=== PATIENT | female | born 1940 | race Caucasian/White ===

== ENCOUNTER 2017-12-20 10:05 | Emergency (ER) | payer MEDICARE, SELFPAY ==
[2017-12-20 10:06] VITALS: BP 182/88; PULSE 69; RESP 23; TEMP 36.6; O2SAT 98; BMI 41.5
[2017-12-20 10:12] VITALS: BP 200/92; PULSE 72; RESP 18; O2SAT 99
--- NOTE | 2017-12-20 10:14 | EKG12_ITS ---
Test Reason : CP Blood Pressure : / mmHG Vent. Rate : 070 BPM Atrial Rate : 070 BPM P-R Int : 194 ms QRS Dur : 080 ms QT Int : 392 ms P-R-T Axes : 061 -06 025 degrees QTc Int : 423 ms Normal sinus rhythm Normal ECG Confirmed by ISMAEL SCHMIDT, MORAIMA ([id number]), editorial assistant VINNY HERNANDEZ ([id number] on 12/31/2017 8:32:32 AM Referred By: SHIV Confirmed By:MORAIMA GUEVARA MD
--- NOTE | 2017-12-20 10:14 | RAD_ITS ---
STUDY: X-RAY CHEST REASON FOR EXAM: Female, 77 years old. CHEST PAIN RADIATING TO BACK SINCE LAST NIGHT. HEADACHE. +NAUSEA TECHNIQUE: Frontal and lateral views of the chest. COMPARISON: None. FINDINGS: The lungs are clear and expanded. There is no demonstrated pleural abnormality. Normal size heart. Normal mediastinum and shantel. Normal visualized pulmonary arteries. Normal visualized aortic arch and descending thoracic aorta. Normal visualized thoracic spine. There is degenerative osteoarthritis of the bilateral shoulders. There is no demonstrated abnormality of the visualized soft tissue structures of the upper abdomen. RAD/Chest PA and Lateral IMPRESSION: Degenerative changes, as described above. No demonstrated acute cardiopulmonary process. Electronically Signed: Kevin Olguin MD at 11:43 EDT Tel , Service support ,
[2017-12-20 10:32] LABS: Absolute Lymphocyte Count 1.46 X10^3/ul (0.83-4.51); Absolute Neutrophil Count 4.5 X10^3/uL (2.0-7.7); Basophil# 0.03 X10^3/uL; Basophil% 0.4 % (0-1); Eosinophil# 0.11 X10^3/uL; Eosinophils% 1.6 % (0-5); Hematocrit 41.8 % (37-47); Hemoglobin 13.5 g/dl (12.0-15.0); Lymphocyte # 1.46 X10^3/ul (4.0); Lymphocyte % 21.5 % (19-41); Mean Corp Hgb Conc 32.3 g/gl (32-36); Mean Corpuscular Volume 95.9 fL (81-99); Mean Platelet Vol. 10.9 fl (6.2-12.0); Monocyte# 0.63 X10^3/uL; Monocyte% 9.3 % (0-10); Neutrophil # 4.53 X10^3/uL (2.7-7.7); Neutrophil % 66.8 % (47-70); Platelet Count 238 K/mm3 (150-450); RBC Distribution Width SD 48.1 fl (35.1-43.9); Red Blood Count 4.36 M/mm3 (4.2-5.4); White Blood Count 6.8 K/mm3 (4.4-11.0)
[2017-12-20 10:33] LABS: POSITIVE COUNT NO; POSITIVE DIFFERENTIAL NO; POSITIVE MORPHOLOGY NO
[2017-12-20 10:51] LABS: AST(SGOT) 14 U/L (15-37); Alanine Aminotransfer ALT/SGPT 19 U/L (13-56); Alkaline Phosphatase 110 U/L (45-117); Anion Gap 7 (5-15); BUN 14 mg/dL (7-18); BUN/Creat Ratio 24.6 RATIO (10-20); Bilirubin, Direct 0.14 mg/dL (0.00-0.30); Calcium,Total 8.8 mg/dL (8.5-10.1); Chloride 108 mmol/L (98-107); Creatinine, Serum 0.57 mg/dL (0.55-1.02); EST Glomerular Filtration Rate 110 mL/min (>60); Est Glom Filt Rate - Afr Amer 133 mL/min (>60); Estimated Creatinine Clearance 43.74 ml/min; Globulin 4.2 g/dL (2.2-4.2); Glucose 125 mg/dL (74-106); Lipase 86 U/L (73-393); Potassium 3.8 mmol/L (3.5-5.1); Protein, Total 7.2 g/dL (6.4-8.2); Sodium Level 141 mmol/L (136-145)
[2017-12-20 12:25] VITALS: BP 170/94; PULSE 64; RESP 18
[2017-12-20 13:13] VITALS: BP 163/73; PULSE 64; RESP 22; O2SAT 97
[2017-12-20 14:45] VITALS: BP 160/78; PULSE 70; RESP 16; O2SAT 98
--- NOTE | 2017-12-20 14:45 | ED.DCSUM_ITS ---
- ER Visit Summary Date of Service: 12/20/17 Chief Complaint: Patient presents with chest pain that started last evening. Pain last evening lasted 5 minutes. Episode of pain this morning that started 0600 has been constant. History of Present Illness: The patient is a 77 F who present with chest pain. Episode last night lasted 5 minutes. The pain was not positional, exertional or related to breathing or food. This morning at 06 100 she developed chest pain that did radiate to the left upper quadrant. There was no associated symptoms. There was no pleuritic component. The pain was not positional. She denies intolerance to greasy foods. She did have pizza last evening, which she states was homemade. She does have history of diabetes. She denies history of PE or DVT. She denies leg pain, swelling discoloration. She denies hematemesis , melena hematochezia. Please read written note for complete detail Physical Examination: Blood pressures 200/92. Vital signs otherwise unremarkable. Head is atraumatic normocephalic. Pupils are equal round reactive. Extraocular muscles are intact. TMs are pearly white with landmarks noted. Nares patent with no drainage. Posterior pharynx without erythema or exudate. Uvula is midline. There is no dysphonia or dysphasia. Trachea is midline. There is no stridor with auscultation of the neck. Heart is regular without murmur, gallop or rub. S1 and S2 are normal. Lungs are clear to auscultation with good movement of air bilaterally. Abdominal exam is remarkable tenderness in the epigastric area. There is no hepatosplenomegaly. There is no Odonnell sign. There is no CVA tenderness. There is no dermatologic lesions noted. There is no palpable pulsatile mass. There is no abdominal bruit. There is no asymmetry, swelling, discoloration, leg vein distention, palpable cords or tenderness along the distribution of the deep venous system. Neuro exam is nonfocal. Pulses in upper and lower externally were palpable and symmetric. Test Results: EKG reveals a sinus rhythm rate of 70 with no ischemic changes. Two-view chest x-ray was degenerative disc disease of the dorsal spine multilevel is otherwise unremarkable. CBC normal. Electro panels marked for a glucose 125 and chloride 108. First troponin is less than 0.015. Patient was reevaluated. She states she had pain that went from her right jaw. 1 hour after presentation the pain went away. This is close in proximity to the time she received her GI cocktail. Understanding that there is a 7% incidence of cardiac ischemia that is alleviated by GI cocktail a repeat troponin was obtained 3 hours later. Repeat troponin is normal and delta 0. Emergency Department Course and Treatment: Workup was undertaken to evaluate patient's chest pain to rule out cardiac versus pulmonary versus GI etiology. Suspect GI etiology. However because she is diabetic and complained of pain that radiated to her jaw a repeat troponin was obtained. Treatment Plan: Discharge to home and follow-up with PCP Dr. Helms Disposition: Discharged home Impression: 1. Central chest pain unknown etiology 2. History of diabetes mellitus 3. Elevated blood sugar in diabetic 4. Elevated blood pressure in nonhypertensive patient This note was generated with [employer] dictation software. It may contain incorrect words, spelling, and punctuation that were not noted in review of the chart prior to signing ED Disposition - Plan for ED Patient: Disposition: Home or Assisted Living Chief Complaint: Chest Pain Instructions: ED Chest Pain Atypical Unkn Cause, ED Hypertension Poss Referrals: Aria Helms MD [Primary Care Provider] - 3-5 Days
== END 2017-12-20 14:49 | disposition home or self-care (01) ==
PROVIDERS: Emergency Provider Emergency Medicine; Family Provider Internal Medicine; PCP Internal Medicine
DX: R07.9 Chest pain, unspecified (principal); R03.0 Elevated blood-pressure reading, without diagnosis of hypertension; E11.65 Type 2 diabetes mellitus with hyperglycemia; E66.9 Obesity, unspecified
CPT/HCPCS: 36415; 71046; 80048; 80076; 83690; 84484; 85025; 93005; 99285; A4216

== ENCOUNTER 2019-03-31 17:43 | Emergency (ER) | payer MEDICARE, SELFPAY ==
[2019-03-31 17:44] VITALS: BP 141/73; PULSE 76; RESP 20; TEMP 36.8; O2SAT 96; BMI 39.2
--- NOTE | 2019-03-31 18:06 | EKG12_ITS ---
Test Reason : Blood Pressure : / mmHG Vent. Rate : 073 BPM Atrial Rate : 073 BPM P-R Int : 186 ms QRS Dur : 082 ms QT Int : 390 ms P-R-T Axes : 068 -07 030 degrees QTc Int : 429 ms Normal sinus rhythm Normal ECG Confirmed by ISMAEL SCHMIDT, MORAIMA ([id number]), commercial production editor MARY STEVENS ([id number]) on 04/03/2019 10:06:12 AM Referred By: SAIMA Confirmed By:MORAIMA GUEVARA MD
--- NOTE | 2019-03-31 18:06 | CT_ITS ---
We are attempting to reach an attending provider to discuss findings. An addendum with communication details will be sent when the communication is complete. STUDY: CTA CHEST REASON FOR EXAM: Female, 79 years old. Chest pain. Recent surgery. RADIATION DOSAGE (If Supplied By Facility): CTDIvol = ( 7.91 ) mGy, DLP = ( 459.81 ) mGycm TECHNIQUE: The examination was performed with the intravenous administration of IV 100mL Isovue-370 100ML. Post-processing of the angiographic images was performed, with multiplanar reformation and 3D reconstruction. Individualized dose optimization techniques were used for this CT. COMPARISON: None. FINDINGS: There are small subsegmental pulmonary emboli in the posterior segment of the right lower lobe (image 76 series 2) and in the anterior segment of the right lower lobe (image 96 series 2). There are no additional pulmonary emboli. The pulmonary arteries are normal in caliber. There is no evidence of thoracic aortic aneurysm or dissection. The heart and pericardium are within normal limits. There are coronary artery calcifications noted. There are no pulmonary infiltrates or pleural effusions. There is no pneumothorax. Images through the upper abdomen demonstrate postsurgical changes from a gastric bypass. There are no destructive osseous lesions. CT/CTA Chest W/WO Contrast IMPRESSION: Small subsegmental pulmonary emboli in the right lower lobe. No additional pulmonary emboli. No evidence of thoracic aortic aneurysm or dissection. Clear lungs. Coronary artery disease. Electronically Signed: Thomas Ramirez, at 19:46 EDT Tel , Service support ,
[2019-03-31 18:22] LABS: Absolute Lymphocyte Count 1.72 X10^3/uL (0.83-4.51); Absolute Neutrophil Count 6.5 X10^3/uL (2.0-7.7); Basophil# 0.05 X10^3/uL; Basophil% 0.5 % (0-1); Eosinophil# 0.27 X10^3/uL; Eosinophils% 2.9 % (0-5); Hematocrit 41.7 % (37-47); Hemoglobin 13.2 g/dL (12.0-15.0); Lymphocyte # 1.72 X10^3/ul (4.0); Lymphocyte % 18.2 % (19-41); Mean Corp Hgb Conc 31.7 g/dL (32-36); Mean Corpuscular Hgb 30.6 pg (27.0-32.0); Mean Corpuscular Volume 96.5 fL (81-99); Mean Platelet Vol. 11.1 fl (6.2-12.0); Monocyte# 0.82 X10^3/uL; Monocyte% 8.7 % (0-10); NRBC Flagged by Analyzer 0 % (0-5); Neutrophil # 6.54 X10^3/uL (2.7-7.7); Neutrophil % 69.2 % (47-70); Platelet Count 247 K/mm3 (150-450); RBC Distribution Width CV 13.3 % (11.6-14.6); RBC Distribution Width SD 47.7 fl (35.1-43.9); Red Blood Count 4.32 M/mm3 (4.2-5.4); White Blood Count 9.5 K/mm3 (4.4-11.0)
[2019-03-31 18:30] VITALS: O2SAT 96
[2019-03-31 18:42] LABS: Anion Gap 8 (5-15); BUN 10 mg/dL (7-18); BUN/Creat Ratio 19.3 RATIO (10-20); Calcium,Total 8.7 mg/dL (8.5-10.1); Chloride 107 mmol/L (98-107); Creatinine, Serum 0.52 mg/dL (0.55-1.02); EST Glomerular Filtration Rate 122 mL/min (>60); Est Glom Filt Rate - Afr Amer 148 mL/min (>60); Glucose 128 mg/dL (74-106); Potassium 3.6 mmol/L (3.5-5.1); Sodium Level 139 mmol/L (136-145)
--- NOTE | 2019-03-31 18:57 | ED.VISSUMM ---
- ER Visit Summary Date of Service: 03/31/19 Chief Complaint: Chest pain History of Present Illness: The patient is a 79 F who presents with chest pain that began today. Patient states she had a recent herniorrhaphy. Patient states the pain is aching. Patient states the pain is over the substernal area and radiates into her left chest. Patient states pain does radiate around into her back under her left scapula and between her scapula. Patient states it did get worse with eating earlier today. Patient states she took a Vicodin prior to arrival which has helped. Patient admits to some nausea. Patient also admits to some acid reflux symptoms. Physical Examination: Vital signs are stable. Patient is afebrile. Patient is in no acute distress. Oral mucosa is pink and moist. Neck is supple. Trachea is midline. There is no JVD noted. Heart was regular rate and rhythm. Lungs are clear and equal bilaterally. Abdomen is soft. Bowel sounds are normal. There is no tenderness. There is no guarding noted. Skin is warm dry. Cranial nerves II through XII are intact. There are no focal motor or sensory deficits noted. Test Results: EKG showed normal sinus rhythm with a rate of 73. There are no acute ST or T wave changes. CTA of the chest was obtained. There are small subsegmental pulmonary emboli in the anterior and posterior segments of the right lower lobe. CBC, basic metabolic profile, troponin were obtained and were essentially within normal limits. Emergency Department Course and Treatment: Patient was not given aspirin due to her allergy. Patient was given Zofran. Patient was given a dose of Lovenox here in the emergency department. She remained hemodynamically stable during her entire emergency department course, I feel she is safe to be discharged home since the pulmonary emboli are very small and subsegmental and she is hemodynamically stable. Patient was started on Xarelto. Patient was instructed to follow-up with her primary care physician in 5 to 7 days. Patient understood and was agreeable with the plan. All questions were answered. Disposition: Discharge home Impression: Pulmonary emboli This note was generated with [employer] software. It may contain incorrect words, spelling, and punctuation that were not noted in review of the chart prior to signing ED Disposition - Plan for ED Patient: Disposition: Home or Assisted Living Diagnosis: Pulmonary emboli Instructions: Pulmonary Embolism Prescriptions: Rivaroxaban [Xarelto] 15 mg PO BID #42 tab Prescription Printed Referrals: Aria Helms MD [Primary Care Provider] - 5-7 Days
[2019-03-31] MEDS: DiphenhydrAMINE 50 MG/ML Syringe 25 MG IV (19:53)
[2019-03-31 20:16] VITALS: BP 135/69; PULSE 73; RESP 21; O2SAT 96
[2019-03-31 20:58] VITALS: BP 139/63; PULSE 70; RESP 21; O2SAT 97
[2019-03-31] MEDS: Enoxaparin 120 MG/0.8 ML Syringe SC (21:11)
--- NOTE | 2019-03-31 21:23 | NURSING ---
pt knows to follow up with her primary care doctor right away and started on xarelto and instructed on how to take the medication.
== END 2019-03-31 21:23 | disposition home or self-care (01) ==
PROVIDERS: Emergency Provider Emergency Medicine; Family Provider Internal Medicine; PCP Internal Medicine
DX: I26.93 Single subsegmental thrombotic pulmonary embolism without acute cor pulmonale (principal); E66.9 Obesity, unspecified; E11.9 Type 2 diabetes mellitus without complications
CPT/HCPCS: 71275; 80048; 84484; 85025; 93005; 96372; 96374; 99285; Q9967; A4216

== ENCOUNTER 2020-08-27 13:48 | Emergency (ER) | payer MEDICARE, SELFPAY ==
[2020-08-27 13:49] VITALS: BP 157/4; PULSE 86; RESP 16; TEMP 36.1; O2SAT 96; BMI 38.6
--- NOTE | 2020-08-27 13:57 | EKG12_ITS ---
Test Reason : CP Blood Pressure : / mmHG Vent. Rate : 071 BPM Atrial Rate : 078 BPM P-R Int : 180 ms QRS Dur : 084 ms QT Int : 406 ms P-R-T Axes : 063 -05 005 degrees QTc Int : 441 ms Sinus rhythm with Premature atrial complexes Minimal voltage criteria for LVH, may be normal variant Borderline ECG Confirmed by ISMAEL SCHMIDT, MORAIMA ([id number]), editorial clerk MARY STEVENS ([id number]) on 08/29/2020 9:50:32 AM Referred By: SHERIN Confirmed By:MORAIMA GUEVARA MD
[2020-08-27 14:07] LABS: Absolute Lymphocyte Count 1.81 X10^3/uL (0.83-4.51); Absolute Neutrophil Count 6.7 X10^3/uL (2.0-7.7); Basophil# 0.07 X10^3/uL; Basophil% 0.7 % (0-1); Eosinophil# 0.14 X10^3/uL; Eosinophils% 1.5 % (0-5); Hematocrit 41.8 % (37-47); Hemoglobin 13.6 g/dL (12.0-15.0); Lymphocyte # 1.81 X10^3/ul (4.0); Lymphocyte % 18.8 % (19-41); Mean Corp Hgb Conc 32.5 g/dL (32-36); Mean Corpuscular Hgb 31.3 pg (27.0-32.0); Mean Corpuscular Volume 96.3 fL (81-99); Mean Platelet Vol. 10.7 fl (6.2-12.0); Monocyte# 0.82 X10^3/uL; Monocyte% 8.5 % (0-10); NRBC Flagged by Analyzer 0 % (0-5); Neutrophil # 6.73 X10^3/uL (2.7-7.7); Neutrophil % 69.9 % (47-70); Platelet Count 249 K/mm3 (150-450); RBC Distribution Width CV 13.5 % (11.6-14.6); RBC Distribution Width SD 48.2 fl (35.1-43.9); Red Blood Count 4.34 M/mm3 (4.2-5.4); White Blood Count 9.6 K/mm3 (4.4-11.0)
--- NOTE | 2020-08-27 14:17 | ED.DCSUM_ITS ---
History of Present Illness Chief Complaint: Chest Pain Informant: Patient Onset: Today Context: Sudden Onset Timing: Intermittent - Initially intermittent now continuous Quality: Pain. Patient cannot be more specific. Location: Anterior chest and migratory Current Severity: Moderate Maximum Severity: Moderate Worsened by: Nothing Relieved by: Nothing Associated Symptoms: No associated symptoms or radiation Narrative: Patient is an elderly woman with history of pulmonary embolus with similar presentation, chest pain of unknown etiology prior to the pulmonary embolus, type 2 diabetes, hypertension and hyperlipidemia. She states she was awakened from sleep at 0300. The pain was short in duration. She took a hydrocodone tablet with slight improvement. The pain became constant at 1 PM. She states she had a similar presentation when she was diagnosed with pulmonary embolus and 2019. The pain is not pleuritic. She denies leg pain, swelling discoloration. She is on gabapentin. She denies diabetic neuropathy. She denies peripheral arterial disease. She denies headache, visual, ocular auditory symptoms. She has trouble speech or swallowing. She denies hematemesis, melena medic easier. She denies abdominal pain. She denies back pain. She denies intolerance to food. Prior similar symptoms: Yes - Very embolus 2019 presently on Eliquis Recent Illness/Hospitalization: No - Past Medical History (1) History of type 2 diabetes mellitus Status: Acute (2) History of hypertension Status: Acute (3) History of hypercholesterolemia Status: Acute (4) History of pulmonary embolus (PE) Status: Acute (5) History of pernicious anemia Status: Acute (6) Diabetes mellitus, type 2 Status: Chronic (7) Obesity (BMI 30.0-34.9) Status: Chronic Past Medical History - Allergies and Home Meds Allergies/Adverse Reactions: Allergies adhesive Allergy (Verified 03/31/19 17:57) Rash aspirin [ASA] Allergy (Verified 03/31/19 17:57) Anaphylaxis atorvastatin [From Lipitor] Allergy (Verified 03/31/19 17:57) Unknown exenatide [From Byetta] Allergy (Verified 03/31/19 17:57) Unknown ezetimibe [From Zetia] Allergy (Verified 03/31/19 17:57) Rash irbesartan [From Avapro] Allergy (Verified 03/31/19 17:57) Swelling niacin Allergy (Verified 08/27/20 13:48) Unknown Penicillins Allergy (Verified 08/27/20 13:48) Rash pravastatin Allergy (Verified 08/27/20 13:48) Rash rosuvastatin [From Crestor] Allergy (Verified 08/27/20 13:48) Unknown simvastatin [From Zocor] Allergy (Verified 08/27/20 13:48) Rash Zfamqhn-Hgd-Gwz Reductase Inhibitor Allergy (Verified 08/27/20 13:48) Other erythromycin base Adverse Reaction (Verified 08/27/20 13:48) Other etodolac Adverse Reaction (Verified 08/27/20 13:48) Unknown metformin Adverse Reaction (Verified 08/27/20 13:48) Diarrhea NSAIDS (Non-Steroidal Anti-Inflamma Adverse Reaction (Verified 08/27/20 13:48) Other Sulfa (Sulfonamide Antibiotics) Adverse Reaction (Verified 08/27/20 13:48) Rash duoderm Allergy (Uncoded 08/27/20 13:48) Rash ointments Allergy (Uncoded 08/27/20 13:48) Rash eggs Adverse Reaction (Uncoded 08/27/20 13:48) Diarrhea Primary Care Physician: Aria Helms MD [Primary Care Provider] - Prior records reviewed: Yes Surgical History: total knee arthroplasty, - - Gastric bypass surgery, colonic surgery for removal of polyps, sinus surgeries, tubal ligation Lives: Spouse/ Significant Other Smoking Status: Never smoker Alcohol: None Drugs: None Review of Systems General: Denies: Chills, Fever, Malaise, Subjective, Sweats Eyes: Denies: Visual changes - bilaterally, Blurred Vision - bilaterally, Diplopia ENT: Denies: Bilateral ear pain, Rhinorrhea, Sore throat Cardiovascular: Reports: Chest pain. Denies: Palpitations, Heart racing Respiratory: Denies: Dyspnea, Cough, Dyspnea on exertion Gastrointestinal: Denies: Abdominal pain, Nausea, Vomiting, Diarrhea, Melena, Hematochezia Genitourinary: Denies: Dysuria, Hematuria, Frequency Musculoskeletal: Denies: Myalgias, Arthralgias, Neck pain, Back pain, Swelling, Extremity Pain, -, - Skin: Denies: Rash, Wounds Neurological: Denies: Headache, Weakness, Numbness Psych: Denies: Depression, Anxiety Hematologic: Denies: Easy bruising, Easy bleeding Physical Exam Vital Signs/Narrative: Vital Signs Temp Pulse Resp BP Pulse Ox 08/27/20 13:49 96.9 F L 86 16 157/4 H 96 Inital Vital Signs reviewed: Yes General: Well nourished, Well developed, Obese, No Acute Distress Head: Normocephalic, Atraumatic Eyes: Perrl, EOMI. Negative for: Pale conjunctiva, Scleral icterus ENT: Moist mucous membranes, No rhinorrhea Neck: Supple, Nontender, No lymphadenopathy, No JVD Cardiovascular: Regular rate, Regular rhythm, No murmurs, Normal S1, Normal S2 Respiratory: No distress, CTA bilaterally, Chest nontender Abdomen: Soft, Nontender, Nondistended, Normal bowel sounds, No masses Back: Nontender, Normal Inspection. Negative for: CVA tenderness Extremities: Nontender, No edema, - - There is no asymmetry, swelling, discoloration, leg vein distention, palpable cords or tenderness along the distribution of the deep venous system. Skin: Normal color, No rash, No Trauma. Negative for: Cyanosis, Diaphoresis, Jaundice Neurological: Alert, Oriented x3, Cranial nerves II-XII grossly intact, Normal Strength, Normal Sensation Psychological: Normal affect, Normal Mood Diagnostic/Tx/Re-eval Chest X-Ray - ED: 1 View, Read by ED Physician, Normal, Heart, Mediastinum, Bony Structures, No Acute Disease, Chronic Changes Impressions Chest X-Ray 08/27/20 14:26 IMPRESSION: No acute abnormality is seen. Electronically Signed: Javier Huffman MD at 15:02 EDT , Service support , Chest CTA 08/27/20 14:37 IMPRESSION: Small subsegmental pulmonary emboli posteriorly in the right lower lobe. No additional pulmonary emboli. No thoracic aortic aneurysm or dissection. Clear lungs. Coronary artery disease. N.B. : The above information has been verbally conveyed by Thomas Ramirez MD to Darrell Morris MD, on 08/27/2020 16:17:07 (ET). Electronically Signed: Thomas Ramirez MD at 16:18 EDT Tel , Service support , 08/27/20 14:26 Chest 1 View (Portable) [RAD] Stat 08/27/20 14:37 CTA Chest W/WO Contrast [CT] Stat Laboratory Results 08/27/20 08/27/20 08/27/20 13:57 13:57 13:57 WBC 9.6 RBC 4.34 Hgb 13.6 Hct 41.8 MCV 96.3 MCH 31.3 MCHC 32.5 RDW Std Deviation 48.2 H RDW Coeff of Gail 13.5 Plt Count 249 MPV 10.7 Immature Gran % (Auto) 0.600 Neut % (Auto) 69.9 Lymph % (Auto) 18.8 L Baxter % (Auto) 8.5 Eos % (Auto) 1.5 Baso % (Auto) 0.7 Absolute Neuts (auto) 6.7 Absolute Lymphs (auto) 1.81 Nucleated RBC % 0 D-Dimer Quant (PE/DVT) 1.16 H* Sodium 137 Potassium 3.9 Chloride 106 Carbon Dioxide 26.0 Anion Gap 5 BUN 19 H Creatinine 0.80 Estim Creat Clear Calc 54.26 Est GFR (MDRD) Af Amer 88 Est GFR (MDRD) Non-Af 73 BUN/Creatinine Ratio 23.6 H Glucose 142 H Calcium 8.8 Troponin I < 0.015 With a chest x-ray that was unremarkable and a D-dimer of 1.16 which is elevated even after correction for age and similar presentation at 2019 teen for PE will obtain CTA. CTA reveals posterior subsegmental pulmonary embolus. Patient was questioned whether she is taking Xarelto. Both the patient and her states she was instructed by her doctor to discontinue it. - EKG Initial EKG Interpretation: Sinus Rhythm - Normal sinus rhythm rate of 71 with premature atrial beats noted. IN interval is 180 ms. Cures duration 84 ms. QT duration 406 ms. [place] is normal. There is motion artifact noted. - Medical Decision Making Diagnosis would include noncardiac chest pain, cardiac angina, NSTEMI, pulmonary embolus, chest pain of unknown etiology, esophageal spasm, esophagitis, hiatal hernia and reflux. Doubt biliary disease. EKG, chest x-ray and appropriate labs were obtained. ED Disposition - Plan for ED Patient: Disposition: Home or Assisted Living Diagnosis: Pulmonary embolus Instructions: Pulmonary Embolism Prescriptions: Apixaban [Eliquis] 5 mg PO BID #74 tablet Transmission Status: Pending to ELISA [id number] Referrals: Aria Helms MD [Primary Care Provider] - 1-2 Weeks Additional Instructions: You will need to be on Eliquis for the remainder of your life.
[2020-08-27 14:19] LABS: D-Dimer Quantitative (DVT/PE) 1.16 FEU/ug/m (0.27-0.49)
[2020-08-27 14:23] LABS: Anion Gap 5 (5-15); BUN 19 mg/dL (7-18); BUN/Creat Ratio 23.6 RATIO (10-20); Calcium,Total 8.8 mg/dL (8.5-10.1); Chloride 106 mmol/L (98-107); EST Glomerular Filtration Rate 73 mL/min (>60); Est Glom Filt Rate - Afr Amer 88 mL/min (>60); Estimated Creatinine Clearance 54.26 ml/min; Glucose 142 mg/dL (74-106); Potassium 3.9 mmol/L (3.5-5.1); Sodium Level 137 mmol/L (136-145)
--- NOTE | 2020-08-27 14:26 | RAD_ITS ---
STUDY: X-RAY CHEST REASON FOR EXAM: Female, 80 years old. Chest pain TECHNIQUE: Single AP portable view of the chest. COMPARISON: Comparison is made with prior study dated 12/20/2017. FINDINGS: EKG electrodes are seen. The lungs are clear and expanded. There is no demonstrated pleural abnormality. Normal size heart. Normal mediastinum and shantel. Normal visualized pulmonary arteries. There is atherosclerotic calcification of the aortic arch with tortuosity. There are diffuse degenerative changes of the visualized thoracic spine. Normal visualized ribs, clavicles, and shoulders. There is no demonstrated abnormality of the visualized soft tissue structures of the upper abdomen. RAD/Chest 1 View (Portable) IMPRESSION: No acute abnormality is seen. Electronically Signed: Javier Huffman MD at 15:02 EDT , Service support ,
--- NOTE | 2020-08-27 14:37 | CT_ITS ---
STUDY: CTA CHEST REASON FOR EXAM: Female, 80 years old. Chest pain, elevated D-dimer prior history of PE RADIATION DOSAGE (If Supplied By Facility): CTDIvol = ( 12.64 ) mGy, DLP = ( 452.84 ) mGycm TECHNIQUE: The examination was performed with the intravenous administration of IV 100mL Isovue-370. Post-processing of the angiographic images was performed, with multiplanar reformation and 3D reconstruction. Individualized dose optimization techniques were used for this CT. COMPARISON: 03/31/19 FINDINGS: There are small subsegmental pulmonary emboli posteriorly in the right lower lobe. There are no additional pulmonary emboli. There is no thoracic aortic aneurysm or dissection. There are no pulmonary infiltrates or pleural effusions. There is no pneumothorax. The heart and pericardium are within normal limits. There are coronary artery calcifications noted. There is no thoracic lymphadenopathy. Images through the upper abdomen demonstrate postsurgical changes from a gastric bypass. There are no destructive osseous lesions. CT/CTA Chest W/WO Contrast IMPRESSION: Small subsegmental pulmonary emboli posteriorly in the right lower lobe. No additional pulmonary emboli. No thoracic aortic aneurysm or dissection. Clear lungs. Coronary artery disease. N.B. : The above information has been verbally conveyed by Thomas Ramirez MD to Darrell Morris MD, on 08/27/2020 16:17:07 (ET). Electronically Signed: Thomas Ramirez MD at 16:18 EDT Tel , Service support ,
[2020-08-27 15:28] VITALS: BP 131/70; PULSE 67; RESP 18; O2SAT 96
[2020-08-27 16:05] VITALS: BP 155/81; PULSE 69; RESP 16; O2SAT 100
[2020-08-27] MEDS: APIXABAN 5 MG TABLET 10 MG PO (17:04)
[2020-08-27 17:06] VITALS: BP 132/66; PULSE 64; RESP 18; O2SAT 96
== END 2020-08-27 17:08 | disposition home or self-care (01) ==
PROVIDERS: Emergency Provider Emergency Medicine; PCP Internal Medicine
DX: I26.93 Single subsegmental thrombotic pulmonary embolism without acute cor pulmonale (principal); I10 Essential (primary) hypertension; E11.9 Type 2 diabetes mellitus without complications; E78.5 Hyperlipidemia, unspecified; E66.9 Obesity, unspecified; Z86.711 Personal history of pulmonary embolism
CPT/HCPCS: 71045; 71275; 80048; 84484; 85025; 85379; 93005; 99284; Q9967; A4216

== ENCOUNTER 2022-02-16 16:42 | Emergency (ER) | payer MEDICARE, SELFPAY ==
[2022-02-16 16:44] VITALS: BP 167/116; PULSE 78; RESP 16; TEMP 36.1; O2SAT 98; BMI 39.6
--- NOTE | 2022-02-16 17:01 | CT_ITS ---
STUDY: CTA CHEST REASON FOR EXAM: Female, 82 years old. Chest pain like prior PEs RADIATION DOSAGE (If Supplied By Facility): CTDIvol = ( 15.01 ) mGy, DLP = ( 445.18 ) mGycm TECHNIQUE: The examination was performed with the intravenous administration of IV 100mL Isovue-370. Post-processing of the angiographic images was performed, with multiplanar reformation and 3D reconstruction. Individualized dose optimization techniques were used for this CT. COMPARISON: 08/27/2020 FINDINGS: Normal enhancement of the main pulmonary artery and right and left pulmonary arteries. Normal enhancement of the bilateral peripheral pulmonary arteries. There is no demonstrated pulmonary embolism. Atherosclerotic changes of the aorta without evidence for aneurysm.. There is no demonstrated aortic dissection. Heart size is normal. There is multivessel coronary artery calcification. Normal mediastinum. Normal hilar regions. Normal visualized trachea and bronchi. The lungs are well expanded. Normal pulmonary parenchyma. Normal pleura. Normal chest wall structures. Dorsal spine demonstrates advanced arthritic changes.. Postsurgical changes of the stomach.. Previously noted pulmonary emboli are not visualized consistent with resolution CT/CTA Chest W/WO Contrast IMPRESSION: ASHD. No acute cardiopulmonary pathology. No evidence for aortic aneurysm or pulmonary emboli Electronically Signed: Napoleon Webster MD at 18:33 EDT ,
--- NOTE | 2022-02-16 17:02 | EKG12_ITS ---
Test Reason : CP Blood Pressure : / mmHG Vent. Rate : 071 BPM Atrial Rate : 071 BPM P-R Int : 216 ms QRS Dur : 078 ms QT Int : 388 ms P-R-T Axes : 000 -08 011 degrees QTc Int : 421 ms Sinus rhythm with 1st degree A-V block with Premature atrial complexes with Aberrant conduction Minimal voltage criteria for LVH, may be normal variant ( R in aVL ) Borderline ECG Confirmed by ISMAEL SCHMIDT, MORAIMA ([id number]), slot editor MARY STEVENS ([id number]) on 02/18/2022 11:00:23 AM Referred By: ANAHY Confirmed By:MORAIMA GUEVARA MD
--- NOTE | 2022-02-16 17:03 | EDS_ITS ---
HPI History of Present Illness Chief Complaint: Chest Pain Detail of Chief Complaint: Abrupt onset of by sternal chest pain like prior PE x2 Informant: patient Onset/Context/Timing Onset: Hours (1600) Activity at onset: sudden Timing: Continuous Quality: Positive for Aching Location: Right Parasternal and Left Parasternal Current Severity: Moderate Maximum Severity: Moderate Worsened By: Nothing Relieved By: Nothing Associated Symptoms: Positive for Dyspnea (Patient with porch chronic shortness of breath); Negative for Nausea, Vomiting, Diaphoresis, Cough, Fever, Lightheadedness, Acid Reflux or Palpitations Narrative Narrative: Patient is an elderly woman who has had PE x2. She states her Eliquis was discontinued on Wednesday because she is scheduled to have a spinal injection tomorrow. She presents because of abrupt onset of chest pain similar to her prior PEs that started at 1600. She denies history coronary disease or congestive heart failure. She does have history of hypertension, hypercholesterolemia and type 2 diabetes. Patient denies fever, chills night sweats. Patient denies heartburn, indigestion, chest pressure. There is no radiation of the pain. She denies leg pain, swelling or discoloration. She does report dark-colored stool because she is on iron for iron deficiency anemia. It is not black or maroon in color. She denies orthostatic symptoms. She denies dyspnea on exertion, orthopnea or PND. Prior Similar Symptoms: Yes (PE) Recent Illness/Hospitalization: No CVD Risk Factors: Positive for Hypertension, Diabetes and Hypercholesterolemia; Negative for Family History 1' </=55 or Smoking PE Risk Factors: Positive for Prior DVT or PE; Negative for Recent Travel/Surgery, Recent Immobilization, Cancer or OCP + Smoking + >/=35 TAD Risk Factors: Positive for Hypertension; Negative for Marfan's Syndrome or Family History PFSH PFSH Home Medications calcitriol 0.5 mcg capsule 0.5 mcg PO DAILY 03/04/15 [History Last Taken Unknown] gabapentin 300 mg capsule 300 mg PO QHS 03/04/15 [History Last Taken Unknown] metformin 500 mg tablet,extended release 24 hr 2,000 mg PO DAILY 06/13/17 [History Last Taken Unknown] acetaminophen 500 mg tablet 500 mg PO QHS 03/31/19 [History Last Taken Unknown] ascorbic acid (vitamin C) 500 mg tablet 500 mg PO DAILY 03/31/19 [History Last Taken Unknown] biotin 2,500 mcg capsule 2,500 mcg PO DAILY 03/31/19 [History Last Taken Unknown] calcium carbonate 600 mg-vitamin D3 5 mcg (200 unit) tablet 1 ea PO TID 03/31/19 [History Last Taken Unknown] cetirizine 10 mg capsule 10 mg PO DAILY 03/31/19 [History Last Taken Unknown] clobetasol-emollient 0.05 % topical cream 1 applic TP QHS 03/31/19 [History Last Taken Unknown] cyanocobalamin (vitamin B-12) 1,000 mcg/mL injection solution 1,000 mcg IM Q30D 03/31/19 [History Last Taken Unknown] hydrocodone 7.5 mg-acetaminophen 325 mg tablet 1 ea PO 4X/DAY PRN PRN Pain Or Fever 03/31/19 [History Last Taken Unknown] lidocaine HCl 2 % mucosal jelly 1 applic TP TID 03/31/19 [History Last Taken Unknown] multivitamin with minerals 1 ea PO DAILY 03/31/19 [History Last Taken Unknown] oxybutynin chloride 10 mg tablet,extended release 24 hr 10 mg PO DAILY PRN PRN overactive bladder 03/31/19 [History Last Taken Unknown] rivaroxaban 15 mg tablet 15 mg PO BID #42 tabs 03/31/19 [Rx Last Taken Unknown] apixaban 5 mg tablet 5 mg PO BID #74 tabs 08/27/20 [Rx Last Taken Unknown] Allergy/AdvReac Type Severity Reaction Status Date / Time adhesive Allergy Rash Verified 02/16/22 16:43 aspirin [ASA] Allergy Anaphylaxis Verified 02/16/22 16:43 atorvastatin [From Lipitor] Allergy Unknown Verified 02/16/22 16:43 exenatide [From Byetta] Allergy Unknown Verified 02/16/22 16:43 ezetimibe [From Zetia] Allergy Rash Verified 02/16/22 16:43 irbesartan [From Avapro] Allergy Swelling Verified 02/16/22 16:43 niacin Allergy Unknown Verified 02/16/22 16:43 Penicillins Allergy Rash Verified 02/16/22 16:43 pravastatin Allergy Rash Verified 02/16/22 16:43 rosuvastatin [From Crestor] Allergy Unknown Verified 02/16/22 16:43 simvastatin [From Zocor] Allergy Rash Verified 02/16/22 16:43 [id number] Reductase Allergy Other Verified 02/16/22 16:43 Inhibitor [Wqhlnnk-Shc-Fit Reductase Inhibitor] erythromycin base AdvReac Other Verified 02/16/22 16:43 etodolac AdvReac Unknown Verified 02/16/22 16:43 metformin AdvReac Diarrhea Verified 02/16/22 16:43 NSAIDS (Non-Steroidal AdvReac Other Verified 02/16/22 16:43 Anti-Inflamma Sulfa (Sulfonamide AdvReac Rash Verified 02/16/22 16:43 Antibiotics) duoderm Allergy Rash Uncoded 02/16/22 16:43 ointments Allergy Rash Uncoded 02/16/22 16:43 eggs AdvReac Diarrhea Uncoded 02/16/22 16:43 Social History (Updated 02/16/22 @ 17:[address] Darrell Morris MD) household members: spouse Smoking Status: Never smoker substance use type: does not use ROS ROS ED Constitutional Constitutional ED: Denies chills, fever(s), subjective, sweats or weight loss Eyes Eyes: Reports none; Denies blurry vision or change in vision ENT ENT ED: Denies ear pain, rhinorrhea or sore throat Cardiovascular Cardiovascular: Reports as per HPI; Denies chest pain, orthopnea, palpitations, paroxysmal nocturnal dyspnea or racing heartbeat Respiratory/Chest Respiratory/Chest: Reports dyspnea; Denies cough, dyspnea on exertion, orthopnea or paroxysmal nocturnal dyspnea Gastrointestinal Gastrointestinal: Denies abdominal pain, constipation, diarrhea, melena, nausea or vomiting Genitourinary Genitourinary ED: Denies dysuria, hematuria or urinary frequency Musculoskeletal Musculoskeletal: Denies arthralgias, back pain, myalgias or neck pain Integumentary Denies Abrasions or rash Neurologic Neurologic: Denies headache(s) or paresthesias Psychiatric Psychiatric: Denies anxiety or depression Endocrine Endocrinology: Denies cold intolerance or heat intolerance Hematologic/Lymphatic Hematologic/Lymphatic: Denies easy bleeding, easy bruising or lymphadenopathy EXAM Physical Exam Const Vital Signs: 02/16/22 16:44 02/16/22 18:27 02/16/22 17:43 Temperature 96.9 F L Temperature Source Temporal Pulse Rate 78 Respiratory Rate 16 16 Respiratory Effort Normal Non-Labored Blood Pressure 167/116 H Blood Pressure Mean 133 Pulse Ox 98 Oxygen Delivery Method Room Air 02/16/22 18:43 Temperature Temperature Source Pulse Rate Respiratory Rate 16 Respiratory Effort Blood Pressure Blood Pressure Mean Pulse Ox Oxygen Delivery Method Positive well nourished, well developed and obese General Appearance ED: well developed and NAD; Negative for pallor Nutritional Appearance: obese HEENT Reports TM's clear and moist mucous membranes HEENT Narrative: Ears normal. Nares patent. Uvula midline. No deviation tongue with protrusion. No erythema exudate the posterior pharynx. normocephalic and atraumatic Tympanic Membrane ED: Yes TM's clear Eyes PERRL and EOMs intact bilaterally General Eye ED: Negative for pale conjunctiva or scleral icterus Neck no lymphadenopathy, supple and no JVD Neck Narrative: Trachea is midline. There is no inspiratory expiratory stridor. Chest Wall inspection of chest normal and palpation of chest normal Resp normal respiratory effort and clear to auscultation bilaterally Cardio regular rate, regular rhythm, S1 normal heart sound, S2 normal heart sound and no murmurs Peripheral Pulses: pulses 2+ throughout GI normal to inspection, nondistended, normoactive bowel sounds, soft to palpation, non-tender, non-distended and no masses; Negative for hepatosplenomegaly GI Narrative: There is no palpable or pulsatile mass. There is no abdominal bruit. Back/Spine no CVA tenderness Extremity normal to inspection Extremity Narrative: There is no asymmetry, swelling, discoloration, leg vein distention, palpable cords or tenderness along the distribution of the deep venous system. General Extremety ED: Negative for pulses abnormal General Extremity: Negative for pulses abnormal Neuro oriented x3, CN's II-XII intact bilaterally and no sensory deficits noted Sensorium / Orientation: awake and alert Motor Exam: strength 5/5 throughout Psych mental status grossly normal Skin no rashes or lesions noted and no wounds General Skin Exam: Negative for jaundice or pallor Heart Score History: Slightly/Non-Suspicious Age: >/= 65 years Risk Factors: >/= 3 Risk Factors or History of CAD Troponin: </= Normal Limit Score: 4 MDM MDM MDM Narrative Medical decision making narrative: She presents with chest pain similar to prior PEs. In light of the fact that she discontinue her Eliquis for surgical procedure suspect pulmonary embolus. Will obtain troponin in the event this is an atypical presentation for cardiac specially since she is elderly and has history of diabetes. Lab Data Attestation: I reviewed the patient's lab results. Lab results narrative: Blood work is unremarkable. First troponin is normal. CTA of the chest was negative. Patient will not wait for 2-hour troponin. Labs: Laboratory Results - last 24 hr 02/16/22 02/16/22 02/16/22 17:07 17:07 18:17 WBC 9.1 RBC 4.18 L Hgb 12.3 Hct 39.5 MCV 94.5 MCH 29.4 MCHC 31.1 L RDW Std Deviation 48.5 H RDW Coeff of Gail 14.0 Plt Count 317 MPV 11.0 Immature Gran % (Auto) 0.700 Neut % (Auto) 68.0 Lymph % (Auto) 19.8 [place] % (Auto) 9.4 Eos % (Auto) 1.4 Baso % (Auto) 0.7 Absolute Neuts (auto) 6.2 Absolute Lymphs (auto) 1.81 Nucleated RBC % 0 Sodium 141 Potassium 4.0 Chloride 109 H Carbon Dioxide 26.0 Anion Gap 6 BUN 14 Creatinine 0.66 Estim Creat Clear Calc 42.00 Est GFR (MDRD) Af Amer 110 Est GFR (MDRD) Non-Af 91 BUN/Creatinine Ratio 21.1 H Glucose 85 Calcium 8.9 Troponin I High Sens 8 POC Glucose 64 L Radiography Diagnostic Testing: Clinical Impression(s) from Imaging Studies Chest CTA 02/16/22 17:01 IMPRESSION: ASHD. No acute cardiopulmonary pathology. No evidence for aortic aneurysm or pulmonary emboli Electronically Signed: Napoleon Webster MD at 18:33 EDT Reading Location ID and State: [address] [place] [address] , Service support , EKG Initial EKG: Attestation: I personally reviewed and interpreted this EKG as follows: Interpretation: Sinus Rhythm (Sinus rhythm with ventricular to 71 and first-degree AV block. VT interval 216 ms. QS duration 78 ms. QT duration 388 ms. [place] is normal.) Discharge Plan Triage Chief Complaint: Chest Pain ED Provider: Darrell Morris Dx/Rx/DC Orders Clinical Impression: Chest pain, precordial, Obesity (BMI 30.0-34.9), History of type 2 diabetes mellitus, History of hypertension, History of hypercholesterolemia, History of pulmonary embolus (PE) Instructions: ED Chest Pain, Uncertain Cause Prescriptions: No Action calcitriol 0.5 MCG capsule 0.5 mcg PO DAILY Label Comments: gabapentin 300 MG capsule 300 mg PO QHS Label Comments: metformin 500 MG tablet 2,000 mg PO DAILY Label Comments: take 1 tablet by mouth twice a day with meals oxybutynin chloride 10 MG tablet extended release 24hr 10 mg PO DAILY PRN PRN (Reason: overactive bladder) lidocaine HCl 1 APPLIC jelly 1 applic TP TID calcium carbonate-vitamin D3 1 EACH tablet 1 ea PO TID acetaminophen 500 MG tablet 500 mg PO QHS ascorbic acid (vitamin C) 500 MG tablet 500 mg PO DAILY hydrocodone-acetaminophen 1 EACH tablet 1 ea PO 4X/DAY PRN PRN (Reason: Pain Or Fever) cyanocobalamin (vitamin B-12) 1,000 MCG/ML solution 1,000 mcg IM Q30D multivitamin with minerals 1 EACH tablet 1 ea PO DAILY clobetasol-emollient 15 GM cream 1 applic TP QHS biotin 2,500 MCG capsule 2,500 mcg PO DAILY cetirizine 10 MG capsule 10 mg PO DAILY rivaroxaban 15 MG tablet 15 mg PO BID Qty: 42 0RF apixaban 5 MG tablet 5 mg PO BID Qty: 74 0RF Rx Instructions: 10 mg twice a day for the first week. Then 5 mg twice a day. Primary Care Provider: Aria Helms Referrals: Aria Helms MD [Primary Care Provider] - 3-5 Days Disposition Disposition: Home, Self Care
[2022-02-16 17:43] VITALS: RESP 16
[2022-02-16 17:45] LABS: Absolute Lymphocyte Count 1.81 X10^3/uL (0.83-4.51); Absolute Neutrophil Count 6.2 X10^3/uL (2.0-7.7); Basophil# 0.06 X10^3/uL; Basophil% 0.7 % (0-1); Eosinophil# 0.13 X10^3/uL; Eosinophils% 1.4 % (0-5); Hematocrit 39.5 % (37-47); Hemoglobin 12.3 g/dL (12.0-15.0); Lymphocyte # 1.81 X10^3/ul (0.83-4.51); Lymphocyte % 19.8 % (19-41); Mean Corp Hgb Conc 31.1 g/dL (32-36); Mean Corpuscular Hgb 29.4 pg (27.0-32.0); Mean Corpuscular Volume 94.5 fL (81-99); Monocyte# 0.86 X10^3/uL; Monocyte% 9.4 % (0-10); NRBC Flagged by Analyzer 0 % (0-5); Platelet Count 317 K/mm3 (150-450); RBC Distribution Width SD 48.5 fl (35.1-43.9); Red Blood Count 4.18 M/mm3 (4.2-5.4); White Blood Count 9.1 K/mm3 (4.4-11.0)
[2022-02-16 17:55] LABS: Anion Gap 6 (5-15); BUN 14 mg/dL (7-18); BUN/Creat Ratio 21.1 RATIO (10-20); Calcium,Total 8.9 mg/dL (8.5-10.1); Chloride 109 mmol/L (98-107); Creatinine, Serum 0.66 mg/dL (0.55-1.02); EST Glomerular Filtration Rate 91 mL/min (>60); Est Glom Filt Rate - Afr Amer 110 mL/min (>60); Glucose 85 mg/dL (74-106); Sodium Level 141 mmol/L (136-145); Troponin-I HS 8 pg/mL (3.0-54.0)
--- NOTE | 2022-02-16 18:30 | ED.RN ---
patrick castaneda PB, apple juice given for glucose 64
[2022-02-16 18:35] LABS: Bedside Glucose 64 mg/dL (74-106)
[2022-02-16 18:43] VITALS: RESP 16
[2022-02-16 19:00] VITALS: RESP 16
[2022-02-16 20:00] VITALS: RESP 16
[2022-02-16 20:55] VITALS: RESP 16
== END 2022-02-16 20:55 | disposition home or self-care (01) ==
PROVIDERS: Emergency Provider Emergency Medicine; PCP Internal Medicine; Visit Provider Emergency Medicine
DX: R07.2 Precordial pain (principal); E11.9 Type 2 diabetes mellitus without complications; I10 Essential (primary) hypertension; R06.02 Shortness of breath; E66.9 Obesity, unspecified; D50.9 Iron deficiency anemia, unspecified; E78.00 Pure hypercholesterolemia, unspecified; Z79.84 Long term (current) use of oral hypoglycemic drugs
CPT/HCPCS: 71275; 80048; 82962; 84484; 85025; 93005; 99283; Q9967; A4216

== ENCOUNTER 2022-02-21 01:07 | Emergency (ER) | payer MEDICARE, SELFPAY ==
[2022-02-21 01:08] VITALS: BP 172/91; PULSE 88; RESP 13; TEMP 35.9; O2SAT 97; BMI 40.0
[2022-02-21 01:15] VITALS: BP 175/92; PULSE 94; RESP 22; O2SAT 96
--- NOTE | 2022-02-21 01:30 | CT_ITS ---
STUDY: CT CERVICAL SPINE WITHOUT CONTRAST REASON FOR EXAM: Female, 82 years old patient with neck injury. RADIATION DOSAGE (If Supplied By Facility): CTDIvol = ( 25.40 ) mGy, DLP = ( 451.92 ) mGycm TECHNIQUE: High resolution transaxial imaging was performed without contrast material. Sagittal and coronal images were reconstructed. Individualized dose optimization techniques were used for this CT. COMPARISON: None FINDINGS: Normal craniovertebral junction. There are degenerative changes of the anterior atlantoaxial articulation. Normal odontoid process. There is straightening of the normal cervical lordosis. Normal vertebral bodies and posterior osseous elements. C2-3: Normal endplates. Normal disc height and morphology. Normal central canal and intervertebral neuroforamina. There is degenerative arthropathy of the facet joints. C3-4: There is narrowing of the disc space. There is a severe right-sided neural foraminal narrowing and moderate left-sided neural foraminal narrowing with uncovertebral and facet joint arthropathy. There is mild central acquired canal stenosis. C4-5: There is narrowing of the disc space. There are small endplate osteophytes. There is moderate bilateral neural foraminal narrowing. There is hypertrophic right-sided facet joint arthropathy and bilateral uncovertebral joint hypertrophy. C5-6: Normal endplates. There is a disc bulge. There is severe right-sided neural foraminal narrowing with hypertrophic right-sided facet joint arthropathy. The left and all foramen is patent. There is mild central acquired canal stenosis. C6-7: There is narrowing of this disc space. There is a disc bulge and osteophyte complex. There is moderate bilateral neural foraminal narrowing with uncovertebral and facet joint arthropathy. There is mild central acquired canal stenosis. C7-T1: Normal endplates. Normal disc height and morphology. Normal central canal and intervertebral neuroforamina. There is evidence for calcification of the carotid bulbs. Paraspinal soft tissues are otherwise within normal limits. CT/Spine Cervical without Contras IMPRESSION: 1. No CT evidence of acute compression or displaced fracture. 2. Moderately severe multilevel degenerative disc disease and degenerative arthropathy of the cervical spine with neural foraminal narrowing and central acquired canal stenosis, as described. Electronically Signed: Trina Brothers MD at 2:38 EDT ,
--- NOTE | 2022-02-21 01:30 | CT_ITS ---
STUDY: CT BRAIN WITHOUT CONTRAST REASON FOR EXAM: Female, 82 years old patient with closed head injury. RADIATION DOSAGE (If Supplied By Facility): CTDIvol = ( 44.99 ) mGy, DLP = ( 880.47 ) mGycm TECHNIQUE: Transaxial CT imaging of the brain was performed without administration of intravenous contrast material. Multiplanar reformations are submitted for interpretation. Individualized dose optimization techniques were used for this CT. COMPARISON: No relevant priors. FINDINGS: Normal soft tissue structures. Normal calvarium. There is mild cerebral atrophy with widening of the extra-axial spaces and ventricular dilatation. There are areas of decreased attenuation within the white matter tracts of the supratentorial brain, consistent with microvascular disease changes. There are small punctate calcifications of the basal ganglia which are seen in the aging brain as a normal variant. Normal brainstem. There is mild cerebellar atrophy. There is no intracranial hemorrhage. There is mild atherosclerotic calcification of the intracranial arteries. Normal visualized paranasal sinuses. CT/Brain/Head without Contrast IMPRESSION: 1. Chronic involutional changes of the brain. 2. No CT evidence of acute intracranial hemorrhage. Electronically Signed: Trina Brothers MD at 2:31 EDT ,
--- NOTE | 2022-02-21 01:30 | RAD_ITS ---
STUDY: X-RAY - PELVIS REASON FOR EXAM: Female, 82 years old patient with pelvic injury after fall TECHNIQUE: One view of the pelvis was obtained. COMPARISON: Prior comparison studies are not available for review at this time. FINDINGS: There is a non-specific bowel gas pattern. There are multiple calcified phleboliths. There is diffuse demineralization of the osseous structures. The sacrum and iliac wings are obscured by bowel gas and/or stool. Normal visualized bilateral superior and inferior pubic rami. There is narrowing with sclerosis of the pubic symphysis. Normal ischial tuberosities. There are osteoarthritic changes of the right femoral head with marginal osteophyte formation. There is osteoarthritic spur formation of the right acetabular rim. There is mild articular joint space narrowing of the right hip. There are osteoarthritic changes of the left femoral head with marginal osteophyte formation. There is osteoarthritic spur formation of the left acetabular rim. There is mild articular joint space narrowing of the left hip. RAD/Pelvis 1 or 2 Views IMPRESSION: 1. No radiographic evidence for acute fracture or dislocation. 2. Degenerative arthropathy of both hips. Electronically Signed: Trina Brothers MD at 2:09 EDT ,
[2022-02-21] MEDS: Ondansetron ODT 4 MG Tablet PO (01:36)
--- NOTE | 2022-02-21 02:45 | EX.ED.DYSGE1 ---
HPI History of Present Illness Chief Complaint: Fall Narrative Narrative: Patient is an 82-year-old female with past medical history of hypertension hyperlipidemia and previous pulmonary emboli requiring the use of anticoagulation with Eliquis. Patient reports that around midnight she was trying to rearrange furniture. She states she was pulling on a recliner when her airport guide slipped and she fell backwards striking the back of her head on a table. She denies any loss of consciousness. However with her head trauma and blood thinner use she was advised that if she hits her head she should come to the hospital for evaluation and therefore presents at this time [facility] Home Medications calcitriol 0.5 mcg capsule 0.5 mcg PO DAILY 03/04/15 [History Last Taken Unknown] gabapentin 300 mg capsule 300 mg PO QHS 03/04/15 [History Last Taken Unknown] metformin 500 mg tablet,extended release 24 hr 2,000 mg PO DAILY 06/13/17 [History Last Taken Unknown] acetaminophen 500 mg tablet 500 mg PO QHS 03/31/19 [History Last Taken Unknown] ascorbic acid (vitamin C) 500 mg tablet 500 mg PO DAILY 03/31/19 [History Last Taken Unknown] biotin 2,500 mcg capsule 2,500 mcg PO DAILY 03/31/19 [History Last Taken Unknown] calcium carbonate 600 mg-vitamin D3 5 mcg (200 unit) tablet 1 ea PO TID 03/31/19 [History Last Taken Unknown] cetirizine 10 mg capsule 10 mg PO DAILY 03/31/19 [History Last Taken Unknown] clobetasol-emollient 0.05 % topical cream 1 applic TP QHS 03/31/19 [History Last Taken Unknown] cyanocobalamin (vitamin B-12) 1,000 mcg/mL injection solution 1,000 mcg IM Q30D 03/31/19 [History Last Taken Unknown] hydrocodone 7.5 mg-acetaminophen 325 mg tablet 1 ea PO 4X/DAY PRN PRN Pain Or Fever 03/31/19 [History Last Taken Unknown] lidocaine HCl 2 % mucosal jelly 1 applic TP TID 03/31/19 [History Last Taken Unknown] multivitamin with minerals 1 ea PO DAILY 03/31/19 [History Last Taken Unknown] oxybutynin chloride 10 mg tablet,extended release 24 hr 10 mg PO DAILY PRN PRN overactive bladder 03/31/19 [History Last Taken Unknown] rivaroxaban 15 mg tablet 15 mg PO BID #42 tabs 03/31/19 [Rx Last Taken Unknown] apixaban 5 mg tablet 5 mg PO BID #74 tabs 08/27/20 [Rx Last Taken Unknown] Allergy/AdvReac Type Severity Reaction Status Date / Time adhesive Allergy Rash Verified 02/21/22 01:10 aspirin [ASA] Allergy Anaphylaxis Verified 02/21/22 01:10 atorvastatin [From Lipitor] Allergy Unknown Verified 02/21/22 01:10 exenatide [From Byetta] Allergy Unknown Verified 02/21/22 01:10 ezetimibe [From Zetia] Allergy Rash Verified 02/21/22 01:10 irbesartan [From Avapro] Allergy Swelling Verified 02/21/22 01:10 niacin Allergy Unknown Verified 02/21/22 01:10 Penicillins Allergy Rash Verified 02/21/22 01:10 pravastatin Allergy Rash Verified 02/21/22 01:10 rosuvastatin [From Crestor] Allergy Unknown Verified 02/21/22 01:10 simvastatin [From Zocor] Allergy Rash Verified 02/21/22 01:10 Rivmkhk-YJR-RcG Reductase Allergy Other Verified 02/21/22 01:10 Inhibitor [Xplbqbq-Uxo-Kps Reductase Inhibitor] erythromycin base AdvReac Other Verified 02/21/22 01:10 etodolac AdvReac Unknown Verified 02/21/22 01:10 metformin AdvReac Diarrhea Verified 02/21/22 01:10 NSAIDS (Non-Steroidal AdvReac Other Verified 02/21/22 01:10 Anti-Inflamma Sulfa (Sulfonamide AdvReac Rash Verified 02/21/22 01:10 Antibiotics) duoderm Allergy Rash Uncoded 02/21/22 01:10 ointments Allergy Rash Uncoded 02/21/22 01:10 eggs AdvReac Diarrhea Uncoded 02/21/22 01:10 Social History (Updated 02/16/22 @ 17:[address] Darrell Morris MD) household members: spouse Smoking Status: Never smoker substance use type: does not use ROS ROS ED Constitutional Constitutional ED: Denies chills or fever(s) Eyes Eyes: Denies change in vision ENT ENT ED: Denies sore throat Cardiovascular Cardiovascular: Denies chest pain Respiratory/Chest Respiratory/Chest: Denies cough or dyspnea Gastrointestinal Gastrointestinal: Reports nausea; Denies abdominal pain, diarrhea or vomiting Genitourinary Genitourinary ED: Denies dysuria Musculoskeletal Musculoskeletal: Reports neck pain; Denies back pain or myalgias Integumentary Reports other Details: Positive scalp laceration ; Denies rash Neurologic Neurologic: Reports headache(s); Denies paresthesias or weakness Hematologic/Lymphatic Hematologic/Lymphatic: Reports easy bleeding and easy bruising EXAM Physical Exam Const Vital Signs: 02/21/22 01:08 02/21/22 01:15 02/21/22 01:17 Temperature 96.7 F L Temperature Source Temporal Pulse Rate 88 94 Respiratory Rate 13 22 H Respiratory Effort Normal Respiratory Depth Normal Respiratory Pattern Normal Blood Pressure 172/91 H 175/92 H Blood Pressure Mean 118 119 Pulse Ox 97 96 Oxygen Delivery Method Room Air Room Air Room Air 02/21/22 02:46 Temperature Temperature Source Pulse Rate 75 Respiratory Rate Respiratory Effort Respiratory Depth Respiratory Pattern Blood Pressure 94/73 Blood Pressure Mean Pulse Ox 97 Oxygen Delivery Method Positive well nourished, well developed and obese General Appearance ED: well developed Nutritional Appearance: obese HEENT HEENT Narrative: Patient has a linear 1.5 cm dermal layer laceration to the left occipital portion of the scalp. No active bleeding is noted. There is a small 2 x 2 centimeter area of hematoma present around the laceration consistent with head trauma. No signs of depressed or basilar skull fracture Eyes PERRL and EOMs intact bilaterally Neck supple Neck Narrative: No bony deformity or step-off of the cervical spine but there is lower midline pain on palpation Chest Wall palpation of chest normal Chest Narrative: No bony deformity or crepitance of the chest wall Resp normal respiratory effort and clear to auscultation bilaterally Cardio regular rate and regular rhythm GI normal to inspection, nondistended, normoactive bowel sounds, non-tender and non-distended GI Narrative: Bone check guarding or rigidity no pulsatile mass or fluid wave Auscultation: normoactive bowel sounds Palpation: soft Back/Spine Back/Spine Narrative: No bony deformity or step-off of the thoracic or lumbar spine no midline pain with palpation Extremity normal to inspection Extremity Narrative: Pelvis is stable there is no shortening or external rotation of either lower extremity Neuro oriented x3 and CN's II-XII intact bilaterally Sensorium / Orientation: alert Psych mental status grossly normal Skin Skin Narrative: Hematoma and scalp laceration as documented above MDM MDM MDM Narrative Medical decision making narrative: Patient presented to the ER with report of mechanical fall so I felt no need for cardiac or syncope work-up. With her head trauma and blood thinner use there is concern for underlying skull fracture/brain bleed so CTs of the head and cervical spine were obtained. These revealed no acute traumatic finding. The patient had a stable pelvis and no shortening or rotation of her extremities but with the fall there is always concern for a pubic rami or pelvic fracture so I did elect to perform a 1 view pelvis x-ray. This also revealed no acute traumatic finding. The patient had her wound closed with Dermabond as documented below. Following this as her images reveal no signs of acute trauma she has a normal neurologic exam she is otherwise safe for discharge. Patient had her scalp laceration cleaned with chlorhexidine. Manual pressure was then applied to the wound edges and Dermabond was placed over top of the laceration. This held the wound together good approximation. Patient tolerated the procedure well without complication Radiography Diagnostic Testing: Clinical Impression(s) from Imaging Studies Brain CT 02/21/22 01:30 IMPRESSION: 1. Chronic involutional changes of the brain. 2. No CT evidence of acute intracranial hemorrhage. Electronically Signed: Trina Brothers MD at 2:31 EDT , Cervical Spine CT 02/21/22 01:[address]: [address] evidence of acute compression or displaced fracture. 2. Moderately severe multilevel degenerative disc disease and degenerative arthropathy of the cervical spine with neural foraminal narrowing and central acquired canal stenosis, as described. Electronically Signed: Trina Brothers MD at 2:38 EDT , Pelvis X-Ray 02/21/22 01:30 IMPRESSION: 1. No radiographic evidence for acute fracture or dislocation. 2. Degenerative arthropathy of both hips. Electronically Signed: Trina Brothers MD at 2:09 EDT Reading Location ID and State: [id number] / [employer] , Service support , 1 view pelvis x-ray as interpreted by the emergency medicine physician reveals degenerative changes without acute fracture or dislocation Discharge Plan Triage Chief Complaint: Fall ED Provider: Ruben Rico Dx/Rx/DC Orders Clinical Impression: Closed head injury, Laceration of scalp, Accidental fall, Current use of prison anticoagulation Instructions: ED Head Injury (Adult), ED Laceration: Skin Adhesive Prescriptions: No Action calcitriol 0.5 MCG capsule 0.5 mcg PO DAILY Label Comments: gabapentin 300 MG capsule 300 mg PO QHS Label Comments: metformin 500 MG tablet 2,000 mg PO DAILY Label Comments: take 1 tablet by mouth twice a day with meals oxybutynin chloride 10 MG tablet extended release 24hr 10 mg PO DAILY PRN PRN (Reason: overactive bladder) lidocaine HCl 1 APPLIC jelly 1 applic TP TID calcium carbonate-vitamin D3 1 EACH tablet 1 ea PO TID acetaminophen 500 MG tablet 500 mg PO QHS ascorbic acid (vitamin C) 500 MG tablet 500 mg PO DAILY hydrocodone-acetaminophen 1 EACH tablet 1 ea PO 4X/DAY PRN PRN (Reason: Pain Or Fever) cyanocobalamin (vitamin B-12) 1,000 MCG/ML solution 1,000 mcg IM Q30D multivitamin with minerals 1 EACH tablet 1 ea PO DAILY clobetasol-emollient 15 GM cream 1 applic TP QHS biotin 2,500 MCG capsule 2,500 mcg PO DAILY cetirizine 10 MG capsule 10 mg PO DAILY rivaroxaban 15 MG tablet 15 mg PO BID Qty: 42 0RF apixaban 5 MG tablet 5 mg PO BID Qty: 74 0RF Rx Instructions: 10 mg twice a day for the first week. Then 5 mg twice a day. Primary Care Provider: Aria Helms Referrals: Aria Helms MD [Primary Care Provider] - Activity Restrictions/Additional Instructions: The Dermabond/skin adhesive will fall off on its own in approximately 10 days. You can continue to shower and wash your hair as normal. Please return to the ER should you have any further concerns Disposition Disposition: Home, Self Care Discharge Date/Time: 02/21/22 02:50
[2022-02-21 02:46] VITALS: BP 94/73; PULSE 75; O2SAT 97
== END 2022-02-21 02:50 | disposition home or self-care (01) ==
PROVIDERS: Emergency Provider Emergency Medicine; PCP Internal Medicine; Visit Provider Emergency Medicine
DX: S01.01XA Laceration without foreign body of scalp, initial encounter (principal); Z79.01 Long term (current) use of anticoagulants; I10 Essential (primary) hypertension; E78.5 Hyperlipidemia, unspecified; Z86.711 Personal history of pulmonary embolism; W01.0XXA Fall on same level from slipping, tripping and stumbling without subsequent striking against object, initial encounter
CPT/HCPCS: 12001; 70450; 72125; 72170; 99282

== ENCOUNTER 2022-02-28 05:35 | Emergency (ER) | payer MEDICARE, SELFPAY ==
[2022-02-28 05:36] VITALS: BP 160/125; PULSE 98; RESP 17; TEMP 37; O2SAT 97; BMI 39.8
[2022-02-28 05:39] VITALS: BP 160/125; RESP 17; O2SAT 97
--- NOTE | 2022-02-28 05:52 | CT_ITS ---
EXAM: CT ABDOMEN AND PELVIS WITH INTRAVENOUS CONTRAST CLINICAL INDICATION: abd pain TECHNIQUE: Helically acquired images were obtained of the abdomen and pelvis with intravenous contrast. This CT exam was performed using one or more of the following dose reduction techniques: automated exposure control, adjustment of the mA and/or kV according to patient size, and/or use of iterative reconstruction technique. This report was created using [employer] report generation technology. CONTRAST: IV 100mL Isovue-370 COMPARISON: None. FINDINGS: LOWER THORAX: Unremarkable. Lung bases are clear. No cardiomegaly. No significant pericardial effusion. ABDOMEN: LIVER: Unremarkable. Homogeneous. No focal mass. GALLBLADDER AND BILE DUCTS: Small gallstones. No gallbladder distention or wall edema. No intra- or extrahepatic biliary ductal dilation. PANCREAS: Unremarkable. No focal cystic or solid mass. SPLEEN: Unremarkable. Normal size without focal cystic or solid mass. ADRENALS: Unremarkable. No nodules. KIDNEYS AND URETERS: There is a 1.7 cm stone in the left renal pelvis, which may be causing intermittent obstruction at the ureteropelvic junction, as there is mild left hydronephrosis. STOMACH AND BOWEL: Gastric bypass changes. Surgical changes of the proximal colon. Diverticular disease of the colon but no diverticulitis. No stomach or bowel distention. PELVIS: APPENDIX: No evidence of acute appendicitis. BLADDER: Unremarkable. REPRODUCTIVE: Unremarkable as visualized. No mass. ABDOMEN and PELVIS: INTRAPERITONEAL SPACE: Unremarkable. No ascites or other fluid collection. No free air. BONES/JOINTS: Degenerative changes of the spine. No suspicious lytic or blastic abnormality. SOFT TISSUES: Unremarkable. No discrete abdominal or pelvic wall hernia. VASCULATURE: Moderate atherosclerotic changes of the abdominal aorta without aneurysm. LYMPH NODES: Unremarkable. No enlarged lymph nodes. CT/Abdomen/Pelvis W IV Cont ONLY IMPRESSION: 1. There is a 1.7 cm stone in the left renal pelvis, which may be causing intermittent obstruction at the ureteropelvic junction, as there is mild left hydronephrosis. 2. Cholelithiasis. Electronically Signed: Raj Moody MD at 7:31 EDT ,
[2022-02-28] MEDS: Morphine 4 MG/ML Syringe IV (06:02)
[2022-02-28] MEDS: Ondansetron 4 MG/2 ML Vial IV (06:02)
[2022-02-28 06:14] LABS: Absolute Lymphocyte Count 1.71 X10^3/uL (0.83-4.51); Absolute Neutrophil Count 9.1 X10^3/uL (2.0-7.7); Basophil# 0.07 X10^3/uL; Basophil% 0.6 % (0-1); Eosinophil# 0.11 X10^3/uL; Eosinophils% 0.9 % (0-5); Hematocrit 46.1 % (37-47); Hemoglobin 14.7 g/dL (12.0-15.0); Lymphocyte # 1.71 X10^3/ul (0.83-4.51); Lymphocyte % 14.1 % (19-41); Mean Corp Hgb Conc 31.9 g/dL (32-36); Mean Corpuscular Hgb 30.5 pg (27.0-32.0); Mean Corpuscular Volume 95.6 fL (81-99); Monocyte# 1.11 X10^3/uL; Monocyte% 9.1 % (0-10); NRBC Flagged by Analyzer 0 % (0-5); Neutrophil # 9.11 X10^3/uL (2.7-7.7); Neutrophil % 74.8 % (47-70); Platelet Count 311 K/mm3 (150-450); RBC Distribution Width CV 13.9 % (11.6-14.6); Red Blood Count 4.82 M/mm3 (4.2-5.4); White Blood Count 12.2 K/mm3 (4.4-11.0)
[2022-02-28 06:25] LABS: AST(SGOT) 9 U/L (15-37); Alanine Aminotransfer ALT/SGPT 15 U/L (13-56); Albumin, Serum 2.9 g/dL (3.2-5.0); Alkaline Phosphatase 115 U/L (45-117); Anion Gap 7 (5-15); BUN 16 mg/dL (7-18); BUN/Creat Ratio 21.1 RATIO (10-20); Bilirubin, Direct 0.09 mg/dL (0.00-0.30); Calcium,Total 9.2 mg/dL (8.5-10.1); Chloride 103 mmol/L (98-107); Creatinine, Serum 0.76 mg/dL (0.55-1.02); EST Glomerular Filtration Rate 78 mL/min (>60); Est Glom Filt Rate - Afr Amer 94 mL/min (>60); Globulin 4.8 g/dL (2.2-4.2); Glucose 151 mg/dL (74-106); Lipase 74 U/L (73-393); Potassium 3.9 mmol/L (3.5-5.1); Protein, Total 7.7 g/dL (6.4-8.2); Sodium Level 139 mmol/L (136-145)
--- NOTE | 2022-02-28 07:09 | EX.ED.DYSGE1 ---
HPI History of Present Illness Chief Complaint: Abd Pain Narrative Narrative: Patient is a 82-year-old female with past medical history of type 2 diabetes hypertension and hyperlipidemia as well as previous pulmonary embolus currently on Eliquis. Patient states she went to bed as she normally would but then awoke around midnight with pain in the left-sided abdomen. She states that she tried to have a bowel movement she drank some water and there is no improvement and as time passed she feels the pain has intensified and has not responded to any clxn-fkl-[id number] medication either and therefore she comes in for evaluation. PFSH PFS Home Medications calcitriol 0.5 mcg capsule 0.5 mcg PO DAILY 03/04/15 [History Last Taken Unknown] gabapentin 300 mg capsule 300 mg PO QHS 03/04/15 [History Last Taken Unknown] metformin 500 mg tablet,extended release 24 hr 2,000 mg PO DAILY 06/13/17 [History Last Taken Unknown] acetaminophen 500 mg tablet 500 mg PO QHS 03/31/19 [History Last Taken Unknown] ascorbic acid (vitamin C) 500 mg tablet 500 mg PO DAILY 03/31/19 [History Last Taken Unknown] biotin 2,500 mcg capsule 2,500 mcg PO DAILY 03/31/19 [History Last Taken Unknown] calcium carbonate 600 mg-vitamin D3 5 mcg (200 unit) tablet 1 ea PO TID 03/31/19 [History Last Taken Unknown] cetirizine 10 mg capsule 10 mg PO DAILY 03/31/19 [History Last Taken Unknown] clobetasol-emollient 0.05 % topical cream 1 applic TP QHS 03/31/19 [History Last Taken Unknown] cyanocobalamin (vitamin B-12) 1,000 mcg/mL injection solution 1,000 mcg IM Q30D 03/31/19 [History Last Taken Unknown] hydrocodone 7.5 mg-acetaminophen 325 mg tablet 1 ea PO 4X/DAY PRN PRN Pain Or Fever 03/31/19 [History Last Taken Unknown] lidocaine HCl 2 % mucosal jelly 1 applic TP TID 03/31/19 [History Last Taken Unknown] multivitamin with minerals 1 ea PO DAILY 03/31/19 [History Last Taken Unknown] oxybutynin chloride 10 mg tablet,extended release 24 hr 10 mg PO DAILY PRN PRN overactive bladder 03/31/19 [History Last Taken Unknown] rivaroxaban 15 mg tablet 15 mg PO BID #42 tabs 03/31/19 [Rx Last Taken Unknown] apixaban 5 mg tablet 5 mg PO BID #74 tabs 08/27/20 [Rx Last Taken Unknown] morphine 15 mg tablet,extended release (MS Contin) 15 mg PO TID PRN PRN pain 5 days #15 tabs 02/28/22 [Rx Last Taken Unknown] ondansetron 4 mg disintegrating tablet 4 mg PO TID PRN PRN nausea and vomiting #21 tabs 02/28/22 [Rx Last Taken Unknown] tamsulosin 0.4 mg capsule (Flomax) 0.4 mg PO DAILY 14 days #14 caps 02/28/22 [Rx Last Taken Unknown] Allergy/AdvReac Type Severity Reaction Status Date / Time adhesive Allergy Rash Verified 02/21/22 01:10 aspirin [ASA] Allergy Anaphylaxis Verified 02/21/22 01:10 atorvastatin [From Lipitor] Allergy Unknown Verified 02/21/22 01:10 exenatide [From Byetta] Allergy Unknown Verified 02/21/22 01:10 ezetimibe [From Zetia] Allergy Rash Verified 02/21/22 01:10 irbesartan [From Avapro] Allergy Swelling Verified 02/21/22 01:10 niacin Allergy Unknown Verified 02/21/22 01:10 Penicillins Allergy Rash Verified 02/21/22 01:10 pravastatin Allergy Rash Verified 02/21/22 01:10 rosuvastatin [From Crestor] Allergy Unknown Verified 02/21/22 01:10 simvastatin [From Zocor] Allergy Rash Verified 02/21/22 01:10 Mcszsvh-UNP-WvW Reductase Allergy Other Verified 02/21/22 01:10 Inhibitor [Aqbdnda-Rpp-Yjg Reductase Inhibitor] erythromycin base AdvReac Other Verified 02/21/22 01:10 etodolac AdvReac Unknown Verified 02/21/22 01:10 metformin AdvReac Diarrhea Verified 02/21/22 01:10 NSAIDS (Non-Steroidal AdvReac Other Verified 02/21/22 01:10 Anti-Inflamma Sulfa (Sulfonamide AdvReac Rash Verified 02/21/22 01:10 Antibiotics) duoderm Allergy Rash Uncoded 02/21/22 01:10 ointments Allergy Rash Uncoded 02/21/22 01:10 eggs AdvReac Diarrhea Uncoded 02/21/22 01:10 Social History (Updated 02/16/22 @ 17:[address] Darrell Morris MD) household members: spouse Smoking Status: Never smoker substance use type: does not use ROS ROS ED Constitutional Constitutional ED: Denies chills or fever(s) ENT ENT ED: Denies sore throat Cardiovascular Cardiovascular: Denies chest pain Respiratory/Chest Respiratory/Chest: Denies cough or dyspnea Gastrointestinal Gastrointestinal: Reports abdominal pain; Denies constipation, diarrhea, nausea or vomiting Genitourinary Genitourinary ED: Denies dysuria or hematuria Musculoskeletal Musculoskeletal: Denies back pain or myalgias Integumentary Denies rash Neurologic Neurologic: Denies headache(s) Hematologic/Lymphatic Hematologic/Lymphatic: Reports easy bleeding and easy bruising EXAM Physical Exam Const Vital Signs: 02/28/22 05:36 02/28/22 05:39 Temperature 98.6 F Temperature Source Temporal Pulse Rate 98 Respiratory Rate 17 17 Blood Pressure 160/125 H 160/125 H Blood Pressure Mean 136 136 Pulse Ox 97 97 Oxygen Delivery Method Room Air Room Air Positive well nourished and well developed General Appearance ED: well developed Eyes PERRL and EOMs intact bilaterally Neck supple Resp normal respiratory effort and clear to auscultation bilaterally Cardio regular rate and regular rhythm Rate: other Other Details: Radial pulses are plus 2 out of 4 bilaterally they are equal and symmetric Carotid pulses are equal as well GI non-distended GI Narrative: Abdomen is obese soft and nondistended with normoactive bowel sounds. There is pain with palpation in the left lower to mid abdominal region with voluntary guarding but no fluid wave or pulsatile mass Auscultation: normoactive bowel sounds Palpation: soft Back/Spine no CVA tenderness Extremity normal to inspection Neuro oriented x3 and CN's II-XII intact bilaterally Sensorium / Orientation: alert Psych mental status grossly normal Skin no rashes or lesions noted General Skin Exam: Negative for jaundice MDM MDM MDM Narrative Medical decision making narrative: Patient presented with sudden onset pain in the left side of abdomen. However she was not guarding or rigid there was no pulsatile mass and therefore I did have concern that this was most likely kidney stone but based on her advanced age and medical comorbidities elected to perform a CT with IV contrast. CT showed a 1.7 cm stone in the renal pelvis with hydronephrosis which would be consistent with her presentation. At this time after 4 mg of morphine the patient's pain has resolved and she has no signs of urosepsis or acute kidney injury. Therefore I do not feel there is need for admission. Patient will be placed on pain medication and Flomax and she will follow-up with urology to discuss further care and will return to the ER if her pain is not controlled with outpatient therapy. Lab Data Attestation: I reviewed the patient's lab results. Labs: Laboratory Results - last 24 hr 02/28/22 02/28/22 02/28/22 05:45 05:45 07:23 WBC 12.2 H RBC 4.82 Hgb 14.7 Hct 46.1 MCV 95.6 MCH 30.5 MCHC 31.9 L RDW Std Deviation 49.0 H RDW Coeff of Gail 13.9 Plt Count 311 MPV 11.0 Immature Gran % (Auto) 0.500 Neut % (Auto) 74.8 H Lymph % (Auto) 14.1 L Hamblen % (Auto) 9.1 Eos % (Auto) 0.9 Baso % (Auto) 0.6 Absolute Neuts (auto) 9.1 H Absolute Lymphs (auto) 1.71 Nucleated RBC % 0 Sodium 139 Potassium 3.9 Chloride 103 Carbon Dioxide 29.0 Anion Gap 7 BUN 16 Creatinine 0.76 Estim Creat Clear Calc 42.00 Est GFR (MDRD) Af Amer 94 Est GFR (MDRD) Non-Af 78 BUN/Creatinine Ratio 21.1 H Glucose 151 H Calcium 9.2 Total Bilirubin 0.40 Direct Bilirubin 0.09 AST 9 L ALT 15 Alkaline Phosphatase 115 Total Protein 7.7 Albumin 2.9 L Globulin 4.8 H Lipase 74 POC Glucose 146 H Radiography Diagnostic Testing: Clinical Impression(s) from Imaging Studies Abdomen/Pelvis CT 02/28/22 05:52 IMPRESSION: 1. There is a 1.7 cm stone in the left renal pelvis, which may be causing intermittent obstruction at the ureteropelvic junction, as there is mild left hydronephrosis. 2. Cholelithiasis. 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, Diabetes mellitus, type 2 Instructions: ED Kidney Stone w/ Colic Prescriptions: New tamsulosin [Flomax] 0.4 mg capsule 0.4 mg PO DAILY 14 Days Qty: 14 0RF morphine [MS Contin] 15 mg tablet extended release 15 mg PO TID PRN PRN (Reason: pain) 5 Days Qty: 15 0RF ondansetron 4 mg tablet,disintegrating 4 mg PO TID PRN PRN (Reason: nausea and vomiting) Qty: 21 0RF No Action calcitriol 0.5 MCG capsule 0.5 mcg PO DAILY Label Comments: gabapentin 300 MG capsule 300 mg PO QHS Label Comments: metformin 500 MG tablet 2,000 mg PO DAILY Label Comments: take 1 tablet by mouth twice a day with meals oxybutynin chloride 10 MG tablet extended release 24hr 10 mg PO DAILY PRN PRN (Reason: overactive bladder) lidocaine HCl 1 APPLIC jelly 1 applic TP TID calcium carbonate-vitamin D3 1 EACH tablet 1 ea PO TID acetaminophen 500 MG tablet 500 mg PO QHS ascorbic acid (vitamin C) 500 MG tablet 500 mg PO DAILY hydrocodone-acetaminophen 1 EACH tablet 1 ea PO 4X/DAY PRN PRN (Reason: Pain Or Fever) cyanocobalamin (vitamin B-12) 1,000 MCG/ML solution 1,000 mcg IM Q30D multivitamin with minerals 1 EACH tablet 1 ea PO DAILY clobetasol-emollient 15 GM cream 1 applic TP QHS biotin 2,500 MCG capsule 2,500 mcg PO DAILY cetirizine 10 MG capsule 10 mg PO DAILY rivaroxaban 15 MG tablet 15 mg PO BID Qty: 42 0RF apixaban 5 MG tablet 5 mg PO BID Qty: 74 0RF Rx Instructions: 10 mg twice a day for the first week. Then 5 mg twice a day. Primary Care Provider: Aria Helms Referrals: Ginger Moeller MD [Med Staff - Active Staff] - 5-7 Days Aria Helms MD [Primary Care Provider] - Activity Restrictions/Additional Instructions: Please follow-up with urology for repeat evaluation and return to the ER if your pain is not controlled with outpatient therapy or you develop a fever over 100.4 Disposition Disposition: Home, Self Care
[2022-02-28 07:45] LABS: Bedside Glucose 146 mg/dL (74-106)
[2022-02-28 08:37] VITALS: BP 143/83; PULSE 75; RESP 18; O2SAT 95
== END 2022-02-28 08:39 | disposition home or self-care (01) ==
PROVIDERS: Emergency Provider Emergency Medicine; PCP Internal Medicine; Visit Provider Emergency Medicine
DX: N13.2 Hydronephrosis with renal and ureteral calculous obstruction (principal); E11.9 Type 2 diabetes mellitus without complications; N23 Unspecified renal colic; E78.5 Hyperlipidemia, unspecified; I10 Essential (primary) hypertension; Z79.01 Long term (current) use of anticoagulants; Z86.711 Personal history of pulmonary embolism; Z79.84 Long term (current) use of oral hypoglycemic drugs
CPT/HCPCS: 74177; 80048; 80076; 82962; 83690; 85025; 96361; 96374; 96375; 99283; J7030; Q9967; A4216; J2405

== ENCOUNTER 2022-05-21 09:06 | Emergency (ER) | payer MEDICARE, SELFPAY ==
[2022-05-21 09:07] VITALS: BP 129/73; PULSE 80; RESP 18; TEMP 36.1; O2SAT 97; BMI 39.5
[2022-05-21] MEDS: morphine 8 MG/ML Syringe IV (09:37)
[2022-05-21] MEDS: Ondansetron 4 MG/2 ML Vial IV ×2 (09:37→10:37)
--- NOTE | 2022-05-21 10:29 | EDS_ITS ---
HPI HPI - GI History of Present Illness Chief Complaint: Flank Pain Informant: patient Abdominal Pain/Flank Pain Onset: Hours (4) Context: Gradual Onset Timing: Continuous Quality: Aching Location: LLQ and Left Flank Current Severity: Severe Maximum Severity: Severe Worsened by: Nothing Relieved by: Nothing Nausea/Vomiting/Emesis GI Symptom: Positive for Nausea; Negative for Vomiting Diarrhea/Melena/Hematochezia GI Symptom: Negative for Diarrhea, Melena or Hematochezia Associated Symptoms Associated Symptoms: Negative for Dysuria, Frequency or Hematuria Narrative Narrative: 82-year-old female presenting with cute onset of left flank pain that started this morning, same symptoms that she had at the beginning of February when she was seen here and diagnosed with a 1.7 cm left renal pelvic stone that appeared to be intermittently obstructing and causing hydronephrosis. She states she has not had any pain ever since, but she did see urology at [facility] and is scheduled to have surgery in 1 week, she states that she was supposed to have s urgery 2 weeks ago but it had to be canceled because she had an infection that they picked up on a urinalysis, she has been on an unknown antibiotic that she takes twice daily, has been on it for the past 10 days, she has 2 doses left. She has had no urinary symptoms including today after the symptoms/pain started. She denies any fevers or hematuria. Pain does radiate into her left low back. [facility] Medical History Diabetes HTN (hypertension) Pulmonary emboli Home Medications calcitriol 0.5 mcg capsule 0.5 mcg PO DAILY 03/04/15 [History Last Taken Unknown] gabapentin 300 mg capsule 300 mg PO QHS 03/04/15 [History Last Taken Unknown] metformin 500 mg tablet,extended release 24 hr 2,000 mg PO DAILY 06/13/17 [History Last Taken Unknown] acetaminophen 500 mg tablet 500 mg PO QHS 03/31/19 [History Last Taken Unknown] ascorbic acid (vitamin C) 500 mg tablet 500 mg PO DAILY 03/31/19 [History Last Taken Unknown] biotin 2,500 mcg capsule 2,500 mcg PO DAILY 03/31/19 [History Last Taken Unknown] calcium carbonate 600 mg-vitamin D3 5 mcg (200 unit) tablet 1 ea PO TID 03/31/19 [History Last Taken Unknown] cetirizine 10 mg capsule 10 mg PO DAILY 03/31/19 [History Last Taken Unknown] clobetasol-emollient 0.05 % topical cream 1 applic TP QHS 03/31/19 [History Last Taken Unknown] cyanocobalamin (vitamin B-12) 1,000 mcg/mL injection solution 1,000 mcg IM Q30D 03/31/19 [History Last Taken Unknown] hydrocodone 7.5 mg-acetaminophen 325 mg tablet 1 ea PO 4X/DAY PRN PRN Pain Or Fever 03/31/19 [History Last Taken Unknown] lidocaine HCl 2 % mucosal jelly 1 applic TP TID 03/31/19 [History Last Taken Unknown] multivitamin with minerals 1 ea PO DAILY 03/31/19 [History Last Taken Unknown] oxybutynin chloride 10 mg tablet,extended release 24 hr 10 mg PO DAILY PRN PRN overactive bladder 03/31/19 [History Last Taken Unknown] rivaroxaban 15 mg tablet 15 mg PO BID #42 tabs 03/31/19 [Rx Last Taken Unknown] apixaban 5 mg tablet 5 mg PO BID #74 tabs 08/27/20 [Rx Last Taken Unknown] morphine 15 mg tablet,extended release (MS Contin) 15 mg PO TID PRN PRN pain 5 days #15 tabs 02/28/22 [Rx Last Taken Unknown] ondansetron 4 mg disintegrating tablet 4 mg PO TID PRN PRN nausea and vomiting #21 tabs 02/28/22 [Rx Last Taken Unknown] tamsulosin 0.4 mg capsule (Flomax) 0.4 mg PO DAILY 14 days #14 caps 02/28/22 [Rx Last Taken Unknown] ciprofloxacin HCl 500 mg tablet 500 mg PO BID #20 TABLETS 05/21/22 [Rx Last Taken Unknown] hydrocodone-acetaminophen 5-325mg 5mg-325mg 1 tab PO Q4H PRN PRN Pain 3 days #15 TABLETS 05/21/22 [Rx Last Taken Unknown] Allergy/AdvReac Type Severity Reaction Status Date / Time adhesive Allergy Rash Verified 05/21/22 09:06 aspirin [ASA] Allergy Anaphylaxis Verified 05/21/22 09:06 atorvastatin [From Lipitor] Allergy Unknown Verified 05/21/22 09:06 exenatide [From Byetta] Allergy Unknown Verified 05/21/22 09:06 ezetimibe [From Zetia] Allergy Rash Verified 05/21/22 09:06 irbesartan [From Avapro] Allergy Swelling Verified 05/21/22 09:06 niacin Allergy Unknown Verified 05/21/22 09:06 Penicillins Allergy Rash Verified 05/21/22 09:06 pravastatin Allergy Rash Verified 05/21/22 09:06 rosuvastatin [From Crestor] Allergy Unknown Verified 05/21/22 09:06 simvastatin [From Zocor] Allergy Rash Verified 05/21/22 09:06 [id number]-UtG Reductase Allergy Other Verified 05/21/22 09:06 Inhibitor [Mfxcuoj-Bgs-Dck Reductase Inhibitor] egg AdvReac Diarrhea Verified 05/21/22 09:06 erythromycin base AdvReac Other Verified 05/21/22 09:06 etodolac AdvReac Unknown Verified 05/21/22 09:06 metformin AdvReac Diarrhea Verified 05/21/22 09:06 NSAIDS (Non-Steroidal AdvReac Other Verified 05/21/22 09:06 Anti-Inflamma Sulfa (Sulfonamide AdvReac Rash Verified 05/21/22 09:06 Antibiotics) duoderm Allergy Rash Uncoded 05/21/22 09:06 ointments Allergy Rash Uncoded 05/21/22 09:06 Social History household members: spouse Smoking Status: Never smoker substance use type: does not use ROS ROS ED Constitutional Constitutional ED: Denies chills or fever(s) Eyes Eyes: Denies change in vision or diplopia ENT ENT ED: Denies rhinorrhea or sore throat Cardiovascular Cardiovascular: Denies chest pain or palpitations Respiratory/Chest Respiratory/Chest: Denies cough or dyspnea Gastrointestinal Gastrointestinal: Reports abdominal pain and nausea; Denies diarrhea or vomiting Genitourinary Genitourinary ED: Reports flank pain; Denies dysuria or hematuria Musculoskeletal Musculoskeletal: Reports back pain; Denies neck pain Integumentary Denies abscess or rash Neurologic Neurologic: Denies headache(s), paresthesias or weakness Psychiatric Psychiatric: Denies anxiety or suicidal thoughts EXAM Physical Exam Const Vital Signs: 05/21/22 09:07 05/21/22 09:22 05/21/22 10:36 Temperature 96.9 F L Temperature Source Temporal Pulse Rate 80 93 Respiratory Rate 18 18 Respiratory Pattern Normal Blood Pressure 129/73 H 139/79 H Blood Pressure Mean 91 99 Pulse Ox 97 92 Oxygen Delivery Method Room Air 05/21/22 11:47 05/21/22 11:59 05/21/22 13:04 Temperature Temperature Source Pulse Rate 91 98 Respiratory Rate 16 18 16 Respiratory Pattern Blood Pressure 167/88 H 191/81 H Blood Pressure Mean 114 117 Pulse Ox 95 94 94 Oxygen Delivery Method Room Air Room Air Room Air 05/21/22 14:13 Temperature Temperature Source Pulse Rate 90 Respiratory Rate 16 Respiratory Pattern Blood Pressure 178/80 H Blood Pressure Mean 112 Pulse Ox 93 Oxygen Delivery Method Room Air Positive well nourished, well developed and obese General Appearance ED: well developed and NAD Nutritional Appearance: obese HEENT Reports moist mucous membranes normocephalic and atraumatic Eyes PERRL and EOMs intact bilaterally Neck full ROM and supple Resp normal respiratory effort and clear to auscultation bilaterally Cardio regular rate, regular rhythm and no murmurs GI non-distended GI Narrative: Minimal tenderness in the left lateral flank, otherwise benign abdomen. No guarding or rebound. Auscultation: normoactive bowel sounds Palpation: soft Back/Spine no CVA tenderness General Back: other FROM Extremity normal to inspection General Extremety ED: Negative for edema, pulses abnormal or tenderness General Extremity: Negative for edema or pulses abnormal Neuro oriented x3, CN's II-XII intact bilaterally and no sensory deficits noted Sensorium / Orientation: awake and alert Motor Exam: strength 5/5 throughout Skin no rashes or lesions noted and no wounds MDM MDM MDM Narrative Medical decision making narrative: Reviewed the patient's prior CT. It shows a 1.7 cm left renal pelvic stone that is probably ball valving the ureter, and intermittently obstructing as the radiologist had suggested. It appears to be too large to enter the ureter, so I did not see the utility in reimaging her since the pain is identical. We did have some issues trying to get her pain controlled, requiring several doses of morphine to help her be more comfortable. Her urine appears to be infected but her labs and renal function are all normal. I sent a culture, and I discussed with Dr. Patel, who states that the patient is scheduled for surgery in 8 days and would be preferable to wait until then, but 1 option would be to admit her to [facility] for ureteral stenting to help temporize. Looking at the culture results they have, it appeared the patient has been on Omnicef for the past 10 days, and E. coli, Klebsiella, and Morganella grew out of her urine. Since the patient is not allergic to ciprofloxacin, he said that would cover 2 out of the 3 bugs and would be the next best choice for an oral agent. Prior to discussing this with him, I gave the patient 1 g of IV Rocephin. She is not clinically septic, just in pain. She does not have a leukocytosis or significant shift or bandemia. Discussed these options with her. She prefers not to be transferred undergo stenting. She is feeling better at this point, she states the pain is still there a little but she prefers to go home with pain medications. She cannot take Percocet, due to allergy. She can take Barto but has a bit of itching with it, but states she will do that. She does not have any life-threatening allergy to it. We discussed reasons to return and she is comfortable with that plan. Lab Data Attestation: I reviewed the patient's lab results. Labs: Laboratory Results - last 24 hr 05/21/22 05/21/22 05/21/22 09:35 09:35 10:52 WBC 9.8 RBC 4.12 L Hgb 12.0 Hct 38.8 MCV 94.2 MCH 29.1 MCHC 30.9 L RDW Std Deviation 48.6 H RDW Coeff of Gail 14.1 Plt Count 365 MPV 11.3 Immature Gran % (Auto) 0.500 Neut % (Auto) 72.6 H Lymph % (Auto) 14.9 L [place] % (Auto) 10.1 H Eos % (Auto) 1.4 Baso % (Auto) 0.5 Absolute Neuts (auto) 7.1 Absolute Lymphs (auto) 1.46 Nucleated RBC % 0 Sodium 138 Potassium 4.4 Chloride 105 Carbon Dioxide 28.0 Anion Gap 5 BUN 13 Creatinine 0.76 Estim Creat Clear Calc 42.00 Est GFR (MDRD) Af Amer 94 Est GFR (MDRD) Non-Af 78 BUN/Creatinine Ratio 17.1 Glucose 179 H Calcium 9.0 Urine Color Yellow Urine Clarity Sl. Cloudy Urine pH 5.0 Ur Specific [place] 1.020 Urine Protein 15 H Urine Glucose (UA) Normal Urine Ketones 5 H Urine Occult Blood 150 H Urine Nitrite Negative Urine Bilirubin Negative Urine Urobilinogen Normal Ur Leukocyte Esterase 500 H Urine RBC 10-25 SEEN Urine WBC 25-50 SEEN Ur Squamous Epith Cells 0-5 SEEN Calcium Oxalate Crystal 2+ Urine Bacteria 1+ Urine Mucus 0 SEEN Discharge Plan Triage Chief Complaint: Flank Pain ED Provider: Eren Dial Dx/Rx/DC Orders Clinical Impression: Renal colic on left side, Complicated urinary tract infection, Left nephrolithiasis Instructions: ED Kidney Stone w/ Colic Prescriptions: New hydrocodone-acetaminophen [hydrocodone-acetaminophen] 5-325 mg tablet 1 tab PO Q4H PRN PRN (Reason: Pain) 3 Days Qty: 15 0RF ciprofloxacin HCl [ciprofloxacin HCl] 500 mg tablet 500 mg PO BID Qty: 20 0RF No Action calcitriol 0.5 MCG capsule 0.5 mcg PO DAILY Label Comments: gabapentin 300 MG capsule 300 mg PO QHS Label Comments: metformin 500 MG tablet 2,000 mg PO DAILY Label Comments: take 1 tablet by mouth twice a day with meals oxybutynin chloride 10 MG tablet extended release 24hr 10 mg PO DAILY PRN PRN (Reason: overactive bladder) lidocaine HCl 1 APPLIC jelly 1 applic TP TID calcium carbonate-vitamin D3 1 EACH tablet 1 ea PO TID acetaminophen 500 MG tablet 500 mg PO QHS ascorbic acid (vitamin C) 500 MG tablet 500 mg PO DAILY hydrocodone-acetaminophen 1 EACH tablet 1 ea PO 4X/DAY PRN PRN (Reason: Pain Or Fever) cyanocobalamin (vitamin B-12) 1,000 MCG/ML solution 1,000 mcg IM Q30D multivitamin with minerals 1 EACH tablet 1 ea PO DAILY clobetasol-emollient 15 GM cream 1 applic TP QHS biotin 2,500 MCG capsule 2,500 mcg PO DAILY cetirizine 10 MG capsule 10 mg PO DAILY rivaroxaban 15 MG tablet 15 mg PO BID Qty: 42 0RF apixaban 5 MG tablet 5 mg PO BID Qty: 74 0RF Rx Instructions: 10 mg twice a day for the first week. Then 5 mg twice a day. tamsulosin [Flomax] 0.4 mg capsule 0.4 mg PO DAILY 14 Days Qty: 14 0RF morphine [MS Contin] 15 mg tablet extended release 15 mg PO TID PRN PRN (Reason: pain) 5 Days Qty: 15 0RF ondansetron 4 mg tablet,disintegrating 4 mg PO TID PRN PRN (Reason: nausea and vomiting) Qty: 21 0RF Primary Care Provider: Aria Helms Referrals: Aria Helms MD [Primary Care Provider] - Maykel Patel MD [Non-Staff] - Keep Padmini appointment (Or call to discuss any changes in your symptoms) Disposition Disposition: Home, Self Care
[2022-05-21 10:36] VITALS: BP 139/79; PULSE 93; RESP 18; O2SAT 92
[2022-05-21] MEDS: Morphine 4 MG/ML Syringe IV (10:37)
[2022-05-21 10:49] LABS: Absolute Lymphocyte Count 1.46 X10^3/uL (0.83-4.51); Absolute Neutrophil Count 7.1 X10^3/uL (2.0-7.7); Basophil# 0.05 X10^3/uL; Basophil% 0.5 % (0-1); Eosinophil# 0.14 X10^3/uL; Eosinophils% 1.4 % (0-5); Hematocrit 38.8 % (37-47); Lymphocyte # 1.46 X10^3/ul (0.83-4.51); Lymphocyte % 14.9 % (19-41); Mean Corp Hgb Conc 30.9 g/dL (32-36); Mean Corpuscular Hgb 29.1 pg (27.0-32.0); Mean Corpuscular Volume 94.2 fL (81-99); Mean Platelet Vol. 11.3 fl (6.2-12.0); Monocyte# 0.99 X10^3/uL; Monocyte% 10.1 % (0-10); NRBC Flagged by Analyzer 0 % (0-5); Neutrophil # 7.13 X10^3/uL (2.7-7.7); Neutrophil % 72.6 % (47-70); Platelet Count 365 K/mm3 (150-450); RBC Distribution Width CV 14.1 % (11.6-14.6); RBC Distribution Width SD 48.6 fl (35.1-43.9); Red Blood Count 4.12 M/mm3 (4.2-5.4); White Blood Count 9.8 K/mm3 (4.4-11.0)
[2022-05-21 10:59] LABS: Mucous, Urine 0 SEEN /hpf (<or=2+)
[2022-05-21 11:02] LABS: Anion Gap 5 (5-15); BUN 13 mg/dL (7-18); BUN/Creat Ratio 17.1 RATIO (10-20); Chloride 105 mmol/L (98-107); Creatinine, Serum 0.76 mg/dL (0.55-1.02); EST Glomerular Filtration Rate 78 mL/min (>60); Est Glom Filt Rate - Afr Amer 94 mL/min (>60); Glucose 179 mg/dL (74-106); Potassium 4.4 mmol/L (3.5-5.1); Sodium Level 138 mmol/L (136-145)
[2022-05-21 11:06] LABS: Color, Urine Yellow (Yellow); Glucose, Dipstick Normal (Normal); Ketone-Dipstick 5 mg/dl (Negative); Leukocyte Esterase-Dipstick 500 /ul (Negative); Nitrite-Dipstick Negative (Negative); Occult Blood-Urine 150 /ul (Negative); Protein-Dipstick 15 mg/dl (Negative); Urine Bilirubin Dipstick Negative (Negative); Urine Clarity Sl. Cloudy (Clear); Urine Urobilinogen Normal (Normal)
[2022-05-21 11:14] LABS: Bacteria 1+ /hpf (None Seen); Calcium Oxalate Crystals Ur 2+ /hpf (<or=2+); Red Blood Cells-Urine 10-25 SEEN /hpf (0-5); Squamous Epithelial Cells - UA 0-5 SEEN /hpf (5-10); White Blood Cells 25-50 SEEN /hpf (0-5)
[2022-05-21 11:47] VITALS: RESP 16; O2SAT 95
[2022-05-21 11:59] VITALS: BP 167/88; PULSE 91; RESP 18; O2SAT 94
[2022-05-21] MEDS: Ceftriaxone 1 GM/50 ML BAG IV (12:49)
[2022-05-21 13:04] VITALS: BP 191/81; PULSE 98; RESP 16; O2SAT 94
[2022-05-21 14:13] VITALS: BP 178/80; PULSE 90; RESP 16; O2SAT 93
[2022-05-21] MEDS: Ciprofloxacin 500 MG Tablet PO (14:43)
== END 2022-05-21 14:47 | disposition home or self-care (01) ==
PROVIDERS: Emergency Provider Emergency Medicine; PCP Internal Medicine; Visit Provider Emergency Medicine
DX: N39.0 Urinary tract infection, site not specified (principal); E11.9 Type 2 diabetes mellitus without complications; N20.0 Calculus of kidney; I10 Essential (primary) hypertension; E66.9 Obesity, unspecified
CPT/HCPCS: 80048; 81001; 85025; 87077; 87086; 87088; 87186; 96365; 96375; 96376; 99284; J7050; A4216; J2405

== ENCOUNTER 2022-08-11 08:56 | Outpatient (RCR) | payer MEDICARE, SELFPAY ==
--- NOTE | 2022-08-11 15:47 | HP.PTEVAL ---
Patient's Visit Information RAUL DOLL is a 82 year old F referred to Physical Therapy by DAMIAN GARCIA with a diagnosis of SPINALSTENOSIS LUMBAR ,LUMBAR SPONDYLOSIS,L- RADICULOATHY,SPONDYLOLISTHESIS. Date of Evaluation: 08/11/22 Physical Therapist: Jacobo Lawler, PT, Cert MDT, OCS - Visit Plan Frequency: 2x /Week Duration: 4 Weeks Plan: PT INTERVTENTIONS BLE STRENGTHENING ESPECIALLY HIPS ,POSTURAL EX'S ,DLS AND FUNCTIONAL STRENGTHENING - Subjective This 82 y/o female presents to physical therapy with lumbar radiculopathy. Patient has these symptoms several years . Patient has seen pain management tried injections which did not help. Patient pain located posterior LS left. Patient has had MRI ~ 3weeks ago showed stenosis ,DDD and spondylothesis. Patient is taking no medication . Aggravating factors walking < 100 ft ,standing 2 mins ,unable to lifting and difficulty with bending. Patient uses FWW with gait . Alleviating factors sitting . Symptoms better in morning by afternoon worse. Symptoms affects sleeping. Denies paresthesia/tingling -. Bowel/bladder -.Coughing/sneezing- Patient lives in 1 story home 2steps + 1step. Patient has walk-in shower with shower chair. Patient has had prior PT X 5 years ago. Patient fell couple times. Patient able to bath and dress self. Patient has TKR bilateral , 5 hernia repair ,gastric by pass. Patient pain affects QOL is inactive due to pain. SOCIAL: . VOCATION: RETIRED - Pain Left Back Pain Intensity (Out of 10): 10 Pain Intensity Range: 10 Comment: walking - Objective POSTURE: forward posture hips/knees flexed. NEURO: denies paresthesia/tingling ,reflexes L3-4 ,L4-5 ,L5-S 1 /. GAIT: ambulates with forward posture hip/knees flexed slow janny antalgic gait using fww. PALAPTION: left > right SI tenderness. LUMBAR ROM: flexion mod loss ,extension severe loss, side glides mod loss. FLEXABLITY: hamstrings mild tight ,piriformis mod tight. MMT: quads/hams 4/5 ,( peak force hip flexion left 0 .right 5.8,ankle 4/5. - Special Tests L/S Slump test left side: Negative L/S Slump test right side: Negative L/S Left Straight Leg Raise: Negative L/S Right Straight Leg Raise: Negative - Balance/Special Test Scores Oswestry Low Back Score: 38 - Goals Goal 1:: Patient to be I with HEP Goal Time Frame: 4-6 Weeks Goal 2:: Patient to demonstrate 40% with improved function and less pain. Goal Time Frame: 4-6 Weeks Goal 3:: Patient to improve lumbar ROM for function of recovery to tie shoes Goal Time Frame: 4-6 Weeks Goal 4:: Patient to increase hip strength by 5 peak force to improve gait Goal Time Frame: 4-6 Weeks Goal 5:: Patient to ambulate > 200 FT with less pain with fww Goal Time Frame: 4-6 Weeks Goal 6:: Patient to improve back oswestry score by 5 points to improve QOL Goal Time Frame: 4-6 Weeks - Rehabilitation Potential Physical Therapy Diagnosis: This patient has multiple comorbities to influence condition along with back pain to hip ,weakness hip left > right ,difficulty to walk < 100 ft and stand < 2 mins , affects ADL's and housework tasks thus benefit from skilled PT Rehabilitation Potential: Fair - Anticipated Interventions Patient/Client Instruction: Educate patient on: Condition, Plan of Care For the Purpose of:: To decrease pain, To increase ROM, To improve muscle performance and motor function, To improve ability to perform ADL's, To increase tolerance to activity/condition/position, To improve ability of physical actions for home/community/work/leisure, To improve health of tissue, To decrease soft tissue restriction, To increase flexibility/ROM, To reduce risk of recurrence, To improve tolerance to ADL's Therapeutic Exercise to Include: Strength training, Endurance training, Balance training, Postural training, Flexibilty training, Dynamic Lumbar Stabilization Comment: BLE For the Purpose of:: To decrease pain, To increase ROM, To improve muscle performance and motor function, To improve ability to perform ADL's, To increase tolerance to activity/condition/position, To improve ability of physical actions for home/community/work/leisure, To improve health of tissue, To decrease soft tissue restriction, To increase flexibility/ROM TENS: Yes IF ES: Yes Cryotherapy (ice pack, ice massage): Yes Thermo therapy (hot pack): Yes Ultrasound (thermal/non thermal): Yes For the Purpose of:: To decrease pain, To improve nutrient delivery to tissue, To increase oxygenation perfusion Thank you for the opportunity to evaluate your patient. For Medicare and Medicare HMO plans, please review the plan of care and approve it. It will need to be FAXED BACK to us at [phone] for Medicare purposes. For Medicare only, by signing this I certify the plan of care. Please let me know if there are questions or concerns regarding this plan of care. Physician Signature: Date:
--- NOTE | 2022-12-27 17:02 | HP.PT.NRP ---
Patient Information Patient Information: RAUL DOLL was seen in my office for initial evaluation on 08/11/22. The following Plan of Care was established for this patient: POC Established Initial Frequency: 2x /Week Initial Duration: 4 Weeks Anticipated Interventions Patient/Client Instruction: Educate patient on: Condition and Plan of Care For the Purpose of:: To decrease pain, To increase ROM, To improve muscle performance and motor function, To improve ability to perform ADL's, To increase tolerance to activity/condition/position, To improve ability of physical actions for home/community/work/leisure, To improve health of tissue, To decrease soft tissue restriction, To increase flexibility/ROM, To reduce risk of recurrence and To improve tolerance to ADL's Therapeutic Exercise to Include: Strength training, Endurance training, Balance training, Postural training, Flexibilty training and Dynamic Lumbar Stabilization For the Purpose of:: To decrease pain, To increase ROM, To improve muscle performance and motor function, To improve ability to perform ADL's, To increase tolerance to activity/condition/position, To improve ability of physical actions for home/community/work/leisure, To improve health of tissue, To decrease soft tissue restriction and To increase flexibility/ROM TENS: Yes IF ES: Yes Cryotherapy (ice pack, ice massage): Yes Thermo therapy (hot pack): Yes Ultrasound (thermal/non thermal): Yes For the Purpose of:: To decrease pain, To improve nutrient delivery to tissue and To increase oxygenation perfusion Last Seen Last Seen: This patient was last seen in our office . Pertinent comments regarding their Physical therapy will appear below: Patient was seen for PT intial Evaluation for HEP At this point I will be discontinuing this patient from physical therapy. I would be happy to see this patient again in the future if found appropriate by the physician. Thank you! Jacobo Lawler, PT, Cert MDT, OCS Balance/Gait/Functional tests Balance/Special Test Scores Oswestry Low Back Score: 38
== END 2022-08-11 19:00 | disposition home or self-care (01) ==
LOC: PT 08:56
PROVIDERS: PCP Internal Medicine
DX: M48.061 Spinal stenosis, lumbar region without neurogenic claudication (principal); M47.26 Other spondylosis with radiculopathy, lumbar region; M43.16 Spondylolisthesis, lumbar region
CPT/HCPCS: 97110; 97162

== ENCOUNTER 2023-02-26 17:32 | Emergency (ER) | payer MEDICARE, SELFPAY ==
[2023-02-26 17:33] VITALS: BP 147/92; PULSE 69; RESP 18; TEMP 36.1; O2SAT 98; BMI 33.0
--- NOTE | 2023-02-26 17:46 | CT_ITS ---
INDICATION: trauma EXAMINATION: CT BRAIN - CT Head or Brain W/O Contrast Injection TECHNIQUE: Multiple axial images were obtained of the head without intravenous contrast. A radiation dose optimization technique was used for this scan. IV Contrast dosage and agent: None. RADIATION DOSAGE (If Supplied By Facility): CTDIvol = ( 44.99 ) mGy, DLP = ( 812.98 ) mGycm COMPARISON: No relevant prior examinations for comparison FINDINGS: HEMISPHERES: 1. The cerebral parenchyma, ventricular system, subarachnoid spaces have normal configuration and density. There is a normal gyral pattern. There is normal mcfadden/white differentiation. No midline shift.. 2. Diffuse involutional change and chronic microvascular deep white matter disease. 3. No intraparenchymal mass, hemorrhage, or acute territorial infarct. CEREBELLUM - BRAINSTEM: The cerebellum, brainstem, basilar and suprasellar cisterns have normal appearance. No Chiari malformation. PITUITARY: Infundibulum and pituitary have normal configuration. Midline structures appear normal. CSF SPACES: Appropriate for age. No hydrocephalus. Basal cisterns are patent. VESSELS: 1. Diffuse carotid vascular calcifications bilaterally. 2. No hyperdense vascular signs noted.. ORBITS AND PARANASAL SINUSES: 1. Normal appearance of the bony orbits. Normal appearance of the globes and retrobulbar soft tissues.. 2. Paranasal sinuses are clear. BONY ELEMENTS: Bony elements of the cranial vault, facial skeleton and skull base have normal appearance. SCALP AND SOFT TISSUES: Normal appearance of the soft tissues of the scalp and the visualized face OTHER: None ASPECTS Score for Acute Strokes: 10 CT/Brain/Head without Contrast IMPRESSION: 1. Stable exam. 2. No intracranial evidence of acute traumatic injury. 3. Diffuse involutional change and chronic microvascular deep white matter disease 4. No intracranial mass, hemorrhage or acute territorial infarct. 5. No craniofacial fractures. 6. No radiographically significant sinus disease.. Electronically Signed: Joaquin Hogue MD at 19:01 EDT ,
--- NOTE | 2023-02-26 17:46 | EDS_ITS ---
HPI HPI - Fall History of Present Illness Chief Complaint: Fall Informant: patient, family and EMS Occured/Mechanism Occurred: Today Narrative Narrative: Patient presents via EMS just over an hour after falling at home. She states she leaned against a chair that moved and she fell to the ground. She states she initially had pain in her hip but that is subsided. She has chronic back pa in and states that she was getting quite a bit of pain whenever she would try to move, but that seems to be improving as well. She denies striking her head. She is on Eliquis secondary to a history of PE. [facility] Medical History Back fracture Diabetes HTN (hypertension) Pulmonary emboli Home Medications calcitriol 0.5 mcg capsule 0.5 mcg PO DAILY 03/04/15 [History Last Taken Unknown] gabapentin 300 mg capsule 300 mg PO QHS 03/04/15 [History Last Taken Unknown] metformin 500 mg tablet,extended release 24 hr 2,000 mg PO DAILY 06/13/17 [History Last Taken Unknown] acetaminophen 500 mg tablet 500 mg PO QHS 03/31/19 [History Last Taken Unknown] ascorbic acid (vitamin C) 500 mg tablet 500 mg PO DAILY 03/31/19 [History Last Taken Unknown] biotin 2,500 mcg capsule 2,500 mcg PO DAILY 03/31/19 [History Last Taken Unknown] calcium carbonate 600 mg-vitamin D3 5 mcg (200 unit) tablet 1 ea PO TID 03/31/19 [History Last Taken Unknown] cetirizine 10 mg capsule 10 mg PO DAILY 03/31/19 [History Last Taken Unknown] clobetasol-emollient 0.05 % topical cream 1 applic TP QHS 03/31/19 [History Last Taken Unknown] cyanocobalamin (vitamin B-12) 1,000 mcg/mL injection solution 1,000 mcg IM Q30D 03/31/19 [History Last Taken Unknown] hydrocodone 7.5 mg-acetaminophen 325 mg tablet 1 ea PO 4X/DAY PRN PRN Pain Or Fever 03/31/19 [History Last Taken Unknown] lidocaine HCl 2 % mucosal jelly 1 applic TP TID 03/31/19 [History Last Taken Unknown] multivitamin with minerals 1 ea PO DAILY 03/31/19 [History Last Taken Unknown] oxybutynin chloride 10 mg tablet,extended release 24 hr 10 mg PO DAILY PRN PRN overactive bladder 03/31/19 [History Last Taken Unknown] rivaroxaban 15 mg tablet 15 mg PO BID #42 tabs 03/31/19 [Rx Last Taken Unknown] apixaban 5 mg tablet 5 mg PO BID #74 tabs 08/27/20 [Rx Last Taken Unknown] morphine 15 mg tablet,extended release (MS Contin) 15 mg PO TID PRN PRN pain 5 days #15 tabs 02/28/22 [Rx Last Taken Unknown] ondansetron 4 mg disintegrating tablet 4 mg PO TID PRN PRN nausea and vomiting #21 tabs 02/28/22 [Rx Last Taken Unknown] tamsulosin 0.4 mg capsule (Flomax) 0.4 mg PO DAILY 14 days #14 caps 02/28/22 [Rx Last Taken Unknown] ciprofloxacin HCl 500 mg tablet 500 mg PO BID #20 TABLETS 05/21/22 [Rx Last Taken Unknown] hydrocodone-acetaminophen 5-325mg 5mg-325mg 1 tab PO Q4H PRN PRN Pain 3 days #15 TABLETS 05/21/22 [Rx Last Taken Unknown] Allergy/AdvReac Type Severity Reaction Status Date / Time adhesive Allergy Rash Verified 05/21/22 09:06 aspirin [ASA] Allergy Anaphylaxis Verified 05/21/22 09:06 atorvastatin [From Lipitor] Allergy Unknown Verified 05/21/22 09:06 Dressing: Non-Medicated Allergy Rash Verified 09/17/22 11:47 exenatide [From [place]] Allergy Unknown Verified 05/21/22 09:06 ezetimibe [From Zetia] Allergy Rash Verified 05/21/22 09:06 irbesartan [From Avapro] Allergy Swelling Verified 05/21/22 09:06 niacin Allergy Unknown Verified 05/21/22 09:06 Penicillins Allergy Rash Verified 05/21/22 09:06 pravastatin Allergy Rash Verified 05/21/22 09:06 rosuvastatin [From Crestor] Allergy Unknown Verified 05/21/22 09:06 simvastatin [From Zocor] Allergy Rash Verified 05/21/22 09:06 Rauvtkf-NHO-EfI Reductase Allergy Other Verified 05/21/22 09:06 Inhibitor [Lvlpkij-Zvs-Dsk Reductase Inhibitor] egg AdvReac Diarrhea Verified 05/21/22 09:06 erythromycin base AdvReac Other Verified 05/21/22 09:06 etodolac AdvReac Unknown Verified 05/21/22 09:06 metformin AdvReac Diarrhea Verified 05/21/22 09:06 NSAIDS (Non-Steroidal AdvReac Other Verified 05/21/22 09:06 Anti-Inflamma Sulfa (Sulfonamide AdvReac Rash Verified 05/21/22 09:06 Antibiotics) Social History household members: spouse Smoking Status: Never smoker substance use type: does not use ROS ROS ED Constitutional Constitutional ED: Denies chills or fever(s) Eyes Eyes: Denies change in vision or discharge from eye(s) ENT ENT ED: Denies discharge from eye(s), rhinorrhea or sore throat Cardiovascular Cardiovascular: Denies chest pain or palpitations Respiratory/Chest Respiratory/Chest: Denies cough or dyspnea Gastrointestinal Gastrointestinal: Denies abdominal pain, nausea or vomiting Musculoskeletal Musculoskeletal: Reports back pain and extremity pain Integumentary Denies Abrasions or rash Neurologic Neurologic: Denies headache(s) or weakness Psychiatric Psychiatric: Denies anxiety or depression Allergic/Immunologic Allergic/Immunologic ED: Denies lip swelling or urticaria EXAM Physical Exam Const Vital Signs: 02/26/23 17:33 02/26/23 17:39 02/26/23 19:30 Temperature 96.9 F L Temperature Source Temporal Pulse Rate 69 71 Respiratory Rate 18 16 Respiratory Effort Normal Non-Labored Blood Pressure 147/92 H 116/98 H Blood Pressure Mean 110 104 Pulse Ox 98 95 Oxygen Delivery Method Room Air Room Air Room Air Positive well nourished and well developed General Appearance ED: well developed HEENT Reports normocephalic Eyes EOMs intact bilaterally Neck full ROM Chest Wall inspection of chest normal and palpation of chest normal Resp normal respiratory effort and no retractions Cardio regular rate and regular rhythm GI non-tender Palpation: soft Back/Spine Back/Spine Narrative: Mild tenderness to the low lumbar/upper sacral region. Extremity Extremity Narrative: No pain with logroll of either hip. Full range of motion of upper extremities without difficulty. No abrasions or ecchymoses. Neuro oriented x3 and moves all extremities Psych mental status grossly normal MDM MDM MDM Narrative Medical decision making narrative: Patient had been nauseated with EMS, but feels improved after Zofran. Patient be sent for CT scan of the head given her fall and anticoagulation. Pelvis x- ray with bilateral hips obtained given her pain after fall. Diagnosis includes fracture, contusion. Radiography Diagnostic Testing: Clinical Impression(s) from Imaging Studies Brain CT 02/26/23 17:46 IMPRESSION: 1. Stable exam. 2. No intracranial evidence of acute traumatic injury. 3. Diffuse involutional change and chronic microvascular deep white matter disease 4. No intracranial mass, hemorrhage or acute territorial infarct. 5. No craniofacial fractures. 6. No radiographically significant sinus disease.. Electronically Signed: Joaquin Hogue MD at 19:01 EDT , Hip/Pelvis X-Ray 02/26/23 18:22 IMPRESSION: 1. Stable exam. 2. Diffuse arthropathy involving the hips bilaterally. No fracture dislocation or destructive bony process. Electronically Signed: Joaquin Hogue MD at 19:10 EDT , Treatment and Re-Evaluation Narrative: Patient did get a dose of Tylenol followed by dose of morphine upon return from imaging. CT scan of the head reveals chronic changes with no acute findings. Pelvis and bilateral hip x-ray reviewed by myself reveals no evidence of acute fracture. Radiology interpretation is reviewed and agrees. Patient is been able to get up to bedside commode and back in bed without difficulty. She will continue her Tylenol at home for pain. She will be discharged with family and return instructions are provided. Discharge Plan Triage Chief Complaint: Fall ED Provider: Natalya Medina Dx/Rx/DC Orders Clinical Impression: Back contusion, Fall Instructions: ED Back Contusion Prescriptions: No Action calcitriol 0.5 MCG capsule 0.5 mcg PO DAILY Patient Comments: gabapentin 300 MG capsule 300 mg PO QHS Patient Comments: metformin 500 MG tablet 2,000 mg PO DAILY Patient Comments: take 1 tablet by mouth twice a day with meals oxybutynin chloride 10 MG tablet extended release 24hr 10 mg PO DAILY PRN PRN (Reason: overactive bladder) lidocaine HCl 1 APPLIC jelly 1 applic TP TID calcium carbonate-vitamin D3 1 EACH tablet 1 ea PO TID acetaminophen 500 MG tablet 500 mg PO QHS ascorbic acid (vitamin C) 500 MG tablet 500 mg PO DAILY hydrocodone-acetaminophen 1 EACH tablet 1 ea PO 4X/DAY PRN PRN (Reason: Pain Or Fever) cyanocobalamin (vitamin B-12) 1,000 MCG/ML solution 1,000 mcg IM Q30D multivitamin with minerals 1 EACH tablet 1 ea PO DAILY clobetasol-emollient 15 GM cream 1 applic TP QHS biotin 2,500 MCG capsule 2,500 mcg PO DAILY cetirizine 10 MG capsule 10 mg PO DAILY rivaroxaban 15 MG tablet 15 mg PO BID Qty: 42 0RF apixaban 5 MG tablet 5 mg PO BID Qty: 74 0RF Rx Instructions: 10 mg twice a day for the first week. Then 5 mg twice a day. tamsulosin [Flomax] 0.4 mg capsule 0.4 mg PO DAILY 14 Days Qty: 14 0RF morphine [MS Contin] 15 mg tablet extended release 15 mg PO TID PRN PRN (Reason: pain) 5 Days Qty: 15 0RF ondansetron 4 mg tablet,disintegrating 4 mg PO TID PRN PRN (Reason: nausea and vomiting) Qty: 21 0RF hydrocodone-acetaminophen [hydrocodone-acetaminophen] 5-325 mg tablet 1 tab PO Q4H PRN PRN (Reason: Pain) 3 Days Qty: 15 0RF ciprofloxacin HCl [ciprofloxacin HCl] 500 mg tablet 500 mg PO BID Qty: 20 0RF Primary Care Provider: Aria Helms Referrals: Aria Helms MD [Primary Care Provider] - 1 Week if not improving Disposition Disposition: Home, Self Care
--- NOTE | 2023-02-26 18:22 | RAD_ITS ---
INDICATION: fall EXAMINATION/TECHNIQUE: X-RAY - XR Hips Bilateral with Pelvis when performed; 2 Views COMPARISON: 02/21/2022 FINDINGS: PELVIC BONES: No displaced fracture, destructive or sclerotic lesions. Note that overlapping bowel shadows may however obscure fine detail. Sacroiliac joints are unremarkable. No widening of the pubic symphysis. HIPS: No change in alignment of the hips. There are marginal osteophytes from the acetabular lip bilaterally. Joint space is maintained. No fracture or destructive bony process. SOFT TISSUES: No soft tissue swelling or gas. RAD/Hips B/L min 2 views w/ Pelvis IMPRESSION: 1. Stable exam. 2. Diffuse arthropathy involving the hips bilaterally. No fracture dislocation or destructive bony process. Electronically Signed: Joaquin Hogue MD at 19:10 EDT ,
[2023-02-26] MEDS: Acetaminophen 500 MG Tablet 1000 MG PO (19:29)
[2023-02-26 19:30] VITALS: BP 116/98; PULSE 71; RESP 16; O2SAT 95
[2023-02-26] MEDS: Morphine 4 MG/ML Syringe IV (19:59)
== END 2023-02-26 20:45 | disposition home or self-care (01) ==
PROVIDERS: Emergency Provider Emergency Medicine; PCP Internal Medicine; Visit Provider Emergency Medicine
DX: S20.229A Contusion of unspecified back wall of thorax, initial encounter (principal); E11.9 Type 2 diabetes mellitus without complications; I10 Essential (primary) hypertension; M25.552 Pain in left hip; M25.551 Pain in right hip; G89.29 Other chronic pain; R11.0 Nausea; Z79.01 Long term (current) use of anticoagulants; Z86.711 Personal history of pulmonary embolism; W19.XXXA Unspecified fall, initial encounter
CPT/HCPCS: 70450; 73521; 96374; 99285; A4216

== ENCOUNTER 2023-06-12 19:15 | Emergency (ER) | payer MEDICARE, SELFPAY ==
[2023-06-12 19:17] VITALS: BP 181/80; PULSE 97; RESP 18; TEMP 36.2; O2SAT 93; BMI 35.6
[2023-06-12 19:23] VITALS: BP 171/78; PULSE 99; RESP 18
--- NOTE | 2023-06-12 19:51 | EX.ED.DYSGE1 ---
HPI History of Present Illness Chief Complaint: General Illness Informant: patient Onset/Context/Timing Onset: Today Context: Sudden Onset Timing: Waxes and wanes Quality: Sharp Location: Right thigh Worsened by: Nothing Relieved by: Nothing Narrative Narrative: Patient presents after a fall that occurred today. Patient states her right leg gave out. Patient states she had sharp pain in her right thigh. Patient states it does this occasionally. Patient does admit to some pain in her back after the fall. Patient admits to some nausea but denies any vomiting. Patient admits to a cough. Patient denies any fevers or chills. Patient was able to stand after the fall but states she still feels weak in her right leg. Patient states nothing makes her symptoms better nothing makes them worse. [facility] Medical History (Updated 06/12/23 @ 22:[address] Kerwin Kumar, ) Back fracture Diabetes HTN (hypertension) Pulmonary emboli Home Medications calcitriol 0.5 mcg capsule 0.5 mcg PO DAILY 03/04/15 [History Last Taken Unknown] gabapentin 300 mg capsule 300 mg PO QHS 03/04/15 [History Last Taken Unknown] metformin 500 mg tablet,extended release 24 hr 2,000 mg PO DAILY 06/13/17 [History Last Taken Unknown] acetaminophen 500 mg tablet 500 mg PO QHS 03/31/19 [History Last Taken Unknown] ascorbic acid (vitamin C) 500 mg tablet 500 mg PO DAILY 03/31/19 [History Last Taken Unknown] biotin 2,500 mcg capsule 2,500 mcg PO DAILY 03/31/19 [History Last Taken Unknown] calcium carbonate 600 mg-vitamin D3 5 mcg (200 unit) tablet 1 ea PO TID 03/31/19 [History Last Taken Unknown] cetirizine 10 mg capsule 10 mg PO DAILY 03/31/19 [History Last Taken Unknown] clobetasol-emollient 0.05 % topical cream 1 applic TP QHS 03/31/19 [History Last Taken Unknown] cyanocobalamin (vitamin B-12) 1,000 mcg/mL injection solution 1,000 mcg IM Q30D 03/31/19 [History Last Taken Unknown] hydrocodone 7.5 mg-acetaminophen 325 mg tablet 1 ea PO 4X/DAY PRN PRN Pain Or Fever 03/31/19 [History Last Taken Unknown] lidocaine HCl 2 % mucosal jelly 1 applic TP TID 03/31/19 [History Last Taken Unknown] multivitamin with minerals 1 ea PO DAILY 03/31/19 [History Last Taken Unknown] oxybutynin chloride 10 mg tablet,extended release 24 hr 10 mg PO DAILY PRN PRN overactive bladder 03/31/19 [History Last Taken Unknown] rivaroxaban 15 mg tablet 15 mg PO BID #42 tabs 03/31/19 [Rx Last Taken Unknown] apixaban 5 mg tablet 5 mg PO BID #74 tabs 08/27/20 [Rx Last Taken Unknown] morphine 15 mg tablet,extended release (MS Contin) 15 mg PO TID PRN PRN pain 5 days #15 tabs 02/28/22 [Rx Last Taken Unknown] ondansetron 4 mg disintegrating tablet 4 mg PO TID PRN PRN nausea and vomiting #21 tabs 02/28/22 [Rx Last Taken Unknown] tamsulosin 0.4 mg capsule (Flomax) 0.4 mg PO DAILY 14 days #14 caps 02/28/22 [Rx Last Taken Unknown] ciprofloxacin HCl 500 mg tablet 500 mg PO BID #20 TABLETS 05/21/22 [Rx Last Taken Unknown] hydrocodone-acetaminophen 5-325mg 5mg-325mg 1 tab PO Q4H PRN PRN Pain 3 days #15 TABLETS 05/21/22 [Rx Last Taken Unknown] Allergy/AdvReac Type Severity Reaction Status Date / Time adhesive Allergy Rash Verified 06/12/23 19:23 aspirin [ASA] Allergy Anaphylaxis Verified 06/12/23 19:23 atorvastatin [From Lipitor] Allergy Unknown Verified 06/12/23 19:23 Dressing: Non-Medicated Allergy Rash Verified 06/12/23 19:23 exenatide [From [place]] Allergy Unknown Verified 06/12/23 19:23 ezetimibe [From Zetia] Allergy Rash Verified 06/12/23 19:23 irbesartan [From Avapro] Allergy Swelling Verified 06/12/23 19:23 niacin Allergy Unknown Verified 06/12/23 19:23 Penicillins Allergy Rash Verified 06/12/23 19:23 pravastatin Allergy Rash Verified 06/12/23 19:23 rosuvastatin [From Crestor] Allergy Unknown Verified 06/12/23 19:23 simvastatin [From Zocor] Allergy Rash Verified 06/12/23 19:23 Nptjuuk-LAI-IhL Reductase Allergy Other Verified 06/12/23 19:23 Inhibitor [Ygnfbxb-Lqy-Uwi Reductase Inhibitor] egg AdvReac Diarrhea Verified 06/12/23 19:23 erythromycin base AdvReac Other Verified 06/12/23 19:23 etodolac AdvReac Unknown Verified 06/12/23 19:23 metformin AdvReac Diarrhea Verified 06/12/23 19:23 NSAIDS (Non-Steroidal AdvReac Other Verified 06/12/23 19:23 Anti-Inflamma Sulfa (Sulfonamide AdvReac Rash Verified 06/12/23 19:23 Antibiotics) Surgical History (Updated 06/12/23 @ 22:[address] Kerwin Kmuar DO) History of total right knee replacement Social History household members: spouse Smoking Status: Never smoker substance use type: does not use ROS ROS ED Constitutional Constitutional ED: Denies chills or fever(s) Eyes Eyes: Denies blurry vision or change in vision ENT ENT ED: Denies rhinorrhea or sore throat Cardiovascular Cardiovascular: Denies chest pain or palpitations Respiratory/Chest Respiratory/Chest: Reports cough; Denies dyspnea Gastrointestinal Gastrointestinal: Reports nausea; Denies vomiting Genitourinary Genitourinary ED: Denies dysuria or hematuria Musculoskeletal Musculoskeletal: Reports back pain; Denies neck pain Integumentary Denies abscess or rash Neurologic Neurologic: Reports weakness; Denies headache(s) Allergic/Immunologic Allergic/Immunologic ED: Denies mouth swelling or urticaria EXAM Physical Exam Const Vital Signs: 06/12/23 19:17 06/12/23 19:23 Temperature 97.1 F L Temperature Source Temporal Pulse Rate 97 99 Respiratory Rate 18 18 Blood Pressure 181/80 H 171/78 H Blood Pressure Mean 113 109 Pulse Ox 93 Oxygen Delivery Method Room Air Positive well nourished, well developed and obese General Appearance ED: well developed and NAD Nutritional Appearance: obese HEENT Reports moist mucous membranes Neck supple and no JVD Resp normal respiratory effort and clear to auscultation bilaterally Cardio regular rate and regular rhythm GI non-tender and non-distended Palpation: soft Neuro oriented x3, CN's II-XII intact bilaterally and no sensory deficits noted Sensorium / Orientation: alert Motor Exam: strength 5/5 throughout Psych mental status grossly normal MDM MDM MDM Narrative Medical decision making narrative: Differential diagnosis includes hip fracture, dehydration, electrolyte abnormality, intracranial bleeding, urinary tract infection, and anemia. CT scan of the brain will be obtained to assess for intracranial bleeding. X-ray of the right femur and hip will be obtained to assess for fracture. Patient has a NIH score of 0. Do not feel this is from a stroke. CBC will be obtained to assess for leukocytosis and anemia. Basic metabolic profile will be obtained to assess for electrolyte abnormality and renal function. Urinalysis will be obtained to assess for urinary tract infection. Lab Data Attestation: I reviewed the patient's lab results. Lab results narrative: CBC was reviewed. There is a mild leukocytosis of 15.9. This is likely from the fall. Basic metabolic profile was reviewed and was essentially within normal limits. Urinalysis was reviewed. There is positive nitrites with a leukocyte esterase of 100. There is 2+ bacteria. There is 0-5 white blood cells noted. Labs: Laboratory Results - last 24 hr 06/12/23 06/12/23 20:20 21:12 WBC 15.9 H RBC 4.54 Hgb 12.8 Hct 41.0 MCV 90.3 MCH 28.2 MCHC 31.2 L RDW Std Deviation 48.2 H RDW Coeff of Gail 14.6 Plt Count 309 MPV 10.7 Immature Gran % (Auto) 0.600 Neut % (Auto) 86.2 H Lymph % (Auto) 5.0 L Coke % (Auto) 7.8 Eos % (Auto) 0.0 Baso % (Auto) 0.4 Absolute Neuts (auto) 13.7 H Absolute Lymphs (auto) 0.80 L Nucleated RBC % 0 Sodium 132 L Potassium 3.8 Chloride 99 Carbon Dioxide 25.0 Anion Gap 8 BUN 14 Creatinine 0.80 Estim Creat Clear Calc 65.91 Est GFR (MDRD) Af Amer 88 Est GFR (MDRD) Non-Af 73 BUN/Creatinine Ratio 17.5 Glucose 268 H Calcium 9.1 Urine Color Yellow Urine Clarity Clear Urine pH 6.0 Ur Specific [place] 1.015 Urine Protein 30 H Urine Glucose (UA) 50 H Urine Ketones 50 H Urine Occult Blood 150 H Urine Nitrite Positive H Urine Bilirubin Negative Urine Urobilinogen Normal Ur Leukocyte Esterase 100 H Urine RBC 0-5 SEEN Urine WBC 0-5 SEEN Ur Squamous Epith Cells 0-5 SEEN Urine Bacteria 2+ Urine Mucus 0 SEEN Radiography Diagnostic Testing: Clinical Impression(s) from Imaging Studies Brain CT 06/12/23 19:57 IMPRESSION: Chronic changes as described with no acute intracranial hemorrhage or space-occupying lesion. Electronically Signed: Calli Smith MD at 21:17 EST , Pelvis X-Ray 06/12/23 19:57 IMPRESSION: No acute osseous abnormality of the pelvis. Electronically Signed: Sina Guillory MD at 22:45 EST , Femur X-Ray 06/12/23 21:26 IMPRESSION: No acute osseous abnormality of the right femur. Electronically Signed: Sina Guillory MD at 22:44 EST , CT scan of the brain was obtained. There is no acute intracranial abnormality. This was interpreted by the radiologist and was also independently reviewed by myself. X-rays of the pelvis were obtained. There is 1 view. On my independent interpretation, there is no acute fracture or dislocation noted. Radiologist also interpreted the x-rays and agrees. X-rays of the right femur were obtained. There are 4 views. On my independent interpretation, there is no acute fracture or dislocation noted. The knee prosthesis was intact. Radiologist also interpreted the x-rays and agrees. Treatment and Re-Evaluation :: Patient was advised of her findings. Patient was complaining of a headache. Patient was initially ordered a dose of [place]. Patient does not want to take [place] and was only requesting Tylenol. Patient was given a dose of Tylenol. Patient was able to ambulate without difficulty. Patient was instructed to follow-up with her primary care physician. Patient was instructed to return if worse in any way. Patient understood and was agreeable with the plan. All questions were answered. Discharge Plan Triage Chief Complaint: General Illness ED Provider: Kerwin Kumar Dx/Rx/DC Orders Clinical Impression: Contusion of right hip and thigh, Fall Prescriptions: No Action calcitriol 0.5 MCG capsule 0.5 mcg PO DAILY Patient Comments: gabapentin 300 MG capsule 300 mg PO QHS Patient Comments: metformin 500 MG tablet 2,000 mg PO DAILY Patient Comments: take 1 tablet by mouth twice a day with meals oxybutynin chloride 10 MG tablet extended release 24hr 10 mg PO DAILY PRN PRN (Reason: overactive bladder) lidocaine HCl 1 APPLIC jelly 1 applic TP TID calcium carbonate-vitamin D3 1 EACH tablet 1 ea PO TID acetaminophen 500 MG tablet 500 mg PO QHS ascorbic acid (vitamin C) 500 MG tablet 500 mg PO DAILY hydrocodone-acetaminophen 1 EACH tablet 1 ea PO 4X/DAY PRN PRN (Reason: Pain Or Fever) cyanocobalamin (vitamin B-12) 1,000 MCG/ML solution 1,000 mcg IM Q30D multivitamin with minerals 1 EACH tablet 1 ea PO DAILY clobetasol-emollient 15 GM cream 1 applic TP QHS biotin 2,500 MCG capsule 2,500 mcg PO DAILY cetirizine 10 MG capsule 10 mg PO DAILY rivaroxaban 15 MG tablet 15 mg PO BID Qty: 42 0RF apixaban 5 MG tablet 5 mg PO BID Qty: 74 0RF Rx Instructions: 10 mg twice a day for the first week. Then 5 mg twice a day. tamsulosin [Flomax] 0.4 mg capsule 0.4 mg PO DAILY 14 Days Qty: 14 0RF morphine [MS Contin] 15 mg tablet extended release 15 mg PO TID PRN PRN (Reason: pain) 5 Days Qty: 15 0RF ondansetron 4 mg tablet,disintegrating 4 mg PO TID PRN PRN (Reason: nausea and vomiting) Qty: 21 0RF hydrocodone-acetaminophen [hydrocodone-acetaminophen] 5-325 mg tablet 1 tab PO Q4H PRN PRN (Reason: Pain) 3 Days Qty: 15 0RF ciprofloxacin HCl [ciprofloxacin HCl] 500 mg tablet 500 mg PO BID Qty: 20 0RF Primary Care Provider: Aria Helms Referrals: Aria Helms MD [Primary Care Provider] - 5-7 Days Disposition Disposition: Home, Self Care
--- NOTE | 2023-06-12 19:57 | CT_ITS ---
STUDY: CT BRAIN WITHOUT CONTRAST REASON FOR EXAM: Female, 83 years old. Head injury RADIATION DOSAGE (If Supplied By Facility): CTDIvol = ( 44.99 ) mGy, DLP = ( 829.85 ) mGycm TECHNIQUE: Transaxial CT imaging of the brain was performed without administration of intravenous contrast material. Individualized dose optimization techniques were used for this CT. COMPARISON: 02/26/2023. FINDINGS: Normal soft tissue structures. Normal calvarium. There is mild cerebral atrophy with widening of the extra-axial spaces and ventricular dilatation. There are areas of decreased attenuation within the white matter tracts of the supratentorial brain, consistent with microvascular disease changes. Normal basal ganglia and thalami. Normal brainstem. Normal cerebellum. There is no intracranial hemorrhage. There are no findings of an acute ischemic infarction. Normal visualized paranasal sinuses. CT/Brain/Head without Contrast IMPRESSION: Chronic changes as described with no acute intracranial hemorrhage or space-occupying lesion. Electronically Signed: Calli Smith MD at 21:17 EST ,
--- NOTE | 2023-06-12 19:57 | RAD_ITS ---
INDICATION: Injury/Pain EXAMINATION/TECHNIQUE: X-RAY - XR Pelvis 1 or 2 Views COMPARISON: None. FINDINGS: Single frontal view of the pelvis. BONES: Normal anatomic alignment without evidence of fracture or subluxation. No concerning bony lesion or abnormal sclerosis to suggest lesion. JOINTS: No significant degenerative change. SOFT TISSUES: Unremarkable. RAD/Pelvis 1 or 2 Views IMPRESSION: No acute osseous abnormality of the pelvis. Electronically Signed: Sina Guillory MD at 22:45 EST ,
--- OUTSIDE RECORDS SUMMARY | 2023-06-12 20:14 | XMS RPT_ITS | CCD ---
Author Name Unknown Address [address] [place] [address] Organization [facility] Care Team Providers Care Manager Vehicle Name Role Phone ALLISON LEHMAN Unavailable Unavailable TALAMPAS, GUILLAUME Unavailable Unavailable TALAMPAS, GUILLAUME Unavailable Unavailable ESEQUIEL MONTELONGO Referring Unavailable Guillaume Dominguez MD Primary Care Provider Guillaume Dominguez MD Primary Care Provider Guillaume Dominguez MD Primary Care Provider DILMA PATEL JR Admitting Unavaila ble JOSE HERRERA, DILMA WHITLOCK Attending Unavaila ble JOSE HERRERA, DILMA WHITLOCK Referring Unavaila ble TALAMPAS, GUILLAUME D Primary Care Unavailable JOSE HERRERA, DILMA WHITLOCK Attending Unavaila ble JOSE HERRERA, DILMA GENE Referring Unavaila ble TALAMPAS, GUILLAUME D Primary Care Unavailable DILMA PATEL JR Admitting Unavaila ble JOSE HERRERA, DILMA WHITLOCK Attending Unavaila ble GANOSMAR HERRERA, DILMA WHITLOCK Referring Unavaila ble TALAMPAS, GUILLAUME D Primary Care Unavailable ESEQUIEL MONTELONGO Admitting Unavailable TALAMPAS, GUILLAUME D Primary Care Unavailable ESEQUIEL MONTELONGO Attending Unavailable DILMA MENG Referring Unavailabl e TALAMPAS, GUILLAUME D Primary Care Unavailable DILMA MENG Referring Unavailabl e TALAMPAS, GUILLAUME D Primary Care Unavailable ESEQUIEL MONTELONGO Attending Unavailable ESEQUIEL MONTELONGO Admitting Unavailable TALAMPAS, GUILLAUME D Primary Care Unavailable ESEQUIEL MONTELONGO Attending Unavailable ESEQUIEL MONTELONGO Admitting Unavailable TALAMPAS, GUILLAUME D Primary Care Unavailable ESEQUIEL MONTELONGO Attending Unavailable TALAMPAS, GUILLAUME D Primary Care Unavailable ESEQUIEL MONTELOGNO Admitting Unavailable ESEQUIEL MONTELONGO Attending Unavailable TALAMPAS, GUILLAUME D Primary Care Unavailable ESEQUIEL MONTELONGO Admitting Unavailable TALAMPAS, GUILLAUME D Referring Unavailable DILMA MENG Attending Unavailabl e TALAMPAS, GUILLAUME D Primary Care Unavailable TALAMPAS, GUILLAUME D Attending Unavailable TALAMPAS, GUILLAUME D Primary Care Unavailable TALAMPAS, GUILLAUME D Primary Care Unavailable SU NASSAR Attending Unavailable TALAMPAS, GUILLAUME D Primary Care Unavailable TALAMPAS, GUILLAUME D Primary Care Unavailable GARCIA, ORALIA M Referring Unavailable TALAMPAS, GUILLAUME D Primary Care Unavailable SU NASSAR Attending Unavailable SU NASSAR Referring Unavailable DILMA PATEL Referring Unavailable TALAMPAS, GUILLAUME D Primary Care Unavailable TALAMPAS, GUILLAUME D Attending Unavailable TALAMPAS, GUILLAUME D Primary Care Unavailable COMFORT PATTERSON Referring Unavailable TALAMPAS, GUILLAUME D Primary Care Unavailable TALAMPAS, GUILLAUME D Primary Care Unavailable TALAMPAS, GUILLAUME D Primary Care Unavailable GARCIA, ORALIA M Referring Unavailable GARCIA, ORALIA M Attending Unavailable TALAMPAS, GUILLAUME D Primary Care Unavailable TALAMPAS, GUILLAUME D Primary Care Unavailable VEDA VITAL Attending Unavailable GARCIA, ORALIA M Referring Unavailable TALAMPAS, GUILLAUME D Primary Care Unavailable GARCIA, ORALIA M Referring Unavailable VITALVEDA Attending Unavailable GARCIA, ORALIA M Referring Unavailable TALAMPAS, GUILLAUME D Primary Care Unavailable VITALVEDA Attending Unavailable GARCIA, ORALIA M Referring Unavailable TALAMPAS, GUILLAUME D Primary Care Unavailable [facility] Attending Unavailable O'NEY, NHI Attending Unavailable TALAMPAS, GUILLAUME D Primary Care Unavailable AMODIO, JUANITA Referring Unavailable O'NEY, NHI Attending Unavailable TALAMPAS, GUILLAUME D Referring Unavailable TALAMPAS, GUILLAUME D Primary Care Unavailable O'NEY, NHI Attending Unavailable TALAMPAS, GUILLAUME D Primary Care Unavailable O'NEY, NHI Attending Unavailable TALAMPAS, GUILLAUME D Primary Care Unavailable GARCIA, ORALIA M Referring Unavailable TALAMPAS, GUILLAUME D Primary Care Unavailable [facility] Attending Unavailable GARCIA, ORALIA M Referring Unavailable TALAMPAS, GUILLAUME D Primary Care Unavailable AMODIO, JUANITA Referring Unavailable TALAMPAS, GUILLAUME D Primary Care Unavailable GARCIA, ORLAIA M Referring Unavailable DILMA PATEL Attending Unavailable DILMA PATEL Referring Unavailable TALAMPAS, UGILLAUME D Primary Care Unavailable DILMA PATEL Referring Unavailable TALAMPAS, GUILLAUME D Primary Care Unavailable TALAMPAS, GUILLAUME D Referring Unavailable TALAMPAS, GUILLAUME D Primary Care Unavailable JOSEFA CAPUTO Attending Unavailable TALAMPAS, GUILLAUME D Primary Care Unavailable TALAMPAS, GUILLAUME D Primary Care Unavailable DILMA MENG Referring Unavailabl e TALAMPAS, GUILLAUME D Primary Care Unavailable TALAMPAS, GUILLAUME D Primary Care Unavailable TALAMPAS, GUILLAUME D Primary Care Unavailable JUANITA WHARTON Referring Unavailable [facility] Attending Unavailable TALAMPAS, GUILLAUME D Primary Care Unavailable TALAMPAS, GUILLAUME D Primary Care Unavailable SHEWSU GOLDSTEIN Attending Unavailable SHEWMONSU Referring Unavailable TALAMPAS, GUILLAUME D Primary Care Unavailable JOSEFA CAPUTO Attending Unavailable TALAMPAS, GUILLAUME D Primary Care Unavailable TALAMPAS, GUILLAUME D Primary Care Unavailable TALAMPAS, GUILLAUME D Attending Unavailable TALAMPAS, GUILLAUME D Primary Care Unavailable TALAMPAS, GUILLAUME D Referring Unavailable TALAMPAS, GUILLAUME D Primary Care Unavailable TALAMPAS, GUILLAUME D Primary Care Unavailable JOSEFA CAPUTO Referring Unavailable TALAMPAS, GUILLAUME D Primary Care Unavailable TALAMPAS, GUILLAUME D Attending Unavailable TALAMPAS, GUILLAUME D Primary Care Unavailable TALAMPAS, GUILLAUME D Primary Care Unavailable TALAMPAS, GUILLAUME D Primary Care Unavailable ESEQUIEL MONTELONGO Attending Unavailable TALAMPAS, GUILLAUME D Primary Care Unavailable SHEWMONSU Attending Unavailable TALAMPAS, GUILLAUME D Primary Care Unavailable Allergies Allergy Classification Reported Allergen(s) Allergy Type Date of Onset Reaction(s) Facility (20 sources) atorvastatin; Translations: [ATORVASTATIN] Drug Allergy 5 [facility] Repository (20 sources) egg extract; Translations: [EGG] Drug Allergy 7 Diarrhea [facility] Repository (20 sources) erythromycin; Translations: [ERYTHROMYCIN] Drug Allergy 8 Myalgia [facility] Repository (20 sources) etodolac; Translations: [ETODOLAC] Drug Allergy 1 Contraindicatio n-Medical Surgical [facility] Repository (20 sources) exenatide; Translations: [EXENATIDE] Drug Allergy 7 [facility] Repository (20 sources) ezetimibe; Translations: [EZETIMIBE] Drug Allergy 5 [facility] Repository (20 sources) irbesartan; Translations: [IRBESARTAN] Drug Allergy 5 Swelling [facility] Repository (20 sources) niacin; Translations: [NIACIN (ANTIHYPERLIPIDE VERN)] Drug Allergy 5 [facility] Repository (20 sources) NSAIDs; Translations: [NSAIDS (NON-STEROIDAL ANTI-INFLAMMATOR Y DRUG)] Propensity to adverse reactions (disorder) 1 Other: See Comments [facility] Repository (20 sources) Penicillins; Translations: [PENICILLINS] Propensity to adverse reactions (disorder) 5 Rash [facility] Repository (20 sources) pravastatin; Translations: [PRAVASTATIN SODIUM] Drug Allergy 5 [facility] Repository (20 sources) rosuvastatin; Translations: [ROSUVASTATIN CALCIUM] Drug Allergy 5 [facility] Repository (20 sources) salicylic acid; Translations: [SALICYLATES] Drug Allergy 5 Anaphylaxis [facility] Repository (20 sources) simvastatin; Translations: [SIMVASTATIN] Drug Allergy 5 [facility] Repository (20 sources) Sulfonamides (Antibiotic); Translations: [SULFA (SULFONAMIDE ANTIBIOTICS)] Propensity to adverse reactions (disorder) 5 Rash [facility] Repository (6 sources) OTHER; Translations: [OTHER] Propensity to adverse reactions (disorder) 9 [facility] Repository (20 sources) metFORMIN; Translations: [METFORMIN] Drug Allergy 8 GI Upset [facility] Other [place] Repository (20 sources) Niacin; Translations: [NIACIN] Drug Allergy 5 Unknown [facility] Repository (20 sources) duoderm [Other] Propensity to adverse reactions 9 Rash [facility] Work Phone: (20 sources) ointments [Other] Propensity to adverse reactions 9 [facility] (20 sources) tape [Other] Propensity to adverse reactions 8 [facility] (20 sources) Cephalexin; Translations: [CEPHALEXIN] Drug Allergy 2 Rash, Diarrhea [facility] Work Phone: (20 sources) Adhesive agent; Translations: [ADHESIVE] Drug Allergy 2 Itching [facility] (20 sources) Aspirin; Translations: [ASPIRIN] Drug Allergy 2 Anaphylaxis [facility] (20 sources) HYDROcodone; Translations: [HYDROCODONE] Drug Allergy 3 Itching [facility] Work Phone: Medications Current Medications Medication Drug Class(es) Dates Sig (Normalized) Sig (Original) ciprofloxacin 500 mg oral tablet (14 sources) Quinolone Antimicrobial Start: 06-11-2022 End: 06-11-2022 ciprofloxacin HCl 500 mg tab(s) (CIPRO) Completed/Discontinued Medications Medication Drug Class(es) Dates Sig (Normalized) Sig (Original) acetaminophen 500 mg oral tablet (20 sources) Start: 05-06-2022 End: 05-06-2022 acetaminophen 1,000 mg tab(s) (TYLENOL) Problems Active Problems Problem Classification Problem Date Documented Da te Episodic/Chronic Anxiety disorders (20 sources) Anxiety state; Translations: [Generalized anxiety disorder] Onset: 07-28-2007 05-29-2019 Chronic Cardiac dysrhythmias (20 sources) Irregular heart beat; Translations: [Cardiac arrhythmia, unspecified] Onset: 11-10-2022 Chronic Complications of surgical procedures or medical care (20 sources) Post-surgical malabsorption; Translations: [Postsurgical malabsorption, not elsewhere classified] Onset: 07-19-2008 07-19-2008 Chronic Complications of surgical procedures or medical care (1 source) Drug-induced hypotension; Translations: [Hypotension due to drugs] 02-02-2023 Episodic Conditions associated with dizziness or vertigo (1 source) Lightheadedness; Translations: [Dizziness and giddiness] Episodic Crushing injury or internal injury (2 sources) Crush injury of right middle finger; Translations: [Crushing injury of right middle finger, initial encounter] Episodic Diabetes mellitus with complications (20 sources) Type 2 diabetes mellitus; 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] Onset: 10-16-2014 Chronic Diabetes mellitus without complication (1 source) Glycosuria; Translations: [Glycosuria] Episodic Disorders of lipid metabolism (20 sources) Hyperlipidemia; Translations: [Hyperlipidemia, unspecified] Onset: 01-20-2005 04-21-2015 Chronic Essential hypertension (2 sources) Essential hypertension; Translations: [Essential (primary) hypertension] Chronic Fracture of upper limb (1 source) Open fracture finger distal phalanx, tuft; Translations: [Displaced fracture of distal phalanx of unspecified finger, initial encounter for open fracture] Episodic Glaucoma (20 sources) Unspecified glaucoma; Translations: [Unspecified glaucoma] 04-02-2005 Chronic Immunizations and screening for infectious disease (4 sources) Needs influenza immunization; Translations: [Encounter for immunization] Episodic Inflammatory diseases of female pelvic organs (1 source) Vulvitis; Translations: [Subacute and chronic vulvitis] Episodic Malaise and fatigue (2 sources) Fatigue; Translations: [Chronic fatigue, unspecified] Onset: 05-18-2023 02-02-2023 Chronic Miscellaneous mental health disorders (20 sources) Psychological finding; Translations: [Psychological and behavioral factors associated with disorders or diseases classified elsewhere] Onset: 03-29-2007 03-29-2007 Chronic Mood disorders (1 source) Moderate major depression, single episode; Translations: [Major depressive disorder, single episode, moderate] Chronic Mycoses (1 source) Candidiasis of vulva; Translations: [Candidal vulvitis] Episodic Nausea and vomiting (1 source) Nausea; Translations: [Nausea] Episodic Nutritional deficiencies (20 sources) Vitamin D deficiency; Translations: [Vitamin D deficiency, unspecified] Onset: 01-25-2013 01-25-2013 Chronic Occlusion or stenosis of precerebral arteries (20 sources) Carotid artery occlusion; Translations: [Occlusion and stenosis of unspecified carotid artery] Onset: 03-09-2006 03-02-2007 Chronic Open wounds of extremities (1 source) Tear of skin; Translations: [Laceration without foreign body of left forearm, initial encounter] Episodic Other aftercare (1 source) Patient encounter status; Translations: [Encounter for therapeutic drug level monitoring] 02-02-2023 Episodic Other aftercare (1 source) Encounter for therapeutic drug level monitoring; Translations: [Encounter for therapeutic drug monitoring] Onset: 05-18-2023 Episodic Other and ill-defined heart disease (1 source) Diastolic dysfunction; Translations: [Other ill-defined heart diseases] Chronic Other fractures (1 source) Other fracture of unspecified lumbar vertebra, initial encounter for closed fracture; Translations: [Other fracture of unspecified lumbar vertebra, initial encounter for closed fracture (HCC)] Onset: 10-03-2018 Episodic Other gastrointestinal disorders (1 source) History of bypass of stomach; Translations: [Bariatric surgery status] Episodic Other inflammatory condition of skin (1 source) Itching of skin; Translations: [Pruritus, unspecified] Episodic Other injuries and conditions due to external causes (20 sources) Angioedema; Translations: [Angioneurotic edema, initial encounter] 04-02-2005 Episodic Other injuries and conditions due to external causes (1 source) Injury of finger of right hand; Translations: [Unspecified injury of right wrist, hand and finger(s), initial encounter] Episodic Other lower respiratory disease (9 sources) Dyspnea on exertion; Translations: [Shortness of breath] Episodic Other lower respiratory disease (4 sources) Chronic cough; Translations: [Chronic cough] Episodic Other nervous system disorders (1 source) Other chronic pain; Translations: [Chronic left SI joint pain] Onset: 03-26-2022 Chronic Other nutritional; endocrine; and metabolic disorders (20 sources) Severe obesity; Translations: [Morbid (severe) obesity due to excess calories] 08-21-2021 Chronic Other nutritional; endocrine; and metabolic disorders (2 sources) Hypoalbuminemia; Translations: [Other disorders of plasma-protein metabolism, not elsewhere classified] Chronic Other nutritional; endocrine; and metabolic disorders (10 sources) Obese class II; Translations: [Obesity, unspecified] Onset: 02-02-2023 02-02-2023 Chronic Other skin disorders (20 sources) Localized scleroderma; 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]] Onset: 08-18-2007 08-18-2007 Chronic Other skin disorders (20 sources) Lichen sclerosus et atrophicus; Translations: [Circumscribed scleroderma] Onset: 08-23-2009 05-26-2021 Chronic Other upper respiratory disease (20 sources) Chronic rhinitis; Translations: [Chronic rhinitis] Onset: 01-20-2005 01-20-2005 Chronic Residual codes; unclassified (3 sources) Memory impairment; Translations: [Other amnesia] Episodic Spondylosis; intervertebral disc disorders; other back problems (20 sources) Intervertebral disc disorder of cervical region with myelopathy; Translations: [Cervical disc disorder with myelopathy, unspecified cervical region] Onset: 04-11-2009 04-11-2009 Chronic Spondylosis; intervertebral disc disorders; other back problems (1 source) Spinal stenosis, lumbar region without neurogenic claudication; Translations: [Spinal stenosis of lumbar region, unspecified whether neurogenic claudication present] Onset: 10-03-2018 Unclassified (1 source) Unknown / UNK(Unknown) Onset: 09-08-2017 Unclassified (20 sources) Aortic valve sclerosis; 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] Onset: 07-09-2015 07-09-2015 Urinary tract infections (1 source) Acute urinary tract infection; Translations: [Urinary tract infection, site not specified] Episodic Past or Other Problems Problem Classification Problem Date Documented Da te Episodic/Chronic Abdominal hernia (20 sources) Incisional hernia; Translations: [Incisional hernia without obstruction or gangrene] Onset: 03-17-2019 03-17-2019 Episodic Allergic reactions (20 sources) Contact dermatitis; Translations: [Unspecified contact dermatitis, unspecified cause] Onset: 12-07-2007 12-07-2007 Episodic Biliary tract disease (20 sources) Gallstone; Translations: [Calculus of gallbladder without cholecystitis without obstruction] Onset: 04-09-2005 04-09-2005 Episodic Calculus of urinary tract (7 sources) Kidney stone; Translations: [Calculus of kidney] Onset: 05-11-2022 Episodic Deficiency and other anemia (20 sources) Pernicious anemia; Translations: [Vitamin B12 deficiency anemia due to intrinsic factor deficiency] Onset: 04-13-2007 05-29-2019 Episodic Genitourinary symptoms and ill-defined conditions (3 sources) Increased frequency of urination; Translations: [Frequency of micturition] Onset: 06-18-2022 Episodic Heart valve disorders (20 sources) Heart murmur; Translations: [Cardiac murmur, unspecified] Onset: 06-21-2014 06-21-2014 Episodic Malaise and fatigue (6 sources) Fatigue; Translations: [Other fatigue] Onset: 09-08-2022 Episodic Nonspecific chest pain (20 sources) Chest pain, unspecified; Translations: [Atypical chest pain] Onset: 08-08-2014 08-08-2014 Episodic Nutritional deficiencies (11 sources) Iron deficiency; Translations: [Iron deficiency] Onset: 09-08-2022 Episodic Other acquired deformities (20 sources) Lumbar spondylolisthesis; Translations: [Spondylolisthesis, lumbar region] Onset: 10-20-2017 10-21-2017 Episodic Other acquired deformities (2 sources) Spondylolisthesis, lumbar region; Translations: [Spondylolisthesis of lumbar region] Onset: 10-21-2017 Episodic Other bone disease and musculoskeletal deformities (20 sources) Disorder of skeletal system; Translations: [Disorder of bone, unspecified] Onset: 04-20-2008 05-26-2021 Episodic Other connective tissue disease (20 sources) Soft tissue lesion of shoulder region; Translations: [Bursopathy, unspecified] Onset: 08-12-2010 08-12-2010 Episodic Other connective tissue disease (20 sources) Trochanteric bursitis of left hip; Translations: [Trochanteric bursitis, left hip] Onset: 12-20-2020 12-20-2020 Episodic Other connective tissue disease (20 sources) Muscle weakness; Translations: [Muscle weakness (generalized)] Onset: 12-20-2020 12-20-2020 Episodic Other fractures (20 sources) Open fracture of first lumbar vertebra; Translations: [Wedge compression fracture of first lumbar vertebra, subsequent encounter for fracture with routine healing] Onset: 09-21-2018 08-21-2021 Episodic Other gastrointestinal disorders (20 sources) H/O: GIT by-pass; Translations: [Bariatric surgery status] Onset: 04-21-2015 04-21-2015 Episodic Other inflammatory condition of skin (20 sources) Pruritus of skin; Translations: [Pruritus, unspecified] Onset: 12-07-2007 12-07-2007 Episodic Other lower respiratory disease (2 sources) Other forms of dyspnea; Translations: [FIELD (dyspnea on exertion)] Onset: 01-11-2023 Episodic Other non-traumatic joint disorders (20 sources) Shoulder joint pain; Translations: [Pain in unspecified shoulder] Onset: 04-18-2013 04-18-2013 Episodic Other non-traumatic joint disorders (20 sources) Hip pain; Translations: [Pain in left hip] Onset: 12-20-2020 12-20-2020 Episodic Other screening for suspected conditions (not mental disorders or infectious disease) (6 sources) Protein level - finding; Translations: [Other specified abnormal findings of blood chemistry] Onset: 09-08-2022 Episodic Pulmonary heart disease (20 sources) Pulmonary embolism; Translations: [Multiple subsegmental pulmonary emboli without acute cor pulmonale] Onset: 04-10-2019 04-10-2019 Episodic Spondylosis; intervertebral disc disorders; other back problems (20 sources) Thoracic radiculopathy; Translations: [Radiculopathy, thoracic region] Onset: 04-09-2015 Episodic Sprains and strains (20 sources) Lumbar sprain; Translations: [Sprain of ligaments of lumbar spine, initial encounter] Onset: 07-15-2012 07-15-2012 Episodic Results Test Name Value Interpretation Reference Range Facil ity Vital Signs Date Time Vital Sign Value Performing Clinician Faci lity 05-14-2023 10:54-0500 Body temperature 98.71 [degF] Guillaume Dominguez MD Work Phone: [facility] 05-14-2023 10:54-0500 Body weight 96.62 kg Guillaume Dominguez MD Work Phone: [facility] 05-14-2023 10:54-0500 Diastolic blood pressure 68 mm[Hg] Guillaume Dominguez MD Work Phone: [facility] 05-14-2023 10:54-0500 Heart rate 74 /min Guillaume Dominguez MD Work Phone: [facility] 05-14-2023 10:54-0500 Respiratory rate 18 /min Guillaume Dominguez MD Work Phone: [facility] 05-14-2023 10:54-0500 SaO2% (BldA) [Mass fraction] 97 % Guillaume Dominguez MD Work Phone: [facility] 05-14-2023 10:54-0500 Systolic blood pressure 110 mm[Hg] Guillaume Dominguez MD Work Phone: [facility] 02-04-2023 13:43-0400 Diastolic blood pressure 80 mm[Hg] Mi Nurse Work Phone: [facility] 02-04-2023 13:43-0400 Heart rate 74 /min Mi Nurse Work Phone: [facility] 02-04-2023 13:43-0400 Systolic blood pressure 131 mm[Hg] Mi Nurse Work Phone: [facility] 02-02-2023 10:57-0400 Diastolic blood pressure 60 mm[Hg] Josefa Flynn MINE TECHNICIAN.TOOL DISTRIBUTOR Work Phone: [facility] 02-02-2023 10:57-0400 Heart rate 102 /min Josefa Flynn MINE TECHNICIAN.TOOL DISTRIBUTOR Work Phone: [facility] 02-02-2023 10:57-0400 SaO2% (BldA) [Mass fraction] 98 % Josefa Flynn MINE TECHNICIAN.TOOL DISTRIBUTOR Work Phone: [facility] 02-02-2023 10:57-0400 Systolic blood pressure 80 mm[Hg] Josefa Flynn MINE TECHNICIAN.TOOL DISTRIBUTOR Work Phone: [facility] 01-11-2023 08:43-0400 Body height 162.6 cm Dilma Meng DO Work Phone: [facility] 01-11-2023 08:43-0400 Body weight 95.84 kg Dilma Krusealfitgilbert DO Work Phone: [facility] 01-11-2023 08:43-0400 Diastolic blood pressure 58 mm[Hg] Dilma Walkerfitgilbert DO Work Phone: [facility] 01-11-2023 08:43-0400 Heart rate 77 /min Dilma Amalfitgilbert DO Work Phone: [facility] 01-11-2023 08:43-0400 SaO2% (BldA) [Mass fraction] 98 % Dilma Amalfitgilbert DO Work Phone: [facility] 01-11-2023 08:43-0400 Systolic blood pressure 96 mm[Hg] Dilma Walkerfitgilbert DO Work Phone: [facility] 12-30-2022 09:45-0400 Body weight 97.61 kg Su Nassar MD Work Phone: [facility] 12-30-2022 09:45-0400 Diastolic blood pressure 85 mm[Hg] Su Nassar MD Work Phone: [facility] 12-30-2022 09:45-0400 Heart rate 80 /min Su Nassar MD Work Phone: [facility] 12-30-2022 09:45-0400 Systolic blood pressure 147 mm[Hg] Su Nassar MD Work Phone: [facility] 10-27-2022 13:34-0400 Diastolic blood pressure 78 mm[Hg] Josefa Flynn MINE TECHNICIAN.TOOL DISTRIBUTOR Work Phone: [facility] 10-27-2022 13:34-0400 Systolic blood pressure 116 mm[Hg] Josefa Flynn MINE TECHNICIAN.TOOL DISTRIBUTOR Work Phone: [facility] 10-27-2022 13:08-0400 Heart rate 86 /min Josefa Flynn MINE TECHNICIAN.TOOL DISTRIBUTOR Work Phone: [facility] 10-27-2022 13:08-0400 SaO2% (BldA) [Mass fraction] 96 % Joesfa Flynn MINE TECHNICIAN.TOOL DISTRIBUTOR Work Phone: [facility] 09-14-2022 10:33-0400 Heart rate 77 /min Esequiel Montelongo MD Work Phone: [facility] 09-14-2022 10:33-0400 SaO2% (BldA) [Mass fraction] 97 % Esequiel Montelongo MD Work Phone: [facility] 08-15-2022 11:28-0400 Body weight 108.86 kg Guillaume Dominguez MD Work Phone: [facility] 08-15-2022 11:28-0400 Diastolic blood pressure 72 mm[Hg] Guillaume Dominguez MD Work Phone: [facility] 08-15-2022 11:28-0400 Heart rate 101 /min Guillaume Dominguez MD Work Phone: [facility] 08-15-2022 11:28-0400 Respiratory rate 20 /min Guillaume Dominguez MD Work Phone: [facility] 08-15-2022 11:28-0400 SaO2% (BldA) [Mass fraction] 99 % Guillaume Dominguez MD Work Phone: [facility] 08-15-2022 11:28-0400 Systolic blood pressure 126 mm[Hg] Guillaume Dominguez MD Work Phone: [facility] 07-07-2022 10:52-0500 Body temperature 96.4 [degF] Guillaume Dominguez MD Work Phone: [facility] 07-07-2022 10:52-0500 Body weight 106.59 kg Guillaume Dominguez MD Work Phone: [facility] 07-07-2022 10:52-0500 Diastolic blood pressure 78 mm[Hg] Guillaume Dominguez MD Work Phone: [facility] 07-07-2022 10:52-0500 Heart rate 61 /min Guillaume Dominguez MD Work Phone: [facility] 07-07-2022 10:52-0500 Respiratory rate 18 /min Guillaume Dominguez MD Work Phone: [facility] 07-07-2022 10:52-0500 SaO2% (BldA) [Mass fraction] 95 % Guillaume Dominguez MD Work Phone: [facility] 07-07-2022 10:52-0500 Systolic blood pressure 118 mm[Hg] Guillaume Dominguez MD Work Phone: [facility] 06-11-2022 11:21-0500 Body height 167.6 cm Dilma Patel Jr., MD Work Phone: [facility] 06-11-2022 11:21-0500 Body weight 108.86 kg Dilma Patel Jr., MD Work Phone: [facility] 06-11-2022 11:21-0500 Diastolic blood pressure 69 mm[Hg] Dilma Patel Jr., MD Work Phone: [facility] 06-11-2022 11:21-0500 Systolic blood pressure 122 mm[Hg] Dilma Patel Jr., MD Work Phone: [facility] 05-12-2022 17:18-0500 Body weight 109.32 kg Guillaume Dominguez MD Work Phone: [facility] 05-12-2022 17:18-0500 Diastolic blood pressure 72 mm[Hg] Guillaume Dominguez MD Work Phone: [facility] 05-12-2022 17:18-0500 Heart rate 78 /min Guillaume Dominguez MD Work Phone: [facility] 05-12-2022 17:18-0500 SaO2% (BldA) [Mass fraction] 100 % Guillaume Dominguez MD Work Phone: [facility] 05-12-2022 17:18-0500 Systolic blood pressure 118 mm[Hg] Guillaume Dominguez MD Work Phone: [facility] 05-06-2022 15:42-0500 Body temperature 98.29 [degF] Janae Praisler-Wood MINE TECHNICIAN.TOOL DISTRIBUTOR Work Phone: [facility] 05-06-2022 15:42-0500 Body weight 111.77 kg Janae Praisler-Wood MINE TECHNICIAN.TOOL DISTRIBUTOR Work Phone: [facility] 05-06-2022 15:42-0500 Diastolic blood pressure 78 mm[Hg] Janae Praisler-Wood MINE TECHNICIAN.TOOL DISTRIBUTOR Work Phone: [facility] 05-06-2022 15:42-0500 Heart rate 105 /min Janae Praisler-Wood MINE TECHNICIAN.TOOL DISTRIBUTOR Work Phone: [facility] 05-06-2022 15:42-0500 Respiratory rate 30 /min Janae Praisler-Wood MINE TECHNICIAN.TOOL DISTRIBUTOR Work Phone: [facility] 05-06-2022 15:42-0500 SaO2% (BldA) [Mass fraction] 98 % Janae Praisler-Wood MINE TECHNICIAN.TOOL DISTRIBUTOR Work Phone: [facility] 05-06-2022 15:42-0500 Systolic blood pressure 110 mm[Hg] Janae Sandoval MINE TECHNICIAN.TOOL DISTRIBUTOR Work Phone: [facility] 04-28-2022 09:40-0500 Body height 165.1 cm Respiratory Wstr Work Phone: [facility] 04-28-2022 09:40-0500 Body weight 112.04 kg Respiratory Wstr Work Phone: [facility] 04-28-2022 09:40-0500 Heart rate 62 /min Respiratory Wstr Work Phone: [facility] 04-28-2022 09:40-0500 Respiratory rate 16 /min Respiratory Wstr Work Phone: [facility] 04-28-2022 09:40-0500 SaO2% (BldA) [Mass fraction] 97 % Respiratory Wstr Work Phone: [facility] 04-27-2022 13:37-0500 Body weight 112.04 kg Guillaume Dominguez MD Work Phone: [facility] 04-27-2022 13:37-0500 Diastolic blood pressure 82 mm[Hg] Guillaume Dominguez MD Work Phone: [facility] 04-27-2022 13:37-0500 Heart rate 88 /min Guillaume Dominguez MD Work Phone: [facility] 04-27-2022 13:37-0500 SaO2% (BldA) [Mass fraction] 97 % Guillaume Dominguez MD Work Phone: [facility] 04-27-2022 13:37-0500 Systolic blood pressure 138 mm[Hg] uGillaume Dominguez MD Work Phone: [facility] 03-11-2022 09:17-0400 Body height 167.6 cm Oralia Garcia MINE TECHNICIAN.TOOL DISTRIBUTOR Work Phone: [facility] 03-11-2022 09:17-0400 Body weight 112.63 kg Oralia Garcia MINE TECHNICIAN.TOOL DISTRIBUTOR Work Phone: [facility] 03-11-2022 09:17-0400 Heart rate 92 /min Oralia Garcia MINE TECHNICIAN.TOOL DISTRIBUTOR Work Phone: [facility] 03-11-2022 09:17-0400 SaO2% (BldA) [Mass fraction] 96 % Oralia Garcia MINE TECHNICIAN.TOOL DISTRIBUTOR Work Phone: [facility] 03-04-2022 15:19-0400 Diastolic blood pressure 77 mm[Hg] Radha Walters MD Work Phone: [facility] 03-04-2022 15:19-0400 Heart rate 103 /min Radha Walters MD Work Phone: [facility] 03-04-2022 15:19-0400 Respiratory rate 18 /min Radha Walters MD Work Phone: [facility] 03-04-2022 15:19-0400 SaO2% (BldA) [Mass fraction] 96 % Radha Walters MD Work Phone: [facility] 03-04-2022 15:19-0400 Systolic blood pressure 107 mm[Hg] Radha Walters MD Work Phone: [facility] 02-10-2022 14:58-0400 Body height 165.1 cm Guillaume Dominguez MD Work Phone: [facility] 02-10-2022 14:58-0400 Body weight 111.58 kg Guillaume Dominguez MD Work Phone: [facility] 02-10-2022 14:58-0400 Diastolic blood pressure 68 mm[Hg] Guillaume Dominguez MD Work Phone: [facility] 02-10-2022 14:58-0400 Heart rate 82 /min Guillaume Dominguez MD Work Phone: [facility] 02-10-2022 14:58-0400 Systolic blood pressure 112 mm[Hg] Guillaume Dominguez MD Work Phone: [facility] 01-19-2022 14:43-0400 Body temperature 98.71 [degF] Comfort Patterson MINE TECHNICIAN.TIME STUDY CLERK Work Phone: [facility] 01-19-2022 14:43-0400 Body weight 112.49 kg Comfort Patterson MINE TECHNICIAN.TIME STUDY CLERK Work Phone: [facility] 01-19-2022 14:43-0400 Diastolic blood pressure 64 mm[Hg] Comfort Patterson MINE TECHNICIAN.TIME STUDY CLERK Work Phone: [facility] 01-19-2022 14:43-0400 Heart rate 72 /min Comfort Patterson MINE TECHNICIAN.TIME STUDY CLERK Work Phone: [facility] 01-19-2022 14:43-0400 Respiratory rate 24 /min Comfort Patterson MINE TECHNICIAN.TIME STUDY CLERK Work Phone: [facility] 01-19-2022 14:43-0400 SaO2% (BldA) [Mass fraction] 97 % Comfort Patterson MINE TECHNICIAN.TIME STUDY CLERK Work Phone: [facility] 01-19-2022 14:43-0400 Systolic blood pressure 112 mm[Hg] Comfort Patterson MINE TECHNICIAN.TIME STUDY CLERK Work Phone: [facility] 12-17-2021 14:14-0400 Body temperature 96.69 [degF] Sasha Xavi MINE TECHNICIAN.TOOL DISTRIBUTOR Work Phone: [facility] 12-17-2021 14:14-0400 Body weight 114.49 kg Sasha Xavi MINE TECHNICIAN.TOOL DISTRIBUTOR Work Phone: [facility] 12-17-2021 14:14-0400 Diastolic blood pressure 82 mm[Hg] Sasha Xavi MINE TECHNICIAN.TOOL DISTRIBUTOR Work Phone: [facility] 12-17-2021 14:14-0400 Heart rate 90 /min Sasha Xavi MINE TECHNICIAN.TOOL DISTRIBUTOR Work Phone: [facility] 12-17-2021 14:14-0400 Respiratory rate 20 /min Sasha Xavi MINE TECHNICIAN.TOOL DISTRIBUTOR Work Phone: [facility] 12-17-2021 14:14-0400 SaO2% (BldA) [Mass fraction] 97 % Sasha Gallocandie WORRELL.TOOL DISTRIBUTOR Work Phone: [facility] 12-17-2021 14:14-0400 Systolic blood pressure 130 mm[Hg] Sasha Xavi WORRELL.TOOL DISTRIBUTOR Work Phone: [facility] 11-03-2021 10:33-0400 Body height 167.6 cm Gamaliel Alegre MD Work Phone: [facility] 11-03-2021 10:33-0400 Body weight 113.63 kg Gamaliel Alegre MD Work Phone: [facility] 11-03-2021 10:33-0400 Diastolic blood pressure 86 mm[Hg] Gamaliel Alegre MD Work Phone: [facility] 11-03-2021 10:33-0400 Heart rate 81 /min Gamaliel Alegre MD Work Phone: [facility] 11-03-2021 10:33-0400 SaO2% (BldA) [Mass fraction] 98 % Gamaliel Alegre MD Work Phone: [facility] 11-03-2021 10:33-0400 Systolic blood pressure 124 mm[Hg] Gamaliel Alegre MD Work Phone: [facility] 10-03-2021 14:32-0400 Body weight 112.95 kg Iban Soto MD Work Phone: [facility] 10-03-2021 14:32-0400 Diastolic blood pressure 68 mm[Hg] Iban Soto MD Work Phone: [facility] 10-03-2021 14:32-0400 Heart rate 60 /min Iban Soto MD Work Phone: [facility] 10-03-2021 14:32-0400 Respiratory rate 20 /min Iban Soto MD Work Phone: [facility] 10-03-2021 14:32-0400 SaO2% (BldA) [Mass fraction] 96 % Iban Soto MD Work Phone: [facility] 10-03-2021 14:32-0400 Systolic blood pressure 126 mm[Hg] Iban Soto MD Work Phone: [facility] 08-22-2021 14:29-0400 Body weight 114.76 kg Su Nassar MD Work Phone: [facility] 08-22-2021 14:29-0400 Diastolic blood pressure 74 mm[Hg] Su Nassar MD Work Phone: [facility] 08-22-2021 14:29-0400 Heart rate 55 /min Su Nassar MD Work Phone: [facility] 08-22-2021 14:29-0400 Systolic blood pressure 112 mm[Hg] Su Nassar MD Work Phone: [facility] Encounters Encounter Date Encounter Type Care Provider Facility Start: 06-04-2023 End: 06-04-2023 ambulatory GUILLAUME Melody DOMINGUEZ Facility:[facility] Start: 05-18-2023 End: 05-19-2023 ambulatory GUILLAUME D SOTEROAMPJULIANNE Facility:[facility] Start: 05-14-2023 End: 05-14-2023 ambulatory GUILLAUME D TALAMPJULIANNE Facility:[facility] Start: 05-14-2023 End: 05-14-2023 Office outpatient visit 25 minutes Guillaume Dominguez MD Work Phone: [facility] Procedures Date Procedure Procedure Detail Performing Clinician Start: 05-14-2023 [employer] COVID-19 VACCINE (2022- SEASON) AGE 12+ YR Guillaume Dominguez MD Work Phone: Start: 02-10-2023 Echocardiography GUILLAUME DOMINGUEZ Start: 02-02-2023 INFLUENZA VACCINE, PRSV FREE, AGE 65+ YR, HIGH DOSE, QUADRIVALENT (FLUZONE HIGH-DOSE) Josefa Caputo APRN.CNP Work Phone: Start: 01-28-2023 Myocardial spect multiple studies Dilma Meng DO Work Phone: Start: 01-11-2023 Ecg routine ecg w/least 12 lds i&r only [facility] Provider Start: 12-30-2022 Follow-up visit Follow Up SU NASSAR Start: 12-30-2022 Hemoglobin A1c/Hemoglobin.total in Blood Su Nassar MD Work Phone: Start: 09-23-2022 Radiologic exam abdomen 1 view Dilma Patel MD Work Phone: Start: 08-15-2022 Ecg routine ecg w/least 12 lds i&r only [facility] Provider Start: 06-11-2022 Urnls dip stick/tablet rgnt auto w/o microscopy Dilma Patel MD Work Phone: Start: 04-28-2022 Brncdilat rspse spmtry pre&post-brncdilat admn Guillaume Dominguez MD Work Phone: Start: 03-04-2022 Culture fngi mold/yeast prsmptv oth xcpt blood Sue Villarreal MD Work Phone: Start: 03-04-2022 EXTRA SWAB CONTAINER PERFORMABLE Radha Walters MD Work Phone: Start: 03-04-2022 LAB EXTRA TUBES Radha Walters MD Work Phone: Start: 03-02-2022 [employer] COVID-19 BIVALENT BOOSTER VACCINE, AGE 12+ YR Comfort Patterson MINE TECHNICIAN.TIME STUDY CLERK Work Phone: Start: 02-10-2022 INFLUENZA SEASONAL QUADRIVALENT HIGH DOSE AGE 65+ Guillaume Dominguez MD Work Phone: Start: 12-17-2021 Gluc bld gluc mntr dev cleared fda spec home use [facility] Provider Start: 12-17-2021 Urnls dip stick/tablet rgnt auto w/o microscopy Jennifer Brian PA-C Work Phone: Start: 02-10-2021 Adult depression screening assessment Su Nassar MD Work Phone: Start: 04-21-2015 History of gastrointestinal tract bypass History of Jordin-en-Y gastric bypass Guillaume Dominguez MD Work Phone: Plan of Treatment Date Care Activity Detail Author Start: 02-03-2024 ANNUAL PCP TEAM CATALOGUE COMPILER ADRIAN DISEASE VISIT ANNUAL PCP TEAM CHRONIC DISEASE VISIT [facility] Start: 02-03-2024 BP CONTROLLED (<130/80) BP CONTROLLE D (<130/80) [facility] Start: 01-12-2024 BP CONTROLLED (<130/80) BP CONTROLLE D (<130/80) [facility] Start: 11-28-2023 ANNUAL PCP TEAM CATALOGUE COMPILER ADRIAN DISEASE VISIT ANNUAL PCP TEAM CHRONIC DISEASE VISIT [facility] Start: 11-28-2023 SHINGRIX VACCINE (2 of 3) SHINGRIX V ACCINE (2 of 3) [facility] Immunizations Immunization Date Immunization Notes Care Provider Fa herson 05-14-2023 COVID-19 vaccine, ag e 12+ yr, season (PFIZER-BIONTECH) Guillaume Dominguez MD Work Phone: [facility] 02-02-2023 influenza (HD-IIV4) vaccine, age 65+ yr, high dose, quadrivalent, PF (FLUZONE HIGH-DOSE) Josefa Caputo APRN.TOOL DISTRIBUTOR Work Phone: [facility] Work Phone: 03-02-2022 COVID-19 booster vaccine, age 12+ yr, bivalent (PFIZER-BIONTECH) [facility] Nurse Work Phone: [facility] Work Phone: 02-10-2022 influenza, high-dose , quadrivalent vaccine (FLUZONE HIGH DOSE QUADRIVALENT) [facility] Nurse Work Phone: [facility] Work Phone: 04-14-2021 COVID-19 vaccine, ag e 12+ yr (PFIZER-BIONTECH - PURPLE TOP) Su Nassar MD Work Phone: [facility] Work Phone: 03-03-2021 influenza, high-dose , quadrivalent vaccine (FLUZONE HIGH DOSE QUADRIVALENT) Su Nassar MD Work Phone: [facility] Work Phone: 08-01-2020 COVID-19 vaccine, ag e 12+ yr (PFIZER-BIONTECH - PURPLE TOP) Su Nassar MD Work Phone: [facility] Work Phone: 07-11-2020 COVID-19 vaccine, ag e 12+ yr (PFIZER-BIONTECH - PURPLE TOP) Su Nassar MD Work Phone: [facility] Work Phone: 03-07-2020 influenza, high-dose , quadrivalent vaccine (FLUZONE HIGH DOSE QUADRIVALENT) Su Nassar MD Work Phone: [facility] Work Phone: 02-25-2019 influenza, high dose seasonal, preservative-free Su Nassar MD Work Phone: [facility] 03-01-2018 influenza, high dose seasonal, preservative-free Su Nassar MD Work Phone: [facility] Work Phone: 03-03-2017 influenza, high dose seasonal, preservative-free Su Nassar MD Work Phone: [facility] 10-09-2016 tetanus and diphther ia toxoids, adsorbed, preservative free, for adult use (5 Lf of tetanus toxoid and 2 Lf of diphtheria toxoid) Su Nassar MD Work Phone: [facility] Work Phone: 09-01-2016 pneumococcal conjuga te vaccine, 13 valent Su Nassar MD Work Phone: [facility] 04-08-2016 influenza, high dose seasonal, preservative-free Su Nassar MD Work Phone: [facility] Work Phone: 04-09-2015 influenza, high dose seasonal, preservative-free Su Nassar MD Work Phone: [facility] 01-25-2013 pneumococcal polysaccharide vaccine, 23 valent Su Nassar MD Work Phone: [facility] 09-30-2012 zoster vaccine, live Su chapman MD Work Phone: [facility] Work Phone: 06-04-2005 influenza virus vacc ine, unspecified formulation Su Nassar MD Work Phone: [facility] Work Phone: Payers Date Payer Category Payer Medicare [id number] 2017 Medicare HU[employer]NA MEDICARE HU[employer] GOLD PLUS [id number] 2017-Present [id number] [place] [id number] HMO [id number] 2017 Private Health Insurance [id number] Social History Date Type Detail Facility Start: 11-25-2010 Tobacco smoking stat [facility] Never smoked tobacco [facility] Start: 08-22-2021 End: 05-14-2023 Alcohol intake Current non-drinker of alcohol (finding) [facility] Start: 1940 Sex Assigned At Not on file [facility] Start: 08-11-2021 End: 04-07-2022 Exposure to SARS-CoV-2 (event) Not sure [facility] Work Phone: Start: 09-28-2021 End: 10-08-2021 Exposure to SARS-CoV-2 (event) Unable to assess [facility] Work Phone: Start: 11-25-2010 Tobacco use and exposure Smokeless tobacco non-user [facility] Work Phone: Start: 1940 Sex Assigned At Female C [facility] Start: 10-05-2022 End: 11-10-2022 History of Social function [facility] Work Phone: Start: 10-05-2022 End: 11-10-2022 Tobacco use panel [facility] Work Phone: Adult Depression Screening Assessment 6 [facility] Work Phone: Medical Equipment Procedure Code Equipment Code Equipment Origin al Text Equipment Identifier Dates [id number] Start: 11-09-2016 Clinical Notes 01-05-2019 to 06-04-2023 Guillaume Dominguez MD - 05/14/2023 11:24 AM ESTNing Mckeon LPN - 05/04/2023 1:25 PM ESTPatient Su Crain MD - 03/30/2023 7:40 AM EDTNing Mckeon LPN - 03/04/2023 1:30 PM EDT Note Date & Type Note Facility 06-04-2023 Note [facility] 05-14-2023 Note [facility] 05-14-2023 History of Present illness Narrative This note was created using [employer]. Subjective Miriam Davenport is a 83 year old female. Patient presents with: Established Patient: Memory issues. SUBJECTIVE: Miriam Davenport is a 83 year old year old lady here today for follow up appointment for review of medical conditions. present. Daughter on 's mobile phone too. She states short term memory is an issue. Forgets what blood sugars before writes it down. Daughter notes that does not recall what was done that day or what was discussed at doctor's appointments. Both daughters noted short term memory problems. Not sure if took meds. Also discussed that she does not want to use CPAP. Has had diagnosis of ASIM. Dates back to at least 2002 (Dr. Nassar' progress note 01/15/2003--noted was not tolerated CPAP and was to follow up with Dr. Gonzalez) Working on writing things down on notepad. 3 mg melatonin helping so sleeping a lot better. Just past 5 to 6 months per daughter but 1 to 2 weeks per patient. (patient states that awake 3 to 4 times a night but could be because up every 2 hour to pee) Limiting coffee. Also avoiding naps in the day. Coffee late in PM threw off sleep. Does not like decaf. Saw Dr. Reina--?problem that needed addressed.Pressure behind eyes. Started on drops. Sugars running well. 130 to 160s. No lows. Just on Mounjaro. Has lost a lot of weight, from September 2020 255 down to 211 to 213 pounds sine December 2022. Patient states she wants to get HgA1C down to [address] Nassar recommends HgA1C 7.0 range and I discussed that I agree with him, especially since she used to have problem with lows. Concerns about cough. Throat clearing really frequent as noted by . Morning and evening, sometimes in afternoon. Daughter thought was just in AM. Postnasal drip. Throat dry. Tongue sticks to roof of mouth. Knows needs to drink more water. Back and hip are doing great--no pain now. 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 Contact dermatitis and other eczema, due to unspecified cause Grade I diastolic dysfunction Irregular heart beat Kidney stone Lichen 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 per [facility] outside facility Apr 1997 MORBID OBESITY 08/18/2007 Obstructive sleep apnea Sleep study 2003 Occlusion and stenosis of carotid artery without mention of cerebral infarction 03/09/2006 mild stenosis shown on u/s at [facility] u/s repeated 02/02/07 with no change Open fracture of tuft of distal phalanx of finger 05/06/2022 PAC (premature atrial contraction) Pulmonary embolism (HCC) Pure hypercholesterolemia Type II or unspecified type diabetes mellitus with renal manifestations, uncontrolled(250.42) Unspecified glaucoma(365.9) Unspecified pruritic disorder Current Outpatient Medications Medication Sig oxybutynin ER (DITROPAN XL) 10 mg 24 hr tablet take 1 tablet by mouth once daily if needed for OVERACTIVE BLADDER fluconazole (DIFLUCAN) 200 mg tablet TAKE 1 TABLET 3x per week clobetasol (TEMOVATE) 0.05 % cream 3x per day for 2 weeks and then twice daily thereafter chlorhexidine (HIBICLENS) 4 % external liquid Wash genitale area once a day for infectious vulvitis blood sugar diagnostic (ACCU-CHEK GUIDE TEST STRIPS) test strip 1 Strip three times daily. Use as instructed DX: E11.42 Lancets lancets Test blood sugar(s) 3 times daily. Dx: Other DM Code E11.42 Insulin: No DULoxetine (CYMBALTA) 20 mg capsule take 1 capsule by mouth once daily tirzepatide (MOUNJARO) 2.5 mg/0.5 mL pen injector Inject 2.5 mg subcutaneously one time a week. apixaban (ELIQUIS) 5 mg tab(s) Take 1 tablet by mouth twice daily. clindamycin (CLEOCIN) 300 mg capsule take 2 capsules by mouth 1 hour prior to appointment blood sugar diagnostic (ACCU-CHEK POLY PLUS TEST STRP) test strip Check sugars 3 times daily ferrous sulfate 325 mg (65 mg iron) tablet Take 1 tablet by mouth once daily. diphenhydramine HCl (BENADRYL ORAL) Take 1 tablet by mouth as needed (At bedtime). cholecalciferol, vitamin D3, (VITAMIN D3 ORAL) Take by mouth once daily. acetaminophen (TYLENOL) 500 mg tablet Take 500 mg by mouth daily at bedtime. COMPOUNDED PRESCRIPTION ONE TOUCH ULTRA 2 TEST STRIPS TESTING 2 TIMES DAILY INSULIN NO DX E11.65 CALCIUM CITRATE/VITAMIN D3 (CALCIUM CITRATE + D ORAL) Take 1 capsule by mouth three times daily. BIOTIN 2,500 MCG TAB Take 2,500 mcg by mouth once daily. ascorbic acid(VITAMIN C 500 MG TAB) Take 500 mg by mouth once daily. pnv/iron,carb/om-3/fa/fat 1(PRE- MULTIVITAMINS WITH MINERALS 27 MG-1 MG-300 MG CAP) Take 1 capsule by mouth once daily. Blood-Glucose Meter,Continuous (DEXCOM G7 SEAM RUBBER) [facility] (Patient not taking: Reported on 05/14/2023) Blood-Glucose Sensor (DEXCOM G7 SENSOR) isela change every 10 days (Patient not taking: Reported on 05/14/2023) metoprolol succinate ER (TOPROL XL) 25 mg 24 hr tablet Take 0.5-1 tablets by mouth once daily. As directed ondansetron orally disintegrating (ZOFRAN ODT) 4 mg disintegrating tablet Take 1 tablet by mouth every 6 hours as needed for nausea/vomiting. (Patient not taking: Reported on 05/14/2023) calcitriol (ROCALTROL) 0.5 mcg capsule Take 1 capsule by mouth once daily. (Patient not taking: Reported on 05/14/2023) Current Facility-Administered Medications Medication Dose Route Frequency cyanocobalamin 1,000 mcg injection 1,000 mcg INTRAMUSCULAR q 1 MONTH perflutren lipid microspheres 1.3 mL in NaCl (PF) 0.9% 10 mL injection (DEFINITY) INTRAVENOUS DIRECTED PRN sodium chloride 0.9 % (flush) 10 mL (BD POSIFLUSH) 10 mL INTRAVENOUS DIRECTED PRN Review of Systems Objective BP 110/68 Pulse 74 Temp 37.1 C (98.7 F) Resp 18 Wt 96.6 kg (213 lb) SpO2 97% BMI 36.56 kg/m Last 5 Encounter Wt Readings: Date: Wt: 05/14/2023 96.6 kg (213 lb) 01/11/2023 95.8 kg (211 lb 4.8 oz) 12/30/2022 97.6 kg (215 lb 3.2 oz) 11/06/2022 102.5 kg (226 lb) 10/23/2022 102.7 kg (226 lb 6.4 oz) No waist measurement recorded Estimated body mass index is 36.56 kg/m as calculated from the following: Height as of 01/11/23: 162.6 cm (5' 4 ). Weight as of this encounter: 96.6 kg (213 lb). Last 5 Encounter BP Readings: Date: BP: 05/14/2023 110/68 02/04/2023 131/80 02/02/2023 80/60 01/11/2023 96/58 12/30/2022 147/85 Physical Exam Constitutional: Appearance: Normal appearance. She is obese. HENT: Head: Normocephalic. Eyes: Conjunctiva/sclera: Conjunctivae normal. Cardiovascular: Rate and Rhythm: Normal rate and regular rhythm. Heart sounds: Normal heart sounds. Pulmonary: Effort: Pulmonary effort is normal. Breath sounds: Normal breath sounds. Musculoskeletal: Right lower leg: No edema. Left lower leg: No edema. Skin: General: Skin is warm and dry. Neurological: General: No focal deficit present. Mental Status: She is alert and oriented to person, place, and time. Psychiatric: Attention and Perception: Attention and perception normal. Mood and Affect: Mood normal. Behavior: Behavior normal. Thought Content: Thought content normal. Judgment: Judgment normal. Assessment and Plan Encounter Diagnosis ICD-10-CM 1. Memory difficulties R41.3 Short term memory issues noted.She will discuss with daughter and , then let me know if decide wants referral for [facility] evaluation 2. Vitamin D deficiency E55.9 VITAMIN D 25 HYDROXY Update labs soon. Adjust suppplement as indicated 3. Chronic cough R05.3 Dry throat and postnasal drip main issues now. No complaints of SOB or FIELD.See if cough and throat clearing are better with staying hydrated. 4. 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 Continues present management per Dr. Nassar. Reassured that HgA1c in 7 range is fine 5. Breast cancer screening by mammogram Z12.31 ARTIS SCREENING 6. Encounter for immunization Z23 [employer] COVID-19 VACCINE (2022- SEASON) AGE 12+ YR RSV PRINTED PHARMACY INSTRUCTIONS Above issues addressed with patient. Patient involved in shared decision making for management of medical issues. History and medications reviewed. Epic updated as needed Refills and/or prescriptions taken care of and meds adjusted as indicated after reviewed history, exam and labs. Health Maintenance reviewed. Updated record and/or ordered tests as recorded. Labs were ordered but not yet done. Added Vitamin D level and set date to now so lab can see all the orders. Encouraged on efforts at healthy diet and regular exercise and adequate sleep. Encouraged to stay as active as able. Consider brain games to help with cognition. May also try learning new things, like a language or instrument. As noted above, will pursue consult to [facility] for cognitive testing, etc. Guillaume Dominguez MD documented in this encounter [facility] 05-04-2023 Note [facility] 05-04-2023 History of Present illness Narrative Patient presents for B-12 injection. Denies any problems at this time. Patient instructed on any SE of medication, verbalized understanding and agreed to proceed with treatment. Tolerated injection well. Ning Mckeon LPN documented in this encounter [facility] 04-05-2023 Note [facility] 03-30-2023 Note [facility] 03-30-2023 Instructions Su Nassar MD - 03/30/2023 8:04 AM EDT Assessment / Plan Assessment: 1) Diabetes type 2, sugar control much better now, off of glimepiride and just on Mounjaro 2.5mg/wk, she is quite happy with this. I'll just keep her on it. She didn't like the sensor, so just checks fingerstick sugars intermittently Unchanged 1) Depression, doesn't feel she needs treatment at this point, not on any meds, (Dr. Dominguez ordered) 2) Vitamin D deficiency 3) Vitamin B12 deficiency, getting monthly injections, 4) hx Gastric bypass, weight dropping most recently, she isn't sure why. 5) Abdominal wall hernias, had surgery, is in study, doesn't know if it was robotic. Plan: 1) stay on the same dose of Mounjaro 2) return to me as planned in May 2023 Su Nassar MD documented in this encounter [facility] 03-30-2023 History of Present illness Narrative Virtual Visit utilizing both audio and video components FaceTime I have communicated my name and active licensure. The patient's identity and physical location were verified at the time of this visit. Either the patient or their legal accounting representative has been informed of the risks and benefits of -- and alternatives to -- treatment through a remote evaluation and consents to proceed with the evaluation remotely. Patient location: [place], spoke with daughter Assessment / Plan Assessment: 1) Diabetes type 2, sugar control much better now, off of glimepiride and just on Mounjaro 2.5mg/wk, she is quite happy with this. I'll just keep her on it. She didn't like the sensor, so just checks fingerstick sugars intermittently Unchanged 1) Depression, doesn't feel she needs treatment at this point, not on any meds, (Dr. Dominguez ordered) 2) Vitamin D deficiency 3) Vitamin B12 deficiency, getting monthly injections, 4) hx Gastric bypass, weight dropping most recently, she isn't sure why. 5) Abdominal wall hernias, had surgery, is in study, doesn't know if it was robotic. Plan: 1) stay on the same dose of Mounjaro 2) return to me as planned in May 2023 Su Nassar MD Data Review daughter Sara has iPhone=Von ([phone]) History Diabetes type 2, dx 1990 last eye exam November, had cataract surgery, no DM eye disease December 2022, though has early macular degen no hx ME, stroke, claudication, intolerant of statins, niacin and welchol does have hx PE so is on chronic anticoag sugars fasting 140-160 by fingerstick, mid-afternoon, usually 180, never over 200 Mounjaro helps with sugars, weight stable. daughter Sara stopped glimepiride because of low sugars Drug history: *Invokana: yeast inf, has these even without this Rx *Byetta: ineffective *Metformin: diarrhea, has stopped Vitamin D deficiency, on calcium 500 mg (+400U vitD) 2x daily, plus calcitriol 0.5 mcg daily Nephrolithiasis s/p lithotripsy, stent Low back and hip pain s/p injections x 3. Context: 1) s/p COVID vaccine Pfizer 2) daughter Sara now helps with her health care ROS Res: positive for recent dx pulmonary emboli, on Elequis PHYSICAL EXAM PAST MEDICAL HISTORY 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 Contact dermatitis and other eczema, due to unspecified cause Grade I diastolic dysfunction Irregular heart beat Kidney stone Lichen 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 per [facility] outside facility Apr 1997 MORBID OBESITY 08/18/2007 Obstructive sleep apnea Sleep study 2003 Occlusion and stenosis of carotid artery without mention of cerebral infarction 03/09/2006 mild stenosis shown on u/s at [facility] u/s repeated 02/02/07 with no change Open fracture of tuft of distal phalanx of finger 05/06/2022 PAC (premature atrial contraction) Pulmonary embolism (HCC) Pure hypercholesterolemia Type II or unspecified type diabetes mellitus with renal manifestations, uncontrolled(250.42) Unspecified glaucoma(365.9) Unspecified pruritic disorder PAST SURGICAL HISTORY PAST SURGICAL HISTORY Procedure Laterality Date EGD TRANSORAL BIOPSY SINGLE/MULTIPLE 05/14/2015 EXAM UNDER ANESTHESIA 2019 Vulvar biopsies GASTRIC BYPASS 09/14/2007 HERNIA REPAIR W/MESH 2019 ventral INCISION & DRAINAGE ABSCESS SIMPLE/SINGLE 05/31/2009 ABD WALL and intestine removed LAPS COLECTOMY PRTL W/RMVL TERMINAL ILEUM 02/20/2009 polyps LIG/TRNSXJ FLP TUBE ABDL/VAG APPR UNI/BI 01/29/1970 Tubal ligation NSL/SINUS NDSC SPHENDT RMVL TISS SPHENOID SINUS PAST SURGICAL HISTORY OF 02/29/2008 Left total knee PAST SURGICAL HISTORY OF 04/30/2008 Right total knee FAMILY HISTORY FAMILY HISTORY Problem Relation Age of Onset Breast Cancer Mother cva Stroke Mother Heart Father AAA Colon Cancer Father other (leukemia) Brother SOCIAL HISTORY SOCIAL HISTORY Marital Status: Tobacco Use: Never Alcohol Use: No Drug Use: No Sexual Activity: Not on file MEDICATIONS Prior to Admission Medications: Current Outpatient Prescriptions on File Prior to Visit: cefUROXime (CEFTIN) 250 mg tablet Take 1 tablet by mouth twice daily for 10 days. HYDROcodone-Acetaminophen 7.5-300 mg tab Take 1 tablet by mouth twice daily as needed. cyanocobalamin, Vitamin B12, 1,000 mcg/mL soln Inject 1 mL intramuscularly as directed. clobetasol (TEMOVATE) 0.05 % ointment Apply a thin layer TO AFFECTED AREA every night before bed. lidocaine (XYLOCAINE) 5 % ointment Apply 1 application to affected area twice daily. gabapentin 300 mg capsule Take 1 capsule by mouth three times daily. calcitriol (ROCALTROL) 0.5 mcg capsule Take 1 capsule by mouth once daily. blood sugar diagnostic(FREESTYLE TEST STRIPS) Taking blood sugars once daily BIOTIN 2,500 MCG TAB Take one(1) tablet daily.. ascorbic acid(VITAMIN C 500 MG TAB) Take one(1) tablet daily. calcium carbonate(CALTRATE 600 600 MG (1,500 MG) TAB) Take one(1) tablet twice daily. pnv/iron,carb/om-3/fa/fat 1(PRE-JIMY MULTIVITAMINS WITH MINERALS 27 MG-1 MG-300 MG CAP) Take one(1) tablet daily. ALLERGIES Review of patient's allergies indicates: Asa (Salicylates) Anaphylaxis Avapro (Irbesartan) Swelling Byetta (Exenatide) Comment:Can not remember what effect but not suppose to take it Crestor (Rosuvastat* Erythromycin Etodolac Contraindication-Medical Surgical Comment:Was told never to take NSAID due to bypass surgery. She also developed severe pain after taking Etodolac that was excruciating Lipitor (Atorvastat* Niaspan (Niacin (An* Penicillins Rash Pravachol (Pravasta* Sulfa (Sulfonamide * Rash Zetia (Ezetimibe) Zocor (Simvastatin) Duoderm [Other] Rash Ointments [Other] Comment:Can use lotions/creams, but ointments cause itchy/burning and painful rash. Tape [Other] documented in this encounter [facility] 03-18-2023 Miscellaneous Notes Okayed Patient last visit with PCP 02/02/23 Follow up appointment scheduled 05/14/23 Rayne Winter Ma documented in this encounter [facility] 03-04-2023 Note [facility] 03-04-2023 History of Present illness Narrative Patient presents for B-12 injection. Denies any problems at this time. Patient instructed on any SE of medication, verbalized understanding and agreed to proceed with treatment. Tolerated injection well. Ning Mckeon LPN documented in this encounter [facility] 02-19-2023 Miscellaneous Notes Patient reports she has been out of fluconazole for 2 weeks and the doctor that prescribes it, Dr. Peterson, [place] the [place]. Asking if pcp can send Rx's to pharmacy. Patient has been identified by name and date of : Yes, Provider Analia Date 02-19-23 Time 11:23 am Patient phones for refill(s): Requested Prescriptions Pending Prescriptions Disp Refills fluconazole (DIFLUCAN) 200 mg tablet 32 tablet 3 Sig: TAKE 1 TABLET 3x per week clobetasol (TEMOVATE) 0.05 % cream 60 g 4 Six per day for 2 weeks and then twice daily thereafter Date of last office visit with pcp: 02-02-23. Next appt: 05-14-23. Next appt w/;Dr. Samantha Hopkins is 03-12-23 Last 2 Encounter Wt Readings: Date: Wt: 01/11/2023 95.8 kg (211 lb 4.8 oz) 12/30/2022 97.6 kg (215 lb 3.2 oz) Previous labs/tests for medication: Blood Pressure: BUN (mg/dL) Date Value 09/08/2022 11 02/12/2021 14 Sodium (mmol/L) Date Value 09/08/2022 136 02/12/2021 138 Last 1 Encounter BP Readings: Date: BP: 02/04/2023 131/80 Liver Function: ALT (U/L) Date Value 09/08/2022 10 02/12/2021 7 AST (U/L) Date Value 09/08/2022 7 02/12/2021 11 Please advise. Thank you. Shea Chisholm RN documented in this encounter [facility] 02-04-2023 Note [facility] 02-04-2023 History of Present illness Narrative Patient presents for B-12 injection. Denies any problems at this time. Patient instructed on any SE of medication, verbalized understanding and agreed to proceed with treatment. Tolerated injection well. Rechecked BP today d/t very low reading at office visit 02/02/23. Patient states that she feels better. Ning Mckeon LPN documented in this encounter [facility] 02-02-2023 Note [facility] 02-02-2023 History of Present illness Narrative SUBJECTIVE Miriam Davenport is a 82 year old female here today for a check up on her medical problems. Chief Complaint Patient presents with: Recheck Immunizations: Flu vaccination HPI Miriam Davenport is a 82 year old female established patient. She is here today for a 3 month follow up. She actually states today that she does not know why she is here today, does not need anything. Last seen in October with Guillaume Dominguez MD. Daughter was with her. Still issues with sleep, trouble falling asleep, waking during the night. Had a rash. Does not remember where. Had discussed some concerns with memory but patient denies any issues. Does not want to make any changes or do any testing at this time. Her medications were reviewed today and her list is now up to date. Medications Current Outpatient Medications Medication Sig chlorhexidine (HIBICLENS) 4 % external liquid Wash genitale area once a day for infectious vulvitis DULoxetine (CYMBALTA) 20 mg capsule take 1 capsule by mouth once daily tirzepatide (MOUNJARO) 2.5 mg/0.5 mL pen injector Inject 2.5 mg subcutaneously one time a week. apixaban (ELIQUIS) 5 mg tab(s) Take 1 tablet by mouth twice daily. oxybutynin ER (DITROPAN XL) 10 mg 24 hr tablet Take 1 tablet by mouth once daily as needed. OVERACTIVE BLADDER clindamycin (CLEOCIN) 300 mg capsule take 2 capsules by mouth 1 hour prior to appointment metoprolol succinate ER (TOPROL XL) 25 mg 24 hr tablet Take 0.5-1 tablets by mouth once daily. As directed ondansetron orally disintegrating (ZOFRAN ODT) 4 mg disintegrating tablet Take 1 tablet by mouth every 6 hours as needed for nausea/vomiting. calcitriol (ROCALTROL) 0.5 mcg capsule Take 1 capsule by mouth once daily. ferrous sulfate 325 mg (65 mg iron) tablet Take 1 tablet by mouth once daily. fluconazole (DIFLUCAN) 200 mg tablet TAKE 1 TABLET 3x per week clobetasol (TEMOVATE) 0.05 % cream 3x per day for 2 weeks and then twice daily thereafter diphenhydramine HCl (BENADRYL ORAL) Take by mouth daily at bedtime. cholecalciferol, vitamin D3, (VITAMIN D3 ORAL) Take by mouth once daily. acetaminophen (TYLENOL) 500 mg tablet Take 500 mg by mouth daily at bedtime. CALCIUM CITRATE/VITAMIN D3 (CALCIUM CITRATE + D ORAL) Take 1 capsule by mouth three times daily. BIOTIN 2,500 MCG TAB Take 2,500 mcg by mouth once daily. ascorbic acid(VITAMIN C 500 MG TAB) Take 500 mg by mouth once daily. pnv/iron,carb/om-3/fa/fat 1(PRE- MULTIVITAMINS WITH MINERALS 27 MG-1 MG-300 MG CAP) Take 1 capsule by mouth once daily. Blood-Glucose Meter,Continuous (DEXCOM G7 SEAM RUBBER) [facility] use to check sugars Blood-Glucose Sensor (DEXCOM G7 SENSOR) isela change every 10 days blood sugar diagnostic (ACCU-CHEK GUIDE TEST STRIPS) test strip 1 Strip three times daily. Use as instructed DX: E11.42 Lancets lancets Test blood sugar(s) 3 times daily. Dx: Other DM Code E11.42 Insulin: No blood sugar diagnostic (ACCU-CHEK POLY PLUS TEST STRP) test strip Check sugars 3 times daily COMPOUNDED PRESCRIPTION ONE TOUCH ULTRA 2 TEST STRIPS TESTING 2 TIMES DAILY INSULIN NO DX E11.65 Current Facility-Administered Medications Medication Dose Route Frequency [START ON 02/04/2023] cyanocobalamin 1,000 mcg injection 1,000 mcg INTRAMUSCULAR q 1 MONTH perflutren lipid microspheres 1.3 mL in NaCl (PF) 0.9% 10 mL injection (DEFINITY) INTRAVENOUS DIRECTED PRN sodium chloride 0.9 % (flush) 10 mL (BD POSIFLUSH) 10 mL INTRAVENOUS DIRECTED PRN ALLERGIES Allergen Reactions Asa [Salicylates] Anaphylaxis Cephalexin Rash, Diarrhea Severe rash all over as well as severe diarrhea Hydrocodone Itching Itching all over Metformin GI Upset diarrhea--severe diarrhea so needed to quit the med Did try it again to help with lowering blood sugar and developed daily severe diarrhea. Adhesive Itching Aspirin Anaphylaxis Avapro [Irbesartan] Swelling Byetta [Exenatide] Can not remember what effect but not suppose to take it Crestor [Rosuvastat* Duoderm [Other] Rash Eggs [Egg] Diarrhea Not true allergy Erythromycin Myalgia Etodolac Contraindication-Medical Surgical Was told never to take NSAID due to bypass surgery. She also developed severe pain after taking Etodolac that was excruciating Lipitor [Atorvastat* Niacin Unknown Niaspan [Niacin (An* Nsaids (Non-Steroid* Other: See Comments Was told to avoid all NSAID's due to bypass surgery Ointments [Other] Can use lotions/creams, but ointments cause itchy/burning and painful rash. Penicillins Rash Pravachol [Pravasta* Sulfa (Sulfonamide * Rash Tape [Other] Zetia [Ezetimibe] Zocor [Simvastatin] ACTIVE PROBLEM LIST Obesity, Class II, Bmi 35-39.9 - 02/02/2023 Irregular Heart Beat - 11/10/2022 Pac (Premature Atrial Contraction) - 11/10/2022 Radiculopathy, Lumbar Region - 08/18/2022 Pain in Left Hip - 12/20/2020 Trochanteric Bursitis of Left Hip - 12/20/2020 Muscle Weakness - 12/20/2020 Multiple Subsegmental Pulmonary Emboli Without Acute Cor Pulmonale (Hcc) - 04/10/2019 Comment: Provoked PE, patient had herniorrhaphy on 03/24. Diagnosed on 03/[address] in ER. Treatment with Xarelto initiated. Uncomplicated Epigastric Hernia - 03/25/2019 Incisional Hernia, Without Obstruction Or Gangrene - 03/17/2019 Spinal Stenosis of Lumbar Region - 11/21/2018 Open Compression Fracture of L1 Lumbar Vertebra, With Routine Healing, Subsequent Encounter - 09/21/2018 Spondylolisthesis of Lumbar Region - 10/20/2017 Si Joint Arthritis - 10/20/2017 Chronic Si Joint Pain - 10/20/2017 Carotid Artery Stenosis Without Cerebral Infarction, Bilateral - 08/12/2016 Aortic Sclerosis - 07/09/2015 History of Jordin-En-Y Gastric Bypass - 04/21/2015 Retrosternal Chest Pain - 04/09/2015 Neck Pain - 04/09/2015 Type 2 Diabetes Mellitus With Peripheral Neuropathy (Hcc) - 10/16/2014 Atypical Chest Pain - 08/08/2014 Murmur, Cardiac - 06/21/2014 Lumbar Strain, Subsequent Encounter - 10/12/2013 Lumbar Spondylosis - 10/12/2013 Lumbar Degenerative Disc Disease - 10/12/2013 Lumbosacral Facet Joint Syndrome - 10/12/2013 Vitamin D Deficiency - 01/25/2013 Sprain of Lumbar Region - 07/15/2012 Disorders of Bursae and Tendons in Shoulder Region, Unspecified - 08/12/2010 Lichen Sclerosus - 08/23/2009 Comment: Bx with squamous hyperplasia per [facility] outside facility Apr 1997 Intervertebral Cervical Disc Disorder With Myelopathy, 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, Lumbar Region - 04/11/2009 Other and 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 Osteopenia - 04/20/2008 Comment: 2012 t score -1.7 at [facility] Contact Dermatitis and Other Eczema, Due to Unspecified Cause - 12/07/2007 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 Anxiety State - 07/28/2007 Pernicious Anemia - 04/13/2007 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 - 03/29/2007 Eating Disorder, Unspecified - 03/29/2007 Occlusion and Stenosis of Carotid Artery Without Mention of Cerebral Infarction - 03/09/2006 Comment: mild stenosis shown on u/s at [facility] u/s repeated 02/02/07 with no change Calculus of Gallbladder Without Mention of Cholecystitis Or Obstruction - 04/09/2005 Comment: No evidence obstruction on HIDA scan 03/04 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 Unspecified Glaucoma(365.9) Class 3 Severe Obesity With Body Mass Index (Bmi) of 40.0 to 44.9 in Adult (Hcc) Hyperlipidemia - 01/20/2005 Chronic Rhinitis - 01/20/2005 Social History Tobacco Use Smoking status: Never Smokeless tobacco: Never Vaping Use Vaping Use: Never used Substance Use Topics Alcohol use: No Drug use: No Review of Systems Constitutional: Positive for fatigue. Negative for chills, diaphoresis and fever. Respiratory: Negative. Cardiovascular: Negative. OBJECTIVE BP 80/60 Pulse 102 SpO2 98% Physical Exam Vitals and nursing note reviewed. Constitutional: General: She is awake. She is not in acute distress. Appearance: Normal appearance. She is well-developed and well-groomed. She is not ill-appearing, toxic-appearing or diaphoretic. HENT: Head: Normocephalic. Right Ear: External ear normal. Left Ear: External ear normal. Nose: Nose normal. Eyes: General: Vision grossly intact. Conjunctiva/sclera: Conjunctivae normal. Pupils: Pupils are equal, round, and reactive to light. Neck: Vascular: No JVD. Trachea: Trachea normal. Cardiovascular: Rate and Rhythm: Normal rate and regular rhythm. Pulses: Normal pulses. Heart sounds: Normal heart sounds. No murmur heard. Pulmonary: Effort: Pulmonary effort is normal. No accessory muscle usage, prolonged expiration or respiratory distress. Breath sounds: Normal breath sounds. Musculoskeletal: Cervical back: Neck supple. Skin: General: Skin is warm and dry. Capillary Refill: Capillary refill takes less than 2 seconds. Neurological: General: No focal deficit present. Mental Status: She is alert and oriented to person, place, and time. Mental status is at baseline. Psychiatric: Attention and Perception: Attention and perception normal. Mood and Affect: Mood and affect normal. Speech: Speech normal. Behavior: Behavior normal. Behavior is cooperative. Thought Content: Thought content normal. Cognition and Memory: Cognition and memory normal. Judgment: Judgment normal. ASSESSMENT/PLAN: 1. Hypotension due to drugs - ICD9: 458.8, E947.9, ICD10: I95.2 (primary diagnosis) BP low today but overall not symptomatic, she voices complaints of being fatigued but per her usual chronic fatigue. Discussed holding her metoprolol, will check with cardiology if we can discontinue this, also encouraged adequate hydration. She comes in later this week 02/04 for b12 injection and we will recheck her bp then. 2. Chronic fatigue - ICD9: 780.79, ICD10: R53.82 Plan for labs before next appointment, she declines to do these today. Declines urine dip also. - CBC + DIFF - HGB A1C - COMP METABOLIC PANEL - IRON + TIBC - FERRITIN BLD 3. Memory deficit - ICD9: 780.93, ICD10: R41.3 Will also update daughter on how she was feeling with OV today. 4. Obesity, Class II, BMI 35-39.9 - ICD9: 278.00, ICD10: E66.9 5. Need for influenza vaccination - ICD9: V04.81, ICD10: Z23 - INFLUENZA VACCINE, PRSV FREE, AGE 65+ YR, HIGH DOSE, QUADRIVALENT (FLUZONE HIGH-DOSE) 6. Encounter for therapeutic drug monitoring - ICD9: V58.83, ICD10: Z51.81 - CBC + DIFF - HGB A1C - COMP METABOLIC PANEL - IRON + TIBC - FERRITIN BLD 7. Type 2 diabetes mellitus with peripheral neuropathy (HCC) - ICD9: 250.60, 357.2, ICD10: E11.42 - HGB A1C - ALBUMIN/CREAT RATIO RND UR 8. Mixed hyperlipidemia - ICD9: 272.2, ICD10: E78.2 - LIPID PANEL BASIC Portions of this note have been entered by ancillary staff. I have reviewed and when necessary edited, so that they are an adequate record of my encounter with this patient Please note that parts of this document were created using voice recognition software and therefore may contain grammatical errors. Patient verbalizes understanding of instructions from today's visit and in agreement with treatment plan. Questions answered. Agrees to call the office if questions, concerns of issues with acute symptoms not improving or if they worsen. See diagnoses and orders for additional plan(s). Allergies and medications were reviewed, list was updated, and refills given if needed. Past medical, surgical, social, and family history reviewed and updated as appropriate. Encouraged proper diet & exercise as well as compliance with taking medications. Age-appropriate health preventative measures were discussed. Return if symptoms worsen or fail to improve, for Keep next scheduled appointment.. Josefa Caputo APRN-TOOL DISTRIBUTOR documented in this encounter [facility] 02-02-2023 Miscellaneous Notes Patient scheduled for nurse visit 02/04/23 to receive B-[address]. [address] new administration order at this time. Ning Mckeon LPN documented in this encounter [facility] 01-28-2023 Note HNO ID: [id number] Author: Dilma Dorman CT Service: Nuclear Medicine Author Type: Technologist Type: Progress Notes Filed: 01/28/2023 9:33 AM Note Text: RADIOLOGY SERVICE PROGRESS NOTE SERVICE DATE: 01/28/2023 SERVICE TIME: 9:31 AM PATIENT IDENTITY VERIFICATION COMPLETED USING TWO (2) STANDARD IDENTIFIERS: Name and Date of confirmed by patient verbally and Name and Date of confirmed by identification band FALL SCREENING: Has the patient had 2 falls in the last year or 1 fall with injury or currently using an Ambulatory Assistive Device (Walker, Cane, Wheelchair, Crutches, etc.)? Yes, Patient High Risk for Falls What interventions were put in place to prevent falls during this visit? Instructed Patient to Call for Help if Needed and Increased Observations by Caregivers PATIENT GENDER DATA: .female : No ALLERGIES: Reviewed and unchanged MEDICATIONS REVIEWED: Not applicable PATIENT RELEVANT IMPLANT DATA REVIEWED: Not Applicable CREATININE: Creatinine Date Value Ref Range Status 09/08/2022 0.50 (L) 0.58 - 0.96 mg/dL Final 04/27/2022 0.71 0.58 - 0.96 mg/dL Final 01/16/2022 0.62 0.58 - 0.96 mg/dL Final Estimated Glomerular Filtration Rate Date Value Ref Range Status 09/08/2022 95 >=60 mL/min/1.73m? Final Comment: Estimated Glomerular Filtration Rate (eGFR) is calculated using the 2020 CKD-EPI creatinine equation. This equation utilizes serum creatinine, sex, and age as parameters. The creatinine assay has traceable calibration to isotope dilution-mass spectrometry. Refer to KDIGO guidelines for clinical interpretation. In patients with unstable renal function, e.g. those with acute kidney injury, the eGFR may not accurately reflect actual GFR. eGFR- Date Value Ref Range Status 02/12/2021 >60 Final P.O.C.T. RESULTS: N/A January 28, [address] PERFORMED: No IV SITE: Ambulatory: A peripheral IV was started in the Right antecubital site with a Angio cath: 22 gauge. POST EXAM PIV STATUS: Discontinued PROCEDURE TYPE: [place] Stress: 16.0 mCi [id number] was administered IV for Rest Imaging at 08:10 by . 46.4 mCi [id number] was administered IV for Stress Imaging at 09:17 by . PATIENT DISCHARGED TO: Ambulatory patient, left [place] department area. A Diagnostic radioactive procedure has taken place, with no further precautions necessary other than routine body substance precautions. More information regarding radiation safety can be found using this link: [email or web address]%20Nuclear%20Medi cine%20Procedures.[email or web address] SIGNATURE: HELENA Julien PATIENT NAME: Miriam Davenport DATE: January 28, 2023 TIME: 9:31 AM PAGER/CONTACT #: [facility] 01-28-2023 History of Present illness Narrative RADIOLOGY SERVICE PROGRESS NOTE SERVICE DATE: 01/28/2023 SERVICE TIME: 9:31 AM PATIENT IDENTITY VERIFICATION COMPLETED USING TWO (2) STANDARD IDENTIFIERS: Name and Date of confirmed by patient verbally and Name and Date of confirmed by identification band FALL SCREENING: Has the patient had 2 falls in the last year or 1 fall with injury or currently using an Ambulatory Assistive Device (Walker, Cane, Wheelchair, Crutches, etc.)? Yes, Patient High Risk for Falls What interventions were put in place to prevent falls during this visit? Instructed Patient to Call for Help if Needed and Increased Observations by Caregivers PATIENT GENDER DATA: .female : No ALLERGIES: Reviewed and unchanged MEDICATIONS REVIEWED: Not applicable PATIENT RELEVANT IMPLANT DATA REVIEWED: Not Applicable CREATININE: Creatinine Date Value Ref Range Status 09/08/2022 0.50 (L) 0.58 - 0.96 mg/dL Final 04/27/2022 0.71 0.58 - 0.96 mg/dL Final 01/16/2022 0.62 0.58 - 0.96 mg/dL Final Estimated Glomerular Filtration Rate Date Value Ref Range Status 09/08/2022 95 >=60 mL/min/1.73m Final Comment: Estimated Glomerular Filtration Rate (eGFR) is calculated using the 2020 CKD-EPI creatinine equation. This equation utilizes serum creatinine, sex, and age as parameters. The creatinine assay has traceable calibration to isotope dilution-mass spectrometry. Refer to KDIGO guidelines for clinical interpretation. In patients with unstable renal function, e.g. those with acute kidney injury, the eGFR may not accurately reflect actual GFR. eGFR- Date Value Ref Range Status 02/12/2021 >60 Final P.O.C.T. RESULTS: N/A January 28, [address] PERFORMED: No IV SITE: Ambulatory: A peripheral IV was started in the Right antecubital site with a Angio cath: 22 gauge. POST EXAM PIV STATUS: Discontinued PROCEDURE TYPE: NM Stress: 16.0 mCi [id number] was administered IV for Rest Imaging at 08:10 by . 46.4 mCi [id number] was administered IV for Stress Imaging at 09:17 by . PATIENT DISCHARGED TO: Ambulatory patient, left [place] department area. A Diagnostic radioactive procedure has taken place, with no further precautions necessary other than routine body substance precautions. More information regarding radiation safety can be found using this link: [email or web address]%20Nuclear %20Medicine%[email or web address].[email or web address] SIGNATURE: HELENA Julien PATIENT NAME: Miriam Davenport DATE: January 28, 2023 TIME: 9:31 AM PAGER/CONTACT #: documented in this encounter [facility] 01-27-2023 Miscellaneous Notes Spoke with patient regarding reminder for stress test tomorrow and given instructions. documented in this encounter [facility] 01-13-2023 Miscellaneous Notes Form rec'd from [facility] asking directions for pt's anticoagulant. Pcp noted pt can hold anticoagulant 2 days prior to extraction then resume day after extraction. This was faxed back to the number on the form. documented in this encounter [facility] 01-11-2023 Note [facility] 01-11-2023 History of Present illness Narrative Images from the original note were not included. [facility] [place] Lonnie Brandon Department of Cardiovascular Medicine SECTION OF REGIONAL CARDIOLOGY Consultation requested by Guillaume Dominguez MD for an opinion regarding Miriam Davenport. My final recommendations will be communicated back to the requesting physician by way of shared Medical record or letter to requesting physician via US mail. CC: establishment of cardiac care HPI: Miriam Davenport is (an) 82 year old female with history of diabetes, CKD, PACs, and dyspnea on exertion who is here today for establishment of cardiac care. She has most recently seen Dr. Ardon for premature atrial contractions which were very frequent as was demonstrated on 14-day ZIO monitor of October 2021. She has chronic dyspnea on exertion which he did not feel was likely due to the PACs. She did see Dr. Carmona remotely and then Dr. Starr with a normal stress echocardiogram in 2014. I do not see an ischemic work-up since then. She did have an echocardiogram in September 2021 which showed normal LV systolic function with grade 1 diastolic dysfunction. There was mild LVH noted and no significant valvular disease reported. This was a suboptimal study. She states she can sometimes go 2 steps then gets SOB but this has been going on for many years but seems to be worth over the past. She had limitation by back pain then had injection and now is pain free since the beginning of December 2022. [place] walk all [place] now and does have FIELD but continues to push herself. The patient denies any regular aerobic exercise Patient denies dizziness, lower extremity edema, PND, orthopnea, presyncope, syncope, claudication symptoms, or bleeding issues. 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 Contact dermatitis and other eczema, due to unspecified cause Grade I diastolic dysfunction Irregular heart beat Kidney stone Lichen 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 per [facility] outside facility Apr 1997 MORBID OBESITY 08/18/2007 Obstructive sleep apnea Sleep study 2003 Occlusion and stenosis of carotid artery without mention of cerebral infarction 03/09/2006 mild stenosis shown on u/s at [facility] u/s repeated 02/02/07 with no change Open fracture of tuft of distal phalanx of finger 05/06/2022 PAC (premature atrial contraction) Pulmonary embolism (HCC) Pure hypercholesterolemia Type II or unspecified type diabetes mellitus with renal manifestations, uncontrolled(250.42) Unspecified glaucoma(365.9) Unspecified pruritic disorder PAST SURGICAL HISTORY Procedure Laterality Date EGD TRANSORAL BIOPSY SINGLE/MULTIPLE 05/14/2015 EXAM UNDER ANESTHESIA 2019 Vulvar biopsies GASTRIC BYPASS 09/14/2007 HERNIA REPAIR W/MESH 2019 ventral INCISION & DRAINAGE ABSCESS SIMPLE/SINGLE 05/31/2009 ABD WALL and intestine removed LAPS COLECTOMY PRTL W/RMVL TERMINAL ILEUM 02/20/2009 polyps LIG/TRNSXJ FLP TUBE ABDL/VAG APPR UNI/BI 01/29/1970 Tubal ligation NSL/SINUS NDSC SPHENDT RMVL TISS SPHENOID SINUS PAST SURGICAL HISTORY OF 02/29/2008 Left total knee PAST SURGICAL HISTORY OF 04/30/2008 Right total knee FAMILY HISTORY Problem Relation Age of Onset Breast Cancer Mother cva Stroke Mother Heart Father AAA Colon Cancer Father other (leukemia) Brother SOCIAL HISTORY Social History Tobacco Use Smoking status: Never Smokeless tobacco: Never Vaping Use Vaping Use: Never used Substance Use Topics Alcohol use: No Drug use: No ALLERGIES: Asa [Salicylates], Cephalexin, Hydrocodone, Metformin, Adhesive, Aspirin, Avapro [Irbesartan], Byetta [Exenatide], Crestor [Rosuvastatin Calcium], Duoderm [Other], Eggs [Egg], Erythromycin, Etodolac, Lipitor [Atorvastatin], Niacin, Niaspan [Niacin (Antihyperlipidemic)], Nsaids (Non-Steroidal Anti-Inflammatory Drug), Ointments [Other], Penicillins, Pravachol [Pravastatin Sodium], Sulfa (Sulfonamide Antibiotics), Tape [Other], Zetia [Ezetimibe], and Zocor [Simvastatin] CURRENT MEDICATIONS: Current Outpatient Medications Medication Sig Blood-Glucose Meter,Continuous (DEXCOM G7 SEAM RUBBER) misc use to check sugars Blood-Glucose Sensor (DEXCOM G7 SENSOR) isela change every 10 days blood sugar diagnostic (ACCU-CHEK GUIDE TEST STRIPS) test strip 1 Strip three times daily. Use as instructed DX: E11.42 Lancets lancets Test blood sugar(s) 3 times daily. Dx: Other DM Code E11.42 Insulin: No DULoxetine (CYMBALTA) 20 mg capsule take 1 capsule by mouth once daily tirzepatide (MOUNJARO) 2.5 mg/0.5 mL pen injector Inject 2.5 mg subcutaneously one time a week. apixaban (ELIQUIS) 5 mg tab(s) Take 1 tablet by mouth twice daily. oxybutynin ER (DITROPAN XL) 10 mg 24 hr tablet Take 1 tablet by mouth once daily as needed. OVERACTIVE BLADDER clindamycin (CLEOCIN) 300 mg capsule take 2 capsules by mouth 1 hour prior to appointment ketoconazole (NIZORAL) 2 % cream Apply 1 application to affected area once daily. Continue for a week after rash resolves metoprolol succinate ER (TOPROL XL) 25 mg 24 hr tablet Take 0.5-1 tablets by mouth once daily. As directed blood sugar diagnostic (ACCU-CHEK POLY PLUS TEST STRP) test strip Check sugars 3 times daily ondansetron orally disintegrating (ZOFRAN ODT) 4 mg disintegrating tablet Take 1 tablet by mouth every 6 hours as needed for nausea/vomiting. calcitriol (ROCALTROL) 0.5 mcg capsule Take 1 capsule by mouth once daily. glimepiride (AMARYL) 4 mg tablet Take 2 tablets by mouth daily with breakfast. ferrous sulfate 325 mg (65 mg iron) tablet Take 1 tablet by mouth once daily. fluconazole (DIFLUCAN) 200 mg tablet TAKE 1 TABLET 3x per week clobetasol (TEMOVATE) 0.05 % cream 3x per day for 2 weeks and then twice daily thereafter chlorhexidine (HIBICLENS) 4 % external liquid Wash genitale area once a day for infectious vulvitis diphenhydramine HCl (BENADRYL ORAL) Take by mouth daily at bedtime. cholecalciferol, vitamin D3, (VITAMIN D3 ORAL) Take by mouth once daily. acetaminophen (TYLENOL) 500 mg tablet Take 500 mg by mouth daily at bedtime. COMPOUNDED PRESCRIPTION ONE TOUCH ULTRA 2 TEST STRIPS TESTING 2 TIMES DAILY INSULIN NO DX E11.65 CALCIUM CITRATE/VITAMIN D3 (CALCIUM CITRATE + D ORAL) Take 1 capsule by mouth three times daily. BIOTIN 2,500 MCG TAB Take 2,500 mcg by mouth once daily. ascorbic acid(VITAMIN C 500 MG TAB) Take 500 mg by mouth once daily. pnv/iron,carb/om-3/fa/fat 1(PRE-JIMY MULTIVITAMINS WITH MINERALS 27 MG-1 MG-300 MG CAP) Take 1 capsule by mouth once daily. Current Facility-Administered Medications Medication Dose Route Frequency cyanocobalamin 1,000 mcg injection 1,000 mcg INTRAMUSCULAR q 1 MONTH ROS: Card: See present history. Pulm: See HPI Gastro: No nausea, vomiting, or diarrhea GenUr: No history of dysuria, frequency or incontinence Endo: Negative for cold or heat intolerance, polyuria or polydipsia. Neuro: no focal weakness, focal sensory loss, headache, visual changes, seizure activity, ataxia, speech/language loss. Musculoskeletal: Negative for joint or muscle pain, back pain, or swelling. Infect: no fevers, chills, rigors or night sweats. Skin: Negative for lesions, rash, and itching. Heme: Negative for prolonged bleeding, bruising easily or swollen nodes. The remainder of the review of systems is negative. PHYSICAL EXAMINATION: GENERAL: alert cooperative, pleasant oriented x 3 (self, time and place) in no acute distress obese BP 96/58 Pulse 77 Ht 162.6 cm (5' 4 ) Wt 95.8 kg (211 lb 4.8 oz) SpO2 98% BMI 36.27 kg/m Last 3 Encounter BP Readings: Date: BP: 01/11/2023 96/58 12/30/2022 147/85 12/15/2022 164/72 Last 3 Encounter Pulse Readings: Date: Pulse: 01/11/2023 77 12/30/2022 80 12/15/2022 77 Last 3 Encounter Wt Readings: Date: Wt: 01/11/2023 95.8 kg (211 lb 4.8 oz) 12/30/2022 97.6 kg (215 lb 3.2 oz) 11/06/2022 102.5 kg (226 lb) SKIN: warm, dry, no rash. NECK: supple, no palpable masses, no JVD, carotids well felt, no bruits. CARDIAC: Odon palpable in the 5th intercostal space mid clavicular line, normal S1 and S2, no murmurs, gallops, or rubs. CHEST: Normal respiratory efforts, lungs clear to auscultation bilaterally. ABDOMEN: Soft, no tenderness, rigidity, or masses. No palpable liver or spleen. Normal bowel sounds, no bruits. NEURO: intact cranial nerves II through XII, no motor or sensory deficits in all 4 extremities. EXTREMITIES: No cyanosis, clubbing, or edema. Peripheral pulses well felt. CARDIAC (& OTHER IMPORTANT) TESTIN-day ZIO 10/2021: Zio monitor reviewed. Agree with reported findings: Patient had a min HR of 61 bpm, max HR of 184 bpm, and avg HR of 82 bpm. Predominant underlying rhythm was Sinus Rhythm. 806 Supraventricular Tachycardia runs occurred, the run with the fastest interval lasting 4 beats with a max rate of 184 bpm, the longest lasting 15.4 secs with an avg rate of 103 bpm. Supraventricular Tachycardia was detected within +/- 45 seconds of symptomatic patient event(s). Isolated SVEs were frequent (17.7%, [id number]), SVE Couplets were occasional (4.2%, 19411), and SVE Triplets were occasional (1.8%, 75366). Isolated VEs were rare (<1.0%), VE Couplets were rare (<1.0%), and no VE Triplets were present. On my review: 2 patient triggered events, most correlating to NSR with PACs / brief bursts of AT. No sustained arrhythmias. Very frequent SVE. Would favor a trial of BB therapy. Flecainide can be added if needed. Gamaliel Alegre MD Patient Name: Miriam Davenport : 1940 Ordering Provider: Gamaliel Alegre Indication: R06.00 Dyspnea, unspecified Type of Monitor: Extended Monitoring-Zio Patch Enrollment Dates: 11/03/2021-11/17/2021 Echo 10/17/2021: CONCLUSIONS: - Technically difficult exam due to body habitus. - Exam indication: Shortness of Breath - The left ventricle is small. There is mild concentric left ventricular hypertrophy. Left ventricular systolic function is normal. EF = 61 5% (2D 4-ch.) Grade I left ventricular diastolic dysfunction. - The right ventricle is normal in size. Right ventricular systolic function is normal. - Definity unavailable. - Exam was compared with the prior echocardiographic exam performed on 08/08/2014 (Stress). LABS: Cholesterol, Total (mg/dL) Date Value 10/07/2020 180 Total Cholesterol, Nonfasting (mg/dL) Date Value 10/10/2020 182 HDL Cholesterol (mg/dL) Date Value 10/07/2020 56 HDL Cholesterol, Nonfasting (mg/dL) Date Value 10/10/2020 58 LDL Cholesterol (mg/dL) Date Value 10/07/2020 94 LDL Cholesterol, Nonfasting (mg/dL) Date Value 10/10/2020 98 Triglyceride (mg/dL) Date Value 10/07/2020 152 Triglycerides, Nonfasting (mg/dL) Date Value 10/10/2020 129 ASSESSMENT/PLAN: FIELD Etiology unclear with likely contribution by decontioning but certainly concern of ischemia heart disease possiblility Check MPI and echo Increase routine exercise Frequent PACs Asymptomatic Continue BB DM II Controlled S/p PE, [facility] 2020 with recurrence after stopping AC per patient On apixaban ASIM No tx declines CPAP We had a very long discussion regarding her symptoms and prior remote cardiac testing. We will update her ischemic work up and echo in light of her FIELD then follow up. She does have frequent PACs and PAT but seems to be asymptomatic. We will follow up and review results. In the meantime she should try to walk consistently for exercise and continue efforts at risk factor modification. We discussed her ASIM that may be contributing but she declines any repeat eval or tx. Thank you for allowing me the privilege of participating in the care of your patient. Please do not hesitate to contact me if there are any questions. Dilma Meng DO, FACC, FCCP, FACOI Dilma Meng DO, FACC, FCCP, FACOI CC: Guillaume Dominguez [address] [place] [id number] documented in this encounter [facility] 01-08-2023 Miscellaneous Notes Patient's daughter notified. Geno Franco RN Rx e-scripted to preferred pharmacy Please notify daughter Sara at [phone] Message has been routed to provider and he has 3 days to respond. Nhi Patino MA January 07, 2023 12:26 PM Patients daughter Sara calling in stating that she lives 6 hours from her mother. Sara is requesting a phone call when the RX is signed and sent to pharmacy. Sara states that she has to pick it up for her mother, then set it up Sara [phone] Thank you Veda Cardoza The DME company said that the CGM order should go to [facility]. Order pended below Maia Llanos RN Patients daughter Sara calling in stating that Dexcom needs to be sent to [facility]. Sara is asking for a return call to discuss Dexcom Please call Sara back at [phone] Thank you documented in this encounter [facility] 01-04-2023 Note [facility] 01-04-2023 History of Present illness Narrative Patient presents for B-12 injection. Denies any problems at this time. Patient instructed on any SE of medication, verbalized understanding and agreed to proceed with treatment. Tolerated injection well. Ning Mckeon LPN documented in this encounter [facility] 12-30-2022 Note [facility] 12-30-2022 Instructions Su Nassar MD - 12/30/2022 10:32 AM EDT Assessment / Plan Assessment: 1) Diabetes type 2, sugar control overall better on Mounjaro, but having lows down to sugars in the 70s. Has not had any injuries from the hypoglycemia, but this is dangerous . I'll ask her (as I did before) with help of her daughter (Sara) to back off of the glimepiride to avoid sugars below 100. I will also prescribe the Dexcom G7, which her daughter can monitor to help with adjusting meds to avoid hypoglycemia Unchanged 1) Depression, doesn't feel she needs treatment at this point, not on any meds, (Dr. Dominguez ordered) 2) Vitamin D deficiency 3) Vitamin B12 deficiency, getting monthly injections, 4) hx Gastric bypass, weight dropping most recently, she isn't sure why. 5) Abdominal wall hernias, had surgery, is in study, doesn't know if it was robotic. Plan: 1) stay on the same dose of Mounjaro 2) decrease the glimepiride to 1 pill (4mg) daily. If sugar is below 100 even once, then drop to a half pill. The next time sugar is below 100, then stop the glimepiride 3) start using the Dexcom G7 sensor 4) return in 6-8 weeks virtual and in 6 months in person, will use daughter for the virtual visits via Von Nassar MD documented in this encounter [facility] 12-30-2022 History of Present illness Narrative Assessment / Plan Assessment: 1) Diabetes type 2, sugar control overall better on Mounjaro, but having lows down to sugars in the 70s. Has not had any injuries from the hypoglycemia, but this is dangerous . I'll ask her (as I did before) with help of her daughter (Sara) to back off of the glimepiride to avoid sugars below 100. I will also prescribe the Dexcom G7, which her daughter can monitor to help with adjusting meds to avoid hypoglycemia Unchanged 1) Depression, doesn't feel she needs treatment at this point, not on any meds, (Dr. Dominguez ordered) 2) Vitamin D deficiency 3) Vitamin B12 deficiency, getting monthly injections, 4) hx Gastric bypass, weight dropping most recently, she isn't sure why. 5) Abdominal wall hernias, had surgery, is in study, doesn't know if it was robotic. Plan: 1) stay on the same dose of Mounjaro 2) decrease the glimepiride to 1 pill (4mg) daily. If sugar is below 100 even once, then drop to a half pill. The next time sugar is below 100, then stop the glimepiride 3) start using the [facility] G7 sensor 4) return in 6-8 weeks virtual and in 6 months in person, will use daughter for the virtual visits via Von Nassar MD Data Review daughter has iPhone=Simph[employer] ([phone]) Component Latest Ref Rng & Units 10/10/2020 Iron 41 - 186 ug/dL 34 (L) TIBC 232 - 386 ug/dL 318 Transferrin Saturation 15 - 57 % 11 (L) Zinc 55 - 150 ug/dL 57 Vitamin D 25 Hydroxy 31.0 - 80.0 ng/mL 43.2 PTH, Intact 15 - 65 pg/mL 31 Folate >4.7 ng/mL >20.0 Vitamin B12 232 - 1,245 pg/mL 609 Copper 85 - 155 ug/dL 121 Calcium 8.5 - 10.2 mg/dL 8.9 Component Hemoglobin A1C Latest Ref Rng & Units 4.3 - 5.6 % 03/17/2019 7.5 (H) 10/12/2019 7.8 (H) 02/16/2020 7.6 (H) 06/28/2020 7.6 (H) 10/07/2020 7.7 (H) 08/21/21 6.9 Component Latest Ref Rng & Units 10/07/2020 Protein, Total 6.3 - 8.0 g/dL 6.5 Albumin 3.9 - 4.9 g/dL 3.8 (L) Calcium 8.5 - 10.2 mg/dL 8.7 Bilirubin, Total 0.2 - 1.3 mg/dL 0.3 Alkaline Phosphatase 34 - 123 U/L 103 AST 13 - 35 U/L 10 (L) Glucose 74 - 99 mg/dL 140 (H) BUN 7 - 21 mg/dL 13 Creatinine 0.58 - 0.96 mg/dL 0.55 (L) Sodium 136 - 144 mmol/L 138 Potassium 3.7 - 5.1 mmol/L 4.1 Chloride 97 - 105 mmol/L 103 CO2 22 - 30 mmol/L 25 Anion Gap 9 - 18 mmol/L 10 ALT 7 - 38 U/L 8 Component Latest Ref Rng & Units 10/10/2020 WBC 3.70 - 11.00 k/uL 7.12 RBC 3.90 - 5.20 m/uL 4.09 Hemoglobin 11.5 - 15.5 g/dL 12.9 Hematocrit 36.0 - 46.0 % 38.8 MCV 80.0 - 100.0 fL 94.9 MCH 26.0 - 34.0 pG 31.5 MCHC 30.5 - 36.0 g/dL 33.2 RDW-CV 11.5 - 15.0 % 13.9 Platelet Count 150 - 400 k/uL 237 MPV 9.0 - 12.7 fL 11.1 Component Latest Ref Rng & Units 09/11/2017 Cholesterol, Total <200 mg/dL 189 Triglyceride <150 mg/dL 115 HDL Cholesterol >39 mg/dL 69 LDL Cholesterol <100 mg/dL 97 Non HDL Cholesterol <130 mg/dL 120 Component Latest Ref Rng & Units 10/10/2020 Iron 41 - 186 ug/dL 34 (L) TIBC 232 - 386 ug/dL 318 Transferrin Saturation 15 - 57 % 11 (L) Zinc 55 - 150 ug/dL 57 Vitamin D 25 Hydroxy 31.0 - 80.0 ng/mL 43.2 PTH, Intact 15 - 65 pg/mL 31 Folate >4.7 ng/mL >20.0 Vitamin B12 232 - 1,245 pg/mL 609 Copper 85 - 155 ug/dL 121 Component Latest Ref Rng & Units 10/10/2020 Total Cholesterol, Nonfasting <200 mg/dL 182 Triglycerides, Nonfasting <150 mg/dL 129 HDL Cholesterol, Nonfasting >39 mg/dL 58 LDL Cholesterol, Nonfasting <100 mg/dL 98 Non HDL Cholesterol, Nonfasting <130 mg/dL 124 History Diabetes type 2, on glimepiride 4mg x 2 in AM, also Mounjaro 2.5mg/wk, no problems with this sugars going down into 70s, taking glimepiride 4mg twice a day no problems with Drug history: *Invokana: yeast inf, has these even without this Rx *Byetta: ineffective *Metformin: diarrhea, has stopped Vitamin D deficiency, on calcium 500 mg (+400U vitD) 2x daily, plus calcitriol 0.5 mcg daily Nephrolithiasis s/p lithotripsy, stent Low back and hip pain s/p injections x 3. Context: 1) s/p COVID vaccine Pfizer 2) daughter Sara now helps with her health care Diabetes History Type (1990): dx type 2 diabetes. Control hx Component Hemoglobin A1C Latest Ref Rng & Units 4.3 - 5.6 % 02/26/2017 7.2 (H) 09/11/2017 7.0 (H) 02/25/2018 7.2 (H) 06/22/2018 7.2 10/11/2018 7.6 01/17/2019 7.6 03/17/19 7.5 10/12/19 7.8 02/16/20 7.6 06/28/2020 7.6 01/10/2021 7.0 Intervention hx (): Jordin-en-Y gastric bypass surgery Eye hx ():exam by Dr Carlisle, appear to have refractive change due to better BS control,will confirm in 6 wks. No retinopathy. (09/26/10): exam Alfonso Bartlettmonroe OD, no DM changes (01/2014): exam Alfonso Bartlettmonroe OD, no DM changes (?11/2015): no DM changes per pt (02/2018): no DM changes per pt Renal hx Component Albumin/Creat Ratio Latest Ref Rng 0 - 30 mg/g 05/21/2011 7 05/10/2012 13 03/27/2013 9 03/07/2015 5 02/26/17 <10 06/21/18 38 Component BUN Creatinine Latest Ref Rng & Units 7 - 21 mg/dL 0.58 - 0.96 mg/dL 09/11/2017 18 0.62 02/25/2018 18 0.61 06/21/2018 18 0.51 (L) Vitals hx Vitals 08/18/2016 09/01/2016 10/22/2016 01/30/2017 03/02/2017 SITTING BP 132/76 128/82 130/69 126/76 123/67 Vitals 10/12/2013 12/07/2013 02/09/2014 05/29/2014 06/19/2014 WEIGHT in POUNDS 235 lb 244 lb 237 lb 237 lb 232 lb 12.8 oz (06/19/14): no BP meds or angiotensin drugs Neuro hx (07/16/10): no resting acral dysesthesias Vascular hx Component Latest Ref Rng 02/06/2013 02/05/2014 03/07/2015 Triglyceride 30 - 149 mg/dL 87 119 148 Cholesterol 100 - 199 mg/dL 167 185 189 HDL Cholesterol >55 mg/dL 67 68 63 LDL Cholesterol 60 - 129 mg/dL 83 93 96 Non HDL Cholesterol 90 - 159 mg/dL 100 117 126 (02/14/13): no hx ME, stroke, claudication, intolerant of statins, niacin and welchol Sleep hx (06/19/14): says she has hx mild sleep apnea , intolerant of CPAP because of claustrophobia, was seen by Dr. Gonzalez Exercise hx (06/19/14): no exercise currently ( just had stroke) Medications (06/19/14): no Rx for blood sugars currently. Note that she has history of diarrhea from metformin (06/18/15): metformin ER 500 mg daily (08/18/16): metformin ER 500 mg/d (03/02/17): metformin ER 500 mg 2x/d (09/14/17): metformin ER 500 mg 2x/d (01/17/19): metformin ER 500mg 3x/d in AM (11/16/19): metformin ER 500mg 4x/d (02/20/20): metformin ER 500mg 4x/d (07/02/20): metformin ER 500mg 4x/d (01/10/21): metformin ER 500mg 2x/d, glimepiride 2mg x 2/d Physicians (06/19/14): primary doc is Analia CARBAJAL Res: positive for recent dx pulmonary emboli, on Elequis PHYSICAL EXAM PAST MEDICAL HISTORY 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 Contact dermatitis and other eczema, due to unspecified cause Grade I diastolic dysfunction Irregular heart beat Kidney stone Lichen 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 per [facility] outside facility Apr 1997 MORBID OBESITY 08/18/2007 Obstructive sleep apnea Sleep study 2003 Occlusion and stenosis of carotid artery without mention of cerebral infarction 03/09/2006 mild stenosis shown on u/s at [facility] u/s repeated 02/02/07 with no change Open fracture of tuft of distal phalanx of finger 05/06/2022 PAC (premature atrial contraction) Pulmonary embolism (HCC) Pure hypercholesterolemia Type II or unspecified type diabetes mellitus with renal manifestations, uncontrolled(250.42) Unspecified glaucoma(365.9) Unspecified pruritic disorder PAST SURGICAL HISTORY PAST SURGICAL HISTORY Procedure Laterality Date EGD TRANSORAL BIOPSY SINGLE/MULTIPLE 05/14/2015 EXAM UNDER ANESTHESIA 2019 Vulvar biopsies GASTRIC BYPASS 09/14/2007 HERNIA REPAIR W/MESH 2019 ventral INCISION & DRAINAGE ABSCESS SIMPLE/SINGLE 05/31/2009 ABD WALL and intestine removed LAPS COLECTOMY PRTL W/RMVL TERMINAL ILEUM 02/20/2009 polyps LIG/TRNSXJ FLP TUBE ABDL/VAG APPR UNI/BI 01/29/1970 Tubal ligation NSL/SINUS NDSC SPHENDT RMVL TISS SPHENOID SINUS PAST SURGICAL HISTORY OF 02/29/2008 Left total knee PAST SURGICAL HISTORY OF 04/30/2008 Right total knee FAMILY HISTORY FAMILY HISTORY Problem Relation Age of Onset Breast Cancer Mother cva Stroke Mother Heart Father AAA Colon Cancer Father other (leukemia) Brother SOCIAL HISTORY SOCIAL HISTORY Marital Status: Tobacco Use: Never Alcohol Use: No Drug Use: No Sexual Activity: Not on file MEDICATIONS Prior to Admission Medications: Current Outpatient Prescriptions on File Prior to Visit: cefUROXime (CEFTIN) 250 mg tablet Take 1 tablet by mouth twice daily for 10 days. HYDROcodone-Acetaminophen 7.5-300 mg tab Take 1 tablet by mouth twice daily as needed. cyanocobalamin, Vitamin B12, 1,000 mcg/mL soln Inject 1 mL intramuscularly as directed. clobetasol (TEMOVATE) 0.05 % ointment Apply a thin layer TO AFFECTED AREA every night before bed. lidocaine (XYLOCAINE) 5 % ointment Apply 1 application to affected area twice daily. gabapentin 300 mg capsule Take 1 capsule by mouth three times daily. calcitriol (ROCALTROL) 0.5 mcg capsule Take 1 capsule by mouth once daily. blood sugar diagnostic(FREESTYLE TEST STRIPS) Taking blood sugars once daily BIOTIN 2,500 MCG TAB Take one(1) tablet daily.. ascorbic acid(VITAMIN C 500 MG TAB) Take one(1) tablet daily. calcium carbonate(CALTRATE 600 600 MG (1,500 MG) TAB) Take one(1) tablet twice daily. pnv/iron,carb/om-3/fa/fat 1(PRE-JIMY MULTIVITAMINS WITH MINERALS 27 MG-1 MG-300 MG CAP) Take one(1) tablet daily. ALLERGIES Review of patient's allergies indicates: Asa (Salicylates) Anaphylaxis Avapro (Irbesartan) Swelling Byetta (Exenatide) Comment:Can not remember what effect but not suppose to take it Crestor (Rosuvastat* Erythromycin Etodolac Contraindication-Medical Surgical Comment:Was told never to take NSAID due to bypass surgery. She also developed severe pain after taking Etodolac that was excruciating Lipitor (Atorvastat* Niaspan (Niacin (An* Penicillins Rash Pravachol (Pravasta* Sulfa (Sulfonamide * Rash Zetia (Ezetimibe) Zocor (Simvastatin) Duoderm [Other] Rash Ointments [Other] Comment:Can use lotions/creams, but ointments cause itchy/burning and painful rash. Tape [Other] documented in this encounter [facility] 12-25-2022 Miscellaneous Notes Received voicemail 12-25-22 at 9:49 AM Hi this is Shelley Davenport calling [phone]. I have a procedure scheduled for December 29 and I need to know exactly what I need to do I know I can't eat after midnight and I know I'm supposed to stop taking Eliquis but is it like three days in advance and I think that's it I just wanna make sure I do it all right but I can't find the paper that tells me what all I'm supposed to do or not do so if you could give me a call and tell me I'd really appreciate it. Thank you. Miguel A. Call back to patient to advise that she should hold Eliquis 48 hours prior to procedure. Reviewed pre procedure instructions. Patient is diabetic but does not take insulin. Advised that patient should check sugar and call surgery scheduling if sugar is above 200. If above 250, procedure would not be performed. Patient verbalizes understanding. Offered to send pre procedure instructions via [employer] but she states she has had trouble logging in. documented in this encounter [facility] 12-04-2022 Miscellaneous Notes [facility] called and states needs a script for the test strips and lancets that has frequency of use and dx noted. Please review pending orders. Patient phones requesting refills as follows: Requested Prescriptions Pending Prescriptions Disp Refills blood sugar diagnostic (ACCU-CHEK GUIDE TEST STRIPS) test strip 100 Each 11 Si Strip three times daily. Use as instructed DX: E11.42 Lancets lancets 100 Each 11 Sig: Test blood sugar(s) 3 times daily. Dx: Other DM Code E11.42 Insulin: No Earline Morales LPN documented in this encounter [facility] 11-27-2022 Note [facility] 11-06-2022 Note [facility] 11-06-2022 History of Present illness Narrative Episode Visit Count: 13 Therapist That Will Accept/Oversee The Plan Of Care: Nhi Iverson Start of Care Date: 08/18/22 Onset Date: 05/31/22 Plan of Care Certification Date: 11/06/22 Next Certification Due Date: 11/06/22 REHABILITATION AND SPORTS THERAPY PHYSICAL THERAPY DISCONTINUANCE OF CARE PLAN OF CARE UPDATE: Assessment: Miriam L Issac is discontinued from Physical Therapy services due to Patient/Client declining further intervention.. Patient was seen for 13 visits from Start of Care Date: 08/18/22 to 11/06/2022 and treatment included: Therapeutic exercise, Self-retirement management, and Gait training. Goals for Episode of Care: created on 08/18/22 through 09/29/22 updated 09/17/22 Goals updated on 09/29/2022 through 11/03/22 Goals updated on 11/06/2022. [place] in home exercise program. -- PARTIALLY MET Patient will decrease pain rating by 2 points to meet minimal clinical important difference for numeric pain rating scale. -- PARTIALLY MET Patient will demonstrate increase in hip and leg strength to 4+/5 during manual muscle testing in order to improve function for light functional Tasks. -- Perform walking community distances with wheeled walker and supervision level of assistance with decreased report of symptoms/pain in 4 weeks.(MODIFIED GOAL 09/29/22) -- MET Patient Goals: less pain and get legs stronger pt reports -- PARTIALLY MET SUBJECTIVE: Patient Reason for Visit: Pt. states Not good when asked how her back if feeling. PT asked what has made her pain worse she replies I don't know. When PT asks if the lumbar flexion has continued to help reduce her symptoms, pt. admits that when her back hurts bad enough, she doesn't think of doing the repeated lumbar flexion exercises. Pt. now walks out to the barn and back. She is pleased by this progress, because she has not done this in a year.. Patient Goals: less pain and get legs stronger Pain: Pain Pain Level: 8 Pain Location: Hip - Left, Low Back/Lumbar Spine - Left Frequency: Continuous Post Treatment Pain Post Treatment Pain Level: 3 Post Treatment Pain Location: Low Back/Lumbar Spine - Left PROMIS Scales Higher is Better 09/29/2022 Phys Func - Score 36 (moderate dysfunction) Phys Func - Percentile 8 % Self-Eff Symptom - Score 42 (Average) Self-Eff Symptom - Percentile 21 % T-scores: mean of general population = 50. 5 points is clinically meaningfully difference Percentiles provide an indication of how the patient's score ranks in relation to the general population. Higher percentile rankings indicate better function/quality of life. 50th percentile is the average of the general population and indicates half of respondents had a worse score. OBJECTIVE MEASURES WITH LEVEL OF FUNCTION: TREATMENT: Therapeutic Exercise: 1: seated lumbar flexion repeated 2x10 2: seated B ankle pumps 2x20 3: seated LAQ 2x8 each side 4: seated marches 2x20, alt (10 each leg) 5: sit <> stand 3x3 Skilled Intervention: Patient was educated in proper exercise technique and purpose for exercises. Skilled judgment was provided in selection of appropriate interventions. Correct performance of therapeutic exercises was facilitated with verbal and visual cuing. Educated patient on rationale for performing exercises in regards to decreasing fatigue , increase ease of ADL, and ROM and function . Patient education as noted. Gait Training: Distance (feet): 40' 2x + 100' Gait Cues: cues to slow speed to tolerate a greater distance, pt. refuses to walk further than 40' interval Assistive Device: FWW Assist Level: modified independence Skilled Intervention: Facilitated proper gait cycle with the use of verbal and visual cues for correction of gait deviations identified in the objective section above. Self-Assisted Management: 1: *discussed how lumbar flexion increases the diameter of the intervertebral foramen, and this may be the mechanism by which pt. experiences relief 2: *strongly encouraged pt. to discussed feelings of hopelessness that she frequently states to PT, to her physician 3: *strongly encouraged compliance with HEP exercises to reduce pain and maintain functional strength/independence Skilled Intervention: Skilled judgment in the selection of proper modification for activity of daily living/home management based on clinical presentation, deficits, and needs. Provided written instruction for activities of daily living techniques to facilitate proper performance and compliance. Reviewed patient specific diagnosis in relation to activities of daily living/home management. Activity progression based on professional judgement. Reviewed and educated patient on additions/changes for home program as noted above with an (*). Billing Therapeutic Exercise Treatment Minutes: 25 Self-Care/Home Management Treatment Minutes: 5 Gait Training Treatment Minutes: 10 Total Treatment Time Minutes (timed/untimed): 40 Nhi Iverson PT documented in this encounter [facility] 11-06-2022 Note [facility] 11-03-2022 Note [facility] 11-03-2022 Miscellaneous Notes Patient scheduled with Oralia Garcia CNP in office on 11/06/2022 [place] patient was in to the office today. She had injections done 10/08/2022, follow up with Oralia next week. She is still having issues with persistent pain, rated 10/10 in the afternoon and evening. The injections gave minimal relief for her in the morning. We are going to try low dose Cymbalta to help pain and mood, she notes depression related to her pain. If well tolerated we will increase in a few weeks. Any other thoughts or suggestions or would you like to see her sooner since pain is persistent? documented in this encounter [facility] 11-03-2022 History of Present illness Narrative Patient presents for B-12 injection. Denies any problems at this time. Patient instructed on any SE of medication, verbalized understanding and agreed to proceed with treatment. Tolerated injection well. Ning Mckeon LPN documented in this encounter [facility] 10-27-2022 Note [facility] 10-27-2022 History of Present illness Narrative SUBJECTIVE Miriam Davenport is a 82 year old female here today for a check up on her medical problems. Chief Complaint Patient presents with: Recheck HPI Miriam Davenport is a 82 year old female established patient of Guillaume Dominguez MD who presents today for follow up. Last seen 08/15/[address] Dominguez. Discussed that she was noted to have an irregular heart rhythm with frequent PACs noted on EKG and was referred to cardiology, bilateral carotid artery stenosis with carotid artery ultrasound updated, iron def, vitamin d def, b12 def, and fatigue. She has been working with PT for back pain, sees Dr. Montelongo for pain management, had a procedure 10/08. Did not help. Issues with low back and left hip causing pain. 10/10 in the afternoon and evening. Sees urology for kidney stones. Saw endocrine for DM. Started Mounjaro. No irregular heart beats that she notices. Has an appointment with cardiology in a few weeks. Still on Eliquis, no issues. Not taking her iron pill. Notes depression over her pain being persistent. Still in PT, not sure what else to do. Her medications were reviewed today and her list is now up to date. Medications Current Outpatient Medications Medication Sig apixaban (ELIQUIS) 5 mg tab(s) Take 1 tablet by mouth twice daily. gabapentin (NEURONTIN) 300 mg capsule one in morning, two at bedtime oxybutynin ER (DITROPAN XL) 10 mg 24 hr tablet Take 1 tablet by mouth once daily as needed. OVERACTIVE BLADDER clindamycin (CLEOCIN) 300 mg capsule take 2 capsules by mouth 1 hour prior to appointment ketoconazole (NIZORAL) 2 % cream Apply 1 application to affected area once daily. Continue for a week after rash resolves metoprolol succinate ER (TOPROL XL) 25 mg 24 hr tablet Take 0.5-1 tablets by mouth once daily. As directed ondansetron orally disintegrating (ZOFRAN ODT) 4 mg disintegrating tablet Take 1 tablet by mouth every 6 hours as needed for nausea/vomiting. calcitriol (ROCALTROL) 0.5 mcg capsule Take 1 capsule by mouth once daily. glimepiride (AMARYL) 4 mg tablet Take 2 tablets by mouth daily with breakfast. ferrous sulfate 325 mg (65 mg iron) tablet Take 1 tablet by mouth once daily. (Patient taking differently: Take 1 tablet by mouth once daily. Off and on) fluconazole (DIFLUCAN) 200 mg tablet TAKE 1 TABLET 3x per week clobetasol (TEMOVATE) 0.05 % cream 3x per day for 2 weeks and then twice daily thereafter chlorhexidine (HIBICLENS) 4 % external liquid Wash genitale area once a day for infectious vulvitis diphenhydramine HCl (BENADRYL ORAL) Take by mouth daily at bedtime. cholecalciferol, vitamin D3, (VITAMIN D3 ORAL) Take by mouth once daily. acetaminophen (TYLENOL) 500 mg tablet Take 500 mg by mouth daily at bedtime. CALCIUM CITRATE/VITAMIN D3 (CALCIUM CITRATE + D ORAL) Take 1 capsule by mouth three times daily. BIOTIN 2,500 MCG TAB Take 2,500 mcg by mouth once daily. ascorbic acid(VITAMIN C 500 MG TAB) Take 500 mg by mouth once daily. pnv/iron,carb/om-3/fa/fat 1(PRE- MULTIVITAMINS WITH MINERALS 27 MG-1 MG-300 MG CAP) Take 1 capsule by mouth once daily. DULoxetine (CYMBALTA) 20 mg capsule Take 1 capsule by mouth once daily. tirzepatide (MOUNJARO) 2.5 mg/0.5 mL pen injector Inject 2.5 mg subcutaneously one time a week. (Patient not taking: Reported on 10/27/2022) blood sugar diagnostic (ACCU-CHEK POLY PLUS TEST STRP) test strip Check sugars 3 times daily Blood Sugar Diagnostic, Drum (ACCU-CHEK COMPACT PLUS TEST) strip use to check sugars twice a day Blood-Glucose Meter, Drum-type (ACCU-CHEK COMPACT PLUS CARE) kit USE DIRECTED. COMPOUNDED PRESCRIPTION ONE TOUCH ULTRA 2 TEST STRIPS TESTING 2 TIMES DAILY INSULIN NO DX E11.65 Current Facility-Administered Medications Medication Dose Route Frequency cyanocobalamin 1,000 mcg injection 1,000 mcg INTRAMUSCULAR q 1 MONTH ALLERGIES Allergen Reactions Asa [Salicylates] Anaphylaxis Cephalexin Rash, Diarrhea Severe rash all over as well as severe diarrhea Hydrocodone Itching Itching all over Adhesive Itching Aspirin Anaphylaxis Avapro [Irbesartan] Swelling Byetta [Exenatide] Can not remember what effect but not suppose to take it Crestor [Rosuvastat* Duoderm [Other] Rash Eggs [Egg] Diarrhea Not true allergy Erythromycin Myalgia Etodolac Contraindication-Medical Surgical Was told never to take NSAID due to bypass surgery. She also developed severe pain after taking Etodolac that was excruciating Lipitor [Atorvastat* Niacin Unknown Niaspan [Niacin (An* Nsaids (Non-Steroid* Other: See Comments Was told to avoid all NSAID's due to bypass surgery Ointments [Other] Can use lotions/creams, but ointments cause itchy/burning and painful rash. Penicillins Rash Pravachol [Pravasta* Sulfa (Sulfonamide * Rash Tape [Other] Zetia [Ezetimibe] Zocor [Simvastatin] Metformin GI Upset diarrhea ACTIVE PROBLEM LIST Radiculopathy, Lumbar Region - 08/18/2022 Pain in Left Hip - 12/20/2020 Trochanteric Bursitis of Left Hip - 12/20/2020 Muscle Weakness - 12/20/2020 Multiple Subsegmental Pulmonary Emboli Without Acute Cor Pulmonale (Hcc) - 04/10/2019 Comment: Provoked PE, patient had herniorrhaphy on 03/24. Diagnosed on 03/[address] in ER. Treatment with Xarelto initiated. Uncomplicated Epigastric Hernia - 03/25/2019 Incisional Hernia, Without Obstruction Or Gangrene - 03/17/2019 Spinal Stenosis of Lumbar Region - 11/21/2018 Open Compression Fracture of L1 Lumbar Vertebra, With Routine Healing, Subsequent Encounter - 09/21/2018 Spondylolisthesis of Lumbar Region - 10/20/2017 Si Joint Arthritis - 10/20/2017 Chronic Si Joint Pain - 10/20/2017 Carotid Artery Stenosis Without Cerebral Infarction, Bilateral - 08/12/2016 Aortic Sclerosis - 07/09/2015 History of Jordin-En-Y Gastric Bypass - 04/21/2015 Retrosternal Chest Pain - 04/09/2015 Neck Pain - 04/09/2015 Type 2 Diabetes Mellitus With Peripheral Neuropathy (Hcc) - 10/16/2014 Atypical Chest Pain - 08/08/2014 Murmur, Cardiac - 06/21/2014 Lumbar Strain, Subsequent Encounter - 10/12/2013 Lumbar Spondylosis - 10/12/2013 Lumbar Degenerative Disc Disease - 10/12/2013 Lumbosacral Facet Joint Syndrome - 10/12/2013 Vitamin D Deficiency - 01/25/2013 Sprain of Lumbar Region - 07/15/2012 Disorders of Bursae and Tendons in Shoulder Region, Unspecified - 08/12/2010 Lichen Sclerosus - 08/23/2009 Comment: Bx with squamous hyperplasia per [facility] outside facility Apr 1997 Intervertebral Cervical Disc Disorder With Myelopathy, 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, Lumbar Region - 04/11/2009 Other and 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 Osteopenia - 04/20/2008 Comment: 2012 t score -1.7 at [facility] Contact Dermatitis and Other Eczema, Due to Unspecified Cause - 12/07/2007 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 Anxiety State - 07/28/2007 Pernicious Anemia - 04/13/2007 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 - 03/29/2007 Eating Disorder, Unspecified - 03/29/2007 Occlusion and Stenosis of Carotid Artery Without Mention of Cerebral Infarction - 03/09/2006 Comment: mild stenosis shown on u/s at [facility] u/s repeated 9/5/07 with no change Calculus of Gallbladder Without Mention of Cholecystitis Or Obstruction - 04/09/2005 Comment: No evidence obstruction on HIDA scan 03/04 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 Cardiovascular: Negative. Musculoskeletal: Positive for arthralgias, back pain, gait problem and myalgias. Negative for joint swelling. Psychiatric/Behavioral: Positive for dysphoric mood. Negative for self-injury and suicidal ideas. The patient is nervous/anxious. OBJECTIVE BP 116/78 Pulse 86 SpO2 96% Physical Exam Vitals and nursing note reviewed. Constitutional: General: She is awake. She is not in acute distress. Appearance: Normal appearance. She is well-developed and well-groomed. She is obese. She is not ill-appearing, toxic-appearing or diaphoretic. Comments: Sitting in wheel chair HENT: Head: Normocephalic. Right Ear: External ear normal. Left Ear: External ear normal. Nose: Nose normal. Eyes: General: Vision grossly intact. Conjunctiva/sclera: Conjunctivae normal. Pupils: Pupils are equal, round, and reactive to light. Neck: Vascular: No JVD. Trachea: Trachea normal. Cardiovascular: Rate and Rhythm: Normal rate and regular rhythm. Pulses: Normal pulses. Heart sounds: Normal heart sounds. No murmur heard. Pulmonary: Effort: Pulmonary effort is normal. No accessory muscle usage, prolonged expiration or respiratory distress. Breath sounds: Normal breath sounds. Musculoskeletal: Cervical back: Neck supple. Skin: General: Skin is warm and dry. Capillary Refill: Capillary refill takes less than 2 seconds. Neurological: General: No focal deficit present. Mental Status: She is alert and oriented to person, place, and time. Mental status is at baseline. Psychiatric: Attention and Perception: Attention and perception normal. Mood and Affect: Mood and affect normal. Speech: Speech normal. Behavior: Behavior normal. Behavior is cooperative. Thought Content: Thought content normal. Cognition and Memory: Cognition and memory normal. Judgment: Judgment normal. ASSESSMENT/PLAN: 1. Current moderate episode of major depressive disorder, unspecified whether recurrent (HCC) - ICD9: 296.22, ICD10: F32.1 (primary diagnosis) Start Cymbalta, hopefully this will help pain and mood. 2. Anxiety disorder, unspecified type - ICD9: 300.00, ICD10: F41.9 See above. - DULOXETINE 20 MG CAPSULE,DELAYED RELEASE 3. Radiculopathy, lumbar region - ICD9: 724.4, ICD10: M54.16 See above, will also reach out to pain management. - DULOXETINE 20 MG CAPSULE,DELAYED RELEASE 4. Chronic SI joint pain - ICD9: 724.6, 338.29, ICD10: M53.3, G89.29 See above. - DULOXETINE 20 MG CAPSULE,DELAYED RELEASE 5. Single subsegmental pulmonary embolism without acute cor pulmonale (HCC) - ICD9: 415.19, ICD10: I26.93 On Eliquis, no issues noted. 6. Type 2 diabetes mellitus with peripheral neuropathy (HCC) - ICD9: 250.60, 357.2, ICD10: E11.42 Working with endocrine. Portions of this note have been entered by ancillary staff. I have reviewed and when necessary edited, so that they are an adequate record of my encounter with this patient Please note that parts of this document were created using voice recognition software and therefore may contain grammatical errors. Patient verbalizes understanding of instructions from today's visit and in agreement with treatment plan. Questions answered. Agrees to call the office if questions, concerns of issues with acute symptoms not improving or if they worsen. Return in about 3 months (around 01/27/2023) for Follow up on chronic conditions and medications.. Josefa Caputo APRN-HIMA documented in this encounter [facility] 10-23-2022 Note [facility] 10-23-2022 Note HNO ID: [id number] Author: Charlene Garay Ma Service: ? Author Type: ? Type: Procedures Filed: 10/23/2022 10:26 AM Note Text: [facility] 10-19-2022 Note [facility] 10-12-2022 Miscellaneous Notes Okayed MALGORZATA 08/15/22 NOV 10/27/22 Patient phones requesting refills as follows: Requested Prescriptions Pending Prescriptions Disp Refills apixaban (ELIQUIS) 5 mg tab(s) 60 tablet 11 Sig: Take 1 tablet by mouth twice daily. Please review and advise. Lety Lam documented in this encounter [facility] 10-12-2022 Note [facility] 10-12-2022 History of Present illness Narrative Episode Visit Count: 11 Therapist That Will Accept/Oversee The Plan Of Care: Nhi Iverson Start of Care Date: 08/18/22 Onset Date: 05/31/22 Plan of Care Certification Date: 09/29/22 Next Certification Due Date: 11/03/22 REHABILITATION AND SPORTS THERAPY PHYSICAL THERAPY TREATMENT NOTE ASSESSMENT: Miriam Davenport tolerated the session with increased symptoms. She demonstrated difficulty with safety awareness with sit <> stand from FWW. Limited activity tolerance with standing or sitting >1-2 minutes during rest, also complains with limited tolerance with walking in FWW. The patient will continue to benefit from ongoing skilled physical therapy to progress toward set goals. Current Frequency: 1x/week PLAN FOR NEXT VISIT: Pt. to bring FWW with her. Continue progressing standing activity tolerance and ambluation. Required constant change from sitting and standing with each exercise. SUBJECTIVE: Patient Reason for Visit: Pt. requires to be pushed into clinic with w/c. She does not bring her FWW. She had an injection 10/08/22. Pt. was walking this morninig with a walker without symptoms. Pain: Pain Pain Level: ( right now I feel fine. ) Pain Location: Low Back/Lumbar Spine - Left, Hip - Left Frequency: Continuous Post Treatment Pain Post Treatment Pain Level: 6 Post Treatment Pain Location: Low Back/Lumbar Spine - Left Post Treatment Symptoms: Pt. did not tolerate brief standing, sitting, or ambulation. OBJECTIVE MEASURES WITH LEVEL OF FUNCTION: TREATMENT: Therapeutic Exercise: 1: seated lumbar flexion repeated rolling 85 cm physioball foward 2x10 (low back pain reduces to 8/10 from 10/10, L hip remains 10/10) 2: seated LAQ 1x5 each LE Skilled Intervention: Patient was educated in proper exercise technique and purpose for exercises. Reviewed and educated patient on additions/changes for home exercise program as above (*). Skilled judgment was provided in selection of appropriate interventions. Correct performance of therapeutic exercises was facilitated with verbal, visual, and tactile cuing. Educated patient on rationale for performing exercises in regards to decreasing fatigue , increase ease of ADL, and ROM and function . Patient education as noted. Therapeutic Activity: 1: back up to chair and sit with safety awareness using FWW 5x, pt. requires verbal cues 2: sit > stand 5x, pt. requires cues each time to scoot to edge of chair and push off arm rests prior to stand Skilled Intervention: Insured patient safety with use of gait belt Educated on proper/safe technique for activities performed today. Maximum verbal cues for maintaining neutral spine alignment. Activity progression based on professional judgment. Assisted proper completion of task with verbal, visual, and tactile cueing and correction of abnormal movement patterns. Reviewed and educated patient on additions/changes for home program as noted above with an (*). Correct performance of home program was facilitated with verbal, visual, and tactile cueing. Gait Training: Distance (feet): 100 + 25'+ 100' + 100 Gait Cues: maintain BLE within base of FWW, unable to follow this cue. Pt. speeds up complaining of SOB, unable to follow cues to slow down or take standing rest. Pt. unable to tolerate static standing to rest. Assistive Device: FWW Assist Level: CGAx1 Skilled Intervention: Gait belt utilized during session for safety. Skilled judgment used to assess selection, proper sizing, and proper use of assistive device. Correct performance of home program was facilitated with verbal, visual, and tactile cueing. Self-Assisted Management: 1: *strongly encouraged pt. to bring her own FWW. 2: *discussed possibly considering adding a bed rail to assist with bed mobility at home, pt. reports that her bed is too high but a family member is going to fix this problem soon. Skilled Intervention: Skilled judgment in the selection of proper modification for activity of daily living/home management based on clinical presentation, deficits, and needs. Reviewed patient specific diagnosis in relation to activities of daily living/home management. Activity progression based on professional judgement. Maximum verbal cues for maintaining neutral spine alignment. Reviewed and educated patient on additions/changes for home program as noted above with an (*). Correct performance of home program was facilitated with verbal, visual, and tactile cueing. Billing Therapeutic Exercise Treatment Minutes: 5 Therapeutic Activity Treatment Minutes: 10 Self-Care/Home Management Treatment Minutes: 5 Gait Training Treatment Minutes: 20 Total Treatment Time Minutes (timed/untimed): 40 Nhi Iverson PT documented in this encounter [facility] 10-02-2022 Miscellaneous Notes Letter generated and sent via fax at this time to patient's PCP for approval to hold Eliquis 2 days PRIOR to procedure documented in this encounter [facility] 09-29-2022 Note [facility] 09-29-2022 Note [facility] 09-29-2022 History of Present illness Narrative Patient presents for B-12 injection. Denies any problems at this time. Patient instructed on any SE of medication, verbalized understanding and agreed to proceed with treatment. Tolerated injection well. Ning Mckeon LPN documented in this encounter [facility] 09-26-2022 Miscellaneous Notes Patient scheduled in December in [place] with Dr Meng. 1st attempt to reach patient. Left message for patient to call office to schedule sooner appointment in Cardiology per PCP. Patient can be seen in [place] by Dr Horowitz or [facility] [phone] Should be seen sooner since she has been symptomatic :Patient scheduled with Dr. Meng's first available consult on 01/11. Please advise if that is too far out. documented in this encounter [facility] 09-25-2022 Note [facility] 09-25-2022 Miscellaneous Notes Patient has been identified by name and date of : Yes Requested Prescriptions Pending Prescriptions Disp Refills gabapentin (NEURONTIN) 300 mg capsule 90 capsule 11 Sig: one in morning, two at bedtime RX INSTRUCTIONS: Patient aware RX will be sent to pharmacy. No need to notify patient. Patient states that she only has enough medication for two days. Asking for RX to please be sent into the pharmacy today [id number] Thank you Hope Delio Byrd documented in this encounter [facility] 09-23-2022 Miscellaneous Notes Patient has been identified by name and date of : Yes Patient phones for refill(s): Requested Prescriptions Pending Prescriptions Disp Refills oxybutynin ER (DITROPAN XL) 10 mg 24 hr tablet 90 tablet 1 Sig: Take 1 tablet by mouth once daily as needed. OVERACTIVE BLADDER Date of last office visit in primary care: 08/15/2022 Follow-up: 10/27/2022 Last 2 Encounter Wt Readings: Date: Wt: 09/22/2022 103.9 kg (229 lb) 08/15/2022 108.9 kg (240 lb) Previous labs/tests for medication: Not applicable Please advise. Thank you. Chely Erickson LPN Pharmacy verified in Epic Patient has been identified by name and date of : Yes Patient aware RX will be sent to pharmacy. No need to notify patient. Patient phones for refill(s): Requested Prescriptions Pending Prescriptions Disp Refills oxybutynin ER (DITROPAN XL) 10 mg 24 hr tablet 90 tablet 1 Sig: Take 1 tablet by mouth once daily as needed. OVERACTIVE BLADDER Date of last office visit : 08/15/2022 Date of next office visit : 10/27/2022 Last 2 Encounter Wt Readings: Date: Wt: 09/22/2022 103.9 kg (229 lb) 08/15/2022 108.9 kg (240 lb) Please advise. Natalya Atkinson Pss \ documented in this encounter [facility] 09-23-2022 Note [facility] 09-23-2022 History of Present illness Narrative Radiology Service Progress Note PATIENT NAME: Miriam Davenport DATE OF SERVICE: September 23, 2022 TIME: 12:04 PM PATIENT IDENTITY VERIFICATION COMPLETED USING TWO (2) IDENTIFIERS: Name and Date of confirmed by patient verbally. FALL SCREENING: Has the patient had 2 falls in the last year or 1 fall with injury or currently using an Ambulatory Assistive Device (Walker, Cane, Wheelchair, Crutches, etc.)? Yes, Patient High Risk for Falls What interventions were put in place to prevent falls during this visit? Increased Observations by Caregivers PATIENT GENDER DATA: Female. status: : No status: NO. PATIENT RELEVANT IMPLANT DATA REVIEWED: Not Applicable RADIOLOGY DEPARTMENT: CT; Exam(s) Completed: Abdomen, KUB PERIPHERAL IV DATA: Not applicable SIGNED BY: RT Mario(R) September 23, 2022 12:04 PM documented in this encounter [facility] 09-22-2022 Note [facility] 09-17-2022 Note [facility] 09-17-2022 History of Present illness Narrative Episode Visit Count: 8 Therapist That Will Accept/Oversee The Plan Of Care: Veda Vital PT Start of Care Date: 08/18/22 Onset Date: 05/31/22 Plan of Care Certification Date: 08/18/22 Next Certification Due Date: 09/30/22 Patient Identified by Name and Date of : Yes [facility] PHYSICAL THERAPY PROGRESS REPORT PLAN OF CARE UPDATE: Assessment: Miriam Davenport demonstrates minimal improvement in strength , standing, walking, and physical activities. She has progressed toward goals. Patient continues to present with impairments in ADL's, gait, independence in exercise, overall function, and symptom management that interfere with . Current prognosis is Poor due to: chronic nature of impairments, limited tolerance to activity . She will benefit from continued skilled therapy services to meet the updated goals for this plan of care as noted below. Goals for Episode of Care: created on 08/18/22 through 09/29/22 updated 09/17/22 [place] in home exercise program./ partially achieved Patient will decrease pain rating by 2 points to meet minimal clinical important difference for numeric pain rating scale./ partially achieved Patient will demonstrate increase in hip and leg strength to 4+/5 during manual muscle testing in order to improve function for light functional tasks./ partially achieved Perform walking with wheeled walker with decreased report of symptoms/pain in 4 weeks./ partially achieved Patient Goals: less pain and get legs stronger pt reports/ not achieved Planned Interventions, Frequency, and Duration: 1x/week, 4 weeks Total Number of Visits Planned: 4 Patient to be seen for Therapeutic exercise (22856), Neuromuscular re-education (84318), Manual therapy (37060), Self-retirement management (02546), Patient/Family/Caregiver Education, Gait Training (39170) PLAN FOR NEXT VISIT: Continue to work on core and LE strength, Increased ambulation with wheeled walker. SUBJECTIVE: Patient Reason for Visit: Pt notes that she is feeling better today. She notes that she is doing exs but splits them up at different times. No change in level of activities she is able to do at home. Sometimes uses walker and sometimes not at home but uses it when going out. she notes that she does move around the house throughout the day. 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 Pain: Pain Pain Level: 4 Pain Location: Low Back/Lumbar Spine - Left Description: Aching, Throbbing Frequency: Continuous Post Treatment Pain Post Treatment Pain Level: No Change Post Treatment Pain Location: Low Back/Lumbar Spine - Left PROMIS Scales T-scores: mean of general population = 50. 5 points is clinically meaningfully difference Percentiles provide an indication of how the patient's score ranks in relation to the general population. Higher percentile rankings indicate better function/quality of life. 50th percentile is the average of the general population and indicates half of respondents had a worse score. OBJECTIVE MEASURES WITH LEVEL OF FUNCTION: Spine Observations L Lumbar Spine Palpation Tenderness: Paraspinals, PSIS (posterior superior iliac spine) Lumbar Spine AROM Lumbar Flexion: Normal Lumbar Extension: Moderate limitation (painful) LE Strength Trunk Strength: 3-/5 R Hip Flexion (L2): 4-/5 R Knee Extension (L3): 5/5 R Knee Flexion: 5/5 R Ankle Dorsiflexion (L4): 5/5 L Hip Flexion (L2): 4/5 L Hip ADduction: 4/5 L Knee Extension (L3): 5/5 L Knee Flexion: 5/5 L Ankle Dorsiflexion (L4): 5/5 Functional Strength Functional Strength: requires only light arm assist for sit to stand. decreased endurance for ambulation Gait Weight Bearing Status: FWB Gait Device: Wheeled Walker General Deviations/Observations: Berna decreased, Step length decreased TREATMENT: Therapeutic Exercise: 1: Seated scifit stepper5 min seat #14 discussed status and worked on endurance 2: seated TA 1x10 , unable to do more d/t pain 3: pink rep band scapular retraction 2x10 4: pillow hip adduction 2x12 5: blue rep band trunk flexion 1x10, unable to do more d/t pain 6: blue rep band trunk extension 2x10 7: ambulation for endurance with walker 20'x3 8: LAQ 2x10 alternating 9: pink rep band hip abduction 2x10 10: pink rep band hamstring curls 2x10 B Skilled Intervention: Skilled judgment was provided in selection of appropriate interventions. Correct performance of therapeutic exercises was facilitated with verbal and visual cuing. Billing Therapeutic Exercise Treatment Minutes: 40 Total Treatment Time Minutes (timed/untimed): 40 Veda Vital PT documented in this encounter [facility] 09-16-2022 Note [facility] 09-14-2022 Note [facility] 09-14-2022 History of Present illness Narrative [facility] Date: September 14, 2022 - 10:26 AM Chief Complaint: left lower back __ SUBJECTIVE: Ms. Davenport presents to the [facility] for a follow up appointment regarding chronic lower back pain. She states that since the last visit symptoms have been persistent. The pain is located in the left gluteal region and does not radiate. // The pain is described as soreness and is rated as 7 on a scale of 0-10. The patient Denies numbness and tingling. Symptoms interfere with walking, bathing, sleeping, cooking, cleaning, physical activity. The pain is exacerbated by physical activity. The pain is mitigated by not moving. She is not currently receiving medications through the [facility]. REVIEW OF SYSTEMS: Constitutional: (-) Fever (-) Night Sweats (-) Weight Gain (-) Weight Loss (-) Fatigue Cardiovascular: (+) Chest Pain (-) Palpitations (-) Lightheadedness (-) Swelling of Ankles (-) Hx Heart Surgery Respiratory: (-) Shortness of Breath (-) Cough (-) Wheezing (-) Snoring Gastrointestinal: (-) Incontinence (-) Abdominal Pain (-) Diarrhea (-) Constipation (-) Nausea/Vomiting (-) Heart Burn Endocrine: (-) Thyroid Disorder (+) Diabetes Hematologic: (-) Prolonged Bleeding (+) Easy Bruising Genitourinary: (-) Incontinence (-) Frequency (-) Urinary Urgency Skin: (-) Rashes (-) Itching (-) Other Lesions Neurologic: (-) Headache (-) Double Vision (-) Confusion (-) Paralysis Psychiatric: (-) Depression (-) Anxiety (-) Delusions (-) Hallucinations (-) Personal History of Alcohol or Substance Abuse (-) Family History of Alcohol or Substance Abuse __ 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 Contact dermatitis and other eczema, due to unspecified cause Grade I diastolic dysfunction Kidney stone Lichen 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 per [facility] outside facility Apr 1997 MORBID OBESITY 08/18/2007 Obstructive sleep apnea Sleep study 2003 Occlusion and stenosis of carotid artery without mention of cerebral infarction 03/09/2006 mild stenosis shown on u/s at [facility] u/s repeated 02/02/07 with no change Open fracture of tuft of distal phalanx of finger 05/06/2022 Pulmonary embolism (HCC) Pure hypercholesterolemia Type II or unspecified type diabetes mellitus with renal manifestations, uncontrolled(250.42) Unspecified glaucoma(365.9) Unspecified pruritic disorder PAST SURGICAL HISTORY Procedure Laterality Date EGD TRANSORAL BIOPSY SINGLE/MULTIPLE 05/14/2015 EXAM UNDER ANESTHESIA 2020 Vulvar biopsies GASTRIC BYPASS 09/14/2007 HERNIA REPAIR W/MESH 2019 ventral INCISION & DRAINAGE ABSCESS SIMPLE/SINGLE 05/31/2009 ABD WALL and intestine removed LAPS COLECTOMY PRTL W/RMVL TERMINAL ILEUM 02/20/2009 polyps LIG/TRNSXJ FLP TUBE ABDL/VAG APPR UNI/BI 01/29/1970 Tubal ligation NSL/SINUS NDSC SPHENDT RMVL TISS SPHENOID SINUS PAST SURGICAL HISTORY OF 02/29/2008 Left total knee PAST SURGICAL HISTORY OF 04/30/2008 Right total knee ALLERGIES Allergen Reactions Asa [Salicylates] Anaphylaxis Cephalexin Rash, Diarrhea Severe rash all over as well as severe diarrhea Hydrocodone Itching Itching all over Adhesive Itching Aspirin Anaphylaxis Avapro [Irbesartan] Swelling Byetta [Exenatide] Can not remember what effect but not suppose to take it Crestor [Rosuvastat* Duoderm [Other] Rash Eggs [Egg] Diarrhea Not true allergy Erythromycin Myalgia Etodolac Contraindication-Medical Surgical Was told never to take NSAID due to bypass surgery. She also developed severe pain after taking Etodolac that was excruciating Lipitor [Atorvastat* Niacin Unknown Niaspan [Niacin (An* Nsaids (Non-Steroid* Other: See Comments Was told to avoid all NSAID's due to bypass surgery Ointments [Other] Can use lotions/creams, but ointments cause itchy/burning and painful rash. Penicillins Rash Pravachol [Pravasta* Sulfa (Sulfonamide * Rash Tape [Other] Zetia [Ezetimibe] Zocor [Simvastatin] Metformin GI Upset diarrhea Current Outpatient Medications Medication Sig methocarbamol (ROBAXIN) 500 mg tablet Take 1 tablet by mouth twice daily as needed. ketoconazole (NIZORAL) 2 % cream Apply 1 application to affected area once daily. Continue for a week after rash resolves metoprolol succinate ER (TOPROL XL) 25 mg 24 hr tablet Take 0.5-1 tablets by mouth once daily. As directed blood sugar diagnostic (ACCU-CHEK POLY PLUS TEST STRP) test strip Check sugars 3 times daily metFORMIN ER (GLUCOPHAGE XR) 500 mg 24 hr tablet Take 4 tablets by mouth daily with breakfast. (Patient taking differently: Take 500 mg by mouth daily with breakfast.) ondansetron orally disintegrating (ZOFRAN ODT) 4 mg disintegrating tablet Take 1 tablet by mouth every 6 hours as needed for nausea/vomiting. calcitriol (ROCALTROL) 0.5 mcg capsule Take 1 capsule by mouth once daily. glimepiride (AMARYL) 4 mg tablet Take 2 tablets by mouth daily with breakfast. ferrous sulfate 325 mg (65 mg iron) tablet Take 1 tablet by mouth once daily. (Patient taking differently: Take 1 tablet by mouth once daily. Off and on) fluconazole (DIFLUCAN) 200 mg tablet TAKE 1 TABLET 3x per week clobetasol (TEMOVATE) 0.05 % cream 3x per day for 2 weeks and then twice daily thereafter chlorhexidine (HIBICLENS) 4 % external liquid Wash genitale area once a day for infectious vulvitis oxybutynin ER (DITROPAN XL) 10 mg 24 hr tablet Take 1 tablet by mouth once daily as needed. OVERACTIVE BLADDER apixaban (ELIQUIS) 5 mg tab(s) Take 1 tablet by mouth twice daily. gabapentin (NEURONTIN) 300 mg capsule one in morning, two at bedtime Blood Sugar Diagnostic, Drum (ACCU-CHEK COMPACT PLUS TEST) strip use to check sugars twice a day diphenhydramine HCl (BENADRYL ORAL) Take by mouth daily at bedtime. cholecalciferol, vitamin D3, (VITAMIN D3 ORAL) Take by mouth once daily. Blood-Glucose Meter, Drum-type (ACCU-CHEK COMPACT PLUS CARE) kit USE DIRECTED. acetaminophen (TYLENOL) 500 mg tablet Take 500 mg by mouth daily at bedtime. COMPOUNDED PRESCRIPTION ONE TOUCH ULTRA 2 TEST STRIPS TESTING 2 TIMES DAILY INSULIN NO DX E11.65 CALCIUM CITRATE/VITAMIN D3 (CALCIUM CITRATE + D ORAL) Take 1 capsule by mouth three times daily. BIOTIN 2,500 MCG TAB Take 2,500 mcg by mouth once daily. ascorbic acid(VITAMIN C 500 MG TAB) Take 500 mg by mouth once daily. pnv/iron,carb/om-3/fa/fat 1(PRE- MULTIVITAMINS WITH MINERALS 27 MG-1 MG-300 MG CAP) Take 1 capsule by mouth once daily. Current Facility-Administered Medications Medication Dose Route Frequency cyanocobalamin 1,000 mcg injection 1,000 mcg INTRAMUSCULAR q 1 MONTH I have reviewed the nurses notes and I am aware of the family/social history. Since the last evaluation the medical history has not changed. PDMP website checked and validated. All prescriptions have been APPROPRIATELY filled. No suspicious activity was identified. 09/14/2022 by Esequiel Montelongo MD Narcotic Agreement reviewed and signed?: N/A on September 14, 2022 Urine Panel: No results found for: UQCANN, UQBNZL, NDI8SQK, UQAMPH, UQMAMP, UQBUPRE, UQNORBUP, UQMTHD, UQEDDP, UQTRAM, UQDTRM, UQFNTL, UQNFTL, UQCODE, UQMORP, UQDCDN, UQHCOD, UQOXYC, UQHMOR, UQOXYM, UQCREA, UQPH, UQSPGR, UQOXID, UQSPQ The pain panel was N/A PHYSICAL EXAMINATION: Performed in conjunction with observation. The patient was alert and oriented x3. The patient was in no acute distress. Lungs: Clear, negative for dyspnea or distress. CVR: Regular Rate. Negative for SOB or peripheral edema. Neck: Supple. The range of motion was intact. Back: Range of motion of the trunk was intact. Left lumbosacral tenderness. Flexion to extension reproduced concordant pain. SLR: Equivocal on the left. Facet Loading: Negative with axial loading and extension. SI joint: Negative PSIS tenderness. Extremities: no reported edema or erythema. Motor: Negative focal deficits Gait: Slow to stand with flexed posture. ASSESSMENT: Spondylolisthesis of lumbar region (primary encounter diagnosis) Chronic si joint pain Spinal stenosis of lumbar region, unspecified whether neurogenic claudication present Pain in left hip Radiculopathy, lumbar region PLAN: Prior available imaging studies were reviewed. Findings were discussed. Injection history was reviewed. Medication use and compliance were reviewed. 1. Prior imaging studies include MRI of the lumbar spine was again reviewed with the patient. She does have spondylolisthesis at L5-S1 with foraminal narrowing that is significantly worse on the left side. This may be contributing to her pain symptoms. Discussed injection options. 2. Interventional procedure options discussed. Left L5-S1 lumbar transforaminal injection as a diagnostic/therapeutic approach. 3. Trial of Robaxin 500 mg 1 p.o. twice daily as needed. 4. Encouraged regular home exercise program. Discussed improving the strength of the lumbar extensor muscle groups. Given her instructions utilizing resistance band. Specific instructions are 10 reps x3 twice a day. 5) F/U in 3 months The treatment plan was discussed with the patient during the office visit and they verbalized an understanding of it. I have discussed and confirmed the above treatment plan with the patient and I have reviewed the nurses notes and I am aware of the family/social history. I have confirmed ROS findings. Esequiel Montelongo MD cc: Dr. Guillaume Dominguez MD cc: No referring provider defined for this encounter. Phone: N/A Fax: Results of consultation to be transmitted via electronic medical record for those providers who practice within [facility] or with access to [employer] via [facility], or via letter. 1. This document has been created with the use of voice recognition technology. It may contain inaccuracies: (e.g. misspellings, inaccurate syntax or word sense) that have escaped review. 2. The nurse practitioner, nursing staff and medical assistants are a major part of YOUR TREATMENT TEAM and will be handling your phone calls and inquiries, if any. Unless explicitly told otherwise at the time of your office visit, your study results and ensuing treatment plans will be discussed during your follow-up appointment. If you do not have a follow-up appointment and wish to discuss any issues, please set up an appointment. 3. It is my practice to not fill disability or any other insurance-related forms/documentation. All of the office notes, study results, and other pertinent documentation generated as part of your evaluation will be available to you and to your Primary Care Physician (PCP). Use of this material to complete such forms will be at the discretion of your PCP/referring physician. documented in this encounter [facility] 09-11-2022 Miscellaneous Notes Patient returned call and was scheduled in next available. Called preferred number on file-no answer. Left voicemail relaying RN's recommendations and asked patient to contact office to schedule appointment with Dr. Raymundo Tate Patient left voicemail 09/11/2022 at 1320 Patent contacting office due to continuing pain Patient stated her pain was in the hip Patient has been participating in physical therapy Recommend a follow up with Dr. Montelongo for updated assessment and to determine additional recommendations Will forward to clerical team to assist documented in this encounter [facility] 09-10-2022 Note [facility] 09-10-2022 History of Present illness Narrative Episode Visit Count: 6 Therapist That Will Accept/Oversee The Plan Of Care: Veda Vital PT Start of Care Date: 08/18/22 Onset Date: 05/31/22 Plan of Care Certification Date: 08/18/22 Next Certification Due Date: 09/30/22 Patient Identified by Name and Date of : Yes REHABILITATION AND SPORTS THERAPY PHYSICAL THERAPY TREATMENT NOTE ASSESSMENT: Miriam Davenport tolerated the session with decreased symptoms. She demonstrated improvements in endurance with additional reps of exercises. Pt stated half way through her session she felt her legs were used up. The patient will continue to benefit from ongoing skilled physical therapy to progress toward set goals. PLAN FOR NEXT VISIT: Work on walking around gym with or without walker. SUBJECTIVE: Patient Reason for Visit: Pt reports that she feels very weak and tired today, thinks she got too much sleep. Pain: Post Treatment Pain Post Treatment Symptoms: I feel better than when I first came in OBJECTIVE MEASURES WITH LEVEL OF FUNCTION: TREATMENT: Therapeutic Exercise: 1: Seated scifit stepper5 min seat #14 discussed status and worked on endurance 2: seated TA 2x10 3: pink rep band seated hip abduction 2x10 4: pillow hip adduction 2x10 5: Seated pink theraband hamstring curls 2x10 B 6: LAQ 1x2 , thne 1x5 on LLE , 2x5 on RLE (Pt stated she couldn't do it on the LLE due to being tired and weak) Skilled Intervention: Patient was educated in proper exercise technique and purpose for exercises. Skilled judgment was provided in selection of appropriate interventions. Correct performance of therapeutic exercises was facilitated with verbal and visual cuing. Manual Therapy: Soft Tissue Mobilization: with lacrosse ball to left L/S region x5 min. while sitting upright Skilled Intervention: Manual skills to improve joint mobility, ROM, and decrease pain. Utilized anatomy knowledge of the therapist, and assessment of patient's response to intervention. Billing Therapeutic Exercise Treatment Minutes: 40 Manual TherapyTreatment Minutes: 5 Total Treatment Time Minutes (timed/untimed): 45 Lucia Rojas PTA/Veda Vital PT documented in this encounter [facility] 09-08-2022 Note [facility] 09-03-2022 Note [facility] 09-03-2022 History of Present illness Narrative Episode Visit Count: 4 Therapist That Will Accept/Oversee The Plan Of Care: Veda Vital PT Start of Care Date: 08/18/22 Onset Date: 05/31/22 Plan of Care Certification Date: 08/18/22 Next Certification Due Date: 09/30/22 Patient Identified by Name and Date of : Yes REHABILITATION AND SPORTS THERAPY PHYSICAL THERAPY TREATMENT NOTE ASSESSMENT: Miriam Davenport tolerated the session with expected muscle soreness. She demonstrated improvements in endurance for exs. Arrives again with wheelchair but able to ambulate 15'x1 with hands on assist no walker in dept. . The patient will continue to benefit from ongoing skilled physical therapy to progress toward set goals. PLAN FOR NEXT VISIT: increase reps , add scapular retraction with wand SUBJECTIVE: Patient Reason for Visit: Pt reports that she is doing terrible . States that it was too hot in her house last night for sleeping. Pain: Pain Pain Level: (not quantified) Pain Location: Low Back/Lumbar Spine - Left Post Treatment Pain Post Treatment Pain Level: No Change OBJECTIVE MEASURES WITH LEVEL OF FUNCTION: good TA contraction with exs TREATMENT: Therapeutic Exercise: 1: Seated scifit stepper5 min seat #14 discussed status and worked on endurance 2: seated TA 2x10 3: seated TA with alternating arm lifts 1x10 4: pillow hip adduction 2x10 5: heel slides seated 2x10 B 6: seated blue rep band trunk flexion 2x10 7: pink rep band seated hip abduction 2x10 8: LAQ 1x10 wtih effort Skilled Intervention: Patient was educated in proper exercise technique and purpose for exercises. Skilled judgment was provided in selection of appropriate interventions. Correct performance of therapeutic exercises was facilitated with verbal and visual cuing. Patient education as noted. Manual Therapy: Soft Tissue Mobilization: with lacrosse ball to left L/S region x5 min. while sitting upright Skilled Intervention: Manual skills to improve joint mobility, ROM, and decrease pain. Utilized anatomy knowledge of the therapist, and assessment of patient's response to intervention. Billing Therapeutic Exercise Treatment Minutes: 35 Manual TherapyTreatment Minutes: 5 Total Treatment Time Minutes (timed/untimed): 40 Veda Vital PT documented in this encounter [facility] 09-01-2022 Note [facility] 09-01-2022 Note [facility] 09-01-2022 History of Present illness Narrative Episode Visit Count: 3 Therapist That Will Accept/Oversee The Plan Of Care: Veda Vital PT Start of Care Date: 08/18/22 Onset Date: 05/31/22 Plan of Care Certification Date: 08/18/22 Next Certification Due Date: 09/30/22 Patient Identified by Name and Date of : Yes REHABILITATION AND SPORTS THERAPY PHYSICAL THERAPY TREATMENT NOTE ASSESSMENT: Miriam Davenport tolerated the session with no issues. She demonstrated improvements in tolerance to exs. Able to transfer from W/c to chair with guarding only and ambulated 10'x1 with no assistive device and therapist hand hold with good form and stability . The patient will continue to benefit from ongoing skilled physical therapy to progress toward set goals. PLAN FOR NEXT VISIT: continue to advance exs as tolerated SUBJECTIVE: Patient Reason for Visit: Pt reports that she has alot of pain in back and hip . today points to L/S region , States that she has a new mattress and slept 8 hours last night which is more than usual. she notes that 2 days ago she had no pain at all. She continues to perform home exs. . States that she is unable to use walker to day because it is too painful Pain: Pain Pain Level: 8 Pain Location: Low Back/Lumbar Spine - Left Post Treatment Pain Post Treatment Pain Level: No Change OBJECTIVE MEASURES WITH LEVEL OF FUNCTION: decreased pain with trunk flexion activities TREATMENT: Therapeutic Exercise: 1: Seated scifit stepper 3 minutes 30 seconds seat #14 2: seated TA 1x10 3: seated TA with alternating arm lifts 1x10 4: pillow hip adduction 2x10 5: heel slides seated 1x10 B 6: seated green rep band trunk flexion 2x10 7: pink rep band seated hip abduction 2x10 Skilled Intervention: Patient was educated in proper exercise technique and purpose for exercises. Reviewed and educated patient on additions/changes for home exercise program . Skilled judgment was provided in selection of appropriate interventions. Provided written instruction for home exercise program to facilitate proper performance and compliance. Correct performance of therapeutic exercises was facilitated with verbal and visual cuing. Patient education as noted. Manual Therapy: Soft Tissue Mobilization: with lacrosse ball to left L/S region x4 min. while sitting upright Skilled Intervention: Manual skills to improve joint mobility, ROM, and decrease pain. Utilized anatomy knowledge of the therapist, and assessment of patient's response to intervention. Home Exercise Program Assigned: 1: add green rep band trunk flexion Billing Therapeutic Exercise Treatment Minutes: 38 Manual TherapyTreatment Minutes: 4 Total Treatment Time Minutes (timed/untimed): 42 Veda Vital PT documented in this encounter [facility] 09-01-2022 History of Present illness Narrative Patient presents for B-12 injection. Denies any problems at this time. Patient instructed on any SE of medication, verbalized understanding and agreed to proceed with treatment. Tolerated injection well. Ning Mckeon LPN documented in this encounter [facility] 08-26-2022 Miscellaneous Notes Spoke with patient on phone. Aware the office visit from 08/15/22 is closed and she can access via [employer]. Patient requesting copy be printed and sent to her, address checked and correct. Patient inquiring as to whether Cardiology Consult could be scheduled sooner than December, her daughter worried about her waiting that long. Patient may agree to go to [place] if can schedule sooner. Patient aware staffing will call and assist with looking into options. Riya Gibson LPN Closed note Should be able to view now. My apologies--forgot needed to close note so can see AVS Dr. Dominguez please complete OV notes from 08/15/2022. Chely Erickson LPN Patient reports she had appt with pcp 2 Wednesday's ago, and did not receive her after visit summary. Unable to access her MyChart. 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 documented in this encounter [facility] 08-25-2022 Note [facility] 08-19-2022 Note [facility] 08-19-2022 History of Present illness Narrative Episode Visit Count: 1 Therapist That Will Accept/Oversee The Plan Of Care: Veda Vital PT Start of Care Date: 08/18/22 Onset Date: 05/31/22 Plan of Care Certification Date: 08/18/22 Next Certification Due Date: 09/30/22 Patient Identified by Name and Date of : Yes REHABILITATION AND SPORTS THERAPY PHYSICAL THERAPY EVALUATION PLAN OF CARE: Assessment: Miriam Davenport presents with chief complaint of left lateral hip pain which appears consistent with bursitis.( also history of back pain and stenosis but not primary complaint) that interferes with walking in the community, physical activities . She presents with impairments in ADL's, gait, independence in exercise, overall function, range of motion, strength, symptom management, and tissue tenderness. Patient did not complete the PROMIS (Patient Reported Outcome Measures Information System). Prognosis for therapy is Poor due to: chronic nature of impairments, limited tolerance to activity . She will benefit from skilled therapy services to meet the goals established for this plan of care as noted below. Goals for Episode of Care: created on 08/18/22 through 09/29/22 [place] in home exercise program. Patient will decrease pain rating by 2 points to meet minimal clinical important difference for numeric pain rating scale. Patient will demonstrate increase in hip and leg strength to 4+/5 during manual muscle testing in order to improve function for light functional tasks. Perform walking with wheeled walker with decreased report of symptoms/pain in 4 weeks. Patient Goals: less pain and get legs stronger Planned Interventions, Frequency, and Duration: Current Frequency: 2x/week Duration: 4 weeks Total Number of Visits Planned: 8 Planned Treatment Interventions: Therapeutic exercise (64523), Neuromuscular re-education (61948), Manual therapy (01693), Self-retirement management (09043), Gait Training (67454), Patient/Family/Caregiver Education PLAN FOR NEXT VISIT: Will work on LAQ, TA seated, sit to stand Patient demonstrates good understanding of plan of care and treatment. The above goals and plan of care were discussed and agreed upon by patient/family. SUBJECTIVE: Miriam Davenport is a 82 year old female seen today for Pt notes that she has long standing back issues. Had 4th injection on Jul 23 which did not help . Pt reports that legs are weak. Pain in left lateral hip and lower part of back . Hip pain is the worst. Pt has been using wheeled walker for one year. Does not use it at home all the time. States that she is doing better than usual today Patient Goals: less pain and get legs stronger Functional Limitations: walking in the community, physical activities Prior Level of Function: Independent without limitations Relevant History Employment: Retired Home Environment Patient Lives With: Spouse Home Type: Multi-Level Entry To Home: Stairs, With Rail Equipment Owned: Shower Chair, Walker- Wheeled Intake Information: Prescription present Previous Treatment: Injections Spine History Pain is Worse Always: Standing, Walking Pain is Better Always: Sitting Sleeping Position: Side lying right Sleep Affected by Pain: Pain awakens, Pain keeps from falling asleep Pain: Pain Pain Level: 5 (pain increases by end of day) Pain Location: Hip - Left Description: Aching Post Treatment Pain Post Treatment Pain Level: Worse Post Treatment Pain Location: Hip - Left Post Treatment Pain Description: Aching PROMIS Scales T-scores: mean of general population = 50. 5 points is clinically meaningfully difference Percentiles provide an indication of how the patient's score ranks in relation to the general population. Higher percentile rankings indicate better function/quality of life. 50th percentile is the average of the general population and indicates half of respondents had a worse score. OBJECTIVE MEASURES WITH LEVEL OF FUNCTION: Posture / Alignment Posture: Fair, Rounded shoulders Hip Observations L Hip Palpation Tenderness: Greater trochanter Spine Observations L Lumbar Spine Palpation Tenderness: PSIS (posterior superior iliac spine), Trochanteric bursa, Greater trochanter Sensation - Lumbar Sensation: Impaired Impaired Sensation: (pt reports decreased sensation in feet neuropathy / diabetes) Lumbar Spine AROM Lumbar Flexion: Normal (no change of hip pain) LE Flexibility Flexibility: IT Band Flexibility L IT Band Flexibility: tightness and soreness noted with stretching LE Strength Trunk Strength: 3-/5 R Hip Flexion (L2): 3+/5 R Hip ABduction: 5/5 R Knee Extension (L3): 5/5 R Knee Flexion: 5/5 L Hip Flexion (L2): 3-/5 L Hip ABduction: 4-/5 L Hip ADduction: 3+/5 (pain with reistance) Functional Strength Functional Strength: Uses arm to assist sit to stand Gait Weight Bearing Status: FWB Gait: Independent Gait Device: Wheeled Walker Gait Deviations: General Deviations General Deviations/Observations: Berna decreased, Step length decreased Education: Education Learning Preferences: Demonstration, Explanation, Performance, Printed Materials Barriers: None Learning/educational needs: Home exercise program, Plan of Care Education Provided: Yes, see treatment interventions for education provided Education Provided To: Patient Education Mode/Type: Demonstration, Explanation/Discussion, Literature/Printed Materials, Performance Response to Education/Teach Back: States/Identifies, Return Demonstration TREATMENT: PT Treatment Interventions: Therapeutic Exercise, Self-Assisted Management Evaluation Therapeutic Exercise: 1: seated pink rep band hip abduction left 1x10 2: moving left foot over to right foot in sitting for hip adduction 10 sec hold x3 3: attempted hip adduction with pillow which was painful and discontinued Skilled Intervention: Patient was educated in proper exercise technique and purpose for exercises. Skilled judgment was provided in selection of appropriate interventions. Provided written instruction for home exercise program to facilitate proper performance and compliance. Correct performance of therapeutic exercises was facilitated with verbal and visual cuing. Patient education as noted. Self-Assisted Management: 1: instruction in use of ice 10 min at least 2x/day to lateral hip 2: instruction in massage to lateral hip at least 2x/day Skilled Intervention: Skilled judgment in the selection of proper modification for activity of daily living/home management based on clinical presentation, deficits, and needs. Provided written instruction for activities of daily living techniques to facilitate proper performance and compliance. Home Exercise Program Assigned: 1: as outlined above Billing * Evaluation Low Complexity: 1 Unit Therapeutic Exercise Treatment Minutes: 10 Self-Care/Home Management Treatment Minutes: 15 Total Treatment Time Minutes (timed/untimed): 45 Veda Vital PT documented in this encounter [facility] 08-15-2022 Note [facility] 08-15-2022 Instructions Guillaume Dominguez MD - 08/15/2022 11:48 AM EDT To help prevent itching can take Claritin (loratadine) 10mg tablets 1 to 2 pills daily. Okay to take Tylenol up to 3000 mg per day (1 to 2 pills at a time; up to every 4 to 6 hours). Labs ordered so may do anytime (unless get call that Dr. Meng can get you in next week, then can decide if he wants to get other labs in addition before going to lab) documented in this encounter [facility] 08-15-2022 History of Present illness Narrative This note was created using [employer]. Subjective Miriam Davenport is a 82 year old female. Patient presents with: Headache SUBJECTIVE: Miriam Davenport is a 82 year old year old ladt here today for follow up appointment for review of medical conditions: Headaches. Also asked about med for pain. Tylenol is what has been using. Does help. Tylenol ES taking 1 per day. Noted sometimes gets itching. Starts in nose then affects face and scalp. Gets everyday between 4 and 6. Cannot take NSAIDs. Gets hard time breathing. Winded just walking to kitchen and back. Past week or two. No recent illness. Sinus issues with allergies acting up. Noemy [place] at night helps. Does have occasion wheezing--new. No prior asthma issues. Nauseous more the past 2 weeks. Set to start PT through [facility]. Requested Carotid artery US follow up. Had progress on one side in 2020 check. 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 Contact dermatitis and other eczema, due to unspecified cause Grade I diastolic dysfunction Kidney stone Lichen 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 per [facility] outside facility Apr 1997 MORBID OBESITY 08/18/2007 Obstructive sleep apnea Sleep study 2003 Occlusion and stenosis of carotid artery without mention of cerebral infarction 03/09/2006 mild stenosis shown on u/s at [facility] u/s repeated 02/02/07 with no change Open fracture of tuft of distal phalanx of finger 05/06/2022 Pulmonary embolism (HCC) Pure hypercholesterolemia Type II or unspecified type diabetes mellitus with renal manifestations, uncontrolled(250.42) Unspecified glaucoma(365.9) Unspecified pruritic disorder Current Outpatient Medications Medication Sig blood sugar diagnostic (ACCU-CHEK POLY PLUS TEST STRP) test strip Check sugars 3 times daily metFORMIN ER (GLUCOPHAGE XR) 500 mg 24 hr tablet Take 4 tablets by mouth daily with breakfast. (Patient taking differently: Take 500 mg by mouth daily with breakfast.) ondansetron orally disintegrating (ZOFRAN ODT) 4 mg disintegrating tablet Take 1 tablet by mouth every 6 hours as needed for nausea/vomiting. tiZANidine (ZANAFLEX) 4 mg tablet Take 1 tablet by mouth twice daily as needed. calcitriol (ROCALTROL) 0.5 mcg capsule Take 1 capsule by mouth once daily. glimepiride (AMARYL) 4 mg tablet Take 2 tablets by mouth daily with breakfast. ferrous sulfate 325 mg (65 mg iron) tablet Take 1 tablet by mouth once daily. (Patient taking differently: Take 1 tablet by mouth once daily. Off and on) fluconazole (DIFLUCAN) 200 mg tablet TAKE 1 TABLET 3x per week clobetasol (TEMOVATE) 0.05 % cream 3x per day for 2 weeks and then twice daily thereafter chlorhexidine (HIBICLENS) 4 % external liquid Wash genitale area once a day for infectious vulvitis oxybutynin ER (DITROPAN XL) 10 mg 24 hr tablet Take 1 tablet by mouth once daily as needed. OVERACTIVE BLADDER apixaban (ELIQUIS) 5 mg tab(s) Take 1 tablet by mouth twice daily. gabapentin (NEURONTIN) 300 mg capsule one in morning, two at bedtime Blood Sugar Diagnostic, Drum (ACCU-CHEK COMPACT PLUS TEST) strip use to check sugars twice a day diphenhydramine HCl (BENADRYL ORAL) Take by mouth daily at bedtime. cholecalciferol, vitamin D3, (VITAMIN D3 ORAL) Take by mouth once daily. Blood-Glucose Meter, Drum-type (ACCU-CHEK COMPACT PLUS CARE) kit USE DIRECTED. acetaminophen (TYLENOL) 500 mg tablet Take 500 mg by mouth daily at bedtime. COMPOUNDED PRESCRIPTION ONE TOUCH ULTRA 2 TEST STRIPS TESTING 2 TIMES DAILY INSULIN NO DX E11.65 CALCIUM CITRATE/VITAMIN D3 (CALCIUM CITRATE + D ORAL) Take 1 capsule by mouth three times daily. BIOTIN 2,500 MCG TAB Take 2,500 mcg by mouth once daily. ascorbic acid(VITAMIN C 500 MG TAB) Take 500 mg by mouth once daily. pnv/iron,carb/om-3/fa/fat 1(PRE- MULTIVITAMINS WITH MINERALS 27 MG-1 MG-300 MG CAP) Take 1 capsule by mouth once daily. Current Facility-Administered Medications Medication Dose Route Frequency cyanocobalamin 1,000 mcg injection 1,000 mcg INTRAMUSCULAR q 1 MONTH ALLERGIES Allergen Reactions Asa [Salicylates] Anaphylaxis Cephalexin Rash, Diarrhea Severe rash all over as well as severe diarrhea Hydrocodone Itching Itching all over Adhesive Itching Aspirin Anaphylaxis Avapro [Irbesartan] Swelling Byetta [Exenatide] Can not remember what effect but not suppose to take it Crestor [Rosuvastat* Duoderm [Other] Rash Eggs [Egg] Diarrhea Not true allergy Erythromycin Myalgia Etodolac Contraindication-Medical Surgical Was told never to take NSAID due to bypass surgery. She also developed severe pain after taking Etodolac that was excruciating Lipitor [Atorvastat* Niacin Unknown Niaspan [Niacin (An* Nsaids (Non-Steroid* Other: See Comments Was told to avoid all NSAID's due to bypass surgery Ointments [Other] Can use lotions/creams, but ointments cause itchy/burning and painful rash. Penicillins Rash Pravachol [Pravasta* Sulfa (Sulfonamide * Rash Tape [Other] Zetia [Ezetimibe] Zocor [Simvastatin] Metformin GI Upset diarrhea Review of Systems Objective BP 126/72 Pulse 101 Resp 20 Wt 108.9 kg (240 lb) SpO2 99% BMI 38.74 kg/m Last 5 Encounter Wt Readings: Date: Wt: 08/15/2022 108.9 kg (240 lb) 07/07/2022 106.6 kg (235 lb) 06/11/2022 108.9 kg (240 lb) 06/10/2022 108.9 kg (240 lb) 05/12/2022 109.3 kg (241 lb) No waist measurement recorded Estimated body mass index is 38.74 kg/m as calculated from the following: Height as of 06/11/22: 167.6 cm (5' 6 ). Weight as of this encounter: 108.9 kg (240 lb). Last 5 Encounter BP Readings: Date: BP: 08/15/2022 126/72 07/07/2022 118/78 06/11/2022 164/75 06/11/2022 122/69 06/10/2022 122/70 Last 5 Encounter Pulse Readings: Date: Pulse: 08/15/2022 101 07/07/2022 61 06/11/2022 80 06/10/2022 62 05/29/2022 110 Physical Exam Constitutional: Appearance: Normal appearance. HENT: Head: Normocephalic. Eyes: Conjunctiva/sclera: Conjunctivae normal. Cardiovascular: Rate and Rhythm: Tachycardia present. Rhythm irregular. Heart sounds: Normal heart sounds. Pulmonary: Effort: Pulmonary effort is normal. Breath sounds: Normal breath sounds. Skin: General: Skin is warm and dry. Neurological: General: No focal deficit present. Mental Status: She is alert and oriented to person, place, and time. Comments: Generalized weakness noted; in wheelchair Psychiatric: Mood and Affect: Mood normal. Behavior: Behavior normal. Thought Content: Thought content normal. Judgment: Judgment normal. Hemoglobin A1C (%) Date Value 04/27/2022 7.3 01/16/2022 7.3 08/21/2021 6.9 10/07/2020 7.7 06/28/2020 7.6 02/16/2020 7.6 10/12/2019 7.8 03/17/2019 7.5 Hemoglobin A1C (POCT) (%) Date Value 01/10/2021 7.0 ECG did not show a fib but SINUS RHYTHM WITH PREMATURE ATRIAL COMPLEXES Assessment and Plan Encounter Diagnosis ICD-10-CM 1. Irregular heart rhythm I49.9 ECG COMPLETE CONSULT TO CARDIOLOGY COMP METABOLIC PANEL CBC TSH BLD MAGNESIUM BLD HGB A1C T4 FREE/FREE THYROX T3 FREE BLD ketoconazole (NIZORAL) 2 % cream Frequent PACs 2. FIELD (dyspnea on exertion) R06.09 ECG COMPLETE CONSULT TO CARDIOLOGY 3. Bilateral carotid artery stenosis I65.23 US CAROTID ARTERIES POLO VAS LAB 4. Premature atrial complexes I49.1 CONSULT TO CARDIOLOGY 5. Dietary iron deficiency without anemia E61.1 CBC 6. Vitamin D deficiency E55.9 VITAMIN D 25 HYDROXY 7. Elevated ferritin R79.89 FERRITIN BLD 8. B12 deficiency E53.8 VITAMIN B12 BLOOD METHYLMALONIC ACID 9. Other fatigue R53.83 IRON + TIBC FERRITIN BLD FOLATE SERUM VITAMIN B12 BLOOD Above issues addressed with patient. Patient involved in shared decision making for management of medical issues. History and medications reviewed. Epic updated as needed Refills and/or prescriptions taken care of and meds adjusted as indicated after reviewed history, exam and labs. Health Maintenance reviewed. Updated record and/or ordered tests as recorded. Encouraged on efforts at healthy diet and regular exercise and adequate sleep. Further evaluation and treatment as indicated. I spent a total of at least 40 minutes on the date of the service which included sdka-mm-ioli patient care, completing clinical documentation, obtaining and/or reviewing separately obtained history, performing a medically appropriate examination, counseling and educating the patient/family/caregiver, ordering medications, tests, or procedures, communicating with other HCPs (not separately reported), and independently interpreting results (not separately reported). Guillaume Dominguez MD documented in this encounter [facility] 08-12-2022 Miscellaneous Notes Spoke to pt and scheduled There is already a PT order in from Dr. Montelongo, please call patient to schedule Arelis Monahan APRN.CNP Patient calls and state that she was given physical therapy referral to [facility] by pain management. Patient states that she went to [facility] and did not like physical therapy. Patient states that she would like to go to [facility] for Physical Therapy. Patient asking if provider can write a referral to physical therapy so that she can go to [facility]? Patient also reports that she has been having headaches frequently. Headaches come and go. Patient reports that she has been taking tylenol which has helped some. Patient rates pain anywhere from 4-8. Patient is asking if her carotid arteries can be checked. Patient states that her blood sure has been fine. Patient did set up appointment with provider on 08/15/2022 to discuss. Please review and advise, Tabitha Madrid RN documented in this encounter [facility] 08-12-2022 Miscellaneous Notes Opened in Error documented in this encounter [facility] 08-07-2022 Miscellaneous Notes Pharmacy request refi Last OV 06/10/22 Next 10/23/22 Requested Prescriptions Pending Prescriptions Disp Refills blood sugar diagnostic (ACCU-CHEK POLY PLUS TEST STRP) test strip 100 Each 11 Sig: Check sugars 3 times daily Please review and advise. Katy Fowler RN documented in this encounter [facility] 08-04-2022 Note [facility] 08-04-2022 Miscellaneous Notes PT location contacted at this time Fax number to send order: [phone] PT order sent via fax at this time per patient's request Addended by: ORALIA GARCIA on: 08/04/2022 03:02 PM Modules accepted: Orders PT order signed off Addended by: WESLEY MORAN RN on: 08/04/2022 11:39 AM Modules accepted: Orders Patient contacted at this time All questions and concerns answered appropriate Patient states she had improvement with injection but finds that her legs feel very weak Discussed muscle atrophy to low back and how patient should participate in formal physical therapy Patient agrees to participate in physical therapy Requesting order to be sent to [facility] in [place] Instructed patient to wait until tomorrow to call for an appointment as this RN will obtain order and fax it to [facility] per patient's request PT order pended to provider at this time This RN attempted to contact Patient's spouse answered the phone and stated patient was unavailable Instructed patient's spouse to have patient call office when she is available Patient spouse verbalizes understanding and will update spouse Patient left voicemail 07/31/2022 at 0821 Patient requesting call back from the office. Patient has some questions in regard to her recent injection Patient received L5-S1 Lumbar Epidural Injection with Dr. Montelongo on 07/23/2022 Office to contact patient to discuss documented in this encounter [facility] 08-04-2022 History of Present illness Narrative Patient presents for B-12 injection. Denies any problems at this time. Patient instructed on any SE of medication, verbalized understanding and agreed to proceed with treatment. Tolerated injection well. Ning Mckeon LPN documented in this encounter [facility] 08-03-2022 Miscellaneous Notes Printed and mailed to patient's home address. Can we please print and resend this one too? Thanks! Pt called in and lost the letter/prescription for the handicap sticker that was given to her on 03-21-22. Requesting a new one be mailed to her. Marquita Mclaughlin LPN documented in this encounter [facility] 07-09-2022 Note [facility] 07-07-2022 Note [facility] 07-07-2022 History of Present illness Narrative Patient presents for B-12 injection. Denies any problems at this time. Patient instructed on any SE of medication, verbalized understanding and agreed to proceed with treatment. Tolerated injection well. Ning Mckeon LPN documented in this encounter [facility] 07-07-2022 Note [facility] 07-07-2022 History of Present illness Narrative This note was created using [employer]. Subjective Miriam Davenport is a 82 year old female. Patient presents with: Established Patient: Discuss back pain concerns SUBJECTIVE: Miriam Davenport is a 82 year old year old lady here today for follow up appointment for review of medical conditions: back pain. Patient worried about doing MRI since has claustrophobia. Needs med for MRI pretreatment, Pain is severe and needs to get test done and follow up with pain management provider. 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 Contact dermatitis and other eczema, due to unspecified cause Grade I diastolic dysfunction Kidney stone Lichen 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 per [facility] outside facility Apr 1997 MORBID OBESITY 08/18/2007 Obstructive sleep apnea Sleep study 2003 Occlusion and stenosis of carotid artery without mention of cerebral infarction 03/09/2006 mild stenosis shown on u/s at [facility] u/s repeated 02/02/07 with no change Open fracture of tuft of distal phalanx of finger 05/06/2022 Pulmonary embolism (HCC) Pure hypercholesterolemia Type II or unspecified type diabetes mellitus with renal manifestations, uncontrolled(250.42) Unspecified glaucoma(365.9) Unspecified pruritic disorder Current Outpatient Medications Medication Sig metFORMIN ER (GLUCOPHAGE XR) 500 mg 24 hr tablet Take 4 tablets by mouth daily with breakfast. (Patient taking differently: Take 500 mg by mouth daily with breakfast.) tiZANidine (ZANAFLEX) 4 mg tablet Take 1 tablet by mouth twice daily as needed. calcitriol (ROCALTROL) 0.5 mcg capsule Take 1 capsule by mouth once daily. glimepiride (AMARYL) 4 mg tablet Take 2 tablets by mouth daily with breakfast. ferrous sulfate 325 mg (65 mg iron) tablet Take 1 tablet by mouth once daily. (Patient taking differently: Take 1 tablet by mouth once daily. Off and on) fluconazole (DIFLUCAN) 200 mg tablet TAKE 1 TABLET 3x per week clobetasol (TEMOVATE) 0.05 % cream 3x per day for 2 weeks and then twice daily thereafter chlorhexidine (HIBICLENS) 4 % external liquid Wash genitale area once a day for infectious vulvitis oxybutynin ER (DITROPAN XL) 10 mg 24 hr tablet Take 1 tablet by mouth once daily as needed. OVERACTIVE BLADDER apixaban (ELIQUIS) 5 mg tab(s) Take 1 tablet by mouth twice daily. gabapentin (NEURONTIN) 300 mg capsule one in morning, two at bedtime Blood Sugar Diagnostic, Drum (ACCU-CHEK COMPACT PLUS TEST) strip use to check sugars twice a day blood sugar diagnostic (ACCU-CHEK POLY PLUS TEST STRP) test strip Check sugars 3 times daily diphenhydramine HCl (BENADRYL ORAL) Take by mouth daily at bedtime. cholecalciferol, vitamin D3, (VITAMIN D3 ORAL) Take by mouth once daily. Blood-Glucose Meter, Drum-type (ACCU-CHEK COMPACT PLUS CARE) kit USE DIRECTED. acetaminophen (TYLENOL) 500 mg tablet Take 500 mg by mouth daily at bedtime. COMPOUNDED PRESCRIPTION ONE TOUCH ULTRA 2 TEST STRIPS TESTING 2 TIMES DAILY INSULIN NO DX E11.65 CALCIUM CITRATE/VITAMIN D3 (CALCIUM CITRATE + D ORAL) Take 1 capsule by mouth three times daily. BIOTIN 2,500 MCG TAB Take 2,500 mcg by mouth once daily. ascorbic acid(VITAMIN C 500 MG TAB) Take 500 mg by mouth once daily. pnv/iron,carb/om-3/fa/fat 1(PRE- MULTIVITAMINS WITH MINERALS 27 MG-1 MG-300 MG CAP) Take 1 capsule by mouth once daily. ondansetron orally disintegrating (ZOFRAN ODT) 4 mg disintegrating tablet Take 1 tablet by mouth every 6 hours as needed for nausea/vomiting. (Patient not taking: Reported on 07/07/2022) metoprolol succinate ER (TOPROL XL) 25 mg 24 hr tablet Take 0.5 tablets by mouth once daily. (Patient not taking: Reported on 07/07/2022) glimepiride (AMARYL) 1 mg tablet Take 2 tablets by mouth daily with breakfast. (Patient not taking: Reported on 07/07/2022) Current Facility-Administered Medications Medication Dose Route Frequency cyanocobalamin 1,000 mcg injection 1,000 mcg INTRAMUSCULAR q 1 MONTH Review of Systems Objective BP 118/78 Pulse 61 Temp (!) 35.8 C (96.4 F) Resp 18 Wt 106.6 kg (235 lb) SpO2 95% BMI 37.93 kg/m Physical Exam Neurological: Mental Status: She is alert. Psychiatric: Attention and Perception: Attention normal. Mood and Affect: Affect normal. Mood is anxious. Speech: Speech normal. Behavior: Behavior normal. Thought Content: Thought content normal. Cognition and Memory: Cognition normal. Judgment: Judgment normal. Assessment and Plan Encounter Diagnosis ICD-10-CM 1. Spondylolisthesis of lumbar region M43.16 ALPRAZolam (XANAX) 1 mg tablet 2. Open compression fracture of L1 lumbar vertebra with routine healing, subsequent encounter S32.010D ALPRAZolam (XANAX) 1 mg tablet 3. Anxiety disorder, unspecified type F41.9 ALPRAZolam (XANAX) 1 mg tablet Above issues addressed with patient. Patient involved in shared decision making for management of medical issues. History and medications reviewed. Epic updated as needed Refills and/or prescriptions taken care of and meds adjusted as indicated after reviewed history, exam and labs. Health Maintenance reviewed. Updated record and/or ordered tests as recorded. Encouraged on efforts at healthy diet and regular exercise and adequate sleep. Needs med for anxiety with getting MRI done. Been on alprazolam before. Discussed use. Guillaume Dominguez MD documented in this encounter [facility] 07-02-2022 Miscellaneous Notes Wednesday07/04/22 is not available. Spoke with patient and offered her 07/07/22 at 10:20 and she agreed to appointment. Appointment scheduled. There is a Wednesday at 11AM appointment slot--see if wants to come in to discuss Pt called and she is asking for Dr. Dominguez recommendations on the following: Has seen pain management and has had 3 procedures which did not last more than 2 weeks. They are wanting to do 4th procedure going into the spine and she is concerned. Asking your recommendation. Maybe needs 2nd opinion asking about Dr. Fidel Siddiqui. Wants to discuss pain control and getting hard to walk. Doesn't know where to go from here. Please advise pt. Soon apt not available to offer with you. Marquita Mclaughlin LPN documented in this encounter [facility] 06-23-2022 Miscellaneous Notes Patient contacted office again Patient states she was able to have her MRI scheduled but first available was on 07/09/2022 Patient would like to postpone injection and have MRI first Patient rescheduled to 07/23/2022 Closing encounter Patient left voicemail 06/22/2022 at 0936 Patient contacted at this time Patient was asking what injection she was having in July Discussed epidural approach for symptoms that are still present after sacroiliac joint RFAs. Patient verbalizes understanding. Will send information about injection and procedure instructions via mail as her mychart is not currently working No additional questions or concerns at this time Closing encounter documented in this encounter [facility] 06-18-2022 Miscellaneous Notes Called and spoke with patient to get more information. She says her daughter has concerns about side effects but the patient can't be more specific than that. Patient is not able to tell me any side effects that she is personally having. She is going to talk to her daughter to find out her specific concerns then call the office back. Geno Franco RN Patient calling in stating that her daughter is concerned about her RX Gabapentin . Patient is inquiring about reducing the dosage due to possible side effects. Please advise. Contact Information [phone] Thank you Veda Cardoza documented in this encounter [facility] 06-18-2022 Miscellaneous Notes Called patient and informed her that order was in and she can get the urine done at earliest convenience. Patient calls office stating she believes she has a UTI. Order is pended for a urine culture. Please file if deemed necessary. Patient calls and states that she has been having burning and pain with urination. Patient also has been having frequency. Patient asking if an order can be placed so that she can come and get urine tested for UTI? Please review and advise, Tabitha Madrid RN documented in this encounter [facility] 06-11-2022 Note HNO ID: [id number] Author: Dilma Patel Jr., MD Service: ? Author Type: Physician Type: Procedures Filed: 06/11/2022 11:52 AM Note Text: CYSTOSCOPY PROCEDURE NOTE: Miriam Davenport is a 82 year old female who presents with left side ureteral stent for a cystoscopy, left side ureteral stent removal Pt ID verified with patient: Yes Fire risk assessment done Procedure verified with patient: Yes Procedure confirmed with physician and clinical support manager: Yes UNIVERSAL PROTOCOL / SAFETY CHECKLIST Procedure to be Performed: cysto, L stent removal Sign In: A Moment of CARE was completed. Personnel directly involved with the procedure wore the appropriate PPE (Personal Protective Equipment). Patient/Surrogate Stated/Verified: PATIENT VERIFIED(optional for EMERGENT procedures): Patient name, Date of , Relevant allergies, and The intended procedure Time Out Communication: Intended patient and procedure match the source documents. Consent documented and matches the intended procedure. Sign Out: SIGN OUT (optional for EMERGENT procedures): No specimen collected. Dilma Patel Jr, MD Pre procedure dx: left renal calculus Post procedure dx: same A urinalysis was performed revealing no evidence of infection. The benefits, risks, alternatives of the cystoscopy procedure and personnel were discussed with the patient. The verbal consent was obtained and the patient agrees to proceed. Female staff present for entire exam/procedure. Procedure: The patient was placed on the procedure table in the supine position and prepped and draped in the usual sterile fashion. 2% Lidocaine Jelly was placed per urethra as an anesthetic in the standard fashion. Once adequate local anesthesia was achieved, the tip of the flexible cystoscope was carefully placed into the urethra under direct visual guidance. The scope was negotiated per urethra with no evidence of stricture into the bladder. Careful valenzuela endoscopy was carried out. The posterior, superior and lateral florian and dome of the bladder were all well visualized and the scope was retroflexed upon itself. The findings were consistent with no evidence of bladder mucosal pathology. The left side ureteral stent was grabbed with graspers, the stent and the scope were removed from the patient. Female nurse present The patient tolerated the procedure without complications. Patient was given standard post-procedure instructions, and was directed to complete the course of oral antibiotics and increase oral fluid intake as directed. ASSESSMENT/PLAN: 3 months Kub prior Stone prevention Dilma Patel Jr, MD [facility] 06-11-2022 Instructions Dilma Patel Jr., MD - 06/11/2022 11:52 AM EST Counseled patient on increasing fluids, avoiding salt, avoiding caffeine, avoiding large portions of animal fat/meats at one time and increasing citrates in diet. documented in this encounter [facility] 06-11-2022 Procedure note CYSTOSCOPY PROCEDURE NOTE: Miriam Davenport is a 82 year old female who presents with left side ureteral stent for a cystoscopy, left side ureteral stent removal Pt ID verified with patient: Yes Fire risk assessment done Procedure verified with patient: Yes Procedure confirmed with physician and clinical support manager: Yes UNIVERSAL PROTOCOL / SAFETY CHECKLIST Procedure to be Performed: cysto, L stent removal Sign In: A Moment of CARE was completed. Personnel directly involved with the procedure wore the appropriate PPE (Personal Protective Equipment). Patient/Surrogate Stated/Verified: PATIENT VERIFIED(optional for EMERGENT procedures): Patient name, Date of , Relevant allergies, and The intended procedure Time Out Communication: Intended patient and procedure match the source documents. Consent documented and matches the intended procedure. Sign Out: SIGN OUT (optional for EMERGENT procedures): No specimen collected. Dilma Patel Jr, MD Pre procedure dx: left renal calculus Post procedure dx: same A urinalysis was performed revealing no evidence of infection. The benefits, risks, alternatives of the cystoscopy procedure and personnel were discussed with the patient. The verbal consent was obtained and the patient agrees to proceed. Female staff present for entire exam/procedure. Procedure: The patient was placed on the procedure table in the supine position and prepped and draped in the usual sterile fashion. 2% Lidocaine Jelly was placed per urethra as an anesthetic in the standard fashion. Once adequate local anesthesia was achieved, the tip of the flexible cystoscope was carefully placed into the urethra under direct visual guidance. The scope was negotiated per urethra with no evidence of stricture into the bladder. Careful valenzuela endoscopy was carried out. The posterior, superior and lateral florian and dome of the bladder were all well visualized and the scope was retroflexed upon itself. The findings were consistent with no evidence of bladder mucosal pathology. The left side ureteral stent was grabbed with graspers, the stent and the scope were removed from the patient. Female nurse present The patient tolerated the procedure without complications. Patient was given standard post-procedure instructions, and was directed to complete the course of oral antibiotics and increase oral fluid intake as directed. ASSESSMENT/PLAN: 3 months Kub prior Stone prevention Dilma Patel Jr, MD documented in this encounter [facility] 06-10-2022 Note [facility] 06-03-2022 Miscellaneous Notes Received voicemail 06-03-22 at 3:24 PM. Hi this is Shelley Davenport calling, [phone]. My birthday is [birth year]. I'm calling about my back. It's very very painful and I really need to have help with it. Thank you very much. Miguel A. Forwarded to Dr. Montelongo's clinical staff. JESSICA Nunes, RN June 03, 2022 4:27 PM documented in this encounter [facility] 05-29-2022 Note HNO ID: [id number] Author: Mechelle Hendricks APRN.COMPLIANCE TECHNICIAN Service: Anesthesiology Author Type: Nurse Marketing Proposal Specialist Type: Anesthesia Procedure Notes Filed: 05/29/2022 9:28 AM Note Text: ANESTHESIOLOGY PROCEDURE NOTE Airway General Information Procedure Start Time/Medication Administration: 05/29/2022 9:18 AM Patient location during procedure: OR Patient identity confirmed: arm band Staffing Anesthesiologist: Maribell Bundy MD COMPLIANCE TECHNICIAN: Mechelle Hendricks APRN.COMPLIANCE TECHNICIAN Performed by: KRISTEN Indications and Patient Condition Indications for airway management: anesthesia Preoxygenated: yes anesthesia circuit Patient position: sniffing Method: asleep Cricoid Pressure: No Manual In-Line Stabilization: No Difficult Mask: No Final Airway Details Final airway type: supraglottic airway Number of attempts at approach: 1 Final Supraglottic Airway: i-gel Size 4 Seal Adequate: yes Failed airway: no Airway not difficult SIGNATURE: Mechelle Hendricks APRN.CRNA PATIENT NAME: Miriam Davenport DATE: May 29, 2022 TIME: 9:28 AM CSN: [id number] [facility] 05-29-2022 Miscellaneous Notes Pt added to schedule for stent removal. Will call when home from hospital to confirm. Natalya MCINTYRE [facility] or 05/29/22 Cysto stent removal in office 1-2 weeks documented in this encounter [facility] 05-28-2022 Miscellaneous Notes OK, wonderful. Patient aware. Closing. Show up to surgery Patient calling and she was wanted to see what Urine Culture result from 05-26-2022 showed. Aware of this result: Culture No growth (<1,000 CFU/ml) Resulting Agency: [facility] I advised that Surgery still on for tomorrow and she just was checking to make sure. If she needs to do anything else please advise. documented in this encounter [facility] 05-12-2022 History of Present illness Narrative This note was created using [employer]. Subjective Miriam Davenport is a 82 year old female. Patient presents with: ER F/U SUBJECTIVE: Miriam Davenport is a 82 year old year old lady here today for [facility] follow up appointment for review of medical conditions for middle ring finger fracture. 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 Finger nail was having bleeding from underneath the nail. Noted that staghorn calculus surgery postponed due to urinary tract infection. Moved to 05/29 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 Contact dermatitis and other eczema, due to unspecified cause Grade I diastolic dysfunction Kidney stone Lichen 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 per [facility] outside facility Apr 1997 MORBID OBESITY 08/18/2007 Obstructive sleep apnea Sleep study 2003 Occlusion and stenosis of carotid artery without mention of cerebral infarction 03/09/2006 mild stenosis shown on u/s at [facility] u/s repeated 02/02/07 with no change Open fracture of tuft of distal phalanx of finger 05/06/2022 Pulmonary embolism (HCC) Pure hypercholesterolemia Type II or unspecified type diabetes mellitus with renal manifestations, uncontrolled(250.42) Unspecified glaucoma(365.9) Unspecified pruritic disorder Current Outpatient Medications Medication Sig cefdinir (OMNICEF) 300 mg capsule Take 1 capsule by mouth twice daily for 10 days. cephALEXin (KEFLEX) 500 mg capsule Take 1 capsule by mouth three times daily for 10 days. (Patient not taking: Reported on 05/12/2022) ondansetron orally disintegrating (ZOFRAN ODT) 4 mg disintegrating tablet Take 1 tablet by mouth every 6 hours as needed for nausea/vomiting. tiZANidine (ZANAFLEX) 4 mg tablet Take 1 tablet by mouth twice daily as needed. calcitriol (ROCALTROL) 0.5 mcg capsule Take 1 capsule by mouth once daily. glimepiride (AMARYL) 4 mg tablet Take 2 tablets by mouth daily with breakfast. ferrous sulfate 325 mg (65 mg iron) tablet Take 1 tablet by mouth once daily. metoprolol succinate ER (TOPROL XL) 25 mg 24 hr tablet Take 0.5 tablets by mouth once daily. fluconazole (DIFLUCAN) 200 mg tablet TAKE 1 TABLET 3x per week clobetasol (TEMOVATE) 0.05 % cream 3x per day for 2 weeks and then twice daily thereafter chlorhexidine (HIBICLENS) 4 % external liquid Wash genitale area once a day for infectious vulvitis oxybutynin ER (DITROPAN XL) 10 mg 24 hr tablet Take 1 tablet by mouth once daily as needed. OVERACTIVE BLADDER apixaban (ELIQUIS) 5 mg tab(s) Take 1 tablet by mouth twice daily. glimepiride (AMARYL) 1 mg tablet Take 2 tablets by mouth daily with breakfast. (Patient not taking: Reported on 05/08/2022) gabapentin (NEURONTIN) 300 mg capsule one in morning, two at bedtime Blood Sugar Diagnostic, Drum (ACCU-CHEK COMPACT PLUS TEST) strip use to check sugars twice a day metFORMIN ER (GLUCOPHAGE XR) 500 mg 24 hr tablet Take 4 tablets by mouth daily with breakfast. blood sugar diagnostic (ACCU-CHEK POLY PLUS TEST STRP) test strip Check sugars 3 times daily diphenhydramine HCl (BENADRYL ORAL) Take by mouth daily at bedtime. cholecalciferol, vitamin D3, (VITAMIN D3 ORAL) Take by mouth once daily. Blood-Glucose Meter, Drum-type (ACCU-CHEK COMPACT PLUS CARE) kit USE DIRECTED. acetaminophen (TYLENOL) 500 mg tablet Take 500 mg by mouth daily at bedtime. COMPOUNDED PRESCRIPTION ONE TOUCH ULTRA 2 TEST STRIPS TESTING 2 TIMES DAILY INSULIN NO DX E11.65 CALCIUM CITRATE/VITAMIN D3 (CALCIUM CITRATE + D ORAL) Take 1 capsule by mouth three times daily. BIOTIN 2,500 MCG TAB Take 2,500 mcg by mouth once daily. ascorbic acid(VITAMIN C 500 MG TAB) Take 500 mg by mouth once daily. pnv/iron,carb/om-3/fa/fat 1(PRE-JIMY MULTIVITAMINS WITH MINERALS 27 MG-1 MG-300 MG CAP) Take 1 capsule by mouth once daily. Current Facility-Administered Medications Medication Dose Route Frequency cyanocobalamin 1,000 mcg injection 1,000 mcg INTRAMUSCULAR q 1 MONTH perflutren lipid microspheres 1.3 mL in NaCl (PF) 0.9% 10 mL injection (DEFINITY) INTRAVENOUS DIRECTED PRN sodium chloride 0.9 % (flush) 10 mL (BD POSIFLUSH) 10 mL INTRAVENOUS DIRECTED PRN Review of Systems Objective BP 118/72 Pulse 78 Wt 109.3 kg (241 lb) SpO2 100% BMI 40.10 kg/m Physical Exam Noted nail white shade now no bleeding Discoloration from the bruising noted at tip with purple; rest of finger with yellowish hue. Really tender still No redness Assessment and Plan Encounter Diagnosis ICD-10-CM 1. Crushing injury of right middle finger, sequela S67.192S 2. Renal calculus, left N20.0 staghorn; to have surgery Above issues addressed with patient. Patient involved in shared decision making for management of medical issues. History and medications reviewed. Epic updated as needed Refills and/or prescriptions taken care of and meds adjusted as indicated after reviewed history, exam and labs. Health Maintenance reviewed. Updated record and/or ordered tests as recorded. Finger is healing. No need for further evaluation or treat noted. Continue present management. Noted issues with kidney stone. Continue present management. Further evaluation and treatment as indicated. Guillaume Dominguez MD documented in this encounter [facility] 05-11-2022 Note HNO ID: [id number] Author: Manda Conway APRN.TOOL DISTRIBUTOR Service: General Surgery Author Type: Nurse Practitioner Type: Progress Notes Filed: 05/11/2022 7:18 AM Note Text: Summary: PAT HANDP done 04/27/2022 per Guillaume Dominguez MD [facility] 05-07-2022 Miscellaneous Notes Patient made aware of message. Aware of plan of care. No other questions. Encounter closed. Does not need to stop at all Patient calling to see if she needs to hold Eliquis prior to surgery. She states she keeps missing a phone call. Gave her the number. She states she usually just hold for 48 hours on the Eliquis, is this OK or do you want 3 days? documented in this encounter [facility] 05-06-2022 Miscellaneous Notes Seen in today. Pamela Barrow RN Reviewed triage protocol guidelines with patient. Disposition: See PCP within 4 hours. Advised Urgent Care evaluation. Advised patient may need tetanus booster. She declines office appointment. States she may come in to Urgent Care. Depends on if she can get transportation. Pamela Barrow RN Reason for Disposition [1] MODERATE-SEVERE pain AND [2] blood present under a nail Answer Assessment - Initial Assessment Questions 1. MECHANISM: smashed finger in door jam 2. ONSET: 4 hours ago 3. LOCATION: top of middle finger on right hand 4. APPEARANCE of the INJURY: finger is bruised, slightly swollen with bleeding under nail bed. Blood was oozing from nail bed x 3 hours. Patient is on Eliquis 5. SEVERITY: Patient says she can use her hand normally 6. SIZE: the entire top joint of middle finger is bruised 7. PAIN: Patient states moderate pain - MODERATE (4-7): interferes with normal activities or awakens from sleep. 8. TETANUS: For any breaks in the skin, ask: When was the last tetanus booster? 10/10/2016 9. OTHER SYMPTOMS: Do you have any other symptoms? NO Protocols used: Finger [id number] documented in this encounter [facility] 05-06-2022 Instructions Janae Sandoval APRN.TOOL DISTRIBUTOR - 05/06/2022 4:12 PM EST ASSESSMENT/PLAN: 1. Crushing injury of right middle finger, initial encounter - ICD9: 927.3, ICD10: S67.192A (primary diagnosis) - XR DIGIT GENERAL 3V FRONTAL/LAT/OBL RIGHT Radiologist IMPRESSION: Acute, comminuted fracture of the third distal phalanx subungual tuft. Supervisor Speech: KOLE Transcribe Date/Time: May 06 2022 4:13P Dictated by : ORIN BEAL MD - ACETAMINOPHEN 500 MG TABLET - apply ice to finger tip. - keep elevated. - tylenol for pain. - distal finger splint applied. - change your bandage daily. Keep clean with soap and water. 2. Open fracture of tuft of distal phalanx of finger - ICD9: 816.12, ICD10: S62.639B - CEPHALEXIN 500 MG CAPSULE - CONSULT PANEL TO ORTHOPAEDICS 3. Nausea - ICD9: 787.02, ICD10: R11.0 - ONDANSETRON 4 MG DISINTEGRATING TABLET - Follow-up with your PCP in 3-5 days if symptoms have not improved or sooner if symptoms worsen - Discussed red flags and need for immediate medical evaluation if any occur. - Discussed supportive care treatment with fluids, rest and analgesia. - Discussed expected course of illness Janae Sandoval APRN.TOOL DISTRIBUTOR FRACTURES GENERAL INFORMATION: A fracture is a break in a bone. The length of time the cast will be on depends on how much time is needed for the bone to heal. Sometimes a temporary splint is placed to allow the swelling to come down. If this is the case, you must follow up to have the actual cast applied. INSTRUCTIONS: 1. To minimize swelling, keep the injured limb above the level of your heart as much as possible. 2. Apply ice to the injury for 15 minutes each hour for the first two days. Put the ice in a plastic bag and place a thin towel between the bag of ice and your cast. 3. Keep your splint dry. It can be protected during bathing with a plastic bag. If a fiberglass cast gets a little wet, it can be dried with a inspector hairspring. 4. Do not put pressure on any part of your cast or splint as it may break. You may take acetaminophen, or other prescribed pain medication as needed. If you are a woman who is post-menopausal or a man greater than 50 years old, contact your Primary Care Physician about having a bone density test. CONTACT YOUR DOCTOR OR RETURN TO THE ED IF: 1. Your cast gets damaged or breaks. 2. You have continued severe pain or more swelling than you did before the cast was placed. 3. Your skin or nails turn blue, foster, or feel cold or numb. 4. There is a bad smell or discharge coming from under the cast. documented in this encounter [facility] 05-06-2022 History of Present illness Narrative Images from the original note were not included. Subjective Trauma Associated symptoms include nausea. Pertinent negatives include no chills, fever, rash or vomiting. Miriam Davenport is a 82 year old female who presents with right middle finger injury. She closed a door on her finger. This happened today. She has had some bleeding from around the nailbed. She is having some nausea from the pain. Review of Systems Constitutional: Negative for chills and fever. Gastrointestinal: Positive for nausea. Negative for vomiting. Musculoskeletal: Positive for joint pain. Negative for falls. Skin: Negative for itching and rash. 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 Contact dermatitis and other eczema, due to unspecified cause Lichen 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 per [facility] outside facility Apr 1997 MORBID OBESITY 08/18/2007 Obstructive sleep apnea Sleep study 2003 Occlusion and stenosis of carotid artery without mention of cerebral infarction 03/09/06 mild stenosis shown on u/s at [facility] u/s repeated 02/02/07 with no change Pure hypercholesterolemia Type II or unspecified type diabetes mellitus with renal manifestations, uncontrolled(250.42) Unspecified glaucoma(365.9) Unspecified pruritic disorder PAST SURGICAL HISTORY Procedure Laterality Date EGD TRANSORAL BIOPSY SINGLE/MULTIPLE 05-14-15 GASTRIC BYPASS 09/14/2007 INCISION & DRAINAGE ABSCESS SIMPLE/SINGLE 2009 ABD WALL and intestine removed LAPS COLECTOMY PRTL W/RMVL TERMINAL ILEUM 02/20/09 polyps LIG/TRNSXJ FLP TUBE ABDL/VAG APPR UNI/BI Tubal ligation NSL/SINUS NDSC SPHENDT RMVL TISS SPHENOID SINUS PAST SURGICAL HISTORY OF 02/2008 Left total knee PAST SURGICAL HISTORY OF 04/2008 Right total knee ALLERGIES Asa [Salicylates], Avapro [Irbesartan], Byetta [Exenatide], Crestor [Rosuvastatin Calcium], Duoderm [Other], Eggs [Egg], Erythromycin, Etodolac, Lipitor [Atorvastatin], Niacin, Niaspan [Niacin (Antihyperlipidemic)], Nsaids (Non-Steroidal Anti-Inflammatory Drug), Ointments [Other], Penicillins, Pravachol [Pravastatin Sodium], Sulfa (Sulfonamide Antibiotics), Tape [Other], Zetia [Ezetimibe], Zocor [Simvastatin], and Metformin MEDICATIONS tiZANidine (ZANAFLEX) 4 mg tablet^Take 1 tablet by mouth twice daily as needed.^Disp: 60 tablet^Rfl: 0 calcitriol (ROCALTROL) 0.5 mcg capsule^Take 1 capsule by mouth once daily.^Disp: 90 capsule^Rfl: 4 glimepiride (AMARYL) 4 mg tablet^Take 2 tablets by mouth daily with breakfast.^Disp: 180 tablet^Rfl: 3 ferrous sulfate 325 mg (65 mg iron) tablet^Take 1 tablet by mouth once daily.^Disp: 30 tablet^Rfl: 0 metoprolol succinate ER (TOPROL XL) 25 mg 24 hr tablet^Take 0.5 tablets by mouth once daily.^Disp: 90 tablet^Rfl: 3 fluconazole (DIFLUCAN) 200 mg tablet^TAKE 1 TABLET 3x per week^Disp: 32 tablet^Rfl: 3 clobetasol (TEMOVATE) 0.05 % cream^3x per day for 2 weeks and then twice daily thereafter^Disp: 60 g^Rfl: 4 chlorhexidine (HIBICLENS) 4 % external liquid^Wash genitale area once a day for infectious vulvitis^Disp: 473 mL^Rfl: 11 oxybutynin ER (DITROPAN XL) 10 mg 24 hr tablet^Take 1 tablet by mouth once daily as needed. OVERACTIVE BLADDER^Disp: 90 tablet^Rfl: 1 apixaban (ELIQUIS) 5 mg tab(s)^Take 1 tablet by mouth twice daily.^Disp: 60 tablet^Rfl: 11 glimepiride (AMARYL) 1 mg tablet^Take 2 tablets by mouth daily with breakfast.^Disp: 60 tablet^Rfl: 11 gabapentin (NEURONTIN) 300 mg capsule^one in morning, two at bedtime^Disp: 90 capsule^Rfl: 11 Blood Sugar Diagnostic, Drum (ACCU-CHEK COMPACT PLUS TEST) strip^use to check sugars twice a day^Disp: 51 Strip^Rfl: 11 metFORMIN ER (GLUCOPHAGE XR) 500 mg 24 hr tablet^Take 4 tablets by mouth daily with breakfast.^Disp: 360 tablet^Rfl: 3 blood sugar diagnostic (ACCU-CHEK POLY PLUS TEST STRP) test strip^Check sugars 3 times daily^Disp: 100 Each^Rfl: 11 diphenhydramine HCl (BENADRYL ORAL)^Take by mouth daily at bedtime.^Disp: ^Rfl: cholecalciferol, vitamin D3, (VITAMIN D3 ORAL)^Take by mouth once daily.^Disp: ^Rfl: Blood-Glucose Meter, Drum-type (ACCU-CHEK COMPACT PLUS CARE) kit^USE DIRECTED.^Disp: 1 Kit^Rfl: 0 acetaminophen (TYLENOL) 500 mg tablet^Take 500 mg by mouth daily at bedtime.^Disp: ^Rfl: COMPOUNDED PRESCRIPTION^ONE TOUCH ULTRA 2 TEST STRIPS TESTING 2 TIMES DAILY INSULIN NO DX E11.65^Disp: 100 Strip^Rfl: 12 CALCIUM CITRATE/VITAMIN D3 (CALCIUM CITRATE + D ORAL)^Take 1 capsule by mouth three times daily. ^Disp: ^Rfl: BIOTIN 2,500 MCG TAB^Take 2,500 mcg by mouth once daily. ^Disp: ^Rfl: 0 ascorbic acid(VITAMIN C 500 MG TAB)^Take 500 mg by mouth once daily. ^Disp: 0^Rfl: 0 pnv/iron,carb/om-3/fa/fat 1(PRE-JIMY MULTIVITAMINS WITH MINERALS 27 MG-1 MG-300 MG CAP)^Take 1 capsule by mouth once daily. ^Disp: 0^Rfl: 0 cephALEXin (KEFLEX) 500 mg capsule^Take 1 capsule by mouth three times daily for 10 days.^Disp: 30 capsule^Rfl: 0 ondansetron orally disintegrating (ZOFRAN ODT) 4 mg disintegrating tablet^Take 1 tablet by mouth every 6 hours as needed for nausea/vomiting.^Disp: 12 tablet^Rfl: 0 HYDROcodone-Acetaminophen (NORCO) 7.5-325 mg per tablet^Take 1 tablet by mouth every 6 hours as needed for Pain for up to 7 days.^Disp: 28 tablet^Rfl: 0 (Patient not taking: Reported on 11/03/2021) FAMILY HISTORY Problem Relation Age of Onset Breast Cancer Mother cva Stroke Mother Heart Father AAA Colon Cancer Father other (leukemia) Brother Social History Tobacco Use Smoking status: Never Smokeless tobacco: Never Vaping Use Vaping Use: Never used Substance Use Topics Alcohol use: No Drug use: No Objective Physical Exam Vitals and nursing note reviewed. Constitutional: Appearance: Normal appearance. Musculoskeletal: General: Swelling, tenderness and signs of injury present. Right hand: Swelling, tenderness and bony tenderness present. No lacerations. Normal range of motion. Normal capillary refill. Normal pulse. Hands: Skin: General: Skin is warm and dry. Capillary Refill: Capillary refill takes less than 2 seconds. Findings: Bruising present. No erythema or rash. Neurological: Mental Status: She is alert. ASSESSMENT/PLAN: 1. Crushing injury of right middle finger, initial encounter - ICD9: 927.3, ICD10: S67.192A (primary diagnosis) - XR DIGIT GENERAL 3V FRONTAL/LAT/OBL RIGHT Radiologist IMPRESSION: Acute, comminuted fracture of the third distal phalanx subungual tuft. Supervisor Speech: KOLE Transcribe Date/Time: May 06 2022 4:13P Dictated by : ORIN BEAL MD - ACETAMINOPHEN 500 MG TABLET - apply ice to finger tip. - keep elevated. - tylenol for pain. - distal finger splint applied. - change your bandage daily. Keep clean with soap and water. 2. Open fracture of tuft of distal phalanx of finger - ICD9: 816.12, ICD10: S62.639B - CEPHALEXIN 500 MG CAPSULE - CONSULT PANEL TO ORTHOPAEDICS 3. Nausea - ICD9: 787.02, ICD10: R11.0 - ONDANSETRON 4 MG DISINTEGRATING TABLET - Follow-up with your PCP in 3-5 days if symptoms have not improved or sooner if symptoms worsen - Discussed red flags and need for immediate medical evaluation if any occur. - Discussed supportive care treatment with fluids, rest and analgesia. - Discussed expected course of illness Janae Sandoval APRN.HIMA documented in this encounter [facility] 05-04-2022 History of Present illness Narrative Patient presents for B-12 injection. Denies any problems at this time. Patient instructed on any SE of medication, verbalized understanding and agreed to proceed with treatment. Tolerated injection well. Ning Mckeon LPN documented in this encounter [facility] 04-29-2022 History of Present illness Narrative [facility] Date: April 29, 2022 - 8:24 AM Chief Complaint: left sided back pain __ SUBJECTIVE: Ms. Davenport presents to the [facility] for a follow up appointment regarding left lower back pain. She states that since the last visit symptoms have been persistent. The pain is located in the left lumbar region, gluteal region, and left hip and does not radiate. // The pain is described as aching and is rated as 9 on a scale of 0-10. The patient Denies numbness and tingling. Symptoms interfere with physical activity, work, bathing, getting dressed, walking, sitting, and lifting. The pain is exacerbated by sitting, standing, forward flexion, lifting, and walking. The pain is mitigated by sitting, medications, and ice . She is currently receiving medications (tizanidine) through the [facility]. She states she has not been taking it because she did not know what it's for. REVIEW OF SYSTEMS: Constitutional: (-) Weight Gain (-) Weight Loss (+) Fatigue Cardiovascular: (-) hx heart surgery (-) Pacemaker Respiratory: (-) Shortness of Breath (-) Cough (-) Snoring Gastrointestinal: (-) Incontinence (-) Diarrhea (-) Constipation (-) Nausea/Vomiting Endocrine: (-) Thyroid Disorder (+) Diabetes Hematologic: (-) Prolonged Bleeding (+) Easy Bruising Genitourinary: (-) Incontinence (-) Frequency (-) Urinary Urgency Skin: (-) Open sores/wound Neurologic: (-) Headache (-) Double Vision Psychiatric: (-) Depression (-) Anxiety (-) Personal History of Alcohol or Substance Abuse (-) Family History of Alcohol or Substance Abuse __ 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 Contact dermatitis and other eczema, due to unspecified cause Lichen 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 per [facility] outside facility Apr 1997 MORBID OBESITY 08/18/2007 Obstructive sleep apnea Sleep study 2003 Occlusion and stenosis of carotid artery without mention of cerebral infarction 03/09/06 mild stenosis shown on u/s at [facility] u/s repeated 02/02/07 with no change Pure hypercholesterolemia Type II or unspecified type diabetes mellitus with renal manifestations, uncontrolled(250.42) Unspecified glaucoma(365.9) Unspecified pruritic disorder PAST SURGICAL HISTORY Procedure Laterality Date EGD TRANSORAL BIOPSY SINGLE/MULTIPLE 12-15-15 GASTRIC BYPASS 09/14/2007 INCISION & DRAINAGE ABSCESS SIMPLE/SINGLE 2009 ABD WALL and intestine removed LAPS COLECTOMY PRTL W/RMVL TERMINAL ILEUM 02/20/09 polyps LIG/TRNSXJ FLP TUBE ABDL/VAG APPR UNI/BI 1969's Tubal ligation NSL/SINUS NDSC SPHENDT RMVL TISS SPHENOID SINUS PAST SURGICAL HISTORY OF 02/2008 Left total knee PAST SURGICAL HISTORY OF 04/2008 Right total knee ALLERGIES Allergen Reactions Asa [Salicylates] Anaphylaxis Avapro [Irbesartan] Swelling Byetta [Exenatide] Can not remember what effect but not suppose to take it Crestor [Rosuvastat* Duoderm [Other] Rash Eggs [Egg] Diarrhea Not true allergy Erythromycin Myalgia Etodolac Contraindication-Medical Surgical Was told never to take NSAID due to bypass surgery. She also developed severe pain after taking Etodolac that was excruciating Lipitor [Atorvastat* Niacin Unknown Niaspan [Niacin (An* Nsaids (Non-Steroid* Was told to avoid all NSAID's due to bypass surgery Ointments [Other] Can use lotions/creams, but ointments cause itchy/burning and painful rash. Penicillins Rash Pravachol [Pravasta* Sulfa (Sulfonamide * Rash Tape [Other] Zetia [Ezetimibe] Zocor [Simvastatin] Metformin GI Upset diarrhea Current Outpatient Medications Medication Sig tiZANidine (ZANAFLEX) 4 mg tablet Take 1 tablet by mouth twice daily as needed. calcitriol (ROCALTROL) 0.5 mcg capsule Take 1 capsule by mouth once daily. glimepiride (AMARYL) 4 mg tablet Take 2 tablets by mouth daily with breakfast. ferrous sulfate 325 mg (65 mg iron) tablet Take 1 tablet by mouth once daily. metoprolol succinate ER (TOPROL XL) 25 mg 24 hr tablet Take 0.5 tablets by mouth once daily. fluconazole (DIFLUCAN) 200 mg tablet TAKE 1 TABLET 3x per week clobetasol (TEMOVATE) 0.05 % cream 3x per day for 2 weeks and then twice daily thereafter chlorhexidine (HIBICLENS) 4 % external liquid Wash genitale area once a day for infectious vulvitis oxybutynin ER (DITROPAN XL) 10 mg 24 hr tablet Take 1 tablet by mouth once daily as needed. OVERACTIVE BLADDER apixaban (ELIQUIS) 5 mg tab(s) Take 1 tablet by mouth twice daily. glimepiride (AMARYL) 1 mg tablet Take 2 tablets by mouth daily with breakfast. gabapentin (NEURONTIN) 300 mg capsule one in morning, two at bedtime Blood Sugar Diagnostic, Drum (ACCU-CHEK COMPACT PLUS TEST) strip use to check sugars twice a day metFORMIN ER (GLUCOPHAGE XR) 500 mg 24 hr tablet Take 4 tablets by mouth daily with breakfast. blood sugar diagnostic (ACCU-CHEK POLY PLUS TEST STRP) test strip Check sugars 3 times daily diphenhydramine HCl (BENADRYL ORAL) Take by mouth daily at bedtime. HYDROcodone-Acetaminophen (NORCO) 7.5-325 mg per tablet Take 1 tablet by mouth every 6 hours as needed for Pain for up to 7 days. (Patient not taking: Reported on 11/03/2021) cholecalciferol, vitamin D3, (VITAMIN D3 ORAL) Take by mouth once daily. Blood-Glucose Meter, Drum-type (ACCU-CHEK COMPACT PLUS CARE) kit USE DIRECTED. acetaminophen (TYLENOL) 500 mg tablet Take 500 mg by mouth daily at bedtime. COMPOUNDED PRESCRIPTION ONE TOUCH ULTRA 2 TEST STRIPS TESTING 2 TIMES DAILY INSULIN NO DX E11.65 CALCIUM CITRATE/VITAMIN D3 (CALCIUM CITRATE + D ORAL) Take 1 capsule by mouth three times daily. BIOTIN 2,500 MCG TAB Take 2,500 mcg by mouth once daily. ascorbic acid(VITAMIN C 500 MG TAB) Take 500 mg by mouth once daily. pnv/iron,carb/om-3/fa/fat 1(PRE- MULTIVITAMINS WITH MINERALS 27 MG-1 MG-300 MG CAP) Take 1 capsule by mouth once daily. Current Facility-Administered Medications Medication Dose Route Frequency cyanocobalamin 1,000 mcg injection 1,000 mcg INTRAMUSCULAR q 1 MONTH perflutren lipid microspheres 1.3 mL in NaCl (PF) 0.9% 10 mL injection (DEFINITY) INTRAVENOUS DIRECTED PRN sodium chloride 0.9 % (flush) 10 mL (BD POSIFLUSH) 10 mL INTRAVENOUS DIRECTED PRN I have reviewed the nurses notes and I am aware of the family/social history. Since the last evaluation the medical history has not changed. PDMP website checked and validated. All prescriptions have been APPROPRIATELY filled. No suspicious activity was identified. 04/29/2022 by Esequiel Montelongo MD Narcotic Agreement reviewed and signed?: N/A on April 29, 2022 Urine Panel: No results found for: UQCANN, UQBNZL, TMA4TOM, UQAMPH, UQMAMP, UQBUPRE, UQNORBUP, UQMTHD, UQEDDP, UQTRAM, UQDTRM, UQFNTL, UQNFTL, UQCODE, UQMORP, UQDCDN, UQHCOD, UQOXYC, UQHMOR, UQOXYM, UQCREA, UQPH, UQSPGR, UQOXID, UQSPQ The pain panel was N/A PHYSICAL EXAMINATION: Performed in conjunction with observation. The patient was alert and oriented x3. The patient was in no acute distress. Lungs: Clear, negative for dyspnea or distress. CVR: Regular Rate. Negative for SOB or peripheral edema. Neck: Supple. The range of motion was intact. Back: Range of motion of the trunk was limited. Left L-S tenderness. SLR: negative Facet Loading: positive with axial loading and extension. SI joint: negative PSIS tenderness. Extremities: no reported edema or erythema. Motor: negative focal deficits. Sensory: intact to light touch and sharp in the lower extremities Gait: ambulates with cane. ASSESSMENT: Lumbosacral facet joint syndrome (primary encounter diagnosis) Spondylolisthesis of lumbar region Spinal stenosis of lumbar region, unspecified whether neurogenic claudication present PLAN: Prior available imaging studies were reviewed. Findings were discussed. Injection history was reviewed. Medication use and compliance were reviewed. 1. [facility] 2. Interventional procedure options discussed. None at this time. Consider MRI. Consider LESI at L5-S1. 3. Requested Prescriptions Signed Prescriptions Disp Refills tiZANidine (ZANAFLEX) 4 mg tablet 60 tablet 0 Sig: Take 1 tablet by mouth twice daily as needed. 4. Encouraged regular home exercise program. 5) F/U in 2 months. Instructed to call the office if not improving over the next 2 weeks. We will consider obtaining a new MRI of the lumbar spine. The treatment plan was discussed with the patient during the office visit and they verbalized an understanding of it. I have discussed and confirmed the above treatment plan with the patient and I have reviewed the nurses notes and I am aware of the family/social history. I have confirmed ROS findings. Esequiel Montelongo MD cc: Dr. Guillaume Dominguez MD cc: No referring provider defined for this encounter. Phone: N/A Fax: Results of consultation to be transmitted via electronic medical record for those providers who practice within [facility] or with access to [employer] via MD Connect, or via letter. documented in this encounter [facility] 04-28-2022 History of Present illness Narrative PULM FUNCTION SMARTBLOCK: Provider: Guillaume Dominguez MD Assisting Tech: KELSI Carias Spirometry: 1 LV - Box: 1 documented in this encounter [facility] 04-27-2022 History of Present illness Narrative This note was created using Raydianceriter. Subjective Miriam Davenport is a 82 year old female. Patient presents with: F/U 6 months SUBJECTIVE: Miriam Davenport is a 82 year old year old lady here today for 6 month follow up appointment for review of medical conditions. Noted that had pain and went to hospital and had kidney stone that is 17mm. Does not have pain right now. Had really bad dull ache on left when went to ER. Morphine in ER took care of pain. None since. Scheduled for surgery. Still with the lower back pain that did not get better with treatments through Dr. Montelongo. had follow up. Morphine tried and not effective. Tolerating iron. Last labs December. Worries about memory. Mom from stroke when was 82yo. Lightheadedness. Needs to drink more water. Still ongoing exhaustion. Hard to walk from chair to kitchen and back dyspnea on exertion. Reviewed echo this year showed good EF 61% but also grade I left ventricular diastolic dysfunction. RV systolic function normal. Reviewed issues with lichen sclerosus and prior severe infection. Very grateful for Dr. Walters's expertise and care when was so severe and she was worked into her schedule right away. Terrible cough. Long time. 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 Contact dermatitis and other eczema, due to unspecified cause Lichen 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 per [facility] outside facility Apr 1997 MORBID OBESITY 08/18/2007 Obstructive sleep apnea Sleep study 2003 Occlusion and stenosis of carotid artery without mention of cerebral infarction 03/09/06 mild stenosis shown on u/s at [facility] u/s repeated 02/02/07 with no change Pure hypercholesterolemia Type II or unspecified type diabetes mellitus with renal manifestations, uncontrolled(250.42) Unspecified glaucoma(365.9) Unspecified pruritic disorder Current Outpatient Medications Medication Sig calcitriol (ROCALTROL) 0.5 mcg capsule Take 1 capsule by mouth once daily. glimepiride (AMARYL) 4 mg tablet Take 2 tablets by mouth daily with breakfast. ferrous sulfate 325 mg (65 mg iron) tablet Take 1 tablet by mouth once daily. tiZANidine (ZANAFLEX) 4 mg tablet Take 1 tablet by mouth twice daily as needed. metoprolol succinate ER (TOPROL XL) 25 mg 24 hr tablet Take 0.5 tablets by mouth once daily. fluconazole (DIFLUCAN) 200 mg tablet TAKE 1 TABLET 3x per week clobetasol (TEMOVATE) 0.05 % cream 3x per day for 2 weeks and then twice daily thereafter chlorhexidine (HIBICLENS) 4 % external liquid Wash genitale area once a day for infectious vulvitis oxybutynin ER (DITROPAN XL) 10 mg 24 hr tablet Take 1 tablet by mouth once daily as needed. OVERACTIVE BLADDER apixaban (ELIQUIS) 5 mg tab(s) Take 1 tablet by mouth twice daily. glimepiride (AMARYL) 1 mg tablet Take 2 tablets by mouth daily with breakfast. gabapentin (NEURONTIN) 300 mg capsule one in morning, two at bedtime Blood Sugar Diagnostic, Drum (ACCU-CHEK COMPACT PLUS TEST) strip use to check sugars twice a day metFORMIN ER (GLUCOPHAGE XR) 500 mg 24 hr tablet Take 4 tablets by mouth daily with breakfast. blood sugar diagnostic (ACCU-CHEK POLY PLUS TEST STRP) test strip Check sugars 3 times daily diphenhydramine HCl (BENADRYL ORAL) Take by mouth daily at bedtime. HYDROcodone-Acetaminophen (NORCO) 7.5-325 mg per tablet Take 1 tablet by mouth every 6 hours as needed for Pain for up to 7 days. (Patient not taking: Reported on 11/03/2021) cholecalciferol, vitamin D3, (VITAMIN D3 ORAL) Take by mouth once daily. Blood-Glucose Meter, Drum-type (ACCU-CHEK COMPACT PLUS CARE) kit USE DIRECTED. acetaminophen (TYLENOL) 500 mg tablet Take 500 mg by mouth daily at bedtime. COMPOUNDED PRESCRIPTION ONE TOUCH ULTRA 2 TEST STRIPS TESTING 2 TIMES DAILY INSULIN NO DX E11.65 CALCIUM CITRATE/VITAMIN D3 (CALCIUM CITRATE + D ORAL) Take 1 capsule by mouth three times daily. BIOTIN 2,500 MCG TAB Take 2,500 mcg by mouth once daily. ascorbic acid(VITAMIN C 500 MG TAB) Take 500 mg by mouth once daily. pnv/iron,carb/om-3/fa/fat 1(PRE-JIMY MULTIVITAMINS WITH MINERALS 27 MG-1 MG-300 MG CAP) Take 1 capsule by mouth once daily. Current Facility-Administered Medications Medication Dose Route Frequency cyanocobalamin 1,000 mcg injection 1,000 mcg INTRAMUSCULAR q 1 MONTH perflutren lipid microspheres 1.3 mL in NaCl (PF) 0.9% 10 mL injection (DEFINITY) INTRAVENOUS DIRECTED PRN sodium chloride 0.9 % (flush) 10 mL (BD POSIFLUSH) 10 mL INTRAVENOUS DIRECTED PRN Review of Systems Objective BP 138/82 Pulse 88 Wt 112 kg (247 lb) SpO2 97% BMI 39.87 kg/m Last 5 Encounter Wt Readings: Date: Wt: 04/27/2022 112 kg (247 lb) 04/07/2022 109.8 kg (242 lb) 03/12/2022 112.5 kg (248 lb) 03/11/2022 112.6 kg (248 lb 4.8 oz) 03/03/2022 111.1 kg (245 lb) No waist measurement recorded Estimated body mass index is 39.87 kg/m as calculated from the following: Height as of 04/07/22: 167.6 cm (5' 6 ). Weight as of this encounter: 112 kg (247 lb). Last 5 Encounter BP Readings: Date: BP: 04/27/2022 138/82 03/12/2022 140/87 03/04/2022 107/77 03/03/2022 124/72 02/10/2022 152/89 Physical Exam Constitutional: Appearance: Normal appearance. She is obese. HENT: Head: Normocephalic. Eyes: Conjunctiva/sclera: Conjunctivae normal. Cardiovascular: Rate and Rhythm: Normal rate and regular rhythm. Heart sounds: Normal heart sounds. Pulmonary: Effort: Pulmonary effort is normal. Breath sounds: Normal breath sounds. Skin: General: Skin is warm and dry. Neurological: General: No focal deficit present. Mental Status: She is alert and oriented to person, place, and time. Psychiatric: Mood and Affect: Mood normal. Behavior: Behavior normal. Thought Content: Thought content normal. Judgment: Judgment normal. Last labs: Component Latest Ref Rng & Units 08/21/2021 09/26/2021 10/03/2021 10/09/2021 01/16/2022 WBC 3.70 - 11.00 k/uL 9.87 10.53 10.07 RBC 3.90 - 5.20 m/uL 4.66 4.41 4.17 Hemoglobin 11.5 - 15.5 g/dL 14.2 13.5 12.5 Hematocrit 36.0 - 46.0 % 43.9 40.4 38.8 MCV 80.0 - 100.0 fL 94.2 91.6 93.0 MCH 26.0 - 34.0 pg 30.5 30.6 30.0 MCHC 30.5 - 36.0 g/dL 32.3 33.4 32.2 RDW-CV 11.5 - 15.0 % 14.2 14.2 14.2 Platelet Count 150 - 400 k/uL 293 270 258 MPV 9.0 - 12.7 fL 11.1 11.0 10.9 Neut% % 68.5 72.8 Abs Neut (ANC) 1.45 - 7.50 k/uL 6.76 7.67 (H) Lymph% % 20.9 17.3 Abs Lymph 1.00 - 4.00 k/uL 2.06 1.82 Bowman% % 8.2 7.7 Abs Bowman <0.87 k/uL 0.81 0.81 Eosin% % 1.2 1.0 Abs Eosin <0.46 k/uL 0.12 0.11 Baso% % 0.7 0.7 Abs Baso <0.11 k/uL 0.07 0.07 Immature Gran % % 0.5 0.5 IMMATURE GRANS (ABS) <0.10 k/uL 0.05 0.05 NRBC /100 WBC 0.0 0.0 Absolute nRBC <0.01 k/uL <0.01 <0.01 <0.01 DTYPE Auto Auto Protein, Total 6.3 - 8.0 g/dL 7.2 6.9 6.4 Albumin 3.9 - 4.9 g/dL 3.9 3.8 (L) 3.5 (L) Calcium 8.5 - 10.2 mg/dL 9.1 9.1 8.8 Bilirubin, Total 0.2 - 1.3 mg/dL 0.2 0.2 0.2 Alkaline Phosphatase 34 - 123 U/L 100 108 100 AST 13 - 35 U/L 14 13 12 (L) ALT 7 - 38 U/L 9 10 13 Glucose 74 - 99 mg/dL 128 (H) 100 (H) 137 (H) BUN 7 - 21 mg/dL 21 14 16 Creatinine 0.58 - 0.96 mg/dL 0.70 0.60 0.62 Sodium 136 - 144 mmol/L 137 139 136 Potassium 3.7 - 5.1 mmol/L 4.3 4.2 4.2 Chloride 97 - 105 mmol/L 104 104 104 CO2 22 - 30 mmol/L 23 25 21 (L) Anion Gap 9 - 18 mmol/L 10 10 11 eGFR >=60 mL/min/1.73m 88 91 91 Creatinine, Ur Random (UCRR) 20.0 - 300.0 mg/dL 88.8 116.2 Albumin, Urine Random mg/L <12.0 187.5 Albumin/Creat Ratio <30 mg/g <14 161 (H) Iron 41 - 186 ug/dL 28 (L) 31 (L) TIBC 232 - 386 ug/dL 330 310 Transferrin Saturation 15.0 - 57.0 % 8 (L) 10.0 (L) Hemoglobin A1C 4.3 - 5.6 % 6.9 (H) 7.3 (H) Estimated Average Glucose mg/dL 151 163 Vitamin D 25 Hydroxy 31.0 - 80.0 ng/mL 35.7 Vitamin B12 232-1,245 pg/mL 645 Ferritin 14.7 - 205.1 ng/mL 311.0 (H) 304.0 (H) 347.0 (H) Folate >4.7 ng/mL >20.0 Copper 80 - 155 ug/dL 131 Zinc 60 - 120 ug/dL 63 TSH 0.270 - 4.200 mIU/L 1.840 Assessment and Plan Encounter Diagnosis ICD-10-CM 1. FIELD (dyspnea on exertion) R06.09 SPIROMETRY WITH DILATOR IF OBSTRUCTED LUNG VOLUMES 2. Dietary iron deficiency without anemia E61.1 IRON + TIBC FERRITIN BLD FOLATE SERUM H/H had been gradually dropping and iron store as well.Rule out anemia. Continue supplement but if not adequate, may need iron infusion 3. Grade I diastolic dysfunction I51.89 Encouraged adequate hydration, weight loss. Refer to cardiology as indicated 4. Chronic cough R05.3 SPIROMETRY WITH DILATOR IF OBSTRUCTED LUNG VOLUMES Checking PFTs. Further evaluation as needed 5. Renal calculus, left N20.0 6. Primary hypertension I10 COMP METABOLIC PANEL CBC Control adequate though ideally 120/70 or better. See if improves with treating other issues, plus get weight down. 7. Hypoalbuminemia E88.09 COMP METABOLIC PANEL States eats a lot of protein. Encouraged to keep up efforts and will see how labs are today. 8. DM (diabetes mellitus), type 2 with neurological complications ([facility]) E11.49 COMP METABOLIC PANEL HGB A1C 9. B12 deficiency E53.8 VITAMIN B12 BLOOD 10. Vitamin D deficiency E55.9 CANCELED: VITAMIN D 25 HYDROXY 11. Irregular heart rhythm I49.9 ECG COMPLETE ECG showed sinus rhythm, not a fib 12. Memory difficulty R41.3 Forgets what was going to say mid conversation;forgets names(not new but worse);takes time to recall info. Monitor for now.Work on exercise and weight loss 13. Class 2 severe obesity due to excess calories with serious comorbidity and body mass index (BMI) of 39.0 to 39.9 in adult ([facility]) E66.01 Z68.39 Weight has trended down though up after ving.Keep up efforts at healthier diet and try to increase activity--planning to go to [employer] for exercise 14. History of Jordin-en-Y gastric bypass Z98.84 COMP METABOLIC PANEL CBC IRON + TIBC FERRITIN BLD FOLATE SERUM VITAMIN B12 BLOOD HGB A1C Above issues addressed with patient. Patient involved in shared decision making for management of medical issues. History and medications reviewed. Epic updated as needed Refills and/or prescriptions taken care of and meds adjusted as indicated after reviewed history, exam and labs. Health Maintenance reviewed. Updated record and/or ordered tests as recorded. Encouraged on efforts at healthy diet and regular exercise and adequate sleep. Guillaume Dominguez MD documented in this encounter [facility] 04-10-2022 Miscellaneous Notes Called patient and scheduled. Patient left voicemail 04/09/2022 at 1257 Patient states she is S/P RFA 14 days and is still having significant pain This RN recommends patient to schedule follow up with Dr. Montelongo to discuss care Will forward to clerical team to assist with scheduling follow up with Dr. Montelongo documented in this encounter [facility] 04-06-2022 History of Present illness Narrative Patient presents for B-12 injection. Denies any problems at this time. Patient instructed on any SE of medication, verbalized understanding and agreed to proceed with treatment. Tolerated injection well. Ning Mckeon LPN documented in this encounter [facility] 03-27-2022 Miscellaneous Notes Handicap Placard mailed to pt. Marquita Mclaughlin LPN Rx sent, letter printed Patient has been identified by name and date of : Yes Patient phones for refill(s): Requested Prescriptions Pending Prescriptions Disp Refills ferrous sulfate 325 mg (65 mg iron) tablet 30 tablet 0 Sig: Take 1 tablet by mouth once daily. Requesting handicap parking placard be mailed to home address. Date of last office visit with pcp: 02/10/2022 Future appt: 04/27/2022 Last 2 Encounter Wt Readings: Date: Wt: 03/11/2022 112.6 kg (248 lb 4.8 oz) 03/03/2022 111.1 kg (245 lb) Previous labs/tests for medication: Blood Pressure: BUN (mg/dL) Date Value 01/16/2022 16 02/12/2021 14 Sodium (mmol/L) Date Value 01/16/2022 136 02/12/2021 138 Last 1 Encounter BP Readings: Date: BP: 03/04/2022 107/77 Liver Function: ALT (U/L) Date Value 01/16/2022 13 02/12/2021 7 AST (U/L) Date Value 01/16/2022 12 02/12/2021 11 Please advise. Thank you. Anne Jennings RN documented in this encounter [facility] 03-24-2022 Miscellaneous Notes Requester: Patient Patients last Endocrinology visit occurred 08/22/21. Follow-up evaluation has been established 06/10/22. Requested Prescriptions Pending Prescriptions Disp Refills calcitriol (ROCALTROL) 0.5 mcg capsule 90 capsule 4 Sig: Take 1 capsule by mouth once daily. glimepiride (AMARYL) 4 mg tablet 180 tablet 3 Sig: Take 2 tablets by mouth daily with breakfast. Refused Prescriptions Disp Refills gabapentin (NEURONTIN) 300 mg capsule 90 capsule 11 Sig: one in morning, two at bedtime If patient is due for an appointment please route to provider for refill consideration and also to the endo scheduling pool. PSS NOTE: Patient needs scheduled appointment No. Patient has been identified by name and date of : Yes Requested Prescriptions Pending Prescriptions Disp Refills calcitriol (ROCALTROL) 0.5 mcg capsule 90 capsule 4 Sig: Take 1 capsule by mouth once daily. gabapentin (NEURONTIN) 300 mg capsule 90 capsule 11 Sig: one in morning, two at bedtime glimepiride (AMARYL) 4 mg tablet 180 tablet 3 Sig: Take 2 tablets by mouth daily with breakfast. RX INSTRUCTIONS: Patient aware RX will be sent to pharmacy. No need to notify patient. [id number] [employer] Pss documented in this encounter [facility] 03-19-2022 Miscellaneous Notes Called patient in regards to message below. Message was sent to patient via [employer] on 03/10/2022, but was not read. I explained the vaginal culture obtained in the office was growing both yeast and bacteria. Dr. Walters recommended she continue the fluconazole 200 mg twice weekly. She also recommended starting a topical antibiotic called gentamicin cream to be applied to the groin area twice daily for 2 weeks. I advised the patient to let us know if she does not tolerate the medication or if her symptoms worsen or fail to improve. Patient voiced understanding and was appreciative the phone call. Sue Villarreal MD Dermatology Resident March 19, 2022 Pt called and need to know where to apply the gentamicin cream and what is it use for documented in this encounter [facility] 03-11-2022 History of Present illness Narrative SUBJECTIVE: Miriam Davenport [facility] for a follow up appointment for sacroiliac pain (left). Since the last visit, Miriam Davenport states the pain has been persistent. Current pain intensity is 4 on a scale of 0-10. Pain located in Back and Left leg area and radiates left hip. Pain described as aching The patient Denies numbness and tingling. Symptoms interfere with physical activity, work, walking, sitting, and lifting. Pain is exacerbated by sitting, standing, forward flexion, lifting, and walking. Pain is mitigated by sitting, medications, and ice . The patient is overall improved with the injections by 99%. REVIEW OF SYSTEMS: Constitutional: (-) Weight Gain (-) Weight Loss (+) Fatigue Cardiovascular: (-) hx heart surgery (-) Pacemaker Respiratory: (-) Shortness of Breath (-) Cough (-) Snoring Gastrointestinal: (-) Incontinence (-) Diarrhea (-) Constipation (-) Nausea/Vomiting Endocrine: (-) Thyroid Disorder (+) Diabetes Hematologic: (-) Prolonged Bleeding (+) Easy Bruising Genitourinary: (-) Incontinence (-) Frequency (-) Urinary Urgency Skin: (-) Open sores/wound Neurologic: (-) Headache (-) Double Vision Psychiatric: (-) Depression (-) Anxiety (-) Personal History of Alcohol or Substance Abuse (-) Family History of Alcohol or Substance Abuse CHIEF COMPLAINT:Patient presents with: Injection Followup OBJECTIVE: Pulse 92 Ht 5' 6 (1.68m) Wt 248 lb 4.8 oz (112.6kg) SpO2 96% BMI 40.10 kg/(m^2). PHYSICAL EXAMINATION: General appearance: Well appearing, in no acute distress, alert and oriented x3 Skin: Skin color, texture, turgor normal, no rashes or lesions Neck: No pain to palpation over the cervical paraspinous muscles. No pain with neck flexion, extension, or lateral flexion Cardiovascular: Regular, rate and rhythm Lungs: Normal respiratory rate and rhythm, Lungs clear to auscultation Back: Intact range of motion with pain reproduction. Straight Leg Raise: sitting pos left SI JOINT: left PSIS tenderness, pos Saad's, pos Sacral thrust. Extremities: No deformities, edema, or skin discoloration. Good capillary refill. Musculoskeletal: No Joint pain, no edema , no extremity tenderness Neuro: No loss of sensation is noted. Motor skills intact Station and Gait: antalgic gait Motor: Exhibits full strength in all four extremities. Trigger points: sacroiliac area. ASSESSMENT: Assessment : Patient presents for a follow up Patient had a repeat left SI injection on 02-17-22 and reports 99% improvement. She would like to proceed with RFA Patient has a chronic hx of left SI tenderness Discussed muscle relaxant is experiencing muscle cramps and tightness after the RFA Encounter Diagnosis ICD-10-CM 1. 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 All prescriptions have been APPROPRIATELY filled. No suspicious activity was identified. 03/11/2022 by Oralia Garcia APRN.HIMA Narcotic Agreement reviewed and signed?: N/A on March 11, 2022 The pain panel was N/A PLAN: Injection history was reviewed. Medication use and compliance were reviewed. 1. Reviewed procedural instructions. Handout given 2. The following approved medication requests have been transmitted electronically. Requested Prescriptions Signed Prescriptions Disp Refills tiZANidine (ZANAFLEX) 4 mg tablet 60 tablet 0 Sig: Take 1 tablet by mouth twice daily as needed. 3. Interventional procedure options discussed. Ordered and scheduled cooled left SI RFA 4. Encouraged regular home exercise program. 5) F/U in 3 months I spent a total of 20 minutes on the date of the service which included preparing to see the patient, [id number] patient care, completing clinical documentation, performing a medically appropriate examination, and ordering medications, tests, or procedures. The above plan and management options were discussed at length with patient. Patient is in agreement with the above and verbalized understanding. Oralia Garcia APRN, CNP March 11, 2022 documented in this encounter [facility] 03-04-2022 Instructions Sue Villarreal MD - 03/04/2022 3:37 PM EDT - Vaginal culture today for yeast and bacteria - Further treatment pending results - Continue clobetasol cream to genital area and perirectal area =as needed for itching - Use ice,ice packs, frozen peas, or cold water to reduce itching - Continue hibclens wash to genital area - Follow with urology for renal stone Follow-up pending culture results documented in this encounter [facility] 03-04-2022 History of Present illness Narrative Established patient LV: 01/14/22 CC: LSA genital LSA and infectious vulvitis, diabetic 2 HPI: 82 year old female morbidly obese - Patient feels like her blood sugar may be low, only had eggs today at 6am - Unaccompanied today, says daughter in law dropped her off - Unsteady on feet, had to be assisted down hallway, also reporting nausea - [facility] called for assistance today with obtaining blood sugar reading and evaluation for potential admission - After eating some vangie crackers and drinking juice, patient's BS was 188, VSS, no ED evaluation warranted - Patient reports improvement, denies any further nausea 1) Lichen Sclerosus - genital area vulva and perianal ulcerated - No change to condition - Fell last week, went to ED to be evaluated - Found out she has a kidney stone, was in pain which Morphine helped control, patient says she is no longer using this - Occasional itching, not all the time, mostly at night - Still using Hibiclens which helps Current Treatment: - Clobetasol Cream as needed (once or twice a day) - Hibiclens wash - every 2 to 3 days - Diflucan (at least twice, unsure of how frequently she's taking this) Relevant past medical history: - Hx of LSA for 30 years vulvar - No allergic rhinitis / asthma - Hx of cold sores every 8 months - Pulmonary embolus after steroid procedure done (09/16/20) on lower back for pain. - States has been sick and has not been taking good care of herself. Feels like she may be developing a bladder infection. Intermittent pain and discomfort. Denies burning/frequency with urination. Was prescribed Keflex by urgent care x 7 days - did not help. Took an antibiotic at home that was prescribed for (believes it was Cipro) and that really helped symptoms. However, now symptoms have returned. 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 Contact dermatitis and other eczema, due to unspecified cause Lichen 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 per [facility] outside facility Apr 1997 MORBID OBESITY 08/18/2007 Obstructive sleep apnea Sleep study 2002 Occlusion and stenosis of carotid artery without mention of cerebral infarction 03/09/06 mild stenosis shown on u/s at [facility] u/s repeated 02/02/07 with no change Pure hypercholesterolemia Type II or unspecified type diabetes mellitus with renal manifestations, uncontrolled(250.42) Unspecified glaucoma(365.9) Unspecified pruritic disorder ALLERGIES Allergen Reactions Asa [Salicylates] Anaphylaxis Avapro [Irbesartan] Swelling Byetta [Exenatide] Can not remember what effect but not suppose to take it Crestor [Rosuvastat* Duoderm [Other] Rash Eggs [Egg] Diarrhea Not true allergy Erythromycin Myalgia Etodolac Contraindication-Medical Surgical Was told never to take NSAID due to bypass surgery. She also developed severe pain after taking Etodolac that was excruciating Lipitor [Atorvastat* Niacin Unknown Niaspan [Niacin (An* Nsaids (Non-Steroid* Was told to avoid all NSAID's due to bypass surgery Ointments [Other] Can use lotions/creams, but ointments cause itchy/burning and painful rash. Penicillins Rash Pravachol [Pravasta* Sulfa (Sulfonamide * Rash Tape [Other] Zetia [Ezetimibe] Zocor [Simvastatin] Metformin GI Upset diarrhea Family History: - No psoriasis or atopy - No autoimmune diseases Social: - No tobacco, EtOh, or recreational drug use ROS: Denies fever/chills, joint pain, abdominal pain, headaches, cough. Medications: Current Facility-Administered Medications on File Prior to Visit Medication cyanocobalamin 1,000 mcg injection PE: Gen: Well appearing female in NAD Neuro: Alert, pleasant, cooperative- obese Focused exam of the genitals and erirectal area notable for: Genital exam photo - White patches on labia minora, introitus area and ulcerations and perirectal area - Moderate erythema No discharge A/P: 82 year old female with:Diabetes, over weight 1. Chronic Vulvitis - ulcerated , pruritic Lichen sclerosis - Skin irritation improved 2. Chronic LSA genital and perirectal - Improved 3. Hx herpes simplex 4. Hx of damian infections 5. Diabetes II 6. Many allergies to drugs and topicals especially ointments 7. Diabetes II 8. Urinary infection/Renal calculi PLAN: - Vaginal culture today for yeast and bacteria - Further treatment pending results - Continue clobetasol cream to genital area and perirectal area =as needed for itching - Use ice,ice packs, frozen peas, or cold water to reduce itching - Continue hibclens wash to genital area - Follow with urology for renal stone Following MOUSTAPHA evaluation patient was stable at time of discharge. Follow-up pending culture results The documentation for this note was completed by Milla Flores RN acting as scribe for Radha Walters MD. March 04, 2022 3:05 PM. Sue Villarreal MD Dermatology PGY-3 I agree with the Chief Complaint, ROS, and Past Histories independently gathered by the clinical clinical support manager and the remaining scribed note accurately describes my personal service to the patient. I spent a total of 25 minutes on the date of the service which included preparing to see the patient, [id number] patient care, completing clinical documentation, obtaining and/or reviewing separately obtained history, performing a medically appropriate examination, counseling and educating the patient/family/caregiver, ordering medications, tests, or procedures, independently interpreting results (not separately reported), and communicating results to the patient/family/caregiver. I Radha Walters MD Culture rare yeast And Moderate Klebsiella pneumoniaeAbnormal Culture, Wound Few Normal urogenital floraAbnormal Gram Stain Rare Gram negative bacilliAbnormal Gram Stain Rare Polymorphonuclear leukocytesAbnormal On treatment topically and oral fluconazole . Radha Walters MD documented in this encounter [facility] 03-02-2022 History of Present illness Narrative Patient presents for B-12 injection. Denies any problems at this time. Patient instructed on any SE of medication, verbalized understanding and agreed to proceed with treatment. Tolerated injection well. Pt to also receive COVID booster. Ning Mckeon LPN documented in this encounter [facility] 02-27-2022 Miscellaneous Notes Patient left voicemail 02/26/2022 Patient states that she had sacroiliac block with Dr. Montelongo on 02/17/2022 Patient states by the the evening of 02/20/2022, her pain was back Will need to obtain percentage of improvement during the time it was working as the local anesthetic wore of by the evening of 02/20/2022 documented in this encounter [facility] 02-16-2022 Miscellaneous Notes Patient contacted at this time Patient states she is having chest pain for the last 10 minutes or so. Similar to when she found out she had a blood clot last time Patient instructed to proceed to the ER Patient agrees and will be going to [place] [facility] Patient to contact office if she needs to cancel procedure for tomorrow 02/17/2022 Patient called to report that she stopped taking Eliquis in preparation for her procedure tomorrow, but is now experiencing subtle chest pain. Transferred patient to triage nurse line. Also copying Dr. Montelongo and clinical staff to this encounter. Please advise, Awilda Tate documented in this encounter [facility] 02-10-2022 Instructions Guillaume Dominguez MD - 02/10/2022 3:31 PM EDT Decrease iron pill to take Wednesday and Wednesday. Okay to try stopping the Metoprolol XL 25 mg half pill daily. If BP goes up over 140/90 or heart rate over 90 persistently, resume metoprolol and let me know if you want to try another med to replace. Get liver once a week to help with iron stores and protein. Gets some veggies in. documented in this encounter [facility] 02-10-2022 History of Present illness Narrative This note was created using Raydian[employer]. Subjective Miriam Davenport is a 82 year old female. Patient presents with: Follow Up SUBJECTIVE: Miriam Davenport is a 82 year old year old lady here today for follow up appointment for review of medical conditions. Patient without issue with BP. No recent ER visit for her. was in though. Noted concerns about iron. Noted extreme weariness. Doing better since started iron. taking daily Lightheadedness after gets up from sleeping. Resolves after sits at edge of be a few minutes. No problems when gets up and walking. Has BP cuff. States that gets eggs, milk, meat. Doesn't eat veggies. 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 Contact dermatitis and other eczema, due to unspecified cause Lichen 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 per [facility] outside facility Apr 1997 MORBID OBESITY 08/18/2007 Obstructive sleep apnea Sleep study 2003 Occlusion and stenosis of carotid artery without mention of cerebral infarction 03/09/06 mild stenosis shown on u/s at [facility] u/s repeated 02/02/07 with no change Pure hypercholesterolemia Type II or unspecified type diabetes mellitus with renal manifestations, uncontrolled(250.42) Unspecified glaucoma(365.9) Unspecified pruritic disorder Current Outpatient Medications Medication Sig ciprofloxacin HCl (CIPRO) 500 mg tablet Take 1 tablet by mouth twice daily. ferrous sulfate 325 mg (65 mg iron) tablet Take 1 tablet by mouth once daily. metoprolol succinate ER (TOPROL XL) 25 mg 24 hr tablet Take 0.5 tablets by mouth once daily. fluconazole (DIFLUCAN) 200 mg tablet TAKE 1 TABLET 3x per week clobetasol (TEMOVATE) 0.05 % cream 3x per day for 2 weeks and then twice daily thereafter chlorhexidine (HIBICLENS) 4 % external liquid Wash genitale area once a day for infectious vulvitis oxybutynin ER (DITROPAN XL) 10 mg 24 hr tablet Take 1 tablet by mouth once daily as needed. OVERACTIVE BLADDER apixaban (ELIQUIS) 5 mg tab(s) Take 1 tablet by mouth twice daily. glimepiride (AMARYL) 1 mg tablet Take 2 tablets by mouth daily with breakfast. gabapentin (NEURONTIN) 300 mg capsule one in morning, two at bedtime Blood Sugar Diagnostic, Drum (ACCU-CHEK COMPACT PLUS TEST) strip use to check sugars twice a day metFORMIN ER (GLUCOPHAGE XR) 500 mg 24 hr tablet Take 4 tablets by mouth daily with breakfast. glimepiride (AMARYL) 4 mg tablet Take 2 tablets by mouth daily with breakfast. (Patient taking differently: Take 4 mg by mouth daily with breakfast. ) blood sugar diagnostic (ACCU-CHEK POLY PLUS TEST STRP) test strip Check sugars 3 times daily calcitriol (ROCALTROL) 0.5 mcg capsule Take 1 capsule by mouth once daily. diphenhydramine HCl (BENADRYL ORAL) Take by mouth daily at bedtime. apixaban (ELIQUIS) 5 mg tab(s) Take by mouth. HYDROcodone-Acetaminophen (NORCO) 7.5-325 mg per tablet Take 1 tablet by mouth every 6 hours as needed for Pain for up to 7 days. (Patient not taking: Reported on 11/03/2021) cholecalciferol, vitamin D3, (VITAMIN D3 ORAL) Take by mouth once daily. lidocaine (XYLOCAINE) 2 % jelly FOR EXTERNAL USE ONLY.APPLY TO: vulva three times daily as needed (Patient not taking: Reported on 11/03/2021 ) Blood-Glucose Meter, Drum-type (ACCU-CHEK COMPACT PLUS CARE) kit USE DIRECTED. acetaminophen (TYLENOL EXTRA STRENGTH) 500 mg tablet Take 500 mg by mouth daily at bedtime. COMPOUNDED PRESCRIPTION ONE TOUCH ULTRA 2 TEST STRIPS TESTING 2 TIMES DAILY INSULIN NO DX E11.65 CALCIUM CITRATE/VITAMIN D3 (CALCIUM CITRATE + D ORAL) Take 1 capsule by mouth three times daily. BIOTIN 2,500 MCG TAB Take 2,500 mcg by mouth once daily. ascorbic acid(VITAMIN C 500 MG TAB) Take 500 mg by mouth once daily. pnv/iron,carb/om-3/fa/fat 1(PRE- MULTIVITAMINS WITH MINERALS 27 MG-1 MG-300 MG CAP) Take 1 capsule by mouth once daily. Current Facility-Administered Medications Medication Dose Route Frequency cyanocobalamin 1,000 mcg injection 1,000 mcg INTRAMUSCULAR q 1 MONTH perflutren lipid microspheres 1.3 mL in NaCl (PF) 0.9% 10 mL injection ([employer]) INTRAVENOUS DIRECTED PRN sodium chloride 0.9 % (flush) 10 mL (BD POSIFLUSH) 10 mL INTRAVENOUS DIRECTED PRN Review of Systems Objective BP 112/68 Pulse 82 Ht 165.1 cm (5' 5 ) Wt 111.6 kg (246 lb) BMI 40.94 kg/m Physical Exam Constitutional: Appearance: Normal appearance. HENT: Head: Normocephalic. Eyes: Conjunctiva/sclera: Conjunctivae normal. Cardiovascular: Rate and Rhythm: Normal rate and regular rhythm. Heart sounds: Normal heart sounds. Pulmonary: Effort: Pulmonary effort is normal. Breath sounds: Normal breath sounds. Skin: General: Skin is warm and dry. Neurological: General: No focal deficit present. Mental Status: She is alert and oriented to person, place, and time. Psychiatric: Mood and Affect: Mood normal. Behavior: Behavior normal. Thought Content: Thought content normal. Judgment: Judgment normal. Component Latest Ref Rng & Units 09/26/2021 10/03/2021 10/09/2021 01/16/2022 WBC 3.70 - 11.00 k/uL 9.87 10.53 10.07 RBC 3.90 - 5.20 m/uL 4.66 4.41 4.17 Hemoglobin 11.5 - 15.5 g/dL 14.2 13.5 12.5 Hematocrit 36.0 - 46.0 % 43.9 40.4 38.8 MCV 80.0 - 100.0 fL 94.2 91.6 93.0 MCH 26.0 - 34.0 pg 30.5 30.6 30.0 MCHC 30.5 - 36.0 g/dL 32.3 33.4 32.2 RDW-CV 11.5 - 15.0 % 14.2 14.2 14.2 Platelet Count 150 - 400 k/uL 293 270 258 MPV 9.0 - 12.7 fL 11.1 11.0 10.9 Neut% % 68.5 72.8 Abs Neut (ANC) 1.45 - 7.50 k/uL 6.76 7.67 (H) Lymph% % 20.9 17.3 Abs Lymph 1.00 - 4.00 k/uL 2.06 1.82 Bowman% % 8.2 7.7 Abs Bowman <0.87 k/uL 0.81 0.81 Eosin% % 1.2 1.0 Abs Eosin <0.46 k/uL 0.12 0.11 Baso% % 0.7 0.7 Abs Baso <0.11 k/uL 0.07 0.07 Immature Gran % % 0.5 0.5 IMMATURE GRANS (ABS) <0.10 k/uL 0.05 0.05 NRBC /100 WBC 0.0 0.0 Absolute nRBC <0.01 k/uL <0.01 <0.01 <0.01 DTYPE Auto Auto Protein, Total 6.3 - 8.0 g/dL 7.2 6.9 6.4 Albumin 3.9 - 4.9 g/dL 3.9 3.8 (L) 3.5 (L) Calcium 8.5 - 10.2 mg/dL 9.1 9.1 8.8 Bilirubin, Total 0.2 - 1.3 mg/dL 0.2 0.2 0.2 Alkaline Phosphatase 34 - 123 U/L 100 108 100 AST 13 - 35 U/L 14 13 12 (L) ALT 7 - 38 U/L 9 10 13 Glucose 74 - 99 mg/dL 128 (H) 100 (H) 137 (H) BUN 7 - 21 mg/dL 21 14 16 Creatinine 0.58 - 0.96 mg/dL 0.70 0.60 0.62 Sodium 136 - 144 mmol/L 137 139 136 Potassium 3.7 - 5.1 mmol/L 4.3 4.2 4.2 Chloride 97 - 105 mmol/L 104 104 104 CO2 22 - 30 mmol/L 23 25 21 (L) Anion Gap 9 - 18 mmol/L 10 10 11 eGFR >=60 mL/min/1.73m 88 91 91 Iron 41 - 186 ug/dL 28 (L) 31 (L) TIBC 232 - 386 ug/dL 330 310 Transferrin Saturation 15.0 - 57.0 % 8 (L) 10.0 (L) Creatinine, Ur Random (UCRR) 20.0 - 300.0 mg/dL 116.2 Albumin, Urine Random mg/L 187.5 Albumin/Creat Ratio <30 mg/g 161 (H) Hemoglobin A1C 4.3 - 5.6 % 7.3 (H) Estimated Average Glucose mg/dL 163 Vitamin D 25 Hydroxy 31.0 - 80.0 ng/mL 35.7 Vitamin B12 232-1,245 pg/mL 645 Ferritin 14.7 - 205.1 ng/mL 311.0 (H) 304.0 (H) 347.0 (H) Folate >4.7 ng/mL >20.0 Copper 80 - 155 ug/dL 131 Zinc 60 - 120 ug/dL 63 TSH 0.270 - 4.200 mIU/L 1.840 Assessment and Plan Encounter Diagnosis ICD-10-CM 1. Fatigue, unspecified type R53.83 2. Primary hypertension I10 Riky lsee how she does without beta [place] and replace if needed 3. Hypoalbuminemia E88.09 4. Dietary iron deficiency without anemia E61.1 5. Elevated ferritin R79.89 6. Class 3 severe obesity due to excess calories with body mass index (BMI) of 40.0 to 44.9 in adult, unspecified whether serious comorbidity present (HCC) E66.01 Z68.41 Above issues addressed with patient. Patient involved in shared decision making for management of medical issues. History and medications reviewed. Epic updated as needed Refills and/or prescriptions taken care of and meds adjusted as indicated after reviewed history, exam and labs. Continue present meds. Health Maintenance reviewed. Updated record and/or ordered tests as recorded. Encouraged on efforts at healthy diet and regular exercise and adequate sleep. Guillaume Dominguez MD documented in this encounter [facility] 02-10-2022 History of Present illness Narrative Patient here for B12 injection and requested flu vaccine as well. Patient tolerated both injections. documented in this encounter [facility] 02-05-2022 Miscellaneous Notes Patient contacted via telephone to schedule injection. Patient re-scheduled for: Feb 17 Hold the following medication(s): - eliquis for 48 hours prior to injection Patient verbalized understanding with no additional questions or concerns at this time. Patient called into the office of Dr. Esequiel Montelongo and would like to reschedule her procedure appointment as soon as possible. Patient can be reached at [phone]. Thank you. Miriam Garcia Pss documented in this encounter [facility] 02-04-2022 Miscellaneous Notes Patient notified Typically we recheck iron and CBC after taking iron supplement for two months. Those results will determine how long she will need to stay on it. I went ahead and ordered the repeat lab tests Arelis Monahan APRN.CNP Patient calls and is asking when does provider want her to get iron labs retested? Patient just recently started on iron pill. Patient has been on them for over a week and she does feel a little bit better. Patient asking how long should she take iron pills? Please review and advise, Tabitha Madrid RN documented in this encounter [facility] 02-04-2022 Miscellaneous Notes Pt called back She is unable to get transportation for tomorrows procedure plus she feels she is getting sick She would like to cancel and reschedule Please advise Received voicemail 9 at 8:14 AM. Good morning this is Shelley Davenport calling. I have an appointment for procedure with Dr. Montelongo tomorrow. I do not know what i'm suppose to have been taking or not taking. I think possibly I'm not supposed to be taking Eliquis. So I didn't take it yesterday and I'm not taking it today in order to be ready for tomorrow but I really don't have any information on what I'm supposed to do so if somebody could call me I'd appreciate it. Birthday is [birth year]. I don't know what time I'm supposed to show up for this procedure so please let me know. Thank you. Miguel A. Call back to patient. Advised that she was correct, Eliquis needs to be held 48 hours prior to procedure. Also advised that she would receive a call between 2:00 & 4:00 PM regarding time for procedure tomorrow. Patient stated she hopes she can get transportation and if she isn't able to she would have to call to cancel. Tabitha Ying RN February 04, 2022 9:45 AM documented in this encounter [facility] 01-29-2022 Miscellaneous Notes Patient scheduled for nurse visit 02/06/22 to receive B-[address]. [address] new administration order at this time. Ning Mckeon LPN documented in this encounter [facility] 01-19-2022 Instructions Comfort Patterson APRN.TIME STUDY CLERK - 01/19/2022 3:15 PM EDT Take one iron pill daily, take with food. Decrease your dose of metoprolol succinate to one half pill daily documented in this encounter [facility] 01-19-2022 History of Present illness Narrative SUBJECTIVE: SHINGRIX VACCINE(2 of 3) due on 11/25/2012 DIABETIC FOOT EXAM due on 09/23/2016 DTAP,TDAP,TD(1 - Tdap) due on 10/10/2016 ADVANCE DIRECTIVE DISCUSSION Never done DILATED RETINAL EXAM due on 07/29/2021 COVID-19 VACCINE(4 - Booster for Pfizer series) due on 08/12/2021 LDL CHOLESTEROL due on 10/10/2021 HPI Miriam Davenport is a 81 year old female. 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 Unspecified Glaucoma(365.9) Class 3 Severe Obesity With Body Mass Index (Bmi) of 40.0 to 44.9 in Adult (Hcc) Calculus of Gallbladder Without Mention of Cholecystitis Or Obstruction Occlusion and Stenosis of Carotid Artery Without Mention of Cerebral Infarction 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 Eating Disorder, Unspecified Pernicious Anemia Anxiety State Circumscribed Scleroderma Unspecified Pruritic Disorder Contact Dermatitis and Other Eczema, Due to Unspecified Cause Osteopenia Other and Unspecified 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, 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, Lumbar Region Lichen Sclerosus Disorders of Bursae and Tendons in Shoulder Region, Unspecified Sprain of Lumbar Region Vitamin D Deficiency Pain in Joint, Shoulder Region Lumbar Strain, Subsequent Encounter Lumbar Spondylosis Lumbar Degenerative Disc Disease Lumbosacral Facet Joint Syndrome Murmur, Cardiac Atypical Chest Pain Type 2 Diabetes Mellitus With Peripheral Neuropathy (Hcc) Retrosternal Chest Pain Neck Pain History of Jordin-En-Y Gastric Bypass Aortic Sclerosis Carotid Artery Stenosis Without Cerebral Infarction, Bilateral Spondylolisthesis of Lumbar Region Si Joint Arthritis Chronic Si Joint Pain Open Compression Fracture of L1 Lumbar Vertebra, With Routine Healing, Subsequent Encounter Spinal Stenosis of Lumbar Region Incisional Hernia, Without Obstruction Or Gangrene Uncomplicated Epigastric Hernia Multiple Subsegmental Pulmonary Emboli Without Acute Cor Pulmonale (Hcc) Pain in Left Hip Trochanteric Bursitis of Left Hip Muscle Weakness HPI excerpted from previous visit: She was seen in [facility] emergency department on August 27, 2020 with chest pain. Symptoms were consistent with prior pulmonary embolus. She noted pain was sharp in duration the night prior to arrival. She took a hydrocodone tablet with slight improvement. Pain became constant around 1 PM later on that day. She presented to the hospital for further evaluation and treatment. Chest x-ray was completed that showed no acute abnormality. Chest CTA completed and showed small subsegmental pulmonary emboli in the right lower lobe posterior. No additional pulmonary emboli noted. Lab work: WBC 9.6 hemoglobin 13.6 hematocrit 41.8 platelets 249 D-dimer 1.16 sodium 137 potassium 3.9 chloride 106 carbon dioxide 26 anion gap 5 BUN 19 creatinine 0.80 estimated creatinine clearance 73 glucose 142 calcium 8.8 troponin less than 0.015 EKG showed sinus rhythm with PACs. She was resumed on oral anticoagulation apixaban loading dose then continuing dose. Presents today noting less chest pain. No reported shortness of breath. No leg swelling. Notes completing daily activities in her home without difficulty. Steady on her feet. No falls. No bleeding difficulties noted. Presents today with report of extreme fatigue, bruising and difficulty completing daily activities Present for about one month. Has seen Dr Alegre. PACS noted on [employer]. Recommended trial of metoprolol succinate 25 mg. Eating drinking normally: says yes Fluid intake /day: states drinking enouygh Protein: states getting at each meal History of pernicious anemia Taking iron or MVI with iron - notes taking vitamin + UTI 01/16/2022. Treating cipro x 1 day Notes having to take care of . ADLS:yes able to complete IADLS: notes grand daughter lives with her and is helping with ore buyer. History of ASIM, not treating alancollette notes can not tolerate a mask on her face STOP BANG Questionnaire 1. Snoring Do you snore loudly (louder than talking or loud enough to be heard through closed doors)? NO 2. Tired Do you often feel tired, fatigued, or sleepy during daytime? YES 3. Observed Has anyone observed you stop breathing during your sleep? NO 4. Blood Pressure Do you have or are you being treated for high blood pressure? YES 5. BMI BMI more than 35 kg/m2? YES 6. Age Age over 50 yr old? YES 7. Neck circumference Neck circumference greater than 40 cm? YES 8. Gender Gender male? NO * Neck circumference is measured by staff High risk of ASIM: answering yes to three or more items Low risk of ASIM: answering yes to less than three items Review of Systems Constitutional: Negative. Respiratory: Negative. Cardiovascular: Positive for chest pain. Objective BP 112/64 Pulse 72 Temp 37.1 C (98.7 F) (Temporal) Resp 24 Wt 112.5 kg (248 lb) SpO2 97% BMI 40.03 kg/m Physical Exam Vitals and nursing note reviewed. Constitutional: General: She is not in acute distress. Appearance: Normal appearance. She is obese. She is not ill-appearing, toxic-appearing or diaphoretic. HENT: Head: Normocephalic and atraumatic. Eyes: Conjunctiva/sclera: Conjunctivae normal. Neck: Thyroid: No thyromegaly or thyroid tenderness. Vascular: No carotid bruit. Cardiovascular: Rate and Rhythm: Normal rate. Rhythm irregular. Pulses: Carotid pulses are 2+ on the right side and 2+ on the left side. Radial pulses are 2+ on the right side and 2+ on the left side. Heart sounds: Normal heart sounds. Pulmonary: Effort: Pulmonary effort is normal. Breath sounds: Normal breath sounds. Abdominal: General: Bowel sounds are normal. Palpations: Abdomen is soft. Musculoskeletal: Right lower leg: No edema. Left lower leg: No edema. Skin: General: Skin is warm and dry. Neurological: Mental Status: She is alert. Mental status is at baseline. Psychiatric: Mood and Affect: Mood normal. Behavior: Behavior normal. ALLERGIES Allergen Reactions Asa [Salicylates] Anaphylaxis Avapro [Irbesartan] Swelling Byetta [Exenatide] Can not remember what effect but not suppose to take it Crestor [Rosuvastat* Duoderm [Other] Rash Eggs [Egg] Diarrhea Not true allergy Erythromycin Myalgia Etodolac Contraindication-Medical Surgical Was told never to take NSAID due to bypass surgery. She also developed severe pain after taking Etodolac that was excruciating Lipitor [Atorvastat* Niacin Unknown Niaspan [Niacin (An* Nsaids (Non-Steroid* Was told to avoid all NSAID's due to bypass surgery Ointments [Other] Can use lotions/creams, but ointments cause itchy/burning and painful rash. Penicillins Rash Pravachol [Pravasta* Sulfa (Sulfonamide * Rash Tape [Other] Zetia [Ezetimibe] Zocor [Simvastatin] Metformin GI Upset diarrhea Medications fluconazole (DIFLUCAN) 200 mg tablet^TAKE 1 TABLET 3x per week^Disp: 32 tablet^Rfl: 3 clobetasol (TEMOVATE) 0.05 % cream^3x per day for 2 weeks and then twice daily thereafter^Disp: 60 g^Rfl: 4 ciprofloxacin HCl (CIPRO) 250 mg tablet^Take 1 tablet by mouth twice daily for 5 days.^Disp: 10 tablet^Rfl: 0 chlorhexidine (HIBICLENS) 4 % external liquid^Wash genitale area once a day for infectious vulvitis^Disp: 473 mL^Rfl: 11 metoprolol succinate ER (TOPROL XL) 25 mg 24 hr tablet^Take 1 tablet by mouth once daily.^Disp: 90 tablet^Rfl: 3 oxybutynin ER (DITROPAN XL) 10 mg 24 hr tablet^Take 1 tablet by mouth once daily as needed. OVERACTIVE BLADDER^Disp: 90 tablet^Rfl: 1 apixaban (ELIQUIS) 5 mg tab(s)^Take 1 tablet by mouth twice daily.^Disp: 60 tablet^Rfl: 11 glimepiride (AMARYL) 1 mg tablet^Take 2 tablets by mouth daily with breakfast.^Disp: 60 tablet^Rfl: 11 gabapentin (NEURONTIN) 300 mg capsule^one in morning, two at bedtime^Disp: 90 capsule^Rfl: 11 Blood Sugar Diagnostic, Drum (ACCU-CHEK COMPACT PLUS TEST) strip^use to check sugars twice a day^Disp: 51 Strip^Rfl: 11 metFORMIN ER (GLUCOPHAGE XR) 500 mg 24 hr tablet^Take 4 tablets by mouth daily with breakfast.^Disp: 360 tablet^Rfl: 3 glimepiride (AMARYL) 4 mg tablet^Take 2 tablets by mouth daily with breakfast.^Disp: 180 tablet^Rfl: 3 (Patient taking differently: Take 4 mg by mouth daily with breakfast. ) blood sugar diagnostic (ACCU-CHEK POLY PLUS TEST STRP) test strip^Check sugars 3 times daily^Disp: 100 Each^Rfl: 11 calcitriol (ROCALTROL) 0.5 mcg capsule^Take 1 capsule by mouth once daily.^Disp: 90 capsule^Rfl: 4 diphenhydramine HCl (BENADRYL ORAL)^Take by mouth daily at bedtime.^Disp: ^Rfl: apixaban (ELIQUIS) 5 mg tab(s)^Take by mouth. ^Disp: ^Rfl: HYDROcodone-Acetaminophen (NORCO) 7.5-325 mg per tablet^Take 1 tablet by mouth every 6 hours as needed for Pain for up to 7 days.^Disp: 28 tablet^Rfl: 0 (Patient not taking: Reported on 11/03/2021) cholecalciferol, vitamin D3, (VITAMIN D3 ORAL)^Take by mouth once daily.^Disp: ^Rfl: lidocaine (XYLOCAINE) 2 % jelly^FOR EXTERNAL USE ONLY.APPLY TO: vulva three times daily as needed^Disp: 30 mL^Rfl: 3 (Patient not taking: Reported on 11/03/2021 ) sertraline (ZOLOFT) 25 mg tablet^Take 1 tablet by mouth once daily.^Disp: 30 tablet^Rfl: 2 (Patient not taking: Reported on 11/03/2021 ) Blood-Glucose Meter, Drum-type (ACCU-CHEK COMPACT PLUS CARE) kit^USE DIRECTED.^Disp: 1 Kit^Rfl: 0 acetaminophen (TYLENOL EXTRA STRENGTH) 500 mg tablet^Take 500 mg by mouth daily at bedtime.^Disp: ^Rfl: COMPOUNDED PRESCRIPTION^ONE TOUCH ULTRA 2 TEST STRIPS TESTING 2 TIMES DAILY INSULIN NO DX E11.65^Disp: 100 Strip^Rfl: 12 CALCIUM CITRATE/VITAMIN D3 (CALCIUM CITRATE + D ORAL)^Take 1 capsule by mouth three times daily. ^Disp: ^Rfl: BIOTIN 2,500 MCG TAB^Take 2,500 mcg by mouth once daily. ^Disp: ^Rfl: 0 ascorbic acid(VITAMIN C 500 MG TAB)^Take 500 mg by mouth once daily. ^Disp: 0^Rfl: 0 pnv/iron,carb/om-3/fa/fat 1(PRE-JIMY MULTIVITAMINS WITH MINERALS 27 MG-1 MG-300 MG CAP)^Take 1 capsule by mouth once daily. 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 Contact dermatitis and other eczema, due to unspecified cause Lichen 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 per [facility] outside facility Apr 1997 MORBID OBESITY 08/18/2007 Obstructive sleep apnea Sleep study 2003 Occlusion and stenosis of carotid artery without mention of cerebral infarction 03/09/06 mild stenosis shown on u/s at [facility] u/s repeated 02/02/07 with no change Pure hypercholesterolemia Type II or unspecified type diabetes mellitus with renal manifestations, uncontrolled(250.42) Unspecified glaucoma(365.9) Unspecified pruritic disorder Social History Tobacco Use Smoking status: Never Smokeless tobacco: Never Vaping Use Vaping Use: Never used Substance Use Topics Alcohol use: No Drug use: No Component Latest Ref Rng & Units 01/16/2022 Protein, Total 6.3 - 8.0 g/dL 6.4 Albumin 3.9 - 4.9 g/dL 3.5 (L) Calcium 8.5 - 10.2 mg/dL 8.8 Bilirubin, Total 0.2 - 1.3 mg/dL 0.2 Alkaline Phosphatase 34 - 123 U/L 100 AST 13 - 35 U/L 12 (L) ALT 7 - 38 U/L 13 Glucose 74 - 99 mg/dL 137 (H) BUN 7 - 21 mg/dL 16 Creatinine 0.58 - 0.96 mg/dL 0.62 Sodium 136 - 144 mmol/L 136 Potassium 3.7 - 5.1 mmol/L 4.2 Chloride 97 - 105 mmol/L 104 CO2 22 - 30 mmol/L 21 (L) Anion Gap 9 - 18 mmol/L 11 eGFR >=60 mL/min/1.73m 91 WBC 3.70 - 11.00 k/uL 10.07 RBC 3.90 - 5.20 m/uL 4.17 Hemoglobin 11.5 - 15.5 g/dL 12.5 Hematocrit 36.0 - 46.0 % 38.8 MCV 80.0 - 100.0 fL 93.0 MCH 26.0 - 34.0 pg 30.0 MCHC 30.5 - 36.0 g/dL 32.2 RDW-CV 11.5 - 15.0 % 14.2 Platelet Count 150 - 400 k/uL 258 MPV 9.0 - 12.7 fL 10.9 Absolute nRBC <0.01 k/uL <0.01 Creatinine, Ur Random (UCRR) 20.0 - 300.0 mg/dL 116.2 Albumin, Urine Random mg/L 187.5 Albumin/Creat Ratio <30 mg/g 161 (H) Iron 41 - 186 ug/dL 31 (L) TIBC 232 - 386 ug/dL 310 Transferrin Saturation 15.0 - 57.0 % 10.0 (L) Hemoglobin A1C 4.3 - 5.6 % 7.3 (H) Estimated Average Glucose mg/dL 163 Ferritin 14.7 - 205.1 ng/mL 347.0 (H) Culture >=100,000 CFU/ml Klebsiella pneumoniae (A) Component Latest Ref Rng & Units 09/26/2021 10/09/2021 01/16/2022 Iron 41 - 186 ug/dL 28 (L) 31 (L) TIBC 232 - 386 ug/dL 330 310 Transferrin Saturation 15.0 - 57.0 % 8 (L) 10.0 (L) Vitamin B12 232-1,245 pg/mL 645 Ferritin 14.7 - 205.1 ng/mL 311.0 (H) 304.0 (H) 347.0 (H) Folate >4.7 ng/mL >20.0 Creatinine Date Value Ref Range Status 01/16/2022 0.62 0.58 - 0.96 mg/dL Final 10/09/2021 0.60 0.58 - 0.96 mg/dL Final 10/03/2021 0.70 0.58 - 0.96 mg/dL Final 02/12/2021 0.57 (L) 0.58 - 0.96 mg/dL Final ASSESSMENT/PLAN: 1. Fatigue, unspecified type - ICD9: 780.79, ICD10: R53.83 (primary diagnosis) She has pervasive fatigue for about 1 month. Suspect this is multifactorial however she was started on metoprolol succinate about 1 month ago for PACs per Dr. Alegre. Systolic BP has dropped approximately 20 mmHg since last here. Will reduce to metoprolol succinate to 12.5 mg daily to see if any improvement in her symptom of fatigue. H&H within normal limits however iron stores are low. Recommend iron daily for 1 month. She meets criteria for ASIM, defers testing at this time. States she would not be able to wear a mask if it was ordered. Discussed there are other options. She has UTI, has been treated for 1 day. - TSH BLD 2. Iron deficiency - ICD9: 280.9, ICD10: E61.1 - FERROUS SULFATE 325 MG (65 MG IRON) TABLET Reviewed apixaban dosing with pharmD; no change in dosing 5mg BID indefinitely Comfort Patterson APRN.TIME STUDY CLERK Medical Decision Making: Problems: Moderate: 1+ chronic illnesses with change Data: Unique test(s) ordered: 1 Risk: Moderate: Drug management Medical Decision Making Level: 4 - Moderate documented in this encounter [facility] 01-05-2022 History of Present illness Narrative Patient presents for B-12 injection. Denies any problems at this time. Patient instructed on any SE of medication, verbalized understanding and agreed to proceed with treatment. Tolerated injection well. Ning Mckeon LPN documented in this encounter [facility] 12-17-2021 Instructions Sasha Hurley APRN.HIMA - 12/17/2021 2:27 PM EDT keflex for 7 days Tylenol/ibuprofen as needed for discomfort AZO otc Increase hydration -Follow up with PCP or return to clinic if symptoms not improving in 3 days or if you develop any new (or worsening) symptoms such as fever, chills or back pain go to ER. documented in this encounter [facility] 12-17-2021 History of Present illness Narrative Subjective The history is provided by the patient. No kids club attendant was used. JUDIT Davenport is a 81 year old female who presents today for CC of frequency of urination Positive for Dysuria and Increase in frequency of urination, Negative for Urgency, Sense of incomplete void, Fevers, Vomiting, Diarrhea, Abdominal pain , Back/Flank pain, Blood in urine and Vaginal itch or discharge Chance of : No Last intercourse: n/a Any self-treatment attempted: No Number of previous UTI's in last 6 months:0 Number of previous UTI's in last 12 months: 1 Aggravating Factors: voiding Alleviating Factors include Increasing fluids with minimal relief in symptoms. 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 Contact dermatitis and other eczema, due to unspecified cause Lichen 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 per [facility] outside facility Apr 1997 MORBID OBESITY 08/18/2007 Obstructive sleep apnea Sleep study 2002 Occlusion and stenosis of carotid artery without mention of cerebral infarction 03/09/06 mild stenosis shown on u/s at [facility] u/s repeated 02/02/07 with no change Pure hypercholesterolemia Type II or unspecified type diabetes mellitus with renal manifestations, uncontrolled(250.42) Unspecified glaucoma(365.9) Unspecified pruritic disorder I have confirmed and edited as necessary, the [facility] Review of Systems Constitutional: Negative for chills and fever. Gastrointestinal: Negative for abdominal pain. Genitourinary: Positive for frequency. Negative for dysuria, flank pain, hematuria and urgency. Objective Physical Exam Vitals and nursing note reviewed. Constitutional: Appearance: Normal appearance. Abdominal: General: Bowel sounds are normal. There is no abdominal bruit. Palpations: Abdomen is not rigid. There is no mass or pulsatile mass. Tenderness: There is no abdominal tenderness. There is no guarding or rebound. Negative signs include Odonnell's sign and McBurney's sign. Neurological: Mental Status: She is alert and oriented to person, place, and time. Psychiatric: Mood and Affect: Affect normal. Component Latest Ref Rng & Units 12/17/2021 GLUCOSE UA (POCT) Negative mg/dL >=1000 (A) BILIRUBIN UA (POCT) Negative Negative KETONE UA (POCT) Negative mg/dL Trace SPECIFIC GRAVITY UA (POCT) 1.005 - 1.030 1.025 HEMOGLOBIN/BLOOD UA (POCT) Negative Large (A) PH UA (POCT) 4.5 - 8.0 5.0 PROTEIN UA (POCT) Negative mg/dL 100 (A) UROBILINOGEN UA (POCT) Normal E.U./dL 0.2 NITRITE UA (POCT) Negative Positive (A) LEUKOCYTES UA (POCT) Negative Small (A) COLOR UA (POCT) Dark yellow CLARITY UA (POCT) Cloudy ASSESSMENT/PLAN: 1. Acute UTI - ICD9: 599.0, ICD10: N39.0 (primary diagnosis) acute - UA positive for kristyn esterase, hematuria and nitrates - Send urine for culture - Begin treatment with keflex for 7 days - Patient education for prevention given 2. Urinary frequency - ICD9: 788.41, ICD10: R35.0 - UA DIP, URINE (POC) - URINE CULTURE 3. Glucosuria - ICD9: 791.5, ICD10: R81 POC - Glucose 248 Patient forgot to take medications today, and ate pie for lunch, advise to monitor BS, stricter control on diet, reminder for medications - GLUCOSE, BLOOD (POC) Diagnosis and treatment plan were discussed and questions were answered to the patient's satisfaction. Pt acknowledged understanding of concepts and follow up plan. Specific signs and symptoms that would indicate the need for higher level of care were discussed in detail warranting prompt ER evaluation. Sasha Hurley APRN.HIMA Medical Decision Making: Problems: Moderate: Acute illness with systemic symptoms Risk: Moderate: Drug management Medical Decision Making Level: 4 - Moderate documented in this encounter [facility] 12-15-2021 Miscellaneous Notes Patient notified of providers message and verbalized understanding. Recommend urgent care; would be quickestp Pt calls and states the following: URINARY SYMPTOMS SYMPTOMS: frequency, urine cloudy, urgency and dribbling. ONSET: started 12-10-21, going on for 6 days PAIN: no pain CAUSE: unknown OTHER SYMPTOMS: none Denies: burning, fever, flank pain, blood in urine. Pt states she is leaving for vacation soon and wants to make sure if UTI would like to have this cleared up. Pt willing to come in for urine sample. If she has to come into the office would willing. Please advise pt. Marquita Mclaughlin LPN documented in this encounter [facility] 12-04-2021 Miscellaneous Notes Patient returning call from Isabel, is requesting a call back at [phone]. Patient states she will not be home tomorrow morning to answer the phone but will be home the rest of today. Please advise, thanks Called patient, answered d/t patient unavailable. Will relay message to call back. Based on the frequent PACs on Zio - would favor a trial of Toprol XL 25 mg daily. Can you see if she is ok with this. If starts - she can mychart us with an update 2 weeks after starting. thanks bb Isabel Orlando RN documented in this encounter [facility] 11-03-2021 History of Present illness Narrative Patient presents for B-12 injection. Denies any problems at this time. Patient instructed on any SE of medication, verbalized understanding and agreed to proceed with treatment. Tolerated injection well. Ning Mckeon LPN documented in this encounter [facility] 11-03-2021 Nurse Note EVENT MONITOR DISPOSABLE PATCH INSTRUCTIONS Patient Name: Miriam [facility] Number: [id number] Skin prepped and cleansed with alcohol Patch secured to prepped area Monitor Activated Serial #: [id number] Patient Instructed: 1.) Prescribed order timeframe 2.) Bathing guidelines 3.) Usage of event button and diary documentation 4.) Return of monitor at the end of prescribed order 5.) Call with problems [phone] or [phone]. [phone] Patient expresses a good understanding of instructions Gifty Singh documented in this encounter [facility] 11-03-2021 History of Present illness Narrative Images from the original note were not included. EP STAFF NOTE: Please note: This note has been produced using speech recognition software and may contain errors related to that system including grammar, punctuation, spelling, gender and words and phrases that may be inappropriate Consultation requested by Comfort Patterson for an opinion regarding management of PACs and my final recommendations will be communicated back to the requesting physician by way of shared medical record OR letter via fax/US mail. I have reviewed the above information and examined the patient and confirm the above with the following additions/modifications. ECG: PE: Vitals: BP 124/86 Pulse 81 Ht 167.6 cm (5' 6 ) Wt 113.6 kg (250 lb 8 oz) SpO2 98% BMI 40.43 kg/m General: overweight, In no acute distress. Skin: No clubbing. No cyanosis. Eyes: EOMI Oropharynx: No oral lesions. Neck: no JVD. Lungs: Unlabored Heart: RRR with frequent ectopy Abdomen: nontender Extremities: No peripheral edema bilaterally. Neuro: Oriented x3, alert, cooperative, gait coordinated. From PCP encounter: BP w/Orthostatic Vitals Date and Time Orthostatic BP Orthostatic Pulse BP Pulse BP Position BP Site BP Cuff Size 10/03/21 1658 107/75 95 -- -- Standing -- -- 10/03/21 1657 110/69 52 -- -- Sitting -- -- 10/03/21 1656 119/75 75 -- -- Supine -- -- 10/03/21 1432 -- -- 126/68 60 -- -- -- PROBLEM LIST: PACs TSH WNL PE 2019 - on Eliquis: iron def by labs . Hct WNL. Recent fall : episode of lightheadedness around 3am today and fell while going to sit on the toilet. Landed retirement on the toilet and scraped her left arm on windowsill. Did not hit her head or LOC. Was able to get up on her own power. Had bleeding from the left forearm which took several hours for the bleeding to slow down due to her anticoagulation. FIELD TTE : - Exam indication: Shortness of Breath - The left ventricle is small. There is mild concentric left ventricular hypertrophy. Left ventricular systolic function is normal. EF = 61 5% (2D 4-ch.) Grade I left ventricular diastolic dysfunction. - The right ventricle is normal in size. Right ventricular systolic function is normal. - Definity unavailable. - Exam was compared with the prior echocardiographic exam performed on 08/08/2014 (Stress). stress TTE 2015: Exercise Test Summary: Pre: HR BP Comment STEVENS: 64 130/82 ST: 67 132/68 Stress: S1: 101 158 88 S2: 127 186 100 Recovery: R1: 103 180 84 R2: 88 178 82 R3: 78 158 76 The patient was stressed according to the MARCIA protocol for 5:31 minutes, achieving a work level of 7 METS.The resting heart rate of 65 bpm any to a maximal heart rate of 134 bpm. This value represents 90% of the maximal, age-predicted heart rate. The resting blood pressure of 132/68 mmHg, any to a maximum blood pressure of 186/100 mmHg. The exercise test was stopped due to fatigue, leg discomfort, syncope, dyspnea and target heart rate achieved. Interpretation: Summary: Resting ECG: SR normal. Functional Capacity: moderately decreased. HR Response to exercise: appropriate. BP Response to exercise: normal resting BP - appropriate response. Chest pain: none. Arrhythmias: Rare PVC. ST Changes: none significant. Conclusions: Normal near maximal treadmill stress ecg. Clinically negative for ischemia. Normal HR recovery. O2 sat 98% Echo images obtained, see separate report. IMPRESSION: 81 y/o referred to the EP clinic at [place] for frequent PACs. Patient presents with no complaints. There is a report of significant FIELD - however the patient attributes this to her weight and lack of conditioning. She is unaware of the SVE. Review of her EKGs available in [employer] suggests frequent SVE developed around 2019 - ? temporal relationship to her PE event. Recent TTE shown no advanced structural heart disease. TSH WNL. It is not clear to me that the SVE is playing a role in her FIELD and her recent near syncopal event. She is known to have orthostatic hypotension. Rec Zio monitor to further assess burden of SVE and r/o sustained arrhythmias. PLAN: 1. Zio monitor for 2 weeks - pt to call [facility] main for results. Consider BB therapy (+/- Flec) if suppression SVE is warranted. This note was created with electronic dictation and errors in syntax and meaning may have occurred. Gamaliel Alegre MD Pager: [phone] Office: [phone] I personally examined the patient and repeated the [place] components of the exam and cardiac history, past medical and surgical history, social and family history. The assessment and plan were formulated and discussed with the patient and family. I spent over 25 minutes (face time) and greater than 50% of this time was spent counseling and/or coordinating the care of the patient with regard the diagnosis and medical regimen Referring Physician: Guillaume Dominguez [address] [place] [address] Comfort Patterson [address] [facility] [id number] documented in this encounter [facility] 10-22-2021 Miscellaneous Notes Okayed MALGORZATA: 10/03/2021 Brittany NOV: 04/27/2022 Analia Last refill: 06/12/2021 QTY: 36 Refills: 3 Patient has been identified by name and date of : Yes Pending Prescriptions Disp Refills FLUCONAZOLE 200 MG TABLET 36 tablet 3 Sig: Take 2 tablets by mouth every 72 hours. Two (2) X 200 mg tablets = 400 mg 2-3 times a week LISSA: No RX INSTRUCTIONS: Patient aware RX will be sent to pharmacy. No need to notify patient. Marline Milton documented in this encounter [facility] 10-22-2021 Miscellaneous Notes Okayed MALGORZATA: 10/03/2021 Brittany NOV: 04/27/2022 Analia Last refill: 03/31/2021 QTY: 90 Refills: 1 Patient's request for medication is as follows: Pending Prescriptions Disp Refills OXYBUTYNIN CHLORIDE ER 10 MG TABLET,EXTENDED RELEASE 24 HR 90 tablet 1 Sig: Take 1 tablet by mouth once daily as needed. OVERACTIVE BLADDER LISSA: No Please approve the above prescription(s) to electronically send to pharmacy. Logan Boothe Ma Patient has been identified by name and date of : Yes Pending Prescriptions Disp Refills OXYBUTYNIN CHLORIDE ER 10 MG TABLET,EXTENDED RELEASE 24 HR 90 tablet 1 Sig: Take 1 tablet by mouth once daily as needed. OVERACTIVE BLADDER LISSA: No RX INSTRUCTIONS: Patient aware RX will be sent to pharmacy. No need to notify patient. Liz Byrd documented in this encounter [facility] 10-08-2021 Miscellaneous Notes Echo scheduled for 10/13/21. Cardio appt 11/03/21. Kandy Brady Ma Patient returned call and went over notes from Dr Soto and Comfort Patterson HUNTING AND FISHING GUIDE with understanding. Patient wrote down instructions, she had already stopped the iron some time ago. Assisted with transfer to scheduler conveyor to get Cardiology consult and ECHO set up. Patient notified of results, please assist with scheduling echo, Dr Hilario appointment (ok to use walk in or same day spot), and lab appointment in 1 month PCP recommends cardiac work up as well. Stop taking any supplemental iron if taking OTC. Other labs in acceptable range. Recheck ferritin and CBC, CMP 1 mo. Orders in. Schedule echocardiogram. Schedule sooner appt with Guillaume Dominguez MD. These tests were ordered by PCP, will forward for her to review and discuss with patient. Spoke with pt and information listed below given. Pt verbalizes understanding. Question: Pt asking what she needs to do regarding the low iron studies done on 09-26-21. Pt asking if she needs to be on iron. Please advise. Marquita Mclaughlin LPN Unable to reach patient. Left VM to return call to office. Please read below all 3 results and advise. Isabel Petersen MA Thyroid studies normal. Kidney and liver function normal. Other labs normal aside from glucose in the 120's. Nothing on her labs to explain her fatigue. We discussed cardiac workup at her OV on Wednesday, but patient refused. Continue current medication regimen, push PO fluids and follow up with PCP if symptoms persist. Dr. Soto please review remaining labs. Isabel Petersen MA ----- Message from Iban Soto MD sent at 10/06/2021 8:10 AM EDT ----- Normal chest xray. Negative for signs of infection. No obvious cause for SOB. ----- Message from Iban Soto MD sent at 10/03/2021 5:09 PM EDT ----- Negative for anemia. Other labs still pending. documented in this encounter [facility] 10-07-2021 Miscellaneous Notes Called and spoke with patient. Scheduled with Dr Montelongo on 10/24/21. Patient left voicemail stating she is experiencing severe pain with her back and hip. Patient states it is hard for her to function. Patient has not been seen in office since 09/16/2020 Recommend follow up with provider documented in this encounter [facility] 10-06-2021 Miscellaneous Notes seen by Dr Soto 10/03 Added a result note. Awaiting CBC before decide what needs done since ferritin level went up but iron and transferrin are down. Pt calls to report she saw the results of labs on . Pt saw that her iron is low. Pt wants to know if she should start an iron supplement. There are three labs that are still in process at this point. Notified pt of that. Pt reports she is really worried because she is so tired all the time. Please review and advise. Ellie Downing LPN documented in this encounter [facility] 10-03-2021 History of Present illness Narrative Chief Complaint Patient presents with: Fatigue HPI Miriam Davenport is a 81 year old female who presents here today for Above Complaints. Patient states that she has had fatigue for months which has worsened in the last week. Has not had any change in diet or medications since symptoms worsened. Has been on nutrisystem diet for several months. Admits to SOB on exertion, diarrhea, nausea, lightheadedness when standing up at night. Denies chest pain, palpitations, vomiting, bruising/bleeding, urinary symptoms, abdominal pain, slurred speech, vision changes, slurred speech. Patient had an episode of lightheadedness around 3am today and fell while going to sit on the toilet. Landed retirement on the toilet and scraped her left arm on windowsill. Did not hit her head or LOC. Was able to get up on her own power. Had bleeding from the left forearm which took several hours for the bleeding to slow down due to her anticoagulation. Asking repeatedly what she needs to do to bring her iron level back up. On multivitamin containing iron. Aside from scraping her arm today, denies other bleeding/bruising symptoms. Past medical history, appointments, medications, allergies reviewed. 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 Contact dermatitis and other eczema, due to unspecified cause Lichen 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 per [facility] outside facility Apr 1997 MORBID OBESITY 08/18/2007 Obstructive sleep apnea Sleep study 2003 Occlusion and stenosis of carotid artery without mention of cerebral infarction 03/09/06 mild stenosis shown on u/s at [facility] u/s repeated 02/02/07 with no change Pure hypercholesterolemia Type II or unspecified type diabetes mellitus with renal manifestations, uncontrolled(250.42) Unspecified glaucoma(365.9) Unspecified pruritic disorder Previous Surgical History PAST SURGICAL HISTORY Procedure Laterality Date EGD TRANSORAL BIOPSY SINGLE/MULTIPLE 05-14-15 GASTRIC 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/14/2007 INCISION & DRAINAGE ABSCESS SIMPLE/SINGLE 2009 ABD WALL and intestine removed LAPS COLECTOMY PRTL W/RMVL TERMINAL ILEUM 02/20/09 polyps LIG/TRNSXJ FLP TUBE ABDL/VAG APPR UNI/BI Tubal ligation NSL/SINUS NDSC SPHENDT RMVL TISS SPHENOID SINUS PAST SURGICAL HISTORY OF 02/2008 Left total knee PAST SURGICAL HISTORY OF 04/2008 Right total knee Family History FAMILY HISTORY Problem Relation Age of Onset Breast Cancer Mother cva Stroke Mother Heart Father AAA Colon Cancer Father other (leukemia) Brother Patient Allergies ALLERGIES Allergen Reactions Asa [Salicylates] Anaphylaxis Avapro [Irbesartan] Swelling Byetta [Exenatide] Can not remember what effect but not suppose to take it Crestor [Rosuvastat* Duoderm [Other] Rash Eggs [Egg] Diarrhea Not true allergy Erythromycin Myalgia Etodolac Contraindication-Medical Surgical Was told never to take NSAID due to bypass surgery. She also developed severe pain after taking Etodolac that was excruciating Lipitor [Atorvastat* Niacin Unknown Niaspan [Niacin (An* Nsaids (Non-Steroid* Was told to avoid all NSAID's due to bypass surgery Ointments [Other] Can use lotions/creams, but ointments cause itchy/burning and painful rash. Penicillins Rash Pravachol [Pravasta* Sulfa (Sulfonamide * Rash Tape [Other] Zetia [Ezetimibe] Zocor [Simvastatin] Metformin GI Upset diarrhea Current Medications Current Outpatient Medications on File Prior to Visit Medication Sig glimepiride (AMARYL) 1 mg tablet Take 2 tablets by mouth daily with breakfast. gabapentin (NEURONTIN) 300 mg capsule one in morning, two at bedtime chlorhexidine (HIBICLENS) 4 % external liquid Wash genitale area once a day for infectious vulvitis Blood Sugar Diagnostic, Drum (ACCU-CHEK COMPACT PLUS TEST) strip use to check sugars twice a day metFORMIN ER (GLUCOPHAGE XR) 500 mg 24 hr tablet Take 4 tablets by mouth daily with breakfast. oxybutynin ER (DITROPAN XL) 10 mg 24 hr tablet Take 1 tablet by mouth once daily as needed. OVERACTIVE BLADDER glimepiride (AMARYL) 4 mg tablet Take 2 tablets by mouth daily with breakfast. (Patient taking differently: Take 4 mg by mouth daily with breakfast. ) fluconazole (DIFLUCAN) 200 mg tablet TAKE 1 TABLET BY MOUTH EVERY 3 TO 4 DAYS FOR 2 MONTHS blood sugar diagnostic (ACCU-CHEK POLY PLUS TEST STRP) test strip Check sugars 3 times daily calcitriol (ROCALTROL) 0.5 mcg capsule Take 1 capsule by mouth once daily. diphenhydramine HCl (BENADRYL ORAL) Take by mouth daily at bedtime. apixaban (ELIQUIS) 5 mg tab(s) Take by mouth. cholecalciferol, vitamin D3, (VITAMIN D3 ORAL) Take by mouth once daily. Blood-Glucose Meter, Drum-type (ACCU-CHEK COMPACT PLUS CARE) kit USE DIRECTED. acetaminophen (TYLENOL EXTRA STRENGTH) 500 mg tablet Take 500 mg by mouth daily at bedtime. COMPOUNDED PRESCRIPTION ONE TOUCH ULTRA 2 TEST STRIPS TESTING 2 TIMES DAILY INSULIN NO DX E11.65 CALCIUM CITRATE/VITAMIN D3 (CALCIUM CITRATE + D ORAL) Take 1 capsule by mouth three times daily. BIOTIN 2,500 MCG TAB Take 2,500 mcg by mouth once daily. ascorbic acid(VITAMIN C 500 MG TAB) Take 500 mg by mouth once daily. pnv/iron,carb/om-3/fa/fat 1(PRE- MULTIVITAMINS WITH MINERALS 27 MG-1 MG-300 MG CAP) Take 1 capsule by mouth once daily. apixaban (ELIQUIS) 5 mg tab(s) Take 1 tablet by mouth twice daily. fluconazole (DIFLUCAN) 200 mg tablet Take 2 tablets by mouth every 72 hours. Two (2) X 200 mg tablets = 400 mg 2-3 times a week clobetasol (TEMOVATE) 0.05 % cream Apply thin layer to affected area twice daily for 6-12 weeks (Patient not taking: Reported on 10/03/2021 ) clobetasol (TEMOVATE) 0.05 % cream Apply thin layer to affected area twice daily for 6-12 weeks (Patient not taking: Reported on 10/03/2021 ) HYDROcodone-Acetaminophen (NORCO) 7.5-325 mg per tablet Take 1 tablet by mouth every 6 hours as needed for Pain for up to 7 days. lidocaine (XYLOCAINE) 2 % jelly FOR EXTERNAL USE ONLY.APPLY TO: vulva three times daily as needed (Patient not taking: Reported on 10/03/2021 ) sertraline (ZOLOFT) 25 mg tablet Take 1 tablet by mouth once daily. (Patient not taking: Reported on 10/03/2021 ) Current Facility-Administered Medications on File Prior to Visit Medication cyanocobalamin 1,000 mcg injection Social History Social History Tobacco Use Smoking status: Never Smoker Smokeless tobacco: Never Used Vaping Use Vaping Use: Never used Substance Use Topics Alcohol use: No Drug use: No Review of Symptoms REVIEW OF SYSTEMS GENERAL: No weight loss, malaise or fevers RESPIRATORY: Negative for cough, hemoptysis, wheezing, COPD, dyspnea or shortness of breath CARDIOVASCULAR: Negative for chest pain, leg swelling, hypertension, CHF or palpitations GI: See HPI SKIN: See HPI EXAM: BP 126/68 Pulse 60 Resp 20 Wt 112.9 kg (249 lb) SpO2 96% BMI 40.19 kg/m BP w/Orthostatic Vitals Date and Time Orthostatic BP Orthostatic Pulse BP Pulse BP Position BP Site BP Cuff Size 10/03/21 1658 107/75 95 -- -- Standing -- -- 10/03/21 1657 110/69 52 -- -- Sitting -- -- 10/03/21 1656 119/75 75 -- -- Supine -- -- 10/03/21 1432 -- -- 126/68 60 -- -- -- Peak Flow Date and Time PF Resp 10/03/21 143 -- 20 General Appearance: Well appearing, alert, in no acute distress, well-hydrated, well nourished. Skin: 8 cm shallow skin tear on left forearm without active bleeding or surrounding infection. Lungs: Lungs clear to auscultation. No wheezing, rhonchi, rales. SOB with moving from chair to exam table. Heart: Negative findings: no murmurs, clicks, or gallops, Positive findings: irregular rhythm. Abdomen: Normal abdominal exam, Abdomen soft, non-tender. Bowel sounds normal. No masses, organomegaly. Extremities: No deformities, edema, skin discoloration, clubbing or cyanosis. Good capillary refill. . Health Maintenance List SHINGRIX VACCINE(2 of 3) due on 11/25/2012 DIABETIC FOOT EXAM due on 09/23/2016 DTAP,TDAP,TD(1 - Tdap) due on 10/10/2016 ADVANCE DIRECTIVE DISCUSSION Never done DILATED RETINAL EXAM due on 07/29/2021 LDL CHOLESTEROL due on 10/10/2021 DEPRESSION SCREENING due on 02/10/2022 HBA1C due on 02/21/2022 URINE ALBUMIN:CREATININE RATIO due on 08/21/2022 ANNUAL PCP TEAM CHRONIC DISEASE VISIT due on 08/25/2022 BONE DENSITY Completed INFLUENZA Completed PNEUMOVAX AGE 65 AND OVER WITH 5YR LOOKBACK Completed COVID-19 VACCINE Completed MENINGOCOCCAL CONJUGATE Aged Out Data reviewed Component Latest Ref Rng & Units 09/26/2021 Iron 41 - 186 ug/dL 28 (L) TIBC 232 - 386 ug/dL 330 Transferrin Saturation 15 - 57 % 8 (L) Vitamin D 25 Hydroxy 31.0 - 80.0 ng/mL 35.7 Vitamin B12 232-1,245 pg/mL 645 Ferritin 14.7 - 205.1 ng/mL 311.0 (H) Folate >4.7 ng/mL >20.0 Copper 80 - 155 ug/dL 131 Zinc 60 - 120 ug/dL 63 EKG: sinus rhythm with PACs, low voltage QRS, nonspecific T wave abnormality. Abnormal EKG. ASSESSMENT/PLAN: 1. Irregular heart beat - ICD9: 427.9, ICD10: I49.9 (primary diagnosis) EKG shows PACs which are benign. Noted low voltage QRS and discussed further workup with echo which she is refusing. Red flags for re-assessment reviewed with patient in detail. - ECG COMPLETE 2. Shortness of breath on exertion - ICD9: 786.05, ICD10: R06.02 Normal lung sounds on exam. Obtain CXR and labs as ordered. Patient refusing cardiac workup with stress testing/echo. Advised pushing PO fluids, rest, standing slowly. Red flags for re-assessment reviewed with patient in detail. - XR CHEST 2V FRONTAL/LAT 3. Fatigue, unspecified type - ICD9: 780.79, ICD10: R53.83 - CBC + DIFF - COMP METABOLIC PANEL - TSH BLD 4. Skin tear of left forearm without complication, initial encounter - ICD9: 881.00, ICD10: S51.812A Shallow skin tear. Skin too thin to suture. Discussed wound care with abx ointment, non adherent pad. Up to date on tetanus booster. 5. Lightheadedness - ICD9: 780.4, ICD10: R42 See above. Iban Soto MD documented in this encounter [facility] 09-22-2021 Miscellaneous Notes Addended by: JOSE GORDON on: 09/22/2021 11:10 AM Modules accepted: Orders Patient has been identified by name and date of : Yes Pending Prescriptions Disp Refills GABAPENTIN 300 MG CAPSULE 90 capsule 11 Sig: one in morning, two at bedtime LISSA: No RX INSTRUCTIONS: Patient aware RX will be sent to pharmacy. No need to notify patient. [facility] [phone] Jose Gordon documented in this encounter [facility] 09-22-2021 Miscellaneous Notes Patient has been identified by name and date of : Yes Patient phones for refill(s): Pending Prescriptions Disp Refills APIXABAN 5 MG TABLET 60 tablet 11 Sig: Take 1 tablet by mouth twice daily. LISSA: No Date of last office visit in primary care: 08/25/21, NOV: 04/27/22 Last 2 Encounter Wt Readings: Date: Wt: 08/25/2021 113.4 kg (250 lb) 08/22/2021 114.8 kg (253 lb) Please advise. Thank you. Tabitha Monet RN documented in this encounter [facility] 09-01-2021 History of Present illness Narrative Patient presents for B-12 injection. Denies any problems at this time. Patient instructed on any SE of medication, verbalized understanding and agreed to proceed with treatment. Tolerated injection well. Ning Mckeon LPN documented in this encounter [facility] 08-22-2021 Instructions Su Nassar MD - 08/22/2021 2:55 PM EDT Assessment / Plan Assessment: 1) Diabetes type 2, sugars going low before lunch after taking 8mg glimepiride in AM. I'll ask her to drop to 4, 2, 1mg then stop all based on if sugars <100. 2) Peripheral neuropathy, hasn't been bothering her as much, is on [id number], 1 in AM, 2 in PM. I will have her taper off this if she can. Unchanged 1) Depression, doesn't feel she needs treatment at this point, not on any meds, (Dr. Dominguez ordered) 2) Vitamin D deficiency 3) Vitamin B12 deficiency, getting monthly injections, 4) hx Gastric bypass, weight stable. labs OK other than low iron 5) Abdominal wall hernias, had surgery, is in study, doesn't know if it was robotic. Plan: 1) continue on metformin 500mg twice a day, 2) decrease the glimepiride 4mg to one pill a day . If sugars below 100 at any time during the day, then stop the 4mg pills, and start taking 2 of the 1mg pills each morning. If sugar below 100 again, then drop to one of the 1mg pills. Next time it goes below 100, then stop the glimepiride completely. 3) stop the morning gapabentin, and just take 2 pills at bedtime. If after a week the pain is not worse, then you can decrease to 1 pill at bedtime. If after at least another week the pain is not worse, then you can try stopping the gabapentin 2) return to me in 3 months. Su Nassar MD documented in this encounter [facility] 08-22-2021 Nurse Note Images from the original note were not included. documented in this encounter [facility] 08-22-2021 History of Present illness Narrative Assessment / Plan Assessment: 1) Diabetes type 2, sugars going low before lunch after taking 8mg glimepiride in AM. I'll ask her to drop to 4, 2, 1mg then stop all based on if sugars <100. 2) Peripheral neuropathy, hasn't been bothering her as much, is on [id number], 1 in AM, 2 in PM. I will have her taper off this if she can. Unchanged 1) Depression, doesn't feel she needs treatment at this point, not on any meds, (Dr. Dominguez ordered) 2) Vitamin D deficiency 3) Vitamin B12 deficiency, getting monthly injections, 4) hx Gastric bypass, weight stable. labs OK other than low iron 5) Abdominal wall hernias, had surgery, is in study, doesn't know if it was robotic. Plan: 1) continue on metformin 500mg twice a day, 2) decrease the glimepiride 4mg to one pill a day . If sugars below 100 at any time during the day, then stop the 4mg pills, and start taking 2 of the 1mg pills each morning. If sugar below 100 again, then drop to one of the 1mg pills. Next time it goes below 100, then stop the glimepiride completely. 3) stop the morning gapabentin, and just take 2 pills at bedtime. If after a week the pain is not worse, then you can decrease to 1 pill at bedtime. If after at least another week the pain is not worse, then you can try stopping the gabapentin 2) return to me in 3 months. Su Nassar MD Data Review Component Latest Ref Rng & Units 10/10/2020 Iron 41 - 186 ug/dL 34 (L) TIBC 232 - 386 ug/dL 318 Transferrin Saturation 15 - 57 % 11 (L) Zinc 55 - 150 ug/dL 57 Vitamin D 25 Hydroxy 31.0 - 80.0 ng/mL 43.2 PTH, Intact 15 - 65 pg/mL 31 Folate >4.7 ng/mL >20.0 Vitamin B12 232 - 1,245 pg/mL 609 Copper 85 - 155 ug/dL 121 Calcium 8.5 - 10.2 mg/dL 8.9 Component Hemoglobin A1C Latest Ref Rng & Units 4.3 - 5.6 % 03/17/2019 7.5 (H) 10/12/2019 7.8 (H) 02/16/2020 7.6 (H) 06/28/2020 7.6 (H) 10/07/2020 7.7 (H) 08/21/21 6.9 Component Latest Ref Rng & Units 10/07/2020 Protein, Total 6.3 - 8.0 g/dL 6.5 Albumin 3.9 - 4.9 g/dL 3.8 (L) Calcium 8.5 - 10.2 mg/dL 8.7 Bilirubin, Total 0.2 - 1.3 mg/dL 0.3 Alkaline Phosphatase 34 - 123 U/L 103 AST 13 - 35 U/L 10 (L) Glucose 74 - 99 mg/dL 140 (H) BUN 7 - 21 mg/dL 13 Creatinine 0.58 - 0.96 mg/dL 0.55 (L) Sodium 136 - 144 mmol/L 138 Potassium 3.7 - 5.1 mmol/L 4.1 Chloride 97 - 105 mmol/L 103 CO2 22 - 30 mmol/L 25 Anion Gap 9 - 18 mmol/L 10 ALT 7 - 38 U/L 8 Component Latest Ref Rng & Units 10/10/2020 WBC 3.70 - 11.00 k/uL 7.12 RBC 3.90 - 5.20 m/uL 4.09 Hemoglobin 11.5 - 15.5 g/dL 12.9 Hematocrit 36.0 - 46.0 % 38.8 MCV 80.0 - 100.0 fL 94.9 MCH 26.0 - 34.0 pG 31.5 MCHC 30.5 - 36.0 g/dL 33.2 RDW-CV 11.5 - 15.0 % 13.9 Platelet Count 150 - 400 k/uL 237 MPV 9.0 - 12.7 fL 11.1 Component Latest Ref Rng & Units 09/11/2017 Cholesterol, Total <200 mg/dL 189 Triglyceride <150 mg/dL 115 HDL Cholesterol >39 mg/dL 69 LDL Cholesterol <100 mg/dL 97 Non HDL Cholesterol <130 mg/dL 120 Component Latest Ref Rng & Units 10/10/2020 Iron 41 - 186 ug/dL 34 (L) TIBC 232 - 386 ug/dL 318 Transferrin Saturation 15 - 57 % 11 (L) Zinc 55 - 150 ug/dL 57 Vitamin D 25 Hydroxy 31.0 - 80.0 ng/mL 43.2 PTH, Intact 15 - 65 pg/mL 31 Folate >4.7 ng/mL >20.0 Vitamin B12 232 - 1,245 pg/mL 609 Copper 85 - 155 ug/dL 121 Component Latest Ref Rng & Units 10/10/2020 Total Cholesterol, Nonfasting <200 mg/dL 182 Triglycerides, Nonfasting <150 mg/dL 129 HDL Cholesterol, Nonfasting >39 mg/dL 58 LDL Cholesterol, Nonfasting <100 mg/dL 98 Non HDL Cholesterol, Nonfasting <130 mg/dL 124 History Diabetes type 2, on metformin ER 500mg 4x/d, having terrible diarrhea Drug history: *Invokana: yeast inf, has these even without this Rx *Byetta: ineffective *Metformin: diarrhea if more than 2 per day sugars 80-120 says she is hungry, though not shaky or sweaty. Numbness in toes progressed up her foot to lower leg. Saw Sarahi Lew for this neuropathy, she increased gabapentin (dose?) currently 2 at night and 1 in AM Sugars going down to 70s sometimes before lunch. Vitamin D deficiency, on calcium 500 mg (+400U vitD) 2x daily, plus calcitriol 0.5 mcg daily Context: 1) s/p COVID vaccine Pfizer Diabetes History Type (1990): dx type 2 diabetes. Control hx Component Hemoglobin A1C Latest Ref Rng & Units 4.3 - 5.6 % 02/26/2017 7.2 (H) 09/11/2017 7.0 (H) 02/25/2018 7.2 (H) 06/22/2018 7.2 10/11/2018 7.6 01/17/2019 7.6 03/17/19 7.5 10/12/19 7.8 02/16/20 7.6 06/28/2020 7.6 01/10/2021 7.0 Intervention hx (): Jordin-en-Y gastric bypass surgery Eye hx ():exam by Dr Carlisle, appear to have refractive change due to better BS control,will confirm in 6 wks. No retinopathy. (09/26/10): exam Alfonso Luong OD, no DM changes (01/2014): exam Alfonso Luong OD, no DM changes (?11/2015): no DM changes per pt (02/2018): no DM changes per pt Renal hx Component Albumin/Creat Ratio Latest Ref Rng 0 - 30 mg/g 05/21/2011 7 05/10/2012 13 03/27/2013 9 03/07/2015 5 02/26/17 <10 06/21/18 38 Component BUN Creatinine Latest Ref Rng & Units 7 - 21 mg/dL 0.58 - 0.96 mg/dL 09/11/2017 18 0.62 02/25/2018 18 0.61 06/21/2018 18 0.51 (L) Vitals hx Vitals 08/18/2016 09/01/2016 10/22/2016 01/30/2017 03/02/2017 SITTING BP 132/76 128/82 130/69 126/76 123/67 Vitals 10/12/2013 12/07/2013 02/09/2014 05/29/2014 06/19/2014 WEIGHT in POUNDS 235 lb 244 lb 237 lb 237 lb 232 lb 12.8 oz (06/19/14): no BP meds or angiotensin drugs Neuro hx (07/16/10): no resting acral dysesthesias Vascular hx Component Latest Ref Rng 02/06/2013 02/05/2014 03/07/2015 Triglyceride 30 - 149 mg/dL 87 119 148 Cholesterol 100 - 199 mg/dL 167 185 189 HDL Cholesterol >55 mg/dL 67 68 63 LDL Cholesterol 60 - 129 mg/dL 83 93 96 Non HDL Cholesterol 90 - 159 mg/dL 100 117 126 (02/14/13): no hx ME, stroke, claudication, intolerant of statins, niacin and welchol Sleep hx (06/19/14): says she has hx mild sleep apnea , intolerant of CPAP because of claustrophobia, was seen by Dr. Gonzalez Exercise hx (06/19/14): no exercise currently ( just had stroke) Medications (06/19/14): no Rx for blood sugars currently. Note that she has history of diarrhea from metformin (06/18/15): metformin ER 500 mg daily (08/18/16): metformin ER 500 mg/d (03/02/17): metformin ER 500 mg 2x/d (09/14/17): metformin ER 500 mg 2x/d (01/17/19): metformin ER 500mg 3x/d in AM (11/16/19): metformin ER 500mg 4x/d (02/20/20): metformin ER 500mg 4x/d (07/02/20): metformin ER 500mg 4x/d (01/10/21): metformin ER 500mg 2x/d, glimepiride 2mg x 2/d Physicians (06/19/14): primary doc is Analia RAVEN Res: positive for recent dx pulmonary emboli, on Elequis PHYSICAL EXAM PAST MEDICAL HISTORY 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 Contact dermatitis and other eczema, due to unspecified cause Lichen 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 per [facility] outside facility Apr 1997 MORBID OBESITY 08/18/2007 Obstructive sleep apnea Sleep study 2003 Occlusion and stenosis of carotid artery without mention of cerebral infarction 03/09/06 mild stenosis shown on u/s at [facility] u/s repeated 02/02/07 with no change Pure hypercholesterolemia Type II or unspecified type diabetes mellitus with renal manifestations, uncontrolled(250.42) Unspecified glaucoma(365.9) Unspecified pruritic disorder PAST SURGICAL HISTORY PAST SURGICAL HISTORY Procedure Laterality Date EGD TRANSORAL BIOPSY SINGLE/MULTIPLE 05-14-15 GASTRIC BYPASS 09/14/2007 INCISION & DRAINAGE ABSCESS SIMPLE/SINGLE 2009 ABD WALL and intestine removed LAPS COLECTOMY PRTL W/RMVL TERMINAL ILEUM 02/20/09 polyps LIG/TRNSXJ FLP TUBE ABDL/VAG APPR UNI/BI Tubal ligation NSL/SINUS NDSC SPHENDT RMVL TISS SPHENOID SINUS PAST SURGICAL HISTORY OF 02/2008 Left total knee PAST SURGICAL HISTORY OF 04/2008 Right total knee FAMILY HISTORY FAMILY HISTORY Problem Relation Age of Onset Breast Cancer Mother cva Stroke Mother Heart Father AAA Colon Cancer Father other (leukemia) Brother SOCIAL HISTORY SOCIAL HISTORY Marital Status: Tobacco Use: Never Alcohol Use: No Drug Use: No Sexual Activity: Not on file MEDICATIONS Prior to Admission Medications: Current Outpatient Prescriptions on File Prior to Visit: cefUROXime (CEFTIN) 250 mg tablet Take 1 tablet by mouth twice daily for 10 days. HYDROcodone-Acetaminophen 7.5-300 mg tab Take 1 tablet by mouth twice daily as needed. cyanocobalamin, Vitamin B12, 1,000 mcg/mL soln Inject 1 mL intramuscularly as directed. clobetasol (TEMOVATE) 0.05 % ointment Apply a thin layer TO AFFECTED AREA every night before bed. lidocaine (XYLOCAINE) 5 % ointment Apply 1 application to affected area twice daily. gabapentin 300 mg capsule Take 1 capsule by mouth three times daily. calcitriol (ROCALTROL) 0.5 mcg capsule Take 1 capsule by mouth once daily. blood sugar diagnostic(FREESTYLE TEST STRIPS) Taking blood sugars once daily BIOTIN 2,500 MCG TAB Take one(1) tablet daily.. ascorbic acid(VITAMIN C 500 MG TAB) Take one(1) tablet daily. calcium carbonate(CALTRATE 600 600 MG (1,500 MG) TAB) Take one(1) tablet twice daily. pnv/iron,carb/om-3/fa/fat 1(PRE- MULTIVITAMINS WITH MINERALS 27 MG-1 MG-300 MG CAP) Take one(1) tablet daily. ALLERGIES Review of patient's allergies indicates: Asa (Salicylates) Anaphylaxis Avapro (Irbesartan) Swelling Byetta (Exenatide) Comment:Can not remember what effect but not suppose to take it Crestor (Rosuvastat* Erythromycin Etodolac Contraindication-Medical Surgical Comment:Was told never to take NSAID due to bypass surgery. She also developed severe pain after taking Etodolac that was excruciating Lipitor (Atorvastat* Niaspan (Niacin (An* Penicillins Rash Pravachol (Pravasta* Sulfa (Sulfonamide * Rash Zetia (Ezetimibe) Zocor (Simvastatin) Duoderm [Other] Rash Ointments [Other] Comment:Can use lotions/creams, but ointments cause itchy/burning and painful rash. Tape [Other] documented in this encounter [facility] documented as of this encounter (statuses as of 08/22/2021) [facility] History of Past illness Narrative* Problem Noted Date Resolved Date Obesity, Class III, BMI >= 40 01/05/2019 History of gastric bypass 06/19/20142021 Other physical therapy 08/12/2010 2 Other postoperative infection 03/08/2009 Morbid obesity 08/18/2007 03/10/2019 Diabetes mellitus type 2, 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, without complications 01/20/2005 08/21/2021 Last Assessment & Plan: SSI AC scale 1 Carb controlled diet Hold home metformin documented as of this encounter (statuses as of 09/01/2021) [facility] History of Past illness Narrative* Problem Noted Date Resolved Date Obesity, Class III, BMI >= 40 01/05/2019 History of gastric bypass 06/19/20142021 Other physical therapy 08/12/2010 2 Other postoperative infection 03/08/2009 Morbid obesity 08/18/2007 03/10/2019 Diabetes mellitus type 2, 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, without complications 01/20/2005 08/21/2021 Last Assessment & Plan: SSI AC scale 1 Carb controlled diet Hold home metformin documented as of this encounter (statuses as of 09/22/2021) [facility] History of Past illness Narrative* Problem Noted Date Resolved Date Obesity, Class III, BMI >= 40 01/05/2019 History of gastric bypass 06/19/20142021 Other physical therapy 08/12/2010 2 Other postoperative infection 03/08/2009 Morbid obesity 08/18/2007 03/10/2019 Diabetes mellitus type 2, 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, without complications 01/20/2005 08/21/2021 Last Assessment & Plan: SSI AC scale 1 Carb controlled diet Hold home metformin documented as of this encounter (statuses as of 10/06/2021) [facility] History of Past illness Narrative* Problem Noted Date Resolved Date Obesity, Class III, BMI >= 40 01/05/2019 History of gastric bypass 06/19/20142021 Other physical therapy 08/12/2010 2 Other postoperative infection 03/08/2009 Morbid obesity 08/18/2007 03/10/2019 Diabetes mellitus type 2, 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, without complications 01/20/2005 08/21/2021 Last Assessment & Plan: SSI AC scale 1 Carb controlled diet Hold home metformin documented as of this encounter (statuses as of 10/07/2021) [facility] History of Past illness Narrative* Problem Noted Date Resolved Date Obesity, Class III, BMI >= 40 01/05/2019 History of gastric bypass 06/19/20142021 Other physical therapy 08/12/2010 2 Other postoperative infection 03/08/2009 Morbid obesity 08/18/2007 03/10/2019 Diabetes mellitus type 2, 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, without complications 01/20/2005 08/21/2021 Last Assessment & Plan: SSI AC scale 1 Carb controlled diet Hold home metformin documented as of this encounter (statuses as of 10/08/2021) [facility] History of Past illness Narrative* Problem Noted Date Resolved Date Obesity, Class III, BMI >= 40 01/05/2019 History of gastric bypass 06/19/20142021 Other physical therapy 08/12/2010 2 Other postoperative infection 03/08/2009 Morbid obesity 08/18/2007 03/10/2019 Diabetes mellitus type 2, 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, without complications 01/20/2005 08/21/2021 Last Assessment & Plan: SSI AC scale 1 Carb controlled diet Hold home metformin documented as of this encounter (statuses as of 10/09/2021) [facility] History of Past illness Narrative* Problem Noted Date Resolved Date Obesity, Class III, BMI >= 40 01/05/2019 History of gastric bypass 06/19/20142021 Other physical therapy 08/12/2010 2 Other postoperative infection 03/08/2009 Morbid obesity 08/18/2007 03/10/2019 Diabetes mellitus type 2, 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, without complications 01/20/2005 08/21/2021 Last Assessment & Plan: SSI AC scale 1 Carb controlled diet Hold home metformin documented as of this encounter (statuses as of 10/22/2021) [facility] History of Past illness Narrative* Problem Noted Date Resolved Date Obesity, Class III, BMI >= 40 01/05/2019 History of gastric bypass 06/19/20142021 Other physical therapy 08/12/2010 2 Other postoperative infection 03/08/2009 Morbid obesity 08/18/2007 03/10/2019 Diabetes mellitus type 2, 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, without complications 01/20/2005 08/21/2021 Last Assessment & Plan: SSI AC scale 1 Carb controlled diet Hold home metformin documented as of this encounter (statuses as of 10/22/2021) [facility] History of Past illness Narrative* Problem Noted Date Resolved Date Obesity, Class III, BMI >= 40 01/05/2019 History of gastric bypass 06/19/20142021 Other physical therapy 08/12/2010 2 Other postoperative infection 03/08/2009 Morbid obesity 08/18/2007 03/10/2019 Diabetes mellitus type 2, 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, without complications 01/20/2005 08/21/2021 Last Assessment & Plan: SSI AC scale 1 Carb controlled diet Hold home metformin documented as of this encounter (statuses as of 10/30/2021) [facility] History of Past illness Narrative* Problem Noted Date Resolved Date Obesity, Class III, BMI >= 40 01/05/2019 History of gastric bypass 06/19/20142021 Other physical therapy 08/12/2010 2 Other postoperative infection 03/08/2009 Morbid obesity 08/18/2007 03/10/2019 Diabetes mellitus type 2, 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, without complications 01/20/2005 08/21/2021 Last Assessment & Plan: SSI AC scale 1 Carb controlled diet Hold home metformin documented as of this encounter (statuses as of 11/03/2021) [facility] History of Past illness Narrative* Problem Noted Date Resolved Date Obesity, Class III, BMI >= 40 01/05/2019 History of gastric bypass 06/19/20142021 Other physical therapy 08/12/2010 2 Other postoperative infection 03/08/2009 Morbid obesity 08/18/2007 03/10/2019 Diabetes mellitus type 2, 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, without complications 01/20/2005 08/21/2021 Last Assessment & Plan: SSI AC scale 1 Carb controlled diet Hold home metformin documented as of this encounter (statuses as of 11/03/2021) [facility] History of Past illness Narrative* Problem Noted Date Resolved Date Obesity, Class III, BMI >= 40 01/05/2019 History of gastric bypass 06/19/20142021 Other physical therapy 08/12/2010 2 Other postoperative infection 03/08/2009 Morbid obesity 08/18/2007 03/10/2019 Diabetes mellitus type 2, 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, without complications 01/20/2005 08/21/2021 Last Assessment & Plan: SSI AC scale 1 Carb controlled diet Hold home metformin documented as of this encounter (statuses as of 12/04/2021) [facility] History of Past illness Narrative* Problem Noted Date Resolved Date Obesity, Class III, BMI >= 40 01/05/2019 History of gastric bypass 06/19/20142021 Other physical therapy 08/12/2010 2 Other postoperative infection 03/08/2009 Morbid obesity 08/18/2007 03/10/2019 Diabetes mellitus type 2, 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, without complications 01/20/2005 08/21/2021 Last Assessment & Plan: SSI AC scale 1 Carb controlled diet Hold home metformin documented as of this encounter (statuses as of 12/05/2021) [facility] History of Past illness Narrative* Problem Noted Date Resolved Date Obesity, Class III, BMI >= 40 01/05/2019 History of gastric bypass 06/19/20142021 Other physical therapy 08/12/2010 2 Other postoperative infection 03/08/2009 Morbid obesity 08/18/2007 03/10/2019 Diabetes mellitus type 2, 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, without complications 01/20/2005 08/21/2021 Last Assessment & Plan: SSI AC scale 1 Carb controlled diet Hold home metformin documented as of this encounter (statuses as of 12/15/2021) [facility] History of Past illness Narrative* Problem Noted Date Resolved Date Obesity, Class III, BMI >= 40 01/05/2019 History of gastric bypass 06/19/20142021 Other physical therapy 08/12/2010 2 Other postoperative infection 03/08/2009 Morbid obesity 08/18/2007 03/10/2019 Diabetes mellitus type 2, 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, without complications 01/20/2005 08/21/2021 Last Assessment & Plan: SSI AC scale 1 Carb controlled diet Hold home metformin documented as of this encounter (statuses as of 12/17/2021) [facility] History of Past illness Narrative* Problem Noted Date Resolved Date Obesity, Class III, BMI >= 40 01/05/2019 History of gastric bypass 06/19/20142021 Other physical therapy 08/12/2010 2 Other postoperative infection 03/08/2009 Morbid obesity 08/18/2007 03/10/2019 Diabetes mellitus type 2, 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, without complications 01/20/2005 08/21/2021 Last Assessment & Plan: SSI AC scale 1 Carb controlled diet Hold home metformin documented as of this encounter (statuses as of 01/05/2022) [facility] History of Past illness Narrative* Problem Noted Date Resolved Date Obesity, Class III, BMI >= 40 01/05/2019 History of gastric bypass 06/19/20142021 Other physical therapy 08/12/2010 2 Other postoperative infection 03/08/2009 Morbid obesity 08/18/2007 03/10/2019 Diabetes mellitus type 2, 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, without complications 01/20/2005 08/21/2021 Last Assessment & Plan: SSI AC scale 1 Carb controlled diet Hold home metformin documented as of this encounter (statuses as of 01/05/2022) [facility] History of Past illness Narrative* Problem Noted Date Resolved Date Obesity, Class III, BMI >= 40 01/05/2019 History of gastric bypass 06/19/20142021 Other physical therapy 08/12/2010 2 Other postoperative infection 03/08/2009 Morbid obesity 08/18/2007 03/10/2019 Diabetes mellitus type 2, 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, without complications 01/20/2005 08/21/2021 Last Assessment & Plan: SSI AC scale 1 Carb controlled diet Hold home metformin documented as of this encounter (statuses as of 01/12/2022) [facility] History of Past illness Narrative* Problem Noted Date Resolved Date Obesity, Class III, BMI >= 40 01/05/2019 History of gastric bypass 06/19/20142021 Other physical therapy 08/12/2010 2 Other postoperative infection 03/08/2009 Morbid obesity 08/18/2007 03/10/2019 Diabetes mellitus type 2, 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, without complications 01/20/2005 08/21/2021 Last Assessment & Plan: SSI AC scale 1 Carb controlled diet Hold home metformin documented as of this encounter (statuses as of 01/19/2022) [facility] History of Past illness Narrative* Problem Noted Date Resolved Date Obesity, Class III, BMI >= 40 01/05/2019 History of gastric bypass 06/19/20142021 Other physical therapy 08/12/2010 2 Other postoperative infection 03/08/2009 Morbid obesity 08/18/2007 03/10/2019 Diabetes mellitus type 2, 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, without complications 01/20/2005 08/21/2021 Last Assessment & Plan: SSI AC scale 1 Carb controlled diet Hold home metformin documented as of this encounter (statuses as of 01/29/2022) [facility] History of Past illness Narrative* Problem Noted Date Resolved Date Obesity, Class III, BMI >= 40 01/05/2019 History of gastric bypass 06/19/20142021 Other physical therapy 08/12/2010 2 Other postoperative infection 03/08/2009 Morbid obesity 08/18/2007 03/10/2019 Diabetes mellitus type 2, 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, without complications 01/20/2005 08/21/2021 Last Assessment & Plan: SSI AC scale 1 Carb controlled diet Hold home metformin documented as of this encounter (statuses as of 02/04/2022) [facility] History of Past illness Narrative* Problem Noted Date Resolved Date Obesity, Class III, BMI >= 40 01/05/2019 History of gastric bypass 06/19/20142021 Other physical therapy 08/12/2010 2 Other postoperative infection 03/08/2009 Morbid obesity 08/18/2007 03/10/2019 Diabetes mellitus type 2, 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, without complications 01/20/2005 08/21/2021 Last Assessment & Plan: SSI AC scale 1 Carb controlled diet Hold home metformin documented as of this encounter (statuses as of 02/04/2022) [facility] History of Past illness Narrative* Problem Noted Date Resolved Date Obesity, Class III, BMI >= 40 01/05/2019 History of gastric bypass 06/19/20142021 Other physical therapy 08/12/2010 2 Other postoperative infection 03/08/2009 Morbid obesity 08/18/2007 03/10/2019 Diabetes mellitus type 2, 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, without complications 01/20/2005 08/21/2021 Last Assessment & Plan: SSI AC scale 1 Carb controlled diet Hold home metformin documented as of this encounter (statuses as of 02/05/2022) [facility] History of Past illness Narrative* Problem Noted Date Resolved Date Obesity, Class III, BMI >= 40 01/05/2019 History of gastric bypass 06/19/20142021 Other physical therapy 08/12/2010 2 Other postoperative infection 03/08/2009 Morbid obesity 08/18/2007 03/10/2019 Diabetes mellitus type 2, 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, without complications 01/20/2005 08/21/2021 Last Assessment & Plan: SSI AC scale 1 Carb controlled diet Hold home metformin documented as of this encounter (statuses as of 02/10/2022) [facility] History of Past illness Narrative* Problem Noted Date Resolved Date Obesity, Class III, BMI >= 40 01/05/2019 History of gastric bypass 06/19/20142021 Other physical therapy 08/12/2010 2 Other postoperative infection 03/08/2009 Morbid obesity 08/18/2007 03/10/2019 Diabetes mellitus type 2, 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, without complications 01/20/2005 08/21/2021 Last Assessment & Plan: SSI AC scale 1 Carb controlled diet Hold home metformin documented as of this encounter (statuses as of 02/10/2022) [facility] History of Past illness Narrative* Problem Noted Date Resolved Date Obesity, Class III, BMI >= 40 01/05/2019 History of gastric bypass 06/19/20142021 Other physical therapy 08/12/2010 2 Other postoperative infection 03/08/2009 Morbid obesity 08/18/2007 03/10/2019 Diabetes mellitus type 2, 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, without complications 01/20/2005 08/21/2021 Last Assessment & Plan: SSI AC scale 1 Carb controlled diet Hold home metformin documented as of this encounter (statuses as of 02/16/2022) [facility] History of Past illness Narrative* Problem Noted Date Resolved Date Obesity, Class III, BMI >= 40 01/05/2019 History of gastric bypass 06/19/20142021 Other physical therapy 08/12/2010 2 Other postoperative infection 03/08/2009 Morbid obesity 08/18/2007 03/10/2019 Diabetes mellitus type 2, 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, without complications 01/20/2005 08/21/2021 Last Assessment & Plan: SSI AC scale 1 Carb controlled diet Hold home metformin documented as of this encounter (statuses as of 02/27/2022) [facility] History of Past illness Narrative* Problem Noted Date Resolved Date Obesity, Class III, BMI >= 40 01/05/2019 History of gastric bypass 06/19/20142021 Other physical therapy 08/12/2010 2 Other postoperative infection 03/08/2009 Morbid obesity 08/18/2007 03/10/2019 Diabetes mellitus type 2, 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, without complications 01/20/2005 08/21/2021 Last Assessment & Plan: SSI AC scale 1 Carb controlled diet Hold home metformin documented as of this encounter (statuses as of 03/02/2022) [facility] History of Past illness Narrative* Problem Noted Date Resolved Date Obesity, Class III, BMI >= 40 01/05/2019 History of gastric bypass 06/19/20142021 Other physical therapy 08/12/2010 2 Other postoperative infection 03/08/2009 Morbid obesity 08/18/2007 03/10/2019 Diabetes mellitus type 2, 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, without complications 01/20/2005 08/21/2021 Last Assessment & Plan: SSI AC scale 1 Carb controlled diet Hold home metformin documented as of this encounter (statuses as of 03/10/2022) [facility] History of Past illness Narrative* Problem Noted Date Resolved Date Obesity, Class III, BMI >= 40 01/05/2019 History of gastric bypass 06/19/20142021 Other physical therapy 08/12/2010 2 Other postoperative infection 03/08/2009 Morbid obesity 08/18/2007 03/10/2019 Diabetes mellitus type 2, 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, without complications 01/20/2005 08/21/2021 Last Assessment & Plan: SSI AC scale 1 Carb controlled diet Hold home metformin documented as of this encounter (statuses as of 03/11/2022) [facility] History of Past illness Narrative* Problem Noted Date Resolved Date Obesity, Class III, BMI >= 40 01/05/2019 History of gastric bypass 06/19/20142021 Other physical therapy 08/12/2010 2 Other postoperative infection 03/08/2009 Morbid obesity 08/18/2007 03/10/2019 Diabetes mellitus type 2, 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, without complications 01/20/2005 08/21/2021 Last Assessment & Plan: SSI AC scale 1 Carb controlled diet Hold home metformin documented as of this encounter (statuses as of 03/12/2022) [facility] History of Past illness Narrative* Problem Noted Date Resolved Date Obesity, Class III, BMI >= 40 01/05/2019 History of gastric bypass 06/19/20142021 Other physical therapy 08/12/2010 2 Other postoperative infection 03/08/2009 Morbid obesity 08/18/2007 03/10/2019 Diabetes mellitus type 2, 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, without complications 01/20/2005 08/21/2021 Last Assessment & Plan: SSI AC scale 1 Carb controlled diet Hold home metformin documented as of this encounter (statuses as of 03/19/2022) [facility] History of Past illness Narrative* Problem Noted Date Resolved Date Obesity, Class III, BMI >= 40 01/05/2019 History of gastric bypass 06/19/20142021 Other physical therapy 08/12/2010 2 Other postoperative infection 03/08/2009 Morbid obesity 08/18/2007 03/10/2019 Diabetes mellitus type 2, 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, without complications 01/20/2005 08/21/2021 Last Assessment & Plan: SSI AC scale 1 Carb controlled diet Hold home metformin documented as of this encounter (statuses as of 03/23/2022) [facility] History of Past illness Narrative* Problem Noted Date Resolved Date Obesity, Class III, BMI >= 40 01/05/2019 History of gastric bypass 06/19/20142021 Other physical therapy 08/12/2010 2 Other postoperative infection 03/08/2009 Morbid obesity 08/18/2007 03/10/2019 Diabetes mellitus type 2, 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, without complications 01/20/2005 08/21/2021 Last Assessment & Plan: SSI AC scale 1 Carb controlled diet Hold home metformin documented as of this encounter (statuses as of 03/25/2022) [facility] History of Past illness Narrative* Problem Noted Date Resolved Date Obesity, Class III, BMI >= 40 01/05/2019 History of gastric bypass 06/19/20142021 Other physical therapy 08/12/2010 2 Other postoperative infection 03/08/2009 Morbid obesity 08/18/2007 03/10/2019 Diabetes mellitus type 2, 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, without complications 01/20/2005 08/21/2021 Last Assessment & Plan: SSI AC scale 1 Carb controlled diet Hold home metformin documented as of this encounter (statuses as of 03/26/2022) [facility] History of Past illness Narrative* Problem Noted Date Resolved Date Obesity, Class III, BMI >= 40 01/05/2019 History of gastric bypass 06/19/20142021 Other physical therapy 08/12/2010 2 Other postoperative infection 03/08/2009 Morbid obesity 08/18/2007 03/10/2019 Diabetes mellitus type 2, 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, without complications 01/20/2005 08/21/2021 Last Assessment & Plan: SSI AC scale 1 Carb controlled diet Hold home metformin documented as of this encounter (statuses as of 03/27/2022) [facility] History of Past illness Narrative* Problem Noted Date Resolved Date Obesity, Class III, BMI >= 40 01/05/2019 History of gastric bypass 06/19/20142021 Other physical therapy 08/12/2010 2 Other postoperative infection 03/08/2009 Morbid obesity 08/18/2007 03/10/2019 Diabetes mellitus type 2, 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, without complications 01/20/2005 08/21/2021 Last Assessment & Plan: SSI AC scale 1 Carb controlled diet Hold home metformin documented as of this encounter (statuses as of 04/06/2022) [facility] History of Past illness Narrative* Problem Noted Date Resolved Date Obesity, Class III, BMI >= 40 01/05/2019 History of gastric bypass 06/19/20142021 Other physical therapy 08/12/2010 2 Other postoperative infection 03/08/2009 Morbid obesity 08/18/2007 03/10/2019 Diabetes mellitus type 2, 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, without complications 01/20/2005 08/21/2021 Last Assessment & Plan: SSI AC scale 1 Carb controlled diet Hold home metformin documented as of this encounter (statuses as of 04/10/2022) [facility] History of Past illness Narrative* Problem Noted Date Resolved Date Obesity, Class III, BMI >= 40 01/05/2019 History of gastric bypass 06/19/20142021 Other physical therapy 08/12/2010 2 Other postoperative infection 03/08/2009 Morbid obesity 08/18/2007 03/10/2019 Diabetes mellitus type 2, 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, without complications 01/20/2005 08/21/2021 Last Assessment & Plan: SSI AC scale 1 Carb controlled diet Hold home metformin documented as of this encounter (statuses as of 04/27/2022) [facility] History of Past illness Narrative* Problem Noted Date Resolved Date Obesity, Class III, BMI >= 40 01/05/2019 History of gastric bypass 06/19/20142021 Other physical therapy 08/12/2010 2 Other postoperative infection 03/08/2009 Morbid obesity 08/18/2007 03/10/2019 Diabetes mellitus type 2, 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, without complications 01/20/2005 08/21/2021 Last Assessment & Plan: SSI AC scale 1 Carb controlled diet Hold home metformin documented as of this encounter (statuses as of 04/28/2022) [facility] History of Past illness Narrative* Problem Noted Date Resolved Date Obesity, Class III, BMI >= 40 01/05/2019 History of gastric bypass 06/19/20142021 Other physical therapy 08/12/2010 2 Other postoperative infection 03/08/2009 Morbid obesity 08/18/2007 03/10/2019 Diabetes mellitus type 2, 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, without complications 01/20/2005 08/21/2021 Last Assessment & Plan: SSI AC scale 1 Carb controlled diet Hold home metformin documented as of this encounter (statuses as of 04/29/2022) [facility] History of Past illness Narrative* Problem Noted Date Resolved Date Obesity, Class III, BMI >= 40 01/05/2019 History of gastric bypass 06/19/20142021 Other physical therapy 08/12/2010 2 Other postoperative infection 03/08/2009 Morbid obesity 08/18/2007 03/10/2019 Diabetes mellitus type 2, 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, without complications 01/20/2005 08/21/2021 Last Assessment & Plan: SSI AC scale 1 Carb controlled diet Hold home metformin documented as of this encounter (statuses as of 05/04/2022) [facility] History of Past illness Narrative* Problem Noted Date Resolved Date Obesity, Class III, BMI >= 40 01/05/2019 History of gastric bypass 06/19/20142021 Other physical therapy 08/12/2010 2 Other postoperative infection 03/08/2009 Morbid obesity 08/18/2007 03/10/2019 Diabetes mellitus type 2, 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, without complications 01/20/2005 08/21/2021 Last Assessment & Plan: SSI AC scale 1 Carb controlled diet Hold home metformin documented as of this encounter (statuses as of 05/06/2022) [facility] History of Past illness Narrative* Problem Noted Date Resolved Date Obesity, Class III, BMI >= 40 01/05/2019 History of gastric bypass 06/19/20142021 Other physical therapy 08/12/2010 2 Other postoperative infection 03/08/2009 Morbid obesity 08/18/2007 03/10/2019 Diabetes mellitus type 2, 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, without complications 01/20/2005 08/21/2021 Last Assessment & Plan: SSI AC scale 1 Carb controlled diet Hold home metformin documented as of this encounter (statuses as of 05/06/2022) [facility] History of Past illness Narrative* Problem Noted Date Resolved Date Obesity, Class III, BMI >= 40 01/05/2019 History of gastric bypass 06/19/20142021 Other physical therapy 08/12/2010 2 Other postoperative infection 03/08/2009 Morbid obesity 08/18/2007 03/10/2019 Diabetes mellitus type 2, 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, without complications 01/20/2005 08/21/2021 Last Assessment & Plan: SSI AC scale 1 Carb controlled diet Hold home metformin documented as of this encounter (statuses as of 05/07/2022) [facility] History of Past illness Narrative* Problem Noted Date Resolved Date Obesity, Class III, BMI >= 40 01/05/2019 History of gastric bypass 06/19/20142021 Other physical therapy 08/12/2010 2 Other postoperative infection 03/08/2009 Morbid obesity 08/18/2007 03/10/2019 Diabetes mellitus type 2, 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, without complications 01/20/2005 08/21/2021 Last Assessment & Plan: SSI AC scale 1 Carb controlled diet Hold home metformin documented as of this encounter (statuses as of 05/22/2022) [facility] History of Past illness Narrative* Problem Noted Date Resolved Date Obesity, Class III, BMI >= 40 01/05/2019 History of gastric bypass 06/19/20142021 Other physical therapy 08/12/2010 2 Other postoperative infection 03/08/2009 Morbid obesity 08/18/2007 03/10/2019 Diabetes mellitus type 2, 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, without complications 01/20/2005 08/21/2021 Last Assessment & Plan: SSI AC scale 1 Carb controlled diet Hold home metformin documented as of this encounter (statuses as of 06/03/2022) [facility] History of Past illness Narrative* Problem Noted Date Resolved Date Obesity, Class III, BMI >= 40 01/05/2019 History of gastric bypass 06/19/20142021 Other physical therapy 08/12/2010 2 Other postoperative infection 03/08/2009 Morbid obesity 08/18/2007 03/10/2019 Diabetes mellitus type 2, 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, without complications 01/20/2005 08/21/2021 Last Assessment & Plan: SSI AC scale 1 Carb controlled diet Hold home metformin documented as of this encounter (statuses as of 06/03/2022) [address]08-2019 History of Past illness Narrative* Problem Noted Date Resolved Date Obesity, Class III, BMI >= 40 01/05/2019 History of gastric bypass 06/19/20142021 Other physical therapy 08/12/2010 2 Other postoperative infection 03/08/2009 Morbid obesity 08/18/2007 03/10/2019 Diabetes mellitus type 2, 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, without complications 01/20/2005 08/21/2021 Last Assessment & Plan: SSI AC scale 1 Carb controlled diet Hold home metformin documented as of this encounter (statuses as of 06/05/2022) [facility] History of Past illness Narrative* Problem Noted Date Resolved Date Obesity, Class III, BMI >= 40 01/05/2019 History of gastric bypass 06/19/20142021 Other physical therapy 08/12/2010 2 Other postoperative infection 03/08/2009 Morbid obesity 08/18/2007 03/10/2019 Diabetes mellitus type 2, 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, without complications 01/20/2005 08/21/2021 Last Assessment & Plan: SSI AC scale 1 Carb controlled diet Hold home metformin documented as of this encounter (statuses as of 06/05/2022) [facility] History of Past illness Narrative* Problem Noted Date Resolved Date Obesity, Class III, BMI >= 40 01/05/2019 History of gastric bypass 06/19/20142021 Other physical therapy 08/12/2010 2 Other postoperative infection 03/08/2009 Morbid obesity 08/18/2007 03/10/2019 Diabetes mellitus type 2, 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, without complications 01/20/2005 08/21/2021 Last Assessment & Plan: SSI AC scale 1 Carb controlled diet Hold home metformin documented as of this encounter (statuses as of 06/11/2022) [facility] History of Past illness Narrative* Problem Noted Date Resolved Date Obesity, Class III, BMI >= 40 01/05/2019 History of gastric bypass 06/19/20142021 Other physical therapy 08/12/2010 2 Other postoperative infection 03/08/2009 Morbid obesity 08/18/2007 03/10/2019 Diabetes mellitus type 2, 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, without complications 01/20/2005 08/21/2021 Last Assessment & Plan: SSI AC scale 1 Carb controlled diet Hold home metformin documented as of this encounter (statuses as of 06/11/2022) [facility] History of Past illness Narrative* Problem Noted Date Resolved Date Obesity, Class III, BMI >= 40 01/05/2019 History of gastric bypass 06/19/20142021 Other physical therapy 08/12/2010 2 Other postoperative infection 03/08/2009 Morbid obesity 08/18/2007 03/10/2019 Diabetes mellitus type 2, 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, without complications 01/20/2005 08/21/2021 Last Assessment & Plan: SSI AC scale 1 Carb controlled diet Hold home metformin documented as of this encounter (statuses as of 06/15/2022) [facility] History of Past illness Narrative* Problem Noted Date Resolved Date Obesity, Class III, BMI >= 40 01/05/2019 History of gastric bypass 06/19/20142021 Other physical therapy 08/12/2010 2 Other postoperative infection 03/08/2009 Morbid obesity 08/18/2007 03/10/2019 Diabetes mellitus type 2, 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, without complications 01/20/2005 08/21/2021 Last Assessment & Plan: SSI AC scale 1 Carb controlled diet Hold home metformin documented as of this encounter (statuses as of 06/18/2022) [facility] History of Past illness Narrative* Problem Noted Date Resolved Date Obesity, Class III, BMI >= 40 01/05/2019 History of gastric bypass 06/19/20142021 Other physical therapy 08/12/2010 2 Other postoperative infection 03/08/2009 Morbid obesity 08/18/2007 03/10/2019 Diabetes mellitus type 2, 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, without complications 01/20/2005 08/21/2021 Last Assessment & Plan: SSI AC scale 1 Carb controlled diet Hold home metformin documented as of this encounter (statuses as of 06/18/2022) [facility] History of Past illness Narrative* Problem Noted Date Resolved Date Obesity, Class III, BMI >= 40 01/05/2019 History of gastric bypass 06/19/20142021 Other physical therapy 08/12/2010 2 Other postoperative infection 03/08/2009 Morbid obesity 08/18/2007 03/10/2019 Diabetes mellitus type 2, 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, without complications 01/20/2005 08/21/2021 Last Assessment & Plan: SSI AC scale 1 Carb controlled diet Hold home metformin documented as of this encounter (statuses as of 06/23/2022) [facility] History of Past illness Narrative* Problem Noted Date Resolved Date Obesity, Class III, BMI >= 40 01/05/2019 History of gastric bypass 06/19/20142021 Other physical therapy 08/12/2010 2 Other postoperative infection 03/08/2009 Morbid obesity 08/18/2007 03/10/2019 Diabetes mellitus type 2, 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, without complications 01/20/2005 08/21/2021 Last Assessment & Plan: SSI AC scale 1 Carb controlled diet Hold home metformin documented as of this encounter (statuses as of 07/02/2022) [facility] History of Past illness Narrative* Problem Noted Date Resolved Date Obesity, Class III, BMI >= 40 01/05/2019 History of gastric bypass 06/19/20142021 Other physical therapy 08/12/2010 2 Other postoperative infection 03/08/2009 Morbid obesity 08/18/2007 03/10/2019 Diabetes mellitus type 2, 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, without complications 01/20/2005 08/21/2021 Last Assessment & Plan: SSI AC scale 1 Carb controlled diet Hold home metformin documented as of this encounter (statuses as of 07/07/2022) [facility] History of Past illness Narrative* Problem Noted Date Resolved Date Obesity, Class III, BMI >= 40 01/05/2019 History of gastric bypass 06/19/20142021 Other physical therapy 08/12/2010 2 Other postoperative infection 03/08/2009 Morbid obesity 08/18/2007 03/10/2019 Diabetes mellitus type 2, 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, without complications 01/20/2005 08/21/2021 Last Assessment & Plan: SSI AC scale 1 Carb controlled diet Hold home metformin documented as of this encounter (statuses as of 08/03/2022) [facility] History of Past illness Narrative* Problem Noted Date Resolved Date Obesity, Class III, BMI >= 40 01/05/2019 History of gastric bypass 06/19/20142021 Other physical therapy 08/12/2010 2 Other postoperative infection 03/08/2009 Morbid obesity 08/18/2007 03/10/2019 Diabetes mellitus type 2, 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, without complications 01/20/2005 08/21/2021 Last Assessment & Plan: SSI AC scale 1 Carb controlled diet Hold home metformin documented as of this encounter (statuses as of 08/04/2022) [facility] History of Past illness Narrative* Problem Noted Date Resolved Date Obesity, Class III, BMI >= 40 01/05/2019 History of gastric bypass 06/19/20142021 Other physical therapy 08/12/2010 2 Other postoperative infection 03/08/2009 Morbid obesity 08/18/2007 03/10/2019 Diabetes mellitus type 2, 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, without complications 01/20/2005 08/21/2021 Last Assessment & Plan: SSI AC scale 1 Carb controlled diet Hold home metformin documented as of this encounter (statuses as of 08/04/2022) [facility] History of Past illness Narrative* Problem Noted Date Resolved Date Obesity, Class III, BMI >= 40 01/05/2019 History of gastric bypass 06/19/20142021 Other physical therapy 08/12/2010 2 Other postoperative infection 03/08/2009 Morbid obesity 08/18/2007 03/10/2019 Diabetes mellitus type 2, 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, without complications 01/20/2005 08/21/2021 Last Assessment & Plan: SSI AC scale 1 Carb controlled diet Hold home metformin documented as of this encounter (statuses as of 08/04/2022) [facility] History of Past illness Narrative* Problem Noted Date Resolved Date Obesity, Class III, BMI >= 40 01/05/2019 History of gastric bypass 06/19/20142021 Other physical therapy 08/12/2010 2 Other postoperative infection 03/08/2009 Morbid obesity 08/18/2007 03/10/2019 Diabetes mellitus type 2, 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, without complications 01/20/2005 08/21/2021 Last Assessment & Plan: SSI AC scale 1 Carb controlled diet Hold home metformin documented as of this encounter (statuses as of 08/08/2022) [facility] History of Past illness Narrative* Problem Noted Date Resolved Date Obesity, Class III, BMI >= 40 01/05/2019 History of gastric bypass 06/19/20142021 Other physical therapy 08/12/2010 2 Other postoperative infection 03/08/2009 Morbid obesity 08/18/2007 03/10/2019 Diabetes mellitus type 2, 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, without complications 01/20/2005 08/21/2021 Last Assessment & Plan: SSI AC scale 1 Carb controlled diet Hold home metformin documented as of this encounter (statuses as of 08/12/2022) [facility] History of Past illness Narrative* Problem Noted Date Resolved Date Obesity, Class III, BMI >= 40 01/05/2019 History of gastric bypass 06/19/20142021 Pain in joint, shoulder region 04/18/2013 0 08/18/2022 Other physical therapy 08/12/2010 2 Other postoperative infection 03/08/2009 Morbid obesity 08/18/2007 03/10/2019 Diabetes mellitus type 2, 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, without complications 01/20/2005 08/21/2021 Last Assessment & Plan: SSI AC scale 1 Carb controlled diet Hold home metformin documented as of this encounter (statuses as of 08/19/2022) [facility] History of Past illness Narrative* Problem Noted Date Resolved Date Obesity, Class III, BMI >= 40 01/05/2019 History of gastric bypass 06/19/20142021 Pain in joint, shoulder region 04/18/2013 0 08/18/2022 Other physical therapy 08/12/2010 2 Other postoperative infection 03/08/2009 Morbid obesity 08/18/2007 03/10/2019 Diabetes mellitus type 2, 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, without complications 01/20/2005 08/21/2021 Last Assessment & Plan: SSI AC scale 1 Carb controlled diet Hold home metformin documented as of this encounter (statuses as of 08/26/2022) [facility] History of Past illness Narrative* Problem Noted Date Resolved Date Obesity, Class III, BMI >= 40 01/05/2019 History of gastric bypass 06/19/20142021 Pain in joint, shoulder region 04/18/2013 0 08/18/2022 Other physical therapy 08/12/2010 2 Other postoperative infection 03/08/2009 Morbid obesity 08/18/2007 03/10/2019 Diabetes mellitus type 2, 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, without complications 01/20/2005 08/21/2021 Last Assessment & Plan: SSI AC scale 1 Carb controlled diet Hold home metformin documented as of this encounter (statuses as of 08/26/2022) [facility] History of Past illness Narrative* Problem Noted Date Resolved Date Obesity, Class III, BMI >= 40 01/05/2019 History of gastric bypass 06/19/20142021 Pain in joint, shoulder region 04/18/2013 0 08/18/2022 Other physical therapy 08/12/2010 2 Other postoperative infection 03/08/2009 Morbid obesity 08/18/2007 03/10/2019 Diabetes mellitus type 2, 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, without complications 01/20/2005 08/21/2021 Last Assessment & Plan: SSI AC scale 1 Carb controlled diet Hold home metformin documented as of this encounter (statuses as of 09/01/2022) [facility] History of Past illness Narrative* Problem Noted Date Resolved Date Obesity, Class III, BMI >= 40 01/05/2019 History of gastric bypass 06/19/20142021 Pain in joint, shoulder region 04/18/2013 0 08/18/2022 Other physical therapy 08/12/2010 2 Other postoperative infection 03/08/2009 Morbid obesity 08/18/2007 03/10/2019 Diabetes mellitus type 2, 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, without complications 01/20/2005 08/21/2021 Last Assessment & Plan: SSI AC scale 1 Carb controlled diet Hold home metformin documented as of this encounter (statuses as of 09/01/2022) [facility] History of Past illness Narrative* Problem Noted Date Resolved Date Obesity, Class III, BMI >= 40 01/05/2019 History of gastric bypass 06/19/20142021 Pain in joint, shoulder region 04/18/2013 0 08/18/2022 Other physical therapy 08/12/2010 2 Other postoperative infection 03/08/2009 Morbid obesity 08/18/2007 03/10/2019 Diabetes mellitus type 2, 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, without complications 01/20/2005 08/21/2021 Last Assessment & Plan: SSI AC scale 1 Carb controlled diet Hold home metformin documented as of this encounter (statuses as of 09/03/2022) [facility] History of Past illness Narrative* Problem Noted Date Resolved Date Obesity, Class III, BMI >= 40 01/05/2019 History of gastric bypass 06/19/20142021 Pain in joint, shoulder region 04/18/2013 0 08/18/2022 Other physical therapy 08/12/2010 2 Other postoperative infection 03/08/2009 Morbid obesity 08/18/2007 03/10/2019 Diabetes mellitus type 2, 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, without complications 01/20/2005 08/21/2021 Last Assessment & Plan: SSI AC scale 1 Carb controlled diet Hold home metformin documented as of this encounter (statuses as of 09/11/2022) [facility] History of Past illness Narrative* Problem Noted Date Resolved Date Obesity, Class III, BMI >= 40 01/05/2019 History of gastric bypass 06/19/20142021 Pain in joint, shoulder region 04/18/2013 0 08/18/2022 Other physical therapy 08/12/2010 2 Other postoperative infection 03/08/2009 Morbid obesity 08/18/2007 03/10/2019 Diabetes mellitus type 2, 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, without complications 01/20/2005 08/21/2021 Last Assessment & Plan: SSI AC scale 1 Carb controlled diet Hold home metformin documented as of this encounter (statuses as of 09/12/2022) [facility] History of Past illness Narrative* Problem Noted Date Resolved Date Obesity, Class III, BMI >= 40 01/05/2019 History of gastric bypass 06/19/20142021 Pain in joint, shoulder region 04/18/2013 0 08/18/2022 Other physical therapy 08/12/2010 2 Other postoperative infection 03/08/2009 Morbid obesity 08/18/2007 03/10/2019 Diabetes mellitus type 2, 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, without complications 01/20/2005 08/21/2021 Last Assessment & Plan: SSI AC scale 1 Carb controlled diet Hold home metformin documented as of this encounter (statuses as of 09/14/2022) [facility] History of Past illness Narrative* Problem Noted Date Resolved Date Obesity, Class III, BMI >= 40 01/05/2019 History of gastric bypass 06/19/20142021 Pain in joint, shoulder region 04/18/2013 0 08/18/2022 Other physical therapy 08/12/2010 2 Other postoperative infection 03/08/2009 Morbid obesity 08/18/2007 03/10/2019 Diabetes mellitus type 2, 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, without complications 01/20/2005 08/21/2021 Last Assessment & Plan: SSI AC scale 1 Carb controlled diet Hold home metformin documented as of this encounter (statuses as of 09/18/2022) [facility] History of Past illness Narrative* Problem Noted Date Resolved Date Obesity, Class III, BMI >= 40 01/05/2019 History of gastric bypass 06/19/20142021 Pain in joint, shoulder region 04/18/2013 0 08/18/2022 Other physical therapy 08/12/2010 2 Other postoperative infection 03/08/2009 Morbid obesity 08/18/2007 03/10/2019 Diabetes mellitus type 2, 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, without complications 01/20/2005 08/21/2021 Last Assessment & Plan: SSI AC scale 1 Carb controlled diet Hold home metformin documented as of this encounter (statuses as of 09/18/2022) [facility] History of Past illness Narrative* Problem Noted Date Resolved Date Obesity, Class III, BMI >= 40 01/05/2019 History of gastric bypass 06/19/20142021 Pain in joint, shoulder region 04/18/2013 0 08/18/2022 Other physical therapy 08/12/2010 2 Other postoperative infection 03/08/2009 Morbid obesity 08/18/2007 03/10/2019 Diabetes mellitus type 2, 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, without complications 01/20/2005 08/21/2021 Last Assessment & Plan: SSI AC scale 1 Carb controlled diet Hold home metformin documented as of this encounter (statuses as of 09/23/2022) [facility] History of Past illness Narrative* Problem Noted Date Resolved Date Obesity, Class III, BMI >= 40 01/05/2019 History of gastric bypass 06/19/20142021 Pain in joint, shoulder region 04/18/2013 0 08/18/2022 Other physical therapy 08/12/2010 2 Other postoperative infection 03/08/2009 Morbid obesity 08/18/2007 03/10/2019 Diabetes mellitus type 2, 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, without complications 01/20/2005 08/21/2021 Last Assessment & Plan: SSI AC scale 1 Carb controlled diet Hold home metformin documented as of this encounter (statuses as of 09/26/2022) [facility] History of Past illness Narrative* Problem Noted Date Resolved Date Obesity, Class III, BMI >= 40 01/05/2019 History of gastric bypass 06/19/20142021 Pain in joint, shoulder region 04/18/2013 0 08/18/2022 Other physical therapy 08/12/2010 2 Other postoperative infection 03/08/2009 Morbid obesity 08/18/2007 03/10/2019 Diabetes mellitus type 2, 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, without complications 01/20/2005 08/21/2021 Last Assessment & Plan: SSI AC scale 1 Carb controlled diet Hold home metformin documented as of this encounter (statuses as of 09/26/2022) [facility] History of Past illness Narrative* Problem Noted Date Resolved Date Obesity, Class III, BMI >= 40 01/05/2019 History of gastric bypass 06/19/20142021 Pain in joint, shoulder region 04/18/2013 0 08/18/2022 Other physical therapy 08/12/2010 2 Other postoperative infection 03/08/2009 Morbid obesity 08/18/2007 03/10/2019 Diabetes mellitus type 2, 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, without complications 01/20/2005 08/21/2021 Last Assessment & Plan: SSI AC scale 1 Carb controlled diet Hold home metformin documented as of this encounter (statuses as of 09/29/2022) [facility] History of Past illness Narrative* Problem Noted Date Resolved Date Obesity, Class III, BMI >= 40 01/05/2019 History of gastric bypass 06/19/20142021 Pain in joint, shoulder region 04/18/2013 0 08/18/2022 Other physical therapy 08/12/2010 2 Other postoperative infection 03/08/2009 Morbid obesity 08/18/2007 03/10/2019 Diabetes mellitus type 2, 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, without complications 01/20/2005 08/21/2021 Last Assessment & Plan: SSI AC scale 1 Carb controlled diet Hold home metformin documented as of this encounter (statuses as of 10/02/2022) [facility] History of Past illness Narrative* Problem Noted Date Resolved Date Obesity, Class III, BMI >= 40 01/05/2019 History of gastric bypass 06/19/20142021 Pain in joint, shoulder region 04/18/2013 0 08/18/2022 Other physical therapy 08/12/2010 2 Other postoperative infection 03/08/2009 Morbid obesity 08/18/2007 03/10/2019 Diabetes mellitus type 2, 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, without complications 01/20/2005 08/21/2021 Last Assessment & Plan: SSI AC scale 1 Carb controlled diet Hold home metformin documented as of this encounter (statuses as of 10/12/2022) [facility] History of Past illness Narrative* Problem Noted Date Resolved Date Obesity, Class III, BMI >= 40 01/05/2019 History of gastric bypass 06/19/20142021 Pain in joint, shoulder region 04/18/2013 0 08/18/2022 Other physical therapy 08/12/2010 2 Other postoperative infection 03/08/2009 Morbid obesity 08/18/2007 03/10/2019 Diabetes mellitus type 2, 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, without complications 01/20/2005 08/21/2021 Last Assessment & Plan: SSI AC scale 1 Carb controlled diet Hold home metformin documented as of this encounter (statuses as of 10/12/2022) [facility] History of Past illness Narrative* Problem Noted Date Resolved Date Obesity, Class III, BMI >= 40 01/05/2019 History of gastric bypass 06/19/20142021 Pain in joint, shoulder region 04/18/2013 0 08/18/2022 Other physical therapy 08/12/2010 2 Other postoperative infection 03/08/2009 Unspecified pruritic disorder 12/07/2007 Morbid obesity 08/18/2007 03/10/2019 Diabetes mellitus type 2, 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, without complications 01/20/2005 08/21/2021 Last Assessment & Plan: SSI AC scale 1 Carb controlled diet Hold home metformin documented as of this encounter (statuses as of 10/28/2022) [facility] History of Past illness Narrative* Problem Noted Date Resolved Date Obesity, Class III, BMI >= 40 01/05/2019 History of gastric bypass 06/19/20142021 Pain in joint, shoulder region 04/18/2013 0 08/18/2022 Other physical therapy 08/12/2010 2 Other postoperative infection 03/08/2009 Unspecified pruritic disorder 12/07/2007 Morbid obesity 08/18/2007 03/10/2019 Diabetes mellitus type 2, 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, without complications 01/20/2005 08/21/2021 Last Assessment & Plan: SSI AC scale 1 Carb controlled diet Hold home metformin documented as of this encounter (statuses as of 11/06/2022) [facility] History of Past illness Narrative* Problem Noted Date Resolved Date Obesity, Class III, BMI >= 40 01/05/2019 History of gastric bypass 06/19/20142021 Pain in joint, shoulder region 04/18/2013 0 08/18/2022 Other physical therapy 08/12/2010 2 Other postoperative infection 03/08/2009 Unspecified pruritic disorder 12/07/2007 Morbid obesity 08/18/2007 03/10/2019 Diabetes mellitus type 2, 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, without complications 01/20/2005 08/21/2021 Last Assessment & Plan: SSI AC scale 1 Carb controlled diet Hold home metformin documented as of this encounter (statuses as of 11/03/2022) [facility] History of Past illness Narrative* Problem Noted Date Resolved Date Obesity, Class III, BMI >= 40 01/05/2019 History of gastric bypass 06/19/20142021 Pain in joint, shoulder region 04/18/2013 0 08/18/2022 Other physical therapy 08/12/2010 2 Other postoperative infection 03/08/2009 Unspecified pruritic disorder 12/07/2007 Morbid obesity 08/18/2007 03/10/2019 Diabetes mellitus type 2, 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, without complications 01/20/2005 08/21/2021 Last Assessment & Plan: SSI AC scale 1 Carb controlled diet Hold home metformin documented as of this encounter (statuses as of 11/04/2022) [facility] History of Past illness Narrative* Problem Noted Date Diagnosed Date Resolved Date Obesity, Class III, BMI >= 40 01/05/2019 03/10/2019 History of gastric bypass 06/19/2014 Pain in joint, shoulder region 04/18/2013 08/18/2022 Other physical therapy 08/12/201008/21 Other postoperative infection 03/08/2009 03/04/2016 Unspecified pruritic disorder 12/07/2007 10/27/2022 Morbid obesity 08/18/2007 03/10/2019 Diabetes mellitus type 2, 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, without complications 01/20/2005 08/21/2021 Last Assessment & Plan: SSI AC scale 1 Carb controlled diet Hold home metformin documented as of this encounter (statuses as of 12/05/2022) [facility] History of Past illness Narrative* Problem Noted Date Diagnosed Date Resolved Date Obesity, Class III, BMI >= 40 01/05/2019 03/10/2019 History of gastric bypass 06/19/2014 Pain in joint, shoulder region 04/18/2013 08/18/2022 Other physical therapy 08/12/201008/21 Other postoperative infection 03/08/2009 03/04/2016 Unspecified pruritic disorder 12/07/2007 10/27/2022 Morbid obesity 08/18/2007 03/10/2019 Diabetes mellitus type 2, 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, without complications 01/20/2005 08/21/2021 Last Assessment & Plan: SSI AC scale 1 Carb controlled diet Hold home metformin documented as of this encounter (statuses as of 12/25/2022) [facility] History of Past illness Narrative* Problem Noted Date Diagnosed Date Resolved Date Obesity, Class III, BMI >= 40 01/05/2019 03/10/2019 History of gastric bypass 06/19/2014 Pain in joint, shoulder region 04/18/2013 08/18/2022 Other physical therapy 08/12/201008/21 Other postoperative infection 03/08/2009 03/04/2016 Unspecified pruritic disorder 12/07/2007 10/27/2022 Morbid obesity 08/18/2007 03/10/2019 Diabetes mellitus type 2, 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, without complications 01/20/2005 08/21/2021 Last Assessment & Plan: SSI AC scale 1 Carb controlled diet Hold home metformin documented as of this encounter (statuses as of 12/30/2022) [facility] History of Past illness Narrative* Problem Noted Date Diagnosed Date Resolved Date Obesity, Class III, BMI >= 40 01/05/2019 03/10/2019 History of gastric bypass 06/19/2014 Pain in joint, shoulder region 04/18/2013 08/18/2022 Other physical therapy 08/12/201008/21 Other postoperative infection 03/08/2009 03/04/2016 Unspecified pruritic disorder 12/07/2007 10/27/2022 Morbid obesity 08/18/2007 03/10/2019 Diabetes mellitus type 2, 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, without complications 01/20/2005 08/21/2021 Last Assessment & Plan: SSI AC scale 1 Carb controlled diet Hold home metformin documented as of this encounter (statuses as of 01/04/2023) [facility] History of Past illness Narrative* Problem Noted Date Diagnosed Date Resolved Date Obesity, Class III, BMI >= 40 01/05/2019 03/10/2019 History of gastric bypass 06/19/2014 Pain in joint, shoulder region 04/18/2013 08/18/2022 Other physical therapy 08/12/201008/21 Other postoperative infection 03/08/2009 03/04/2016 Unspecified pruritic disorder 12/07/2007 10/27/2022 Morbid obesity 08/18/2007 03/10/2019 Diabetes mellitus type 2, 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, without complications 01/20/2005 08/21/2021 Last Assessment & Plan: SSI AC scale 1 Carb controlled diet Hold home metformin documented as of this encounter (statuses as of 01/09/2023) [facility] History of Past illness Narrative* Problem Noted Date Diagnosed Date Resolved Date Obesity, Class III, BMI >= 40 01/05/2019 03/10/2019 History of gastric bypass 06/19/2014 Pain in joint, shoulder region 04/18/2013 08/18/2022 Other physical therapy 08/12/201008/21 Other postoperative infection 03/08/2009 03/04/2016 Unspecified pruritic disorder 12/07/2007 10/27/2022 Morbid obesity 08/18/2007 03/10/2019 Diabetes mellitus type 2, 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, without complications 01/20/2005 08/21/2021 Last Assessment & Plan: SSI AC scale 1 Carb controlled diet Hold home metformin documented as of this encounter (statuses as of 01/11/2023) [facility] History of Past illness Narrative* Problem Noted Date Diagnosed Date Resolved Date Obesity, Class III, BMI >= 40 01/05/2019 03/10/2019 History of gastric bypass 06/19/2014 Pain in joint, shoulder region 04/18/2013 08/18/2022 Other physical therapy 08/12/201008/21 Other postoperative infection 03/08/2009 03/04/2016 Unspecified pruritic disorder 12/07/2007 10/27/2022 Morbid obesity 08/18/2007 03/10/2019 Diabetes mellitus type 2, 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, without complications 01/20/2005 08/21/2021 Last Assessment & Plan: SSI AC scale 1 Carb controlled diet Hold home metformin documented as of this encounter (statuses as of 01/14/2023) [facility] History of Past illness Narrative* Problem Noted Date Diagnosed Date Resolved Date Obesity, Class III, BMI >= 40 01/05/2019 03/10/2019 History of gastric bypass 06/19/2014 Pain in joint, shoulder region 04/18/2013 08/18/2022 Other physical therapy 08/12/201008/21 Other postoperative infection 03/08/2009 03/04/2016 Unspecified pruritic disorder 12/07/2007 10/27/2022 Morbid obesity 08/18/2007 03/10/2019 Diabetes mellitus type 2, 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, without complications 01/20/2005 08/21/2021 Last Assessment & Plan: SSI AC scale 1 Carb controlled diet Hold home metformin documented as of this encounter (statuses as of 01/27/2023) [facility] History of Past illness Narrative* Problem Noted Date Diagnosed Date Resolved Date Obesity, Class III, BMI >= 40 01/05/2019 03/10/2019 History of gastric bypass 06/19/2014 Pain in joint, shoulder region 04/18/2013 08/18/2022 Other physical therapy 08/12/201008/21 Other postoperative infection 03/08/2009 03/04/2016 Unspecified pruritic disorder 12/07/2007 10/27/2022 Morbid obesity 08/18/2007 03/10/2019 Diabetes mellitus type 2, 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, without complications 01/20/2005 08/21/2021 Last Assessment & Plan: SSI AC scale 1 Carb controlled diet Hold home metformin documented as of this encounter (statuses as of 01/29/2023) [facility] History of Past illness Narrative* Problem Noted Date Diagnosed Date Resolved Date Obesity, Class III, BMI >= 40 01/05/2019 03/10/2019 History of gastric bypass 06/19/2014 Pain in joint, shoulder region 04/18/2013 08/18/2022 Other physical therapy 08/12/201008/21 Other postoperative infection 03/08/2009 03/04/2016 Unspecified pruritic disorder 12/07/2007 10/27/2022 Morbid obesity 08/18/2007 03/10/2019 Diabetes mellitus type 2, 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, without complications 01/20/2005 08/21/2021 Last Assessment & Plan: SSI AC scale 1 Carb controlled diet Hold home metformin documented as of this encounter (statuses as of 01/29/2023) [facility] History of Past illness Narrative* Problem Noted Date Diagnosed Date Resolved Date Obesity, Class III, BMI >= 40 01/05/2019 03/10/2019 History of gastric bypass 06/19/2014 Pain in joint, shoulder region 04/18/2013 08/18/2022 Other physical therapy 08/12/201008/21 Other postoperative infection 03/08/2009 03/04/2016 Unspecified pruritic disorder 12/07/2007 10/27/2022 Morbid obesity 08/18/2007 03/10/2019 Diabetes mellitus type 2, 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, without complications 01/20/2005 08/21/2021 Last Assessment & Plan: SSI AC scale 1 Carb controlled diet Hold home metformin documented as of this encounter (statuses as of 02/02/2023) [facility] History of Past illness Narrative* Problem Noted Date Diagnosed Date Resolved Date Obesity, Class III, BMI >= 40 01/05/2019 03/10/2019 History of gastric bypass 06/19/2014 Pain in joint, shoulder region 04/18/2013 08/18/2022 Other physical therapy 08/12/201008/21 Other postoperative infection 03/08/2009 03/04/2016 Unspecified pruritic disorder 12/07/2007 10/27/2022 Morbid obesity 08/18/2007 03/10/2019 Diabetes mellitus type 2, 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, without complications 01/20/2005 08/21/2021 Last Assessment & Plan: SSI AC scale 1 Carb controlled diet Hold home metformin documented as of this encounter (statuses as of 02/03/2023) [facility] History of Past illness Narrative* Problem Noted Date Diagnosed Date Resolved Date Obesity, Class III, BMI >= 40 01/05/2019 03/10/2019 History of gastric bypass 06/19/2014 Pain in joint, shoulder region 04/18/2013 08/18/2022 Other physical therapy 08/12/201008/21 Other postoperative infection 03/08/2009 03/04/2016 Unspecified pruritic disorder 12/07/2007 10/27/2022 Morbid obesity 08/18/2007 03/10/2019 Diabetes mellitus type 2, 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, without complications 01/20/2005 08/21/2021 Last Assessment & Plan: SSI AC scale 1 Carb controlled diet Hold home metformin documented as of this encounter (statuses as of 02/04/2023) [facility] History of Past illness Narrative* Problem Noted Date Diagnosed Date Resolved Date Obesity, Class III, BMI >= 40 01/05/2019 03/10/2019 History of gastric bypass 06/19/2014 Pain in joint, shoulder region 04/18/2013 08/18/2022 Other physical therapy 08/12/201008/21 Other postoperative infection 03/08/2009 03/04/2016 Unspecified pruritic disorder 12/07/2007 10/27/2022 Morbid obesity 08/18/2007 03/10/2019 Diabetes mellitus type 2, 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, without complications 01/20/2005 08/21/2021 Last Assessment & Plan: SSI AC scale 1 Carb controlled diet Hold home metformin documented as of this encounter (statuses as of 02/20/2023) [facility] History of Past illness Narrative* Problem Noted Date Diagnosed Date Resolved Date Obesity, Class III, BMI >= 40 01/05/2019 03/10/2019 History of gastric bypass 06/19/2014 Pain in joint, shoulder region 04/18/2013 08/18/2022 Other physical therapy 08/12/201008/21 Other postoperative infection 03/08/2009 03/04/2016 Unspecified pruritic disorder 12/07/2007 10/27/2022 Morbid obesity 08/18/2007 03/10/2019 Diabetes mellitus type 2, 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, without complications 01/20/2005 08/21/2021 Last Assessment & Plan: SSI AC scale 1 Carb controlled diet Hold home metformin documented as of this encounter (statuses as of 03/06/2023) [facility] History of Past illness Narrative* Problem Noted Date Diagnosed Date Resolved Date Obesity, Class III, BMI >= 40 01/05/2019 03/10/2019 History of gastric bypass 06/19/2014 Pain in joint, shoulder region 04/18/2013 08/18/2022 Other physical therapy 08/12/201008/21 Other postoperative infection 03/08/2009 03/04/2016 Unspecified pruritic disorder 12/07/2007 10/27/2022 Morbid obesity 08/18/2007 03/10/2019 Diabetes mellitus type 2, 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, without complications 01/20/2005 08/21/2021 Last Assessment & Plan: SSI AC scale 1 Carb controlled diet Hold home metformin documented as of this encounter (statuses as of 03/18/2023) [facility] History of Past illness Narrative* Problem Noted Date Diagnosed Date Resolved Date Obesity, Class III, BMI >= 40 01/05/2019 03/10/2019 History of gastric bypass 06/19/2014 Pain in joint, shoulder region 04/18/2013 08/18/2022 Other physical therapy 08/12/201008/21 Other postoperative infection 03/08/2009 03/04/2016 Unspecified pruritic disorder 12/07/2007 10/27/2022 Morbid obesity 08/18/2007 03/10/2019 Diabetes mellitus type 2, 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, without complications 01/20/2005 08/21/2021 Last Assessment & Plan: SSI AC scale 1 Carb controlled diet Hold home metformin documented as of this encounter (statuses as of 03/30/2023) [facility] History of Past illness Narrative* Problem Noted Date Diagnosed Date Resolved Date Obesity, Class III, BMI >= 40 01/05/2019 03/10/2019 History of gastric bypass 06/19/2014 Pain in joint, shoulder region 04/18/2013 08/18/2022 Other physical therapy 08/12/201008/21 Other postoperative infection 03/08/2009 03/04/2016 Unspecified pruritic disorder 12/07/2007 10/27/2022 Morbid obesity 08/18/2007 03/10/2019 Diabetes mellitus type 2, 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, without complications 01/20/2005 08/21/2021 Last Assessment & Plan: SSI AC scale 1 Carb controlled diet Hold home metformin documented as of this encounter (statuses as of 04/03/2023) [facility] History of Past illness Narrative* Problem Noted Date Diagnosed Date Resolved Date Obesity, Class III, BMI >= 40 01/05/2019 03/10/2019 History of gastric bypass 06/19/2014 Pain in joint, shoulder region 04/18/2013 08/18/2022 Other physical therapy 08/12/201008/21 Other postoperative infection 03/08/2009 03/04/2016 Unspecified pruritic disorder 12/07/2007 10/27/2022 Morbid obesity 08/18/2007 03/10/2019 Diabetes mellitus type 2, 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, without complications 01/20/2005 08/21/2021 Last Assessment & Plan: SSI AC scale 1 Carb controlled diet Hold home metformin documented as of this encounter (statuses as of 05/04/2023) [facility] History of Past illness Narrative* Problem Noted Date Diagnosed Date Resolved Date Obesity, Class III, BMI >= 40 01/05/2019 03/10/2019 History of gastric bypass 06/19/2014 Pain in joint, shoulder region 04/18/2013 08/18/2022 Other physical therapy 08/12/201008/21 Other postoperative infection 03/08/2009 03/04/2016 Unspecified pruritic disorder 12/07/2007 10/27/2022 Morbid obesity 08/18/2007 03/10/2019 Diabetes mellitus type 2, 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, without complications 01/20/2005 08/21/2021 Last Assessment & Plan: SSI AC scale 1 Carb controlled diet Hold home metformin documented as of this encounter (statuses as of 05/14/2023) [facility] Diagnosis 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), type 2 with neurological complications ([facility]) Type II or unspecified type diabetes mellitus with neurological manifestations, not stated as uncontrolled Radiculopathy of thoracic region Thoracic or lumbosacral neuritis or radiculitis, unspecified [facility] Diagnosis Pernicious anemia- Primary [facility] Diagnosis Radiculopathy of thoracic region Thoracic or lumbosacral neuritis or radiculitis, unspecified [facility] Diagnosis Shortness of breath on exertion- Primary Shortness of breath Irregular heart beat Cardiac dysrhythmia, unspecified Fatigue, unspecified type Elevated ferritin Other abnormal blood chemistry [facility] Diagnosis Irregular heart beat- Primary Cardiac dysrhythmia, unspecified Shortness of breath on exertion Shortness of breath Fatigue, unspecified type Skin tear of left forearm without complication, initial encounter Lightheadedness Dizziness and giddiness [facility] Diagnosis 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 [facility] Diagnosis Chronic left SI joint pain- Primary Disorders of sacrum Sacroiliac joint pain Disorders of sacrum SI joint arthritis Sacroiliitis, not elsewhere classified Chronic left SI joint pain Disorders of sacrum Sacroiliac joint pain Disorders of sacrum SI joint arthritis Sacroiliitis, not elsewhere classified [facility] Diagnosis Dyspnea on exertion- Primary Other dyspnea and respiratory abnormality Chronic left SI joint pain Disorders of sacrum Sacroiliac joint pain Disorders of sacrum SI joint arthritis Sacroiliitis, not elsewhere classified [facility] Diagnosis Pernicious anemia- Primary Chronic left SI joint pain Disorders of sacrum Sacroiliac joint pain Disorders of sacrum SI joint arthritis Sacroiliitis, not elsewhere classified [facility] Diagnosis Acute UTI- Primary Urinary tract infection, site not specified Urinary frequency Glucosuria Glycosuria [facility] Diagnosis Elevated ferritin- Primary Other abnormal blood chemistry [facility] Diagnosis Pernicious anemia- Primary [facility] Diagnosis Chronic left SI joint pain- Primary Disorders of sacrum Sacroiliac joint pain Disorders of sacrum SI joint arthritis Sacroiliitis, not elsewhere classified Chronic SI joint pain Disorders of sacrum [facility]* Diagnosis Fatigue, unspecified type- Primary Iron deficiency Iron deficiency anemia, unspecified Chronic left SI joint pain Disorders of sacrum Sacroiliac joint pain Disorders of sacrum SI joint arthritis Sacroiliitis, not elsewhere classified [facility] Diagnosis B12 deficiency- Primary Other B-complex deficiencies Chronic left SI joint pain Disorders of sacrum Sacroiliac joint pain Disorders of sacrum SI joint arthritis Sacroiliitis, not elsewhere classified [facility] Diagnosis Iron deficiency- Primary Iron deficiency anemia, unspecified [facility] Diagnosis Chronic left SI joint pain- Primary Disorders of sacrum Sacroiliac joint pain Disorders of sacrum SI joint arthritis Sacroiliitis, not elsewhere classified Chronic left SI joint pain Disorders of sacrum Sacroiliac joint pain Disorders of sacrum SI joint arthritis Sacroiliitis, not elsewhere classified [facility] Diagnosis Need for influenza vaccination- Primary Need for prophylactic vaccination and inoculation against influenza Pernicious anemia Chronic left SI joint pain Disorders of sacrum Sacroiliac joint pain Disorders of sacrum SI joint arthritis Sacroiliitis, not elsewhere classified [facility] Diagnosis Pernicious anemia- Primary Need for vaccination Need for prophylactic vaccination and inoculation against unspecified single disease [facility] Diagnosis Chronic left SI joint pain- Primary Disorders of sacrum [facility] Diagnosis Chronic left SI joint pain- Primary Disorders of sacrum Sacroiliac joint pain Disorders of sacrum Chronic left SI joint pain Disorders of sacrum Sacroiliac joint pain Disorders of sacrum [facility] Diagnosis 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Pruritus Unspecified pruritic disorder Candidal vulvitis Candidiasis of vulva and vagina Lichen sclerosus 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 Disorders of sacrum Sacroiliac joint pain Disorders of sacrum [facility] Diagnosis Radiculopathy of thoracic region Thoracic or lumbosacral neuritis or radiculitis, unspecified Chronic left SI joint pain Disorders of sacrum Sacroiliac joint pain Disorders of sacrum [facility]* Diagnosis Fatigue, unspecified type- Primary Primary hypertension Unspecified essential hypertension Hypoalbuminemia Other disorders of plasma protein metabolism Dietary iron deficiency without anemia Other nutritional deficiency Elevated ferritin Other abnormal blood chemistry Class 3 severe obesity due to excess calories with body mass index (BMI) of 40.0 to 44.9 in adult, unspecified whether serious comorbidity present (HCC) [facility]* Diagnosis Iron deficiency Iron deficiency anemia, unspecified [facility]* Diagnosis Pernicious anemia- Primary [facility]* Diagnosis FIELD (dyspnea on exertion)- Primary Other dyspnea and respiratory abnormality Dietary iron deficiency without anemia Other nutritional deficiency Grade I diastolic dysfunction Chronic cough Cough Renal calculus, left Calculus of kidney Primary hypertension Unspecified essential hypertension Hypoalbuminemia Other disorders of plasma protein metabolism DM (diabetes mellitus), type 2 with neurological complications ([facility]) Type II or unspecified type diabetes mellitus with neurological manifestations, not stated as uncontrolled B12 deficiency Other B-complex deficiencies Vitamin D deficiency Unspecified vitamin D deficiency Irregular heart rhythm Cardiac dysrhythmia, unspecified Memory difficulty Memory loss Class 2 severe obesity due to excess calories with serious comorbidity and body mass index (BMI) of 39.0 to 39.9 in adult ([facility]) History of Jordin-en-Y gastric bypass Bariatric surgery status Renal calculus, left Calculus of kidney [facility] Diagnosis FIELD (dyspnea on exertion) Other dyspnea and respiratory abnormality Chronic cough Cough Renal calculus, left Calculus of kidney [facility] Diagnosis FIELD (dyspnea on exertion) Other dyspnea and respiratory abnormality Chronic cough Cough Renal calculus, left Calculus of kidney [facility]* Diagnosis Lumbosacral facet joint syndrome- Primary Other symptoms referable to back Spondylolisthesis of lumbar region Acquired spondylolisthesis Spinal stenosis of lumbar region, unspecified whether neurogenic claudication present Renal calculus, left Calculus of kidney [facility] Diagnosis Pernicious anemia- Primary Renal calculus, left Calculus of kidney [facility]* Diagnosis Crushing injury of right middle finger, initial encounter- Primary Open fracture of tuft of distal phalanx of finger Open fracture of distal phalanx or phalanges of hand Nausea Nausea alone Renal calculus, left Calculus of kidney [facility]* Diagnosis Finger injury, right, initial encounter- Primary Renal calculus, left Calculus of kidney [facility]* Diagnosis Spinal stenosis of lumbar region, unspecified whether neurogenic claudication present- Primary Lumbar spondylosis Lumbosacral spondylosis without myelopathy Radiculopathy, lumbar region Thoracic or lumbosacral neuritis or radiculitis, unspecified Spondylolisthesis of lumbar region Acquired spondylolisthesis Spinal stenosis of lumbar region, unspecified whether neurogenic claudication present Lumbar spondylosis Lumbosacral spondylosis without myelopathy Radiculopathy, lumbar region Thoracic or lumbosacral neuritis or radiculitis, unspecified Spondylolisthesis of lumbar region Acquired spondylolisthesis documented [facility]* Diagnosis Kidney stone- Primary Calculus of kidney Spinal stenosis of lumbar region, unspecified whether neurogenic claudication present Lumbar spondylosis Lumbosacral spondylosis without myelopathy Radiculopathy, lumbar region Thoracic or lumbosacral neuritis or radiculitis, unspecified Spondylolisthesis of lumbar region Acquired spondylolisthesis documented [facility]* Diagnosis Crushing injury of right middle finger, sequela- Primary Renal calculus, left Calculus of kidney Spinal stenosis of lumbar region, unspecified whether neurogenic claudication present Lumbar spondylosis Lumbosacral spondylosis without myelopathy Radiculopathy, lumbar region Thoracic or lumbosacral neuritis or radiculitis, unspecified Spondylolisthesis of lumbar region Acquired spondylolisthesis documented in this encounter [facility] note* Diagnosis Dysuria- Primary Spinal stenosis of lumbar region, unspecified whether neurogenic claudication present Lumbar spondylosis Lumbosacral spondylosis without myelopathy Radiculopathy, lumbar region Thoracic or lumbosacral neuritis or radiculitis, unspecified Spondylolisthesis of lumbar region Acquired spondylolisthesis documented in this encounter [facility] note* Diagnosis Pernicious anemia- Primary Spinal stenosis of lumbar region, unspecified whether neurogenic claudication present Lumbar spondylosis Lumbosacral spondylosis without myelopathy Radiculopathy, lumbar region Thoracic or lumbosacral neuritis or radiculitis, unspecified Spondylolisthesis of lumbar region Acquired spondylolisthesis documented in this encounter [facility] note* Diagnosis Spondylolisthesis of lumbar region Acquired spondylolisthesis Open compression fracture of L1 lumbar vertebra with routine healing, subsequent encounter Anxiety disorder, unspecified type documented in this encounter [facility] note* Diagnosis Spinal stenosis of lumbar region, unspecified whether neurogenic claudication present- Primary Lumbar spondylosis Lumbosacral spondylosis without myelopathy Radiculopathy, lumbar region Thoracic or lumbosacral neuritis or radiculitis, unspecified Spondylolisthesis of lumbar region Acquired spondylolisthesis documented in this encounter [facility] note* Diagnosis Pernicious anemia- Primary [facility]* Diagnosis DM (diabetes mellitus), 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, not stated as uncontrolled documented in this encounter [facility] note* Diagnosis Spinal stenosis of lumbar region, unspecified whether neurogenic claudication present Lumbar spondylosis Lumbosacral spondylosis without myelopathy Radiculopathy, lumbar region Thoracic or lumbosacral neuritis or radiculitis, unspecified Spondylolisthesis of lumbar region Acquired spondylolisthesis [facility]* Diagnosis Irregular heart rhythm- Primary Cardiac dysrhythmia, unspecified FIELD (dyspnea on exertion) Other dyspnea and respiratory abnormality Bilateral carotid artery stenosis Occlusion and stenosis of carotid artery without mention of cerebral infarction Premature atrial complexes Supraventricular premature beats Dietary iron deficiency without anemia Other nutritional deficiency Vitamin D deficiency Unspecified vitamin D deficiency Elevated ferritin Other abnormal blood chemistry B12 deficiency Other B-complex deficiencies Other fatigue [facility]* Diagnosis Pernicious anemia- Primary [facility]* Diagnosis Spinal stenosis of lumbar region, unspecified whether neurogenic claudication present- Primary Lumbar spondylosis Lumbosacral spondylosis without myelopathy Spondylolisthesis of lumbar region Acquired spondylolisthesis Radiculopathy, lumbar region Thoracic or lumbosacral neuritis or radiculitis, unspecified documented [facility]* Diagnosis Spinal stenosis of lumbar region, unspecified whether neurogenic claudication present- Primary Lumbar spondylosis Lumbosacral spondylosis without myelopathy Spondylolisthesis of lumbar region Acquired spondylolisthesis Radiculopathy, lumbar region Thoracic or lumbosacral neuritis or radiculitis, unspecified [facility]* Diagnosis Spinal stenosis of lumbar region, unspecified whether neurogenic claudication present- Primary Lumbar spondylosis Lumbosacral spondylosis without myelopathy Spondylolisthesis of lumbar region Acquired spondylolisthesis Radiculopathy, lumbar region Thoracic or lumbosacral neuritis or radiculitis, unspecified documented in this encounter [facility] note* Diagnosis Spondylolisthesis of lumbar region- Primary Acquired spondylolisthesis Chronic SI joint pain Disorders of sacrum Spinal stenosis of lumbar region, unspecified whether neurogenic claudication present Pain in left hip Pain in joint, pelvic region and thigh Radiculopathy, lumbar region Thoracic or lumbosacral neuritis or radiculitis, unspecified documented in this encounter [facility] note* Diagnosis Spondylolisthesis of lumbar region- Primary Acquired spondylolisthesis Spinal stenosis of lumbar region, unspecified whether neurogenic claudication present Radiculopathy, lumbar region Thoracic or lumbosacral neuritis or radiculitis, unspecified Spondylolisthesis of lumbar region Acquired spondylolisthesis Spinal stenosis of lumbar region, unspecified whether neurogenic claudication present Radiculopathy, lumbar region Thoracic or lumbosacral neuritis or radiculitis, unspecified documented in this encounter [facility] note* Diagnosis Spinal stenosis of lumbar region, unspecified whether neurogenic claudication present- Primary Lumbar spondylosis Lumbosacral spondylosis without myelopathy Spondylolisthesis of lumbar region Acquired spondylolisthesis Radiculopathy, lumbar region Thoracic or lumbosacral neuritis or radiculitis, unspecified Spondylolisthesis of lumbar region Acquired spondylolisthesis Spinal stenosis of lumbar region, unspecified whether neurogenic claudication present Radiculopathy, lumbar region Thoracic or lumbosacral neuritis or radiculitis, unspecified documented in this encounter [facility] note* Diagnosis Radiculopathy of thoracic region Thoracic or lumbosacral neuritis or radiculitis, unspecified Spondylolisthesis of lumbar region Acquired spondylolisthesis Spinal stenosis of lumbar region, unspecified whether neurogenic claudication present Radiculopathy, lumbar region Thoracic or lumbosacral neuritis or radiculitis, unspecified documented in this encounter [facility] note* Diagnosis Pernicious anemia- Primary Spondylolisthesis of lumbar region Acquired spondylolisthesis Spinal stenosis of lumbar region, unspecified whether neurogenic claudication present Radiculopathy, lumbar region Thoracic or lumbosacral neuritis or radiculitis, unspecified documented in this encounter [facility] note* Diagnosis Spinal stenosis of lumbar region, unspecified whether neurogenic claudication present- Primary Lumbar spondylosis Lumbosacral spondylosis without myelopathy Spondylolisthesis of lumbar region Acquired spondylolisthesis Radiculopathy, lumbar region Thoracic or lumbosacral neuritis or radiculitis, unspecified [facility]* Diagnosis Current moderate episode of major depressive disorder, unspecified whether recurrent (HCC)- Primary Anxiety disorder, unspecified type Radiculopathy, lumbar region Thoracic or lumbosacral neuritis or radiculitis, unspecified Chronic SI joint pain Disorders of sacrum Single subsegmental pulmonary embolism without acute cor pulmonale (HCC) Type 2 diabetes mellitus with peripheral neuropathy (HCC) [facility]* Diagnosis Spinal stenosis of lumbar region, unspecified whether neurogenic claudication present- Primary Lumbar spondylosis Lumbosacral spondylosis without myelopathy Spondylolisthesis of lumbar region Acquired spondylolisthesis Radiculopathy, lumbar region Thoracic or lumbosacral neuritis or radiculitis, unspecified documented in this encounter [facility] note* Diagnosis Pernicious anemia- Primary [facility] Diagnosis 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 documented in this encounter [facility] note* Diagnosis DM (diabetes mellitus), 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 Type II or unspecified type diabetes mellitus with neurological manifestations, not stated as uncontrolled Type 2 diabetes mellitus with peripheral neuropathy (HCC) [facility]* Diagnosis Pernicious anemia- Primary [facility]* Diagnosis 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 [facility]* Diagnosis FIELD (dyspnea on exertion)- Primary Other dyspnea and respiratory abnormality Irregular heart rhythm Cardiac dysrhythmia, unspecified Premature atrial complexes Supraventricular premature beats PAC (premature atrial contraction) Supraventricular premature beats Mixed hyperlipidemia Carotid artery stenosis without cerebral infarction, bilateral Type 2 diabetes mellitus with peripheral neuropathy (HCC) Atypical chest pain Other chest pain [facility] Diagnosis Irregular heart rhythm Cardiac dysrhythmia, unspecified FIELD (dyspnea on exertion) Other dyspnea and respiratory abnormality Premature atrial complexes Supraventricular premature beats PAC (premature atrial contraction) Supraventricular premature beats Mixed hyperlipidemia Carotid artery stenosis without cerebral infarction, bilateral Type 2 diabetes mellitus with peripheral neuropathy (HCC) Atypical chest pain Other chest pain [facility]* Diagnosis Pernicious anemia- Primary [facility]* Diagnosis Hypotension due to drugs- Primary Other iatrogenic hypotension Chronic fatigue Other malaise and fatigue Memory deficit Memory loss Obesity, Class II, BMI 35-39.9 Obesity, unspecified Need for influenza vaccination Need for prophylactic vaccination and inoculation against influenza Encounter for therapeutic drug monitoring Type 2 diabetes mellitus with peripheral neuropathy (HCC) Mixed hyperlipidemia [facility]* Diagnosis Pernicious anemia- Primary [facility]* Diagnosis 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[facility]* Diagnosis Pernicious anemia- Primary [facility]* Diagnosis 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 [facility]* Diagnosis Kidney stone Calculus of kidney [facility]* Diagnosis Memory difficulties- Primary Memory loss Vitamin D deficiency Unspecified vitamin D deficiency Chronic cough Cough Type 2 diabetes mellitus with peripheral neuropathy (HCC) Breast cancer screening by mammogram Encounter for immunization Need for other specified prophylactic vaccination against single bacterial disease [facility] Outpatient Procedure (Routine) - Waiting for Online Response Specialty Diagnoses / Procedures Referred By Liliana silva Referred To [facility] Diagnoses Shortness of breath on exertion Irregular heart beat Fatigue, unspecified type Procedures ECHO ECHO TTHRC R-T 2D W/WOM-MODE COMPL SPEC&COLR D Comfort Patterson APRN.TIME STUDY CLERK [address] [place] [address] [facility] [place] [address] [place] [address] Referral ID Status Reason Start Date Expiration Date Visits Requested Visits Authorized [id number] Waiting for Online Response Auto-Generat ed Referral 10/28/2021 10/07/2022 1 1 * Consult, Test, Treat (Routine) - Pending Review Specialty Diagnoses / Procedures Referred By Liliana silva Referred To Contact Cardiology Diagnoses Shortness of breath on exertion Irregular heart beat Fatigue, unspecified type Procedures CONSULT TO CARDIOLOGY OFFICE/OUTPATIENT [facility] 60-74 MINUTES Comfort Patterson APRN.TIME STUDY CLERK [address] [place] [address] Referral ID Status Reason Start Date Expiration Date Visits Requested Visits Authorized [id number] Pending Review PCP Requested Referral 10/28/2021 10/07/2022 1 1 [facility] for referral (narrative)* Outpatient Procedure (Routine) - Pending Review Specialty Diagnoses / Procedures Referred By Contac t Referred To Contact [facility] [place] Diagnoses Irregular heart beat Procedures ECG COMPLETE ECG ROUTINE ECG W/LEAST 12 LDS W/I&R Iban Soto MD [address] [place] [address] [address] Referral ID Status Reason Start Date Expiration Date Visits Requested Visits Authorized [id number] Pending Review Auto-Generat ed Referral 10/03/2021 10/03/2022 1 1 [facility] for referral (narrative)* Outpatient Procedure (Routine) - Closed Specialty Diagnoses / Procedures Referred By Contac t Referred To Contact [facility] [place] Diagnoses Dyspnea on exertion Procedures ECG COMPLETE ECG ROUTINE ECG W/LEAST 12 LDS W/I&R Gamaliel Alegre MD [address] [place] [address] [place] [id number] Referral ID Status Reason Start Date Expiration Date V isits Requested Visits Authorized [id number] Closed Auto-Generate d Referral 11/02/2021 11/02/2022 1 1 [facility] for referral (narrative)* Outpatient Procedure (Routine) - Pending Review Specialty Diagnoses / Procedures Referred By Contac t Referred To Contact [facility] Diagnoses FIELD (dyspnea on exertion) Chronic cough Procedures LUNG VOLUMES Guillaume Dominguez MD [address] [place] [address] [facility] [place] [address] [place] [address] Referral ID Status Reason Start Date Expiration Date Visits Requested Visits Authorized [id number] Pending Review Auto-Generat ed Referral 2 05/27/2023 1 1 * Outpatient Procedure (Routine) - Authorized Specialty Diagnoses / Procedures Referred By Contac t Referred To Contact [facility] Diagnoses FIELD (dyspnea on exertion) Chronic cough Procedures SPIROMETRY WITH DILATOR IF OBSTRUCTED BRNCDILAT RSPSE SPMTRY PRE&POST-BRNCDILAT ADMGuillaume Lopes MD [address] [place], [place] [id number] [place] [address] Referral ID Status Reason Start Date Expiration Date Visits Requested Visits Authorized [id number] Authorized Auto-Generat ed Referral 2 05/27/2023 1 1 * Outpatient Procedure (Routine) - Pending Review Specialty Diagnoses / Procedures Referred By Contac t Referred To [facility] Diagnoses Irregular heart rhythm Procedures ECG COMPLETE ECG ROUTINE ECG W/LEAST 12 LDS W/I&R Guillaume Dominguez MD [address] [place] [address] [facility] [place] [address] [place] [address] Referral ID Status Reason Start Date Expiration Date Visits Requested Visits Authorized [id number] Pending Review Auto-Generat ed Referral 2 04/27/2023 1 1 [facility] Diagnostic Procedure Only (Routine) - Pending Review Specialty Diagnoses / Procedures Referred By Contac t Referred To Contact XR IMAGING Diagnoses Finger injury, right, initial encounter Procedures XR DIGIT GENERAL 3V FRONTAL/LAT/OBL RIGHT RADEX FINGR MINIMUM 2 VIEWS Eren Robbins MD [address] [place] [address] Xr Imaging Referral ID Status Reason Start Date Expiration Date Visits Requested Visits Authorized [id number] Pending Review Auto-Generat ed Referral 2 06/20/2023 1 1 [facility] for referral (narrative)* Diagnostic Procedure Only (Routine) - Pending Review Specialty Diagnoses / Procedures Referred By Contac t Referred To Contact XR IMAGING Diagnoses Kidney stone Procedures XR ABDOMEN 1V SUPINE RADIOLOGIC EXAM ABDOMEN 1 VIEW Dilma Patel Jr., MD [facility] [place] [address] Xr Imaging Referral ID Status Reason Start Date Expiration Date Visits Requested Visits Authorized [id number] Pending Review Auto-Generat ed Referral 09/09/2022 07/11/2023 1 1 [facility] for referral (narrative)* Outpatient Procedure (Routine) - Pending Review Specialty Diagnoses / Procedures Referred By Liliana t Referred To Contact [facility] Diagnoses Irregular heart rhythm FIELD (dyspnea on exertion) Premature atrial complexes PAC (premature atrial contraction) Mixed hyperlipidemia Carotid artery stenosis without cerebral infarction, bilateral Type 2 diabetes mellitus with peripheral neuropathy (HCC) Atypical chest pain Procedures ECHO ECHO TTHRC R-T 2D W/WOM-MODE COMPL SPEC&COLR D Dilma Meng DO [address] [address] [facility] [place] [address] [place] [address] Referral ID Status Reason Start Date Expiration Date Visits Requested Visits Authorized [id number] Pending Review Auto-Generat ed Referral 01/11/2023 01/11/2024 1 1 * Diagnostic Procedure Only (Routine) - Pending Review Specialty Diagnoses / Procedures Referred By Contact Referred To Contact [facility]CULAR [facility]AL [facility] Diagnoses Irregular heart rhythm FIELD (dyspnea on exertion) Premature atrial complexes PAC (premature atrial contraction) Mixed hyperlipidemia Carotid artery stenosis without cerebral infarction, bilateral Type 2 diabetes mellitus with peripheral neuropathy (HCC) Atypical chest pain Procedures NM CARDIAC PERF STRESS/PHARM MYOCARDIAL SPECT MULTIPLE STUDIES Dilma Meng, DO [address] [address] [facility] [address] [place] [address] Referral ID Status Reason Start Date Expiration Date Visits Requested Visits Authorized [id number] Pending Review Auto-Generat ed Referral 01/11/2023 02/10/2024 1 1 [facility] for referral (narrative)* Diagnostic Procedure Only (Routine) - Closed Specialty Diagnoses / Procedures Referred By Contact Referred To Contact [facility] Diagnoses Irregular heart rhythm FIELD (dyspnea on exertion) Premature atrial complexes PAC (premature atrial contraction) Mixed hyperlipidemia Carotid artery stenosis without cerebral infarction, bilateral Type 2 diabetes mellitus with peripheral neuropathy (HCC) Atypical chest pain Procedures NM CARDIAC PERF STRESS/PHARM MYOCARDIAL SPECT MULTIPLE STUDIES Dilma Meng, DO [address] [address] [facility] [address] [place] [address] Referral ID Status Reason Start Date Expiration Date V isits Requested Visits Authorized [id number] Closed Auto-Generate d Referral 01/12/2023 04/12/2023 1 1 [facility] for referral (narrative)* Diagnostic Procedure Only (Routine) - Closed Specialty Diagnoses / Procedures Referred By Contac t Referred To Contact XR IMAGING Diagnoses Kidney stone Procedures XR ABDOMEN 1V SUPINE RADIOLOGIC EXAM ABDOMEN 1 VIEW Dilma Patel Jr., MD [address] [place] [address] X[facility] Imaging [place] [address] Referral ID Status Reason Start Date Expiration Date V isits Requested Visits Authorized [id number] Closed Auto-Generate d Referral 09/23/2022 10/22/2023 1 1 [facility] for visit Narrative* Diagnostic Procedure Only (Routine) - Closed Specialty Diagnoses / Procedures Referred By Contact Referred To Contact [facility] Diagnoses Irregular heart rhythm FIELD (dyspnea on exertion) Premature atrial complexes PAC (premature atrial contraction) Mixed hyperlipidemia Carotid artery stenosis without cerebral infarction, bilateral Type 2 diabetes mellitus with peripheral neuropathy (HCC) Atypical chest pain Procedures NM CARDIAC PERF STRESS/PHARM MYOCARDIAL SPECT MULTIPLE STUDIES Dilma Meng DO [address] [address] [facility] [address] [place] [address] Referral ID Status Reason Start Date Expiration Date V isits Requested Visits Authorized [id number] Closed Auto-Generate d Referral 01/12/2023 04/12/2023 1 1 [facility] for visit Narrative* Diagnostic Procedure Only (Routine) - Closed Specialty Diagnoses / Procedures Referred By Contac t Referred To Contact XR IMAGING Diagnoses Kidney stone Procedures XR ABDOMEN 1V SUPINE RADIOLOGIC EXAM ABDOMEN 1 VIEW Dilma Patel Jr., MD [address] [place] [address] [place] [id number] Referral ID Status Reason Start Date Expiration Date V isits Requested Visits Authorized [id number] Closed Auto-Generate d Referral 09/23/2022 10/22/2023 1 1 [facility] Family History No Family History Records FoundNo Family History Records FoundNo Family History Records FoundNo Family History Records FoundNo Family History Records FoundNo Family History Records Found Advance Directives No Advanced Directives Records FoundDocuments on File Type Date Recorded 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 Directive(s) 08/16/2020 1:32 PM Advance Directive(s) 08/06/2020 9:17 AM Advance Directive(s) 05/05/2019 11:23 AM Advance Directive(s) 05/05/2019 11:27 AM Advance Directive(s) 03/17/2019 2:21 PM Advance Directive(s) 12/15/2018 11:36 AM Advance Directive(s) 11/23/2018 2:18 PM Advance Directive(s) 10/04/2018 7:45 AM Advance Directive(s) 11/09/2017 7:52 AM Documents on File Type Date 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 Directive(s) 08/16/2020 1:32 PM Advance Directive(s) 08/06/2020 9:17 AM Advance Directive(s) 05/05/2019 11:23 AM Advance Directive(s) 05/05/2019 11:27 AM Advance Directive(s) 03/17/2019 2:21 PM Advance Directive(s) 12/15/2018 11:36 AM Advance Directive(s) 11/23/2018 2:18 PM Advance Directive(s) 10/04/2018 7:45 AM Advance Directive(s) 11/09/2017 7:52 AM Documents on File Type Date 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(s) 11/21/2021 12:55 PM Advance Directive(s) 11/06/2021 3:24 PM Advance Directive(s) 08/16/2020 1:32 PM Advance Directive(s) 08/06/2020 9:17 AM Advance Directive(s) 05/05/2019 11:23 AM Advance Directive(s) 05/05/2019 11:27 AM Advance Directive(s) 03/17/2019 2:21 PM Advance Directive(s) 12/15/2018 11:36 AM Advance Directive(s) 11/23/2018 2:18 PM Advance Directive(s) 10/04/2018 7:45 AM Advance Directive(s) 11/09/2017 7:52 AM Documents on File Type Date Recorded 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 Directive(s) 08/28/2022 2:42 PM Documents on File Type Date Recorded 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 Directive(s) 08/28/2022 2:42 PM Procedure Findings Note HNO ID: [id number] Author: Candie Rosa Eve Service: Urogynecology Author Type: Physician Type: Operative Report Filed: 06/12/2019 9:29 AM Note Text: OPERATIVE / PROCEDURE NOTE LOG ID: [id number] Surgery/Procedure Date: 06/12/2019 Incision/Procedure Start Time: 7:46 AM Incision Close/Procedure End Time: 8:06 AM Surgeon(s)/Proceduralist(s) and Gear Machine Operator(s): Surgeon(s) and Role: * Esther Prado - Yang Waite MD (Fel) - Fellow No Additional Staff Procedure(s): Exam under anesthesia, Vulvar biopsies Anesthesia: MAC Findings: 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 Extensive erythema with beefy red and inflammed appearing labia majora and perianal skin in a [id number]-[id number] pattern. Skin is shiny and taut. Mildly thickened, white, stellate lesions noted at 9:00 and 3:00 on the labia majora (each approximately 8 mm in size) and 7:00 at the region of the labia minora about 1.5 cm distal to the introitus (approx 10 mm in size), and las (more content not included)... Note HNO ID: [id number] Author: Shelley Waite MD (Fel) Service: Urogynecology Author Type: Fellow Type: Brief Op Note Filed: 06/12/2019 8:26 AM Note Text: BRIEF OPERATIVE / PROCEDURE NOTE LOG ID: [id number] Surgery/Procedure Date: 06/12/2019 Incision/Procedure Start Time: 7:46 AM Incision Close/Procedure End Time: 8:06 AM Surgeon(s)/Proceduralist(s) and Gear Machine Operator(s): Surgeon(s) and Role: * Esther Prado - Yang Waite MD (Fel) - Fellow No Additional Staff Procedure(s): Exam under anesthesia, Vulvar biopsies Anesthesia: MAC Findings: 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 Extensive erythema with beefy red and inflammed appearing labia majora and perianal skin in a opcasg-zx-iixux pattern. Mildly thickened, white, stellate lesions noted at 9:00 and 3:00 on the labia majora (each approximately 8 mm in size) and 7:00 at the region of the labia minora about 1.5 cm distal to the introitus (approx 10 mm in size), and lastly one at 4:00 (more content not included)... Medications Administered Section Active Administered Medications - up to 3 most recent administrations Medication Order MAR Action Action Date Dose Rate Site cyanocobalamin 1,000 mcg injection 1,000 mcg, INTRAMUSCULAR, EVERY 1 MONTH, 12 doses, First dose on Wed02/04/21 at 0000, Last dose on Wed12/31/21 at 0000 Given 09/01/2021 1:15 PM EDT 1,000 mcg Deltoid, Left Active Administered Medications - up to 3 most recent administrations Medication Order MAR Action Action Date Dose Rate Site cyanocobalamin 1,000 mcg injection 1,000 mcg, INTRAMUSCULAR, EVERY 1 MONTH, 12 doses, First dose on Wed02/04/21 at 0000, Last dose on Wed12/31/21 at 0000 Given 11/03/2021 1:13 PM EDT 1,000 mcg Deltoid, Left Active Administered Medications - up to 3 most recent administrations Medication Order MAR Action Action Date Dose Rate Site cyanocobalamin 1,000 mcg injection 1,000 mcg, INTRAMUSCULAR, EVERY 1 MONTH, 12 doses, First dose on Wed02/04/21 at 0000, Last dose on Wed12/31/21 at 0000 Given 01/05/2022 1:05 PM EDT 1,000 mcg Deltoid, Left Active Administered Medications - up to 3 most recent administrations Medication Order MAR Action Action Date Dose Rate Site cyanocobalamin 1,000 mcg injection 1,000 mcg, INTRAMUSCULAR, EVERY 1 MONTH, 12 doses, First dose on Wed02/03/22 at 0000, Last dose on Wed12/30/22 at 0000 Given 02/10/2022 1:39 PM EDT 1,000 mcg Deltoid, Left Active Administered Medications - up to 3 most recent administrations Medication Order MAR Action Action Date Dose Rate Site cyanocobalamin 1,000 mcg injection 1,000 mcg, INTRAMUSCULAR, EVERY 1 MONTH, 12 doses, First dose on Wed02/03/22 at 0000, Last dose on Wed12/30/22 at 0000 Given 03/02/2022 1:31 PM EDT 1,000 mcg Deltoid, Right Active Administered Medications - up to 3 most recent administrations Medication Order MAR Action Action Date Dose Rate Site cyanocobalamin 1,000 mcg injection 1,000 mcg, INTRAMUSCULAR, EVERY 1 MONTH, 12 doses, First dose on Wed02/03/22 at 0000, Last dose on Wed12/30/22 at 0000 Given 04/06/2022 1:48 PM EST 1,000 mcg Deltoid, Left Active Administered Medications - up to 3 most recent administrations Medication Order MAR Action Action Date Dose Rate Site cyanocobalamin 1,000 mcg injection 1,000 mcg, INTRAMUSCULAR, EVERY 1 MONTH, 12 doses, First dose on Wed02/03/22 at 0000, Last dose on Wed12/30/22 at 0000 Given 05/04/2022 1:41 PM EST 1,000 mcg Deltoid, Left Inactive Administered Medications - up to 3 most recent administrations Medication Order MAR Action Action Date Dose Rate Site acetaminophen 1,000 mg tab(s) (TYLENOL) 1,000 mg, ORAL, ONCE, 1 dose, On Wed05/06/22 at 1600, If ordered PRN for pain, patient/guardian may elect to receive this medication for higher pain levels INSTEAD of the opioid, if preferred: Yes Given 05/06/2022 3:57 PM EST 1,000 mg Inactive Administered Medications - up to 3 most recent administrations Medication Order MAR Action Action Date Dose Rate Site ciprofloxacin HCl 500 mg tab(s) (CIPRO) 500 mg, ORAL, ONCE, 1 dose, On [place] 06/11/22 at 1200, One tab prior to procedure Administer 2 hours before or 6 hours after antacids, calcium, iron, zinc or foods containing these items. Tube feedings should be held 1 hour before and 1 hour after administration., Please document the antimicrobial indication: Prophylaxis Given 06/11/2022 1:58 PM EST 500 mg Oral Active Administered Medications - up to 3 most recent administrations Medication Order MAR Action Action Dose Rate Site cyanocobalamin 1,000 mcg injection 1,000 mcg, INTRAMUSCULAR, EVERY 1 MONTH, 12 doses, First dose on Wed02/03/22 at 0000, Last dose on Wed12/30/22 at 0000 Given 07/07/2022 1:30 PM EST 1,000 mcg Deltoid, Left Active Administered Medications - up to 3 most recent administrations Medication Order MAR Action Action Dose Rate Site cyanocobalamin 1,000 mcg injection 1,000 mcg, INTRAMUSCULAR, EVERY 1 MONTH, 12 doses, First dose on Wed02/03/22 at 0000, Last dose on Wed12/30/22 at 0000 Given 08/04/2022 1:31 PM EST 1,000 mcg Deltoid, Left Active Administered Medications - up to 3 most recent administrations Medication Order MAR Action Action Date Dose Rate Site cyanocobalamin 1,000 mcg injection 1,000 mcg, INTRAMUSCULAR, EVERY 1 MONTH, 12 doses, First dose on Wed02/03/22 at 0000, Last dose on Wed12/30/22 at 0000 Given 09/01/2022 1:10 PM EDT 1,000 mcg Deltoid, Left Active Administered Medications - up to 3 most recent administrations Medication Order MAR Action Action Date Dose Rate Site cyanocobalamin 1,000 mcg injection 1,000 mcg, INTRAMUSCULAR, EVERY 1 MONTH, 12 doses, First dose on Wed02/03/22 at 0000, Last dose on Wed12/30/22 at 0000 Given 09/29/2022 1:04 PM EDT 1,000 mcg Deltoid, Left Active Administered Medications - up to 3 most recent administrations Medication Order MAR Action Action Date Dose Rate Site cyanocobalamin 1,000 mcg injection 1,000 mcg, INTRAMUSCULAR, EVERY 1 MONTH, 12 doses, First dose on Wed02/03/22 at 0000, Last dose on Wed12/30/22 at 0000 Given 11/03/2022 1:13 PM EDT 1,000 mcg Deltoid, Left Active Administered Medications - up to 3 most recent administrations Medication Order MAR Action Action Dose Rate Site cyanocobalamin 1,000 mcg injection 1,000 mcg, INTRAMUSCULAR, EVERY 1 MONTH, 12 doses, First dose on Wed02/03/22 at 0000, Last dose on Wed12/30/22 at 0000 Given 01/04/2023 1:31 PM EDT 1,000 mcg Deltoid, Left Inactive Administered Medications - up to 3 most recent administrations Medication Order MAR Action Action Date Dose Rate Site regadenoson 0.4 mg injection (LEXISCAN) 0.4 mg, INTRAVENOUS, ONCE, 1 dose, On [place] 01/28/23 at 1000, Give 0.4 mg (5 mL) over ~10 seconds, followed immediately by a 5 mL saline flush. Wait 10-20 seconds, then administer the radionuclide myocardial perfusion imaging agent. Given 01/28/2023 9:15 AM EDT 0.4 mg Active Administered Medications - up to 3 most recent administrations Medication Order MAR Action Action Date Dose Rate Site cyanocobalamin 1,000 mcg injection 1,000 mcg, INTRAMUSCULAR, EVERY 1 MONTH, 12 doses, First dose on [place] 02/04/23 at 0000, Last dose on Wed12/31/23 at 0000 Given 02/04/2023 1:42 PM EDT 1,000 mcg Deltoid, Left Active Administered Medications - up to 3 most recent administrations Medication Order MAR Action Action Date Dose Rate Site cyanocobalamin 1,000 mcg injection 1,000 mcg, INTRAMUSCULAR, EVERY 1 MONTH, 12 doses, First dose on [place] 02/04/23 at 0000, Last dose on Wed12/31/23 at 0000 Given 03/04/2023 1:31 PM EDT 1,000 mcg Deltoid, Left Active Administered Medications - up to 3 most recent administrations Medication Order MAR Action Action Date Dose Rate Site cyanocobalamin 1,000 mcg injection 1,000 mcg, INTRAMUSCULAR, EVERY 1 MONTH, 12 doses, First dose on [place] 02/04/23 at 0000, Last dose on Wed12/31/23 at 0000 Given 05/04/2023 1:25 PM EST 1,000 mcg Deltoid, Left Reason for Referral Specialty Diagnoses / Procedures Referred By Liliana silva Referred To Contact Orthopedics Diagnoses Open fracture of tuft of distal phalanx of finger Procedures CONSULT PANEL TO ORTHOPAEDICS OFFICE/OUTPATIENT [facility] 60-74 MINUTES Janae Sandoval, GM.TOOL DISTRIBUTOR [address] [place] [address] Referral ID Status Reason Start Date Expiration Date Visits Requested Visits Authorized [id number] Pending Review PCP Requested Referral 05/06/2022 05/06/2023 1 1 Specialty Diagnoses / Procedures Referred By Liliana silva Referred To Contact XR IMAGING Diagnoses Crushing injury of right middle finger, initial encounter Procedures XR DIGIT GENERAL 3V FRONTAL/LAT/OBL RIGHT RADEX FINGR MINIMUM 2 VIEWS Janae Sandoval, GM.TOOL DISTRIBUTOR [address] [place] [address] Xr Imaging Referral ID Status Reason Start Date Expiration Date V isits Requested Visits Authorized [id number] Closed Auto-Generate d Referral 05/06/2022 06/05/2023 1 1 Specialty Diagnoses / Procedures Referred By Liliana t Referred To Contact [facility] Diagnoses Spinal stenosis of lumbar region, unspecified whether neurogenic claudication present Lumbar spondylosis Radiculopathy, lumbar region Spondylolisthesis of lumbar region Procedures CONSULT TO PHYSICAL THERAPY PHYSICAL THERAPY EVALUATION HIGH COMPLEX 45 MINS Oralia Garcia, MINE TECHNICIAN.TOOL DISTRIBUTOR [address] [place] [address] [facility] [address] [address] Referral ID Status Reason Start Date Expiration Date Visits Requested Visits Authorized [id number] Pending Review Auto-Generat ed Referral 08/04/2022 08/04/2023 1 1 Specialty Diagnoses / Procedures Referred By Contac t Referred To Contact [facility] Diagnoses Spinal stenosis of lumbar region, unspecified whether neurogenic claudication present Lumbar spondylosis Radiculopathy, lumbar region Spondylolisthesis of lumbar region Procedures PT REHAB FOLLOW UP ORDER THERAPEUTIC EXERCISES RE, EA 15 MIN. [facility] [address] [place] [id number] [facility] [address] [address] Referral ID Status Reason Start Date Expiration Date Visits Requested Visits Authorized [id number] Pending Review PCP Requested Referral Auto-Generate d Referral 08/18/2022 11/16/2022 1 1 Specialty Diagnoses / Procedures Referred By Contac t Referred To Contact Cardiology Diagnoses Irregular heart rhythm FIELD (dyspnea on exertion) Premature atrial complexes Procedures CONSULT TO CARDIOLOGY OFFICE/OUTPATIENT [facility] MDM 60-74 MINUTES Guillaume Dominguez MD [address] [place] [address] Dilma Meng, DO [address] [address] Referral ID Status Reason Start Date Expiration Date Visits Requested Visits Authorized [id number] Pending Review PCP Requested Referral 08/15/2022 08/15/2023 1 1 Specialty Diagnoses / Procedures Referred By Contac t Referred To [facility] Diagnoses Bilateral carotid artery stenosis Procedures US CAROTID ARTERIES POLO VAS LAB DUPLEX SCAN EXTRACRANIAL ART COMPL BI STUDY Guillaume Dominguez MD [address] [place] [address] [facility] [address] [address] Referral ID Status Reason Start Date Expiration Date Visits Requested Visits Authorized [id number] Pending Review Auto-Generat ed Referral 08/15/2022 08/15/2023 1 1 Specialty Diagnoses / Procedures Referred By Contac t Referred [facility] Diagnoses Irregular heart rhythm FIELD (dyspnea on exertion) Procedures ECG COMPLETE ECG ROUTINE ECG W/LEAST 12 LDS W/I&R Guillaume Dominguez MD [address] [place] [address] [facility] [address] [address] Referral ID Status Reason Start Date Expiration Date V isits Requested Visits Authorized [id number] Closed Auto-Generate d Referral 08/15/2022 08/15/2023 1 1 Specialty Diagnoses / Procedures Referred By Contac t Referred To Contact [facility] Diagnoses Spinal stenosis of lumbar region, unspecified whether neurogenic claudication present Lumbar spondylosis Spondylolisthesis of lumbar region Radiculopathy, lumbar region Procedures PT REHAB FOLLOW UP ORDER THERAPEUTIC EXERCISES RE, EA 15 MIN. [facility] [place] [address] [place] [id number] Referral ID Status Reason Start Date Expiration Date V isits Requested Visits Authorized [id number] Closed PCP Requested Referral Auto-Generated Referral 09/17/2022 12/16/2022 1 1 Specialty Diagnoses / Procedures Referred By Contac t Referred To Contact [facility] Diagnoses Breast cancer screening by mammogram Procedures ARTIS SCREENING SCREENING MAMMOGRAPHY BI 2-VIEW BREAST INC CAD Guillaume Dominguez MD [address] [place] [address] [facility] [address] [place] [id number] Referral ID Status Reason Start Date Expiration Date Visits Requested Visits Authorized [id number] Pending Review Auto-Generat ed Referral 3 08/12/2023 3 1 Additional Source Comments INFORMATION SOURCE (unrecogn ized section and content) DATE CREATED AUTHOR AUTHOR'S ORGANIZ ATION 10/17/2018 [facility] DATE CREATED AUTHOR AUTHOR'S ORGANIZ ATION 06/27/2019 [facility] DATE CREATED AUTHOR AUTHOR'S ORGANIZ ATION 06/12/2022 [facility] DATE CREATED AUTHOR AUTHOR'S ORGANIZ ATION 01/29/2023 [facility] DATE CREATED AUTHOR AUTHOR'S ORGANIZ ATION 06/06/2023 [facility] Source Comments (unrecognize d section and content) In the event this informatio n is protected by the Federal Confidentiality of Alcohol and Drug Abuse Patient Records regulations: The Federal rules restrict any use of the information to criminally investigate or prosecute any alcohol or drug abuse patient.[facility] HospitalIn the event this information is protected by the Federal Confidentiality of Alcohol and Drug Abuse Patient Records regulations: The Federal rules restrict any use of the information to criminally investigate or prosecute any alcohol or drug abuse patient.[facility] HospitalIn the event this information is protected by the Federal Confidentiality of Alcohol and Drug Abuse Patient Records regulations: The Federal rules restrict any use of the information to criminally investigate or prosecute any alcohol or drug abuse patient.[facility] the event this information is protected by the Federal Confidentiality of Alcohol and Drug Abuse Patient Records regulations: The Federal rules restrict any use of the information to criminally investigate or prosecute any alcohol or drug abuse patient.[facility] HospitalIn the event this information is protected by the Federal Confidentiality of Alcohol and Drug Abuse Patient Records regulations: The Federal rules restrict any use of the information to criminally investigate or prosecute any alcohol or drug abuse patient.[facility] HospitalIn the event this information is protected by the Federal Confidentiality of Alcohol and Drug Abuse Patient Records regulations: The Federal rules restrict any use of the information to criminally investigate or prosecute any alcohol or drug abuse patient.[facility] HospitalIn the event this information is protected by the Federal Confidentiality of Alcohol and Drug Abuse Patient Records regulations: The Federal rules restrict any use of the information to criminally investigate or prosecute any alcohol or drug abuse patient.[facility] HospitalIn the event this information is protected by the Federal Confidentiality of Alcohol and Drug Abuse Patient Records regulations: The Federal rules restrict any use of the information to criminally investigate or prosecute any alcohol or drug abuse patient.[facility] HospitalIn the event this information is protected by the Federal Confidentiality of Alcohol and Drug Abuse Patient Records regulations: The Federal rules restrict any use of the information to criminally investigate or prosecute any alcohol or drug abuse patient.[facility] HospitalIn the event this information is protected by the Federal Confidentiality of Alcohol and Drug Abuse Patient Records regulations: The Federal rules restrict any use of the information to criminally investigate or prosecute any alcohol or drug abuse patient.[facility] HospitalIn the event this information is protected by the Federal Confidentiality of Alcohol and Drug Abuse Patient Records regulations: The Federal rules restrict any use of the information to criminally investigate or prosecute any alcohol or drug abuse patient.[facility] HospitalIn the event this information is protected by the Federal Confidentiality of Alcohol and Drug Abuse Patient Records regulations: The Federal rules restrict any use of the information to criminally investigate or prosecute any alcohol or drug abuse patient.[facility] HospitalIn the event this information is protected by the Federal Confidentiality of Alcohol and Drug Abuse Patient Records regulations: The Federal rules restrict any use of the information to criminally investigate or prosecute any alcohol or drug abuse patient.[facility] HospitalIn the event this information is protected by the Federal Confidentiality of Alcohol and Drug Abuse Patient Records regulations: The Federal rules restrict any use of the information to criminally investigate or prosecute any alcohol or drug abuse patient.[facility] HospitalIn the event this information is protected by the Federal Confidentiality of Alcohol and Drug Abuse Patient Records regulations: The Federal rules restrict any use of the information to criminally investigate or prosecute any alcohol or drug abuse patient.[facility] HospitalIn the event this information is protected by the Federal Confidentiality of Alcohol and Drug Abuse Patient Records regulations: The Federal rules restrict any use of the information to criminally investigate or prosecute any alcohol or drug abuse patient.[facility] HospitalIn the event this information is protected by the Federal Confidentiality of Alcohol and Drug Abuse Patient Records regulations: The Federal rules restrict any use of the information to criminally investigate or prosecute any alcohol or drug abuse patient.[facility] HospitalIn the event this information is protected by the Federal Confidentiality of Alcohol and Drug Abuse Patient Records regulations: The Federal rules restrict any use of the information to criminally investigate or prosecute any alcohol or drug abuse patient.[facility] HospitalIn the event this information is protected by the Federal Confidentiality of Alcohol and Drug Abuse Patient Records regulations: The Federal rules restrict any use of the information to criminally investigate or prosecute any alcohol or drug abuse patient.[facility] HospitalIn the event this information is protected by the Federal Confidentiality of Alcohol and Drug Abuse Patient Records regulations: The Federal rules restrict any use of the information to criminally investigate or prosecute any alcohol or drug abuse patient.[facility] HospitalIn the event this information is protected by the Federal Confidentiality of Alcohol and Drug Abuse Patient Records regulations: The Federal rules restrict any use of the information to criminally investigate or prosecute any alcohol or drug abuse patient.[facility] HospitalIn the event this information is protected by the Federal Confidentiality of Alcohol and Drug Abuse Patient Records regulations: The Federal rules restrict any use of the information to criminally investigate or prosecute any alcohol or drug abuse patient.[facility] HospitalIn the event this information is protected by the Federal Confidentiality of Alcohol and Drug Abuse Patient Records regulations: The Federal rules restrict any use of the information to criminally investigate or prosecute any alcohol or drug abuse patient.[facility] HospitalIn the event this information is protected by the Federal Confidentiality of Alcohol and Drug Abuse Patient Records regulations: The Federal rules restrict any use of the information to criminally investigate or prosecute any alcohol or drug abuse patient.[facility] HospitalIn the event this information is protected by the Federal Confidentiality of Alcohol and Drug Abuse Patient Records regulations: The Federal rules restrict any use of the information to criminally investigate or prosecute any alcohol or drug abuse patient.[facility] HospitalIn the event this information is protected by the Federal Confidentiality of Alcohol and Drug Abuse Patient Records regulations: The Federal rules restrict any use of the information to criminally investigate or prosecute any alcohol or drug abuse patient.[facility] HospitalIn the event this information is protected by the Federal Confidentiality of Alcohol and Drug Abuse Patient Records regulations: The Federal rules restrict any use of the information to criminally investigate or prosecute any alcohol or drug abuse patient.[facility] HospitalIn the event this information is protected by the Federal Confidentiality of Alcohol and Drug Abuse Patient Records regulations: The Federal rules restrict any use of the information to criminally investigate or prosecute any alcohol or drug abuse patient.[facility] HospitalIn the event this information is protected by the Federal Confidentiality of Alcohol and Drug Abuse Patient Records regulations: The Federal rules restrict any use of the information to criminally investigate or prosecute any alcohol or drug abuse patient.[facility] HospitalIn the event this information is protected by the Federal Confidentiality of Alcohol and Drug Abuse Patient Records regulations: The Federal rules restrict any use of the information to criminally investigate or prosecute any alcohol or drug abuse patient.[facility] HospitalIn the event this information is protected by the Federal Confidentiality of Alcohol and Drug Abuse Patient Records regulations: The Federal rules restrict any use of the information to criminally investigate or prosecute any alcohol or drug abuse patient.[facility] HospitalIn the event this information is protected by the Federal Confidentiality of Alcohol and Drug Abuse Patient Records regulations: The Federal rules restrict any use of the information to criminally investigate or prosecute any alcohol or drug abuse patient.[facility] HospitalIn the event this information is protected by the Federal Confidentiality of Alcohol and Drug Abuse Patient Records regulations: The Federal rules restrict any use of the information to criminally investigate or prosecute any alcohol or drug abuse patient.[facility] HospitalIn the event this information is protected by the Federal Confidentiality of Alcohol and Drug Abuse Patient Records regulations: The Federal rules restrict any use of the information to criminally investigate or prosecute any alcohol or drug abuse patient.[facility] HospitalIn the event this information is protected by the Federal Confidentiality of Alcohol and Drug Abuse Patient Records regulations: The Federal rules restrict any use of the information to criminally investigate or prosecute any alcohol or drug abuse patient.[facility] HospitalIn the event this information is protected by the Federal Confidentiality of Alcohol and Drug Abuse Patient Records regulations: The Federal rules restrict any use of the information to criminally investigate or prosecute any alcohol or drug abuse patient.[facility] HospitalIn the event this information is protected by the Federal Confidentiality of Alcohol and Drug Abuse Patient Records regulations: The Federal rules restrict any use of the information to criminally investigate or prosecute any alcohol or drug abuse patient.[facility] HospitalIn the event this information is protected by the Federal Confidentiality of Alcohol and Drug Abuse Patient Records regulations: The Federal rules restrict any use of the information to criminally investigate or prosecute any alcohol or drug abuse patient.[facility] HospitalIn the event this information is protected by the Federal Confidentiality of Alcohol and Drug Abuse Patient Records regulations: The Federal rules restrict any use of the information to criminally investigate or prosecute any alcohol or drug abuse patient.[facility] HospitalIn the event this information is protected by the Federal Confidentiality of Alcohol and Drug Abuse Patient Records regulations: The Federal rules restrict any use of the information to criminally investigate or prosecute any alcohol or drug abuse patient.[facility] HospitalIn the event this information is protected by the Federal Confidentiality of Alcohol and Drug Abuse Patient Records regulations: The Federal rules restrict any use of the information to criminally investigate or prosecute any alcohol or drug abuse patient.[facility] HospitalIn the event this information is protected by the Federal Confidentiality of Alcohol and Drug Abuse Patient Records regulations: The Federal rules restrict any use of the information to criminally investigate or prosecute any alcohol or drug abuse patient.[facility] HospitalIn the event this information is protected by the Federal Confidentiality of Alcohol and Drug Abuse Patient Records regulations: The Federal rules restrict any use of the information to criminally investigate or prosecute any alcohol or drug abuse patient.[facility] HospitalIn the event this information is protected by the Federal Confidentiality of Alcohol and Drug Abuse Patient Records regulations: The Federal rules restrict any use of the information to criminally investigate or prosecute any alcohol or drug abuse patient.[facility] HospitalIn the event this information is protected by the Federal Confidentiality of Alcohol and Drug Abuse Patient Records regulations: The Federal rules restrict any use of the information to criminally investigate or prosecute any alcohol or drug abuse patient.[facility] HospitalIn the event this information is protected by the Federal Confidentiality of Alcohol and Drug Abuse Patient Records regulations: The Federal rules restrict any use of the information to criminally investigate or prosecute any alcohol or drug abuse patient.[facility] HospitalIn the event this information is protected by the Federal Confidentiality of Alcohol and Drug Abuse Patient Records regulations: The Federal rules restrict any use of the information to criminally investigate or prosecute any alcohol or drug abuse patient.[facility] HospitalIn the event this information is protected by the Federal Confidentiality of Alcohol and Drug Abuse Patient Records regulations: The Federal rules restrict any use of the information to criminally investigate or prosecute any alcohol or drug abuse patient.[facility] HospitalIn the event this information is protected by the Federal Confidentiality of Alcohol and Drug Abuse Patient Records regulations: The Federal rules restrict any use of the information to criminally investigate or prosecute any alcohol or drug abuse patient.[facility] HospitalIn the event this information is protected by the Federal Confidentiality of Alcohol and Drug Abuse Patient Records regulations: The Federal rules restrict any use of the information to criminally investigate or prosecute any alcohol or drug abuse patient.[facility] HospitalIn the event this information is protected by the Federal Confidentiality of Alcohol and Drug Abuse Patient Records regulations: The Federal rules restrict any use of the information to criminally investigate or prosecute any alcohol or drug abuse patient.[facility] HospitalIn the event this information is protected by the Federal Confidentiality of Alcohol and Drug Abuse Patient Records regulations: The Federal rules restrict any use of the information to criminally investigate or prosecute any alcohol or drug abuse patient.[facility] HospitalIn the event this information is protected by the Federal Confidentiality of Alcohol and Drug Abuse Patient Records regulations: The Federal rules restrict any use of the information to criminally investigate or prosecute any alcohol or drug abuse patient.[facility] ClinicIn the event this information is protected by the Federal Confidentiality of Alcohol and Drug Abuse Patient Records regulations: The Federal rules restrict any use of the information to criminally investigate or prosecute any alcohol or drug abuse patient.[facility] HospitalIn the event this information is protected by the Federal Confidentiality of Alcohol and Drug Abuse Patient Records regulations: The Federal rules restrict any use of the information to criminally investigate or prosecute any alcohol or drug abuse patient.[facility] HospitalIn the event this information is protected by the Federal Confidentiality of Alcohol and Drug Abuse Patient Records regulations: The Federal rules restrict any use of the information to criminally investigate or prosecute any alcohol or drug abuse patient.[facility] HospitalIn the event this information is protected by the Federal Confidentiality of Alcohol and Drug Abuse Patient Records regulations: The Federal rules restrict any use of the information to criminally investigate or prosecute any alcohol or drug abuse patient.[facility] HospitalIn the event this information is protected by the Federal Confidentiality of Alcohol and Drug Abuse Patient Records regulations: The Federal rules restrict any use of the information to criminally investigate or prosecute any alcohol or drug abuse patient.[facility] HospitalIn the event this information is protected by the Federal Confidentiality of Alcohol and Drug Abuse Patient Records regulations: The Federal rules restrict any use of the information to criminally investigate or prosecute any alcohol or drug abuse patient.[facility] HospitalIn the event this information is protected by the Federal Confidentiality of Alcohol and Drug Abuse Patient Records regulations: The Federal rules restrict any use of the information to criminally investigate or prosecute any alcohol or drug abuse patient.[facility] HospitalIn the event this information is protected by the Federal Confidentiality of Alcohol and Drug Abuse Patient Records regulations: The Federal rules restrict any use of the information to criminally investigate or prosecute any alcohol or drug abuse patient.[facility] HospitalIn the event this information is protected by the Federal Confidentiality of Alcohol and Drug Abuse Patient Records regulations: The Federal rules restrict any use of the information to criminally investigate or prosecute any alcohol or drug abuse patient.[facility] HospitalIn the event this information is protected by the Federal Confidentiality of Alcohol and Drug Abuse Patient Records regulations: The Federal rules restrict any use of the information to criminally investigate or prosecute any alcohol or drug abuse patient.[facility] HospitalIn the event this information is protected by the Federal Confidentiality of Alcohol and Drug Abuse Patient Records regulations: The Federal rules restrict any use of the information to criminally investigate or prosecute any alcohol or drug abuse patient.[facility] HospitalIn the event this information is protected by the Federal Confidentiality of Alcohol and Drug Abuse Patient Records regulations: The Federal rules restrict any use of the information to criminally investigate or prosecute any alcohol or drug abuse patient.[facility] HospitalIn the event this information is protected by the Federal Confidentiality of Alcohol and Drug Abuse Patient Records regulations: The Federal rules restrict any use of the information to criminally investigate or prosecute any alcohol or drug abuse patient.[facility] HospitalIn the event this information is protected by the Federal Confidentiality of Alcohol and Drug Abuse Patient Records regulations: The Federal rules restrict any use of the information to criminally investigate or prosecute any alcohol or drug abuse patient.[facility] HospitalIn the event this information is protected by the Federal Confidentiality of Alcohol and Drug Abuse Patient Records regulations: The Federal rules restrict any use of the information to criminally investigate or prosecute any alcohol or drug abuse patient.[facility] HospitalIn the event this information is protected by the Federal Confidentiality of Alcohol and Drug Abuse Patient Records regulations: The Federal rules restrict any use of the information to criminally investigate or prosecute any alcohol or drug abuse patient.[facility] HospitalIn the event this information is protected by the Federal Confidentiality of Alcohol and Drug Abuse Patient Records regulations: The Federal rules restrict any use of the information to criminally investigate or prosecute any alcohol or drug abuse patient.[facility] HospitalIn the event this information is protected by the Federal Confidentiality of Alcohol and Drug Abuse Patient Records regulations: The Federal rules restrict any use of the information to criminally investigate or prosecute any alcohol or drug abuse patient.[facility] HospitalIn the event this information is protected by the Federal Confidentiality of Alcohol and Drug Abuse Patient Records regulations: The Federal rules restrict any use of the information to criminally investigate or prosecute any alcohol or drug abuse patient.[facility] HospitalIn the event this information is protected by the Federal Confidentiality of Alcohol and Drug Abuse Patient Records regulations: The Federal rules restrict any use of the information to criminally investigate or prosecute any alcohol or drug abuse patient.[facility] HospitalIn the event this information is protected by the Federal Confidentiality of Alcohol and Drug Abuse Patient Records regulations: The Federal rules restrict any use of the information to criminally investigate or prosecute any alcohol or drug abuse patient.[facility] HospitalIn the event this information is protected by the Federal Confidentiality of Alcohol and Drug Abuse Patient Records regulations: The Federal rules restrict any use of the information to criminally investigate or prosecute any alcohol or drug abuse patient.[facility] HospitalIn the event this information is protected by the Federal Confidentiality of Alcohol and Drug Abuse Patient Records regulations: The Federal rules restrict any use of the information to criminally investigate or prosecute any alcohol or drug abuse patient.[facility] HospitalIn the event this information is protected by the Federal Confidentiality of Alcohol and Drug Abuse Patient Records regulations: The Federal rules restrict any use of the information to criminally investigate or prosecute any alcohol or drug abuse patient.[facility] HospitalIn the event this information is protected by the Federal Confidentiality of Alcohol and Drug Abuse Patient Records regulations: The Federal rules restrict any use of the information to criminally investigate or prosecute any alcohol or drug abuse patient.[facility] HospitalIn the event this information is protected by the Federal Confidentiality of Alcohol and Drug Abuse Patient Records regulations: The Federal rules restrict any use of the information to criminally investigate or prosecute any alcohol or drug abuse patient.[facility] HospitalIn the event this information is protected by the Federal Confidentiality of Alcohol and Drug Abuse Patient Records regulations: The Federal rules restrict any use of the information to criminally investigate or prosecute any alcohol or drug abuse patient.[facility] HospitalIn the event this information is protected by the Federal Confidentiality of Alcohol and Drug Abuse Patient Records regulations: The Federal rules restrict any use of the information to criminally investigate or prosecute any alcohol or drug abuse patient.[facility] HospitalIn the event this information is protected by the Federal Confidentiality of Alcohol and Drug Abuse Patient Records regulations: The Federal rules restrict any use of the information to criminally investigate or prosecute any alcohol or drug abuse patient.[facility] HospitalIn the event this information is protected by the Federal Confidentiality of Alcohol and Drug Abuse Patient Records regulations: The Federal rules restrict any use of the information to criminally investigate or prosecute any alcohol or drug abuse patient.[facility] HospitalIn the event this information is protected by the Federal Confidentiality of Alcohol and Drug Abuse Patient Records regulations: The Federal rules restrict any use of the information to criminally investigate or prosecute any alcohol or drug abuse patient.[facility] HospitalIn the event this information is protected by the Federal Confidentiality of Alcohol and Drug Abuse Patient Records regulations: The Federal rules restrict any use of the information to criminally investigate or prosecute any alcohol or drug abuse patient.[facility] HospitalIn the event this information is protected by the Federal Confidentiality of Alcohol and Drug Abuse Patient Records regulations: The Federal rules restrict any use of the information to criminally investigate or prosecute any alcohol or drug abuse patient.[facility] HospitalIn the event this information is protected by the Federal Confidentiality of Alcohol and Drug Abuse Patient Records regulations: The Federal rules restrict any use of the information to criminally investigate or prosecute any alcohol or drug abuse patient.[facility] HospitalIn the event this information is protected by the Federal Confidentiality of Alcohol and Drug Abuse Patient Records regulations: The Federal rules restrict any use of the information to criminally investigate or prosecute any alcohol or drug abuse patient.[facility] HospitalIn the event this information is protected by the Federal Confidentiality of Alcohol and Drug Abuse Patient Records regulations: The Federal rules restrict any use of the information to criminally investigate or prosecute any alcohol or drug abuse patient.[facility] HospitalIn the event this information is protected by the Federal Confidentiality of Alcohol and Drug Abuse Patient Records regulations: The Federal rules restrict any use of the information to criminally investigate or prosecute any alcohol or drug abuse patient.[facility] HospitalIn the event this information is protected by the Federal Confidentiality of Alcohol and Drug Abuse Patient Records regulations: The Federal rules restrict any use of the information to criminally investigate or prosecute any alcohol or drug abuse patient.[facility] HospitalIn the event this information is protected by the Federal Confidentiality of Alcohol and Drug Abuse Patient Records regulations: The Federal rules restrict any use of the information to criminally investigate or prosecute any alcohol or drug abuse patient.[facility] HospitalIn the event this information is protected by the Federal Confidentiality of Alcohol and Drug Abuse Patient Records regulations: The Federal rules restrict any use of the information to criminally investigate or prosecute any alcohol or drug abuse patient.[facility] HospitalIn the event this information is protected by the Federal Confidentiality of Alcohol and Drug Abuse Patient Records regulations: The Federal rules restrict any use of the information to criminally investigate or prosecute any alcohol or drug abuse patient.[facility] HospitalIn the event this information is protected by the Federal Confidentiality of Alcohol and Drug Abuse Patient Records regulations: The Federal rules restrict any use of the information to criminally investigate or prosecute any alcohol or drug abuse patient.[facility] HospitalIn the event this information is protected by the Federal Confidentiality of Alcohol and Drug Abuse Patient Records regulations: The Federal rules restrict any use of the information to criminally investigate or prosecute any alcohol or drug abuse patient.[facility] HospitalIn the event this information is protected by the Federal Confidentiality of Alcohol and Drug Abuse Patient Records regulations: The Federal rules restrict any use of the information to criminally investigate or prosecute any alcohol or drug abuse patient.[facility] HospitalIn the event this information is protected by the Federal Confidentiality of Alcohol and Drug Abuse Patient Records regulations: The Federal rules restrict any use of the information to criminally investigate or prosecute any alcohol or drug abuse patient.[facility] HospitalIn the event this information is protected by the Federal Confidentiality of Alcohol and Drug Abuse Patient Records regulations: The Federal rules restrict any use of the information to criminally investigate or prosecute any alcohol or drug abuse patient.[facility] HospitalIn the event this information is protected by the Federal Confidentiality of Alcohol and Drug Abuse Patient Records regulations: The Federal rules restrict any use of the information to criminally investigate or prosecute any alcohol or drug abuse patient.[facility] HospitalIn the event this information is protected by the Federal Confidentiality of Alcohol and Drug Abuse Patient Records regulations: The Federal rules restrict any use of the information to criminally investigate or prosecute any alcohol or drug abuse patient.[facility] HospitalIn the event this information is protected by the Federal Confidentiality of Alcohol and Drug Abuse Patient Records regulations: The Federal rules restrict any use of the information to criminally investigate or prosecute any alcohol or drug abuse patient.[facility] HospitalIn the event this information is protected by the Federal Confidentiality of Alcohol and Drug Abuse Patient Records regulations: The Federal rules restrict any use of the information to criminally investigate or prosecute any alcohol or drug abuse patient.[facility] ClinicIn the event this information is protected by the Federal Confidentiality of Alcohol and Drug Abuse Patient Records regulations: The Federal rules restrict any use of the information to criminally investigate or prosecute any alcohol or drug abuse patient.[facility] HospitalIn the event this information is protected by the Federal Confidentiality of Alcohol and Drug Abuse Patient Records regulations: The Federal rules restrict any use of the information to criminally investigate or prosecute any alcohol or drug abuse patient.[facility] HospitalIn the event this information is protected by the Federal Confidentiality of Alcohol and Drug Abuse Patient Records regulations: The Federal rules restrict any use of the information to criminally investigate or prosecute any alcohol or drug abuse patient.[facility] HospitalIn the event this information is protected by the Federal Confidentiality of Alcohol and Drug Abuse Patient Records regulations: The Federal rules restrict any use of the information to criminally investigate or prosecute any alcohol or drug abuse patient.[facility] HospitalIn the event this information is protected by the Federal Confidentiality of Alcohol and Drug Abuse Patient Records regulations: The Federal rules restrict any use of the information to criminally investigate or prosecute any alcohol or drug abuse patient.[facility] HospitalIn the event this information is protected by the Federal Confidentiality of Alcohol and Drug Abuse Patient Records regulations: The Federal rules restrict any use of the information to criminally investigate or prosecute any alcohol or drug abuse patient.[facility] HospitalIn the event this information is protected by the Federal Confidentiality of Alcohol and Drug Abuse Patient Records regulations: The Federal rules restrict any use of the information to criminally investigate or prosecute any alcohol or drug abuse patient.[facility] Reason for Visit (unrecogniz ed section and content) Reason Comments B-12 Injection Reason Onset Date Comments Refill Request 09/22/2021 Reason Comments Results Reason Comments Appointment Reason Comments Results Reason Comments Fatigue Reason Onset Date Comments Refill Request 10/21/2021 Reason Comments CARD New Patient Consult no issues Specialty Diagnoses / Procedures Referred By Contluisa t Referred To Contact Cardiology Diagnoses Shortness of breath on exertion Irregular heart beat Fatigue, unspecified type Procedures CONSULT TO CARDIOLOGY OFFICE/OUTPATIENT [facility] 60-74 MINUTES Comfort Patterson APRN.NANNETTE [address] [place] [address] Referral ID Status Reason Start Date Expiration Date Visits Requested Visits Authorized [id number] Pending Review PCP Requested Referral 10/28/2021 10/07/2022 1 1 Reason Comments Patient Update Reason Comments urine symptoms Reason Comments Urinary Frequency pressure x1 week Reason Comments Fatigue on going for about 2 months but getting worse states sleeps well at night. Takes about 2 naps a day lasting 15min to 90 min.Does snore. Reason Comments Orders Reason Comments Patient Question Reason Comments Schedule Injection Reason Onset Date Comments Immunizations 02/10/2022 Flu vaccination b 12 injection Reason Comments Medication Problem Stopped Eliquis for procedure-now has chest pain Reason Comments B-12 Injection Imm/Inj Reason Comments Injection Followup Reason Comments Follow Up Reason Onset Date Comments Refill Request 03/23/2022 Reason Comments Patient Update Appointment Reason Comments F/U 6 months Reason Comments Spirometry Specialty Diagnoses / Procedures Referred By Contac t Referred To Contact [facility] Diagnoses FIELD (dyspnea on exertion) Chronic cough Procedures SPIROMETRY WITH DILATOR IF OBSTRUCTED BRNCDILAT RSPSE SPMTRY PRE&POST-BRNCDILAT ADMN Guillaume Dominguez MD [address] [place] [address] [facility] [place] [facility] [address] Referral ID Status Reason Start Date Expiration Date V isits Requested Visits Authorized [id number] Closed Auto-Generate d Referral 04/27/2022 05/27/2023 1 1 Specialty Diagnoses / Procedures Referred By Contac t Referred To Contact [facility] Diagnoses FIELD (dyspnea on exertion) Chronic cough Procedures LUNG VOLUMES Guillaume Dominguez MD [address] [place] [address] [facility] [place] [facility] [place] [address] Referral ID Status Reason Start Date Expiration Date V isits Requested Visits Authorized [id number] Closed Auto-Generate d Referral 04/28/2022 05/30/2022 1 1 Reason Comments Low Back Pain Reason Comments Trauma Smashed right middle finger bleeding this morning Reason Comments Finger Injury Reason Comments Eliquis question Reason Comments Urine Culture Result and Plan Reason Onset Date Comments Appointment 05/29/2022 Reason Comments Cystoscopy-1 Stent Removal Reason Comments ER F/U Reason Comments Medication Question Reason Comments back pain persisting Recommendations Reason Comments Established Patient Discuss back pain co ncerns Reason Comments handicap prescription Reason Comments Patient Question Reason Onset Date Comments Refill Request 08/07/2022 Reason Comments referral request Opened In Error Reason Comments Referral Request Patient Update Reason Comments PT Eval Patient Education Specialty Diagnoses / Procedures Referred By Contac t Referred To Contact [facility] Diagnoses Spinal stenosis of lumbar region, unspecified whether neurogenic claudication present Lumbar spondylosis Radiculopathy, lumbar region Spondylolisthesis of lumbar region Procedures CONSULT TO PHYSICAL THERAPY PHYSICAL THERAPY EVALUATION HIGH COMPLEX 45 MINS Oralia Garcia, MINE TECHNICIAN.TOOL DISTRIBUTOR [address] [place] [address] [facility] [place] [id number] Referral ID Status Reason Start Date Expiration Date V isits Requested Visits Authorized [id number] Closed Auto-Generate d Referral 05/31/2022 05/30/2023 1 1 Reason Comments Headache Reason Comments Physical Therapy Specialty Diagnoses / Procedures Referred By Contac t Referred To Contact [facility] Diagnoses Spinal stenosis of lumbar region, unspecified whether neurogenic claudication present Lumbar spondylosis Radiculopathy, lumbar region Spondylolisthesis of lumbar region Procedures PT REHAB FOLLOW UP ORDER THERAPEUTIC EXERCISES RE, EA 15 MIN. Juanita Wharton, PT, DPT [address] [place] [address] [facility] [place] [id number] Referral ID Status Reason Start Date Expiration Date Visits Requested Visits Authorized [id number] Authorized PCP Requested Referral Auto-Generate d Referral 08/19/2022 11/19/2022 10 10 Reason Comments Hip Pain Reason Comments PT Progress Note Specialty Diagnoses / Procedures Referred By Contac t Referred To Contact [facility] Diagnoses Spinal stenosis of lumbar region, unspecified whether neurogenic claudication present Lumbar spondylosis Radiculopathy, lumbar region Spondylolisthesis of lumbar region Procedures PT REHAB FOLLOW UP ORDER THERAPEUTIC EXERCISES RE, EA 15 MIN. Juanita Wharton, PT, DPT [address] [place] [address] [facility] [place] [address] [place] [address] Reason Onset Date Comments Refill Request 09/23/2022 Reason Onset Date Comments Refill Request 09/25/2022 Reason Comments Anticoagulation Referral ID Status Reason Start Date Expiration Date V isits Requested Visits Authorized [id number] Closed PCP Requested Referral Auto-Generated Referral 08/19/2022 11/19/2022 10 10 Reason Onset Date Comments Refill Request 10/12/2022 Reason Comments Recheck Reason Comments PT Discharge Specialty Diagnoses / Procedures Referred By Contac t Referred To Contact Physical Therapy / PHYSICAL THERAPY Diagnoses M48.061 (ICD-10-CM) - Spinal stenosis of lumbar region, unspecified whether neurogenic claudication present M47.816 (ICD-10-CM) - Lumbar spondylosis M54.16 (ICD-10-CM) - Radiculopathy, lumbar region M43.16 (ICD-10-CM) - Spondylolisthesis of lumbar region Procedures THERAPEUTIC EXERCISES RE, EA 15 MIN. EST RS PT ORTH Veda Rocha [address]; [address] [address] Nhi Iverson, PT Referral ID Status Reason Start Date Expiration Date V isits Requested Visits Authorized [id number] Authorized 10/12/2022 01/28/2023 10 10 Reason Comments Child Life Therapist - Other Reason Comments Follow Up Non-insulin Dependent Diabetes Mellitus Reason Comments Medication Problem Reason Comments Cardiology Follow Up N/P Saw Dr Aniya madrid 11/03/[address] Kayleigh Dominguez 08/15/2022 FIELD Irregular heart rhythmECG 08/15/2022ZIO 11/21/2021ECHO 10/17/2021ECG TODAY SOB, on going Needs to est Specialty Diagnoses / Procedures Referred By Contac t Referred To Contact Cardiology Diagnoses Irregular heart rhythm FIELD (dyspnea on exertion) Premature atrial complexes Procedures CONSULT TO CARDIOLOGY OFFICE/OUTPATIENT [facility] 60-74 MINUTES Guillaume Dominguez MD [address] [place] [address] Dilma Meng, DO [address] [address] Referral ID Status Reason Start Date Expiration Date Visits Requested Visits Authorized [id number] Pending Review PCP Requested Referral 08/15/2022 08/15/2023 1 1 Reason Comments Forms Reason Comments Reminder Call Reason Onset Date Comments Recheck Immunizations 02/02/2023 Flu vaccination Reason Onset Date Comments Refill Request 02/19/2023 Reason Comments Refill Request Reason Comments Non-insulin Dependent Diabetes Mellitus Reason Onset Date Comments Established Patient Memory issue s. Breast Problem 05/14/2023 Mammogram at [facility] Care Teams (unrecognized sec tion and content) Manager Vehicle Relationship Specialty Start Date End Date Guillaume Dominguez MD [address] [place] [id number] PCP - General 07/30/04 Manager Vehicle Relationship Specialty Start Date End Date Guillaume Dominguez MD [address] [place] [id number] PCP - General 07/30/04 Manager Vehicle Relationship Specialty Start Date End Date Guillaume Dominguez MD [address] [place] [id number] PCP - General 07/30/04 Manager Vehicle Relationship Specialty Start Date End Date Guillaume Dominguez MD [address] [place] [id number] PCP - General 07/30/04 Manager Vehicle Relationship Specialty Start Date End Date Guillaume Dominguez MD [address] [place] [id number] PCP - General 07/30/04 Manager Vehicle Relationship Specialty Start Date End Date Guillaume Dominguez MD [address] [place] [address] PCP - General 07/30/04 Manager Vehicle Relationship Specialty Start Date End Date Guillaume Dominguez MD [address] [facility] [place] [address] PCP - General 07/30/04 Manager Vehicle Relationship Specialty Start Date End Date Guillaume Dominguez MD [address] [place] [address], [place] [address] PCP - General 07/30/04 Manager Vehicle Relationship Specialty Start Date End Date Guillaume Dominguez MD [address] [place] [address], [place] [address] PCP - General 07/30/04 Manager Vehicle Relationship Specialty Start Date End Date Guillaume Dominguez MD [address] [place] [address], [place] [address] PCP - General 07/30/04 Manager Vehicle Relationship Specialty Start Date End Date Guillaume Dominguez MD [address] [place] [address], [place] [address] PCP - General 07/30/04 Manager Vehicle Relationship Specialty Start Date End Date Guillaume Dominguez MD [address] [place] [address], [place] [address] PCP - General 07/30/04 Manager Vehicle Relationship Specialty Start Date End Date Guillaume Dominguez MD [address] [place] [address], [place] [address] PCP - General 07/30/04 Manager Vehicle Relationship Specialty Start Date End Date Guillaume Dominguez MD [address] [place] [address], [place] [address] PCP - General 07/30/04 Manager Vehicle Relationship Specialty Start Date End Date Guillaume Dominguez MD [address] [place] [address], [place] [address] PCP - General 07/30/04 Manager Vehicle Relationship Specialty Start Date End Date Guillaume Dominguez MD [address] [place] [address], [place] [address] PCP - General 07/30/04 Manager Vehicle Relationship Specialty Start Date End Date Guillaume Dominguez MD [address] [place] [address], [place] [address] PCP - General 07/30/04 Manager Vehicle Relationship Specialty Start Date End Date Guillaume Dominguez MD [address] [place] [address], [place] [address] PCP - General 07/30/04 Manager Vehicle Relationship Specialty Start Date End Date Guillaume Dominguez MD [address] [place] [address], [place] [address] PCP - General 07/30/04 Manager Vehicle Relationship Specialty Start Date End Date Guillaume Dominguez MD [address] [place] [address], [place] [address] PCP - General 07/30/04 Manager Vehicle Relationship Specialty Start Date End Date Guillaume Dominguez MD [address] [place] [address], [place] [address] PCP - General 07/30/04 Manager Vehicle Relationship Specialty Start Date End Date Guillaume Dominguez MD [address] [place] [address], [place] [address] PCP - General 07/30/04 Manager Vehicle Relationship Specialty Start Date End Date Guillaume Dominguez MD [address] [place] [address], [place] [address] PCP - General 07/30/04 Manager Vehicle Relationship Specialty Start Date End Date Guillaume Dominguez MD [address] [place] [address], [place] [address] PCP - General 07/30/04 Manager Vehicle Relationship Specialty Start Date End Date Guillaume Dominguez MD [address] [place] [address], [place] [address] PCP - General 07/30/04 Manager Vehicle Relationship Specialty Start Date End Date Guillaume Dominguez MD [address] [place] [address], [place] [address] PCP - General 07/30/04 Manager Vehicle Relationship Specialty Start Date End Date Guillaume Dominguez MD [address] [place] [address], [place] [address] PCP - General 07/30/04 Manager Vehicle Relationship Specialty Start Date End Date Guillaume Dominguez MD [address] [place] [address], [place] [address] PCP - General 07/30/04 Manager Vehicle Relationship Specialty Start Date End Date Guillaume Dominguez MD [address] [place] [address], [place] [address] PCP - General 07/30/04 Manager Vehicle Relationship Specialty Start Date End Date Guillaume Dominguez MD [address] [place] [address], [place] [address] PCP - General 07/30/04 Manager Vehicle Relationship Specialty Start Date End Date Guillaume Dominguez MD [address] [place] [address], [place] [address] PCP - General 07/30/04 Manager Vehicle Relationship Specialty Start Date End Date Guillaume Dominguez MD [address] [place] [address], [place] [address] PCP - General 07/30/04 Manager Vehicle Relationship Specialty Start Date End Date Guillaume Dominguez MD [address] [facility] [place] [address] PCP - General 07/30/04 Manager Vehicle Relationship Specialty Start Date End Date Guillaume Dominguez MD [address] [facility] [place] [address] PCP - General 07/30/04 Manager Vehicle Relationship Specialty Start Date End Date Guillaume Dominguez MD [address] [facility] [place] [address] PCP - General 07/30/04 Manager Vehicle Relationship Specialty Start Date End Date Guillaume Dominguez MD [address] [facility] [place] [address] PCP - General 07/30/04 Manager Vehicle Relationship Specialty Start Date End Date Guillaume Dominguez MD [address] [place] [address] PCP - General 07/30/04 Manager Vehicle Relationship Specialty Start Date End Date Guillaume Dominguez MD [address] [place] [address] PCP - General 07/30/04 Manager Vehicle Relationship Specialty Start Date End Date Guillaume Dominguez MD [address] [facility] [place] [address] PCP - General 07/30/04 Manager Vehicle Relationship Specialty Start Date End Date Guillaume Dominguez MD [address] [place] [address] PCP - General 07/30/04 Manager Vehicle Relationship Specialty Start Date End Date Guillaume Dominguez MD [address] [facility] [place] [address] PCP General 07/30/04 Manager Vehicle Relationship Specialty Start Date End Date Guillaume Dominguez MD [address] [facility] [place] [address] PCP General 07/30/04 Manager Vehicle Relationship Specialty Start Date End Date Guillaume Dominguez MD [address] [facility] [place] [address] PCP General 07/30/04 Manager Vehicle Relationship Specialty Start Date End Date Guillaume Dominguez MD [address] [facility] [place] [address] PCP General 07/30/04 Manager Vehicle Relationship Specialty Start Date End Date Guillaume Dominguez MD [address] [facility] [place] [address] PCP [facility] 07/30/04 Manager Vehicle Relationship Specialty Start Date End Date Guillaume Dominguez MD [address] [place] [address] [facility] General 07/30/04 FOR RECORDS PERTAINING TO PATIENTS WHO ARE OR HAVE BEEN ENROLLED IN A CHEMICAL DEPENDENCY/SUBSTANCEABUSE PROGRAM, SOME INFORMATION MAY BE OMITTED. This clinical summary was aggregated from multiple sources. Caution should be exercised in using it in the provision of clinical care. This summary normalizes information from multiple sources, and as a consequence, information in this document may materially change the coding, format and clinical context of patient data. In addition, data may be omitted in some cases. CLINICAL DECISIONS SHOULD BE BASED ON THE PRIMARY CLINICAL RECORDS. [facility]. provides no warranty or guarantee of the accuracy or completeness of information in this document.
[2023-06-12 20:31] LABS: Absolute Neutrophil Count 13.7 X10^3/uL (2.0-7.7); Basophil# 0.06 X10^3/uL; Basophil% 0.4 % (0-1); Hemoglobin 12.8 g/dL (12.0-15.0); Mean Corp Hgb Conc 31.2 g/dL (32-36); Mean Corpuscular Hgb 28.2 pg (27.0-32.0); Mean Corpuscular Volume 90.3 fL (81-99); Mean Platelet Vol. 10.7 fl (6.2-12.0); Monocyte# 1.24 X10^3/uL; Monocyte% 7.8 % (0-10); NRBC Flagged by Analyzer 0 % (0-5); Neutrophil # 13.65 X10^3/uL (2.7-7.7); Neutrophil % 86.2 % (47-70); Platelet Count 309 K/mm3 (150-450); RBC Distribution Width CV 14.6 % (11.6-14.6); RBC Distribution Width SD 48.2 fl (35.1-43.9); Red Blood Count 4.54 M/mm3 (4.2-5.4); White Blood Count 15.9 K/mm3 (4.4-11.0)
[2023-06-12] MEDS: 0.9% Normal Saline (1000mL) 1,000 ML 1000 ML IV (20:35)
[2023-06-12 21:04] LABS: Anion Gap 8 (5-15); BUN 14 mg/dL (7-18); BUN/Creat Ratio 17.5 RATIO (10-20); Calcium,Total 9.1 mg/dL (8.5-10.1); Chloride 99 mmol/L (98-107); EST Glomerular Filtration Rate 73 mL/min (>60); Est Glom Filt Rate - Afr Amer 88 mL/min (>60); Estimated Creatinine Clearance 65.91 ml/min; Glucose 268 mg/dL (74-106); Potassium 3.8 mmol/L (3.5-5.1); Sodium Level 132 mmol/L (136-145)
[2023-06-12 21:18] LABS: Mucous, Urine 0 SEEN /hpf (<or=2+)
[2023-06-12 21:19] LABS: Color, Urine Yellow (Yellow); Glucose, Dipstick 50 mg/dl (Normal); Ketone-Dipstick 50 mg/dl (Negative); Leukocyte Esterase-Dipstick 100 /ul (Negative); Nitrite-Dipstick Positive (Negative); Occult Blood-Urine 150 /ul (Negative); Protein-Dipstick 30 mg/dl (Negative); Specific Gravity, Urine 1.015 (1.002-1.030); Urine Bilirubin Dipstick Negative (Negative); Urine Clarity Clear (Clear); Urine Urobilinogen Normal (Normal)
--- NOTE | 2023-06-12 21:26 | RAD_ITS ---
INDICATION: Injury/Pain EXAMINATION/TECHNIQUE: X-RAY - RIGHT XR Femur Min 2 Views COMPARISON: None. FINDINGS: 4 views of the right femur. BONES: Normal anatomic alignment without evidence of fracture or subluxation. No concerning bony lesion or abnormal sclerosis to suggest lesion. JOINTS: Right total knee arthroplasty without obvious hardware complication. SOFT TISSUES: Dense atherosclerotic vascular calcifications. RAD/Femur Min 2 Views IMPRESSION: No acute osseous abnormality of the right femur. Electronically Signed: Sina Guillory MD at 22:44 EST ,
[2023-06-12 21:48] LABS: Bacteria 2+ /hpf (None Seen); Red Blood Cells-Urine 0-5 SEEN /hpf (0-5); Squamous Epithelial Cells - UA 0-5 SEEN /hpf (5-10); White Blood Cells 0-5 SEEN /hpf (0-5)
[2023-06-12] MEDS: Acetaminophen 500 MG Tablet 1000 MG PO (22:50)
[2023-06-12 23:05] VITALS: BP 157/74; PULSE 78; RESP 16; O2SAT 97
== END 2023-06-12 23:05 | disposition home or self-care (01) ==
PROVIDERS: Emergency Provider Emergency Medicine; PCP Internal Medicine; Visit Provider Emergency Medicine
DX: S70.01XA Contusion of right hip, initial encounter (principal); E11.9 Type 2 diabetes mellitus without complications; M54.9 Dorsalgia, unspecified; S70.11XA Contusion of right thigh, initial encounter; I10 Essential (primary) hypertension; E66.9 Obesity, unspecified; W19.XXXA Unspecified fall, initial encounter
CPT/HCPCS: 70450; 72170; 73552; 80048; 81001; 85025; 96360; 96361; 99285; J7030; A4216

== ENCOUNTER 2024-01-10 21:31 | Inpatient (IN) | payer MEDICARE, SELFPAY ==
[2024-01-10 21:31] VITALS: BP 185/104; PULSE 104; RESP 19; TEMP 35.9; O2SAT 100; BMI 32.3
--- NOTE | 2024-01-10 21:49 | RAD_ITS ---
INDICATION: Cough EXAMINATION/TECHNIQUE: X-RAY - XR Chest 1 View COMPARISON: 08/27/2020. FINDINGS: LINES/DEVICES: None. LUNGS: No consolidation or evidence of an effusion. No evidence of edema or a pneumothorax. MEDIASTINUM AND CARDIOVASCULAR STRUCTURES: Cardiac silhouette is normal in size and contour. Mediastinum is unremarkable. BONES AND SOFT TISSUES: No acute abnormality. RAD/Chest 1 View (Portable) IMPRESSION: No evidence of acute cardiopulmonary disease. Electronically Signed: Napoleon Orlando DO at 23:27 EDT ,
--- NOTE | 2024-01-10 21:49 | RAD_ITS ---
INDICATION: Injury/Pain EXAMINATION/TECHNIQUE: X-RAY - LEFT XR Hip Unilateral with Pelvis when performed; 2-3 Views COMPARISON: 06/12/2023. FINDINGS: SOFT TISSUES: Unremarkable. BONES/JOINTS: Comminuted displaced and angulated intertrochanteric fracture of the left femur. No dislocation. Moderate right and mild left degenerative changes of the hips. No erosive changes. RAD/HIP, UNI W/ Pelvis 2-3 Views IMPRESSION: Comminuted, displaced and angulated intertrochanteric fracture of the left femur. Electronically Signed: Napoleon Orlando DO at 23:25 EDT ,
--- NOTE | 2024-01-10 21:50 | EKG12_ITS ---
Test Reason : FALL Blood Pressure : / mmHG Vent. Rate : 105 BPM Atrial Rate : 105 BPM P-R Int : 184 ms QRS Dur : 080 ms QT Int : 348 ms P-R-T Axes : 065 -17 091 degrees QTc Int : 459 ms Sinus tachycardia with frequent Premature ventricular complexes Minimal voltage criteria for LVH, may be normal variant ( R in aVL ) Abnormal QRS-T angle, consider primary T wave abnormality Confirmed by MICAELA SCHMIDT, MADAI ([id number]), news editor FRANCO HUSSEIN ([id number]) on 01/12/2024 9:40:37 AM Referred By: SAIMA Confirmed By:MADAI HINOJOSA MD
--- NOTE | 2024-01-10 21:58 | EDS_ITS ---
HPI History of Present Illness Chief Complaint: Fall Informant: patient Onset/Context/Timing Onset: Today Mechanism/Context: Fall Location of pain/injuries: Left hip Quality of Pain: Sharp and Aching Location: Left hip Worsened by: Movement Relieved by: Nothing Associated Symptoms Associated Symptoms: Positive for Inability to ambulate; Negative for Parasthesias, Weakness, Loss of function, Loss of consciousness or Amnesia Narrative Narrative: Patient presents with left hip pain that began after a fall. Patient states she stood up to walk and grab her walker. Patient states she lost her balance and fell. Patient states she landed on her left side. Patient was unable to ambulate after the fall. Patient states she is being treated for a urinary tract infection. Patient states she has been having some urinary frequency which made her want to stand up and walk. Patient denies any head injury or loss of consciousness. Patient denies any paresthesias or weakness. [facility] Medical History (Updated 01/10/24 @ 23:[address] Kerwin Kumar, DO) Back fracture Diabetes HTN (hypertension) Pulmonary emboli Home Medications ?Medication ?Instructions ?Recorded ?Last Taken ?Type calcitriol 0.5 mcg capsule 0.5 mcg PO DAILY 03/04/15 Unknown History acetaminophen 500 mg tablet 500 mg PO QHS 03/31/19 Unknown History ascorbic acid (vitamin C) 500 mg 500 mg PO DAILY 03/31/19 Unknown History tablet biotin 2,500 mcg capsule 2,500 mcg PO DAILY 03/31/19 Unknown History calcium carbonate 600 mg-vitamin 2 tab PO DAILY 03/31/19 Unknown History D3 5 mcg (200 unit) tablet cyanocobalamin (vitamin B-12) 1,000 mcg IM Q30D 03/31/19 Unknown History 1,000 mcg/mL injection solution multivitamin with minerals 1 ea PO DAILY 03/31/19 Unknown History oxybutynin chloride 10 mg 10 mg PO QHS overactive bladder 03/31/19 Unknown History tablet,extended release 24 hr apixaban 5 mg tablet 5 mg PO BID #74 tabs 08/27/20 Unknown Rx cholecalciferol (vitamin D3) 50 100 mcg PO DAILY 01/10/24 Unknown History mcg (2,000 unit) capsule duloxetine 20 mg capsule,delayed 40 mg PO DAILY 01/10/24 Unknown History release (Cymbalta) ferrous sulfate 325 mg (65 mg 325 mg PO DAILY 01/10/24 Unknown History iron) tablet (Iron (ferrous sulfate)) fluconazole 200 mg tablet 200 mg PO MOWEFR 01/10/24 Unknown History (Diflucan) loratadine 10 mg tablet (Claritin) 10 mg PO DAILY 01/10/24 Unknown History melatonin 3 mg capsule 3 mg PO QHS 01/10/24 Unknown History nitrofurantoin 1 cap PO BID 01/10/24 Unknown History monohydrate/macrocrystals 100 mg capsule tirzepatide 5 mg/0.5 mL 5 mg subcut QWEEK 01/10/24 Unknown History subcutaneous pen injector (Mounjaro) Allergy/AdvReac Type Severity Reaction Status Date / Time adhesive Allergy Rash Verified 01/10/24 21:35 aspirin (ASA) Allergy Anaphylaxis Verified 01/10/24 21:35 atorvastatin (From Lipitor) Allergy Unknown Verified 01/10/24 21:35 Dressing: Non-Medicated Allergy Rash Verified 01/10/24 21:35 exenatide (From Byetta) Allergy Unknown Verified 01/10/24 21:35 ezetimibe (From Zetia) Allergy Rash Verified 01/10/24 21:35 irbesartan (From Avapro) Allergy Swelling Verified 01/10/24 21:35 niacin Allergy Unknown Verified 01/10/24 21:35 Penicillins Allergy Rash Verified 01/10/24 21:35 pravastatin Allergy Rash Verified 01/10/24 21:35 rosuvastatin (From Crestor) Allergy Unknown Verified 01/10/24 21:35 simvastatin (From Zocor) Allergy Rash Verified 01/10/24 21:35 Btlzrmm-DPC-KrV Reductase Allergy Other Verified 01/10/24 21:35 Inhibitor (Zoqcwiw-Qrg-Rwx Reductase Inhibitor) egg AdvReac Diarrhea Verified 01/10/24 21:35 erythromycin base AdvReac Other Verified 01/10/24 21:35 etodolac AdvReac Unknown Verified 01/10/24 21:35 metformin AdvReac Diarrhea Verified 01/10/24 21:35 NSAIDS (Non-Steroidal AdvReac Other Verified 01/10/24 21:35 Anti-Inflamma Sulfa (Sulfonamide AdvReac Rash Verified 01/10/24 21:35 Antibiotics) Surgical History (Updated 01/10/24 @ 23:[address] Kerwin Kumar, DO) History of colon surgery Hx of sinus surgery Hx of tubal ligation Hx of gastric bypass History of hernia surgery History of total right knee replacement Social History household members: spouse Smoking Status: Never smoker substance use type: does not use ROS ROS ED Constitutional Constitutional ED: Denies chills or fever(s) Eyes Eyes: Denies blurry vision or change in vision ENT ENT ED: Denies rhinorrhea or sore throat Cardiovascular Cardiovascular: Denies chest pain or palpitations Respiratory/Chest Respiratory/Chest: Denies cough or dyspnea Gastrointestinal Gastrointestinal: Denies nausea or vomiting Genitourinary Genitourinary ED: Denies dysuria or hematuria Musculoskeletal Musculoskeletal: Reports back pain; Denies neck pain Integumentary Denies abscess or rash Neurologic Neurologic: Denies headache(s) or weakness Allergic/Immunologic Allergic/Immunologic ED: Denies mouth swelling or urticaria EXAM Physical Exam Const Vital Signs: 01/10/24 21:31 01/10/24 21:33 Temperature 96.7 F L Temperature Source Temporal Pulse Rate 104 H Respiratory Rate 19 H Respiratory Effort Normal Blood Pressure 185/104 H Blood Pressure Mean 131 Pulse Ox 100 Oxygen Delivery Method Room Air Positive well nourished and well developed General Appearance ED: well developed and NAD HEENT atraumatic Neck full ROM Resp normal respiratory effort and clear to auscultation bilaterally Cardio regular rhythm Rate: regular rate GI non-tender and non-distended Palpation: soft Extremity Extremity Narrative: The left lower extremity is shortened and externally rotated. There is pain with internal and external rotation of the left hip. There is tenderness to palpation over the anterior and lateral aspects of the left hip. Pedal pulses are equal bilaterally. Sensation was intact to light touch in all digits. Capillary refill was less than 2 seconds in all digits. General Extremety ED: Yes deformity General Extremity: deformity Neuro oriented x3, CN's II-XII intact bilaterally, moves all extremities, no focal motor deficits and no sensory deficits noted [place] Coma Scale: document GCS findings Spontaneous Obeys Commands Oriented 15 Sensorium / Orientation: alert Motor Exam: strength 5/5 throughout Psych mental status grossly normal and thought process normal MDM MDM MDM Narrative Medical decision making narrative: Differential diagnosis includes hip fracture, contusion, and pelvic fracture. X-rays of the left hip will be obtained to assess for hip fracture and pelvic fracture. Lab Data Lab results narrative: CBC was reviewed and was within normal limits. Comprehensive metabolic profile was reviewed. BUN was slightly elevated at 23. Alkaline phosphatase was slightly elevated at 130. The remainder was essentially within normal limits. PT with INR and PTT were reviewed. Pro time was 15.9 and INR is 1.3. PTT was 29.9. Radiography Chest X-Ray - ED: 1 View, Read by ED Physician, Read by Radiologist and No Acute Disease Diagnostic Testing: X-rays of the left hip were obtained. There are 3 views. On my independent interpretation, there is a intertrochanteric fracture of the left hip. There is minimal displacement. Radiologist also interpreted the x-rays and agrees. Portable 1 view chest x-ray was obtained. On my independent interpretation, lung landin are clear. There is normal cardiac silhouette. Bony thorax is normal. There is no acute process noted. Radiologist also interpreted the x- ray and agrees. EKG Initial EKG: Attestation: I personally reviewed and interpreted this EKG as follows: Interpretation: Sinus Tachycardia (105 with frequent PVCs) Comments: EKG was obtained. On my independent interpretation, it shows a sinus tachycardia with a rate of 105 with frequent PVCs. There is minimal voltage criteria for LVH. There are no acute ST or T wave changes noted. SC interval was normal at 184 ms. QRS interval was normal at 80 ms. QTc interval was normal at 4 and 59 ms. There is borderline left axis deviation at -17. Prior EKG tracings: available for review Prior: Unchanged (02/16/2022) Treatment and Re-Evaluation Narrative: Patient was given morphine and Zofran. Patient was advised of her findings. Because of the hip fracture, medical screening labs will be obtained. EKG will be obtained to assess for cardiac dysrhythmia and cardiac ischemia. Chest x-ray will be obtained to assess for pneumonia. CBC will be obtained to assess for leukocytosis and anemia. Comprehensive metabolic profile will be obtained to assess for hepatic function, renal function, and electrolyte abnormality. PT with INR and PTT will be obtained to assess for coagulopathy. Case was discussed with Dr. Pepper from orthopedics. He recommended keeping the patient n.p.o. after midnight and holding the patient's Eliquis. Case was discussed with the hospitalist. He will admit the patient to his service. Patient understood and was agreeable with the plan. All questions were answered. Discharge Plan Triage Chief Complaint: Fall ED Provider: Kerwin Kumar Dx/Rx/DC Orders Clinical Impression: Closed intertrochanteric fracture of left hip, Diabetes mellitus, type 2, Fall Prescriptions: No Action calcitriol 0.5 MCG capsule 0.5 mcg PO DAILY Patient Comments: gabapentin 300 MG capsule 300 mg PO QHS Patient Comments: metformin 500 MG tablet 2,000 mg PO DAILY Patient Comments: take 1 tablet by mouth twice a day with meals oxybutynin chloride 10 MG tablet extended release 24hr 10 mg PO DAILY PRN PRN (Reason: overactive bladder) lidocaine HCl 1 APPLIC jelly 1 applic TP TID calcium carbonate-vitamin D3 1 EACH tablet 1 ea PO TID acetaminophen 500 MG tablet 500 mg PO QHS ascorbic acid (vitamin C) 500 MG tablet 500 mg PO DAILY hydrocodone-acetaminophen 1 EACH tablet 1 ea PO 4X/DAY PRN PRN (Reason: Pain Or Fever) cyanocobalamin (vitamin B-12) 1,000 MCG/ML solution 1,000 mcg IM Q30D multivitamin with minerals 1 EACH tablet 1 ea PO DAILY clobetasol-emollient 15 GM cream 1 applic TP QHS biotin 2,500 MCG capsule 2,500 mcg PO DAILY cetirizine 10 MG capsule 10 mg PO DAILY rivaroxaban 15 MG tablet 15 mg PO BID Qty: 42 0RF apixaban 5 MG tablet 5 mg PO BID Qty: 74 0RF Rx Instructions: 10 mg twice a day for the first week. Then 5 mg twice a day. tamsulosin [Flomax] 0.4 mg capsule 0.4 mg PO DAILY 14 Days Qty: 14 0RF morphine [MS Contin] 15 mg tablet extended release 15 mg PO TID PRN PRN (Reason: pain) 5 Days Qty: 15 0RF ondansetron 4 mg tablet,disintegrating 4 mg PO TID PRN PRN (Reason: nausea and vomiting) Qty: 21 0RF hydrocodone-acetaminophen [hydrocodone-acetaminophen] 5-325 mg tablet 1 tab PO Q4H PRN PRN (Reason: Pain) 3 Days Qty: 15 0RF ciprofloxacin HCl [ciprofloxacin HCl] 500 mg tablet 500 mg PO BID Qty: 20 0RF Primary Care Provider: Aria Helms Referrals: Aria Helms MD [Primary Care Provider] - Print Language: [place]an Disposition Disposition: Home, Self Care
[2024-01-10] MEDS: Ondansetron 4 MG/2 ML Vial IV ×2 (22:03→23:50)
[2024-01-10] MEDS: Morphine 4 MG/ML Syringe IV (22:03)
[2024-01-10 22:16] LABS: Absolute Lymphocyte Count 1.56 X10^3/uL (0.83-4.51); Absolute Neutrophil Count 7.5 X10^3/uL (2.0-7.7); Basophil# 0.07 X10^3/uL; Basophil% 0.7 % (0-1); Eosinophil# 0.18 X10^3/uL; Eosinophils% 1.7 % (0-5); Hematocrit 40.8 % (37-47); Lymphocyte # 1.56 X10^3/ul (0.83-4.51); Lymphocyte % 15.1 % (19-41); Mean Corp Hgb Conc 31.9 g/dL (32-36); Mean Corpuscular Hgb 28.8 pg (27.0-32.0); Mean Corpuscular Volume 90.5 fL (81-99); Mean Platelet Vol. 10.8 fl (6.2-12.0); Monocyte# 0.96 X10^3/uL; Monocyte% 9.3 % (0-10); NRBC Flagged by Analyzer 0 % (0-5); Neutrophil # 7.52 X10^3/uL (2.7-7.7); Neutrophil % 72.5 % (47-70); Platelet Count 322 K/mm3 (150-450); RBC Distribution Width CV 14.5 % (11.6-14.6); RBC Distribution Width SD 47.7 fl (35.1-43.9); Red Blood Count 4.51 M/mm3 (4.2-5.4); White Blood Count 10.4 K/mm3 (4.4-11.0)
[2024-01-10 22:26] LABS: International Normalized Ratio 1.3; Prothrombin Time (Protime)PT. 15.9 SECONDS (11.7-14.9)
[2024-01-10 22:27] LABS: Partial Thromboplast Time 29.9 Seconds (24.1-36.2)
[2024-01-10 22:32] LABS: ALB/GLOB Ratio 0.7 RATIO (0.9-2.4); AST(SGOT) 13 U/L (15-37); Alanine Aminotransfer ALT/SGPT 18 U/L (13-56); Alkaline Phosphatase 130 U/L (45-117); Anion Gap 5 (5-15); BUN 23 mg/dL (7-18); BUN/Creat Ratio 36.1 RATIO (10-20); Calcium,Total 9.1 mg/dL (8.5-10.1); Chloride 105 mmol/L (98-107); Creatinine, Serum 0.64 mg/dL (0.55-1.02); EST Glomerular Filtration Rate 95 mL/min (>60); Est Glom Filt Rate - Afr Amer 115 mL/min (>60); Estimated Creatinine Clearance 62.57 ml/min; Globulin 4.5 g/dL (2.2-4.2); Glucose 168 mg/dL (74-106); Potassium 3.7 mmol/L (3.5-5.1); Protein, Total 7.5 g/dL (6.4-8.2); Sodium Level 135 mmol/L (136-145)
--- NOTE | 2024-01-10 23:14 | HP.PCM.HOS_ITS ---
[facility] - General General Date of Admission: 01/10/24 Date of Service: 01/10/24 Chief Complaint: Fall with Left Hip Fracture. [facility] Narrative MARIELA DOLL, is a 83 F with a past medical history of essential hypertension, hyperlipidemia, DM-2; of unknown control on metformin and Mounjaro, obesity; with BMI of 32.2 this admission, history of gastric bypass, history of PE; on Xarelto, history of pernicious anemia, history of chest pain, history of vertebral compression fracture, OA; with history of Bilateral TKR's and history of overactive bladder with frequent UTIs who presents to [facility] ER complaining of Left hip pain after fall. Ms. Doll reports her symptoms began approximately 1 hour prior to arrival when she went to stand up from a table when she suddenly lost her balance and fell onto her Left hip with subsequent inability to ambulate. She denies loss of consciousness or significant head trauma with her fall but she has little recollection of the details surrounding the event as she explains that she just stood up to go to the bathroom and then quickly fell onto the floor without warning. She denies chest pain with activity, a known history of coronary artery disease or having to limit her activity due to shortness of breath. She admits to frequent UTIs and other urinary problems but she denies other recent illness. She denies associated fever, chills, nausea, vomiting, diarrhea or constipation. In the ER her x-rays were positive for evidence of a closed intertrochanteric Left hip fracture after a mechanical fall and she was then admitted to the general medical floor for ongoing care for a stay that is expected to extend beyond 2 midnights. [facility] Medical History Back fracture Diabetes HTN (hypertension) Pulmonary emboli Home Medications ?Medication ?Instructions ?Recorded ?Last Taken ?Type calcitriol 0.5 mcg capsule 0.5 mcg PO DAILY 03/04/15 Unknown History acetaminophen 500 mg tablet 500 mg PO QHS 03/31/19 Unknown History ascorbic acid (vitamin C) 500 mg 500 mg PO DAILY 03/31/19 Unknown History tablet biotin 2,500 mcg capsule 2,500 mcg PO DAILY 03/31/19 Unknown History calcium carbonate 600 mg-vitamin 2 tab PO DAILY 03/31/19 Unknown History D3 5 mcg (200 unit) tablet cyanocobalamin (vitamin B-12) 1,000 mcg IM Q30D 03/31/19 Unknown History 1,000 mcg/mL injection solution multivitamin with minerals 1 ea PO DAILY 03/31/19 Unknown History oxybutynin chloride 10 mg 10 mg PO QHS overactive bladder 03/31/19 Unknown History tablet,extended release 24 hr apixaban 5 mg tablet 5 mg PO BID #74 tabs 08/27/20 Unknown Rx cholecalciferol (vitamin D3) 50 100 mcg PO DAILY 01/10/24 Unknown History mcg (2,000 unit) capsule duloxetine 20 mg capsule,delayed 40 mg PO DAILY 01/10/24 Unknown History release (Cymbalta) ferrous sulfate 325 mg (65 mg 325 mg PO DAILY 01/10/24 Unknown History iron) tablet (Iron (ferrous sulfate)) fluconazole 200 mg tablet 200 mg PO MOWEFR 01/10/24 Unknown History (Diflucan) loratadine 10 mg tablet (Claritin) 10 mg PO DAILY 01/10/24 Unknown History melatonin 3 mg capsule 3 mg PO QHS 01/10/24 Unknown History nitrofurantoin 1 cap PO BID 01/10/24 Unknown History monohydrate/macrocrystals 100 mg capsule tirzepatide 5 mg/0.5 mL 5 mg subcut QWEEK 01/10/24 Unknown History subcutaneous pen injector (Mounjaro) Allergy/AdvReac Type Severity Reaction Status Date / Time adhesive Allergy Rash Verified 01/10/24 21:35 aspirin (ASA) Allergy Anaphylaxis Verified 01/10/24 21:35 atorvastatin (From Lipitor) Allergy Unknown Verified 01/10/24 21:35 Dressing: Non-Medicated Allergy Rash Verified 01/10/24 21:35 exenatide (From Byetta) Allergy Unknown Verified 01/10/24 21:35 ezetimibe (From Zetia) Allergy Rash Verified 01/10/24 21:35 irbesartan (From Avapro) Allergy Swelling Verified 01/10/24 21:35 niacin Allergy Unknown Verified 01/10/24 21:35 Penicillins Allergy Rash Verified 01/10/24 21:35 pravastatin Allergy Rash Verified 01/10/24 21:35 rosuvastatin (From Crestor) Allergy Unknown Verified 01/10/24 21:35 simvastatin (From Zocor) Allergy Rash Verified 01/10/24 21:35 Crjgreh-EHH-VpG Reductase Allergy Other Verified 01/10/24 21:35 Inhibitor (Sxatsnt-Cew-Tti Reductase Inhibitor) egg AdvReac Diarrhea Verified 01/10/24 21:35 erythromycin base AdvReac Other Verified 01/10/24 21:35 etodolac AdvReac Unknown Verified 01/10/24 21:35 metformin AdvReac Diarrhea Verified 01/10/24 21:35 NSAIDS (Non-Steroidal AdvReac Other Verified 01/10/24 21:35 Anti-Inflamma Sulfa (Sulfonamide AdvReac Rash Verified 01/10/24 21:35 Antibiotics) Surgical History History of colon surgery Hx of sinus surgery Hx of tubal ligation Hx of gastric bypass History of hernia surgery History of total right knee replacement Social History household members: spouse Smoking Status: Never smoker substance use type: does not use ROS ROS Narrative Review of systems: General: Patient denies fever or chills. HENT: Denies headache, denies stuffy nose, denies sore throat EYES: Denies changes in vision or discharge from eyes. Resp: Denies cough, denies shortness of breath Cardiac: Denies chest pain, palpitations or heart racing. GI: Denies abdominal pain, denies changes in bowel, denies nausea or vomiting. : Patient admits to frequent UTIs and is currently on nitrofurantoin along with scheduled Diflucan (-W-). Extremity: Patient admits to persistent pain with inability to ambulate after falling onto her Left hip. Musculoskeletal: Feels somewhat generally weak and unwell with the patient having Left hip pain but no myalgias. Neuro: Patient denies headache, paresthesias or focal neurologic deficits. Heme: Denies any bleeding or bruising Skin: Denies rashes Psychiatric: No complaints voiced related to uncontrolled depression or anxiety. Endocrine: No polyuria, polydipsia or polyphagia. The rest of the 14 point ROS was negative except for positives in HPI. Vital Signs Vital Signs Vital Signs: 01/10/24 21:31 01/10/24 21:33 Temperature 96.7 F L Temperature Source Temporal Pulse Rate 104 H Respiratory Rate 19 H Respiratory Effort Normal Blood Pressure 185/104 H Blood Pressure Mean 131 Pulse Ox 100 Oxygen Delivery Method Room Air Weight Weight: 200 lb Body Mass Index (BMI) 32.3 Physical Exam Const alert, oriented x3 and no apparent distress General Appearance: cooperative HEENT normocephalic, head/scalp atraumatic, hearing grossly normal bilaterally and moist oral mucous membranes Eyes PERRL and EOMs intact bilaterally Neck no lymphadenopathy and supple Resp normal respiratory effort, no retractions, no use of accessory muscles and clear to auscultation bilaterally Cardio regular rate and regular rhythm GI normal to inspection, nondistended, normoactive bowel sounds, soft to palpation, non-tender and non-distended GI Narrative: Obese. Extremity Extremity Narrative: Left lower extremity shortened and externally rotated but with no signs of vascular compromise. Skin Skin Narrative: Patient has no evidence of rash, jaundice or abscess. Neuro oriented x3, CN's II-XII intact bilaterally, moves all extremities and no focal motor deficits Sensorium / Orientation: awake, alert, oriented to person, oriented to place and oriented to time Speech: speech normal Psych Psych Narrative: Patient is very uncomfortable after recent catheter placement and she appears anxious at this time. Mood & Affect: anxious Results Medical Records Data Attestation: I reviewed the patient's medical records Lab / Micro Data Attestation: I reviewed the patient's lab results. 01/10/24 22:05 01/10/24 22:05 Labs: Laboratory Results - last 24 hr 01/10/24 22:05: WBC 10.4, RBC 4.51, Hgb 13.0, Hct 40.8, MCV 90.5, MCH 28.8, MCHC 31.9 L, RDW Std Deviation 47.7 H, RDW Coeff of Gail 14.5, Plt Count 322, MPV 10.8, Immature Gran % (Auto) 0.700, Neut % (Auto) 72.5 H, Lymph % (Auto) 15.1 L, [place]pp % (Auto) 9.3, Eos % (Auto) 1.7, Baso % (Auto) 0.7, Absolute Neuts (auto) 7.5, Absolute Lymphs (auto) 1.56, Nucleated RBC % 0, PT 15.9 H, INR 1.3, APTT 29.9, Sodium 135 L, Potassium 3.7, Chloride 105, Carbon Dioxide 25.0, Anion Gap 5, BUN 23 H, Creatinine 0.64, Estim Creat Clear Calc 62.57, Est GFR (MDRD) Af Amer 115, Est GFR (MDRD) Non-Af 95, BUN/Creatinine Ratio 36.1 H, Glucose 168 H, Calcium 9.1, Total Bilirubin 0.30, AST 13 L, ALT 18, Alkaline Phosphatase 130 H, Total Protein 7.5, Albumin 3.0 L, Globulin 4.5 H, Albumin/Globulin Ratio 0.7 L Imaging [facility] Imaging Services [address] [place], [place] [id number] Chest 1 View (Portable) MR#: [id number] Acct: [id number] Name: MARIELA DOLL Rep #: [id number] : 1940 F 83 From: Napoleon Orlando MD PCP: Dr. Aria Helms MD Status: [facility] ER Study: Chest 1 View (Portable) Date of Exam: 01/10/24 Exam# [id number] Ordering Dr: Kerwin Kumar DO INDICATION: Cough EXAMINATION/TECHNIQUE: X-RAY - XR Chest 1 View COMPARISON: 08/27/2020. FINDINGS: LINES/DEVICES: None. LUNGS: No consolidation or evidence of an effusion. No evidence of edema or a pneumothorax. MEDIASTINUM AND CARDIOVASCULAR STRUCTURES: Cardiac silhouette is normal in size and contour. Mediastinum is unremarkable. BONES AND SOFT TISSUES: No acute abnormality. RAD/Chest 1 View (Portable) IMPRESSION: No evidence of acute cardiopulmonary disease. Electronically Signed: Napoleon Orlando DO at 23:27 EDT , CC: Dr. Kerwin Kumar DO; Dr. Aria Helms MD ~ Horse Doctor: Signed [facility] Imaging Services [address] [place] [id number] HIP, UNI W/ Pelvis 2-3 Views MR#: [id number] Acct: [id number] Name: MARIELA DOLL Kayleigh Rep #: [id number] : 1940 F 83 From: Napoleon Orlando MD PCP: Dr. Aria Helms MD Status: REG ER Study: HIP, UNI W/ Pelvis 2-3 Views Date of Exam: 01/10/24 Exam# [id number] Ordering Dr: Kerwin Kumar DO INDICATION: Injury/Pain EXAMINATION/TECHNIQUE: X-RAY - LEFT XR Hip Unilateral with Pelvis when performed; 2-3 Views COMPARISON: 06/12/2023. FINDINGS: SOFT TISSUES: Unremarkable. BONES/JOINTS: Comminuted displaced and angulated intertrochanteric fracture of the left femur. No dislocation. Moderate right and mild left degenerative changes of the hips. No erosive changes. RAD/HIP, UNI W/ Pelvis 2-3 Views IMPRESSION: Comminuted, displaced and angulated intertrochanteric fracture of the left femur. Electronically Signed: Napoleon OrlandoDO at 23:25 EDT Reading Location ID and State: [facility] / [place] Tel , Service support , CC: Dr. Kerwin Kumar DO; Dr. Aria Helms MD ~ Horse Doctor: Signed Assessment & Plan Assessment/Plan (1) Closed intertrochanteric fracture of left hip: QUALIFIERS: Encounter type: initial encounter Fracture alignment: displaced Qualified Code(s): S72.142A - Displaced intertrochanteric fracture of left femur, initial encounter for closed fracture (2) History of pulmonary embolus (PE): (3) History of hypercholesterolemia: (4) History of hypertension: (5) History of pernicious anemia: (6) Diabetes mellitus, type 2: QUALIFIERS: Diabetes mellitus complication status: without complication Diabetes mellitus intermodal dispatcher insulin use: without intermodal dispatcher use Q ualified Code(s): E11.9 - Type 2 diabetes mellitus without complications (7) Obesity (BMI 30.0-34.9): (8) History of chest pain: PLAN: Plan 1. Closed intertrochanteric Left hip fracture after mechanical fall - Admit to general medical floor. Keep n.p.o. for upcoming ORIF. Give Tylenol as needed for gimo-zu-gnogiesy (level 1-5/10) pain or fever. Give morphine IV as needed for severe (level 6-10/10) pain. Finally, we will consult Dr. Pepper of the orthopedic service see this patient on rounds in the a.m. for further recommendations regarding ORIF with help appreciated in advance. 2. History of PE; on Eliquis complicating #1 - Patient's ORIF may be delayed until Wednesday in order to allow for her NOAC to wear off in an effort to decrease potential risk of bleeding complications. 3. Essential hypertension - Give IV hydralazine as needed for systolic blood pressure greater than 160 mmHg. 4. Hyperlipidemia - Resume statin as previous. 5. DM-2; of unknown control on metformin - Hold metformin while inpatient. Check fingerstick blood sugars every 6 hours while NPO and cover with lowest intensity sliding scale insulin. 6. Obesity; with BMI of 32.2 this admission and history of gastric bypass - Weight loss will be recommended. 7. History of pernicious anemia - Noted With hemoglobin of 13 g/dL with hemoglobin of 13 g/dL and MCV of 90.5 fL present on admission. 8. History of chest pain - Stable with no recent complaint of chest pain. 9. History of vertebral compression fracture - Stable 10. OA; with history of Bilateral TKR's - Noted. 11. DVT prophylaxis - SCD on RLE only at this time as we will avoid preoperative blood thinners in cases of traumatic fracture to minimize risk of potential bleeding complications. Orthopedic surgeon to decide on postoperative DVT prophylaxis. Total time: Approximately 75 minutes. Charges/Coding Visit Charges Inpatient E&M: 59643 Init Hosp L3
[2024-01-10 23:28] VITALS: BP 124/67; PULSE 108; RESP 18; TEMP 36.6; O2SAT 96
[2024-01-10 23:30] VITALS: BP 124/67; PULSE 108; RESP 18; TEMP 36.6; O2SAT 96
[2024-01-10] MEDS: HYDROmorphone 1 MG/ML Syringe 0.5 MG IV (23:49)
[2024-01-11] VITALS (17 sets, daily range): BP systolic 89–152; BP diastolic 50–78; PULSE 57–107; RESP 15–18; TEMP 36.2–36.8; O2SAT 93–98; BMI 31.4; BMI 31.3
[2024-01-11] MEDS: 0.9% Normal Saline (1000mL) 1,000 ML 70 ML IV (00:42)
[2024-01-11] MEDS: Morphine 2 MG/ML Syringe IV ×4 (00:50→13:18)
[2024-01-11] MEDS: Acetaminophen 500 MG Tablet PO ×2 (02:24→21:14)
--- NOTE | 2024-01-11 04:44 | NURSING ---
[facility] phone call from daughter Sara Black (POA), she informed this nurse that patient's code status is DNR, no intubation. Sara stated the paperwork should be on file at [facility] but if not would not be a problem to bring in a copy. daughter reports that she and patient had a thorough discussion with Dr. Helms regarding code status.
[2024-01-11 06:20] LABS: Bedside Glucose 181 mg/dL (74-106)
[2024-01-11 07:07] LABS: Absolute Lymphocyte Count 1.25 X10^3/uL (0.83-4.51); Absolute Neutrophil Count 10.9 X10^3/uL (2.0-7.7); Basophil# 0.07 X10^3/uL; Basophil% 0.5 % (0-1); Eosinophil# 0.02 X10^3/uL; Eosinophils% 0.1 % (0-5); Hemoglobin 11.7 g/dL (12.0-15.0); Lymphocyte # 1.25 X10^3/ul (0.83-4.51); Lymphocyte % 9.3 % (19-41); Mean Corp Hgb Conc 31.6 g/dL (32-36); Mean Corpuscular Hgb 29.2 pg (27.0-32.0); Mean Corpuscular Volume 92.3 fL (81-99); Mean Platelet Vol. 11.4 fl (6.2-12.0); Monocyte# 1.14 X10^3/uL; Monocyte% 8.5 % (0-10); NRBC Flagged by Analyzer 0 % (0-5); Neutrophil % 80.9 % (47-70); Platelet Count 289 K/mm3 (150-450); RBC Distribution Width CV 14.5 % (11.6-14.6); RBC Distribution Width SD 48.6 fl (35.1-43.9); Red Blood Count 4.01 M/mm3 (4.2-5.4); White Blood Count 13.5 K/mm3 (4.4-11.0)
[2024-01-11 07:48] LABS: ALB/GLOB Ratio 0.6 RATIO (0.9-2.4); AST(SGOT) 11 U/L (15-37); Alanine Aminotransfer ALT/SGPT 14 U/L (13-56); Albumin, Serum 2.7 g/dL (3.2-5.0); Alkaline Phosphatase 123 U/L (45-117); Anion Gap 7 (5-15); BUN 24 mg/dL (7-18); BUN/Creat Ratio 29.8 RATIO (10-20); Calcium,Total 8.9 mg/dL (8.5-10.1); Chloride 107 mmol/L (98-107); EST Glomerular Filtration Rate 73 mL/min (>60); Est Glom Filt Rate - Afr Amer 88 mL/min (>60); Estimated Creatinine Clearance 61.73 ml/min; Globulin 4.2 g/dL (2.2-4.2); Glucose 198 mg/dL (74-106); Magnesium 2.1 mg/dL (1.6-2.6); Phosphorus 3.8 mg/dL (2.5-4.9); Potassium 3.8 mmol/L (3.5-5.1); Protein, Total 6.9 g/dL (6.4-8.2); Sodium Level 137 mmol/L (136-145); Thyroid Stim Hormone (TSH) 1.34 uIU/mL (0.358-3.74)
[2024-01-11] MEDS: 0.9% Saline Lock 10 ML Syringe IV ×2 (09:10→21:14)
--- NOTE | 2024-01-11 09:28 | CONS.ORTHO ---
HPI Consult Data Date of Consult: 01/11/24 HPI Narrative HPI Narrative: MARIELA DOLL, is a 83 F who presents with left hip intertrochanteric fracture. Miriam lives in an assisted living facility and had a ground-level fall last night. I was consulted because her x-rays revealed a left intertrochanteric femur fracture. I saw the patient in 322 this morning. Patient mentions that she has been using a walker for balance for many years prior to this injury. She lives in the assisted living facility with her . She had a tough time maintaining good balance and the walker helped with that. She had bariatric gastric bypass surgery in 2007 after which she has lost good amount of weight. She denies taking any calcium or vitamin D supplementation or a diagnosis of osteopenia or osteoporosis. She takes Eliquis possibly for history of pulmonary embolism. Her last dose of Eliquis was yesterday morning. She is diabetic with her A1c measured this morning of 7.0. She denies any other areas of injury. [facility] Medical History Back fracture Diabetes HTN (hypertension) Pulmonary emboli Home Medications ?Medication ?Instructions ?Recorded ?Last Taken ?Type calcitriol 0.5 mcg capsule 0.5 mcg PO DAILY 03/04/15 Unknown History acetaminophen 500 mg tablet 500 mg PO QHS 03/31/19 Unknown History ascorbic acid (vitamin C) 500 mg 500 mg PO DAILY 03/31/19 Unknown History tablet biotin 2,500 mcg capsule 2,500 mcg PO DAILY 03/31/19 Unknown History calcium carbonate 600 mg-vitamin 2 tab PO DAILY 03/31/19 Unknown History D3 5 mcg (200 unit) tablet cyanocobalamin (vitamin B-12) 1,000 mcg IM Q30D 03/31/19 Unknown History 1,000 mcg/mL injection solution multivitamin with minerals 1 ea PO DAILY 03/31/19 Unknown History oxybutynin chloride 10 mg 10 mg PO QHS overactive bladder 03/31/19 Unknown History tablet,extended release 24 hr apixaban 5 mg tablet 5 mg PO BID #74 tabs 08/27/20 Unknown Rx cholecalciferol (vitamin D3) 50 100 mcg PO DAILY 01/10/24 Unknown History mcg (2,000 unit) capsule duloxetine 20 mg capsule,delayed 40 mg PO DAILY 01/10/24 Unknown History release (Cymbalta) ferrous sulfate 325 mg (65 mg 325 mg PO DAILY 01/10/24 Unknown History iron) tablet (Iron (ferrous sulfate)) fluconazole 200 mg tablet 200 mg PO MOWEFR 01/10/24 Unknown History (Diflucan) loratadine 10 mg tablet (Claritin) 10 mg PO DAILY 01/10/24 Unknown History melatonin 3 mg capsule 3 mg PO QHS 01/10/24 Unknown History nitrofurantoin 1 cap PO BID 01/10/24 Unknown History monohydrate/macrocrystals 100 mg capsule tirzepatide 5 mg/0.5 mL 5 mg subcut QWEEK 01/10/24 Unknown History subcutaneous pen injector (Mounjaro) Allergy/AdvReac Type Severity Reaction Status Date / Time adhesive Allergy Rash Verified 01/10/24 21:35 aspirin (ASA) Allergy Anaphylaxis Verified 01/10/24 21:35 atorvastatin (From Lipitor) Allergy Unknown Verified 01/10/24 21:35 Dressing: Non-Medicated Allergy Rash Verified 01/10/24 21:35 exenatide (From Byetta) Allergy Unknown Verified 01/10/24 21:35 ezetimibe (From Zetia) Allergy Rash Verified 01/10/24 21:35 irbesartan (From Avapro) Allergy Swelling Verified 01/10/24 21:35 niacin Allergy Unknown Verified 01/10/24 21:35 Penicillins Allergy Rash Verified 01/10/24 21:35 pravastatin Allergy Rash Verified 01/10/24 21:35 rosuvastatin (From Crestor) Allergy Unknown Verified 01/10/24 21:35 simvastatin (From Zocor) Allergy Rash Verified 01/10/24 21:35 Hpfqrvw-OIH-NkM Reductase Allergy Other Verified 01/10/24 21:35 Inhibitor (Lmktnuz-Htt-Gwz Reductase Inhibitor) egg AdvReac Diarrhea Verified 01/10/24 21:35 erythromycin base AdvReac Other Verified 01/10/24 21:35 etodolac AdvReac Unknown Verified 01/10/24 21:35 metformin AdvReac Diarrhea Verified 01/10/24 21:35 NSAIDS (Non-Steroidal AdvReac Other Verified 01/10/24 21:35 Anti-Inflamma Sulfa (Sulfonamide AdvReac Rash Verified 01/10/24 21:35 Antibiotics) Surgical History History of colon surgery Hx of sinus surgery Hx of tubal ligation Hx of gastric bypass History of hernia surgery History of total right knee replacement Social History household members: spouse Smoking Status: Never smoker substance use type: does not use Vital Signs Vital Signs Vital Signs: 01/10/24 21:31 01/10/24 21:33 01/10/24 23:28 Temperature 96.7 F L 97.8 F Temperature Source Temporal Pulse Rate 104 H 108 H Respiratory Rate 19 H 18 Respiratory Effort Normal Respiratory Depth Respiratory Pattern Blood Pressure 185/104 H 124/67 H Blood Pressure Mean 131 86 Blood Pressure Source Blood Pressure Position Blood Pressure Location Pulse Ox 100 96 Oxygen Delivery Method Room Air 01/10/24 23:30 01/11/24 00:35 01/11/24 00:36 Temperature 97.8 F 97.8 F Temperature Source Temporal Oral Pulse Rate 108 H 57 L Respiratory Rate 18 15 18 Respiratory Effort Normal Non-Labored Respiratory Depth Normal Respiratory Pattern Normal Blood Pressure 124/67 H 133/75 H Blood Pressure Mean 86 94 Blood Pressure Source Monitor Blood Pressure Position Supine Blood Pressure Location Right Arm Pulse Ox 96 95 Oxygen Delivery Method Room Air Room Air Room Air 01/11/24 05:07 01/11/24 09:00 Temperature 98 F Temperature Source Oral Pulse Rate 100 Respiratory Rate 18 Respiratory Effort Normal Non-Labored Respiratory Depth Normal Respiratory Pattern Normal Blood Pressure 130/66 H Blood Pressure Mean 87 Blood Pressure Source Monitor Blood Pressure Position Supine Blood Pressure Location Right Arm Pulse Ox 96 Oxygen Delivery Method Room Air Room Air Weight Weight: 194 lb 10.691 oz Body Mass Index (BMI) 31.3 Physical Exam Narrative Examination of the left hip does not show any skin changes bruises or openings. Significant tenderness over the left hip noticed. Hip is not external rotation. Distal neurovascular exam is intact. Patient has significant pain and was not comfortable in bed. Lab / Micro Data 01/11/24 06:35 01/11/24 06:35 Labs: Laboratory Results - last 24 hr 01/10/24 22:05: WBC 10.4, RBC 4.51, Hgb 13.0, Hct 40.8, MCV 90.5, MCH 28.8, MCHC 31.9 L, RDW Std Deviation 47.7 H, RDW Coeff of Gail 14.5, Plt Count 322, MPV 10.8, Immature Gran % (Auto) 0.700, Neut % (Auto) 72.5 H, Lymph % (Auto) 15.1 L, [place] % (Auto) 9.3, Eos % (Auto) 1.7, Baso % (Auto) 0.7, Absolute Neuts (auto) 7.5, Absolute Lymphs (auto) 1.56, Nucleated RBC % 0, PT 15.9 H, INR 1.3, APTT 29.9, Sodium 135 L, Potassium 3.7, Chloride 105, Carbon Dioxide 25.0, Anion Gap 5, BUN 23 H, Creatinine 0.64, Estim Creat Clear Calc 62.57, Est GFR (MDRD) Af Amer 115, Est GFR (MDRD) Non-Af 95, BUN/Creatinine Ratio 36.1 H, Glucose 168 H, Calcium 9.1, Total Bilirubin 0.30, AST 13 L, ALT 18, Alkaline Phosphatase 130 H, Total Protein 7.5, Albumin 3.0 L, Globulin 4.5 H, Albumin/Globulin Ratio 0.7 L 01/11/24 05:57: POC Glucose 181 H 01/11/24 06:35: WBC 13.5 H, RBC 4.01 L, Hgb 11.7 L, Hct 37.0, MCV 92.3, MCH 29.2, MCHC 31.6 L, RDW Std Deviation 48.6 H, RDW Coeff of Gail 14.5, Plt Count 289, MPV 11.4, Immature Gran % (Auto) 0.700, Neut % (Auto) 80.9 H, Lymph % (Auto) 9.3 L, [place] % (Auto) 8.5, Eos % (Auto) 0.1, Baso % (Auto) 0.5, Absolute Neuts (auto) 10.9 H, Absolute Lymphs (auto) 1.25, Nucleated RBC % 0, Sodium 137, Potassium 3.8, Chloride 107, Carbon Dioxide 23.0, Anion Gap 7, BUN 24 H, Creatinine 0.80, Estim Creat Clear Calc 61.73, Est GFR (MDRD) Af Amer 88, Est GFR (MDRD) Non-Af 73, BUN/Creatinine Ratio 29.8 H, Glucose 198 H, Hemoglobin A1c 7.0 H, Calcium 8.9, Phosphorus 3.8, Magnesium 2.1, Total Bilirubin 0.40, AST 11 L, ALT 14, Alkaline Phosphatase 123 H, Total Protein 6.9, Albumin 2.7 L, Globulin 4.2, Albumin/Globulin Ratio 0.6 L, TSH 1.34, Blood Type Cancelled, Antibody Screen Cancelled 01/11/24 07:38: Blood Type O POSITIVE, Antibody Screen NEGATIVE Imaging Radiology Impression Chest X-Ray 01/10/24 21:49 IMPRESSION: No evidence of acute cardiopulmonary disease. Electronically Signed: Napoleon Orlando DO at 23:27 EDT , Hip/Pelvis X-Ray 01/10/24 21:49 IMPRESSION: Comminuted, displaced and angulated intertrochanteric fracture of the left femur. Electronically Signed: Napoleon Orlando DO at 23:25 EDT , Assessment & Plan Assessment/Plan (1) Closed intertrochanteric fracture of left hip: QUALIFIERS: Encounter type: initial encounter Fracture alignment: displaced Qualified Code(s): S72.142A - Displaced intertrochanteric fracture of left femur, initial encounter for closed fracture PLAN: Plan I evaluated the x-rays done in the ER last night. She has an intertrochanteric fracture of the left femur with comminution and shortening. osteopenia noticed. I explained to her that she has left femoral intertrochanteric fracture. This is a surgical fracture is nonoperative treatment might lead to recumbency complications. Surgery would allow her to get back onto mobility at the earliest reducing recumbency complications. Surgical options were discussed. Left hip femoral gamma nailing was discussed. All risk benefits and alternatives were discussed. The risks include but are not limited to infection, bleeding, hematoma formation, need for further surgery, nonunion, malunion, shortening, limb length discrepancy, persistent pain, persistent limp, randolph-implant fracture, hardware failure, hip arthritis, DVT, pulm embolism, pneumonia, atelectasis, cardiopulmonary event, . Patient understands and agrees to proceed with surgery. Patient will be scheduled for surgery after medical clearance later today. She will continue to be n.p.o. I recommended Womack's traction while waiting for surgery to help with some of her pain. Charges/Coding Visit Charges Inpatient E&M: 20538 Init Hosp L3
--- NOTE | 2024-01-11 09:50 | CASEMGMT ---
Discharge Planning A list of?SNF providers including quality and resource use data and consistent with the patient's preferred geographic region, medical needs, and insurance network was created in [employer] Guide.? This list was provided to the SW. Kori Nieto Discharge Planning Asst.
--- NOTE | 2024-01-11 10:56 | PN.HOSP_ITS ---
Subjective Subjective Doing well, plan for surgery today. Objective Data Objective Data Vital Signs: Vital Signs Temp Pulse Resp BP Pulse Ox O2 Del Method 98 F 100 18 130/66 H 95 Room Air 01/11/24 09:00 01/11/24 09:00 01/11/24 09:00 01/11/24 09:00 01/11/24 10:10 01/11/24 10:10 Oxygen Delivery Method Room Air Weight: 194 lb 10.691 oz Body Mass Index (BMI) 31.3 Intake & Output: Intake and Output for Last 24 Hours 01/10/24 01/11/24 01/12/24 03:59 03:59 03:59 Output Total 150 / 150 Balance -150 / -150 Lab / Micro Data 01/11/24 06:35 01/11/24 06:35 Labs: Laboratory Results - last 24 hr 01/10/24 22:05: WBC 10.4, RBC 4.51, Hgb 13.0, Hct 40.8, MCV 90.5, MCH 28.8, MCHC 31.9 L, RDW Std Deviation 47.7 H, RDW Coeff of Gail 14.5, Plt Count 322, MPV 10.8, Immature Gran % (Auto) 0.700, Neut % (Auto) 72.5 H, Lymph % (Auto) 15.1 L, [place] % (Auto) 9.3, Eos % (Auto) 1.7, Baso % (Auto) 0.7, Absolute Neuts (auto) 7.5, Absolute Lymphs (auto) 1.56, Nucleated RBC % 0, PT 15.9 H, INR 1.3, APTT 29.9, Sodium 135 L, Potassium 3.7, Chloride 105, Carbon Dioxide 25.0, Anion Gap 5, BUN 23 H, Creatinine 0.64, Estim Creat Clear Calc 62.57, Est GFR (MDRD) Af Amer 115, Est GFR (MDRD) Non-Af 95, BUN/Creatinine Ratio 36.1 H, Glucose 168 H, Calcium 9.1, Total Bilirubin 0.30, AST 13 L, ALT 18, Alkaline Phosphatase 130 H, Total Protein 7.5, Albumin 3.0 L, Globulin 4.5 H, Albumin/Globulin Ratio 0.7 L 01/11/24 05:57: POC Glucose 181 H 01/11/24 06:35: WBC 13.5 H, RBC 4.01 L, Hgb 11.7 L, Hct 37.0, MCV 92.3, MCH 29.2, MCHC 31.6 L, RDW Std Deviation 48.6 H, RDW Coeff of Gail 14.5, Plt Count 289, MPV 11.4, Immature Gran % (Auto) 0.700, Neut % (Auto) 80.9 H, Lymph % (Auto) 9.3 L, [place] % (Auto) 8.5, Eos % (Auto) 0.1, Baso % (Auto) 0.5, Absolute Neuts (auto) 10.9 H, Absolute Lymphs (auto) 1.25, Nucleated RBC % 0, Sodium 137, Potassium 3.8, Chloride 107, Carbon Dioxide 23.0, Anion Gap 7, BUN 24 H, Creatinine 0.80, Estim Creat Clear Calc 61.73, Est GFR (MDRD) Af Amer 88, Est GFR (MDRD) Non-Af 73, BUN/Creatinine Ratio 29.8 H, Glucose 198 H, Hemoglobin A1c 7.0 H, Calcium 8.9, Phosphorus 3.8, Magnesium 2.1, Total Bilirubin 0.40, AST 11 L, ALT 14, Alkaline Phosphatase 123 H, Total Protein 6.9, Albumin 2.7 L, Globulin 4.2, Albumin/Globulin Ratio 0.6 L, TSH 1.34, Blood Type Cancelled, Antibody Screen Cancelled 01/11/24 07:38: Blood Type O POSITIVE, Antibody Screen NEGATIVE Radiography Diagnostic Testing: Radiology Impression Chest X-Ray 01/10/24 21:49 IMPRESSION: No evidence of acute cardiopulmonary disease. Electronically Signed: Napoleon Orlando DO at 23:27 EDT , Hip/Pelvis X-Ray 01/10/24 21:49 IMPRESSION: Comminuted, displaced and angulated intertrochanteric fracture of the left femur. Electronically Signed: Napoleon Orlando DO at 23:25 EDT , Physical Exam Narrative General: Alert, Oriented x3, Cooperative, No apparent distress HEENT: Atraumatic, PERRLA, EOMI, Normocephalic Oral: Moist Mucosa Neck: Supple, No JVD Lungs: Diminished, normal air movement, No rhonchi, No wheeze, No rales Cardiovascular: Regular rate, Regular Rhythm, Normal S1, Normal S2, No murmurs Abdomen: Soft, Non Tender, Non-Distended, No Hepato-splenomegaly Extremities: No edema, Capillary Refill Less than 3 Seconds Skin: No rashes, No breakdown Musculoskeletal: Tenderness to palpation of left hip Neurological: No focal neurological deficits, Motor Exam 5/5 strength throughout, Sensory exam intact to light touch and pain Psych/Mental Status: Normal Affect, Appropriate Assessment & Plan Assessment/Plan (1) Closed intertrochanteric fracture of left hip: QUALIFIERS: Encounter type: initial encounter Fracture alignment: displaced Qualified Code(s): S72.142A - Displaced intertrochanteric fracture of left femur, initial encounter for closed fracture PLAN: Plan 1. Closed intertrochanteric left hip fracture after mechanical fall due to UTI ? N.p.o. ? Pain medications ? Plan for operative repair today, she is low risk ? Her last dose of Eliquis for her history of PE was yesterday morning 2. Recent diagnosis of UTI ? Unfortunately we do not have culture data ? She is on Macrobid which we will continue she missed her morning dose secondary to being n.p.o. but she should be able to take it this evening 3. DM2 ? Will hold her Mounjaro ? Sliding scale insulin ? Accu-Cheks ACHS ? Will monitor make adjustments as necessary 4. Anxiety/depression ? Stable ? Continue with Cymbalta DVT: SCDs Charges/Coding Visit Charges Inpatient E&M: 54431 Subs Hosp L2
[2024-01-11 13:39] LABS: Bedside Glucose 154 mg/dL (74-106)
--- NOTE | 2024-01-11 14:05 | PRE.ANES_ITS ---
ASA Classification* ASA Classification ASA Classification: 3 and E Assessment & Plan Anesthesia* Anesthesia Assessment Anesthesia Assessment: Discussed sedation and/or anesthesia options, risks, benefits, and alternatives with patient/parents/legal guardian/POA. Questions invited. The patient/parents/legal guardian/POA seems to understand and agrees to proceed with anesthesia plan. Reviewed the physical assessment, medical history, allergy history and patient home medications list prior to surgery/procedure/anesthetic and documented any changes. Performed airway and anesthesia risk assessments. Anesthesia Type Anesthesia Type: General (see written pre anesthesia record for full assessment) Anesthesia Focused Assessment* Temperature: 98.2 F Pulse Rate: 101 Blood Pressure: 152/78 Respiratory Rate: 18 Pulse Ox: 96 Airway Assessment Mouth opens: >3 cm Mallampati Score: II Focused Labs Anesthesia Preop lab: CBC WBC 13.5 K/mm3 (4.4-11.0) H 01/11/24 06:35 RBC 4.01 M/mm3 (4.2-5.4) L 01/11/24 06:35 Hgb 11.7 g/dL (12.0-15.0) L 01/11/24 06:35 Hct 37.0 % (37-47) 01/11/24 06:35 Plt Count 289 K/mm3 (150-450) 01/11/24 06:35 CHEMISTRY Potassium 3.8 mmol/L (3.5-5.1) 01/11/24 06:35 Sodium 137 mmol/L (136-145) 01/11/24 06:35 Magnesium 2.1 mg/dL (1.6-2.6) 01/11/24 06:35 Phosphorus 3.8 mg/dL (2.5-4.9) 01/11/24 06:35 BUN 24 mg/dL (7-18) H 01/11/24 06:35 Creatinine 0.80 mg/dL (0.55-1.02) 01/11/24 06:35 Glucose 198 mg/dL (74-106) H 01/11/24 06:35 POC Glucose 154 mg/dL (74-106) H 01/11/24 13:17 TSH 1.34 uIU/mL (0.358-3.74) 01/11/24 06:35 COAG PT 15.9 SECONDS (11.7-14.9) H 01/10/24 22:05 Pre-Assessment Diagnosis/Proposed Procedure Planned Operative Procedure(s): orif of hip Anesthesia History 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 When Was Last Pacemaker Check QUESTION #4 FULL TEXT: You/Your Family Experience fever (hyperthermia) with Anesthesia Last Oral Intake Last Oral intake: Last Oral Intake NPO since Meds taken in AM with sips of water? Meds patient instructed to take am of surgery PONV PONV - gambling supervisor: PONV - gambling supervisor Female HX of Motion Sickness HX of N/V After Surgery Non-Smoker Duration of Surgery greater than 60 minutes Number of Risk Factors PONV Score Height & Weight Height & Weight: Anesthesia: Height & Weight Height 5 ft 6 in 01/11/24 00:35 Weight: 88.3 kg 01/11/24 05:56 Body Mass Index (BMI) 31.3 01/11/24 05:56 Respiratory Assessment Respiratory Assessment - gambling supervisor: Respiratory Tract Infection Hx - gambling supervisor Hx Respiratory Tract Infection No 01/11/24 01:05 STOP Sleep Apnea STOP Sleep Apnea - gambling supervisor: STOP Sleep Apnea - gambling supervisor Hx Hypertension No 01/11/24 00:35 Hx Sleep Apnea No 01/11/24 00:35 CPAP No 03/15/13 19:03 BIPAP No 03/15/13 19:03 Do you snore loudly (louder No 01/11/24 00:35 than talking or can be heard Do you often feel tired/ No 01/11/24 00:35 fatigued/ sleepy during daytime? Has anyone observed you stop No 01/11/24 00:35 breathing during sleep? STOP Results Negative 01/11/24 00:35 QUESTION #5 FULL TEXT : Do you snore loudly (louder than talking or can be heard through closed doors)? 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 Specify any problems Hx of Preganancy in last 3 N/A 01/11/24 00:35 Months Nurse Filling Out Transfusion LSHRINER 01/11/24 00:35 & Questions: Date: 01/11/24 01/11/24 00:35 Time: 01:07 01/11/24 00:35 Patient unable to answer at this time (ie. confused, unrespo /Reproduction History /Reproductive History - gambling supervisor: /Reproductive Hx- gambling supervisor Hx Now No 01/11/24 01:05 Gestational Age (in weeks): EDC: Hx Hx Para Hx Section SAB Active Medications Active Medications: Current Medications Generic Name Dose Route Start Last Admin Trade Name Freq PRN Reason Stop Dose Admin Acetaminophen 500 mg 01/11/24 00:33 01/11/24 02:24 Acetaminophen 500 Mg Tablet PO 500 mg Q6 PRN Administration Pain 1-5/10 Or Fever Ascorbic Acid 500 mg 01/11/24 10:00 01/11/24 08:41 Ascorbic Acid 500 Mg Tablet PO Not Given DAILY CHANEL Cholecalciferol 50 mcg 01/11/24 10:00 01/11/24 08:41 Cholecalciferol (Vit D3) 25 Mcg Tablet (1,000 Units) PO Not Given DAILY CHANEL Cyanocobalamin 1,000 mcg 01/15/24 10:00 Cyanocobalamin (B12) 1,000 Mcg/Ml Vial IM Q30D@1000 [facility] Diphenhydramine HCl 25 mg 01/11/24 06:53 Diphenhydramine 50 Mg/Ml Syringe IV Q6H PRN PRN ITCHING Duloxetine HCl 40 mg 01/11/24 10:00 01/11/24 08:41 Duloxetine Hcl 20 Mg Capsule PO Not Given DAILY [facility] Ferrous Sulfate 325 mg 01/11/24 08:00 01/11/24 08:41 Ferrous Sulfate 325 Mg [facility] Fluconazole 200 mg 01/12/24 10:00 Fluconazole 100 Mg Tablet PO MoWeFr@1000 [facility] Glucagon 1 mg 01/11/24 00:33 Glucagon 1 Mg/Ml Syringe IM X1 PRN HYPOGLYCEMIA Protocol Sodium Chloride 1,000 mls @ 70 mls/hr 01/10/24 23:37 01/11/24 13:56 IV 0 mls/hr .[id number] [facility] Infusion Dextrose 250 mls @ 0 mls/hr 01/11/24 00:33 Dextrose 10%-Water IV .Q0M PRN HYPOGLYCEMIA Protocol As Directed Insulin Human Lispro 0 unit 01/11/24 00:33 01/11/24 13:21 Insulin Lispro 100 Unit/Ml Insuln.Pen SC Not Given Q6 [facility] Protocol Loratadine 10 mg 01/11/24 10:00 01/11/24 08:41 Loratadine 10 Mg Tablet PO Not Given DAILY [facility] Melatonin 3 mg 01/11/24 22:00 Melatonin 3 Mg Tablet PO QHS [facility] Morphine Sulfate 2 mg 01/11/24 00:33 01/11/24 13:18 Morphine 2 Mg/Ml Syringe IV 2 mg Q4 PRN Administration Pain Score 6-10 Nitrofurantoin Macrocrystals 100 mg 01/11/24 10:00 01/11/24 08:41 Nitrofurantoin Macrocrystals 100 Mg Capsule PO Not Given BID [facility] Ondansetron HCl 4 mg 01/10/24 23:37 01/10/24 23:50 Ondansetron 4 Mg/2 Ml Vial IV 4 mg Q4 PRN Administration NAUSEA/VOMITING Ondansetron HCl 4 mg 01/11/24 00:33 Ondansetron 4 Mg/2 Ml Vial IV Q8H PRN PRN NAUSEA/VOMITING Oxycodone HCl 5 mg 01/11/24 11:21 Oxycodone 5 Mg Tablet PO Q4H PRN PRN Pain Score 4-10 Sodium Chloride 10 - 40 ml 01/11/24 00:45 01/11/24 09:10 0.9% Saline Lock 10 Ml Syringe IV 10 ml UD PRN Administration SALINE FLUSH Tolterodine Tartrate 2 mg 01/11/24 22:00 Tolterodine Tartrate 2 Mg Cap.Sa PO QHS [facility] Medical History Back fracture Diabetes HTN (hypertension) Pulmonary emboli Home Medications ?Medication ?Instructions ?Recorded ?Last Taken ?Type calcitriol 0.5 mcg capsule 0.5 mcg PO DAILY 03/04/15 Unknown History acetaminophen 500 mg tablet 500 mg PO QHS 03/31/19 Unknown History ascorbic acid (vitamin C) 500 mg 500 mg PO DAILY 03/31/19 Unknown History tablet biotin 2,500 mcg capsule 2,500 mcg PO DAILY 03/31/19 Unknown History calcium carbonate 600 mg-vitamin 2 tab PO DAILY 03/31/19 Unknown History D3 5 mcg (200 unit) tablet cyanocobalamin (vitamin B-12) 1,000 mcg IM Q30D 03/31/19 Unknown History 1,000 mcg/mL injection solution multivitamin with minerals 1 ea PO DAILY 03/31/19 Unknown History oxybutynin chloride 10 mg 10 mg PO QHS overactive bladder 03/31/19 Unknown History tablet,extended release 24 hr apixaban 5 mg tablet 5 mg PO BID #74 tabs 08/27/20 Unknown Rx cholecalciferol (vitamin D3) 50 100 mcg PO DAILY 01/10/24 Unknown History mcg (2,000 unit) capsule duloxetine 20 mg capsule,delayed 40 mg PO DAILY 01/10/24 Unknown History release (Cymbalta) ferrous sulfate 325 mg (65 mg 325 mg PO DAILY 01/10/24 Unknown History iron) tablet (Iron (ferrous sulfate)) fluconazole 200 mg tablet 200 mg PO MOWEFR 01/10/24 Unknown History (Diflucan) loratadine 10 mg tablet (Claritin) 10 mg PO DAILY 01/10/24 Unknown History melatonin 3 mg capsule 3 mg PO QHS 01/10/24 Unknown History nitrofurantoin 1 cap PO BID 01/10/24 Unknown History monohydrate/macrocrystals 100 mg capsule tirzepatide 5 mg/0.5 mL 5 mg subcut QWEEK 01/10/24 Unknown History subcutaneous pen injector (Mounjaro) Allergy/AdvReac Type Severity Reaction Status Date / Time adhesive Allergy Rash Verified 01/10/24 21:35 aspirin (ASA) Allergy Anaphylaxis Verified 01/10/24 21:35 atorvastatin (From Lipitor) Allergy Unknown Verified 01/10/24 21:35 Dressing: Non-Medicated Allergy Rash Verified 01/10/24 21:35 exenatide (From [place]) Allergy Unknown Verified 01/10/24 21:35 ezetimibe (From Zetia) Allergy Rash Verified 01/10/24 21:35 irbesartan (From Avapro) Allergy Swelling Verified 01/10/24 21:35 niacin Allergy Unknown Verified 01/10/24 21:35 Penicillins Allergy Rash Verified 01/10/24 21:35 pravastatin Allergy Rash Verified 01/10/24 21:35 rosuvastatin (From Crestor) Allergy Unknown Verified 01/10/24 21:35 simvastatin (From Zocor) Allergy Rash Verified 01/10/24 21:35 Evofrce-SKB-BtT Reductase Allergy Other Verified 01/10/24 21:35 Inhibitor (Yquujtd-Oax-Mmq Reductase Inhibitor) egg AdvReac Diarrhea Verified 01/10/24 21:35 erythromycin base AdvReac Other Verified 01/10/24 21:35 etodolac AdvReac Unknown Verified 01/10/24 21:35 metformin AdvReac Diarrhea Verified 01/10/24 21:35 NSAIDS (Non-Steroidal AdvReac Other Verified 01/10/24 21:35 Anti-Inflamma Sulfa (Sulfonamide AdvReac Rash Verified 01/10/24 21:35 Antibiotics) Surgical History History of colon surgery Hx of sinus surgery Hx of tubal ligation Hx of gastric bypass History of hernia surgery History of total right knee replacement Social History household members: spouse Smoking Status: Never smoker substance use type: does not use Review of Systems (Anesthesia) ROS Narrative System reviewed and no additional complaints, except as documented.
[2024-01-11] MEDS: Lactated Ringers 1,000 ML 15 ML IV (14:15)
[2024-01-11] MEDS: Clindamycin 900 MG/50 ML BAG 75 MG IV (15:46)
--- NOTE | 2024-01-11 16:00 | RAD_ITS ---
CLINICAL HISTORY: FX Date: 01/11/2024 4:20 PM Date of : 1940 Intraoperative images assigned to this order were provided in conjunction with a surgical procedure performed in the operating room/procedural suite. Please see operative report for details. Fluoroscopic images: 35 Fluoroscopic time: NA Cumulative dose: NA, mGym2; 23.31; mGy Imaging documents gamma nail fixation of the LEFT femur. Refer to procedural note for complete description. IMPRESSIONS: 1. Fluoroscopic guidance for surgical planning and confirmation during gamma nail fixation of the LEFT femur. Electronically Signed: Joaquin Hogue MD at 19:36 EDT , RAD/Hip Min 2 Views (Portable) IMPRESSION: undefined
--- NOTE | 2024-01-11 17:43 | OP.PCM_ITS ---
Report of Operation Date of Procedure: 01/11/24 Description of Surgical Findings:: Operative Report Pre-operative Diagnosis: Left intertrochanteric Femur Fracture Post-operative Diagnosis: Left intertrochanteric Femur Fracture Procedure(s) Performed: Left femur Cephalmedullary Nailing CPT 20443 Surgeon: Dr. Wade Neely MD [employer] Instructor: None Estimated Blood Loss: 40 ml Anesthesia: General Drains: None Specimens: None Implants: Octavio Gamma3 Trochanteric Nail 180 x 11 mm short nail 125 degree angle Complications: None Condition: stable Indications: 83-year-old lady who had a ground-level fall and sustained a left intertrochanteric femur Fracture. We discussed the benefits and risks of the procedure including but not limited toinfection, bleeding, injury to nerves and vessels, limb length discrepancy, nonunion, malunion, hardware failure, randolph-implant fracture, hip and knee stiffness, persistent pain, difficulty to ambulate, DVT, pulmonary embolism, cardiopulmonary event, need for further surgeries. The patient concurred with the proposed plan, giving informed consent. Procedure Details: The patient was seen in the pre-operative preparation area. The site of surgery was verbally confirmed and marked by the surgical team. The patient was properly identified by the unique identifiers and was then at that time transported to the operative theater by [facility]. A Time Out was held and the above information confirmed. Both lower extremities were placed on the fracture table with the contralateral extremity extended down to allow C- arm to come in. Close reduction maneuver was applied and AP lateral x-rays were taken. Reduction was somewhat acceptable with slight lateral translation at the subtrochanteric level. Operative area was prepped and draped in a sterile fashion. Final timeout was performed. With the help of C-arm incision was marked. A 4 cm Incision was made proximal to the greater trochanter. An appropriate greater trochanter starting point was found using awl and guide wire under fluoroscopy. The guide wire was then advanced into the diaphyseal region of the femur. The opening reamer was then drilled into the metadiaphysis under fluoro. 180 x 11 mm short gamma nail with 125 degree angle Gamma Nail was then placed into the intramedullary canal of the femur and placement was verified with fluoroscopy and advanced to an appropriate level to allow placement of the lag screw. Guidewire was removed. We then drilled the wire for the lag screw up the neck of the femur under fluoroscopic guidance. AP and lateral x-rays showed good positioning of the wire through the neck into the head with good tip apex distance. The wire was then measured. Cannulated drill was used to drill a channel for the lag screw and a 100 mm lag screw was placed up the neck of the femur. A distal static interlocking screw 40 mm was placed with the help of the gamma nail jig. Final fluorscopic images were then taken and the placement of the intramedullary device and fracture was deemed appropriate. The wounds were irrigated copiously with Irrisept followed by saline. The deep fascia was closed with 0 vicryl suture. The deep dermal layer was closed with 2-0 vicryl suture. [place] were used to close the skin. Aquacel dressing was used, the incisions. The patient was then awaken, extubated and taken to the PACU. I was present and scrubbed for the entire procedure. Postoperative plan: Patient will be WBAT. Recommend PT/OT evaluation Pain Control F/u Outpatient in 2 weeks Surgeon: Wade Neely paving supervisor: Rhonda Hurley Admit VTE Documentation VTE Mechan Device Prophylaxis: SCD's Procedures Musculoskeletal [id number]: Other Procedure See Report
--- NOTE | 2024-01-11 17:56 | PCM.POST.ANE ---
Anesthesia: Postop Eval I Current Vital Signs Temperature: 97.2 F Pulse Rate: 82 Blood Pressure: 94/60 Respiratory Rate: 16 Pulse Ox: 96 Oxygen Delivery Method: Nasal Cannula Oxygen Flow Rate (L/min): 2 Assessment Airway patent: Yes Spontaneous unlabored respirations: Yes Mental status: Awake nausea: No Vomiting: No Anesthesia Complication: No Fluid Hydration Crystalloid volume administer (ml): 600 Total IV fluid infused: 600 Progress Note Anesthesia document: Postop Eval 1 completed: Yes
--- NOTE | 2024-01-11 17:58 | PCM.POSTANE2 ---
Anesthesia Postop Eval I Sum Postop Eval Completion status Anesthesia document: Postop Eval 1 completed: Yes Anesthesia Postop Eval I Summary Anesthesia Postop Eval I Summary: Anesthesia Postop Eval I: Assessment Summary Airway patent Yes 01/11/24 17:58 Spontaneous unlabored Yes 01/11/24 17:58 respirations Mental status Awake 01/11/24 17:58 nausea No 01/11/24 17:58 Vomiting No 01/11/24 17:58 Anesthesia Postop Eval I: Fluid Summary Crystalloid volume administer 600 01/11/24 17:58 (ml) Colloids volume administered ( ml) Blood Product volume administered (ml) Total IV fluid infused 600 01/11/24 17:58 Anesthesia Postop Eval I: Summary Notes Anesthesia Complication No 01/11/24 17:58 Anesthesia Complication Comment: Post-operative progress note Anesthesia: Postop Eval II Evaluation Mental status: Awake Pain Level: 0 nausea: No Vomiting: No Complications Anesthesia Complication: No
[2024-01-11 18:30] LABS: Bedside Glucose 231 mg/dL (74-106)
[2024-01-11] MEDS: Nitrofurantoin Macrocrystals 100 MG Capsule PO (21:09)
[2024-01-11] MEDS: MELATONIN 3 MG TABLET PO (21:09)
[2024-01-11] MEDS: Tolterodine Tartrate 2 MG CAP.SA PO (21:09)
[2024-01-11] MEDS: 0.9% Normal Saline (1000mL) 1,000 ML 75 ML IV (21:12)
[2024-01-11] MEDS: oxyCODONE 5 MG Tablet PO (21:14)
[2024-01-11] MEDS: Insulin Lispro 100 UNIT/ML INSULN.PEN SC (23:33)
[2024-01-12 02:19] VITALS: BMI 31.6
[2024-01-12 02:47] VITALS: BP 107/50; PULSE 99; RESP 16; TEMP 36.8; O2SAT 92
[2024-01-12] MEDS: oxyCODONE 5 MG Tablet PO ×2 (04:51→13:04)
[2024-01-12] MEDS: Acetaminophen 500 MG Tablet PO (04:51)
[2024-01-12 06:45] LABS: Absolute Lymphocyte Count 1.46 X10^3/uL (0.83-4.51); Absolute Neutrophil Count 8.2 X10^3/uL (2.0-7.7); Basophil# 0.08 X10^3/uL; Basophil% 0.7 % (0-1); Eosinophils% 0.9 % (0-5); Hematocrit 30.8 % (37-47); Hemoglobin 9.6 g/dL (12.0-15.0); Lymphocyte # 1.46 X10^3/ul (0.83-4.51); Lymphocyte % 12.7 % (19-41); Mean Corp Hgb Conc 31.2 g/dL (32-36); Mean Corpuscular Volume 93.1 fL (81-99); Mean Platelet Vol. 11.3 fl (6.2-12.0); Monocyte# 1.53 X10^3/uL; Monocyte% 13.3 % (0-10); NRBC Flagged by Analyzer 0 % (0-5); Neutrophil # 8.23 X10^3/uL (2.7-7.7); Neutrophil % 71.7 % (47-70); POSITIVE DIFFERENTIAL YES; Platelet Count 218 K/mm3 (150-450); RBC Distribution Width CV 14.9 % (11.6-14.6); RBC Distribution Width SD 50.5 fl (35.1-43.9); Red Blood Count 3.31 M/mm3 (4.2-5.4); White Blood Count 11.5 K/mm3 (4.4-11.0)
[2024-01-12 06:48] VITALS: BP 105/51; PULSE 97; RESP 16; TEMP 36.9; O2SAT 92
[2024-01-12 06:51] LABS: Differential Indicated SCAN CRITERIA MET
[2024-01-12] MEDS: Insulin Lispro 100 UNIT/ML INSULN.PEN SC ×2 (06:53→12:36)
[2024-01-12 07:04] LABS: Anion Gap 8 (5-15); BUN 29 mg/dL (7-18); BUN/Creat Ratio 21.3 RATIO (10-20); Chloride 106 mmol/L (98-107); Creatinine, Serum 1.36 mg/dL (0.55-1.02); EST Glomerular Filtration Rate 40 mL/min (>60); Est Glom Filt Rate - Afr Amer 48 mL/min (>60); Estimated Creatinine Clearance 36.54 ml/min; Glucose 191 mg/dL (74-106); Potassium 4.2 mmol/L (3.5-5.1); Sodium Level 136 mmol/L (136-145)
[2024-01-12 07:24] LABS: Bedside Glucose 179 mg/dL (74-106)
[2024-01-12 07:24] LABS: Bedside Glucose 174 mg/dL (74-106)
--- NOTE | 2024-01-12 08:14 | PN.HOSP_ITS ---
Reason for Visit Reason for Visit: Diagnoses Type 2 diabetes mellitus without complications (01/10/24) Obesity, unspecified (01/10/24) Displaced intertrochanteric fracture of left femur, initial encounter for closed fracture (01/10/24) Personal history of diseases of the blood and blood-forming organs and certain disorders involving the immune mechanism (01/10/24) Personal history of other endocrine, nutritional and metabolic disease (01/10/24) Personal history of pulmonary embolism (01/10/24) Personal history of other diseases of the circulatory system (01/10/24) Personal history of other specified conditions (01/10/24) Subjective Subjective Complaining of pain in left quads. Objective Data Objective Data Vital Signs: Vital Signs Temp Pulse Resp BP Pulse Ox O2 Del Method O2 Flow Rate 36.9 C 97 16 105/51 L 92 Room Air 2 01/12/24 06:48 01/12/24 06:48 01/12/24 06:48 01/12/24 06:48 01/12/24 06:48 01/12/24 06:48 01/11/24 18:53 Oxygen Flow Rate (L/min) 2 Oxygen Delivery Method Room Air Weight: 89.4 kg Body Mass Index (BMI) 31.6 Intake & Output: Intake and Output for Last 24 Hours 01/10/24 01/11/24 01/12/24 23:59 23:59 23:59 Intake Total 1050.00 / 1050.00 852.75 / 852.75 Output Total 400 / 400 175 / 175 Balance 650.00 / 650.00 677.75 / 677.75 Lab / Micro Data 01/12/24 06:18 01/12/24 06:18 Labs: Laboratory Results - last 24 hr 01/11/24 07:38: Blood Type O POSITIVE, Antibody Screen NEGATIVE 01/11/24 13:17: POC Glucose 154 H 01/11/24 18:12: POC Glucose 231 H 01/11/24 23:30: POC Glucose 179 H 01/12/24 06:18: WBC 11.5 H, RBC 3.31 L, Hgb 9.6 L, Hct 30.8 L, MCV 93.1, MCH 29.0, MCHC 31.2 L, RDW Std Deviation 50.5 H, RDW Coeff of Gail 14.9 H, Plt Count 218, MPV 11.3, Immature Gran % (Auto) 0.700, Neut % (Auto) 71.7 H, Lymph % (Auto) 12.7 L, [place] % (Auto) 13.3 H, Eos % (Auto) 0.9, Baso % (Auto) 0.7, A bsolute Neuts (auto) 8.2 H, Absolute Lymphs (auto) 1.46, Nucleated RBC % 0, Differential Comment COMMENT, Diff Path Review May foll, Sodium 136, Potassium 4.2, Chloride 106, Carbon Dioxide 22.0, Anion Gap 8, BUN 29 H, Creatinine 1.36 H , Estim Creat Clear Calc 36.54, Est GFR (MDRD) Af Amer 48 L, Est GFR (MDRD) Non- Af 40 L, BUN/Creatinine Ratio 21.3 H, Glucose 191 H, Calcium 8.0 L 01/12/24 06:52: POC Glucose 174 H Physical Exam Const alert and no apparent distress Constitutional Narrative: uncomfortable. non-toxic. HEENT head/scalp atraumatic and moist oral mucous membranes Resp normal respiratory effort, no retractions, no use of accessory muscles and clear to auscultation bilaterally Cardio regular rate, regular rhythm, S1 normal heart sound and S2 normal heart sound Extremity Extremity Narrative: no reproducible left quad tenderness. Neuro Sensorium / Orientation: awake and alert Assessment & Plan Assessment/Plan (1) Closed intertrochanteric fracture of left hip: QUALIFIERS: Encounter type: initial encounter Fracture alignment: displaced Qualified Code(s): S72.142A - Displaced intertrochanteric fracture of left femur, initial encounter for closed fracture PLAN: Plan Closed intertrochanteric left hip fracture * after mechanical fall due to weakness from UTI * Left femur cephalomedullary nailing on 01/10 * WBAT to LLE. Follow up with orthopaedics in 2 weeks. Recent diagnosis of UTI * Unfortunately we do not have culture data * She is on Macrobid which we will continue she missed her morning dose secondary to being n.p.o. but she should be able to take it this evening Chronic conditions: * DM2? Will hold her Mounjaro. SSI. * Anxiety/depression? Stable? Continue with Cymbalta * PE: apixaban VTE prophylaxis: not indicated as on apixaban Disposition: to SNF pending insurance authorization. Charges/Coding Visit Charges Inpatient E&M: 22066 Subs Hosp L2
[2024-01-12 08:17] VITALS: BP 100/52; PULSE 90; RESP 18; TEMP 36.8; O2SAT 97
[2024-01-12] MEDS: Ferrous Sulfate 325 MG Tablet PO (08:27)
[2024-01-12] MEDS: Calcium Carbonate 500 MG Tablet PO (08:27)
[2024-01-12] MEDS: Loratadine 10 MG Tablet PO (08:27)
[2024-01-12] MEDS: Ascorbic Acid 500 MG Tablet PO (08:27)
[2024-01-12] MEDS: Nitrofurantoin Macrocrystals 100 MG Capsule PO (08:28)
[2024-01-12] MEDS: APIXABAN 5 MG TABLET PO (08:28)
[2024-01-12] MEDS: Fluconazole 100 MG Tablet 200 MG PO (08:28)
[2024-01-12] MEDS: Cholecalciferol (VIT D3) 25 MCG TABLET (1,000 UNITS) 50 MCG PO (08:28)
[2024-01-12] MEDS: DULoxetine Hcl 20 MG Capsule 40 MG PO (08:28)
[2024-01-12] MEDS: 0.9% Normal Saline (1000mL) 1,000 ML 75 ML IV (08:33)
[2024-01-12 09:04] VITALS: O2SAT 97
[2024-01-12 10:00] VITALS: O2SAT 97
--- NOTE | 2024-01-12 11:19 | CASEMGMT ---
Addendum entered by Maryana Holman 01/12/24 11:56: IRU declined referral. TCU is running meds in consideration of acceptance. MOY Logan Original Note: Social Work- SW met with pt to discuss preferences at d/c. Pt declines a SNF list at this time, stating that she wants IRU or TCU. SW completed referrals. MOY Logan
--- NOTE | 2024-01-12 12:49 | PN.ORTHO_ITS ---
Subjective Subjective Postop day 1 status post left hip gamma nailing. Struggling with pain control. Mentions of mid thigh and groin pain. Had difficulty standing and putting weight on the leg today. Objective Data Objective Data Vital Signs: Vital Signs Temp Pulse Resp BP Pulse Ox O2 Del Method O2 Flow Rate 98.2 F 90 18 100/52 L 97 Nasal Cannula 2 01/12/24 08:17 01/12/24 08:17 01/12/24 08:17 01/12/24 08:17 01/12/24 10:00 01/12/24 10:00 01/12/24 10:00 Oxygen Flow Rate (L/min) 2 Oxygen Delivery Method Nasal Cannula Weight: 197 lb 1.492 oz Body Mass Index (BMI) 31.6 Intake & Output: Intake and Output for Last 24 Hours 01/10/24 01/11/24 01/12/24 23:59 23:59 23:59 Intake Total 1050.00 / 1050.00 1704.00 / 1704.00 Output Total 400 / 400 175 / 175 Balance 650.00 / 650.00 1529.00 / 1529.00 Lab / Micro Data 01/12/24 06:18 01/12/24 06:18 Labs: Laboratory Results - last 24 hr 01/11/24 13:17: POC Glucose 154 H 01/11/24 18:12: POC Glucose 231 H 01/11/24 23:30: POC Glucose 179 H 01/12/24 06:18: WBC 11.5 H, RBC 3.31 L, Hgb 9.6 L, Hct 30.8 L, MCV 93.1, MCH 29.0, MCHC 31.2 L, RDW Std Deviation 50.5 H, RDW Coeff of Gail 14.9 H, Plt Count 218, MPV 11.3, Immature Gran % (Auto) 0.700, Neut % (Auto) 71.7 H, Lymph % (Auto) 12.7 L, [place] % (Auto) 13.3 H, Eos % (Auto) 0.9, Baso % (Auto) 0.7, A bsolute Neuts (auto) 8.2 H, Absolute Lymphs (auto) 1.46, Nucleated RBC % 0, Differential Comment COMMENT, Diff Path Review September, Sodium 136, Potassium 4.2, Chloride 106, Carbon Dioxide 22.0, Anion Gap 8, BUN 29 H, Creatinine 1.36 H , Estim Creat Clear Calc 36.54, Est GFR (MDRD) Af Amer 48 L, Est GFR (MDRD) Non- Af 40 L, BUN/Creatinine Ratio 21.3 H, Glucose 191 H, Calcium 8.0 L 01/12/24 06:52: POC Glucose 174 H Physical Exam Narrative Dressing?CDI. Distal neurovascular exam is intact. Assessment & Plan Assessment/Plan (1) Closed intertrochanteric fracture of left hip: QUALIFIERS: Encounter type: initial encounter Fracture alignment: displaced Qualified Code(s): S72.142A - Displaced intertrochanteric fracture of left femur, initial encounter for closed fracture PLAN: Plan Postop day 1 status post left hip gamma nailing. Explained the patient the need for mobility and ambulation as tolerated to reduce recumbency complications. Recommended and taught in bed exercises for knee flexion extension. Patient was able to do these in bed. Continue PT OT as tolerated. Weightbearing as tolerated. Discharge likely to rehab when medically appropriate. Restart Eliquis for DVT prophylaxis. Follow-up in clinic in 2 weeks for x-rays and staple removal.
--- NOTE | 2024-01-12 13:21 | CASEMGMT ---
Addendum entered by Maryana Holman 01/12/24 14:45: TCU has precert. Physician advised. Pt advised. SW called [facility], who reports that pt has 2 doses of mounjaro. Mazin reports a local [place] truck driver can drop it off. TCU and pt advised. Pt will d/c today per physician. MOY Logan Original Note: Social Work- SW received acceptance to [facility]. Pt will need to supply mounjaro. Pt gave SW permission to call [facility], and also requested that SW call dtr, Sara. SW called Mazin who states that pt just had her mounjaro, but he is unable to give a date d/t not being at his desk. Mazin reports that he believes that pt has more doses at the facility, but will check when he is able and report to SW. Mazin reports that he could have a local [place] truck driver drop off medications if she has some available. SVITLANA spoke with dtr Sara, who states that she liked to be apprised of mother's care d/t what she feels is very early dementia. [place] that [place]; [place] the day before pt fell. Sara reports that she is unable to return to [place] at this time and wishes to have frequent communication with caregivers. Sara is agreeable to d/c plans and was given the name of SVITLANA at [facility]. TCU/Dacia advised of conversation with Mazin at [facility]. Physician collaboration on d/c readiness. Precert started. Plan: TCU; pending precert MOY Logan
[2024-01-12 13:23] LABS: Bedside Glucose 204 mg/dL (74-106)
[2024-01-12 14:24] VITALS: BP 131/61; PULSE 95; RESP 18; TEMP 36.6; O2SAT 97
--- NOTE | 2024-01-12 14:43 | TREXTCAR_ITS ---
Diet Diet Order/Speech Therapy: 01/12/24 08:19 Diet: Consistent Carb - Calorie Controlled How many daily calories?: 1999 calorie Routine Orders/Code Status Code Status: DNRCC-A (no intubation) Wound(s) LEFT HIP: Wound Type: Surgical Incision Therapies Weight Bearing: Weight bearing as tolerated Extremity Affected:: Left Lower Physical Therapy: Eval and Treat Occupational Therapy: Eval and Treat Problem/Diagnosis (1) Closed intertrochanteric fracture of left hip: Status: Acute Code(s): S72.142A - Displaced intertrochanteric fracture of left femur, initial encounter for closed fracture Plan Closed intertrochanteric left hip fracture * after mechanical fall due to weakness from UTI * Left femur cephalomedullary nailing on 01/10 * WBAT to LLE. Follow up with orthopaedics in 2 weeks. Recent diagnosis of UTI * Unfortunately we do not have culture data * She is on Macrobid which we will continue she missed her morning dose secondary to being n.p.o. but she should be able to take it this evening Chronic conditions: * DM2? Will hold her Mounjaro. SSI. * Anxiety/depression? Stable? Continue with Cymbalta * PE: apixaban VTE prophylaxis: not indicated as on apixaban Disposition: to SNF pending insurance authorization. Allergies/Procedures Done in Hospital Allergies adhesive Allergy (Verified 01/10/24 21:35) Rash aspirin (ASA) Allergy (Verified 01/10/24 21:35) Anaphylaxis atorvastatin (From Lipitor) Allergy (Verified 01/10/24 21:35) Unknown Dressing: Non-Medicated Allergy (Verified 01/10/24 21:35) Rash duoderm exenatide (From Byetta) Allergy (Verified 01/10/24 21:35) Unknown ezetimibe (From Zetia) Allergy (Verified 01/10/24 21:35) Rash irbesartan (From Avapro) Allergy (Verified 01/10/24 21:35) Swelling niacin Allergy (Verified 01/10/24 21:35) Unknown Penicillins Allergy (Verified 01/10/24 21:35) Rash pravastatin Allergy (Verified 01/10/24 21:35) Rash rosuvastatin (From Crestor) Allergy (Verified 01/10/24 21:35) Unknown simvastatin (From Zocor) Allergy (Verified 01/10/24 21:35) Rash Lhrbuey-FNR-VoL Reductase Inhibitor (Vuhegwq-Irc-Xth Reductase Inhibitor) Allergy (Verified 01/10/24 21:35) Other erythromycin base Adverse Reaction (Verified 01/10/24 21:35) Other etodolac Adverse Reaction (Verified 01/10/24 21:35) Unknown metformin Adverse Reaction (Verified 01/10/24 21:35) Diarrhea NSAIDS (Non-Steroidal Anti-Inflamma Adverse Reaction (Verified 01/10/24 21:35) Other Sulfa (Sulfonamide Antibiotics) Adverse Reaction (Verified 01/10/24 21:35) Rash Type of Care/Length of Stay Estimated LOS: Convalescent Care Less Than 30 days Type of Care Needed: Skilled Rehab Potential: Fair Prognosis: Good Additional Orders/Day of Discharge Day of Discharge: 01/12/24 Discharge Plan Admission Admit Date/Time: 01/10/24 23:30 Primary Reason for Your Visit: left hip fracture. Attending Provider: Kerwin Ibanez Primary Care Provider: Aria Helms Consulting Providers: Wade Neely; Curtis Veronica; Arron Cervantes Discharge Orders/Prescriptions Prescriptions: New acetaminophen 500 mg Tablet 500 mg PO Q6 PRN (Reason: Pain 1-5/10 Or Fever) Qty: 0 0RF insulin lispro [Humalog KwikPen Insulin] 100 unit/mL Insulin Pen See Protocol subcut ACHS Qty: 0 0RF Protocol: 1. Sliding Scale Insulin Low Dosing Condition: 150-224 mg/dl = 1 unit Condition: 225-299 mg/dl = 2 units Condition: 300-374 mg/dl = 3 units Condition: 375-449 mg/dl = 4 units Condition: Greater than 449 call physician Protocol Text: Suggested for: - Patients on Total Daily Insulin Dose of 15-27 units - Thin, elderly, renal patients LOW DOSING ALGORITHM oxycodone 5 mg Tablet 5 mg PO Q4H PRN PRN (Reason: Pain Score 4-10) 3 Days Qty: 12 0RF Continued calcitriol 0.5 MCG capsule 0.5 mcg PO DAILY Patient Comments: oxybutynin chloride 10 MG tablet extended release 24hr 10 mg PO QHS calcium carbonate-vitamin D3 1 EACH tablet 2 tab PO DAILY ascorbic acid (vitamin C) 500 MG tablet 500 mg PO DAILY cyanocobalamin (vitamin B-12) 1,000 MCG/ML solution 1,000 mcg IM Q30D multivitamin with minerals 1 EACH tablet 1 ea PO DAILY biotin 2,500 MCG capsule 2,500 mcg PO DAILY apixaban 5 MG tablet 5 mg PO BID Qty: 74 0RF Rx Instructions: 10 mg twice a day for the first week. Then 5 mg twice a day. loratadine [Claritin] 10 mg tablet 10 mg PO DAILY duloxetine [Cymbalta] 20 mg capsule,delayed release(DR/EC) 40 mg PO DAILY fluconazole [Diflucan] 200 mg tablet 200 mg PO MOWEFR ferrous sulfate [Iron (ferrous sulfate)] 325 mg (65 mg iron) tablet 325 mg PO DAILY melatonin 3 mg capsule 3 mg PO QHS Mounjaro 5 mg/0.5 mL pen injector 5 mg subcut QWEEK cholecalciferol (vitamin D3) 50 mcg (2,000 unit) capsule 100 mcg PO DAILY nitrofurantoin monohyd/m-cryst 100 mg capsule 1 cap PO BID Discontinued acetaminophen 500 MG tablet 500 mg PO QHS Referrals / Follow Up: Wade Neely MD [Med Staff - Active Staff] - Within 2 Weeks Aria Helms MD [Primary Care Provider] - Within 2 Weeks Disposition Disposition (needs filled in before D/C Order can be placed): Snf Facility (1) Closed intertrochanteric fracture of left hip Qualifiers: Encounter type: initial encounter Fracture alignment: displaced Qualified Code(s): S72.142A - Displaced intertrochanteric fracture of left femur, initial encounter for closed fracture
--- NOTE | 2024-01-12 14:49 | DS.PCM_ITS ---
Providers Date of Admission: 01/10/24 Primary Care Physician: Dr. Aria Helms MD Consultations 01/11/24 00:33 Consult: Orthopedics Routine Consulting Provider: Wade Neely Reason for Consult: Closed intertrochanteric Left hip fracture after fall. EMERGENT Consult: No MD Notified: Yes Date Notified: 01/10/24 Time Notified: 23:33 Method of Notification: per ED doc Reason For Visit: CLOSED INTERTROCHANTERIC LEFT HIP FRACTURE AFTER Diagnosis Discharge Diagnosis (1) Closed intertrochanteric fracture of left hip: Status: Acute Code(s): S72.142A - Displaced intertrochanteric fracture of left femur, initial encounter for closed fracture Qualifiers: Encounter type: initial encounter Fracture alignment: displaced Q ualified Code(s): S72.142A - Displaced intertrochanteric fracture of left femur, initial encounter for closed fracture Plan Closed intertrochanteric left hip fracture * after mechanical fall due to weakness from UTI * Left femur cephalomedullary nailing on 01/10 * WBAT to LLE. Follow up with orthopaedics in 2 weeks. Recent diagnosis of UTI * Unfortunately we do not have culture data * She is on Macrobid which we will continue she missed her morning dose secondary to being n.p.o. but she should be able to take it this evening Chronic conditions: * DM2? Will hold her Mounjaro. SSI. * Anxiety/depression? Stable? Continue with Cymbalta * PE: apixaban VTE prophylaxis: not indicated as on apixaban Disposition: to SNF pending insurance authorization. Medications at Discharge Home Medications calcitriol 0.5 mcg capsule 0.5 mcg PO DAILY 03/04/15 ascorbic acid (vitamin C) 500 mg tablet 500 mg PO DAILY 03/31/19 biotin 2,500 mcg capsule 2,500 mcg PO DAILY 03/31/19 calcium carbonate 600 mg-vitamin D3 5 mcg (200 unit) tablet 2 tab PO DAILY 03/31/19 cyanocobalamin (vitamin B-12) 1,000 mcg/mL injection solution 1,000 mcg IM Q30D 03/31/19 multivitamin with minerals 1 ea PO DAILY 03/31/19 oxybutynin chloride 10 mg tablet,extended release 24 hr 10 mg PO QHS overactive bladder 03/31/19 apixaban 5 mg tablet 5 mg PO BID #74 tabs 08/27/20 cholecalciferol (vitamin D3) 50 mcg (2,000 unit) capsule 100 mcg PO DAILY 01/10/24 duloxetine 20 mg capsule,delayed release (Cymbalta) 40 mg PO DAILY 01/10/24 ferrous sulfate 325 mg (65 mg iron) tablet (Iron (ferrous sulfate)) 325 mg PO DAILY 01/10/24 fluconazole 200 mg tablet (Diflucan) 200 mg PO MOWEFR 01/10/24 loratadine 10 mg tablet (Claritin) 10 mg PO DAILY 01/10/24 melatonin 3 mg capsule 3 mg PO QHS 01/10/24 nitrofurantoin monohydrate/macrocrystals 100 mg capsule 1 cap PO BID 01/10/24 tirzepatide 5 mg/0.5 mL subcutaneous pen injector (Mounjaro) 5 mg subcut QWEEK 01/10/24 acetaminophen 500 mg tablet 500 mg PO Q6 PRN Pain 1-5/10 Or Fever #0 tabs 01/12/24 insulin lispro 100 unit/mL subcutaneous pen (Humalog KwikPen (U-100) Insulin) See Protocol subcut ACHS #0 mL 01/12/24 oxycodone 5 mg tablet 5 mg PO Q4H PRN PRN Pain Score 4-10 3 days #12 tabs 01/12/24 Hospital Course Operations - (Left femur Cephalmedullary Nailing) Procedures None Summary of Care Provided Minutes Spent on Discharge: 32 Weight / BMI Weight Weight: 89.4 kg Body Mass Index (BMI) 31.6 ABG / Lab / Microbiology Data 01/12/24 06:18 01/12/24 06:18 Laboratory: Laboratory Results - last 24 hr 01/11/24 18:12: POC Glucose 231 H 01/11/24 23:30: POC Glucose 179 H 01/12/24 06:18: WBC 11.5 H, RBC 3.31 L, Hgb 9.6 L, Hct 30.8 L, MCV 93.1, MCH 29.0, MCHC 31.2 L, RDW Std Deviation 50.5 H, RDW Coeff of Gail 14.9 H, Plt Count 218, MPV 11.3, Immature Gran % (Auto) 0.700, Neut % (Auto) 71.7 H, Lymph % (Auto) 12.7 L, [place] % (Auto) 13.3 H, Eos % (Auto) 0.9, Baso % (Auto) 0.7, A bsolute Neuts (auto) 8.2 H, Absolute Lymphs (auto) 1.46, Nucleated RBC % 0, Differential Comment COMMENT, Diff Path Review May foll, Sodium 136, Potassium 4.2, Chloride 106, Carbon Dioxide 22.0, Anion Gap 8, BUN 29 H, Creatinine 1.36 H , Estim Creat Clear Calc 36.54, Est GFR (MDRD) Af Amer 48 L, Est GFR (MDRD) Non- Af 40 L, BUN/Creatinine Ratio 21.3 H, Glucose 191 H, Calcium 8.0 L 01/12/24 06:52: POC Glucose 174 H 01/12/24 12:34: POC Glucose 204 H D/C Instructions Discharge Diet: 2000 Calorie Control Diet Meaningful Use Info Meaningful Use Meaningful Use Diagnoses (Choose all that apply): None applicable Ischemic Stroke Statin Dosing Therapy Reference: STATIN DOSE THERAPY REFERENCE: * Patients > 75 years receive moderate or high dose statin therapy. * Patients 75 years or YOUNGER should receive HIGH intensity statin dose unless contraindicated. You will be required to document reason for non-treatment if statin daily dose does not meet guidelines. HIGH DOSE STATIN THERAPY DAILY Atorvastatin > than or = to 40 mg Rosuvastatin > than or = to 20 mg Amlodipine + Atorvastatin > than or = to 2.5/40 mg Ezetimibe + Simvastatin 10/80 mg Simvastatin 80mg Discharge Plan Admission Admit Date/Time: 01/10/24 23:30 Primary Reason for Your Visit: left hip fracture. Attending Provider: Kerwin Ibanez Primary Care Provider: Aria Helms Consulting Providers: Wade Neely; Curtis Veronica; Arron Cervantes Discharge Orders/Prescriptions Prescriptions: New acetaminophen 500 mg Tablet 500 mg PO Q6 PRN (Reason: Pain 1-5/10 Or Fever) Qty: 0 0RF insulin lispro [Humalog KwikPen Insulin] 100 unit/mL Insulin Pen See Protocol subcut ACHS Qty: 0 0RF Protocol: 1. Sliding Scale Insulin Low Dosing Condition: 150-224 mg/dl = 1 unit Condition: 225-299 mg/dl = 2 units Condition: 300-374 mg/dl = 3 units Condition: 375-449 mg/dl = 4 units Condition: Greater than 449 call physician Protocol Text: Suggested for: - Patients on Total Daily Insulin Dose of 15-27 units - Thin, elderly, renal patients LOW DOSING ALGORITHM oxycodone 5 mg Tablet 5 mg PO Q4H PRN PRN (Reason: Pain Score 4-10) 3 Days Qty: 12 0RF Continued calcitriol 0.5 MCG capsule 0.5 mcg PO DAILY Patient Comments: oxybutynin chloride 10 MG tablet extended release 24hr 10 mg PO QHS calcium carbonate-vitamin D3 1 EACH tablet 2 tab PO DAILY ascorbic acid (vitamin C) 500 MG tablet 500 mg PO DAILY cyanocobalamin (vitamin B-12) 1,000 MCG/ML solution 1,000 mcg IM Q30D multivitamin with minerals 1 EACH tablet 1 ea PO DAILY biotin 2,500 MCG capsule 2,500 mcg PO DAILY apixaban 5 MG tablet 5 mg PO BID Qty: 74 0RF Rx Instructions: 10 mg twice a day for the first week. Then 5 mg twice a day. loratadine [Claritin] 10 mg tablet 10 mg PO DAILY duloxetine [Cymbalta] 20 mg capsule,delayed release(DR/EC) 40 mg PO DAILY fluconazole [Diflucan] 200 mg tablet 200 mg PO MOWEFR ferrous sulfate [Iron (ferrous sulfate)] 325 mg (65 mg iron) tablet 325 mg PO DAILY melatonin 3 mg capsule 3 mg PO QHS Mounjaro 5 mg/0.5 mL pen injector 5 mg subcut QWEEK cholecalciferol (vitamin D3) 50 mcg (2,000 unit) capsule 100 mcg PO DAILY nitrofurantoin monohyd/m-cryst 100 mg capsule 1 cap PO BID Discontinued acetaminophen 500 MG tablet 500 mg PO QHS Referrals / Follow Up: Wade Neely MD [Med Staff - Active Staff] - Within 2 Weeks Aria Helms MD [Primary Care Provider] - Within 2 Weeks Disposition Disposition (needs filled in before D/C Order can be placed): Long-Term Facility Charges/Coding Visit Charges Inpatient E&M: 29832 Disch Hosp >30min
[2024-01-13 08:49] LABS: Pathologist Review Reviewed
== END 2024-01-12 15:44 | disposition skilled nursing facility (03) | DRG 482 ==
LOC: ED 23:38 → MS3 01-11 00:11
PROVIDERS: Anesthesiology; Family Medicine; Orthopaedic Surgery Orthopaedic Surgery of the Spine; Admitting Provider Internal Medicine; Emergency Provider Emergency Medicine; PCP Internal Medicine
PROC: 0QS736Z Reposition Left Upper Femur with Intramedullary Internal Fixation Device, Percutaneous Approach (ICD-10-PCS; CPT 27245; principal; 2024-01-11 13:55)
DX: S72.142A Displaced intertrochanteric fracture of left femur, initial encounter for closed fracture (principal); Z68.32 Body mass index [BMI] 32.0-32.9, adult; E11.9 Type 2 diabetes mellitus without complications; I10 Essential (primary) hypertension; F32.A Depression, unspecified; E78.00 Pure hypercholesterolemia, unspecified; W18.30XA Fall on same level, unspecified, initial encounter; F41.9 Anxiety disorder, unspecified; E66.9 Obesity, unspecified; R35.0 Frequency of micturition; Z79.01 Long term (current) use of anticoagulants; Z79.84 Long term (current) use of oral hypoglycemic drugs; Z79.85 Long-term (current) use of injectable non-insulin antidiabetic drugs; Z86.711 Personal history of pulmonary embolism; Z98.84 Bariatric surgery status; Z96.651 Presence of right artificial knee joint
CPT/HCPCS: 36415; 51702; 71045; 73502; 76000; 80048; 80053; 82962; 83036; 83735; 84100; 84443; 85025; 85610; 85730; 86850; 86900; 86901; 93005; 94668; 97163; 97167; 99285; C1713; C1776; A4216; J2405

== ENCOUNTER 2024-01-12 15:56 | Inpatient (IN) | payer MEDICARE, SELFPAY ==
[2024-01-12 16:50] VITALS: BP 130/49; PULSE 95; RESP 16; TEMP 36.8; O2SAT 90; BMI 31.8; BMI 31.9
[2024-01-12 17:00] VITALS: RESP 16; O2SAT 90
[2024-01-12] MEDS: Acetaminophen 500 MG Tablet PO (18:03)
[2024-01-12] MEDS: oxyCODONE 5 MG Tablet PO (18:04)
[2024-01-12] MEDS: DiphenhydrAMINE 25 MG Capsule PO (18:24)
[2024-01-12] MEDS: Tolterodine Tartrate 2 MG CAP.SA PO (20:14)
[2024-01-12] MEDS: Nitrofurantoin Macrocrystals 100 MG Capsule PO (20:15)
[2024-01-12] MEDS: MELATONIN 3 MG TABLET PO (20:15)
[2024-01-12] MEDS: Senna/Docusate Sodium 1 Tablet 2 TABLET PO (20:15)
[2024-01-12] MEDS: APIXABAN 5 MG TABLET 10 MG PO (20:15)
[2024-01-12] MEDS: 0.9% Saline Lock 10 ML Syringe IV (20:20)
--- NOTE | 2024-01-12 21:33 | HP.PCM_ITS ---
HPI - General General Date of Admission: 01/12/24 Date of Service: 01/12/24 Chief Complaint: Here for rehabilitation. HPI Narrative 01/10/2024 MARIELA DOLL, is a 83 Female who presents to [facility] ED with fall. Left hip pain after fall, lost balance, and fell. Landed on left side, unable to walk after fall. On treatment for UTI, has urinary frequency. No head injury, No LOC. Morphine, Zofran given. X-ray showed left hip fracture. 01/10/2024 Admit to [facility]. Pain control, consult Dr. Neely for left hip fracture. Hydralazine iv prn elevated blood pressure. 01/11/2024 Doing well. Continue Macrobid for UTI, no culture data available. 01/11/2024 Dr. Neely performed left femur cephalomedullary nailing. 01/12/2024 Left quad pain. WBAT LLE. 01/12/2024 Admit to TCU with debility, here for rehabilitation, strengthening, prior to discharge home with . has Parkinson Disease. [facility] Medical History (Updated 01/12/24 @ 21:[address] Allan Rodriguez MD) Back fracture Diabetes HTN (hypertension) Pulmonary emboli Home Medications ?Medication ?Instructions ?Recorded ?Last Taken ?Type calcitriol 0.5 mcg capsule 0.5 mcg PO DAILY Supplement 03/04/15 Unknown History ascorbic acid (vitamin C) 500 mg 500 mg PO DAILY Supplement 03/31/19 Unknown History tablet biotin 2,500 mcg capsule 2,500 mcg PO DAILY Supplement 03/31/19 Unknown History calcium carbonate 600 mg-vitamin 2 tab PO DAILY Supplement 03/31/19 Unknown History D3 5 mcg (200 unit) tablet cyanocobalamin (vitamin B-12) 1,000 mcg IM Q30D Supplement 03/31/19 Unknown History 1,000 mcg/mL injection solution multivitamin with minerals 1 ea PO DAILY Supplement 03/31/19 Unknown History oxybutynin chloride 10 mg 10 mg PO QHS overactive bladder 03/31/19 Unknown History tablet,extended release 24 hr apixaban 5 mg tablet 5 mg PO BID Anticoagulant #74 tabs 08/27/20 Unknown Rx cholecalciferol (vitamin D3) 50 100 mcg PO DAILY Supplement 01/10/24 Unknown History mcg (2,000 unit) capsule duloxetine 20 mg capsule,delayed 40 mg PO DAILY Depression 01/10/24 Unknown History release (Cymbalta) ferrous sulfate 325 mg (65 mg 325 mg PO DAILY Supplement 01/10/24 Unknown History iron) tablet (Iron (ferrous sulfate)) fluconazole 200 mg tablet 200 mg PO MOWEFR Antifungal 01/10/24 Unknown History (Diflucan) loratadine 10 mg tablet (Claritin) 10 mg PO DAILY Allergies 01/10/24 Unknown History melatonin 3 mg capsule 3 mg PO QHS Sleep 01/10/24 Unknown History nitrofurantoin 1 cap PO BID Infection 01/10/24 Unknown History monohydrate/macrocrystals 100 mg capsule tirzepatide 5 mg/0.5 mL 5 mg subcut QWEEK Diabetes 01/10/24 01/08/24 History subcutaneous pen injector (Mounjaro) acetaminophen 500 mg tablet 500 mg PO Q6 PRN Pain 1-10/07 Or 01/12/24 01/12/24 04:50 Rx Fever #0 tabs insulin lispro 100 unit/mL See Protocol subcut ACHS Diabetes 01/12/24 Unknown Rx subcutaneous pen (Humalog KwikPen #0 mL (U-100) Insulin) oxycodone 5 mg tablet 5 mg PO Q4H PRN PRN Pain Score 01/12/24 Unknown Rx 4-10 3 days #12 tabs Allergy/AdvReac Type Severity Reaction Status Date / Time adhesive Allergy Rash Verified 01/10/24 21:35 aspirin (ASA) Allergy Anaphylaxis Verified 01/10/24 21:35 atorvastatin (From Lipitor) Allergy Unknown Verified 01/10/24 21:35 Dressing: Non-Medicated Allergy Rash Verified 01/10/24 21:35 exenatide (From Byetta) Allergy Unknown Verified 01/10/24 21:35 ezetimibe (From Zetia) Allergy Rash Verified 01/10/24 21:35 irbesartan (From Avapro) Allergy Swelling Verified 01/10/24 21:35 niacin Allergy Unknown Verified 01/10/24 21:35 Penicillins Allergy Rash Verified 01/10/24 21:35 pravastatin Allergy Rash Verified 01/10/24 21:35 rosuvastatin (From Crestor) Allergy Unknown Verified 01/10/24 21:35 simvastatin (From Zocor) Allergy Rash Verified 01/10/24 21:35 Pmwgtfx-HAG-PxS Reductase Allergy Other Verified 01/10/24 21:35 Inhibitor (Xsiprtx-Que-Efi Reductase Inhibitor) erythromycin base AdvReac Other Verified 01/10/24 21:35 etodolac AdvReac Unknown Verified 01/10/24 21:35 metformin AdvReac Diarrhea Verified 01/10/24 21:35 NSAIDS (Non-Steroidal AdvReac Other Verified 01/10/24 21:35 Anti-Inflamma Sulfa (Sulfonamide AdvReac Rash Verified 01/10/24 21:35 Antibiotics) Surgical History History of colon surgery Hx of sinus surgery Hx of tubal ligation Hx of gastric bypass History of hernia surgery History of total right knee replacement Social History (Updated 01/12/24 @ 21:[address] Allan Rodriguez MD) household members: spouse Smoking Status: Never smoker alcohol intake: never substance use type: does not use ROS Constitutional Constitutional: Denies chills, fever(s) or weight gain ENT HEENT: Denies headache(s), nasal congestion or nasal discharge Cardiovascular Cardiovascular: Denies chest pain or palpitations Respiratory/Chest Respiratory/Chest: Denies cough, excessive phlegm production or shortness of breath with exertion Gastrointestinal Gastrointestinal: Denies abdominal pain, nausea or vomiting Genitourinary Genitourinary: Denies dysuria Musculoskeletal Musculoskeletal: Denies joint pain or joint swelling Integumentary Integumentary: Denies rash or wounds Neurologic Neurologic: Denies focal weakness, numbness or tingling Psychiatric Psychiatric: Denies anxiety, auditory hallucinations, depression, homicidal ideation or suicidal ideation Vital Signs Vital Signs Vital Signs: 01/12/24 16:50 01/12/24 17:00 Temperature 98.3 F Temperature Source Oral Pulse Rate 95 Pulse Rhythm Regular Pulse Strength Normal (2+) Respiratory Rate 16 16 Respiratory Effort Normal Non-Labored Respiratory Depth Normal Respiratory Pattern Normal Blood Pressure 130/49 H Blood Pressure Mean 76 Blood Pressure Source Monitor Blood Pressure Position Semi-Fowlers Blood Pressure Location Right Arm Pulse Ox 90 90 Oxygen Delivery Method Room Air Room Air Weight Weight: 89.857 kg Body Mass Index (BMI) 31.8 Physical Exam Const alert General Appearance: cooperative HEENT normocephalic Eyes PERRL and EOMs intact bilaterally Neck supple, no JVD and no carotid bruits Resp normal respiratory effort, normal air movement and clear to auscultation bilaterally Cardio regular rate and regular rhythm GI normal to inspection, nondistended, normoactive bowel sounds, non-tender and non-distended Extremity normal capillary refill General Extremity: Negative for edema Skin no rashes or lesions noted General Skin Exam: no breakdown Psych affect normal Appearance: appropriate Assessment & Plan Assessment/Plan (1) Debility: (2) Closed left hip fracture: (3) Urinary tract infection: (4) Diabetes: (5) Essential (primary) hypertension: (6) Pulmonary emboli: (7) Hyperparathyroidism: (8) Overactive bladder: (9) Depression: (10) Iron deficiency anemia: (11) Allergic rhinitis: (12) Yeast vaginitis: PLAN: Plan 83 year old female with below past medical history hospitalized for left hip fracture, underwent left femur cephalomedullary nail 01/11/[address] Neely, admitted to TCU with debility, here for rehabilitation, strengthening, prior to discharge home with . * Debility - PT/OT. * Pain - Tylenol 1000mg q8, Oxycodone 5mg q4. * Bowel - senna/colace 2 tablets bid, Magnesium citrate 300ml po daily prn * Adult immunization - Administer pneumonia vaccine, covid vaccine, flu vaccine as appropriate. * DVT prophylaxis - on Eliquis. * Pulmonary embolism - Eliquis 10mg bid thru 01/18/2024, then 5mg bid. * Vitamin C deficiency - Vitamin C 500mg daily. * Hyperparathyroidism - Calcitriol 0.5mcg daily. * Calcium deficiency - Calcium D 2 tablets daily. * Vitamin D deficiency - D3 100mcg daily. * Vitamin B12 deficiency - B12 1000mg im q30 days. * Pruritus - Benadryl 25mg q6 prn, per patient request, [employer] drug. * Depression - Duloxetine 40mg daily, stable chronic technician terminal and repeater use, GDR not recommended. * Iron deficiency anemia - Ferrous sulfate 325mg daily. * Yeast vaginitis - Fluconazole 200mg mwf. * Allergic rhinitis - Loratadine 10mg daily. * Insomnia - Melatonin 3mg qhs. * Nutrition - MVI 1 tablet daily. * UTI - Macrobid 100mg bid 7 days. * Diabetes Mellitus II - Mounjaro 5mcg sc qweek. * Overactive bladder - Tolterodine 2mg qhs.
--- NOTE | 2024-01-12 22:05 | NURSING ---
Patient c/o 10/10 pain to Left hip due to recent fracture. PRN oxy and tylenol are minimally effective. Consulted Dr. Rodriguez via telephone, N.O. for x1 dose morphine 10mg SL and increase PRN oxycodone to 10mg Q4H PO.
[2024-01-12] MEDS: Acetaminophen 500 MG Tablet 1000 MG PO (22:48)
[2024-01-12] MEDS: MorphINE SOLN 10 MG/0.5 ML PO.SYRINGE SL (22:48)
[2024-01-13 05:38] LABS: Absolute Lymphocyte Count 1.05 X10^3/uL (0.83-4.51); Absolute Neutrophil Count 6.4 X10^3/uL (2.0-7.7); Basophil# 0.06 X10^3/uL; Basophil% 0.7 % (0-1); Eosinophil# 0.29 X10^3/uL; Eosinophils% 3.2 % (0-5); Hematocrit 27.6 % (37-47); Hemoglobin 8.7 g/dL (12.0-15.0); Lymphocyte # 1.05 X10^3/ul (0.83-4.51); Lymphocyte % 11.6 % (19-41); Mean Corp Hgb Conc 31.5 g/dL (32-36); Mean Corpuscular Hgb 29.8 pg (27.0-32.0); Mean Corpuscular Volume 94.5 fL (81-99); Mean Platelet Vol. 10.5 fl (6.2-12.0); Monocyte# 1.18 X10^3/uL; NRBC Flagged by Analyzer 0 % (0-5); Neutrophil # 6.43 X10^3/uL (2.7-7.7); Neutrophil % 70.7 % (47-70); Platelet Count 217 K/mm3 (150-450); RBC Distribution Width CV 14.6 % (11.6-14.6); RBC Distribution Width SD 50.4 fl (35.1-43.9); Red Blood Count 2.92 M/mm3 (4.2-5.4); White Blood Count 9.1 K/mm3 (4.4-11.0)
[2024-01-13] MEDS: Acetaminophen 500 MG Tablet 1000 MG PO ×3 (05:55→21:50)
[2024-01-13] MEDS: oxyCODONE 5 MG Tablet 10 MG PO ×3 (05:56→14:32)
[2024-01-13 06:15] LABS: Anion Gap 5 (5-15); BUN 26 mg/dL (7-18); BUN/Creat Ratio 30.9 RATIO (10-20); Calcium,Total 8.5 mg/dL (8.5-10.1); Chloride 105 mmol/L (98-107); Creatinine, Serum 0.84 mg/dL (0.55-1.02); EST Glomerular Filtration Rate 69 mL/min (>60); Est Glom Filt Rate - Afr Amer 83 mL/min (>60); Estimated Creatinine Clearance 59.31 ml/min; Glucose 177 mg/dL (74-106); Potassium 4.2 mmol/L (3.5-5.1); Sodium Level 136 mmol/L (136-145)
[2024-01-13 06:20] LABS: Bedside Glucose 153 mg/dL (74-106)
[2024-01-13] MEDS: DiphenhydrAMINE 25 MG Capsule PO (08:48)
[2024-01-13] MEDS: DULoxetine Hcl 20 MG Capsule 40 MG PO (08:49)
[2024-01-13] MEDS: Calcitriol 0.25 MCG Capsule 0.5 MCG PO (08:49)
[2024-01-13] MEDS: Loratadine 10 MG Tablet PO (08:49)
[2024-01-13] MEDS: Multivitamins,Ther W-Minerals Tablet 1 TABLET PO (08:49)
[2024-01-13] MEDS: Cholecalciferol (VIT D3) 25 MCG TABLET (1,000 UNITS) 100 MCG PO (08:49)
[2024-01-13] MEDS: Gabapentin 100 MG Capsule PO ×2 (08:49→12:54)
[2024-01-13] MEDS: Nitrofurantoin Macrocrystals 100 MG Capsule PO ×2 (08:49→21:51)
[2024-01-13] MEDS: Ferrous Sulfate 325 MG Tablet PO (08:50)
[2024-01-13] MEDS: Senna/Docusate Sodium 1 Tablet 2 TABLET PO ×2 (08:50→21:51)
[2024-01-13] MEDS: Ascorbic Acid 500 MG Tablet PO (08:50)
[2024-01-13] MEDS: Calcium Carb/Vitamin D 1 TABLET Tablet 2 TABLET PO (08:50)
[2024-01-13] MEDS: APIXABAN 5 MG TABLET 10 MG PO ×2 (08:50→21:52)
--- NOTE | 2024-01-13 09:52 | PCM.PN.DRR ---
TCU RX Drug Regimen Review Subjective/Objective Subjective/Objective: Subjective: 83 YOF admitted to TCU on 01/13/24 s/p hospitalization for a left hip fracture requiring surgical intervention. Patient admitted to TCU for strengthening and rehabilitation prior to discharge home where she resides with her . Objective: Allergies adhesive Allergy (Verified 01/10/24 21:35) Rash aspirin (ASA) Allergy (Verified 01/10/24 21:35) Anaphylaxis atorvastatin (From Lipitor) Allergy (Verified 01/10/24 21:35) Unknown Dressing: Non-Medicated Allergy (Verified 01/10/24 21:35) Rash duoderm exenatide (From Byetta) Allergy (Verified 01/10/24 21:35) Unknown ezetimibe (From Zetia) Allergy (Verified 01/10/24 21:35) Rash irbesartan (From Avapro) Allergy (Verified 01/10/24 21:35) Swelling niacin Allergy (Verified 01/10/24 21:35) Unknown Penicillins Allergy (Verified 01/10/24 21:35) Rash pravastatin Allergy (Verified 01/10/24 21:35) Rash rosuvastatin (From Crestor) Allergy (Verified 01/10/24 21:35) Unknown simvastatin (From Zocor) Allergy (Verified 01/10/24 21:35) Rash Vqerbev-VDT-CaL Reductase Inhibitor (Ncetpap-Bkj-Cbe Reductase Inhibitor) Allergy (Verified 01/10/24 21:35) Other erythromycin base Adverse Reaction (Verified 01/10/24 21:35) Other etodolac Adverse Reaction (Verified 01/10/24 21:35) Unknown metformin Adverse Reaction (Verified 01/10/24 21:35) Diarrhea NSAIDS (Non-Steroidal Anti-Inflamma Adverse Reaction (Verified 01/10/24 21:35) Other Sulfa (Sulfonamide Antibiotics) Adverse Reaction (Verified 01/10/24 21:35) Rash Current Medications Generic Name Dose Route Start Last Admin Trade Name Freq PRN Reason Stop Dose Admin Acetaminophen 1,000 mg 01/12/24 22:00 01/13/24 05:55 Acetaminophen 500 Mg Tablet PO 1,000 mg Q8 CHANEL Administration Apixaban 10 mg 01/12/24 22:00 01/13/24 08:50 Apixaban 5 Mg Tablet PO 01/18/24 22:01 10 mg BID CHANEL Administration Apixaban 5 mg 01/19/24 10:00 Apixaban 5 Mg Tablet PO BID CHANEL Ascorbic Acid 500 mg 01/13/24 10:00 01/13/24 08:50 Ascorbic Acid 500 Mg Tablet PO 500 mg DAILY CHANEL Administration Calcitriol 0.5 mcg 01/13/24 10:00 01/13/24 08:49 Calcitriol 0.25 Mcg Capsule PO 0.5 mcg DAILY CHANEL Administration Calcium/Vitamin D 2 tablet 01/13/24 08:00 01/13/24 08:50 Calcium Carb/Vitamin D 1 [facility] Cholecalciferol 100 mcg 01/13/24 10:00 01/13/24 08:49 Cholecalciferol (Vit D3) 25 Mcg Tablet (1,000 Units) PO 100 mcg DAILY [facility] Administration Cyanocobalamin 1,000 mcg 01/15/24 10:00 Cyanocobalamin (B12) 1,000 Mcg/Ml Vial IM Q30D [facility] Diphenhydramine HCl 25 mg 01/12/24 18:00 01/13/24 08:48 Diphenhydramine 25 Mg Capsule PO 25 mg Q6H PRN Administration ITCHING Duloxetine HCl 40 mg 01/13/24 10:00 01/13/24 08:49 Duloxetine Hcl 20 Mg Capsule PO 40 mg DAILY [facility] Administration Ferrous Sulfate 325 mg 01/13/24 08:00 01/13/24 08:50 Ferrous Sulfate 325 Mg Table[facility] Administration Fluconazole 200 mg 01/14/24 10:00 Fluconazole 100 Mg Tablet PO MOWEFR [facility] Gabapentin 100 mg 01/13/24 07:45 01/13/24 08:49 Gabapentin 100 Mg Capsule PO 100 mg TIDCM CHANEL Administration Sodium Chloride 250 mls @ 15 mls/hr 01/12/24 16:55 IV .[id number] PRN Additional IVPB Infusion Sodium Chloride 250 mls @ 15 mls/hr 01/12/24 16:55 IV .[id number] PRN Saline Flush Loratadine 10 mg 01/13/24 10:00 01/13/24 08:49 Loratadine 10 Mg Tablet PO 10 mg DAILY CHANEL Administration Magnesium Citrate 300 ml 01/12/24 21:49 Magnesium Citrate 300 Ml PO DAILY PRN Constipation Melatonin 3 mg 01/12/24 22:00 01/12/24 20:15 Melatonin 3 Mg Tablet PO 3 mg QHS [facility] Administration Multivitamins/Minerals 1 tablet 01/13/24 08:00 01/13/24 08:49 Multivitamins,Ther W-Minerals Tablet PO 1 tablet DAILYCM [facility] Administration Nitrofurantoin Macrocrystals 100 mg 01/12/24 22:00 01/13/24 08:49 Nitrofurantoin Macrocrystals 100 Mg Capsule PO 01/19/24 22:01 100 mg BID [facility] Administration Non-Formulary Medication 5 mg 01/12/24 16:45 Tirzepatide [Mounjaro] SC QWEEK [facility] Oxycodone HCl 10 mg 01/12/24 22:04 01/13/24 05:56 Oxycodone 5 Mg Tablet PO 10 mg Q4H PRN PRN Administration Pain Score 4-10 Senna/Docusate Sodium 2 tablet 01/12/24 22:00 01/13/24 08:50 Senna/Docusate Sodium 1 Tablet PO 2 tablet BID [facility] Administration Sodium Chloride 10 - 40 ml 01/12/24 16:55 01/12/24 20:20 0.9% Saline Lock 10 Ml Syringe IV 10 ml UD PRN Administration SALINE FLUSH Tolterodine Tartrate 2 mg 01/12/24 22:00 01/12/24 20:14 Tolterodine Tartrate 2 Mg Cap.Sa PO 2 mg QHS [facility] Administration Tuberculin PPD 0.1 ml 01/13/24 10:00 Tuberculin,Purif.Prot.Deriv. 50 Tu/Ml Vial ID 01/13/24 10:01 X1 ONE Tuberculin PPD 0.1 ml 01/20/24 10:00 Tuberculin,Purif.Prot.Deriv. 50 Tu/Ml Vial ID 01/20/24 10:01 X1 ONE Problem List Yeast vaginitis (Acute) Allergic rhinitis (Acute) Iron deficiency anemia (Acute) Depression (Acute) Overactive bladder (Acute) Hyperparathyroidism (Acute) Pulmonary emboli (Acute) Essential (primary) hypertension (Acute) Diabetes (Acute) Urinary tract infection (Acute) Closed left hip fracture (Acute) Debility (Acute) Vital Signs Temp Pulse Resp BP Pulse Ox O2 Del Method 98.3 F 95 16 130/49 H 90 Room Air 01/12/24 16:50 01/12/24 16:50 01/12/24 17:00 01/12/24 16:50 01/12/24 17:00 01/12/24 17:00 Oxygen Delivery Method Room Air Weight: 89.857 kg Body Mass Index (BMI) 31.8 Sodium 136 mmol/L (136-145) 01/13/24 05:25 Potassium 4.2 mmol/L (3.5-5.1) 01/13/24 05:25 Chloride 105 mmol/L (98-107) 01/13/24 05:25 Carbon Dioxide 26.0 mmol/L (21.0-32.0) 01/13/24 05:25 Anion Gap 5 (5-15) 01/13/24 05:25 BUN 26 mg/dL (7-18) H 01/13/24 05:25 Creatinine 0.84 mg/dL (0.55-1.02) 01/13/24 05:25 Est GFR (MDRD) Af Amer 83 mL/min (>60) 01/13/24 05:25 Est GFR (MDRD) Non-Af 69 mL/min (>60) 01/13/24 05:25 BUN/Creatinine Ratio 30.9 RATIO (10-20) H 01/13/24 05:25 Glucose 177 mg/dL (74-106) H 01/13/24 05:25 Assessment/Plan: 1. Pain: Tylenol 1000mg PO Q8h, Oxycodone 10mg PO Q4h PRN Pain 4-10. Please continue to monitor for increased/decreased s/s pain, PRN medication usage, oversedation/respiratory depression/ constipation with narcotic use. - The patient had used 1 PRN dose of Oxycodone for hip pain rated 8/10, with post-med pain rated 6/10. 2. Pulmonary Embolism: Eliquis 10mg PO BID thru 01/17 then 5mg PO BID thereafter. Please continue to monitor for S/S bleeding/bruising, H/H (hgb 8.7/ hct 27.6 on 01/12), S/S recurrent clot formation. 3. UTI: Macrobid 100mg PO BID thru 01/19/24. Please continue to monitor renal function (CrCl 59mL/min on 01/12), S/S recurring UTI, culture data (none available). 4. Type II Diabetes: Mounjaro 5mcg SC once weekly. Please continue to monitor blood glucose, A1c (7% on 01/10), injection site irritation/redness. 5. Diabetic Neuropathy: Gabapentin 100mg PO TID. Please continue to monitor for oversedation, medication effectiveness. This is a BEER's criteria medication which can increase the risk of falls in patient s >65. Pleas continue to monitor patient for increased falls. 6. OAB: Detrol 2mg PO QHS. Please continue to monitor for urinary retention. This is a BEER's criteria medication which can increase the risk of delirium in patient's >65. Please continue to monitor for mental status changes. 7. Yeast Vaginitis: Fluconazole 200mg PO M//. Please continue to monitor for resolution of infection, nausea, diarrhea. Consider adding a stop date if clinically indicated, thank you 8. Allergic Rhinitis/ Itching: Claritin 10mg PO Daily, Benadryl 25mg PO Q6h PRN itching. Please continue to monitor for improvement in symptoms. Benadryl is a BEER's criteria medication which can increase the risk of delirium, as well as other anticholinergic effects. Please consider discontinuing medication if clinically indicated. 9. Hyperparathyroidism: Calcitriol 0.5mcg PO Daily. Please continue to monitor calcium levels (WNL 01/12), renal function (SCr 0.84 on 01/12). 10. Vitamin B12 Deficiency: B12 1000mcg IM once monthly. Please continue to monitor vitamin B levels (none on file), injection site reaction/irritation. 11. Insomnia: Melatonin 3mg PO QHS. Please continue to monitor for excessive sedation, medication effectiveness. If medication appears ineffective, can consider administering medications at least 2 hours prior to desired bedtime for maximal effectiveness. 12. Iron deficiency anemia: Ferrous sulfate 325mg PO Daily. Please continue to monitor iron studies (none on file), H/H. 13. General Wellness: Ascorbic acid 500mg PO Daily, Os-Chester+D 2 tab PO Daily, MVI 1 tab PO Daily, Vitamin D 100mcg PO Daily. 14. Bowel: Senna/Docusate 2 tab PO BID, Magnesium Citrate 300mL PO daily PRN. Please continue to monitor for increased/decreased constipation and/or diarrhea. - The patient has not had a documented BM since admission. If patient does not have a BM in the next 48-72hrs, please consider administering PRN medication to help facilitate a BM. Assessment/Plan for indications treated with psychotropic medications: 1. Depression: Cymbalta 40mcg PO Daily. Please consider a GDR by 07/2024 if clinically indicated, thank you. Medical chart and medication regimen reviewed. The following medication irregularities or issues were identified: 1. The patient is on several medications that increase the risk of delirium and confusion in the elderly (Benadryl, Detrol). Please consider discontinuing Benadryl since it is ordered PRN and patient is already on Claritin for allergies. X1 doses of Benadryl can be ordered if needed for allergic reaction/itching, thank you. 2. Vitamin B12 deficiency: No Vitamin B level on file upon EMR review. Please consider checking a B12 level to reassess if clinically indicated, thank you. 3. Iron Deficiency anemia: The patient takes iron supplementation, no iron studies on file. If clinically indicated, please consider obtaining iron studies. thank you. Date Date of Note:: 01/13/24
[2024-01-13] MEDS: Tuberculin,Purif.prot.deriv. 50 TU/ML Vial 0.1 ML ID (10:45)
--- NOTE | 2024-01-13 12:26 | CASEMGMT ---
Social Work- SW met with pt to complete initial assessment. Introduced self and role. Verified/updated contacts. Pt confirmed status as DNRCC-A, no intubation. Requested pt/family provide copies of advanced directives. Pt reports rehan Ruiz as HCPOA. PT's goal ia to return [place]. SW will continue to follow for d/c planning. MOY Logan
--- NOTE | 2024-01-13 14:40 | CASEMGMT ---
Social Work- SW met with pt to discuss advanced directives. Pt reports that she has HCPOA naming Sara Black, daughter, as primary agent. Pt was advised that documents are not on file and SW requested pt/family bring documents in as able. MOY Logan
[2024-01-13 16:00] VITALS: BP 129/58; PULSE 89; RESP 16; TEMP 37.2; O2SAT 95
--- NOTE | 2024-01-13 16:20 | NURSING ---
Call from dtr Sara who had questions about patient's meds. She wants to know why patient is on gabapentin. Told her it was added for pain. Sara reports she took if for years and she just got her off it. She thinks it is making her mother more confused. She is also concerned that pain meds cause bad itching, but then taking benadryl will cause her to be too groggy during the day for therapy. Said she's only every been on tylenol. RN discussed that patient has been in bad pain, needs to be controlled for her to be able to tolerate therapy and get stronger. She agreed and understood. She would like to speak with physician about medications. Left note for Dr. Rodriguez to call her. Also discussed Mounjaro, patient reported that family would bring med. Daughter said that's not true. Let her know RN would reach out to facility and see what can be done. She was thankful for help and would like to be updated for any changes in the future. Called [facility], they report they will be sending 2 doses of Mounjaro tomorrow.
[2024-01-13 16:49] LABS: Bedside Glucose 250 mg/dL (74-106)
[2024-01-13 21:41] LABS: Bedside Glucose 269 mg/dL (74-106)
[2024-01-13] MEDS: traMADol 50 MG Tablet PO (21:49)
[2024-01-13] MEDS: MELATONIN 3 MG TABLET PO (21:51)
[2024-01-13] MEDS: Tolterodine Tartrate 2 MG CAP.SA PO (21:52)
[2024-01-14 05:51] LABS: Hematocrit 26.6 % (37-47); Hemoglobin 8.2 g/dL (12.0-15.0)
[2024-01-14] MEDS: traMADol 50 MG Tablet PO ×3 (06:24→20:35)
[2024-01-14] MEDS: Acetaminophen 500 MG Tablet 1000 MG PO ×3 (06:25→20:42)
[2024-01-14 06:45] LABS: Bedside Glucose 172 mg/dL (74-106)
[2024-01-14] MEDS: Lidocaine 5% Patch 2 PATCH TOPICAL (07:22)
[2024-01-14] MEDS: Nitrofurantoin Macrocrystals 100 MG Capsule PO ×2 (07:22→20:37)
[2024-01-14] MEDS: APIXABAN 5 MG TABLET 10 MG PO ×2 (07:22→20:37)
[2024-01-14] MEDS: DULoxetine Hcl 20 MG Capsule 40 MG PO (07:22)
[2024-01-14] MEDS: Calcitriol 0.25 MCG Capsule 0.5 MCG PO (07:23)
[2024-01-14] MEDS: Cholecalciferol (VIT D3) 25 MCG TABLET (1,000 UNITS) 100 MCG PO (07:24)
[2024-01-14] MEDS: Calcium Carb/Vitamin D 1 TABLET Tablet 2 TABLET PO (07:25)
[2024-01-14] MEDS: Senna/Docusate Sodium 1 Tablet 2 TABLET PO (07:25)
[2024-01-14] MEDS: Multivitamins,Ther W-Minerals Tablet 1 TABLET PO (07:25)
[2024-01-14] MEDS: Ferrous Sulfate 325 MG Tablet PO (07:25)
[2024-01-14] MEDS: Ascorbic Acid 500 MG Tablet PO (07:25)
[2024-01-14] MEDS: Fluconazole 100 MG Tablet 200 MG PO (07:26)
[2024-01-14] MEDS: Loratadine 10 MG Tablet PO (07:26)
[2024-01-14 07:43] VITALS: BP 159/75; PULSE 72; RESP 16; TEMP 36.6; O2SAT 98
[2024-01-14 10:00] VITALS: PULSE 78
--- NOTE | 2024-01-14 10:42 | NURSING ---
Security Technician Note; Activity Asset: Marquis Pineda is independent in her choice of daily activities. She will watch tv, read work on word puzzles use her phone and visit w/family and friends. She welcomes visit from the lining sewer and therapy dog when available. Staff will encourage social activities, remind her of group and respect her right to say no.
[2024-01-14] MEDS: Glucerna Shake 120 ML LIQUID PO ×2 (14:28→17:44)
[2024-01-14] MEDS: Tolterodine Tartrate 2 MG CAP.SA PO (20:37)
[2024-01-14] MEDS: MELATONIN 3 MG TABLET PO (20:37)
[2024-01-14] MEDS: Menthol/Lanolin/Calamine/Znox 113 GM Tube 1 APPLIC TOPICAL (20:38)
[2024-01-15] MEDS: Acetaminophen 500 MG Tablet 1000 MG PO ×3 (04:58→21:40)
[2024-01-15 06:32] LABS: Hemoglobin 8.2 g/dL (12.0-15.0)
[2024-01-15 06:37] LABS: Bedside Glucose 151 mg/dL (74-106)
[2024-01-15 08:21] VITALS: BP 143/58; PULSE 93; RESP 17; TEMP 36.5; O2SAT 98
[2024-01-15] MEDS: TIRZEPATIDE 5 MG/0.5 ML SQ (08:22)
[2024-01-15] MEDS: Glucerna Shake 120 ML LIQUID PO ×3 (08:23→16:57)
[2024-01-15] MEDS: Multivitamins,Ther W-Minerals Tablet 1 TABLET PO (08:27)
[2024-01-15] MEDS: DULoxetine Hcl 20 MG Capsule 40 MG PO (08:27)
[2024-01-15] MEDS: Calcium Carb/Vitamin D 1 TABLET Tablet 2 TABLET PO (08:27)
[2024-01-15] MEDS: Loratadine 10 MG Tablet PO (08:27)
[2024-01-15] MEDS: Ferrous Sulfate 325 MG Tablet PO (08:27)
[2024-01-15] MEDS: APIXABAN 5 MG TABLET 10 MG PO ×2 (08:27→21:40)
[2024-01-15] MEDS: Cyanocobalamin (B12) 1,000 MCG/ML Vial 1000 MCG IM (08:28)
[2024-01-15] MEDS: Calcitriol 0.25 MCG Capsule 0.5 MCG PO (08:28)
[2024-01-15] MEDS: Cholecalciferol (VIT D3) 25 MCG TABLET (1,000 UNITS) 100 MCG PO (08:28)
[2024-01-15] MEDS: Nitrofurantoin Macrocrystals 100 MG Capsule PO ×2 (08:28→21:40)
[2024-01-15] MEDS: Ascorbic Acid 500 MG Tablet PO (08:28)
[2024-01-15] MEDS: Senna/Docusate Sodium 1 Tablet 2 TABLET PO (08:28)
[2024-01-15] MEDS: Menthol/Lanolin/Calamine/Znox 113 GM Tube 1 APPLIC TOPICAL ×2 (08:29→21:41)
[2024-01-15] MEDS: Lidocaine 5% Patch 2 PATCH TOPICAL (08:29)
[2024-01-15] MEDS: traMADol 50 MG Tablet PO ×2 (08:32→21:40)
[2024-01-15 11:09] VITALS: PULSE 87; RESP 16; O2SAT 97
--- NOTE | 2024-01-15 13:00 | NURSING ---
pt not sleeping well at night even with low dose melatonin. dr roblero updated, new order to increase. spoke with daughter, hardy to be sure she ok with increasing it. hardy stated definitely daughter would also like us to remind pt to take pain medication in middle of night if pain gets out of control. 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
[2024-01-15] MEDS: Tolterodine Tartrate 2 MG CAP.SA PO (21:40)
[2024-01-15] MEDS: MELATONIN 10 MG TABLET PO (21:40)
[2024-01-16] MEDS: traMADol 50 MG Tablet PO ×3 (04:01→17:42)
[2024-01-16] MEDS: Acetaminophen 500 MG Tablet 1000 MG PO ×3 (05:47→22:01)
[2024-01-16 06:29] LABS: Bedside Glucose 145 mg/dL (74-106)
[2024-01-16 08:54] VITALS: BP 175/74; PULSE 91; RESP 17; TEMP 36.6; O2SAT 96
[2024-01-16] MEDS: Calcium Carb/Vitamin D 1 TABLET Tablet 2 TABLET PO (09:00)
[2024-01-16] MEDS: Cholecalciferol (VIT D3) 25 MCG TABLET (1,000 UNITS) 100 MCG PO (09:00)
[2024-01-16] MEDS: Nitrofurantoin Macrocrystals 100 MG Capsule PO ×2 (09:00→22:01)
[2024-01-16] MEDS: Ascorbic Acid 500 MG Tablet PO (09:00)
[2024-01-16] MEDS: Loratadine 10 MG Tablet PO (09:00)
[2024-01-16] MEDS: Multivitamins,Ther W-Minerals Tablet 1 TABLET PO (09:00)
[2024-01-16] MEDS: DULoxetine Hcl 20 MG Capsule 40 MG PO (09:00)
[2024-01-16] MEDS: Lidocaine 5% Patch 2 PATCH TOPICAL (09:00)
[2024-01-16] MEDS: APIXABAN 5 MG TABLET 10 MG PO ×2 (09:00→22:01)
[2024-01-16] MEDS: Ferrous Sulfate 325 MG Tablet PO (09:00)
[2024-01-16] MEDS: Senna/Docusate Sodium 1 Tablet 2 TABLET PO (09:01)
[2024-01-16] MEDS: Calcitriol 0.25 MCG Capsule 0.5 MCG PO (09:01)
[2024-01-16] MEDS: Glucerna Shake 120 ML LIQUID PO ×3 (09:02→17:39)
[2024-01-16 11:08] VITALS: BP 143/81
[2024-01-16 11:10] VITALS: PULSE 82; RESP 16; O2SAT 96
[2024-01-16] MEDS: MELATONIN 10 MG TABLET PO (22:01)
[2024-01-16] MEDS: Tolterodine Tartrate 2 MG CAP.SA PO (22:01)
[2024-01-16] MEDS: Menthol/Lanolin/Calamine/Znox 113 GM Tube 1 APPLIC TOPICAL (22:02)
--- NOTE | 2024-01-16 22:16 | NURSING ---
Addendum entered by Sara Hook 01/16/24 23:25: Consulted Dr. Rodriguez via telephone, N.O. to change PRN Tramadol pain scale to 1-5 and morphine 10mg Q4H PRN Sublingual with a pain scale of 6-10. Also, N.O. for X-ray of Left hip. Original Note: Patient continues to c/o Left Hip pain with a score of 6/10 after administration of PRN Ultram. Patient often calls out for pain medicine before next dose is available. Interventions of ice to left hip, repositioning, and distraction are minimally effective. Patient's daughter has asked to discontinue all other pain medications except CHANEL tylenol and PRN Ultram. Patient is A/O x3 at all times and is able to voice needs. She says the Ultram does not last long. The product tester told this nurse the patient is guarding and yelling out in pain when having to roll her which makes daily ADLs and hygiene more challenging. Pain is not met with current interventions. This nurse updated daughter. Daughter voiced strongly that the patient cannot have oxycodone or hydrocodone due to allergy which makes patient have extreme itching and rash. Daughter explained to this nurse that patient's policy advisor is who recommended the discontinuation of Gabapentin because they did not determine a need for it, and it was very hard to get her to quit taking it, it took a year. This nurse explained to daughter that the x1 dose of morphine that was administered the first night patient was here did help patient rest and her pain needs were met. Daughter verbalized understanding and stated she would be OK if morphine was administered with a higher pain score rating due to patient's history with addiction. This nurse verbalized understanding and will consult Dr. Rodriguez.
--- NOTE | 2024-01-16 23:36 | RAD_ITS ---
STUDY: X-RAY - PELVIS AND LEFT HIP REASON FOR EXAM: Female, 83 years old patient with left-sided hip pain. TECHNIQUE: 3 views of the pelvis and hip. COMPARISON: Radiographs of the pelvis and left hip dated January 10, 2024. FINDINGS: There is a non-specific bowel gas pattern. Normal visualized soft tissue structures. There is diffuse demineralization of the osseous structures. The sacrum and iliac wings are obscured by bowel gas and/or stool. Normal bilateral superior and inferior pubic rami. There are degenerative changes of the pubic symphysis with articular narrowing and sclerosis. Normal bilateral ischial tuberosities. Patient has had open reduction and fixation of the left-sided intertrochanteric femoral fracture since previous study. There is osteoarthritic spur formation of the acetabular rim. Normal hip joint. RAD/HIP, UNI W/ Pelvis 2-3 Views IMPRESSION: Postoperative appearance of the left femur. Electronically Signed: Trina Brothers MD at 0:08 EDT ,
[2024-01-17] MEDS: MorphINE SOLN 10 MG/0.5 ML PO.SYRINGE SL (00:13)
[2024-01-17] MEDS: traMADol 50 MG Tablet PO ×2 (04:21→21:14)
[2024-01-17] MEDS: Acetaminophen 500 MG Tablet 1000 MG PO ×3 (05:29→21:14)
--- NOTE | 2024-01-17 05:55 | NURSING ---
This nurse called daughter with updates this morning. Daughter aware of pain management plan for patient and new orders from this shift. Continue to update daughter of any changes to patient's care.
[2024-01-17 06:26] LABS: Bedside Glucose 163 mg/dL (74-106)
[2024-01-17] MEDS: Ascorbic Acid 500 MG Tablet PO (08:59)
[2024-01-17] MEDS: Calcitriol 0.25 MCG Capsule 0.5 MCG PO (08:59)
[2024-01-17] MEDS: Glucerna Shake 120 ML LIQUID PO (08:59)
[2024-01-17] MEDS: Calcium Carb/Vitamin D 1 TABLET Tablet 2 TABLET PO (08:59)
[2024-01-17] MEDS: Senna/Docusate Sodium 1 Tablet 2 TABLET PO ×2 (08:59→21:13)
[2024-01-17] MEDS: Fluconazole 100 MG Tablet 200 MG PO (09:00)
[2024-01-17] MEDS: Multivitamins,Ther W-Minerals Tablet 1 TABLET PO (09:00)
[2024-01-17] MEDS: Loratadine 10 MG Tablet PO (09:00)
[2024-01-17] MEDS: Ferrous Sulfate 325 MG Tablet PO (09:00)
[2024-01-17] MEDS: Nitrofurantoin Macrocrystals 100 MG Capsule PO ×2 (09:00→21:13)
[2024-01-17] MEDS: busPIRone 15 MG TABLET 7.5 MG PO ×2 (09:00→21:10)
[2024-01-17] MEDS: Cholecalciferol (VIT D3) 25 MCG TABLET (1,000 UNITS) 100 MCG PO (09:01)
[2024-01-17] MEDS: DULoxetine Hcl 20 MG Capsule 40 MG PO (09:01)
[2024-01-17] MEDS: APIXABAN 5 MG TABLET 10 MG PO ×2 (09:01→21:13)
[2024-01-17] MEDS: Lidocaine 5% Patch 2 PATCH TOPICAL (09:02)
[2024-01-17] MEDS: Menthol/Lanolin/Calamine/Znox 113 GM Tube 1 APPLIC TOPICAL ×2 (09:02→21:11)
[2024-01-17 11:53] VITALS: BP 141/81; PULSE 101; RESP 14; TEMP 36.5; O2SAT 96
[2024-01-17 21:00] VITALS: PULSE 94; O2SAT 95
[2024-01-17] MEDS: MELATONIN 10 MG TABLET PO (21:13)
[2024-01-17] MEDS: Tolterodine Tartrate 2 MG CAP.SA PO (21:13)
[2024-01-18] MEDS: traMADol 50 MG Tablet PO ×3 (04:06→20:57)
[2024-01-18] MEDS: Acetaminophen 500 MG Tablet 1000 MG PO ×3 (05:53→20:49)
[2024-01-18 06:44] LABS: Bedside Glucose 159 mg/dL (74-106)
[2024-01-18] MEDS: Ferrous Sulfate 325 MG Tablet PO (08:54)
[2024-01-18] MEDS: Calcium Carb/Vitamin D 1 TABLET Tablet 2 TABLET PO (08:54)
[2024-01-18] MEDS: Multivitamins,Ther W-Minerals Tablet 1 TABLET PO (08:54)
[2024-01-18] MEDS: busPIRone 15 MG TABLET 7.5 MG PO ×2 (08:55→20:53)
[2024-01-18] MEDS: Loratadine 10 MG Tablet PO (08:56)
[2024-01-18] MEDS: DULoxetine Hcl 20 MG Capsule 40 MG PO (08:56)
[2024-01-18] MEDS: Nitrofurantoin Macrocrystals 100 MG Capsule PO ×2 (08:57→20:50)
[2024-01-18] MEDS: APIXABAN 5 MG TABLET 10 MG PO ×2 (08:57→20:52)
[2024-01-18] MEDS: Calcitriol 0.25 MCG Capsule 0.5 MCG PO (08:57)
[2024-01-18] MEDS: Ascorbic Acid 500 MG Tablet PO (08:58)
[2024-01-18] MEDS: Cholecalciferol (VIT D3) 25 MCG TABLET (1,000 UNITS) 100 MCG PO (08:58)
[2024-01-18] MEDS: Senna/Docusate Sodium 1 Tablet 2 TABLET PO ×2 (08:58→20:51)
[2024-01-18] MEDS: Lidocaine 5% Patch 2 PATCH TOPICAL (08:59)
[2024-01-18] MEDS: Menthol/Lanolin/Calamine/Znox 113 GM Tube 1 APPLIC TOPICAL ×2 (09:05→20:51)
[2024-01-18 10:42] VITALS: BMI 32.2
[2024-01-18] MEDS: MorphINE SOLN 10 MG/0.5 ML PO.SYRINGE SL (10:42)
[2024-01-18 12:26] VITALS: BP 128/66; PULSE 87; RESP 16; TEMP 36.1; O2SAT 96
[2024-01-18] MEDS: Glucerna Shake 120 ML LIQUID PO (13:19)
--- NOTE | 2024-01-18 15:34 | CASEMGMT ---
Social Work SW conducted BIMS () and PHQ-9 () for MDS assessment. SW explored positive responses. Pt reports loss of independence and decline in medical and functional status has contributed. Though, pt also stated I've felt like this my whole life. Sw offered for pt to discuss anti-depressants with this evening. Pt appreciative. SW offered emotional support and ongoing supportive visits as pt needs. SW reviewed MAR and pt is on two anti-depressants. Left written communication for Dr. Yani Jarrell, MANAGER BUSINESS PROCESS CHAMFERING MACHINE OPERATOR
[2024-01-18 20:00] VITALS: PULSE 86; O2SAT 96
[2024-01-18] MEDS: MELATONIN 10 MG TABLET PO (20:49)
[2024-01-18] MEDS: Tolterodine Tartrate 2 MG CAP.SA PO (20:50)
[2024-01-19] MEDS: traMADol 50 MG Tablet PO ×3 (03:09→20:17)
[2024-01-19] MEDS: Acetaminophen 500 MG Tablet 1000 MG PO ×3 (05:20→20:13)
[2024-01-19 06:52] LABS: Bedside Glucose 194 mg/dL (74-106)
[2024-01-19 08:39] VITALS: BP 106/55; PULSE 91; RESP 16; TEMP 36.1; O2SAT 98
[2024-01-19] MEDS: Glucerna Shake 120 ML LIQUID PO ×2 (08:42→13:30)
[2024-01-19] MEDS: Calcium Carb/Vitamin D 1 TABLET Tablet 2 TABLET PO (08:47)
[2024-01-19] MEDS: Ferrous Sulfate 325 MG Tablet PO (08:47)
[2024-01-19] MEDS: Loratadine 10 MG Tablet PO (08:47)
[2024-01-19] MEDS: Multivitamins,Ther W-Minerals Tablet 1 TABLET PO (08:47)
[2024-01-19] MEDS: Nitrofurantoin Macrocrystals 100 MG Capsule PO ×2 (08:47→20:12)
[2024-01-19] MEDS: Fluconazole 100 MG Tablet 200 MG PO (08:48)
[2024-01-19] MEDS: Lidocaine 5% Patch 2 PATCH TOPICAL (08:48)
[2024-01-19] MEDS: APIXABAN 5 MG TABLET PO ×2 (08:48→20:12)
[2024-01-19] MEDS: DULoxetine Hcl 60 MG Capsule PO (08:48)
[2024-01-19] MEDS: busPIRone 15 MG TABLET 7.5 MG PO ×2 (08:48→20:09)
[2024-01-19] MEDS: Senna/Docusate Sodium 1 Tablet 2 TABLET PO (08:49)
[2024-01-19] MEDS: Ascorbic Acid 500 MG Tablet PO (08:49)
[2024-01-19] MEDS: Cholecalciferol (VIT D3) 25 MCG TABLET (1,000 UNITS) 100 MCG PO (08:49)
[2024-01-19] MEDS: Calcitriol 0.25 MCG Capsule 0.5 MCG PO (08:49)
[2024-01-19] MEDS: Menthol/Lanolin/Calamine/Znox 113 GM Tube 1 APPLIC TOPICAL ×2 (08:53→20:11)
--- NOTE | 2024-01-19 09:19 | NURSING ---
Rabbit Dresser Note; MDS for 01/19/2024 Complete
--- NOTE | 2024-01-19 09:57 | CASEMGMT ---
Addendum entered by Yani Jarrell 01/19/24 16:33: Per [facility] at [facility]: She needs to be able to walk independently to the dining room for meals. That distance is 100 Feet, She can obviously use any device walker, cane etc. She also must be able to successfully toilet herself and preform appropriate hygiene after using the toilet. SW to relay to pt and dtr and assist with alternative DC planning. Original Note: Social Work IDT met with patient and phoned dtr for care plan meeting. Discussed patient's progress in PT/OT/ST/SN. Educated to [facility] insurance with NRD 01/24, EDC 01/28. Provided pt with written communication on insurance process and copay coverage during stay. Pt resides with at [facility], however, pt is needing increased assistance. SW to follow up with AL on LOF pt will need to be at to return safely. Requested dtr consider altnerative DC plans and SW will follow up 01/23, prior to insurance update. Dtr agreed. Pt unsure of alt. plan either. SW will continue to follow for DC planning. SW sent updates to [facility] via [facility]. Yani Jarrell, CIGAR INSPECTOR SEISMOLOGY TECHNICAL OFFICER
[2024-01-19] MEDS: MorphINE SOLN 10 MG/0.5 ML PO.SYRINGE SL (12:29)
[2024-01-19 20:00] VITALS: PULSE 92; O2SAT 95
[2024-01-19] MEDS: MELATONIN 10 MG TABLET PO (20:12)
[2024-01-19] MEDS: Senna/Docusate Sodium 1 Tablet PO (20:13)
[2024-01-19] MEDS: Tolterodine Tartrate 2 MG CAP.SA PO (20:14)
[2024-01-19 23:54] LABS: Squamous Epithelial Cells - UA 0 SEEN /hpf (5-10)
[2024-01-19 23:58] LABS: Color, Urine Yellow (Yellow); Glucose, Dipstick Normal (Normal); Ketone-Dipstick Negative (Negative); Leukocyte Esterase-Dipstick 500 /ul (Negative); Nitrite-Dipstick Positive (Negative); Occult Blood-Urine 250 /ul (Negative); Protein-Dipstick 30 mg/dl (Negative); Urine Bilirubin Dipstick Negative (Negative); Urine Clarity Cloudy (Clear); Urine Urobilinogen Normal (Normal)
[2024-01-20 01:20] LABS: Bacteria 2+ /hpf (None Seen); Mucous, Urine 2+ /hpf (<or=2+); Red Blood Cells-Urine 5-10 SEEN /hpf (0-5); White Blood Cells >100 SEEN /hpf (0-5)
[2024-01-20] MEDS: Acetaminophen 500 MG Tablet 1000 MG PO ×3 (05:25→21:13)
[2024-01-20 06:02] LABS: Absolute Lymphocyte Count 1.51 X10^3/uL (0.83-4.51); Absolute Neutrophil Count 7.5 X10^3/uL (2.0-7.7); Basophil# 0.07 X10^3/uL; Basophil% 0.7 % (0-1); Eosinophil# 0.37 X10^3/uL; Eosinophils% 3.5 % (0-5); Hematocrit 28.8 % (37-47); Hemoglobin 8.7 g/dL (12.0-15.0); Lymphocyte # 1.51 X10^3/ul (0.83-4.51); Lymphocyte % 14.4 % (19-41); Mean Corp Hgb Conc 30.2 g/dL (32-36); Mean Corpuscular Hgb 28.5 pg (27.0-32.0); Mean Corpuscular Volume 94.4 fL (81-99); Mean Platelet Vol. 10.2 fl (6.2-12.0); Monocyte# 0.94 X10^3/uL; NRBC Flagged by Analyzer 0 % (0-5); Neutrophil # 7.47 X10^3/uL (2.7-7.7); Neutrophil % 71.3 % (47-70); Platelet Count 490 K/mm3 (150-450); RBC Distribution Width CV 15.2 % (11.6-14.6); RBC Distribution Width SD 51.8 fl (35.1-43.9); Red Blood Count 3.05 M/mm3 (4.2-5.4); White Blood Count 10.5 K/mm3 (4.4-11.0)
[2024-01-20 06:44] LABS: Bedside Glucose 165 mg/dL (74-106)
[2024-01-20 06:49] LABS: Anion Gap 5 (5-15); BUN 16 mg/dL (7-18); BUN/Creat Ratio 29.7 RATIO (10-20); Calcium,Total 8.8 mg/dL (8.5-10.1); Chloride 101 mmol/L (98-107); Creatinine, Serum 0.54 mg/dL (0.55-1.02); EST Glomerular Filtration Rate 115 mL/min (>60); Est Glom Filt Rate - Afr Amer 139 mL/min (>60); Estimated Creatinine Clearance 62.51 ml/min; Glucose 165 mg/dL (74-106); Sodium Level 135 mmol/L (136-145)
--- NOTE | 2024-01-20 08:00 | NURSING ---
dr roblero aware of UA results, no orders at this time, awaiting culture results
[2024-01-20 09:19] VITALS: BP 137/80; PULSE 106; RESP 18; TEMP 36; O2SAT 92
[2024-01-20] MEDS: Multivitamins,Ther W-Minerals Tablet 1 TABLET PO (09:22)
[2024-01-20] MEDS: Ferrous Sulfate 325 MG Tablet PO (09:23)
[2024-01-20] MEDS: busPIRone 15 MG TABLET 7.5 MG PO ×2 (09:23→21:13)
[2024-01-20] MEDS: Calcium Carb/Vitamin D 1 TABLET Tablet 2 TABLET PO (09:23)
[2024-01-20] MEDS: Loratadine 10 MG Tablet PO (09:24)
[2024-01-20] MEDS: APIXABAN 5 MG TABLET PO ×2 (09:24→21:13)
[2024-01-20] MEDS: DULoxetine Hcl 60 MG Capsule PO (09:24)
[2024-01-20] MEDS: Menthol/Lanolin/Calamine/Znox 113 GM Tube 1 APPLIC TOPICAL ×2 (09:24→21:14)
[2024-01-20] MEDS: Calcitriol 0.25 MCG Capsule 0.5 MCG PO (09:25)
[2024-01-20] MEDS: Cholecalciferol (VIT D3) 25 MCG TABLET (1,000 UNITS) 100 MCG PO (09:25)
[2024-01-20] MEDS: Ascorbic Acid 500 MG Tablet PO (09:25)
[2024-01-20] MEDS: Senna/Docusate Sodium 1 Tablet PO (09:25)
[2024-01-20] MEDS: Lidocaine 5% Patch 2 PATCH TOPICAL (09:26)
[2024-01-20] MEDS: traMADol 50 MG Tablet PO (09:31)
[2024-01-20] MEDS: Tuberculin,Purif.prot.deriv. 50 TU/ML Vial 0.1 ML ID (09:32)
--- NOTE | 2024-01-20 13:18 | NURSING ---
Updated patient and daughter (via phone) that a patient and staff member tested positive for covid.
[2024-01-20] MEDS: Glucerna Shake 120 ML LIQUID PO (17:10)
[2024-01-20] MEDS: Tolterodine Tartrate 2 MG CAP.SA PO (21:13)
[2024-01-20] MEDS: MELATONIN 10 MG TABLET PO (21:13)
[2024-01-21] MEDS: MorphINE SOLN 10 MG/0.5 ML PO.SYRINGE SL ×2 (04:06→08:57)
[2024-01-21] MEDS: Acetaminophen 500 MG Tablet 1000 MG PO ×3 (05:40→21:07)
[2024-01-21] MEDS: traMADol 50 MG Tablet PO ×2 (06:15→21:01)
[2024-01-21 07:05] LABS: Bedside Glucose 155 mg/dL (74-106)
--- NOTE | 2024-01-21 07:35 | RAD_ITS ---
STUDY: X-RAY - LEFT FEMUR REASON FOR STUDY: Female, 83 years old. Pain. TECHNIQUE: 5 view(s) of the femur. COMPARISON: None. FINDINGS: Osteopenia. Moderate arthrosis of the left hip. Intramedullary johnson with interlocking cancellous screw within the femur with callus formation at the previously described fracture site. Total knee arthroplasty. Vascular calcification. RAD/Femur Min 2 Views IMPRESSION: Osteopenia with ORIF of proximal femur/hip and knee. No acute finding. Electronically Signed: Valentin Silva MD at 11:30 EDT ,
--- NOTE | 2024-01-21 07:35 | RAD_ITS ---
STUDY: X-RAY - LUMBAR SPINE REASON FOR EXAM: Female, 83 years old. Pain. TECHNIQUE: 2 view(s) of the lumbar spine were obtained. COMPARISON: CT of the lumbar spine dated June 13, 2017 FINDINGS: Marked osteopenia. No scoliosis. Normal vertebral alignment. Anterior wedge compression deformity of L2 which is new since the comparison CT study but, age indeterminate. Diffuse moderate lower thoracic and lumbosacral facet sclerosis. Diffuse intervertebral disc space narrowing most marked at T10-T11 to L1-L2. Marked vascular calcification with clips projected over the upper left abdomen, left mid abdomen and right lower abdomen.. RAD/Lumbar Spine 2 or 3 Views IMPRESSION: Osteopenia with new anterior wedge compression deformity of L2, age indeterminate. Diffuse lower thoracic and lumbosacral spondylosis as described. Electronically Signed: Valentin Silva MD at 11:35 EDT ,
--- NOTE | 2024-01-21 07:35 | RAD_ITS ---
STUDY: X-RAY - PELVIS REASON FOR EXAM: Female, 83 years old. Pain. TECHNIQUE: One view of the pelvis was obtained. COMPARISON: June 12, 2023 FINDINGS: Normal bowel gas pattern with air seen to the rectum. Mild amount feces in the colon. Clips projected over the right lower abdomen and upper mid pelvis. Phleboliths.. Osteopenia. Normal bilateral iliac wings, sacroiliac joints and visualized sacrum. Normal visualized bilateral superior and inferior pubic rami. Moderate arthrosis of the symphysis pubis. Normal ischial tuberosities. Mild arthrosis of the right hip. Intramedullary johnson within the proximal left femur with interlocking cancellus screw and deformity from the prior intertrochanteric fracture. RAD/Pelvis 1 or 2 Views IMPRESSION: Osteopenia with arthrosis of the symphysis pubis and right hip. ORIF of left proximal femur with mild arthrosis of the right hip. No acute abnormality. Electronically Signed: Valentin Silva MD at 11:40 EDT ,
[2024-01-21] MEDS: Menthol/Lanolin/Calamine/Znox 113 GM Tube 1 APPLIC TOPICAL ×2 (08:55→21:04)
[2024-01-21] MEDS: DULoxetine Hcl 60 MG Capsule PO (08:55)
[2024-01-21] MEDS: busPIRone 15 MG TABLET 7.5 MG PO ×2 (08:55→21:03)
[2024-01-21] MEDS: Ferrous Sulfate 325 MG Tablet PO (08:55)
[2024-01-21] MEDS: Multivitamins,Ther W-Minerals Tablet 1 TABLET PO (08:55)
[2024-01-21] MEDS: Loratadine 10 MG Tablet PO (08:55)
[2024-01-21] MEDS: Fluconazole 100 MG Tablet 200 MG PO (08:55)
[2024-01-21] MEDS: Calcium Carb/Vitamin D 1 TABLET Tablet 2 TABLET PO (08:55)
[2024-01-21] MEDS: Cholecalciferol (VIT D3) 25 MCG TABLET (1,000 UNITS) 100 MCG PO (08:56)
[2024-01-21] MEDS: Lidocaine 5% Patch 2 PATCH TOPICAL (08:56)
[2024-01-21] MEDS: Senna/Docusate Sodium 1 Tablet PO ×2 (08:56→21:06)
[2024-01-21] MEDS: APIXABAN 5 MG TABLET PO ×2 (08:56→21:05)
[2024-01-21] MEDS: Ascorbic Acid 500 MG Tablet PO (08:56)
[2024-01-21] MEDS: Calcitriol 0.25 MCG Capsule 0.5 MCG PO (08:56)
[2024-01-21 10:06] VITALS: BP 130/59; PULSE 89; RESP 16; TEMP 36.3; O2SAT 99
--- NOTE | 2024-01-21 10:55 | RAD_ITS ---
STUDY: X-RAY - LEFT TIBIA AND FIBULA REASON FOR EXAM: Female, 83 years old. Pain. TECHNIQUE: 2 view(s) of the tibia and fibula were obtained on 3 images. COMPARISON: None. FINDINGS: Osteopenia. Total knee arthroplasty in anatomic alignment. Normal tibia and fibula. Large calcaneal spurs. Vascular calcification. RAD/Tibia & Fibula 2 Views IMPRESSION: Osteopenia with no acute finding. Electronically Signed: Valentin Silva MD at 11:33 EDT ,
[2024-01-21] MEDS: Tolterodine Tartrate 2 MG CAP.SA PO (21:05)
[2024-01-21] MEDS: MELATONIN 10 MG TABLET PO (21:06)
[2024-01-22] MEDS: Acetaminophen 500 MG Tablet 1000 MG PO ×3 (05:08→21:16)
[2024-01-22 06:52] LABS: Bedside Glucose 157 mg/dL (74-106)
[2024-01-22] MEDS: Cholecalciferol (VIT D3) 25 MCG TABLET (1,000 UNITS) 100 MCG PO (09:17)
[2024-01-22] MEDS: Ferrous Sulfate 325 MG Tablet PO (09:17)
[2024-01-22] MEDS: APIXABAN 5 MG TABLET PO ×2 (09:17→21:14)
[2024-01-22] MEDS: DULoxetine Hcl 60 MG Capsule PO (09:18)
[2024-01-22] MEDS: Calcium Carb/Vitamin D 1 TABLET Tablet 2 TABLET PO (09:18)
[2024-01-22] MEDS: Loratadine 10 MG Tablet PO (09:18)
[2024-01-22] MEDS: busPIRone 15 MG TABLET 7.5 MG PO ×2 (09:18→21:11)
[2024-01-22] MEDS: Multivitamins,Ther W-Minerals Tablet 1 TABLET PO (09:18)
[2024-01-22] MEDS: Calcitriol 0.25 MCG Capsule 0.5 MCG PO (09:18)
[2024-01-22] MEDS: Ascorbic Acid 500 MG Tablet PO (09:18)
[2024-01-22] MEDS: Senna/Docusate Sodium 1 Tablet PO ×2 (09:19→21:15)
[2024-01-22] MEDS: Lidocaine 5% Patch 2 PATCH TOPICAL (09:20)
[2024-01-22] MEDS: Menthol/Lanolin/Calamine/Znox 113 GM Tube 1 APPLIC TOPICAL ×2 (09:20→21:12)
[2024-01-22] MEDS: TIRZEPATIDE 5 MG/0.5 ML SQ (09:20)
--- NOTE | 2024-01-22 11:57 | NURSING ---
Pt noted to have green discharge around Ding cath this AM. Dr. Rodriguez updated on Micro report and findings. No other symptoms of UTI noted at this time.
--- NOTE | 2024-01-22 11:59 | NURSING ---
Pt noted to have green odorous discharge around Ding Cath. No other symptoms of UTI at this time. Dr. Rodriguez updated on findings and Preliminary Micro report. Per Dr. Rodriguez wait for final results. Will continue to monitor pt.
[2024-01-22 15:54] VITALS: BP 127/52; PULSE 91; RESP 16; TEMP 36.9; O2SAT 95
[2024-01-22] MEDS: MorphINE SOLN 10 MG/0.5 ML PO.SYRINGE SL (19:16)
[2024-01-22] MEDS: traMADol 50 MG Tablet PO (21:06)
[2024-01-22] MEDS: Tolterodine Tartrate 2 MG CAP.SA PO (21:14)
[2024-01-22] MEDS: MELATONIN 10 MG TABLET PO (21:14)
[2024-01-23] MEDS: Acetaminophen 500 MG Tablet 1000 MG PO ×3 (06:04→20:54)
[2024-01-23 06:34] LABS: Bedside Glucose 134 mg/dL (74-106)
[2024-01-23 07:53] VITALS: BP 166/82; PULSE 92; RESP 17; TEMP 36.7; O2SAT 93
[2024-01-23] MEDS: Ferrous Sulfate 325 MG Tablet PO (07:58)
[2024-01-23] MEDS: Multivitamins,Ther W-Minerals Tablet 1 TABLET PO (07:58)
[2024-01-23] MEDS: Calcium Carb/Vitamin D 1 TABLET Tablet 2 TABLET PO (07:59)
[2024-01-23] MEDS: busPIRone 15 MG TABLET 7.5 MG PO ×2 (07:59→20:52)
[2024-01-23] MEDS: Menthol/Lanolin/Calamine/Znox 113 GM Tube 1 APPLIC TOPICAL ×2 (07:59→20:55)
[2024-01-23] MEDS: DULoxetine Hcl 60 MG Capsule PO (08:00)
[2024-01-23] MEDS: Loratadine 10 MG Tablet PO (08:00)
[2024-01-23] MEDS: APIXABAN 5 MG TABLET PO ×2 (08:00→20:53)
[2024-01-23] MEDS: Lidocaine 5% Patch 2 PATCH TOPICAL (08:01)
[2024-01-23] MEDS: Cholecalciferol (VIT D3) 25 MCG TABLET (1,000 UNITS) 100 MCG PO (08:02)
[2024-01-23] MEDS: Ascorbic Acid 500 MG Tablet PO (08:02)
[2024-01-23] MEDS: Calcitriol 0.25 MCG Capsule 0.5 MCG PO (08:02)
[2024-01-23] MEDS: Senna/Docusate Sodium 1 Tablet PO ×2 (08:02→20:55)
[2024-01-23 09:38] VITALS: BP 163/85; PULSE 94
[2024-01-23] MEDS: traMADol 50 MG Tablet PO (09:47)
[2024-01-23 10:51] VITALS: BP 167/80; PULSE 92
--- NOTE | 2024-01-23 11:11 | NURSING ---
Patient having increased blood pressure this shift. Patient is asymptomatic. Call placed to Dr. Rodriguez. New order for hydralazine 10mg PO TID, first dose now and repeat BP.
[2024-01-23 11:32] VITALS: PULSE 92
[2024-01-23] MEDS: hydrALAZINE 10 MG Tablet PO ×2 (11:32→20:51)
[2024-01-23 12:36] VITALS: BP 114/64; PULSE 89
--- NOTE | 2024-01-23 19:21 | NURSING ---
notified of final urine culture results, no new orders at this time.
[2024-01-23 20:51] VITALS: BP 143/59; PULSE 87
[2024-01-23] MEDS: Tolterodine Tartrate 2 MG CAP.SA PO (20:54)
[2024-01-23] MEDS: MELATONIN 10 MG TABLET PO (20:54)
[2024-01-23] MEDS: MorphINE SOLN 10 MG/0.5 ML PO.SYRINGE SL (20:58)
[2024-01-24 05:10] VITALS: BP 156/62; PULSE 91
[2024-01-24] MEDS: Acetaminophen 500 MG Tablet 1000 MG PO ×3 (05:10→22:15)
[2024-01-24] MEDS: hydrALAZINE 10 MG Tablet PO ×3 (05:10→22:15)
[2024-01-24 06:40] LABS: Bedside Glucose 130 mg/dL (74-106)
[2024-01-24] MEDS: MorphINE SOLN 10 MG/0.5 ML PO.SYRINGE SL ×2 (06:40→10:45)
[2024-01-24 09:33] VITALS: BP 146/81; PULSE 95; RESP 15; O2SAT 95
[2024-01-24] MEDS: DULoxetine Hcl 60 MG Capsule PO (09:36)
[2024-01-24] MEDS: Loratadine 10 MG Tablet PO (09:36)
[2024-01-24] MEDS: Cholecalciferol (VIT D3) 25 MCG TABLET (1,000 UNITS) 100 MCG PO (09:36)
[2024-01-24] MEDS: Calcitriol 0.25 MCG Capsule 0.5 MCG PO (09:36)
[2024-01-24] MEDS: Senna/Docusate Sodium 1 Tablet PO ×2 (09:36→22:16)
[2024-01-24] MEDS: Calcium Carb/Vitamin D 1 TABLET Tablet 2 TABLET PO (09:37)
[2024-01-24] MEDS: busPIRone 15 MG TABLET 7.5 MG PO ×2 (09:37→22:15)
[2024-01-24] MEDS: Multivitamins,Ther W-Minerals Tablet 1 TABLET PO (09:37)
[2024-01-24] MEDS: Ascorbic Acid 500 MG Tablet PO (09:37)
[2024-01-24] MEDS: Ferrous Sulfate 325 MG Tablet PO (09:38)
[2024-01-24] MEDS: APIXABAN 5 MG TABLET PO ×2 (09:38→22:16)
[2024-01-24] MEDS: Fluconazole 100 MG Tablet 200 MG PO (09:39)
[2024-01-24] MEDS: Lidocaine 5% Patch 2 PATCH TOPICAL (09:41)
[2024-01-24] MEDS: Menthol/Lanolin/Calamine/Znox 113 GM Tube 1 APPLIC TOPICAL ×2 (09:42→22:17)
--- NOTE | 2024-01-24 11:11 | CASEMGMT ---
Social Work SW phoned dtr to follow up on DC planning as pt's insurance update is tomorrow. Dtr requested review the insurance process and coverage and need for alternative DC plans again. Dtr apologized as she was on vacation last week and was not be attentive to pt's medical care. Dtr began expressing frustration with her perceived lack of communication from TCU staff on pt's updates with imaging, medication changes and issues. Dtr explained she had to find out about [pts] blood pressure issue from a visitor in [pts] room when the nurse was telling [the pt]. SW provided supportive listening, acknowledged concerns and apologized for frustrations. SW offered to refer to charge nurse for concerns and Dr. Rodriguez to explain medical updates. Dtr agreed and appreciative. Of note: dtr did state pt has dx of early onset Alzheimer's from her [facility] PCP after undergoing several tests. Dtr did express frustrations with the lack of continuity of records from [facility] with [facility]. SW educated to insurance process during TCU, as this is skilled care, and IDT recommending SNF care for pt at DC as pt is x2 assist. [facility] is unable to accept pt at current LOF. SW educated to part B coverage for ongoing therapy coverage at a SNF. However, room and board is OOP cost or Medicaid eligible. Pt is paying OOP for AL, thus can pay for intermediate SNF care. SW offered to provide list of INN SNFs in [facility] to dtr that includes quality and resource data via CarePort Guide. Dtr agreed and provided email address for link to be sent. Dtr to review choices and make selections of SNF preferences for this worker to place referrals. Once accepting facilities are determined, dtr to provide options to pt for final selection. SW will continue to follow for support and DC planning. Yani Jarrell, NEGRITO HIRSCHW
--- NOTE | 2024-01-24 12:25 | NURSING ---
Called daughter to address her questions/concerns. Sara expressed frustration that she hadn't been updated on some changes in patient care. She asked about last urine test, discussed that Dr. Rodriguez was aware of results with no new orders. She asked about xrays, why they were done. Reviewed them with her and let her know they were done for pain. She reports that patient has had injections in her back previously, that pain was well controlled with injections before fall and hospital admission. She sees a [facility] doctor for injections. She asked about her BP being elevated. Reviewed BPs and that hydralazine had been added. Discussed her pain meds, that she's on roxanol and tramadol, has only had 1 dose of each in the last 24hrs. Sara was very pleasant the entire conversation and thanked nurse for answering all questions. She asked to be updated for any new changes or orders. Let her know this nurse would pass that along. She also would like to speak with Dr. Rodriguez, left note for him to call her.
[2024-01-24 13:54] VITALS: BP 146/81; PULSE 94
--- NOTE | 2024-01-24 14:25 | MDS.RN ---
Information for the MDS was obtained from review of the clinical record, interview of resident, staff, and direct observation of resident?s care.
[2024-01-24 22:15] VITALS: BP 143/67; PULSE 92
[2024-01-24] MEDS: Tolterodine Tartrate 2 MG CAP.SA PO (22:15)
[2024-01-24] MEDS: MELATONIN 10 MG TABLET PO (22:15)
[2024-01-24] MEDS: traMADol 50 MG Tablet PO (22:16)
[2024-01-24 22:24] VITALS: BP 143/67; PULSE 92
[2024-01-25] MEDS: MorphINE SOLN 10 MG/0.5 ML PO.SYRINGE SL ×4 (03:07→20:42)
[2024-01-25 06:47] LABS: Bedside Glucose 144 mg/dL (74-106)
[2024-01-25 06:53] VITALS: BP 136/67; PULSE 88
[2024-01-25] MEDS: hydrALAZINE 10 MG Tablet PO ×3 (06:53→20:38)
[2024-01-25] MEDS: Acetaminophen 500 MG Tablet 1000 MG PO ×3 (06:54→20:39)
[2024-01-25 06:55] VITALS: BP 136/67; PULSE 88
[2024-01-25] MEDS: DULoxetine Hcl 60 MG Capsule PO (09:43)
[2024-01-25] MEDS: Senna/Docusate Sodium 1 Tablet PO ×2 (09:43→20:40)
[2024-01-25] MEDS: Cholecalciferol (VIT D3) 25 MCG TABLET (1,000 UNITS) 100 MCG PO (09:43)
[2024-01-25] MEDS: busPIRone 15 MG TABLET 7.5 MG PO ×2 (09:43→20:41)
[2024-01-25] MEDS: Multivitamins,Ther W-Minerals Tablet 1 TABLET PO (09:43)
[2024-01-25] MEDS: Loratadine 10 MG Tablet PO (09:43)
[2024-01-25] MEDS: Ferrous Sulfate 325 MG Tablet PO (09:43)
[2024-01-25] MEDS: Ascorbic Acid 500 MG Tablet PO (09:43)
[2024-01-25] MEDS: Calcium Carb/Vitamin D 1 TABLET Tablet 2 TABLET PO (09:43)
[2024-01-25] MEDS: Lidocaine 5% Patch 2 PATCH TOPICAL (09:43)
[2024-01-25] MEDS: APIXABAN 5 MG TABLET PO ×2 (09:43→20:39)
[2024-01-25] MEDS: Calcitriol 0.25 MCG Capsule 0.5 MCG PO (09:43)
[2024-01-25] MEDS: Menthol/Lanolin/Calamine/Znox 113 GM Tube 1 APPLIC TOPICAL ×2 (09:44→20:37)
[2024-01-25] MEDS: traMADol 50 MG Tablet PO (09:49)
[2024-01-25 14:05] VITALS: PULSE 92
[2024-01-25 14:08] VITALS: BP 121/56; PULSE 92; RESP 16; TEMP 36.7; O2SAT 96
--- NOTE | 2024-01-25 15:17 | CASEMGMT ---
Social Work SW phoned dtr to update insurance approved with NRD 01/31. Dtr very happy. SW inquired about SNF choices. Dtr stated she broached the topic with pt yesterday and pt was not in a good mindset to have that conversation. Both dtrs are visiting pt this evening and with pt approved more time from insurance, dtr is hopeful pt will be willing to select preferences. SW appreciative and will await update from dtr tomorrow. Yani Jarrell, ASSESSMENT MANAGER EMPLOYMENT APPEALS EXAMINER
--- NOTE | 2024-01-25 20:30 | NURSING ---
This nurse entered resident's room to to administer medications and she has her daughter, Sara, on speakerphone. Sara questioned this nurse why resident is on medication for blood pressure and
--- NOTE | 2024-01-25 20:30 | NURSING ---
This nurse entered resident's room to administer medications and she is on her cell phone. Daughter, Sara, on speakerphone and identity verified w/ this nurse prior to discussing any information. Spoke w/ Sara for several minutes. She is questioning if resident has any new orders for medication due to lack of communication from staff w/ care updates. This nurse informed Sara that Hydralazine was the most recent new medication order from 01/22. Sara notes resident has a hx of low BP and is unsure why BP medication was ordered. Educated Sara when evaluating elevated BP several factors are considered by nursing including but not limited to: assessing readings in both arms if appropriate, questioning if headache and/or vision change is present, pain level, questioning resident if there is any hx of elevated BP, and viewing a trend of BP readings. The goal is to prevent TN, CVA, or other complications if readings are not controlled. Sara acknowledges that resident's memory is poor and that she may be unable to answer some questions asked. She becomes increasingly frustrated several times during the conversation and verbalizes that she thought this issue has already been addressed. Informed Sara this nurse would like to discuss this issue w/ the charge nurse tomorrow and/or place a communication note in the chart. She is agreeable to this plan. Phone call ends. Resident apologizes to this nurse for her daughter's conduct on the phone and acknowledges that she does not recall most information provided by staff. Will report to oncoming nurse.
[2024-01-25 20:38] VITALS: BP 117/75; PULSE 88
[2024-01-25] MEDS: Tolterodine Tartrate 2 MG CAP.SA PO (20:38)
[2024-01-25] MEDS: MELATONIN 10 MG TABLET PO (20:40)
[2024-01-26 06:01] VITALS: BP 123/57; PULSE 88
[2024-01-26] MEDS: hydrALAZINE 10 MG Tablet PO ×3 (06:01→21:13)
[2024-01-26] MEDS: Acetaminophen 500 MG Tablet 1000 MG PO ×3 (06:02→21:20)
[2024-01-26 06:29] LABS: Bedside Glucose 148 mg/dL (74-106)
[2024-01-26] MEDS: busPIRone 15 MG TABLET 7.5 MG PO ×2 (09:22→21:16)
[2024-01-26] MEDS: traMADol 50 MG Tablet PO ×2 (09:22→21:26)
[2024-01-26] MEDS: APIXABAN 5 MG TABLET PO ×2 (09:23→21:18)
[2024-01-26] MEDS: Senna/Docusate Sodium 1 Tablet PO ×2 (09:23→21:19)
[2024-01-26] MEDS: DULoxetine Hcl 60 MG Capsule PO (09:23)
[2024-01-26] MEDS: Loratadine 10 MG Tablet PO (09:23)
[2024-01-26] MEDS: Ascorbic Acid 500 MG Tablet PO (09:23)
[2024-01-26] MEDS: Calcitriol 0.25 MCG Capsule 0.5 MCG PO (09:23)
[2024-01-26] MEDS: Ferrous Sulfate 325 MG Tablet PO (09:23)
[2024-01-26] MEDS: Multivitamins,Ther W-Minerals Tablet 1 TABLET PO (09:23)
[2024-01-26] MEDS: Calcium Carb/Vitamin D 1 TABLET Tablet 2 TABLET PO (09:23)
[2024-01-26] MEDS: Fluconazole 100 MG Tablet 200 MG PO (09:23)
[2024-01-26] MEDS: Cholecalciferol (VIT D3) 25 MCG TABLET (1,000 UNITS) 100 MCG PO (09:23)
[2024-01-26 09:24] VITALS: BP 136/66; PULSE 93; RESP 18; TEMP 36.1; O2SAT 91
[2024-01-26] MEDS: Menthol/Lanolin/Calamine/Znox 113 GM Tube 1 APPLIC TOPICAL ×2 (09:24→21:16)
[2024-01-26] MEDS: Lidocaine 5% Patch 2 PATCH TOPICAL (09:24)
[2024-01-26] MEDS: Magnesium Citrate 300 ML PO (10:25)
[2024-01-26] MEDS: MorphINE SOLN 10 MG/0.5 ML PO.SYRINGE SL (12:04)
[2024-01-26 13:28] VITALS: BP 117/67; PULSE 94
--- NOTE | 2024-01-26 15:51 | CASEMGMT ---
Social Work SW phoned dtr to inquire about SNF referrals. Dtr provided choices: [facility], [facility], [facility], [facility]. SW to place referrals. Dtr (Sara) then explained a situation that pt's other dtr encountered during a visit. Per the Sara, ST entered the room and inquired to the dtr about pt's baseline memory. Sara explained her sister was caught off guard and taken aback by the encounter, stating it was odd that the ST would ask that question in front of the pt. The sister expressed being uncomfortable, stating, she was not going to talk about her mom in front of her. SW explained this worker was not there for the interaction, but staff does involve the patient in their treatment plan and conversation, regardless of their mental capacity. Pt is still able to hold conversation and participate. SW explained that is average protocol and conversation for ST and other staff to have with family members. Dtr replied, oh, okay. Well for my sister to have a problem with something, that means something. SW explained this worker does not manage the ST but offered to refer Sara to ST sales department supervisor to discuss further. Sara denied stating, oh no, no, it's fine. I was just curious. Sara then went to ask about why staff continuing talking to the pt and telling her medical details, when the pt cannot answer the questions, remember the information and is confused. Why doesn't anyone know she has Alzheimer's?. SW reiterated that the pt is A&O and is to be involved in her care and treatment plan. Staff does understand there is some cognitive impairment with the pt, however, since there is no dx of Alzheimer's in the pt's EMR, staff is not going to confirm to the dtr that pt has Alzheimer's. SW educated to dtr completing a medical records request to have [facility] send over their EMR for [facility] to update their records. Dtr continued to reiterate just how upset she is that there is poor communication. Dtr inquiring about morphine being ordered, insulin not being ordered and taking the other medication dtr brought in for pt to use (which was approved), as this worker confirmed with charge nurse 01/24, and why oxycodone is not listed as an allergy for pt. Dtr stated she is showing their [facility] medical Sheila, none of that is accurate. SW confirmed all of those are listed on the MAR and allergy list, but referred to nursing to assist further. Dtr stated oh no, if it's there, that's great. But I don't know why I can't see it. SW educated the [facility] medical Sheila is powered by medical records and again, offered to provide dtr with contact information to resolve. Dtr agreed and SW provided. Dtr noted, I'm not trying to complain, but I just really frustrated and trying to make sure nothing happens to my mom because there is such poor communication. SW acknowledged dtr's feelings and agreed to receive resolution, but this worker cannot assist in these noted areas, and referred to appropriate disciplines. Dtr appreciative. SW placed referral to SNFs via [employer]Port. Will continue to follow. Yani Jarrell, NEGRITO HEALTH INSURANCE SPECIALIST
[2024-01-26 16:08] VITALS: BMI 31.4
[2024-01-26 21:11] VITALS: BP 161/50; PULSE 85
[2024-01-26 21:13] VITALS: BP 161/50; PULSE 85
[2024-01-26] MEDS: MELATONIN 10 MG TABLET PO (21:18)
[2024-01-26] MEDS: Tolterodine Tartrate 2 MG CAP.SA PO (21:19)
[2024-01-27] VITALS (7 sets, daily range): BP systolic 111–143; BP diastolic 52–81; PULSE 82–91; RESP 16–18; TEMP 36.6; O2SAT 95–96
[2024-01-27] MEDS: traMADol 50 MG Tablet PO ×3 (05:32→22:07)
[2024-01-27] MEDS: Acetaminophen 500 MG Tablet 1000 MG PO ×3 (05:34→22:10)
[2024-01-27] MEDS: hydrALAZINE 10 MG Tablet PO ×3 (05:34→22:07)
[2024-01-27 05:59] LABS: Absolute Lymphocyte Count 1.02 X10^3/uL (0.83-4.51); Absolute Neutrophil Count 5.9 X10^3/uL (2.0-7.7); Basophil# 0.07 X10^3/uL; Basophil% 0.9 % (0-1); Eosinophil# 0.24 X10^3/uL; Hematocrit 31.2 % (37-47); Hemoglobin 9.4 g/dL (12.0-15.0); Lymphocyte # 1.02 X10^3/ul (0.83-4.51); Lymphocyte % 12.8 % (19-41); Mean Corp Hgb Conc 30.1 g/dL (32-36); Mean Corpuscular Hgb 28.3 pg (27.0-32.0); Mean Platelet Vol. 10.2 fl (6.2-12.0); Monocyte# 0.74 X10^3/uL; Monocyte% 9.3 % (0-10); NRBC Flagged by Analyzer 0 % (0-5); Neutrophil # 5.86 X10^3/uL (2.7-7.7); Neutrophil % 73.5 % (47-70); Platelet Count 587 K/mm3 (150-450); RBC Distribution Width CV 15.6 % (11.6-14.6); RBC Distribution Width SD 53.2 fl (35.1-43.9); Red Blood Count 3.32 M/mm3 (4.2-5.4)
[2024-01-27 06:24] LABS: Anion Gap 5 (5-15); BUN 20 mg/dL (7-18); BUN/Creat Ratio 34.7 RATIO (10-20); Calcium,Total 9.2 mg/dL (8.5-10.1); Chloride 102 mmol/L (98-107); Creatinine, Serum 0.58 mg/dL (0.55-1.02); EST Glomerular Filtration Rate 106 mL/min (>60); Est Glom Filt Rate - Afr Amer 129 mL/min (>60); Estimated Creatinine Clearance 61.88 ml/min; Glucose 154 mg/dL (74-106); Potassium 4.6 mmol/L (3.5-5.1); Sodium Level 137 mmol/L (136-145)
[2024-01-27 06:45] LABS: Bedside Glucose 141 mg/dL (74-106)
[2024-01-27] MEDS: Cholecalciferol (VIT D3) 25 MCG TABLET (1,000 UNITS) 100 MCG PO (08:54)
[2024-01-27] MEDS: Senna/Docusate Sodium 1 Tablet PO ×2 (08:54→22:08)
[2024-01-27] MEDS: Calcitriol 0.25 MCG Capsule 0.5 MCG PO (08:54)
[2024-01-27] MEDS: Multivitamins,Ther W-Minerals Tablet 1 TABLET PO (08:55)
[2024-01-27] MEDS: busPIRone 15 MG TABLET 7.5 MG PO ×2 (08:55→22:08)
[2024-01-27] MEDS: DULoxetine Hcl 60 MG Capsule PO (08:55)
[2024-01-27] MEDS: Ascorbic Acid 500 MG Tablet PO (08:55)
[2024-01-27] MEDS: Calcium Carb/Vitamin D 1 TABLET Tablet 2 TABLET PO (08:55)
[2024-01-27] MEDS: Loratadine 10 MG Tablet PO (08:55)
[2024-01-27] MEDS: Ferrous Sulfate 325 MG Tablet PO (08:55)
[2024-01-27] MEDS: APIXABAN 5 MG TABLET PO ×2 (08:55→22:08)
[2024-01-27] MEDS: Lidocaine 5% Patch 2 PATCH TOPICAL (08:57)
[2024-01-27] MEDS: Menthol/Lanolin/Calamine/Znox 113 GM Tube 1 APPLIC TOPICAL (09:07)
--- NOTE | 2024-01-27 12:41 | NURSING ---
ULTRAM GIVEN AT 1145AM FOR 9/10 PAIN HIP, PT HAD BEEN SITTING IN RECLINER CHAIR AND TRANSFERRED TO BED, PT RESTING IN BED ON BACK, RATES PAIN 8/10 RESTING. NO FACIAL GRIMMACING OR CHANGE IN BEHAVIOR. ASKED FOR RONN DOONES, GIVEN. REFUSED LUNCH TRAY. WILL CONTINUE TO MONITOR. WILL ADMINISTER TYLENOL WHEN DUE.
[2024-01-27] MEDS: MorphINE SOLN 10 MG/0.5 ML PO.SYRINGE SL (13:53)
--- NOTE | 2024-01-27 14:33 | RAD_ITS ---
STUDY: X-RAY - PELVIS AND LEFT HIP REASON FOR EXAM: Female, 83 years old. Post-op TECHNIQUE: 3 views of the pelvis and hip. COMPARISON: Pelvis January 21, 2024 FINDINGS: There is a non-specific bowel gas pattern. Normal visualized soft tissue structures. Normal bilateral iliac wings, sacroiliac joints and visualized sacrum. Normal bilateral superior and inferior pubic rami. Normal pubic symphysis. Normal bilateral ischial tuberosities. Intramedullary johnson and compression screw transfixes a intertrochanteric fracture. RAD/HIP, UNI W/ Pelvis 2-3 Views IMPRESSION: Status post ORIF left hip fracture. Electronically Signed: Bryant Chaudhari MD at 17:23 EDT ,
--- NOTE | 2024-01-27 15:00 | NURSING ---
1430 pt taken to xray via bed, & returned 1445
--- NOTE | 2024-01-27 17:41 | NURSING ---
dr jay texted, will be in tomorrow instead, wants rebekah removed by nursing lucioight. daughter & pt updated.
--- NOTE | 2024-01-27 17:48 | NURSING ---
20 total rebekah removed from 3 incisions to LT hip, well approx. no s/s infection noted, left MIGUEL ANGEL
[2024-01-27] MEDS: MELATONIN 10 MG TABLET PO (22:07)
[2024-01-27] MEDS: Tolterodine Tartrate 2 MG CAP.SA PO (22:08)
[2024-01-28] VITALS (7 sets, daily range): BP systolic 142–147; BP diastolic 52–75; PULSE 83–98; RESP 16–18; TEMP 36; O2SAT 95–97
[2024-01-28] MEDS: traMADol 50 MG Tablet PO ×3 (04:34→18:52)
[2024-01-28] MEDS: Acetaminophen 500 MG Tablet 1000 MG PO ×3 (05:22→21:10)
[2024-01-28] MEDS: hydrALAZINE 10 MG Tablet PO ×3 (05:22→21:03)
[2024-01-28 06:57] LABS: Bedside Glucose 132 mg/dL (74-106)
[2024-01-28] MEDS: Ascorbic Acid 500 MG Tablet PO (09:25)
[2024-01-28] MEDS: Multivitamins,Ther W-Minerals Tablet 1 TABLET PO (09:25)
[2024-01-28] MEDS: Ferrous Sulfate 325 MG Tablet PO (09:25)
[2024-01-28] MEDS: Calcitriol 0.25 MCG Capsule 0.5 MCG PO (09:26)
[2024-01-28] MEDS: APIXABAN 5 MG TABLET PO ×2 (09:26→21:06)
[2024-01-28] MEDS: Lidocaine 5% Patch 2 PATCH TOPICAL (09:26)
[2024-01-28] MEDS: DULoxetine Hcl 60 MG Capsule PO (09:26)
[2024-01-28] MEDS: Fluconazole 100 MG Tablet 200 MG PO (09:27)
[2024-01-28] MEDS: busPIRone 15 MG TABLET 7.5 MG PO ×2 (09:27→21:03)
[2024-01-28] MEDS: Calcium Carb/Vitamin D 1 TABLET Tablet 2 TABLET PO (09:27)
[2024-01-28] MEDS: Cholecalciferol (VIT D3) 25 MCG TABLET (1,000 UNITS) 100 MCG PO (09:28)
[2024-01-28] MEDS: Senna/Docusate Sodium 1 Tablet PO ×2 (09:28→21:07)
[2024-01-28] MEDS: Loratadine 10 MG Tablet PO (09:28)
[2024-01-28] MEDS: Menthol/Lanolin/Calamine/Znox 113 GM Tube 1 APPLIC TOPICAL ×2 (09:28→21:04)
[2024-01-28] MEDS: Clobetasol Propionate 0.05% Cream 1 APPLIC TOPICAL ×2 (09:29→21:09)
--- NOTE | 2024-01-28 11:02 | CASEMGMT ---
Social Work SW walking by pt room when this worker heard pt moaning and yelling. SW entered room, announcing self. Pt is bed, visibly uncomfortable, in pain, fidgety, laying flat, crying. SW inquired about what was wrong. Pt shouted she was in pain and wanting God to take me anytime now. I just want out of the pain and misery. SW inquired about pain medication and pt unsure when she last received her medication. SW to notify nurse and return to bedside. SW notified nurse and she shortly followed this worker into pt's room to administer morphine. SW assisted in offering other interventions such as heat or ice, repositioning, music, and grounding techniques to had her mind and thoughts on something other than the pain. Pt agreed to music and prefers old country music. SW set pt up with CD player and CDs and began playing. SW instructed pt to count backwards until pt became more comfortable from medication. Pt began counting backwards from 50. -- SW returned at a later time to follow up. Pt appeared more comfortable. DIL and visiting. Pt grabbed this workers hand and profusely thanked this worker for music and getting pt the medication. Yani Jarrell, ART GALLERY DIRECTOR PHARMACY CLINICAL COORDINATOR
[2024-01-28] MEDS: MorphINE SOLN 10 MG/0.5 ML PO.SYRINGE SL (11:26)
--- NOTE | 2024-01-28 12:54 | PCM.PN.ORT ---
Subjective Subjective Shelley is 2.5 weeks status post left hip short gamma nailing for comminuted intertrochanteric fracture. She continues to struggle with mobility but has been increasing her ability to walk and is able to walk about 20 feet per her own report. She has significant pain. She also has pain in the distal femur and throughout the leg going up to the lower buttock region on the left side. She has had her rebekah removed and has not had any wound issues. Objective Data Objective Data Vital Signs: Vital Signs Temp Pulse Resp BP Pulse Ox O2 Del Method 98 F 83 18 144/52 H 95 Room Air 01/27/24 08:51 01/28/24 05:22 01/27/24 10:00 01/28/24 05:22 01/27/24 10:00 01/27/24 10:00 Oxygen Delivery Method Room Air Weight: 195 lb 9.6 oz Body Mass Index (BMI) 31.4 Intake & Output: Intake and Output for Last 24 Hours 01/26/24 01/27/24 01/28/24 23:59 23:59 23:59 Intake Total 240 / 240 600 / 600 200 / 200 Output Total 775 / 775 250 / 250 500 / 500 Balance -535 / -535 350 / 350 -300 / -300 Lab / Micro Data 01/27/24 05:16 01/27/24 05:16 Labs: Laboratory Results - last 24 hr 01/28/24 06:20: POC Glucose 132 H Micro: Microbiology 01/27/24 05:40 Nasal Secretion SARS-CoV-2 Antigen (Rapid) - Final 01/19/24 23:22 Urine Catheter - Ding Urine Culture - Final Klebsiella pneumoniae sp pneum 01/20/24 05:30 Nasal Secretion SARS-CoV-2 Antigen (Rapid) - Final 01/13/24 10:50 Nasal Secretion SARS-CoV-2 Antigen (Rapid) - Final Radiography Diagnostic Testing: Radiology Impression Hip/Pelvis X-Ray 01/27/24 14:33 IMPRESSION: Status post ORIF left hip fracture. Electronically Signed: Bryant Chaudhari MD at 17:23 EDT , Physical Exam Narrative Wound healed. [place] were removed. Distal neurovascular exam is intact. Active hip flexion is painful. Passive hip and knee flexion is possible up to 45 degrees but she is unable to hold it in position. Assessment & Plan Assessment/Plan (1) Closed intertrochanteric fracture of left hip: QUALIFIERS: Encounter type: initial encounter Fracture alignment: displaced Qualified Code(s): S72.142A - Displaced intertrochanteric fracture of left femur, initial encounter for closed fracture PLAN: Plan Shelley is 2.5 weeks status post left hip ORIF with gamma nailing. Spoke with daughter on the speaker phone in presence of patient. Discussed need for aggressive physical therapy and mobility exercises. Discussed need for in bed exercises of hip and knee range of motion. Explained to her that she may do partial 50% weightbearing on the left lower extremity if that helps her to walk with lesser pain. Reviewed x-rays done yesterday. Fracture alignment seems intact although may have slight subsidence. I would like her to follow-up in 2 weeks in clinic for x-rays. Patient was in agreement.
--- NOTE | 2024-01-28 16:09 | CASEMGMT ---
Social Work Insurance issued LCD 02/02, DC 02/03. SW spoke with pt at bedside to update, and will also contact dtr to notify. SW explained pt will DC to [facility] for continued care. pt agreeable. SW phoned dtr to update on DC date, explained appeal rights and discuss DC plans. Dtr denied appeal and agreeable to [facility]. SW to coordinate cot transport. Dtr is flying into town and will be present for transfer. Dtr continues to express frustration with [facility] portal showing inaccurate medications, etc, when dtr speaks with nursing and nursing confirms that accurate med list, allergies, etc. Dtr stated she spoke with medical records and could not find a resolution, and requesting if there is another entity to file a grievance to. SW provided contact information of patient advocate to dtr. Dtr appreciative. Dtr also stated she would like pt to no longer have morphine, and has been asking nursing for like a week now to get is discontinued, but it hasn't happened yet. SVITLANA explained this worker witnessed pt in unbearful pain on 01/27, crying, yelling out, wanting God to take her out of her misery, and the other pain medication ordered was not effective. However, shortly after the nurse administered the morphine, pt was relaxed and able to conversate, thus, SW unsure if discontinuing the morphine would be beneficial to the pt. Dtr stated, she just wants it to help her sleep. SW noted that this incident was in the middle of the day. Dtr replied well just give her Tylenol and tell her it's morphine, and it will do the trick. She just wants it to rest. SVITLANA explained nursing is unable to lie to a patient, and reiterated pt appeared to greatly benefit from the medication, as this was also shortly after a therapy session. Dtr stated well fine then, just keep it ordered, and I will take it up with the next place. SVITLANA agreed to have conversation with [facility] to determine if that is the best treatment plan for the pt. SW redirected to planning pt's DC and confirmed this worker will schedule transport for the pt. Dtr requesting to present for transport and she has morning appts with pt's , thus requesting transport for 1400. SW agreed to request that time with [facility]. Dtr appreciative. SW to notify dtr if time is different. SW updated [facility] on DC date and time via [facility]Port. SW phoned [facility] to schedule cot transport for 1400. Completed PASRR. Plan: DC 02/03, [facility], intermediate, private pay Yani Jarrell, NEGRITO HIRSCHW
[2024-01-28] MEDS: Tolterodine Tartrate 2 MG CAP.SA PO (21:05)
[2024-01-28] MEDS: MELATONIN 10 MG TABLET PO (21:07)
[2024-01-29] VITALS (8 sets, daily range): BP systolic 134–153; BP diastolic 58–69; PULSE 88–94; RESP 16–18; TEMP 36.4; O2SAT 93–97
[2024-01-29] MEDS: Calcium Carbonate 500 MG Tablet PO (04:05)
[2024-01-29] MEDS: Acetaminophen 500 MG Tablet 1000 MG PO ×3 (05:38→21:53)
[2024-01-29] MEDS: hydrALAZINE 10 MG Tablet PO ×3 (05:38→21:53)
[2024-01-29] MEDS: traMADol 50 MG Tablet PO (05:41)
[2024-01-29] MEDS: Multivitamins,Ther W-Minerals Tablet 1 TABLET PO (07:52)
[2024-01-29] MEDS: Ferrous Sulfate 325 MG Tablet PO (07:52)
[2024-01-29] MEDS: TIRZEPATIDE 5 MG/0.5 ML SQ (07:52)
[2024-01-29] MEDS: Calcium Carb/Vitamin D 1 TABLET Tablet 2 TABLET PO (07:52)
[2024-01-29] MEDS: busPIRone 15 MG TABLET 7.5 MG PO ×2 (07:52→21:53)
[2024-01-29] MEDS: APIXABAN 5 MG TABLET PO ×2 (07:53→21:54)
[2024-01-29] MEDS: Menthol/Lanolin/Calamine/Znox 113 GM Tube 1 APPLIC TOPICAL ×2 (07:53→21:54)
[2024-01-29] MEDS: Loratadine 10 MG Tablet PO (07:53)
[2024-01-29] MEDS: Calcitriol 0.25 MCG Capsule 0.5 MCG PO (07:53)
[2024-01-29] MEDS: Lidocaine 5% Patch 2 PATCH TOPICAL (07:53)
[2024-01-29] MEDS: DULoxetine Hcl 60 MG Capsule PO (07:53)
[2024-01-29] MEDS: Senna/Docusate Sodium 1 Tablet PO ×2 (07:53→21:54)
[2024-01-29] MEDS: Clobetasol Propionate 0.05% Cream 1 APPLIC TOPICAL ×2 (07:55→21:56)
[2024-01-29] MEDS: Ascorbic Acid 500 MG Tablet PO (07:56)
[2024-01-29] MEDS: Cholecalciferol (VIT D3) 25 MCG TABLET (1,000 UNITS) 100 MCG PO (07:56)
[2024-01-29 10:55] LABS: Bedside Glucose 130 mg/dL (74-106)
[2024-01-29] MEDS: MELATONIN 10 MG TABLET PO (21:54)
[2024-01-29] MEDS: Tolterodine Tartrate 2 MG CAP.SA PO (21:54)
[2024-01-29] MEDS: MorphINE SOLN 10 MG/0.5 ML PO.SYRINGE SL (23:00)
--- NOTE | 2024-01-29 23:14 | NURSING ---
Pt requested pain medication, PRN Tramadol, upon this nurse returning to pt's room and opened medication packaging to administer, she stated her pain was climbing and no longer thought the Tramadol would be adequate and requested PRN Morphine instead. Unable to document waste in omnicell, wasted via [employer]er per protocol with Dottie GUEVARA. Morphine admin per order and k-pad applied per pt request. Pt denies need for further intervention at this time.
[2024-01-30 06:18] LABS: Bedside Glucose 102 mg/dL (74-106)
[2024-01-30 06:34] VITALS: BP 151/71; PULSE 94
[2024-01-30] MEDS: hydrALAZINE 10 MG Tablet PO ×3 (06:34→21:03)
--- NOTE | 2024-01-30 06:46 | NURSING ---
Ding removed per order at this time to begin voiding trials, pt carla. removal well. Pt voiced concerns that she will have difficulty urinating on her own and that she still believes she has a UTI but denies any symptoms such as burning, frequency, or discomfort. This nurse reminded pt to let nursing staff know if she does develop any symptoms, pt was appreciative or reassurance. Denies any further needs at this time.
[2024-01-30] MEDS: Lidocaine 5% Patch 2 PATCH TOPICAL (08:53)
[2024-01-30] MEDS: Acetaminophen 500 MG Tablet 1000 MG PO ×2 (08:56→21:01)
[2024-01-30] MEDS: Calcium Carb/Vitamin D 1 TABLET Tablet 2 TABLET PO (08:57)
[2024-01-30] MEDS: Multivitamins,Ther W-Minerals Tablet 1 TABLET PO (08:58)
[2024-01-30] MEDS: Ferrous Sulfate 325 MG Tablet PO (08:58)
[2024-01-30] MEDS: DULoxetine Hcl 60 MG Capsule PO (09:00)
[2024-01-30] MEDS: Loratadine 10 MG Tablet PO (09:00)
[2024-01-30] MEDS: Calcitriol 0.25 MCG Capsule 0.5 MCG PO (09:01)
[2024-01-30] MEDS: APIXABAN 5 MG TABLET PO ×2 (09:01→21:02)
[2024-01-30] MEDS: busPIRone 15 MG TABLET 7.5 MG PO ×2 (09:02→21:02)
[2024-01-30] MEDS: Senna/Docusate Sodium 1 Tablet PO (09:02)
[2024-01-30] MEDS: Cholecalciferol (VIT D3) 25 MCG TABLET (1,000 UNITS) 100 MCG PO (09:03)
[2024-01-30] MEDS: Ascorbic Acid 500 MG Tablet PO (09:03)
[2024-01-30] MEDS: Clobetasol Propionate 0.05% Cream 1 APPLIC TOPICAL ×2 (09:09→21:02)
[2024-01-30] MEDS: traMADol 50 MG Tablet PO ×2 (13:24→20:59)
[2024-01-30 13:25] VITALS: BP 122/59; PULSE 95
[2024-01-30 16:00] VITALS: BP 122/59; PULSE 95; RESP 16; TEMP 36.3; O2SAT 96
[2024-01-30] MEDS: MorphINE SOLN 10 MG/0.5 ML PO.SYRINGE SL (18:47)
[2024-01-30] MEDS: MELATONIN 10 MG TABLET PO (21:00)
[2024-01-30] MEDS: Tolterodine Tartrate 2 MG CAP.SA PO (21:02)
[2024-01-30 21:03] VITALS: BP 122/62; PULSE 96
[2024-01-30 21:30] VITALS: PULSE 96; O2SAT 94
[2024-01-31 05:59] VITALS: BP 153/61; PULSE 87
[2024-01-31] MEDS: hydrALAZINE 10 MG Tablet PO ×3 (05:59→19:37)
[2024-01-31] MEDS: Acetaminophen 500 MG Tablet 1000 MG PO (06:00)
[2024-01-31] MEDS: traMADol 50 MG Tablet PO ×2 (06:00→12:13)
[2024-01-31 07:12] LABS: Bedside Glucose 120 mg/dL (74-106)
[2024-01-31 07:32] VITALS: BP 153/61; PULSE 87
[2024-01-31] MEDS: Ferrous Sulfate 325 MG Tablet PO (08:53)
[2024-01-31] MEDS: Lidocaine 5% Patch 2 PATCH TOPICAL (08:53)
[2024-01-31] MEDS: Calcium Carb/Vitamin D 1 TABLET Tablet 2 TABLET PO (08:53)
[2024-01-31] MEDS: Multivitamins,Ther W-Minerals Tablet 1 TABLET PO (08:53)
[2024-01-31] MEDS: Cholecalciferol (VIT D3) 25 MCG TABLET (1,000 UNITS) 100 MCG PO (08:54)
[2024-01-31] MEDS: DULoxetine Hcl 60 MG Capsule PO (08:54)
[2024-01-31] MEDS: Ascorbic Acid 500 MG Tablet PO (08:54)
[2024-01-31] MEDS: Loratadine 10 MG Tablet PO (08:54)
[2024-01-31] MEDS: APIXABAN 5 MG TABLET PO ×2 (08:54→19:39)
[2024-01-31] MEDS: Fluconazole 100 MG Tablet 200 MG PO (08:55)
[2024-01-31] MEDS: Calcitriol 0.25 MCG Capsule 0.5 MCG PO (08:55)
[2024-01-31] MEDS: busPIRone 15 MG TABLET 7.5 MG PO ×2 (08:56→19:37)
[2024-01-31] MEDS: Clobetasol Propionate 0.05% Cream 1 APPLIC TOPICAL ×2 (08:57→19:40)
[2024-01-31 13:37] VITALS: PULSE 87
[2024-01-31 14:34] VITALS: BP 138/61; PULSE 116; RESP 15; TEMP 36.2; O2SAT 95
[2024-01-31 19:37] VITALS: BP 124/58; PULSE 94
[2024-01-31] MEDS: Menthol/Lanolin/Calamine/Znox 113 GM Tube 1 APPLIC TOPICAL (19:37)
[2024-01-31] MEDS: Tolterodine Tartrate 2 MG CAP.SA PO (19:39)
[2024-01-31] MEDS: morphine (oral solution) 10MG/0.5ML Syringe 10 MG SL (21:47)
[2024-01-31] MEDS: MELATONIN 10 MG TABLET PO (21:47)
[2024-02-01] MEDS: traMADol 50 MG Tablet PO ×2 (04:19→12:40)
[2024-02-01 05:30] VITALS: BP 150/77; PULSE 90
[2024-02-01] MEDS: hydrALAZINE 10 MG Tablet PO ×3 (05:30→21:38)
[2024-02-01 06:29] LABS: Bedside Glucose 139 mg/dL (74-106)
[2024-02-01] MEDS: morphine (oral solution) 10MG/0.5ML Syringe 10 MG SL ×2 (09:31→21:43)
[2024-02-01] MEDS: Cholecalciferol (VIT D3) 25 MCG TABLET (1,000 UNITS) 100 MCG PO (09:35)
[2024-02-01] MEDS: Multivitamins,Ther W-Minerals Tablet 1 TABLET PO (09:35)
[2024-02-01] MEDS: Calcium Carb/Vitamin D 1 TABLET Tablet 2 TABLET PO (09:35)
[2024-02-01] MEDS: Lidocaine 5% Patch 2 PATCH TOPICAL (09:35)
[2024-02-01] MEDS: Ferrous Sulfate 325 MG Tablet PO (09:36)
[2024-02-01] MEDS: APIXABAN 5 MG TABLET PO ×2 (09:36→21:41)
[2024-02-01] MEDS: DULoxetine Hcl 60 MG Capsule PO (09:36)
[2024-02-01] MEDS: Calcitriol 0.25 MCG Capsule 0.5 MCG PO (09:36)
[2024-02-01] MEDS: Ascorbic Acid 500 MG Tablet PO (09:36)
[2024-02-01] MEDS: busPIRone 15 MG TABLET 7.5 MG PO ×2 (09:36→21:37)
[2024-02-01] MEDS: Loratadine 10 MG Tablet PO (09:36)
[2024-02-01] MEDS: Menthol/Lanolin/Calamine/Znox 113 GM Tube 1 APPLIC TOPICAL (09:39)
[2024-02-01] MEDS: Clobetasol Propionate 0.05% Cream 1 APPLIC TOPICAL ×2 (09:43→21:46)
[2024-02-01 11:28] VITALS: BMI 30.7
[2024-02-01] MEDS: Calcium Carbonate 500 MG Tablet PO (12:37)
[2024-02-01 12:42] VITALS: BP 122/48; PULSE 96
[2024-02-01 12:43] VITALS: RESP 17; TEMP 36.1; O2SAT 96
--- NOTE | 2024-02-01 20:58 | DS.PCM_ITS ---
Providers Date of Admission: 01/12/24 Primary Care Physician: Dr. Aria Helms MD Reason For Visit: CLOSED INTERTROCHANTERIC LEFT HIP FRACTURE Diagnosis Discharge Diagnosis (1) Closed intertrochanteric fracture of left hip: Status: Resolved Code(s): S72.142A - Displaced intertrochanteric fracture of left femur, initial encounter for closed fracture Qualifiers: Encounter type: initial encounter Fracture alignment: displaced Q ualified Code(s): S72.142A - Displaced intertrochanteric fracture of left femur, initial encounter for closed fracture Plan 83 year old female with below past medical history hospitalized for left hip fracture, underwent left femur cephalomedullary nail 01/11/[address] Neely, admitted to TCU with debility, here for rehabilitation, strengthening, prior to discharge home with . * Debility - PT/OT. * Pain - Tylenol 1000mg q8, Oxycodone 5mg q4. * Bowel - senna/colace 2 tablets bid, Magnesium citrate 300ml po daily prn * Adult immunization - Administer pneumonia vaccine, covid vaccine, flu vaccine as appropriate. * DVT prophylaxis - on Eliquis. * Pulmonary embolism - Eliquis 10mg bid thru 01/18/2024, then 5mg bid. * Vitamin C deficiency - Vitamin C 500mg daily. * Hyperparathyroidism - Calcitriol 0.5mcg daily. * Calcium deficiency - Calcium D 2 tablets daily. * Vitamin D deficiency - D3 100mcg daily. * Vitamin B12 deficiency - B12 1000mg im q30 days. * Pruritus - Benadryl 25mg q6 prn, per patient request, [employer] drug. * Depression - Duloxetine 40mg daily, stable chronic assisted use, GDR not recommended. * Iron deficiency anemia - Ferrous sulfate 325mg daily. * Yeast vaginitis - Fluconazole 200mg mwf. * Allergic rhinitis - Loratadine 10mg daily. * Insomnia - Melatonin 3mg qhs. * Nutrition - MVI 1 tablet daily. * UTI - Macrobid 100mg bid 7 days. * Diabetes Mellitus II - Mounjaro 5mcg sc qweek. * Overactive bladder - Tolterodine 2mg qhs. Medications at Discharge Home Medications calcitriol 0.5 mcg capsule 0.5 mcg PO DAILY Supplement 03/04/15 ascorbic acid (vitamin C) 500 mg tablet 500 mg PO DAILY Supplement 03/31/19 calcium carbonate 600 mg-vitamin D3 5 mcg (200 unit) tablet 2 tab PO DAILY Supplement 03/31/19 cyanocobalamin (vitamin B-12) 1,000 mcg/mL injection solution 1,000 mcg IM Q30D Supplement 03/31/19 multivitamin with minerals 1 ea PO DAILY Supplement 03/31/19 oxybutynin chloride 10 mg tablet,extended release 24 hr 10 mg PO QHS overactive bladder 03/31/19 apixaban 5 mg tablet 5 mg PO BID Anticoagulant #74 tabs 08/27/20 cholecalciferol (vitamin D3) 50 mcg (2,000 unit) capsule 100 mcg PO DAILY Supplement 01/10/24 duloxetine 20 mg capsule,delayed release (Cymbalta) 40 mg PO DAILY Depression 01/10/24 ferrous sulfate 325 mg (65 mg iron) tablet (Iron (ferrous sulfate)) 325 mg PO DAILY Supplement 01/10/24 fluconazole 200 mg tablet (Diflucan) 200 mg PO MOWEFR Antifungal 01/10/24 loratadine 10 mg tablet (Claritin) 10 mg PO DAILY Allergies 01/10/24 tirzepatide 5 mg/0.5 mL subcutaneous pen injector (Mounjaro) 5 mg subcut QWEEK Diabetes 01/10/24 acetaminophen 500 mg tablet 1,000 mg (2 x 500 mg) PO Q8 PRN Pain 1-10 Or Fever #0 tabs 02/01/24 buspirone 15 mg tablet 7.5 mg (1/2 x 15 mg) PO BID #0 tabs 02/01/24 calcium carbonate 500 mg (2.5 x 200 mg calcium (500 mg)) PO Q4H PRN PRN Indigestion #0 tabs 02/01/24 clobetasol 0.05 % topical cream 1 applic topical BID #0 grams 02/01/24 hydralazine 10 mg tablet 10 mg PO TID #0 tabs 02/01/24 lidocaine 5 % topical patch 2 patch topical DAILY #0 ea 02/01/24 magnesium citrate 300 ml PO DAILY PRN Constipation #0 mL 02/01/24 melatonin 10 mg sublingual tablet 10 mg PO QHS #0 tabs 02/01/24 menthol 0.44 %-zinc oxide 20.6 % topical ointment (Calmoseptine) 1 applic topical BID #0 grams 02/01/24 morphine concentrate 10 mg/0.5 mL oral syringe (FOR ORAL USE ONLY) 10 mg (0.5 mL) sublingual Q2H PRN PRN Pain Score 6-10 3 days #18 mL 02/01/24 sennosides 8.6 mg-docusate sodium 50 mg tablet (Stimulant Laxative Plus) 1 tab PO BID #0 tabs 02/01/24 tramadol 50 mg tablet 50 mg PO Q6H PRN PRN Pain Score 1-5 Or Pre Pt/Ot 3 days #12 tabs 02/01/24 Hospital Course Operations - (See below.) Procedures None Summary of Care Provided Minutes Spent on Discharge: 35 Hospital Course: 83 year old female with below past medical history hospitalized for left hip fracture, underwent left femur cephalomedullary nail 01/11/[address] Neely, admitted to TCU with debility, here for rehabilitation, strengthening, prior to discharge home with . Discharge to [facility] 02/04/2024, intermediate, private pay. Physical Exam Const alert General Appearance: cooperative HEENT normocephalic Eyes PERRL and EOMs intact bilaterally Neck supple, no JVD and no carotid bruits Resp normal respiratory effort, normal air movement and clear to auscultation bilaterally Cardio regular rate and regular rhythm GI normal to inspection, nondistended, normoactive bowel sounds, non-tender and non-distended Extremity normal capillary refill General Extremity: Negative for edema Skin no rashes or lesions noted General Skin Exam: no breakdown Psych affect normal Appearance: appropriate Weight / BMI Weight Weight: 86.818 kg Body Mass Index (BMI) 30.7 ABG / Lab / Microbiology Data 01/27/24 05:16 01/27/24 05:16 Laboratory: Laboratory Results - last 24 hr 02/01/24 06:02: POC Glucose 139 H Microbiology: Microbiology 01/27/24 05:40 Nasal Secretion SARS-CoV-2 Antigen (Rapid) - Final 01/19/24 23:22 Urine Catheter - Dign Urine Culture - Final Klebsiella pneumoniae sp pneum 01/20/24 05:30 Nasal Secretion SARS-CoV-2 Antigen (Rapid) - Final 01/13/24 10:50 Nasal Secretion SARS-CoV-2 Antigen (Rapid) - Final D/C Instructions Discharge Diet: No restrictions Discharge Activity: Return to Normal Activity, May Shower and Use Walker Weight Bearing Status: Weight bearing as tolerated Call your doctor if you observe: Fever of 101 or Higher, Inability to urinate, Inability to have a bowel movement, Shortness of breath, Dizziness, Fainting spells, Swelling in the ankles, Chest pain and Uncontrolled pain Additional Instructions: Discharge to [facility] 02/04/2024, intermediate, private pay. Please Follow Up With: Dr. Neely When: 02/11/2024. Meaningful Use Info Meaningful Use Meaningful Use Diagnoses (Choose all that apply): None applicable Ischemic Stroke Statin Dosing Therapy Reference: STATIN DOSE THERAPY REFERENCE: * Patients > 75 years receive moderate or high dose statin therapy. * Patients 75 years or YOUNGER should receive HIGH intensity statin dose unless contraindicated. You will be required to document reason for non-treatment if statin daily dose does not meet guidelines. HIGH DOSE STATIN THERAPY DAILY Atorvastatin > than or = to 40 mg Rosuvastatin > than or = to 20 mg Amlodipine + Atorvastatin > than or = to 2.5/40 mg Ezetimibe + Simvastatin 10/80 mg Simvastatin 80mg Discharge Plan Admission Admit Date/Time: 01/12/24 15:56 Primary Reason for Your Visit: Debility. Attending Provider: Allan Rodriguez Chi Primary Care Provider: Aria Helms Instructions Additional Instructions / Restrictions: Discharge to [facility] 02/04/2024, intermediate, private pay. Discharge Orders/Prescriptions Prescriptions: New acetaminophen 500 mg Tablet 1,000 mg PO Q8 PRN (Reason: Pain 1-10 Or Fever) Qty: 0 0RF calcium carbonate 200 mg calcium (500 mg) Tablet,Chewable 500 mg PO Q4H PRN PRN (Reason: Indigestion) Qty: 0 0RF buspirone 15 mg Tablet 7.5 mg PO BID Qty: 0 0RF hydralazine 10 mg Tablet 10 mg PO TID Qty: 0 0RF clobetasol 0.05 % Cream 1 applic topical BID Qty: 0 0RF Protocol: *Topical Application Instructions APPLICATION INSTRUCTIONS: Vaginal. lidocaine 5 % Adhesive Patch,Medicated 2 patch topical DAILY Qty: 0 0RF Protocol: *Topical Application Instructions APPLICATION INSTRUCTIONS: Left hip. magnesium citrate Solution 300 ml PO DAILY PRN (Reason: Constipation) Qty: 0 0RF menthol-zinc oxide [Calmoseptine] 0.44-20.6 % Ointment 1 applic topical BID Qty: 0 0RF Protocol: *Topical Application Instructions APPLICATION INSTRUCTIONS: jalil buttocks melatonin 10 mg Tablet, Sublingual 10 mg PO QHS Qty: 0 0RF sennosides-docusate sodium [Stimulant Laxative Plus] 8.6-50 mg Tablet 1 tab PO BID Qty: 0 0RF morphine concentrate 10 mg/0.5 mL Syringe 10 mg sublingual Q2H PRN PRN (Reason: Pain Score 6-10) 3 Days Qty: 18 0RF tramadol 50 mg Tablet 50 mg PO Q6H PRN PRN (Reason: Pain Score 1-5 Or Pre Pt/Ot) 3 Days Qty: 12 0RF Continued calcitriol 0.5 MCG capsule 0.5 mcg PO DAILY Patient Comments: oxybutynin chloride 10 MG tablet extended release 24hr 10 mg PO QHS calcium carbonate-vitamin D3 1 EACH tablet 2 tab PO DAILY ascorbic acid (vitamin C) 500 MG tablet 500 mg PO DAILY cyanocobalamin (vitamin B-12) 1,000 MCG/ML solution 1,000 mcg IM Q30D multivitamin with minerals 1 EACH tablet 1 ea PO DAILY apixaban 5 MG tablet 5 mg PO BID Qty: 74 0RF Rx Instructions: 10 mg twice a day for the first week. Then 5 mg twice a day. loratadine [Claritin] 10 mg tablet 10 mg PO DAILY duloxetine [Cymbalta] 20 mg capsule,delayed release(DR/EC) 40 mg PO DAILY fluconazole [Diflucan] 200 mg tablet 200 mg PO MOWEFR ferrous sulfate [Iron (ferrous sulfate)] 325 mg (65 mg iron) tablet 325 mg PO DAILY Mounjaro 5 mg/0.5 mL pen injector 5 mg subcut QWEEK Rx Instructions: Give every Wednesday. Patient to provide own medication. cholecalciferol (vitamin D3) 50 mcg (2,000 unit) capsule 100 mcg PO DAILY Discontinued biotin 2,500 MCG capsule 2,500 mcg PO DAILY melatonin 3 mg capsule 3 mg PO QHS nitrofurantoin monohyd/m-cryst 100 mg capsule 1 cap PO BID acetaminophen 500 mg Tablet 500 mg PO Q6 PRN (Reason: Pain 1-5/10 Or Fever) Qty: 0 0RF insulin lispro [Humalog KwikPen Insulin] 100 unit/mL Insulin Pen See Protocol subcut ACHS Qty: 0 0RF Protocol: 1. Sliding Scale Insulin Low Dosing Condition: 150-224 mg/dl = 1 unit Condition: 225-299 mg/dl = 2 units Condition: 300-374 mg/dl = 3 units Condition: 375-449 mg/dl = 4 units Condition: Greater than 449 call physician Protocol Text: Suggested for: - Patients on Total Daily Insulin Dose of 15-27 units - Thin, elderly, renal patients LOW DOSING ALGORITHM oxycodone 5 mg Tablet 5 mg PO Q4H PRN PRN (Reason: Pain Score 4-10) 3 Days Qty: 12 0RF Referrals / Follow Up: Aria Helms MD [Primary Care Provider] - Disposition Disposition (needs filled in before D/C Order can be placed): NonSkilled NH/Intermed Care
--- NOTE | 2024-02-01 21:06 | TREXTCAR_ITS ---
Diet Diet Order/Speech Therapy: 01/12/24 16:37 Diet: Consistent Carb - Calorie Controlled Food consistency:: Regular Liquid Consistency:: Regular/Thin How many daily calories?: 2000 calorie Routine Orders/Code Status Code Status: DNRCC-A (No intubation.) Wound(s) Left hip proximal incision: Wound Type: Surgical Incision Dressing Change: ABD Left hip distal surgical incision: Wound Type: Surgical Incision Dressing Change: Dry Sterile Dressing Therapies Weight Bearing: Weight bearing as tolerated Extremity Affected:: Bilateral Lower Physical Therapy: Eval and Treat Occupational Therapy: Eval and Treat Problem/Diagnosis (1) Closed intertrochanteric fracture of left hip: Status: Resolved Code(s): S72.142A - Displaced intertrochanteric fracture of left femur, initial encounter for closed fracture Plan 83 year old female with below past medical history hospitalized for left hip fracture, underwent left femur cephalomedullary nail 01/11/[address] Neely, admitted to TCU with debility, here for rehabilitation, strengthening, prior to discharge home with . * Debility - PT/OT. * Pain - Tylenol 1000mg q8, Oxycodone 5mg q4. * Bowel - senna/colace 2 tablets bid, Magnesium citrate 300ml po daily prn * Adult immunization - Administer pneumonia vaccine, covid vaccine, flu vaccine as appropriate. * DVT prophylaxis - on Eliquis. * Pulmonary embolism - Eliquis 10mg bid thru 01/18/2024, then 5mg bid. * Vitamin C deficiency - Vitamin C 500mg daily. * Hyperparathyroidism - Calcitriol 0.5mcg daily. * Calcium deficiency - Calcium D 2 tablets daily. * Vitamin D deficiency - D3 100mcg daily. * Vitamin B12 deficiency - B12 1000mg im q30 days. * Pruritus - Benadryl 25mg q6 prn, per patient request, [employer] drug. * Depression - Duloxetine 40mg daily, stable chronic terminologist use, GDR not recommended. * Iron deficiency anemia - Ferrous sulfate 325mg daily. * Yeast vaginitis - Fluconazole 200mg mwf. * Allergic rhinitis - Loratadine 10mg daily. * Insomnia - Melatonin 3mg qhs. * Nutrition - MVI 1 tablet daily. * UTI - Macrobid 100mg bid 7 days. * Diabetes Mellitus II - Mounjaro 5mcg sc qweek. * Overactive bladder - Tolterodine 2mg qhs. Allergies/Procedures Done in Hospital Allergies adhesive Allergy (Verified 01/10/24 21:35) Rash aspirin (ASA) Allergy (Verified 01/10/24 21:35) Anaphylaxis atorvastatin (From Lipitor) Allergy (Verified 01/10/24 21:35) Unknown Dressing: Non-Medicated Allergy (Verified 01/10/24 21:35) Rash duoderm exenatide (From Byetta) Allergy (Verified 01/10/24 21:35) Unknown ezetimibe (From Zetia) Allergy (Verified 01/10/24 21:35) Rash irbesartan (From Avapro) Allergy (Verified 01/10/24 21:35) Swelling niacin Allergy (Verified 01/10/24 21:35) Unknown Penicillins Allergy (Verified 01/10/24 21:35) Rash pravastatin Allergy (Verified 01/10/24 21:35) Rash rosuvastatin (From Crestor) Allergy (Verified 01/10/24 21:35) Unknown simvastatin (From Zocor) Allergy (Verified 01/10/24 21:35) Rash Cftdryw-YIC-TlA Reductase Inhibitor (Rhilmot-Zwm-Oiq Reductase Inhibitor) Allergy (Verified 01/10/24 21:35) Other oxycodone Adverse Reaction (Intermediate, Verified 01/26/24 16:10) confusion per family hydrocodone Adverse Reaction (Unknown, Verified 01/13/24 16:02) Itching erythromycin base Adverse Reaction (Verified 01/10/24 21:35) Other etodolac Adverse Reaction (Verified 01/10/24 21:35) Unknown metformin Adverse Reaction (Verified 01/10/24 21:35) Diarrhea NSAIDS (Non-Steroidal Anti-Inflamma Adverse Reaction (Verified 01/10/24 21:35) Other Sulfa (Sulfonamide Antibiotics) Adverse Reaction (Verified 01/10/24 21:35) Rash Procedures: None Type of Care/Length of Stay Estimated LOS: Convalescent Care Less Than 30 days Type of Care Needed: Intermediate Rehab Potential: Poor Prognosis: Fair Additional Orders/Day of Discharge Additional Orders: part B therapies Day of Discharge: 02/04/24 Dietary and Speech Recommendations Dietitian Recommendations/Changes: Continue consistent carb: 2000 calorie controlled diet. Will monitor weight, as available. Follow Up Care Please Follow Up With: Dr. Neely When: In 2 weeks Discharge Plan Admission Admit Date/Time: 01/12/24 15:56 Primary Reason for Your Visit: Debility. Attending Provider: Allan Rodriguez Chi Primary Care Provider: Aria Helms Instructions Additional Instructions / Restrictions: Discharge to [facility] 02/04/2024, intermediate, private pay. Discharge Orders/Prescriptions Prescriptions: New acetaminophen 500 mg Tablet 1,000 mg PO Q8 PRN (Reason: Pain 1-10 Or Fever) Qty: 0 0RF calcium carbonate 200 mg calcium (500 mg) Tablet,Chewable 500 mg PO Q4H PRN PRN (Reason: Indigestion) Qty: 0 0RF buspirone 15 mg Tablet 7.5 mg PO BID Qty: 0 0RF hydralazine 10 mg Tablet 10 mg PO TID Qty: 0 0RF clobetasol 0.05 % Cream 1 applic topical BID Qty: 0 0RF Protocol: *Topical Application Instructions APPLICATION INSTRUCTIONS: Vaginal. lidocaine 5 % Adhesive Patch,Medicated 2 patch topical DAILY Qty: 0 0RF Protocol: *Topical Application Instructions APPLICATION INSTRUCTIONS: Left hip. magnesium citrate Solution 300 ml PO DAILY PRN (Reason: Constipation) Qty: 0 0RF menthol-zinc oxide [Calmoseptine] 0.44-20.6 % Ointment 1 applic topical BID Qty: 0 0RF Protocol: *Topical Application Instructions APPLICATION INSTRUCTIONS: jalil buttocks melatonin 10 mg Tablet, Sublingual 10 mg PO QHS Qty: 0 0RF sennosides-docusate sodium [Stimulant Laxative Plus] 8.6-50 mg Tablet 1 tab PO BID Qty: 0 0RF morphine concentrate 10 mg/0.5 mL Syringe 10 mg sublingual Q2H PRN PRN (Reason: Pain Score 6-10) 3 Days Qty: 18 0RF tramadol 50 mg Tablet 50 mg PO Q6H PRN PRN (Reason: Pain Score 1-5 Or Pre Pt/Ot) 3 Days Qty: 12 0RF Continued calcitriol 0.5 MCG capsule 0.5 mcg PO DAILY Patient Comments: oxybutynin chloride 10 MG tablet extended release 24hr 10 mg PO QHS calcium carbonate-vitamin D3 1 EACH tablet 2 tab PO DAILY ascorbic acid (vitamin C) 500 MG tablet 500 mg PO DAILY cyanocobalamin (vitamin B-12) 1,000 MCG/ML solution 1,000 mcg IM Q30D multivitamin with minerals 1 EACH tablet 1 ea PO DAILY apixaban 5 MG tablet 5 mg PO BID Qty: 74 0RF Rx Instructions: 10 mg twice a day for the first week. Then 5 mg twice a day. loratadine [Claritin] 10 mg tablet 10 mg PO DAILY duloxetine [Cymbalta] 20 mg capsule,delayed release(DR/EC) 40 mg PO DAILY fluconazole [Diflucan] 200 mg tablet 200 mg PO MOWEFR ferrous sulfate [Iron (ferrous sulfate)] 325 mg (65 mg iron) tablet 325 mg PO DAILY Mounjaro 5 mg/0.5 mL pen injector 5 mg subcut QWEEK Rx Instructions: Give every Wednesday. Patient to provide own medication. cholecalciferol (vitamin D3) 50 mcg (2,000 unit) capsule 100 mcg PO DAILY Discontinued biotin 2,500 MCG capsule 2,500 mcg PO DAILY melatonin 3 mg capsule 3 mg PO QHS nitrofurantoin monohyd/m-cryst 100 mg capsule 1 cap PO BID acetaminophen 500 mg Tablet 500 mg PO Q6 PRN (Reason: Pain 1-5/10 Or Fever) Qty: 0 0RF insulin lispro [Humalog KwikPen Insulin] 100 unit/mL Insulin Pen See Protocol subcut ACHS Qty: 0 0RF Protocol: 1. Sliding Scale Insulin Low Dosing Condition: 150-224 mg/dl = 1 unit Condition: 225-299 mg/dl = 2 units Condition: 300-374 mg/dl = 3 units Condition: 375-449 mg/dl = 4 units Condition: Greater than 449 call physician Protocol Text: Suggested for: - Patients on Total Daily Insulin Dose of 15-27 units - Thin, elderly, renal patients LOW DOSING ALGORITHM oxycodone 5 mg Tablet 5 mg PO Q4H PRN PRN (Reason: Pain Score 4-10) 3 Days Qty: 12 0RF Referrals / Follow Up: Aria Helms MD [Primary Care Provider] - Disposition Disposition (needs filled in before D/C Order can be placed): NonSkilled NH/Intermed Care (1) Closed intertrochanteric fracture of left hip Qualifiers: Encounter type: initial encounter Fracture alignment: displaced Qualified Code(s): S72.142A - Displaced intertrochanteric fracture of left femur, initial encounter for closed fracture
[2024-02-01] MEDS: MELATONIN 10 MG TABLET PO (21:37)
[2024-02-01 21:38] VITALS: BP 140/70; PULSE 60
[2024-02-01] MEDS: Tolterodine Tartrate 2 MG CAP.SA PO (21:39)
[2024-02-02 04:22] VITALS: BP 114/49; PULSE 88
[2024-02-02] MEDS: hydrALAZINE 10 MG Tablet PO ×3 (04:22→21:04)
[2024-02-02 04:44] LABS: Bedside Glucose 98 mg/dL (74-106)
[2024-02-02 09:47] VITALS: BP 118/97; PULSE 98; RESP 16; TEMP 35.7; O2SAT 99
[2024-02-02] MEDS: busPIRone 15 MG TABLET 7.5 MG PO ×2 (09:49→21:04)
[2024-02-02] MEDS: traMADol 50 MG Tablet PO (09:49)
[2024-02-02] MEDS: APIXABAN 5 MG TABLET PO ×2 (09:50→21:06)
[2024-02-02] MEDS: Multivitamins,Ther W-Minerals Tablet 1 TABLET PO (09:50)
[2024-02-02] MEDS: Ferrous Sulfate 325 MG Tablet PO (09:50)
[2024-02-02] MEDS: Ascorbic Acid 500 MG Tablet PO (09:50)
[2024-02-02] MEDS: Cholecalciferol (VIT D3) 25 MCG TABLET (1,000 UNITS) 100 MCG PO (09:51)
[2024-02-02] MEDS: Calcium Carb/Vitamin D 1 TABLET Tablet 2 TABLET PO (09:51)
[2024-02-02] MEDS: DULoxetine Hcl 60 MG Capsule PO (09:51)
[2024-02-02] MEDS: Calcitriol 0.25 MCG Capsule 0.5 MCG PO (09:51)
[2024-02-02] MEDS: Fluconazole 100 MG Tablet 200 MG PO (09:52)
[2024-02-02] MEDS: Lidocaine 5% Patch 2 PATCH TOPICAL (09:52)
[2024-02-02] MEDS: Loratadine 10 MG Tablet PO (09:53)
[2024-02-02] MEDS: Senna/Docusate Sodium 1 Tablet PO ×2 (09:53→21:07)
[2024-02-02] MEDS: Clobetasol Propionate 0.05% Cream 1 APPLIC TOPICAL ×2 (09:54→21:07)
--- NOTE | 2024-02-02 11:14 | NURSING ---
pt had shower this AM with OT, after getting back into bed pt mentioned I can't wait to leave here so I can just lay in bed all day Educated pt on the importance of getting up and moving to keep organs/lungs/joints healthy. pt can be very anxious with transfers and needs talked down and encouraged to keep going. She verbalizes that she does let the anxiety take over. pt resting in bed eyes closed, resp even & unlabored, call light in reach. ultram effective. did not awaken.
[2024-02-02 13:30] VITALS: BP 133/66; PULSE 84
[2024-02-02 20:00] VITALS: PULSE 90; RESP 16; O2SAT 96
[2024-02-02 21:04] VITALS: BP 125/65; PULSE 90
[2024-02-02] MEDS: MELATONIN 10 MG TABLET PO (21:06)
[2024-02-02] MEDS: Tolterodine Tartrate 2 MG CAP.SA PO (21:06)
[2024-02-02 21:12] VITALS: BP 125/65; PULSE 90
[2024-02-02] MEDS: morphine (oral solution) 10MG/0.5ML Syringe 10 MG SL (21:16)
[2024-02-03] VITALS (7 sets, daily range): BP systolic 97–142; BP diastolic 57–69; PULSE 86–98; RESP 16–18; TEMP 36.9; O2SAT 97–98
[2024-02-03 05:57] LABS: Absolute Lymphocyte Count 1.43 X10^3/uL (0.83-4.51); Absolute Neutrophil Count 4.3 X10^3/uL (2.0-7.7); Basophil# 0.05 X10^3/uL; Basophil% 0.7 % (0-1); Eosinophil# 0.27 X10^3/uL; Hematocrit 32.4 % (37-47); Hemoglobin 9.8 g/dL (12.0-15.0); Lymphocyte # 1.43 X10^3/ul (0.83-4.51); Lymphocyte % 21.1 % (19-41); Mean Corp Hgb Conc 30.2 g/dL (32-36); Mean Corpuscular Hgb 28.5 pg (27.0-32.0); Mean Corpuscular Volume 94.2 fL (81-99); Mean Platelet Vol. 10.2 fl (6.2-12.0); Monocyte# 0.71 X10^3/uL; Monocyte% 10.5 % (0-10); NRBC Flagged by Analyzer 0 % (0-5); Neutrophil % 63.4 % (47-70); Platelet Count 399 K/mm3 (150-450); RBC Distribution Width CV 15.7 % (11.6-14.6); RBC Distribution Width SD 53.8 fl (35.1-43.9); Red Blood Count 3.44 M/mm3 (4.2-5.4); White Blood Count 6.8 K/mm3 (4.4-11.0)
[2024-02-03 06:27] LABS: Anion Gap 4 (5-15); BUN 17 mg/dL (7-18); Calcium,Total 9.1 mg/dL (8.5-10.1); Chloride 105 mmol/L (98-107); Creatinine, Serum 0.61 mg/dL (0.55-1.02); EST Glomerular Filtration Rate 100 mL/min (>60); Est Glom Filt Rate - Afr Amer 122 mL/min (>60); Estimated Creatinine Clearance 61.21 ml/min; Glucose 135 mg/dL (74-106); Potassium 3.9 mmol/L (3.5-5.1); Sodium Level 137 mmol/L (136-145)
[2024-02-03] MEDS: hydrALAZINE 10 MG Tablet PO ×3 (06:27→21:02)
[2024-02-03 06:37] LABS: Bedside Glucose 150 mg/dL (74-106)
[2024-02-03] MEDS: Lidocaine 5% Patch 2 PATCH TOPICAL (08:56)
[2024-02-03] MEDS: Ferrous Sulfate 325 MG Tablet PO (08:57)
[2024-02-03] MEDS: Calcitriol 0.25 MCG Capsule 0.5 MCG PO (08:57)
[2024-02-03] MEDS: Multivitamins,Ther W-Minerals Tablet 1 TABLET PO (08:57)
[2024-02-03] MEDS: Calcium Carb/Vitamin D 1 TABLET Tablet 2 TABLET PO (08:58)
[2024-02-03] MEDS: busPIRone 15 MG TABLET 7.5 MG PO ×2 (08:58→21:01)
[2024-02-03] MEDS: DULoxetine Hcl 60 MG Capsule PO (08:59)
[2024-02-03] MEDS: Loratadine 10 MG Tablet PO (08:59)
[2024-02-03] MEDS: APIXABAN 5 MG TABLET PO ×2 (09:00→21:03)
[2024-02-03] MEDS: Cholecalciferol (VIT D3) 25 MCG TABLET (1,000 UNITS) 100 MCG PO (09:01)
[2024-02-03] MEDS: Senna/Docusate Sodium 1 Tablet PO ×2 (09:01→21:03)
[2024-02-03] MEDS: Ascorbic Acid 500 MG Tablet PO (09:01)
[2024-02-03] MEDS: Clobetasol Propionate 0.05% Cream 1 APPLIC TOPICAL ×2 (09:03→21:04)
[2024-02-03] MEDS: traMADol 50 MG Tablet PO (09:20)
[2024-02-03] MEDS: Tolterodine Tartrate 2 MG CAP.SA PO (21:02)
[2024-02-03] MEDS: MELATONIN 10 MG TABLET PO (21:03)
[2024-02-03] MEDS: morphine (oral solution) 10MG/0.5ML Syringe 10 MG SL (21:09)
[2024-02-04 04:40] VITALS: PULSE 90; RESP 16; O2SAT 94
[2024-02-04 06:00] VITALS: BP 154/88; PULSE 91
[2024-02-04 06:12] VITALS: BP 154/88; PULSE 91
[2024-02-04] MEDS: hydrALAZINE 10 MG Tablet PO (06:12)
[2024-02-04 06:33] LABS: Bedside Glucose 125 mg/dL (74-106)
[2024-02-04] MEDS: Loratadine 10 MG Tablet PO (09:07)
[2024-02-04] MEDS: DULoxetine Hcl 60 MG Capsule PO (09:08)
[2024-02-04] MEDS: Calcitriol 0.25 MCG Capsule 0.5 MCG PO (09:08)
[2024-02-04] MEDS: busPIRone 15 MG TABLET 7.5 MG PO (09:08)
[2024-02-04] MEDS: Cholecalciferol (VIT D3) 25 MCG TABLET (1,000 UNITS) 100 MCG PO (09:08)
[2024-02-04] MEDS: Lidocaine 5% Patch 2 PATCH TOPICAL (09:08)
[2024-02-04] MEDS: Calcium Carb/Vitamin D 1 TABLET Tablet 2 TABLET PO (09:08)
[2024-02-04] MEDS: Ascorbic Acid 500 MG Tablet PO (09:08)
[2024-02-04] MEDS: Multivitamins,Ther W-Minerals Tablet 1 TABLET PO (09:08)
[2024-02-04] MEDS: APIXABAN 5 MG TABLET PO (09:08)
[2024-02-04] MEDS: Ferrous Sulfate 325 MG Tablet PO (09:08)
[2024-02-04] MEDS: Fluconazole 100 MG Tablet 200 MG PO (09:09)
[2024-02-04] MEDS: Clobetasol Propionate 0.05% Cream 1 APPLIC TOPICAL (09:11)
[2024-02-04 15:13] VITALS: BP 94/55; PULSE 65; PULSE 94; RESP 16; TEMP 36.1; O2SAT 94
--- NOTE | 2024-02-04 15:31 | CASEMGMT ---
Social Work SW conducted BIMS () and PHQ-9 () completed for MDS assessment. NEGRITO GaliciaW
[2024-02-04 18:40] VITALS: BP 113/60; PULSE 99; RESP 16; TEMP 36.3; O2SAT 95
== END 2024-02-04 18:50 | DRG 560 ==
PROVIDERS: Admitting Provider Family Medicine Geriatric Medicine; PCP Internal Medicine; Visit Provider Family Medicine Geriatric Medicine
DX: S72.142D Displaced intertrochanteric fracture of left femur, subsequent encounter for closed fracture with routine healing (principal); N39.0 Urinary tract infection, site not specified; E11.40 Type 2 diabetes mellitus with diabetic neuropathy, unspecified; D50.9 Iron deficiency anemia, unspecified; E21.3 Hyperparathyroidism, unspecified; B37.31 Acute candidiasis of vulva and vagina; I10 Essential (primary) hypertension; F32.A Depression, unspecified; J30.9 Allergic rhinitis, unspecified; E53.8 Deficiency of other specified B group vitamins; Z79.4 Long term (current) use of insulin; E55.9 Vitamin D deficiency, unspecified; W19.XXXD Unspecified fall, subsequent encounter; F41.9 Anxiety disorder, unspecified; Z79.82 Long term (current) use of aspirin; Z79.85 Long-term (current) use of injectable non-insulin antidiabetic drugs; N32.81 Overactive bladder; Z79.01 Long term (current) use of anticoagulants; Z79.899 Other long term (current) drug therapy; Z86.711 Personal history of pulmonary embolism
CPT/HCPCS: 36415; 72100; 72170; 73502; 73552; 73590; 80048; 81001; 82962; 85014; 85018; 85025; 87077; 87086; 87088; 87186; 87811; 92507; 92523; 97110; 97116; 97129; 97130; 97140; 97162; 97166; 97530; 97535; 97802; A4216; J3420

== ENCOUNTER → 2024-02-07 05:00 | Outpatient (REF) | payer MEDICARE, SELFPAY ==
[2024-02-07 09:40] LABS: Hematocrit 36.7 % (37-47); Hemoglobin 11.1 g/dL (12.0-15.0); Mean Corp Hgb Conc 30.2 g/dL (32-36); Mean Corpuscular Hgb 28.7 pg (27.0-32.0); Mean Corpuscular Volume 94.8 fL (81-99); Mean Platelet Vol. 11.1 fl (6.2-12.0); Platelet Count 388 K/mm3 (150-450); RBC Distribution Width CV 15.9 % (11.6-14.6); RBC Distribution Width SD 55.1 fl (35.1-43.9); Red Blood Count 3.87 M/mm3 (4.2-5.4); White Blood Count 6.5 K/mm3 (4.4-11.0)
[2024-02-07 10:04] LABS: Anion Gap 8 (5-15); BUN 12 mg/dL (7-18); BUN/Creat Ratio 21.4 RATIO (10-20); Calcium,Total 9.4 mg/dL (8.5-10.1); Chloride 105 mmol/L (98-107); Creatinine, Serum 0.56 mg/dL (0.55-1.02); EST Glomerular Filtration Rate 110 mL/min (>60); Est Glom Filt Rate - Afr Amer 133 mL/min (>60); Glucose 132 mg/dL (74-106); Potassium 3.6 mmol/L (3.5-5.1); Sodium Level 138 mmol/L (136-145)
== END ==
LOC: OLS.SW 05:00
PROVIDERS: PCP Internal Medicine; Visit Provider Family Medicine
DX: I10 Essential (primary) hypertension (principal); N39.0 Urinary tract infection, site not specified; E11.9 Type 2 diabetes mellitus without complications
CPT/HCPCS: 36415; 80048; 85027

== ENCOUNTER → 2024-02-09 | Outpatient (REF) | payer MEDICARE, SELFPAY ==
[2024-02-09 10:03] LABS: Vitamin D,25 Hydroxy 61.2 ng/mL
[2024-02-09 11:06] LABS: Hemoglobin A1c 6.3 % (3.8-5.6)
== END ==
LOC: OLS.SW 05:00
PROVIDERS: PCP Internal Medicine; Visit Provider Internal Medicine
DX: E11.9 Type 2 diabetes mellitus without complications (principal); E55.9 Vitamin D deficiency, unspecified
CPT/HCPCS: 36415; 82306; 83036

== ENCOUNTER 2024-05-05 22:59 | Emergency (ER) | payer MEDICARE, SELFPAY ==
[2024-05-05 22:59] VITALS: PULSE 97; RESP 18; TEMP 36.4; O2SAT 97; BMI 30.7
[2024-05-05 23:05] VITALS: O2SAT 96
--- NOTE | 2024-05-05 23:26 | CT_ITS ---
We are attempting to reach an attending provider to discuss findings. An addendum with communication details will be sent when the communication is complete. EXAM: CT HEAD WITHOUT INTRAVENOUS CONTRAST CLINICAL INDICATION: trauma TECHNIQUE: Multiple axial images were obtained of the head without intravenous contrast. This CT exam was performed using one or more of the following dose reduction techniques: automated exposure control, adjustment of the mA and/or kV according to patient size, and/or use of iterative reconstruction technique. RADIATION DOSE: CTDIvol = 44.99 mGy, DLP = 914.22 mGy-cm COMPARISON: Head CT 06/12/2023 FINDINGS: BRAIN AND EXTRA-AXIAL SPACES: Large, mixed density subdural hematoma overlying the right cerebral hemisphere measuring up to 2.1 cm in thickness. Mass effect on the underlying right cerebral hemisphere with associated midline shift to the left measuring up to 7 mm. Small foci of traumatic subarachnoid hemorrhage within sulci of the right frontal lobe anteriorly as well. No evidence of acute infarct. There is preservation of the mcfadden/white matter interface. Posterior fossa structures are unremarkable. Basal cisterns are patent. BONES/JOINTS: Unremarkable. No discrete lytic or blastic abnormalities. SINUSES: Unremarkable as visualized. Clear. MASTOID AIR CELLS: Unremarkable. Clear. ORBITS: Visualized globes, extraocular muscles, optic nerves and retrobulbar fat appear unremarkable. CT/Brain/Head without Contrast IMPRESSION: 1. Large, mixed density subdural hematoma overlying the right cerebral hemisphere measuring up to 2.1 cm in thickness. 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 2. Mass effect on the underlying right cerebral hemisphere with associated midline shift to the left measuring up to 7 mm. 3. Small foci of traumatic subarachnoid hemorrhage within sulci of the right frontal lobe anteriorly as well. Electronically Signed: Raj Moody MD at 0:02 EST ,
--- NOTE | 2024-05-05 23:26 | CT_ITS ---
EXAM: CT LUMBAR SPINE WITHOUT INTRAVENOUS CONTRAST CLINICAL INDICATION: Trauma TECHNIQUE: Helically acquired images were obtained of the lumbar spine without intravenous contrast. 2D reformats were reviewed. This CT exam was performed using one or more of the following dose reduction techniques: automated exposure control, adjustment of the mA and/or kV according to patient size, and/or use of iterative reconstruction technique. RADIATION DOSE: CTDIvol = 39.07 mGy, DLP = 1467.45 mGy-cm COMPARISON: CT lumbar spine from 06/13/2017. FINDINGS: VERTEBRAE: No acute fractures. Spondylolisthesis of L5 on S1 measuring 1.2 cm. Chronic L1 Compression deformity. No discrete lytic or blastic abnormality. DISCS/SPINAL CANAL/NEURAL FORAMINA: Degenerative changes of the intervertebral discs. No critical stenosis. VASCULATURE: Visualized abdominal aorta is not dilated. LYMPH NODES: Unremarkable. No retroperitoneal adenopathy. CT/Spine Lumbar without Contrast IMPRESSION: 1. No acute injuries identified involving the lumbar spine. 2. Degenerative changes. 3. Spondylolisthesis of L5 on S1 measuring 1.2 cm. 4. Chronic L1 compression deformity. Electronically Signed: Raj Moody MD at 0:07 EST ,
--- NOTE | 2024-05-05 23:26 | CT_ITS ---
EXAM: CT CERVICAL SPINE WITHOUT INTRAVENOUS CONTRAST CLINICAL INDICATION: trauma TECHNIQUE: Helically acquired images were obtained of the cervical spine without intravenous contrast. 2D reformatted images were reviewed. This CT exam was performed using one or more of the following dose reduction techniques: automated exposure control, adjustment of the mA and/or kV according to patient size, and/or use of iterative reconstruction technique. RADIATION DOSE: CTDIvol = 21.91 mGy, DLP = 510.20 mGy-cm COMPARISON: No relevant prior studies available. FINDINGS: VERTEBRAE: Unremarkable. No fracture. No traumatic subluxation. No discrete lytic or blastic abnormality. Normal alignment. Normal craniocervical junction and cervicothoracic junction. DISCS/SPINAL CANAL/NEURAL FORAMINA: Degenerative changes of the intervertebral discs. No critical stenosis. SOFT TISSUES: Unremarkable. No prevertebral soft tissue swelling. VASCULATURE: Carotid artery calcifications. LYMPH NODES: Unremarkable. No cervical adenopathy. LUNG APICES: Unremarkable as visualized. Clear. CT/Spine Cervical without Contras IMPRESSION: 1. No acute injuries identified involving the cervical spine. 2. Degenerative changes. Electronically Signed: Raj Moody MD at 0:04 EST ,
--- NOTE | 2024-05-05 23:26 | CT_ITS ---
EXAM: CT THORACIC SPINE WITHOUT INTRAVENOUS CONTRAST CLINICAL INDICATION: Trauma TECHNIQUE: Helically acquired images were obtained of the thoracic spine without intravenous contrast. 2D reformats were reviewed. This CT exam was performed using one or more of the following dose reduction techniques: automated exposure control, adjustment of the mA and/or kV according to patient size, and/or use of iterative reconstruction technique. RADIATION DOSE: CTDIvol = 27.37 mGy, DLP = 945.77 mGy-cm COMPARISON: No relevant prior studies available. FINDINGS: VERTEBRAE: Unremarkable. No fracture. No traumatic subluxation. No discrete lytic or blastic abnormality. Normal alignment. DISCS/SPINAL CANAL/NEURAL FORAMINA: Degenerative changes of the intervertebral discs. VASCULATURE: Visualized thoracic aorta is not dilated. LYMPH NODES: Unremarkable. No retroperitoneal adenopathy. LUNGS AND PLEURAL SPACES: Unremarkable as visualized. No mass. No consolidation or edema. No pleural effusion or thickening. No pneumothorax. CT/Spine Thoracic without Contras IMPRESSION: 1. No acute injuries identified involving the thoracic spine. 2. Degenerative changes. Electronically Signed: Raj Moody MD at 0:05 EST ,
--- NOTE | 2024-05-05 23:29 | ED.VIS.FALL ---
HPI HPI - Fall History of Present Illness Chief Complaint: Fall Narrative Narrative: History and physical limited secondary to dementia, according to her daughter who is visiting, patient had a fall back in December of this year, 4 months ago. She had surgery by Dr. Neely. She spent time in the TCU, then went to [facility]. She recently went back to assisted living with her approximately 3 weeks ago. Additionally, she was recently diagnosed with dementia 2 weeks ago. Her daughter states that they were trying on close today, and she was also taking her mother to various doctor appointments. She received a call that her mother was found after a fall and was lying in the closet. Patient does not remember what had happened or how she had fallen. Reportedly she went to bed earlier than her , but does not remember the fall. Patient has chronic low back pain and was recently getting injections. She complains of low back pain, but her daughter is concerned about her left ankle and her left knee because there is a red jessica on her left knee that was not there before, and her left ankle appears swollen. Patient denies any right leg pain. Her daughter states that she is the patient's power of ip attorney and makes all her decisions because of the dementia. She states that her mother has multiple allergies, but morphine would be the most effective in treating her pain given her multiple allergies. [facility] Medical History History of pernicious anemia History of pulmonary embolus (PE) History of hypercholesterolemia History of hypertension History of type 2 diabetes mellitus History of chest pain Diabetes mellitus, type 2 Obesity (BMI 30.0-34.9) Back fracture Diabetes HTN (hypertension) Pulmonary emboli Home Medications ?Medication ?Instructions ?Recorded ?Last Taken ?Type calcitriol 0.5 mcg capsule 0.5 mcg PO DAILY Supplement 03/04/15 Unknown History ascorbic acid (vitamin C) 500 mg 500 mg PO DAILY Supplement 03/31/19 Unknown History tablet calcium 600 mg (as 2 tab PO DAILY Supplement 03/31/19 Unknown History carbonate)-vitamin D3 5 mcg (200 unit) tablet cyanocobalamin (vitamin B-12) 1,000 mcg IM Q30D Supplement 03/31/19 Unknown History 1,000 mcg/mL injection solution multivitamin with minerals 1 ea PO DAILY Supplement 03/31/19 Unknown History oxybutynin chloride 10 mg 10 mg PO QHS overactive bladder 03/31/19 Unknown History tablet,extended release 24 hr apixaban 5 mg tablet 5 mg PO BID Anticoagulant #74 tabs 08/27/20 Unknown Rx cholecalciferol (vitamin D3) 50 100 mcg PO DAILY Supplement 01/10/24 Unknown History mcg (2,000 unit) capsule duloxetine 20 mg capsule,delayed 40 mg PO DAILY Depression 01/10/24 Unknown History release (Cymbalta) ferrous sulfate 325 mg (65 mg 325 mg PO DAILY Supplement 01/10/24 Unknown History iron) tablet (Iron (ferrous sulfate)) fluconazole 200 mg tablet 200 mg PO MOWEFR Antifungal 01/10/24 Unknown History (Diflucan) loratadine 10 mg tablet (Claritin) 10 mg PO DAILY Allergies 01/10/24 Unknown History tirzepatide 5 mg/0.5 mL 5 mg subcut QWEEK Diabetes 01/10/24 01/08/24 History subcutaneous pen injector (Mounjaro) acetaminophen 500 mg tablet 1,000 mg (2 x 500 mg) PO Q8 PRN 02/01/24 Unknown Rx Pain 1-10 Or Fever #0 tabs buspirone 15 mg tablet 7.5 mg (1/2 x 15 mg) PO BID #0 tabs 02/01/24 Unknown Rx calcium carbonate 500 mg (2.5 x 200 mg calcium (500 02/01/24 Unknown Rx mg)) PO Q4H PRN PRN Indigestion #0 tabs clobetasol 0.05 % topical cream 1 applic topical BID #0 grams 02/01/24 Unknown Rx hydralazine 10 mg tablet 10 mg PO TID #0 tabs 02/01/24 Unknown Rx lidocaine 5 % topical patch 2 patch topical DAILY #0 ea 02/01/24 Unknown Rx magnesium citrate 300 ml PO DAILY PRN Constipation 02/01/24 Unknown Rx #0 mL melatonin 10 mg sublingual tablet 10 mg PO QHS #0 tabs 02/01/24 Unknown Rx menthol 0.44 %-zinc oxide 20.6 % 1 applic topical BID #0 grams 02/01/24 Unknown Rx topical ointment (Calmoseptine) morphine concentrate 10 mg/0.5 mL 10 mg (0.5 mL) sublingual Q2H PRN 02/01/24 Unknown Rx oral syringe (FOR ORAL USE ONLY) PRN Pain Score 6-10 3 days #18 mL sennosides 8.6 mg-docusate sodium 1 tab PO BID #0 tabs 02/01/24 Unknown Rx 50 mg tablet (Stimulant Laxative Plus) tramadol 50 mg tablet 50 mg PO Q6H PRN PRN Pain Score 02/01/24 Unknown Rx 1-5 Or Pre Pt/Ot 3 days #12 tabs Allergy/AdvReac Type Severity Reaction Status Date / Time adhesive Allergy Rash Verified 05/05/24 22:59 aspirin (ASA) Allergy Anaphylaxis Verified 05/05/24 22:59 atorvastatin (From Lipitor) Allergy Unknown Verified 05/05/24 22:59 Dressing: Non-Medicated Allergy Rash Verified 05/05/24 22:59 exenatide (From Byetta) Allergy Unknown Verified 05/05/24 22:59 ezetimibe (From Zetia) Allergy Rash Verified 05/05/24 22:59 irbesartan (From Avapro) Allergy Swelling Verified 05/05/24 22:59 niacin Allergy Unknown Verified 05/05/24 22:59 Penicillins Allergy Rash Verified 05/05/24 22:59 pravastatin Allergy Rash Verified 05/05/24 22:59 rosuvastatin (From Crestor) Allergy Unknown Verified 05/05/24 22:59 simvastatin (From Zocor) Allergy Rash Verified 05/05/24 22:59 [id number] Reductase Allergy Other Verified 05/05/24 22:59 Inhibitor (Yzrkqvz-Bvz-Tsl Reductase Inhibitor) oxycodone AdvReac Intermediate confusion Verified 05/05/24 22:59 hydrocodone AdvReac Unknown Itching Verified 05/05/24 22:59 erythromycin base AdvReac Other Verified 05/05/24 22:59 etodolac AdvReac Unknown Verified 05/05/24 22:59 metformin AdvReac Diarrhea Verified 05/05/24 22:59 NSAIDS (Non-Steroidal AdvReac Other Verified 05/05/24 22:59 Anti-Inflamma Sulfa (Sulfonamide AdvReac Rash Verified 05/05/24 22:59 Antibiotics) Surgical History History of colon surgery Hx of sinus surgery Hx of tubal ligation Hx of gastric bypass History of hernia surgery History of total right knee replacement Social History household members: spouse Smoking Status: Never smoker alcohol intake: never substance use type: does not use ROS ROS ED ROS Narrative Unable to obtain from patient given history of dementia. Complains of low back pain. Positive red jessica left knee with history of TKA. Swelling of left ankle. Per daughter, complains of pain on the left side of the back of her head. No neck pain. EXAM Physical Exam Narrative Exam Narrative: GCS is 15. ABCs intact. PERRL, EOMI. Neck soft and supple. Cardiovascular examination regular rate and rhythm. Lungs are clear to auscultation bilaterally. Abdomen soft with positive bowel sounds. Awake, alert, consistent with mild dementia. Inspection of the left lower extremity does show abrasion on left knee. Full range of motion right lower extremity. Pelvis stable. No pain with logrolling of bilateral femurs. Positive swelling and ecchymosis left lateral ankle. Palpable dorsalis pedis pulse. Skin tear of the left distal upper arm, no active bleeding. Const Vital Signs: 05/05/24 22:59 05/05/24 23:05 05/06/24 00:00 Temperature 97.6 F L Temperature Source Oral Pulse Rate 97 81 Respiratory Rate 18 20 H Respiratory Effort Normal Respiratory Depth Normal Respiratory Pattern Normal Blood Pressure 180/75 H Blood Pressure Mean 110 Pulse Ox 97 96 95 Oxygen Delivery Method Room Air Room Air Room Air Oxygen Flow Rate (L/min) 05/06/24 00:09 05/06/24 00:13 05/06/24 00:15 Temperature Temperature Source Pulse Rate 101 H 74 Respiratory Rate 23 H 13 Respiratory Effort Respiratory Depth Respiratory Pattern Blood Pressure 182/104 H 182/104 H Blood Pressure Mean 130 130 Pulse Ox 89 97 Oxygen Delivery Method Room Air Room Air Nasal Cannula Oxygen Flow Rate (L/min) 2 05/06/24 00:19 05/06/24 00:24 05/06/24 00:30 Temperature Temperature Source Pulse Rate 77 76 Respiratory Rate 20 H 22 H Respiratory Effort Respiratory Depth Respiratory Pattern Blood Pressure 151/68 H 162/84 H Blood Pressure Mean 95 110 Pulse Ox 99 99 98 Oxygen Delivery Method Nasal Cannula Nasal Cannula Nasal Cannula Oxygen Flow Rate (L/min) 2 2 05/06/24 00:44 05/06/24 01:12 05/06/24 01:12 Temperature 98.2 F Temperature Source Pulse Rate 76 76 Respiratory Rate 17 17 Respiratory Effort Respiratory Depth Respiratory Pattern Blood Pressure 102/57 L 142/80 H 102/57 L Blood Pressure Mean 72 100 72 Pulse Ox 95 95 Oxygen Delivery Method Nasal Cannula Oxygen Flow Rate (L/min) MDM MDM MDM Narrative Medical decision making narrative: Differential diagnosis includes closed head injury versus intracranial hemorrhage. Given her chronic low back pain, and unwitnessed fall, she may have compression fracture. There is also concern for ankle sprain versus ankle fracture. Given her history of knee replacement, she may have periprosthetic fracture of the left knee. She was administered morphine and ondansetron for analgesia. I received a call from the surveying technician and independently reviewed the CT of the brain which shows a subdural hemorrhage. I received a call from the radiologist as well confirming which could be more of an acute on chronic or acute on subacute subdural hematoma with acute hemorrhage. It measures 2.1 cm with 7 mm of midline shift. There is also a subarachnoid hemorrhage in the right frontal lobe. I reviewed the radiology reports of the CTs of the C-spine, thoracic spine, and lumbar spine, and there is no acute fracture. I reviewed her laboratory work and she has a hemoglobin of 11.4 with WBC count 8.0, chloride 109. I added coagulation studies, and the patient is on Eliquis according to her daughter. Patient had elevated blood pressure initially of 211, but currently 180 systolic. She will be given labetalol intravenously. In discussion with her daughter who is her DURABLE POWER OF EBAY RESELLER, she would like her transferred to [facility]. She states that she is a DNR Comfort Care arrest, and I had discussed the use of Kcentra with her but she declined. In discussion with the critical care transport for [facility], I discussed patient with Dr. Peng with the emergency medicine who has accepted her in transfer. Disposition and transferred in stable condition, critical care time 31 minutes. History & Record Review Discussion w/independent historian: Patient and Family Lab Data Attestation: I reviewed the patient's lab results. Labs: Laboratory Results - last 24 hr 05/05/24 05/05/24 23:05 23:50 WBC 8.0 RBC 3.99 L Hgb 11.4 L Hct 36.9 L MCV 92.5 MCH 28.6 MCHC 30.9 L RDW Std Deviation 54.1 H RDW Coeff of Gail 15.9 H Plt Count 373 MPV 10.7 Immature Gran % (Auto) 1.500 H Neut % (Auto) 61.3 Lymph % (Auto) 23.6 Island % (Auto) 10.4 H Eos % (Auto) 2.6 Baso % (Auto) 0.6 Absolute Neuts (auto) 4.9 Absolute Lymphs (auto) 1.89 Nucleated RBC % 0 PT 14.1 INR 1.1 APTT 26.8 Sodium 140 Potassium 3.6 Chloride 109 H Carbon Dioxide 24.0 Anion Gap 7 BUN 17 Creatinine 0.57 Estim Creat Clear Calc 60.00 Est GFR (MDRD) Af Amer 130 Est GFR (MDRD) Non-Af 107 BUN/Creatinine Ratio 29.7 H Glucose 134 H Calcium 8.6 Radiography Diagnostic Testing: Clinical Impression(s) from Imaging Studies Brain CT 05/05/24 23:26 IMPRESSION: 1. Large, mixed density subdural hematoma overlying the right cerebral hemisphere measuring up to 2.1 cm in thickness. 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 2. Mass effect on the underlying right cerebral hemisphere with associated midline shift to the left measuring up to 7 mm. 3. Small foci of traumatic subarachnoid hemorrhage within sulci of the right frontal lobe anteriorly as well. Electronically Signed: Raj Moody MD at 0:02 EST Reading Location ID and State: [facility] / [place] Tel , Service support , ADDENDUM: 05/06/24 0019 IMPRESSION: 1. Large, mixed density subdural hematoma overlying the right cerebral hemisphere measuring up to 2.1 cm in thickness. 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 2. Mass effect on the underlying right cerebral hemisphere with associated midline shift to the left measuring up to 7 mm. 3. Small foci of traumatic subarachnoid hemorrhage within sulci of the right frontal lobe anteriorly as well. N.B. : The above Results were Read Back by Raj Moody MD to Arden Leger MD, and understanding confirmed on 05/06/2024 00:12:26 (ET). Electronically Signed: Raj Moody MD at 0:02 EST Reading Location ID and State: [facility] / [place] Tel , Service support , Cervical Spine CT 05/05/24 23:26 IMPRESSION: 1. No acute injuries identified involving the cervical spine. 2. Degenerative changes. Electronically Signed: Raj Moody MD at 0:04 EST Reading Location ID and State: [facility] / [place] Tel , Service support , Lumbar Spine CT 05/05/24 23:26 IMPRESSION: 1. No acute injuries identified involving the lumbar spine. 2. Degenerative changes. 3. Spondylolisthesis of L5 on S1 measuring 1.2 cm. 4. Chronic L1 compression deformity. Electronically Signed: Raj Moody MD at 0:07 EST Reading Location ID and State: [facility] / [place] Tel , Service support , Thoracic Spine CT 05/05/24 23:26 IMPRESSION: 1. No acute injuries identified involving the thoracic spine. 2. Degenerative changes. Electronically Signed: Raj Moody MD at 0:05 EST Reading Location ID and State: [facility] / [place] Tel , Service support , Critical Care Time Critical Care Time: Yes Critical care time (excluding procedures): 30-74 minutes (31 minutes), Including time spent:, Discussing w/Patient &/or Family/Accounts Administrator, Discussing w/Consultants and Arranging Admission or Transfer Discharge Plan Triage Chief Complaint: Fall ED Provider: Arden Leger Dx/Rx/DC Orders Clinical Impression: Fall, Subdural hemorrhage, Subarachnoid hemorrhage, Anticoagulant long-term use Prescriptions: No Action calcitriol 0.5 MCG capsule 0.5 mcg PO DAILY Patient Comments: oxybutynin chloride 10 MG tablet extended release 24hr 10 mg PO QHS calcium carbonate-vitamin D3 1 EACH tablet 2 tab PO DAILY ascorbic acid (vitamin C) 500 MG tablet 500 mg PO DAILY cyanocobalamin (vitamin B-12) 1,000 MCG/ML solution 1,000 mcg IM Q30D multivitamin with minerals 1 EACH tablet 1 ea PO DAILY apixaban 5 MG tablet 5 mg PO BID Qty: 74 0RF Rx Instructions: 10 mg twice a day for the first week. Then 5 mg twice a day. loratadine [Claritin] 10 mg tablet 10 mg PO DAILY duloxetine [Cymbalta] 20 mg capsule,delayed release(DR/EC) 40 mg PO DAILY fluconazole [Diflucan] 200 mg tablet 200 mg PO MOWEFR ferrous sulfate [Iron (ferrous sulfate)] 325 mg (65 mg iron) tablet 325 mg PO DAILY Mounjaro 5 mg/0.5 mL pen injector 5 mg subcut QWEEK Rx Instructions: Give every Wednesday. Patient to provide own medication. cholecalciferol (vitamin D3) 50 mcg (2,000 unit) capsule 100 mcg PO DAILY acetaminophen 500 mg Tablet 1,000 mg PO Q8 PRN (Reason: Pain 1-10 Or Fever) Qty: 0 0RF calcium carbonate 200 mg calcium (500 mg) Tablet,Chewable 500 mg PO Q4H PRN PRN (Reason: Indigestion) Qty: 0 0RF buspirone 15 mg Tablet 7.5 mg PO BID Qty: 0 0RF hydralazine 10 mg Tablet 10 mg PO TID Qty: 0 0RF clobetasol 0.05 % Cream 1 applic topical BID Qty: 0 0RF Protocol: *Topical Application Instructions APPLICATION INSTRUCTIONS: Vaginal. lidocaine 5 % Adhesive Patch,Medicated 2 patch topical DAILY Qty: 0 0RF Protocol: *Topical Application Instructions APPLICATION INSTRUCTIONS: Left hip. magnesium citrate Solution 300 ml PO DAILY PRN (Reason: Constipation) Qty: 0 0RF menthol-zinc oxide [Calmoseptine] 0.44-20.6 % Ointment 1 applic topical BID Qty: 0 0RF Protocol: *Topical Application Instructions APPLICATION INSTRUCTIONS: jalil buttocks melatonin 10 mg Tablet, Sublingual 10 mg PO QHS Qty: 0 0RF sennosides-docusate sodium [Stimulant Laxative Plus] 8.6-50 mg Tablet 1 tab PO BID Qty: 0 0RF morphine concentrate 10 mg/0.5 mL Syringe 10 mg sublingual Q2H PRN PRN (Reason: Pain Score 6-10) 3 Days Qty: 18 0RF tramadol 50 mg Tablet 50 mg PO Q6H PRN PRN (Reason: Pain Score 1-5 Or Pre Pt/Ot) 3 Days Qty: 12 0RF Primary Care Provider: Aria Helms Referrals: Aria Helms MD [Primary Care Provider] - Print Language: Frisian Disposition Disposition: Acute Care Hospital Discharge Location: [facility] Discharge Date/Time: 05/06/24 01:18
[2024-05-05] MEDS: Ondansetron 4 MG/2 ML Vial IV (23:58)
[2024-05-05] MEDS: Morphine 4 MG/ML Syringe IV (23:58)
[2024-05-06] VITALS (8 sets, daily range): BP systolic 102–182; BP diastolic 57–104; PULSE 74–101; RESP 13–23; TEMP 36.8; O2SAT 89–99
[2024-05-06 00:02] LABS: Anion Gap 7 (5-15); BUN 17 mg/dL (7-18); BUN/Creat Ratio 29.7 RATIO (10-20); Calcium,Total 8.6 mg/dL (8.5-10.1); Chloride 109 mmol/L (98-107); Creatinine, Serum 0.57 mg/dL (0.55-1.02); EST Glomerular Filtration Rate 107 mL/min (>60); Est Glom Filt Rate - Afr Amer 130 mL/min (>60); Glucose 134 mg/dL (74-106); Potassium 3.6 mmol/L (3.5-5.1); Sodium Level 140 mmol/L (136-145)
[2024-05-06 00:09] LABS: Absolute Lymphocyte Count 1.89 X10^3/uL (0.83-4.51); Absolute Neutrophil Count 4.9 X10^3/uL (2.0-7.7); Basophil# 0.05 X10^3/uL; Basophil% 0.6 % (0-1); Eosinophil# 0.21 X10^3/uL; Eosinophils% 2.6 % (0-5); Hematocrit 36.9 % (37-47); Hemoglobin 11.4 g/dL (12.0-15.0); Lymphocyte # 1.89 X10^3/ul (0.83-4.51); Lymphocyte % 23.6 % (19-41); Mean Corp Hgb Conc 30.9 g/dL (32-36); Mean Corpuscular Hgb 28.6 pg (27.0-32.0); Mean Corpuscular Volume 92.5 fL (81-99); Mean Platelet Vol. 10.7 fl (6.2-12.0); Monocyte# 0.83 X10^3/uL; Monocyte% 10.4 % (0-10); NRBC Flagged by Analyzer 0 % (0-5); Neutrophil % 61.3 % (47-70); Platelet Count 373 K/mm3 (150-450); RBC Distribution Width CV 15.9 % (11.6-14.6); RBC Distribution Width SD 54.1 fl (35.1-43.9); Red Blood Count 3.99 M/mm3 (4.2-5.4)
[2024-05-06] MEDS: Labetalol (Prefilled) 20 MG/4 ML Vial IV ×2 (00:15→00:28)
[2024-05-06 00:34] LABS: International Normalized Ratio 1.1; Partial Thromboplast Time 26.8 Seconds (24.1-36.2); Prothrombin Time (Protime)PT. 14.1 SECONDS (11.7-14.9)
[2024-05-06] MEDS: Ondansetron 4 MG/2 ML Vial IV (01:13)
[2024-05-06] MEDS: Morphine 4 MG/ML Syringe IV (01:13)
--- NOTE | 2024-05-06 01:26 | ED.RN ---
ATTEMPTED TO UPDATE RETIREMENT ON PT. NO ANSWER. TWO ATTEMPTS MADE W/ NO NURSE TO ANSWER THE PHONE.
--- NOTE | 2024-05-06 01:35 | ED.RN ---
REPORT CALLED TO [facility] ED NURSE, MODESTO. NO FURTHER QUESTIONS BY THE NURSE AT THIS TIME.
== END 2024-05-06 01:18 | disposition short-term general hospital (02) ==
PROVIDERS: Emergency Provider Emergency Medicine; PCP Internal Medicine; Visit Provider Emergency Medicine
DX: S06.5XAA Traumatic subdural hemorrhage with loss of consciousness status unknown, initial encounter (principal); F03.90 Unspecified dementia, unspecified severity, without behavioral disturbance, psychotic disturbance, mood disturbance, and anxiety; S06.6XAA Traumatic subarachnoid hemorrhage with loss of consciousness status unknown, initial encounter; E11.9 Type 2 diabetes mellitus without complications; S80.212A Abrasion, left knee, initial encounter; S41.112A Laceration without foreign body of left upper arm, initial encounter; S90.02XA Contusion of left ankle, initial encounter; W19.XXXA Unspecified fall, initial encounter; Y92.099 Unspecified place in other non-institutional residence as the place of occurrence of the external cause; I10 Essential (primary) hypertension; D51.0 Vitamin B12 deficiency anemia due to intrinsic factor deficiency; E66.9 Obesity, unspecified; E78.00 Pure hypercholesterolemia, unspecified; M54.50 Low back pain, unspecified; G89.29 Other chronic pain; Z66 Do not resuscitate; Z88.0 Allergy status to penicillin; Z88.8 Allergy status to other drugs, medicaments and biological substances; Z88.2 Allergy status to sulfonamides; Z88.6 Allergy status to analgesic agent; Z88.1 Allergy status to other antibiotic agents; Z79.01 Long term (current) use of anticoagulants; Z86.711 Personal history of pulmonary embolism; Z79.85 Long-term (current) use of injectable non-insulin antidiabetic drugs; Z98.84 Bariatric surgery status; Z96.651 Presence of right artificial knee joint; Z79.899 Other long term (current) drug therapy
CPT/HCPCS: 70450; 72125; 72128; 72131; 80048; 85025; 85610; 85730; 96374; 96375; 96376; 99285; A4216; J2405

== ENCOUNTER → 2024-06-09 05:45 | Outpatient (REF) | payer MEDICARE, SELFPAY ==
[2024-06-09 08:06] LABS: Mucous, Urine 0 SEEN /hpf (<or=2+); Red Blood Cells-Urine 0 SEEN /hpf (0-5); Squamous Epithelial Cells - UA 0 SEEN /hpf (5-10)
[2024-06-09 08:25] LABS: Color, Urine Yellow (Yellow); Glucose, Dipstick Normal (Normal); Ketone-Dipstick Negative (Negative); Leukocyte Esterase-Dipstick 500 /ul (Negative); Nitrite-Dipstick Positive (Negative); Occult Blood-Urine 150 /ul (Negative); Protein-Dipstick 100 mg/dl (Negative); Urine Bilirubin Dipstick Negative (Negative); Urine Clarity Turbid (Clear); Urine Urobilinogen Normal (Normal)
[2024-06-09 10:30] LABS: Bacteria 2+ /hpf (None Seen); White Blood Cells 10-25 SEEN /hpf (0-5)
== END ==
LOC: OLS.ACH 05:45
PROVIDERS: PCP Internal Medicine; Visit Provider Internal Medicine
DX: R33.9 Retention of urine, unspecified (principal); N39.0 Urinary tract infection, site not specified
CPT/HCPCS: 81001; 87077; 87086; 87088; 87186

== ENCOUNTER → 2024-06-20 | Outpatient (REF) | payer MEDICARE, SELFPAY ==
[2024-06-20 08:48] LABS: Absolute Lymphocyte Count 1.17 X10^3/uL (0.83-4.51); Absolute Neutrophil Count 5.5 X10^3/uL (2.0-7.7); Basophil# 0.09 X10^3/uL; Basophil% 1.1 % (0-1); Eosinophil# 0.24 X10^3/uL; Hematocrit 33.9 % (37-47); Hemoglobin 10.5 g/dL (12.0-15.0); Lymphocyte # 1.17 X10^3/ul (0.83-4.51); Lymphocyte % 14.7 % (19-41); Mean Corpuscular Hgb 28.8 pg (27.0-32.0); Mean Corpuscular Volume 93.1 fL (81-99); Mean Platelet Vol. 10.3 fl (6.2-12.0); Monocyte# 0.89 X10^3/uL; Monocyte% 11.2 % (0-10); NRBC Flagged by Analyzer 0 % (0-5); Neutrophil # 5.53 X10^3/uL (2.7-7.7); Neutrophil % 69.5 % (47-70); Platelet Count 299 K/mm3 (150-450); RBC Distribution Width CV 15.1 % (11.6-14.6); RBC Distribution Width SD 51.5 fl (35.1-43.9); Red Blood Count 3.64 M/mm3 (4.2-5.4)
[2024-06-20 09:09] LABS: ALB/GLOB Ratio 0.5 RATIO (0.9-2.4); AST(SGOT) 17 U/L (15-37); Alanine Aminotransfer ALT/SGPT 10 U/L (13-56); Albumin, Serum 1.9 g/dL (3.2-5.0); Alkaline Phosphatase 148 U/L (45-117); Anion Gap 8 (5-15); BUN 13 mg/dL (7-18); BUN/Creat Ratio 30.9 RATIO (10-20); Calcium,Total 8.7 mg/dL (8.5-10.1); Chloride 108 mmol/L (98-107); Creatinine, Serum 0.42 mg/dL (0.55-1.02); EST Glomerular Filtration Rate 153 mL/min (>60); Est Glom Filt Rate - Afr Amer 185 mL/min (>60); Globulin 4.1 g/dL (2.2-4.2); Glucose 104 mg/dL (74-106); Potassium 3.8 mmol/L (3.5-5.1); Sodium Level 139 mmol/L (136-145)
== END ==
LOC: OLS.ACH 05:00
PROVIDERS: PCP Internal Medicine; Visit Provider Internal Medicine
DX: E11.65 Type 2 diabetes mellitus with hyperglycemia (principal); N39.0 Urinary tract infection, site not specified; E78.5 Hyperlipidemia, unspecified; E87.5 Hyperkalemia
CPT/HCPCS: 36415; 80053; 85025; 87493

== ENCOUNTER → 2024-08-08 | Outpatient (REF) | payer MEDICARE, SELFPAY ==
[2024-08-08 09:40] LABS: Pro- Brain NATRIURETIC PEPTIDE 1235 pg/mL (<=1800)
== END ==
LOC: OLS.ACH 05:00
PROVIDERS: PCP Internal Medicine; Visit Provider Internal Medicine
DX: E11.65 Type 2 diabetes mellitus with hyperglycemia (principal); E43 Unspecified severe protein-calorie malnutrition
CPT/HCPCS: 83880

== ENCOUNTER → 2024-08-11 | Outpatient (REF) | payer MEDICARE, SELFPAY ==
[2024-08-11 09:49] LABS: Anion Gap 10 (5-15); BUN 14 mg/dL (4-19); BUN/Creat Ratio 29.2 RATIO (10-20); Calcium,Total 8.6 mg/dL (7.6-11.0); Carbon Dioxide 24.2 mmol/L (21.0-32.0); Chloride 103 mmol/L (98-108); Creatinine, Serum 0.47 mg/dL (0.70-1.20); EST Glomerular Filtration Rate 95 (>60); Glucose 77 mg/dL (70-99); Potassium 3.7 mmol/L (3.3-5.1); Sodium Level 137 mmol/L (133-145)
[2024-08-11 10:26] LABS: Hemoglobin A1c 6.6 % (<=5.6)
== END ==
LOC: OLS.ACH 05:00
PROVIDERS: PCP Internal Medicine; Visit Provider Internal Medicine
DX: E11.65 Type 2 diabetes mellitus with hyperglycemia (principal); D50.0 Iron deficiency anemia secondary to blood loss (chronic)
CPT/HCPCS: 36415; 80048; 83036

== ENCOUNTER → 2024-09-11 | Outpatient (REF) | payer MEDICARE, SELFPAY ==
[2024-09-12 07:41] LABS: Mucous, Urine 0 SEEN /hpf (<or=2+); Squamous Epithelial Cells - UA 0 SEEN /hpf (5-10)
[2024-09-12 08:55] LABS: Color, Urine Yellow (Yellow); Glucose, Dipstick Normal (Normal); Ketone-Dipstick Negative (Negative); Leukocyte Esterase-Dipstick 500 /ul (Negative); Nitrite-Dipstick Positive (Negative); Occult Blood-Urine 25 /ul (Negative); Protein-Dipstick 100 mg/dl (Negative); Urine Bilirubin Dipstick Negative (Negative); Urine Clarity Turbid (Clear); Urine Urobilinogen Normal (Normal)
[2024-09-12 09:23] LABS: Bacteria 3+ /hpf (None Seen); White Blood Cells 10-25 SEEN /hpf (0-5)
[2024-09-12 09:24] LABS: Amorphous Sediment 1+; Red Blood Cells-Urine 0-5 SEEN /hpf (0-5); Triple Phosphate Crystals Ur 1+ /hpf (<or=1+)
== END ==
LOC: OLS.ACH 21:45
PROVIDERS: PCP Internal Medicine; Referring Provider Internal Medicine; Visit Provider Internal Medicine
DX: E11.65 Type 2 diabetes mellitus with hyperglycemia (principal); E78.5 Hyperlipidemia, unspecified; R39.9 Unspecified symptoms and signs involving the genitourinary system
CPT/HCPCS: 81001; 87077; 87086; 87088; 87186

== ENCOUNTER → 2024-09-21 | Outpatient (REF) | payer MEDICARE, SELFPAY ==
[2024-09-21 07:32] LABS: Hematocrit 39.8 % (37-47); Hemoglobin 12.4 g/dL (12.0-15.0); Mean Corp Hgb Conc 31.2 g/dL (32-36); Mean Corpuscular Hgb 28.6 pg (27.0-32.0); Mean Corpuscular Volume 91.9 fL (81-99); Mean Platelet Vol. 10.4 fl (6.2-12.0); Platelet Count 320 K/mm3 (150-450); RBC Distribution Width CV 18.6 % (11.6-14.6); RBC Distribution Width SD 62.9 fl (35.1-43.9); Red Blood Count 4.33 M/mm3 (4.2-5.4); White Blood Count 6.5 K/mm3 (4.4-11.0)
[2024-09-21 07:34] LABS: ALB/GLOB Ratio 0.8 RATIO (0.9-2.4); AST(SGOT) 26 U/L (<=31); Alanine Aminotransfer ALT/SGPT 11 U/L (<=34); Albumin, Serum 2.6 g/dL (3.4-4.8); Alkaline Phosphatase 124 U/L (35-104); Anion Gap 10 (5-15); BUN 13 mg/dL (4-19); BUN/Creat Ratio 20.3 RATIO (10-20); Calcium,Total 8.9 mg/dL (7.6-11.0); Carbon Dioxide 22.1 mmol/L (21.0-32.0); Chloride 105 mmol/L (98-108); Creatinine, Serum 0.66 mg/dL (0.70-1.20); EST Glomerular Filtration Rate 88 (>60); Globulin 3.5 g/dL (2.2-4.2); Glucose 81 mg/dL (70-99); Protein, Total 6.1 g/dL (5.9-8.4); Sodium Level 137 mmol/L (133-145); Total Bilirubin 0.22 mg/dL (0.00-1.30)
== END ==
LOC: OLS.ACH 05:00
PROVIDERS: PCP Internal Medicine; Visit Provider Internal Medicine
DX: G93.89 Other specified disorders of brain (principal); S06.309D Unspecified focal traumatic brain injury with loss of consciousness of unspecified duration, subsequent encounter
CPT/HCPCS: 36415; 80053; 85027

== ENCOUNTER → 2024-09-26 | Outpatient (REF) | payer MEDICARE, SELFPAY ==
[2024-09-26 09:44] LABS: Hemoglobin A1c 5.8 % (<=5.6)
== END ==
LOC: OLS.ACH 04:00
PROVIDERS: PCP Internal Medicine; Referring Provider Internal Medicine; Visit Provider Internal Medicine
DX: E11.65 Type 2 diabetes mellitus with hyperglycemia (principal)
CPT/HCPCS: 36415; 83036

== ENCOUNTER → 2024-10-26 | Outpatient (REF) | payer MEDICARE, SELFPAY ==
[2024-10-26 08:15] LABS: Hematocrit 33.1 % (37-47); Hemoglobin 10.5 g/dL (12.0-15.0); Mean Corp Hgb Conc 31.7 g/dL (32-36); Mean Corpuscular Hgb 30.1 pg (27.0-32.0); Mean Corpuscular Volume 94.8 fL (81-99); Mean Platelet Vol. 10.6 fl (6.2-12.0); Platelet Count 328 K/mm3 (150-450); RBC Distribution Width CV 15.3 % (11.6-14.6); RBC Distribution Width SD 53.2 fl (35.1-43.9); Red Blood Count 3.49 M/mm3 (4.2-5.4); White Blood Count 9.9 K/mm3 (4.4-11.0)
[2024-10-26 08:38] LABS: Anion Gap 11 (5-15); BUN 20 mg/dL (4-19); BUN/Creat Ratio 51.9 RATIO (10-20); Calcium,Total 9.1 mg/dL (7.6-11.0); Carbon Dioxide 21.2 mmol/L (21.0-32.0); Chloride 102 mmol/L (98-108); Creatinine, Serum 0.39 mg/dL (0.70-1.20); EST Glomerular Filtration Rate 99 (>60); Glucose 114 mg/dL (70-99); Potassium 3.7 mmol/L (3.3-5.1); Sodium Level 135 mmol/L (133-145)
== END ==
LOC: OLS.ACH 05:00
PROVIDERS: PCP Internal Medicine; Visit Provider Internal Medicine
DX: R05.1 Acute cough (principal)
CPT/HCPCS: 36415; 80048; 85027

== ENCOUNTER → 2024-10-31 | Outpatient (REF) | payer MEDICARE, SELFPAY ==
--- OUTSIDE RECORDS SUMMARY | 2024-10-31 03:43 | XMS RPT_ITS | CCD ---
Author Organization [facility] CliniSymi Care Team Providers Care Blow Up Operator Name Role Phone ALLISON LEHMAN Unavailable Unavailable TALAMPAS, GUILLAUME Unavailable Unavailable TALAMPAS, GUILLAUME Unavailable Unavailable MORAIMA MONTELONGO Referring Unavailable Guillaume Dominguez MD Primary Care Provider Guillaume Dominguez MD Primary Care Provider Guillaume Dominguez MD Primary Care Provider Guillaume Dominguez MD Primary Care Provider MORAIMA MONTELONGO Attending Unavailable MORAIMA MONTELONGO Admitting Unavailable TALAMPJULIANNE, GUILLAUME Melody Primary Care Unavailable Patterson LEAD MINER.VENTILATION MECHANIC, Comfort Unavailable Flynn LEAD MINER.REMOTE SENSING RESEARCH SCIENTIST, Josefa Unavailable Flynn LEAD MINER.REMOTE SENSING RESEARCH SCIENTIST, Josefa Unavailable Analia, Guillaume Melody Primary Care Provider NWROSALINO, ENYINNA Attending Unavailable NWACH[place]U, ENYINNA Referring Unavailable TALAMPAS, GUILLAUME, Primary Care Unavailable TALAMPAS, GUILLAUME D Primary Care Unavailable [place], ENYINNA Attending Unavailable NIVIA VERMA Referring Unavailable TALAMPJULIANNE, GUILLAUME D Primary Care Unavailable Dr. Guillaume Dominguez MD Primary Care Provider Arden Leger MD Attending Provider Arden Leger MD Emergency Provider Jose De Jesus SCHMIDT, Deep Attending Provider Unavailable Jose De Jesus SCHMIDT, Deep Referring Provider Unavailable Flynn LEAD MINER.HIMA Josefa Unavailable Dr. Guillaume Dominguez MD Primary Care Provider Jose De Jesus SCHMIDT, Deep Attending Provider Unavailable TALAMPAS, GUILLAUME D Attending Unavailable TALAMPAS, GUILLAUME D Primary Care Unavailable ADINA LAY Attending Unavailable TALAMPAS, GUILLAUME D Primary Care Unavailable TALAMPAS, GUILLAUME D Referring Unavailable TALAMPAS, GUILLAUME D Primary Care Unavailable SU NASSAR Attending Unavailable TALAMPAS, GUILALUME D Primary Care Unavailable TALAMPAS, GUILLAUME D Primary Care Unavailable TALAMPAS, GUILLAUME D Attending Unavailable JOSEFA CAPUTO Attending Unavailable TALAMPAS, GUILLAUME D Primary Care Unavailable JOSEFA CAPUTO Referring Unavailable TALAMPAS, GUILLAUME D Primary Care Unavailable TALAMPAS, GUILLAUME D Primary Care Unavailable COMFORT PATTERSON Attending Unavailable TALAMPAS, GUILLAUME D Primary Care Unavailable ORALIA GARCIA Attending Unavailable Deperro OLS, Deep Attending Unavailable Talampas, Guillaume D Primary Care Unavailable Khoio YOKO, Deep Attending Unavailable Talampas, Guillaume D Primary Care Unavailable Bostonerro YOKO, Deep Attending Unavailable Talampas, Guillaume D Primary Care Unavailable Moraima Kang Attending Unavailable Talampas, Guillaume D Primary Care Unavailable Deperro YOKO, Deep Attending Unavailable Talampas, Guillaume D Primary Care Unavailable Bostonerro YOKO, Deep Attending Unavailable Talampas, Guillaume D Primary Care Unavailable Deperro YOKO, Deep Attending Unavailable Talampas, Guillaume D Primary Care Unavailable Talampas, Guillaume D Primary Care Unavailable Brooklyn Doran Attending Unavailable Wade Neely Attending Unavailable Michael, Allan Chi Admitting Unavailable Michael, Allan Chi Consulting Unavailable Talampas, Guillaume D Primary Care Unavailable Kerwin Ibanez Referring Unavailable Wade Neely Attending Unavailable Wade Neely Consulting Unavailable Su Veronica Admitting Unavailable Talampas, Guillaume D Primary Care Unavailable Su Veronica Consulting Unavailable Arron Cervantes Consulting Unavailable Deperro YOKO, Deep Attending Unavailable Talampas, Guillaume D Primary Care Unavailable Deperro YOKO, Deep Referring Unavailable Deperro YOKO, Deep Attending Unavailable Talampas, Guillaume D Primary Care Unavailable Khoio YOKO, Deep Referring Unavailable Deperro YOKO, Deep Attending Unavailable Talampas, Guillaume D Primary Care Unavailable Deperro OLS, Deep Referring Unavailable Deperro OLS, Deep Attending Unavailable Talampas, Guillaume D Primary Care Unavailable Deperro OLS, Deep Attending Unavailable Talampas, Guillaume D Primary Care Unavailable Deperro OLS, Deep Referring Unavailable Deperro OLS, Deep Attending Unavailable Talampas, Guillaume D Primary Care Unavailable Deperro OLS, Deep Attending Unavailable Talampas, Guillaume D Primary Care Unavailable Kerwin Ibanez Attending Unavailable Kerwin Ibanez Consulting Unavailable Arron Cervantes Attending Unavailable Kerwin Ibanez Attending Unavailable Wade Neely Consulting Unavailable Su Veronica Admitting Unavailable Talampas, Guillaume D Primary Care Unavailable Su Veronica Consulting Unavailable Arron Cervantes Consulting Unavailable Michael, Allan Chi Admitting Unavailable Michael, Allan Chi Attending Unavailable Talampas, Guillaume D Primary Care Unavailable NeelyWade Attending Unavailable Talampas, Guillaume D Referring Unavailable Talampas, Guillaume D Primary Care Unavailable Arden Leger Attending Unavailable Talampas, Guillaume D Primary Care Unavailable NeelyWade Attending Unavailable Talampas, Guillaume D Referring Unavailable Talampas, Guillaume D Primary Care Unavailable NeelyWade Attending Unavailable Talampas, Guillaume D Referring Unavailable Talampas, Guillaume D Primary Care Unavailable Jose Gant Attending Unavailable Talampas, Guillaume D Primary Care Unavailable Su Veronica Attending Unavailable Deperro OLS, Deep Attending Unavailable Talampas, Guillaume D Primary Care Unavailable Allergies Allergy Classification Reported Allergen(s) Allergy Type Date of Onset Reaction(s) Facility Angiotensin 2 Receptor Blockers (ARB) (2 sources) irbesartan Drug Allergy 5 Swelling [facility] Aspirin (2 sources) Aspirin Drug Allergy 2 Anaphylaxis [facility] Cephalosporins (antibiotic) (2 sources) Cephalexin Drug Allergy 2 Rash, Diarrhea [facility] Work Phone: Cholesterol Absorption Inhibitors (2 sources) ezetimibe Drug Allergy 5 [facility] egg extract (2 sources) egg extract Drug Allergy 7 Diarrhea [facility] exenatide (2 sources) exenatide Drug Allergy 7 [facility] HMG-CoA Reductase Inhibitors (statins) (8 sources) rosuvastatin Drug Allergy 5 [facility] Macrolides (antibiotic) (2 sources) Erythromycin Drug Allergy 8 Myalgia [facility] metFORMIN (2 sources) metFORMIN Drug Allergy 8 GI Upset [facility] Niacin (4 sources) Niacin Drug Allergy 5 Unknown [facility] NSAIDs (2 sources) Etodolac Drug Allergy 1 Contraindicati on-Medical Surgical [facility] Work Phone: Opioid Agonists (2 sources) HYDROcodone Drug Allergy 3 Itching [facility] Penicillins (antibiotic) (2 sources) Penicillins Drug Allergy 5 Rash [facility] Sulfonamides (antibiotic) (2 sources) Sulfonamides (Antibiotic) Drug Allergy 5 [facility] (20 sources) atorvastatin; Translations: [ATORVASTATIN] Drug Allergy 5 Unknown [facility] Repository (20 sources) egg extract; Translations: [EGG] Drug Allergy 7 Diarrhea [facility] Repository (20 sources) erythromycin; Translations: [ERYTHROMYCIN] Drug Allergy 8 Myalgia [facility] Repository (20 sources) etodolac; Translations: [ETODOLAC] Drug Allergy 1 Contraindicati on-Medical Surgical [facility] Repository (20 sources) exenatide; Translations: [EXENATIDE] Drug Allergy 7 Unknown [facility] Repository (20 sources) ezetimibe; Translations: [EZETIMIBE] Drug Allergy 5 Rash [facility] Repository (20 sources) irbesartan; Translations: [IRBESARTAN] Drug Allergy 5 Swelling [facility] Repository (20 sources) niacin; Translations: [NIACIN (ANTIHYPERLIPIDE VERN)] Drug Allergy 5 [facility] Repository (20 sources) NSAIDs; Translations: [NSAIDS (NON-STEROIDAL ANTI-INFLAMMATOR Y DRUG)] Propensity to adverse reactions (disorder) 1 Other: See Comments, Intolerance [facility] Repository (20 sources) Penicillins; Translations: [PENICILLINS] Propensity to adverse reactions (disorder) 5 Rash [facility] Repository (20 sources) pravastatin; Translations: [PRAVASTATIN SODIUM] Drug Allergy 5 [facility] Repository (20 sources) rosuvastatin; Translations: [ROSUVASTATIN CALCIUM] Drug Allergy 5 [facility] Repository (20 sources) salicylic acid; Translations: [SALICYLATES] Drug Allergy 5 Anaphylaxis [facility] Repository (20 sources) simvastatin; Translations: [SIMVASTATIN] Drug Allergy 5 Rash [facility] Repository (20 sources) Sulfonamides (Antibiotic); Translations: [SULFA (SULFONAMIDE ANTIBIOTICS)] Propensity to adverse reactions (disorder) 5 Rash [facility] Repository (3 sources) OTHER; Translations: [OTHER] Propensity to adverse reactions (disorder) 9 [facility] Repository (20 sources) metFORMIN; Translations: [METFORMIN] Drug Allergy 8 GI Upset [facility] Repository (20 sources) Niacin; Translations: [NIACIN] Drug Allergy 5 Unknown [facility] Repository (20 sources) duoderm [Other] Propensity to adverse reactions 9 [facility] Work Phone: (20 sources) ointments [Other] Propensity to adverse reactions 9 [facility] (20 sources) tape [Other] Propensity to adverse reactions 8 [facility] (20 sources) Adhesive agent; Translations: [ADHESIVE] Allergy to substance 2 Itching [facility] (20 sources) Aspirin; Translations: [ASPIRIN] Drug Allergy 2 Anaphylaxis [facility] (3 sources) Egg Propensity to adverse reactions 2 Diarrhea [facility] Work Phone: (9 sources) Erythromycin Drug Allergy 2 Other [facility] (9 sources) Nonsteroidal Anti-inflammator y Compounds Propensity to adverse reactions 2 Other [facility] (9 sources) Pravastatin Drug Allergy 2 Rash [facility] (9 sources) rosuvastatin Drug Allergy 2 Unknown [facility] (9 sources) Ifco[employer]e-Uke-Nfc Reductase Inhibitor Allergy to substance 2 Other [facility] (3 sources) duoderm Allergy to substance 2 Rash [facility] Work Phone: (3 sources) ointments Allergy to substance 2 Rash [facility] Work Phone: (20 sources) Cephalexin; Translations: [CEPHALEXIN] Drug Allergy 2 Rash, Diarrhea [facility] Work Phone: (20 sources) HYDROcodone; Translations: [HYDROCODONE] Drug Allergy 3 Itching [facility] Work Phone: (7 sources) Dressing: Non-Medicated; Translations: [Dressing: Non-Medicated] Allergy to substance 3 Rash [facility] Comment on above: duoderm (20 sources) Adhesive Tape-Silicones; Translations: [ADHESIVE TAPE-SILICONES] Drug Intolerance 4 Itching [facility] Work Phone: (20 sources) oxyCODONE; Translations: [OXYCODONE] Drug Allergy 4 Mental Status Change, Itching [facility] Comment on above: per family (1 source) Aspirin Drug Allergy 4 [facility] Repository (1 source) HYDROcodone Drug Allergy 4 [facility] Repository (1 source) oxyCODONE Drug Allergy 4 [facility] Repository (1 source) Pravastatin Drug Allergy 4 [facility] Repository (1 source) rosuvastatin Drug Allergy 4 [facility] Repository (1 source) NSAIDS (Non-Steroidal Anti-Inflamma Drug allergy (disorder) 4 [facility] Repository (1 source) Yaqoogu-Pod-Urq Reductase Inhibitor Drug allergy (disorder) 4 [facility] Repository (1 source) erythromycin base Drug allergy (disorder) 4 [facility] Repository Medications Current Medications Medication Drug Class(es) Dates Sig (Normalized) Sig (Original) acetaminophen 325 mg oral tablet (20 sources) Start: 05-19-2024 take 3 tablets by mouth every eight hours acetaminophen (TYLENOL) 325 mg tablet Take 3 tablets by mouth every 8 hours. 05/19/2024 Active Start: 02-01-2024 take 1-10 tablets by mouth every eight hours as needed for pain Acetaminophen 500 mg Tablet Active 1000 mg PO EVERY 8 HOURS as needed for Pain 1-10 Or Fever 0 February 01, 2024 12:00am Start: 01-12-2024 End: 02-01-2024 take 1-0.5 tablets by mouth every six hours as needed for pain Acetaminophen 500 mg Tablet Discontinued 500 mg PO EVERY 6 HOURS as needed for Pain 1-5/10 Or Fever 0 January 12, 2024 12:00am February 01, 2024 9:00pm Start: 05-06-2022 End: 05-06-2022 acetaminophen 1,000 mg tab(s ) (TYLENOL) Start: 03-31-2019 End: 01-12-2024 take 1 tablet by mouth at bedtime Acetaminophen 500 MG tablet Discontinued 500 mg PO AT BEDTIME March 31, 2019 12:00am January 12, 2024 2:44pm Start: 03-31-2019 take 500 mg by mouth at bedtim e Acetaminophen Active 500 MG PO AT BEDTIME March 30, 2019 11:00pm End: 05-19-2024 take 2 tablets by mouth every eight hours as needed acetaminophen (TYLENOL) 500 mg tablet Take 1,000 mg by mouth every 8 hours as needed for pain. 05/19/2024 Discontinued Comment on above: Take 500 mg by mouth daily at bedtime. ascorbic acid 500 mg oral tablet (20 sources) Vitamin C Start: 9 take 1 tablet by mouth once daily Ascorbic Acid (Vitamin C) 500 MG tablet Active 500 mg PO DAILY March 31, 2019 12:00am Comment on above: Take 500 mg by mouth once daily. calcitriol 0.0005 mg oral capsule (20 sources) Vitamin D3 Analog Start: 5 End: 4 take 1 capsule by mouth once daily Calcitriol 0.5 MCG capsule Active 0.5 ug PO DAILY March 04, 2015 12:00am Comment on above: Take 1 capsule by [facility] once daily. calcium carbonate 500 mg chewable tablet (20 sources) Start: take 1 tablet by mouth every four hours as needed Calcium Carbonate 200 mg calcium (500 mg) Tablet,Chewable Active 500 mg PO EVERY 4 HOURS NEEDED as needed for Indigestion 0 February 01, 2024 12:00am calcium carbonate 1500 mg / cholecalciferol 200 unt oral tablet (20 sources) Vitamin D Start: Calcium Carbonate-Vitamin D3 1 EACH tablet Active 2 {tbl} PO DAILY March 31, 2019 12:00am Start: 03-31-2019 Calcium Carbon ate-Vitamin D3 Active 1 EACH PO THREE TIMES A DAY March 30, 2019 11:00pm take 2 tablets by mo ut once daily in the morning Calcium-Cholecalciferol, D3, (CALCIUM 600 + D,3,) 600 mg-5 mcg (200 unit) cap Take 2 tablets by mouth every morning. Active cholecalciferol 0.05 mg oral capsule (3 sources) Vitamin D Start: 01-10-2024 take 1 capsule by mouth once daily Cholecalciferol (Vitamin D3) 50 mcg (2,000 unit) capsule Active 100 ug PO DAILY January 10, 2024 12:00am clobetasol propionate 0.5 mg/ml topical cream (20 sources) Corticosteroid Start: 02-01-2024 Clobetasol 0.05 % Cream Active 1 NMA TOPICAL TWICE A DAY 0 February 01, 2024 12:00am Please contact the information source for Protocol details. Start: 07-29-2023 End: 05-07-2024 Clobetasol Propionate (CLOBE X) 0.05 % sham Shampoo twice a week with therapeutic shampoo for itching 118 mL 4 07/29/2023 05/07/2024 Discontinued (Adjust Sig - Block E-Cancel) Start: 01-14-2022 End: 02-19-2023 clobetasol (TEMOVATE) 0.05 % cream Indications: Lichen sclerosus et atrophicus 3x per day for 2 weeks and then twice daily thereafter 60 g 4 02/19/2023 Active Start: 06-12-2021 End: 01-14-2022 clobetasol (TEMOVATE) 0.05 % cream Indications: Lichen sclerosus et atrophicus Apply thin layer to affected area twice daily for 6-12 weeks 30 g 4 06/12/2021 01/14/2022 Discontinued Start: 10-23-2020 End: 01-14-2022 clobetasol (TEMOVATE) 0.05 % cream Indications: Lichen sclerosus et atrophicus Apply thin layer to affected area twice daily for 6-12 weeks 60 g 4 10/23/2020 01/14/2022 Discontinued Start: 03-31-2019 End: 01-10-2024 Clobetasol-Emollient 15 GM c ream Discontinued 1 NMA TP AT BEDTIME March 31, 2019 12:00am January 10, 2024 11:26pm Start: 03-31-2019 Clobetasol-Emo llient Active 1 APPLIC TP AT BEDTIME March 30, 2019 11:00pm Comment on above: Apply thin layer to affected area twice daily for 6-12 weeks 3x per day for 2 wee ks and then twice daily thereafter Shampoo twice a week with therapeutic shampoo for itching docusate sodium 50 mg / sennosides, snf 8.6 mg oral tablet (20 sources) Start: End: Sennosides-Docusat e Sodium (Stimulant Laxative Plus) 8.6-50 mg Tablet Active 1 {tbl} PO TWICE A DAY 0 February 01, 2024 12:00am DULoxetine 20 mg delayed release oral capsule (20 sources) Serotonin and Norepinephrine Reuptake Inhibitor Start: take 2 capsules by mouth once daily Duloxetine (Cymbalta) 20 mg capsule,delayed release(DR/EC) Active 40 mg PO DAILY January 10, 2024 12:00am Start: 08-13-2023 End: 08-16-2023 take 1 capsule by mouth once daily DULoxetine (CYMBALTA) 40 mg cpDR Indications: Anxiety disorder, unspecified type , Radiculopathy, lumbar region , Chronic SI joint pain Take 1 capsule by mouth once daily. 90 capsule 2 08/13/2023 08/16/2023 Discontinued Start: 12-02-2022 End: 08-13-2023 take 1 capsule by mouth once daily DULoxetine (CYMBALTA) 20 mg capsule Indications: Anxiety disorder, unspecified type , Radiculopathy, lumbar region , Chronic SI joint pain take 1 capsule by mouth once daily 90 capsule 2 12/02/2022 08/13/2023 Discontinued Start: 10-27-2022 take 1 capsule by mo [facility] once daily DULoxetine (CYMBALTA) 20 mg capsule Indications: Anxiety disorder, unspecified type , Radiculopathy, lumbar region , Chronic SI joint pain Take 1 capsule by mouth once daily. 30 capsule 2 10/27/2022 Active Comment on above: Take 1 capsule by mo [facility] once daily. take 1 capsule by mo [facility] once daily Take 2 capsules by m [facility] once daily. ferrous sulfate 325 mg oral tablet (20 sources) Start: 01-10-2024 take 1 tablet by mouth once daily Ferrous Sulfate (Iron (Ferrous Sulfate)) 325 mg (65 mg iron) tablet Active 325 mg PO DAILY January 10, 2024 12:00am Start: 01-19-2022 End: 03-23-2022 take 1 tablet by mouth once daily ferrous sulfate 325 mg (65 mg iron) tablet Indications: Iron deficiency Take 1 tablet by mouth once daily. 30 tablet 03/23/2022 Active Comment on above: Take 1 tablet by [facility] once daily. 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 Two (2) X 200 mg tablets = 400 mg 2-3 times a week 36 tablet 3 06/12/2021 10/21/2021 Discontinued Start: 11-04-2020 End: 01-14-2022 fluconazole (DIFLUCAN) 200 m g tablet TAKE 1 TABLET BY MOUTH EVERY 3 TO 4 DAYS FOR 2 MONTHS 32 tablet 3 11/04/2020 01/14/2022 Discontinued Comment on above: TAKE 1 TABLET BY [facility] EVERY 3 TO 4 DAYS FOR 2 MONTHS Take 2 tablets by mo [facility] every 72 hours. Two (2) X 200 mg tablets = 400 mg 2-3 times a week TAKE 1 TABLET 3x per week hydrALAZINE hydrochloride 10 mg oral tablet (8 sources) Arteriolar Vasodilator Start: 02-01-20 End: 05-19-20 take 1 tablet by mouth three times daily Hydralazine 10 mg Tablet Active 10 mg PO THREE TIMES A DAY 0 February 01, 2024 12:00am lactobacillus acidophilus [id number] unt oral capsule (13 sources) lactobacillus acidophilus 100 mg (1 billion cell) cap(s) Take 1 capsule by mouth once daily. Biotinex ([facility] probiotic) Active lidocaine 0.05 mg/mg medicated patch (20 sources) Antiarrhythmic, Amide Local Anesthetic Start: 02-01-20 Lidocaine 5 % Adhesive Patch,Medicated Active 2 NMA TOPICAL DAILY 0 February 01, 2024 12:00am Please contact the information source for Protocol details. Start: 06-12-2019 End: 03-15-2022 lidocaine (XYLOCAINE) 2 % je lly Indications: Vulvar pain FOR EXTERNAL USE ONLY.APPLY TO: vulva three times daily as needed 30 mL 3 06/12/2019 03/15/2022 Discontinued Start: 03-31-2019 End: 01-10-2024 Lidocaine Hcl 1 APPLIC jelly Discontinued 1 NMA TP THREE TIMES A DAY March 31, 2019 12:00am January 10, 2024 11:25pm apply 1 dose transde rmal route every twenty-four hours lidocaine (DERMACINRX LIDOCAN) 5 % Apply 1 Patch as directed every 24 hours. Left hip Suspended Comment on above: FOR EXTERNAL USE ONL Y.APPLY TO: vulva three times daily as needed loratadine 10 mg oral tablet (20 sources) Start: 01-10-20 take 1 tablet by mouth once daily Loratadine (Claritin) 10 mg tablet Active 10 mg PO DAILY January 10, 2024 12:00am magnesium citrate 58.2 mg/ml oral solution (20 sources) Start: 02-01-20 take 1 mL by mouth once daily as needed for constipation Magnesium Citrate Solution Active 300 mL PO DAILY as needed for Constipation 0 February 01, 2024 12:00am melatonin 3 mg oral tablet (20 sources) Start: 05-19-20 take 2 tablets by mouth once daily at bedtime melatonin 3 mg tablet Take 2 tablets by mouth daily at bedtime. 05/19/2024 Active Start: 02-01-2024 End: 05-19-2024 take 1 tablet by mouth at bedtime Melatonin 10 mg Tablet, Sublingual Active 10 mg PO AT BEDTIME 0 February 01, 2024 12:00am Start: 01-10-2024 End: 05-07-2024 take 10 mg by mouth once daily at bedtime melatonin 3 mg capsules Take 10 mg by mouth daily at bedtime. 01/10/2024 05/07/2024 Discontinued (Adjust Sig - Block E-Cancel) Start: 01-10-2024 End: 02-01-2024 take 1 capsule by mouth at bedtime Melatonin 3 mg capsule Discontinued 3 mg PO AT BEDTIME January 10, 2024 12:00am February 01, 2024 9:02pm Menthol / Zinc Oxide (3 sources) Start: 02-01-2024 Menthol-Zinc O xide (Calmoseptine) 0.44-20.6 % Ointment Active 1 NMA TOPICAL TWICE A DAY 0 February 01, 2024 12:00am Please contact the information source for Protocol details. metoprolol tartrate 25 mg oral tablet (20 sources) beta-Adrenergic [place] Start: 05-19-2024 take 0.5 tablet by mouth every six hours metoprolol tartrate, short acting, (LOPRESSOR) 25 mg tablet Take 0.5 tablets by mouth every 6 hours. 05/19/2024 Active Start: 08-15-2022 End: 04-28-2024 take 1 tablet by mouth once daily metoprolol succinate ER (TOPROL XL) 25 mg 24 hr tablet Take 1 tablet by mouth once daily. 90 tablet 3 06/27/2023 04/28/2024 Discontinued Start: 12-05-2021 End: 07-23-2022 take 0.5 tablet by mouth once daily metoprolol succinate ER (TOPROL XL) 25 mg 24 hr tablet Take 0.5 tablets by mouth once daily. 90 tablet 3 01/19/2022 07/23/2022 Discontinued metoprolol tartr ate, short acting, (LOPRESSOR) 25 mg tablet Take 25 mg by mouth as needed (HTN). Give BID for SBP >140 or DBP >100 Suspended Comment on above: Take 1 tablet by once daily. Take 0.5 tablets by mouth once daily. Take 0.5-1 tablets b y mouth once daily. As directed morphine sulfate 20 mg/ml oral solution (10 sources) Opioid Agonist Start: 02-01-2024 Morphine Concentrate 10 mg/0.5 mL Syringe Active 10 mg SL EVERY 2 HOURS NEEDED as needed for Pain Score 6-10 18 3 February 01, 2024 Start: 02-28-2022 End: 01-10-2024 take 1 tablet by mouth three times daily as needed for pain Morphine (Ms Contin) 15 mg tablet extended release Discontinued 15 mg PO 3 TIMES DAILY NEEDED as needed for pain 15 5 February 28, 2022 January 10, 2024 11:25pm Multivitamin With Minerals (6 sources) Start: 03-31-2019 Multivitamin W ith Minerals Active 1 EACH PO DAILY March 30, 2019 11:00pm Start: 03-31-2019 Multivitamin W ith Minerals Active 1 EACH PO DAILY March 31, 2019 12:00am Multivitamin With Minerals 1 EACH tablet (3 sources) Start: 03-31-2019 take 1 tablet by mouth once daily Multivitamin With Minerals 1 EACH tablet Active 1 NMA PO DAILY March 31, 2019 12:00am nitrofurantoin, macrocrystals 25 mg / nitrofurantoin, monohydrate 75 mg oral capsule (8 sources) Nitrofuran Antibacterial Start: 05-19-2024 End: 05-25-2024 take 1 capsule by mouth twice daily at mealtime nitrofurantoin monohydrate and macrocrystal (MACROBID) 100 mg capsule Take 1 capsule by mouth two times a day with meals for 12 doses. 12 capsule 05/19/2024 05/25/2024 Active Start: 01-10-2024 End: 02-01-2024 take 1 capsule by mouth twice daily Nitrofurantoin Monohyd/M-Cryst 100 mg capsule Discontinued 1 NMA PO TWICE A DAY January 10, 2024 12:00am February 01, 2024 9:03pm Start: 06-20-2022 End: 06-27-2022 take 1 capsule by mouth twice daily nitrofurantoin monohydrate and macrocrystal (MACROBID) 100 mg capsule Take 1 capsule by mouth twice daily for 7 days. 14 capsule 0 06/20/2022 06/27/2022 Active Comment on above: Take 1 capsule by [facility] twice daily for 7 days. 24 hr oxybutynin chloride 10 mg extended release oral tablet (20 sources) Cholinergic Muscarinic Antagonist Start: take 1 tablet by mouth every twenty-four hours at bedtime Oxybutynin Chloride 10 MG tablet extended release 24hr Active 10 mg PO AT BEDTIME March 31, 2019 12:00am Start: 03-31-2019 End: 09-17-2023 take 1 tablet by mouth once daily oxybutynin ER (DITROPAN XL) 10 mg 24 hr tablet Take 1 tablet by mouth once daily. 90 tablet 1 09/17/2023 Active Comment on above: Take 1 tablet by [facility] once daily as needed. OVERACTIVE BLADDER take 1 tablet by [facility] once daily if needed for OVERACTIVE BLADDER Take 1 tablet by [facility] once daily. perflutren lipid microspheres 1.3 mL in NaCl (PF) 0.9% 10 mL injection (DEFINITY) (20 sources) Start: 01-11-2023 End: 04-11-2024 perflutren lipid microspheres 1.3 mL in NaCl (PF) 0.9% 10 mL injection (DEFINITY) Start: 10-07-2021 End: 05-28-2022 perflutren lipid microsphere s 1.3 mL in NaCl (PF) 0.9% 10 mL injection (DEFINITY) Start: 10-07-2021 End: 01-06-2023 perflutren lipid microsphere s 1.3 mL in NaCl (PF) 0.9% 10 mL injection (DEFINITY) polyethylene glycol 3350 83077 mg powder for oral solution (12 sources) Osmotic Laxative Start: 05-19-2024 polyethylene glycol 3350 17 gram packet Take 1 Packet by mouth once daily. Dissolve dose in 4 - 8 ounces of liquid and take as directed. 05/19/2024 Active 125 ml sodium chloride 9 mg/ml prefilled syringe (20 sources) Start: 01-11-2023 End: 04-11-2024 sodium chloride 0.9 % (flush) 10 mL (BD POSIFLUSH) Start: 10-07-2021 End: 01-06-2023 sodium chloride 0.9 % (flush ) 10 mL (BD POSIFLUSH) therapeutic multivitamin-min erals (THERA-M PLUS) 9 mg iron-400 mcg tablet (13 sources) therapeutic mult ivitamin-minerals (THERA-M PLUS) 9 mg iron-400 mcg tablet Take 1 tablet by mouth once daily. Active therapeutic mult ivitamin-minerals (THERA-M PLUS) 9 mg iron-400 mcg tablet Take 1 tablet by mouth once daily. Suspended tirzepatide (MOUNJARO) 2.5 mg/0.5 mL pen injector (20 sources) Start: 08-16-2024 inject 2.5 mg by subcutaneous injection every week tirzepatide (MOUNJARO) 2.5 mg/0.5 mL pen injector Inject 2.5 mg subcutaneously one time a week. 4 Each 08/16/2024 Active Start: 10-23-2022 inject 2.5 mg by sub cutaneous injection every week tirzepatide (MOUNJARO) 2.5 mg/0.5 mL pen injector Inject 2.5 mg subcutaneously one time a week. 4 Each 10/23/2022 Active Comment on above: Inject 2.5 mg subcut aneously one time a week. Tirzepatide (Mounjaro) 5 mg/0.5 mL pen injector (3 sources) Start: 01-10-20 Tirzepatide (Mounjaro) 5 mg/0.5 mL pen injector Active 5 mg SC EVERY WEEK January 10, 2024 12:00am Give every Wednesday. Patient to provide own medication. traMADol hydrochloride 50 mg oral tablet (11 sources) Opioid Agonist Start: 02-01-20 End: 05-19-20 take 1 tablet by mouth every six hours as needed for pain Tramadol 50 mg Tablet Active 50 mg PO EVERY 6 HOURS NEEDED as needed for Pain Score 1-5 Or Pre Pt/Ot 05 02February 01, 2024 12:00am Start: 12-24-2023 End: 12-31-2023 take 1 tablet by mouth twice daily as needed for pain traMADol (ULTRAM) 50 mg tablet Indications: Acute pain of right knee Take 1 tablet by mouth two times a day as needed for pain for up to 7 days. 14 tablet 0 12/24/2023 12/31/2023 Active vitamin b12 1 mg/ml injectable solution (20 sources) Vitamin B12 Start: 11-11-2023 inject 1 mL by intramuscular injection every month cyanocobalamin 1,000 mcg/mL Inject 1 mL intramuscularly once every month. To be administered at [facility] by nurse 1 mL 12 11/11/2023 Active Start: 03-31-2019 inject 1000 ug by in tramuscular injection every 30 days Cyanocobalamin (Vitamin B-12) 1,000 MCG/ML solution Active 1000 ug IM Q30D March 31, 2019 12:00am Start: 03-31-2019 End: 01-29-2024 cyanocobalamin 1,000 mcg inj ection Completed/Discontinued Medications Medication Drug Class(es) Dates Sig (Normalized) Sig (Original) acetaminophen 325 mg / HYDROcodone bitartrate 5 mg oral tablet (20 sources) Opioid Agonist Start: 05-21-2022 End: 01-10-2024 Hydrocodone-Acetami nophen 5-325 mg tablet Discontinued 1 {tbl} PO EVERY 4 HOURS NEEDED as needed for Pain 15 May 21, 2022 January 10, 2024 11:26pm Start: 05-21-2022 take 1 tablet by [facility] every four hours as needed Hydrocodone-Acetaminophen Active 1 TABLE T PO EVERY 4 HOURS NEEDED 15 May 21, 2022 Start: 03-25-2020 End: 05-08-2022 take 1 tablet by mouth every six hours as needed for pain HYDROcodone-Acetaminophen (NORCO) 7.5-32 5 mg per tablet Indications: Lumbar strain, subsequent encounter , Lumbar degenerative disc disease , Generalized OA , Left hip pain Take 1 tablet by mouth every 6 hours as needed for Pain for up to 7 days. 28 tablet 03/25/2020 05/08/2022 Discontinued Start: 03-31-2019 End: 01-10-2024 Hydrocodone-Acetaminophen 1 EACH tablet Discontinued 1 NMA PO 4 TIMES DAILY NEEDED as needed for Pain Or Fever March 31, 2019 12:00am January 10, 2024 11:26pm Start: 03-31-2019 Hydrocodone-Ac etaminophen Active 1 EACH PO 4 TIMES DAILY NEEDED March 30, 2019 11:00pm Comment on above: Take 1 tablet by [facility] every 6 hours as needed for Pain for up to 7 days. ALPRAZolam 1 mg oral tablet (2 sources) Benzodiazepine Start: 07-07-19 End: 07-11-19 23 ALPRAZolam (XANAX) 1 mg tablet Indications: Spondylolisthesis of lumbar region , Open compression fracture of L1 lumbar vertebra with routine healing, subsequent encounter , Anxiety disorder, unspecified type Take 1 hour prior to MRI; may take another half to whole pill 15 minutes prior to MRI if still needed 2 tablet 0 07/07/2022 07/11/2022 Comment on above: Take 1 hour prior to MRI; may take another half to whole pill 15 minutes prior to MRI if still needed apixaban 5 mg oral tablet (20 sources) Factor Xa Inhibitor Start: 08-28-19 End: 05-06-20 24 take 1 tablet by mouth twice daily apixaban (ELIQUIS) 5 mg tab(s) Take 1 tablet by mouth two times a day. 60 tablet 11 10/29/2023 05/06/2024 Discontinued (Side Effects) Start: 08-27-2020 take 2 tablets by [facility] twice daily, then take 1 tablet by mouth twice daily Apixaban 5 MG tablet Active 5 mg PO TWICE A DAY August 27, 2020 12:00am 10 mg twice a day for the first week. Then 5 mg twice a day. Start: 08-27-2020 take 10 mg by mouth twice daily, then take 5 mg by mouth twice daily Apixaban Active 5 MG PO TWICE A DAY August 26, 2020 11:00pm 10 mg twice a day for the first week. Then 5 mg twice a day. Comment on above: Take by mouth. Take [address] [facility] twice daily. biotin 2.5 mg oral capsule (20 sources) Start: 03-31-2019 End: 02-01-2024 take 1 capsule by mouth once daily Biotin 2,500 MCG capsule Discontinued 2500 ug PO DAILY March 31, 2019 12:00am February 01, 2024 9:01pm Start: 01-18-2008 End: 05-07-2024 take 1 tablet by mouth once daily BIOTIN 2,500 MCG TAB Take 2,500 mcg by mouth once daily. 0 01/18/2008 05/07/2024 Discontinued (Adjust Sig - Block E-Cancel) Comment on above: Take 2,500 mcg by [facility] once daily. Blood-Glucose Meter, Drum-type (ACCU-CHEK COMPACT PLUS CARE) kit (20 sources) Start: 11-30-2018 End: 11-27-2022 Blood-Glucose Meter, Drum-type (ACCU-CHEK COMPACT PLUS CARE) kit USE DIRECTED. 1 Kit 11/30/2018 11/27/2022 Discontinued Start: 11-30-2018 End: 11-27-2022 Blood-Glucose Meter, Drum-ty pe (ACCU-CHEK COMPACT PLUS CARE) kit USE DIRECTED. 1 Kit 0 11/30/2018 11/27/2022 Discontinued Start: 11-30-2018 Blood-Glucose Meter, Drum-type (ACCU-CHEK COMPACT PLUS CARE) kit USE DIRECTED. 1 Kit 0 11/30/2018 Active Comment on above: USE DIRECTED. Blood-Glucose Meter,Continuous (DEXCOM G7 STREETCAR CONDUCTOR) misc (20 sources) Start: 01-08-2023 End: 08-11-2023 Blood-Glucose Meter,Continuous (DEXCOM G7 STREETCAR CONDUCTOR) misc Indications: Type 2 diabetes mellitus with peripheral neuropathy (HCC) use to check sugars 1 Each 0 01/08/2023 08/11/2023 Discontinued Start: 01-08-2023 Blood-Glucose Meter,Continuous (DEXCOM G7 STREETCAR CONDUCTOR) misc Indications: Type 2 diabetes mellitus with peripheral neuropathy (HCC) use to check sugars 1 Each 0 01/08/2023 Active Start: 12-30-2022 End: 01-05-2023 Blood-Glucose Meter,Continuo us (DEXCOM G7 STREETCAR CONDUCTOR) misc use to check sugars 1 Each 0 12/30/2022 01/05/2023 Discontinued Start: 12-30-2022 Blood-Glucose Meter,Continuous (DEXCOM G7 STREETCAR CONDUCTOR) misc use to check sugars 1 Each 0 12/30/2022 Active Comment on above: use to check sugars Blood-Glucose Sensor (DEXCOM G7 SENSOR) isela (20 sources) Start: 01-08-2023 End: 08-11-2023 Blood-Glucose Sensor (DEXCOM G7 SENSOR) isela Indications: Type 2 diabetes mellitus with peripheral neuropathy (HCC) change every 10 days 9 Each 3 01/08/2023 08/11/2023 Discontinued Start: 01-08-2023 Blood-Glucose Sensor (DEXCOM G7 SENSOR) isela Indications: Type 2 diabetes mellitus with peripheral neuropathy (HCC) change every 10 days 9 Each 3 01/08/2023 Active Start: 12-30-2022 End: 01-05-2023 Blood-Glucose Sensor (DEXCOM G7 SENSOR) isela change every 10 days 9 Each 3 12/30/2022 01/05/2023 Discontinued Start: 12-30-2022 Blood-Glucose Sensor (DEXCOM G7 SENSOR) isela change every 10 days 9 Each 3 12/30/2022 Active Comment on above: change every 10 days Blood-Glucose Sensor (FREESTYLE CAR 3 SENSOR) isela (1 source) Start: 12-30-2022 End: 12-30-2022 Blood-Glucose Sensor (FREESTYLE CAR 3 SENSOR) isela change every 2 weeks 2 Each 11 12/30/2022 12/30/2022 Discontinued Comment on above: change every 2 weeks busPIRone hydrochloride 7.5 mg oral tablet (17 sources) Start: 03-28-2024 End: 08-03-2024 take 1 tablet by mouth twice daily busPIRone (BUSPAR) 7.5 mg tablet Take 7.5 mg by mouth two times a day. 03/28/2024 08/03/2024 Discontinued Start: 02-01-2024 take 7.5 mg by mouth twice juhi ly Buspirone 15 mg Tablet Active 7.5 mg PO TWICE A DAY 0 February 01, 2024 12:00am CALCIUM CITRATE/VITAMIN D3 (CALCIUM CITRATE + D ORAL) (20 sources) End: 05-07-2024 take 1 capsule by mouth three times daily CALCIUM CITRATE/VITAMIN D3 (CALCIUM CITRATE + D ORAL) Take 1 capsule by mouth three times daily. 05/07/2024 Discontinued (Adjust Sig - Block E-Cancel) take 1 capsule by mo [facility] three times daily CALCIUM CITRATE/VITAMIN D3 (CALCIUM CITR ATE + D ORAL) Take 1 capsule by mouth three times daily. Active take 1 capsule by mo [facility] three times daily CALCIUM CITRATE/VITAMIN D3 (CALCIUM CITR ATE + D ORAL) Take 1 capsule by mouth three times daily. 0 Active Comment on above: Take 1 capsule by mo [facility] three times daily. cefdinir 300 mg oral capsule (2 sources) Cephalosporin Antibacterial Start: 2 End: 2 take 1 capsule by mouth twice daily cefdinir (OMNICEF) 300 mg capsule Take 1 capsule by mouth twice daily for 10 days. 20 capsule 0 05/11/2022 05/21/2022 Comment on above: Take 1 capsule by mo [facility] twice daily for 10 days. cephalexin 500 mg oral capsule (5 sources) Cephalosporin Antibacterial Start: 2 End: 2 take 1 capsule by mouth three times daily cephALEXin (KEFLEX) 500 mg capsule Indications: Open fracture of tuft of distal phalanx of finger Take 1 capsule by mouth three times daily for 10 days. 30 capsule 0 05/06/2022 05/16/2022 Start: 12-17-2021 End: 12-24-2021 take 1 capsule by mouth twice daily cephALEXin (KEFLEX) 500 mg capsule Take 1 capsule by mouth twice daily for 7 days. 14 capsule 0 12/17/2021 12/24/2021 Active Comment on above: Take 1 capsule by [facility] twice daily for 7 days. Take 1 capsule by [facility] three times daily for 10 days. cetirizine hydrochloride 10 mg oral capsule (9 sources) Histamine-1 Receptor Antagonist Start: 03-31-20 End: 01-10-20 24 take 1 capsule by mouth once daily Cetirizine 10 MG capsule Discontinued 10 mg PO DAILY March 31, 2019 12:00am January 10, 2024 11:17pm chlorhexidine gluconate 40 mg/ml medicated liquid soap (20 sources) Start: 06-12-19 End: 05-07-20 24 chlorhexidine (HIBICLENS) 4 % external liquid Indications: 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 Wash genitale area once a day for infectious vulvitis 473 mL 11 08/11/2023 05/07/2024 Discontinued (Adjust Sig - Block E-Cancel) Comment on above: Wash genitale area o nce a day for infectious vulvitis cholecalciferol, vitamin D3, (VITAMIN D3 ORAL) (20 sources) End: 05-07-20 24 cholecalciferol, vitamin D3, (VITAMIN D3 ORAL) Take by mouth once daily. 05/07/2024 Discontinued (Adjust Sig - Block E-Cancel) cholecalciferol, vitamin D3, (VITAMIN D3 ORAL) Take by mouth once daily. Active cholecalciferol, vitamin D3, (VITAMIN D3 ORAL) Take by mouth once daily. 0 Active Comment on above: Take by mouth once d aily. ciprofloxacin 500 mg oral tablet (20 sources) Quinolone Antimicrobial Start: 05-21-20 End: 01-10-20 take 1 tablet by mouth twice daily Ciprofloxacin Hcl 500 mg tablet Discontinued 500 mg PO TWICE A DAY May 21, 2022 1:00am January 10, 2024 11:27pm Start: 01-28-2022 End: 02-27-2022 take 1 tablet by mouth twice daily ciprofloxacin HCl (CIPRO) 500 mg tablet Take 1 tablet by mouth twice daily. 60 tablet 0 01/28/2022 02/27/2022 Start: 01-14-2022 End: 01-19-2022 take 1 tablet by mouth twice daily ciprofloxacin HCl (CIPRO) 250 mg tablet Take 1 tablet by mouth twice daily for 5 days. 10 tablet 0 01/14/2022 01/19/2022 Active Comment on above: Take 1 tablet by [facility] twice daily for 5 days. Take 1 tablet by [facility] twice daily. clindamycin 300 mg oral capsule (20 sources) Lincosamide Antibacterial Start: End: take 2 capsules by mouth every hour clindamycin (CLEOCIN) 300 mg capsule take 2 capsules by mouth 1 hour prior to appointment 08/28/2022 05/07/2024 Discontinued (Adjust Sig - Block E-Cancel) Comment on above: take 2 capsules by m out 1 hour prior to appointment diphenhydrAMINE hydrochloride 25 mg oral capsule (20 sources) Histamine-1 Receptor Antagonist End: take 1 capsule by mouth once daily at bedtime diphenhydrAMINE (BENADRYL) 25 mg capsule Take 25 mg by mouth daily at bedtime. 05/19/2024 Discontinued diphenhydramine HCl (BENADRYL ORAL) Take 1 tablet by mouth as needed (At bedtime). Active diphenhydramine HCl (BENADRYL ORAL) Take 1 tablet by mouth as needed (At bedtime). 0 Active diphenhydramine HCl (BENADRYL ORAL) Take by mouth daily at bedtime. 0 Active Comment on above: Take by mouth daily at bedtime. Take 1 tablet by [facility] as needed (At bedtime). gabapentin 300 mg oral capsule (20 sources) Anti-epileptic Agent Start: 03-04-20 15 End: 03-29-20 take 1 capsule by mouth at bedtime Gabapentin 300 MG capsule Discontinued 300 mg PO AT BEDTIME March 04, 2015 12:00am January 10, 2024 11:26pm Comment on above: one in morning, two at bedtime Take 1 capsule by [facility] three times daily for 180 days. As directed GABAPENTIN, BULK, MISC (1 source) End: 08-23-19 GABAPENTIN, BULK, MISC 0 08/22/2021 Discontinued gentamicin 1 mg/ml topical cream (6 sources) Start: 03-10-20 End: 03-24-20 gentamicin 0.1% 0.1 % cream Apply to affected area twice daily for 14 days. 30 g 2 03/10/2022 03/24/2022 Comment on above: Apply to affected ar ea twice daily for 14 days. glimepiride 4 mg oral tablet (20 sources) Sulfonylurea Start: 03-25-20 End: 02-03-20 take 2 tablets by mouth once daily at breakfast glimepiride (AMARYL) 4 mg tablet Take 2 tablets by mouth daily with breakfast. 180 tablet 3 03/25/2022 02/02/2023 Discontinued Start: 08-22-2021 End: 07-23-2022 take 2 tablets by mouth once daily at breakfast glimepiride (AMARYL) 1 mg tablet Take 2 tablets by mouth daily with breakfast. 60 tablet 11 08/22/2021 07/23/2022 Discontinued Start: 01-10-2021 End: 03-23-2022 take 2 tablets by mouth once daily at breakfast glimepiride (AMARYL) 4 mg tablet Take 2 tablets by mouth daily with breakfast. 180 tablet 3 01/10/2021 03/23/2022 Discontinued Comment on above: Take 2 tablets by [facility] daily with breakfast. hydrocortisone 25 mg/ml topical cream (20 sources) Corticosteroid Start: 07-29-2023 End: 05-07-2024 hydrocortisone 2.5 % cream Apply twice a day to rash on face, then as needed 28 g 3 07/29/2023 05/07/2024 Discontinued (Adjust Sig - Block E-Cancel) Comment on above: Apply twice a day to rash on face, then as needed 3 ml insulin lispro 100 unt/ml pen injector (3 sources) Insulin Analog Start: 01-12-2024 End: 02-01-2024 Insulin Lispro (Humalog Kwikpen Insulin) 100 unit/mL Insulin Pen Discontinued 0 U SC BEFORE MEALS AND AT BEDTIME 0 January 12, 2024 12:00am February 01, 2024 9:02pm Please contact the information source for Protocol details. ketoconazole 20 mg/ml topical cream (20 sources) Azole Antifungal Start: 08-15-2022 End: 02-02-2023 ketoconazole (NIZORAL) 2 % cream Indications: Irregular heart rhythm Apply 1 application to affected area once daily. Continue for a week after rash resolves 30 g 0 08/15/2022 02/02/2023 Discontinued Comment on above: Apply 1 application to affected area once daily. Continue for a week after rash resolves 5 ml levETIRAcetam 100 mg/ml injection (1 source) Start: 05-06-2024 End: 05-06-2024 1,000 mg, INTRAVENOUS, ONCE, 1 dose, On 05/06/24 at 0330, Administer IV push over 2-5 minutes. Start: 05-06-2024 End: 05-06-2024 1,000 mg, INTRAVENOUS, ONCE, 1 dose, On 05/06/24 at 0330, Administer IV push over 2-5 minutes. 24 hr metFORMIN hydrochloride 500 mg extended release oral tablet (20 sources) Biguanide Start: 06-13-2017 End: 01-10-2024 take 4 tablets by mouth once daily Metformin 500 MG tablet Discontinued 2000 mg PO DAILY June 13, 2017 1:00am January 10, 2024 11:25pm Start: 06-13-2017 End: 10-23-2022 take 4 tablets by mouth once daily at breakfast metFORMIN ER (GLUCOPHAGE XR) 500 mg 24 hr tablet Take 4 tablets by mouth daily with breakfast. 360 tablet 3 04/11/2021 06/04/2022 Discontinued Comment on above: Take 4 tablets by [facility] daily with breakfast. methocarbamol 500 mg oral tablet (10 sources) Muscle Relaxant Start: 09-15-19 End: 10-15-19 take 1 tablet by mouth every twelve hours as needed methocarbamol (ROBAXIN) 500 mg tablet Take 1 tablet by mouth twice daily as needed. 60 tablet 0 09/14/2022 10/14/2022 Comment on above: Take 1 tablet by [facility] twice daily as needed. ondansetron 4 mg disintegrating oral tablet (20 sources) Serotonin-3 Receptor Antagonist Start: 05-06-20 End: 05-07-20 take 1 tablet by mouth every six hours as needed for nausea and nausea ondansetron orally disintegrating (ZOFRAN ODT) 4 mg disintegrating tablet Indications: Nausea Take 1 tablet by mouth every 6 hours as needed for nausea/vomiting. 12 tablet 05/06/2022 05/07/2024 Discontinued (Adjust Sig - Block E-Cancel) Start: 02-28-2022 End: 01-10-2024 take 1 tablet by mouth three times daily as needed for nausea and vomiting Ondansetron 4 mg tablet,disintegrating Discontinued 4 mg PO 3 TIMES DAILY NEEDED as needed for nausea and vomiting February 28, 2022 8:10am January 10, 2024 11:25pm Comment on above: Take [address] [facility] every 6 hours as needed for nausea/vomiting. oxyCODONE hydrochloride 5 mg oral tablet (3 sources) Opioid Agonist Start: End: take 1 tablet by mouth every four hours as needed for pain Oxycodone 5 mg Tablet Discontinued 5 mg PO EVERY 4 HOURS NEEDED as needed for Pain Score 4-10 12 3 January 12, 2024 February 01, 2024 9:04pm pnv/iron,carb/om-3/fa /fat 1(PRE-JIMY MULTIVITAMINS WITH MINERALS 27 MG-1 MG-300 MG CAP) (20 sources) Start: End: take 1 capsule by mouth once daily pnv/iron,carb/om-3/f a/fat 1(PRE- MULTIVITAMINS WITH MINERALS 27 MG-1 MG-300 MG CAP) Take 1 capsule by mouth once daily. 0 0 03/17/2019 05/07/2024 Discontinued (Adjust Sig - Block E-Cancel) Start: 03-17-2019 take 1 capsule by [facility] once daily pnv/iron,carb/om-3/fa/fat 1(PRE- MULTIVITAMINS WITH MINERALS 27 MG-1 MG-300 MG CAP) Take 1 capsule by mouth once daily. 0 0 03/17/2019 Active Comment on above: Take 1 capsule by [facility] once daily. regadenoson 0.4 mg injection (LEXISCAN) (1 source) Start: 01-29-20 End: 01-29-20 regadenoson 0.4 mg injection (LEXISCAN) rivaroxaban 15 mg oral tablet (9 sources) Factor Xa Inhibitor Start: 03-31-20 End: 01-10-20 take 1 tablet by mouth twice daily Rivaroxaban 15 MG tablet Discontinued 15 mg PO TWICE A DAY March 31, 2019 12:00am January 10, 2024 11:26pm semaglutide (OZEMPIC) 0.25 mg or 0.5 mg (2 mg/3 mL) pen (9 sources) Start: 09-29-19 End: 12-10-19 inject 0.5 mg by subcutaneous injection every week semaglutide (OZEMPIC) 0.25 mg or 0.5 mg (2 mg/3 mL) pen Indications: 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, without long-term current use of insulin (HCC) Inject 0.5 mg subcutaneously one time a week. 3 mL 2 09/29/2023 12/10/2023 Discontinued Start: 09-29-2023 inject 0.5 mg by sub cutaneous injection every week semaglutide (OZEMPIC) 0.25 mg or 0.5 mg (2 mg/3 mL) pen Indications: 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, without long-term current use of insulin (HCC) Inject 0.5 mg subcutaneously one time a week. 3 mL 2 09/29/2023 Active sertraline 25 mg oral tablet (20 sources) Serotonin Reuptake Inhibitor Start: 02-25-2019 End: 01-19-2022 take 1 tablet by mouth once daily sertraline (ZOLOFT) 25 mg tablet Take 1 tablet by mouth once daily. 30 tablet 2 02/25/2019 01/19/2022 Discontinued Comment on above: Take [address] [facility] once daily. tamsulosin hydrochloride 0.4 mg oral capsule (7 sources) alpha-Adrenergi c [place] Start: 02-28-2022 End: 01-10-2024 take 1 capsule by mouth once daily Tamsulosin (Flomax) 0.4 mg capsule Discontinued 0.4 mg PO DAILY 14 February 28, 2022 12:00am January 10, 2024 11:26pm tirzepatide (MOUNJARO) 5 mg/0.5 mL pen injector (20 sources) Start: 06-30-2024 End: 08-16-2024 inject 5 mg by subcutaneous injection every week tirzepatide (MOUNJARO) 5 mg/0.5 mL pen injector Indications: 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, without long-term current use of insulin (HCC) Inject 5 mg subcutaneously one time a week. 2 mL 5 06/30/2024 08/16/2024 Discontinued Start: 06-30-2024 inject 5 mg by subcu taneous injection every week tirzepatide (MOUNJARO) 5 mg/0.5 mL pen injector Indications: 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, without long-term current use of insulin (HCC) Inject 5 mg subcutaneously one time a week. 2 mL 5 06/30/2024 Active Start: 10-08-2023 End: 05-19-2024 tirzepatide (MOUNJARO) 5 mg/ 0.5 mL pen injector Indications: Class 1 obesity due to excess calories with serious comorbidity and body mass index (BMI) of 34.0 to 34.9 in adult , 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, without long-term current use of insulin (HCC) Inject 5 mg subcutaneously one time a week. 2 mL 5 10/08/2023 05/19/2024 Discontinued Start: 10-08-2023 tirzepatide (M OUNJARO) 5 mg/0.5 mL pen injector Indications: Class 1 obesity due to excess calories with serious comorbidity and body mass index (BMI) of 34.0 to 34.9 in adult , 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, without long-term current use of insulin (HCC) Inject 5 mg subcutaneously one time a week. 2 mL 5 10/08/2023 Suspended Start: 10-08-2023 tirzepatide (M OUNJARO) 5 mg/0.5 mL pen injector Indications: Class 1 obesity due to excess calories with serious comorbidity and body mass index (BMI) of 34.0 to 34.9 in adult , 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, without long-term current use of insulin (HCC) Inject 5 mg subcutaneously one time a week. 2 mL 5 10/08/2023 Active Start: 10-08-2023 End: 10-08-2023 tirzepatide (MOUNJARO) 5 mg/ 0.5 mL pen injector Indications: Class 1 obesity due to excess calories with serious comorbidity and body mass index (BMI) of 34.0 to 34.9 in adult Inject 5 mg subcutaneously one time a week. 2 mL 5 10/08/2023 10/08/2023 Discontinued Start: 07-08-2023 End: 10-08-2023 tirzepatide (MOUNJARO) 5 mg/ 0.5 mL pen injector Indications: Class 1 obesity due to excess calories with serious comorbidity and body mass index (BMI) of 34.0 to 34.9 in adult Inject 5 mg subcutaneously one time a week. 2 mL 5 07/08/2023 10/08/2023 Discontinued Start: 07-08-2023 tirzepatide (M OUNJARO) 5 mg/0.5 mL pen injector Indications: Class 1 obesity due to excess calories with serious comorbidity and body mass index (BMI) of 34.0 to 34.9 in adult Inject 5 mg subcutaneously one time a week. 2 mL 5 07/08/2023 Active Start: 06-04-2023 End: 07-08-2023 inject 5 mg by subcutaneous injection every week tirzepatide (MOUNJARO) 5 mg/0.5 mL pen injector Inject 5 mg subcutaneously one time a week. 2 mL 1 06/04/2023 07/08/2023 Discontinued Start: 06-04-2023 inject 5 mg by subcu taneous injection every week tirzepatide (MOUNJARO) 5 mg/0.5 mL pen injector Inject 5 mg subcutaneously one time a week. 2 mL 1 06/04/2023 Active Comment on above: Inject 5 mg subcutan eously one time a week. tiZANidine 4 mg oral tablet (20 sources) Central alpha-2 Adrenergic Agonist Start: 2 End: 3 take 1 tablet by mouth every twelve hours as needed tiZANidine (ZANAFLEX) 4 mg tablet Take 1 tablet by mouth twice daily as needed. 60 tablet 03/11/2022 04/29/2022 Discontinued Comment on above: Take 1 tablet by walt th twice daily as needed. 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) Intracranial hemorrhage; Translations: [Nontraumatic intracranial hemorrhage, unspecified] Onset: 05-06-2024 05-06-2024 Chronic Anxiety disorders (20 sources) Anxiety state; Translations: [Generalized anxiety disorder] Onset: 07-28-2007 05-29-2019 Chronic Calculus of urinary tract (20 sources) Renal colic; Translations: [Unspecified renal colic] Episodic Cardiac dysrhythmias (20 sources) Irregular heart beat; Translations: [Cardiac arrhythmia, unspecified] Onset: 11-10-2022 Chronic Complications of surgical procedures or medical care (20 sources) Post-surgical malabsorption; Translations: [Postsurgical malabsorption, not elsewhere classified] Onset: 07-19-2008 07-19-2008 Chronic Conditions associated with dizziness or vertigo (1 source) Lightheadedness; Translations: [Dizziness and giddiness] Episodic Crushing injury or internal injury (3 sources) Crush injury of right middle finger; Translations: [Crushing injury of right middle finger, initial encounter] Episodic Deficiency and other anemia (1 source) Iron deficiency anemia secondary to blood loss (chronic); Translations: [Iron deficiency anemia secondary to blood loss (chronic)] Onset: 09-01-2024 Chronic Deficiency and other anemia (1 source) Anemia; Translations: [Anemia, unspecified] 04-28-2024 Episodic Deficiency and other anemia (3 sources) Iron deficiency anemia; Translations: [Iron deficiency anemia, unspecified] 01-12-2024 Episodic Delirium, dementia, and amnestic and other cognitive disorders (20 sources) Dementia; Translations: [Unspecified dementia without behavioral disturbance] Onset: 05-12-2024 05-12-2024 Chronic Diabetes mellitus with complications (20 sources) Type 2 diabetes mellitus; 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] Onset: 10-16-2014 Chronic Diabetes mellitus without complication (5 sources) Diabetes mellitus; Translations: [Type 2 diabetes mellitus without complications] Onset: 02-26-2024 01-12-2024 Chronic Diabetes mellitus without complication (1 source) Glycosuria; Translations: [Glycosuria] Episodic Disorders of lipid metabolism (20 sources) Hyperlipidemia; Translations: [Hyperlipidemia, unspecified] Onset: 01-20-2005 04-21-2015 Chronic E Codes: Fall (20 sources) Accidental fall ; Translations: [Unspecified fall, initial encounter] Onset: 05-07-2024 03-01-2022 Episodic Essential hypertension (6 sources) Essential hypertension; Translations: [Essential (primary) hypertension] Onset: 02-26-2024 Chronic Fracture of upper limb (1 source) Open fracture finger distal phalanx, tuft; Translations: [Displaced fracture of distal phalanx of unspecified finger, initial encounter for open fracture] Episodic Glaucoma (20 sources) Unspecified glaucoma; Translations: [Unspecified glaucoma] 04-02-2005 Chronic Heart valve disorders (2 sources) Aortic valve sclerosis; 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] Onset: 05-05-2024 05-09-2024 Chronic Immunizations and screening for infectious disease (4 sources) Needs influenza immunization; Translations: [Encounter for immunization] Episodic Inflammatory diseases of female pelvic organs (2 sources) Vulvitis; Translations: [Subacute and chronic vulvitis] Episodic Intracranial injury (18 sources) Traumatic hematoma of subdural space of neuraxis; Translations: [Traumatic subdural hemorrhage with loss of consciousness of unspecified duration, initial encounter] Onset: 05-06-2024 05-06-2024 Episodic Malaise and fatigue (1 source) Fatigue; Translations: [Chronic fatigue, unspecified] 02-02-2023 Chronic Miscellaneous mental health disorders (20 sources) Psychological finding; Translations: [Psychological and behavioral factors associated with disorders or diseases classified elsewhere] Onset: 03-29-2007 03-29-2007 Chronic Mood disorders (5 sources) Moderate major depression, single episode; Translations: [Major depressive disorder, single episode, moderate] Chronic Mood disorders (1 source) Mood disorders; Translations: [Depression, unspecified] Onset: 2024 Mycoses (4 sources) Candidiasis of vulva; Translations: [Candidal vulvitis] Episodic Nausea and vomiting (1 source) Nausea; Translations: [Nausea] Episodic Nonspecific chest pain (20 sources) Chest pain, unspecified; Translations: [Atypical chest pain] Onset: 08-08-2014 08-08-2014 Episodic Nutritional deficiencies (20 sources) Vitamin D deficiency; Translations: [Vitamin D deficiency, unspecified] Onset: 01-25-2013 01-25-2013 Chronic Occlusion or stenosis of precerebral arteries (20 sources) Carotid artery occlusion; Translations: [Occlusion and stenosis of unspecified carotid artery] Onset: 03-09-2006 03-02-2007 Chronic Open wounds of extremities (1 source) Tear of skin; Translations: [Laceration without foreign body of left forearm, initial encounter] Episodic Open wounds of head; neck; and trunk (8 sources) Scalp laceration; Translations: [Laceration without foreign body of scalp, initial encounter] 03-01-2022 Episodic Other acquired deformities (20 sources) Lumbar spondylolisthesis; Translations: [Spondylolisthesis, lumbar region] Onset: 10-20-2017 10-21-2017 Episodic Other acquired deformities (1 source) Spondylolisthesis, lumbar region; Translations: [Spondylolisthesis of lumbar region] Onset: 03-30-2024 Episodic Other aftercare (18 sources) Long-term current use of anticoagulant; Translations: [group home (current) use of anticoagulants] 03-01-2022 Episodic Other and ill-defined heart disease (1 source) Diastolic dysfunction; Translations: [Other ill-defined heart diseases] Chronic Other circulatory disease (9 sources) H/O: hypertension; Translations: [Personal history of other diseases of the circulatory system] 02-16-2022 Episodic Other diseases of bladder and urethra (3 sources) Overactive bladder; Translations: [Overactive bladder] 01-12-2024 Chronic Other diseases of bladder and urethra (1 source) Overactive bladder; Translations: [Overactive bladder] Onset: 2024 Chronic Other endocrine disorders (3 sources) Hyperparathyroidism; Translations: [Hyperparathyroidism , unspecified] 01-12-2024 Chronic Other endocrine disorders (1 source) Hyperparathyroidism, unspecified; Translations: [Hyperparathyroidism , unspecified] Onset: 2024 Chronic Other fractures (1 source) Other fracture of unspecified lumbar vertebra, initial encounter for closed fracture; Translations: [Other fracture of unspecified lumbar vertebra, initial encounter for closed fracture (HCC)] Onset: 10-03-2018 Episodic Other hematologic conditions (9 sources) History of anemia; Translations: [Personal history of diseases of the blood and blood-forming organs and certain disorders involving the immune mechanism] 08-27-2020 Episodic Other hereditary and degenerative nervous system conditions (1 source) Impaired cognition; Translations: [Mild cognitive impairment, so stated] 08-11-2023 Chronic Other inflammatory condition of skin (1 source) Itching of skin; Translations: [Pruritus, unspecified] Episodic Other injuries and conditions due to external causes (20 sources) Angioedema; Translations: [Angioneurotic edema, initial encounter] 04-02-2005 Episodic Other injuries and conditions due to external causes (8 sources) Closed injury of head; Translations: [Unspecified injury of head, initial encounter] 03-01-2022 Episodic Other injuries and conditions due to external causes (1 source) Injury of finger of right hand; Translations: [Unspecified injury of right wrist, hand and finger(s), initial encounter] Episodic Other lower respiratory disease (11 sources) Dyspnea on exertion; Translations: [Shortness of breath] Episodic Other lower respiratory disease (4 sources) Chronic cough; Translations: [Chronic cough] Episodic Other nervous system disorders (15 sources) Pneumocephalus; Translations: [Other specified disorders of brain] Onset: 05-06-2024 05-06-2024 Chronic Other nervous system disorders (15 sources) Midline shift of brain; Translations: [Midline shift of brain due to hematoma] Onset: 05-07-2024 05-07-2024 Chronic Other nervous system disorders (1 source) Other specified disorders of brain; Translations: [Other specified disorders of brain] Onset: 10-11-2024 Chronic Other nervous system disorders (1 source) Impaired cognition; Translations: [Other symptoms and signs involving cognitive functions and awareness] 12-11-2023 Episodic Other nutritional; endocrine; and metabolic disorders (20 sources) Severe obesity; Translations: [Morbid (severe) obesity due to excess calories] 08-21-2021 Chronic Other nutritional; endocrine; and metabolic disorders (9 sources) Obese class I; Translations: [Obesity, unspecified] 02-16-2022 Chronic Other nutritional; endocrine; and metabolic disorders (2 sources) Hypoalbuminemia; Translations: [Other disorders of plasma-protein metabolism, not elsewhere classified] Chronic Other nutritional; endocrine; and metabolic disorders (20 sources) Obese class II; Translations: [Obesity, unspecified] Onset: 02-02-2023 02-02-2023 Chronic Other nutritional; endocrine; and metabolic disorders (20 sources) Obesity caused by energy imbalance; Translations: [Other obesity due to excess calories] Onset: 07-09-2023 07-09-2023 Chronic Other nutritional; endocrine; and metabolic disorders (1 source) Other obesity due to excess calories; Translations: [Class 1 obesity due to excess calories with body mass index (BMI) of 33.0 to 33.9 in adult, unspecified whether serious comorbidity present] Onset: 12-10-2023 Chronic Other nutritional; endocrine; and metabolic disorders (1 source) Body mass index (BMI) 33.0-33.9, adult; Translations: [Class 1 obesity due to excess calories with body mass index (BMI) of 33.0 to 33.9 in adult, unspecified whether serious comorbidity present] Onset: 12-10-2023 Chronic Other nutritional; endocrine; and metabolic disorders (1 source) Obesity, unspecified; Translations: [Obesity, unspecified] Onset: 01-21-2024 Chronic Other nutritional; endocrine; and metabolic disorders (9 sources) History of hypercholesterolemia ; Translations: [Personal history of other endocrine, nutritional and metabolic disease] 02-16-2022 Episodic Other nutritional; endocrine; and metabolic disorders (9 sources) History of diabetes mellitus type 2; Translations: [Personal history of other endocrine, nutritional and metabolic disease] 02-16-2022 Episodic Other screening for suspected conditions (not mental disorders or infectious disease) (10 sources) Protein level - finding; Translations: [Other specified abnormal findings of blood chemistry] Episodic Other skin disorders (20 sources) Localized scleroderma; 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]] Onset: 08-18-2007 08-18-2007 Chronic Other skin disorders (20 sources) Lichen sclerosus et atrophicus; Translations: [Circumscribed scleroderma] Onset: 08-23-2009 05-26-2021 Chronic Other skin disorders (1 source) Seborrheic keratosis; Translations: [Other seborrheic keratosis] 07-29-2023 Episodic Other upper respiratory disease (20 sources) Chronic rhinitis; Translations: [Chronic rhinitis] Onset: 01-20-2005 01-20-2005 Chronic Other upper respiratory disease (3 sources) Allergic rhinitis; Translations: [Allergic rhinitis, unspecified] 01-12-2024 Chronic Other upper respiratory disease (1 source) Allergic rhinitis, unspecified; Translations: [Allergic rhinitis, unspecified] Onset: 2024 Chronic Residual codes; unclassified (2 sources) Obstructive sleep apnea syndrome; Translations: [Obstructive sleep apnea (adult) (pediatric)] 06-27-2023 Chronic Residual codes; unclassified (9 sources) History of chest pain; Translations: [Personal history of other specified conditions] 08-27-2020 Episodic Residual codes; unclassified (4 sources) Memory impairment; Translations: [Other amnesia] Episodic Residual codes; unclassified (1 source) Edema of foot; Translations: [Localized edema] 04-28-2024 Episodic Spondylosis; intervertebral disc disorders; other back problems (20 sources) Intervertebral disc disorder of cervical region with myelopathy; Translations: [Cervical disc disorder with myelopathy, unspecified cervical region] Onset: 04-11-2009 04-11-2009 Chronic Spondylosis; intervertebral disc disorders; other back problems (20 sources) Thoracic radiculopathy; Translations: [Radiculopathy, thoracic region] Onset: 04-09-2015 Episodic Spondylosis; intervertebral disc disorders; other back problems (1 source) Spinal stenosis, lumbar region without neurogenic claudication; Translations: [Spinal stenosis of lumbar region, unspecified whether neurogenic claudication present] Onset: 10-03-2018 Superficial injury; contusion (9 sources) Contusion of back; Translations: [Contusion of unspecified back wall of thorax, initial encounter] 02-26-2023 Episodic Unclassified (1 source) Unknown / UNK(Unknown) Onset: 09-08-2017 Unclassified (20 sources) Aortic valve sclerosis; 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] Onset: 07-09-2015 07-09-2015 Unclassified (1 source) Low back pain, unspecified; Translations: [Low back pain, unspecified] Onset: 06-10-2024 Unclassified (1 source) Acute candidiasis of vulva and vagina; Translations: [Acute candidiasis of vulva and vagina] Onset: 2024 Past or Other Problems Problem Classification Problem Date Documented Da te Episodic/Chronic Abdominal hernia (20 sources) Incisional hernia; Translations: [Incisional hernia without obstruction or gangrene] Onset: 9 03-17-2019 Episodic Acute posthemorrhagic anemia (15 sources) Acute posthemorrhagic anemia; Translations: [Acute posthemorrhagic anemia] Onset: 4 05-07-2024 Episodic Allergic reactions (20 sources) Contact dermatitis; Translations: [Unspecified contact dermatitis, unspecified cause] Onset: 8 12-07-2007 Episodic Biliary tract disease (20 sources) Gallstone; Translations: [Calculus of gallbladder without cholecystitis without obstruction] Onset: 5 04-09-2005 Episodic Complications of surgical procedures or medical care (20 sources) Drug-induced hypotension; Translations: [Hypotension due to drugs] Onset: 9 Resolved: 6 02-02-2023 Episodic Deficiency and other anemia (20 sources) Pernicious anemia; Translations: [Vitamin B12 deficiency anemia due to intrinsic factor deficiency] Onset: 7 05-29-2019 Episodic Deficiency and other anemia (1 source) Anemia, unspecified; Translations: [Anemia, unspecified type] Onset: 4 Episodic Deficiency and other anemia (1 source) Iron deficiency anemia, unspecified; Translations: [Iron deficiency anemia, unspecified] Onset: 4 Episodic Fluid and electrolyte disorders (15 sources) Hyperkalemia; Translations: [Hyperkalemia] Onset: 4 05-08-2024 Episodic Fracture of neck of femur (hip) (17 sources) Closed intertrochanteric fracture; Translations: [Displaced intertrochanteric fracture of left femur, initial encounter for closed fracture] Onset: 4 01-20-2024 Episodic Genitourinary symptoms and ill-defined conditions (5 sources) Increased frequency of urination; Translations: [Frequency of micturition] Onset: 4 Episodic Heart valve disorders (20 sources) Heart murmur; Translations: [Cardiac murmur, unspecified] Onset: 5 06-21-2014 Episodic Malaise and fatigue (9 sources) Fatigue; Translations: [Other fatigue] Onset: 4 Episodic Nutritional deficiencies (17 sources) Iron deficiency; Translations: [Iron deficiency] Onset: 4 Episodic Other aftercare (20 sources) Patient encounter status; Translations: [Encounter for therapeutic drug level monitoring] Onset: 1 Resolved: 2 02-02-2023 Episodic Other aftercare (1 source) Other retirement (current) drug therapy; Translations: [Encounter for long-term current use of medication] Onset: 4 Episodic Other bone disease and musculoskeletal deformities (20 sources) Disorder of skeletal system; Translations: [Disorder of bone, unspecified] Onset: 8 05-26-2021 Episodic Other circulatory disease (1 source) Personal history of other diseases of the circulatory system; Translations: [Personal history of other diseases of the circulatory system] Onset: 4 Episodic Other connective tissue disease (20 sources) Soft tissue lesion of shoulder region; Translations: [Bursopathy, unspecified] Onset: 1 08-12-2010 Episodic Other connective tissue disease (20 sources) Trochanteric bursitis of left hip; Translations: [Trochanteric bursitis, left hip] Onset: 1 12-20-2020 Episodic Other connective tissue disease (20 sources) Muscle weakness; Translations: [Muscle weakness (generalized)] Onset: 1 12-20-2020 Episodic Other fractures (20 sources) Open fracture of first lumbar vertebra; Translations: [Wedge compression fracture of first lumbar vertebra, subsequent encounter for fracture with routine healing] Onset: 9 08-21-2021 Episodic Other gastrointestinal disorders (20 sources) History of bypass of stomach; Translations: [Bariatric surgery status] Onset: 5 Resolved: 2 Episodic Other gastrointestinal disorders (20 sources) H/O: GIT by-pass; Translations: [Bariatric surgery status] Onset: 5 04-21-2015 Episodic Other gastrointestinal disorders (1 source) Bariatric surgery status; 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] Onset: 5 Episodic Other hematologic conditions (1 source) Personal history of diseases of the blood and blood-forming organs and certain disorders involving the immune mechanism; Translations: [Personal history of diseases of the blood and blood-forming organs and certain disorders involving the immune mechanism] Onset: 4 Episodic Other inflammatory condition of skin (20 sources) Pruritus of skin; Translations: [Pruritus, unspecified] Onset: 8 Resolved: 3 12-07-2007 Episodic Other inflammatory condition of skin (1 source) Pruritus, unspecified; Translations: [Pruritic condition] Onset: 4 Episodic Other nervous system disorders (1 source) Other symptoms and signs involving cognitive functions and awareness; Translations: [Cognitive impairment] Onset: 4 Episodic Other non-traumatic joint disorders (20 sources) Shoulder joint pain; Translations: [Pain in unspecified shoulder] Onset: 3 Resolved: 3 04-18-2013 Episodic Other non-traumatic joint disorders (20 sources) Hip pain; Translations: [Pain in left hip] Onset: 1 12-20-2020 Episodic Other non-traumatic joint disorders (3 sources) Pain in right knee; Translations: [Pain in joint, lower leg] Onset: 4 12-24-2023 Episodic Other nutritional; endocrine; and metabolic disorders (20 sources) Morbid obesity; Translations: [Morbid (severe) obesity due to excess calories] Onset: 8 Resolved: 9 03-10-2019 Chronic Other nutritional; endocrine; and metabolic disorders (20 sources) Body mass index 40+ - severely obese; Translations: [Morbid (severe) obesity due to excess calories] Onset: 9 Resolved: 9 03-10-2019 Chronic Other nutritional; endocrine; and metabolic disorders (1 source) Personal history of other endocrine, nutritional and metabolic disease; Translations: [Personal history of other endocrine, nutritional and metabolic disease] Onset: 4 Episodic Pulmonary heart disease (20 sources) Pulmonary embolism; Translations: [Multiple subsegmental pulmonary emboli without acute cor pulmonale] Onset: 9 04-10-2019 Episodic Residual codes; unclassified (15 sources) At risk of epileptic fits; Translations: [Other specified personal risk factors, not elsewhere classified] Onset: 4 05-06-2024 Episodic Residual codes; unclassified (13 sources) Delirium; Translations: [Disorientation, unspecified] Onset: 4 05-12-2024 Episodic Residual codes; unclassified (1 source) Localized edema; Translations: [Pedal edema] Onset: 4 Episodic Residual codes; unclassified (1 source) Personal history of other specified conditions; Translations: [Personal history of other specified conditions] Onset: 4 Episodic Sprains and strains (20 sources) Lumbar sprain; Translations: [Sprain of ligaments of lumbar spine, initial encounter] Onset: 3 07-15-2012 Episodic Unclassified (20 sources) Type 2 diabetes mellitus without complication; Translations: [Diabetes mellitus type 2, uncontrolled, without complications] Onset: 5 Resolved: 2 08-21-2021 Urinary tract infections (12 sources) Acute urinary tract infection; Translations: [Urinary tract infection, site not specified] Onset: 5 Episodic Results Test Name Value Interpretation Reference Range Facility Basic Metabolic Profile (BMP )on 10-26-2024 BUN/CRE 51.9 RATIO High 10-20 [facility] Comment on above: Order Comment: 303.2 Performed By: #### L 100.0500, L500.2500 ####[facility] [address] [place], [address] Calcium [Mass/Vol] 9.1 mg/dL Normal 7.6-11.0 [facility] Comment on above: Order Comment: 303.2 Performed By: #### L 100.0500, L500.2500 ####[facility] [address] [place], [address] Chloride [Moles/Vol] 102 mmol/L Normal 98-108 [facility] Comment on above: Order Comment: 303.2 Performed By: #### L 100.0500, L500.2500 ####[facility] [address] [place], [address] CO2 [Moles/Vol] 21.2 mmol/L Normal 21.0-32.0 [facility] Comment on above: Order Comment: 303.2 Performed By: #### L 100.0500, L500.2500 ####[facility] [address] [place], [address] Creatinine [Mass/Vol] 0.39 mg/dL Low 0.70-1.20 [facility] Comment on above: Order Comment: 303.2 Performed By: #### L 100.0500, L500.2500 ####[facility] [address] [place], [address] GAP 11 Normal 5-15 [facility] Comment on above: Order Comment: 303.2 Performed By: #### L 100.0500, L500.2500 ####[facility] [address] [place], [address] GFR/1.73 sq M.predicted among non-blacks MDRD (S/P/Bld) [Vol rate/Area] 99 mL/min/{1.73_m2} Normal >60 [facility] Comment on above: Order Comment: 303.2 Result Comment: mL/m in/1.73m2 CKD-EPI Creatinine Equation (2020) Performed By: #### L 100.0500, L500.2500 ####[facility] [address] [place], [address] Glucose [Mass/Vol] 114 mg/dL High 70-99 [facility] Comment on above: Order Comment: 303.2 Performed By: #### L 100.0500, L500.2500 ####[facility] [address] [place], [address] Potassium [Moles/Vol] 3.7 mmol/L Normal 3.3-5.1 [facility] Comment on above: Order Comment: 303.2 Performed By: #### L 100.0500, L500.2500 ####[facility] [address] [place], [address] Sodium [Moles/Vol] 135 mmol/L Normal 133-145 [facility] Comment on above: Order Comment: 303.2 Performed By: #### L 100.0500, L500.2500 ####[facility] [address] [place], [address] Urea nitrogen [Mass/Vol] 20 mg/dL High 4-19 [facility] Comment on above: Order Comment: 303.2 Performed By: #### L 100.0500, L500.2500 ####[facility] [address] [place], [place], [address] CBC-Complete Blood Cnt No Di ffon 10-26-2024 Erythrocyte distribution width (RBC) [Ratio] 15.3 % High 11.6-14.6 [facility] Comment on above: Order Comment: 303.2 Performed By: #### L 100.0500, L500.2500 ####[facility] [address] [place], [address] Hematocrit (Bld) [Volume fraction] 33.1 % Low 37-47 [facility] Comment on above: Order Comment: 303.2 Performed By: #### L 100.0500, L500.2500 ####[facility] [address] [place], [address] Hemoglobin (Bld) [Mass/Vol] 10.5 g/dL Low 12.0-15.0 [facility] Comment on above: Order Comment: 303.2 Performed By: #### L 100.0500, L500.2500 ####[facility] [address] [place], [address] MCH (RBC) [Entitic mass] 30.1 pg Normal 27.0-32.0 [facility] Comment on above: Order Comment: 303.2 Performed By: #### L 100.0500, L500.2500 ####[facility] [address] [place], [address] MCHC (RBC) [Mass/Vol] 31.7 g/dL Low 32-36 [facility] Comment on above: Order Comment: 303.2 Performed By: #### L 100.0500, L500.2500 ####[facility] [address] [place], [address] MCV (RBC) [Entitic vol] 94.8 fL Normal 81-99 [facility] Comment on above: Order Comment: 303.2 Performed By: #### L 100.0500, L500.2500 ####[facility] [address] [place], [address] Platelet mean volume (Bld) [Entitic vol] 10.6 fL Normal 6.2-12.0 [facility] Comment on above: Order Comment: 303.2 Performed By: #### L 100.0500, L500.2500 ####[facility] [address] [place], [address] Platelets (Bld) [#/Vol] 328 10*3/uL Normal 150-450 [facility] Comment on above: Order Comment: 303.2 Performed By: #### L 100.0500, L500.2500 ####[facility] [address] [place], [address] RBC (Bld) [#/Vol] 3.49 10*6/uL Low 4.2-5.4 [facility] Comment on above: Order Comment: 303.2 Performed By: #### L 100.0500, L500.2500 ####[facility] [address] [place], [address] RDW SD 53.2 fl High 35.1-43.9 [facility] Comment on above: Order Comment: 303.2 Performed By: #### L 100.0500, L500.2500 ####[facility] [address] [place], [address] WBC (Bld) [#/Vol] 9.9 10*3/uL Normal 4.4-11.0 [facility] Comment on above: Order Comment: 303.2 Performed By: #### L 100.0500, L500.2500 ####[facility] [address] [place], [address] Hemoglobin A1con 09-26-2024 HbA1c (Bld) [Mass fraction] 5.8 % High <=5.6 [facility] Comment on above: Order Comment: 303.2 Result Comment: Norm al < 5.7 % Prediabetic 5.7 - 6.4 % Diabetic >or= 6.5 % Please note range changes. Performed By: #### L 501.9985 ####[facility] [address] [facility] [place], [address] Hemoglobin A1c percentageOrd ered By: Deep Dela Cruz on 09-26-2024 HbA1c (Bld) [Mass fraction] 5.8 % High <5.7 [facility] Comment on above: Normal < 5.7 % Predi abetic 5.7 - 6.4 % Diabetic >or= 6.5 % Please note range changes. Anion gap in Serum or Plasma Ordered By: Deep Dela Cruz on 09-21-2024 Anion gap [Moles/Vol] 10 mmol/L 5-15 [facility] BUN/creatinine ratioOrdered By: Deep Dela Cruz on 09-21-2024 Urea nitrogen/Creatinine [Mass ratio] 20.3 mg/mg High 10-20 [facility] Bilirubin, totalOrdered By: Deep Dela Cruz on 09-21-2024 Bilirubin [Mass/Vol] 0.22 mg/dL 0.00-1.30 [facility] CBC-Complete Blood Cnt No Di ffon 09-21-2024 Erythrocyte distribution width (RBC) [Ratio] 18.6 % High 11.6-14.6 [facility] Comment on above: Order Comment: 303-2 Performed By: #### L 500.4050, L100.0500 ####[facility] [address] [place], [address] Hematocrit (Bld) [Volume fraction] 39.8 % Normal 37-47 [facility] Comment on above: Order Comment: 303-2 Performed By: #### L 500.4050, L100.0500 ####[facility] [address] [place], [address] Hemoglobin (Bld) [Mass/Vol] 12.4 g/dL Normal 12.0-15.0 [facility] Comment on above: Order Comment: 303-2 Performed By: #### L 500.4050, L100.0500 ####[facility] [address] [place], [address] MCH (RBC) [Entitic mass] 28.6 pg Normal 27.0-32.0 [facility] Comment on above: Order Comment: 303-2 Performed By: #### L 500.4050, L100.0500 ####[facility] [address] [place], [address] MCHC (RBC) [Mass/Vol] 31.2 g/dL Low 32-36 [facility] Comment on above: Order Comment: 303-2 Performed By: #### L 500.4050, L100.0500 ####[facility] [address] [place], [address] MCV (RBC) [Entitic vol] 91.9 fL Normal 81-99 [facility] Comment on above: Order Comment: 303-2 Performed By: #### L 500.4050, L100.0500 ####[facility] [address] [place], [address] Platelet mean volume (Bld) [Entitic vol] 10.4 fL Normal 6.2-12.0 [facility] Comment on above: Order Comment: 303-2 Performed By: #### L 500.4050, L100.0500 ####[facility] [address] [place], [address] Platelets (Bld) [#/Vol] 320 10*3/uL Normal 150-450 [facility] Comment on above: Order Comment: 303-2 Performed By: #### L 500.4050, L100.0500 ####[facility] [address] [place], [address] RBC (Bld) [#/Vol] 4.33 10*6/uL Normal 4.2-5.4 [facility] Comment on above: Order Comment: 303-2 Performed By: #### L 500.4050, L100.0500 ####[facility] [address] [place], [address] RDW SD 62.9 fl High 35.1-43.9 [facility] Comment on above: Order Comment: 303-2 Performed By: #### L 500.4050, L100.0500 ####[facility] [address] [place], [address] WBC (Bld) [#/Vol] 6.5 10*3/uL Normal 4.4-11.0 [facility] Comment on above: Order Comment: 303-2 Performed By: #### L 500.4050, L100.0500 ####[facility] [address] [place], [address] Carbon dioxide, total [Moles /volume] in Central venous bloodOrdered By: Deep Dela Cruz on 09-21-2024 CO2 [Moles/Vol] 22.1 mmol/L 21.0-32.0 [facility] Chloride assayOrdered By: Fried on 09-21-2024 Chloride [Moles/Vol] 105 mmol/L 98-108 [facility] Comprehensive Metabolic Prof ilon 09-21-2024 Albumin [Mass/Vol] 2.6 g/dL Low 3.4-4.8 [facility] Comment on above: Order Comment: 303-2 Performed By: #### L 500.4050, L100.0500 ####[facility] [address] [place], [address] Albumin/Globulin [Mass ratio] 0.8 {ratio} Low 0.9-2.4 [facility] Comment on above: Order Comment: 303-2 Performed By: #### L 500.4050, L100.0500 ####[facility] [address] [place], [address] ALK PHOS 124 U/L High 35-104 [facility] Comment on above: Order Comment: 303-2 Performed By: #### L 500.4050, L100.0500 ####[facility] [address] [place], [address] ALT [Catalytic activity/Vol] 11 U/L Normal <=34 [facility] Comment on above: Order Comment: 303-2 Performed By: #### L 500.4050, L100.0500 ####[facility] [address] [place], [address] AST [Catalytic activity/Vol] 26 U/L Normal <=31 [facility] Comment on above: Order Comment: 303-2 Performed By: #### L 500.4050, L100.0500 ####[facility] [address] [place], [address] Bilirubin [Mass/Vol] 0.22 mg/dL Normal 0.00-1.30 [facility] Comment on above: Order Comment: 303-2 Performed By: #### L 500.4050, L100.0500 ####[facility] [address] [place], [address] BUN/CRE 20.3 RATIO High 10-20 [facility] Comment on above: Order Comment: 303-2 Performed By: #### L 500.4050, L100.0500 ####[facility] [address] [place], [address] Calcium [Mass/Vol] 8.9 mg/dL Normal 7.6-11.0 [facility] Comment on above: Order Comment: 303-2 Performed By: #### L 500.4050, L100.0500 ####[facility] [address] [place], [address] Chloride [Moles/Vol] 105 mmol/L Normal 98-108 [facility] Comment on above: Order Comment: 303-2 Performed By: #### L 500.4050, L100.0500 ####[facility] [address] [place], [address] CO2 [Moles/Vol] 22.1 mmol/L Normal 21.0-32.0 [facility] Comment on above: Order Comment: 303-2 Performed By: #### L 500.4050, L100.0500 ####[facility] [address] [place], [address] Creatinine [Mass/Vol] 0.66 mg/dL Low 0.70-1.20 [facility] Comment on above: Order Comment: 303-2 Performed By: #### L 500.4050, L100.0500 ####[facility] [address] [place], [address] GAP 10 Normal 5-15 [facility] Comment on above: Order Comment: 303-2 Performed By: #### L 500.4050, L100.0500 ####[facility] [address] [place], [address] GFR/1.73 sq M.predicted among non-blacks MDRD (S/P/Bld) [Vol rate/Area] 88 mL/min/{1.73_m2} Normal >60 [facility] Comment on above: Order Comment: 303-2 Result Comment: mL/m in/1.73m2 CKD-EPI Creatinine Equation (2020) Performed By: #### L 500.4050, L100.0500 ####[facility] [address] [place], [address] Globulin (S) [Mass/Vol] 3.5 g/dL Normal 2.2-4.2 [facility] Comment on above: Order Comment: 303-2 Performed By: #### L 500.4050, L100.0500 ####[facility] [address] [place], [address] Glucose [Mass/Vol] 81 mg/dL Normal 70-99 [facility] Comment on above: Order Comment: 303-2 Performed By: #### L 500.4050, L100.0500 ####[facility] [address] [place], [address] Potassium [Moles/Vol] 4.0 mmol/L Normal 3.3-5.1 [facility] Comment on above: Order Comment: 303-2 Performed By: #### L 500.4050, L100.0500 ####[facility] [address] [place], [address] Sodium [Moles/Vol] 137 mmol/L Normal 133-145 [facility] Comment on above: Order Comment: 303-2 Performed By: #### L 500.4050, L100.0500 ####[facility] [address] [place], [address] T PROT 6.1 g/dL Normal 5.9-8.4 [facility] Comment on above: Order Comment: 303-2 Performed By: #### L 500.4050, L100.0500 ####[facility] [address] [place], [address] Urea nitrogen [Mass/Vol] 13 mg/dL Normal 4-19 [facility] Comment on above: Order Comment: 303-2 Performed By: #### L 500.4050, L100.0500 ####[facility] [address] [place], [address] Erythrocyte distribution wid th ratioOrdered By: Deep Dela Cruz on 09-21-2024 Erythrocyte distribution width (RBC) [Ratio] 18.6 % High 11.6-14.6 [facility] Erythrocyte distribution wid th standard deviationOrdered By: Deep Dela Cruz on 09-21-2024 Erythrocyte distribution width (RBC) [Ratio] 62.9 fl High 35.1-43.9 [facility] Glomerular filtration rate ( GFR) estimation/1.73 sq m using serum, plasma, or whole bOrdered By: Deep Dela Cruz on 09-21-2024 GFR/1.73 sq M.predicted among non-blacks MDRD (S/P/Bld) [Vol rate/Area] 88 mL/min/{1.73_m2} >60 [facility] Comment on above: mL/min/1.73m2 CKD-EP I Creatinine Equation (2020) Hematocrit Auto (Bld) [Volum e fraction]Ordered By: Deep Dela Cruz on 09-21-2024 Hematocrit (Bld) [Volume fraction] 39.8 % 37-47 [facility] Hemoglobin measurementOrdere d By: Deep Dela Cruz on 09-21-2024 Hemoglobin (Bld) [Mass/Vol] 12.4 g/dL 12.0-15.0 [facility] Laboratory - Chemistry and C hemistry - challengeOrdered By: Deep Dela Cruz on 09-21-2024 AST [Catalytic activity/Vol] 26 U/L <32 [facility] MCV (mean corpuscular volume ) determinationOrdered By: Deep Dela Cruz on 09-21-2024 MCV (RBC) [Entitic vol] 91.9 fL 81-99 [facility] Mean corpuscular hemoglobin (MCH) determinationOrdered By: Deep Dela Cruz on 09-21-2024 MCH (RBC) [Entitic mass] 28.6 pg 27.0-32.0 [facility] Mean corpuscular hemoglobin concentration (MCHC) determinationOrdered By: Deep Dela Cruz on 09-21-2024 MCHC (RBC) [Mass/Vol] 31.2 g/dL Low 32-36 [facility] Mean platelet volume determi nationOrdered By: Deep Dela Cruz on 09-21-2024 Platelet mean volume (Bld) [Entitic vol] 10.4 fL 6.2-12.0 [facility] Platelet countOrdered By: Fried on 09-21-2024 Platelets (Bld) [#/Vol] 320 10*3/uL 150-450 [facility] Potassium measurement (mass/ volume)Ordered By: Deep Dela Cruz on 09-21-2024 Potassium (Unsp spec) [Mass/Vol] 4.0 mmol/L 3.3-5.1 [facility] RBC Auto (Bld) [#/Vol]Ordere d By: Deep Dela Cruz on 09-21-2024 RBC (Bld) [#/Vol] 4.33 10*6/uL 4.2-5.4 [facility] Serum creatinine measurement (mass/volume)Ordered By: Deep Dela Cruz on 09-21-2024 Creatinine [Mass/Vol] 0.66 mg/dL Low 0.70-1.20 [facility] Serum globulin measurementOr dered By: Deep Dela Cruz on 09-21-2024 Globulin (S) [Mass/Vol] 3.5 g/dL 2.2-4.2 [facility] Serum glucose measurement (m ass/volume)Ordered By: Deep Dela Cruz on 09-21-2024 Glucose [Mass/Vol] 81 mg/dL 70-99 [facility] Serum or plasma alanine wilson otransferase (ALT) measurementOrdered By: Deep Dela Cruz on 09-21-2024 ALT [Catalytic activity/Vol] 11 U/L <35 [facility] Serum or plasma albumin jessi urement (mass/volume)Ordered By: Deep Dela Cruz on 09-21-2024 Albumin [Mass/Vol] 2.6 g/dL Low 3.4-4.8 [facility] Serum or plasma albumin/glob ulin mass ratioOrdered By: Deep Dela Cruz on 09-21-2024 Albumin/Globulin [Mass ratio] 0.8 {ratio} Low 0.9-2.4 [facility] Serum or plasma alkaline jero sphatase measurementOrdered By: Deep Dela Cruz on 09-21-2024 ALP [Catalytic activity/Vol] 124 U/L High 35-104 [facility] Serum or plasma calcium jessi urement (mass/volume)Ordered By: Deep Dela Cruz on 09-21-2024 Calcium [Mass/Vol] 8.9 mg/dL 7.6-11.0 [facility] Serum or plasma urea nitroge n measurement (mass/volume)Ordered By: Deep Dela Cruz on 09-21-2024 Urea nitrogen [Mass/Vol] 13 mg/dL 4-19 [facility] Sodium levelOrdered By: Deep Dela Cruz on 09-21-2024 Sodium [Moles/Vol] 137 mmol/L 133-145 [facility] Total proteinOrdered By: Janet Dela Cruz on 09-21-2024 Protein [Mass/Vol] 6.1 g/dL 5.9-8.4 [facility] White blood cell (WBC) count Ordered By: Deep Dela Cruz on 09-21-2024 WBC (Bld) [#/Vol] 6.5 10*3/uL 4.4-11.0 [facility] Urine Cultureon 09-15-2024 URC Normal [facility] Comment on above: Performed By: #### M 100.2200, L400.0001 ####[facility] [address] [place], [address] Urinalysis, Completeon 09-12 AMORPHOUS 1+ Normal [facility] Comment on above: Order Comment: STRAI GHT CATHCATHETER SPECIMEN Performed By: #### M 100.2200, L400.0001 ####[facility] [address] [place], [address] RBC 0-5 SEEN Normal 0-5 [facility] Comment on above: Order Comment: STRAI GHT CATHCATHETER SPECIMEN Performed By: #### M 100.2200, L400.0001 ####[facility] [address] [place], [address] TRIPLE PHOS 1+ /hpf Normal [facility] Comment on above: Order Comment: STRAI GHT CATHCATHETER SPECIMEN Performed By: #### M 100.2200, L400.0001 ####[facility] [address] [place], [address] BACTERIA 3+ /hpf Normal None Seen [facility] Comment on above: Order Comment: STRAI GHT CATHCATHETER SPECIMEN Performed By: #### M 100.2200, L400.0001 ####[facility] [address] [place], [address] WBC 10-25 SEEN Normal 0-5 [facility] Comment on above: Order Comment: STRAI GHT CATHCATHETER SPECIMEN Performed By: #### M 100.2200, L400.0001 ####[facility] [address] [place], [address] EPI,SQUAMOUS 0 SEEN Normal 5-10 [facility] Comment on above: Order Comment: STRAI GHT CATHCATHETER SPECIMEN Performed By: #### M 100.2200, L400.0001 ####[facility] [address] [place], [address] Mucus Ql (Urine sed) 0 SEEN Normal [facility] Comment on above: Order Comment: STRAI GHT CATHCATHETER SPECIMEN Performed By: #### M 100.2200, L400.0001 ####[facility] [address] [place], [address] Amorphous sediment detection in urine sediment by light microscopyOrdered By: Deep Dela Cruz on 09-11-2024 Amorphous sediment LM Ql (Urine sed) 1+ [facility] Bilirubin Test strip Ql (U)O rdered By: Deep Dela Cruz on 09-11-2024 Bilirubin Ql (U) Negative Negative [facility] Ketones Test strip Ql (U)Ord ered By: Deep Dela Cruz on 09-11-2024 Ketones Ql (U) Negative Negative [facility] Microscopic analysis of urin e for red blood cells (RBC)Ordered By: Deep Dela Cruz on 09-11-2024 Microscopic analysis of urine for red blood cells (RBC) 0-5 SEEN /hpf 0-5 [facility] Mucus LM Ql (Urine sed)Order ed By: Deep Dela Cruz on 09-11-2024 Mucus Ql (Urine sed) 0 SEEN /hpf [facility] Nitrite Test strip Ql (U)Ord ered By: Deep Dela Cruz on 09-11-2024 Nitrite Ql (U) Positive High Negative [facility] Protein Test strip Ql (U)Ord ered By: Deep Dela Cruz on 09-11-2024 Protein Ql (U) 100 mg/dl High Negative [facility] Squamous epithelial cells de tection in urine sediment by light microscopyOrdered By: Deep Dela Cruz on 09-11-2024 Epithelial cells.squamous LM Ql (Urine sed) 0 SEEN /hpf 5-10 [facility] Triple phosphate crystals de tection in urine sediment by light microscopyOrdered By: Deep Dela Cruz on 09-11-2024 Triple phosphate crystals LM Ql (Urine sed) 1+ /hpf [facility] Urine clarityOrdered By: Janet Dela Cruz on 09-11-2024 Clarity (U) Turbid Clear [facility] Urine color determinationOrd ered By: Deep Dela Cruz on 09-11-2024 Color (U) Yellow Yellow [facility] Urine cultureOrdered By: Janet Dela Cruz on 09-11-2024 Bacteria identified Cx Nom (U) Morganella morganii sp morgani Abnormal [facility] Bacteria identified Cx Nom (U) Klebsiella pneumoniae sp pneum Abnormal [facility] Urine glucose detectionOrder ed By: Deep Dela Cruz on 09-11-2024 Glucose Ql (U) Normal mg/dl Normal [facility] Urine leukocyte esterase det ection by dipstickOrdered By: Deep Dela Cruz on 09-11-2024 Leukocyte esterase Test strip Ql (U) 500 /ul High Negative [facility] Urine pHOrdered By: Deep hayes on 09-11-2024 pH (U) 8.0 [pH] 5.0 - 8.0 [facility] Urine sediment bacteria coun t by microscopy (number/high power field)Ordered By: Deep Dela Cruz on 09-11-2024 Bacteria LM.HPF (Urine sed) [#/Area] 3 /[HPF] None Seen [facility] Urine specific gravity measu rementOrdered By: Deep Dela Cruz on 09-11-2024 Specific gravity (U) [Rel density] 1.010 1.002-1.030 [facility] Urine urobilinogen measureme ntOrdered By: Deep Dela Cruz on 09-11-2024 Urobilinogen Ql (U) Normal mg/dl Normal [facility] White blood cell countOrdere d By: Deep Dela Cruz on 09-11-2024 White blood cell count 10-25 SEEN /hpf 0-5 [facility] Anion gap in Serum or Plasma Ordered By: Deep Dela Cruz on 08-11-2024 Anion gap [Moles/Vol] 10 mmol/L 5-15 [facility] BUN/creatinine ratioOrdered By: Deep Dela Cruz on 08-11-2024 Urea nitrogen/Creatinine [Mass ratio] 29.2 mg/mg High 10-20 [facility] Basic Metabolic Profile (BMP )on 08-11-2024 BUN/CRE 29.2 RATIO High - [facility] Comment on above: Order Comment: 303.2 Performed By: #### L 501.9985, L500.2500 ####[facility] [address] [place], [address] Calcium [Mass/Vol] 8.6 mg/dL Normal 7.6-11.0 [facility] Comment on above: Order Comment: 303.2 Performed By: #### L 501.9985, L500.2500 ####[facility] [address] [place], [address] Chloride [Moles/Vol] 103 mmol/L Normal 98-108 [facility] Comment on above: Order Comment: 303.2 Performed By: #### L 501.9985, L500.2500 ####[facility] [address] [place], [address] CO2 [Moles/Vol] 24.2 mmol/L Normal 21.0-32.0 [facility] Comment on above: Order Comment: 303.2 Performed By: #### L 501.9985, L500.2500 ####[facility] [address] [place], [address] Creatinine [Mass/Vol] 0.47 mg/dL Low 0.70-1.20 [facility] Comment on above: Order Comment: 303.2 Performed By: #### L 501.9985, L500.2500 ####[facility] [address] [place], [address] GAP 10 Normal 5-15 [facility] Comment on above: Order Comment: 303.2 Performed By: #### L 501.9985, L500.2500 ####[facility] [address] [place], [address] GFR/1.73 sq M.predicted among non-blacks MDRD (S/P/Bld) [Vol rate/Area] 95 mL/min/{1.73_m2} Normal >60 [facility] Comment on above: Order Comment: 303.2 Result Comment: mL/m in/1.73m2 CKD-EPI Creatinine Equation (2020) Performed By: #### L 501.9985, L500.2500 ####[facility] [address] [place], [address] Glucose [Mass/Vol] 77 mg/dL Normal 70-99 [facility] Comment on above: Order Comment: 303.2 Performed By: #### L 501.9985, L500.2500 ####[facility] [address] [place], [address] Potassium [Moles/Vol] 3.7 mmol/L Normal 3.3-5.1 [facility] Comment on above: Order Comment: 303.2 Performed By: #### L 501.9985, L500.2500 ####[facility] [address] [place], [address] Sodium [Moles/Vol] 137 mmol/L Normal 133-145 [facility] Comment on above: Order Comment: 303.2 Performed By: #### L 501.9985, L500.2500 ####[facility] [address] [place], [address] Urea nitrogen [Mass/Vol] 14 mg/dL Normal 4-19 [facility] Comment on above: Order Comment: 303.2 Performed By: #### L 501.9985, L500.2500 ####[facility] [address] [place], [address] Carbon dioxide, total [Moles /volume] in Central venous bloodOrdered By: Deep Dela Cruz on 08-11-2024 CO2 [Moles/Vol] 24.2 mmol/L 21.0-32.0 [facility] Chloride assayOrdered By: Fried on 08-11-2024 Chloride [Moles/Vol] 103 mmol/L 98-108 [facility] GFR/1.73 sq M.predicted radha g non-blacks MDRD (S/P/Bld) [Vol rate/Area]Ordered By: Deep Dela Cruz on 08-11-2024 Estimated GFR (MDRD) Non-Af Amer 95 >60 [facility] Comment on above: mL/min/1.73m2 CKD-EP I Creatinine Equation (2020) Glomerular filtration rate ( GFR) estimation/1.73 sq m using serum, plasma, or whole bOrdered By: Deep Dela Cruz on 08-11-2024 GFR/1.73 sq M.predicted among non-blacks MDRD (S/P/Bld) [Vol rate/Area] 95 mL/min/{1.73_m2} >60 [facility] Comment on above: mL/min/1.73m2 CKD-EP I Creatinine Equation (2020) Hemoglobin A1con 08-11-2024 HbA1c (Bld) [Mass fraction] 6.6 % Normal <=5.6 [facility] Comment on above: Order Comment: 303.2 Performed By: #### L 501.9985, L500.2500 ####[facility] [address] [place], [address] Hemoglobin A1c percentageOrd ered By: Deep Dela Cruz on 08-11-2024 HbA1c (Bld) [Mass fraction] 6.6 % >5.7 [facility] Potassium (Unsp spec) [Mass/ Vol]Ordered By: Deep Dela Cruz on 08-11-2024 Potassium [Moles/Vol] 3.7 mmol/L 3.3-5.1 [facility] Potassium measurement (mass/ volume)Ordered By: Deep Dela Cruz on 08-11-2024 Potassium (Unsp spec) [Mass/Vol] 3.7 mmol/L 3.3-5.1 [facility] Serum creatinine measurement (mass/volume)Ordered By: Deep Dela Cruz on 08-11-2024 Creatinine [Mass/Vol] 0.47 mg/dL Low 0.70-1.20 [facility] Serum glucose measurement (m ass/volume)Ordered By: Deep Dela Cruz on 08-11-2024 Glucose [Mass/Vol] 77 mg/dL 70-99 [facility] Serum or plasma calcium jessi urement (mass/volume)Ordered By: Deep Dela Cruz on 08-11-2024 Calcium [Mass/Vol] 8.6 mg/dL 7.6-11.0 [facility] Serum or plasma urea nitroge n measurement (mass/volume)Ordered By: Deep Dela Cruz on 08-11-2024 Urea nitrogen [Mass/Vol] 14 mg/dL 4-19 [facility] Sodium levelOrdered By: Deep Dela Cruz on 08-11-2024 Sodium [Moles/Vol] 137 mmol/L 133-145 [facility] L503.7505on 08-08-2024 Natriuretic peptide B (Bld) [Mass/Vol] 1235 pg/mL Normal <=1800 [facility] Comment on above: Order Comment: 303.2 Result Comment: Hear t Failure Unlikely: < 300 pg/mLHeart Failure Likely< 50 Years: > 450 pg/mL50-75 Years: > 900 pg/mL>75 Years: > 1800 pg/mL Performed By: #### L 503.7505 ####[facility] [address] [place], [address] Laboratory - Chemistry and C hemistry - challengeOrdered By: Deep Dela Cruz on 08-08-2024 Natriuretic peptide B (Bld) [Mass/Vol] 1235 pg/mL <1800 [facility] Comment on above: Heart Failure Unlike ly: < 300 pg/mLHeart Failure Likely< 50 Years: > 450 pg/mL50-75 Years: > 900 pg/mL>75 Years: > 1800 pg/mL CNOVon 08-03-2024 CNOV Normal [facility] CT HEAD WO IV CONTRASTon CT HEAD WO IV CONTRAST Patient Name: MIR[facility] DE LA GARZA : 1940 [id number] Exam Date/Time: 08/02/2024 12:03 Procedure: CT HEAD WO IV CONTRAST Ordering Provider: JONES ENYINNA Reason For Exam: intracranial bleed Reasons for examination: History of intracranial bleed Axial unenhanced scans of the brain were obtained. Dose reduction was employed with automated exposure control. No comparison studies available. The patient has baseline moderate parenchymal volume loss and remote appearing small vessel ischemic / neurodegenerative changes in the periventricular and subcortical white matter of the cerebral hemispheres. There are dilated perivascular spaces. There is no mass lesion or brain edema. There is no hemorrhage with prior large right-sided frontotemporal craniotomy. There is no definite evidence of acute infarction. There is no shift or herniation. The brainstem and cerebellum are unremarkable. Bone window images demonstrate no significant abnormalities. The paranasal sinuses and mastoids are unremarkable with cerumen right external auditory canal. IMPRESSION: 1. 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 2. No definite evidence of acute infarction, mass lesion, nor hemorrhage with moderate intracranial vascular calcification. Report Dictated on Electronically Signed By: Abhinav Loyola MD Electronically Signed Date/Time: 08/02/2024 6:14 PM EST Follow up nontraumatic intracranial hemorrhage. Pt poor historian Normal [facility] CT Head WO contraston 2024 1. 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 2. No definite evidence of acute infarction, mass lesion, nor hemorrhage with moderate intracranial vascular calcification. Report Dictated on Electronically Signed By: Abhinav Loyola MD Electronically Signed Date/Time: 08/02/2024 6:14 PM EST [facility] Patient Name: MIRIAM SAEED : 1940 Exam Date/Time: 08/02/2024 12:03 Procedure: CT HEAD WO IV CONTRAST Ordering Provider: JONES ENYINNA Reason For Exam: intracranial bleed Reasons for examination: History of intracranial bleed Axial unenhanced scans of the brain were obtained. Dose reduction was employed with automated exposure control. No comparison studies available. The patient has baseline moderate parenchymal volume loss and remote appearing small vessel ischemic / neurodegenerative changes in the periventricular and subcortical white matter of the cerebral hemispheres. There are dilated perivascular spaces. There is no mass lesion or brain edema. There is no hemorrhage with prior large right-sided frontotemporal craniotomy. There is no definite evidence of acute infarction. There is no shift or herniation. The brainstem and cerebellum are unremarkable. Bone window images demonstrate no significant abnormalities. The paranasal sinuses and mastoids are unremarkable with cerumen right external auditory canal. [facility] Abhinav Loyola MD - 08/02/2024 Patient Name: MIRIAM DAVENPORT : 1940 Exam Date/Time: 08/02/2024 12:03 Procedure: CT HEAD WO IV CONTRAST Ordering Provider: JONES ENYINNA Reason For Exam: intracranial bleed Reasons for examination: History of intracranial bleed Axial unenhanced scans of the brain were obtained. Dose reduction was employed with automated exposure control. No comparison studies available. The patient has baseline moderate parenchymal volume loss and remote appearing small vessel ischemic / neurodegenerative changes in the periventricular and subcortical white matter of the cerebral hemispheres. There are dilated perivascular spaces. There is no mass lesion or brain edema. There is no hemorrhage with prior large right-sided frontotemporal craniotomy. There is no definite evidence of acute infarction. There is no shift or herniation. The brainstem and cerebellum are unremarkable. Bone window images demonstrate no significant abnormalities. The paranasal sinuses and mastoids are unremarkable with cerumen right external auditory canal. IMPRESSION: 1. 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 2. No definite evidence of acute infarction, mass lesion, nor hemorrhage with moderate intracranial vascular calcification. Report Dictated on Electronically Signed By: Abhinav Loyola MD Electronically Signed Date/Time: 08/02/2024 6:14 PM EST [facility] [employer] ([facility]) Radiology Study observation (narrative) [facility] He alth CT Head WO contrastOrdered B y: Abhinav Loyola on 08-02-2024 [facility] [employer] [facility] Work Phone: CNPNon 08-01-2024 CNPN Normal [facility] Comprehensive Metabolic Prof ilon 07-27-2024 Chloride [Moles/Vol] 102 mmol/L Normal 98-107 [facility] Comment on above: Performed By: #### L 500.4050, L100.0500, L501.9985 ####[facility] [address] [place], [address] CO2 [Moles/Vol] 20.6 mmol/L Low 21.0-32.0 [facility] Comment on above: Performed By: #### L 500.4050, L100.0500, L501.9985 ####[facility] [address] [place], [address] GAP 13 Normal 5-15 [facility] Comment on above: Performed By: #### L 500.4050, L100.0500, L501.9985 ####[facility] [address] [place], [address] Potassium [Moles/Vol] 4.5 mmol/L Normal 3.5-5.1 [facility] Comment on above: Performed By: #### L 500.4050, L100.0500, L501.9985 ####[facility] [address] [place], [address] Calcium [Mass/Vol] 8.5 mg/dL Normal 7.6-11.0 [facility] Comment on above: Performed By: #### L 500.4050, L100.0500, L501.9985 ####[facility] [address] [place], [address] EST GFR - AA TNP Normal >60 [facility] Comment on above: Performed By: #### L 500.4050, L100.0500, L501.9985 ####[facility] [address] [place], [address] Sodium [Moles/Vol] 136 mmol/L Normal 136-145 [facility] Comment on above: Performed By: #### L 500.4050, L100.0500, L501.9985 ####[facility] [address] [place], [address] BUN/creatinine ratioOrdered By: Deep Dela Cruz on 07-26-2024 Urea nitrogen/Creatinine [Mass ratio] 33.7 mg/mg High 10-20 [facility] Comment on above: Previous reported re sult: 32.5 RATIOEdited by: ERWIN on 07/27/24:1224 AMENDED REPORT 07/27/24 1224 BUN/CRE previously reported as: 32.5 H RATIO Bilirubin, totalOrdered By: Deep Dela Cruz on 07-26-2024 Bilirubin [Mass/Vol] mg/dL 0.00-1.30 [facility] Comment on above: Previous reported re sult: 0.18 mg/dLEdited by: ERWIN on 07/27/24:1224 AMENDED REPORT 07/27/24 1224 T BILI previously reported as: 0.18 mg/dL CBC-Complete Blood Cnt No Di ffon 07-26-2024 Erythrocyte distribution width (RBC) [Ratio] 16.2 % High 11.6-14.6 [facility] Comment on above: Performed By: #### L 500.4050, L100.0500, L501.9985 ####[facility] [address] [place], [address] Hematocrit (Bld) [Volume fraction] 36.6 % Low 37-47 [facility] Comment on above: Performed By: #### L 500.4050, L100.0500, L501.9985 ####[facility] [address] [place], [address] Hemoglobin (Bld) [Mass/Vol] 11.2 g/dL Low 12.0-15.0 [facility] Comment on above: Performed By: #### L 500.4050, L100.0500, L501.9985 ####[facility] [address] [place], [address] MCH (RBC) [Entitic mass] 27.7 pg Normal 27.0-32.0 [facility] Comment on above: Performed By: #### L 500.4050, L100.0500, L501.9985 ####[facility] [address] [place], [address] MCHC (RBC) [Mass/Vol] 30.6 g/dL Low 32-36 [facility] Comment on above: Performed By: #### L 500.4050, L100.0500, L501.9985 ####[facility] [address] [place], [address] MCV (RBC) [Entitic vol] 90.4 fL Normal 81-99 [facility] Comment on above: Performed By: #### L 500.4050, L100.0500, L501.9985 ####[facility] [address] [place], [address] Platelet mean volume (Bld) [Entitic vol] 11.1 fL Normal 6.2-12.0 [facility] Comment on above: Performed By: #### L 500.4050, L100.0500, L501.9985 ####[facility] [address] [place], [address] Platelets (Bld) [#/Vol] 205 10*3/uL Normal 150-450 [facility] Comment on above: Performed By: #### L 500.4050, L100.0500, L501.9985 ####[facility] [address] [place], [address] RBC (Bld) [#/Vol] 4.05 10*6/uL Low 4.2-5.4 [facility] Comment on above: Performed By: #### L 500.4050, L100.0500, L501.9985 ####[facility] [address] [place], [address] RDW SD 54.1 fl High 35.1-43.9 [facility] Comment on above: Performed By: #### L 500.4050, L100.0500, L501.9985 ####[facility] [address] [place], [address] WBC (Bld) [#/Vol] 5.4 10*3/uL Normal 4.4-11.0 [facility] Comment on above: Performed By: #### L 500.4050, L100.0500, L501.9985 ####[facility] [address] [place], [address] Creatinine [Moles/Vol]Ordere d By: Deep Dela Cruz on 07-26-2024 Creatinine [Mass/Vol] 0.5 mg/dL Low 0.6-1.0 [facility] Estimated glomerular filtrat ion rate (GFR) AmericanOrdered By: Deep Dela Cruz on 07-26-2024 Estimated GFR (MDRD) Amer TNP [facility] Comment on above: Test not performed GFR/1.73 sq M.predicted radha g non-blacks MDRD (S/P/Bld) [Vol rate/Area]Ordered By: Deep Dela Cruz on 07-26-2024 Estimated GFR (MDRD) Non-Af Amer 95 >60 [facility] Comment on above: mL/min/1.73m2 CKD-EP I Creatinine Equation (2020) Glomerular filtration rate ( GFR) estimation/1.73 sq m using serum, plasma, or whole bOrdered By: Deep Dela Cruz on 07-26-2024 GFR/1.73 sq M.predicted among non-blacks MDRD (S/P/Bld) [Vol rate/Area] 95 mL/min/{1.73_m2} >60 [facility] Comment on above: mL/min/1.73m2 CKD-EP I Creatinine Equation (2020) Hemoglobin A1con 07-26-2024 HbA1c (d) [Mass fraction] 6.4 % Normal <=5.6 [facility] Comment on above: Order Comment: 303.2 Performed By: #### L 500.4050, L100.0500, L501.9985 ####[facility] [address] [place], [address] Laboratory - Chemistry and C hemistry - challengeOrdered By: Deep Dela Cruz on 07-26-2024 AST [Catalytic activity/Vol] 29 U/L <32 [facility] Potassium measurementOrdered By: Deep Dela Cruz on 07-26-2024 Potassium [Moles/Vol] 4.5 mmol/L 3.5-5.1 [facility] Serum anion gap measurementO rdered By: Deep Dela Cruz on 07-26-2024 Anion gap [Moles/Vol] 13 mmol/L 5-15 [facility] Serum globulin measurementOr dered By: Deep Dela Cruz on 07-26-2024 Globulin (S) [Mass/Vol] 3.5 g/dL 2.2-4.2 [facility] Comment on above: Previous reported re sult: 3.2 g/dLEdited by: ERWIN on 07/27/24:1224 AMENDED REPORT 07/27/24 1224 GLOB previously reported as: 3.2 g/dL Serum glucose measurement (m ass/volume)Ordered By: Deep Dela Cruz on 07-26-2024 Glucose [Mass/Vol] 68 mg/dL Low 70-99 [facility] Comment on above: Previous reported re sult: 74 mg/dLEdited by: ERWIN on 07/27/24:1224 AMENDED REPORT 07/27/24 1224 GLU previously reported as: 74 mg/dL Serum or plasma alanine wilson otransferase (ALT) measurementOrdered By: Deep Dela Cruz on 07-26-2024 ALT [Catalytic activity/Vol] 9 U/L <35 [facility] Comment on above: Previous reported re sult: 10 U/LEdited by: ERWIN on 07/27/24:1224 AMENDED REPORT 07/27/24 1224 ALT previously reported as: 10 U/L Serum or plasma albumin jessi urement (mass/volume)Ordered By: Deep Dela Cruz on 07-26-2024 Albumin [Mass/Vol] 2.3 g/dL Low 3.4-4.8 [facility] Serum or plasma albumin/glob ulin mass ratioOrdered By: Deep Dela Cruz on 07-26-2024 Albumin/Globulin [Mass ratio] 0.7 {ratio} Low 0.9-2.4 [facility] Serum or plasma alkaline jero sphatase measurementOrdered By: Deep Dela Cruz on 07-26-2024 ALP [Catalytic activity/Vol] 156 U/L High 35-104 [facility] Comment on above: Previous reported re sult: 153 U/LEdited by: ERWIN on 07/27/24:1224 AMENDED REPORT 07/27/24 1224 ALK P previously reported as: 153 H U/L Serum or plasma calcium jessi urement (mass/volume)Ordered By: Deep Dela Cruz on 07-26-2024 Calcium [Mass/Vol] 8.5 mg/dL 7.6-11.0 [facility] Serum or plasma carbon dioxi de measurement (moles/volume)Ordered By: Deep Dela Cruz on 07-26-2024 CO2 [Moles/Vol] 20.6 mmol/L Low 21.0-32.0 [facility] Serum or plasma chloride michelle surement (moles/volume)Ordered By: Deep Dela Cruz on 07-26-2024 Chloride [Moles/Vol] 102 mmol/L 98-107 [facility] Serum or plasma creatinine m easurement (moles/volume)Ordered By: Deep Dela Cruz on 07-26-2024 Creatinine [Moles/Vol] 0.5 mg/dL Low 0.6-1.0 [facility] Serum or plasma urea nitroge n measurement (mass/volume)Ordered By: Deep Dela Cruz on 07-26-2024 Urea nitrogen [Mass/Vol] 17 mg/dL 4-19 [facility] Comment on above: Previous reported re sult: 16 mg/dLEdited by: ERWIN on 07/27/24:1224 AMENDED REPORT 07/27/24 1224 BUN previously reported as: 16 mg/dL Sodium levelOrdered By: Deep Dela Cruz on 07-26-2024 Sodium [Moles/Vol] 136 mmol/L 136-145 [facility] Total proteinOrdered By: Janet Dela Cruz on 07-26-2024 Protein [Mass/Vol] 5.8 g/dL Low 5.9-8.4 [facility] Comment on above: Previous reported re sult: 5.5 g/dLEdited by: ERWIN on 07/27/24:1224 AMENDED REPORT 07/27/24 1224 T PROT previously reported as: 5.5 L g/dL Erythrocyte distribution wid th (RBC) [Ratio]Ordered By: Deep Dela Cruz on 07-25-2024 Erythrocyte distribution width (RBC) [Entitic vol] 54.1 fL High 35.1-43.9 [facility] Erythrocyte distribution wid th ratioOrdered By: Deep Dela Cruz on 07-25-2024 Erythrocyte distribution width (RBC) [Ratio] 16.2 % High 11.6-14.6 [facility] Erythrocyte distribution wid th standard deviationOrdered By: Deep Dela Cruz on 07-25-2024 Erythrocyte distribution width (RBC) [Ratio] 54.1 fl High 35.1-43.9 [facility] Hematocrit Auto (Bld) [Volum e fraction]Ordered By: Deep Dela Cruz on 07-25-2024 Hematocrit (Bld) [Volume fraction] 36.6 % Low 37-47 [facility] Hemoglobin A1c percentageOrd ered By: Deep Dela Cruz on 07-25-2024 HbA1c (Bld) [Mass fraction] 6.4 % >5.7 [facility] Hemoglobin measurementOrdere d By: Deep Dela Cruz on 07-25-2024 Hemoglobin (Bld) [Mass/Vol] 11.2 g/dL Low 12.0-15.0 [facility] MCV (mean corpuscular volume ) determinationOrdered By: Deep Dela Cruz on 07-25-2024 MCV (RBC) [Entitic vol] 90.4 fL 81-99 [facility] Mean corpuscular hemoglobin (MCH) determinationOrdered By: Deep Dela Cruz on 07-25-2024 MCH (RBC) [Entitic mass] 27.7 pg 27.0-32.0 [facility] Mean corpuscular hemoglobin concentration (MCHC) determinationOrdered By: Deep Dela Cruz on 07-25-2024 MCHC (RBC) [Mass/Vol] 30.6 g/dL Low 32-36 [facility] Mean platelet volume determi nationOrdered By: Deep Dela Cruz on 07-25-2024 Platelet mean volume (Bld) [Entitic vol] 11.1 fL 6.2-12.0 [facility] Platelet countOrdered By: Fried on 07-25-2024 Platelets (Bld) [#/Vol] 205 10*3/uL 150-450 [facility] RBC Auto (Bld) [#/Vol]Ordere d By: Deep Dela Cruz on 07-25-2024 RBC (Bld) [#/Vol] 4.05 10*6/uL Low 4.2-5.4 [facility] White blood cell (WBC) count Ordered By: Deep Dela Cruz on 07-25-2024 WBC (Bld) [#/Vol] 5.4 10*3/uL 4.4-11.0 [facility] Basic Metabolic Profile (BMP )on 07-10-2024 BUN/CRE 43.1 RATIO High 10-20 [facility] Comment on above: Order Comment: 303.2 Performed By: #### L 100.0500, L500.2500 ####[facility] [address] [place], [address] CA,Total 8.6 mg/dL Normal 8.5-10.1 [facility] Comment on above: Order Comment: 303.2 Performed By: #### L 100.0500, L500.2500 ####[facility] [address] [place], [address] Chloride [Moles/Vol] 103 mmol/L Normal 98-107 [facility] Comment on above: Order Comment: 303.2 Performed By: #### L 100.0500, L500.2500 ####[facility] [address] [place], [address] CO2 [Moles/Vol] 28.0 mmol/L Normal 21.0-32.0 [facility] Comment on above: Order Comment: 303.2 Performed By: #### L 100.0500, L500.2500 ####[facility] [address] [place], [address] Creatinine [Mass/Vol] 0.44 mg/dL Low 0.55-1.02 [facility] Comment on above: Order Comment: 303.2 Result Comment: The validity of the calculated GFR GFRAA in patients over70 years has not been determined. Clinical correlation isessential. Performed By: #### L 100.0500, L500.2500 ####[facility] [address] [place], [address] EST GFR - AA 175 mL/min Normal >60 [facility] Comment on above: Order Comment: 303.2 Result Comment: Afri can Irish GFR Calc Performed By: #### L 100.0500, L500.2500 ####[facility] [address] [place], [address] GAP 6 Normal 5-15 [facility] Comment on above: Order Comment: 303.2 Performed By: #### L 100.0500, L500.2500 ####[facility] [address] [place], [address] GFR/1.73 sq M.predicted among non-blacks MDRD (S/P/Bld) [Vol rate/Area] 145 mL/min/{1.73_m2} Normal >60 [facility] Comment on above: Order Comment: 303.2 Result Comment: Non- GFR Calc Performed By: #### L 100.0500, L500.2500 ####[facility] [address] [place], [address] Glucose [Mass/Vol] 103 mg/dL Normal 74-106 [facility] Comment on above: Order Comment: 303.2 Result Comment: Fast ing Glucose result from 100 to 125 mg/dLsuggests IMPAIRED HOMEOSTASIS per A.D.A. criteria. Performed By: #### L 100.0500, L500.2500 ####[facility] [address] [place], [address] Potassium [Moles/Vol] 3.7 mmol/L Normal 3.5-5.1 [facility] Comment on above: Order Comment: 303.2 Performed By: #### L 100.0500, L500.2500 ####[facility] [address] [place], [address] Sodium [Moles/Vol] 137 mmol/L Normal 136-145 [facility] Comment on above: Order Comment: 303.2 Performed By: #### L 100.0500, L500.2500 ####[facility] [address] [place], [address] Urea nitrogen [Mass/Vol] 19 mg/dL High 7-18 [facility] Comment on above: Order Comment: 303.2 Performed By: #### L 100.0500, L500.2500 ####[facility] [address] [place], [address] Blood urea nitrogen (BUN)/cr eatinine ratioOrdered By: Deep Dela Cruz on 07-10-2024 Urea nitrogen/Creatinine [Mass ratio] 43.1 mg/mg High 10-20 [facility] CBC-Complete Blood Cnt No Di ffon 07-10-2024 Erythrocyte distribution width (RBC) [Ratio] 14.9 % High 11.6-14.6 [facility] Comment on above: Order Comment: 303.2 Performed By: #### L 100.0500, L500.2500 ####[facility] [address] [place], [address] Hematocrit (Bld) [Volume fraction] 31.3 % Low 37-47 [facility] Comment on above: Order Comment: 303.2 Performed By: #### L 100.0500, L500.2500 ####[facility] [address] [place], [address] Hemoglobin (Bld) [Mass/Vol] 10.0 g/dL Low 12.0-15.0 [facility] Comment on above: Order Comment: 303.2 Performed By: #### L 100.0500, L500.2500 ####[facility] [address] [place], [address] MCH (RBC) [Entitic mass] 28.7 pg Normal 27.0-32.0 [facility] Comment on above: Order Comment: 303.2 Performed By: #### L 100.0500, L500.2500 ####[facility] [address] [place], [address] MCHC (RBC) [Mass/Vol] 31.9 g/dL Low 32-36 [facility] Comment on above: Order Comment: 303.2 Performed By: #### L 100.0500, L500.2500 ####[facility] [address] [place], [address] MCV (RBC) [Entitic vol] 89.9 fL Normal 81-99 [facility] Comment on above: Order Comment: 303.2 Performed By: #### L 100.0500, L500.2500 ####[facility] [address] [place], [address] Platelet mean volume (Bld) [Entitic vol] 10.7 fL Normal 6.2-12.0 [facility] Comment on above: Order Comment: 303.2 Performed By: #### L 100.0500, L500.2500 ####[facility] [address] [place], [address] Platelets (Bld) [#/Vol] 397 10*3/uL Normal 150-450 [facility] Comment on above: Order Comment: 303.2 Performed By: #### L 100.0500, L500.2500 ####[facility] [address] [place], [address] RBC (Bld) [#/Vol] 3.48 10*6/uL Low 4.2-5.4 [facility] Comment on above: Order Comment: 303.2 Performed By: #### L 100.0500, L500.2500 ####[facility] [address] [place], [address] RDW SD 49.5 fl High 35.1-43.9 [facility] Comment on above: Order Comment: 303.2 Performed By: #### L 100.0500, L500.2500 ####[facility] [address] [place], [address] WBC (Bld) [#/Vol] 18.3 10*3/uL High 4.4-11.0 [facility] Comment on above: Order Comment: 303.2 Performed By: #### L 100.0500, L500.2500 ####[facility] [address] [place], [address] Carbon dioxide measurementOr dered By: Deep Dela Cruz on 07-10-2024 CO2 [Moles/Vol] 28.0 mmol/L 21.0-32.0 [facility] Chloride measurementOrdered By: Deep Dela Cruz on 07-10-2024 Chloride [Moles/Vol] 103 mmol/L 98-107 [facility] Erythrocyte distribution wid th (RBC) [Ratio]Ordered By: Deep Dela Cruz on 07-10-2024 Erythrocyte distribution width (RBC) [Entitic vol] 49.5 fL High 35.1-43.9 [facility] Erythrocyte distribution wid th ratioOrdered By: Deep Dela Cruz on 07-10-2024 Erythrocyte distribution width (RBC) [Ratio] 14.9 % High 11.6-14.6 [facility] Erythrocyte distribution wid th standard deviationOrdered By: Deep Dela Cruz on 07-10-2024 Erythrocyte distribution width (RBC) [Ratio] 49.5 fl High 35.1-43.9 [facility] Estimated glomerular filtrat ion rate (GFR) AmericanOrdered By: Deep Dela Cruz on 07-10-2024 Estimated GFR (MDRD) Amer 175 mL/min >60 [facility] Comment on above: GFR Calc Glomerular filtration rate ( GFR) estimationOrdered By: Deep Dela Cruz on 07-10-2024 Estimated GFR (MDRD) Non-Af Amer 145 mL/min >60 [facility] Comment on above: Non- GFR Calc GFR/1.73 sq M.predicted among non-blacks MDRD (S/P/Bld) [Vol rate/Area] 145 mL/min/{1.73_m2} >60 [facility] Comment on above: Non- GFR Calc Glucose measurementOrdered B y: Deep Dela Cruz on 07-10-2024 Glucose [Mass/Vol] 103 mg/dL 74-106 [facility] Comment on above: Fasting Glucose resu lt from 100 to 125 mg/dL suggests IMPAIRED HOMEOSTASIS per A.D.A. criteria. Hematocrit Auto (Bld) [Volum e fraction]Ordered By: Deep Dela Cruz on 07-10-2024 Hematocrit (Bld) [Volume fraction] 31.3 % Low 37-47 [facility] Hemoglobin measurementOrdere d By: Deep Dela Curz on 07-10-2024 Hemoglobin (Bld) [Mass/Vol] 10.0 g/dL Low 12.0-15.0 [facility] MCV (mean corpuscular volume ) determinationOrdered By: Deep Dela Cruz on 07-10-2024 MCV (RBC) [Entitic vol] 89.9 fL 81-99 [facility] Mean corpuscular hemoglobin (MCH) determinationOrdered By: Deep Dela Cruz on 07-10-2024 MCH (RBC) [Entitic mass] 28.7 pg 27.0-32.0 [facility] Mean corpuscular hemoglobin concentration (MCHC) determinationOrdered By: Deep Dela Cruz on 07-10-2024 MCHC (RBC) [Mass/Vol] 31.9 g/dL Low 32-36 [facility] Mean platelet volume determi nationOrdered By: Deep Dela Cruz on 07-10-2024 Platelet mean volume (Bld) [Entitic vol] 10.7 fL 6.2-12.0 [facility] Platelet countOrdered By: Fried on 07-10-2024 Platelets (Bld) [#/Vol] 397 10*3/uL 150-450 [facility] Potassium measurementOrdered By: Deep Dela Cruz on 07-10-2024 Potassium [Moles/Vol] 3.7 mmol/L 3.5-5.1 [facility] RBC Auto (Bld) [#/Vol]Ordere d By: Deep Dela Cruz on 07-10-2024 RBC (Bld) [#/Vol] 3.48 10*6/uL Low 4.2-5.4 [facility] Serum anion gap measurementO rdered By: Deep Dela Cruz on 07-10-2024 Anion gap [Moles/Vol] 6 mmol/L 5-15 [facility] Serum or plasma calcium jessi urement (mass/volume)Ordered By: Deep Dela Cruz on 07-10-2024 Calcium [Mass/Vol] 8.6 mg/dL 8.5-10.1 [facility] Serum or plasma creatinine m easurement (mass/volume)Ordered By: Deep Dela Cruz on 07-10-2024 Creatinine [Mass/Vol] 0.44 mg/dL Low 0.55-1.02 [facility] Comment on above: The validity of the calculated GFR & GFRAA in patients over 70 years has not been determined. Clinical correlation is essential. Serum or plasma urea nitroge n measurement (mass/volume)Ordered By: Deep Dela Cruz on 07-10-2024 Urea nitrogen [Mass/Vol] 19 mg/dL High 7-18 [facility] Sodium levelOrdered By: Deep Dela Cruz on 07-10-2024 Sodium [Moles/Vol] 137 mmol/L 136-145 [facility] White blood cell (WBC) count Ordered By: Deep Dela Cruz on 07-10-2024 WBC (Bld) [#/Vol] 18.3 10*3/uL High 4.4-11.0 [facility] Absolute lymphocyte countOrd ered By: Deep Dela Cruz on 06-20-2024 Lymphocytes Auto (Unsp spec) [#/Vol] 1.17 10*3/uL 0.83-4.51 [facility] Absolute neutrophil countOrd ered By: Deep Dela Cruz on 06-20-2024 Neutrophils (Bld) [#/Vol] 5.5 10*3/uL 2.0-7.7 [facility] Albumin to globulin ratioOrd ered By: Deep Dela Cruz on 06-20-2024 Albumin/Globulin [Mass ratio] 0.5 {ratio} Low 0.9-2.4 [facility] Automated lymphocyte count a s percentage of total leukocytesOrdered By: Deep Dela Cruz on 06-20-2024 Lymphocytes/100 WBC Auto (Unsp spec) 14.7 % Low 19-41 [facility] Basophil percentageOrdered B y: Deep Dela Cruz on 06-20-2024 Basophils/100 WBC (Bld) 1.1 % High 0-1 [facility] Bilirubin, totalOrdered By: Deep Dela Cruz on 06-20-2024 Bilirubin [Mass/Vol] 0.40 mg/dL 0.20-1.00 [facility] Comment on above: For patients on eltr ombopag therapy, use of [employer]ension [place] TBIL is not recommended. Blood urea nitrogen (BUN)/cr eatinine ratioOrdered By: Deep Dela Cruz on 06-20-2024 Urea nitrogen/Creatinine [Mass ratio] 30.9 mg/mg High 10-20 [facility] CBC W/Diff, Automatedon 06-01 Absolute Lymph 1.17 X10 3/uL Normal 0.83-4.51 [facility] Comment on above: Order Comment: 303.2 Performed By: #### L 500.4050, L100.0100 ####[facility] [address] [place], [address] Absolute Neut 5.5 X10 3/uL Normal 2.0-7.7 [facility] Comment on above: Order Comment: 303.2 Performed By: #### L 500.4050, L100.0100 ####[facility] [address] [place], [address] Basophils/100 WBC (Bld) 1.1 % High 0-1 [facility] Comment on above: Order Comment: 303.2 Performed By: #### L 500.4050, L100.0100 ####[facility] [address] [place], [address] Eosinophils/100 WBC (Bld) 3.0 % Normal 0-5 [facility] Comment on above: Order Comment: 303.2 Performed By: #### L 500.4050, L100.0100 ####[facility] [address] [place], [address] Erythrocyte distribution width (RBC) [Ratio] 15.1 % High 11.6-14.6 [facility] Comment on above: Order Comment: 303.2 Performed By: #### L 500.4050, L100.0100 ####[facility] [address] [place], [address] Hematocrit (Bld) [Volume fraction] 33.9 % Low 37-47 [facility] Comment on above: Order Comment: 303.2 Performed By: #### L 500.4050, L100.0100 ####[facility] [address] [place], [address] Hemoglobin (Bld) [Mass/Vol] 10.5 g/dL Low 12.0-15.0 [facility] Comment on above: Order Comment: 303.2 Performed By: #### L 500.4050, L100.0100 ####[facility] [address] [place], [address] IG% 0.500 Normal 0.0-0.9 [facility] Comment on above: Order Comment: 303.2 Result Comment: IG% - Immature Granulocytes (promyelocytes, myelocytes andmetamyelocytes) > 1% indicates that a LEFT SHIFT is Present. Performed By: #### L 500.4050, L100.0100 ####[facility] [address] [place], [address] Lymphocytes/100 WBC (Bld) 14.7 % Low 19-41 [facility] Comment on above: Order Comment: 303.2 Performed By: #### L 500.4050, L100.0100 ####[facility] [address] [place], [address] MCH (RBC) [Entitic mass] 28.8 pg Normal 27.0-32.0 [facility] Comment on above: Order Comment: 303.2 Performed By: #### L 500.4050, L100.0100 ####[facility] [address] [place], [address] MCHC (RBC) [Mass/Vol] 31.0 g/dL Low 32-36 [facility] Comment on above: Order Comment: 303.2 Performed By: #### L 500.4050, L100.0100 ####[facility] [address] [place], [address] MCV (RBC) [Entitic vol] 93.1 fL Normal 81-99 [facility] Comment on above: Order Comment: 303.2 Performed By: #### L 500.4050, L100.0100 ####[facility] [address] [place], [address] Monocytes/100 WBC (Bld) 11.2 % High 0-10 [facility] Comment on above: Order Comment: 303.2 Performed By: #### L 500.4050, L100.0100 ####[facility] [address] [place], [address] Neutrophils/100 WBC (Bld) 69.5 % Normal 47-70 [facility] Comment on above: Order Comment: 303.2 Performed By: #### L 500.4050, L100.0100 ####[facility] [address] [place], [address] Nucleated RBC (Bld) [#/Vol] 0 10*3/uL Normal 0-5 [facility] Comment on above: Order Comment: 303.2 Performed By: #### L 500.4050, L100.0100 ####[facility] [address] [place], [address] Platelet mean volume (Bld) [Entitic vol] 10.3 fL Normal 6.2-12.0 [facility] Comment on above: Order Comment: 303.2 Performed By: #### L 500.4050, L100.0100 ####[facility] [address] [place], [address] Platelets (Bld) [#/Vol] 299 10*3/uL Normal 150-450 [facility] Comment on above: Order Comment: 303.2 Performed By: #### L 500.4050, L100.0100 ####[facility] [address] [place], [address] RBC (Bld) [#/Vol] 3.64 10*6/uL Low 4.2-5.4 [facility] Comment on above: Order Comment: 303.2 Performed By: #### L 500.4050, L100.0100 ####[facility] [address] [place], [address] RDW SD 51.5 fl High 35.1-43.9 [facility] Comment on above: Order Comment: 303.2 Performed By: #### L 500.4050, L100.0100 ####[facility] [address] [place], [address] WBC (Bld) [#/Vol] 8.0 10*3/uL Normal 4.4-11.0 [facility] Comment on above: Order Comment: 303.2 Performed By: #### L 500.4050, L100.0100 ####[facility] [address] [place], [address] CDIFF (PCR)on 06-20-2024 CDIFF Pending [phone] NAP1-B1 Presumptive Negative *for epidemiolologic???use C. Diff PCR Negative- No toxigenic C. Diff Detected Normal [facility] Comment on above: Performed By: #### M 100.6796 ####[facility] [address] [place], [address] Carbon dioxide measurementOr dered By: Deep Dela Cruz on 06-20-2024 CO2 [Moles/Vol] 24.0 mmol/L 21.0-32.0 [facility] Chloride measurementOrdered By: Deep Dela Cruz on 06-20-2024 Chloride [Moles/Vol] 108 mmol/L High 98-107 [facility] Comprehensive Metabolic Prof ilon 06-20-2024 Albumin [Mass/Vol] 1.9 g/dL Low 3.2-5.0 [facility] Comment on above: Order Comment: 303.2 Performed By: #### L 500.4050, L100.0100 ####[facility] [address] [place], [address] Albumin/Globulin [Mass ratio] 0.5 {ratio} Low 0.9-2.4 [facility] Comment on above: Order Comment: 303.2 Performed By: #### L 500.4050, L100.0100 ####[facility] [address] [place], [address] ALK P 148 U/L High 45-117 [facility] Comment on above: Order Comment: 303.2 Performed By: #### L 500.4050, L100.0100 ####[facility] [address] [place], [address] ALT [Catalytic activity/Vol] 10 U/L Low 13-56 [facility] Comment on above: Order Comment: 303.2 Performed By: #### L 500.4050, L100.0100 ####[facility] [address] [place], [address] AST [Catalytic activity/Vol] 17 U/L Normal 15-37 [facility] Comment on above: Order Comment: 303.2 Performed By: #### L 500.4050, L100.0100 ####[facility] [address] [place], [address] Bilirubin [Mass/Vol] 0.40 mg/dL Normal 0.20-1.00 [facility] Comment on above: Order Comment: 303.2 Result Comment: For patients on eltrombopag therapy, use of [employer] [place] TBIL is not recommended. Performed By: #### L 500.4050, L100.0100 ####[facility] [address] [place], [address] BUN/CRE 30.9 RATIO High 10-20 [facility] Comment on above: Order Comment: 303.2 Performed By: #### L 500.4050, L100.0100 ####[facility] [address] [place], [address] CA,Total 8.7 mg/dL Normal 8.5-10.1 [facility] Comment on above: Order Comment: 303.2 Performed By: #### L 500.4050, L100.0100 ####[facility] [address] [place], [address] Chloride [Moles/Vol] 108 mmol/L High 98-107 [facility] Comment on above: Order Comment: 303.2 Performed By: #### L 500.4050, L100.0100 ####[facility] [address] [place], [address] CO2 [Moles/Vol] 24.0 mmol/L Normal 21.0-32.0 [facility] Comment on above: Order Comment: 303.2 Performed By: #### L 500.4050, L100.0100 ####[facility] [address] [place], [address] Creatinine [Mass/Vol] 0.42 mg/dL Low 0.55-1.02 [facility] Comment on above: Order Comment: 303.2 Result Comment: The validity of the calculated GFR GFRAA in patients over70 years has not been determined. Clinical correlation isessential. Performed By: #### L 500.4050, L100.0100 ####[facility] [address] [place], [address] EST GFR - AA 185 mL/min Normal >60 [facility] Comment on above: Order Comment: 303.2 Result Comment: Afri can Irish GFR Calc Performed By: #### L 500.4050, L100.0100 ####[facility] [address] [place], [address] GAP 8 Normal 5-15 [facility] Comment on above: Order Comment: 303.2 Performed By: #### L 500.4050, L100.0100 ####[facility] [address] [place], [address] GFR/1.73 sq M.predicted among non-blacks MDRD (S/P/Bld) [Vol rate/Area] 153 mL/min/{1.73_m2} Normal >60 [facility] Comment on above: Order Comment: 303.2 Result Comment: Non- GFR Calc Performed By: #### L 500.4050, L100.0100 ####[facility] [address] [place], [address] Globulin (S) [Mass/Vol] 4.1 g/dL Normal 2.2-4.2 [facility] Comment on above: Order Comment: 303.2 Performed By: #### L 500.4050, L100.0100 ####[facility] [address] [place], [address] Glucose [Mass/Vol] 104 mg/dL Normal 74-106 [facility] Comment on above: Order Comment: 303.2 Result Comment: Fast ing Glucose result from 100 to 125 mg/dLsuggests IMPAIRED HOMEOSTASIS per A.D.A. criteria. Performed By: #### L 500.4050, L100.0100 ####[facility] [address] [place], [address] Potassium [Moles/Vol] 3.8 mmol/L Normal 3.5-5.1 [facility] Comment on above: Order Comment: 303.2 Performed By: #### L 500.4050, L100.0100 ####[facility] [address] [place], [address] Sodium [Moles/Vol] 139 mmol/L Normal 136-145 [facility] Comment on above: Order Comment: 303.2 Performed By: #### L 500.4050, L100.0100 ####[facility] [address] [place], [address] T PROT 6.0 g/dL Low 6.4-8.2 [facility] Comment on above: Order Comment: 303.2 Performed By: #### L 500.4050, L100.0100 ####[facility] [address] [place], [address] Urea nitrogen [Mass/Vol] 13 mg/dL Normal 7-18 [facility] Comment on above: Order Comment: 303.2 Performed By: #### L 500.4050, L100.0100 ####[facility] [address] [place], [address] Eosinophil percentageOrdered By: Deep Dela Cruz on 06-20-2024 Eosinophils/100 WBC (Bld) 3.0 % 0-5 [facility] Erythrocyte distribution wid th (RBC) [Ratio]Ordered By: Deep Dela Cruz on 06-20-2024 Erythrocyte distribution width (RBC) [Entitic vol] 51.5 fL High 35.1-43.9 [facility] Erythrocyte distribution wid th ratioOrdered By: Deep Dela Cruz on 06-20-2024 Erythrocyte distribution width (RBC) [Ratio] 15.1 % High 11.6-14.6 [facility] Erythrocyte distribution wid th standard deviationOrdered By: Deep Dela Cruz on 06-20-2024 Erythrocyte distribution width (RBC) [Ratio] 51.5 fl High 35.1-43.9 [facility] Estimated glomerular filtrat ion rate (GFR) AmericanOrdered By: Deep Dela Cruz on 06-20-2024 Estimated GFR (MDRD) Amer 185 mL/min >60 [facility] Comment on above: GFR Calc Glomerular filtration rate ( GFR) estimationOrdered By: Deep Dela Cruz on 06-20-2024 Estimated GFR (MDRD) Non-Af Amer 153 mL/min >60 [facility] Comment on above: Non- GFR Calc GFR/1.73 sq M.predicted among non-blacks MDRD (S/P/Bld) [Vol rate/Area] 153 mL/min/{1.73_m2} >60 [facility] Comment on above: Non- GFR Calc Glucose measurementOrdered B y: Deep Dela Cruz on 06-20-2024 Glucose [Mass/Vol] 104 mg/dL 74-106 [facility] Comment on above: Fasting Glucose resu lt from 100 to 125 mg/dL suggests IMPAIRED HOMEOSTASIS per A.D.A. criteria. Hematocrit Auto (Bld) [Volum e fraction]Ordered By: Deep Dela Cruz on 06-20-2024 Hematocrit (Bld) [Volume fraction] 33.9 % Low 37-47 [facility] Hemoglobin measurementOrdere d By: Deep Dela Cruz on 06-20-2024 Hemoglobin (Bld) [Mass/Vol] 10.5 g/dL Low 12.0-15.0 [facility] Immature granulocytes/100 WB C Auto (Bld)Ordered By: Deep Dela Cruz on 06-20-2024 Immature granulocytes/100 WBC (Bld) 0.500 % 0.0-0.9 [facility] Comment on above: IG% - Immature Granu locytes (promyelocytes, myelocytes and metamyelocytes) > 1% indicates that a LEFT SHIFT is Present. Laboratory - Chemistry and C hemistry - challengeOrdered By: Deep Dela Cruz on 06-20-2024 AST [Catalytic activity/Vol] 17 U/L 15-37 [facility] Lymphocytes Auto (Unsp spec) [#/Vol]Ordered By: Deep Dela Cruz on 06-20-2024 Lymphocytes (Bld) [#/Vol] 1.17 10*3/uL 0.83-4.51 [facility] Lymphocytes/100 WBC Auto (Un sp spec)Ordered By: Deep Dela Cruz on 06-20-2024 Lymphocytes/100 WBC (Bld) 14.7 % Low 19-41 [facility] MCV (mean corpuscular volume ) determinationOrdered By: Deep Dela Cruz on 06-20-2024 MCV (RBC) [Entitic vol] 93.1 fL 81-99 [facility] Mean corpuscular hemoglobin (MCH) determinationOrdered By: Deep Dela Cruz on 06-20-2024 MCH (RBC) [Entitic mass] 28.8 pg 27.0-32.0 [facility] Mean corpuscular hemoglobin concentration (MCHC) determinationOrdered By: Deep Dela Cruz on 06-20-2024 MCHC (RBC) [Mass/Vol] 31.0 g/dL Low 32-36 [facility] Mean platelet volume determi nationOrdered By: Deep Dela Cruz on 06-20-2024 Platelet mean volume (Bld) [Entitic vol] 10.3 fL 6.2-12.0 [facility] Monocyte percentageOrdered B y: Deep Dela Cruz on 06-20-2024 Monocytes/100 WBC (Bld) 11.2 % High 0-10 [facility] Neutrophil percentageOrdered By: Deep Dela Cruz on 06-20-2024 Neutrophils/100 WBC (Bld) 69.5 % 47-70 [facility] Nucleated red blood cell per centageOrdered By: Deep Dela Cruz on 06-20-2024 Nucleated RBC/100 WBC (Bld) [Ratio] 0 % 0-5 [facility] Platelet countOrdered By: Fried on 06-20-2024 Platelets (Bld) [#/Vol] 299 10*3/uL 150-450 [facility] Potassium measurementOrdered By: Deep Dela Cruz on 06-20-2024 Potassium [Moles/Vol] 3.8 mmol/L 3.5-5.1 [facility] RBC Auto (Bld) [#/Vol]Ordere d By: Deep Dela Cruz on 06-20-2024 RBC (Bld) [#/Vol] 3.64 10*6/uL Low 4.2-5.4 [facility] Serum anion gap measurementO rdered By: Deep Dela Cruz on 06-20-2024 Anion gap [Moles/Vol] 8 mmol/L 5-15 [facility] Serum globulin measurementOr dered By: Deep Dela Cruz on 06-20-2024 Globulin (S) [Mass/Vol] 4.1 g/dL 2.2-4.2 [facility] Serum or plasma alanine wilson otransferase (ALT) measurementOrdered By: Deep Dela Cruz on 06-20-2024 ALT [Catalytic activity/Vol] 10 U/L Low 13-56 [facility] Serum or plasma albumin jessi urement (mass/volume)Ordered By: Deep Dela Cruz on 06-20-2024 Albumin [Mass/Vol] 1.9 g/dL Low 3.2-5.0 [facility] Serum or plasma alkaline jero sphatase measurementOrdered By: Deep Dela Cruz on 06-20-2024 ALP [Catalytic activity/Vol] 148 U/L High 45-117 [facility] Serum or plasma calcium jessi urement (mass/volume)Ordered By: Deep Dela Cruz on 06-20-2024 Calcium [Mass/Vol] 8.7 mg/dL 8.5-10.1 [facility] Serum or plasma creatinine m easurement (mass/volume)Ordered By: Deep Dela Cruz on 06-20-2024 Creatinine [Mass/Vol] 0.42 mg/dL Low 0.55-1.02 [facility] Comment on above: The validity of the calculated GFR & GFRAA in patients over 70 years has not been determined. Clinical correlation is essential. Serum or plasma urea nitroge n measurement (mass/volume)Ordered By: Deep Dela Cruz on 06-20-2024 Urea nitrogen [Mass/Vol] 13 mg/dL 7-18 [facility] Sodium levelOrdered By: Deep Dela Cruz on 06-20-2024 Sodium [Moles/Vol] 139 mmol/L 136-145 [facility] Total proteinOrdered By: Janet Dela Cruz on 06-20-2024 Protein [Mass/Vol] 6.0 g/dL Low 6.4-8.2 [facility] White blood cell (WBC) count Ordered By: Deep Dela Cruz on 06-20-2024 WBC (Bld) [#/Vol] 8.0 10*3/uL 4.4-11.0 [facility] C. difficile DNA ANKIT+probe Q l (Unsp spec)Ordered By: Deep Dela Cruz on 06-19-2024 Clostridioides difficile (PCR) [facility] Clostridium difficile detect ion by polymerase chain reactionOrdered By: Deep Dela Cruz on 06-19-2024 C. difficile DNA ANKIT+probe Ql (Unsp spec) [facility] Urine Cultureon 06-16-2024 URC Normal [facility] Comment on above: Performed By: #### L 400.0001, M100.2200 ####[facility] [address] [place], [address] Bilirubin Test strip Ql (U)O rdered By: Deep Dela Cruz on 06-09-2024 Bilirubin Ql (U) Negative Negative [facility] Epithelial cells.squamous LM Ql (Urine sed)Ordered By: Deep Dela Cruz on 06-09-2024 Epithelial cells.squamous LM.HPF (Urine sed) [#/Area] 0 /[HPF] 5-10 [facility] Glucose Ql (U)Ordered By: Fried on 06-09-2024 Urine Glucose (UA) Normal mg/dl Normal [facility] Ketones Test strip Ql (U)Ord ered By: Deep Dela Cruz on 06-09-2024 Ketones Ql (U) Negative Negative [facility] Microscopic analysis of urin e for red blood cells (RBC)Ordered By: Deep Dela Cruz on 06-09-2024 Urine RBC 0 SEEN /hpf 0-5 [facility] Mucus LM Ql (Urine sed)Order ed By: Deep Dela Cruz on 06-09-2024 Mucus Ql (Urine sed) 0 SEEN /hpf [facility] Nitrite Test strip Ql (U)Ord ered By: Deep Dela Cruz on 06-09-2024 Nitrite Ql (U) Positive High Negative [facility] Protein Test strip Ql (U)Ord ered By: Deep Dela Cruz on 06-09-2024 Protein Ql (U) 100 mg/dl High Negative [facility] Urinalysis, Completeon 06-09 BACTERIA 2+ /hpf Normal None Seen [facility] Comment on above: Order Comment: VANITA TER SPECIMEN Performed By: #### L 400.0001, ####[facility] [address] [place], [address] WBC 10-25 SEEN Normal 0-5 [facility] Comment on above: Order Comment: VANITA TER SPECIMEN Performed By: #### L 400.0001, ####[facility] [address] [place], [address] EPI,SQUAMOUS 0 SEEN Normal 5-10 [facility] Comment on above: Order Comment: VANITA TER SPECIMEN Performed By: #### L 400.0001, M100.2200 ####[facility] [address] [place], [address] Mucus Ql (Urine sed) 0 SEEN Normal [facility] Comment on above: Order Comment: VANITA TER SPECIMEN Performed By: #### L 400.0001, M100.2200 ####[facility] [address] [place], [address] RBC 0 SEEN Normal 0-5 [facility] Comment on above: Order Comment: VANITA TER SPECIMEN Performed By: #### L 400.0001, M100.2200 ####[facility] [address] [place], [address] Urine blood detectionOrdered By: Deep Dela Cruz on 06-09-2024 Urine Occult Blood 150 /ul High Negative [facility] Urine clarityOrdered By: Janet Dela Cruz on 06-09-2024 Clarity (U) Turbid Clear [facility] Urine color determinationOrd ered By: Deep Dela Cruz on 06-09-2024 Color (U) Yellow Yellow [facility] Urine cultureOrdered By: Janet Dela Cruz on 06-09-2024 Bacteria identified Cx Nom (U) Klebsiella pneumoniae Abnormal [facility] Bacteria identified Cx Nom (U) Proteus mirabilis Abnormal [facility] Urine leukocyte esterase det ection by dipstickOrdered By: Deep Dela Cruz on 06-09-2024 Leukocyte esterase Test strip Ql (U) 500 /ul High Negative [facility] Urine pHOrdered By: Deep hayes on 06-09-2024 pH (U) 8.0 [pH] 5.0 - 8.0 [facility] Urine sediment bacteria coun t by microscopy (number/high power field)Ordered By: Deep Dela Cruz on 06-09-2024 Bacteria LM.HPF (Urine sed) [#/Area] 2 /[HPF] None Seen [facility] Urine specific gravity measu rementOrdered By: Deep Dela Cruz on 06-09-2024 Specific gravity (U) [Rel density] 1.010 1.002-1.030 [facility] Urobilinogen Ql (U)Ordered B y: Deep Dela Cruz on 06-09-2024 Urine Urobilinogen Normal mg/dl Normal [facility] White blood cell countOrdere d By: Deep Dela Cruz on 06-09-2024 Urine WBC 10-25 SEEN /hpf 0-5 [facility] Albumin to globulin ratioOrd ered By: eDep Dela Cruz on 06-05-2024 Albumin/Globulin [Mass ratio] 0.5 {ratio} Low 0.9-2.4 [facility] Bilirubin, totalOrdered By: Deep Dela Cruz on 06-05-2024 Bilirubin [Mass/Vol] 0.60 mg/dL 0.20-1.00 [facility] Comment on above: For patients on eltr ombopag therapy, use of [employer] [place] TBIL is not recommended. Blood urea nitrogen (BUN)/cr eatinine ratioOrdered By: Deep Dela Cruz on 06-05-2024 Urea nitrogen/Creatinine [Mass ratio] 26.1 mg/mg High 10-20 [facility] CBC-Complete Blood Cnt No Di ffon 06-05-2024 Erythrocyte distribution width (RBC) [Ratio] 15.0 % High 11.6-14.6 [facility] Comment on above: Order Comment: 303-2 Performed By: #### L 500.4050, L100.0500 ####[facility] [address] [place], [address] Hematocrit (Bld) [Volume fraction] 38.0 % Normal 37-47 [facility] Comment on above: Order Comment: 303-2 Performed By: #### L 500.4050, L100.0500 ####[facility] [address] [place], [address] Hemoglobin (Bld) [Mass/Vol] 11.3 g/dL Low 12.0-15.0 [facility] Comment on above: Order Comment: 303-2 Performed By: #### L 500.4050, L100.0500 ####[facility] [address] [place], [address] MCH (RBC) [Entitic mass] 29.3 pg Normal 27.0-32.0 [facility] Comment on above: Order Comment: 303-2 Performed By: #### L 500.4050, L100.0500 ####[facility] [address] [place], [address] MCHC (RBC) [Mass/Vol] 29.7 g/dL Low 32-36 [facility] Comment on above: Order Comment: 303-2 Performed By: #### L 500.4050, L100.0500 ####[facility] [address] [place], [address] MCV (RBC) [Entitic vol] 98.4 fL Normal 81-99 [facility] [place] Comment on above: Order Comment: 303-2 Performed By: #### L 500.4050, L100.0500 ####[facility] [address] [place], [address] Platelet mean volume (Bld) [Entitic vol] 10.7 fL Normal 6.2-12.0 [facility] Comment on above: Order Comment: 303-2 Performed By: #### L 500.4050, L100.0500 ####[facility] [address] [place], [address] Platelets (Bld) [#/Vol] 401 10*3/uL Normal 150-450 [facility] Comment on above: Order Comment: 303-2 Performed By: #### L 500.4050, L100.0500 ####[facility] [address] [place], [address] RBC (Bld) [#/Vol] 3.86 10*6/uL Low 4.2-5.4 [facility] Comment on above: Order Comment: 303-2 Performed By: #### L 500.4050, L100.0500 ####[facility] [address] [place], [address] RDW SD 54.3 fl High 35.1-43.9 [facility] Comment on above: Order Comment: 303-2 Performed By: #### L 500.4050, L100.0500 ####[facility] [address] [place], [address] WBC (Bld) [#/Vol] 4.8 10*3/uL Normal 4.4-11.0 [facility] Comment on above: Order Comment: 303-2 Performed By: #### L 500.4050, L100.0500 ####[facility] [address] [place], [address] Carbon dioxide measurementOr dered By: Deep Dela Cruz on 06-05-2024 CO2 [Moles/Vol] 25.0 mmol/L 21.0-32.0 [facility] Chloride measurementOrdered By: Deep Dela Cruz on 06-05-2024 Chloride [Moles/Vol] 105 mmol/L 98-107 [facility] Comprehensive Metabolic Prof ilon 06-05-2024 Albumin [Mass/Vol] 2.1 g/dL Low 3.2-5.0 [facility] Comment on above: Order Comment: 303-2 Performed By: #### L 500.4050, L100.0500 ####[facility] [address] [place], [address] Albumin/Globulin [Mass ratio] 0.5 {ratio} Low 0.9-2.4 [facility] Comment on above: Order Comment: 303-2 Performed By: #### L 500.4050, L100.0500 ####[facility] [address] [place], [address] ALK P 155 U/L High 45-117 [facility] Comment on above: Order Comment: 303-2 Performed By: #### L 500.4050, L100.0500 ####[facility] [address] [place], [address] ALT [Catalytic activity/Vol] 7 U/L Low 13-56 [facility] Comment on above: Order Comment: 303-2 Performed By: #### L 500.4050, L100.0500 ####[facility] [address] [place], [address] AST [Catalytic activity/Vol] 13 U/L Low 15-37 [facility] Comment on above: Order Comment: 303-2 Performed By: #### L 500.4050, L100.0500 ####[facility] [address] [place], [address] Bilirubin [Mass/Vol] 0.60 mg/dL Normal 0.20-1.00 [facility] Comment on above: Order Comment: 303-2 Result Comment: For patients on eltrombopag therapy, use of Dimension [place] TBIL is not recommended. Performed By: #### L 500.4050, L100.0500 ####[facility] [address] [place], [address] BUN/CRE 26.1 RATIO High 10-20 [facility] Comment on above: Order Comment: 303-2 Performed By: #### L 500.4050, L100.0500 ####[facility] [address] [place], [address] CA,Total 8.9 mg/dL Normal 8.5-10.1 [facility] Comment on above: Order Comment: 303-2 Performed By: #### L 500.4050, L100.0500 ####[facility] [address] [place], [address] Chloride [Moles/Vol] 105 mmol/L Normal 98-107 [facility] Comment on above: Order Comment: 303-2 Performed By: #### L 500.4050, L100.0500 ####[facility] [address] [place], [address] CO2 [Moles/Vol] 25.0 mmol/L Normal 21.0-32.0 [facility] Comment on above: Order Comment: 303-2 Performed By: #### L 500.4050, L100.0500 ####[facility] [address] [place], [address] Creatinine [Mass/Vol] 0.54 mg/dL Low 0.55-1.02 [facility] Comment on above: Order Comment: 303-2 Result Comment: The validity of the calculated GFR GFRAA in patients over70 years has not been determined. Clinical correlation isessential. Performed By: #### L 500.4050, L100.0500 ####[facility] [address] [place], [address] EST GFR - AA 140 mL/min Normal >60 [facility] Comment on above: Order Comment: 303-2 Result Comment: Afri can Irish GFR Calc Performed By: #### L 500.4050, L100.0500 ####[facility] [address] [place], [address] GAP 7 Normal 5-15 [facility] Comment on above: Order Comment: 303-2 Performed By: #### L 500.4050, L100.0500 ####[facility] [address] [place], [address] GFR/1.73 sq M.predicted among non-blacks MDRD (S/P/Bld) [Vol rate/Area] 116 mL/min/{1.73_m2} Normal >60 [facility] Comment on above: Order Comment: 303-2 Result Comment: Non- GFR Calc Performed By: #### L 500.4050, L100.0500 ####[facility] [address] [place], [address] Globulin (S) [Mass/Vol] 4.4 g/dL High 2.2-4.2 [facility] [place] Comment on above: Order Comment: 303-2 Performed By: #### L 500.4050, L100.0500 ####[facility] [address] [place], [address] Glucose [Mass/Vol] 98 mg/dL Normal 74-106 [facility] Comment on above: Order Comment: 303-2 Performed By: #### L 500.4050, L100.0500 ####[facility] [address] [place], [address] Potassium [Moles/Vol] 3.8 mmol/L Normal 3.5-5.1 [facility] Comment on above: Order Comment: 303-2 Performed By: #### L 500.4050, L100.0500 ####[facility] [address] [place], [address] Sodium [Moles/Vol] 137 mmol/L Normal 136-145 [facility] Comment on above: Order Comment: 303-2 Performed By: #### L 500.4050, L100.0500 ####[facility] [address] [place], [address] T PROT 6.5 g/dL Normal 6.4-8.2 [facility] Comment on above: Order Comment: 303-2 Performed By: #### L 500.4050, L100.0500 ####[facility] [address] [place], [address] Urea nitrogen [Mass/Vol] 14 mg/dL Normal 7-18 [facility] Comment on above: Order Comment: 303-2 Performed By: #### L 500.4050, L100.0500 ####[facility] [address] [place], [address] Erythrocyte distribution wid th (RBC) [Ratio]Ordered By: Deep Dela Cruz on 06-05-2024 Erythrocyte distribution width (RBC) [Entitic vol] 54.3 fL High 35.1-43.9 [facility] Erythrocyte distribution wid th ratioOrdered By: Deep Dela Cruz on 06-05-2024 Erythrocyte distribution width (RBC) [Ratio] 15.0 % High 11.6-14.6 [facility] Estimated glomerular filtrat ion rate (GFR) AmericanOrdered By: Deep Dela Cruz on 06-05-2024 Estimated GFR (MDRD) Amer 140 mL/min >60 [facility] Comment on above: GFR Calc Glomerular filtration rate ( GFR) estimationOrdered By: Deep Dela Cruz on 06-05-2024 Estimated GFR (MDRD) Non-Af Amer 116 mL/min >60 [facility] Comment on above: Non- GFR Calc Glucose measurementOrdered B y: Deep Dela Cruz on 06-05-2024 Glucose [Mass/Vol] 98 mg/dL 74-106 [facility] Hematocrit Auto (Bld) [Volum e fraction]Ordered By: Deep Dela Cruz on 06-05-2024 Hematocrit (Bld) [Volume fraction] 38.0 % 37-47 [facility] Hemoglobin measurementOrdere d By: Deep Dela Cruz on 06-05-2024 Hemoglobin (Bld) [Mass/Vol] 11.3 g/dL Low 12.0-15.0 [facility] Laboratory - Chemistry and C hemistry - challengeOrdered By: Deep Dela Cruz on 06-05-2024 AST [Catalytic activity/Vol] 13 U/L Low 15-37 [facility] MCV (mean corpuscular volume ) determinationOrdered By: Deep Dela Cruz on 06-05-2024 MCV (RBC) [Entitic vol] 98.4 fL 81-99 [facility] Mean corpuscular hemoglobin (MCH) determinationOrdered By: Deep Dela Cruz on 06-05-2024 MCH (RBC) [Entitic mass] 29.3 pg 27.0-32.0 [facility] Mean corpuscular hemoglobin concentration (MCHC) determinationOrdered By: Deep Dela Cruz on 06-05-2024 MCHC (RBC) [Mass/Vol] 29.7 g/dL Low 32-36 [facility] Mean platelet volume determi nationOrdered By: Deep Dela Cruz on 06-05-2024 Platelet mean volume (Bld) [Entitic vol] 10.7 fL 6.2-12.0 [facility] Platelet countOrdered By: Fried on 06-05-2024 Platelets (Bld) [#/Vol] 401 10*3/uL 150-450 [facility] Potassium measurementOrdered By: Deep Dela Cruz on 06-05-2024 Potassium [Moles/Vol] 3.8 mmol/L 3.5-5.1 [facility] RBC Auto (Bld) [#/Vol]Ordere d By: Deep Dela Cruz on 06-05-2024 RBC (Bld) [#/Vol] 3.86 10*6/uL Low 4.2-5.4 [facility] Serum anion gap measurementO rdered By: Deep Dela Cruz on 06-05-2024 Anion gap [Moles/Vol] 7 mmol/L 5-15 [facility] Serum globulin measurementOr dered By: Deep Dela Cruz on 06-05-2024 Globulin (S) [Mass/Vol] 4.4 g/dL High 2.2-4.2 [facility] Serum or plasma alanine wilson otransferase (ALT) measurementOrdered By: Deep Dela Cruz on 06-05-2024 ALT [Catalytic activity/Vol] 7 U/L Low 13-56 [facility] Serum or plasma albumin jessi urement (mass/volume)Ordered By: Deep Dela Cruz on 06-05-2024 Albumin [Mass/Vol] 2.1 g/dL Low 3.2-5.0 [facility] Serum or plasma alkaline jero sphatase measurementOrdered By: Deep Dela Cruz on 06-05-2024 ALP [Catalytic activity/Vol] 155 U/L High 45-117 [facility] Serum or plasma calcium jessi urement (mass/volume)Ordered By: Deep Dela Cruz on 06-05-2024 Calcium [Mass/Vol] 8.9 mg/dL 8.5-10.1 [facility] Serum or plasma creatinine m easurement (mass/volume)Ordered By: Deep Dela Cruz on 06-05-2024 Creatinine [Mass/Vol] 0.54 mg/dL Low 0.55-1.02 [facility] Comment on above: The validity of the calculated GFR & GFRAA in patients over 70 years has not been determined. Clinical correlation is essential. Serum or plasma urea nitroge n measurement (mass/volume)Ordered By: Deep Dela Cruz on 06-05-2024 Urea nitrogen [Mass/Vol] 14 mg/dL 7-18 [facility] Sodium levelOrdered By: [facility]-2024 Sodium [Moles/Vol] 137 mmol/L 136-145 [facility] Total proteinOrdered By: Janet Dela Cruz on 06-05-2024 Protein [Mass/Vol] 6.5 g/dL 6.4-8.2 [facility] White blood cell (WBC) count Ordered By: Deep Dela Cruz on 06-05-2024 WBC (Bld) [#/Vol] 4.8 10*3/uL 4.4-11.0 [facility] Basic Metabolic Profile (BMP )on 05-29-2024 BUN/CRE 30.3 RATIO High 10-20 [facility] Comment on above: Order Comment: 303.2 Performed By: #### L 100.0500, L500.2500 ####[facility] [address] [place], [address] CA,Total 8.6 mg/dL Normal 8.5-10.1 [facility] Comment on above: Order Comment: 303.2 Performed By: #### L 100.0500, L500.2500 ####[facility] [address] [place], [address] Chloride [Moles/Vol] 104 mmol/L Normal 98-107 [facility] Comment on above: Order Comment: 303.2 Performed By: #### L 100.0500, L500.2500 ####[facility] [address] [place], [address] CO2 [Moles/Vol] 26.0 mmol/L Normal 21.0-32.0 [facility] Comment on above: Order Comment: 303.2 Performed By: #### L 100.0500, L500.2500 ####[facility] [address] [place], [address] Creatinine [Mass/Vol] 0.46 mg/dL Low 0.55-1.02 [facility] Comment on above: Order Comment: 303.2 Result Comment: The validity of the calculated GFR GFRAA in patients over70 years has not been determined. Clinical correlation isessential. Performed By: #### L 100.0500, L500.2500 ####[facility] [address] [place], [address] EST GFR - AA 166 mL/min Normal >60 [facility] Comment on above: Order Comment: 303.2 Result Comment: Afri can Irish GFR Calc Performed By: #### L 100.0500, L500.2500 ####[facility] [address] [place], [address] GAP 7 Normal 5-15 [facility] Comment on above: Order Comment: 303.2 Performed By: #### L 100.0500, L500.2500 ####[facility] [address] [place], [address] GFR/1.73 sq M.predicted among non-blacks MDRD (S/P/Bld) [Vol rate/Area] 137 mL/min/{1.73_m2} Normal >60 [facility] Comment on above: Order Comment: 303.2 Result Comment: Non- GFR Calc Performed By: #### L 100.0500, L500.2500 ####[facility] [address] [place], [address] Glucose [Mass/Vol] 99 mg/dL Normal 74-106 [facility] Comment on above: Order Comment: 303.2 Performed By: #### L 100.0500, L500.2500 ####[facility] [address] [place], [address] Potassium [Moles/Vol] 4.0 mmol/L Normal 3.5-5.1 [facility] Comment on above: Order Comment: 303.2 Performed By: #### L 100.0500, L500.2500 ####[facility] [address] [place], [address] Sodium [Moles/Vol] 137 mmol/L Normal 136-145 [facility] Comment on above: Order Comment: 303.2 Performed By: #### L 100.0500, L500.2500 ####[facility] [address] [place], [address] Urea nitrogen [Mass/Vol] 14 mg/dL Normal 7-18 [facility] Comment on above: Order Comment: 303.2 Performed By: #### L 100.0500, L500.2500 ####[facility] [address] [place], [address] Blood urea nitrogen (BUN)/cr eatinine ratioOrdered By: Deep Dela Cruz on 05-29-2024 Urea nitrogen/Creatinine [Mass ratio] 30.3 mg/mg High 10-20 [facility] CBC-Complete Blood Cnt No Di ffon 05-29-2024 Erythrocyte distribution width (RBC) [Ratio] 15.8 % High 11.6-14.6 [facility] Comment on above: Order Comment: 303.2 Performed By: #### L 100.0500, L500.2500 ####[facility] [address] [place], [address] Hematocrit (Bld) [Volume fraction] 29.1 % Low 37-47 [facility] Comment on above: Order Comment: 303.2 Performed By: #### L 100.0500, L500.2500 ####[facility] [address] [place], [address] Hemoglobin (Bld) [Mass/Vol] 8.8 g/dL Low 12.0-15.0 [facility] Comment on above: Order Comment: 303.2 Performed By: #### L 100.0500, L500.2500 ####[facility] [address] [place], [address] MCH (RBC) [Entitic mass] 28.8 pg Normal 27.0-32.0 [facility] Comment on above: Order Comment: 303.2 Performed By: #### L 100.0500, L500.2500 ####[facility] [address] [place], [address] MCHC (RBC) [Mass/Vol] 30.2 g/dL Low 32-36 [facility] Comment on above: Order Comment: 303.2 Performed By: #### L 100.0500, L500.2500 ####[facility] [address] [place], [address] MCV (RBC) [Entitic vol] 95.1 fL Normal 81-99 [facility] Comment on above: Order Comment: 303.2 Performed By: #### L 100.0500, L500.2500 ####[facility] [address] [place], [address] Platelet mean volume (Bld) [Entitic vol] 10.2 fL Normal 6.2-12.0 [facility] Comment on above: Order Comment: 303.2 Performed By: #### L 100.0500, L500.2500 ####[facility] [address] [place], [address] Platelets (Bld) [#/Vol] 350 10*3/uL Normal 150-450 [facility] Comment on above: Order Comment: 303.2 Performed By: #### L 100.0500, L500.2500 ####[facility] [address] [place], [address] RBC (Bld) [#/Vol] 3.06 10*6/uL Low 4.2-5.4 [facility] Comment on above: Order Comment: 303.2 Performed By: #### L 100.0500, L500.2500 ####[facility] [address] [place], [address] RDW SD 54.8 fl High 35.1-43.9 [facility] Comment on above: Order Comment: 303.2 Performed By: #### L 100.0500, L500.2500 ####[facility] [address] [place], [address] WBC (Bld) [#/Vol] 6.1 10*3/uL Normal 4.4-11.0 [facility] Comment on above: Order Comment: 303.2 Performed By: #### L 100.0500, L500.2500 ####[facility] [address] [place], [address] Carbon dioxide measurementOr dered By: Deep Dela Cruz on 05-29-2024 CO2 [Moles/Vol] 26.0 mmol/L 21.0-32.0 [facility] Chloride measurementOrdered By: Deep Dela Cruz on 05-29-2024 Chloride [Moles/Vol] 104 mmol/L 98-107 [facility] Erythrocyte distribution wid th (RBC) [Ratio]Ordered By: Deep Dela Cruz on 05-29-2024 Erythrocyte distribution width (RBC) [Entitic vol] 54.8 fL High 35.1-43.9 [facility] Erythrocyte distribution wid th ratioOrdered By: Deep Dela Cruz on 05-29-2024 Erythrocyte distribution width (RBC) [Ratio] 15.8 % High 11.6-14.6 [facility] Estimated glomerular filtrat ion rate (GFR) AmericanOrdered By: Deep Dela Cruz on 05-29-2024 Estimated GFR (MDRD) Amer 166 mL/min >60 [facility] Comment on above: GFR Calc Glomerular filtration rate ( GFR) estimationOrdered By: Deep Dela Cruz on 05-29-2024 Estimated GFR (MDRD) Non-Af Amer 137 mL/min >60 [facility] Comment on above: Non- GFR Calc Glucose measurementOrdered B y: Deep Dela Cruz on 05-29-2024 Glucose [Mass/Vol] 99 mg/dL 74-106 [facility] Hematocrit Auto (Bld) [Volum e fraction]Ordered By: Deep Dela Cruz on 05-29-2024 Hematocrit (Bld) [Volume fraction] 29.1 % Low 37-47 [facility] Hemoglobin measurementOrdere d By: Deep Dela Cruz on 05-29-2024 Hemoglobin (Bld) [Mass/Vol] 8.8 g/dL Low 12.0-15.0 [facility] MCV (mean corpuscular volume ) determinationOrdered By: Deep Dela Cruz on 05-29-2024 MCV (RBC) [Entitic vol] 95.1 fL 81-99 [facility] [place] Mean corpuscular hemoglobin (MCH) determinationOrdered By: Deep Dela Cruz on 05-29-2024 MCH (RBC) [Entitic mass] 28.8 pg 27.0-32.0 [facility] Mean corpuscular hemoglobin concentration (MCHC) determinationOrdered By: Deep Dela Cruz on 05-29-2024 MCHC (RBC) [Mass/Vol] 30.2 g/dL Low 32-36 [facility] Mean platelet volume determi nationOrdered By: Deep Dela Cruz on 05-29-2024 Platelet mean volume (Bld) [Entitic vol] 10.2 fL 6.2-12.0 [facility] Platelet countOrdered By: Fried on 05-29-2024 Platelets (Bld) [#/Vol] 350 10*3/uL 150-450 [facility] Potassium measurementOrdered By: Depe Dela Cruz on 05-29-2024 Potassium [Moles/Vol] 4.0 mmol/L 3.5-5.1 [facility] RBC Auto (Bld) [#/Vol]Ordere d By: Deep Dela Cruz on 05-29-2024 RBC (Bld) [#/Vol] 3.06 10*6/uL Low 4.2-5.4 [facility] Serum anion gap measurementO rdered By: Deep Dela Cruz on 05-29-2024 Anion gap [Moles/Vol] 7 mmol/L 5-15 [facility] Serum or plasma calcium jessi urement (mass/volume)Ordered By: Deep Dela Cruz on 05-29-2024 Calcium [Mass/Vol] 8.6 mg/dL 8.5-10.1 [facility] Serum or plasma creatinine m easurement (mass/volume)Ordered By: Deep Dela Cruz on 05-29-2024 Creatinine [Mass/Vol] 0.46 mg/dL Low 0.55-1.02 [facility] Comment on above: The validity of the calculated GFR & GFRAA in patients over 70 years has not been determined. Clinical correlation is essential. Serum or plasma urea nitroge n measurement (mass/volume)Ordered By: Deep Dela Cruz on 05-29-2024 Urea nitrogen [Mass/Vol] 14 mg/dL 7-18 [facility] Sodium levelOrdered By: Deep Dela Cruz on 05-29-2024 Sodium [Moles/Vol] 137 mmol/L 136-145 [facility] White blood cell (WBC) count Ordered By: Deep Dela Cruz on 05-29-2024 WBC (Bld) [#/Vol] 6.1 10*3/uL 4.4-11.0 [facility] Urine Cultureon 05-26-2024 URC Normal [facility] Comment on above: Performed By: #### L 400.0001, M100.2200 ####[facility] [address] [place], [address] Bacteria LM.HPF (Urine sed) [#/Area]Ordered By: Deep Dela Cruz on 05-23-2024 Urine Bacteria RARE /hpf None Seen [facility] Bilirubin Test strip Ql (U)O rdered By: Deep Dela Cruz on 05-23-2024 Bilirubin Ql (U) Negative Negative [facility] Epithelial cells.squamous LM Ql (Urine sed)Ordered By: Deep Dela Cruz on 05-23-2024 Epithelial cells.squamous LM.HPF (Urine sed) [#/Area] 0 /[HPF] 5-10 [facility] Glucose Ql (U)Ordered By: Fried on 05-23-2024 Urine Glucose (UA) Normal mg/dl Normal [facility] Ketones Test strip Ql (U)Ord ered By: Deep Dela Cruz on 05-23-2024 Ketones Ql (U) Negative Negative [facility] Microscopic analysis of urin e for red blood cells (RBC)Ordered By: Deep Dela Cruz on 05-23-2024 Urine RBC 0 SEEN /hpf 0-5 [facility] Mucus LM Ql (Urine sed)Order ed By: Deep Dela Cruz on 05-23-2024 Mucus Ql (Urine sed) 0 SEEN /hpf [facility] Nitrite Test strip Ql (U)Ord ered By: Deep Dela Cruz on 05-23-2024 Nitrite Ql (U) Negative Negative [facility] Protein Test strip Ql (U)Ord ered By: Deep Dela Cruz on 05-23-2024 Protein Ql (U) 15 mg/dl High Negative [facility] Urinalysis, Completeon 05-23 BACTERIA RARE Normal None Seen [facility] Comment on above: Order Comment: SCCAT HETER SPECIMEN Performed By: #### L 400.0001, ####[facility] [address] [place], [address] EPI,SQUAMOUS 0-5 SEEN Normal 5-10 [facility] Comment on above: Order Comment: SCCAT HETER SPECIMEN Performed By: #### L 400.0001, ####[facility] [address] [place], [address] WBC 10-25 SEEN Normal 0-5 [facility] Comment on above: Order Comment: SCCAT HETER SPECIMEN Performed By: #### L 400.0001, ####[facility] [address] [place], [address] Mucus Ql (Urine sed) 0 SEEN Normal [facility] Comment on above: Order Comment: SCCAT HETER SPECIMEN Performed By: #### L 400.0001, M1.0 ####[facility] [address] [place] [place], [address] RBC 0 SEEN Normal 0-5 [facility] Comment on above: Order Comment: SCCAT HETER SPECIMEN Performed By: #### L 400.0001, M100.2199 ####[facility] [address] [place] [place], [address] Urine blood detectionOrdered By: Deep Dela Cruz on 05-23-2024 Urine Occult Blood Negative Negative [facility] Urine clarityOrdered By: Janet Dela Cruz on 05-23-2024 Clarity (U) Sl. Cloudy Clear [facility] Urine color determinationOrd ered By: Deep Dela Cruz on 05-23-2024 Color (U) Yellow Yellow [facility] Urine leukocyte esterase det ection by dipstickOrdered By: Deep Dela Cruz on 05-23-2024 Leukocyte esterase Test strip Ql (U) 500 /ul High Negative [facility] Urine pHOrdered By: Deep hayes on 05-23-2024 pH (U) 7.0 [pH] 5.0 - 8.0 [facility] Urine specific gravity measu rementOrdered By: Deep Dela Cruz on 05-23-2024 Specific gravity (U) [Rel density] 1.010 1.002-1.030 [facility] Urobilinogen Ql (U)Ordered B y: Deep Dela Cruz on 05-23-2024 Urine Urobilinogen Normal mg/dl Normal [facility] White blood cell countOrdere d By: Deep Dela Cruz on 05-23-2024 Urine WBC 10-25 SEEN /hpf 0-5 [facility] Albumin to globulin ratioOrd ered By: Deep Dela Cruz on 05-22-2024 Albumin/Globulin [Mass ratio] 0.5 {ratio} Low 0.9-2.4 [facility] Bilirubin, totalOrdered By: Deep Dela Cruz on 05-22-2024 Bilirubin [Mass/Vol] 0.40 mg/dL 0.20-1.00 [facility] Comment on above: For patients on eltr ombopag therapy, use of Dimension [place] TBIL is not recommended. Blood urea nitrogen (BUN)/cr eatinine ratioOrdered By: Deep Dela Cruz on 05-22-2024 Urea nitrogen/Creatinine [Mass ratio] 21.7 mg/mg High 10-20 [facility] CBC-Complete Blood Cnt No Di ffon 05-22-2024 Erythrocyte distribution width (RBC) [Ratio] 15.4 % High 11.6-14.6 [facility] Comment on above: Order Comment: 303.2 Performed By: #### L 500.4050, L100.0500 ####[facility] [address] [place], [address] Hematocrit (Bld) [Volume fraction] 26.4 % Low 37-47 [facility] Comment on above: Order Comment: 303.2 Performed By: #### L 500.4050, L100.0500 ####[facility] [address] [place], [address] Hemoglobin (Bld) [Mass/Vol] 8.0 g/dL Low 12.0-15.0 [facility] Comment on above: Order Comment: 303.2 Performed By: #### L 500.4050, L100.0500 ####[facility] [address] [place], [address] MCH (RBC) [Entitic mass] 28.9 pg Normal 27.0-32.0 [facility] Comment on above: Order Comment: 303.2 Performed By: #### L 500.4050, L100.0500 ####[facility] [address] [place] [place], [address] MCHC (RBC) [Mass/Vol] 30.3 g/dL Low 32-36 [facility] Comment on above: Order Comment: 303.2 Performed By: #### L 500.4050, L100.0500 ####[facility] [address] [place], [address] MCV (RBC) [Entitic vol] 95.3 fL Normal 81-99 [facility] Comment on above: Order Comment: 303.2 Performed By: #### L 500.4050, L100.0500 ####[facility] [address] [place], [address] Platelet mean volume (Bld) [Entitic vol] 10.0 fL Normal 6.2-12.0 [facility] Comment on above: Order Comment: 303.2 Performed By: #### L 500.4050, L100.0500 ####[facility] [address] [place], [address] Platelets (Bld) [#/Vol] 484 10*3/uL High 150-450 [facility] Comment on above: Order Comment: 303.2 Performed By: #### L 500.4050, L100.0500 ####[facility] [address] [place], [address] RBC (Bld) [#/Vol] 2.77 10*6/uL Low 4.2-5.4 [facility] Comment on above: Order Comment: 303.2 Performed By: #### L 500.4050, L100.0500 ####[facility] [address] [place], [address] RDW SD 53.6 fl High 35.1-43.9 [facility] Comment on above: Order Comment: 303.2 Performed By: #### L 500.4050, L100.0500 ####[facility] [address] [place], [address] WBC (Bld) [#/Vol] 8.0 10*3/uL Normal 4.4-11.0 [facility] Comment on above: Order Comment: 303.2 Performed By: #### L 500.4050, L100.0500 ####[facility] [address] [place], [address] CNPNon 05-22-2024 CNPN Normal [facility] Carbon dioxide measurementOr dered By: Deep Dela Cruz on 05-22-2024 CO2 [Moles/Vol] 29.0 mmol/L 21.0-32.0 [facility] Chloride measurementOrdered By: Deep Dela Cruz on 05-22-2024 Chloride [Moles/Vol] 103 mmol/L 98-107 [facility] Comprehensive Metabolic Prof ilon 05-22-2024 Albumin [Mass/Vol] 1.8 g/dL Low 3.2-5.0 [facility] Comment on above: Order Comment: 303.2 Performed By: #### L 500.4050, L100.0500 ####[facility] [address] [place], [address] Albumin/Globulin [Mass ratio] 0.5 {ratio} Low 0.9-2.4 [facility] Comment on above: Order Comment: 303.2 Performed By: #### L 500.4050, L100.0500 ####[facility] [address] [place], [address] ALK P 141 U/L High 45-117 [facility] Comment on above: Order Comment: 303.2 Performed By: #### L 500.4050, L100.0500 ####[facility] [address] [place], [address] ALT [Catalytic activity/Vol] 10 U/L Low 13-56 [facility] Comment on above: Order Comment: 303.2 Performed By: #### L 500.4050, L100.0500 ####[facility] [address] [place], [address] AST [Catalytic activity/Vol] 19 U/L Normal 15-37 [facility] Comment on above: Order Comment: 303.2 Result Comment: Slig ht Hemolysis, Result may be falsely increased. Performed By: #### L 500.4050, L100.0500 ####[facility] [address] [place], [address] Bilirubin [Mass/Vol] 0.40 mg/dL Normal 0.20-1.00 [facility] Comment on above: Order Comment: 303.2 Result Comment: For patients on eltrombopag therapy, use of Dimension [place] TBIL is not recommended. Performed By: #### L 500.4050, L100.0500 ####[facility] [address] [place], [address] BUN/CRE 21.7 RATIO High 10-20 [facility] Comment on above: Order Comment: 303.2 Performed By: #### L 500.4050, L100.0500 ####[facility] [address] [place], [address] CA,Total 8.2 mg/dL Low 8.5-10.1 [facility] Comment on above: Order Comment: 303.2 Performed By: #### L 500.4050, L100.0500 ####[facility] [address] [place], [address] Chloride [Moles/Vol] 103 mmol/L Normal 98-107 [facility] Comment on above: Order Comment: 303.2 Performed By: #### L 500.4050, L100.0500 ####[facility] [address] [place], [address] CO2 [Moles/Vol] 29.0 mmol/L Normal 21.0-32.0 [facility] Comment on above: Order Comment: 303.2 Performed By: #### L 500.4050, L100.0500 ####[facility] [address] [place], [address] Creatinine [Mass/Vol] 0.51 mg/dL Low 0.55-1.02 [facility] Comment on above: Order Comment: 303.2 Result Comment: The validity of the calculated GFR GFRAA in patients over70 years has not been determined. Clinical correlation isessential. Performed By: #### L 500.4050, L100.0500 ####[facility] [address] [place], [address] EST GFR - AA 149 mL/min Normal >60 [facility] Comment on above: Order Comment: 303.2 Result Comment: Afri can Irish GFR Calc Performed By: #### L 500.4050, L100.0500 ####[facility] [address] [place], [address] GAP 5 Normal 5-15 [facility] Comment on above: Order Comment: 303.2 Performed By: #### L 500.4050, L100.0500 ####[facility] [address] [place], [address] GFR/1.73 sq M.predicted among non-blacks MDRD (S/P/Bld) [Vol rate/Area] 124 mL/min/{1.73_m2} Normal >60 [facility] Comment on above: Order Comment: 303.2 Result Comment: Non- GFR Calc Performed By: #### L 500.4050, L100.0500 ####[facility] [address] [place], [address] Globulin (S) [Mass/Vol] 3.8 g/dL Normal 2.2-4.2 [facility] Comment on above: Order Comment: 303.2 Performed By: #### L 500.4050, L100.0500 ####[facility] [address] [place], [address] Glucose [Mass/Vol] 102 mg/dL Normal 74-106 [facility] Comment on above: Order Comment: 303.2 Result Comment: Fast ing Glucose result from 100 to 125 mg/dLsuggests IMPAIRED HOMEOSTASIS per A.D.A. criteria. Performed By: #### L 500.4050, L100.0500 ####[facility] [address] [place], [address] Potassium [Moles/Vol] 4.0 mmol/L Normal 3.5-5.1 [facility] Comment on above: Order Comment: 303.2 Result Comment: Slig ht Hemolysis, Result may be falsely increased. Performed By: #### L 500.4050, L100.0500 ####[facility] [address] [place], [address] Sodium [Moles/Vol] 137 mmol/L Normal 136-145 [facility] Comment on above: Order Comment: 303.2 Performed By: #### L 500.4050, L100.0500 ####[facility] [address] [place], [address] T PROT 5.6 g/dL Low 6.4-8.2 [facility] Comment on above: Order Comment: 303.2 Performed By: #### L 500.4050, L100.0500 ####[facility] [address] [place], [address] Urea nitrogen [Mass/Vol] 11 mg/dL Normal 7-18 [facility] Comment on above: Order Comment: 303.2 Performed By: #### L 500.4050, L100.0500 ####[facility] [address] [place], [address] Erythrocyte distribution wid th (RBC) [Ratio]Ordered By: Deep Dela Cruz on 05-22-2024 Erythrocyte distribution width (RBC) [Entitic vol] 53.6 fL High 35.1-43.9 [facility] Erythrocyte distribution wid th ratioOrdered By: Deep Dela Cruz on 05-22-2024 Erythrocyte distribution width (RBC) [Ratio] 15.4 % High 11.6-14.6 [facility] Estimated glomerular filtrat ion rate (GFR) AmericanOrdered By: Deep Dela Cruz on 05-22-2024 Estimated GFR (MDRD) Amer 149 mL/min >60 [facility] Comment on above: GFR Calc Glomerular filtration rate ( GFR) estimationOrdered By: Deep Dela Cruz on 05-22-2024 Estimated GFR (MDRD) Non-Af Amer 124 mL/min >60 [facility] Comment on above: Non- GFR Calc Glucose measurementOrdered B y: Deep Dela Cruz on 05-22-2024 Glucose [Mass/Vol] 102 mg/dL 74-106 [facility] Comment on above: Fasting Glucose resu lt from 100 to 125 mg/dL suggests IMPAIRED HOMEOSTASIS per A.D.A. criteria. Hematocrit Auto (Bld) [Volum e fraction]Ordered By: Deep Dela Cruz on 05-22-2024 Hematocrit (Bld) [Volume fraction] 26.4 % Low 37-47 [facility] Hemoglobin measurementOrdere d By: Deep Deal Cruz on 05-22-2024 Hemoglobin (Bld) [Mass/Vol] 8.0 g/dL Low 12.0-15.0 [facility] - Chemistry and C hemistry - challengeOrdered By: Deep Dela Cruz on 05-22-2024 AST [Catalytic activity/Vol] 19 U/L 15-37 [facility] Comment on above: Slight Hemolysis, Re sult may be falsely increased. MCV (mean corpuscular volume ) determinationOrdered By: Deep Dela Cruz on 05-22-2024 MCV (RBC) [Entitic vol] 95.3 fL 81-99 [facility] Mean corpuscular hemoglobin (MCH) determinationOrdered By: Deep Dela Cruz on 05-22-2024 MCH (RBC) [Entitic mass] 28.9 pg 27.0-32.0 [facility] Mean corpuscular hemoglobin concentration (MCHC) determinationOrdered By: Deep Dela Cruz on 05-22-2024 MCHC (RBC) [Mass/Vol] 30.3 g/dL Low 32-36 [facility] Mean platelet volume determi nationOrdered By: Deep Dela Cruz on 05-22-2024 Platelet mean volume (Bld) [Entitic vol] 10.0 fL 6.2-12.0 [facility] Platelet countOrdered By: Fried on 05-22-2024 Platelets (Bld) [#/Vol] 484 10*3/uL High 150-450 [facility] Potassium measurementOrdered By: Deep Dela Cruz on 05-22-2024 Potassium [Moles/Vol] 4.0 mmol/L 3.5-5.1 [facility] Comment on above: Slight Hemolysis, Re sult may be falsely increased. RBC Auto (Bld) [#/Vol]Ordere d By: Deep Dela Cruz on 05-22-2024 RBC (Bld) [#/Vol] 2.77 10*6/uL Low 4.2-5.4 [facility] Serum anion gap measurementO rdered By: Deep Dela Cruz on 05-22-2024 Anion gap [Moles/Vol] 5 mmol/L 5-15 [facility] Serum globulin measurementOr dered By: Deep Dela Cruz on 05-22-2024 Globulin (S) [Mass/Vol] 3.8 g/dL 2.2-4.2 [facility] Serum or plasma alanine wilson otransferase (ALT) measurementOrdered By: Deep Dela Cruz on 05-22-2024 ALT [Catalytic activity/Vol] 10 U/L Low 13-56 [facility] Serum or plasma albumin jessi urement (mass/volume)Ordered By: Deep Dela Cruz on 05-22-2024 Albumin [Mass/Vol] 1.8 g/dL Low 3.2-5.0 [facility] Serum or plasma alkaline jero sphatase measurementOrdered By: Deep Dela Cruz on 05-22-2024 ALP [Catalytic activity/Vol] 141 U/L High 45-117 [facility] Serum or plasma calcium jessi urement (mass/volume)Ordered By: Deep Dela Cruz on 05-22-2024 Calcium [Mass/Vol] 8.2 mg/dL Low 8.5-10.1 [facility] Serum or plasma creatinine m easurement (mass/volume)Ordered By: Deep Dela Cruz on 05-22-2024 Creatinine [Mass/Vol] 0.51 mg/dL Low 0.55-1.02 [facility] Comment on above: The validity of the calculated GFR & GFRAA in patients over 70 years has not been determined. Clinical correlation is essential. Serum or plasma urea nitroge n measurement (mass/volume)Ordered By: Deep Dela Cruz on 05-22-2024 Urea nitrogen [Mass/Vol] 11 mg/dL 7-18 [facility] Sodium levelOrdered By: Deep Dela Cruz on 05-22-2024 Sodium [Moles/Vol] 137 mmol/L 136-145 [facility] Total proteinOrdered By: Janet Dela Cruz on 05-22-2024 Protein [Mass/Vol] 5.6 g/dL Low 6.4-8.2 [facility] Urine cultureOrdered By: Janet Dela Cruz on 05-22-2024 Bacteria identified Cx Nom (U) ESBL Escherichia coli Abnormal [facility] Bacteria identified Cx Nom (U) Presumptive Lactobacillus sp. Abnormal [facility] White blood cell (WBC) count Ordered By: Deep Dela Cruz on 05-22-2024 WBC (Bld) [#/Vol] 8.0 10*3/uL 4.4-11.0 [facility] Basic metabolic 2000 panelon 05-19-2024 Anion gap [Moles/Vol] 9 mmol/L Normal 8-15 [facility] Comment on above: Order Comment: Speci men Type: BLOOD SPECIMENOrdering Facility: [facility] Address: [address] [place] [address] Performed By: #### 2 4321-2 ####[facility] LABORATORYCLIA [id number] [place] [address] [place] Calcium [Mass/Vol] 8.1 mg/dL Low 8.5-10.2 [facility] Comment on above: Order Comment: Speci men Type: BLOOD SPECIMENOrdering Facility: [facility] Address: [address] [place] [address] Performed By: #### 2 4321-2 ####[facility] LABORATORYCLIA [id number] [place] [address] [place] Chloride [Moles/Vol] 99 mmol/L Normal 98-107 [facility] Comment on above: Order Comment: Speci men Type: BLOOD SPECIMENOrdering Facility: [facility] Address: [address] [place] [address] Performed By: #### 2 4321-2 ####[facility] LABORATORYCLIA [id number] [address] STATES [facility] CO2 [Moles/Vol] 27 mmol/L Normal 22-30 [facility] Comment on above: Order Comment: Speci men Type: BLOOD SPECIMENOrdering Facility: [facility] Address: [address] [place] [address] Performed By: #### 2 4321-2 ####[facility] LABORATORYCLIA [id number] [address] STATES [facility] Creatinine [Mass/Vol] 0.50 mg/dL Low 0.58-0.96 [facility] Comment on above: Order Comment: Speci men Type: BLOOD SPECIMENOrdering Facility: [facility] Address: [address] [place] [address] Performed By: #### 2 4321-2 ####[facility] LABORATORYCLIA [id number] [address] Creatinine and Glomerular filtration rate.predicted panel (S/P/Bld) 94 mL/min/1.73m??? Normal >=60 [facility] Comment on above: Order Comment: Speci men Type: BLOOD SPECIMENOrdering Facility: [facility] Address: [address] [place] [address] Result Comment: Kaylene mated Glomerular Filtration Rate (eGFR) is calculated using the 2020 CKD-EPI creatinine equation. This equation utilizes serum creatinine, sex, and age as parameters. The creatinine assay has traceable calibration to isotope dilution-mass spectrometry. Refer to KDIGO guidelines for clinical interpretation. In patients with unstable renal function, e.g. those with acute kidney injury, the eGFR may not accurately reflect actual GFR. Performed By: #### 2 4321-2 ####[facility] LABORATORYCLIA [id number] [address] [place] [facility] Glucose [Mass/Vol] 106 mg/dL High 74-99 [facility] Comment on above: Order Comment: Speci men Type: BLOOD SPECIMENOrdering Facility: [facility] Address: [address] [place] [address] Result Comment: The [place] Diabetes Association (ADA) provides guidance for cutoff values for fasting glucose and random glucose. The ADA defines fasting as no caloric intake for at least 8 hours. Fasting plasma glucose results between 100 to 125 mg/dL indicate increased risk for diabetes (prediabetes).Fasting plasma glucose results greater than or equal to 126 mg/dL meet the criteria for diagnosis of diabetes. In the absence of unequivocal hyperglycemia, results should be confirmed by repeat testing. In a patient with classic symptoms of hyperglycemia or hyperglycemic crisis, random plasma glucose results greater than or equal to 200 mg/dL meet the criteria for diagnosis of diabetes.Reference: Standards of Medical Care in Diabetes 2016, [place] Diabetes Association. Diabetes Care. 2016.39(Suppl 1). Performed By: #### 2 4321-2 ####[facility] LABORATORYCLIA [id number] [place] [address] [place] Potassium [Moles/Vol] 3.8 mmol/L Normal 3.7-5.1 [facility] Comment on above: Order Comment: Helen rg Type: BLOOD SPECIMENOrdering Facility: [facility] Address: [address] [place] [address] Performed By: #### 2 4321-2 ####[facility] LABORATORYCLIA [id number] [place] [address] [place] Sodium [Moles/Vol] 135 mmol/L Low 136-144 [facility] Comment on above: Order Comment: Helen rg Type: BLOOD SPECIMENOrdering Facility: [facility] Address: [address] [place] [address] Performed By: #### 2 4321-2 ####[facility] LABORATORYCLIA [id number] [place] [address] [place] Urea nitrogen [Mass/Vol] 13 mg/dL Normal 7-21 [facility] Comment on above: Order Comment: Helen rg Type: BLOOD SPECIMENOrdering Facility: [facility] Address: [address] [place] [address] Performed By: #### 2 4321-2 ####[facility] LABORATORYCLIA [id number] [place] [id number] [place] [facility] CASE MANAGEMon 05-19-2024 CASE MANAGEM Normal [facility] CBC panel Auto (Bld)on 05-19 Erythrocyte distribution width (RBC) [Ratio] 15.6 % High 11.5-15.0 [facility] Comment on above: Order Comment: Speci men Type: BLOOD SPECIMENOrdering Facility: [facility] Address: [address] [place] [address] Performed By: #### 5 8410-2 ####[facility] LABORATORYCLIA [id number] [address] Hematocrit (Bld) [Volume fraction] 25.5 % Low 36.0-46.0 [facility] Comment on above: Order Comment: Speci men Type: BLOOD SPECIMENOrdering Facility: [facility] Address: [address] [place] [address] Performed By: #### 5 8410-2 ####[facility] LABORATORYCLIA [id number] [address] Hemoglobin (Bld) [Mass/Vol] 8.0 g/dL Low 11.5-15.5 [facility] Comment on above: Order Comment: Speci men Type: BLOOD SPECIMENOrdering Facility: [facility] Address: [address] [place] [address] Performed By: #### 5 8410-2 ####[facility] LABORATORYCLIA [id number] [address] STATES [facility] MCH (RBC) [Entitic mass] 30.3 pg Normal 26.0-34.0 [facility] Comment on above: Order Comment: Speci men Type: BLOOD SPECIMENOrdering Facility: [facility] Address: [address] [place] [address] Performed By: #### 5 8410-2 ####[facility] LABORATORYCLIA [id number] [address] [place] MCHC (RBC) [Mass/Vol] 31.4 g/dL Normal 30.5-36.0 [facility] Comment on above: Order Comment: Speci men Type: BLOOD SPECIMENOrdering Facility: [facility] Address: [address] [place] [address] Performed By: #### 5 8410-2 ####[facility] LABORATORYCLIA [id number] [address] [place] MCV (RBC) [Entitic vol] 96.6 fL Normal 80.0-100.0 [facility] Comment on above: Order Comment: Speci men Type: BLOOD SPECIMENOrdering Facility: [facility] Address: [address] [place] [address] Performed By: #### 5 8410-2 ####[facility] LABORATORYCLIA [id number] [address] [place] Nucleated RBC (Bld) [#/Vol] 10*3/uL Normal <0.01 [facility] Comment on above: Order Comment: Speci men Type: BLOOD SPECIMENOrdering Facility: [facility] Address: [address] [place] [address] Performed By: #### 5 8410-2 ####[facility] LABORATORYCLIA [id number] [address] [place] Platelet mean volume (Bld) [Entitic vol] 10.0 fL Normal 9.0-12.7 [facility] Comment on above: Order Comment: Speci men Type: BLOOD SPECIMENOrdering Facility: [facility] Address: [address] [place] [address] Performed By: #### 5 8410-2 ####[facility] LABORATORYCLIA [id number] [place] [address] [place] Platelets (Bld) [#/Vol] 525 10*3/uL High 150-400 [facility] Comment on above: Order Comment: Speci men Type: BLOOD SPECIMENOrdering Facility: [facility] Address: [address] [place] [address] Performed By: #### 5 8410-2 ####[facility] LABORATORYCLIA [id number] [place] [address] [place] RBC (Bld) [#/Vol] 2.64 10*6/uL Low 3.90-5.20 [facility] Comment on above: Order Comment: Speci men Type: BLOOD SPECIMENOrdering Facility: [facility] Address: [address] [place] [address] Performed By: #### 5 8410-2 ####[facility] LABORATORYCLIA [id number] [place] [address] [place] WBC (Bld) [#/Vol] 9.85 10*3/uL Normal 3.70-11.00 [facility] Comment on above: Order Comment: Speci men Type: BLOOD SPECIMENOrdering Facility: [facility] Address: [address] [place] [address] Performed By: #### 5 8410-2 ####[facility] LABORATORYCLIA [id number] [address] [place] CNDSon 05-19-2024 CNDS Normal [facility] THERAPY NTon 05-19-2024 THERAPY NT Normal [facility] THERAPY NT Normal [facility] Basic metabolic 2000 panelon 05-18-2024 Anion gap [Moles/Vol] 11 mmol/L Normal 8-15 [facility] Comment on above: Order Comment: Speci men Type: BLOOD SPECIMENOrdering Facility: [facility] Address: [address] [place] [address] Performed By: #### 2 4321-2 ####[facility] LABORATORYCLIA [id number] [place] [address] [place] Calcium [Mass/Vol] 8.0 mg/dL Low 8.5-10.2 [facility] Comment on above: Order Comment: Speci men Type: BLOOD SPECIMENOrdering Facility: [facility] Address: [address] [place] [address] Performed By: #### 2 4321-2 ####[facility] LABORATORYCLIA [id number] [address] OF [place] Chloride [Moles/Vol] 98 mmol/L Normal 98-107 [facility] Comment on above: Order Comment: Speci men Type: BLOOD SPECIMENOrdering Facility: [facility] Address: [address] [place] [address] Performed By: #### 2 4321-2 ####[facility] LABORATORYCLIA [id number] [address] OF [place] CO2 [Moles/Vol] 25 mmol/L Normal 22-30 [facility] Comment on above: Order Comment: Speci men Type: BLOOD SPECIMENOrdering Facility: [facility] Address: [address] [place] [address] Performed By: #### 2 4321-2 ####[facility]ITALIA [id number] [address] OF [facility] Creatinine [Mass/Vol] 0.52 mg/dL Low 0.58-0.96 [facility] Comment on above: Order Comment: Speci men Type: BLOOD SPECIMENOrdering Facility: [facility] Address: [address] [place] [address] Performed By: #### 2 4321-2 ####[facility] LABORATORYCLIA [id number] [address] Creatinine and Glomerular filtration rate.predicted panel (S/P/Bld) 93 mL/min/1.73m??? Normal >=60 [facility] Comment on above: Order Comment: Speci men Type: BLOOD SPECIMENOrdering Facility: [facility] Address: [address] [place] [address] Result Comment: Kaylene mated Glomerular Filtration Rate (eGFR) is calculated using the 2020 CKD-EPI creatinine equation. This equation utilizes serum creatinine, sex, and age as parameters. The creatinine assay has traceable calibration to isotope dilution-mass spectrometry. Refer to KDIGO guidelines for clinical interpretation. In patients with unstable renal function, e.g. those with acute kidney injury, the eGFR may not accurately reflect actual GFR. Performed By: #### 2 4321-2 ####[facility] LABORATORYCLIA [id number] [place] [address] [place] Glucose [Mass/Vol] 116 mg/dL High 74-99 [facility] Comment on above: Order Comment: Helen rg Type: BLOOD SPECIMENOrdering Facility: [facility] Address: [address] [place] [address] Result Comment: The [place] Diabetes Association (ADA) provides guidance for cutoff values for fasting glucose and random glucose. The ADA defines fasting as no caloric intake for at least 8 hours. Fasting plasma glucose results between 100 to 125 mg/dL indicate increased risk for diabetes (prediabetes).Fasting plasma glucose results greater than or equal to 126 mg/dL meet the criteria for diagnosis of diabetes. In the absence of unequivocal hyperglycemia, results should be confirmed by repeat testing. In a patient with classic symptoms of hyperglycemia or hyperglycemic crisis, random plasma glucose results greater than or equal to 200 mg/dL meet the criteria for diagnosis of diabetes.Reference: Standards of Medical Care in Diabetes 2016, [place] [employer]. Diabetes Care. 2016.39(Suppl 1). Performed By: #### 2 4321-2 ####[facility] LABORATORYCLIA [id number] [place] [address] [place] Potassium [Moles/Vol] 3.8 mmol/L Normal 3.7-5.1 [facility] Comment on above: Order Comment: Helen rg Type: BLOOD SPECIMENOrdering Facility: [facility] Address: [address] [place] [address] Performed By: #### 2 4321-2 ####[facility] LABORATORYCLIA [id number] [place] [address] [place] Sodium [Moles/Vol] 134 mmol/L Low 136-144 [facility] Comment on above: Order Comment: Helen rg Type: BLOOD SPECIMENOrdering Facility: [facility] Address: [address] [place] [address] Performed By: #### 2 4321-2 ####[facility] LABORATORYCLIA [id number] [place] [address] [place] Urea nitrogen [Mass/Vol] 13 mg/dL Normal 7-21 [facility] Comment on above: Order Comment: Speci men Type: BLOOD SPECIMENOrdering Facility: [facility] Address: [address] [place] [address] Performed By: #### 2 4321-2 ####[facility] LABORATORYCLIA [id number] [address] [place] CASE MANAGEMon 05-18-2024 CASE MANAGEM Normal [facility] CASE MANAGEM Normal [facility] CBC panel Auto (Bld)on 05-18 Erythrocyte distribution width (RBC) [Ratio] 15.0 % Normal 11.5-15.0 [facility] Comment on above: Order Comment: Speci men Type: BLOOD SPECIMENOrdering Facility: [facility] Address: [address] [place] [address] Performed By: #### 5 8410-2 ####[facility] LABORATORYCLIA [id number] [address] [place] Hematocrit (Bld) [Volume fraction] 27.1 % Low 36.0-46.0 [facility] Comment on above: Order Comment: Speci men Type: BLOOD SPECIMENOrdering Facility: [facility] Address: [address] [place] [address] Performed By: #### 5 8410-2 ####[facility] LABORATORYCLIA [id number] [address] [place] Hemoglobin (Bld) [Mass/Vol] 8.3 g/dL Low 11.5-15.5 [facility] Comment on above: Order Comment: Speci men Type: BLOOD SPECIMENOrdering Facility: [facility] Address: [address] [place] [address] Performed By: #### 5 8410-2 ####[facility] LABORATORYCLIA [id number] [address] [place] MCH (RBC) [Entitic mass] 28.9 pg Normal 26.0-34.0 [facility] Comment on above: Order Comment: Speci men Type: BLOOD SPECIMENOrdering Facility: [facility] Address: [address] [place] [address] Performed By: #### 5 8410-2 ####[facility] LABORATORYCLIA [id number] [address] MCHC (RBC) [Mass/Vol] 30.6 g/dL Normal 30.5-36.0 [facility] Comment on above: Order Comment: Speci men Type: BLOOD SPECIMENOrdering Facility: [facility] Address: [address] [place] [address] Performed By: #### 5 8410-2 ####[facility] LABORATORYCLIA [id number] [address] OF [facility] MCV (RBC) [Entitic vol] 94.4 fL Normal 80.0-100.0 [facility] Comment on above: Order Comment: Speci men Type: BLOOD SPECIMENOrdering Facility: [facility] Address: [address] [place] [address] Performed By: #### 5 8410-2 ####[facility] LABORATORYCLIA [id number] [address] Nucleated RBC (Bld) [#/Vol] 0.03 10*3/uL High <0.01 [facility] Comment on above: Order Comment: Speci men Type: BLOOD SPECIMENOrdering Facility: [facility] Address: [address] [place] [address] Performed By: #### 5 8410-2 ####[facility] LABORATORYCLIA [id number] [address] Platelet mean volume (Bld) [Entitic vol] 9.9 fL Normal 9.0-12.7 [facility] Comment on above: Order Comment: Speci men Type: BLOOD SPECIMENOrdering Facility: [facility] Address: [address] [place] [address] Performed By: #### 5 8410-2 ####[facility] LABORATORYCLIA [id number] [address] [place] Platelets (Bld) [#/Vol] 567 10*3/uL High 150-400 [facility] Comment on above: Order Comment: Speci men Type: BLOOD SPECIMENOrdering Facility: [facility] Address: [address] [place] [address] Performed By: #### 5 8410-2 ####[facility] LABORATORYCLIA [id number] [place] [address] [place] RBC (Bld) [#/Vol] 2.87 10*6/uL Low 3.90-5.20 [facility] Comment on above: Order Comment: Speci men Type: BLOOD SPECIMENOrdering Facility: [facility] Address: [address] [place] [address] Performed By: #### 5 8410-2 ####[facility] LABORATORYCLIA [id number] [place] [address] [place] WBC (Bld) [#/Vol] 11.98 10*3/uL High 3.70-11.00 [facility] Comment on above: Order Comment: Speci men Type: BLOOD SPECIMENOrdering Facility: [facility] Address: [address] [place] [address] Performed By: #### 5 8410-2 ####[facility] LABORATORYCLIA [id number] [address] [place] THERAPY NTon 05-18-2024 THERAPY NT Normal [facility] URINALYSIS, REFLEX MICROSCOP ICon 05-18-2024 Bacteria LM.HPF (Urine sed) [#/Area] Rare Abnormal None Seen [facility] Comment on above: Order Comment: Speci men Type: URINE SPECIMENOrdering Facility: [facility] Address: [address] [place] [address] Performed By: #### L [id number] ####[facility] LABORATORYCLIA [id number] [address] STATES OF [facility] Bilirubin Ql (U) Negative Normal Negative [facility] Comment on above: Order Comment: Speci men Type: URINE SPECIMENOrdering Facility: [facility] Address: [address] [place] [address] Performed By: #### L [id number] ####[facility] LABORATORYCLIA [id number] [place], [place] [address] [place] [address] OF [place] Clarity (Unsp spec) Dense Turbid Abnormal Clear [facility] Comment on above: Order Comment: Speci men Type: URINE SPECIMENOrdering Facility: [facility] Address: [address] [place] [address] Performed By: #### L [id number] ####[facility] LABORATORYCLIA [id number] [address] [place] Color (U) Murray Abnormal yellow [facility] Comment on above: Order Comment: Speci men Type: URINE SPECIMENOrdering Facility: [facility] Address: [address] [place] [address] Performed By: #### L [id number] ####[facility] LABORATORYCLIA [id number] [address] OF [place] Glucose Test strip (U) [Mass/Vol] Negative Normal Trace, Negative [facility] Comment on above: Order Comment: Speci men Type: URINE SPECIMENOrdering Facility: [facility] Address: [address] [place] [address] Performed By: #### L [id number] ####[facility] LABORATORYCLIA [id number] [place] [address] [place] Hemoglobin Ql (U) 3+ Abnormal Negative, Trace [facility] Comment on above: Order Comment: Speci men Type: URINE SPECIMENOrdering Facility: [facility] Address: [facility] [place] [address] Performed By: #### L [id number] ####[facility] LABORATORYCLIA [id number] [address] OF [place] Ketones Ql (U) Negative Normal Negative, Trace [facility] Comment on above: Order Comment: Speci men Type: URINE SPECIMENOrdering Facility: [facility] Address: [facility] [place] [address] Performed By: #### L [id number] ####[facility]ORATORYCLIA [id number] [address] Leukocyte esterase Test strip Ql (U) 500 Jarrett/uL Abnormal Negative, 25 Jarrett/uL [facility] Comment on above: Order Comment: Speci men Type: URINE SPECIMENOrdering Facility: [facility] Address: [address] [place] [address] Performed By: #### L [id number] ####[facility] LABORATORYCLIA [id number] [address] [place] Nitrite Ql (U) 2+ Abnormal Negative [facility] Comment on above: Order Comment: Speci men Type: URINE SPECIMENOrdering Facility: [facility] Address: [address] [place] [address] Performed By: #### L [id number] ####[facility] LABORATORYCLIA [id number] [address] [place] pH (U) 6.5 [pH] Normal 5.0-8.0 [facility] Comment on above: Order Comment: Speci men Type: URINE SPECIMENOrdering Facility: [facility] Address: [address] [place] [address] Performed By: #### L [id number] ####[facility] LABORATORYCLIA [id number] [address] Protein (U) [Mass/Vol] 2+ Abnormal Trace , Negative [facility] Comment on above: Order Comment: Speci men Type: URINE SPECIMENOrdering Facility: [facility] Address: [address] [place] [address] Performed By: #### L [id number] ####[facility] LABORATORYCLIA [id number] [address] [place] RBC LM.HPF (Urine sed) [#/Area] /[HPF] Abnormal 0-3 /HPF [facility] Comment on above: Order Comment: Speci men Type: URINE SPECIMENOrdering Facility: [facility] Address: [address] [place] [address] Performed By: #### L [id number] ####[facility] LABORATORYCLIA [id number] [address] [place] Specific gravity (U) [Rel density] 1.014 Normal 1.005-1.030 [facility] Comment on above: Order Comment: Speci men Type: URINE SPECIMENOrdering Facility: [facility] Address: [address] [place] [address] Performed By: #### L [id number] ####[facility] LABORATORYCLIA [id number] [place] [address] [place] Urobilinogen Ql (U) Normal Normal Normal [facility] Comment on above: Order Comment: Speci men Type: URINE SPECIMENOrdering Facility: [facility] Address: [address] [place] [address] Performed By: #### L [id number] ####[facility] HUM[facility] SERVICESCLIA [id number] [place] [address] [place] WBC LM.HPF (Urine sed) [#/Area] /[HPF] Abnormal 0-5 /HPF [facility] Comment on above: Order Comment: Speci men Type: URINE SPECIMENOrdering Facility: [facility] Address: [address] [place] [address] Performed By: #### L [id number] ####[facility] LABORATORYCLIA [id number] [place] [address] [place] US DVT LOWER BILon US DVT LOWER POLO Normal [facility] Urinalysis complete panel (U )on 05-18-2024 Bilirubin Ql (U) Normal [facility] Comment on above: Order Comment: Speci men Type: URINE SPECIMENOrdering Facility: [facility] Address: [address] [place] [address] Result Comment: Unab le to quantitate due to possible contamination. Performed By: #### 2 4356-8 ####[facility] LABORATORYCLIA [id number] [place] [address] [place] Clarity (Unsp spec) Turbid Abnormal Clear [facility] Comment on above: Order Comment: Speci men Type: URINE SPECIMENOrdering Facility: [facility] Address: [address] [place] [address] Performed By: #### 2 4356-8 ####[facility]ORATORYCLIA [id number] [place] [id number] [place] Color (U) Yellow Normal Yellow [facility] Comment on above: Order Comment: Speci men Type: URINE SPECIMENOrdering Facility: [facility] Address: [address] [place] [address] Performed By: #### 2 4356-8 ####[facility] LABORATORYCLIA [id number] [address] [place] Glucose Test strip (U) [Mass/Vol] Normal [facility] Comment on above: Order Comment: Speci men Type: URINE SPECIMENOrdering Facility: [facility] Address: [address] [place] [address] Result Comment: Unab le to quantitate due to possible contamination. Performed By: #### 2 4356-8 ####[facility] LABORATORYCLIA [id number] [place] [address] [place] Hemoglobin Ql (U) Normal [facility] Comment on above: Order Comment: Speci men Type: URINE SPECIMENOrdering Facility: [facility] Address: [address] [place] [address] Result Comment: Unab le to quantitate due to possible contamination. Performed By: #### 2 4356-8 ####[facility] LABORATORYCLIA [id number] [place] [address] [place] Ketones Ql (U) Normal [facility] Comment on above: Order Comment: Speci men Type: URINE SPECIMENOrdering Facility: [facility] Address: [address] [place] [address] Result Comment: Unab le to quantitate due to possible contamination. Performed By: #### 2 4356-8 ####[facility] LABORATORYCLIA [id number] [place] [address] [place] Leukocyte esterase Test strip Ql (U) Normal [facility] Comment on above: Order Comment: Speci men Type: URINE SPECIMENOrdering Facility: [facility] Address: [address] [place] [address] Result Comment: Unab le to quantitate due to possible contamination. Performed By: #### 2 4356-8 ####[facility] LABORATORYCLIA [id number] [place] [address] [place] Nitrite Ql (U) Normal [facility] Comment on above: Order Comment: Speci men Type: URINE SPECIMENOrdering Facility: [facility] Address: [address] [place] [address] Result Comment: Unab le to quantitate due to possible contamination. Performed By: #### 2 4356-8 ####[facility] LABORATORYCLIA [id number] [place] [address] [place] pH (U) Normal [facility] Comment on above: Order Comment: Speci men Type: URINE SPECIMENOrdering Facility: [facility] Address: [address] [place] [address] Result Comment: Unab le to quantitate due to possible contamination. Performed By: #### 2 4356-8 ####[facility] LABORATORYCLIA [id number] [address] [place] Protein (U) [Mass/Vol] Normal [facility] Comment on above: Order Comment: Speci men Type: URINE SPECIMENOrdering Facility: [facility] Address: [address] [place] [address] Result Comment: Unab le to quantitate due to possible contamination. Performed By: #### 2 4356-8 ####[facility] LABORATORYCLIA [id number] [address] [place] RBC LM.HPF (Urine sed) [#/Area] /[HPF] Abnormal 0-3 /HPF [facility] Comment on above: Order Comment: Speci men Type: URINE SPECIMENOrdering Facility: [facility] Address: [address] [place] [address] Performed By: #### 2 4356-8 ####[facility] LABORATORYCLIA [id number] [address] STATES [facility] Specific gravity (U) [Rel density] Normal [facility] Comment on above: Order Comment: Speci men Type: URINE SPECIMENOrdering Facility: [facility] Address: [address] [place] [address] Result Comment: Unab le to quantitate due to possible contamination. Performed By: #### 2 4356-8 ####[facility] LABORATORYCLIA [id number] [address] [place] Urobilinogen Ql (U) Normal [facility] Comment on above: Order Comment: Speci men Type: URINE SPECIMENOrdering Facility: [facility] Address: [address] [place] [address] Result Comment: Unab le to quantitate due to possible contamination. Performed By: #### 2 4356-8 ####[facility] LABORATORYCLIA [id number] [address] [place] WBC LM.HPF (Urine sed) [#/Area] /[HPF] Abnormal 0-5 /HPF [facility] Comment on above: Order Comment: Speci men Type: URINE SPECIMENOrdering Facility: [facility] Address: [address] [place] [address] Performed By: #### 2 4356-8 ####[facility] LABORATORYCLIA [id number] [place] [address] [place] Basic metabolic 2000 panelon 05-17-2024 Anion gap [Moles/Vol] 9 mmol/L Normal 8-15 [facility] Comment on above: Order Comment: Speci men Type: BLOOD SPECIMENOrdering Facility: [facility] Address: [address] [place] [address] Performed By: #### 2 4321-2 ####[facility] LABORATORYCLIA [id number] [address] [place] Calcium [Mass/Vol] 7.7 mg/dL Low 8.5-10.2 [facility] Comment on above: Order Comment: Speci men Type: BLOOD SPECIMENOrdering Facility: [facility] Address: [address] [place] [address] Performed By: #### 2 4321-2 ####[facility] LABORATORYCLIA [id number] [address] [place] Chloride [Moles/Vol] 100 mmol/L Normal 98-107 [facility] Comment on above: Order Comment: Speci men Type: BLOOD SPECIMENOrdering Facility: [facility] Address: [address] [place] [address] Performed By: #### 2 4321-2 ####[facility] LABORATORYCLIA [id number] [address] [place] CO2 [Moles/Vol] 27 mmol/L Normal 22-30 [facility] Comment on above: Order Comment: Speci men Type: BLOOD SPECIMENOrdering Facility: [facility] Address: [address] [place] [address] Performed By: #### 2 4321-2 ####[facility] LABORATORYCLIA [id number] [address] OF [facility] Creatinine [Mass/Vol] 0.38 mg/dL Low 0.58-0.96 [facility] Comment on above: Order Comment: Speci men Type: BLOOD SPECIMENOrdering Facility: [facility] Address: [address] [place] [address] Performed By: #### 2 4321-2 ####[facility] LABORATORYCLIA [id number] [address] Creatinine and Glomerular filtration rate.predicted panel (S/P/Bld) 100 mL/min/1.73m??? Normal >=60 [facility] Comment on above: Order Comment: Speci men Type: BLOOD SPECIMENOrdering Facility: [facility] Address: [address] [place] [address] Result Comment: Kaylene mated Glomerular Filtration Rate (eGFR) is calculated using the 2020 CKD-EPI creatinine equation. This equation utilizes serum creatinine, sex, and age as parameters. The creatinine assay has traceable calibration to isotope dilution-mass spectrometry. Refer to KDIGO guidelines for clinical interpretation. In patients with unstable renal function, e.g. those with acute kidney injury, the eGFR may not accurately reflect actual GFR. Performed By: #### 2 4321-2 ####[facility] LABORATORYCLIA [id number] [place] [address] [place] Glucose [Mass/Vol] 105 mg/dL High 74-99 [facility] Comment on above: Order Comment: Helen rg Type: BLOOD SPECIMENOrdering Facility: [facility] Address: [address] [place] [address] Result Comment: The [place] Diabetes [employer] (ADA) provides guidance for cutoff values for fasting glucose and random glucose. The ADA defines fasting as no caloric intake for at least 8 hours. Fasting plasma glucose results between 100 to 125 mg/dL indicate increased risk for diabetes (prediabetes).Fasting plasma glucose results greater than or equal to 126 mg/dL meet the criteria for diagnosis of diabetes. In the absence of unequivocal hyperglycemia, results should be confirmed by repeat testing. In a patient with classic symptoms of hyperglycemia or hyperglycemic crisis, random plasma glucose results greater than or equal to 200 mg/dL meet the criteria for diagnosis of diabetes.Reference: Standards of Medical Care in Diabetes 2016, [place] [employer]. Diabetes Care. 2016.39(Suppl 1). Performed By: #### 2 4321-2 ####[facility] LABORATORYCLIA [id number] [place] [address] [place] Potassium [Moles/Vol] 4.5 mmol/L Normal 3.7-5.1 [facility] Comment on above: Order Comment: Helen rg Type: BLOOD SPECIMENOrdering Facility: [facility] Address: [address] [place] [id number] Performed By: #### 2 4321-2 ####[facility] LABORATORYCLIA [id number] [place] [id number] [place] Sodium [Moles/Vol] 136 mmol/L Normal 136-144 [facility] Comment on above: Order Comment: Helen rg Type: BLOOD SPECIMENOrdering Facility: [facility] Address: [address] [place] [address] Performed By: #### 2 4321-2 ####[facility] LABORATORYCLIA [id number] [address] STATES [place] Urea nitrogen [Mass/Vol] 16 mg/dL Normal 7-21 [facility] Comment on above: Order Comment: Speci men Type: BLOOD SPECIMENOrdering Facility: [facility] Address: [address] [place] [address] Performed By: #### 2 4321-2 ####[facility] LABORATORYCLIA [id number] [place] [id number] [place] CASE MANAGEMon 05-17-2024 CASE MANAGEM Normal [facility] CBC panel Auto (Bld)on 05-17 Erythrocyte distribution width (RBC) [Ratio] 15.3 % High 11.5-15.0 [facility] Comment on above: Order Comment: Speci men Type: BLOOD SPECIMENOrdering Facility: [facility] Address: [address] [place] [address] Performed By: #### 5 8410-2 ####[facility] LABORATORYCLIA [id number] [address] [place] Hematocrit (Bld) [Volume fraction] 26.3 % Low 36.0-46.0 [facility] Comment on above: Order Comment: Speci men Type: BLOOD SPECIMENOrdering Facility: [facility] Address: [address] [place] [address] Performed By: #### 5 8410-2 ####[facility] LABORATORYCLIA [id number] [address] [place] Hemoglobin (Bld) [Mass/Vol] 8.0 g/dL Low 11.5-15.5 [facility] Comment on above: Order Comment: Speci men Type: BLOOD SPECIMENOrdering Facility: [facility] Address: [address] [place] [address] Performed By: #### 5 8410-2 ####[facility] LABORATORYCLIA [id number] [place] [address] [place] MCH (RBC) [Entitic mass] 29.1 pg Normal 26.0-34.0 [facility] Comment on above: Order Comment: Speci men Type: BLOOD SPECIMENOrdering Facility: [facility] Address: [address] [place] [address] Performed By: #### 5 8410-2 ####[facility] LABORATORYCLIA [id number] [address] STATES [facility] MCHC (RBC) [Mass/Vol] 30.4 g/dL Low 30.5-36.0 [facility] Comment on above: Order Comment: Speci men Type: BLOOD SPECIMENOrdering Facility: [facility] Address: [address] [place] [address] Performed By: #### 5 8410-2 ####[facility] LABORATORYCLIA [id number] [address] MCV (RBC) [Entitic vol] 95.6 fL Normal 80.0-100.0 [facility] Comment on above: Order Comment: Speci men Type: BLOOD SPECIMENOrdering Facility: [facility] Address: [address] [place] [address] Performed By: #### 5 8410-2 ####[facility] LABORATORYCLIA [id number] [address] Nucleated RBC (Bld) [#/Vol] 0.06 10*3/uL High <0.01 [facility] Comment on above: Order Comment: Speci men Type: BLOOD SPECIMENOrdering Facility: [facility] Address: [address] [place] [address] Performed By: #### 5 8410-2 ####[facility] LABORATORYCLIA [id number] [address] Platelet mean volume (Bld) [Entitic vol] 10.2 fL Normal 9.0-12.7 [facility] Comment on above: Order Comment: Speci men Type: BLOOD SPECIMENOrdering Facility: [facility] Address: [address] [place] [address] Performed By: #### 5 8410-2 ####[facility] LABORATORYCLIA [id number] [place] [address] [place] Platelets (Bld) [#/Vol] 386 10*3/uL Normal 150-400 [facility] Comment on above: Order Comment: Speci men Type: BLOOD SPECIMENOrdering Facility: [facility] Address: [address] [place] [address] Performed By: #### 5 8410-2 ####[facility] LABORATORYCLIA [id number] [place] [address] [place] RBC (Bld) [#/Vol] 2.75 10*6/uL Low 3.90-5.20 [facility] Comment on above: Order Comment: Speci men Type: BLOOD SPECIMENOrdering Facility: [facility] Address: [address] [place] [address] Performed By: #### 5 8410-2 ####[facility] LABORATORYCLIA [id number] [address] [place] WBC (Bld) [#/Vol] 9.63 10*3/uL Normal 3.70-11.00 [facility] Comment on above: Order Comment: Speci men Type: BLOOD SPECIMENOrdering Facility: [facility] Address: [address] [place] [address] Performed By: #### 5 8410-2 ####[facility] LABORATORYCLIA [id number] [place] [id number] [place] ALIE Basic metabolic 2000 panelon 05-16-2024 Anion gap [Moles/Vol] 9 mmol/L Normal 8-15 [facility] Comment on above: Order Comment: Speci men Type: BLOOD SPECIMENOrdering Facility: [facility] Address: [address] [place] [address] Performed By: #### 2 4321-2, 66076-0, 2777-1, 75749-7 ####[facility] LABORATORYCLIA [id number] [place] [address] [place] Calcium [Mass/Vol] 8.1 mg/dL Low 8.5-10.2 [facility] Comment on above: Order Comment: Speci men Type: BLOOD SPECIMENOrdering Facility: [facility] Address: [address] [place] [address] Performed By: #### 2 4321-2, , 2776-05, 52838-2 ####[facility] LABORATORYCLIA [id number] [place] [address] [place] Chloride [Moles/Vol] 102 mmol/L Normal 98-107 [facility] Comment on above: Order Comment: Speci men Type: BLOOD SPECIMENOrdering Facility: [facility] Address: [address] [place] [address] Performed By: #### 2 4321-2, , 2776-05, 94142-6 ####[facility] SERVICESCLIA [id number] [address] STATES [facility] CO2 [Moles/Vol] 27 mmol/L Normal 22-30 [facility] Comment on above: Order Comment: Speci men Type: BLOOD SPECIMENOrdering Facility: [facility] Address: [address] [place] [address] Performed By: #### 2 4321-2, , 2776-05, 71713-0 ####[facility] LABORATORYCLIA [id number] [address] STATES [place] [facility] Creatinine [Mass/Vol] 0.40 mg/dL Low 0.58-0.96 [facility] Comment on above: Order Comment: Speci men Type: BLOOD SPECIMENOrdering Facility: [facility] Address: [address] [place] [address] Performed By: #### 2 4321-2, , 2776-05, 90654-5 ####[facility] LABORATORYCLIA [id number] [address] Creatinine and Glomerular filtration rate.predicted panel (S/P/Bld) 99 mL/min/1.73m??? Normal >=60 [facility] Comment on above: Order Comment: Speci men Type: BLOOD SPECIMENOrdering Facility: [facility] Address: [address] [place] [address] Result Comment: Kaylene mated Glomerular Filtration Rate (eGFR) is calculated using the 2020 CKD-EPI creatinine equation. This equation utilizes serum creatinine, sex, and age as parameters. The creatinine assay has traceable calibration to isotope dilution-mass spectrometry. Refer to KDIGO guidelines for clinical interpretation. In patients with unstable renal function, e.g. those with acute kidney injury, the eGFR may not accurately reflect actual GFR. Performed By: #### 2 4321-2, 62601-3, 2777-, 05998-6 ####[facility] H[facility] SERVICESCLIA [id number] [place] [address] [place] Glucose [Mass/Vol] 93 mg/dL Normal 74-99 [facility] Comment on above: Order Comment: Specmigel men Type: BLOOD SPECIMENOrdering Facility: [facility] Address: [address] [place] [address] Result Comment: The [place] Diabetes [employer] (ADA) provides guidance for cutoff values for fasting glucose and random glucose. The ADA defines fasting as no caloric intake for at least 8 hours. Fasting plasma glucose results between 100 to 125 mg/dL indicate increased risk for diabetes (prediabetes).Fasting plasma glucose results greater than or equal to 126 mg/dL meet the criteria for diagnosis of diabetes. In the absence of unequivocal hyperglycemia, results should be confirmed by repeat testing. In a patient with classic symptoms of hyperglycemia or hyperglycemic crisis, random plasma glucose results greater than or equal to 200 mg/dL meet the criteria for diagnosis of diabetes.Reference: Standards of Medical Care in Diabetes 2016, [employer] Diabetes Association. Diabetes Care. 2016.39(Suppl 1). Performed By: #### 2 4321-2, 45122-8, 2777-1, 44846-0 ####[facility] LABORATORYCLIA [id number] [place] [id number] [place] Potassium [Moles/Vol] 3.8 mmol/L Normal 3.7-5.1 [facility] Comment on above: Order Comment: Specmigel men Type: BLOOD SPECIMENOrdering Facility: [facility] Address: [address] [place] [address] Performed By: #### 2 4321-2, 65128-9, 2777-1, 77460-6 ####[facility] LABORATORYCLIA [id number] [address] STATES [facility] Sodium [Moles/Vol] 138 mmol/L Normal 136-144 [facility] Comment on above: Order Comment: Speci men Type: BLOOD SPECIMENOrdering Facility: [facility] Address: [address] [place] [address] Performed By: #### 2 4321-2, 20175-2, 2776-, 64561-9 ####[facility] LABORATORYCLIA [id number] [address] STATES [facility] Urea nitrogen [Mass/Vol] 18 mg/dL Normal 7-21 [facility] Comment on above: Order Comment: Speci men Type: BLOOD SPECIMENOrdering Facility: [facility] Address: [address] [place] [address] Performed By: #### 2 4321-2, 71338-3, 2776-05, 80578-8 ####[facility] LABORATORYCLIA [id number] [address] CBC panel Auto (Bld)on 05-16 Erythrocyte distribution width (RBC) [Ratio] 15.1 % High 11.5-15.0 [facility] Comment on above: Order Comment: Speci men Type: BLOOD SPECIMENOrdering Facility: [facility] Address: [address] [place] [address] Performed By: #### 5 8410-2 ####[facility] LABORATORYCLIA [id number] [address] Hematocrit (Bld) [Volume fraction] 28.4 % Low 36.0-46.0 [facility] Comment on above: Order Comment: Speci men Type: BLOOD SPECIMENOrdering Facility: [facility] Address: [address] [place] [address] Performed By: #### 5 8410-2 ####[facility] LABORATORYCLIA [id number] [place] [address] Hemoglobin (Bld) [Mass/Vol] 8.9 g/dL Low 11.5-15.5 [facility] Comment on above: Order Comment: Speci men Type: BLOOD SPECIMENOrdering Facility: [facility] Address: [address] [place] [address] Performed By: #### 5 8410-2 ####[facility] LABORATORYCLIA [id number] [address] MCH (RBC) [Entitic mass] 29.7 pg Normal 26.0-34.0 [facility] Comment on above: Order Comment: Speci men Type: BLOOD SPECIMENOrdering Facility: [facility] Address: [address] [place] [address] Performed By: #### 5 8410-2 ####[facility] LABORATORYCLIA [id number] [address] MCHC (RBC) [Mass/Vol] 31.3 g/dL Normal 30.5-36.0 [facility] Comment on above: Order Comment: Speci men Type: BLOOD SPECIMENOrdering Facility: [facility] Address: [address] [place] [address] Performed By: #### 5 8410-2 ####[facility] LABORATORYCLIA [id number] [address] MCV (RBC) [Entitic vol] 94.7 fL Normal 80.0-100.0 [facility] Comment on above: Order Comment: Speci men Type: BLOOD SPECIMENOrdering Facility: [facility] Address: [address] [place] [address] Performed By: #### 5 8410-2 ####[facility] LABORATORYCLIA [id number] [address] Nucleated RBC (Bld) [#/Vol] 0.08 10*3/uL High <0.01 [facility] Comment on above: Order Comment: Speci men Type: BLOOD SPECIMENOrdering Facility: [facility] Address: [address] [place], [place] [address] Performed By: #### 5 8410-2 ####[facility] LABORATORYCLIA [id number] [address] Platelet mean volume (Bld) [Entitic vol] 10.1 fL Normal 9.0-12.7 [facility] Comment on above: Order Comment: Speci men Type: BLOOD SPECIMENOrdering Facility: [facility] Address: [address] [place] [address] Performed By: #### 5 8410-2 ####[facility] LABORATORYCLIA [id number] [address] OF [place] Platelets (Bld) [#/Vol] 509 10*3/uL High 150-400 [facility] Comment on above: Order Comment: Speci men Type: BLOOD SPECIMENOrdering Facility: [facility] Address: [address] [place] [address] Performed By: #### 5 8410-2 ####[facility] LABORATORYCLIA [id number] [address] STATES [place] RBC (Bld) [#/Vol] 3.00 10*6/uL Low 3.90-5.20 [facility] Comment on above: Order Comment: Speci men Type: BLOOD SPECIMENOrdering Facility: [facility] Address: [address] [place] [address] Performed By: #### 5 8410-2 ####[facility] LABORATORYCLIA [id number] [address] STATES [place] WBC (Bld) [#/Vol] 11.08 10*3/uL High 3.70-11.00 [facility] Comment on above: Order Comment: Speci men Type: BLOOD SPECIMENOrdering Facility: [facility] Address: [address] [place] [address] Performed By: #### 5 8410-2 ####[facility] LABORATORYCLIA [id number] [address] OF [place] Hepatic function 2000 panelo n 05-16-2024 Albumin [Mass/Vol] 2.4 g/dL Low 3.9-4.9 [facility] Comment on above: Order Comment: Speci men Type: BLOOD SPECIMENOrdering Facility: [facility] Address: [address] [place] [address] Performed By: #### 2 4321-2, 71903-3, 2776-1, 03160-6 ####[facility] LABORATORYCLIA [id number] [address] STATES [place] [facility] ALP [Catalytic activity/Vol] 119 U/L Normal 34-123 [facility] Comment on above: Order Comment: Speci men Type: BLOOD SPECIMENOrdering Facility: [facility] Address: [address] [place] [address] Performed By: #### 2 4321-2, , 2776-, 67694-5 ####[facility] LABORATORYCLIA [id number] [address] [place] [facility] ALT With P-5'-P [Catalytic activity/Vol] 15 U/L Normal 7-38 [facility] Comment on above: Order Comment: Speci men Type: BLOOD SPECIMENOrdering Facility: [facility] Address: [address] [place] [address] Performed By: #### 2 4321-2, , 2776-, 67405-2 ####[facility] LABORATORYCLIA [id number] [address] [place] [facility] AST With P-5'-P [Catalytic activity/Vol] 15 U/L Normal 13-35 [facility] Comment on above: Order Comment: Speci men Type: BLOOD SPECIMENOrdering Facility: [facility] Address: [address] [place] [address] Performed By: #### 2 4321-2, , 2776-1, 81844-2 ####[facility] LABORATORYCLIA [id number] [address] STATES [place] Bilirubin [Mass/Vol] 0.4 mg/dL Normal 0.2-1.3 [facility] Comment on above: Order Comment: Speci men Type: BLOOD SPECIMENOrdering Facility: [facility] Address: [address] [place] [address] Performed By: #### 2 4321-2, 84529-3, 277-, 94753-6 ####[facility] LABORATORYCLIA [id number] [place] [address] [place] Bilirubin.conjugated [Mass/Vol] mg/dL Normal <0.2 [facility] Comment on above: Order Comment: Speci men Type: BLOOD SPECIMENOrdering Facility: [facility] Address: [address] [place] [address] Performed By: #### 2 4321-2, , 2776-05, 27811-5 ####[facility] LABORATORYCLIA [id number] [place] [address] [place] Protein [Mass/Vol] 5.4 g/dL Low 6.3-8.0 [facility] Comment on above: Order Comment: Speci men Type: BLOOD SPECIMENOrdering Facility: [facility] Address: [address] [place] [address] Performed By: #### 2 4321-2, , 2776-05, 33881-9 ####[facility] LABORATORYCLIA [id number] [place] [address] [place] Magnesium SerPl-mCncon 05-16 Magnesium [Mass/Vol] 1.9 mg/dL Normal 1.7-2.3 [facility] Comment on above: Order Comment: Speci men Type: BLOOD SPECIMENOrdering Facility: [facility] Address: [address] [place] [address] Performed By: #### 2 4321-2, 18558-7, 27711-28, 51136-9 ####[facility] LABORATORYCLIA [id number] [place] [address] [place] Phosphate SerPl-mCncon 05-16 Phosphate [Mass/Vol] 3.5 mg/dL Normal 2.7-4.8 [facility] Comment on above: Order Comment: Speci men Type: BLOOD SPECIMENOrdering Facility: [facility] Address: [address] [place] [address] Performed By: #### 2 4321-2, 43989-4, 2777-1, 73732-3 ####[facility] LABORATORYCLIA [id number] [place] [address] [place] THERAPY NTon 05-16-2024 THERAPY NT Normal [facility] Basic metabolic 2000 panelon 05-15-2024 Anion gap [Moles/Vol] 7 mmol/L Low 8-15 [facility] Comment on above: Order Comment: Speci men Type: BLOOD SPECIMENOrdering Facility: [facility] Address: [address] [place] [address] Performed By: #### 2 777-1, 58771-0, ####[facility] LABORATORYCLIA [id number] [place] [address] [place] Calcium [Mass/Vol] 8.2 mg/dL Low 8.5-10.2 [facility] Comment on above: Order Comment: Speci men Type: BLOOD SPECIMENOrdering Facility: [facility] Address: [address] [place] [address] Performed By: #### 2 777-1, 42479-9, ####[facility] LABORATORYCLIA [id number] [place] [address] [place] Chloride [Moles/Vol] 107 mmol/L Normal 98-107 [facility] Comment on above: Order Comment: Speci men Type: BLOOD SPECIMENOrdering Facility: [facility] Address: [address] [place] [address] Performed By: #### 2 777-1, 33103-0, ####[facility] LABORATORYCLIA [id number] [place] [address] [place] CO2 [Moles/Vol] 27 mmol/L Normal 22-30 [facility] Comment on above: Order Comment: Speci men Type: BLOOD SPECIMENOrdering Facility: [facility] Address: [address] [place] [address] Performed By: #### 2 777-1, 63053-8, ####[facility] SERVICESCLIA [id number] [place] [id number] [place] Creatinine [Mass/Vol] 0.37 mg/dL Low 0.58-0.96 [facility] Comment on above: Order Comment: Speci men Type: BLOOD SPECIMENOrdering Facility: [facility] Address: [address] [place] [address] Performed By: #### 2 777-1, 02680-7, ####[facility] SERVICESCLIA [id number] [address] Creatinine and Glomerular filtration rate.predicted panel (S/P/Bld) 101 mL/min/1.73m??? Normal >=60 [facility] Comment on above: Order Comment: Speci men Type: BLOOD SPECIMENOrdering Facility: [facility] Address: [address] [place] [address] Result Comment: Kaylene mated Glomerular Filtration Rate (eGFR) is calculated using the 2020 CKD-EPI creatinine equation. This equation utilizes serum creatinine, sex, and age as parameters. The creatinine assay has traceable calibration to isotope dilution-mass spectrometry. Refer to KDIGO guidelines for clinical interpretation. In patients with unstable renal function, e.g. those with acute kidney injury, the eGFR may not accurately reflect actual GFR. Performed By: #### 2 777-1, 98809-0, ####[facility] LABORATORYCLIA [id number] [place] [id number] [place] Glucose [Mass/Vol] 164 mg/dL High 74-99 [facility] Comment on above: Order Comment: Speci men Type: BLOOD SPECIMENOrdering Facility: [facility] Address: [address] [place] [address] Result Comment: The [place] Diabetes Association (ADA) provides guidance for cutoff values for fasting glucose and random glucose. The ADA defines fasting as no caloric intake for at least 8 hours. Fasting plasma glucose results between 100 to 125 mg/dL indicate increased risk for diabetes (prediabetes).Fasting plasma glucose results greater than or equal to 126 mg/dL meet the criteria for diagnosis of diabetes. In the absence of unequivocal hyperglycemia, results should be confirmed by repeat testing. In a patient with classic symptoms of hyperglycemia or hyperglycemic crisis, random plasma glucose results greater than or equal to 200 mg/dL meet the criteria for diagnosis of diabetes.Reference: Standards of Medical Care in Diabetes 2016, [place] [employer]. Diabetes Care. 2016.39(Suppl 1). Performed By: #### 2 777-1, 17006-3, ####[facility] LABORATORYCLIA [id number] [place] [address] [place] Potassium [Moles/Vol] 4.2 mmol/L Normal 3.7-5.1 [facility] Comment on above: Order Comment: Helen rg Type: BLOOD SPECIMENOrdering Facility: [facility] Address: [address] [place] [address] Performed By: #### 2 777-1, , ####[facility] LABORATORYCLIA [id number] [place] [address] [place] Sodium [Moles/Vol] 141 mmol/L Normal 136-144 [facility] Comment on above: Order Comment: Helen rg Type: BLOOD SPECIMENOrdering Facility: [facility] Address: [address] [place] [address] Performed By: #### 2 777-1, , ####[facility] LABORATORYCLIA [id number] [place] [address] [place] Urea nitrogen [Mass/Vol] 21 mg/dL Normal 7-21 [facility] Comment on above: Order Comment: Helen rg Type: BLOOD SPECIMENOrdering Facility: [facility] Address: [address] [place] [address] Performed By: #### 2 777-1, 38334-5, ####[facility] LABORATORYCLIA [id number] [place] [address] CASE MANAGEMon 05-15-2024 CASE MANAGEM Normal [facility] CASE MANAGEM Normal [facility] CASE MANAGEM Normal [facility] CBC panel Auto (Bld)on 05-15 Erythrocyte distribution width (RBC) [Ratio] 15.2 % High 11.5-15.0 [facility] Comment on above: Order Comment: Speci men Type: BLOOD SPECIMENOrdering Facility: [facility] Address: [address] [place] [address] Performed By: #### 5 8410-2 ####[facility] LABORATORYCLIA [id number] [address] Hematocrit (Bld) [Volume fraction] 28.5 % Low 36.0-46.0 [facility] Comment on above: Order Comment: Speci men Type: BLOOD SPECIMENOrdering Facility: [facility] Address: [address] [place] [address] Performed By: #### 5 8410-2 ####[facility] LABORATORYCLIA [id number] [address] STATES [place] [facility] Hemoglobin (Bld) [Mass/Vol] 8.7 g/dL Low 11.5-15.5 [facility] Comment on above: Order Comment: Speci men Type: BLOOD SPECIMENOrdering Facility: [facility] Address: [address] [place] [address] Performed By: #### 5 8410-2 ####[facility] LABORATORYCLIA [id number] [address] STATES [facility] MCH (RBC) [Entitic mass] 29.7 pg Normal 26.0-34.0 [facility] Comment on above: Order Comment: Speci men Type: BLOOD SPECIMENOrdering Facility: [facility] Address: [address] [place] [address] Performed By: #### 5 8410-2 ####[facility] LABORATORYCLIA [id number] [address] STATES [facility] MCHC (RBC) [Mass/Vol] 30.5 g/dL Normal 30.5-36.0 [facility] Comment on above: Order Comment: Speci men Type: BLOOD SPECIMENOrdering Facility: [facility] Address: [facility] [place] [address] Performed By: #### 5 8410-2 ####[facility] LABORATORYCLIA [id number] [address] OF [place] MCV (RBC) [Entitic vol] 97.3 fL Normal 80.0-100.0 [facility] Comment on above: Order Comment: Speci men Type: BLOOD SPECIMENOrdering Facility: [facility] Address: [address] [place] [address] Performed By: #### 5 8410-2 ####[facility] LABORATORYCLIA [id number] [address] STATES [place] Nucleated RBC (Bld) [#/Vol] 0.07 10*3/uL High <0.01 [facility] Comment on above: Order Comment: Speci men Type: BLOOD SPECIMENOrdering Facility: [facility] Address: [address] [place] [address] Performed By: #### 5 8410-2 ####[facility] LABORATORYCLIA [id number] [address] [place] Platelet mean volume (Bld) [Entitic vol] 10.2 fL Normal 9.0-12.7 [facility] Comment on above: Order Comment: Speci men Type: BLOOD SPECIMENOrdering Facility: [facility] Address: [address] [place] [address] Performed By: #### 5 8410-2 ####[facility] LABORATORYCLIA [id number] [address] [place] Platelets (Bld) [#/Vol] 485 10*3/uL High 150-400 [facility] Comment on above: Order Comment: Speci men Type: BLOOD SPECIMENOrdering Facility: [facility] Address: [address] [place] [address] Performed By: #### 5 8410-2 ####[facility] LABORATORYCLIA [id number] [place] [address] [place] RBC (Bld) [#/Vol] 2.93 10*6/uL Low 3.90-5.20 [facility] Comment on above: Order Comment: Speci men Type: BLOOD SPECIMENOrdering Facility: [facility] Address: [address] [place] [address] Performed By: #### 5 8410-2 ####[facility] LABORATORYCLIA [id number] [address] [place] WBC (Bld) [#/Vol] 11.61 10*3/uL High 3.70-11.00 [facility] Comment on above: Order Comment: Speci men Type: BLOOD SPECIMENOrdering Facility: [facility] Address: [address] [place] [address] Performed By: #### 5 8410-2 ####[facility] LABORATORYCLIA [id number] [address] [place] CONSULT PROGon 05-15-2024 CONSULT PROG Normal [facility] Magnesium SerPl-ncon 05-15 Magnesium [Mass/Vol] 2.0 mg/dL Normal 1.7-2.3 [facility] Comment on above: Order Comment: Speci men Type: BLOOD SPECIMENOrdering Facility: [facility] Address: [address] [place] [address] Performed By: #### 2 777-1, 23811-3, 65865-7 ####[facility] LABORATORYCLIA [id number] [address] STATES [place] NM HEPATOBILIARY WO RXon NM HEPATOBILIARY WO RX Normal [facility] NUTRITIONon 05-15-2024 NUTRITION Normal [facility] Phosphate SerPl-mCncon 05-15 Phosphate [Mass/Vol] 2.0 mg/dL Low 2.7-4.8 [facility] Comment on above: Order Comment: Speci men Type: BLOOD SPECIMENOrdering Facility: [facility] Address: [address] [place] [address] Performed By: #### 2 777-1, 35931-3, ####[facility] LABORATORYCLIA [id number] [place] [id number] [place] Basic metabolic 2000 panelon 05-14-2024 Anion gap [Moles/Vol] 7 mmol/L Low 8-15 [facility] Comment on above: Order Comment: Speci men Type: BLOOD SPECIMENOrdering Facility: [facility] Address: [address] [place] [address] Performed By: #### 2 4321-2, 2776-05, ####[facility] LABORATORYCLIA [id number] [place] [address] [place] Calcium [Mass/Vol] 8.0 mg/dL Low 8.5-10.2 [facility] Comment on above: Order Comment: Speci men Type: BLOOD SPECIMENOrdering Facility: [facility] Address: [address] [place] [address] Performed By: #### 2 4321-2, 2776-05, ####[facility] LABORATORYCLIA [id number] [place] [address] [place] Chloride [Moles/Vol] 110 mmol/L High 98-107 [facility] Comment on above: Order Comment: Speci men Type: BLOOD SPECIMENOrdering Facility: [facility] Address: [address] [place] [address] Performed By: #### 2 4321-2, 2776-05, ####[facility] LABORATORYCLIA [id number] [place] [address] [place] CO2 [Moles/Vol] 26 mmol/L Normal 22-30 [facility] Comment on above: Order Comment: Speci men Type: BLOOD SPECIMENOrdering Facility: [facility] Address: [address] [place] [address] Performed By: #### 2 4321-2, 2776-, ####[facility] LABORATORYCLIA [id number] [place] [address] [place] Creatinine [Mass/Vol] 0.47 mg/dL Low 0.58-0.96 [facility] Comment on above: Order Comment: Helen rg Type: BLOOD SPECIMENOrdering Facility: [facility] Address: [address] [place] [address] Performed By: #### 2 4321-2, 2777-, ####[facility] LABORATORYCLIA [id number] [place] [id number] [facility] Creatinine and Glomerular filtration rate.predicted panel (S/P/Bld) 95 mL/min/1.73m??? Normal >=60 [facility] Comment on above: Order Comment: Helen rg Type: BLOOD SPECIMENOrdering Facility: [facility] Address: [address] [place] [address] Result Comment: Kaylene mated Glomerular Filtration Rate (eGFR) is calculated using the 2020 CKD-EPI creatinine equation. This equation utilizes serum creatinine, sex, and age as parameters. The creatinine assay has traceable calibration to isotope dilution-mass spectrometry. Refer to KDIGO guidelines for clinical interpretation. In patients with unstable renal function, e.g. those with acute kidney injury, the eGFR may not accurately reflect actual GFR. Performed By: #### 2 4321-2, 2777-, ####[facility] LABORATORYCLIA [id number] [place] [address] [place] [facility] Glucose [Mass/Vol] 224 mg/dL High 74-99 [facility] Comment on above: Order Comment: Helen rg Type: BLOOD SPECIMENOrdering Facility: [facility] Address: [address] [place] [address] Result Comment: The [place] Diabetes Association (ADA) provides guidance for cutoff values for fasting glucose and random glucose. The ADA defines fasting as no caloric intake for at least 8 hours. Fasting plasma glucose results between 100 to 125 mg/dL indicate increased risk for diabetes (prediabetes).Fasting plasma glucose results greater than or equal to 126 mg/dL meet the criteria for diagnosis of diabetes. In the absence of unequivocal hyperglycemia, results should be confirmed by repeat testing. In a patient with classic symptoms of hyperglycemia or hyperglycemic crisis, random plasma glucose results greater than or equal to 200 mg/dL meet the criteria for diagnosis of diabetes.Reference: Standards of Medical Care in Diabetes 2016, [employer] Diabetes Association. Diabetes Care. 2016.39(Suppl 1). Performed By: #### 2 4321-2, 2776-05, ####[facility] LABORATORYCLIA [id number] [place] [address] [place] Potassium [Moles/Vol] 4.2 mmol/L Normal 3.7-5.1 [facility] Comment on above: Order Comment: Speci men Type: BLOOD SPECIMENOrdering Facility: [facility] Address: [address] [place] [address] Performed By: #### 2 4321-2, 2776-05, ####[facility] SERVICESCLIA [id number] [address] [place] [facility] Sodium [Moles/Vol] 143 mmol/L Normal 136-144 [facility] Comment on above: Order Comment: Speci men Type: BLOOD SPECIMENOrdering Facility: [facility] Address: [address] [place] [address] Performed By: #### 2 4321-2, 2776-05, ####[facility] LABORATORYCLIA [id number] [address] [place] Urea nitrogen [Mass/Vol] 21 mg/dL Normal 7-21 [facility] Comment on above: Order Comment: Speci men Type: BLOOD SPECIMENOrdering Facility: [facility] Address: [address] [place] [address] Performed By: #### 2 4321-2, 2776-05, ####[facility] LABORATORYCLIA [id number] [address] [place] CBC panel Auto (Bld)on 05-14 Erythrocyte distribution width (RBC) [Ratio] 15.3 % High 11.5-15.0 [facility] Comment on above: Order Comment: Speci men Type: BLOOD SPECIMENOrdering Facility: [facility] Address: [address] [place] [address] Performed By: #### 5 8410-2 ####[facility] LABORATORYCLIA [id number] [address] Hematocrit (Bld) [Volume fraction] 24.1 % Low 36.0-46.0 [facility] Comment on above: Order Comment: Speci men Type: BLOOD SPECIMENOrdering Facility: [facility] Address: [address] [place] [address] Performed By: #### 5 8410-2 ####[facility] LABORATORYCLIA [id number] [address] [facility] Hemoglobin (Bld) [Mass/Vol] 7.5 g/dL Low 11.5-15.5 [facility] Comment on above: Order Comment: Speci men Type: BLOOD SPECIMENOrdering Facility: [facility] Address: [address] [place] [address] Performed By: #### 5 8410-2 ####[facility] LABORATORYCLIA [id number] [address] MCH (RBC) [Entitic mass] 29.6 pg Normal 26.0-34.0 [facility] Comment on above: Order Comment: Speci men Type: BLOOD SPECIMENOrdering Facility: [facility] Address: [address] [place] [address] Performed By: #### 5 8410-2 ####[facility] LABORATORYCLIA [id number] [address] [place] MCHC (RBC) [Mass/Vol] 31.1 g/dL Normal 30.5-36.0 [facility] Comment on above: Order Comment: Speci men Type: BLOOD SPECIMENOrdering Facility: [facility] Address: [address] [place] [address] Performed By: #### 5 8410-2 ####[facility] LABORATORYCLIA [id number] [place] [address] [place] MCV (RBC) [Entitic vol] 95.3 fL Normal 80.0-100.0 [facility] Comment on above: Order Comment: Speci men Type: BLOOD SPECIMENOrdering Facility: [facility] Address: [address] [place] [address] Performed By: #### 5 8410-2 ####[facility] LABORATORYCLIA [id number] [place] [address] [place] Nucleated RBC (Bld) [#/Vol] 0.02 10*3/uL High <0.01 [facility] Comment on above: Order Comment: Speci men Type: BLOOD SPECIMENOrdering Facility: [facility] Address: [address] [place] [address] Performed By: #### 5 8410-2 ####[facility] LABORATORYCLIA [id number] [place] [address] [place] Platelet mean volume (Bld) [Entitic vol] 10.1 fL Normal 9.0-12.7 [facility] Comment on above: Order Comment: Speci men Type: BLOOD SPECIMENOrdering Facility: [facility] Address: [address] [place] [address] Performed By: #### 5 8410-2 ####[facility] LABORATORYCLIA [id number] [address] [place] Platelets (Bld) [#/Vol] 409 10*3/uL High 150-400 [facility] Comment on above: Order Comment: Speci men Type: BLOOD SPECIMENOrdering Facility: [facility] Address: [address] [place] [address] Performed By: #### 5 8410-2 ####[facility] LABORATORYCLIA [id number] [place] [address] [place] RBC (Bld) [#/Vol] 2.53 10*6/uL Low 3.90-5.20 [facility] Comment on above: Order Comment: Speci men Type: BLOOD SPECIMENOrdering Facility: [facility] Address: [address] [place] [address] Performed By: #### 5 8410-2 ####[facility] LABORATORYCLIA [id number] [place] [address] [place] WBC (Bld) [#/Vol] 7.33 10*3/uL Normal 3.70-11.00 [facility] Comment on above: Order Comment: Speci men Type: BLOOD SPECIMENOrdering Facility: [facility] Address: [address] [place] [address] Performed By: #### 5 8410-2 ####[facility] LABORATORYCLIA [id number] [place] [address] [place] Magnesium SerPl-[facility] 05-14 Magnesium [Mass/Vol] 2.0 mg/dL Normal 1.7-2.3 [facility] Comment on above: Order Comment: Speci men Type: BLOOD SPECIMENOrdering Facility: [facility] Address: [address] [place] [address] Performed By: #### 2 4321-2, 27711-28, ####[facility] LABORATORYCLIA [id number] [address] [place] Phosphate SerPl-mCncon 05-14 Phosphate [Mass/Vol] 2.9 mg/dL Normal 2.7-4.8 [facility] Comment on above: Order Comment: Speci men Type: BLOOD SPECIMENOrdering Facility: [facility] Address: [address] [place], [place] [address] Performed By: #### 2 4321-2, 27711-28, ####[facility] LABORATORYCLIA [id number] [place] [address] [place] THERAPY NTon 05-14-2024 THERAPY NT Normal [facility] Basic metabolic 2000 panelon 05-13-2024 Anion gap [Moles/Vol] 12 mmol/L Normal 8-15 [facility] Comment on above: Order Comment: Speci men Type: BLOOD SPECIMENOrdering Facility: [facility] Address: [address] [place] [address] Performed By: #### 2 4321-2, , 2776-05 ####[facility] LABORATORYCLIA [id number] [place] [address] [place] Calcium [Mass/Vol] 8.3 mg/dL Low 8.5-10.2 [facility] Comment on above: Order Comment: Speci men Type: BLOOD SPECIMENOrdering Facility: [facility] Address: [address] [place] [address] Performed By: #### 2 4321-2, , 2776-05 ####[facility] LABORATORYCLIA [id number] [place] [address] [place] Chloride [Moles/Vol] 107 mmol/L Normal 98-107 [facility] Comment on above: Order Comment: Speci men Type: BLOOD SPECIMENOrdering Facility: [facility] Address: [address] [place] [address] Performed By: #### 2 4321-2, , 2776-05 ####[facility] LABORATORYCLIA [id number] [place] [address] [place] CO2 [Moles/Vol] 19 mmol/L Low 22-30 [facility] Comment on above: Order Comment: Speci men Type: BLOOD SPECIMENOrdering Facility: [facility] Address: [address] [place] [address] Performed By: #### 2 4321-2, , 2776-05 ####[facility] LABORATORYCLIA [id number] [place] [address] [place] Creatinine [Mass/Vol] 0.56 mg/dL Low 0.58-0.96 [facility] Comment on above: Order Comment: Speci men Type: BLOOD SPECIMENOrdering Facility: [facility] Address: [address] [place] [address] Performed By: #### 2 4321-2, , 2776-05 ####[facility] LABORATORYCLIA [id number] [place] [address] [place] Creatinine and Glomerular filtration rate.predicted panel (S/P/Bld) 91 mL/min/1.73m??? Normal >=60 [facility] Comment on above: Order Comment: Helen rg Type: BLOOD SPECIMENOrdering Facility: [facility] Address: [address] [place] [address] Result Comment: Kaylene mated Glomerular Filtration Rate (eGFR) is calculated using the 2020 CKD-EPI creatinine equation. This equation utilizes serum creatinine, sex, and age as parameters. The creatinine assay has traceable calibration to isotope dilution-mass spectrometry. Refer to KDIGO guidelines for clinical interpretation. In patients with unstable renal function, e.g. those with acute kidney injury, the eGFR may not accurately reflect actual GFR. Performed By: #### 2 4321-2, , 2776-05 ####[facility] LABORATORYCLIA [id number] [place] [address] [place] Glucose [Mass/Vol] 213 mg/dL High 74-99 [facility] Comment on above: Order Comment: Helen rg Type: BLOOD SPECIMENOrdering Facility: [facility] Address: [address] [place] [address] Result Comment: The [place] Diabetes Association (ADA) provides guidance for cutoff values for fasting glucose and random glucose. The ADA defines fasting as no caloric intake for at least 8 hours. Fasting plasma glucose results between 100 to 125 mg/dL indicate increased risk for diabetes (prediabetes).Fasting plasma glucose results greater than or equal to 126 mg/dL meet the criteria for diagnosis of diabetes. In the absence of unequivocal hyperglycemia, results should be confirmed by repeat testing. In a patient with classic symptoms of hyperglycemia or hyperglycemic crisis, random plasma glucose results greater than or equal to 200 mg/dL meet the criteria for diagnosis of diabetes.Reference: Standards of Medical Care in Diabetes 2016, [place] Diabetes Association. Diabetes Care. 2016.39(Suppl 1). Performed By: #### 2 4321-2, , 2776-05 ####[facility] LABORATORYCLIA [id number] [place] [id number] [place] Potassium [Moles/Vol] 3.4 mmol/L Low 3.7-5.1 [facility] Comment on above: Order Comment: Speci men Type: BLOOD SPECIMENOrdering Facility: [facility] Address: [address] [place] [address] Performed By: #### 2 4321-2, , 2776-05 ####[facility] LABORATORYCLIA [id number] [address] [place] Sodium [Moles/Vol] 138 mmol/L Normal 136-144 [facility] Comment on above: Order Comment: Speci men Type: BLOOD SPECIMENOrdering Facility: [facility] Address: [address] [place] [address] Performed By: #### 2 4321-2, , 2776-05 ####[facility] LABORATORYCLIA [id number] [address] [place] [facility] Urea nitrogen [Mass/Vol] 17 mg/dL Normal 7-21 [facility] Comment on above: Order Comment: Speci men Type: BLOOD SPECIMENOrdering Facility: [facility] Address: [address] [place] [address] Performed By: #### 2 4321-2, , 2776-05 ####[facility] LABORATORYCLIA [id number] [address] [place] [facility] CBC panel Auto (Bld)on 05-13 Erythrocyte distribution width (RBC) [Ratio] 15.2 % High 11.5-15.0 [facility] Comment on above: Order Comment: Speci men Type: BLOOD SPECIMENOrdering Facility: [facility] Address: [address] [place] [address] Performed By: #### 5 8410-2 ####[facility] LABORATORYCLIA [id number] [address] Hematocrit (Bld) [Volume fraction] 24.2 % Low 36.0-46.0 [facility] Comment on above: Order Comment: Speci men Type: BLOOD SPECIMENOrdering Facility: [facility] Address: [address] [place] [address] Performed By: #### 5 8410-2 ####[facility] LABORATORYCLIA [id number] [address] Hemoglobin (Bld) [Mass/Vol] 7.6 g/dL Low 11.5-15.5 [facility] Comment on above: Order Comment: Speci men Type: BLOOD SPECIMENOrdering Facility: [facility] Address: [address] [place] [address] Performed By: #### 5 8410-2 ####[facility] LABORATORYCLIA [id number] [address] MCH (RBC) [Entitic mass] 30.2 pg Normal 26.0-34.0 [facility] Comment on above: Order Comment: Speci men Type: BLOOD SPECIMENOrdering Facility: [facility] Address: [address] [place] [address] Performed By: #### 5 8410-2 ####[facility] LABORATORYCLIA [id number] [address] MCHC (RBC) [Mass/Vol] 31.4 g/dL Normal 30.5-36.0 [facility] Comment on above: Order Comment: Speci men Type: BLOOD SPECIMENOrdering Facility: [facility] Address: [address] [place] [address] Performed By: #### 5 8410-2 ####[facility] LABORATORYCLIA [id number] [address] MCV (RBC) [Entitic vol] 96.0 fL Normal 80.0-100.0 [facility] Comment on above: Order Comment: Speci men Type: BLOOD SPECIMENOrdering Facility: [facility] Address: [address] [place] [address] Performed By: #### 5 8410-2 ####[facility]ORATORYCLIA [id number] [address] Nucleated RBC (Bld) [#/Vol] 0.03 10*3/uL High <0.01 [facility] Comment on above: Order Comment: Speci men Type: BLOOD SPECIMENOrdering Facility: [facility] Address: [address] [place] [address] Performed By: #### 5 8410-2 ####[facility] LABORATORYCLIA [id number] [place] [address] [place] Platelet mean volume (Bld) [Entitic vol] 10.3 fL Normal 9.0-12.7 [facility] Comment on above: Order Comment: Speci men Type: BLOOD SPECIMENOrdering Facility: [facility] Address: [address] [place] [address] Performed By: #### 5 8410-2 ####[facility] LABORATORYCLIA [id number] [place] [address] [place] Platelets (Bld) [#/Vol] 392 10*3/uL Normal 150-400 [facility] Comment on above: Order Comment: Speci men Type: BLOOD SPECIMENOrdering Facility: [facility] Address: [address] [place] [address] Performed By: #### 5 8410-2 ####[facility] LABORATORYCLIA [id number] [place] [address] [place] RBC (Bld) [#/Vol] 2.52 10*6/uL Low 3.90-5.20 [facility] Comment on above: Order Comment: Speci men Type: BLOOD SPECIMENOrdering Facility: [facility] Address: [address] [place] [address] Performed By: #### 5 8410-2 ####[facility] LABORATORYCLIA [id number] [place] [address] [place] WBC (Bld) [#/Vol] 8.49 10*3/uL Normal 3.70-11.00 [facility] Comment on above: Order Comment: Speci men Type: BLOOD SPECIMENOrdering Facility: [facility] Address: [address] [place] [address] Performed By: #### 5 8410-2 ####[facility] LABORATORYCLIA [id number] [place] [address] [place] Magnesium SerPl-mCncon 05-13 Magnesium [Mass/Vol] 1.9 mg/dL Normal 1.7-2.3 [facility] Comment on above: Order Comment: Speci men Type: BLOOD SPECIMENOrdering Facility: [facility] Address: [address] [place] [address] Performed By: #### 2 4321-2, , 27711-28 ####[facility] LABORATORYCLIA [id number] [place] [address] [place] Phosphate SerPl-mCncon 05-13 Phosphate [Mass/Vol] 2.2 mg/dL Low 2.7-4.8 [facility] Comment on above: Order Comment: Speci men Type: BLOOD SPECIMENOrdering Facility: [facility] Address: [address] [place] [address] Performed By: #### 2 4321-2, , 27711-28 ####[facility] LABORATORYCLIA [id number] [place] [address] [place] XR ABDOMEN 1V SUPINEon 05-13 XR ABDOMEN 1V SUPINE Normal [facility] Basic metabolic 2000 panelon 05-12-2024 Anion gap [Moles/Vol] 14 mmol/L Normal 8-15 [facility] Comment on above: Order Comment: Speci men Type: BLOOD SPECIMENOrdering Facility: [facility] Address: [address] [place] [address] Performed By: #### 2 4321-2 ####[facility] LABORATORYCLIA [id number] [place] [address] [place] Calcium [Mass/Vol] 8.2 mg/dL Low 8.5-10.2 [facility] Comment on above: Order Comment: Speci men Type: BLOOD SPECIMENOrdering Facility: [facility] Address: [address] [place] [address] Performed By: #### 2 4321-2 ####[facility] LABORATORYCLIA [id number] [address] [facility] Chloride [Moles/Vol] 105 mmol/L Normal 98-107 [facility] Comment on above: Order Comment: Speci men Type: BLOOD SPECIMENOrdering Facility: [facility] Address: [address] [place] [address] Performed By: #### 2 4321-2 ####[facility] LABORATORYCLIA [id number] [address] [place] CO2 [Moles/Vol] 17 mmol/L Low 22-30 [facility] Comment on above: Order Comment: Speci men Type: BLOOD SPECIMENOrdering Facility: [facility] Address: [address] [place] [address] Performed By: #### 2 4321-2 ####[facility] SERVICESCLIA [id number] [address] [facility] Creatinine [Mass/Vol] 0.54 mg/dL Low 0.58-0.96 [facility] Comment on above: Order Comment: Speci men Type: BLOOD SPECIMENOrdering Facility: [facility] Address: [address] [place] [address] Performed By: #### 2 4321-2 ####[facility] LABORATORYCLIA [id number] [address] Creatinine and Glomerular filtration rate.predicted panel (S/P/Bld) 92 mL/min/1.73m??? Normal >=60 [facility] Comment on above: Order Comment: Speci men Type: BLOOD SPECIMENOrdering Facility: [facility] Address: [address] [place] [address] Result Comment: Kaylene mated Glomerular Filtration Rate (eGFR) is calculated using the 2020 CKD-EPI creatinine equation. This equation utilizes serum creatinine, sex, and age as parameters. The creatinine assay has traceable calibration to isotope dilution-mass spectrometry. Refer to KDIGO guidelines for clinical interpretation. In patients with unstable renal function, e.g. those with acute kidney injury, the eGFR may not accurately reflect actual GFR. Performed By: #### 2 4321-2 ####[facility] LABORATORYCLIA [id number] [place] [address] [place] Glucose [Mass/Vol] 227 mg/dL High 74-99 [facility] Comment on above: Order Comment: Helen rg Type: BLOOD SPECIMENOrdering Facility: [facility] Address: [address] [place] [address] Result Comment: The [place] Diabetes Association (ADA) provides guidance for cutoff values for fasting glucose and random glucose. The ADA defines fasting as no caloric intake for at least 8 hours. Fasting plasma glucose results between 100 to 125 mg/dL indicate increased risk for diabetes (prediabetes).Fasting plasma glucose results greater than or equal to 126 mg/dL meet the criteria for diagnosis of diabetes. In the absence of unequivocal hyperglycemia, results should be confirmed by repeat testing. In a patient with classic symptoms of hyperglycemia or hyperglycemic crisis, random plasma glucose results greater than or equal to 200 mg/dL meet the criteria for diagnosis of diabetes.Reference: Standards of Medical Care in Diabetes 2016, [place] Diabetes [employer]. Diabetes Care. 2016.39(Suppl 1). Performed By: #### 2 4321-2 ####[facility] LABORATORYCLIA [id number] [place] [address] [place] Potassium [Moles/Vol] 3.7 mmol/L Normal 3.7-5.1 [facility] Comment on above: Order Comment: Helen rg Type: BLOOD SPECIMENOrdering Facility: [facility] Address: [address] [place] [address] Performed By: #### 2 4321-2 ####[facility] LABORATORYCLIA [id number] [place] [address] [place] Sodium [Moles/Vol] 136 mmol/L Normal 136-144 [facility] Comment on above: Order Comment: Helen rg Type: BLOOD SPECIMENOrdering Facility: [facility] Address: [address] [place] [address] Performed By: #### 2 4321-2 ####[facility] LABORATORYCLIA [id number] [place] [address] [place] Urea nitrogen [Mass/Vol] 16 mg/dL Normal 7-21 [facility] Comment on above: Order Comment: Speci men Type: BLOOD SPECIMENOrdering Facility: [facility] Address: [address] [place] [address] Performed By: #### 2 4321-2 ####[facility] LABORATORYCLIA [id number] [place] [address] [place] Anion gap [Moles/Vol] 15 mmol/L Normal 8-15 [facility] Comment on above: Order Comment: Speci men Type: BLOOD SPECIMENOrdering Facility: [facility] Address: [address] [place] [address] Performed By: #### 2 4321-2, , 2776-05 ####[facility] LABORATORYCLIA [id number] [place] [address] [place] Calcium [Mass/Vol] 7.7 mg/dL Low 8.5-10.2 [facility] Comment on above: Order Comment: Speci men Type: BLOOD SPECIMENOrdering Facility: [facility] Address: [address] [place] [address] Performed By: #### 2 1-2, , 2776-05 ####[facility] LABORATORYCLIA [id number] [place] [address] [place] Chloride [Moles/Vol] 108 mmol/L High 98-107 [facility] Comment on above: Order Comment: Speci men Type: BLOOD SPECIMENOrdering Facility: [facility] Address: [address] [place] [address] Performed By: #### 2 4321-2, , 2776-05 ####[facility] LABORATORYCLIA [id number] [place] [address] [place] CO2 [Moles/Vol] 17 mmol/L Low 22-30 [facility] Comment on above: Order Comment: Speci men Type: BLOOD SPECIMENOrdering Facility: [facility] Address: [address] [place] [address] Performed By: #### 2 4321-2, , 2776-05 ####[facility] HOSPITALIA [id number] [place] [address] [place] Creatinine [Mass/Vol] 0.62 mg/dL Normal 0.58-0.96 [facility] Comment on above: Order Comment: Helen rg Type: BLOOD SPECIMENOrdering Facility: [facility] Address: [address] [place] [address] Performed By: #### 2 4321-2, , 2776-05 ####[facility] HOSPITALIA [id number] [place] [id number] [facility] Creatinine and Glomerular filtration rate.predicted panel (S/P/Bld) 89 mL/min/1.73m??? Normal >=60 [facility] Comment on above: Order Comment: eHlen [facility] Type: BLOOD SPECIMENOrdering Facility: [facility] Address: [address] [place] [address] Result Comment: Kaylene mated Glomerular Filtration Rate (eGFR) is calculated using the 2020 CKD-EPI creatinine equation. This equation utilizes serum creatinine, sex, and age as parameters. The creatinine assay has traceable calibration to isotope dilution-mass spectrometry. Refer to KDIGO guidelines for clinical interpretation. In patients with unstable renal function, e.g. those with acute kidney injury, the eGFR may not accurately reflect actual GFR. Performed By: #### 2 4321-2, , 2776-05 ####[facility] HOSPITALIA [id number] [place] [address] [place] Glucose [Mass/Vol] 140 mg/dL High 74-99 [facility] Comment on above: Order Comment: Bernardomigel rg Type: BLOOD SPECIMENOrdering Facility: [facility] Address: [address] [place] [address] Result Comment: The [place] Diabetes Association (ADA) provides guidance for cutoff values for fasting glucose and random glucose. The ADA defines fasting as no caloric intake for at least 8 hours. Fasting plasma glucose results between 100 to 125 mg/dL indicate increased risk for diabetes (prediabetes).Fasting plasma glucose results greater than or equal to 126 mg/dL meet the criteria for diagnosis of diabetes. In the absence of unequivocal hyperglycemia, results should be confirmed by repeat testing. In a patient with classic symptoms of hyperglycemia or hyperglycemic crisis, random plasma glucose results greater than or equal to 200 mg/dL meet the criteria for diagnosis of diabetes.Reference: Standards of Medical Care in Diabetes 2016, [employer] Diabetes Association. Diabetes Care. 2016.39(Suppl 1). Performed By: #### 2 4321-2, , 2776-05 ####[facility] LABORATORYCLIA [id number] [place] [address] [place] Potassium [Moles/Vol] 3.4 mmol/L Low 3.7-5.1 [facility] Comment on above: Order Comment: Speci men Type: BLOOD SPECIMENOrdering Facility: [facility] Address: [address] [place] [address] Performed By: #### 2 4321-2, , 2776-05 ####[facility] LABORATORYCLIA [id number] [address] STATES OF [facility] Sodium [Moles/Vol] 140 mmol/L Normal 136-144 [facility] Comment on above: Order Comment: Speci men Type: BLOOD SPECIMENOrdering Facility: [facility] Address: [address] [place] [address] Performed By: #### 2 4321-2, , 2776-05 ####[facility] LABORATORYCLIA [id number] [place] [address] [place] Urea nitrogen [Mass/Vol] 16 mg/dL Normal 7-21 [facility] Comment on above: Order Comment: Speci men Type: BLOOD SPECIMENOrdering Facility: [facility] Address: [address] [place] [address] Performed By: #### 2 4321-2, , 2776-05 ####[facility] LABORATORYCLIA [id number] [address] [place] CASE MANAGEMon 05-12-2024 CASE MANAGEM Normal [facility] CBC panel Auto (Bld)on 05-12 Erythrocyte distribution width (RBC) [Ratio] 15.4 % High 11.5-15.0 [facility] Comment on above: Order Comment: Speci men Type: BLOOD SPECIMENOrdering Facility: [facility] Address: [address] [place] [address] Performed By: #### 5 8410-2 ####[facility] LABORATORYCLIA [id number] [address] OF [facility] Hematocrit (Bld) [Volume fraction] 25.1 % Low 36.0-46.0 [facility] Comment on above: Order Comment: Speci men Type: BLOOD SPECIMENOrdering Facility: [facility] Address: [address] [place] [address] Performed By: #### 5 8410-2 ####[facility] LABORATORYCLIA [id number] [address] STATES [place] [facility] Hemoglobin (Bld) [Mass/Vol] 8.0 g/dL Low 11.5-15.5 [facility] Comment on above: Order Comment: Speci men Type: BLOOD SPECIMENOrdering Facility: [facility] Address: [address] [place] [address] Performed By: #### 5 8410-2 ####[facility] LABORATORYCLIA [id number] [address] MCH (RBC) [Entitic mass] 30.4 pg Normal 26.0-34.0 [facility] Comment on above: Order Comment: Speci men Type: BLOOD SPECIMENOrdering Facility: [facility] Address: [address] [place] [address] Performed By: #### 5 8410-2 ####[facility] LABORATORYCLIA [id number] [address] [place] MCHC (RBC) [Mass/Vol] 31.9 g/dL Normal 30.5-36.0 [facility] Comment on above: Order Comment: Speci men Type: BLOOD SPECIMENOrdering Facility: [facility] Address: [address] [place] [address] Performed By: #### 5 8410-2 ####[facility] LABORATORYCLIA [id number] [address] [place] MCV (RBC) [Entitic vol] 95.4 fL Normal 80.0-100.0 [facility] Comment on above: Order Comment: Speci men Type: BLOOD SPECIMENOrdering Facility: [facility] Address: [address] [place] [address] Performed By: #### 5 8410-2 ####[facility] LABORATORYCLIA [id number] [address] [place] Platelet mean volume (Bld) [Entitic vol] 10.3 fL Normal 9.0-12.7 [facility] Comment on above: Order Comment: Speci men Type: BLOOD SPECIMENOrdering Facility: [facility] Address: [address] [place] [address] Performed By: #### 5 8410-2 ####[facility] LABORATORYCLIA [id number] [address] STATES [place] [facility] Platelets (Bld) [#/Vol] 373 10*3/uL Normal 150-400 [facility] Comment on above: Order Comment: Speci men Type: BLOOD SPECIMENOrdering Facility: [facility] Address: [address] [place] [address] Performed By: #### 5 8410-2 ####[facility] LABORATORYCLIA [id number] [address] [place] RBC (Bld) [#/Vol] 2.63 10*6/uL Low 3.90-5.20 [facility] Comment on above: Order Comment: Speci men Type: BLOOD SPECIMENOrdering Facility: [facility] Address: [address] [place] [address] Performed By: #### 5 8410-2 ####[facility] LABORATORYCLIA [id number] [address] [place] WBC (Bld) [#/Vol] 8.48 10*3/uL Normal 3.70-11.00 [facility] Comment on above: Order Comment: Speci men Type: BLOOD SPECIMENOrdering Facility: [facility] Address: [address] [place] [address] Performed By: #### 5 8410-2 ####[facility] LABORATORYCLIA [id number] [address] Erythrocyte distribution width (RBC) [Ratio] 15.4 % High 11.5-15.0 [facility] Comment on above: Order Comment: Speci men Type: BLOOD SPECIMENOrdering Facility: [facility] Address: [address] [place] [address] Performed By: #### 5 8410-2 ####[facility] LABORATORYCLIA [id number] [address] OF [facility] Hematocrit (Bld) [Volume fraction] 22.9 % Low 36.0-46.0 [facility] Comment on above: Order Comment: Speci men Type: BLOOD SPECIMENOrdering Facility: [facility] Address: [address] [place] [address] Performed By: #### 5 8410-2 ####[facility] LABORATORYCLIA [id number] [address] STATES [place] [facility] Hemoglobin (Bld) [Mass/Vol] 7.2 g/dL Low 11.5-15.5 [facility] Comment on above: Order Comment: Speci men Type: BLOOD SPECIMENOrdering Facility: [facility] Address: [address] [place] [address] Performed By: #### 5 8410-2 ####[facility] LABORATORYCLIA [id number] [address] STATES [facility] MCH (RBC) [Entitic mass] 30.4 pg Normal 26.0-34.0 [facility] Comment on above: Order Comment: Speci men Type: BLOOD SPECIMENOrdering Facility: [facility] Address: [address] [place] [address] Performed By: #### 5 8410-2 ####[facility] LABORATORYCLIA [id number] [place] [address] [place] MCHC (RBC) [Mass/Vol] 31.4 g/dL Normal 30.5-36.0 [facility] Comment on above: Order Comment: Speci men Type: BLOOD SPECIMENOrdering Facility: [facility] Address: [address] [place] [address] Performed By: #### 5 8410-2 ####[facility] LABORATORYCLIA [id number] [address] [place] MCV (RBC) [Entitic vol] 96.6 fL Normal 80.0-100.0 [facility] Comment on above: Order Comment: Speci men Type: BLOOD SPECIMENOrdering Facility: [facility] Address: [address] [place] [address] Performed By: #### 5 8410-2 ####[facility] LABORATORYCLIA [id number] [address] [place] Nucleated RBC (Bld) [#/Vol] 10*3/uL Normal <0.01 [facility] Comment on above: Order Comment: Speci men Type: BLOOD SPECIMENOrdering Facility: [facility] Address: [address] [place] [address] Performed By: #### 5 8410-2 ####[facility] LABORATORYCLIA [id number] [address] [place] Platelet mean volume (Bld) [Entitic vol] 10.6 fL Normal 9.0-12.7 [facility] Comment on above: Order Comment: Speci men Type: BLOOD SPECIMENOrdering Facility: [facility] Address: [address] [place] [address] Performed By: #### 5 8410-2 ####[facility] LABORATORYCLIA [id number] [place] [address] [place] Platelets (Bld) [#/Vol] 286 10*3/uL Normal 150-400 [facility] Comment on above: Order Comment: Speci men Type: BLOOD SPECIMENOrdering Facility: [facility] Address: [address] [place] [address] Performed By: #### 5 8410-2 ####[facility] LABORATORYCLIA [id number] [address] STATES [place] [facility] RBC (Bld) [#/Vol] 2.37 10*6/uL Low 3.90-5.20 [facility] Comment on above: Order Comment: Speci men Type: BLOOD SPECIMENOrdering Facility: [facility] Address: [address] [place] [address] Performed By: #### 5 8410-2 ####[facility]ORATORYCLIA [id number] [address] STATES [place] [facility] WBC (Bld) [#/Vol] 9.72 10*3/uL Normal 3.70-11.00 [facility] Comment on above: Order Comment: Speci men Type: BLOOD SPECIMENOrdering Facility: [facility] Address: [address] [place] [address] Performed By: #### 5 8410-2 ####[facility] LABORATORYCLIA [id number] [address] [place] CONSULTon 05-12-2024 CONSULT Normal [facility] Calcium.ionized [Moles/Vol]o n 05-12-2024 Calcium.ionized (BldV) [Mass/Vol] 1.15 mmol/L Normal 1.08-1.30 [facility] Comment on above: Order Comment: Speci men Type: BLOOD SPECIMENOrdering Facility: [facility] Address: [address] [place] [address] Performed By: #### 1 995-0 ####[facility] LABORATORYCLIA [id number] [address] Calcium.ionized adjusted to pH 7.4 (Bld) [Moles/Vol] 1.14 mmol/L Normal 1.08-1.30 [facility] Comment on above: Order Comment: Speci men Type: BLOOD SPECIMENOrdering Facility: [facility] Address: [address] [place] [address] Performed By: #### 1 995-0 ####[facility]ORATORYCLIA [id number] [place] [address] [place] ECG COMPLETEon 05-12-2024 ECG COMPLETE Normal [facility] Magnesium SerPl-mCncon 05-12 Magnesium [Mass/Vol] 1.7 mg/dL Normal 1.7-2.3 [facility] Comment on above: Order Comment: Speci men Type: BLOOD SPECIMENOrdering Facility: [facility] Address: [address] [place] [address] Performed By: #### 2 4321-2, 38105-3, 2777-1 ####[facility] LABORATORYCLIA [id number] [place] [id number] [place] NURSING PROGon 05-12-2024 NURSING PROG Normal [facility] NUTRITIONon 05-12-2024 NUTRITION Normal [facility] Phosphate SerPl-mCncon 05-12 Phosphate [Mass/Vol] 2.9 mg/dL Normal 2.7-4.8 [facility] Comment on above: Order Comment: Speci men Type: BLOOD SPECIMENOrdering Facility: [facility] Address: [address] [place] [address] Performed By: #### 2 4321-2, , 2777-1 ####[facility] LABORATORYCLIA [id number] [address] [place] THERAPY NTon 05-12-2024 THERAPY NT Normal [facility] ARTERIAL BLOOD GASESon 05-11 Base deficit (BldA) [Moles/Vol] -5 mmol/L Low -2-0 [facility] Comment on above: Order Comment: Speci men Type: ARTERIAL BLOOD SPECIMENOrdering Facility: [facility] Address: [address] [place] [address] Performed By: #### A LLBG ####[facility] LABORATORYCLIA [id number] [address] [place] Body temperature 98.6 [degF] Normal [facility] Comment on above: Order Comment: Speci men Type: ARTERIAL BLOOD SPECIMENOrdering Facility: [facility] Address: [address] [place] [address] Performed By: #### A LLBG ####[facility] LABORATORYCLIA [id number] [address] [place] Calcium.ionized (BldV) [Mass/Vol] 1.16 mmol/L Normal 1.08-1.30 [facility] Comment on above: Order Comment: Speci men Type: ARTERIAL BLOOD SPECIMENOrdering Facility: [facility] Address: [address] [place] [address] Performed By: #### A LLBG ####[facility]ORATORYCLIA [id number] [address] OF [facility] Calcium.ionized adjusted to pH 7.4 (BldA) [Moles/Vol] 1.19 mmol/L Normal 1.08-1.30 [facility] Comment on above: Order Comment: Speci men Type: ARTERIAL BLOOD SPECIMENOrdering Facility: [facility] Address: [address] [place] [address] Performed By: #### A LLBG ####[facility] LABORATORYCLIA [id number] [address] [place] Carboxyhemoglobin (BldA) [Mass fraction] 1.5 % Normal 0.0-2.0 [facility] Comment on above: Order Comment: Speci men Type: ARTERIAL BLOOD SPECIMENOrdering Facility: [facility] Address: [address] [place] [address] Result Comment: Carb oxyhemoglobin Reference Range for Smokers: 2.0-8.0% Performed By: #### A LLBG ####[facility]ORATORYCLIA [id number] [address] [place] Chloride [Moles/Vol] 107 mmol/L High 97-105 [facility] Comment on above: Order Comment: Speci men Type: ARTERIAL BLOOD SPECIMENOrdering Facility: [facility] Address: [address] [place] [address] Performed By: #### A LLBG ####[facility] LABORATORYCLIA [id number] [address] [place] CO2 (Bld) [Partial pressure] 26 mm Hg Low 36-46 [facility] Comment on above: Order Comment: Speci men Type: ARTERIAL BLOOD SPECIMENOrdering Facility: [facility] Address: [address] [place] [address] Performed By: #### A LLBG ####[facility] LABORATORYCLIA [id number] [place] [address] [place] Glucose [Mass/Vol] 178 mg/dL High 60-105 [facility] Comment on above: Order Comment: Speci men Type: ARTERIAL BLOOD SPECIMENOrdering Facility: [facility] Address: [address] [place] [address] Performed By: #### A LLBG ####[facility] LABORATORYCLIA [id number] [address] [place] HCO3 (Bld) [Moles/Vol] 18 mmol/L Low 22-26 [facility] Comment on above: Order Comment: Speci men Type: ARTERIAL BLOOD SPECIMENOrdering Facility: [facility] Address: [address] [place] [address] Performed By: #### A LLBG ####[facility] LABORATORYCLIA [id number] [address] [place] Hematocrit (Bld) [Volume fraction] 25.7 % Low 36.0-46.0 [facility] Comment on above: Order Comment: Speci men Type: ARTERIAL BLOOD SPECIMENOrdering Facility: [facility] Address: [address] [place] [address] Performed By: #### A LLBG ####[facility] LABORATORYCLIA [id number] [place] [address] [place] Hemoglobin (Bld) [Mass/Vol] 8.3 g/dL Low 11.5-15.5 [facility] Comment on above: Order Comment: Speci men Type: ARTERIAL BLOOD SPECIMENOrdering Facility: [facility] Address: [address] [place] [address] Performed By: #### A LLBG ####[facility] LABORATORYCLIA [id number] [address] [place] Lactate [Moles/Vol] 1.0 mmol/L Normal 0.5-2.2 [facility] Comment on above: Order Comment: Speci men Type: ARTERIAL BLOOD SPECIMENOrdering Facility: [facility] Address: [address] [place] [address] Performed By: #### A LLBG ####[facility] LABORATORYCLIA [id number] [address] [place] Methemoglobin (Bld) [Mass fraction] 1.1 % Normal 0.0-1.5 [facility] Comment on above: Order Comment: Speci men Type: ARTERIAL BLOOD SPECIMENOrdering Facility: [facility] Address: [address] [place] [address] Performed By: #### A LLBG ####[facility] LABORATORYCLIA [id number] [address] O2 THERAPY RA=Room Air Normal [facility] Comment on above: Order Comment: Speci men Type: ARTERIAL BLOOD SPECIMENOrdering Facility: [facility] Address: [address] [place] [address] Performed By: #### A LLBG ####[facility] LABORATORYCLIA [id number] [address] [place] Oxygen (Bld) [Partial pressure] 100 mm Hg High 85-95 [facility] Comment on above: Order Comment: Speci men Type: ARTERIAL BLOOD SPECIMENOrdering Facility: [facility] Address: [address] [place] [address] Performed By: #### A LLBG ####[facility] LABORATORYCLIA [id number] [address] [place] Oxyhemoglobin (BldA) [Mass fraction] 95 % Normal 95-98 [facility] Comment on above: Order Comment: Speci men Type: ARTERIAL BLOOD SPECIMENOrdering Facility: [facility] Address: [address] [place] [address] Performed By: #### A LLBG ####[facility]ORATORYCLIA [id number] [place] [address] [place] pH (Bld) 7.46 [pH] High 7.35-7.45 [facility] Comment on above: Order Comment: Speci men Type: ARTERIAL BLOOD SPECIMENOrdering Facility: [facility] Address: [address] [place] [address] Performed By: #### A LLBG ####[facility] LABORATORYCLIA [id number] [address] PO2 / FIO2 RATIO 476 mmHg Normal >300 [facility] Comment on above: Order Comment: Speci men Type: ARTERIAL BLOOD SPECIMENOrdering Facility: [facility] Address: [address] [place] [address] Performed By: #### A LLBG ####[facility] LABORATORYCLIA [id number] [address] [place] Potassium [Moles/Vol] 3.9 mmol/L Normal 3.5-5.0 [facility] Comment on above: Order Comment: Speci men Type: ARTERIAL BLOOD SPECIMENOrdering Facility: [facility] Address: [address] [place] [address] Performed By: #### A LLBG ####[facility] LABORATORYCLIA [id number] [address] [place] Sodium [Moles/Vol] 136 mmol/L Normal 136-144 [facility] Comment on above: Order Comment: Speci men Type: ARTERIAL BLOOD SPECIMENOrdering Facility: [facility] Address: [address] [place] [address] Performed By: #### A LLBG ####[facility]ORATORYCLIA [id number] [place] [address] [place] Basic metabolic 2000 panelon 05-11-2024 Anion gap [Moles/Vol] 13 mmol/L Normal 8-15 [facility] Comment on above: Order Comment: Speci men Type: BLOOD SPECIMENOrdering Facility: [facility] Address: [address] [place] [address] Performed By: #### 2 4321-2, , 2776-05 ####[facility] LABORATORYCLIA [id number] [place] [address] [place] Calcium [Mass/Vol] 8.3 mg/dL Low 8.5-10.2 [facility] Comment on above: Order Comment: Speci men Type: BLOOD SPECIMENOrdering Facility: [facility] Address: [address] [place] [address] Performed By: #### 2 4321-2, , 2776-05 ####[facility] LABORATORYCLIA [id number] [place] [address] [place] Chloride [Moles/Vol] 104 mmol/L Normal 98-107 [facility] Comment on above: Order Comment: Speci men Type: BLOOD SPECIMENOrdering Facility: [facility] Address: [address] [place] [address] Performed By: #### 2 4320-2, , 2776-05 ####[facility] LABORATORYCLIA [id number] [place] [id number] [place] CO2 [Moles/Vol] 21 mmol/L Low 22-30 [facility] Comment on above: Order Comment: Speci men Type: BLOOD SPECIMENOrdering Facility: [facility] Address: [address] [place] [address] Performed By: #### 2 4321-2, , 2776-05 ####[facility] LABORATORYCLIA [id number] [place] [id number] [place] Creatinine [Mass/Vol] 0.54 mg/dL Low 0.58-0.96 [facility] Comment on above: Order Comment: Speci men Type: BLOOD SPECIMENOrdering Facility: [facility] Address: [address] [place] [address] Performed By: #### 2 4321-2, , 2776-05 ####[facility] LABORATORYCLIA [id number] [place] [id number] [place] Creatinine and Glomerular filtration rate.predicted panel (S/P/Bld) 92 mL/min/1.73m??? Normal >=60 [facility] Comment on above: Order Comment: Helen rg Type: BLOOD SPECIMENOrdering Facility: [facility] Address: [address] [place] [address] Result Comment: Kaylene mated Glomerular Filtration Rate (eGFR) is calculated using the 2020 CKD-EPI creatinine equation. This equation utilizes serum creatinine, sex, and age as parameters. The creatinine assay has traceable calibration to isotope dilution-mass spectrometry. Refer to KDIGO guidelines for clinical interpretation. In patients with unstable renal function, e.g. those with acute kidney injury, the eGFR may not accurately reflect actual GFR. Performed By: #### 2 4321-2, , 2776-05 ####[facility] LABORATORYCLIA [id number] [place] [address] [place] Glucose [Mass/Vol] 134 mg/dL High 74-99 [facility] Comment on above: Order Comment: Helen rg Type: BLOOD SPECIMENOrdering Facility: [facility] Address: [address] [place] [address] Result Comment: The [place] Diabetes [employer] (ADA) provides guidance for cutoff values for fasting glucose and random glucose. The ADA defines fasting as no caloric intake for at least 8 hours. Fasting plasma glucose results between 100 to 125 mg/dL indicate increased risk for diabetes (prediabetes).Fasting plasma glucose results greater than or equal to 126 mg/dL meet the criteria for diagnosis of diabetes. In the absence of unequivocal hyperglycemia, results should be confirmed by repeat testing. In a patient with classic symptoms of hyperglycemia or hyperglycemic crisis, random plasma glucose results greater than or equal to 200 mg/dL meet the criteria for diagnosis of diabetes.Reference: Standards of Medical Care in Diabetes 2016, [employer]. Diabetes Care. 2016.39(Suppl 1). Performed By: #### 2 4321-2, , 2776-05 ####[facility] LABORATORYCLIA [id number] [place] [id number] [place] Potassium [Moles/Vol] 3.8 mmol/L Normal 3.7-5.1 [facility] Comment on above: Order Comment: Speci men Type: BLOOD SPECIMENOrdering Facility: [facility] Address: [address] [place] [address] Performed By: #### 2 4321-2, , 2776-05 ####[facility] LABORATORYCLIA [id number] [place] [address] [place] Sodium [Moles/Vol] 138 mmol/L Normal 136-144 [facility] Comment on above: Order Comment: Speci men Type: BLOOD SPECIMENOrdering Facility: [facility] Address: [address] [place] [address] Performed By: #### 2 4321-2, , 2776-05 ####[facility] LABORATORYCLIA [id number] [address] [place] Urea nitrogen [Mass/Vol] 9 mg/dL Normal 7-21 [facility] Comment on above: Order Comment: Speci men Type: BLOOD SPECIMENOrdering Facility: [facility] Address: [address] [place] [address] Performed By: #### 2 4321-2, , 2776-05 ####[facility] LABORATORYCLIA [id number] [address] [place] CASE MANAGEMon 05-11-2024 CASE MANAGEM Normal [facility] CBC panel Auto (Bld)on 05-11 Erythrocyte distribution width (RBC) [Ratio] 15.2 % High 11.5-15.0 [facility] Comment on above: Order Comment: Speci men Type: BLOOD SPECIMENOrdering Facility: [facility] Address: [address] [place] [address] Performed By: #### 5 8410-2 ####[facility] LABORATORYCLIA [id number] [address] [place] Hematocrit (Bld) [Volume fraction] 26.1 % Low 36.0-46.0 [facility] Comment on above: Order Comment: Speci men Type: BLOOD SPECIMENOrdering Facility: [facility] Address: [facility] [place] [address] Performed By: #### 5 8410-2 ####[facility] LABORATORYCLIA [id number] [address] Hemoglobin (Bld) [Mass/Vol] 8.5 g/dL Low 11.5-15.5 [facility] Comment on above: Order Comment: Speci men Type: BLOOD SPECIMENOrdering Facility: [facility] Address: [address] [place] [address] Performed By: #### 5 8410-2 ####[facility] LABORATORYCLIA [id number] [address] MCH (RBC) [Entitic mass] 30.1 pg Normal 26.0-34.0 [facility] Comment on above: Order Comment: Speci men Type: BLOOD SPECIMENOrdering Facility: [facility] Address: [address] [place] [address] Performed By: #### 5 8410-2 ####[facility] LABORATORYCLIA [id number] [address] MCHC (RBC) [Mass/Vol] 32.6 g/dL Normal 30.5-36.0 [facility] Comment on above: Order Comment: Speci men Type: BLOOD SPECIMENOrdering Facility: [facility] Address: [address] [place] [address] Performed By: #### 5 8410-2 ####[facility] LABORATORYCLIA [id number] [address] MCV (RBC) [Entitic vol] 92.6 fL Normal 80.0-100.0 [facility] Comment on above: Order Comment: Speci men Type: BLOOD SPECIMENOrdering Facility: [facility] Address: [address] [place] [address] Performed By: #### 5 8410-2 ####[facility] LABORATORYCLIA [id number] [address] Nucleated RBC (Bld) [#/Vol] 0.03 10*3/uL High <0.01 [facility] Comment on above: Order Comment: Speci men Type: BLOOD SPECIMENOrdering Facility: [facility] Address: [address] [place] [address] Performed By: #### 5 8410-2 ####[facility] LABORATORYCLIA [id number] [address] [place] Platelet mean volume (Bld) [Entitic vol] 10.8 fL Normal 9.0-12.7 [facility] Comment on above: Order Comment: Speci men Type: BLOOD SPECIMENOrdering Facility: [facility] Address: [address] [place] [address] Performed By: #### 5 8410-2 ####[facility] LABORATORYCLIA [id number] [address] [place] Platelets (Bld) [#/Vol] 316 10*3/uL Normal 150-400 [facility] Comment on above: Order Comment: Speci men Type: BLOOD SPECIMENOrdering Facility: [facility] Address: [address] [place] [address] Performed By: #### 5 8410-2 ####[facility] LABORATORYCLIA [id number] [address] [place] RBC (Bld) [#/Vol] 2.82 10*6/uL Low 3.90-5.20 [facility] Comment on above: Order Comment: Speci men Type: BLOOD SPECIMENOrdering Facility: [facility] Address: [address] [place] [address] Performed By: #### 5 8410-2 ####[facility] LABORATORYCLIA [id number] [address] [place] WBC (Bld) [#/Vol] 12.73 10*3/uL High 3.70-11.00 [facility] Comment on above: Order Comment: Speci men Type: BLOOD SPECIMENOrdering Facility: [facility] Address: [address] [place] [address] Performed By: #### 5 8410-2 ####[facility] LABORATORYCLIA [id number] [place] [address] [place] [facility] Calcium.ionized [Moles/Vol]o n 05-11-2024 Calcium.ionized (BldV) [Mass/Vol] 1.11 mmol/L Normal 1.08-1.30 [facility] Comment on above: Order Comment: Speci men Type: BLOOD SPECIMENOrdering Facility: [facility] Address: [address] [place] [address] Performed By: #### 1 995-0 ####[facility] LABORATORYCLIA [id number] [address] OF [facility] Calcium.ionized adjusted to pH 7.4 (Bld) [Moles/Vol] 1.13 mmol/L Normal 1.08-1.30 [facility] Comment on above: Order Comment: Speci men Type: BLOOD SPECIMENOrdering Facility: [facility] Address: [address] [place] [address] Performed By: #### 1 995-0 ####[facility] LABORATORYCLIA [id number] [address] [place] Gas and Carbon monoxide pane l (BldV)on 05-11-2024 BASE DEFICIT, VENOUS >-1 Normal -2-0 [facility] Comment on above: Order Comment: Speci men Type: VENOUS BLOOD SPECIMENOrdering Facility: [facility] Address: [address] [place] [address] Performed By: #### 2 4344-4 ####[facility] LABORATORYCLIA [id number] [address] [place] Body temperature 97.7 [degF] Normal [facility] Comment on above: Order Comment: Speci men Type: VENOUS BLOOD SPECIMENOrdering Facility: [facility] Address: [address] [place] [address] Performed By: #### 2 4344-4 ####[facility] LABORATORYCLIA [id number] [place] [address] [place] Calcium.ionized (BldV) [Mass/Vol] 1.13 mmol/L Normal 1.08-1.30 [facility] Comment on above: Order Comment: Speci men Type: VENOUS BLOOD SPECIMENOrdering Facility: [facility] Address: [address] [place] [address] Performed By: #### 2 4344-4 ####[facility] LABORATORYCLIA [id number] [place] [address] [place] Calcium.ionized adjusted to pH 7.4 (BldA) [Moles/Vol] 1.16 mmol/L Normal 1.08-1.30 [facility] Comment on above: Order Comment: Speci men Type: VENOUS BLOOD SPECIMENOrdering Facility: [facility] Address: [address] [place] [address] Performed By: #### 2 4344-4 ####[facility] LABORATORYCLIA [id number] [address] [place] Carboxyhemoglobin (BldV) [Mass fraction] 1.2 % Normal 0.0-2.0 [facility] Comment on above: Order Comment: Speci men Type: VENOUS BLOOD SPECIMENOrdering Facility: [facility] Address: [address] [place] [address] Result Comment: Carb oxyhemoglobin Reference Range for Smokers: 2.0-8.0% Performed By: #### 2 4344-4 ####[facility] LABORATORYCLIA [id number] [place] [address] [place] Chloride [Moles/Vol] 106 mmol/L High 97-105 [facility] Comment on above: Order Comment: Speci men Type: VENOUS BLOOD SPECIMENOrdering Facility: [facility] Address: [address] [place] [address] Performed By: #### 2 4344-4 ####[facility] LABORATORYCLIA [id number] [place] [address] [place] CO2 (BldV) [Partial pressure] 34 mm[Hg] Low 42-55 [facility] Comment on above: Order Comment: Speci men Type: VENOUS BLOOD SPECIMENOrdering Facility: [facility] Address: [address] [place] [address] Performed By: #### 2 4344-4 ####[facility] LABORATORYCLIA [id number] [address] CO2 adjusted to patient's actual temperature (BldV) [Partial pressure] 33 mmHg Low 42-55 [facility] Comment on above: Order Comment: Speci men Type: VENOUS BLOOD SPECIMENOrdering Facility: [facility] Address: [address] [place] [address] Performed By: #### 2 4344-4 ####[facility] LABORATORYCLIA [id number] [address] [place] [facility] Glucose [Mass/Vol] 158 mg/dL High 60-105 [facility] Comment on above: Order Comment: Speci men Type: VENOUS BLOOD SPECIMENOrdering Facility: [facility] Address: [address] [place] [address] Performed By: #### 2 4344-4 ####[facility] LABORATORYCLIA [id number] [address] [place] HCO3 (Bld) [Moles/Vol] 23 mmol/L Low 24-28 [facility] Comment on above: Order Comment: Speci men Type: VENOUS BLOOD SPECIMENOrdering Facility: [facility] Address: [address] [place] [address] Performed By: #### 2 4344-4 ####[facility] LABORATORYCLIA [id number] [address] Hematocrit (Bld) [Volume fraction] 26.6 % Low 36.0-46.0 [facility] Comment on above: Order Comment: Speci men Type: VENOUS BLOOD SPECIMENOrdering Facility: [facility] Address: [address] [place] [address] Performed By: #### 2 4344-4 ####[facility] LABORATORYCLIA [id number] [address] [place] Hemoglobin (Bld) [Mass/Vol] 8.6 g/dL Low 11.5-15.5 [facility] Comment on above: Order Comment: Speci men Type: VENOUS BLOOD SPECIMENOrdering Facility: [facility] Address: [address] [place] [address] Performed By: #### 2 4344-4 ####[facility] LABORATORYCLIA [id number] [address] [place] Lactate [Moles/Vol] 1.0 mmol/L Normal 0.5-2.2 [facility] Comment on above: Order Comment: Speci men Type: VENOUS BLOOD SPECIMENOrdering Facility: [facility] Address: [address] [place] [address] Performed By: #### 2 4344-4 ####[facility] LABORATORYCLIA [id number] [address] Methemoglobin (Bld) [Mass fraction] 0.4 % Normal 0.0-1.5 [facility] Comment on above: Order Comment: Speci men Type: VENOUS BLOOD SPECIMENOrdering Facility: [facility] Address: [address] [place] [address] Performed By: #### 2 4344-4 ####[facility] LABORATORYCLIA [id number] [address] O2 THERAPY RA=Room Air Normal [facility] Comment on above: Order Comment: Speci men Type: VENOUS BLOOD SPECIMENOrdering Facility: [facility] Address: [address] [place] [address] Performed By: #### 2 4344-4 ####[facility] LABORATORYCLIA [id number] [address] [place] Oxygen (BldV) [Partial pressure] 76 mm[Hg] High 35-45 [facility] Comment on above: Order Comment: Speci men Type: VENOUS BLOOD SPECIMENOrdering Facility: [facility] Address: [address] [place] [address] Performed By: #### 2 4344-4 ####[facility] LABORATORYCLIA [id number] [address] [facility] Oxygen adjusted to patient's actual temperature (BldV) [Partial pressure] 74 mmHg High 35-45 [facility] Comment on above: Order Comment: Speci men Type: VENOUS BLOOD SPECIMENOrdering Facility: [facility] Address: [address] [place] [address] Performed By: #### 2 4344-4 ####[facility]ORATORYCLIA [id number] [address] [place] Oxygen saturation in Venous blood 93 % High 60-85 [facility] Comment on above: Order Comment: Speci men Type: VENOUS BLOOD SPECIMENOrdering Facility: [facility] Address: [address] [place] [address] Performed By: #### 2 4344-4 ####[facility]ORATORYCLIA [id number] [address] Oxyhemoglobin (BldV) [Mass fraction] 92 % High 60-85 [facility] Comment on above: Order Comment: Speci men Type: VENOUS BLOOD SPECIMENOrdering Facility: [facility] Address: [address] [place] [address] Performed By: #### 2 4344-4 ####[facility]ORATORYCLIA [id number] [address] [place] pH (BldV) 7.45 [pH] High 7.32-7.42 [facility] Comment on above: Order Comment: Speci men Type: VENOUS BLOOD SPECIMENOrdering Facility: [facility] Address: [address] [place] [address] Performed By: #### 2 4344-4 ####[facility]ORATORYCLIA [id number] [address] [place] pH adjusted to patient's actual temperature (BldV) 7.46 High 7.32-7.42 [facility] Comment on above: Order Comment: Speci men Type: VENOUS BLOOD SPECIMENOrdering Facility: [facility] Address: [address] [place] [address] Performed By: #### 2 4344-4 ####[facility]ORATORYCLIA [id number] [place] [id number] [place] Potassium [Moles/Vol] 3.8 mmol/L Normal 3.5-5.0 [facility] Comment on above: Order Comment: Speci men Type: VENOUS BLOOD SPECIMENOrdering Facility: [facility] Address: [address] [place] [address] Performed By: #### 2 4344-4 ####[facility] LABORATORYCLIA [id number] [place] [id number] [place] Sodium [Moles/Vol] 136 mmol/L Normal 136-144 [facility] Comment on above: Order Comment: Speci men Type: VENOUS BLOOD SPECIMENOrdering Facility: [facility] Address: [address] [place] [address] Performed By: #### 2 4344-4 ####[facility] LABORATORYCLIA [id number] [address] [place] [facility] Magnesium [Mass/Vol] 1.8 mg/dL Normal 1.7-2.3 [facility] Comment on above: Order Comment: Speci men Type: BLOOD SPECIMENOrdering Facility: [facility] Address: [address] [place] [address] Performed By: #### 2 4321-2, , 7-1 ####[facility] LABORATORYCLIA [id number] [place] [address] [place] NURSING PROGon 05-11-2024 NURSING PROG Normal [facility] Phosphate SerPl-mCncon 05-11 Phosphate [Mass/Vol] 2.6 mg/dL Low 2.7-4.8 [facility] Comment on above: Order Comment: Speci men Type: BLOOD SPECIMENOrdering Facility: [facility] Address: [address] [place] [address] Performed By: #### 2 4321-2, 74370-0, 2777-1 ####[facility] LABORATORYCLIA [id number] [place] [address] [place] THERAPY NTon 05-11-2024 THERAPY NT Normal [facility] XR ABDOMEN 1V SUPINEon 05-11 XR ABDOMEN 1V SUPINE Normal [facility] XR CHEST 1V FRONTALon 2023 XR CHEST 1V FRONTAL Normal [facility] Basic metabolic 2000 panelon 05-10-2024 Anion gap [Moles/Vol] 9 mmol/L Normal 8-15 [facility] Comment on above: Order Comment: Speci men Type: BLOOD SPECIMENOrdering Facility: [facility] Address: [address] [place] [address] Performed By: #### 2 4321-2, , 2776-05 ####[facility] LABORATORYCLIA [id number] [place] [address] [place] Calcium [Mass/Vol] 8.2 mg/dL Low 8.5-10.2 [facility] Comment on above: Order Comment: Speci men Type: BLOOD SPECIMENOrdering Facility: [facility] Address: [address] [place] [address] Performed By: #### 2 4321-2, , 2776-05 ####[facility] LABORATORYCLIA [id number] [place] [address] [place] Chloride [Moles/Vol] 103 mmol/L Normal 98-107 [facility] Comment on above: Order Comment: Speci men Type: BLOOD SPECIMENOrdering Facility: [facility] Address: [address] [place] [address] Performed By: #### 2 4321-2, , 2776-05 ####[facility] LABORATORYCLIA [id number] [place] [id number] [place] CO2 [Moles/Vol] 22 mmol/L Normal 22-30 [facility] Comment on above: Order Comment: Speci men Type: BLOOD SPECIMENOrdering Facility: [facility] Address: [address] [place] [address] Performed By: #### 2 4321-2, , 2776-05 ####[facility] HOSPITALIA [id number] [place] [address] [place] [facility] Creatinine [Mass/Vol] 0.49 mg/dL Low 0.58-0.96 [facility] Comment on above: Order Comment: Helen rg Type: BLOOD SPECIMENOrdering Facility: [facility] Address: [address] [place] [address] Performed By: #### 2 4321-2, , 2776-05 ####[facility] HOSPITALIA [id number] [place] [address] [facility] Creatinine and Glomerular filtration rate.predicted panel (S/P/Bld) 94 mL/min/1.73m??? Normal >=60 [facility] Comment on above: Order Comment: Helen [facility] Type: BLOOD SPECIMENOrdering Facility: [facility] Address: [address] [place] [address] Result Comment: Kaylene mated Glomerular Filtration Rate (eGFR) is calculated using the 2020 CKD-EPI creatinine equation. This equation utilizes serum creatinine, sex, and age as parameters. The creatinine assay has traceable calibration to isotope dilution-mass spectrometry. Refer to KDIGO guidelines for clinical interpretation. In patients with unstable renal function, e.g. those with acute kidney injury, the eGFR may not accurately reflect actual GFR. Performed By: #### 2 4321-2, , 2776-05 ####[facility] HOSPITALIA [id number] [place] [id number] [place] [facility] Glucose [Mass/Vol] 143 mg/dL High 74-99 [facility] Comment on above: Order Comment: Helen [facility] Type: BLOOD SPECIMENOrdering Facility: [facility] Address: [address] [place] [address] Result Comment: The [place] Diabetes [employer] (ADA) provides guidance for cutoff values for fasting glucose and random glucose. The ADA defines fasting as no caloric intake for at least 8 hours. Fasting plasma glucose results between 100 to 125 mg/dL indicate increased risk for diabetes (prediabetes).Fasting plasma glucose results greater than or equal to 126 mg/dL meet the criteria for diagnosis of diabetes. In the absence of unequivocal hyperglycemia, results should be confirmed by repeat testing. In a patient with classic symptoms of hyperglycemia or hyperglycemic crisis, random plasma glucose results greater than or equal to 200 mg/dL meet the criteria for diagnosis of diabetes.Reference: Standards of Medical Care in Diabetes 2016, [employer] Association. Diabetes Care. 2016.39(Suppl 1). Performed By: #### 2 4321-2, , 2776-05 ####[facility] LABORATORYCLIA [id number] [place] [address] [place] Potassium [Moles/Vol] 4.2 mmol/L Normal 3.7-5.1 [facility] Comment on above: Order Comment: Helen rg Type: BLOOD SPECIMENOrdering Facility: [facility] Address: [address] [place] [address] Performed By: #### 2 4321-2, , 2776-05 ####[facility] LABORATORYCLIA [id number] [address] [place] [facility] Sodium [Moles/Vol] 134 mmol/L Low 136-144 [facility] Comment on above: Order Comment: Helen rg Type: BLOOD SPECIMENOrdering Facility: [facility] Address: [address] [place] [address] Performed By: #### 2 4321-2, , 2776-05 ####[facility] LABORATORYCLIA [id number] [place] [address] [place] Urea nitrogen [Mass/Vol] 12 mg/dL Normal 7-21 [facility] Comment on above: Order Comment: Helen rg Type: BLOOD SPECIMENOrdering Facility: [facility] Address: [address] [place] [address] Performed By: #### 2 4321-2, , 2776-05 ####[facility] LABORATORYCLIA [id number] [place] [id number] [place] CASE MANAGEMon 05-10-2024 CASE MANAGEM Normal [facility] CBC panel Auto (Bld)on 05-10 Erythrocyte distribution width (RBC) [Ratio] 15.6 % High 11.5-15.0 [facility] Comment on above: Order Comment: Speci men Type: BLOOD SPECIMENOrdering Facility: [facility] Address: [address] [place] [address] Performed By: #### 5 8410-2 ####[facility] LABORATORYCLIA [id number] [address] OF [facility] Hematocrit (Bld) [Volume fraction] 24.7 % Low 36.0-46.0 [facility] Comment on above: Order Comment: Speci men Type: BLOOD SPECIMENOrdering Facility: [facility] Address: [address] [place] [address] Performed By: #### 5 8410-2 ####[facility] LABORATORYCLIA [id number] [address] STATES [place] [facility] Hemoglobin (Bld) [Mass/Vol] 7.8 g/dL Low 11.5-15.5 [facility] Comment on above: Order Comment: Speci men Type: BLOOD SPECIMENOrdering Facility: [facility] Address: [address] [place] [address] Performed By: #### 5 8410-2 ####[facility] LABORATORYCLIA [id number] [address] [place] MCH (RBC) [Entitic mass] 30.0 pg Normal 26.0-34.0 [facility] Comment on above: Order Comment: Speci men Type: BLOOD SPECIMENOrdering Facility: [facility] Address: [address] [place] [address] Performed By: #### 5 8410-2 ####[facility] LABORATORYCLIA [id number] [address] [place] MCHC (RBC) [Mass/Vol] 31.6 g/dL Normal 30.5-36.0 [facility] Comment on above: Order Comment: Speci men Type: BLOOD SPECIMENOrdering Facility: [facility] Address: [address] [place] [address] Performed By: #### 5 8410-2 ####[facility] LABORATORYCLIA [id number] [address] [place] [facility] MCV (RBC) [Entitic vol] 95.0 fL Normal 80.0-100.0 [facility] Comment on above: Order Comment: Speci men Type: BLOOD SPECIMENOrdering Facility: [facility] Address: [address] [place] [address] Performed By: #### 5 8410-2 ####[facility] LABORATORYCLIA [id number] [address] Nucleated RBC (Bld) [#/Vol] 0.02 10*3/uL High <0.01 [facility] Comment on above: Order Comment: Speci men Type: BLOOD SPECIMENOrdering Facility: [facility] Address: [address] [place] [address] Performed By: #### 5 8410-2 ####[facility] LABORATORYCLIA [id number] [address] Platelet mean volume (Bld) [Entitic vol] 10.8 fL Normal 9.0-12.7 [facility] Comment on above: Order Comment: Speci men Type: BLOOD SPECIMENOrdering Facility: [facility] Address: [address] [place] [address] Performed By: #### 5 8410-2 ####[facility] LABORATORYCLIA [id number] [address] Platelets (Bld) [#/Vol] 245 10*3/uL Normal 150-400 [facility] Comment on above: Order Comment: Speci men Type: BLOOD SPECIMENOrdering Facility: [facility] Address: [address] [place] [address] Performed By: #### 5 8410-2 ####[facility] LABORATORYCLIA [id number] [address] [place] RBC (Bld) [#/Vol] 2.60 10*6/uL Low 3.90-5.20 [facility] Comment on above: Order Comment: Speci men Type: BLOOD SPECIMENOrdering Facility: [facility] Address: [address] [place] [address] Performed By: #### 5 8410-2 ####[facility] LABORATORYCLIA [id number] [address] [place] WBC (Bld) [#/Vol] 10.48 10*3/uL Normal 3.70-11.00 [facility] Comment on above: Order Comment: Speci men Type: BLOOD SPECIMENOrdering Facility: [facility] Address: [address] [place] [address] Performed By: #### 5 8410-2 ####[facility] LABORATORYCLIA [id number] [address] [place] [address] BRAIN WO IVCONon 05-10-[address] BRAIN WO IVCON Normal [facility] Calcium.ionized [Moles/Vol]o n 05-10-2024 Calcium.ionized (BldV) [Mass/Vol] 1.13 mmol/L Normal 1.08-1.30 [facility] Comment on above: Order Comment: Speci men Type: BLOOD SPECIMENOrdering Facility: [facility] Address: [address] [place] [address] Performed By: #### 1 995-0 ####[facility] LABORATORYCLIA [id number] [address] [place] Calcium.ionized adjusted to pH 7.4 (Bld) [Moles/Vol] 1.14 mmol/L Normal 1.08-1.30 [facility] Comment on above: Order Comment: Speci men Type: BLOOD SPECIMENOrdering Facility: [facility] Address: [address] [place] [address] Performed By: #### 1 995-0 ####[facility] LABORATORYCLIA [id number] [address] [place] Magnesium SerPl-mCncon 05-10 Magnesium [Mass/Vol] 1.9 mg/dL Normal 1.7-2.3 [facility] Comment on above: Order Comment: Speci men Type: BLOOD SPECIMENOrdering Facility: [facility] Address: [address] [place] [address] Performed By: #### 2 4321-2, , 2776-05 ####[facility]ORATORYCLIA [id number] [place] [address] [facility] NURSING PROGon 05-10-2024 NURSING PROG Normal [facility] Phosphate SerPl-mCncon 05-10 Phosphate [Mass/Vol] 2.8 mg/dL Normal 2.7-4.8 [facility] Comment on above: Order Comment: Speci men Type: BLOOD SPECIMENOrdering Facility: [facility] Address: [address] [place] [address] Performed By: #### 2 4321-2, , 2776-05 ####[facility] LABORATORYCLIA [id number] [address] THERAPY NTon 05-10-2024 THERAPY NT Normal [facility] THERAPY NT Normal [facility] THERAPY NT Normal [facility] Basic metabolic 2000 panelon 05-09-2024 Anion gap [Moles/Vol] 12 mmol/L Normal 8-15 [facility] Comment on above: Order Comment: Speci men Type: BLOOD SPECIMENOrdering Facility: [facility] Address: [address] [place] [address] Performed By: #### 2 4321-2, , 2776-05 ####[facility]ORATORYCLIA [id number] [place] [address] [place] Calcium [Mass/Vol] 7.9 mg/dL Low 8.5-10.2 [facility] Comment on above: Order Comment: Speci men Type: BLOOD SPECIMENOrdering Facility: [facility] Address: [address] [place], [place] [address] Performed By: #### 2 4321-2, , 2776-05 ####[facility]ORATORYCLIA [id number] [address] [place] Chloride [Moles/Vol] 103 mmol/L Normal 98-107 [facility] Comment on above: Order Comment: Speci men Type: BLOOD SPECIMENOrdering Facility: [facility] Address: [address] [place] [address] Performed By: #### 2 4321-2, , 2776-05 ####[facility] LABORATORYCLIA [id number] [place] [id number] [place] CO2 [Moles/Vol] 21 mmol/L Low 22-30 [facility] Comment on above: Order Comment: Speci men Type: BLOOD SPECIMENOrdering Facility: [facility] Address: [address] [place] [address] Performed By: #### 2 4321-2, , 2776-05 ####[facility] LABORATORYCLIA [id number] [address] [facility] Creatinine [Mass/Vol] 0.56 mg/dL Low 0.58-0.96 [facility] Comment on above: Order Comment: Speci men Type: BLOOD SPECIMENOrdering Facility: [facility] Address: [address] [place] [address] Performed By: #### 2 4321-2, , 2776-05 ####[facility] LABORATORYCLIA [id number] [address] Creatinine and Glomerular filtration rate.predicted panel (S/P/Bld) 91 mL/min/1.73m??? Normal >=60 [facility] Comment on above: Order Comment: Speci men Type: BLOOD SPECIMENOrdering Facility: [facility] Address: [address] [place] [address] Result Comment: Kaylene mated Glomerular Filtration Rate (eGFR) is calculated using the 2020 CKD-EPI creatinine equation. This equation utilizes serum creatinine, sex, and age as parameters. The creatinine assay has traceable calibration to isotope dilution-mass spectrometry. Refer to KDIGO guidelines for clinical interpretation. In patients with unstable renal function, e.g. those with acute kidney injury, the eGFR may not accurately reflect actual GFR. Performed By: #### 2 4321-2, , 2776-05 ####[facility] LABORATORYCLIA [id number] [place] [id number] [place] Glucose [Mass/Vol] 150 mg/dL High 74-99 [facility] Comment on above: Order Comment: Speci men Type: BLOOD SPECIMENOrdering Facility: [facility] Address: [address] [place] [address] Result Comment: The [place] Diabetes Association (ADA) provides guidance for cutoff values for fasting glucose and random glucose. The ADA defines fasting as no caloric intake for at least 8 hours. Fasting plasma glucose results between 100 to 125 mg/dL indicate increased risk for diabetes (prediabetes).Fasting plasma glucose results greater than or equal to 126 mg/dL meet the criteria for diagnosis of diabetes. In the absence of unequivocal hyperglycemia, results should be confirmed by repeat testing. In a patient with classic symptoms of hyperglycemia or hyperglycemic crisis, random plasma glucose results greater than or equal to 200 mg/dL meet the criteria for diagnosis of diabetes.Reference: Standards of Medical Care in Diabetes 2016, [employer] Diabetes [employer]. Diabetes Care. 2016.39(Suppl 1). Performed By: #### 2 4321-2, , 2776-05 ####[facility] LABORATORYCLIA [id number] [place] [address] [place] Potassium [Moles/Vol] 4.3 mmol/L Normal 3.7-5.1 [facility] Comment on above: Order Comment: Speci men Type: BLOOD SPECIMENOrdering Facility: [facility] Address: [address] [place] [address] Performed By: #### 2 4321-2, , 2776-05 ####[facility] LABORATORYCLIA [id number] [place] [address] [place] Sodium [Moles/Vol] 136 mmol/L Normal 136-144 [facility] Comment on above: Order Comment: Speci men Type: BLOOD SPECIMENOrdering Facility: [facility] Address: [address] [place] [address] Performed By: #### 2 4321-2, 68207-4, 2776-05 ####[facility] LABORATORYCLIA [id number] [address] STATES [facility] Urea nitrogen [Mass/Vol] 16 mg/dL Normal 7-21 [facility] Comment on above: Order Comment: Speci men Type: BLOOD SPECIMENOrdering Facility: [facility] Address: [address] [place] [address] Performed By: #### 2 4321-2, , 2776-05 ####[facility] LABORATORYCLIA [id number] [address] CBC panel Auto (Bld)on 05-09 Erythrocyte distribution width (RBC) [Ratio] 16.1 % High 11.5-15.0 [facility] Comment on above: Order Comment: Speci men Type: BLOOD SPECIMENOrdering Facility: [facility] Address: [address] [place] [address] Performed By: #### 5 8410-2 ####[facility] LABORATORYCLIA [id number] [address] [facility] Hematocrit (Bld) [Volume fraction] 20.4 % Low 36.0-46.0 [facility] Comment on above: Order Comment: Speci men Type: BLOOD SPECIMENOrdering Facility: [facility] Address: [address] [place] [address] Performed By: #### 5 8410-2 ####[facility] LABORATORYCLIA [id number] [address] Hemoglobin (Bld) [Mass/Vol] 6.4 g/dL Low 11.5-15.5 [facility] Comment on above: Order Comment: Speci men Type: BLOOD SPECIMENOrdering Facility: [facility] Address: [address] [place] [address] Performed By: #### 5 8410-2 ####[facility] LABORATORYCLIA [id number] [address] MCH (RBC) [Entitic mass] 29.9 pg Normal 26.0-34.0 [facility] Comment on above: Order Comment: Speci men Type: BLOOD SPECIMENOrdering Facility: [facility] Address: [address] [place] [address] Performed By: #### 5 8410-2 ####[facility] LABORATORYCLIA [id number] [address] [facility] MCHC (RBC) [Mass/Vol] 31.4 g/dL Normal 30.5-36.0 [facility] Comment on above: Order Comment: Speci men Type: BLOOD SPECIMENOrdering Facility: [facility] Address: [address] [place] [address] Performed By: #### 5 8410-2 ####[facility] LABORATORYCLIA [id number] [address] STATES OF [facility] MCV (RBC) [Entitic vol] 95.3 fL Normal 80.0-100.0 [facility] Comment on above: Order Comment: Speci men Type: BLOOD SPECIMENOrdering Facility: [facility] Address: [address] [place] [address] Performed By: #### 5 8410-2 ####[facility] LABORATORYCLIA [id number] [address] Nucleated RBC (Bld) [#/Vol] 0.02 10*3/uL High <0.01 [facility] Comment on above: Order Comment: Speci men Type: BLOOD SPECIMENOrdering Facility: [facility] Address: [address] [place] [address] Performed By: #### 5 8410-2 ####[facility] LABORATORYCLIA [id number] [address] Platelet mean volume (Bld) [Entitic vol] 11.0 fL Normal 9.0-12.7 [facility] Comment on above: Order Comment: Speci men Type: BLOOD SPECIMENOrdering Facility: [facility] Address: [address] [place] [address] Performed By: #### 5 8410-2 ####[facility] LABORATORYCLIA [id number] [address] [place] Platelets (Bld) [#/Vol] 219 10*3/uL Normal 150-400 [facility] Comment on above: Order Comment: Speci men Type: BLOOD SPECIMENOrdering Facility: [facility] Address: [address] [place] [address] Performed By: #### 5 8410-2 ####[facility] LABORATORYCLIA [id number] [address] [place] RBC (Bld) [#/Vol] 2.14 10*6/uL Low 3.90-5.20 [facility] Comment on above: Order Comment: Speci men Type: BLOOD SPECIMENOrdering Facility: [facility] Address: [address] [place] [address] Performed By: #### 5 8410-2 ####[facility] HUM[facility] SERVICESCLIA [id number] [address] [facility] WBC (Bld) [#/Vol] 10.06 10*3/uL Normal 3.70-11.00 [facility] Comment on above: Order Comment: Speci men Type: BLOOD SPECIMENOrdering Facility: [facility] Address: [address] [place] [address] Performed By: #### 5 8410-2 ####[facility] LABORATORYCLIA [id number] [address] Calcium.ionized [Moles/Vol]o n 05-09-2024 Calcium.ionized (BldV) [Mass/Vol] 1.20 mmol/L Normal 1.08-1.30 [facility] Comment on above: Order Comment: Speci men Type: BLOOD SPECIMENOrdering Facility: [facility] Address: [address] [place] [address] Performed By: #### 1 995-0 ####[facility] LABORATORYCLIA [id number] [address] Calcium.ionized adjusted to pH 7.4 (Bld) [Moles/Vol] 1.17 mmol/L Normal 1.08-1.30 [facility] Comment on above: Order Comment: Speci men Type: BLOOD SPECIMENOrdering Facility: [facility] Address: [address] [place] [address] Performed By: #### 1 995-0 ####[facility] LABORATORYCLIA [id number] [address] STATES [place] [facility] Hematocrit Auto (Bld) [Volum e fraction]on 05-09-2024 Hematocrit (Bld) [Volume fraction] 20.4 % Low 36.0-46.0 [facility] Comment on above: Order Comment: Speci men Type: BLOOD SPECIMENOrdering Facility: [facility] Address: [address] [place] [address] Performed By: #### 4 544-3, 718-7 ####[facility] LABORATORYCLIA [id number] [address] [place] Hgb Bld-mCncon 05-09-2024 Hemoglobin (Bld) [Mass/Vol] 7.4 g/dL Low 11.5-15.5 [facility] Comment on above: Order Comment: Speci men Type: BLOOD SPECIMENOrdering Facility: [facility] Address: [address] [place] [address] Performed By: #### 7 18-7 ####[facility] LABORATORYCLIA [id number] [place] [address] [place] Hemoglobin (Bld) [Mass/Vol] 6.5 g/dL Low 11.5-15.5 [facility] Comment on above: Order Comment: Speci men Type: BLOOD SPECIMENOrdering Facility: [facility] Address: [address] [place] [address] Performed By: #### 4 544-3 718-7 ####[facility] LABORATORYCLIA [id number] [address] [place] Magnesium SerPl-mCncon 05-09 Magnesium [Mass/Vol] 2.0 mg/dL Normal 1.7-2.3 [facility] Comment on above: Order Comment: Speci men Type: BLOOD SPECIMENOrdering Facility: [facility] Address: [address] [place] [address] Performed By: #### 2 4321-2, 85080-0, 2776- ####[facility] LABORATORYCLIA [id number] [place] [address] [place] PT EDon 05-09-2024 PT ED Normal [facility] Phosphate SerPl-mCncon 05-09 Phosphate [Mass/Vol] 2.9 mg/dL Normal 2.7-4.8 [facility] Comment on above: Order Comment: Speci men Type: BLOOD SPECIMENOrdering Facility: [facility] Address: [address] [place] [address] Performed By: #### 2 4321-2, , 2776-05 ####[facility]ORATORYCLIA [id number] [address] [place] THERAPY NTon 05-09-2024 THERAPY NT Normal [facility] THERAPY NT Normal [facility] Basic metabolic 2000 panelon 05-08-2024 Anion gap [Moles/Vol] 9 mmol/L Normal 8-15 [facility] Comment on above: Order Comment: Speci men Type: BLOOD SPECIMENOrdering Facility: [facility] Address: [address] [place] [address] Performed By: #### 2 4321-2 ####[facility] LABORATORYCLIA [id number] [place] [address] [place] Calcium [Mass/Vol] 8.1 mg/dL Low 8.5-10.2 [facility] Comment on above: Order Comment: Speci men Type: BLOOD SPECIMENOrdering Facility: [facility] Address: [address] [place] [address] Performed By: #### 2 4321-2 ####[facility]ORATORYCLIA [id number] [address] [place] Chloride [Moles/Vol] 110 mmol/L High 98-107 [facility] Comment on above: Order Comment: Speci men Type: BLOOD SPECIMENOrdering Facility: [facility] Address: [address] [place] [address] Performed By: #### 2 4321-2 ####[facility] LABORATORYCLIA [id number] [address] STATES OF [facility] CO2 [Moles/Vol] 21 mmol/L Low 22-30 [facility] Comment on above: Order Comment: Speci men Type: BLOOD SPECIMENOrdering Facility: [facility] Address: [address] [place] [address] Performed By: #### 2 4321-2 ####[facility] SERVICESCLIA [id number] [address] STATES [place] [facility] Creatinine [Mass/Vol] 0.65 mg/dL Normal 0.58-0.96 [facility] Comment on above: Order Comment: Speci men Type: BLOOD SPECIMENOrdering Facility: [facility] Address: [address] [place] [address] Performed By: #### 2 4321-2 ####[facility]ORATORYCLIA [id number] [address] Creatinine and Glomerular filtration rate.predicted panel (S/P/Bld) 88 mL/min/1.73m??? Normal >=60 [facility] Comment on above: Order Comment: Speci men Type: BLOOD SPECIMENOrdering Facility: [facility] Address: [address] [place] [address] Result Comment: Kaylene mated Glomerular Filtration Rate (eGFR) is calculated using the 2020 CKD-EPI creatinine equation. This equation utilizes serum creatinine, sex, and age as parameters. The creatinine assay has traceable calibration to isotope dilution-mass spectrometry. Refer to KDIGO guidelines for clinical interpretation. In patients with unstable renal function, e.g. those with acute kidney injury, the eGFR may not accurately reflect actual GFR. Performed By: #### 2 4321-2 ####[facility]ORATORYCLIA [id number] [address] Glucose [Mass/Vol] 168 mg/dL High 74-99 [facility] Comment on above: Order Comment: Speci men Type: BLOOD SPECIMENOrdering Facility: [facility] Address: [address] [place] [address] Result Comment: The [place] Diabetes Association (ADA) provides guidance for cutoff values for fasting glucose and random glucose. The ADA defines fasting as no caloric intake for at least 8 hours. Fasting plasma glucose results between 100 to 125 mg/dL indicate increased risk for diabetes (prediabetes).Fasting plasma glucose results greater than or equal to 126 mg/dL meet the criteria for diagnosis of diabetes. In the absence of unequivocal hyperglycemia, results should be confirmed by repeat testing. In a patient with classic symptoms of hyperglycemia or hyperglycemic crisis, random plasma glucose results greater than or equal to 200 mg/dL meet the criteria for diagnosis of diabetes.Reference: Standards of Medical Care in Diabetes 2016, [place] [employer]. Diabetes Care. 2016.39(Suppl 1). Performed By: #### 2 4321-2 ####[facility] LABORATORYCLIA [id number] [place] [address] [place] Potassium [Moles/Vol] 5.1 mmol/L Normal 3.7-5.1 [facility] Comment on above: Order Comment: Helen ifrah Type: BLOOD SPECIMENOrdering Facility: [facility] Address: [address] [place] [address] Performed By: #### 2 4321-2 ####[facility] LABORATORYCLIA [id number] [place] [address] [place] Sodium [Moles/Vol] 140 mmol/L Normal 136-144 [facility] Comment on above: Order Comment: Speci men Type: BLOOD SPECIMENOrdering Facility: [facility] Address: [address] [place], [place] [id number] Performed By: #### 2 4321-2 ####[facility] LABORATORYCLIA [id number] [place] [address] [place] Urea nitrogen [Mass/Vol] 18 mg/dL Normal 7-21 [facility] Comment on above: Order Comment: Speci men Type: BLOOD SPECIMENOrdering Facility: [facility] Address: [address] [place] [address] Performed By: #### 2 4321-2 ####[facility]ORATORYCLIA [id number] [place] [address] [place] Anion gap [Moles/Vol] 8 mmol/L Normal 8-15 [facility] Comment on above: Order Comment: Speci men Type: BLOOD SPECIMENOrdering Facility: [facility] Address: [address] [place] [address] Performed By: #### 2 4321-2 ####[facility]ORATORYCLIA [id number] [place] [address] [place] Calcium [Mass/Vol] 8.4 mg/dL Low 8.5-10.2 [facility] Comment on above: Order Comment: Speci men Type: BLOOD SPECIMENOrdering Facility: [facility] Address: [address] [place] [address] Performed By: #### 2 4321-2 ####[facility]ORATORYCLIA [id number] [place] [address] [place] Chloride [Moles/Vol] 109 mmol/L High 98-107 [facility] Comment on above: Order Comment: Speci men Type: BLOOD SPECIMENOrdering Facility: [facility] Address: [address] [place] [address] Performed By: #### 2 4321-2 ####[facility] LABORATORYCLIA [id number] [place] [address] [place] CO2 [Moles/Vol] 20 mmol/L Low 22-30 [facility] Comment on above: Order Comment: Speci men Type: BLOOD SPECIMENOrdering Facility: [facility] Address: [address] [place] [address] Performed By: #### 2 4321-2 ####[facility]ATORYCLIA [id number] [place] [address] [place] Creatinine [Mass/Vol] 0.74 mg/dL Normal 0.58-0.96 [facility] Comment on above: Order Comment: Speci men Type: BLOOD SPECIMENOrdering Facility: [facility] Address: [address] [place] [address] Performed By: #### 2 4321-2 ####[facility] LABORATORYCLIA [id number] [address] [place] Creatinine and Glomerular filtration rate.predicted panel (S/P/Bld) 81 mL/min/1.73m??? Normal >=60 [facility] Comment on above: Order Comment: Helen rg Type: BLOOD SPECIMENOrdering Facility: [facility] Address: [address] [place] [address] Result Comment: Kaylene mated Glomerular Filtration Rate (eGFR) is calculated using the 2020 CKD-EPI creatinine equation. This equation utilizes serum creatinine, sex, and age as parameters. The creatinine assay has traceable calibration to isotope dilution-mass spectrometry. Refer to KDIGO guidelines for clinical interpretation. In patients with unstable renal function, e.g. those with acute kidney injury, the eGFR may not accurately reflect actual GFR. Performed By: #### 2 4321-2 ####[facility] LABORATORYCLIA [id number] [place] [address] [place] Glucose [Mass/Vol] 168 mg/dL High 74-99 [facility] Comment on above: Order Comment: Helen rg Type: BLOOD SPECIMENOrdering Facility: [facility] Address: [address] [place] [address] Result Comment: The [place] Diabetes Association (ADA) provides guidance for cutoff values for fasting glucose and random glucose. The ADA defines fasting as no caloric intake for at least 8 hours. Fasting plasma glucose results between 100 to 125 mg/dL indicate increased risk for diabetes (prediabetes).Fasting plasma glucose results greater than or equal to 126 mg/dL meet the criteria for diagnosis of diabetes. In the absence of unequivocal hyperglycemia, results should be confirmed by repeat testing. In a patient with classic symptoms of hyperglycemia or hyperglycemic crisis, random plasma glucose results greater than or equal to 200 mg/dL meet the criteria for diagnosis of diabetes.Reference: Standards of Medical Care in Diabetes 2016, [place] Diabetes [employer]. Diabetes Care. 2016.39(Suppl 1). Performed By: #### 2 4321-2 ####[facility]ORATORYCLIA [id number] [place] [address] [place] Potassium [Moles/Vol] 5.2 mmol/L High 3.7-5.1 [facility] Comment on above: Order Comment: Speci men Type: BLOOD SPECIMENOrdering Facility: [facility] Address: [address] [place] [address] Performed By: #### 2 4321-2 ####[facility]ATORYCLIA [id number] [place] [address] [place] Sodium [Moles/Vol] 137 mmol/L Normal 136-144 [facility] Comment on above: Order Comment: Speci men Type: BLOOD SPECIMENOrdering Facility: [facility] Address: [address] [place] [address] Performed By: #### 2 4321-2 ####[facility] LABORATORYCLIA [id number] [place] [address] [place] Urea nitrogen [Mass/Vol] 17 mg/dL Normal 7-21 [facility] Comment on above: Order Comment: Speci men Type: BLOOD SPECIMENOrdering Facility: [facility] Address: [address] [place] [address] Performed By: #### 2 4321-2 ####[facility]ATORYCLIA [id number] [place] [address] [place] Anion gap [Moles/Vol] 8 mmol/L Normal 8-15 [facility] Comment on above: Order Comment: Speci men Type: BLOOD SPECIMENOrdering Facility: [facility] Address: [address] [place] [address] Performed By: #### 2 4321-2, 51227-1 ####[facility]ATORYCLIA [id number] [place] [address] [place] Calcium [Mass/Vol] 8.6 mg/dL Normal 8.5-10.2 [facility] Comment on above: Order Comment: Speci men Type: BLOOD SPECIMENOrdering Facility: [facility] Address: [address] [place] [address] Performed By: #### 2 4321-2, 90124-6 ####[facility] LABORATORYCLIA [id number] [place] [address] [place] Chloride [Moles/Vol] 109 mmol/L High 98-107 [facility] Comment on above: Order Comment: Speci men Type: BLOOD SPECIMENOrdering Facility: [facility] Address: [address] [place] [address] Performed By: #### 2 4321-2, 67297-0 ####[facility] LABORATORYCLIA [id number] [place] [id number] [place] CO2 [Moles/Vol] 20 mmol/L Low 22-30 [facility] Comment on above: Order Comment: Speci men Type: BLOOD SPECIMENOrdering Facility: [facility] Address: [address] [place] [address] Performed By: #### 2 4321-2, 99996-4 ####[facility] LABORATORYCLIA [id number] [address] Creatinine [Mass/Vol] 0.72 mg/dL Normal 0.58-0.96 [facility] Comment on above: Order Comment: Speci men Type: BLOOD SPECIMENOrdering Facility: [facility] Address: [address] [place] [address] Performed By: #### 2 4321-2, 85649-7 ####[facility] LABORATORYCLIA [id number] [address] Creatinine and Glomerular filtration rate.predicted panel (S/P/Bld) 84 mL/min/1.73m??? Normal >=60 [facility] Comment on above: Order Comment: Speci men Type: BLOOD SPECIMENOrdering Facility: [facility] Address: [address] [place] [address] Result Comment: Kaylene mated Glomerular Filtration Rate (eGFR) is calculated using the 2020 CKD-EPI creatinine equation. This equation utilizes serum creatinine, sex, and age as parameters. The creatinine assay has traceable calibration to isotope dilution-mass spectrometry. Refer to KDIGO guidelines for clinical interpretation. In patients with unstable renal function, e.g. those with acute kidney injury, the eGFR may not accurately reflect actual GFR. Performed By: #### 2 4321-2, 23848-8 ####[facility] LABORATORYCLIA [id number] [place] [address] [place] Glucose [Mass/Vol] 152 mg/dL High 74-99 [facility] Comment on above: Order Comment: Helen gr Type: BLOOD SPECIMENOrdering Facility: [facility] Address: [address] [place] [address] Result Comment: The [employer] Diabetes [employer] (ADA) provides guidance for cutoff values for fasting glucose and random glucose. The ADA defines fasting as no caloric intake for at least 8 hours. Fasting plasma glucose results between 100 to 125 mg/dL indicate increased risk for diabetes (prediabetes).Fasting plasma glucose results greater than or equal to 126 mg/dL meet the criteria for diagnosis of diabetes. In the absence of unequivocal hyperglycemia, results should be confirmed by repeat testing. In a patient with classic symptoms of hyperglycemia or hyperglycemic crisis, random plasma glucose results greater than or equal to 200 mg/dL meet the criteria for diagnosis of diabetes.Reference: Standards of Medical Care in Diabetes 2016, [employer] Association. Diabetes Care. 2016.39(Suppl 1). Performed By: #### 2 4321-2, 19019-8 ####[facility] LABORATORYCLIA [id number] [place] [address] [place] Potassium [Moles/Vol] 5.2 mmol/L High 3.7-5.1 [facility] Comment on above: Order Comment: Helen rg Type: BLOOD SPECIMENOrdering Facility: [facility] Address: [address] [place] [address] Performed By: #### 2 4321-2, 41423-3 ####[facility] LABORATORYCLIA [id number] [place] [address] [place] Sodium [Moles/Vol] 137 mmol/L Normal 136-144 [facility] Comment on above: Order Comment: Helen rg Type: BLOOD SPECIMENOrdering Facility: [facility] Address: [address] [place] [address] Performed By: #### 2 4321-2, 77156-0 ####[facility]ORATORYCLIA [id number] [place] [id number] [place] Urea nitrogen [Mass/Vol] 18 mg/dL Normal 7-21 [facility] Comment on above: Order Comment: Speci men Type: BLOOD SPECIMENOrdering Facility: [facility] Address: [address] [place] [address] Performed By: #### 2 4321-2, 03938-3 ####[facility] LABORATORYCLIA [id number] [place] [address] [place] Anion gap [Moles/Vol] 9 mmol/L Normal 8-15 [facility] Comment on above: Order Comment: Speci men Type: BLOOD SPECIMENOrdering Facility: [facility] Address: [address] [place] [address] Performed By: #### 2 4321-2 ####[facility] LABORATORYCLIA [id number] [place] [address] [place] Calcium [Mass/Vol] 8.5 mg/dL Normal 8.5-10.2 [facility] Comment on above: Order Comment: Speci men Type: BLOOD SPECIMENOrdering Facility: [facility] Address: [address] [place] [address] Performed By: #### 2 4321-2 ####[facility] LABORATORYCLIA [id number] [place] [address] [place] Chloride [Moles/Vol] 104 mmol/L Normal 98-107 [facility] Comment on above: Order Comment: Speci men Type: BLOOD SPECIMENOrdering Facility: [facility] Address: [address] [place] [address] Performed By: #### 2 4321-2 ####[facility]ORATORYCLIA [id number] [place] [address] [place] CO2 [Moles/Vol] 19 mmol/L Low 22-30 [facility] Comment on above: Order Comment: Speci men Type: BLOOD SPECIMENOrdering Facility: [facility] Address: [address] [place] [address] Performed By: #### 2 4321-2 ####[facility] SERVICESCLIA [id number] [place] [id number] [facility] Creatinine [Mass/Vol] 0.64 mg/dL Normal 0.58-0.96 [facility] Comment on above: Order Comment: Speci men Type: BLOOD SPECIMENOrdering Facility: [facility] Address: [address] [place] [address] Performed By: #### 2 4321-2 ####[facility] LABORATORYCLIA [id number] [address] Creatinine and Glomerular filtration rate.predicted panel (S/P/Bld) 88 mL/min/1.73m??? Normal >=60 [facility] Comment on above: Order Comment: Speci men Type: BLOOD SPECIMENOrdering Facility: [facility] Address: [address] [place] [address] Result Comment: Kaylene mated Glomerular Filtration Rate (eGFR) is calculated using the 2020 CKD-EPI creatinine equation. This equation utilizes serum creatinine, sex, and age as parameters. The creatinine assay has traceable calibration to isotope dilution-mass spectrometry. Refer to KDIGO guidelines for clinical interpretation. In patients with unstable renal function, e.g. those with acute kidney injury, the eGFR may not accurately reflect actual GFR. Performed By: #### 2 4321-2 ####[facility] LABORATORYCLIA [id number] [address] STATES [facility] Glucose [Mass/Vol] 251 mg/dL High 74-99 [facility] Comment on above: Order Comment: Speci men Type: BLOOD SPECIMENOrdering Facility: [facility] Address: [address] [place] [address] Result Comment: The [employer] Diabetes Association (ADA) provides guidance for cutoff values for fasting glucose and random glucose. The ADA defines fasting as no caloric intake for at least 8 hours. Fasting plasma glucose results between 100 to 125 mg/dL indicate increased risk for diabetes (prediabetes).Fasting plasma glucose results greater than or equal to 126 mg/dL meet the criteria for diagnosis of diabetes. In the absence of unequivocal hyperglycemia, results should be confirmed by repeat testing. In a patient with classic symptoms of hyperglycemia or hyperglycemic crisis, random plasma glucose results greater than or equal to 200 mg/dL meet the criteria for diagnosis of diabetes.Reference: Standards of Medical Care in Diabetes 2016, [employer] Diabetes [employer]. Diabetes Care. 2016.39(Suppl 1). Performed By: #### 2 4321-2 ####[facility] LABORATORYCLIA [id number] [address] STATES [place] [facility] Potassium [Moles/Vol] 5.7 mmol/L High 3.7-5.1 [facility] Comment on above: Order Comment: Speci men Type: BLOOD SPECIMENOrdering Facility: [facility] Address: [address] [place] [address] Performed By: #### 2 4321-2 ####[facility] LABORATORYCLIA [id number] [address] [place] Sodium [Moles/Vol] 132 mmol/L Low 136-144 [facility] Comment on above: Order Comment: Speci men Type: BLOOD SPECIMENOrdering Facility: [facility] Address: [address] [place] [address] Performed By: #### 2 4321-2 ####[facility] LABORATORYCLIA [id number] [address] [place] Urea nitrogen [Mass/Vol] 19 mg/dL Normal 7-21 [facility] Comment on above: Order Comment: Speci men Type: BLOOD SPECIMENOrdering Facility: [facility] Address: [address] [place] [address] Performed By: #### 2 4321-2 ####[facility] LABORATORYCLIA [id number] [address] [place] Anion gap [Moles/Vol] 12 mmol/L Normal 8-15 [facility] Comment on above: Order Comment: Speci men Type: BLOOD SPECIMENOrdering Facility: [facility] Address: [address] [place] [address] Performed By: #### 2 4321-2, 2776-05, ####[facility] LABORATORYCLIA [id number] [place] [address] [place] Calcium [Mass/Vol] 8.4 mg/dL Low 8.5-10.2 [facility] Comment on above: Order Comment: Speci men Type: BLOOD SPECIMENOrdering Facility: [facility] Address: [address] [place] [address] Performed By: #### 2 4321-2, 2776-05, ####[facility] LABORATORYCLIA [id number] [place] [address] [place] Chloride [Moles/Vol] 105 mmol/L Normal 98-107 [facility] Comment on above: Order Comment: Speci men Type: BLOOD SPECIMENOrdering Facility: [facility] Address: [address] [place] [address] Performed By: #### 2 4321-2, 2776-05, ####[facility] LABORATORYCLIA [id number] [place] [address] [place] CO2 [Moles/Vol] 16 mmol/L Low 22-30 [facility] Comment on above: Order Comment: Speci men Type: BLOOD SPECIMENOrdering Facility: [facility] Address: [address] [place] [address] Performed By: #### 2 4321-2, 2776-05, ####[facility] LABORATORYCLIA [id number] [address] [place] Creatinine [Mass/Vol] 0.70 mg/dL Normal 0.58-0.96 [facility] Comment on above: Order Comment: Speci men Type: BLOOD SPECIMENOrdering Facility: [facility] Address: [address] [place] [address] Performed By: #### 2 4321-2, 2776-05, ####[facility] LABORATORYCLIA [id number] [place] [address] [place] Creatinine and Glomerular filtration rate.predicted panel (S/P/Bld) 86 mL/min/1.73m??? Normal >=60 [facility] Comment on above: Order Comment: Helen rg Type: BLOOD SPECIMENOrdering Facility: [facility] Address: [address] [place] [address] Result Comment: Kaylene mated Glomerular Filtration Rate (eGFR) is calculated using the 2020 CKD-EPI creatinine equation. This equation utilizes serum creatinine, sex, and age as parameters. The creatinine assay has traceable calibration to isotope dilution-mass spectrometry. Refer to KDIGO guidelines for clinical interpretation. In patients with unstable renal function, e.g. those with acute kidney injury, the eGFR may not accurately reflect actual GFR. Performed By: #### 2 4321-2, 2777-, ####[facility] LABORATORYCLIA [id number] [place] [address] [place] Glucose [Mass/Vol] 247 mg/dL High 74-99 [facility] Comment on above: Order Comment: Helen rg Type: BLOOD SPECIMENOrdering Facility: [facility] Address: [address] [place] [address] Result Comment: The [place] Diabetes Association (ADA) provides guidance for cutoff values for fasting glucose and random glucose. The ADA defines fasting as no caloric intake for at least 8 hours. Fasting plasma glucose results between 100 to 125 mg/dL indicate increased risk for diabetes (prediabetes).Fasting plasma glucose results greater than or equal to 126 mg/dL meet the criteria for diagnosis of diabetes. In the absence of unequivocal hyperglycemia, results should be confirmed by repeat testing. In a patient with classic symptoms of hyperglycemia or hyperglycemic crisis, random plasma glucose results greater than or equal to 200 mg/dL meet the criteria for diagnosis of diabetes.Reference: Standards of Medical Care in Diabetes 2016, [employer] Diabetes [employer]. Diabetes Care. 2016.39(Suppl 1). Performed By: #### 2 4321-2, 2777-, ####[facility] LABORATORYCLIA [id number] [place] [address] [place] Potassium [Moles/Vol] 6.2 mmol/L Critically high 3.7-5.1 [facility] Comment on above: Order Comment: Speci men Type: BLOOD SPECIMENOrdering Facility: [facility] Address: [address] [place] [address] Performed By: #### 2 4321-2, 2776-05, ####[facility] LABORATORYCLIA [id number] [place] [address] [place] Sodium [Moles/Vol] 133 mmol/L Low 136-144 [facility] Comment on above: Order Comment: Speci men Type: BLOOD SPECIMENOrdering Facility: [facility] Address: [address] [place] [address] Performed By: #### 2 4321-2, 2776-05, ####[facility] LABORATORYCLIA [id number] [address] [place] Urea nitrogen [Mass/Vol] 19 mg/dL Normal 7-21 [facility] Comment on above: Order Comment: Speci men Type: BLOOD SPECIMENOrdering Facility: [facility] Address: [address] [place] [address] Performed By: #### 2 4321-2, 2776-05, ####[facility] LABORATORYCLIA [id number] [address] [place] CASE MGT INIT ASSESon 2023 CASE MGT INIT ASSES Normal [facility] CBC panel Auto (Bld)on 05-08 Erythrocyte distribution width (RBC) [Ratio] 16.1 % High 11.5-15.0 [facility] Comment on above: Order Comment: Speci men Type: BLOOD SPECIMENOrdering Facility: [facility] Address: [address] [place] [address] Performed By: #### 5 8410-2 ####[facility] LABORATORYCLIA [id number] [address] [place] Hematocrit (Bld) [Volume fraction] 25.6 % Low 36.0-46.0 [facility] Comment on above: Order Comment: Speci men Type: BLOOD SPECIMENOrdering Facility: [facility] Address: [address] [place] [address] Performed By: #### 5 8410-2 ####[facility] LABORATORYCLIA [id number] [address] STATES [place] [facility] Hemoglobin (Bld) [Mass/Vol] 8.1 g/dL Low 11.5-15.5 [facility] Comment on above: Order Comment: Speci men Type: BLOOD SPECIMENOrdering Facility: [facility] Address: [address] [place] [address] Performed By: #### 5 8410-2 ####[facility] LABORATORYCLIA [id number] [address] OF [facility] MCH (RBC) [Entitic mass] 29.9 pg Normal 26.0-34.0 [facility] Comment on above: Order Comment: Speci men Type: BLOOD SPECIMENOrdering Facility: [facility] Address: [address] [place] [address] Performed By: #### 5 8410-2 ####[facility] LABORATORYCLIA [id number] [address] MCHC (RBC) [Mass/Vol] 31.6 g/dL Normal 30.5-36.0 [facility] Comment on above: Order Comment: Speci men Type: BLOOD SPECIMENOrdering Facility: [facility] Address: [address] [place] [address] Performed By: #### 5 8410-2 ####[facility] LABORATORYCLIA [id number] [address] STATES [facility] MCV (RBC) [Entitic vol] 94.5 fL Normal 80.0-100.0 [facility] Comment on above: Order Comment: Speci men Type: BLOOD SPECIMENOrdering Facility: [facility] Address: [address] [place] [address] Performed By: #### 5 8410-2 ####[facility] LABORATORYCLIA [id number] [address] Nucleated RBC (Bld) [#/Vol] 0.02 10*3/uL High <0.01 [facility] Comment on above: Order Comment: Speci men Type: BLOOD SPECIMENOrdering Facility: [facility] Address: [address] [place] [address] Performed By: #### 5 8410-2 ####[facility] LABORATORYCLIA [id number] [address] [place] Platelet mean volume (Bld) [Entitic vol] 10.7 fL Normal 9.0-12.7 [facility] Comment on above: Order Comment: Speci men Type: BLOOD SPECIMENOrdering Facility: [facility] Address: [address] [place] [address] Performed By: #### 5 8410-2 ####[facility] LABORATORYCLIA [id number] [address] [place] Platelets (Bld) [#/Vol] 266 10*3/uL Normal 150-400 [facility] Comment on above: Order Comment: Speci men Type: BLOOD SPECIMENOrdering Facility: [facility] Address: [address] [place] [address] Performed By: #### 5 8410-2 ####[facility]ORATORYCLIA [id number] [address] [place] RBC (Bld) [#/Vol] 2.71 10*6/uL Low 3.90-5.20 [facility] Comment on above: Order Comment: Speci men Type: BLOOD SPECIMENOrdering Facility: [facility] Address: [address] [place] [address] Performed By: #### 5 8410-2 ####[facility] LABORATORYCLIA [id number] [address] [place] WBC (Bld) [#/Vol] 14.54 10*3/uL High 3.70-11.00 [facility] Comment on above: Order Comment: Speci men Type: BLOOD SPECIMENOrdering Facility: [facility] Address: [address] [place] [address] Performed By: #### 5 8410-2 ####[facility] LABORATORYCLIA [id number] [address] OF [facility] CONSULT PROGon 05-08-2024 CONSULT PROG Normal [facility] Calcium.ionized [Moles/Vol]o n 05-08-2024 Calcium.ionized (BldV) [Mass/Vol] 1.23 mmol/L Normal 1.08-1.30 [facility] Comment on above: Order Comment: Speci men Type: BLOOD SPECIMENOrdering Facility: [facility] Address: [address] [place] [address] Performed By: #### 1 995-0 ####[facility]ORATORYCLIA [id number] [address] Calcium.ionized adjusted to pH 7.4 (Bld) [Moles/Vol] 1.17 mmol/L Normal 1.08-1.30 [facility] Comment on above: Order Comment: Speci men Type: BLOOD SPECIMENOrdering Facility: [facility] Address: [address] [place], [place] [address] Performed By: #### 1 995-0 ####[facility]ORATORYCLIA [id number] [address] ECG COMPLETEon 05-08-2024 ECG COMPLETE Normal [facility] Magnesium SerPl-ncon 05-08 Magnesium [Mass/Vol] 2.2 mg/dL Normal 1.7-2.3 [facility] Comment on above: Order Comment: Speci [facility] Type: BLOOD SPECIMENOrdering Facility: [facility] Address: [address] [place], [place] [address] Performed By: #### 2 4321-2, 2777-1, 11232-0 ####[facility]ORATORYCLIA [id number] [address] NURSING PROGon 05-08-2024 NURSING PROG Normal [facility] Phosphate SerPl-mCncon 05-08 Phosphate [Mass/Vol] 3.7 mg/dL Normal 2.7-4.8 [facility] Comment on above: Order Comment: Speci men Type: BLOOD SPECIMENOrdering Facility: [facility] Address: [address] [place] [address] Performed By: #### 2 4321-2, 2777-1, 48042-3 ####[facility] LABORATORYCLIA [id number] [address] [place] Procalcitonin SerPl-mCncon 1 07-09-2023 Procalcitonin [Mass/Vol] 0.22 ng/mL High <0.09 [facility] Comment on above: Order Comment: Speci men Type: BLOOD SPECIMENOrdering Facility: [facility] Address: [address] [place] [address] Result Comment: For a guided interpretation of test results, please visit the Change in Procalcitonin Calculator, [email or web address]. Performed By: #### 2 4321-2, 08084-6 ####[facility] LABORATORYCLIA [id number] [address] [place] THERAPY NTon 05-08-2024 THERAPY NT Normal [facility] THERAPY NT Normal [facility] XR CHEST 1V FRONTALon 2023 XR CHEST 1V FRONTAL Normal [facility] ANES POSTPROC EVALon 024 ANES POSTPROC EVAL Normal [facility] ANES PRE-OPon 05-07-2024 ANES PRE-OP Normal [facility] BRIEF OP NOTon 05-07-2024 BRIEF OP NOT Normal [facility] Basic metabolic 2000 panelon 05-07-2024 Anion gap [Moles/Vol] 8 mmol/L Normal 8-15 [facility] Comment on above: Order Comment: Speci men Type: BLOOD SPECIMENOrdering Facility: [facility] Address: [address] [place] [address] Performed By: #### 2 4321-2 ####[facility] LABORATORYCLIA [id number] [address] [place] Calcium [Mass/Vol] 8.2 mg/dL Low 8.5-10.2 [facility] Comment on above: Order Comment: Speci men Type: BLOOD SPECIMENOrdering Facility: [facility] Address: [address] [place] [address] Performed By: #### 2 4321-2 ####[facility] LABORATORYCLIA [id number] [place] [address] [place] Chloride [Moles/Vol] 111 mmol/L High 98-107 [facility] Comment on above: Order Comment: Speci men Type: BLOOD SPECIMENOrdering Facility: [facility] Address: [address] [place] [address] Performed By: #### 2 4321-2 ####[facility] LABORATORYCLIA [id number] [place] [address] [place] CO2 [Moles/Vol] 18 mmol/L Low 22-30 [facility] Comment on above: Order Comment: Speci men Type: BLOOD SPECIMENOrdering Facility: [facility] Address: [address] [place] [address] Performed By: #### 2 4321-2 ####[facility] LABORATORYCLIA [id number] [place] [address] [place] Creatinine [Mass/Vol] 0.57 mg/dL Low 0.58-0.96 [facility] Comment on above: Order Comment: Speci men Type: BLOOD SPECIMENOrdering Facility: [facility] Address: [address] [place] [address] Performed By: #### 2 4321-2 ####[facility] LABORATORYCLIA [id number] [address] [place] Creatinine and Glomerular filtration rate.predicted panel (S/P/Bld) 91 mL/min/1.73m??? Normal >=60 [facility] Comment on above: Order Comment: Speci men Type: BLOOD SPECIMENOrdering Facility: [facility] Address: [address] [place] [address] Result Comment: Kaylene mated Glomerular Filtration Rate (eGFR) is calculated using the 2020 CKD-EPI creatinine equation. This equation utilizes serum creatinine, sex, and age as parameters. The creatinine assay has traceable calibration to isotope dilution-mass spectrometry. Refer to KDIGO guidelines for clinical interpretation. In patients with unstable renal function, e.g. those with acute kidney injury, the eGFR may not accurately reflect actual GFR. Performed By: #### 2 4321-2 ####[facility] LABORATORYCLIA [id number] [place] [address] [place] Glucose [Mass/Vol] 179 mg/dL High 74-99 [facility] Comment on above: Order Comment: Speci men Type: BLOOD SPECIMENOrdering Facility: [facility] Address: [address] [place] [address] Result Comment: The [place] Diabetes Association (ADA) provides guidance for cutoff values for fasting glucose and random glucose. The ADA defines fasting as no caloric intake for at least 8 hours. Fasting plasma glucose results between 100 to 125 mg/dL indicate increased risk for diabetes (prediabetes).Fasting plasma glucose results greater than or equal to 126 mg/dL meet the criteria for diagnosis of diabetes. In the absence of unequivocal hyperglycemia, results should be confirmed by repeat testing. In a patient with classic symptoms of hyperglycemia or hyperglycemic crisis, random plasma glucose results greater than or equal to 200 mg/dL meet the criteria for diagnosis of diabetes.Reference: Standards of Medical Care in Diabetes 2016, [employer]. Diabetes Care. 2016.39(Suppl 1). Performed By: #### 2 4321-2 ####[facility] LABORATORYCLIA [id number] [place] [address] [place] Potassium [Moles/Vol] 7.3 mmol/L Critically high 3.7-5.1 [facility] Comment on above: Order Comment: Speci men Type: BLOOD SPECIMENOrdering Facility: [facility] Address: [address] [place] [id number] Performed By: #### 2 4321-2 ####[facility] LABORATORYCLIA [id number] [place] [id number] [place] Sodium [Moles/Vol] 137 mmol/L Normal 136-144 [facility] Comment on above: Order Comment: Speci men Type: BLOOD SPECIMENOrdering Facility: [facility] Address: [address] [place] [address] Performed By: #### 2 4321-2 ####[facility] LABORATORYCLIA [id number] [place] [address] [place] Urea nitrogen [Mass/Vol] 16 mg/dL Normal 7-21 [facility] Comment on above: Order Comment: Speci men Type: BLOOD SPECIMENOrdering Facility: [facility] Address: [address] [place] [address] Performed By: #### 2 4321-2 ####[facility] LABORATORYCLIA [id number] [place] [address] [place] Anion gap [Moles/Vol] 9 mmol/L Normal 8-15 [facility] Comment on above: Order Comment: Speci men Type: BLOOD SPECIMENOrdering Facility: [facility] Address: [address] [place] [address] Performed By: #### 2 777-1, , ####[facility] LABORATORYCLIA [id number] [place] [address] [place] Calcium [Mass/Vol] 4.8 mg/dL Low 8.5-10.2 [facility] Comment on above: Order Comment: Speci men Type: BLOOD SPECIMENOrdering Facility: [facility] Address: [address] [place] [address] Performed By: #### 2 777-1, , ####[facility] LABORATORYCLIA [id number] [place] [address] [place] Chloride [Moles/Vol] 123 mmol/L High 98-107 [facility] Comment on above: Order Comment: Speci men Type: BLOOD SPECIMENOrdering Facility: [facility] Address: [address] [place] [address] Performed By: #### 2 777-1, 74968-5, ####[facility] LABORATORYCLIA [id number] [place] [address] [place] CO2 [Moles/Vol] 12 mmol/L Low 22-30 [facility] Comment on above: Order Comment: Speci men Type: BLOOD SPECIMENOrdering Facility: [facility] Address: [address] [place] [address] Performed By: #### 2 777-1, 12326-8, ####[facility] LABORATORYCLIA [id number] [address] [place] Creatinine [Mass/Vol] 0.45 mg/dL Low 0.58-0.96 [facility] Comment on above: Order Comment: Speci men Type: BLOOD SPECIMENOrdering Facility: [facility] Address: [address] [place] [address] Performed By: #### 2 777-1, 56194-2, ####[facility] SERVICESCLIA [id number] [address] Creatinine and Glomerular filtration rate.predicted panel (S/P/Bld) 96 mL/min/1.73m??? Normal >=60 [facility] Comment on above: Order Comment: Speci men Type: BLOOD SPECIMENOrdering Facility: [facility] Address: [address] [place] [address] Result Comment: Kaylene mated Glomerular Filtration Rate (eGFR) is calculated using the 2020 CKD-EPI creatinine equation. This equation utilizes serum creatinine, sex, and age as parameters. The creatinine assay has traceable calibration to isotope dilution-mass spectrometry. Refer to KDIGO guidelines for clinical interpretation. In patients with unstable renal function, e.g. those with acute kidney injury, the eGFR may not accurately reflect actual GFR. Performed By: #### 2 777-1, 75695-6, ####[facility] LABORATORYCLIA [id number] [address] [place] Glucose [Mass/Vol] 125 mg/dL High 74-99 [facility] Comment on above: Order Comment: Speci men Type: BLOOD SPECIMENOrdering Facility: [facility] Address: [address] [place] [address] Result Comment: The [place] Diabetes Association (ADA) provides guidance for cutoff values for fasting glucose and random glucose. The ADA defines fasting as no caloric intake for at least 8 hours. Fasting plasma glucose results between 100 to 125 mg/dL indicate increased risk for diabetes (prediabetes).Fasting plasma glucose results greater than or equal to 126 mg/dL meet the criteria for diagnosis of diabetes. In the absence of unequivocal hyperglycemia, results should be confirmed by repeat testing. In a patient with classic symptoms of hyperglycemia or hyperglycemic crisis, random plasma glucose results greater than or equal to 200 mg/dL meet the criteria for diagnosis of diabetes.Reference: Standards of Medical Care in Diabetes 2016, [employer] Diabetes Association. Diabetes Care. 2016.39(Suppl 1). Performed By: #### 2 777-1, , ####[facility] LABORATORYCLIA [id number] [place] [address] [place] Potassium [Moles/Vol] 2.5 mmol/L Low 3.7-5.1 [facility] Comment on above: Order Comment: Helen rg Type: BLOOD SPECIMENOrdering Facility: [facility] Address: [address] [place] [address] Performed By: #### 2 777-1, , ####[facility] LABORATORYCLIA [id number] [place] [address] [place] Sodium [Moles/Vol] 144 mmol/L Normal 136-144 [facility] Comment on above: Order Comment: Bernardoi men Type: BLOOD SPECIMENOrdering Facility: [facility] Address: [address] [place] [address] Performed By: #### 2 777-1, , ####[facility] LABORATORYCLIA [id number] [place] [address] [place] Urea nitrogen [Mass/Vol] 14 mg/dL Normal 7-21 [facility] Comment on above: Order Comment: Helen men Type: BLOOD SPECIMENOrdering Facility: [facility] Address: [address] [place] [address] Performed By: #### 2 777-1, , ####[facility] LABORATORYCLIA [id number] [place] [address] [place] Anion gap [Moles/Vol] 10 mmol/L Normal 8-15 [facility] Comment on above: Order Comment: Speci men Type: BLOOD SPECIMENOrdering Facility: [facility] Address: [address] [place] [address] Performed By: #### 2 777-1, , ####[facility] LABORATORYCLIA [id number] [place] [address] [place] Calcium [Mass/Vol] 6.2 mg/dL Low 8.5-10.2 [facility] Comment on above: Order Comment: Speci men Type: BLOOD SPECIMENOrdering Facility: [facility] Address: [address] [place] [address] Performed By: #### 2 777-1, , ####[facility] LABORATORYCLIA [id number] [place] [address] [place] Chloride [Moles/Vol] 117 mmol/L High 98-107 [facility] Comment on above: Order Comment: Speci men Type: BLOOD SPECIMENOrdering Facility: [facility] Address: [address] [place] [address] Performed By: #### 2 777-1, , ####[facility] LABORATORYCLIA [id number] [place] [address] [place] CO2 [Moles/Vol] 15 mmol/L Low 22-30 [facility] Comment on above: Order Comment: Speci men Type: BLOOD SPECIMENOrdering Facility: [facility] Address: [address] [place] [address] Performed By: #### 2 777-1, 56519-4, ####[facility] LABORATORYCLIA [id number] [place] [address] [place] Creatinine [Mass/Vol] 0.51 mg/dL Low 0.58-0.96 [facility] Comment on above: Order Comment: Helen rg Type: BLOOD SPECIMENOrdering Facility: [facility] Address: [address] [place] [address] Performed By: #### 2 777-1, 93755-6, ####[facility] LABORATORYCLIA [id number] [place] [id number] [facility] [place] Creatinine and Glomerular filtration rate.predicted panel (S/P/Bld) 93 mL/min/1.73m??? Normal >=60 [facility] Comment on above: Order Comment: Helen rg Type: BLOOD SPECIMENOrdering Facility: [facility] Address: [address] [place] [address] Result Comment: Kaylene mated Glomerular Filtration Rate (eGFR) is calculated using the 2020 CKD-EPI creatinine equation. This equation utilizes serum creatinine, sex, and age as parameters. The creatinine assay has traceable calibration to isotope dilution-mass spectrometry. Refer to KDIGO guidelines for clinical interpretation. In patients with unstable renal function, e.g. those with acute kidney injury, the eGFR may not accurately reflect actual GFR. Performed By: #### 2 777-1, 63899-8, ####[facility] LABORATORYCLIA [id number] [place] [id number] [place] Glucose [Mass/Vol] 148 mg/dL High 74-99 [facility] Comment on above: Order Comment: Helen rg Type: BLOOD SPECIMENOrdering Facility: [facility] Address: [address] [place] [address] Result Comment: The [place] Diabetes Association (ADA) provides guidance for cutoff values for fasting glucose and random glucose. The ADA defines fasting as no caloric intake for at least 8 hours. Fasting plasma glucose results between 100 to 125 mg/dL indicate increased risk for diabetes (prediabetes).Fasting plasma glucose results greater than or equal to 126 mg/dL meet the criteria for diagnosis of diabetes. In the absence of unequivocal hyperglycemia, results should be confirmed by repeat testing. In a patient with classic symptoms of hyperglycemia or hyperglycemic crisis, random plasma glucose results greater than or equal to 200 mg/dL meet the criteria for diagnosis of diabetes.Reference: Standards of Medical Care in Diabetes 2016, [employer] Diabetes Association. Diabetes Care. 2016.39(Suppl 1). Performed By: #### 2 777-1, 07139-2, ####[facility] LABORATORYCLIA [id number] [place] [address] [place] Potassium [Moles/Vol] 3.1 mmol/L Low 3.7-5.1 [facility] Comment on above: Order Comment: Speci men Type: BLOOD SPECIMENOrdering Facility: [facility] Address: [address] [place] [address] Performed By: #### 2 777-1, 91307-7, ####[facility] LABORATORYCLIA [id number] [address] [place] Sodium [Moles/Vol] 142 mmol/L Normal 136-144 [facility] Comment on above: Order Comment: Speci men Type: BLOOD SPECIMENOrdering Facility: [facility] Address: [address] [place] [address] Performed By: #### 2 777-1, 96958-3, ####[facility] LABORATORYCLIA [id number] [address] [place] Urea nitrogen [Mass/Vol] 17 mg/dL Normal 7-21 [facility] Comment on above: Order Comment: Speci men Type: BLOOD SPECIMENOrdering Facility: [facility] Address: [address] [place] [address] Performed By: #### 2 777-1, 81007-9, ####[facility] LABORATORYCLIA [id number] [place] [id number] [place] CBC panel Auto (Bld)on 05-07 Erythrocyte distribution width (RBC) [Ratio] 15.8 % High 11.5-15.0 [facility] Comment on above: Order Comment: Speci men Type: BLOOD SPECIMENOrdering Facility: [facility] Address: [address] [place] [address] Performed By: #### 5 8410-2 ####[facility] LABORATORYCLIA [id number] [address] Hematocrit (Bld) [Volume fraction] 27.4 % Low 36.0-46.0 [facility] Comment on above: Order Comment: Speci men Type: BLOOD SPECIMENOrdering Facility: [facility] Address: [address] [place] [address] Performed By: #### 5 8410-2 ####[facility] LABORATORYCLIA [id number] [address] OF [facility] Hemoglobin (Bld) [Mass/Vol] 8.8 g/dL Low 11.5-15.5 [facility] Comment on above: Order Comment: Speci men Type: BLOOD SPECIMENOrdering Facility: [facility] Address: [address] [place] [address] Performed By: #### 5 8410-2 ####[facility] LABORATORYCLIA [id number] [address] MCH (RBC) [Entitic mass] 29.8 pg Normal 26.0-34.0 [facility] Comment on above: Order Comment: Speci men Type: BLOOD SPECIMENOrdering Facility: [facility] Address: [address] [place] [address] Performed By: #### 5 8410-2 ####[facility] LABORATORYCLIA [id number] [address] [place] MCHC (RBC) [Mass/Vol] 32.1 g/dL Normal 30.5-36.0 [facility] Comment on above: Order Comment: Speci men Type: BLOOD SPECIMENOrdering Facility: [facility] Address: [address] [place] [address] Performed By: #### 5 8410-2 ####[facility] LABORATORYCLIA [id number] [address] OF [facility] MCV (RBC) [Entitic vol] 92.9 fL Normal 80.0-100.0 [facility] Comment on above: Order Comment: Speci men Type: BLOOD SPECIMENOrdering Facility: [facility] Address: [address] [place] [address] Performed By: #### 5 8410-2 ####[facility]ORATORYCLIA [id number] [address] Nucleated RBC (Bld) [#/Vol] 10*3/uL Normal <0.01 [facility] Comment on above: Order Comment: Speci men Type: BLOOD SPECIMENOrdering Facility: [facility] Address: [address] [place] [address] Performed By: #### 5 8410-2 ####[facility] LABORATORYCLIA [id number] [address] [place] Platelet mean volume (Bld) [Entitic vol] 10.8 fL Normal 9.0-12.7 [facility] Comment on above: Order Comment: Speci men Type: BLOOD SPECIMENOrdering Facility: [facility] Address: [address] [place] [address] Performed By: #### 5 8410-2 ####[facility] LABORATORYCLIA [id number] [address] [place] Platelets (Bld) [#/Vol] 250 10*3/uL Normal 150-400 [facility] Comment on above: Order Comment: Speci men Type: BLOOD SPECIMENOrdering Facility: [facility] Address: [address] [place] [address] Performed By: #### 5 8410-2 ####[facility] LABORATORYCLIA [id number] [address] [place] RBC (Bld) [#/Vol] 2.95 10*6/uL Low 3.90-5.20 [facility] Comment on above: Order Comment: Speci men Type: BLOOD SPECIMENOrdering Facility: [facility] Address: [address] [place] [address] Performed By: #### 5 8410-2 ####[facility] LABORATORYCLIA [id number] [address] WBC (Bld) [#/Vol] 12.58 10*3/uL High 3.70-11.00 [facility] Comment on above: Order Comment: Speci men Type: BLOOD SPECIMENOrdering Facility: [facility] Address: [address] [place] [address] Performed By: #### 5 8410-2 ####[facility] LABORATORYCLIA [id number] [address] STATES [place] [facility] Erythrocyte distribution width (RBC) [Ratio] 16.0 % High 11.5-15.0 [facility] Comment on above: Order Comment: Speci men Type: BLOOD SPECIMENOrdering Facility: [facility] Address: [address] [place] [address] Performed By: #### 5 8410-2 ####[facility] LABORATORYCLIA [id number] [address] Hematocrit (Bld) [Volume fraction] 21.8 % Low 36.0-46.0 [facility] Comment on above: Order Comment: Speci men Type: BLOOD SPECIMENOrdering Facility: [facility] Address: [address] [place] [address] Performed By: #### 5 8410-2 ####[facility]ORATORYCLIA [id number] [address] STATES [place] [facility] Hemoglobin (Bld) [Mass/Vol] 7.0 g/dL Low 11.5-15.5 [facility] Comment on above: Order Comment: Speci men Type: BLOOD SPECIMENOrdering Facility: [facility] Address: [address] [place] [address] Performed By: #### 5 8410-2 ####[facility] LABORATORYCLIA [id number] [address] MCH (RBC) [Entitic mass] 29.9 pg Normal 26.0-34.0 [facility] Comment on above: Order Comment: Speci men Type: BLOOD SPECIMENOrdering Facility: [facility] Address: [address] [place] [address] Performed By: #### 5 8410-2 ####[facility]ORATORYCLIA [id number] [address] MCHC (RBC) [Mass/Vol] 32.1 g/dL Normal 30.5-36.0 [facility] Comment on above: Order Comment: Speci men Type: BLOOD SPECIMENOrdering Facility: [facility] Address: [address] [place] [address] Performed By: #### 5 8410-2 ####[facility] LABORATORYCLIA [id number] [address] [place] MCV (RBC) [Entitic vol] 93.2 fL Normal 80.0-100.0 [facility] Comment on above: Order Comment: Speci men Type: BLOOD SPECIMENOrdering Facility: [facility] Address: [address] [place] [address] Performed By: #### 5 8410-2 ####[facility] LABORATORYCLIA [id number] [address] OF [facility] Nucleated RBC (Bld) [#/Vol] 10*3/uL Normal <0.01 [facility] Comment on above: Order Comment: Speci men Type: BLOOD SPECIMENOrdering Facility: [facility] Address: [address] [place] [address] Performed By: #### 5 8410-2 ####[facility] LABORATORYCLIA [id number] [address] STATES [facility] Platelet mean volume (Bld) [Entitic vol] 10.7 fL Normal 9.0-12.7 [facility] Comment on above: Order Comment: Speci men Type: BLOOD SPECIMENOrdering Facility: [facility] Address: [address] [place] [address] Performed By: #### 5 8410-2 ####[facility] LABORATORYCLIA [id number] [address] [place] Platelets (Bld) [#/Vol] 284 10*3/uL Normal 150-400 [facility] Comment on above: Order Comment: Speci men Type: BLOOD SPECIMENOrdering Facility: [facility] Address: [address] [place] [address] Performed By: #### 5 8410-2 ####[facility] LABORATORYCLIA [id number] [address] [place] RBC (Bld) [#/Vol] 2.34 10*6/uL Low 3.90-5.20 [facility] Comment on above: Order Comment: Speci men Type: BLOOD SPECIMENOrdering Facility: [facility] Address: [address] [place] [address] Performed By: #### 5 8410-2 ####[facility] LABORATORYCLIA [id number] [address] OF [facility] WBC (Bld) [#/Vol] 10.97 10*3/uL Normal 3.70-11.00 [facility] Comment on above: Order Comment: Speci men Type: BLOOD SPECIMENOrdering Facility: [facility] Address: [address] [place] [address] Performed By: #### 5 8410-2 ####[facility] LABORATORYCLIA [id number] [address] [place] Erythrocyte distribution width (RBC) [Ratio] 16.2 % High 11.5-15.0 [facility] Comment on above: Order Comment: Speci men Type: BLOOD SPECIMENOrdering Facility: [facility] Address: [address] [place] [address] Performed By: #### 5 8410-2 ####[facility] LABORATORYCLIA [id number] [address] Hematocrit (Bld) [Volume fraction] 15.9 % Low 36.0-46.0 [facility] Comment on above: Order Comment: Speci men Type: BLOOD SPECIMENOrdering Facility: [facility] Address: [address] [place] [address] Performed By: #### 5 8410-2 ####[facility] LABORATORYCLIA [id number] [address] Hemoglobin (Bld) [Mass/Vol] 5.0 g/dL Critically low 11.5-15.5 [facility] Comment on above: Order Comment: Speci men Type: BLOOD SPECIMENOrdering Facility: [facility] Address: [address] [place] [address] Performed By: #### 5 8410-2 ####[facility] LABORATORYCLIA [id number] [address] MCH (RBC) [Entitic mass] 29.8 pg Normal 26.0-34.0 [facility] Comment on above: Order Comment: Speci men Type: BLOOD SPECIMENOrdering Facility: [facility] Address: [address] [place] [address] Performed By: #### 5 8410-2 ####[facility] LABORATORYCLIA [id number] [address] MCHC (RBC) [Mass/Vol] 31.4 g/dL Normal 30.5-36.0 [facility] Comment on above: Order Comment: Speci men Type: BLOOD SPECIMENOrdering Facility: [facility] Address: [address] [place] [address] Performed By: #### 5 8410-2 ####[facility] LABORATORYCLIA [id number] [address] MCV (RBC) [Entitic vol] 94.6 fL Normal 80.0-100.0 [facility] Comment on above: Order Comment: Speci men Type: BLOOD SPECIMENOrdering Facility: [facility] Address: [address] [place] [address] Performed By: #### 5 8410-2 ####[facility]ORATORYCLIA [id number] [address] Nucleated RBC (Bld) [#/Vol] 10*3/uL Normal <0.01 [facility] Comment on above: Order Comment: Speci men Type: BLOOD SPECIMENOrdering Facility: [facility] Address: [address] [place] [address] Performed By: #### 5 8410-2 ####[facility] LABORATORYCLIA [id number] [address] [place] Platelet mean volume (Bld) [Entitic vol] 10.6 fL Normal 9.0-12.7 [facility] Comment on above: Order Comment: Speci men Type: BLOOD SPECIMENOrdering Facility: [facility] Address: [address] [place] [address] Performed By: #### 5 8410-2 ####[facility] LABORATORYCLIA [id number] [place] [address] [place] Platelets (Bld) [#/Vol] 191 10*3/uL Normal 150-400 [facility] Comment on above: Order Comment: Speci men Type: BLOOD SPECIMENOrdering Facility: [facility] Address: [address] [place] [address] Result Comment: No c lot detected. Performed By: #### 5 8410-2 ####[facility] LABORATORYCLIA [id number] [place] [address] [place] RBC (Bld) [#/Vol] 1.68 10*6/uL Low 3.90-5.20 [facility] Comment on above: Order Comment: Speci men Type: BLOOD SPECIMENOrdering Facility: [facility] Address: [address] [place] [address] Performed By: #### 5 8410-2 ####[facility] LABORATORYCLIA [id number] [address] [place] WBC (Bld) [#/Vol] 8.31 10*3/uL Normal 3.70-11.00 [facility] Comment on above: Order Comment: Speci men Type: BLOOD SPECIMENOrdering Facility: [facility] Address: [address] [place] [address] Performed By: #### 5 8410-2 ####[facility] LABORATORYCLIA [id number] [address] CONSULT PROGon 12-08-2024 CONSULT PROG Normal [facility] CT BRAIN WO IVCONon 05-07-20 CT BRAIN WO IVCON Normal [facility] CT BRAIN WO IVCON Normal [facility] Calcium.ionized [Moles/Vol]o n 05-07-2024 Calcium.ionized (BldV) [Mass/Vol] 1.06 mmol/L Low 1.08-1.30 [facility] Comment on above: Order Comment: Speci men Type: BLOOD SPECIMENOrdering Facility: [facility] Address: [address] [place] [address] Performed By: #### 1 995-0 ####[facility] LABORATORYCLIA [id number] [address] Calcium.ionized adjusted to pH 7.4 (Bld) [Moles/Vol] 1.07 mmol/L Low 1.08-1.30 [facility] Comment on above: Order Comment: Speci men Type: BLOOD SPECIMENOrdering Facility: [facility] Address: [address] [place] [address] Performed By: #### 1 995-0 ####[facility] LABORATORYCLIA [id number] [address] Calcium.ionized (BldV) [Mass/Vol] 1.07 mmol/L Low 1.08-1.30 [facility] Comment on above: Order Comment: Speci men Type: BLOOD SPECIMENOrdering Facility: [facility] Address: [address] [place] [address] Performed By: #### 1 995-0 ####[facility] LABORATORYCLIA [id number] [address] Calcium.ionized adjusted to pH 7.4 (Bld) [Moles/Vol] 1.09 mmol/L Normal 1.08-1.30 [facility] Comment on above: Order Comment: Speci men Type: BLOOD SPECIMENOrdering Facility: [facility] Address: [address] [place] [address] Performed By: #### 1 995-0 ####[facility] LABORATORYCLIA [id number] [place] [address] [place] Magnesium SerPl-mCncon 05-07 Magnesium [Mass/Vol] 1.1 mg/dL Low 1.7-2.3 [facility] Comment on above: Order Comment: Speci men Type: BLOOD SPECIMENOrdering Facility: [facility] Address: [address] [place] [address] Performed By: #### 2 777-1, 13842-7, ####[facility] LABORATORYCLIA [id number] [place] [id number] [place] Magnesium [Mass/Vol] 1.5 mg/dL Low 1.7-2.3 [facility] Comment on above: Order Comment: Speci men Type: BLOOD SPECIMENOrdering Facility: [facility] Address: [address] [place] [address] Performed By: #### 2 777-1, 84443-5, ####[facility] LABORATORYCLIA [id number] [address] [place] NURSING PROGon 05-07-2024 NURSING PROG Normal [facility] NURSING PROG Normal [facility] OPERATIVE NOon 05-07-2024 OPERATIVE NO Normal [facility] Phosphate SerPl-mCncon 05-07 Phosphate [Mass/Vol] 2.1 mg/dL Low 2.7-4.8 [facility] Comment on above: Order Comment: Speci men Type: BLOOD SPECIMENOrdering Facility: [facility] Address: [address] [place] [address] Performed By: #### 2 777-1, 65398-6, ####[facility] LABORATORYCLIA [id number] [address] STATES OF [facility] Phosphate [Mass/Vol] 2.6 mg/dL Low 2.7-4.8 [facility] Comment on above: Order Comment: Speci men Type: BLOOD SPECIMENOrdering Facility: [facility] Address: [address] [place], [place] [address], [place] [address] Performed By: #### 2 777-1, 17699-5, 39481-6 ####[facility] LABORATORYCLIA [id number] [place] [address] [facility] THERAPY NTon 05-07-2024 THERAPY NT Normal [facility] XR ABDOMEN 1V SUPINEon 05-07 XR ABDOMEN 1V SUPINE Normal [facility] XR CHEST 1V FRONTALon 2023 XR CHEST 1V FRONTAL Normal [facility] XR FEMUR 2V AP/LAT LTon - XR FEMUR 2V AP/LAT LT Normal [facility] ALLIED HEALTHon 05-06-2024 ALLIED HEALTH Normal [facility] ANES POSTPROC EVALon 024 ANES POSTPROC EVAL Normal [facility] ANES PRE-OPon 05-06-2024 ANES PRE-OP Normal [facility] Basic Metabolic Profile (BMP )on 05-06-2024 BUN/CRE 29.7 RATIO High 10-20 [facility] Comment on above: Performed By: #### L 500.2500, L100.0100 ####[facility] [id number] [facility] [place], [address] [place],Total 8.6 mg/dL Normal 8.5-10.1 [facility] Comment on above: Performed By: #### L 500.2500, L100.0100 ####[facility] [id number] [facility] [place], [address] Chloride [Moles/Vol] 109 mmol/L High 98-107 [facility] Comment on above: Performed By: #### L 500.2500, L100.0100 ####[facility] [id number] [facility] [place], [address] CO2 [Moles/Vol] 24.0 mmol/L Normal 21.0-32.0 [facility] Comment on above: Performed By: #### L 500.2500, L100.0100 ####[facility] [id number] [place] [place], [address] Creatinine [Mass/Vol] 0.57 mg/dL Normal 0.55-1.02 [facility] Comment on above: Result Comment: The validity of the calculated GFR GFRAA in patients over70 years has not been determined. Clinical correlation isessential. Performed By: #### L 500.2500, L100.0100 ####[facility] [address] [place], [address] ECRCL 60.00 ml/min Normal [facility] Comment on above: Performed By: #### L 500.2500, L100.0100 ####[facility] [address] [place], [address] EST GFR - AA 130 mL/min Normal >60 [facility] Comment on above: Result Comment: Afri can Irish GFR Calc Performed By: #### L 500.2500, L100.0100 ####[facility] [address] [place], [address] GAP 7 Normal 5-15 [facility] Comment on above: Performed By: #### L 500.2500, L100.0100 ####[facility] [address] [place], [address] GFR/1.73 sq M.predicted among non-blacks MDRD (S/P/Bld) [Vol rate/Area] 107 mL/min/{1.73_m2} Normal >60 [facility] Comment on above: Result Comment: Non- GFR Calc Performed By: #### L 500.2500, L100.0100 ####[facility] [address] [place], [address] Glucose [Mass/Vol] 134 mg/dL High 74-106 [facility] Comment on above: Result Comment: Fast ing Glucose result greater than or equal to 126 mg/dLsuggests DIABETES MELLITUS per A.D.A. criteria. Performed By: #### L 500.2500, L100.0100 ####[facility] [address] [place], [address] Potassium [Moles/Vol] 3.6 mmol/L Normal 3.5-5.1 [facility] Comment on above: Result Comment: Slig ht Hemolysis, Result may be falsely increased. Performed By: #### L 500.2500, L100.0100 ####[facility] [address] [place], [address] Sodium [Moles/Vol] 140 mmol/L Normal 136-145 [facility] Comment on above: Performed By: #### L 500.2500, L100.0100 ####[facility] [address] [place], [address] Urea nitrogen [Mass/Vol] 17 mg/dL Normal 7-18 [facility] Comment on above: Performed By: #### L 500.2500, L100.0100 ####[facility] [address] [place], [address] Basic metabolic 2000 panelon 05-06-2024 Anion gap [Moles/Vol] 11 mmol/L Normal 8-15 [facility] Comment on above: Order Comment: Speci men Type: BLOOD SPECIMENOrdering Facility: [facility] Address: [address] [place] [address] Performed By: #### 2 432-2, ####[facility] LABORATORYCLIA [id number] [place] [address] [place] Calcium [Mass/Vol] 8.5 mg/dL Normal 8.5-10.2 [facility] Comment on above: Order Comment: Speci men Type: BLOOD SPECIMENOrdering Facility: [facility] Address: [address] [place] [address] Performed By: #### 2 4321-2, ####[facility] LABORATORYCLIA [id number] [address] Chloride [Moles/Vol] 103 mmol/L Normal 98-107 [facility] Comment on above: Order Comment: Speci men Type: BLOOD SPECIMENOrdering Facility: [facility] Address: [address] [place] [address] Performed By: #### 2 43206-01, ####[facility] LABORATORYCLIA [id number] [place] [id number] [facility] [place] CO2 [Moles/Vol] 24 mmol/L Normal 22-30 [facility] Comment on above: Order Comment: Speci men Type: BLOOD SPECIMENOrdering Facility: [facility] Address: [address] [place] [address] Performed By: #### 2 43206-01, ####[facility] LABORATORYCLIA [id number] [address] Creatinine [Mass/Vol] 0.56 mg/dL Low 0.58-0.96 [facility] Comment on above: Order Comment: Speci men Type: BLOOD SPECIMENOrdering Facility: [facility] Address: [address] [place] [address] Performed By: #### 2 4320-07, ####[facility] LABORATORYCLIA [id number] [address] Creatinine and Glomerular filtration rate.predicted panel (S/P/Bld) 91 mL/min/1.73m??? Normal >=60 [facility] Comment on above: Order Comment: Speci men Type: BLOOD SPECIMENOrdering Facility: [facility] Address: [address] [place] [address] Result Comment: Kaylene mated Glomerular Filtration Rate (eGFR) is calculated using the 2020 CKD-EPI creatinine equation. This equation utilizes serum creatinine, sex, and age as parameters. The creatinine assay has traceable calibration to isotope dilution-mass spectrometry. Refer to KDIGO guidelines for clinical interpretation. In patients with unstable renal function, e.g. those with acute kidney injury, the eGFR may not accurately reflect actual GFR. Performed By: #### 2 ####[facility] LABORATORYCLIA [id number] [place] [address] [place] Glucose [Mass/Vol] 161 mg/dL High 74-99 [facility] Comment on above: Order Comment: Speci men Type: BLOOD SPECIMENOrdering Facility: [facility] Address: [address] [place] [address] Result Comment: The [place] Diabetes Association (ADA) provides guidance for cutoff values for fasting glucose and random glucose. The ADA defines fasting as no caloric intake for at least 8 hours. Fasting plasma glucose results between 100 to 125 mg/dL indicate increased risk for diabetes (prediabetes).Fasting plasma glucose results greater than or equal to 126 mg/dL meet the criteria for diagnosis of diabetes. In the absence of unequivocal hyperglycemia, results should be confirmed by repeat testing. In a patient with classic symptoms of hyperglycemia or hyperglycemic crisis, random plasma glucose results greater than or equal to 200 mg/dL meet the criteria for diagnosis of diabetes.Reference: Standards of Medical Care in Diabetes 2016, [place] Diabetes Association. Diabetes Care. 2016.39(Suppl 1). Performed By: #### 2 ####[facility] LABORATORYCLIA [id number] [place] [address] [place] Potassium [Moles/Vol] 3.8 mmol/L Normal 3.7-5.1 [facility] Comment on above: Order Comment: Speci men Type: BLOOD SPECIMENOrdering Facility: [facility] Address: [address] [place] [address] Performed By: #### 2 ####[facility] LABORATORYCLIA [id number] [place] [address] [place] Sodium [Moles/Vol] 138 mmol/L Normal 136-144 [facility] Comment on above: Order Comment: Speci men Type: BLOOD SPECIMENOrdering Facility: [facility] Address: [address] [place] [address] Performed By: #### 2 ####[facility] LABORATORYCLIA [id number] [place] [address] [place] Urea nitrogen [Mass/Vol] 15 mg/dL Normal 7-21 [facility] Comment on above: Order Comment: Speci men Type: BLOOD SPECIMENOrdering Facility: [facility] Address: [address] [place] [address] Performed By: #### 2 4321-2, 71963-9 ####[facility] LABORATORYCLIA [id number] [place] [address] [place] Anion gap [Moles/Vol] 7 mmol/L Low 8-15 [facility] Comment on above: Order Comment: Speci men Type: BLOOD SPECIMENOrdering Facility: [facility] Address: [address] [place] [address] Performed By: #### 1 9123-9, 2777-, 81849-8 ####[facility] LABORATORYCLIA [id number] [place] [address] [place] Calcium [Mass/Vol] 3.9 mg/dL Low 8.5-10.2 [facility] Comment on above: Order Comment: Speci men Type: BLOOD SPECIMENOrdering Facility: [facility] Address: [address] [place] [address] Performed By: #### 1 9123-9, 2777-, 73137-7 ####[facility] LABORATORYCLIA [id number] [place] [address] [place] Chloride [Moles/Vol] 124 mmol/L High 98-107 [facility] Comment on above: Order Comment: Speci men Type: BLOOD SPECIMENOrdering Facility: [facility] Address: [address] [place] [address] Performed By: #### 1 9123-9, 2777, 42726-9 ####[facility] LABORATORYCLIA [id number] [place] [address] [place] CO2 [Moles/Vol] 12 mmol/L Low 22-30 [facility] Comment on above: Order Comment: Speci men Type: BLOOD SPECIMENOrdering Facility: [facility] Address: [address] [place] [address] Performed By: #### 1 9123-9, 2777-1, 79752-9 ####[facility] HOSPITALIA [id number] [place] [id number] [place] [facility] Creatinine [Mass/Vol] 0.25 mg/dL Low 0.58-0.96 [facility] Comment on above: Order Comment: Helen rg Type: BLOOD SPECIMENOrdering Facility: [facility] Address: [address] [place] [address] Performed By: #### 1 9123-9, 2777-1, 26189-8 ####[facility] HOSPITALIA [id number] [place] [id number] [facility] Creatinine and Glomerular filtration rate.predicted panel (S/P/Bld) 111 mL/min/1.73m??? Normal >=60 [facility] Comment on above: Order Comment: Helen rg Type: BLOOD SPECIMENOrdering Facility: [facility] Address: [address] [place] [address] Result Comment: Kaylene mated Glomerular Filtration Rate (eGFR) is calculated using the 2020 CKD-EPI creatinine equation. This equation utilizes serum creatinine, sex, and age as parameters. The creatinine assay has traceable calibration to isotope dilution-mass spectrometry. Refer to KDIGO guidelines for clinical interpretation. In patients with unstable renal function, e.g. those with acute kidney injury, the eGFR may not accurately reflect actual GFR. Performed By: #### 1 9123-9, 2777-1, 36694-4 ####[facility] HOSPITALIA [id number] [place] [id number] [place] Glucose [Mass/Vol] 94 mg/dL Normal 74-99 [facility] Comment on above: Order Comment: Helen rg Type: BLOOD SPECIMENOrdering Facility: [facility] Address: [address] [place] [address] Result Comment: The [place] Diabetes Association (ADA) provides guidance for cutoff values for fasting glucose and random glucose. The ADA defines fasting as no caloric intake for at least 8 hours. Fasting plasma glucose results between 100 to 125 mg/dL indicate increased risk for diabetes (prediabetes).Fasting plasma glucose results greater than or equal to 126 mg/dL meet the criteria for diagnosis of diabetes. In the absence of unequivocal hyperglycemia, results should be confirmed by repeat testing. In a patient with classic symptoms of hyperglycemia or hyperglycemic crisis, random plasma glucose results greater than or equal to 200 mg/dL meet the criteria for diagnosis of diabetes.Reference: Standards of Medical Care in Diabetes 2016, [place] Diabetes Association. Diabetes Care. 2016.39(Suppl 1). Performed By: #### 1 9123-9, 2777, 61359-9 ####[facility] LABORATORYCLIA [id number] [place] [address] [place] Potassium [Moles/Vol] 1.8 mmol/L Critically low 3.7-5.1 [facility] Comment on above: Order Comment: Helen rg Type: BLOOD SPECIMENOrdering Facility: [facility] Address: [address] [place] [address] Performed By: #### 1 9123-9, 27711-28, 94297-0 ####[facility] LABORATORYCLIA [id number] [place] [address] [place] Sodium [Moles/Vol] 143 mmol/L Normal 136-144 [facility] Comment on above: Order Comment: Helen rg Type: BLOOD SPECIMENOrdering Facility: [facility] Address: [address] [place] [address] Performed By: #### 1 9123-9, 27711-28, 57572-6 ####[facility] LABORATORYCLIA [id number] [place] [address] [place] Urea nitrogen [Mass/Vol] 8 mg/dL Normal 7-21 [facility] Comment on above: Order Comment: Helen rg Type: BLOOD SPECIMENOrdering Facility: [facility] Address: [address] [place] [address] Performed By: #### 1 9123-9, 2777, 09788-4 ####[facility] LABORATORYCLIA [id number] [place] [address] [place] Anion gap [Moles/Vol] 8 mmol/L Normal 8-15 [facility] Comment on above: Order Comment: Speci men Type: BLOOD SPECIMENOrdering Facility: [facility] Address: [address] [place] [address] Performed By: #### 2 4321-2 ####[facility]ORATORYCLIA [id number] [place] [address] [place] Calcium [Mass/Vol] 3.4 mg/dL Low 8.5-10.2 [facility] Comment on above: Order Comment: Speci men Type: BLOOD SPECIMENOrdering Facility: [facility] Address: [address] [place] [address] Performed By: #### 2 4321-2 ####[facility] LABORATORYCLIA [id number] [place] [address] [place] Chloride [Moles/Vol] 102 mmol/L Normal 98-107 [facility] Comment on above: Order Comment: Speci men Type: BLOOD SPECIMENOrdering Facility: [facility] Address: [address] [place] [address] Performed By: #### 2 4321-2 ####[facility] LABORATORYCLIA [id number] [address] [place] CO2 [Moles/Vol] 10 mmol/L Low 22-30 [facility] Comment on above: Order Comment: Speci men Type: BLOOD SPECIMENOrdering Facility: [facility] Address: [address] [place] [address] Performed By: #### 2 4321-2 ####[facility]ORATORYCLIA [id number] [place] [address] [place] Creatinine [Mass/Vol] 0.25 mg/dL Low 0.58-0.96 [facility] Comment on above: Order Comment: Speci men Type: BLOOD SPECIMENOrdering Facility: [facility] Address: [address] [place] [address] Performed By: #### 2 4321-2 ####[facility] LABORATORYCLIA [id number] [place] [address] [place] Creatinine and Glomerular filtration rate.predicted panel (S/P/Bld) 111 mL/min/1.73m??? Normal >=60 [facility] Comment on above: Order Comment: Helen rg Type: BLOOD SPECIMENOrdering Facility: [facility] Address: [address] [place] [address] Result Comment: Kaylene mated Glomerular Filtration Rate (eGFR) is calculated using the 2020 CKD-EPI creatinine equation. This equation utilizes serum creatinine, sex, and age as parameters. The creatinine assay has traceable calibration to isotope dilution-mass spectrometry. Refer to KDIGO guidelines for clinical interpretation. In patients with unstable renal function, e.g. those with acute kidney injury, the eGFR may not accurately reflect actual GFR. Performed By: #### 2 4321-2 ####[facility] SERVICESCLIA [id number] [place] [address] [place] Glucose [Mass/Vol] 85 mg/dL Normal 74-99 [facility] Comment on above: Order Comment: Helen rg Type: BLOOD SPECIMENOrdering Facility: [facility] Address: [address] [place] [address] Result Comment: The [place] Diabetes Association (ADA) provides guidance for cutoff values for fasting glucose and random glucose. The ADA defines fasting as no caloric intake for at least 8 hours. Fasting plasma glucose results between 100 to 125 mg/dL indicate increased risk for diabetes (prediabetes).Fasting plasma glucose results greater than or equal to 126 mg/dL meet the criteria for diagnosis of diabetes. In the absence of unequivocal hyperglycemia, results should be confirmed by repeat testing. In a patient with classic symptoms of hyperglycemia or hyperglycemic crisis, random plasma glucose results greater than or equal to 200 mg/dL meet the criteria for diagnosis of diabetes.Reference: Standards of Medical Care in Diabetes 2016, [place] Diabetes Association. Diabetes Care. 2016.39(Suppl 1). Performed By: #### 2 4321-2 ####[facility] LABORATORYCLIA [id number] [place] [id number] [place] Potassium [Moles/Vol] 1.7 mmol/L Critically low 3.7-5.1 [facility] Comment on above: Order Comment: Helen rg Type: BLOOD SPECIMENOrdering Facility: [facility] Address: [address] [place] [id number] Performed By: #### 2 4321-2 ####[facility] LABORATORYCLIA [id number] [place] [address] [place] Sodium [Moles/Vol] 120 mmol/L Low 136-144 [facility] Comment on above: Order Comment: Speci men Type: BLOOD SPECIMENOrdering Facility: [facility] Address: [address] [place] [address] Performed By: #### 2 4321-2 ####[facility] LABORATORYCLIA [id number] [place] [id number] [place] Urea nitrogen [Mass/Vol] 8 mg/dL Normal 7-21 [facility] Comment on above: Order Comment: Speci men Type: BLOOD SPECIMENOrdering Facility: [facility] Address: [address] [place] [address] Performed By: #### 2 4321-2 ####[facility] LABORATORYCLIA [id number] [place] [id number] [place] CBC W/Diff, Automatedon 12-0 7-2023 Absolute Lymph 1.89 X10 3/uL Normal 0.83-4.51 [facility] Comment on above: Performed By: #### L 500.2500, L100.0100 ####[facility] [address] [place], [address] Absolute Neut 4.9 X10 3/uL Normal 2.0-7.7 [facility] Comment on above: Performed By: #### L 500.2500, L100.0100 ####[facility] [address] [place], [address] Basophils/100 WBC (Bld) 0.6 % Normal 0-1 [facility] Comment on above: Performed By: #### L 500.2500, L100.0100 ####[facility] [address] [place], [address] Eosinophils/100 WBC (Bld) 2.6 % Normal 0-5 [facility] Comment on above: Performed By: #### L 500.2500, L100.0100 ####[facility] [address] [place], [address] Erythrocyte distribution width (RBC) [Ratio] 15.9 % High 11.6-14.6 [facility] Comment on above: Performed By: #### L 500.2500, L100.0100 ####[facility] [address] [place], [address] Hematocrit (Bld) [Volume fraction] 36.9 % Low 37-47 [facility] Comment on above: Performed By: #### L 500.2500, L100.0100 ####[facility] [address] [place], [address] Hemoglobin (Bld) [Mass/Vol] 11.4 g/dL Low 12.0-15.0 [facility] Comment on above: Performed By: #### L 500.2500, L100.0100 ####[facility] [address] [place], [address] IG% 1.500 High 0.0-0.9 [facility] Comment on above: Result Comment: IG% - Immature Granulocytes (promyelocytes, myelocytes andmetamyelocytes) > 1% indicates that a LEFT SHIFT is Present. Performed By: #### L 500.2500, L100.0100 ####[facility] [address] [place], [address] Lymphocytes/100 WBC (Bld) 23.6 % Normal 19-41 [facility] Comment on above: Performed By: #### L 500.2500, L100.0100 ####[facility] [address] [place], [address] MCH (RBC) [Entitic mass] 28.6 pg Normal 27.0-32.0 [facility] Comment on above: Performed By: #### L 500.2500, L100.0100 ####[facility] [address] [place], [address] MCHC (RBC) [Mass/Vol] 30.9 g/dL Low 32-36 [facility] Comment on above: Performed By: #### L 500.2500, L100.0100 ####[facility] [address] [place], [address] MCV (RBC) [Entitic vol] 92.5 fL Normal 81-99 [facility] Comment on above: Performed By: #### L 500.2500, L100.0100 ####[facility] [address] [place], [address] Monocytes/100 WBC (Bld) 10.4 % High 0-10 [facility] Comment on above: Performed By: #### L 500.2500, L100.0100 ####[facility] [address] [place], [address] Neutrophils/100 WBC (Bld) 61.3 % Normal 47-70 [facility] Comment on above: Performed By: #### L 500.2500, L100.0100 ####[facility] [address] [place], [address] Nucleated RBC (Bld) [#/Vol] 0 10*3/uL Normal 0-5 [facility] Comment on above: Performed By: #### L 500.2500, L100.0100 ####[facility] [address] [place], [address] Platelet mean volume (Bld) [Entitic vol] 10.7 fL Normal 6.2-12.0 [facility] Comment on above: Performed By: #### L 500.2500, L100.0100 ####[facility] [address] [place], [address] Platelets (Bld) [#/Vol] 373 10*3/uL Normal 150-450 [facility] Comment on above: Performed By: #### L 500.2500, L100.0100 ####[facility] [address] [place], [address] RBC (Bld) [#/Vol] 3.99 10*6/uL Low 4.2-5.4 [facility] Comment on above: Performed By: #### L 500.2500, L100.0100 ####[facility] [address] [place], [address] RDW SD 54.1 fl High 35.1-43.9 [facility] Comment on above: Performed By: #### L 500.2500, L100.0100 ####[facility] [address] [place], [address] WBC (Bld) [#/Vol] 8.0 10*3/uL Normal 4.4-11.0 [facility] Comment on above: Performed By: #### L 500.2500, L100.0100 ####[facility] [address] [place], [address] CBC panel Auto (Bld)on 05-06 Erythrocyte distribution width (RBC) [Ratio] 15.7 % High 11.5-15.0 [facility] Comment on above: Order Comment: Speci men Type: BLOOD SPECIMENOrdering Facility: [facility] Address: [address] [place] [address] Performed By: #### 5 8410-2 ####[facility] LABORATORYCLIA [id number] [place] [address] [place] Hematocrit (Bld) [Volume fraction] 29.8 % Low 36.0-46.0 [facility] Comment on above: Order Comment: Speci men Type: BLOOD SPECIMENOrdering Facility: [facility] Address: [address] [place] [address] Performed By: #### 5 8410-2 ####[facility] LABORATORYCLIA [id number] [address] Hemoglobin (Bld) [Mass/Vol] 9.4 g/dL Low 11.5-15.5 [facility] Comment on above: Order Comment: Speci men Type: BLOOD SPECIMENOrdering Facility: [facility] Address: [address] [place] [address] Performed By: #### 5 8410-2 ####[facility] LABORATORYCLIA [id number] [address] [facility] MCH (RBC) [Entitic mass] 29.7 pg Normal 26.0-34.0 [facility] Comment on above: Order Comment: Speci men Type: BLOOD SPECIMENOrdering Facility: [facility] Address: [address] [place] [address] Performed By: #### 5 8410-2 ####[facility] LABORATORYCLIA [id number] [address] MCHC (RBC) [Mass/Vol] 31.5 g/dL Normal 30.5-36.0 [facility] Comment on above: Order Comment: Speci men Type: BLOOD SPECIMENOrdering Facility: [facility] Address: [address] [place] [address] Performed By: #### 5 8410-2 ####[facility] LABORATORYCLIA [id number] [address] MCV (RBC) [Entitic vol] 94.0 fL Normal 80.0-100.0 [facility] Comment on above: Order Comment: Speci men Type: BLOOD SPECIMENOrdering Facility: [facility] Address: [address] [place] [address] Performed By: #### 5 8410-2 ####[facility] LABORATORYCLIA [id number] [address] [facility] Nucleated RBC (Bld) [#/Vol] 10*3/uL Normal <0.01 [facility] Comment on above: Order Comment: Speci men Type: BLOOD SPECIMENOrdering Facility: [facility] Address: [address] [place] [address] Performed By: #### 5 8410-2 ####[facility] LABORATORYCLIA [id number] [place] [address] [place] Platelet mean volume (Bld) [Entitic vol] 10.6 fL Normal 9.0-12.7 [facility] Comment on above: Order Comment: Speci men Type: BLOOD SPECIMENOrdering Facility: [facility] Address: [address] [place] [address] Performed By: #### 5 8410-2 ####[facility] LABORATORYCLIA [id number] [address] [place] Platelets (Bld) [#/Vol] 283 10*3/uL Normal 150-400 [facility] Comment on above: Order Comment: Speci men Type: BLOOD SPECIMENOrdering Facility: [facility] Address: [address] [place] [address] Performed By: #### 5 8410-2 ####[facility] LABORATORYCLIA [id number] [place] [address] [place] RBC (Bld) [#/Vol] 3.17 10*6/uL Low 3.90-5.20 [facility] Comment on above: Order Comment: Speci men Type: BLOOD SPECIMENOrdering Facility: [facility] Address: [address] [place] [address] Performed By: #### 5 8410-2 ####[facility] LABORATORYCLIA [id number] [place] [address] [place] WBC (Bld) [#/Vol] 10.85 10*3/uL Normal 3.70-11.00 [facility] Comment on above: Order Comment: Speci men Type: BLOOD SPECIMENOrdering Facility: [facility] Address: [address] [place] [address] Performed By: #### 5 8410-2 ####[facility] LABORATORYCLIA [id number] [address] Erythrocyte distribution width (RBC) [Ratio] 15.9 % High 11.5-15.0 [facility] Comment on above: Order Comment: Speci men Type: BLOOD SPECIMENOrdering Facility: [facility] Address: [address] [place] [address] Performed By: #### 5 8410-2 ####[facility] LABORATORYCLIA [id number] [address] Hematocrit (Bld) [Volume fraction] 34.0 % Low 36.0-46.0 [facility] Comment on above: Order Comment: Speci men Type: BLOOD SPECIMENOrdering Facility: [facility] Address: [address] [place] [address] Performed By: #### 5 8410-2 ####[facility] LABORATORYCLIA [id number] [address] Hemoglobin (Bld) [Mass/Vol] 10.7 g/dL Low 11.5-15.5 [facility] Comment on above: Order Comment: Speci men Type: BLOOD SPECIMENOrdering Facility: [facility] Address: [address] [place] [address] Performed By: #### 5 8410-2 ####[facility] LABORATORYCLIA [id number] [address] STATES [facility] MCH (RBC) [Entitic mass] 29.5 pg Normal 26.0-34.0 [facility] Comment on above: Order Comment: Speci men Type: BLOOD SPECIMENOrdering Facility: [facility] Address: [address] [place] [address] Performed By: #### 5 8410-2 ####[facility] LABORATORYCLIA [id number] [address] STATES [facility] MCHC (RBC) [Mass/Vol] 31.5 g/dL Normal 30.5-36.0 [facility] Comment on above: Order Comment: Speci men Type: BLOOD SPECIMENOrdering Facility: [facility] Address: [address] [place] [address] Performed By: #### 5 8410-2 ####[facility] LABORATORYCLIA [id number] [address] OF [place] MCV (RBC) [Entitic vol] 93.7 fL Normal 80.0-100.0 [facility] Comment on above: Order Comment: Speci men Type: BLOOD SPECIMENOrdering Facility: [facility] Address: [address] [place] [address] Performed By: #### 5 8410-2 ####[facility] LABORATORYCLIA [id number] [address] OF [place] Nucleated RBC (Bld) [#/Vol] 10*3/uL Normal <0.01 [facility] Comment on above: Order Comment: Speci men Type: BLOOD SPECIMENOrdering Facility: [facility] Address: [address] [place] [address] Performed By: #### 5 8410-2 ####[facility] LABORATORYCLIA [id number] [address] OF [facility] Platelet mean volume (Bld) [Entitic vol] 11.2 fL Normal 9.0-12.7 [facility] Comment on above: Order Comment: Speci men Type: BLOOD SPECIMENOrdering Facility: [facility] Address: [address] [place] [address] Performed By: #### 5 8410-2 ####[facility] LABORATORYCLIA [id number] [address] Platelets (Bld) [#/Vol] 355 10*3/uL Normal 150-400 [facility] Comment on above: Order Comment: Speci men Type: BLOOD SPECIMENOrdering Facility: [facility] Address: [address] [place] [address] Performed By: #### 5 8410-2 ####[facility] LABORATORYCLIA [id number] [address] [place] RBC (Bld) [#/Vol] 3.63 10*6/uL Low 3.90-5.20 [facility] Comment on above: Order Comment: Speci men Type: BLOOD SPECIMENOrdering Facility: [facility] Address: [address] [place] [address] Performed By: #### 5 8410-2 ####[facility] LABORATORYCLIA [id number] [place] [address] [place] WBC (Bld) [#/Vol] 12.97 10*3/uL High 3.70-11.00 [facility] Comment on above: Order Comment: Speci men Type: BLOOD SPECIMENOrdering Facility: [facility] Address: [address] [place] [address] Performed By: #### 5 8410-2 ####[facility] LABORATORYCLIA [id number] [address] [place] CONSULTon 05-06-2024 CONSULT Normal [facility] CONSULT Normal [facility] CONSULT Normal [facility] CT ABD/PEL W IVCONon 024 CT ABD/PEL W IVCON Normal [facility] CT BRAIN WO IVCONon 05-06-[address] BRAIN WO IVCON Normal [facility] CT BRAIN WO IVCON Invalid Interpretation Code [facility] Calcium.ionized [Moles/Vol]o n 05-06-2024 Calcium.ionized (BldV) [Mass/Vol] 0.96 mmol/L Low 1.08-1.30 [facility] Comment on above: Order Comment: Speci men Type: BLOOD SPECIMENOrdering Facility: [facility] Address: [address] [place] [address] Performed By: #### 1 995-0 ####[facility] LABORATORYCLIA [id number] [address] OF [facility] Calcium.ionized adjusted to pH 7.4 (Bld) [Moles/Vol] 0.91 mmol/L Low 1.08-1.30 [facility] Comment on above: Order Comment: Speci men Type: BLOOD SPECIMENOrdering Facility: [facility] Address: [address] [place] [address] Performed By: #### 1 995-0 ####[facility] LABORATORYCLIA [id number] [place] [address] [facility] ED NOTEon 05-06-2024 ED NOTE HNO ID: [id number] Author: RADHAMES YU RN Service: ? Author Type: Registered Nurse Type: ED Notes Filed: 05/06/2024 07:05 Note Text: Report given to Earline GUEVARA [facility] ED NOTE HNO ID: [id number] Author: WILBERT YOUNG RN Service: ? Author Type: Registered Nurse Type: ED Notes Filed: 05/06/2024 06:52 Note Text: Lab called this RN and needed a redraw for global hemostasis with lysis r/t time it took to arrive in lab. [facility] ED NOTE HNO ID: [id number] Author: RADHAMES YU RN Service: ? Author Type: Registered Nurse Type: ED Notes Filed: 05/06/2024 04:47 Note Text: Surgery resident and ortho resident at bedside. Knee immobilizer placed on pt by ortho resident [facility] ED NOTE HNO ID: [id number] Author: RADHAMES YU RN Service: ? Author Type: Registered Nurse Type: ED Notes Filed: 05/06/2024 04:17 Note Text: CT after Feiba [facility] ED NOTE HNO ID: [id number] Author: RADHAMES YU RN Service: ? Author Type: Registered Nurse Type: ED Notes Filed: 05/06/2024 03:49 Note Text: Pt returned from CT. ROLL CARRIER with pt at this time [facility] ED NOTE HNO ID: [id number] Author: HEIDY TAVERAS RN Service: ? Author Type: Registered Nurse Type: ED Notes Filed: 05/06/2024 03:38 Note Text: Pharmacy notified, preparing FEIBA at this time. [facility] ED NOTE HNO ID: [id number] Author: RADHAMES YU RN Service: ? Author Type: Registered Nurse Type: ED Notes Filed: 05/06/2024 03:31 Note Text: CT notified [facility] ED NOTE HNO ID: [id number] Author: HEIDY TAVERAS RN Service: ? Author Type: Registered Nurse Type: ED Notes Filed: 05/06/2024 03:20 Note Text: Neurosurgery provider at bedside speaking w daughter / POA. Pt in XR at this time. Normal [facility] ED NOTE HNO ID: [id number] Author: CAROL MOTA RN Service: Nursing Author Type: Registered Nurse Type: ED Notes Filed: 05/06/2024 03:15 Note Text: Report given to ISMAEL Jacobo. Normal [facility] ED NOTE HNO ID: [id number] Author: CAROL MOTA RN Service: Nursing Author Type: Registered Nurse Type: ED Notes Filed: 05/06/2024 02:44 Note Text: XR notified pt is ready for scan. Normal [facility] ED PROV NOTEon 05-06-2024 ED PROV NOTE Normal [facility] ED PROV NOTE Normal [facility] GLOBAL HEMOSTASIS WITH LYSIS on 05-06-2024 Clot Lysis 30 Min post maximum clot amplitude TEG (Bld) [Length fraction] 0.0 % Normal 0.0-2.6 [facility] Comment on above: Order Comment: Speci men Type: BLOOD SPECIMENOrdering Facility: [facility] Address: [address] [place] [address] Performed By: #### T EGLYS ####[facility] LABORATORYCLIA [id number] [address] [place] Clotting time.extrinsic coagulation system activated Rotational TEG (Bld) 4.5 minutes Low 4.6-9.1 [facility] Comment on above: Order Comment: Speci men Type: BLOOD SPECIMENOrdering Facility: [facility] Address: [address] [place] [address] Performed By: #### T EGLYS ####[facility] LABORATORYCLIA [id number] [address] [place] Maximum clot firmness.extrinsic coagulation system activated.platelets inhibited Rotational TEG (Bld) [Length] 67.3 mm Normal 52.0-70.0 [facility] Comment on above: Order Comment: Speci men Type: BLOOD SPECIMENOrdering Facility: [facility] Address: [address] [place] [address] Result Comment: 29.3 Performed By: #### T EGLYS ####[facility] LABORATORYCLIA [id number] [address] [place] THROMBOGRAPH INTERP Normal [facility] Comment on above: Order Comment: Helen ifrah Type: BLOOD SPECIMENOrdering Facility: [facility] Address: [address] [place] [address] Result Comment: A th romboelastograph (TEG) study was performed using citrate-anticoagulated whole blood. The R value, a measure of coagulation function, is short. This indicates coagulation hyperfunction. This could be seen with high levels of coagulation factors, coagulation activation, or inadequate anticoagulation. The Ly30, a measure of fibrinolysis, is normal. This is indicative of normal fibrinolytic function. The Maximal Amplitude (MA), a measure of platelet function, is within the normal range. The fibrinogen contribution clot formation is normal.This test is not recommended for patients on heparin.Viscoelastic testing is not intended for the monitoring of anticoagulation or antiplatelet medications or the diagnosis and/or management of platelet disorders and/or coagulopathies but may be useful for guiding blood product utilization in emergency and urgent (OR) circumstances when routine coagulation and cell blood counts are not available in a timely manner. Performed By: #### T EGLYS ####[facility] LABORATORYCLIA [id number] [address] [place] HISTORY PHYSICALon HISTORY PHYSICAL Normal [facility] HISTORY PHYSICAL Normal [facility] Magnesium SerPl-mCncon 05-06 Magnesium [Mass/Vol] 1.8 mg/dL Normal 1.7-2.3 [facility] Comment on above: Order Comment: Helen rg Type: BLOOD SPECIMENOrdering Facility: [facility] Address: [address] [place] [address] Performed By: #### 2 4321-2, 56864-5 ####[facility] LABORATORYCLIA [id number] [address] Magnesium [Mass/Vol] 0.8 mg/dL Low 1.7-2.3 [facility] Comment on above: Order Comment: Helen rg Type: BLOOD SPECIMENOrdering Facility: [facility] Address: [address] [place] [address] Performed By: #### 1 9123-9, 2777-1, 78946-9 ####[facility] LABORATORYCLIA [id number] [address] OF [facility] OPERATIVE NOon 05-06-2024 OPERATIVE NO Normal [facility] PT panel Coag (PPP)on 2023 INR Coag (PPP) [Relative time] {INR} Low 0.9-1.3 [facility] Comment on above: Order Comment: Helen rg Type: BLOOD SPECIMENOrdering Facility: [facility] Address: [address] [place] [address] Result Comment: Ofelia min K Antagonist (VKA) Therapeutic Range: INR 2 to 3 (Target INR of 2.5)Note: For patients treated with VKA drugs, such as warfarin, the [employer] 2012 Guideline recommends a therapeutic INR range of 2 to 3 (target INR of 2.5). This recommendation includes high-risk patients with antiphospholipid syndrome with previous arterial or venous thromboembolism, current-generation mechanical or bioprosthetic aortic heart valve replacement.Note: Patients with mechanical aortic valve replacement and additional risk factors for thromboembolic events (atrial fibrillation, previous thromboembolism, LV dysfunction, hypercoagulable conditions) or an older generation mechanical AVR (i.e., ball in-Cage) or any mechanical MVR should have a INR therapeutic range of 2.5 to 3.5 (target INR of 3).Terry ROCHA, et al. Chest 2012, 141:7S-47SNishimkatie RA, et al. JACC 2017, 70: 252-289 Performed By: #### 3 4528-0 ####[facility] LABORATORYCLIA [id number] [address] [place] PT Coag (PPP) [Time] 9.5 s Low 9.7-13.0 [facility] Comment on above: Order Comment: Helen rg Type: BLOOD SPECIMENOrdering Facility: [facility] Address: [address] [place] [id number] Performed By: #### 3 4528-0 ####[facility] LABORATORYCLIA [id number] [place] [address] [place] Partial Thromboplast Timeon 05-06-2024 aPTT Coag (Bld) [Time] 26.8 s Normal 24.1-36.2 [facility] Comment on above: Performed By: #### L 300.4310, L300.3900 ####[facility] [address] [place], [address] Phosphate SerPl-mCncon 05-06 Phosphate [Mass/Vol] 1.7 mg/dL Low 2.7-4.8 [facility] Comment on above: Order Comment: Speci men Type: BLOOD SPECIMENOrdering Facility: [facility] Address: [address] [place] [address] Performed By: #### 1 9123-9, 2777-1, 89743-1 ####[facility] LABORATORYCLIA [id number] [place] [address] [place] Prothrombin Time w/INRon INR Coag (PPP) [Relative time] 1.1 {INR} Normal [facility] Comment on above: Performed By: #### L 300.4310, L300.3900 ####[facility] [address] [place], [address] PT Coag (PPP) [Time] 14.1 s Normal 11.7-14.9 [facility] Comment on above: Performed By: #### L 300.4310, L300.3900 ####[facility] [address] [place], [address] STAPHYLOCOCCUS AUREUS AND MR SA SCREEN, PCR, NASALon 05-06-2024 S. aureus and MRSA panel ANKIT+probe (Nose) Not detected Normal Not Detected [facility] Comment on above: Order Comment: Speci men Type: SWABOrdering Facility: [facility] Address: [address] [place] [address] Performed By: #### S APCR ####[facility] LABORATORYCLIA [id number] [place] [id number] [facility] TYPE + SCREENon 05-06-2024 ABO O Normal [facility] Comment on above: Order Comment: Speci men Type: BLOOD SPECIMENOrdering Facility: [facility] Address: [address] [place] [address] Performed By: #### T SCR ####[facility] BLOOD BANKCLIA [id number] [address] [place] Rh Nom (Bld) Positive Normal [facility] Comment on above: Order Comment: Speci men Type: BLOOD SPECIMENOrdering Facility: [facility] Address: [address] [place] [address] Performed By: #### T SCR ####[facility] BLOOD BANKCLIA [id number] [address] TYPE AND SCREEN EXPIRATION 05/09/2024 23:59 Normal [facility] Comment on above: Order Comment: Speci men Type: BLOOD SPECIMENOrdering Facility: [facility] Address: [address] [place] [address] Performed By: #### T SCR ####[facility] BLOOD BANKCLIA [id number] [address] OF [place] XR ANKLE 3V AP/LAT/OBL LTon 05-06-2024 XR ANKLE 3V AP/LAT/OBL LT Normal [facility] XR CHEST 1V FRONTALon 2023 XR CHEST 1V FRONTAL Normal [facility] XR FEMUR 2V AP/LAT LTon XR FEMUR 2V AP/LAT LT Normal [facility] XR HIP 3V PELV+ AP/LAT LTon 05-06-2024 XR HIP 3V PELV+ AP/LAT LT Normal [facility] XR HIP 3V PELV+ AP/LAT RTon 05-06-2024 XR HIP 3V PELV+ AP/LAT RT Normal [facility] aPTT PPPon 05-06-2024 aPTT Coag (PPP) [Time] 27.0 s Normal 23.0-32.4 [facility] Comment on above: Order Comment: Speci men Type: BLOOD SPECIMENOrdering Facility: [facility] Address: [address] [place] [address] Performed By: #### 1 4979-9 ####[facility] LABORATORYCLIA [id number] [place] [address] [place] 25-hydroxyvitamin D3 [Mass/V ol]on 05-05-2024 Interpretation and review of laboratory results Normal [facility] The reference range interval was based on an analysis of samples from healthy adults and may not pertain to children from 0-[address] [facility] Absolute neutrophil countOrd ered By: Arden Leger on 05-05-2024 Neutrophils (Bld) [#/Vol] 4.9 10*3/uL 2.0-7.7 [facility] Basophil percentageOrdered B y: Arden Leger on 05-05-2024 Basophils/100 WBC (Bld) 0.6 % 0-1 [facility] Blood urea nitrogen (BUN)/cr eatinine ratioOrdered By: Arden Leger on 05-05-2024 Urea nitrogen/Creatinine [Mass ratio] 29.7 mg/mg High 10-20 [facility] Brain/Head without Contrasto n 05-05-2024 Brain/Head without Contrast Normal [facility] CBC panel Auto (Bld)on 05-05 Erythrocyte distribution width (RBC) [Ratio] 16.0 % High 11.5 - 15.0 % [facility] Hematocrit (Bld) [Volume fraction] 38.2 % 36.0 - 46.0 % [facility] Hemoglobin (Bld) [Mass/Vol] 12.1 g/dL 11.5 - 15.5 g/dL [facility] Interpretation and review of laboratory results Abnormal [facility] MCH (RBC) [Entitic mass] 28.8 pg 26.0 - 34.0 pg [facility] MCHC (RBC) [Mass/Vol] 31.7 g/dL 30.5 - 36.0 g/dL [facility] MCV (RBC) [Entitic vol] 91.0 fL 80.0 - 100.0 fL [facility] Nucleated RBC (Bld) [#/Vol] NINF [facility] Platelet mean volume (Bld) [Entitic vol] 10.0 fL 9.0 - 12.7 fL [facility] Platelets (Bld) [#/Vol] 362 10*3/uL [facility] RBC (Bld) [#/Vol] 4.20 10*6/uL 3.90 - 5.2 0 m/uL [facility] WBC (Bld) [#/Vol] 6.62 10*3/uL [facility] Carbon dioxide measurementOr dered By: Arden Leger on 05-05-2024 CO2 [Moles/Vol] 24.0 mmol/L 21.0-32.0 [facility] Chloride measurementOrdered By: Arden Leger on 05-05-2024 Chloride [Moles/Vol] 109 mmol/L High 98-107 [facility] Cobalamin (Vitamin B12) [Mas s/Vol]on 05-05-2024 Interpretation and review of laboratory results Normal [facility] Comprehensive metabolic 2000 panelOrdered By: Hayley Mark on 05-05-2024 Albumin [Mass/Vol] 3.6 g/dL Low 3.9 - 4.9 g/dL [facility] ALP [Catalytic activity/Vol] 147 U/L High 34 - 123 U/L [facility] ALT [Catalytic activity/Vol] 9 U/L 7 - 38 U/L [facility] Anion gap [Moles/Vol] 14 mmol/L 8 - 15 mmol/L [facility] AST [Catalytic activity/Vol] 15 U/L 13 - 35 U/L [facility] Bilirubin [Mass/Vol] 0.2 mg/dL 0.2 - 1 .3 mg/dL [facility] Calcium [Mass/Vol] 9.7 mg/dL 8.5 - 10. 2 mg/dL [facility] Chloride [Moles/Vol] 102 mmol/L 98 - 10 7 mmol/L [facility] CO2 [Moles/Vol] 22 mmol/L 22 - 30 mmol/L [facility] Creatinine [Mass/Vol] 0.59 mg/dL 0.58 - 0.96 mg/dL [facility] GFR/1.73 sq M.predicted among non-blacks MDRD (S/P/Bld) [Vol rate/Area] 90 mL/min/{1.73_m2} - PINF [facility] Comment on above: Estimated Glomerular Filtration Rate (eGFR) is calculated using the 2020 CKD-EPI creatinine equation. This equation utilizes serum creatinine, sex, and age as parameters. The creatinine assay has traceable calibration to isotope dilution-mass spectrometry. Refer to KDIGO guidelines for clinical interpretation. In patients with unstable renal function, e.g. those with acute kidney injury, the eGFR may not accurately reflect actual GFR. Glucose [Mass/Vol] 164 mg/dL High 74 - 99 mg/dL [facility] Comment on above: The [place] Diab[employer] s Association (ADA) provides guidance for cutoff values for fasting glucose and random glucose. The ADA defines fasting as no caloric intake for at least 8 hours. Fasting plasma glucose results between 100 to 125 mg/dL indicate increased risk for diabetes (prediabetes). Fasting plasma glucose results greater than or equal to 126 mg/dL meet the criteria for diagnosis of diabetes. In the absence of unequivocal hyperglycemia, results should be confirmed by repeat testing. In a patient with classic symptoms of hyperglycemia or hyperglycemic crisis, random plasma glucose results greater than or equal to 200 mg/dL meet the criteria for diagnosis of diabetes. Reference: Standards of Medical Care in Diabetes 2016, [place] [employer]. Diabetes Care. 2016.39(Suppl 1). Interpretation and review of laboratory results Abnormal [facility] Potassium [Moles/Vol] 3.8 mmol/L 3.7 - 5.1 mmol/L [facility] Protein [Mass/Vol] 6.8 g/dL 6.3 - 8.0 g/dL [facility] Sodium [Moles/Vol] 138 mmol/L 136 - 144 mmol/L [facility] Urea nitrogen [Mass/Vol] 18 mg/dL 7 - 21 mg/dL [facility] Emergency Department Summary on 05-05-2024 Emergency Department Summary Normal [facility] Eosinophil percentageOrdered By: Arden Leger on 05-05-2024 Eosinophils/100 WBC (Bld) 2.6 % 0-5 [facility] Erythrocyte distribution wid th (RBC) [Ratio]Ordered By: Arden Leger on 05-05-2024 Erythrocyte distribution width (RBC) [Entitic vol] 54.1 fL High 35.1-43.9 [facility] Erythrocyte distribution wid th ratioOrdered By: Arden Leger on 05-05-2024 Erythrocyte distribution width (RBC) [Ratio] 15.9 % High 11.6-14.6 [facility] Estimated glomerular filtrat ion rate (GFR) AmericanOrdered By: Arden Leger on 05-05-2024 Estimated GFR (MDRD) Amer 130 mL/min >60 [facility] Comment on above: GFR Calc Estimation of creatinine gin aranceOrdered By: Arden Leger on 05-05-2024 Estimated Creatinine Clearance Calc 60.00 ml/min [facility] Glomerular filtration rate ( GFR) estimationOrdered By: Arden Leger on 05-05-2024 Estimated GFR (MDRD) Non-Af Amer 107 mL/min >60 [facility] Comment on above: Non- GFR Calc Glucose measurementOrdered B y: Arden Legre on 05-05-2024 Glucose [Mass/Vol] 134 mg/dL High 74-106 [facility] Comment on above: Fasting Glucose resu lt greater than or equal to 126 mg/dL suggests DIABETES MELLITUS per A.D.A. criteria. Hematocrit Auto (Bld) [Volum e fraction]Ordered By: Arden Leger on 05-05-2024 Hematocrit (Bld) [Volume fraction] 36.9 % Low 37-47 [facility] Hemoglobin measurementOrdere d By: Arden Leger on 05-05-2024 Hemoglobin (Bld) [Mass/Vol] 11.4 g/dL Low 12.0-15.0 [facility] Immature granulocytes/100 WB C Auto (Bld)Ordered By: Arden Leger on 05-05-2024 Immature granulocytes/100 WBC (Bld) 1.500 % High 0.0-0.9 [facility] Comment on above: IG% - Immature Granu locytes (promyelocytes, myelocytes and metamyelocytes) > 1% indicates that a LEFT SHIFT is Present. International normalized rat io (INR) calculationOrdered By: Arden Leger on 05-05-2024 INR Coag (Bld) [Relative time] 1.1 {INR} [facility] Lymphocytes Auto (Unsp spec) [#/Vol]Ordered By: Arden Leger on 05-05-2024 Lymphocytes (Bld) [#/Vol] 1.89 10*3/uL 0.83-4.51 [facility] Lymphocytes/100 WBC Auto (Un sp spec)Ordered By: Arden Leger on 05-05-2024 Lymphocytes/100 WBC (Bld) 23.6 % 19-41 [facility] MCV (mean corpuscular volume ) determinationOrdered By: Arden Leger on 05-05-2024 MCV (RBC) [Entitic vol] 92.5 fL 81-99 [facility] Mean corpuscular hemoglobin (MCH) determinationOrdered By: Arden Leger on 05-05-2024 MCH (RBC) [Entitic mass] 28.6 pg 27.0-32.0 [facility] Mean corpuscular hemoglobin concentration (MCHC) determinationOrdered By: Arden Leger on 05-05-2024 MCHC (RBC) [Mass/Vol] 30.9 g/dL Low 32-36 [facility] Mean platelet volume determi nationOrdered By: Arden Leger on 05-05-2024 Platelet mean volume (Bld) [Entitic vol] 10.7 fL 6.2-12.0 [facility] Monocyte percentageOrdered B y: Arden Leger on 05-05-2024 Monocytes/100 WBC (Bld) 10.4 % High 0-10 [facility] Neutrophil percentageOrdered By: Arden Leger on 05-05-2024 Neutrophils/100 WBC (Bld) 61.3 % 47-70 [facility] Nucleated red blood cell per centageOrdered By: Arden Leger on 05-05-2024 Nucleated RBC/100 WBC (Bld) [Ratio] 0 % 0-5 [facility] Platelet countOrdered By: Hilton Leger on 05-05-2024 Platelets (Bld) [#/Vol] 373 10*3/uL 150-450 [facility] Potassium measurementOrdered By: Arden Leger on 05-05-2024 Potassium [Moles/Vol] 3.6 mmol/L 3.5-5.1 [facility] Comment on above: Slight Hemolysis, Re sult may be falsely increased. Prothrombin timeOrdered By: Arden Leger on 05-05-2024 PT Coag (PPP) [Time] 14.1 s 11.7-14.9 [facility] RBC Auto (Bld) [#/Vol]Ordere d By: Arden Leger on 05-05-2024 RBC (Bld) [#/Vol] 3.99 10*6/uL Low 4.2-5.4 [facility] Serum anion gap measurementO rdered By: Arden Leger on 05-05-2024 Anion gap [Moles/Vol] 7 mmol/L 5-15 [facility] Serum or plasma calcium jessi urement (mass/volume)Ordered By: Arden Leger on 05-05-2024 Calcium [Mass/Vol] 8.6 mg/dL 8.5-10.1 [facility] Serum or plasma creatinine m easurement (mass/volume)Ordered By: Arden Leger on 05-05-2024 Creatinine [Mass/Vol] 0.57 mg/dL 0.55-1.02 [facility] Comment on above: The validity of the calculated GFR & GFRAA in patients over 70 years has not been determined. Clinical correlation is essential. Serum or plasma urea nitroge n measurement (mass/volume)Ordered By: Arden Leger on 05-05-2024 Urea nitrogen [Mass/Vol] 17 mg/dL 7-18 [facility] Sodium levelOrdered By: Arden Leger on 05-05-2024 Sodium [Moles/Vol] 140 mmol/L 136-145 [facility] Spine Cervical without Contr ason 05-05-2024 Spine Cervical without Contras Normal [facility] Spine Lumbar without Contras ton 05-05-2024 Spine Lumbar without Contrast Normal [facility] Spine Thoracic without Contr ason 05-05-2024 Spine Thoracic without Contras Normal [facility] Urinalysis, Completeon 05-05 BACTERIA Normal None Seen [facility] Comment on above: Order Comment: PT. D ISCHARGEDCOLLECTOR TO SPECIFY Result Comment: PT D ISCHARGED Performed By: #### L 400.0001 ####[facility] [address] [place], [address] BILIRUBIN URINE Normal Negative [facility] Comment on above: Order Comment: PT. D ISCHARGEDCOLLECTOR TO SPECIFY Result Comment: PT D ISCHARGED Performed By: #### L 400.0001 ####[facility] [address] [place], [address] Clarity (U) Normal Clear [facility] Comment on above: Order Comment: PT. D ISCHARGEDCOLLECTOR TO SPECIFY Result Comment: PT D ISCHARGED Performed By: #### L 400.0001 ####[facility] [address] [place], [address] Color (U) Normal Yellow [facility] Comment on above: Order Comment: PT. D ISCHARGEDCOLLECTOR TO SPECIFY Result Comment: PT D ISCHARGED Performed By: #### L 400.0001 ####[facility] [address] [place], [address] EPI,SQUAMOUS Normal 5-10 [facility] Comment on above: Order Comment: PT. D ISCHARGEDCOLLECTOR TO SPECIFY Result Comment: PT D ISCHARGED Performed By: #### L 400.0001 ####[facility] [address] [place], [address] GLUCOSE, UR Normal Normal [facility] Comment on above: Order Comment: PT. D ISCHARGEDCOLLECTOR TO SPECIFY Result Comment: PT D ISCHARGED Performed By: #### L 400.0001 ####[facility] [address] [place], [address] KETONE UR Normal Negative [facility] Comment on above: Order Comment: PT. D ISCHARGEDCOLLECTOR TO SPECIFY Result Comment: PT D ISCHARGED Performed By: #### L 400.0001 ####[facility] [address] [place], [address] LEUK ESTERASE Normal Negative [facility] Comment on above: Order Comment: PT. D ISCHARGEDCOLLECTOR TO SPECIFY Result Comment: PT D ISCHARGED Performed By: #### L 400.0001 ####[facility] [address] [place], [address] Mucus Ql (Urine sed) Normal [facility] Comment on above: Order Comment: PT. D ISCHARGEDCOLLECTOR TO SPECIFY Result Comment: PT D ISCHARGED Performed By: #### L 400.0001 ####[facility] [address] [place], [address] Nitrite Ql (U) Normal Negative [facility] Comment on above: Order Comment: PT. D ISCHARGEDCOLLECTOR TO SPECIFY Result Comment: PT D ISCHARGED Performed By: #### L 400.0001 ####[facility] [address] [place], [address] OCCULT BLOOD-UR Normal Negative [facility] Comment on above: Order Comment: PT. D ISCHARGEDCOLLECTOR TO SPECIFY Result Comment: PT D ISCHARGED Performed By: #### L 400.0001 ####[facility] [address] [place], [address] pH UR Normal 5.0 - 8.0 [facility] Comment on above: Order Comment: PT. D ISCHARGEDCOLLECTOR TO SPECIFY Result Comment: PT D ISCHARGED Performed By: #### L 400.0001 ####[facility] [address] [place], [address] PROT DIPSTX Normal Negative [facility] Comment on above: Order Comment: PT. D ISCHARGEDCOLLECTOR TO SPECIFY Result Comment: PT D ISCHARGED Performed By: #### L 400.0001 ####[facility] [address] [place], [address] RBC Normal 0-5 [facility] Comment on above: Order Comment: PT. D ISCHARGEDCOLLECTOR TO SPECIFY Result Comment: PT D ISCHARGED Performed By: #### L 400.0001 ####[facility] [address] [place], [address] SP.GR. DIPSTX Normal 1.002-1.030 [facility] Comment on above: Order Comment: PT. D ISCHARGEDCOLLECTOR TO SPECIFY Result Comment: PT D ISCHARGED Performed By: #### L 400.0001 ####[facility] [address] [place], [address] UR Preservative Normal [facility] Comment on above: Order Comment: PT. D ISCHARGEDCOLLECTOR TO SPECIFY Result Comment: PT D ISCHARGED Performed By: #### L 400.0001 ####[facility] [address] [place], [address] UROBILI Normal Normal [facility] Comment on above: Order Comment: PT. D ISCHARGEDCOLLECTOR TO SPECIFY Result Comment: PT D ISCHARGED Performed By: #### L 400.0001 ####[facility] [address] [place], [address] WBC Normal 0-5 [facility] Comment on above: Order Comment: PT. D ISCHARGEDCOLLECTOR TO SPECIFY Result Comment: PT D ISCHARGED Performed By: #### L 400.0001 ####[facility] [address] [place], [address] VITAMIN B12on 05-05-2024 Cobalamin (Vitamin B12) [Mass/Vol] 473 pg/mL 232 - 1245 pg/mL [facility] VITAMIN D 25 HYDROXYon 05-05 25-hydroxyvitamin D3 [Mass/Vol] 58.3 ng/mL 31.0 - 80.0 ng/mL [facility] Comment on above: Classification of 25 [place] Vitamin D status: Deficiency/Insufficiency: < or = 30 ng/ml. Sufficiency/Optimal Levels: 31-80 ng/mL Toxicity: > 100 ng/mL. Test performed by chemiluminescent immunoassay. White blood cell (WBC) count Ordered By: Arden Leger on 05-05-2024 WBC (Bld) [#/Vol] 8.0 10*3/uL 4.4-11.0 [facility] aPTT Coag (PPP) [Time]Ordere d By: Arden Leger on 05-05-2024 aPTT Coag (Bld) [Time] 26.8 s 24.1-36.2 [facility] HISTORY PHYSICALon HISTORY PHYSICAL HNO ID: [id number] Author: MORAIMA MONTELONGO MD Service: Pain Management Author Type: Physician Type: H&P Filed: 03/30/2024 07:05 Note Text: HISTORY AND PHYSICAL EXAMINATION PATIENT NAME: Miriam Davenport DATE of SERVICE: 03/30/2024 Miriam Davenport is here for the pain mangement procedure. The patients presents with persistent pain complaints. Miriam Davenport denies any interval changes or new pain complaints or focal neurologic deficits. 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 MORBID OBESITY 08/18/2007 Obstructive sleep apnea Sleep study 2003 Occlusion and stenosis of carotid artery without mention of cerebral infarction 03/09/2006 mild stenosis shown on u/s at [facility] u/s repeated 02/02/07 with no change Open [...] 09/14/2007 HERNIA REPAIR W/MESH 2019 ventral INCISION AND DRAINAGE ABSCESS SIMPLE/SINGLE 05/31/2009 ABD WALL and intestine removed LAPS COLECTOMY PRTL W/RMVL TERMINAL ILEUM 02/20/2009 polyps LIG/TRNSXJ FLP TUBE ABDL/VAG APPR UNI/BI 01/29/1970 Tubal ligation NSL/SINUS NDSC SPHENDT RMVL TISS SPHENOID SINUS PAST SURGICAL HISTORY OF 02/29/2008 Left total knee PAST SURGICAL HISTORY OF 04/30/2008 Right total knee Social History Tobacco Use Smoking status: Never Smokeless tobacco: Never Vaping Use Vaping status: Never Used Substance Use Topics Alcohol use: No Drug use: No FAMILY HISTORY Problem Relation Age of Onset Breast Cancer Mother cva Stroke Mother Heart Father AAA Colon Cancer Father other (leukemia) Brother ALLERGIES Allergen Reactions Asa [Salicylates] Anaphylaxis Cephalexin [...] not suppose to take it Crestor [Rosuvastat* Eggs [Egg] Diarrhea Not true allergy Erythromycin Myalgia Etodolac Contraindication-Medica l Surgical Was told never to take NSAID due to bypass surgery. She also developed severe pain after taking Etodolac that was excruciating Lipitor [Atorvastat* Niacin Unknown Niaspan [Niacin (An* Nsaids (Non-Steroid* Intolerance Was told to avoid all NSAID's due to bypass surgery Penicillins Rash Pravachol [Pravasta* Sulfa (Sulfonamide * Rash Tape [Adhesive Tape* Itching Zetia [Ezetimibe] Zocor [Simvastatin] Current Facility-Administered Medications Medication Dose Route Frequency NaCl 0.9% iv infusion 30 mL/hr INTRAVENOUS CONTINUOUS Physical Exam: Performed in conjunction with observation. The patient is alert and oriented x3. The patient is in no acute distress. Neck: Supple. The range of motion is intact. Lungs: clear CVR: RRR. Extremities: no reported edema or erythema. Examination indicates no changes Impression: Lumbar foraminal stenosis Plan: The informed consent has been obtained. The plan is to proceed with the procedure as planned. SIGNATURE: Moraima Montelongo MD DATE: March 30, 2024 TIME: 7:05 AM [facility] OPERATIVE NOon 03-30-2024 OPERATIVE NO HNO ID: [id number] Author: MORAIMA MONTELONGO MD Service: Pain Management Author Type: Physician Type: Operative Report Filed: 03/30/2024 08:12 Note Text: PATIENT NAME: Miriam Davenport SERVICE DATE: 03/30/2024 PROCEDURE NOTE PREOPERATIVE DIAGNOSIS(ES) Lumbar radiculopathy Lumbar disc displacement Lumbar canal stenosis without neurogenic claudication Lumbar DDD POSTOPERATIVE DIAGNOSIS(ES): Same PROCEDURE: Left L4-5 lumbar transforaminal epidural steroid injection under fluoroscopy. Production Corrugator(s): None, I performed the entire procedure. ANESTHESIA: Local SEDATION: Moderate Sedation; midazolam 2mg IV, ASA status II, normal airway, chest excursion and heart rate. Airway reassessed immediately prior to medication administration, and IV sedation was administered incrementally to allow the patient to remain comfortable and conversant throughout the procedure. Sedation Start Time: 8:02 AM Sedation End Time: 8:09 AM INDICATIONS: The patient presents for lumbar transforaminal epidural steroid injection. Since the last assessment, the patient denies any new pain complaints and denies any focal neurological deficits. The risks and benefits of the procedure were discussed. Specifically, the risks of bleeding, infection, inadvertent dural puncture, spinal heaches, vasovagal reaction, epidural hematoma, partial or permanent nerve injury were covered. The potential side effects of medications used in procedures including increase in lumbar pain, headaches, facial redness or warmth (flushing), anxiety or mood swings, sleeplessness, fever, high blood sugar, brief reduction in immunity were discussed. The patient expressed understanding of potential risks and wishes to proceed with the procedure. PROCEDURE NOTE: The patient was brought to the operating room. The patient was placed in the prone position with pressure points protected. Continuous hemodynamic monitoring was initiated including blood pressure, EKG, and pulse oximetry. Supplemental oxygen per nasal canula was started. The intravenous medication was administered incrementally to provide conscious sedation and to allow the patient to remain comfortable and conversant throughout the procedure. The lower back was prepped in sterile fashion. Upon AP projection under a fluoroscopy, the lumbar L4-5 level was identified. The fluoroscopy was rotated in oblique projection to identify the neuroforamen. Entry point was marked and anesthetized with 2ml of 0.25% Marcaine. This was followed by insertion of a 5 inch spinal needle, which was inserted and advanced towards the 12 o' clock of the L4-5 neuroforamen. Once the Needle tip contacted the inferior lateral aspect of the pedicle, aspiration was performed which was negative for blood or CSF. This was followed by injection of 0.2 ml of Omnipaque 300, which revealed a spread through the neuroforamen into the anterior epidural space. There was no evidence of intravascular or intrathecal flow. This was then followed by a total injection of 2 mL of 0.25% Marcaine with 40 mg of Depomedrol. The patient tolerated the procedure well. The needle was removed intact. Dry dressing was placed over the injection site. The patient was taken to the recovery room in stable condition. EBL: nil I was present the entire time and personally performed the procedure. SIGNATURE: Moraima Montelongo MD DATE: March 30, 2024 TIME: 8:12 AM Normal [facility] HIP, UNI W/ Pelvis 2-3 Views on 03-10-2024 HIP, UNI W/ Pelvis 2-3 Views Normal [facility] Orthopedic Visit Reporton Orthopedic Visit Report Normal [facility] Basic Metabolic Profile (BMP )on 02-17-2024 BUN Normal 7-18 [facility] Comment on above: Result Comment: Canc elled via OM: Order cancelled - Patient discharged Performed By: #### L 500.2500, L100.0100 ####[facility] [address] [place], [address] BUN/CRE Normal 10-20 [facility] Comment on above: Result Comment: Canc elled via OM: Order cancelled - Patient discharged Performed By: #### L 500.2500, L100.0100 ####[facility] [address] [place], [address] CA,Total Normal 8.5-10.1 [facility] Comment on above: Result Comment: Canc elled via OM: Order cancelled - Patient discharged Performed By: #### L 500.2500, L100.0100 ####[facility] [address] [place], [address] CL Normal 98-107 [facility] Comment on above: Result Comment: Canc elled via OM: Order cancelled - Patient discharged Performed By: #### L 500.2500, L100.0100 ####[facility] [address] [place], [address] CO2 Normal 21.0-32.0 [facility] Comment on above: Result Comment: Canc elled via OM: Order cancelled - Patient discharged Performed By: #### L 500.2500, L100.0100 ####[facility] [address] [place], [address] CREAT,SERUM Normal 0.55-1.02 [facility] Comment on above: Result Comment: Canc elled via OM: Order cancelled - Patient discharged Performed By: #### L 500.2500, L100.0100 ####[facility] [address] [place], [address] EST GFR Normal >60 [facility] Comment on above: Result Comment: Canc elled via OM: Order cancelled - Patient discharged Performed By: #### L 500.2500, L100.0100 ####[facility] [address] [place], [address] EST GFR - AA Normal >60 [facility] Comment on above: Result Comment: Canc elled via OM: Order cancelled - Patient discharged Performed By: #### L 500.2500, L100.0100 ####[facility] [address] [place], [address] GAP Normal 5-15 [facility] Comment on above: Result Comment: Canc elled via OM: Order cancelled - Patient discharged Performed By: #### L 500.2500, L100.0100 ####[facility] [address] [place], [address] GLU Normal 74-106 [facility] Comment on above: Result Comment: Canc elled via OM: Order cancelled - Patient discharged Performed By: #### L 500.2500, L100.0100 ####[facility] [address] [place], [address] Potassium Normal 3.5-5.1 [facility] Comment on above: Result Comment: Canc elled via OM: Order cancelled - Patient discharged Performed By: #### L 500.2500, L100.0100 ####[facility] [address] [place], [address] Basic Metabolic Profile (BMP) Normal 136-145 [facility] Comment on above: Result Comment: Canc elled via OM: Order cancelled - Patient discharged Performed By: #### L 500.2500, L100.0100 ####[facility] [address] [place], [address] CBC W/Diff, Automatedon 01-29 Absolute Neut Normal 2.0-7.7 [facility] Comment on above: Result Comment: Canc elled via OM: Order cancelled - Patient discharged Performed By: #### L 500.2500, L100.0100 ####[facility] [address] [place], [address] HCT Normal 37-47 [facility] Comment on above: Result Comment: Canc elled via OM: Order cancelled - Patient discharged Performed By: #### L 500.2500, L100.0100 ####[facility] [address] [place], [address] HGB Normal 12.0-15.0 [facility] Comment on above: Result Comment: Canc elled via OM: Order cancelled - Patient discharged Performed By: #### L 500.2500, L100.0100 ####[facility] [address] [place], [address] MCH Normal 27.0-32.0 [facility] Comment on above: Result Comment: Canc elled via OM: Order cancelled - Patient discharged Performed By: #### L 500.2500, L100.0100 ####[facility] [address] [place], [address] MCHC Normal 32-36 [facility] Comment on above: Result Comment: Canc elled via OM: Order cancelled - Patient discharged Performed By: #### L 500.2500, L100.0100 ####[facility] [address] [place], [address] MCV Normal 81-99 [facility] Comment on above: Result Comment: Canc elled via OM: Order cancelled - Patient discharged Performed By: #### L 500.2500, L100.0100 ####[facility] [address] [place], [address] NEUT% Normal 47-70 [facility] Comment on above: Result Comment: Canc elled via OM: Order cancelled - Patient discharged Performed By: #### L 500.2500, L100.0100 ####[facility] [address] [place], [address] PLT Normal 150-450 [facility] Comment on above: Result Comment: Canc elled via OM: Order cancelled - Patient discharged Performed By: #### L 500.2500, L100.0100 ####[facility] [address] [place], [address] RBC Normal 4.2-5.4 [facility] Comment on above: Result Comment: Canc elled via OM: Order cancelled - Patient discharged Performed By: #### L 500.2500, L100.0100 ####[facility] [address] [place], [address] RDW CV Normal 11.6-14.6 [facility] Comment on above: Result Comment: Canc elled via OM: Order cancelled - Patient discharged Performed By: #### L 500.2500, L100.0100 ####[facility] [address] [place], [address] RDW SD Normal 35.1-43.9 [facility] Comment on above: Result Comment: Canc elled via OM: Order cancelled - Patient discharged Performed By: #### L 500.2500, L100.0100 ####[facility] [address] [place], [address] WBC Normal 4.4-11.0 [facility] Comment on above: Result Comment: Canc elled via OM: Order cancelled - Patient discharged Performed By: #### L 500.2500, L100.0100 ####[facility] [address] [place], [address] Basic Metabolic Profile (BMP )on 02-10-2024 BUN Normal 7-18 [facility] Comment on above: Result Comment: Canc elled via OM: Order cancelled - Patient discharged Performed By: #### L 100.0100, L500.2500 ####[facility] [address] [place], [address] BUN/CRE Normal 10-20 [facility] Comment on above: Result Comment: Canc elled via OM: Order cancelled - Patient discharged Performed By: #### L 100.0100, L500.2500 ####[facility] [address] [place], [address] CA,Total Normal 8.5-10.1 [facility] Comment on above: Result Comment: Canc elled via OM: Order cancelled - Patient discharged Performed By: #### L 100.0100, L500.2500 ####[facility] [address] [place], [address] CL Normal 98-107 [facility] Comment on above: Result Comment: Canc elled via OM: Order cancelled - Patient discharged Performed By: #### L 100.0100, L500.2500 ####[facility] [address] [place], [address] CO2 Normal 21.0-32.0 [facility] Comment on above: Result Comment: Canc elled via OM: Order cancelled - Patient discharged Performed By: #### L 100.0100, L500.2500 ####[facility] [address] [place], [address] CREAT,SERUM Normal 0.55-1.02 [facility] Comment on above: Result Comment: Canc elled via OM: Order cancelled - Patient discharged Performed By: #### L 100.0100, L500.2500 ####[facility] [address] [place], [address] EST GFR Normal >60 [facility] Comment on above: Result Comment: Canc elled via OM: Order cancelled - Patient discharged Performed By: #### L 100.0100, L500.2500 ####[facility] [address] [place], [address] EST GFR - AA Normal >60 [facility] Comment on above: Result Comment: Canc elled via OM: Order cancelled - Patient discharged Performed By: #### L 100.0100, L500.2500 ####[facility] [address] [place], [address] GAP Normal 5-15 [facility] Comment on above: Result Comment: Canc elled via OM: Order cancelled - Patient discharged Performed By: #### L 100.0100, L500.2500 ####[facility] [address] [place], [address] GLU Normal 74-106 [facility] Comment on above: Result Comment: Canc elled via OM: Order cancelled - Patient discharged Performed By: #### L 100.0100, L500.2500 ####[facility] [address] [place], [address] Potassium Normal 3.5-5.1 [facility] Comment on above: Result Comment: Canc elled via OM: Order cancelled - Patient discharged Performed By: #### L 100.0100, L500.2500 ####[facility] [address] [place], [address] Basic Metabolic Profile (BMP) Normal 136-145 [facility] Comment on above: Result Comment: Canc elled via OM: Order cancelled - Patient discharged Performed By: #### L 100.0100, L500.2500 ####[facility] [address] [place], [address] CBC W/Diff, Automatedon 09- Absolute Neut Normal 2.0-7.7 [facility] Comment on above: Result Comment: Canc elled via OM: Order cancelled - Patient discharged Performed By: #### L 100.0100, L500.2500 ####[facility] [address] [place], [address] HCT Normal 37-47 [facility] Comment on above: Result Comment: Canc elled via OM: Order cancelled - Patient discharged Performed By: #### L 100.0100, L500.2500 ####[facility] [address] [place], [address] HGB Normal 12.0-15.0 [facility] Comment on above: Result Comment: Canc elled via OM: Order cancelled - Patient discharged Performed By: #### L 100.0100, L500.2500 ####[facility] [address] [place], [address] MCH Normal 27.0-32.0 [facility] Comment on above: Result Comment: Canc elled via OM: Order cancelled - Patient discharged Performed By: #### L 100.0100, L500.2500 ####[facility] [address] [place], [address] MCHC Normal 32-36 [facility] Comment on above: Result Comment: Canc elled via OM: Order cancelled - Patient discharged Performed By: #### L 100.0100, L500.2500 ####[facility] [address] [place], [address] MCV Normal 81-99 [facility] Comment on above: Result Comment: Canc elled via OM: Order cancelled - Patient discharged Performed By: #### L 100.0100, L500.2500 ####[facility] [address] [place], [address] NEUT% Normal 47-70 [facility] Comment on above: Result Comment: Canc elled via OM: Order cancelled - Patient discharged Performed By: #### L 100.0100, L500.2500 ####[facility] [address] [place], [address] PLT Normal 150-450 [facility] Comment on above: Result Comment: Canc elled via OM: Order cancelled - Patient discharged Performed By: #### L 100.0100, L500.2500 ####[facility] [address] [place], [address] RBC Normal 4.2-5.4 [facility] Comment on above: Result Comment: Canc elled via OM: Order cancelled - Patient discharged Performed By: #### L 100.0100, L500.2500 ####[facility] [address] [place], [address] RDW CV Normal 11.6-14.6 [facility] Comment on above: Result Comment: Canc elled via OM: Order cancelled - Patient discharged Performed By: #### L 100.0100, L500.2500 ####[facility] [address] [place], [address] RDW SD Normal 35.1-43.9 [facility] Comment on above: Result Comment: Canc elled via OM: Order cancelled - Patient discharged Performed By: #### L 100.0100, L500.2500 ####[facility] [address] [place], [address] WBC Normal 4.4-11.0 [facility] Comment on above: Result Comment: Canc elled via OM: Order cancelled - Patient discharged Performed By: #### L 100.0100, L500.2500 ####[facility] [address] [place], [address] Hemoglobin A1con 02-09-2024 HbA1c (Bld) [Mass fraction] 6.3 % High 3.8-5.6 [facility] Comment on above: Order Comment: 102-1 Result Comment: Norm al < 5.7 % Prediabetic 5.7 - 6.4 % Diabetic >or= 6.5 % Please note range changes. Performed By: #### L 501.9985, L506.1000 ####[facility] [address] [place], [address] Vitamin D,25 Hydroxyon 02-08 Vitamin D 25-OH 61.2 ng/mL Normal [facility] Comment on above: Order Comment: 102-1 Result Comment: Ofelia min D 25(OH) Status Range Deficiency <20 ng/mL (50nmol/L) Insufficiency 20 - 30 ng/mL (50 - 75 nmol/L) Sufficiency 30 - 100 ng/mL (75 - 250 nmol/L) Toxicity >100 ng/mL (>250 nmol/L) Performed By: #### L 501.9985, L506.1000 ####[facility] [address] [place], [address] Basic Metabolic Profile (BMP )on 2024 BUN/CRE 21.4 RATIO High 10-20 [facility] Comment on above: Order Comment: 102.1 Performed By: #### L 100.0500, L500.2500 ####[facility] [address] [place], [address] CA,Total 9.4 mg/dL Normal 8.5-10.1 [facility] Comment on above: Order Comment: 102.1 Performed By: #### L 100.0500, L500.2500 ####[facility] [address] [place], [address] Chloride [Moles/Vol] 105 mmol/L Normal 98-107 [facility] Comment on above: Order Comment: 102.1 Performed By: #### L 100.0500, L500.2500 ####[facility] [address] [place], [address] CO2 [Moles/Vol] 25.0 mmol/L Normal 21.0-32.0 [facility] Comment on above: Order Comment: 102.1 Performed By: #### L 100.0500, L500.2500 ####[facility] [address] [place], [address] Creatinine [Mass/Vol] 0.56 mg/dL Normal 0.55-1.02 [facility] Comment on above: Order Comment: 102.1 Result Comment: The validity of the calculated GFR GFRAA in patients over70 years has not been determined. Clinical correlation isessential. Performed By: #### L 100.0500, L500.2500 ####[facility] [address] [place], [address] EST GFR - AA 133 mL/min Normal >60 [facility] Comment on above: Order Comment: 102.1 Result Comment: Afri can Irish GFR Calc Performed By: #### L 100.0500, L500.2500 ####[facility] [address] [place], [address] GAP 8 Normal 5-15 [facility] Comment on above: Order Comment: 102.1 Performed By: #### L 100.0500, L500.2500 ####[facility] [address] [place], [address] GFR/1.73 sq M.predicted among non-blacks MDRD (S/P/Bld) [Vol rate/Area] 110 mL/min/{1.73_m2} Normal >60 [facility] Comment on above: Order Comment: 102.1 Result Comment: Non- GFR Calc Performed By: #### L 100.0500, L500.2500 ####[facility] [address] [place], [address] Glucose [Mass/Vol] 132 mg/dL High 74-106 [facility] Comment on above: Order Comment: 102.1 Result Comment: Fast ing Glucose result greater than or equal to 126 mg/dLsuggests DIABETES MELLITUS per A.D.A. criteria. Performed By: #### L 100.0500, L500.2500 ####[facility] [address] [place], [address] Potassium [Moles/Vol] 3.6 mmol/L Normal 3.5-5.1 [facility] Comment on above: Order Comment: 102.1 Performed By: #### L 100.0500, L500.2500 ####[facility] [address] [place], [address] Sodium [Moles/Vol] 138 mmol/L Normal 136-145 [facility] Comment on above: Order Comment: 102.1 Performed By: #### L 100.0500, L500.2500 ####[facility] [address] [place], [address] Urea nitrogen [Mass/Vol] 12 mg/dL Normal 7-18 [facility] Comment on above: Order Comment: 102.1 Performed By: #### L 100.0500, L500.2500 ####[facility] [address] [place], [address] CBC-Complete Blood Cnt No Di ffon 2024 Erythrocyte distribution width (RBC) [Ratio] 15.9 % High 11.6-14.6 [facility] Comment on above: Order Comment: 102.1 Performed By: #### L 100.0500, L500.2500 ####[facility] [address] [place], [address] Hematocrit (Bld) [Volume fraction] 36.7 % Low 37-47 [facility] Comment on above: Order Comment: 102.1 Performed By: #### L 100.0500, L500.2500 ####[facility] [address] [place], [address] Hemoglobin (Bld) [Mass/Vol] 11.1 g/dL Low 12.0-15.0 [facility] Comment on above: Order Comment: 102.1 Performed By: #### L 100.0500, L500.2500 ####[facility] [address] [place], [address] MCH (RBC) [Entitic mass] 28.7 pg Normal 27.0-32.0 [facility] Comment on above: Order Comment: 102.1 Performed By: #### L 100.0500, L500.2500 ####[facility] [address] [place], [address] MCHC (RBC) [Mass/Vol] 30.2 g/dL Low 32-36 [facility] Comment on above: Order Comment: 102.1 Performed By: #### L 100.0500, L500.2500 ####[facility] [address] [place], [address] MCV (RBC) [Entitic vol] 94.8 fL Normal 81-99 [facility] Comment on above: Order Comment: 102.1 Performed By: #### L 100.0500, L500.2500 ####[facility] [address] [place], [address] Platelet mean volume (Bld) [Entitic vol] 11.1 fL Normal 6.2-12.0 [facility] Comment on above: Order Comment: 102.1 Performed By: #### L 100.0500, L500.2500 ####[facility] [address] [place], [address] Platelets (Bld) [#/Vol] 388 10*3/uL Normal 150-450 [facility] Comment on above: Order Comment: 102.1 Performed By: #### L 100.0500, L500.2500 ####[facility] [address] [place], [address] RBC (Bld) [#/Vol] 3.87 10*6/uL Low 4.2-5.4 [facility] Comment on above: Order Comment: 102.1 Performed By: #### L 100.0500, L500.2500 ####[facility] [address] [place], [address] RDW SD 55.1 fl High 35.1-43.9 [facility] Comment on above: Order Comment: 102.1 Performed By: #### L 100.0500, L500.2500 ####[facility] [address] [place], [address] WBC (Bld) [#/Vol] 6.5 10*3/uL Normal 4.4-11.0 [facility] Comment on above: Order Comment: 102.1 Performed By: #### L 100.0500, L500.2500 ####[facility] [address] [place], [address] Bedside Glucoseon 02-04-2024 FINGERSTICK GLU 125 mg/dL High 74-106 [facility] Comment on above: Result Comment: JOAO ISRAEL OF PATIENT CARE PER NURSING PROTOCOL Performed By: #### L 501.080 ####[facility] [address] [place], [address] Basic Metabolic Profile (BMP )on 02-03-2024 BUN/CRE 28.0 RATIO High 10-20 [facility] Comment on above: Performed By: #### L 100.0100, L500.2500 ####[facility] [address] [place], [address] CA,Total 9.1 mg/dL Normal 8.5-10.1 [facility] Comment on above: Performed By: #### L 100.0100, L500.2500 ####[facility] [address] [place], [address] Chloride [Moles/Vol] 105 mmol/L Normal 98-107 [facility] Comment on above: Performed By: #### L 100.0100, L500.2500 ####[facility] [address] [place], [address] CO2 [Moles/Vol] 28.0 mmol/L Normal 21.0-32.0 [facility] Comment on above: Performed By: #### L 100.0100, L500.2500 ####[facility] [address] [place], [address] Creatinine [Mass/Vol] 0.61 mg/dL Normal 0.55-1.02 [facility] Comment on above: Result Comment: The validity of the calculated GFR GFRAA in patients over70 years has not been determined. Clinical correlation isessential. Performed By: #### L 100.0100, L500.2500 ####[facility] [address] [place], [address] ECRCL 61.21 ml/min Normal [facility] Comment on above: Performed By: #### L 100.0100, L500.2500 ####[facility] [address] [place], [address] EST GFR - AA 122 mL/min Normal >60 [facility] Comment on above: Result Comment: Afri can Irish GFR Calc Performed By: #### L 100.0100, L500.2500 ####[facility] [address] [place], [address] GAP 4 Low 5-15 [facility] Comment on above: Performed By: #### L 100.0100, L500.2500 ####[facility] [address] [place], [address] GFR/1.73 sq M.predicted among non-blacks MDRD (S/P/Bld) [Vol rate/Area] 100 mL/min/{1.73_m2} Normal >60 [facility] Comment on above: Result Comment: Non- GFR Calc Performed By: #### L 100.0100, L500.2500 ####[facility] [address] [place], [address] Glucose [Mass/Vol] 135 mg/dL High 74-106 [facility] Comment on above: Result Comment: Fast ing Glucose result greater than or equal to 126 mg/dLsuggests DIABETES MELLITUS per A.D.A. criteria. Performed By: #### L 100.0100, L500.2500 ####[facility] [address] [place], [address] Potassium [Moles/Vol] 3.9 mmol/L Normal 3.5-5.1 [facility] Comment on above: Performed By: #### L 100.0100, L500.2500 ####[facility] [address] [place], [address] Sodium [Moles/Vol] 137 mmol/L Normal 136-145 [facility] Comment on above: Performed By: #### L 100.0100, L500.2500 ####[facility] [address] [place], [address] Urea nitrogen [Mass/Vol] 17 mg/dL Normal 7-18 [facility] Comment on above: Performed By: #### L 100.0100, L500.2500 ####[facility] [address] [place], [address] Bedside Glucoseon 02-03-2024 FINGERSTICK GLU 150 mg/dL High 74-106 [facility] Comment on above: Result Comment: JOAO ISRAEL OF PATIENT CARE PER NURSING PROTOCOL Performed By: #### L 501.080 ####[facility] [address] [place], [address] CBC W/Diff, Automatedon 09-0 5-2024 Absolute Lymph 1.43 X10 3/uL Normal 0.83-4.51 [facility] Comment on above: Performed By: #### L 100.0100, L500.2500 ####[facility] [address] [place], [address] Absolute Neut 4.3 X10 3/uL Normal 2.0-7.7 [facility] Comment on above: Performed By: #### L 100.0100, L500.2500 ####[facility] [address] [place], [address] Basophils/100 WBC (Bld) 0.7 % Normal 0-1 [facility] Comment on above: Performed By: #### L 100.0100, L500.2500 ####[facility] [address] [place], [address] Eosinophils/100 WBC (Bld) 4.0 % Normal 0-5 [facility] Comment on above: Performed By: #### L 100.0100, L500.2500 ####[facility] [address] [place], [address] Erythrocyte distribution width (RBC) [Ratio] 15.7 % High 11.6-14.6 [facility] Comment on above: Performed By: #### L 100.0100, L500.2500 ####[facility] [address] [place], [address] Hematocrit (Bld) [Volume fraction] 32.4 % Low 37-47 [facility] Comment on above: Performed By: #### L 100.0100, L500.2500 ####[facility] [address] [place], [address] Hemoglobin (Bld) [Mass/Vol] 9.8 g/dL Low 12.0-15.0 [facility] Comment on above: Performed By: #### L 100.0100, L500.2500 ####[facility] [address] [place], [address] IG% 0.300 Normal 0.0-0.9 [facility] Comment on above: Result Comment: IG% - Immature Granulocytes (promyelocytes, myelocytes andmetamyelocytes) > 1% indicates that a LEFT SHIFT is Present. Performed By: #### L 100.0100, L500.2500 ####[facility] [address] [place], [address] Lymphocytes/100 WBC (Bld) 21.1 % Normal 19-41 [facility] Comment on above: Performed By: #### L 100.0100, L500.2500 ####[facility] [address] [place], [address] MCH (RBC) [Entitic mass] 28.5 pg Normal 27.0-32.0 [facility] Comment on above: Performed By: #### L 100.0100, L500.2500 ####[facility] [address] [place], [address] MCHC (RBC) [Mass/Vol] 30.2 g/dL Low 32-36 [facility] Comment on above: Performed By: #### L 100.0100, L500.2500 ####[facility] [address] [place], [address] MCV (RBC) [Entitic vol] 94.2 fL Normal 81-99 [facility] Comment on above: Performed By: #### L 100.0100, L500.2500 ####[facility] [address] [place], [address] Monocytes/100 WBC (Bld) 10.5 % High 0-10 [facility] Comment on above: Performed By: #### L 100.0100, L500.2500 ####[facility] [address] [place], [address] Neutrophils/100 WBC (Bld) 63.4 % Normal 47-70 [facility] Comment on above: Performed By: #### L 100.0100, L500.2500 ####[facility] [address] [place], [address] Nucleated RBC (Bld) [#/Vol] 0 10*3/uL Normal 0-5 [facility] Comment on above: Performed By: #### L 100.0100, L500.2500 ####[facility] [address] [place], [address] Platelet mean volume (Bld) [Entitic vol] 10.2 fL Normal 6.2-12.0 [facility] Comment on above: Performed By: #### L 100.0100, L500.2500 ####[facility] [address] [place], [address] Platelets (Bld) [#/Vol] 399 10*3/uL Normal 150-450 [facility] Comment on above: Performed By: #### L 100.0100, L500.2500 ####[facility] [address] [place], [address] RBC (Bld) [#/Vol] 3.44 10*6/uL Low 4.2-5.4 [facility] Comment on above: Performed By: #### L 100.0100, L500.2500 ####[facility] [address] [place], [address] RDW SD 53.8 fl High 35.1-43.9 [facility] Comment on above: Performed By: #### L 100.0100, L500.2500 ####[facility] [address] [place], [address] WBC (Bld) [#/Vol] 6.8 10*3/uL Normal 4.4-11.0 [facility] Comment on above: Performed By: #### L 100.0100, L500.2500 ####[facility] [address] [place], [address] Bedside Glucoseon 02-02-2024 FINGERSTICK GLU 98 mg/dL Normal 74-106 [facility] Comment on above: Result Comment: JOAO GEMENT OF PATIENT CARE PER NURSING PROTOCOL Performed By: #### L 501.080 ####[facility] [address] [place], [address] Bedside Glucoseon 02-01-2024 FINGERSTICK GLU 139 mg/dL High [address] [place] [address] Comment on above: Result Comment: JOAO GEMENT OF PATIENT CARE PER NURSING PROTOCOL Performed By: #### L 501.080 ####[facility] [address] [place], [address] Bedside Glucoseon 01-31-2024 FINGERSTICK GLU 120 mg/dL High [address] [place] [address] Comment on above: Result Comment: JOAO GEMENT OF PATIENT CARE PER NURSING PROTOCOL Performed By: #### L 501.080 ####[facility] [address] [place], [address] Bedside Glucoseon 01-30-2024 FINGERSTICK GLU 102 mg/dL Normal -[address] [place] [address] Comment on above: Result Comment: JOAO GEMENT OF PATIENT CARE PER NURSING PROTOCOL Performed By: #### L 501.080 ####[facility] [address] [place], [address] Bedside Glucoseon 01-29-2024 FINGERSTICK GLU 130 mg/dL High -[address] [place] [address] Comment on above: Result Comment: JOAO GEMENT OF PATIENT CARE PER NURSING PROTOCOL Performed By: #### L 501.080 ####[facility] [address] [place], [address] Bedside Glucoseon 01-28-2024 FINGERSTICK GLU 132 mg/dL High 74-106 [facility] Comment on above: Result Comment: JOAO ISRAEL OF PATIENT CARE PER NURSING PROTOCOL Performed By: #### L 501.080 ####[facility] [address] [place], [address] Basic Metabolic Profile (BMP )on 01-27-2024 BUN/CRE 34.7 RATIO High 10-20 [facility] Comment on above: Performed By: #### L 100.0100, L500.2500 ####[facility] [address] [place], [address] CA,Total 9.2 mg/dL Normal 8.5-10.1 [facility] Comment on above: Performed By: #### L 100.0100, L500.2500 ####[facility] [address] [place], [address] Chloride [Moles/Vol] 102 mmol/L Normal 98-107 [facility] Comment on above: Performed By: #### L 100.0100, L500.2500 ####[facility] [address] [place], [address] CO2 [Moles/Vol] 30.0 mmol/L Normal 21.0-32.0 [facility] Comment on above: Performed By: #### L 100.0100, L500.2500 ####[facility] [address] [place], [address] Creatinine [Mass/Vol] 0.58 mg/dL Normal 0.55-1.02 [facility] Comment on above: Result Comment: The validity of the calculated GFR GFRAA in patients over70 years has not been determined. Clinical correlation isessential. Performed By: #### L 100.0100, L500.2500 ####[facility] [address] [place], [address] ECRCL 61.88 ml/min Normal [facility] Comment on above: Performed By: #### L 100.0100, L500.2500 ####[facility] [address] [place], [address] EST GFR - AA 129 mL/min Normal >60 [facility] Comment on above: Result Comment: Afri can Irish GFR Calc Performed By: #### L 100.0100, L500.2500 ####[facility] [address] [place], [address] GAP 5 Normal 5-15 [facility] Comment on above: Performed By: #### L 100.0100, L500.2500 ####[facility] [address] [place], [address] GFR/1.73 sq M.predicted among non-blacks MDRD (S/P/Bld) [Vol rate/Area] 106 mL/min/{1.73_m2} Normal >60 [facility] Comment on above: Result Comment: Non- GFR Calc Performed By: #### L 100.0100, L500.2500 ####[facility] [address] [place], [address] Glucose [Mass/Vol] 154 mg/dL High 74-106 [facility] Comment on above: Result Comment: Fast ing Glucose result greater than or equal to 126 mg/dLsuggests DIABETES MELLITUS per A.D.A. criteria. Performed By: #### L 100.0100, L500.2500 ####[facility] [address] [place], [address] Potassium [Moles/Vol] 4.6 mmol/L Normal 3.5-5.1 [facility] Comment on above: Performed By: #### L 100.0100, L500.2500 ####[facility] [address] [place], [address] Sodium [Moles/Vol] 137 mmol/L Normal 136-145 [facility] Comment on above: Performed By: #### L 100.0100, L500.2500 ####[facility] [address] [place], [address] Urea nitrogen [Mass/Vol] 20 mg/dL High 7-18 [facility] Comment on above: Performed By: #### L 100.0100, L500.2500 ####[facility] [address] [place], [address] Bedside Glucoseon 01-27-2024 FINGERSTICK GLU 141 mg/dL High 74-106 [facility] Comment on above: Result Comment: JOAO ISRAEL OF PATIENT CARE PER NURSING PROTOCOL Performed By: #### L 501.080 ####[facility] [address] [place], [address] CBC W/Diff, Automatedon 12-30 Absolute Lymph 1.02 X10 3/uL Normal 0.83-4.51 [facility] Comment on above: Performed By: #### L 100.0100, L500.2500 ####[facility] [address] [place], [address] Absolute Neut 5.9 X10 3/uL Normal 2.0-7.7 [facility] Comment on above: Performed By: #### L 100.0100, L500.2500 ####[facility] [address] [place], [address] Basophils/100 WBC (Bld) 0.9 % Normal 0-1 [facility] Comment on above: Performed By: #### L 100.0100, L500.2500 ####[facility] [address] [place], [address] Eosinophils/100 WBC (Bld) 3.0 % Normal 0-5 [facility] Comment on above: Performed By: #### L 100.0100, L500.2500 ####[facility] [address] [place], [address] Erythrocyte distribution width (RBC) [Ratio] 15.6 % High 11.6-14.6 [facility] Comment on above: Performed By: #### L 100.0100, L500.2500 ####[facility] [address] [place], [address] Hematocrit (Bld) [Volume fraction] 31.2 % Low 37-47 [facility] Comment on above: Performed By: #### L 100.0100, L500.2500 ####[facility] [address] [place], [address] Hemoglobin (Bld) [Mass/Vol] 9.4 g/dL Low 12.0-15.0 [facility] Comment on above: Performed By: #### L 100.0100, L500.2500 ####[facility] [address] [place], [address] IG% 0.500 Normal 0.0-0.9 [facility] Comment on above: Result Comment: IG% - Immature Granulocytes (promyelocytes, myelocytes andmetamyelocytes) > 1% indicates that a LEFT SHIFT is Present. Performed By: #### L 100.0100, L500.2500 ####[facility] [address] [place], [address] Lymphocytes/100 WBC (Bld) 12.8 % Low 19-41 [facility] Comment on above: Performed By: #### L 100.0100, L500.2500 ####[facility] [address] [place], [address] MCH (RBC) [Entitic mass] 28.3 pg Normal 27.0-32.0 [facility] Comment on above: Performed By: #### L 100.0100, L500.2500 ####[facility] [address] [place], [address] MCHC (RBC) [Mass/Vol] 30.1 g/dL Low 32-36 [facility] Comment on above: Performed By: #### L 100.0100, L500.2500 ####[facility] [address] [place], [address] MCV (RBC) [Entitic vol] 94.0 fL Normal 81-99 [facility] Comment on above: Performed By: #### L 100.0100, L500.2500 ####[facility] [address] [place], [address] Monocytes/100 WBC (Bld) 9.3 % Normal 0-10 [facility] Comment on above: Performed By: #### L 100.0100, L500.2500 ####[facility] [address] [place], [address] Neutrophils/100 WBC (Bld) 73.5 % High 47-70 [facility] Comment on above: Performed By: #### L 100.0100, L500.2500 ####[facility] [address] [place], [address] Nucleated RBC (Bld) [#/Vol] 0 10*3/uL Normal 0-5 [facility] Comment on above: Performed By: #### L 100.0100, L500.2500 ####[facility] [address] [place], [address] Platelet mean volume (Bld) [Entitic vol] 10.2 fL Normal 6.2-12.0 [facility] Comment on above: Performed By: #### L 100.0100, L500.2500 ####[facility] [address] [place], [address] Platelets (Bld) [#/Vol] 587 10*3/uL High 150-450 [facility] Comment on above: Performed By: #### L 100.0100, L500.2500 ####[facility] [address] [place], [address] RBC (Bld) [#/Vol] 3.32 10*6/uL Low 4.2-5.4 [facility] Comment on above: Performed By: #### L 100.0100, L500.2500 ####[facility] [address] [place], [address] RDW SD 53.2 fl High 35.1-43.9 [facility] Comment on above: Performed By: #### L 100.0100, L500.2500 ####[facility] [address] [place], [address] WBC (Bld) [#/Vol] 8.0 10*3/uL Normal 4.4-11.0 [facility] Comment on above: Performed By: #### L 100.0100, L500.2500 ####[facility] [address] [place], [address] COVID 19 AG RAPID (RN TY T)on 01-27-2024 SARS-CoV-2 (COVID-19) RNA ANKIT+probe Ql (Unsp spec) Normal [facility] Comment on above: Performed By: #### M 100.505 ####[facility] [address] [place], [address] HIP, UNI W/ Pelvis 2-3 Views on 01-27-2024 HIP, UNI W/ Pelvis 2-3 Views Normal [facility] Bedside Glucoseon 01-26-2024 FINGERSTICK GLU 148 mg/dL High 74-106 [facility] Comment on above: Result Comment: JOAO ISRAEL OF PATIENT CARE PER NURSING PROTOCOL Performed By: #### L 501.080 ####[facility] [address] [place], [address] Bedside Glucoseon 01-25-2024 FINGERSTICK GLU 144 mg/dL High 74-106 [facility] Comment on above: Result Comment: JOAO GEMENT OF PATIENT CARE PER NURSING PROTOCOL Performed By: #### L 501.080 ####[facility] [address] [place], [address] Bedside Glucoseon 01-24-2024 FINGERSTICK GLU 130 mg/dL High 74-106 [facility] Comment on above: Result Comment: JOAO GEMENT OF PATIENT CARE PER NURSING PROTOCOL Performed By: #### L 501.080 ####[facility] [address] [place], [address] Bedside Glucoseon 01-23-2024 FINGERSTICK GLU 134 mg/dL High [facility] Comment on above: Result Comment: JOAO GEMENT OF PATIENT CARE PER NURSING PROTOCOL Performed By: #### L 501.080 ####[facility] [address] [place], [address] Urine Cultureon 01-23-2024 URC Normal [facility] Comment on above: Performed By: #### M 100.2200 ####[facility] [address] [place], [address] Bedside Glucoseon 01-22-2024 FINGERSTICK GLU 157 mg/dL High 74-106 [facility] Comment on above: Result Comment: JOAO GEMENT OF PATIENT CARE PER NURSING PROTOCOL Performed By: #### L 501.080 ####[facility] [address] [place], [address] Bedside Glucoseon 01-21-2024 FINGERSTICK GLU 155 mg/dL High 74-106 [facility] Comment on above: Result Comment: JOAO GEMENT OF PATIENT CARE PER NURSING PROTOCOL Performed By: #### L 501.080 ####[facility] [address] [place], [address] Femur Min 2 Viewson 01-21-20 24 Femur Min 2 Views Normal [facility] Lumbar Spine 2 or 3 Viewson 01-21-2024 Lumbar Spine 2 or 3 Views Normal [facility] Pelvis 1 or 2 Viewson 2023 Pelvis 1 or 2 Views Normal [facility] Tibia Fibula 2 Viewson 01-20 Tibia Fibula 2 Views Normal [facility] Basic Metabolic Profile (BMP )on 01-20-2024 BUN/CRE 29.7 RATIO High 10-20 [facility] Comment on above: Performed By: #### L 500.2500, L100.0100 ####[facility] [address] [place], [address] CA,Total 8.8 mg/dL Normal 8.5-10.1 [facility] Comment on above: Performed By: #### L 500.2500, L100.0100 ####[facility] [address] [place], [address] Chloride [Moles/Vol] 101 mmol/L Normal 98-107 [facility] Comment on above: Performed By: #### L 500.2500, L100.0100 ####[facility] [address] [place], [address] CO2 [Moles/Vol] 29.0 mmol/L Normal 21.0-32.0 [facility] Comment on above: Performed By: #### L 500.2500, L100.0100 ####[facility] [address] [place], [address] Creatinine [Mass/Vol] 0.54 mg/dL Low 0.55-1.02 [facility] Comment on above: Result Comment: The validity of the calculated GFR GFRAA in patients over70 years has not been determined. Clinical correlation isessential. Performed By: #### L 500.2500, L100.0100 ####[facility] [address] [place], [address] ECRCL 62.51 ml/min Normal [facility] Comment on above: Performed By: #### L 500.2500, L100.0100 ####[facility] [address] [place], [address] EST GFR - AA 139 mL/min Normal >60 [facility] Comment on above: Result Comment: Afri can Irish GFR Calc Performed By: #### L 500.2500, L100.0100 ####[facility] [address] [place], [address] GAP 5 Normal 5-15 [facility] Comment on above: Performed By: #### L 500.2500, L100.0100 ####[facility] [address] [place], [address] GFR/1.73 sq M.predicted among non-blacks MDRD (S/P/Bld) [Vol rate/Area] 115 mL/min/{1.73_m2} Normal >60 [facility] Comment on above: Result Comment: Non- GFR Calc Performed By: #### L 500.2500, L100.0100 ####[facility] [address] [place], [address] Glucose [Mass/Vol] 165 mg/dL High 74-106 [facility] Comment on above: Result Comment: Fast ing Glucose result greater than or equal to 126 mg/dLsuggests DIABETES MELLITUS per A.D.A. criteria. Performed By: #### L 500.2500, L100.0100 ####[facility] [address] [place], [address] Potassium [Moles/Vol] 4.0 mmol/L Normal 3.5-5.1 [facility] Comment on above: Performed By: #### L 500.2500, L100.0100 ####[facility] [address] [place], [address] Sodium [Moles/Vol] 135 mmol/L Low 136-145 [facility] Comment on above: Performed By: #### L 500.2500, L100.0100 ####[facility] [address] [place], [address] Urea nitrogen [Mass/Vol] 16 mg/dL Normal 7-18 [facility] Comment on above: Performed By: #### L 500.2500, L100.0100 ####[facility] [address] [place], [address] Bedside Glucoseon 01-20-2024 FINGERSTICK GLU 165 mg/dL High 74-106 [facility] Comment on above: Result Comment: JOAO ISRAEL OF PATIENT CARE PER NURSING PROTOCOL Performed By: #### L 501.080 ####[facility] [address] [place], [address] CBC W/Diff, Automatedon 12-30 Absolute Lymph 1.51 X10 3/uL Normal 0.83-4.51 [facility] Comment on above: Performed By: #### L 500.2500, L100.0100 ####[facility] [address] [place], [address] Absolute Neut 7.5 X10 3/uL Normal 2.0-7.7 [facility] Comment on above: Performed By: #### L 500.2500, L100.0100 ####[facility] [address] [place], [address] Basophils/100 WBC (Bld) 0.7 % Normal 0-1 [facility] Comment on above: Performed By: #### L 500.2500, L100.0100 ####[facility] [address] [place], [address] Eosinophils/100 WBC (Bld) 3.5 % Normal 0-5 [facility] Comment on above: Performed By: #### L 500.2500, L100.0100 ####[facility] [address] [place], [address] Erythrocyte distribution width (RBC) [Ratio] 15.2 % High 11.6-14.6 [facility] Comment on above: Performed By: #### L 500.2500, L100.0100 ####[facility] [address] [place], [address] Hematocrit (Bld) [Volume fraction] 28.8 % Low 37-47 [facility] Comment on above: Performed By: #### L 500.2500, L100.0100 ####[facility] [address] [place], [address] Hemoglobin (Bld) [Mass/Vol] 8.7 g/dL Low 12.0-15.0 [facility] Comment on above: Performed By: #### L 500.2500, L100.0100 ####[facility] [address] [place], [address] IG% 1.100 High 0.0-0.9 [facility] Comment on above: Result Comment: IG% - Immature Granulocytes (promyelocytes, myelocytes andmetamyelocytes) > 1% indicates that a LEFT SHIFT is Present. Performed By: #### L 500.2500, L100.0100 ####[facility] [address] [place], [address] Lymphocytes/100 WBC (Bld) 14.4 % Low 19-41 [facility] Comment on above: Performed By: #### L 500.2500, L100.0100 ####[facility] [address] [place], [address] MCH (RBC) [Entitic mass] 28.5 pg Normal 27.0-32.0 [facility] Comment on above: Performed By: #### L 500.2500, L100.0100 ####[facility] [address] [place], [address] MCHC (RBC) [Mass/Vol] 30.2 g/dL Low 32-36 [facility] Comment on above: Performed By: #### L 500.2500, L100.0100 ####[facility] [address] [place], [address] MCV (RBC) [Entitic vol] 94.4 fL Normal 81-99 [facility] Comment on above: Performed By: #### L 500.2500, L100.0100 ####[facility] [address] [place], [address] Monocytes/100 WBC (Bld) 9.0 % Normal 0-10 [facility] Comment on above: Performed By: #### L 500.2500, L100.0100 ####[facility] [address] [place], [address] Neutrophils/100 WBC (Bld) 71.3 % High 47-70 [facility] Comment on above: Performed By: #### L 500.2500, L100.0100 ####[facility] [address] [place], [address] Nucleated RBC (Bld) [#/Vol] 0 10*3/uL Normal 0-5 [facility] Comment on above: Performed By: #### L 500.2500, L100.0100 ####[facility] [address] [place], [address] Platelet mean volume (Bld) [Entitic vol] 10.2 fL Normal 6.2-12.0 [facility] Comment on above: Performed By: #### L 500.2500, L100.0100 ####[facility] [address] [place], [address] Platelets (Bld) [#/Vol] 490 10*3/uL High 150-450 [facility] Comment on above: Performed By: #### L 500.2500, L100.0100 ####[facility] [address] [place], [address] RBC (Bld) [#/Vol] 3.05 10*6/uL Low 4.2-5.4 [facility] Comment on above: Performed By: #### L 500.2500, L100.0100 ####[facility] [address] [place], [address] RDW SD 51.8 fl High 35.1-43.9 [facility] Comment on above: Performed By: #### L 500.2500, L100.0100 ####[facility] [address] [place], [address] WBC (Bld) [#/Vol] 10.5 10*3/uL Normal 4.4-11.0 [facility] Comment on above: Performed By: #### L 500.2500, L100.0100 ####[facility] [address] [place], [address] COVID 19 AG RAPID (RN COLLEC T)on 01-20-2024 SARS-CoV-2 (COVID-19) RNA ANKIT+probe Ql (Unsp spec) Normal [facility] Comment on above: Performed By: #### M 100.505 ####[facility] [address] [place], [address] Urinalysis, Completeon 01-19 BACTERIA 2+ /hpf Normal None Seen [facility] Comment on above: Order Comment: VANITA TER SPECIMEN Performed By: #### L 400.0001 ####[facility] [address] [place], [address] Mucus Ql (Urine sed) 2+ /hpf Normal [facility] Comment on above: Order Comment: VANITA TER SPECIMEN Performed By: #### L 400.0001 ####[facility] [address] [place], [address] RBC 5-10 SEEN Normal 0-5 [facility] Comment on above: Order Comment: VANITA TER SPECIMEN Performed By: #### L 400.0001 ####[facility] [address] [place], [address] WBC >100 SEEN Normal 0-5 [facility] Comment on above: Order Comment: VANITA TER SPECIMEN Performed By: #### L 400.0001 ####[facility] [address] [place], [address] Bedside Glucoseon 01-19-2024 FINGERSTICK GLU 194 mg/dL High 74-106 [facility] Comment on above: Result Comment: JOAO GEMENT OF PATIENT CARE PER NURSING PROTOCOL Performed By: #### L 501.080 ####[facility] [address] [place], [address] Urinalysis, Completeon 01-18 EPI,SQUAMOUS 0 SEEN Normal 5-10 [facility] Comment on above: Order Comment: VANITA TER SPECIMEN Performed By: #### L 400.0001 ####[facility] [address] [place], [address] Bedside Glucoseon 01-18-2024 FINGERSTICK GLU 159 mg/dL High 74-106 [facility] Comment on above: Result Comment: JOAO GEMENT OF PATIENT CARE PER NURSING PROTOCOL Performed By: #### L 501.080 ####[facility] [address] [place], [address] Bedside Glucoseon 01-17-2024 FINGERSTICK GLU 163 mg/dL High 74-106 [facility] Comment on above: Result Comment: JOAO GEMENT OF PATIENT CARE PER NURSING PROTOCOL Performed By: #### L 501.080 ####[facility] [address] [place], [address] Bedside Glucoseon 4 FINGERSTICK GLU 145 mg/dL High 74-106 [facility] Comment on above: Result Comment: JOAO GEMENT OF PATIENT CARE PER NURSING PROTOCOL Performed By: #### L 501.080 ####[facility] [address] [place], [address] HIP, UNI W/ Pelvis 2-3 Views on 01-16-2024 HIP, UNI W/ Pelvis 2-3 Views Normal [facility] Bedside Glucoseon 01-15-2024 FINGERSTICK GLU 151 mg/dL High 74-106 [facility] Comment on above: Result Comment: JOAO GEMENT OF PATIENT CARE PER NURSING PROTOCOL Performed By: #### L 501.080 ####[facility] [address] [place], [address] HH, Hemoglobin AND Hematocri ton 01-15-2024 Hematocrit (Bld) [Volume fraction] 26.0 % Low 37-47 [facility] Comment on above: Performed By: #### L 100.0600 ####[facility] [address] [place], [address] Hemoglobin (Bld) [Mass/Vol] 8.2 g/dL Low 12.0-15.0 [facility] Comment on above: Performed By: #### L 100.0600 ####[facility] [address] [place], [address] Bedside Glucoseon 01-14-2024 FINGERSTICK GLU 172 mg/dL High 74-106 [facility] Comment on above: Result Comment: JOAO GEMENT OF PATIENT CARE PER NURSING PROTOCOL Performed By: #### L 501.080 ####[facility] [address] [place], [address] CBC-Complete Blood Cnt No Di ffon 01-14-2024 HCT Normal 37-47 [facility] Comment on above: Result Comment: Canc elled via OM: Order cancelled - Patient discharged Performed By: #### L 100.0500 ####[facility] [address] [place], [address] HGB Normal 12.0-15.0 [facility] Comment on above: Result Comment: Canc elled via OM: Order cancelled - Patient discharged Performed By: #### L 100.0500 ####[facility] [address] [place], [address] MCH Normal 27.0-32.0 [facility] Comment on above: Result Comment: Canc elled via OM: Order cancelled - Patient discharged Performed By: #### L 100.0500 ####[facility] [address] [place], [address] MCHC Normal 32-36 [facility] Comment on above: Result Comment: Canc elled via OM: Order cancelled - Patient discharged Performed By: #### L 100.0500 ####[facility] [address] [place], [address] MCV Normal 81-99 [facility] Comment on above: Result Comment: Canc elled via OM: Order cancelled - Patient discharged Performed By: #### L 100.0500 ####[facility] [address] [place], [address] PLT Normal 150-450 [facility] Comment on above: Result Comment: Canc elled via OM: Order cancelled - Patient discharged Performed By: #### L 100.0500 ####[facility] [address] [place], [address] RBC Normal 4.2-5.4 [facility] Comment on above: Result Comment: Canc elled via OM: Order cancelled - Patient discharged Performed By: #### L 100.0500 ####[facility] [address] [place], [address] RDW CV Normal 11.6-14.6 [facility] Comment on above: Result Comment: Canc elled via OM: Order cancelled - Patient discharged Performed By: #### L 100.0500 ####[facility] [address] [place], [address] RDW SD Normal 35.1-43.9 [facility] Comment on above: Result Comment: Canc elled via OM: Order cancelled - Patient discharged Performed By: #### L 100.0500 ####[facility] [address] [place], [address] WBC Normal 4.4-11.0 [facility] Comment on above: Result Comment: Canc elled via OM: Order cancelled - Patient discharged Performed By: #### L 100.0500 ####[facility] [address] [place], [address] HH, Hemoglobin AND Hematocri ton 01-14-2024 Hematocrit (Bld) [Volume fraction] 26.6 % Low 37-47 [facility] Comment on above: Performed By: #### L 100.0600 ####[facility] [address] [place], [address] Hemoglobin (Bld) [Mass/Vol] 8.2 g/dL Low 12.0-15.0 [facility] Comment on above: Performed By: #### L 100.0600 ####[facility] [address] [place], [address] Basic Metabolic Profile (BMP )on 01-13-2024 BUN/CRE 30.9 RATIO High 10-20 [facility] Comment on above: Performed By: #### L 500.2500, L100.0100 ####[facility] [address] [place], [address] CA,Total 8.5 mg/dL Normal 8.5-10.1 [facility] Comment on above: Performed By: #### L 500.2500, L100.0100 ####[facility] [address] [place], [address] Chloride [Moles/Vol] 105 mmol/L Normal 98-107 [facility] Comment on above: Performed By: #### L 500.2500, L100.0100 ####[facility] [address] [place], [address] CO2 [Moles/Vol] 26.0 mmol/L Normal 21.0-32.0 [facility] Comment on above: Performed By: #### L 500.2500, L100.0100 ####[facility] [address] [place], [address] Creatinine [Mass/Vol] 0.84 mg/dL Normal 0.55-1.02 [facility] Comment on above: Result Comment: The validity of the calculated GFR GFRAA in patients over70 years has not been determined. Clinical correlation isessential. Performed By: #### L 500.2500, L100.0100 ####[facility] [address] [place], [address] ECRCL 59.31 ml/min Normal [facility] Comment on above: Performed By: #### L 500.2500, L100.0100 ####[facility] [address] [place], [address] EST GFR - AA 83 mL/min Normal >60 [facility] Comment on above: Result Comment: Afri can Irish GFR Calc Performed By: #### L 500.2500, L100.0100 ####[facility] [address] [place], [address] GAP 5 Normal 5-15 [facility] Comment on above: Performed By: #### L 500.2500, L100.0100 ####[facility] [address] [place], [address] GFR/1.73 sq M.predicted among non-blacks MDRD (S/P/Bld) [Vol rate/Area] 69 mL/min/{1.73_m2} Normal >60 [facility] Comment on above: Result Comment: Non- GFR Calc Performed By: #### L 500.2500, L100.0100 ####[facility] [address] [place], [address] Glucose [Mass/Vol] 177 mg/dL High 74-106 [facility] Comment on above: Result Comment: Fast ing Glucose result greater than or equal to 126 mg/dLsuggests DIABETES MELLITUS per A.D.A. criteria. Performed By: #### L 500.2500, L100.0100 ####[facility] [address] [place], [address] Potassium [Moles/Vol] 4.2 mmol/L Normal 3.5-5.1 [facility] Comment on above: Performed By: #### L 500.2500, L100.0100 ####[facility] [address] [place], [address] Sodium [Moles/Vol] 136 mmol/L Normal 136-145 [facility] Comment on above: Performed By: #### L 500.2500, L100.0100 ####[facility] [address] [place], [address] Urea nitrogen [Mass/Vol] 26 mg/dL High 7-18 [facility] Comment on above: Performed By: #### L 500.2500, L100.0100 ####[facility] [address] [place], [address] Bedside Glucoseon 01-13-2024 FINGERSTICK GLU 269 mg/dL High 74-106 [facility] Comment on above: Result Comment: JOAO GEMENT OF PATIENT CARE PER NURSING PROTOCOL Performed By: #### L 501.080 ####[facility] [address] [place], [address] FINGERSTICK GLU 250 mg/dL High 74-106 [facility] Comment on above: Result Comment: JOAO GEMENT OF PATIENT CARE PER NURSING PROTOCOL Performed By: #### L 501.080 ####[facility] [address] [place], [address] FINGERSTICK GLU 153 mg/dL High 74-106 [facility] Comment on above: Result Comment: JOAO ISRAEL OF PATIENT CARE PER NURSING PROTOCOL Performed By: #### L 501.080 ####[facility] [address] [place], [address] CBC W/Diff, Automatedon 12-29 PATH REV Reviewed Normal [facility] Comment on above: Result Comment: Neut rophilic leukocytosis.Normocytic anemia.Clinical correlation necessary.Ibrahima Dukes M.D. 01/13/24 AMENDED REPORT 01/13/24 0849 PATH REV previously reported as: September Performed By: #### L 100.0100, L500.2500 ####[facility] [address] [place], [address] Absolute Lymph 1.05 X10 3/uL Normal 0.83-4.51 [facility] Comment on above: Performed By: #### L 500.2500, L100.0100 ####[facility] [address] [place], [address] Absolute Neut 6.4 X10 3/uL Normal 2.0-7.7 [facility] Comment on above: Performed By: #### L 500.2500, L100.0100 ####[facility] [address] [place], [address] Basophils/100 WBC (Bld) 0.7 % Normal 0-1 [facility] Comment on above: Performed By: #### L 500.2500, L100.0100 ####[facility] [address] [place], [address] Eosinophils/100 WBC (Bld) 3.2 % Normal 0-5 [facility] Comment on above: Performed By: #### L 500.2500, L100.0100 ####[facility] [address] [place], [address] Erythrocyte distribution width (RBC) [Ratio] 14.6 % Normal 11.6-14.6 [facility] Comment on above: Performed By: #### L 500.2500, L100.0100 ####[facility] [address] [place], [address] Hematocrit (Bld) [Volume fraction] 27.6 % Low 37-47 [facility] Comment on above: Performed By: #### L 500.2500, L100.0100 ####[facility] [address] [place], [address] Hemoglobin (Bld) [Mass/Vol] 8.7 g/dL Low 12.0-15.0 [facility] Comment on above: Performed By: #### L 500.2500, L100.0100 ####[facility] [address] [place], [address] IG% 0.800 Normal 0.0-0.9 [facility] Comment on above: Result Comment: IG% - Immature Granulocytes (promyelocytes, myelocytes andmetamyelocytes) > 1% indicates that a LEFT SHIFT is Present. Performed By: #### L 500.2500, L100.0100 ####[facility] [address] [place], [address] Lymphocytes/100 WBC (Bld) 11.6 % Low 19-41 [facility] Comment on above: Performed By: #### L 500.2500, L100.0100 ####[facility] [address] [place], [address] MCH (RBC) [Entitic mass] 29.8 pg Normal 27.0-32.0 [facility] Comment on above: Performed By: #### L 500.2500, L100.0100 ####[facility] [address] [place], [address] MCHC (RBC) [Mass/Vol] 31.5 g/dL Low 32-36 [facility] Comment on above: Performed By: #### L 500.2500, L100.0100 ####[facility] [address] [place], [address] MCV (RBC) [Entitic vol] 94.5 fL Normal 81-99 [facility] Comment on above: Performed By: #### L 500.2500, L100.0100 ####[facility] [address] [place], [address] Monocytes/100 WBC (Bld) 13.0 % High 0-10 [facility] Comment on above: Performed By: #### L 500.2500, L100.0100 ####[facility] [address] [place], [address] Neutrophils/100 WBC (Bld) 70.7 % High 47-70 [facility] Comment on above: Performed By: #### L 500.2500, L100.0100 ####[facility] [address] [place], [address] Nucleated RBC (Bld) [#/Vol] 0 10*3/uL Normal 0-5 [facility] Comment on above: Performed By: #### L 500.2500, L100.0100 ####[facility] [address] [place], [address] Platelet mean volume (Bld) [Entitic vol] 10.5 fL Normal 6.2-12.0 [facility] Comment on above: Performed By: #### L 500.2500, L100.0100 ####[facility] [address] [place], [address] Platelets (Bld) [#/Vol] 217 10*3/uL Normal 150-450 [facility] Comment on above: Performed By: #### L 500.2500, L100.0100 ####[facility] [address] [place], [address] RBC (Bld) [#/Vol] 2.92 10*6/uL Low 4.2-5.4 [facility] Comment on above: Performed By: #### L 500.2500, L100.0100 ####[facility] [address] [place], [address] RDW SD 50.4 fl High 35.1-43.9 [facility] Comment on above: Performed By: #### L 500.2500, L100.0100 ####[facility] [address] [place], [address] WBC (Bld) [#/Vol] 9.1 10*3/uL Normal 4.4-11.0 [facility] Comment on above: Performed By: #### L 500.2500, L100.0100 ####[facility] [address] [place], [address] CBC-Complete Blood Cnt No Di ffon 01-13-2024 HCT Normal 37-47 [facility] Comment on above: Result Comment: Canc elled via OM: Order cancelled - Patient discharged Performed By: #### L 100.0500 ####[facility] [address] [place], [address] HGB Normal 12.0-15.0 [facility] Comment on above: Result Comment: Canc elled via OM: Order cancelled - Patient discharged Performed By: #### L 100.0500 ####[facility] [address] [place], [address] MCH Normal 27.0-32.0 [facility] Comment on above: Result Comment: Canc elled via OM: Order cancelled - Patient discharged Performed By: #### L 100.0500 ####[facility] [address] [place], [address] MCHC Normal 32-36 [facility] Comment on above: Result Comment: Canc elled via OM: Order cancelled - Patient discharged Performed By: #### L 100.0500 ####[facility] [address] [place], [address] MCV Normal 81-99 [facility] Comment on above: Result Comment: Canc elled via OM: Order cancelled - Patient discharged Performed By: #### L 100.0500 ####[facility] [address] [place], [address] PLT Normal 150-450 [facility] Comment on above: Result Comment: Canc elled via OM: Order cancelled - Patient discharged Performed By: #### L 100.0500 ####[facility] [address] [place], [address] RBC Normal 4.2-5.4 [facility] Comment on above: Result Comment: Canc elled via OM: Order cancelled - Patient discharged Performed By: #### L 100.0500 ####[facility] [address] [place], [address] RDW CV Normal 11.6-14.6 [facility] Comment on above: Result Comment: Canc elled via OM: Order cancelled - Patient discharged Performed By: #### L 100.0500 ####[facility] [address] [place], [address] RDW SD Normal 35.1-43.9 [facility] Comment on above: Result Comment: Canc elled via OM: Order cancelled - Patient discharged Performed By: #### L 100.0500 ####[facility] [address] [place], [address] WBC Normal 4.4-11.0 [facility] Comment on above: Result Comment: Canc elled via OM: Order cancelled - Patient discharged Performed By: #### L 100.0500 ####[facility] [address] [place], [address] COVID 19 AG RAPID (ISMAEL Denise)on 01-13-2024 SARS-CoV-2 (COVID-19) RNA ANKIT+probe Ql (Unsp spec) SARS-CoV-2 (COVID 19) Negative RAPID METHOD BinaxNow COVID19 Ag Card Normal [facility] Comment on above: Performed By: #### M 100.505 ####[facility] [address] [place], [address] Basic Metabolic Profile (BMP )on 01-12-2024 BUN/CRE 21.3 RATIO High 10-20 [facility] Comment on above: Performed By: #### L 100.0100, L500.2500 ####[facility] [address] [place], [address] CA,Total 8.0 mg/dL Low 8.5-10.1 [facility] Comment on above: Performed By: #### L 100.0100, L500.2500 ####[facility] [address] [place], [address] Chloride [Moles/Vol] 106 mmol/L Normal 98-107 [facility] Comment on above: Performed By: #### L 100.0100, L500.2500 ####[facility] [address] [place], [address] CO2 [Moles/Vol] 22.0 mmol/L Normal 21.0-32.0 [facility] Comment on above: Performed By: #### L 100.0100, L500.2500 ####[facility] [address] [place], [address] Creatinine [Mass/Vol] 1.36 mg/dL High 0.55-1.02 [facility] Comment on above: Result Comment: The validity of the calculated GFR GFRAA in patients over70 years has not been determined. Clinical correlation isessential. Performed By: #### L 100.0100, L500.2500 ####[facility] [address] [place], [address] ECRCL 36.54 ml/min Normal [facility] Comment on above: Performed By: #### L 100.0100, L500.2500 ####[facility] [address] [place], [address] EST GFR - AA 48 mL/min Low >60 [facility] Comment on above: Result Comment: Afri can Irish GFR Calc Performed By: #### L 100.0100, L500.2500 ####[facility] [address] [place], [address] GAP 8 Normal 5-15 [facility] Comment on above: Performed By: #### L 100.0100, L500.2500 ####[facility] [address] [place], [address] GFR/1.73 sq M.predicted among non-blacks MDRD (S/P/Bld) [Vol rate/Area] 40 mL/min/{1.73_m2} Low >60 [facility] Comment on above: Result Comment: Non- GFR Calc Performed By: #### L 100.0100, L500.2500 ####[facility] [address] [place], [address] Glucose [Mass/Vol] 191 mg/dL High 74-106 [facility] Comment on above: Result Comment: Fast ing Glucose result greater than or equal to 126 mg/dLsuggests DIABETES MELLITUS per A.D.A. criteria. Performed By: #### L 100.0100, L500.2500 ####[facility] [address] [place], [address] Potassium [Moles/Vol] 4.2 mmol/L Normal 3.5-5.1 [facility] Comment on above: Performed By: #### L 100.0100, L500.2500 ####[facility] [address] [place], [address] Sodium [Moles/Vol] 136 mmol/L Normal 136-145 [facility] Comment on above: Performed By: #### L 100.0100, L500.2500 ####[facility] [address] [place], [address] Urea nitrogen [Mass/Vol] 29 mg/dL High 7-18 [facility] Comment on above: Performed By: #### L 100.0100, L500.2500 ####[facility] [address] [place], [address] Bedside Glucoseon 01-12-2024 FINGERSTICK GLU 204 mg/dL High [address] [facility] Comment on above: Result Comment: JOAO GEMENT OF PATIENT CARE PER NURSING PROTOCOL Performed By: #### L 501.080 ####[facility] [address] [place], [address] FINGERSTICK GLU 179 mg/dL High [address] Comment on above: Result Comment: JOAO GEMENT OF PATIENT CARE PER NURSING PROTOCOL Performed By: #### L 501.080 ####[facility] [address] [place], [address] FINGERSTICK GLU 174 mg/dL High 74-106 [facility] Comment on above: Result Comment: JOAO GEMENT OF PATIENT CARE PER NURSING PROTOCOL Performed By: #### L 501.080 ####[facility] [address] [place], [address] Basic Metabolic Profile (BMP )on 01-11-2024 BUN Normal 7-18 [facility] Comment on above: Result Comment: OVER LAPPING TESTS- CMP ORDERED FOR MORNING RUN Performed By: #### L 500.2500 ####[facility] [address] [place], [address] BUN/CRE Normal 10-20 [facility] Comment on above: Result Comment: OVER LAPPING TESTS- CMP ORDERED FOR MORNING RUN Performed By: #### L 500.2500 ####[facility] [address] [place], [address] CA,Total Normal 8.5-10.1 [facility] Comment on above: Result Comment: OVER LAPPING TESTS- CMP ORDERED FOR MORNING RUN Performed By: #### L 500.2500 ####[facility] [address] [place], [address] CL Normal 98-107 [facility] Comment on above: Result Comment: OVER LAPPING TESTS- CMP ORDERED FOR MORNING RUN Performed By: #### L 500.2500 ####[facility] [address] [place], [address] CO2 Normal 21.0-32.0 [facility] Comment on above: Result Comment: OVER LAPPING TESTS- CMP ORDERED FOR MORNING RUN Performed By: #### L 500.2500 ####[facility] [address] [place], [address] CREAT,SERUM Normal 0.55-1.02 [facility] Comment on above: Result Comment: OVER LAPPING TESTS- CMP ORDERED FOR MORNING RUN Performed By: #### L 500.2500 ####[facility] [address] [place], [address] EST GFR Normal >60 [facility] Comment on above: Result Comment: OVER LAPPING TESTS- CMP ORDERED FOR MORNING RUN Performed By: #### L 500.2500 ####[facility] [address] [place], [address] EST GFR - AA Normal >60 [facility] Comment on above: Result Comment: OVER LAPPING TESTS- CMP ORDERED FOR MORNING RUN Performed By: #### L 500.2500 ####[facility] [address] [place], [address] GAP Normal 5-15 [facility] Comment on above: Result Comment: OVER LAPPING TESTS- CMP ORDERED FOR MORNING RUN Performed By: #### L 500.2500 ####[facility] [address] [place], [address] GLU Normal 74-106 [facility] Comment on above: Result Comment: OVER LAPPING TESTS- CMP ORDERED FOR MORNING RUN Performed By: #### L 500.2500 ####[facility] [address] [place], [address] Potassium Normal 3.5-5.1 [facility] Comment on above: Result Comment: OVER LAPPING TESTS- CMP ORDERED FOR MORNING RUN Performed By: #### L 500.2500 ####[facility] [address] [place], [address] Basic Metabolic Profile (BMP) Normal 136-145 [facility] Comment on above: Result Comment: OVER LAPPING TESTS- CMP ORDERED FOR MORNING RUN Performed By: #### L 500.2500 ####[facility] [address] [place], [address] Bedside Glucoseon 01-10-2023 FINGERSTICK GLU 231 mg/dL High 74-106 [facility] Comment on above: Result Comment: JOAO GEMENT OF PATIENT CARE PER NURSING PROTOCOL Performed By: #### L 501.080 ####[facility] [address] [place], [address] FINGERSTICK GLU 154 mg/dL High 74-106 [facility] Comment on above: Result Comment: JOAO GEMENT OF PATIENT CARE PER NURSING PROTOCOL Performed By: #### L 501.080 ####[facility] [address] [place], [address] FINGERSTICK GLU 181 mg/dL High 74-106 [facility] Comment on above: Result Comment: JOAO GEMENT OF PATIENT CARE PER NURSING PROTOCOL Performed By: #### L 501.080 ####[facility] [address] [place], [address] CBC W/Diff, Automatedon 08- Absolute Lymph 1.25 X10 3/uL Normal 0.83-4.51 [facility] Comment on above: Performed By: #### L 100.0100, L501.9520, L500.4050, L501.2300, L501.5200 ####[facility] [address] [place], [address] Absolute Neut 10.9 X10 3/uL High 2.0-7.7 [facility] Comment on above: Performed By: #### L 100.0100, L501.9520, L500.4050, L501.2300, L501.5200 ####[facility] [address] [place], [address] Basophils/100 WBC (Bld) 0.5 % Normal 0-1 [facility] Comment on above: Performed By: #### L 100.0100, L501.9520, L500.4050, L501.2300, L501.5200 ####[facility] [address] [place], [address] Eosinophils/100 WBC (Bld) 0.1 % Normal 0-5 [facility] Comment on above: Performed By: #### L 100.0100, L501.9520, L500.4050, L501.2300, L501.5200 ####[facility] [address] [place], [address] Erythrocyte distribution width (RBC) [Ratio] 14.5 % Normal 11.6-14.6 [facility] Comment on above: Performed By: #### L 100.0100, L501.9520, L500.4050, L501.2300, L501.5200 ####[facility] [address] [place], [address] Hematocrit (Bld) [Volume fraction] 37.0 % Normal 37-47 [facility] Comment on above: Performed By: #### L 100.0100, L501.9520, L500.4050, L501.2300, L501.5200 ####[facility] [address] [place], [address] Hemoglobin (Bld) [Mass/Vol] 11.7 g/dL Low 12.0-15.0 [facility] Comment on above: Performed By: #### L 100.0100, L501.9520, L500.4050, L501.2300, L501.5200 ####[facility] [address] [place], [address] IG% 0.700 Normal 0.0-0.9 [facility] Comment on above: Result Comment: IG% - Immature Granulocytes (promyelocytes, myelocytes andmetamyelocytes) > 1% indicates that a LEFT SHIFT is Present. Performed By: #### L 100.0100, L501.9520, L500.4050, L501.2300, L501.5200 ####[facility] [address] [place], [address] Lymphocytes/100 WBC (Bld) 9.3 % Low 19-41 [facility] Comment on above: Performed By: #### L 100.0100, L501.9520, L500.4050, L501.2300, L501.5200 ####[facility] [address] [place], [address] MCH (RBC) [Entitic mass] 29.2 pg Normal 27.0-32.0 [facility] Comment on above: Performed By: #### L 100.0100, L501.9520, L500.4050, L501.2300, L501.5200 ####[facility] [address] [place], [address] MCHC (RBC) [Mass/Vol] 31.6 g/dL Low 32-36 [facility] Comment on above: Performed By: #### L 100.0100, L501.9520, L500.4050, L501.2300, L501.5200 ####[facility] [address] [place], [address] MCV (RBC) [Entitic vol] 92.3 fL Normal 81-99 [facility] Comment on above: Performed By: #### L 100.0100, L501.9520, L500.4050, L501.2300, L501.5200 ####[facility] [address] [place], [address] Monocytes/100 WBC (Bld) 8.5 % Normal 0-10 [facility] Comment on above: Performed By: #### L 100.0100, L501.9520, L500.4050, L501.2300, L501.5200 ####[facility] [address] [place], [address] Neutrophils/100 WBC (Bld) 80.9 % High 47-70 [facility] Comment on above: Performed By: #### L 100.0100, L501.9520, L500.4050, L501.2300, L501.5200 ####[facility] [address] [place], [address] Nucleated RBC (Bld) [#/Vol] 0 10*3/uL Normal 0-5 [facility] Comment on above: Performed By: #### L 100.0100, L501.9520, L500.4050, L501.2300, L501.5200 ####[facility] [address] [place], [address] Platelet mean volume (Bld) [Entitic vol] 11.4 fL Normal 6.2-12.0 [facility] Comment on above: Performed By: #### L 100.0100, L501.9520, L500.4050, L501.2300, L501.5200 ####[facility] [address] [place], [address] Platelets (Bld) [#/Vol] 289 10*3/uL Normal 150-450 [facility] Comment on above: Performed By: #### L 100.0100, L501.9520, L500.4050, L501.2300, L501.5200 ####[facility] [address] [place], [address] RBC (Bld) [#/Vol] 4.01 10*6/uL Low 4.2-5.4 [facility] Comment on above: Performed By: #### L 100.0100, L501.9520, L500.4050, L501.2300, L501.5200 ####[facility] [address] [place], [address] RDW SD 48.6 fl High 35.1-43.9 [facility] Comment on above: Performed By: #### L 100.0100, L501.9520, L500.4050, L501.2300, L501.5200 ####[facility] [address] [place], [address] WBC (Bld) [#/Vol] 13.5 10*3/uL High 4.4-11.0 [facility] Comment on above: Performed By: #### L 100.0100, L501.9520, L500.4050, L501.2300, L501.5200 ####[facility] [address] [place], [address] Comprehensive Metabolic Prof [facility] 01-11-2024 Albumin [Mass/Vol] 2.7 g/dL Low 3.2-5.0 [facility] Comment on above: Performed By: #### L 100.0100, L501.9520, L500.4050, L501.2300, L501.5200 ####[facility] [address] [place], [address] Albumin/Globulin [Mass ratio] 0.6 {ratio} Low 0.9-2.4 [facility] Comment on above: Performed By: #### L 100.0100, L501.9520, L500.4050, L501.2300, L501.5200 ####[facility] [address] [place], [address] ALK P 123 U/L High 45-117 [facility] Comment on above: Performed By: #### L 100.0100, L501.9520, L500.4050, L501.2300, L501.5200 ####[facility] [address] [place], [address] ALT [Catalytic activity/Vol] 14 U/L Normal 13-56 [facility] Comment on above: Performed By: #### L 100.0100, L501.9520, L500.4050, L501.2300, L501.5200 ####[facility] [address] [place], [address] AST [Catalytic activity/Vol] 11 U/L Low 15-37 [facility] Comment on above: Performed By: #### L 100.0100, L501.9520, L500.4050, L501.2300, L501.5200 ####[facility] [address] [place], [address] Bilirubin [Mass/Vol] 0.40 mg/dL Normal 0.20-1.00 [facility] Comment on above: Result Comment: For patients on eltrombopag therapy, use of Dimension [place] TBIL is not recommended. Performed By: #### L 100.0100, L501.9520, L500.4050, L501.2300, L501.5200 ####[facility] [address] [place], [address] BUN/CRE 29.8 RATIO High 10-20 [facility] Comment on above: Performed By: #### L 100.0100, L501.9520, L500.4050, L501.2300, L501.5200 ####[facility] [address] [place], [address] CA,Total 8.9 mg/dL Normal 8.5-10.1 [facility] Comment on above: Performed By: #### L 100.0100, L501.9520, L500.4050, L501.2300, L501.5200 ####[facility] [address] [place], [address] Chloride [Moles/Vol] 107 mmol/L Normal 98-107 [facility] Comment on above: Performed By: #### L 100.0100, L501.9520, L500.4050, L501.2300, L501.5200 ####[facility] [address] [place], [address] CO2 [Moles/Vol] 23.0 mmol/L Normal 21.0-32.0 [facility] Comment on above: Performed By: #### L 100.0100, L501.9520, L500.4050, L501.2300, L501.5200 ####[facility] [address] [place], [address] Creatinine [Mass/Vol] 0.80 mg/dL Normal 0.55-1.02 [facility] Comment on above: Result Comment: The validity of the calculated GFR GFRAA in patients over70 years has not been determined. Clinical correlation isessential. Performed By: #### L 100.0100, L501.9520, L500.4050, L501.2300, L501.5200 ####[facility] [address] [place], [address] ECRCL 61.73 ml/min Normal [facility] Comment on above: Performed By: #### L 100.0100, L501.9520, L500.4050, L501.2300, L501.5200 ####[facility] [address] [place], [address] EST GFR - AA 88 mL/min Normal >60 [facility] Comment on above: Result Comment: Afri can Irish GFR Calc Performed By: #### L 100.0100, L501.9520, L500.4050, L501.2300, L501.5200 ####[facility] [address] [place], [address] GAP 7 Normal 5-15 [facility] Comment on above: Performed By: #### L 100.0100, L501.9520, L500.4050, L501.2300, L501.5200 ####[facility] [address] [place], [address] GFR/1.73 sq M.predicted among non-blacks MDRD (S/P/Bld) [Vol rate/Area] 73 mL/min/{1.73_m2} Normal >60 [facility] Comment on above: Result Comment: Non- GFR Calc Performed By: #### L 100.0100, L501.9520, L500.4050, L501.2300, L501.5200 ####[facility] [address] [place], [address] Globulin (S) [Mass/Vol] 4.2 g/dL Normal 2.2-4.2 [facility] Comment on above: Performed By: #### L 100.0100, L501.9520, L500.4050, L501.2300, L501.5200 ####[facility] [address] [place], [address] Glucose [Mass/Vol] 198 mg/dL High 74-106 [facility] Comment on above: Result Comment: Fast ing Glucose result greater than or equal to 126 mg/dLsuggests DIABETES MELLITUS per A.D.A. criteria. Performed By: #### L 100.0100, L501.9520, L500.4050, L501.2300, L501.5200 ####[facility] [address] [place], [address] Potassium [Moles/Vol] 3.8 mmol/L Normal 3.5-5.1 [facility] Comment on above: Performed By: #### L 100.0100, L501.9520, L500.4050, L501.2300, L501.5200 ####[facility] [address] [place], [address] Sodium [Moles/Vol] 137 mmol/L Normal 136-145 [facility] Comment on above: Performed By: #### L 100.0100, L501.9520, L500.4050, L501.2300, L501.5200 ####[facility] [address] [place], [address] T PROT 6.9 g/dL Normal 6.4-8.2 [facility] Comment on above: Performed By: #### L 100.0100, L501.9520, L500.4050, L501.2300, L501.5200 ####[facility] [address] [place], [address] Urea nitrogen [Mass/Vol] 24 mg/dL High 7-18 [facility] Comment on above: Performed By: #### L 100.0100, L501.9520, L500.4050, L501.2300, L501.5200 ####[facility] [address] [place], [address] Consultation - Orthopedicson 01-11-2024 Consultation - Orthopedics Normal [facility] Hemoglobin A1con 01-11-2024 HbA1c (Bld) [Mass fraction] 7.0 % High 3.8-5.6 [facility] Comment on above: Result Comment: Norm al < 5.7 % Prediabetic 5.7 - 6.4 % Diabetic >or= 6.5 % Please note range changes. Performed By: #### L 501.9985 ####[facility] [address] [place], [address] Hip Min 2 Views (Portable)on 01-11-2024 Hip Min 2 Views (Portable) Normal [facility] MR/POSTOP.ANEon 01-11-2024 MR/POSTOP.ANE Normal [facility] MR/BPWGUAQQ0ed 01-11-2024 MR/POSTOPAN2 Normal [facility] Magnesiumon 01-11-2024 Magnesium [Mass/Vol] 2.1 mg/dL Normal 1.6-2.6 [facility] Comment on above: Performed By: #### L 100.0100, L501.9520, L500.4050, L501.2300, L501.5200 ####[facility] [address] [place], [address] Operative Reporton Operative Report Normal [facility] Phosphoruson 01-11-2024 Phosphate [Mass/Vol] 3.8 mg/dL Normal 2.5-4.9 [facility] Comment on above: Performed By: #### L 100.0100, L501.9520, L500.4050, L501.2300, L501.5200 ####[facility] [address] [place], [address] Thyroid Stim Hormone (TSH)on 01-11-2024 TSH 1.34 uIU/mL Normal 0.358-3.74 [facility] Comment on above: Performed By: #### L 100.0100, L501.9520, L500.4050, L501.2300, L501.5200 ####[facility] [address] [place], [address] Type AND Screenon 01-11-2024 Ab SCREEN GEL Negative Normal [facility] Comment on above: Order Comment: REDRA W. PREVIOUS SPECIMEN REJECTED DUE TOMISLABELED. 01/11/24 [id number] HIP Performed By: #### B TS ####[facility] [address] [place], [place], [address] ABO and Rh group Nom (Bld) Blood group O Rh(D) positive Normal [facility] Comment on above: Order Comment: REDRA W. PREVIOUS SPECIMEN REJECTED DUE TOMISLABELED. 01/11/24 [id number] HIP Performed By: #### B TS ####[facility] [address] [place], [place], [address] ANTI A Not performed Normal [facility] Comment on above: Order Comment: GET @ BACK TO ME. ALSO PER RN, SURGEON HAS NOT SEEN PT YET SOT S @NOT URGENT AT THIS TIME. 71501/11/24 [facility] Result Comment: NAME DISCREPANCY. PATIENT STATES THERE IS AN E ON THE END OFHER FIRST NAME. DOCUMENTS SHOW BOTH ACCORDING TO RACHEL).REGISTRATION GOING BY DRIVERS LICENSE. PT TO BE REDRAWN DUETO MISPELLING. Performed By: #### B TS ####[facility] [address] [place], [place], [address] ANTI B Not performed Normal [facility] Comment on above: Order Comment: GET @ BACK TO ME. ALSO PER RN, SURGEON HAS NOT SEEN PT YET SOT S @NOT URGENT AT THIS TIME. 71501/11/24 [facility] Result Comment: NAME DISCREPANCY. PATIENT STATES THERE IS AN E ON THE END OFHER FIRST NAME. DOCUMENTS SHOW BOTH ACCORDING TO ISMAEL(SILVER).REGISTRATION GOING BY DRIVERS LICENSE. PT TO BE REDRAWN DUETO MISPELLING. Performed By: #### B TS ####[facility] [address] [place], [place], [address] ANTI D Not performed Normal [facility] Comment on above: Order Comment: GET @ BACK TO ME. ALSO PER RN, SURGEON HAS NOT SEEN PT YET SOT S @NOT URGENT AT THIS TIME. 71501/11/24 [facility] Result Comment: NAME DISCREPANCY. PATIENT STATES THERE IS AN E ON THE END OFHER FIRST NAME. DOCUMENTS SHOW BOTH ACCORDING TO RACHEL).REGISTRATION GOING BY DRIVERS LICENSE. PT TO BE REDRAWN DUETO MISPELLING. Performed By: #### B TS ####[facility] [address] [place], [place], [address] BLD TYPE RECHEK Not performed Normal [facility] Comment on above: Order Comment: GET @ BACK TO ME. ALSO PER RN, SURGEON HAS NOT SEEN PT YET SOT S @NOT URGENT AT THIS TIME. 71501/11/24 [facility] Result Comment: NAME DISCREPANCY. PATIENT STATES THERE IS AN E ON THE END OFHER FIRST NAME. DOCUMENTS SHOW BOTH ACCORDING TO RACHEL).REGISTRATION GOING BY DRIVERS LICENSE. PT TO BE REDRAWN DUETO MISPELLING. Performed By: #### B TS ####[facility] [address] [place], [address] A1 CELL Not performed [facility] Comment on above: Order Comment: GET @ BACK TO ME. ALSO PER RN, SURGEON HAS NOT SEEN PT YET SOT S @NOT URGENT AT THIS TIME. 71501/11/24 [facility] Result Comment: NAME DISCREPANCY. PATIENT STATES THERE IS AN E ON THE END OFHER FIRST NAME. DOCUMENTS SHOW BOTH ACCORDING TO RACHEL).REGISTRATION GOING BY DRIVERS LICENSE. PT TO BE REDRAWN DUETO MISPELLING. Performed By: #### B TS ####[facility] [address] [place], [address] Ab SCREEN GEL Not performed Normal [facility] Comment on above: Order Comment: GET @ BACK TO ME. ALSO PER RN, SURGEON HAS NOT SEEN PT YET SOT S @NOT URGENT AT THIS TIME. 71501/11/24 [facility] Result Comment: NAME DISCREPANCY. PATIENT STATES THERE IS AN E ON THE END OFHER FIRST NAME. DOCUMENTS SHOW BOTH ACCORDING TO RACHEL).REGISTRATION GOING BY DRIVERS LICENSE. PT TO BE REDRAWN DUETO MISPELLING. Performed By: #### B TS ####[facility] [address] [place], [place], [address] ABO and Rh group Nom (Bld) Test Not Performed Normal [facility] Comment on above: Order Comment: GET @ BACK TO ME. ALSO PER RN, SURGEON HAS NOT SEEN PT YET SOT S @NOT URGENT AT THIS TIME. 71501/11/24 [facility] Result Comment: NAME DISCREPANCY. PATIENT STATES THERE IS AN E ON THE END OFHER FIRST NAME. DOCUMENTS SHOW BOTH ACCORDING TO ISMAEL(SILVER).REGISTRATION GOING BY DRIVERS LICENSE. PT TO BE REDRAWN DUETO MISPELLING. Performed By: #### B TS ####[facility] [address] [place], [place], [id number] ANTI A Not performed Normal [facility] Comment on above: Order Comment: GET @ BACK TO ME. ALSO PER RN, SURGEON HAS NOT SEEN PT YET SOT S @NOT URGENT AT THIS TIME. 71501/11/24 [facility]CS Result Comment: NAME DISCREPANCY. PATIENT STATES THERE IS AN E ON THE END OFHER FIRST NAME. DOCUMENTS SHOW BOTH ACCORDING TO RACHEL).REGISTRATION GOING BY DRIVERS LICENSE. PT TO BE REDRAWN DUETO MISPELLING. Performed By: #### B TS ####[facility] [address] [place], [address] ANTI B Not performed Normal [facility] Comment on above: Order Comment: GET @ BACK TO ME. ALSO PER RN, SURGEON HAS NOT SEEN PT YET SOT S @NOT URGENT AT THIS TIME. 71501/11/24 KCS Result Comment: NAME DISCREPANCY. PATIENT STATES THERE IS AN E ON THE END OFHER FIRST NAME. DOCUMENTS SHOW BOTH ACCORDING TO RACHEL).REGISTRATION GOING BY DRIVERS LICENSE. PT TO BE REDRAWN DUETO MISPELLING. Performed By: #### B TS ####[facility] [address] [place], [address] ANTI D Not performed Normal [facility] Comment on above: Order Comment: GET @ BACK TO ME. ALSO PER RN, SURGEON HAS NOT SEEN PT YET SOT S @NOT URGENT AT THIS TIME. 71501/11/24 KCS Result Comment: NAME DISCREPANCY. PATIENT STATES THERE IS AN E ON THE END OFHER FIRST NAME. DOCUMENTS SHOW BOTH ACCORDING TO RN(SILVER).REGISTRATION GOING BY DRIVERS LICENSE. PT TO BE REDRAWN DUETO MISPELLING. Performed By: #### B TS ####[facility] [address] [place], [address] B CELLS Not performed Normal [facility] Comment on above: Order Comment: GET @ BACK TO ME. ALSO PER RN, SURGEON HAS NOT SEEN PT YET SOT S @NOT URGENT AT THIS TIME. 71501/11/24 KCS Result Comment: NAME DISCREPANCY. PATIENT STATES THERE IS AN E ON THE END OFHER FIRST NAME. DOCUMENTS SHOW BOTH ACCORDING TO RNCIRA).REGISTRATION GOING BY DRIVERS LICENSE. PT TO BE REDRAWN DUETO MISPELLING. Performed By: #### B TS ####[facility] [address] [place], [address] 12 Lead EKGon 01-10-2024 12 Lead EKG Normal [facility] CBC W/Diff, Automatedon 12-29 Absolute Lymph 1.56 X10 3/uL Normal 0.83-4.51 [facility] Comment on above: Performed By: #### L 300.3900, L500.4050, L300.4310, L100.0100 ####[facility] [address] [place], [address] Absolute Neut 7.5 X10 3/uL Normal 2.0-7.7 [facility] Comment on above: Performed By: #### L 300.3900, L500.4050, L300.4310, L100.0100 ####[facility] [address] [place], [address] Basophils/100 WBC (Bld) 0.7 % Normal 0-1 [facility] Comment on above: Performed By: #### L 300.3900, L500.4050, L300.4310, L100.0100 ####[facility] [address] [place], [address] Eosinophils/100 WBC (Bld) 1.7 % Normal 0-5 [facility] Comment on above: Performed By: #### L 300.3900, L500.4050, L300.4310, L100.0100 ####[facility] [address] [place], [address] Erythrocyte distribution width (RBC) [Ratio] 14.5 % Normal 11.6-14.6 [facility] Comment on above: Performed By: #### L 300.3900, L500.4050, L300.4310, L100.0100 ####[facility] [address] [place], [address] Hematocrit (Bld) [Volume fraction] 40.8 % Normal 37-47 [facility] Comment on above: Performed By: #### L 300.3900, L500.4050, L300.4310, L100.0100 ####[facility] [address] [place], [address] Hemoglobin (Bld) [Mass/Vol] 13.0 g/dL Normal 12.0-15.0 [facility] Comment on above: Performed By: #### L 300.3900, L500.4050, L300.4310, L100.0100 ####[facility] [address] [place], [address] IG% 0.700 Normal 0.0-0.9 [facility] Comment on above: Result Comment: IG% - Immature Granulocytes (promyelocytes, myelocytes andmetamyelocytes) > 1% indicates that a LEFT SHIFT is Present. Performed By: #### L 300.3900, L500.4050, L300.4310, L100.0100 ####[facility] [address] [place], [address] Lymphocytes/100 WBC (Bld) 15.1 % Low 19-41 [facility] Comment on above: Performed By: #### L 300.3900, L500.4050, L300.4310, L100.0100 ####[facility] [address] [place], [address] MCH (RBC) [Entitic mass] 28.8 pg Normal 27.0-32.0 [facility] Comment on above: Performed By: #### L 300.3900, L500.4050, L300.4310, L100.0100 ####[facility] [address] [place], [address] MCHC (RBC) [Mass/Vol] 31.9 g/dL Low 32-36 [facility] Comment on above: Performed By: #### L 300.3900, L500.4050, L300.4310, L100.0100 ####[facility] [address] [place], [address] MCV (RBC) [Entitic vol] 90.5 fL Normal 81-99 [facility] Comment on above: Performed By: #### L 300.3900, L500.4050, L300.4310, L100.0100 ####[facility] [address] [place], [address] Monocytes/100 WBC (Bld) 9.3 % Normal 0-10 [facility] Comment on above: Performed By: #### L 300.3900, L500.4050, L300.4310, L100.0100 ####[facility] [address] [place], [address] Neutrophils/100 WBC (Bld) 72.5 % High 47-70 [facility] Comment on above: Performed By: #### L 300.3900, L500.4050, L300.4310, L100.0100 ####[facility] [address] [place], [address] Nucleated RBC (Bld) [#/Vol] 0 10*3/uL Normal 0-5 [facility] Comment on above: Performed By: #### L 300.3900, L500.4050, L300.4310, L100.0100 ####[facility] [address] [place], [address] Platelet mean volume (Bld) [Entitic vol] 10.8 fL Normal 6.2-12.0 [facility] Comment on above: Performed By: #### L 300.3900, L500.4050, L300.4310, L100.0100 ####[facility] [address] [place], [address] Platelets (Bld) [#/Vol] 322 10*3/uL Normal 150-450 [facility] Comment on above: Performed By: #### L 300.3900, L500.4050, L300.4310, L100.0100 ####[facility] [address] [place], [address] RBC (Bld) [#/Vol] 4.51 10*6/uL Normal 4.2-5.4 [facility] Comment on above: Performed By: #### L 300.3900, L500.4050, L300.4310, L100.0100 ####[facility] [address] [place], [address] RDW SD 47.7 fl High 35.1-43.9 [facility] Comment on above: Performed By: #### L 300.3900, L500.4050, L300.4310, L100.0100 ####[facility] [address] [place], [address] WBC (Bld) [#/Vol] 10.4 10*3/uL Normal 4.4-11.0 [facility] Comment on above: Performed By: #### L 300.3900, L500.4050, L300.4310, L100.0100 ####[facility] [address] [place], [address] Chest 1 View (Portable)on Chest 1 View (Portable) Normal [facility] Comprehensive Metabolic Prof ilon 01-10-2024 Albumin [Mass/Vol] 3.0 g/dL Low 3.2-5.0 [facility] Comment on above: Performed By: #### L 300.3900, L500.4050, L300.4310, L100.0100 ####[facility] [address] [place], [address] Albumin/Globulin [Mass ratio] 0.7 {ratio} Low 0.9-2.4 [facility] Comment on above: Performed By: #### L 300.3900, L500.4050, L300.4310, L100.0100 ####[facility] [address] [place], [address] ALK P 130 U/L High 45-117 [facility] Comment on above: Performed By: #### L 300.3900, L500.4050, L300.4310, L100.0100 ####[facility] [address] [place], [address] ALT [Catalytic activity/Vol] 18 U/L Normal 13-56 [facility] Comment on above: Performed By: #### L 300.3900, L500.4050, L300.4310, L100.0100 ####[facility] [address] [place], [address] AST [Catalytic activity/Vol] 13 U/L Low 15-37 [facility] Comment on above: Performed By: #### L 300.3900, L500.4050, L300.4310, L100.0100 ####[facility] [address] [place], [address] Bilirubin [Mass/Vol] 0.30 mg/dL Normal 0.20-1.00 [facility] Comment on above: Result Comment: For patients on eltrombopag therapy, use of Dimension [place] TBIL is not recommended. Performed By: #### L 300.3900, L500.4050, L300.4310, L100.0100 ####[facility] [address] [place], [address] BUN/CRE 36.1 RATIO High 10-20 [facility] Comment on above: Performed By: #### L 300.3900, L500.4050, L300.4310, L100.0100 ####[facility] [address] [place], [address] CA,Total 9.1 mg/dL Normal 8.5-10.1 [facility] Comment on above: Performed By: #### L 300.3900, L500.4050, L300.4310, L100.0100 ####[facility] [address] [place], [address] Chloride [Moles/Vol] 105 mmol/L Normal 98-107 [facility] Comment on above: Performed By: #### L 300.3900, L500.4050, L300.4310, L100.0100 ####[facility] [address] [place], [address] CO2 [Moles/Vol] 25.0 mmol/L Normal 21.0-32.0 [facility] Comment on above: Performed By: #### L 300.3900, L500.4050, L300.4310, L100.0100 ####[facility] [address] [place], [address] Creatinine [Mass/Vol] 0.64 mg/dL Normal 0.55-1.02 [facility] Comment on above: Result Comment: The validity of the calculated GFR GFRAA in patients over70 years has not been determined. Clinical correlation isessential. Performed By: #### L 300.3900, L500.4050, L300.4310, L100.0100 ####[facility] [address] [place], [address] ECRCL 62.57 ml/min Normal [facility] Comment on above: Performed By: #### L 300.3900, L500.4050, L300.4310, L100.0100 ####[facility] [address] [place], [address] EST GFR - AA 115 mL/min Normal >60 [facility] Comment on above: Result Comment: Afri can Irish GFR Calc Performed By: #### L 300.3900, L500.4050, L300.4310, L100.0100 ####[facility] [address] [place], [address] GAP 5 Normal 5-15 [facility] Comment on above: Performed By: #### L 300.3900, L500.4050, L300.4310, L100.0100 ####[facility] [address] [place], [address] GFR/1.73 sq M.predicted among non-blacks MDRD (S/P/Bld) [Vol rate/Area] 95 mL/min/{1.73_m2} Normal >60 [facility] Comment on above: Result Comment: Non- GFR Calc Performed By: #### L 300.3900, L500.4050, L300.4310, L100.0100 ####[facility] [address] [place], [address] Globulin (S) [Mass/Vol] 4.5 g/dL High 2.2-4.2 [facility] Comment on above: Performed By: #### L 300.3900, L500.4050, L300.4310, L100.0100 ####[facility] [address] [place], [address] Glucose [Mass/Vol] 168 mg/dL High 74-106 [facility] Comment on above: Result Comment: Fast ing Glucose result greater than or equal to 126 mg/dLsuggests DIABETES MELLITUS per A.D.A. criteria. Performed By: #### L 300.3900, L500.4050, L300.4310, L100.0100 ####[facility] [address] [place], [address] Potassium [Moles/Vol] 3.7 mmol/L Normal 3.5-5.1 [facility] Comment on above: Performed By: #### L 300.3900, L500.4050, L300.4310, L100.0100 ####[facility] [address] [place], [address] Sodium [Moles/Vol] 135 mmol/L Low 136-145 [facility] Comment on above: Performed By: #### L 300.3900, L500.4050, L300.4310, L100.0100 ####[facility] [address] [place], [address] T PROT 7.5 g/dL Normal 6.4-8.2 [facility] Comment on above: Performed By: #### L 300.3900, L500.4050, L300.4310, L100.0100 ####[facility] [address] [place], [address] Urea nitrogen [Mass/Vol] 23 mg/dL High 7-18 [facility] Comment on above: Performed By: #### L 300.3900, L500.4050, L300.4310, L100.0100 ####[facility] [address] [place], [place], [id number] Emergency Department Summary on 01-10-2024 Emergency Department Summary Normal [facility] H AND P Exam - Hospitaliston 01-10-2024 H&P Exam - Hospitalist Normal [facility] HIP, UNI W/ Pelvis 2-3 Views on 01-10-2024 HIP, UNI W/ Pelvis 2-3 Views Normal [facility] Partial Thromboplast Timeon 01-10-2024 aPTT Coag (Bld) [Time] 29.9 s Normal 24.1-36.2 [facility] Comment on above: Performed By: #### L 300.3900, L500.4050, L300.4310, L100.0100 ####[facility] [address] [place], [address] Prothrombin Time w/INRon INR Coag (PPP) [Relative time] 1.3 {INR} Normal [facility] Comment on above: Performed By: #### L 300.3900, L500.4050, L300.4310, L100.0100 ####[facility] [address] [place], [address] PT Coag (PPP) [Time] 15.9 s High 11.7-14.9 [facility] Comment on above: Performed By: #### L 300.3900, L500.4050, L300.4310, L100.0100 ####[facility] [address] [place], [place], [id number] ABSCESS AND WOUND CULTURE WI TH GRAM STAINon 08-02-2023 Bacteria identified Cx Nom (Wound) Few Pseudomonas aeruginosa Abnormal [facility] Bacteria identified Cx Nom (Wound) Few Escherichia coli Abnormal [facility] Bacteria identified Cx Nom (Wound) Few skin kj [facility] Bacteria identified Cx Nom ( Wound)on 08-02-2023 Microscopic observation Smear Nom (Unsp spec) Negative Abnormal [facility] Microscopic observation Smear Nom (Unsp spec) Positive Abnormal [facility] Microscopic observation Smear Nom (Unsp spec) No Polymorphonuclear Leukocytes Abnormal [facility] FUNGAL SCREENon 08-01-2023 Fungus identified Cx Nom (Unsp spec) Rare Damian glabrata Abnormal [facility] ABSCESS AND WOUND CULTURE WI TH GRAM STAINon 07-29-2023 Bacteria identified Cx Nom (Wound) Invalid Interpretation Code [facility] DBT Breast - right diagnosti c for implanton 07-21-2023 [facility] Absolute lymphocyte countOrd ered By: Kerwin Kumar on 06-12-2023 Lymphocytes Auto (Unsp spec) [#/Vol] 0.80 10*3/uL 0.83-4.51 [facility] Basophil percentageOrdered B y: Kerwin Kumar on 06-12-2023 Basophil percentage 0-5 SEEN /hpf 0-5 [facility] Basophils/100 WBC (Bld) 0.4 % 0-1 [facility] Chloride [Moles/Vol] 99 mmol/L 98-107 [facility] Eosinophils/100 WBC (Bld) 0.0 % 0-5 [facility] Glucose [Mass/Vol] 268 mg/dL 74-106 [facility] Comment on above: Glucose result great er than or equal to 200 mg/dLsuggests DIABETES MELLITUS per A.D.A. criteria. Neutrophils (Bld) [#/Vol] 13.7 10*3/uL 2.0-7.7 [facility] Neutrophils/100 WBC (Bld) 86.2 % 47-70 [facility] Potassium [Moles/Vol] 3.8 mmol/L 3.5-5.1 [facility] Sodium [Moles/Vol] 132 mmol/L 136-145 [facility] WBC (Bld) [#/Vol] 15.9 10*3/uL 4.4-11.0 [facility] Bilirubin Test strip Ql (U)O rdered By: Kerwin Kumar on 06-12-2023 Bilirubin Ql (U) Negative Negative [facility] Blood erythrocytes count (nu mber/volume)Ordered By: Kerwin Kumar on 06-12-2023 RBC (Bld) [#/Vol] 4.54 10*6/uL 4.2-5.4 [facility] Blood hemoglobin measurement (mass/volume)Ordered By: Kerwin Kumar on 06-12-2023 Hemoglobin (Bld) [Mass/Vol] 12.8 g/dL 12.0-15.0 [facility] Blood lymphocytes/100 leukoc ytesOrdered By: Kerwin Kumar on 06-12-2023 Lymphocytes/100 WBC (Bld) 5.0 % 19-41 [facility] Blood monocytes/100 leukocyt esOrdered By: Kerwin Kumar on 06-12-2023 Monocytes/100 WBC (Bld) 7.8 % 0-10 [facility] Blood platelet mean volumeOr dered By: Kerwin Kumar on 06-12-2023 Platelet mean volume (Bld) [Entitic vol] 10.7 fL 6.2-12.0 [facility] Determination of erythrocyte mean corpuscular volume (MCV)Ordered By: Kerwin Kumar on 06-12-2023 MCV (RBC) [Entitic vol] 90.3 fL 81-99 [facility] Hematocrit Auto (Bld) [Volum e fraction]Ordered By: Kerwin Kumar on 06-12-2023 Hematocrit (Bld) [Volume fraction] 41.0 % 37-47 [facility] Ketones Test strip Ql (U)Ord ered By: Kerwin Kumar on 06-12-2023 Ketones Ql (U) 50 mg/dl Negative [facility] Laboratory - Chemistry and C hemistry - challengeOrdered By: Kerwin Kumar on 06-12-2023 CO2 [Moles/Vol] 25.0 mmol/L 21.0-32.0 [facility] Urea nitrogen/Creatinine [Mass ratio] 17.5 mg/mg 10-20 [facility] - Hematology and Cell countsOrdered By: Kerwin Kumar on 06-12-2023 Erythrocyte distribution width (RBC) [Entitic vol] 48.2 fL 35.1-43.9 [facility] Erythrocyte distribution width (RBC) [Ratio] 14.6 % 11.6-14.6 [facility] Immature granulocytes/100 WBC (Bld) 0.600 % 0.0-0.9 [facility] Comment on above: IG% - Immature Granu locytes (promyelocytes, myelocytes and metamyelocytes) > 1% indicates that a LEFT SHIFT is Present. MCH (RBC) [Entitic mass] 28.2 pg 27.0-32.0 [facility] Nucleated RBC/100 WBC (Bld) [Ratio] 0 % 0-5 [facility] MCHC Auto (RBC) [Mass/Vol]Or dered By: Kerwin Kumar on 06-12-2023 MCHC (RBC) [Mass/Vol] 31.2 g/dL 32-36 [facility] Mucus LM Ql (Urine sed)Order ed By: Kerwin Kumar on 06-12-2023 Mucus Ql (Urine sed) 0 SEEN /hpf [facility] Nitrite Test strip Ql (U)Ord ered By: Kerwin Kumar on 06-12-2023 Nitrite Ql (U) Positive Negative [facility] No Panel InformationOrdered By: Kerwin Kumar on 06-12-2023 Estimated Creatinine Clearance Calc 65.91 ml/min [facility] Estimated GFR (MDRD) Amer 88 mL/min >60 [facility] Comment on above: GFR Calc Estimated GFR (MDRD) Non-Af Amer 73 mL/min >60 [facility] Comment on above: Non- GFR Calc Platelets bldOrdered By: Ami Kumar on 06-12-2023 Platelets (Bld) [#/Vol] 309 10*3/uL 150-450 [facility] Protein Test strip Ql (U)Ord ered By: Kerwin Kumar on 06-12-2023 Protein Ql (U) 30 mg/dl Negative [facility] Serum or plasma calcium jessi urement (mass/volume)Ordered By: Kerwin Kumar on 06-12-2023 Calcium [Mass/Vol] 9.1 mg/dL 8.5-10.1 [facility] Serum or plasma creatinine m easurement (mass/volume)Ordered By: Kerwin Kumar on 06-12-2023 Creatinine [Mass/Vol] 0.80 mg/dL 0.55-1.02 [facility] Comment on above: The validity of the calculated GFR & GFRAA in patients over 70 years has not been determined. Clinical correlation is essential. Serum or plasma urea nitroge n measurement (mass/volume)Ordered By: Kerwin Kumar on 06-12-2023 Urea nitrogen [Mass/Vol] 14 mg/dL 7-18 [facility] Squamous epithelial cells de tection in urine sediment by light microscopyOrdered By: Kerwin Kumar on 06-12-2023 Epithelial cells.squamous LM Ql (Urine sed) 0-5 SEEN /hpf 5-10 [facility] Thin prep Papanicolaou smear with manual screeningOrdered By: Kerwin Kumar on 06-12-2023 Thin prep Papanicolaou smear with manual screening 8 5-15 [facility] Urine blood detectionOrdered By: Kerwin Kumar on 06-12-2023 RBC Ql (U) 150 /ul Negative [facility] RBC Ql (U) 0-5 SEEN /hpf 0-5 [facility] Urine clarityOrdered By: Ami Kumar on 06-12-2023 Clarity (U) Clear Clear [facility] Urine color determinationOrd ered By: Kerwin Kumar on 06-12-2023 Color (U) Yellow Yellow [facility] Urine glucose detectionOrder ed By: Kerwin Kumar on 06-12-2023 Glucose Ql (U) 50 mg/dl Normal [facility] Urine leukocyte esterase det ection by dipstickOrdered By: Kerwin Kumar on 06-12-2023 Leukocyte esterase Test strip Ql (U) 100 /ul Negative [facility] Urine pHOrdered By: Kerwin espinoza on 06-12-2023 pH (U) 6.0 [pH] 5.0 - 8.0 [facility] Urine sediment bacteria coun t by microscopy (number/high power field)Ordered By: Kerwin Kumar on 06-12-2023 Bacteria LM.HPF (Urine sed) [#/Area] 2 /[HPF] None Seen [facility] Urine specific gravity measu rementOrdered By: Kerwin Kumar on 06-12-2023 Specific gravity (U) [Rel density] 1.015 1.002-1.030 [facility] Urobilinogen Auto test strip Ql (U)Ordered By: Kerwin Kumar on 06-12-2023 Urobilinogen Ql (U) Normal mg/dl Normal [facility] NM CARDIAC PERF STRESS/PHARM on 01-28-2023 [facility] HEMOGLOBIN A1C (POC)on 12-30 HbA1c (Bld) [Mass fraction] 7.0 % Abnormal 4.2 - 5.6 % [facility] XR ABDOMEN 1V SUPINEon 09-23 [facility] ECG COMPLETEon 08-18-2022 Atrial Rate 96 BPM [facility] Calculated P [place] [address] [facility] Calculated R [place] -16 degrees [facility] Calculated T [place] [address] [facility] P-R Interval 180 ms [facility] QRS Duration 78 ms [facility] QT Interval 354 ms [facility] QTC Calculation (Bazett) 447 ms [facility] Ventricular Rate 96 BPM [facility] UA DIP, URINE (POC)on 2022 BILIRUBIN UA (POCT) Negative Negative [facility] CLARITY UA (POCT) Slightly Cloudy Cl [facility] COLOR UA (POCT) Dark yellow [facility] GLUCOSE UA (POCT) Negative Negative mg/dL [facility] HEMOGLOBIN/BLOOD UA (POCT) Large Abnormal Negative [facility] KETONE UA (POCT) Negative Negative mg/dL [facility] LEUKOCYTES UA (POCT) Trace Abnormal Negative [facility] NITRITE UA (POCT) Negative Negative [facility] PH UA (POCT) 5.5 4.5 - 8.0 [facility] Protein Ql (U) 100 mg/dL Abnormal Negative mg/dL [facility] SPECIFIC GRAVITY UA (POCT) >=1.030 1.005 - 1.030 [facility] UROBILINOGEN UA (POCT) 0.2 E.U./dL Kasia l E.U./dL [facility] XR DIGIT GENERAL 3V FRONTAL/ LAT/OBL RIGHTon 05-06-2022 [facility] XR Finger - right AP and Lat eral and obliqueon 05-06-2022 IMPRESSION: Acute, comminuted fracture of the third distal phalanx subungual tuft. Personnel Psychologist: PSCB Transcribe Date/Time: May 06 2022 4:13P Dictated by : ORIN BEAL MD This examination was interpreted and the report reviewed and electronically signed by: ORIN BEAL MD on May 06 2022 4:15PM [facility] DIVISION OF RADIOLOGY * * *Final Report* * * DATE OF EXAM: May 06 2022 4:07PM WOX [id number] - XR DIGIT 3V FRONTAL/LAT/OBL RT / PROCEDURE REASON: Crushing injury of right middle finger, initial encounter * * * * Physician Interpretation * * * * TITLE: XR DIGIT 3V FRONTAL/LAT/OBL RT CLINICAL INDICATION: Crushing injury of the middle finger TECHNIQUE: 3 view radiographic study of the right third finger COMPARISON: None FINDINGS: There is an acute, comminuted fracture of the subungual tuft of the third distal phalanx. Surrounding soft tissue swelling. DIVISION OF RADIOLOGY Provider, [facility] - 05/06/2022 * * *Final Report* * * DATE OF EXAM: May 06 2022 4:07PM WOX 5319 - XR DIGIT 3V FRONTAL/LAT/OBL RT / PROCEDURE REASON: Crushing injury of right middle finger, initial encounter * * * * Physician Interpretation * * * * TITLE: XR DIGIT 3V FRONTAL/LAT/OBL RT CLINICAL INDICATION: Crushing injury of the middle finger TECHNIQUE: 3 view radiographic study of the right third finger COMPARISON: None FINDINGS: There is an acute, comminuted fracture of the subungual tuft of the third distal phalanx. Surrounding soft tissue swelling. IMPRESSION IMPRESSION: Acute, comminuted fracture of the third distal phalanx subungual tuft. Personnel Psychologist: [facility] Transcribe Date/Time: May 06 2022 4:13P Dictated by : ORIN BEAL MD This examination was interpreted and the report reviewed and electronically signed by: ORIN BEAL MD on May 06 2022 4:15PM [facility] Radiology Study observation (narrative) [facility] XR Finger - right AP and Lat eral and obliqueOrdered By: Cc Provider on 05-06-2022 [facility] CBC panel Auto (Bld)on 04-27 Erythrocyte distribution width (RBC) [Ratio] 14.6 % 11.5 - 15.0 % [facility] Hematocrit (Bld) [Volume fraction] 40.6 % 36.0 - 46.0 % [facility] Hemoglobin (Bld) [Mass/Vol] 12.8 g/dL 11.5 - 15.5 g/dL [facility] MCH (RBC) [Entitic mass] 30.0 pg 26.0 - 34.0 pg [facility] MCHC (RBC) [Mass/Vol] 31.5 g/dL 30.5 - 36.0 g/dL [facility] MCV (RBC) [Entitic vol] 95.1 fL 80.0 - 100.0 fL [facility] Nucleated RBC (Bld) [#/Vol] <0.01 k/uL [facility] Platelet mean volume (Bld) [Entitic vol] 10.7 fL 9.0 - 12.7 fL [facility] Platelets (Bld) [#/Vol] 341 10*3/uL 150 - 400 k/uL [facility] RBC (Bld) [#/Vol] 4.27 10*6/uL 3.90 - 5.2 0 m/uL [facility] WBC (Bld) [#/Vol] 9.20 10*3/uL 3.70 - 11.00 k/uL [facility] XR Abdomen Supine and Uprigh ton 04-08-2022 IMPRESSION: 0.9 x 1.8 cm oblong calculus projects over the expected location of the left renal pelvis. Personnel Psychologist: KOLE Transcribe Date/Time: Apr 08 2022 4:40P Dictated by : ORIN BEAL MD This examination was interpreted and the report reviewed and electronically signed by: ORIN BEAL MD on Apr 08 2022 4:41PM [facility] DIVISION OF RADIOLOGY * * *Final Report* * * DATE OF EXAM: Apr 08 2022 12:46PM WOX 5289 - XR ABDOMEN 1V SUPINE / PROCEDURE REASON: Renal calculus, left * * * * Physician Interpretation * * * * CLINICAL INDICATION: Left renal calculus TECHNIQUE: Supine frontal radiograph of the abdomen COMPARISON: Correlation made to CT dated July 24, 2020 FINDINGS: 0.9 x 1.8 cm oblong calculus projects over the expected location of the left renal pelvis. Surgical sutures and surgical clips in the left abdomen. Surgical clip projects over the pelvis. Surgical sutures also in the right abdomen. Nonobstructive bowel gas pattern. Degenerative changes in the spine and hips and about the pubic symphysis. DIVISION OF RADIOLOGY Provider, [facility] - 04/08/2022 * * *Final Report* * * DATE OF EXAM: Apr 08 2022 12:46PM WOX 5289 - XR ABDOMEN 1V SUPINE / PROCEDURE REASON: Renal calculus, left * * * * Physician Interpretation * * * * CLINICAL INDICATION: Left renal calculus TECHNIQUE: Supine frontal radiograph of the abdomen COMPARISON: Correlation made to CT dated July 24, 2020 FINDINGS: 0.9 x 1.8 cm oblong calculus projects over the expected location of the left renal pelvis. Surgical sutures and surgical clips in the left abdomen. Surgical clip projects over the pelvis. Surgical sutures also in the right abdomen. Nonobstructive bowel gas pattern. Degenerative changes in the spine and hips and about the pubic symphysis. IMPRESSION IMPRESSION: 0.9 x 1.8 cm oblong calculus projects over the expected location of the left renal pelvis. Personnel Psychologist: KOLE Transcribe Date/Time: Apr 08 2022 4:40P Dictated by : ORIN BEAL MD This examination was interpreted and the report reviewed and electronically signed by: ORIN BEAL MD on Apr 08 2022 4:41PM EST [facility] Radiology Study observation (narrative) [facility] XR Abdomen Supine and Uprigh tOrdered By: Ccf Provider on 04-08-2022 [facility] Bacteria identified Cx Nom ( Wound)on 03-07-2022 Microscopic observation Smear Nom (Unsp spec) Negative Abnormal [facility] Microscopic observation Smear Nom (Unsp spec) Rare Polymorphonuclear leukocytes Abnormal [facility] WOUND CULTURE AND GRAM STAIN on 03-07-2022 Bacteria identified Cx Nom (Wound) Moderate Klebsiella pneumoniae Abnormal [facility] Bacteria identified Cx Nom (Wound) Few Normal urogenital kj Abnormal [facility] EXTRA SWAB CONTAINER PERFORM ABLEon 03-04-2022 [facility] WOUND CULTURE AND GRAM STAIN on 03-04-2022 Bacteria identified Cx Nom (Wound) Invalid Interpretation Code [facility] Absolute lymphocyte counton 02-28-2022 Lymphocytes Auto (Unsp spec) [#/Vol] 1.71 10*3/uL 0.83-4.51 [facility] Work Phone: Basophil percentageon 2021 Basophils/100 WBC (Bld) 0.6 % 0-1 [facility] Work Phone: Bilirubin [Mass/Vol] 0.40 mg/dL 0.20-1.00 [facility] Work Phone: Comment on above: For patients on eltr ombopag therapy, use of Dimension [place] TBIL is not recommended. Chloride [Moles/Vol] 103 mmol/L 98-107 [facility] Work Phone: Eosinophils/100 WBC (Bld) 0.9 % 0-5 [facility] Work Phone: Glucose [Mass/Vol] 151 mg/dL 74-106 [facility] Work Phone: Comment on above: Fasting Glucose resu lt greater than or equal to 126 mg/dL suggests DIABETES MELLITUS per A.D.A. criteria. Neutrophils (Bld) [#/Vol] 9.1 10*3/uL 2.0-7.7 [facility] Work Phone: Neutrophils/100 WBC (Bld) 74.8 % 47-70 [facility] Work Phone: Potassium [Moles/Vol] 3.9 mmol/L 3.5-5.1 [facility] Work Phone: Protein [Mass/Vol] 7.7 g/dL 6.4-8.2 [facility] Work Phone: Sodium [Moles/Vol] 139 mmol/L 136-145 [facility] Work Phone: WBC (Bld) [#/Vol] 12.2 10*3/uL 4.4-11.0 [facility] Work Phone: Blood erythrocytes count (nu mber/volume)on 02-28-2022 RBC (Bld) [#/Vol] 4.82 10*6/uL 4.2-5.4 [facility] Work Phone: Blood hemoglobin measurement (mass/volume)on 02-28-2022 Hemoglobin (Bld) [Mass/Vol] 14.7 g/dL 12.0-15.0 [facility] Work Phone: Blood lymphocytes/100 leukoc yteson 02-28-2022 Lymphocytes/100 WBC (Bld) 14.1 % 19-41 [facility] Work Phone: Blood monocytes/100 leukocyt eson 02-28-2022 Monocytes/100 WBC (Bld) 9.1 % 0-10 [facility] Work Phone: Blood platelet mean volumeon 02-28-2022 Platelet mean volume (Bld) [Entitic vol] 11.0 fL 6.2-12.0 [facility] Work Phone: [phone] Determination of erythrocyte mean corpuscular volume (MCV)on 02-28-2022 MCV (RBC) [Entitic vol] 95.6 fL 81-99 [facility] Work Phone: Direct bilirubinon Bilirubin.direct [Mass/Vol] 0.09 mg/dL 0.00-0.30 [facility] Work Phone: Glucose Glucometer (BldC) [M ass/Vol]on 02-28-2022 Glucose [Mass/Vol] 146 mg/dL 74-106 [facility] Work Phone: Comment on above: MANAGEMENT OF PATIEN T CARE PER NURSING PROTOCOL Hematocrit Auto (Bld) [Volum e fraction]on 02-28-2022 Hematocrit (Bld) [Volume fraction] 46.1 % 37-47 [facility] Work Phone: Laboratory - Chemistry and C hemistry - challengeon 02-28-2022 ALP [Catalytic activity/Vol] 115 U/L 45-117 [facility] Work Phone: ALT [Catalytic activity/Vol] 15 U/L 13-56 [facility] Work Phone: [phone] CO2 [Moles/Vol] 29.0 mmol/L 21.0-32.0 [facility] Work Phone: [phone] Globulin (S) [Mass/Vol] 4.8 g/dL 2.2-4.2 [facility] Work Phone: [phone] Lipase [Catalytic activity/Vol] 74 U/L 73-393 [facility] Work Phone: [phone] Urea nitrogen/Creatinine [Mass ratio] 21.1 mg/mg 10-20 [facility] Work Phone: [phone] Laboratory - Hematology and Cell countson 02-28-2022 Erythrocyte distribution width (RBC) [Entitic vol] 49.0 fL 35.1-43.9 [facility] Work Phone: [phone] Erythrocyte distribution width (RBC) [Ratio] 13.9 % 11.6-14.6 [facility] Work Phone: [phone] Immature granulocytes/100 WBC (Bld) 0.500 % 0.0-0.9 [facility] Work Phone: [phone] Comment on above: IG% - Immature Granu locytes (promyelocytes, myelocytes and metamyelocytes) > 1% indicates that a LEFT SHIFT is Present. MCH (RBC) [Entitic mass] 30.5 pg 27.0-32.0 [facility] Work Phone: [phone] Nucleated RBC/100 WBC (Bld) [Ratio] 0 % 0-5 [facility] Work Phone: [phone] MCHC Auto (RBC) [Mass/Vol]on 02-28-2022 MCHC (RBC) [Mass/Vol] 31.9 g/dL 32-36 [facility] Work Phone: [phone] Panel Informationon 02-28 Estimated Creatinine Clearance Calc 42.00 ml/min [facility] Work Phone: [phone] Estimated GFR (MDRD) Amer 94 mL/min >60 [facility] Work Phone: [phone] Comment on above: GFR Calc Estimated GFR (MDRD) Non-Af Amer 78 mL/min >60 [facility] Work Phone: [phone] Comment on above: Non- GFR Calc Platelets bldon 02-28-2022 Platelets (Bld) [#/Vol] 311 10*3/uL 150-450 [facility] Work Phone: [phone] Serum or plasma albumin jessi urement (mass/volume)on 02-28-2022 Albumin [Mass/Vol] 2.9 g/dL 3.2-5.0 [facility] Work Phone: Serum or plasma calcium jessi urement (mass/volume)on 02-28-2022 Calcium [Mass/Vol] 9.2 mg/dL 8.5-10.1 [facility] Work Phone: Serum or plasma creatinine m easurement (mass/volume)on 02-28-2022 Creatinine [Mass/Vol] 0.76 mg/dL 0.55-1.02 [facility] Work Phone: Comment on above: The validity of the calculated GFR & GFRAA in patients over 70 years has not been determined. Clinical correlation is essential. Serum or plasma urea nitroge n measurement (mass/volume)on 02-28-2022 Urea nitrogen [Mass/Vol] 16 mg/dL 7-18 [facility] Work Phone: Thin prep Papanicolaou smear with manual screeningon 02-28-2022 Thin prep Papanicolaou smear with manual screening 9 U/L 15-37 [facility] Work Phone: Thin prep Papanicolaou smear with manual screening 7 5-15 [facility] Work Phone: Absolute lymphocyte counton 02-16-2022 Lymphocytes Auto (Unsp spec) [#/Vol] 1.81 10*3/uL 0.83-4.51 [facility] Work Phone: Basophil percentageon 2021 Basophils/100 WBC (Bld) 0.7 % 0-1 [facility] Work Phone: Chloride [Moles/Vol] 109 mmol/L 98-107 [facility] Work Phone: Eosinophils/100 WBC (Bld) 1.4 % 0-5 [facility] Work Phone: Glucose [Mass/Vol] 85 mg/dL 74-106 [facility] Work Phone: [phone] Neutrophils (Bld) [#/Vol] 6.2 10*3/uL 2.0-7.7 [facility] Work Phone: Neutrophils/100 WBC (Bld) 68.0 % 47-70 [facility] Work Phone: Potassium [Moles/Vol] 4.0 mmol/L 3.5-5.1 [facility] Work Phone: Sodium [Moles/Vol] 141 mmol/L 136-145 [facility] Work Phone: WBC (Bld) [#/Vol] 9.1 10*3/uL 4.4-11.0 [facility] Work Phone: Blood erythrocytes count (nu mber/volume)on 02-16-2022 RBC (Bld) [#/Vol] 4.18 10*6/uL 4.2-5.4 [facility] Work Phone: Blood hemoglobin measurement (mass/volume)on 02-16-2022 Hemoglobin (Bld) [Mass/Vol] 12.3 g/dL 12.0-15.0 [facility] Work Phone: Blood lymphocytes/100 leukoc yteson 02-16-2022 Lymphocytes/100 WBC (Bld) 19.8 % 19-41 [facility] Work Phone: Blood monocytes/100 leukocyt eson 02-16-2022 Monocytes/100 WBC (Bld) 9.4 % 0-10 [facility] Work Phone: Blood platelet mean volumeon 02-16-2022 Platelet mean volume (Bld) [Entitic vol] 11.0 fL 6.2-12.0 [facility] Work Phone: Determination of erythrocyte mean corpuscular volume (MCV)on 02-16-2022 MCV (RBC) [Entitic vol] 94.5 fL 81-99 [facility] Work Phone: Glucose Glucometer (BldC) [M ass/Vol]on 02-16-2022 Glucose [Mass/Vol] 64 mg/dL 74-106 [facility] Work Phone: Comment on above: MANAGEMENT OF PATIEN T CARE PER NURSING PROTOCOL Hematocrit Auto (Bld) [Volum e fraction]on 02-16-2022 Hematocrit (Bld) [Volume fraction] 39.5 % 37-47 [facility] Work Phone: [phone] Laboratory - Chemistry and C hemistry - challengeon 02-16-2022 CO2 [Moles/Vol] 26.0 mmol/L 21.0-32.0 [facility] Work Phone: [phone] Urea nitrogen/Creatinine [Mass ratio] 21.1 mg/mg 10-20 [facility] Work Phone: [phone] Laboratory - Hematology and Cell countson 02-16-2022 Erythrocyte distribution width (RBC) [Entitic vol] 48.5 fL 35.1-43.9 [facility] Work Phone: [phone] Erythrocyte distribution width (RBC) [Ratio] 14.0 % 11.6-14.6 [facility] Work Phone: [phone] Immature granulocytes/100 WBC (Bld) 0.700 % 0.0-0.9 [facility] Work Phone: [phone] Comment on above: IG% - Immature Granu locytes (promyelocytes, myelocytes and metamyelocytes) > 1% indicates that a LEFT SHIFT is Present. MCH (RBC) [Entitic mass] 29.4 pg 27.0-32.0 [facility] Work Phone: [phone] Nucleated RBC/100 WBC (Bld) [Ratio] 0 % 0-5 [facility] Work Phone: [phone] MCHC Auto (RBC) [Mass/Vol]on 02-16-2022 MCHC (RBC) [Mass/Vol] 31.1 g/dL 32-36 [facility] Work Phone: [phone] No Panel Informationon 02-16 Estimated Creatinine Clearance Calc 42.00 ml/min [facility] Work Phone: [phone] Estimated GFR (MDRD) Amer 110 mL/min >60 [facility] Work Phone: [phone] Comment on above: GFR Calc Estimated GFR (MDRD) Non-Af Amer 91 mL/min >60 [facility] Work Phone: Comment on above: Non- GFR Calc Troponin I High Sensitivity 8 pg/mL 3.0-54.0 [facility] Work Phone: Comment on above: Please Note: [place] t Units and Gender Specific Reference Ranges. For more information see Policy Stat Procedure [place] High Sensitivity Troponin (TNIH) and attachments. Platelets bldon 02-16-2022 Platelets (Bld) [#/Vol] 317 10*3/uL 150-450 [facility] Work Phone: Serum or plasma calcium jessi urement (mass/volume)on 02-16-2022 Calcium [Mass/Vol] 8.9 mg/dL 8.5-10.1 [facility] Work Phone: Serum or plasma creatinine m easurement (mass/volume)on 02-16-2022 Creatinine [Mass/Vol] 0.66 mg/dL 0.55-1.02 [facility] Work Phone: Comment on above: The validity of the calculated GFR & GFRAA in patients over 70 years has not been determined. Clinical correlation is essential. Serum or plasma urea nitroge n measurement (mass/volume)on 02-16-2022 Urea nitrogen [Mass/Vol] 14 mg/dL 7-18 [facility] Work Phone: Thin prep Papanicolaou smear with manual screeningon 02-16-2022 Thin prep Papanicolaou smear with manual screening 6 5-15 [facility] Work Phone: GLUCOSE, BLOOD (POC)on 12-17 Glucose [Mass/Vol] 248 mg/dL Abnormal 74 - 99 mg/dL [facility] UA DIP, URINE (POC)on 2021 BILIRUBIN UA (POCT) Negative Negative [facility] CLARITY UA (POCT) Cloudy [facility] COLOR UA (POCT) [facility] GLUCOSE UA (POCT) >=1000 Abnormal Negative mg/dL [facility] HEMOGLOBIN/BLOOD UA (POCT) Large Abnormal Negative [facility] KETONE UA (POCT) Trace Negative mg/dL [facility] LEUKOCYTES UA (POCT) Small Abnormal Negative [facility] ([facility]) Positive Abnormal Negative [facility] PH UA (POCT) 5.0 4.5 - 8.0 [facility] Protein Ql (U) 100 mg/dL Abnormal Negative mg/dL [facility] SPECIFIC GRAVITY UA (POCT) 1.025 1.005 - 1.030 [facility] UROBILINOGEN UA (POCT) 0.2 E.U./dL Kasia l E.U./dL [facility] TSH BLDon 10-04-2021 TSH Qn 1.840 m[IU]/L 0.270 - 4.200 mIU/L [facility] XR Chest PA and Lateralon IMPRESSION: No acute radiographic abnormality. Personnel Psychologist: KOLE Transcribe Date/Time: Oct 04 2021 7:28A Dictated by : MALIKA JACOBSON MD This examination was interpreted and the report reviewed and electronically signed by: MALIKA JACOBSON MD on Oct 04 2021 7:28AM EST [id number][facility][id number] _DIVISION OF RADIOLOGY * * *Final Report* * * DATE OF EXAM: Oct 03 2021 4:26PM WOX 5291 - XR CHEST 2V FRONTAL/LAT / PROCEDURE REASON: Shortness of breath on exertion * * * * Physician Interpretation * * * * EXAMINATION: CHEST RADIOGRAPH (2 VIEW FRONTAL & LATERAL) CLINICAL HISTORY: Shortness of breath on exertion MQ: XC2_6 EXAM DATE/TIME: 10/03/2021 4:26 PM COMPARISON: No relevant prior studies available. RESULT: Lines, tubes, and devices: None. Lungs and pleura: No consolidation. No lung mass. No pleural effusion. No pneumothorax. Cardiomediastinal silhouette: The heart is enlarged. Aorta is tortuous with atherosclerotic changes. Bones and soft tissues: Degenerative changes of the thoracic spine. [id number] _DIVISION OF RADIOLOGY Provider, [facility] - 10/04/2021 * * *Final Report* * * DATE OF EXAM: Oct 03 2021 4:26PM WOX 5291 - XR CHEST 2V FRONTAL/LAT / PROCEDURE REASON: Shortness of breath on exertion * * * * Physician Interpretation * * * * EXAMINATION: CHEST RADIOGRAPH (2 VIEW FRONTAL & LATERAL) CLINICAL HISTORY: Shortness of breath on exertion MQ: XC2_6 EXAM DATE/TIME: 10/03/2021 4:26 PM COMPARISON: No relevant prior studies available. RESULT: Lines, tubes, and devices: None. Lungs and pleura: No consolidation. No lung mass. No pleural effusion. No pneumothorax. Cardiomediastinal silhouette: The heart is enlarged. Aorta is tortuous with atherosclerotic changes. Bones and soft tissues: Degenerative changes of the thoracic spine. IMPRESSION IMPRESSION: No acute radiographic abnormality. Personnel Psychologist: P[facility]B Transcribe Date/Time: Oct 04 2021 7:28A Dictated by : MALIKA JACOBSON MD This examination was interpreted and the report reviewed and electronically signed by: MALIKA JACOBSON MD on Oct 04 2021 7:28AM EST [facility] XR Chest PA and LateralOrder ed By: Ccf Provider on 10-04-2021 [facility] CBC W Auto Differential pane l (Bld)on 10-03-2021 Abs Immature Gran 0.05 k/uL <0.10 k/uL [facility] Basophils (Bld) [#/Vol] 0.07 10*3/uL <0.11 k/uL [facility] Basophils/100 WBC (Bld) 0.7 % [facility] Differential cell count method Nom (Bld) Auto [facility] Eosinophils (Bld) [#/Vol] 0.12 10*3/uL <0.46 k/uL [facility] Eosinophils/100 WBC (Bld) 1.2 % [facility] Erythrocyte distribution width (RBC) [Ratio] 14.2 % 11.5 - 15.0 % [facility] Hematocrit (Bld) [Volume fraction] 43.9 % 36.0 - 46.0 % [facility] Hemoglobin (Bld) [Mass/Vol] 14.2 g/dL 11.5 - 15.5 g/dL [facility] Immature Gran % 0.5 % [facility] Lymphocytes (Bld) [#/Vol] 2.06 10*3/uL 1.00 - 4.00 k/uL [facility] Lymphocytes/100 WBC (Bld) 20.9 % [facility] MCH (RBC) [Entitic mass] 30.5 pg 26.0 - 34.0 pg [facility] MCHC (RBC) [Mass/Vol] 32.3 g/dL 30.5 - 36.0 g/dL [facility] MCV (RBC) [Entitic vol] 94.2 fL 80.0 - 100.0 fL [facility] Monocytes (Bld) [#/Vol] 0.81 10*3/uL <0.87 k/uL [facility] Monocytes/100 WBC (Bld) 8.2 % [facility] Neutrophils (Bld) [#/Vol] 6.76 10*3/uL 1.45 - 7.50 k/uL [facility] Neutrophils/100 WBC (Bld) 68.5 % [facility] Nucleated RBC (Bld) [#/Vol] 10*3/uL <0.01 k/uL [facility] Nucleated RBC/100 WBC (Bld) [Ratio] 0.0 /100 WBC [facility] Platelet mean volume (Bld) [Entitic vol] 11.1 fL 9.0 - 12.7 fL [facility] Platelets (Bld) [#/Vol] 293 10*3/uL 150 - 400 k/uL [facility] RBC (Bld) [#/Vol] 4.66 10*6/uL 3.90 - 5.2 0 m/uL [facility] WBC (Bld) [#/Vol] 9.87 10*3/uL 3.70 - 11.00 k/uL [facility] Comprehensive metabolic 2000 panelon 10-03-2021 Albumin [Mass/Vol] 3.9 g/dL 3.9 - 4.9 g/dL [facility] ALP [Catalytic activity/Vol] 100 U/L 34 - 123 U/L [facility] ALT [Catalytic activity/Vol] 9 U/L 7 - 38 U/L [facility] Anion gap [Moles/Vol] 10 mmol/L 9 - 18 mmol/L [facility] AST [Catalytic activity/Vol] 14 U/L 13 - 35 U/L [facility] Bilirubin [Mass/Vol] 0.2 mg/dL 0.2 - 1 .3 mg/dL [facility] Calcium [Mass/Vol] 9.1 mg/dL 8.5 - 10. 2 mg/dL [facility] Chloride [Moles/Vol] 104 mmol/L 97 - 10 5 mmol/L [facility] CO2 [Moles/Vol] 23 mmol/L 22 - 30 mmol/L [facility] Creatinine [Mass/Vol] 0.70 mg/dL 0.58 - 0.96 mg/dL [facility] Estimated Glomerular Filtration Rate 88 mL/min/1.73m >=60 mL/min/1.73 m [facility] Glucose [Mass/Vol] 128 mg/dL High 74 - 99 mg/dL [facility] Potassium [Moles/Vol] 4.3 mmol/L 3.7 - 5.1 mmol/L [facility] Protein [Mass/Vol] 7.2 g/dL 6.3 - 8.0 g/dL [facility] Sodium [Moles/Vol] 137 mmol/L 136 - 144 mmol/L [facility] Urea nitrogen [Mass/Vol] 21 mg/dL 7 - 21 mg/dL [facility] XR CHEST 2V FRONTAL/LATon [facility] XR Chest PA and Lateralon Radiology Study observation (narrative) Daniela oliver [facility] ANES [place] 06-12-2019 ANES POST HNO ID: [id number] Author: Mayra Moore Service: Anesthesiology Author Type: Anesthesiologist Type: Anesthesia PostOp Filed: 06/12/2019 8:36 AM Note Text: POST ANESTHESIA EVALUATION NOTE SERVICE DATE: 06/12/2019 SERVICE TIME: 832 : 1942 Vitals: 06/12/19 0654 06/12/19 0809 Temp: 36.6 ?C (97.9 ?F) 36.7 ?C (98.1 ?F) 06/12/19 0654 06/12/19 0809 06/12/19 0815 BP: 145/74 131/72 144/76 06/12/19 0654 06/12/19 0809 06/12/19 0815 Pulse: 70 74 63 06/12/19 0654 06/12/19 0809 06/12/19 0815 Resp: 16 16 16 06/12/19 0654 06/12/19 0809 06/12/19 0815 SpO2: 98% 97% 98% Validated Vital Signs: Yes POST ANES STATUS: No apparent anesthetic complications. The patient is appropriately hydrated with stable respiratory and cardiovascular status. Patient has safe and adequate airway control. The patient has appropriate pain relief and no significant post operative nausea or vomiting. The patient has achieved baseline mental status. Intra-Operative Events: No Significant Anesthesia Events Further assessment by Anesthesia Service: None Other Remarks: SIGNATURE: Mayra Moore MD PATIENT NAME: Miriam Davenport DATE: June 12, 2019 TIME: 8:36 AM PAGER/CONTACT #: [facility] ANES PREOPon 06-12-2019 ANES PREOP HNO ID: [id number] Author: Mayra Moore Service: Anesthesiology Author Type: Anesthesiologist Type: Anesthesia PreOp Filed: 06/12/2019 7:09 AM Note Text: REGIONAL ANESTHESIOLOGY PREOPERATIVE ASSESSMENT Surgeon(s): Esther Prado Procedure(s) (LRB): EXAM UNDER ANESTHESIA PELVIC / VAGINAL (N/A) BIOPSY VULVA (N/A) Vitals: 06/12/19 0654 BP: 145/74 Pulse: 70 Resp: 16 Temp: 36.6 ?C (97.9 ?F) SpO2: 98% ACTIVE PROBLEM LIST Diabetes Mellitus Type 2, Uncontrolled, Without Complications Hyperlipidemia Chronic Rhinitis 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 Unspecified Glaucoma(365.9) Obesity Calculus of Gallbladder Without Mention of Cholecystitis [...] Bursae and Tendons in Shoulder Region, Unspecified Other Physical Therapy Sprain of Lumbar Region Vitamin D Deficiency Pain in Joint, Shoulder Region Lumbar Strain, Subsequent Encounter Lumbar Spondylosis Lumbar Degenerative Disc Disease Lumbosacral Facet Joint Syndrome History of Gastric Bypass Murmur, Cardiac Atypical Chest Pain Dm (Diabetes Mellitus), Type 2 With Neurological Complications (Hcc) Retrosternal Chest Pain Neck Pain History of Jordin-En-Y Gastric Bypass Aortic Sclerosis Carotid Artery Stenosis Without Cerebral Infarction, Bilateral Spondylolisthesis of Lumbar Region Si Joint Arthritis Chronic Si Joint Pain Open Compression Fracture of First Lumbar Vertebra (Hcc) Spinal Stenosis of Lumbar Region Incisional Hernia, Without Obstruction Or Gangrene Uncomplicated Epigastric Hernia Multiple Subsegmental Pulmonary Emboli Without Acute Cor Pulmonale (Hcc) PAST MEDICAL HISTORY Diagnosis Date - Abdominal wall abscess 03/04/09 - 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 elsewhere classified - Benign neoplasm of colon TA CECUM - Calculus of gallbladder without mention of cholecystitis or obstruction 04/09/2005 No evidence obstruction on HIDA scan 03/04 - 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 - Contact dermatitis and other eczema, due to unspecified cause - Lichen 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 per PUBLIC [facility]DRESS SERVIC[facility] outside facility Apr 1997 - MORBID OBESITY 08/18/2007 - Obstructive sleep apnea Sleep study 2002 - Occlusion and stenosis of carotid artery without mention of cerebral infarction 03/09/06 mild stenosis shown on u/s at [facility] u/s repeated 02/02/07 with no change - Pure hypercholesterolemia - Type II or unspecified type diabetes mellitus with renal manifestations, uncontrolled(250.42) - Unspecified glaucoma(365.9) - Unspecified pruritic disorder PAST SURGICAL HISTORY Procedure Laterality Date - EGD W/O [facility] SPECIMEN W/BX 05-14- - GASTRIC BYPASS 09/14/2007 - I AND D ABSCESS, SINGLE 2009 ABD WALL and intestine removed - LAP COLECTMY W/ILEUM/ILEOCOL 02/20/09 polyps - LIGATE FALLOPIAN TUBE Tubal ligation - NASAL SCOPY,REMV TISS SPHENOID - PAST SURGICAL HISTORY OF 02/2008 Left total knee - PAST SURGICAL HISTORY OF 04/2008 Right total knee FAMILY HISTORY Problem Relation Age of Onset - Breast Cancer Mother cva - Stroke Mother - Heart Father AAA - Colon Cancer Father - other (leukemia) Brother Social History: Social History Tobacco Use - Smoking status: Never Smoker - Smokeless tobacco: Never Used Substance Use Topics - Alcohol use: No - Drug use: No No current facility-administered medications on file prior to encounter. Current Outpatient Medications on File Prior to Encounter Medication Sig - oxybutynin ER (DITROPAN XL) 10 mg 24 hr tablet Take 1 tablet by mouth once daily as needed. OVERACTIVE BLADDER - metFORMIN ER (GLUCOPHAGE XR) 500 mg 24 hr tablet Take 4 tablets by mouth daily with breakfast. - Blood-Glucose Meter, Drum-type (ACCU-CHEK COMPACT PLUS CARE) kit USE DIRECTED. - calcitriol (ROCALTROL) 0.5 mcg capsule take 1 capsule by mouth once daily - Blood Sugar Diagnostic, Drum (ACCU-CHEK COMPACT TEST) strp Test blood sugar(s) 2 times daily. Dx: Type 2 DM - Uncontrolled E11.65 Insulin: No - cetirizine (ZYRTEC) 10 mg tablet Take 1 tablet by mouth once daily. - acetaminophen (TYLENOL EXTRA STRENGTH) 500 mg tablet Take 500 mg by mouth daily at bedtime. - COMPOUNDED PRESCRIPTION ONE TOUCH ULTRA 2 TEST STRIPS TESTING 2 TIMES DAILY INSULIN NO DX E11.65 - CALCIUM CITRATE/VITAMIN D3 (CALCIUM CITRATE + D ORAL) Take 1 capsule by mouth three times daily. - BIOTIN 2,500 MCG TAB Take 2,500 mcg by mouth once daily. - ascorbic acid(VITAMIN C 500 MG TAB) Take 500 mg by mouth once daily. - pnv/iron,carb/om-3/fa/f at 1(PRE- MULTIVITAMINS WITH MINERALS 27 MG-1 MG-300 MG CAP) Take 1 capsule by mouth once daily. - clobetasol (TEMOVATE) 0.05 % cream Apply thin layer to affected area every night before bed for 6-12 weeks - rivaroxaban (XARELTO) 20 mg tablet Take 1 tablet by mouth daily with dinner. - HYDROcodone-Acetaminoph en (NORCO) 7.5-325 mg per tablet Take 1 tablet by mouth every 6 hours as needed for Pain for up to 7 days. - sertraline (ZOLOFT) 25 mg tablet Take 1 tablet by mouth once daily. (Patient taking differently: Take 25 mg by mouth as needed. ) - gabapentin (NEURONTIN) 300 mg capsule daily at bed - cyanocobalamin 1,000 mcg/mL soln Inject 1 mL intramuscularly once every month. Current Facility-Administered Medications Medication Dose Route Frequency Provider Last Rate Last Dose - lidocaine 10 mg/mL (1 %) 1-2 mg injection (XYLOCAINE) 0.1-0.2 mL INTRADERMAL PRN Chaparrita Waite MD (Fel) - lactated ringers infusion 5-30 mL/hr INTRAVENOUS CONTINUOUS Chaparrita Waite MD (Fel) - acetaminophen 1,000 mg tab(s) (TYLENOL) 1,000 mg ORAL Pre-Op Once [facility] - promethazine 12.5 mg tab(s) (PHENERGAN) 12.5 mg ORAL Pre-Op Once [facility] - lactated ringers infusion 30 mL/hr INTRAVENOUS CONTINUOUS [facility] Allergies: ALLERGIES Allergen Reactions - Asa [Salicylates] Anaphylaxis - Avapro [Irbesartan] Swelling - Byetta [Exenatide] Can not remember what effect but not suppose to take it - Crestor [Rosuvastat* - Duoderm [Other] Rash - Eggs [Egg] Diarrhea Not true allergy - Erythromycin Myalgia - Etodolac Contraindication-Medica l Surgical Was told never to take NSAID due to bypass surgery. She also developed severe pain after taking Etodolac that was excruciating - Lipitor [Atorvastat* - Niacin Unknown - Niaspan [Niacin (An* - Nsaids (Non-Steroid* Was told to avoid all NSAID's due to bypass surgery - Ointments [Other] Can use lotions/creams, but ointments cause itchy/burning and painful rash. - Penicillins Rash - Pravachol [Pravasta* - Sulfa (Sulfonamide * Rash - Tape [Other] - Zetia [Ezetimibe] - Zocor [Simvastatin] - Metformin GI Upset diarrhea REVIEW OF SYSTEMS: As stated in Active Problem List/ Past Medical History Hemoglobin 13.5 03/24/2019 Hematocrit 41.3 03/24/2019 Sodium 139 03/17/2019 Glucose 161 03/17/2019 Potassium 4.9 03/17/2019 Platelet Count 263 03/24/2019 PT Sec 10.3 03/17/2019 APTT 24.2 03/17/2019 PT INR 1.0 03/17/2019 Creatinine 0.67 03/17/2019 EKG RESULTS: normal sinus rhythm and PACs noted ANESTHESIOLOGY REVIEW: Airway Assessment: MP 1; Neck ROM: Full ROM without neurologic symptoms; Airway Evaluation: Thick neck Symptoms of Sleep Apnea: yes Intubation History: No previous history of difficult intubation Dentition: Teeth intact ADVERSE ANESTHESIA EVENT: No history of adverse event FAMILY HIISTORY OF ANESTHESIA: No known issues Blood Products: Not anticipated for this procedure Other Medical Problems: None Additional Physical Exam: Lungs: Lungs clear to auscultation. Good diaphragmatic excursion. Cardiac: normal S1 and S2; no rubs, no murmurs, and no gallops Additional pertinent findings: N/A I have interviewed and examined the patient. I have reviewed the medical record and/or the pre-anesthesia evaluation, pertinent labs, and test results. Significant changes in the patient's condition since the History and Physical, not otherwise documented in primary service progress notes: No Anesthetic risks, benefits, alternatives, personnel and consent discussed. Yes ASA 3 NPO >8 hours PLAN: GA This contains updated information obtained within 48 hours of Surgery/Procedure. SIGNATURE: Mayra Moore MD PATIENT NAME: Miriam Davenport DATE: June 12, 2019 TIME: 7:07 AM PAGER/CONTACT #: [facility] NURSING PROGon 06-12-2019 NURSING PROG HNO ID: [id number] Author: Natalya (Rn) ISMAEL Cox Service: Nursing Author Type: Registered Nurse Type: Nursing Progress Note Filed: 06/13/2019 2:57 PM Note Text: Nursing Progress Note Topic of Note: Post op phone call Miriam Davenport [phone] Pt has concern about stitches poking her and location of the areas where biopsies were taken. Encouraged pt to reach out to Dr. Prado for clarification. Phone number provided. This note was completed by: Natalya Cox RN [facility] SURGICAL PATHOLOGYon 020 SURGICAL PATHOLOGY ADDENDUM PRESENT Specimen originated from [facility] Specimen #: [id number] Submitting Physician: ESTHER PRADO FINAL DIAGNOSIS 1. Right labia majus, biopsy (A) - Benign squamous mucosa with scant stroma with nonspecific features. 2. Perineal body, biopsy (B) - Benign skin. 3. Left labia majus, biopsy (C) - Benign squamous mucosa. 4. Right vulvar lesion biopsy (D) - Benign squamous mucosa. AES/db 06/13/2019 Ashlyn Foster M.D. (Electronic Signature) SPECIMEN SUBMITTED A: RIGHT LABIA MAJUS, BIOPSY B: PERINEAL BODY, BIOPSY C: LEFT LABIA MAJUS, BIOPSY D: RIGHT VULVAR LESION INTORTUS, BIOPSY ADDENDUM Date Ordered: 06/27/2019 Date Reported: 06/27/2019 A. To evaluate for a fungal and/or bacterial infection, PAS/F and Gram stains were performed at the [facility] and compared to appropriate controls. The PAS/F stain highlights fungal hyphae within the stratum corneum. The Gram stain fails to highlight bacterial colonies. Overall, the above histologic findings and special stain results are those of a fungal infections process. Clinical correlation is recommended. ERIKA/SAMUEL/salinas 06/27/2019 Addendum Pathologist: Radha Walters M.D. Electronic Signature CLINICAL DATA LICHEN SCLEROSUS ET ATROPHICUS; VULVAR LESION; LICHEN SCLEROSUS; EXAM UNDER ANESTHESIA GROSS DESCRIPTION A. Received in formalin is a cylindrical segment of skin and subcutaneous tissue measuring 0.4 x 0.3 x 0.3 cm. The specimen is not sectioned. Totally submitted in formalin in one cassette. B. Received in formalin on Telfa gauze is a cylindrical segment of skin and subcutaneous tissue measuring 0.4 x 0.3 x 0.3 cm. The specimen is not sectioned. Totally submitted in formalin in one cassette. C. Received in formalin on Telfa gauze is a cylindrical segment of skin and subcutaneous tissue measuring 0.4 x 0.3 x 0.3 cm. On the surface there is a 0.2 cm enamorado-brown flat area. The specimen is not sectioned. Totally submitted in formalin in one cassette. D. Received in formalin on Telfa gauze is a cylindrical segment of skin and subcutaneous tissue measuring 0.5 x 0.3 x 0.2 cm. The specimen is not sectioned. Totally submitted in formalin in one cassette. Gross examination performed at [facility], [address] [place] [address] 06/12/2019 9:33:07 PM Date of Report: 06/13/2019 Date of Procedure: 06/12/2019 Date of Receipt: 06/12/2019 Submitted by: ESTHER PRADO Additional Physician(s): GUILLAUME DOMINGUEZ Location: [facility] Diagnostic interpretation performed at [facility], [address] [place] [address]. [place] Number: [id number] [facility] NURSING PROGon 06-01-2019 NURSING PROG HNO ID: [id number] Author: Karin (Rn) ISMAEL Herron Service: General Surgery Author Type: Registered Nurse Type: Nursing Progress Note Filed: 06/01/2019 8:16 PM Note Text: PACC Nurse Progress Note History AND Physical: PACC Visit Date: 05-19-19 Original HANDP Date: N/A ED visit Date: N/A Outside HANDP Scanned Date: N/A Labs Within Last 6 Months: CBC: Date 03-31-19 BMP/CMP: Date 03-31-19 Results scanned in [facility] 05-01-19 Imaging Within Last 12 Months: N/A Cardiac Testing: EKG in last 12 Months: Yes: Date: 03-17-19, Comment: Confirmed in [facility] Last Menstrual Period: LMP Date: Not recorded Postmenopausal >1yr: Yes, S/P Hysterectomy: No BMI Percentile (PEDS): N/A Risk Assessment: N/A Anesthesia Review: N/A Narrative: N/A Pre-op Considerations: Per HANDP: DM (diabetes mellitus), type 2 with neurological complications (HCC) Assessment: on oral agent and rx for neuropathy, last A1c 7.6 12/2018, following [facility] endo Multiple subsegmental pulmonary emboli without acute cor pulmonale Assessment: Provoked PE, patient had herniorrhaphy on 03/24. Diagnosed on 03/[address] in ER. On Xarelto she is on lifelong anticoagulation, no need to hold AC prior to EUA and biopsies -per Dr. Esther Prado ? Hyperlipidemia Assessment: statin intolerant ? Atypical chest pain Assessment: h/o was using Nitro as needed, states has not needed in very long time Long history of atypical chest pain with risk factors of age, diabetes and dyslipidemia. She also has a systolic aortic murmur and underwent stress echocardiographic. No provokable angina, E. electrocardiographic changes nor wall motion abnormalities. Aortic valve is mildly calcified but no stenosis. Unfortunately she is intolerant to statin medications and do to her previous gastric bypass was told not to take aspirin or possibly there was an angioedema reaction. ? Aortic sclerosis (HCC) Assessment: +h/o aortic sclerosis without stenosis. ? PERNICIOUS ANEMIA Assessment: receiving B12 injections, h/o gastric bypass 2007 ? Spinal stenosis of lumbar region Assessment: following pain management at [facility], receiving facet injections ? Osteopenia Assessment: on supplement ? Obesity Assessment: Body mass index is 37.12 kg/m?. ? History of Jordin-en-Y gastric bypass Assessment: h/o 2007, on supplements ? Anxiety state Assessment: stable on rx per pt, pt with recent pain she has had a lot of increase in anxiety and with pending upcoming bx ? ? Chart Check: COMPLETED Karin Herron RN June 01, 2019 8:14 PM Normal [facility] HOSPon 05-04-2019 HOSP Patient:Layla Davenport MRN: Height:5' 6(1.676 m) Weight:230 lb (104.327 kg) Outpatient Medications as of 06/12/19: lidocaine (XYLOCAINE) 2 % jelly clobetasol (TEMOVATE) 0.05 % cream rivaroxaban (XARELTO) 20 mg tablet HYDROcodone-Acetaminoph en (NORCO) 7.5-325 mg per tablet sertraline (ZOLOFT) 25 mg tablet oxybutynin ER (DITROPAN XL) 10 mg 24 hr tablet metFORMIN ER (GLUCOPHAGE XR) 500 mg 24 hr tablet Blood-Glucose Meter, Drum-type (ACCU-CHEK COMPACT PLUS CARE) kit calcitriol (ROCALTROL) 0.5 mcg capsule Blood Sugar Diagnostic, Drum (ACCU-CHEK COMPACT TEST) strp gabapentin (NEURONTIN) 300 mg capsule cetirizine (ZYRTEC) 10 mg tablet acetaminophen (TYLENOL EXTRA STRENGTH) 500 mg tablet cyanocobalamin 1,000 mcg/mL soln COMPOUNDED PRESCRIPTION CALCIUM CITRATE/VITAMIN D3 (CALCIUM CITRATE + D ORAL) BIOTIN 2,500 MCG TAB ascorbic acid(VITAMIN C 500 MG TAB) pnv/iron,carb/om-3/fa/f at 1(PRE-JIMY MULTIVITAMINS WITH MINERALS 27 MG-1 MG-300 MG CAP) Admission/Clinic Administered Medications as of 06/12/19: lidocaine 10 mg/mL (1 %) 1-2 mg injection (XYLOCAINE) lactated ringers infusion lactated ringers infusion Problem List: Diabetes mellitus type 2, uncontrolled, without complications [[id number]] Hyperlipidemia [E78.5] Chronic rhinitis [J31.0] 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 elsewhere classified [T78.3XXA] Unspecified glaucoma(365.9) [H40.9] Obesity [E66.9] Calculus of gallbladder without mention of cholecystitis or obstruction [K80.20] Occlusion and stenosis of carotid artery without mention of cerebral infarction [I65.29] Psychic factors associated with diseases classified elsewhere [F54] Eating disorder, unspecified [F50.9] Pernicious anemia [D51.0] Anxiety state [F41.1] 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] Unspecified pruritic disorder [L29.9] Contact dermatitis and other eczema, due to unspecified cause [L25.9] Osteopenia [M89.9, M94.9] Other and unspecified postsurgical nonabsorption [K91.2] Intervertebral cervical disc disorder with myelopathy, 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] Intervertebral lumbar disc disorder with myelopathy, lumbar region [M51.06] Lichen sclerosus [L90.0] Disorders of bursae and tendons in shoulder region, unspecified [M71.9, M67.919] Other physical therapy [MAF5306] Sprain of lumbar region [S33.5XXA] Vitamin D deficiency [E55.9] Pain in joint, shoulder region [M25.519] Lumbar strain, subsequent encounter [S39.012D] Lumbar spondylosis [M47.816] Lumbar degenerative disc disease [M51.36] Lumbosacral facet joint syndrome [M47.817] History of gastric bypass [Z98.84] Murmur, cardiac [R01.1] Atypical chest pain [R07.89] DM (diabetes mellitus), type 2 with neurological complications (HCC) [E11.49] Retrosternal chest pain [R07.2] Neck pain [M54.2] History of Jordin-en-Y gastric bypass [Z98.84] Aortic sclerosis [GSU1112] Carotid artery stenosis without cerebral infarction, bilateral [I65.23] Spondylolisthesis of lumbar region [M43.16] SI joint arthritis [M47.818] Chronic SI joint pain [M53.3, G89.29] Open compression fracture of first lumbar vertebra (HCC) [S32.010B] Spinal stenosis of lumbar region [M48.061] Incisional hernia, without obstruction or gangrene [K43.2] Uncomplicated epigastric hernia [K43.9] Multiple subsegmental pulmonary emboli without acute cor pulmonale (HCC) [I26.94] Allergies: Asa [Salicylates] Avapro [Irbesartan] Byetta [Exenatide] Crestor [Rosuvastatin Calcium] duoderm [Other] Eggs [Egg] Erythromycin Etodolac Lipitor [Atorvastatin] Niacin Niaspan [Niacin (Antihyperlipidemic)] Nsaids (Non-Steroidal Anti-Inflammatory Drug) ointments [Other] Penicillins Pravachol [Pravastatin Sodium] Sulfa (Sulfonamide Antibiotics) tape [Other] Zetia [Ezetimibe] Zocor [Simvastatin] Metformin Date Verified: 06/12/19 Lab Values No results within the last 30 days for the following basenames: K,HCT Progress Notes ([facility]): Lola Wong LPN 06/05/2019 10:43 AM Signed Patient requesting referrals for several specialists: 1) Dr. Cartagena-Bariatric/[facility] [place] 2) Dr. Luong - Lease Attendant (non [facility]) 3) Dr. Reina - Gyro Mechanic (non [facility]) 4) Dr Prado - Gynecology/[place] Comfort Patterson APRN.CNS 06/06/2019 8:07 AM Signed Can you clarify why she is seeing homogenizer operator and chain hooker - diagnoses for referrals? Lola Wong LPN 06/06/2019 8:[address] [place], did patient indicate to you why she is seeing these specialists? Guillaume Dominguez MD 06/07/2019 7:26 PM Signed Filed order Do not use Non[facility] consult orders (there is a place with consult orders to check if they are a [facility] provider/have Epic privileges. Progress Notes ([facility]): Ning Nino ROLLER EMBOSSER 06/05/2019 3:51 PM Signed DATE OF SERVICE: 06/05/2019 PROBLEM: Miriam Davenport presents for pre-op teaching. ( phone ) PRE-OP DIAGNOSIS: Lichen sclerosus SCHEDULED SURGERY AND DATE: 06/12/2019 EXAM UNDER ANESTHESIA PELVIC / VAGINAL BIOPSY VULVA PRIMARY SURGEON: Esther Prado MD NURSING PREOP ASSESSMENT: Fevers, chills, cough, or nasal congestion: No Vaginal itching, burning, discharge, or odor: No Pain with urination, frequency, urgency, cloudy or foul smelling urine: No If yes to any of the above then MD notified: Not Applicable ADVANCED CARE PLANNING: Does the patient have an advanced directive: No Does [facility] have a copy of the patient's advanced directive: No Was advanced directive given to the patient: No PATIENT LEARNING ASSESSMENT: Individual patient/family learning needs evaluated and addressed: Yes Cognitive ability: Alert and oriented Motivation to learn: Eager Factors affecting learning: None Physical limitations affecting learning: None Patient learns best by: Verbal Instruction Method of instruction: Verbal instruction Instructions provided to: Patient via telephone. Written material provided prior to education appointment. Family support: None - Unavailable/disinterest ed PRE- AND POST-OPERATIVE TEACHING Pre-operative teaching and supplemental material provided and reviewed with patient: Your Surgical Guide Book Map Written pre-op and post-op instructions Antibacterial soap: instructed to use antibacterial soap the night before and morning of surgery Pre-operative instructions provided and reviewed with patient/family: No eating, drinking, or smoking after midnight prior to surgery unless otherwise directed No alcohol the day before surgery Medications as prescribed by anesthesia, internal medicine, surgeon, or ROLL CARRIER Stop NSAIDs, Aspirin (ASA), vitamins, herbal supplements, herbal teas, and diet pills 7-10 days prior to surgery OK to take tylenol prn pain unless otherwise directed by physician Call surgery coordinators if any other questions about surgery date or pre-op appointments Bowel prep instructions: NPO after midnight Day of surgery instructions provided and reviewed with patient/family: Arrival time (call surgical coordinators on the office day prior to surgery for verification) No jewelry, body piercing, makeup, contacts, lotions, nail portuguese on fingers, or anything in hair on arrival to surgery Wear low healed shoes and loose fitting clothing Leave all valuables at home or with a family member Parking/parking validation on the day prior to surgery Holding area Placement of IV Surgical positioning Family waiting area Surgical recovery room Post-operative instructions provided and reviewed with patient/family: SEE PATIENT INSTRUCTION SECTION FOR DETAILS. SYMPTOMS TO NOTIFY MD - Fever, chills, nausea, vomiting, increased or severe pain, heavy vaginal bleeding, foul smelling vaginal drainage, pain or swelling in extremities. URGENT SYMPTOMS - Call 911 or go to ER if any shortness of breath, difficulty breathing, or chest pain. HOW TO CONTACT PHYSICIAN - Physician's office phone number given to patient, if after hours patient instructed to call sander operator and ask for concrete pipe making machine operator motion picture film examiner onc resident. [place] program offered to patient: No, Additional teaching as indicated by patient/family learning needs. PATIENT LEARNING EVALUATION AND FOLLOW UP PLAN: Patient and/or family express understanding of upcoming surgery, pre-operative preparation, the operative process, and post-operative instructions. Follow up plan: Complete - No need for follow-up Patient has a post-op appointment scheduled: Yes Referral (recommentation): None Educator: Ning Nino LPN [facility] [place] [facility] MRI LUMBAR SPINE WO IVCONon 10-03-2018 MRI LUMBAR SPINE WO IVCON * * *Final Report* * * DATE OF EXAM: Oct 03 2018 9:18AM [facility] 0303 - MRI LUMBAR SPINE WO IVCON / PROCEDURE REASON: multiple diagnoses * * * * Physician Interpretation * * * * RESULT: EXAMINATION: MRI LUMBAR SPINE WO IVCON CLINICAL HISTORY: Other fracture of unspecified lumbar vertebra, initial encounter for closed fracture (HCC) Spinal stenosis of lumbar region, unspecified whether neurogenic claudication present TECHNIQUE: Routine lumbosacral spine MR protocol without gadolinium. MQ: [id number] COMPARISON: 10/06/2013 RESULT: Counting reference: Lumbosacral junction. For the purposes of this report, L4-5 is considered the level of the iliac crest and assume there are 5 lumbar-type vertebrae. Anatomic variant: None. Alignment: Grade 2 anterolisthesis of L5-S1. Bone marrow signal/fracture: No evidence of pathologic marrow infiltration. Chronic bilateral L5 pars defects. Late subacute to chronic moderate anterior wedge compression deformity of the L1 vertebral body which is newly apparent since 10/06/[address] abdomen and pelvis dated 06/24/2018; minimal associated edema like signal. Mild subacute inferior endplate compression deformity of T12, also new from 10/06/2013 but unchanged from 06/24/2018; mild associated edema like signal. Conus: The conus is within normal limits of signal intensity and morphology. Paraspinal soft tissues: Paraspinal soft tissues are within normal limits. Bilateral pelvocaliectasis and/or parapelvic cysts involving both kidneys. Lower thoracic spine: Visualized lower thoracic canal and foramina are patent. T12-L1: Mild spinal canal and bilateral foraminal stenosis due to disc bulging as well as L1 vertebral body height loss, new from the prior. L1-L2: Minimal disc bulging. No significant canal or foraminal stenosis. L2-L3: Canal and foramina are patent L3-L4: Canal and foramina are patent L4-L5: Mild disc height loss and bulging and facet hypertrophy. Mild bilateral foraminal stenosis. Canal is patent. Similar to the prior. L5-S1: Chronic spondylolysis/spondylol isthesis as above. Moderate right and severe left foraminal stenosis, similar to the prior. Canal is patent. Sacrum and iliac wings: The visualized sacrum and iliac wings are within normal limits. IMPRESSION: Subacute mild inferior endplate compression fracture of T12 and late subacute to chronic mild anterior wedging of L1, unchanged from 06/24/2018 CT but newly apparent from an older MRI dated 10/06/2013. 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 Progressed mild spinal canal narrowing at T12-L1 due to fractures and disc bulging and compared to 10/06/2013. Otherwise, spondylotic changes are similar to the prior, most notable for high-grade left greater than right foraminal narrowing at L5-S1. Anatomic Thoracic/Lumbar Variant: None. L4-5 is considered the level of the iliac crest and assume there are 5 lumbar-type vertebrae. Transcribed Using Voice Recognition Transcribe Date/Time: Oct 03 2018 10:24A Dictated by: HARDY LUA MD This examination was interpreted and the report reviewed and electronically signed by: HARDY LUA MD on Oct 03 2018 10:38AM EST [id number] [facility] Vital Signs Date Time Vital Sign Value Performing Clinician Facility 08-03-2024 13:35-0500 Body height 165.1 cm Tika Jones MD Work Phone: [facility] 08-03-2024 13:35-0500 Diastolic blood pressure 56 mm[Hg] Tika tamayo MD Work Phone: [facility] 08-03-2024 13:35-0500 Heart rate 71 /min Tika Jones MD Work Phone: [facility] 08-03-2024 13:35-0500 Respiratory rate 18 /min Tika Jones MD Work Phone: [facility] 08-03-2024 13:35-0500 SaO2% (BldA) [Mass fraction] 97 % Tika Jones MD Work Phone: [facility] 08-03-2024 13:35-0500 Systolic blood pressure 103 mm[Hg] Tika Jones MD Work Phone: [facility] 05-11-2024 16:43-0500 SaO2% (BldA) [Mass fraction] 97 % GUILLAUME DOMINGUEZ [facility] Comment on above: Order Comment: Specimen Type: ARTERIAL B LOOD SPECIMENOrdering Facility: [facility] Address: [address] [place] [address] Performed By: #### A LLBG ####[facility] LABORATORYCLIA [id number] [place] [address] [place] 05-06-2024 01:12-0500 Body temperature 98.2 [degF] Dr. Guillaume Dominguez MD Work Phone: [facility] 05-06-2024 01:12-0500 Diastolic blood pressure 57 mm[Hg] Dr. Guillaume hinds MD Work Phone: 4(606)416-893214 [place] [address] 05-06-2024 01:12-0500 Heart rate 76 /min Dr. Guillaume Dominguez MD Work Phone: 2(606)321-978053 [place] [address] 05-06-2024 01:12-0500 Respiratory rate 17 /min Dr. Guillaume Dominguez MD Work Phone: 3(972)858-345353 [place] [address] 05-06-2024 01:12-0500 SaO2% (BldA) [Mass fraction] 95 % Dr. Guillaume Dominguez MD Work Phone: 7(171)838-287153 [place] [address] 05-06-2024 01:12-0500 Systolic blood pressure 102 mm[Hg] Dr. Guillaume abarca MD Work Phone: 3(772)307-198553 [place] [address] 05-06-2024 00:24-0500 Inhaled oxygen flow rate 2 L/min Dr. Guillaume hinds MD Work Phone: 6(873)344-070753 [place] [address] 05-05-2024 22:59-0500 Body height 167.[address] Guillaume Dominguez MD Work Phone: 8(428)266-153253 [place] [address] 05-05-2024 22:59-0500 Body mass index (BMI) [Ratio] 30.7 kg/m2 Dr. Guillaume Dominguez MD Work Phone: 7(789)398-580814 [place] [address] 05-05-2024 22:59-0500 Body weight 86.[address] Guillaume Dominguez MD Work Phone: 0(885)543-713153 [place] [address] 04-28-2024 16:40-0500 Body mass index (BMI) [Ratio] 30.67 kg/m2 Guillaume Dominguez MD Work Phone: [facility] 04-28-2024 16:40-0500 Body temperature 98.01 [degF] Guillaume Dominguez MD Work Phone: [facility] 04-28-2024 16:40-0500 Body weight 83.6 kg Guillaume Dominguez MD Work Phone: [facility] 04-28-2024 16:40-0500 Diastolic blood pressure 68 mm[Hg] Guillaume Oliver Work Phone: [facility] 04-28-2024 16:40-0500 Heart rate 93 /min Guillaume Dominguez MD Work Phone: [facility] 04-28-2024 16:40-0500 Respiratory rate 16 /min Guillaume Dominguez MD Work Phone: [facility] 04-28-2024 16:40-0500 SaO2% (BldA) [Mass fraction] 98 % Guillaume Dominguez MD Work Phone: [facility] 04-28-2024 16:40-0500 Systolic blood pressure 117 mm[Hg] Guillaume Dominguez MD Work Phone: [facility] 01-10-2024 11:38-0400 Body mass index (BMI) [Ratio] 32.94 kg/m2 Comfort Patterson LEAD MINER.VENTILATION MECHANIC Work Phone: [facility] 01-10-2024 11:38-0400 Body weight 89.8 kg Comfort Patterson LEAD MINER.VENTILATION MECHANIC Work Phone: [facility] 01-10-2024 11:38-0400 Diastolic blood pressure 76 mm[Hg] Comfort Patterson LEAD MINER.VENTILATION MECHANIC Work Phone: [facility] 01-10-2024 11:38-0400 Heart rate 90 /min Comfort Patterson LEAD MINER.VENTILATION MECHANIC Work Phone: [facility] 01-10-2024 11:38-0400 Respiratory rate 16 /min Comfort Patterson LEAD MINER.VENTILATION MECHANIC Work Phone: [facility] 01-10-2024 11:38-0400 Systolic blood pressure 113 mm[Hg] Comfort Patterson LEAD MINER.VENTILATION MECHANIC Work Phone: [facility] 12-24-2023 11:24-0400 Body mass index (BMI) [Ratio] 33.28 kg/m2 Josefa Caputo LEAD MINER.REMOTE SENSING RESEARCH SCIENTIST Work Phone: [facility] 12-24-2023 11:24-0400 Body weight 90.72 kg Josefa Flynn LEAD MINER.REMOTE SENSING RESEARCH SCIENTIST Work Phone: [facility] 12-24-2023 11:24-0400 Diastolic blood pressure 70 mm[Hg] Josefa Flynn LEAD MINER.REMOTE SENSING RESEARCH SCIENTIST Work Phone: [facility] 12-24-2023 11:24-0400 Heart rate 80 /min Josefa Flynn LEAD MINER.REMOTE SENSING RESEARCH SCIENTIST Work Phone: [facility] 12-24-2023 11:24-0400 Respiratory rate 20 /min Josefa Flynn LEAD MINER.REMOTE SENSING RESEARCH SCIENTIST Work Phone: [facility] 12-24-2023 11:24-0400 Systolic blood pressure 124 mm[Hg] Josefa Flynn LEAD MINER.REMOTE SENSING RESEARCH SCIENTIST Work Phone: [facility] 12-10-2023 16:16-0400 Body mass index (BMI) [Ratio] 33.25 kg/m2 Guillaume Dominguez MD Work Phone: [facility] 12-10-2023 16:16-0400 Body temperature 98.1 [degF] Guillaume Dominguez MD Work Phone: [facility] 12-10-2023 16:16-0400 Body weight 90.63 kg Guillaume Dominguez MD Work Phone: [facility] 12-10-2023 16:16-0400 Diastolic blood pressure 68 mm[Hg] Guillaume Oliver Work Phone: [facility] 12-10-2023 16:16-0400 Heart rate 94 /min Guillaume Dominguez MD Work Phone: [facility] 12-10-2023 16:16-0400 Respiratory rate 18 /min Guillaume Dominguez MD Work Phone: [facility] 12-10-2023 16:16-0400 SaO2% (BldA) [Mass fraction] 97 % Guillaume Dominguez MD Work Phone: [facility] 12-10-2023 16:16-0400 Systolic blood pressure 118 mm[Hg] Guillaume Dominguez MD Work Phone: [facility] 10-29-2023 15:53-0400 Diastolic blood pressure 80 mm[Hg] Su Oliver Work Phone: [facility] 10-29-2023 15:53-0400 Heart rate 89 /min Su Nassar MD Work Phone: [facility] 10-29-2023 15:53-0400 Systolic blood pressure 142 mm[Hg] Su Nassar MD Work Phone: [facility] 10-11-2023 11:23-0400 Body height 165.1 cm Comfort Patterson LEAD MINER.VENTILATION MECHANIC Work Phone: [facility] 10-11-2023 11:23-0400 Body mass index (BMI) [Ratio] 33.78 kg/m2 Comfort Patterson LEAD MINER.VENTILATION MECHANIC Work Phone: [facility] 10-11-2023 11:23-0400 Body weight 92.08 kg Comfort Patterson LEAD MINER.VENTILATION MECHANIC Work Phone: [facility] 10-11-2023 11:23-0400 Diastolic blood pressure 81 mm[Hg] Comfort Patterson LEAD MINER.VENTILATION MECHANIC Work Phone: [facility] 10-11-2023 11:23-0400 Heart rate 88 /min Comfort Patterson LEAD MINER.VENTILATION MECHANIC Work Phone: [facility] 10-11-2023 11:23-0400 Respiratory rate 16 /min Comfort Patterson LEAD MINER.VENTILATION MECHANIC Work Phone: [facility] 10-11-2023 11:23-0400 Systolic blood pressure 119 mm[Hg] Comfort Patterson LEAD MINER.VENTILATION MECHANIC Work Phone: [facility] 08-13-2023 11:10-0400 Body weight 94.35 kg Josefa Flynn LEAD MINER.REMOTE SENSING RESEARCH SCIENTIST Work Phone: [facility] 08-13-2023 11:10-0400 Diastolic blood pressure 70 mm[Hg] Josefa Flynn LEAD MINER.REMOTE SENSING RESEARCH SCIENTIST Work Phone: [facility] 08-13-2023 11:10-0400 Heart rate 98 /min Josefa Flynn LEAD MINER.REMOTE SENSING RESEARCH SCIENTIST Work Phone: [facility] 08-13-2023 11:10-0400 Respiratory rate 16 /min Josefa Flynn LEAD MINER.REMOTE SENSING RESEARCH SCIENTIST Work Phone: [facility] 08-13-2023 11:10-0400 SaO2% (BldA) [Mass fraction] 95 % Josefa Flynn LEAD MINER.REMOTE SENSING RESEARCH SCIENTIST Work Phone: [facility] 08-13-2023 11:10-0400 Systolic blood pressure 116 mm[Hg] Josefa Flynn LEAD MINER.REMOTE SENSING RESEARCH SCIENTIST Work Phone: [facility] 08-11-2023 08:59-0400 Body weight 94.26 kg Martha Bozman DO Work Phone: [facility] 08-11-2023 08:59-0400 Diastolic blood pressure 79 mm[Hg] Martha Bozman DO Work Phone: [facility] 08-11-2023 08:59-0400 Heart rate 89 /min Martha Bozman DO Work Phone: [facility] 08-11-2023 08:59-0400 Systolic blood pressure 127 mm[Hg] Martha Bozman D O Work Phone: [facility] 07-29-2023 09:57-0500 Body height 165.1 cm Radha Walters MD Work Phone: [facility] 07-29-2023 09:57-0500 Body weight 94.21 kg Radha Walters MD Work Phone: [facility] 07-08-2023 15:43-0500 Body weight 94.8 kg Rajiv Walker MD Work Phone: [facility] 07-08-2023 15:43-0500 Diastolic blood pressure 82 mm[Hg] Rajiv Walker MD Work Phone: [facility] 07-08-2023 15:43-0500 Heart rate 101 /min Rajiv Walker MD Work Phone: [facility] 07-08-2023 15:43-0500 Systolic blood pressure 145 mm[Hg] Rajiv Oliver Work Phone: [facility] 06-25-2023 14:32-0500 Body height 165.1 cm Nhiconstantine De La Torre LEAD MINER.REMOTE SENSING RESEARCH SCIENTIST Work Phone: [facility] 06-25-2023 14:32-0500 Body weight 95.5 kg Nhiabi De La Torre LEAD MINER.REMOTE SENSING RESEARCH SCIENTIST Work Phone: [facility] 06-25-2023 14:32-0500 Diastolic blood pressure 68 mm[Hg] Nhi De La Torre LEAD MINER.REMOTE SENSING RESEARCH SCIENTIST Work Phone: [facility] 06-25-2023 14:32-0500 Heart rate 72 /min Nhiconstantine De La Torre LEAD MINER.REMOTE SENSING RESEARCH SCIENTIST Work Phone: [facility] 06-25-2023 14:32-0500 SaO2% (BldA) [Mass fraction] 98 % Nhi De La Torre LEAD MINER.REMOTE SENSING RESEARCH SCIENTIST Work Phone: [facility] 06-25-2023 14:32-0500 Systolic blood pressure 118 mm[Hg] Nhi De La Torre LEAD MINER.REMOTE SENSING RESEARCH SCIENTIST Work Phone: [facility] 06-12-2023 23:05-0500 Diastolic blood pressure 74 mm[Hg] [facility] 06-12-2023 23:05-0500 Heart rate 78 /min [facility] 06-12-2023 23:05-0500 Respiratory rate 16 /min [facility] 06-12-2023 23:05-0500 SaO2% (BldA) [Mass fraction] 97 % [facility] 06-12-2023 23:05-0500 Systolic blood pressure 157 mm[Hg] [facility] 06-12-2023 19:17-0500 Body height 167.64 cm [facility] 06-12-2023 19:17-0500 Body mass index (BMI) [Ratio] 35.6 kg/m2 [facility] 06-12-2023 19:17-0500 Body temperature 97.1 [degF] [facility] 06-12-2023 19:17-0500 Body weight 100.3 kg [facility] 05-14-2023 10:54-0500 Body temperature 98.71 [degF] Guillaume Dominguez MD Work Phone: [facility] 05-14-2023 10:54-0500 Body weight 96.62 kg Guillaume Dominguez MD Work Phone: [facility] 05-14-2023 10:54-0500 Diastolic blood pressure 68 mm[Hg] Guillaume Oliver Work Phone: [facility] 05-14-2023 10:54-0500 Heart rate 74 /min Guillaume Dominguez MD Work Phone: [facility] 05-14-2023 10:54-0500 Respiratory rate 18 /min Guillaume Dominguez MD Work Phone: [facility] 05-14-2023 10:54-0500 SaO2% (BldA) [Mass fraction] 97 % Guillaume Dominguez MD Work Phone: [facility] 05-14-2023 10:54-0500 Systolic blood pressure 110 mm[Hg] Guillaume Dominguez MD Work Phone: [facility] 02-26-2023 19:30-0400 Diastolic blood pressure 98 mm[Hg] [facility] 02-26-2023 19:30-0400 Heart rate 71 /min [facility] 02-26-2023 19:30-0400 Respiratory rate 16 /min [facility] 02-26-2023 19:30-0400 SaO2% (BldA) [Mass fraction] 95 % [facility] 02-26-2023 19:30-0400 Systolic blood pressure 116 mm[Hg] [facility] 02-26-2023 17:33-0400 Body height 167.64 cm [facility] 02-26-2023 17:33-0400 Body mass index (BMI) [Ratio] 33 kg/m2 [facility] 02-26-2023 17:33-0400 Body temperature 96.9 [degF] [facility] 02-26-2023 17:33-0400 Body weight 93 kg [facility] 02-04-2023 13:43-0400 Diastolic blood pressure 80 mm[Hg] Mi Nurse Work Phone: [facility] 02-04-2023 13:43-0400 Heart rate 74 /min Mi Nurse Work Phone: [facility] 02-04-2023 13:43-0400 Systolic blood pressure 131 mm[Hg] Mi Nurse Work Phone: [facility] 02-02-2023 10:57-0400 Diastolic blood pressure 60 mm[Hg] Josefa Flynn LEAD MINER.REMOTE SENSING RESEARCH SCIENTIST Work Phone: [facility] 02-02-2023 10:57-0400 Heart rate 102 /min Josefa Flynn LEAD MINER.REMOTE SENSING RESEARCH SCIENTIST Work Phone: [facility] 02-02-2023 10:57-0400 SaO2% (BldA) [Mass fraction] 98 % Josefa Flynn LEAD MINER.REMOTE SENSING RESEARCH SCIENTIST Work Phone: [facility] 02-02-2023 10:57-0400 Systolic blood pressure 80 mm[Hg] Josefa Flynn LEAD MINER.REMOTE SENSING RESEARCH SCIENTIST Work Phone: [facility] 01-11-2023 08:43-0400 Body height 162.6 cm Maykel Whitfield DO Work Phone: [facility] 01-11-2023 08:43-0400 Body weight 95.84 kg Maykel Whitfield DO Work Phone: [facility] 01-11-2023 08:43-0400 Diastolic blood pressure 58 mm[Hg] Maykel hunt DO Work Phone: [facility] 01-11-2023 08:43-0400 Heart rate 77 /min Maykel Whitfield DO Work Phone: [facility] 01-11-2023 08:43-0400 SaO2% (BldA) [Mass fraction] 98 % Maykel Whitfield DO Work Phone: [facility] 01-11-2023 08:43-0400 Systolic blood pressure 96 mm[Hg] Maykel Holder no DO Work Phone: [facility] 12-30-2022 09:45-0400 Body weight 97.61 kg Su Nassar MD Work Phone: [facility] 12-30-2022 09:45-0400 Diastolic blood pressure 85 mm[Hg] Su Oliver Work Phone: [facility] 12-30-2022 09:45-0400 Heart rate 80 /min Su Nassar MD Work Phone: [facility] 12-30-2022 09:45-0400 Systolic blood pressure 147 mm[Hg] uS Nassar MD Work Phone: [facility] 10-27-2022 13:34-0400 Diastolic blood pressure 78 mm[Hg] Josefa Flynn LEAD MINER.REMOTE SENSING RESEARCH SCIENTIST Work Phone: [facility] 10-27-2022 13:34-0400 Systolic blood pressure 116 mm[Hg] Josefa Flynn LEAD MINER.REMOTE SENSING RESEARCH SCIENTIST Work Phone: [facility] 10-27-2022 13:08-0400 Heart rate 86 /min Josefa Flynn LEAD MINER.REMOTE SENSING RESEARCH SCIENTIST Work Phone: [facility] 10-27-2022 13:08-0400 SaO2% (BldA) [Mass fraction] 96 % Josefa Flynn LEAD MINER.REMOTE SENSING RESEARCH SCIENTIST Work Phone: [facility] 09-14-2022 10:33-0400 Heart rate 77 /min Moraima Montelongo MD Work Phone: [facility] 09-14-2022 10:33-0400 SaO2% (BldA) [Mass fraction] 97 % Moraima Montelongo MD Work Phone: [facility] 08-15-2022 11:28-0400 Body weight 108.86 kg Guillaume Dominguez MD Work Phone: [facility] 08-15-2022 11:28-0400 Diastolic blood pressure 72 mm[Hg] Guillaume Oliver Work Phone: [facility] 08-15-2022 11:28-0400 Heart rate 101 /min Guillaume Dominguez MD Work Phone: [facility] 08-15-2022 11:28-0400 Respiratory rate 20 /min Guillaume Dominguez MD Work Phone: [facility] 08-15-2022 11:28-0400 SaO2% (BldA) [Mass fraction] 99 % Guillaume Dominguez MD Work Phone: [facility] 08-15-2022 11:28-0400 Systolic blood pressure 126 mm[Hg] Guillaume Dominguez MD Work Phone: [facility] 07-07-2022 10:52-0500 Body temperature 96.4 [degF] Guillaume Dominguez MD Work Phone: [facility] 07-07-2022 10:52-0500 Body weight 106.59 kg Guillaume Dominguez MD Work Phone: [facility] 07-07-2022 10:52-0500 Diastolic blood pressure 78 mm[Hg] Guillaume Oliver Work Phone: [facility] 07-07-2022 10:52-0500 Heart rate 61 /min Guillaume Dominguez MD Work Phone: [facility] 07-07-2022 10:52-0500 Respiratory rate 18 /min Guillaume Dominguez MD Work Phone: [facility] 07-07-2022 10:52-0500 SaO2% (BldA) [Mass fraction] 95 % Guillaume Dominguez MD Work Phone: [facility] 07-07-2022 10:52-0500 Systolic blood pressure 118 mm[Hg] Guillaume Dominguez MD Work Phone: [facility] 06-11-2022 11:21-0500 Body height 167.6 cm Maykel Patel Jr., MD Work Phone: [facility] 06-11-2022 11:21-0500 Body weight 108.86 kg Maykel Patel Jr., MD Work Phone: [facility] 06-11-2022 11:21-0500 Diastolic blood pressure 69 mm[Hg] Maykel Patel Jr., MD Work Phone: [facility] 06-11-2022 11:21-0500 Systolic blood pressure 122 mm[Hg] Maykel Ptael Jr., MD Work Phone: [facility] 05-12-2022 17:18-0500 Body weight 109.32 kg Guillaume Dominguez MD Work Phone: [facility] 05-12-2022 17:18-0500 Diastolic blood pressure 72 mm[Hg] Guillaume Oliver Work Phone: [facility] 05-12-2022 17:18-0500 Heart rate 78 /min Guillaume Dominguez MD Work Phone: [facility] 05-12-2022 17:18-0500 SaO2% (BldA) [Mass fraction] 100 % Guillaume Dominguez MD Work Phone: [facility] 05-12-2022 17:18-0500 Systolic blood pressure 118 mm[Hg] Guillaume Dominguez MD Work Phone: [facility] 05-06-2022 15:42-0500 Body temperature 98.29 [degF] Janae Simon-Rowdy LEAD MINER.REMOTE SENSING RESEARCH SCIENTIST Work Phone: [facility] 05-06-2022 15:42-0500 Body weight 111.77 kg Janae Praisler-Wood LEAD MINER.REMOTE SENSING RESEARCH SCIENTIST Work Phone: [facility] 05-06-2022 15:42-0500 Diastolic blood pressure 78 mm[Hg] Janae Galarzaisler-Rowdy LEAD MINER.REMOTE SENSING RESEARCH SCIENTIST Work Phone: [facility] 05-06-2022 15:42-0500 Heart rate 105 /min Janae Praisler-Rowdy LEAD MINER.REMOTE SENSING RESEARCH SCIENTIST Work Phone: [facility] 05-06-2022 15:42-0500 Respiratory rate 30 /min Janae Praisler-Wood LEAD MINER.REMOTE SENSING RESEARCH SCIENTIST Work Phone: [facility] 05-06-2022 15:42-0500 SaO2% (BldA) [Mass fraction] 98 % Janae Praisler-Wood LEAD MINER.REMOTE SENSING RESEARCH SCIENTIST Work Phone: [facility] 05-06-2022 15:42-0500 Systolic blood pressure 110 mm[Hg] Janae Praisler-Wood LEAD MINER.REMOTE SENSING RESEARCH SCIENTIST Work Phone: [facility] 04-28-2022 09:40-0500 Body height 165.1 cm Respiratory Wstr Work Phone: [facility] 04-28-2022 09:40-0500 Body weight 112.04 kg Respiratory Wstr Work Phone: [facility] 04-28-2022 09:40-0500 Heart rate 62 /min Respiratory Wstr Work Phone: [facility] 04-28-2022 09:40-0500 Respiratory rate 16 /min Respiratory Wstr Work Phone: [facility] 04-28-2022 09:40-0500 SaO2% (BldA) [Mass fraction] 97 % Respiratory Wstr Work Phone: [facility] 04-27-2022 13:37-0500 Body weight 112.04 kg Guillaume Dominguez MD Work Phone: [facility] 04-27-2022 13:37-0500 Diastolic blood pressure 82 mm[Hg] Guillaume Oliver Work Phone: [facility] 04-27-2022 13:37-0500 Heart rate 88 /min Guillaume Dominguez MD Work Phone: [facility] 04-27-2022 13:37-0500 SaO2% (BldA) [Mass fraction] 97 % Guillaume Dominguez MD Work Phone: [facility] 04-27-2022 13:37-0500 Systolic blood pressure 138 mm[Hg] Guillaume Dominguez MD Work Phone: [facility] 03-11-2022 09:17-0400 Body height 167.6 cm Oralia Garcia LEAD MINER.REMOTE SENSING RESEARCH SCIENTIST Work Phone: [facility] 03-11-2022 09:17-0400 Body weight 112.63 kg Oralia Garcia LEAD MINER.REMOTE SENSING RESEARCH SCIENTIST Work Phone: [facility] 03-11-2022 09:17-0400 Heart rate 92 /min Oralia Garcia LEAD MINER.REMOTE SENSING RESEARCH SCIENTIST Work Phone: [facility] 03-11-2022 09:17-0400 SaO2% (BldA) [Mass fraction] 96 % Oralia Garcia LEAD MINER.REMOTE SENSING RESEARCH SCIENTIST Work Phone: [facility] 03-04-2022 15:19-0400 Diastolic blood pressure 77 mm[Hg] Radha Walters MD Work Phone: [facility] 03-04-2022 15:19-0400 Heart rate 103 /min Radha Walters MD Work Phone: [facility] 03-04-2022 15:19-0400 Respiratory rate 18 /min Radha Walters MD Work Phone: [facility] 03-04-2022 15:19-0400 SaO2% (BldA) [Mass fraction] 96 % Radha Walters MD Work Phone: [facility] 03-04-2022 15:19-0400 Systolic blood pressure 107 mm[Hg] Radha Oliver Work Phone: [facility] 02-28-2022 08:37-0400 Diastolic blood pressure 83 mm[Hg] [facility] Work Phone: 02-28-2022 08:37-0400 Heart rate 75 /min [facility] Work Phone: 02-28-2022 08:37-0400 Respiratory rate 18 /min [facility] Work Phone: 02-28-2022 08:37-0400 SaO2% (BldA) [Mass fraction] 95 % [facility] Work Phone: 02-28-2022 08:37-0400 Systolic blood pressure 143 mm[Hg] [facility] Work Phone: 02-28-2022 05:36-0400 Body height 167.64 cm [facility] Work Phone: 02-28-2022 05:36-0400 Body mass index (BMI) [Ratio] 39.8 kg/m2 [facility] Work Phone: 02-28-2022 05:36-0400 Body temperature 98.6 [degF] [facility] Work Phone: 02-28-2022 05:36-0400 Body weight 111.9 kg [facility] Work Phone: 02-21-2022 02:46-0400 Diastolic blood pressure 73 mm[Hg] [facility] Work Phone: 02-21-2022 02:46-0400 Heart rate 75 /min [facility] Work Phone: 02-21-2022 02:46-0400 SaO2% (BldA) [Mass fraction] 97 % [facility] Work Phone: 02-21-2022 02:46-0400 Systolic blood pressure 94 mm[Hg] [facility] Work Phone: 02-21-2022 01:15-0400 Respiratory rate 22 /min [facility] Work Phone: 02-21-2022 01:08-0400 Body height 167.64 cm [facility] Work Phone: 02-21-2022 01:08-0400 Body mass index (BMI) [Ratio] 40 kg/m2 [facility] Work Phone: 02-21-2022 01:08-0400 Body temperature 96.7 [degF] [facility] Work Phone: 02-21-2022 01:08-0400 Body weight 112.6 kg [facility] Work Phone: 02-16-2022 20:55-0400 Respiratory rate 16 /min [facility] Work Phone: 02-16-2022 16:44-0400 Body height 167.64 cm [facility] Work Phone: 02-16-2022 16:44-0400 Body mass index (BMI) [Ratio] 39.6 kg/m2 [facility] Work Phone: 02-16-2022 16:44-0400 Body temperature 96.9 [degF] [facility] Work Phone: 02-16-2022 16:44-0400 Body weight 111.58 kg [facility] Work Phone: 02-16-2022 16:44-0400 Diastolic blood pressure 116 mm[Hg] [facility] Work Phone: 02-16-2022 16:44-0400 Heart rate 78 /min [facility] Work Phone: 02-16-2022 16:44-0400 SaO2% (BldA) [Mass fraction] 98 % [facility] Work Phone: 02-16-2022 16:44-0400 Systolic blood pressure 167 mm[Hg] [facility] Work Phone: 02-10-2022 14:58-0400 Body height 165.1 cm Guillaume Dominguez MD Work Phone: [facility] 02-10-2022 14:58-0400 Body weight 111.58 kg Guillaume Dominguez MD Work Phone: [facility] 02-10-2022 14:58-0400 Diastolic blood pressure 68 mm[Hg] Guillaume Oliver Work Phone: [facility] 02-10-2022 14:58-0400 Heart rate 82 /min Guillaume Dominguez MD Work Phone: [facility] 02-10-2022 14:58-0400 Systolic blood pressure 112 mm[Hg] Guillaume Dominguez MD Work Phone: [facility] 01-19-2022 14:43-0400 Body temperature 98.71 [degF] Comfort Patterson LEAD MINER.VENTILATION MECHANIC Work Phone: [facility] 01-19-2022 14:43-0400 Body weight 112.49 kg Comfort Patterson LEAD MINER.VENTILATION MECHANIC Work Phone: [facility] 01-19-2022 14:43-0400 Diastolic blood pressure 64 mm[Hg] Comfort Patterson LEAD MINER.VENTILATION MECHANIC Work Phone: [facility] 01-19-2022 14:43-0400 Heart rate 72 /min Comfort Patterson LEAD MINER.VENTILATION MECHANIC Work Phone: [facility] 01-19-2022 14:43-0400 Respiratory rate 24 /min Comfort Patterson LEAD MINER.VENTILATION MECHANIC Work Phone: [facility] 01-19-2022 14:43-0400 SaO2% (BldA) [Mass fraction] 97 % Comfort Patterson LEAD MINER.VENTILATION MECHANIC Work Phone: [facility] 01-19-2022 14:43-0400 Systolic blood pressure 112 mm[Hg] Comfort Patterson LEAD MINER.VENTILATION MECHANIC Work Phone: [facility] 12-17-2021 14:14-0400 Body temperature 96.69 [degF] Sasha Xavi LEAD MINER.REMOTE SENSING RESEARCH SCIENTIST Work Phone: [facility] 12-17-2021 14:14-0400 Body weight 114.49 kg Sasha Xavi LEAD MINER.REMOTE SENSING RESEARCH SCIENTIST Work Phone: [facility] 12-17-2021 14:14-0400 Diastolic blood pressure 82 mm[Hg] Sasha Xavi LEAD MINER.REMOTE SENSING RESEARCH SCIENTIST Work Phone: [facility] 12-17-2021 14:14-0400 Heart rate 90 /min Sasha Xavi LEAD MINER.REMOTE SENSING RESEARCH SCIENTIST Work Phone: [facility] 12-17-2021 14:14-0400 Respiratory rate 20 /min Sasha Hurley LEAD MINER.REMOTE SENSING RESEARCH SCIENTIST Work Phone: [facility] 12-17-2021 14:14-0400 SaO2% (BldA) [Mass fraction] 97 % Sasha Hurley LEAD MINER.REMOTE SENSING RESEARCH SCIENTIST Work Phone: [facility] 12-17-2021 14:14-0400 Systolic blood pressure 130 mm[Hg] Sasha Gallok LEAD MINER.REMOTE SENSING RESEARCH SCIENTIST Work Phone: [facility] 11-03-2021 10:33-0400 Body height 167.6 cm Gamaliel Alegre MD Work Phone: [facility] 11-03-2021 10:33-0400 Body weight 113.63 kg Gamaliel Alegre MD Work Phone: [facility] 11-03-2021 10:33-0400 Diastolic blood pressure 86 mm[Hg] Gamaliel Leonard i, MD Work Phone: [facility] 11-03-2021 10:33-0400 Heart rate 81 /min Gamaliel Alegre MD Work Phone: [facility] 11-03-2021 10:33-0400 SaO2% (BldA) [Mass fraction] 98 % Gamaliel Alegre MD Work Phone: [facility] 11-03-2021 10:33-0400 Systolic blood pressure 124 mm[Hg] Gamaliel Alegre MD Work Phone: [facility] 10-03-2021 14:32-0400 Body weight 112.95 kg Iban Soto MD Work Phone: [facility] 10-03-2021 14:32-0400 Diastolic blood pressure 68 mm[Hg] Iban Soto MD Work Phone: [facility] 10-03-2021 14:32-0400 Heart rate 60 /min Iban Soto MD Work Phone: [facility] 10-03-2021 14:32-0400 Respiratory rate 20 /min Iban Soto MD Work Phone: [facility] 10-03-2021 14:32-0400 SaO2% (BldA) [Mass fraction] 96 % Iban Soto MD Work Phone: [facility] 10-03-2021 14:32-0400 Systolic blood pressure 126 mm[Hg] Iban Soto MD Work Phone: [facility] 08-22-2021 14:29-0400 Body weight 114.76 kg Su Nassar MD Work Phone: [facility] 08-22-2021 14:29-0400 Diastolic blood pressure 74 mm[Hg] Su Oliver Work Phone: [facility] 08-22-2021 14:29-0400 Heart rate 55 /min Su Nassar MD Work Phone: [facility] 08-22-2021 14:29-0400 Systolic blood pressure 112 mm[Hg] Su Nassar MD Work Phone: [facility] Encounters Encounter Date Encounter Type Care Provider Facility Start: 10-26-2024 ambulatory Deep [facility] ty:[facility] Start: 09-26-2024 ambulatory Deep [facility] Start: 09-26-2024 Registered Referred Deep Dela Cruz MD -[facility] Start: 09-21-2024 End: 09-21-[address] Guillaume Dominguez MD Work Phone: [facility] Work Phone: Start: 09-21-2024 End: 09-21-2024 Departed Referred Deep Dela Cruz MD -[facility] Start: 09-21-2024 End: 09-21-2024 ambulatory Deep BABCOCK Facility:[facility] Start: 09-18-2024 End: 09-18-2024 ambulatory Guillaume Dominguez MD Work Phone: [facility] [place] Start: 09-18-2024 End: 09-18-2024 Patient encounter procedure Guillaume Dominguez MD Work Phone: [facility] [place] Comment on above: Population Health Na vigation Outreach ([facility] ) Start: 09-11-2024 Registered Referred Deep Del[facility] -[facility] Start: 09-11-2024 End: 09-11-2024 ambulatory Deep BABCOCK Facility:[facility] Start: 08-17-2024 End: 08-17-2024 ambulatory Guillaume Dominguez MD Work Phone: [facility] [place] Start: 08-17-2024 End: 08-17-2024 Patient encounter procedure Guillaume Dominguez MD Work Phone: [facility] [place] Comment on above: Population Health Na vigation Outreach ([facility] ) Start: 08-11-2024 End: 08-11-[address] Guillaume Dominguez MD Work Phone: [facility] Work Phone: Start: 08-11-2024 End: 08-11-2024 Departed Referred Deep Dela Cruz MD -[facility] Start: 08-11-2024 Registered Referred Deep Dela Cruz MD -[facility] Start: 08-11-2024 End: 08-11-2024 ambulatory Deep BABCOCK Facility:[facility] Start: 08-09-2024 End: 08-16-2024 Telephone encounter Adina Lay APRN.CNP Work Phone: [facility] Comment on above: Medication Dosage Ad justment Start: 08-08-2024 End: 08-08-[address] 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, subsequent encounter (Primary Dx) Start: 08-03-2024 End: 08-03-2024 ambulatory TIKA JONES Facility:[facility] Start: 08-02-2024 End: 08-02-2024 ambulatory TIKA JONES [facility] Start: 08-02-2024 End: 08-02-2024 Subsequent hospital visit by physician Tika Jones MD Work Phone: [facility] Comment on above: Nontraumatic intracr anial hemorrhage, unspecified (HCC) Start: 08-01-2024 End: 08-01-2024 Telephone encounter Tika Jones MD Work Phone: [facility] Comment on above: [employer] - O [employer]r Intracranial hemorrh age (HCC) (Primary Dx) Start: 07-25-2024 ambulatory Deep BABCOCK Facil ty:[facility] Start: 07-25-2024 Registered Referred Deep Dela Cruz MD -[facility] Start: 07-10-2024 ambulatory Deep BABC[place] Facili ty:[facility] Start: 07-10-2024 Registered Referred Deep Dela Cruz MD -[facility] Start: 06-22-2024 End: 06-22-2024 Refill Rajiv Walker MD Work Phone: [facility] Comment on above: Refill Request Start: 06-20-2024 End: 06-20-2024 Departed Referred Deep Dela Cruz MD -[facility] Start: 06-20-2024 End: 06-20-2024 ambulatory Deep BABCOCK Facility:[facility] Start: 06-13-2024 End: 06-20-2024 Refill Rajiv Walker MD Work Phone: [facility] Comment on above: Refill Request Start: 06-09-2024 ambulatory Deep Flood ty:[facility] Start: 06-09-2024 Registered Referred Deep Del[facility] -[facility] Start: 06-05-2024 ambulatory Deep Flood ty:[facility] Start: 06-05-2024 Registered [facility] Start: 05-29-2024 End: 05-29-2024 Telephone encounter Guillaume Dominguez MD Work Phone: [facility] [place] Comment on above: [facility] requesting records Start: 05-29-2024 ambulatory Deep Flood ty:[facility] Start: 05-29-2024 Registered [facility] [place] Start: 05-22-2024 End: 07-04-2024 Telephone encounter Guillaume Dominguez MD Work Phone: [facility] [place] Comment on above: [facility] Start: 05-22-2024 ambulatory Deep Flood ty:[facility] Start: 05-22-2024 Registered Referred Deep Dela Cruz MD -[facility] Start: 05-09-2024 End: 05-11-2024 Telephone encounter Adina Lay APRN.REMOTE SENSING RESEARCH SCIENTIST Work Phone: [facility] Start: 05-06-2024 End: 05-06-2024 ambulatory Amanda Patterson APRN.REMOTE SENSING RESEARCH SCIENTIST Work Phone: Critical Care Start: 05-06-2024 Emergency department patient visit GUILLAUME DOMINGUEZ Facility:[facility] Start: 05-05-2024 End: 05-06-2024 Emergency department patient visit Dr. Arden Leger MD -Emergency Department Work Phone: Start: 05-05-2024 End: 05-05-2024 Telemedicine consultation with patient Adina Lay APRN.REMOTE SENSING RESEARCH SCIENTIST Work Phone: [facility] Start: 05-05-2024 End: 05-05-2024 ambulatory Adina Lay APRN.CNP Work Phone: Endocrinology [place] Comment on above: Type 2 diabetes leonie itus with peripheral neuropathy (HCC) (Primary Dx); DM (diabetes mellitus), type 2 with neurological complications (HCC); Aortic valve sclerosis Start: 05-03-2024 End: 05-03-2024 E-mail encounter from caregiver Moraima Montelongo MD Work Phone: Pain Management Start: 05-03-2024 End: 05-03-2024 Patient encounter procedure Moraima Montelongo MD Work Phone: Pain Management Comment on above: Appointment Needs Re scheduled: 06/09/[address] Montelongo Start: 04-28-2024 End: 04-28-2024 Office outpatient visit 25 minutes Guillaume Dominguez MD Work Phone: [facility] [place] Comment on above: Pruritic condition ( Primary Dx); Anemia, unspecified type; Type 2 diabetes mellitus with peripheral neuropathy (HCC); Vitamin D deficiency; Vitamin B12 deficiency; Pedal edema; Dementia, unspecified dementia severity, unspecified dementia type, unspecified whether behavioral, psychotic, or mood disturbance or anxiety (HCC) Start: 04-28-2024 End: 04-28-2024 ambulatory GUILLAUME DOMINGUEZ Facility:[facility] Start: 04-25-2024 ambulatory [facility] Start: 04-14-2024 End: 04-14-2024 Telephone encounter Oralia Garcia APRN.REMOTE SENSING RESEARCH SCIENTIST Work Phone: Pain Management Comment on above: Appointment Start: 03-30-2024 End: 03-30-2024 ambulatory MORAIMA MONTELONGO Facility:[facility] Start: 03-10-2024 End: 03-10-2024 Telephone encounter Moraima Montelongo MD Work Phone: Pain Management Comment on above: Cardiac Clearance (A nticoagulation ) Lumbar spondylosis ( Primary Dx); Spondylolisthesis of lumbar region; Radiculopathy, lumbar region Start: 03-10-2024 End: 03-10-2024 ambulatory GUILLAUME DOMINGUEZ Facility:[facility] Start: 03-10-2024 End: 03-10-2024 Patient encounter procedure Oralia Garcia APRN.REMOTE SENSING RESEARCH SCIENTIST Work Phone: Pain Management Comment on above: Lumbar spondylosis ( Primary Dx); Radiculopathy, lumbar region Start: 03-10-2024 End: 03-10-2024 ambulatory Wade Neely Facility:[facility] Start: 02-09-2024 End: 02-09-2024 ambulatory Guillaume Dominguez Facility:[facility] Start: 2024 ambulatory Moraima Montiel OLS Facili ty:[facility] Start: 01-28-2024 ambulatory [facility] Start: 01-13-2024 Telephone encounter Guillaume ventura MD Work Phone: [facility] [place] Comment on above: requesting allergy l ist to be faxed to [facility] Start: 01-12-2024 ambulatory [facility] Start: 01-12-2024 End: 02-04-2024 Evaluation and management of inpatient Allan Chi Michael Facility:[facility] Start: 01-10-2024 ambulatory Kerwin Jolazaruseri [facility] Start: 01-10-2024 End: 01-12-2024 Evaluation and management of inpatient Kerwin Jopperi Facility:[facility] Start: 01-10-2024 End: 01-10-2024 Office outpatient visit 15 minutes Comfort Patterson APRN.VENTILATION MECHANIC Work Phone: [facility] [place] Comment on above: UTI symptoms (Primar y Dx) Start: 01-10-2024 End: 01-10-2024 ambulatory GUILLAUME DOMINGUEZ Facility:[facility] Start: 12-31-2023 Telephone encounter Josefa ramirez LEAD MINER.REMOTE SENSING RESEARCH SCIENTIST Work Phone: [facility] [place] Comment on above: Results Start: 12-27-2023 End: 12-27-2023 ambulatory JOSEFA CAPUTO Facility:[facility] Start: 12-27-2023 End: 12-27-2023 Subsequent hospital visit by physician Laury [facility] Sanjeev Work Phone: Radiology Comment on above: Acute pain of right knee [M25.561] Start: 12-24-2023 End: 12-24-2023 ambulatory JOSEFA CAPUTO Facility:[facility] Start: 12-24-2023 End: 12-24-2023 Patient encounter procedure Josefa Caputo LEAD MINER.REMOTE SENSING RESEARCH SCIENTIST Work Phone: [facility] [place] Comment on above: Acute pain of right knee (Primary Dx) Start: 12-21-2023 Refill Guillaume abarca MD Work Phone: [facility] [place] Comment on above: Refill Request Start: 12-10-2023 End: 12-10-2023 ambulatory GUILLAUME DOMINGUEZ Facility:[facility] Start: 12-10-2023 End: 12-10-2023 Office outpatient visit 25 minutes Guillaume Dominguez MD Work Phone: [facility] [place] Comment on above: Cognitive impairment (Primary Dx); Type 2 diabetes mellitus with peripheral neuropathy (HCC); Class 1 obesity due to excess calories with body mass index (BMI) of 33.0 to 33.9 in adult, unspecified whether serious comorbidity present; Mixed hyperlipidemia; Vitamin D deficiency; Vitamin B12 deficiency; History of Jordin-en-Y gastric bypass; Iron deficiency; Encounter for long-term current use of medication Start: 11-08-2023 Telephone encounter Guillaume ventura MD Work Phone: [facility] [place] Comment on above: Patient Update; Medi cation Problem Start: 11-05-2023 ambulatory Radha Walters MD Work Phone: Dermatology Comment on above: Medical necessity Start: 10-29-2023 End: 10-29-2023 ambulatory SU NASSAR Facility:[facility] Start: 10-29-2023 End: 10-29-2023 Patient encounter procedure Su Nassar MD Work Phone: [facility]ocrinology [place] Comment on above: Type 2 diabetes leonie itus with peripheral neuropathy (HCC) (Primary Dx) Start: 10-28-2023 Refill Guillaume abarca MD Work Phone: [facility] [place] Comment on above: Refill Request Start: 10-11-2023 End: 10-11-2023 Office outpatient visit 25 minutes Comfort Patterson APRN.VENTILATION MECHANIC Work Phone: [facility] [place] Comment on above: 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, without long-term current use of insulin (HCC) (Primary Dx); Mixed hyperlipidemia; Class 3 severe obesity due to excess calories with serious comorbidity and body mass index (BMI) of 40.0 to 44.9 in adult ([facility]); Other specified glaucoma, unspecified laterality; Pernicious anemia; Lumbar spondylosis; Lumbar degenerative disc disease; Carotid artery stenosis without cerebral infarction, bilateral Start: 10-07-2023 Telephone encounter Rajiv domingo MD Work Phone: [facility] Comment on above: Medication Problem Start: 10-04-2023 End: 10-04-2023 Nursing evaluation of patient and report Mi Nurse Work Phone: [facility] [place] Comment on above: Pernicious anemia (P rimary Dx) Start: 09-28-2023 Telephone encounter Rajiv domingo MD Work Phone: [facility] Comment on above: Medication Problem Start: 09-17-2023 Refill Guillaume abarca MD Work Phone: [facility] [place] Comment on above: Refill Request Start: 09-06-2023 End: 09-06-2023 Nursing evaluation of patient and report Mi Nurse Work Phone: [facility] [place] Comment on above: Pernicious anemia (P rimary Dx) Start: 08-16-2023 Telephone encounter Josefa ramirez APRN.REMOTE SENSING RESEARCH SCIENTIST Work Phone: [facility] [place] Comment on above: Orders Medication Problem Start: 08-13-2023 Telephone encounter Guillaume ventura MD Work Phone: [facility] [place] Comment on above: Insurance Authorizat ion PA required Start: 08-13-2023 End: 08-13-2023 Patient encounter procedure Josefa Caputo APRN.REMOTE SENSING RESEARCH SCIENTIST Work Phone: [facility] [place] Comment on above: Current moderate epi sode of major depressive disorder, unspecified whether recurrent (HCC) (Primary Dx); Carotid stenosis, right; Memory deficit; Anxiety disorder, unspecified type; Radiculopathy, lumbar region; Chronic SI joint pain; Vitamin D deficiency; Vitamin B12 deficiency; Iron deficiency; Screening, lipid; Screening for thyroid disorder; Encounter for therapeutic drug monitoring Start: 08-11-2023 End: 08-11-2023 Patient encounter procedure Martha Germain DO Work Phone: Integrated [facility] Comment on above: Mild cognitive impai rment (Primary Dx); ASIM (obstructive sleep apnea) Start: 08-02-2023 End: 08-02-2023 Nursing evaluation of patient and report Mi Nurse Work Phone: [facility] [place] Comment on above: Pernicious anemia (P rimary Dx) Start: 07-29-2023 End: 07-29-2023 Patient encounter procedure Radha Walters MD Work Phone: Dermatology Comment on above: Seborrheic keratosis (Primary Dx); Lichen sclerosus et atrophicus; 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 Start: 07-21-2023 End: 07-21-2023 Subsequent [facility] Start: 07-08-2023 End: 07-08-2023 Patient encounter procedure Rajiv Walker MD Work Phone: Endocrinology [place] Comment on above: 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, without long-term current use of insulin (HCC) (Primary Dx); Class 1 obesity due to excess calories with serious comorbidity and body mass index (BMI) of 34.0 to 34.9 in adult Start: 07-07-2023 Telephone encounter Guillaume ventura MD Work Phone: [facility] [place] Comment on above: Abnormal mammogram l nikki Mammogram Result [place] [facility] Start: 06-25-2023 End: 06-25-2023 Office outpatient visit 25 minutes Nhi De La Torre APRN.CNP Work Phone: Cardiology Comment on above: Dyspnea on exertion (Primary Dx); Premature atrial complexes; Type 2 diabetes mellitus with peripheral neuropathy (HCC); Multiple subsegmental pulmonary emboli without acute cor pulmonale (HCC); ASIM (obstructive sleep apnea) Start: 06-12-2023 End: 06-12-2023 Emergency department patient visit [facility] Work Phone: Start: 05-14-2023 End: 05-14-2023 Office outpatient visit 25 minutes Guillaume Dominguez MD Work Phone: [facility] [place] Comment on above: Memory difficulties (Primary Dx); Vitamin D deficiency; Chronic cough; Type 2 diabetes mellitus with peripheral neuropathy (HCC); Breast cancer screening by mammogram; Encounter for immunization Start: 05-04-2023 End: 05-04-2023 Nursing evaluation of patient and report Mi Nurse Work Phone: [facility] Comment on above: Pernicious anemia (P rimary Dx) Start: 03-30-2023 End: 03-30-2023 ambulatory Su Nassar MD Work Phone: [facility] Comment on above: Type 2 diabetes leonie itus with peripheral neuropathy (HCC) (Primary Dx) Start: 03-30-2023 End: 03-30-2023 Telemedicine consultation with patient Su Nassar MD Work Phone: [facility] Start: 03-18-2023 Refill Josefa Caputo APRN.REMOTE SENSING RESEARCH SCIENTIST Work Phone: [facility] Medicine [place] Comment on above: Refill Request Start: 03-04-2023 End: 03-04-2023 Nursing evaluation of patient and report Mi Nurse Work Phone: [facility] Comment on above: Pernicious anemia (P rimary Dx) Start: 02-26-2023 End: 02-26-2023 Emergency department patient visit [facility] Work Phone: Start: 02-19-2023 Refill Guillaume abarca MD Work Phone: [facility] [place] Comment on above: Refill Request Start: 02-04-2023 End: 02-04-2023 Nursing evaluation of patient and report Mi Nurse Work Phone: [facility] Comment on above: Pernicious anemia (P rimary Dx) Start: 02-02-2023 Telephone encounter Josefa ramirez APRN.REMOTE SENSING RESEARCH SCIENTIST Work Phone: [facility] Comment on above: Orders Start: 02-02-2023 End: 02-02-2023 Patient encounter procedure Josefa Flynn RETANAREMOTE SENSING RESEARCH SCIENTIST Work Phone: Internal Medicine [place] Comment on above: Hypotension due to d rugs (Primary Dx); Chronic fatigue; Memory deficit; Obesity, Class II, BMI 35-39.9; Need for influenza vaccination; Encounter for therapeutic drug monitoring; Type 2 diabetes mellitus with peripheral neuropathy (HCC); Mixed hyperlipidemia Start: 01-28-2023 End: 01-28-2023 Subsequent hospital visit by physician [facility] Work Phone: Cardiology Lab Comment on above: Irregular heart rhyt hm [I49.9] Start: 01-27-2023 Telephone encounter Jo-Ann abarca ui application developer Lab Comment on above: Reminder Call Start: 01-13-2023 Telephone encounter Guillaume ventura MD Work Phone: [facility] [place] Comment on above: Forms Start: 01-11-2023 End: 01-11-2023 Patient encounter procedure Maykel Whitfield DO Work Phone: Cardiology Comment on above: FIELD (dyspnea on exer tion) (Primary Dx); Irregular heart rhythm; Premature atrial complexes; PAC (premature atrial contraction); Mixed hyperlipidemia; Carotid artery stenosis without cerebral infarction, bilateral; Type 2 diabetes mellitus with peripheral neuropathy (HCC); Atypical chest pain Start: 01-05-2023 Telephone encounter Su landin MD Work Phone: [facility] Comment on above: Medication Problem Start: 01-04-2023 End: 01-04-2023 Nursing evaluation of patient and report Mi Nurse Work Phone: [facility] Comment on above: Pernicious anemia (P rimary Dx) Start: 12-30-2022 End: 12-30-2022 Patient encounter procedure Su Nassar MD Work Phone: [facility] Comment on above: DM (diabetes mellitu s), type 2 with neurological complications (HCC) (Primary Dx); Type 2 diabetes mellitus with peripheral neuropathy (HCC) Start: 12-25-2022 Telephone encounter Moraima allen MD Work Phone: Pain Management Comment on above: Patient Question Start: 12-04-2022 Refill Guillaume abarca MD Work Phone: [facility] [place] Start: 11-06-2022 End: 11-06-2022 ambulatory Nhi O'Kwame PT [facility] Comment on above: Spinal stenosis of l umbar region, unspecified whether neurogenic claudication present (Primary Dx); Lumbar spondylosis; Spondylolisthesis of lumbar region; Radiculopathy, lumbar region Start: 11-03-2022 End: 11-03-2022 Nursing evaluation of patient and report Mi Nurse Work Phone: [facility] Comment on above: Pernicious anemia (P rimary Dx) Start: 10-27-2022 Telephone encounter Josefa ramirez APRN.CNP Work Phone: [facility] Comment on above: [employer] - [employer] Start: 10-27-2022 End: 10-27-2022 Patient encounter procedure Josefa Caputo APRN.REMOTE SENSING RESEARCH SCIENTIST Work Phone: [facility] Comment on above: Current moderate epi sode of major depressive disorder, unspecified whether recurrent (HCC) (Primary Dx); Anxiety disorder, unspecified type; Radiculopathy, lumbar region; Chronic SI joint pain; Single subsegmental pulmonary embolism without acute cor pulmonale (HCC); Type 2 diabetes mellitus with peripheral neuropathy (HCC) Start: 10-12-2022 End: 10-12-2022 ambulatory Nhi O'Kwame PT [facility] Comment on above: Spinal stenosis of l umbar region, unspecified whether neurogenic claudication present (Primary Dx); Lumbar spondylosis; Spondylolisthesis of lumbar region; Radiculopathy, lumbar region Refill Request Start: 10-02-2022 Telephone encounter Moraima allen MD Work Phone: Pain Management Comment on above: Anticoagulation Start: 09-29-2022 End: 09-29-2022 Nursing evaluation of patient and report Mi Nurse Work Phone: [facility] Comment on above: Pernicious anemia (P rimary Dx) Start: 09-25-2022 Refill Su allen MD Work Phone: Endocrinology [place] Comment on above: Refill Request Start: 09-23-2022 End: 09-23-2022 Refill Guillaume Dominguez MD Work Phone: Internal Medicine [place] Comment on above: Refill Request Kidney stone [N20.0] Start: 09-17-2022 End: 09-17-2022 Orders Only Moraima Montelongo MD Work Phone: Pain Management Comment on above: Spondylolisthesis of lumbar region (Primary Dx); Spinal stenosis of lumbar region, unspecified whether neurogenic claudication present; Radiculopathy, lumbar region Spinal stenosis of l umbar region, unspecified whether neurogenic claudication present (Primary Dx); Lumbar spondylosis; Spondylolisthesis of lumbar region; Radiculopathy, lumbar region Start: 09-14-2022 End: 09-14-2022 Patient encounter procedure Moraima Montelongo MD Work Phone: Pain Management Comment on above: Spondylolisthesis of lumbar region (Primary Dx); Chronic SI joint pain; Spinal stenosis of lumbar region, unspecified whether neurogenic claudication present; Pain in left hip; Radiculopathy, lumbar region Start: 09-11-2022 Telephone encounter Moraima allen MD Work Phone: Pain Management Comment on above: Appointment Start: 09-10-2022 End: 09-10-2022 ambulatory Lucia Rojas CANDY SPREADER Work Phone: [facility] Comment on above: Spinal stenosis of l umbar region, unspecified whether neurogenic claudication present (Primary Dx); Lumbar spondylosis; Spondylolisthesis of lumbar region; Radiculopathy, lumbar region Start: 09-03-2022 End: 09-03-2022 ambulatory Veda Vital PT Work Phone: [facility] Comment on above: Spinal stenosis of l umbar region, unspecified whether neurogenic claudication present (Primary Dx); Lumbar spondylosis; Spondylolisthesis of lumbar region; Radiculopathy, lumbar region Start: 09-01-2022 End: 09-01-2022 Nursing evaluation of patient and report Mi Nurse Work Phone: [facility] Comment on above: Pernicious anemia (P rimary Dx) Start: 09-01-2022 End: 09-01-2022 ambulatory Veda Vital PT Work Phone: [facility] Comment on above: Spinal stenosis of l umbar region, unspecified whether neurogenic claudication present (Primary Dx); Lumbar spondylosis; Spondylolisthesis of lumbar region; Radiculopathy, lumbar region Start: 08-24-2022 Telephone encounter Guillaume ventura MD Work Phone: Internal Medicine [place] Comment on above: Patient Question Patient Update; Appo intment Start: 08-18-2022 End: 08-18-2022 ambulatory Veda Vital PT Work Phone: [facility] Comment on above: Spinal stenosis of l umbar region, unspecified whether neurogenic claudication present; Lumbar spondylosis; Radiculopathy, lumbar region; Spondylolisthesis of lumbar region Start: 08-15-2022 End: 08-15-2022 Office outpatient visit 40 minutes Guillaume Dominguez MD Work Phone: Internal Medicine [place] Comment on above: Irregular heart rhyt hm (Primary Dx); FIELD (dyspnea on exertion); Bilateral carotid artery stenosis; Premature atrial complexes; Dietary iron deficiency without anemia; Vitamin D deficiency; Elevated ferritin; B12 deficiency; Other fatigue Start: 08-12-2022 Telephone encounter Guillaume ventura MD Work Phone: Internal Medicine [place] Comment on above: referral request; Op ened In Error Referral Request; Pa tient Update Start: 08-07-2022 Refill Su allen MD Work Phone: [facility] Comment on above: Refill Request Start: 08-04-2022 End: 08-04-2022 Nursing evaluation of patient and report Mi Nurse Work Phone: [facility] Comment on above: Pernicious anemia (P rimary Dx) Start: 08-03-2022 Telephone encounter Guillaume ventura MD Work Phone: Internal Medicine [place] Comment on above: handicap prescriptio n Start: 07-31-2022 Telephone encounter Moraima allen MD Work Phone: Pain Management Comment on above: Patient Question Start: 07-07-2022 End: 07-07-2022 Nursing evaluation of patient and report Mi Nurse Work Phone: Family Medicine [place] Comment on above: Pernicious anemia (P rimary Dx) Start: 07-07-2022 End: 07-07-2022 Office outpatient visit 15 minutes Guillaume Dominguez MD Work Phone: Internal Medicine [place] Comment on above: Spondylolisthesis of lumbar region; Open compression fracture of L1 lumbar vertebra with routine healing, subsequent encounter; Anxiety disorder, unspecified type Start: 06-30-2022 Telephone encounter Guillaume ventura MD Work Phone: Internal Medicine [place] Comment on above: back pain persisting (Recommendations/) Start: 06-23-2022 Telephone encounter Moraima allen MD Work Phone: Pain Management Comment on above: Patient Question Start: 06-18-2022 Telephone encounter Guillaume ventura MD Work Phone: Internal Medicine [place] Comment on above: Patient Update Start: 06-17-2022 Telephone encounter Su landin MD Work Phone: [facility] Comment on above: Medication Question Start: 06-11-2022 End: 06-11-2022 Orders Only Moraima Montelongo MD Work Phone: Pain Management Comment on above: Spinal stenosis of l umbar region, unspecified whether neurogenic claudication present (Primary Dx); Lumbar spondylosis; Radiculopathy, lumbar region; Spondylolisthesis of lumbar region Kidney stone (Primar y Dx) Start: 06-04-2022 E-mail encounter fro m caregiver Maykel Patel Jr., MD Work Phone: [facility] [employer] Start: 06-04-2022 Patient encounter procedure Maykel Patel MD Work Phone: Urology Comment on above: [place] appointment Start: 06-03-2022 Telephone encounter Moraima allen MD Work Phone: Pain Management Comment on above: Patient Update Start: 05-29-2022 Telephone encounter Maykel Patel MD Work Phone: [facility] Comment on above: Appointment Start: 05-28-2022 Telephone encounter Maykel Patel MD Work Phone: Urology Comment on above: Urine Culture Result and Plan Start: 05-21-2022 Orders Only Eren Robbins MD Work Phone: Orthopaedics Comment on above: Finger injury, right , initial encounter (Primary Dx) Start: 05-12-2022 End: 05-12-2022 Office outpatient visit 15 minutes Guillaume Dominguez MD Work Phone: Internal Medicine [place] Comment on above: Crushing injury of r ight middle finger, sequela (Primary Dx); Renal calculus, left Start: 05-07-2022 Telephone encounter Maykel Patel MD Work Phone: Urology Comment on above: Eliquis question Start: 05-06-2022 End: 05-06-2022 Subsequent hospital visit by physician Laury [facility] [place] Work Phone: Radiology Comment on above: Crushing injury of r ight middle finger, initial encounter [S67.192A] Start: 05-06-2022 End: 05-06-2022 Patient encounter procedure Janae Sandoval APRN.CNP Work Phone: [facility] Comment on above: Crushing injury of r ight middle finger, initial encounter (Primary Dx); Open fracture of tuft of distal phalanx of finger; Nausea Start: 05-06-2022 ambulatory Guillaume abarca MD Work Phone: Internal Medicine [place] Comment on above: Finger Injury Start: 05-04-2022 End: 05-04-2022 Nursing evaluation of patient and report Mi Nurse Work Phone: Family Medicine [place] Comment on above: Pernicious anemia (P rimary Dx) Start: 04-29-2022 End: 04-29-2022 Patient encounter procedure Moraima Montelongo MD Work Phone: Pain Management Comment on above: Lumbosacral facet tawanna int syndrome (Primary Dx); Spondylolisthesis of lumbar region; Spinal stenosis of lumbar region, unspecified whether neurogenic claudication present Start: 04-28-2022 End: 04-28-2022 ambulatory Respiratory Therapist [facility] Work Phone: Pulmonary Medicine Comment on above: Spirometry Start: 04-28-2022 End: 04-28-2022 Patient encounter procedure Respiratory Therapist [facility] Start: 04-27-2022 End: 04-27-2022 Office outpatient visit 40 minutes Guillaume Dominguez MD Work Phone: Internal Medicine [place] Comment on above: FIELD (dyspnea on exer tion) (Primary Dx); Dietary iron deficiency without anemia; Grade I diastolic dysfunction; Chronic cough; Renal calculus, left; Primary hypertension; Hypoalbuminemia; DM (diabetes mellitus), type 2 with neurological complications ([facility]); B12 deficiency; Vitamin D deficiency; Irregular heart rhythm; Memory difficulty; Class 2 severe obesity due to excess calories with serious comorbidity and body mass index (BMI) of 39.0 to 39.9 in adult ([facility]); History of Jordin-en-Y gastric bypass Start: 04-09-2022 Telephone encounter Moraima allen MD Work Phone: Pain Management Comment on above: Patient Update; Appo intment Start: 04-08-2022 End: 04-08-2022 Subsequent hospital visit by physician Xr [facility] [place] Work Phone: Radiology Comment on above: Renal calculus, left [N20.0] Start: 04-06-2022 End: 04-06-2022 Nursing evaluation of patient and report Mi Nurse Work Phone: Family Medicine [place] Comment on above: Pernicious anemia (P rimary Dx) Start: 03-23-2022 Refill Su allen MD Work Phone: Endocrinology [place] Comment on above: Refill Request Start: 03-19-2022 Telephone encounter Radha sutherland MD Work Phone: Dermatology Comment on above: Patient Question Start: 03-12-2022 Orders Only Moraima Montelongo MD Work Phone: Pain Management Comment on above: Chronic left SI join t pain (Primary Dx); Sacroiliac joint pain Start: 03-11-2022 End: 03-11-2022 Patient encounter procedure Oralia Garcia APRN.REMOTE SENSING RESEARCH SCIENTIST Work Phone: Pain Management Comment on above: Chronic left SI join t pain (Primary Dx) Start: 03-10-2022 Telephone encounter Sue Fleming MD Work Phone: Dermatology Comment on above: Results Start: 03-04-2022 End: 03-04-2022 Patient encounter procedure Radha Walters MD Work Phone: Dermatology Comment on above: Lichen sclerosus et atrophicus (Primary Dx); Pruritus; Candidal vulvitis; Lichen sclerosus Start: 03-02-2022 End: 03-02-2022 Nursing evaluation of patient and report Mi Nurse Work Phone: Family Medicine [place] Comment on above: Pernicious anemia (P rimary Dx); Need for vaccination Start: 02-28-2022 End: 02-28-2022 [facility] Start: 02-27-2022 Telephone encounter Moraima allen MD Work Phone: Pain Management Comment on above: Patient Update Start: 02-21-2022 End: 02-21-2022 [facility] Start: 02-16-2022 End: 02-16-2022 [facility] Start: 02-16-2022 Telephone encounter Moraima allen MD Work Phone: Pain Management Comment on above: Medication Problem ( Stopped Eliquis for procedure-now has chest pain ) Start: 02-10-2022 End: 02-10-2022 Office outpatient visit 25 minutes Guillaume Dominguez MD Work Phone: Internal Medicine [place] Comment on above: Fatigue, unspecified type (Primary Dx); Primary hypertension; Hypoalbuminemia; Dietary iron deficiency without anemia; Elevated ferritin; Class 3 severe obesity due to excess calories with body mass index (BMI) of 40.0 to 44.9 in adult, unspecified whether serious comorbidity present ([facility]) Start: 02-10-2022 End: 02-10-2022 Orders Only Moraima Montelongo MD Work Phone: Pain Management Comment on above: Chronic left SI join t pain (Primary Dx); Sacroiliac joint pain; SI joint arthritis Need for influenza v accination (Primary Dx); Pernicious anemia Start: 02-05-2022 Telephone encounter Moraima allen MD Work Phone: Pain Management Comment on above: Schedule Injection Start: 02-04-2022 Telephone encounter Moraima allen MD Work Phone: Pain Management Comment on above: Patient Question Start: 01-30-2022 Telephone encounter Guillaume ventura MD Work Phone: Internal Medicine [place] Comment on above: Patient Question Start: 01-29-2022 Telephone encounter Guillaume ventura MD Work Phone: Internal Medicine [place] Comment on above: Orders Start: 01-19-2022 End: 01-19-2022 Patient encounter procedure Comfort Patterson APRN.VENTILATION MECHANIC Work Phone: Internal Medicine [place] Comment on above: Fatigue, unspecified type (Primary Dx); Iron deficiency Start: 01-12-2022 Orders Only Moraima Montelongo MD Work Phone: Pain Management Comment on above: Chronic left SI join t pain (Primary Dx); Sacroiliac joint pain; SI joint arthritis; Chronic SI joint pain Start: 01-05-2022 End: 01-05-2022 Orders Only Guillaume Dominguez MD Work Phone: Internal Medicine [place] Comment on above: Elevated ferritin (P rimary Dx) Pernicious anemia (P rimary Dx) Start: 12-17-2021 End: 12-17-2021 Patient encounter procedure Sasha Hurley APRN.REMOTE SENSING RESEARCH SCIENTIST Work Phone: [facility] Comment on above: Acute UTI (Primary D x); Urinary frequency; Glucosuria Start: 12-15-2021 Telephone encounter Guillaume ventura MD Work Phone: Internal Medicine [place] Comment on above: urine symptoms Start: 12-05-2021 Orders Only Gamaliel madrid MD Work Phone: Cardiology Start: 12-04-2021 Telephone encounter Gamaliel marcial MD Work Phone: Cardiology Comment on above: Patient Update Start: 11-03-2021 End: 11-03-2021 Nursing evaluation of patient and report Mi Nurse Work Phone: [facility] [place] Comment on above: Pernicious anemia (P rimary Dx) Start: 11-03-2021 End: 11-03-2021 Patient encounter procedure Gamaliel Alegre MD Work Phone: Cardiology Comment on above: Dyspnea on exertion (Primary Dx) Start: 10-30-2021 Orders Only Moraima Montelongo MD Work Phone: Pain Management Comment on above: Chronic left SI join t pain (Primary Dx); Sacroiliac joint pain; SI joint arthritis Start: 10-21-2021 Refill Guillaume abarca MD Work Phone: Internal Medicine [place] Comment on above: Refill Request Start: 10-07-2021 Telephone encounter Moraima allen MD Work Phone: Pain Management Comment on above: Appointment Start: 10-06-2021 Telephone encounter Tomer Soto MD Work Phone: Family [facility] [place] Comment on above: Results Start: 10-03-2021 End: 10-03-2021 Subsequent hospital visit by physician Xr [facility] [place] Work Phone: Radiology Comment on above: Shortness of breath on exertion [R06.02] Start: 10-03-2021 End: 10-03-2021 Patient encounter procedure Iban Soto MD Work Phone: [facility] [place] Comment on above: Irregular heart beat (Primary Dx); Shortness of breath on exertion; Fatigue, unspecified type; Skin tear of left forearm without complication, initial encounter; Lightheadedness Start: 09-29-2021 Telephone encounter Guillaume ventura MD Work Phone: [facility] [place] Comment on above: Results Start: 09-22-2021 Refill Su allen MD Work Phone: [facility] Comment on above: Refill Request Start: 09-01-2021 End: 09-01-2021 Nursing evaluation of patient and report Mi Nurse Work Phone: [facility] [place] Comment on above: Pernicious anemia (P rimary Dx) Start: 08-22-2021 End: 08-22-2021 Patient encounter procedure Su Nassar MD Work Phone: [facility] Comment on above: H/O gastric bypass ( Primary Dx); DM (diabetes mellitus), type 2 with neurological complications (HCC); Radiculopathy of thoracic region Start: 10-03-2018 End: 10-03-2018 Patient encounter procedure [facility] Start: 09-08-2017 End: 09-08-2017 [facility] Facility:[facility] Procedures Date Procedure Procedure Detail Performing Clinician Start: 09-11-2024 Urnls dip stick/tabl et reagent auto microscopy Dr. Guillaume Dominguez MD Work Phone: Start: 09-11-[address] Guillaume Dominguez MD Work Phone: Start: 08-02-2024 Ct head/brain w/o co ntrast material Tika Jones MD Work Phone: Start: 07-26-2024 Measurement of renal function Dr. Guillaume Dominguez MD Work Phone: Comment on above: Test not performed Start: 07-10-2024 Measurement of renal function Dr. Guillaume Dominguez MD Work Phone: Comment on above: GFR Calc Start: 06-20-2024 Measurement of renal function Dr. Guillaume Dominguez MD Work Phone: Comment on above: GFR Calc Start: 06-19-2024 Cl[address] diffic[address] e detection Dr. Guillaume Dominguez MD Work Phone: Start: 06-09-[address] Guillaume Dominguez MD Work Phone: Start: 05-23-[address] Guillaume Dominguez MD Work Phone: Start: 05-06-2024 Antibody screen GUILLAUME ARCHER Comment on above: Order Comment: Speci men Type: BLOOD SPECIMENOrdering Facility: [facility] Address: [address] [place] [address] Performed By: #### T SCR ####[facility] BLOOD BANKCLIA [id number] [place] [address] [place] Start: 05-05-2024 Computed tomography of thoracic spine without contrast Dr. Guillaume Dominguez MD Work Phone: Start: 05-05-2024 CT cervical spine wi thout contrast Dr. Guillaume Dominguez MD Work Phone: Start: 05-05-2024 CT of head without contrast Dr. Guillaume Dominguez MD Work Phone: Start: 05-05-2024 CT of lumbar spine Dr. Guillaume Dominguez MD Work Phone: Start: 07-29-2023 Culture fngi mold/ye ast prsmptv oth xcpt blood Radha Walters MD Work Phone: Start: 07-21-2023 Digital breast tomosynthesis unilateral Josefa Flynn LEAD MINER.REMOTE SENSING RESEARCH SCIENTIST Work Phone: Start: 06-12-2023 Plain X-ray of femur Start: 06-12-2023 CT of head without contrast Start: 06-12-2023 Pelvis X-ray Start: 05-14-2023 [employer] COVI D-19 VACCINE (2022- SEASON) AGE 12+ YR Guillaume Dominguez MD Work Phone: Start: 02-26-2023 Plain x-ray of pelvi s and lower extremity Start: 02-26-2023 CT of head without contrast Start: 02-02-2023 INFLUENZA VACCINE, P RSV FREE, AGE 65+ YR, HIGH DOSE, QUADRIVALENT (FLUZONE HIGH-DOSE) Josefa Caputo LEAD MINER.REMOTE SENSING RESEARCH SCIENTIST Work Phone: Start: 01-28-2023 Myocardial spect mul tiple studies Maykel Whitfield DO Work Phone: Start: 01-11-2023 Ecg routine ecg w/le ast 12 lds i&r only [facility] Provider Start: 12-30-2022 Hemoglobin A1c/Hemoglobin.total in Blood Su Nassar MD Work Phone: Start: 09-23-2022 Radiologic exam abdo men 1 view Maykel Patel MD Work Phone: Start: 08-15-2022 Ecg routine ecg w/le ast 12 lds i&r only [facility] Provider Start: 06-11-2022 Urnls dip stick/tabl et rgnt auto w/o microscopy Maykel Patel MD Work Phone: Start: 05-06-2022 Radex fingr minimum 2 views Janae Sandoval LEAD MINER.REMOTE SENSING RESEARCH SCIENTIST Work Phone: Start: 04-28-2022 Brncdilat rspse spmt ry pre&post-brncdilat admn Guillaume Dominguez MD Work Phone: Start: 04-08-2022 Radiologic exam abdo men 1 view Maykel Patel MD Work Phone: Start: 03-04-2022 Culture fngi mold/ye ast prsmptv oth xcpt blood Sue Villarreal MD Work Phone: Start: 03-04-2022 EXTRA SWAB CONTAINER PERFORMABLE Radha Walters MD Work Phone: Start: 03-04-2022 LAB EXTRA TUBES Radha wade MD Work Phone: Start: 03-02-2022 [employer] COVI D-19 BIVALENT BOOSTER VACCINE, AGE 12+ YR Comfort Patterson LEAD MINER.VENTILATION MECHANIC Work Phone: Start: 02-28-2022 Computed tomography of abdomen and pelvis with intravenous contrast Start: 02-21-2022 CT cervical spine wi thout contrast Start: 02-21-2022 CT of head without contrast Start: 02-21-2022 Pelvis X-ray Start: 02-16-2022 CT angiography of ch est with contrast Start: 02-10-2022 INFLUENZA SEASONAL QUADRIVALENT HIGH DOSE AGE 65+ Guillaume Dominguez MD Work Phone: Start: 12-17-2021 Gluc bld gluc mntr d ev cleared fda spec home use [facility] Provider Start: 12-17-2021 Urnls dip stick/tabl et rgnt auto w/o microscopy Jennifer Brian PA-C Work Phone: Start: 10-03-2021 Radiologic exam ches t 2 views Iban Soto MD Work Phone: Start: 02-10-2021 Adult depression scr eening assessment Su Nassar MD Work Phone: Start: 04-21-2015 History of gastroint estinal tract bypass History of Jordin-en-Y gastric bypass Guillamue Dominguez MD Work Phone: History of gastroint estinal tract bypass History of Jordin-en-Y gastric bypass Guillaume Dominguez MD Work Phone: Plan of Treatment Date Care Activity Detail Author Start: 05-19-2025 Diabetes: Estimated Glomerular Filtration Rate for Kidney Health Diabetes: Estimated Glomerular Filtration Rate for Kidney Health Start: 05-09-2025 End: 05-09-2025 Patient encounter procedure 05/09/2025 2:00 PM EST Office Visit [facility] [place] [address] [place] [address] Guillaume Dominguez MD [address] [place] [id number] 6 month follow up [facility] [place] Comment on above: 6 month follow up Start: 12-02-2024 Glaucoma screening Dilated Retinal Exam [facility] Start: 11-08-2024 End: 11-08-2024 Patient encounter procedure 11/08/2024 10:40 AM EDT Office Visit [facility] [place] [address] [facility] [place] [address] Guillaume Dominguez MD [address] [place] [address] 6 month follow up [facility] [place] Comment on above: 6 month follow up Start: 09-27-2024 Glaucoma screening Dilated Retinal Exam [facility] Start: 08-26-2024 Hepatitis B surface antibody level LDL Cholesterol [facility] Start: 08-03-2024 End: 08-03-2024 Patient encounter procedure 08/03/2024 1:45 PM EST Appointment RADIO CT SCAN [place] [employer] [address] [facility] [place] [address] CT BRAIN WO RADIO [facility] SCAN [place] [employer] Comment on above: CT BRAIN WO Start: 08-03-2024 End: 08-03-2024 Patient encounter procedure Geriatrics Comment on above: Mild cognitive impairment [G31.84] [address] today Start: 07-13-2024 End: 07-13-2024 Patient encounter procedure RADIO CT SCAN [place] [employer] Comment on above: brain wo [address] today CT BRAIN WO Start: 06-20-2024 End: 06-20-2024 Patient encounter procedure 06/20/2024 9:00 AM EST Office Visit Urology [address] [address] Maykel Patel Jr., MD [address] [place] [address] 1 year follow up Urology Comment on above: 1 year follow up Start: 05-31-2024 Advance Directive Discussion Advance Directive Discussion [facility] Start: 05-31-2024 Medicare Advantage Annual Wellness Visit Medicare Advantage Annual Wellness Visit Start: 05-18-2024 Diabetes: Urine Albumin-Creatinine Ratio for Kidney Health Diabetes: Urine Albumin-Creatinine Ratio for Kidney Health Start: 05-18-2024 Hepatitis B screening Urine Albumin:Creatinine Ratio [facility] Start: 05-18-2024 Hepatitis B surface antibody level LDL Cholesterol [facility] Start: 05-06-2024 End: 05-06-2024 Optx fem shft fx w/plate/screws w/wo cerclage ORIF FEMUR WITH PLATING Periprosthetic fracture of shaft of femur 05/06/2024 3:50 PM EST [place] Start: 05-06-2024 End: 05-06-2024 Craniectomy hmtma supratentorial extra/subdural CRANIOTOMY FOR EVACUATION OF SUPRATENTORIAL SUBDURAL HEMATOMA Subdural hematoma (HCC) 05/06/2024 8:00 AM EST [place] Start: 05-06-2024 [facility] Start: 05-06-2024 Aspiration precautions [facility] Start: 05-05-2024 End: 05-05-2024 Follow-up encounter 05/05/2024 10:00 AM EST [facility] Endocrinology [place] [id number] [place] [phone] Adina Lay, LEAD MINER.REMOTE SENSING RESEARCH SCIENTIST [id number] [place] [id number] 6 month follow up Endocrinology [place] Comment on above: 6 month follow up Start: 05-05-2024 End: 05-05-2024 Patient encounter procedure 05/05/2024 10:00 AM EST Office Visit Endocrinology [place] [id number] [place] [phone] Adina Lay, GM.REMOTE SENSING RESEARCH SCIENTIST [id number] [place] [id number] 6 month follow up Endocrinology [place] Comment on above: 6 month follow up Start: 04-28-2024 End: 04-28-2024 Patient encounter procedure 04/28/2024 4:00 PM EST Office Visit Internal Medicine [place] [address] [place] [address] Guillaume Dominguez MD [address] [place] [address] 6 month follow up [facility] [place] Comment on above: 6 month follow up Start: 03-30-2024 End: 03-30-2024 Admission to same day surgery center 03/30/2024 1:30 PM EDT - 03/30/2024 1:55 PM EDT Surgery [facility] [address] [place] [address] Moraima Montelongo MD [address] [facility] [place] [address] INJECTION(S) ANESTHETIC AGENT AND STEROID TRANSFORAMINAL EPIDURAL LUMBAR W/IMAGE GUIDANCE FLUORO OR CT [facility] Surgery Comment on above: INJECTION(S) ANESTHETIC AGENT AND STEROI D TRANSFORAMINAL EPIDURAL LUMBAR W/IMAGE GUIDANCE FLUORO OR CT Start: 03-30-2024 End: 03-30-2024 Njx anes&/strd w/img tfrml edrl lmbr/sac 1 lvl INJECTION(S) ANESTHETIC AGENT AND STEROID TRANSFORAMINAL EPIDURAL LUMBAR W/IMAGE GUIDANCE FLUORO OR CT Lumbar spondylosis Spondylolisthesis of lumbar region Radiculopathy, lumbar region 03/30/2024 1:30 PM EDT ME OR Start: 03-30-2024 Subsequent hospital visit by physician 03/30/2024 1:30 PM EDT Hospital Encounter [facility] [address] [place] [address] Moraima Montelongo MD [address] [facility] [place] [address] Lumbar spondylosis [M47.816], Spondylolisthesis of lumbar region [M43.16], Radiculopathy, lumbar region [M54.16] [facility] Surgery Comment on above: Lumbar spondylosis [M47.816], Spondyloli sthesis of lumbar region [M43.16], Radiculopathy, lumbar region [M54.16] Start: 03-30-2024 End: 03-30-2024 Admission to same day surgery center 03/30/2024 7:53 AM EDT - 03/30/2024 8:18 AM EDT Surgery [facility] [address] [place] [address] Moraima Montelongo MD [address] [facility] [place] [address] INJECTION(S) ANESTHETIC AGENT AND STEROID TRANSFORAMINAL EPIDURAL LUMBAR W/IMAGE GUIDANCE FLUORO OR CT [facility] Surgery Comment on above: INJECTION(S) ANESTHETIC AGENT AND STEROI D TRANSFORAMINAL EPIDURAL LUMBAR W/IMAGE GUIDANCE FLUORO OR CT Start: 03-30-2024 End: 03-30-2024 Njx anes&/strd w/img tfrml edrl lmbr/sac 1 lvl INJECTION(S) ANESTHETIC AGENT AND STEROID TRANSFORAMINAL EPIDURAL LUMBAR W/IMAGE GUIDANCE FLUORO OR CT Lumbar spondylosis Spondylolisthesis of lumbar region Radiculopathy, lumbar region 03/30/2024 7:53 AM EDT ME OR Start: 03-30-2024 Subsequent hospital visit by physician 03/30/2024 7:53 AM EDT Hospital Encounter [facility] [address] [place] [address] Moraima Montelongo MD [address] [facility] [place] [address] Lumbar spondylosis [M47.816], Spondylolisthesis of lumbar region [M43.16], Radiculopathy, lumbar region [M54.16] [facility] Surgery Comment on above: Lumbar spondylosis [M47.816], Spondyloli sthesis of lumbar region [M43.16], Radiculopathy, lumbar region [M54.16] Start: 03-09-2024 End: 03-09-2024 Patient encounter procedure 03/09/2024 10:00 AM EDT Office Visit Dermatology [address] [address] Radha Walters MD [address] [place] [address] follow up Dermatology Comment on above: follow up Start: 02-27-2024 Hemoglobin A1c measurement HbA1C [facility] Start: 02-15-2024 End: 02-15-2024 Patient encounter procedure 02/15/2024 9:15 AM EDT Office Visit Urology [address] [address] Maykel Patel Jr., MD [address] [place] [address] 1 year follow up Urology Comment on above: 1 year follow up Start: 02-11-2024 End: 02-11-2024 Patient encounter procedure 02/11/2024 11:00 AM EDT Office Visit Internal Medicine [facility] [address] [place], [place] [id number] Josefa Caputo APRN.REMOTE SENSING RESEARCH SCIENTIST [address] [place], [place] [id number] 3 month follow up [facility] Comment on above: 3 month follow up Start: 02-08-2024 End: 02-08-2024 Patient encounter procedure 02/08/2024 1:40 PM EDT Office Visit Internal Medicine [place] [address] [place], [place] [id number] Damaris Knott MD [address] [place], [place] [phone] srinivas consult with Dr. Knott per pcp [facility] Comment on above: srinivas consult with Dr. Knott per pcp Start: 02-03-2024 ANNUAL PCP TEAM CHRONIC DISEASE VISIT ANNUAL PCP TEAM CHRONIC DISEASE VISIT [facility] Start: 02-03-2024 BP CONTROLLED (<130/80) BP CONTROLLED (<130/80) [facility] in Start: 01-30-2024 COVID-19 Vaccine ( season) COVID-19 Vaccine ( season) Start: 01-30-2024 Covid-19 Vaccine ( season) Covid-19 Vaccine ( season) [facility] Start: 01-30-2024 Influenza vaccination Influ[facility] Start: 01-26-2024 End: 01-26-2024 Patient encounter procedure [facility] Comment on above: Nurse Visit srinivas consult with Dr Dara Knott per pcp Start: 01-12-2024 BP CONTROLLED (<130/80) BP CONTROLLED (<130/80) [facility] in Start: 01-10-2024 End: 04-10-2024 Urinalysis complete panel - Urine URINALYSIS WITH MICROSCOPIC, REFLEX CULTURE Lab Routine UTI symptoms Expected: 01/10/2024, Expires: 04/10/2024 [facility] Comment on above: Expected: 01/10/2024, Expires: 4 Start: 12-11-2023 End: 03-11-2024 25-hydroxyvitamin D3 [Mass/volume] in Serum or Plasma VITAMIN D 25 HYDROXY Lab Routine Vitamin D deficiency History of Jordin-en-Y gastric bypass Encounter for long-term current use of medication Expected: 12/11/2023, Expires: 03/11/2024 [facility] Comment on above: Expected: 12/11/2023, Expires: Start: 12-11-2023 End: 03-11-2024 CBC panel - Blood by Automated count COMPLETE BLOOD COUNT Lab Routine History of Jordin-en-Y gastric bypass Iron deficiency Encounter for long-term current use of medication Expected: 12/11/2023, Expires: 03/11/2024 [facility] Comment on above: Expected: 12/11/2023, Expires: Start: 12-11-2023 End: 03-11-2024 Cobalamin (Vitamin B12) [Mass/volume] in Serum or Plasma VITAMIN B12 Lab Routine Vitamin B12 deficiency History of Jordin-en-Y gastric bypass Encounter for long-term current use of medication Expected: 12/11/2023, Expires: 03/11/2024 [facility] Comment on above: Expected: 12/11/2023, Expires: Start: 12-11-2023 End: 03-11-2024 Comprehensive metabolic 2000 panel - Serum or Plasma COMPREHENSIVE METABOLIC PANEL Lab Routine 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 Encounter for long-term current use of medication Expected: 12/11/2023, Expires: 03/11/2024 [facility] Comment on above: Expected: 12/11/2023, Expires: Start: 12-11-2023 End: 03-11-2024 Ferritin [Mass/volume] in Serum or Plasma FERRITIN Lab Routine History of Jordin-en-Y gastric bypass Iron deficiency Encounter for long-term current use of medication Expected: 12/11/2023, Expires: 03/11/2024 [facility] Comment on above: Expected: 12/11/2023, Expires: Start: 12-11-2023 End: 03-11-2024 Folate [Mass/volume] in Serum or Plasma FOLATE, SERUM Lab Routine History of Jordin-en-Y gastric bypass Encounter for long-term current use of medication Expected: 12/11/2023, Expires: 03/11/2024 [facility] Comment on above: Expected: 12/11/2023, Expires: Start: 12-11-2023 End: 03-11-2024 Hemoglobin A1c in Blood HEMOGLOBIN A1C Lab Routine 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 Encounter for long-term current use of medication Expected: 12/11/2023, Expires: 03/11/2024 [facility] Work Phone: Comment on above: Expected: 12/11/2023, Expires: Start: 12-11-2023 End: 03-11-2024 Iron and Iron binding capacity panel - Serum or Plasma IRON AND TIBC Lab Routine History of Jordin-en-Y gastric bypass Iron deficiency Encounter for long-term current use of medication Expected: 12/11/2023, Expires: 03/11/2024 [facility] Comment on above: Expected: 12/11/2023, Expires: Start: 12-11-2023 End: 03-11-2024 Lipid 1996 panel - Serum or Plasma LIPID PANEL BASIC Lab Routine Mixed hyperlipidemia History of Jordin-en-Y gastric bypass Encounter for long-term current use of medication Expected: 12/11/2023, Expires: 03/11/2024 [facility] Comment on above: Expected: 12/11/2023, Expires: Start: 12-11-2023 End: 03-11-2024 LIPID PANEL, NONFASTING LIPID PANEL, NONFASTING Lab Routine Mixed hyperlipidemia History of Jordin-en-Y gastric bypass Encounter for long-term current use of medication Expected: 12/11/2023, Expires: 03/11/2024 [facility] Comment on above: Expected: 12/11/2023, Expires: Start: 12-11-2023 End: 03-11-2024 Retinol [Mass/volume] in Serum or Plasma VITAMIN A/RETINOL Lab Routine History of Jordin-en-Y gastric bypass Encounter for long-term current use of medication Expected: 12/11/2023, Expires: 03/11/2024 [facility] Comment on above: Expected: 12/11/2023, Expires: Start: 12-11-2023 End: 03-11-2024 Zinc [Mass/volume] in Serum or Plasma ZINC BLD Lab Routine History of Jordin-en-Y gastric bypass Encounter for long-term current use of medication Expected: 12/11/2023, Expires: 03/11/2024 [facility] Comment on above: Expected: 12/11/2023, Expires: Start: 12-10-2023 End: 12-10-2023 Patient encounter procedure 12/10/2023 3:40 PM EDT Office Visit Internal Medicine [facility] [address] [place] [address] Guillaume Dominguez MD [address] [place] [address] 6 month follow up [facility] Comment on above: 6 month follow up Start: 11-28-2023 ANNUAL PCP TEAM CHRONIC DISEASE VISIT ANNUAL PCP TEAM CHRONIC DISEASE VISIT [facility] Start: 11-28-2023 SHINGRIX VACCINE (2 of 3) SHINGRIX VACCINE (2 of 3) Daniela oliver [facility] Comment on above: Postponed from 11/25/2012 (Declined at t his time) Start: 11-28-2023 Urine microalbumin profile [facility] Comment on above: Postponed from 10/10/2016 (Declined at t his time) Start: 11-25-2023 End: 11-25-2023 Follow-up encounter 11/25/2023 9:00 AM EDT [facility] Dermatology [address] [place] [address] Radha Walters MD [address] [place] [address] 4 MONTH FOLLOW UP Dermatology Comment on above: 4 MONTH FOLLOW UP Start: 11-11-2023 End: 11-11-2023 Patient encounter procedure 11/11/2023 10:00 AM EDT Office Visit Dermatology [address] [address] Radha Walters MD [address] [place] [address] 4 MONTH FOLLOW UP Dermatology Comment on above: 4 MONTH FOLLOW UP Start: 11-04-2023 End: 11-04-2023 Nursing evaluation of patient and report 11/04/2023 1:30 PM EDT Nurse Visit Family Medicine [facility] [address] [place] [address] Nurse, [address] [place], [place] [phone] B-12 injection [facility] Comment on above: B-12 injection Start: 10-29-2023 End: 10-29-2023 Patient encounter procedure 10/29/2023 3:00 PM EDT Office Visit Endocrinology [place] [address] [place] [address] [place] [address] [facility] [address] [place] [address] 6 month follow up Endocrinology [place] Comment on above: 6 month follow up Start: 10-28-2023 ANNUAL PCP TEAM CHRONIC DISEASE VISIT ANNUAL PCP TEAM CHRONIC DISEASE VISIT [facility] Start: 10-28-2023 BP CONTROLLED (<130/80) BP CONTROLLED (<130/80) [facility] Start: 10-11-2023 End: 10-11-2023 Patient encounter procedure 10/11/2023 11:20 AM EDT Office Visit Internal Medicine [place] [address] [place] [address] Comfort Patterson APRN.VENTILATION MECHANIC [address] [place] [address] physical eval- for assisted living [facility] Comment on above: physical eval- for assisted living Start: 10-04-2023 End: 10-04-2023 Nursing evaluation of patient and report 10/04/2023 1:30 PM EDT Nurse Visit Family Medicine [facility] [address] [place] [address] Nurse, Ut [address] [place], [place] [phone] B-12 injection [facility] Comment on above: B-12 injection Start: 09-13-2023 Covid-19 Vaccine () Covid-19 Vaccine () [facility] Start: 08-17-2023 End: 11-16-2023 Hemoglobin A1c in Blood HGB A1C Lab Routine Expected: 08/17/2023 (Approximate), Expires: 11/16/2023 [facility] Work Phone: Comment on above: Expected: 08/17/2023 (Approximate), Expi res: 11/16/2023 Start: 08-17-2023 Hemoglobin A1c measurement HbA1C [facility] Start: 08-16-2023 End: 11-15-2023 25-hydroxyvitamin D3 [Mass/volume] in Serum or Plasma VITAMIN D 25 HYDROXY Lab Routine Vitamin D deficiency Expected: 08/16/2023, Expires: 11/15/2023 [facility] Work Phone: Comment on above: Expected: 08/16/2023, Expires: Start: 08-16-2023 ANNUAL PCP TEAM CHRONIC DISEASE VISIT ANNUAL PCP TEAM CHRONIC DISEASE VISIT [facility] Start: 08-16-2023 BP CONTROLLED (<130/80) BP CONTROLLED (<130/80) [facility] in Start: 08-16-2023 End: 11-15-2023 CBC W Auto Differential panel - Blood CBC + DIFF Lab Routine Encounter for therapeutic drug monitoring Iron deficiency Expected: 08/16/2023, Expires: 11/15/2023 [facility] Work Phone: Comment on above: Expected: 08/16/2023, Expires: Start: 08-16-2023 End: 11-15-2023 Cobalamin (Vitamin B12) [Mass/volume] in Serum or Plasma VITAMIN B12 BLOOD Lab Routine Vitamin B12 deficiency Iron deficiency Expected: 08/16/2023, Expires: 11/15/2023 [facility] Work Phone: Comment on above: Expected: 08/16/2023, Expires: Start: 08-16-2023 End: 11-15-2023 Comprehensive metabolic 2000 panel - Serum or Plasma COMP METABOLIC PANEL Lab Routine Encounter for therapeutic drug monitoring Expected: 08/16/2023, Expires: 11/15/2023 [facility] Work Phone: Comment on above: Expected: 08/16/2023, Expires: Start: 08-16-2023 End: 11-15-2023 Ferritin [Mass/volume] in Serum or Plasma FERRITIN BLD Lab Routine Iron deficiency Expected: 08/16/2023, Expires: 11/15/2023 [facility] Work Phone: Comment on above: Expected: 08/16/2023, Expires: Start: 08-16-2023 End: 11-15-2023 Iron and Iron binding capacity panel - Serum or Plasma IRON + TIBC Lab Routine Iron deficiency Expected: 08/16/2023, Expires: 11/15/2023 [facility] Work Phone: Comment on above: Expected: 08/16/2023, Expires: Start: 08-16-2023 End: 11-15-2023 LIPID PANEL, NONFASTING LIPID PANEL, NONFASTING Lab Routine Screening, lipid Expected: 08/16/2023, Expires: 11/15/2023 [facility] Work Phone: Comment on above: Expected: 08/16/2023, Expires: 4 Start: 08-16-2023 End: 11-15-2023 Thyrotropin [Units/volume] in Serum or Plasma TSH BLD Lab Routine Screening for thyroid disorder Expected: 08/16/2023, Expires: 11/15/2023 [facility] Work Phone: Comment on above: Expected: 08/16/2023, Expires: 4 Start: 07-07-2023 ANNUAL PCP TEAM CHRONIC DISEASE VISIT ANNUAL PCP TEAM CHRONIC DISEASE VISIT [facility] Start: 07-07-2023 BP CONTROLLED (<130/80) BP CONTROLLED (<130/80) [facility] Start: 07-02-2023 Hemoglobin A1c measurement HbA1C [facility] Start: 07-02-2023 Hemoglobin A1c/Hemoglobin.total in Blood HBA1C [facility] Start: 06-12-2023 [facility] Start: 06-11-2023 BP CONTROLLED (<130/80) BP CONTROLLED (<130/80) [facility] Start: 05-31-2023 Advance Directive Discussion Advance Directive Discussion [facility] Start: 05-31-2023 Behavioral Health Screening Behavioral Health Screening [facility] Start: 05-31-2023 Depression Assessment Depression Assessment [facility] Start: 05-14-2023 End: 08-13-2023 25-hydroxyvitamin D3 [Mass/volume] in Serum or Plasma VITAMIN D 25 HYDROXY Lab Routine Vitamin D deficiency Expected: 05/14/2023, Expires: 08/13/2023 [facility] Work Phone: Comment on above: Expected: 05/14/2023, Expires: 4 Start: 05-12-2023 ANNUAL PCP TEAM CHRONIC DISEASE VISIT ANNUAL PCP TEAM CHRONIC DISEASE VISIT [facility] Start: 05-12-2023 BP CONTROLLED (<130/80) BP CONTROLLED (<130/80) [facility] Start: 05-06-2023 BP CONTROLLED (<130/80) BP CONTROLLED (<130/80) [facility] Start: 04-30-2023 End: 06-30-2023 ALBUMIN/CREAT RATIO RND UR ALBUMIN/CREAT RATIO RND UR Lab Routine Type 2 diabetes mellitus with peripheral neuropathy (HCC) Expected: 04/30/2023, Expires: 06/30/2023 [facility] Work Phone: Comment on above: Expected: 04/30/2023, Expires: Start: 04-30-2023 End: 06-30-2023 CBC W Auto Differential panel - Blood CBC + DIFF Lab Routine Chronic fatigue Encounter for therapeutic drug monitoring Expected: 04/30/2023, Expires: 06/30/2023 [facility] Work Phone: Comment on above: Expected: 04/30/2023, Expires: 4 Start: 04-30-2023 End: 06-30-2023 Comprehensive metabolic 2000 panel - Serum or Plasma COMP METABOLIC PANEL Lab Routine Chronic fatigue Encounter for therapeutic drug monitoring Expected: 04/30/2023, Expires: 06/30/2023 [facility] Work Phone: Comment on above: Expected: 04/30/2023, Expires: Start: 04-30-2023 End: 06-30-2023 Ferritin [Mass/volume] in Serum or Plasma FERRITIN BLD Lab Routine Chronic fatigue Encounter for therapeutic drug monitoring Expected: 04/30/2023, Expires: 06/30/2023 [facility] Work Phone: Comment on above: Expected: 04/30/2023, Expires: Start: 04-30-2023 End: 06-30-2023 Hemoglobin A1c in Blood HGB A1C Lab Routine Chronic fatigue Encounter for therapeutic drug monitoring Type 2 diabetes mellitus with peripheral neuropathy (HCC) Expected: 04/30/2023, Expires: 06/30/2023 [facility] Work Phone: Comment on above: Expected: 04/30/2023, Expires: Start: 04-30-2023 End: 06-30-2023 Iron and Iron binding capacity panel - Serum or Plasma IRON + TIBC Lab Routine Chronic fatigue Encounter for therapeutic drug monitoring Expected: 04/30/2023, Expires: 06/30/2023 [facility] Work Phone: Comment on above: Expected: 04/30/2023, Expires: Start: 04-30-2023 End: 06-30-2023 Lipid 1996 panel - Serum or Plasma LIPID PANEL BASIC Lab Routine Mixed hyperlipidemia Expected: 04/30/2023, Expires: 06/30/2023 [facility] Work Phone: Comment on above: Expected: 04/30/2023, Expires: Start: 04-27-2023 ANNUAL PCP TEAM CHRONIC DISEASE VISIT ANNUAL PCP TEAM CHRONIC DISEASE VISIT [facility] Start: 02-10-2023 ANNUAL PCP TEAM CHRONIC DISEASE VISIT ANNUAL PCP TEAM CHRONIC DISEASE VISIT [facility] Start: 01-29-2023 Covid-19 Vaccine () Covid-19 Vaccine () [facility] Start: 01-29-2023 Influenza vaccination INFLUENZA (#1) [facility] Start: 01-16-2023 Hepatitis B screening URINE ALBUMIN:CREATININE RATIO [facility] Start: 12-08-2022 Hemoglobin A1c/Hemoglobin.total in Blood HBA1C [facility] Start: 10-25-2022 Hemoglobin A1c/Hemoglobin.total in Blood HBA1C [facility] Start: 10-03-2022 ANNUAL PCP TEAM CHRONIC DISEASE VISIT ANNUAL PCP TEAM CHRONIC DISEASE VISIT [facility] Start: 09-09-2022 End: 07-11-2023 XR ABDOMEN 1V SUPINE XR ABDOMEN 1V SUPINE Radiology Routine Kidney stone Expected: 09/09/2022, Expires: 07/11/2023 [facility] Work Phone: Comment on above: Expected: 09/09/2022, Expires: Start: 08-25-2022 ANNUAL PCP TEAM CHRONIC DISEASE VISIT ANNUAL PCP TEAM CHRONIC DISEASE VISIT [facility] Start: 08-21-2022 Hepatitis B screening URINE ALBUMIN:CREATININE RATIO [facility] Start: 08-15-2022 End: 10-15-2022 25-hydroxyvitamin D3 [Mass/volume] in Serum or Plasma VITAMIN D 25 HYDROXY Lab Routine Vitamin D deficiency Expected: 08/15/2022, Expires: 10/15/2022 [facility] Work Phone: Comment on above: Expected: 08/15/2022, Expires: Start: 08-15-2022 End: 10-15-2022 CBC panel - Blood by Automated count CBC Lab Routine Irregular heart rhythm Dietary iron deficiency without anemia Expected: 08/15/2022, Expires: 10/15/2022 [facility] Work Phone: Comment on above: Expected: 08/15/2022, Expires: Start: 08-15-2022 End: 10-15-2022 Cobalamin (Vitamin B12) [Mass/volume] in Serum or Plasma VITAMIN B12 BLOOD Lab Routine B12 deficiency Other fatigue Expected: 08/15/2022, Expires: 10/15/2022 [facility] Work Phone: Comment on above: Expected: 08/15/2022, Expires: Start: 08-15-2022 End: 10-15-2022 Comprehensive metabolic 2000 panel - Serum or Plasma COMP METABOLIC PANEL Lab Routine Irregular heart rhythm Expected: 08/15/2022, Expires: 10/15/2022 [facility] Work Phone: Comment on above: Expected: 08/15/2022, Expires: Start: 08-15-2022 End: 10-15-2022 Ferritin [Mass/volume] in Serum or Plasma FERRITIN BLD Lab Routine Elevated ferritin Other fatigue Expected: 08/15/2022, Expires: 10/15/2022 [facility] Work Phone: Comment on above: Expected: 08/15/2022, Expires: 3 Start: 08-15-2022 End: 10-15-2022 Folate [Mass/volume] in Serum or Plasma FOLATE SERUM Lab Routine Other fatigue Expected: 08/15/2022, Expires: 10/15/2022 [facility] Work Phone: Comment on above: Expected: 08/15/2022, Expires: Start: 08-15-2022 End: 10-15-2022 Hemoglobin A1c in Blood HGB A1C Lab Routine Irregular heart rhythm Expected: 08/15/2022, Expires: 10/15/2022 [facility] Work Phone: Comment on above: Expected: 08/15/2022, Expires: Start: 08-15-2022 End: 10-15-2022 Iron and Iron binding capacity panel - Serum or Plasma IRON + TIBC Lab Routine Other fatigue Expected: 08/15/2022, Expires: 10/15/2022 [facility] Work Phone: Comment on above: Expected: 08/15/2022, Expires: 3 Start: 08-15-2022 End: 10-15-2022 Magnesium [Mass/volume] in Serum or Plasma MAGNESIUM BLD Lab Routine Irregular heart rhythm Expected: 08/15/2022, Expires: 10/15/2022 [facility] Work Phone: Comment on above: Expected: 08/15/2022, Expires: Start: 08-15-2022 End: 10-15-2022 Methylmalonate [Moles/volume] in Serum or Plasma METHYLMALONIC ACID Lab Routine B12 deficiency Expected: 08/15/2022, Expires: 10/15/2022 [facility] Work Phone: Comment on above: Expected: 08/15/2022, Expires: 3 Start: 08-15-2022 End: 10-15-2022 Thyrotropin [Units/volume] in Serum or Plasma TSH BLD Lab Routine Irregular heart rhythm Expected: 08/15/2022, Expires: 10/15/2022 [facility] Work Phone: Comment on above: Expected: 08/15/2022, Expires: 3 Start: 08-15-2022 End: 10-15-2022 Thyroxine (T4) free [Mass/volume] in Serum or Plasma T4 FREE/FREE THYROX Lab Routine Irregular heart rhythm Expected: 08/15/2022, Expires: 10/15/2022 [facility] Work Phone: Comment on above: Expected: 08/15/2022, Expires: 3 Start: 08-15-2022 End: 10-15-2022 Triiodothyronine (T3) Free [Mass/volume] in Serum or Plasma T3 FREE BLD Lab Routine Irregular heart rhythm Expected: 08/15/2022, Expires: 10/15/2022 [facility] Work Phone: Comment on above: Expected: 08/15/2022, Expires: 3 Start: 07-19-2022 Hemoglobin A1c/Hemoglobin.total in Blood HBA1C [facility] Start: 07-03-2022 COVID-19 VACCINE (5 - Pfizer series) COVID-19 VACCINE (5 - Pfizer series) [facility] Start: 06-18-2022 End: 08-18-2022 Bacteria identified in Urine by Culture [facility] Work Phone: Comment on above: Expected: 06/18/2022, Expires: 3 Start: 05-31-2022 ADVANCE DIRECTIVE DISCUSSION ADVANCE DIRECTIVE DISCUSSION [facility] Start: 05-31-2022 DEPRESSION ASSESSMENT DEPRESSION ASSESSMENT [facility] Start: 04-27-2022 End: 06-27-2022 Cobalamin (Vitamin B12) [Mass/volume] in Serum or Plasma [facility] Work Phone: Comment on above: Expected: 04/27/2022, Expires: 3 Start: 04-27-2022 End: 06-27-2022 Comprehensive metabolic 2000 panel - Serum or Plasma [facility] Work Phone: Comment on above: Expected: 04/27/2022, Expires: 3 Start: 04-27-2022 End: 06-27-2022 Ferritin [Mass/volume] in Serum or Plasma [facility] Work Phone: Comment on above: Expected: 04/27/2022, Expires: 3 Start: 04-27-2022 End: 06-27-2022 Folate [Mass/volume] in Serum or Plasma [facility] Work Phone: Comment on above: Expected: 04/27/2022, Expires: 3 Start: 04-27-2022 End: 06-27-2022 Hemoglobin A1c in Blood [facility] Work Phone: Comment on above: Expected: 04/27/2022, Expires: 3 Start: 04-27-2022 End: 06-27-2022 Iron and Iron binding capacity panel - Serum or Plasma [facility] Work Phone: Comment on above: Expected: 04/27/2022, Expires: 3 Start: 03-30-2022 End: 05-30-2022 CBC W Auto Differential panel - Blood CBC + DIFF Lab Routine Iron deficiency Expected: 03/30/2022 (Approximate), Expires: 05/30/2022 [facility] Work Phone: Comment on above: Expected: 03/30/2022 (Approximate), Expi res: 05/30/2022 Start: 03-30-2022 End: 05-30-2022 Ferritin [Mass/volume] in Serum or Plasma FERRITIN BLD Lab Routine Iron deficiency Expected: 03/30/2022 (Approximate), Expires: 05/30/2022 [facility] Work Phone: Comment on above: Expected: 03/30/2022 (Approximate), Expi res: 05/30/2022 Start: 03-30-2022 End: 05-30-2022 Iron and Iron binding capacity panel - Serum or Plasma IRON + TIBC Lab Routine Iron deficiency Expected: 03/30/2022 (Approximate), Expires: 05/30/2022 [facility] Work Phone: Comment on above: Expected: 03/30/2022 (Approximate), Expi res: 05/30/2022 Start: 02-21-2022 Hemoglobin A1c/Hemoglobin.total in Blood HBA1C [facility] Start: 02-21-2022 Simple repair scalp/neck/ax/genit/trunk 2.5cm/< RPR S/N/AX/GEN/TRNK 2.5CM/< [facility] Work Phone: Start: 02-10-2022 Adult depression screening assessment DEPRESSION SCREENING [facility] Start: 02-10-2022 ANNUAL PCP TEAM CHRONIC DISEASE VISIT ANNUAL PCP TEAM CHRONIC DISEASE VISIT [facility] Start: 01-29-2022 Influenza vaccination INFLUENZA (#1) [facility] Start: 01-19-2022 End: 03-21-2022 Thyrotropin [Units/volume] in Serum or Plasma TSH BLD Lab Routine Fatigue, unspecified type Expected: 01/19/2022, Expires: 03/21/2022 [facility] Work Phone: Comment on above: Expected: 01/19/2022, Expires: 2 Start: 01-05-2022 End: 03-07-2022 Ferritin [Mass/volume] in Serum or Plasma FERRITIN BLD Lab Routine Elevated ferritin Expected: 01/05/2022, Expires: 03/07/2022 [facility] Work Phone: Comment on above: Expected: 01/05/2022, Expires: 2 Start: 01-05-2022 End: 03-07-2022 Iron and Iron binding capacity panel - Serum or Plasma IRON + TIBC Lab Routine Elevated ferritin Expected: 01/05/2022, Expires: 03/07/2022 [facility] Work Phone: Comment on above: Expected: 01/05/2022, Expires: 2 Start: 10-28-2021 End: 10-06-2022 CBC W Auto Differential panel - Blood CBC + DIFF Lab Routine Fatigue, unspecified type Elevated ferritin Expected: 10/28/2021 (Approximate), Expires: 10/06/2022 [facility] Work Phone: Comment on above: Expected: 10/28/2021 (Approximate), Expi res: 10/06/2022 Start: 10-28-2021 End: 10-06-2022 Comprehensive metabolic 2000 panel - Serum or Plasma COMP METABOLIC PANEL Lab Routine Fatigue, unspecified type Elevated ferritin Expected: 10/28/2021 (Approximate), Expires: 10/06/2022 [facility] Work Phone: Comment on above: Expected: 10/28/2021 (Approximate), Expi res: 10/06/2022 Start: 10-28-2021 End: 10-06-2022 Echocardiography ECHO Cardiology Routine Shortness of breath on exertion Irregular heart beat Fatigue, unspecified type Expected: 10/28/2021 (Approximate), Expires: 10/06/2022 [facility] Work Phone: Comment on above: Expected: 10/28/2021 (Approximate), Expi res: 10/06/2022 Start: 10-28-2021 End: 10-06-2022 FERRITIN BLD FERRITIN BLD Lab Routine Fatigue, unspecified type Elevated ferritin Expected: 10/28/2021 (Approximate), Expires: 10/06/2022 [facility] Work Phone: Comment on above: Expected: 10/28/2021 (Approximate), Expi res: 10/06/2022 Start: 10-10-2021 Hepatitis B surface antibody level LDL CHOLESTEROL [facility] Start: 08-12-2021 COVID-19 VACCINE (4 - Booster for Pfizer series) COVID-19 VACCINE (4 - Booster for Pfizer series) [facility] Start: 07-29-2021 Glaucoma screening Dilated Retinal Exam [facility] Start: 07-29-2021 Hepatitis C antibody, confirmatory test DILATED RETINAL EXAM [facility] Start: 06-09-2021 COVID-19 VACCINE (4 - Booster for Pfizer series) COVID-19 VACCINE (4 - Booster for Pfizer series) [facility] Start: 05-31-2021 ADVANCE DIRECTIVE DISCUSSION ADVANCE DIRECTIVE DISCUSSION [facility] Start: 05-31-2021 DEPRESSION ASSESSMENT DEPRESSION ASSESSMENT [facility] Start: 2017 RSV Immunization for Adults (1 - 1-dose 75+ series) RSV Immunization for Adults (1 - 1-dose 75+ series) Start: 2017 RSV Vaccine (1 - 1-dose 75+ series) RSV Vaccine (1 - 1-dose 75+ series) [facility] Start: 10-10-2016 DTaP/Tdap/Td Vaccines (1 - Tdap) DTaP/Tdap/Td Vaccines (1 - Tdap) Start: 10-10-2016 Urine microalbumin profile [facility] Start: 09-23-2016 3 comp foot exam completed DIABETIC FOOT EXAM [facility] Start: 09-23-2016 Diabetic foot examination Diabetic Foot Exam [facility] Start: 11-25-2012 SHINGRIX VACCINE (2 of 3) SHINGRIX VACCINE (2 of 3) [facility] Start: 11-25-2012 Zoster Vaccines (2 of 3) Zoster Vaccines (2 of 3) [facility] Start: 2002 Hepatitis B Vaccine (1 of 3 - Risk 3-dose series) Hepatitis B Vaccine (1 of 3 - Risk 3-dose series) [facility] Start: 2002 RSV Vaccine (1 - 1-dose 60+ series) RSV Vaccine (1 - 1-dose 60+ series) [facility] Start: 02-08-1960 BP CONTROLLED (<130/80) BP CONTROLLED (<130/80) [facility] in Start: 02-08-1960 Depression Screening Depression Screening [facility] Start: 1954 Depression Screening Depression Screening Start: 02-08-1946 PNEUMOCOCCAL: 65+ (1 - PCV) PNEUMOCOCCAL: 65+ (1 - PCV) [facility] Bacteria identified in Urine by Culture URINE CULTURE Microbiology Routine Urinary frequency Ordered: 12/17/2021 [facility] Work Phone: Comment on above: Ordered: 12/17/2021 Bacteria identified in Urine by Culture URINE CULTURE Microbiology Routine UTI symptoms Ordered: 01/10/2024 [facility] Comment on above: Ordered: 01/10/2024 Bilirubin measuremen t, urine [facility] Work Phone: End: 08-31-2025 CT Head WO contrast CT BRAIN WO IVCON Radiology STAT Intracranial hemorrhage (HCC) 1 Occurrences starting 08/01/2024 until 08/31/2025 [facility] Work Phone: Comment on above: 1 Occurrences starting 08/01/2024 until 08/31/2025 Dstrj neurolytic age nt other peripheral nerve NRV DESTR RFA, CHEM OTHER Procedures Routine Chronic left SI joint pain Ordered: 03/11/2022 [facility] Work Phone: Comment on above: Ordered: 03/11/2022 End: 10-03-2022 ECG COMPLETE ECG COMPLETE ECG Routine Irregular heart beat 1 Occurrences starting 10/03/2021 until 10/03/2022 [facility] Work Phone: Comment on above: 1 Occurrences starting 10/03/2021 until 10/03/2022 End: 11-02-2022 ECG COMPLETE ECG COMPLETE ECG Routine Dyspnea on exertion 1 Occurrences starting 11/02/2021 until 11/02/2022 [facility] Work Phone: Comment on above: 1 Occurrences starting 11/02/2021 until 11/02/2022 End: 04-27-2023 ECG COMPLETE ECG COMPLETE ECG Routine Irregular heart rhythm 1 Occurrences starting 04/27/2022 until 04/27/2023 [facility] Work Phone: Comment on above: 1 Occurrences starting 04/27/2022 until 04/27/2023 End: 08-16-2023 ECG COMPLETE ECG COMPLETE ECG Routine Irregular heart rhythm FIELD (dyspnea on exertion) 1 Occurrences starting 08/15/2022 until 08/16/2023 [facility] Work Phone: Comment on above: 1 Occurrences starting 08/15/2022 until 08/16/2023 ECG COMPLETE ECG COMPLETE ECG 01/11/2023 8:40 AM EDT [facility] End: 01-12-2024 Echocardiography ECHO Cardiology Routine Irregular heart rhythm FIELD (dyspnea on exertion) Premature atrial complexes PAC (premature atrial contraction) Mixed hyperlipidemia Carotid artery stenosis without cerebral infarction, bilateral Type 2 diabetes mellitus with peripheral neuropathy (HCC) Atypical chest pain 1 Occurrences starting 01/11/2023 until 01/12/2024 [facility] Work Phone: Comment on above: 1 Occurrences starting 01/11/2023 until 01/12/2024 Glucose [Mass/volume ] in Serum or Plasma GLUCOSE, BLOOD (POC) Lab Routine Glucosuria Ordered: 12/17/2021 [facility] Work Phone: Comment on above: Ordered: 12/17/2021 Hemoglobin [Presence ] in Urine [facility] Work Phone: End: 05-27-2023 LUNG VOLUMES LUNG VOLUMES PFT Routine FIELD (dyspnea on exertion) Chronic cough 1 Occurrences starting 04/27/2022 until 05/27/2023 [facility] Work Phone: Comment on above: 1 Occurrences starting 04/27/2022 until 05/27/2023 LUNG VOLUMES LUNG VOLUMES PFT Routine FIELD (dyspnea on exertion) Chronic cough 04/28/2022 9:46 AM EST [facility] Work Phone: End: 08-05-2024 ARTIS DIAGNOSTIC RIGHT ARTIS DIAGNOSTIC RIGHT Radiology Routine Abnormal mammogram 1 Occurrences starting 07/07/2023 until 08/05/2024 [facility] Work Phone: Comment on above: 1 Occurrences starting 07/07/2023 until 08/05/2024 End: 06-12-2024 ARTIS SCREENING ARTIS SCREENING Radiology Routine Breast cancer screening by mammogram 1 Occurrences starting 05/14/2023 until 06/12/2024 [facility] Work Phone: Comment on above: 1 Occurrences starting 05/14/2023 until 06/12/2024 Measurement of keton es in urine using dipstick [facility] Work Phone: Microorganism identi fied in Unspecified specimen by Culture FUNGAL CULT + SMEAR Microbiology Routine Lichen sclerosus et atrophicus Pruritus 03/04/2022 3:36 PM EDT [facility] Work Phone: Microscopic urinalysis [facility] Work Phone: Njx anes&/strd w/img tfrml edrl lmbr/sac 1 lvl INJ TRANSFORAMINAL EPID ANES/STER LS SINGL Procedures Routine Spinal stenosis of lumbar region, unspecified whether neurogenic claudication present Radiculopathy, lumbar region 1 Occurrences starting 09/14/2022 [facility] Work Phone: Comment on above: 1 Occurrences starting 09/14/2022 Njx anes&/strd w/img tfrml edrl lmbr/sac 1 lvl INJ TRANSFORAMINAL EPID ANES/STER LS SINGL Procedures Routine Lumbar spondylosis Radiculopathy, lumbar region Ordered: 03/10/2024 [facility] Work Phone: Comment on above: Ordered: 03/10/2024 End: 02-10-2024 NM CARDIAC PERF STRESS/PHARM NM CARDIAC PERF STRESS/PHARM Radiology Routine Irregular heart rhythm FIELD (dyspnea on exertion) Premature atrial complexes PAC (premature atrial contraction) Mixed hyperlipidemia Carotid artery stenosis without cerebral infarction, bilateral Type 2 diabetes mellitus with peripheral neuropathy (HCC) Atypical chest pain 1 Occurrences starting 01/11/2023 until 02/10/2024 [facility] Work Phone: Comment on above: 1 Occurrences starting 01/11/2023 until 02/10/2024 OUTSIDE VENDOR CARDI AC OUTPATIENT EXTENDED RHYTHM RECORDING (WITHOUT TELEMETRY) OUTSIDE VENDOR CARDIAC OUTPATIENT EXTENDED RHYTHM RECORDING (WITHOUT TELEMETRY) Holter Routine Dyspnea on exertion Ordered: 11/03/2021 [facility] Work Phone: Comment on above: Ordered: 11/03/2021 Patient Education [place] Work Phone: Patient referral [facility] Work Phone: pH of Urine [facility] Work Phone: PT PLAN OF CARE CERTIFICATION PT PLAN OF CARE CERTIFICATION Procedures Routine Spinal stenosis of lumbar region, unspecified whether neurogenic claudication present Lumbar spondylosis Radiculopathy, lumbar region Spondylolisthesis of lumbar region Ordered: 08/19/2022 [facility] Work Phone: Comment on above: Ordered: 08/19/2022 PT PLAN OF CARE CERTIFICATION PT PLAN OF CARE CERTIFICATION Procedures Routine Spinal stenosis of lumbar region, unspecified whether neurogenic claudication present Lumbar spondylosis Spondylolisthesis of lumbar region Radiculopathy, lumbar region Ordered: 11/06/2022 [facility] Comment on above: Ordered: 11/06/2022 Specific gravity of Urine [facility] Work Phone: End: 05-27-2023 SPIROMETRY WITH DILATOR IF OBSTRUCTED SPIROMETRY WITH DILATOR IF OBSTRUCTED PFT Routine FIELD (dyspnea on exertion) Chronic cough 1 Occurrences starting 04/27/2022 until 05/27/2023 [facility] Work Phone: Comment on above: 1 Occurrences starting 04/27/2022 until 05/27/2023 SPIROMETRY WITH DILA TOR IF OBSTRUCTED SPIROMETRY WITH DILATOR IF OBSTRUCTED PFT Routine FIELD (dyspnea on exertion) Chronic cough 04/28/2022 9:46 AM EST [facility] Work Phone: UA DIP B/O UA DIP B/O Lab R outine UTI symptoms Ordered: 01/10/2024 [facility] Work Phone: Comment on above: Ordered: 01/10/2024 Urinalysis, blood, qualitative [facility] Work Phone: Urine dipstick for glucose [facility] Work Phone: Urine dipstick for leukocyte esterase [facility] Work Phone: Urine dipstick for nitrite [facility] Work Phone: Urine dipstick for protein [facility] Work Phone: Urine examination [place] Work Phone: Urine microscopy: epithelial cells [facility] Work Phone: Urine Microscopy: wh ite cells [facility] Work Phone: Urobilinogen [Presen ce] in Urine [facility] Work Phone: End: 08-05-2024 US BREAST LTD RIGHT US BREAST LTD RIGHT Radiology Routine Abnormal mammogram 1 Occurrences starting 07/07/2023 until 08/05/2024 [facility] Work Phone: Comment on above: 1 Occurrences starting 07/07/2023 until 08/05/2024 End: 08-12-2024 US Carotid arteries - bilateral US CAROTID ARTERIES [facility] Vascular Lab Routine Carotid stenosis, right 1 Occurrences starting 08/13/2023 until 08/12/2024 [facility] Work Phone: Comment on above: 1 Occurrences starting 08/13/2023 until 08/12/2024 End: 08-16-2023 US CAROTID ARTERIES [facility] US CAROTID ARTERIES [facility] Vascular Lab Routine Bilateral carotid artery stenosis 1 Occurrences starting 08/15/2022 until 08/16/2023 [facility] Work Phone: Comment on above: 1 Occurrences starting 08/15/2022 until 08/16/2023 End: 06-20-2023 XR DIGIT GENERAL 3V FRONTAL/LAT/OBL RIGHT XR DIGIT GENERAL 3V FRONTAL/LAT/OBL RIGHT Radiology Routine Finger injury, right, initial encounter 1 Occurrences starting 05/21/2022 until 06/20/2023 [facility] Work Phone: Comment on above: 1 Occurrences starting 05/21/2022 until 06/20/2023 End: 01-22-2025 XR Knee - right AP and Lateral XR KNEE LIMITED 2V AP/LAT RIGHT Radiology Routine Acute pain of right knee 1 Occurrences starting 12/24/2023 until 01/22/2025 [facility] Work Phone: Comment on above: 1 Occurrences starting 12/24/2023 until 01/22/2025 XR Knee - right AP a nd Lateral XR KNEE LIMITED 2V AP/LAT RIGHT Radiology Routine Acute pain of right knee 12/27/2023 1:54 PM EDT [facility] Work Phone: [facility] Immunizations Immunization Date Immunization Notes Care Provider [facility] 03-29-2024 influenza, seasonal, injectable Moraima Montelongo MD Work Phone: [facility] 05-14-2023 COVID-19 vaccine, ag e 12+ yr, season (PFIZER-BIONTECH) Guilluame Dominguez MD Work Phone: [facility] 02-02-2023 influenza (HD-IIV4) vaccine, age 65+ yr, high dose, quadrivalent, PF (FLUZONE HIGH-DOSE) Josefa Caputo APRN.[facility] Work Phone: [facility] Work Phone: 02-02-2023 influenza virus vacc ine, unspecified formulation Guillaume Dominguez MD Work Phone: [facility] 03-02-2022 COVID-19 booster vaccine, age 12+ yr, bivalent (PFIZER-BIONTECH) Ut Nurse Work Phone: [facility] Work Phone: 02-10-2022 influenza, high-dose , quadrivalent vaccine (FLUZONE HIGH DOSE QUADRIVALENT) Ut Nurse Work Phone: [facility] Work Phone: 04-14-2021 COVID-19 vaccine, ag e 12+ yr (PFIZER-BIONTECH - PURPLE TOP) Su Nassar MD Work Phone: [facility] Work Phone: 03-03-2021 influenza, high-dose , quadrivalent vaccine (FLUZONE HIGH DOSE QUADRIVALENT) Su Nassar MD Work Phone: [facility] Work Phone: 08-01-2020 COVID-19 vaccine, ag e 12+ yr (PFIZER-BIONTECH - PURPLE TOP) Su Nassar MD Work Phone: [facility] Work Phone: 07-11-2020 COVID-19 vaccine, ag e 12+ yr (PFIZER-BIONTECH - PURPLE TOP) Su Nassar MD Work Phone: [facility] Work Phone: 03-07-2020 influenza, high-dose , quadrivalent vaccine (FLUZONE HIGH DOSE QUADRIVALENT) Su Nassar MD Work Phone: [facility] Work Phone: 02-25-2019 influenza, high dose seasonal, preservative-free Su Nassar MD Work Phone: [facility] 03-01-2018 influenza, high dose seasonal, preservative-free Su Nassar MD Work Phone: [facility] Work Phone: 03-03-2017 influenza, high dose seasonal, preservative-free Su Nassar MD Work Phone: [facility] 10-09-2016 tetanus and diphther ia toxoids, adsorbed, preservative free, for adult use (5 Lf of tetanus toxoid and 2 Lf of diphtheria toxoid) Su Nassar MD Work Phone: [facility] Work Phone: 09-01-2016 pneumococcal conjuga te vaccine, 13 valent Su Nassar MD Work Phone: [facility] 04-08-2016 influenza, high dose seasonal, preservative-free Su Nassar MD Work Phone: [facility] Work Phone: 04-09-2015 influenza, high dose seasonal, preservative-free Su Nassar MD Work Phone: [facility] 03-16-2013 Influenza virus vaccine [facility] 01-25-2013 pneumococcal polysaccharide vaccine, 23 valent Su Nassar MD Work Phone: [facility] 09-30-2012 zoster vaccine, live Su chapman MD Work Phone: [facility] Work Phone: 06-04-2005 influenza virus vacc ine, unspecified formulation Su Nassar MD Work Phone: [facility] Work Phone: Payers Date Payer Category Payer Self-pay [id number] 2022 Medicare HMO [employer] MEDICARE [id number] 2017 Medicare [id number] 2017 Medicare HU[employer]NA MEDICARE [employer] GOLD PLUS [id number] 2017-Present [phone] [place] [phone] [facility] [id number] 2017 Medicare (Managed Care) HUMANA G OLD PLUS [id number] 2017 Private Health Insurance [id number] Unknown [id number] .2.462 Unknown [id number] [id number] .2.462 Unknown [id number] 2.16.840.1.032676.3.579 .2.462 Unknown [id number] 2.16.840.1.433948.3.579 .2.462 Unknown [id number] 2.16.840.1.153704.3.579 .2.462 Unknown [id number] 2.16.840.1.501625.3.579 .2.462 Unknown [id number] 2.16.840.1.979316.3.579 .2.462 Unknown [id number] 2.16.840.1.538575.3.579 .2.462 Unknown [id number] 2.16.840.1.659919.3.579 .2.462 Unknown [id number] 2.16.840.1.646123.3.579 .2.462 Unknown [id number] 2.16.840.1.364261.3.579 .2.462 Unknown [id number] 2.16.840.1.679067.3.579 .2.462 Unknown [id number] 2.16.840.1.225631.3.579 .2.462 Unknown [id number] 2.16.840.1.261321.3.579 .2.462 Unknown [id number] 2.16.840.1.227988.3.579 .2.462 Unknown [id number] 2.16.840.1.090160.3.579 .2.462 Unknown [id number] 2.16.840.1.431034.3.579 .2.462 Unknown [id number] 2.16.840.1.508582.3.579 .2.462 Unknown [id number] 2.16.840.1.936621.3.579 .2.462 Unknown [id number] 2.16.840.1.410874.3.579 .2.462 Unknown [id number] 2.16.840.1.782089.3.579 .2.462 Unknown [id number] 2.16.840.1.993006.3.579 .2.462 Unknown [id number] 2.16.840.1.716748.3.579 .2.462 Unknown [id number] 2.16.840.1.271329.3.579 .2.462 Unknown [id number] 2.16.840.1.486208.3.579 .2.462 Social History Date Type Detail Facility Start: 11-25-2010 End: 05-05-2024 Tobacco smoking status NHIS Never smoked tobacco [facility] Start: 08-22-2021 End: 08-03-2024 Alcohol intake Current non-drinker of alcohol (finding) [facility] Start: 1940 Sex Assigned At Not on file [facility] Start: 08-11-2021 End: 04-07-2022 Exposure to SARS-CoV-2 (event) Not sure [facility] Work Phone: Start: 09-28-2021 End: 10-08-2021 Exposure to SARS-CoV-2 (event) Unable to assess [facility] Work Phone: Start: 11-25-2010 Tobacco use and exposure Smokeless tobacco non-user [facility] Work Phone: Start: 02-16-2022 End: 06-12-2023 Tobacco smoking status NHIS Unknown if ever smoked [facility] Start: 08-27-2020 None [place] Start: 08-27-2020 Spouse/ Signif icant Other [facility] Start: 02-16-2022 Non-smoker [place] Start: 1940 [facility] Start: 10-05-2022 End: 11-10-2022 History of Social function [facility] Work Phone: Start: 10-05-2022 End: 11-10-2022 Tobacco use panel [facility] Work Phone: Adult Depression Screening Assessment 6 [facility] Work Phone: (I/We) worried wheth er (my/our) food would run out before (I/we) got money to buy more. Never true [facility] In the past 12 month s, was there a time when you were not able to pay the mortgage or rent on time? No [facility] Start: 07-31-2024 End: 09-01-2024 Sex Female (finding) Medical Equipment Procedure Code Equipment Code Equipment Origin al Text Equipment Identifier Dates ORIF, hip, using Gamma nail ([id number]) Orthopaedic bone screw, non-bioabsorbable, sterile [id number] FDA Start: 01-11-2024 ORIF, hip, using Gamma nail ([id number]) Orthopaedic bone screw, non-bioabsorbable, sterile [id number] FDA Start: 01-11-2024 ORIF, hip, using Gamma nail ([id number]) Femur nail, sterile [id number] FDA Start: 01-11-2024 [id number] Start: 11-09-2016 Comment on above: ONE TOUCH ULTRA [address] STRIPS TESTING 2 TIMES DAILY INSULIN NO DX E11.65 [id number], [id number], [id number], [id number], [id number], [id number] Start: 10-22-2020 End: 05-07-2024 Comment on above: Check sugars 3 times daily use to check sugars twice a day 1 Strip three times daily. Use as instructed DX: E11.42 Test blood sugar(s) 3 times daily. Dx: Other DM Code E11.42 Insulin: No ONE TOUCH ULTRA 2 TEST STRIPS TESTING 2 TIMES DAILY INSULIN NO DX E11.65 [id number] Start: 11-09-2016 End: 05-07-[address] us Bovine Collagen Matrix 3x3in Soft Tissue Patch - [id number] Start: 05-06-[address] us Bovine Collagen Matrix 3x3in Soft Tissue Patch - [id number] Start: 05-06-2024 Pangea Distal Fe mur Plate Left 280mm [id number] Start: 05-07-2024 Level One Neuro Screw Onedrive Drill Free 1.5 X 4 Mm Ti-6al-4v [id number] Ea - [id number] Start: 05-06-2024 Comment on above: Description: Entered from worksheet. Screws are needed to attach the plates to the skull. L1 Neuro Virgil Hl Cov Ultraone Contour W/Tab Scrw 6 Hl 18mm D T0.35mm Ti - [id number] Start: 05-06-2024 Lvl 1 Neuro Plt Ultraone Str W/Tab Scrw 4 Hole 22mm T0.35mm Ti-6al-4v 1ea - [id number] Start: 05-06-2024 Lvl 1 Neuro Plt Ultraone Str W/Tab Scrw 2 Hole 17mm T0.35mm Ti-6al-4v 1ea - [id number] Start: 05-06-2024 Screw Bone 3.5mm 36mm Axsos 3 Titanium Cortex Self Tap Lock Nonsterile - [id number] Start: 05-07-2024 Pangea Locking S crew 5mm X 65mm [id number] Start: 05-07-2024 Locking Screw, 5 .0mm / T20 / L75mm [id number] Start: 05-07-2024 Locking Screw, 5 .0mm / T20 / L70mm [id number] Start: 05-07-2024 Screw Bone 4.5mm 42mm Axsos 3 Titanium Cortex Self Tap Lock Nonsterile - [id number] Start: 05-07-2024 Locking Screw, 5 .0mm / T20 / L60mm [id number] Start: 05-07-2024 Locking Screw, 5 .0mm / T20 / L38mm [id number] Start: 05-07-2024 Screw Bone 3.5mm 32mm Titanium Cortical Lock Nonsterile Axsos 3 - [id number] Start: 05-07-2024 Screw Bone 3.5mm 34mm Titanium Cortical Nonsterile Axsos 3 - [id number] Start: 05-07-2024 Agent Avitene Collagen Hemostatic Microfibrillar Flour Sterile Latex Free 1 - [id number] Start: 05-06-2024 Functional Status Date Assessment Result Facility 03-25-2019 Are you deaf, or do you have serious difficulty hearing No 03/25/2019 11:46 AM Lety Galloway RN [facility] 03-25-2019 Are you blind, or do you have serious difficulty seeing, even when wearing glasses No 03/25/2019 11:46 AM Lety Galloway RN [facility] 03-25-2019 Do you have serious difficulty walking or climbing stairs No 03/25/2019 11:46 AM Lety Galloway RN [facility] 03-25-2019 Do you have difficul ty dressing or bathing No 03/25/2019 11:46 AM Lety Galloway, ISMAEL [facility] 03-25-2019 Because of a physica l, mental, or emotional condition, do you have difficulty doing errands alone such as visiting a physician's office or shopping No 03/25/2019 11:46 AM Lety Galloway RN [facility] Mental Status Date Assessment Result Facility 06-12-2023 Cognitive function Level Of Cons ciousness Awake;Alert;Appropriate;Fol lows Commands [facility] Work Phone: 02-16-2022 Cognitive function Voice/Name [facility] Work Phone: 03-25-2019 Because of a physica l, mental, or emotional condition, do you have serious difficulty concentrating, remembering, or making decisions No 03/25/2019 11:46 AM Lety Galloway RN No [facility] Clinical Notes 01-05-2019 to 09-18-2024 Natalya Fregoso - 09/18/2024 12:45 PM EDTBNatalya Grier - 08/17/2024 1:24 PM EDTTelephone Encounter - Geno Moise RN - 08/16/2024 11:58 AM EDTPatient Instructions Note Date & Type Note Facility 09-18-2024 History of Present illness Narrative POPULATION HEALTH NAVIGATION OUTREACH Action/FYI Patient outreach for HCC gaps; GOSIA, A1C, KED, AWV. Mychart sent to patient to schedule gaps. Reason for Outreach Care Gap/HCC or Scheduling Wellness Visits Care Gaps due: Medicare Annual Wellness Visit Diabetic Eye Exam HBA1C KED Patient Contacted: Unable or unnecessary to reach patient: MyChart message sent HCC related Updated appointment notes Navigation Signature: Natalya Byrd September 18, 2024 1:13 PM documented in this encounter [facility] 08-17-2024 History of Present illness Narrative POPULATION HEALTH NAVIGATION OUTREACH Action/FYI Patient to schedule A1C, AWV, KED, DIABETIC EYE EXAM Reason for Outreach Care Gap/HCC or Scheduling Wellness Visits Care Gaps due: Medicare Annual Wellness Visit Diabetic Eye Exam HBA1C KED Patient Contacted: Unable or unnecessary to reach patient: MyChart message sent HCC related Navigation Signature: Natalya Byrd August 17, 2024 1:28 PM documented in this encounter [facility] 08-16-2024 Telephone encounter Note Spoke with patient's daughter Lashaun and notified her of the Mounjaro dose change. Attempted to fax updated RX to [facility] at [phone] but it did not go through. Will try again later. Geno Moise RN [facility] 08-16-2024 Miscellaneous Notes Spoke with patient's daughter Lashaun and notified her of the Mounjaro dose change. Attempted to fax updated RX to [facility] at [phone] but it did not go through. Will try again later. Geno Moise RN Please call to let the Lashaun know that it is reasonable to reduce Mounjaro for now. I will send a prescription to her pharmacy for 2.5mg weekly. Once the appetite improves, she will likely need to resume 5mg dose. Thank you- Sasha Caldwell APRN.HIMA Images from the original note were not included. This nurse reached out to Lashaun- She reports patient had a fall and hit her head- had a craniotomy- broke her femur- not walking at this time. 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 She reports the nurse has reported to her that patients blood sugars have been low- typically in 70-90 range, highest one in the past month and 1/2 was 140. Patient is not eating as much as she was before- food is more regulated than it was in assisted living. Patient is also losing more weight than they had wanted. Nurse at senior living is requesting review- possibly lower dose of mounjaro. Lashaun reports she picks up this medication and takes it to the [facility]. She uses [facility]- phone number [phone]. This nurse requested a log of recent blood sugars to be faxed to us from [facility]. senior living requests a new order be faxed to [facility]- fax number to be provided via [employer] message. Patients daughter Lashaun calling in asking for a call back to discuss lowering the dosage of patients medication. Her food has decreased and her sugar reading are lower and asking to lower tirzepatide (MOUNJARO) 5 mg/0.5 mL pen injector Please call Lashaun back [phone] Thank you Hope Delio SHORT August 09, 2024 11:59 AM documented in this encounter [facility] 08-16-2024 Telephone encounter Note Please call to let the Lashaun know that it is reasonable to reduce Mounjaro for now. I will send a prescription to her pharmacy for 2.5mg weekly. Once the appetite improves, she will likely need to resume 5mg dose. Thank you- Sasha Caldwell APRN.REMOTE SENSING RESEARCH SCIENTIST [facility] 08-15-2024 Telephone encounter Note Images from the original note were not included. [facility] 08-10-2024 Telephone encounter Note This nurse reached out to Lashaun- She reports patient had a fall and hit her head- had a craniotomy- broke her femur- not walking at this time. Patient is now in senior living for retirement. She reports the nurse has reported to her that patients blood sugars have been low- typically in 70-90 range, highest one in the past month and 1/2 was 140. Patient is not eating as much as she was before- food is more regulated than it was in assisted living. Patient is also losing more weight than they had wanted. Nurse at senior living is requesting review- possibly lower dose of mounjaro. Lashaun reports she picks up this medication and takes it to the [facility]. She uses [facility]- phone number [phone]. This nurse requested a log of recent blood sugars to be faxed to us from [facility]. senior living requests a new order be faxed to [facility]- fax number to be provided via [employer] message. [facility] 08-09-2024 Telephone encounter Note Patients daughter Lashaun calling in asking for a call back to discuss lowering the dosage of patients medication. Her food has decreased and her sugar reading are lower and asking to lower tirzepatide (MOUNJARO) 5 mg/0.5 mL pen injector Please call Lashaun back [phone] Thank you Velvet SHORT August 09, 2024 11:59 AM [facility] 08-03-2024 History of Present illness Narrative NEUROSURGERY POST-OP NOTE Tika Jones MD Date of visit: August 03, 2024 Patient Name: Ms.Jacqueline Kayleigh Davenport Date of : 1940 Current Age: [age] year old Sex: female MRN/E# [id number] Last Office Visit: 08/01/2024 CLINICAL SUMMARY: KPS: Karnofsky Performance Status Scale: 50 - Requires considerable assistance from others and frequent medical care. SURGERY: Right decompressive Craniotomy for evacuation of hematoma. Right subtemporal decompression SURGERY DATE: 05/06/2024 Pre-Surgical Symptoms: SDH PATHOLOGY: n/a Current Steroids dose: n/a Current AED Dose: Keppra 500 mg BID Last Chemo: n/a Anticoagulant/Antiplatelet: Eliquis ( hold until her 2 week follow-up) HPI: 84-year-old female with past medical history of mild dementia, DM II, previous PE, on Eliquis presented to [facility] as a trauma from [facility] with a right acute subdural hematoma with mass effect following a fall at an assisted living facility. CT scan of the brain completed at [facility] showed worsening SDH with 7mm right to left MLS and 1.7mm of subdural hematoma. It was recommended for patient to follow-up in 8 weeks with [facility]. Sutures to be removed on post-op day 14 at the SNF if healed. Patient presents to the office today for their 8 week follow up. She is wheelchair bound and unable to stand on her own. She is currently residing at [facility]. She presents today with her daughter( Hardy Ochoa). Patient reports headaches more frontal region. She denies blurred vision or nausea. The daughter reports she feels that her mom is declining cognitively since May. She states she has not been able to complete physical therapy as she is not able to stand on her own. No recent falls reported. Endorse weakness. PAIN EVALUATION No data found in the last 1 encounters. Current Outpatient Medications Medication Sig Dispense Refill tirzepatide (MOUNJARO) 5 mg/0.5 mL pen injector Inject 5 mg subcutaneously one time a week. 2 mL 5 acetaminophen (TYLENOL) 325 mg tablet Take 3 tablets by mouth every 8 hours. metoprolol tartrate, short acting, (LOPRESSOR) 25 mg tablet Take 0.5 tablets by mouth every 6 hours. senna-docusate (SENNA-S) 8.6-50 mg per tablet Take 1 tablet by mouth two times a day. polyethylene glycol 3350 17 gram packet Take 1 Packet by mouth once daily. Dissolve dose in 4 - 8 ounces of liquid and take as directed. melatonin 3 mg tablet Take 2 tablets by mouth daily at bedtime. lactobacillus acidophilus 100 mg (1 billion cell) cap(s) Take 1 capsule by mouth once daily. Biotinex ([facility] probiotic) Calcium-Cholecalciferol, D3, (CALCIUM 600 + D,3,) 600 mg-5 mcg (200 unit) cap Take 2 tablets by mouth every morning. therapeutic multivitamin-minerals (THERA-M PLUS) 9 mg iron-400 mcg tablet Take 1 tablet by mouth once daily. calcium carbonate (TUMS) 500 mg chew Take 500 mg by mouth every 4 hours as needed. loratadine (CLARITIN) 10 mg tablet Take 10 mg by mouth once daily. magnesium citrate solution Take 300 mL by mouth once daily as needed. cyanocobalamin 1,000 mcg/mL Inject 1 mL intramuscularly once every month. To be administered at [facility] by nurse 1 mL 12 oxybutynin ER (DITROPAN XL) 10 mg 24 hr tablet Take 1 tablet by mouth once daily. 90 tablet 1 DULoxetine (CYMBALTA) 20 mg capsule Take 2 capsules by mouth once daily. 180 capsule 1 fluconazole (DIFLUCAN) 200 mg tablet TAKE 1 TABLET 3x per week 32 tablet 3 calcitriol (ROCALTROL) 0.5 mcg capsule Take 1 capsule by mouth once daily. 90 capsule 4 clobetasol (TEMOVATE) 0.05 % cream 3x per day for 2 weeks and then twice daily thereafter 60 g 4 ferrous sulfate 325 mg (65 mg iron) tablet Take 1 tablet by mouth once daily. 30 tablet 0 ascorbic acid(VITAMIN C 500 MG TAB) Take 500 mg by mouth every evening. 0 0 No current facility-administered medications for this visit. REVIEW OF SYSTEMS Review of Systems Constitutional: Negative for chills, fatigue and fever. HENT: Negative for ear pain, hearing loss, postnasal drip, sore throat, tinnitus, trouble swallowing and voice change. Eyes: Negative for photophobia and visual disturbance. Respiratory: Negative for cough, choking and shortness of breath. Cardiovascular: Negative for chest pain, palpitations and leg swelling. Gastrointestinal: Negative for constipation, diarrhea, nausea and vomiting. Endocrine: Negative for cold intolerance and heat intolerance. Genitourinary: Negative for decreased urine volume, difficulty urinating, dysuria, frequency, hematuria and urgency. Musculoskeletal: Positive for gait problem. Negative for arthralgias, back pain, myalgias, neck pain and neck stiffness. Skin: Negative for rash and wound. Allergic/Immunologic: Negative for immunocompromised state. Neurological: Positive for weakness and headaches. Negative for dizziness, tremors, seizures, syncope, facial asymmetry, speech difficulty, light-headedness and numbness. Psychiatric/Behavioral: Positive for confusion. Negative for agitation and behavioral problems. The patient is not nervous/anxious. OBJECTIVE: BP 103/56 Pulse 71 Resp 18 Ht 5' 5 (1.65m) SpO2 97% PHYSICAL EXAM: Patient is pleasantly confused Able to follow commands in all extremities Antigravity in all extremities, about a 4 out of 5 in her left lower extremity due to her femur fracture status post fixation Has some noticeable right temporal wasting secondary from postoperative changes Incision: Healed DATA REVIEW: IMAGING STUDIES: CT Brain 08/02/2024 : 1. Atrophy and remote appearing small vessel white matter chronic ischemic/neurodegenerative changes with areas of encephalomalacia right temporal lobe. 2. No definite evidence of acute infarction, mass lesion, nor hemorrhage with moderate intracranial vascular calcification. Assessment/Plan: 84-year-old female who is about 3 months out from a right sided decompressive hemicraniotomy for evacuation of acute on chronic hematoma with significant mass effect. Patient also suffered right left-sided femur fracture requiring internal fixation. She was nonweightbearing for some time. She was ultimately discharged to group home facility. Of note the patient has baseline mild dementia. The daughter states that when she got to the group home facility in early May she was back to close to her baseline mentation however over the last few weeks she is taken a significant decline from a mentation cognitive perspective. Of note, she has had recurrent UTIs which I think may be playing a factor. Her CT scan that was done yesterday shows complete resolution of her right subdural hematoma. I did residential substance abuse counselor her that the recovery of traumatic brain injury can take up to a year to solidify baseline. I do think that her baseline dementia and other medical comorbidities may play a factor into her recovery. All questions were answered. Will have the patient follow back on a as needed basis. Attribution: The following portions of the patient's history were reviewed, confirmed, and updated as necessary: allergies, current medications, past family history, past medical history, past social history, past surgical history, problem list, HPI, and ROS obtained by others. Some elements may be copied from a previous office note and have been reviewed/updated where appropriate. All portions reflect current medical decision making from today. The clinical and radiographic findings as well as the risks, benefits and alternatives of treatment have been reviewed in detail with the patient. Advised to call the office if symptoms worsen or new symptoms develop.Patient expressed understanding and is in agreement with plan. Tika Jones MD Department of Neurosurgery [facility] This note was partially generated using [employer] voice recognition system, and there may be some incorrect words, spellings, and punctuation that were not noted in checking the note before saving. documented in this encounter [facility] 08-03-2024 Note [facility] 08-01-2024 Telephone encounter Note [facility] from [facility] called [phone] called to inform that the needed the prior authorization number for patients CT scan. Provided referral # and authorization # as well. Notified Dr. Jones and primary nurse Sarika. Monika Fried RN [facility] 08-01-2024 Miscellaneous Notes [facility] from [facility] called [phone] called to inform that the needed the prior authorization number for patients CT scan. Provided referral # and authorization # as well. Notified Dr. Jones and primary nurse Sarika. Monika Fried RN documented in this encounter [facility] 07-04-2024 Telephone encounter Note I called [facility] and let her know that per MTM patient is now WBAT. Glendy Fry [facility] 07-04-2024 Miscellaneous Notes I called [facility] and let her know that per MTM patient is now WBAT. Glendy Fry [facility]-called to see if we rec'd the films yet. I let her know we did not but I will call Sher Stapleton and have them emailed in. Glendy Fry nurse Ivelisse, called and the patient's daughter is requesting the x-ray to be done sooner more like the beginning of July to see if there have been any changes. I will check with the doctor and call them back. Glendy Fry X-rays were good, rebekah were able to be removed and [facility] will call with any further questions. Next x-ray to be done in 8 weeks. Glendy Fry I spoke with [facility] @ the [facility] and x-rays were completed. I called [facility] Stapleton and they emailed them. I forwarded to doctor to review. They also want to remove rebekah and they will email a pic for review. Glendy Fry 2 view L femur x-rays to be done on 05-29 with films to view Glendy Fry documented in this encounter [facility] 07-04-2024 Telephone encounter Note [facility]-called to see if we rec'd the films yet. I let her know we did not but I will call Sher Stapleton and have them emailed in. Glendy Fry [facility] 06-20-2024 Telephone encounter Note This Rx was cancelled upon discharge from [facility]~the trauma surgery team on 05/19. Patient should discuss with surgeon re resuming . [facility] Work Phone: 06-20-2024 Miscellaneous Notes This Rx was cancelled upon discharge from [facility]~the trauma surgery team on 05/19. Patient should discuss with surgeon re resuming . Images from the original note were not included. documented in this encounter [facility] 06-20-2024 Telephone encounter Note Images from the original note were not included. [facility] 06-09-2024 Telephone encounter Note nurse Ivelisse, called and the patient's daughter is requesting the x-ray to be done sooner more like the beginning of July to see if there have been any changes. I will check with the doctor and call them back. Glendy Fry [facility] 06-01-2024 Telephone encounter Note X-rays were good, rebekah were able to be removed and [facility] will call with any further questions. Next x-ray to be done in 8 weeks. Glendy Fry [facility] 05-30-2024 Telephone encounter Note I spoke with [facility]hi @ the [facility] and x-rays were completed. I called [facility] Stap[facility] and they emailed them. I forwarded to doctor to review. They also want to remove rebekah and they will email a pic for review. Glendy Fry [facility] 05-29-2024 Telephone encounter Note Kathrine from [facility] calling asking for a copy of patient immunizations to be faxed to [phone]. Printed and faxed as requested. [facility] 05-29-2024 Miscellaneous Notes Kathrine from [facility] calling asking for a copy of patient immunizations to be faxed to [phone]. Printed and faxed as requested. documented in this encounter [facility] 05-22-2024 Telephone encounter Note 2 view L femur x-rays to be done on 05-29 with films to view Glendy Fry [facility] 05-22-2024 Telephone encounter Note Faxed November 2023 ov notes to [facility], per Natalya request. Natalya needed ov notes that included medication list and problem list. Reports patient was d/c'd from [facility] to their group home/rehab. Reports patient Dx: subdural hemorrage from a fall, and left knee fracture also from fall. [facility] 05-22-2024 Miscellaneous Notes Faxed November 2023 ov notes to [facility], per Natalya request. Natalya needed ov notes that included medication list and problem list. Reports patient was d/c'd from [facility] to their group home/rehab. Reports patient Dx: subdural hemorrage from a fall, and left knee fracture also from fall. documented in this encounter [facility] 05-22-2024 Telephone encounter Note I spoke with the patient and scheduled an appointment. Glendy Fry [facility] 05-22-2024 Miscellaneous Notes I spoke with the patient and scheduled an appointment. Glendy Fry ----- Message from Natasha Abarca sent at 05/22/2024 10:28 AM EST ----- Regarding: Orthopedics / Hip: RFV Not Found / RFV Not Found In Schd Tool / Post Op Orthopedics / Hip: RFV Not Found / RFV Not Found In Schd Tool / Post Op Patient has been identified by name and Date of (Y/N): y Patient: Miriam Davenport Date of : 1940 Previous Provider Seen: Roro Body Part(s) Identified: L femur Diagnosis/Reason For Visit: post op Reason for the call/escalation: Pamela called from the facitlity the patient is staying at to schedule her an appointment with Dr. Read. They would like a call back to schedule. If reason for call/escalation is discharge from ED/ER or Hospital, which facility was the patient seen at: n Was an appointment scheduled (Y/N): m Person calling if other than patient: Pamela Return call to if other than patient: Pamela or [facility] contact number: [phone] Thank you, Natasha Nelson May 22, 2024 10:28 AM documented in this encounter [facility] 05-22-2024 Telephone encounter Note ----- Message from Natasha Abarca sent at 05/22/2024 10:28 AM EST ----- Regarding: Orthopedics / Hip: RFV Not Found / RFV Not Found In Schd Tool / Post Op Orthopedics / Hip: RFV Not Found / RFV Not Found In Schd Tool / Post Op Patient has been identified by name and Date of (Y/N): y Patient: Miriam Davenport Date of : 1940 Previous Provider Seen: Roro Body Part(s) Identified: L femur Diagnosis/Reason For Visit: post op Reason for the call/escalation: Pamela called from the facitlity the patient is staying at to schedule her an appointment with Dr. Read. They would like a call back to schedule. If reason for call/escalation is discharge from ED/ER or Hospital, which facility was the patient seen at: n Was an appointment scheduled (Y/N): m Person calling if other than patient: Pamela Return call to if other than patient: Pamela or [facility] contact number: [phone] Thank you, Natasha Atkinsonyudi May 22, 2024 10:[address] [facility] 05-19-2024 Note [facility] 05-18-2024 Note [facility] 05-18-2024 Note [facility] 05-18-2024 Note [facility] 05-17-2024 Note [facility] 05-17-2024 Note [facility] 05-16-2024 Note [facility] 05-16-2024 Note [facility] 05-16-2024 Note [facility] 05-15-2024 Note [facility] 05-15-2024 Note [facility] 05-15-2024 Note [facility] 05-14-2024 Note [facility] 05-14-2024 Note [facility] 05-14-2024 Note [facility] 05-13-2024 Note [facility] 05-13-2024 Note [facility] 05-13-2024 Note HNO ID: [id number] Author: NOTE, INTERFACE, ? Service: ? Author Type: ? Type: Progress Notes Filed: 05/18/2024 16:04 Note Text: Epic Scheduled Downtime: 05/13/2024 1:00:00 AM to 05/13/2024 2:52:17 AM [facility] 05-12-2024 Note [facility] 05-12-2024 Note [facility] 05-12-2024 Note [facility] 05-11-2024 Note [facility] 05[facility]11-2024 Note [facility] 12-12-2024 Note [facility] 05-11-2024 Note [facility] 05-11-2024 Note [facility] 05-11-2024 Note [facility] 05-11-2024 Note [facility] 05-10-2024 Note [facility] 05-10-2024 Telephone encounter Note Last read by Shelley Davenport at 1:22 PM on 05/09/2024. Tana Tirado [facility] 05-10-2024 Miscellaneous Notes Last read by Shelley Davenport at 1:22 PM on 05/09/2024. Tana Tirado Images from the original note were not included. Adina Lay APRN.HIMA P [facility] [facility] Pool 6 month follow up with Dr. Walker 1st attempt Sent mc to call office. Jonathon SHORT documented in this encounter [facility] 05-10-2024 Note [facility] 05-10-2024 Note [facility] 05-10-2024 Note [facility] 05-09-2024 Note [facility] 05-09-2024 Note [facility] 05-09-2024 Telephone encounter Note Images from the original note were not included. Adina Lay APRN.CNP P Lkwd Clerical Pool 6 month follow up with Dr. Walker 1st attempt Sent to call office. Jonathon SHORT [facility] 05-09-2024 Note [facility] 05-09-2024 Instructions Adina Lay APRN.REMOTE SENSING RESEARCH SCIENTIST - 05/09/2024 10:36 AM EST Plan: 1) stay on the same dose of Mounjaro 2) return to Dr. Rajiv Walker in 6 months documented in this encounter [facility] 05-09-2024 Note [facility] 05-09-2024 Note [facility] 05-08-2024 Note [facility] 05-08-2024 Note [facility] 05-08-2024 Note [facility] 05-08-2024 Note [facility] 05-07-2024 Note [facility] 05-07-2024 Note [facility] 05-07-2024 Note [facility] 05-07-2024 Note [facility] 05-07-2024 Note [facility] 05-07-2024 Note [facility] 05-07-2024 Note [facility] 05-07-2024 Note [facility] 05-06-2024 Note [facility] 05-06-2024 Note [facility] 05-06-2024 Note [facility] 05-06-2024 Note [facility] 05-06-2024 History of Present illness Narrative Images from the original note were not included. CRITICAL CARE TRANSPORT MEDICAL CONTROL CONSULT NOTE Patient Name: Miriam Davenport Service Date: May 06, 2024 Referring Facility: [facility] Accepting Facility: [facility] REASON FOR TRANSPORT: higher level of critical care services not available at the referring facility REASON FOR CONSULT: management of head bleed CCT MEDICAL CONTROL CONSULT SUMMARY: History, physical exam findings, and available background patient information from CCT Transport Nurse were reviewed at the time of consult. Pertinent additional information was reviewed as follows: CCT transport request log In brief, Miriam Davenport is a 84 year old female with a history, known at time of consult, significant for dementia who presented to [facility] for evaluation of SAH s/p fall. Pt was found down in closet with unknown downtime. CT also reveals acute on chronic SDH. Pt found to have a hip fracture with internal rotation and shortening of the limb. Pt medicated with morphine by OSH. PLAN: Multiple factors considered including: patient history/condition/trajectory/stabi lity, referring and receiving destinations, duration of transport time, medications and therapies available during transport, patient safety, as well as crew capabilities. Orders given for: 1gm keppra IV Plan of care and orders confirmed and read back via telephone with CCT Transport geosciences faculty member, Santos Douglas RN SIGNATURE: Amanda Patterson APRN.HIMA Acute Care Nurse Practitioner Critical Care Transport documented in this encounter [facility] 05-05-2024 History of Present illness Narrative DISTANCE HEALTH VISIT This Team Access Model visit is a virtual encounter. It required patient-provider interaction for the medical decision making as documented below. I have communicated my name and active licensure. The patient's identity and physical location were verified at the time of this visit. Either the patient or their legal food products sales representative has been informed of the risks and benefits of -- and alternatives to -- treatment through a remote evaluation and consents to proceed with the evaluation remotely. Assessment / Plan Assessment: 1) Diabetes type 2, sugar control good on Mounjaro 5 mg/wk. Has been able to get the medication recently, however Kristin is requesting a letter explaining why she should remain on the medication/prequalification 2) Broke hip in December, no lows at home. Checks blood sugars at least once per day, before breakfast or supper, 120x-130s. Currently weaning of hydralazine due to BLE edema Unchanged 1) Depression, doesn't feel she needs treatment at this point, not on any meds, (Dr. Dominguez ordered) 2) Vitamin D deficiency 3) Vitamin B12 deficiency, getting monthly injections, 4) hx Gastric bypass 5) Abdominal wall hernias, had surgery, is in study, doesn't know if it was robotic. Plan: 1) stay on the same dose of Mounjaro 2) return to me or Dr. Rajiv Walker in 6 months Any part of this document that has been added/copied & pasted from other documents has been reviewed for accuracy and updated as appropriate at the time of the patient encounter Medical Decision Making: Problems: Moderate: 1+ chronic illnesses with change Data: Unique test result(s) reviewed: 3+ Risk: Moderate: Drug management Medical Decision Making Level: 4 - Moderate Adina Lay APRN.REMOTE SENSING RESEARCH SCIENTIST (Signed electronically to expedite mailing) Data Review daughter Hardy has iPhone=[employer] ([phone]) History Diabetes type 2, dx 1990 last eye exam November, had cataract surgery, no DM eye disease December 2022, though has early macular degen no hx NC, stroke, claudication, intolerant of statins, niacin and welchol does have hx PE so is on chronic anticoag sugars fasting 110, midday 130s Mounjaro helps with sugars, weight stable. Loves this med, on 5mg once a week. daughter Hardy here with her today. Drug history: *Invokana: yeast inf, has these even without this Rx *Byetta: ineffective *Metformin: diarrhea, has stopped Vitamin D deficiency, on calcium 500 mg (+400U vitD) 2x daily, plus calcitriol 0.5 mcg daily Nephrolithiasis s/p lithotripsy, stent Low back and hip pain s/p injections x 3. 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 Tape [Other] documented in this encounter [facility] 05-03-2024 Telephone encounter Note Appointment needs to be rescheduled with Dr. Raymundo Jensen [facility] 05-03-2024 Miscellaneous Notes Appointment needs to be rescheduled with Dr. Raymundo Jensen documented in this encounter [facility] 04-28-2024 Instructions Guillaume Dominguez MD - 04/28/2024 5:47 PM EST - Reduce Hydralazine dosage to 10 mg twice daily for one week then discontinue. - Monitor blood pressure regularly twice daily while titrating off hydralazine then for 1 month to make sure stable. - Discontinue Hydralazine after one week if blood pressure remains stable. - Start Metoprolol 25 mg twice daily as needed for SBP over 140 or DBP over 100. - Wear mild compression socks to reduce ankle swelling. - Increase water intake to 6-8 cups daily--this includes soup, supplements, juice, noncaffeianted fluids. - Reduce salt intake. - Consume more protein-rich foods. - Next appointment with Dr. Montelongo in May. - Next appointment with therapeutic case manager Adina Lay on May 05. - Schedule an appointment with Dr. Knott for dementia evaluation. documented in this encounter [facility] 04-28-2024 History of Present illness Narrative This note was created using [employer]. Subjective Miriam Davenport is a 84 year old female. Patient presents with: F/U 6 months SUBJECTIVE: Miriam Davenport is a 84 year old year old lady here today for 6 month follow up appointment for review of medical conditions. Miriam Davenport is an 84-year-old female, with a history of early onset dementia, presenting for a 6-month follow-up, accompanied by her daughter, who is providing history on her behalf. Miriam has been experiencing generalized weakness and stiffness following a hip fracture on January 09. She is currently undergoing physical therapy to regain strength. She also reports significant back pain, which has limited her ability to participate fully in physical therapy. She previously received spinal injections from Dr. Montelongo 2 years ago, which provided relief, but her daughter believes a recent fall exacerbated her condition. She has received one injection recently and is scheduled for more. Miriam also reports bilateral ankle edema, which began in the third week of February, approximately 2 months after her hip fracture. The swelling is noted to decrease in the morning but persists throughout the day. She is not wearing compression stockings and is reportedly claustrophobic. She denies any changes in diet, except for a temporary increase in soup consumption, which she believes may have contributed to the swelling. She drinks approximately 24 ounces of water daily and denies any other fluid intake. Miriam has a history of pruritus, which she manages with Claritin and Benadryl at bedtime. She reports a severe reaction to oxycodone, including pruritus and confusion, and requests it be added to her allergy list. She is currently taking hydralazine, which was prescribed postoperatively for elevated blood pressure and anxiety. She has no prior history of hypertension and was previously on metoprolol, which she discontinued 2 years ago with gl accountant approval. She is not currently following with a gl accountant. Miriam has a history of early onset dementia, which her daughter reports has worsened. She was unable to attend a follow-up appointment with Dr. Knott due to her hospitalization. Her daughter expresses concerns about Miriam's ability to sign documents and requests a follow-up with Dr. Knott. Recent lab results from January show an A1c of 6.3, vitamin D level of 61.2, WBC count of 11, Hgb of 11, Hct of 36.7, MCH of 30.2, MCV of 94.8, platelet count of 388, sodium level of 138, potassium level of 3.6, chloride level of 105, CO2 level of 25, BUN of 12, creatinine level of 0.56, and albumin level of 2.7. Lipid panel from July shows HDL of 54, triglycerides of 104, total cholesterol of 165, and LDL of 90. 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 MORBID OBESITY 08/18/2007 Obstructive sleep apnea Sleep study 2003 Occlusion and stenosis of carotid artery without mention of cerebral infarction 03/09/2006 mild stenosis shown on u/s at [facility] u/s repeated 02/02/07 with no change Open fracture of tuft of distal phalanx of finger 05/06/2022 PAC (premature atrial contraction) Pulmonary embolism (HCC) Pure hypercholesterolemia Type II or unspecified type diabetes mellitus with renal manifestations, uncontrolled(250.42) Unspecified glaucoma(365.9) Unspecified pruritic disorder Current Outpatient Medications Medication Sig blood sugar diagnostic (ACCU-CHEK GUIDE TEST STRIPS) test strip 1 Strip three times a day. Use as instructed DX: E11.42 cyanocobalamin 1,000 mcg/mL Inject 1 mL intramuscularly once every month. To be administered at [facility] by nurse apixaban (ELIQUIS) 5 mg tab(s) Take 1 tablet by mouth two times a day. tirzepatide (MOUNJARO) 5 mg/0.5 mL pen injector Inject 5 mg subcutaneously one time a week. oxybutynin ER (DITROPAN XL) 10 mg 24 hr tablet Take 1 tablet by mouth once daily. DULoxetine (CYMBALTA) 20 mg capsule Take 2 capsules by mouth once daily. chlorhexidine (HIBICLENS) 4 % external liquid Wash genitale area once a day for infectious vulvitis fluconazole (DIFLUCAN) 200 mg tablet TAKE 1 TABLET 3x per week Clobetasol Propionate (CLOBEX) 0.05 % sham Shampoo twice a week with therapeutic shampoo for itching hydrocortisone 2.5 % cream Apply twice a day to rash on face, then as needed metoprolol succinate ER (TOPROL XL) 25 mg 24 hr tablet Take 1 tablet by mouth once daily. calcitriol (ROCALTROL) 0.5 mcg capsule Take 1 capsule by mouth once daily. clobetasol (TEMOVATE) 0.05 % cream 3x per day for 2 weeks and then twice daily thereafter Lancets lancets Test blood sugar(s) 3 times daily. Dx: Other DM Code E11.42 Insulin: No clindamycin (CLEOCIN) 300 mg capsule take 2 capsules by mouth 1 hour prior to appointment blood sugar diagnostic (ACCU-CHEK POLY PLUS TEST STRP) test strip Check sugars 3 times daily ondansetron orally disintegrating (ZOFRAN ODT) 4 mg disintegrating tablet Take 1 tablet by mouth every 6 hours as needed for nausea/vomiting. (Patient not taking: Reported on 12/10/2023) ferrous sulfate 325 mg (65 mg iron) [...] Take 1 capsule by mouth once daily. No current facility-administered medications for this visit. Review of Systems Objective BP 117/68 Pulse 93 Temp 36.7 C (98 F) Resp 16 Wt 83.6 kg (184 lb 4.9 oz) SpO2 98% BMI 30.67 kg/m Last 5 Encounter Wt Readings: Date: Wt: 04/28/2024 83.6 kg (184 lb 4.9 oz) 03/10/2024 83.2 kg (183 lb 8 oz) 01/10/2024 89.8 kg (197 lb 15.6 oz) 12/24/2023 90.7 kg (200 lb) 12/10/2023 90.6 kg (199 lb 12.8 oz) No waist measurement recorded Estimated body mass index is 30.67 kg/m as calculated from the following: Height as of 10/11/23: 165.1 cm (5' 5). Weight as of this encounter: 83.6 kg (184 lb 4.9 oz). Last 5 Encounter BP Readings: Date: BP: 04/28/2024 117/68 03/10/2024 129/57 01/10/2024 113/76 12/24/2023 124/70 12/10/2023 118/68 Physical Exam Constitutional: Appearance: Normal appearance. HENT: [...] perception normal. Mood and Affect: Mood normal. Speech: Speech normal. Behavior: Behavior normal. Thought Content: Thought content normal. Judgment: Judgment normal. Assessment and Plan # Pruritic condition (L29.9) - Managed with Claritin and Benadryl at bedtime. - Discussed potential use of Shaina for additional relief. # Anemia, unspecified type (D64.9) - Mild anemia noted in January labs: Hemoglobin 11 g/dL, Hematocrit 36.7%. - Ordered CBC to reassess anemia status. # Type 2 diabetes mellitus with peripheral neuropathy (HCC) (E11.42) - A1c was 6.3% in January. - Follow-up with therapeutic case manager Adina Lay on May 05. # Vitamin D deficiency (E55.9) - Vitamin D level was 61.2 ng/mL in January. - Ordered repeat Vitamin D level. # Vitamin B12 deficiency (E53.8) # Pedal edema (R60.0) - Onset noted in the third week of February. - Discussed potential causes including low albumin levels and hydralazine use. - Ordered CMP to assess albumin levels. - Advised increasing fluid intake to 64 ounces daily. - Recommended wearing mild compression socks. - Initiated weaning off hydralazine: Decrease to 10 mg BID for one week, then discontinue if blood pressure remains stable. - Prescribed metoprolol 25 mg daily for blood pressure management. # Dementia, unspecified dementia severity, unspecified dementia type, unspecified whether behavioral, psychotic, or mood disturbance or anxiety (HCC) (F03.90) - Symptoms reportedly worsening. - Referral to Dr. Knott for geriatric evaluation. I spent a total of 35 minutes on the date of the service which included preparing to see the patient, [id number] patient care, completing clinical documentation, obtaining and/or reviewing separately obtained history, performing a medically appropriate examination, and counseling and educating the patient/family/caregiver. Guillaume Dominguez MD documented in this encounter [facility] 04-14-2024 Telephone encounter Note Received voicemail 04-14-24 at 12:04 PM. Hi my name is Hardy. I'm calling in regard to Miriam Davenport, 1940. She had an injection [address] Montelongo and she needs to get another back injection. I don't know what else you need. I am her daughter. Please call me back and hopefully get something scheduled soon. My phone number is [phone]. I am her medical proxy. Thank you. Left L4-5 lumbar transforaminal epidural steroid injection 03-30-[address] Montelongo Last office visit with Nic Garcia APRN.CNP 03-10-24 Call to patient's daughter. Started at 9/10 pain level prior to injection, the injection has taken the pain down to a 5/10, but now within the past week it has gone back up to 7/10. She is able to walk, but pain is increasingly going up. Spoke to HAZEL Hough who recommended patient seeing Dr. Montelongo versus Oralia Garcia APRN.REMOTE SENSING RESEARCH SCIENTIST. Will have PSS reach out to daughter Hardy to schedule. Informed daughter of OTC remedies patient can use as long as there are no other contraindications including tylenol/ibuprofen, lidocaine/voltaren gel, ice/heat, rest. She verbalized understanding. [facility] 04-14-2024 Miscellaneous Notes Received voicemail 04-14-24 at 12:04 PM. Hi my name is Hardy. I'm calling in regard to Miriam Davenport, 1940. She had an injection [address] Montelongo and she needs to get another back injection. I don't know what else you need. I am her daughter. Please call me back and hopefully get something scheduled soon. My phone number is [phone]. I am her medical proxy. Thank you. Left L4-5 lumbar transforaminal epidural steroid injection 03-30-[address] Montelongo Last office visit with Nic Garcia APRN.CNP 03-10-24 Call to patient's daughter. Started at 9/10 pain level prior to injection, the injection has taken the pain down to a 5/10, but now within the past week it has gone back up to 7/10. She is able to walk, but pain is increasingly going up. Spoke to HAZEL Hough who recommended patient seeing Dr. Montelongo versus Oralia Garcia APRN.REMOTE SENSING RESEARCH SCIENTIST. Will have PSS reach out to daughter Hardy to schedule. Informed daughter of OTC remedies patient can use as long as there are no other contraindications including tylenol/ibuprofen, lidocaine/voltaren gel, ice/heat, rest. She verbalized understanding. documented in this encounter [facility] 03-10-2024 Telephone encounter Note Procedure: Left L4-5 TFESI Procedure Date: 03/30/2024 Cardiac Clearance: Eliquis Cardiac Clearance letter generated and faxed to patient's PCP, Dr. Guillaume Dominguez, for approval to hold Eliquis for two days prior to injection procedure. Fax confirmation received. Awaiting determination. [facility] 03-10-2024 Miscellaneous Notes Procedure: Left L4-5 TFESI Procedure Date: 03/30/2024 Cardiac Clearance: Eliquis Cardiac Clearance letter generated and faxed to patient's PCP, Dr. Guillaume Dominguez, for approval to hold Eliquis for two days prior to injection procedure. Fax confirmation received. Awaiting determination. documented in this encounter [facility] 03-10-2024 History of Present illness Narrative Subjective [facility]. Since the last visit, Miriam Davenport states the pain has been improved with the injection. However she fell on 01/10 and aggravated her lower back. Current pain intensity is 9 on a scale of 0-10. Pain located in lower back and left leg. Pain described as aching, sharp, and shooting Symptoms interfere with physical activity, sleeping, sitting, bathing, driving, cooking, household cleaning, lifting, and social activities. Pain is exacerbated by sitting. Pain is mitigated by lays flat and does not move. The patient is overall improved with the injections by 100%. The injection lasted for 1 year. Patient Entered Questionnaires PROMIS Score Percentiles 05/21/2015 09/29/2022 PROMIS Global Health Scale Physical Health Percentile 22* 4 Mental Health Percentile 53 26* 09/29/2022 Physical Health Physical Function Percentile 8 Percentiles provide an indication of how the patient's score ranks in relation to the general population. Higher percentile rankings indicate better function/quality of life. 50th percentile is the average of the general population and indicates half of respondents had a worse score. > 31st percentile is within normal limits or better * < 31st percentile is at least SD worse than population, which may be clinically relevant < 16th percentile is at least 1 SD worse than population and warrants attention Review of Systems Constitutional: (-) Weight Gain (-) Weight Loss (-) Fatigue Cardiovascular: (-) hx heart surgery (-) Pacemaker Respiratory: (-) Shortness of Breath (-) Cough (-) Snoring Gastrointestinal: (-) Incontinence (-) Diarrhea (-) Constipation (-) Nausea/Vomiting Endocrine: (-) Thyroid Disorder (-) Diabetes Hematologic: (-) Prolonged Bleeding (-) Easy Bruising Genitourinary: (-) Incontinence (-) Frequency (-) Urinary Urgency Skin: (-) Open sores/wound Neurologic: (-) Headache (-) Double Vision Psychiatric: (-) Depression (-) Anxiety (-) Personal History of Alcohol or Substance Abuse (-) Family History of Alcohol or Substance Abuse Chief Complaint Patient presents with: Follow Up Physical Examination There were no vitals taken for this visit. General:well appearing and alert Skin: Skin color, texture, turgor normal, no rashes or lesions HEENT: normal Cardiovascular: Regular, rate and rhythm Lungs: Normal respiratory rate and rhythm, unlabored on room air Musculoskeletal: Back: Tenderness on palpation over the lumbar spine. , Tenderness over the left lumbar paraspinal muscles, neg facet loading Extremities: left hip pain Neurological: Mental Status: alert Gait: Presents in a wheelchair Trigger points: lumbosacral spine muscles. Assessment Assessment : Patient presents for a follow-up visit. She is accompanied with her daughter Has a history of low back pain that radiates down the left lower extremity Patient had a left L5 4-5 transforaminal injection on 12-29-2022 with 100% improvement that lasted for a year Reports that she fell on January 11, 2024 and broke her left hip. She had surgery the next day. Her back pain has returned Encounter Diagnosis ICD-10-CM 1. Lumbar spondylosis M47.816 2. Radiculopathy, lumbar region M54.16 09/29/2022 PROMIS CAT Pain Interference PROMIS Adult Short Form-Global Health Score (Mental) 43.5 (Good) OARRS Report: Reviewed: The patient's OARRS report was reviewed and is consistent with the reported medication use. Plan Injection history was reviewed. Medication use and compliance were reviewed. 1. Reviewed procedural instructions. Handout given 2. Occasional prescribed today 3. Interventional procedure options discussed. Ordered and scheduled repeat left L4-5 transforaminal injection 4) F/U in 3 months The level of medical decision making for this encounter was low level. I spent a total of 25 minutes on the date of the service which included preparing to see the patient, [id number] patient care, completing clinical documentation, performing a medically appropriate examination, ordering medications, tests, or procedures, and care coordination (not separately reported). 1. This document has been created with the use of voice recognition technology. It may contain inaccuracies: (e.g. misspellings, inaccurate syntax or word sense) that have escaped review. 2. The physician, nursing staff and medical assistants are a [...] at the discretion of your PCP/referring physician. The above plan and management options were discussed at length with patient. Patient is in agreement with the above and verbalized understanding. Oralia Garcia APRN, HIMA March 10, 2024 documented in this encounter [facility] 02-01-2024 Note [facility] 01-13-2024 Miscellaneous Notes Daughter Hardy called to get a list of pt's allergies to [facility]. Pt broke her hip on Wednesday01-10-24 and had surgery on 01-11-24. Pt now in TCU at [facility]. Pt was given Hydrocodone and daughter reports pt is allergic to this. Pt is itching and daughter is upset because they never contacted her. I called TCU and got their fax and faxed over the allergy list. Faxed the snapshot over to [phone], attn: Martine. Marquita Mclaughlin LPN documented in this encounter [facility] 01-13-2024 Telephone encounter Note Daughter Hardy called to get a list of pt's allergies to [facility]. Pt broke her hip on Wednesday01-10-24 and had surgery on 01-11-24. Pt now in TCU at [facility]. Pt was given Hydrocodone and daughter reports pt is allergic to this. Pt is itching and daughter is upset because they never contacted her. I called TCU and got their fax and faxed over the allergy list. Faxed the snapshot over to [phone], attn: Martine. Marquita Mclaughlin LPN [facility] 01-12-2024 Note [facility] 01-12-2024 Note [facility] 01-10-2024 History of Present illness Narrative Patient presents with: UTI 83 year old female presents with 2 week(s) of dysuria, frequency, and urgency. PMH:rare. Review of Systems Constitutional: Positive for malaise/fatigue. Genitourinary: Positive for dysuria, frequency and urgency. Neurological: Positive for headaches. Physical Exam Vitals and nursing note reviewed. Constitutional: Appearance: Normal appearance. HENT: Head: Normocephalic and atraumatic. Eyes: Conjunctiva/sclera: Conjunctivae normal. Cardiovascular: Rate and Rhythm: Normal rate. Pulmonary: Effort: Pulmonary effort is normal. Skin: General: Skin is warm and dry. Neurological: Mental Status: She is alert. Mental status is at baseline. BP 113/76 Pulse 90 Resp 16 Wt 89.8 kg (197 lb 15.6 oz) BMI 32.94 kg/m ASSESSMENT/PLAN: Uncomplicated UTI 1. UTI symptoms - ICD9: 788.99, ICD10: R39.9 Her daughter Hardy on audio on phone during visit. Miriam Davenport did symptoms for 2 weeks. Notes that she voided just previous to her appointment. She has to return for lab work tomorrow. Recommend completing lab work including urinalysis with reflex culture tomorrow. Start Macrobid. - UA DIP B/O - URINE CULTURE - URINALYSIS WITH MICROSCOPIC, REFLEX CULTURE Comfort Patterson APRN.CNS Medical Decision Making: Problems: Low: Acute, uncomplicated illness or injury Data: Unique test(s) ordered: 2 Risk: Moderate: Drug management Medical Decision Making Level: 3 - Low documented in this encounter [facility] 01-10-2024 Instructions Comfort Patterson APRN.VENTILATION MECHANIC - 01/10/2024 11:56 AM EDT Images from the original note were not included. Urinary Problem-When to Seek Help? Symptoms of a urinary problem may lead to a bladder infection. Women are at greater risk of a urinary tract infection than are men. Most urinary tract infections in women are caused by bacteria and involve the lower urinary tract including the bladder and urethra. Symptoms: Pain or burning when passing urine, urgency, frequency, blood in the urine, difficult emptying your bladder, and lower abdominal fullness or pressure. Common Causes: Sexual intercourse, menopause, constipation, uncontrolled diabetes, dehydration and feminine products such as tampons, and kidney stones. When to Get Help: Seek medical attention if you get frequent bladder infections, urinary concerns such as leakage, blood in the urine or frequent need to urinate. You may be recommended to get help from a specialist, such as a urologist. Diagnosis & Treatment: Lab testing may include: urinalysis, and urine culture that can be collected in the lab or walk-in clinic. Most bladder infections can easily be treated. A physician, nurse practitioner or physician chiropractic assistant may treat with a short course of an antibiotic. Delaying treatment can lead to worsening symptoms, like a kidney infection. Self-Care: Avoid a full bladder, bubble baths, bath oils, food and beverages that may irritate the bladder such as caffeine. Avoid spermicide foam and diaphragms Void before and after sexual intercourse Wipe front to back after using the bathroom. Stay hydrated Stop Smoking Follow-up Care: Follow up testing is not needed in healthy young women if symptoms resolve. documented in this encounter [facility] 12-27-2023 History of Present illness Narrative Radiology Service Progress Note PATIENT NAME: Miriam Davenport DATE OF SERVICE: December 27, 2023 TIME: 1:34 PM PATIENT IDENTITY VERIFICATION COMPLETED USING TWO [...] place to prevent falls during this visit? Offered Assistance with Transfers/Clothing, Instructed Patient to Remain Seated (Not on Exam Table) Until Exam, and Increased Observations by Caregivers PATIENT GENDER DATA: Female. status: : No status: NO. PATIENT RELEVANT IMPLANT DATA REVIEWED: Yes PATIENT PRESENTS WITH AN IMPLANTABLE OR ATTACHED ENVIRONMENTAL SERVICES FLOOR TECH: No RADIOLOGY DEPARTMENT: General X-ray: Exam(s) Completed: Lower Extremity X-Ray(s): Knee, AP / LAT Right PERIPHERAL IV DATA: Not applicable SIGNED BY: RT Luis(R) December 27, 2023 1:34 PM documented in this encounter [facility] 12-24-2023 History of Present illness Narrative Images from the original note were not included. SUBJECTIVE Miriam Davenport is a 83 year old female here today for acute concern. Chief Complaint Patient presents with: Pain: bilateral knee for about 2 weeks denies any recent injury HPI Miriam Davenport is a 83 year old female. She is an established patient of Guillaume Dominguez MD. Here today acutely for right knee pain. Onset was 2 weeks ago. She was out for a busy day and at the end of the day she noticed right knee soreness to the inner knee. No redness, no edema, no increased warmth. It has still caused her aching pain. Pain occurs with activity. Resolves with rest. Prior knee replacements. Her medications were reviewed today and her list is now up to date. Medications Current Outpatient Medications Medication Sig cyanocobalamin 1,000 mcg/mL Inject 1 mL intramuscularly once every month. To be administered at [facility] by nurse apixaban (ELIQUIS) 5 mg tab(s) Take 1 tablet by mouth two times a day. tirzepatide (MOUNJARO) 5 mg/0.5 mL pen injector Inject 5 mg subcutaneously one time a week. oxybutynin ER (DITROPAN XL) 10 mg 24 hr tablet Take 1 tablet by mouth once daily. DULoxetine (CYMBALTA) 20 mg capsule Take 2 capsules by mouth once daily. chlorhexidine (HIBICLENS) 4 % external liquid Wash genitale area once a day for infectious vulvitis fluconazole (DIFLUCAN) 200 mg tablet TAKE 1 TABLET 3x per week Clobetasol Propionate (CLOBEX) 0.05 % sham Shampoo twice a week with therapeutic shampoo for itching hydrocortisone 2.5 % cream Apply twice a day to rash on face, then as needed calcitriol (ROCALTROL) 0.5 mcg capsule Take 1 capsule by mouth once daily. clobetasol (TEMOVATE) 0.05 % cream 3x per day for 2 weeks and then twice daily thereafter clindamycin (CLEOCIN) 300 mg capsule take 2 capsules by mouth 1 hour prior to appointment ferrous sulfate 325 mg (65 mg iron) [...] Take 1 capsule by mouth once daily. traMADol (ULTRAM) 50 mg tablet Take 1 tablet by mouth two times a day as needed for pain for up to 7 days. blood sugar diagnostic (ACCU-CHEK GUIDE TEST STRIPS) test strip 1 Strip three times a day. Use as instructed DX: E11.42 metoprolol succinate ER (TOPROL XL) 25 mg 24 hr tablet Take 1 tablet by mouth once daily. (Patient not taking: Reported on 10/29/2023) Lancets lancets Test blood sugar(s) 3 times daily. Dx: Other DM Code E11.42 Insulin: No blood sugar diagnostic (ACCU-CHEK POLY PLUS TEST STRP) test strip Check sugars 3 times daily ondansetron orally disintegrating (ZOFRAN ODT) 4 mg disintegrating tablet Take 1 tablet by mouth every 6 hours as needed for nausea/vomiting. (Patient not taking: Reported on 12/10/2023) COMPOUNDED PRESCRIPTION ONE TOUCH ULTRA 2 TEST [...] not suppose to take it Crestor [Rosuvastat* Eggs [Egg] Diarrhea Not true allergy Erythromycin Myalgia Etodolac Contraindication-Medical Surgical Was told never to take NSAID due to bypass surgery. She also developed severe pain after taking Etodolac that was excruciating Lipitor [Atorvastat* Niacin Unknown Niaspan [Niacin (An* Nsaids (Non-Steroid* Intolerance Was told to avoid all NSAID's due to bypass surgery Penicillins Rash Pravachol [Pravasta* Sulfa (Sulfonamide * Rash Tape [Adhesive Tape* Itching Zetia [Ezetimibe] Zocor [Simvastatin] ACTIVE PROBLEM LIST Class 1 Obesity Due to Excess Calories With Serious Comorbidity and Body Mass Index (Bmi) of 34.0 to 34.9 in Adult - 07/09/2023 Obesity, Class II, Bmi 35-39.9 - 02/02/2023 [...] Pain - 04/09/2015 Neck Pain - 04/09/2015 Uncontrolled Type 2 Diabetes Mellitus With Hyperglycemia, Without Long-Term Current Use of Insulin (Hcc) - 10/16/2014 Atypical Chest Pain - [...] 08/23/2009 Comment: Bx with squamous hyperplasia per [facility] outside facility Apr 1997 Intervertebral Cervical Disc Disorder With Myelopathy, 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, Lumbar Region - 04/11/2009 Other and 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 Osteopenia - 04/20/2008 Comment: 2012 t score -1.7 at [facility] Contact Dermatitis and Other Eczema, Due to Unspecified Cause - 12/07/2007 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 Anxiety State - 07/28/2007 Pernicious Anemia - 04/13/2007 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 - 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 Eating Disorder, Unspecified - 03/29/2007 Occlusion and Stenosis of Carotid Artery Without Mention of Cerebral Infarction - 03/09/2006 Comment: mild stenosis shown on u/s at [facility] u/s repeated 02/02/07 with no change Calculus of Gallbladder Without Mention of Cholecystitis Or Obstruction - 04/09/2005 Comment: No evidence obstruction on HIDA scan 03/04 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 Cardiovascular: Negative. Musculoskeletal: Positive for arthralgias. Negative for joint swelling. OBJECTIVE BP 124/70 Pulse 80 Resp 20 Wt 200 lb (90.7kg) Physical Exam Vitals and nursing note reviewed. [...] Vascular: No JVD. Trachea: Trachea normal. Cardiovascular: Pulses: Normal pulses. Pulmonary: Effort: Pulmonary effort is normal. No accessory muscle usage, prolonged expiration or respiratory distress. Musculoskeletal: Cervical back: Neck supple. Right knee: No swelling, deformity, effusion, erythema, ecchymosis or lacerations. Decreased range of motion. Tenderness present over the medial joint line. No MCL tenderness. Legs: Comments: Tenderness to highlighted area Skin: General: Skin is warm and dry. [...] memory normal. Judgment: Judgment normal. ASSESSMENT/PLAN: 1. Acute pain of right knee - ICD9: 719.46, ICD10: M25.561 Check xray, if no significant issues or concerns with prior hardware we could consider joint injection. Short term script for tramadol given her prior gastric surgery. Tylenol PRN okay too and can ice, compress, elevate too. - XR KNEE LIMITED 2V AP/LAT RIGHT - TRAMADOL 50 MG TABLET PDMP website checked and validated. All prescriptions have been APPROPRIATELY filled. No suspicious activity was identified. 12/24/2023 by Josefa Caputo APRN.REMOTE SENSING RESEARCH SCIENTIST Although Ultram/tramadol is not a narcotic it does carry the risk of addiction if taken over a long period of time. OARRS report reviewed and prescription is reasonable. This medicine can lower the seizure threshold and if patient had any history of seizures or seizure like activity which was not shared with provider today, they should not take this medicine. While taking ultram/tramadol patient was instructed to not drive or operate or be in vicinity of heavy machinery. Portions of this note have been entered [...] to improve, for Keep next scheduled appointment.. MINOR Perez documented in this encounter [facility] 12-21-2023 Telephone encounter Note DaughterLashaun, reports patient is out of test strips. The patient has been identified by name and date of : Yes Caregiver verified no other encounters exist for this prescription request: Yes Caregiver confirmed with patient/requestor that no other refills are due, in the near future, with this provider at this time: Yes The last office visit in the department: 12/10/2023 Does the patient have a future office visit with this provider/department: Yes 01/26/2024 Requested Prescriptions Pending Prescriptions Disp Refills blood sugar diagnostic (ACCU-CHEK GUIDE TEST STRIPS) test strip 100 Each 11 Si Strip three times a day. Use as instructed DX: E11.42 Shea Chisholm RN December 21, 2023 1:12 PM [facility] 12-21-2023 Miscellaneous Notes Lashaun Cho, reports patient is out of test strips. The patient has been identified by name and date of : Yes Caregiver verified no other encounters exist for this prescription request: Yes Caregiver confirmed with patient/requestor that no other refills are due, in the near future, with this provider at this time: Yes The last office visit in the department: 12/10/2023 Does the patient have a future office visit with this provider/department: Yes 01/26/2024 Requested Prescriptions Pending Prescriptions Disp Refills blood sugar diagnostic (ACCU-CHEK GUIDE TEST STRIPS) test strip 100 Each 11 Si Strip three times a day. Use as instructed DX: E11.42 Shea Chisholm RN December 21, 2023 1:12 PM documented in this encounter [facility] 12-10-2023 History of Present illness Narrative This note was created using [employer]. Subjective Miriam Davenport is a 83 year old female. Patient presents with: F/U 6 months SUBJECTIVE: Miriam Davenport is a 83 year old year old lady here today for 6 month follow up appointment for review of medical conditions. Doing well at [facility]. Likes their rooms (there with her ). Issues with food. Vegetables always overcooked. Has microwave so can make some food on her own. Patient feels like doing fine on current meds. Does not know her meds--relies on daughter to manage her meds, etc. Ongoing issues with memory. She feels like getting worse. Called daughter so could do conference call with her. Would like to pursue geriatric consultation in [place]. 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 MORBID OBESITY 08/18/2007 Obstructive sleep apnea Sleep study 2003 Occlusion and stenosis of carotid artery without mention of cerebral infarction 03/09/2006 mild stenosis shown on u/s at [facility] u/s repeated 02/02/07 with no change Open fracture of tuft of distal phalanx of finger 05/06/2022 PAC (premature atrial contraction) Pulmonary embolism (HCC) Pure hypercholesterolemia Type II or unspecified type diabetes mellitus with renal manifestations, uncontrolled(250.42) Unspecified glaucoma(365.9) Unspecified pruritic disorder Current Outpatient Medications Medication Sig cyanocobalamin 1,000 mcg/mL Inject 1 mL intramuscularly once every month. To be administered at [facility] by nurse apixaban (ELIQUIS) 5 mg tab(s) Take 1 tablet by mouth two times a day. tirzepatide (MOUNJARO) 5 mg/0.5 mL pen injector Inject 5 mg subcutaneously one time a week. oxybutynin ER (DITROPAN XL) 10 mg 24 hr tablet Take 1 tablet by mouth once daily. DULoxetine (CYMBALTA) 20 mg capsule Take 2 capsules by mouth once daily. chlorhexidine (HIBICLENS) 4 % external liquid Wash genitale area once a day for infectious vulvitis fluconazole (DIFLUCAN) 200 mg tablet TAKE 1 TABLET 3x per week Clobetasol Propionate (CLOBEX) 0.05 % sham Shampoo twice a week with therapeutic shampoo for itching hydrocortisone 2.5 % cream Apply twice a day to rash on face, then as needed calcitriol (ROCALTROL) 0.5 mcg capsule Take 1 capsule by mouth once daily. clobetasol (TEMOVATE) 0.05 % cream 3x per day for 2 weeks and then twice daily thereafter blood sugar diagnostic (ACCU-CHEK GUIDE TEST STRIPS) test strip 1 Strip three times daily. Use as instructed DX: E11.42 Lancets lancets Test blood sugar(s) 3 times daily. Dx: Other DM Code E11.42 Insulin: No clindamycin (CLEOCIN) 300 mg capsule take 2 [...] Take 1 capsule by mouth once daily. semaglutide (OZEMPIC) 0.25 mg or 0.5 mg (2 mg/3 mL) pen Inject 0.5 mg subcutaneously one time a week. (Patient not taking: Reported on 12/10/2023) metoprolol succinate ER (TOPROL XL) 25 mg 24 hr tablet Take 1 tablet by mouth once daily. (Patient not taking: Reported on 10/29/2023) ondansetron orally disintegrating (ZOFRAN ODT) 4 mg disintegrating tablet Take 1 tablet by mouth every 6 hours as needed for nausea/vomiting. (Patient not taking: Reported on 12/10/2023) Current Facility-Administered Medications Medication Dose Route Frequency cyanocobalamin 1,000 mcg injection 1,000 mcg INTRAMUSCULAR q 1 MONTH perflutren lipid microspheres 1.3 mL in NaCl (PF) 0.9% 10 mL injection (DEFINITY) INTRAVENOUS DIRECTED PRN sodium chloride 0.9 % (flush) 10 mL (BD POSIFLUSH) 10 mL INTRAVENOUS DIRECTED PRN Review of Systems Objective BP 118/68 Pulse 94 Temp 36.7 C (98.1 F) Resp 18 Wt 90.6 kg (199 lb 12.8 oz) SpO2 97% BMI 33.25 kg/m Physical Exam Constitutional: Appearance: Normal appearance. [...] content normal. Judgment: Judgment normal. Last labs: Latest Ref Rng 08/27/2023 WBC 3.70 - 11.00 k/uL 8.38 RBC 3.90 - 5.20 m/uL 4.51 Hemoglobin 11.5 - 15.5 g/dL 12.9 Hematocrit 36.0 - 46.0 % 40.6 MCV 80.0 - 100.0 fL 90.0 MCH 26.0 - 34.0 pg 28.6 MCHC 30.5 - 36.0 g/dL 31.8 RDW-CV 11.5 - 15.0 % 14.6 Platelet Count 150 - 400 k/uL 307 MPV 9.0 - 12.7 fL 11.0 Neut% % 72.7 Abs Neut (ANC) 1.45 - 7.50 k/uL 6.10 Lymph% % 16.1 Abs Lymph 1.00 - 4.00 k/uL 1.35 [place]% % 8.4 Abs [place] <0.87 k/uL 0.70 Eosin% % 1.7 Abs Eosin <0.46 k/uL 0.14 Baso% % 0.6 Abs Baso <0.11 k/uL 0.05 Immature Gran % % 0.5 IMMATURE GRANS (ABS) <0.10 k/uL 0.04 NRBC /100 WBC 0.0 Absolute nRBC <0.01 k/uL <0.01 DTYPE Auto Protein, Total 6.3 - 8.0 g/dL 7.1 Albumin 3.9 - 4.9 g/dL 3.6 (L) Calcium 8.5 - 10.2 mg/dL 9.2 Bilirubin, Total 0.2 - 1.3 mg/dL 0.3 Alkaline Phosphatase 34 - 123 U/L 127 (H) AST 13 - 35 U/L 8 (L) ALT 7 - 38 U/L 8 Glucose 74 - 99 mg/dL 142 (H) BUN 7 - 21 mg/dL 17 Creatinine 0.58 - 0.96 mg/dL 0.59 Sodium 136 - 144 mmol/L 136 Potassium 3.7 - 5.1 mmol/L 3.8 Chloride 97 - 105 mmol/L 102 CO2 22 - 30 mmol/L 24 Anion Gap 9 - 18 mmol/L 10 eGFR >=60 mL/min/1.73m 91 Total Cholesterol, Nonfasting <200 mg/dL 165 Triglycerides, Nonfasting <150 mg/dL 104 HDL Cholesterol, Nonfasting >39 mg/dL 54 LDL Cholesterol, Nonfasting <100 mg/dL 90 Non HDL Cholesterol, Nonfasting <130 mg/dL 111 VLDL Cholesterol, Nonfasting <30 mg/dL 21 Total Chol/HDL Ratio, Nonfasting <5.10 mg/dL 3.06 LDL/HDL Ratio, Nonfasting <2.54 mg/dL 1.67 Iron 41 - 186 ug/dL 33 (L) TIBC 232 - 386 ug/dL 278 Transferrin Saturation 15.0 - 57.0 % 11.9 (L) Hemoglobin A1C 4.3 - 5.6 % 7.3 (H) Estimated Average Glucose mg/dL 163 TSH 0.270 - 4.200 mIU/L 1.490 Vitamin D 25 Hydroxy 31.0 - 80.0 ng/mL 50.0 Ferritin 14.7 - 205.1 ng/mL 270.0 (H) Vitamin B12 232 - 1,245 pg/mL 496 Legend: (L) Low (H) High Hemoglobin A1C (%) Date Value 08/27/2023 7.3 05/18/2023 8.5 09/08/2022 8.0 04/27/2022 7.3 01/16/2022 7.3 10/07/2020 7.7 06/28/2020 7.6 02/16/2020 7.6 10/12/2019 7.8 03/17/2019 7.5 Hemoglobin A1C (POCT) (%) Date Value 12/30/2022 7.0 01/10/2021 7.0 Assessment and Plan Encounter Diagnosis ICD-10-CM 1. Cognitive impairment R41.89 CONSULT TO GERIATRICS Patient says memory is getting worse.Geriatric consult as discussed. Patient wants to stay in [place] 2. Type 2 diabetes mellitus with peripheral neuropathy (HCC) E11.42 HEMOGLOBIN A1C COMPREHENSIVE METABOLIC PANEL Doing well with glycemic control. Stay on same meds. Able to get mounjaro now. Continue prseent management 3. Class 1 obesity due to excess calories with body mass index (BMI) of 33.0 to 33.9 in adult, unspecified whether serious comorbidity present E66.09 Z68.33 Gradual intentional weight loss noted. Continue to monitor. Stay on same meds for control of DM, etc. 4. Mixed hyperlipidemia E78.2 LIPID PANEL BASIC LIPID PANEL, NONFASTING 5. Vitamin D deficiency E55.9 VITAMIN D 25 HYDROXY 6. Vitamin B12 deficiency E53.8 VITAMIN B12 7. History of Jordin-en-Y gastric bypass Z98.84 HEMOGLOBIN A1C COMPREHENSIVE METABOLIC PANEL COMPLETE BLOOD COUNT LIPID PANEL BASIC LIPID PANEL, NONFASTING VITAMIN D 25 HYDROXY VITAMIN B12 IRON AND TIBC FERRITIN FOLATE, SERUM VITAMIN A/RETINOL ZINC BLD 8. Iron deficiency E61.1 COMPLETE BLOOD COUNT IRON AND TIBC FERRITIN 9. Encounter for long-term current use of medication Z79.899 HEMOGLOBIN A1C COMPREHENSIVE METABOLIC PANEL COMPLETE BLOOD COUNT LIPID PANEL BASIC LIPID PANEL, NONFASTING VITAMIN D 25 HYDROXY VITAMIN B12 IRON AND TIBC FERRITIN FOLATE, SERUM VITAMIN A/RETINOL ZINC BLD Above issues addressed with patient. Patient involved in shared decision making for management of medical issues. History and medications reviewed. Epic updated as needed Refills and/or prescriptions taken care of and meds adjusted as indicated after reviewed history, exam and labs. Health Maintenance reviewed. Updated record and/or ordered tests as recorded. Encouraged on efforts at healthy diet and regular exercise and adequate sleep. Will keep trying to eat healthy diet at [facility]. Will verify when will need refills for meds since getting through them now. Noted has done well with gradual weight loss--about 14 pounds since end of April. BMI still over 30. Plan to get labs after has consult to Geriatrics since labs were overall good in July and figure they may want to do some labs too. Will file some labs to do with theirs. Guillaume Dominguez MD documented in this encounter [facility] 11-12-2023 Telephone encounter Note Daughter calls asking about status of request. Daughter notified that order was faxed over to [facility] this am. Tabitha Madrid RN [facility] 11-12-2023 Miscellaneous Notes Daughter calls asking about status of request. Daughter notified that order was faxed over to [facility] this am. Tabitha Madrid RN Spoke with nurse shelley Chambers and she states prescription can be faxed to them at [phone]. Prescription faxed See if faxed of order that was printed is what they need. Otherwise, call in the order if that is what they need Patient's request for medication is as follows: Requested Prescriptions Signed Prescriptions Disp Refills cyanocobalamin 1,000 mcg/mL 1 mL 12 Sig: Inject 1 mL intramuscularly once every month. To be administered at [facility] by nurse Authorizing Provider: GUILLAUME DOMINGUEZ Prescription(s) printed as above. Please process accordingly. Daughter (Hardy) calls to report that patient is now residing at [facility] and they are able to give patient her monthly B-12 injections. Daughter requests that an order for [facility] be given so that they are able to administer medication. Per daughter: Modesto Chambers Nurse Line: [phone] Patient cancelled last weeks appointment so is due anytime for injection. Please review and advise. Anne Jennings RN documented in this encounter [facility] 11-12-2023 Telephone encounter Note Spoke with nurse shelley Chambers and she states prescription can be faxed to them at [phone]. Prescription faxed [facility] 11-11-2023 Telephone encounter Note See if faxed of order that was printed is what they need. Otherwise, call in the order if that is what they need Patient's request for medication is as follows: Requested Prescriptions Signed Prescriptions Disp Refills cyanocobalamin 1,000 mcg/mL 1 mL 12 Sig: Inject 1 mL intramuscularly once every month. To be administered at [facility] by nurse Authorizing Provider: GUILLAUME DOMINGUEZ Prescription(s) printed as above. Please process accordingly. [facility] 11-11-2023 Telephone encounter Note Spoke to patient's daughter and confirmed that [facility] address was correct and she provided the room number, which is 186. Letter has been put in the mail. [facility] 11-11-2023 Miscellaneous Notes Spoke to patient's daughter and confirmed that [facility] address was correct and she provided the room number, which is 186. Letter has been put in the mail. documented in this encounter [facility] 11-08-2023 Telephone encounter Note Daughter (Hardy) calls to report that patient is now residing at [facility] and they are able to give patient her monthly B-12 injections. Daughter requests that an order for [facility] be given so that they are able to administer medication. Per daughter: [facility] Nurse Line: [phone] Patient cancelled last weeks appointment so is due anytime for injection. Please review and advise. Anne Jennings RN [facility] 10-29-2023 Instructions Su Nassar MD - 10/29/2023 4:16 PM EDT Assessment / Plan Assessment: 1) Diabetes type 2, sugar control good on Mounjaro 5 mg/wk. Struggling intermittently with availablility ,discussed idea that if Mounjaro stops being available, we could try Rybelsus, but will continue wiht Mounjaro for now. Unchanged 1) Depression, doesn't feel she needs [...] same dose of Mounjaro 2) return to Dr. Rajiv Walker in 6 months Su Nassar MD documented in this encounter [facility] 10-29-2023 History of Present illness Narrative Assessment / Plan Assessment: 1) Diabetes type 2, sugar control good on Mounjaro 5 mg/wk. Struggling intermittently with availablility ,discussed idea that if Mounjaro stops being available, we could try Rybelsus, but will continue wiht Mounjaro for now. Unchanged 1) Depression, doesn't feel she needs [...] same dose of Mounjaro 2) return to Dr. Rajiv Walker in 6 months Su Nassar MD Data Review daughter Hardy has [employer] ([phone]) History Diabetes type 2, dx 1990 last eye exam November, had cataract surgery, no DM eye disease December 2022, though has early macular degen no hx NC, stroke, claudication, intolerant of statins, niacin and welchol does have hx PE so is on chronic anticoag sugars fasting 110, midday 130s Mounjaro helps with sugars, weight stable. Loves this med, on 5mg once a week. daughter Hardy here with her today. Drug history: *Invokana: yeast inf, has these even without this Rx *Byetta: ineffective *Metformin: diarrhea, has stopped Vitamin D deficiency, on calcium 500 mg (+400U vitD) 2x daily, plus calcitriol 0.5 mcg daily Nephrolithiasis s/p lithotripsy, stent Low back and hip pain s/p injections x 3. Context: 1) s/p COVID vaccine Thryve 2) daughter Hardy now helps with her health care ROS 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 per [facility] outside facility Apr 1997 MORBID OBESITY 08/18/2007 Obstructive sleep apnea Sleep study 2003 Occlusion and stenosis of carotid artery without mention of cerebral infarction 03/09/2006 mild stenosis shown on u/s at [facility] u/s repeated 02/02/07 with no change Open [...] rash. Tape [Other] documented in this encounter [facility] 10-29-2023 Telephone encounter Note The following approved medication requests have been transmitted electronically. Requested Prescriptions Pending Prescriptions Disp Refills apixaban (ELIQUIS) 5 mg tab(s) 60 tablet 11 Sig: Take 1 tablet by mouth two times a day. Guillaume Dominguez MD [facility] 10-29-2023 Miscellaneous Notes The following approved medication requests have been transmitted electronically. Requested Prescriptions Pending Prescriptions Disp Refills apixaban (ELIQUIS) 5 mg tab(s) 60 tablet 11 Sig: Take 1 tablet by mouth two times a day. Guillaume Dominguez MD Daughter calls to let provider know she only has enough Eliquis to last through tomorrow 10/30/2023. Anne Jennings RN Patient has been identified by name and date of : Yes, Provider Dr Dominguez Date 10-28-23 Time 11:02A Daughter phones for refill(s): Requested Prescriptions Pending Prescriptions Disp Refills apixaban (ELIQUIS) 5 mg tab(s) 60 tablet 11 Sig: Take 1 tablet by mouth two times a day. Date of last office visit in primary care: 10/11/2023 Date of next office visit in primary care: 12/10/2023 Please advise. Thank you. Natalya Byrd. documented in this encounter [facility] 10-29-2023 Telephone encounter Note Daughter calls to let provider know she only has enough Eliquis to last through tomorrow 10/30/2023. Anne Jennings, RN [facility] 10-28-2023 Telephone encounter Note Patient has been identified by name and date of : Yes, Provider Dr Dominguez Date 10-28-23 Time 11:02A Daughter phones for refill(s): Requested Prescriptions Pending Prescriptions Disp Refills apixaban (ELIQUIS) 5 mg tab(s) 60 tablet 11 Sig: Take 1 tablet by mouth two times a day. Date of last office visit in primary care: 10/11/2023 Date of next office visit in primary care: 12/10/2023 Please advise. Thank you. Natalya Byrd. [facility] Work Phone: 10-11-2023 History of Present illness Narrative SUBJECTIVE: RSV Vaccine(1 - 1-dose 60+ series) Never done Diabetic Foot Exam due on 09/23/2016 Behavioral Health Screening Never done Covid-19 Vaccine( season) due on 09/13/2023 JUDIT Davenport is a 83 year old female. 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, Lumbar Region Lichen Sclerosus Disorders of Bursae and Tendons in Shoulder Region, Unspecified Sprain of Lumbar Region Vitamin D Deficiency Lumbar Strain, Subsequent Encounter Lumbar Spondylosis Lumbar Degenerative Disc Disease Lumbosacral Facet Joint Syndrome Murmur, Cardiac Atypical Chest Pain Uncontrolled Type 2 Diabetes Mellitus With Hyperglycemia, Without Long-Term Current Use of Insulin (Hcc) Retrosternal Chest Pain Neck Pain History [...] Trochanteric Bursitis of Left Hip Muscle Weakness Radiculopathy, Lumbar Region Irregular Heart Beat Pac (Premature Atrial Contraction) Obesity, Class II, Bmi 35-39.9 Class 1 Obesity Due to Excess Calories With Serious Comorbidity and Body Mass Index (Bmi) of 34.0 to 34.9 in Adult Presents today for physical exam prior to assisted living admission. 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, currently admitted following a stroke and experiencing Parkinson's. Notes she plans to go to assisted living at [facility].She notes currently getting assistance with medications from her family. Family is also helping with financial groceries. Notes she always feels fatigued these days, she is at baseline today. She has been followed by endocrinology by Dr Rajiv Miranda MD endocrinology. Semaglutide 0.5 mg subcu 1 time per week was ordered at her last visit September 28, 2023. Notes she has not been able to get this yet. DIABETES MELLITUS:Without report of excessive thirst or increased frequency of urination, chest pain or dyspnea , numbness, tingling or pain in extremities, new or unusual visual symptoms, low sugar/hypoglycemic reactions, weight loss/gain, lightheadedness/dizziness, and bowel changes/loose stools.Patient's last HgA1C was Hemoglobin A1C (%) Date Value 08/27/2023 7.3 05/18/2023 8.5 10/07/2020 7.7 06/28/2020 7.6 Hemoglobin A1C (POCT) (%) Date Value 12/30/2022 7.0 01/10/2021 7.0 ) Has seen Dr Alegre and Dr. Schmitt [facility] cardiologists. Most recently seen in cardiology by Nhi De La Torre CNP June 25, 2023. She was continued on medications unchanged. Recent stress test and echo were noted to be in normal range. HTN: Without report of headache, chest pain, palpitations, dyspnea, and peripheral edema. . Last 3 Encounter BP Readings: Date: BP: 10/11/2023 119/81 08/13/2023 116/70 08/11/2023 127/79 Hyperlipidemia. Ms. Davenport reports doing well on current therapy. Her most recent lipid panels are: Cholesterol, Total (mg/dL) Date Value 05/18/2023 182 10/07/2020 180 03/17/2019 194 Total Cholesterol, Nonfasting (mg/dL) Date Value 08/27/2023 165 10/10/2020 182 HDL Cholesterol (mg/dL) Date Value 05/18/2023 60 10/07/2020 56 03/17/2019 67 HDL Cholesterol, Nonfasting (mg/dL) Date Value 08/27/2023 54 10/10/2020 58 LDL Cholesterol (mg/dL) Date Value 05/18/2023 97 10/07/2020 94 03/17/2019 101 LDL Cholesterol, Nonfasting (mg/dL) Date Value 08/27/2023 90 10/10/2020 98 Triglyceride (mg/dL) Date Value 05/18/2023 125 10/07/2020 152 03/17/2019 130 Triglycerides, Nonfasting (mg/dL) Date Value 08/27/2023 104 10/10/2020 129 Review of Systems Constitutional: Negative. Respiratory: Negative. Objective BP 119/81 Pulse 88 Resp 16 Ht 165.1 cm (5' 5) Wt 92.1 kg (203 lb) BMI 33.78 kg/m Physical Exam Vitals and nursing note reviewed. Constitutional: General: She is not in acute distress. Appearance: Normal appearance. She is obese. She is not ill-appearing, toxic-appearing or diaphoretic. HENT: Head: Normocephalic and atraumatic. Eyes: Conjunctiva/sclera: Conjunctivae normal. Neck: Thyroid: No thyromegaly or thyroid tenderness. Vascular: Normal carotid pulses. No carotid bruit or JVD. Cardiovascular: Rate and Rhythm: Normal rate and regular rhythm. Pulses: Carotid pulses are 2+ on the [...] normal. ALLERGIES Allergen Reactions Asa [Salicylates] Anaphylaxis Cephalexin [...] not suppose to take it Crestor [Rosuvastat* Eggs [Egg] Diarrhea Not true allergy Erythromycin Myalgia Etodolac Contraindication-Medical Surgical Was told never to take NSAID due to bypass surgery. She also developed severe pain after taking Etodolac that was excruciating Lipitor [Atorvastat* Niacin Unknown Niaspan [Niacin (An* Nsaids (Non-Steroid* Intolerance Was told to avoid all NSAID's due to bypass surgery Penicillins Rash Pravachol [Pravasta* Sulfa (Sulfonamide * Rash Tape [Adhesive Tape* Itching Zetia [Ezetimibe] Zocor [Simvastatin] Medications tirzepatide (MOUNJARO) 5 mg/0.5 mL pen injector^Inject 5 mg subcutaneously one time a week.^Disp: 2 mL^Rfl: 5 oxybutynin ER (DITROPAN XL) 10 mg 24 hr tablet^Take 1 tablet by mouth once daily.^Disp: 90 tablet^Rfl: 1 DULoxetine (CYMBALTA) 20 mg capsule^Take 2 capsules by mouth once daily.^Disp: 180 capsule^Rfl: 1 fluconazole (DIFLUCAN) 200 mg tablet^TAKE 1 TABLET 3x per week^Disp: 32 tablet^Rfl: 3 Clobetasol Propionate (CLOBEX) 0.05 % sham^Shampoo twice a week with therapeutic shampoo for itching^Disp: 118 mL^Rfl: 4 hydrocortisone 2.5 % cream^Apply twice a day to rash on face, then as needed^Disp: 28 g^Rfl: 3 metoprolol succinate ER (TOPROL XL) 25 mg 24 hr tablet^Take 1 tablet by mouth once daily.^Disp: 90 tablet^Rfl: 3 calcitriol (ROCALTROL) 0.5 mcg capsule^Take 1 capsule by mouth once daily.^Disp: 90 capsule^Rfl: 4 clobetasol (TEMOVATE) 0.05 % cream^3x per day for 2 weeks and then twice daily thereafter^Disp: 60 g^Rfl: 4 blood sugar diagnostic (ACCU-CHEK GUIDE TEST STRIPS) test strip^1 Strip three times daily. Use as instructed DX: E11.42^Disp: 100 Each^Rfl: 11 Lancets lancets^Test blood sugar(s) 3 times daily. Dx: Other DM Code E11.42 Insulin: No^Disp: 100 Each^Rfl: 11 apixaban (ELIQUIS) 5 mg tab(s)^Take 1 tablet by mouth twice daily.^Disp: 60 tablet^Rfl: 11 clindamycin (CLEOCIN) 300 mg capsule^take 2 capsules by mouth 1 hour prior to appointment^Disp: ^Rfl: blood sugar diagnostic (ACCU-CHEK POLY PLUS TEST STRP) test strip^Check sugars 3 times daily^Disp: 100 Each^Rfl: 11 ferrous sulfate 325 mg (65 mg iron) tablet^Take 1 tablet by mouth once daily.^Disp: 30 tablet^Rfl: 0 diphenhydramine HCl (BENADRYL ORAL)^Take 1 tablet by mouth as needed (At bedtime).^Disp: ^Rfl: cholecalciferol, vitamin D3, (VITAMIN D3 ORAL)^Take by mouth once daily.^Disp: ^Rfl: acetaminophen (TYLENOL) 500 mg tablet^Take 500 mg [...] by mouth once daily. ^Disp: 0^Rfl: 0 semaglutide (OZEMPIC) 0.25 mg or 0.5 mg (2 mg/3 mL) pen^Inject 0.5 mg subcutaneously one time a week.^Disp: 3 mL^Rfl: 2 (Patient not taking: Reported on 10/11/2023) chlorhexidine (HIBICLENS) 4 % external liquid^Wash genitale area once a day for infectious vulvitis^Disp: 473 mL^Rfl: 11 (Patient not taking: Reported on 10/11/2023) ondansetron orally disintegrating (ZOFRAN ODT) 4 mg disintegrating tablet^Take 1 tablet by mouth every 6 hours as needed for nausea/vomiting.^Disp: 12 tablet^Rfl: 0 (Patient not taking: Reported on 10/11/2023) pnv/iron,carb/om-3/fa/fat 1(PRE-JIMY MULTIVITAMINS WITH MINERALS 27 MG-1 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 per [facility] outside facility Apr 1997 MORBID OBESITY 08/18/2007 Obstructive sleep apnea Sleep study 2003 Occlusion and stenosis of carotid artery without mention of cerebral infarction 03/09/2006 mild stenosis shown on u/s at [facility] u/s repeated 02/02/07 with no change Open [...] SURGICAL HISTORY OF 04/30/2008 Right total knee Social History Tobacco Use Smoking status: Never Smokeless tobacco: Never Vaping Use Vaping Use: Never used Substance Use Topics Alcohol use: No Drug use: No FAMILY HISTORY Problem Relation Age of Onset Breast Cancer Mother cva Stroke Mother Heart Father AAA Colon Cancer Father other (leukemia) Brother Latest Ref Rng 05/18/2023 08/27/2023 WBC 3.70 - 11.00 k/uL 9.14 8.38 RBC 3.90 - 5.20 m/uL 4.59 4.51 Hemoglobin 11.5 - 15.5 g/dL 13.1 12.9 Hematocrit 36.0 - 46.0 % 41.2 40.6 MCV 80.0 - 100.0 fL 89.8 90.0 MCH 26.0 - 34.0 pg 28.5 28.6 MCHC 30.5 - 36.0 g/dL 31.8 31.8 RDW-CV 11.5 - 15.0 % 14.6 14.6 Platelet Count 150 - 400 k/uL 326 307 MPV 9.0 - 12.7 fL 11.2 11.0 Neut% % 67.7 72.7 Abs Neut (ANC) 1.45 - 7.50 k/uL 6.18 6.10 Lymph% % 20.8 16.1 Abs Lymph 1.00 - 4.00 k/uL 1.90 1.35 [place]% % 8.5 8.4 Abs [place] <0.87 k/uL 0.78 0.70 Eosin% % 2.0 1.7 Abs Eosin <0.46 k/uL 0.18 0.14 Baso% % 0.5 0.6 Abs Baso <0.11 k/uL 0.05 0.05 Immature Gran % % 0.5 0.5 IMMATURE GRANS (ABS) <0.10 k/uL 0.05 0.04 NRBC /100 WBC 0.0 0.0 Absolute nRBC <0.01 k/uL <0.01 <0.01 DTYPE Auto Auto Protein, Total 6.3 - 8.0 g/dL 7.1 7.1 Albumin 3.9 - 4.9 g/dL 3.6 (L) 3.6 (L) Calcium 8.5 - 10.2 mg/dL 9.3 9.2 Bilirubin, Total 0.2 - 1.3 mg/dL 0.3 0.3 Alkaline Phosphatase 34 - 123 U/L 133 (H) 127 (H) AST 13 - 35 U/L 9 (L) 8 (L) ALT 7 - 38 U/L 8 8 Glucose 74 - 99 mg/dL 185 (H) 142 (H) BUN 7 - 21 mg/dL 22 (H) 17 Creatinine 0.58 - 0.96 mg/dL 0.60 0.59 Sodium 136 - 144 mmol/L 137 136 Potassium 3.7 - 5.1 mmol/L 4.0 3.8 Chloride 97 - 105 mmol/L 103 102 CO2 22 - 30 mmol/L 21 (L) 24 Anion Gap 9 - 18 mmol/L 13 10 eGFR >=60 mL/min/1.73m 90 91 Cholesterol, Total <200 mg/dL 182 Triglyceride <150 mg/dL 125 HDL Cholesterol >39 mg/dL 60 Non HDL Cholesterol <130 mg/dL 122 Fasting Time hrs 11 VLDL Cholesterol <30 mg/dL 25 TC:HDL Ratio <5.10 3.03 LDL Cholesterol <100 mg/dL 97 LDL:HDL Ratio <2.54 1.62 Total Cholesterol, Nonfasting <200 mg/dL 165 Triglycerides, Nonfasting <150 mg/dL 104 HDL Cholesterol, Nonfasting >39 mg/dL 54 LDL Cholesterol, Nonfasting <100 mg/dL 90 Non HDL Cholesterol, Nonfasting <130 mg/dL 111 VLDL Cholesterol, Nonfasting <30 mg/dL 21 Total Chol/HDL Ratio, Nonfasting <5.10 mg/dL 3.06 LDL/HDL Ratio, Nonfasting <2.54 mg/dL 1.67 Creatinine, Ur Random (UCRR) 20.0 - 300.0 mg/dL 93.0 Albumin, Urine Random mg/L 58.8 Albumin/Creat Ratio <30 mg/g 63 (H) Iron 41 - 186 ug/dL 42 33 (L) TIBC 232 - 386 ug/dL 305 278 Transferrin Saturation 15.0 - 57.0 % 13.8 (L) 11.9 (L) Hemoglobin A1C 4.3 - 5.6 % 8.5 (H) 7.3 (H) Estimated Average Glucose mg/dL 197 163 Ferritin 14.7 - 205.1 ng/mL 304.0 (H) 270.0 (H) Vitamin D 25 Hydroxy 31.0 - 80.0 ng/mL 43.0 50.0 TSH 0.270 - 4.200 mIU/L 1.490 Vitamin B12 232 - 1,245 pg/mL 496 ASSESSMENT/PLAN: 1. 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, without long-term current use of insulin ([facility]) - ICD9: 250.02, ICD10: E11.65 (primary diagnosis) - Controlled - Continue current medications 2. Mixed hyperlipidemia - ICD9: 272.2, ICD10: E78.2 controlled - Continue current medications - Endorse healthy diet and regular exercise 3. Class 3 severe obesity due to excess calories with serious comorbidity and body mass index (BMI) of 40.0 to 44.9 in adult ([facility]) - ICD9: 278.01, V85.41, ICD10: E66.01, Z68.41 Endorse portion control and activity as able such as walking 4. Other specified glaucoma, unspecified laterality - ICD9: 365.89, ICD10: H40.89 Followed by ophthalmology 5. Pernicious anemia - ICD9: 281.0, ICD10: D51.0 Stable, currently controlled, continue to monitor. 6. Lumbar spondylosis - ICD9: 721.3, ICD10: M47.816 Stable, currently controlled, continue to monitor. 7. Lumbar degenerative disc disease - ICD9: 722.52, ICD10: M51.36 Stable, currently controlled, continue to monitor. 8. Carotid artery stenosis without cerebral infarction, bilateral - ICD9: 433.10, 433.30, ICD10: I65.23 Stable, currently controlled, continue to monitor. Next appointment 12/09 at 3:25pm MD Comfort Acosta APRN.VENTILATION MECHANIC Medical Decision Making: Problems: Moderate: 2+ stable chronic illnesses Data: Unique test result(s) reviewed: 3+ Risk: Low: Low risk from testing/treatment Medical Decision Making Level: 4 - Moderate documented in this encounter [facility] 10-08-2023 Telephone encounter Note Yes she can go back on Mounjaro 5 mg once a week. She can take Mounjaro 1 week after taking ozempic. If there is a shortage of Mounjaro, she will need 1 mg of ozempic (not 0.5 mg). Rx Mounjaro was sent to [facility] in [place] Rajiv Walker MD [facility] 10-08-2023 Miscellaneous Notes Yes she can go back on Mounjaro 5 mg once a week. She can take Mounjaro 1 week after taking ozempic. If there is a shortage of Mounjaro, she will need 1 mg of ozempic (not 0.5 mg). Rx Mounjaro was sent to [facility] in [place] Rajiv Walker MD Pts daughter states pt took Ozempic starting 10/02/23, since Mounjaro was on back order, and her blood sugars have been high ever since. She states [facility] in [place] contacted pt to let her know medication was back in stock. She would like to know if it would be okay for pt to switch back to Mounjaro for her next dose, this Wednesday. [facility] phone [phone] documented in this encounter [facility] 10-07-2023 Telephone encounter Note Pts daughter states pt took Ozempic starting 10/02/23, since Mounjaro was on back order, and her blood sugars have been high ever since. She states [facility] in [place] contacted pt to let her know medication was back in stock. She would like to know if it would be okay for pt to switch back to Mounjaro for her next dose, this Wednesday. [facility] phone [phone] [facility] 10-04-2023 History of Present illness Narrative Patient presents for B-12 injection. Denies any problems at this time. Patient instructed on any SE of medication, verbalized understanding and agreed to proceed with treatment. Tolerated injection well. Ning Mckeon LPN documented in this encounter [facility] 09-29-2023 Note Addended by: RAJIV WALKER on: 09/29/2023 08:01 PM Modules accepted: Orders [facility] 09-29-2023 Miscellaneous Notes Addended by: RAJIV WALKER on: 09/29/2023 08:01 PM Modules accepted: Orders She can try to fill ozempic 0.25 mg/0.5 mg pen and take instead of Mounjaro. She can start 0.5 mg right away once a week if no significant gap in taking Mounjaro. If has been off Mounjaro for more than 2 weeks, then start 0.25 mg of ozempic once a week x 4 weeks, then increase to 0.5 mg once a week. Rajiv Walker MD RN returned phone call. Let patient's daughter Hardy know that once the provider reviews chart, we'll get back to her with alternative prescription. 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 PSS: it is ok to transfer Hardy's call. September 28, 2023 3:13 PM Patient's daughter called about the Mounjaro medication for patient. She is concerned as there is a national backorder on the Mounjaro medication. She wants to know if there is an alternative or what can be done in the meantime. Patient currently does not have any Mounjaro. Hardy, daughter: [phone] documented in this encounter [facility] 09-29-2023 Telephone encounter Note She can try to fill ozempic 0.25 mg/0.5 mg pen and take instead of Mounjaro. She can start 0.5 mg right away once a week if no significant gap in taking Mounjaro. If has been off Mounjaro for more than 2 weeks, then start 0.25 mg of ozempic once a week x 4 weeks, then increase to 0.5 mg once a week. Rajiv Walker MD [facility] 09-29-2023 Telephone encounter Note RN returned phone call. Let patient's daughter Hadry know that once the provider reviews chart, we'll get back to her with alternative prescription. 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 PSS: it is ok to transfer Hardy's call. [facility] 09-28-2023 Telephone encounter Note September 28, 2023 3:13 PM Patient's daughter called about the Mounjaro medication for patient. She is concerned as there is a national backorder on the Mounjaro medication. She wants to know if there is an alternative or what can be done in the meantime. Patient currently does not have any Mounjaro. Hardy, daughter: [phone] [facility] 09-17-2023 Miscellaneous Notes The following approved medication requests have been transmitted electronically. Requested Prescriptions Pending Prescriptions Disp Refills oxybutynin ER (DITROPAN XL) 10 mg 24 hr tablet 90 tablet 1 Guillaume Dominguez MD Prior RX was for daily as needed. Sent for daily but if still taking just as needed, and if works for her that way, okay to continue as needed. MALGORZATA: 08/13/23 with [facility] NOV: 12/10/23 with PCP Last refill: 03/18/23 With 90 and 1 refills Isabel Petersen MA Patient has been identified by name and date of : Patient phones for refill(s): Requested Prescriptions Pending Prescriptions Disp Refills oxybutynin ER (DITROPAN XL) 10 mg 24 hr tablet 90 tablet 1 Date of last office visit in primary care: 08/13/2023 Date of next office visit in primary care: 12/10/2023 Please advise. Thank you. Jeanne Davalos. documented in this encounter [facility] 09-06-2023 History of Present illness Narrative Patient presents for B-12 injection. Denies any problems at this time. Patient instructed on any SE of medication, verbalized understanding and agreed to proceed with treatment. Tolerated injection well. Ning Mckeon LPN documented in this encounter [facility] 08-16-2023 Miscellaneous Notes Pts daughter called and is notified of providers message and instructions. She voices understanding. Bessie Watson RN No problem, I sent in the RX for 20 mg, 2 pills daily. Please let her daughter know. Thanks! Pt's daughter calling and states that pt was in and saw [facility] Caputo this past Wednesday and pt's Duloxetine was changed from 20 mg to 40 mg. Prior auth was required and approved but out of pocket cost for the 30 mg was still $260 dollars for a 90 day supply. Pt did not pay anything for the 20 mg. Daughter called [employer] and they told her that if the provider sends a new script in to [facility] for 20 mg take 2 tablets daily, [employer] will cover that. Called and confirmed with [facility] pharmacist that they had run the 40 mg with the prior auth and it was going to cost the pt $259 for 90 days. Please if okay, change prescription to 20 mg 2 tablets daily so that insurance will cover the script. Call pt's daughter if this is okay and when RX sent to pharmacy. If she does not answer, she gives permission to leave a voicemail. documented in this encounter [facility] 08-16-2023 Miscellaneous Notes DNR comfort care orders faxed to [facility] Medical Records at [phone]. Copy also sent to scanning as well as copy mailed to patients home address as requested. MICHAEL Vazquez documented in this encounter [facility] 08-13-2023 Miscellaneous Notes This was already done. Pharmacy notified. Pharmacy reports Cymbalta 40 mg needs a PA. PRIOR AUTHORIZATION Medication for Prior Authorization: Duloxetine Cymbalta 40 mg Other formulary meds available : NO Insurance Company: [employer] Medicare part D Insurance Company phone number: [phone] Patient insurance ID number: [id number] Marquita Mclaughlin LPN documented in this encounter [facility] 08-13-2023 Miscellaneous Notes Images from the original note were not included. Prior authorization approved Payer: [employer] [phone] PA Case: [id number], Status: Approved, Coverage Starts on: 05/31/2023 12:00:00 AM, Coverage Ends on: 05/30/2024 12:00:00 AM. Questions? Contact . Approval Details Authorization number: 0 Authorized from May 31, 2023 to May 30, 2024 Electronic appeal: Not supported View History Medication Being Authorized DULoxetine (CYMBALTA) 40 mg cpDR Take 1 capsule by mouth once daily. Dispense: 90 capsule Refills: 2 Start: 08/13/2023 Class: Normal Diagnoses: Anxiety disorder, unspecified type; Radiculopathy, lumbar region; Chronic SI joint pain This order has been released to its destination. To be filled at: e- [id number] [place] [address] - [id number] [facility] [phone] [id number] Electronic PA completed for duloxetine (cymbalta) documented in this encounter [facility] 08-13-2023 Instructions Josefa Caputo APRN.CNP - 08/13/2023 11:20 AM EDT Plan to see Dr. Knott with geriatrics here in [place] sometime in November or after. documented in this encounter [facility] 08-13-2023 History of Present illness Narrative SUBJECTIVE Miriam Davenport is a 83 year old female here today for a check up on her medical problems. Chief Complaint Patient presents with: F/U 3 Month HPI Miriam Davenport is a 83 year old female. She is an established patient of Guillaume Dominguez MD. Here today for a routine 3 month follow up. She is accompanied by her daughter. She has noticed some memory issues, recent MOCA was , referred to geriatrics and brain health/wellness. has had x2 strokes, in group home. Family has noticed Shelley being a little more depressed with these events going on. Daughter wondering if Cymbalta could be increased. Needs DNR paperwork to have on file at the hospital. She does not want heroic measures. Would like to update her carotid ultrasound, last was 2020. Right carotid artery stenosis. Depression Screening PHQ-2 Score 08/13/2023 4 Depression screening tool completed and reviewed. Based on score and interview, patient is already diagnosed with depression. Screening tool discussed with patient, and I recommended increasing medication. Her medications were reviewed today and her list is now up to date. Medications Current Outpatient Medications Medication Sig chlorhexidine (HIBICLENS) 4 % external liquid Wash genitale area once a day for infectious vulvitis fluconazole (DIFLUCAN) 200 mg tablet TAKE 1 TABLET 3x per week Clobetasol Propionate (CLOBEX) 0.05 % sham Shampoo twice a week with therapeutic shampoo for itching hydrocortisone 2.5 % cream Apply twice a day to rash on face, then as needed tirzepatide (MOUNJARO) 5 mg/0.5 mL pen injector Inject 5 mg subcutaneously one time a week. calcitriol (ROCALTROL) 0.5 mcg capsule Take 1 capsule by mouth once daily. oxybutynin ER (DITROPAN XL) 10 mg 24 hr tablet take 1 tablet by mouth once daily if needed for OVERACTIVE BLADDER clobetasol (TEMOVATE) 0.05 % cream 3x per day for 2 weeks and then twice daily thereafter blood sugar diagnostic (ACCU-CHEK GUIDE TEST STRIPS) test strip 1 Strip three times daily. Use as instructed DX: E11.42 Lancets lancets Test blood sugar(s) 3 times daily. Dx: Other DM Code E11.42 Insulin: No apixaban (ELIQUIS) 5 mg tab(s) Take 1 tablet by mouth twice daily. clindamycin (CLEOCIN) 300 mg capsule take 2 capsules by mouth 1 hour prior to appointment blood sugar diagnostic (ACCU-CHEK POLY PLUS TEST STRP) test strip Check sugars 3 times daily ondansetron orally disintegrating (ZOFRAN ODT) 4 mg disintegrating tablet Take 1 tablet by mouth every 6 hours as needed for nausea/vomiting. diphenhydramine HCl (BENADRYL ORAL) Take 1 tablet [...] capsule by mouth once daily. DULoxetine (CYMBALTA) 40 mg cpDR Take 1 capsule by mouth once daily. metoprolol succinate ER (TOPROL XL) 25 mg 24 hr tablet Take 1 tablet by mouth once daily. ferrous sulfate 325 mg (65 mg iron) tablet Take 1 tablet by mouth once daily. Current Facility-Administered Medications Medication Dose Route Frequency cyanocobalamin 1,000 mcg injection 1,000 mcg INTRAMUSCULAR q 1 MONTH perflutren lipid microspheres 1.3 mL in NaCl (PF) 0.9% 10 mL injection (DEFINOnVantage) INTRAVENOUS DIRECTED PRN sodium chloride 0.9 % [...] not suppose to take it Crestor [Rosuvastat* Eggs [Egg] Diarrhea Not true allergy Erythromycin Myalgia Etodolac Contraindication-Medical Surgical Was told never to take NSAID due to bypass surgery. She also developed severe pain after taking Etodolac that was excruciating Lipitor [Atorvastat* Niacin Unknown Niaspan [Niacin (An* Nsaids (Non-Steroid* Intolerance Was told to avoid all NSAID's due to bypass surgery Penicillins Rash Pravachol [Pravasta* Sulfa (Sulfonamide * Rash Tape [Adhesive Tape* Itching Zetia [Ezetimibe] Zocor [Simvastatin] ACTIVE PROBLEM LIST Class 1 Obesity Due to Excess Calories With Serious Comorbidity and Body Mass Index (Bmi) of 34.0 to 34.9 in Adult - 07/09/2023 Obesity, Class II, Bmi 35-39.9 - 02/02/2023 [...] Pain - 04/09/2015 Neck Pain - 04/09/2015 Uncontrolled Type 2 Diabetes Mellitus With Hyperglycemia, Without Long-Term Current Use of Insulin ([facility]) - 10/16/2014 Atypical Chest Pain - 08/08/2014 [...] 08/23/2009 Comment: Bx with squamous hyperplasia per [facility]DRESS [facility]IC[facility] outside facility Apr 1997 Intervertebral Cervical Disc Disorder With Myelopathy, 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, Lumbar Region - 04/11/2009 Other and 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 Osteopenia - 04/20/2008 Comment: 2012 t score -1.7 at [facility] Contact Dermatitis and Other Eczema, Due to Unspecified Cause - 12/07/2007 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 Anxiety State - 07/28/2007 Pernicious Anemia - 04/13/2007 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 - 03/29/2007 Eating Disorder, Unspecified - 03/29/2007 Occlusion and Stenosis of Carotid Artery Without Mention of Cerebral Infarction - 03/09/2006 Comment: mild stenosis shown on u/s at [facility] u/s repeated 02/02/07 with no change Calculus of Gallbladder Without Mention of Cholecystitis Or Obstruction - 04/09/2005 Comment: No evidence obstruction on HIDA scan 03/04 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 Cardiovascular: Negative. OBJECTIVE BP 116/70 Pulse 98 Resp 16 Wt 208 lb (94.3kg) SpO2 95% Physical Exam Vitals and nursing note reviewed. [...] - ICD9: 296.22, ICD10: F32.1 (primary diagnosis) Increase Cymbalta to 40 mg daily from 20 mg daily. 2. Carotid stenosis, right - ICD9: 433.10, ICD10: I65.21 Update carotid ultrasound. - US CAROTID ARTERIES POLO VAS LAB 3. Memory deficit - ICD9: 780.93, ICD10: R41.3 Planning to follow up with geriatrics, would like to see Dr. Knott once seeing patient here in [place]. 4. Anxiety disorder, unspecified type - ICD9: 300.00, ICD10: F41.9 - DEPRESSION SCREENING/ASSESSMENT - DULOXETINE 40 MG CAPSULE,DELAYED RELEASE 5. Radiculopathy, lumbar region - ICD9: 724.4, ICD10: M54.16 - DULOXETINE 40 MG CAPSULE,DELAYED RELEASE 6. Chronic SI joint pain - ICD9: 724.6, 338.29, ICD10: M53.3, G89.29 - DULOXETINE 40 MG CAPSULE,DELAYED RELEASE 7. Vitamin D deficiency - ICD9: 268.9, ICD10: E55.9 - VITAMIN D 25 HYDROXY 8. Vitamin B12 deficiency - ICD9: 266.2, ICD10: E53.8 - VITAMIN B12 BLOOD 9. Iron deficiency - ICD9: 280.9, ICD10: E61.1 - CBC + DIFF - IRON + TIBC - FERRITIN BLD - VITAMIN B12 BLOOD 10. Screening, lipid - ICD9: V77.91, ICD10: Z13.220 - LIPID PANEL, NONFASTING 11. Screening for thyroid disorder - ICD9: V77.0, ICD10: Z13.29 - TSH BLD 12. Encounter for therapeutic drug monitoring - ICD9: V58.83, ICD10: Z51.81 - CBC + DIFF - COMP METABOLIC PANEL Discussed DNR protocols with patient and daughter. She does not want heroic measures. Portions of this note have been entered [...] for Keep next scheduled appointment.. Josefa Caputo APRN-HIMA documented in this encounter [facility] 08-11-2023 Instructions Martha Germain DO - 08/11/2023 9:59 AM EDT Appointments: - Brain Health and Wellness [facility]: [phone] (option 1). This is a series of 6 group visits where you will learn how to improve your memory with a healthy lifestyle. It is available as a virtual visit or in [place] on Wednesdays 10-noon, 6 visits every other week. Next group starts January 04. - [facility] Successful Aging Program (geriatrics): [phone] Follow these guidelines to improve your memory and brain function: - Follow the MIND Diet as closely as possible. See the dietary guidelines below. - Do some form of physical activity every day, even for 5-10 minutes. The goal is to move more and sit less. See the physical activity guidelines below. [facility] and go once a week. - Engage in social activities as much as possible. Talking to other people is good for the brain! - Consider volunteering. It provides social interaction, purpose, structure, and a way to give back to the community. Opportunities can be found at [email or web address] - Play games at least 3x/week that will stimulate and challenge your brain. Brain games are available on the following websites: BONESUPPORT and agencyQ. - Practice meditation or deep breathing for a few minutes each day. You can sit quietly and focus on your breath or listen to a guided meditation on the free madhavi Insight Timer. MIND Diet guidelines: - Eat 1/2 cup berries, especially blueberries and strawberries, at least 2x per week. - Eat 1 handful (1/4 cup) nuts at least 5x per week. Include walnuts. - Eat 100% whole grains 3x per day (brown rice, wild rice, black rice, quinoa, barley, bulgur, farro, rolled oats, steel cut oats, amaranth, spelt, millet, wheat berries). - Eat 1-2 cups of leafy greens at least 6x per week (spinach, arugula, kale, mustard greens, emely greens, dandelion greens, rayne lettuce). - Eat at least 1 other vegetable (other than dark leafy greens) every day. - Eat 1/2 cup beans or lentils at least 3x per week. - Eat fish at least once per week. Choose low mercury fish: salmon, sardines, anchovies, santoyo, halibut, scallops. Avoid fried fish and fish high in mercury (swordfish, Georgian sea raya, orange roughy, ahi tuna, albacore (white) tuna). Choose light/skipjack tuna instead of white tuna, and limit to 2 servings/week because it has some mercury. - Eat chicken at least 2x per week. - Extra virgin olive oil is the primary oil used at home for cooking and on salads. - Limit margarine and butter to less than 1 Tbsp per day. - Limit red meat and processed meats to less than 4x per week. Red meat: beef, pork, [place]edo, venison, veal, bison. Processed meats: larkin, hotdogs, salami, sausage, pepperoni, pastrami, cold cuts, ham - Limit sweets, candy, and pastries to less than 5x per week. - Limit cheese to 1 serving per week or less. 1 serving = 1 ounce. - Limit alcohol to 1 drink per day for women and 2 drinks per day for men. - Avoid fried foods and fast foods. Physical activity: Aerobic exercise - We need at least 150 minutes (2.5 hours) of moderate physical activity per week. An example of moderate activity is brisk walking or riding a stationary bike at a pace that will get your heart rate up. - Track your steps with a watch, pedometer, or smartphone and aim for at least 7000 steps per day. Strength training exercises - We need to do strength training exercises 2-3x/week. - Examples: power yoga, exercise bands, weights, nautilus machines, using your own body weight (push-ups, sit-ups, squats, lunges, plank pose, etc.) Resources: - Keep Sharp: Build a Better Brain at any Age by Dr. Sonu Tsang - Search for videos about Alzheimer's Disease at www.nutritionGoIP Global.org - Read about modifiable risk factors in the following article online: Dementia prevention, intervention, and care: 2020 report of the Lancet Commission - Great resource in [place] for patients and families: [employer] https://[email or web address]/ - Memory Cafes (A Dementia Friendly LIFE) in [place], [place], [facility], and [place]. [email or web address]-[email or web address] - We Care program for caregivers through [facility]: [phone] or [email or web address] Memory research at [facility]: The [facility] Brain Health at [facility] and [place], [place] is conducting clinical trials to advance new treatments and diagnostic approaches for patients with memory loss, as well as cognitively normal patients. To learn more about current trials at [facility] please call the [facility] Research Line at [phone], leave a message and one of our staff will contact you. documented in this encounter [facility] 08-11-2023 History of Present illness Narrative [facility] SUBJECTIVE: Miriam Davenport is a 83 year old female with a pertinent PMH as listed below who presents for a cognitive screening and assessment of modifiable risk factors of cognitive decline. Consultation requested by Comfort Patterson APRN.VENTILATION MECHANIC for an opinion regarding Miriam Davenport. My final recommendations will be communicated back to the referring provider by way of shared medical record. Accompanied by: rehan Ruiz HPI: Shelley is concerned about her memory and states it is getting worse. When she wants to put something on the grocery list, she picks up the pen and cannot recall what she wanted to write down. She forgets recent events. They have noticed her memory declining over the past year. Her family noticed first and now she is noticing it. Hardy asks if she has taken her medications and she doesn't remember. Hardy calls her mother several times per day to check in. She lives alone and is independent with her activities. Her had a stroke 2 months ago and is in a SNF; he will be coming home soon. Hardy lives in [place] and comes 2x/month to help out. She is her healthcare POA. Shelley has 4 other kids. They are looking into assisted living. She is unsteady on her feet and has fallen a few times per her dtr. Last fall in May. No h/o concussions. Using a walker. Word finding difficulties: Yes Difficulty recalling recent events: Yes Need frequent reminders: Yes Being repetitive: Yes Difficulty with medications: Yes. Hardy sorts out her pills each month and calls her to remind her. Difficulty managing finances: Hardy does this. Difficulty making decisions: Yes Easily distracted: Yes Difficulties with familiar tasks: No Getting lost in familiar places: No Change in personality: No H/o stroke or TIA: No H/o head injury: No Hearing impairment: None FHx AD/dementia: No Patient Entered Questionnaires Not done Brain imaging No brain imaging available. Assessment scores: PHQ-4: 5 PSS-4: 6 Nutrition: 13 PSQI: 15 Sleep issues: Difficulty falling asleep and staying asleep. Sleeps 5-6h/night, 4h during the day. Worrying can keep her awake. Sleep aids: melatonin 3 mg +ASIM - she did not tolerate CPAP. She is very tired. Physical activity None Social history: Home: lives in [place] ( is in SNF) Work: retired at age 80 from [employer] Education: 15 years Alcohol: none Supplements: iron, D3, calcium, biotin, Vit C 500 mg, MTI Tobacco Use: Low Risk (08/11/2023) Patient History Smoking Tobacco Use: Never Smokeless Tobacco Use: Never Passive Exposure: Not on file 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 MORBID OBESITY 08/18/2007 Obstructive sleep apnea Sleep study 2003 Occlusion and stenosis of carotid artery without mention of cerebral infarction 03/09/2006 mild stenosis shown on u/s at [facility] u/s repeated 02/02/07 with no change Open fracture of tuft of distal phalanx of finger 05/06/2022 PAC (premature atrial contraction) Pulmonary embolism (HCC) Pure hypercholesterolemia Type II or unspecified type diabetes mellitus with renal manifestations, uncontrolled(250.42) Unspecified glaucoma(365.9) Unspecified pruritic disorder Current Outpatient Medications Medication Sig fluconazole (DIFLUCAN) 200 mg tablet TAKE 1 TABLET 3x per week Clobetasol Propionate (CLOBEX) 0.05 % sham Shampoo twice a week with therapeutic shampoo for itching hydrocortisone 2.5 % cream Apply twice a day to rash on face, then as needed tirzepatide (MOUNJARO) 5 mg/0.5 mL pen injector Inject 5 mg subcutaneously one time a week. metoprolol succinate ER (TOPROL XL) 25 mg 24 hr tablet Take 1 tablet by mouth once daily. calcitriol (ROCALTROL) 0.5 mcg capsule Take 1 capsule by mouth once daily. oxybutynin ER (DITROPAN XL) 10 mg 24 hr tablet take 1 tablet by mouth once daily if needed for OVERACTIVE BLADDER clobetasol (TEMOVATE) 0.05 % cream 3x per day for 2 weeks and then twice daily thereafter chlorhexidine (HIBICLENS) 4 % external liquid Wash genitale area once a day for infectious vulvitis Blood-Glucose Meter,Continuous (DEXCOM G7 STREETCAR CONDUCTOR) [facility] use to check sugars Blood-Glucose Sensor (DEXCOM G7 SENSOR) isela change every 10 days blood sugar diagnostic (ACCU-CHEK GUIDE TEST STRIPS) test strip 1 Strip three times daily. Use as instructed DX: E11.42 Lancets lancets Test blood sugar(s) 3 times daily. Dx: Other DM Code E11.42 Insulin: No DULoxetine (CYMBALTA) 20 mg capsule take 1 capsule by mouth once daily apixaban (ELIQUIS) 5 mg tab(s) Take 1 tablet by mouth twice daily. clindamycin (CLEOCIN) 300 mg capsule take 2 capsules by mouth 1 hour prior to appointment blood sugar diagnostic (ACCU-CHEK POLY PLUS TEST STRP) test strip Check sugars 3 times daily ondansetron orally disintegrating (ZOFRAN ODT) 4 mg disintegrating tablet Take 1 tablet by mouth every 6 hours as needed for nausea/vomiting. ferrous sulfate 325 mg (65 mg iron) [...] (BD POSIFLUSH) 10 mL INTRAVENOUS DIRECTED PRN FAMILY HISTORY Problem Relation Age of Onset Breast Cancer Mother cva Stroke Mother Heart Father AAA Colon Cancer Father other (leukemia) Brother REVIEW OF SYSTEMS: PSYCHIATRIC: Positive for depression, sleep difficulties PHYSICAL EXAM: VS: BP 127/79 Pulse 89 Wt 94.3 kg (207 lb 12.8 oz) BMI 34.58 kg/m General: alert and appropriate, in no distress and well-hydrated, well nourished Posture and motor behavior: normal posture and motor behavior Dress, grooming, personal hygiene: normal dress and grooming Facial expression: good eye contact Neurologic: no obvious deficit Speech: normal speech Ambulating with a walker. Mic Cognitive Assessment (MoCA) Visuospatial/Executive: 4 Namin Attention: 4 Language: 2 Abstraction: 2 Delayed Memory: 2 Orientation: 5 Education < or equal to 12 years (1 is true, 0 is false): 0 Mic Cognitive Assessment (MoCA): 22 Score of 26 or above considered normal 18-25 =mild cognitive impairment, 10-17 = moderate cognitive impairment, <10 = severe cognitive impairment LABS: Component Latest Ref Rng & Units 09/08/2022 05/18/2023 Cholesterol, Total <200 mg/dL 182 Triglyceride <150 mg/dL 125 HDL Cholesterol >39 mg/dL 60 Non HDL Cholesterol <130 mg/dL 122 Fasting Time hrs 11 VLDL Cholesterol <30 mg/dL 25 TC:HDL Ratio <5.10 3.03 LDL Cholesterol <100 mg/dL 97 LDL:HDL Ratio <2.54 1.62 Hemoglobin A1C 4.3 - 5.6 % 8.5 (H) Estimated Average Glucose mg/dL 197 TSH 0.270 - 4.200 mIU/L 1.800 Folate >4.7 ng/mL >20.0 Vitamin B12 232 - 1,245 pg/mL 704 MMA 79 - 376 nmol/L 142 Vitamin D 25 Hydroxy 31.0 - 80.0 ng/mL 43.0 ASSESSMENT & PLAN: Miriam Davenport is a 83 year old female with a pertinent PMH of type 2 diabetes, osteopenia, ASIM, obesity s/p gastric bypass in 2007 and the following modifiable risk factors of cognitive decline: type 2 diabetes, depression, physical inactivity. Other contributing factors: poor diet, untreated ASIM, sleep disturbances. Miriam Davenport would benefit from the [facility] to learn the tools to protect against cognitive decline and improve working memory. The SMA will provide education on the evidence-based aspects of a healthy lifestyle that can positively impact cognitive function (nutrition, physical activity, restorative sleep, stress management). Assessments completed in clinic today will be scanned into the medical record. (G31.84) Mild cognitive impairment (primary encounter diagnosis) Comment: MOCA Plan: CONSULT TO GERIATRICS, CONSULT TO BRAIN HEALTH & WELL[facility] Today we reviewed: Modifiable risk factors of cognitive decline Referrals: [facility] Geriatrics Successful Aging Program Lifestyle recommendations to support brain health: - Follow the MIND Diet as closely as possible. See the dietary guidelines below. - Do some form of physical activity every day, even for 5-10 minutes. The goal is to move more and sit less. See the physical activity guidelines below. - Engage in social activities as much as possible. Consider volunteering. - Play games at least 3x/week that will stimulate and challenge your brain. Brain games are available on the following websites: Woqu.com, BONESUPPORT, and agencyQ. - Practice meditation or deep breathing for a few minutes each day. You can sit quietly and focus on your breath or listen to a guided meditation on an madhavi such as [employer] Timer. - Resources provided including information on memory research at the . (G47.33) ASIM (obstructive sleep apnea) Comment: untreated Plan: She declines referral to sleep medicine and does not want to address this now. Discuss at a future visit. Return after [facility] I spent 65 minutes in [id number] time with the patient of which greater than 50% of the time was spent in counseling and coordination of care. Martha Germain DO, MPH Wellness and Preventive Medicine [facility] Brain Health CC: Comfort Patterson [id number] [facility] [id number] documented in this encounter [facility] 08-02-2023 History of Present illness Narrative Patient presents for B-12 injection. Denies any problems at this time. Patient instructed on any SE of medication, verbalized understanding and agreed to proceed with treatment. Tolerated injection well. Ning Mckeon LPN documented in this encounter [facility] 07-29-2023 Instructions Milla Lara RN - 07/29/2023 10:33 AM EST A/P: 83 year old female with:Diabetes, over weight - accompanied by daughter today 1. Chronic Vulvitis - ulcerated , pruritic Lichen sclerosis - Skin irritation improved 2. Chronic LSA genital and perirectal - Improved 3. Hx herpes simplex 4. Hx of damian infections 5. Diabetes II 6. Many allergies to drugs and topicals especially ointments 7. Diabetes II 8. Urinary infection/Renal calculi PLAN: - Vaginal culture today for yeast and bacteria, further treatment pending results - Continue Diflucan 200mg 3x weekly, discussed that this regimen may change pending the results of the culture - will refill today - Continue clobetasol cream to genital area and perirectal area as needed for itching (patient got refilled with local MD, denied need for refills today) - Continue to use ice packs, frozen peas, or cold water to reduce itching. Continue bidet usage at home - Continue hibclens wash to genital area - Photo for tracking purposes taken today with patient's permission - Will prescribe Clobex shampoo today for scalp - Recommend patient apply Hydrocortisone 2.5 % (prescribed today) to spot treat Seborrheic Keratosis on face, can treat with cyrosurgery if they remain at the next appointment - Photographed today for tracking purposes Follow-up 3-4 months Radha Walters MD documented in this encounter [facility] 07-29-2023 History of Present illness Narrative Established patient LV: 03/04/22 CC: LSA genital LSA and infectious vulvitis, diabetic 2 HPI: 83 year old female- morbidly obese Lost 60 lbs on new diabetic drug and diabetes better controlled Mounajaro 5 once a week injectable 1) Lichen Sclerosus - genital area vulva and perianal ulcerated - No change to condition - frequent itching, not all the time, mostly at night - Still using Hibiclens which helps a little -has terrible itching on scalp, not new to this patient, uses head and shoulders sometimes, was treated in the past but does not recall medication Current Treatment: - Clobetasol Cream as needed (once or twice a day-mostly when itching) - Hibiclens wash - every 2 to 3 days - Diflucan (taking MWF) Relevant past medical history: - Hx of 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 per [facility]ESS [facility] outside facility Apr 1997 MORBID OBESITY 08/18/2007 Obstructive sleep apnea Sleep study 2003 Occlusion and stenosis of carotid artery without mention of cerebral infarction 03/09/2006 mild stenosis shown on u/s at [facility] u/s repeated 02/02/07 with no change Open fracture of tuft of distal phalanx of finger 05/06/2022 PAC (premature atrial contraction) Pulmonary embolism (HCC) Pure hypercholesterolemia Type II or unspecified type diabetes mellitus with renal manifestations, uncontrolled(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 She also developed severe pain after taking Etodolac that was excruciating Lipitor [Atorvastat* Niacin Unknown Niaspan [Niacin (An* Nsaids (Non-Steroid* Intolerance Was told to avoid all NSAID's due to bypass surgery Penicillins Rash Pravachol [Pravasta* Sulfa (Sulfonamide * Rash Tape [Adhesive Tape* Itching Zetia [Ezetimibe] Zocor [Simvastatin] Current Outpatient Medications Medication Sig tirzepatide (MOUNJARO) 5 mg/0.5 mL pen injector Inject 5 mg subcutaneously one time a week. metoprolol succinate ER (TOPROL XL) 25 mg 24 hr tablet Take 1 tablet by mouth once daily. calcitriol (ROCALTROL) 0.5 mcg capsule Take 1 capsule by mouth once daily. oxybutynin ER (DITROPAN XL) 10 mg 24 hr tablet take 1 tablet by mouth once daily if needed for OVERACTIVE BLADDER clobetasol (TEMOVATE) 0.05 % cream 3x per day for 2 weeks and then twice daily thereafter chlorhexidine (HIBICLENS) 4 % external liquid Wash genitale area once a day for infectious vulvitis Blood-Glucose Meter,Continuous (DEXCOM G7 STREETCAR CONDUCTOR) [facility] [place] Blood-Glucose Sensor (DEXCOM G7 SENSOR) isela change every 10 days blood sugar diagnostic (ACCU-CHEK GUIDE TEST STRIPS) test strip 1 Strip three times daily. Use as instructed DX: E11.42 Lancets lancets Test blood sugar(s) 3 times daily. Dx: Other DM Code E11.42 Insulin: No DULoxetine (CYMBALTA) 20 mg capsule take 1 capsule by mouth once daily apixaban (ELIQUIS) 5 mg tab(s) Take 1 tablet by mouth twice daily. clindamycin (CLEOCIN) 300 mg capsule take 2 capsules by mouth 1 hour prior to appointment blood sugar diagnostic (ACCU-CHEK POLY PLUS TEST STRP) test strip Check sugars 3 times daily ondansetron orally disintegrating (ZOFRAN ODT) 4 mg disintegrating tablet Take 1 tablet by mouth every 6 hours as needed for nausea/vomiting. ferrous sulfate 325 mg (65 mg iron) [...] Take 1 capsule by mouth once daily. fluconazole (DIFLUCAN) 200 mg tablet TAKE 1 TABLET 3x per week Clobetasol Propionate (CLOBEX) 0.05 % sham Shampoo twice a week with therapeutic shampoo for itching hydrocortisone 2.5 % cream Apply twice a day to rash on face, then as needed Current Facility-Administered Medications Medication Dose Route Frequency cyanocobalamin 1,000 mcg injection 1,000 mcg INTRAMUSCULAR q 1 MONTH perflutren lipid microspheres 1.3 mL in NaCl (PF) 0.9% 10 mL injection (DEFINITY) INTRAVENOUS DIRECTED PRN sodium chloride 0.9 % (flush) 10 mL (BD POSIFLUSH) 10 mL INTRAVENOUS DIRECTED PRN Family History: - No psoriasis or atopy - No autoimmune diseases Social: - No tobacco, EtOh, or recreational drug use ROS: Denies fever/chills, joint pain, abdominal pain, headaches, cough. Medications: Current Facility-Administered Medications on File Prior to Visit Medication cyanocobalamin 1,000 mcg injection Culture rare yeast And Moderate Klebsiella pneumoniaeAbnormal Culture, Wound Few Normal urogenital floraAbnormal Gram Stain Rare Gram negative bacilliAbnormal Gram Stain Rare Polymorphonuclear leukocytesAbnormal PE: Gen: Well appearing female in NAD Neuro: Alert, pleasant, cooperative- obese Focused exam of the scalp and genitals and erirectal area notable for: Genital exam photo today for tracking - White patches on labia minora, introitus area and ulcerations and perirectal area - improved - Moderate erythema No discharge Using Nexxus shampoo A/P: 83 year old female with:Diabetes, over weight - accompanied by daughter today 1. Chronic Vulvitis - ulcerated , pruritic Lichen sclerosis - Skin irritation improved 2. Chronic LSA genital and perirectal - Improved 3. Hx herpes simplex 4. Hx of damian infections 5. Diabetes II 6. Many allergies to drugs and topicals especially ointments 7. Diabetes II 8. Urinary infection/Renal calculi PLAN: - Vaginal culture today for yeast and bacteria, further treatment pending results - Continue Diflucan 200mg 3x weekly, discussed that this regimen may change pending the results of the culture - will refill today - Continue clobetasol cream to genital area and perirectal area as needed for itching (patient got refilled with local MD, denied need for refills today) - Continue to use ice packs, frozen peas, or cold water to reduce itching. Continue bidet usage at home - Continue hibclens wash to genital area - Photo for tracking purposes taken today with patient's permission - Will prescribe Clobex shampoo today for scalp - Recommend patient apply Hydrocortisone 2.5 % (prescribed today) to spot treat Seborrheic Keratosis on face, can treat with cyrosurgery if they remain at the next appointment - Photographed today for tracking purposes Follow-up 3-4 months The documentation for this note was completed by Milla Lara RN acting as scribe for Radha Walters MD. July 29, 2023 10:17 AM. All documentation from previous visit of 03/04/22 was copied and pasted, documentation has been reviewed and edited as necessary for today's visit. I agree with the Chief Complaint, ROS, and Past Histories independently gathered by the clinical senior technical support engineer and the remaining scribed note accurately describes my personal service to the patient. I spent a total of 30 minutes on the date of the service which included preparing to see the patient, [id number] patient care, completing clinical documentation, obtaining and/or reviewing separately obtained history, performing a medically appropriate examination, counseling and educating the patient/family/caregiver, ordering medications, tests, or procedures, independently interpreting results (not separately reported), and communicating results to the patient/family/caregiver. Radha Walters MD Cultures and smear Gram neg organisms Rare yeast I am dispensing Hibiclens for wash and rinse the genital area- later consider Bactrim. Radha Walters MD' 08/11/23 documented in this encounter [facility] 07-21-2023 History of Present illness Narrative Radiology Service Progress Note PATIENT NAME: Miriam Davenport DATE OF SERVICE: July 21, 2023 TIME: 3:33 PM PATIENT IDENTITY VERIFICATION COMPLETED USING TWO (2) IDENTIFIERS: Name and Date of confirmed by patient verbally. FALL SCREENING: Has the patient had 2 falls in the last year or 1 fall with injury or currently using an Ambulatory Assistive Device (Walker, Cane, Wheelchair, Crutches, etc.)? No PATIENT GENDER DATA: Female. status: : No status: NO. PATIENT RELEVANT IMPLANT DATA REVIEWED: Not Applicable PATIENT PRESENTS WITH AN IMPLANTABLE OR ATTACHED ENVIRONMENTAL SERVICES FLOOR TECH: No RADIOLOGY DEPARTMENT: Mammography PERIPHERAL IV DATA: Not applicable SIGNED BY: RT Chioma(R) July 21, 2023 3:33 PM documented in this encounter [facility] 07-08-2023 History of Present illness Narrative Images from the original note were not included. Reason for Consultation: DM Type 2 Referring Physician: SELF HISTORY OF PRESENT ILLNESS Ms. Davenport is a 83 year old female presenting here today for a follow up of DM Type 2 and hyperglycemia. Patient was last seen by Dr. Nassar via distance health visit 03/30/2023. She is here with her daughter Hardy. As I recall, she was initially diagnosed with diabetes in 1990. She was on glimepiride which was stopped due to low blood sguars. Metformin caused diarrhea. HbA1c increased from 7% 12/2022 to 8.5% 05/18/2023. Tirzepatide was started 09/2022 and increased from 2.5 mg to 5 mg 06/04/2023 (Rx by Dr Bourgeois as Dr Nassar was out of the office). Weight decreased from 229 lbs 09/2022 to 209 lbs today. Eye exam November 2022: no retinopathy Known complications include: microalbuminuria Exacerbating factors include: obesity Current diabetes regimen is as follows: Tirzepatide 5 mg once a week on Wednesday she is checking her blood glucose 1-2 times daily. she does not bring a log book today for review. LDE Blood Sugar Frequency: 114-135 mg/dL after lunch 160-170 mg/dL Hypoglycemia frequency: no Hypoglycemia awareness: Yes Regarding symptoms of hyperglycemia, she is not experiencing any symptoms such as polyuria, polydipsia, nocturia or rapid weight loss or blurry vision. 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 MORBID OBESITY 08/18/2007 Obstructive sleep apnea Sleep study 2003 Occlusion and stenosis of carotid artery without mention of cerebral infarction 03/09/2006 mild stenosis shown on u/s at [facility] u/s repeated 02/02/07 with no change Open [...] Topics Alcohol use: No Drug use: No Allergies As of Date: 07/08/2023 Allergen Noted Reaction ASA [SALICYLATES] 01/20/2005 Anaphylaxis CEPHALEXIN 05/11/2022 Rash and Diarrhea HYDROCODONE 08/15/2022 Itching METFORMIN 09/14/2017 GI Upset ADHESIVE 05/21/2022 Itching ASPIRIN 05/21/2022 Anaphylaxis AVAPRO [IRBESARTAN] 01/20/2005 Swelling BYETTA [EXENATIDE] 11/02/2006 CRESTOR [ROSUVASTATIN CALCIUM] 02/03/2005 EGGS [EGG] 03/03/2017 Diarrhea ERYTHROMYCIN 09/14/2007 Myalgia ETODOLAC 08/12/2010 Contraindication-Medical Surgical LIPITOR [ATORVASTATIN] 01/20/2005 NIACIN 02/03/2005 Unknown NIASPAN [NIACIN (ANTIHYPERLIPIDEM*02/03/2005 NSAIDS (NON-STEROIDAL ANTI-INFLAM*08/12/2010 Intolerance PENICILLINS 01/20/2005 Rash PRAVACHOL [PRAVASTATIN SODIUM] 02/03/2005 SULFA (SULFONAMIDE ANTIBIOTICS) 01/20/2005 Rash TAPE [ADHESIVE TAPE-SILICONES] 06/27/2023 Itching ZETIA [EZETIMIBE] 02/03/2005 ZOCOR [SIMVASTATIN] 02/03/2005 Fully Assessed 07/08/2023 Current Outpatient Medications Medication Sig Dispense Refill metoprolol succinate ER (TOPROL XL) 25 mg 24 hr tablet Take 1 tablet by mouth once daily. 90 tablet 3 calcitriol (ROCALTROL) 0.5 mcg capsule Take 1 capsule by mouth once daily. 90 capsule 4 tirzepatide (MOUNJARO) 5 mg/0.5 mL pen injector Inject 5 mg subcutaneously one time a week. 2 mL 1 oxybutynin ER (DITROPAN XL) 10 mg 24 hr tablet take 1 tablet by mouth once daily if needed for OVERACTIVE BLADDER 90 tablet 1 fluconazole (DIFLUCAN) 200 mg tablet TAKE 1 TABLET 3x per week 32 tablet 3 clobetasol (TEMOVATE) 0.05 % cream 3x per day for 2 weeks and then twice daily thereafter 60 g 4 chlorhexidine (HIBICLENS) 4 % external liquid Wash genitale area once a day for infectious vulvitis 473 mL 11 Blood-Glucose Meter,Continuous (DEXCOM G7 STREETCAR CONDUCTOR) [facility] to [facility] (Patient not taking: Reported on 06/25/2023) 1 Each 0 Blood-Glucose Sensor (DEXCOM G7 SENSOR) isela change every 10 days (Patient not taking: Reported on 06/25/2023) 9 Each 3 blood sugar diagnostic (ACCU-CHEK GUIDE TEST STRIPS) test strip 1 Strip three times daily. Use as instructed DX: E11.42 100 Each 11 Lancets lancets Test blood sugar(s) 3 times daily. Dx: Other DM Code E11.42 Insulin: No 100 Each 11 DULoxetine (CYMBALTA) 20 mg capsule take 1 capsule by mouth once daily 90 capsule 2 apixaban (ELIQUIS) 5 mg tab(s) Take 1 tablet by mouth twice daily. 60 tablet 11 clindamycin (CLEOCIN) 300 mg capsule take 2 capsules by mouth 1 hour prior to appointment blood sugar diagnostic (ACCU-CHEK POLY PLUS TEST STRP) test strip Check sugars 3 times daily 100 Each 11 ondansetron orally disintegrating (ZOFRAN ODT) 4 mg disintegrating tablet Take 1 tablet by mouth every 6 hours as needed for nausea/vomiting. (Patient not taking: Reported on 05/14/2023) 12 tablet 0 ferrous sulfate 325 mg (65 mg iron) tablet Take 1 tablet by mouth once daily. (Patient not taking: Reported on 06/17/2023) 30 tablet 0 diphenhydramine HCl (BENADRYL ORAL) Take 1 tablet by mouth as needed (At bedtime). cholecalciferol, vitamin D3, (VITAMIN D3 ORAL) Take by mouth once daily. acetaminophen (TYLENOL) 500 mg tablet Take 500 mg by mouth daily at bedtime. COMPOUNDED PRESCRIPTION ONE TOUCH ULTRA 2 TEST STRIPS TESTING 2 TIMES DAILY INSULIN NO DX E11.65 100 Strip 12 CALCIUM CITRATE/VITAMIN D3 (CALCIUM CITRATE + D ORAL) Take 1 capsule by mouth three times daily. BIOTIN 2,500 MCG TAB Take 2,500 mcg by mouth once daily. 0 ascorbic acid(VITAMIN C 500 MG TAB) Take 500 mg by mouth once daily. 0 0 pnv/iron,carb/om-3/fa/fat 1(PRE- MULTIVITAMINS WITH MINERALS 27 MG-1 MG-300 MG CAP) Take 1 capsule by mouth once daily. 0 0 Current Facility-Administered Medications Medication Dose Route Frequency Provider Last Rate Last Admin cyanocobalamin 1,000 mcg injection 1,000 mcg INTRAMUSCULAR q 1 MONTH Josefa Caputo APRN.REMOTE SENSING RESEARCH SCIENTIST 1,000 mcg at 07/05/23 1336 perflutren lipid microspheres 1.3 mL in NaCl (PF) 0.9% 10 mL injection (DEFINITY) INTRAVENOUS DIRECTED PRN Maykel Whitfield, DO sodium chloride 0.9 % (flush) 10 mL (BD POSIFLUSH) 10 mL INTRAVENOUS DIRECTED PRN Maykel Whitfield, DO REVIEW OF SYSTEMS General: no fever, chills, 20 lbs weight loss since 09/2022 when tirzepatide was started Skin: no rashes, pruritis but has dry skin Cardiac: denies chest pain, heart palpitations or orthopnea Pulmonary: denies wheezing, productive cough or exertional dyspnea Gastrointestinal: denies nausea, emesis, abdominal pain, diarrhea or constipation PHYSICAL EXAMINATION BP 145/82 Pulse 101 Wt 94.8 kg (209 lb) BMI 34.78 kg/m2 General appearance: Well appearing, alert, in no acute distress, well-hydrated, well nourished. Skin: Skin color, texture, turgor normal Eyes: Anicteric sclera. Pupils are equally round. Extraocular movements are intact. Oropharynx: Lips, mucosa, and tongue normal, teeth and gums normal, oropharynx normal Neck: Supple, no adenopathy; thyroid symmetric Heart: RRR Abdomen: soft, non-tender. Extremities: No edema Neuro: non-focal DATA Component Latest Ref Rng & Units 09/08/2022 12/30/2022 05/18/2023 Hemoglobin A1C 4.3 - 5.6 % 8.0 (H) 8.5 (H) Estimated Average Glucose mg/dL 183 197 Hemoglobin A1C (POCT) 4.2 - 5.6 % 7.0 (A) Component Latest Ref Rng & Units 05/18/2023 Vitamin D 25 Hydroxy 31.0 - 80.0 ng/mL 43.0 Component Latest Ref Rng & Units 05/18/2023 Cholesterol, Total <200 mg/dL 182 Triglyceride <150 mg/dL 125 HDL Cholesterol >39 mg/dL 60 Non HDL Cholesterol <130 mg/dL 122 Fasting Time hrs 11 VLDL Cholesterol <30 mg/dL 25 TC:HDL Ratio <5.10 3.03 LDL Cholesterol <100 mg/dL 97 LDL:HDL Ratio <2.54 1.62 Component Latest Ref Rng & Units 05/18/2023 Protein, Total 6.3 - 8.0 g/dL 7.1 Albumin 3.9 - 4.9 g/dL 3.6 (L) Calcium 8.5 - 10.2 mg/dL 9.3 Bilirubin, Total 0.2 - 1.3 mg/dL 0.3 Alkaline Phosphatase 34 - 123 U/L 133 (H) AST 13 - 35 U/L 9 (L) ALT 7 - 38 U/L 8 Glucose 74 - 99 mg/dL 185 (H) BUN 7 - 21 mg/dL 22 (H) Creatinine 0.58 - 0.96 mg/dL 0.60 Sodium 136 - 144 mmol/L 137 Potassium 3.7 - 5.1 mmol/L 4.0 Chloride 97 - 105 mmol/L 103 CO2 22 - 30 mmol/L 21 (L) Anion Gap 9 - 18 mmol/L 13 eGFR >=60 mL/min/1.73m 90 Component Latest Ref Rng & Units 05/18/2023 WBC 3.70 - 11.00 k/uL 9.14 RBC 3.90 - 5.20 m/uL 4.59 Hemoglobin 11.5 - 15.5 g/dL 13.1 Hematocrit 36.0 - 46.0 % 41.2 MCV 80.0 - 100.0 fL 89.8 MCH 26.0 - 34.0 pg 28.5 MCHC 30.5 - 36.0 g/dL 31.8 RDW-CV 11.5 - 15.0 % 14.6 Platelet Count 150 - 400 k/uL 326 MPV 9.0 - 12.7 fL 11.2 Neut% % 67.7 Abs Neut (ANC) 1.45 - 7.50 k/uL 6.18 Lymph% % 20.8 Abs Lymph 1.00 - 4.00 k/uL 1.90 [place]% % 8.5 Abs [place] <0.87 k/uL 0.78 Eosin% % 2.0 Abs Eosin <0.46 k/uL 0.18 Baso% % 0.5 Abs Baso <0.11 k/uL 0.05 Immature Gran % % 0.5 IMMATURE GRANS (ABS) <0.10 k/uL 0.05 NRBC /100 WBC 0.0 Absolute nRBC <0.01 k/uL <0.01 DTYPE Auto Component Latest Ref Rng & Units 05/18/2023 Creatinine, Ur Random (UCRR) 20.0 - 300.0 mg/dL 93.0 Albumin, Urine Random mg/L 58.8 Albumin/Creat Ratio <30 mg/g 63 (H) IMPRESSION: Ms. 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 HbA1c increased from 7.0% 12/2022 to 8.5% 05/18/2023. Tirzepatide was started 09/2022 and increased from 2.5 mg to 5 mg 06/04/2023. Patient reports adequate fasting glucose levels between 114-135 mg/dL and after lunch 160-170 mg/dL. RECOMMENDATIONS: 1. Glycemic control: Target HbA1C is less than 7.0% per ADA guidelines. This patient is not at target. At this point I will continue her diabetes regimen: Tirzepatide 5 mg once a week on Wednesday. The patient was reminded to check her blood glucose twice daily before meals or 2 hours after meals and to record the data in a logbook. She was advised to bring their logbook to each office visit. I recommended at least 150 minutes per week of moderate physical activity, such as walking and to reduce carbohydrates and overall caloric intake. 2. Hypertension/BP control: BP goal for patients with diabetes is 130/80. This patient is at target on their current regimen (Metoprolol). 3. Lipids: Target LDL cholesterol in patients with diabetes is less than 100, less than 70 if patient has overt CVD. Several studies have shown cardiovascular benefits of statin therapy in all patients with diabetes over age 40 with at least 1 CVD risk factor. This patient's LDL is under 100 mg/dL 04/2023, no statin (has hx statin intolerance). 4. Antiplatelet therapy: Low dose antiplatelet therapy is recommended for patients with diabetes at increased cardiovascular risk. This includes most men over age 50 and most women over age 60. This patient is on antiplatelet therapy Eliquis for history of PE. 5. Nephropathy screening: Annual measurement of urine albumin excretion is recommended in patients with diabetes. This patient has microalbuminuria and is not on BEBETO-I or ARB therapy. She has hx vaginal yeast infections; relative contraindication to SGLT 2 inhibitor. 6. Ophthalmology: Annual dilated eye exams are recommended for patients with type 1 and type 2 diabetes. This patient was advised annual eye exam. 7. Obesity: continue GLP-1/GIP agonist. 20 lbs weight loss since 09/2022. Rajiv Walker MD documented in this encounter [facility] 07-07-2023 Miscellaneous Notes Called pt and notified orders are placed. Gave her scheduling # again to set up the appt. Orders placed, I included an ultrasound just incase that is needed. Please call patient and let her know that orders are placed. Thanks Pt calling in as she states she had her routine mammogram a few weeks ago and just got a letter in the mail stating she needed further testing and that she would need to contact her provider to place the orders. Pt given phone # to call and schedule. Orders pended for diagnostic mammogram (unsure if pt needs ultrasound order placed as well). Please call pt when orders are signed. documented in this encounter [facility] 06-25-2023 Instructions Nhi De La Torre APRN.CNP - 06/25/2023 2:59 PM EST Continue the same medications for now. Stress test and echo were both normal - you have a strong heart and no evidence of decreased blood flow to the heart muscle. I will send a new Rx for the Metoprolol to [facility]. Follow up in 1 year. documented in this encounter [facility] 06-25-2023 History of Present illness Narrative Images from the original note were not included. [facility] [place] [facility] Department of Cardiovascular Medicine SECTION OF CLINICAL CARDIOLOGY OUTPATIENT VISIT DATE June 25, 2023 OUTPATIENT VISIT TYPE ESTABLISHED Elements of this note, including but not limited to HPI, ROS, Physical Exam, Assessment and Plan were copied and pasted from previous office visit notes completed within our department. Updates have been made where appropriate/noted and reflect current exam and medical decision making from date of this visit. Patient Name: Miriam Davenport : 1940 PRIMARY CARE PHYSICIAN: Guillaume Dominguez MD CHIEF COMPLAINT: Patient presents with: Follow Up: Room 12 We don't know why we are here. ECHO, ECG, Stress results Interval Hx: Ms. Davenport comes for a follow up visit. The last office visit visit with Dr. Hsieh was 01/11/2023. Patient with 2 hospitalizations or ER visits since last OV. Came to OV with her daughter who is assisting with her care. Since last office visit patient has been feeling ok. No chest pain No palps Or racing heart Feels dizzy with position changes ? Water intake Sleep is broken - wakes her She does not use CPAP - not interested in ASIM No orthopnea No PND Random pain in her chest that is relieved by warm water - this has been going on for years No syncope No falls Good appetite - 50/50 cooks at home vs eats out. Does not watch Na intake - does no added Na No LE edema No GI/ bleeding Taking Metoprolol 1 whole tablet in the AM. Not checking BP at home. Gets around the house OK IMPRESSION/PLAN: FIELD - stable since last OV - Etiology unclear with likely contribution by decontioning - MPI 12/2022: no ischemia or infarct - Echo 01/2023: EF 60%, Grade I left ventricular diastolic dysfunction. - mildly volume up on exam Frequent PACs - Asymptomatic - Continue BB DM II - Controlled S/p PE, multiple - [facility] 2020 with recurrence after stopping AC per patient - continue On apixaban 5 mg BID ASIM - No tx declines CPAP - likely contributing to her SOB I spent a total of 30 minutes on the date of the service which included preparing to see the patient, [id number] patient care, completing clinical documentation, performing a medically appropriate examination, counseling and educating the patient/family/caregiver, ordering medications, tests, or procedures, and communicating results to the patient/family/caregiver. Thank you very much for allowing me to assist in the care of Miriam Davenport. The above information was discussed at length and detail with the patient who verbalized an understanding of the plan and was given ample opportunity to ask questions. The appropriate follow up has been arranged. I have advised the patient to contact me if any questions/problems arise prior to the follow up. Nhi De La Torre APRN.[facility] Cardiology Nurse Practitioner Section of Regional Cardiology [facility] Dept of Cardiovascular Medicine [facility] [place] [address] [place] [address] Office Office June 25, 2023 2:41 PM This note was partially generated using [employer] voice recognition system and may contain errors related to that system including grammar, punctuation, spelling, and words that may be inappropriate. CARDIAC STUDIES: LV Ejection Fraction (%) Date Value 02/10/2023 60 10/17/2021 61 08/08/2014 56 06/21/2007 60 Last ECHO Result Conclusion ECHO Collected: 02/10/2023 9:23 AM (Final result) Impression: CONCLUSIONS: - Technically difficult exam due to body habitus. - Exam indication: Shortness of Breath - The left ventricle is normal in size. Left ventricular systolic function is normal. EF = 60 5% (2D biplane) Grade I left ventricular diastolic dysfunction. - The right ventricle is normal in size. Right ventricular systolic function is normal. - Exam was compared with the prior echocardiographic exam performed on 10/17/2021, no significant change. * * * Final * * * Last EKG Result Conclusion ECG COMPLETE Collected: 01/11/2023 8:40 AM (Final result) Impression: NORMAL SINUS RHYTHM POOR R WAVE PROGRESSION MODERATE VOLTAGE CRITERIA FOR LVH, MAY BE NORMAL VARIANT Confirmed by MD KIMBERLY, QARAB ([id number]) on 01/13/2023 3:53:16 PM LABS: Sodium (mmol/L) Date Value 05/18/2023 137 09/08/2022 136 02/12/2021 138 10/07/2020 138 Potassium (mmol/L) Date Value 05/18/2023 4.0 09/08/2022 3.8 02/12/2021 3.9 10/07/2020 4.1 BUN (mg/dL) Date Value 05/18/2023 22 09/08/2022 11 04/27/2022 13 01/16/2022 16 02/12/2021 14 10/07/2020 13 03/17/2019 20 06/21/2018 18 Creatinine (mg/dL) Date Value 05/18/2023 0.60 09/08/2022 0.50 04/27/2022 0.71 01/16/2022 0.62 02/12/2021 0.57 10/07/2020 0.55 03/17/2019 0.67 06/21/2018 0.51 Magnesium (mg/dL) Date Value 09/08/2022 1.8 11/16/2019 1.9 10/12/2019 1.9 Hemoglobin (g/dL) Date Value 05/18/2023 13.1 09/08/2022 9.7 02/12/2021 13.2 10/10/2020 12.9 No results found for: PROBNP No results found for: HSTNT Cholesterol, Total (mg/dL) Date Value 05/18/2023 182 10/07/2020 180 Total Cholesterol, Nonfasting (mg/dL) Date Value 10/10/2020 182 HDL Cholesterol (mg/dL) Date Value 05/18/2023 60 10/07/2020 56 HDL Cholesterol, Nonfasting (mg/dL) Date Value 10/10/2020 58 Triglyceride (mg/dL) Date Value 05/18/2023 125 10/07/2020 152 Triglycerides, Nonfasting (mg/dL) Date Value 10/10/2020 129 LDL Cholesterol (mg/dL) Date Value 05/18/2023 97 10/07/2020 94 LDL Cholesterol, Nonfasting (mg/dL) Date Value 10/10/2020 98 TSH Date Value 09/08/2022 1.800 mIU/L 11/16/2019 1.500 uU/mL PT INR (no units) Date Value 03/17/2019 1.0 There were no tests performed for review. PHYSICAL EXAMINATION: Vitals: BP 118/68 Pulse 72 Ht 165.1 cm (5' 5) Wt 95.5 kg (210 lb 8.6 oz) SpO2 98% BMI 35.04 kg/m General: Well appearing, in no acute distress. Skin: No clubbing, no cyanosis. Eyes: Extra ocular movements intact Oropharynx: Teeth in good repair. Neck: No jugular venous distention, no carotid bruits, carotids have a normal upstroke, no palpable thyromegaly. Lungs: Clear to auscultation bilaterally, no wheezing or rhonchi. Heart: Regular rhythm, PMI not displaced, S1, S2 normal, no S3, no S4, no heaves, no rub and no murmur. Abdomen: Soft, nontender, bowel sounds normal, no palpable organomegaly, no bruits. Extremities: 1+ peripheral edema . Grade 2/4 distal pulses bilaterally. Neuro: Oriented to person, place and time, alert, cooperative, gait coordinated. 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 MORBID OBESITY 08/18/2007 Obstructive sleep apnea Sleep study 2003 Occlusion and stenosis of carotid artery without mention of cerebral infarction 03/09/2006 mild stenosis shown on u/s at [facility] u/s repeated 02/02/07 with no change Open fracture of tuft of distal phalanx of finger 05/06/2022 PAC (premature atrial contraction) Pulmonary embolism (HCC) Pure hypercholesterolemia Type II or unspecified type diabetes mellitus with renal manifestations, uncontrolled(250.42) Unspecified glaucoma(365.9) Unspecified pruritic disorder SOCIAL HISTORY: Social History Tobacco Use Smoking status: Never Smokeless tobacco: Never Vaping Use Vaping Use: Never used Substance Use Topics Alcohol use: No Drug use: No FAMILY HISTORY: FAMILY HISTORY Problem Relation Age of Onset Breast Cancer Mother cva Stroke Mother Heart Father AAA Colon Cancer Father other (leukemia) Brother I have confirmed and edited as necessary, the PFSH and ROS obtained by others. Nhi De La Torre, LEAD MINER.REMOTE SENSING RESEARCH SCIENTIST CURRENT MEDICATIONS: Current Outpatient Medications Medication Sig calcitriol (ROCALTROL) 0.5 mcg capsule Take 1 capsule by mouth once daily. tirzepatide (MOUNJARO) 5 mg/0.5 mL pen injector Inject 5 mg subcutaneously one time a week. oxybutynin ER (DITROPAN XL) 10 mg 24 [...] take 1 capsule by mouth once daily apixaban (ELIQUIS) 5 mg tab(s) Take 1 [...] times daily diphenhydramine HCl (BENADRYL ORAL) Take 1 tablet [...] mouth once daily. Blood-Glucose Meter,Continuous (DEXCOM G7 STREETCAR CONDUCTOR) [facility] to [facility] (Patient not taking: Reported on 06/25/2023) Blood-Glucose Sensor (DEXCOM G7 SENSOR) isela change every 10 days (Patient not taking: Reported on 06/25/2023) ondansetron orally disintegrating (ZOFRAN ODT) 4 mg disintegrating tablet Take 1 tablet by mouth every 6 hours as needed for nausea/vomiting. (Patient not taking: Reported on 05/14/2023) ferrous sulfate 325 mg (65 mg iron) tablet Take 1 tablet by mouth once daily. (Patient not taking: Reported on 06/17/2023) Current Facility-Administered Medications Medication Dose Route Frequency cyanocobalamin 1,000 mcg injection 1,000 mcg INTRAMUSCULAR q 1 MONTH perflutren lipid microspheres 1.3 mL in NaCl (PF) 0.9% 10 mL injection (DEFINITY) INTRAVENOUS DIRECTED PRN sodium chloride 0.9 % (flush) 10 mL (BD POSIFLUSH) 10 mL INTRAVENOUS DIRECTED PRN documented in this encounter [facility] 05-14-2023 History of Present illness Narrative This note was created using [employer]. Subjective Miriam Davenport is a 83 year [...] down to [address]. [address] 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 Blood-Glucose Meter,Continuous (DEXCOM G7 STREETCAR CONDUCTOR[place] [facility] [place] sugars (Patient not taking: [...] Height as of 01/11/23: 162.6 cm (5' 4). Weight as of this encounter: 96.6 kg [...] know if decide wants referral for [facility] evaluation 2. Vitamin D deficiency E55.9 [...] ARTIS SCREENING 6. Encounter for immunization Z23 Medigram COVID-19 VACCINE (2022- [place]) AGE 12+ YR [...] noted above, will pursue consult to [facility] for cognitive testing, etc. Guillaume Dominguez MD documented in this encounter [facility] 05-04-2023 History of Present illness Narrative Patient presents for B-12 injection. Denies any problems at this time. Patient instructed on any SE of medication, verbalized understanding and agreed to proceed with treatment. Tolerated injection well. Ning Mckeon LPN documented in this encounter [facility] 03-30-2023 Instructions Su Nassar MD - [...] same dose of Mounjaro 2) return to [place] as planned in May 2023 Su Nassar MD documented in this encounter [facility] 03-30-2023 History of Present illness Narrative Virtual Visit utilizing both audio and video components FaceTime I have communicated my name and active licensure. The patient's identity and physical location were verified at the time of this visit. Either the patient or their legal food products sales representative has been informed of the risks [...] 2023 Su Nassar MD Data Review daughter Hardy has iPhone=Von ([phone]) History Diabetes type 2, dx 1990 last eye exam November, had cataract surgery, no DM eye disease December 2022, though has early macular degen no hx NC, stroke, claudication, intolerant of statins, niacin and welchol does have hx PE so is on chronic anticoag sugars fasting 140-160 by fingerstick, mid-afternoon, usually 180, never over 200 Mounjaro helps with sugars, weight stable. daughter Hardy stopped glimepiride because of low sugars Drug history: *Invokana: yeast inf, has these even without this Rx *Byetta: ineffective *Metformin: diarrhea, has stopped Vitamin D deficiency, on calcium 500 mg (+400U vitD) 2x daily, plus calcitriol 0.5 mcg daily Nephrolithiasis s/p lithotripsy, stent Low back and hip pain s/p injections x 3. Context: 1) s/p COVID vaccine Thryve 2) daughter Hardy now helps with her health care ROS 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 per PUBLIC ADDRESS SERVICER outside facility Apr 1997 MORBID OBESITY 08/18/2007 Obstructive sleep apnea Sleep study 2003 Occlusion and stenosis of carotid artery without mention of cerebral infarction 03/09/2006 mild stenosis shown on u/s at [facility] u/s repeated 02/02/07 with no change Open [...] rash. Tape [Other] documented in this encounter [facility] 03-18-2023 Miscellaneous Notes Okayed Patient last visit with PCP 02/02/23 Follow up appointment scheduled 05/14/23 Rayne Winter Ma documented in this encounter [facility] 03-04-2023 History of Present illness Narrative Patient presents for B-12 injection. Denies any problems at this time. Patient instructed on any SE of medication, verbalized understanding and agreed to proceed with treatment. Tolerated injection well. Ning Mckeon LPN documented in this encounter [facility] 02-19-2023 Miscellaneous Notes Patient reports she [...] Shea Chisholm RN documented in this encounter [facility] 02-04-2023 History of Present illness Narrative Patient presents for B-12 injection. Denies any problems at this time. Patient instructed on any SE of medication, verbalized understanding and agreed to proceed with treatment. Tolerated injection well. Rechecked BP today d/t very low reading at office visit 02/02/23. Patient states that she feels better. Ning Mckeon LPN documented in this encounter [facility] 02-02-2023 History of Present illness Narrative LUIS MANUEL Davenport is a 82 year old female here today for a check up on her medical problems. Chief Complaint Patient presents with: Recheck Immunizations: Flu vaccination HPI Mriiam Davenport is a 82 year old female [...] mouth once daily. 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 Osteopenia - 04/20/2008 Comment: 2012 t score -1.7 at [facility] Contact Dermatitis and Other Eczema, Due to Unspecified Cause - 12/07/2007 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 Josefa Caputo APRN-HIMA documented in this encounter [facility] 02-02-2023 Miscellaneous Notes Patient scheduled for nurse visit 02/04/23 to receive B-[address] new administration order at this time. Ning Mckeon LPN documented in this encounter [facility] 01-28-2023 History of Present illness Narrative [...] POST EXAM PIV STATUS: Discontinued PROCEDURE TYPE: CO Stress: 16.0 mCi [id number] was administered IV for Rest Imaging at 08:10 by . 46.4 mCi [id number] was administered IV for Stress Imaging at 09:17 by . PATIENT DISCHARGED TO: Ambulatory patient, left CO department area. A Diagnostic radioactive procedure has taken place, with no further precautions necessary other than routine body substance precautions. More information regarding radiation safety can be found using this link: [email or web address] SIGNATURE: HELENA Julien PATIENT NAME: Miriam Davenport DATE: January 28, 2023 TIME: 9:31 AM PAGER/CONTACT #: documented in this encounter [facility] 01-27-2023 Miscellaneous Notes Spoke with patient regarding reminder for stress test tomorrow and given instructions. documented in this encounter [facility] 01-13-2023 Miscellaneous Notes Form rec'd from [facility] asking directions for pt's anticoagulant. Pcp noted pt can hold anticoagulant 2 days prior to extraction then resume day after extraction. This was faxed back to the number on the form. documented in this encounter [facility] 01-11-2023 History of Present illness Narrative Images from the original note were not included. [facility] Heart and Vascular [place] Lonnie Brandon Department of Cardiovascular Medicine SECTION OF REGIONAL CARDIOLOGY Consultation requested by Guillaume Dominguez MD for an opinion regarding iMriam Davenport. 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 per PUBLIC ADDRESS SERVICER outside facility Apr 1997 MORBID OBESITY 08/18/2007 Obstructive sleep apnea Sleep study 2003 Occlusion and stenosis of carotid artery without mention of cerebral infarction 03/09/2006 mild stenosis shown on u/s at [facility] u/s repeated 02/02/07 with no change Open [...] Medications Medication Sig Blood-Glucose Meter,Continuous (DEXCOM G7 STREETCAR CONDUCTOR) [facility] [place] sugars Blood-Glucose Sensor (DEXCOM [...] 96/58 Pulse 77 Ht 162.6 cm (5' 4) Wt 95.8 kg (211 lb 4.8 oz) [...] JVD, carotids well felt, no bruits. CARDIAC: [place] palpable in the 5th intercostal space mid [...] patient event(s). Isolated SVEs were frequent (17.7%, [id number]), SVE Couplets were occasional (4.2%, 16398), and SVE Triplets were occasional (1.8%, 53837). Isolated VEs were rare (<1.0%), VE Couplets [...] - Exam was compared with the prior CC echocardiographic exam performed on 08/08/2014 (Stress). LABS: [...] Continue BB DM II Controlled S/p PE, [facility] 2020 with recurrence after stopping AC per [...] contact me if there are any questions. Maykel Whitfield, , FACC, FCCP, FACOI Maykel Whitfield DO, FACC, FCCP, FACOI CC: Guillaume Dominguez [address] [place] [address] documented in this encounter [facility] 01-08-2023 Miscellaneous Notes Patient's daughter notified. Geno Franco RN Rx e-scripted to preferred pharmacy Please notify daughter Hardy at [phone] Message has been routed to provider and he has 3 days to respond. Nhi Patino MA January 07, 2023 12:26 PM Patients daughter Hardy calling in stating that she lives 6 hours from her mother. Hardy is requesting a phone call when the RX is signed and sent to pharmacy. Hardy states that she has to pick it up for her mother, then set it up Hardy [phone] Thank you Veda Cardoza The DME company said that the CGM order should go to [facility]. Order pended below Maia Llanos RN Patients daughter Hardy calling in stating that Dexcom needs to be sent to [facility]. Hardy is asking for a return call to discuss Dexcom Please call Hardy back at [phone] Thank you documented in this encounter [facility] 01-04-2023 History of Present illness Narrative Patient presents for B-12 injection. Denies any problems at this time. Patient instructed on any SE of medication, verbalized understanding and agreed to proceed with treatment. Tolerated injection well. Ning Mckeon LPN documented in this encounter [facility] 12-30-2022 Instructions Su Nassar MD - 12/30/2022 10:32 AM EDT Assessment / Plan Assessment: 1) Diabetes type 2, sugar control overall better on Mounjaro, but having lows down to sugars in the 70s. Has not had any injuries from the hypoglycemia, but this is dangerous . I'll ask her (as I did before) with help of her daughter (Hardy) to back off of the glimepiride to [...] Von Nassar MD documented in this encounter [facility] 12-30-2022 History of Present illness Narrative Assessment / Plan Assessment: 1) Diabetes type 2, sugar control overall better on Mounjaro, but having lows down to sugars in the 70s. Has not had any injuries from the hypoglycemia, but this is dangerous . 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 pnv/iron,carb/om-3/fa/fat 1(PRE-JMIY MULTIVITAMINS WITH MINERALS 27 MG-1 MG-300 MG [...] rash. Tape [Other] documented in this encounter [facility] 12-25-2022 Miscellaneous Notes Received voicemail 12-25-22 at 9:49 AM Hi this is Shelley Davenport calling [phone]. I have a procedure scheduled for December [...] me I'd really appreciate it. Thank you. Bye. Call back to patient to advise that she should hold Eliquis 48 hours prior to procedure. Reviewed pre procedure instructions. Patient is diabetic but does not take insulin. Advised that patient should check sugar and call surgery scheduling if sugar is above 200. If above 250, procedure would not be performed. Patient verbalizes understanding. Offered to send pre procedure instructions via [employer] but she states she has had trouble logging in. documented in this encounter [facility] 12-04-2022 Miscellaneous Notes [facility] pharmacy called and states needs a script [...] Earline Morales LPN documented in this encounter [facility] 11-06-2022 History of Present illness Narrative Episode Visit Count: 13 Therapist That Will Accept/Oversee The Plan Of Care: Nhi Iverson Start of Care Date: 08/18/22 Onset Date: 05/31/22 Plan of Care Certification Date: 11/06/22 Next Certification Due Date: 11/06/22 [facility] PHYSICAL THERAPY DISCONTINUANCE OF CARE PLAN OF CARE UPDATE: Assessment: Miriam Davenport is discontinued from Physical Therapy services due to Patient/Client declining further intervention.. Patient was seen for 13 visits from Start of Care Date: 08/18/22 to 11/06/2022 and treatment included: Therapeutic exercise, Self-retirement management, and Gait training. Goals for Episode of Care: created on 08/18/22 through 09/29/22 updated 09/17/22 Goals updated on 09/29/2022 through 11/03/22 Goals updated on 11/06/2022. [place] in home exercise program. -- PARTIALLY MET [...] deviations identified in the objective section above. Self-Fpc Management: 1: *discussed how lumbar flexion increases [...] Nhi Iverson PT documented in this encounter [facility] 11-03-2022 Miscellaneous Notes Patient scheduled with Oralia Garcia CNP in office on 11/06/2022 [place] patient was in to the office today. [...] pain is persistent? documented in this encounter [facility] 11-03-2022 History of Present illness Narrative Patient presents for B-12 injection. Denies any problems at this time. Patient instructed on any SE of medication, verbalized understanding and agreed to proceed with treatment. Tolerated injection well. Ning Mckeon LPN documented in this encounter [facility] 10-27-2022 History of Present illness Narrative [...] low back and left hip causing pain. 03/09 in the afternoon and evening. 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 Anxiety State - 07/28/2007 Pernicious Anemia - 04/13/2007 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 - 03/29/2007 Eating Disorder, Unspecified - 03/29/2007 Occlusion and Stenosis of Carotid Artery Without Mention of Cerebral Infarction - 03/09/2006 Comment: mild stenosis shown on u/s at [facility] u/s repeated 02/02/07 with no change Calculus [...] Josefa Caputo APRN-HIMA documented in this encounter [facility] 10-12-2022 Miscellaneous Notes Okayed MALGORZATA 08/15/22 NOV 10/27/22 Patient phones requesting refills as follows: Requested Prescriptions Pending Prescriptions Disp Refills apixaban (ELIQUIS) 5 mg tab(s) 60 tablet 11 Sig: Take 1 tablet by mouth twice daily. Please review and advise. Lety Lam documented in this encounter [facility] 10-12-2022 History of Present illness Narrative [...] walker without symptoms. Pain: Pain Pain Level: (right now I feel fine.) Pain Location: Low Back/Lumbar Spine - Left, [...] facilitated with verbal, visual, and tactile cueing. Self-Fpc Management: 1: *strongly encouraged pt. to bring [...] Nhi Iverson PT documented in this encounter [facility] 10-02-2022 Miscellaneous Notes Letter generated and sent via fax at this time to patient's PCP for approval to hold Eliquis 2 days PRIOR to procedure documented in this encounter [facility] 09-29-2022 History of Present illness Narrative Patient presents for B-12 injection. Denies any problems at this time. Patient instructed on any SE of medication, verbalized understanding and agreed to proceed with treatment. Tolerated injection well. Ning Mckeon LPN documented in this encounter [facility] 09-26-2022 Miscellaneous Notes Patient scheduled in December in [place] with Dr Whitfield. 1st attempt to reach patient. Left message for patient to call office to schedule sooner appointment in Cardiology per PCP. Patient can be seen in [place] by Dr Horowitz or [facility] [phone] Should be seen sooner since she has been symptomatic :Patient scheduled with Dr. Whitfield's first available consult on 01/11. Please advise if that is too far out. documented in this encounter [facility] 09-25-2022 Miscellaneous Notes Patient has been [...] [id number] Thank you Hope Delio Pss documented in this encounter [facility] 09-23-2022 Miscellaneous Notes Patient has been [...] you. Chely Erickson LPN Pharmacy verified in [facility] Patient has been identified by name and [...] Atkinson Pss \ documented in this encounter [facility] 09-23-2022 History of Present illness Narrative [...] 2022 12:04 PM documented in this encounter [facility] 09-17-2022 History of Present illness Narrative [...] created on 08/18/22 through 09/29/22 updated 09/17/22 [place] in home exercise program./ partially achieved Patient [...] Patient to be seen for Therapeutic exercise (48552), Neuromuscular re-education (80064), Manual therapy (59611), Self-retirement management (74621), Patient/Family/Caregiver Education, Gait Training (24034) PLAN FOR NEXT VISIT: Continue to work [...] house throughout the day. 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 Pain: Pain Pain Level: 4 Pain Location: [...] Veda Vital PT documented in this encounter [facility] 09-14-2022 History of Present illness Narrative [facility] Date: September 14, 2022 - 10:26 AM Chief Complaint: left lower back __ SUBJECTIVE: Ms. Davenport presents to the [facility] for a follow up appointment regarding chronic [...] is not currently receiving medications through the [facility]. 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 09/14/2022 by Moraima Montelongo MD Narcotic Agreement reviewed and signed?: N/A on September 14, 2022 Urine Panel: No results found for: UQCANN, UQBNZL, GPW4GQC, UQAMPH, UQMAMP, UQBUPRE, UQNORBUP, UQMTHD, UQEDDP, UQTRAM, [...] family/social history. I have confirmed ROS findings. Moraima Montelongo MD cc: Dr. Guillaume Dominguez MD cc: No referring provider defined for this encounter. Phone: N/A Fax: Results of consultation to be transmitted via electronic medical record for those providers who practice within [facility] or with access to [place] via MD Connect, or via letter. 1. [...] your PCP/referring physician. documented in this encounter [facility] 09-11-2022 Miscellaneous Notes Patient returned call [...] team to assist documented in this encounter [facility] 09-10-2022 History of Present illness Narrative [...] Time Minutes (timed/untimed): 45 Lucia Rojas PTA/Veda Vitla PT documented in this encounter [facility] 09-03-2022 History of Present illness Narrative [...] Veda Vital PT documented in this encounter [facility] 09-01-2022 History of Present illness Narrative [...] Veda Vital PT documented in this encounter [facility] 09-01-2022 History of Present illness Narrative Patient presents for B-12 injection. Denies any problems at this time. Patient instructed on any SE of medication, verbalized understanding and agreed to proceed with treatment. Tolerated injection well. Ning Mckeon LPN documented in this encounter [facility] 08-26-2022 Miscellaneous Notes Spoke with patient on phone. Aware the office visit from 08/15/22 is closed and she can access via [employer]. Patient requesting copy be printed and sent to her, address checked and correct. Patient inquiring as to whether Cardiology Consult could be scheduled sooner than December, her daughter worried about her waiting that long. Patient may agree to go to [place] if can schedule sooner. Patient aware staffing [...] front desk associate and call her for pick up man. documented in this encounter [facility] 08-19-2022 History of Present illness Narrative [...] of Care: created on 08/18/22 through 09/29/22 [place] in home exercise program. Patient will decrease [...] Planned: 8 Planned Treatment Interventions: Therapeutic exercise (10647), Neuromuscular re-education (86493), Manual therapy (67458), Self-retirement management (79531), Gait Training (54651), Patient/Family/Caregiver Education PLAN FOR NEXT VISIT: Will [...] Demonstration TREATMENT: PT Treatment Interventions: Therapeutic Exercise, Self-Fpc Management Evaluation Therapeutic Exercise: 1: seated pink [...] and visual cuing. Patient education as noted. Self-Fpc Management: 1: instruction in use of ice [...] Veda Vital PT documented in this encounter [facility] 08-15-2022 Instructions Guillaume Dominguez MD - 08/15/2022 11:48 AM EDT To help prevent itching can take Claritin (loratadine) 10mg tablets 1 to 2 pills daily. Okay to take Tylenol up to 3000 mg per day (1 to 2 pills at a time; up to every 4 to 6 hours). Labs ordered so may do anytime (unless get call that Dr. Whitfield can get you in next week, then can decide if he wants to get other labs in addition before going to lab) documented in this encounter [facility] 08-15-2022 History of Present illness Narrative This note was created using [employer]. Subjective Miriam Davenport is a 82 year [...] Sinus issues with allergies acting up. Noemy [place] at night helps. Does have occasion wheezing--new. 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 Weight as of this encounter: 108.9 kg [...] the date of the service which included [id number] patient care, completing clinical documentation, obtaining and/or reviewing separately obtained history, performing a medically appropriate examination, counseling and educating the patient/family/caregiver, ordering medications, tests, or procedures, communicating with other HCPs (not separately reported), and independently interpreting results (not separately reported). Guillaume Dominguez MD documented in this encounter [facility] 08-12-2022 Miscellaneous Notes Spoke to pt and scheduled There is already a PT order in from Dr. Montelongo, please call patient to schedule Arelis Monahan APRN.HIMA Patient calls and state that she was given physical therapy referral to [facility] by pain management. Patient states that she went to [facility] and did not like physical therapy. Patient states that she would like to go to [place] for Physical Therapy. Patient asking if provider can write a referral to physical therapy so that she can go to [place]? Patient also reports that she has been [...] Tabitha Madrid RN documented in this encounter [facility] 08-12-2022 Miscellaneous Notes Opened in Error documented in this encounter [facility] 08-07-2022 Miscellaneous Notes Pharmacy request refi Last OV 06/10/22 Next 10/23/22 Requested Prescriptions Pending Prescriptions Disp Refills blood sugar diagnostic (ACCU-CHEK POLY PLUS TEST STRP) test strip 100 Each 11 Sig: Check sugars 3 times daily Please review and advise. Katy Fowler RN documented in this encounter [facility] 08-04-2022 Miscellaneous Notes PT location contacted at this time Fax number to send order: [phone] PT order sent via fax at this time per patient's request Addended by: ORALIA GARCIA on: 08/04/2022 03:02 PM Modules accepted: Orders PT order signed off Addended by: MAGDA MORAN RN on: 08/04/2022 11:39 AM Modules accepted: Orders Patient contacted at this time All questions and concerns answered appropriate Patient states she had improvement with injection but finds that her legs feel very weak Discussed muscle atrophy to low back and how patient should participate in formal physical therapy Patient agrees to participate in physical therapy Requesting order to be sent to [facility] in [place] Instructed patient to wait until tomorrow to call for an appointment as this RN will obtain order and fax it to [facility] per patient's request PT order pended to [...] patient to discuss documented in this encounter [facility] 08-04-2022 History of Present illness Narrative Patient presents for B-12 injection. Denies any problems at this time. Patient instructed on any SE of medication, verbalized understanding and agreed to proceed with treatment. Tolerated injection well. Ning Mckeon LPN documented in this encounter [facility] 08-03-2022 Miscellaneous Notes Printed and mailed to patient's home address. Can we please print and resend this one too? Thanks! Pt called in and lost the letter/prescription for the handicap sticker that was given to her on 03-21-22. Requesting a new one be mailed to her. Marquita Mclaughlin LPN documented in this encounter [facility] 07-07-2022 History of Present illness Narrative Patient presents for B-12 injection. Denies any problems at this time. Patient instructed on any SE of medication, verbalized understanding and agreed to proceed with treatment. Tolerated injection well. Ning Mckeon LPN documented in this encounter [facility] 07-07-2022 History of Present illness Narrative This note was created using [employer]. 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 PUBLIC ADDRESS SERVICER outside facility Apr 1997 [facility] 08/18/2007 Obstructive sleep apnea Sleep study 2003 Occlusion and stenosis of carotid artery without mention of cerebral infarction 03/09/2006 mild stenosis shown on u/s at [facility] u/s repeated 02/02/07 with no change Open [...] Guillaume Dominguez MD documented in this encounter [facility] 07-02-2022 Miscellaneous Notes Wednesday07/04/22 is not [...] Marquita Mclaughlin LPN documented in this encounter [facility] 06-23-2022 Miscellaneous Notes Patient contacted office [...] time Closing encounter documented in this encounter [facility] 06-18-2022 Miscellaneous Notes Called and spoke [...] possible side effects. Please advise. Contact Information [phone] Thank you Veda Cardoza documented in this encounter [facility] 06-18-2022 Miscellaneous Notes Called patient and [...] Tabitha Madrid RN documented in this encounter [facility] 06-11-2022 Instructions Maykel Patel Jr., MD - 06/11/2022 11:52 AM EST Counseled patient on increasing fluids, avoiding salt, avoiding caffeine, avoiding large portions of animal fat/meats at one time and increasing citrates in diet. documented in this encounter [facility] 06-11-2022 Procedure note CYSTOSCOPY PROCEDURE NOTE: Miriam Davenport is a 82 year old female who presents with left side ureteral stent for a cystoscopy, left side ureteral stent removal Pt ID verified with patient: Yes Fire risk assessment done Procedure verified with patient: Yes Procedure confirmed with physician and senior technical support engineer: Yes UNIVERSAL PROTOCOL / SAFETY CHECKLIST Procedure [...] (optional for EMERGENT procedures): No specimen collected. Maykel Patel Jr, MD Pre procedure dx: left [...] ASSESSMENT/PLAN: 3 months Kub prior Stone prevention Maykel Patel Jr, MD documented in this encounter [facility] 06-03-2022 Miscellaneous Notes Received voicemail 06-03-22 at 3:24 PM. Hi this is Shelley Davenport calling, [phone]. My birthday is [birth year]. I'm calling about my back. It's very very painful and I really need to have help with it. Thank you very much. Violete. Forwarded to Dr. Montelongo's clinical staff. JESSICA Nunes, RN June 03, 2022 4:27 PM documented in this encounter [facility] 05-29-2022 Miscellaneous Notes Pt added to schedule for stent removal. Will call when home from hospital to confirm. Natalya MCINTYRE [facility] or 05/29/22 Cysto stent removal in office 1-2 weeks documented in this encounter [facility] 05-28-2022 Miscellaneous Notes OK, wonderful. Patient aware. Closing. Show up to surgery Patient calling and she was wanted to see what Urine Culture result from 05-26-2022 showed. Aware of this result: Culture No growth (<1,000 CFU/ml) Resulting Agency: [facility] I advised that Surgery still on for tomorrow and she just was checking to make sure. If she needs to do anything else please advise. documented in this encounter [facility] 05-12-2022 History of Present illness Narrative This note was created using [employer]. Subjective Miriam Davenport is a 82 year old female. Patient presents with: ER F/U SUBJECTIVE: Miriam Davenport is a 82 year old year old lady here today for [facility] follow up appointment for review of medical conditions for middle ring finger fracture. 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 documented in this encounter [facility] 05-06-2022 Miscellaneous Notes Seen in today. [...] any other symptoms? NO Protocols used: Finger [id number] documented in this encounter [facility] 05-06-2022 Instructions Janae Sandoval APRN.HIMA - 05/06/2022 4:12 PM EST ASSESSMENT/PLAN: 1. Crushing injury of right middle finger, initial encounter - ICD9: 927.3, ICD10: S67.192A (primary diagnosis) - XR DIGIT GENERAL 3V FRONTAL/LAT/OBL RIGHT Radiologist IMPRESSION: Acute, comminuted fracture of the third distal phalanx subungual tuft. Personnel Psychologist: KOLE Transcribe Date/Time: May 06 2022 4:13P [...] Discussed expected course of illness Janae Sandoval APRN.REMOTE SENSING RESEARCH SCIENTIST FRACTURES GENERAL INFORMATION: A fracture is a [...] wet, it can be dried with a general studies program chair. 4. Do not put pressure on any [...] under the cast. 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 ^Disp: 0^Rfl: 0 pnv/iron,carb/om-3/fa/fat 1(PRE- MULTIVITAMINS WITH MINERALS 27 MG-1 [...] of the third distal phalanx subungual tuft. Personnel Psychologist: KOLE Transcribe Date/Time: May 06 2022 4:13P [...] Discussed expected course of illness Janae Sandoval APRN.REMOTE SENSING RESEARCH SCIENTIST documented in this encounter [facility] 05-04-2022 History of Present illness Narrative Patient presents for B-12 injection. Denies any problems at this time. Patient instructed on any SE of medication, verbalized understanding and agreed to proceed with treatment. Tolerated injection well. Ning Mckeon LPN documented in this encounter [facility] 04-29-2022 History of Present illness Narrative [facility] Date: April 29, 2022 - 8:24 AM Chief Complaint: left sided back pain __ SUBJECTIVE: Ms. Davenport presents to the [facility] for a follow up appointment regarding left [...] is currently receiving medications (tizanidine) through the [facility]. 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 04/29/2022 by Moraima Montelongo MD Narcotic Agreement reviewed and signed?: N/A on April 29, 2022 Urine Panel: No results found for: UQCANN, UQBNZL, FXD0QVW, UQAMPH, UQMAMP, UQBUPRE, UQNORBUP, UQMTHD, UQEDDP, UQTRAM, [...] family/social history. I have confirmed ROS findings. Moraima Montelongo MD cc: Dr. Guillaume Dominguez MD cc: No referring provider defined for this encounter. Phone: N/A Fax: Results of consultation to be transmitted via electronic medical record for those providers who practice within [facility] or with access to [place] via MD Connect, or via letter. documented in this encounter [facility] 04-28-2022 History of Present illness Narrative PULM FUNCTION SMARTBLOCK: Provider: Guillaume Dominguez MD Assisting Tech: KELSI Carias Spirometry: 1 LV - Box: 1 documented in this encounter [facility] 04-27-2022 History of Present illness Narrative This note was created using Canv[employer]. 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 Weight as of this encounter: 112 kg [...] Lymph 1.00 - 4.00 k/uL 2.06 1.82 [place]% % 8.2 7.7 Abs [place] <0.87 k/uL 0.81 0.81 [place]% % 1.2 [...] (diabetes mellitus), type 2 with neurological complications ([facility]) E11.49 COMP METABOLIC PANEL HGB A1C 9. [...] (BMI) of 39.0 to 39.9 in adult ([facility]) E66.01 Z68.39 Weight has trended down though up after giving.Keep up efforts at healthier diet and try to increase activity--planning to go to [place] for exercise 14. History of Jordin-en-Y gastric bypass Z98.84 COMP METABOLIC PANEL CBC IRON + TIBC FERRITIN BLD FOLATE SERUM VITAMIN B12 BLOOD HGB A1C Above issues addressed with patient. Patient involved in shared decision making for management of medical issues. History and medications reviewed. [facility] updated as needed Refills and/or prescriptions taken care of and meds adjusted as indicated after reviewed history, exam and labs. Health Maintenance reviewed. Updated record and/or ordered tests as recorded. Encouraged on efforts at healthy diet and regular exercise and adequate sleep. Guillaume Dominguez MD documented in this encounter [facility] 04-10-2022 Miscellaneous Notes Called patient and scheduled. Patient left voicemail 04/09/2022 at 1257 Patient states she is S/P RFA 14 days and is still having significant pain This RN recommends patient to schedule follow up with Dr. Montelongo to discuss care Will forward to clerical team to assist with scheduling follow up with Dr. Montelongo documented in this encounter [facility] 04-08-2022 History of Present illness Narrative Radiology Service Progress Note PATIENT NAME: Miriam Davenport DATE OF SERVICE: April 08, 2022 TIME: 12:24 PM PATIENT IDENTITY VERIFICATION COMPLETED USING TWO (2) IDENTIFIERS: Name and Date of confirmed by patient verbally. FALL SCREENING: Has the patient had 2 falls in the last year or 1 fall with injury or currently using an Ambulatory Assistive Device (Walker, Cane, Wheelchair, Crutches, etc.)? No PATIENT GENDER DATA: Female. status: : No status: NO. PATIENT RELEVANT IMPLANT DATA REVIEWED: Yes RADIOLOGY DEPARTMENT: General X-ray: Exam(s) Completed: Abdomen X-Ray: Abdomen PERIPHERAL IV DATA: Not applicable SIGNED BY: RT Bola(R) April 08, 2022 12:24 PM documented in this encounter [facility] 04-06-2022 History of Present illness Narrative Patient presents for B-12 injection. Denies any problems at this time. Patient instructed on any SE of medication, verbalized understanding and agreed to proceed with treatment. Tolerated injection well. Ning Mckeon LPN documented in this encounter [facility] 03-27-2022 Miscellaneous Notes Handicap Plachi mailed to pt. Marquita Mclaughlin LPN Rx [...] Anne Jennings RN documented in this encounter [facility] 03-24-2022 Miscellaneous Notes Requester: Patient Patients [...] No need to notify patient. [id number] Isabel Brothers Pss documented in this encounter [facility] 03-19-2022 Miscellaneous Notes Called patient in regards to message below. Message was sent to patient via [employer] on 03/10/2022, but was not read. I [...] it use for documented in this encounter [facility] 03-11-2022 History of Present illness Narrative SUBJECTIVE: Miriam Davenport presents to [facility] for a follow up [...] which included preparing to see the patient, [id number] patient care, completing clinical documentation, performing a medically appropriate examination, and ordering medications, tests, or procedures. The above plan and management options were discussed at length with patient. Patient is in agreement with the above and verbalized understanding. 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 I spent a total of 25 minutes on the date of the service which included preparing to see the patient, [id number] patient care, completing clinical documentation, obtaining and/or [...] Radha Walters MD documented in this encounter [facility] 03-02-2022 History of Present illness Narrative Patient presents for B-12 injection. Denies any problems at this time. Patient instructed on any SE of medication, verbalized understanding and agreed to proceed with treatment. Tolerated injection well. Pt to also receive COVID booster. Ning Mckeon LPN documented in this encounter [facility] 02-27-2022 Miscellaneous Notes Patient left voicemail 02/26/2022 Patient states that she had sacroiliac block with Dr. Montelongo on 02/17/2022 Patient states by the the evening of 02/20/2022, her pain was back Will need to obtain percentage of improvement during the time it was working as the local anesthetic wore of by the evening of 02/20/2022 documented in this encounter [facility] 02-16-2022 Miscellaneous Notes Patient contacted at this time Patient states she is having chest pain for the last 10 minutes or so. Similar to when she found out she had a blood clot last time Patient instructed to proceed to the ER Patient agrees and will be going to [facility] Patient to contact office if she needs to cancel procedure for tomorrow 02/17/2022 Patient called to report that she stopped taking Eliquis in preparation for her procedure tomorrow, but is now experiencing subtle chest pain. Transferred patient to triage nurse line. Also copying Dr. Montelongo and clinical staff to this encounter. Please advise, Awilda Tate documented in this encounter [facility] 02-10-2022 Instructions Guillaume Dominguez MD - [...] some veggies in. documented in this encounter [facility] 02-10-2022 History of Present illness Narrative This note was created using [employer]. 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 PUBLIC ADDRESS SERVICER outside facility Apr 1997 MORBID OBESITY 08/18/2007 Obstructive sleep apnea Sleep study 2003 Occlusion and stenosis of carotid artery without mention of cerebral infarction 03/09/06 mild stenosis shown on u/s at [facility] u/s repeated 02/02/07 with no change Pure [...] 112/68 Pulse 82 Ht 165.1 cm (5' 5) Wt 111.6 kg (246 lb) BMI 40.94 [...] Lymph 1.00 - 4.00 k/uL 2.06 1.82 [place]% % 8.2 7.7 Abs [place] <0.87 k/uL 0.81 0.81 [place]% % 1.2 [...] Guillaume Dominguez MD documented in this encounter [facility] 02-10-2022 History of Present illness Narrative Patient here for B12 injection and requested flu vaccine as well. Patient tolerated both injections. documented in this encounter [facility] 02-05-2022 Miscellaneous Notes Patient contacted via telephone to schedule injection. Patient re-scheduled for: Feb 17 Hold the following medication(s): - eliquis for 48 hours prior to injection Patient verbalized understanding with no additional questions or concerns at this time. Patient called into the office of Dr. Moraima Montelongo and would like to reschedule her procedure appointment as soon as possible. Patient can be reached at [phone]. Thank you. Miriam Garcia Pss documented in this encounter [facility] 02-04-2022 Miscellaneous Notes Patient notified Typically we recheck iron and CBC after taking iron supplement for two months. Those results will determine how long she will need to stay on it. I went ahead and ordered the repeat lab tests Arelis Monahan APRN.HIMA Patient calls and is asking when does provider want her to get iron labs retested? Patient just recently started on iron pill. Patient has been on them for over a week and she does feel a little bit better. Patient asking how long should she take iron pills? Please review and advise, Tabitha Madrid RN documented in this encounter [facility] 02-04-2022 Miscellaneous Notes Pt called back She is unable to get transportation for tomorrows procedure plus she feels she is getting sick She would like to cancel and reschedule Please advise Received voicemail 02-04-22 at 8:14 AM. Good morning this is [...] so please let me know. Thank you. Bye. Call back to patient. Advised that she [...] 2022 9:45 AM documented in this encounter [facility] 01-29-2022 Miscellaneous Notes Patient scheduled for nurse visit 02/06/22 to receive B-[address]. [address] new administration order at this time. Ning Mckeon LPN documented in this encounter [facility] 01-19-2022 Instructions Comfort Patterson APRN.NANNETTE - 01/19/2022 3:15 PM EDT Take one iron pill daily, take with food. 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 History of ASIM, not treating arlene notes can not tolerate a mask on [...] mouth once daily. 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 per PUBLIC [employer]DRESS SERVICER outside facility Apr 1997 MORBID OBESITY 08/18/2007 Obstructive sleep apnea Sleep study 2003 Occlusion and stenosis of carotid artery without mention of cerebral infarction 03/09/06 mild stenosis shown on u/s at [facility] u/s repeated 02/02/07 with no change Pure [...] in dosing 5mg BID indefinitely Comfort Patterson APRN.VENTILATION MECHANIC Medical Decision Making: Problems: Moderate: 1+ chronic illnesses with change Data: Unique test(s) ordered: 1 Risk: Moderate: Drug management Medical Decision Making Level: 4 - Moderate documented in this encounter [facility] 01-05-2022 History of Present illness Narrative Patient presents for B-12 injection. Denies any problems at this time. Patient instructed on any SE of medication, verbalized understanding and agreed to proceed with treatment. Tolerated injection well. Ning Mckeon LPN documented in this encounter [facility] 12-17-2021 Instructions Sasha Hurley APRN.HIMA - 12/17/2021 2:27 PM EDT keflex for 7 days Tylenol/ibuprofen as needed for discomfort AZO otc Increase hydration -Follow up with PCP or return to clinic if symptoms not improving in 3 days or if you develop any new (or worsening) symptoms such as fever, chills or back pain go to ER. documented in this encounter [facility] 12-17-2021 History of Present illness Narrative Subjective The history is provided by the patient. No language asst was used. 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 per PUBLIC ADDRESS SERVICER outside facility Apr 1997 MORBID OBESITY 08/18/2007 Obstructive sleep apnea Sleep study 2003 Occlusion and stenosis of carotid artery without mention of cerebral infarction 03/09/06 mild stenosis shown on u/s at [facility] u/s repeated 02/02/07 with no change Pure hypercholesterolemia Type II or unspecified type diabetes mellitus with renal manifestations, uncontrolled(250.42) Unspecified glaucoma(365.9) Unspecified pruritic disorder I have confirmed and edited as necessary, the [facility] Review of Systems Constitutional: Negative for chills [...] (primary diagnosis) acute - UA positive for jarrett esterase, hematuria and nitrates - Send urine [...] detail warranting prompt ER evaluation. Sasha Hurley APRN.CNP Medical Decision Making: Problems: Moderate: Acute illness with systemic symptoms Risk: Moderate: Drug management Medical Decision Making Level: 4 - Moderate documented in this encounter [facility] 12-15-2021 Miscellaneous Notes Patient notified of [...] Marquita Mclaughlin LPN documented in this encounter [facility] 12-04-2021 Miscellaneous Notes Patient returning call from Isabel, is requesting a call back at [phone]. Patient states she will not be home [...] Isabel Orlando RN documented in this encounter [facility] 11-03-2021 History of Present illness Narrative Patient presents for B-12 injection. Denies any problems at this time. Patient instructed on any SE of medication, verbalized understanding and agreed to proceed with treatment. Tolerated injection well. Ning Mckeon LPN documented in this encounter [facility] 11-03-2021 Nurse Note EVENT MONITOR DISPOSABLE PATCH INSTRUCTIONS Patient Name: Miriam Davenport [facility] Number: [id number] Skin prepped and cleansed with alcohol Patch secured to prepped area Monitor Activated Serial #: [id number] Patient Instructed: 1.) Prescribed order timeframe 2.) Bathing guidelines 3.) Usage of event button and diary documentation 4.) Return of monitor at the end of prescribed order 5.) Call with problems [phone] or [phone] ext. [phone] Patient expresses a good understanding of instructions Gifty Singh documented in this encounter [facility] 11-03-2021 History of Present illness Narrative [...] 124/86 Pulse 81 Ht 167.6 cm (5' 6) Wt 113.6 kg (250 lb 8 oz) [...] -- PROBLEM LIST: PACs TSH WNL PE 2018 - on Eliquis: iron def by labs . Hct WNL. Recent fall : episode of lightheadedness around 3am today and fell while going to sit on the toilet. Landed mcfp on the toilet and scraped her left [...] exam performed on 08/08/2014 (Stress). stress TTE 2014: Exercise Test Summary: Pre: HR BP Comment [...] y/o referred to the EP clinic at [place] for frequent PACs. Patient presents with no complaints. There is a report of significant FIELD - however the patient attributes this to her weight and lack of conditioning. She is unaware of the SVE. Review of her EKGs available in [facility] suggests frequent SVE developed around 2019 - [...] may have occurred. Gamaliel Alegre MD Pager: [phone] Office: [phone] I personally examined the patient and repeated [...] medical regimen Referring Physician: Guillaume Dominguez [address] [id number] Comfort Patterson [address] [phone] documented in this encounter [facility] 10-22-2021 Miscellaneous Notes Okayed MALGORZATA: 10/03/2021 [...] patient. Marline Milton documented in this encounter [facility] 10-22-2021 Miscellaneous Notes Okayed MALGORZATA: 10/03/2021 [...] pharmacy. No need to notify patient. Liz Frank Pss documented in this encounter [facility] 10-08-2021 Miscellaneous Notes Echo scheduled for 10/13/21. Cardio appt 11/03/21. Kandy Brady Ma Patient returned call and went over notes from Dr Soto and Comfort Patterson ROLL CARRIER with understanding. Patient wrote down instructions, she had already stopped the iron some time ago. Assisted with transfer to platen press operator apprentice to get Cardiology consult and ECHO set [...] labs still pending. documented in this encounter [facility] 10-07-2021 Miscellaneous Notes Called and spoke with patient. Scheduled with Dr Montelongo on 10/24/21. Patient left voicemail stating she is experiencing severe pain with her back and hip. Patient states it is hard for her to function. Patient has not been seen in office since 09/16/2020 Recommend follow up with provider documented in this encounter [facility] 10-06-2021 Miscellaneous Notes seen by Dr [...] Ellie Downing LPN documented in this encounter [facility] 10-03-2021 History of Present illness Narrative Radiology Service Progress Note PATIENT NAME: Miriam Davenport DATE OF SERVICE: October 03, 2021 TIME: 4:15 PM PATIENT IDENTITY VERIFICATION COMPLETED USING TWO (2) IDENTIFIERS: Name and Date of confirmed by patient verbally. FALL SCREENING: Has the patient had 2 falls in the last year or 1 fall with injury or currently using an Ambulatory Assistive Device (Walker, Cane, Wheelchair, Crutches, etc.)? No PATIENT GENDER DATA: Female. status: : No status: NO. PATIENT RELEVANT IMPLANT DATA REVIEWED: Yes RADIOLOGY DEPARTMENT: General X-ray: Exam(s) Completed: Chest X-Ray PERIPHERAL IV DATA: Not applicable SIGNED BY: RT Bola(R) October 03, 2021 4:15 PM documented in this encounter [facility] 10-03-2021 History of Present illness Narrative [...] going to sit on the toilet. 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 per PUBLIC ADDRESS SERVICER outside facility Apr 1997 MORBID OBESITY 08/18/2007 Obstructive sleep apnea Sleep study 2003 Occlusion and stenosis of carotid artery without mention of cerebral infarction 03/09/06 mild stenosis shown on u/s at [facility] u/s repeated 02/02/07 with no change Pure [...] Iban Soto MD documented in this encounter [facility] 09-22-2021 Miscellaneous Notes Addended by: JOSE GORDON on: 09/22/2021 11:10 AM Modules accepted: Orders Patient has been identified by name and date of : Yes Pending Prescriptions Disp Refills GABAPENTIN 300 MG CAPSULE 90 capsule 11 Sig: one in morning, two at bedtime LISSA: No RX INSTRUCTIONS: Patient aware RX will be sent to pharmacy. No need to notify patient. [facility] [phone] Jose Gordon documented in this encounter [facility] 09-22-2021 Miscellaneous Notes Patient has been [...] Tabitha Monet RN documented in this encounter [facility] 09-01-2021 History of Present illness Narrative Patient presents for B-12 injection. Denies any problems at this time. Patient instructed on any SE of medication, verbalized understanding and agreed to proceed with treatment. Tolerated injection well. Ning Mckeon LPN documented in this encounter [facility] 08-22-2021 Instructions Su Nassar MD - 08/22/2021 2:55 PM EDT Assessment / Plan Assessment: 1) Diabetes type 2, sugars going low before lunch after taking 8mg glimepiride in AM. I'll ask her to drop to 4, 2, 1mg then stop all based on if sugars <100. 2) Peripheral neuropathy, hasn't been bothering her as much, is on [id number], 1 in AM, 2 in PM. I [...] Su Nassar MD documented in this encounter [facility] 08-22-2021 Nurse Note Images from the original note were not included. documented in this encounter [facility] 08-22-2021 History of Present illness Narrative Assessment / Plan Assessment: 1) Diabetes type 2, sugars going low before lunch after taking 8mg glimepiride in AM. I'll ask her to drop to 4, 2, 1mg then stop all based on if sugars <100. 2) Peripheral neuropathy, hasn't been bothering her as much, is on [id number], 1 in AM, 2 in PM. 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 Tape [Other] documented in this encounter [facility] 01-05-2019 History of Past i llness Narrative Problem Noted Date Resolved Date Obesity, Class III, BMI >= 40 01/05/2019 History of gastric bypass 06/19/20142021 Other physical therapy 08/12/2010 2 Other postoperative infection 03/08/2009 Morbid obesity 08/18/2007 03/10/2019 Diabetes mellitus type 2, 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, without complications 01/20/2005 08/21/2021 Last Assessment & Plan: SSI AC scale 1 Carb controlled diet Hold home metformin documented as of this encounter (statuses as of 08/22/2021) [facility] History of Past illness Narrative* Problem [...] of this encounter (statuses as of 09/01/2021) [facility] History of Past illness Narrative* Problem [...] of this encounter (statuses as of 09/22/2021) [facility] History of Past illness Narrative* Problem [...] of this encounter (statuses as of 10/06/2021) [facility] History of Past illness Narrative* Problem [...] of this encounter (statuses as of 10/07/2021) [facility] History of Past illness Narrative* Problem [...] of this encounter (statuses as of 10/08/2021) [facility] of Past illness Narrative* Problem [...] of this encounter (statuses as of 10/09/2021) [facility] of Past illness Narrative* Problem [...] of this encounter (statuses as of 10/22/2021) [facility] Past illness Narrative* Problem [...] of this encounter (statuses as of 10/22/2021) [facility] Past illness Narrative* Problem [...] of this encounter (statuses as of 10/30/2021) [facility] Past [facility] Narrative* Problem [...] of this encounter (statuses as of 11/03/2021) [facility] Narrative* Problem [...] of this encounter (statuses as of 11/03/2021) [facility] Narrative* Problem [...] of this encounter (statuses as of 12/04/2021) [facility] Narrative* Problem [...] of this encounter (statuses as of 12/05/2021) [facility] Narrative* Problem [...] of this encounter (statuses as of 12/15/2021) [facility] Narrative* Problem [...] of this encounter (statuses as of 12/17/2021) [facility] Narrative* Problem [...] of this encounter (statuses as of 01/05/2022) [facility] Narrative* Problem [...] of this encounter (statuses as of 01/05/2022) [facility] Narrative* Problem [...] of this encounter (statuses as of 01/12/2022) [facility] Narrative* Problem [...] of this encounter (statuses as of 01/19/2022) [facility] Narrative* Problem [...] of this encounter (statuses as of 01/29/2022) [facility] Narrative* Problem [...] of this encounter (statuses as of 02/04/2022) [facility] Narrative* Problem [...] of this encounter (statuses as of 02/04/2022) [facility] Narrative* Problem [...] of this encounter (statuses as of 02/05/2022) [facility] Narrative* Problem [...] of this encounter (statuses as of 02/10/2022) [facility] Narrative* Problem [...] of this encounter (statuses as of 02/10/2022) [facility] Narrative* Problem [...] of this encounter (statuses as of 02/16/2022) [facility] N[facility]* Problem [...] of this encounter (statuses as of 02/27/2022) [facility] Narrative* Problem [...] of this encounter (statuses as of 03/02/2022) [facility] N[facility]* Problem [...] of this encounter (statuses as of 03/10/2022) [facility] Narrative* Problem [...] of this encounter (statuses as of 03/11/2022) [facility] Narrative* Problem [...] of this encounter (statuses as of 03/12/2022) [facility] Narrative* Problem [...] of this encounter (statuses as of 03/19/2022) [facility] Narrative* Problem [...] of this encounter (statuses as of 03/23/2022) [facility] Narrative* Problem [...] of this encounter (statuses as of 03/25/2022) [facility] Narrative* Problem [...] of this encounter (statuses as of 03/26/2022) [facility]* Problem [...] of this encounter (statuses as of 03/27/2022) [facility]* Problem [...] of this encounter (statuses as of 04/06/2022) [facility]* Problem [...] of this encounter (statuses as of 04/10/2022) [facility]* Problem [...] of this encounter (statuses as of 04/27/2022) [facility]* Problem [...] of this encounter (statuses as of 04/28/2022) [facility]* Problem [...] of this encounter (statuses as of 04/29/2022) [facility]* Problem [...] of this encounter (statuses as of 05/04/2022) [facility]* Problem [...] of this encounter (statuses as of 05/06/2022) [facility]* Problem [...] of this encounter (statuses as of 05/06/2022) [facility]* Problem [...] of this encounter (statuses as of 05/07/2022) [facility]* Problem [...] of this encounter (statuses as of 05/22/2022) [facility]* Problem [...] of this encounter (statuses as of 06/03/2022) [facility]* Problem [...] of this encounter (statuses as of 06/03/2022) [facility]* Problem [...] of this encounter (statuses as of 06/05/2022) [facility]* Problem [...] of this encounter (statuses as of 06/05/2022) [facility]* Problem [...] of this encounter (statuses as of 06/11/2022) [facility]* Problem [...] of this encounter (statuses as of 06/11/2022) [facility]* Problem [...] of this encounter (statuses as of 06/15/2022) [facility]* Problem [...] of this encounter (statuses as of 06/18/2022) [facility]* Problem [...] of this encounter (statuses as of 06/18/2022) [facility]* Problem [...] of this encounter (statuses as of 06/23/2022) [facility]* Problem [...] of this encounter (statuses as of 07/02/2022) [facility]* Problem [...] of this encounter (statuses as of 07/07/2022) [facility]* Problem [...] of this encounter (statuses as of 08/03/2022) [facility]* Problem [...] of this encounter (statuses as of 08/04/2022) [facility]* Problem [...] of this encounter (statuses as of 08/04/2022) [facility] History of Past illness Narrative* Problem [...] of this encounter (statuses as of 08/04/2022) [facility] History of Past illness Narrative* Problem [...] of this encounter (statuses as of 08/08/2022) [facility] History of Past illness Narrative* Problem [...] of this encounter (statuses as of 08/12/2022) [facility] History of Past illness Narrative* Problem [...] of this encounter (statuses as of 08/19/2022) [facility] History of Past illness Narrative* Problem [...] of this encounter (statuses as of 08/26/2022) [facility] History of Past illness Narrative* Problem [...] of this encounter (statuses as of 08/26/2022) [facility] History of Past illness Narrative* Problem [...] of this encounter (statuses as of 09/01/2022) [facility] History of Past illness Narrative* Problem [...] of this encounter (statuses as of 09/01/2022) [facility] History of Past illness Narrative* Problem [...] of this encounter (statuses as of 09/03/2022) [facility] History of Past illness Narrative* Problem [...] of this encounter (statuses as of 09/11/2022) [facility] History of Past illness Narrative* Problem [...] of this encounter (statuses as of 09/12/2022) [facility] History of Past illness Narrative* Problem [...] of this encounter (statuses as of 09/14/2022) [facility] History of Past illness Narrative* Problem [...] of this encounter (statuses as of 09/18/2022) [facility] History of Past illness Narrative* Problem [...] of this encounter (statuses as of 09/18/2022) [facility] History of Past illness Narrative* Problem [...] of this encounter (statuses as of 09/23/2022) [facility] History of Past illness Narrative* Problem [...] of this encounter (statuses as of 09/26/2022) [facility] History of Past illness Narrative* Problem [...] of this encounter (statuses as of 09/26/2022) [facility] History of Past illness Narrative* Problem [...] of this encounter (statuses as of 09/29/2022) [facility] History of Past illness Narrative* Problem [...] of this encounter (statuses as of 10/02/2022) [facility] History of Past illness Narrative* Problem [...] of this encounter (statuses as of 10/12/2022) [facility] History of Past illness Narrative* Problem [...] of this encounter (statuses as of 10/12/2022) [facility] History of Past illness Narrative* Problem [...] of this encounter (statuses as of 10/28/2022) [facility] History of Past illness Narrative* Problem [...] of this encounter (statuses as of 11/06/2022) [facility] History of Past illness Narrative* Problem [...] of this encounter (statuses as of 11/03/2022) [facility] History of Past illness Narrative* Problem [...] of this encounter (statuses as of 11/04/2022) [facility] History of Past illness Narrative* Problem [...] of this encounter (statuses as of 12/05/2022) [facility] History of Past illness Narrative* Problem [...] of this encounter (statuses as of 12/25/2022) [facility] History of Past illness Narrative* Problem [...] of this encounter (statuses as of 12/30/2022) [facility] History of Past illness Narrative* Problem [...] of this encounter (statuses as of 01/04/2023) [facility] History of Past illness Narrative* Problem [...] of this encounter (statuses as of 01/09/2023) [facility] History of Past illness Narrative* Problem [...] of this encounter (statuses as of 01/11/2023) [facility] History of Past illness Narrative* Problem [...] of this encounter (statuses as of 01/14/2023) [facility] History of Past illness Narrative* Problem [...] of this encounter (statuses as of 01/27/2023) [facility] History of Past illness Narrative* Problem [...] of this encounter (statuses as of 01/29/2023) [facility] History of Past illness Narrative* Problem [...] of this encounter (statuses as of 01/29/2023) [facility] History of Past illness Narrative* Problem [...] of this encounter (statuses as of 02/02/2023) [facility] History of Past illness Narrative* Problem [...] of this encounter (statuses as of 02/03/2023) [facility] History of Past illness Narrative* Problem [...] of this encounter (statuses as of 02/04/2023) [facility] History of Past illness Narrative* Problem [...] of this encounter (statuses as of 02/20/2023) [facility] History of Past illness Narrative* Problem [...] of this encounter (statuses as of 03/06/2023) [facility] History of Past illness Narrative* Problem [...] of this encounter (statuses as of 03/18/2023) [facility] History of Past illness Narrative* Problem [...] of this encounter (statuses as of 03/30/2023) [facility] History of Past illness Narrative* Problem [...] of this encounter (statuses as of 04/03/2023) [facility] History of Past illness Narrative* Problem [...] of this encounter (statuses as of 05/04/2023) [facility] History of Past illness Narrative* Problem [...] of this encounter (statuses as of 05/14/2023) [facility] History of Past illness Narrative* Problem [...] as of this encounter (statuses as of 06/27/2023) [facility] History of Past illness Narrative* Problem [...] as of this encounter (statuses as of 07/07/2023) [facility] History of Past illness Narrative* Problem [...] as of this encounter (statuses as of 07/07/2023) [facility] History of Past illness Narrative* Problem [...] as of this encounter (statuses as of 07/09/2023) [facility] History of Past illness Narrative* Problem [...] as of this encounter (statuses as of 07/22/2023) [facility] History of Past illness Narrative* Problem [...] as of this encounter (statuses as of 07/22/2023) [facility] History of Past illness Narrative* Problem [...] as of this encounter (statuses as of 08/02/2023) [facility] History of Past illness Narrative* Problem [...] as of this encounter (statuses as of 08/11/2023) [facility] History of Past illness Narrative* Problem [...] as of this encounter (statuses as of 08/12/2023) [facility] History of Past illness Narrative* Problem [...] as of this encounter (statuses as of 08/13/2023) [facility] History of Past illness Narrative* Problem [...] as of this encounter (statuses as of 08/13/2023) [facility] History of Past illness Narrative* Problem [...] as of this encounter (statuses as of 08/16/2023) [facility] History of Past illness Narrative* Problem [...] as of this encounter (statuses as of 08/16/2023) [facility] History of Past illness Narrative* Problem [...] as of this encounter (statuses as of 09/06/2023) [facility] History of Past illness Narrative* Problem [...] as of this encounter (statuses as of 09/17/2023) [facility] 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), 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, not stated as uncontrolled Radiculopathy of thoracic region Thoracic or lumbosacral neuritis or radiculitis, unspecified [facility]ernicious [facility]- [facility] Radiculopathy of thoracic region Thoracic or lumbosacral neuritis or radiculitis, unspecified [facility] Diagnosis Shortness of breath on exertion- Primary Shortness of breath Irregular heart beat Cardiac dysrhythmia, unspecified Fatigue, unspecified type Elevated ferritin Other abnormal blood chemistry [facility] Diagnosis Irregular heart beat- Primary Cardiac dysrhythmia, unspecified Shortness of breath on exertion Shortness of breath Fatigue, unspecified type Skin tear of left forearm without complication, initial encounter Lightheadedness Dizziness and giddiness [facility] Diagnosis 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 [facility] Diagnosis Chronic left SI joint pain- Primary Disorders of sacrum Sacroiliac joint pain Disorders of sacrum SI joint arthritis Sacroiliitis, not elsewhere classified Chronic left SI joint pain Disorders of sacrum Sacroiliac joint pain Disorders of sacrum SI joint arthritis Sacroiliitis, not elsewhere classified [facility] Diagnosis Dyspnea on exertion- Primary Other dyspnea and respiratory abnormality Chronic left SI joint pain Disorders of sacrum Sacroiliac joint pain Disorders of sacrum SI joint arthritis Sacroiliitis, not elsewhere classified [facility] Diagnosis Pernicious anemia- Primary Chronic left SI joint pain Disorders of sacrum Sacroiliac joint pain Disorders of sacrum SI joint arthritis Sacroiliitis, not elsewhere classified [facility] Diagnosis Acute UTI- Primary Urinary tract infection, site not specified Urinary frequency Glucosuria Glycosuria documented [facility]* Diagnosis Elevated ferritin- Primary Other abnormal blood chemistry [facility]* Diagnosis Pernicious anemia- Primary [facility]* Diagnosis Chronic left SI joint pain- Primary Disorders of sacrum Sacroiliac joint pain Disorders of sacrum SI joint arthritis Sacroiliitis, not elsewhere classified Chronic SI joint pain Disorders of sacrum [facility]* Diagnosis Fatigue, unspecified type- Primary Iron deficiency Iron deficiency anemia, unspecified Chronic left SI joint pain Disorders of sacrum Sacroiliac joint pain Disorders of sacrum SI joint arthritis Sacroiliitis, not elsewhere classified [facility]* Diagnosis B12 deficiency- Primary Other B-complex deficiencies Chronic left SI joint pain Disorders of sacrum Sacroiliac joint pain Disorders of sacrum SI joint arthritis Sacroiliitis, not elsewhere classified [facility]* Diagnosis Iron deficiency- Primary Iron deficiency anemia, unspecified [facility] Diagnosis Chronic left SI joint pain- Primary Disorders of sacrum Sacroiliac joint pain Disorders of sacrum SI joint arthritis Sacroiliitis, not elsewhere classified Chronic left SI joint pain Disorders of sacrum Sacroiliac joint pain Disorders of sacrum SI joint arthritis Sacroiliitis, not elsewhere classified [facility]* Diagnosis Need for influenza vaccination- Primary Need for prophylactic vaccination and inoculation against influenza Pernicious anemia Chronic left SI joint pain Disorders of sacrum Sacroiliac joint pain Disorders of sacrum SI joint arthritis Sacroiliitis, not elsewhere classified [facility] noteNo assessment information availableWKet[facility] Work Phone: Evaluation note* Diagnosis Pernicious anemia- Primary Need for vaccination Need for prophylactic vaccination and inoculation against unspecified single disease [facility]* Diagnosis Chronic left SI joint pain- Primary Disorders of sacrum documented [facility]* Diagnosis Chronic left SI joint pain- Primary Disorders of sacrum Sacroiliac joint pain Disorders of sacrum Chronic left SI joint pain Disorders of sacrum Sacroiliac joint pain Disorders of sacrum [facility]* Diagnosis 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Pruritus Unspecified pruritic disorder Candidal vulvitis Candidiasis of vulva and vagina Lichen sclerosus 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 Disorders of sacrum Sacroiliac joint pain Disorders of sacrum documented [facility]* Diagnosis Radiculopathy of thoracic region Thoracic or lumbosacral neuritis or radiculitis, unspecified Chronic left SI joint pain Disorders of sacrum Sacroiliac joint pain Disorders of sacrum [facility]* Diagnosis Fatigue, unspecified type- Primary Primary hypertension Unspecified essential hypertension Hypoalbuminemia Other disorders of plasma protein metabolism Dietary iron deficiency without anemia Other nutritional deficiency Elevated ferritin Other abnormal blood chemistry Class 3 severe obesity due to excess calories with body mass index (BMI) of 40.0 to 44.9 in adult, unspecified whether serious comorbidity present ([facility]) [facility]* Diagnosis Iron deficiency Iron deficiency anemia, unspecified documented [facility] encounter [facility]* Diagnosis Pernicious anemia- Primary documented in this encounter [facility] note* Diagnosis FIELD (dyspnea on exertion)- Primary Other dyspnea and respiratory abnormality Dietary iron deficiency without anemia Other nutritional deficiency Grade I diastolic dysfunction Chronic cough Cough Renal calculus, left Calculus of kidney Primary hypertension Unspecified essential hypertension Hypoalbuminemia Other disorders of plasma protein metabolism DM (diabetes mellitus), type 2 with neurological complications ([facility]) Type II or unspecified type diabetes mellitus with neurological manifestations, not stated as uncontrolled B12 deficiency Other B-complex deficiencies Vitamin D deficiency Unspecified vitamin D deficiency Irregular heart rhythm Cardiac dysrhythmia, unspecified Memory difficulty Memory loss Class 2 severe obesity due to excess calories with serious comorbidity and body mass index (BMI) of 39.0 to 39.9 in adult (HCC) History of Jordin-en-Y gastric bypass Bariatric surgery status Renal calculus, left Calculus of kidney [facility] Diagnosis FIELD (dyspnea on exertion) Other dyspnea and respiratory abnormality Chronic cough Cough Renal calculus, left Calculus of kidney [facility] Diagnosis FIELD (dyspnea on exertion) Other dyspnea and respiratory abnormality Chronic cough Cough Renal calculus, left Calculus of kidney [facility]* Diagnosis Lumbosacral facet joint syndrome- Primary Other symptoms referable to back Spondylolisthesis of lumbar region Acquired spondylolisthesis Spinal stenosis of lumbar region, unspecified whether neurogenic claudication present Renal calculus, left Calculus of kidney [facility]* Diagnosis Pernicious anemia- Primary Renal calculus, left Calculus of kidney documented [facility]* Diagnosis Crushing injury of right middle finger, initial encounter- Primary Open fracture of tuft of distal phalanx of finger Open fracture of distal phalanx or phalanges of hand Nausea Nausea alone Renal calculus, left Calculus of kidney [facility]* Diagnosis Finger injury, right, initial encounter- Primary Renal calculus, left Calculus of kidney [facility] Diagnosis Spinal stenosis of lumbar region, [...] region Acquired spondylolisthesis [facility]* Diagnosis Kidney stone- Primary Calculus of kidney Spinal stenosis of lumbar region, unspecified whether neurogenic claudication present Lumbar spondylosis Lumbosacral spondylosis without myelopathy Radiculopathy, lumbar region Thoracic or lumbosacral neuritis or radiculitis, unspecified Spondylolisthesis of lumbar region Acquired spondylolisthesis documented in this encounter [facility] note* Diagnosis Crushing injury of right middle finger, sequela- Primary Renal calculus, left Calculus of kidney Spinal stenosis of lumbar region, unspecified whether neurogenic claudication present Lumbar spondylosis Lumbosacral spondylosis without myelopathy Radiculopathy, lumbar region Thoracic or lumbosacral neuritis or radiculitis, unspecified Spondylolisthesis of lumbar region Acquired spondylolisthesis documented [facility] this [facility]* Diagnosis Dysuria- Primary Spinal stenosis of lumbar region, unspecified whether neurogenic claudication present Lumbar spondylosis Lumbosacral spondylosis without myelopathy Radiculopathy, lumbar region Thoracic or lumbosacral neuritis or radiculitis, unspecified Spondylolisthesis of lumbar region Acquired spondylolisthesis documented [facility]* Diagnosis Pernicious anemia- Primary Spinal stenosis of lumbar region, unspecified whether neurogenic claudication present Lumbar spondylosis Lumbosacral spondylosis without myelopathy Radiculopathy, lumbar region Thoracic or lumbosacral neuritis or radiculitis, unspecified Spondylolisthesis of lumbar region Acquired spondylolisthesis [facility] Diagnosis Spondylolisthesis of lumbar region Acquired spondylolisthesis Open compression fracture of L1 lumbar vertebra with routine healing, subsequent encounter Anxiety disorder, unspecified type documented in this encounter [facility] note* Diagnosis Spinal stenosis of lumbar region, unspecified whether neurogenic claudication present- Primary Lumbar spondylosis Lumbosacral spondylosis without myelopathy Radiculopathy, lumbar region Thoracic or lumbosacral neuritis or radiculitis, unspecified Spondylolisthesis of lumbar region Acquired spondylolisthesis [facility] Diagnosis Pernicious anemia- Primary documented [facility]* Diagnosis DM (diabetes mellitus), 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, not stated as uncontrolled [facility]* Diagnosis Spinal stenosis of lumbar region, unspecified whether neurogenic claudication present Lumbar spondylosis Lumbosacral spondylosis without myelopathy Radiculopathy, lumbar region Thoracic or lumbosacral neuritis or radiculitis, unspecified Spondylolisthesis of lumbar region Acquired spondylolisthesis documented [facility]* Diagnosis Irregular heart rhythm- Primary Cardiac [...] deficiencies Other fatigue documented in this encounter [facility] note* Diagnosis Pernicious anemia- Primary documented in this encounter [facility] note* Diagnosis Spinal stenosis of lumbar region, unspecified whether neurogenic claudication present- Primary Lumbar spondylosis Lumbosacral spondylosis without myelopathy Spondylolisthesis of lumbar region Acquired spondylolisthesis Radiculopathy, lumbar region Thoracic or lumbosacral neuritis or radiculitis, unspecified documented in this encounter [facility] note* Diagnosis Spinal stenosis of lumbar region, unspecified whether neurogenic claudication present- Primary Lumbar spondylosis Lumbosacral spondylosis without myelopathy Spondylolisthesis of lumbar region Acquired spondylolisthesis Radiculopathy, lumbar region Thoracic or lumbosacral neuritis or radiculitis, unspecified documented in this encounter [facility] note* Diagnosis Spinal stenosis of lumbar region, unspecified whether neurogenic claudication present- Primary Lumbar spondylosis Lumbosacral spondylosis without myelopathy Spondylolisthesis of lumbar region Acquired spondylolisthesis Radiculopathy, lumbar region Thoracic or lumbosacral neuritis or radiculitis, unspecified documented in this encounter [facility] note* Diagnosis Spondylolisthesis of lumbar region- Primary Acquired spondylolisthesis Chronic SI joint pain Disorders of sacrum Spinal stenosis of lumbar region, unspecified whether neurogenic claudication present Pain in left hip Pain in joint, pelvic region and thigh Radiculopathy, lumbar region Thoracic or lumbosacral neuritis or radiculitis, unspecified documented in this encounter [facility] note* Diagnosis Spondylolisthesis of lumbar region- Primary Acquired spondylolisthesis Spinal stenosis of lumbar region, unspecified whether neurogenic claudication present Radiculopathy, lumbar region Thoracic or lumbosacral neuritis or radiculitis, unspecified Spondylolisthesis of lumbar region Acquired spondylolisthesis Spinal stenosis of lumbar region, unspecified whether neurogenic claudication present Radiculopathy, lumbar region Thoracic or lumbosacral neuritis or radiculitis, unspecified documented in this encounter [facility] note* Diagnosis Spinal stenosis of lumbar region, [...] or radiculitis, unspecified documented in this encounter [facility] note* Diagnosis Radiculopathy of thoracic region Thoracic or lumbosacral neuritis or radiculitis, unspecified Spondylolisthesis of lumbar region Acquired spondylolisthesis Spinal stenosis of lumbar region, unspecified whether neurogenic claudication present Radiculopathy, lumbar region Thoracic or lumbosacral neuritis or radiculitis, unspecified documented in this encounter [facility] note* Diagnosis Pernicious anemia- Primary Spondylolisthesis of lumbar region Acquired spondylolisthesis Spinal stenosis of lumbar region, unspecified whether neurogenic claudication present Radiculopathy, lumbar region Thoracic or lumbosacral neuritis or radiculitis, unspecified documented in this encounter [facility] note* Diagnosis Spinal stenosis of lumbar region, unspecified whether neurogenic claudication present- Primary Lumbar spondylosis Lumbosacral spondylosis without myelopathy Spondylolisthesis of lumbar region Acquired spondylolisthesis Radiculopathy, lumbar region Thoracic or lumbosacral neuritis or radiculitis, unspecified documented in this encounter [facility] note* Diagnosis Current moderate episode of major depressive disorder, unspecified whether recurrent (HCC)- Primary Anxiety disorder, unspecified type Radiculopathy, lumbar region Thoracic or lumbosacral neuritis or radiculitis, unspecified Chronic SI joint pain Disorders of sacrum Single subsegmental pulmonary embolism without acute cor pulmonale (HCC) Type 2 diabetes mellitus with peripheral neuropathy (HCC) documented in this encounter [facility] note* Diagnosis Spinal stenosis of lumbar region, unspecified whether neurogenic claudication present- Primary Lumbar spondylosis Lumbosacral spondylosis without myelopathy Spondylolisthesis of lumbar region Acquired spondylolisthesis Radiculopathy, lumbar region Thoracic or lumbosacral neuritis or radiculitis, unspecified [facility] Diagnosis Pernicious anemia- Primary [facility] Diagnosis 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 [facility] Diagnosis DM (diabetes mellitus), 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 Type II or unspecified type diabetes mellitus with neurological manifestations, not stated as uncontrolled Type 2 diabetes mellitus with peripheral neuropathy (HCC) [facility] Diagnosis Pernicious anemia- Primary [facility] Diagnosis 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 [facility] Diagnosis FIELD (dyspnea on exertion)- Primary Other dyspnea and respiratory abnormality Irregular heart rhythm Cardiac dysrhythmia, unspecified Premature atrial complexes Supraventricular premature beats PAC (premature atrial contraction) Supraventricular premature beats Mixed hyperlipidemia Carotid artery stenosis without cerebral infarction, bilateral Type 2 diabetes mellitus with peripheral neuropathy (HCC) Atypical chest pain Other chest pain [facility] Diagnosis Irregular heart rhythm Cardiac dysrhythmia, unspecified FIELD (dyspnea on exertion) Other dyspnea and respiratory abnormality Premature atrial complexes Supraventricular premature beats PAC (premature atrial contraction) Supraventricular premature beats Mixed hyperlipidemia Carotid artery stenosis without cerebral infarction, bilateral Type 2 diabetes mellitus with peripheral neuropathy (HCC) Atypical chest pain Other chest pain [facility] Diagnosis Pernicious anemia- Primary [facility] Diagnosis Hypotension due to drugs- Primary Other iatrogenic hypotension Chronic fatigue Other malaise and fatigue Memory deficit Memory loss Obesity, Class II, BMI 35-39.9 Obesity, unspecified Need for influenza vaccination Need for prophylactic vaccination and inoculation against influenza Encounter for therapeutic drug monitoring Type 2 diabetes mellitus with peripheral neuropathy (HCC) Mixed hyperlipidemia [facility] Diagnosis Pernicious anemia- Primary [facility] Diagnosis 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 Pernicious anemia- Primary [facility] Diagnosis 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 [facility] Diagnosis Kidney stone Calculus of kidney [facility] Diagnosis Memory difficulties- Primary Memory loss Vitamin D deficiency Unspecified vitamin D deficiency Chronic cough Cough Type 2 diabetes mellitus with peripheral neuropathy (HCC) Breast cancer screening by mammogram Encounter for immunization Need for other specified prophylactic vaccination against single bacterial disease [facility] Diagnosis Dyspnea on exertion- Primary Other dyspnea and respiratory abnormality Premature atrial complexes Supraventricular premature beats Type 2 diabetes mellitus with peripheral neuropathy (HCC) Multiple subsegmental pulmonary emboli without acute cor pulmonale ([facility]) ASIM (obstructive sleep apnea) Obstructive sleep apnea (adult) (pediatric) documented [facility]* Diagnosis Abnormal mammogram- Primary Abnormal mammogram, unspecified [facility]* Diagnosis 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, without long-term current use of insulin ([facility])- Primary Class 1 obesity due to excess calories with serious comorbidity and body mass index (BMI) of 34.0 to 34.9 in adult documented [facility]* Diagnosis Abnormal mammogram Abnormal mammogram, unspecified [facility] Diagnosis Abnormal mammogram Abnormal mammogram, unspecified [facility] Diagnosis Pernicious anemia- Primary [facility] Diagnosis Mild cognitive impairment- Primary Mild cognitive impairment, so stated ASIM (obstructive sleep apnea) Obstructive sleep apnea (adult) (pediatric) [facility] Diagnosis Seborrheic keratosis- Primary Other seborrheic keratosis 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 documented [facility]* Diagnosis Current moderate episode of major depressive disorder, unspecified whether recurrent (HCC)- Primary Carotid stenosis, right Occlusion and stenosis of carotid artery without mention of cerebral infarction Memory deficit Memory loss Anxiety disorder, unspecified type Radiculopathy, lumbar region Thoracic or lumbosacral neuritis or radiculitis, unspecified Chronic SI joint pain Disorders of sacrum Vitamin D deficiency Unspecified vitamin D deficiency Vitamin B12 deficiency Other B-complex deficiencies Iron deficiency Iron deficiency anemia, unspecified Screening, lipid Screening for lipoid disorders Screening for thyroid disorder Encounter for therapeutic drug monitoring [facility] Diagnosis Pernicious anemia- Primary [facility]* Diagnosis 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, without long-term current use of insulin (HCC)- Primary [facility]* Diagnosis Pernicious anemia- Primary [facility]* Diagnosis 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, without long-term current use of insulin (HCC)- Primary Class 1 obesity due to excess calories with serious comorbidity and body mass index (BMI) of 34.0 to 34.9 in adult [facility]* Diagnosis 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, without long-term current use of insulin (HCC)- Primary Mixed hyperlipidemia Class 3 severe obesity due to excess calories with serious comorbidity and body mass index (BMI) of 40.0 to 44.9 in adult (HCC) Other specified glaucoma, unspecified laterality Pernicious anemia Lumbar spondylosis Lumbosacral spondylosis without myelopathy Lumbar degenerative disc disease Degeneration of lumbar or lumbosacral intervertebral disc Carotid artery stenosis without cerebral infarction, bilateral [facility]* Diagnosis Cognitive impairment- Primary Unspecified persistent mental disorders due to conditions classified elsewhere Type 2 diabetes mellitus with peripheral neuropathy (HCC) Class 1 obesity due to excess calories with body mass index (BMI) of 33.0 to 33.9 in adult, unspecified whether serious comorbidity present Mixed hyperlipidemia Vitamin D deficiency Unspecified vitamin D deficiency Vitamin B12 deficiency Other B-complex deficiencies History of Jordin-en-Y gastric bypass Bariatric surgery status Iron deficiency Iron deficiency anemia, unspecified Encounter for long-term current use of medication [facility]* Diagnosis Type 2 diabetes mellitus with peripheral neuropathy (HCC) [facility] Diagnosis Acute pain of right knee- Primary [facility] Diagnosis Acute pain of right knee [facility] Diagnosis UTI symptoms- Primary Other symptoms involving urinary system [facility] Diagnosis Vulvovaginal pain- Primary Unspecified symptom associated with female genital organs Lumbar strain, subsequent encounter Lumbar degenerative disc disease Degeneration of lumbar or lumbosacral intervertebral disc Generalized OA Generalized osteoarthrosis, unspecified site Left hip pain Pain in joint, pelvic region and thigh Uncomplicated epigastric hernia Other ventral hernia without mention of obstruction or gangrene Pre-operative examination- Primary Preoperative examination, unspecified Lichen sclerosus 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Multiple subsegmental pulmonary emboli without acute cor pulmonale (HCC) Atypical chest pain Other chest pain Hyperlipidemia, unspecified hyperlipidemia type DM (diabetes mellitus), type 2 with neurological complications ([facility]) Type II or unspecified type diabetes mellitus with neurological manifestations, not stated as uncontrolled Pernicious anemia History of Jordin-en-Y gastric bypass Bariatric surgery status Spinal stenosis of lumbar region, unspecified whether neurogenic claudication present Osteopenia Disorder of bone and cartilage, unspecified Anxiety state Anxiety state, unspecified Class 2 severe obesity due to excess calories with serious comorbidity and body mass index (BMI) of 38.0 to 38.9 in adult ([facility]) Renal calculus, left Calculus of kidney documented in this encounter [facility] note* Diagnosis Vulvovaginal pain- Primary Unspecified symptom associated with female genital organs Lumbar strain, subsequent encounter Lumbar degenerative disc disease Degeneration of lumbar or lumbosacral intervertebral disc Generalized OA Generalized osteoarthrosis, unspecified site Left hip pain Pain in joint, pelvic region and thigh Uncomplicated epigastric hernia Other ventral hernia without mention of obstruction or gangrene Pre-operative examination- Primary Preoperative examination, unspecified Lichen sclerosus 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Multiple subsegmental pulmonary emboli without acute cor pulmonale (HCC) Atypical chest pain Other chest pain Hyperlipidemia, unspecified hyperlipidemia type DM (diabetes mellitus), 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, not stated as uncontrolled Pernicious anemia History of Jordin-en-Y gastric bypass Bariatric surgery status Spinal stenosis of lumbar region, unspecified whether neurogenic claudication present Osteopenia Disorder of bone and cartilage, unspecified Anxiety state Anxiety state, unspecified Class 2 severe obesity due to excess calories with serious comorbidity and body mass index (BMI) of 38.0 to 38.9 in adult ([facility]) Crushing injury of right middle finger, initial encounter documented in this encounter [facility] note* Diagnosis Vulvovaginal pain- Primary Unspecified symptom associated with female genital organs Lumbar strain, subsequent encounter Lumbar degenerative disc disease Degeneration of lumbar or lumbosacral intervertebral disc Generalized OA Generalized osteoarthrosis, unspecified site Left hip pain Pain in joint, pelvic region and thigh Uncomplicated epigastric hernia Other ventral hernia without mention of obstruction or gangrene Pre-operative examination- Primary Preoperative examination, unspecified Lichen sclerosus 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Multiple subsegmental pulmonary emboli without acute cor pulmonale (HCC) Atypical chest pain Other chest pain Hyperlipidemia, unspecified hyperlipidemia type DM (diabetes mellitus), 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, not stated as uncontrolled Pernicious anemia History of Jordin-en-Y gastric bypass Bariatric surgery status Spinal stenosis of lumbar region, unspecified whether neurogenic claudication present Osteopenia Disorder of bone and cartilage, unspecified Anxiety state Anxiety state, unspecified Class 2 severe obesity due to excess calories with serious comorbidity and body mass index (BMI) of 38.0 to 38.9 in adult (HCC) Shortness of breath on exertion Shortness of breath [facility] Diagnosis Vulvovaginal pain- Primary Unspecified symptom associated with female genital organs Lumbar strain, subsequent encounter Lumbar degenerative disc disease Degeneration of lumbar or lumbosacral intervertebral disc Generalized OA Generalized osteoarthrosis, unspecified site Left hip pain Pain in joint, pelvic region and thigh Uncomplicated epigastric hernia Other ventral hernia without mention of obstruction or gangrene Pre-operative examination- Primary Preoperative examination, unspecified Lichen sclerosus 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Multiple subsegmental pulmonary emboli without acute cor pulmonale (HCC) Atypical chest pain Other chest pain Hyperlipidemia, unspecified hyperlipidemia type DM (diabetes mellitus), 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, not stated as uncontrolled Pernicious anemia History of Jordin-en-Y gastric bypass Bariatric surgery status Spinal stenosis of lumbar region, unspecified whether neurogenic claudication present Osteopenia Disorder of bone and cartilage, unspecified Anxiety state Anxiety state, unspecified Class 2 severe obesity due to excess calories with serious comorbidity and body mass index (BMI) of 38.0 to 38.9 in adult (HCC) Lumbar spondylosis- Primary Lumbosacral spondylosis without myelopathy Spondylolisthesis of lumbar region Acquired spondylolisthesis Radiculopathy, lumbar region Thoracic or lumbosacral neuritis or radiculitis, unspecified Lumbar spondylosis Lumbosacral spondylosis without myelopathy Spondylolisthesis of lumbar region Acquired spondylolisthesis Radiculopathy, lumbar region Thoracic or lumbosacral neuritis or radiculitis, unspecified documented in this encounter [facility] note* Diagnosis Vulvovaginal pain- Primary Unspecified symptom associated with female genital organs Lumbar strain, subsequent encounter Lumbar degenerative disc disease Degeneration of lumbar or lumbosacral intervertebral disc Generalized OA Generalized osteoarthrosis, unspecified site Left hip pain Pain in joint, pelvic region and thigh Uncomplicated epigastric hernia Other ventral hernia without mention of obstruction or gangrene Pre-operative examination- Primary Preoperative examination, unspecified Lichen sclerosus 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Multiple subsegmental pulmonary emboli without acute cor pulmonale (HCC) Atypical chest pain Other chest pain Hyperlipidemia, unspecified hyperlipidemia type DM (diabetes mellitus), 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, not stated as uncontrolled Pernicious anemia History of Jordin-en-Y gastric bypass Bariatric surgery status Spinal stenosis of lumbar region, unspecified whether neurogenic claudication present Osteopenia Disorder of bone and cartilage, unspecified Anxiety state Anxiety state, unspecified Class 2 severe obesity due to excess calories with serious comorbidity and body mass index (BMI) of 38.0 to 38.9 in adult (HCC) Lumbar spondylosis- Primary Lumbosacral spondylosis without myelopathy Radiculopathy, lumbar region Thoracic or lumbosacral neuritis or radiculitis, unspecified Lumbar spondylosis Lumbosacral spondylosis without myelopathy Spondylolisthesis of lumbar region Acquired spondylolisthesis Radiculopathy, lumbar region Thoracic or lumbosacral neuritis or radiculitis, unspecified [facility] Diagnosis Vulvovaginal pain- Primary Unspecified symptom associated with female genital organs Lumbar strain, subsequent encounter Lumbar degenerative disc disease Degeneration of lumbar or lumbosacral intervertebral disc Generalized OA Generalized osteoarthrosis, unspecified site Left hip pain Pain in joint, pelvic region and thigh Uncomplicated epigastric hernia Other ventral hernia without mention of obstruction or gangrene Pre-operative examination- Primary Preoperative examination, unspecified Lichen sclerosus 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Multiple subsegmental pulmonary emboli without acute cor pulmonale (HCC) Atypical chest pain Other chest pain Hyperlipidemia, unspecified hyperlipidemia type DM (diabetes mellitus), 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, not stated as uncontrolled Pernicious anemia History of Jordin-en-Y gastric bypass Bariatric surgery status Spinal stenosis of lumbar region, unspecified whether neurogenic claudication present Osteopenia Disorder of bone and cartilage, unspecified Anxiety state Anxiety state, unspecified Class 2 severe obesity due to excess calories with serious comorbidity and body mass index (BMI) of 38.0 to 38.9 in adult (HCC) 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 DM (diabetes mellitus), 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, not stated as uncontrolled Aortic valve sclerosis Aortic valve disorders Subdural hemorrhage (HCC)- Primary Subdural hemorrhage SAH (subarachnoid hemorrhage) (HCC) Subarachnoid hemorrhage Closed fracture of left femur, unspecified fracture morphology, unspecified portion of femur, initial encounter ([facility]) Acute blood loss anemia Acute posthemorrhagic anemia Midline shift of brain due to hematoma (HCC) At risk for seizures Other specified conditions influencing health status Pneumocephalus, traumatic Other conditions of brain Traumatic subdural hematoma with loss of consciousness, sequela (HCC) Traumatic subdural hematoma with loss of consciousness (HCC) Subdural hemorrhage following injury, without mention of open intracranial wound, loss of consciousness of unspecified duration Periprosthetic fracture around internal prosthetic knee joint At risk for seizures Other specified conditions influencing health status Pneumocephalus, traumatic Other conditions of brain Acute blood loss anemia Acute posthemorrhagic anemia Midline shift of brain due to hematoma (HCC) Fall Unspecified fall 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, without long-term current use of insulin ([facility]) Hyperkalemia Hyperpotassemia [facility] Diagnosis Vulvovaginal pain- Primary Unspecified symptom associated with female genital organs Lumbar strain, subsequent encounter Lumbar degenerative disc disease Degeneration of lumbar or lumbosacral intervertebral disc Generalized OA Generalized osteoarthrosis, unspecified site Left hip pain Pain in joint, pelvic region and thigh Uncomplicated epigastric hernia Other ventral hernia without mention of obstruction or gangrene Pre-operative examination- Primary Preoperative examination, unspecified Lichen sclerosus 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Multiple subsegmental pulmonary emboli without acute cor pulmonale (HCC) Atypical chest pain Other chest pain Hyperlipidemia, unspecified hyperlipidemia type DM (diabetes mellitus), 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, not stated as uncontrolled Pernicious anemia History of Jordin-en-Y gastric bypass Bariatric surgery status Spinal stenosis of lumbar region, unspecified whether neurogenic claudication present Osteopenia Disorder of bone and cartilage, unspecified Anxiety state Anxiety state, unspecified Class 2 severe obesity due to excess calories with serious comorbidity and body mass index (BMI) of 38.0 to 38.9 in adult (HCC) Pruritic condition- Primary Unspecified pruritic disorder Anemia, unspecified type Type 2 diabetes mellitus with peripheral neuropathy (HCC) Vitamin D deficiency Unspecified vitamin D deficiency Vitamin B12 deficiency Other B-complex deficiencies Pedal edema Edema Dementia, unspecified dementia severity, unspecified dementia type, unspecified whether behavioral, psychotic, or mood disturbance or anxiety (HCC) Subdural hemorrhage (HCC)- Primary Subdural hemorrhage Subdural hemorrhage (HCC) Subdural hemorrhage SAH (subarachnoid hemorrhage) (HCC) Subarachnoid hemorrhage Closed fracture of left femur, unspecified fracture morphology, unspecified portion of femur, initial encounter (HCC) Acute blood loss anemia Acute posthemorrhagic anemia Midline shift of brain due to hematoma (HCC) At risk for seizures Other specified conditions influencing health status Pneumocephalus, traumatic Other conditions of brain Traumatic subdural hematoma with loss of consciousness, sequela (HCC) Traumatic subdural hematoma with loss of consciousness, subsequent encounter Traumatic subdural hematoma with loss of consciousness (HCC) Subdural hemorrhage following injury, without mention of open intracranial wound, loss of consciousness of unspecified duration Periprosthetic fracture around internal prosthetic knee joint At risk for seizures Other specified conditions influencing health status Pneumocephalus, traumatic Other conditions of brain Acute blood loss anemia Acute posthemorrhagic anemia Midline shift of brain due to hematoma (HCC) Fall Unspecified fall 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, without long-term current use of insulin (HCC) Hyperkalemia Hyperpotassemia Severe protein-calorie malnutrition (HCC) Other severe protein-calorie malnutrition Delirium Other alteration of consciousness Dementia (HCC) Dementia, unspecified, without behavioral disturbance Frailty syndrome in geriatric patient Goals of care, counseling/discussion Other specified counseling DNR (do not resuscitate) discussion Other specified counseling Longstanding persistent atrial fibrillation ([facility]) [facility] Diagnosis Vulvovaginal pain- Primary Unspecified symptom associated with female genital organs Lumbar strain, subsequent encounter Lumbar degenerative disc disease Degeneration of lumbar or lumbosacral intervertebral disc Generalized OA Generalized osteoarthrosis, unspecified site Left hip pain Pain in joint, pelvic region and thigh Uncomplicated epigastric hernia Other ventral hernia without mention of obstruction or gangrene Pre-operative examination- Primary Preoperative examination, unspecified Lichen sclerosus 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Multiple subsegmental pulmonary emboli without acute cor pulmonale ([facility]) Atypical chest pain Other chest pain Hyperlipidemia, unspecified hyperlipidemia type DM (diabetes mellitus), 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, not stated as uncontrolled Pernicious anemia History of Jordin-en-Y gastric bypass Bariatric surgery status Spinal stenosis of lumbar region, unspecified whether neurogenic claudication present Osteopenia Disorder of bone and cartilage, unspecified Anxiety state Anxiety state, unspecified Class 2 severe obesity due to excess calories with serious comorbidity and body mass index (BMI) of 38.0 to 38.9 in adult ([facility]) Subdural hemorrhage (HCC)- Primary Subdural hemorrhage Subdural hemorrhage (HCC) Subdural hemorrhage SAH (subarachnoid hemorrhage) (HCC) Subarachnoid hemorrhage Closed fracture of left femur, unspecified fracture morphology, unspecified portion of femur, initial encounter ([facility]) Acute blood loss anemia Acute posthemorrhagic anemia Midline shift of brain due to hematoma (HCC) At risk for seizures Other specified conditions influencing health status Pneumocephalus, traumatic Other conditions of brain Traumatic subdural hematoma with loss of consciousness, sequela (HCC) Traumatic subdural hematoma with loss of consciousness, subsequent encounter Traumatic subdural hematoma with loss of consciousness (HCC) Subdural hemorrhage following injury, without mention of open intracranial wound, loss of consciousness of unspecified duration Periprosthetic fracture around internal prosthetic knee joint At risk for seizures Other specified conditions influencing health status Pneumocephalus, traumatic Other conditions of brain Acute blood loss anemia Acute posthemorrhagic anemia Midline shift of brain due to hematoma (HCC) Fall Unspecified fall 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, without long-term current use of insulin (HCC) Hyperkalemia Hyperpotassemia Severe protein-calorie malnutrition (HCC) Other severe protein-calorie malnutrition Delirium Other alteration of consciousness Dementia (HCC) Dementia, unspecified, without behavioral disturbance Frailty syndrome in geriatric patient Goals of care, counseling/discussion Other specified counseling DNR (do not resuscitate) discussion Other specified counseling Longstanding persistent atrial fibrillation (HCC) Class 1 obesity due to excess calories with serious comorbidity and body mass index (BMI) of 34.0 to 34.9 in adult 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, without long-term current use of insulin (HCC) documented in this encounter [facility] note* Diagnosis Vulvovaginal pain- Primary Unspecified symptom associated with female genital organs Lumbar strain, subsequent encounter Lumbar degenerative disc disease Degeneration of lumbar or lumbosacral intervertebral disc Generalized OA Generalized osteoarthrosis, unspecified site Left hip pain Pain in joint, pelvic region and thigh Uncomplicated epigastric hernia Other ventral hernia without mention of obstruction or gangrene Pre-operative examination- Primary Preoperative examination, unspecified Lichen sclerosus 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Multiple subsegmental pulmonary emboli without acute cor pulmonale (HCC) Atypical chest pain Other chest pain Hyperlipidemia, unspecified hyperlipidemia type DM (diabetes mellitus), 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, not stated as uncontrolled Pernicious anemia History of Jordin-en-Y gastric bypass Bariatric surgery status Spinal stenosis of lumbar region, unspecified whether neurogenic claudication present Osteopenia Disorder of bone and cartilage, unspecified Anxiety state Anxiety state, unspecified Class 2 severe obesity due to excess calories with serious comorbidity and body mass index (BMI) of 38.0 to 38.9 in adult (HCC) Subdural hemorrhage (HCC)- Primary Subdural hemorrhage Subdural hemorrhage (HCC) Subdural hemorrhage SAH (subarachnoid hemorrhage) (HCC) Subarachnoid hemorrhage Closed fracture of left femur, unspecified fracture morphology, unspecified portion of femur, initial encounter (HCC) Acute blood loss anemia Acute posthemorrhagic anemia Midline shift of brain due to hematoma (HCC) At risk for seizures Other specified conditions influencing health status Pneumocephalus, traumatic Other conditions of brain Traumatic subdural hematoma with loss of consciousness, sequela (HCC) Traumatic subdural hematoma with loss of consciousness, subsequent encounter Traumatic subdural hematoma with loss of consciousness (HCC) Subdural hemorrhage following injury, without mention of open intracranial wound, loss of consciousness of unspecified duration Periprosthetic fracture around internal prosthetic knee joint At risk for seizures Other specified conditions influencing health status Pneumocephalus, traumatic Other conditions of brain Acute blood loss anemia Acute posthemorrhagic anemia Midline shift of brain due to hematoma (HCC) Fall Unspecified fall 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, without long-term current use of insulin (HCC) Hyperkalemia Hyperpotassemia Severe protein-calorie malnutrition (HCC) Other severe protein-calorie malnutrition Delirium Other alteration of consciousness Dementia (HCC) Dementia, unspecified, without behavioral disturbance Frailty syndrome in geriatric patient Goals of care, counseling/discussion Other specified counseling DNR (do not resuscitate) discussion Other specified counseling Longstanding persistent atrial fibrillation (HCC) Class 1 obesity due to excess calories with serious comorbidity and body mass index (BMI) of 34.0 to 34.9 in adult 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, without long-term current use of insulin (HCC) [facility] Diagnosis Vulvovaginal pain- Primary Unspecified symptom associated with female genital organs Lumbar strain, subsequent encounter Lumbar degenerative disc disease Degeneration of lumbar or lumbosacral intervertebral disc Generalized OA Generalized osteoarthrosis, unspecified site Left hip pain Pain in joint, pelvic region and thigh Uncomplicated epigastric hernia Other ventral hernia without mention of obstruction or gangrene Pre-operative examination- Primary Preoperative examination, unspecified Lichen sclerosus 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Multiple subsegmental pulmonary emboli without acute cor pulmonale (HCC) Atypical chest pain Other chest pain Hyperlipidemia, unspecified hyperlipidemia type DM (diabetes mellitus), 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, not stated as uncontrolled Pernicious anemia History of Jordin-en-Y gastric bypass Bariatric surgery status Spinal stenosis of lumbar region, unspecified whether neurogenic claudication present Osteopenia Disorder of bone and cartilage, unspecified Anxiety state Anxiety state, unspecified Class 2 severe obesity due to excess calories with serious comorbidity and body mass index (BMI) of 38.0 to 38.9 in adult (HCC) Subdural hemorrhage (HCC)- Primary Subdural hemorrhage Subdural hemorrhage (HCC) Subdural hemorrhage SAH (subarachnoid hemorrhage) (HCC) Subarachnoid hemorrhage Closed fracture of left femur, unspecified fracture morphology, unspecified portion of femur, initial encounter ([facility]) Acute blood loss anemia Acute posthemorrhagic anemia Midline shift of brain due to hematoma (HCC) At risk for seizures Other specified conditions influencing health status Pneumocephalus, traumatic Other conditions of brain Traumatic subdural hematoma with loss of consciousness, sequela (HCC) Traumatic subdural hematoma with loss of consciousness, subsequent encounter Traumatic subdural hematoma with loss of consciousness (HCC) Subdural hemorrhage following injury, without mention of open intracranial wound, loss of consciousness of unspecified duration Periprosthetic fracture around internal prosthetic knee joint At risk for seizures Other specified conditions influencing health status Pneumocephalus, traumatic Other conditions of brain Acute blood loss anemia Acute posthemorrhagic anemia Midline shift of brain due to hematoma (HCC) Fall Unspecified fall 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, without long-term current use of insulin (HCC) Hyperkalemia Hyperpotassemia Severe protein-calorie malnutrition (HCC) Other severe protein-calorie malnutrition Delirium Other alteration of consciousness Dementia (HCC) Dementia, unspecified, without behavioral disturbance Frailty syndrome in geriatric patient Goals of care, counseling/discussion Other specified counseling DNR (do not resuscitate) discussion Other specified counseling Longstanding persistent atrial fibrillation (HCC) Intracranial hemorrhage (HCC)- Primary Unspecified intracranial hemorrhage [facility] Diagnosis Nontraumatic intracranial hemorrhage, unspecified ([facility]) [facility] Diagnosis Vulvovaginal pain- Primary Unspecified symptom associated with female genital organs Lumbar strain, subsequent encounter Lumbar degenerative disc disease Degeneration of lumbar or lumbosacral intervertebral disc Generalized OA Generalized osteoarthrosis, unspecified site Left hip pain Pain in joint, pelvic region and thigh Uncomplicated epigastric hernia Other ventral hernia without mention of obstruction or gangrene Pre-operative examination- Primary Preoperative examination, unspecified Lichen sclerosus 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Multiple subsegmental pulmonary emboli without acute cor pulmonale (HCC) Atypical chest pain Other chest pain Hyperlipidemia, unspecified hyperlipidemia type DM (diabetes mellitus), 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, not stated as uncontrolled Pernicious anemia History of Jordin-en-Y gastric bypass Bariatric surgery status Spinal stenosis of lumbar region, unspecified whether neurogenic claudication present Osteopenia Disorder of bone and cartilage, unspecified Anxiety state Anxiety state, unspecified Class 2 severe obesity due to excess calories with serious comorbidity and body mass index (BMI) of 38.0 to 38.9 in adult (HCC) Subdural hemorrhage (HCC)- Primary Subdural hemorrhage Subdural hemorrhage (HCC) Subdural hemorrhage SAH (subarachnoid hemorrhage) (HCC) Subarachnoid hemorrhage Closed fracture of left femur, unspecified fracture morphology, unspecified portion of femur, initial encounter (HCC) Acute blood loss anemia Acute posthemorrhagic anemia Midline shift of brain due to hematoma (HCC) At risk for seizures Other specified conditions influencing health status Pneumocephalus, traumatic Other conditions of brain Traumatic subdural hematoma with loss of consciousness, sequela (HCC) Traumatic subdural hematoma with loss of consciousness, subsequent encounter Traumatic subdural hematoma with loss of consciousness (HCC) Subdural hemorrhage following injury, without mention of open intracranial wound, loss of consciousness of unspecified duration Periprosthetic fracture around internal prosthetic knee joint At risk for seizures Other specified conditions influencing health status Pneumocephalus, traumatic Other conditions of brain Acute blood loss anemia Acute posthemorrhagic anemia Midline shift of brain due to hematoma (HCC) Fall Unspecified fall 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, without long-term current use of insulin (HCC) Hyperkalemia Hyperpotassemia Severe protein-calorie malnutrition (HCC) Other severe protein-calorie malnutrition Delirium Other alteration of consciousness Dementia (HCC) Dementia, unspecified, without behavioral disturbance Frailty syndrome in geriatric patient Goals of care, counseling/discussion Other specified counseling DNR (do not resuscitate) discussion Other specified counseling Longstanding persistent atrial fibrillation (HCC) Traumatic subdural hematoma with loss of consciousness, subsequent encounter- Primary [facility] Additional Instructions The Dermabond/skin adhesive will fall off on its own in approximately 10 days. You can continue to shower and wash your hair as normal. Please return to the ER should you have any further concernsWKet[facility] Work Phone: Hospital Discharge instructions Additional Instructions Please follow-up with urology for repeat evaluation and return to the ER if your pain is not controlled with outpatient therapy or you develop a fever over 100.[facility] Work Phone: Reason for referral (narrative)* Outpatient Procedure (Routine) - Waiting for Online Response Specialty Diagnoses / Procedures Referred By Liliana t Referred To Contact [facility] Diagnoses Shortness of breath on exertion Irregular heart beat Fatigue, unspecified type Procedures ECHO ECHO TTHRC R-T 2D W/WOM-MODE COMPL SPEC&COLR D Comfort Patterson, LEAD MINER.VENTILATION MECHANIC [address] [place] [address] [facility] [place] [address] [place] [address] Referral ID Status Reason Start Date Expiration Date Visits Requested Visits Authorized [id number] Waiting for Online Response Auto-Generat ed Referral 10/28/2021 10/07/2022 1 1 * Consult, Test, Treat (Routine) - Pending Review Specialty Diagnoses / Procedures Referred By Contac t Referred To Contact Cardiology Diagnoses Shortness of breath on exertion Irregular heart beat Fatigue, unspecified type Procedures CONSULT TO CARDIOLOGY OFFICE/OUTPATIENT [facility] 60-74 MINUTES Comfort Patterson APRN.CNS [address] [place] [address] Referral ID Status Reason Start Date Expiration Date Visits Requested Visits Authorized [id number] Pending Review PCP Requested Referral 10/28/2021 10/07/2022 1 1 [facility] for referral (narrative)* Outpatient Procedure (Routine) - Pending Review Specialty Diagnoses / Procedures Referred By Contac t Referred To Contact [facility] [place] Diagnoses Irregular heart beat Procedures ECG COMPLETE ECG ROUTINE ECG W/LEAST 12 LDS W/I&R Iban Soto MD [address] [place] [address] [facility] [address] [address] Referral ID Status Reason Start Date Expiration Date Visits Requested Visits Authorized [id number] Pending Review Auto-Generat ed Referral 10/03/2021 10/03/2022 1 1 [facility] for referral (narrative)* Outpatient Procedure (Routine) - Closed Specialty Diagnoses / Procedures Referred By Contac t Referred To Contact [facility] [place] [facility] [place] Diagnoses Dyspnea on exertion Procedures ECG COMPLETE ECG ROUTINE ECG W/LEAST 12 LDS W/I&R Gamaliel Alegre MD [address] [place] [address] [facility] [address] [address] Referral ID Status Reason Start Date Expiration Date V isits Requested Visits Authorized [id number] Closed Auto-Generate d Referral 11/02/2021 11/02/2022 1 1 [facility] for referral (narrative)* Outpatient Procedure (Routine) - Pending Review Specialty Diagnoses / Procedures Referred By Contac t Referred To Contact [facility] Diagnoses FIELD (dyspnea on exertion) Chronic cough Procedures LUNG VOLUMES Guillaume Dominguez MD [address] [place] [address] [facility] [place] [address] [place], [place] [id number] Referral ID Status Reason Start Date Expiration Date Visits Requested Visits Authorized [id number] Pending Review Auto-Generat ed Referral 2 05/27/2023 1 1 * Outpatient Procedure (Routine) - Authorized Specialty Diagnoses / Procedures Referred By Contac t Referred To Contact [facility] Diagnoses FIELD (dyspnea on exertion) Chronic cough Procedures SPIROMETRY WITH DILATOR IF OBSTRUCTED BRNCDILAT RSPSE SPMTRY PRE&POST-BRNCDILAT ADMN Guillaume Dominguez MD [address] [place] [address] [address] [address] Referral ID Status Reason Start Date Expiration Date Visits Requested Visits Authorized [id number] Authorized Auto-Generat ed Referral 2 05/27/2023 1 1 * Outpatient Procedure (Routine) - Pending Review Specialty Diagnoses / Procedures Referred By Contac t Referred To Contact [facility] Diagnoses Irregular heart rhythm Procedures ECG COMPLETE ECG ROUTINE ECG W/LEAST 12 LDS W/I&R Guillaume Dominguez MD [address] [place] [address] [facility] [place] [address] [place] [address] Referral ID Status Reason Start Date Expiration Date Visits Requested Visits Authorized [id number] Pending Review Auto-Generat ed Referral 2 04/27/2023 1 1 [facility] for referral (narrative)* Diagnostic Procedure Only (Routine) - Pending Review Specialty Diagnoses / Procedures Referred By Contac t Referred To Contact XR IMAGING Diagnoses Finger injury, right, initial encounter Procedures XR DIGIT GENERAL 3V FRONTAL/LAT/OBL RIGHT RADEX FINGR MINIMUM 2 VIEWS Eren Robbins MD [address] [place] [address] Xr Imaging Referral ID Status Reason Start Date Expiration Date Visits Requested Visits Authorized [id number] Pending Review Auto-Generat ed Referral 2 06/20/2023 1 1 [facility] for referral (narrative)* Diagnostic Procedure Only (Routine) - Pending Review Specialty Diagnoses / Procedures Referred By Contac t Referred To Contact XR IMAGING Diagnoses Kidney stone Procedures XR ABDOMEN 1V SUPINE RADIOLOGIC EXAM ABDOMEN 1 VIEW Maykel Patel Jr., MD [address] [place] [address] Xr Imaging Referral ID Status Reason Start Date Expiration Date Visits Requested Visits Authorized [id number] Pending Review Auto-Generat ed Referral 09/09/2022 07/11/2023 1 1 [facility] for referral (narrative)* Outpatient Procedure [...] TTHRC R-T 2D W/WOM-MODE COMPL SPEC&COLR D Maykel Whitfield DO [address] [address] [facility] [place] [address] [place] [address] Referral ID Status Reason Start Date Expiration Date Visits Requested Visits Authorized [id number] Pending Review Auto-Generat ed Referral 01/11/2023 01/11/2024 [...] CARDIAC PERF STRESS/PHARM MYOCARDIAL SPECT MULTIPLE STUDIES Maykel Whitfield DO [address] [place] [place] [id number] [facility] [address] [place] [address] Referral ID Status Reason Start Date Expiration Date Visits Requested Visits Authorized [id number] Pending Review Auto-Generat ed Referral 01/11/2023 02/10/2024 1 1 [facility] for referral (narrative)* Diagnostic Procedure Only [...] CARDIAC PERF STRESS/PHARM MYOCARDIAL SPECT MULTIPLE STUDIES Maykel Whitfield DO [address] [address] [facility] [address] [place], [place] [address] Referral ID Status Reason Start Date Expiration Date V isits Requested Visits Authorized [id number] Closed Auto-Generate d Referral 01/12/2023 04/12/2023 1 1 [facility] for referral (narrative)* Diagnostic Procedure Only (Routine) - Closed Specialty Diagnoses / Procedures Referred By Contac t Referred To Contact XR IMAGING Diagnoses Kidney stone Procedures XR ABDOMEN 1V SUPINE RADIOLOGIC EXAM ABDOMEN 1 VIEW Maykel Patel Jr., MD [address] [place] [address] Xr Imaging [id number] Referral ID Status Reason Start Date Expiration Date V isits Requested Visits Authorized [id number] Closed Auto-Generate d Referral 09/23/2022 10/22/2023 1 1 [facility] for referral (narrative)* Diagnostic Procedure Only (Routine) - Authorized Specialty Diagnoses / Procedures Referred By Contac t Referred To Contact BR IMAGING Diagnoses Abnormal mammogram Procedures US BREAST LTD RIGHT US BREAST UNI REAL TIME WITH IMAGE LIMITED Josefa Caputo APRN.REMOTE SENSING RESEARCH SCIENTIST [address] [place] [address] [facility] [address] [place] [address] Referral ID Status Reason Start Date Expiration Date Visits Requested Visits Authorized [id number] Authorized Auto-Generat ed Referral 07/07/2023 08/05/2024 1 1 * Diagnostic Procedure Only (Routine) - Authorized Specialty Diagnoses / Procedures Referred By Contac t Referred To Contact BR IMAGING Diagnoses Abnormal mammogram Procedures ARTIS DIAGNOSTIC RIGHT DIAGNOSTIC MAMMOGRAPHY COMPUTER-AIDED DETCJ UNI Josefa Caputo APRN.CNP [address] [place] [address] [facility] [address] [place] [address] Referral ID Status Reason Start Date Expiration Date Visits Requested Visits Authorized [id number] Authorized Auto-Generat ed Referral 07/07/2023 08/05/2024 1 1 [facility] for referral (narrative)* Outpatient Procedure (Routine) - Authorized Specialty Diagnoses / Procedures Referred By Evyac t Referred To Contact [facility] Diagnoses Carotid stenosis, right Procedures US CAROTID ARTERIES POLO VAS LAB DUPLEX SCAN EXTRACRANIAL ART COMPL BI STUDY Josefa Caputo APRN.CNP [address] [place] [address] [facility] [place] [address] [place] [address] Referral ID Status Reason Start Date Expiration Date Visits Requested Visits Authorized [id number] Authorized Auto-Generat ed Referral 08/13/2023 08/12/2024 1 1 * Medication Prior Authorization - Authorized Specialty Diagnoses / Procedures Referred By Liliana t Referred To Contact Diagnoses Anxiety disorder, unspecified type Radiculopathy, lumbar region Chronic SI joint pain Josefa Caputo APRN.REMOTE SENSING RESEARCH SCIENTIST [address] [place] [address] Referral ID Status Reason Start Date Expiration Date V isits Requested Visits Authorized [id number] Authorized 05/31/2023 05/30/2024 1 1 [facility] for referral (narrative)* Diagnostic Procedure Only (Routine) - New Request Specialty Diagnoses / Procedures Referred By Liliana t Referred To Contact XR IMAGING Diagnoses Acute pain of right knee Procedures XR KNEE LIMITED 2V AP/LAT RIGHT RADIOLOGIC EXAMINATION KNEE 1/2 VIEWS Josefa Caputo APRN.REMOTE SENSING RESEARCH SCIENTIST [address] [place] [address] [place] [address] Referral ID Status Reason Start Date Expiration Date Visits Requested Visits Authorized [id number] New Request Auto-Generat ed Referral 12/24/2023 01/22/2025 1 1 [facility] for referral (narrative)* Diagnostic Procedure Only (Routine) - Closed Specialty Diagnoses / Procedures Referred By Contac t Referred To Contact XR IMAGING Diagnoses Renal calculus, left Procedures XR ABDOMEN 1V SUPINE RADIOLOGIC EXAM ABDOMEN 1 VIEW Maykel Patel Jr., MD [address] [place] [address] [place] [address] Referral ID Status Reason Start Date Expiration Date V isits Requested Visits Authorized [id number] Closed Auto-Generate d Referral 04/07/2022 05/07/2023 1 1 [facility] for referral (narrative)* Diagnostic Procedure Only (Urgent) - Closed Specialty Diagnoses / Procedures Referred By Contac t Referred To Contact XR IMAGING Diagnoses Crushing injury of right middle finger, initial encounter Procedures XR DIGIT GENERAL 3V FRONTAL/LAT/OBL RIGHT RADEX FINGR MINIMUM 2 VIEWS Janae Sandoval APRN.REMOTE SENSING RESEARCH SCIENTIST [address] [place] [address] [place] [address] Referral ID Status Reason Start Date Expiration Date V isits Requested Visits Authorized [id number] Closed Auto-Generate d Referral 05/06/2022 06/05/2023 1 1 [facility] for referral (narrative)No reason for referral information availableWKettering [facility] Work Phone: Reason for visit Narrative* Diagnostic Procedure Only (Routine) [...] CARDIAC PERF STRESS/PHARM MYOCARDIAL SPECT MULTIPLE STUDIES Maykel Whitfield DO [address] [address] [facility] [address] [place] [address] Referral ID Status Reason Start Date Expiration Date V isits Requested Visits Authorized [id number] Closed Auto-Generate d Referral 01/12/2023 04/12/2023 1 1 [facility] for visit Narrative* Diagnostic Procedure Only (Routine) - Closed Specialty Diagnoses / Procedures Referred By Contac t Referred To Contact XR IMAGING Diagnoses Kidney stone Procedures XR ABDOMEN 1V SUPINE RADIOLOGIC EXAM ABDOMEN 1 VIEW Maykel Patel Jr., MD [facility] [place] [address] [place] [address] Referral ID Status Reason Start Date Expiration Date V isits Requested Visits Authorized [id number] Closed Auto-Generate d Referral 09/23/2022 10/22/2023 1 1 [facility] for visit Narrative* Diagnostic Procedure Only (Routine) - Closed Specialty Diagnoses / Procedures Referred By Contac t Referred To Contact BR IMAGING Diagnoses Abnormal mammogram Procedures ARTIS DIAGNOSTIC RIGHT DIAGNOSTIC MAMMOGRAPHY COMPUTER-AIDED DETCJ UNI [place] [address] [facility] [address] [place] [address] Referral ID Status Reason Start Date Expiration Date V isits Requested Visits Authorized [id number] Closed Auto-Generate d Referral 07/07/2023 08/05/2024 1 1 [facility] for visit Narrative* Diagnostic Procedure Only (Routine) - Authorized Specialty Diagnoses / Procedures Referred By Contac t Referred To Contact BR IMAGING Diagnoses Abnormal mammogram Procedures US BREAST LTD RIGHT US BREAST UNI REAL TIME WITH IMAGE LIMITED Josefa Caputo APRN.REMOTE SENSING RESEARCH SCIENTIST [address] [place] [address] [facility] [address] [place] [address] Referral ID Status Reason Start Date Expiration Date Visits Requested Visits Authorized [id number] Authorized Auto-Generat ed Referral 07/07/2023 08/05/2024 1 1 [facility] for visit Narrative* Diagnostic Procedure Only (Routine) - Closed Specialty Diagnoses / Procedures Referred By Contac t Referred To Contact XR IMAGING Diagnoses Acute pain of right knee Procedures XR KNEE LIMITED 2V AP/LAT RIGHT RADIOLOGIC EXAMINATION KNEE 1/2 VIEWS Josefa Caputo, LEAD MINER.REMOTE SENSING RESEARCH SCIENTIST [address] [place] [address] [place] [address] Referral ID Status Reason Start Date Expiration Date V isits Requested Visits Authorized [id number] Closed Auto-Generate d Referral 12/24/2023 01/22/2025 1 1 [facility] for visit Narrative* Diagnostic Procedure Only (Routine) - Closed Specialty Diagnoses / Procedures Referred By Contac t Referred To Contact XR IMAGING Diagnoses Renal calculus, left Procedures XR ABDOMEN 1V SUPINE RADIOLOGIC EXAM ABDOMEN 1 VIEW Maykel Patel Jr., MD [address] [place] [address] [place] [address] Referral ID Status Reason Start Date Expiration Date V isits Requested Visits Authorized [id number] Closed Auto-Generate d Referral 04/07/2022 05/07/2023 1 1 [facility] for visit Narrative* Diagnostic Procedure Only (Urgent) - Closed Specialty Diagnoses / Procedures Referred By Contac t Referred To Contact XR IMAGING Diagnoses Crushing injury of right middle finger, initial encounter Procedures XR DIGIT GENERAL 3V FRONTAL/LAT/OBL RIGHT RADEX FINGR MINIMUM 2 VIEWS Janae Sandoval, LEAD MINER.REMOTE SENSING RESEARCH SCIENTIST [address] [place] [address] [place] [address] Referral ID Status Reason Start Date Expiration Date V isits Requested Visits Authorized [id number] Closed Auto-Generate d Referral 05/06/2022 06/05/2023 1 1 [facility] for visit Narrative* Imaging (Routine) - Closed Specialty Diagnoses / Procedures Referred By Contac t Referred To Contact Radiology Diagnoses Nontraumatic intracranial hemorrhage, unspecified (HCC) Procedures CT head wo IV contrast Tika Jones MD [address] [place] [address] Phone: tel: fax: Referral ID Status Reason Start Date Expiration Date Visits Re quested Visits Authorized [id number] Closed 08/01/2024 09/30/2024 1 1 [facility] Health Summary Purpose Family History No Family History Records FoundNo Family History Records FoundNo Family History Records FoundNo Family History Records FoundNo Family History Records FoundNo Family History Records FoundNo Family History Records FoundNo Family History Records Found Advance Directives No Advanced Directives Records FoundDocuments on File Type Date Recorded Patient Paper Sorter And Counter Expl anation Advance Directive(s) 08/16/2020 1:32 PM Advance Directive(s) 08/06/2020 9:17 AM Advance Directive(s) 05/05/2019 11:23 AM Advance Directive(s) 05/05/2019 11:27 AM Advance Directive(s) 03/17/2019 2:21 PM Advance Directive(s) 12/15/2018 11:36 AM Advance Directive(s) 11/23/2018 2:18 PM Advance Directive(s) 10/04/2018 7:45 AM Advance Directive(s) 11/09/2017 7:52 AM Documents on File Type Date Recorded Patient Paper Sorter And Counter Expl anation Advance Directive(s) 08/16/2020 1:32 PM Advance Directive(s) 08/06/2020 9:17 AM Advance Directive(s) 05/05/2019 11:23 AM Advance Directive(s) 05/05/2019 11:27 AM Advance Directive(s) 03/17/2019 2:21 PM Advance Directive(s) 12/15/2018 11:36 AM Advance Directive(s) 11/23/2018 2:18 PM Advance Directive(s) 10/04/2018 7:45 AM Advance Directive(s) 11/09/2017 7:52 AM Documents on File Type Date Recorded Patient Paper Sorter And Counter Expl anation Advance Directive(s) 11/21/2021 12:55 PM Advance Directive(s) 11/06/2021 3:24 PM Advance Directive(s) 08/16/2020 1:32 PM Advance Directive(s) 08/06/2020 9:17 AM Advance Directive(s) 05/05/2019 11:23 AM Advance Directive(s) 05/05/2019 11:27 AM Advance Directive(s) 03/17/2019 2:21 PM Advance Directive(s) 12/15/2018 11:36 AM Advance Directive(s) 11/23/2018 2:18 PM Advance Directive(s) 10/04/2018 7:45 AM Advance Directive(s) 11/09/2017 7:52 AM Advance Directive Response Recorded Date/ Time Advance Directives Yes June 20, 2017 8:56pm Living Will No February 16, 2022 6:26pm Power of Perinatal Director No January 6:26pm Advance Directive Response Recorded Date/ Time Advance Directives Yes June 20, 2017 8:56pm Living Will No February 21, 2022 1:16am Power of Perinatal Director No January 1:16am Advance Directive Response Recorded Date/ Time Advance Directives Yes June 20, 2017 8:56pm Living Will No February 28 5:40am Power of Perinatal Director No February 28 5:40am Documents on File Type Date Recorded Patient Paper Sorter And Counter Expl anation Advance Directive(s) 08/28/2022 2:42 PM Documents on File Type Date Recorded Patient Paper Sorter And Counter Expl anation Advance Directive(s) 08/28/2022 2:42 PM Advance Directive Response Recorded Date/ Time Advance Directives Yes June 20, 2017 8:56pm Living Will Yes February 26, 2023 5:38pm Power of Perinatal Director Yes January 5:38pm Name of Medical Power of Perinatal Director Reynaldo Davenport February 26, 2023 5:38pm Advance Directive Response Recorded Date/ Time Name of Medical Power of Perinatal Director Reynaldo Davenport February 26, 2023 4:38pm Name of Medical Power of Perinatal Director hardy black--[phone] June 12, 2023 7:20pm Advance Directives Yes June 20, 2017 7:56pm Living Will Yes June 12 7:20pm Power of Perinatal Director Yes June 12, 2023 7:20pm Documents on File Type Date Recorded Patient Paper Sorter And Counter Expl anation Advance Directive(s) 08/28/2022 2:42 PM Hardy Timderek Documents on File Type Date Recorded Patient Paper Sorter And Counter Expl anation Advance Directive(s) 08/28/2022 2:42 PM Hardy Wayne Date Activated Date Inactivated Comments 05/06/2024 5:25 AM Question Answer Comments Full Code Order Discussed With: Patient Date Activated Date Inactivated Comments 05/08/2024 11:35 AM Question Answer Comments DNR Order Discussed With: Surrogate Decision Cesario er Surrogate Decision Maker Name: hardynano cardoso Surrogate Decision Maker Relationship: Health Ca re Power of Perinatal Director Agent Date Activated Date Inactivated Comments 05/08/2024 11:15 AM 05/08/2024 11:35 AM Question Answer Comments DNR Order Discussed With: Surrogate Decision Cesario er Surrogate Decision Maker Name: Hardy Black Surrogate Decision Maker Phone: [phone] Date Activated Date Inactivated Comments 05/06/2024 5:25 AM 05/08/2024 11:15 AM Question Answer Comments Full Code Order Discussed With: Patient Date Activated Date Inactivated Comments 05/08/2024 11:35 AM 05/20/2024 3:09 AM Date Activated Date Inactivated Comments 05/08/2024 11:35 AM 05/20/2024 3:09 AM Question Answer Comments DNR Order Discussed With: Surrogate Decision Cesario er Surrogate Decision Maker Name: hardy cardoso Surrogate Decision Maker Relationship: Health Ca re Power of Perinatal Director Agent Date Activated Date Inactivated Comments 05/08/2024 11:15 AM 05/08/2024 11:35 AM Question Answer Comments DNR Order Discussed With: Surrogate Decision Cesario ramirez Surrogate Decision Maker Name: Hardy Black Surrogate Decision Maker Phone: [phone] Date Activated Date Inactivated Comments 05/06/2024 5:25 AM 05/08/2024 11:15 AM Question Answer Comments Full Code Order Discussed With: Patient Advance Directive Response Recorded Date/ Time Living Will Yes May 05 11:59pm Do you have a Healthcare Power of Perinatal Director? Yes May 05, 2024 11:59pm Name of Medical Power of Perinatal Director HARDY May 05, 2024 11:59pm Advance Directives Yes June 20, 2017 8:56pm Advance Directive Response Recorded Date/ Time Advance Directives Yes June 20, 2017 8:56pm Procedure Findings Note HNO ID: [id number] Author: Candie Prado Service: Urogynecology Author Type: Physician Type: Operative Report Filed: 06/12/2019 9:29 AM Note Text: OPERATIVE / PROCEDURE NOTE LOG ID: [id number] Surgery/Procedure Date: 06/12/2019 Incision/Procedure Start Time: 7:46 AM Incision Close/Procedure End Time: 8:06 AM Surgeon(s)/Proceduralist(s) and Production Corrugator(s): Surgeon(s) and Role: * Esther Prado - Primary * Chaparrita Waite MD (Fel) - Fellow No Additional Staff Procedure(s): Exam under anesthesia, Vulvar biopsies Anesthesia: MAC Findings: 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 Extensive erythema with beefy red and inflammed appearing labia majora and perianal skin in a [id number] pattern. Skin is shiny and taut. Mildly thickened, white, stellate lesions noted at 9:00 and 3:00 on the labia majora (each approximately 8 mm in size) and 7:00 at the region of the labia minora about 1.5 cm distal to the introitus (approx 10 mm in size), and las (more content not included)... 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 Extensive erythema with beefy red and inflammed appearing labia majora and perianal skin in a bzqvks-[id number]-pzvwz pattern. Mildly thickened, white, stellate lesions noted [...] 1:15 PM EDT 1,000 mcg Deltoid, Left Given 08/08/2021 9:17 AM EST 1,000 mcg De ltoid, Left Given 06/09/2021 1:37 PM EST 1,000 mcg De ltoid, Left Active Administered Medications - up to 3 most recent administrations Medication Order MAR Action Action Date Dose Rate Site cyanocobalamin 1,000 mcg injection 1,000 mcg, INTRAMUSCULAR, EVERY 1 MONTH, 12 doses, First dose on Wed02/04/21 at 0000, Last dose on Wed12/31/21 at 0000 Given 11/03/2021 1:13 PM EDT 1,000 mcg Deltoid, Left Given 10/06/2021 2:47 PM EDT 1,000 mcg De ltoid, Left Given 09/01/2021 1:15 PM EDT 1,000 mcg De ltoid, Left Active Administered Medications - up to 3 most recent administrations Medication Order MAR Action Action Date Dose Rate Site cyanocobalamin 1,000 mcg injection 1,000 mcg, INTRAMUSCULAR, EVERY 1 MONTH, 12 doses, First dose on Wed02/04/21 at 0000, Last dose on Wed12/31/21 at 0000 Given 01/05/2022 1:05 PM EDT 1,000 mcg Deltoid, Left Given 12/04/2021 11:01 AM EDT 1,000 mcg D eltoid, Left Given 11/03/2021 1:13 PM EDT 1,000 mcg De ltoid, Left Active Administered Medications - up to [...] 1:31 PM EDT 1,000 mcg Deltoid, Right Given 02/10/2022 1:39 PM EDT 1,000 mcg De ltoid, Left Active Administered Medications - up to 3 most recent administrations Medication Order MAR Action Action Date Dose Rate Site cyanocobalamin 1,000 mcg injection 1,000 mcg, INTRAMUSCULAR, EVERY 1 MONTH, 12 doses, First dose on Wed02/03/22 at 0000, Last dose on Wed12/30/22 at 0000 Given 04/06/2022 1:48 PM EST 1,000 mcg Deltoid, Left Given 03/02/2022 1:31 PM EDT 1,000 mcg De ltoid, Right Given 02/10/2022 1:39 PM EDT 1,000 mcg De ltoid, Left Active Administered Medications - up to 3 most recent administrations Medication Order MAR Action Action Date Dose Rate Site cyanocobalamin 1,000 mcg injection 1,000 mcg, INTRAMUSCULAR, EVERY 1 MONTH, 12 doses, First dose on Wed02/03/22 at 0000, Last dose on Wed12/30/22 at 0000 Given 05/04/2022 1:41 PM EST 1,000 mcg Deltoid, Left Given 04/06/2022 1:48 PM EST 1,000 mcg De ltoid, Left Given 03/02/2022 1:31 PM EDT 1,000 mcg De ltoid, Right Inactive Administered Medications - up to 3 [...] 500 mg, ORAL, ONCE, 1 dose, On Wed06/11/22 at 1200, One tab prior to procedure [...] 1:30 PM EST 1,000 mcg Deltoid, Left Given 05/04/2022 1:41 PM EST 1,000 mcg De ltoid, Left Given 04/06/2022 1:48 PM EST 1,000 mcg De ltoid, Left Active Administered Medications - up to 3 most recent administrations Medication Order MAR Action Action Date Dose Rate Site cyanocobalamin 1,000 mcg injection 1,000 mcg, INTRAMUSCULAR, EVERY 1 MONTH, 12 doses, First dose on Wed02/03/22 at 0000, Last dose on Wed12/30/22 at 0000 Given 08/04/2022 1:31 PM EST 1,000 mcg Deltoid, Left Given 07/07/2022 1:30 PM EST 1,000 mcg De ltoid, Left Given 05/04/2022 1:41 PM EST 1,000 mcg De ltoid, Left Active Administered Medications - up to 3 most recent administrations Medication Order MAR Action Action Date Dose Rate Site cyanocobalamin 1,000 mcg injection 1,000 mcg, INTRAMUSCULAR, EVERY 1 MONTH, 12 doses, First dose on Wed02/03/22 at 0000, Last dose on Wed12/30/22 at 0000 Given 09/01/2022 1:10 PM EDT 1,000 mcg Deltoid, Left Given 08/04/2022 1:31 PM EST 1,000 mcg De ltoid, Left Given 07/07/2022 1:30 PM EST 1,000 mcg De ltoid, Left Active Administered Medications - up to 3 most recent administrations Medication Order MAR Action Action Date Dose Rate Site cyanocobalamin 1,000 mcg injection 1,000 mcg, INTRAMUSCULAR, EVERY 1 MONTH, 12 doses, First dose on Wed02/03/22 at 0000, Last dose on Wed12/30/22 at 0000 Given 09/29/2022 1:04 PM EDT 1,000 mcg Deltoid, Left Given 09/01/2022 1:10 PM EDT 1,000 mcg De ltoid, Left Given 08/04/2022 1:31 PM EST 1,000 mcg De ltoid, Left Active Administered Medications - up to 3 most recent administrations Medication Order MAR Action Action Date Dose Rate Site cyanocobalamin 1,000 mcg injection 1,000 mcg, INTRAMUSCULAR, EVERY 1 MONTH, 12 doses, First dose on Wed02/03/22 at 0000, Last dose on Wed12/30/22 at 0000 Given 11/03/2022 1:13 PM EDT 1,000 mcg Deltoid, Left Given 09/29/2022 1:04 PM EDT 1,000 mcg De ltoid, Left Given 09/01/2022 1:10 PM EDT 1,000 mcg De ltoid, Left Active Administered Medications - up to 3 most recent administrations Medication Order MAR Action Action Date Dose Rate Site cyanocobalamin 1,000 mcg injection 1,000 mcg, INTRAMUSCULAR, EVERY 1 MONTH, 12 doses, First dose on Wed02/03/22 at 0000, Last dose on Wed12/30/22 at 0000 Given 01/04/2023 1:31 PM EDT 1,000 mcg Deltoid, Left Given 11/03/2022 1:13 PM EDT 1,000 mcg De ltoid, Left Given 09/29/2022 1:04 PM EDT 1,000 mcg De ltoid, Left Inactive Administered Medications - up to 3 most recent administrations Medication Order MAR Action Action Date Dose Rate Site regadenoson 0.4 mg injection (LEXISCAN) 0.4 mg, INTRAVENOUS, ONCE, 1 dose, On Wed01/28/23 at 1000, Give 0.4 mg (5 mL) [...] 1 MONTH, 12 doses, First dose on Wed02/04/23 at 0000, Last dose on Wed12/31/23 at 0000 Given 02/04/2023 1:42 PM EDT 1,000 mcg Deltoid, Left Active Administered Medications - up to 3 most recent administrations Medication Order MAR Action Action Date Dose Rate Site cyanocobalamin 1,000 mcg injection 1,000 mcg, INTRAMUSCULAR, EVERY 1 MONTH, 12 doses, First dose on Wed02/04/23 at 0000, Last dose on Wed12/31/23 at 0000 Given 03/04/2023 1:31 PM EDT 1,000 mcg Deltoid, Left Given 02/04/2023 1:42 PM EDT 1,000 mcg De ltoid, Left Active Administered Medications - up to 3 most recent administrations Medication Order MAR Action Action Date Dose Rate Site cyanocobalamin 1,000 mcg injection 1,000 mcg, INTRAMUSCULAR, EVERY 1 MONTH, 12 doses, First dose on Wed02/04/23 at 0000, Last dose on Wed12/31/23 at 0000 Given 05/04/2023 1:25 PM EST 1,000 mcg Deltoid, Left Given 04/05/2023 1:33 PM EST 1,000 mcg De ltoid, Left Given 03/04/2023 1:31 PM EDT 1,000 mcg De ltoid, Left Chief Complaint and Reason for Visit Chief Complaint CHEST PAIN Chief Complaint CHEST PAIN FSLL Chief Complaint CHEST PAIN FSLL abdominal pain Chief Complaint fall Chief Complaint fall weakness Chief Complaint Admit Date fallMay 05, 2024 1 0:59pm LAB WORK May 22, 2024 5:00am LAB WORK May 23, 2024 12:15am LAB WORK May 29, 2024 5:00am LABWORK June 05, 2024 5: 00am SHELTER LAB WORK June 09, 2024 5:45am SHELTER LAB WORK June 20, 2024 5:00am LAB WORK July 10, 2024 4:00am LAB WORK July 25, 2024 4:00am SHELTER LAB WORK August 08, 2024 5 :00am Chief Complaint Admit Date fallMay 05, 2024 1 0:59pm LAB WORK May 22, 2024 5:00am LAB WORK May 23, 2024 12:15am LAB WORK May 29, 2024 5:00am LABWORK June 05, 2024 5: 00am SHELTER LAB WORK June 09, 2024 5:45am SHELTER LAB WORK June 20, 2024 5:00am LAB WORK July 10, 2024 4:00am LAB WORK July 25, 2024 4:00am SHELTER LAB WORK August 08, 2024 5 :00am SHELTER LAB WORK August 11, 2024 5 :00am Chief Complaint Admit Date SHELTER LAB WORK June 20, 2024 5:00am LAB WORK July 10, 2024 4:00am LAB WORK July 25, 2024 4:00am SHELTER LAB WORK August 08, 2024 5 :00am SHELTER LAB WORK August 11, 2024 5 :00am LABWORK September 21, 2024 5:0 0am Reason for Referral Specialty Diagnoses / Procedures Referred By Contac t Referred To Contact Orthopedics Diagnoses Open fracture of tuft of distal phalanx of finger Procedures CONSULT PANEL TO ORTHOPAEDICS OFFICE/OUTPATIENT [facility] 60-74 MINUTES Janae Sandoval, GM.REMOTE SENSING RESEARCH SCIENTIST [address] [place] [address] Referral ID Status Reason Start Date Expiration Date Visits Requested Visits Authorized [id number] Pending Review PCP Requested Referral 05/06/2022 05/06/2023 1 1 Specialty Diagnoses / Procedures Referred By Contac t Referred To Contact XR IMAGING Diagnoses Crushing injury of right middle finger, initial encounter Procedures XR DIGIT GENERAL 3V FRONTAL/LAT/OBL RIGHT RADEX FINGR MINIMUM 2 VIEWS Janae Sandoval, GM.REMOTE SENSING RESEARCH SCIENTIST [address] [place] [address] [facility] Referral ID Status Reason Start Date Expiration Date V isits Requested Visits Authorized [id number] Closed Auto-Generate d Referral 05/06/2022 06/05/2023 1 1 Specialty Diagnoses / Procedures Referred By Contac t Referred To Contact [facility] Diagnoses Spinal stenosis of lumbar region, unspecified whether neurogenic claudication present Lumbar spondylosis Radiculopathy, lumbar region Spondylolisthesis of lumbar region Procedures CONSULT TO PHYSICAL THERAPY PHYSICAL THERAPY EVALUATION HIGH COMPLEX 45 MINS Oralia Garcia, LEAD MINER.REMOTE SENSING RESEARCH SCIENTIST [address] [place] [address] [facility] [place] [address] [place] [address] Referral ID Status Reason Start Date Expiration Date Visits Requested Visits Authorized [id number] Pending Review Auto-Generat ed Referral 08/04/2022 08/04/2023 1 1 Specialty Diagnoses / Procedures Referred By Contac t Referred To Contact [facility] Diagnoses Spinal stenosis of lumbar region, unspecified whether neurogenic claudication present Lumbar spondylosis Radiculopathy, lumbar region Spondylolisthesis of lumbar region Procedures PT REHAB FOLLOW UP ORDER THERAPEUTIC EXERCISES RE, EA 15 MIN. Pt [facility] [address] [place] [address] [facility] [place] [address] [place] [address] Referral ID Status Reason Start Date Expiration Date Visits Requested Visits Authorized [id number] Pending Review PCP Requested Referral Auto-Generate d Referral 08/18/2022 11/16/2022 1 1 Specialty Diagnoses / Procedures Referred By Contac t Referred To Contact Cardiology Diagnoses Irregular heart rhythm FIELD (dyspnea on exertion) Premature atrial complexes Procedures CONSULT TO CARDIOLOGY OFFICE/OUTPATIENT [facility] 60-74 MINUTES Guillaume Dominguez MD [address] [place] [address] Maykel Whitfield, [address] [address] Referral ID Status Reason Start Date Expiration Date Visits Requested Visits Authorized [id number] Pending Review PCP Requested Referral 08/15/2022 08/15/2023 1 1 Specialty Diagnoses / Procedures Referred By Contac t Referred To Contact [facility] Diagnoses Bilateral carotid artery stenosis Procedures US CAROTID ARTERIES POLO VAS LAB DUPLEX SCAN EXTRACRANIAL ART COMPL BI STUDY Guillaume Dominguez MD [address] [place] [address] [facility] [place] [address] [place] [address] Referral ID Status Reason Start Date Expiration Date Visits Requested Visits Authorized [id number] Pending Review Auto-Generat ed Referral 08/15/2022 08/15/2023 1 1 Specialty Diagnoses / Procedures Referred By Contac t Referred To Contact [facility] Diagnoses Irregular heart rhythm FIELD (dyspnea on exertion) Procedures ECG COMPLETE ECG ROUTINE ECG W/LEAST 12 LDS W/I&R Guillaume Dominguez MD [address] [place] [address] [facility] [place] [facility] [address] [place] [address] Referral ID Status Reason Start Date Expiration Date V isits Requested Visits Authorized [id number] Closed Auto-Generate d Referral 08/15/2022 08/15/2023 1 1 Specialty Diagnoses / Procedures Referred By Contac t Referred To Contact [facility] Diagnoses Spinal stenosis of lumbar region, unspecified whether neurogenic claudication present Lumbar spondylosis Spondylolisthesis of lumbar region Radiculopathy, lumbar region Procedures PT REHAB FOLLOW UP ORDER THERAPEUTIC EXERCISES RE, EA 15 MIN. Self [facility] [place] [facility] [address] [place] [address] Referral ID Status Reason Start Date Expiration Date V isits Requested Visits Authorized [id number] Closed PCP Requested Referral Auto-Generated Referral 09/17/2022 12/16/2022 1 1 Specialty Diagnoses / Procedures Referred By Contac t Referred To Contact [facility] Diagnoses Breast cancer screening by mammogram Procedures ARTIS SCREENING SCREENING MAMMOGRAPHY BI 2-VIEW BREAST INC CAD Guillaume Dominguez MD [address] [place] [address] [facility] [address] [place] [address] Referral ID Status Reason Start Date Expiration Date Visits Requested Visits Authorized [id number] Pending Review Auto-Generat ed Referral 3 08/12/2023 3 1 Specialty Diagnoses / Procedures Referred By Contac t Referred To Contact Diagnoses Mild cognitive impairment Procedures CONSULT TO [facility] OFFICE/OUTPATIENT [facility] 60 MINUTES Martha Germain DO [address] [place] [address] Referral ID Status Reason Start Date Expiration Date Visits Requested Visits Authorized [id number] Authorized PCP Requested Referral 08/11/2023 08/10/2024 1 1 Specialty Diagnoses / Procedures Referred By Contac t Referred To Contact Gerontology Diagnoses Mild cognitive impairment Procedures CONSULT TO GERIATRICS OFFICE/OUTPATIENT [facility] 60 MINUTES Martha Germain DO [address] [place] [address] Referral ID Status Reason Start Date Expiration Date Visits Requested Visits Authorized [id number] Authorized PCP Requested Referral 08/11/2023 08/10/2024 1 1 Specialty Diagnoses / Procedures Referred By Contac t Referred To Contact Radha Walters MD [address] [place] [address] Referral ID Status Reason Start Date Expiration Date V isits Requested Visits Authorized [id number] Authorized 05/31/2023 05/30/2024 1 1 Specialty Diagnoses / Procedures Referred By Contac t Referred To Contact Gerontology Diagnoses Cognitive impairment Procedures CONSULT TO GERIATRICS OFFICE/OUTPATIENT [facility] 60 MINUTES Guillaume Dominguez MD [address] [place] [address] Damaris Knott MD [address] [place] [address] Referral ID Status Reason Start Date Expiration Date Visits Requested Visits Authorized [id number] Authorized PCP Requested Referral 12/10/2023 12/09/2024 1 1 Additional Source Comments INFORMATION SOURCE (unrecogn ized section and content) DATE CREATED AUTHOR 11/18/2017 [facility] DATE CREATED AUTHOR AUTHOR'S ORGANIZ ATION 10/17/2018 [facility] DATE CREATED AUTHOR AUTHOR'S ORGANIZ ATION 06/27/2019 [facility] DATE CREATED AUTHOR AUTHOR'S ORGANIZ ATION 03/31/2024 [facility] DATE CREATED AUTHOR AUTHOR'S ORGANIZ ATION 08/04/2024 [facility] DATE CREATED AUTHOR AUTHOR'S ORGANIZ ATION 08/05/2024 [facility] DATE CREATED AUTHOR AUTHOR'S ORGANIZ ATION 10/25/2024 [facility] DATE CREATED AUTHOR AUTHOR'S ORGANIZ ATION 10/29/2024 [facility] Source Comments (unrecognize d section and content) In the event this informatio n is protected by the Federal Confidentiality of Alcohol and Drug Abuse Patient Records regulations: The Federal rules restrict any use of the information to criminally investigate or prosecute any alcohol or drug abuse patient.[facility] the event this information is protected by the Federal Confidentiality of Alcohol and Drug Abuse Patient Records regulations: The Federal rules restrict any use of the information to criminally investigate or prosecute any alcohol or drug abuse patient.[facility]In the event this information is protected by the Federal Confidentiality of Alcohol and Drug Abuse Patient Records regulations: The Federal rules restrict any use of the information to criminally investigate or prosecute any alcohol or drug abuse patient.[facility] HospitalIn the event this information is protected by the Federal Confidentiality of Alcohol and Drug Abuse Patient Records regulations: The Federal rules restrict any use of the information to criminally investigate or prosecute any alcohol or drug abuse patient.[facility] HospitalIn the event this information is protected by the Federal Confidentiality of Alcohol and Drug Abuse Patient Records regulations: The Federal rules restrict any use of the information to criminally investigate or prosecute any alcohol or drug abuse patient.[facility] HospitalIn the event this information is protected by the Federal Confidentiality of Alcohol and Drug Abuse Patient Records regulations: The Federal rules restrict any use of the information to criminally investigate or prosecute any alcohol or drug abuse patient.[facility] HospitalIn the event this information is protected by the Federal Confidentiality of Alcohol and Drug Abuse Patient Records regulations: The Federal rules restrict any use of the information to criminally investigate or prosecute any alcohol or drug abuse patient.[facility] HospitalIn the event this information is protected by the Federal Confidentiality of Alcohol and Drug Abuse Patient Records regulations: The Federal rules restrict any use of the information to criminally investigate or prosecute any alcohol or drug abuse patient.[facility] HospitalIn the event this information is protected by the Federal Confidentiality of Alcohol and Drug Abuse Patient Records regulations: The Federal rules restrict any use of the information to criminally investigate or prosecute any alcohol or drug abuse patient.[facility] HospitalIn the event this information is protected by the Federal Confidentiality of Alcohol and Drug Abuse Patient Records regulations: The Federal rules restrict any use of the information to criminally investigate or prosecute any alcohol or drug abuse patient.[facility] HospitalIn the event this information is protected by the Federal Confidentiality of Alcohol and Drug Abuse Patient Records regulations: The Federal rules restrict any use of the information to criminally investigate or prosecute any alcohol or drug abuse patient.[facility] HospitalIn the event this information is protected by the Federal Confidentiality of Alcohol and Drug Abuse Patient Records regulations: The Federal rules restrict any use of the information to criminally investigate or prosecute any alcohol or drug abuse patient.[facility] HospitalIn the event this information is protected by the Federal Confidentiality of Alcohol and Drug Abuse Patient Records regulations: The Federal rules restrict any use of the information to criminally investigate or prosecute any alcohol or drug abuse patient.[facility] HospitalIn the event this information is protected by the Federal Confidentiality of Alcohol and Drug Abuse Patient Records regulations: The Federal rules restrict any use of the information to criminally investigate or prosecute any alcohol or drug abuse patient.[facility] HospitalIn the event this information is protected by the Federal Confidentiality of Alcohol and Drug Abuse Patient Records regulations: The Federal rules restrict any use of the information to criminally investigate or prosecute any alcohol or drug abuse patient.[facility] HospitalIn the event this information is protected by the Federal Confidentiality of Alcohol and Drug Abuse Patient Records regulations: The Federal rules restrict any use of the information to criminally investigate or prosecute any alcohol or drug abuse patient.[facility] HospitalIn the event this information is protected by the Federal Confidentiality of Alcohol and Drug Abuse Patient Records regulations: The Federal rules restrict any use of the information to criminally investigate or prosecute any alcohol or drug abuse patient.[facility] HospitalIn the event this information is protected by the Federal Confidentiality of Alcohol and Drug Abuse Patient Records regulations: The Federal rules restrict any use of the information to criminally investigate or prosecute any alcohol or drug abuse patient.[facility] HospitalIn the event this information is protected by the Federal Confidentiality of Alcohol and Drug Abuse Patient Records regulations: The Federal rules restrict any use of the information to criminally investigate or prosecute any alcohol or drug abuse patient.[facility] HospitalIn the event this information is protected by the Federal Confidentiality of Alcohol and Drug Abuse Patient Records regulations: The Federal rules restrict any use of the information to criminally investigate or prosecute any alcohol or drug abuse patient.[facility] HospitalIn the event this information is protected by the Federal Confidentiality of Alcohol and Drug Abuse Patient Records regulations: The Federal rules restrict any use of the information to criminally investigate or prosecute any alcohol or drug abuse patient.[facility] HospitalIn the event this information is protected by the Federal Confidentiality of Alcohol and Drug Abuse Patient Records regulations: The Federal rules restrict any use of the information to criminally investigate or prosecute any alcohol or drug abuse patient.[facility] HospitalIn the event this information is protected by the Federal Confidentiality of Alcohol and Drug Abuse Patient Records regulations: The Federal rules restrict any use of the information to criminally investigate or prosecute any alcohol or drug abuse patient.[facility] HospitalIn the event this information is protected by the Federal Confidentiality of Alcohol and Drug Abuse Patient Records regulations: The Federal rules restrict any use of the information to criminally investigate or prosecute any alcohol or drug abuse patient.[facility] HospitalIn the event this information is protected by the Federal Confidentiality of Alcohol and Drug Abuse Patient Records regulations: The Federal rules restrict any use of the information to criminally investigate or prosecute any alcohol or drug abuse patient.[facility] HospitalIn the event this information is protected by the Federal Confidentiality of Alcohol and Drug Abuse Patient Records regulations: The Federal rules restrict any use of the information to criminally investigate or prosecute any alcohol or drug abuse patient.[facility] HospitalIn the event this information is protected by the Federal Confidentiality of Alcohol and Drug Abuse Patient Records regulations: The Federal rules restrict any use of the information to criminally investigate or prosecute any alcohol or drug abuse patient.[facility] HospitalIn the event this information is protected by the Federal Confidentiality of Alcohol and Drug Abuse Patient Records regulations: The Federal rules restrict any use of the information to criminally investigate or prosecute any alcohol or drug abuse patient.[facility] HospitalIn the event this information is protected by the Federal Confidentiality of Alcohol and Drug Abuse Patient Records regulations: The Federal rules restrict any use of the information to criminally investigate or prosecute any alcohol or drug abuse patient.[facility] HospitalIn the event this information is protected by the Federal Confidentiality of Alcohol and Drug Abuse Patient Records regulations: The Federal rules restrict any use of the information to criminally investigate or prosecute any alcohol or drug abuse patient.[facility] HospitalIn the event this information is protected by the Federal Confidentiality of Alcohol and Drug Abuse Patient Records regulations: The Federal rules restrict any use of the information to criminally investigate or prosecute any alcohol or drug abuse patient.[facility] HospitalIn the event this information is protected by the Federal Confidentiality of Alcohol and Drug Abuse Patient Records regulations: The Federal rules restrict any use of the information to criminally investigate or prosecute any alcohol or drug abuse patient.[facility] HospitalIn the event this information is protected by the Federal Confidentiality of Alcohol and Drug Abuse Patient Records regulations: The Federal rules restrict any use of the information to criminally investigate or prosecute any alcohol or drug abuse patient.[facility] HospitalIn the event this information is protected by the Federal Confidentiality of Alcohol and Drug Abuse Patient Records regulations: The Federal rules restrict any use of the information to criminally investigate or prosecute any alcohol or drug abuse patient.[facility] HospitalIn the event this information is protected by the Federal Confidentiality of Alcohol and Drug Abuse Patient Records regulations: The Federal rules restrict any use of the information to criminally investigate or prosecute any alcohol or drug abuse patient.[facility] HospitalIn the event this information is protected by the Federal Confidentiality of Alcohol and Drug Abuse Patient Records regulations: The Federal rules restrict any use of the information to criminally investigate or prosecute any alcohol or drug abuse patient.[facility] HospitalIn the event this information is protected by the Federal Confidentiality of Alcohol and Drug Abuse Patient Records regulations: The Federal rules restrict any use of the information to criminally investigate or prosecute any alcohol or drug abuse patient.[facility] HospitalIn the event this information is protected by the Federal Confidentiality of Alcohol and Drug Abuse Patient Records regulations: The Federal rules restrict any use of the information to criminally investigate or prosecute any alcohol or drug abuse patient.[facility] HospitalIn the event this information is protected by the Federal Confidentiality of Alcohol and Drug Abuse Patient Records regulations: The Federal rules restrict any use of the information to criminally investigate or prosecute any alcohol or drug abuse patient.[facility] HospitalIn the event this information is protected by the Federal Confidentiality of Alcohol and Drug Abuse Patient Records regulations: The Federal rules restrict any use of the information to criminally investigate or prosecute any alcohol or drug abuse patient.[facility] HospitalIn the event this information is protected by the Federal Confidentiality of Alcohol and Drug Abuse Patient Records regulations: The Federal rules restrict any use of the information to criminally investigate or prosecute any alcohol or drug abuse patient.[facility] HospitalIn the event this information is protected by the Federal Confidentiality of Alcohol and Drug Abuse Patient Records regulations: The Federal rules restrict any use of the information to criminally investigate or prosecute any alcohol or drug abuse patient.[facility] HospitalIn the event this information is protected by the Federal Confidentiality of Alcohol and Drug Abuse Patient Records regulations: The Federal rules restrict any use of the information to criminally investigate or prosecute any alcohol or drug abuse patient.[facility] HospitalIn the event this information is protected by the Federal Confidentiality of Alcohol and Drug Abuse Patient Records regulations: The Federal rules restrict any use of the information to criminally investigate or prosecute any alcohol or drug abuse patient.[facility] HospitalIn the event this information is protected by the Federal Confidentiality of Alcohol and Drug Abuse Patient Records regulations: The Federal rules restrict any use of the information to criminally investigate or prosecute any alcohol or drug abuse patient.[facility] HospitalIn the event this information is protected by the Federal Confidentiality of Alcohol and Drug Abuse Patient Records regulations: The Federal rules restrict any use of the information to criminally investigate or prosecute any alcohol or drug abuse patient.[facility] HospitalIn the event this information is protected by the Federal Confidentiality of Alcohol and Drug Abuse Patient Records regulations: The Federal rules restrict any use of the information to criminally investigate or prosecute any alcohol or drug abuse patient.[facility] HospitalIn the event this information is protected by the Federal Confidentiality of Alcohol and Drug Abuse Patient Records regulations: The Federal rules restrict any use of the information to criminally investigate or prosecute any alcohol or drug abuse patient.[facility] HospitalIn the event this information is protected by the Federal Confidentiality of Alcohol and Drug Abuse Patient Records regulations: The Federal rules restrict any use of the information to criminally investigate or prosecute any alcohol or drug abuse patient.[facility] HospitalIn the event this information is protected by the Federal Confidentiality of Alcohol and Drug Abuse Patient Records regulations: The Federal rules restrict any use of the information to criminally investigate or prosecute any alcohol or drug abuse patient.[facility] HospitalIn the event this information is protected by the Federal Confidentiality of Alcohol and Drug Abuse Patient Records regulations: The Federal rules restrict any use of the information to criminally investigate or prosecute any alcohol or drug abuse patient.[facility] HospitalIn the event this information is protected by the Federal Confidentiality of Alcohol and Drug Abuse Patient Records regulations: The Federal rules restrict any use of the information to criminally investigate or prosecute any alcohol or drug abuse patient.[facility] HospitalIn the event this information is protected by the Federal Confidentiality of Alcohol and Drug Abuse Patient Records regulations: The Federal rules restrict any use of the information to criminally investigate or prosecute any alcohol or drug abuse patient.[facility] HospitalIn the event this information is protected by the Federal Confidentiality of Alcohol and Drug Abuse Patient Records regulations: The Federal rules restrict any use of the information to criminally investigate or prosecute any alcohol or drug abuse patient.[facility] HospitalIn the event this information is protected by the Federal Confidentiality of Alcohol and Drug Abuse Patient Records regulations: The Federal rules restrict any use of the information to criminally investigate or prosecute any alcohol or drug abuse patient.[facility] HospitalIn the event this information is protected by the Federal Confidentiality of Alcohol and Drug Abuse Patient Records regulations: The Federal rules restrict any use of the information to criminally investigate or prosecute any alcohol or drug abuse patient.[facility] HospitalIn the event this information is protected by the Federal Confidentiality of Alcohol and Drug Abuse Patient Records regulations: The Federal rules restrict any use of the information to criminally investigate or prosecute any alcohol or drug abuse patient.[facility] HospitalIn the event this information is protected by the Federal Confidentiality of Alcohol and Drug Abuse Patient Records regulations: The Federal rules restrict any use of the information to criminally investigate or prosecute any alcohol or drug abuse patient.[facility] HospitalIn the event this information is protected by the Federal Confidentiality of Alcohol and Drug Abuse Patient Records regulations: The Federal rules restrict any use of the information to criminally investigate or prosecute any alcohol or drug abuse patient.[facility] HospitalIn the event this information is protected by the Federal Confidentiality of Alcohol and Drug Abuse Patient Records regulations: The Federal rules restrict any use of the information to criminally investigate or prosecute any alcohol or drug abuse patient.[facility] HospitalIn the event this information is protected by the Federal Confidentiality of Alcohol and Drug Abuse Patient Records regulations: The Federal rules restrict any use of the information to criminally investigate or prosecute any alcohol or drug abuse patient.[facility] HospitalIn the event this information is protected by the Federal Confidentiality of Alcohol and Drug Abuse Patient Records regulations: The Federal rules restrict any use of the information to criminally investigate or prosecute any alcohol or drug abuse patient.[facility] HospitalIn the event this information is protected by the Federal Confidentiality of Alcohol and Drug Abuse Patient Records regulations: The Federal rules restrict any use of the information to criminally investigate or prosecute any alcohol or drug abuse patient.[facility] HospitalIn the event this information is protected by the Federal Confidentiality of Alcohol and Drug Abuse Patient Records regulations: The Federal rules restrict any use of the information to criminally investigate or prosecute any alcohol or drug abuse patient.[facility] HospitalIn the event this information is protected by the Federal Confidentiality of Alcohol and Drug Abuse Patient Records regulations: The Federal rules restrict any use of the information to criminally investigate or prosecute any alcohol or drug abuse patient.[facility] HospitalIn the event this information is protected by the Federal Confidentiality of Alcohol and Drug Abuse Patient Records regulations: The Federal rules restrict any use of the information to criminally investigate or prosecute any alcohol or drug abuse patient.[facility] HospitalIn the event this information is protected by the Federal Confidentiality of Alcohol and Drug Abuse Patient Records regulations: The Federal rules restrict any use of the information to criminally investigate or prosecute any alcohol or drug abuse patient.[facility] HospitalIn the event this information is protected by the Federal Confidentiality of Alcohol and Drug Abuse Patient Records regulations: The Federal rules restrict any use of the information to criminally investigate or prosecute any alcohol or drug abuse patient.[facility] HospitalIn the event this information is protected by the Federal Confidentiality of Alcohol and Drug Abuse Patient Records regulations: The Federal rules restrict any use of the information to criminally investigate or prosecute any alcohol or drug abuse patient.[facility] HospitalIn the event this information is protected by the Federal Confidentiality of Alcohol and Drug Abuse Patient Records regulations: The Federal rules restrict any use of the information to criminally investigate or prosecute any alcohol or drug abuse patient.[facility] HospitalIn the event this information is protected by the Federal Confidentiality of Alcohol and Drug Abuse Patient Records regulations: The Federal rules restrict any use of the information to criminally investigate or prosecute any alcohol or drug abuse patient.[facility] HospitalIn the event this information is protected by the Federal Confidentiality of Alcohol and Drug Abuse Patient Records regulations: The Federal rules restrict any use of the information to criminally investigate or prosecute any alcohol or drug abuse patient.[facility] HospitalIn the event this information is protected by the Federal Confidentiality of Alcohol and Drug Abuse Patient Records regulations: The Federal rules restrict any use of the information to criminally investigate or prosecute any alcohol or drug abuse patient.[facility] HospitalIn the event this information is protected by the Federal Confidentiality of Alcohol and Drug Abuse Patient Records regulations: The Federal rules restrict any use of the information to criminally investigate or prosecute any alcohol or drug abuse patient.[facility] HospitalIn the event this information is protected by the Federal Confidentiality of Alcohol and Drug Abuse Patient Records regulations: The Federal rules restrict any use of the information to criminally investigate or prosecute any alcohol or drug abuse patient.[facility] HospitalIn the event this information is protected by the Federal Confidentiality of Alcohol and Drug Abuse Patient Records regulations: The Federal rules restrict any use of the information to criminally investigate or prosecute any alcohol or drug abuse patient.[facility] HospitalIn the event this information is protected by the Federal Confidentiality of Alcohol and Drug Abuse Patient Records regulations: The Federal rules restrict any use of the information to criminally investigate or prosecute any alcohol or drug abuse patient.[facility] HospitalIn the event this information is protected by the Federal Confidentiality of Alcohol and Drug Abuse Patient Records regulations: The Federal rules restrict any use of the information to criminally investigate or prosecute any alcohol or drug abuse patient.[facility] HospitalIn the event this information is protected by the Federal Confidentiality of Alcohol and Drug Abuse Patient Records regulations: The Federal rules restrict any use of the information to criminally investigate or prosecute any alcohol or drug abuse patient.[facility] HospitalIn the event this information is protected by the Federal Confidentiality of Alcohol and Drug Abuse Patient Records regulations: The Federal rules restrict any use of the information to criminally investigate or prosecute any alcohol or drug abuse patient.[facility] HospitalIn the event this information is protected by the Federal Confidentiality of Alcohol and Drug Abuse Patient Records regulations: The Federal rules restrict any use of the information to criminally investigate or prosecute any alcohol or drug abuse patient.[facility] HospitalIn the event this information is protected by the Federal Confidentiality of Alcohol and Drug Abuse Patient Records regulations: The Federal rules restrict any use of the information to criminally investigate or prosecute any alcohol or drug abuse patient.[facility] HospitalIn the event this information is protected by the Federal Confidentiality of Alcohol and Drug Abuse Patient Records regulations: The Federal rules restrict any use of the information to criminally investigate or prosecute any alcohol or drug abuse patient.[facility] HospitalIn the event this information is protected by the Federal Confidentiality of Alcohol and Drug Abuse Patient Records regulations: The Federal rules restrict any use of the information to criminally investigate or prosecute any alcohol or drug abuse patient.[facility] HospitalIn the event this information is protected by the Federal Confidentiality of Alcohol and Drug Abuse Patient Records regulations: The Federal rules restrict any use of the information to criminally investigate or prosecute any alcohol or drug abuse patient.[facility] HospitalIn the event this information is protected by the Federal Confidentiality of Alcohol and Drug Abuse Patient Records regulations: The Federal rules restrict any use of the information to criminally investigate or prosecute any alcohol or drug abuse patient.[facility] HospitalIn the event this information is protected by the Federal Confidentiality of Alcohol and Drug Abuse Patient Records regulations: The Federal rules restrict any use of the information to criminally investigate or prosecute any alcohol or drug abuse patient.[facility] HospitalIn the event this information is protected by the Federal Confidentiality of Alcohol and Drug Abuse Patient Records regulations: The Federal rules restrict any use of the information to criminally investigate or prosecute any alcohol or drug abuse patient.[facility] HospitalIn the event this information is protected by the Federal Confidentiality of Alcohol and Drug Abuse Patient Records regulations: The Federal rules restrict any use of the information to criminally investigate or prosecute any alcohol or drug abuse patient.[facility] HospitalIn the event this information is protected by the Federal Confidentiality of Alcohol and Drug Abuse Patient Records regulations: The Federal rules restrict any use of the information to criminally investigate or prosecute any alcohol or drug abuse patient.[facility] HospitalIn the event this information is protected by the Federal Confidentiality of Alcohol and Drug Abuse Patient Records regulations: The Federal rules restrict any use of the information to criminally investigate or prosecute any alcohol or drug abuse patient.[facility] HospitalIn the event this information is protected by the Federal Confidentiality of Alcohol and Drug Abuse Patient Records regulations: The Federal rules restrict any use of the information to criminally investigate or prosecute any alcohol or drug abuse patient.[facility] HospitalIn the event this information is protected by the Federal Confidentiality of Alcohol and Drug Abuse Patient Records regulations: The Federal rules restrict any use of the information to criminally investigate or prosecute any alcohol or drug abuse patient.[facility] HospitalIn the event this information is protected by the Federal Confidentiality of Alcohol and Drug Abuse Patient Records regulations: The Federal rules restrict any use of the information to criminally investigate or prosecute any alcohol or drug abuse patient.[facility] HospitalIn the event this information is protected by the Federal Confidentiality of Alcohol and Drug Abuse Patient Records regulations: The Federal rules restrict any use of the information to criminally investigate or prosecute any alcohol or drug abuse patient.[facility] HospitalIn the event this information is protected by the Federal Confidentiality of Alcohol and Drug Abuse Patient Records regulations: The Federal rules restrict any use of the information to criminally investigate or prosecute any alcohol or drug abuse patient.[facility] HospitalIn the event this information is protected by the Federal Confidentiality of Alcohol and Drug Abuse Patient Records regulations: The Federal rules restrict any use of the information to criminally investigate or prosecute any alcohol or drug abuse patient.[facility] HospitalIn the event this information is protected by the Federal Confidentiality of Alcohol and Drug Abuse Patient Records regulations: The Federal rules restrict any use of the information to criminally investigate or prosecute any alcohol or drug abuse patient.[facility] HospitalIn the event this information is protected by the Federal Confidentiality of Alcohol and Drug Abuse Patient Records regulations: The Federal rules restrict any use of the information to criminally investigate or prosecute any alcohol or drug abuse patient.[facility] HospitalIn the event this information is protected by the Federal Confidentiality of Alcohol and Drug Abuse Patient Records regulations: The Federal rules restrict any use of the information to criminally investigate or prosecute any alcohol or drug abuse patient.[facility] HospitalIn the event this information is protected by the Federal Confidentiality of Alcohol and Drug Abuse Patient Records regulations: The Federal rules restrict any use of the information to criminally investigate or prosecute any alcohol or drug abuse patient.[facility] HospitalIn the event this information is protected by the Federal Confidentiality of Alcohol and Drug Abuse Patient Records regulations: The Federal rules restrict any use of the information to criminally investigate or prosecute any alcohol or drug abuse patient.[facility] HospitalIn the event this information is protected by the Federal Confidentiality of Alcohol and Drug Abuse Patient Records regulations: The Federal rules restrict any use of the information to criminally investigate or prosecute any alcohol or drug abuse patient.[facility] HospitalIn the event this information is protected by the Federal Confidentiality of Alcohol and Drug Abuse Patient Records regulations: The Federal rules restrict any use of the information to criminally investigate or prosecute any alcohol or drug abuse patient.[facility] HospitalIn the event this information is protected by the Federal Confidentiality of Alcohol and Drug Abuse Patient Records regulations: The Federal rules restrict any use of the information to criminally investigate or prosecute any alcohol or drug abuse patient.[facility] HospitalIn the event this information is protected by the Federal Confidentiality of Alcohol and Drug Abuse Patient Records regulations: The Federal rules restrict any use of the information to criminally investigate or prosecute any alcohol or drug abuse patient.[facility] HospitalIn the event this information is protected by the Federal Confidentiality of Alcohol and Drug Abuse Patient Records regulations: The Federal rules restrict any use of the information to criminally investigate or prosecute any alcohol or drug abuse patient.[facility] HospitalIn the event this information is protected by the Federal Confidentiality of Alcohol and Drug Abuse Patient Records regulations: The Federal rules restrict any use of the information to criminally investigate or prosecute any alcohol or drug abuse patient.[facility] HospitalIn the event this information is protected by the Federal Confidentiality of Alcohol and Drug Abuse Patient Records regulations: The Federal rules restrict any use of the information to criminally investigate or prosecute any alcohol or drug abuse patient.[facility] HospitalIn the event this information is protected by the Federal Confidentiality of Alcohol and Drug Abuse Patient Records regulations: The Federal rules restrict any use of the information to criminally investigate or prosecute any alcohol or drug abuse patient.[facility] HospitalIn the event this information is protected by the Federal Confidentiality of Alcohol and Drug Abuse Patient Records regulations: The Federal rules restrict any use of the information to criminally investigate or prosecute any alcohol or drug abuse patient.[facility] HospitalIn the event this information is protected by the Federal Confidentiality of Alcohol and Drug Abuse Patient Records regulations: The Federal rules restrict any use of the information to criminally investigate or prosecute any alcohol or drug abuse patient.[facility] HospitalIn the event this information is protected by the Federal Confidentiality of Alcohol and Drug Abuse Patient Records regulations: The Federal rules restrict any use of the information to criminally investigate or prosecute any alcohol or drug abuse patient.[facility] HospitalIn the event this information is protected by the Federal Confidentiality of Alcohol and Drug Abuse Patient Records regulations: The Federal rules restrict any use of the information to criminally investigate or prosecute any alcohol or drug abuse patient.[facility] HospitalIn the event this information is protected by the Federal Confidentiality of Alcohol and Drug Abuse Patient Records regulations: The Federal rules restrict any use of the information to criminally investigate or prosecute any alcohol or drug abuse patient.[facility] HospitalIn the event this information is protected by the Federal Confidentiality of Alcohol and Drug Abuse Patient Records regulations: The Federal rules restrict any use of the information to criminally investigate or prosecute any alcohol or drug abuse patient.[facility] HospitalIn the event this information is protected by the Federal Confidentiality of Alcohol and Drug Abuse Patient Records regulations: The Federal rules restrict any use of the information to criminally investigate or prosecute any alcohol or drug abuse patient.[facility] HospitalIn the event this information is protected by the Federal Confidentiality of Alcohol and Drug Abuse Patient Records regulations: The Federal rules restrict any use of the information to criminally investigate or prosecute any alcohol or drug abuse patient.[facility] HospitalIn the event this information is protected by the Federal Confidentiality of Alcohol and Drug Abuse Patient Records regulations: The Federal rules restrict any use of the information to criminally investigate or prosecute any alcohol or drug abuse patient.[facility] HospitalIn the event this information is protected by the Federal Confidentiality of Alcohol and Drug Abuse Patient Records regulations: The Federal rules restrict any use of the information to criminally investigate or prosecute any alcohol or drug abuse patient.[facility] HospitalIn the event this information is protected by the Federal Confidentiality of Alcohol and Drug Abuse Patient Records regulations: The Federal rules restrict any use of the information to criminally investigate or prosecute any alcohol or drug abuse patient.[facility] HospitalIn the event this information is protected by the Federal Confidentiality of Alcohol and Drug Abuse Patient Records regulations: The Federal rules restrict any use of the information to criminally investigate or prosecute any alcohol or drug abuse patient.[facility] HospitalIn the event this information is protected by the Federal Confidentiality of Alcohol and Drug Abuse Patient Records regulations: The Federal rules restrict any use of the information to criminally investigate or prosecute any alcohol or drug abuse patient.[facility] HospitalIn the event this information is protected by the Federal Confidentiality of Alcohol and Drug Abuse Patient Records regulations: The Federal rules restrict any use of the information to criminally investigate or prosecute any alcohol or drug abuse patient.[facility] HospitalIn the event this information is protected by the Federal Confidentiality of Alcohol and Drug Abuse Patient Records regulations: The Federal rules restrict any use of the information to criminally investigate or prosecute any alcohol or drug abuse patient.[facility] HospitalIn the event this information is protected by the Federal Confidentiality of Alcohol and Drug Abuse Patient Records regulations: The Federal rules restrict any use of the information to criminally investigate or prosecute any alcohol or drug abuse patient.[facility] HospitalIn the event this information is protected by the Federal Confidentiality of Alcohol and Drug Abuse Patient Records regulations: The Federal rules restrict any use of the information to criminally investigate or prosecute any alcohol or drug abuse patient.[facility] HospitalIn the event this information is protected by the Federal Confidentiality of Alcohol and Drug Abuse Patient Records regulations: The Federal rules restrict any use of the information to criminally investigate or prosecute any alcohol or drug abuse patient.[facility] HospitalIn the event this information is protected by the Federal Confidentiality of Alcohol and Drug Abuse Patient Records regulations: The Federal rules restrict any use of the information to criminally investigate or prosecute any alcohol or drug abuse patient.[facility] HospitalIn the event this information is protected by the Federal Confidentiality of Alcohol and Drug Abuse Patient Records regulations: The Federal rules restrict any use of the information to criminally investigate or prosecute any alcohol or drug abuse patient.[facility] HospitalIn the event this information is protected by the Federal Confidentiality of Alcohol and Drug Abuse Patient Records regulations: The Federal rules restrict any use of the information to criminally investigate or prosecute any alcohol or drug abuse patient.[facility] HospitalIn the event this information is protected by the Federal Confidentiality of Alcohol and Drug Abuse Patient Records regulations: The Federal rules restrict any use of the information to criminally investigate or prosecute any alcohol or drug abuse patient.[facility] HospitalIn the event this information is protected by the Federal Confidentiality of Alcohol and Drug Abuse Patient Records regulations: The Federal rules restrict any use of the information to criminally investigate or prosecute any alcohol or drug abuse patient.[facility] HospitalIn the event this information is protected by the Federal Confidentiality of Alcohol and Drug Abuse Patient Records regulations: The Federal rules restrict any use of the information to criminally investigate or prosecute any alcohol or drug abuse patient.[facility] HospitalIn the event this information is protected by the Federal Confidentiality of Alcohol and Drug Abuse Patient Records regulations: The Federal rules restrict any use of the information to criminally investigate or prosecute any alcohol or drug abuse patient.[facility] HospitalIn the event this information is protected by the Federal Confidentiality of Alcohol and Drug Abuse Patient Records regulations: The Federal rules restrict any use of the information to criminally investigate or prosecute any alcohol or drug abuse patient.[facility] HospitalIn the event this information is protected by the Federal Confidentiality of Alcohol and Drug Abuse Patient Records regulations: The Federal rules restrict any use of the information to criminally investigate or prosecute any alcohol or drug abuse patient.[facility] HospitalIn the event this information is protected by the Federal Confidentiality of Alcohol and Drug Abuse Patient Records regulations: The Federal rules restrict any use of the information to criminally investigate or prosecute any alcohol or drug abuse patient.[facility] HospitalIn the event this information is protected by the Federal Confidentiality of Alcohol and Drug Abuse Patient Records regulations: The Federal rules restrict any use of the information to criminally investigate or prosecute any alcohol or drug abuse patient.[facility] HospitalIn the event this information is protected by the Federal Confidentiality of Alcohol and Drug Abuse Patient Records regulations: The Federal rules restrict any use of the information to criminally investigate or prosecute any alcohol or drug abuse patient.[facility] HospitalIn the event this information is protected by the Federal Confidentiality of Alcohol and Drug Abuse Patient Records regulations: The Federal rules restrict any use of the information to criminally investigate or prosecute any alcohol or drug abuse patient.[facility] HospitalIn the event this information is protected by the Federal Confidentiality of Alcohol and Drug Abuse Patient Records regulations: The Federal rules restrict any use of the information to criminally investigate or prosecute any alcohol or drug abuse patient.[facility] HospitalIn the event this information is protected by the Federal Confidentiality of Alcohol and Drug Abuse Patient Records regulations: The Federal rules restrict any use of the information to criminally investigate or prosecute any alcohol or drug abuse patient.[facility] HospitalIn the event this information is protected by the Federal Confidentiality of Alcohol and Drug Abuse Patient Records regulations: The Federal rules restrict any use of the information to criminally investigate or prosecute any alcohol or drug abuse patient.[facility] HospitalIn the event this information is protected by the Federal Confidentiality of Alcohol and Drug Abuse Patient Records regulations: The Federal rules restrict any use of the information to criminally investigate or prosecute any alcohol or drug abuse patient.[facility] HospitalIn the event this information is protected by the Federal Confidentiality of Alcohol and Drug Abuse Patient Records regulations: The Federal rules restrict any use of the information to criminally investigate or prosecute any alcohol or drug abuse patient.[facility] HospitalIn the event this information is protected by the Federal Confidentiality of Alcohol and Drug Abuse Patient Records regulations: The Federal rules restrict any use of the information to criminally investigate or prosecute any alcohol or drug abuse patient.[facility] HospitalIn the event this information is protected by the Federal Confidentiality of Alcohol and Drug Abuse Patient Records regulations: The Federal rules restrict any use of the information to criminally investigate or prosecute any alcohol or drug abuse patient.[facility] HospitalIn the event this information is protected by the Federal Confidentiality of Alcohol and Drug Abuse Patient Records regulations: The Federal rules restrict any use of the information to criminally investigate or prosecute any alcohol or drug abuse patient.[facility] HospitalIn the event this information is protected by the Federal Confidentiality of Alcohol and Drug Abuse Patient Records regulations: The Federal rules restrict any use of the information to criminally investigate or prosecute any alcohol or drug abuse patient.[facility] HospitalIn the event this information is protected by the Federal Confidentiality of Alcohol and Drug Abuse Patient Records regulations: The Federal rules restrict any use of the information to criminally investigate or prosecute any alcohol or drug abuse patient.[facility] HospitalIn the event this information is protected by the Federal Confidentiality of Alcohol and Drug Abuse Patient Records regulations: The Federal rules restrict any use of the information to criminally investigate or prosecute any alcohol or drug abuse patient.[facility] HospitalIn the event this information is protected by the Federal Confidentiality of Alcohol and Drug Abuse Patient Records regulations: The Federal rules restrict any use of the information to criminally investigate or prosecute any alcohol or drug abuse patient.[facility] HospitalIn the event this information is protected by the Federal Confidentiality of Alcohol and Drug Abuse Patient Records regulations: The Federal rules restrict any use of the information to criminally investigate or prosecute any alcohol or drug abuse patient.[facility] HospitalIn the event this information is protected by the Federal Confidentiality of Alcohol and Drug Abuse Patient Records regulations: The Federal rules restrict any use of the information to criminally investigate or prosecute any alcohol or drug abuse patient.[facility] HospitalIn the event this information is protected by the Federal Confidentiality of Alcohol and Drug Abuse Patient Records regulations: The Federal rules restrict any use of the information to criminally investigate or prosecute any alcohol or drug abuse patient.[facility] HospitalIn the event this information is protected by the Federal Confidentiality of Alcohol and Drug Abuse Patient Records regulations: The Federal rules restrict any use of the information to criminally investigate or prosecute any alcohol or drug abuse patient.[facility] HospitalIn the event this information is protected by the Federal Confidentiality of Alcohol and Drug Abuse Patient Records regulations: The Federal rules restrict any use of the information to criminally investigate or prosecute any alcohol or drug abuse patient.[facility] HospitalIn the event this information is protected by the Federal Confidentiality of Alcohol and Drug Abuse Patient Records regulations: The Federal rules restrict any use of the information to criminally investigate or prosecute any alcohol or drug abuse patient.[facility] HospitalIn the event this information is protected by the Federal Confidentiality of Alcohol and Drug Abuse Patient Records regulations: The Federal rules restrict any use of the information to criminally investigate or prosecute any alcohol or drug abuse patient.[facility] HospitalIn the event this information is protected by the Federal Confidentiality of Alcohol and Drug Abuse Patient Records regulations: The Federal rules restrict any use of the information to criminally investigate or prosecute any alcohol or drug abuse patient.[facility] HospitalIn the event this information is protected by the Federal Confidentiality of Alcohol and Drug Abuse Patient Records regulations: The Federal rules restrict any use of the information to criminally investigate or prosecute any alcohol or drug abuse patient.[facility] HospitalIn the event this information is protected by the Federal Confidentiality of Alcohol and Drug Abuse Patient Records regulations: The Federal rules restrict any use of the information to criminally investigate or prosecute any alcohol or drug abuse patient.[facility] HospitalIn the event this information is protected by the Federal Confidentiality of Alcohol and Drug Abuse Patient Records regulations: The Federal rules restrict any use of the information to criminally investigate or prosecute any alcohol or drug abuse patient.[facility] HospitalIn the event this information is protected by the Federal Confidentiality of Alcohol and Drug Abuse Patient Records regulations: The Federal rules restrict any use of the information to criminally investigate or prosecute any alcohol or drug abuse patient.[facility] Reason for Visit (unrecogniz ed section and content) Reason Comments Diabetes Reason Comments B-12 Injection Reason Onset Date Comments Refill Request 09/22/2021 Reason Comments Results Reason Comments Appointment Reason Comments Results Reason Comments Fatigue Reason Onset Date Comments Refill Request 10/21/2021 Reason Comments CARD New Patient Consult no issues Specialty Diagnoses / Procedures Referred By Contac t Referred To Contact Cardiology Diagnoses Shortness of breath on exertion Irregular heart beat Fatigue, unspecified type Procedures CONSULT TO CARDIOLOGY OFFICE/OUTPATIENT NEW HIGH MDM 60-74 MINUTES Comfort Patterson APRN.VENTILATION MECHANIC [address] [place] [address] Referral ID Status Reason Start Date Expiration Date Visits Requested Visits Authorized [id number] Pending Review PCP Requested Referral 10/28/2021 10/07/2022 [...] RSPSE SPMTRY PRE&POST-BRNCDILAT ADMN Guillaume Dominguez MD [address] [place] [address] [facility] [place] [facility] [place] [address] Referral ID Status Reason Start Date Expiration Date V isits Requested Visits Authorized [id number] Closed Auto-Generate d Referral 04/27/2022 05/27/2023 1 1 Specialty Diagnoses / Procedures Referred By Contac t Referred To Contact [facility] Diagnoses FIELD (dyspnea on exertion) Chronic cough Procedures LUNG VOLUMES Guillaume Dominguez MD [address] [place] [address] [facility] [place] [address] Referral ID Status Reason Start Date Expiration Date V isits Requested Visits Authorized [id number] Closed Auto-Generate d Referral 04/28/2022 05/30/2022 1 [...] EVALUATION HIGH COMPLEX 45 MINS Oralia Garcia, LEAD MINER.REMOTE SENSING RESEARCH SCIENTIST [address] [place] [address] [facility] [address] [address] Referral ID Status Reason Start Date Expiration Date V isits Requested Visits Authorized [id number] Closed Auto-Generate d Referral 05/31/2022 05/30/2023 1 [...] Juanita Wharton, PT, DPT [address] [place] [address] [facility] [address] [address] Referral ID Status Reason Start Date Expiration Date Visits Requested Visits Authorized [id number] Authorized PCP Requested Referral Auto-Generate d Referral [...] MIN. Juanita Wharton, PT, DPT [address] [address] [facility] [place] [address] [place] [address] Reason Onset Date Comments Refill Request 09/23/2022 Reason Onset Date Comments Refill Request 09/25/2022 Reason Comments Anticoagulation Referral ID Status Reason Start Date Expiration Date V isits Requested Visits Authorized [id number] Closed PCP Requested Referral Auto-Generated Referral 08/19/2022 [...] EST RS PT ORTH Veda Rocha [address]; [facility] [address] [place] [address] Nhi Iverson PT Referral ID Status Reason Start Date Expiration Date V isits Requested Visits Authorized [id number] Authorized 10/12/2022 01/28/2023 10 10 Reason Comments Editor Magazine - Other Reason Comments Follow Up Non-insulin [...] atrial complexes Procedures CONSULT TO CARDIOLOGY OFFICE/OUTPATIENT [facility] 60-74 MINUTES Guillaume Dominguez MD [address] [place] [address] Maykel Whitfield, DO [address] [address] Referral ID Status Reason Start Date Expiration Date Visits Requested Visits Authorized [id number] Pending Review PCP Requested Referral 08/15/2022 08/15/2023 1 1 Reason Comments Forms Reason Comments Reminder Call Reason Onset Date Comments Recheck Immunizations 02/02/2023 Flu vaccination Reason Onset Date Comments Refill Request 02/19/2023 Reason Comments Refill Request Reason Comments Non-insulin Dependent Diabetes Mellitus Reason Onset Date Comments Established Patient Memory issue s. Breast Problem 05/14/2023 Mammogram at [facility] Reason Comments Follow Up Room 12We don't kno w why we are here.ECHO, ECG, Stress results Reason Comments Abnormal mammogram letter Reason Comments Mammogram Result Call Back Reason Comments Brain Wellness Specialty Diagnoses / Procedures Referred By Contac t Referred To Contact Diagnoses Memory difficulties Procedures CONSULT TO [facility] OFFICE/OUTPATIENT [facility] 60 MINUTES Comfort Patterson APRN.NANNETTE [address] [place] [address] Referral ID Status Reason Start Date Expiration Date V isits Requested Visits Authorized [id number] Closed PCP Requested Referral 06/15/2023 06/14/2024 1 1 Reason Comments Follow Up Reason Comments F/U 3 Month Reason Comments Insurance Authorization Reason Comments PA required Reason Onset Date Comments Refill Request 09/17/2023 Reason Comments Physical evaluation for [facility] Reason Onset Date Comments Refill Request 10/28/2023 Reason Comments Insulin Dependent Diabetes Mellitus Diab etes follow up Reason Comments Patient Update Medication Problem Reason Comments F/U 6 months Reason Onset Date Comments Refill Request 12/21/2023 Reason Comments Pain bilateral knee for a bout 2 weeksdenies any recent injury Reason Comments UTI Reason Comments requesting allergy list to be faxed to [facility] Reason Comments Cardiac Clearance Anticoagulation Reason Comments Follow Up Back Pain Reason Comments Faxed to [facility] Reason Comments F/U 6 months Reason Comments [facility] requesting record s Reason Comments Established Patient Reason Comments Medication Dosage Adjustment Reason Onset Date Comments Population Health Navigation Outreach 08/17/2024 [facility] Reason Onset Date Comments Population Health Navigation Outreach 09/18/2024 [facility] Care Teams (unrecognized sec tion and content) Blow Up Operator Relationship Specialty Start Date End Date Guillaume Dominguez MD [facility] [place] [address] PCP - General 07/30/04 Blow Up Operator Relationship Specialty Start Date End Date Guillaume Dominguez MD [address] [place] [address] [place] [address] PCP - General 07/30/04 Blow Up Operator Relationship Specialty Start Date End Date Guillaume Dominguez MD [address] [place] [address] [place] [address] PCP - General 07/30/04 Blow Up Operator Relationship Specialty Start Date End Date Guillaume Dominguez MD [address] [place] [address] [place] [address] PCP - General 07/30/04 Blow Up Operator Relationship Specialty Start Date End Date Guillaume Dominguez MD [address] [place] [address] [place] [address] PCP - General 07/30/04 Blow Up Operator Relationship Specialty Start Date End Date Guillaume Dominguez MD [address] [place] [address], [place] [address] PCP - General 07/30/04 Blow Up Operator Relationship Specialty Start Date End Date Guillaume Dominguez MD [address] [place] [address], [place] [address] PCP - General 07/30/04 Blow Up Operator Relationship Specialty Start Date End Date Guillaume Dominguez MD [address] [place] [address] PCP - General 07/30/04 Blow Up Operator Relationship Specialty Start Date End Date Guillaume Dominguez MD [address] [place] [address] PCP - General 07/30/04 Blow Up Operator Relationship Specialty Start Date End Date Guillaume Dominguez MD [facility] [place] [address] PCP - General 07/30/04 Blow Up Operator Relationship Specialty Start Date End Date Guillaume Dominguez MD [address] [place] [address], [place] [address] PCP - General 07/30/04 Blow Up Operator Relationship Specialty Start Date End Date Guillaume Dominguez MD [address] [place] [address], [place] [address] PCP - General 07/30/04 Blow Up Operator Relationship Specialty Start Date End Date Guillaume Dominguez MD [facility] [place] [address] PCP - General 07/30/04 Blow Up Operator Relationship Specialty Start Date End Date Guillaume Dominguez MD [address] [place] [address], [place] [address] PCP - General 07/30/04 Blow Up Operator Relationship Specialty Start Date End Date Guillaume Dominguez MD [address] [place] [address], [place] [address] PCP - General 07/30/04 Blow Up Operator Relationship Specialty Start Date End Date Guillaume Dominguez MD [address] [place] [address], [place] [address] PCP - General 07/30/04 Blow Up Operator Relationship Specialty Start Date End Date Guillaume Dominguez MD [address] [place] [address] PCP - General 07/30/04 Blow Up Operator Relationship Specialty Start Date End Date Guillaume Dominguez MD [address] [place] [address] PCP - General 07/30/04 Blow Up Operator Relationship Specialty Start Date End Date Guillaume Dominguez MD [address] [place] [address], [place] [address] PCP - General 07/30/04 Blow Up Operator Relationship Specialty Start Date End Date Guillaume Dominguez MD [address] [place] [address], [place] [address] PCP - General 07/30/04 Blow Up Operator Relationship Specialty Start Date End Date Guillaume Dominguez MD [address] [place] [address], [place] [address] PCP - General 07/30/04 Blow Up Operator Relationship Specialty Start Date End Date Guillaume Dominguez MD [address] [place] [address], [place] [address] PCP - General 07/30/04 Blow Up Operator Relationship Specialty Start Date End Date Guillaume Dominguez MD [address] [place] [address], [place] [address] PCP - General 07/30/04 Blow Up Operator Relationship Specialty Start Date End Date Guillaume Dominguez MD [address] [place] [address], [place] [address] PCP - General 07/30/04 Blow Up Operator Relationship Specialty Start Date End Date Guillaume Dominguez MD [address] [place] [address], [place] [address] PCP - General 07/30/04 Blow Up Operator Relationship Specialty Start Date End Date Guillaume Dominguez MD [address] [place] [address] PCP - General 07/30/04 Blow Up Operator Relationship Specialty Start Date End Date Guillaume Dominguez MD [address] [place] [address] PCP - General 07/30/04 Blow Up Operator Relationship Specialty Start Date End Date Guillaume Dominguez MD [address] [place] [address], [place] [address] PCP - General 07/30/04 Blow Up Operator Relationship Specialty Start Date End Date Guillaume Dominguez MD [address] [place] [address], [place] [address] PCP - General 07/30/04 Blow Up Operator Relationship Specialty Start Date End Date Guillaume Dominguez MD [address] [place] [address], [place] [address] PCP - General 07/30/04 Blow Up Operator Relationship Specialty Start Date End Date Guillaume Dominguez MD [facility] [place] [address] PCP - General 07/30/04 Blow Up Operator Relationship Specialty Start Date End Date Guillaume Dominguez MD [address] [place] [address], [place] [address] PCP - General 07/30/04 Blow Up Operator Relationship Specialty Start Date End Date Guillaume Dominguez MD [facility] [place] [address] PCP - General 07/30/04 Blow Up Operator Relationship Specialty Start Date End Date Guillaume Dominguez MD [address] [place] [address], [place] [address] PCP - General 07/30/04 Blow Up Operator Relationship Specialty Start Date End Date Guillaume Dominguez MD [address] [place] [address] PCP - General 07/30/04 Blow Up Operator Relationship Specialty Start Date End Date Guillaume Dominguez MD [address] [place] [address] PCP - General 07/30/04 Blow Up Operator Relationship Specialty Start Date End Date Guillaume Dominguez MD [address] [place] [address] PCP - General 07/30/04 Blow Up Operator Relationship Specialty Start Date End Date Guillaume Dominguez MD [address] [place] [address] PCP - General 07/30/04 Blow Up Operator Relationship Specialty Start Date End Date Guillaume Dominguez MD [address] [place] [address] PCP - General 07/30/04 Blow Up Operator Relationship Specialty Start Date End Date Guillaume Dominguez MD [address] [place] [address] PCP - General 07/30/04 Blow Up Operator Relationship Specialty Start Date End Date Guillaume Dominguez MD [address] [place] [address] PCP - General 07/30/04 Blow Up Operator Relationship Specialty Start Date End Date Guillaume Dominguez MD [address] [place] [address] PCP - General 07/30/04 Blow Up Operator Relationship Specialty Start Date End Date Guillaume Dominguez MD [address] [place] [address] PCP - General 07/30/04 Blow Up Operator Relationship Specialty Start Date End Date Guillaume Dominguez MD [address] [place] [address] PCP - General 07/30/04 Team Status: Active Member Role Status Dates Dr. Guillaume Dominguez MD Family Provider Active Dr. Guillaume Dominguez MD Primary Care Provider Active Team Status: Inactive Member Role Status Dates Dr. Guillaume Dominguez MD Primary Care Provider Active Dr. Natalya Medina MD Emergency Provider Active Blow Up Operator Relationship Specialty Start Date End Date Guillaume Dominguez MD [address] [place] [address] PCP - General 07/30/04 Blow Up Operator Relationship Specialty Start Date End Date Guillaume Dominguez MD [address] [place] [address] PCP - General 07/30/04 Blow Up Operator Relationship Specialty Start Date End Date Guillaume Dominguez MD [address] [place] [address] PCP - General 07/30/04 Team Status: Inactive Member Role Status Dates Dr. Guillaume Dominguez MD Primary Care Provider Active Dr. Natalya Medina MD Attending Provider, Emergency Provider Active Team Status: Inactive Member Role Status Dates Dr. Guillaume Dominguez MD Primary Care Provider Active Dr. Kerwin Kumar DO Emergency Provider Active Blow Up Operator Relationship Specialty Start Date End Date Guillaume Dominguez MD [address] [place] [address] PCP - General 07/30/04 Blow Up Operator Relationship Specialty Start Date End Date Guillaume Dominguez MD [address] [place] [address] PCP - General 07/30/04 Blow Up Operator Relationship Specialty Start Date End Date Guillaume Dominguez MD [address] [place] [address] PCP - General 07/30/04 Blow Up Operator Relationship Specialty Start Date End Date Guillaume Dominguez MD [address] [place] [address] PCP - General 07/30/04 Blow Up Operator Relationship Specialty Start Date End Date Guillaume Dominguez MD [address] [place] [address] PCP - General 07/30/04 Blow Up Operator Relationship Specialty Start Date End Date Guillaume Dominguez MD [address] [place] [address] PCP - General 07/30/04 Blow Up Operator Relationship Specialty Start Date End Date Guillaume Dominguez MD [address] [place] [address] PCP - General 07/30/04 Blow Up Operator Relationship Specialty Start Date End Date Guillaume Dominguez MD [address] [place] [address] PCP - General 07/30/04 Blow Up Operator Relationship Specialty Start Date End Date Guillaume Dominguez MD [address] [place] [address] PCP - General 07/30/04 Blow Up Operator Relationship Specialty Start Date End Date Guillaume Dominguez MD [address] [place] [address] PCP - General 07/30/04 Blow Up Operator Relationship Specialty Start Date End Date Guillaume Dominguez MD [address] [place] [address] PCP - General 07/30/04 Blow Up Operator Relationship Specialty Start Date End Date Guillaume Dominguez MD [address] [place] [address] PCP - General 07/30/04 Blow Up Operator Relationship Specialty Start Date End Date Guillaume Dominguez MD [address] [place] [address] PCP - General 07/30/04 Blow Up Operator Relationship Specialty Start Date End Date Guillaume Dominguez MD [address] [place] [address] PCP - General 07/30/04 Blow Up Operator Relationship Specialty Start Date End Date Guillaume Dominguez MD [address] [place] [address] PCP - General 07/30/04 Blow Up Operator Relationship Specialty Start Date End Date Guillaume Dominguez MD [address] [place] [address] PCP - General 07/30/04 Blow Up Operator Relationship Specialty Start Date End Date Guillaume Dominguez MD [address] [place] [address] PCP - General 07/30/04 Blow Up Operator Relationship Specialty Start Date End Date Guillaume Dominguez MD [address] [place] [address] PCP - General 07/30/04 Blow Up Operator Relationship Specialty Start Date End Date Guillaume Dominguez MD [address] [place] [address] PCP - General 07/30/04 Blow Up Operator Relationship Specialty Start Date End Date Guillaume Dominguez MD [address] [place] [address] PCP - General 07/30/04 Blow Up Operator Relationship Specialty Start Date End Date Guillaume Dominguez MD [address] [place] [address] PCP - General 07/30/04 Blow Up Operator Relationship Specialty Start Date End Date Guillaume Dominguez MD [address] [place] [address] PCP - General 07/30/04 Blow Up Operator Relationship Specialty Start Date End Date Guillaume Dominguez MD [address] [place] [address] PCP - General 07/30/04 Blow Up Operator Relationship Specialty Start Date End Date Guillaume Dominguez MD [address] [place] [address] PCP - General 07/30/04 Blow Up Operator Relationship Specialty Start Date End Date Guillaume Dominguez MD [address] [place] [address] PCP - General 07/30/04 Blow Up Operator Relationship Specialty Start Date End Date Guillaume Dominguez MD [address] [place] [address] PCP - General 07/30/04 Comfort Patterson, LEAD MINER.VENTILATION MECHANIC [address] [place] [address] [facility] 05/08/24 Josefa Caputo LEAD MINER.REMOTE SENSING RESEARCH SCIENTIST [address] [place] [address] [facility] 05/08/24 Blow Up Operator Relationship Specialty Start Date End Date Guillaume Dominguez MD [address] [place] [address] PCP - General 07/30/04 Comfort Patterson, LEAD MINER.VENTILATION MECHANIC [address] [place] [address] [facility] We[facility] Internal Medicine 05/08/24 Josefa Caputo LEAD MINER.REMOTE SENSING RESEARCH SCIENTIST [address] [place] [address] [facility] Internal [facility] 05/08/24 Blow Up Operator Relationship Specialty Start Date End Date Guillaume Dominguez MD [address] [place] [address] PCP - General 07/30/04 Comfort Patterson, LEAD MINER.VENTILATION MECHANIC [address] [place] [address] [facility] 05/08/24 Josefa Caputo APRN.REMOTE SENSING RESEARCH SCIENTIST [address] [place] [address] [facility] 05/08/24 Blow Up Operator Relationship Specialty Start Date End Date Guillaume Dominguez MD [address] [place] [address] PCP - General 07/30/04 Blow Up Operator Relationship Specialty Start Date End Date Guillaume Dominguez MD [address] [place] [address] PCP - General 07/30/04 Comfort Patterson APRN.VENTILATION MECHANIC [address] [place] [address] [facility] Internal [facility] 05/08/24 Josefa Caputo APRN.REMOTE SENSING RESEARCH SCIENTIST [address] [place] [address] [facility] 05/08/24 Blow Up Operator Relationship Specialty Start Date End Date Guillaume Dominguez MD [address] [place] [address] PCP - General 07/30/04 Comfort Patterson APRN.VENTILATION MECHANIC [address] [place] [address] [facility] 05/08/24 Josefa Caputo APRN.REMOTE SENSING RESEARCH SCIENTIST [address] [place] [address] [facility] 05/08/24 Blow Up Operator Relationship Specialty Start Date End Date Guillaume Dominguez MD [address] [facility] [place] [address] PCP - General 07/30/04 Comfort Patterson, LEAD MINER.VENTILATION MECHANIC [address] [place] [address] Feed We[facility] Internal Medicine 05/08/24 Josefa Caputo LEAD MINER.REMOTE SENSING RESEARCH SCIENTIST [address] [place] [address] [facility] Internal Medicine 05/08/24 Blow Up Operator Relationship Specialty Start Date End Date Guillaume Dominguez [address] [place] [address] PCP - General Internal Medicine 08/02/24 Blow Up Operator Relationship Specialty Start Date End Date Guillaume Dominguez MD [address] [place] [address] PCP - General 07/30/04 Comfort Patterson, LEAD MINER.VENTILATION MECHANIC [address] [place] [address] [facility] Internal Medicine 05/08/24 Josefa Caputo LEAD MINER.REMOTE SENSING RESEARCH SCIENTIST [address] [place] [address] [facility] Internal Medicine 05/08/24 Blow Up Operator Relationship Specialty Start Date End Date Guillaume Dominguez MD [address] [place] [address] PCP - General 07/30/04 Comfort Patterson, LEAD MINER.VENTILATION MECHANIC [address] [place] [address] [facility] Internal Medicine 05/08/24 Josefa Caputo LEAD MINER.REMOTE SENSING RESEARCH SCIENTIST [address] [place] [address] [facility] Internal Medicine 05/08/24 Blow Up Operator Relationship Specialty Start Date End Date Guillaume Dominguez MD [address] [place] [address] PCP - General 07/30/04 Comfort Patterson, LEAD MINER.VENTILATION MECHANIC [address] [place] [address] [facility] Internal Medicine 05/08/24 Josefa Caputo LEAD MINER.REMOTE SENSING RESEARCH SCIENTIST [address] [place], [place] [address] [facility] Internal Medicine 05/08/24 Team Status: Inactive Member Role Status Dates Dr. Guillaume Dominguez MD Primary Care Provider Active Start: May 05, 2024 End: May 06, 2024 Arden Leger MD Attending Provider Active Star t: May 05, 2024 End: May 06, 2024 Arden Leger MD Emergency Provider Active Star t: May 05, 2024 End: May 06, 2024 Team Status: Active Member Role Status Dates Dr. Guillaume Dominguez MD Primary Care Provider Active Start: May 22, 2024 Deep BABCOCK MD Attending Provider Active S tart: May 22, 2024 Team Status: Active Member Role Status Dates Dr. Guillaume Dominguez MD Primary Care Provider Active Start: May 23, 2024 Deep BABCOCK MD Attending Provider Active S tart: May 23, 2024 Team Status: Active Member Role Status Dates Dr. Guillaume Dominguez MD Primary Care Provider Active Start: May 29, 2024 Deep BABCOCK MD Attending Provider Active S tart: May 29, 2024 Team Status: Active Member Role Status Dates Dr. Guillaume Dominguez MD Primary Care Provider Active Start: June 05, 2024 Deep BABCOCK MD Attending Provider Active S tart: June 05, 2024 Team Status: Active Member Role Status Dates Dr. Guillaume Dominguez MD Primary Care Provider Active Start: June 09, 2024 Deep BABCOCK MD Attending Provider Active S tart: June 09, 2024 Team Status: Inactive Member Role Status Dates Dr. Guillaume Dominguez MD Primary Care Provider Active Start: June 20, 2024 End: June 20, 2024 Deep BABCOCK MD Attending Provider Active S tart: June 20, 2024 End: June 20, 2024 Team Status: Active Member Role Status Dates Dr. Guillaume Dominguez MD Primary Care Provider Active Start: July 10, 2024 Deep BABCOCK MD Attending Provider Active S tart: July 10, 2024 Deep BABCOCK MD Referring Provider Active S tart: July 10, 2024 Team Status: Active Member Role Status Dates Dr. Guillaume Dominguez MD Primary Care Provider Active Start: July 25, 2024 Deep BABCOCK MD Attending Provider Active S tart: July 25, 2024 Deep BABCOCK MD Referring Provider Active S tart: July 25, 2024 Team Status: Inactive Member Role Status Dates Dr. Guillaume Dominguez MD Primary Care Provider Active Start: August 08, 2024 End: August 08, 2024 Deep BABCOCK MD Attending Provider Active S tart: August 08, 2024 End: August 08, 2024 Team Status: Active Member Role Status Dates Dr. Guillaume Dominguez MD Primary Care Provider Active Start: August 11, 2024 Deep BABCOCK MD Attending Provider Active S tart: August 11, 2024 Team Status: Inactive Member Role Status Dates Dr. Guillaume Dominguez MD Primary Care Provider Active Start: August 11, 2024 End: August 11, 2024 Deep BABCOCK MD Attending Provider Active S tart: August 11, 2024 End: August 11, 2024 Blow Up Operator Relationship Specialty Start Date End Date Guillaume Dominguez MD [address] [place] [address] PCP - General 07/30/04 Comfort Patterson APRN.VENTILATION MECHANIC [address] [place], [place] [address] Feed We[facility] Internal Medicine 05/08/24 Josefa Caputo APRN.REMOTE SENSING RESEARCH SCIENTIST [address] [place], [place] [address] [facility] 08/22/24 Team Status: Active Member Role Status Dates Dr. Guillaume Dominguez MD Primary Care Provider Active Start: September 11, 2024 Deep BABCOCK MD Attending Provider Active S tart: September 11, 2024 Team Status: Inactive Member Role Status Dates Dr. Guillaume Dominguez MD Primary Care Provider Active Start: September 21, 2024 End: September 21, 2024 Deep BABCOCK MD Attending Provider Active S tart: September 21, 2024 End: September 21, 2024 Team Status: Active Member Role Status Dates Dr. Guillaume Dominguez MD Primary Care Provider Active Start: September 26, 2024 Deep BABCOCK MD Attending Provider Active S tart: September 26, 2024 Goals (unrecognized section and content) Goals may be documented in a n alternate sectionGoals may be documented in an alternate sectionGoals may be documented in an alternate sectionGoals may be documented in an alternate sectionGoals may be documented in an alternate sectionGoals may be documented in an alternate sectionGoals may be documented in an alternate sectionGoals may be documented in an alternate sectionGoals may be documented in an alternate section Active Administered Medications - up to 3 most recent administrations Administered Medications (un recognized section and content) Medication Order MAR Action Action Date Dose Rate Site cyanocobalamin 1,000 mcg injection 1,000 mcg, INTRAMUSCULAR, EVERY 1 MONTH, 12 doses, First dose on [place] 02/04/23 at 0000, Last dose on Wed12/31/23 at 0000 Given 08/02/2023 3:02 PM EST 1,000 mcg Deltoid, Left Given 07/05/2023 1:36 PM EST 1,000 mcg De ltoid, Left Given 06/04/2023 1:19 PM EST 1,000 mcg De ltoid, Left Active Administered Medications - up to 3 most recent administrations Medication Order MAR Action Action Date Dose Rate Site cyanocobalamin 1,000 mcg injection 1,000 mcg, INTRAMUSCULAR, EVERY 1 MONTH, 12 doses, First dose on [place] 02/04/23 at 0000, Last dose on Wed12/31/23 at 0000 Given 09/06/2023 1:26 PM EDT 1,000 mcg Deltoid, Left Given 08/02/2023 3:02 PM EST 1,000 mcg De ltoid, Left Given 07/05/2023 1:36 PM EST 1,000 mcg De ltoid, Left FOR RECORDS PERTAINING TO PATIENTS WHO ARE [...] BE BASED ON THE PRIMARY CLINICAL RECORDS. [facility]. provides no warranty or guarantee of the accuracy or completeness of information in this document.
[2024-10-31 08:07] LABS: Absolute Lymphocyte Count 1.07 X10^3/uL (0.83-4.51); Absolute Neutrophil Count 12.1 X10^3/uL (2.0-7.7); Basophil# 0.06 X10^3/uL; Basophil% 0.4 % (0-1); Eosinophil# 0.02 X10^3/uL; Eosinophils% 0.1 % (0-5); Hemoglobin 11.1 g/dL (12.0-15.0); Lymphocyte # 1.07 X10^3/ul (0.83-4.51); Lymphocyte % 7.5 % (19-41); Mean Corp Hgb Conc 32.6 g/dL (32-36); Mean Corpuscular Volume 91.9 fL (81-99); Monocyte# 0.81 X10^3/uL; Monocyte% 5.6 % (0-10); NRBC Flagged by Analyzer 0 % (0-5); Neutrophil # 12.05 X10^3/uL (2.7-7.7); Platelet Count 555 K/mm3 (150-450); RBC Distribution Width SD 50.1 fl (35.1-43.9); White Blood Count 14.4 K/mm3 (4.4-11.0)
[2024-10-31 08:39] LABS: Anion Gap 12 (5-15); BUN 34 mg/dL (4-19); BUN/Creat Ratio 60.5 RATIO (10-20); Calcium,Total 9.9 mg/dL (7.6-11.0); Carbon Dioxide 21.8 mmol/L (21.0-32.0); Chloride 102 mmol/L (98-108); Creatinine, Serum 0.56 mg/dL (0.70-1.20); EST Glomerular Filtration Rate 91 (>60); Glucose 161 mg/dL (70-99); Potassium 3.8 mmol/L (3.3-5.1); Sodium Level 135 mmol/L (133-145)
== END ==
LOC: OLS.ACH 05:00
PROVIDERS: PCP Internal Medicine; Visit Provider Internal Medicine
DX: E11.65 Type 2 diabetes mellitus with hyperglycemia (principal)
CPT/HCPCS: 36415; 80048; 85025

== ENCOUNTER → 2024-11-03 05:00 | Outpatient (REF) | payer MEDICARE, SELFPAY ==
[2024-11-03 08:54] LABS: Hemoglobin A1c 6.7 % (<=5.6)
== END ==
LOC: OLS.ACH 05:00
PROVIDERS: PCP Internal Medicine; Visit Provider Internal Medicine
DX: E11.65 Type 2 diabetes mellitus with hyperglycemia (principal); E43 Unspecified severe protein-calorie malnutrition; S06.309D Unspecified focal traumatic brain injury with loss of consciousness of unspecified duration, subsequent encounter
CPT/HCPCS: 36415; 83036

== ENCOUNTER → 2024-12-19 05:00 | Outpatient (REF) | payer MEDICARE, SELFPAY | LOC: OLS.ACH 05:00 | PROVIDERS: PCP Internal Medicine; Visit Provider Internal Medicine | DX: E11.65 Type 2 diabetes mellitus with hyperglycemia (principal) | CPT/HCPCS: 36415; 83036 ==

== ENCOUNTER → 2025-01-26 | Outpatient (REF) | payer MEDICARE, SELFPAY ==
--- OUTSIDE RECORDS SUMMARY | 2025-01-26 04:45 | XMS RPT_ITS | CCD ---
Author Organization [facility] CliniSynd Care Team Providers Care Bingo Checker Name Role Phone ALLISON LEHMAN Unavailable Unavailable TALAMPAS, GUILLAUME Unavailable Unavailable TALAMPAS, GUILLAUME Unavailable Unavailable MORAIMA MONTELONGO Referring Unavailable Guillaume Dominguez MD Primary Care Provider Guillaume Dominguez MD Primary Care Provider Guillaume Dominguez MD Primary Care Provider Guillaume Dominguez MD Primary Care Provider MORAIMA MONTELONGO Attending Unavailable MORAIMA MONTELONGO Admitting Unavailable TALAMPJULIANNE, GUILLAUME Melody Primary Care Unavailable Patterson CORD MAKER.PLANT CONTROL AIDE, Comfort Unavailable Flynn CORD MAKER.CONSULTING SERVICES ASSOCIATE, Josefa Unavailable Flynn CORD MAKER.CONSULTING SERVICES ASSOCIATE, Josefa Unavailable Analia Guillaume Melody Primary Care Provider RUBY, MAYELAYINNA Attending Unavailable WILLIAMACHUKDejuan, ENYINNA Referring Unavailable TALAMPAS, GUILLAUME, Primary Care Unavailable TALAMPAS, GUILLAUME D Primary Care Unavailable NWACHUKU, ENYINNA Attending Unavailable NIVIA VERMA Referring Unavailable TALAMPJULIANNE, GUILLAUME D Primary Care Unavailable Dr. Guillaume Dominguez MD Primary Care Provider Arden Leger MD Attending Provider [phone] Arden Leger MD Emergency Provider Jose De Jesus SCHMIDT, Deep Attending Provider Unavailable Jose De Jesus SCHMIDT, Deep Referring Provider Unavailable Flynn CORD MAKER.CONSULTING SERVICES ASSOCIATE Josefa Unavailable Dr. Guillaume Dominguez MD Primary Care Provider Jose De Jesus SCHMIDT, Deep Attending Provider Unavailable Dr. Guillaume Dominguez MD Primary Care Provider [phone] Jose De Jesus SCHMIDT, Deep Attending Provider Unavailable Patterson GM.PLANT CONTROL AIDE, Comfort Unavailable ADINA LAY Attending Unavailable TALAMPAS, GUILLAUME D Primary Care Unavailable TALAMPAS, GUILLAUME D Referring Unavailable TALAMPAS, GUILLAUME D Primary Care Unavailable JOSEFA CAPUTO Referring Unavailable TALAMPAS, GUILLAUME D Primary Care Unavailable PATTERSON, COMFORT Attending Unavailable TALAMPAS, GUILLAUME D Primary Care Unavailable ORALIA GARCIA Attending Unavailable TALAMPAS, GUILLAUME D Primary Care Unavailable TALAMPAS, GUILLAUME D Attending Unavailable TALAMPAS, GUILLAUME D Primary Care Unavailable Deperro OLS, Deep [...] Unavailable Talampas, Guillaume D Primary Care Unavailable Jereddla Brooklyn BABCOCK Attending Unavailable Talampas, Guillaume D Primary Care [...] Unavailable Talampas, Guillaume D Primary Care Unavailable Neely Wade Consulting Unavailable Talampas, Guillaume D Primary Care Unavailable Curtis Veronica Admitting Unavailable Kerwin Ibanez Attending Unavailable Curtis Veronica Consulting Unavailable Arron Cervantes Consulting Unavailable Kerwin Ibanez Consulting Unavailable NeelyWade Attending Unavailable Talampas, Guillaume D Referring Unavailable Talampas, Guillaume D Primary Care Unavailable Deep Borden Attending Unavailable Talampas, Guillaume D Primary Care Unavailable Wade Neely Consulting Unavailable Curtis Veronica Admitting Unavailable Talampas, Guillaume D Primary Care Unavailable Kerwin Ibanez Attending Unavailable Curtis Veronica Consulting Unavailable Arron Cervantes Consulting Unavailable Michael, Allan Chi Admitting Unavailable Michael, Allan Chi Attending Unavailable Talampas, Guillaume D Primary Care Unavailable Wade Neely Attending Unavailable Talampas, Guillaume D Referring Unavailable Talampas, Guillaume D Primary Care Unavailable Deep Borden Attending Unavailable Talampas, Guillaume D Primary Care Unavailable Arron Cervantes Attending Unavailable Wade Neely Attending Unavailable Michael, Allan Chi Admitting Unavailable Michael, Allan Chi Consulting Unavailable Talampas, Guillaume D Primary Care Unavailable Jose Gant Attending Unavailable Talampas, Guillaume D Primary Care Unavailable NeelyWade Attending Unavailable Talampas, Guillaume D Referring Unavailable Talampas, Guillaume D Primary Care Unavailable Wade Neely Attending Unavailable Curtis Veronica Attending Unavailable Kerwin Ibanez Referring Unavailable Deep Borden Attending Unavailable Talampas, Guillaume D Primary Care Unavailable Allergies Allergy Classification Reported Allergen(s) Allergy Type Date of Onset Reaction(s) Facility Angiotensin 2 Receptor Blockers (ARB) (2 sources) irbesartan Drug Allergy 5 Swelling [facility] Aspirin (2 sources) Aspirin Drug Allergy 2 Anaphylaxis [facility] Cephalosporins (antibiotic) (2 sources) Cephalexin Drug Allergy 2 Rash, Diarrhea [facility] Work Phone: Cholesterol Absorption Inhibitors (2 sources) ezetimibe Drug Allergy 5 [facility] egg extract (2 sources) egg extract Drug Allergy 7 Diarrhea [facility] exenatide (2 sources) exenatide Drug Allergy 7 [facility] HMG-CoA Reductase Inhibitors (statins) (8 sources) rosuvastatin Drug Allergy 5 [facility] Macrolides (antibiotic) (2 sources) Erythromycin Drug Allergy 8 Myalgia [facility] metFORMIN (2 sources) metFORMIN Drug Allergy 8 GI Upset [facility] Niacin (4 sources) Niacin Drug Allergy 5 Unknown [facility] NSAIDs (2 sources) Etodolac Drug Allergy 1 Contraindicati on-Medical Surgical [facility] Work Phone: Opioid Agonists (2 sources) HYDROcodone Drug Allergy 3 Itching [facility] Penicillins (antibiotic) (2 sources) Penicillins Drug Allergy 5 Rash [facility] Sulfonamides (antibiotic) (2 sources) Sulfonamides (Antibiotic) Drug Allergy 5 Rash [facility] (20 sources) atorvastatin; Translations: [ATORVASTATIN] Drug Allergy 5 Unknown [facility] Rep[facility] (20 sources) egg extract; Translations: [EGG] Drug Allergy 7 Diarrhea [facility] (20 sources) erythromycin; Translations: [ERYTHROMYCIN] Drug Allergy 8 Myalgia [facility] (20 sources) etodolac; Translations: [ETODOLAC] Drug Allergy 1 Contraindicati on-Medical Surgical [facility] (20 sources) exenatide; Translations: [EXENATIDE] Drug Allergy 7 Unknown [facility] (20 sources) ezetimibe; Translations: [EZETIMIBE] Drug Allergy 5 [facility] (20 sources) irbesartan; Translations: [IRBESARTAN] Drug Allergy 5 Swelling [facility] (20 sources) niacin; Translations: [NIACIN (ANTIHYPERLIPIDE VERN)] Drug Allergy 5 [facility] (20 sources) NSAIDs; Translations: [NSAIDS (NON-STEROIDAL ANTI-INFLAMMATOR Y DRUG)] Propensity to adverse reactions (disorder) 1 Other: See Comments, Intolerance [facility] (20 sources) Penicillins; Translations: [PENICILLINS] Propensity to adverse reactions (disorder) 5 Rash [facility] (20 sources) pravastatin; Translations: [PRAVASTATIN SODIUM] Drug Allergy 5 [facility] (20 sources) rosuvastatin; Translations: [ROSUVASTATIN CALCIUM] Drug Allergy 5 [facility] (20 sources) salicylic acid; Translations: [SALICYLATES] Drug Allergy 5 Anaphylaxis [facility] (20 sources) simvastatin; Translations: [SIMVASTATIN] Drug Allergy 5 Rash [facility] (20 sources) Sulfonamides (Antibiotic); Translations: [SULFA (SULFONAMIDE ANTIBIOTICS)] Propensity to adverse reactions (disorder) 5 Rash [facility] Rep[facility] (3 sources) OTHER; Translations: [OTHER] Propensity to adverse reactions (disorder) 9 [facility] (20 sources) metFORMIN; Translations: [METFORMIN] Drug Allergy 8 GI Upset [facility] Repository (20 sources) Niacin; Translations: [NIACIN] Drug Allergy 5 Unknown [facility] Rep[facility] (20 sources) duoderm [Other] Propensity to adverse reactions 9 Rash [facility] Work Phone: (20 sources) ointments [Other] Propensity to adverse reactions 9 [facility] (20 sources) tape [Other] Propensity to adverse reactions 8 [facility] (20 sources) Adhesive agent; Translations: [ADHESIVE] Allergy to substance 2 Itching [facility] (20 sources) Aspirin; Translations: [ASPIRIN] Drug Allergy 2 Anaphylaxis [facility] (3 sources) Egg Propensity to adverse reactions 2 Diarrhea [facility] Work Phone: (10 sources) Erythromycin Drug Allergy 2 Other [facility] (10 sources) Nonsteroidal Anti-inflammator y Compounds Propensity to adverse reactions 2 Other [facility] (10 sources) Pravastatin Drug Allergy 2 Rash [facility] (10 sources) rosuvastatin Drug Allergy 2 Unknown [facility] (10 sources) Rmmoimw-Owj-Yih Reductase Inhibitor Allergy to substance 2 Other [facility] (3 sources) duoderm Allergy to substance 2 Rash [facility] Work Phone: (3 sources) ointments Allergy to substance 2 Rash [facility] Work Phone: (20 sources) Cephalexin; Translations: [CEPHALEXIN] Drug Allergy 2 Rash, Diarrhea [facility] Work Phone: (20 sources) HYDROcodone; Translations: [HYDROCODONE] Drug Allergy 3 Itching [facility] Work Phone: (8 sources) Dressing: Non-Medicated; Translations: [Dressing: Non-Medicated] Allergy to substance 3 Rash [facility] Comment on above: duoderm (20 sources) Adhesive Tape-Silicones; Translations: [ADHESIVE TAPE-SILICONES] Drug Intolerance 4 Itching [facility] Work Phone: (20 sources) oxyCODONE; Translations: [OXYCODONE] Drug Allergy 4 Mental Status Change, Itching [facility] Comment on above: per family (1 source) Aspirin Drug Allergy 4 [facility] Repository (1 source) HYDROcodone Drug Allergy 4 [facility] Repository (1 source) oxyCODONE Drug Allergy 4 [facility] Repository (1 source) Pravastatin Drug Allergy 4 [facility] Repository (1 source) rosuvastatin Drug Allergy 4 [facility] Repository (1 source) NSAIDS (Non-Steroidal Anti-Inflamma Drug allergy (disorder) 4 [facility] Repository (1 source) Jxnteog-Fmj-Xjs Reductase Inhibitor Drug allergy (disorder) 4 [facility] Repository (1 source) erythromycin base Drug allergy (disorder) 4 [facility] Repository Medications Current Medications Medication Drug Class(es) [...] take 1 tablet by mouth once daily in the evening ascorbic acid(VITAMIN C 500 MG TAB) Take 500 mg by mouth every evening. 0 0 03/17/2019 Active Comment on above: Take 500 mg by mouth once daily. calcitriol 0.0005 mg oral capsule (20 sources) Vitamin D3 Analog Start: 5 End: 4 take 1 capsule by mouth once daily calcitriol (ROCALTROL) 0.5 mcg capsule Take 1 capsule by mouth once daily. 90 capsule 4 06/25/2023 Active Comment on above: Take 1 capsule by mo ut once daily. calcium carbonate 500 mg chewable tablet (20 sources) Start: 4 take 500 mg by mouth every four hours as needed calcium carbonate (TUMS) 500 mg chew Take 500 mg by mouth every 4 hours as needed. 02/01/2024 Active calcium carbonate 1500 mg / cholecalciferol 200 unt oral tablet (20 sources) Vitamin D Start: 9 Calcium Carbonate-Vitamin D3 1 EACH tablet Active [...] morning. Active cholecalciferol 0.05 mg oral capsule (4 sources) Vitamin D Start: 01-10-2024 take 1 [...] itching docusate sodium 50 mg / sennosides, fpc 8.6 mg oral tablet (20 sources) Start: End: 4 take 1 tablet by mouth twice daily senna-docusate (SENNA-S) 8.6-50 mg per tablet Take 1 tablet by mouth two times a day. 05/19/2024 Active DULoxetine 20 mg delayed release oral capsule (20 sources) Serotonin and Norepinephrine Reuptake Inhibitor Start: take 2 capsules by mouth once daily DULoxetine (CYMBALTA) 20 mg capsule Take 2 capsules by mouth once daily. 180 capsule 1 08/16/2023 Active Start: 08-13-2023 End: 08-16-2023 take 1 capsule [...] Start: 10-27-2022 take 1 capsule by mo uth once daily DULoxetine (CYMBALTA) 20 mg capsule Indications: Anxiety disorder, unspecified type , Radiculopathy, lumbar region , Chronic SI joint pain Take 1 capsule by mouth once daily. 30 capsule 2 10/27/2022 Active Comment on above: Take 1 capsule by mo ut once daily. take 1 capsule by mo [facility] once daily Take 2 capsules by m [facility] once daily. ferrous sulfate 325 mg oral [...] Comment on above: [facility] flu[facility] 200 mg oral tablet (20 sources) Azole Antifungal Start: 01-14-2022 End: 07-29-2023 Fluconazole (Diflucan) 200 mg tablet Active 200 [...] 2 MONTHS Take 2 tablets by mo [facility] every 72 hours. Two (2) X 200 mg tablets = 400 mg 2-3 times a week TAKE 1 TABLET 3x per week hydrALAZINE hydrochloride 10 mg oral tablet (9 sources) Arteriolar Vasodilator Start: 02-01-20 End: 05-19-20 take 1 tablet by mouth three times daily Hydralazine 10 mg Tablet Active 10 mg PO THREE TIMES A DAY 0 February 01, 2024 12:00am lactobacillus acidophilus [id number] unt oral capsule (14 sources) lactobacillus acidophilus 100 mg (1 billion cell) cap(s) Take 1 capsule by mouth once daily. Biotinex ([employer]s probiotic) Active lidocaine 0.05 mg/mg medicated patch [...] 10 mg oral tablet (20 sources) Start: 01-10-2024 take 1 tablet by mouth once daily loratadine (CLARITIN) 10 mg tablet Take 10 mg by mouth once daily. 01/10/2024 Active magnesium citrate 58.2 mg/ml oral solution (20 sources) Start: 02-01-2024 take 300 mL by mouth once daily as needed magnesium citrate solution Take 300 mL by mouth once daily as needed. 02/01/2024 Active melatonin 3 mg oral tablet (20 sources) Start: 05-19-2024 take 2 tablets by mouth once daily [...] 01, 2024 9:02pm Menthol / Zinc Oxide (4 sources) Start: 02-01-2024 Menthol-Zinc O xide (Calmoseptine) [...] 1 tablet by [facility] th once daily. Take 0.5 tablets by mouth once daily. Take 0.5-1 tablets b y mouth once daily. As directed morphine sulfate 20 mg/ml oral solution (12 sources) Opioid Agonist Start: 02-01-2024 Morphine Concentrate [...] 12:00am Multivitamin With Minerals 1 EACH tablet (4 sources) Start: 03-31-2019 take 1 tablet by mouth once daily Multivitamin With Minerals 1 EACH tablet Active 1 NMA PO DAILY March 31, 2019 12:00am nitrofurantoin, macrocrystals 25 mg / nitrofurantoin, monohydrate 75 mg oral capsule (9 sources) Nitrofuran Antibacterial Start: 05-19-2024 End: 05-25-2024 [...] on above: Take 1 capsule by mo [facility] twice daily for 7 days. 24 hr oxybutynin chloride 10 mg extended release oral tablet (20 sources) Cholinergic Muscarinic Antagonist Start: 03-31-2019 End: 09-17-2023 take 1 tablet by mouth once daily oxybutynin ER (DITROPAN XL) 10 mg 24 hr tablet Take 1 tablet by mouth once daily. 90 tablet 1 09/17/2023 Active Start: 03-31-2019 take 1 tablet by [facility] every twenty-four hours at bedtime Oxybutynin Chloride 10 MG tablet extended release 24hr Active 10 mg PO AT BEDTIME March 31, 2019 12:00am Comment on above: Take 1 tablet by [facility] once daily as needed. OVERACTIVE BLADDER take 1 tablet by [facility] once daily if needed for OVERACTIVE BLADDER Take 1 tablet by [facility] once daily. perflutren lipid microspheres 1.3 mL [...] 10 mL injection (DEFINITY) polyethylene glycol [id number] mg powder for oral solution (13 sources) Osmotic Laxative Start: 05-19-2024 polyethylene glycol [...] (THERA-M PLUS) 9 mg iron-400 mcg tablet (14 sources) therapeutic mult ivitamin-minerals (THERA-M PLUS) 9 [...] Tirzepatide (Mounjaro) 5 mg/0.5 mL pen injector (4 sources) Start: 01-10-20 Tirzepatide (Mounjaro) 5 mg/0.5 mL pen injector Active 5 mg SC EVERY WEEK January 10, 2024 12:00am Give every Wednesday. Patient to provide own medication. traMADol hydrochloride 50 mg oral tablet (12 sources) Opioid Agonist Start: 02-01-20 End: 05-19-20 [...] once every month. To be administered at [facility] by nurse 1 mL 12 11/11/2023 Active [...] (2 sources) Benzodiazepine Start: 07-07-19 End: 07-11-19 ALPRAZolam (XANAX) 1 mg tablet Indications: Spondylolisthesis [...] Start: 08-27-2020 take 2 tablets by mo [facility] twice daily, then take 1 tablet by [...] Take by mouth. Take 1 tablet by [facility] twice daily. biotin 2.5 mg oral capsule [...] Comment on above: Take 2,500 mcg by mo [facility] once daily. Blood-Glucose Meter, Drum-type (ACCU-CHEK COMPACT [...] above: USE DIRECTED. Blood-Glucose Meter,Continuous (DEXCOM G7 ROPE COILING MACHINE OPERATOR) misc (20 sources) Start: 01-08-2023 End: 08-11-2023 Blood-Glucose Meter,Continuous (DEXCOM G7 ROPE COILING MACHINE OPERATOR) misc Indications: Type 2 diabetes mellitus with peripheral neuropathy (HCC) use to check sugars 1 Each 0 01/08/2023 08/11/2023 Discontinued Start: 01-08-2023 Blood-Glucose Meter,Continuous (DEXCOM G7 ROPE COILING MACHINE OPERATOR) misc Indications: Type 2 diabetes mellitus with peripheral neuropathy (HCC) use to check sugars 1 Each 0 01/08/2023 Active Start: 12-30-2022 End: 01-05-2023 Blood-Glucose Meter,Continuo us (DEXCOM G7 ROPE COILING MACHINE OPERATOR) misc use to check sugars 1 Each 0 12/30/2022 01/05/2023 Discontinued Start: 12-30-2022 Blood-Glucose Meter,Continuous (DEXCOM G7 ROPE COILING MACHINE OPERATOR) misc use to check sugars 1 Each [...] weeks busPIRone hydrochloride 7.5 mg oral tablet (18 sources) Start: 03-28-2024 End: 08-03-2024 take 1 [...] on above: Take 1 capsule by mo ut twice daily for 10 days. cephalexin 500 [...] on above: Take 1 capsule by mo ut twice daily for 7 days. Take 1 capsule by mo ut three times daily for 10 days. cetirizine hydrochloride 10 mg oral capsule (10 sources) Histamine-1 Receptor Antagonist Start: 03-31-20 19 End: 01-10-20 24 take 1 capsule by [...] oral capsule (20 sources) Lincosamide Antibacterial Start: 023 End: take 2 capsules by mouth every [...] capsule (20 sources) Anti-epileptic Agent Start: 03-04-20 End: 03-29-20 take 1 capsule by mouth at bedtime Gabapentin 300 MG capsule Discontinued 300 mg PO AT BEDTIME March 04, 2015 12:00am January 10, 2024 11:26pm Comment on above: one in morning, two at bedtime Take 1 capsule by [facility] three times daily for 180 days. As [...] Comment on above: Take 2 tablets by [facility] daily with breakfast. hydrocortisone 25 mg/ml topical cream (20 sources) Corticosteroid Start: 07-29-2023 End: 05-07-2024 hydrocortisone 2.5 % cream Apply twice a day to rash on face, then as needed 28 g 3 07/29/2023 05/07/2024 Discontinued (Adjust Sig - Block E-Cancel) Comment on above: Apply twice a day to rash on face, then as needed 3 ml insulin lispro 100 unt/ml pen injector (4 sources) Insulin Analog Start: 01-12-2024 End: 02-01-2024 [...] on above: Take 4 tablets by mo uth daily with breakfast. methocarbamol 500 mg oral [...] Comment on above: Take 1 tablet by [facility] every 6 hours as needed for nausea/vomiting. oxyCODONE hydrochloride 5 mg oral tablet (4 sources) Opioid Agonist Start: End: take 1 [...] Start: 03-17-2019 take 1 capsule by mo [facility] once daily pnv/iron,carb/om-3/fa/fat 1(PRE-JIMY MULTIVITAMINS WITH MINERALS 27 MG-1 MG-300 MG CAP) Take 1 capsule by mouth once daily. 0 0 03/17/2019 Active Comment on above: Take 1 capsule by mo [facility] once daily. regadenoson 0.4 mg injection (LEXISCAN) (1 source) Start: 01-29-20 End: 01-29-20 regadenoson 0.4 mg injection (LEXISCAN) rivaroxaban 15 mg oral tablet (10 sources) Factor Xa Inhibitor Start: 03-31-20 End: 01-10-20 take 1 tablet by mouth twice daily Rivaroxaban 15 MG tablet Discontinued 15 mg PO TWICE A DAY 42 March 31, 2019 12:00am January 10, 2024 [...] Comment on above: [facility] tamsulosin hydrochloride 0.4 mg oral capsule (8 sources) alpha-Adrenergi c [place] Start: 02-28-2022 End: [...] tablet by [facility] twice daily as needed. Problems Active Problems [...] unspecified] 04-28-2024 Episodic Deficiency and other anemia (4 sources) Iron deficiency anemia; Translations: [Iron deficiency anemia, unspecified] 01-12-2024 Episodic Delirium, dementia, and amnestic and other cognitive disorders (20 sources) Dementia; Translations: [Unspecified dementia without behavioral disturbance] Onset: 05-12-2024 05-12-2024 Chronic Diabetes mellitus with complications (20 sources) Type 2 diabetes mellitus; 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] Onset: 10-16-2014 Chronic Diabetes mellitus without complication (6 sources) Diabetes mellitus; Translations: [Type 2 diabetes mellitus without complications] Onset: 02-26-2024 01-12-2024 Chronic Diabetes mellitus without complication (1 source) Glycosuria; Translations: [Glycosuria] Episodic Disorders of lipid metabolism (20 sources) Hyperlipidemia; Translations: [Hyperlipidemia, unspecified] Onset: 01-20-2005 04-21-2015 Chronic Essential hypertension (7 sources) Essential hypertension; Translations: [Essential (primary) hypertension] [...] [Subacute and chronic vulvitis] Episodic Intracranial injury (20 sources) Traumatic hematoma of subdural space of neuraxis; Translations: [Traumatic subdural hemorrhage with loss of consciousness of unspecified duration, initial encounter] Onset: 05-06-2024 05-06-2024 Episodic Malaise and fatigue (1 source) Fatigue; Translations: [Chronic fatigue, unspecified] 02-02-2023 Chronic Miscellaneous mental health disorders (20 sources) Psychological finding; Translations: [Psychological and behavioral factors associated with disorders or diseases classified elsewhere] Onset: 03-29-2007 03-29-2007 Chronic Mood disorders (6 sources) Moderate major depression, single episode; Translations: [Major depressive disorder, single episode, moderate] Chronic Mood disorders (1 source) Mood disorders; Translations: [Depression, unspecified] Onset: 2024 Mycoses (5 sources) Candidiasis of vulva; Translations: [Candidal vulvitis] [...] Open wounds of head; neck; and trunk (9 sources) Scalp laceration; Translations: [Laceration without foreign body of scalp, initial encounter] 03-01-2022 Episodic Other acquired deformities (1 source) Spondylolisthesis, lumbar region; Translations: [Spondylolisthesis of lumbar region] Onset: 03-30-2024 Episodic Other aftercare (20 sources) Long-term current use of anticoagulant; Translations: [style advisor (current) use of anticoagulants] 03-01-2022 Episodic Other and ill-defined heart disease (1 source) Diastolic dysfunction; Translations: [Other ill-defined heart diseases] Chronic Other circulatory disease (10 sources) H/O: hypertension; Translations: [Personal history of other diseases of the circulatory system] 02-16-2022 Episodic Other diseases of bladder and urethra (4 sources) Overactive bladder; Translations: [Overactive bladder] 01-12-2024 Chronic Other diseases of bladder and urethra (1 source) Overactive bladder; Translations: [Overactive bladder] Onset: 2024 Chronic Other endocrine disorders (4 sources) Hyperparathyroidism; Translations: [Hyperparathyroidism , unspecified] 01-12-2024 Chronic Other endocrine disorders (1 source) Hyperparathyroidism, unspecified; Translations: [Hyperparathyroidism , unspecified] Onset: 2024 Chronic Other fractures (1 source) Other fracture of unspecified lumbar vertebra, initial encounter for closed fracture; Translations: [Other fracture of unspecified lumbar vertebra, initial encounter for closed fracture (HCC)] Onset: 10-03-2018 Episodic Other hematologic conditions (10 sources) History of anemia; Translations: [Personal history [...] injuries and conditions due to external causes (9 sources) Closed injury of head; Translations: [Unspecified [...] [Chronic cough] Episodic Other nervous system disorders (16 sources) Pneumocephalus; Translations: [Other specified disorders of brain] Onset: 05-06-2024 05-06-2024 Chronic Other nervous system disorders (16 sources) Midline shift of brain; Translations: [Midline [...] and metabolic disorders (10 sources) Obese class I; Translations: [Obesity, unspecified] [...] nutritional; endocrine; and metabolic disorders (10 sources) History of hypercholesterolemia ; Translations: [Personal history of other endocrine, nutritional and metabolic disease] 02-16-2022 Episodic Other nutritional; endocrine; and metabolic disorders (10 sources) History of diabetes mellitus type 2; [...] 01-20-2005 01-20-2005 Chronic Other upper respiratory disease (4 sources) Allergic rhinitis; Translations: [Allergic rhinitis, unspecified] 01-12-2024 Chronic Other upper respiratory disease (1 source) Allergic rhinitis, unspecified; Translations: [Allergic rhinitis, unspecified] Onset: 2024 Chronic Residual codes; unclassified (2 sources) Obstructive sleep apnea syndrome; Translations: [Obstructive sleep apnea (adult) (pediatric)] 06-27-2023 Chronic Residual codes; unclassified (10 sources) History of chest pain; Translations: [Personal [...] claudication present] Onset: 10-03-2018 Superficial injury; contusion (11 sources) Contusion of back; Translations: [Contusion of unspecified back wall of thorax, initial encounter] 02-26-2023 Episodic Unclassified (1 source) Unknown / UNK(Unknown) Onset: 09-08-2017 Unclassified (20 sources) Aortic valve sclerosis; 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] Onset: 07-09-2015 07-09-2015 Unclassified (1 source) Acute cough; Translations: [Acute cough] Onset: 11-17-2024 Unclassified (1 source) Low back pain, unspecified; [...] Onset: 9 03-17-2019 Episodic Acute posthemorrhagic anemia (16 sources) Acute posthemorrhagic anemia; Translations: [Acute posthemorrhagic [...] Anemia, unspecified; Translations: [Anemia, unspecified type] Onset: Episodic Deficiency and other anemia (1 source) Iron deficiency anemia, unspecified; Translations: [Iron deficiency anemia, unspecified] Onset: 4 Episodic E Codes: Fall (20 sources) Accidental fall ; Translations: [Unspecified fall, initial encounter] Onset: 4 03-01-2022 Episodic Fluid and electrolyte disorders (16 sources) Hyperkalemia; Translations: [Hyperkalemia] Onset: 4 05-08-2024 Episodic Fracture of neck of femur (hip) (20 sources) Closed intertrochanteric fracture; Translations: [Displaced intertrochanteric fracture of left femur, initial encounter for closed fracture] Onset: 4 01-20-2024 Episodic Genitourinary symptoms and ill-defined conditions (5 sources) Increased frequency of urination; Translations: [Frequency of micturition] Onset: 4 Episodic Heart valve disorders (20 sources) Heart murmur; Translations: [Cardiac murmur, unspecified] Onset: 5 06-21-2014 Episodic Malaise and fatigue (10 sources) Fatigue; Translations: [Other fatigue] Onset: 4 Episodic Nonspecific chest pain (20 sources) Chest pain, unspecified; Translations: [Atypical chest pain] Onset: 5 08-08-2014 Episodic Nutritional deficiencies (16 sources) Iron deficiency; Translations: [Iron deficiency] Onset: 4 Episodic Other acquired deformities (20 sources) Lumbar spondylolisthesis; Translations: [Spondylolisthesis, lumbar region] Onset: 8 10-21-2017 Episodic Other aftercare (20 sources) Patient encounter status; Translations: [Encounter for therapeutic drug level monitoring] Onset: 1 Resolved: 2 02-02-2023 Episodic Other bone disease and musculoskeletal deformities [...] surgery status] Onset: 5 04-21-2015 Episodic Other hematologic conditions (1 source) Personal [...] Translations: [Pruritic condition] Onset: 4 Episodic Other non-traumatic joint disorders [...] Onset: 9 04-10-2019 Episodic Residual codes; unclassified (16 sources) At risk of epileptic fits; Translations: [Other specified personal risk factors, not elsewhere classified] Onset: 4 05-06-2024 Episodic Residual codes; unclassified (14 sources) Delirium; Translations: [Disorientation, unspecified] Onset: 4 05-12-2024 Episodic Residual codes; unclassified (1 source) Localized edema; Translations: [Pedal edema] Onset: 4 Episodic Residual codes; unclassified (1 source) Personal history of other specified conditions; Translations: [Personal history of other specified conditions] Onset: 4 Episodic Spondylosis; intervertebral disc disorders; other back problems (20 sources) Thoracic radiculopathy; Translations: [Radiculopathy, thoracic region] Onset: 5 Episodic Sprains and strains (20 sources) Lumbar sprain; Translations: [Sprain of ligaments of lumbar spine, initial encounter] Onset: 3 07-15-2012 Episodic Unclassified (20 sources) Type 2 diabetes mellitus without complication; Translations: [Diabetes mellitus type 2, uncontrolled, without complications] Onset: 5 Resolved: 2 08-21-2021 Urinary tract infections (14 sources) Acute urinary tract infection; Translations: [Urinary tract infection, site not specified] Onset: 5 Episodic Results Test Name Value Interpretation Reference Range Facility Hemoglobin A1con 12-19-2024 HbA1c (Bld) [Mass fraction] 6.4 % High <=5.6 [facility] Comment on above: Order Comment: 303.2 Result Comment: Norm al < 5.7 % Prediabetic 5.7 - 6.4 % Diabetic >or= 6.5 % Please note range changes. Performed By: #### L 501.9985 ####[facility] [address] [facility]. [place], [place], [address] Hemoglobin A1con 11-03-2024 HbA1c (Bld) [Mass fraction] 6.7 % High <=5.6 [facility] Comment on above: Order Comment: 303.2 Result Comment: Norm al < 5.7 % Prediabetic 5.7 - 6.4 % Diabetic >or= 6.5 % Please note range changes. Performed By: #### L 501.9985 ####[facility] [address] [facility]. [place], [place], [address] Absolute lymphocyte countOrd ered By: Deep Dela Cruz on 10-31-2024 Lymphocytes Auto (Unsp spec) [#/Vol] 1.07 10*3/uL 0.83-4.51 [facility] Absolute neutrophil countOrd ered By: Deep Dela Cruz on 10-31-2024 Neutrophils (Bld) [#/Vol] 12.1 10*3/uL High 2.0-7.7 [facility] Anion gap in Serum or Plasma Ordered By: Deep Dela Cruz on 10-31-2024 Anion gap [Moles/Vol] 12 mmol/L 5-15 [facility] Automated lymphocyte count a s percentage of total leukocytesOrdered By: Deep Dela Cruz on 10-31-2024 Lymphocytes/100 WBC Auto (Unsp spec) 7.5 % Low 19-41 [facility] BUN/creatinine ratioOrdered By: Deep Dela Cruz on 10-31-2024 Urea nitrogen/Creatinine [Mass ratio] 60.5 mg/mg High 10-20 [facility] Basic Metabolic Profile (BMP )on 10-31-2024 BUN/CRE 60.5 RATIO High - [facility] Comment on above: Order Comment: 303.2 Performed By: #### L 500.2500, L100.0100 ####[facility] [address] [place], [address] Calcium [Mass/Vol] 9.9 mg/dL Normal 7.6-11.0 [facility] Comment on above: Order Comment: 303.2 Performed By: #### L 500.2500, L100.0100 ####[facility] [address] [place], [address] Chloride [Moles/Vol] 102 mmol/L Normal 98-108 [facility] Comment on above: Order Comment: 303.2 Performed By: #### L 500.2500, L100.0100 ####[facility] [address] [place], [address] CO2 [Moles/Vol] 21.8 mmol/L Normal 21.0-32.0 [facility] Comment on above: Order Comment: 303.2 Performed By: #### L 500.2500, L100.0100 ####[facility] [address] [place], [address] Creatinine [Mass/Vol] 0.56 mg/dL Low 0.70-1.20 [facility] Comment on above: Order Comment: 303.2 Performed By: #### L 500.2500, L100.0100 ####[facility] [address] [place], [address] GAP 12 Normal 5-15 [facility] Comment on above: Order Comment: 303.2 Performed By: #### L 500.2500, L100.0100 ####[facility] [address] [place], [address] GFR/1.73 sq M.predicted among non-blacks MDRD (S/P/Bld) [Vol rate/Area] 91 mL/min/{1.73_m2} Normal >60 [facility] Comment on above: Order Comment: 303.2 Result Comment: mL/m in/1.73m2 CKD-EPI Creatinine Equation (2020) Performed By: #### L 500.2500, L100.0100 ####[facility] [address] [place], [address] Glucose [Mass/Vol] 161 mg/dL High 70-99 [facility] Comment on above: Order Comment: 303.2 Performed By: #### L 500.2500, L100.0100 ####[facility] [address] [place], [address] Potassium [Moles/Vol] 3.8 mmol/L Normal 3.3-5.1 [facility] Comment on above: Order Comment: 303.2 Performed By: #### L 500.2500, L100.0100 ####[facility] [address] [place], [address] Sodium [Moles/Vol] 135 mmol/L Normal 133-145 [facility] Comment on above: Order Comment: 303.2 Performed By: #### L 500.2500, L100.0100 ####[facility] [address] [place], [address] Urea nitrogen [Mass/Vol] 34 mg/dL High 4-19 [facility] Comment on above: Order Comment: 303.2 Performed By: #### L 500.2500, L100.0100 ####[facility] [address] [place], [address] Basophil percentageOrdered B y: Deep Dela Cruz on 10-31-2024 Basophils/100 WBC (Bld) 0.4 % 0-1 [facility] CBC W/Diff, Automatedon 06-0 Absolute Lymph 1.07 X10 3/uL Normal 0.83-4.51 [facility] Comment on above: Order Comment: 303.2 Performed By: #### L 500.2500, L100.0100 ####[facility] [address] [place], [address] Absolute Neut 12.1 X10 3/uL High 2.0-7.7 [facility] Comment on above: Order Comment: 303.2 Performed By: #### L 500.2500, L100.0100 ####[facility] [address] [place], [address] Basophils/100 WBC (Bld) 0.4 % Normal 0-1 [facility] Comment on above: Order Comment: 303.2 Performed By: #### L 500.2500, L100.0100 ####[facility] [address] [place], [address] Eosinophils/100 WBC (Bld) 0.1 % Normal 0-5 [facility] Comment on above: Order Comment: 303.2 Performed By: #### L 500.2500, L100.0100 ####[facility] [address] [place], [address] Erythrocyte distribution width (RBC) [Ratio] 15.0 % High 11.6-14.6 [facility] Comment on above: Order Comment: 303.2 Performed By: #### L 500.2500, L100.0100 ####[facility] [address] [place], [address] Hematocrit (Bld) [Volume fraction] 34.0 % Low 37-47 [facility] Comment on above: Order Comment: 303.2 Performed By: #### L 500.2500, L100.0100 ####[facility] [address] [place], [address] Hemoglobin (Bld) [Mass/Vol] 11.1 g/dL Low 12.0-15.0 [facility] Comment on above: Order Comment: 303.2 Performed By: #### L 500.2500, L100.0100 ####[facility] [address] [place], [address] IG% 2.400 High 0.0-0.9 [facility] Comment on above: Order Comment: 303.2 Result Comment: IG% - Immature Granulocytes (promyelocytes, myelocytes andmetamyelocytes) > 1% indicates that a LEFT SHIFT is Present. Performed By: #### L 500.2500, L100.0100 ####[facility] [address] [place], [address] Lymphocytes/100 WBC (Bld) 7.5 % Low 19-41 [facility] Comment on above: Order Comment: 303.2 Performed By: #### L 500.2500, L100.0100 ####[facility] [address] [place], [address] MCH (RBC) [Entitic mass] 30.0 pg Normal 27.0-32.0 [facility] Comment on above: Order Comment: 303.2 Performed By: #### L 500.2500, L100.0100 ####[facility] [address] [place], [address] MCHC (RBC) [Mass/Vol] 32.6 g/dL Normal 32-36 [facility] Comment on above: Order Comment: 303.2 Performed By: #### L 500.2500, L100.0100 ####[facility] [address] [place], [address] MCV (RBC) [Entitic vol] 91.9 fL Normal 81-99 [facility] Comment on above: Order Comment: 303.2 Performed By: #### L 500.2500, L100.0100 ####[facility] [address] [place], [address] Monocytes/100 WBC (Bld) 5.6 % Normal 0-10 [facility] Comment on above: Order Comment: 303.2 Performed By: #### L 500.2500, L100.0100 ####[facility] [address] [place], [address] Neutrophils/100 WBC (Bld) 84.0 % High 47-70 [facility] Comment on above: Order Comment: 303.2 Performed By: #### L 500.2500, L100.0100 ####[facility] [address] [place], [address] Nucleated RBC (Bld) [#/Vol] 0 10*3/uL Normal 0-5 [facility] Comment on above: Order Comment: 303.2 Performed By: #### L 500.2500, L100.0100 ####[facility] [address] [place], [address] Platelet mean volume (Bld) [Entitic vol] 10.0 fL Normal 6.2-12.0 [facility] Comment on above: Order Comment: 303.2 Performed By: #### L 500.2500, L100.0100 ####[facility] [address] [place], [address] Platelets (Bld) [#/Vol] 555 10*3/uL High 150-450 [facility] Comment on above: Order Comment: 303.2 Performed By: #### L 500.2500, L100.0100 ####[facility] [address] [place], [address] RBC (Bld) [#/Vol] 3.70 10*6/uL Low 4.2-5.4 [facility] Comment on above: Order Comment: 303.2 Performed By: #### L 500.2500, L100.0100 ####[facility] [address] [place], [address] RDW SD 50.1 fl High 35.1-43.9 [facility] Comment on above: Order Comment: 303.2 Performed By: #### L 500.2500, L100.0100 ####[facility] [address] [place], [address] WBC (Bld) [#/Vol] 14.4 10*3/uL High 4.4-11.0 [facility] Comment on above: Order Comment: 303.2 Performed By: #### L 500.2500, L100.0100 ####[facility] [address] [place], [address] Carbon dioxide, total [Moles /volume] in Central venous bloodOrdered By: Deep Dela Cruz on 10-31-2024 CO2 [Moles/Vol] 21.8 mmol/L 21.0-32.0 [facility] Chloride assayOrdered By: Fried on 10-31-2024 Chloride [Moles/Vol] 102 mmol/L 98-108 [facility] Eosinophil percentageOrdered By: Deep Dela Cruz on 10-31-2024 Eosinophils/100 WBC (Bld) 0.1 % 0-5 [facility] Erythrocyte distribution wid th ratioOrdered By: Deep Dela Cruz on 10-31-2024 Erythrocyte distribution width (RBC) [Ratio] 15.0 % High 11.6-14.6 [facility] Erythrocyte distribution wid th standard deviationOrdered By: Deep Dela Cruz on 10-31-2024 Erythrocyte distribution width (RBC) [Ratio] 50.1 fl High 35.1-43.9 [facility] Glomerular filtration rate ( GFR) estimation/1.73 sq m using serum, plasma, or whole bOrdered By: Deep Dela Cruz on 10-31-2024 GFR/1.73 sq M.predicted among non-blacks MDRD (S/P/Bld) [Vol rate/Area] 91 mL/min/{1.73_m2} >60 [facility] Comment on above: mL/min/1.73m2 CKD-EP I Creatinine Equation (2020) Hematocrit Auto (Bld) [Volum e fraction]Ordered By: Deep Dela Cruz on 10-31-2024 Hematocrit (Bld) [Volume fraction] 34.0 % Low 37-47 [facility] Hemoglobin measurementOrdere d By: Deep Dela Cruz on 10-31-2024 Hemoglobin (Bld) [Mass/Vol] 11.1 g/dL Low 12.0-15.0 [facility] Immature granulocytes/100 WB C Auto (Bld)Ordered By: Deep Dela Cruz on 10-31-2024 Immature granulocytes/100 WBC (Bld) 2.400 % High 0.0-0.9 [facility] Comment on above: IG% - Immature Granu locytes (promyelocytes, myelocytes and metamyelocytes) > 1% indicates that a LEFT SHIFT is Present. MCV (mean corpuscular volume ) determinationOrdered By: Deep Dela Cruz on 10-31-2024 MCV (RBC) [Entitic vol] 91.9 fL 81-99 [facility] Mean corpuscular hemoglobin (MCH) determinationOrdered By: Deep Dela Cruz on 10-31-2024 MCH (RBC) [Entitic mass] 30.0 pg 27.0-32.0 [facility] Mean corpuscular hemoglobin concentration (MCHC) determinationOrdered By: Deep Dela Cruz on 10-31-2024 MCHC (RBC) [Mass/Vol] 32.6 g/dL 32-36 [facility] Mean platelet volume determi nationOrdered By: Deep Dela Cruz on 10-31-2024 Platelet mean volume (Bld) [Entitic vol] 10.0 fL 6.2-12.0 [facility] Monocyte percentageOrdered B y: Deep Dela Cruz on 10-31-2024 Monocytes/100 WBC (Bld) 5.6 % 0-10 [facility] Neutrophil percentageOrdered By: Deep Dela Cruz on 10-31-2024 Neutrophils/100 WBC (Bld) 84.0 % High 47-70 [facility] Nucleated red blood cell per centageOrdered By: Deep Dela Cruz on 10-31-2024 Nucleated RBC/100 WBC (Bld) [Ratio] 0 % 0-5 [facility] Platelet countOrdered By: Fried on 10-31-2024 Platelets (Bld) [#/Vol] 555 10*3/uL High 150-450 [facility] Potassium measurement (mass/ volume)Ordered By: Deep Dela Cruz on 10-31-2024 Potassium (Unsp spec) [Mass/Vol] 3.8 mmol/L 3.3-5.1 [facility] RBC Auto (Bld) [#/Vol]Ordere d By: Deep Dela Cruz on 10-31-2024 RBC (Bld) [#/Vol] 3.70 10*6/uL Low 4.2-5.4 [facility] Serum creatinine measurement (mass/volume)Ordered By: Deep Dela Cruz on 10-31-2024 Creatinine [Mass/Vol] 0.56 mg/dL Low 0.70-1.20 [facility] Serum glucose measurement (m ass/volume)Ordered By: Deep Dela Cruz on 10-31-2024 Glucose [Mass/Vol] 161 mg/dL High 70-99 [facility] Serum or plasma calcium jessi urement (mass/volume)Ordered By: Deep Dela Cruz on 10-31-2024 Calcium [Mass/Vol] 9.9 mg/dL 7.6-11.0 [facility] Serum or plasma urea nitroge n measurement (mass/volume)Ordered By: Deep Dela Cruz on 10-31-2024 Urea nitrogen [Mass/Vol] 34 mg/dL High 4-19 [facility] Sodium levelOrdered By: Deep Dela Cruz on 10-31-2024 Sodium [Moles/Vol] 135 mmol/L 133-145 [facility] White blood cell (WBC) count Ordered By: Deep Dela Cruz on 10-31-2024 WBC (Bld) [#/Vol] 14.4 10*3/uL High 4.4-11.0 [facility] Anion gap in Serum or Plasma Ordered By: Deep Dela Cruz on 10-26-2024 Anion gap [Moles/Vol] 11 mmol/L 5-15 [facility] BUN/creatinine ratioOrdered By: Deep Dela Cruz on 10-26-2024 Urea nitrogen/Creatinine [Mass ratio] 51.9 mg/mg High 10- [facility] Basic Metabolic Profile (BMP )on 10-26-2024 BUN/CRE 51.9 RATIO High 03-19 [facility] Comment on above: Order Comment: 303.2 Performed By: #### L 100.0500, L500.2500 ####[facility] [address] [place] [place], [address] Calcium [Mass/Vol] 9.1 mg/dL Normal 7.6-11.0 [facility] Comment on above: Order Comment: 303.2 Performed By: #### L 100.0500, L500.2500 ####[facility] [address] [place], [address] Chloride [Moles/Vol] 102 mmol/L Normal 98-108 [facility] Comment on above: Order Comment: 303.2 Performed By: #### L 100.0500, L500.2500 ####[facility] [address] [place], [address] CO2 [Moles/Vol] 21.2 mmol/L Normal 21.0-32.0 [facility] Comment on above: Order Comment: 303.2 Performed By: #### L 100.0500, L500.2500 ####[facility] [address] [place], [address] Creatinine [Mass/Vol] 0.39 mg/dL Low 0.70-1.20 [facility] Comment on above: Order Comment: 303.2 Performed By: #### L 100.0500, L500.2500 ####[facility] [address] [place], [address] GAP 11 Normal 5-15 [facility] Comment on above: Order Comment: 303.2 Performed By: #### L 100.0500, L500.2500 ####[facility] [address] [place], [address] GFR/1.73 sq M.predicted among non-blacks MDRD (S/P/Bld) [Vol rate/Area] 99 mL/min/{1.73_m2} Normal >60 [facility] Comment on above: Order Comment: 303.2 Result Comment: mL/m in/1.73m2 CKD-EPI Creatinine Equation (2020) Performed By: #### L 100.0500, L500.2500 ####[facility] [address] [place], [address] Glucose [Mass/Vol] 114 mg/dL High 70-99 [facility] Comment on above: Order Comment: 303.2 Performed By: #### L 100.0500, L500.2500 ####[facility] [address] [place], [address] Potassium [Moles/Vol] 3.7 mmol/L Normal 3.3-5.1 [facility] Comment on above: Order Comment: 303.2 Performed By: #### L 100.0500, L500.2500 ####[facility] [address] [place], [address] Sodium [Moles/Vol] 135 mmol/L Normal 133-145 [facility] Comment on above: Order Comment: 303.2 Performed By: #### L 100.0500, L500.2500 ####[facility] [address] [place], [address] Urea nitrogen [Mass/Vol] 20 mg/dL High 4-19 [facility] Comment on above: Order Comment: 303.2 Performed By: #### L 100.0500, L500.2500 ####[facility] [address] [place], [address] CBC-Complete Blood Cnt No Di ffon 10-26-2024 Erythrocyte distribution width (RBC) [Ratio] 15.3 % High 11.6-14.6 [facility] Comment on above: Order Comment: 303.2 Performed By: #### L 100.0500, L500.2500 ####[facility] [address] [place], [address] Hematocrit (Bld) [Volume fraction] 33.1 % Low 37-47 [facility] Comment on above: Order Comment: 303.2 Performed By: #### L 100.0500, L500.2500 ####[facility] [address] [place], [address] Hemoglobin (Bld) [Mass/Vol] 10.5 g/dL Low 12.0-15.0 [facility] Comment on above: Order Comment: 303.2 Performed By: #### L 100.0500, L500.2500 ####[facility] [address] [place], [address] MCH (RBC) [Entitic mass] 30.1 pg Normal 27.0-32.0 [facility] Comment on above: Order Comment: 303.2 Performed By: #### L 100.0500, L500.2500 ####[facility] [address] [place], [address] MCHC (RBC) [Mass/Vol] 31.7 g/dL Low 32-36 [facility] Comment on above: Order Comment: 303.2 Performed By: #### L 100.0500, L500.2500 ####[facility] [address] [place], [address] MCV (RBC) [Entitic vol] 94.8 fL Normal 81-99 [facility] Comment on above: Order Comment: 303.2 Performed By: #### L 100.0500, L500.2500 ####[facility] [address] [place], [address] Platelet mean volume (Bld) [Entitic vol] 10.6 fL Normal 6.2-12.0 [facility] Comment on above: Order Comment: 303.2 Performed By: #### L 100.0500, L500.2500 ####[facility] [address] [place], [address] Platelets (Bld) [#/Vol] 328 10*3/uL Normal 150-450 [facility] Comment on above: Order Comment: 303.2 Performed By: #### L 100.0500, L500.2500 ####[facility] [address] [place], [address] RBC (Bld) [#/Vol] 3.49 10*6/uL Low 4.2-5.4 [facility] Comment on above: Order Comment: 303.2 Performed By: #### L 100.0500, L500.2500 ####[facility] [address] [place], [address] RDW SD 53.2 fl High 35.1-43.9 [facility] Comment on above: Order Comment: 303.2 Performed By: #### L 100.0500, L500.2500 ####[facility] [address] [place], [address] WBC (Bld) [#/Vol] 9.9 10*3/uL Normal 4.4-11.0 [facility] Comment on above: Order Comment: 303.2 Performed By: #### L 100.0500, L500.2500 ####[facility] [address] [place], [address] Carbon dioxide, total [Moles /volume] in Central venous bloodOrdered By: Deep Dela Cruz on 10-26-2024 CO2 [Moles/Vol] 21.2 mmol/L 21.0-32.0 [facility] Chloride assayOrdered By: Fried on 10-26-2024 Chloride [Moles/Vol] 102 mmol/L 98-108 [facility] Erythrocyte distribution wid th ratioOrdered By: Deep Dela Cruz on 10-26-2024 Erythrocyte distribution width (RBC) [Ratio] 15.3 % High 11.6-14.6 [facility] Erythrocyte distribution wid th standard deviationOrdered By: Deep Dela Cruz on 10-26-2024 Erythrocyte distribution width (RBC) [Ratio] 53.2 fl High 35.1-43.9 [facility] Glomerular filtration rate ( GFR) estimation/1.73 sq m using serum, plasma, or whole bOrdered By: Deep Dela Cruz on 10-26-2024 GFR/1.73 sq M.predicted among non-blacks MDRD (S/P/Bld) [Vol rate/Area] 99 mL/min/{1.73_m2} >60 [facility] Comment on above: mL/min/1.73m2 CKD-EP I Creatinine Equation (2020) Hematocrit Auto (Bld) [Volum e fraction]Ordered By: Deep Dela Cruz on 10-26-2024 Hematocrit (Bld) [Volume fraction] 33.1 % Low 37-47 [facility] Hemoglobin measurementOrdere d By: Deep Dela Cruz on 10-26-2024 Hemoglobin (Bld) [Mass/Vol] 10.5 g/dL Low 12.0-15.0 [facility] MCV (mean corpuscular volume ) determinationOrdered By: Deep Dela Cruz on 10-26-2024 MCV (RBC) [Entitic vol] 94.8 fL 81-99 [facility] Mean corpuscular hemoglobin (MCH) determinationOrdered By: Deep Dela Cruz on 10-26-2024 MCH (RBC) [Entitic mass] 30.1 pg 27.0-32.0 [facility] Mean corpuscular hemoglobin concentration (MCHC) determinationOrdered By: Deep Dela Cruz on 10-26-2024 MCHC (RBC) [Mass/Vol] 31.7 g/dL Low 32-36 [facility] Mean platelet volume determi nationOrdered By: Deep Dela Cruz on 10-26-2024 Platelet mean volume (Bld) [Entitic vol] 10.6 fL 6.2-12.0 [facility] Platelet countOrdered By: Fried on 10-26-2024 Platelets (Bld) [#/Vol] 328 10*3/uL 150-450 [facility] Potassium measurement (mass/ volume)Ordered By: Deep Dela Cruz on 10-26-2024 Potassium (Unsp spec) [Mass/Vol] 3.7 mmol/L 3.3-5.1 [facility] RBC Auto (Bld) [#/Vol]Ordere d By: Deep Dela Cruz on 10-26-2024 RBC (Bld) [#/Vol] 3.49 10*6/uL Low 4.2-5.4 [facility] Serum creatinine measurement (mass/volume)Ordered By: Deep Dela Cruz on 10-26-2024 Creatinine [Mass/Vol] 0.39 mg/dL Low 0.70-1.20 [facility] Serum glucose measurement (m ass/volume)Ordered By: Deep Dela Cruz on 10-26-2024 Glucose [Mass/Vol] 114 mg/dL High 70-99 [facility] Serum or plasma calcium jessi urement (mass/volume)Ordered By: Deep Dela Cruz on 10-26-2024 Calcium [Mass/Vol] 9.1 mg/dL 7.6-11.0 [facility] Serum or plasma urea nitroge n measurement (mass/volume)Ordered By: Deep Dela Cruz on 10-26-2024 Urea nitrogen [Mass/Vol] 20 mg/dL High 4-19 [facility] Sodium levelOrdered By: Deep Dela Cruz on 10-26-2024 Sodium [Moles/Vol] 135 mmol/L 133-145 [facility] White blood cell (WBC) count Ordered By: eDep Dela Cruz on 10-26-2024 WBC (Bld) [#/Vol] 9.9 10*3/uL 4.4-11.0 [facility] Hemoglobin A1con 09-26-2024 HbA1c (Bld) [Mass fraction] 5.8 % High <=5.6 [facility] Comment on above: Order Comment: 303.2 Result Comment: Norm al < 5.7 % Prediabetic 5.7 - 6.4 % Diabetic >or= 6.5 % Please note range changes. Performed By: #### L 501.9985 ####[facility] [address] [place] [place], [address] Hemoglobin A1c percentageOrd ered By: Deep Dela Cruz on 09-26-2024 HbA1c (Bld) [Mass fraction] 5.8 % High <5.7 [facility] Comment on above: Normal < 5.7 % Predi abetic 5.7 - 6.4 % Diabetic >or= 6.5 % Please note range changes. Anion gap in Serum or Plasma Ordered By: Deep Dela Cruz on 09-21-2024 Anion gap [Moles/Vol] 10 mmol/L 5-15 [facility] BUN/creatinine ratioOrdered By: Deep Dela Cruz on 09-21-2024 Urea nitrogen/Creatinine [Mass ratio] 20.3 mg/mg High 10-20 [facility] Bilirubin, totalOrdered By: Deep Dela Cruz on 09-21-2024 Bilirubin [Mass/Vol] 0.22 mg/dL 0.00-1.30 [facility] CBC-Complete Blood Cnt No Di ffon 09-21-2024 Erythrocyte distribution width (RBC) [Ratio] 18.6 % High 11.6-14.6 [facility] Comment on above: Order Comment: 303-2 Performed By: #### L 500.4050, L100.0500 ####[facility] [address] [place], [address] Hematocrit (Bld) [Volume fraction] 39.8 % Normal 37-47 [facility] Comment on above: Order Comment: 303-2 Performed By: #### L 500.4050, L100.0500 ####[facility] [address] [place], [address] Hemoglobin (Bld) [Mass/Vol] 12.4 g/dL Normal 12.0-15.0 [facility] Comment on above: Order Comment: 303-2 Performed By: #### L 500.4050, L100.0500 ####[facility] [address] [place], [address] MCH (RBC) [Entitic mass] 28.6 pg Normal 27.0-32.0 [facility] Comment on above: Order Comment: 303-2 Performed By: #### L 500.4050, L100.0500 ####[facility] [address] [place], [address] MCHC (RBC) [Mass/Vol] 31.2 g/dL Low 32-36 [facility] Comment on above: Order Comment: 303-2 Performed By: #### L 500.4050, L100.0500 ####[facility] [address] [place], [address] MCV (RBC) [Entitic vol] 91.9 fL Normal 81-99 [facility] Comment on above: Order Comment: 303-2 Performed By: #### L 500.4050, L100.0500 ####[facility] [address] [place], [address] Platelet mean volume (Bld) [Entitic vol] 10.4 fL Normal 6.2-12.0 [facility] Comment on above: Order Comment: 303-2 Performed By: #### L 500.4050, L100.0500 ####[facility] [address] [place], [address] Platelets (Bld) [#/Vol] 320 10*3/uL Normal 150-450 [facility] Comment on above: Order Comment: 303-2 Performed By: #### L 500.4050, L100.0500 ####[facility] [address] [place], [address] RBC (Bld) [#/Vol] 4.33 10*6/uL Normal 4.2-5.4 [facility] Comment on above: Order Comment: 303-2 Performed By: #### L 500.4050, L100.0500 ####[facility] [address] [place], [address] RDW SD 62.9 fl High 35.1-43.9 [facility] Comment on above: Order Comment: 303-2 Performed By: #### L 500.4050, L100.0500 ####[facility] [address] [place], [address] WBC (Bld) [#/Vol] 6.5 10*3/uL Normal 4.4-11.0 [facility] Comment on above: Order Comment: 303-2 Performed By: #### L 500.4050, L100.0500 ####[facility] [address] [place], [address] Carbon dioxide, total [Moles /volume] in Central venous bloodOrdered By: Deep Dela Cruz on 09-21-2024 CO2 [Moles/Vol] 22.1 mmol/L 21.0-32.0 [facility] Chloride assayOrdered By: Fried on 09-21-2024 Chloride [Moles/Vol] 105 mmol/L 98-108 [facility] Comprehensive Metabolic Prof ilon 09-21-2024 Albumin [Mass/Vol] 2.6 g/dL Low 3.4-4.8 [facility] Comment on above: Order Comment: 303-2 Performed By: #### L 500.4050, L100.0500 ####[facility] [address] [place], [address] Albumin/Globulin [Mass ratio] 0.8 {ratio} Low 0.9-2.4 [facility] Comment on above: Order Comment: 303-2 Performed By: #### L 500.4050, L100.0500 ####[facility] [address] [place], [address] ALK PHOS 124 U/L High 35-104 [facility] Comment on above: Order Comment: 303-2 Performed By: #### L 500.4050, L100.0500 ####[facility] [address] [place], [address] ALT [Catalytic activity/Vol] 11 U/L Normal <=34 [facility] Comment on above: Order Comment: 303-2 Performed By: #### L 500.4050, L100.0500 ####[facility] [address] [place], [address] AST [Catalytic activity/Vol] 26 U/L Normal <=31 [facility] Comment on above: Order Comment: 303-2 Performed By: #### L 500.4050, L100.0500 ####[facility] [address] [place], [address] Bilirubin [Mass/Vol] 0.22 mg/dL Normal 0.00-1.30 [facility] Comment on above: Order Comment: 303-2 Performed By: #### L 500.4050, L100.0500 ####[facility] [address] [place], [address] BUN/CRE 20.3 RATIO High 10-20 [facility] Comment on above: Order Comment: 303-2 Performed By: #### L 500.4050, L100.0500 ####[facility] [address] [place], [address] Calcium [Mass/Vol] 8.9 mg/dL Normal 7.6-11.0 [facility] Comment on above: Order Comment: 303-2 Performed By: #### L 500.4050, L100.0500 ####[facility] [address] [place], [address] Chloride [Moles/Vol] 105 mmol/L Normal 98-108 [facility] Comment on above: Order Comment: 303-2 Performed By: #### L 500.4050, L100.0500 ####[facility] [address] [place], [address] CO2 [Moles/Vol] 22.1 mmol/L Normal 21.0-32.0 [facility] Comment on above: Order Comment: 303-2 Performed By: #### L 500.4050, L100.0500 ####[facility] [address] [place], [address] Creatinine [Mass/Vol] 0.66 mg/dL Low 0.70-1.20 [facility] Comment on above: Order Comment: 303-2 Performed By: #### L 500.4050, L100.0500 ####[facility] [address] [place], [address] GAP 10 Normal 5-15 [facility] Comment on above: Order Comment: 303-2 Performed By: #### L 500.4050, L100.0500 ####[facility] [address] [place], [address] GFR/1.73 sq M.predicted among non-blacks MDRD (S/P/Bld) [Vol rate/Area] 88 mL/min/{1.73_m2} Normal >60 [facility] Comment on above: Order Comment: 303-2 Result Comment: mL/m in/1.73m2 CKD-EPI Creatinine Equation (2020) Performed By: #### L 500.4050, L100.0500 ####[facility] [address] [place], [address] Globulin (S) [Mass/Vol] 3.5 g/dL Normal 2.2-4.2 [facility] Comment on above: Order Comment: 303-2 Performed By: #### L 500.4050, L100.0500 ####[facility] [address] [place], [address] Glucose [Mass/Vol] 81 mg/dL Normal 70-99 [facility] Comment on above: Order Comment: 303-2 Performed By: #### L 500.4050, L100.0500 ####[facility] [address] [place], [address] Potassium [Moles/Vol] 4.0 mmol/L Normal 3.3-5.1 [facility] Comment on above: Order Comment: 303-2 Performed By: #### L 500.4050, L100.0500 ####[facility] [address] [place], [address] Sodium [Moles/Vol] 137 mmol/L Normal 133-145 [facility] Comment on above: Order Comment: 303-2 Performed By: #### L 500.4050, L100.0500 ####[facility] [address] [place], [address] T PROT 6.1 g/dL Normal 5.9-8.4 [facility] Comment on above: Order Comment: 303-2 Performed By: #### L 500.4050, L100.0500 ####[facility] [address] [place], [address] Urea nitrogen [Mass/Vol] 13 mg/dL Normal 4-19 [facility] Comment on above: Order Comment: 303-2 Performed By: #### L 500.4050, L100.0500 ####[facility] [address] [place], [address] Erythrocyte distribution wid th ratioOrdered By: Deep Dela Cruz on 09-21-2024 Erythrocyte distribution width (RBC) [Ratio] 18.6 % High 11.6-14.6 [facility] Erythrocyte distribution wid th standard deviationOrdered By: Deep Dela Cruz on 09-21-2024 Erythrocyte distribution width (RBC) [Ratio] 62.9 fl High 35.1-43.9 [facility] Glomerular filtration rate ( GFR) estimation/1.73 sq m using serum, plasma, or whole bOrdered By: Deep Dela Cruz on 09-21-2024 GFR/1.73 sq M.predicted among non-blacks MDRD (S/P/Bld) [Vol rate/Area] 88 mL/min/{1.73_m2} >60 [facility] Comment on above: mL/min/1.73m2 CKD-EP I Creatinine Equation (2020) Hematocrit Auto (Bld) [Volum e fraction]Ordered By: Deep Dela Cruz on 09-21-2024 Hematocrit (Bld) [Volume fraction] 39.8 % 37-47 [facility] Hemoglobin measurementOrdere d By: Deep Dela Cruz on 09-21-2024 Hemoglobin (Bld) [Mass/Vol] 12.4 g/dL 12.0-15.0 [facility] Laboratory - Chemistry and C hemistry - challengeOrdered By: Deep Dela Cruz on 09-21-2024 AST [Catalytic activity/Vol] 26 U/L <32 [facility] MCV (mean corpuscular volume ) determinationOrdered By: Deep Dela Cruz on 09-21-2024 MCV (RBC) [Entitic vol] 91.9 fL 81-99 [facility] Mean corpuscular hemoglobin (MCH) determinationOrdered By: Deep Dela Cruz on 09-21-2024 MCH (RBC) [Entitic mass] 28.6 pg 27.0-32.0 [facility] Mean corpuscular hemoglobin concentration (MCHC) determinationOrdered By: Deep Dela Cruz on 09-21-2024 MCHC (RBC) [Mass/Vol] 31.2 g/dL Low 32-36 [facility] Mean platelet volume determi nationOrdered By: Deep Dela Cruz on 09-21-2024 Platelet mean volume (Bld) [Entitic vol] 10.4 fL 6.2-12.0 [facility] Platelet countOrdered By: Fried on 09-21-2024 Platelets (Bld) [#/Vol] 320 10*3/uL 150-450 [facility] Potassium measurement (mass/ volume)Ordered By: Deep Dela Cruz on 09-21-2024 Potassium (Unsp spec) [Mass/Vol] 4.0 mmol/L 3.3-5.1 [facility] RBC Auto (Bld) [#/Vol]Ordere d By: Deep Dela Cruz on 09-21-2024 RBC (Bld) [#/Vol] 4.33 10*6/uL 4.2-5.4 [facility] Serum creatinine measurement (mass/volume)Ordered By: Deep Dela Cruz on 09-21-2024 Creatinine [Mass/Vol] 0.66 mg/dL Low 0.70-1.20 [facility] Serum globulin measurementOr dered By: Deep Dela Cruz on 09-21-2024 Globulin (S) [Mass/Vol] 3.5 g/dL 2.2-4.2 [facility] Serum glucose measurement (m ass/volume)Ordered By: Deep Dela Cruz on 09-21-2024 Glucose [Mass/Vol] 81 mg/dL 70-99 [facility] Serum or plasma alanine wilson otransferase (ALT) measurementOrdered By: Deep Dela Cruz on 09-21-2024 ALT [Catalytic activity/Vol] 11 U/L <35 [facility] Serum or plasma albumin jessi urement (mass/volume)Ordered By: Deep Dela Cruz on 09-21-2024 Albumin [Mass/Vol] 2.6 g/dL Low 3.4-4.8 [facility] Serum or plasma albumin/glob ulin mass ratioOrdered By: Deep Dela Cruz on 09-21-2024 Albumin/Globulin [Mass ratio] 0.8 {ratio} Low 0.9-2.4 [facility] Serum or plasma alkaline jero sphatase measurementOrdered By: Deep Dela Cruz on 09-21-2024 ALP [Catalytic activity/Vol] 124 U/L High 35-104 [facility] Serum or plasma calcium jessi urement (mass/volume)Ordered By: Deep Dela Cruz on 09-21-2024 Calcium [Mass/Vol] 8.9 mg/dL 7.6-11.0 [facility] Serum or plasma urea nitroge n measurement (mass/volume)Ordered By: Deep Dela Cruz on 09-21-2024 Urea nitrogen [Mass/Vol] 13 mg/dL 4-19 [facility] Sodium levelOrdered By: Deep Dela Cruz on 09-21-2024 Sodium [Moles/Vol] 137 mmol/L 133-145 [facility] Total proteinOrdered By: Janet Dela Cruz on 09-21-2024 Protein [Mass/Vol] 6.1 g/dL 5.9-8.4 [facility] White blood cell (WBC) count Ordered By: Deep Dela Cruz on 09-21-2024 WBC (Bld) [#/Vol] 6.5 10*3/uL 4.4-11.0 [facility] Urine Cultureon 09-15-2024 URC Normal [facility] Comment on above: Performed By: #### M 100.2200, L400.0001 ####[facility] [address] [place], [address] Urinalysis, Completeon 09-12 AMORPHOUS 1+ Normal [facility] Comment on above: Order Comment: STRAI GHT CATHCATHETER SPECIMEN Performed By: #### M 100.2200, L400.0001 ####[facility] [address] [place], [address] RBC 0-5 SEEN Normal 0-5 [facility] Comment on above: Order Comment: STRAI GHT CATHCATHETER SPECIMEN Performed By: #### M 100.2200, L400.0001 ####[facility] [address] [place], [address] TRIPLE PHOS 1+ /hpf Normal [facility] Comment on above: Order Comment: STRAI GHT CATHCATHETER SPECIMEN Performed By: #### M 100.2200, L400.0001 ####[facility] [address] [place], [address] BACTERIA 3+ /hpf Normal None Seen [facility] Comment on above: Order Comment: STRAI GHT CATHCATHETER SPECIMEN Performed By: #### M 100.2200, L400.0001 ####[facility] [address] [place], [address] WBC 10-25 SEEN Normal 0-5 [facility] Comment on above: Order Comment: STRAI GHT CATHCATHETER SPECIMEN Performed By: #### M 100.2200, L400.0001 ####[facility] [address] [place], [address] EPI,SQUAMOUS 0 SEEN Normal 5-10 [facility] Comment on above: Order Comment: STRAI GHT CATHCATHETER SPECIMEN Performed By: #### M 100.2200, L400.0001 ####[facility] [address] [place], [address] Mucus Ql (Urine sed) 0 SEEN Normal [facility] Comment on above: Order Comment: ALONDRA CLINE CATHCATHETER SPECIMEN Performed By: #### M 100.2200, L400.0001 ####[facility] [address] [place], [address] Amorphous sediment detection in urine sediment by light microscopyOrdered By: Deep Dela Cruz on 09-11-2024 Amorphous sediment LM Ql (Urine sed) 1+ [facility] Bilirubin Test strip Ql (U)O rdered By: Deep Dela Cruz on 09-11-2024 Bilirubin Ql (U) Negative Negative [facility] Ketones Test strip Ql (U)Ord ered By: Deep Dela Cruz on 09-11-2024 Ketones Ql (U) Negative Negative [facility] Microscopic analysis of urin e for red blood cells (RBC)Ordered By: Deep Dela Cruz on 09-11-2024 Microscopic analysis of urine for red blood cells (RBC) 0-5 SEEN /hpf 0-5 [facility] Mucus LM Ql (Urine sed)Order ed By: Deep Dela Cruz on 09-11-2024 Mucus Ql (Urine sed) 0 SEEN /hpf [facility] Nitrite Test strip Ql (U)Ord ered By: Deep Dela Cruz on 09-11-2024 Nitrite Ql (U) Positive High Negative [facility] Protein Test strip Ql (U)Ord ered By: Deep Dela Cruz on 09-11-2024 Protein Ql (U) 100 mg/dl High Negative [facility] Squamous epithelial cells de tection in urine sediment by light microscopyOrdered By: Deep Dela Cruz on 09-11-2024 Epithelial cells.squamous LM Ql (Urine sed) 0 SEEN /hpf 5-10 [facility] Triple phosphate crystals de tection in urine sediment by light microscopyOrdered By: Deep Dela Cruz on 09-11-2024 Triple phosphate crystals LM Ql (Urine sed) 1+ /hpf [facility] Urine clarityOrdered By: Janet Dela Cruz on 09-11-2024 Clarity (U) Turbid Clear [facility] Urine color determinationOrd ered By: Deep Dela Cruz on 09-11-2024 Color (U) Yellow Yellow [facility] Urine cultureOrdered By: Janet Dela Cruz on 09-11-2024 Bacteria identified Cx Nom (U) Morganella morganii sp morgani Abnormal [facility] Bacteria identified Cx Nom (U) Klebsiella pneumoniae sp pneum Abnormal [facility] Urine glucose detectionOrder ed By: Deep Dela Cruz on 09-11-2024 Glucose Ql (U) Normal mg/dl Normal [facility] Urine leukocyte esterase det ection by dipstickOrdered By: Deep Dela Cruz on 09-11-2024 Leukocyte esterase Test strip Ql (U) 500 /ul High Negative [facility] Urine pHOrdered By: Deep hayes on 09-11-2024 pH (U) 8.0 [pH] 5.0 - 8.0 [facility] Urine sediment bacteria coun t by microscopy (number/high power field)Ordered By: Deep Dela Cruz on 09-11-2024 Bacteria LM.HPF (Urine sed) [#/Area] 3 /[HPF] None Seen [facility] Urine specific gravity measu rementOrdered By: Deep Dela Cruz on 09-11-2024 Specific gravity (U) [Rel density] 1.010 1.002-1.030 [facility] Urine urobilinogen measureme ntOrdered By: Deep Dela Cruz on 09-11-2024 Urobilinogen Ql (U) Normal mg/dl Normal [facility] White blood cell countOrdere d By: Deep Dela Cruz on 09-11-2024 White blood cell count 10-25 SEEN /hpf 0-5 [facility] Anion gap in Serum or Plasma Ordered By: Deep Dela Cruz on 08-11-2024 Anion gap [Moles/Vol] 10 mmol/L 5-15 [facility] BUN/creatinine ratioOrdered By: Deep Dela Cruz on 08-11-2024 Urea nitrogen/Creatinine [Mass ratio] 29.2 mg/mg High 10- [facility] Basic Metabolic Profile (BMP )on 08-11-2024 BUN/CRE 29.2 RATIO High - [facility] Comment on above: Order Comment: 303.2 Performed By: #### L 501.9956, L500.2500 ####[facility] [address] [place], [address] Calcium [Mass/Vol] 8.6 mg/dL Normal 7.6-11.0 [facility] Comment on above: Order Comment: 303.2 Performed By: #### L 501.9985, L500.2500 ####[facility] [address] [place], [address] Chloride [Moles/Vol] 103 mmol/L Normal 98-108 [facility] Comment on above: Order Comment: 303.2 Performed By: #### L 501.9985, L500.2500 ####[facility] [address] [place], [address] CO2 [Moles/Vol] 24.2 mmol/L Normal 21.0-32.0 [facility] Comment on above: Order Comment: 303.2 Performed By: #### L 501.9985, L500.2500 ####[facility] [address] [place], [address] Creatinine [Mass/Vol] 0.47 mg/dL Low 0.70-1.20 [facility] Comment on above: Order Comment: 303.2 Performed By: #### L 501.9985, L500.2500 ####[facility] [address] [place], [address] GAP 10 Normal 5-15 [facility] Comment on above: Order Comment: 303.2 Performed By: #### L 501.9985, L500.2500 ####[facility] [address] [place], [address] GFR/1.73 sq M.predicted among non-blacks MDRD (S/P/Bld) [Vol rate/Area] 95 mL/min/{1.73_m2} Normal >60 [facility] Comment on above: Order Comment: 303.2 Result Comment: mL/m in/1.73m2 CKD-EPI Creatinine Equation (2020) Performed By: #### L 501.9985, L500.2500 ####[facility] [address] [place], [address] Glucose [Mass/Vol] 77 mg/dL Normal 70-99 [facility] Comment on above: Order Comment: 303.2 Performed By: #### L 501.9985, L500.2500 ####[facility] [address] [place], [address] Potassium [Moles/Vol] 3.7 mmol/L Normal 3.3-5.1 [facility] Comment on above: Order Comment: 303.2 Performed By: #### L 501.9985, L500.2500 ####[facility] [address] [place], [address] Sodium [Moles/Vol] 137 mmol/L Normal 133-145 [facility] Comment on above: Order Comment: 303.2 Performed By: #### L 501.9985, L500.2500 ####[facility] [address] [place], [address] Urea nitrogen [Mass/Vol] 14 mg/dL Normal 4-19 [facility] Comment on above: Order Comment: 303.2 Performed By: #### L 501.9985, L500.2500 ####[facility] [address] [place], [address] Carbon dioxide, total [Moles /volume] in Central venous bloodOrdered By: Deep Dela Cruz on 08-11-2024 CO2 [Moles/Vol] 24.2 mmol/L 21.0-32.0 [facility] Chloride assayOrdered By: Fried on 08-11-2024 Chloride [Moles/Vol] 103 mmol/L 98-108 [facility] GFR/1.73 sq M.predicted radha g non-blacks MDRD (S/P/Bld) [Vol rate/Area]Ordered By: Deep Dela Cruz on 08-11-2024 Estimated GFR (MDRD) Non-Af Amer 95 >60 [facility] Comment on above: mL/min/1.73m2 CKD-EP I Creatinine Equation (2020) Glomerular filtration rate ( GFR) estimation/1.73 sq m using serum, plasma, or whole bOrdered By: Deep Dela Cruz on 08-11-2024 GFR/1.73 sq M.predicted among non-blacks MDRD (S/P/Bld) [Vol rate/Area] 95 mL/min/{1.73_m2} >60 [facility] Comment on above: mL/min/1.73m2 CKD-EP I Creatinine Equation (2020) Hemoglobin A1con 08-11-2024 HbA1c (Bld) [Mass fraction] 6.6 % Normal <=5.6 [facility] Comment on above: Order Comment: 303.2 Performed By: #### L 501.9985, L500.2500 ####[facility] [address] [place], [address] Hemoglobin A1c percentageOrd ered By: Deep Dela Cruz on 08-11-2024 HbA1c (Bld) [Mass fraction] 6.6 % >5.7 [facility] Potassium (Unsp spec) [Mass/ Vol]Ordered By: Deep Dela Cruz on 08-11-2024 Potassium [Moles/Vol] 3.7 mmol/L 3.3-5.1 [facility] Potassium measurement (mass/ volume)Ordered By: Deep Dela Cruz on 08-11-2024 Potassium (Unsp spec) [Mass/Vol] 3.7 mmol/L 3.3-5.1 [facility] Serum creatinine measurement (mass/volume)Ordered By: Deep Dela Cruz on 08-11-2024 Creatinine [Mass/Vol] 0.47 mg/dL Low 0.70-1.20 [facility] Serum glucose measurement (m ass/volume)Ordered By: Deep Dela Cruz on 08-11-2024 Glucose [Mass/Vol] 77 mg/dL 70-99 [facility] Serum or plasma calcium jessi urement (mass/volume)Ordered By: Deep Dela Cruz on 08-11-2024 Calcium [Mass/Vol] 8.6 mg/dL 7.6-11.0 [facility] Serum or plasma urea nitroge n measurement (mass/volume)Ordered By: Deep Dela Cruz on 08-11-2024 Urea nitrogen [Mass/Vol] 14 mg/dL 4-19 [facility] Sodium levelOrdered By: Deep Dela Cruz on 08-11-2024 Sodium [Moles/Vol] 137 mmol/L 133-145 [facility] L503.7505on 08-08-2024 Natriuretic peptide B (Bld) [Mass/Vol] 1235 pg/mL Normal <=1800 [facility] Comment on above: Order Comment: 303.2 Result Comment: Hear t Failure Unlikely: < 300 pg/mLHeart Failure Likely< 50 Years: > 450 pg/mL50-75 Years: > 900 pg/mL>75 Years: > 1800 pg/mL Performed By: #### L 503.7505 ####[facility] [address] [place], [address] Laboratory - Chemistry and C hemistry - challengeOrdered By: Deep Dela Cruz on 08-08-2024 Natriuretic peptide B (Bld) [Mass/Vol] 1235 pg/mL <1800 [facility] Comment on above: Heart Failure Unlike ly: < 300 pg/mLHeart Failure Likely< 50 Years: > 450 pg/mL50-75 Years: > 900 pg/mL>75 Years: > 1800 pg/mL CNOVon 08-03-2024 CNOV Normal [facility] CT HEAD WO IV CONTRASTon CT HEAD WO IV CONTRAST Patient Name: [facility] LA [facility] 1940 [id number] Exam Date/Time: 08/02/2024 12:03 Procedure: CT HEAD [...] nontraumatic intracranial hemorrhage. Pt poor historian Normal [facility] CT Head WO contraston 2024 1. 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 2. No definite evidence of acute infarction, mass lesion, nor hemorrhage with moderate intracranial vascular calcification. Report Dictated on Electronically Signed By: Abhinav Loyola MD Electronically Signed Date/Time: 08/02/2024 6:14 PM EST [facility] Patient Name: [facility] 1940 [id number] Exam Date/Time: 08/02/2024 12:03 Procedure: CT HEAD [...] unremarkable with cerumen right external auditory canal. [facility] Abhinav Loyola MD - 08/02/2024 Patient Name: [facility]EN[facility] 1940 [id number] Exam Date/Time: 08/02/2024 12:03 Procedure: CT HEAD [...] Date/Time: 08/02/2024 6:14 PM EST [facility] Radiology Study observation (narrative) [facility] He alth CT Head WO contrastOrdered B y: Abhinav Loyola on 08-02-2024 [facility] BasharJobs Work Phone: CNPNon 08-01-2024 CNPN Normal [facility] Comprehensive Metabolic Prof ilon 07-27-2024 Chloride [Moles/Vol] 102 mmol/L Normal 98-107 [facility] Comment on above: Performed By: #### L 500.4050, L100.0500, L501.9985 ####[facility] [address] [place], [address] CO2 [Moles/Vol] 20.6 mmol/L Low 21.0-32.0 [facility] Comment on above: Performed By: #### L 500.4050, L100.0500, L501.9985 ####[facility] [address] [place], [address] GAP 13 Normal 5-15 [facility] Comment on above: Performed By: #### L 500.4050, L100.0500, L501.9985 ####[facility] [address] [place], [address] Potassium [Moles/Vol] 4.5 mmol/L Normal 3.5-5.1 [facility] Comment on above: Performed By: #### L 500.4050, L100.0500, L501.9985 ####[facility] [address] [place], [address] Calcium [Mass/Vol] 8.5 mg/dL Normal 7.6-11.0 [facility] Comment on above: Performed By: #### L 500.4050, L100.0500, L501.9985 ####[facility] [address] [place], [address] EST GFR - AA TNP Normal >60 [facility] Comment on above: Performed By: #### L 500.4050, L100.0500, L501.9985 ####[facility] [address] [place], [address] Sodium [Moles/Vol] 136 mmol/L Normal 136-145 [facility] Comment on above: Performed By: #### L 500.4050, L100.0500, L501.9985 ####[facility] [address] [place], [address] BUN/creatinine ratioOrdered By: Deep Dela Cruz on 07-26-2024 Urea nitrogen/Creatinine [Mass ratio] 33.7 mg/mg High 10-20 [facility] Comment on above: Previous reported re sult: 32.5 RATIOEdited by: ERWIN on 07/27/24:1224 AMENDED REPORT 07/27/24 1224 BUN/CRE previously reported as: 32.5 H RATIO Bilirubin, totalOrdered By: Deep Dela Cruz on 07-26-2024 Bilirubin [Mass/Vol] mg/dL 0.00-1.30 [facility] Comment on above: Previous reported re sult: 0.18 mg/dLEdited by: YOBANIS on 07/27/24:1224 AMENDED REPORT 07/27/24 1224 T BILI previously reported as: 0.18 mg/dL CBC-Complete Blood Cnt No Di ffon 07-26-2024 Erythrocyte distribution width (RBC) [Ratio] 16.2 % High 11.6-14.6 [facility] Comment on above: Performed By: #### L 500.4050, L100.0500, L501.9985 ####[facility] [address] [place], [address] Hematocrit (Bld) [Volume fraction] 36.6 % Low 37-47 [facility] Comment on above: Performed By: #### L 500.4050, L100.0500, L501.9985 ####[facility] [address] [place], [address] Hemoglobin (Bld) [Mass/Vol] 11.2 g/dL Low 12.0-15.0 [facility] Comment on above: Performed By: #### L 500.4050, L100.0500, L501.9985 ####[facility] [address] [place], [address] MCH (RBC) [Entitic mass] 27.7 pg Normal 27.0-32.0 [facility] Comment on above: Performed By: #### L 500.4050, L100.0500, L501.9985 ####[facility] [address] [place], [address] MCHC (RBC) [Mass/Vol] 30.6 g/dL Low 32-36 [facility] Comment on above: Performed By: #### L 500.4050, L100.0500, L501.9985 ####[facility] [address] [place], [address] MCV (RBC) [Entitic vol] 90.4 fL Normal 81-99 [facility] Comment on above: Performed By: #### L 500.4050, L100.0500, L501.9985 ####[facility] [address] [place], [address] Platelet mean volume (Bld) [Entitic vol] 11.1 fL Normal 6.2-12.0 [facility] Comment on above: Performed By: #### L 500.4050, L100.0500, L501.9985 ####[facility] [address] [place], [address] Platelets (Bld) [#/Vol] 205 10*3/uL Normal 150-450 [facility] Comment on above: Performed By: #### L 500.4050, L100.0500, L501.9985 ####[facility] [address] [place], [address] RBC (Bld) [#/Vol] 4.05 10*6/uL Low 4.2-5.4 [facility] Comment on above: Performed By: #### L 500.4050, L100.0500, L501.9985 ####[facility] [address] [place], [address] RDW SD 54.1 fl High 35.1-43.9 [facility] Comment on above: Performed By: #### L 500.4050, L100.0500, L501.9985 ####[facility] [address] [place], [place], [address] WBC (Bld) [#/Vol] 5.4 10*3/uL Normal 4.4-11.0 [facility] Comment on above: Performed By: #### L 500.4050, L100.0500, L501.9985 ####[facility] [address] [place], [address] Creatinine [Moles/Vol]Ordere d By: Deep Dela Cruz on 07-26-2024 Creatinine [Mass/Vol] 0.5 mg/dL Low 0.6-1.0 [facility] Estimated glomerular filtrat ion rate (GFR) AmericanOrdered By: Deep Dela Cruz on 07-26-2024 Estimated GFR (MDRD) Amer TNP [facility] Comment on above: Test not performed GFR/1.73 sq M.predicted radha g non-blacks MDRD (S/P/Bld) [Vol rate/Area]Ordered By: Deep Dela Cruz on 07-26-2024 Estimated GFR (MDRD) Non-Af Amer 95 >60 [facility] Comment on above: mL/min/1.73m2 CKD-EP I Creatinine Equation (2020) Glomerular filtration rate ( GFR) estimation/1.73 sq m using serum, plasma, or whole bOrdered By: Deep Dela Cruz on 07-26-2024 GFR/1.73 sq M.predicted among non-blacks MDRD (S/P/Bld) [Vol rate/Area] 95 mL/min/{1.73_m2} >60 [facility] Comment on above: mL/min/1.73m2 CKD-EP I Creatinine Equation (2020) Hemoglobin A1con 07-26-2024 HbA1c (Bld) [Mass fraction] 6.4 % Normal <=5.6 [facility] Comment on above: Order Comment: 303.2 Performed By: #### L 500.4050, L100.0500, L501.9985 ####[facility] [address] [place], [address] Laboratory - Chemistry and C hemistry - challengeOrdered By: Deep Dela Cruz on 07-26-2024 AST [Catalytic activity/Vol] 29 U/L <32 [facility] Potassium measurementOrdered By: Deep Dela Cruz on 07-26-2024 Potassium [Moles/Vol] 4.5 mmol/L 3.5-5.1 [facility] Serum anion gap measurementO rdered By: Deep Dela Cruz on 07-26-2024 Anion gap [Moles/Vol] 13 mmol/L 5-15 [facility] Serum globulin measurementOr dered By: Deep Dela Cruz on 07-26-2024 Globulin (S) [Mass/Vol] 3.5 g/dL 2.2-4.2 [facility] Comment on above: Previous reported re sult: 3.2 g/dLEdited by: ERWIN on 07/27/24:1224 AMENDED REPORT 07/27/24 1224 GLOB previously reported as: 3.2 g/dL Serum glucose measurement (m ass/volume)Ordered By: Deep Dela Cruz on 07-26-2024 Glucose [Mass/Vol] 68 mg/dL Low 70-99 [facility] Comment on above: Previous reported re sult: 74 mg/dLEdited by: ERWIN on 07/27/24:1224 AMENDED REPORT 07/27/24 1224 GLU previously reported as: 74 mg/dL Serum or plasma alanine wilson otransferase (ALT) measurementOrdered By: Deep Dela Cruz on 07-26-2024 ALT [Catalytic activity/Vol] 9 U/L <35 [facility] Comment on above: Previous reported re sult: 10 U/LEdited by: ERWIN on 07/27/24:1224 AMENDED REPORT 07/27/24 1224 ALT previously reported as: 10 U/L Serum or plasma albumin jessi urement (mass/volume)Ordered By: Deep Dela Cruz on 07-26-2024 Albumin [Mass/Vol] 2.3 g/dL Low 3.4-4.8 [facility] Serum or plasma albumin/glob ulin mass ratioOrdered By: Deep Dela Cruz on 07-26-2024 Albumin/Globulin [Mass ratio] 0.7 {ratio} Low 0.9-2.4 [facility] Serum or plasma alkaline jero sphatase measurementOrdered By: Deep Dela Cruz on 07-26-2024 ALP [Catalytic activity/Vol] 156 U/L High 35-104 [facility] Comment on above: Previous reported re sult: 153 U/LEdited by: ERWIN on 07/27/24:1224 AMENDED REPORT 07/27/24 1224 ALK P previously reported as: 153 H U/L Serum or plasma calcium jessi urement (mass/volume)Ordered By: Deep Dela Cruz on 07-26-2024 Calcium [Mass/Vol] 8.5 mg/dL 7.6-11.0 [facility] Serum or plasma carbon dioxi de measurement (moles/volume)Ordered By: Deep Dela Cruz on 07-26-2024 CO2 [Moles/Vol] 20.6 mmol/L Low 21.0-32.0 [facility] Serum or plasma chloride michelle surement (moles/volume)Ordered By: Deep Dela Cruz on 07-26-2024 Chloride [Moles/Vol] 102 mmol/L 98-107 [facility] Serum or plasma creatinine m easurement (moles/volume)Ordered By: Deep Dela Cruz on 07-26-2024 Creatinine [Moles/Vol] 0.5 mg/dL Low 0.6-1.0 [facility] Serum or plasma urea nitroge n measurement (mass/volume)Ordered By: Deep Dela Cruz on 07-26-2024 Urea nitrogen [Mass/Vol] 17 mg/dL 4-19 [facility] Comment on above: Previous reported re sult: 16 mg/dLEdited by: ERWIN on 07/27/24:1224 AMENDED REPORT 07/27/24 1224 BUN previously reported as: 16 mg/dL Sodium levelOrdered By: Deep Dela Cruz on 07-26-2024 Sodium [Moles/Vol] 136 mmol/L 136-145 [facility] Total proteinOrdered By: Janet Dela Cruz on 07-26-2024 Protein [Mass/Vol] 5.8 g/dL Low 5.9-8.4 [facility] Comment on above: Previous reported re sult: 5.5 g/dLEdited by: ERWIN on 07/27/24:1224 AMENDED REPORT 07/27/24 1224 T PROT previously reported as: 5.5 L g/dL Erythrocyte distribution wid th (RBC) [Ratio]Ordered By: Deep Dela Cruz on 07-25-2024 Erythrocyte distribution width (RBC) [Entitic vol] 54.1 fL High 35.1-43.9 [facility] Erythrocyte distribution wid th ratioOrdered By: Deep Dela Cruz on 07-25-2024 Erythrocyte distribution width (RBC) [Ratio] 16.2 % High 11.6-14.6 [facility] Erythrocyte distribution wid th standard deviationOrdered By: Deep Dela Cruz on 07-25-2024 Erythrocyte distribution width (RBC) [Ratio] 54.1 fl High 35.1-43.9 [facility] Hematocrit Auto (Bld) [Volum e fraction]Ordered By: Deep Dela Cruz on 07-25-2024 Hematocrit (Bld) [Volume fraction] 36.6 % Low 37-47 [facility] Hemoglobin A1c percentageOrd ered By: Deep Dela Cruz on 07-25-2024 HbA1c (Bld) [Mass fraction] 6.4 % >5.7 [facility] Hemoglobin measurementOrdere d By: Deep Dela Cruz on 07-25-2024 Hemoglobin (Bld) [Mass/Vol] 11.2 g/dL Low 12.0-15.0 [facility] MCV (mean corpuscular volume ) determinationOrdered By: Deep Dela Cruz on 07-25-2024 MCV (RBC) [Entitic vol] 90.4 fL 81-99 [facility] Mean corpuscular hemoglobin (MCH) determinationOrdered By: Deep Dela Cruz on 07-25-2024 MCH (RBC) [Entitic mass] 27.7 pg 27.0-32.0 [facility] Mean corpuscular hemoglobin concentration (MCHC) determinationOrdered By: Deep Dela Cruz on 07-25-2024 MCHC (RBC) [Mass/Vol] 30.6 g/dL Low 32-36 [facility] Mean platelet volume determi nationOrdered By: Deep Dela Cruz on 07-25-2024 Platelet mean volume (Bld) [Entitic vol] 11.1 fL 6.2-12.0 [facility] Platelet countOrdered By: Fried on 07-25-2024 Platelets (Bld) [#/Vol] 205 10*3/uL 150-450 [facility] RBC Auto (Bld) [#/Vol]Ordere d By: Deep Dela Cruz on 07-25-2024 RBC (Bld) [#/Vol] 4.05 10*6/uL Low 4.2-5.4 [facility] White blood cell (WBC) count Ordered By: Deep Dela Cruz on 07-25-2024 WBC (Bld) [#/Vol] 5.4 10*3/uL 4.4-11.0 [facility] Basic Metabolic Profile (BMP )on 07-10-2024 BUN/CRE 43.1 RATIO High 10-20 [facility] Comment on above: Order Comment: 303.2 Performed By: #### L 100.0500, L500.2500 ####[facility] [address] [place], [address] CA,Total 8.6 mg/dL Normal 8.5-10.1 [facility] Comment on above: Order Comment: 303.2 Performed By: #### L 100.0500, L500.2500 ####[facility] [address] [place], [address] Chloride [Moles/Vol] 103 mmol/L Normal 98-107 [facility] Comment on above: Order Comment: 303.2 Performed By: #### L 100.0500, L500.2500 ####[facility] [address] [place], [address] CO2 [Moles/Vol] 28.0 mmol/L Normal 21.0-32.0 [facility] Comment on above: Order Comment: 303.2 Performed By: #### L 100.0500, L500.2500 ####[facility] [address] [place], [address] Creatinine [Mass/Vol] 0.44 mg/dL Low 0.55-1.02 [facility] Comment on above: Order Comment: 303.2 Result Comment: The validity of the calculated GFR GFRAA in patients over70 years has not been determined. Clinical correlation isessential. Performed By: #### L 100.0500, L500.2500 ####[facility] [address] [place], [address] EST GFR - AA 175 mL/min Normal >60 [facility] Comment on above: Order Comment: 303.2 Result Comment: Afri can Tristanian GFR Calc Performed By: #### L 100.0500, L500.2500 ####[facility] [address] [place], [address] GAP 6 Normal 5-15 [facility] Comment on above: Order Comment: 303.2 Performed By: #### L 100.0500, L500.2500 ####[facility] [address] [place], [address] GFR/1.73 sq M.predicted among non-blacks MDRD (S/P/Bld) [Vol rate/Area] 145 mL/min/{1.73_m2} Normal >60 [facility] Comment on above: Order Comment: 303.2 Result Comment: Non- GFR Calc Performed By: #### L 100.0500, L500.2500 ####[facility] [address] [place], [address] Glucose [Mass/Vol] 103 mg/dL Normal 74-106 [facility] Comment on above: Order Comment: 303.2 Result Comment: Fast ing Glucose result from 100 to 125 mg/dLsuggests IMPAIRED HOMEOSTASIS per A.D.A. criteria. Performed By: #### L 100.0500, L500.2500 ####[facility] [address] [place], [address] Potassium [Moles/Vol] 3.7 mmol/L Normal 3.5-5.1 [facility] Comment on above: Order Comment: 303.2 Performed By: #### L 100.0500, L500.2500 ####[facility] [address] [place], [address] Sodium [Moles/Vol] 137 mmol/L Normal 136-145 [facility] Comment on above: Order Comment: 303.2 Performed By: #### L 100.0500, L500.2500 ####[facility] [address] [place], [address] Urea nitrogen [Mass/Vol] 19 mg/dL High 7-18 [facility] Comment on above: Order Comment: 303.2 Performed By: #### L 100.0500, L500.2500 ####[facility] [address] [place], [address] Blood urea nitrogen (BUN)/cr eatinine ratioOrdered By: Deep Dela Cruz on 07-10-2024 Urea nitrogen/Creatinine [Mass ratio] 43.1 mg/mg High 10-20 [facility] CBC-Complete Blood Cnt No Di ffon 07-10-2024 Erythrocyte distribution width (RBC) [Ratio] 14.9 % High 11.6-14.6 [facility] Comment on above: Order Comment: 303.2 Performed By: #### L 100.0500, L500.2500 ####[facility] [address] [place], [address] Hematocrit (Bld) [Volume fraction] 31.3 % Low 37-47 [facility] Comment on above: Order Comment: 303.2 Performed By: #### L 100.0500, L500.2500 ####[facility] [address] [place], [address] Hemoglobin (Bld) [Mass/Vol] 10.0 g/dL Low 12.0-15.0 [facility] Comment on above: Order Comment: 303.2 Performed By: #### L 100.0500, L500.2500 ####[facility] [address] [place], [address] MCH (RBC) [Entitic mass] 28.7 pg Normal 27.0-32.0 [facility] Comment on above: Order Comment: 303.2 Performed By: #### L 100.0500, L500.2500 ####[facility] [address] [place], [address] MCHC (RBC) [Mass/Vol] 31.9 g/dL Low 32-36 [facility] Comment on above: Order Comment: 303.2 Performed By: #### L 100.0500, L500.2500 ####[facility] [address] [place], [address] MCV (RBC) [Entitic vol] 89.9 fL Normal 81-99 [facility] Comment on above: Order Comment: 303.2 Performed By: #### L 100.0500, L500.2500 ####[facility] [address] [place], [address] Platelet mean volume (Bld) [Entitic vol] 10.7 fL Normal 6.2-12.0 [facility] Comment on above: Order Comment: 303.2 Performed By: #### L 100.0500, L500.2500 ####[facility] [address] [place], [address] Platelets (Bld) [#/Vol] 397 10*3/uL Normal 150-450 [facility] Comment on above: Order Comment: 303.2 Performed By: #### L 100.0500, L500.2500 ####[facility] [address] [place], [address] RBC (Bld) [#/Vol] 3.48 10*6/uL Low 4.2-5.4 [facility] Comment on above: Order Comment: 303.2 Performed By: #### L 100.0500, L500.2500 ####[facility] [address] [place], [address] RDW SD 49.5 fl High 35.1-43.9 [facility] Comment on above: Order Comment: 303.2 Performed By: #### L 100.0500, L500.2500 ####[facility] [address] [place], [address] WBC (Bld) [#/Vol] 18.3 10*3/uL High 4.4-11.0 [facility] Comment on above: Order Comment: 303.2 Performed By: #### L 100.0500, L500.2500 ####[facility] [address] [place], [address] Carbon dioxide measurementOr dered By: Deep Dela Cruz on 07-10-2024 CO2 [Moles/Vol] 28.0 mmol/L 21.0-32.0 [facility] Chloride measurementOrdered By: Deep Dela Cruz on 07-10-2024 Chloride [Moles/Vol] 103 mmol/L 98-107 [facility] Erythrocyte distribution wid th (RBC) [Ratio]Ordered By: Deep Dela Cruz on 07-10-2024 Erythrocyte distribution width (RBC) [Entitic vol] 49.5 fL High 35.1-43.9 [facility] Erythrocyte distribution wid th ratioOrdered By: Deep Dela Cruz on 07-10-2024 Erythrocyte distribution width (RBC) [Ratio] 14.9 % High 11.6-14.6 [facility] Erythrocyte distribution wid th standard deviationOrdered By: Deep Dela Cruz on 07-10-2024 Erythrocyte distribution width (RBC) [Ratio] 49.5 fl High 35.1-43.9 [facility] Estimated glomerular filtrat ion rate (GFR) AmericanOrdered By: Deep Dela Cruz on 07-10-2024 Estimated GFR (MDRD) Amer 175 mL/min >60 [facility] Comment on above: GFR Calc Glomerular filtration rate ( GFR) estimationOrdered By: Deep Dela Curz on 07-10-2024 Estimated GFR (MDRD) Non-Af Amer 145 mL/min >60 [facility] Comment on above: Non- GFR Calc GFR/1.73 sq M.predicted among non-blacks MDRD (S/P/Bld) [Vol rate/Area] 145 mL/min/{1.73_m2} >60 [facility] Comment on above: Non- GFR Calc Glucose measurementOrdered B y: Deep Dela Cruz on 07-10-2024 Glucose [Mass/Vol] 103 mg/dL 74-106 [facility] Comment on above: Fasting Glucose resu lt from 100 to 125 mg/dL suggests IMPAIRED HOMEOSTASIS per A.D.A. criteria. Hematocrit Auto (Bld) [Volum e fraction]Ordered By: Deep Dela Cruz on 07-10-2024 Hematocrit (Bld) [Volume fraction] 31.3 % Low 37-47 [facility] Hemoglobin measurementOrdere d By: Deep Dela Cruz on 07-10-2024 Hemoglobin (Bld) [Mass/Vol] 10.0 g/dL Low 12.0-15.0 [facility] MCV (mean corpuscular volume ) determinationOrdered By: Deep Dela Cruz on 07-10-2024 MCV (RBC) [Entitic vol] 89.9 fL 81-99 [facility] Mean corpuscular hemoglobin (MCH) determinationOrdered By: Deep Dela Cruz on 07-10-2024 MCH (RBC) [Entitic mass] 28.7 pg 27.0-32.0 [facility] Mean corpuscular hemoglobin concentration (MCHC) determinationOrdered By: Deep Dela Cruz on 07-10-2024 MCHC (RBC) [Mass/Vol] 31.9 g/dL Low 32-36 [facility] Mean platelet volume determi nationOrdered By: Deep Dela Cruz on 07-10-2024 Platelet mean volume (Bld) [Entitic vol] 10.7 fL 6.2-12.0 [facility] Platelet countOrdered By: Fried on 07-10-2024 Platelets (Bld) [#/Vol] 397 10*3/uL 150-450 [facility] Potassium measurementOrdered By: Deep Dela Cruz on 07-10-2024 Potassium [Moles/Vol] 3.7 mmol/L 3.5-5.1 [facility] RBC Auto (Bld) [#/Vol]Ordere d By: Deep Dela Cruz on 07-10-2024 RBC (Bld) [#/Vol] 3.48 10*6/uL Low 4.2-5.4 [facility] Serum anion gap measurementO rdered By: Deep Dela Cruz on 07-10-2024 Anion gap [Moles/Vol] 6 mmol/L 5-15 [facility] Serum or plasma calcium jessi urement (mass/volume)Ordered By: Deep Dela Cruz on 07-10-2024 Calcium [Mass/Vol] 8.6 mg/dL 8.5-10.1 [facility] Serum or plasma creatinine m easurement (mass/volume)Ordered By: Deep Dela Cruz on 07-10-2024 Creatinine [Mass/Vol] 0.44 mg/dL Low 0.55-1.02 [facility] Comment on above: The validity of the calculated GFR & GFRAA in patients over 70 years has not been determined. Clinical correlation is essential. Serum or plasma urea nitroge n measurement (mass/volume)Ordered By: Deep Dela Cruz on 07-10-2024 Urea nitrogen [Mass/Vol] 19 mg/dL High 7-18 [facility] Sodium levelOrdered By: Deep Dela Cruz on 07-10-2024 Sodium [Moles/Vol] 137 mmol/L 136-145 [facility] White blood cell (WBC) count Ordered By: Deep Dela Cruz on 07-10-2024 WBC (Bld) [#/Vol] 18.3 10*3/uL High 4.4-11.0 [facility] Absolute lymphocyte countOrd ered By: Deep Dela Cruz on 06-20-2024 Lymphocytes Auto (Unsp spec) [#/Vol] 1.17 10*3/uL 0.83-4.51 [facility] Absolute neutrophil countOrd ered By: Deep Dela Cruz on 06-20-2024 Neutrophils (Bld) [#/Vol] 5.5 10*3/uL 2.0-7.7 [facility] Albumin to globulin ratioOrd ered By: Deep Dela Cruz on 06-20-2024 Albumin/Globulin [Mass ratio] 0.5 {ratio} Low 0.9-2.4 [facility] Automated lymphocyte count a s percentage of total leukocytesOrdered By: Deep Dela Cruz on 06-20-2024 Lymphocytes/100 WBC Auto (Unsp spec) 14.7 % Low 19-41 [facility] Basophil percentageOrdered B y: Deep Dela Cruz on 06-20-2024 Basophils/100 WBC (Bld) 1.1 % High 0-1 [facility] Bilirubin, totalOrdered By: Deep Dela Cruz on 06-20-2024 Bilirubin [Mass/Vol] 0.40 mg/dL 0.20-1.00 [facility] Comment on above: For patients on eltr ombopag therapy, use of Dimension [place] TBIL is not recommended. Blood urea nitrogen (BUN)/cr eatinine ratioOrdered By: Deep Dela Cruz on 06-20-2024 Urea nitrogen/Creatinine [Mass ratio] 30.9 mg/mg High 10-20 [facility] CBC W/Diff, Automatedon 06-01 Absolute Lymph 1.17 X10 3/uL Normal 0.83-4.51 [facility] Comment on above: Order Comment: 303.2 Performed By: #### L 500.4050, L100.0100 ####[facility] [address] [place], [address] Absolute Neut 5.5 X10 3/uL Normal 2.0-7.7 [facility] Comment on above: Order Comment: 303.2 Performed By: #### L 500.4050, L100.0100 ####[facility] [address] [place], [address] Basophils/100 WBC (Bld) 1.1 % High 0-1 [facility] Comment on above: Order Comment: 303.2 Performed By: #### L 500.4050, L100.0100 ####[facility] [address] [place], [address] Eosinophils/100 WBC (Bld) 3.0 % Normal 0-5 [facility] Comment on above: Order Comment: 303.2 Performed By: #### L 500.4050, L100.0100 ####[facility] [address] [place], [address] Erythrocyte distribution width (RBC) [Ratio] 15.1 % High 11.6-14.6 [facility] Comment on above: Order Comment: 303.2 Performed By: #### L 500.4050, L100.0100 ####[facility] [address] [place], [address] Hematocrit (Bld) [Volume fraction] 33.9 % Low 37-47 [facility] Comment on above: Order Comment: 303.2 Performed By: #### L 500.4050, L100.0100 ####[facility] [address] [place], [address] Hemoglobin (Bld) [Mass/Vol] 10.5 g/dL Low 12.0-15.0 [facility] Comment on above: Order Comment: 303.2 Performed By: #### L 500.4050, L100.0100 ####[facility] [address] [place], [address] IG% 0.500 Normal 0.0-0.9 [facility] Comment on above: Order Comment: 303.2 Result Comment: IG% - Immature Granulocytes (promyelocytes, myelocytes andmetamyelocytes) > 1% indicates that a LEFT SHIFT is Present. Performed By: #### L 500.4050, L100.0100 ####[facility] [address] [place], [address] Lymphocytes/100 WBC (Bld) 14.7 % Low 19-41 [facility] Comment on above: Order Comment: 303.2 Performed By: #### L 500.4050, L100.0100 ####[facility] [address] [place], [address] MCH (RBC) [Entitic mass] 28.8 pg Normal 27.0-32.0 [facility] Comment on above: Order Comment: 303.2 Performed By: #### L 500.4050, L100.0100 ####[facility] [address] [place], [address] MCHC (RBC) [Mass/Vol] 31.0 g/dL Low 32-36 [facility] Comment on above: Order Comment: 303.2 Performed By: #### L 500.4050, L100.0100 ####[facility] [address] [place], [address] MCV (RBC) [Entitic vol] 93.1 fL Normal 81-99 [facility] Comment on above: Order Comment: 303.2 Performed By: #### L 500.4050, L100.0100 ####[facility] [address] [place], [address] Monocytes/100 WBC (Bld) 11.2 % High 0-10 [facility] Comment on above: Order Comment: 303.2 Performed By: #### L 500.4050, L100.0100 ####[facility] [address] [place], [address] Neutrophils/100 WBC (Bld) 69.5 % Normal 47-70 [facility] Comment on above: Order Comment: 303.2 Performed By: #### L 500.4050, L100.0100 ####[facility] [address] [place], [address] Nucleated RBC (Bld) [#/Vol] 0 10*3/uL Normal 0-5 [facility] Comment on above: Order Comment: 303.2 Performed By: #### L 500.4050, L100.0100 ####[facility] [address] [place], [address] Platelet mean volume (Bld) [Entitic vol] 10.3 fL Normal 6.2-12.0 [facility] Comment on above: Order Comment: 303.2 Performed By: #### L 500.4050, L100.0100 ####[facility] [address] [place], [address] Platelets (Bld) [#/Vol] 299 10*3/uL Normal 150-450 [facility] Comment on above: Order Comment: 303.2 Performed By: #### L 500.4050, L100.0100 ####[facility] [address] [place], [address] RBC (Bld) [#/Vol] 3.64 10*6/uL Low 4.2-5.4 [facility] Comment on above: Order Comment: 303.2 Performed By: #### L 500.4050, L100.0100 ####[facility] [address] [place], [address] RDW SD 51.5 fl High 35.1-43.9 [facility] Comment on above: Order Comment: 303.2 Performed By: #### L 500.4050, L100.0100 ####[facility] [address] [place], [address] WBC (Bld) [#/Vol] 8.0 10*3/uL Normal 4.4-11.0 [facility] Comment on above: Order Comment: 303.2 Performed By: #### L 500.4050, L100.0100 ####[facility] [address] [place], [address] CDIFF (PCR)on 06-20-2024 CDIFF Pending [id number] NAP1-B1 Presumptive Negative *for epidemiolologic???use C. Diff PCR Negative- No toxigenic C. Diff Detected Normal [facility] Comment on above: Performed By: #### M 100.6796 ####[facility] [address] [place], [address] Carbon dioxide measurementOr dered By: Deep Dela Cruz on 06-20-2024 CO2 [Moles/Vol] 24.0 mmol/L 21.0-32.0 [facility] Chloride measurementOrdered By: Deep Dela Cruz on 06-20-2024 Chloride [Moles/Vol] 108 mmol/L High 98-107 [facility] Comprehensive Metabolic Prof ilon 06-20-2024 Albumin [Mass/Vol] 1.9 g/dL Low 3.2-5.0 [facility] Comment on above: Order Comment: 303.2 Performed By: #### L 500.4050, L100.0100 ####[facility] [address] [place], [address] Albumin/Globulin [Mass ratio] 0.5 {ratio} Low 0.9-2.4 [facility] Comment on above: Order Comment: 303.2 Performed By: #### L 500.4050, L100.0100 ####[facility] [address] [place], [address] ALK P 148 U/L High 45-117 [facility] Comment on above: Order Comment: 303.2 Performed By: #### L 500.4050, L100.0100 ####[facility] [address] [place], [address] ALT [Catalytic activity/Vol] 10 U/L Low 13-56 [facility] Comment on above: Order Comment: 303.2 Performed By: #### L 500.4050, L100.0100 ####[facility] [address] [place], [address] AST [Catalytic activity/Vol] 17 U/L Normal 15-37 [facility] Comment on above: Order Comment: 303.2 Performed By: #### L 500.4050, L100.0100 ####[facility] [address] [place], [address] Bilirubin [Mass/Vol] 0.40 mg/dL Normal 0.20-1.00 [facility] Comment on above: Order Comment: 303.2 Result Comment: For patients on eltrombopag therapy, use of Dimension [place] TBIL is not recommended. Performed By: #### L 500.4050, L100.0100 ####[facility] [address] [place], [address] BUN/CRE 30.9 RATIO High 10-20 [facility] Comment on above: Order Comment: 303.2 Performed By: #### L 500.4050, L100.0100 ####[facility] [address] [place], [address] CA,Total 8.7 mg/dL Normal 8.5-10.1 [facility] Comment on above: Order Comment: 303.2 Performed By: #### L 500.4050, L100.0100 ####[facility] [address] [place], [address] Chloride [Moles/Vol] 108 mmol/L High 98-107 [facility] Comment on above: Order Comment: 303.2 Performed By: #### L 500.4050, L100.0100 ####[facility] [address] [place], [address] CO2 [Moles/Vol] 24.0 mmol/L Normal 21.0-32.0 [facility] Comment on above: Order Comment: 303.2 Performed By: #### L 500.4050, L100.0100 ####[facility] [address] [place], [address] Creatinine [Mass/Vol] 0.42 mg/dL Low 0.55-1.02 [facility] Comment on above: Order Comment: 303.2 Result Comment: The validity of the calculated GFR GFRAA in patients over70 years has not been determined. Clinical correlation isessential. Performed By: #### L 500.4050, L100.0100 ####[facility] [address] [place], [address] EST GFR - AA 185 mL/min Normal >60 [facility] Comment on above: Order Comment: 303.2 Result Comment: Afri can Tristanian GFR Calc Performed By: #### L 500.4050, L100.0100 ####[facility] [address] [place], [address] GAP 8 Normal 5-15 [facility] Comment on above: Order Comment: 303.2 Performed By: #### L 500.4050, L100.0100 ####[facility] [address] [place], [address] GFR/1.73 sq M.predicted among non-blacks MDRD (S/P/Bld) [Vol rate/Area] 153 mL/min/{1.73_m2} Normal >60 [facility] Comment on above: Order Comment: 303.2 Result Comment: Non- GFR Calc Performed By: #### L 500.4050, L100.0100 ####[facility] [address] [place], [address] Globulin (S) [Mass/Vol] 4.1 g/dL Normal 2.2-4.2 [facility] Comment on above: Order Comment: 303.2 Performed By: #### L 500.4050, L100.0100 ####[facility] [address] [place], [address] Glucose [Mass/Vol] 104 mg/dL Normal 74-106 [facility] Comment on above: Order Comment: 303.2 Result Comment: Fast ing Glucose result from 100 to 125 mg/dLsuggests IMPAIRED HOMEOSTASIS per A.D.A. criteria. Performed By: #### L 500.4050, L100.0100 ####[facility] [address] [place], [address] Potassium [Moles/Vol] 3.8 mmol/L Normal 3.5-5.1 [facility] Comment on above: Order Comment: 303.2 Performed By: #### L 500.4050, L100.0100 ####[facility] [address] [place], [address] Sodium [Moles/Vol] 139 mmol/L Normal 136-145 [facility] Comment on above: Order Comment: 303.2 Performed By: #### L 500.4050, L100.0100 ####[facility] [address] [place], [address] T PROT 6.0 g/dL Low 6.4-8.2 [facility] Comment on above: Order Comment: 303.2 Performed By: #### L 500.4050, L100.0100 ####[facility] [address] [place], [address] Urea nitrogen [Mass/Vol] 13 mg/dL Normal 7-18 [facility] Comment on above: Order Comment: 303.2 Performed By: #### L 500.4050, L100.0100 ####[facility] [address] [place], [address] Eosinophil percentageOrdered By: Deep Dela Cruz on 06-20-2024 Eosinophils/100 WBC (Bld) 3.0 % 0-5 [facility] Erythrocyte distribution wid th (RBC) [Ratio]Ordered By: Deep Dela Cruz on 06-20-2024 Erythrocyte distribution width (RBC) [Entitic vol] 51.5 fL High 35.1-43.9 [facility] Erythrocyte distribution wid th ratioOrdered By: Deep Dela Cruz on 06-20-2024 Erythrocyte distribution width (RBC) [Ratio] 15.1 % High 11.6-14.6 [facility] Erythrocyte distribution wid th standard deviationOrdered By: Deep Dela Cruz on 06-20-2024 Erythrocyte distribution width (RBC) [Ratio] 51.5 fl High 35.1-43.9 [facility] Estimated glomerular filtrat ion rate (GFR) AmericanOrdered By: Deep Dela Cruz on 06-20-2024 Estimated GFR (MDRD) Amer 185 mL/min >60 [facility] Comment on above: GFR Calc Glomerular filtration rate ( GFR) estimationOrdered By: Deep Dela Cruz on 06-20-2024 Estimated GFR (MDRD) Non-Af Amer 153 mL/min >60 [facility] Comment on above: Non- GFR Calc GFR/1.73 sq M.predicted among non-blacks MDRD (S/P/Bld) [Vol rate/Area] 153 mL/min/{1.73_m2} >60 [facility] Comment on above: Non- GFR Calc Glucose measurementOrdered B y: Deep Dela Cruz on 06-20-2024 Glucose [Mass/Vol] 104 mg/dL 74-106 [facility] Comment on above: Fasting Glucose resu lt from 100 to 125 mg/dL suggests IMPAIRED HOMEOSTASIS per A.D.A. criteria. Hematocrit Auto (Bld) [Volum e fraction]Ordered By: Deep Dela Cruz on 06-20-2024 Hematocrit (Bld) [Volume fraction] 33.9 % Low 37-47 [facility] Hemoglobin measurementOrdere d By: Deep Dela Cruz on 06-20-2024 Hemoglobin (Bld) [Mass/Vol] 10.5 g/dL Low 12.0-15.0 [facility] Immature granulocytes/100 WB C Auto (Bld)Ordered By: Deep Dela Cruz on 06-20-2024 Immature granulocytes/100 WBC (Bld) 0.500 % 0.0-0.9 [facility] Comment on above: IG% - Immature Granu locytes (promyelocytes, myelocytes and metamyelocytes) > 1% indicates that a LEFT SHIFT is Present. Laboratory - Chemistry and C hemistry - challengeOrdered By: Deep Dela Cruz on 06-20-2024 AST [Catalytic activity/Vol] 17 U/L 15-37 [facility] Lymphocytes Auto (Unsp spec) [#/Vol]Ordered By: Deep Dela Cruz on 06-20-2024 Lymphocytes (Bld) [#/Vol] 1.17 10*3/uL 0.83-4.51 [facility] Lymphocytes/100 WBC Auto (Un sp spec)Ordered By: Deep Dela Cruz on 06-20-2024 Lymphocytes/100 WBC (Bld) 14.7 % Low 19-41 [facility] MCV (mean corpuscular volume ) determinationOrdered By: Deep Dela Cruz on 06-20-2024 MCV (RBC) [Entitic vol] 93.1 fL 81-99 [facility] Mean corpuscular hemoglobin (MCH) determinationOrdered By: Deep Dela Cruz on 06-20-2024 MCH (RBC) [Entitic mass] 28.8 pg 27.0-32.0 [facility] Mean corpuscular hemoglobin concentration (MCHC) determinationOrdered By: Deep Dela Cruz on 06-20-2024 MCHC (RBC) [Mass/Vol] 31.0 g/dL Low 32-36 [facility] Mean platelet volume determi nationOrdered By: Deep Dela Cruz on 06-20-2024 Platelet mean volume (Bld) [Entitic vol] 10.3 fL 6.2-12.0 [facility] Monocyte percentageOrdered B y: Deep Dela Cruz on 06-20-2024 Monocytes/100 WBC (Bld) 11.2 % High 0-10 [facility] Neutrophil percentageOrdered By: Deep Dela Cruz on 06-20-2024 Neutrophils/100 WBC (Bld) 69.5 % 47-70 [facility] Nucleated red blood cell per centageOrdered By: Deep Dela Cruz on 06-20-2024 Nucleated RBC/100 WBC (Bld) [Ratio] 0 % 0-5 [facility] Platelet countOrdered By: Fried on 06-20-2024 Platelets (Bld) [#/Vol] 299 10*3/uL 150-450 [facility] Potassium measurementOrdered By: Deep Dela Cruz on 06-20-2024 Potassium [Moles/Vol] 3.8 mmol/L 3.5-5.1 [facility] RBC Auto (Bld) [#/Vol]Ordere d By: Deep Dela Cruz on 06-20-2024 RBC (Bld) [#/Vol] 3.64 10*6/uL Low 4.2-5.4 [facility] Serum anion gap measurementO rdered By: Deep Dela Cruz on 06-20-2024 Anion gap [Moles/Vol] 8 mmol/L 5-15 [facility] Serum globulin measurementOr dered By: Deep Dela Cruz on 06-20-2024 Globulin (S) [Mass/Vol] 4.1 g/dL 2.2-4.2 [facility] Serum or plasma alanine wilson otransferase (ALT) measurementOrdered By: Deep Dela Cruz on 06-20-2024 ALT [Catalytic activity/Vol] 10 U/L Low 13-56 [facility] Serum or plasma albumin jessi urement (mass/volume)Ordered By: Deep Dela Cruz on 06-20-2024 Albumin [Mass/Vol] 1.9 g/dL Low 3.2-5.0 [facility] Serum or plasma alkaline jero sphatase measurementOrdered By: Deep Dela Cruz on 06-20-2024 ALP [Catalytic activity/Vol] 148 U/L High 45-117 [facility] Serum or plasma calcium jessi urement (mass/volume)Ordered By: Deep Dela Cruz on 06-20-2024 Calcium [Mass/Vol] 8.7 mg/dL 8.5-10.1 [facility] Serum or plasma creatinine m easurement (mass/volume)Ordered By: Deep Dela Cruz on 06-20-2024 Creatinine [Mass/Vol] 0.42 mg/dL Low 0.55-1.02 [facility] Comment on above: The validity of the calculated GFR & GFRAA in patients over 70 years has not been determined. Clinical correlation is essential. Serum or plasma urea nitroge n measurement (mass/volume)Ordered By: Deep Dela Cruz on 06-20-2024 Urea nitrogen [Mass/Vol] 13 mg/dL 7-18 [facility] Sodium levelOrdered By: Deep Dela Cruz on 06-20-2024 Sodium [Moles/Vol] 139 mmol/L 136-145 [facility] Total proteinOrdered By: Janet Dela Cruz on 06-20-2024 Protein [Mass/Vol] 6.0 g/dL Low 6.4-8.2 [facility] White blood cell (WBC) count Ordered By: Deep Dela Cruz on 06-20-2024 WBC (Bld) [#/Vol] 8.0 10*3/uL 4.4-11.0 [facility] C. difficile DNA ANKIT+probe Q l (Unsp spec)Ordered By: Deep Dela Cruz on 06-19-2024 Clostridioides difficile (PCR) [facility] Clostridium difficile detect ion by polymerase chain reactionOrdered By: Deep Dela Cruz on 06-19-2024 C. difficile DNA ANKIT+probe Ql (Unsp spec) [facility] Urine Cultureon 06-16-2024 URC Normal [facility] Comment on above: Performed By: #### L 400.0001, M100.2200 ####[facility] [address] [place], [address] Bilirubin Test strip Ql (U)O rdered By: Deep Dela Cruz on 06-09-2024 Bilirubin Ql (U) Negative Negative [facility] Epithelial cells.squamous LM Ql (Urine sed)Ordered By: Deep Dela Cruz on 06-09-2024 Epithelial cells.squamous LM.HPF (Urine sed) [#/Area] 0 /[HPF] 5-10 [facility] Glucose Ql (U)Ordered By: Fried on 06-09-2024 Urine Glucose (UA) Normal mg/dl Normal [facility] Ketones Test strip Ql (U)Ord ered By: Deep Dela Cruz on 06-09-2024 Ketones Ql (U) Negative Negative [facility] Microscopic analysis of urin e for red blood cells (RBC)Ordered By: Deep Dela Cruz on 06-09-2024 Urine RBC 0 SEEN /hpf 0-5 [facility] Mucus LM Ql (Urine sed)Order ed By: Deep Dela Cruz on 06-09-2024 Mucus Ql (Urine sed) 0 SEEN /hpf [facility] Nitrite Test strip Ql (U)Ord ered By: Deep Dela Cruz on 06-09-2024 Nitrite Ql (U) Positive High Negative [facility] Protein Test strip Ql (U)Ord ered By: Deep Dela Cruz on 06-09-2024 Protein Ql (U) 100 mg/dl High Negative [facility] Urinalysis, Completeon 06-09 BACTERIA 2+ /hpf Normal None Seen [facility] Comment on above: Order Comment: VANITA TER SPECIMEN Performed By: #### L 400.0001, M1.2199 ####[facility] [address] [place], [address] WBC 10-25 SEEN Normal 0-5 [facility] Comment on above: Order Comment: VANITA TER SPECIMEN Performed By: #### L 400.0001, .2199 ####[facility] [address] [place], [address] EPI,SQUAMOUS 0 SEEN Normal 5-10 [facility] Comment on above: Order Comment: VANITA TER SPECIMEN Performed By: #### L 400.0001, M1.0 ####[facility] [address] [place], [address] Mucus Ql (Urine sed) 0 SEEN Normal [facility] Comment on above: Order Comment: VANITA TER SPECIMEN Performed By: #### L 400.0001, M1.2199 ####[facility] [address] [place], [address] RBC 0 SEEN Normal 0-5 [facility] Comment on above: Order Comment: VANITA TER SPECIMEN Performed By: #### L 400.0001, M1.2199 ####[facility] [address] [place], [address] Urine blood detectionOrdered By: Deep Dela Cruz on 06-09-2024 Urine Occult Blood 150 /ul High Negative [facility] Urine clarityOrdered By: Janet Dela Cruz on 06-09-2024 Clarity (U) Turbid Clear [facility] Urine color determinationOrd ered By: Deep Dela Cruz on 06-09-2024 Color (U) Yellow Yellow [facility] Urine cultureOrdered By: Janet Dela Cruz on 06-09-2024 Bacteria identified Cx Nom (U) Klebsiella pneumoniae Abnormal [facility] Bacteria identified Cx Nom (U) Proteus mirabilis Abnormal [facility] Urine leukocyte esterase det ection by dipstickOrdered By: Deep Dela Cruz on 06-09-2024 Leukocyte esterase Test strip Ql (U) 500 /ul High Negative [facility] Urine pHOrdered By: Deep hayes on 06-09-2024 pH (U) 8.0 [pH] 5.0 - 8.0 [facility] Urine sediment bacteria coun t by microscopy (number/high power field)Ordered By: Deep Dela Cruz on 06-09-2024 Bacteria LM.HPF (Urine sed) [#/Area] 2 /[HPF] None Seen [facility] Urine specific gravity measu rementOrdered By: Deep Dela Cruz on 06-09-2024 Specific gravity (U) [Rel density] 1.010 1.002-1.030 [facility] Urobilinogen Ql (U)Ordered B y: Deep Dela Cruz on 06-09-2024 Urine Urobilinogen Normal mg/dl Normal [facility] White blood cell countOrdere d By: Deep Dela Cruz on 06-09-2024 Urine WBC 10-25 SEEN /hpf 0-5 [facility] Albumin to globulin ratioOrd ered By: Deep Dela Cruz on 06-05-2024 Albumin/Globulin [Mass ratio] 0.5 {ratio} Low 0.9-2.4 [facility] Bilirubin, totalOrdered By: Deep Dela Cruz on 06-05-2024 Bilirubin [Mass/Vol] 0.60 mg/dL 0.20-1.00 [facility] Comment on above: For patients on eltr ombopag therapy, use of Dimension [place] TBIL is not recommended. Blood urea nitrogen (BUN)/cr eatinine ratioOrdered By: Deep Dela Cruz on 06-05-2024 Urea nitrogen/Creatinine [Mass ratio] 26.1 mg/mg High 10-20 [facility] CBC-Complete Blood Cnt No Di ffon 06-05-2024 Erythrocyte distribution width (RBC) [Ratio] 15.0 % High 11.6-14.6 [facility] Comment on above: Order Comment: 303-2 Performed By: #### L 500.4050, L100.0500 ####[facility] [address] [place], [address] Hematocrit (Bld) [Volume fraction] 38.0 % Normal 37-47 [facility] Comment on above: Order Comment: 303-2 Performed By: #### L 500.4050, L100.0500 ####[facility] [address] [place], [address] Hemoglobin (Bld) [Mass/Vol] 11.3 g/dL Low 12.0-15.0 [facility] Comment on above: Order Comment: 303-2 Performed By: #### L 500.4050, L100.0500 ####[facility] [address] [place], [address] MCH (RBC) [Entitic mass] 29.3 pg Normal 27.0-32.0 [facility] Comment on above: Order Comment: 303-2 Performed By: #### L 500.4050, L100.0500 ####[facility] [address] [place], [address] MCHC (RBC) [Mass/Vol] 29.7 g/dL Low 32-36 [facility] Comment on above: Order Comment: 303-2 Performed By: #### L 500.4050, L100.0500 ####[facility] [address] [place], [address] MCV (RBC) [Entitic vol] 98.4 fL Normal 81-99 [facility] Comment on above: Order Comment: 303-2 Performed By: #### L 500.4050, L100.0500 ####[facility] [address] [place], [address] Platelet mean volume (Bld) [Entitic vol] 10.7 fL Normal 6.2-12.0 [facility] Comment on above: Order Comment: 303-2 Performed By: #### L 500.4050, L100.0500 ####[facility] [address] [place], [address] Platelets (Bld) [#/Vol] 401 10*3/uL Normal 150-450 [facility] Comment on above: Order Comment: 303-2 Performed By: #### L 500.4050, L100.0500 ####[facility] [address] [place], [address] RBC (Bld) [#/Vol] 3.86 10*6/uL Low 4.2-5.4 [facility] Comment on above: Order Comment: 303-2 Performed By: #### L 500.4050, L100.0500 ####[facility] [address] [place], [address] RDW SD 54.3 fl High 35.1-43.9 [facility] Comment on above: Order Comment: 303-2 Performed By: #### L 500.4050, L100.0500 ####[facility] [address] [place], [address] WBC (Bld) [#/Vol] 4.8 10*3/uL Normal 4.4-11.0 [facility] Comment on above: Order Comment: 303-2 Performed By: #### L 500.4050, L100.0500 ####[facility] [address] [place], [address] Carbon dioxide measurementOr dered By: Deep Dela Cruz on 06-05-2024 CO2 [Moles/Vol] 25.0 mmol/L 21.0-32.0 [facility] Chloride measurementOrdered By: Deep Dela Cruz on 06-05-2024 Chloride [Moles/Vol] 105 mmol/L 98-107 [facility] Comprehensive Metabolic Prof ilon 06-05-2024 Albumin [Mass/Vol] 2.1 g/dL Low 3.2-5.0 [facility] Comment on above: Order Comment: 303-2 Performed By: #### L 500.4050, L100.0500 ####[facility] [address] [place], [address] Albumin/Globulin [Mass ratio] 0.5 {ratio} Low 0.9-2.4 [facility] Comment on above: Order Comment: 303-2 Performed By: #### L 500.4050, L100.0500 ####[facility] [address] [place], [address] ALK P 155 U/L High 45-117 [facility] Comment on above: Order Comment: 303-2 Performed By: #### L 500.4050, L100.0500 ####[facility] [address] [place], [address] ALT [Catalytic activity/Vol] 7 U/L Low 13-56 [facility] Comment on above: Order Comment: 303-2 Performed By: #### L 500.4050, L100.0500 ####[facility] [address] [place], [address] AST [Catalytic activity/Vol] 13 U/L Low 15-37 [facility] Comment on above: Order Comment: 303-2 Performed By: #### L 500.4050, L100.0500 ####[facility] [address] [place], [address] Bilirubin [Mass/Vol] 0.60 mg/dL Normal 0.20-1.00 [facility] Comment on above: Order Comment: 303-2 Result Comment: For patients on eltrombopag therapy, use of Dimension [place] TBIL is not recommended. Performed By: #### L 500.4050, L100.0500 ####[facility] [address] [place], [address] BUN/CRE 26.1 RATIO High 10-20 [facility] Comment on above: Order Comment: 303-2 Performed By: #### L 500.4050, L100.0500 ####[facility] [address] [place], [address] CA,Total 8.9 mg/dL Normal 8.5-10.1 [facility] Comment on above: Order Comment: 303-2 Performed By: #### L 500.4050, L100.0500 ####[facility] [address] [place], [address] Chloride [Moles/Vol] 105 mmol/L Normal 98-107 [facility] Comment on above: Order Comment: 303-2 Performed By: #### L 500.4050, L100.0500 ####[facility] [address] [place], [address] CO2 [Moles/Vol] 25.0 mmol/L Normal 21.0-32.0 [facility] Comment on above: Order Comment: 303-2 Performed By: #### L 500.4050, L100.0500 ####[facility] [address] [place], [address] Creatinine [Mass/Vol] 0.54 mg/dL Low 0.55-1.02 [facility] Comment on above: Order Comment: 303-2 Result Comment: The validity of the calculated GFR GFRAA in patients over70 years has not been determined. Clinical correlation isessential. Performed By: #### L 500.4050, L100.0500 ####[facility] [address] [place], [address] EST GFR - AA 140 mL/min Normal >60 [facility] Comment on above: Order Comment: 303-2 Result Comment: Afri can Tristanian GFR Calc Performed By: #### L 500.4050, L100.0500 ####[facility] [address] [place], [address] GAP 7 Normal 5-15 [facility] Comment on above: Order Comment: 303-2 Performed By: #### L 500.4050, L100.0500 ####[facility] [address] [place], [address] GFR/1.73 sq M.predicted among non-blacks MDRD (S/P/Bld) [Vol rate/Area] 116 mL/min/{1.73_m2} Normal >60 [facility] Comment on above: Order Comment: 303-2 Result Comment: Non- GFR Calc Performed By: #### L 500.4050, L100.0500 ####[facility] [address] [place], [address] Globulin (S) [Mass/Vol] 4.4 g/dL High 2.2-4.2 [facility] Comment on above: Order Comment: 303-2 Performed By: #### L 500.4050, L100.0500 ####[facility] [address] [place], [address] Glucose [Mass/Vol] 98 mg/dL Normal 74-106 [facility] Comment on above: Order Comment: 303-2 Performed By: #### L 500.4050, L100.0500 ####[facility] [address] [place], [address] Potassium [Moles/Vol] 3.8 mmol/L Normal 3.5-5.1 [facility] Comment on above: Order Comment: 303-2 Performed By: #### L 500.4050, L100.0500 ####[facility] [address] [place], [address] Sodium [Moles/Vol] 137 mmol/L Normal 136-145 [facility] Comment on above: Order Comment: 303-2 Performed By: #### L 500.4050, L100.0500 ####[facility] [address] [place], [address] T PROT 6.5 g/dL Normal 6.4-8.2 [facility] Comment on above: Order Comment: 303-2 Performed By: #### L 500.4050, L100.0500 ####[facility] [address] [place], [address] Urea nitrogen [Mass/Vol] 14 mg/dL Normal 7-18 [facility] Comment on above: Order Comment: 303-2 Performed By: #### L 500.4050, L100.0500 ####[facility] [address] [place], [address] Erythrocyte distribution wid th (RBC) [Ratio]Ordered By: Deep Dela Cruz on 06-05-2024 Erythrocyte distribution width (RBC) [Entitic vol] 54.3 fL High 35.1-43.9 [facility] Erythrocyte distribution wid th ratioOrdered By: Deep Dela Cruz on 06-05-2024 Erythrocyte distribution width (RBC) [Ratio] 15.0 % High 11.6-14.6 [facility] Estimated glomerular filtrat ion rate (GFR) AmericanOrdered By: Deep Dela Cruz on 06-05-2024 Estimated GFR (MDRD) Amer 140 mL/min >60 [facility] Comment on above: GFR Calc Glomerular filtration rate ( GFR) estimationOrdered By: Deep Dela Cruz on 06-05-2024 Estimated GFR (MDRD) Non-Af Amer 116 mL/min >60 [facility] Comment on above: Non- GFR Calc Glucose measurementOrdered B y: Deep Dela Cruz on 06-05-2024 Glucose [Mass/Vol] 98 mg/dL 74-106 [facility] Hematocrit Auto (Bld) [Volum e fraction]Ordered By: Deep Dela Cruz on 06-05-2024 Hematocrit (Bld) [Volume fraction] 38.0 % 37-47 [facility] Hemoglobin measurementOrdere d By: Deep Dela Cruz on 06-05-2024 Hemoglobin (Bld) [Mass/Vol] 11.3 g/dL Low 12.0-15.0 [facility] Laboratory - Chemistry and C hemistry - challengeOrdered By: Deep Dela Cruz on 06-05-2024 AST [Catalytic activity/Vol] 13 U/L Low 15-37 [facility] MCV (mean corpuscular volume ) determinationOrdered By: Deep Dela Cruz on 06-05-2024 MCV (RBC) [Entitic vol] 98.4 fL 81-99 [facility] Mean corpuscular hemoglobin (MCH) determinationOrdered By: Deep Dela Cruz on 06-05-2024 MCH (RBC) [Entitic mass] 29.3 pg 27.0-32.0 [facility] Mean corpuscular hemoglobin concentration (MCHC) determinationOrdered By: Deep Dela Cruz on 06-05-2024 MCHC (RBC) [Mass/Vol] 29.7 g/dL Low 32-36 [facility] Mean platelet volume determi nationOrdered By: Deep Dela Cruz on 06-05-2024 Platelet mean volume (Bld) [Entitic vol] 10.7 fL 6.2-12.0 [facility] Platelet countOrdered By: Fried on 06-05-2024 Platelets (Bld) [#/Vol] 401 10*3/uL 150-450 [facility] Potassium measurementOrdered By: Deep Dela Cruz on 06-05-2024 Potassium [Moles/Vol] 3.8 mmol/L 3.5-5.1 [facility] RBC Auto (Bld) [#/Vol]Ordere d By: Deep Dela Cruz on 06-05-2024 RBC (Bld) [#/Vol] 3.86 10*6/uL Low 4.2-5.4 [facility] Serum anion gap measurementO rdered By: Deep Dela Cruz on 06-05-2024 Anion gap [Moles/Vol] 7 mmol/L 5-15 [facility] Serum globulin measurementOr dered By: Deep Dela Cruz on 06-05-2024 Globulin (S) [Mass/Vol] 4.4 g/dL High 2.2-4.2 [facility] Serum or plasma alanine wilson otransferase (ALT) measurementOrdered By: Deep Dela Cruz on 06-05-2024 ALT [Catalytic activity/Vol] 7 U/L Low 13-56 [facility] Serum or plasma albumin jessi urement (mass/volume)Ordered By: Deep Dela Cruz on 06-05-2024 Albumin [Mass/Vol] 2.1 g/dL Low 3.2-5.0 [facility] Serum or plasma alkaline jero sphatase measurementOrdered By: Deep Dela Cruz on 06-05-2024 ALP [Catalytic activity/Vol] 155 U/L High 45-117 [facility] Serum or plasma calcium jessi urement (mass/volume)Ordered By: Deep Dela Cruz on 06-05-2024 Calcium [Mass/Vol] 8.9 mg/dL 8.5-10.1 [facility] Serum or plasma creatinine m easurement (mass/volume)Ordered By: Deep Dela Cruz on 06-05-2024 Creatinine [Mass/Vol] 0.54 mg/dL Low 0.55-1.02 [facility] Comment on above: The validity of the calculated GFR & GFRAA in patients over 70 years has not been determined. Clinical correlation is essential. Serum or plasma urea nitroge n measurement (mass/volume)Ordered By: Deep Dela Cruz on 06-05-2024 Urea nitrogen [Mass/Vol] 14 mg/dL 7-18 [facility] Sodium levelOrdered By: Deep Dela Cruz on 06-05-2024 Sodium [Moles/Vol] 137 mmol/L 136-145 [facility] Total proteinOrdered By: Janet Dela Cruz on 06-05-2024 Protein [Mass/Vol] 6.5 g/dL 6.4-8.2 [facility] White blood cell (WBC) count Ordered By: Deep Dela Cruz on 06-05-2024 WBC (Bld) [#/Vol] 4.8 10*3/uL 4.4-11.0 [facility] Basic Metabolic Profile (BMP )on 05-29-2024 BUN/CRE 30.3 RATIO High 10-20 [facility] Comment on above: Order Comment: 303.2 Performed By: #### L 100.0500, L500.2500 ####[facility] [address] [place], [address] CA,Total 8.6 mg/dL Normal 8.5-10.1 [facility] Comment on above: Order Comment: 303.2 Performed By: #### L 100.0500, L500.2500 ####[facility] [address] [place], [address] Chloride [Moles/Vol] 104 mmol/L Normal 98-107 [facility] Comment on above: Order Comment: 303.2 Performed By: #### L 100.0500, L500.2500 ####[facility] [address] [place], [address] CO2 [Moles/Vol] 26.0 mmol/L Normal 21.0-32.0 [facility] Comment on above: Order Comment: 303.2 Performed By: #### L 100.0500, L500.2500 ####[facility] [address] [place], [address] Creatinine [Mass/Vol] 0.46 mg/dL Low 0.55-1.02 [facility] Comment on above: Order Comment: 303.2 Result Comment: The validity of the calculated GFR GFRAA in patients over70 years has not been determined. Clinical correlation isessential. Performed By: #### L 100.0500, L500.2500 ####[facility] [address] [place], [address] EST GFR - AA 166 mL/min Normal >60 [facility] Comment on above: Order Comment: 303.2 Result Comment: Afri can Tristanian GFR Calc Performed By: #### L 100.0500, L500.2500 ####[facility] [address] [place], [address] GAP 7 Normal 5-15 [facility] Comment on above: Order Comment: 303.2 Performed By: #### L 100.0500, L500.2500 ####[facility] [address] [place], [address] GFR/1.73 sq M.predicted among non-blacks MDRD (S/P/Bld) [Vol rate/Area] 137 mL/min/{1.73_m2} Normal >60 [facility] Comment on above: Order Comment: 303.2 Result Comment: Non- GFR Calc Performed By: #### L 100.0500, L500.2500 ####[facility] [address] [place], [address] Glucose [Mass/Vol] 99 mg/dL Normal 74-106 [facility] Comment on above: Order Comment: 303.2 Performed By: #### L 100.0500, L500.2500 ####[facility] [address] [place], [address] Potassium [Moles/Vol] 4.0 mmol/L Normal 3.5-5.1 [facility] Comment on above: Order Comment: 303.2 Performed By: #### L 100.0500, L500.2500 ####[facility] [address] [place], [address] Sodium [Moles/Vol] 137 mmol/L Normal 136-145 [facility] Comment on above: Order Comment: 303.2 Performed By: #### L 100.0500, L500.2500 ####[facility] [address] [place], [address] Urea nitrogen [Mass/Vol] 14 mg/dL Normal 7-18 [facility] Comment on above: Order Comment: 303.2 Performed By: #### L 100.0500, L500.2500 ####[facility] [address] [place], [address] Blood urea nitrogen (BUN)/cr eatinine ratioOrdered By: Deep Dela Cruz on 05-29-2024 Urea nitrogen/Creatinine [Mass ratio] 30.3 mg/mg High 10-20 [facility] CBC-Complete Blood Cnt No Di ffon 05-29-2024 Erythrocyte distribution width (RBC) [Ratio] 15.8 % High 11.6-14.6 [facility] Comment on above: Order Comment: 303.2 Performed By: #### L 100.0500, L500.2500 ####[facility] [address] [place], [address] Hematocrit (Bld) [Volume fraction] 29.1 % Low 37-47 [facility] Comment on above: Order Comment: 303.2 Performed By: #### L 100.0500, L500.2500 ####[facility] [address] [place], [address] Hemoglobin (Bld) [Mass/Vol] 8.8 g/dL Low 12.0-15.0 [facility] Comment on above: Order Comment: 303.2 Performed By: #### L 100.0500, L500.2500 ####[facility] [address] [place], [address] MCH (RBC) [Entitic mass] 28.8 pg Normal 27.0-32.0 [facility] Comment on above: Order Comment: 303.2 Performed By: #### L 100.0500, L500.2500 ####[facility] [address] [place], [address] MCHC (RBC) [Mass/Vol] 30.2 g/dL Low 32-36 [facility] Comment on above: Order Comment: 303.2 Performed By: #### L 100.0500, L500.2500 ####[facility] [address] [place], [address] MCV (RBC) [Entitic vol] 95.1 fL Normal 81-99 [facility] Comment on above: Order Comment: 303.2 Performed By: #### L 100.0500, L500.2500 ####[facility] [address] [place], [address] Platelet mean volume (Bld) [Entitic vol] 10.2 fL Normal 6.2-12.0 [facility] Comment on above: Order Comment: 303.2 Performed By: #### L 100.0500, L500.2500 ####[facility] [address] [place], [address] Platelets (Bld) [#/Vol] 350 10*3/uL Normal 150-450 [facility] Comment on above: Order Comment: 303.2 Performed By: #### L 100.0500, L500.2500 ####[facility] [address] [place], [address] RBC (Bld) [#/Vol] 3.06 10*6/uL Low 4.2-5.4 [facility] Comment on above: Order Comment: 303.2 Performed By: #### L 100.0500, L500.2500 ####[facility] [address] [place], [address] RDW SD 54.8 fl High 35.1-43.9 [facility] Comment on above: Order Comment: 303.2 Performed By: #### L 100.0500, L500.2500 ####[facility] [address] [place], [address] WBC (Bld) [#/Vol] 6.1 10*3/uL Normal 4.4-11.0 [facility] Comment on above: Order Comment: 303.2 Performed By: #### L 100.0500, L500.2500 ####[facility] [address] [place], [address] Carbon dioxide measurementOr dered By: Deep Dela Cruz on 05-29-2024 CO2 [Moles/Vol] 26.0 mmol/L 21.0-32.0 [facility] Chloride measurementOrdered By: Deep Dela Cruz on 05-29-2024 Chloride [Moles/Vol] 104 mmol/L 98-107 [facility] Erythrocyte distribution wid th (RBC) [Ratio]Ordered By: Deep Dela Cruz on 05-29-2024 Erythrocyte distribution width (RBC) [Entitic vol] 54.8 fL High 35.1-43.9 [facility] Erythrocyte distribution wid th ratioOrdered By: Deep Dela Cruz on 05-29-2024 Erythrocyte distribution width (RBC) [Ratio] 15.8 % High 11.6-14.6 [facility] Estimated glomerular filtrat ion rate (GFR) AmericanOrdered By: Deep Dela Cruz on 05-29-2024 Estimated GFR (MDRD) Amer 166 mL/min >60 [facility] Comment on above: GFR Calc Glomerular filtration rate ( GFR) estimationOrdered By: Deep Dela Cruz on 05-29-2024 Estimated GFR (MDRD) Non-Af Amer 137 mL/min >60 [facility] Comment on above: Non- GFR Calc Glucose measurementOrdered B y: Deep Dela Cruz on 05-29-2024 Glucose [Mass/Vol] 99 mg/dL 74-106 [facility] Hematocrit Auto (Bld) [Volum e fraction]Ordered By: Deep Dela Cruz on 05-29-2024 Hematocrit (Bld) [Volume fraction] 29.1 % Low 37-47 [facility] Hemoglobin measurementOrdere d By: Deep Dela Cruz on 05-29-2024 Hemoglobin (Bld) [Mass/Vol] 8.8 g/dL Low 12.0-15.0 [facility] MCV (mean corpuscular volume ) determinationOrdered By: Deep Dela Cruz on 05-29-2024 MCV (RBC) [Entitic vol] 95.1 fL 81-99 [facility] Mean corpuscular hemoglobin (MCH) determinationOrdered By: Deep Dela Cruz on 05-29-2024 MCH (RBC) [Entitic mass] 28.8 pg 27.0-32.0 [facility] Mean corpuscular hemoglobin concentration (MCHC) determinationOrdered By: Deep Dela Cruz on 05-29-2024 MCHC (RBC) [Mass/Vol] 30.2 g/dL Low 32-36 [facility] Mean platelet volume determi nationOrdered By: Deep Dela Cruz on 05-29-2024 Platelet mean volume (Bld) [Entitic vol] 10.2 fL 6.2-12.0 [facility] Platelet countOrdered By: Fried on 05-29-2024 Platelets (Bld) [#/Vol] 350 10*3/uL 150-450 [facility] Potassium measurementOrdered By: Deep Dela Cruz on 05-29-2024 Potassium [Moles/Vol] 4.0 mmol/L 3.5-5.1 [facility] RBC Auto (Bld) [#/Vol]Ordere d By: Deep Dela Cruz on 05-29-2024 RBC (Bld) [#/Vol] 3.06 10*6/uL Low 4.2-5.4 [facility] Serum anion gap measurementO rdered By: Deep Dela Cruz on 05-29-2024 Anion gap [Moles/Vol] 7 mmol/L 5-15 [facility] Serum or plasma calcium jessi urement (mass/volume)Ordered By: Deep Dela Cruz on 05-29-2024 Calcium [Mass/Vol] 8.6 mg/dL 8.5-10.1 [facility] Serum or plasma creatinine m easurement (mass/volume)Ordered By: Deep Dela Cruz on 05-29-2024 Creatinine [Mass/Vol] 0.46 mg/dL Low 0.55-1.02 [facility] Comment on above: The validity of the calculated GFR & GFRAA in patients over 70 years has not been determined. Clinical correlation is essential. Serum or plasma urea nitroge n measurement (mass/volume)Ordered By: Deep Dela Cruz on 05-29-2024 Urea nitrogen [Mass/Vol] 14 mg/dL 7-18 [facility] Sodium levelOrdered By: Deep Dela Cruz on 05-29-2024 Sodium [Moles/Vol] 137 mmol/L 136-145 [facility] White blood cell (WBC) count Ordered By: Deep Dela Cruz on 05-29-2024 WBC (Bld) [#/Vol] 6.1 10*3/uL 4.4-11.0 [facility] Urine Cultureon 05-26-2024 URC Normal [facility] Comment on above: Performed By: #### L 400.0001, M100.2200 ####[facility] [address] [place], [address] Bacteria LM.HPF (Urine sed) [#/Area]Ordered By: Deep Dela Cruz on 05-23-2024 Urine Bacteria RARE /hpf None Seen [facility] Bilirubin Test strip Ql (U)O rdered By: Deep Dela Cruz on 05-23-2024 Bilirubin Ql (U) Negative Negative [facility] Epithelial cells.squamous LM Ql (Urine sed)Ordered By: Deep Dela Cruz on 05-23-2024 Epithelial cells.squamous LM.HPF (Urine sed) [#/Area] 0 /[HPF] 5-10 [facility] Glucose Ql (U)Ordered By: Fried on 05-23-2024 Urine Glucose (UA) Normal mg/dl Normal [facility] Ketones Test strip Ql (U)Ord ered By: Deep Dela Cruz on 05-23-2024 Ketones Ql (U) Negative Negative [facility] Microscopic analysis of urin e for red blood cells (RBC)Ordered By: Deep Dela Cruz on 05-23-2024 Urine RBC 0 SEEN /hpf 0-5 [facility] Mucus LM Ql (Urine sed)Order ed By: Deep Dela Cruz on 05-23-2024 Mucus Ql (Urine sed) 0 SEEN /hpf [facility] Nitrite Test strip Ql (U)Ord ered By: Deep Dela Cruz on 05-23-2024 Nitrite Ql (U) Negative Negative [facility] Protein Test strip Ql (U)Ord ered By: Deep Dela Cruz on 05-23-2024 Protein Ql (U) 15 mg/dl High Negative [facility] Urinalysis, Completeon 05-23 BACTERIA RARE Normal None Seen [facility] Comment on above: Order Comment: SCCAT HETER SPECIMEN Performed By: #### L 400.0001, M1.0 ####[facility] [address] [place], [address] EPI,SQUAMOUS 0-5 SEEN Normal 5-10 [facility] Comment on above: Order Comment: SCCAT HETER SPECIMEN Performed By: #### L 400.0001, M1.0 ####[facility] [address] [place], [address] WBC 10-25 SEEN Normal 0-5 [facility] Comment on above: Order Comment: SCCAT HETER SPECIMEN Performed By: #### L 400.0001, M1.0 ####[facility] [address] [place], [address] Mucus Ql (Urine sed) 0 SEEN Normal [facility] Comment on above: Order Comment: SCCAT HETER SPECIMEN Performed By: #### L 400.0001, M100.0 ####[facility] [address] [place], [address] RBC 0 SEEN Normal 0-5 [facility] Comment on above: Order Comment: SCCAT HETER SPECIMEN Performed By: #### L 400.0001, M100.0 ####[facility] [address] [place], [address] Urine blood detectionOrdered By: Deep Dela Cruz on 05-23-2024 Urine Occult Blood Negative Negative [facility] Urine clarityOrdered By: Janet Dela Cruz on 05-23-2024 Clarity (U) Sl. Cloudy Clear [facility] Urine color determinationOrd ered By: Deep Dela Cruz on 05-23-2024 Color (U) Yellow Yellow [facility] Urine leukocyte esterase det ection by dipstickOrdered By: Deep Dela Cruz on 05-23-2024 Leukocyte esterase Test strip Ql (U) 500 /ul High Negative [facility] Urine pHOrdered By: Deep hayes on 05-23-2024 pH (U) 7.0 [pH] 5.0 - 8.0 [facility] Urine specific gravity measu rementOrdered By: Deep Dela Cruz on 05-23-2024 Specific gravity (U) [Rel density] 1.010 1.002-1.030 [facility] Urobilinogen Ql (U)Ordered B y: Deep Dela Cruz on 05-23-2024 Urine Urobilinogen Normal mg/dl Normal [facility] White blood cell countOrdere d By: Deep Dela Cruz on 05-23-2024 Urine WBC 10-25 SEEN /hpf 0-5 [facility] Albumin to globulin ratioOrd ered By: Deep Dela Cruz on 05-22-2024 Albumin/Globulin [Mass ratio] 0.5 {ratio} Low 0.9-2.4 [facility] Bilirubin, totalOrdered By: Deep Dela Cruz on 05-22-2024 Bilirubin [Mass/Vol] 0.40 mg/dL 0.20-1.00 [facility] Comment on above: For patients on eltr ombopag therapy, use of Dimension [place] TBIL is not recommended. Blood urea nitrogen (BUN)/cr eatinine ratioOrdered By: Deep Dela Cruz on 05-22-2024 Urea nitrogen/Creatinine [Mass ratio] 21.7 mg/mg High 10-20 [facility] CBC-Complete Blood Cnt No Di ffon 05-22-2024 Erythrocyte distribution width (RBC) [Ratio] 15.4 % High 11.6-14.6 [facility] Comment on above: Order Comment: 303.2 Performed By: #### L 500.4050, L100.0500 ####[facility] [address] [place], [place], [address] Hematocrit (Bld) [Volume fraction] 26.4 % Low 37-47 [facility] Comment on above: Order Comment: 303.2 Performed By: #### L 500.4050, L100.0500 ####[facility] [address] [place], [address] Hemoglobin (Bld) [Mass/Vol] 8.0 g/dL Low 12.0-15.0 [facility] Comment on above: Order Comment: 303.2 Performed By: #### L 500.4050, L100.0500 ####[facility] [address] [place], [address] MCH (RBC) [Entitic mass] 28.9 pg Normal 27.0-32.0 [facility] Comment on above: Order Comment: 303.2 Performed By: #### L 500.4050, L100.0500 ####[facility] [address] [place], [address] MCHC (RBC) [Mass/Vol] 30.3 g/dL Low 32-36 [facility] Comment on above: Order Comment: 303.2 Performed By: #### L 500.4050, L100.0500 ####[facility] [address] [place], [address] MCV (RBC) [Entitic vol] 95.3 fL Normal 81-99 [facility] Comment on above: Order Comment: 303.2 Performed By: #### L 500.4050, L100.0500 ####[facility] [address] [place], [address] Platelet mean volume (Bld) [Entitic vol] 10.0 fL Normal 6.2-12.0 [facility] Comment on above: Order Comment: 303.2 Performed By: #### L 500.4050, L100.0500 ####[facility] [address] [place], [address] Platelets (Bld) [#/Vol] 484 10*3/uL High 150-450 [facility] Comment on above: Order Comment: 303.2 Performed By: #### L 500.4050, L100.0500 ####[facility] [address] [place], [address] RBC (Bld) [#/Vol] 2.77 10*6/uL Low 4.2-5.4 [facility] Comment on above: Order Comment: 303.2 Performed By: #### L 500.4050, L100.0500 ####[facility] [address] [place], [address] RDW SD 53.6 fl High 35.1-43.9 [facility] Comment on above: Order Comment: 303.2 Performed By: #### L 500.4050, L100.0500 ####[facility] [address] [place], [address] WBC (Bld) [#/Vol] 8.0 10*3/uL Normal 4.4-11.0 [facility] Comment on above: Order Comment: 303.2 Performed By: #### L 500.4050, L100.0500 ####[facility] [address] [place], [address] CNPNon 05-22-2024 [facility] Carbon dioxide measurementOr dered By: Deep Dela Cruz on 05-22-2024 CO2 [Moles/Vol] 29.0 mmol/L 21.0-32.0 [facility] Chloride measurementOrdered By: Deep Dela Cruz on 05-22-2024 Chloride [Moles/Vol] 103 mmol/L 98-107 [facility] Comprehensive Metabolic Prof ilon 05-22-2024 Albumin [Mass/Vol] 1.8 g/dL Low 3.2-5.0 [facility] Comment on above: Order Comment: 303.2 Performed By: #### L 500.4050, L100.0500 ####[facility] [address] [place], [address] Albumin/Globulin [Mass ratio] 0.5 {ratio} Low 0.9-2.4 [facility] Comment on above: Order Comment: 303.2 Performed By: #### L 500.4050, L100.0500 ####[facility] [address] [place], [address] ALK P 141 U/L High 45-117 [facility] Comment on above: Order Comment: 303.2 Performed By: #### L 500.4050, L100.0500 ####[facility] [address] [place], [address] ALT [Catalytic activity/Vol] 10 U/L Low 13-56 [facility] Comment on above: Order Comment: 303.2 Performed By: #### L 500.4050, L100.0500 ####[facility] [address] [place], [address] AST [Catalytic activity/Vol] 19 U/L Normal 15-37 [facility] Comment on above: Order Comment: 303.2 Result Comment: Slig ht Hemolysis, Result may be falsely increased. Performed By: #### L 500.4050, L100.0500 ####[facility] [address] [place], [address] Bilirubin [Mass/Vol] 0.40 mg/dL Normal 0.20-1.00 [facility] Comment on above: Order Comment: 303.2 Result Comment: For patients on eltrombopag therapy, use of Dimension [place] TBIL is not recommended. Performed By: #### L 500.4050, L100.0500 ####[facility] [address] [place], [address] BUN/CRE 21.7 RATIO High 10-20 [facility] Comment on above: Order Comment: 303.2 Performed By: #### L 500.4050, L100.0500 ####[facility] [address] [place], [address] CA,Total 8.2 mg/dL Low 8.5-10.1 [facility] Comment on above: Order Comment: 303.2 Performed By: #### L 500.4050, L100.0500 ####[facility] [address] [place], [address] Chloride [Moles/Vol] 103 mmol/L Normal 98-107 [facility] Comment on above: Order Comment: 303.2 Performed By: #### L 500.4050, L100.0500 ####[facility] [address] [place], [address] CO2 [Moles/Vol] 29.0 mmol/L Normal 21.0-32.0 [facility] Comment on above: Order Comment: 303.2 Performed By: #### L 500.4050, L100.0500 ####[facility] [address] [place], [address] Creatinine [Mass/Vol] 0.51 mg/dL Low 0.55-1.02 [facility] Comment on above: Order Comment: 303.2 Result Comment: The validity of the calculated GFR GFRAA in patients over70 years has not been determined. Clinical correlation isessential. Performed By: #### L 500.4050, L100.0500 ####[facility] [address] [place], [address] EST GFR - AA 149 mL/min Normal >60 [facility] Comment on above: Order Comment: 303.2 Result Comment: Afri can Tristanian GFR Calc Performed By: #### L 500.4050, L100.0500 ####[facility] [address] [place], [address] GAP 5 Normal 5-15 [facility] Comment on above: Order Comment: 303.2 Performed By: #### L 500.4050, L100.0500 ####[facility] [address] [place], [address] GFR/1.73 sq M.predicted among non-blacks MDRD (S/P/Bld) [Vol rate/Area] 124 mL/min/{1.73_m2} Normal >60 [facility] Comment on above: Order Comment: 303.2 Result Comment: Non- GFR Calc Performed By: #### L 500.4050, L100.0500 ####[facility] [address] [place], [address] Globulin (S) [Mass/Vol] 3.8 g/dL Normal 2.2-4.2 [facility] Comment on above: Order Comment: 303.2 Performed By: #### L 500.4050, L100.0500 ####[facility] [address] [place], [address] Glucose [Mass/Vol] 102 mg/dL Normal 74-106 [facility] Comment on above: Order Comment: 303.2 Result Comment: Fast ing Glucose result from 100 to 125 mg/dLsuggests IMPAIRED HOMEOSTASIS per A.D.A. criteria. Performed By: #### L 500.4050, L100.0500 ####[facility] [address] [place], [address] Potassium [Moles/Vol] 4.0 mmol/L Normal 3.5-5.1 [facility] Comment on above: Order Comment: 303.2 Result Comment: Slig ht Hemolysis, Result may be falsely increased. Performed By: #### L 500.4050, L100.0500 ####[facility] [address] [place], [address] Sodium [Moles/Vol] 137 mmol/L Normal 136-145 [facility] Comment on above: Order Comment: 303.2 Performed By: #### L 500.4050, L100.0500 ####[facility] [address] [place], [address] T PROT 5.6 g/dL Low 6.4-8.2 [facility] Comment on above: Order Comment: 303.2 Performed By: #### L 500.4050, L100.0500 ####[facility] [address] [place], [address] Urea nitrogen [Mass/Vol] 11 mg/dL Normal 7-18 [facility] Comment on above: Order Comment: 303.2 Performed By: #### L 500.4050, L100.0500 ####[facility] [address] [place], [address] Erythrocyte distribution wid th (RBC) [Ratio]Ordered By: Deep Dela Cruz on 05-22-2024 Erythrocyte distribution width (RBC) [Entitic vol] 53.6 fL High 35.1-43.9 [facility] Erythrocyte distribution wid th ratioOrdered By: Deep Dela Cruz on 05-22-2024 Erythrocyte distribution width (RBC) [Ratio] 15.4 % High 11.6-14.6 [facility] Estimated glomerular filtrat ion rate (GFR) AmericanOrdered By: Deep Dela Cruz on 05-22-2024 Estimated GFR (MDRD) Amer 149 mL/min >60 [facility] Comment on above: GFR Calc Glomerular filtration rate ( GFR) estimationOrdered By: Deep Dela Cruz on 05-22-2024 Estimated GFR (MDRD) Non-Af Amer 124 mL/min >60 [facility] Comment on above: Non- GFR Calc Glucose measurementOrdered B y: Deep Dela Cruz on 05-22-2024 Glucose [Mass/Vol] 102 mg/dL 74-106 [facility] Comment on above: Fasting Glucose resu lt from 100 to 125 mg/dL suggests IMPAIRED HOMEOSTASIS per A.D.A. criteria. Hematocrit Auto (Bld) [Volum e fraction]Ordered By: Deep Dela Cruz on 05-22-2024 Hematocrit (Bld) [Volume fraction] 26.4 % Low 37-47 [facility] Hemoglobin measurementOrdere d By: Deep Dela Cruz on 05-22-2024 Hemoglobin (Bld) [Mass/Vol] 8.0 g/dL Low 12.0-15.0 [facility] Laboratory - Chemistry and C hemistry - challengeOrdered By: Deep Dela Cruz on 05-22-2024 AST [Catalytic activity/Vol] 19 U/L 15-37 [facility] Comment on above: Slight Hemolysis, Re sult may be falsely increased. MCV (mean corpuscular volume ) determinationOrdered By: Deep Dela Cruz on 05-22-2024 MCV (RBC) [Entitic vol] 95.3 fL 81-99 [facility] Mean corpuscular hemoglobin (MCH) determinationOrdered By: Deep Dela Cruz on 05-22-2024 MCH (RBC) [Entitic mass] 28.9 pg 27.0-32.0 [facility] Mean corpuscular hemoglobin concentration (MCHC) determinationOrdered By: Deep Dela Cruz on 05-22-2024 MCHC (RBC) [Mass/Vol] 30.3 g/dL Low 32-36 [facility] Mean platelet volume determi nationOrdered By: Deep Dela Cruz on 05-22-2024 Platelet mean volume (Bld) [Entitic vol] 10.0 fL 6.2-12.0 [facility] Platelet countOrdered By: Fried on 05-22-2024 Platelets (Bld) [#/Vol] 484 10*3/uL High 150-450 [facility] Potassium measurementOrdered By: Deep Dela Cruz on 05-22-2024 Potassium [Moles/Vol] 4.0 mmol/L 3.5-5.1 [facility] Comment on above: Slight Hemolysis, Re sult may be falsely increased. RBC Auto (Bld) [#/Vol]Ordere d By: Deep Dela Cruz on 05-22-2024 RBC (Bld) [#/Vol] 2.77 10*6/uL Low 4.2-5.4 [facility] Serum anion gap measurementO rdered By: Deep Dela Cruz on 05-22-2024 Anion gap [Moles/Vol] 5 mmol/L 5-15 [facility] Serum globulin measurementOr dered By: Deep Dela Cruz on 05-22-2024 Globulin (S) [Mass/Vol] 3.8 g/dL 2.2-4.2 [facility] Serum or plasma alanine wilson otransferase (ALT) measurementOrdered By: Deep Dela Cruz on 05-22-2024 ALT [Catalytic activity/Vol] 10 U/L Low 13-56 [facility] Serum or plasma albumin jessi urement (mass/volume)Ordered By: Deep Dela Cruz on 05-22-2024 Albumin [Mass/Vol] 1.8 g/dL Low 3.2-5.0 [facility] Serum or plasma alkaline jero sphatase measurementOrdered By: Deep Dela Cruz on 05-22-2024 ALP [Catalytic activity/Vol] 141 U/L High 45-117 [facility] Serum or plasma calcium jessi urement (mass/volume)Ordered By: Deep Dela Cruz on 05-22-2024 Calcium [Mass/Vol] 8.2 mg/dL Low 8.5-10.1 [facility] Serum or plasma creatinine m easurement (mass/volume)Ordered By: Deep Dela Cruz on 05-22-2024 Creatinine [Mass/Vol] 0.51 mg/dL Low 0.55-1.02 [facility] Comment on above: The validity of the calculated GFR & GFRAA in patients over 70 years has not been determined. Clinical correlation is essential. Serum or plasma urea nitroge n measurement (mass/volume)Ordered By: Deep Dela Cruz on 05-22-2024 Urea nitrogen [Mass/Vol] 11 mg/dL 7-18 [facility] [facility] Sodium levelOrdered By: Deep Dela Cruz on 05-22-2024 Sodium [Moles/Vol] 137 mmol/L 136-145 [facility] Total proteinOrdered By: Janet Dela Cruz on 05-22-2024 Protein [Mass/Vol] 5.6 g/dL Low 6.4-8.2 [facility] Urine cultureOrdered By: Janet Dela Cruz on 05-22-2024 Bacteria identified Cx Nom (U) ESBL Escherichia coli Abnormal [facility] Bacteria identified Cx Nom (U) Presumptive Lactobacillus sp. Abnormal [facility] White blood cell (WBC) count Ordered By: Deep Dela Cruz on 05-22-2024 WBC (Bld) [#/Vol] 8.0 10*3/uL 4.4-11.0 [facility] Basic metabolic 2000 panelon 05-19-2024 Anion gap [Moles/Vol] 9 mmol/L Normal 8-15 [facility] Comment on above: Order Comment: Speci men Type: BLOOD SPECIMENOrdering Facility: [facility] Address: [address] [place] [address] Performed By: #### 2 4321-2 ####[facility]ATORYCLIA [id number] [place] [address] [place] Calcium [Mass/Vol] 8.1 mg/dL Low 8.5-10.2 [facility] Comment on above: Order Comment: Speci men Type: BLOOD SPECIMENOrdering Facility: [facility] Address: [address] [place] [address] Performed By: #### 2 4321-2 ####[facility]ORATORYCLIA [id number] [place] [address] [place] Chloride [Moles/Vol] 99 mmol/L Normal 98-107 [facility] Comment on above: Order Comment: Speci men Type: BLOOD SPECIMENOrdering Facility: [facility] Address: [address] [place] [address] Performed By: #### 2 4321-2 ####[facility]ORATORYCLIA [id number] [place] [address] [place] CO2 [Moles/Vol] 27 mmol/L Normal 22-30 [facility] Comment on above: Order Comment: Speci men Type: BLOOD SPECIMENOrdering Facility: [facility] Address: [address] [place] [address] Performed By: #### 2 4321-2 ####[facility]ATORYCLIA [id number] [place] [address] [place] Creatinine [Mass/Vol] 0.50 mg/dL Low 0.58-0.96 [facility] Comment on above: Order Comment: Speci men Type: BLOOD SPECIMENOrdering Facility: [facility] Address: [address] [place] [address] Performed By: #### 2 4321-2 ####[facility]ORATORYCLIA [id number] [place] [address] [place] Creatinine and Glomerular filtration rate.predicted panel (S/P/Bld) 94 mL/min/1.73m??? Normal >=60 [facility] Comment on above: Order Comment: Helen rg Type: BLOOD SPECIMENOrdering Facility: [facility] Address: [address] [place] [address] Result Comment: Kaylene mated Glomerular Filtration Rate [...] actual GFR. Performed By: #### 2 4321-2 ####[facility]ORATORYCLIA [id number] [place] [address] [place] Glucose [Mass/Vol] 106 mg/dL High 74-99 [facility] Comment on above: Order Comment: Helen rg Type: BLOOD SPECIMENOrdering Facility: [facility] Address: [address] [place] [address] Result Comment: The [place] [employer] (ADA) provides guidance for cutoff [...] Standards of Medical Care in Diabetes 2016, [place] [employer]. Diabetes Care. 2016.39(Suppl 1). Performed By: #### 2 4321-2 ####[facility]ORATORYCLIA [id number] [place] [id number] [place] Potassium [Moles/Vol] 3.8 mmol/L Normal 3.7-5.1 [facility] Comment on above: Order Comment: Speci men Type: BLOOD SPECIMENOrdering Facility: [facility] Address: [address] [place] [address] Performed By: #### 2 4321-2 ####[facility]ORATORYCLIA [id number] [address] [place] Sodium [Moles/Vol] 135 mmol/L Low 136-144 [facility] Comment on above: Order Comment: Speci men Type: BLOOD SPECIMENOrdering Facility: [facility] Address: [address] [place] [address] Performed By: #### 2 4321-2 ####[facility]ORATORYCLIA [id number] [address] STATES [facility] Urea nitrogen [Mass/Vol] 13 mg/dL Normal 7-21 [facility] Comment on above: Order Comment: Speci men Type: BLOOD SPECIMENOrdering Facility: [facility] Address: [address] [place] [address] Performed By: #### 2 4321-2 ####[facility]ORATORYCLIA [id number] [address] OF [facility] CASE MANAGEMon 05-19-2024 CASE MANAGEM Normal [facility] CBC panel Auto (Bld)on 05-19 Erythrocyte distribution width (RBC) [Ratio] 15.6 % High 11.5-15.0 [facility] Comment on above: Order Comment: Speci men Type: BLOOD SPECIMENOrdering Facility: [facility] Address: [address] [place] [address] Performed By: #### 5 8410-2 ####[facility]ORATORYCLIA [id number] [address] Hematocrit (Bld) [Volume fraction] 25.5 % Low 36.0-46.0 [facility] Comment on above: Order Comment: Speci men Type: BLOOD SPECIMENOrdering Facility: [facility] Address: [address] [place] [address] Performed By: #### 5 8410-2 ####[facility]ORATORYCLIA [id number] [address] Hemoglobin (Bld) [Mass/Vol] 8.0 g/dL Low 11.5-15.5 [facility] Comment on above: Order Comment: Speci men Type: BLOOD SPECIMENOrdering Facility: [facility] Address: [address] [place] [address] Performed By: #### 5 8410-2 ####[facility]ORATORYCLIA [id number] [address] MCH (RBC) [Entitic mass] 30.3 pg Normal 26.0-34.0 [facility] Comment on above: Order Comment: Speci men Type: BLOOD SPECIMENOrdering Facility: [facility] Address: [address] [place] [address] Performed By: #### 5 8410-2 ####[facility]ORATORYCLIA [id number] [address] MCHC (RBC) [Mass/Vol] 31.4 g/dL Normal 30.5-36.0 [facility] Comment on above: Order Comment: Speci men Type: BLOOD SPECIMENOrdering Facility: [facility] Address: [address] [place] [address] Performed By: #### 5 8410-2 ####[facility]ORATORYCLIA [id number] [address] MCV (RBC) [Entitic vol] 96.6 fL Normal 80.0-100.0 [facility] Comment on above: Order Comment: Speci men Type: BLOOD SPECIMENOrdering Facility: [facility] Address: [address] [place] [address] Performed By: #### 5 8410-2 ####[facility]ORATORYCLIA [id number] [address] Nucleated RBC (Bld) [#/Vol] 10*3/uL Normal <0.01 [facility] Comment on above: Order Comment: Speci men Type: BLOOD SPECIMENOrdering Facility: [facility] Address: [address] [place] [address] Performed By: #### 5 8410-2 ####[facility]ORATORYCLIA [id number] [address] [place] Platelet mean volume (Bld) [Entitic vol] 10.0 fL Normal 9.0-12.7 [facility] Comment on above: Order Comment: Speci men Type: BLOOD SPECIMENOrdering Facility: [facility] Address: [address] [place] [address] Performed By: #### 5 8410-2 ####[facility]ORATORYCLIA [id number] [address] [place] Platelets (Bld) [#/Vol] 525 10*3/uL High 150-400 [facility] Comment on above: Order Comment: Speci men Type: BLOOD SPECIMENOrdering Facility: [facility] Address: [address] [place] [address] Performed By: #### 5 8410-2 ####[facility]ORATORYCLIA [id number] [place] [address] [place] RBC (Bld) [#/Vol] 2.64 10*6/uL Low 3.90-5.20 [facility] Comment on above: Order Comment: Speci men Type: BLOOD SPECIMENOrdering Facility: [facility] Address: [address] [place] [address] Performed By: #### 5 8410-2 ####[facility]ORATORYCLIA [id number] [address] [place] WBC (Bld) [#/Vol] 9.85 10*3/uL Normal 3.70-11.00 [facility] Comment on above: Order Comment: Speci men Type: BLOOD SPECIMENOrdering Facility: [facility] Address: [address] [place] [address] Performed By: #### 5 8410-2 ####[facility]ORATORYCLIA [id number] [place] [address] [place] CNDSon 05-19-2024 CNDS Normal [facility] THERAPY NTon 05-19-2024 THERAPY NT Normal [facility] THERAPY NT Normal [facility] Basic metabolic 2000 panelon 05-18-2024 Anion gap [Moles/Vol] 11 mmol/L Normal 8-15 [facility] Comment on above: Order Comment: Speci men Type: BLOOD SPECIMENOrdering Facility: [facility] Address: [address] [place] [address] Performed By: #### 2 4321-2 ####[facility]ORATORYCLIA [id number] [place] [address] [place] Calcium [Mass/Vol] 8.0 mg/dL Low 8.5-10.2 [facility] Comment on above: Order Comment: Speci men Type: BLOOD SPECIMENOrdering Facility: [facility] Address: [address] [place] [address] Performed By: #### 2 4321-2 ####[facility]ORATORYCLIA [id number] [place] [address] [place] Chloride [Moles/Vol] 98 mmol/L Normal 98-107 [facility] Comment on above: Order Comment: Speci men Type: BLOOD SPECIMENOrdering Facility: [facility] Address: [address] [place] [address] Performed By: #### 2 4321-2 ####[facility]ORATORYCLIA [id number] [place] [address] [place] CO2 [Moles/Vol] 25 mmol/L Normal 22-30 [facility] Comment on above: Order Comment: Speci men Type: BLOOD SPECIMENOrdering Facility: [facility] Address: [address] [place] [address] Performed By: #### 2 4321-2 ####[facility]ORATORYCLIA [id number] [place] [address] [place] Creatinine [Mass/Vol] 0.52 mg/dL Low 0.58-0.96 [facility] Comment on above: Order Comment: Helen rg Type: BLOOD SPECIMENOrdering Facility: [facility] Address: [address] [place] [address] Performed By: #### 2 4321-2 ####[facility]ORATORYCLIA [id number] [address] [place] Creatinine and Glomerular filtration rate.predicted panel (S/P/Bld) 93 mL/min/1.73m??? Normal >=60 [facility] Comment on above: Order Comment: Bernardomigel rg Type: BLOOD SPECIMENOrdering Facility: [facility] Address: [address] [place] [address] Result Comment: Kaylene mated Glomerular Filtration Rate [...] actual GFR. Performed By: #### 2 4321-2 ####[facility]ORATORYCLIA [id number] [place] [address] [place] Glucose [Mass/Vol] 116 mg/dL High 74-99 [facility] Comment on above: Order Comment: Helen rg Type: BLOOD SPECIMENOrdering Facility: [facility] Address: [address] [place] [address] Result Comment: The [employer] Diabetes [employer] (ADA) provides guidance for cutoff [...] Standards of Medical Care in Diabetes 2016, [place] [employer]. Diabetes Care. 2016.39(Suppl 1). Performed By: #### 2 4321-2 ####[facility]ORATORYCLIA [id number] [place] [address] [place] Potassium [Moles/Vol] 3.8 mmol/L Normal 3.7-5.1 [facility] Comment on above: Order Comment: Speci men Type: BLOOD SPECIMENOrdering Facility: [facility] Address: [address] [place] [address] Performed By: #### 2 4321-2 ####[facility]ORATORYCLIA [id number] [place] [address] [place] Sodium [Moles/Vol] 134 mmol/L Low 136-144 [facility] Comment on above: Order Comment: Speci men Type: BLOOD SPECIMENOrdering Facility: [facility] Address: [address] [place] [address] Performed By: #### 2 4321-2 ####[facility]ORATORYCLIA [id number] [address] [place] Urea nitrogen [Mass/Vol] 13 mg/dL Normal 7-21 [facility] Comment on above: Order Comment: Speci men Type: BLOOD SPECIMENOrdering Facility: [facility] Address: [address] [place] [address] Performed By: #### 2 4321-2 ####[facility]ORATORYCLIA [id number] [address] [place] CASE MANAGEMon 05-18-2024 CASE MANAGEM Normal [facility] CASE MANAGEM Normal [facility] CBC panel Auto (Bld)on 05-18 Erythrocyte distribution width (RBC) [Ratio] 15.0 % Normal 11.5-15.0 [facility] Comment on above: Order Comment: Speci men Type: BLOOD SPECIMENOrdering Facility: [facility] Address: [address] [place] [address] Performed By: #### 5 8410-2 ####[facility]ORATORYCLIA [id number] [address] [place] Hematocrit (Bld) [Volume fraction] 27.1 % Low 36.0-46.0 [facility] Comment on above: Order Comment: Speci men Type: BLOOD SPECIMENOrdering Facility: [facility] Address: [address] [place] [address] Performed By: #### 5 8410-2 ####[facility]ATORYCLIA [id number] [address] [place] Hemoglobin (Bld) [Mass/Vol] 8.3 g/dL Low 11.5-15.5 [facility] Comment on above: Order Comment: Speci men Type: BLOOD SPECIMENOrdering Facility: [facility] Address: [address] [place] [address] Performed By: #### 5 8410-2 ####[facility]ORATORYCLIA [id number] [address] [place] MCH (RBC) [Entitic mass] 28.9 pg Normal 26.0-34.0 [facility] Comment on above: Order Comment: Speci men Type: BLOOD SPECIMENOrdering Facility: [facility] Address: [address] [place] [address] Performed By: #### 5 8410-2 ####[facility]ORATORYCLIA [id number] [address] [place] MCHC (RBC) [Mass/Vol] 30.6 g/dL Normal 30.5-36.0 [facility] Comment on above: Order Comment: Speci men Type: BLOOD SPECIMENOrdering Facility: [facility] Address: [address] [place] [address] Performed By: #### 5 8410-2 ####[facility]ORATORYCLIA [id number] [place] [address] [place] MCV (RBC) [Entitic vol] 94.4 fL Normal 80.0-100.0 [facility] Comment on above: Order Comment: Speci men Type: BLOOD SPECIMENOrdering Facility: [facility] Address: [address] [place] [address] Performed By: #### 5 8410-2 ####[facility]ORATORYCLIA [id number] [place] [address] [place] Nucleated RBC (Bld) [#/Vol] 0.03 10*3/uL High <0.01 [facility] Comment on above: Order Comment: Speci men Type: BLOOD SPECIMENOrdering Facility: [facility] Address: [address] [place] [address] Performed By: #### 5 8410-2 ####[facility]ORATORYCLIA [id number] [address] [place] Platelet mean volume (Bld) [Entitic vol] 9.9 fL Normal 9.0-12.7 [facility] Comment on above: Order Comment: Speci men Type: BLOOD SPECIMENOrdering Facility: [facility] Address: [address] [place] [address] Performed By: #### 5 8410-2 ####[facility]ATORYCLIA [id number] [address] [place] Platelets (Bld) [#/Vol] 567 10*3/uL High 150-400 [facility] Comment on above: Order Comment: Speci men Type: BLOOD SPECIMENOrdering Facility: [facility] Address: [address] [place] [address] Performed By: #### 5 8410-2 ####[facility]ATORYCLIA [id number] [place] [address] [place] RBC (Bld) [#/Vol] 2.87 10*6/uL Low 3.90-5.20 [facility] Comment on above: Order Comment: Speci men Type: BLOOD SPECIMENOrdering Facility: [facility] Address: [address] [place] [address] Performed By: #### 5 8410-2 ####[facility]ATORYCLIA [id number] [address] [place] WBC (Bld) [#/Vol] 11.98 10*3/uL High 3.70-11.00 [facility] Comment on above: Order Comment: Speci men Type: BLOOD SPECIMENOrdering Facility: [facility] Address: [address] [place] [address] Performed By: #### 5 8410-2 ####[facility]ORATORYCLIA [id number] [address] OF [facility] THERAPY NTon 05-18-2024 THERAPY NT Normal [facility] URINALYSIS, REFLEX MICROSCOP ICon 05-18-2024 Bacteria LM.HPF (Urine sed) [#/Area] Rare Abnormal None Seen [facility] Comment on above: Order Comment: Speci men Type: URINE SPECIMENOrdering Facility: [facility] Address: [address] [place] [address] Performed By: #### L [id number] ####[facility]ORATORYCLIA [id number] [address] STATES [facility] Bilirubin Ql (U) Negative Normal Negative [facility] Comment on above: Order Comment: Speci men Type: URINE SPECIMENOrdering Facility: [facility] Address: [address] [place] [address] Performed By: #### L [id number] ####[facility]ORATORYCLIA [id number] [address] Clarity (Unsp spec) Dense Turbid Abnormal Clear [facility] Comment on above: Order Comment: Speci men Type: URINE SPECIMENOrdering Facility: [facility] Address: [address] [place] [address] Performed By: #### L [id number] ####[facility]ORATORYCLIA [id number] [address] STATES [facility] Color (U) Plaza Abnormal yellow [facility] Comment on above: Order Comment: Speci men Type: URINE SPECIMENOrdering Facility: [facility] Address: [address] [place] [address] Performed By: #### L [id number] ####[facility]ATORYCLIA [id number] [address] [place] Glucose Test strip (U) [Mass/Vol] Negative Normal Trace, Negative [facility] Comment on above: Order Comment: Speci men Type: URINE SPECIMENOrdering Facility: [facility] Address: [address] [place] [address] Performed By: #### L [id number] ####[facility]ATORYCLIA [id number] [address] [place] Hemoglobin Ql (U) 3+ Abnormal Negative, Trace [facility] Comment on above: Order Comment: Speci men Type: URINE SPECIMENOrdering Facility: [facility] Address: [address] [place] [address] Performed By: #### L [id number] ####[facility]ATORYCLIA [id number] [address] Ketones Ql (U) Negative Normal Negative, Trace [facility] Comment on above: Order Comment: Speci men Type: URINE SPECIMENOrdering Facility: [facility] Address: [address] [place] [address] Performed By: #### L [id number] ####[facility]ATORYCLIA [id number] [address] OF [facility] Leukocyte esterase Test strip Ql (U) 500 Jarrett/uL Abnormal Negative, 25 Jarrett/uL [facility] Comment on above: Order Comment: Speci men Type: URINE SPECIMENOrdering Facility: [facility] Address: [address] [place] [address] Performed By: #### L [id number] ####[facility]ATORYCLIA [id number] [address] [place] Nitrite Ql (U) 2+ Abnormal Negative [facility] Comment on above: Order Comment: Speci men Type: URINE SPECIMENOrdering Facility: [facility] Address: [address] [place] [address] Performed By: #### L [id number] ####[facility]ORATORYCLIA [id number] [address] [place] pH (U) 6.5 [pH] Normal 5.0-8.0 [facility] Comment on above: Order Comment: Speci men Type: URINE SPECIMENOrdering Facility: [facility] Address: [address] [place] [address] Performed By: #### L [id number] ####[facility]ATORYCLIA [id number] [address] Protein (U) [Mass/Vol] 2+ Abnormal Trace , Negative [facility] Comment on above: Order Comment: Speci men Type: URINE SPECIMENOrdering Facility: [facility] Address: [address] [place] [address] Performed By: #### L [id number] ####[facility]ORATORYCLIA [id number] [address] RBC LM.HPF (Urine sed) [#/Area] /[HPF] Abnormal 0-3 /HPF [facility] Comment on above: Order Comment: Speci men Type: URINE SPECIMENOrdering Facility: [facility] Address: [address] [place] [address] Performed By: #### L [id number] ####[facility]ATORYCLIA [id number] [address] Specific gravity (U) [Rel density] 1.014 Normal 1.005-1.030 [facility] Comment on above: Order Comment: Speci men Type: URINE SPECIMENOrdering Facility: [facility] Address: [address] [place] [address] Performed By: #### L [id number] ####[facility]ATORYCLIA [id number] [address] Urobilinogen Ql (U) Normal Normal Normal [facility] Comment on above: Order Comment: Speci men Type: URINE SPECIMENOrdering Facility: [facility] Address: [address] [place] [address] Performed By: #### L [id number] ####[facility]ORATORYCLIA [id number] [address] [place] WBC LM.HPF (Urine sed) [#/Area] /[HPF] Abnormal 0-5 /HPF [facility] Comment on above: Order Comment: Speci men Type: URINE SPECIMENOrdering Facility: [facility] Address: [address] [place] [address] Performed By: #### L [id number] ####[facility]ORATORYCLIA [id number] [place] [address] [place] US DVT LOWER BILon US DVT LOWER POLO Normal [facility] Urinalysis complete panel (U )on 05-18-2024 Bilirubin Ql (U) Normal [facility] Comment on above: Order Comment: Speci men Type: URINE SPECIMENOrdering Facility: [facility] Address: [address] [place] [address] Result Comment: Unab le to quantitate due to possible contamination. Performed By: #### 2 4356-8 ####[facility]ATORYCLIA [id number] [address] [place] Clarity (Unsp spec) Turbid Abnormal Clear [facility] Comment on above: Order Comment: Speci men Type: URINE SPECIMENOrdering Facility: [facility] Address: [address] [place] [address] Performed By: #### 2 4356-8 ####[facility]ATORYCLIA [id number] [address] [place] Color (U) Yellow Normal Yellow [facility] Comment on above: Order Comment: Speci men Type: URINE SPECIMENOrdering Facility: [facility] Address: [address] [place] [address] Performed By: #### 2 4356-8 ####[facility] LABORATORYCLIA [id number] [address] [place] Glucose Test strip (U) [Mass/Vol] Normal [facility] Comment on above: Order Comment: Speci men Type: URINE SPECIMENOrdering Facility: [facility] Address: [address] [place] [address] Result Comment: Unab le to quantitate due to possible contamination. Performed By: #### 2 4356-8 ####[facility] LABORATORYCLIA [id number] [place] [address] [place] Hemoglobin Ql (U) Normal [facility] Comment on above: Order Comment: Speci men Type: URINE SPECIMENOrdering Facility: [facility] Address: [address] [address] [place] [address] Result Comment: Unab le to quantitate due to possible contamination. Performed By: #### 2 4356-8 ####[facility]ATORYCLIA [id number] [place] [address] [place] Ketones Ql (U) Normal [facility] Comment on above: Order Comment: Speci men Type: URINE SPECIMENOrdering Facility: [facility] Address: [address] [place] [address] Result Comment: Unab le to quantitate due to possible contamination. Performed By: #### 2 4356-8 ####[facility]ORATORYCLIA [id number] [address] Leukocyte esterase Test strip Ql (U) Normal [facility] Comment on above: Order Comment: Speci men Type: URINE SPECIMENOrdering Facility: [facility] Address: [address] [place] [address] Result Comment: Unab le to quantitate due to possible contamination. Performed By: #### 2 4356-8 ####[facility]ORATORYCLIA [id number] [address] [place] Nitrite Ql (U) Normal [facility] Comment on above: Order Comment: Speci men Type: URINE SPECIMENOrdering Facility: [facility] Address: [address] [place] [address] Result Comment: Unab le to quantitate due to possible contamination. Performed By: #### 2 4356-8 ####[facility]ATORYCLIA [id number] [address] [place] pH (U) Normal [facility] Comment on above: Order Comment: Speci men Type: URINE SPECIMENOrdering Facility: [facility] Address: [address] [place] [address] Result Comment: Unab le to quantitate due to possible contamination. Performed By: #### 2 4356-8 ####[facility]ORATORYCLIA [id number] [address] STATES [facility] Protein (U) [Mass/Vol] Normal [facility] Comment on above: Order Comment: Speci men Type: URINE SPECIMENOrdering Facility: [facility] Address: [address] [place] [address] Result Comment: Unab le to quantitate due to possible contamination. Performed By: #### 2 4356-8 ####[facility]ATORYCLIA [id number] [address] [place] RBC LM.HPF (Urine sed) [#/Area] /[HPF] Abnormal 0-3 /HPF [facility] Comment on above: Order Comment: Speci men Type: URINE SPECIMENOrdering Facility: [facility] Address: [address] [place] [address] Performed By: #### 2 4356-8 ####[facility]ORATORYCLIA [id number] [address] Specific gravity (U) [Rel density] Normal [facility] Comment on above: Order Comment: Speci men Type: URINE SPECIMENOrdering Facility: [facility] Address: [address] [place] [address] Result Comment: Unab le to quantitate due to possible contamination. Performed By: #### 2 4356-8 ####[facility]ATORYCLIA [id number] [address] Urobilinogen Ql (U) Normal [facility] Comment on above: Order Comment: Speci men Type: URINE SPECIMENOrdering Facility: [facility] Address: [address] [place] [address] Result Comment: Unab le to quantitate due to possible contamination. Performed By: #### 2 4356-8 ####[facility]ATORYCLIA [id number] [address] [place] WBC LM.HPF (Urine sed) [#/Area] /[HPF] Abnormal 0-5 /HPF [facility] Comment on above: Order Comment: Speci men Type: URINE SPECIMENOrdering Facility: [facility] Address: [facility] [place] [address] Performed By: #### 2 4356-8 ####[facility]ORATORYCLIA [id number] [place] [address] [place] Basic metabolic 2000 panelon 05-17-2024 Anion gap [Moles/Vol] 9 mmol/L Normal 8-15 [facility] Comment on above: Order Comment: Speci men Type: BLOOD SPECIMENOrdering Facility: [facility] Address: [address] [place] [address] Performed By: #### 2 4321-2 ####[facility]ATORYCLIA [id number] [place] [address] [place] Calcium [Mass/Vol] 7.7 mg/dL Low 8.5-10.2 [facility] Comment on above: Order Comment: Speci men Type: BLOOD SPECIMENOrdering Facility: [facility] Address: [address] [place] [address] Performed By: #### 2 4321-2 ####[facility]ATORYCLIA [id number] [place] [address] [place] Chloride [Moles/Vol] 100 mmol/L Normal 98-107 [facility] Comment on above: Order Comment: Speci men Type: BLOOD SPECIMENOrdering Facility: [facility] Address: [address] [place] [address] Performed By: #### 2 4321-2 ####[facility]ORATORYCLIA [id number] [place] [address] [place] CO2 [Moles/Vol] 27 mmol/L Normal 22-30 [facility] Comment on above: Order Comment: Speci men Type: BLOOD SPECIMENOrdering Facility: [facility] Address: [address] [place] [address] Performed By: #### 2 4321-2 ####[facility]ORATORYCLIA [id number] [address] [place] Creatinine [Mass/Vol] 0.38 mg/dL Low 0.58-0.96 [facility] Comment on above: Order Comment: Helen rg Type: BLOOD SPECIMENOrdering Facility: [facility] Address: [address] [place] [address] Performed By: #### 2 4321-2 ####[facility]ORATORYCLIA [id number] [address] Creatinine and Glomerular filtration rate.predicted panel (S/P/Bld) 100 mL/min/1.73m??? Normal >=60 [facility] Comment on above: Order Comment: Helen rg Type: BLOOD SPECIMENOrdering Facility: [facility] Address: [address] [place] [address] Result Comment: Kaylene mated Glomerular Filtration Rate [...] actual GFR. Performed By: #### 2 4321-2 ####[facility]ORATORYCLIA [id number] [address] [place] Glucose [Mass/Vol] 105 mg/dL High 74-99 [facility] Comment on above: Order Comment: Helen rg Type: BLOOD SPECIMENOrdering Facility: [facility] Address: [address] [place] [address] Result Comment: The [place] [employer] (ADA) provides guidance for cutoff [...] Standards of Medical Care in Diabetes 2016, [place] [employer]. Diabetes Care. 2016.39(Suppl 1). Performed By: #### 2 4321-2 ####[facility]ORATORYCLIA [id number] [address] STATES OF [facility] Potassium [Moles/Vol] 4.5 mmol/L Normal 3.7-5.1 [facility] Comment on above: Order Comment: Speci men Type: BLOOD SPECIMENOrdering Facility: [facility] Address: [address] [place] [address] Performed By: #### 2 4321-2 ####[facility]ORATORYCLIA [id number] [address] OF [facility] Sodium [Moles/Vol] 136 mmol/L Normal 136-144 [facility] Comment on above: Order Comment: Speci men Type: BLOOD SPECIMENOrdering Facility: [facility] Address: [address] [place] [address] Performed By: #### 2 4321-2 ####[facility]ORATORYCLIA [id number] [address] STATES OF [facility] Urea nitrogen [Mass/Vol] 16 mg/dL Normal 7-21 [facility] Comment on above: Order Comment: Speci men Type: BLOOD SPECIMENOrdering Facility: [facility] Address: [address] [place] [address] Performed By: #### 2 4321-2 ####[facility]ORATORYCLIA [id number] [address] OF [facility] CASE MANAGEMon 05-17-2024 CASE MANAGEM Normal [facility] CBC panel Auto (Bld)on 05-17 Erythrocyte distribution width (RBC) [Ratio] 15.3 % High 11.5-15.0 [facility] Comment on above: Order Comment: Speci men Type: BLOOD SPECIMENOrdering Facility: [facility] Address: [address] [place] [address] Performed By: #### 5 8410-2 ####[facility]ORATORYCLIA [id number] [address] Hematocrit (Bld) [Volume fraction] 26.3 % Low 36.0-46.0 [facility] Comment on above: Order Comment: Speci men Type: BLOOD SPECIMENOrdering Facility: [facility] Address: [address] [place] [address] Performed By: #### 5 8410-2 ####[facility]ORATORYCLIA [id number] [address] OF [facility] Hemoglobin (Bld) [Mass/Vol] 8.0 g/dL Low 11.5-15.5 [facility] Comment on above: Order Comment: Speci men Type: BLOOD SPECIMENOrdering Facility: [facility] Address: [address] [place] [address] Performed By: #### 5 8410-2 ####[facility]ORATORYCLIA [id number] [address] MCH (RBC) [Entitic mass] 29.1 pg Normal 26.0-34.0 [facility] Comment on above: Order Comment: Speci men Type: BLOOD SPECIMENOrdering Facility: [facility] Address: [address] [place] [address] Performed By: #### 5 8410-2 ####[facility]ORATORYCLIA [id number] [address] [place] MCHC (RBC) [Mass/Vol] 30.4 g/dL Low 30.5-36.0 [facility] Comment on above: Order Comment: Speci men Type: BLOOD SPECIMENOrdering Facility: [facility] Address: [address] [place] [address] Performed By: #### 5 8410-2 ####[facility]ORATORYCLIA [id number] [address] MCV (RBC) [Entitic vol] 95.6 fL Normal 80.0-100.0 [facility] Comment on above: Order Comment: Speci men Type: BLOOD SPECIMENOrdering Facility: [facility] Address: [address] [place] [address] Performed By: #### 5 8410-2 ####[facility]ORATORYCLIA [id number] [address] [place] Nucleated RBC (Bld) [#/Vol] 0.06 10*3/uL High <0.01 [facility] Comment on above: Order Comment: Speci men Type: BLOOD SPECIMENOrdering Facility: [facility] Address: [address] [place] [address] Performed By: #### 5 8410-2 ####[facility]ATORYCLIA [id number] [address] [place] Platelet mean volume (Bld) [Entitic vol] 10.2 fL Normal 9.0-12.7 [facility] Comment on above: Order Comment: Speci men Type: BLOOD SPECIMENOrdering Facility: [facility] Address: [address] [place] [address] Performed By: #### 5 8410-2 ####[facility]ORATORYCLIA [id number] [address] OF [place] Platelets (Bld) [#/Vol] 386 10*3/uL Normal 150-400 [facility] Comment on above: Order Comment: Speci men Type: BLOOD SPECIMENOrdering Facility: [facility] Address: [address] [place] [address] Performed By: #### 5 8410-2 ####[facility]ORATORYCLIA [id number] [address] [place] RBC (Bld) [#/Vol] 2.75 10*6/uL Low 3.90-5.20 [facility] Comment on above: Order Comment: Speci men Type: BLOOD SPECIMENOrdering Facility: [facility] Address: [address] [place] [address] Performed By: #### 5 8410-2 ####[facility]ORATORYCLIA [id number] [place] [address] [place] WBC (Bld) [#/Vol] 9.63 10*3/uL Normal 3.70-11.00 [facility] Comment on above: Order Comment: Speci men Type: BLOOD SPECIMENOrdering Facility: [facility] Address: [address] [place] [address] Performed By: #### 5 8410-2 ####[facility]ORATORYCLIA [id number] [place] [address] [place] Basic metabolic 2000 panelon 05-16-2024 Anion gap [Moles/Vol] 9 mmol/L Normal 8-15 [facility] Comment on above: Order Comment: Speci men Type: BLOOD SPECIMENOrdering Facility: [facility] Address: [address] [place] [address] Performed By: #### 2 4321-2, 55018-4, 2777-1, 81095-5 ####[facility]ORATORYCLIA [id number] [place] [address] [place] Calcium [Mass/Vol] 8.1 mg/dL Low 8.5-10.2 [facility] Comment on above: Order Comment: Speci men Type: BLOOD SPECIMENOrdering Facility: [facility] Address: [address] [place] [address] Performed By: #### 2 4321-2, 85558-6, 277-1, 81995-8 ####[facility]ORATORYCLIA [id number] [place] [address] [place] Chloride [Moles/Vol] 102 mmol/L Normal 98-107 [facility] Comment on above: Order Comment: Speci men Type: BLOOD SPECIMENOrdering Facility: [facility] Address: [address] [place] [address] Performed By: #### 2 4321-2, 32259-6, 2776-1, 42109-6 ####[facility]ORATORYCLIA [id number] [place] [address] [place] CO2 [Moles/Vol] 27 mmol/L Normal 22-30 [facility] Comment on above: Order Comment: Speci men Type: BLOOD SPECIMENOrdering Facility: [facility] Address: [address] [place] [address] Performed By: #### 2 4321-2, 51970-5, 2777-, 41056-9 ####[facility]PITALIA [id number] [place] [id number] [place] Creatinine [Mass/Vol] 0.40 mg/dL Low 0.58-0.96 [facility] Comment on above: Order Comment: Speci men Type: BLOOD SPECIMENOrdering Facility: [facility] Address: [address] [place] [address] Performed By: #### 2 4321-2, 11170-8, 2776-05, 85360-2 ####[facility]ITALIA [id number] [address] OF [place] Creatinine and Glomerular filtration rate.predicted panel (S/P/Bld) 99 mL/min/1.73m??? Normal >=60 [facility] Comment on above: Order Comment: Speci men Type: BLOOD SPECIMENOrdering Facility: [facility] Address: [address] [place] [address] Result Comment: Kaylene mated Glomerular Filtration Rate [...] actual GFR. Performed By: #### 2 4321-2, 57601-8, 277-, 85229-7 ####[facility] LABORATORYIA [id number] [place] [id number] [place] Glucose [Mass/Vol] 93 mg/dL Normal 74-99 [facility] Comment on above: Order Comment: Speci men Type: BLOOD SPECIMENOrdering Facility: [facility] Address: [address] [place] [address] Result Comment: The [place] Diabetes [employer] (ADA) provides guidance for cutoff [...] Standards of Medical Care in Diabetes 2016, [place] [employer]. Diabetes Care. 2016.39(Suppl 1). Performed By: #### 2 4321-2, 11075-2, 7-1, 28599-6 ####[facility]ORATORYCLIA [id number] [place] [address] [place] Potassium [Moles/Vol] 3.8 mmol/L Normal 3.7-5.1 [facility] Comment on above: Order Comment: Specmigel men Type: BLOOD SPECIMENOrdering Facility: [facility] Address: [address] [place] [address] Performed By: #### 2 4321-2, , 2776-1, 69355-6 ####[facility]ORATORYCLIA [id number] [place] [address] [place] Sodium [Moles/Vol] 138 mmol/L Normal 136-144 [facility] Comment on above: Order Comment: Bernardoi men Type: BLOOD SPECIMENOrdering Facility: [facility] Address: [address] [place] [address] Performed By: #### 2 4321-2, , 2776-, 33655-9 ####[facility]ORATORYCLIA [id number] [place] [address] [place] Urea nitrogen [Mass/Vol] 18 mg/dL Normal 7-21 [facility] Comment on above: Order Comment: Speci men Type: BLOOD SPECIMENOrdering Facility: [facility] Address: [address] [place] [address] Performed By: #### 2 4321-2, 93582-6, 2776-1, 89094-5 ####[facility]ORATORYCLIA [id number] [address] [place] CBC panel Auto (Bld)on 05-16 Erythrocyte distribution width (RBC) [Ratio] 15.1 % High 11.5-15.0 [facility] Comment on above: Order Comment: Speci men Type: BLOOD SPECIMENOrdering Facility: [facility] Address: [address] [place] [address] Performed By: #### 5 8410-2 ####[facility]ORATORYCLIA [id number] [address] STATES OF [facility] Hematocrit (Bld) [Volume fraction] 28.4 % Low 36.0-46.0 [facility] Comment on above: Order Comment: Speci men Type: BLOOD SPECIMENOrdering Facility: [facility] Address: [address] [place] [address] Performed By: #### 5 8410-2 ####[facility]ORATORYCLIA [id number] [address] STATES OF [facility] Hemoglobin (Bld) [Mass/Vol] 8.9 g/dL Low 11.5-15.5 [facility] Comment on above: Order Comment: Speci men Type: BLOOD SPECIMENOrdering Facility: [facility] Address: [address] [place] [address] Performed By: #### 5 8410-2 ####[facility]ORATORYCLIA [id number] [address] STATES [facility] MCH (RBC) [Entitic mass] 29.7 pg Normal 26.0-34.0 [facility] Comment on above: Order Comment: Speci men Type: BLOOD SPECIMENOrdering Facility: [facility] Address: [address] [place] [address] Performed By: #### 5 8410-2 ####[facility]ORATORYCLIA [id number] [address] [place] MCHC (RBC) [Mass/Vol] 31.3 g/dL Normal 30.5-36.0 [facility] Comment on above: Order Comment: Speci men Type: BLOOD SPECIMENOrdering Facility: [facility] Address: [address] [place] [address] Performed By: #### 5 8410-2 ####[facility] LABORATORYCLIA [id number] [address] STATES OF [facility] MCV (RBC) [Entitic vol] 94.7 fL Normal 80.0-100.0 [facility] Comment on above: Order Comment: Speci men Type: BLOOD SPECIMENOrdering Facility: [facility] Address: [address] [place] [address] Performed By: #### 5 8410-2 ####[facility]ORATORYCLIA [id number] [address] [place] Nucleated RBC (Bld) [#/Vol] 0.08 10*3/uL High <0.01 [facility] Comment on above: Order Comment: Speci men Type: BLOOD SPECIMENOrdering Facility: [facility] Address: [address] [place] [address] Performed By: #### 5 8410-2 ####[facility]ORATORYCLIA [id number] [address] [place] Platelet mean volume (Bld) [Entitic vol] 10.1 fL Normal 9.0-12.7 [facility] Comment on above: Order Comment: Speci men Type: BLOOD SPECIMENOrdering Facility: [facility] Address: [address] [place] [address] Performed By: #### 5 8410-2 ####[facility]ORATORYCLIA [id number] [address] [place] Platelets (Bld) [#/Vol] 509 10*3/uL High 150-400 [facility] Comment on above: Order Comment: Speci men Type: BLOOD SPECIMENOrdering Facility: [facility] Address: [address] [place] [address] Performed By: #### 5 8410-2 ####[facility]ORATORYCLIA [id number] [address] STATES OF [facility] RBC (Bld) [#/Vol] 3.00 10*6/uL Low 3.90-5.20 [facility] Comment on above: Order Comment: Speci men Type: BLOOD SPECIMENOrdering Facility: [facility] Address: [address] [place] [address] Performed By: #### 5 8410-2 ####[facility]ORATORYCLIA [id number] [address] OF [facility] WBC (Bld) [#/Vol] 11.08 10*3/uL High 3.70-11.00 [facility] Comment on above: Order Comment: Speci men Type: BLOOD SPECIMENOrdering Facility: [facility] Address: [address] [place] [address] Performed By: #### 5 8410-2 ####[facility]ORATORYCLIA [id number] [address] Hepatic function 2000 panelo n 05-16-2024 Albumin [Mass/Vol] 2.4 g/dL Low 3.9-4.9 [facility] Comment on above: Order Comment: Speci men Type: BLOOD SPECIMENOrdering Facility: [facility] Address: [address] [place] [address] Performed By: #### 2 4321-2, 93205-8, 2777-1, 79543-8 ####[facility]ORATORYCLIA [id number] [place] [address] [place] ALP [Catalytic activity/Vol] 119 U/L Normal 34-123 [facility] Comment on above: Order Comment: Speci men Type: BLOOD SPECIMENOrdering Facility: [facility] Address: [address] [place] [address] Performed By: #### 2 4321-2, 63730-4, 2777-1, 08740-8 ####[facility]ORATORYCLIA [id number] [place] [id number] [facility] ALT With P-5'-P [Catalytic activity/Vol] 15 U/L Normal 7-38 [facility] Comment on above: Order Comment: Speci men Type: BLOOD SPECIMENOrdering Facility: [facility] Address: [address] [place] [address] Performed By: #### 2 4321-2, 85435-9, 2776-, 43994-5 ####[facility]ORATORYCLIA [id number] [address] STATES OF [facility] AST With P-5'-P [Catalytic activity/Vol] 15 U/L Normal 13-35 [facility] Comment on above: Order Comment: Speci men Type: BLOOD SPECIMENOrdering Facility: [facility] Address: [address] [place] [address] Performed By: #### 2 4321-2, , 2776-05, 63350-0 ####[facility]ORATORYCLIA [id number] [address] STATES OF [facility] Bilirubin [Mass/Vol] 0.4 mg/dL Normal 0.2-1.3 [facility] Comment on above: Order Comment: Speci men Type: BLOOD SPECIMENOrdering Facility: [facility] Address: [address] [place] [address] Performed By: #### 2 4321-2, , 2776-05, 79175-0 ####[facility]ORATORYCLIA [id number] [address] Bilirubin.conjugated [Mass/Vol] mg/dL Normal <0.2 [facility] Comment on above: Order Comment: Speci men Type: BLOOD SPECIMENOrdering Facility: [facility] Address: [address] [place] [address] Performed By: #### 2 4321-2, , 2776-05, 83624-5 ####[facility]ORATORYCLIA [id number] [address] [place] Protein [Mass/Vol] 5.4 g/dL Low 6.3-8.0 [facility] Comment on above: Order Comment: Speci men Type: BLOOD SPECIMENOrdering Facility: [facility] Address: [address] [place] [address] Performed By: #### 2 4321-2, 84692-7, 2776-1, 32896-7 ####[facility] LABORATORYCLIA [id number] [place] [address] [place] Magnesium SerPl-Fox [facility] Magnesium [Mass/Vol] 1.9 mg/dL Normal 1.7-2.3 [facility] Comment on above: Order Comment: Speci men Type: BLOOD SPECIMENOrdering Facility: [facility] Address: [address] [place] [address] Performed By: #### 2 4321-2, 65584-1, 2776-1, 56202-6 ####[facility] LABORATORYCLIA [id number] [place] [address] [place] Phosphate SerPl-ncon 05-16 Phosphate [Mass/Vol] 3.5 mg/dL Normal 2.7-4.8 [facility] Comment on above: Order Comment: Speci men Type: BLOOD SPECIMENOrdering Facility: [facility] Address: [address] [place] [address] Performed By: #### 2 4321-2, , 277-1, 20598-6 ####[facility] LABORATORYCLIA [id number] [place] [id number] [place] THERAPY NTon 05-16-2024 THERAPY NT Normal [facility] Basic metabolic 2000 panelon 05-15-2024 Anion gap [Moles/Vol] 7 mmol/L Low 8-15 [facility] Comment on above: Order Comment: Speci men Type: BLOOD SPECIMENOrdering Facility: [facility] Address: [address] [place], [place] [address] Performed By: #### 2 777-1, 66243-0, 46808-7 ####[facility]ATORYCLIA [id number] [place] [id number] [place] Calcium [Mass/Vol] 8.2 mg/dL Low 8.5-10.2 [facility] Comment on above: Order Comment: Speci men Type: BLOOD SPECIMENOrdering Facility: [facility] Address: [address] [place] [address] Performed By: #### 2 777-1, , ####[facility] LABORATORYCLIA [id number] [place] [address] [place] Chloride [Moles/Vol] 107 mmol/L Normal 98-107 [facility] Comment on above: Order Comment: Speci men Type: BLOOD SPECIMENOrdering Facility: [facility] Address: [address] [place] [address] Performed By: #### 2 777-1, , ####[facility]ATORYCLIA [id number] [address] STATES [place] CO2 [Moles/Vol] 27 mmol/L Normal 22-30 [facility] Comment on above: Order Comment: Speci men Type: BLOOD SPECIMENOrdering Facility: [facility] Address: [address] [place] [address] Performed By: #### 2 777-1, , ####[facility]ATORYCLIA [id number] [address] OF [place] Creatinine [Mass/Vol] 0.37 mg/dL Low 0.58-0.96 [facility] Comment on above: Order Comment: Speci men Type: BLOOD SPECIMENOrdering Facility: [facility] Address: [address] [place] [address] Performed By: #### 2 777-1, , ####[facility]ATORYCLIA [id number] [address] Creatinine and Glomerular filtration rate.predicted panel (S/P/Bld) 101 mL/min/1.73m??? Normal >=60 [facility] Comment on above: Order Comment: Speci men Type: BLOOD SPECIMENOrdering Facility: [facility] Address: [address] [place] [phone] Result Comment: Kaylene mated Glomerular Filtration Rate [...] actual GFR. Performed By: #### 2 777-1, 29351-4, ####[facility]ORATORYCLIA [id number] [place] [address] [place] Glucose [Mass/Vol] 164 mg/dL High 74-99 [facility] Comment on above: Order Comment: Helen rg Type: BLOOD SPECIMENOrdering Facility: [facility] Address: [address] [place] [address] Result Comment: The [employer] Diabetes Association (ADA) provides guidance for cutoff [...] Standards of Medical Care in Diabetes 2016, [employer] [employer]. Diabetes Care. 2016.39(Suppl 1). Performed By: #### 2 777-1, 09181-3, ####[facility]ORATORYCLIA [id number] [place] [address] [place] Potassium [Moles/Vol] 4.2 mmol/L Normal 3.7-5.1 [facility] Comment on above: Order Comment: Helen rg Type: BLOOD SPECIMENOrdering Facility: [facility] Address: [address] [place] [phone] Performed By: #### 2 777-1, 55177-9, 38383-3 ####[facility]ATORYCLIA [id number] [place] [address] [place] Sodium [Moles/Vol] 141 mmol/L Normal 136-144 [facility] Comment on above: Order Comment: Speci men Type: BLOOD SPECIMENOrdering Facility: [facility] Address: [address] [place] [address] Performed By: #### 2 777-1, 20346-9, ####[facility]ATORYCLIA [id number] [place] [id number] [place] Urea nitrogen [Mass/Vol] 21 mg/dL Normal 7-21 [facility] Comment on above: Order Comment: Speci men Type: BLOOD SPECIMENOrdering Facility: [facility] Address: [address] [place] [address] Performed By: #### 2 777-1, , ####[facility]ORATORYCLIA [id number] [address] [place] CASE MANAGEMon 05-15-2024 CASE MANAGEM Normal [facility] CASE MANAGEM Normal [facility] CASE MANAGEM Normal [facility] CBC panel Auto (Bld)on 05-15 Erythrocyte distribution width (RBC) [Ratio] 15.2 % High 11.5-15.0 [facility] Comment on above: Order Comment: Speci men Type: BLOOD SPECIMENOrdering Facility: [facility] Address: [address] [place] [address] Performed By: #### 5 8410-2 ####[facility]ATORYCLIA [id number] [address] [place] Hematocrit (Bld) [Volume fraction] 28.5 % Low 36.0-46.0 [facility] Comment on above: Order Comment: Speci men Type: BLOOD SPECIMENOrdering Facility: [facility] Address: [address] [place] [address] Performed By: #### 5 8410-2 ####[facility]ORATORYCLIA [id number] [address] STATES OF [facility] Hemoglobin (Bld) [Mass/Vol] 8.7 g/dL Low 11.5-15.5 [facility] Comment on above: Order Comment: Speci men Type: BLOOD SPECIMENOrdering Facility: [facility] Address: [address] [place] [address] Performed By: #### 5 8410-2 ####[facility]ORATORYCLIA [id number] [address] MCH (RBC) [Entitic mass] 29.7 pg Normal 26.0-34.0 [facility] Comment on above: Order Comment: Speci men Type: BLOOD SPECIMENOrdering Facility: [facility] Address: [address] [place] [address] Performed By: #### 5 8410-2 ####[facility]ORATORYCLIA [id number] [address] MCHC (RBC) [Mass/Vol] 30.5 g/dL Normal 30.5-36.0 [facility] Comment on above: Order Comment: Speci men Type: BLOOD SPECIMENOrdering Facility: [facility] Address: [address] [place] [address] Performed By: #### 5 8410-2 ####[facility]ORATORYCLIA [id number] [address] OF [facility] MCV (RBC) [Entitic vol] 97.3 fL Normal 80.0-100.0 [facility] Comment on above: Order Comment: Speci men Type: BLOOD SPECIMENOrdering Facility: [facility] Address: [address] [place] [address] Performed By: #### 5 8410-2 ####[facility]ORATORYCLIA [id number] [address] Nucleated RBC (Bld) [#/Vol] 0.07 10*3/uL High <0.01 [facility] Comment on above: Order Comment: Speci men Type: BLOOD SPECIMENOrdering Facility: [facility] Address: [address] [place] [address] Performed By: #### 5 8410-2 ####[facility]ORATORYCLIA [id number] [address] STATES [facility] Platelet mean volume (Bld) [Entitic vol] 10.2 fL Normal 9.0-12.7 [facility] Comment on above: Order Comment: Speci men Type: BLOOD SPECIMENOrdering Facility: [facility] Address: [address] [place] [address] Performed By: #### 5 8410-2 ####[facility]ORATORYCLIA [id number] [address] OF [place] Platelets (Bld) [#/Vol] 485 10*3/uL High 150-400 [facility] Comment on above: Order Comment: Speci men Type: BLOOD SPECIMENOrdering Facility: [facility] Address: [address] [place] [address] Performed By: #### 5 8410-2 ####[facility]ORATORYCLIA [id number] [address] [place] RBC (Bld) [#/Vol] 2.93 10*6/uL Low 3.90-5.20 [facility] Comment on above: Order Comment: Speci men Type: BLOOD SPECIMENOrdering Facility: [facility] Address: [address] [place] [address] Performed By: #### 5 8410-2 ####[facility]ORATORYCLIA [id number] [address] [place] WBC (Bld) [#/Vol] 11.61 10*3/uL High 3.70-11.00 [facility] Comment on above: Order Comment: Speci men Type: BLOOD SPECIMENOrdering Facility: [facility] Address: [address] [place] [address] Performed By: #### 5 8410-2 ####[facility]ORATORYCLIA [id number] [address] CONSULT PROGon 12-16-2024 CONSULT PROG Normal [facility] Magnesium SerPl-mCncon 05-15 Magnesium [Mass/Vol] 2.0 mg/dL Normal 1.7-2.3 [facility] Comment on above: Order Comment: Speci men Type: BLOOD SPECIMENOrdering Facility: [facility] Address: [address] [place] [address] Performed By: #### 2 777-1, 60530-7, ####[facility]ORATORYCLIA [id number] [address] OF [place] NM HEPATOBILIARY WO RXon NM HEPATOBILIARY WO RX Normal [facility] NUTRITIONon 05-15-2024 NUTRITION Normal [facility] Phosphate SerPl-mCncon 05-15 Phosphate [Mass/Vol] 2.0 mg/dL Low 2.7-4.8 [facility] Comment on above: Order Comment: Speci men Type: BLOOD SPECIMENOrdering Facility: [facility] Address: [address] [place] [address] Performed By: #### 2 777-1, 88814-9, ####[facility]ORATORYCLIA [id number] [place] [address] [place] Basic metabolic 2000 panelon 05-14-2024 Anion gap [Moles/Vol] 7 mmol/L Low 8-15 [facility] Comment on above: Order Comment: Speci men Type: BLOOD SPECIMENOrdering Facility: [facility] Address: [address] [place] [address] Performed By: #### 2 4321-2, 2777-1, ####[facility]ORATORYCLIA [id number] [place] [address] [place] Calcium [Mass/Vol] 8.0 mg/dL Low 8.5-10.2 [facility] Comment on above: Order Comment: Speci men Type: BLOOD SPECIMENOrdering Facility: [facility] Address: [address] [place] [address] Performed By: #### 2 4321-2, 2777-, ####[facility]ORATORYCLIA [id number] [place] [address] [place] Chloride [Moles/Vol] 110 mmol/L High 98-107 [facility] Comment on above: Order Comment: Speci men Type: BLOOD SPECIMENOrdering Facility: [facility] Address: [address] [place] [address] Performed By: #### 2 4321-2, 27711-28, ####[facility]ATORYCLIA [id number] [place] [address] [place] CO2 [Moles/Vol] 26 mmol/L Normal 22-30 [facility] Comment on above: Order Comment: Speci men Type: BLOOD SPECIMENOrdering Facility: [facility] Address: [address] [place] [address] Performed By: #### 2 4321-2, 27711-28, ####[facility]ORATORYCLIA [id number] [place] [phone] [place] Creatinine [Mass/Vol] 0.47 mg/dL Low 0.58-0.96 [facility] Comment on above: Order Comment: Speci men Type: BLOOD SPECIMENOrdering Facility: [facility] Address: [address] [place] [address] Performed By: #### 2 4321-2, 27711-28, ####[facility]ORATORYCLIA [id number] [place] [phone] [facility] Creatinine and Glomerular filtration rate.predicted panel (S/P/Bld) 95 mL/min/1.73m??? Normal >=60 [facility] Comment on above: Order Comment: Speci men Type: BLOOD SPECIMENOrdering Facility: [facility] Address: [address] [place] [address] Result Comment: Kaylene mated Glomerular Filtration Rate [...] actual GFR. Performed By: #### 2 4321-2, 2776-05, ####[facility]ORATORYCLIA [id number] [place] [address] [place] Glucose [Mass/Vol] 224 mg/dL High 74-99 [facility] Comment on above: Order Comment: Speci men Type: BLOOD SPECIMENOrdering Facility: [facility] Address: [address] [place], [place] [phone] Result Comment: The [employer] Diabetes [employer] (ADA) provides guidance for cutoff [...] Standards of Medical Care in Diabetes 2016, [employer] [employer]. Diabetes Care. 2016.39(Suppl 1). Performed By: #### 2 4321-2, 2776-05, ####[facility]ORATORYCLIA [id number] [place] [phone] [place] Potassium [Moles/Vol] 4.2 mmol/L Normal 3.7-5.1 [facility] Comment on above: Order Comment: Speci men Type: BLOOD SPECIMENOrdering Facility: [facility] Address: [address] [place] [address] Performed By: #### 2 4321-2, 2776-05, ####[facility]ORATORYCLIA [id number] [place] [address] [place] Sodium [Moles/Vol] 143 mmol/L Normal 136-144 [facility] Comment on above: Order Comment: Speci men Type: BLOOD SPECIMENOrdering Facility: [facility] Address: [address] [place] [address] Performed By: #### 2 4321-2, 2776-05, ####[facility]ORATORYCLIA [id number] [address] STATES [place] Urea nitrogen [Mass/Vol] 21 mg/dL Normal 7-21 [facility] Comment on above: Order Comment: Speci men Type: BLOOD SPECIMENOrdering Facility: [facility] Address: [address] [place] [address] Performed By: #### 2 4321-2, 2776-05, ####[facility]ORATORYCLIA [id number] [address] STATES OF [facility] CBC panel Auto (Bld)on 05-14 Erythrocyte distribution width (RBC) [Ratio] 15.3 % High 11.5-15.0 [facility] Comment on above: Order Comment: Speci men Type: BLOOD SPECIMENOrdering Facility: [facility] Address: [address] [place] [address] Performed By: #### 5 8410-2 ####[facility]ORATORYCLIA [id number] [address] [place] Hematocrit (Bld) [Volume fraction] 24.1 % Low 36.0-46.0 [facility] Comment on above: Order Comment: Speci men Type: BLOOD SPECIMENOrdering Facility: [facility] Address: [address] [place] [address] Performed By: #### 5 8410-2 ####[facility]ORATORYCLIA [id number] [address] [place] Hemoglobin (Bld) [Mass/Vol] 7.5 g/dL Low 11.5-15.5 [facility] Comment on above: Order Comment: Speci men Type: BLOOD SPECIMENOrdering Facility: [facility] Address: [address] [place] [address] Performed By: #### 5 8410-2 ####[facility]ORATORYCLIA [id number] [address] MCH (RBC) [Entitic mass] 29.6 pg Normal 26.0-34.0 [facility] Comment on above: Order Comment: Speci men Type: BLOOD SPECIMENOrdering Facility: [facility] Address: [address] [place] [address] Performed By: #### 5 8410-2 ####[facility]ORATORYCLIA [id number] [address] MCHC (RBC) [Mass/Vol] 31.1 g/dL Normal 30.5-36.0 [facility] Comment on above: Order Comment: Speci men Type: BLOOD SPECIMENOrdering Facility: [facility] Address: [address] [place] [address] Performed By: #### 5 8410-2 ####[facility]ORATORYCLIA [id number] [address] MCV (RBC) [Entitic vol] 95.3 fL Normal 80.0-100.0 [facility] Comment on above: Order Comment: Speci men Type: BLOOD SPECIMENOrdering Facility: [facility] Address: [address] [place] [address] Performed By: #### 5 8410-2 ####[facility]ATORYCLIA [id number] [address] Nucleated RBC (Bld) [#/Vol] 0.02 10*3/uL High <0.01 [facility] Comment on above: Order Comment: Speci men Type: BLOOD SPECIMENOrdering Facility: [facility] Address: [address] [place] [address] Performed By: #### 5 8410-2 ####[facility]ORATORYCLIA [id number] [address] Platelet mean volume (Bld) [Entitic vol] 10.1 fL Normal 9.0-12.7 [facility] Comment on above: Order Comment: Speci men Type: BLOOD SPECIMENOrdering Facility: [facility] Address: [address] [place] [address] Performed By: #### 5 8410-2 ####[facility]ATORYCLIA [id number] [address] [place] Platelets (Bld) [#/Vol] 409 10*3/uL High 150-400 [facility] Comment on above: Order Comment: Speci men Type: BLOOD SPECIMENOrdering Facility: [facility] Address: [address] [place] [address] Performed By: #### 5 8410-2 ####[facility]ORATORYCLIA [id number] [place] [address] [place] RBC (Bld) [#/Vol] 2.53 10*6/uL Low 3.90-5.20 [facility] Comment on above: Order Comment: Speci men Type: BLOOD SPECIMENOrdering Facility: [facility] Address: [address] [place] [address] Performed By: #### 5 8410-2 ####[facility]ORATORYCLIA [id number] [address] OF [place] WBC (Bld) [#/Vol] 7.33 10*3/uL Normal 3.70-11.00 [facility] Comment on above: Order Comment: Speci men Type: BLOOD SPECIMENOrdering Facility: [facility] Address: [address] [place] [address] Performed By: #### 5 8410-2 ####[facility]ORATORYCLIA [id number] [address] [place] Magnesium SerPl-ncon 05-14 Magnesium [Mass/Vol] 2.0 mg/dL Normal 1.7-2.3 [facility] Comment on above: Order Comment: Speci men Type: BLOOD SPECIMENOrdering Facility: [facility] Address: [address] [place] [address] Performed By: #### 2 4321-2, 27711-28, ####[facility]ATORYCLIA [id number] [place] [address] [place] Phosphate SerPl-mCncon 05-14 Phosphate [Mass/Vol] 2.9 mg/dL Normal 2.7-4.8 [facility] Comment on above: Order Comment: Speci men Type: BLOOD SPECIMENOrdering Facility: [facility] Address: [address] [place] [address] Performed By: #### 2 4321-2, 2776-05, ####[facility]ORATORYCLIA [id number] [place] [address] [place] THERAPY NTon 05-14-2024 THERAPY NT Normal [facility] Basic metabolic 2000 panelon 05-13-2024 Anion gap [Moles/Vol] 12 mmol/L Normal 8-15 [facility] Comment on above: Order Comment: Speci men Type: BLOOD SPECIMENOrdering Facility: [facility] Address: [address] [place] [address] Performed By: #### 2 4321-2, , 2776-05 ####[facility]ORATORYCLIA [id number] [place] [address] [place] Calcium [Mass/Vol] 8.3 mg/dL Low 8.5-10.2 [facility] Comment on above: Order Comment: Speci men Type: BLOOD SPECIMENOrdering Facility: [facility] Address: [address] [place] [address] Performed By: #### 2 4321-2, , 2776-05 ####[facility]ORATORYCLIA [id number] [place] [address] [place] Chloride [Moles/Vol] 107 mmol/L Normal 98-107 [facility] Comment on above: Order Comment: Speci men Type: BLOOD SPECIMENOrdering Facility: [facility] Address: [address] [place] [address] Performed By: #### 2 4321-2, , 2776-05 ####[facility]ORATORYCLIA [id number] [place] [id number] [place] CO2 [Moles/Vol] 19 mmol/L Low 22-30 [facility] Comment on above: Order Comment: Speci men Type: BLOOD SPECIMENOrdering Facility: [facility] Address: [address] [place] [address] Performed By: #### 2 4321-2, , 2776-05 ####[facility]ORATORYCLIA [id number] [address] STATES OF [facility] Creatinine [Mass/Vol] 0.56 mg/dL Low 0.58-0.96 [facility] Comment on above: Order Comment: Speci men Type: BLOOD SPECIMENOrdering Facility: [facility] Address: [address] [place] [address] Performed By: #### 2 4321-2, , 2776-05 ####[facility]ITALIA [id number] [address] Creatinine and Glomerular filtration rate.predicted panel (S/P/Bld) 91 mL/min/1.73m??? Normal >=60 [facility] Comment on above: Order Comment: Speci men Type: BLOOD SPECIMENOrdering Facility: [facility] Address: [address] [place] [address] Result Comment: Kaylene mated Glomerular Filtration Rate [...] Performed By: #### 2 4321-2, , 2776-05 ####[facility]ORATORYCLIA [id number] [place] [id number] [place] Glucose [Mass/Vol] 213 mg/dL High 74-99 [facility] Comment on above: Order Comment: Speci men Type: BLOOD SPECIMENOrdering Facility: [facility] Address: [address] [place], [place] [phone] Result Comment: The [employer] [employer] (ADA) provides guidance for cutoff [...] Standards of Medical Care in Diabetes 2016, [employer] [employer]. Diabetes Care. 2016.39(Suppl 1). Performed By: #### 2 4321-2, , 2776-05 ####[facility] LABORATORYCLIA [id number] [place] [address] [place] Potassium [Moles/Vol] 3.4 mmol/L Low 3.7-5.1 [facility] Comment on above: Order Comment: Speci men Type: BLOOD SPECIMENOrdering Facility: [facility] Address: [address] [place] [address] Performed By: #### 2 4321-2, , 2776-05 ####[facility]ORATORYCLIA [id number] [place] [address] [place] Sodium [Moles/Vol] 138 mmol/L Normal 136-144 [facility] Comment on above: Order Comment: Speci men Type: BLOOD SPECIMENOrdering Facility: [facility] Address: [address] [place] [address] Performed By: #### 2 432-2, , 2776-05 ####[facility]ORATORYCLIA [id number] [place] [address] [place] Urea nitrogen [Mass/Vol] 17 mg/dL Normal 7-21 [facility] Comment on above: Order Comment: Speci men Type: BLOOD SPECIMENOrdering Facility: [facility] Address: [address] [place] [address] Performed By: #### 2 4321-2, 02861-1, 2777-1 ####[facility]ORATORYCLIA [id number] [address] CBC panel Auto (Bld)on 05-13 Erythrocyte distribution width (RBC) [Ratio] 15.2 % High 11.5-15.0 [facility] Comment on above: Order Comment: Speci men Type: BLOOD SPECIMENOrdering Facility: [facility] Address: [address] [place] [address] Performed By: #### 5 8410-2 ####[facility]ORATORYCLIA [id number] [address] STATES OF [facility] Hematocrit (Bld) [Volume fraction] 24.2 % Low 36.0-46.0 [facility] Comment on above: Order Comment: Speci men Type: BLOOD SPECIMENOrdering Facility: [facility] Address: [address] [place] [address] Performed By: #### 5 8410-2 ####[facility]ORATORYCLIA [id number] [address] Hemoglobin (Bld) [Mass/Vol] 7.6 g/dL Low 11.5-15.5 [facility] Comment on above: Order Comment: Speci men Type: BLOOD SPECIMENOrdering Facility: [facility] Address: [address] [place] [address] Performed By: #### 5 8410-2 ####[facility] LABORATORYCLIA [id number] [address] OF [place] MCH (RBC) [Entitic mass] 30.2 pg Normal 26.0-34.0 [facility] Comment on above: Order Comment: Speci men Type: BLOOD SPECIMENOrdering Facility: [facility] Address: [address] [place] [address] Performed By: #### 5 8410-2 ####[facility] LABORATORYCLIA [id number] [address] OF [facility] MCHC (RBC) [Mass/Vol] 31.4 g/dL Normal 30.5-36.0 [facility] Comment on above: Order Comment: Speci men Type: BLOOD SPECIMENOrdering Facility: [facility] Address: [address] [place] [address] Performed By: #### 5 8410-2 ####[facility] LABORATORYCLIA [id number] [address] OF [place] MCV (RBC) [Entitic vol] 96.0 fL Normal 80.0-100.0 [facility] Comment on above: Order Comment: Speci men Type: BLOOD SPECIMENOrdering Facility: [facility] Address: [address] [place] [address] Performed By: #### 5 8410-2 ####[facility] LABORATORYCLIA [id number] [address] STATES OF [facility] Nucleated RBC (Bld) [#/Vol] 0.03 10*3/uL High <0.01 [facility] Comment on above: Order Comment: Speci men Type: BLOOD SPECIMENOrdering Facility: [facility] Address: [address] [place] [address] Performed By: #### 5 8410-2 ####[facility] LABORATORYCLIA [id number] [address] OF [facility] Platelet mean volume (Bld) [Entitic vol] 10.3 fL Normal 9.0-12.7 [facility] Comment on above: Order Comment: Speci men Type: BLOOD SPECIMENOrdering Facility: [facility] Address: [address] [place] [address] Performed By: #### 5 8410-2 ####[facility] LABORATORYCLIA [id number] [address] OF [place] Platelets (Bld) [#/Vol] 392 10*3/uL Normal 150-400 [facility] Comment on above: Order Comment: Speci men Type: BLOOD SPECIMENOrdering Facility: [facility] Address: [address] [place] [address] Performed By: #### 5 8410-2 ####[facility] LABORATORYCLIA [id number] [place] [address] [place] RBC (Bld) [#/Vol] 2.52 10*6/uL Low 3.90-5.20 [facility] Comment on above: Order Comment: Speci men Type: BLOOD SPECIMENOrdering Facility: [facility] Address: [address] [place] [address] Performed By: #### 5 8410-2 ####[facility]ORATORYCLIA [id number] [place] [address] [place] WBC (Bld) [#/Vol] 8.49 10*3/uL Normal 3.70-11.00 [facility] Comment on above: Order Comment: Speci men Type: BLOOD SPECIMENOrdering Facility: [facility] Address: [address] [place] [address] Performed By: #### 5 8410-2 ####[facility] LABORATORYCLIA [id number] [place] [address] [place] Magnesium SerPl-mCncon 05-13 Magnesium [Mass/Vol] 1.9 mg/dL Normal 1.7-2.3 [facility] Comment on above: Order Comment: Speci men Type: BLOOD SPECIMENOrdering Facility: [facility] Address: [address] [place] [address] Performed By: #### 2 4321-2, , 27711-28 ####[facility]ORATORYCLIA [id number] [place] [address] [place] Phosphate SerPl-mCncon 05-13 Phosphate [Mass/Vol] 2.2 mg/dL Low 2.7-4.8 [facility] Comment on above: Order Comment: Speci men Type: BLOOD SPECIMENOrdering Facility: [facility] Address: [address] [place] [address] Performed By: #### 2 4321-2, , 2777-1 ####[facility] [id number] [place] [address] [place] XR ABDOMEN 1V SUPINEon 05-13 XR ABDOMEN 1V SUPINE Normal [facility] Basic metabolic 2000 panelon 05-12-2024 Anion gap [Moles/Vol] 14 mmol/L Normal 8-15 [facility] Comment on above: Order Comment: Speci men Type: BLOOD SPECIMENOrdering Facility: [facility] Address: [address] [place] [address] Performed By: #### 2 4321-2 ####[facility]ORATORYCLIA [id number] [place] [address] [place] Calcium [Mass/Vol] 8.2 mg/dL Low 8.5-10.2 [facility] Comment on above: Order Comment: Speci men Type: BLOOD SPECIMENOrdering Facility: [facility] Address: [address] [place] [address] Performed By: #### 2 4321-2 ####[facility]ORATORYCLIA [id number] [place] [address] [place] Chloride [Moles/Vol] 105 mmol/L Normal 98-107 [facility] Comment on above: Order Comment: Speci men Type: BLOOD SPECIMENOrdering Facility: [facility] Address: [address] [place] [address] Performed By: #### 2 4321-2 ####[facility]ORATORYCLIA [id number] [place] [address] [place] CO2 [Moles/Vol] 17 mmol/L Low 22-30 [facility] Comment on above: Order Comment: Speci men Type: BLOOD SPECIMENOrdering Facility: [facility] Address: [address] [place] [address] Performed By: #### 2 4321-2 ####[facility]ORATORYCLIA [id number] [place] [address] [place] Creatinine [Mass/Vol] 0.54 mg/dL Low 0.58-0.96 [facility] Comment on above: Order Comment: Bernardomigel rg Type: BLOOD SPECIMENOrdering Facility: [facility] Address: [address] [place] [address] Performed By: #### 2 4321-2 ####[facility]ORATORYCLIA [id number] [address] [place] Creatinine and Glomerular filtration rate.predicted panel (S/P/Bld) 92 mL/min/1.73m??? Normal >=60 [facility] Comment on above: Order Comment: Bernardomigel rg Type: BLOOD SPECIMENOrdering Facility: [facility] Address: [address] [place] [address] Result Comment: Kaylene mated Glomerular Filtration Rate [...] actual GFR. Performed By: #### 2 4321-2 ####[facility]ORATORYCLIA [id number] [place] [address] [place] Glucose [Mass/Vol] 227 mg/dL High 74-99 [facility] Comment on above: Order Comment: Helen rg Type: BLOOD SPECIMENOrdering Facility: [facility] Address: [address] [place] [address] Result Comment: The [place] Diabetes Association (ADA) provides guidance for cutoff [...] Standards of Medical Care in Diabetes 2016, [place] [employer]. Diabetes Care. 2016.39(Suppl 1). Performed By: #### 2 4321-2 ####[facility]ORATORYCLIA [id number] [place] [address] [place] Potassium [Moles/Vol] 3.7 mmol/L Normal 3.7-5.1 [facility] Comment on above: Order Comment: Speci men Type: BLOOD SPECIMENOrdering Facility: [facility] Address: [address] [place] [address] Performed By: #### 2 4321-2 ####[facility]ORATORYCLIA [id number] [place] [address] [place] Sodium [Moles/Vol] 136 mmol/L Normal 136-144 [facility] Comment on above: Order Comment: Speci men Type: BLOOD SPECIMENOrdering Facility: [facility] Address: [address] [place] [address] Performed By: #### 2 4321-2 ####[facility]ORATORYCLIA [id number] [place] [address] [place] Urea nitrogen [Mass/Vol] 16 mg/dL Normal 7-21 [facility] Comment on above: Order Comment: Speci men Type: BLOOD SPECIMENOrdering Facility: [facility] Address: [address] [place] [address] Performed By: #### 2 4321-2 ####[facility]ORATORYCLIA [id number] [place] [address] [place] Anion gap [Moles/Vol] 15 mmol/L Normal 8-15 [facility] Comment on above: Order Comment: Speci men Type: BLOOD SPECIMENOrdering Facility: [facility] Address: [address] [place] [address] Performed By: #### 2 4321-2, 59107-2, 2777-1 ####[facility]ORATORYCLIA [id number] [place] [address] [place] Calcium [Mass/Vol] 7.7 mg/dL Low 8.5-10.2 [facility] Comment on above: Order Comment: Speci men Type: BLOOD SPECIMENOrdering Facility: [facility] Address: [address] [place] [id number] Performed By: #### 2 4321-2, , 2776-05 ####[facility] LABORATORYCLIA [id number] [place] [address] [place] Chloride [Moles/Vol] 108 mmol/L High 98-107 [facility] Comment on above: Order Comment: Speci men Type: BLOOD SPECIMENOrdering Facility: [facility] Address: [address] [place] [address] Performed By: #### 2 4321-2, , 2776-05 ####[facility] LABORATORYCLIA [id number] [place] [id number] [place] CO2 [Moles/Vol] 17 mmol/L Low 22-30 [facility] Comment on above: Order Comment: Speci men Type: BLOOD SPECIMENOrdering Facility: [facility] Address: [address] [place] [address] Performed By: #### 2 4321-2, , 2776-05 ####[facility]ORATORYCLIA [id number] [place] [id number] [place] Creatinine [Mass/Vol] 0.62 mg/dL Normal 0.58-0.96 [facility] Comment on above: Order Comment: Speci men Type: BLOOD SPECIMENOrdering Facility: [facility] Address: [address] [place] [address] Performed By: #### 2 4321-2, , 2776-05 ####[facility] LABORATORYCLIA [id number] [place] [id number] [facility] Creatinine and Glomerular filtration rate.predicted panel (S/P/Bld) 89 mL/min/1.73m??? Normal >=60 [facility] Comment on above: Order Comment: Speci men Type: BLOOD SPECIMENOrdering Facility: [facility] Address: [address] [place] [address] Result Comment: Kaylene mated Glomerular Filtration Rate [...] Performed By: #### 2 4321-2, , 2776-05 ####[facility] LABORATORYCLIA [id number] [place] [address] [place] Glucose [Mass/Vol] 140 mg/dL High 74-99 [facility] Comment on above: Order Comment: Heeln rg Type: BLOOD SPECIMENOrdering Facility: [facility] Address: [address] [place] [address] Result Comment: The [place] Diabetes Association (ADA) provides guidance for cutoff [...] Standards of Medical Care in Diabetes 2016, [place] [employer]. Diabetes Care. 2016.39(Suppl 1). Performed By: #### 2 4321-2, , 2776-05 ####[facility] LABORATORYCLIA [id number] [place] [id number] [place] Potassium [Moles/Vol] 3.4 mmol/L Low 3.7-5.1 [facility] Comment on above: Order Comment: Helen rg Type: BLOOD SPECIMENOrdering Facility: [facility] Address: [address] [place] [id number] Performed By: #### 2 4321-2, , 2776-05 ####[facility]ORATORYCLIA [id number] [place] [address] [place] Sodium [Moles/Vol] 140 mmol/L Normal 136-144 [facility] Comment on above: Order Comment: Speci men Type: BLOOD SPECIMENOrdering Facility: [facility] Address: [address] [place] [address] Performed By: #### 2 4321-2, , 2776-05 ####[facility]ORATORYCLIA [id number] [place] [address] [place] [facility] Urea nitrogen [Mass/Vol] 16 mg/dL Normal 7-21 [facility] Comment on above: Order Comment: Speci men Type: BLOOD SPECIMENOrdering Facility: [facility] Address: [address] [place] [address] Performed By: #### 2 4321-2, , 2776-05 ####[facility]ORATORYCLIA [id number] [address] [place] CASE MANAGEMon 05-12-2024 CASE MANAGEM Normal [facility] CBC panel Auto (Bld)on 05-12 Erythrocyte distribution width (RBC) [Ratio] 15.4 % High 11.5-15.0 [facility] Comment on above: Order Comment: Speci men Type: BLOOD SPECIMENOrdering Facility: [facility] Address: [address] [place] [address] Performed By: #### 5 8410-2 ####[facility]ORATORYCLIA [id number] [address] [place] Hematocrit (Bld) [Volume fraction] 25.1 % Low 36.0-46.0 [facility] Comment on above: Order Comment: Speci men Type: BLOOD SPECIMENOrdering Facility: [facility] Address: [address] [place] [address] Performed By: #### 5 8410-2 ####[facility]ORATORYCLIA [id number] [address] [place] Hemoglobin (Bld) [Mass/Vol] 8.0 g/dL Low 11.5-15.5 [facility] Comment on above: Order Comment: Speci men Type: BLOOD SPECIMENOrdering Facility: [facility] Address: [address] [place] [address] Performed By: #### 5 8410-2 ####[facility]ORATORYCLIA [id number] [address] MCH (RBC) [Entitic mass] 30.4 pg Normal 26.0-34.0 [facility] Comment on above: Order Comment: Speci men Type: BLOOD SPECIMENOrdering Facility: [facility] Address: [address] [place] [address] Performed By: #### 5 8410-2 ####[facility]ORATORYCLIA [id number] [address] MCHC (RBC) [Mass/Vol] 31.9 g/dL Normal 30.5-36.0 [facility] Comment on above: Order Comment: Speci men Type: BLOOD SPECIMENOrdering Facility: [facility] Address: [address] [place] [address] Performed By: #### 5 8410-2 ####[facility]ORATORYCLIA [id number] [address] MCV (RBC) [Entitic vol] 95.4 fL Normal 80.0-100.0 [facility] Comment on above: Order Comment: Speci men Type: BLOOD SPECIMENOrdering Facility: [facility] Address: [address] [place] [address] Performed By: #### 5 8410-2 ####[facility]ORATORYCLIA [id number] [address] Platelet mean volume (Bld) [Entitic vol] 10.3 fL Normal 9.0-12.7 [facility] Comment on above: Order Comment: Speci men Type: BLOOD SPECIMENOrdering Facility: [facility] Address: [address] [place] [address] Performed By: #### 5 8410-2 ####[facility]ORATORYCLIA [id number] [place] [address] [place] Platelets (Bld) [#/Vol] 373 10*3/uL Normal 150-400 [facility] Comment on above: Order Comment: Speci men Type: BLOOD SPECIMENOrdering Facility: [facility] Address: [address] [place] [address] Performed By: #### 5 8410-2 ####[facility]ORATORYCLIA [id number] [place] [address] [place] RBC (Bld) [#/Vol] 2.63 10*6/uL Low 3.90-5.20 [facility] Comment on above: Order Comment: Speci men Type: BLOOD SPECIMENOrdering Facility: [facility] Address: [address] [place] [address] Performed By: #### 5 8410-2 ####[facility]ORATORYCLIA [id number] [address] [place] WBC (Bld) [#/Vol] 8.48 10*3/uL Normal 3.70-11.00 [facility] Comment on above: Order Comment: Speci men Type: BLOOD SPECIMENOrdering Facility: [facility] Address: [address] [place] [address] Performed By: #### 5 8410-2 ####[facility]ORATORYCLIA [id number] [address] [place] Erythrocyte distribution width (RBC) [Ratio] 15.4 % High 11.5-15.0 [facility] Comment on above: Order Comment: Speci men Type: BLOOD SPECIMENOrdering Facility: [facility] Address: [address] [place] [address] Performed By: #### 5 8410-2 ####[facility]ORATORYCLIA [id number] [address] Hematocrit (Bld) [Volume fraction] 22.9 % Low 36.0-46.0 [facility] Comment on above: Order Comment: Speci men Type: BLOOD SPECIMENOrdering Facility: [facility] Address: [address] [place] [address] Performed By: #### 5 8410-2 ####[facility]ORATORYCLIA [id number] [address] Hemoglobin (Bld) [Mass/Vol] 7.2 g/dL Low 11.5-15.5 [facility] Comment on above: Order Comment: Speci men Type: BLOOD SPECIMENOrdering Facility: [facility] Address: [address] [place] [address] Performed By: #### 5 8410-2 ####[facility]ORATORYCLIA [id number] [address] MCH (RBC) [Entitic mass] 30.4 pg Normal 26.0-34.0 [facility] Comment on above: Order Comment: Speci men Type: BLOOD SPECIMENOrdering Facility: [facility] Address: [address] [place] [address] Performed By: #### 5 8410-2 ####[facility]ORATORYCLIA [id number] [address] MCHC (RBC) [Mass/Vol] 31.4 g/dL Normal 30.5-36.0 [facility] Comment on above: Order Comment: Speci men Type: BLOOD SPECIMENOrdering Facility: [facility] Address: [address] [place] [address] Performed By: #### 5 8410-2 ####[facility]ORATORYCLIA [id number] [address] MCV (RBC) [Entitic vol] 96.6 fL Normal 80.0-100.0 [facility] Comment on above: Order Comment: Speci men Type: BLOOD SPECIMENOrdering Facility: [facility] Address: [address] [place] [address] Performed By: #### 5 8410-2 ####[facility]ATORYCLIA [id number] [address] Nucleated RBC (Bld) [#/Vol] 10*3/uL Normal <0.01 [facility] Comment on above: Order Comment: Speci men Type: BLOOD SPECIMENOrdering Facility: [facility] Address: [address] [place] [address] Performed By: #### 5 8410-2 ####[facility]ATORYCLIA [id number] [address] [place] Platelet mean volume (Bld) [Entitic vol] 10.6 fL Normal 9.0-12.7 [facility] Comment on above: Order Comment: Speci men Type: BLOOD SPECIMENOrdering Facility: [facility] Address: [address] [place] [address] Performed By: #### 5 8410-2 ####[facility]ATORYCLIA [id number] [place] [address] [place] Platelets (Bld) [#/Vol] 286 10*3/uL Normal 150-400 [facility] Comment on above: Order Comment: Speci men Type: BLOOD SPECIMENOrdering Facility: [facility] Address: [address] [place] [address] Performed By: #### 5 8410-2 ####[facility]ATORYCLIA [id number] [place] [address] [place] RBC (Bld) [#/Vol] 2.37 10*6/uL Low 3.90-5.20 [facility] Comment on above: Order Comment: Speci men Type: BLOOD SPECIMENOrdering Facility: [facility] Address: [address] [place] [address] Performed By: #### 5 8410-2 ####[facility]ORATORYCLIA [id number] [address] [place] WBC (Bld) [#/Vol] 9.72 10*3/uL Normal 3.70-11.00 [facility] Comment on above: Order Comment: Speci men Type: BLOOD SPECIMENOrdering Facility: [facility] Address: [address] [place] [address] Performed By: #### 5 8410-2 ####[facility]ORATORYCLIA [id number] [address] [place] CONSULTon 05-12-2024 CONSULT Normal [facility] Calcium.ionized [Moles/Vol]o n 05-12-2024 Calcium.ionized (BldV) [Mass/Vol] 1.15 mmol/L Normal 1.08-1.30 [facility] Comment on above: Order Comment: Speci men Type: BLOOD SPECIMENOrdering Facility: [facility] Address: [address] [place] [address] Performed By: #### 1 995-0 ####[facility]ORATORYCLIA [id number] [address] Calcium.ionized adjusted to pH 7.4 (Bld) [Moles/Vol] 1.14 mmol/L Normal 1.08-1.30 [facility] Comment on above: Order Comment: Speci men Type: BLOOD SPECIMENOrdering Facility: [facility] Address: [address] [place] [address] Performed By: #### 1 995-0 ####[facility]ORATORYCLIA [id number] [address] [place] ECG COMPLETEon 05-12-2024 ECG COMPLETE Normal [facility] Magnesium SerPlDepartment of [facility] Affairs [facility]Lebanonon 05-12 Magnesium [Mass/Vol] 1.7 mg/dL Normal 1.7-2.3 [facility] Comment on above: Order Comment: Speci men Type: BLOOD SPECIMENOrdering Facility: [facility] Address: [address] [place] [address] Performed By: #### 2 4321-2, 67929-0, 2777-1 ####[facility]ORATORYCLIA [id number] [address] [place] NURSING PROGon 05-12-2024 NURSING PROG Normal [facility] NUTRITIONon 05-12-2024 NUTRITION Normal [facility] Phosphate SerPl-mCncon 05-12 Phosphate [Mass/Vol] 2.9 mg/dL Normal 2.7-4.8 [facility] Comment on above: Order Comment: Speci men Type: BLOOD SPECIMENOrdering Facility: [facility] Address: [address] [place] [address] Performed By: #### 2 4321-2, 12524-1, 2777-1 ####[facility]ORATORYCLIA [id number] [address] [place] THERAPY NTon 05-12-2024 THERAPY NT Normal [facility] ARTERIAL BLOOD GASESon 05-11 Base deficit (BldA) [Moles/Vol] -5 mmol/L Low -2-0 [facility] Comment on above: Order Comment: Speci men Type: ARTERIAL BLOOD SPECIMENOrdering Facility: [facility] Address: [address] [place] [address] Performed By: #### A LLBG ####[facility]ORATORYCLIA [id number] [address] [place] Body temperature 98.6 [degF] Normal [facility] Comment on above: Order Comment: Speci men Type: ARTERIAL BLOOD SPECIMENOrdering Facility: [facility] Address: [address] [place] [address] Performed By: #### A LLBG ####[facility]ORATORYCLIA [id number] [address] [place] Calcium.ionized (BldV) [Mass/Vol] 1.16 mmol/L Normal 1.08-1.30 [facility] Comment on above: Order Comment: Speci men Type: ARTERIAL BLOOD SPECIMENOrdering Facility: [facility] Address: [address] [place] [address] Performed By: #### A LLBG ####[facility]ORATORYCLIA [id number] [address] [place] Calcium.ionized adjusted to pH 7.4 (BldA) [Moles/Vol] 1.19 mmol/L Normal 1.08-1.30 [facility] Comment on above: Order Comment: Speci men Type: ARTERIAL BLOOD SPECIMENOrdering Facility: [facility] Address: [address] [place] [address] Performed By: #### A LLBG ####[facility]ORATORYCLIA [id number] [place] [address] [place] Carboxyhemoglobin (BldA) [Mass fraction] 1.5 % Normal 0.0-2.0 [facility] Comment on above: Order Comment: Speci men Type: ARTERIAL BLOOD SPECIMENOrdering Facility: [facility] Address: [address] [place] [address] Result Comment: Carb oxyhemoglobin Reference Range for Smokers: 2.0-8.0% Performed By: #### A LLBG ####[facility]ORATORYCLIA [id number] [place] [address] [place] Chloride [Moles/Vol] 107 mmol/L High 97-105 [facility] Comment on above: Order Comment: Speci men Type: ARTERIAL BLOOD SPECIMENOrdering Facility: [facility] Address: [address] [place] [address] Performed By: #### A LLBG ####[facility]ORATORYCLIA [id number] [place] [address] [place] CO2 (Bld) [Partial pressure] 26 mm Hg Low 36-46 [facility] Comment on above: Order Comment: Speci men Type: ARTERIAL BLOOD SPECIMENOrdering Facility: [facility] Address: [address] [place] [address] Performed By: #### A LLBG ####[facility]ORATORYCLIA [id number] [place] [address] [place] Glucose [Mass/Vol] 178 mg/dL High 60-105 [facility] Comment on above: Order Comment: Speci men Type: ARTERIAL BLOOD SPECIMENOrdering Facility: [facility] Address: [address] [place] [address] Performed By: #### A LLBG ####[facility] LABORATORYCLIA [id number] [place] [address] [place] HCO3 (Bld) [Moles/Vol] 18 mmol/L Low 22-26 [facility] Comment on above: Order Comment: Speci men Type: ARTERIAL BLOOD SPECIMENOrdering Facility: [facility] Address: [address] [place] [address] Performed By: #### A LLBG ####[facility] LABORATORYCLIA [id number] [address] Hematocrit (Bld) [Volume fraction] 25.7 % Low 36.0-46.0 [facility] Comment on above: Order Comment: Speci men Type: ARTERIAL BLOOD SPECIMENOrdering Facility: [facility] Address: [address] [place] [address] Performed By: #### A LLBG ####[facility] LABORATORYCLIA [id number] [address] [place] Hemoglobin (Bld) [Mass/Vol] 8.3 g/dL Low 11.5-15.5 [facility] Comment on above: Order Comment: Speci men Type: ARTERIAL BLOOD SPECIMENOrdering Facility: [facility] Address: [address] [place] [address] Performed By: #### A LLBG ####ST. [facility]ATORYCLIA [id number] [address] [place] Lactate [Moles/Vol] 1.0 mmol/L Normal 0.5-2.2 [facility] Comment on above: Order Comment: Speci men Type: ARTERIAL BLOOD SPECIMENOrdering Facility: [facility] Address: [address] [place] [address] Performed By: #### A LLBG ####[facility] LABORATORYCLIA [id number] [address] [place] Methemoglobin (Bld) [Mass fraction] 1.1 % Normal 0.0-1.5 [facility] Comment on above: Order Comment: Speci men Type: ARTERIAL BLOOD SPECIMENOrdering Facility: [facility] Address: [address] [place] [address] Performed By: #### A LLBG ####[facility]ORATORYCLIA [id number] [address] [place] O2 THERAPY RA=Room Air Normal [facility] Comment on above: Order Comment: Speci men Type: ARTERIAL BLOOD SPECIMENOrdering Facility: [facility] Address: [address] [place] [address] Performed By: #### A LLBG ####[facility] LABORATORYCLIA [id number] [place] [address] [place] Oxygen (Bld) [Partial pressure] 100 mm Hg High 85-95 [facility] Comment on above: Order Comment: Speci men Type: ARTERIAL BLOOD SPECIMENOrdering Facility: [facility] Address: [address] [place] [address] Performed By: #### A LLBG ####[facility]ORATORYCLIA [id number] [address] OF [place] Oxyhemoglobin (BldA) [Mass fraction] 95 % Normal 95-98 [facility] Comment on above: Order Comment: Speci men Type: ARTERIAL BLOOD SPECIMENOrdering Facility: [facility] Address: [address] [place] [address] Performed By: #### A LLBG ####[facility]ORATORYCLIA [id number] [place] [address] [place] pH (Bld) 7.46 [pH] High 7.35-7.45 [facility] Comment on above: Order Comment: Speci men Type: ARTERIAL BLOOD SPECIMENOrdering Facility: [facility] Address: [address] [place] [address] Performed By: #### A LLBG ####[facility]ORATORYCLIA [id number] [address] [place] PO2 / FIO2 RATIO 476 mmHg Normal >300 [facility] Comment on above: Order Comment: Speci men Type: ARTERIAL BLOOD SPECIMENOrdering Facility: [facility] Address: [address] [place] [address] Performed By: #### A LLBG ####[facility]ORATORYCLIA [id number] [place] [address] [place] Potassium [Moles/Vol] 3.9 mmol/L Normal 3.5-5.0 [facility] Comment on above: Order Comment: Speci men Type: ARTERIAL BLOOD SPECIMENOrdering Facility: [facility] Address: [address] [place] [address] Performed By: #### A LLBG ####[facility]ATORYCLIA [id number] [place] [address] [place] Sodium [Moles/Vol] 136 mmol/L Normal 136-144 [facility] Comment on above: Order Comment: Speci men Type: ARTERIAL BLOOD SPECIMENOrdering Facility: [facility] Address: [address] [place] [address] Performed By: #### A LLBG ####[facility]ORATORYCLIA [id number] [place] [address] [place] Basic metabolic 2000 panelon 05-11-2024 Anion gap [Moles/Vol] 13 mmol/L Normal 8-15 [facility] Comment on above: Order Comment: Speci men Type: BLOOD SPECIMENOrdering Facility: [facility] Address: [address] [place] [address] Performed By: #### 2 4321-2, , 2776-05 ####[facility]ATORYCLIA [id number] [place] [address] [place] Calcium [Mass/Vol] 8.3 mg/dL Low 8.5-10.2 [facility] Comment on above: Order Comment: Speci men Type: BLOOD SPECIMENOrdering Facility: [facility] Address: [address] [place] [address] Performed By: #### 2 4321-2, , 2776-05 ####[facility]ORATORYCLIA [id number] [place] [address] [place] Chloride [Moles/Vol] 104 mmol/L Normal 98-107 [facility] Comment on above: Order Comment: Speci men Type: BLOOD SPECIMENOrdering Facility: [facility] Address: [address] [place] [address] Performed By: #### 2 4321-2, , 2776-05 ####[facility]ORATORYCLIA [id number] [place] [address] [place] CO2 [Moles/Vol] 21 mmol/L Low 22-30 [facility] Comment on above: Order Comment: Speci men Type: BLOOD SPECIMENOrdering Facility: [facility] Address: [address] [place] [address] Performed By: #### 2 4321-2, , 2776-05 ####[facility]ORATORYCLIA [id number] [place] [id number] [place] Creatinine [Mass/Vol] 0.54 mg/dL Low 0.58-0.96 [facility] Comment on above: Order Comment: Speci men Type: BLOOD SPECIMENOrdering Facility: [facility] Address: [address] [place] [address] Performed By: #### 2 4321-2, , 2776-05 ####[facility] [id number] [address] STATES OF [facility] Creatinine and Glomerular filtration rate.predicted panel (S/P/Bld) 92 mL/min/1.73m??? Normal >=60 [facility] Comment on above: Order Comment: Speci men Type: BLOOD SPECIMENOrdering Facility: [facility] Address: [address] [place] [address] Result Comment: Kaylene mated Glomerular Filtration Rate [...] Performed By: #### 2 4321-2, , 2776-05 ####[facility]ATORYCLIA [id number] [place] [address] [place] Glucose [Mass/Vol] 134 mg/dL High 74-99 [facility] Comment on above: Order Comment: Speci men Type: BLOOD SPECIMENOrdering Facility: [facility] Address: [address] [place] [address] Result Comment: The [place] [employer] (ADA) provides guidance for cutoff [...] Standards of Medical Care in Diabetes 2016, [place] [employer]. Diabetes Care. 2016.39(Suppl 1). Performed By: #### 2 4321-2, , 2776-05 ####[facility]ORATORYCLIA [id number] [place] [address] [place] Potassium [Moles/Vol] 3.8 mmol/L Normal 3.7-5.1 [facility] Comment on above: Order Comment: Helen ifrah Type: BLOOD SPECIMENOrdering Facility: [facility] Address: [address] [place] [address] Performed By: #### 2 4321-2, , 2776-05 ####[facility]ORATORYCLIA [id number] [place] [address] [place] Sodium [Moles/Vol] 138 mmol/L Normal 136-144 [facility] Comment on above: Order Comment: Helen rg Type: BLOOD SPECIMENOrdering Facility: [facility] Address: [address] [place] [address] Performed By: #### 2 4321-2, , 2776-05 ####[facility]ORATORYCLIA [id number] [place] [address] [place] Urea nitrogen [Mass/Vol] 9 mg/dL Normal 7-21 [facility] Comment on above: Order Comment: Helen men Type: BLOOD SPECIMENOrdering Facility: [facility] Address: [address] [place] [address] Performed By: #### 2 4321-2, 13233-1, 2777-1 ####[facility]ATORYCLIA [id number] [address] CASE MANAGEMon 05-11-2024 CASE MANAGEM Normal [facility] CBC panel Auto (Bld)on 05-11 Erythrocyte distribution width (RBC) [Ratio] 15.2 % High 11.5-15.0 [facility] Comment on above: Order Comment: Speci men Type: BLOOD SPECIMENOrdering Facility: [facility] Address: [address] [place] [address] Performed By: #### 5 8410-2 ####[facility]ORATORYCLIA [id number] [address] STATES [facility] Hematocrit (Bld) [Volume fraction] 26.1 % Low 36.0-46.0 [facility] Comment on above: Order Comment: Speci men Type: BLOOD SPECIMENOrdering Facility: [facility] Address: [address] [place] [address] Performed By: #### 5 8410-2 ####[facility] LABORATORYCLIA [id number] [address] [place] Hemoglobin (Bld) [Mass/Vol] 8.5 g/dL Low 11.5-15.5 [facility] Comment on above: Order Comment: Speci men Type: BLOOD SPECIMENOrdering Facility: [facility] Address: [address] [place] [address] Performed By: #### 5 8410-2 ####[facility]ORATORYCLIA [id number] [address] STATES [facility] MCH (RBC) [Entitic mass] 30.1 pg Normal 26.0-34.0 [facility] Comment on above: Order Comment: Speci men Type: BLOOD SPECIMENOrdering Facility: [facility] Address: [address] [place] [address] Performed By: #### 5 8410-2 ####[facility]ATORYCLIA [id number] [address] [place] MCHC (RBC) [Mass/Vol] 32.6 g/dL Normal 30.5-36.0 [facility] Comment on above: Order Comment: Speci men Type: BLOOD SPECIMENOrdering Facility: [facility] Address: [address] [place] [address] Performed By: #### 5 8410-2 ####[facility]ATORYCLIA [id number] [address] OF [place] MCV (RBC) [Entitic vol] 92.6 fL Normal 80.0-100.0 [facility] Comment on above: Order Comment: Speci men Type: BLOOD SPECIMENOrdering Facility: [facility] Address: [address] [place] [address] Performed By: #### 5 8410-2 ####[facility]ATORYCLIA [id number] [address] [place] Nucleated RBC (Bld) [#/Vol] 0.03 10*3/uL High <0.01 [facility] Comment on above: Order Comment: Speci men Type: BLOOD SPECIMENOrdering Facility: [facility] Address: [address] [place] [address] Performed By: #### 5 8410-2 ####[facility]ATORYCLIA [id number] [address] [place] Platelet mean volume (Bld) [Entitic vol] 10.8 fL Normal 9.0-12.7 [facility] Comment on above: Order Comment: Speci men Type: BLOOD SPECIMENOrdering Facility: [facility] Address: [address] [place] [address] Performed By: #### 5 8410-2 ####[facility]ATORYCLIA [id number] [address] [place] Platelets (Bld) [#/Vol] 316 10*3/uL Normal 150-400 [facility] Comment on above: Order Comment: Speci men Type: BLOOD SPECIMENOrdering Facility: [facility] Address: [address] [place] [address] Performed By: #### 5 8410-2 ####[facility]ATORYCLIA [id number] [address] STATES OF [facility] RBC (Bld) [#/Vol] 2.82 10*6/uL Low 3.90-5.20 [facility] Comment on above: Order Comment: Speci men Type: BLOOD SPECIMENOrdering Facility: [facility] Address: [address] [place] [address] Performed By: #### 5 8410-2 ####[facility]ATORYCLIA [id number] [address] STATES OF [facility] WBC (Bld) [#/Vol] 12.73 10*3/uL High 3.70-11.00 [facility] Comment on above: Order Comment: Speci men Type: BLOOD SPECIMENOrdering Facility: [facility] Address: [address] [place] [address] Performed By: #### 5 8410-2 ####[facility]ATORYCLIA [id number] [address] Calcium.ionized [Moles/Vol]o n 05-11-2024 Calcium.ionized (BldV) [Mass/Vol] 1.11 mmol/L Normal 1.08-1.30 [facility] Comment on above: Order Comment: Speci men Type: BLOOD SPECIMENOrdering Facility: [facility] Address: [address] [place] [address] Performed By: #### 1 995-0 ####[facility]ORATORYCLIA [id number] [address] Calcium.ionized adjusted to pH 7.4 (Bld) [Moles/Vol] 1.13 mmol/L Normal 1.08-1.30 [facility] Comment on above: Order Comment: Speci men Type: BLOOD SPECIMENOrdering Facility: [facility] Address: [address] [place] [address] Performed By: #### 1 995-0 ####[facility]ORATORYCLIA [id number] [address] OF [facility] Gas and Carbon monoxide pane l (BldV)on 05-11-2024 BASE DEFICIT, VENOUS >-1 Normal -2-0 [facility] Comment on above: Order Comment: Speci men Type: VENOUS BLOOD SPECIMENOrdering Facility: [facility] Address: [address] [place] [address] Performed By: #### 2 4344-4 ####[facility]ORATORYCLIA [id number] [address] Body temperature 97.7 [degF] Normal [facility] Comment on above: Order Comment: Speci men Type: VENOUS BLOOD SPECIMENOrdering Facility: [facility] Address: [address] [place] [address] Performed By: #### 2 4344-4 ####[facility]ORATORYCLIA [id number] [address] Calcium.ionized (BldV) [Mass/Vol] 1.13 mmol/L Normal 1.08-1.30 [facility] Comment on above: Order Comment: Speci men Type: VENOUS BLOOD SPECIMENOrdering Facility: [facility] Address: [address] [place] [address] Performed By: #### 2 4344-4 ####[facility]ATORYCLIA [id number] [address] Calcium.ionized adjusted to pH 7.4 (BldA) [Moles/Vol] 1.16 mmol/L Normal 1.08-1.30 [facility] Comment on above: Order Comment: Speci men Type: VENOUS BLOOD SPECIMENOrdering Facility: [facility] Address: [address] [place] [address] Performed By: #### 2 4344-4 ####[facility]ORATORYCLIA [id number] [address] Carboxyhemoglobin (BldV) [Mass fraction] 1.2 % Normal 0.0-2.0 [facility] Comment on above: Order Comment: Speci men Type: VENOUS BLOOD SPECIMENOrdering Facility: [facility] Address: [address] [place] [address] Result Comment: Carb oxyhemoglobin Reference Range for Smokers: 2.0-8.0% Performed By: #### 2 4344-4 ####[facility]ORATORYCLIA [id number] [address] OF [place] Chloride [Moles/Vol] 106 mmol/L High 97-105 [facility] Comment on above: Order Comment: Speci men Type: VENOUS BLOOD SPECIMENOrdering Facility: [facility] Address: [address] [place] [address] Performed By: #### 2 4344-4 ####[facility]ATORYCLIA [id number] [address] OF [place] CO2 (BldV) [Partial pressure] 34 mm[Hg] Low 42-55 [facility] Comment on above: Order Comment: Speci men Type: VENOUS BLOOD SPECIMENOrdering Facility: [facility] Address: [address] [place] [address] Performed By: #### 2 4344-4 ####[facility]ATORYCLIA [id number] [address] CO2 adjusted to patient's actual temperature (BldV) [Partial pressure] 33 mmHg Low 42-55 [facility] Comment on above: Order Comment: Speci men Type: VENOUS BLOOD SPECIMENOrdering Facility: [facility] Address: [address] [place] [address] Performed By: #### 2 4344-4 ####[facility]ATORYCLIA [id number] [address] [place] Glucose [Mass/Vol] 158 mg/dL High 60-105 [facility] Comment on above: Order Comment: Speci men Type: VENOUS BLOOD SPECIMENOrdering Facility: [facility] Address: [address] [place] [address] Performed By: #### 2 4344-4 ####[facility]ORATORYCLIA [id number] [place] [address] [place] HCO3 (Bld) [Moles/Vol] 23 mmol/L Low 24-28 [facility] Comment on above: Order Comment: Speci men Type: VENOUS BLOOD SPECIMENOrdering Facility: [facility] Address: [address] [place] [address] Performed By: #### 2 4344-4 ####[facility]ATORYCLIA [id number] [address] OF [place] Hematocrit (Bld) [Volume fraction] 26.6 % Low 36.0-46.0 [facility] Comment on above: Order Comment: Speci men Type: VENOUS BLOOD SPECIMENOrdering Facility: [facility] Address: [address] [place] [address] Performed By: #### 2 4344-4 ####[facility]ATORYCLIA [id number] [address] [place] Hemoglobin (Bld) [Mass/Vol] 8.6 g/dL Low 11.5-15.5 [facility] Comment on above: Order Comment: Speci men Type: VENOUS BLOOD SPECIMENOrdering Facility: [facility] Address: [address] [place] [address] Performed By: #### 2 4344-4 ####[facility]ATORYCLIA [id number] [address] [place] Lactate [Moles/Vol] 1.0 mmol/L Normal 0.5-2.2 [facility] Comment on above: Order Comment: Speci men Type: VENOUS BLOOD SPECIMENOrdering Facility: [facility] Address: [address] [place] [address] Performed By: #### 2 4344-4 ####[facility]ATORYCLIA [id number] [address] OF [place] Methemoglobin (Bld) [Mass fraction] 0.4 % Normal 0.0-1.5 [facility] Comment on above: Order Comment: Speci men Type: VENOUS BLOOD SPECIMENOrdering Facility: [facility] Address: [address] [place] [address] Performed By: #### 2 4344-4 ####[facility]ORATORYCLIA [id number] [place] [id number] [facility] OF [place] O2 THERAPY RA=Room Air Normal [facility] Comment on above: Order Comment: Speci men Type: VENOUS BLOOD SPECIMENOrdering Facility: [facility] Address: [address] [place] [address] Performed By: #### 2 4344-4 ####[facility]ATORYCLIA [id number] [address] OF [place] Oxygen (BldV) [Partial pressure] 76 mm[Hg] High 35-45 [facility] Comment on above: Order Comment: Speci men Type: VENOUS BLOOD SPECIMENOrdering Facility: [facility] Address: [address] [place] [address] Performed By: #### 2 4344-4 ####[facility]ATORYCLIA [id number] [address] [place] Oxygen adjusted to patient's actual temperature (BldV) [Partial pressure] 74 mmHg High 35-45 [facility] Comment on above: Order Comment: Speci men Type: VENOUS BLOOD SPECIMENOrdering Facility: [facility] Address: [address] [place] [address] Performed By: #### 2 4344-4 ####[facility]ATORYCLIA [id number] [place] [address] [place] Oxygen saturation in Venous blood 93 % High 60-85 [facility] Comment on above: Order Comment: Speci men Type: VENOUS BLOOD SPECIMENOrdering Facility: [facility] Address: [address] [place] [address] Performed By: #### 2 4344-4 ####[facility]ORATORYCLIA [id number] [place] [address] [place] Oxyhemoglobin (BldV) [Mass fraction] 92 % High 60-85 [facility] Comment on above: Order Comment: Speci men Type: VENOUS BLOOD SPECIMENOrdering Facility: [facility] Address: [address] [place] [address] Performed By: #### 2 4344-4 ####[facility]ORATORYCLIA [id number] [address] STATES OF [facility] pH (BldV) 7.45 [pH] High 7.32-7.42 [facility] Comment on above: Order Comment: Speci men Type: VENOUS BLOOD SPECIMENOrdering Facility: [facility] Address: [address] [place] [address] Performed By: #### 2 4344-4 ####[facility]ORYCLIA [id number] [address] pH adjusted to patient's actual temperature (BldV) 7.46 High 7.32-7.42 [facility] Comment on above: Order Comment: Speci men Type: VENOUS BLOOD SPECIMENOrdering Facility: [facility] Address: [address] [place] [address] Performed By: #### 2 4344-4 ####[facility]ATORYCLIA [id number] [address] [place] Potassium [Moles/Vol] 3.8 mmol/L Normal 3.5-5.0 [facility] Comment on above: Order Comment: Speci men Type: VENOUS BLOOD SPECIMENOrdering Facility: [facility] Address: [address] [place] [address] Performed By: #### 2 4344-4 ####[facility]ATORYCLIA [id number] [address] [place] Sodium [Moles/Vol] 136 mmol/L Normal 136-144 [facility] Comment on above: Order Comment: Speci men Type: VENOUS BLOOD SPECIMENOrdering Facility: [facility] Address: [address] [place] [address] Performed By: #### 2 4344-4 ####[facility]ORATORYCLIA [id number] [place] [address] [place] Magnesium SerPl-mCncon 05-11 Magnesium [Mass/Vol] 1.8 mg/dL Normal 1.7-2.3 [facility] Comment on above: Order Comment: Speci men Type: BLOOD SPECIMENOrdering Facility: [facility] Address: [address] [place] [address] Performed By: #### 2 4321-2, 77855-5, 2776- ####[facility]ATORYCLIA [id number] [place] [address] [place] NURSING PROGon 05-11-2024 NURSING PROG Normal [facility] Phosphate SerPl-mCncon 05-11 Phosphate [Mass/Vol] 2.6 mg/dL Low 2.7-4.8 [facility] Comment on above: Order Comment: Speci men Type: BLOOD SPECIMENOrdering Facility: [facility] Address: [address] [place] [address] Performed By: #### 2 4321-2, , 2776-05 ####[facility]ORATORYCLIA [id number] [place] [id number] [place] THERAPY NTon 05-11-2024 THERAPY NT Normal [facility] XR ABDOMEN 1V SUPINEon 05-11 XR ABDOMEN 1V SUPINE Normal [facility] XR CHEST 1V FRONTALon 2023 XR CHEST 1V FRONTAL Normal [facility] Basic metabolic 2000 panelon 05-10-2024 Anion gap [Moles/Vol] 9 mmol/L Normal 8-15 [facility] Comment on above: Order Comment: Speci men Type: BLOOD SPECIMENOrdering Facility: [facility] Address: [address] [place] [address] Performed By: #### 2 4321-2, , 2776-05 ####[facility]ORATORYCLIA [id number] [place] [address] [place] Calcium [Mass/Vol] 8.2 mg/dL Low 8.5-10.2 [facility] Comment on above: Order Comment: Speci men Type: BLOOD SPECIMENOrdering Facility: [facility] Address: [address] [place] [address] Performed By: #### 2 4321-2, , 2776-05 ####[facility]ORATORYCLIA [id number] [place] [id number] [place] Chloride [Moles/Vol] 103 mmol/L Normal 98-107 [facility] Comment on above: Order Comment: Speci men Type: BLOOD SPECIMENOrdering Facility: [facility] Address: [address] [place] [address] Performed By: #### 2 4321-2, , 2776-05 ####[facility] LABORATORYCLIA [id number] [place] [id number] [place] CO2 [Moles/Vol] 22 mmol/L Normal 22-30 [facility] Comment on above: Order Comment: Speci men Type: BLOOD SPECIMENOrdering Facility: [facility] Address: [address] [place] [address] Performed By: #### 2 4321-2, , 2776-05 ####[facility] LABORATORYCLIA [id number] [address] [place] Creatinine [Mass/Vol] 0.49 mg/dL Low 0.58-0.96 [facility] Comment on above: Order Comment: Speci men Type: BLOOD SPECIMENOrdering Facility: [facility] Address: [address] [place] [address] Performed By: #### 2 4321-2, , 2776-05 ####[facility] LABORATORYCLIA [id number] [place] [id number] [facility] Creatinine and Glomerular filtration rate.predicted panel (S/P/Bld) 94 mL/min/1.73m??? Normal >=60 [facility] Comment on above: Order Comment: Speci men Type: BLOOD SPECIMENOrdering Facility: [facility] Address: [address] [place] [address] Result Comment: Kaylene mated Glomerular Filtration Rate [...] Performed By: #### 2 4321-2, , 2776-05 ####[facility]ATORYCLIA [id number] [place] [address] [place] Glucose [Mass/Vol] 143 mg/dL High 74-99 [facility] Comment on above: Order Comment: Helen rg Type: BLOOD SPECIMENOrdering Facility: [facility] Address: [address] [place] [address] Result Comment: The [place] [employer] Association (ADA) provides guidance for cutoff [...] Standards of Medical Care in Diabetes 2016, [employer] [employer]. Diabetes Care. 2016.39(Suppl 1). Performed By: #### 2 4321-2, , 2776-05 ####[facility]ORATORYCLIA [id number] [place] [id number] [place] Potassium [Moles/Vol] 4.2 mmol/L Normal 3.7-5.1 [facility] Comment on above: Order Comment: Helen rg Type: BLOOD SPECIMENOrdering Facility: [facility] Address: [address] [place] [id number] Performed By: #### 2 4321-2, , 2776-05 ####[facility] LABORATORYCLIA [id number] [place] [address] [place] Sodium [Moles/Vol] 134 mmol/L Low 136-144 [facility] Comment on above: Order Comment: Speci men Type: BLOOD SPECIMENOrdering Facility: [facility] Address: [address] [place] [address] Performed By: #### 2 4321-2, , 2776-05 ####[facility]ORATORYCLIA [id number] [place] [id number] [place] Urea nitrogen [Mass/Vol] 12 mg/dL Normal 7- [facility] Comment on above: Order Comment: Speci men Type: BLOOD SPECIMENOrdering Facility: [facility] Address: [address] [place] [address] Performed By: #### 2 4321-2, , 2776-05 ####[facility]ORATORYCLIA [id number] [address] OF [facility] CASE MANAGEMon 05-10-2024 CASE MANAGEM Normal [facility] CBC panel Auto (Bld)on 05-10 Erythrocyte distribution width (RBC) [Ratio] 15.6 % High 11.5-15.0 [facility] Comment on above: Order Comment: Speci men Type: BLOOD SPECIMENOrdering Facility: [facility] Address: [address] [place] [address] Performed By: #### 5 8410-2 ####[facility]ORATORYCLIA [id number] [place] [address] [place] Hematocrit (Bld) [Volume fraction] 24.7 % Low 36.0-46.0 [facility] Comment on above: Order Comment: Speci men Type: BLOOD SPECIMENOrdering Facility: [facility] Address: [address] [place] [address] Performed By: #### 5 8410-2 ####[facility]ORATORYCLIA [id number] [place] [address] [place] Hemoglobin (Bld) [Mass/Vol] 7.8 g/dL Low 11.5-15.5 [facility] Comment on above: Order Comment: Speci men Type: BLOOD SPECIMENOrdering Facility: [facility] Address: [address] [place] [address] Performed By: #### 5 8410-2 ####[facility]ORATORYCLIA [id number] [address] MCH (RBC) [Entitic mass] 30.0 pg Normal 26.0-34.0 [facility] Comment on above: Order Comment: Speci men Type: BLOOD SPECIMENOrdering Facility: [facility] Address: [address] [place] [address] Performed By: #### 5 8410-2 ####[facility]ATORYCLIA [id number] [address] MCHC (RBC) [Mass/Vol] 31.6 g/dL Normal 30.5-36.0 [facility] Comment on above: Order Comment: Speci men Type: BLOOD SPECIMENOrdering Facility: [facility] Address: [address] [place] [address] Performed By: #### 5 8410-2 ####[facility]ATORYCLIA [id number] [address] MCV (RBC) [Entitic vol] 95.0 fL Normal 80.0-100.0 [facility] Comment on above: Order Comment: Speci men Type: BLOOD SPECIMENOrdering Facility: [facility] Address: [address] [place] [address] Performed By: #### 5 8410-2 ####[facility]ORATORYCLIA [id number] [address] Nucleated RBC (Bld) [#/Vol] 0.02 10*3/uL High <0.01 [facility] Comment on above: Order Comment: Speci men Type: BLOOD SPECIMENOrdering Facility: [facility] Address: [address] [place] [address] Performed By: #### 5 8410-2 ####[facility]ORATORYCLIA [id number] [address] Platelet mean volume (Bld) [Entitic vol] 10.8 fL Normal 9.0-12.7 [facility] Comment on above: Order Comment: Speci men Type: BLOOD SPECIMENOrdering Facility: [facility] Address: [address] [place] [address] Performed By: #### 5 8410-2 ####[facility]ORATORYCLIA [id number] [address] OF [place] Platelets (Bld) [#/Vol] 245 10*3/uL Normal 150-400 [facility] Comment on above: Order Comment: Speci men Type: BLOOD SPECIMENOrdering Facility: [facility] Address: [address] [place] [address] Performed By: #### 5 8410-2 ####[facility]ORATORYCLIA [id number] [address] STATES OF [facility] RBC (Bld) [#/Vol] 2.60 10*6/uL Low 3.90-5.20 [facility] Comment on above: Order Comment: Speci men Type: BLOOD SPECIMENOrdering Facility: [facility] Address: [address] [place] [address] Performed By: #### 5 8410-2 ####[facility]ORATORYCLIA [id number] [address] [place] WBC (Bld) [#/Vol] 10.48 10*3/uL Normal 3.70-11.00 [facility] Comment on above: Order Comment: Speci men Type: BLOOD SPECIMENOrdering Facility: [facility] Address: [address] [place] [address] Performed By: #### 5 8410-2 ####[facility]ORATORYCLIA [id number] [address] OF [facility] CT BRAIN WO IVCONon 05-10-20 CT BRAIN WO IVCON Normal [facility] Calcium.ionized [Moles/Vol]o n 05-10-2024 Calcium.ionized (BldV) [Mass/Vol] 1.13 mmol/L Normal 1.08-1.30 [facility] Comment on above: Order Comment: Speci men Type: BLOOD SPECIMENOrdering Facility: [facility] Address: [address] [place] [address] Performed By: #### 1 995-0 ####[facility]ORATORYCLIA [id number] [address] Calcium.ionized adjusted to pH 7.4 (Bld) [Moles/Vol] 1.14 mmol/L Normal 1.08-1.30 [facility] Comment on above: Order Comment: Speci men Type: BLOOD SPECIMENOrdering Facility: [facility] Address: [address] [place] [address] Performed By: #### 1 995-0 ####[facility]ORATORYCLIA [id number] [address] Magnesium SerPl-[facility] 05-10 Magnesium [Mass/Vol] 1.9 mg/dL Normal 1.7-2.3 [facility] Comment on above: Order Comment: Speci men Type: BLOOD SPECIMENOrdering Facility: [facility] Address: [address] [place] [address] Performed By: #### 2 4321-2, , 2777 ####[facility]ORATORYCLIA [id number] [address] OF [place] NURSING PROGon 05-10-2024 NURSING PROG Normal [facility] Phosphate SerPl-mCncon 05-10 Phosphate [Mass/Vol] 2.8 mg/dL Normal 2.7-4.8 [facility] Comment on above: Order Comment: Speci men Type: BLOOD SPECIMENOrdering Facility: [facility] Address: [address] [place] [address] Performed By: #### 2 4321-2, 29711-8, 2777-1 ####[facility]ORATORYCLIA [id number] [address] OF [place] THERAPY NTon 12-11-2024 THERAPY NT Normal [facility] THERAPY NT Normal [facility] THERAPY NT Normal [facility] Basic metabolic 2000 panelon 05-09-2024 Anion gap [Moles/Vol] 12 mmol/L Normal 8-15 [facility] Comment on above: Order Comment: Speci men Type: BLOOD SPECIMENOrdering Facility: [facility] Address: [address] [place] [address] Performed By: #### 2 4321-2, , 2776-05 ####[facility]ORATORYCLIA [id number] [place] [address] [place] Calcium [Mass/Vol] 7.9 mg/dL Low 8.5-10.2 [facility] Comment on above: Order Comment: Speci men Type: BLOOD SPECIMENOrdering Facility: [facility] Address: [address] [place] [address] Performed By: #### 2 4321-2, , 2776-05 ####[facility]ORATORYCLIA [id number] [place] [address] [place] Chloride [Moles/Vol] 103 mmol/L Normal 98-107 [facility] Comment on above: Order Comment: Speci men Type: BLOOD SPECIMENOrdering Facility: [facility] Address: [address] [place] [address] Performed By: #### 2 4321-2, , 2776-05 ####[facility]ORATORYCLIA [id number] [place] [address] [place] CO2 [Moles/Vol] 21 mmol/L Low 22-30 [facility] Comment on above: Order Comment: Speci men Type: BLOOD SPECIMENOrdering Facility: [facility] Address: [address] [place] [address] Performed By: #### 2 4321-2, , 2776-05 ####[facility]ORATORYCLIA [id number] [place] [address] [place] Creatinine [Mass/Vol] 0.56 mg/dL Low 0.58-0.96 [facility] Comment on above: Order Comment: Helen rg Type: BLOOD SPECIMENOrdering Facility: [facility] Address: [address] [place] [address] Performed By: #### 2 4321-2, , 2776-05 ####[facility]ORATORYCLIA [id number] [place] [phone] [place] Creatinine and Glomerular filtration rate.predicted panel (S/P/Bld) 91 mL/min/1.73m??? Normal >=60 [facility] Comment on above: Order Comment: Helen rg Type: BLOOD SPECIMENOrdering Facility: [facility] Address: [address] [place] [address] Result Comment: Kaylene mated Glomerular Filtration Rate [...] Performed By: #### 2 4321-2, , 2776-05 ####[facility]ORATORYCLIA [id number] [place] [id number] [place] Glucose [Mass/Vol] 150 mg/dL High 74-99 [facility] Comment on above: Order Comment: Helen rg Type: BLOOD SPECIMENOrdering Facility: [facility] Address: [address] [place] [address] Result Comment: The [place] Diabetes [employer] (ADA) provides guidance for cutoff [...] Standards of Medical Care in Diabetes 2016, [place] [employer]. Diabetes Care. 2016.39(Suppl 1). Performed By: #### 2 4321-2, 28881-6, 2776-05 ####[facility]ORATORYCLIA [id number] [place] [address] [place] Potassium [Moles/Vol] 4.3 mmol/L Normal 3.7-5.1 [facility] Comment on above: Order Comment: Speci men Type: BLOOD SPECIMENOrdering Facility: [facility] Address: [address] [place] [address] Performed By: #### 2 4321-2, , 2776-05 ####[facility]ORATORYCLIA [id number] [place] [address] [place] Sodium [Moles/Vol] 136 mmol/L Normal 136-144 [facility] Comment on above: Order Comment: Speci men Type: BLOOD SPECIMENOrdering Facility: [facility] Address: [address] [place] [address] Performed By: #### 2 4321-2, , 2776-05 ####[facility]ORATORYCLIA [id number] [address] [place] Urea nitrogen [Mass/Vol] 16 mg/dL Normal 7-21 [facility] Comment on above: Order Comment: Speci men Type: BLOOD SPECIMENOrdering Facility: [facility] Address: [address] [place] [address] Performed By: #### 2 4321-2, , 27711-28 ####[facility]ORATORYCLIA [id number] [place] [id number] [place] CBC panel Auto (Bld)on 05-09 Erythrocyte distribution width (RBC) [Ratio] 16.1 % High 11.5-15.0 [facility] Comment on above: Order Comment: Speci men Type: BLOOD SPECIMENOrdering Facility: [facility] Address: [address] [place] [address] Performed By: #### 5 8410-2 ####[facility] [id number] [address] OF [facility] Hematocrit (Bld) [Volume fraction] 20.4 % Low 36.0-46.0 [facility] Comment on above: Order Comment: Speci men Type: BLOOD SPECIMENOrdering Facility: [facility] Address: [address] [place] [address] Performed By: #### 5 8410-2 ####[facility]ORATORYCLIA [id number] [address] Hemoglobin (Bld) [Mass/Vol] 6.4 g/dL Low 11.5-15.5 [facility] Comment on above: Order Comment: Speci men Type: BLOOD SPECIMENOrdering Facility: [facility] Address: [address] [place] [address] Performed By: #### 5 8410-2 ####[facility]ORATORYCLIA [id number] [address] STATES [facility] MCH (RBC) [Entitic mass] 29.9 pg Normal 26.0-34.0 [facility] Comment on above: Order Comment: Speci men Type: BLOOD SPECIMENOrdering Facility: [facility] Address: [address] [place] [address] Performed By: #### 5 8410-2 ####[facility]ORATORYCLIA [id number] [address] [place] MCHC (RBC) [Mass/Vol] 31.4 g/dL Normal 30.5-36.0 [facility] Comment on above: Order Comment: Speci men Type: BLOOD SPECIMENOrdering Facility: [facility] Address: [address] [place] [address] Performed By: #### 5 8410-2 ####[facility]ORATORYCLIA [id number] [address] MCV (RBC) [Entitic vol] 95.3 fL Normal 80.0-100.0 [facility] Comment on above: Order Comment: Speci men Type: BLOOD SPECIMENOrdering Facility: [facility] Address: [address] [place] [address] Performed By: #### 5 8410-2 ####[facility]ORATORYCLIA [id number] [address] [place] Nucleated RBC (Bld) [#/Vol] 0.02 10*3/uL High <0.01 [facility] Comment on above: Order Comment: Speci men Type: BLOOD SPECIMENOrdering Facility: [facility] Address: [address] [place] [address] Performed By: #### 5 8410-2 ####[facility]ORATORYCLIA [id number] [address] OF [place] Platelet mean volume (Bld) [Entitic vol] 11.0 fL Normal 9.0-12.7 [facility] Comment on above: Order Comment: Speci men Type: BLOOD SPECIMENOrdering Facility: [facility] Address: [address] [place] [address] Performed By: #### 5 8410-2 ####[facility]ORATORYCLIA [id number] [address] [place] Platelets (Bld) [#/Vol] 219 10*3/uL Normal 150-400 [facility] Comment on above: Order Comment: Speci men Type: BLOOD SPECIMENOrdering Facility: [facility] Address: [address] [place] [address] Performed By: #### 5 8410-2 ####[facility]ORATORYCLIA [id number] [address] [place] RBC (Bld) [#/Vol] 2.14 10*6/uL Low 3.90-5.20 [facility] Comment on above: Order Comment: Speci men Type: BLOOD SPECIMENOrdering Facility: [facility] Address: [address] [place] [address] Performed By: #### 5 8410-2 ####[facility]ORATORYCLIA [id number] [place] [address] [place] WBC (Bld) [#/Vol] 10.06 10*3/uL Normal 3.70-11.00 [facility] Comment on above: Order Comment: Speci men Type: BLOOD SPECIMENOrdering Facility: [facility] Address: [address] [place] [address] Performed By: #### 5 8410-2 ####[facility]ATORYCLIA [id number] [address] Calcium.ionized [Moles/Vol]o n 05-09-2024 Calcium.ionized (BldV) [Mass/Vol] 1.20 mmol/L Normal 1.08-1.30 [facility] Comment on above: Order Comment: Speci men Type: BLOOD SPECIMENOrdering Facility: [facility] Address: [address] [place] [address] Performed By: #### 1 995-0 ####[facility]ATORYCLIA [id number] [address] Calcium.ionized adjusted to pH 7.4 (Bld) [Moles/Vol] 1.17 mmol/L Normal 1.08-1.30 [facility] Comment on above: Order Comment: Speci men Type: BLOOD SPECIMENOrdering Facility: [facility] Address: [address] [place] [address] Performed By: #### 1 995-0 ####[facility]ATORYCLIA [id number] [address] [place] Hematocrit Auto (Bld) [Volum e fraction]on 05-09-2024 Hematocrit (Bld) [Volume fraction] 20.4 % Low 36.0-46.0 [facility] Comment on above: Order Comment: Speci men Type: BLOOD SPECIMENOrdering Facility: [facility] Address: [address] [place] [address] Performed By: #### 4 544-3, 718-7 ####[facility]ATORYCLIA [id number] [address] [place] Hgb Bld-mCncon 05-09-2024 Hemoglobin (Bld) [Mass/Vol] 7.4 g/dL Low 11.5-15.5 [facility] Comment on above: Order Comment: Speci men Type: BLOOD SPECIMENOrdering Facility: [facility] Address: [address] [place] [address] Performed By: #### 7 18-7 ####[facility]ATORYCLIA [id number] [address] Hemoglobin (Bld) [Mass/Vol] 6.5 g/dL Low 11.5-15.5 [facility] Comment on above: Order Comment: Speci men Type: BLOOD SPECIMENOrdering Facility: [facility] Address: [address] [place] [address] Performed By: #### 4 544-3, 718-7 ####[facility]ORATORYCLIA [id number] [address] Magnesium SerPl-[facility] 05-09 Magnesium [Mass/Vol] 2.0 mg/dL Normal 1.7-2.3 [facility] Comment on above: Order Comment: Speci men Type: BLOOD SPECIMENOrdering Facility: [facility] Address: [address] [place] [address] Performed By: #### 2 4321-2, , 7- ####[facility]ATORYCLIA [id number] [address] PT EDon 05-09-2024 PT ED Normal [facility] Phosphate SerPl-mCncon 05-09 Phosphate [Mass/Vol] 2.9 mg/dL Normal 2.7-4.8 [facility] Comment on above: Order Comment: Speci men Type: BLOOD SPECIMENOrdering Facility: [facility] Address: [address] [place] [address] Performed By: #### 2 4321-2, 81172-4, 2777-1 ####[facility]ATORYCLIA [id number] [address] THERAPY NTon 05-09-2024 THERAPY NT Normal [facility] THERAPY NT Normal [facility] Basic metabolic 2000 panelon 05-08-2024 Anion gap [Moles/Vol] 9 mmol/L Normal 8-15 [facility] Comment on above: Order Comment: Speci men Type: BLOOD SPECIMENOrdering Facility: [facility] Address: [address] [place] [address] Performed By: #### 2 4321-2 ####[facility]ORATORYCLIA [id number] [place] [address] [place] Calcium [Mass/Vol] 8.1 mg/dL Low 8.5-10.2 [facility] Comment on above: Order Comment: Speci men Type: BLOOD SPECIMENOrdering Facility: [facility] Address: [address] [place] [address] Performed By: #### 2 4321-2 ####[facility]ORATORYCLIA [id number] [place] [address] [place] Chloride [Moles/Vol] 110 mmol/L High 98-107 [facility] Comment on above: Order Comment: Speci men Type: BLOOD SPECIMENOrdering Facility: [facility] Address: [address] [place] [address] Performed By: #### 2 4321-2 ####[facility]ORATORYCLIA [id number] [place] [address] [place] CO2 [Moles/Vol] 21 mmol/L Low 22-30 [facility] Comment on above: Order Comment: Speci men Type: BLOOD SPECIMENOrdering Facility: [facility] Address: [address] [place] [address] Performed By: #### 2 4321-2 ####[facility]ORATORYCLIA [id number] [place] [address] [place] Creatinine [Mass/Vol] 0.65 mg/dL Normal 0.58-0.96 [facility] Comment on above: Order Comment: Speci men Type: BLOOD SPECIMENOrdering Facility: [facility] Address: [address] [place] [address] Performed By: #### 2 4321-2 ####[facility]ORATORYCLIA [id number] [place] [id number] [place] [facility] Creatinine and Glomerular filtration rate.predicted panel (S/P/Bld) 88 mL/min/1.73m??? Normal >=60 [facility] Comment on above: Order Comment: Helen gr Type: BLOOD SPECIMENOrdering Facility: [facility] Address: [address] [place] [address] Result Comment: Kaylene mated Glomerular Filtration Rate [...] actual GFR. Performed By: #### 2 4321-2 ####[facility]ITALCLIA [id number] [place] [address] [place] Glucose [Mass/Vol] 168 mg/dL High 74-99 [facility] Comment on above: Order Comment: Helen rg Type: BLOOD SPECIMENOrdering Facility: [facility] Address: [address] [place] [address] Result Comment: The [employer] [employer] (ADA) provides guidance for cutoff [...] Standards of Medical Care in Diabetes 2016, [employer]. Diabetes Care. 2016.39(Suppl 1). Performed By: #### 2 4321-2 ####[facility]ORATORYCLIA [id number] [place] [id number] [place] Potassium [Moles/Vol] 5.1 mmol/L Normal 3.7-5.1 [facility] Comment on above: Order Comment: Speci men Type: BLOOD SPECIMENOrdering Facility: [facility] Address: [address] [place] [address] Performed By: #### 2 4321-2 ####[facility]ORATORYCLIA [id number] [place] [address] [place] Sodium [Moles/Vol] 140 mmol/L Normal 136-144 [facility] Comment on above: Order Comment: Speci men Type: BLOOD SPECIMENOrdering Facility: [facility] Address: [address] [place] [address] Performed By: #### 2 4321-2 ####[facility] [facility]ORATORYCLIA [id number] [place] [address] [place] Urea nitrogen [Mass/Vol] 18 mg/dL Normal 7-21 [facility] Comment on above: Order Comment: Speci men Type: BLOOD SPECIMENOrdering Facility: [facility] Address: [address] [place] [address] Performed By: #### 2 4321-2 ####[facility]ORATORYCLIA [id number] [place] [address] [place] Anion gap [Moles/Vol] 8 mmol/L Normal 8-15 [facility] Comment on above: Order Comment: Speci men Type: BLOOD SPECIMENOrdering Facility: [facility] Address: [address] [place] [address] Performed By: #### 2 4321-2 ####[facility]ORATORYCLIA [id number] [place] [address] [place] Calcium [Mass/Vol] 8.4 mg/dL Low 8.5-10.2 [facility] Comment on above: Order Comment: Speci men Type: BLOOD SPECIMENOrdering Facility: [facility] Address: [address] [place] [address] Performed By: #### 2 4321-2 ####[facility]ORATORYCLIA [id number] [address] OF [facility] Chloride [Moles/Vol] 109 mmol/L High 98-107 [facility] Comment on above: Order Comment: Speci men Type: BLOOD SPECIMENOrdering Facility: [facility] Address: [address] [place] [address] Performed By: #### 2 4321-2 ####[facility] LABORATORYCLIA [id number] [address] OF [facility] CO2 [Moles/Vol] 20 mmol/L Low 22-30 [facility] Comment on above: Order Comment: Speci men Type: BLOOD SPECIMENOrdering Facility: [facility] Address: [address] [place] [address] Performed By: #### 2 4321-2 ####[facility]PITALIA [id number] [address] OF [facility] Creatinine [Mass/Vol] 0.74 mg/dL Normal 0.58-0.96 [facility] Comment on above: Order Comment: Speci men Type: BLOOD SPECIMENOrdering Facility: [facility] Address: [address] [place] [address] Performed By: #### 2 4321-2 ####[facility] LABORATORYCLIA [id number] [address] Creatinine and Glomerular filtration rate.predicted panel (S/P/Bld) 81 mL/min/1.73m??? Normal >=60 [facility] Comment on above: Order Comment: Speci men Type: BLOOD SPECIMENOrdering Facility: [facility] Address: [address] [place] [address] Result Comment: Kaylene mated Glomerular Filtration Rate [...] actual GFR. Performed By: #### 2 4321-2 ####[facility] LABORATORYCLIA [id number] [place] [address] [place] Glucose [Mass/Vol] 168 mg/dL High 74-99 [facility] Comment on above: Order Comment: Helen rg Type: BLOOD SPECIMENOrdering Facility: [facility] Address: [address] [place] [address] Result Comment: The [place] [employer] Association (ADA) provides guidance for cutoff [...] Standards of Medical Care in Diabetes 2016, [employer] [employer]. Diabetes Care. 2016.39(Suppl 1). Performed By: #### 2 4321-2 ####[facility] LABORATORYCLIA [id number] [place] [address] [place] Potassium [Moles/Vol] 5.2 mmol/L High 3.7-5.1 [facility] Comment on above: Order Comment: Helen rg Type: BLOOD SPECIMENOrdering Facility: [facility] Address: [address] [place] [address] Performed By: #### 2 4321-2 ####[facility] LABORATORYCLIA [id number] [place] [address] [place] Sodium [Moles/Vol] 137 mmol/L Normal 136-144 [facility] Comment on above: Order Comment: Helen rg Type: BLOOD SPECIMENOrdering Facility: [facility] Address: [address] [place] [address] Performed By: #### 2 4321-2 ####[facility] LABORATORYCLIA [id number] [place] [address] [place] Urea nitrogen [Mass/Vol] 17 mg/dL Normal 7-21 [facility] Comment on above: Order Comment: Speci men Type: BLOOD SPECIMENOrdering Facility: [facility] Address: [address] [place] [address] Performed By: #### 2 4321-2 ####[facility]ORATORYCLIA [id number] [place] [address] [place] Anion gap [Moles/Vol] 8 mmol/L Normal 8-15 [facility] Comment on above: Order Comment: Speci men Type: BLOOD SPECIMENOrdering Facility: [facility] Address: [address] [place] [address] Performed By: #### 2 4321-2, 44623-7 ####[facility]ORATORYCLIA [id number] [place] [address] [place] Calcium [Mass/Vol] 8.6 mg/dL Normal 8.5-10.2 [facility] Comment on above: Order Comment: Speci men Type: BLOOD SPECIMENOrdering Facility: [facility] Address: [address] [place] [address] Performed By: #### 2 4321-2, 49318-8 ####[facility]ORATORYCLIA [id number] [place] [address] [place] Chloride [Moles/Vol] 109 mmol/L High 98-107 [facility] Comment on above: Order Comment: Speci men Type: BLOOD SPECIMENOrdering Facility: [facility] Address: [address] [place] [address] Performed By: #### 2 4321-2, 39595-2 ####[facility]ORATORYCLIA [id number] [place] [address] [place] CO2 [Moles/Vol] 20 mmol/L Low 22-30 [facility] Comment on above: Order Comment: Speci men Type: BLOOD SPECIMENOrdering Facility: [facility] Address: [address] [place] [address] Performed By: #### 2 4321-2, 66579-3 ####[facility] LABORATORYCLIA [id number] [address] STATES OF [facility] Creatinine [Mass/Vol] 0.72 mg/dL Normal 0.58-0.96 [facility] Comment on above: Order Comment: Helen rg Type: BLOOD SPECIMENOrdering Facility: [facility] Address: [address] [place] [address] Performed By: #### 2 4321-2, 96067-7 ####[facility] LABORATORYCLIA [id number] [address] Creatinine and Glomerular filtration rate.predicted panel (S/P/Bld) 84 mL/min/1.73m??? Normal >=60 [facility] Comment on above: Order Comment: Helen rg Type: BLOOD SPECIMENOrdering Facility: [facility] Address: [address] [place] [address] Result Comment: Kaylene mated Glomerular Filtration Rate [...] actual GFR. Performed By: #### 2 4321-2, 22708-0 ####[facility]ORATORYCLIA [id number] [address] STATES OF [facility] Glucose [Mass/Vol] 152 mg/dL High 74-99 [facility] Comment on above: Order Comment: Helen rg Type: BLOOD SPECIMENOrdering Facility: [facility] Address: [address] [place] [address] Result Comment: The [place] Diabetes Association (ADA) provides guidance for cutoff [...] Standards of Medical Care in Diabetes 2016, [employer] [employer]. Diabetes Care. 2016.39(Suppl 1). Performed By: #### 2 4321-2, 25663-6 ####[facility]ORATORYCLIA [id number] [place] [address] [place] Potassium [Moles/Vol] 5.2 mmol/L High 3.7-5.1 [facility] Comment on above: Order Comment: Speci men Type: BLOOD SPECIMENOrdering Facility: [facility] Address: [address] [place] [address] Performed By: #### 2 4321-2, 82372-1 ####[facility]ORATORYCLIA [id number] [address] [place] Sodium [Moles/Vol] 137 mmol/L Normal 136-144 [facility] Comment on above: Order Comment: Speci men Type: BLOOD SPECIMENOrdering Facility: [facility] Address: [address] [place] [address] Performed By: #### 2 4321-2, 08767-9 ####[facility]ORATORYCLIA [id number] [place] [address] [place] Urea nitrogen [Mass/Vol] 18 mg/dL Normal 7-21 [facility] Comment on above: Order Comment: Speci men Type: BLOOD SPECIMENOrdering Facility: [facility] Address: [address] [place] [address] Performed By: #### 2 4321-2, 75492-1 ####[facility]ORATORYCLIA [id number] [place] [address] [place] Anion gap [Moles/Vol] 9 mmol/L Normal 8-15 [facility] Comment on above: Order Comment: Speci men Type: BLOOD SPECIMENOrdering Facility: [facility] Address: [address] [place] [address] Performed By: #### 2 4321-2 ####[facility]ORATORYCLIA [id number] [place] [address] [place] Calcium [Mass/Vol] 8.5 mg/dL Normal 8.5-10.2 [facility] Comment on above: Order Comment: Speci men Type: BLOOD SPECIMENOrdering Facility: [facility] Address: [address] [place] [address] Performed By: #### 2 4321-2 ####[facility]ORATORYCLIA [id number] [place] [address] [place] Chloride [Moles/Vol] 104 mmol/L Normal 98-107 [facility] Comment on above: Order Comment: Speci men Type: BLOOD SPECIMENOrdering Facility: [facility] Address: [address] [place] [address] Performed By: #### 2 4321-2 ####[facility]ORATORYCLIA [id number] [place] [address] [place] CO2 [Moles/Vol] 19 mmol/L Low 22-30 [facility] Comment on above: Order Comment: Speci men Type: BLOOD SPECIMENOrdering Facility: [facility] Address: [address] [place] [address] Performed By: #### 2 4321-2 ####[facility]ORATORYCLIA [id number] [address] [place] Creatinine [Mass/Vol] 0.64 mg/dL Normal 0.58-0.96 [facility] Comment on above: Order Comment: Speci men Type: BLOOD SPECIMENOrdering Facility: [facility] Address: [address] [place] [address] Performed By: #### 2 4321-2 ####[facility] LABORATORYCLIA [id number] [address] [place] Creatinine and Glomerular filtration rate.predicted panel (S/P/Bld) 88 mL/min/1.73m??? Normal >=60 [facility] Comment on above: Order Comment: Speci men Type: BLOOD SPECIMENOrdering Facility: [facility] Address: [address] [place] [address] Result Comment: Kaylene mated Glomerular Filtration Rate [...] actual GFR. Performed By: #### 2 4321-2 ####[facility]ORATORYCLIA [id number] [place] [address] [place] Glucose [Mass/Vol] 251 mg/dL High 74-99 [facility] Comment on above: Order Comment: Helen rg Type: BLOOD SPECIMENOrdering Facility: [facility] Address: [address] [place] [address] Result Comment: The [employer] Diabetes Association (ADA) provides guidance for cutoff [...] Standards of Medical Care in Diabetes 2016, [employer] [employer]. Diabetes Care. 2016.39(Suppl 1). Performed By: #### 2 4321-2 ####[facility] LABORATORYCLIA [id number] [place] [id number] [place] Potassium [Moles/Vol] 5.7 mmol/L High 3.7-5.1 [facility] Comment on above: Order Comment: Helen rg Type: BLOOD SPECIMENOrdering Facility: [facility] Address: [address] [place] [address] Performed By: #### 2 4321-2 ####[facility]ORATORYCLIA [id number] [place] [address] [place] Sodium [Moles/Vol] 132 mmol/L Low 136-144 [facility] Comment on above: Order Comment: Speci men Type: BLOOD SPECIMENOrdering Facility: [facility] Address: [address] [place] [address] Performed By: #### 2 4321-2 ####[facility]ORATORYCLIA [id number] [place] [address] [place] Urea nitrogen [Mass/Vol] 19 mg/dL Normal 7-21 [facility] Comment on above: Order Comment: Speci men Type: BLOOD SPECIMENOrdering Facility: [facility] Address: [address] [place] [address] Performed By: #### 2 4321-2 ####[facility]ORATORYCLIA [id number] [place] [address] [place] Anion gap [Moles/Vol] 12 mmol/L Normal 8-15 [facility] Comment on above: Order Comment: Speci men Type: BLOOD SPECIMENOrdering Facility: [facility] Address: [address] [place] [address] Performed By: #### 2 4321-2, 2776-05, ####[facility]ORATORYCLIA [id number] [place] [address] [place] Calcium [Mass/Vol] 8.4 mg/dL Low 8.5-10.2 [facility] Comment on above: Order Comment: Speci men Type: BLOOD SPECIMENOrdering Facility: [facility] Address: [address] [place] [address] Performed By: #### 2 4321-2, 2776-05, ####[facility]ORATORYCLIA [id number] [place] [address] [place] Chloride [Moles/Vol] 105 mmol/L Normal 98-107 [facility] Comment on above: Order Comment: Speci men Type: BLOOD SPECIMENOrdering Facility: [facility] Address: [address] [place] [address] Performed By: #### 2 4321-2, 2776-05, ####[facility]ORATORYCLIA [id number] [place] [address] [place] CO2 [Moles/Vol] 16 mmol/L Low 22-30 [facility] Comment on above: Order Comment: Speci men Type: BLOOD SPECIMENOrdering Facility: [facility] Address: [address] [place] [address] Performed By: #### 2 4321-2, 2777-, ####[facility] LABORATORYCLIA [id number] [place] [id number] [place] Creatinine [Mass/Vol] 0.70 mg/dL Normal 0.58-0.96 [facility] Comment on above: Order Comment: Speci men Type: BLOOD SPECIMENOrdering Facility: [facility] Address: [address] [place] [address] Performed By: #### 2 4321-2, 2777, ####[facility]PITALIA [id number] [address] Creatinine and Glomerular filtration rate.predicted panel (S/P/Bld) 86 mL/min/1.73m??? Normal >=60 [facility] Comment on above: Order Comment: Speci men Type: BLOOD SPECIMENOrdering Facility: [facility] Address: [address] [place] [address] Result Comment: Kaylene mated Glomerular Filtration Rate [...] GFR. Performed By: #### 2 4321-2, 2777-, ####[facility]ORATORYCLIA [id number] [place] [address] [place] Glucose [Mass/Vol] 247 mg/dL High 74-99 [facility] Comment on above: Order Comment: Speci men Type: BLOOD SPECIMENOrdering Facility: [facility] Address: [address] [place] [address] Result Comment: The [place] Diabetes Association (ADA) provides guidance for cutoff [...] Standards of Medical Care in Diabetes 2016, [place] [employer]. Diabetes Care. 2016.39(Suppl 1). Performed By: #### 2 4321-2, 2776-05, ####[facility]ORATORYCLIA [id number] [place] [address] [place] Potassium [Moles/Vol] 6.2 mmol/L Critically high 3.7-5.1 [facility] Comment on above: Order Comment: Speci men Type: BLOOD SPECIMENOrdering Facility: [facility] Address: [address] [place] [address] Performed By: #### 2 4321-2, 2776-05, ####[facility]ORATORYCLIA [id number] [place] [address] [place] Sodium [Moles/Vol] 133 mmol/L Low 136-144 [facility] Comment on above: Order Comment: Speci men Type: BLOOD SPECIMENOrdering Facility: [facility] Address: [address] [place] [address] Performed By: #### 2 4321-2, 2776-05, ####[facility]ORATORYCLIA [id number] [place] [address] [place] Urea nitrogen [Mass/Vol] 19 mg/dL Normal 7-21 [facility] Comment on above: Order Comment: Speci men Type: BLOOD SPECIMENOrdering Facility: [facility] Address: [address] [place] [address] Performed By: #### 2 4321-2, 2777-1, 41484-9 ####[facility]ORATORYCLIA [id number] [address] [place] CASE MGT INIT ASSESon 2023 CASE MGT INIT ASSES Normal [facility] CBC panel Auto (Bld)on 05-08 Erythrocyte distribution width (RBC) [Ratio] 16.1 % High 11.5-15.0 [facility] Comment on above: Order Comment: Speci men Type: BLOOD SPECIMENOrdering Facility: [facility] Address: [address] [place] [address] Performed By: #### 5 8410-2 ####[facility]ORATORYCLIA [id number] [address] STATES [facility] Hematocrit (Bld) [Volume fraction] 25.6 % Low 36.0-46.0 [facility] Comment on above: Order Comment: Speci men Type: BLOOD SPECIMENOrdering Facility: [facility] Address: [address] [place] [address] Performed By: #### 5 8410-2 ####[facility]ORATORYCLIA [id number] [address] [place] Hemoglobin (Bld) [Mass/Vol] 8.1 g/dL Low 11.5-15.5 [facility] Comment on above: Order Comment: Speci men Type: BLOOD SPECIMENOrdering Facility: [facility] Address: [address] [place] [address] Performed By: #### 5 8410-2 ####[facility]ORATORYCLIA [id number] [address] [place] MCH (RBC) [Entitic mass] 29.9 pg Normal 26.0-34.0 [facility] Comment on above: Order Comment: Speci men Type: BLOOD SPECIMENOrdering Facility: [facility] Address: [address] [place] [address] Performed By: #### 5 8410-2 ####[facility]ORATORYCLIA [id number] [address] [place] MCHC (RBC) [Mass/Vol] 31.6 g/dL Normal 30.5-36.0 [facility] Comment on above: Order Comment: Speci men Type: BLOOD SPECIMENOrdering Facility: [facility] Address: [address] [place] [address] Performed By: #### 5 8410-2 ####[facility]ORATORYCLIA [id number] [address] MCV (RBC) [Entitic vol] 94.5 fL Normal 80.0-100.0 [facility] Comment on above: Order Comment: Speci men Type: BLOOD SPECIMENOrdering Facility: [facility] Address: [address] [place] [address] Performed By: #### 5 8410-2 ####[facility]ORATORYCLIA [id number] [address] Nucleated RBC (Bld) [#/Vol] 0.02 10*3/uL High <0.01 [facility] Comment on above: Order Comment: Speci men Type: BLOOD SPECIMENOrdering Facility: [facility] Address: [address] [place] [address] Performed By: #### 5 8410-2 ####[facility]ORATORYCLIA [id number] [address] [place] Platelet mean volume (Bld) [Entitic vol] 10.7 fL Normal 9.0-12.7 [facility] Comment on above: Order Comment: Speci men Type: BLOOD SPECIMENOrdering Facility: [facility] Address: [address] [place] [address] Performed By: #### 5 8410-2 ####[facility]ATORYCLIA [id number] [address] [place] Platelets (Bld) [#/Vol] 266 10*3/uL Normal 150-400 [facility] Comment on above: Order Comment: Speci men Type: BLOOD SPECIMENOrdering Facility: [facility] Address: [address] [place] [address] Performed By: #### 5 8410-2 ####[facility]ORATORYCLIA [id number] [address] OF [facility] RBC (Bld) [#/Vol] 2.71 10*6/uL Low 3.90-5.20 [facility] Comment on above: Order Comment: Speci men Type: BLOOD SPECIMENOrdering Facility: [facility] Address: [address] [place] [address] Performed By: #### 5 8410-2 ####[facility]ORATORYCLIA [id number] [address] OF [facility] WBC (Bld) [#/Vol] 14.54 10*3/uL High 3.70-11.00 [facility] Comment on above: Order Comment: Speci men Type: BLOOD SPECIMENOrdering Facility: [facility] Address: [address] [place] [address] Performed By: #### 5 8410-2 ####[facility]ATORYCLIA [id number] [address] CONSULT PROGon 05-08-2024 CONSULT PROG Normal [facility] Calcium.ionized [Moles/Vol]o n 05-08-2024 Calcium.ionized (BldV) [Mass/Vol] 1.23 mmol/L Normal 1.08-1.30 [facility] Comment on above: Order Comment: Speci men Type: BLOOD SPECIMENOrdering Facility: [facility] Address: [address] [place] [address] Performed By: #### 1 995-0 ####[facility]ATORYCLIA [id number] [address] Calcium.ionized adjusted to pH 7.4 (Bld) [Moles/Vol] 1.17 mmol/L Normal 1.08-1.30 [facility] Comment on above: Order Comment: Speci men Type: BLOOD SPECIMENOrdering Facility: [facility] Address: [address] [place] [address] Performed By: #### 1 995-0 ####[facility]ATORYCLIA [id number] [address] ECG COMPLETEon 05-08-2024 ECG COMPLETE Normal [facility] Magnesium SerPl-mCncon 05-08 Magnesium [Mass/Vol] 2.2 mg/dL Normal 1.7-2.3 [facility] Comment on above: Order Comment: Speci men Type: BLOOD SPECIMENOrdering Facility: [facility] Address: [address] [place] [address] Performed By: #### 2 4321-2, 2777-1, 11683-5 ####[facility]ATORYCLIA [id number] [address] [place] NURSING PROGon 05-08-2024 NURSING PROG Normal [facility] Phosphate SerPl-mCncon 05-08 Phosphate [Mass/Vol] 3.7 mg/dL Normal 2.7-4.8 [facility] Comment on above: Order Comment: Speci men Type: BLOOD SPECIMENOrdering Facility: [facility] Address: [address] [place] [address] Performed By: #### 2 4321-2, 2777-1, 20704-6 ####[facility] [id number] [address] Procalcitonin SerPl-mCncon 1 07-09-2023 Procalcitonin [Mass/Vol] 0.22 ng/mL High <0.09 [facility] Comment on above: Order Comment: Speci men Type: BLOOD SPECIMENOrdering Facility: [facility] Address: [address] [place] [address] Result Comment: For a guided interpretation of test results, please visit the Change in Procalcitonin Calculator, [email or web address]. Performed By: #### 2 4321-2, 29544-3 ####[facility]ATORYCLIA [id number] [place] [address] [place] THERAPY NTon 05-08-2024 THERAPY NT Normal [facility] THERAPY NT Normal [facility] XR CHEST 1V FRONTALon 2023 XR CHEST 1V FRONTAL Normal [facility] ANES POSTPROC EVALon 024 ANES POSTPROC EVAL Normal [facility] ANES PRE-OPon 05-07-2024 ANES PRE-OP Normal [facility] BRIEF OP NOTon 05-07-2024 BRIEF OP NOT Normal [facility] Basic metabolic 2000 panelon 05-07-2024 Anion gap [Moles/Vol] 8 mmol/L Normal 8-15 [facility] Comment on above: Order Comment: Speci men Type: BLOOD SPECIMENOrdering Facility: [facility] Address: [address] [place] [address] Performed By: #### 2 4321-2 ####[facility]ORATORYCLIA [id number] [place] [address] [place] Calcium [Mass/Vol] 8.2 mg/dL Low 8.5-10.2 [facility] Comment on above: Order Comment: Speci men Type: BLOOD SPECIMENOrdering Facility: [facility] Address: [address] [place] [address] Performed By: #### 2 4321-2 ####[facility]ORATORYCLIA [id number] [place] [address] [place] Chloride [Moles/Vol] 111 mmol/L High 98-107 [facility] Comment on above: Order Comment: Speci men Type: BLOOD SPECIMENOrdering Facility: [facility] Address: [address] [place] [address] Performed By: #### 2 4321-2 ####[facility]ATORYCLIA [id number] [place] [address] [place] CO2 [Moles/Vol] 18 mmol/L Low 22-30 [facility] Comment on above: Order Comment: Speci men Type: BLOOD SPECIMENOrdering Facility: [facility] Address: [address] [place] [address] Performed By: #### 2 4321-2 ####[facility]ORATORYCLIA [id number] [place] [id number] [place] Creatinine [Mass/Vol] 0.57 mg/dL Low 0.58-0.96 [facility] Comment on above: Order Comment: [facility] Type: BLOOD SPECIMENOrdering Facility: [facility] Address: [address] [place] [address] Performed By: #### 2 4321-2 ####[facility]ORATORYCLIA [id number] [address] Creatinine and Glomerular filtration rate.predicted panel (S/P/Bld) 91 mL/min/1.73m??? Normal >=60 [facility] Comment on above: Order Comment: [facility] Type: BLOOD SPECIMENOrdering Facility: [facility] Address: [address] [place] [address] Result Comment: Kaylene mated Glomerular Filtration Rate [...] actual GFR. Performed By: #### 2 4321-2 ####[facility]ORATORYCLIA [id number] [place] [id number] [place] Glucose [Mass/Vol] 179 mg/dL High 74-99 [facility] Comment on above: Order Comment: [facility] Type: BLOOD SPECIMENOrdering Facility: [facility] Address: [address] [place] [address] Result Comment: The [place] [employer] (ADA) provides guidance for cutoff [...] Standards of Medical Care in Diabetes 2016, [place] [employer]. Diabetes Care. 2016.39(Suppl 1). Performed By: #### 2 4321-2 ####[facility] LABORATORYCLIA [id number] [place] [address] [place] Potassium [Moles/Vol] 7.3 mmol/L Critically high 3.7-5.1 [facility] Comment on above: Order Comment: Speci men Type: BLOOD SPECIMENOrdering Facility: [facility] Address: [address] [place] [address] Performed By: #### 2 4321-2 ####[facility] LABORATORYCLIA [id number] [place] [address] [place] Sodium [Moles/Vol] 137 mmol/L Normal 136-144 [facility] Comment on above: Order Comment: Speci men Type: BLOOD SPECIMENOrdering Facility: [facility] Address: [address] [place] [address] Performed By: #### 2 4321-2 ####[facility] LABORATORYCLIA [id number] [place] [address] [place] Urea nitrogen [Mass/Vol] 16 mg/dL Normal 7-21 [facility] Comment on above: Order Comment: Speci men Type: BLOOD SPECIMENOrdering Facility: [facility] Address: [address] [place] [address] Performed By: #### 2 4321-2 ####[facility] LABORATORYCLIA [id number] [place] [address] [place] Anion gap [Moles/Vol] 9 mmol/L Normal 8-15 [facility] Comment on above: Order Comment: Speci men Type: BLOOD SPECIMENOrdering Facility: [facility] Address: [address] [place] [address] Performed By: #### 2 777-1, 65549-3, ####[facility] LABORATORYCLIA [id number] [place] [address] [place] Calcium [Mass/Vol] 4.8 mg/dL Low 8.5-10.2 [facility] Comment on above: Order Comment: Speci men Type: BLOOD SPECIMENOrdering Facility: [facility] Address: [address] [place] [address] Performed By: #### 2 777-1, , ####[facility]ORATORYCLIA [id number] [place] [address] [place] Chloride [Moles/Vol] 123 mmol/L High 98-107 [facility] Comment on above: Order Comment: Speci men Type: BLOOD SPECIMENOrdering Facility: [facility] Address: [address] [place] [address] Performed By: #### 2 777-1, , ####[facility]ORATORYCLIA [id number] [place] [address] [place] CO2 [Moles/Vol] 12 mmol/L Low 22-30 [facility] Comment on above: Order Comment: Speci men Type: BLOOD SPECIMENOrdering Facility: [facility] Address: [address] [place] [address] Performed By: #### 2 777-1, , ####[facility]ORATORYCLIA [id number] [place] [address] [place] Creatinine [Mass/Vol] 0.45 mg/dL Low 0.58-0.96 [facility] Comment on above: Order Comment: Speci men Type: BLOOD SPECIMENOrdering Facility: [facility] Address: [address] [place] [address] Performed By: #### 2 777-1, , ####[facility]ORATORYCLIA [id number] [place] [address] [place] Creatinine and Glomerular filtration rate.predicted panel (S/P/Bld) 96 mL/min/1.73m??? Normal >=60 [facility] Comment on above: Order Comment: Helen rg Type: BLOOD SPECIMENOrdering Facility: [facility] Address: [address] [place] [address] Result Comment: Kaylene mated Glomerular Filtration Rate [...] actual GFR. Performed By: #### 2 777-1, 47587-0, 81921-3 ####[facility] [id number] [place] [address] [place] Glucose [Mass/Vol] 125 mg/dL High 74-99 [facility] Comment on above: Order Comment: Helen rg Type: BLOOD SPECIMENOrdering Facility: [facility] Address: [address] [place] [address] Result Comment: The [place] Diabetes [employer] (ADA) provides guidance for cutoff [...] Standards of Medical Care in Diabetes 2016, [employer] [employer]. Diabetes Care. 2016.39(Suppl 1). Performed By: #### 2 777-1, 88343-2, 81620-3 ####[facility]ITAL[facility]IA [id number] [place] [id number] [place] Potassium [Moles/Vol] 2.5 mmol/L Low 3.7-5.1 [facility] Comment on above: Order Comment: Helen rg Type: BLOOD SPECIMENOrdering Facility: [facility] Address: [address] [place] [address] Performed By: #### 2 777-1, 49552-1, ####[facility]ORATORYCLIA [id number] [place] [id number] [place] Sodium [Moles/Vol] 144 mmol/L Normal 136-144 [facility] Comment on above: Order Comment: Speci men Type: BLOOD SPECIMENOrdering Facility: [facility] Address: [address] [place] [address] Performed By: #### 2 777-1, , ####[facility]ATORYCLIA [id number] [place] [address] [place] Urea nitrogen [Mass/Vol] 14 mg/dL Normal 7-21 [facility] Comment on above: Order Comment: Speci men Type: BLOOD SPECIMENOrdering Facility: [facility] Address: [address] [place] [address] Performed By: #### 2 777-1, , ####[facility]ORATORYCLIA [id number] [place] [address] [place] Anion gap [Moles/Vol] 10 mmol/L Normal 8-15 [facility] Comment on above: Order Comment: Speci men Type: BLOOD SPECIMENOrdering Facility: [facility] Address: [address] [place] [address] Performed By: #### 2 777-1, , ####[facility]ORATORYCLIA [id number] [place] [address] [place] Calcium [Mass/Vol] 6.2 mg/dL Low 8.5-10.2 [facility] Comment on above: Order Comment: Speci men Type: BLOOD SPECIMENOrdering Facility: [facility] Address: [address] [place] [address] Performed By: #### 2 777-1, 26610-6, ####[facility]ORATORYCLIA [id number] [place] [address] [place] Chloride [Moles/Vol] 117 mmol/L High 98-107 [facility] Comment on above: Order Comment: Speci men Type: BLOOD SPECIMENOrdering Facility: [facility] Address: [address] [place] [address] Performed By: #### 2 777-1, 06328-2, ####[facility]ORATORYCLIA [id number] [address] OF [facility] CO2 [Moles/Vol] 15 mmol/L Low 22-30 [facility] Comment on above: Order Comment: Speci men Type: BLOOD SPECIMENOrdering Facility: [facility] Address: [address] [place] [address] Performed By: #### 2 777-1, 50448-3, ####[facility]ORATORYCLIA [id number] [address] Creatinine [Mass/Vol] 0.51 mg/dL Low 0.58-0.96 [facility] Comment on above: Order Comment: Speci men Type: BLOOD SPECIMENOrdering Facility: [facility] Address: [address] [place] [address] Performed By: #### 2 777-1, 36240-3, ####[facility]ORATORYCLIA [id number] [address] Creatinine and Glomerular filtration rate.predicted panel (S/P/Bld) 93 mL/min/1.73m??? Normal >=60 [facility] Comment on above: Order Comment: Speci men Type: BLOOD SPECIMENOrdering Facility: [facility] Address: [address] [place] [address] Result Comment: Kaylene mated Glomerular Filtration Rate [...] actual GFR. Performed By: #### 2 777-1, 15785-9, ####[facility]ORATORYCLIA [id number] [place] [address] [place] Glucose [Mass/Vol] 148 mg/dL High 74-99 [facility] Comment on above: Order Comment: Helen rg Type: BLOOD SPECIMENOrdering Facility: [facility] Address: [address] [place] [address] Result Comment: The [place] Diabetes Association (ADA) provides guidance for cutoff [...] Standards of Medical Care in Diabetes 2016, [place] [employer]. Diabetes Care. 2016.39(Suppl 1). Performed By: #### 2 777-1, , ####[facility]ORATORYCLIA [id number] [place] [address] [place] Potassium [Moles/Vol] 3.1 mmol/L Low 3.7-5.1 [facility] Comment on above: Order Comment: Helen rg Type: BLOOD SPECIMENOrdering Facility: [facility] Address: [address] [place] [address] Performed By: #### 2 777-1, 49222-3, ####[facility]ORATORYCLIA [id number] [place] [address] [place] Sodium [Moles/Vol] 142 mmol/L Normal 136-144 [facility] Comment on above: Order Comment: Helen rg Type: BLOOD SPECIMENOrdering Facility: [facility] Address: [address] [place] [address] Performed By: #### 2 777-1, 26017-7, 50176-3 ####[facility]ORATORYCLIA [id number] [address] STATES [facility] Urea nitrogen [Mass/Vol] 17 mg/dL Normal 7-21 [facility] Comment on above: Order Comment: Speci men Type: BLOOD SPECIMENOrdering Facility: [facility] Address: [facility] [place] [address] Performed By: #### 2 777-1, 79258-1, ####[facility]ORATORYCLIA [id number] [address] CBC panel Auto (Bld)on 05-07 Erythrocyte distribution width (RBC) [Ratio] 15.8 % High 11.5-15.0 [facility] Comment on above: Order Comment: Speci men Type: BLOOD SPECIMENOrdering Facility: [facility] Address: [address] [place] [address] Performed By: #### 5 8410-2 ####[facility]ORATORYCLIA [id number] [address] Hematocrit (Bld) [Volume fraction] 27.4 % Low 36.0-46.0 [facility] Comment on above: Order Comment: Speci men Type: BLOOD SPECIMENOrdering Facility: [facility] Address: [address] [place] [address] Performed By: #### 5 8410-2 ####[facility]ORATORYCLIA [id number] [address] STATES OF [facility] Hemoglobin (Bld) [Mass/Vol] 8.8 g/dL Low 11.5-15.5 [facility] Comment on above: Order Comment: Speci men Type: BLOOD SPECIMENOrdering Facility: [facility] Address: [address] [place] [address] Performed By: #### 5 8410-2 ####[facility]ORATORYCLIA [id number] [address] MCH (RBC) [Entitic mass] 29.8 pg Normal 26.0-34.0 [facility] Comment on above: Order Comment: Speci men Type: BLOOD SPECIMENOrdering Facility: [facility] Address: [address] [place] [address] Performed By: #### 5 8410-2 ####[facility]ORATORYCLIA [id number] [address] OF [place] MCHC (RBC) [Mass/Vol] 32.1 g/dL Normal 30.5-36.0 [facility] Comment on above: Order Comment: Speci men Type: BLOOD SPECIMENOrdering Facility: [facility] Address: [address] [place] [address] Performed By: #### 5 8410-2 ####[facility]ORATORYCLIA [id number] [address] MCV (RBC) [Entitic vol] 92.9 fL Normal 80.0-100.0 [facility] Comment on above: Order Comment: Speci men Type: BLOOD SPECIMENOrdering Facility: [facility] Address: [address] [place] [address] Performed By: #### 5 8410-2 ####[facility]ORATORYCLIA [id number] [address] Nucleated RBC (Bld) [#/Vol] 10*3/uL Normal <0.01 [facility] Comment on above: Order Comment: Speci men Type: BLOOD SPECIMENOrdering Facility: [facility] Address: [address] [place] [address] Performed By: #### 5 8410-2 ####[facility]ORATORYCLIA [id number] [address] Platelet mean volume (Bld) [Entitic vol] 10.8 fL Normal 9.0-12.7 [facility] Comment on above: Order Comment: Speci men Type: BLOOD SPECIMENOrdering Facility: [facility] Address: [address] [place] [address] Performed By: #### 5 8410-2 ####[facility]ORATORYCLIA [id number] [address] OF [place] Platelets (Bld) [#/Vol] 250 10*3/uL Normal 150-400 [facility] Comment on above: Order Comment: Speci men Type: BLOOD SPECIMENOrdering Facility: [facility] Address: [address] [place] [address] Performed By: #### 5 8410-2 ####[facility]ORATORYCLIA [id number] [address] OF [facility] RBC (Bld) [#/Vol] 2.95 10*6/uL Low 3.90-5.20 [facility] Comment on above: Order Comment: Speci men Type: BLOOD SPECIMENOrdering Facility: [facility] Address: [address] [place] [address] Performed By: #### 5 8410-2 ####[facility]ORATORYCLIA [id number] [address] WBC (Bld) [#/Vol] 12.58 10*3/uL High 3.70-11.00 [facility] Comment on above: Order Comment: Speci men Type: BLOOD SPECIMENOrdering Facility: [facility] Address: [address] [place] [address] Performed By: #### 5 8410-2 ####[facility]ORATORYCLIA [id number] [address] Erythrocyte distribution width (RBC) [Ratio] 16.0 % High 11.5-15.0 [facility] Comment on above: Order Comment: Speci men Type: BLOOD SPECIMENOrdering Facility: [facility] Address: [address] [place] [address] Performed By: #### 5 8410-2 ####[facility]ORATORYCLIA [id number] [address] OF [facility] Hematocrit (Bld) [Volume fraction] 21.8 % Low 36.0-46.0 [facility] Comment on above: Order Comment: Speci men Type: BLOOD SPECIMENOrdering Facility: [facility] Address: [address] [place] [address] Performed By: #### 5 8410-2 ####[facility]ORATORYCLIA [id number] [address] STATES OF [facility] Hemoglobin (Bld) [Mass/Vol] 7.0 g/dL Low 11.5-15.5 [facility] Comment on above: Order Comment: Speci men Type: BLOOD SPECIMENOrdering Facility: [facility] Address: [address] [place] [address] Performed By: #### 5 8410-2 ####[facility]ORATORYCLIA [id number] [address] [place] MCH (RBC) [Entitic mass] 29.9 pg Normal 26.0-34.0 [facility] Comment on above: Order Comment: Speci men Type: BLOOD SPECIMENOrdering Facility: [facility] Address: [address] [place] [address] Performed By: #### 5 8410-2 ####[facility]ORATORYCLIA [id number] [address] [place] MCHC (RBC) [Mass/Vol] 32.1 g/dL Normal 30.5-36.0 [facility] Comment on above: Order Comment: Speci men Type: BLOOD SPECIMENOrdering Facility: [facility] Address: [address] [place] [address] Performed By: #### 5 8410-2 ####[facility]ORATORYCLIA [id number] [address] [place] MCV (RBC) [Entitic vol] 93.2 fL Normal 80.0-100.0 [facility] Comment on above: Order Comment: Speci men Type: BLOOD SPECIMENOrdering Facility: [facility] Address: [address] [place] [address] Performed By: #### 5 8410-2 ####[facility]ORATORYCLIA [id number] [address] [place] Nucleated RBC (Bld) [#/Vol] 10*3/uL Normal <0.01 [facility] Comment on above: Order Comment: Speci men Type: BLOOD SPECIMENOrdering Facility: [facility] Address: [address] [place] [address] Performed By: #### 5 8410-2 ####[facility]ORATORYCLIA [id number] [place] [address] [place] Platelet mean volume (Bld) [Entitic vol] 10.7 fL Normal 9.0-12.7 [facility] Comment on above: Order Comment: Speci men Type: BLOOD SPECIMENOrdering Facility: [facility] Address: [address] [place] [address] Performed By: #### 5 8410-2 ####[facility]ORATORYCLIA [id number] [address] [place] Platelets (Bld) [#/Vol] 284 10*3/uL Normal 150-400 [facility] Comment on above: Order Comment: Speci men Type: BLOOD SPECIMENOrdering Facility: [facility] Address: [address] [place] [address] Performed By: #### 5 8410-2 ####[facility]ORATORYCLIA [id number] [address] [place] RBC (Bld) [#/Vol] 2.34 10*6/uL Low 3.90-5.20 [facility] Comment on above: Order Comment: Speci men Type: BLOOD SPECIMENOrdering Facility: [facility] Address: [address] [place] [address] Performed By: #### 5 8410-2 ####[facility]ATORYCLIA [id number] [address] [place] WBC (Bld) [#/Vol] 10.97 10*3/uL Normal 3.70-11.00 [facility] Comment on above: Order Comment: Speci men Type: BLOOD SPECIMENOrdering Facility: [facility] Address: [address] [place] [address] Performed By: #### 5 8410-2 ####[facility]ATORYCLIA [id number] [address] STATES [facility] Erythrocyte distribution width (RBC) [Ratio] 16.2 % High 11.5-15.0 [facility] Comment on above: Order Comment: Speci men Type: BLOOD SPECIMENOrdering Facility: [facility] Address: [address] [place] [address] Performed By: #### 5 8410-2 ####[facility]ATORYCLIA [id number] [address] OF [facility] Hematocrit (Bld) [Volume fraction] 15.9 % Low 36.0-46.0 [facility] Comment on above: Order Comment: Speci men Type: BLOOD SPECIMENOrdering Facility: [facility] Address: [address] [place] [address] Performed By: #### 5 8410-2 ####[facility]ATORYCLIA [id number] [address] STATES OF [facility] Hemoglobin (Bld) [Mass/Vol] 5.0 g/dL Critically low 11.5-15.5 [facility] Comment on above: Order Comment: Speci men Type: BLOOD SPECIMENOrdering Facility: [facility] Address: [address] [place] [address] Performed By: #### 5 8410-2 ####[facility]ORYCLIA [id number] [address] MCH (RBC) [Entitic mass] 29.8 pg Normal 26.0-34.0 [facility] Comment on above: Order Comment: Speci men Type: BLOOD SPECIMENOrdering Facility: [facility] Address: [address] [place] [address] Performed By: #### 5 8410-2 ####[facility]ORYCLIA [id number] [address] MCHC (RBC) [Mass/Vol] 31.4 g/dL Normal 30.5-36.0 [facility] Comment on above: Order Comment: Speci men Type: BLOOD SPECIMENOrdering Facility: [facility] Address: [facility] [place] [address] Performed By: #### 5 8410-2 ####[facility]ATORYCLIA [id number] [address] OF [place] MCV (RBC) [Entitic vol] 94.6 fL Normal 80.0-100.0 [facility] Comment on above: Order Comment: Speci men Type: BLOOD SPECIMENOrdering Facility: [facility] Address: [address] [place] [address] Performed By: #### 5 8410-2 ####[facility]ATORYCLIA [id number] [address] STATES OF [facility] Nucleated RBC (Bld) [#/Vol] 10*3/uL Normal <0.01 [facility] Comment on above: Order Comment: Speci men Type: BLOOD SPECIMENOrdering Facility: [facility] Address: [address] [place] [address] Performed By: #### 5 8410-2 ####[facility]ATORYCLIA [id number] [address] OF [facility] Platelet mean volume (Bld) [Entitic vol] 10.6 fL Normal 9.0-12.7 [facility] Comment on above: Order Comment: Speci men Type: BLOOD SPECIMENOrdering Facility: [facility] Address: [address] [place] [address] Performed By: #### 5 8410-2 ####[facility]ATORYCLIA [id number] [address] [place] Platelets (Bld) [#/Vol] 191 10*3/uL Normal 150-400 [facility] Comment on above: Order Comment: Speci men Type: BLOOD SPECIMENOrdering Facility: [facility] Address: [address] [place] [address] Result Comment: No c lot detected. Performed By: #### 5 8410-2 ####[facility]ORATORYCLIA [id number] [address] [place] RBC (Bld) [#/Vol] 1.68 10*6/uL Low 3.90-5.20 [facility] Comment on above: Order Comment: Speci men Type: BLOOD SPECIMENOrdering Facility: [facility] Address: [address] [place] [address] Performed By: #### 5 8410-2 ####[facility]ATORYCLIA [id number] [address] [place] WBC (Bld) [#/Vol] 8.31 10*3/uL Normal 3.70-11.00 [facility] Comment on above: Order Comment: Speci men Type: BLOOD SPECIMENOrdering Facility: [facility] Address: [address] [place] [address] Performed By: #### 5 8410-2 ####[facility]ORATORYCLIA [id number] [address] OF [facility] CONSULT PROGon 05-07-2024 CONSULT PROG Normal [facility] CT BRAIN WO IVCONon 05-07-[address] BRAIN WO IVCON Normal [facility] CT BRAIN WO IVCON Normal [facility] Calcium.ionized [Moles/Vol]o n 05-07-2024 Calcium.ionized (BldV) [Mass/Vol] 1.06 mmol/L Low 1.08-1.30 [facility] Comment on above: Order Comment: Speci men Type: BLOOD SPECIMENOrdering Facility: [facility] Address: [address] [place] [address] Performed By: #### 1 995-0 ####[facility]ORATORYCLIA [id number] [address] Calcium.ionized adjusted to pH 7.4 (Bld) [Moles/Vol] 1.07 mmol/L Low 1.08-1.30 [facility] Comment on above: Order Comment: Speci men Type: BLOOD SPECIMENOrdering Facility: [facility] Address: [address] [place] [address] Performed By: #### 1 995-0 ####[facility]ORATORYCLIA [id number] [address] [place] Calcium.ionized (BldV) [Mass/Vol] 1.07 mmol/L Low 1.08-1.30 [facility] Comment on above: Order Comment: Speci men Type: BLOOD SPECIMENOrdering Facility: [facility] Address: [address] [place] [address] Performed By: #### 1 995-0 ####[facility]ATORYCLIA [id number] [address] STATES OF [facility] Calcium.ionized adjusted to pH 7.4 (Bld) [Moles/Vol] 1.09 mmol/L Normal 1.08-1.30 [facility] Comment on above: Order Comment: Speci men Type: BLOOD SPECIMENOrdering Facility: [facility] Address: [address] [place] [address] Performed By: #### 1 995-0 ####[facility]ORATORYCLIA [id number] [place] [address] [place] Magnesium SerPl-mCncon 05-07 Magnesium [Mass/Vol] 1.1 mg/dL Low 1.7-2.3 [facility] Comment on above: Order Comment: Speci men Type: BLOOD SPECIMENOrdering Facility: [facility] Address: [address] [place], [place] [id number] Performed By: #### 2 777-1, , ####[facility] LABORATORYCLIA [id number] [place] [address] [place] Magnesium [Mass/Vol] 1.5 mg/dL Low 1.7-2.3 [facility] Comment on above: Order Comment: Speci men Type: BLOOD SPECIMENOrdering Facility: [facility] Address: [address] [place] [address] Performed By: #### 2 777-1, 50482-6, ####[facility] LABORATORYCLIA [id number] [place] [address] [place] NURSING PROGon 05-07-2024 NURSING PROG Normal [facility] NURSING PROG Normal [facility] OPERATIVE NOon 05-07-2024 OPERATIVE NO Normal [facility] Phosphate SerPl-mCncon 05-07 Phosphate [Mass/Vol] 2.1 mg/dL Low 2.7-4.8 [facility] Comment on above: Order Comment: Speci men Type: BLOOD SPECIMENOrdering Facility: [facility] Address: [address] [place] [address] Performed By: #### 2 777-1, 65316-8, 30978-4 ####[facility] LABORATORYCLIA [id number] [address] Phosphate [Mass/Vol] 2.6 mg/dL Low 2.7-4.8 [facility] Comment on above: Order Comment: Speci men Type: BLOOD SPECIMENOrdering Facility: [facility] Address: [address] [place] [address] Performed By: #### 2 777-1, 21896-5, ####[facility] LABORATORYCLIA [id number] [address] OF [facility] THERAPY NTon 05-07-2024 THERAPY NT Normal [facility] XR ABDOMEN 1V SUPINEon 05-07 XR ABDOMEN 1V SUPINE Normal [facility] XR CHEST 1V FRONTALon 2023 XR CHEST 1V FRONTAL Normal [facility] XR FEMUR 2V AP/LAT LTon -0 XR FEMUR 2V AP/LAT LT Normal [facility] ALLIED HEALTHon 05-06-2024 ALLIED HEALTH Normal [facility] ANES POSTPROC EVALon 024 ANES POSTPROC EVAL Normal [facility] ANES PRE-OPon 05-06-2024 ANES PRE-OP Normal [facility] Basic Metabolic Profile (BMP )on 05-06-2024 BUN/CRE 29.7 RATIO High 10-20 [facility] Comment on above: Performed By: #### L 500.2500, L100.0100 ####[facility] [address] [place], [address] CA,Total 8.6 mg/dL Normal 8.5-10.1 [facility] Comment on above: Performed By: #### L 500.2500, L100.0100 ####[facility] [address] [place], [address] Chloride [Moles/Vol] 109 mmol/L High 98-107 [facility] Comment on above: Performed By: #### L 500.2500, L100.0100 ####[facility] [address] [place], [address] CO2 [Moles/Vol] 24.0 mmol/L Normal 21.0-32.0 [facility] Comment on above: Performed By: #### L 500.2500, L100.0100 ####[facility] [address] [place], [address] Creatinine [Mass/Vol] 0.57 mg/dL Normal 0.55-1.02 [facility] Comment on above: Result Comment: The validity of the calculated GFR GFRAA in patients over70 years has not been determined. Clinical correlation isessential. Performed By: #### L 500.2500, L100.0100 ####[facility] [address] [place], [address] ECRCL 60.00 ml/min Normal [facility] Comment on above: Performed By: #### L 500.2500, L100.0100 ####[facility] [address] [place], [address] EST GFR - AA 130 mL/min Normal >60 [facility] Comment on above: Result Comment: Afri can Tristanian GFR Calc Performed By: #### L 500.2500, L100.0100 ####[facility] [address] [place], [address] GAP 7 Normal 5-15 [facility] Comment on above: Performed By: #### L 500.2500, L100.0100 ####[facility] [address] [place], [address] GFR/1.73 sq M.predicted among non-blacks MDRD (S/P/Bld) [Vol rate/Area] 107 mL/min/{1.73_m2} Normal >60 [facility] Comment on above: Result Comment: Non- GFR Calc Performed By: #### L 500.2500, L100.0100 ####[facility] [address] [place], [address] Glucose [Mass/Vol] 134 mg/dL High 74-106 [facility] Comment on above: Result Comment: Fast ing Glucose result greater than or equal to 126 mg/dLsuggests DIABETES MELLITUS per A.D.A. criteria. Performed By: #### L 500.2500, L100.0100 ####[facility] [address] [place], [address] Potassium [Moles/Vol] 3.6 mmol/L Normal 3.5-5.1 [facility] Comment on above: Result Comment: Slig ht Hemolysis, Result may be falsely increased. Performed By: #### L 500.2500, L100.0100 ####[facility] [address] [place], [address] Sodium [Moles/Vol] 140 mmol/L Normal 136-145 [facility] Comment on above: Performed By: #### L 500.2500, L100.0100 ####[facility] [address] [place], [address] Urea nitrogen [Mass/Vol] 17 mg/dL Normal 7-18 [facility] Comment on above: Performed By: #### L 500.2500, L100.0100 ####[facility] [address] [place] [place], [address] Basic metabolic 2000 panelon 05-06-2024 Anion gap [Moles/Vol] 11 mmol/L Normal 8-15 [facility] Comment on above: Order Comment: Speci men Type: BLOOD SPECIMENOrdering Facility: [facility] Address: [address] [place] [address] Performed By: #### 2 4321-2, ####[facility]ORATORYCLIA [id number] [place] [address] [place] Calcium [Mass/Vol] 8.5 mg/dL Normal 8.5-10.2 [facility] Comment on above: Order Comment: Speci men Type: BLOOD SPECIMENOrdering Facility: [facility] Address: [address] [place] [address] Performed By: #### 2 2, ####[facility] LABORATORYCLIA [id number] [place] [address] [place] Chloride [Moles/Vol] 103 mmol/L Normal 98-107 [facility] Comment on above: Order Comment: Speci men Type: BLOOD SPECIMENOrdering Facility: [facility] Address: [address] [place] [address] Performed By: #### 2 432-2, ####[facility] LABORATORYCLIA [id number] [place] [address] [place] CO2 [Moles/Vol] 24 mmol/L Normal 22-30 [facility] Comment on above: Order Comment: Speci men Type: BLOOD SPECIMENOrdering Facility: [facility] Address: [address] [place] [address] Performed By: #### 2 4321-2, ####[facility]ORATORYCLIA [id number] [place] [address] [place] Creatinine [Mass/Vol] 0.56 mg/dL Low 0.58-0.96 [facility] Comment on above: Order Comment: Speci men Type: BLOOD SPECIMENOrdering Facility: [facility] Address: [address] [place] [address] Performed By: #### 2 4321-2, 38005-0 ####[facility] [id number] [place] [id number] [facility] [place] Creatinine and Glomerular filtration rate.predicted panel (S/P/Bld) 91 mL/min/1.73m??? Normal >=60 [facility] Comment on above: Order Comment: Helen ifrah Type: BLOOD SPECIMENOrdering Facility: [facility] Address: [address] [place] [address] Result Comment: Kaylene mated Glomerular Filtration Rate [...] actual GFR. Performed By: #### 2 4321-2, 12947-5 ####[facility]ITAL[facility] [id number] [place] [id number] [place] Glucose [Mass/Vol] 161 mg/dL High 74-99 [facility] Comment on above: Order Comment: Helen ifrah Type: BLOOD SPECIMENOrdering Facility: [facility] Address: [address] [place] [address] Result Comment: The [place] Diabetes Association (ADA) provides guidance for cutoff [...] Standards of Medical Care in Diabetes 2016, [place] Diabetes Association. Diabetes Care. 2016.39(Suppl 1). Performed By: #### 2 4321-2, ####[facility]ORATORYCLIA [id number] [place] [address] [place] Potassium [Moles/Vol] 3.8 mmol/L Normal 3.7-5.1 [facility] Comment on above: Order Comment: Speci men Type: BLOOD SPECIMENOrdering Facility: [facility] Address: [address] [place] [address] Performed By: #### 2 432-2, ####[facility]ORATORYCLIA [id number] [place] [address] [place] Sodium [Moles/Vol] 138 mmol/L Normal 136-144 [facility] Comment on above: Order Comment: Speci men Type: BLOOD SPECIMENOrdering Facility: [facility] Address: [address] [place] [address] Performed By: #### 2 4322, ####[facility]ORATORYCLIA [id number] [place] [address] [place] Urea nitrogen [Mass/Vol] 15 mg/dL Normal 7-21 [facility] Comment on above: Order Comment: Speci men Type: BLOOD SPECIMENOrdering Facility: [facility] Address: [address] [place] [address] Performed By: #### 2 4322, ####[facility]ORATORYCLIA [id number] [place] [address] [place] Anion gap [Moles/Vol] 7 mmol/L Low 8-15 [facility] Comment on above: Order Comment: Speci men Type: BLOOD SPECIMENOrdering Facility: [facility] Address: [address] [place] [address] Performed By: #### 1 9123-9, 2777-1, 39961-0 ####[facility]ORATORYCLIA [id number] [place] [address] [place] Calcium [Mass/Vol] 3.9 mg/dL Low 8.5-10.2 [facility] Comment on above: Order Comment: Speci men Type: BLOOD SPECIMENOrdering Facility: [facility] Address: [address] [place] [address] Performed By: #### 1 9123-9, 2771, 86431-9 ####[facility] LABORATORYCLIA [id number] [place] [address] [place] Chloride [Moles/Vol] 124 mmol/L High 98-107 [facility] Comment on above: Order Comment: Speci men Type: BLOOD SPECIMENOrdering Facility: [facility] Address: [address] [place] [address] Performed By: #### 1 9123-9, 2776-05, 57315-4 ####[facility] LABORATORYCLIA [id number] [place] [address] [place] CO2 [Moles/Vol] 12 mmol/L Low 22-30 [facility] Comment on above: Order Comment: Speci men Type: BLOOD SPECIMENOrdering Facility: [facility] Address: [address] [place] [address] Performed By: #### 1 9123-9, 2776-05, 04672-9 ####[facility] LABORATORYCLIA [id number] [address] [place] Creatinine [Mass/Vol] 0.25 mg/dL Low 0.58-0.96 [facility] Comment on above: Order Comment: Speci men Type: BLOOD SPECIMENOrdering Facility: [facility] Address: [address] [place] [address] Performed By: #### 1 9123-9, 27711-28, 64702-2 ####[facility] LABORATORYCLIA [id number] [address] [place] Creatinine and Glomerular filtration rate.predicted panel (S/P/Bld) 111 mL/min/1.73m??? Normal >=60 [facility] Comment on above: Order Comment: Speci men Type: BLOOD SPECIMENOrdering Facility: [facility] Address: [address] [place], [place] [address] Result Comment: Kaylene mated Glomerular Filtration Rate [...] actual GFR. Performed By: #### 1 9123-9, 2777-, 64010-3 ####[facility]ORATORYCLIA [id number] [place] [address] [place] Glucose [Mass/Vol] 94 mg/dL Normal 74-99 [facility] Comment on above: Order Comment: Helen rg Type: BLOOD SPECIMENOrdering Facility: [facility] Address: [address] [place] [address] Result Comment: The [place]istan[place] Diabetes Association (ADA) provides guidance for cutoff [...] Standards of Medical Care in Diabetes 2016, [place] Diabetes Association. Diabetes Care. 2016.39(Suppl 1). Performed By: #### 1 9123-9, 2777-, 57482-4 ####[facility] LABORATORYCLIA [id number] [place] [id number] [place] Potassium [Moles/Vol] 1.8 mmol/L Critically low 3.7-5.1 [facility] Comment on above: Order Comment: Helen rg Type: BLOOD SPECIMENOrdering Facility: [facility] Address: [address] [place] [address] Performed By: #### 1 9123-9, 2777-, 91628-4 ####[facility]ORATORYCLIA [id number] [place] [address] [place] Sodium [Moles/Vol] 143 mmol/L Normal 136-144 [facility] Comment on above: Order Comment: Speci men Type: BLOOD SPECIMENOrdering Facility: [facility] Address: [address] [place] [address] Performed By: #### 1 9123-9, 2777-1, 13007-0 ####[facility]ORATORYCLIA [id number] [place] [id number] [place] Urea nitrogen [Mass/Vol] 8 mg/dL Normal 7-21 [facility] Comment on above: Order Comment: Speci men Type: BLOOD SPECIMENOrdering Facility: [facility] Address: [address] [place] [address] Performed By: #### 1 9123-9, 2777-1, 18197-2 ####[facility] LABORATORYCLIA [id number] [address] STATES OF [facility] Anion gap [Moles/Vol] 8 mmol/L Normal 8-15 [facility] Comment on above: Order Comment: Speci men Type: BLOOD SPECIMENOrdering Facility: [facility] Address: [address] [place] [address] Performed By: #### 2 4321-2 ####[facility]ORATORYCLIA [id number] [place] [address] [place] Calcium [Mass/Vol] 3.4 mg/dL Low 8.5-10.2 [facility] Comment on above: Order Comment: Speci men Type: BLOOD SPECIMENOrdering Facility: [facility] Address: [address] [place] [address] Performed By: #### 2 4321-2 ####[facility] LABORATORYCLIA [id number] [place] [address] [place] Chloride [Moles/Vol] 102 mmol/L Normal 98-107 [facility] Comment on above: Order Comment: Speci men Type: BLOOD SPECIMENOrdering Facility: [facility] Address: [address] [place] [address] Performed By: #### 2 4321-2 ####[facility] LABORATORYCLIA [id number] [place] [id number] [facility] [place] CO2 [Moles/Vol] 10 mmol/L Low 22-30 [facility] Comment on above: Order Comment: Speci men Type: BLOOD SPECIMENOrdering Facility: [facility] Address: [address] [place] [address] Performed By: #### 2 4321-2 ####[facility] LABORATORYCLIA [id number] [address] OF [facility] Creatinine [Mass/Vol] 0.25 mg/dL Low 0.58-0.96 [facility] Comment on above: Order Comment: Speci men Type: BLOOD SPECIMENOrdering Facility: [facility] Address: [address] [place] [address] Performed By: #### 2 4321-2 ####[facility] LABORATORYCLIA [id number] [address] Creatinine and Glomerular filtration rate.predicted panel (S/P/Bld) 111 mL/min/1.73m??? Normal >=60 [facility] Comment on above: Order Comment: Speci men Type: BLOOD SPECIMENOrdering Facility: [facility] Address: [address] [place] [address] Result Comment: Kaylene mated Glomerular Filtration Rate [...] actual GFR. Performed By: #### 2 4321-2 ####[facility]ORATORYCLIA [id number] [address] Glucose [Mass/Vol] 85 mg/dL Normal 74-99 [facility] Comment on above: Order Comment: Speci men Type: BLOOD SPECIMENOrdering Facility: [facility] Address: [address] [place] [address] Result Comment: The [place] Diabetes Association (ADA) provides guidance for cutoff [...] Standards of Medical Care in Diabetes 2016, [place] Diabetes Association. Diabetes Care. 2016.39(Suppl 1). Performed By: #### 2 4321-2 ####[facility]ORATORYCLIA [id number] [place] [address] [place] Potassium [Moles/Vol] 1.7 mmol/L Critically low 3.7-5.1 [facility] Comment on above: Order Comment: Speci men Type: BLOOD SPECIMENOrdering Facility: [facility] Address: [address] [place] [address] Performed By: #### 2 4321-2 ####[facility]ORATORYCLIA [id number] [place] [address] [place] Sodium [Moles/Vol] 120 mmol/L Low 136-144 [facility] Comment on above: Order Comment: Speci men Type: BLOOD SPECIMENOrdering Facility: [facility] Address: [address] [place] [address] Performed By: #### 2 4321-2 ####[facility] LABORATORYCLIA [id number] [place] [address] [place] Urea nitrogen [Mass/Vol] 8 mg/dL Normal 7-21 [facility] Comment on above: Order Comment: Speci men Type: BLOOD SPECIMENOrdering Facility: [facility] Address: [address] [place] [address] Performed By: #### 2 4321-2 ####[facility]ORATORYCLIA [id number] [place] [address] [place] CBC W/Diff, Automatedon 12-0 -2023 Absolute Lymph 1.89 X10 3/uL Normal 0.83-4.51 [facility] Comment on above: Performed By: #### L 500.2500, L100.0100 ####[facility] [address] [place], [address] Absolute Neut 4.9 X10 3/uL Normal 2.0-7.7 [facility] Comment on above: Performed By: #### L 500.2500, L100.0100 ####[facility] [address] [place], [address] Basophils/100 WBC (Bld) 0.6 % Normal 0-1 [facility] Comment on above: Performed By: #### L 500.2500, L100.0100 ####[facility] [address] [place], [address] Eosinophils/100 WBC (Bld) 2.6 % Normal 0-5 [facility] Comment on above: Performed By: #### L 500.2500, L100.0100 ####[facility] [address] [place], [address] Erythrocyte distribution width (RBC) [Ratio] 15.9 % High 11.6-14.6 [facility] Comment on above: Performed By: #### L 500.2500, L100.0100 ####[facility] [address] [place], [address] Hematocrit (Bld) [Volume fraction] 36.9 % Low 37-47 [facility] Comment on above: Performed By: #### L 500.2500, L100.0100 ####[facility] [address] [place], [address] Hemoglobin (Bld) [Mass/Vol] 11.4 g/dL Low 12.0-15.0 [facility] Comment on above: Performed By: #### L 500.2500, L100.0100 ####[facility] [address] [place], [address] IG% 1.500 High 0.0-0.9 [facility] Comment on above: Result Comment: IG% - Immature Granulocytes (promyelocytes, myelocytes andmetamyelocytes) > 1% indicates that a LEFT SHIFT is Present. Performed By: #### L 500.2500, L100.0100 ####[facility] [address] [place], [address] Lymphocytes/100 WBC (Bld) 23.6 % Normal 19-41 [facility] Comment on above: Performed By: #### L 500.2500, L100.0100 ####[facility] [address] [place], [address] MCH (RBC) [Entitic mass] 28.6 pg Normal 27.0-32.0 [facility] Comment on above: Performed By: #### L 500.2500, L100.0100 ####[facility] [address] [place], [address] MCHC (RBC) [Mass/Vol] 30.9 g/dL Low 32-36 [facility] Comment on above: Performed By: #### L 500.2500, L100.0100 ####[facility] [address] [place], [address] MCV (RBC) [Entitic vol] 92.5 fL Normal 81-99 [facility] Comment on above: Performed By: #### L 500.2500, L100.0100 ####[facility] [address] [place], [address] Monocytes/100 WBC (Bld) 10.4 % High 0-10 [facility] Comment on above: Performed By: #### L 500.2500, L100.0100 ####[facility] [address] [place], [address] Neutrophils/100 WBC (Bld) 61.3 % Normal 47-70 [facility] Comment on above: Performed By: #### L 500.2500, L100.0100 ####[facility] [address] [place], [address] Nucleated RBC (Bld) [#/Vol] 0 10*3/uL Normal 0-5 [facility] Comment on above: Performed By: #### L 500.2500, L100.0100 ####[facility] [address] [place], [address] Platelet mean volume (Bld) [Entitic vol] 10.7 fL Normal 6.2-12.0 [facility] Comment on above: Performed By: #### L 500.2500, L100.0100 ####[facility] [address] [place], [address] Platelets (Bld) [#/Vol] 373 10*3/uL Normal 150-450 [facility] Comment on above: Performed By: #### L 500.2500, L100.0100 ####[facility] [address] [place], [address] RBC (Bld) [#/Vol] 3.99 10*6/uL Low 4.2-5.4 [facility] Comment on above: Performed By: #### L 500.2500, L100.0100 ####[facility] [address] [place], [address] RDW SD 54.1 fl High 35.1-43.9 [facility] Comment on above: Performed By: #### L 500.2500, L100.0100 ####[facility] [address] [place], [address] WBC (Bld) [#/Vol] 8.0 10*3/uL Normal 4.4-11.0 [facility] Comment on above: Performed By: #### L 500.2500, L100.0100 ####[facility] [address] [place], [address] CBC panel Auto (Bld)on 05-06 Erythrocyte distribution width (RBC) [Ratio] 15.7 % High 11.5-15.0 [facility] Comment on above: Order Comment: Speci men Type: BLOOD SPECIMENOrdering Facility: [facility] Address: [address] [place] [address] Performed By: #### 5 8410-2 ####[facility]ORATORYCLIA [id number] [address] [place] Hematocrit (Bld) [Volume fraction] 29.8 % Low 36.0-46.0 [facility] Comment on above: Order Comment: Speci men Type: BLOOD SPECIMENOrdering Facility: [facility] Address: [address] [place] [address] Performed By: #### 5 8410-2 ####[facility]ORATORYCLIA [id number] [address] [place] Hemoglobin (Bld) [Mass/Vol] 9.4 g/dL Low 11.5-15.5 [facility] Comment on above: Order Comment: Speci men Type: BLOOD SPECIMENOrdering Facility: [facility] Address: [address] [place] [address] Performed By: #### 5 8410-2 ####[facility]ORATORYCLIA [id number] [address] [place] MCH (RBC) [Entitic mass] 29.7 pg Normal 26.0-34.0 [facility] Comment on above: Order Comment: Speci men Type: BLOOD SPECIMENOrdering Facility: [facility] Address: [address] [place] [address] Performed By: #### 5 8410-2 ####[facility]ORATORYCLIA [id number] [address] STATES OF [facility] MCHC (RBC) [Mass/Vol] 31.5 g/dL Normal 30.5-36.0 [facility] Comment on above: Order Comment: Speci men Type: BLOOD SPECIMENOrdering Facility: [facility] Address: [address] [place] [address] Performed By: #### 5 8410-2 ####[facility]ORATORYCLIA [id number] [address] [place] MCV (RBC) [Entitic vol] 94.0 fL Normal 80.0-100.0 [facility] Comment on above: Order Comment: Speci men Type: BLOOD SPECIMENOrdering Facility: [facility] Address: [address] [place] [address] Performed By: #### 5 8410-2 ####[facility]ORATORYCLIA [id number] [address] Nucleated RBC (Bld) [#/Vol] 10*3/uL Normal <0.01 [facility] Comment on above: Order Comment: Speci men Type: BLOOD SPECIMENOrdering Facility: [facility] Address: [address] [place] [address] Performed By: #### 5 8410-2 ####[facility]ORATORYCLIA [id number] [address] [place] Platelet mean volume (Bld) [Entitic vol] 10.6 fL Normal 9.0-12.7 [facility] Comment on above: Order Comment: Speci men Type: BLOOD SPECIMENOrdering Facility: [facility] Address: [address] [place] [address] Performed By: #### 5 8410-2 ####[facility]ORATORYCLIA [id number] [address] [place] Platelets (Bld) [#/Vol] 283 10*3/uL Normal 150-400 [facility] Comment on above: Order Comment: Speci men Type: BLOOD SPECIMENOrdering Facility: [facility] Address: [address] [place] [address] Performed By: #### 5 8410-2 ####[facility] LABORATORYCLIA [id number] [address] OF [facility] RBC (Bld) [#/Vol] 3.17 10*6/uL Low 3.90-5.20 [facility] Comment on above: Order Comment: Speci men Type: BLOOD SPECIMENOrdering Facility: [facility] Address: [address] [place] [address] Performed By: #### 5 8410-2 ####[facility] LABORATORYCLIA [id number] [address] OF [facility] WBC (Bld) [#/Vol] 10.85 10*3/uL Normal 3.70-11.00 [facility] Comment on above: Order Comment: Speci men Type: BLOOD SPECIMENOrdering Facility: [facility] Address: [address] [place] [address] Performed By: #### 5 8410-2 ####[facility] LABORATORYCLIA [id number] [address] Erythrocyte distribution width (RBC) [Ratio] 15.9 % High 11.5-15.0 [facility] Comment on above: Order Comment: Speci men Type: BLOOD SPECIMENOrdering Facility: [facility] Address: [address] [place] [address] Performed By: #### 5 8410-2 ####[facility] LABORATORYCLIA [id number] [address] Hematocrit (Bld) [Volume fraction] 34.0 % Low 36.0-46.0 [facility] Comment on above: Order Comment: Speci men Type: BLOOD SPECIMENOrdering Facility: [facility] Address: [address] [place] [address] Performed By: #### 5 8410-2 ####[facility] LABORATORYCLIA [id number] [address] Hemoglobin (Bld) [Mass/Vol] 10.7 g/dL Low 11.5-15.5 [facility] Comment on above: Order Comment: Speci men Type: BLOOD SPECIMENOrdering Facility: [facility] Address: [address] [place] [address] Performed By: #### 5 8410-2 ####[facility] LABORATORYCLIA [id number] [address] MCH (RBC) [Entitic mass] 29.5 pg Normal 26.0-34.0 [facility] Comment on above: Order Comment: Speci men Type: BLOOD SPECIMENOrdering Facility: [facility] Address: [address] [place] [address] Performed By: #### 5 8410-2 ####[facility] LABORATORYCLIA [id number] [address] MCHC (RBC) [Mass/Vol] 31.5 g/dL Normal 30.5-36.0 [facility] Comment on above: Order Comment: Speci men Type: BLOOD SPECIMENOrdering Facility: [facility] Address: [address] [place] [address] Performed By: #### 5 8410-2 ####[facility] LABORATORYCLIA [id number] [address] MCV (RBC) [Entitic vol] 93.7 fL Normal 80.0-100.0 [facility] Comment on above: Order Comment: Speci men Type: BLOOD SPECIMENOrdering Facility: [facility] Address: [address] [place] [address] Performed By: #### 5 8410-2 ####[facility] LABORATORYCLIA [id number] [address] Nucleated RBC (Bld) [#/Vol] 10*3/uL Normal <0.01 [facility] Comment on above: Order Comment: Speci men Type: BLOOD SPECIMENOrdering Facility: [facility] Address: [address] [place] [address] Performed By: #### 5 8410-2 ####[facility] LABORATORYCLIA [id number] [place] [address] [place] Platelet mean volume (Bld) [Entitic vol] 11.2 fL Normal 9.0-12.7 [facility] Comment on above: Order Comment: Speci men Type: BLOOD SPECIMENOrdering Facility: [facility] Address: [address] [place] [address] Performed By: #### 5 8410-2 ####[facility] LABORATORYCLIA [id number] [place] [address] [place] Platelets (Bld) [#/Vol] 355 10*3/uL Normal 150-400 [facility] Comment on above: Order Comment: Speci men Type: BLOOD SPECIMENOrdering Facility: [facility] Address: [address] [place] [address] Performed By: #### 5 8410-2 ####[facility] LABORATORYCLIA [id number] [place] [address] [place] RBC (Bld) [#/Vol] 3.63 10*6/uL Low 3.90-5.20 [facility] Comment on above: Order Comment: Speci men Type: BLOOD SPECIMENOrdering Facility: [facility] Address: [address] [place] [address] Performed By: #### 5 8410-2 ####[facility] LABORATORYCLIA [id number] [place] [address] [place] WBC (Bld) [#/Vol] 12.97 10*3/uL High 3.70-11.00 [facility] Comment on above: Order Comment: Speci men Type: BLOOD SPECIMENOrdering Facility: [facility] Address: [address] [place] [address] Performed By: #### 5 8410-2 ####[facility] LABORATORYCLIA [id number] [address] OF [place] CONSULTon 05-06-2024 CONSULT Normal [facility] CONSULT Normal [facility] CONSULT Normal [facility] CT ABD/PEL W IVCONon 024 CT ABD/PEL W IVCON Normal [facility] CT BRAIN WO IVCONon 05-06-[address] BRAIN WO IVCON Normal [facility] CT BRAIN WO IVCON Invalid Interpretation Code [facility] Calcium.ionized [Moles/Vol]o n 05-06-2024 Calcium.ionized (BldV) [Mass/Vol] 0.96 mmol/L Low 1.08-1.30 [facility] Comment on above: Order Comment: Speci men Type: BLOOD SPECIMENOrdering Facility: [facility] Address: [address] [place] [address] Performed By: #### 1 995-0 ####[facility] LABORATORYCLIA [id number] [address] Calcium.ionized adjusted to pH 7.4 (Bld) [Moles/Vol] 0.91 mmol/L Low 1.08-1.30 [facility] Comment on above: Order Comment: Speci men Type: BLOOD SPECIMENOrdering Facility: [facility] Address: [address] [place] [address] Performed By: #### 1 995-0 ####[facility] LABORATORYCLIA [id number] [address] ED NOTEon 05-06-2024 ED NOTE HNO ID: [id number] Author: RADHAMES YU RN Service: ? Author Type: Registered Nurse Type: ED Notes Filed: 05/06/2024 07:05 Note Text: Report given to Earline GUEVARA [facility] ED NOTE HNO ID: [id number] Author: WILBERT YOUNG RN Service: ? Author Type: Registered Nurse Type: ED Notes Filed: 05/06/2024 06:52 Note Text: Lab called this RN and needed a redraw for global hemostasis with lysis r/t time it took to arrive in lab. [facility] ED NOTE HNO ID: [id number] Author: RADHAMES YU RN Service: ? Author Type: Registered Nurse Type: ED Notes Filed: 05/06/2024 04:47 Note Text: Surgery resident and ortho resident at bedside. Knee immobilizer placed on pt by ortho resident [facility] ED NOTE HNO ID: [id number] Author: RADHAMES YU RN Service: ? Author Type: Registered Nurse Type: ED Notes Filed: 05/06/2024 04:17 Note Text: CT after Feiba Normal [facility] ED NOTE HNO ID: [id number] Author: RADHAMES YU RN Service: ? Author Type: Registered Nurse Type: ED Notes Filed: 05/06/2024 03:49 Note Text: Pt returned from CT. 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 Author Type: Registered Nurse Type: ED Notes Filed: 05/06/2024 03:38 Note Text: Pharmacy notified, preparing FEIBA at this time. [facility] ED NOTE HNO ID: [id number] Author: RADHAMES YU RN Service: ? Author Type: Registered Nurse Type: ED Notes Filed: 05/06/2024 03:31 Note Text: CT notified [facility] ED NOTE HNO ID: [id number] Author: HEIDY TAVERAS RN Service: ? Author Type: Registered Nurse Type: ED Notes Filed: 05/06/2024 03:20 Note Text: Neurosurgery provider at bedside speaking w daughter / POA. Pt in XR at this time. [facility] ED NOTE HNO ID: [id number] Author: CAROL MOTA RN Service: Nursing Author Type: Registered Nurse Type: ED Notes Filed: 05/06/2024 03:15 Note Text: Report given to ISMAEL Jacobo. [facility] ED NOTE HNO ID: [id number] Author: CAROL MOTA RN Service: Nursing Author Type: Registered Nurse Type: ED Notes Filed: 05/06/2024 02:44 Note Text: XR notified pt is ready for scan. [facility] ED PROV NOTEon 05-06-2024 ED PROV NOTE Normal [facility] ED PROV NOTE Normal [facility] GLOBAL HEMOSTASIS WITH LYSIS on 05-06-2024 Clot Lysis 30 Min post maximum clot amplitude TEG (Bld) [Length fraction] 0.0 % Normal 0.0-2.6 [facility] Comment on above: Order Comment: Helen rg Type: BLOOD SPECIMENOrdering Facility: [facility] Address: [address] [place] [address] Performed By: #### T EGLYS ####[facility] LABORATORYCLIA [id number] [address] Clotting time.extrinsic coagulation system activated Rotational TEG (Bld) 4.5 minutes Low 4.6-9.1 [facility] Comment on above: Order Comment: Bernardomigel rg Type: BLOOD SPECIMENOrdering Facility: [facility] Address: [address] [place] [address] Performed By: #### T EGLYS ####[facility] LABORATORYCLIA [id number] [address] OF [facility] Maximum clot firmness.extrinsic coagulation system activated.platelets inhibited Rotational TEG (Bld) [Length] 67.3 mm Normal 52.0-70.0 [facility] Comment on above: Order Comment: Bernardomigel rg Type: BLOOD SPECIMENOrdering Facility: [facility] Address: [address] [place] [address] Result Comment: 29.3 Performed By: #### T EGLYS ####[facility] LABORATORYCLIA [id number] [address] [place] THROMBOGRAPH INTERP Normal [facility] Comment on above: Order Comment: Helen rg Type: BLOOD SPECIMENOrdering Facility: [facility] Address: [address] [place] [address] Result Comment: A th romboelastograph (TEG) study [...] timely manner. Performed By: #### T EGLYS ####[facility] LABORATORYCLIA [id number] [address] HISTORY PHYSICALon HISTORY PHYSICAL Normal [facility] HISTORY PHYSICAL Normal [facility] Magnesium SerPl-mCncon 05-06 Magnesium [Mass/Vol] 1.8 mg/dL Normal 1.7-2.3 [facility] Comment on above: Order Comment: Helen rg Type: BLOOD SPECIMENOrdering Facility: [facility] Address: [address] [place] [address] Performed By: #### 2 4321-2, 56607-6 ####[facility] LABORATORYCLIA [id number] [address] Magnesium [Mass/Vol] 0.8 mg/dL Low 1.7-2.3 [facility] Comment on above: Order Comment: Helen rg Type: BLOOD SPECIMENOrdering Facility: [facility] Address: [address] [place] [address] Performed By: #### 1 9123-9, 2777-1, 77698-8 ####[facility] LABORATORYCLIA [id number] [address] OPERATIVE NOon 05-06-2024 OPERATIVE NO Normal [facility] PT panel Coag (PPP)on 2023 INR Coag (PPP) [Relative time] {INR} Low 0.9-1.3 [facility] Comment on above: Order Comment: Helen rg Type: BLOOD SPECIMENOrdering Facility: [facility] Address: [address] [place] [address] Result Comment: Ofelia min K Antagonist (VKA) Therapeutic Range: INR 2 to 3 (Target INR of 2.5)Note: For patients treated with VKA drugs, such as warfarin, the [employer] [employer] 2012 Guideline recommends [...] 2.5 to 3.5 (target INR of 3).Terry GH, et al. Chest 2012, 141:7S-47SNishmadhav RA, et al. [facility] 2017, 70: 252-289 Performed By: #### 3 4528-0 ####[facility] LABORATORYCLIA [id number] [place] [address] [place] PT Coag (PPP) [Time] 9.5 s Low 9.7-13.0 [facility] Comment on above: Order Comment: Specmigel rg Type: BLOOD SPECIMENOrdering Facility: [facility] Address: [address] [place] [address] Performed By: #### 3 4528-0 ####[facility] LABORATORYCLIA [id number] [address] [place] Partial Thromboplast Timeon 05-06-2024 aPTT Coag (Bld) [Time] 26.8 s Normal 24.1-36.2 [facility] Comment on above: Performed By: #### L 300.4310, L300.3900 ####[facility] [address] [place], [address] Phosphate SerPl-mCncon 05-06 Phosphate [Mass/Vol] 1.7 mg/dL Low 2.7-4.8 [facility] Comment on above: Order Comment: Helen rg Type: BLOOD SPECIMENOrdering Facility: [facility] Address: [address] [place] [address] Performed By: #### 1 9123-9, 2777-1, 89136-8 ####[facility] LABORATORYCLIA [id number] [place] [address] [place] Prothrombin Time w/INRon INR Coag (PPP) [Relative time] 1.1 {INR} Normal [facility] Comment on above: Performed By: #### L 300.4310, L300.3900 ####[facility] [address] [place], [address] PT Coag (PPP) [Time] 14.1 s Normal 11.7-14.9 [facility] Comment on above: Performed By: #### L 300.4310, L300.3900 ####[facility] [address] [place], [address] STAPHYLOCOCCUS AUREUS AND MR SA SCREEN, PCR, NASALon 05-06-2024 S. aureus and MRSA panel ANKIT+probe (Nose) Not detected Normal Not Detected [facility] Comment on above: Order Comment: Speci men Type: SWABOrdering Facility: [facility] Address: [address] [place] [address] Performed By: #### S APCR ####[facility] LABORATORYCLIA [id number] [address] [place] TYPE + SCREENon 05-06-2024 ABO O Normal [facility] Comment on above: Order Comment: Speci men Type: BLOOD SPECIMENOrdering Facility: [facility] Address: [facility] [place] [address] Performed By: #### T SCR ####[facility] BLOOD BANKCLIA [id number] [place] [address] [place] Rh Nom (Bld) Positive Normal [facility] Comment on above: Order Comment: Speci men Type: BLOOD SPECIMENOrdering Facility: [facility] Address: [address] [place] [address] Performed By: #### T SCR ####[facility] BLOOD BANKCLIA [id number] [address] [place] TYPE AND SCREEN EXPIRATION 05/09/2024 23:59 Normal [facility] Comment on above: Order Comment: Speci men Type: BLOOD SPECIMENOrdering Facility: [facility] Address: [address] [place] [address] Performed By: #### T SCR ####[facility] BLOOD BANKCLIA [id number] [address] OF [facility] XR ANKLE 3V AP/LAT/OBL LTon 05-06-2024 XR ANKLE 3V AP/LAT/OBL LT Normal [facility] XR CHEST 1V FRONTALon 2023 XR CHEST 1V FRONTAL Normal [facility] XR FEMUR 2V AP/LAT LTon XR FEMUR 2V AP/LAT LT Normal [facility] XR HIP 3V PELV+ AP/LAT LTon 05-06-2024 XR HIP 3V PELV+ AP/LAT LT Normal [facility] XR HIP 3V PELV+ AP/LAT RTon 05-06-2024 XR HIP 3V PELV+ AP/LAT RT Normal [facility] aPTT PPPon 05-06-2024 aPTT Coag (PPP) [Time] 27.0 s Normal 23.0-32.4 [facility] Comment on above: Order Comment: Bernardoi men Type: BLOOD SPECIMENOrdering Facility: [facility] Address: [address] [place] [address] Performed By: #### 1 4979-9 ####[facility] LABORATORYCLIA [id number] [place] [id number] [facility] [place] 25-hydroxyvitamin D3 [Mass/V ol]on 05-05-2024 Interpretation and review of laboratory results Normal [facility] The reference range interval was based on an analysis of samples from healthy adults and may not pertain to children from 0-18 years old[address] [facility] Absolute neutrophil countOrd ered By: Arden Leger on 05-05-2024 Neutrophils (Bld) [#/Vol] 4.9 10*3/uL 2.0-7.7 [facility] Basophil percentageOrdered B y: Arden Leger on 05-05-2024 Basophils/100 WBC (Bld) 0.6 % 0-1 [facility] Blood urea nitrogen (BUN)/cr eatinine ratioOrdered By: Arden Leger on 05-05-2024 Urea nitrogen/Creatinine [Mass ratio] 29.7 mg/mg High 10-20 [facility] Brain/Head without Contrasto n 05-05-2024 Brain/Head without Contrast Normal [facility] CBC panel Auto (Bld)on 05-05 Erythrocyte distribution width (RBC) [Ratio] 16.0 % High 11.5 - 15.0 % [facility] Hematocrit (Bld) [Volume fraction] 38.2 % 36.0 - 46.0 % [facility] Hemoglobin (Bld) [Mass/Vol] 12.1 g/dL 11.5 - 15.5 g/dL [facility] Interpretation and review of laboratory results Abnormal [facility] MCH (RBC) [Entitic mass] 28.8 pg 26.0 - 34.0 pg [facility] MCHC (RBC) [Mass/Vol] 31.7 g/dL 30.5 - 36.0 g/dL [facility] MCV (RBC) [Entitic vol] 91.0 fL 80.0 - 100.0 fL [facility] Nucleated RBC (Bld) [#/Vol] NINF [facility] Platelet mean volume (Bld) [Entitic vol] 10.0 fL 9.0 - 12.7 fL [facility] Platelets (Bld) [#/Vol] 362 10*3/uL [facility] RBC (Bld) [#/Vol] 4.20 10*6/uL 3.90 - 5.2 0 m/uL [facility] WBC (Bld) [#/Vol] 6.62 10*3/uL [facility] Carbon dioxide measurementOr dered By: Arden Leger on 05-05-2024 CO2 [Moles/Vol] 24.0 mmol/L 21.0-32.0 [facility] Chloride measurementOrdered By: Arden Leger on 05-05-2024 Chloride [Moles/Vol] 109 mmol/L High 98-107 [facility] Cobalamin (Vitamin B12) [Mas s/Vol]on 05-05-2024 Interpretation and review of laboratory results Normal [facility] Comprehensive metabolic 2000 panelOrdered By: Hayley Mark on 05-05-2024 Albumin [Mass/Vol] 3.6 g/dL Low 3.9 - 4.9 g/dL [facility] ALP [Catalytic activity/Vol] 147 U/L High 34 - 123 U/L [facility] ALT [Catalytic activity/Vol] 9 U/L 7 - 38 U/L [facility] Anion gap [Moles/Vol] 14 mmol/L 8 - 15 mmol/L [facility] AST [Catalytic activity/Vol] 15 U/L 13 - 35 U/L [facility] Bilirubin [Mass/Vol] 0.2 mg/dL 0.2 - 1 .3 mg/dL [facility] Calcium [Mass/Vol] 9.7 mg/dL 8.5 - 10. 2 mg/dL [facility] Chloride [Moles/Vol] 102 mmol/L 98 - 10 7 mmol/L [facility] CO2 [Moles/Vol] 22 mmol/L 22 - 30 mmol/L [facility] Creatinine [Mass/Vol] 0.59 mg/dL 0.58 - 0.96 mg/dL [facility] GFR/1.73 sq M.predicted among non-blacks MDRD (S/P/Bld) [Vol rate/Area] 90 mL/min/{1.73_m2} - PINF [facility] Comment on above: Estimated Glomerular Filtration [...] 164 mg/dL High 74 - 99 mg/dL [facility] Comment on above: The [place] Di[employer] (ADA) provides guidance for [...] Standards of Medical Care in Diabetes 2016, [place] [employer]. Diabetes Care. 2016.39(Suppl 1). Interpretation and review of laboratory results Abnormal [facility] Potassium [Moles/Vol] 3.8 mmol/L 3.7 - 5.1 mmol/L [facility] Protein [Mass/Vol] 6.8 g/dL 6.3 - 8.0 g/dL [facility] Sodium [Moles/Vol] 138 mmol/L 136 - 144 mmol/L [facility] Urea nitrogen [Mass/Vol] 18 mg/dL 7 - 21 mg/dL [facility] Emergency Department Summary on 05-05-2024 Emergency Department Summary Normal [facility] Eosinophil percentageOrdered By: Arden Leger on 05-05-2024 Eosinophils/100 WBC (Bld) 2.6 % 0-5 [facility] Erythrocyte distribution wid th (RBC) [Ratio]Ordered By: Arden Leger on 05-05-2024 Erythrocyte distribution width (RBC) [Entitic vol] 54.1 fL High 35.1-43.9 [facility] Erythrocyte distribution wid th ratioOrdered By: Arden Leger on 05-05-2024 Erythrocyte distribution width (RBC) [Ratio] 15.9 % High 11.6-14.6 [facility] Estimated glomerular filtrat ion rate (GFR) AmericanOrdered By: Arden Leger on 05-05-2024 Estimated GFR (MDRD) Amer 130 mL/min >60 [facility] Comment on above: GFR Calc Estimation of creatinine gin aranceOrdered By: Arden Leger on 05-05-2024 Estimated Creatinine Clearance Calc 60.00 ml/min [facility] Glomerular filtration rate ( GFR) estimationOrdered By: Arden Leger on 05-05-2024 Estimated GFR (MDRD) Non-Af Amer 107 mL/min >60 [facility] Comment on above: Non- GFR Calc Glucose measurementOrdered B y: Arden Leger on 05-05-2024 Glucose [Mass/Vol] 134 mg/dL High 74-106 [facility] Comment on above: Fasting Glucose resu lt greater than or equal to 126 mg/dL suggests DIABETES MELLITUS per A.D.A. criteria. Hematocrit Auto (Bld) [Volum e fraction]Ordered By: Arden Leger on 05-05-2024 Hematocrit (Bld) [Volume fraction] 36.9 % Low 37-47 [facility] Hemoglobin measurementOrdere d By: Arden Leger on 05-05-2024 Hemoglobin (Bld) [Mass/Vol] 11.4 g/dL Low 12.0-15.0 [facility] Immature granulocytes/100 WB C Auto (Bld)Ordered By: Arden Leger on 05-05-2024 Immature granulocytes/100 WBC (Bld) 1.500 % High 0.0-0.9 [facility] Comment on above: IG% - Immature Granu locytes (promyelocytes, myelocytes and metamyelocytes) > 1% indicates that a LEFT SHIFT is Present. International normalized rat io (INR) calculationOrdered By: Arden Leger on 05-05-2024 INR Coag (Bld) [Relative time] 1.1 {INR} [facility] Lymphocytes Auto (Unsp spec) [#/Vol]Ordered By: Arden Leger on 05-05-2024 Lymphocytes (Bld) [#/Vol] 1.89 10*3/uL 0.83-4.51 [facility] Lymphocytes/100 WBC Auto (Un sp spec)Ordered By: Arden Leger on 05-05-2024 Lymphocytes/100 WBC (Bld) 23.6 % 19-41 [facility] MCV (mean corpuscular volume ) determinationOrdered By: Arden Leger on 05-05-2024 MCV (RBC) [Entitic vol] 92.5 fL 81-99 [facility] Mean corpuscular hemoglobin (MCH) determinationOrdered By: Arden Leger on 05-05-2024 MCH (RBC) [Entitic mass] 28.6 pg 27.0-32.0 [facility] Mean corpuscular hemoglobin concentration (MCHC) determinationOrdered By: Arden Leger on 05-05-2024 MCHC (RBC) [Mass/Vol] 30.9 g/dL Low 32-36 [facility] Mean platelet volume determi nationOrdered By: Arden Leger on 05-05-2024 Platelet mean volume (Bld) [Entitic vol] 10.7 fL 6.2-12.0 [facility] Monocyte percentageOrdered B y: Arden Leger on 05-05-2024 Monocytes/100 WBC (Bld) 10.4 % High 0-10 [facility] Neutrophil percentageOrdered By: Arden Leger on 05-05-2024 Neutrophils/100 WBC (Bld) 61.3 % 47-70 [facility] Nucleated red blood cell per centageOrdered By: Arden Leger on 05-05-2024 Nucleated RBC/100 WBC (Bld) [Ratio] 0 % 0-5 [facility] Platelet countOrdered By: Hilton Leger on 05-05-2024 Platelets (Bld) [#/Vol] 373 10*3/uL 150-450 [facility] Potassium measurementOrdered By: Arden Leger on 05-05-2024 Potassium [Moles/Vol] 3.6 mmol/L 3.5-5.1 [facility] Comment on above: Slight Hemolysis, Re sult may be falsely increased. Prothrombin timeOrdered By: Arden Leger on 05-05-2024 PT Coag (PPP) [Time] 14.1 s 11.7-14.9 [facility] RBC Auto (Bld) [#/Vol]Ordere d By: Arden Leger on 05-05-2024 RBC (Bld) [#/Vol] 3.99 10*6/uL Low 4.2-5.4 [facility] Serum anion gap measurementO rdered By: Arden Leger on 05-05-2024 Anion gap [Moles/Vol] 7 mmol/L 5-15 [facility] Serum or plasma calcium jessi urement (mass/volume)Ordered By: Arden Leger on 05-05-2024 Calcium [Mass/Vol] 8.6 mg/dL 8.5-10.1 [facility] Serum or plasma creatinine m easurement (mass/volume)Ordered By: Arden Leger on 05-05-2024 Creatinine [Mass/Vol] 0.57 mg/dL 0.55-1.02 [facility] Comment on above: The validity of the calculated GFR & GFRAA in patients over 70 years has not been determined. Clinical correlation is essential. Serum or plasma urea nitroge n measurement (mass/volume)Ordered By: Arden Leger on 05-05-2024 Urea nitrogen [Mass/Vol] 17 mg/dL 7-18 [facility] Sodium levelOrdered By: Arden Leger on 05-05-2024 Sodium [Moles/Vol] 140 mmol/L 136-145 [facility] Spine Cervical without Contr ason 05-05-2024 Spine Cervical without Contras Normal [facility] Spine Lumbar without Contras ton 05-05-2024 Spine Lumbar without Contrast Normal [facility] Spine Thoracic without Contr ason 05-05-2024 Spine Thoracic without Contras Normal [facility] Urinalysis, Completeon 05-05 BACTERIA Normal None Seen [facility] Comment on above: Order Comment: PT. D ISCHARGEDCOLLECTOR TO SPECIFY Result Comment: PT D ISCHARGED Performed By: #### L 400.0001 ####[facility] [address] [place], [address] BILIRUBIN URINE Normal Negative [facility] Comment on above: Order Comment: PT. D ISCHARGEDCOLLECTOR TO SPECIFY Result Comment: PT D ISCHARGED Performed By: #### L 400.0001 ####[facility] [address] [place], [address] Clarity (U) Normal Clear [facility] Comment on above: Order Comment: PT. D ISCHARGEDCOLLECTOR TO SPECIFY Result Comment: PT D ISCHARGED Performed By: #### L 400.0001 ####[facility] [address] [place], [address] Color (U) Normal Yellow [facility] Comment on above: Order Comment: PT. D ISCHARGEDCOLLECTOR TO SPECIFY Result Comment: PT D ISCHARGED Performed By: #### L 400.0001 ####[facility] [address] [place], [address] EPI,SQUAMOUS Normal 5-10 [facility] Comment on above: Order Comment: PT. D ISCHARGEDCOLLECTOR TO SPECIFY Result Comment: PT D ISCHARGED Performed By: #### L 400.0001 ####[facility] [address] [place], [address] GLUCOSE, UR Normal Normal [facility] Comment on above: Order Comment: PT. D ISCHARGEDCOLLECTOR TO SPECIFY Result Comment: PT D ISCHARGED Performed By: #### L 400.0001 ####[facility] [address] [place], [address] KETONE UR Normal Negative [facility] Comment on above: Order Comment: PT. D ISCHARGEDCOLLECTOR TO SPECIFY Result Comment: PT D ISCHARGED Performed By: #### L 400.0001 ####[facility] [address] [facility] [address] LEUK ESTERASE Normal Negative [facility] Comment on above: Order Comment: PT. D ISCHARGEDCOLLECTOR TO SPECIFY Result Comment: PT D ISCHARGED Performed By: #### L 400.0001 ####[facility] [address] [facility] [address] Mucus Ql (Urine sed) Normal [facility] Comment on above: Order Comment: PT. D ISCHARGEDCOLLECTOR TO SPECIFY Result Comment: PT D ISCHARGED Performed By: #### L 400.0001 ####[facility] [address] [place], [address] Nitrite Ql (U) Normal Negative [facility] Comment on above: Order Comment: PT. D ISCHARGEDCOLLECTOR TO SPECIFY Result Comment: PT D ISCHARGED Performed By: #### L 400.0001 ####[facility] [address] [facility] [address] OCCULT BLOOD-UR Normal Negative [facility] Comment on above: Order Comment: PT. D ISCHARGEDCOLLECTOR TO SPECIFY Result Comment: PT D ISCHARGED Performed By: #### L 400.0001 ####[facility] [address] [place], [address] pH UR Normal 5.0 - 8.0 [facility] Comment on above: Order Comment: PT. D ISCHARGEDCOLLECTOR TO SPECIFY Result Comment: PT D ISCHARGED Performed By: #### L 400.0001 ####[facility] [address] [place], [address] PROT DIPSTX Normal Negative [facility] Comment on above: Order Comment: PT. D ISCHARGEDCOLLECTOR TO SPECIFY Result Comment: PT D ISCHARGED Performed By: #### L 400.0001 ####[facility] [address] [place], [address] RBC Normal 0-5 [facility] Comment on above: Order Comment: PT. D ISCHARGEDCOLLECTOR TO SPECIFY Result Comment: PT D ISCHARGED Performed By: #### L 400.0001 ####[facility] [address] [place], [address] SP.GR. DIPSTX Normal 1.002-1.030 [facility] Comment on above: Order Comment: PT. D ISCHARGEDCOLLECTOR TO SPECIFY Result Comment: PT D ISCHARGED Performed By: #### L 400.0001 ####[facility] [address] [place], [address] UR Preservative Normal [facility] Comment on above: Order Comment: PT. D ISCHARGEDCOLLECTOR TO SPECIFY Result Comment: PT D ISCHARGED Performed By: #### L 400.0001 ####[facility] [address] [place], [address] UROBILI Normal Normal [facility] Comment on above: Order Comment: PT. D ISCHARGEDCOLLECTOR TO SPECIFY Result Comment: PT D ISCHARGED Performed By: #### L 400.0001 ####[facility] [address] [place], [address] WBC Normal 0-5 [facility] Comment on above: Order Comment: PT. D ISCHARGEDCOLLECTOR TO SPECIFY Result Comment: PT D ISCHARGED Performed By: #### L 400.0001 ####[facility] [address] [place], [address] VITAMIN B12on 05-05-2024 Cobalamin (Vitamin B12) [Mass/Vol] 473 pg/mL 232 - 1245 pg/mL [facility] VITAMIN D 25 HYDROXYon 05-05 25-hydroxyvitamin D3 [Mass/Vol] 58.3 ng/mL 31.0 - 80.0 ng/mL [facility] Comment on above: Classification of 25 [place] Vitamin D status: Deficiency/Insufficiency: < or = 30 ng/ml. Sufficiency/Optimal Levels: 31-80 ng/mL Toxicity: > 100 ng/mL. Test performed by chemiluminescent immunoassay. 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 MORBID OBESITY 08/18/2007 Obstructive sleep apnea Sleep study 2003 Occlusion and stenosis of carotid artery without mention of cerebral infarction 03/09/2006 mild stenosis shown on u/s at [facility] u/s repeated 02/02/07 with no change [...] DATE: March 30, 2024 TIME: 7:05 AM [facility] OPERATIVE NOon 03-30-2024 OPERATIVE NO HNO ID: [id number] Author: MORAIMA MONTELONGO MD Service: Pain Management Author Type: Physician Type: Operative Report Filed: 03/30/2024 08:12 Note Text: PATIENT NAME: Miriam Davenport SERVICE DATE: 03/30/2024 PROCEDURE NOTE PREOPERATIVE DIAGNOSIS(ES) Lumbar radiculopathy Lumbar disc displacement Lumbar canal stenosis without neurogenic claudication Lumbar DDD POSTOPERATIVE DIAGNOSIS(ES): Same PROCEDURE: Left L4-5 lumbar transforaminal epidural steroid injection under fluoroscopy. Fur Finisher(s): None, I performed the entire procedure. ANESTHESIA: [...] March 30, 2024 TIME: 8:12 AM Normal [facility] HIP, UNI W/ Pelvis 2-3 Views on 03-10-2024 HIP, UNI W/ Pelvis 2-3 Views Normal [facility] Orthopedic Visit Reporton Orthopedic Visit Report Normal [facility] Basic Metabolic Profile (BMP )on 02-17-2024 BUN Normal 7-18 [facility] Comment on above: Result Comment: Canc elled via OM: Order cancelled - Patient discharged Performed By: #### L 500.2500, L100.0100 ####[facility] [address] [place], [address] BUN/CRE Normal 10-20 [facility] Comment on above: Result Comment: Canc elled via OM: Order cancelled - Patient discharged Performed By: #### L 500.2500, L100.0100 ####[facility] [address] [place], [address] CA,Total Normal 8.5-10.1 [facility] Comment on above: Result Comment: Canc elled via OM: Order cancelled - Patient discharged Performed By: #### L 500.2500, L100.0100 ####[facility] [address] [place], [address] CL Normal 98-107 [facility] Comment on above: Result Comment: Canc elled via OM: Order cancelled - Patient discharged Performed By: #### L 500.2500, L100.0100 ####[facility] [address] [place], [address] CO2 Normal 21.0-32.0 [facility] Comment on above: Result Comment: Canc elled via OM: Order cancelled - Patient discharged Performed By: #### L 500.2500, L100.0100 ####[facility] [address] [place], [address] CREAT,SERUM Normal 0.55-1.02 [facility] Comment on above: Result Comment: Canc elled via OM: Order cancelled - Patient discharged Performed By: #### L 500.2500, L100.0100 ####[facility] [address] [place], [address] EST GFR Normal >60 [facility] Comment on above: Result Comment: Canc elled via OM: Order cancelled - Patient discharged Performed By: #### L 500.2500, L100.0100 ####[facility] [address] [place], [address] EST GFR - AA Normal >60 [facility] Comment on above: Result Comment: Canc elled via OM: Order cancelled - Patient discharged Performed By: #### L 500.2500, L100.0100 ####[facility] [address] [place], [address] GAP Normal 5-15 [facility] Comment on above: Result Comment: Canc elled via OM: Order cancelled - Patient discharged Performed By: #### L 500.2500, L100.0100 ####[facility] [address] [place], [address] GLU Normal 74-106 [facility] Comment on above: Result Comment: Canc elled via OM: Order cancelled - Patient discharged Performed By: #### L 500.2500, L100.0100 ####[facility] [address] [place], [address] Potassium Normal 3.5-5.1 [facility] Comment on above: Result Comment: Canc elled via OM: Order cancelled - Patient discharged Performed By: #### L 500.2500, L100.0100 ####[facility] [address] [place], [address] Basic Metabolic Profile (BMP) Normal 136-145 [facility] Comment on above: Result Comment: Canc elled via OM: Order cancelled - Patient discharged Performed By: #### L 500.2500, L100.0100 ####[facility] [address] [place], [address] CBC W/Diff, Automatedon 09- Absolute Neut Normal 2.0-7.7 [facility] Comment on above: Result Comment: Canc elled via OM: Order cancelled - Patient discharged Performed By: #### L 500.2500, L100.0100 ####[facility] [address] [place], [address] HCT Normal 37-47 [facility] Comment on above: Result Comment: Canc elled via OM: Order cancelled - Patient discharged Performed By: #### L 500.2500, L100.0100 ####[facility] [address] [place], [address] HGB Normal 12.0-15.0 [facility] Comment on above: Result Comment: Canc elled via OM: Order cancelled - Patient discharged Performed By: #### L 500.2500, L100.0100 ####[facility] [address] [place], [address] MCH Normal 27.0-32.0 [facility] Comment on above: Result Comment: Canc elled via OM: Order cancelled - Patient discharged Performed By: #### L 500.2500, L100.0100 ####[facility] [address] [place], [address] MCHC Normal 32-36 [facility] Comment on above: Result Comment: Canc elled via OM: Order cancelled - Patient discharged Performed By: #### L 500.2500, L100.0100 ####[facility] [address] [place], [address] MCV Normal 81-99 [facility] Comment on above: Result Comment: Canc elled via OM: Order cancelled - Patient discharged Performed By: #### L 500.2500, L100.0100 ####[facility] [address] [place], [address] NEUT% Normal 47-70 [facility] Comment on above: Result Comment: Canc elled via OM: Order cancelled - Patient discharged Performed By: #### L 500.2500, L100.0100 ####[facility] [address] [place], [address] PLT Normal 150-450 [facility] Comment on above: Result Comment: Canc elled via OM: Order cancelled - Patient discharged Performed By: #### L 500.2500, L100.0100 ####[facility] [address] [place], [address] RBC Normal 4.2-5.4 [facility] Comment on above: Result Comment: Canc elled via OM: Order cancelled - Patient discharged Performed By: #### L 500.2500, L100.0100 ####[facility] [address] [place], [address] RDW CV Normal 11.6-14.6 [facility] Comment on above: Result Comment: Canc elled via OM: Order cancelled - Patient discharged Performed By: #### L 500.2500, L100.0100 ####[facility] [address] [place], [address] RDW SD Normal 35.1-43.9 [facility] Comment on above: Result Comment: Canc elled via OM: Order cancelled - Patient discharged Performed By: #### L 500.2500, L100.0100 ####[facility] [address] [place], [address] WBC Normal 4.4-11.0 [facility] Comment on above: Result Comment: Canc elled via OM: Order cancelled - Patient discharged Performed By: #### L 500.2500, L100.0100 ####[facility] [address] [place], [address] Basic Metabolic Profile (BMP )on 02-10-2024 BUN Normal 7-18 [facility] Comment on above: Result Comment: Canc elled via OM: Order cancelled - Patient discharged Performed By: #### L 100.0100, L500.2500 ####[facility] [address] [place], [address] BUN/CRE Normal 10-20 [facility] Comment on above: Result Comment: Canc elled via OM: Order cancelled - Patient discharged Performed By: #### L 100.0100, L500.2500 ####[facility] [address] [place], [address] CA,Total Normal 8.5-10.1 [facility] Comment on above: Result Comment: Canc elled via OM: Order cancelled - Patient discharged Performed By: #### L 100.0100, L500.2500 ####[facility] [address] [facility] [address] CL Normal 98-107 [facility] Comment on above: Result Comment: Canc elled via OM: Order cancelled - Patient discharged Performed By: #### L 100.0100, L500.2500 ####[facility] [address] [facility] [address] CO2 Normal 21.0-32.0 [facility] Comment on above: Result Comment: Canc elled via OM: Order cancelled - Patient discharged Performed By: #### L 100.0100, L500.2500 ####[facility] [address] [place], [address] CREAT,SERUM Normal 0.55-1.02 [facility] Comment on above: Result Comment: Canc elled via OM: Order cancelled - Patient discharged Performed By: #### L 100.0100, L500.2500 ####[facility] [address] [facility] [address] EST GFR Normal >60 [facility] Comment on above: Result Comment: Canc elled via OM: Order cancelled - Patient discharged Performed By: #### L 100.0100, L500.2500 ####[facility] [address] [place], [address] EST GFR - AA Normal >60 [facility] Comment on above: Result Comment: Canc elled via OM: Order cancelled - Patient discharged Performed By: #### L 100.0100, L500.2500 ####[facility] [address] [place], [address] GAP Normal 5-15 [facility] Comment on above: Result Comment: Canc elled via OM: Order cancelled - Patient discharged Performed By: #### L 100.0100, L500.2500 ####[facility] [address] [place], [address] GLU Normal 74-106 [facility] Comment on above: Result Comment: Canc elled via OM: Order cancelled - Patient discharged Performed By: #### L 100.0100, L500.2500 ####[facility] [address] [place], [address] Potassium Normal 3.5-5.1 [facility] Comment on above: Result Comment: Canc elled via OM: Order cancelled - Patient discharged Performed By: #### L 100.0100, L500.2500 ####[facility] [address] [place], [address] Basic Metabolic Profile (BMP) Normal 136-145 [facility] Comment on above: Result Comment: Canc elled via OM: Order cancelled - Patient discharged Performed By: #### L 100.0100, L500.2500 ####[facility] [address] [place], [address] CBC W/Diff, Automatedon 09-1 Absolute Neut Normal 2.0-7.7 [facility] Comment on above: Result Comment: Canc elled via OM: Order cancelled - Patient discharged Performed By: #### L 100.0100, L500.2500 ####[facility] [address] [place], [address] HCT Normal 37-47 [facility] Comment on above: Result Comment: Canc elled via OM: Order cancelled - Patient discharged Performed By: #### L 100.0100, L500.2500 ####[facility] [address] [place], [address] HGB Normal 12.0-15.0 [facility] Comment on above: Result Comment: Canc elled via OM: Order cancelled - Patient discharged Performed By: #### L 100.0100, L500.2500 ####[facility] [address] [place], [address] MCH Normal 27.0-32.0 [facility] Comment on above: Result Comment: Canc elled via OM: Order cancelled - Patient discharged Performed By: #### L 100.0100, L500.2500 ####[facility] [address] [place], [address] MCHC Normal 32-36 [facility] Comment on above: Result Comment: Canc elled via OM: Order cancelled - Patient discharged Performed By: #### L 100.0100, L500.2500 ####[facility] [address] [place], [address] MCV Normal 81-99 [facility] Comment on above: Result Comment: Canc elled via OM: Order cancelled - Patient discharged Performed By: #### L 100.0100, L500.2500 ####[facility] [address] [place], [address] NEUT% Normal 47-70 [facility] Comment on above: Result Comment: Canc elled via OM: Order cancelled - Patient discharged Performed By: #### L 100.0100, L500.2500 ####[facility] [address] [place], [address] PLT Normal 150-450 [facility] Comment on above: Result Comment: Canc elled via OM: Order cancelled - Patient discharged Performed By: #### L 100.0100, L500.2500 ####[facility] [address] [place], [address] RBC Normal 4.2-5.4 [facility] Comment on above: Result Comment: Canc elled via OM: Order cancelled - Patient discharged Performed By: #### L 100.0100, L500.2500 ####[facility] [address] [place], [address] RDW CV Normal 11.6-14.6 [facility] Comment on above: Result Comment: Canc elled via OM: Order cancelled - Patient discharged Performed By: #### L 100.0100, L500.2500 ####[facility] [address] [place], [address] RDW SD Normal 35.1-43.9 [facility] Comment on above: Result Comment: Canc elled via OM: Order cancelled - Patient discharged Performed By: #### L 100.0100, L500.2500 ####[facility] [address] [place], [address] WBC Normal 4.4-11.0 [facility] Comment on above: Result Comment: Canc elled via OM: Order cancelled - Patient discharged Performed By: #### L 100.0100, L500.2500 ####[facility] [address] [place], [address] Hemoglobin A1con 02-09-2024 HbA1c (Bld) [Mass fraction] 6.3 % High 3.8-5.6 [facility] Comment on above: Order Comment: 102-1 Result Comment: Norm al < 5.7 % Prediabetic 5.7 - 6.4 % Diabetic >or= 6.5 % Please note range changes. Performed By: #### L 501.9985, L506.1000 ####[facility] [address] [place], [address] Vitamin D,25 Hydroxyon 02-08 Vitamin D 25-OH 61.2 ng/mL Normal [facility] Comment on above: Order Comment: 102-1 Result Comment: Ofelia min D 25(OH) Status Range Deficiency <20 ng/mL (50nmol/L) Insufficiency 20 - 30 ng/mL (50 - 75 nmol/L) Sufficiency 30 - 100 ng/mL (75 - 250 nmol/L) Toxicity >100 ng/mL (>250 nmol/L) Performed By: #### L 501.9985, L506.1000 ####[facility] [address] [place], [address] Basic Metabolic Profile (BMP )on 2024 BUN/CRE 21.4 RATIO High 10-20 [facility] Comment on above: Order Comment: 102.1 Performed By: #### L 100.0500, L500.2500 ####[facility] [address] [place], [address] CA,Total 9.4 mg/dL Normal 8.5-10.1 [facility] Comment on above: Order Comment: 102.1 Performed By: #### L 100.0500, L500.2500 ####[facility] [address] [place], [address] Chloride [Moles/Vol] 105 mmol/L Normal 98-107 [facility] Comment on above: Order Comment: 102.1 Performed By: #### L 100.0500, L500.2500 ####[facility] [address] [place], [address] CO2 [Moles/Vol] 25.0 mmol/L Normal 21.0-32.0 [facility] Comment on above: Order Comment: 102.1 Performed By: #### L 100.0500, L500.2500 ####[facility] [address] [place], [address] Creatinine [Mass/Vol] 0.56 mg/dL Normal 0.55-1.02 [facility] Comment on above: Order Comment: 102.1 Result Comment: The validity of the calculated GFR GFRAA in patients over70 years has not been determined. Clinical correlation isessential. Performed By: #### L 100.0500, L500.2500 ####[facility] [address] [place], [address] EST GFR - AA 133 mL/min Normal >60 [facility] Comment on above: Order Comment: 102.1 Result Comment: Afri can Tristanian GFR Calc Performed By: #### L 100.0500, L500.2500 ####[facility] [address] [place], [address] GAP 8 Normal 5-15 [facility] Comment on above: Order Comment: 102.1 Performed By: #### L 100.0500, L500.2500 ####[facility] [address] [place], [address] GFR/1.73 sq M.predicted among non-blacks MDRD (S/P/Bld) [Vol rate/Area] 110 mL/min/{1.73_m2} Normal >60 [facility] Comment on above: Order Comment: 102.1 Result Comment: Non- GFR Calc Performed By: #### L 100.0500, L500.2500 ####[facility] [address] [place], [address] Glucose [Mass/Vol] 132 mg/dL High 74-106 [facility] Comment on above: Order Comment: 102.1 Result Comment: Fast ing Glucose result greater than or equal to 126 mg/dLsuggests DIABETES MELLITUS per A.D.A. criteria. Performed By: #### L 100.0500, L500.2500 ####[facility] [address] [place], [address] Potassium [Moles/Vol] 3.6 mmol/L Normal 3.5-5.1 [facility] Comment on above: Order Comment: 102.1 Performed By: #### L 100.0500, L500.2500 ####[facility] [address] [place], [address] Sodium [Moles/Vol] 138 mmol/L Normal 136-145 [facility] Comment on above: Order Comment: 102.1 Performed By: #### L 100.0500, L500.2500 ####[facility] [address] [place], [address] Urea nitrogen [Mass/Vol] 12 mg/dL Normal 7-18 [facility] Comment on above: Order Comment: 102.1 Performed By: #### L 100.0500, L500.2500 ####[facility] [address] [place], [address] CBC-Complete Blood Cnt No Di ffon 2024 Erythrocyte distribution width (RBC) [Ratio] 15.9 % High 11.6-14.6 [facility] Comment on above: Order Comment: 102.1 Performed By: #### L 100.0500, L500.2500 ####[facility] [address] [place], [address] Hematocrit (Bld) [Volume fraction] 36.7 % Low 37-47 [facility] Comment on above: Order Comment: 102.1 Performed By: #### L 100.0500, L500.2500 ####[facility] [address] [place], [address] Hemoglobin (Bld) [Mass/Vol] 11.1 g/dL Low 12.0-15.0 [facility] Comment on above: Order Comment: 102.1 Performed By: #### L 100.0500, L500.2500 ####[facility] [address] [place], [address] MCH (RBC) [Entitic mass] 28.7 pg Normal 27.0-32.0 [facility] Comment on above: Order Comment: 102.1 Performed By: #### L 100.0500, L500.2500 ####[facility] [address] [place], [address] MCHC (RBC) [Mass/Vol] 30.2 g/dL Low 32-36 [facility] Comment on above: Order Comment: 102.1 Performed By: #### L 100.0500, L500.2500 ####[facility] [address] [place], [address] MCV (RBC) [Entitic vol] 94.8 fL Normal 81-99 [facility] Comment on above: Order Comment: 102.1 Performed By: #### L 100.0500, L500.2500 ####[facility] [address] [place], [address] Platelet mean volume (Bld) [Entitic vol] 11.1 fL Normal 6.2-12.0 [facility] Comment on above: Order Comment: 102.1 Performed By: #### L 100.0500, L500.2500 ####[facility] [address] [place], [address] Platelets (Bld) [#/Vol] 388 10*3/uL Normal 150-450 [facility] Comment on above: Order Comment: 102.1 Performed By: #### L 100.0500, L500.2500 ####[facility] [address] [place], [address] RBC (Bld) [#/Vol] 3.87 10*6/uL Low 4.2-5.4 [facility] Comment on above: Order Comment: 102.1 Performed By: #### L 100.0500, L500.2500 ####[facility] [address] [place], [address] RDW SD 55.1 fl High 35.1-43.9 [facility] Comment on above: Order Comment: 102.1 Performed By: #### L 100.0500, L500.2500 ####[facility] [address] [place], [address] WBC (Bld) [#/Vol] 6.5 10*3/uL Normal 4.4-11.0 [facility] Comment on above: Order Comment: 102.1 Performed By: #### L 100.0500, L500.2500 ####[facility] [address] [place], [address] Bedside Glucoseon 02-04-2024 FINGERSTICK GLU 125 mg/dL High 74-106 [facility] Comment on above: Result Comment: JOAO ISRAEL OF PATIENT CARE PER NURSING PROTOCOL Performed By: #### L 501.080 ####[facility] [address] [place], [address] Basic Metabolic Profile (BMP )on 02-03-2024 BUN/CRE 28.0 RATIO High 10-20 [facility] Comment on above: Performed By: #### L 100.0100, L500.2500 ####[facility] [address] [place], [address] CA,Total 9.1 mg/dL Normal 8.5-10.1 [facility] Comment on above: Performed By: #### L 100.0100, L500.2500 ####[facility] [address] [place], [address] Chloride [Moles/Vol] 105 mmol/L Normal 98-107 [facility] Comment on above: Performed By: #### L 100.0100, L500.2500 ####[facility] [address] [place], [address] CO2 [Moles/Vol] 28.0 mmol/L Normal 21.0-32.0 [facility] Comment on above: Performed By: #### L 100.0100, L500.2500 ####[facility] [address] [place], [address] Creatinine [Mass/Vol] 0.61 mg/dL Normal 0.55-1.02 [facility] Comment on above: Result Comment: The validity of the calculated GFR GFRAA in patients over70 years has not been determined. Clinical correlation isessential. Performed By: #### L 100.0100, L500.2500 ####[facility] [address] [place], [address] ECRCL 61.21 ml/min Normal [facility] Comment on above: Performed By: #### L 100.0100, L500.2500 ####[facility] [address] [place], [address] EST GFR - AA 122 mL/min Normal >60 [facility] Comment on above: Result Comment: Afri can Tristanian GFR Calc Performed By: #### L 100.0100, L500.2500 ####[facility] [address] [place], [address] GAP 4 Low 5-15 [facility] Comment on above: Performed By: #### L 100.0100, L500.2500 ####[facility] [address] [place], [address] GFR/1.73 sq M.predicted among non-blacks MDRD (S/P/Bld) [Vol rate/Area] 100 mL/min/{1.73_m2} Normal >60 [facility] Comment on above: Result Comment: Non- GFR Calc Performed By: #### L 100.0100, L500.2500 ####[facility] [address] [place], [address] Glucose [Mass/Vol] 135 mg/dL High 74-106 [facility] Comment on above: Result Comment: Fast ing Glucose result greater than or equal to 126 mg/dLsuggests DIABETES MELLITUS per A.D.A. criteria. Performed By: #### L 100.0100, L500.2500 ####[facility] [address] [place], [address] Potassium [Moles/Vol] 3.9 mmol/L Normal 3.5-5.1 [facility] Comment on above: Performed By: #### L 100.0100, L500.2500 ####[facility] [address] [place], [address] Sodium [Moles/Vol] 137 mmol/L Normal 136-145 [facility] Comment on above: Performed By: #### L 100.0100, L500.2500 ####[facility] [address] [place], [address] Urea nitrogen [Mass/Vol] 17 mg/dL Normal 7-18 [facility] Comment on above: Performed By: #### L 100.0100, L500.2500 ####[facility] [address] [place], [address] Bedside Glucoseon 02-03-2024 FINGERSTICK GLU 150 mg/dL High 74-106 [facility] Comment on above: Result Comment: JOAO ISRAEL OF PATIENT CARE PER NURSING PROTOCOL Performed By: #### L 501.080 ####[facility] [address] [place], [address] CBC W/Diff, Automatedon Absolute Lymph 1.43 X10 3/uL Normal 0.83-4.51 [facility] Comment on above: Performed By: #### L 100.0100, L500.2500 ####[facility] [address] [place], [address] Absolute Neut 4.3 X10 3/uL Normal 2.0-7.7 [facility] Comment on above: Performed By: #### L 100.0100, L500.2500 ####[facility] [address] [place], [address] Basophils/100 WBC (Bld) 0.7 % Normal 0-1 [facility] Comment on above: Performed By: #### L 100.0100, L500.2500 ####[facility] [address] [place], [address] Eosinophils/100 WBC (Bld) 4.0 % Normal 0-5 [facility] Comment on above: Performed By: #### L 100.0100, L500.2500 ####[facility] [address] [place], [address] Erythrocyte distribution width (RBC) [Ratio] 15.7 % High 11.6-14.6 [facility] Comment on above: Performed By: #### L 100.0100, L500.2500 ####[facility] [address] [place], [address] Hematocrit (Bld) [Volume fraction] 32.4 % Low 37-47 [facility] Comment on above: Performed By: #### L 100.0100, L500.2500 ####[facility] [address] [place], [address] Hemoglobin (Bld) [Mass/Vol] 9.8 g/dL Low 12.0-15.0 [facility] Comment on above: Performed By: #### L 100.0100, L500.2500 ####[facility] [address] [place], [address] IG% 0.300 Normal 0.0-0.9 [facility] Comment on above: Result Comment: IG% - Immature Granulocytes (promyelocytes, myelocytes andmetamyelocytes) > 1% indicates that a LEFT SHIFT is Present. Performed By: #### L 100.0100, L500.2500 ####[facility] [address] [place], [address] Lymphocytes/100 WBC (Bld) 21.1 % Normal 19-41 [facility] Comment on above: Performed By: #### L 100.0100, L500.2500 ####[facility] [address] [place], [address] MCH (RBC) [Entitic mass] 28.5 pg Normal 27.0-32.0 [facility] Comment on above: Performed By: #### L 100.0100, L500.2500 ####[facility] [address] [place], [address] MCHC (RBC) [Mass/Vol] 30.2 g/dL Low 32-36 [facility] Comment on above: Performed By: #### L 100.0100, L500.2500 ####[facility] [address] [place], [address] MCV (RBC) [Entitic vol] 94.2 fL Normal 81-99 [facility] Comment on above: Performed By: #### L 100.0100, L500.2500 ####[facility] [address] [place], [address] Monocytes/100 WBC (Bld) 10.5 % High 0-10 [facility] Comment on above: Performed By: #### L 100.0100, L500.2500 ####[facility] [address] [place], [address] Neutrophils/100 WBC (Bld) 63.4 % Normal 47-70 [facility] Comment on above: Performed By: #### L 100.0100, L500.2500 ####[facility] [address] [place], [address] Nucleated RBC (Bld) [#/Vol] 0 10*3/uL Normal 0-5 [facility] Comment on above: Performed By: #### L 100.0100, L500.2500 ####[facility] [address] [place], [address] Platelet mean volume (Bld) [Entitic vol] 10.2 fL Normal 6.2-12.0 [facility] Comment on above: Performed By: #### L 100.0100, L500.2500 ####[facility] [address] [place], [address] Platelets (Bld) [#/Vol] 399 10*3/uL Normal 150-450 [facility] Comment on above: Performed By: #### L 100.0100, L500.2500 ####[facility] [address] [place], [address] RBC (Bld) [#/Vol] 3.44 10*6/uL Low 4.2-5.4 [facility] Comment on above: Performed By: #### L 100.0100, L500.2500 ####[facility] [address] [place], [address] RDW SD 53.8 fl High 35.1-43.9 [facility] Comment on above: Performed By: #### L 100.0100, L500.2500 ####[facility] [address] [place], [address] WBC (Bld) [#/Vol] 6.8 10*3/uL Normal 4.4-11.0 [facility] Comment on above: Performed By: #### L 100.0100, L500.2500 ####[facility] [address] [place], [address] Bedside Glucoseon 02-02-2024 FINGERSTICK GLU 98 mg/dL Normal 74-106 [facility] Comment on above: Result Comment: JOAO GEMENT OF PATIENT CARE PER NURSING PROTOCOL Performed By: #### L 501.080 ####[facility] [address] [place], [address] Bedside Glucoseon 02-01-2024 FINGERSTICK GLU 139 mg/dL High 74-106 [facility] Comment on above: Result Comment: JOAO GEMENT OF PATIENT CARE PER NURSING PROTOCOL Performed By: #### L 501.080 ####[facility] [address] [place], [address] Bedside Glucoseon 01-31-2024 FINGERSTICK GLU 120 mg/dL High 74-106 [facility] Comment on above: Result Comment: JOAO GEMENT OF PATIENT CARE PER NURSING PROTOCOL Performed By: #### L 501.080 ####[facility] [address] [place], [address] Bedside Glucoseon 01-30-2024 FINGERSTICK GLU 102 mg/dL Normal 74-106 [facility] Comment on above: Result Comment: JOAO GEMENT OF PATIENT CARE PER NURSING PROTOCOL Performed By: #### L 501.080 ####[facility] [address] [place], [address] Bedside Glucoseon 01-29-2024 FINGERSTICK GLU 130 mg/dL High 74-106 [facility] Comment on above: Result Comment: JOAO GEMENT OF PATIENT CARE PER NURSING PROTOCOL Performed By: #### L 501.080 ####[facility] [address] [place], [address] Bedside Glucoseon 01-28-2024 FINGERSTICK GLU 132 mg/dL High 74-106 [facility] Comment on above: Result Comment: JOAO GEMENT OF PATIENT CARE PER NURSING PROTOCOL Performed By: #### L 501.080 ####[facility] [address] [place], [address] Basic Metabolic Profile (BMP )on 01-27-2024 BUN/CRE 34.7 RATIO High 10-20 [facility] Comment on above: Performed By: #### L 100.0100, L500.2500 ####[facility] [address] [place], [address] CA,Total 9.2 mg/dL Normal 8.5-10.1 [facility] Comment on above: Performed By: #### L 100.0100, L500.2500 ####[facility] [address] [place], [address] Chloride [Moles/Vol] 102 mmol/L Normal 98-107 [facility] Comment on above: Performed By: #### L 100.0100, L500.2500 ####[facility] [address] [place], [address] CO2 [Moles/Vol] 30.0 mmol/L Normal 21.0-32.0 [facility] Comment on above: Performed By: #### L 100.0100, L500.2500 ####[facility] [address] [place], [address] Creatinine [Mass/Vol] 0.58 mg/dL Normal 0.55-1.02 [facility] Comment on above: Result Comment: The validity of the calculated GFR GFRAA in patients over70 years has not been determined. Clinical correlation isessential. Performed By: #### L 100.0100, L500.2500 ####[facility] [address] [place], [address] ECRCL 61.88 ml/min Normal [facility] Comment on above: Performed By: #### L 100.0100, L500.2500 ####[facility] [address] [place], [address] EST GFR - AA 129 mL/min Normal >60 [facility] Comment on above: Result Comment: Afri can Tristanian GFR Calc Performed By: #### L 100.0100, L500.2500 ####[facility] [address] [place], [address] GAP 5 Normal 5-15 [facility] Comment on above: Performed By: #### L 100.0100, L500.2500 ####[facility] [address] [place], [address] GFR/1.73 sq M.predicted among non-blacks MDRD (S/P/Bld) [Vol rate/Area] 106 mL/min/{1.73_m2} Normal >60 [facility] Comment on above: Result Comment: Non- GFR Calc Performed By: #### L 100.0100, L500.2500 ####[facility] [address] [place], [address] Glucose [Mass/Vol] 154 mg/dL High 74-106 [facility] Comment on above: Result Comment: Fast ing Glucose result greater than or equal to 126 mg/dLsuggests DIABETES MELLITUS per A.D.A. criteria. Performed By: #### L 100.0100, L500.2500 ####[facility] [address] [place], [address] Potassium [Moles/Vol] 4.6 mmol/L Normal 3.5-5.1 [facility] Comment on above: Performed By: #### L 100.0100, L500.2500 ####[facility] [address] [place], [address] Sodium [Moles/Vol] 137 mmol/L Normal 136-145 [facility] Comment on above: Performed By: #### L 100.0100, L500.2500 ####[facility] [address] [place], [address] Urea nitrogen [Mass/Vol] 20 mg/dL High 7-18 [facility] Comment on above: Performed By: #### L 100.0100, L500.2500 ####[facility] [address] [place], [address] Bedside Glucoseon 01-27-2024 FINGERSTICK GLU 141 mg/dL High 74-106 [facility] Comment on above: Result Comment: JOAO [place]RAEL OF PATIENT CARE PER NURSING PROTOCOL Performed By: #### L 501.080 ####[facility] [address] [place], [address] CBC W/Diff, Automatedon 12-30 Absolute Lymph 1.02 X10 3/uL Normal 0.83-4.51 [facility] Comment on above: Performed By: #### L 100.0100, L500.2500 ####[facility] [address] [place], [address] Absolute Neut 5.9 X10 3/uL Normal 2.0-7.7 [facility] Comment on above: Performed By: #### L 100.0100, L500.2500 ####[facility] [address] [place], [address] Basophils/100 WBC (Bld) 0.9 % Normal 0-1 [facility] Comment on above: Performed By: #### L 100.0100, L500.2500 ####[facility] [address] [place], [address] Eosinophils/100 WBC (Bld) 3.0 % Normal 0-5 [facility] Comment on above: Performed By: #### L 100.0100, L500.2500 ####[facility] [address] [place], [address] Erythrocyte distribution width (RBC) [Ratio] 15.6 % High 11.6-14.6 [facility] Comment on above: Performed By: #### L 100.0100, L500.2500 ####[facility] [address] [place], [address] Hematocrit (Bld) [Volume fraction] 31.2 % Low 37-47 [facility] Comment on above: Performed By: #### L 100.0100, L500.2500 ####[facility] [address] [place], [address] Hemoglobin (Bld) [Mass/Vol] 9.4 g/dL Low 12.0-15.0 [facility] Comment on above: Performed By: #### L 100.0100, L500.2500 ####[facility] [address] [place], [address] IG% 0.500 Normal 0.0-0.9 [facility] Comment on above: Result Comment: IG% - Immature Granulocytes (promyelocytes, myelocytes andmetamyelocytes) > 1% indicates that a LEFT SHIFT is Present. Performed By: #### L 100.0100, L500.2500 ####[facility] [address] [place], [address] Lymphocytes/100 WBC (Bld) 12.8 % Low 19-41 [facility] Comment on above: Performed By: #### L 100.0100, L500.2500 ####[facility] [address] [place], [address] MCH (RBC) [Entitic mass] 28.3 pg Normal 27.0-32.0 [facility] Comment on above: Performed By: #### L 100.0100, L500.2500 ####[facility] [address] [place], [address] MCHC (RBC) [Mass/Vol] 30.1 g/dL Low 32-36 [facility] Comment on above: Performed By: #### L 100.0100, L500.2500 ####[facility] [address] [place], [address] MCV (RBC) [Entitic vol] 94.0 fL Normal 81-99 [facility] Comment on above: Performed By: #### L 100.0100, L500.2500 ####[facility] [address] [place], [address] Monocytes/100 WBC (Bld) 9.3 % Normal 0-10 [facility] Comment on above: Performed By: #### L 100.0100, L500.2500 ####[facility] [address] [place], [address] Neutrophils/100 WBC (Bld) 73.5 % High 47-70 [facility] Comment on above: Performed By: #### L 100.0100, L500.2500 ####[facility] [address] [place], [address] Nucleated RBC (Bld) [#/Vol] 0 10*3/uL Normal 0-5 [facility] Comment on above: Performed By: #### L 100.0100, L500.2500 ####[facility] [address] [place], [address] Platelet mean volume (Bld) [Entitic vol] 10.2 fL Normal 6.2-12.0 [facility] Comment on above: Performed By: #### L 100.0100, L500.2500 ####[facility] [address] [place], [address] Platelets (Bld) [#/Vol] 587 10*3/uL High 150-450 [facility] Comment on above: Performed By: #### L 100.0100, L500.2500 ####[facility] [address] [place], [address] RBC (Bld) [#/Vol] 3.32 10*6/uL Low 4.2-5.4 [facility] Comment on above: Performed By: #### L 100.0100, L500.2500 ####[facility] [address] [place], [address] RDW SD 53.2 fl High 35.1-43.9 [facility] Comment on above: Performed By: #### L 100.0100, L500.2500 ####[facility] [address] [place], [address] WBC (Bld) [#/Vol] 8.0 10*3/uL Normal 4.4-11.0 [facility] Comment on above: Performed By: #### L 100.0100, L500.2500 ####[facility] [address] [place], [address] COVID 19 AG RAPID (RN TY T)on 01-27-2024 SARS-CoV-2 (COVID-19) RNA ANKIT+probe Ql (Unsp spec) Normal [facility] Comment on above: Performed By: #### M 100.505 ####[facility] [address] [place], [address] HIP, UNI W/ Pelvis 2-3 Views on 01-27-2024 HIP, UNI W/ Pelvis 2-3 Views Normal [facility] Bedside Glucoseon 01-26-2024 FINGERSTICK GLU 148 mg/dL High 74-106 [facility] Comment on above: Result Comment: JOAO GEMENT OF PATIENT CARE PER NURSING PROTOCOL Performed By: #### L 501.080 ####[facility] [address] [place], [address] Bedside Glucoseon 01-25-2024 FINGERSTICK GLU 144 mg/dL High 74-106 [facility] Comment on above: Result Comment: JOAO GEMENT OF PATIENT CARE PER NURSING PROTOCOL Performed By: #### L 501.080 ####[facility] [address] [place], [address] Bedside Glucoseon 01-24-2024 FINGERSTICK GLU 130 mg/dL High 74-106 [facility] Comment on above: Result Comment: JOAO GEMENT OF PATIENT CARE PER NURSING PROTOCOL Performed By: #### L 501.080 ####[facility] [address] [place], [address] Bedside Glucoseon 01-23-2024 FINGERSTICK GLU 134 mg/dL High 74-106 [facility] Comment on above: Result Comment: JOAO GEMENT OF PATIENT CARE PER NURSING PROTOCOL Performed By: #### L 501.080 ####[facility] [address] [place], [address] Urine Cultureon 01-23-2024 URC Normal [facility] Comment on above: Performed By: #### M 100.2201 ####[facility] [address] [place], [address] Bedside Glucoseon 01-22-2024 FINGERSTICK GLU 157 mg/dL High 74-106 [facility] Comment on above: Result Comment: JOAO GEMENT OF PATIENT CARE PER NURSING PROTOCOL Performed By: #### L 501.080 ####[facility] [address] [place], [address] Bedside Glucoseon 01-21-2024 FINGERSTICK GLU 155 mg/dL High 74-106 [facility] Comment on above: Result Comment: JOAO GEMENT OF PATIENT CARE PER NURSING PROTOCOL Performed By: #### L 501.080 ####[facility] [address] [place], [address] Femur Min 2 Viewson 01-21-20 24 Femur Min 2 Views Normal [facility] Lumbar Spine 2 or 3 Viewson 01-21-2024 Lumbar Spine 2 or 3 Views Normal [facility] Pelvis 1 or 2 Viewson 2023 Pelvis 1 or 2 Views Normal [facility] Tibia Fibula 2 Viewson 01-20 Tibia Fibula 2 Views Normal [facility] Basic Metabolic Profile (BMP )on 01-20-2024 BUN/CRE 29.7 RATIO High 10-20 [facility] Comment on above: Performed By: #### L 500.2500, L100.0100 ####[facility] [address] [place], [address] CA,Total 8.8 mg/dL Normal 8.5-10.1 [facility] Comment on above: Performed By: #### L 500.2500, L100.0100 ####[facility] [address] [place], [address] Chloride [Moles/Vol] 101 mmol/L Normal 98-107 [facility] Comment on above: Performed By: #### L 500.2500, L100.0100 ####[facility] [address] [place], [address] CO2 [Moles/Vol] 29.0 mmol/L Normal 21.0-32.0 [facility] Comment on above: Performed By: #### L 500.2500, L100.0100 ####[facility] [address] [place], [address] Creatinine [Mass/Vol] 0.54 mg/dL Low 0.55-1.02 [facility] Comment on above: Result Comment: The validity of the calculated GFR GFRAA in patients over70 years has not been determined. Clinical correlation isessential. Performed By: #### L 500.2500, L100.0100 ####[facility] [address] [place], [address] ECRCL 62.51 ml/min Normal [facility] Comment on above: Performed By: #### L 500.2500, L100.0100 ####[facility] [address] [place], [address] EST GFR - AA 139 mL/min Normal >60 [facility] Comment on above: Result Comment: Afri can Tristanian GFR Calc Performed By: #### L 500.2500, L100.0100 ####[facility] [address] [place], [address] GAP 5 Normal 5-15 [facility] Comment on above: Performed By: #### L 500.2500, L100.0100 ####[facility] [address] [place], [address] GFR/1.73 sq M.predicted among non-blacks MDRD (S/P/Bld) [Vol rate/Area] 115 mL/min/{1.73_m2} Normal >60 [facility] Comment on above: Result Comment: Non- GFR Calc Performed By: #### L 500.2500, L100.0100 ####[facility] [address] [place], [address] Glucose [Mass/Vol] 165 mg/dL High 74-106 [facility] Comment on above: Result Comment: Fast ing Glucose result greater than or equal to 126 mg/dLsuggests DIABETES MELLITUS per A.D.A. criteria. Performed By: #### L 500.2500, L100.0100 ####[facility] [address] [place], [address] Potassium [Moles/Vol] 4.0 mmol/L Normal 3.5-5.1 [facility] Comment on above: Performed By: #### L 500.2500, L100.0100 ####[facility] [address] [place], [address] Sodium [Moles/Vol] 135 mmol/L Low 136-145 [facility] Comment on above: Performed By: #### L 500.2500, L100.0100 ####[facility] [address] [place], [address] Urea nitrogen [Mass/Vol] 16 mg/dL Normal 7-18 [facility] Comment on above: Performed By: #### L 500.2500, L100.0100 ####[facility] [address] [place], [address] Bedside Glucoseon 01-20-2024 FINGERSTICK GLU 165 mg/dL High 74-106 [facility] Comment on above: Result Comment: JOAO PATRICIOENT OF PATIENT CARE PER NURSING PROTOCOL Performed By: #### L 501.080 ####[facility] [address] [place], [address] CBC W/Diff, Automatedon 12-30 Absolute Lymph 1.51 X10 3/uL Normal 0.83-4.51 [facility] Comment on above: Performed By: #### L 500.2500, L100.0100 ####[facility] [address] [place], [address] Absolute Neut 7.5 X10 3/uL Normal 2.0-7.7 [facility] Comment on above: Performed By: #### L 500.2500, L100.0100 ####[facility] [address] [place], [address] Basophils/100 WBC (Bld) 0.7 % Normal 0-1 [facility] Comment on above: Performed By: #### L 500.2500, L100.0100 ####[facility] [address] [place], [address] Eosinophils/100 WBC (Bld) 3.5 % Normal 0-5 [facility] Comment on above: Performed By: #### L 500.2500, L100.0100 ####[facility] [address] [place], [address] Erythrocyte distribution width (RBC) [Ratio] 15.2 % High 11.6-14.6 [facility] Comment on above: Performed By: #### L 500.2500, L100.0100 ####[facility] [address] [place], [address] Hematocrit (Bld) [Volume fraction] 28.8 % Low 37-47 [facility] Comment on above: Performed By: #### L 500.2500, L100.0100 ####[facility] [address] [place], [address] Hemoglobin (Bld) [Mass/Vol] 8.7 g/dL Low 12.0-15.0 [facility] Comment on above: Performed By: #### L 500.2500, L100.0100 ####[facility] [address] [place], [address] IG% 1.100 High 0.0-0.9 [facility] Comment on above: Result Comment: IG% - Immature Granulocytes (promyelocytes, myelocytes andmetamyelocytes) > 1% indicates that a LEFT SHIFT is Present. Performed By: #### L 500.2500, L100.0100 ####[facility] [address] [place], [address] Lymphocytes/100 WBC (Bld) 14.4 % Low 19-41 [facility] Comment on above: Performed By: #### L 500.2500, L100.0100 ####[facility] [address] [place], [address] MCH (RBC) [Entitic mass] 28.5 pg Normal 27.0-32.0 [facility] Comment on above: Performed By: #### L 500.2500, L100.0100 ####[facility] [address] [place], [address] MCHC (RBC) [Mass/Vol] 30.2 g/dL Low 32-36 [facility] Comment on above: Performed By: #### L 500.2500, L100.0100 ####[facility] [address] [place], [address] MCV (RBC) [Entitic vol] 94.4 fL Normal 81-99 [facility] Comment on above: Performed By: #### L 500.2500, L100.0100 ####[facility] [address] [place], [address] Monocytes/100 WBC (Bld) 9.0 % Normal 0-10 [facility] Comment on above: Performed By: #### L 500.2500, L100.0100 ####[facility] [address] [place], [address] Neutrophils/100 WBC (Bld) 71.3 % High 47-70 [facility] Comment on above: Performed By: #### L 500.2500, L100.0100 ####[facility] [address] [place], [address] Nucleated RBC (Bld) [#/Vol] 0 10*3/uL Normal 0-5 [facility] Comment on above: Performed By: #### L 500.2500, L100.0100 ####[facility] [address] [place], [address] Platelet mean volume (Bld) [Entitic vol] 10.2 fL Normal 6.2-12.0 [facility] Comment on above: Performed By: #### L 500.2500, L100.0100 ####[facility] [address] [place], [address] Platelets (Bld) [#/Vol] 490 10*3/uL High 150-450 [facility] Comment on above: Performed By: #### L 500.2500, L100.0100 ####[facility] [address] [place], [address] RBC (Bld) [#/Vol] 3.05 10*6/uL Low 4.2-5.4 [facility] Comment on above: Performed By: #### L 500.2500, L100.0100 ####[facility] [address] [place], [address] RDW SD 51.8 fl High 35.1-43.9 [facility] Comment on above: Performed By: #### L 500.2500, L100.0100 ####[facility] [address] [place], [address] WBC (Bld) [#/Vol] 10.5 10*3/uL Normal 4.4-11.0 [facility] Comment on above: Performed By: #### L 500.2500, L100.0100 ####[facility] [address] [place], [address] COVID 19 AG RAPID [facility] Camelia)on 01-20-2024 SARS-CoV-2 (COVID-19) RNA ANKIT+probe Ql (Unsp spec) Normal [facility] Comment on above: Performed By: #### M 100.505 ####[facility] [address] [place], [address] Urinalysis, Completeon 01-19 BACTERIA 2+ /hpf Normal None Seen [facility] Comment on above: Order Comment: VANITA TER SPECIMEN Performed By: #### L 400.0001 ####[facility] [address] [place], [address] Mucus Ql (Urine sed) 2+ /hpf Normal [facility] Comment on above: Order Comment: VANITA TER SPECIMEN Performed By: #### L 400.0001 ####[facility] [address] [place], [address] RBC 5-10 SEEN Normal 0-5 [facility] Comment on above: Order Comment: VANITA TER SPECIMEN Performed By: #### L 400.0001 ####[facility] [address] [place], [address] WBC >100 SEEN Normal 0-5 [facility] Comment on above: Order Comment: VANITA TER SPECIMEN Performed By: #### L 400.0001 ####[facility] [address] [place], [address] Bedside Glucoseon 01-19-2024 FINGERSTICK GLU 194 mg/dL High 74-106 [facility] Comment on above: Result Comment: JOAO ISRAEL OF PATIENT CARE PER NURSING PROTOCOL Performed By: #### L 501.080 ####[facility] [address] [place], [address] Urinalysis, Completeon 01-18 EPI,SQUAMOUS 0 SEEN Normal 5-10 [facility] Comment on above: Order Comment: VANITA TER SPECIMEN Performed By: #### L 400.0001 ####[facility] [address] [place], [address] Bedside Glucoseon 01-18-2024 FINGERSTICK GLU 159 mg/dL High 74-106 [facility] Comment on above: Result Comment: JOAO GEMENT OF PATIENT CARE PER NURSING PROTOCOL Performed By: #### L 501.080 ####[facility] [address] [place], [address] Bedside Glucoseon 01-17-2024 FINGERSTICK GLU 163 mg/dL High 74-106 [facility] Comment on above: Result Comment: JOAO GEMENT OF PATIENT CARE PER NURSING PROTOCOL Performed By: #### L 501.080 ####[facility] [address] [place], [address] Bedside Glucoseon 01-16-2024 FINGERSTICK GLU 145 mg/dL High 74-106 [facility] Comment on above: Result Comment: JOAO GEMENT OF PATIENT CARE PER NURSING PROTOCOL Performed By: #### L 501.080 ####[facility] [address] [place], [address] HIP, UNI W/ Pelvis 2-3 Views on 01-16-2024 HIP, UNI W/ Pelvis 2-3 Views Normal [facility] Bedside Glucoseon 01-15-2024 FINGERSTICK GLU 151 mg/dL High 74-106 [facility] Comment on above: Result Comment: JOAO GEMENT OF PATIENT CARE PER NURSING PROTOCOL Performed By: #### L 501.080 ####[facility] [address] [place], [address] HH, Hemoglobin AND Hematocri ton 01-15-2024 Hematocrit (Bld) [Volume fraction] 26.0 % Low 37-47 [facility] Comment on above: Performed By: #### L 100.0600 ####[facility] [address] [place], [address] Hemoglobin (Bld) [Mass/Vol] 8.2 g/dL Low 12.0-15.0 [facility] Comment on above: Performed By: #### L 100.0600 ####[facility] [address] [place], [address] Bedside Glucoseon 01-14-2024 FINGERSTICK GLU 172 mg/dL High 74-106 [facility] Comment on above: Result Comment: JOAO ISRAEL OF PATIENT CARE PER NURSING PROTOCOL Performed By: #### L 501.080 ####[facility] [address] [place], [address] CBC-Complete Blood Cnt No Di ffon 01-14-2024 HCT Normal 37-47 [facility] Comment on above: Result Comment: Canc elled via OM: Order cancelled - Patient discharged Performed By: #### L 100.0500 ####[facility] [address] [place], [address] HGB Normal 12.0-15.0 [facility] Comment on above: Result Comment: Canc elled via OM: Order cancelled - Patient discharged Performed By: #### L 100.0500 ####[facility] [address] [place], [address] MCH Normal 27.0-32.0 [facility] Comment on above: Result Comment: Canc elled via OM: Order cancelled - Patient discharged Performed By: #### L 100.0500 ####[facility] [address] [place], [address] MCHC Normal 32-36 [facility] Comment on above: Result Comment: Canc elled via OM: Order cancelled - Patient discharged Performed By: #### L 100.0500 ####[facility] [address] [place], [address] MCV Normal 81-99 [facility] Comment on above: Result Comment: Canc elled via OM: Order cancelled - Patient discharged Performed By: #### L 100.0500 ####[facility] [address] [place], [address] PLT Normal 150-450 [facility] Comment on above: Result Comment: Canc elled via OM: Order cancelled - Patient discharged Performed By: #### L 100.0500 ####[facility] [address] [place], [address] RBC Normal 4.2-5.4 [facility] Comment on above: Result Comment: Canc elled via OM: Order cancelled - Patient discharged Performed By: #### L 100.0500 ####[facility] [address] [place], [address] RDW CV Normal 11.6-14.6 [facility] Comment on above: Result Comment: Canc elled via OM: Order cancelled - Patient discharged Performed By: #### L 100.0500 ####[facility] [address] [place], [address] RDW SD Normal 35.1-43.9 [facility] Comment on above: Result Comment: Canc elled via OM: Order cancelled - Patient discharged Performed By: #### L 100.0500 ####[facility] [address] [place], [address] WBC Normal 4.4-11.0 [facility] Comment on above: Result Comment: Canc elled via OM: Order cancelled - Patient discharged Performed By: #### L 100.0500 ####[facility] [address] [place], [address] HH, Hemoglobin AND Hematocri ton 01-14-2024 Hematocrit (Bld) [Volume fraction] 26.6 % Low 37-47 [facility] Comment on above: Performed By: #### L 100.0600 ####[facility] [address] [place], [address] Hemoglobin (Bld) [Mass/Vol] 8.2 g/dL Low 12.0-15.0 [facility] Comment on above: Performed By: #### L 100.0600 ####[facility] [address] [place], [address] Basic Metabolic Profile (BMP )on 01-13-2024 BUN/CRE 30.9 RATIO High 10-20 [facility] Comment on above: Performed By: #### L 500.2500, L100.0100 ####[facility] [address] [place], [address] CA,Total 8.5 mg/dL Normal 8.5-10.1 [facility] Comment on above: Performed By: #### L 500.2500, L100.0100 ####[facility] [address] [place], [address] Chloride [Moles/Vol] 105 mmol/L Normal 98-107 [facility] Comment on above: Performed By: #### L 500.2500, L100.0100 ####[facility] [address] [place], [address] CO2 [Moles/Vol] 26.0 mmol/L Normal 21.0-32.0 [facility] Comment on above: Performed By: #### L 500.2500, L100.0100 ####[facility] [address] [place], [address] Creatinine [Mass/Vol] 0.84 mg/dL Normal 0.55-1.02 [facility] Comment on above: Result Comment: The validity of the calculated GFR GFRAA in patients over70 years has not been determined. Clinical correlation isessential. Performed By: #### L 500.2500, L100.0100 ####[facility] [address] [place], [address] ECRCL 59.31 ml/min Normal [facility] Comment on above: Performed By: #### L 500.2500, L100.0100 ####[facility] [address] [place], [address] EST GFR - AA 83 mL/min Normal >60 [facility] Comment on above: Result Comment: Afri can Tristanian GFR Calc Performed By: #### L 500.2500, L100.0100 ####[facility] [address] [place], [address] GAP 5 Normal 5-15 [facility] Comment on above: Performed By: #### L 500.2500, L100.0100 ####[facility] [address] [place], [address] GFR/1.73 sq M.predicted among non-blacks MDRD (S/P/Bld) [Vol rate/Area] 69 mL/min/{1.73_m2} Normal >60 [facility] Comment on above: Result Comment: Non- GFR Calc Performed By: #### L 500.2500, L100.0100 ####[facility] [address] [place], [address] Glucose [Mass/Vol] 177 mg/dL High 74-106 [facility] Comment on above: Result Comment: Fast ing Glucose result greater than or equal to 126 mg/dLsuggests DIABETES MELLITUS per A.D.A. criteria. Performed By: #### L 500.2500, L100.0100 ####[facility] [address] [place] [place], [address] Potassium [Moles/Vol] 4.2 mmol/L Normal 3.5-5.1 [facility] Comment on above: Performed By: #### L 500.2500, L100.0100 ####[facility] [address] [place], [address] Sodium [Moles/Vol] 136 mmol/L Normal 136-145 [facility] Comment on above: Performed By: #### L 500.2500, L100.0100 ####[facility] [address] [place], [address] Urea nitrogen [Mass/Vol] 26 mg/dL High 7-18 [facility] Comment on above: Performed By: #### L 500.2500, L100.0100 ####[facility] [address] [place], [address] Bedside Glucoseon 01-13-2024 FINGERSTICK GLU 269 mg/dL High 74-106 [facility] Comment on above: Result Comment: JOAO GEMENT OF PATIENT CARE PER NURSING PROTOCOL Performed By: #### L 501.080 ####[facility] [address] [place], [address] FINGERSTICK GLU 250 mg/dL High 74-106 [facility] Comment on above: Result Comment: JOAO GEMENT OF PATIENT CARE PER NURSING PROTOCOL Performed By: #### L 501.080 ####[facility] [address] [place], [address] FINGERSTICK GLU 153 mg/dL High 74-106 [facility] Comment on above: Result Comment: JOAO GEMENT OF PATIENT CARE PER NURSING PROTOCOL Performed By: #### L 501.080 ####[facility] [address] [place], [address] CBC W/Diff, Automatedon 12-29 PATH REV Reviewed Normal [facility] Comment on above: Result Comment: Neut rophilic leukocytosis.Normocytic anemia.Clinical correlation necessary.Ibrahima Dukes M.D. 01/13/24 AMENDED REPORT 01/13/24 0849 PATH REV previously reported as: September Performed By: #### L 100.0100, L500.2500 ####[facility] [address] [place], [address] Absolute Lymph 1.05 X10 3/uL Normal 0.83-4.51 [facility] Comment on above: Performed By: #### L 500.2500, L100.0100 ####[facility] [address] [place], [address] Absolute Neut 6.4 X10 3/uL Normal 2.0-7.7 [facility] Comment on above: Performed By: #### L 500.2500, L100.0100 ####[facility] [address] [place], [address] Basophils/100 WBC (Bld) 0.7 % Normal 0-1 [facility] Comment on above: Performed By: #### L 500.2500, L100.0100 ####[facility] [address] [place], [address] Eosinophils/100 WBC (Bld) 3.2 % Normal 0-5 [facility] Comment on above: Performed By: #### L 500.2500, L100.0100 ####[facility] [address] [place], [address] Erythrocyte distribution width (RBC) [Ratio] 14.6 % Normal 11.6-14.6 [facility] Comment on above: Performed By: #### L 500.2500, L100.0100 ####[facility] [address] [place], [address] Hematocrit (Bld) [Volume fraction] 27.6 % Low 37-47 [facility] Comment on above: Performed By: #### L 500.2500, L100.0100 ####[facility] [address] [place], [address] Hemoglobin (Bld) [Mass/Vol] 8.7 g/dL Low 12.0-15.0 [facility] Comment on above: Performed By: #### L 500.2500, L100.0100 ####[facility] [address] [place], [address] IG% 0.800 Normal 0.0-0.9 [facility] Comment on above: Result Comment: IG% - Immature Granulocytes (promyelocytes, myelocytes andmetamyelocytes) > 1% indicates that a LEFT SHIFT is Present. Performed By: #### L 500.2500, L100.0100 ####[facility] [address] [place], [address] Lymphocytes/100 WBC (Bld) 11.6 % Low 19-41 [facility] Comment on above: Performed By: #### L 500.2500, L100.0100 ####[facility] [address] [place], [address] MCH (RBC) [Entitic mass] 29.8 pg Normal 27.0-32.0 [facility] Comment on above: Performed By: #### L 500.2500, L100.0100 ####[facility] [address] [place], [address] MCHC (RBC) [Mass/Vol] 31.5 g/dL Low 32-36 [facility] Comment on above: Performed By: #### L 500.2500, L100.0100 ####[facility] [address] [place], [address] MCV (RBC) [Entitic vol] 94.5 fL Normal 81-99 [facility] Comment on above: Performed By: #### L 500.2500, L100.0100 ####[facility] [address] [place], [address] Monocytes/100 WBC (Bld) 13.0 % High 0-10 [facility] Comment on above: Performed By: #### L 500.2500, L100.0100 ####[facility] [address] [place], [address] Neutrophils/100 WBC (Bld) 70.7 % High 47-70 [facility] Comment on above: Performed By: #### L 500.2500, L100.0100 ####[facility] [address] [place], [address] Nucleated RBC (Bld) [#/Vol] 0 10*3/uL Normal 0-5 [facility] Comment on above: Performed By: #### L 500.2500, L100.0100 ####[facility] [address] [place], [address] Platelet mean volume (Bld) [Entitic vol] 10.5 fL Normal 6.2-12.0 [facility] Comment on above: Performed By: #### L 500.2500, L100.0100 ####[facility] [address] [place], [address] Platelets (Bld) [#/Vol] 217 10*3/uL Normal 150-450 [facility] Comment on above: Performed By: #### L 500.2500, L100.0100 ####[facility] [address] [place], [address] RBC (Bld) [#/Vol] 2.92 10*6/uL Low 4.2-5.4 [facility] Comment on above: Performed By: #### L 500.2500, L100.0100 ####[facility] [address] [place], [address] RDW SD 50.4 fl High 35.1-43.9 [facility] Comment on above: Performed By: #### L 500.2500, L100.0100 ####[facility] [address] [place], [address] WBC (Bld) [#/Vol] 9.1 10*3/uL Normal 4.4-11.0 [facility] Comment on above: Performed By: #### L 500.2500, L100.0100 ####[facility] [address] [place], [address] CBC-Complete Blood Cnt No Di ffon 01-13-2024 HCT Normal 37-47 [facility] Comment on above: Result Comment: Canc elled via OM: Order cancelled - Patient discharged Performed By: #### L 100.0500 ####[facility] [address] [place], [address] HGB Normal 12.0-15.0 [facility] Comment on above: Result Comment: Canc elled via OM: Order cancelled - Patient discharged Performed By: #### L 100.0500 ####[facility] [address] [place], [address] MCH Normal 27.0-32.0 [facility] Comment on above: Result Comment: Canc elled via OM: Order cancelled - Patient discharged Performed By: #### L 100.0500 ####[facility] [address] [place], [address] MCHC Normal 32-36 [facility] Comment on above: Result Comment: Canc elled via OM: Order cancelled - Patient discharged Performed By: #### L 100.0500 ####[facility] [address] [place], [address] MCV Normal 81-99 [facility] Comment on above: Result Comment: Canc elled via OM: Order cancelled - Patient discharged Performed By: #### L 100.0500 ####[facility] [address] [place], [address] PLT Normal 150-450 [facility] Comment on above: Result Comment: Canc elled via OM: Order cancelled - Patient discharged Performed By: #### L 100.0500 ####[facility] [address] [place], [address] RBC Normal 4.2-5.4 [facility] Comment on above: Result Comment: Canc elled via OM: Order cancelled - Patient discharged Performed By: #### L 100.0500 ####[facility] [address] [place], [address] RDW CV Normal 11.6-14.6 [facility] Comment on above: Result Comment: Canc elled via OM: Order cancelled - Patient discharged Performed By: #### L 100.0500 ####[facility] [address] [place], [address] RDW SD Normal 35.1-43.9 [facility] Comment on above: Result Comment: Canc elled via OM: Order cancelled - Patient discharged Performed By: #### L 100.0500 ####[facility] [address] [place], [address] WBC Normal 4.4-11.0 [facility] Comment on above: Result Comment: Canc elled via OM: Order cancelled - Patient discharged Performed By: #### L 100.0500 ####[facility] [address] [place], [address] COVID 19 AG RAPID (RN COLLEVargas T)on 01-13-2024 SARS-CoV-2 (COVID-19) RNA ANKIT+probe Ql (Unsp spec) SARS-CoV-2 (COVID 19) Negative RAPID METHOD BinaxNow COVID19 Ag Card Normal [facility] Comment on above: Performed By: #### M 100.505 ####[facility] [address] [place], [address] Basic Metabolic Profile (BMP )on 01-12-2024 BUN/CRE 21.3 RATIO High 10-20 [facility] Comment on above: Performed By: #### L 100.0100, L500.2500 ####[facility] [address] [place], [address] CA,Total 8.0 mg/dL Low 8.5-10.1 [facility] Comment on above: Performed By: #### L 100.0100, L500.2500 ####[facility] [address] [place], [address] Chloride [Moles/Vol] 106 mmol/L Normal 98-107 [facility] Comment on above: Performed By: #### L 100.0100, L500.2500 ####[facility] [address] [place], [address] CO2 [Moles/Vol] 22.0 mmol/L Normal 21.0-32.0 [facility] Comment on above: Performed By: #### L 100.0100, L500.2500 ####[facility] [address] [place], [address] Creatinine [Mass/Vol] 1.36 mg/dL High 0.55-1.02 [facility] Comment on above: Result Comment: The validity of the calculated GFR GFRAA in patients over70 years has not been determined. Clinical correlation isessential. Performed By: #### L 100.0100, L500.2500 ####[facility] [address] [place], [address] ECRCL 36.54 ml/min Normal [facility] Comment on above: Performed By: #### L 100.0100, L500.2500 ####[facility] [address] [place], [address] EST GFR - AA 48 mL/min Low >60 [facility] Comment on above: Result Comment: Afri can Tristanian GFR Calc Performed By: #### L 100.0100, L500.2500 ####[facility] [address] [place], [address] GAP 8 Normal 5-15 [facility] Comment on above: Performed By: #### L 100.0100, L500.2500 ####[facility] [address] [place], [address] GFR/1.73 sq M.predicted among non-blacks MDRD (S/P/Bld) [Vol rate/Area] 40 mL/min/{1.73_m2} Low >60 [facility] Comment on above: Result Comment: Non- GFR Calc Performed By: #### L 100.0100, L500.2500 ####[facility] [address] [place], [address] Glucose [Mass/Vol] 191 mg/dL High 74-106 [facility] Comment on above: Result Comment: Fast ing Glucose result greater than or equal to 126 mg/dLsuggests DIABETES MELLITUS per A.D.A. criteria. Performed By: #### L 100.0100, L500.2500 ####[facility] [address] [place], [address] Potassium [Moles/Vol] 4.2 mmol/L Normal 3.5-5.1 [facility] Comment on above: Performed By: #### L 100.0100, L500.2500 ####[facility] [address] [place], [address] Sodium [Moles/Vol] 136 mmol/L Normal 136-145 [facility] Comment on above: Performed By: #### L 100.0100, L500.2500 ####[facility] [address] [place], [address] Urea nitrogen [Mass/Vol] 29 mg/dL High 7-18 [facility] Comment on above: Performed By: #### L 100.0100, L500.2500 ####[facility] [address] [place], [address] Bedside Glucoseon 01-12-2024 FINGERSTICK GLU 204 mg/dL High 74-106 [facility] Comment on above: Result Comment: JOAO ISRAEL OF PATIENT CARE PER NURSING PROTOCOL Performed By: #### L 501.080 ####[facility] [address] [place], [address] FINGERSTICK GLU 179 mg/dL High 74-106 [facility] Comment on above: Result Comment: JOAO GEMENT OF PATIENT CARE PER NURSING PROTOCOL Performed By: #### L 501.080 ####[facility] [address] [place], [address] FINGERSTICK GLU 174 mg/dL High 74-106 [facility] Comment on above: Result Comment: JOAO GEMENT OF PATIENT CARE PER NURSING PROTOCOL Performed By: #### L 501.080 ####[facility] [address] [place], [address] Basic Metabolic Profile (BMP )on 01-11-2024 BUN Normal 7-18 [facility] Comment on above: Result Comment: OVER LAPPING TESTS- CMP ORDERED FOR MORNING RUN Performed By: #### L 500.2500 ####[facility] [address] [place], [address] BUN/CRE Normal 10-20 [facility] Comment on above: Result Comment: OVER LAPPING TESTS- CMP ORDERED FOR MORNING RUN Performed By: #### L 500.2500 ####[facility] [address] [place], [address] CA,Total Normal 8.5-10.1 [facility] Comment on above: Result Comment: OVER LAPPING TESTS- CMP ORDERED FOR MORNING RUN Performed By: #### L 500.2500 ####[facility] [address] [place], [address] CL Normal 98-107 [facility] Comment on above: Result Comment: OVER LAPPING TESTS- CMP ORDERED FOR MORNING RUN Performed By: #### L 500.2500 ####[facility] [address] [place], [address] CO2 Normal 21.0-32.0 [facility] Comment on above: Result Comment: OVER LAPPING TESTS- CMP ORDERED FOR MORNING RUN Performed By: #### L 500.2500 ####[facility] [address] [place], [address] CREAT,SERUM Normal 0.55-1.02 [facility] Comment on above: Result Comment: OVER LAPPING TESTS- CMP ORDERED FOR MORNING RUN Performed By: #### L 500.2500 ####[facility] [address] [place], [address] EST GFR Normal >60 [facility] Comment on above: Result Comment: OVER LAPPING TESTS- CMP ORDERED FOR MORNING RUN Performed By: #### L 500.2500 ####[facility] [address] [place], [address] EST GFR - AA Normal >60 [facility] Comment on above: Result Comment: OVER LAPPING TESTS- CMP ORDERED FOR MORNING RUN Performed By: #### L 500.2500 ####[facility] [address] [place], [address] GAP Normal 5-15 [facility] Comment on above: Result Comment: OVER LAPPING TESTS- CMP ORDERED FOR MORNING RUN Performed By: #### L 500.2500 ####[facility] [address] [place], [address] GLU Normal 74-106 [facility] Comment on above: Result Comment: OVER LAPPING TESTS- CMP ORDERED FOR MORNING RUN Performed By: #### L 500.2500 ####[facility] [address] [place], [address] Potassium Normal 3.5-5.1 [facility] Comment on above: Result Comment: OVER LAPPING TESTS- CMP ORDERED FOR MORNING RUN Performed By: #### L 500.2500 ####[facility] [address] [place], [address] Basic Metabolic Profile (BMP) Normal 136-145 [facility] Comment on above: Result Comment: OVER LAPPING TESTS- CMP ORDERED FOR MORNING RUN Performed By: #### L 500.2500 ####[facility] [address] [place], [address] Bedside Glucoseon 01-11-2024 FINGERSTICK GLU 231 mg/dL High 74-106 [facility] Comment on above: Result Comment: JOAO GEMENT OF PATIENT CARE PER NURSING PROTOCOL Performed By: #### L 501.080 ####[facility] [address] [place], [address] FINGERSTICK GLU 154 mg/dL High 74-106 [facility] Comment on above: Result Comment: JOAO GEMENT OF PATIENT CARE PER NURSING PROTOCOL Performed By: #### L 501.080 ####[facility] [address] [place], [address] FINGERSTICK GLU 181 mg/dL High 74-106 [facility] Comment on above: Result Comment: JOAO GEMENT OF PATIENT CARE PER NURSING PROTOCOL Performed By: #### L 501.080 ####[facility] [address] [place], [address] CBC W/Diff, Automatedon 12-29 Absolute Lymph 1.25 X10 3/uL Normal 0.83-4.51 [facility] Comment on above: Performed By: #### L 100.0100, L501.9520, L500.4050, L501.2300, L501.5200 ####[facility] [address] [place], [address] Absolute Neut 10.9 X10 3/uL High 2.0-7.7 [facility] Comment on above: Performed By: #### L 100.0100, L501.9520, L500.4050, L501.2300, L501.5200 ####[facility] [address] [place], [address] Basophils/100 WBC (Bld) 0.5 % Normal 0-1 [facility] Comment on above: Performed By: #### L 100.0100, L501.9520, L500.4050, L501.2300, L501.5200 ####[facility] [address] [place], [address] Eosinophils/100 WBC (Bld) 0.1 % Normal 0-5 [facility] Comment on above: Performed By: #### L 100.0100, L501.9520, L500.4050, L501.2300, L501.5200 ####[facility] [address] [place], [address] Erythrocyte distribution width (RBC) [Ratio] 14.5 % Normal 11.6-14.6 [facility] Comment on above: Performed By: #### L 100.0100, L501.9520, L500.4050, L501.2300, L501.5200 ####[facility] [address] [place], [address] Hematocrit (Bld) [Volume fraction] 37.0 % Normal 37-47 [facility] Comment on above: Performed By: #### L 100.0100, L501.9520, L500.4050, L501.2300, L501.5200 ####[facility] [address] [place], [address] Hemoglobin (Bld) [Mass/Vol] 11.7 g/dL Low 12.0-15.0 [facility] Comment on above: Performed By: #### L 100.0100, L501.9520, L500.4050, L501.2300, L501.5200 ####[facility] [address] [place], [address] IG% 0.700 Normal 0.0-0.9 [facility] Comment on above: Result Comment: IG% - Immature Granulocytes (promyelocytes, myelocytes andmetamyelocytes) > 1% indicates that a LEFT SHIFT is Present. Performed By: #### L 100.0100, L501.9520, L500.4050, L501.2300, L501.5200 ####[facility] [address] [place], [address] Lymphocytes/100 WBC (Bld) 9.3 % Low 19-41 [facility] Comment on above: Performed By: #### L 100.0100, L501.9520, L500.4050, L501.2300, L501.5200 ####[facility] [address] [place], [address] MCH (RBC) [Entitic mass] 29.2 pg Normal 27.0-32.0 [facility] Comment on above: Performed By: #### L 100.0100, L501.9520, L500.4050, L501.2300, L501.5200 ####[facility] [address] [place], [address] MCHC (RBC) [Mass/Vol] 31.6 g/dL Low 32-36 [facility] Comment on above: Performed By: #### L 100.0100, L501.9520, L500.4050, L501.2300, L501.5200 ####[facility] [address] [place], [address] MCV (RBC) [Entitic vol] 92.3 fL Normal 81-99 [facility] Comment on above: Performed By: #### L 100.0100, L501.9520, L500.4050, L501.2300, L501.5200 ####[facility] [address] [place], [address] Monocytes/100 WBC (Bld) 8.5 % Normal 0-10 [facility] Comment on above: Performed By: #### L 100.0100, L501.9520, L500.4050, L501.2300, L501.5200 ####[facility] [address] [place], [address] Neutrophils/100 WBC (Bld) 80.9 % High 47-70 [facility] Comment on above: Performed By: #### L 100.0100, L501.9520, L500.4050, L501.2300, L501.5200 ####[facility] [address] [place], [address] Nucleated RBC (Bld) [#/Vol] 0 10*3/uL Normal 0-5 [facility] Comment on above: Performed By: #### L 100.0100, L501.9520, L500.4050, L501.2300, L501.5200 ####[facility] [address] [place], [address] Platelet mean volume (Bld) [Entitic vol] 11.4 fL Normal 6.2-12.0 [facility] Comment on above: Performed By: #### L 100.0100, L501.9520, L500.4050, L501.2300, L501.5200 ####[facility] [address] [place], [address] Platelets (Bld) [#/Vol] 289 10*3/uL Normal 150-450 [facility] Comment on above: Performed By: #### L 100.0100, L501.9520, L500.4050, L501.2300, L501.5200 ####[facility] [address] [place], [address] RBC (Bld) [#/Vol] 4.01 10*6/uL Low 4.2-5.4 [facility] Comment on above: Performed By: #### L 100.0100, L501.9520, L500.4050, L501.2300, L501.5200 ####[facility] [address] [place], [address] RDW SD 48.6 fl High 35.1-43.9 [facility] Comment on above: Performed By: #### L 100.0100, L501.9520, L500.4050, L501.2300, L501.5200 ####[facility] [address] [place], [address] WBC (Bld) [#/Vol] 13.5 10*3/uL High 4.4-11.0 [facility] Comment on above: Performed By: #### L 100.0100, L501.9520, L500.4050, L501.2300, L501.5200 ####[facility] [address] [place], [address] Comprehensive Metabolic Prof ilon 01-11-2024 Albumin [Mass/Vol] 2.7 g/dL Low 3.2-5.0 [facility] Comment on above: Performed By: #### L 100.0100, L501.9520, L500.4050, L501.2300, L501.5200 ####[facility] [address] [place], [address] Albumin/Globulin [Mass ratio] 0.6 {ratio} Low 0.9-2.4 [facility] Comment on above: Performed By: #### L 100.0100, L501.9520, L500.4050, L501.2300, L501.5200 ####[facility] [address] [place], [address] ALK P 123 U/L High 45-117 [facility] Comment on above: Performed By: #### L 100.0100, L501.9520, L500.4050, L501.2300, L501.5200 ####[facility] [address] [place], [address] ALT [Catalytic activity/Vol] 14 U/L Normal 13-56 [facility] Comment on above: Performed By: #### L 100.0100, L501.9520, L500.4050, L501.2300, L501.5200 ####[facility] [address] [place], [address] AST [Catalytic activity/Vol] 11 U/L Low 15-37 [facility] Comment on above: Performed By: #### L 100.0100, L501.9520, L500.4050, L501.2300, L501.5200 ####[facility] [address] [place], [address] Bilirubin [Mass/Vol] 0.40 mg/dL Normal 0.20-1.00 [facility] Comment on above: Result Comment: For patients on eltrombopag therapy, use of Dimension [place] TBIL is not recommended. Performed By: #### L 100.0100, L501.9520, L500.4050, L501.2300, L501.5200 ####[facility] [address] [place], [address] BUN/CRE 29.8 RATIO High 10-20 [facility] Comment on above: Performed By: #### L 100.0100, L501.9520, L500.4050, L501.2300, L501.5200 ####[facility] [address] [place], [address] CA,Total 8.9 mg/dL Normal 8.5-10.1 [facility] Comment on above: Performed By: #### L 100.0100, L501.9520, L500.4050, L501.2300, L501.5200 ####[facility] [address] [place], [address] Chloride [Moles/Vol] 107 mmol/L Normal 98-107 [facility] Comment on above: Performed By: #### L 100.0100, L501.9520, L500.4050, L501.2300, L501.5200 ####[facility] [address] [place], [address] CO2 [Moles/Vol] 23.0 mmol/L Normal 21.0-32.0 [facility] Comment on above: Performed By: #### L 100.0100, L501.9520, L500.4050, L501.2300, L501.5200 ####[facility] [address] [place], [address] Creatinine [Mass/Vol] 0.80 mg/dL Normal 0.55-1.02 [facility] Comment on above: Result Comment: The validity of the calculated GFR GFRAA in patients over70 years has not been determined. Clinical correlation isessential. Performed By: #### L 100.0100, L501.9520, L500.4050, L501.2300, L501.5200 ####[facility] [address] [place], [address] ECRCL 61.73 ml/min Normal [facility] Comment on above: Performed By: #### L 100.0100, L501.9520, L500.4050, L501.2300, L501.5200 ####[facility] [address] [place], [address] EST GFR - AA 88 mL/min Normal >60 [facility] Comment on above: Result Comment: Afri can Tristanian GFR Calc Performed By: #### L 100.0100, L501.9520, L500.4050, L501.2300, L501.5200 ####[facility] [address] [place], [address] GAP 7 Normal 5-15 [facility] Comment on above: Performed By: #### L 100.0100, L501.9520, L500.4050, L501.2300, L501.5200 ####[facility] [address] [place], [address] GFR/1.73 sq M.predicted among non-blacks MDRD (S/P/Bld) [Vol rate/Area] 73 mL/min/{1.73_m2} Normal >60 [facility] Comment on above: Result Comment: Non- GFR Calc Performed By: #### L 100.0100, L501.9520, L500.4050, L501.2300, L501.5200 ####[facility] [address] [place], [address] Globulin (S) [Mass/Vol] 4.2 g/dL Normal 2.2-4.2 [facility] Comment on above: Performed By: #### L 100.0100, L501.9520, L500.4050, L501.2300, L501.5200 ####[facility] [address] [place], [address] Glucose [Mass/Vol] 198 mg/dL High 74-106 [facility] Comment on above: Result Comment: Fast ing Glucose result greater than or equal to 126 mg/dLsuggests DIABETES MELLITUS per A.D.A. criteria. Performed By: #### L 100.0100, L501.9520, L500.4050, L501.2300, L501.5200 ####[facility] [address] [place], [address] Potassium [Moles/Vol] 3.8 mmol/L Normal 3.5-5.1 [facility] Comment on above: Performed By: #### L 100.0100, L501.9520, L500.4050, L501.2300, L501.5200 ####[facility] [address] [place], [address] Sodium [Moles/Vol] 137 mmol/L Normal 136-145 [facility] Comment on above: Performed By: #### L 100.0100, L501.9520, L500.4050, L501.2300, L501.5200 ####[facility] [address] [place], [place], [address] T PROT 6.9 g/dL Normal 6.4-8.2 [facility] Comment on above: Performed By: #### L 100.0100, L501.9520, L500.4050, L501.2300, L501.5200 ####[facility] [address] [place], [address] Urea nitrogen [Mass/Vol] 24 mg/dL High 7-18 [facility] Comment on above: Performed By: #### L 100.0100, L501.9520, L500.4050, L501.2300, L501.5200 ####[facility] [address] [place], [place], [id number] Consultation - Orthopedicson 01-11-2024 Consultation - Orthopedics Normal [facility] Hemoglobin A1con 01-11-2024 HbA1c (Bld) [Mass fraction] 7.0 % High 3.8-5.6 [facility] Comment on above: Result Comment: Norm al < 5.7 % Prediabetic 5.7 - 6.4 % Diabetic >or= 6.5 % Please note range changes. Performed By: #### L 501.9985 ####[facility] [address] [place], [address] Hip Min 2 Views (Portable)on 01-11-2024 Hip Min 2 Views (Portable) Normal [facility] MR/POSTOP.ANEon 01-11-2024 MR/POSTOP.ANE Normal [facility] MR/[id number] 01-11-2024 MR/POSTOPAN2 Normal [facility] Magnesiumon 01-11-2024 Magnesium [Mass/Vol] 2.1 mg/dL Normal 1.6-2.6 [facility] Comment on above: Performed By: #### L 100.0100, L501.9520, L500.4050, L501.2300, L501.5200 ####[facility] [address] [place], [address] Operative Reporton Operative Report Normal [facility] Phosphoruson 01-11-2024 Phosphate [Mass/Vol] 3.8 mg/dL Normal 2.5-4.9 [facility] Comment on above: Performed By: #### L 100.0100, L501.9520, L500.4050, L501.2300, L501.5200 ####[facility] [address] [place], [address] Thyroid Stim Hormone (TSH)on 01-11-2024 TSH 1.34 uIU/mL Normal 0.358-3.74 [facility] Comment on above: Performed By: #### L 100.0100, L501.9520, L500.4050, L501.2300, L501.5200 ####[facility] [address] [place], [address] Type AND Screenon 01-11-2024 Ab SCREEN GEL Negative Normal [facility] Comment on above: Order Comment: REDRA W. PREVIOUS SPECIMEN REJECTED DUE TOMISLABELED. 01/11/24 [id number] HIP Performed By: #### B TS ####[facility] [address] [place], [address] ABO and Rh group Nom (Bld) Blood group O Rh(D) positive Normal [facility] Comment on above: Order Comment: REDRA W. PREVIOUS SPECIMEN REJECTED DUE TOMISLABELED. 01/11/24 [id number] HIP Performed By: #### B TS ####[facility] [address] [place], [address] ANTI A Not performed Normal [facility] Comment on above: Order Comment: GET @ [...] DUETO MISPELLING. Performed By: #### B TS ####[facility] [address] [place], [address] ANTI B Not performed Normal [facility] Comment on above: Order Comment: GET @ BACK TO ME. ALSO PER RN, SURGEON HAS NOT SEEN PT YET SOT S @NOT URGENT AT THIS TIME. 71501/11/24 [facility] Result Comment: NAME DISCREPANCY. PATIENT STATES THERE IS AN E ON THE END OFHER FIRST NAME. DOCUMENTS SHOW BOTH ACCORDING TO ISMEAL(SILVER).REGISTRATION GOING BY DRIVERS LICENSE. PT TO BE REDRAWN DUETO MISPELLING. Performed By: #### B TS ####[facility] [address] [place], [address] ANTI D Not performed Normal [facility] Comment on above: Order Comment: GET @ [...] DUETO MISPELLING. Performed By: #### B TS ####[facility] [address] [place], [address] BLD TYPE RECHEK Not performed Normal [facility] Comment on above: Order Comment: GET @ [...] DUETO MISPELLING. Performed By: #### B TS ####[facility] [address] [place], [address] A1 CELL Not performed Normal [facility] Comment on above: Order Comment: GET @ [...] DUETO MISPELLING. Performed By: #### B TS ####[facility] [address] [place], [address] Ab SCREEN GEL Not performed Normal [facility] Comment on above: Order Comment: GET @ [...] DUETO MISPELLING. Performed By: #### B TS ####[facility] [address] [place], [address] ABO and Rh group Nom (Bld) Test Not Performed Normal [facility] Comment on above: Order Comment: GET @ [...] DUETO MISPELLING. Performed By: #### B TS ####[facility] [address] [place], [address] ANTI A Not performed Normal [facility] Comment on above: Order Comment: GET @ [...] DUETO MISPELLING. Performed By: #### B TS ####[facility] [address] [place], [address] ANTI B Not performed Normal [facility] Comment on above: Order Comment: GET @ [...] DUETO MISPELLING. Performed By: #### B TS ####[facility] [address] [place], [address] ANTI D Not performed Normal [facility] Comment on above: Order Comment: GET @ [...] DUETO MISPELLING. Performed By: #### B TS ####[facility] [address] [place], [address] B CELLS Not performed Normal [facility] Comment on above: Order Comment: GET @ [...] DUETO MISPELLING. Performed By: #### B TS ####[facility] [address] [place], [address] 12 Lead EKGon 01-10-2024 12 Lead EKG Normal [facility] CBC W/Diff, Automatedon 12-29 Absolute Lymph 1.56 X10 3/uL Normal 0.83-4.51 [facility] Comment on above: Performed By: #### L 300.3900, L500.4050, L300.4310, L100.0100 ####[facility] [address] [place], [address] Absolute Neut 7.5 X10 3/uL Normal 2.0-7.7 [facility] Comment on above: Performed By: #### L 300.3900, L500.4050, L300.4310, L100.0100 ####[facility] [address] [place], [address] Basophils/100 WBC (Bld) 0.7 % Normal 0-1 [facility] Comment on above: Performed By: #### L 300.3900, L500.4050, L300.4310, L100.0100 ####[facility] [address] [place], [address] Eosinophils/100 WBC (Bld) 1.7 % Normal 0-5 [facility] Comment on above: Performed By: #### L 300.3900, L500.4050, L300.4310, L100.0100 ####[facility] [address] [place], [address] Erythrocyte distribution width (RBC) [Ratio] 14.5 % Normal 11.6-14.6 [facility] Comment on above: Performed By: #### L 300.3900, L500.4050, L300.4310, L100.0100 ####[facility] [address] [place], [address] Hematocrit (Bld) [Volume fraction] 40.8 % Normal 37-47 [facility] Comment on above: Performed By: #### L 300.3900, L500.4050, L300.4310, L100.0100 ####[facility] [address] [place], [address] Hemoglobin (Bld) [Mass/Vol] 13.0 g/dL Normal 12.0-15.0 [facility] Comment on above: Performed By: #### L 300.3900, L500.4050, L300.4310, L100.0100 ####[facility] [address] [place], [address] IG% 0.700 Normal 0.0-0.9 [facility] Comment on above: Result Comment: IG% - Immature Granulocytes (promyelocytes, myelocytes andmetamyelocytes) > 1% indicates that a LEFT SHIFT is Present. Performed By: #### L 300.3900, L500.4050, L300.4310, L100.0100 ####[facility] [address] [place], [address] Lymphocytes/100 WBC (Bld) 15.1 % Low 19-41 [facility] Comment on above: Performed By: #### L 300.3900, L500.4050, L300.4310, L100.0100 ####[facility] [address] [place], [address] MCH (RBC) [Entitic mass] 28.8 pg Normal 27.0-32.0 [facility] Comment on above: Performed By: #### L 300.3900, L500.4050, L300.4310, L100.0100 ####[facility] [address] [place], [address] MCHC (RBC) [Mass/Vol] 31.9 g/dL Low 32-36 [facility] Comment on above: Performed By: #### L 300.3900, L500.4050, L300.4310, L100.0100 ####[facility] [address] [place], [address] MCV (RBC) [Entitic vol] 90.5 fL Normal 81-99 [facility] Comment on above: Performed By: #### L 300.3900, L500.4050, L300.4310, L100.0100 ####[facility] [address] [place], [address] Monocytes/100 WBC (Bld) 9.3 % Normal 0-10 [facility] Comment on above: Performed By: #### L 300.3900, L500.4050, L300.4310, L100.0100 ####[facility] [address] [place], [address] Neutrophils/100 WBC (Bld) 72.5 % High 47-70 [facility] Comment on above: Performed By: #### L 300.3900, L500.4050, L300.4310, L100.0100 ####[facility] [address] [place], [address] Nucleated RBC (Bld) [#/Vol] 0 10*3/uL Normal 0-5 [facility] Comment on above: Performed By: #### L 300.3900, L500.4050, L300.4310, L100.0100 ####[facility] [address] [place], [address] Platelet mean volume (Bld) [Entitic vol] 10.8 fL Normal 6.2-12.0 [facility] Comment on above: Performed By: #### L 300.3900, L500.4050, L300.4310, L100.0100 ####[facility] [address] [place], [address] Platelets (Bld) [#/Vol] 322 10*3/uL Normal 150-450 [facility] Comment on above: Performed By: #### L 300.3900, L500.4050, L300.4310, L100.0100 ####[facility] [address] [place], [address] RBC (Bld) [#/Vol] 4.51 10*6/uL Normal 4.2-5.4 [facility] Comment on above: Performed By: #### L 300.3900, L500.4050, L300.4310, L100.0100 ####[facility] [address] [place], [address] RDW SD 47.7 fl High 35.1-43.9 [facility] Comment on above: Performed By: #### L 300.3900, L500.4050, L300.4310, L100.0100 ####[facility] [address] [place], [address] WBC (Bld) [#/Vol] 10.4 10*3/uL Normal 4.4-11.0 [facility] Comment on above: Performed By: #### L 300.3900, L500.4050, L300.4310, L100.0100 ####[facility] [address] [place], [address] Chest 1 View (Portable)on Chest 1 View (Portable) Normal [facility] Comprehensive Metabolic Prof ilon 01-10-2024 Albumin [Mass/Vol] 3.0 g/dL Low 3.2-5.0 [facility] Comment on above: Performed By: #### L 300.3900, L500.4050, L300.4310, L100.0100 ####[facility] [address] [place], [address] Albumin/Globulin [Mass ratio] 0.7 {ratio} Low 0.9-2.4 [facility] Comment on above: Performed By: #### L 300.3900, L500.4050, L300.4310, L100.0100 ####[facility] [address] [place], [address] ALK P 130 U/L High 45-117 [facility] Comment on above: Performed By: #### L 300.3900, L500.4050, L300.4310, L100.0100 ####[facility] [address] [place], [address] ALT [Catalytic activity/Vol] 18 U/L Normal 13-56 [facility] Comment on above: Performed By: #### L 300.3900, L500.4050, L300.4310, L100.0100 ####[facility] [address] [place], [address] AST [Catalytic activity/Vol] 13 U/L Low 15-37 [facility] Comment on above: Performed By: #### L 300.3900, L500.4050, L300.4310, L100.0100 ####[facility] [address] [place], [address] Bilirubin [Mass/Vol] 0.30 mg/dL Normal 0.20-1.00 [facility] Comment on above: Result Comment: For patients on eltrombopag therapy, use of Dimension [place] TBIL is not recommended. Performed By: #### L 300.3900, L500.4050, L300.4310, L100.0100 ####[facility] [address] [place], [address] BUN/CRE 36.1 RATIO High 10-20 [facility] Comment on above: Performed By: #### L 300.3900, L500.4050, L300.4310, L100.0100 ####[facility] [address] [place], [address] CA,Total 9.1 mg/dL Normal 8.5-10.1 [facility] Comment on above: Performed By: #### L 300.3900, L500.4050, L300.4310, L100.0100 ####[facility] [address] [place], [address] Chloride [Moles/Vol] 105 mmol/L Normal 98-107 [facility] Comment on above: Performed By: #### L 300.3900, L500.4050, L300.4310, L100.0100 ####[facility] [address] [place], [address] CO2 [Moles/Vol] 25.0 mmol/L Normal 21.0-32.0 [facility] Comment on above: Performed By: #### L 300.3900, L500.4050, L300.4310, L100.0100 ####[facility] [address] [place], [address] Creatinine [Mass/Vol] 0.64 mg/dL Normal 0.55-1.02 [facility] Comment on above: Result Comment: The validity of the calculated GFR GFRAA in patients over70 years has not been determined. Clinical correlation isessential. Performed By: #### L 300.3900, L500.4050, L300.4310, L100.0100 ####[facility] [address] [place], [address] ECRCL 62.57 ml/min Normal [facility] Comment on above: Performed By: #### L 300.3900, L500.4050, L300.4310, L100.0100 ####[facility] [address] [place], [address] EST GFR - AA 115 mL/min Normal >60 [facility] Comment on above: Result Comment: Afri can Tristanian GFR Calc Performed By: #### L 300.3900, L500.4050, L300.4310, L100.0100 ####[facility] [address] [place], [address] GAP 5 Normal 5-15 [facility] Comment on above: Performed By: #### L 300.3900, L500.4050, L300.4310, L100.0100 ####[facility] [address] [place], [address] GFR/1.73 sq M.predicted among non-blacks MDRD (S/P/Bld) [Vol rate/Area] 95 mL/min/{1.73_m2} Normal >60 [facility] Comment on above: Result Comment: Non- GFR Calc Performed By: #### L 300.3900, L500.4050, L300.4310, L100.0100 ####[facility] [address] [place], [address] Globulin (S) [Mass/Vol] 4.5 g/dL High 2.2-4.2 [facility] Comment on above: Performed By: #### L 300.3900, L500.4050, L300.4310, L100.0100 ####[facility] [address] [place], [address] Glucose [Mass/Vol] 168 mg/dL High 74-106 [facility] Comment on above: Result Comment: Fast ing Glucose result greater than or equal to 126 mg/dLsuggests DIABETES MELLITUS per A.D.A. criteria. Performed By: #### L 300.3900, L500.4050, L300.4310, L100.0100 ####[facility] [address] [place], [address] Potassium [Moles/Vol] 3.7 mmol/L Normal 3.5-5.1 [facility] Comment on above: Performed By: #### L 300.3900, L500.4050, L300.4310, L100.0100 ####[facility] [address] [place], [address] Sodium [Moles/Vol] 135 mmol/L Low 136-145 [facility] Comment on above: Performed By: #### L 300.3900, L500.4050, L300.4310, L100.0100 ####[facility] [address] [place], [address] T PROT 7.5 g/dL Normal 6.4-8.2 [facility] Comment on above: Performed By: #### L 300.3900, L500.4050, L300.4310, L100.0100 ####[facility] [address] [place], [address] Urea nitrogen [Mass/Vol] 23 mg/dL High 7-18 [facility] Comment on above: Performed By: #### L 300.3900, L500.4050, L300.4310, L100.0100 ####[facility] [facility] [id number] [place], [address] Emergency Department Summary on 01-10-2024 Emergency Department Summary Normal [facility] H AND P Exam - Hospitaliston 01-10-2024 H&P Exam - Hospitalist Normal [facility] HIP, UNI W/ Pelvis 2-3 Views on 01-10-2024 HIP, UNI W/ Pelvis 2-3 Views Normal [facility] Partial Thromboplast Timeon 01-10-2024 aPTT Coag (Bld) [Time] 29.9 s Normal 24.1-36.2 [facility] Comment on above: Performed By: #### L 300.3900, L500.4050, L300.4310, L100.0100 ####[facility] [address] [place], [address] Prothrombin Time w/INRon INR Coag (PPP) [Relative time] 1.3 {INR} Normal [facility] Comment on above: Performed By: #### L 300.3900, L500.4050, L300.4310, L100.0100 ####[facility] [address] [place], [address] PT Coag (PPP) [Time] 15.9 s High 11.7-14.9 [facility] Comment on above: Performed By: #### L 300.3900, [id number], L300.4310, L100.0100 ####[facility] [address] [place], [place], [id number] ABSCESS AND WOUND CULTURE WI TH GRAM STAINon 08-02-2023 Bacteria identified Cx Nom (Wound) Few Pseudomonas aeruginosa Abnormal [facility] Bacteria identified Cx Nom (Wound) Few Escherichia coli Abnormal [facility] Bacteria identified Cx Nom (Wound) Few skin kj [facility] Bacteria identified Cx Nom ( Wound)on 08-02-2023 Microscopic observation Smear Nom (Unsp spec) Negative Abnormal [facility] Microscopic observation Smear Nom (Unsp spec) Positive Abnormal [facility] Microscopic observation Smear Nom (Unsp spec) No Polymorphonuclear Leukocytes Abnormal [facility] FUNGAL SCREENon 08-01-2023 Fungus identified Cx Nom (Unsp spec) Rare Damian glabrata Abnormal [facility] ABSCESS AND WOUND CULTURE WI TH GRAM STAINon 07-29-2023 Bacteria identified Cx Nom (Wound) Invalid Interpretation Code [facility] DBT Breast - right diagnosti c for implanton 07-21-2023 [facility] Absolute lymphocyte countOrd ered By: Kerwin Kumar on 06-12-2023 Lymphocytes Auto (Unsp spec) [#/Vol] 0.80 10*3/uL 0.83-4.51 [facility] Basophil percentageOrdered B y: Kerwin Kumar on 06-12-2023 Basophil percentage 0-5 SEEN /hpf 0-5 [facility] Basophils/100 WBC (Bld) 0.4 % 0-1 [facility] Chloride [Moles/Vol] 99 mmol/L 98-107 [facility] Eosinophils/100 WBC (Bld) 0.0 % 0-5 [facility] Glucose [Mass/Vol] 268 mg/dL 74-106 [facility] Comment on above: Glucose result great er than or equal to 200 mg/dLsuggests DIABETES MELLITUS per A.D.A. criteria. Neutrophils (Bld) [#/Vol] 13.7 10*3/uL 2.0-7.7 [facility] Neutrophils/100 WBC (Bld) 86.2 % 47-70 [facility] Potassium [Moles/Vol] 3.8 mmol/L 3.5-5.1 [facility] Sodium [Moles/Vol] 132 mmol/L 136-145 [facility] WBC (Bld) [#/Vol] 15.9 10*3/uL 4.4-11.0 [facility] Bilirubin Test strip Ql (U)O rdered By: Kerwin Kumar on 06-12-2023 Bilirubin Ql (U) Negative Negative [facility] Blood erythrocytes count (nu mber/volume)Ordered By: Kerwin Kumar on 06-12-2023 RBC (Bld) [#/Vol] 4.54 10*6/uL 4.2-5.4 [facility] Blood hemoglobin measurement (mass/volume)Ordered By: Kerwin Kumar on 06-12-2023 Hemoglobin (Bld) [Mass/Vol] 12.8 g/dL 12.0-15.0 [facility] Blood lymphocytes/100 leukoc ytesOrdered By: Kerwin Kumar on 06-12-2023 Lymphocytes/100 WBC (Bld) 5.0 % 19-41 [facility] Blood monocytes/100 leukocyt esOrdered By: Kerwin Kumar on 06-12-2023 Monocytes/100 WBC (Bld) 7.8 % 0-10 [facility] Blood platelet mean volumeOr dered By: Kerwin Kumar on 06-12-2023 Platelet mean volume (Bld) [Entitic vol] 10.7 fL 6.2-12.0 [facility] Determination of erythrocyte mean corpuscular volume (MCV)Ordered By: Kerwin Kumar on 06-12-2023 MCV (RBC) [Entitic vol] 90.3 fL 81-99 [facility] Hematocrit Auto (Bld) [Volum e fraction]Ordered By: Kerwin Kumar on 06-12-2023 Hematocrit (Bld) [Volume fraction] 41.0 % 37-47 [facility] Ketones Test strip Ql (U)Ord ered By: Kerwin Kumar on 06-12-2023 Ketones Ql (U) 50 mg/dl Negative [facility] Laboratory - Chemistry and C hemistry - challengeOrdered By: Kerwin Kumar on 06-12-2023 CO2 [Moles/Vol] 25.0 mmol/L 21.0-32.0 [facility] Urea nitrogen/Creatinine [Mass ratio] 17.5 mg/mg 10-20 [facility] Laboratory - Hematology and Cell countsOrdered By: Kerwin Kumar on 06-12-2023 Erythrocyte distribution width (RBC) [Entitic vol] 48.2 fL 35.1-43.9 [facility] Erythrocyte distribution width (RBC) [Ratio] 14.6 % 11.6-14.6 [facility] Immature granulocytes/100 WBC (Bld) 0.600 % 0.0-0.9 [facility] Comment on above: IG% - Immature Granu locytes (promyelocytes, myelocytes and metamyelocytes) > 1% indicates that a LEFT SHIFT is Present. MCH (RBC) [Entitic mass] 28.2 pg 27.0-32.0 [facility] Nucleated RBC/100 WBC (Bld) [Ratio] 0 % 0-5 [facility] MCHC Auto (RBC) [Mass/Vol]Or dered By: Kerwin Kumar on 06-12-2023 MCHC (RBC) [Mass/Vol] 31.2 g/dL 32-36 [facility] Mucus LM Ql (Urine sed)Order ed By: Kerwin Kumar on 06-12-2023 Mucus Ql (Urine sed) 0 SEEN /hpf [facility] Nitrite Test strip Ql (U)Ord ered By: Kerwin Kumar on 06-12-2023 Nitrite Ql (U) Positive Negative [facility] No Panel InformationOrdered By: Kerwin Kumar on 06-12-2023 Estimated Creatinine Clearance Calc 65.91 ml/min [facility] Estimated GFR (MDRD) Amer 88 mL/min >60 [facility] Comment on above: GFR Calc Estimated GFR (MDRD) Non-Af Amer 73 mL/min >60 [facility] Comment on above: Non- GFR Calc Platelets bldOrdered By: Ami Kumar on 06-12-2023 Platelets (Bld) [#/Vol] 309 10*3/uL 150-450 [facility] Protein Test strip Ql (U)Ord ered By: Kerwin Kumar on 06-12-2023 Protein Ql (U) 30 mg/dl Negative [facility] Serum or plasma calcium jessi urement (mass/volume)Ordered By: Kerwin Kumar on 06-12-2023 Calcium [Mass/Vol] 9.1 mg/dL 8.5-10.1 [facility] Serum or plasma creatinine m easurement (mass/volume)Ordered By: Kerwin Kumar on 06-12-2023 Creatinine [Mass/Vol] 0.80 mg/dL 0.55-1.02 [facility] Comment on above: The validity of the calculated GFR & GFRAA in patients over 70 years has not been determined. Clinical correlation is essential. Serum or plasma urea nitroge n measurement (mass/volume)Ordered By: Kerwin Kumar on 06-12-2023 Urea nitrogen [Mass/Vol] 14 mg/dL 7-18 [facility] Squamous epithelial cells de tection in urine sediment by light microscopyOrdered By: Kerwin Kumar on 06-12-2023 Epithelial cells.squamous LM Ql (Urine sed) 0-5 SEEN /hpf 5-10 [facility] Thin prep Papanicolaou smear with manual screeningOrdered By: Kerwin Kumar on 06-12-2023 Thin prep Papanicolaou smear with manual screening 8 5-15 [facility] Urine blood detectionOrdered By: Kerwin Kumar on 06-12-2023 RBC Ql (U) 150 /ul Negative [facility] RBC Ql (U) 0-5 SEEN /hpf 0-5 [facility] Urine clarityOrdered By: Ami Kumar on 06-12-2023 Clarity (U) Clear Clear [facility] Urine color determinationOrd ered By: Kerwin Kumar on 06-12-2023 Color (U) Yellow Yellow [facility] Urine glucose detectionOrder ed By: Kerwin Kumar on 06-12-2023 Glucose Ql (U) 50 mg/dl Normal [facility] Urine leukocyte esterase det ection by dipstickOrdered By: Kerwin Kumar on 06-12-2023 Leukocyte esterase Test strip Ql (U) 100 /ul Negative [facility] Urine pHOrdered By: Kerwin espinoza on 06-12-2023 pH (U) 6.0 [pH] 5.0 - 8.0 [facility] Urine sediment bacteria coun t by microscopy (number/high power field)Ordered By: Kerwin Kumar on 06-12-2023 Bacteria LM.HPF (Urine sed) [#/Area] 2 /[HPF] None Seen [facility] Urine specific gravity measu rementOrdered By: Kerwin Kumar on 06-12-2023 Specific gravity (U) [Rel density] 1.015 1.002-1.030 [facility] Urobilinogen Auto test strip Ql (U)Ordered By: Kerwin Kumar on 06-12-2023 Urobilinogen Ql (U) Normal mg/dl Normal [facility] NM CARDIAC PERF STRESS/PHARM on 01-28-2023 [facility] HEMOGLOBIN A1C (POC)on 12-30 HbA1c (Bld) [Mass fraction] 7.0 % Abnormal 4.2 - 5.6 % [facility] XR ABDOMEN 1V SUPINEon 09-23 [facility] ECG COMPLETEon 08-18-2022 Atrial Rate 96 BPM [facility] Calculated P [place] 28 degrees [facility] Calculated R [place] -16 degrees [facility] Calculated T [place] 5 degrees [facility] P-R Interval 180 ms [facility] QRS Duration 78 ms [facility] QT Interval 354 ms [facility] QTC Calculation (Bazett) 447 ms [facility] Ventricular Rate 96 BPM [facility] UA DIP, URINE (POC)on 2022 BILIRUBIN UA (POCT) Negative Negative [facility] CLARITY UA (POCT) Slightly Cloudy Cl [facility] COLOR UA (POCT) Dark yellow [facility] GLUCOSE UA (POCT) Negative Negative mg/dL [facility] HEMOGLOBIN/BLOOD UA (POCT) Large Abnormal Negative [facility] KETONE UA (POCT) Negative Negative mg/dL [facility] LEUKOCYTES UA (POCT) Trace Abnormal Negative [facility] NITRITE UA (POCT) Negative Negative [facility] PH UA (POCT) 5.5 4.5 - 8.0 [facility] Protein Ql (U) 100 mg/dL Abnormal Negative mg/dL [facility] SPECIFIC GRAVITY UA (POCT) >=1.030 1.005 - 1.030 [facility] UROBILINOGEN UA (POCT) 0.2 E.U./dL Kasia l E.U./dL [facility] XR DIGIT GENERAL 3V FRONTAL/ LAT/OBL RIGHTon 05-06-2022 [facility] XR Finger - right AP and Lat eral and obliqueon 05-06-2022 IMPRESSION: Acute, comminuted fracture of the third distal phalanx subungual tuft. Jewelry Model Maker: [email or web address] Transcribe Date/Time: May 06 2022 4:13P Dictated by : ORIN BEAL MD This examination was interpreted and the report reviewed and electronically signed by: ORIN BEAL MD on May 06 2022 4:15PM [facility] DIVISION OF RADIOLOGY * * *Final Report* [...] soft tissue swelling. DIVISION OF RADIOLOGY Provider, [facility] - 05/06/2022 * * *Final Report* [...] of the third distal phalanx subungual tuft. Jewelry Model Maker: [email or web address] Transcribe Date/Time: May 06 2022 4:13P Dictated by : ORIN BEAL MD This examination was interpreted and the report reviewed and electronically signed by: ORIN BEAL MD on May 06 2022 4:15PM [facility] Radiology Study observation (narrative) [facility] XR Finger - right AP and Lat eral and obliqueOrdered By: Ccf Provider on 05-06-2022 [facility] CBC panel Auto (Bld)on 04-27 Erythrocyte distribution width (RBC) [Ratio] 14.6 % 11.5 - 15.0 % [facility] Hematocrit (Bld) [Volume fraction] 40.6 % 36.0 - 46.0 % [facility] Hemoglobin (Bld) [Mass/Vol] 12.8 g/dL 11.5 - 15.5 g/dL [facility] MCH (RBC) [Entitic mass] 30.0 pg 26.0 - 34.0 pg [facility] MCHC (RBC) [Mass/Vol] 31.5 g/dL 30.5 - 36.0 g/dL [facility] MCV (RBC) [Entitic vol] 95.1 fL 80.0 - 100.0 fL [facility] Nucleated RBC (Bld) [#/Vol] <0.01 k/uL [facility] Platelet mean volume (Bld) [Entitic vol] 10.7 fL 9.0 - 12.7 fL [facility] Platelets (Bld) [#/Vol] 341 10*3/uL 150 - 400 k/uL [facility] RBC (Bld) [#/Vol] 4.27 10*6/uL 3.90 - 5.2 0 m/uL [facility] WBC (Bld) [#/Vol] 9.20 10*3/uL 3.70 - 11.00 k/uL [facility] XR Abdomen Supine and Uprigh ton 04-08-2022 IMPRESSION: 0.9 x 1.8 cm oblong calculus projects over the expected location of the left renal pelvis. Jewelry Model Maker: KOLE Transcribe Date/Time: Apr 08 2022 4:40P Dictated by : ORIN BEAL MD This examination was interpreted and the report reviewed and electronically signed by: ORIN BEAL MD on Apr 08 2022 4:41PM [facility] DIVISION OF RADIOLOGY * * *Final Report* [...] the pubic symphysis. DIVISION OF RADIOLOGY Provider, [facility] - 04/08/2022 * * *Final Report* * [...] expected location of the left renal pelvis. Jewelry Model Maker: [email or web address] Transcribe Date/Time: Apr 08 2022 4:40P Dictated by : ORIN BEAL MD This examination was interpreted and the report reviewed and electronically signed by: ORIN BEAL MD on Apr 08 2022 4:41PM [facility] Radiology Study observation (narrative) Daniela oliver [facility] XR Abdomen Supine and Uprigh tOrdered By: Ccf Provider on 04-08-2022 [facility] Bacteria identified Cx Nom ( Wound)on 03-07-2022 Microscopic observation Smear Nom (Unsp spec) Negative Abnormal [facility] Microscopic observation Smear Nom (Unsp spec) Rare Polymorphonuclear leukocytes Abnormal [facility] WOUND CULTURE AND GRAM STAIN on 03-07-2022 Bacteria identified Cx Nom (Wound) Moderate Klebsiella pneumoniae Abnormal [facility] Bacteria identified Cx Nom (Wound) Few Normal urogenital kj Abnormal [facility] EXTRA SWAB CONTAINER PERFORM ABLEon 03-04-2022 [facility] WOUND CULTURE AND GRAM STAIN on 03-04-2022 Bacteria identified Cx Nom (Wound) Invalid Interpretation Code [facility] Absolute lymphocyte counton 02-28-2022 Lymphocytes Auto (Unsp spec) [#/Vol] 1.71 10*3/uL 0.83-4.51 [facility] Work Phone: Basophil percentageon 2021 Basophils/100 WBC (Bld) 0.6 % 0-1 [facility] Work Phone: Bilirubin [Mass/Vol] 0.40 mg/dL 0.20-1.00 [facility] Work Phone: Comment on above: For patients on eltr ombopag therapy, use of Dimension [place] TBIL is not recommended. Chloride [Moles/Vol] 103 mmol/L 98-107 [facility] Work Phone: Eosinophils/100 WBC (Bld) 0.9 % 0-5 [facility] Work Phone: Glucose [Mass/Vol] 151 mg/dL 74-106 [facility] Work Phone: Comment on above: Fasting Glucose resu lt greater than or equal to 126 mg/dL suggests DIABETES MELLITUS per A.D.A. criteria. Neutrophils (Bld) [#/Vol] 9.1 10*3/uL 2.0-7.7 [facility] Work Phone: Neutrophils/100 WBC (Bld) 74.8 % 47-70 [facility] Work Phone: Potassium [Moles/Vol] 3.9 mmol/L 3.5-5.1 [facility] Work Phone: [phone] Protein [Mass/Vol] 7.7 g/dL 6.4-8.2 [facility] Work Phone: [phone] Sodium [Moles/Vol] 139 mmol/L 136-145 [facility] Work Phone: [phone] WBC (Bld) [#/Vol] 12.2 10*3/uL 4.4-11.0 [facility] Work Phone: [phone] Blood erythrocytes count (nu mber/volume)on 02-28-2022 RBC (Bld) [#/Vol] 4.82 10*6/uL 4.2-5.4 [facility] Work Phone: [phone] Blood hemoglobin measurement (mass/volume)on 02-28-2022 Hemoglobin (Bld) [Mass/Vol] 14.7 g/dL 12.0-15.0 [facility] Work Phone: [phone] Blood lymphocytes/100 leukoc yteson 02-28-2022 Lymphocytes/100 WBC (Bld) 14.1 % 19-41 [facility] Work Phone: [phone] Blood monocytes/100 leukocyt eson 02-28-2022 Monocytes/100 WBC (Bld) 9.1 % 0-10 [facility] Work Phone: [phone] Blood platelet mean volumeon 02-28-2022 Platelet mean volume (Bld) [Entitic vol] 11.0 fL 6.2-12.0 [facility] Work Phone: [phone] Determination of erythrocyte mean corpuscular volume (MCV)on 02-28-2022 MCV (RBC) [Entitic vol] 95.6 fL 81-99 [facility] Work Phone: Direct bilirubinon Bilirubin.direct [Mass/Vol] 0.09 mg/dL 0.00-0.30 [facility] Work Phone: [phone] Glucose Glucometer (BldC) [M ass/Vol]on 02-28-2022 Glucose [Mass/Vol] 146 mg/dL 74-106 [facility] Work Phone: [phone] Comment on above: MANAGEMENT OF PATIEN T CARE PER NURSING PROTOCOL Hematocrit Auto (Bld) [Volum e fraction]on 02-28-2022 Hematocrit (Bld) [Volume fraction] 46.1 % 37-47 [facility] Work Phone: [phone] Laboratory - Chemistry and C hemistry - challengeon 02-28-2022 ALP [Catalytic activity/Vol] 115 U/L 45-117 [facility] Work Phone: [phone] ALT [Catalytic activity/Vol] 15 U/L 13-56 [facility] Work Phone: [phone] CO2 [Moles/Vol] 29.0 mmol/L 21.0-32.0 [facility] Work Phone: [phone] Globulin (S) [Mass/Vol] 4.8 g/dL 2.2-4.2 [facility] Work Phone: [phone] Lipase [Catalytic activity/Vol] 74 U/L 73-393 [facility] Work Phone: [phone] Urea nitrogen/Creatinine [Mass ratio] 21.1 mg/mg 10-20 [facility] Work Phone: [phone] Laboratory - Hematology and Cell countson 02-28-2022 Erythrocyte distribution width (RBC) [Entitic vol] 49.0 fL 35.1-43.9 [facility] Work Phone: [phone] Erythrocyte distribution width (RBC) [Ratio] 13.9 % 11.6-14.6 [facility] Work Phone: [phone] Immature granulocytes/100 WBC (Bld) 0.500 % 0.0-0.9 [facility] Work Phone: [phone] Comment on above: IG% - Immature Granu locytes (promyelocytes, myelocytes and metamyelocytes) > 1% indicates that a LEFT SHIFT is Present. MCH (RBC) [Entitic mass] 30.5 pg 27.0-32.0 [facility] Work Phone: [phone] Nucleated RBC/100 WBC (Bld) [Ratio] 0 % 0-5 [facility] Work Phone: MCHC Auto (RBC) [Mass/Vol]on 02-28-2022 MCHC (RBC) [Mass/Vol] 31.9 g/dL 32-36 [facility] Work Phone: No Panel Informationon 02-28 Estimated Creatinine Clearance Calc 42.00 ml/min [facility] Work Phone: [phone] Estimated GFR (MDRD) Amer 94 mL/min >60 [facility] Work Phone: [phone] Comment on above: GFR Calc Estimated GFR (MDRD) Non-Af Amer 78 mL/min >60 [facility] Work Phone: [phone] Comment on above: Non- GFR Calc Platelets bldon 02-28-2022 Platelets (Bld) [#/Vol] 311 10*3/uL 150-450 [facility] Work Phone: [phone] Serum or plasma albumin jessi urement (mass/volume)on 02-28-2022 Albumin [Mass/Vol] 2.9 g/dL 3.2-5.0 [facility] Work Phone: [phone] Serum or plasma calcium jessi urement (mass/volume)on 02-28-2022 Calcium [Mass/Vol] 9.2 mg/dL 8.5-10.1 [facility] Work Phone: [phone] Serum or plasma creatinine m easurement (mass/volume)on 02-28-2022 Creatinine [Mass/Vol] 0.76 mg/dL 0.55-1.02 [facility] Work Phone: Comment on above: The validity of the calculated GFR & GFRAA in patients over 70 years has not been determined. Clinical correlation is essential. Serum or plasma urea nitroge n measurement (mass/volume)on 02-28-2022 Urea nitrogen [Mass/Vol] 16 mg/dL 7-18 [facility] Work Phone: [phone] Thin prep Papanicolaou smear with manual screeningon 02-28-2022 Thin prep Papanicolaou smear with manual screening 9 U/L 15-37 [facility] Work Phone: Thin prep Papanicolaou smear with manual screening 7 5-15 [facility] Work Phone: Absolute lymphocyte counton 02-16-2022 Lymphocytes Auto (Unsp spec) [#/Vol] 1.81 10*3/uL 0.83-4.51 [facility] Work Phone: Basophil percentageon 2021 Basophils/100 WBC (Bld) 0.7 % 0-1 [facility] Work Phone: Chloride [Moles/Vol] 109 mmol/L 98-107 [facility] Work Phone: Eosinophils/100 WBC (Bld) 1.4 % 0-5 [facility] Work Phone: Glucose [Mass/Vol] 85 mg/dL 74-106 [facility] Work Phone: Neutrophils (Bld) [#/Vol] 6.2 10*3/uL 2.0-7.7 [facility] Work Phone: Neutrophils/100 WBC (Bld) 68.0 % 47-70 [facility] Work Phone: Potassium [Moles/Vol] 4.0 mmol/L 3.5-5.1 [facility] Work Phone: Sodium [Moles/Vol] 141 mmol/L 136-145 [facility] Work Phone: WBC (Bld) [#/Vol] 9.1 10*3/uL 4.4-11.0 [facility] Work Phone: Blood erythrocytes count (nu mber/volume)on 02-16-2022 RBC (Bld) [#/Vol] 4.18 10*6/uL 4.2-5.4 [facility] Work Phone: Blood hemoglobin measurement (mass/volume)on 02-16-2022 Hemoglobin (Bld) [Mass/Vol] 12.3 g/dL 12.0-15.0 [facility] Work Phone: Blood lymphocytes/100 leukoc yteson 02-16-2022 Lymphocytes/100 WBC (Bld) 19.8 % 19-41 [facility] Work Phone: Blood monocytes/100 leukocyt eson 02-16-2022 Monocytes/100 WBC (Bld) 9.4 % 0-10 [facility] Work Phone: Blood platelet mean volumeon 02-16-2022 Platelet mean volume (Bld) [Entitic vol] 11.0 fL 6.2-12.0 [facility] Work Phone: Determination of erythrocyte mean corpuscular volume (MCV)on 02-16-2022 MCV (RBC) [Entitic vol] 94.5 fL 81-99 [facility] Work Phone: Glucose Glucometer (BldC) [M ass/Vol]on 02-16-2022 Glucose [Mass/Vol] 64 mg/dL 74-106 [facility] Work Phone: Comment on above: MANAGEMENT OF PATIEN T CARE PER NURSING PROTOCOL Hematocrit Auto (Bld) [Volum e fraction]on 02-16-2022 Hematocrit (Bld) [Volume fraction] 39.5 % 37-47 [facility] Work Phone: Laboratory - Chemistry and C hemistry - challengeon 02-16-2022 CO2 [Moles/Vol] 26.0 mmol/L 21.0-32.0 [facility] Work Phone: Urea nitrogen/Creatinine [Mass ratio] 21.1 mg/mg 10-20 [facility] Work Phone: Laboratory - Hematology and Cell countson 02-16-2022 Erythrocyte distribution width (RBC) [Entitic vol] 48.5 fL 35.1-43.9 [facility] Work Phone: [phone] Erythrocyte distribution width (RBC) [Ratio] 14.0 % 11.6-14.6 [facility] Work Phone: Immature granulocytes/100 WBC (Bld) 0.700 % 0.0-0.9 [facility] Work Phone: Comment on above: IG% - Immature Granu locytes (promyelocytes, myelocytes and metamyelocytes) > 1% indicates that a LEFT SHIFT is Present. MCH (RBC) [Entitic mass] 29.4 pg 27.0-32.0 [facility] Work Phone: Nucleated RBC/100 WBC (Bld) [Ratio] 0 % 0-5 [facility] Work Phone: MCHC Auto (RBC) [Mass/Vol]on 02-16-2022 MCHC (RBC) [Mass/Vol] 31.1 g/dL 32-36 [facility] Work Phone: No Panel Informationon 02-16 Estimated Creatinine Clearance Calc 42.00 ml/min [facility] Work Phone: Estimated GFR (MDRD) Amer 110 mL/min >60 [facility] Work Phone: Comment on above: GFR Calc Estimated GFR (MDRD) Non-Af Amer 91 mL/min >60 [facility] Work Phone: Comment on above: Non- GFR Calc Troponin I High Sensitivity 8 pg/mL 3.0-54.0 [facility] Work Phone: Comment on above: Please Note: New Ashley t Units and Gender Specific Reference Ranges. For more information see Policy Stat Procedure [place] High Sensitivity Troponin (TNIH) and attachments. Platelets bldon 02-16-2022 Platelets (Bld) [#/Vol] 317 10*3/uL 150-450 [facility] Work Phone: [phone] Serum or plasma calcium jessi urement (mass/volume)on 02-16-2022 Calcium [Mass/Vol] 8.9 mg/dL 8.5-10.1 [facility] Work Phone: [phone] Serum or plasma creatinine m easurement (mass/volume)on 02-16-2022 Creatinine [Mass/Vol] 0.66 mg/dL 0.55-1.02 [facility] Work Phone: Comment on above: The validity of the calculated GFR & GFRAA in patients over 70 years has not been determined. Clinical correlation is essential. Serum or plasma urea nitroge n measurement (mass/volume)on 02-16-2022 Urea nitrogen [Mass/Vol] 14 mg/dL 18 [facility] Work Phone: Thin prep Papanicolaou smear with manual screeningon 02-16-2022 Thin prep Papanicolaou smear with manual screening 6 -15 [facility] Work Phone: GLUCOSE, BLOOD (POC)on 12-17 Glucose [Mass/Vol] 248 mg/dL Abnormal 74 - 99 mg/dL [facility] UA DIP, URINE (POC)on 2021 BILIRUBIN UA (POCT) Negative Negative [facility] CLARITY UA (POCT) Cloudy [facility] COLOR UA (POCT) Dark yellow [facility] GLUCOSE UA (POCT) >=1000 Abnormal Negative mg/dL [facility] HEMOGLOBIN/BLOOD UA (POCT) Large Abnormal Negative [facility] KETONE UA (POCT) Trace Negative mg/dL [facility] LEUKOCYTES UA (POCT) Small Abnormal Negative [facility] NITRITE UA (POCT) Positive Abnormal Negative [facility] PH UA (POCT) 5.0 4.5 - 8.0 [facility] Protein Ql (U) 100 mg/dL Abnormal Negative mg/dL [facility] SPECIFIC GRAVITY UA (POCT) 1.025 1.005 - 1.030 [facility] UROBILINOGEN UA (POCT) 0.2 E.U./dL Kasia l E.U./dL [facility] TSH BLDon 10-04-2021 TSH Qn 1.840 m[IU]/L 0.270 - 4.200 mIU/L [facility] XR Chest PA and Lateralon IMPRESSION: No acute radiographic abnormality. Jewelry Model Maker: KOLE Transcribe Date/Time: Oct 04 2021 7:28A Dictated by : MALIKA JACOBSON MD This examination was interpreted and the report reviewed and electronically signed by: MALIKA JACOBSON MD on Oct 04 2021 7:28AM EST ZZZ_DO_NOT_U SE_DIVISION OF RADIOLOGY * * *Final Report* * [...] thoracic spine. ZZZ_DO_NOT_U _DIVISION OF RADIOLOGY Provider, Patsy Watson [facility] - 10/04/2021 * * *Final Report* * [...] spine. IMPRESSION IMPRESSION: No acute radiographic abnormality. Jewelry Model Maker: PSCB Transcribe Date/Time: Oct 04 2021 7:28A Dictated by : MALIKA JACOBSON MD This examination was interpreted and the report reviewed and electronically signed by: MALIKA JACOBSON MD on Oct 04 2021 7:28AM EST [facility] XR Chest PA and LateralOrder ed By: [facility] Provider on 10-04-2021 [facility] CBC W Auto Differential pane l (Bld)on 05-06-2022 Abs Immature Gran 0.05 k/uL <0.10 k/uL [facility] Basophils (Bld) [#/Vol] 0.07 10*3/uL <0.11 k/uL [facility] Basophils/100 WBC (Bld) 0.7 % [facility] Differential cell count method Nom (Bld) Auto [facility] Eosinophils (Bld) [#/Vol] 0.12 10*3/uL <0.46 k/uL [facility] Eosinophils/100 WBC (Bld) 1.2 % [facility] Erythrocyte distribution width (RBC) [Ratio] 14.2 % 11.5 - 15.0 % [facility] Hematocrit (Bld) [Volume fraction] 43.9 % 36.0 - 46.0 % [facility] Hemoglobin (Bld) [Mass/Vol] 14.2 g/dL 11.5 - 15.5 g/dL [facility] Immature Gran % 0.5 % [facility] Lymphocytes (Bld) [#/Vol] 2.06 10*3/uL 1.00 - 4.00 k/uL [facility] Lymphocytes/100 WBC (Bld) 20.9 % [facility] MCH (RBC) [Entitic mass] 30.5 pg 26.0 - 34.0 pg [facility] MCHC (RBC) [Mass/Vol] 32.3 g/dL 30.5 - 36.0 g/dL [facility] MCV (RBC) [Entitic vol] 94.2 fL 80.0 - 100.0 fL [facility] Monocytes (Bld) [#/Vol] 0.81 10*3/uL <0.87 k/uL [facility] Monocytes/100 WBC (Bld) 8.2 % [facility] Neutrophils (Bld) [#/Vol] 6.76 10*3/uL 1.45 - 7.50 k/uL [facility] Neutrophils/100 WBC (Bld) 68.5 % [facility] Nucleated RBC (Bld) [#/Vol] 10*3/uL <0.01 k/uL [facility] Nucleated RBC/100 WBC (Bld) [Ratio] 0.0 /100 WBC [facility] Platelet mean volume (Bld) [Entitic vol] 11.1 fL 9.0 - 12.7 fL [facility] Platelets (Bld) [#/Vol] 293 10*3/uL 150 - 400 k/uL [facility] RBC (Bld) [#/Vol] 4.66 10*6/uL 3.90 - 5.2 0 m/uL [facility] WBC (Bld) [#/Vol] 9.87 10*3/uL 3.70 - 11.00 k/uL [facility] Comprehensive metabolic 2000 panelon 10-03-2021 Albumin [Mass/Vol] 3.9 g/dL 3.9 - 4.9 g/dL [facility] ALP [Catalytic activity/Vol] 100 U/L 34 - 123 U/L [facility] ALT [Catalytic activity/Vol] 9 U/L 7 - 38 U/L [facility] Anion gap [Moles/Vol] 10 mmol/L 9 - 18 mmol/L [facility] AST [Catalytic activity/Vol] 14 U/L 13 - 35 U/L [facility] Bilirubin [Mass/Vol] 0.2 mg/dL 0.2 - 1 .3 mg/dL [facility] Calcium [Mass/Vol] 9.1 mg/dL 8.5 - 10. 2 mg/dL [facility] Chloride [Moles/Vol] 104 mmol/L 97 - 10 5 mmol/L [facility] CO2 [Moles/Vol] 23 mmol/L 22 - 30 mmol/L [facility] Creatinine [Mass/Vol] 0.70 mg/dL 0.58 - 0.96 mg/dL [facility] Estimated Glomerular Filtration Rate 88 mL/min/1.73m >=60 mL/min/1.73 m [facility] Glucose [Mass/Vol] 128 mg/dL High 74 - 99 mg/dL [facility] Potassium [Moles/Vol] 4.3 mmol/L 3.7 - 5.1 mmol/L [facility] Protein [Mass/Vol] 7.2 g/dL 6.3 - 8.0 g/dL [facility] Sodium [Moles/Vol] 137 mmol/L 136 - 144 mmol/L [facility] Urea nitrogen [Mass/Vol] 21 mg/dL 7 - 21 mg/dL [facility]ST [facility] FR[facility]AL[facility] and Lateralon Radiology Study observation (narrative) [facility]ES [place] 06-12-2019 ANES POST HNO ID: [id number] Author: Mayra Moore Service: Anesthesiology Author Type: [...] 12, 2019 TIME: 8:36 AM PAGER/CONTACT #: [facility] ANES PREOPon 06-12-2019 ANES PREOP HNO ID: [id number] Author: Mayra Moore Service: Anesthesiology Author Type: Anesthesiologist Type: Anesthesia PreOp Filed: 06/12/2019 7:09 AM Note Text: REGIONAL ANESTHESIOLOGY PREOPERATIVE ASSESSMENT Surgeon(s): Esther Prado Procedure(s) (LRB): EXAM UNDER ANESTHESIA PELVIC / VAGINAL (N/A) BIOPSY VULVA (N/A) Vitals: 06/12/19653 BP: 145/74 Pulse: 70 Resp: 16 Temp: 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 per REGULATORY ATTORNEY outside facility Apr 1997 - MORBID OBESITY 08/18/2007 - Obstructive sleep apnea Sleep study 2002 - Occlusion and stenosis of carotid artery without mention of cerebral infarction 03/09/06 mild stenosis shown on u/s at [facility] u/s repeated 02/02/07 with no change - Pure hypercholesterolemia - Type II or unspecified type diabetes mellitus with renal manifestations, uncontrolled(250.42) - Unspecified glaucoma(365.9) - Unspecified pruritic disorder PAST SURGICAL HISTORY Procedure Laterality Date - EGD W/O [facility] SPECIMEN W/BX 12-15-15 - GASTRIC BYPASS 09/14/2007 - I AND [...] by mouth once daily. - pnv/iron,carb/om-3/fa/f at 1(PRE-JIMY MULTIVITAMINS WITH MINERALS 27 [...] injection (XYLOCAINE) 0.1-0.2 mL INTRADERMAL PRN Chaparrita Abarca (Fel) MD Ravindra - lactated ringers infusion 5-30 mL/hr INTRAVENOUS CONTINUOUS Chaparrita Abarca (Fel) MD Ravindra - acetaminophen 1,000 mg tab(s) (TYLENOL) 1,000 [...] 12, 2019 TIME: 7:07 AM PAGER/CONTACT #: [facility] NURSING PROGon 06-12-2019 NURSING PROG HNO ID: [id number] Author: Natalya (Rn) ISMAEL Cox Service: Nursing Author Type: Registered Nurse Type: Nursing Progress Note Filed: 06/13/2019 2:57 PM Note Text: Nursing Progress Note Topic of Note: Post op phone call Miriam Davenport [phone] Pt has concern about stitches poking her and location of the areas where biopsies were taken. Encouraged pt to reach out to Dr. Prado for clarification. Phone number provided. This note was completed by: Natalya Cox RN Normal [facility] SURGICAL PATHOLOGYon 020 SURGICAL PATHOLOGY ADDENDUM PRESENT Specimen originated from [facility] Specimen #: [id number] Submitting Physician: ESTHER PRADO FINAL DIAGNOSIS 1. [...] and Gram stains were performed at the [facility] and compared to appropriate controls. The PAS/F stain highlights fungal hyphae within the stratum corneum. The Gram stain fails to highlight bacterial colonies. Overall, the above histologic findings and special stain results are those of a fungal infections process. Clinical correlation is recommended. ERIKA/SAMUEL/salinas 06/27/2019 Addendum Pathologist: Rahda Walters M.D. Electronic Signature CLINICAL DATA LICHEN [...] in one cassette. Gross examination performed at [facility], [address] [place] [address] 06/12/2019 9:33:07 PM Date of Report: 06/13/2019 Date of Procedure: 06/12/2019 Date of Receipt: 06/12/2019 Submitted by: ESTHER PRADO Additional Physician(s): GUILLAUME DOMINGUEZ Location: [facility] Diagnostic interpretation performed at [place] [address]. [place] Number: [id number] [facility] NURSING PROGon 06-01-2019 NURSING PROG HNO ID: [id number] Author: Karin FalkRn) ISMAEL Herron Service: General Surgery Author Type: Registered Nurse Type: Nursing Progress Note Filed: 06/01/2019 8:16 PM Note Text: PACC Nurse Progress Note History AND Physical: PACC Visit Date: 05-19-19 Original HANDP Date: N/A ED visit Date: N/A Outside HANDP Scanned Date: N/A Labs Within Last 6 Months: CBC: Date 03-31-19 BMP/CMP: Date 03-31-19 Results scanned in [facility] 05-01-19 Imaging Within Last 12 Months: N/A Cardiac Testing: EKG in last 12 Months: Yes: Date: 03-17-19, Comment: Confirmed in [facility] Last Menstrual Period: LMP Date: Not recorded [...] to hold AC prior to EUA and biopsies" -per Dr. Esther Prado ? Hyperlipidemia Assessment: [...] lumbar region Assessment: following pain management at [facility], receiving facet injections ? Osteopenia Assessment: on [...] RN June 01, 2019 8:14 PM Normal [facility] HOSPon 05-04-2019 HOSP Patient:Layla Davenport MRN: Height:5' 6"(1.676 m) Weight:230 lb (104.327 kg) Outpatient Medications [...] Diabetes mellitus type 2, uncontrolled, without complications [UNY7637] Hyperlipidemia [E78.5] Chronic rhinitis [J31.0] Angioneurotic edema [...] region, unspecified [M71.9, M67.919] Other physical therapy [SMF9402] Sprain of lumbar region [S33.5XXA] Vitamin D [...] of Jordin-en-Y gastric bypass [Z98.84] Aortic sclerosis [ZVM8838] Carotid artery stenosis without cerebral infarction, bilateral [...] for the following basenames: K,HCT Progress Notes ([facility]): Lola Wong LPN 06/05/2019 10:43 AM Signed Patient requesting referrals for several specialists: 1) Dr. Cartagena-Bariatric/[facility] 2) Dr. Luong - Product Development (non [facility]) 3) Dr. Reina - Home Restoration Service Supervisor (non [facility]) 4) Dr Prado - Gynecology/[facility] Comfort Patterson, CORD MAKER.PLANT CONTROL AIDE 06/06/2019 8:07 AM Signed Can you clarify why she is seeing optometric assistant and logistics associate - diagnoses for referrals? Lola Wong LPN 06/06/2019 8:[address] Dominguez, did patient indicate to you why she is seeing these specialists? Guillaume Dominguez MD 06/07/2019 7:26 PM Signed Filed order Do not use Non[facility] consult orders (there is a place with consult orders to check if they are a [facility] provider/have Epic privileges. Progress Notes ([facility]): Ning Nino LPN 06/05/2019 3:51 PM Signed DATE OF SERVICE: [...] patient have an advanced directive: No Does [facility] have a copy of the patient's [...] prescribed by anesthesia, internal medicine, surgeon, or MOTORCYCLE DELIVERY DRIVER Stop NSAIDs, Aspirin (ASA), vitamins, herbal supplements, [...] jewelry, body piercing, makeup, contacts, lotions, nail angolan on fingers, or anything in hair on [...] if after hours patient instructed to call special machine operator and ask for environmental health technologist mgmt consultant onc resident. CORONA program offered to patient: [...] None Educator: Ning Nino LPN [facility] [place] [facility] MRI LUMBAR SPINE WO IVCONon 10-03-2018 MRI LUMBAR SPINE WO IVCON * * *Final Report* * * DATE OF EXAM: Oct 03 2018 9:18AM [facility] 0303 - MRI LUMBAR SPINE WO IVCON [...] on Oct 03 2018 10:38AM EST [id number] Normal [facility] Vital Signs Date Time Vital Sign Value Performing Clinician Facility 08-03-2024 13:35-0500 Body height 165.1 cm Tika Jones MD Work Phone: [facility] 08-03-2024 13:35-0500 Diastolic blood pressure 56 mm[Hg] Tika tamayo MD Work Phone: [facility] 08-03-2024 13:35-0500 Heart rate 71 /min Tika Jones MD Work Phone: [facility] 08-03-2024 13:35-0500 Respiratory rate 18 /min Tkia Jones MD Work Phone: [facility] 08-03-2024 13:35-0500 SaO2% (BldA) [Mass fraction] 97 % Tika Jones MD Work Phone: [facility] 08-03-2024 13:35-0500 Systolic blood pressure 103 mm[Hg] Tika Jones MD Work Phone: [facility] 05-11-2024 16:43-0500 SaO2% (BldA) [Mass fraction] 97 % GUILLAUME DOMINGUEZ [facility] Comment on above: Order Comment: Specimen Type: ARTERIAL B LOOD SPECIMENOrdering Facility: [facility] Address: [address] [place] [address] Performed By: #### A LLBG ####[facility] LABORATORYCLIA [id number] [place] [address] [place] 05-06-2024 01:12-0500 Body temperature 98.2 [degF] Dr. Guillaume Dominguez MD Work Phone: [facility] 05-06-2024 01:12-0500 Diastolic blood pressure 57 mm[Hg] Dr. Guillaume hinds MD Work Phone: [facility] 05-06-2024 01:12-0500 Heart rate 76 /min Dr. Guillaume Dominguez MD Work Phone: [facility] 05-06-2024 01:12-0500 Respiratory rate 17 /min Dr. Guillaume Dominguez MD Work Phone: [facility] 05-06-2024 01:12-0500 SaO2% (BldA) [Mass fraction] 95 % Dr. Guillaume Dominguez MD Work Phone: [facility] 05-06-2024 01:12-0500 Systolic blood pressure 102 mm[Hg] Dr. Guillaume abarca MD Work Phone: [facility] 05-06-2024 00:24-0500 Inhaled oxygen flow rate 2 L/min Dr. Guillaume hinds MD Work Phone: [facility] 05-05-2024 22:59-0500 Body height 167.[address] Guillaume Dominguez MD Work Phone: [facility] 05-05-2024 22:59-0500 Body mass index (BMI) [Ratio] 30.7 kg/m2 Dr. Guillaume Dominguez MD Work Phone: [facility] 05-05-2024 22:59-0500 Body weight 86.[address] Guillaume Dominguez MD Work Phone: [facility] 04-28-2024 16:40-0500 Body mass index (BMI) [Ratio] 30.67 kg/m2 Guillaume Dominguez MD Work Phone: [facility] 04-28-2024 16:40-0500 Body temperature 98.01 [degF] Guillaume Dominguez MD Work Phone: [facility] 04-28-2024 16:40-0500 Body weight 83.6 kg Guillaume Dominguez MD Work Phone: [facility] 04-28-2024 16:40-0500 Diastolic blood pressure 68 mm[Hg] Guillaume Oliver Work Phone: [facility] 04-28-2024 16:40-0500 Heart rate 93 /min Guillaume Dominguez MD Work Phone: [facility] 04-28-2024 16:40-0500 Respiratory rate 16 /min Guillaume Dominguez MD Work Phone: [facility] 04-28-2024 16:40-0500 SaO2% (BldA) [Mass fraction] 98 % Guillaume Dominguez MD Work Phone: [facility] 04-28-2024 16:40-0500 Systolic blood pressure 117 mm[Hg] Guillaume Dominguez MD Work Phone: [facility] 01-10-2024 11:38-0400 Body mass index (BMI) [Ratio] 32.94 kg/m2 Comfort Patterson APRN.CNS Work Phone: [facility] 01-10-2024 11:38-0400 Body weight 89.8 kg Comfort Patterson CORD MAKER.PLANT CONTROL AIDE Work Phone: [facility] 01-10-2024 11:38-0400 Diastolic blood pressure 76 mm[Hg] Comfort Patterson CORD MAKER.PLANT CONTROL AIDE Work Phone: [facility] 01-10-2024 11:38-0400 Heart rate 90 /min Comfort Patterson CORD MAKER.PLANT CONTROL AIDE Work Phone: [facility] 01-10-2024 11:38-0400 Respiratory rate 16 /min Comfort Patterson CORD MAKER.PLANT CONTROL AIDE Work Phone: [facility] 01-10-2024 11:38-0400 Systolic blood pressure 113 mm[Hg] Comfort Patterson CORD MAKER.PLANT CONTROL AIDE Work Phone: [facility] 12-24-2023 11:24-0400 Body mass index (BMI) [Ratio] 33.28 kg/m2 Josefa Flynn CORD MAKER.CONSULTING SERVICES ASSOCIATE Work Phone: [facility] 12-24-2023 11:24-0400 Body weight 90.72 kg Josefa Flynn CORD MAKER.CONSULTING SERVICES ASSOCIATE Work Phone: [facility] 12-24-2023 11:24-0400 Diastolic blood pressure 70 mm[Hg] Josefa Flynn CORD MAKER.CONSULTING SERVICES ASSOCIATE Work Phone: [facility] 12-24-2023 11:24-0400 Heart rate 80 /min Josefa Flynn CORD MAKER.CONSULTING SERVICES ASSOCIATE Work Phone: [facility] 12-24-2023 11:24-0400 Respiratory rate 20 /min Josefa Flynn CORD MAKER.CONSULTING SERVICES ASSOCIATE Work Phone: [facility] 12-24-2023 11:24-0400 Systolic blood pressure 124 mm[Hg] Josefa Flynn CORD MAKER.CONSULTING SERVICES ASSOCIATE Work Phone: [facility] 12-10-2023 16:16-0400 Body mass index (BMI) [Ratio] 33.25 kg/m2 Guillaume Dominguez MD Work Phone: [facility] 12-10-2023 16:16-0400 Body temperature 98.1 [degF] Guillaume Dominguez MD Work Phone: [facility] 12-10-2023 16:16-0400 Body weight 90.63 kg Guillaume Dominguez MD Work Phone: [facility] 12-10-2023 16:16-0400 Diastolic blood pressure 68 mm[Hg] Guillaume Oliver Work Phone: [facility] 12-10-2023 16:16-0400 Heart rate 94 /min Guillaume Dominguez MD Work Phone: [facility] 12-10-2023 16:16-0400 Respiratory rate 18 /min Guillaume Dominguez MD Work Phone: [facility] 12-10-2023 16:16-0400 SaO2% (BldA) [Mass fraction] 97 % Guillaume Dominguez MD Work Phone: [facility] 12-10-2023 16:16-0400 Systolic blood pressure 118 mm[Hg] Guillaume Dominguez MD Work Phone: [facility] 10-29-2023 15:53-0400 Diastolic blood pressure 80 mm[Hg] Curtis Oliver Work Phone: [facility] 10-29-2023 15:53-0400 Heart rate 89 /min Cutris Nassar MD Work Phone: [facility] 10-29-2023 15:53-0400 Systolic blood pressure 142 mm[Hg] Curtis Nassar MD Work Phone: [facility] 10-11-2023 11:23-0400 Body height 165.1 cm Comfort Patterson APRN.PLANT CONTROL AIDE Work Phone: [facility] 10-11-2023 11:23-0400 Body mass index (BMI) [Ratio] 33.78 kg/m2 Comfort Patterson APRN.PLANT CONTROL AIDE Work Phone: [facility] 10-11-2023 11:23-0400 Body weight 92.08 kg Comfort Patterson CORD MAKER.PLANT CONTROL AIDE Work Phone: [facility] 10-11-2023 11:23-0400 Diastolic blood pressure 81 mm[Hg] Comfort Patterson CORD MAKER.PLANT CONTROL AIDE Work Phone: [facility] 10-11-2023 11:23-0400 Heart rate 88 /min Comfort Patterson CORD MAKER.PLANT CONTROL AIDE Work Phone: [facility] 10-11-2023 11:23-0400 Respiratory rate 16 /min Comfort Patetrson CORD MAKER.PLANT CONTROL AIDE Work Phone: [facility] 10-11-2023 11:23-0400 Systolic blood pressure 119 mm[Hg] Comfort Patterson CORD MAKER.PLANT CONTROL AIDE Work Phone: [facility] 08-13-2023 11:10-0400 Body weight 94.35 kg Josefa Flynn CORD MAKER.CONSULTING SERVICES ASSOCIATE Work Phone: [facility] 08-13-2023 11:10-0400 Diastolic blood pressure 70 mm[Hg] Josefa Flynn CORD MAKER.CONSULTING SERVICES ASSOCIATE Work Phone: [facility] 08-13-2023 11:10-0400 Heart rate 98 /min Josefa Flynn CORD MAKER.CONSULTING SERVICES ASSOCIATE Work Phone: [facility] 08-13-2023 11:10-0400 Respiratory rate 16 /min Josefa Flynn CORD MAKER.CONSULTING SERVICES ASSOCIATE Work Phone: [facility] 08-13-2023 11:10-0400 SaO2% (BldA) [Mass fraction] 95 % Josefa Flynn CORD MAKER.CONSULTING SERVICES ASSOCIATE Work Phone: [facility] 08-13-2023 11:10-0400 Systolic blood pressure 116 mm[Hg] Josefa Flynn CORD MAKER.CONSULTING SERVICES ASSOCIATE Work Phone: [facility] 08-11-2023 08:59-0400 Body weight 94.26 kg Martha Germain DO Work Phone: [facility] 08-11-2023 08:59-0400 Diastolic blood pressure 79 mm[Hg] Martha Germain DO Work Phone: [facility] 08-11-2023 08:59-0400 Heart rate 89 /min Martha Durand DO Work Phone: [facility] 08-11-2023 08:59-0400 Systolic blood pressure 127 mm[Hg] Martha Durand D O Work Phone: [facility] 07-29-2023 09:57-0500 Body height 165.1 cm Radha Walters MD Work Phone: [facility] 07-29-2023 09:57-0500 Body weight 94.21 kg Radha Walters MD Work Phone: [facility] 07-08-2023 15:43-0500 Body weight 94.8 kg Rajiv Walker MD Work Phone: [facility] 07-08-2023 15:43-0500 Diastolic blood pressure 82 mm[Hg] Rajiv Walker MD Work Phone: [facility] 07-08-2023 15:43-0500 Heart rate 101 /min Rajiv Walker MD Work Phone: [facility] 07-08-2023 15:43-0500 Systolic blood pressure 145 mm[Hg] Rajiv Oliver Work Phone: [facility] 06-25-2023 14:32-0500 Body height 165.1 cm Nhi Wil CORD MAKER.CONSULTING SERVICES ASSOCIATE Work Phone: [facility] 06-25-2023 14:32-0500 Body weight 95.5 kg Nhi Wil CORD MAKER.CONSULTING SERVICES ASSOCIATE Work Phone: [facility] 06-25-2023 14:32-0500 Diastolic blood pressure 68 mm[Hg] Nhi Wil CORD MAKER.CONSULTING SERVICES ASSOCIATE Work Phone: [facility] 06-25-2023 14:32-0500 Heart rate 72 /min Nhi Wil CORD MAKER.CONSULTING SERVICES ASSOCIATE Work Phone: [facility] 06-25-2023 14:32-0500 SaO2% (BldA) [Mass fraction] 98 % Nhi De La Torre CORD MAKER.CONSULTING SERVICES ASSOCIATE Work Phone: [facility] 06-25-2023 14:32-0500 Systolic blood pressure 118 mm[Hg] Nhi De La Torre CORD MAKER.CONSULTING SERVICES ASSOCIATE Work Phone: [facility] 06-12-2023 23:05-0500 Diastolic blood pressure 74 mm[Hg] [facility] 06-12-2023 23:05-0500 Heart rate 78 /min [facility] 06-12-2023 23:05-0500 Respiratory rate 16 /min [facility] 06-12-2023 23:05-0500 SaO2% (BldA) [Mass fraction] 97 % [facility] 06-12-2023 23:05-0500 Systolic blood pressure 157 mm[Hg] [facility] 06-12-2023 19:17-0500 Body height 167.64 cm [facility] 06-12-2023 19:17-0500 Body mass index (BMI) [Ratio] 35.6 kg/m2 [facility] 06-12-2023 19:17-0500 Body temperature 97.1 [degF] [facility] 06-12-2023 19:17-0500 Body weight 100.3 kg [facility] 05-14-2023 10:54-0500 Body temperature 98.71 [degF] Guillaume Dominguez MD Work Phone: [facility] 05-14-2023 10:54-0500 Body weight 96.62 kg Guillaume Dominguez MD Work Phone: [facility] 05-14-2023 10:54-0500 Diastolic blood pressure 68 mm[Hg] Guillaume Oliver Work Phone: [facility] 05-14-2023 10:54-0500 Heart rate 74 /min Guillaume Dominguez MD Work Phone: [facility] 05-14-2023 10:54-0500 Respiratory rate 18 /min Guillaume Dominguez MD Work Phone: [facility] 12-15-2023 10:54-0500 SaO2% (BldA) [Mass fraction] 97 % Guillaume Dominguez MD Work Phone: [facility] 05-14-2023 10:54-0500 Systolic blood pressure 110 mm[Hg] Guillaume Dominguez MD Work Phone: [facility] 02-26-2023 19:30-0400 Diastolic blood pressure 98 mm[Hg] [facility] 02-26-2023 19:30-0400 Heart rate 71 /min [facility] 02-26-2023 19:30-0400 Respiratory rate 16 /min [facility] 02-26-2023 19:30-0400 SaO2% (BldA) [Mass fraction] 95 % [facility] 02-26-2023 19:30-0400 Systolic blood pressure 116 mm[Hg] [facility] 02-26-2023 17:33-0400 Body height 167.64 cm [facility] 02-26-2023 17:33-0400 Body mass index (BMI) [Ratio] 33 kg/m2 [facility] 02-26-2023 17:33-0400 Body temperature 96.9 [degF] [facility] 02-26-2023 17:33-0400 Body weight 93 kg [facility] 02-04-2023 13:43-0400 Diastolic blood pressure 80 mm[Hg] Mi Nurse Work Phone: [facility] 02-04-2023 13:43-0400 Heart rate 74 /min Mi Nurse Work Phone: [facility] 02-04-2023 13:43-0400 Systolic blood pressure 131 mm[Hg] Mi Nurse Work Phone: [facility] 02-02-2023 10:57-0400 Diastolic blood pressure 60 mm[Hg] Josefa Caputo CORD MAKER.CONSULTING SERVICES ASSOCIATE Work Phone: [facility] 02-02-2023 10:57-0400 Heart rate 102 /min Josefa Caputo CORD MAKER.CONSULTING SERVICES ASSOCIATE Work Phone: [facility] 02-02-2023 10:57-0400 SaO2% (BldA) [Mass fraction] 98 % Josefa Caputo CORD MAKER.CONSULTING SERVICES ASSOCIATE Work Phone: [facility] 02-02-2023 10:57-0400 Systolic blood pressure 80 mm[Hg] Josefa Caputo APRN.CONSULTING SERVICES ASSOCIATE Work Phone: [facility] 01-11-2023 08:43-0400 Body height 162.6 cm Maykel Whitfield DO Work Phone: [facility] 01-11-2023 08:43-0400 Body weight 95.84 kg Maykel Whitfield DO Work Phone: [facility] 01-11-2023 08:43-0400 Diastolic blood pressure 58 mm[Hg] Maykel Dionne hunt DO Work Phone: [facility] 01-11-2023 08:43-0400 Heart rate 77 /min Maykel Whitfield DO Work Phone: [facility] 01-11-2023 08:43-0400 SaO2% (BldA) [Mass fraction] 98 % Maykel Whitfield DO Work Phone: [facility] 01-11-2023 08:43-0400 Systolic blood pressure 96 mm[Hg] Maykel Glory no DO Work Phone: [facility] 12-30-2022 09:45-0400 Body weight 97.61 kg Curtis Nassar MD Work Phone: [facility] 12-30-2022 09:45-0400 Diastolic blood pressure 85 mm[Hg] Curtis Oliver Work Phone: [facility] 12-30-2022 09:45-0400 Heart rate 80 /min Curtis Nassar MD Work Phone: [facility] 12-30-2022 09:45-0400 Systolic blood pressure 147 mm[Hg] Curtis Nassar MD Work Phone: [facility] 10-27-2022 13:34-0400 Diastolic blood pressure 78 mm[Hg] Josefa Caputo CORD MAKER.CONSULTING SERVICES ASSOCIATE Work Phone: [facility] 10-27-2022 13:34-0400 Systolic blood pressure 116 mm[Hg] Josefa Flynn CORD MAKER.CONSULTING SERVICES ASSOCIATE Work Phone: [facility] 10-27-2022 13:08-0400 Heart rate 86 /min Josefa Flynn CORD MAKER.CONSULTING SERVICES ASSOCIATE Work Phone: [facility] 10-27-2022 13:08-0400 SaO2% (BldA) [Mass fraction] 96 % Josefa Flynn CORD MAKER.CONSULTING SERVICES ASSOCIATE Work Phone: [facility] 09-14-2022 10:33-0400 Heart rate 77 /min Moraima Montelongo MD Work Phone: [facility] 09-14-2022 10:33-0400 SaO2% (BldA) [Mass fraction] 97 % Moraima Montelongo MD Work Phone: [facility] 08-15-2022 11:28-0400 Body weight 108.86 kg Guillaume Dominguez MD Work Phone: [facility] 08-15-2022 11:28-0400 Diastolic blood pressure 72 mm[Hg] Guillaume Oliver Work Phone: [facility] 08-15-2022 11:28-0400 Heart rate 101 /min Guillaume Dominguez MD Work Phone: [facility] 08-15-2022 11:28-0400 Respiratory rate 20 /min Guillaume Dominguez MD Work Phone: [facility] 08-15-2022 11:28-0400 SaO2% (BldA) [Mass fraction] 99 % Guillaume Dominguez MD Work Phone: [facility] 08-15-2022 11:28-0400 Systolic blood pressure 126 mm[Hg] Guillaume Dominguez MD Work Phone: [facility] 07-07-2022 10:52-0500 Body temperature 96.4 [degF] Guillaume Dominguez MD Work Phone: [facility] 07-07-2022 10:52-0500 Body weight 106.59 kg Guillaume Dominguez MD Work Phone: [facility] 07-07-2022 10:52-0500 Diastolic blood pressure 78 mm[Hg] Guillaume Oliver Work Phone: [facility] 07-07-2022 10:52-0500 Heart rate 61 /min Guillaume Dominguez MD Work Phone: [facility] 07-07-2022 10:52-0500 Respiratory rate 18 /min Guillaume Dominguez MD Work Phone: [facility] 07-07-2022 10:52-0500 SaO2% (BldA) [Mass fraction] 95 % Guillaume Dominguez MD Work Phone: [facility] 07-07-2022 10:52-0500 Systolic blood pressure 118 mm[Hg] Guillaume Dominguez MD Work Phone: [facility] 06-11-2022 11:21-0500 Body height 167.6 cm Maykel Patel Jr., MD Work Phone: [facility] 06-11-2022 11:21-0500 Body weight 108.86 kg Maykel Patel Jr., MD Work Phone: [facility] 06-11-2022 11:21-0500 Diastolic blood pressure 69 mm[Hg] Maykel Patel Jr., MD Work Phone: [facility] 06-11-2022 11:21-0500 Systolic blood pressure 122 mm[Hg] Maykel Patel Jr., MD Work Phone: [facility] 05-12-2022 17:18-0500 Body weight 109.32 kg Guillaume Dominguez MD Work Phone: [facility] 05-12-2022 17:18-0500 Diastolic blood pressure 72 mm[Hg] Guillaume Oliver Work Phone: [facility] 05-12-2022 17:18-0500 Heart rate 78 /min Guillaume Dominguez MD Work Phone: [facility] 05-12-2022 17:18-0500 SaO2% (BldA) [Mass fraction] 100 % Guillaume Dominguez MD Work Phone: [facility] 05-12-2022 17:18-0500 Systolic blood pressure 118 mm[Hg] Guillaume Dominguez MD Work Phone: [facility] 05-06-2022 15:42-0500 Body temperature 98.29 [degF] Janae Praisler-Wood CORD MAKER.CONSULTING SERVICES ASSOCIATE Work Phone: [facility] 05-06-2022 15:42-0500 Body weight 111.77 kg Janae Praisler-Wood CORD MAKER.CONSULTING SERVICES ASSOCIATE Work Phone: [facility] 05-06-2022 15:42-0500 Diastolic blood pressure 78 mm[Hg] Janae Praisler-Wood CORD MAKER.CONSULTING SERVICES ASSOCIATE Work Phone: [facility] 05-06-2022 15:42-0500 Heart rate 105 /min Janae Praisler-Wood CORD MAKER.CONSULTING SERVICES ASSOCIATE Work Phone: [facility] 05-06-2022 15:42-0500 Respiratory rate 30 /min Janae Praisler-Wood CORD MAKER.CONSULTING SERVICES ASSOCIATE Work Phone: [facility] 05-06-2022 15:42-0500 SaO2% (BldA) [Mass fraction] 98 % Janae Praisler-Wood CORD MAKER.CONSULTING SERVICES ASSOCIATE Work Phone: [facility] 05-06-2022 15:42-0500 Systolic blood pressure 110 mm[Hg] Janae Praisler-Wood CORD MAKER.CONSULTING SERVICES ASSOCIATE Work Phone: [facility] 04-28-2022 09:40-0500 Body height 165.1 cm Respiratory Wstr Work Phone: [facility] 04-28-2022 09:40-0500 Body weight 112.04 kg Respiratory Wstr Work Phone: [facility] 04-28-2022 09:40-0500 Heart rate 62 /min Respiratory Wstr Work Phone: [facility] 04-28-2022 09:40-0500 Respiratory rate 16 /min Respiratory Wstr Work Phone: [facility] 04-28-2022 09:40-0500 SaO2% (BldA) [Mass fraction] 97 % Respiratory Wstr Work Phone: [facility] 04-27-2022 13:37-0500 Body weight 112.04 kg Guillaume Dominguez MD Work Phone: [facility] 04-27-2022 13:37-0500 Diastolic blood pressure 82 mm[Hg] Guillaume Oliver Work Phone: [facility] 04-27-2022 13:37-0500 Heart rate 88 /min Guillaume Dominguez MD Work Phone: [facility] 04-27-2022 13:37-0500 SaO2% (BldA) [Mass fraction] 97 % Guillaume Dominguez MD Work Phone: [facility] 04-27-2022 13:37-0500 Systolic blood pressure 138 mm[Hg] Guillaume Dominguez MD Work Phone: [facility] 03-11-2022 09:17-0400 Body height 167.6 cm Oralia Garcia CORD MAKER.CONSULTING SERVICES ASSOCIATE Work Phone: [facility] 03-11-2022 09:17-0400 Body weight 112.63 kg Oralia Garcia CORD MAKER.CONSULTING SERVICES ASSOCIATE Work Phone: [facility] 03-11-2022 09:17-0400 Heart rate 92 /min Oralia Garcia CORD MAKER.CONSULTING SERVICES ASSOCIATE Work Phone: [facility] 03-11-2022 09:17-0400 SaO2% (BldA) [Mass fraction] 96 % Oralia Garcia CORD MAKER.CONSULTING SERVICES ASSOCIATE Work Phone: [facility] 03-04-2022 15:19-0400 Diastolic blood pressure 77 mm[Hg] Radha Walters MD Work Phone: [facility] 03-04-2022 15:19-0400 Heart rate 103 /min Radha Walters MD Work Phone: [facility] 03-04-2022 15:19-0400 Respiratory rate 18 /min Radha Walters MD Work Phone: [facility] 03-04-2022 15:19-0400 SaO2% (BldA) [Mass fraction] 96 % Radha Walters MD Work Phone: [facility] 03-04-2022 15:19-0400 Systolic blood pressure 107 mm[Hg] Radha Oliver Work Phone: [facility] 02-28-2022 08:37-0400 Diastolic blood pressure 83 mm[Hg] [facility] Work Phone: 02-28-2022 08:37-0400 Heart rate 75 /min [facility] Work Phone: 02-28-2022 08:37-0400 Respiratory rate 18 /min [facility] Work Phone: 02-28-2022 08:37-0400 SaO2% (BldA) [Mass fraction] 95 % [facility] Work Phone: 02-28-2022 08:37-0400 Systolic blood pressure 143 mm[Hg] [facility] Work Phone: 02-28-2022 05:36-0400 Body height 167.64 cm [facility] Work Phone: 02-28-2022 05:36-0400 Body mass index (BMI) [Ratio] 39.8 kg/m2 [facility] Work Phone: 02-28-2022 05:36-0400 Body temperature 98.6 [degF] [facility] Work Phone: 02-28-2022 05:36-0400 Body weight 111.9 kg [facility] Work Phone: 02-21-2022 02:46-0400 Diastolic blood pressure 73 mm[Hg] [facility] Work Phone: 02-21-2022 02:46-0400 Heart rate 75 /min [facility] Work Phone: 02-21-2022 02:46-0400 SaO2% (BldA) [Mass fraction] 97 % [facility] Work Phone: 02-21-2022 02:46-0400 Systolic blood pressure 94 mm[Hg] [facility] Work Phone: 02-21-2022 01:15-0400 Respiratory rate 22 /min [facility] Work Phone: 02-21-2022 01:08-0400 Body height 167.64 cm [facility] Work Phone: 02-21-2022 01:08-0400 Body mass index (BMI) [Ratio] 40 kg/m2 [facility] Work Phone: 02-21-2022 01:08-0400 Body temperature 96.7 [degF] [facility] Work Phone: 02-21-2022 01:08-0400 Body weight 112.6 kg [facility] Work Phone: 02-16-2022 20:55-0400 Respiratory rate 16 /min [facility] Work Phone: 02-16-2022 16:44-0400 Body height 167.64 cm [facility] Work Phone: 02-16-2022 16:44-0400 Body mass index (BMI) [Ratio] 39.6 kg/m2 [facility] Work Phone: 02-16-2022 16:44-0400 Body temperature 96.9 [degF] [facility] Work Phone: 02-16-2022 16:44-0400 Body weight 111.58 kg [facility] Work Phone: 02-16-2022 16:44-0400 Diastolic blood pressure 116 mm[Hg] [facility] Work Phone: 02-16-2022 16:44-0400 Heart rate 78 /min [facility] Work Phone: 02-16-2022 16:44-0400 SaO2% (BldA) [Mass fraction] 98 % [facility] Work Phone: 02-16-2022 16:44-0400 Systolic blood pressure 167 mm[Hg] [facility] Work Phone: 02-10-2022 14:58-0400 Body height 165.1 cm Guillaume Dominguez MD Work Phone: [facility] 02-10-2022 14:58-0400 Body weight 111.58 kg Guillaume Dominguez MD Work Phone: [facility] 02-10-2022 14:58-0400 Diastolic blood pressure 68 mm[Hg] Guillaume Oliver Work Phone: [facility] 02-10-2022 14:58-0400 Heart rate 82 /min Guillaume Dominguez MD Work Phone: [facility] 02-10-2022 14:58-0400 Systolic blood pressure 112 mm[Hg] Guillaume Dominguez MD Work Phone: [facility] 01-19-2022 14:43-0400 Body temperature 98.71 [degF] Comfort Patterson CORD MAKER.PLANT CONTROL AIDE Work Phone: [facility] 01-19-2022 14:43-0400 Body weight 112.49 kg Comfort Patterson CORD MAKER.PLANT CONTROL AIDE Work Phone: [facility] 01-19-2022 14:43-0400 Diastolic blood pressure 64 mm[Hg] Comfort Patterson CORD MAKER.PLANT CONTROL AIDE Work Phone: [facility] 01-19-2022 14:43-0400 Heart rate 72 /min Comfort Patterson CORD MAKER.PLANT CONTROL AIDE Work Phone: [facility] 01-19-2022 14:43-0400 Respiratory rate 24 /min Comfort Patterson CORD MAKER.PLANT CONTROL AIDE Work Phone: [facility] 01-19-2022 14:43-0400 SaO2% (BldA) [Mass fraction] 97 % Comfort Patterson CORD MAKER.PLANT CONTROL AIDE Work Phone: [facility] 01-19-2022 14:43-0400 Systolic blood pressure 112 mm[Hg] Comfort Patterson CORD MAKER.PLANT CONTROL AIDE Work Phone: [facility] 12-17-2021 14:14-0400 Body temperature 96.69 [degF] Sasha Xavi CORD MAKER.CONSULTING SERVICES ASSOCIATE Work Phone: [facility] 12-17-2021 14:14-0400 Body weight 114.49 kg Sasha Xavi CORD MAKER.CONSULTING SERVICES ASSOCIATE Work Phone: [facility] 12-17-2021 14:14-0400 Diastolic blood pressure 82 mm[Hg] Sasha Xavi CORD MAKER.CONSULTING SERVICES ASSOCIATE Work Phone: [facility] 12-17-2021 14:14-0400 Heart rate 90 /min Sasha Xavi CORD MAKER.CONSULTING SERVICES ASSOCIATE Work Phone: [facility] 12-17-2021 14:14-0400 Respiratory rate 20 /min Sasha Xavi CORD MAKER.CONSULTING SERVICES ASSOCIATE Work Phone: [facility] 12-17-2021 14:14-0400 SaO2% (BldA) [Mass fraction] 97 % Sasha Xavi CORD MAKER.CONSULTING SERVICES ASSOCIATE Work Phone: [facility] 12-17-2021 14:14-0400 Systolic blood pressure 130 mm[Hg] Sasha Xavi CORD MAKER.CONSULTING SERVICES ASSOCIATE Work Phone: [facility] 11-03-2021 10:33-0400 Body height 167.6 cm Gamaliel Alegre MD Work Phone: [facility] 11-03-2021 10:33-0400 Body weight 113.63 kg Gamaliel Alegre MD Work Phone: [facility] 11-03-2021 10:33-0400 Diastolic blood pressure 86 mm[Hg] Gamaliel Leonard i, MD Work Phone: [facility] 11-03-2021 10:33-0400 Heart rate 81 /min Gamaliel Alegre MD Work Phone: [facility] 11-03-2021 10:33-0400 SaO2% (BldA) [Mass fraction] 98 % Gamaliel Alegre MD Work Phone: [facility] 11-03-2021 10:33-0400 Systolic blood pressure 124 mm[Hg] Gamaliel Alegre MD Work Phone: [facility] 10-03-2021 14:32-0400 Body weight 112.95 kg Iban Soto MD Work Phone: [facility] 10-03-2021 14:32-0400 Diastolic blood pressure 68 mm[Hg] Iban Soto MD Work Phone: [facility] 10-03-2021 14:32-0400 Heart rate 60 /min Iban Soto MD Work Phone: [facility] 10-03-2021 14:32-0400 Respiratory rate 20 /min Iban Soto MD Work Phone: [facility] 10-03-2021 14:32-0400 SaO2% (BldA) [Mass fraction] 96 % Iban Soto MD Work Phone: [facility] 10-03-2021 14:32-0400 Systolic blood pressure 126 mm[Hg] Iban Soto MD Work Phone: [facility] 08-22-2021 14:29-0400 Body weight 114.76 kg Curtis Nassar MD Work Phone: [facility] 08-22-2021 14:29-0400 Diastolic blood pressure 74 mm[Hg] Curtis Oliver Work Phone: [facility] 08-22-2021 14:29-0400 Heart rate 55 /min Curtis Nassar MD Work Phone: [facility] 08-22-2021 14:29-0400 Systolic blood pressure 112 mm[Hg] Curtis Nassar MD Work Phone: [facility] Encounters Encounter Date Encounter Type Care Provider Facility Start: 12-25-2024 End: 12-25-2024 Telephone encounter Radha Walters MD Work Phone: Dermatology Comment on above: Patient Update Start: 12-19-2024 ambulatory Deep BABCOCK Facili ty:[facility] Start: 11-03-2024 ambulatory Deep BABCOCK Facili ty:[facility] Start: 10-31-2024 ambulatory Deep BABCOCK Facili ty:[facility] Start: 10-31-2024 Registered Referred Deep Dela Cruz MD [facility] Start: 10-26-2024 ambulatory Deep BABCOCK Facili ty:[facility] Start: 10-26-2024 Registered Referred Deep Dela Cruz MD -[facility] Start: 09-26-2024 End: 09-26-[address] Guillaume Dominguez MD Work Phone: [facility] Work Phone: Start: 09-26-2024 End: 09-26-2024 Departed Referred Deep Dela Cruz MD -[facility] Start: 09-26-2024 Registered Referred Deep Dela Cruz MD -[facility] Start: 09-26-2024 End: 09-26-2024 ambulatory Deep BABCOCK Facility:[facility] Start: 09-21-2024 End: 09-21-[address] Guillaume Dominguez MD Work Phone: [facility] Work Phone: Start: 09-21-2024 End: 09-21-2024 Departed Referred Deep Dela Cruz MD -[facility] Start: 09-21-2024 End: 09-21-2024 ambulatory Deep BABCOCK Facility:[facility] Start: 09-18-2024 End: 09-18-2024 ambulatory Guillaume Dominguez MD Work Phone: [facility] Start: 09-18-2024 End: 09-18-2024 Patient encounter procedure Guillaume Dominguez MD Work Phone: [facility] Comment on above: Population Health Na vigation Outreach ([facility] ) Start: 09-11-2024 End: 09-11-2024 Departed Referred Deep Dela Cruz MD -[facility] Start: 09-11-2024 Registered Referred Deep Dela Cruz MD -[facility] Start: 09-11-2024 End: 09-11-2024 ambulatory Deep BABCOCK Facility:[facility] Start: 08-17-2024 End: 08-17-2024 ambulatory [facility] Start: 08-17-2024 End: 08-17-2024 Patient encounter procedure Guillaume Dominguez MD Work Phone: [facility] Comment on above: Population Health Na vigation Outreach ([facility] ) Start: 08-11-2024 End: 08-11-[address] Guillaume Dominguez MD Work Phone: [facility] Work Phone: Start: 08-11-2024 End: 08-11-2024 [facility] Start: 08-11-2024 Registered Referred Deep [facility] Start: 08-11-2024 End: 08-11-2024 ambulatory Deep BABCOCK Facility:[facility] Start: 08-09-2024 End: 08-16-2024 Telephone encounter Adina Lay APRN.CNP Work Phone: [facility] Comment on above: Medication Dosage Ad justment Start: 08-08-2024 End: 08-08-[address] 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, subsequent encounter (Primary Dx) Start: 08-03-2024 End: 08-03-2024 ambulatory TIKA JONES Facility:[facility] Start: 08-02-2024 End: 08-02-2024 [facility] Start: 08-02-2024 End: 08-02-2024 Subsequent hospital visit by physician Tika Jones MD Work Phone: [facility] Comment on above: Nontraumatic intracr anial hemorrhage, unspecified (HCC) Start: 08-01-2024 End: 10-31-2024 Telephone encounter Tika Jones MD Work Phone: [facility] Comment on above: 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 Intracranial hemorrh age (HCC) (Primary Dx) Nontraumatic intracr anial hemorrhage, unspecified (HCC) (Primary Dx) Start: 07-25-2024 ambulatory Deep BABCOCK Facili ty:[facility] Start: 07-25-2024 Registered Referred Deep Dela Cruz MD -[facility] Start: 07-10-2024 ambulatory Deep BABCOCK Facili ty:[facility] Start: 07-10-2024 Registered Referred Deep Dela Cruz MD -[facility] Start: 06-22-2024 End: 06-22-2024 Refill Rajiv Walker MD Work Phone: [facility] Comment on above: Refill Request Start: 06-20-2024 End: 06-20-2024 Departed Referred Deep Dela Cruz MD -[facility] Start: 06-20-2024 End: 06-20-2024 ambulatory Deep BABCOCK Facility:[facility] Start: 06-13-2024 End: 06-20-2024 Refill Rajiv Walker MD Work Phone: [facility] Comment on above: Refill Request Start: 06-09-2024 ambulatory Deep Flood ty:[facility] Start: 06-09-2024 Registered Referred Deep Dela Cruz MD -[facility] Start: 06-05-2024 ambulatory Deep BABCOCK Facili ty:[facility] Start: 06-05-2024 Registered Referred Deep Dela Cruz MD -[facility] Start: 05-29-2024 End: 05-29-2024 Telephone encounter Guillaume Dominguez MD Work Phone: [facility] Comment on above: [facility] requesting records Start: 05-29-2024 ambulatory Deep Dietzi ty:[facility] Start: 05-29-2024 Registered Referred Deep Dela Cruz MD -[facility] Start: 05-22-2024 End: 07-04-2024 Telephone encounter Guillaume Dominguez MD Work Phone: Internal Medicine [place] Comment on above: Faxed to [facility] Start: 05-22-2024 ambulatory Deep BABCOCK Facili ty:[facility] Start: 05-22-2024 Registered Referred Deep Dela Cruz MD -[facility] Start: 05-09-2024 End: 05-11-2024 Telephone encounter Adina Lay APRN.CONSULTING SERVICES ASSOCIATE Work Phone: [facility] Start: 05-06-2024 End: 05-06-2024 ambulatory Amanda Patterson APRN.CNP Work Phone: Critical Care Start: 05-06-2024 Emergency department patient visit GUILLAUME DOMINGUEZ Facility:[facility] Start: 05-05-2024 End: 05-06-2024 Emergency department patient visit Dr. Arden Leger MD -Emergency Department Work Phone: Start: 05-05-2024 End: 05-05-2024 Telemedicine consultation with patient Adina Lay GM.CONSULTING SERVICES ASSOCIATE Work Phone: [facility] [place] Start: 05-05-2024 End: 05-05-2024 ambulatory Adina Lay GM.CONSULTING SERVICES ASSOCIATE Work Phone: [facility] [place] Comment on above: Type 2 diabetes leonie [...] Guillaume Dominguez MD Work Phone: Internal Medicine [place] Comment on above: Pruritic condition ( Primary Dx); Anemia, unspecified type; Type 2 diabetes mellitus with peripheral neuropathy (HCC); Vitamin D deficiency; Vitamin B12 deficiency; Pedal edema; Dementia, unspecified dementia severity, unspecified dementia type, unspecified whether behavioral, psychotic, or mood disturbance or anxiety (HCC) Start: 04-28-2024 End: 04-28-2024 ambulatory GUILLAUME DOMINGUEZ Facility:[facility] Start: 04-25-2024 [facility] Facility[facility] Start: 04-14-2024 End: 04-14-2024 Telephone encounter Oralia Garcia APRN.CONSULTING SERVICES ASSOCIATE Work Phone: Pain Management Comment on above: Appointment Start: 03-30-2024 End: 03-30-2024 ambulatory MORAIMA MONTELONGO Facility:[facility] Start: 03-10-2024 End: 03-10-2024 Telephone encounter Moraima Montelongo MD Work Phone: Pain Management Comment on above: Cardiac Clearance (A nticoagulation ) Lumbar spondylosis ( Primary Dx); Spondylolisthesis of lumbar region; Radiculopathy, lumbar region Start: 03-10-2024 End: 03-10-2024 ambulatory ORALIA GARCIA Facility:[facility] Start: 03-10-2024 End: 03-10-2024 Patient encounter procedure Oralia Shea Pura CORD MAKER.CONSULTING SERVICES ASSOCIATE Work Phone: Pain Management Comment on above: Lumbar spondylosis ( Primary Dx); Radiculopathy, lumbar region Start: 03-10-2024 End: 03-10-2024 ambulatory [facility] Facility:[facility] Start: 02-09-2024 End: 02-09-2024 ambulatory Brooklyn Jaramillo OLS Facility:[facility] Start: 2024 ambulatory Moraima Montiel OLS Facili ty:[facility] Start: 01-28-2024 ambulatory [facility] Start: 01-13-2024 Telephone encounter Guillaume ventura MD Work Phone: Internal Medicine [place] Comment on above: requesting allergy l ist to be faxed to [facility] Start: 01-12-2024 ambulatory [facility] Start: 01-12-2024 End: 02-04-2024 Evaluation and management of inpatient Allan Chi Michael Facility:[facility] Start: 01-10-2024 ambulatory [facility] Start: 01-10-2024 End: 01-12-2024 Evaluation and management of inpatient [facility] Facility:[facility] Start: 01-10-2024 End: 01-10-2024 Office outpatient visit 15 minutes Comfort Patterson CORD MAKER.PLANT CONTROL AIDE Work Phone: Internal Medicine [place] Comment on above: UTI symptoms (Primar y Dx) Start: 01-10-2024 End: 01-10-2024 ambulatory COMFORT PATTERSON Facility:[facility] Start: 12-31-2023 Telephone encounter Josefa ramirez CORD MAKER.CONSULTING SERVICES ASSOCIATE Work Phone: Internal Medicine [place] Comment on above: Results Start: 12-27-2023 End: 12-27-2023 ambulatory JOSEFA CAPUTO Facility:[facility] Start: 12-27-2023 End: 12-27-2023 Subsequent hospital visit by physician La[facility] Work Phone: Radiology Comment on above: Acute pain of right knee [M25.561] Start: 12-24-2023 End: 12-24-2023 Patient encounter procedure Josefa Caputo APRN.CONSULTING SERVICES ASSOCIATE Work Phone: Internal Medicine [place] Comment on above: Acute pain of right knee (Primary Dx) Start: 12-21-2023 Refill Guillaume abarca MD Work Phone: Internal Medicine [place] Comment on above: Refill Request Start: 12-10-2023 End: 12-10-2023 Office outpatient visit [...] Guillaume ventura MD Work Phone: Internal Medicine [place] Comment on above: Patient Update; Medi cation Problem Start: 11-05-2023 ambulatory Radha Walters MD Work Phone: Dermatology Comment on above: Medical necessity Start: 10-29-2023 End: 10-29-2023 Patient encounter procedure Curtis Nassar MD Work Phone: [facility] [place] Comment on above: Type 2 diabetes leonie itus with peripheral neuropathy (HCC) (Primary Dx) Start: 10-28-2023 Refill Guillaume abarca MD Work Phone: Internal Medicine [place] Comment on above: Refill Request Start: 10-11-2023 End: 10-11-2023 Office outpatient visit 25 minutes Comfort Patterson APRN.CNS Work Phone: Internal Medicine [place] Comment on above: 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, without long-term current use of insulin (HCC) (Primary Dx); Mixed hyperlipidemia; Class 3 severe obesity due to excess calories with serious comorbidity and body mass index (BMI) of 40.0 to 44.9 in adult (HCC); Other specified glaucoma, unspecified laterality; Pernicious anemia; Lumbar spondylosis; Lumbar degenerative disc disease; Carotid artery stenosis without cerebral infarction, bilateral Start: 10-07-2023 Telephone encounter Rajiv domingo MD Work Phone: [facility] Comment on above: Medication Problem Start: 10-04-2023 End: 10-04-2023 Nursing evaluation of patient and report Mi Nurse Work Phone: Family [facility] [place] Comment on above: Pernicious anemia (P rimary Dx) Start: 09-28-2023 Telephone encounter Rajiv domingo MD Work Phone: [facility] Comment on above: Medication Problem Start: 09-17-2023 Refill Guillaume abarca MD Work Phone: Internal Medicine [place] Comment on above: Refill Request Start: 09-06-2023 End: 09-06-2023 Nursing evaluation of patient and report Mi Nurse Work Phone: Family [facility] [place] Comment on above: Pernicious anemia (P rimary Dx) Start: 08-16-2023 Telephone encounter Josefa ramirez APRN.CONSULTING SERVICES ASSOCIATE Work Phone: Internal Medicine [place] Comment on above: Orders Medication Problem Start: 08-13-2023 Telephone encounter Guillaume ventura MD Work Phone: Internal Medicine [place] Comment on above: Insurance Authorizat ion PA required Start: 08-13-2023 End: 08-13-2023 Patient encounter procedure Josefa Caputo CORD MAKER.CONSULTING SERVICES ASSOCIATE Work Phone: Internal Medicine [place] Comment on above: Current moderate epi sode of major depressive disorder, unspecified whether recurrent (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 Start: 07-21-2023 End: 07-21-2023 Subsequent hospital visit by physician Diagnostic Mammo [facility] W[facility] Mammogram Start: 07-08-2023 End: 07-08-2023 Patient encounter procedure Rajiv Walker MD Work Phone: [facility]in[facility] [place] Comment on above: 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, without long-term current use of insulin (HCC) (Primary Dx); Class 1 obesity due to excess calories with serious comorbidity and body mass index (BMI) of 34.0 to 34.9 in adult Start: 07-07-2023 Telephone encounter Guillaume ventura MD Work Phone: Internal Medicine [place] Comment on above: Abnormal mammogram l nikki Mammogram Result [place] l Back Start: 06-25-2023 End: 06-25-2023 Office outpatient visit 25 minutes Nhi De La Torre APRN.CONSULTING SERVICES ASSOCIATE Work Phone: Cardiology Comment on above: Dyspnea on exertion (Primary Dx); Premature atrial complexes; Type 2 diabetes mellitus with peripheral neuropathy (HCC); Multiple subsegmental pulmonary emboli without acute cor pulmonale (HCC); ASIM (obstructive sleep apnea) Start: 06-12-2023 End: 06-12-2023 Emergency department patient visit [facility]Emergency Department Work Phone: Start: 05-14-2023 End: 05-14-2023 Office outpatient visit 25 minutes Guillaume Dominguez MD Work Phone: Internal Medicine [place] Comment on above: Memory difficulties (Primary Dx); Vitamin D deficiency; Chronic cough; Type 2 diabetes mellitus with peripheral neuropathy (HCC); Breast cancer screening by mammogram; Encounter for immunization Start: 05-04-2023 End: 05-04-2023 Nursing evaluation of patient and report Mi Nurse Work Phone: Family [facility] Comment on above: Pernicious anemia (P rimary Dx) Start: 03-30-2023 End: 03-30-2023 ambulatory Curtis Nassar MD Work Phone: [facility] Comment on above: Type 2 diabetes leonie itus with peripheral neuropathy (HCC) (Primary Dx) Start: 03-30-2023 End: 03-30-2023 Telemedicine consultation with patient Curtis Nassar MD Work Phone: [facility] Start: 03-18-2023 Refill Josefa Caputo APRN.CONSULTING SERVICES ASSOCIATE Work Phone: Internal Medicine [place] Comment on above: Refill Request Start: 03-04-2023 End: 03-04-2023 Nursing evaluation of patient and report Mi Nurse Work Phone: [facility] Comment on above: Pernicious anemia (P rimary Dx) Start: 02-26-2023 End: 02-26-2023 [facility] Start: 02-19-2023 Refill Guillaume abarca MD Work Phone: Internal [facility] Comment on above: Refill Request Start: 02-04-2023 End: 02-04-2023 Nursing evaluation of patient and report Mi Nurse Work Phone: [facility] Comment on above: Pernicious anemia (P rimary Dx) Start: 02-02-2023 Telephone encounter Josefa ramirez APRN.CONSULTING SERVICES ASSOCIATE Work Phone: [facility] Comment on above: Orders Start: 02-02-2023 End: 02-02-2023 Patient encounter procedure Josefa Caputo APRN.CONSULTING SERVICES ASSOCIATE Work Phone: Internal Medicine [place] Comment on above: Hypotension due to d rugs (Primary Dx); Chronic fatigue; Memory deficit; Obesity, Class II, BMI 35-39.9; Need for influenza vaccination; Encounter for therapeutic drug monitoring; Type 2 diabetes mellitus with peripheral neuropathy (HCC); Mixed hyperlipidemia Start: 01-28-2023 End: 01-28-2023 Subsequent hospital visit by physician [facility] Work Phone: Cardiology Lab Comment on above: Irregular heart rhyt hm [I49.9] Start: 01-27-2023 Telephone encounter Jo-Ann abarca hand [facility] Comment on above: Reminder Call Start: 01-13-2023 Telephone encounter Guillaume ventura MD Work Phone: Internal Medicine [place] Comment on above: Forms Start: 01-11-2023 End: 01-11-2023 Patient encounter procedure Maykel Whitfield DO Work Phone: Cardiology Comment on above: FIELD (dyspnea on exer tion) (Primary Dx); Irregular heart rhythm; Premature atrial complexes; PAC (premature atrial contraction); Mixed hyperlipidemia; Carotid artery stenosis without cerebral infarction, bilateral; Type 2 diabetes mellitus with peripheral neuropathy (HCC); Atypical chest pain Start: 01-05-2023 Telephone encounter Curtis landin MD Work Phone: [facility] Comment on above: Medication Problem Start: 01-04-2023 End: 01-04-2023 Nursing evaluation of patient and report Mi Nurse Work Phone: [facility] Comment on above: Pernicious anemia (P rimary Dx) Start: 12-30-2022 End: 12-30-2022 Patient encounter procedure Curtis Nassar MD Work Phone: [facility] Comment on above: DM (diabetes mellitu s), type 2 with neurological complications (HCC) (Primary Dx); Type 2 diabetes mellitus with peripheral neuropathy (HCC) Start: 12-25-2022 Telephone encounter Moraima allen MD Work Phone: Pain Management Comment on above: Patient Question Start: 12-04-2022 Refill Guillaume abarca MD Work Phone: Internal Medicine [place] Start: 11-06-2022 End: 11-06-2022 ambulatory Nhi O'Kwame PT [facility] Physical [facility] Comment on above: Spinal stenosis of l umbar region, unspecified whether neurogenic claudication present (Primary Dx); Lumbar spondylosis; Spondylolisthesis of lumbar region; Radiculopathy, lumbar region Start: 11-03-2022 End: 11-03-2022 Nursing evaluation of patient and report Mi Nurse Work Phone: [facility] Comment on above: Pernicious anemia (P rimary Dx) Start: 10-27-2022 Telephone encounter Josefa ramirez CORD MAKER.CONSULTING SERVICES ASSOCIATE Work Phone: [facility] Comment on above: 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 Start: 10-27-2022 End: 10-27-2022 Patient encounter procedure Josefa Caputo CORD MAKER.CONSULTING SERVICES ASSOCIATE Work Phone: [facility] Comment on above: Current moderate epi sode of major depressive disorder, unspecified whether recurrent (HCC) (Primary Dx); Anxiety disorder, unspecified type; Radiculopathy, lumbar region; Chronic SI joint pain; Single subsegmental pulmonary embolism without acute cor pulmonale (HCC); Type 2 diabetes mellitus with peripheral neuropathy (HCC) Start: 10-12-2022 End: 10-12-2022 ambulatory Nhi O'Kwame PT [facility] Comment on above: Spinal stenosis of l umbar region, unspecified whether neurogenic claudication present (Primary Dx); Lumbar spondylosis; Spondylolisthesis of lumbar region; Radiculopathy, lumbar region Refill Request Start: 10-02-2022 Telephone encounter Moraima allen MD Work Phone: Pain Management Comment on above: Anticoagulation Start: 09-29-2022 End: 09-29-2022 Nursing evaluation of patient and report Mi Nurse Work Phone: [facility] Comment on above: Pernicious anemia (P rimary Dx) Start: 09-25-2022 Refill Curtis allen MD Work Phone: [facility] Comment on above: Refill Request Start: 09-23-2022 End: 09-23-2022 Refill Guillaume Dominguez MD Work Phone: Internal Medicine [place] Comment on above: Refill Request Kidney stone [...] Start: 09-10-2022 End: 09-10-2022 ambulatory Lucia Rojas ENGINEERING LEADER Work Phone: [facility] Comment on above: Spinal stenosis of l umbar region, unspecified whether neurogenic claudication present (Primary Dx); Lumbar spondylosis; Spondylolisthesis of lumbar region; Radiculopathy, lumbar region Start: 09-03-2022 End: 09-03-2022 ambulatory Veda Vital PT Work Phone: [facility] Comment on above: Spinal stenosis of l umbar region, unspecified whether neurogenic claudication present (Primary Dx); Lumbar spondylosis; Spondylolisthesis of lumbar region; Radiculopathy, lumbar region Start: 09-01-2022 End: 09-01-2022 Nursing evaluation of patient and report Mi Nurse Work Phone: [facility] Medicine [place] Comment on above: Pernicious anemia (P rimary Dx) Start: 09-01-2022 End: 09-01-2022 ambulatory Veda Vital PT Work Phone: [facility] Comment on above: Spinal stenosis of l umbar region, unspecified whether neurogenic claudication present (Primary Dx); Lumbar spondylosis; Spondylolisthesis of lumbar region; Radiculopathy, lumbar region Start: 08-24-2022 Telephone encounter Guillaume ventura MD Work Phone: Internal Medicine [place] Comment on above: Patient Question Patient Update; Appo intment Start: 08-18-2022 End: 08-18-2022 ambulatory Vedashelley SaldanaVital PT Work Phone: [facility] Comment on above: Spinal stenosis of l umbar region, unspecified whether neurogenic claudication present; Lumbar spondylosis; Radiculopathy, lumbar region; Spondylolisthesis of lumbar region Start: 08-15-2022 End: 08-15-2022 Office outpatient visit 40 minutes Guillaume Dominguez MD Work Phone: Internal Medicine [place] Comment on above: Irregular heart rhyt hm (Primary Dx); FIELD (dyspnea on exertion); Bilateral carotid artery stenosis; Premature atrial complexes; Dietary iron deficiency without anemia; Vitamin D deficiency; Elevated ferritin; B12 deficiency; Other fatigue Start: 08-12-2022 Telephone encounter Guillaume ventura MD Work Phone: Internal Medicine [place] Comment on above: referral request; Op ened In Error Referral Request; Pa carnt Update Start: 08-07-2022 Refill Curtis allen MD Work Phone: Endocrinology [place] Comment on above: Refill Request Start: 08-04-2022 End: 08-04-2022 Nursing evaluation of patient and report Ri Nurse Work Phone: Family Medicine [place] Comment on above: Pernicious anemia (P rimary Dx) Start: 08-03-2022 Telephone encounter Guillaume ventura MD Work Phone: Internal Medicine [place] Comment on above: handicap prescriptio n Start: [...] Phone: Internal Medicine [place] Comment on above: Spondylolisthesis of lumbar region; Open compression fracture of L1 lumbar vertebra with routine healing, subsequent encounter; Anxiety disorder, unspecified type Start: 06-30-2022 Telephone encounter Guillaume ventura MD Work Phone: Internal Medicine [place] Comment on above: back pain persisting (Recommendations/) Start: 06-23-2022 Telephone encounter Moraima allen MD Work Phone: Pain Management Comment on above: Patient Question Start: 06-18-2022 Telephone encounter Guillaume ventura MD Work Phone: Internal Medicine [place] Comment on above: Patient Update Start: 06-17-2022 Telephone encounter Curtis landin MD Work Phone: [facility] Comment on above: Medication Question Start: [...] End: 05-06-2022 Subsequent hospital visit by physician Xr [facility] [place] Work Phone: Radiology Comment on above: Crushing injury of r ight middle finger, initial encounter [S67.192A] Start: 05-06-2022 End: 05-06-2022 Patient encounter procedure Janae Sandoval APRN.CNP Work Phone: [facility] Comment on above: Crushing injury of r ight middle finger, initial encounter (Primary Dx); Open fracture of tuft of distal phalanx of finger; Nausea Start: 05-06-2022 ambulatory Guillaume abarca MD Work Phone: Internal Medicine [place] Comment on above: Finger Injury Start: 05-04-2022 [...] Start: 04-28-2022 End: 04-28-2022 ambulatory Respiratory Therapist [facility] Work Phone: Pulmonary Medicine Comment on above: Spirometry Start: 04-28-2022 End: 04-28-2022 Patient encounter procedure Respiratory Therapist [facility] Work Phone: [facility] Start: 04-27-2022 End: 04-27-2022 Office outpatient visit 40 minutes Guillaume Dominguez MD Work Phone: Internal Medicine [place] Comment on above: FIELD (dyspnea on exer tion) (Primary Dx); Dietary iron deficiency without anemia; Grade I diastolic dysfunction; Chronic cough; Renal calculus, left; Primary hypertension; Hypoalbuminemia; DM (diabetes mellitus), type 2 with neurological complications ([facility]); B12 deficiency; Vitamin D deficiency; Irregular heart rhythm; Memory difficulty; Class 2 severe obesity due to excess calories with serious comorbidity and body mass index (BMI) of 39.0 to 39.9 in adult ([facility]); History of Jordin-en-Y gastric bypass Start: 04-09-2022 Telephone encounter Moraima allen MD Work Phone: Pain Management Comment on above: Patient Update; Appo intment Start: 04-08-2022 End: 04-08-2022 Subsequent hospital visit by physician Xr [facility] [place] Work Phone: Radiology Comment on above: Renal calculus, left [N20.0] Start: 04-06-2022 End: 04-06-2022 Nursing evaluation of patient and report Mi Nurse Work Phone: Family Medicine [place] Comment on above: Pernicious anemia (P rimary Dx) Start: 03-23-2022 Refill Curtis allen MD Work Phone: Endocrinology [place] Comment on above: Refill Request Start: 03-19-2022 Telephone encounter Radha sutherland MD Work Phone: Dermatology Comment on above: Patient Question Start: 03-12-2022 Orders Only Moraima Montelongo MD Work Phone: Pain Management Comment on above: Chronic left SI join t pain (Primary Dx); Sacroiliac joint pain Start: 03-11-2022 End: 03-11-2022 Patient encounter procedure Oralia Garcia CONSULTING SERVICES ASSOCIATE Work Phone: Pain Management Comment on above: [...] and report Mi Nurse Work Phone: Family [facility] Comment on above: Pernicious anemia (P rimary Dx); Need for vaccination Start: 02-28-2022 End: 02-28-2022 [facility] Start: 02-27-2022 Telephone encounter Moraima allen MD Work Phone: Pain Management Comment on above: Patient Update Start: 02-21-2022 End: 02-21-2022 [facility] Start: 02-16-2022 End: 02-16-2022 Emergency department patient visit [facility] Start: 02-16-2022 Telephone encounter Moraima allen MD Work Phone: Pain Management Comment on above: Medication Problem ( Stopped Eliquis for procedure-now has chest pain ) Start: 02-10-2022 End: 02-10-2022 Office outpatient visit 25 minutes Guillaume Dominguez MD Work Phone: Internal Medicine [place] Comment on above: Fatigue, unspecified type (Primary Dx); Primary hypertension; Hypoalbuminemia; Dietary iron deficiency without anemia; Elevated ferritin; Class 3 severe obesity due to excess calories with body mass index (BMI) of 40.0 to 44.9 in adult, unspecified whether serious comorbidity present ([facility]) Start: 02-10-2022 End: 02-10-2022 Orders Only Moraima [...] Guillaume ventura MD Work Phone: Internal Medicine [place] Comment on above: Patient Question Start: 01-29-2022 Telephone encounter Guillaume ventura MD Work Phone: Internal Medicine [place] Comment on above: Orders Start: 01-19-2022 End: 01-19-2022 Patient encounter procedure Comfort Patterson CORD MAKER.PLANT CONTROL AIDE Work Phone: Internal Medicine [place] Comment on above: Fatigue, unspecified type (Primary Dx); Iron deficiency Start: 01-12-2022 Orders Only Moraima Montelongo MD Work Phone: Pain Management Comment on above: Chronic left SI join t pain (Primary Dx); Sacroiliac joint pain; SI joint arthritis; Chronic SI joint pain Start: 01-05-2022 End: 01-05-2022 Orders Only Guillaume Dominguez MD Work Phone: Internal Medicine [place] Comment on above: Elevated ferritin (P rimary Dx) Pernicious anemia (P rimary Dx) Start: 12-17-2021 End: 12-17-2021 Patient encounter procedure Sasha Hurley CORD MAKER.CONSULTING SERVICES ASSOCIATE Work Phone: [facility] Comment on above: Acute UTI (Primary D x); Urinary frequency; Glucosuria Start: 12-15-2021 Telephone encounter Guillaume ventura MD Work Phone: Internal Medicine [place] Comment on above: urine symptoms Start: 12-05-2021 [...] Guillaume abarca MD Work Phone: Internal Medicine [place] Comment on above: Refill Request Start: 10-07-2021 Telephone encounter Moraima allen MD Work Phone: Pain Management Comment on above: Appointment Start: 10-06-2021 Telephone encounter Tomer Soto MD Work Phone: Family Medicine [place] Comment on above: Results Start: 10-03-2021 End: 10-03-2021 Subsequent hospital visit by physician aLury [facility] [place] Work Phone: Radiology Comment on above: Shortness of breath on exertion [R06.02] Start: 10-03-2021 End: 10-03-2021 Patient encounter procedure Iban Soto MD Work Phone: Family [facility] [place] Comment on above: Irregular heart beat (Primary Dx); Shortness of breath on exertion; Fatigue, unspecified type; Skin tear of left forearm without complication, initial encounter; Lightheadedness Start: 09-29-2021 Telephone encounter Guillaume ventura MD Work Phone: [facility] [place] Comment on above: Results Start: 09-22-2021 Refill Curtis allen MD Work Phone: [facility] Comment on above: Refill Request Start: 09-01-2021 End: 09-01-2021 Nursing evaluation of patient and report Mi Nurse Work Phone: [facility] [place] Comment on above: Pernicious anemia (P rimary Dx) Start: 08-22-2021 End: 08-22-2021 Patient encounter procedure Curtis Nassar MD Work Phone: [facility] Comment on above: H/O gastric bypass ( Primary Dx); DM (diabetes mellitus), type 2 with neurological complications (HCC); Radiculopathy of thoracic region Start: 10-03-2018 End: 10-03-2018 Patient encounter procedure [facility] Start: 09-08-2017 End: 09-08-2017 [facility] Facility:[facility] Procedures Date Procedure Procedure Detail Performing Clinician [...] Comment: Speci men Type: BLOOD SPECIMENOrdering Facility: [facility] Address: [address] [place] [address] Performed By: #### T SCR ####[facility] BLOOD BANKCLIA [id number] [place] [address] [facility] Start: 05-05-2024 Computed tomography of thoracic spine [...] 07-21-2023 Digital breast tomosynthesis unilateral Josefa Flynn CORD MAKER.CONSULTING SERVICES ASSOCIATE Work Phone: Start: 06-12-2023 Plain X-ray of femur Start: 06-12-2023 CT of head without contrast Start: 06-12-2023 Pelvis X-ray Start: 05-14-2023 [employer] COVI D-19 VACCINE ( SEASON) AGE 12+ YR Guillaume Dominguez MD Work Phone: Start: 02-26-2023 Plain x-ray of pelvi s and lower extremity Start: 02-26-2023 CT of head without contrast Start: 02-02-2023 INFLUENZA VACCINE, P RSV FREE, AGE 65+ YR, HIGH DOSE, QUADRIVALENT (FLUZONE HIGH-DOSE) Josefa Caputo CORD MAKER.CONSULTING SERVICES ASSOCIATE Work Phone: Start: 01-28-2023 Myocardial spect mul tiple studies Maykel Truonggilbert DO Work Phone: Start: 01-11-2023 Ecg routine ecg w/le ast 12 lds i&r only [facility] Provider Start: 12-30-2022 Hemoglobin A1c/Hemoglobin.total in Blood Curtis Nassar MD Work Phone: Start: 09-23-2022 Radiologic exam abdo men 1 view Maykel Patel MD Work Phone: Start: 08-15-2022 Ecg routine ecg w/le ast 12 lds i&r only [facility] Provider Start: 06-11-2022 Urnls dip stick/tabl et rgnt auto w/o microscopy Maykel Patel MD Work Phone: Start: 05-06-2022 Radex fingr minimum 2 views Janae Sandoval CORD MAKER.CONSULTING SERVICES ASSOCIATE Work Phone: Start: 04-28-2022 Brncdilat rspse spmt [...] BOOSTER VACCINE, AGE 12+ YR Comfort Patterson CORD MAKER.PLANT CONTROL AIDE Work Phone: Start: 02-28-2022 Computed tomography of [...] et rgnt auto w/o microscopy Jennifer Brian PASindyC Work Phone: Start: 10-03-2021 Radiologic exam ches t 2 views Iban Soto MD Work Phone: Start: 02-10-2021 Adult depression scr eening assessment Curtis Nassar MD Work Phone: Start: 04-21-2015 History of gastroint estinal tract bypass History of Jordin-en-Y gastric bypass Guillaume Dominguez MD Work Phone: History of gastroint estinal tract bypass History of Jordin-en-Y gastric bypass Guillaume Dominguez MD Work Phone: Plan of Treatment Date Care Activity Detail Author Start: 05-19-2025 Diabetes: Estimated Glomerular Filtration Rate for Kidney Health Diabetes: Estimated Glomerular Filtration Rate for Kidney Health [facility] Start: 05-09-2025 End: 05-09-2025 Patient encounter procedure 05/09/2025 2:00 PM EST Office Visit Internal Medicine [place] [address] [place] [id number] Guillaume Dominguez MD [address] [place] [id number] 6 month follow up Internal Medicine [place] Comment on above: 6 month follow up Start: 01-29-2025 Influenza vaccination Influenza Vaccine (#1) [facility] Start: 12-02-2024 Glaucoma screening Dilated Retinal Exam [facility] Start: 11-08-2024 End: 11-08-2024 Patient encounter procedure 11/08/2024 10:40 AM EDT Office Visit Internal Medicine [place] [address] [place] [address] Guillaume Dominguez MD [address] [place] [address] 6 month follow up Internal Medicine [place] Comment on above: 6 month follow up Start: 09-27-2024 Glaucoma screening Dilated Retinal Exam [facility] Start: 08-26-2024 Hepatitis B surface antibody level LDL Cholesterol [facility] Start: 08-03-2024 End: 08-03-2024 Patient encounter procedure 08/03/2024 1:45 PM EST Appointment RADIO CT SCAN [employer] [address] [place] [address] CT BRAIN WO RADIO CT SCAN [employer] Comment on above: CT BRAIN WO Start: 08-03-2024 End: 08-03-2024 Patient encounter procedure Geriatrics Comment on above: Mild cognitive impairment [G31.84] [address] today Start: 08-01-2024 End: 08-01-2025 CT Head WO contrast CT head wo IV contrast Imaging Routine Nontraumatic intracranial hemorrhage, unspecified (HCC) Expected: 08/01/2024, Expires: 08/01/2025 [facility] Work Phone: Comment on above: Expected: 08/01/2024, Expires: Start: 07-13-2024 End: 07-13-2024 Patient encounter procedure RADIO CT SCAN [employer] Comment on above: brain wo [address] today CT BRAIN WO Start: 06-20-2024 End: 06-20-2024 Patient encounter procedure 06/20/2024 9:00 AM EST Office Visit Urology [address] [address] Maykel Patel Jr., MD [address] [place] [address] 1 year follow up Urology Comment on above: 1 year follow up Start: 05-31-2024 Advance Directive Discussion Advance Directive Discussion [facility] Start: 05-31-2024 Medicare Advantage Annual Wellness Visit Medicare Advantage Annual Wellness Visit [facility] Start: 05-18-2024 Diabetes: Urine Albumin-Creatinine Ratio for Kidney Health Diabetes: Urine Albumin-Creatinine Ratio for Kidney Health [facility] Start: 05-18-2024 Hepatitis B screening Urine Albumin:Creatinine Ratio [facility] Start: 05-18-2024 Hepatitis B surface antibody level LDL Cholesterol [facility] Start: 05-06-2024 End: 05-06-2024 Optx fem shft fx w/plate/screws w/wo cerclage ORIF FEMUR WITH PLATING Periprosthetic fracture of shaft of femur 05/06/2024 3:50 PM EST [place] Start: 05-06-2024 End: 05-06-2024 Craniectomy hmtma supratentorial extra/subdural CRANIOTOMY FOR EVACUATION OF SUPRATENTORIAL SUBDURAL HEMATOMA Subdural hematoma (HCC) 05/06/2024 8:00 AM EST [place] Start: 05-06-2024 [facility] Start: 05-06-2024 Aspiration precautions [facility] Start: 05-05-2024 End: 05-05-2024 Follow-up encounter 05/05/2024 10:00 AM EST [facility] [address] [phone] Adina Lay, GM.CONSULTING SERVICES ASSOCIATE [id number] [place] [address] 6 month follow up [facility]ocr[facility] [place] Comment on above: 6 month follow up Start: 05-05-2024 End: 05-05-2024 Patient encounter procedure 05/05/2024 10:00 AM EST Office Visit Endocrinology [address] [phone] Adina Lay, GM.CONSULTING SERVICES ASSOCIATE [address] [place] [address] 6 month follow up [facility]ocr[facility] [place] Comment on above: 6 month follow up Start: 04-28-2024 End: 04-28-2024 Patient encounter procedure 04/28/2024 4:00 PM EST Office Visit Internal Medicine [place] [address] [place] [address] Guillaume Dominguez MD [address] [place] [address] 6 month follow up Internal Medicine [place] Comment on above: 6 month follow up Start: 03-30-2024 End: 03-30-2024 Admission to same day surgery center 03/30/2024 1:30 PM EDT - 03/30/2024 1:55 PM EDT Surgery [facility] [address] [place] [address] Moraima Montelongo MD [address] [facility] [place] [address] INJECTION(S) ANESTHETIC AGENT AND STEROID TRANSFORAMINAL EPIDURAL LUMBAR W/IMAGE GUIDANCE FLUORO OR CT [facility] Comment on above: INJECTION(S) ANESTHETIC AGENT [...] physician 03/30/2024 1:30 PM EDT Hospital Encounter [facility] [address] [place] [address] Moraima Montelongo MD [address] [facility] [place] [address] Lumbar spondylosis [M47.816], Spondylolisthesis of lumbar region [M43.16], Radiculopathy, lumbar region [M54.16] [facility] Comment on above: Lumbar spondylosis [M47.816], Spondyloli sthesis of lumbar region [M43.16], Radiculopathy, lumbar region [M54.16] Start: 03-30-2024 End: 03-30-2024 Admission to same day surgery center 03/30/2024 7:53 AM EDT - 03/30/2024 8:18 AM EDT Surgery [facility] [address] [place] [address] Moraima Montelongo MD [address] [facility] [place] [address] INJECTION(S) ANESTHETIC AGENT AND STEROID TRANSFORAMINAL EPIDURAL LUMBAR W/IMAGE GUIDANCE FLUORO OR CT [facility] Comment on above: INJECTION(S) ANESTHETIC AGENT [...] physician 03/30/2024 7:53 AM EDT Hospital Encounter [facility] [address] [place] [address] Moraima Montelongo MD [address] [facility] [place] [address] Lumbar spondylosis [M47.816], Spondylolisthesis of lumbar region [M43.16], Radiculopathy, lumbar region [M54.16] [facility] Comment on above: Lumbar spondylosis [M47.816], Spondyloli sthesis of lumbar region [M43.16], Radiculopathy, lumbar region [M54.16] Start: 03-09-2024 End: 03-09-2024 Patient encounter procedure 03/09/2024 10:00 AM EDT Office Visit Dermatology [address] [address] Radha Walters MD [address] [place] [address] follow up Dermatology Comment on above: follow up Start: 02-27-2024 Hemoglobin A1c measurement HbA1C [facility] Start: 02-15-2024 End: 02-15-2024 Patient encounter procedure 02/15/2024 9:15 AM EDT Office Visit Urology [address] [address] Maykel Patel Jr., MD [address] [place] [address] 1 year follow up Urology Comment on above: 1 year follow up Start: 02-11-2024 End: 02-11-2024 Patient encounter procedure 02/11/2024 11:00 AM EDT Office Visit Internal Medicine [place] [address] [place], [place] [phone] Josefa Caputo APRN.CONSULTING SERVICES ASSOCIATE [address] [place] [phone] 3 month follow up Internal Medicine [place] Comment on above: 3 month follow up Start: 02-08-2024 End: 02-08-2024 Patient encounter procedure 02/08/2024 1:40 PM EDT Office Visit Internal Medicine [place] [address] [place], [place] [phone] Damaris Knott MD [address] [place], [place] [phone] srinivas consult with Dr. Knott per pcp [facility] [place] Comment on above: srinivas consult with Dr. Knott per pcp Start: 02-03-2024 ANNUAL PCP TEAM CHRONIC DISEASE VISIT ANNUAL PCP TEAM CHRONIC DISEASE VISIT [facility] Start: 02-03-2024 BP CONTROLLED (<130/80) BP CONTROLLED (<130/80) [facility] Start: 01-30-2024 COVID-19 Vaccine () COVID-19 Vaccine () [facility] Start: 01-30-2024 Covid-19 Vaccine ( season) Covid-19 Vaccine ( season) [facility] Start: 01-30-2024 Influenza [facility] Start: 01-26-2024 End: 01-26-2024 Patient encounter procedure [facility] [place] Comment on above: Nurse Visit srinivas consult with Dr Dara Knott per pcp Start: 01-12-2024 BP CONTROLLED (<130/80) BP CONTROLLED (<130/80) [facility] Start: 01-10-2024 End: 04-10-2024 Urinalysis complete panel - Urine URINALYSIS WITH MICROSCOPIC, REFLEX CULTURE Lab Routine UTI symptoms Expected: 01/10/2024, Expires: 04/10/2024 [facility] Comment on above: Expected: 01/10/2024, Expires: Start: 12-11-2023 End: 03-11-2024 25-hydroxyvitamin D3 [Mass/volume] in Serum or Plasma VITAMIN D 25 HYDROXY Lab Routine Vitamin D deficiency History of Jordin-en-Y gastric bypass Encounter for long-term current use of medication Expected: 12/11/2023, Expires: 03/11/2024 [facility] Comment on above: Expected: 12/11/2023, Expires: Start: 12-11-2023 End: 03-11-2024 CBC panel - Blood by Automated count COMPLETE BLOOD COUNT Lab Routine History of Jordin-en-Y gastric bypass Iron deficiency Encounter for long-term current use of medication Expected: 12/11/2023, Expires: 03/11/2024 [facility] Comment on above: Expected: 12/11/2023, Expires: 4 Start: 12-11-2023 End: 03-11-2024 Cobalamin (Vitamin B12) [Mass/volume] in Serum or Plasma VITAMIN B12 Lab Routine Vitamin B12 deficiency History of Jordin-en-Y gastric bypass Encounter for long-term current use of medication Expected: 12/11/2023, Expires: 03/11/2024 [facility] Comment on above: Expected: 12/11/2023, Expires: 4 Start: 12-11-2023 End: 03-11-2024 Comprehensive metabolic 2000 panel - Serum or Plasma COMPREHENSIVE METABOLIC PANEL Lab Routine 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 Encounter for long-term current use of medication Expected: 12/11/2023, Expires: 03/11/2024 [facility] Comment on above: Expected: 12/11/2023, Expires: Start: 12-11-2023 End: 03-11-2024 Ferritin [Mass/volume] in Serum or Plasma FERRITIN Lab Routine History of Jordin-en-Y gastric bypass Iron deficiency Encounter for long-term current use of medication Expected: 12/11/2023, Expires: 03/11/2024 [facility] Comment on above: Expected: 12/11/2023, Expires: Start: 12-11-2023 End: 03-11-2024 Folate [Mass/volume] in Serum or Plasma FOLATE, SERUM Lab Routine History of Jordin-en-Y gastric bypass Encounter for long-term current use of medication Expected: 12/11/2023, Expires: 03/11/2024 [facility] Comment on above: Expected: 12/11/2023, Expires: Start: 12-11-2023 End: 03-11-2024 Hemoglobin A1c in Blood HEMOGLOBIN A1C Lab Routine 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 Encounter for long-term current use of medication Expected: 12/11/2023, Expires: 03/11/2024 [facility] Work Phone: Comment on above: Expected: 12/11/2023, Expires: Start: 12-11-2023 End: 03-11-2024 Iron and Iron binding capacity panel - Serum or Plasma IRON AND TIBC Lab Routine History of Jordin-en-Y gastric bypass Iron deficiency Encounter for long-term current use of medication Expected: 12/11/2023, Expires: 03/11/2024 [facility] Comment on above: Expected: 12/11/2023, Expires: Start: 12-11-2023 End: 03-11-2024 Lipid 1996 panel - Serum or Plasma LIPID PANEL BASIC Lab Routine Mixed hyperlipidemia History of Jordin-en-Y gastric bypass Encounter for long-term current use of medication Expected: 12/11/2023, Expires: 03/11/2024 [facility] Comment on above: Expected: 12/11/2023, Expires: Start: 12-11-2023 End: 03-11-2024 LIPID PANEL, NONFASTING LIPID PANEL, NONFASTING Lab Routine Mixed hyperlipidemia History of Jordin-en-Y gastric bypass Encounter for long-term current use of medication Expected: 12/11/2023, Expires: 03/11/2024 [facility] Comment on above: Expected: 12/11/2023, Expires: Start: 12-11-2023 End: 03-11-2024 Retinol [Mass/volume] in Serum or Plasma VITAMIN A/RETINOL Lab Routine History of Jordin-en-Y gastric bypass Encounter for long-term current use of medication Expected: 12/11/2023, Expires: 03/11/2024 [facility] Comment on above: Expected: 12/11/2023, Expires: Start: 12-11-2023 End: 03-11-2024 Zinc [Mass/volume] in Serum or Plasma ZINC BLD Lab Routine History of Jordin-en-Y gastric bypass Encounter for long-term current use of medication Expected: 12/11/2023, Expires: 03/11/2024 [facility] Comment on above: Expected: 12/11/2023, Expires: Start: 12-10-2023 End: 12-10-2023 Patient encounter procedure 12/10/2023 3:40 PM EDT Office Visit Internal Medicine [place] [address] [place] [address] Guillaume Dominguez MD [address] [place], [place] [phone] 6 month follow up Internal Medicine [place] Comment on above: 6 month follow up Start: 11-28-2023 ANNUAL PCP TEAM CHRONIC DISEASE VISIT ANNUAL PCP TEAM CHRONIC DISEASE VISIT [facility] Start: 11-28-2023 SHINGRIX VACCINE (2 of 3) SHINGRIX VACCINE (2 of 3) [facility] Comment on above: Postponed from 11/25/2012 (Declined at t his time) Start: 11-28-2023 Urine microalbumin profile [facility] Comment on above: Postponed from 10/10/2016 (Declined at t his time) Start: 11-25-2023 End: 11-25-2023 Follow-up encounter 11/25/2023 9:00 AM EDT [facility] Dermatology [address] [address] Radha Walters MD [address] [place] [address] 4 MONTH FOLLOW UP Dermatology Comment on above: 4 MONTH FOLLOW UP Start: 11-11-2023 End: 11-11-2023 Patient encounter procedure 11/11/2023 10:00 AM EDT Office Visit Dermatology [address] [place] [phone] Radha Walters MD [address] [place] [phone] 4 MONTH FOLLOW UP Dermatology Comment on above: 4 MONTH FOLLOW UP Start: 11-04-2023 End: 11-04-2023 Nursing evaluation of patient and report 11/04/2023 1:30 PM EDT Nurse Visit Family Medicine [place] [address] [place], [place] [phone] Nurse, [address] [address] B-12 injection [facility] [place] Comment on above: B-12 injection Start: 10-29-2023 End: 10-29-2023 Patient encounter procedure 10/29/2023 3:00 PM EDT Office Visit Endocrinology [place] [address] [place] [address] [place] [address] [facility] [address] [place] [address] 6 month follow up Endocrinology [place] Comment on above: 6 month follow up Start: 10-28-2023 ANNUAL PCP TEAM CHRONIC DISEASE VISIT ANNUAL PCP TEAM CHRONIC DISEASE VISIT [facility] Start: 10-28-2023 BP CONTROLLED (<130/80) BP CONTROLLED (<130/80) [facility] in Start: 10-11-2023 End: 10-11-2023 Patient encounter procedure 10/11/2023 11:20 AM EDT Office Visit Internal Medicine [place] [address] [place] [address] Comfort Patterson APRN.PLANT CONTROL AIDE [address] [place] [address] physical eval- for assisted living Internal Medicine [place] Comment on above: physical eval- for assisted living Start: 10-04-2023 End: 10-04-2023 Nursing evaluation of patient and report 10/04/2023 1:30 PM EDT Nurse Visit Family Medicine [place] [address] [place], [place] [phone] Nurse, Ri [address] [place] [address] B-12 injection [facility] [place] Comment on above: B-12 injection Start: 09-13-2023 Covid-19 Vaccine () Covid-19 Vaccine () [facility] Start: 08-17-2023 End: 11-16-2023 Hemoglobin A1c in Blood HGB A1C Lab Routine Expected: 08/17/2023 (Approximate), Expires: 11/16/2023 [facility] Work Phone: Comment on above: Expected: 08/17/2023 (Approximate), Expi res: 11/16/2023 Start: 08-17-2023 Hemoglobin A1c measurement HbA1C [facility] Start: 08-16-2023 End: 11-15-2023 25-hydroxyvitamin D3 [Mass/volume] in Serum or Plasma VITAMIN D 25 HYDROXY Lab Routine Vitamin D deficiency Expected: 08/16/2023, Expires: 11/15/2023 [facility] Work Phone: Comment on above: Expected: 08/16/2023, Expires: Start: 08-16-2023 ANNUAL PCP TEAM CHRONIC DISEASE VISIT ANNUAL PCP TEAM CHRONIC DISEASE VISIT [facility] Start: 08-16-2023 BP CONTROLLED (<130/80) BP CONTROLLED (<130/80) [facility] Start: 08-16-2023 End: 11-15-2023 CBC W Auto Differential panel - Blood CBC + DIFF Lab Routine Encounter for therapeutic drug monitoring Iron deficiency Expected: 08/16/2023, Expires: 11/15/2023 [facility] Work Phone: Comment on above: Expected: 08/16/2023, Expires: Start: 08-16-2023 End: 11-15-2023 Cobalamin (Vitamin B12) [Mass/volume] in Serum or Plasma VITAMIN B12 BLOOD Lab Routine Vitamin B12 deficiency Iron deficiency Expected: 08/16/2023, Expires: 11/15/2023 [facility] Work Phone: Comment on above: Expected: 08/16/2023, Expires: 4 Start: 08-16-2023 End: 11-15-2023 Comprehensive metabolic 2000 panel - Serum or Plasma COMP METABOLIC PANEL Lab Routine Encounter for therapeutic drug monitoring Expected: 08/16/2023, Expires: 11/15/2023 [facility] Work Phone: Comment on above: Expected: 08/16/2023, Expires: 4 Start: 08-16-2023 End: 11-15-2023 Ferritin [Mass/volume] in Serum or Plasma FERRITIN BLD Lab Routine Iron deficiency Expected: 08/16/2023, Expires: 11/15/2023 [facility] Work Phone: Comment on above: Expected: 08/16/2023, Expires: 4 Start: 08-16-2023 End: 11-15-2023 Iron and Iron binding capacity panel - Serum or Plasma IRON + TIBC Lab Routine Iron deficiency Expected: 08/16/2023, Expires: 11/15/2023 [facility] Work Phone: Comment on above: Expected: 08/16/2023, Expires: Start: 08-16-2023 End: 11-15-2023 LIPID PANEL, NONFASTING LIPID PANEL, NONFASTING Lab Routine Screening, lipid Expected: 08/16/2023, Expires: 11/15/2023 [facility] Work Phone: Comment on above: Expected: 08/16/2023, Expires: Start: 08-16-2023 End: 11-15-2023 Thyrotropin [Units/volume] in Serum or Plasma TSH BLD Lab Routine Screening for thyroid disorder Expected: 08/16/2023, Expires: 11/15/2023 [facility] Work Phone: Comment on above: Expected: 08/16/2023, Expires: Start: 07-07-2023 ANNUAL PCP TEAM CHRONIC DISEASE VISIT ANNUAL PCP TEAM CHRONIC DISEASE VISIT [facility] Start: 07-07-2023 BP CONTROLLED (<130/80) BP CONTROLLED (<130/80) [facility] Start: 07-02-2023 Hemoglobin A1c measurement HbA1C [facility] Start: 07-02-2023 Hemoglobin A1c/Hemoglobin.total in Blood HBA1C [facility] Start: 06-12-2023 [facility] Start: 06-11-2023 BP CONTROLLED (<130/80) BP CONTROLLED (<130/80) [facility] Start: 05-31-2023 Advance Directive Discussion Advance Directive Discussion [facility] Start: 05-31-2023 Behavioral Health Screening Behavioral Health Screening [facility] Start: 05-31-2023 Depression Assessment Depression Assessment [facility] Start: 05-14-2023 End: 08-13-2023 25-hydroxyvitamin D3 [Mass/volume] in Serum or Plasma VITAMIN D 25 HYDROXY Lab Routine Vitamin D deficiency Expected: 05/14/2023, Expires: 08/13/2023 [facility] Work Phone: Comment on above: Expected: 05/14/2023, Expires: Start: 05-12-2023 ANNUAL PCP TEAM CHRONIC DISEASE VISIT ANNUAL PCP TEAM CHRONIC DISEASE VISIT [facility] Start: 05-12-2023 BP CONTROLLED (<130/80) BP CONTROLLED (<130/80) [facility] Start: 05-06-2023 BP CONTROLLED (<130/80) BP CONTROLLED (<130/80) [facility] Start: 04-30-2023 End: 06-30-2023 ALBUMIN/CREAT RATIO RND UR ALBUMIN/CREAT RATIO RND UR Lab Routine Type 2 diabetes mellitus with peripheral neuropathy (HCC) Expected: 04/30/2023, Expires: 06/30/2023 [facility] Work Phone: Comment on above: Expected: 04/30/2023, Expires: 4 Start: 04-30-2023 End: 06-30-2023 CBC W Auto Differential panel - Blood CBC + DIFF Lab Routine Chronic fatigue Encounter for therapeutic drug monitoring Expected: 04/30/2023, Expires: 06/30/2023 [facility] Work Phone: Comment on above: Expected: 04/30/2023, Expires: 4 Start: 04-30-2023 End: 06-30-2023 Comprehensive metabolic 2000 panel - Serum or Plasma COMP METABOLIC PANEL Lab Routine Chronic fatigue Encounter for therapeutic drug monitoring Expected: 04/30/2023, Expires: 06/30/2023 [facility] Work Phone: Comment on above: Expected: 04/30/2023, Expires: 4 Start: 04-30-2023 End: 06-30-2023 Ferritin [Mass/volume] in Serum or Plasma FERRITIN BLD Lab Routine Chronic fatigue Encounter for therapeutic drug monitoring Expected: 04/30/2023, Expires: 06/30/2023 [facility] Work Phone: Comment on above: Expected: 04/30/2023, Expires: 4 Start: 04-30-2023 End: 06-30-2023 Hemoglobin A1c in Blood HGB A1C Lab Routine Chronic fatigue Encounter for therapeutic drug monitoring Type 2 diabetes mellitus with peripheral neuropathy (HCC) Expected: 04/30/2023, Expires: 06/30/2023 [facility] Work Phone: Comment on above: Expected: 04/30/2023, Expires: 4 Start: 04-30-2023 End: 06-30-2023 Iron and Iron binding capacity panel - Serum or Plasma IRON + TIBC Lab Routine Chronic fatigue Encounter for therapeutic drug monitoring Expected: 04/30/2023, Expires: 06/30/2023 [facility] Work Phone: Comment on above: Expected: 04/30/2023, Expires: Start: 04-30-2023 End: 06-30-2023 Lipid 1996 panel - Serum or Plasma LIPID PANEL BASIC Lab Routine Mixed hyperlipidemia Expected: 04/30/2023, Expires: 06/30/2023 [facility] Work Phone: Comment on above: Expected: 04/30/2023, Expires: Start: 04-27-2023 ANNUAL PCP TEAM CHRONIC DISEASE VISIT ANNUAL PCP TEAM CHRONIC DISEASE VISIT [facility] Start: 02-10-2023 ANNUAL PCP TEAM CHRONIC DISEASE VISIT ANNUAL PCP TEAM CHRONIC DISEASE VISIT [facility] Start: 01-29-2023 Covid-19 Vaccine ( season) Covid-19 Vaccine () [facility] Start: 01-29-2023 Influenza vaccination INFLUENZA (#1) [facility] Start: 01-16-2023 Hepatitis B screening URINE ALBUMIN:CREATININE RATIO [facility] Start: 12-08-2022 Hemoglobin A1c/Hemoglobin.total in Blood HBA1C [facility] Start: 10-25-2022 Hemoglobin A1c/Hemoglobin.total in Blood HBA1C [facility] Start: 10-03-2022 ANNUAL PCP TEAM CHRONIC DISEASE VISIT ANNUAL PCP TEAM CHRONIC DISEASE VISIT [facility] Start: 09-09-2022 End: 07-11-2023 XR ABDOMEN 1V SUPINE XR ABDOMEN 1V SUPINE Radiology Routine Kidney stone Expected: 09/09/2022, Expires: 07/11/2023 [facility] Work Phone: Comment on above: Expected: 09/09/2022, Expires: Start: 08-25-2022 ANNUAL PCP TEAM CHRONIC DISEASE VISIT ANNUAL PCP TEAM CHRONIC DISEASE VISIT [facility] Start: 08-21-2022 Hepatitis B screening URINE ALBUMIN:CREATININE RATIO [facility] Start: 08-15-2022 End: 10-15-2022 25-hydroxyvitamin D3 [Mass/volume] in Serum or Plasma VITAMIN D 25 HYDROXY Lab Routine Vitamin D deficiency Expected: 08/15/2022, Expires: 10/15/2022 [facility] Work Phone: Comment on above: Expected: 08/15/2022, Expires: Start: 08-15-2022 End: 10-15-2022 CBC panel - Blood by Automated count CBC Lab Routine Irregular heart rhythm Dietary iron deficiency without anemia Expected: 08/15/2022, Expires: 10/15/2022 [facility] Work Phone: Comment on above: Expected: 08/15/2022, Expires: Start: 08-15-2022 End: 10-15-2022 Cobalamin (Vitamin B12) [Mass/volume] in Serum or Plasma VITAMIN B12 BLOOD Lab Routine B12 deficiency Other fatigue Expected: 08/15/2022, Expires: 10/15/2022 [facility] Work Phone: Comment on above: Expected: 08/15/2022, Expires: 3 Start: 08-15-2022 End: 10-15-2022 Comprehensive metabolic 2000 panel - Serum or Plasma COMP METABOLIC PANEL Lab Routine Irregular heart rhythm Expected: 08/15/2022, Expires: 10/15/2022 [facility] Work Phone: Comment on above: Expected: 08/15/2022, Expires: 3 Start: 08-15-2022 End: 10-15-2022 Ferritin [Mass/volume] in Serum or Plasma FERRITIN BLD Lab Routine Elevated ferritin Other fatigue Expected: 08/15/2022, Expires: 10/15/2022 [facility] Work Phone: Comment on above: Expected: 08/15/2022, Expires: 3 Start: 08-15-2022 End: 10-15-2022 Folate [Mass/volume] in Serum or Plasma FOLATE SERUM Lab Routine Other fatigue Expected: 08/15/2022, Expires: 10/15/2022 [facility] Work Phone: Comment on above: Expected: 08/15/2022, Expires: 3 Start: 08-15-2022 End: 10-15-2022 Hemoglobin A1c in Blood HGB A1C Lab Routine Irregular heart rhythm Expected: 08/15/2022, Expires: 10/15/2022 [facility] Work Phone: Comment on above: Expected: 08/15/2022, Expires: 3 Start: 08-15-2022 End: 10-15-2022 Iron and Iron binding capacity panel - Serum or Plasma IRON + TIBC Lab Routine Other fatigue Expected: 08/15/2022, Expires: 10/15/2022 [facility] Work Phone: Comment on above: Expected: 08/15/2022, Expires: 3 Start: 08-15-2022 End: 10-15-2022 Magnesium [Mass/volume] in Serum or Plasma MAGNESIUM BLD Lab Routine Irregular heart rhythm Expected: 08/15/2022, Expires: 10/15/2022 [facility] Work Phone: Comment on above: Expected: 08/15/2022, Expires: 3 Start: 08-15-2022 End: 10-15-2022 Methylmalonate [Moles/volume] in Serum or Plasma METHYLMALONIC ACID Lab Routine B12 deficiency Expected: 08/15/2022, Expires: 10/15/2022 [facility] Work Phone: Comment on above: Expected: 08/15/2022, Expires: 3 Start: 08-15-2022 End: 10-15-2022 Thyrotropin [Units/volume] in Serum or Plasma TSH BLD Lab Routine Irregular heart rhythm Expected: 08/15/2022, Expires: 10/15/2022 [facility] Work Phone: Comment on above: Expected: 08/15/2022, Expires: 3 Start: 08-15-2022 End: 10-15-2022 Thyroxine (T4) free [Mass/volume] in Serum or Plasma T4 FREE/FREE THYROX Lab Routine Irregular heart rhythm Expected: 08/15/2022, Expires: 10/15/2022 [facility] Work Phone: Comment on above: Expected: 08/15/2022, Expires: 3 Start: 08-15-2022 End: 10-15-2022 Triiodothyronine (T3) Free [Mass/volume] in Serum or Plasma T3 FREE BLD Lab Routine Irregular heart rhythm Expected: 08/15/2022, Expires: 10/15/2022 [facility] Work Phone: Comment on above: Expected: 08/15/2022, Expires: 3 Start: 07-19-2022 Hemoglobin A1c/Hemoglobin.total in Blood HBA1C [facility] Start: 07-03-2022 COVID-19 VACCINE (5 - Pfizer series) COVID-19 VACCINE (5 - Pfizer series) [facility] Start: 06-18-2022 End: 08-18-2022 Bacteria identified in Urine by Culture [facility] Work Phone: Comment on above: Expected: 06/18/2022, Expires: 3 Start: 05-31-2022 ADVANCE DIRECTIVE DISCUSSION ADVANCE DIRECTIVE DISCUSSION [facility] Start: 05-31-2022 DEPRESSION ASSESSMENT DEPRESSION ASSESSMENT [facility] Start: 04-27-2022 End: 06-27-2022 Cobalamin (Vitamin B12) [Mass/volume] in Serum or Plasma [facility] Work Phone: Comment on above: Expected: 04/27/2022, Expires: 3 Start: 04-27-2022 End: 06-27-2022 Comprehensive metabolic 2000 panel - Serum or Plasma [facility] Work Phone: Comment on above: Expected: 04/27/2022, Expires: 3 Start: 04-27-2022 End: 06-27-2022 Ferritin [Mass/volume] in Serum or Plasma [facility] Work Phone: Comment on above: Expected: 04/27/2022, Expires: 3 Start: 04-27-2022 End: 06-27-2022 Folate [Mass/volume] in Serum or Plasma [facility] Work Phone: Comment on above: Expected: 04/27/2022, Expires: 3 Start: 04-27-2022 End: 06-27-2022 Hemoglobin A1c in Blood [facility] Work Phone: Comment on above: Expected: 04/27/2022, Expires: 3 Start: 04-27-2022 End: 06-27-2022 Iron and Iron binding capacity panel - Serum or Plasma [facility] Work Phone: Comment on above: Expected: 04/27/2022, Expires: 3 Start: 03-30-2022 End: 05-30-2022 CBC W Auto Differential panel - Blood CBC + DIFF Lab Routine Iron deficiency Expected: 03/30/2022 (Approximate), Expires: 05/30/2022 [facility] Work Phone: Comment on above: Expected: 03/30/2022 (Approximate), Expi res: 05/30/2022 Start: 03-30-2022 End: 05-30-2022 Ferritin [Mass/volume] in Serum or Plasma FERRITIN BLD Lab Routine Iron deficiency Expected: 03/30/2022 (Approximate), Expires: 05/30/2022 [facility] Work Phone: Comment on above: Expected: 03/30/2022 (Approximate), Expi res: 05/30/2022 Start: 03-30-2022 End: 05-30-2022 Iron and Iron binding capacity panel - Serum or Plasma IRON + TIBC Lab Routine Iron deficiency Expected: 03/30/2022 (Approximate), Expires: 05/30/2022 [facility] Work Phone: Comment on above: Expected: 03/30/2022 (Approximate), Expi res: 05/30/2022 Start: 02-21-2022 Hemoglobin A1c/Hemoglobin.total in Blood HBA1C [facility] Start: 02-21-2022 Simple repair scalp/neck/ax/genit/trunk 2.5cm/< RPR S/N/AX/GEN/TRNK 2.5CM/< [facility] Work Phone: Start: 02-10-2022 Adult depression screening assessment DEPRESSION SCREENING [facility] Start: 02-10-2022 ANNUAL PCP TEAM CHRONIC DISEASE VISIT ANNUAL PCP TEAM CHRONIC DISEASE VISIT [facility] Start: 01-29-2022 Influenza vaccination INFLUENZA (#1) [facility] Start: 01-19-2022 End: 03-21-2022 Thyrotropin [Units/volume] in Serum or Plasma TSH BLD Lab Routine Fatigue, unspecified type Expected: 01/19/2022, Expires: 03/21/2022 [facility] Work Phone: Comment on above: Expected: 01/19/2022, Expires: 2 Start: 01-05-2022 End: 03-07-2022 Ferritin [Mass/volume] in Serum or Plasma FERRITIN BLD Lab Routine Elevated ferritin Expected: 01/05/2022, Expires: 03/07/2022 [facility] Work Phone: Comment on above: Expected: 01/05/2022, Expires: 2 Start: 01-05-2022 End: 03-07-2022 Iron and Iron binding capacity panel - Serum or Plasma IRON + TIBC Lab Routine Elevated ferritin Expected: 01/05/2022, Expires: 03/07/2022 [facility] Work Phone: Comment on above: Expected: 01/05/2022, Expires: 2 Start: 10-28-2021 End: 10-06-2022 CBC W Auto Differential panel - Blood CBC + DIFF Lab Routine Fatigue, unspecified type Elevated ferritin Expected: 10/28/2021 (Approximate), Expires: 10/06/2022 [facility] Work Phone: Comment on above: Expected: 10/28/2021 (Approximate), Expi res: 10/06/2022 Start: 10-28-2021 End: 10-06-2022 Comprehensive metabolic 2000 panel - Serum or Plasma COMP METABOLIC PANEL Lab Routine Fatigue, unspecified type Elevated ferritin Expected: 10/28/2021 (Approximate), Expires: 10/06/2022 [facility] Work Phone: Comment on above: Expected: 10/28/2021 (Approximate), Expi res: 10/06/2022 Start: 10-28-2021 End: 10-06-2022 Echocardiography ECHO Cardiology Routine Shortness of breath on exertion Irregular heart beat Fatigue, unspecified type Expected: 10/28/2021 (Approximate), Expires: 10/06/2022 [facility] Work Phone: Comment on above: Expected: 10/28/2021 (Approximate), Expi res: 10/06/2022 Start: 10-28-2021 End: 10-06-2022 FERRITIN BLD FERRITIN BLD Lab Routine Fatigue, unspecified type Elevated ferritin Expected: 10/28/2021 (Approximate), Expires: 10/06/2022 [facility] Work Phone: Comment on above: Expected: 10/28/2021 (Approximate), Expi res: 10/06/2022 Start: 10-10-2021 Hepatitis B surface antibody level LDL CHOLESTEROL [facility] Start: 08-12-2021 COVID-19 VACCINE (4 - Booster for Pfizer series) COVID-19 VACCINE (4 - Booster for Pfizer series) [facility] Start: 07-29-2021 Glaucoma screening Dilated Retinal Exam [facility] Start: 07-29-2021 Hepatitis C antibody, confirmatory test DILATED RETINAL EXAM [facility] Start: 06-09-2021 COVID-19 VACCINE (4 - Booster for Pfizer series) COVID-19 VACCINE (4 - Booster for Pfizer series) [facility] Start: 05-31-2021 ADVANCE DIRECTIVE DISCUSSION ADVANCE DIRECTIVE DISCUSSION [facility] Start: 05-31-2021 DEPRESSION ASSESSMENT DEPRESSION ASSESSMENT [facility] Start: 2017 RSV Immunization for Adults (1 - 1-dose 75+ series) RSV Immunization for Adults (1 - 1-dose 75+ series) [facility] Start: 2017 RSV Vaccine (1 - 1-dose 75+ series) RSV Vaccine (1 - 1-dose 75+ series) [facility] Start: 10-10-2016 DTaP/Tdap/Td Vaccines (1 - Tdap) DTaP/Tdap/Td Vaccines (1 - Tdap) [facility] Start: 10-10-2016 Urine microalbumin profile [facility] Start: 09-23-2016 3 comp foot exam completed DIABETIC FOOT EXAM [facility] Start: 09-23-2016 Diabetic foot examination Diabetic Foot Exam [facility] Start: 11-25-2012 SHINGRIX VACCINE (2 of 3) SHINGRIX VACCINE (2 of 3) [facility] Start: 11-25-2012 Zoster Vaccines (2 of 3) Zoster Vaccines (2 of 3) [facility] Start: 2002 Hepatitis B Vaccine (1 of 3 - Risk 3-dose series) Hepatitis B Vaccine (1 of 3 - Risk 3-dose series) [facility] Start: 2002 RSV Vaccine (1 - 1-dose 60+ series) RSV Vaccine (1 - 1-dose 60+ series) [facility] Start: 02-08-1960 BP CONTROLLED (<130/80) BP CONTROLLED (<130/80) [facility] Start: 02-08-1960 Depression Screening Depression Screening [facility] Start: 1954 Depression Screening Depression Screening [facility] Start: 02-08-1946 PNEUMOCOCCAL: 65+ (1 - PCV) PNEUMOCOCCAL: 65+ (1 - PCV) [facility] Bacteria identified in Urine by Culture URINE CULTURE Microbiology Routine Urinary frequency Ordered: 12/17/2021 [facility] Work Phone: Comment on above: Ordered: 12/17/2021 Bacteria identified in Urine by Culture URINE CULTURE Microbiology Routine UTI symptoms Ordered: 01/10/2024 [facility] Comment on above: Ordered: 01/10/2024 Bilirubin measuremen t, urine [facility] Work Phone: End: 08-31-2025 CT Head WO contrast CT BRAIN WO IVCON Radiology STAT Intracranial hemorrhage (HCC) 1 Occurrences starting 08/01/2024 until 08/31/2025 [facility] Work Phone: Comment on above: 1 Occurrences starting 08/01/2024 until 08/31/2025 Dstrj neurolytic age nt other peripheral nerve NRV DESTR RFA, CHEM OTHER Procedures Routine Chronic left SI joint pain Ordered: 03/11/2022 [facility] Work Phone: Comment on above: Ordered: 03/11/2022 End: 10-03-2022 ECG COMPLETE ECG COMPLETE ECG Routine Irregular heart beat 1 Occurrences starting 10/03/2021 until 10/03/2022 [facility] Work Phone: Comment on above: 1 Occurrences starting 10/03/2021 until 10/03/2022 End: 11-02-2022 ECG COMPLETE ECG COMPLETE ECG Routine Dyspnea on exertion 1 Occurrences starting 11/02/2021 until 11/02/2022 [facility] Work Phone: Comment on above: 1 Occurrences starting 11/02/2021 until 11/02/2022 End: 04-27-2023 ECG COMPLETE ECG COMPLETE ECG Routine Irregular heart rhythm 1 Occurrences starting 04/27/2022 until 04/27/2023 [facility] Work Phone: Comment on above: 1 Occurrences starting 04/27/2022 until 04/27/2023 End: 08-16-2023 ECG COMPLETE ECG COMPLETE ECG Routine Irregular heart rhythm FIELD (dyspnea on exertion) 1 Occurrences starting 08/15/2022 until 08/16/2023 [facility] Work Phone: Comment on above: 1 Occurrences starting 08/15/2022 until 08/16/2023 ECG COMPLETE ECG COMPLETE ECG 01/11/2023 8:40 AM EDT [facility] End: 01-12-2024 Echocardiography ECHO Cardiology Routine Irregular heart rhythm FIELD (dyspnea on exertion) Premature atrial complexes PAC (premature atrial contraction) Mixed hyperlipidemia Carotid artery stenosis without cerebral infarction, bilateral Type 2 diabetes mellitus with peripheral neuropathy (HCC) Atypical chest pain 1 Occurrences starting 01/11/2023 until 01/12/2024 [facility] Work Phone: Comment on above: 1 Occurrences starting 01/11/2023 until 01/12/2024 Glucose [Mass/volume ] in Serum or Plasma GLUCOSE, BLOOD (POC) Lab Routine Glucosuria Ordered: 12/17/2021 [facility] Work Phone: Comment on above: Ordered: 12/17/2021 Hemoglobin [Presence ] in Urine [facility] Work Phone: End: 05-27-2023 LUNG VOLUMES LUNG VOLUMES PFT Routine FIELD (dyspnea on exertion) Chronic cough 1 Occurrences starting 04/27/2022 until 05/27/2023 [facility] Work Phone: Comment on above: 1 Occurrences starting 04/27/2022 until 05/27/2023 LUNG VOLUMES LUNG VOLUMES PFT Routine FIELD (dyspnea on exertion) Chronic cough 04/28/2022 9:46 AM EST [facility] Work Phone: End: 08-05-2024 ARTIS DIAGNOSTIC RIGHT ARTIS DIAGNOSTIC RIGHT Radiology Routine Abnormal mammogram 1 Occurrences starting 07/07/2023 until 08/05/2024 [facility] Work Phone: Comment on above: 1 Occurrences starting 07/07/2023 until 08/05/2024 End: 06-12-2024 ARTIS SCREENING ARTIS SCREENING Radiology Routine Breast cancer screening by mammogram 1 Occurrences starting 05/14/2023 until 06/12/2024 [facility] Work Phone: Comment on above: 1 Occurrences starting 05/14/2023 until 06/12/2024 Measurement of keton es in urine using dipstick [facility] Work Phone: Microorganism identi fied in Unspecified specimen by Culture FUNGAL CULT + SMEAR Microbiology Routine Lichen sclerosus et atrophicus Pruritus 03/04/2022 3:36 PM EDT [facility] Work Phone: Microscopic urinalysis [facility] Work Phone: Njx anes&/strd w/img tfrml edrl lmbr/sac 1 lvl INJ TRANSFORAMINAL EPID ANES/STER LS SINGL Procedures Routine Spinal stenosis of lumbar region, unspecified whether neurogenic claudication present Radiculopathy, lumbar region 1 Occurrences starting 09/14/2022 [facility] Work Phone: Comment on above: 1 Occurrences starting 09/14/2022 Njx anes&/strd w/img tfrml edrl lmbr/sac 1 lvl INJ TRANSFORAMINAL EPID ANES/STER LS SINGL Procedures Routine Lumbar spondylosis Radiculopathy, lumbar region Ordered: 03/10/2024 [facility] Work Phone: Comment on above: Ordered: 03/10/2024 End: 02-10-2024 NM CARDIAC PERF STRESS/PHARM NM CARDIAC PERF STRESS/PHARM Radiology Routine Irregular heart rhythm FIELD (dyspnea on exertion) Premature atrial complexes PAC (premature atrial contraction) Mixed hyperlipidemia Carotid artery stenosis without cerebral infarction, bilateral Type 2 diabetes mellitus with peripheral neuropathy (HCC) Atypical chest pain 1 Occurrences starting 01/11/2023 until 02/10/2024 [facility] Work Phone: Comment on above: 1 Occurrences starting 01/11/2023 until 02/10/2024 OUTSIDE VENDOR CARDI AC OUTPATIENT EXTENDED RHYTHM RECORDING (WITHOUT TELEMETRY) OUTSIDE VENDOR CARDIAC OUTPATIENT EXTENDED RHYTHM RECORDING (WITHOUT TELEMETRY) Holter Routine Dyspnea on exertion Ordered: 11/03/2021 [facility] Work Phone: Comment on above: Ordered: 11/03/2021 Patient Education [facility] Work Phone: Patient referral [facility] Work Phone: pH of Urine [facility] Work Phone: PT PLAN OF CARE CERTIFICATION PT PLAN OF CARE CERTIFICATION Procedures Routine Spinal stenosis of lumbar region, unspecified whether neurogenic claudication present Lumbar spondylosis Radiculopathy, lumbar region Spondylolisthesis of lumbar region Ordered: 08/19/2022 [facility] Work Phone: Comment on above: Ordered: 08/19/2022 PT PLAN OF CARE CERTIFICATION PT PLAN OF CARE CERTIFICATION Procedures Routine Spinal stenosis of lumbar region, unspecified whether neurogenic claudication present Lumbar spondylosis Spondylolisthesis of lumbar region Radiculopathy, lumbar region Ordered: 11/06/2022 [facility] Comment on above: Ordered: 11/06/2022 Specific gravity of Urine [facility] Work Phone: End: 05-27-2023 SPIROMETRY WITH DILATOR IF OBSTRUCTED SPIROMETRY WITH DILATOR IF OBSTRUCTED PFT Routine FIELD (dyspnea on exertion) Chronic cough 1 Occurrences starting 04/27/2022 until 05/27/2023 [facility] Work Phone: Comment on above: 1 Occurrences starting 04/27/2022 until 05/27/2023 SPIROMETRY WITH DILA TOR IF OBSTRUCTED SPIROMETRY WITH DILATOR IF OBSTRUCTED PFT Routine FIELD (dyspnea on exertion) Chronic cough 04/28/2022 9:46 AM EST [facility] Work Phone: UA DIP B/O UA DIP B/O Lab R outine UTI symptoms Ordered: 01/10/2024 [facility] Work Phone: Comment on above: Ordered: 01/10/2024 Urinalysis, blood, qualitative [facility] Work Phone: Urine dipstick for glucose [facility] Work Phone: Urine dipstick for leukocyte esterase [facility] Work Phone: Urine dipstick for nitrite [facility] Work Phone: Urine dipstick for protein [facility] Work Phone: Urine examination [facility] Work Phone: Urine microscopy: epithelial cells [facility] Work Phone: Urine Microscopy: wh ite cells [facility] Work Phone: Urobilinogen [Presen ce] in Urine [facility] Work Phone: End: 08-05-2024 US BREAST LTD RIGHT US BREAST LTD RIGHT Radiology Routine Abnormal mammogram 1 Occurrences starting 07/07/2023 until 08/05/2024 [facility] Work Phone: Comment on above: 1 Occurrences starting 07/07/2023 until 08/05/2024 End: 08-12-2024 US Carotid arteries - bilateral US CAROTID ARTERIES [facility] Vascular Lab Routine Carotid stenosis, right 1 Occurrences starting 08/13/2023 until 08/12/2024 [facility] Work Phone: Comment on above: 1 Occurrences starting 08/13/2023 until 08/12/2024 End: 08-16-2023 US CAROTID ARTERIES [facility] US CAROTID ARTERIES [facility] Vascular Lab Routine Bilateral carotid artery stenosis 1 Occurrences starting 08/15/2022 until 08/16/2023 [facility] Work Phone: Comment on above: 1 Occurrences starting 08/15/2022 until 08/16/2023 End: 06-20-2023 XR DIGIT GENERAL 3V FRONTAL/LAT/OBL RIGHT XR DIGIT GENERAL 3V FRONTAL/LAT/OBL RIGHT Radiology Routine Finger injury, right, initial encounter 1 Occurrences starting 05/21/2022 until 06/20/2023 [facility] Work Phone: Comment on above: 1 Occurrences starting 05/21/2022 until 06/20/2023 End: 01-22-2025 XR Knee - right AP and Lateral XR KNEE LIMITED 2V AP/LAT RIGHT Radiology Routine Acute pain of right knee 1 Occurrences starting 12/24/2023 until 01/22/2025 [facility] Work Phone: Comment on above: 1 Occurrences starting 12/24/2023 until 01/22/2025 XR Knee - right AP a nd Lateral XR KNEE LIMITED 2V AP/LAT RIGHT Radiology Routine Acute pain of right knee 12/27/2023 1:54 PM EDT [facility] Work Phone: [facility] [...] Immunizations Immunization Date Immunization Notes Care Provider [facility] 03-29-2024 influenza, seasonal, injectable Moraima Montelongo MD Work Phone: [facility] 03-29-2024 influenza virus vacc ine, unspecified formulation Radha Walters MD Work Phone: [facility] 05-14-2023 COVID-19 vaccine, ag e 12+ yr, season (PFIZER-BIONTECH) Guillaume Dominguez MD Work Phone: [facility] 02-02-2023 influenza (HD-IIV4) vaccine, age 65+ yr, high dose, quadrivalent, PF (FLUZONE HIGH-DOSE) Josefa Caputo APRN.CONSULTING SERVICES ASSOCIATE Work Phone: [facility] Work Phone: 02-02-2023 influenza virus vacc ine, unspecified formulation Guillaume Dominguez MD Work Phone: [facility] 03-02-2022 COVID-19 booster vaccine, age 12+ yr, bivalent (PFIZER-BIONTECH) Mi Nurse Work Phone: [facility] Work Phone: 02-10-2022 influenza, high-dose , quadrivalent vaccine (FLUZONE HIGH DOSE QUADRIVALENT) Mi Nurse Work Phone: [facility] Work Phone: 04-14-2021 COVID-19 vaccine, ag e 12+ yr (PFIZER-BIONTECH - [facility]PLE [facility]) Curtis Nassar MD Work Phone: [facility] Work Phone: 03-03-2021 influenza, high-dose , quadrivalent vaccine (FLUZONE HIGH DOSE QUADRIVALENT) Curtis Nassar MD Work Phone: [facility] Work Phone: 08-01-2020 COVID-19 vaccine, ag e 12+ yr (PFIZER-BIONTECH - PURPLE [facility]) Curtis Nassar MD Work Phone: [facility] Work Phone: 07-11-2020 COVID-19 vaccine, ag e 12+ yr (PFIZER-BIONTECH - PURPLE [facility]) Curtis Nassar MD Work Phone: [facility] Work Phone: 03-07-2020 influenza, high-dose , quadrivalent vaccine (FLUZONE HIGH DOSE QUADRIVALENT) Curtis Nassar MD Work Phone: [facility] Work Phone: 02-25-2019 influenza, high dose seasonal, preservative-free Curtis Nassar MD Work Phone: [facility] 03-01-2018 influenza, high dose seasonal, preservative-free Curtis Nassar MD Work Phone: [facility] Work Phone: 03-03-2017 influenza, high dose seasonal, preservative-free Curtis Nassar MD Work Phone: [facility] 10-09-2016 tetanus and diphther ia toxoids, adsorbed, preservative free, for adult use (5 Lf of tetanus toxoid and 2 Lf of diphtheria toxoid) Curtis Nassar MD Work Phone: [facility] Work Phone: 09-01-2016 pneumococcal conjuga te vaccine, 13 valent Curtis Nassar MD Work Phone: [facility] 04-08-2016 influenza, high dose seasonal, preservative-free Curtis Nassar MD Work [facility]: [facility] [facility] Work Phone: 04-09-2015 influenza, high dose seasonal, preservative-free Curtis Nassar MD Work Phone: [facility] 03-16-2013 Influenza virus vaccine [facility] 01-25-2013 pneumococcal polysaccharide vaccine, 23 valent Curtis Nassar MD Work Phone: [facility] 09-30-2012 zoster vaccine, live Curtis chapman MD Work Phone: [facility] Work Phone: 06-04-2005 influenza virus vacc ine, unspecified formulation Curtis Nassar MD Work Phone: [facility] Work Phone: Payers Date Payer Category Payer Self-pay [id number] 2022 Medicare O HUMANA MEDICARE [id number] 2017 Medicare [id number] 2017 Medicare HUMANA MEDICARE HUMANA GOLD PLUS [id number] 2017-Present [phone] [place] [address] [id number] 2017 Medicare (Managed Care) HUMANA G OLD PLUS Member Subscriber Plan / Payer (Effective 2017-Present) Name: Miriam Davenport Relation to Subscriber: Self Name: Miriam Davenport Payer ID: [id number] (NAIC) Type: HMO Address: [place] [id number] 2017 Private Health Insurance [id number] Unknown [id number] 2.16.840.1.370476.3.579 .2.462 Unknown [id number] 2.16.840.1.270975.3.579 .2.462 Unknown [id number] 2.16.840.1.960181.3.579 .2.462 Unknown [id number] 2.16.840.1.572506.3.579 .2.462 Unknown [id number] 2.16.840.1.186790.3.579 .2.462 Unknown [id number] 2.16.840.1.039571.3.579 .2.462 Unknown [id number] 2.16.840.1.384468.3.579 .2.462 Unknown [id number] 2.16.840.1.249683.3.579 .2.462 Unknown [id number] 2.16.840.1.026294.3.579 .2.462 Unknown [id number] 2.16.840.1.957012.3.579 .2.462 Unknown [id number] 2.16.840.1.477639.3.579 .2.462 Unknown [id number] 2.16.840.1.814601.3.579 .2.462 Unknown [id number] 2.16.840.1.466913.3.579 .2.462 Unknown [id number] 2.16.840.1.020012.3.579 .2.462 Unknown [id number] 2.16.840.1.507884.3.579 .2.462 Unknown [id number] 2.16.840.1.961345.3.579 .2.462 Unknown [id number] 2.16.840.1.462854.3.579 .2.462 Unknown [id number] 2.16.840.1.169837.3.579 .2.462 Unknown [id number] 2.16.840.1.281143.3.579 .2.462 Unknown [id number] 2.16.840.1.242590.3.579 .2.462 Unknown [id number] 2.16.840.1.941474.3.579 .2.462 Unknown [id number] 2.16.840.1.773344.3.579 .2.462 Unknown [id number] 2.16.840.1.558041.3.579 .2.462 Unknown [id number] 2.16.840.1.005650.3.579 .2.462 Unknown [id number] 2.16.840.1.400003.3.579 .2.462 Unknown [id number] 2.16.840.1.404229.3.579 .2.462 Unknown [id number] 2.16.840.1.492921.3.579 .2.462 Unknown [id number] 2.16.840.1.288141.3.579 .2.462 Social History Date Type Detail Facility Start: 11-25-2010 End: 05-05-2024 Tobacco smoking status NHIS Never smoked tobacco [facility] Start: 08-22-2021 End: 08-03-2024 Alcohol intake Current non-drinker of alcohol (finding) [facility] Start: 1940 Sex Assigned At Not on file [facility] Start: 08-11-2021 End: 04-07-2022 Exposure to SARS-CoV-2 (event) Not sure [facility] Work Phone: Start: 09-28-2021 End: 10-08-2021 Exposure to SARS-CoV-2 (event) Unable to assess [facility] Work Phone: Start: 11-25-2010 Tobacco use and exposure Smokeless tobacco non-user [facility] Work Phone: Start: 02-16-2022 End: 06-12-2023 Tobacco smoking status NHIS Unknown if ever smoked [facility] Start: 08-27-2020 None [facility] Start: 08-27-2020 Spouse/ Signif icant Other [facility] Start: 02-16-2022 Non-smoker [facility] Start: 1940 Sex Assigned At Female [facility] Start: 10-05-2022 End: 11-10-2022 History of Social function [facility] Work Phone: Start: 10-05-2022 End: 11-10-2022 Tobacco use panel [facility] Work Phone: Adult Depression Screening Assessment 6 [facility] Work Phone: (I/We) worried wheth er (my/our) food would run out before (I/we) got money to buy more. Never true [facility] In the past 12 month s, was there a time when you were not able to pay the mortgage or rent on time? No [facility] Start: 07-31-2024 End: 09-01-2024 Sex Female (finding) [facility] Medical Equipment Procedure Code Equipment Code Equipment Origin al Text Equipment Identifier Dates ORIF, hip, using Gamma nail ([id number]) Orthopaedic bone screw, non-bioabsorbable, sterile [id number] FDA Start: 01-11-2024 ORIF, hip, using Gamma nail ([id number]) Orthopaedic bone screw, non-bioabsorbable, sterile ()[id number] FDA Start: 01-11-2024 ORIF, hip, using Gamma nail ([id number]) Femur nail, sterile [id number] [facility] Start: 01-11-2024 [id number][facility] Start: 11-09-2016 Comment on above: ONE TOUCH ULTRA [address] STRIPS TESTING 2 TIMES DAILY INSULIN NO DX E11.65 [id number], [id number], [id number], [id number], [id number], [id number] Start: 10-22-2020 End: 05-07-2024 Comment on above: Check sugars 3 times daily use to check sugars twice a day 1 Strip three times daily. Use as instructed DX: E11.42 Test blood sugar(s) 3 times daily. Dx: Other DM Code E11.42 Insulin: No ONE TOUCH ULTRA 2 TEST STRIPS TESTING 2 TIMES DAILY INSULIN NO DX E11.65 [id number] Start: 11-09-2016 End: 05-07-[address] us Bovine Collagen Matrix 3x3in Soft Tissue Patch - [id number] 3858823_[facility] Start: 05-06-[address] us Bovine Collagen Matrix 3x3in Soft Tissue Patch - [id number] 3858824_[facility] Start: 05-06-2024 Pangea Distal Fe mur Plate Left 280mm [id number] 3859075[facility] Start: 05-07-2024 Level One Neuro Screw Onedrive Drill Free 1.5 X 4 Mm Ti-6al-4v [id number] Ea - [id number] 3861615_[facility] Start: 05-06-2024 Comment on above: Description: Entered from worksheet. Screws are needed to attach the plates to the skull. L1 Neuro [place] Hl Cov Ultraone Contour W/Tab Scrw 6 Hl 18mm D T0.35mm Ti - [id number] Start: 05-06-2024 Lvl 1 Neuro Plt Ultraone Str W/Tab Scrw 4 Hole 22mm T0.35mm Ti-6al-4v 1ea - [id number] Start: 05-06-2024 Lvl 1 Neuro Plt Ultraone Str W/Tab Scrw 2 Hole 17mm T0.35mm Ti-6al-4v 1ea - [id number] Start: 05-06-2024 Screw Bone 3.5mm 36mm Axsos 3 Titanium Cortex Self Tap Lock Nonsterile - [id number] Start: 05-07-2024 Pangea Locking S crew 5mm X 65mm [id number] Start: 05-07-2024 Locking Screw, 5 .0mm / T20 / L75mm [id number] Start: 05-07-2024 Locking Screw, 5 .0mm / T20 / L70mm [id number] Start: 05-07-2024 Screw Bone 4.5mm 42mm Axsos 3 Titanium Cortex Self Tap Lock Nonsterile - [id number] Start: 05-07-2024 Locking Screw, 5 .0mm / T20 / L60mm [id number] Start: 05-07-2024 Locking Screw, 5 .0mm / T20 / L38mm [id number] Start: 05-07-2024 Screw Bone 3.5mm 32mm Titanium Cortical Lock Nonsterile Axsos 3 - [id number] Start: 05-07-2024 Screw Bone 3.5mm 34mm Titanium Cortical Nonsterile Axsos 3 - [id number] Start: 05-07-2024 Agent Avitene Collagen Hemostatic Microfibrillar Flour Sterile Latex Free 1 - [id number] 3858822_[facility] Start: 05-06-2024 Functional Status Date Assessment Result Facility 03-25-2019 Are you deaf, or do you have serious difficulty hearing No 03/25/2019 11:46 AM Lety Galloway RN No [facility] 03-25-2019 Are you blind, or do you have serious difficulty seeing, even when wearing glasses No 03/25/2019 11:46 AM Lety Galloway RN No [facility] 03-25-2019 Do you have serious difficulty walking or climbing stairs No 03/25/2019 11:46 AM Lety Galloway RN [facility] 03-25-2019 Do you have difficul ty dressing or bathing No 03/25/2019 11:46 AM Lety Galloway RN [facility] 03-25-2019 Because of a physica l, mental, or emotional condition, do you have difficulty doing errands alone such as visiting a physician's office or shopping No 03/25/2019 11:46 AM EDT Lety Lamas RN No [facility] Mental Status Date Assessment Result Facility 06-12-2023 Cognitive function Level Of Cons ciousness Awake;Alert;Appropriate;Fol lows Commands [facility] Work Phone: 02-16-2022 Cognitive function Voice/Name [facility] Work Phone: 03-25-2019 Because of a physica l, mental, or emotional condition, do you have serious difficulty concentrating, remembering, or making decisions No 03/25/2019 11:46 AM EDT Lety Lamas RN No [facility] Clinical Notes 01-05-2019 to 12-25-2024 Telephone Encounter - Hayley Nunn - 12/25/2024 3:49 PM EDTTelephone Encounter - Hayley Nunn - 12/25/2024 3:49 PM EDTTelephone Encounter - Hayley Nunn - 12/25/2024 10:43 AM EDT Note Date & Type Note Facility 12-25-2024 Telephone encounter Note Diflucan not worth it, patient already taking. Aquafor--was told to never to use an ointment, so did not use it. Using cornstarch to keep dry as best as possible, Patient is bedridden and cannot come in for an appointment. She has open lesions. Bad situation., Daughter needs an alternative [phone] [facility] 12-25-2024 Miscellaneous Notes Diflucan not worth it, patient already taking. Aquafor--was told to never to use an ointment, so did not use it. Using cornstarch to keep dry as best as possible, Patient is bedridden and cannot come in for an appointment. She has open lesions. Bad situation., Daughter needs an alternative [phone] Message left for patient's daughter, Hardy, asking how patient is doing. documented in this encounter [facility] 12-25-2024 Telephone encounter Note Message left for patient's daughter, Hardy, asking how patient is doing. [facility] 09-18-2024 History of Present illness Narrative POPULATION [...] 2024 1:13 PM documented in this encounter [facility] 08-17-2024 History of Present illness Narrative [...] 2024 1:28 PM documented in this encounter [facility] 08-16-2024 Telephone encounter Note Spoke with patient's daughter Lashaun and notified her of the Mounjaro dose change. Attempted to fax updated RX to [facility] at [phone] but it did not go through. Will try again later. Geno Moise RN [facility] 08-16-2024 Miscellaneous Notes Spoke with patient's daughter Lashaun and notified her of the Mounjaro dose change. Attempted to fax updated RX to [facility] at [phone] but it did not go through. Will try again later. Geno Moise RN Please call to let the Lashaun know that it is reasonable to reduce Mounjaro for now. I will send a prescription to her pharmacy for 2.5mg weekly. Once the appetite improves, she will likely need to resume 5mg dose. Thank you- Sasha Caldwell APRN.CONSULTING SERVICES ASSOCIATE Images from the original note were not included. This nurse reached out to Lashaun- She reports patient had a fall and hit her head- had a craniotomy- broke her femur- not walking at this time. Patient is now in [facility] for care home. She reports the nurse has reported to her that patients blood sugars have been low- typically in 70-90 range, highest one in the past month and 1/2 was 140. Patient is not eating as much as she was before- food is more regulated than it was in assisted living. Patient is also losing more weight than they had wanted. Nurse at [facility] is requesting review- possibly lower dose of mounjaro. Lashaun reports she picks up this medication and takes it to the [facility]. She uses [facility]- phone number [phone]. This nurse requested a log of recent blood sugars to be faxed to us from [facility]. [facility] requests a new order be faxed to [facility]- fax number to be provided via [employer]Bl[employer] message. Patients daughter Lashaun calling in asking for a call back to discuss lowering the dosage of patients medication. Her food has decreased and her sugar reading are lower and asking to lower tirzepatide (MOUNJARO) 5 mg/0.5 mL pen injector Please call Lashaun back [phone] Thank you Hope Delio SHORT August 09, 2024 11:59 AM documented in this encounter [facility] 08-16-2024 Telephone encounter Note Please call to let the Lashaun know that it is reasonable to reduce Mounjaro for now. I will send a prescription to her pharmacy for 2.5mg weekly. Once the appetite improves, she will likely need to resume 5mg dose. Thank you- Sasha Caldwell APRN.CONSULTING SERVICES ASSOCIATE [facility] 08-15-2024 Telephone encounter Note Images from the original note were not included. [facility] 08-10-2024 Telephone encounter Note This nurse reached out to Lashaun- She reports patient had a fall and hit her head- had a craniotomy- broke her femur- not walking at this time. Patient is now in [facility] for care home. She reports the nurse has reported to her that patients blood sugars have been low- typically in 70-90 range, highest one in the past month and 1/2 was 140. Patient is not eating as much as she was before- food is more regulated than it was in assisted living. Patient is also losing more weight than they had wanted. Nurse at [facility] is requesting review- possibly lower dose of mounjaro. Lashaun reports she picks up this medication and takes it [facility]. She uses [facility]- phone number [phone]. This nurse requested a log of recent blood sugars to be faxed to us from [facility]. [facility] requests a new order be faxed to [facility]- fax number to be provided via [employer] message. [facility] 08-09-2024 Telephone encounter Note Patients daughter Lashaun calling in asking for a call back to discuss lowering the dosage of patients medication. Her food has decreased and her sugar reading are lower and asking to lower tirzepatide (MOUNJARO) 5 mg/0.5 mL pen injector Please call Lashaun back [phone] Thank you Velvet SHORT August 09, 2024 11:59 AM [facility] 08-03-2024 History of Present illness Narrative NEUROSURGERY POST-OP NOTE Tika Jones MD Date of visit: August 03, 2024 Patient Name: Ms.Jacqueline Kayleigh Davenport Date of : 1940 Current Age: [age] year old Sex: female MRN/E# [id number] Last Office Visit: 08/01/2024 CLINICAL SUMMARY: KPS: [...] II, previous PE, on Eliquis presented to [facility] on [facility]24 as a trauma from [facility] with a right acute subdural hematoma with mass effect following a fall at an assisted living facility. CT scan of the brain completed at [facility] showed worsening SDH with 7mm right to [...] her own. She is currently residing at [facility]. She presents today with her [...] once every month. To be administered at [facility] by nurse 1 mL 12 oxybutynin ER [...] 103/56 Pulse 71 Resp 18 Ht 5' 5" (1.65m) SpO2 97% PHYSICAL EXAM: Patient is [...] some time. She was ultimately discharged to shelter facility. Of note the patient has baseline mild dementia. The daughter states that when she got to the shelter facility in early May she was back to close to her baseline mentation however over the last few weeks she is taken a significant decline from a mentation cognitive perspective. Of note, she has had recurrent UTIs which I think may be playing a factor. Her CT scan that was done yesterday shows complete resolution of her right subdural hematoma. I did relationship counselor her that the recovery of traumatic [...] plan. Tika Jones MD Department of Neurosurgery [facility] Jose Martin Belcher This note was partially generated using PowerReviews voice recognition system, and there may be some incorrect words, spellings, and punctuation that were not noted in checking the note before saving. documented in this encounter [facility] 08-03-2024 Note [facility] 08-01-2024 Telephone encounter Note [facility] from [facility] called [phone] called to inform that the needed the prior authorization number for patients CT scan. Provided referral # and authorization # as well. Notified Dr. Jones and primary nurse Sarika. Monika Fried RN [facility] 08-01-2024 Miscellaneous Notes [facility] from [facility] called [phone] called to inform that the needed the prior authorization number for patients CT scan. Provided referral # and authorization # as well. Notified Dr. Jones and primary nurse Sarika. Monika Fried RN documented in this encounter [facility] 07-04-2024 Telephone encounter Note I called [facility] and let her know that per MTM patient is now WBAT. Glendy Fry [facility] 07-04-2024 Miscellaneous Notes I called [facility] [...] Fry I spoke with [facility] @ the [facility] and x-rays were completed. I called [facility] and they emailed them. I forwarded to doctor to review. They also want to remove rebekah and they will email a pic for review. Glendy Fry 2 view L femur x-rays to be done on 05-29 with films to view Glendy Fry documented in this encounter [facility] 07-04-2024 Telephone encounter Note [facility]-called to see if we rec'd the films yet. I let her know we did not but I will call [facility] and have them emailed in. Glendy Fry [facility] 06-20-2024 Telephone encounter Note This Rx was cancelled upon discharge from [facility]~the trauma surgery team on 05/19. Patient should discuss with surgeon re resuming . [facility] Work Phone: 06-20-2024 Miscellaneous Notes This Rx was cancelled upon discharge from [facility]~the trauma surgery team on 05/19. Patient should discuss with surgeon re resuming . Images from the original note were not included. documented in this encounter [facility] 06-20-2024 Telephone encounter Note Images from the original note were not included. [facility] 06-09-2024 Telephone encounter Note Ivelisse, nurse, called and the patient's daughter is requesting the x-ray to be done sooner more like the beginning of July to see if there have been any changes. I will check with the doctor and call them back. Glendy Fry [facility] 06-01-2024 Telephone encounter Note X-rays were good, rebekah were able to be removed and [facility] will call with any further questions. Next x-ray to be done in 8 weeks. Glendy Fry [facility] 05-30-2024 Telephone encounter Note I spoke with [facility] @ the [facility] and x-rays were completed. I called [facility] and they emailed them. I forwarded to doctor to review. They also want to remove rebekah and they will email a pic for review. Glendy Fry [facility] 05-29-2024 Telephone encounter Note Kathrine from [facility] calling asking for a copy of patient immunizations to be faxed to [phone]. Printed and faxed as requested. [facility] 05-29-2024 Miscellaneous Notes Kathrine from [facility] calling asking for a copy of patient immunizations to be faxed to [phone]. Printed and faxed as requested. documented in this encounter [facility] 05-22-2024 Telephone encounter Note 2 view L femur x-rays to be done on 05-29 with films to view Glendy Fry [facility] 05-22-2024 Telephone encounter Note Faxed November 2023 ov notes to [facility], per Natalya request. Natalya needed ov notes that included medication list and problem list. Reports patient was d/c'd from [facility] to their shelter/rehab. Reports patient Dx: subdural hemorrage from a fall, and left knee fracture also from fall. [facility] 05-22-2024 Miscellaneous Notes Faxed November 2023 ov notes to [facility], per Natalya request. Natalya needed ov notes that included medication list and problem list. Reports patient was d/c'd from [facility] to their shelter/rehab. Reports patient Dx: subdural hemorrage from a fall, and left knee fracture also from fall. documented in this encounter [facility] 05-22-2024 Telephone encounter Note I spoke with the patient and scheduled an appointment. Glendy Fry [facility] 05-22-2024 Miscellaneous Notes I spoke with the patient and scheduled an appointment. Glendy Fry ----- Message from Natasha S sent at 05/22/2024 10:28 AM EST ----- [...] patient: Pamela or Angel Best contact number: [phone] Thank you, Natasha Nelson May 22, 2024 10:28 AM documented in this encounter [facility] 05-22-2024 Telephone encounter Note ----- Message from Natasha S sent at 05/22/2024 10:28 AM EST ----- [...] patient: Pamela or Angel Best contact number: [phone] Thank you, Natasha Nelson May 22, 2024 10:28 AM [facility] 05-19-2024 Note [facility] 05-18-2024 Note [facility] 05[facility]18-2024 Note [facility] 05-18-2024 Note [facility] 05[facility]17-2024 Note [facility] 05[facility]17-2024 Note [facility] 05-16-2024 Note [facility] 05[facility]16-2024 Note [facility] 05[facility]16-2024 Note [facility] 05-15-2024 Note [facility] 05[facility]15-2024 Note [facility] 05[facility]15-2024 Note [facility] 05-14-2024 Note [facility] 05-14-2024 Note [facility] 05-14-2024 Note [facility] 05-13-2024 Note [facility] 05-13-2024 Note [facility] 05-13-2024 Note HNO ID: [id number] Author: NOTE, INTERFACE, ? Service: ? Author Type: ? Type: Progress Notes Filed: 05/18/2024 16:04 Note Text: Epic Scheduled Downtime: 05/13/2024 1:00:00 AM to 05/13/2024 2:52:17 AM [facility] 05-12-2024 Note [facility] 05-12-2024 Note [facility] 05-12-2024 Note [facility] 05-11-2024 Note [facility] 05[facility]11-2024 Note [facility] 05-11-2024 Note [facility] 05[facility]11-2024 Note [facility] 05[facility]11-2024 Note [facility] 05-11-2024 Note [facility] 05-11-2024 Note [facility] 05-10-2024 Note [facility] 05-10-2024 Telephone encounter Note Last read by Shelley Davenport at 1:22 PM on 05/09/2024. Tnaa Tirado [facility] 05-10-2024 Miscellaneous Notes Last read by Shelley Davenport at 1:22 PM on 05/09/2024. Tana Tirado Images from the original note were not included. Adina Lay APRN.HIMA P [facility] Pool 6 [address] follow up with [address]. Walker 1st attempt Sent mc to call office. Jnoathon SHORT documented in this encounter [facility] 05-10-2024 Note [facility] 05-10-2024 Note [facility] 05-10-2024 Note [facility] 05-09-2024 Note [facility] 05-09-2024 Note [facility] 05-09-2024 Telephone encounter Note Images from the original note were not included. Adina Lay APRN.CONSULTING SERVICES ASSOCIATE P Dory Clerical Pool [address] follow up [address] Walker 1st attempt Sent mc to call office. Jonathon Morse PAC [facility] 05-09-2024 Note [facility] 05-09-2024 Instructions Adina Lay APRN.CNP - 05/09/2024 10:36 AM EST Plan: 1) stay on the same dose of Mounjaro 2) return to Dr. Rajiv Walker in 6 months documented in this encounter [facility] 05-09-2024 Note [facility] 05-09-2024 Note [facility] 05-08-2024 Note [facility] 05-08-2024 Note [facility] 05-08-2024 Note [facility] 05-08-2024 Note [facility] 05-07-2024 Note [facility] 05-07-2024 Note [facility] 05-07-2024 Note [facility] 05-07-2024 Note [facility] 05-07-2024 Note [facility] 05-07-2024 Note [facility] 05-07-2024 Note [facility] 05-07-2024 Note [facility] 05-06-2024 Note [facility] 05-06-2024 Note [facility] 05-06-2024 Note [facility] 05-06-2024 Note [facility] 05-06-2024 History of Present illness Narrative Images from the original note were not included. CRITICAL CARE TRANSPORT MEDICAL CONTROL CONSULT NOTE Patient Name: Miriam Davenport Service Date: May 06, 2024 Referring Facility: [facility] Accepting Facility: [facility] REASON FOR TRANSPORT: higher level of critical care services not available at the referring facility REASON FOR CONSULT: management of head bleed CCT MEDICAL CONTROL CONSULT SUMMARY: History, physical exam findings, and available background patient information from [facility] Transport Nurse were reviewed at the time of consult. Pertinent additional information was reviewed as follows: CCT transport request log In brief, Miriam Davenport is a 84 year old female with a history, known at time of consult, significant for dementia who presented to [facility] for evaluation of SAH s/p fall. [...] confirmed and read back via telephone with [facility] Transport family member caretaker, Santos Douglas RN SIGNATURE: Amanda Patterson APRN.CNP Acute Care Nurse Practitioner Critical Care Transport documented in this encounter [facility] 05-05-2024 History of Present illness Narrative DISTANCE HEALTH VISIT This Team Access Model visit is a virtual encounter. It required patient-provider interaction for the medical decision making as documented below. I have communicated my name and active licensure. The patient's identity and physical location were verified at the time of this visit. Either the patient or their legal field service representative has been informed of the risks [...] Making Level: 4 - Moderate Adina Lay APRN.CONSULTING SERVICES ASSOCIATE (Signed electronically to expedite mailing) Data Review liv Ruiz has iPhone=[employer] ([phone]) History Diabetes type 2, dx 1990 last eye exam November, had cataract surgery, no DM eye disease December 2022, though has early macular degen no hx CA, stroke, claudication, intolerant of statins, niacin and [...] x 3. 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 Tape [Other] documented in this encounter [facility] 05-03-2024 Telephone encounter Note Appointment needs to be rescheduled with Dr. Raymundo Jensen [facility] 05-03-2024 Miscellaneous Notes Appointment needs to be rescheduled with Dr. Raymundo Jensen documented in this encounter [facility] 04-28-2024 Instructions Guillaume Dominguez MD - [...] Montelongo in May. - Next appointment with senior network security architect Adina Lay on May 05. - Schedule an appointment with Dr. Knott for dementia evaluation. documented in this encounter [facility] 04-28-2024 History of Present illness Narrative This note was created using [employer]. Subjective Miriam Davenport is a 84 year [...] which she discontinued 2 years ago with finish grinder approval. She is not currently following with a finish grinder. 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 To be administered at [facility] by nurse apixaban (ELIQUIS) 5 mg tab(s) [...] Height as of 10/11/23: 165.1 cm (5' 5"). Weight as of this encounter: 83.6 kg [...] was 6.3% in January. - Follow-up with senior network security architect Adina Lay on May 05. # Vitamin [...] which included preparing to see the patient, [id number] patient care, completing clinical documentation, obtaining and/or reviewing separately obtained history, performing a medically appropriate examination, and counseling and educating the patient/family/caregiver. Guillaume Dominguez MD documented in this encounter [facility] 04-14-2024 Telephone encounter Note Received voicemail [...] something scheduled soon. My phone number is [phone]. I am her medical proxy. Thank you." Left L4-5 lumbar transforaminal epidural steroid injection 03-30-[address] Montelongo Last office visit with Nic Garcia APRN.CONSULTING SERVICES ASSOCIATE 03-10-24 Call to patient's daughter. Started at 9/10 pain level prior to injection, the injection has taken the pain down to a 5/10, but now within the past week it has gone back up to 7/10. She is able to walk, but pain is increasingly going up. Spoke to HAZEL Hough who recommended patient seeing Dr. Montelongo versus Oralia Garcia APRN.CNP. Will have PSS reach out to daughter Hardy to schedule. Informed daughter of OTC remedies patient can use as long as there are no other contraindications including tylenol/ibuprofen, lidocaine/voltaren gel, ice/heat, rest. She verbalized understanding. [facility] 04-14-2024 Miscellaneous Notes Received voicemail 04-14-24 at 12:04 PM. Ok my name is Hardy. I'm calling in regard to Miriam Davenport, 1940. She had an injection [address] Montelongo and she needs to get another back injection. I don't know what else you need. I am her daughter. Please call me back and hopefully get something scheduled soon. My phone number is [phone]. I am her medical proxy. Thank you." Left L4-5 lumbar transforaminal epidural steroid injection 03-30-[address] Montelongo Last office visit with Nic Garcia APRN.CONSULTING SERVICES ASSOCIATE 03-10-24 Call to patient's daughter. Started at 9/10 pain level prior to injection, the injection has taken the pain down to a 5/10, but now within the past week it has gone back up to 7/10. She is able to walk, but pain is increasingly going up. Spoke to HAZEL Hough who recommended patient seeing Dr. Montelongo versus Oralia Garcia APRN.CONSULTING SERVICES ASSOCIATE. Will have PSS reach out to daughter Hardy to schedule. Informed daughter of OTC remedies patient can use as long as there are no other contraindications including tylenol/ibuprofen, lidocaine/voltaren gel, ice/heat, rest. She verbalized understanding. documented in this encounter [facility] 03-10-2024 Telephone encounter Note Procedure: Left L4-5 TFESI Procedure Date: 03/30/2024 Cardiac Clearance: Eliquis Cardiac Clearance letter generated and faxed to patient's PCP, Dr. Guillaume Dominguez, for approval to hold Eliquis for two days prior to injection procedure. Fax confirmation received. Awaiting determination. [facility] 03-10-2024 Miscellaneous Notes Procedure: Left L4-5 TFESI Procedure Date: 03/30/2024 Cardiac Clearance: Eliquis Cardiac Clearance letter generated and faxed to patient's PCP, Dr. Guillaume Dominguez, for approval to hold Eliquis for two days prior to injection procedure. Fax confirmation received. Awaiting determination. documented in this encounter [facility] 03-10-2024 History of Present illness Narrative Subjective Miriam Davenport presents to [facility] Pain Management Department for a follow up [...] which included preparing to see the patient, qsut-cr-[id number] patient care, completing clinical documentation, performing a [...] above and verbalized understanding. Oralia Garcia APRN, CONSULTING SERVICES ASSOCIATE March 10, 2024 documented in this encounter [facility] 02-01-2024 Note [facility] 01-13-2024 Miscellaneous Notes Daughter Hardy called to get a list of pt's allergies to [facility]. Pt broke her hip on Wednesday01-10-24 and had surgery on 01-11-24. Pt now in TCU at [facility]. Pt was given Hydrocodone and daughter reports pt is allergic to this. Pt is itching and daughter is upset because they never contacted her. I called TCU and got their fax and faxed over the allergy list. Faxed the snapshot over to [phone], attn: Martine. Marquita Mclaughlin LPN documented in this encounter [facility] 01-13-2024 Telephone encounter Note Daughter Hardy called to get a list of pt's allergies to [facility]. Pt broke her hip on Wednesday01-10-24 and had surgery on 01-11-24. Pt now in TCU at [facility]. Pt was given Hydrocodone and daughter reports pt is allergic to this. Pt is itching and daughter is upset because they never contacted her. I called TCU and got their fax and faxed over the allergy list. Faxed the snapshot over to [phone], attn: Martine. Marquita Mclaughlin LPN [facility] 01-12-2024 Note [facility] 01-12-2024 Note [facility] 01-10-2024 History of Present illness Narrative [...] 3 - Low documented in this encounter [facility] 01-10-2024 Instructions Comfort Patterson APRN.NANNETTE - 01/10/2024 11:56 AM EDT Images from [...] treated. A physician, nurse practitioner or physician assistant to the president may treat with a short course of [...] if symptoms resolve. documented in this encounter [facility] 12-27-2023 History of Present illness Narrative [...] PATIENT PRESENTS WITH AN IMPLANTABLE OR ATTACHED JANITOR CARETAKER: No RADIOLOGY DEPARTMENT: General X-ray: Exam(s) Completed: Lower Extremity X-Ray(s): Knee, AP / LAT Right PERIPHERAL IV DATA: Not applicable SIGNED BY: RT Luis(R) December 27, 2023 1:34 PM documented in this encounter [facility] 12-24-2023 History of Present illness Narrative Images from the original note were not included. SUBJECTIVE Miriam Davenport is a 83 year old female here today for acute concern. Chief Complaint Patient presents with: Pain: bilateral knee for about 2 weeks denies any recent injury HPI Miriam Davenport is a 83 year old female. She is an established patient of Guillaume Doimnguez MD. Here today acutely for right knee [...] once every month. 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 Osteopenia - 04/20/2008 Comment: 2012 t score -1.7 at [facility] Contact Dermatitis and Other Eczema, Due to Unspecified Cause - 12/07/2007 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 Anxiety State - 07/28/2007 Pernicious Anemia - 04/13/2007 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 - 03/29/2007 Eating Disorder, Unspecified - 03/29/2007 Occlusion and Stenosis of Carotid Artery Without Mention of Cerebral Infarction - 03/09/2006 Comment: mild stenosis shown on u/s at [facility] u/s repeated 02/02/07 with no change Calculus of Gallbladder Without Mention of Cholecystitis Or Obstruction - 04/09/2005 Comment: No evidence obstruction on HIDA scan 03/04 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 12/24/2023 by Josefa Caputo APRN.CONSULTING SERVICES ASSOCIATE Although Ultram/tramadol is not a narcotic it [...] appointment.. MINOR Perez documented in this encounter [facility] 12-21-2023 Telephone encounter Note Daughter, Lashaun, reports patient is out of test strips. [...] Chisholm RN December 21, 2023 1:12 PM [facility] 12-21-2023 Miscellaneous Notes Daughter, Lashaun, reports patient is out of test strips. [...] 2023 1:12 PM documented in this encounter [facility] 12-10-2023 History of Present illness Narrative This note was created using [employer]. Subjective Miriam Davenport is a 83 year old female. Patient presents with: F/U 6 months SUBJECTIVE: Miriam Davenport is a 83 year old year old lady here today for 6 month follow up appointment for review of medical conditions. Doing well at [facility]. Likes their rooms (there with her ). [...] Would like to pursue geriatric consultation in [place]. 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 REGULATORY ATTORNEY outside facility Apr 1997 MORBID OBESITY 08/18/2007 Obstructive sleep apnea Sleep study 2003 Occlusion and stenosis of carotid artery without mention of cerebral infarction 03/09/2006 mild stenosis shown on u/s at [facility] u/s repeated 02/02/07 with no change Open fracture of tuft of distal phalanx of finger 05/06/2022 PAC (premature atrial contraction) Pulmonary embolism (HCC) Pure hypercholesterolemia Type II or unspecified type diabetes mellitus with renal manifestations, uncontrolled(250.42) Unspecified glaucoma(365.9) Unspecified pruritic disorder Current Outpatient Medications Medication Sig cyanocobalamin 1,000 mcg/mL Inject 1 mL intramuscularly once every month. To be administered at [facility] by nurse apixaban (ELIQUIS) 5 mg tab(s) [...] Abs Lymph 1.00 - 4.00 k/uL 1.35 Sanborn% % 8.4 Abs Sanborn <0.87 k/uL 0.70 Eosin% % 1.7 Abs [...] as discussed. Patient wants to stay in [place] 2. Type 2 diabetes mellitus with peripheral [...] keep trying to eat healthy diet at [facility]. Will verify when will need refills for meds since getting through them now. Noted has done well with gradual weight loss--about 14 pounds since end of April. BMI still over 30. Plan to get labs after has consult to Geriatrics since labs were overall good in July and they may want to do some labs too. Will file some labs to do with theirs. Guillaume Dominguez MD documented in this encounter [facility] 11-12-2023 Telephone encounter Note Daughter calls asking about status of request. Daughter notified that order was faxed over to [facility] this am. Tabitha Madrid RN [facility] 11-12-2023 Miscellaneous Notes Daughter calls asking about status of request. Daughter notified that order was faxed over to [facility] this am. Tabitha Madrid RN [facility] and [facility] can be [facility] to them at [phone]. Prescription faxed See if faxed of order that was printed is what they need. Otherwise, call in the order if that is what they need Patient's request for medication is as follows: Requested Prescriptions Signed Prescriptions Disp Refills cyanocobalamin 1,000 mcg/mL 1 mL 12 Sig: Inject 1 mL intramuscularly once every month. To be administered at [facility] by nurse Authorizing Provider: GUILLAUME DOMINGUEZ Prescription(s) printed as above. Please process accordingly. Daughter (Hardy) calls to report that patient is now residing at [facility] and they are able to give patient her monthly B-12 injections. Daughter requests that an order for [facility] be given so that they are able to administer medication. [facility]: [phone] Patient cancelled last weeks appointment so is due anytime for injection. Please review and advise. Anne Jennings RN documented in this encounter [facility] 11-12-2023 Telephone encounter Note Spoke with nurse a [facility] and she states prescription can be faxed to them at [phone]. Prescription faxed [facility] 11-11-2023 Telephone encounter Note See if faxed of order that was printed is what they need. Otherwise, call in the order if that is what they need Patient's request for medication is as follows: Requested Prescriptions Signed Prescriptions Disp Refills cyanocobalamin 1,000 mcg/mL 1 mL 12 Sig: Inject 1 mL intramuscularly once every month. To be administered at [facility] by nurse Authorizing Provider: GUILLAUME DOMINGUEZ Prescription(s) printed as above. Please process accordingly. [facility] 11-11-2023 Telephone encounter Note Spoke to patient's daughter and confirmed that [facility] address was correct and she provided the room number, which is 186. Letter has been put in the mail. [facility] 11-11-2023 Miscellaneous Notes Spoke to patient's daughter and confirmed that [facility] address was correct and she provided the room number, which is 186. Letter has been put in the mail. documented in this encounter [facility] 11-08-2023 Telephone encounter Note Daughter (Hardy) calls to report that patient is now residing at [facility] and they are able to give patient her monthly B-12 injections. Daughter requests that an order for [facility] be given so that they are able to administer medication. Per daughter: [facility] Nurse Line: [phone] Patient cancelled last weeks appointment so is due anytime for injection. Please review and advise. Anne Jennings RN [facility] 10-29-2023 Instructions Curtis Nassar MD - 10/29/2023 4:16 PM EDT [...] to Dr. Rajiv Walker in 6 months Curtis Nassar MD documented in this encounter [facility] 10-29-2023 History of Present illness Narrative [...] to Dr. Rajiv Walker in 6 months Curtis Nassar MD Data Review daughter Hardy has iPhone=[employer] ([phone]) History Diabetes type 2, dx 1990 last eye exam November, had cataract surgery, no DM eye disease December 2022, though has early macular degen no hx CA, stroke, claudication, intolerant of statins, niacin and welchol does have hx PE so is on chronic anticoag sugars fasting 110, midday 130s Maryan helps with sugars, weight stable. Loves this [...] x 3. 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 Tape [Other] documented in this encounter [facility] 10-29-2023 Telephone encounter Note The following approved medication requests have been transmitted electronically. Requested Prescriptions Pending Prescriptions Disp Refills apixaban (ELIQUIS) 5 mg tab(s) 60 tablet 11 Sig: Take 1 tablet by mouth two times a day. Guillaume Dominguez MD [facility] 10-29-2023 Miscellaneous Notes The following approved [...] you. Natalya Byrd. documented in this encounter [facility] 10-29-2023 Telephone encounter Note Daughter calls to let provider know she only has enough Eliquis to last through tomorrow 10/30/2023. Anne Jennings, RN [facility] 10-28-2023 Telephone encounter Note Patient has [...] 12/10/2023 Please advise. Thank you. Natalya Byrd. [facility] Work Phone: 10-11-2023 History of Present illness Narrative SUBJECTIVE: RSV Vaccine(1 - 1-dose 60+ series) Never done Diabetic Foot Exam due on 09/23/2016 Behavioral Health Screening Never done Covid-19 Vaccine( season) due on 09/13/2023 HPI Miriam Davenport is a 83 year [...] life, to pay for his care at SNF, currently admitted following a stroke and experiencing Parkinson's. Notes she plans to go to assisted living at [facility].She notes currently getting assistance with medications from [...] Has seen Dr Alegre and Dr. Schmitt [facility] cardiologists. 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) - ICD9: 250.02, ICD10: E11.65 (primary diagnosis) - Controlled - Continue current medications 2. Mixed hyperlipidemia - ICD9: 272.2, ICD10: E78.2 controlled - Continue current medications - Endorse healthy diet and regular exercise 3. Class 3 severe obesity due to excess calories with serious comorbidity and body mass index (BMI) of 40.0 to 44.9 in adult (HCC) - ICD9: 278.01, V85.41, ICD10: E66.01, Z68.41 [...] appointment 12/09 at 3:25pm MD Comfort Acosta APRN.PLANT CONTROL AIDE Medical Decision Making: Problems: Moderate: 2+ stable chronic illnesses Data: Unique test result(s) reviewed: 3+ Risk: Low: Low risk from testing/treatment Medical Decision Making Level: 4 - Moderate documented in this encounter [facility] 10-08-2023 Telephone encounter Note Yes she can go back on Mounjaro 5 mg once a week. She can take Mounjaro 1 week after taking ozempic. If there is a shortage of Mounjaro, she will need 1 mg of ozempic (not 0.5 mg). [facility] [place] Rajiv Walker MD [facility] 10-08-2023 Miscellaneous Notes Yes she can go back on Mounjaro 5 mg once a week. She can take Mounjaro 1 week after taking ozempic. If there is a shortage of Mounjaro, she will need 1 mg of ozempic (not 0.5 mg). [facility] Rajiv Walker MD Pts daughter states pt took Ozempic starting 10/02/23, since Mounjaro was on back order, and her blood sugars have been high ever since. She states [facility] in [place] contacted pt to let her know medication was back in stock. She would like to know if it would be okay for pt to switch back to Mounjaro for her next dose, this Wednesday. [facility] [phone] documented in this encounter [facility] 10-07-2023 Telephone encounter Note Pts daughter states pt took Ozempic starting 10/02/23, since Mounjaro was on back order, and her blood sugars have been high ever since. She states [facility] in [place] contacted pt to let her know medication was back in stock. She would like to know if it would be okay for pt to switch back to Mounjaro for her next dose, this Wednesday. [facility] [phone] [facility] 10-04-2023 History of Present illness Narrative Patient presents for B-12 injection. Denies any problems at this time. Patient instructed on any SE of medication, verbalized understanding and agreed to proceed with treatment. Tolerated injection well. Ning Mckeon LPN documented in this encounter [facility] 09-29-2023 Note Addended by: RAJIV WALKER on: 09/29/2023 08:01 PM Modules accepted: Orders [facility] 09-29-2023 Miscellaneous Notes Addended by: RAJIV [...] does not have any Mounjaro. Hardy, daughter: [phone] documented in this encounter [facility] 09-29-2023 Telephone encounter Note She can [...] mg once a week. Rajiv Walker MD [facility] 09-29-2023 Telephone encounter Note RN returned phone call. Let patient's daughter Hardy know that once the provider reviews chart, we'll get back to her with alternative prescription. 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 PSS: it is ok to transfer Hardy's call. [facility] 09-28-2023 Telephone encounter Note September 28, 2023 3:13 PM Patient's daughter called about the Mounjaro medication for patient. She is concerned as there is a national backorder on the Mounjaro medication. She wants to know if there is an alternative or what can be done in the meantime. Patient currently does not have any Mounjaro. Hardy, daughter: [phone] [facility] 09-17-2023 Miscellaneous Notes The following approved [...] you. Jeanne Davalos. documented in this encounter [facility] 09-06-2023 History of Present illness Narrative Patient presents for B-12 injection. Denies any problems at this time. Patient instructed on any SE of medication, verbalized understanding and agreed to proceed with treatment. Tolerated injection well. Ning Mckeon LPN documented in this encounter [facility] 08-16-2023 Miscellaneous Notes Pts daughter called [...] provider sends a new script in to [facility] for 20 mg take 2 tablets daily, [employer] will cover that. Called and confirmed with [facility] pharmacist that they had run the 40 [...] leave a voicemail. documented in this encounter [facility] 08-16-2023 Miscellaneous Notes DNR comfort care orders faxed to [facility] Medical Records at [phone]. Copy also sent to scanning as well as copy mailed to patients home address as requested. MICHAEL Vazquez documented in this encounter [facility] 08-13-2023 Miscellaneous Notes This was already done. Pharmacy notified. Pharmacy reports Cymbalta 40 mg needs a PA. PRIOR AUTHORIZATION Medication for Prior Authorization: Duloxetine Cymbalta 40 mg Other formulary meds available : NO Insurance Company: [employer] Medicare part D Insurance [employer] phone number: [phone] Patient insurance ID number: [id number] Marquita Mclaughlin LPN documented in this encounter [facility] 08-13-2023 Miscellaneous Notes Images from the original note were not included. Prior authorization approved Payer: [facility] [phone] PA Case: [id number], Status: Approved, Coverage Starts on: 05/31/2023 12:00:00 [...] To be filled at: e- [id number] [place] [address] - [address] [facility] [phone] [id number] Electronic PA completed for duloxetine (cymbalta) documented in this encounter [facility] 08-13-2023 Instructions Josefa Caputo APRN.HIMA - 08/13/2023 11:20 AM EDT Plan to see Dr. Knott with geriatrics here in [place] sometime in November or after. documented in this encounter [facility] 08-13-2023 History of Present illness Narrative [...] brain health/wellness. has had x2 strokes, in shelter. 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 Osteopenia - 04/20/2008 Comment: 2012 t score -1.7 at [facility] Contact Dermatitis and Other Eczema, Due to Unspecified Cause - 12/07/2007 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 Anxiety State - 07/28/2007 Pernicious Anemia - 04/13/2007 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 - 03/29/2007 Eating Disorder, Unspecified - 03/29/2007 Occlusion and Stenosis of Carotid Artery Without Mention of Cerebral Infarction - 03/09/2006 Comment: mild stenosis shown on u/s at [facility] u/s repeated 02/02/07 with no change Calculus of Gallbladder Without Mention of Cholecystitis Or Obstruction - 04/09/2005 Comment: No evidence obstruction on HIDA scan 03/04 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) - ICD9: 296.22, ICD10: F32.1 (primary diagnosis) Increase Cymbalta to 40 mg daily from 20 mg daily. 2. Carotid stenosis, right - ICD9: 433.10, ICD10: I65.21 Update carotid ultrasound. - US CAROTID ARTERIES [facility] 3. Memory deficit - ICD9: 780.93, ICD10: R41.3 Planning to follow up with geriatrics, would like to see Dr. Knott once seeing patient here in [place]. 4. Anxiety disorder, unspecified type - ICD9: [...] Josefa Caputo APRN-HIMA documented in this encounter [facility] 08-11-2023 Instructions Martha Germain DO - 08/11/2023 9:59 AM EDT Appointments: - [facility]: [phone] (option 1). This is a series of 6 group visits where you will learn how to improve your memory with a healthy lifestyle. It is available as a virtual visit or in [place] on Wednesdays 10-noon, 6 visits every other week. Next group starts January 04. - [facility] Successful Aging Program (geriatrics): [phone] Follow these guidelines to improve your memory and brain function: - Follow the MIND Diet as closely as possible. See the dietary guidelines below. - Do some form of physical activity every day, even for 5-10 minutes. The goal is to move more and sit less. See the physical activity guidelines below. Find an exercise class at the [facility] and go once a week. - Engage in social activities as much as possible. Talking to other people is good for the brain! - Consider volunteering. It provides social interaction, purpose, structure, and a way to give back to the community. Opportunities can be found at [email or web address] - Play games at least 3x/week that will stimulate and challenge your brain. Brain games are available on the following websites: [employer] and [employer]. - Practice meditation or deep breathing for a few minutes each day. You can sit quietly and focus on your breath or listen to a guided meditation on the free madhavi "Insight Timer". MIND Diet guidelines: - Eat 1/2 cup [...] fish and fish high in mercury (swordfish, Montserratian sea raya, orange roughy, ahi tuna, albacore [...] squats, lunges, plank pose, etc.) Resources: - "Keep Sharp: Build a Better Brain at any Age" by Dr. Sonu Tsang - Search for videos about Alzheimer's Disease at www.nutritionFlavours.org - Read about modifiable risk factors in the following article online: Dementia prevention, intervention, and care: 2020 report of the Lancet Commission - Great resource in [place] for patients and families: Microtask [email or web address]://[email or web address]/ - Memory Cafes (A Dementia Friendly LIFE) in [place], [place], and [place]. [email or web address] - We Care program for caregivers through [facility]: [phone] or [email or web address] Memory research at [facility]: The [facility] at [facility] and [place], [place] is conducting clinical trials to advance new treatments and diagnostic approaches for patients with memory loss, as well as cognitively normal patients. To learn more about current trials at [facility] please call the [facility] Research Line at [phone], leave a message and one of our staff will contact you. documented in this encounter [facility] 08-11-2023 History of Present illness Narrative [facility] SUBJECTIVE: Miriam Davenport is a 83 year old female with a pertinent PMH as listed below who presents for a cognitive screening and assessment of modifiable risk factors of cognitive decline. Consultation requested by Comfort Patterson APRN.CNS for an opinion regarding Miriam Davenport. My [...] be coming home soon. Hardy lives in [place] and comes 2x/month to help out. She [...] activity None Social history: Home: lives in [place] ( is in SNF) Work: retired at age 80 from [employer] Education: 15 years Alcohol: none Supplements: iron, 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 per REGULATORY ATTORNEY outside facility Apr 1997 MORBID OBESITY 08/18/2007 Obstructive sleep apnea Sleep study 2003 Occlusion and stenosis of carotid artery without mention of cerebral infarction 03/09/2006 mild stenosis shown on u/s at [facility] u/s repeated 02/02/07 with no change [...] for infectious vulvitis Blood-Glucose Meter,Continuous (DEXCOM G7 ROPE COILING MACHINE OPERATOR) [facility] use to check sugars Blood-Glucose Sensor (DEXCOM [...] (1 is true, 0 is false): 0 [place] Cognitive Assessment (MoCA): 22 Score of 26 [...] benefit from the [facility] to learn the tools to protect against cognitive decline and improve working memory. The [facility] will provide education on the evidence-based aspects of a healthy lifestyle that can positively impact cognitive function (nutrition, physical activity, restorative sleep, stress management). Assessments completed in clinic today will be scanned into the medical record. (G31.84) Mild cognitive impairment (primary encounter diagnosis) Comment: MOCA Plan: CONSULT TO GERIATRICS, CONSULT TO [facility] Today we reviewed: Modifiable risk factors of cognitive decline Referrals: [facility] Geriatrics Successful Aging Program Lifestyle recommendations to [...] games are available on the following websites: [employer]he, [employer], and CleanFish. - Practice meditation or deep breathing for a few minutes each day. You can sit quietly and focus on your breath or listen to a guided meditation on an madhavi such as ID Watchdog. - Resources provided including information on memory research at the . (G47.33) ASIM (obstructive sleep apnea) Comment: untreated Plan: She declines referral to sleep medicine and does not want to address this now. Discuss at a future visit. Return after [facility] I spent 65 minutes in dptv-wg-jprx time with the patient of which greater than 50% of the time was spent in counseling and coordination of care. Martha Germain DO, MPH Wellness and Preventive Medicine [facility] Brain Health CC: Comfort Patterson [id number] [facility] [id number] documented in this encounter [facility] 08-02-2023 History of Present illness Narrative Patient presents for B-12 injection. Denies any problems at this time. Patient instructed on any SE of medication, verbalized understanding and agreed to proceed with treatment. Tolerated injection well. Ning Mckeon LPN documented in this encounter [facility] 07-29-2023 Instructions Milla Lara RN - [...] Radha Walters MD documented in this encounter [facility] 07-29-2023 History of Present illness Narrative 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 per REGULATORY ATTORNEY outside facility Apr 1997 MORBID OBESITY 08/18/2007 Obstructive sleep apnea Sleep study 2003 Occlusion and stenosis of carotid artery without mention of cerebral infarction 03/09/2006 mild stenosis shown on u/s at [facility] u/s repeated 02/02/07 with no change [...] a day for infectious vulvitis Blood-Glucose Meter,Continuous (DEXMingyian G7 ROPE COILING MACHINE OPERATOR) [facility] use to check sugars Blood-Glucose Sensor (DEXCOM [...] Past Histories independently gathered by the clinical sales support assistant and the remaining scribed note accurately describes my personal service to the patient. I spent a total of 30 minutes on the date of the service which included preparing to see the patient, [id number]-[id number] patient care, completing clinical documentation, obtaining and/or [...] Walters MD' 08/11/23 documented in this encounter [facility] 07-21-2023 History of Present illness Narrative [...] PATIENT PRESENTS WITH AN IMPLANTABLE OR ATTACHED JANITOR CARETAKER: No RADIOLOGY DEPARTMENT: Mammography PERIPHERAL IV DATA: Not applicable SIGNED BY: RT Chioma(R) July 21, 2023 3:33 PM documented in this encounter [facility] 07-08-2023 History of Present illness Narrative 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 per REGULATORY ATTORNEY outside facility Apr 1997 MORBID OBESITY 08/18/2007 Obstructive sleep apnea Sleep study 2003 Occlusion and stenosis of carotid artery without mention of cerebral infarction 03/09/2006 mild stenosis shown on u/s at [facility] u/s repeated 02/02/07 with no change [...] 473 mL 11 Blood-Glucose Meter,Continuous (DEXCOM G7 ROPE COILING MACHINE OPERATOR) [facility] use to check sugars (Patient not taking: [...] by mouth once daily. 0 0 pnv/iron,carb/om-3/fa/fat 1(PRE-JIMY MULTIVITAMINS WITH MINERALS 27 MG-1 MG-300 MG CAP) Take 1 capsule by mouth once daily. 0 0 Current Facility-Administered Medications Medication Dose Route Frequency Provider Last Rate Last Admin cyanocobalamin 1,000 mcg injection 1,000 mcg INTRAMUSCULAR q 1 MONTH Josefa Caputo APRN.CONSULTING SERVICES ASSOCIATE 1,000 mcg at 07/05/23 1336 perflutren lipid [...] Abs Lymph 1.00 - 4.00 k/uL 1.90 [place]% % 8.5 Abs [place] <0.87 k/uL 0.78 Eosin% % 2.0 Abs [...] Rajiv Walker MD documented in this encounter [facility] 07-07-2023 Miscellaneous Notes Called pt and [...] orders are signed. documented in this encounter [facility] 06-25-2023 Instructions Nhi De La Torre APRN.CNP - 06/25/2023 2:59 PM EST Continue the same medications for now. Stress test and echo were both normal - you have a strong heart and no evidence of decreased blood flow to the heart muscle. I will send a new Rx for the Metoprolol to [facility]. Follow up in 1 year. documented in this encounter [facility] 06-25-2023 History of Present illness Narrative Images from the original note were not included. [facility] [place] Lonnie Brandon Department of Cardiovascular Medicine SECTION [...] which included preparing to see the patient, [id number] patient care, completing clinical documentation, performing a [...] the follow up. Nhi De La Torre APRN.[facility] Cardiology Nurse Practitioner Section of Regional Cardiology [facility] Dept of Cardiovascular Medicine [place] [facility] [place] [address] [place], [place] [id number] Office Office June 25, 2023 2:41 PM This note was partially generated using PowerReviews voice recognition system and may contain errors [...] NORMAL VARIANT Confirmed by MD KIMBERLY, QARAB ([id number]) on 01/13/2023 3:53:16 PM LABS: Sodium (mmol/L) [...] 13.2 10/10/2020 12.9 No results found for: "PROBNP" No results found for: "HSTNT" Cholesterol, Total (mg/dL) Date Value 05/18/2023 182 [...] 118/68 Pulse 72 Ht 165.1 cm (5' 5") Wt 95.5 kg (210 lb 8.6 oz) 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 per REGULATORY ATTORNEY outside facility Apr 1997 MORBID OBESITY 08/18/2007 Obstructive sleep apnea Sleep study 2003 Occlusion and stenosis of carotid artery without mention of cerebral infarction 03/09/2006 mild stenosis shown on u/s at [facility] u/s repeated 02/02/07 with no change [...] ROS obtained by others. Nhi De La Torre APRN.CONSULTING SERVICES ASSOCIATE CURRENT MEDICATIONS: Current Outpatient Medications Medication Sig [...] mouth once daily. Blood-Glucose Meter,Continuous (DEXCOM G7 ROPE COILING MACHINE OPERATOR) misc use to check sugars (Patient not taking: [...] INTRAVENOUS DIRECTED PRN documented in this encounter [facility] 05-14-2023 History of Present illness Narrative This note was created using [employer] Platform. Subjective Miriam Davenport is a 83 year 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 per REGULATORY ATTORNEY outside facility Apr 1997 MORBID OBESITY 08/18/2007 Obstructive sleep apnea Sleep study 2003 Occlusion and stenosis of carotid artery without mention of cerebral infarction 03/09/2006 mild stenosis shown on u/s at [facility] u/s repeated 02/02/07 with no change [...] mouth once daily. Blood-Glucose Meter,Continuous (DEXCOM G7 ROPE COILING MACHINE OPERATOR) [facility] to [facility] (Patient not taking: [...] Height as of 01/11/23: 162.6 cm (5' 4"). Weight as of this encounter: 96.6 kg [...] know if decide wants referral for [facility] evaluation 2. Vitamin D deficiency [...] ARTIS SCREENING 6. Encounter for immunization Z23 Optimitive COVID-19 VACCINE (2022- SEAS[place]) AGE 12+ YR [...] to stay as active as able. Consider "brain games" to help with cognition. May also try learning new things, like a language or instrument. As noted above, will pursue consult to [facility] for cognitive testing, etc. Guillaume Dominguez MD documented in this encounter [facility] 05-04-2023 History of Present illness Narrative Patient presents for B-12 injection. Denies any problems at this time. Patient instructed on any SE of medication, verbalized understanding and agreed to proceed with treatment. Tolerated injection well. Ning Mckeon LPN documented in this encounter [facility] 03-30-2023 Instructions Curtis Nassar MD - 03/30/2023 8:04 AM EDT [...] to me as planned in May 2023 Curtis Nassar MD documented in this encounter [facility] 03-30-2023 History of Present illness Narrative Virtual Visit utilizing both audio and video components FaceTime I have communicated my name and active licensure. The patient's identity and physical location were verified at the time of this visit. Either the patient or their legal field service representative has been informed of the risks [...] to me as planned in May 2023 Curtis Nassar MD Data Review daughter Hardy has iPhone=FaceTime ([phone]) History Diabetes type 2, dx 1990 last eye exam November, had cataract surgery, no DM eye disease December 2022, though has early macular degen no hx CA, stroke, claudication, intolerant of statins, niacin and [...] x 3. Context: 1) s/p COVID vaccine TCHO 2) liv Ruiz now helps with her 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 per REGULATORY ATTORNEY outside facility Apr 1997 MORBID OBESITY 08/18/2007 Obstructive sleep apnea Sleep study 2002 Occlusion and stenosis of carotid artery without mention of cerebral infarction 03/09/2006 mild stenosis shown on u/s at [facility] u/s repeated 02/02/07 with no change [...] rash. Tape [Other] documented in this encounter [facility] 03-18-2023 Miscellaneous Notes Okayed Patient last visit with PCP 02/02/23 Follow up appointment scheduled 05/14/23 Rayne Winter Ma documented in this encounter [facility] 03-04-2023 History of Present illness Narrative Patient presents for B-12 injection. Denies any problems at this time. Patient instructed on any SE of medication, verbalized understanding and agreed to proceed with treatment. Tolerated injection well. Ning Mckeon LPN documented in this encounter [facility] 02-19-2023 Miscellaneous Notes Patient reports she [...] pcp: 02-02-23. Next appt: 05-14-23. Next appt w/;[facility], Dr. Singh is 03-12-23 Last 2 Encounter Wt Readings: [...] Shea Chisholm RN documented in this encounter [facility] 02-04-2023 History of Present illness Narrative Patient presents for B-12 injection. Denies any problems at this time. Patient instructed on any SE of medication, verbalized understanding and agreed to proceed with treatment. Tolerated injection well. Rechecked BP today d/t very low reading at office visit 02/02/23. Patient states that she feels better. Ning Linda POOL PLAYER documented in this encounter [facility] 02-02-2023 History of Present illness Narrative [...] capsule by mouth once daily. 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 Osteopenia - 04/20/2008 Comment: 2012 t score -1.7 at [facility] Contact Dermatitis and Other Eczema, Due to Unspecified Cause - 12/07/2007 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 new administration order at this time. Ning Mckeon LPN documented in this encounter [facility] 01-28-2023 History of Present illness Narrative [...] POST EXAM PIV STATUS: Discontinued PROCEDURE TYPE: TX Stress: 16.0 mCi [id number] was administered IV for Rest Imaging at 08:10 by . 46.4 mCi [id number] was administered IV for Stress Imaging at 09:17 by . PATIENT DISCHARGED TO: Ambulatory patient, left [place] department area. A Diagnostic radioactive procedure has taken place, with no further precautions necessary other than routine body substance precautions. More information regarding radiation safety can be found using this link: [email or web address] SIGNATURE: HELENA Julien PATIENT NAME: Miriam Davenport DATE: January 28, 2023 TIME: 9:31 AM PAGER/CONTACT #: documented in this encounter [facility] 01-27-2023 Miscellaneous Notes Spoke with patient regarding reminder for stress test tomorrow and given instructions. documented in this encounter [facility] 01-13-2023 Miscellaneous Notes Form rec'd from [facility] asking directions for pt's anticoagulant. Pcp noted pt can hold anticoagulant 2 days prior to extraction then resume day after extraction. This was faxed back to the number on the form. documented in this encounter [facility] 01-11-2023 History of Present illness Narrative Images from the original note were not included. 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 CARDIAC: [place] palpable in the 5th intercostal space mid [...] patient event(s). Isolated SVEs were frequent (17.7%, 891108), SVE Couplets were occasional (4.2%, 76870), and SVE Triplets were occasional (1.8%, 94597). Isolated VEs were rare (<1.0%), VE Couplets [...] Continue BB DM II Controlled S/p PE, multiple [place] [facility] 2020 with recurrence after stopping AC per [...] me if there are any questions. Maykel Whitfield DO, FACC, FCCP, FACOI Maykel Whitfield DO, SILVINAC, FCCP, FACOI CC: Guillaume Dominguez [address] [place] [address] documented in this encounter [facility] 01-08-2023 Miscellaneous Notes Patient's daughter notified. Geno Franco RN Rx e-scripted to preferred pharmacy Please notify daughter Hardy at [phone] Message has been routed to provider and [...] her mother, then set it up Hardy [phone] Thank you Veda Cardoza The DME company said that the CGM order should go to [facility]. Order pended below Maia Llanos RN Patients daughter Hardy calling in stating that Dexcom needs to be sent to [facility]. Hardy is asking for a return call to discuss Dexcom Please call Hardy back at [phone] Thank you documented in this encounter [facility] 01-04-2023 History of Present illness Narrative Patient presents for B-12 injection. Denies any problems at this time. Patient instructed on any SE of medication, verbalized understanding and agreed to proceed with treatment. Tolerated injection well. Ning Mckeon LPN documented in this encounter [facility] 12-30-2022 Instructions Curtis Nassar MD - 12/30/2022 10:32 AM EDT [...] use daughter for the virtual visits via [employer] Curtis Nassar MD documented in this encounter [facility] 12-30-2022 History of Present illness Narrative [...] Von Nassar MD Data Review daughter has iPhone=Von ([phone]) Component Latest Ref Rng & Units 10/10/2020 [...] x 3. 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 Tape [Other] documented in this encounter [facility] 12-25-2022 Miscellaneous Notes Received voicemail 12-25-22 at 9:49 AM Hi this is Shelley Davenport calling [phone]. I have a procedure scheduled for December [...] me I'd really appreciate it. Thank you. Bylesa." Call back to patient to advise that she should hold Eliquis 48 hours prior to procedure. Reviewed pre procedure instructions. Patient is diabetic but does not take insulin. Advised that patient should check sugar and call surgery scheduling if sugar is above 200. If above 250, procedure would not be performed. Patient verbalizes understanding. Offered to send pre procedure instructions via Justin[employer] but she states she has had trouble logging in. documented in this encounter [facility] 12-04-2022 Miscellaneous Notes [facility] called and states needs a script [...] Earline Morales LPN documented in this encounter [facility] 11-06-2022 History of Present illness Narrative [...] to 11/06/2022 and treatment included: Therapeutic exercise, Self-mcfp management, and Gait training. Goals for Episode of Care: created on 08/18/22 through 09/29/22 updated 09/17/22 Goals updated on 09/29/2022 through 11/03/22 Goals updated on 11/06/2022. [place] in home exercise program. -- PARTIALLY MET [...] SUBJECTIVE: Patient Reason for Visit: Pt. states "Not good" when asked how her back if feeling. PT asked what has made her pain worse she replies "I don't know." When PT asks if the lumbar flexion [...] deviations identified in the objective section above. Self-Mcfp Management: 1: *discussed how lumbar flexion increases [...] Nhi Iverson PT documented in this encounter [facility] 11-03-2022 Miscellaneous Notes Patient scheduled with Oralia Garcia CNP in office on 11/06/2022 [place] patient was in to the office today. [...] pain is persistent? documented in this encounter [facility] 11-03-2022 History of Present illness Narrative Patient presents for B-12 injection. Denies any problems at this time. Patient instructed on any SE of medication, verbalized understanding and agreed to proceed with treatment. Tolerated injection well. 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 Osteopenia - 04/20/2008 Comment: 2012 t score -1.7 at [facility] Contact Dermatitis and Other Eczema, Due to Unspecified Cause - 12/07/2007 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 Anxiety State - 07/28/2007 Pernicious Anemia - 04/13/2007 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 - 03/29/2007 Eating Disorder, Unspecified - 03/29/2007 Occlusion and Stenosis of Carotid Artery Without Mention of Cerebral Infarction - 03/09/2006 Comment: mild stenosis shown on u/s at [facility] u/s repeated 02/02/07 with no change Calculus of Gallbladder Without Mention of Cholecystitis Or Obstruction - 04/09/2005 Comment: No evidence obstruction on HIDA scan 03/04 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 Please review and advise. Lety Lam documented in this encounter [facility] 10-12-2022 History of Present illness Narrative [...] walker without symptoms. Pain: Pain Pain Level: ("right now I feel fine.") Pain Location: Low Back/Lumbar Spine - Left, [...] facilitated with verbal, visual, and tactile cueing. Self-Mcfp Management: 1: *strongly encouraged pt. to bring [...] Nhi Iverson PT documented in this encounter [facility] 10-02-2022 Miscellaneous Notes Letter generated and sent via fax at this time to patient's PCP for approval to hold Eliquis 2 days PRIOR to procedure documented in this encounter [facility] 09-29-2022 History of Present illness Narrative Patient presents for B-12 injection. Denies any problems at this time. Patient instructed on any SE of medication, verbalized understanding and agreed to proceed with treatment. Tolerated injection well. Ning Mckeon LPN documented in this encounter [facility] 09-26-2022 Miscellaneous Notes Patient scheduled in December in [place] with Dr Whitfield. 1st attempt to reach patient. Left message for patient to call office to schedule sooner appointment in Cardiology per PCP. Patient can be seen in [place] by Dr Horowitz or [facility] [phone] Should be seen sooner since she has been symptomatic :Patient scheduled with Dr. Whitfield's first available consult on 01/11. Please advise if that is too far out. documented in this encounter [facility] 09-25-2022 Miscellaneous Notes Patient has been [...] pharmacy today [id number] Thank you Velvet Byrd documented in this encounter [facility] 09-23-2022 Miscellaneous Notes Patient has been [...] you. Chely Erickson LPN Pharmacy verified in [facility] Patient has been identified by name [...] (240 lb) Please advise. Natalya Atkinson Pss \\ documented in this encounter [facility] 09-23-2022 History of Present illness Narrative [...] 2022 12:04 PM documented in this encounter [facility] 09-17-2022 History of Present illness Narrative [...] created on 08/18/22 through 09/29/22 updated 09/17/22 [place] in home exercise program./ partially achieved Patient [...] Patient to be seen for Therapeutic exercise (27940), Neuromuscular re-education (04577), Manual therapy (12345), Self-mcfp management (20826), Patient/Family/Caregiver Education, Gait Training (85524) PLAN FOR NEXT VISIT: Continue to work [...] house throughout the day. 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 Pain: Pain Pain Level: 4 Pain Location: [...] Veda Vital PT documented in this encounter [facility] 09-14-2022 History of Present illness Narrative [facility] Date: September 14, 2022 - 10:26 AM Chief Complaint: left lower back __ SUBJECTIVE: Ms. Davenport presents to the [facility] [facility] for a follow up appointment regarding chronic [...] physical activity. The pain is mitigated by "not moving." She is not currently receiving medications through the [facility]. 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 1. [...] your PCP/referring physician. documented in this encounter [facility] 09-11-2022 Miscellaneous Notes Patient returned call [...] team to assist documented in this encounter [facility] 09-10-2022 History of Present illness Narrative [...] Pain: Post Treatment Pain Post Treatment Symptoms: " I feel better than when I first came in" OBJECTIVE MEASURES WITH LEVEL OF FUNCTION: TREATMENT: [...] PTA/Veda Vital PT documented in this encounter [facility] 09-03-2022 History of Present illness Narrative [...] Veda Vital PT documented in this encounter [facility] 09-01-2022 History of Present illness Narrative [...] Veda Vital PT documented in this encounter [facility] 09-01-2022 History of Present illness Narrative Patient presents for B-12 injection. Denies any problems at this time. Patient instructed on any SE of medication, verbalized understanding and agreed to proceed with treatment. Tolerated injection well. Ning Mckeon LPN documented in this encounter [facility] 08-26-2022 Miscellaneous Notes Spoke with patient on phone. Aware the office visit from 08/15/22 is closed and she can access via Justin[employer]TV. Patient requesting copy be printed and sent to her, address checked and correct. Patient inquiring as to whether Cardiology Consult could be scheduled sooner than December, her daughter worried about her waiting that long. Patient may agree to go to [place] if can schedule sooner. Patient aware staffing [...] after visit summary to the front desk team member and call her for clam picker. documented in this encounter [facility] 08-19-2022 History of Present illness Narrative [...] of Care: created on 08/18/22 through 09/29/22 [place] in home exercise program. Patient will decrease [...] Planned: 8 Planned Treatment Interventions: Therapeutic exercise (15019), Neuromuscular re-education (68093), Manual therapy (18515), Self-mcfp management (53450), Gait Training (07657), Patient/Family/Caregiver Education PLAN FOR NEXT VISIT: Will [...] Demonstration TREATMENT: PT Treatment Interventions: Therapeutic Exercise, Self-Mcfp Management Evaluation Therapeutic Exercise: 1: seated pink [...] and visual cuing. Patient education as noted. Self-Mcfp Management: 1: instruction in use of ice [...] Veda Vital PT documented in this encounter [facility] 08-15-2022 Instructions Guillaume Dominguez MD - [...] going to lab) documented in this encounter [facility] 08-15-2022 History of Present illness Narrative This note was created using [employer] Platform. Subjective Miriam Davenport is a 82 year [...] Sinus issues with allergies acting up. Noemy [place] at night helps. Does have occasion wheezing--new. 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 Weight as of this encounter: 108.9 kg [...] ECG did not show a fib but "SINUS RHYTHM WITH PREMATURE ATRIAL COMPLEXES" Assessment and Plan Encounter Diagnosis ICD-10-CM 1. [...] the date of the service which included [id number] patient care, completing clinical documentation, obtaining and/or reviewing separately obtained history, performing a medically appropriate examination, counseling and educating the patient/family/caregiver, ordering medications, tests, or procedures, communicating with other HCPs (not separately reported), and independently interpreting results (not separately reported). Guillaume Dominguez MD documented in this encounter [facility] 08-12-2022 Miscellaneous Notes Spoke to pt and scheduled There is already a PT order in from Dr. Montelongo, please call patient to schedule Arelis Monahan APRN.CNP Patient calls and state that she was given physical therapy referral to [facility] by pain management. Patient states that she went to [facility] and did not like physical therapy. Patient states that she would like to go to [place] for Physical Therapy. Patient asking if provider can write a referral to physical therapy so that she can go to [place]? Patient also reports that she has been [...] Tabitha Madrid RN documented in this encounter [facility] 08-12-2022 Miscellaneous Notes Opened in Error documented in this encounter [facility] 08-07-2022 Miscellaneous Notes Pharmacy request refi Last OV 06/10/22 Next 10/23/22 Requested Prescriptions Pending Prescriptions Disp Refills blood sugar diagnostic (ACCU-CHEK POLY PLUS TEST STRP) test strip 100 Each 11 Sig: Check sugars 3 times daily Please review and advise. Katy Fowler RN documented in this encounter [facility] 08-04-2022 Miscellaneous Notes PT location contacted at this time Fax number to send order: [phone] PT order sent via fax at this [...] therapy Requesting order to be sent to [facility] in [place] Instructed patient to wait until tomorrow to call for an appointment as this RN will obtain order and fax it to [facility] per patient's request PT order pended to [...] patient to discuss documented in this encounter [facility] 08-04-2022 History of Present illness Narrative Patient presents for B-12 injection. Denies any problems at this time. Patient instructed on any SE of medication, verbalized understanding and agreed to proceed with treatment. Tolerated injection well. Ning Mckeon LPN documented in this encounter [facility] 08-03-2022 Miscellaneous Notes Printed and mailed to patient's home address. Can we please print and resend this one too? Thanks! Pt called in and lost the letter/prescription for the handicap sticker that was given to her on 03-21-22. Requesting a new one be mailed to her. Marquita Mclaughlin LPN documented in this encounter [facility] 07-07-2022 History of Present illness Narrative Patient presents for B-12 injection. Denies any problems at this time. Patient instructed on any SE of medication, verbalized understanding and agreed to proceed with treatment. Tolerated injection well. Ning Mckeon LPN documented in this encounter [facility] 07-07-2022 History of Present illness Narrative This note was created using [employer]. 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 REGULATORY ATTORNEY outside facility Apr 1997 MORBID OBESITY 08/18/2007 Obstructive sleep apnea Sleep study 2003 Occlusion and stenosis of carotid artery without mention of cerebral infarction 03/09/2006 mild stenosis shown on u/s at [facility] u/s repeated 02/02/07 with no change [...] Guillaume Dominguez MD documented in this encounter [facility] 07-02-2022 Miscellaneous Notes Wednesday07/04/22 is not [...] Marquita Mclaughlin LPN documented in this encounter [facility] 06-23-2022 Miscellaneous Notes Patient contacted office [...] time Closing encounter documented in this encounter [facility] 06-18-2022 Miscellaneous Notes Called and spoke [...] possible side effects. Please advise. Contact Information [phone] Thank you Veda Cardoza documented in this encounter [facility] 06-18-2022 Miscellaneous Notes Called patient and [...] Tabitha Madrid RN documented in this encounter [facility] 06-11-2022 Instructions Maykel Patel Jr., MD - 06/11/2022 11:52 AM EST Counseled patient on increasing fluids, avoiding salt, avoiding caffeine, avoiding large portions of animal fat/meats at one time and increasing citrates in diet. documented in this encounter [facility] 06-11-2022 Procedure note CYSTOSCOPY PROCEDURE NOTE: Miriam Davenport is a 82 year old female who presents with left side ureteral stent for a cystoscopy, left side ureteral stent removal Pt ID verified with patient: Yes Fire risk assessment done Procedure verified with patient: Yes Procedure confirmed with physician and sales support assistant: Yes UNIVERSAL PROTOCOL / SAFETY CHECKLIST Procedure [...] Patel Jr, MD documented in this encounter [facility] 06-03-2022 Miscellaneous Notes Received voicemail 06-03-22 at 3:24 PM. Hi this is Shelley Davenport calling, [phone]. My birthday is [birth year]. I'm calling about my back. It's very very painful and I really need to have help with it. Thank you very much. Bye." Forwarded to Dr. Montelongo's clinical staff. JESSICA Nunes, RN June 03, 2022 4:27 PM documented in this encounter [facility] 05-29-2022 Miscellaneous Notes Pt added to schedule for stent removal. Will call when home from hospital to confirm. Natalya MCINTYRE [facility] or 05/29/22 Cysto stent removal in office 1-2 weeks documented in this encounter [facility] 05-28-2022 Miscellaneous Notes OK, wonderful. Patient aware. Closing. Show up to surgery Patient calling and she was wanted to see what Urine Culture result from 05-26-2022 showed. Aware of this result: Culture No growth (<1,000 CFU/ml) Resulting Agency: [facility] I advised that Surgery still on for tomorrow and she just was checking to make sure. If she needs to do anything else please advise. documented in this encounter [facility] 05-12-2022 History of Present illness Narrative This note was created using [employer]. Subjective Miriam Davenport is a 82 year old female. 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 documented in this encounter [facility] 05-06-2022 Miscellaneous Notes Seen in today. [...] For any breaks in the skin, ask: "When was the last tetanus booster?" 10/10/2016 9. OTHER SYMPTOMS: "Do you have any other symptoms?" NO Protocols used: Finger [id number] documented in this encounter [facility] 05-06-2022 Instructions Janae Sandoval APRN.CONSULTING SERVICES ASSOCIATE - 05/06/2022 4:12 PM EST ASSESSMENT/PLAN: 1. Crushing injury of right middle finger, initial encounter - ICD9: 927.3, ICD10: S67.192A (primary diagnosis) - XR DIGIT GENERAL 3V FRONTAL/LAT/OBL RIGHT Radiologist IMPRESSION: Acute, comminuted fracture of the third distal phalanx subungual tuft. Jewelry Model Maker: KOLE Transcribe Date/Time: May 06 2022 4:13P [...] Discussed expected course of illness Janae Sandoval APRN.CONSULTING SERVICES ASSOCIATE FRACTURES GENERAL INFORMATION: A fracture is a [...] wet, it can be dried with a hair salon manager. 4. Do not put pressure on any [...] under the cast. 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 Jewelry Model Maker: KOLE Transcribe Date/Time: May 06 2022 4:13P [...] Janae Sandoval APRN.HIMA documented in this encounter [facility] 05-04-2022 History of Present illness Narrative Patient presents for B-12 injection. Denies any problems at this time. Patient instructed on any SE of medication, verbalized understanding and agreed to proceed with treatment. Tolerated injection well. Ning Mckeon LPN documented in this encounter [facility] 04-29-2022 History of Present illness Narrative [facility] Date: April 29, 2022 - 8:24 AM Chief Complaint: left sided back pain __ SUBJECTIVE: Ms. Davenport presents to the [facility] for a follow up appointment regarding left [...] is currently receiving medications (tizanidine) through the [facility]. 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 documented in this encounter [facility] 04-28-2022 History of Present illness Narrative PULM FUNCTION SMARTBLOCK: Provider: Guillaume Dominguez MD Assisting Tech: KELSI Carias Spirometry: 1 LV - Box: 1 documented in this encounter [facility] 04-27-2022 History of Present illness Narrative This note was created using [employer]. Subjective Miriam Davenport is a 82 year old female. 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 Weight as of this encounter: 112 kg [...] Lymph 1.00 - 4.00 k/uL 2.06 1.82 Sanborn% % 8.2 7.7 Abs Sanborn <0.87 k/uL 0.81 0.81 Eosin% % 1.2 [...] (diabetes mellitus), type 2 with neurological complications ([facility]) E11.49 COMP METABOLIC PANEL HGB A1C 9. [...] (BMI) of 39.0 to 39.9 in adult ([facility]) E66.01 Z68.39 Weight has trended down though up after .Keep up efforts at healthier diet and try to increase activity--planning to go to [employer] for exercise 14. History of Jordin-en-Y gastric [...] Guillaume Dominguez MD documented in this encounter [facility] 04-10-2022 Miscellaneous Notes Called patient and scheduled. Patient left voicemail 04/09/2022 at 1257 Patient states she is S/P RFA 14 days and is still having significant pain This RN recommends patient to schedule follow up with Dr. Montelongo to discuss care Will forward to clerical team to assist with scheduling follow up with Dr. Montelongo documented in this encounter [facility] 04-08-2022 History of Present illness Narrative [...] 2022 12:24 PM documented in this encounter [facility] 04-06-2022 History of Present illness Narrative Patient presents for B-12 injection. Denies any problems at this time. Patient instructed on any SE of medication, verbalized understanding and agreed to proceed with treatment. Tolerated injection well. Ning Mckeon LPN documented in this encounter [facility] 03-27-2022 Miscellaneous Notes Handicap Placard mailed [...] Anne Jennings RN documented in this encounter [facility] 03-24-2022 Miscellaneous Notes Requester: Patient Patients [...] No need to notify patient. [id number] Isabel Brothers Pss documented in this encounter [facility] 03-19-2022 Miscellaneous Notes Called patient in regards to message below. Message was sent to patient via [email or web address] on 03/10/2022, but was not read. I [...] it use for documented in this encounter [facility] 03-11-2022 History of Present illness Narrative SUBJECTIVE: Miriam Davenport presents to [facility] Department for a follow up [...] Injection Followup OBJECTIVE: Pulse 92 Ht 5' 6" (1.68m) Wt 248 lb 4.8 oz (112.6kg) [...] which included preparing to see the patient, [id number] patient care, completing clinical documentation, performing a medically appropriate examination, and ordering medications, tests, or procedures. The above plan and management options were discussed at length with patient. Patient is in agreement with the above and verbalized understanding. Oralia Garcia APRN, CNP March 11, 2022 documented in this encounter [facility] 03-04-2022 Instructions Sue Villarreal MD - [...] pending culture results documented in this encounter [facility] 03-04-2022 History of Present illness Narrative [...] - Pulmonary embolus after steroid procedure done (4/19/21) on lower back for pain. 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 March 04, 2022 3:05 PM. Sue Villrareal MD Dermatology PGY-3 I agree with the Chief Complaint, ROS, and Past Histories independently gathered by the clinical sales support assistant and the remaining scribed note accurately describes my personal service to the patient. I spent a total of 25 minutes on the date of the service which included preparing to see the patient, tlyz-de-emrt patient care, completing clinical documentation, obtaining and/or [...] Radha Walters MD documented in this encounter [facility] 03-02-2022 History of Present illness Narrative Patient presents for B-12 injection. Denies any problems at this time. Patient instructed on any SE of medication, verbalized understanding and agreed to proceed with treatment. Tolerated injection well. Pt to also receive COVID booster. Ning Mckeon LPN documented in this encounter [facility] 02-27-2022 Miscellaneous Notes Patient left voicemail 02/26/2022 Patient states that she had sacroiliac block with Dr. Montelongo on 02/17/2022 Patient states by the the evening of 02/20/2022, her pain was back Will need to obtain percentage of improvement during the time it was working as the local anesthetic wore of by the evening of 02/20/2022 documented in this encounter [facility] 02-16-2022 Miscellaneous Notes Patient contacted at this time Patient states she is having chest pain for the last 10 minutes or so. Similar to when she found out she had a blood clot last time Patient instructed to proceed to the ER Patient agrees and will be going to [facility] Patient to contact office if she needs to cancel procedure for tomorrow 02/17/2022 Patient called to report that she stopped taking Eliquis in preparation for her procedure tomorrow, but is now experiencing subtle chest pain. Transferred patient to triage nurse line. Also copying Dr. Montelongo and clinical staff to this encounter. Please advise, Awilda Tate documented in this encounter [facility] 02-10-2022 Instructions Guillaume Dominguez MD - [...] some veggies in. documented in this encounter [facility] 02-10-2022 History of Present illness Narrative This note was created using [employer]. 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 REGULATORY ATTORNEY outside facility Apr 1997 MORBID OBESITY 08/18/2007 Obstructive sleep apnea Sleep study 2003 Occlusion and stenosis of carotid artery without mention of cerebral infarction 03/09/06 mild stenosis shown on u/s at [facility] u/s repeated 02/02/07 with no change [...] 112/68 Pulse 82 Ht 165.1 cm (5' 5") Wt 111.6 kg (246 lb) BMI 40.94 [...] Lymph 1.00 - 4.00 k/uL 2.06 1.82 Sanborn% % 8.2 7.7 Abs Sanborn <0.87 k/uL 0.81 0.81 Eosin% % 1.2 [...] Guillaume Dominguez MD documented in this encounter [facility] 02-10-2022 History of Present illness Narrative Patient here for B12 injection and requested flu vaccine as well. Patient tolerated both injections. documented in this encounter [facility] 02-05-2022 Miscellaneous Notes Patient contacted via [...] as possible. Patient can be reached at [phone]. Thank you. Miriam Byrd documented in this encounter [facility] 02-04-2022 Miscellaneous Notes Patient notified Typically [...] Tabitha Madrid RN documented in this encounter [facility] 02-04-2022 Miscellaneous Notes Pt called back [...] so please let me know. Thank you. Violete." Call back to patient. Advised that she [...] 2022 9:45 AM documented in this encounter [facility] 01-29-2022 Miscellaneous Notes Patient scheduled for nurse visit 02/06/22 to receive B-[address]. [address] new administration order at this time. Ning Mckeon LPN documented in this encounter [facility] 01-19-2022 Instructions Comfort Patterson APRN.PLANT CONTROL AIDE - 01/19/2022 3:15 PM EDT Take one iron pill daily, take with food. 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 per REGULATORY ATTORNEY outside facility Apr 1997 MORBID OBESITY 08/18/2007 Obstructive sleep apnea Sleep study 2003 Occlusion and stenosis of carotid artery without mention of cerebral infarction 03/09/06 mild stenosis shown on u/s at [facility] u/s repeated 02/02/07 with no change [...] in dosing 5mg BID indefinitely Comfort Patterson APRN.CNS Medical Decision Making: Problems: Moderate: 1+ chronic illnesses with change Data: Unique test(s) ordered: 1 Risk: Moderate: Drug management Medical Decision Making Level: 4 - Moderate documented in this encounter [facility] 01-05-2022 History of Present illness Narrative Patient presents for B-12 injection. Denies any problems at this time. Patient instructed on any SE of medication, verbalized understanding and agreed to proceed with treatment. Tolerated injection well. Ning Mckeon LPN documented in this encounter [facility] 12-17-2021 Instructions Sasha Hurley APRN.HIMA - 12/17/2021 2:27 PM EDT keflex for 7 days Tylenol/ibuprofen as needed for discomfort AZO otc Increase hydration -Follow up with PCP or return to clinic if symptoms not improving in 3 days or if you develop any new (or worsening) symptoms such as fever, chills or back pain go to ER. documented in this encounter [facility] 12-17-2021 History of Present illness Narrative Subjective The history is provided by the patient. No historical interpreter was used. 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 per REGULATORY ATTORNEY outside facility Apr 1997 MORBID OBESITY 08/18/2007 Obstructive sleep apnea Sleep study 2003 Occlusion and stenosis of carotid artery without mention of cerebral infarction 03/09/06 mild stenosis shown on u/s at [facility] u/s repeated 02/02/07 with no change Pure hypercholesterolemia Type II or unspecified type diabetes mellitus with renal manifestations, uncontrolled(250.42) Unspecified glaucoma(365.9) Unspecified pruritic disorder I have confirmed and edited as necessary, the [facility] Review of Systems Constitutional: Negative for chills [...] 4 - Moderate documented in this encounter [facility] 12-15-2021 Miscellaneous Notes Patient notified of [...] Marquita Mclaughlin LPN documented in this encounter [facility] 12-04-2021 Miscellaneous Notes Patient returning call from [facility], is requesting a call back at [phone]. Patient states she will not be home [...] Isabel Orlando RN documented in this encounter [facility] 11-03-2021 History of Present illness Narrative Patient presents for B-12 injection. Denies any problems at this time. Patient instructed on any SE of medication, verbalized understanding and agreed to proceed with treatment. Tolerated injection well. Ning Mckeon LPN documented in this encounter [facility] 11-03-2021 Nurse Note EVENT MONITOR DISPOSABLE PATCH INSTRUCTIONS Patient Name: Miriam Davenport [facility] Number: [id number] Skin prepped and cleansed with alcohol Patch secured to prepped area Monitor Activated Serial #: [id number] Patient Instructed: 1.) Prescribed order timeframe 2.) Bathing guidelines 3.) Usage of event button and diary documentation 4.) Return of monitor at the end of prescribed order 5.) Call with problems [phone] or [phone] ext. [phone] Patient expresses a good understanding of instructions Gifty Singh documented in this encounter [facility] 11-03-2021 History of Present illness Narrative [...] 124/86 Pulse 81 Ht 167.6 cm (5' 6") Wt 113.6 kg (250 lb 8 oz) [...] labs . Hct WNL. Recent fall : "episode of lightheadedness around 3am today and fell while going to sit on the toilet. Landed mcfp on the toilet and scraped her left arm on windowsill. Did not hit her head or LOC. Was able to get up on her own power. Had bleeding from the left forearm which took several hours for the bleeding to slow down due to her anticoagulation." FIELD TTE : - Exam indication: Shortness [...] y/o referred to the EP clinic at [facility] for frequent PACs. Patient presents with no complaints. There is a report of significant FIELD - however the patient attributes this to her weight and lack of conditioning. She is unaware of the SVE. Review of her EKGs available in [facility] suggests frequent SVE developed around 2019 [...] may have occurred. Gamaliel Alegre MD Pager: [phone] Office: [phone] I personally examined the patient and repeated [...] medical regimen Referring Physician: Guillaume Dominguez [address] [id number] Comfort Patterson [address] [phone] documented in this encounter [facility] 10-22-2021 Miscellaneous Notes Okayed MALGORZATA: 10/03/2021 [...] patient. Marline Milton documented in this encounter [facility] 10-22-2021 Miscellaneous Notes Okayed MALGORZATA: 10/03/2021 [...] patient. Liz Byrd documented in this encounter [facility] 10-08-2021 Miscellaneous Notes Echo scheduled for 10/13/21. Cardio appt 11/03/21. Kandy Brady Ma Patient returned call and went over notes from Dr Soto and Comfort Patterson MOTORCYCLE DELIVERY DRIVER with understanding. Patient wrote down instructions, she had already stopped the iron some time ago. Assisted with transfer to operation specialist to get Cardiology consult and ECHO set [...] labs still pending. documented in this encounter [facility] 10-07-2021 Miscellaneous Notes Called and spoke with patient. Scheduled with Dr Montelongo on 10/24/21. Patient left voicemail stating she is experiencing severe pain with her back and hip. Patient states it is hard for her to function. 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 per REGULATORY ATTORNEY outside facility Apr 1997 MORBID OBESITY 08/18/2007 Obstructive sleep apnea Sleep study 2003 Occlusion and stenosis of carotid artery without mention of cerebral infarction 03/09/06 mild stenosis shown on u/s at [facility] u/s repeated 02/02/07 with no change [...] Flow Date and Time PF Resp 10/03/21 1432 -- 20 General Appearance: Well appearing, alert, [...] Iban Soto MD documented in this encounter [facility] 09-22-2021 Miscellaneous Notes Addended by: JOSE GORDON on: 09/22/2021 11:10 AM Modules accepted: Orders Patient has been identified by name and date of : Yes Pending Prescriptions Disp Refills GABAPENTIN 300 MG CAPSULE 90 capsule 11 Sig: one in morning, two at bedtime LISSA: No RX INSTRUCTIONS: Patient aware RX will be sent to pharmacy. No need to notify patient. [facility] [phone] Jose Gordon documented in this encounter [facility] 09-22-2021 Miscellaneous Notes Patient has been [...] Tabitha Monet RN documented in this encounter [facility] 09-01-2021 History of Present illness Narrative Patient presents for B-12 injection. Denies any problems at this time. Patient instructed on any SE of medication, verbalized understanding and agreed to proceed with treatment. Tolerated injection well. Ning Mckeon LPN documented in this encounter [facility] 08-22-2021 Instructions Curtis Nassar MD - 08/22/2021 2:55 PM EDT Assessment / Plan Assessment: 1) Diabetes type 2, sugars going low before lunch after taking 8mg glimepiride in AM. I'll ask her to drop to 4, 2, 1mg then stop all based on if sugars <100. 2) Peripheral neuropathy, hasn't been bothering her as much, is on [id number], 1 in AM, 2 in PM. I [...] 2) return to me in 3 months. Curtis Nassar MD documented in this encounter [facility] 08-22-2021 Nurse Note Images from the original note were not included. documented in this encounter [facility] 08-22-2021 History of Present illness Narrative Assessment / Plan Assessment: 1) Diabetes type 2, sugars going low before lunch after taking 8mg glimepiride in AM. I'll ask her to drop to 4, 2, 1mg then stop all based on if sugars <100. 2) Peripheral neuropathy, hasn't been bothering her as much, is on [id number], 1 in AM, 2 in PM. I [...] 2) return to me in 3 months. 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 Tape [Other] documented in this encounter [facility] 01-05-2019 History of Past i llness Narrative Problem Noted Date Resolved Date Obesity, Class III, BMI >= 40 01/05/2019 History of gastric bypass 06/19/20142021 Other physical therapy 08/12/2010 Other postoperative infection 03/08/2009 Morbid obesity 08/18/2007 03/10/2019 Diabetes mellitus type 2, 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, without complications 01/20/2005 08/21/2021 Last Assessment & Plan: SSI AC scale 1 Carb controlled diet Hold home metformin documented as of this encounter (statuses as of 08/22/2021) [facility] History of Past illness Narrative* Problem [...] of this encounter (statuses as of 09/01/2021) [facility] History of Past illness Narrative* Problem [...] of this encounter (statuses as of 09/22/2021) [facility] History of Past illness Narrative* Problem [...] of this encounter (statuses as of 10/06/2021) [place] [address]-08-2019 History of Past illness Narrative* Problem Noted [...] of this encounter (statuses as of 10/07/2021) [facility] of [facility] Narrative* Problem [...] of this encounter (statuses as of 10/08/2021) [facility] of [facility] illness Narrative* Problem [...] of this encounter (statuses as of 10/09/2021) [facility] of [facility] illness Narrative* Problem [...] of this encounter (statuses as of 10/22/2021) [facility] of [facility] illness Narrative* Problem [...] of this encounter (statuses as of 10/22/2021) [facility] of Past illness Narrative* Problem [...] of this encounter (statuses as of 10/30/2021) [facility] of Past illness Narrative* Problem Noted Date Resolved Date Obesity, Class III, BMI >= 40 01/05/2019 History of gastric bypass 06/19/2014 03/24/ 2022 Other physical therapy 08/12/2010 2 Other postoperative infection 03/08/2009 Morbid obesity 08/18/2007 03/10/2019 Diabetes mellitus type 2, 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, without complications 01/20/2005 08/21/2021 Last Assessment & Plan: SSI AC scale 1 Carb controlled diet Hold home metformin documented as of this encounter (statuses as of 11/03/2021) [facility] of Past illness Narrative* Problem [...] of this encounter (statuses as of 11/03/2021) [facility] Narrative* Problem [...] of this encounter (statuses as of 12/04/2021) [facility] Narrative* Problem [...] of this encounter (statuses as of 12/05/2021) [facility] Narrative* Problem [...] of this encounter (statuses as of 12/15/2021) [facility] Narrative* Problem [...] of this encounter (statuses as of 12/17/2021) [facility] Narrative* Problem [...] of this encounter (statuses as of 01/05/2022) [facility] Narrative* Problem [...] of this encounter (statuses as of 01/05/2022) [facility] Narrative* Problem [...] of this encounter (statuses as of 01/12/2022) [facility] Narrative* Problem [...] of this encounter (statuses as of 01/19/2022) [facility] Narrative* Problem [...] of this encounter (statuses as of 01/29/2022) [facility] Narrative* Problem [...] of this encounter (statuses as of 02/04/2022) [facility] Narrative* Problem [...] of this encounter (statuses as of 02/04/2022) [facility] Narrative* Problem [...] of this encounter (statuses as of 02/05/2022) [facility] Narrative* Problem [...] of this encounter (statuses as of 02/10/2022) [facility] Narrative* Problem [...] of this encounter (statuses as of 02/10/2022) [facility] Narrative* Problem [...] of this encounter (statuses as of 02/16/2022) [facility] History of Past illness Narrative* Problem [...] of this encounter (statuses as of 02/27/2022) [facility] Past illness Narrative* Problem [...] of this encounter (statuses as of 03/02/2022) [facility] Narrative* Problem [...] of this encounter (statuses as of 03/10/2022) [facility] Narrative* Problem [...] of this encounter (statuses as of 03/11/2022) [facility] Narrative* Problem [...] of this encounter (statuses as of 03/12/2022) [facility] Narrative* Problem [...] of this encounter (statuses as of 03/19/2022) [facility] Narrative* Problem [...] of this encounter (statuses as of 03/23/2022) [facility] Narrative* Problem [...] of this encounter (statuses as of 03/25/2022) [facility] Narrative* Problem [...] of this encounter (statuses as of 03/26/2022) [facility]* Problem [...] of this encounter (statuses as of 03/27/2022) [facility] Narrative* Problem [...] of this encounter (statuses as of 04/06/2022) [facility] Narrative* Problem [...] of this encounter (statuses as of 04/10/2022) [facility] Narrative* Problem [...] of this encounter (statuses as of 04/27/2022) [facility] Narrative* Problem [...] of this encounter (statuses as of 04/28/2022) [facility] Narrative* Problem [...] of this encounter (statuses as of 04/29/2022) [facility] Narrative* Problem [...] of this encounter (statuses as of 05/04/2022) [facility]* Problem [...] of this encounter (statuses as of 05/06/2022) [facility]arrative* Problem [...] of this encounter (statuses as of 05/06/2022) [facility]* Problem [...] of this encounter (statuses as of 05/07/2022) [facility]* Problem [...] of this encounter (statuses as of 05/22/2022) [facility]arrative* Problem [...] of this encounter (statuses as of 06/03/2022) [facility]arrative* Problem [...] of this encounter (statuses as of 06/03/2022) [facility]ative* Problem [...] of this encounter (statuses as of 06/05/2022) [facility]arrative* Problem [...] of this encounter (statuses as of 06/05/2022) [facility]ative* Problem [...] of this encounter (statuses as of 06/11/2022) [facility]ative* Problem [...] of this encounter (statuses as of 06/11/2022) [facility]* Problem [...] of this encounter (statuses as of 06/15/2022) [facility]* Problem [...] of this encounter (statuses as of 06/18/2022) [facility]arrative* Problem [...] of this encounter (statuses as of 06/18/2022) [facility]arrative* Problem [...] of this encounter (statuses as of 06/23/2022) [facility] Narrative* Problem [...] of this encounter (statuses as of 07/02/2022) [facility] Narrative* Problem [...] of this encounter (statuses as of 07/07/2022) [facility]* Problem [...] of this encounter (statuses as of 08/03/2022) [facility]arrative* Problem [...] of this encounter (statuses as of 08/04/2022) [facility]arrative* Problem [...] of this encounter (statuses as of 08/04/2022) [facility]arrative* Problem [...] of this encounter (statuses as of 08/04/2022) [facility]* Problem [...] of this encounter (statuses as of 08/08/2022) [facility]ative* Problem [...] of this encounter (statuses as of 08/12/2022) [facility]* Problem [...] of this encounter (statuses as of 08/19/2022) [facility]* Problem [...] of this encounter (statuses as of 08/26/2022) [facility]arrative* Problem [...] of this encounter (statuses as of 08/26/2022) [facility]* Problem [...] of this encounter (statuses as of 09/01/2022) [facility]* Problem [...] of this encounter (statuses as of 09/01/2022) [facility]arrative* Problem [...] of this encounter (statuses as of 09/03/2022) [facility] Narrative* Problem [...] of this encounter (statuses as of 09/11/2022) [facility]arrative* Problem [...] of this encounter (statuses as of 09/12/2022) [facility]arrative* Problem [...] of this encounter (statuses as of 09/14/2022) [facility]arrative* Problem [...] of this encounter (statuses as of 09/18/2022) [facility]arrative* Problem [...] of this encounter (statuses as of 09/18/2022) [facility]arrative* Problem [...] of this encounter (statuses as of 09/23/2022) [facility] Narrative* Problem [...] of this encounter (statuses as of 09/26/2022) [facility]arrative* Problem [...] of this encounter (statuses as of 09/26/2022) [facility]ative* Problem [...] of this encounter (statuses as of 09/29/2022) [facility]ative* Problem [...] of this encounter (statuses as of 10/02/2022) [facility]ative* Problem [...] of this encounter (statuses as of 10/12/2022) [facility]* Problem [...] of this encounter (statuses as of 10/12/2022) [facility]* Problem [...] of this encounter (statuses as of 10/28/2022) [facility]* Problem [...] of this encounter (statuses as of 11/06/2022) [facility]* Problem [...] of this encounter (statuses as of 11/03/2022) [facility]* Problem [...] of this encounter (statuses as of 11/04/2022) [facility]* Problem [...] of this encounter (statuses as of 12/05/2022) [facility] Narrative* Problem [...] of this encounter (statuses as of 12/25/2022) [facility]* Problem [...] of this encounter (statuses as of 12/30/2022) [facility]* Problem [...] of this encounter (statuses as of 01/04/2023) [facility]* Problem [...] of this encounter (statuses as of 01/09/2023) [facility]* Problem [...] of this encounter (statuses as of 01/11/2023) [facility]* Problem [...] of this encounter (statuses as of 01/14/2023) [facility]* Problem [...] of this encounter (statuses as of 01/27/2023) [facility]* Problem [...] of this encounter (statuses as of 01/29/2023) [facility]* Problem [...] of this encounter (statuses as of 01/29/2023) [facility]* Problem [...] of this encounter (statuses as of 02/02/2023) [facility]* Problem [...] of this encounter (statuses as of 02/03/2023) [facility]* Problem [...] of this encounter (statuses as of 02/04/2023) [facility]* Problem [...] of this encounter (statuses as of 02/20/2023) [facility]* Problem [...] of this encounter (statuses as of 03/06/2023) [facility]ative* Problem [...] of this encounter (statuses as of 03/18/2023) [facility]* Problem [...] of this encounter (statuses as of 03/30/2023) [facility]* Problem [...] of this encounter (statuses as of 04/03/2023) [facility]* Problem [...] of this encounter (statuses as of 05/04/2023) [facility]* Problem [...] of this encounter (statuses as of 05/14/2023) [facility]* Problem [...] of this encounter (statuses as of 06/27/2023) [facility]* Problem [...] of this encounter (statuses as of 07/07/2023) [facility]* Problem [...] of this encounter (statuses as of 07/07/2023) [facility]* Problem [...] of this encounter (statuses as of 07/09/2023) [facility]* Problem [...] of this encounter (statuses as of 07/22/2023) [facility]* Problem [...] of this encounter (statuses as of 07/22/2023) [facility]* Problem [...] of this encounter (statuses as of 08/02/2023) [facility]* Problem [...] of this encounter (statuses as of 08/11/2023) [facility]* Problem [...] of this encounter (statuses as of 08/12/2023) [facility]* Problem [...] of this encounter (statuses as of 08/13/2023) [facility]* Problem [...] of this encounter (statuses as of 08/13/2023) [facility]* Problem [...] of this encounter (statuses as of 08/16/2023) [facility]* Problem [...] of this encounter (statuses as of 08/16/2023) [facility]* Problem [...] of this encounter (statuses as of 09/06/2023) [facility]arrative* Problem [...] of this encounter (statuses as of 09/17/2023) [facility] Diagnosis 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), 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, not stated as uncontrolled Radiculopathy of thoracic region Thoracic or lumbosacral neuritis or radiculitis, unspecified [facility] Diagnosis Pernicious anemia- Primary [facility] Diagnosis Radiculopathy of thoracic region Thoracic or lumbosacral neuritis or radiculitis, unspecified [facility] Diagnosis Shortness of breath on exertion- Primary Shortness of breath Irregular heart beat Cardiac dysrhythmia, unspecified Fatigue, unspecified type Elevated ferritin Other abnormal blood chemistry [facility] Diagnosis Irregular heart beat- Primary Cardiac dysrhythmia, unspecified Shortness of breath on exertion Shortness of breath Fatigue, unspecified type Skin tear of left forearm without complication, initial encounter Lightheadedness Dizziness and giddiness [facility] Diagnosis 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 [facility] Diagnosis Chronic left SI joint pain- Primary Disorders of sacrum Sacroiliac joint pain Disorders of sacrum SI joint arthritis Sacroiliitis, not elsewhere classified Chronic left SI joint pain Disorders of sacrum Sacroiliac joint pain Disorders of sacrum SI joint arthritis Sacroiliitis, not elsewhere classified [facility] Diagnosis Dyspnea on exertion- Primary Other dyspnea and respiratory abnormality Chronic left SI joint pain Disorders of sacrum Sacroiliac joint pain Disorders of sacrum SI joint arthritis Sacroiliitis, not elsewhere classified [facility]* Diagnosis Pernicious anemia- Primary Chronic left SI joint pain Disorders of sacrum Sacroiliac joint pain Disorders of sacrum SI joint arthritis Sacroiliitis, not elsewhere classified [facility]* Diagnosis Acute UTI- Primary Urinary tract infection, site not specified Urinary frequency Glucosuria Glycosuria [facility]* Diagnosis Elevated ferritin- Primary Other abnormal blood chemistry [facility]* Diagnosis Pernicious anemia- Primary [facility] Diagnosis Chronic left SI joint pain- Primary Disorders of sacrum Sacroiliac joint pain Disorders of sacrum SI joint arthritis Sacroiliitis, not elsewhere classified Chronic SI joint pain Disorders of sacrum [facility]* Diagnosis Fatigue, unspecified type- Primary Iron deficiency Iron deficiency anemia, unspecified Chronic left SI joint pain Disorders of sacrum Sacroiliac joint pain Disorders of sacrum SI joint arthritis Sacroiliitis, not elsewhere classified [facility]* Diagnosis B12 deficiency- Primary Other B-complex deficiencies Chronic left SI joint pain Disorders of sacrum Sacroiliac joint pain Disorders of sacrum SI joint arthritis Sacroiliitis, not elsewhere classified documented in this encounter [facility]* Diagnosis Iron deficiency- Primary Iron deficiency anemia, unspecified [facility] Diagnosis Chronic left SI joint pain- Primary Disorders of sacrum Sacroiliac joint pain Disorders of sacrum SI joint arthritis Sacroiliitis, not elsewhere classified Chronic left SI joint pain Disorders of sacrum Sacroiliac joint pain Disorders of sacrum SI joint arthritis Sacroiliitis, not elsewhere classified documented in this encounter [facility] note* Diagnosis Need for influenza vaccination- Primary Need for prophylactic vaccination and inoculation against influenza Pernicious anemia Chronic left SI joint pain Disorders of sacrum Sacroiliac joint pain Disorders of sacrum SI joint arthritis Sacroiliitis, not elsewhere classified [facility] noteNo assessment information availableWMemorial [facility] Work Phone: Evaluation note* Diagnosis Pernicious anemia- Primary Need for vaccination Need for prophylactic vaccination and inoculation against unspecified single disease [facility] Diagnosis Chronic left SI joint pain- Primary Disorders of sacrum [facility] Diagnosis Chronic left SI joint pain- Primary Disorders of sacrum Sacroiliac joint pain Disorders of sacrum Chronic left SI joint pain Disorders of sacrum Sacroiliac joint pain Disorders of sacrum [facility] Diagnosis 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Pruritus Unspecified pruritic disorder Candidal vulvitis Candidiasis of vulva and vagina Lichen sclerosus 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 Disorders of sacrum Sacroiliac joint pain Disorders of sacrum [facility] Diagnosis Radiculopathy of thoracic region Thoracic or lumbosacral neuritis or radiculitis, unspecified Chronic left SI joint pain Disorders of sacrum Sacroiliac joint pain Disorders of sacrum [facility] Diagnosis Fatigue, unspecified type- Primary Primary hypertension Unspecified essential hypertension Hypoalbuminemia Other disorders of plasma protein metabolism Dietary iron deficiency without anemia Other nutritional deficiency Elevated ferritin Other abnormal blood chemistry Class 3 severe obesity due to excess calories with body mass index (BMI) of 40.0 to 44.9 in adult, unspecified whether serious comorbidity present (HCC) [facility] Diagnosis Iron deficiency Iron deficiency anemia, unspecified [facility] Diagnosis Pernicious anemia- Primary [facility] Diagnosis FIELD (dyspnea on exertion)- Primary [...] of kidney [facility] Diagnosis FIELD (dyspnea on exertion) Other dyspnea and respiratory abnormality Chronic cough Cough Renal calculus, left Calculus of kidney [facility] Diagnosis FIELD (dyspnea on exertion) Other dyspnea and respiratory abnormality Chronic cough Cough Renal calculus, left Calculus of kidney [facility] Diagnosis Lumbosacral facet joint syndrome- Primary Other symptoms referable to back Spondylolisthesis of lumbar region Acquired spondylolisthesis Spinal stenosis of lumbar region, unspecified whether neurogenic claudication present Renal calculus, left Calculus of kidney [facility] Diagnosis Pernicious anemia- Primary Renal calculus, left Calculus of kidney [facility] Diagnosis Crushing injury of right middle finger, initial encounter- Primary Open fracture of tuft of distal phalanx of finger Open fracture of distal phalanx or phalanges of hand Nausea Nausea alone Renal calculus, left Calculus of kidney [facility] Diagnosis Finger injury, right, initial encounter- Primary Renal calculus, left Calculus of kidney [facility] Diagnosis Spinal stenosis of lumbar region, [...] region Acquired spondylolisthesis [facility]* Diagnosis Kidney stone- Primary Calculus of kidney Spinal stenosis of lumbar region, unspecified whether neurogenic claudication present Lumbar spondylosis Lumbosacral spondylosis without myelopathy Radiculopathy, lumbar region Thoracic or lumbosacral neuritis or radiculitis, unspecified Spondylolisthesis of lumbar region Acquired spondylolisthesis [facility]* Diagnosis Crushing injury of right middle finger, sequela- Primary Renal calculus, left Calculus of kidney Spinal stenosis of lumbar region, unspecified whether neurogenic claudication present Lumbar spondylosis Lumbosacral spondylosis without myelopathy Radiculopathy, lumbar region Thoracic or lumbosacral neuritis or radiculitis, unspecified Spondylolisthesis of lumbar region Acquired spondylolisthesis [facility]* Diagnosis Dysuria- Primary Spinal stenosis of lumbar region, unspecified whether neurogenic claudication present Lumbar spondylosis Lumbosacral spondylosis without myelopathy Radiculopathy, lumbar region Thoracic or lumbosacral neuritis or radiculitis, unspecified Spondylolisthesis of lumbar region Acquired spondylolisthesis documented [facility]* Diagnosis Pernicious anemia- Primary Spinal stenosis of lumbar region, unspecified whether neurogenic claudication present Lumbar spondylosis Lumbosacral spondylosis without myelopathy Radiculopathy, lumbar region Thoracic or lumbosacral neuritis or radiculitis, unspecified Spondylolisthesis of lumbar region Acquired spondylolisthesis [facility] Diagnosis Spondylolisthesis of lumbar region Acquired spondylolisthesis Open compression fracture of L1 lumbar vertebra with routine healing, subsequent encounter Anxiety disorder, unspecified type [facility] Diagnosis Spinal stenosis of lumbar region, unspecified whether neurogenic claudication present- Primary Lumbar spondylosis Lumbosacral spondylosis without myelopathy Radiculopathy, lumbar region Thoracic or lumbosacral neuritis or radiculitis, unspecified Spondylolisthesis of lumbar region Acquired spondylolisthesis [facility] Diagnosis Pernicious anemia- Primary documented in this encounter [facility]* Diagnosis DM (diabetes mellitus), 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, not stated as uncontrolled [facility] Diagnosis Spinal stenosis of lumbar region, unspecified whether neurogenic claudication present Lumbar spondylosis Lumbosacral spondylosis without myelopathy Radiculopathy, lumbar region Thoracic or lumbosacral neuritis or radiculitis, unspecified Spondylolisthesis of lumbar region Acquired spondylolisthesis [facility] Diagnosis Irregular heart rhythm- Primary Cardiac [...] deficiencies Other fatigue [facility] Diagnosis Pernicious anemia- Primary [facility] Diagnosis Spinal stenosis of lumbar region, unspecified whether neurogenic claudication present- Primary Lumbar spondylosis Lumbosacral spondylosis without myelopathy Spondylolisthesis of lumbar region Acquired spondylolisthesis Radiculopathy, lumbar region Thoracic or lumbosacral neuritis or radiculitis, unspecified [facility] Diagnosis Spinal stenosis of lumbar region, unspecified whether neurogenic claudication present- Primary Lumbar spondylosis Lumbosacral spondylosis without myelopathy Spondylolisthesis of lumbar region Acquired spondylolisthesis Radiculopathy, lumbar region Thoracic or lumbosacral neuritis or radiculitis, unspecified [facility]* Diagnosis Spinal stenosis of lumbar region, unspecified whether neurogenic claudication present- Primary Lumbar spondylosis Lumbosacral spondylosis without myelopathy Spondylolisthesis of lumbar region Acquired spondylolisthesis Radiculopathy, lumbar region Thoracic or lumbosacral neuritis or radiculitis, unspecified documented in this encounter [facility] note* Diagnosis Spondylolisthesis of lumbar region- Primary Acquired spondylolisthesis Chronic SI joint pain Disorders of sacrum Spinal stenosis of lumbar region, unspecified whether neurogenic claudication present Pain in left hip Pain in joint, pelvic region and thigh Radiculopathy, lumbar region Thoracic or lumbosacral neuritis or radiculitis, unspecified documented in this encounter [facility] note* Diagnosis Spondylolisthesis of lumbar region- Primary Acquired spondylolisthesis Spinal stenosis of lumbar region, unspecified whether neurogenic claudication present Radiculopathy, lumbar region Thoracic or lumbosacral neuritis or radiculitis, unspecified Spondylolisthesis of lumbar region Acquired spondylolisthesis Spinal stenosis of lumbar region, unspecified whether neurogenic claudication present Radiculopathy, lumbar region Thoracic or lumbosacral neuritis or radiculitis, unspecified documented in this encounter [facility] note* Diagnosis Spinal stenosis of [...] or radiculitis, unspecified documented in this encounter [facility] note* Diagnosis Radiculopathy of thoracic region Thoracic or lumbosacral neuritis or radiculitis, unspecified Spondylolisthesis of lumbar region Acquired spondylolisthesis Spinal stenosis of lumbar region, unspecified whether neurogenic claudication present Radiculopathy, lumbar region Thoracic or lumbosacral neuritis or radiculitis, unspecified documented in this encounter [facility] note* Diagnosis Pernicious anemia- Primary Spondylolisthesis of lumbar region Acquired spondylolisthesis Spinal stenosis of lumbar region, unspecified whether neurogenic claudication present Radiculopathy, lumbar region Thoracic or lumbosacral neuritis or radiculitis, unspecified documented in this encounter [facility] note* Diagnosis Spinal stenosis of lumbar region, unspecified whether neurogenic claudication present- Primary Lumbar spondylosis Lumbosacral spondylosis without myelopathy Spondylolisthesis of lumbar region Acquired spondylolisthesis Radiculopathy, lumbar region Thoracic or lumbosacral neuritis or radiculitis, unspecified documented in this encounter [facility] note* Diagnosis Current moderate episode of major depressive disorder, unspecified whether recurrent (HCC)- Primary Anxiety disorder, unspecified type Radiculopathy, lumbar region Thoracic or lumbosacral neuritis or radiculitis, unspecified Chronic SI joint pain Disorders of sacrum Single subsegmental pulmonary embolism without acute cor pulmonale (HCC) Type 2 diabetes mellitus with peripheral neuropathy (HCC) [facility] Diagnosis Spinal stenosis of lumbar region, unspecified whether neurogenic claudication present- Primary Lumbar spondylosis Lumbosacral spondylosis without myelopathy Spondylolisthesis of lumbar region Acquired spondylolisthesis Radiculopathy, lumbar region Thoracic or lumbosacral neuritis or radiculitis, unspecified [facility] Diagnosis Pernicious anemia- Primary [facility]* Diagnosis 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 [facility]* Diagnosis DM (diabetes mellitus), 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 Type II or unspecified type diabetes mellitus with neurological manifestations, not stated as uncontrolled Type 2 diabetes mellitus with peripheral neuropathy (HCC) [facility]* Diagnosis Pernicious anemia- Primary [facility] Diagnosis 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 [facility]* Diagnosis FIELD (dyspnea on exertion)- Primary Other dyspnea and respiratory abnormality Irregular heart rhythm Cardiac dysrhythmia, unspecified Premature atrial complexes Supraventricular premature beats PAC (premature atrial contraction) Supraventricular premature beats Mixed hyperlipidemia Carotid artery stenosis without cerebral infarction, bilateral Type 2 diabetes mellitus with peripheral neuropathy (HCC) Atypical chest pain Other chest pain [facility] Diagnosis Irregular heart rhythm Cardiac dysrhythmia, unspecified FIELD (dyspnea on exertion) Other dyspnea and respiratory abnormality Premature atrial complexes Supraventricular premature beats PAC (premature atrial contraction) Supraventricular premature beats Mixed hyperlipidemia Carotid artery stenosis without cerebral infarction, bilateral Type 2 diabetes mellitus with peripheral neuropathy (HCC) Atypical chest pain Other chest pain [facility] Diagnosis Pernicious anemia- Primary [facility]* Diagnosis Hypotension due to drugs- Primary Other iatrogenic hypotension Chronic fatigue Other malaise and fatigue Memory deficit Memory loss Obesity, Class II, BMI 35-39.9 Obesity, unspecified Need for influenza vaccination Need for prophylactic vaccination and inoculation against influenza Encounter for therapeutic drug monitoring Type 2 diabetes mellitus with peripheral neuropathy (HCC) Mixed hyperlipidemia [facility] Diagnosis Pernicious anemia- Primary [facility]* Diagnosis 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[facility] Pernicious anemia- Primary [facility] Diagnosis 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 [facility]* Diagnosis Kidney stone Calculus of kidney [facility] Diagnosis Memory difficulties- Primary Memory loss Vitamin D deficiency Unspecified vitamin D deficiency Chronic cough Cough Type 2 diabetes mellitus with peripheral neuropathy (HCC) Breast cancer screening by mammogram Encounter for immunization Need for other specified prophylactic vaccination against single bacterial disease [facility] Diagnosis Dyspnea on exertion- Primary Other dyspnea and respiratory abnormality Premature atrial complexes Supraventricular premature beats Type 2 diabetes mellitus with peripheral neuropathy (HCC) Multiple subsegmental pulmonary emboli without acute cor pulmonale (HCC) ASIM (obstructive sleep apnea) Obstructive sleep apnea (adult) (pediatric) [facility] Diagnosis Abnormal mammogram- Primary Abnormal mammogram, unspecified [facility] Diagnosis 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, without long-term current use of insulin (HCC)- Primary Class 1 obesity due to excess calories with serious comorbidity and body mass index (BMI) of 34.0 to 34.9 in adult [facility]* Diagnosis Abnormal mammogram Abnormal mammogram, unspecified [facility]* Diagnosis Abnormal mammogram Abnormal mammogram, unspecified [facility]* Diagnosis Pernicious anemia- Primary [facility]* Diagnosis Mild cognitive impairment- Primary Mild cognitive impairment, so stated ASIM (obstructive sleep apnea) Obstructive sleep apnea (adult) (pediatric) [facility]* Diagnosis Seborrheic keratosis- Primary Other seborrheic keratosis 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 [facility] Diagnosis Current moderate episode of major [...] therapeutic drug monitoring [facility] Diagnosis Pernicious anemia- Primary [facility] Diagnosis 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, without long-term current use of insulin (HCC)- Primary [facility]* Diagnosis Pernicious anemia- Primary [facility]* Diagnosis 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, without long-term current use of insulin (HCC)- Primary Class 1 obesity due to excess calories with serious comorbidity and body mass index (BMI) of 34.0 to 34.9 in adult [facility]* Diagnosis Uncontrolled type 2 diabetes mellitus [...] cerebral infarction, bilateral [facility]* Diagnosis Cognitive impairment- Primary Unspecified persistent [...] use of medication documented in this encounter [facility] note* Diagnosis Type 2 diabetes mellitus with peripheral neuropathy (HCC) documented in this encounter [facility] note* Diagnosis Acute pain of right knee- Primary documented in this encounter [facility] note* Diagnosis Acute pain of right knee documented in this encounter [facility] note* Diagnosis UTI symptoms- Primary Other symptoms involving urinary system documented in this encounter [facility] note* Diagnosis Vulvovaginal pain- Primary Unspecified symptom [...] of 38.0 to 38.9 in adult (HCC) Renal calculus, left Calculus of kidney documented in this encounter [facility] note* Diagnosis Vulvovaginal pain- Primary Unspecified symptom [...] of 38.0 to 38.9 in adult (HCC) Crushing injury of right middle finger, initial encounter documented in this encounter [facility] note* Diagnosis Vulvovaginal pain- Primary Unspecified symptom [...] Shortness of breath documented in this encounter [facility] note* Diagnosis Vulvovaginal pain- Primary Unspecified symptom [...] (BMI) of 38.0 to 38.9 in adult ([facility]) Lumbar spondylosis- Primary Lumbosacral spondylosis without myelopathy Spondylolisthesis of lumbar region Acquired spondylolisthesis Radiculopathy, lumbar region Thoracic or lumbosacral neuritis or radiculitis, unspecified Lumbar spondylosis Lumbosacral spondylosis without myelopathy Spondylolisthesis of lumbar region Acquired spondylolisthesis Radiculopathy, lumbar region Thoracic or lumbosacral neuritis or radiculitis, unspecified documented in this encounter [facility] note* Diagnosis Vulvovaginal pain- Primary Unspecified symptom [...] subsegmental pulmonary emboli without acute cor pulmonale ([facility]) Atypical chest pain Other chest pain Hyperlipidemia, unspecified hyperlipidemia type DM (diabetes mellitus), type 2 with neurological complications ([facility]) Type II or unspecified type diabetes mellitus [...] (BMI) of 38.0 to 38.9 in adult ([facility]) Lumbar spondylosis- Primary Lumbosacral spondylosis without myelopathy Radiculopathy, lumbar region Thoracic or lumbosacral neuritis or radiculitis, unspecified Lumbar spondylosis Lumbosacral spondylosis without myelopathy Spondylolisthesis of lumbar region Acquired spondylolisthesis Radiculopathy, lumbar region Thoracic or lumbosacral neuritis or radiculitis, unspecified [facility] Diagnosis Vulvovaginal pain- Primary Unspecified symptom [...] current use of insulin (HCC) Hyperkalemia Hyperpotassemia [facility] Diagnosis Vulvovaginal pain- Primary Unspecified [...] (BMI) of 38.0 to 38.9 in adult ([facility]) Pruritic condition- Primary Unspecified pruritic disorder Anemia, unspecified type Type 2 diabetes mellitus with peripheral neuropathy ([facility]) Vitamin D deficiency Unspecified vitamin D deficiency Vitamin B12 deficiency Other B-complex deficiencies Pedal edema Edema Dementia, unspecified dementia severity, unspecified dementia type, unspecified whether behavioral, psychotic, or mood disturbance or anxiety ([facility]) Subdural hemorrhage ([facility])- Primary Subdural hemorrhage Subdural hemorrhage (HCC) Subdural hemorrhage SAH (subarachnoid hemorrhage) ([facility]) Subarachnoid hemorrhage Closed fracture of left femur, unspecified fracture morphology, unspecified portion of femur, initial encounter ([facility]) Acute blood loss anemia Acute posthemorrhagic anemia Midline shift of brain due to hematoma (HCC) At risk for seizures Other specified conditions influencing health status Pneumocephalus, traumatic Other conditions of brain Traumatic subdural hematoma with loss of consciousness, sequela (HCC) Traumatic subdural hematoma with loss of consciousness, subsequent encounter Traumatic subdural hematoma with loss of consciousness ([facility]) Subdural hemorrhage following injury, without mention of [...] Other specified counseling Longstanding persistent atrial fibrillation ([facility]) [facility] Diagnosis Vulvovaginal pain- Primary Unspecified symptom [...] subsegmental pulmonary emboli without acute cor pulmonale ([facility]) Atypical chest pain Other chest pain Hyperlipidemia, unspecified hyperlipidemia type DM (diabetes mellitus), type 2 with neurological complications ([facility]) Type II or unspecified type diabetes mellitus [...] (BMI) of 38.0 to 38.9 in adult ([facility]) Subdural hemorrhage (HCC)- Primary Subdural hemorrhage Subdural hemorrhage (HCC) Subdural hemorrhage SAH (subarachnoid hemorrhage) (HCC) Subarachnoid hemorrhage Closed fracture of left femur, unspecified fracture morphology, unspecified portion of femur, initial encounter ([facility]) Acute blood loss anemia Acute posthemorrhagic anemia [...] hyperglycemia, without long-term current use of insulin ([facility]) [facility] Diagnosis Vulvovaginal pain- Primary Unspecified [...] subsegmental pulmonary emboli without acute cor pulmonale ([facility]) Atypical chest pain Other chest pain Hyperlipidemia, unspecified hyperlipidemia type DM (diabetes mellitus), type 2 with neurological complications ([facility]) Type II or unspecified type diabetes mellitus [...] of insulin (HCC) [facility] Diagnosis Vulvovaginal pain- Primary Unspecified [...] Unspecified intracranial hemorrhage [facility] Diagnosis Nontraumatic intracranial hemorrhage, unspecified (HCC) [facility] Diagnosis Vulvovaginal pain- Primary Unspecified symptom [...] subsequent encounter- Primary [facility] Diagnosis Nontraumatic intracranial hemorrhage, unspecified (HCC)- Primary Nontraumatic intracranial hemorrhage, unspecified (HCC) [facility] Diagnosis Nontraumatic intracranial hemorrhage, unspecified (HCC)- Primary [facility] Additional Instructions The Dermabond/skin adhesive will fall off on its own in approximately 10 days. You can continue to shower and wash your hair as normal. Please return to the ER should you have any [facility] Phone: Hospital Discharge instructions Additional Instructions Please follow-up with urology for repeat evaluation and return to the ER if your pain is not controlled with outpatient therapy or you develop a fever over 100.4[facility] Phone: Reason for referral (narrative)* Outpatient Procedure (Routine) - Waiting for Online Response Specialty Diagnoses / Procedures Referred By Contac t Referred To Contact [facility] [place] Diagnoses Shortness of breath on exertion Irregular heart beat Fatigue, unspecified type Procedures ECHO ECHO TTHRC R-T 2D W/WOM-MODE COMPL SPEC&COLR D Comfort Patterson APRN.PLANT CONTROL AIDE [address] [place] [address] [facility] [place] [address] [place] [address] Referral ID Status Reason Start Date Expiration Date Visits Requested Visits Authorized [id number] Waiting for Online Response Auto-Generat ed Referral 10/28/2021 10/07/2022 1 1 * Consult, Test, Treat (Routine) - Pending Review Specialty Diagnoses / Procedures Referred By Liliana silva Referred To Contact Cardiology Diagnoses Shortness of breath on exertion Irregular heart beat Fatigue, unspecified type Procedures CONSULT TO CARDIOLOGY OFFICE/OUTPATIENT [facility] 60-74 MINUTES Comfort Patterson APRN.PLANT CONTROL AIDE [address] [place] [address] Referral ID Status Reason Start Date Expiration Date Visits Requested Visits Authorized [id number] Pending Review PCP Requested Referral 10/28/2021 10/07/2022 1 1 [facility] for referral (narrative)* Outpatient Procedure (Routine) - Pending Review Specialty Diagnoses / Procedures Referred By Contac t Referred To Contact [facility] Diagnoses Irregular heart beat Procedures ECG COMPLETE ECG ROUTINE ECG W/LEAST 12 LDS W/I&R Iban Soto MD [address] [place] [address] [facility] [address] [address] Referral ID Status Reason Start Date Expiration Date Visits Requested Visits Authorized [id number] Pending Review Auto-Generat ed Referral 10/03/2021 10/03/2022 1 1 [facility] for referral (narrative)* Outpatient Procedure (Routine) - Closed Specialty Diagnoses / Procedures Referred By Contac t Referred To Contact [facility] Diagnoses Dyspnea on exertion Procedures ECG COMPLETE ECG ROUTINE ECG W/LEAST 12 LDS W/I&R Gamaliel Alegre MD [address] [place], [place] [id number] [place] [id number] Referral ID Status Reason Start Date Expiration Date V isits Requested Visits Authorized [id number] Closed Auto-Generate d Referral 11/02/2021 11/02/2022 1 1 [facility] for referral (narrative)* Outpatient Procedure (Routine) - Pending Review Specialty Diagnoses / Procedures Referred By Contac t Referred To Contact [facility] Diagnoses FIELD (dyspnea on exertion) Chronic cough Procedures LUNG VOLUMES Guillaume Dominguez MD [address] [place] [address] [facility] [place] [address] [place], [place] [id number] Referral ID Status Reason Start Date Expiration Date Visits Requested Visits Authorized [id number] Pending Review Auto-Generat ed Referral 05/27/2023 1 1 * Outpatient Procedure (Routine) - Authorized Specialty Diagnoses / Procedures Referred By Contac t Referred To Contact [facility] Diagnoses FIELD (dyspnea on exertion) Chronic cough Procedures SPIROMETRY WITH DILATOR IF OBSTRUCTED BRNCDILAT RSPSE SPMTRY PRE&POST-BRNCDILAT ADMN Guillaume Dominguez MD [address] [place] [address] [facility] [place] [address] [place] [address] Referral ID Status Reason Start Date Expiration Date Visits Requested Visits Authorized [id number] Authorized Auto-Generat ed Referral 2 05/27/2023 1 1 * Outpatient Procedure (Routine) - Pending Review Specialty Diagnoses / Procedures Referred By Contac t Referred To [facility] Diagnoses Irregular heart rhythm Procedures ECG COMPLETE ECG ROUTINE ECG W/LEAST 12 LDS W/I&R Guillaume Dominguez MD [address] [place] [address] [facility] [place] [address] [place] [address] Referral ID Status Reason Start Date Expiration Date Visits Requested Visits Authorized [id number] Pending Review Auto-Generat ed Referral 2 04/27/2023 1 1 [facility] for referral (narrative)* Diagnostic Procedure Only (Routine) - Pending Review Specialty Diagnoses / Procedures Referred By Contac t Referred To Contact XR IMAGING Diagnoses Finger injury, right, initial encounter Procedures XR DIGIT GENERAL 3V FRONTAL/LAT/OBL RIGHT RADEX FINGR MINIMUM 2 VIEWS Eren Robbins MD [address] [place] [address] Xr Imaging Referral ID Status Reason Start Date Expiration Date Visits Requested Visits Authorized [id number] Pending Review Auto-Generat ed Referral 2 06/20/2023 1 1 [facility] for referral (narrative)* Diagnostic Procedure Only (Routine) - Pending Review Specialty Diagnoses / Procedures Referred By Contac t Referred To Contact XR IMAGING Diagnoses Kidney stone Procedures XR ABDOMEN 1V SUPINE RADIOLOGIC EXAM ABDOMEN 1 VIEW Maykel Patel Jr., MD [address] [place] [address] Xr Imaging Referral ID Status Reason Start Date Expiration Date Visits Requested Visits Authorized [id number] Pending Review Auto-Generat ed Referral 09/09/2022 07/11/2023 1 1 [facility] for referral (narrative)* Outpatient Procedure (Routine) [...] SPEC&COLR D Maykel Whitfield DO [address] [address] [facility] [place] [address] [place] [address] Referral ID Status Reason Start Date Expiration Date Visits Requested Visits Authorized [id number] Pending Review Auto-Generat ed Referral 01/11/2023 01/11/2024 [...] MULTIPLE STUDIES Maykel Whitfield DO [address] [address] [facility] [address] [place] [id number] Referral ID Status Reason Start Date Expiration Date Visits Requested Visits Authorized [id number] Pending Review Auto-Generat ed Referral 01/11/2023 02/10/2024 1 1 [facility] for referral (narrative)* Diagnostic Procedure Only [...] SPECT MULTIPLE STUDIES Maykel Whitfield DO [address] [address] [facility] [address] [place] [address] Referral ID Status Reason Start Date Expiration Date V isits Requested Visits Authorized [id number] Closed Auto-Generate d Referral 01/12/2023 04/12/2023 1 1 [facility] for referral (narrative)* Diagnostic Procedure Only (Routine) - Closed Specialty Diagnoses / Procedures Referred By Contac t Referred To Contact XR IMAGING Diagnoses Kidney stone Procedures XR ABDOMEN 1V SUPINE RADIOLOGIC EXAM ABDOMEN 1 VIEW Maykel Patel Jr., MD [address] [place] [address] [place] [address] Referral ID Status Reason Start Date Expiration Date V isits Requested Visits Authorized [id number] Closed Auto-Generate d Referral 09/23/2022 10/22/2023 1 1 T [facility] for referral (narrative)* Diagnostic Procedure Only (Routine) - Authorized Specialty Diagnoses / Procedures Referred By Contac t Referred To Contact BR IMAGING Diagnoses Abnormal mammogram Procedures US BREAST LTD RIGHT US BREAST UNI REAL TIME WITH IMAGE LIMITED Josefa Caputo APRN.CONSULTING SERVICES ASSOCIATE [address] [place] [address] [facility] [address] [place] [address] Referral ID Status Reason Start Date Expiration Date Visits Requested Visits Authorized [id number] Authorized Auto-Generat ed Referral 07/07/2023 08/05/2024 1 1 * Diagnostic Procedure Only (Routine) - Authorized Specialty Diagnoses / Procedures Referred By Contac t Referred To Contact BR IMAGING Diagnoses Abnormal mammogram Procedures ARTIS DIAGNOSTIC RIGHT DIAGNOSTIC MAMMOGRAPHY COMPUTER-AIDED DETCJ UNI Josefa Caputo APRN.CONSULTING SERVICES ASSOCIATE [address] [place] [address] [facility] [address] [place] [address] Referral ID Status Reason Start Date Expiration Date Visits Requested Visits Authorized [id number] Authorized Auto-Generat ed Referral 07/07/2023 08/05/2024 1 1 [facility] for referral (narrative)* Outpatient Procedure (Routine) - Authorized Specialty Diagnoses / Procedures Referred By Contac t Referred To [facility] Diagnoses Carotid stenosis, right Procedures US CAROTID ARTERIES POLO VAS LAB DUPLEX SCAN EXTRACRANIAL ART COMPL BI STUDY Josefa Capuot APRN.CONSULTING SERVICES ASSOCIATE [address] [place] [address] [facility] [place] [address] [place] [address] Referral ID Status Reason Start Date Expiration Date Visits Requested Visits Authorized [id number] Authorized Auto-Generat ed Referral 08/13/2023 08/12/2024 1 1 * Medication Prior Authorization - Authorized Specialty Diagnoses / Procedures Referred By Contac t Referred To Contact Diagnoses Anxiety disorder, unspecified type Radiculopathy, lumbar region Chronic SI joint pain Josefa Caputo APRN.CNP [address] [place] [address] Referral ID Status Reason Start Date Expiration Date V isits Requested Visits Authorized [id number] Authorized 05/31/2023 05/30/2024 1 1 [facility] for referral (narrative)* Diagnostic Procedure Only (Routine) - New Request Specialty Diagnoses / Procedures Referred By Contac t Referred To Contact XR IMAGING Diagnoses Acute pain of right knee Procedures XR KNEE LIMITED 2V AP/LAT RIGHT RADIOLOGIC EXAMINATION KNEE 1/2 VIEWS Josefa Caputo APRN.CONSULTING SERVICES ASSOCIATE [address] [place] [address] [place] [address] Referral ID Status Reason Start Date Expiration Date Visits Requested Visits Authorized [id number] New Request Auto-Generat ed Referral 12/24/2023 01/22/2025 1 1 [facility] for referral (narrative)* Diagnostic Procedure Only (Routine) - Closed Specialty Diagnoses / Procedures Referred By Contac t Referred To Contact XR IMAGING Diagnoses Renal calculus, left Procedures XR ABDOMEN 1V SUPINE RADIOLOGIC EXAM ABDOMEN 1 VIEW Maykel Patel Jr., MD [address] [place] [address] [place] [address] Referral ID Status Reason Start Date Expiration Date V isits Requested Visits Authorized [id number] Closed Auto-Generate d Referral 04/07/2022 05/07/2023 1 1 [facility] for referral (narrative)* Diagnostic Procedure Only (Urgent) - Closed Specialty Diagnoses / Procedures Referred By Contac t Referred To Contact XR IMAGING Diagnoses Crushing injury of right middle finger, initial encounter Procedures XR DIGIT GENERAL 3V FRONTAL/LAT/OBL RIGHT RADEX FINGR MINIMUM 2 VIEWS Janae Sandoval APRN.CONSULTING SERVICES ASSOCIATE [address] [place] [address] [place] [address] Referral ID Status Reason Start Date Expiration Date V isits Requested Visits Authorized [id number] Closed Auto-Generate d Referral 05/06/2022 06/05/2023 1 1 [facility] for referral (narrative)No reason for [facility]: Reason for visit Narrative* Diagnostic [...] SPECT MULTIPLE STUDIES Maykel Whitfield DO [address] [address] [facility] [address] [place] [address] Referral ID Status Reason Start Date Expiration Date V isits Requested Visits Authorized [id number] Closed Auto-Generate d Referral 01/12/2023 04/12/2023 1 1 [facility] for visit Narrative* Diagnostic Procedure Only (Routine) - Closed Specialty Diagnoses / Procedures Referred By Contac t Referred To Contact XR IMAGING Diagnoses Kidney stone Procedures XR ABDOMEN 1V SUPINE RADIOLOGIC EXAM ABDOMEN 1 VIEW Maykel Patel Jr., MD [address] [place] [address] [place] [address] Referral ID Status Reason Start Date Expiration Date V isits Requested Visits Authorized [id number] Closed Auto-Generate d Referral 09/23/2022 10/22/2023 1 1 [facility] for visit Narrative* Diagnostic Procedure Only (Routine) - Closed Specialty Diagnoses / Procedures Referred By Contac t Referred To Contact BR IM[facility] Diagnoses Abnormal mammogram Procedures ARTIS DIAGNOSTIC RIGHT DIAGNOSTIC MAMMOGRAPHY COMPUTER-AIDED DETCJ Josefa Perry APRN.CONSULTING SERVICES ASSOCIATE [address] [place] [address] [facility] [address] [place] [address] Referral ID Status Reason Start Date Expiration Date V isits Requested Visits Authorized [id number] Closed Auto-Generate d Referral 07/07/2023 08/05/2024 1 1 [facility] for visit Narrative* Diagnostic Procedure Only (Routine) - Authorized Specialty Diagnoses / Procedures Referred By Liliana t Referred To Contact BR IMAGING Diagnoses Abnormal mammogram Procedures US BREAST LTD RIGHT US BREAST UNI REAL TIME WITH IMAGE LIMITED Josefa Caputo APRN.CONSULTING SERVICES ASSOCIATE [address] [place] [address] [facility] [address] [place] [address] Referral ID Status Reason Start Date Expiration Date Visits Requested Visits Authorized [id number] Authorized Auto-Generat ed Referral 07/07/2023 08/05/2024 1 1 [facility] for visit Narrative* Diagnostic Procedure Only (Routine) - Closed Specialty Diagnoses / Procedures Referred By Liliana t Referred To Contact XR IMAGING Diagnoses Acute pain of right knee Procedures XR KNEE LIMITED 2V AP/LAT RIGHT RADIOLOGIC EXAMINATION KNEE 1/2 VIEWS Josefa Caputo APRN.CONSULTING SERVICES ASSOCIATE [address] [place] [address] [place] [address] Referral ID Status Reason Start Date Expiration Date V isits Requested Visits Authorized [id number] Closed Auto-Generate d Referral 12/24/2023 01/22/2025 1 1 [facility] for visit Narrative* Diagnostic Procedure Only (Routine) - Closed Specialty Diagnoses / Procedures Referred By Evyac t Referred To Contact XR IMAGING Diagnoses Renal calculus, left Procedures XR ABDOMEN 1V SUPINE RADIOLOGIC EXAM ABDOMEN 1 VIEW Maykel Patel Jr., MD [address] [place] [address] [place] [address] Referral ID Status Reason Start Date Expiration Date V isits Requested Visits Authorized [id number] Closed Auto-Generate d Referral 04/07/2022 05/07/2023 1 1 [facility] for visit Narrative* Diagnostic Procedure Only (Urgent) - Closed Specialty Diagnoses / Procedures Referred By Liliana t Referred To Contact XR IMAGING Diagnoses Crushing injury of right middle finger, initial encounter Procedures XR DIGIT GENERAL 3V FRONTAL/LAT/OBL RIGHT RADEX FINGR MINIMUM 2 VIEWS Janae Sandoval APRN.CONSULTING SERVICES ASSOCIATE [address] [place] [address] [place] [address] Referral ID Status Reason Start Date Expiration Date V isits Requested Visits Authorized [id number] Closed Auto-Generate d Referral 05/06/2022 06/05/2023 1 1 [facility] for visit Narrative* Imaging (Routine) - Closed Specialty Diagnoses / Procedures Referred By Contac t Referred To Contact Radiology Diagnoses Nontraumatic intracranial hemorrhage, unspecified (HCC) Procedures CT head wo IV contrast Tika Jones MD [address] [place] [address] Phone: tel: fax: Referral ID Status Reason Start Date Expiration Date Visits Re quested Visits Authorized [id number] Closed 08/01/2024 09/30/2024 1 1 [facility] Summary Purpose Family History No Family History Records FoundNo Family History Records FoundNo Family History Records FoundNo Family History Records FoundNo Family History Records FoundNo Family History Records FoundNo Family History Records FoundNo Family History Records Found Advance Directives No Advanced Directives Records FoundDocuments on File Type Date Recorded Patient Brush Machine Setter Expl anation Advance Directive(s) 08/16/2020 1:32 PM Advance Directive(s) 08/06/2020 9:17 AM Advance Directive(s) 05/05/2019 11:23 AM Advance Directive(s) 05/05/2019 11:27 AM Advance Directive(s) 03/17/2019 2:21 PM Advance Directive(s) 12/15/2018 11:36 AM Advance Directive(s) 11/23/2018 2:18 PM Advance Directive(s) 10/04/2018 7:45 AM Advance Directive(s) 11/09/2017 7:52 AM Documents on File Type Date Recorded Patient Brush Machine Setter Expl anation Advance Directive(s) 08/16/2020 1:32 PM Advance Directive(s) 08/06/2020 9:17 AM Advance Directive(s) 05/05/2019 11:23 AM Advance Directive(s) 05/05/2019 11:27 AM Advance Directive(s) 03/17/2019 2:21 PM Advance Directive(s) 12/15/2018 11:36 AM Advance Directive(s) 11/23/2018 2:18 PM Advance Directive(s) 10/04/2018 7:45 AM Advance Directive(s) 11/09/2017 7:52 AM Documents on File Type Date Recorded Patient Brush Machine Setter Expl anation Advance Directive(s) 11/21/2021 12:55 PM [...] No February 16, 2022 6:26pm Power of Ui Software Developer No January 6:26pm Advance Directive Response Recorded Date/ Time Advance Directives Yes June 20, 2017 8:56pm Living Will No February 21, 2022 1:16am Power of Ui Software Developer No January 1:16am Advance Directive Response Recorded Date/ Time Advance Directives Yes June 20, 2017 8:56pm Living Will No February 28 5:40am Power of Ui Software Developer No February 28 5:40am Documents on File Type Date Recorded Patient Brush Machine Setter Expl anation Advance Directive(s) 08/28/2022 2:42 PM Documents on File Type Date Recorded Patient Brush Machine Setter Expl anation Advance Directive(s) 08/28/2022 2:42 PM Advance Directive Response Recorded Date/ Time Advance Directives Yes June 20, 2017 8:56pm Living Will Yes February 26, 2023 5:38pm Power of Ui Software Developer Yes January 5:38pm Name of Medical Power of Ui Software Developer Reynaldo Bellekarli February 26, 2023 5:38pm Advance Directive Response Recorded Date/ Time Name of Medical Power of Ui Software Developer Reynaldo Davenport February 26, 2023 4:38pm Name of Medical Power of Ui Software Developer hardy lencho--[phone] June 12, 2023 7:20pm Advance Directives Yes June 20, 2017 7:56pm Living Will Yes June 12 7:20pm Power of Ui Software Developer Yes June 12, 2023 7:20pm Documents on File Type Date Recorded Patient Brush Machine Setter Expl anation Advance Directive(s) 08/28/2022 2:42 PM Hardy Black Documents on File Type Date Recorded Patient Brush Machine Setter Expl anation Advance Directive(s) 08/28/2022 2:42 PM Hardy Black Date Activated Date Inactivated Comments 05/06/2024 5:25 AM Question Answer Comments Full Code Order Discussed With: Patient Date Activated Date Inactivated Comments 05/08/2024 11:35 AM Question Answer Comments DNR Order Discussed With: Surrogate Decision Cesario ramirez Surrogate Decision Maker Name: hardy cardoso Surrogate Decision Maker Relationship: Health Ca re Power of Ui Software Developer Agent Date Activated Date Inactivated Comments 05/08/2024 11:15 AM 05/08/2024 11:35 AM Question Answer Comments DNR Order Discussed With: Surrogate Decision Cesario ramirez Surrogate Decision Maker Name: Hardy Black Surrogate Decision Maker Phone: [phone] Date Activated Date Inactivated Comments 05/06/2024 5:25 AM 05/08/2024 11:15 AM Question Answer Comments Full Code Order Discussed With: Patient Date Activated Date Inactivated Comments 05/08/2024 11:35 AM 05/20/2024 3:09 AM Date Activated Date Inactivated Comments 05/08/2024 11:35 AM 05/20/2024 3:09 AM Question Answer Comments DNR Order Discussed With: Surrogate Decision Cesario ramirez Surrogate Decision Maker Name: hardy cardoso Surrogate Decision Maker Relationship: Health Ca re Power of Ui Software Developer Agent Date Activated Date Inactivated Comments 05/08/2024 11:15 AM 05/08/2024 11:35 AM Question Answer Comments DNR Order Discussed With: Surrogate Decision Cesario ramirez Surrogate Decision Maker Name: Hardy Black Surrogate Decision Maker Phone: [phone] Date Activated Date Inactivated Comments 05/06/2024 5:25 AM 05/08/2024 11:15 AM Question Answer Comments Full Code Order Discussed With: Patient Advance Directive Response Recorded Date/ Time Living Will Yes May 05 11:59pm Do you have a Healthcare Power of Ui Software Developer? Yes May 05, 2024 11:59pm Name of Medical Power of Ui Software Developer HARDY May 05, 2024 11:59pm Advance Directives Yes June 20, 2017 8:56pm Advance Directive Response Recorded Date/ Time Advance Directives Yes June 20, 2017 8:56pm Procedure Findings Note HNO ID: [id number] Author: Candie Prado Service: Urogynecology Author Type: Physician Type: Operative Report Filed: 06/12/2019 9:29 AM Note Text: OPERATIVE / PROCEDURE NOTE LOG ID: [id number] Surgery/Procedure Date: 06/12/2019 Incision/Procedure Start Time: 7:46 AM Incision Close/Procedure End Time: 8:06 AM Surgeon(s)/Proceduralist(s) and Fur Finisher(s): Surgeon(s) and Role: * Esther Prado - Primary * Chaparrita Waite MD (Fel) - Fellow No Additional Staff Procedure(s): Exam under anesthesia, Vulvar biopsies Anesthesia: MAC Findings: 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 Extensive erythema with beefy red and inflammed appearing labia majora and perianal skin in a nojdvq-yb-xndja pattern. Skin is shiny and taut. Mildly thickened, white, stellate lesions noted at 9:00 and 3:00 on the labia majora (each approximately 8 mm in size) and 7:00 at the region of the labia minora about 1.5 cm distal to the introitus (approx 10 mm in size), and las (more content not included)... Note HNO ID: [id number] Author: Shelley Waite MD (Fel) Service: Urogynecology Author Type: Fellow Type: Brief Op Note Filed: 06/12/2019 8:26 AM Note Text: BRIEF OPERATIVE / PROCEDURE NOTE LOG ID: [id number] Surgery/Procedure Date: 06/12/2019 Incision/Procedure Start Time: 7:46 AM Incision Close/Procedure End Time: 8:06 AM Surgeon(s)/Proceduralist(s) and Fur Finisher(s): Surgeon(s) and Role: * Esther Prado - Primary * Chaparrita Waite MD (Fel) - Fellow No Additional Staff Procedure(s): Exam under anesthesia, Vulvar biopsies Anesthesia: MAC Findings: 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 Extensive erythema with beefy red and inflammed appearing labia majora and perianal skin in a hvizoe-jl-vqjzc pattern. Mildly thickened, white, stellate lesions noted [...] 3 most recent administrations Medication Order MAR Dose Rate Site cyanocobalamin 1,000 mcg injection 1,000 mcg, INTRAMUSCULAR, EVERY 1 MONTH, 12 doses, First dose on Kamille 02/04/23 at 0000, Last dose on Wed12/31/23 at 0000 Given 02/04/2023 1:42 PM EDT 1,000 mcg Deltoid, Left Active Administered Medications - up to 3 most recent administrations Medication Order [facility] Dose Rate Site cyanocobalamin 1,000 mcg injection 1,000 mcg, INTRAMUSCULAR, EVERY 1 MONTH, 12 doses, First dose on [place] 02/04/23 at 0000, Last dose on Wed12/31/23 at 0000 Given 03/04/2023 1:31 PM EDT 1,000 mcg Deltoid, Left Given 02/04/2023 1:42 PM EDT 1,000 mcg De ltoid, Left Active Administered Medications - up to 3 most recent administrations Medication Order [facility] Dose Rate Site cyanocobalamin 1,000 mcg injection [...] 5:00am LABWORK June 05, 2024 5: 00am [facility] LAB WORK June 09, 2024 5:45am [facility] LAB WORK June 20, 2024 5:00am LAB WORK July 10, 2024 4:00am LAB WORK July 25, 2024 4:00am [facility] LAB WORK August 08, 2024 5 :00am Chief Complaint Admit Date FALL May 05, 2024 1 0:59pm LAB WORK May 22, 2024 5:00am LAB WORK May 23, 2024 12:15am LAB WORK May 29, 2024 5:00am LABWORK June 05, 2024 5: 00am [facility] LAB WORK June 09, 2024 5:45am [facility] LAB WORK June 20, 2024 5:00am LAB WORK July 10, 2024 4:00am LAB WORK July 25, 2024 4:00am [facility] LAB WORK August 08, 2024 5 :00am [facility] LAB WORK August 11, 2024 5 :00am Chief Complaint Admit Date [facility] LAB WORK June 20, 2024 5:00am LAB WORK July 10, 2024 4:00am LAB WORK July 25, 2024 4:00am [facility] LAB WORK August 08, 2024 5 :00am [facility] LAB WORK August 11, 2024 5 :00am LABWORK September 21, 2024 5:0 0am Chief Complaint Admit Date LAB WORK July 10, 2024 4:00am LAB WORK July 25, 2024 4:00am [facility] LAB WORK August 08, 2024 5 :00am [facility] LAB WORK August 11, 2024 5 :00am [facility] LAB WORK September 11, 2024 9 :45pm LABWORK September 21, 2024 5:0 0am [facility] LAB WORK September 26, 2024 4 :00am Reason for Referral Specialty Diagnoses / Procedures Referred By Liliana t Referred To Contact Orthopedics Diagnoses Open fracture of tuft of distal phalanx of finger Procedures CONSULT PANEL TO ORTHOPAEDICS OFFICE/OUTPATIENT NEW HIGH MDM 60-74 MINUTES Janae Sandoval, GM.CONSULTING SERVICES ASSOCIATE [address] [place] [address] Referral ID Status Reason Start Date Expiration Date Visits Requested Visits Authorized [id number] Pending Review PCP Requested Referral 05/06/2022 05/06/2023 1 1 Specialty Diagnoses / Procedures Referred By Contac t Referred To Contact XR IMAGING Diagnoses Crushing injury of right middle finger, initial encounter Procedures XR DIGIT GENERAL 3V FRONTAL/LAT/OBL RIGHT RADEX FINGR MINIMUM 2 VIEWS Janae Sandoval, CORD MAKER.CONSULTING SERVICES ASSOCIATE [address] [place] [address] Xr Imaging Referral ID Status Reason Start Date Expiration Date V isits Requested Visits Authorized [id number] Closed Auto-Generate d Referral 05/06/2022 06/05/2023 1 1 Specialty Diagnoses / Procedures Referred By Contac t Referred To Contact [facility] Diagnoses Spinal stenosis of lumbar region, unspecified whether neurogenic claudication present Lumbar spondylosis Radiculopathy, lumbar region Spondylolisthesis of lumbar region Procedures CONSULT TO PHYSICAL THERAPY PHYSICAL THERAPY EVALUATION HIGH COMPLEX 45 MINS Oralia Garcia, CORD MAKER.CONSULTING SERVICES ASSOCIATE [address] [place] [address] [facility] [address] [address] Referral ID Status Reason Start Date Expiration Date Visits Requested Visits Authorized [id number] Pending Review Auto-Generat ed Referral 08/04/2022 08/04/2023 1 1 Specialty Diagnoses / Procedures Referred By Contac t Referred To Contact [facility] Diagnoses Spinal stenosis of lumbar region, unspecified whether neurogenic claudication present Lumbar spondylosis Radiculopathy, lumbar region Spondylolisthesis of lumbar region Procedures PT REHAB FOLLOW UP ORDER THERAPEUTIC EXERCISES RE, EA 15 MIN. Pt [facility] [address] [place] [address] [facility] [address] [address] Referral ID Status Reason Start Date Expiration Date Visits Requested Visits Authorized [id number] Pending Review PCP Requested Referral Auto-Generate d Referral 08/18/2022 11/16/2022 1 1 Specialty Diagnoses / Procedures Referred By Contac t Referred To Contact Cardiology Diagnoses Irregular heart rhythm FIELD (dyspnea on exertion) Premature atrial complexes Procedures CONSULT TO CARDIOLOGY OFFICE/OUTPATIENT NEW HIGH MDM 60-74 MINUTES Guillaume Dominguez MD [address] [place] [address] Maykel Whitfield, DO [address] [address] Referral ID Status Reason Start Date Expiration Date Visits Requested Visits Authorized [id number] Pending Review PCP Requested Referral 08/15/2022 08/15/2023 1 1 Specialty Diagnoses / Procedures Referred By Contac t Referred To Contact [facility] Diagnoses Bilateral carotid artery stenosis Procedures US CAROTID ARTERIES POLO VAS LAB DUPLEX SCAN EXTRACRANIAL ART COMPL BI STUDY Guillaume Dominguez MD [address] [place] [address] [facility] [address] [address] Referral ID Status Reason Start Date Expiration Date Visits Requested Visits Authorized [id number] Pending Review Auto-Generat ed Referral 08/15/2022 08/15/2023 1 1 Specialty Diagnoses / Procedures Referred By Contac t Referred To Contact [facility] Diagnoses Irregular heart rhythm FIELD (dyspnea on exertion) Procedures ECG COMPLETE ECG ROUTINE ECG W/LEAST 12 LDS W/I&R Guillaume Dominguez MD [address] [place] [address] [facility] [place] [facility] [address] [address] Referral ID Status Reason Start Date Expiration Date V isits Requested Visits Authorized [id number] Closed Auto-Generate d Referral 08/15/2022 08/15/2023 1 1 Specialty Diagnoses / Procedures Referred By Contac t Referred To Contact [facility] Diagnoses Spinal stenosis of lumbar region, unspecified whether neurogenic claudication present Lumbar spondylosis Spondylolisthesis of lumbar region Radiculopathy, lumbar region Procedures PT REHAB FOLLOW UP ORDER THERAPEUTIC EXERCISES RE, EA 15 MIN. [facility] [place] [address] [place] [id number] Referral ID Status Reason Start Date Expiration Date V isits Requested Visits Authorized [id number] Closed PCP Requested Referral Auto-Generated Referral 09/17/2022 12/16/2022 1 1 Specialty Diagnoses / Procedures Referred By Contac t Referred To Contact [facility] Diagnoses Breast cancer screening by mammogram Procedures ARTIS SCREENING SCREENING MAMMOGRAPHY BI 2-VIEW BREAST INC CAD Guillaume Dominguez MD [address] [place] [id number] [facility] [address] [place] [address] Referral ID Status Reason Start Date Expiration Date Visits Requested Visits Authorized [id number] Pending Review Auto-Generat ed Referral 3 08/12/2023 3 1 Specialty Diagnoses / Procedures Referred By Contac t Referred To Contact Diagnoses Mild cognitive impairment Procedures CONSULT TO [facility] OFFICE/OUTPATIENT [facility] 60 MINUTES Martha Germain DO [address] [place] [address] Referral ID Status Reason Start Date Expiration Date Visits Requested Visits Authorized [id number] Authorized PCP Requested Referral 08/11/2023 08/10/2024 1 1 Specialty Diagnoses / Procedures Referred By Contac t Referred To Contact Gerontology Diagnoses Mild cognitive impairment Procedures CONSULT TO GERIATRICS OFFICE/OUTPATIENT [facility] 60 MINUTES Martha Germain DO [address] [place] [address] Referral ID Status Reason Start Date Expiration Date Visits Requested Visits Authorized [id number] Authorized PCP Requested Referral 08/11/2023 08/10/2024 1 1 Specialty Diagnoses / Procedures Referred By Contac t Referred To Contact Radha Walters MD [address] [place] [address] Referral ID Status Reason Start Date Expiration Date V isits Requested Visits Authorized [id number] Authorized 05/31/2023 05/30/2024 1 1 Specialty Diagnoses / Procedures Referred By Contac t Referred To Contact Gerontology Diagnoses Cognitive impairment Procedures CONSULT TO GERIATRICS OFFICE/OUTPATIENT [facility] 60 MINUTES Guillaume Dominguez MD [facility] [place] [address] Damaris Knott MD [address] [place] [address] Referral ID Status Reason Start Date Expiration Date Visits Requested Visits Authorized [id number] Authorized PCP Requested Referral 12/10/2023 12/09/2024 1 1 Additional Source Comments INFORMATION SOURCE (unrecogn ized section and content) DATE CREATED AUTHOR 11/18/2017 [facility] DATE CREATED AUTHOR AUTHOR'S ORGANIZ ATION 10/17/2018 [facility] DATE CREATED AUTHOR AUTHOR'S ORGANIZ ATION 06/27/2019 [facility] DATE CREATED AUTHOR AUTHOR'S ORGANIZ ATION 03/31/2024 [facility] DATE CREATED AUTHOR AUTHOR'S ORGANIZ ATION 08/04/2024 [facility] DATE CREATED AUTHOR AUTHOR'S ORGANIZ ATION 08/05/[address] [facility] DATE CREATED AUTHOR AUTHOR'S ORGANIZ ATION 12/26/2024 [facility] DATE CREATED AUTHOR AUTHOR'S ORGANIZ ATION 01/05/2025 [facility] Source Comments (unrecognize d section and content) In the event this informatio n is protected by the Federal Confidentiality of Alcohol and Drug Abuse Patient Records regulations: The Federal rules restrict any use of the information to criminally investigate or prosecute any alcohol or drug abuse patient.[facility] the event this information is protected by the Federal Confidentiality of Alcohol and Drug Abuse Patient Records regulations: The Federal rules restrict any use of the information to criminally investigate or prosecute any alcohol or drug abuse patient.[facility] HospitalIn the event this information is protected by the Federal Confidentiality of Alcohol and Drug Abuse Patient Records regulations: The Federal rules restrict any use of the information to criminally investigate or prosecute any alcohol or drug abuse patient.[facility] HospitalIn the event this information is protected by the Federal Confidentiality of Alcohol and Drug Abuse Patient Records regulations: The Federal rules restrict any use of the information to criminally investigate or prosecute any alcohol or drug abuse patient.[facility] HospitalIn the event this information is protected by the Federal Confidentiality of Alcohol and Drug Abuse Patient Records regulations: The Federal rules restrict any use of the information to criminally investigate or prosecute any alcohol or drug abuse patient.[facility] HospitalIn the event this information is protected by the Federal Confidentiality of Alcohol and Drug Abuse Patient Records regulations: The Federal rules restrict any use of the information to criminally investigate or prosecute any alcohol or drug abuse patient.[facility] HospitalIn the event this information is protected by the Federal Confidentiality of Alcohol and Drug Abuse Patient Records regulations: The Federal rules restrict any use of the information to criminally investigate or prosecute any alcohol or drug abuse patient.[facility] HospitalIn the event this information is protected by the Federal Confidentiality of Alcohol and Drug Abuse Patient Records regulations: The Federal rules restrict any use of the information to criminally investigate or prosecute any alcohol or drug abuse patient.[facility] HospitalIn the event this information is protected by the Federal Confidentiality of Alcohol and Drug Abuse Patient Records regulations: The Federal rules restrict any use of the information to criminally investigate or prosecute any alcohol or drug abuse patient.[facility] HospitalIn the event this information is protected by the Federal Confidentiality of Alcohol and Drug Abuse Patient Records regulations: The Federal rules restrict any use of the information to criminally investigate or prosecute any alcohol or drug abuse patient.[facility] HospitalIn the event this information is protected by the Federal Confidentiality of Alcohol and Drug Abuse Patient Records regulations: The Federal rules restrict any use of the information to criminally investigate or prosecute any alcohol or drug abuse patient.[facility] HospitalIn the event this information is protected by the Federal Confidentiality of Alcohol and Drug Abuse Patient Records regulations: The Federal rules restrict any use of the information to criminally investigate or prosecute any alcohol or drug abuse patient.[facility] HospitalIn the event this information is protected by the Federal Confidentiality of Alcohol and Drug Abuse Patient Records regulations: The Federal rules restrict any use of the information to criminally investigate or prosecute any alcohol or drug abuse patient.[facility] HospitalIn the event this information is protected by the Federal Confidentiality of Alcohol and Drug Abuse Patient Records regulations: The Federal rules restrict any use of the information to criminally investigate or prosecute any alcohol or drug abuse patient.[facility] HospitalIn the event this information is protected by the Federal Confidentiality of Alcohol and Drug Abuse Patient Records regulations: The Federal rules restrict any use of the information to criminally investigate or prosecute any alcohol or drug abuse patient.[facility] HospitalIn the event this information is protected by the Federal Confidentiality of Alcohol and Drug Abuse Patient Records regulations: The Federal rules restrict any use of the information to criminally investigate or prosecute any alcohol or drug abuse patient.[facility] HospitalIn the event this information is protected by the Federal Confidentiality of Alcohol and Drug Abuse Patient Records regulations: The Federal rules restrict any use of the information to criminally investigate or prosecute any alcohol or drug abuse patient.[facility] HospitalIn the event this information is protected by the Federal Confidentiality of Alcohol and Drug Abuse Patient Records regulations: The Federal rules restrict any use of the information to criminally investigate or prosecute any alcohol or drug abuse patient.[facility] the event this information is protected by the Federal Confidentiality of Alcohol and Drug Abuse Patient Records regulations: The Federal rules restrict any use of the information to criminally investigate or prosecute any alcohol or drug abuse patient.[facility] HospitalIn the event this information is protected by the Federal Confidentiality of Alcohol and Drug Abuse Patient Records regulations: The Federal rules restrict any use of the information to criminally investigate or prosecute any alcohol or drug abuse patient.[facility] HospitalIn the event this information is protected [...] or prosecute any alcohol or drug abuse patient.[facility] HospitalIn the event this information is protected by the Federal Confidentiality of Alcohol and Drug Abuse Patient Records regulations: The Federal rules restrict any use of the information to criminally investigate or prosecute any alcohol or drug abuse patient.[facility] HospitalIn the event this information is protected by the Federal Confidentiality of Alcohol and Drug Abuse Patient Records regulations: The Federal rules restrict any use of the information to criminally investigate or prosecute any alcohol or drug abuse patient.[facility] HospitalIn the event this information is protected by the Federal Confidentiality of Alcohol and Drug Abuse Patient Records regulations: The Federal rules restrict any use of the information to criminally investigate or prosecute any alcohol or drug abuse patient.[facility] HospitalIn the event this information is protected by the Federal Confidentiality of Alcohol and Drug Abuse Patient Records regulations: The Federal rules restrict any use of the information to criminally investigate or prosecute any alcohol or drug abuse patient.[facility] HospitalIn the event this information is protected by the Federal Confidentiality of Alcohol and Drug Abuse Patient Records regulations: The Federal rules restrict any use of the information to criminally investigate or prosecute any alcohol or drug abuse patient.[facility] HospitalIn the event this information is protected by the Federal Confidentiality of Alcohol and Drug Abuse Patient Records regulations: The Federal rules restrict any use of the information to criminally investigate or prosecute any alcohol or drug abuse patient.[facility] HospitalIn the event this information is protected by the Federal Confidentiality of Alcohol and Drug Abuse Patient Records regulations: The Federal rules restrict any use of the information to criminally investigate or prosecute any alcohol or drug abuse patient.[facility] HospitalIn the event this information is protected by the Federal Confidentiality of Alcohol and Drug Abuse Patient Records regulations: The Federal rules restrict any use of the information to criminally investigate or prosecute any alcohol or drug abuse patient.[facility] HospitalIn the event this information is protected by the Federal Confidentiality of Alcohol and Drug Abuse Patient Records regulations: The Federal rules restrict any use of the information to criminally investigate or prosecute any alcohol or drug abuse patient.[facility] HospitalIn the event this information is protected by the Federal Confidentiality of Alcohol and Drug Abuse Patient Records regulations: The Federal rules restrict any use of the information to criminally investigate or prosecute any alcohol or drug abuse patient.[facility] HospitalIn the event this information is protected by the Federal Confidentiality of Alcohol and Drug Abuse Patient Records regulations: The Federal rules restrict any use of the information to criminally investigate or prosecute any alcohol or drug abuse patient.[facility] HospitalIn the event this information is protected by the Federal Confidentiality of Alcohol and Drug Abuse Patient Records regulations: The Federal rules restrict any use of the information to criminally investigate or prosecute any alcohol or drug abuse patient.[facility] HospitalIn the event this information is protected by the Federal Confidentiality of Alcohol and Drug Abuse Patient Records regulations: The Federal rules restrict any use of the information to criminally investigate or prosecute any alcohol or drug abuse patient.[facility] HospitalIn the event this information is protected by the Federal Confidentiality of Alcohol and Drug Abuse Patient Records regulations: The Federal rules restrict any use of the information to criminally investigate or prosecute any alcohol or drug abuse patient.[facility] HospitalIn the event this information is protected by the Federal Confidentiality of Alcohol and Drug Abuse Patient Records regulations: The Federal rules restrict any use of the information to criminally investigate or prosecute any alcohol or drug abuse patient.[facility] HospitalIn the event this information is protected by the Federal Confidentiality of Alcohol and Drug Abuse Patient Records regulations: The Federal rules restrict any use of the information to criminally investigate or prosecute any alcohol or drug abuse patient.[facility] HospitalIn the event this information is protected by the Federal Confidentiality of Alcohol and Drug Abuse Patient Records regulations: The Federal rules restrict any use of the information to criminally investigate or prosecute any alcohol or drug abuse patient.[facility] HospitalIn the event this information is protected by the Federal Confidentiality of Alcohol and Drug Abuse Patient Records regulations: The Federal rules restrict any use of the information to criminally investigate or prosecute any alcohol or drug abuse patient.[facility] HospitalIn the event this information is protected by the Federal Confidentiality of Alcohol and Drug Abuse Patient Records regulations: The Federal rules restrict any use of the information to criminally investigate or prosecute any alcohol or drug abuse patient.[facility] HospitalIn the event this information is protected by the Federal Confidentiality of Alcohol and Drug Abuse Patient Records regulations: The Federal rules restrict any use of the information to criminally investigate or prosecute any alcohol or drug abuse patient.[facility] HospitalIn the event this information is protected by the Federal Confidentiality of Alcohol and Drug Abuse Patient Records regulations: The Federal rules restrict any use of the information to criminally investigate or prosecute any alcohol or drug abuse patient.[facility] HospitalIn the event this information is protected by the Federal Confidentiality of Alcohol and Drug Abuse Patient Records regulations: The Federal rules restrict any use of the information to criminally investigate or prosecute any alcohol or drug abuse patient.[facility] HospitalIn the event this information is protected by the Federal Confidentiality of Alcohol and Drug Abuse Patient Records regulations: The Federal rules restrict any use of the information to criminally investigate or prosecute any alcohol or drug abuse patient.[facility] HospitalIn the event this information is protected by the Federal Confidentiality of Alcohol and Drug Abuse Patient Records regulations: The Federal rules restrict any use of the information to criminally investigate or prosecute any alcohol or drug abuse patient.[facility] HospitalIn the event this information is protected by the Federal Confidentiality of Alcohol and Drug Abuse Patient Records regulations: The Federal rules restrict any use of the information to criminally investigate or prosecute any alcohol or drug abuse patient.[facility] HospitalIn the event this information is protected by the Federal Confidentiality of Alcohol and Drug Abuse Patient Records regulations: The Federal rules restrict any use of the information to criminally investigate or prosecute any alcohol or drug abuse patient.[facility] HospitalIn the event this information is protected by the Federal Confidentiality of Alcohol and Drug Abuse Patient Records regulations: The Federal rules restrict any use of the information to criminally investigate or prosecute any alcohol or drug abuse patient.[facility] HospitalIn the event this information is protected by the Federal Confidentiality of Alcohol and Drug Abuse Patient Records regulations: The Federal rules restrict any use of the information to criminally investigate or prosecute any alcohol or drug abuse patient.[facility] HospitalIn the event this information is protected by the Federal Confidentiality of Alcohol and Drug Abuse Patient Records regulations: The Federal rules restrict any use of the information to criminally investigate or prosecute any alcohol or drug abuse patient.[facility] HospitalIn the event this information is protected by the Federal Confidentiality of Alcohol and Drug Abuse Patient Records regulations: The Federal rules restrict any use of the information to criminally investigate or prosecute any alcohol or drug abuse patient.[facility] HospitalIn the event this information is protected by the Federal Confidentiality of Alcohol and Drug Abuse Patient Records regulations: The Federal rules restrict any use of the information to criminally investigate or prosecute any alcohol or drug abuse patient.[facility] HospitalIn the event this information is protected by the Federal Confidentiality of Alcohol and Drug Abuse Patient Records regulations: The Federal rules restrict any use of the information to criminally investigate or prosecute any alcohol or drug abuse patient.[facility] HospitalIn the event this information is protected by the Federal Confidentiality of Alcohol and Drug Abuse Patient Records regulations: The Federal rules restrict any use of the information to criminally investigate or prosecute any alcohol or drug abuse patient.[facility] HospitalIn the event this information is protected by the Federal Confidentiality of Alcohol and Drug Abuse Patient Records regulations: The Federal rules restrict any use of the information to criminally investigate or prosecute any alcohol or drug abuse patient.[facility] HospitalIn the event this information is protected by the Federal Confidentiality of Alcohol and Drug Abuse Patient Records regulations: The Federal rules restrict any use of the information to criminally investigate or prosecute any alcohol or drug abuse patient.[facility] HospitalIn the event this information is protected by the Federal Confidentiality of Alcohol and Drug Abuse Patient Records regulations: The Federal rules restrict any use of the information to criminally investigate or prosecute any alcohol or drug abuse patient.[facility] HospitalIn the event this information is protected by the Federal Confidentiality of Alcohol and Drug Abuse Patient Records regulations: The Federal rules restrict any use of the information to criminally investigate or prosecute any alcohol or drug abuse patient.[facility] HospitalIn the event this information is protected by the Federal Confidentiality of Alcohol and Drug Abuse Patient Records regulations: The Federal rules restrict any use of the information to criminally investigate or prosecute any alcohol or drug abuse patient.[facility] HospitalIn the event this information is protected by the Federal Confidentiality of Alcohol and Drug Abuse Patient Records regulations: The Federal rules restrict any use of the information to criminally investigate or prosecute any alcohol or drug abuse patient.[facility] HospitalIn the event this information is protected by the Federal Confidentiality of Alcohol and Drug Abuse Patient Records regulations: The Federal rules restrict any use of the information to criminally investigate or prosecute any alcohol or drug abuse patient.[facility] HospitalIn the event this information is protected by the Federal Confidentiality of Alcohol and Drug Abuse Patient Records regulations: The Federal rules restrict any use of the information to criminally investigate or prosecute any alcohol or drug abuse patient.[facility] HospitalIn the event this information is protected by the Federal Confidentiality of Alcohol and Drug Abuse Patient Records regulations: The Federal rules restrict any use of the information to criminally investigate or prosecute any alcohol or drug abuse patient.[facility] HospitalIn the event this information is protected by the Federal Confidentiality of Alcohol and Drug Abuse Patient Records regulations: The Federal rules restrict any use of the information to criminally investigate or prosecute any alcohol or drug abuse patient.[facility] HospitalIn the event this information is protected by the Federal Confidentiality of Alcohol and Drug Abuse Patient Records regulations: The Federal rules restrict any use of the information to criminally investigate or prosecute any alcohol or drug abuse patient.[facility] HospitalIn the event this information is protected by the Federal Confidentiality of Alcohol and Drug Abuse Patient Records regulations: The Federal rules restrict any use of the information to criminally investigate or prosecute any alcohol or drug abuse patient.[facility] HospitalIn the event this information is protected by the Federal Confidentiality of Alcohol and Drug Abuse Patient Records regulations: The Federal rules restrict any use of the information to criminally investigate or prosecute any alcohol or drug abuse patient.[facility] the event this information is protected by the Federal Confidentiality of Alcohol and Drug Abuse Patient Records regulations: The Federal rules restrict any use of the information to criminally investigate or prosecute any alcohol or drug abuse patient.[facility] HospitalIn the event this information is protected by the Federal Confidentiality of Alcohol and Drug Abuse Patient Records regulations: The Federal rules restrict any use of the information to criminally investigate or prosecute any alcohol or drug abuse patient.[facility] HospitalIn the event this information is protected [...] or prosecute any alcohol or drug abuse patient.[facility] HospitalIn the event this information is protected by the Federal Confidentiality of Alcohol and Drug Abuse Patient Records regulations: The Federal rules restrict any use of the information to criminally investigate or prosecute any alcohol or drug abuse patient.[facility] HospitalIn the event this information is protected by the Federal Confidentiality of Alcohol and Drug Abuse Patient Records regulations: The Federal rules restrict any use of the information to criminally investigate or prosecute any alcohol or drug abuse patient.[facility] HospitalIn the event this information is protected by the Federal Confidentiality of Alcohol and Drug Abuse Patient Records regulations: The Federal rules restrict any use of the information to criminally investigate or prosecute any alcohol or drug abuse patient.[facility] HospitalIn the event this information is protected by the Federal Confidentiality of Alcohol and Drug Abuse Patient Records regulations: The Federal rules restrict any use of the information to criminally investigate or prosecute any alcohol or drug abuse patient.[facility] HospitalIn the event this information is protected by the Federal Confidentiality of Alcohol and Drug Abuse Patient Records regulations: The Federal rules restrict any use of the information to criminally investigate or prosecute any alcohol or drug abuse patient.[facility]In the event this information is protected by the Federal Confidentiality of Alcohol and Drug Abuse Patient Records regulations: The Federal rules restrict any use of the information to criminally investigate or prosecute any alcohol or drug abuse patient.[facility]In the event this information is protected by the Federal Confidentiality of Alcohol and Drug Abuse Patient Records regulations: The Federal rules restrict any use of the information to criminally investigate or prosecute any alcohol or drug abuse patient.[facility]In the event this information is protected by the Federal Confidentiality of Alcohol and Drug Abuse Patient Records regulations: The Federal rules restrict any use of the information to criminally investigate or prosecute any alcohol or drug abuse patient.[facility]In the event this information is protected by the Federal Confidentiality of Alcohol and Drug Abuse Patient Records regulations: The Federal rules restrict any use of the information to criminally investigate or prosecute any alcohol or drug abuse patient.[facility]In the event this information is protected by the Federal Confidentiality of Alcohol and Drug Abuse Patient Records regulations: The Federal rules restrict any use of the information to criminally investigate or prosecute any alcohol or drug abuse patient.[facility]In the event this information is protected by the Federal Confidentiality of Alcohol and Drug Abuse Patient Records regulations: The Federal rules restrict any use of the information to criminally investigate or prosecute any alcohol or drug abuse patient.[facility] HospitalIn the event this information is protected by the Federal Confidentiality of Alcohol and Drug Abuse Patient Records regulations: The Federal rules restrict any use of the information to criminally investigate or prosecute any alcohol or drug abuse patient.[facility] HospitalIn the event this information is protected by the Federal Confidentiality of Alcohol and Drug Abuse Patient Records regulations: The Federal rules restrict any use of the information to criminally investigate or prosecute any alcohol or drug abuse patient.[facility] HospitalIn the event this information is protected by the Federal Confidentiality of Alcohol and Drug Abuse Patient Records regulations: The Federal rules restrict any use of the information to criminally investigate or prosecute any alcohol or drug abuse patient.[facility] HospitalIn the event this information is protected by the Federal Confidentiality of Alcohol and Drug Abuse Patient Records regulations: The Federal rules restrict any use of the information to criminally investigate or prosecute any alcohol or drug abuse patient.[facility] HospitalIn the event this information is protected by the Federal Confidentiality of Alcohol and Drug Abuse Patient Records regulations: The Federal rules restrict any use of the information to criminally investigate or prosecute any alcohol or drug abuse patient.[facility] HospitalIn the event this information is protected by the Federal Confidentiality of Alcohol and Drug Abuse Patient Records regulations: The Federal rules restrict any use of the information to criminally investigate or prosecute any alcohol or drug abuse patient.[facility] HospitalIn the event this information is protected by the Federal Confidentiality of Alcohol and Drug Abuse Patient Records regulations: The Federal rules restrict any use of the information to criminally investigate or prosecute any alcohol or drug abuse patient.[facility] HospitalIn the event this information is protected by the Federal Confidentiality of Alcohol and Drug Abuse Patient Records regulations: The Federal rules restrict any use of the information to criminally investigate or prosecute any alcohol or drug abuse patient.[facility] HospitalIn the event this information is protected by the Federal Confidentiality of Alcohol and Drug Abuse Patient Records regulations: The Federal rules restrict any use of the information to criminally investigate or prosecute any alcohol or drug abuse patient.[facility] HospitalIn the event this information is protected by the Federal Confidentiality of Alcohol and Drug Abuse Patient Records regulations: The Federal rules restrict any use of the information to criminally investigate or prosecute any alcohol or drug abuse patient.[facility] HospitalIn the event this information is protected by the Federal Confidentiality of Alcohol and Drug Abuse Patient Records regulations: The Federal rules restrict any use of the information to criminally investigate or prosecute any alcohol or drug abuse patient.[facility] HospitalIn the event this information is protected by the Federal Confidentiality of Alcohol and Drug Abuse Patient Records regulations: The Federal rules restrict any use of the information to criminally investigate or prosecute any alcohol or drug abuse patient.[facility] HospitalIn the event this information is protected by the Federal Confidentiality of Alcohol and Drug Abuse Patient Records regulations: The Federal rules restrict any use of the information to criminally investigate or prosecute any alcohol or drug abuse patient.[facility] HospitalIn the event this information is protected by the Federal Confidentiality of Alcohol and Drug Abuse Patient Records regulations: The Federal rules restrict any use of the information to criminally investigate or prosecute any alcohol or drug abuse patient.[facility] HospitalIn the event this information is protected by the Federal Confidentiality of Alcohol and Drug Abuse Patient Records regulations: The Federal rules restrict any use of the information to criminally investigate or prosecute any alcohol or drug abuse patient.[facility] HospitalIn the event this information is protected by the Federal Confidentiality of Alcohol and Drug Abuse Patient Records regulations: The Federal rules restrict any use of the information to criminally investigate or prosecute any alcohol or drug abuse patient.[facility] HospitalIn the event this information is protected by the Federal Confidentiality of Alcohol and Drug Abuse Patient Records regulations: The Federal rules restrict any use of the information to criminally investigate or prosecute any alcohol or drug abuse patient.[facility] HospitalIn the event this information is protected by the Federal Confidentiality of Alcohol and Drug Abuse Patient Records regulations: The Federal rules restrict any use of the information to criminally investigate or prosecute any alcohol or drug abuse patient.[facility] HospitalIn the event this information is protected by the Federal Confidentiality of Alcohol and Drug Abuse Patient Records regulations: The Federal rules restrict any use of the information to criminally investigate or prosecute any alcohol or drug abuse patient.[facility] HospitalIn the event this information is protected by the Federal Confidentiality of Alcohol and Drug Abuse Patient Records regulations: The Federal rules restrict any use of the information to criminally investigate or prosecute any alcohol or drug abuse patient.[facility] HospitalIn the event this information is protected by the Federal Confidentiality of Alcohol and Drug Abuse Patient Records regulations: The Federal rules restrict any use of the information to criminally investigate or prosecute any alcohol or drug abuse patient.[facility] HospitalIn the event this information is protected by the Federal Confidentiality of Alcohol and Drug Abuse Patient Records regulations: The Federal rules restrict any use of the information to criminally investigate or prosecute any alcohol or drug abuse patient.[facility] HospitalIn the event this information is protected by the Federal Confidentiality of Alcohol and Drug Abuse Patient Records regulations: The Federal rules restrict any use of the information to criminally investigate or prosecute any alcohol or drug abuse patient.[facility] HospitalIn the event this information is protected by the Federal Confidentiality of Alcohol and Drug Abuse Patient Records regulations: The Federal rules restrict any use of the information to criminally investigate or prosecute any alcohol or drug abuse patient.[facility] HospitalIn the event this information is protected by the Federal Confidentiality of Alcohol and Drug Abuse Patient Records regulations: The Federal rules restrict any use of the information to criminally investigate or prosecute any alcohol or drug abuse patient.[facility] HospitalIn the event this information is protected by the Federal Confidentiality of Alcohol and Drug Abuse Patient Records regulations: The Federal rules restrict any use of the information to criminally investigate or prosecute any alcohol or drug abuse patient.[facility] HospitalIn the event this information is protected by the Federal Confidentiality of Alcohol and Drug Abuse Patient Records regulations: The Federal rules restrict any use of the information to criminally investigate or prosecute any alcohol or drug abuse patient.[facility] HospitalIn the event this information is protected by the Federal Confidentiality of Alcohol and Drug Abuse Patient Records regulations: The Federal rules restrict any use of the information to criminally investigate or prosecute any alcohol or drug abuse patient.[facility] HospitalIn the event this information is protected by the Federal Confidentiality of Alcohol and Drug Abuse Patient Records regulations: The Federal rules restrict any use of the information to criminally investigate or prosecute any alcohol or drug abuse patient.[facility] HospitalIn the event this information is protected by the Federal Confidentiality of Alcohol and Drug Abuse Patient Records regulations: The Federal rules restrict any use of the information to criminally investigate or prosecute any alcohol or drug abuse patient.[facility] HospitalIn the event this information is protected by the Federal Confidentiality of Alcohol and Drug Abuse Patient Records regulations: The Federal rules restrict any use of the information to criminally investigate or prosecute any alcohol or drug abuse patient.[facility] HospitalIn the event this information is protected by the Federal Confidentiality of Alcohol and Drug Abuse Patient Records regulations: The Federal rules restrict any use of the information to criminally investigate or prosecute any alcohol or drug abuse patient.[facility] HospitalIn the event this information is protected by the Federal Confidentiality of Alcohol and Drug Abuse Patient Records regulations: The Federal rules restrict any use of the information to criminally investigate or prosecute any alcohol or drug abuse patient.[facility] HospitalIn the event this information is protected by the Federal Confidentiality of Alcohol and Drug Abuse Patient Records regulations: The Federal rules restrict any use of the information to criminally investigate or prosecute any alcohol or drug abuse patient.[facility] HospitalIn the event this information is protected by the Federal Confidentiality of Alcohol and Drug Abuse Patient Records regulations: The Federal rules restrict any use of the information to criminally investigate or prosecute any alcohol or drug abuse patient.[facility] the event this information is protected by the Federal Confidentiality of Alcohol and Drug Abuse Patient Records regulations: The Federal rules restrict any use of the information to criminally investigate or prosecute any alcohol or drug abuse patient.[facility] HospitalIn the event this information is protected by the Federal Confidentiality of Alcohol and Drug Abuse Patient Records regulations: The Federal rules restrict any use of the information to criminally investigate or prosecute any alcohol or drug abuse patient.[facility] HospitalIn the event this information is protected [...] or prosecute any alcohol or drug abuse patient.[facility] HospitalIn the event this information is protected by the Federal Confidentiality of Alcohol and Drug Abuse Patient Records regulations: The Federal rules restrict any use of the information to criminally investigate or prosecute any alcohol or drug abuse patient.[facility] HospitalIn the event this information is protected by the Federal Confidentiality of Alcohol and Drug Abuse Patient Records regulations: The Federal rules restrict any use of the information to criminally investigate or prosecute any alcohol or drug abuse patient.[facility] HospitalIn the event this information is protected by the Federal Confidentiality of Alcohol and Drug Abuse Patient Records regulations: The Federal rules restrict any use of the information to criminally investigate or prosecute any alcohol or drug abuse patient.[facility] HospitalIn the event this information is protected by the Federal Confidentiality of Alcohol and Drug Abuse Patient Records regulations: The Federal rules restrict any use of the information to criminally investigate or prosecute any alcohol or drug abuse patient.[facility] HospitalIn the event this information is protected by the Federal Confidentiality of Alcohol and Drug Abuse Patient Records regulations: The Federal rules restrict any use of the information to criminally investigate or prosecute any alcohol or drug abuse patient.[facility] HospitalIn the event this information is protected by the Federal Confidentiality of Alcohol and Drug Abuse Patient Records regulations: The Federal rules restrict any use of the information to criminally investigate or prosecute any alcohol or drug abuse patient.[facility] HospitalIn the event this information is protected by the Federal Confidentiality of Alcohol and Drug Abuse Patient Records regulations: The Federal rules restrict any use of the information to criminally investigate or prosecute any alcohol or drug abuse patient.[facility] HospitalIn the event this information is protected by the Federal Confidentiality of Alcohol and Drug Abuse Patient Records regulations: The Federal rules restrict any use of the information to criminally investigate or prosecute any alcohol or drug abuse patient.[facility] HospitalIn the event this information is protected by the Federal Confidentiality of Alcohol and Drug Abuse Patient Records regulations: The Federal rules restrict any use of the information to criminally investigate or prosecute any alcohol or drug abuse patient.[facility] HospitalIn the event this information is protected by the Federal Confidentiality of Alcohol and Drug Abuse Patient Records regulations: The Federal rules restrict any use of the information to criminally investigate or prosecute any alcohol or drug abuse patient.[facility] HospitalIn the event this information is protected by the Federal Confidentiality of Alcohol and Drug Abuse Patient Records regulations: The Federal rules restrict any use of the information to criminally investigate or prosecute any alcohol or drug abuse patient.[facility] HospitalIn the event this information is protected by the Federal Confidentiality of Alcohol and Drug Abuse Patient Records regulations: The Federal rules restrict any use of the information to criminally investigate or prosecute any alcohol or drug abuse patient.[facility] HospitalIn the event this information is protected by the Federal Confidentiality of Alcohol and Drug Abuse Patient Records regulations: The Federal rules restrict any use of the information to criminally investigate or prosecute any alcohol or drug abuse patient.[facility] HospitalIn the event this information is protected by the Federal Confidentiality of Alcohol and Drug Abuse Patient Records regulations: The Federal rules restrict any use of the information to criminally investigate or prosecute any alcohol or drug abuse patient.[facility] HospitalIn the event this information is protected by the Federal Confidentiality of Alcohol and Drug Abuse Patient Records regulations: The Federal rules restrict any use of the information to criminally investigate or prosecute any alcohol or drug abuse patient.[facility] HospitalIn the event this information is protected by the Federal Confidentiality of Alcohol and Drug Abuse Patient Records regulations: The Federal rules restrict any use of the information to criminally investigate or prosecute any alcohol or drug abuse patient.[facility] HospitalIn the event this information is protected by the Federal Confidentiality of Alcohol and Drug Abuse Patient Records regulations: The Federal rules restrict any use of the information to criminally investigate or prosecute any alcohol or drug abuse patient.[facility] HospitalIn the event this information is protected by the Federal Confidentiality of Alcohol and Drug Abuse Patient Records regulations: The Federal rules restrict any use of the information to criminally investigate or prosecute any alcohol or drug abuse patient.[facility] HospitalIn the event this information is protected by the Federal Confidentiality of Alcohol and Drug Abuse Patient Records regulations: The Federal rules restrict any use of the information to criminally investigate or prosecute any alcohol or drug abuse patient.[facility] HospitalIn the event this information is protected by the Federal Confidentiality of Alcohol and Drug Abuse Patient Records regulations: The Federal rules restrict any use of the information to criminally investigate or prosecute any alcohol or drug abuse patient.[facility] HospitalIn the event this information is protected by the Federal Confidentiality of Alcohol and Drug Abuse Patient Records regulations: The Federal rules restrict any use of the information to criminally investigate or prosecute any alcohol or drug abuse patient.[facility] HospitalIn the event this information is protected by the Federal Confidentiality of Alcohol and Drug Abuse Patient Records regulations: The Federal rules restrict any use of the information to criminally investigate or prosecute any alcohol or drug abuse patient.[facility] HospitalIn the event this information is protected by the Federal Confidentiality of Alcohol and Drug Abuse Patient Records regulations: The Federal rules restrict any use of the information to criminally investigate or prosecute any alcohol or drug abuse patient.[facility] HospitalIn the event this information is protected by the Federal Confidentiality of Alcohol and Drug Abuse Patient Records regulations: The Federal rules restrict any use of the information to criminally investigate or prosecute any alcohol or drug abuse patient.[facility] HospitalIn the event this information is protected by the Federal Confidentiality of Alcohol and Drug Abuse Patient Records regulations: The Federal rules restrict any use of the information to criminally investigate or prosecute any alcohol or drug abuse patient.[facility] HospitalIn the event this information is protected by the Federal Confidentiality of Alcohol and Drug Abuse Patient Records regulations: The Federal rules restrict any use of the information to criminally investigate or prosecute any alcohol or drug abuse patient.[facility] HospitalIn the event this information is protected by the Federal Confidentiality of Alcohol and Drug Abuse Patient Records regulations: The Federal rules restrict any use of the information to criminally investigate or prosecute any alcohol or drug abuse patient.[facility] HospitalIn the event this information is protected by the Federal Confidentiality of Alcohol and Drug Abuse Patient Records regulations: The Federal rules restrict any use of the information to criminally investigate or prosecute any alcohol or drug abuse patient.[facility]In the event this information is protected by the Federal Confidentiality of Alcohol and Drug Abuse Patient Records regulations: The Federal rules restrict any use of the information to criminally investigate or prosecute any alcohol or drug abuse patient.[facility] HospitalIn the event this information is protected by the Federal Confidentiality of Alcohol and Drug Abuse Patient Records regulations: The Federal rules restrict any use of the information to criminally investigate or prosecute any alcohol or drug abuse patient.[facility]In the event this information is protected by the Federal Confidentiality of Alcohol and Drug Abuse Patient Records regulations: The Federal rules restrict any use of the information to criminally investigate or prosecute any alcohol or drug abuse patient.[facility]In the event this information is protected by the Federal Confidentiality of Alcohol and Drug Abuse Patient Records regulations: The Federal rules restrict any use of the information to criminally investigate or prosecute any alcohol or drug abuse patient.[facility]In the event this information is protected by the Federal Confidentiality of Alcohol and Drug Abuse Patient Records regulations: The Federal rules restrict any use of the information to criminally investigate or prosecute any alcohol or drug abuse patient.[facility]In the event this information is protected by the Federal Confidentiality of Alcohol and Drug Abuse Patient Records regulations: The Federal rules restrict any use of the information to criminally investigate or prosecute any alcohol or drug abuse patient.[facility] HospitalIn the event this information is protected by the Federal Confidentiality of Alcohol and Drug Abuse Patient Records regulations: The Federal rules restrict any use of the information to criminally investigate or prosecute any alcohol or drug abuse patient.[facility] HospitalIn the event this information is protected by the Federal Confidentiality of Alcohol and Drug Abuse Patient Records regulations: The Federal rules restrict any use of the information to criminally investigate or prosecute any alcohol or drug abuse patient.[facility]In the event this information is protected by the Federal Confidentiality of Alcohol and Drug Abuse Patient Records regulations: The Federal rules restrict any use of the information to criminally investigate or prosecute any alcohol or drug abuse patient.[facility] HospitalIn the event this information is protected by the Federal Confidentiality of Alcohol and Drug Abuse Patient Records regulations: The Federal rules restrict any use of the information to criminally investigate or prosecute any alcohol or drug abuse patient.[facility] HospitalIn the event this information is protected by the Federal Confidentiality of Alcohol and Drug Abuse Patient Records regulations: The Federal rules restrict any use of the information to criminally investigate or prosecute any alcohol or drug abuse patient.[facility] HospitalIn the event this information is protected by the Federal Confidentiality of Alcohol and Drug Abuse Patient Records regulations: The Federal rules restrict any use of the information to criminally investigate or prosecute any alcohol or drug abuse patient.[facility] HospitalIn the event this information is protected by the Federal Confidentiality of Alcohol and Drug Abuse Patient Records regulations: The Federal rules restrict any use of the information to criminally investigate or prosecute any alcohol or drug abuse patient.[facility] HospitalIn the event this information is protected by the Federal Confidentiality of Alcohol and Drug Abuse Patient Records regulations: The Federal rules restrict any use of the information to criminally investigate or prosecute any alcohol or drug abuse patient.[facility] HospitalIn the event this information is protected by the Federal Confidentiality of Alcohol and Drug Abuse Patient Records regulations: The Federal rules restrict any use of the information to criminally investigate or prosecute any alcohol or drug abuse patient.[facility] HospitalIn the event this information is protected by the Federal Confidentiality of Alcohol and Drug Abuse Patient Records regulations: The Federal rules restrict any use of the information to criminally investigate or prosecute any alcohol or drug abuse patient.[facility] Reason for Visit (unrecogniz ed section and content) Reason Comments Diabetes Reason Comments B-12 Injection Reason Onset Date Comments Refill Request 09/22/2021 Reason Comments Results Reason Comments Appointment Reason Comments Results Reason Comments Fatigue Reason Onset Date Comments Refill Request 10/21/2021 Reason Comments CARD New Patient Consult no issues Specialty Diagnoses / Procedures Referred By Liliana t Referred To Contact Cardiology Diagnoses Shortness of breath on exertion Irregular heart beat Fatigue, unspecified type Procedures CONSULT TO CARDIOLOGY OFFICE/OUTPATIENT NEW HIGH MDM 60-74 MINUTES Comfort Patterson, CORD MAKER.PLANT CONTROL AIDE [address] [place] [address] Referral ID Status Reason Start Date Expiration Date Visits Requested Visits Authorized [id number] Pending Review PCP Requested Referral 10/28/2021 10/07/2022 [...] RSPSE SPMTRY PRE&POST-BRNCDILAT ADMN Guillaume Dominguez MD [address] [place], [place] [id number] Respiratory [place] [id number] Referral ID Status Reason Start Date Expiration Date V isits Requested Visits Authorized [id number] Closed Auto-Generate d Referral 04/27/2022 05/27/2023 1 1 Specialty Diagnoses / Procedures Referred By Contac t Referred To Contact [facility] Diagnoses FIELD (dyspnea on exertion) Chronic cough Procedures LUNG VOLUMES Guillaume Dominguez MD [address] [place] [id number] [address] [address] Referral ID Status Reason Start Date Expiration Date V isits Requested Visits Authorized [id number] Closed Auto-Generate d Referral 04/28/2022 05/30/2022 1 [...] EVALUATION HIGH COMPLEX 45 MINS Oralia Garcia, CORD MAKER.CONSULTING SERVICES ASSOCIATE [address] [place] [address] [facility] [place] [address] Referral ID Status Reason Start Date Expiration Date V isits Requested Visits Authorized [id number] Closed Auto-Generate d Referral 05/31/2022 05/30/2023 1 [...] MIN. Juanita Wharton, PT, DPT [address] [place] [address] [facility] [place] [id number] Referral ID Status Reason Start Date Expiration Date Visits Requested Visits Authorized [id number] Authorized PCP Requested Referral Auto-Generate d Referral [...] MIN. Juanita Wharton, PT, DPT [address] [address] [facility] [place] [address] [place] [address] Reason Onset Date Comments Refill Request 09/23/2022 Reason Onset Date Comments Refill Request 09/25/2022 Reason Comments Anticoagulation Referral ID Status Reason Start Date Expiration Date V isits Requested Visits Authorized [id number] Closed PCP Requested Referral Auto-Generated Referral 08/19/2022 [...] EST RS PT ORTH Veda Rocha [address] [address] Nhi Iverson, PT Referral ID Status Reason Start Date Expiration Date V isits Requested Visits Authorized [id number] Authorized 10/12/2022 01/28/2023 10 10 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 Reason Comments Follow Up Non-insulin [...] atrial complexes Procedures CONSULT TO CARDIOLOGY OFFICE/OUTPATIENT [facility] 60-74 MINUTES Guillaume Dominguez MD [address] [place] [address] Maykel Whitfield, [address] [place] [id number] Referral ID Status Reason Start Date Expiration Date Visits Requested Visits Authorized [id number] Pending Review PCP Requested Referral 08/15/2022 08/15/2023 1 1 Reason Comments Forms Reason Comments Reminder Call Reason Onset Date Comments Recheck Immunizations 02/02/2023 Flu vaccination Reason Onset Date Comments Refill Request 02/19/2023 Reason Comments Refill Request Reason Comments Non-insulin Dependent Diabetes Mellitus Reason Onset Date Comments Established Patient Memory issue s. Breast Problem 05/14/2023 Mammogram at [facility] Reason Comments Follow Up Room 12"We don't kno w why we are here."ECHO, ECG, Stress results Reason Comments Abnormal mammogram letter Reason Comments Mammogram Result Call Back Reason Comments Brain Wellness Specialty Diagnoses / Procedures Referred By Liliana silva Referred To Contact Diagnoses Memory difficulties Procedures CONSULT TO [facility] OFFICE/OUTPATIENT [facility] MDM 60 MINUTES Comfort Patterson, CORD MAKER.PLANT CONTROL AIDE [address] [place] [address] Referral ID Status Reason Start Date Expiration Date V isits Requested Visits Authorized [id number] Closed PCP Requested Referral 06/15/2023 06/14/2024 1 [...] requesting allergy list to be fax[facility] to [facility] Reason Comments Cardiac Clearance Anticoagulation Reason Comments Follow Up Back Pain Reason Comments Faxed to [facility] Reason Comments F/U 6 months Reason Comments [facility] requesting record s Reason Comments Established Patient Reason Comments Medication Dosage Adjustment Reason Onset Date Comments Population Health Navigation Outreach [facility]17[facility]20[facility] Reason Onset Date Comments Population Health Navigation Outreach 09/18/2024 [facility] Care Teams (unrecognized sec tion and content) Bingo Checker Relationship Specialty Start Date End Date Guillaume Dominguez MD [address] [facility] [place] [address] PCP - General 07/30/04 Bingo Checker Relationship Specialty Start Date End Date Guillaume Dominguez MD [address] [facility] [place] [address] PCP - General 07/30/04 Bingo Checker Relationship Specialty Start Date End Date Guillaume Dominguez MD [address] [place] [address], [place] [address] PCP - General 07/30/04 Bingo Checker Relationship Specialty Start Date End Date Guillaume Dominguez MD [address] [place] [address], [place] [address] PCP - General 07/30/04 Bingo Checker Relationship Specialty Start Date End Date Guillaume Dominguez MD [facility] [place] [address] PCP - General 07/30/04 Bingo Checker Relationship Specialty Start Date End Date Guillaume Dominguez MD [facility] [place] [address] PCP - General 07/30/04 Bingo Checker Relationship Specialty Start Date End Date Guillaume Dominguez MD [facility] [place] [address] PCP - General 07/30/04 Bingo Checker Relationship Specialty Start Date End Date Guillaume Dominguez MD [facility] [place] [address] PCP - General 07/30/04 Bingo Checker Relationship Specialty Start Date End Date Guillaume Dominguez MD [address] [place] [address], [place] [address] PCP - General 07/30/04 Bingo Checker Relationship Specialty Start Date End Date Guillaume Dominguez MD [address] [facility] [place] [address] PCP - General 07/30/04 Bingo Checker Relationship Specialty Start Date End Date Guillaume Dominguez MD [address] [facility] [place] [address] PCP - General 07/30/04 Bingo Checker Relationship Specialty Start Date End Date Guillaume Domingeuz MD [address] [facility] [place] [address] PCP - General 07/30/04 Bingo Checker Relationship Specialty Start Date End Date Guillaume Dominguez MD [address] [place] [address], [place] [address] PCP - General 07/30/04 Bingo Checker Relationship Specialty Start Date End Date Guillaume Dominguez MD [address] [place] [address], [place] [address] PCP - General 07/30/04 Bingo Checker Relationship Specialty Start Date End Date Guillaume Dominguez MD [address] [facility] [place] [address] PCP - General 07/30/04 Bingo Checker Relationship Specialty Start Date End Date Guillaume Dominguez MD [address] [facility] [place] [address] PCP - General 07/30/04 Bingo Checker Relationship Specialty Start Date End Date Guillaume Dominguez MD [facility] [place] [address] PCP - General 07/30/04 Bingo Checker Relationship Specialty Start Date End Date Guillaume Dominguez MD [address] [place] [address], [place] [address] PCP - General 07/30/04 Bingo Checker Relationship Specialty Start Date End Date Guillaume Dominguez MD [address] [facility] [place] [address] PCP - General 07/30/04 Bingo Checker Relationship Specialty Start Date End Date Guillaume Dominguez MD [address] [place] [address], [place] [address] PCP - General 07/30/04 Bingo Checker Relationship Specialty Start Date End Date Guillaume Dominguez MD [address] [place] [address], [place] [address] PCP - General 07/30/04 Bingo Checker Relationship Specialty Start Date End Date Guillaume Dominguez MD [address] [place] [address], [place] [address] PCP - General 07/30/04 Bingo Checker Relationship Specialty Start Date End Date Guillaume Dominguez MD [address] [place] [address], [place] [address] PCP - General 07/30/04 Bingo Checker Relationship Specialty Start Date End Date Guillaume Dominguez MD [address] [place] [address], [place] [address] PCP - General 07/30/04 Bingo Checker Relationship Specialty Start Date End Date Guillaume Dominguez MD [address] [place] [address], [place] [address] PCP - General 07/30/04 Bingo Checker Relationship Specialty Start Date End Date Guillaume Dominguez MD [address] [place] [address], [place] [address] PCP - General 07/30/04 Bingo Checker Relationship Specialty Start Date End Date Guillaume Dominguez MD [address] [place] [address], [place] [address] PCP - General 07/30/04 Bingo Checker Relationship Specialty Start Date End Date Guillaume Dominguez MD [address] [facility] [place] [address] PCP - General 07/30/04 Bingo Checker Relationship Specialty Start Date End Date Guillaume Dominguez MD [address] [place] [address], [place] [address] PCP - General 07/30/04 Bingo Checker Relationship Specialty Start Date End Date Guillaume Dominguez MD [address] [place] [address], [place] [address] PCP - General 07/30/04 Bingo Checker Relationship Specialty Start Date End Date Guillaume Dominguez MD [address] [place] [address], [place] [address] PCP - General 07/30/04 Bingo Checker Relationship Specialty Start Date End Date Guillaume Dominguez MD [address] [place] [address], [place] [address] PCP - General 07/30/04 Bingo Checker Relationship Specialty Start Date End Date Guillaume Dominguez MD [address] [place] [address], [place] [address] PCP - General 07/30/04 Bingo Checker Relationship Specialty Start Date End Date Guillaume Dominguez MD [address] [place] [address], [place] [address] PCP - General 07/30/04 Bingo Checker Relationship Specialty Start Date End Date Guillaume Dominguez MD [address] [place] [address], [place] [address] PCP - General 07/30/04 Bingo Checker Relationship Specialty Start Date End Date Guillaume Dominguez MD [address] [place] [address], [place] [address] PCP - General 07/30/04 Bingo Checker Relationship Specialty Start Date End Date Guillaume Dominguez MD [address] [place] [address] PCP - General 07/30/04 Bingo Checker Relationship Specialty Start Date End Date Guillaume Dominguez MD [address] [place] [address] PCP - General 07/30/04 Bingo Checker Relationship Specialty Start Date End Date Guillaume Dominguez MD [address] [place] [address] PCP - General 07/30/04 Bingo Checker Relationship Specialty Start Date End Date Guillaume Dominguez MD [address] [place] [address] PCP - General 07/30/04 Bingo Checker Relationship Specialty Start Date End Date Guillaume Dominguez MD [address] [place] [address] PCP - General 07/30/04 Bingo Checker Relationship Specialty Start Date End Date Guillaume Dominguez MD [address] [place] [address] PCP - General 07/30/04 Bingo Checker Relationship Specialty Start Date End Date Guillaume Dominguez MD [address] [place] [address] PCP - General 07/30/04 Bingo Checker Relationship Specialty Start Date End Date Guillaume Dominguez MD [address] [place] [address] PCP - General 07/30/04 Team Status: Active Member Role Status Dates Dr. Guillaume Dominguez MD Family Provider Active Dr. Guillaume Dominguez MD Primary Care Provider Active Team Status: Inactive Member Role Status Dates Dr. Guillaume Dominguez MD Primary Care Provider Active Dr. Natalya Medina MD Emergency Provider Active Bingo Checker Relationship Specialty Start Date End Date Guillaume Dominguez MD [address] [place] [address] PCP - General 07/30/04 Bingo Checker Relationship Specialty Start Date End Date Guillaume Dominguez MD [address] [place] [address] PCP - General 07/30/04 Bingo Checker Relationship Specialty Start Date End Date Guillaume Dominguez MD [address] [place] [address] PCP - General 07/30/04 Team Status: Inactive Member Role Status Dates Dr. Guillaume Dominguez MD Primary Care Provider Active Dr. Natalya Medina MD Attending Provider, Emergency Provider Active Team Status: Inactive Member Role Status Dates Dr. Guillaume Dominguez MD Primary Care Provider Active Dr. Kerwin Kumar DO Emergency Provider Active Bingo Checker Relationship Specialty Start Date End Date Guillaume Dominguez MD [address] [place] [address] PCP - General 07/30/04 Bingo Checker Relationship Specialty Start Date End Date Guillaume Dominguez MD [address] [place] [address] PCP - General 07/30/04 Bingo Checker Relationship Specialty Start Date End Date Guillaume Dominguez MD [address] [place] [address] PCP - General 07/30/04 Bingo Checker Relationship Specialty Start Date End Date Guillaume Dominguez MD [address] [place] [address] PCP - General 07/30/04 Bingo Checker Relationship Specialty Start Date End Date Guillaume Dominguez MD [address] [place] [address] PCP - General 07/30/04 Bingo Checker Relationship Specialty Start Date End Date Guillaume Dominguez MD [address] [place] [address] PCP - General 07/30/04 Bingo Checker Relationship Specialty Start Date End Date Guillaume Dominguez MD [address] [place] [address] PCP - General 07/30/04 Bingo Checker Relationship Specialty Start Date End Date Guillaume Dominguez MD [address] [place] [address] PCP - General 07/30/04 Bingo Checker Relationship Specialty Start Date End Date Guillaume Dominguez MD [address] [place] [address] PCP - General 07/30/04 Bingo Checker Relationship Specialty Start Date End Date Guillaume Dominguez MD [address] [place] [address] PCP - General 07/30/04 Bingo Checker Relationship Specialty Start Date End Date Guillaume Dominguez MD [address] [place] [address] PCP - General 07/30/04 Bingo Checker Relationship Specialty Start Date End Date Guillaume Dominguez MD [address] [place] [address] PCP - General 07/30/04 Bingo Checker Relationship Specialty Start Date End Date Guillaume Dominguez MD [address] [place] [address] PCP - General 07/30/04 Bingo Checker Relationship Specialty Start Date End Date Guillaume Dominguez MD [address] [place] [address] PCP - General 07/30/04 Bingo Checker Relationship Specialty Start Date End Date Guillaume Dominguez MD [address] [place] [address] PCP - General 07/30/04 Bingo Checker Relationship Specialty Start Date End Date Guillaume Dominguez MD [address] [place] [address] PCP - General 07/30/04 Bingo Checker Relationship Specialty Start Date End Date Guillaume Dominguez MD [address] [place] [address] PCP - General 07/30/04 Bingo Checker Relationship Specialty Start Date End Date Guillaume Dominguez MD [address] [place] [address] PCP - General 07/30/04 Bingo Checker Relationship Specialty Start Date End Date Guillaume Dominguez MD [address] [place] [address] PCP - General 07/30/04 Bingo Checker Relationship Specialty Start Date End Date Guillaume Dominguez MD [address] [place] [address] PCP - General 07/30/04 Bingo Checker Relationship Specialty Start Date End Date Guillaume Dominguez MD [address] [place] [address] PCP - General 07/30/04 Bingo Checker Relationship Specialty Start Date End Date Guillaume Dominguez MD [address] [place] [address] PCP - General 07/30/04 Bingo Checker Relationship Specialty Start Date End Date Guillaume Dominguez MD [address] [place] [address] PCP - General 07/30/04 Bingo Checker Relationship Specialty Start Date End Date Guillaume Dominguez MD [address] [place] [address] PCP - General 07/30/04 Bingo Checker Relationship Specialty Start Date End Date Guillaume Dominguez MD [address] [place] [address] PCP - General 07/30/04 Bingo Checker Relationship Specialty Start Date End Date Guillaume Dominguez MD [address] [place] [address] PCP - General 07/30/04 Comfort Patterson, CORD MAKER.PLANT CONTROL AIDE [address] [place] [address] Canal Equipment Mechanic Internal Medicine 05/08/24 Josefa Caputo CORD MAKER.CONSULTING SERVICES ASSOCIATE [address] [place] [address] Canal Equipment Mechanic Internal Medicine 05/08/24 Bingo Checker Relationship Specialty Start Date End Date Guillaume Dominguez MD [address] [place] [address] PCP - General 07/30/04 Comfort Patterson, CORD MAKER.PLANT CONTROL AIDE [address] [place] [address] Canal Equipment Mechanic Internal Medicine 05/08/24 Josefa Caputo CORD MAKER.CONSULTING SERVICES ASSOCIATE [address] [place] [address] Canal Equipment Mechanic Internal Medicine 05/08/24 Bingo Checker Relationship Specialty Start Date End Date Guillaume Dominguez MD [address] [place] [address] PCP - General 07/30/04 Comfort Patterson, CORD MAKER.PLANT CONTROL AIDE [address] [place] [address] Canal Equipment Mechanic Internal Medicine 05/08/24 Josefa Caputo CORD MAKER.CONSULTING SERVICES ASSOCIATE [address] [place] [address] Canal Equipment Mechanic Internal Medicine 05/08/24 Bingo Checker Relationship Specialty Start Date End Date Guillaume Dominguez MD [address] [facility] [place] [address] PCP - General 07/30/04 Bingo Checker Relationship Specialty Start Date End Date Guillaume Dominguez MD [address] [facility] [place] [address] PCP - General 07/30/04 Comfort Patterson, CORD MAKER.PLANT CONTROL AIDE [address] [place] [address] [facility] Internal Medicine 05/08/24 Josefa Caputo CORD MAKER.CONSULTING SERVICES ASSOCIATE [address] [place] [address] [facility] Internal Medicine 05/08/24 Bingo Checker Relationship Specialty Start Date End Date Guillaume Dominguez MD [address] [place] [address] PCP - General 07/30/04 Comfort Patterson, CORD MAKER.PLANT CONTROL AIDE [address] [place] [address] Canal Equipment Mechanic Internal Medicine 05/08/24 Joesfa Caputo CORD MAKER.CONSULTING SERVICES ASSOCIATE [address] [facility] [place] [address] [facility] Internal Medicine 05/08/24 Bingo Checker Relationship Specialty Start Date End Date Guillaume Dominguez MD [address] [facility] [place] [address] PCP - General 07/30/04 Comfort Patterson, CORD MAKER.PLANT CONTROL AIDE [address] [place] [address] Canal Equipment Mechanic Internal Medicine 05/08/24 Josefa Caputo APRN.CONSULTING SERVICES ASSOCIATE [address] [place] [address] Canal Equipment Mechanic Internal Medicine 05/08/24 Bingo Checker Relationship Specialty Start Date End Date Guillaume Dominguez [address] [place] [address] PCP - General Internal Medicine 08/02/24 Bingo Checker Relationship Specialty Start Date End Date Guillaume Dominguez MD [address] [place] [address] PCP - General 07/30/04 Comfort Patterson, CORD MAKER.PLANT CONTROL AIDE [address] [place] [address] Canal Equipment Mechanic Internal Medicine 05/08/24 Josefa Caputo APRN.CONSULTING SERVICES ASSOCIATE [address] [place] [address] Canal Equipment Mechanic Internal Medicine 05/08/24 Bingo Checker Relationship Specialty Start Date End Date Guillaume Dominguez MD [address] [place] [address] PCP - General 07/30/04 Comfort Patterson, CORD MAKER.PLANT CONTROL AIDE [address] [place] [address] Canal Equipment Mechanic Internal Medicine 05/08/24 Josefa Caputo APRN.CONSULTING SERVICES ASSOCIATE [address] [place] [address] [facility] Internal Medicine 05/08/24 Bingo Checker Relationship Specialty Start Date End Date Guillaume Dominguez MD [address] [place] [address] PCP - General 07/30/04 Comfort Patterson APRN.PLANT CONTROL AIDE [address] [facility] [place] [address] [facility] Internal Medicine 05/08/24 Josefa Caputo APRN.CONSULTING SERVICES ASSOCIATE [address] [facility] [place] [address] [facility] Internal Medicine 05/08/24 Team Status: Inactive Member [...] August 11, 2024 End: August 11, 2024 Bingo Checker Relationship Specialty Start Date End Date Guillaume Dominguez MD [address] [place] [address] PCP - General 07/30/04 Comfort Patterson, CORD MAKER.PLANT CONTROL AIDE [address] [place] [address] Canal Equipment Mechanic Internal Medicine 05/08/24 Josefa Caputo, CORD MAKER.CONSULTING SERVICES ASSOCIATE [address] [facility] [place] [address] [facility] Medicine 08/22/24 Team Status: Active Member [...] Provider Active S tart: September 26, 2024 Bingo Checker Relationship Specialty Start Date End Date Guillaume Dominguez [address] [place] [address] PCP - General Internal Medicine 08/02/24 Team Status: Inactive Member Role Status Dates Dr. Guillaume Dominguez MD Primary Care Provider Active Start: September 11, 2024 End: September 11, 2024 Deep BABCOCK MD Attending Provider Active S tart: September 11, 2024 End: September 11, 2024 Deep BABCOCK MD Referring Provider Active S tart: September 11, 2024 End: September 11, 2024 Team Status: Inactive Member Role Status Dates Dr. Guillaume Dominguez MD Primary Care Provider Active Start: September 26, 2024 End: September 26, 2024 Deep BABCOCK MD Attending Provider Active S tart: September 26, 2024 End: September 26, 2024 Deep BABCOCK MD Referring Provider Active S tart: September 26, 2024 End: September 26, 2024 Team Status: Active Member Role Status Dates Dr. Guillaume Dominguez MD Primary Care Provider Active Start: October 26, 2024 Deep BABCOCK MD Attending Provider Active S tart: October 26, 2024 Team Status: Active Member Role Status Dates Dr. Guillaume Dominguez MD Primary Care Provider Active Start: October 31, 2024 Deep BABCOCK MD Attending Provider Active S tart: October 31, 2024 Bingo Checker Relationship Specialty Start Date End Date Guillaume Dominguez MD [address] [place], [place] [address] PCP - General 07/30/04 Josefa Caputo APRN.CONSULTING SERVICES ASSOCIATE [address] [place], [place] [id number] Canal Equipment Mechanic Internal Medicine 08/22/24 Comfort Patterson APRN.PLANT CONTROL AIDE [address] [place], [place] [id number] [facility] Medicine 10/18/24 Goals (unrecognized section and content) Goals may [...] BE BASED ON THE PRIMARY CLINICAL RECORDS. [employer] [facility]. provides no warranty or guarantee of the accuracy or completeness of information in this document.
[2025-01-26 09:41] LABS: Vitamin B12 511 pg/mL (180-914)
== END ==
LOC: OLS.ACH 05:00
PROVIDERS: PCP Internal Medicine; Visit Provider Internal Medicine
DX: D50.0 Iron deficiency anemia secondary to blood loss (chronic) (principal); E11.65 Type 2 diabetes mellitus with hyperglycemia; E43 Unspecified severe protein-calorie malnutrition; S06.309D Unspecified focal traumatic brain injury with loss of consciousness of unspecified duration, subsequent encounter
CPT/HCPCS: 36415; 82607; 83036

== ENCOUNTER → 2025-04-20 | Outpatient (REF) | payer MEDICARE, SELFPAY ==
--- OUTSIDE RECORDS SUMMARY | 2025-04-20 04:41 | XMS RPT_ITS | CCD ---
Author Organization [facility] Care Team Providers Care Delivery Professional Name Role Phone ALLISON LEHMAN Unavailable Unavailable TALAMPAS, GUILLAUME Unavailable Unavailable TALAMPAS, GUILLAUME Unavailable Unavailable MORAIMA MONTELONGO Referring Unavailable Guillaume Dominguez MD Primary Care Provider Guillaume Dominguez MD Primary Care Provider Guillaume Dominguez MD Primary Care Provider Guillaume Dominguez MD Primary Care Provider MORAIMA MONTELONGO Attending Unavailable MORAIMA MONTELONGO Admitting Unavailable TALAMPJULIANNE, GUILLAUME Melody Primary Care Unavailable Patterson SOLE TIER.CUSTOMER INSIGHT ANALYST, Comfort Unavailable Flynn SOLE TIER.WOOD BOAT BUILDER SUPERVISOR, Josefa Unavailable Flynn SOLE TIER.WOOD BOAT BUILDER SUPERVISOR, Josefa Unavailable Analia Guillaume Melody Primary Care Provider NWROSALINO, ENYINNA Attending Unavailable NWACHUKU, ENYINNA Referring Unavailable TALAMPAS, GUILLAUME, Primary Care Unavailable TALAMPAS, GUILLAUME D Primary Care Unavailable NWACH[place]U, ENYINNA Attending Unavailable NIVIA VERMA Referring Unavailable TALAMPJULIANNE, GUILLAUME D Primary Care Unavailable Dr. Guillaume Dominguez MD Primary Care Provider [phone] Arden Leger MD Attending Provider [phone] Arden Leger MD Emergency Provider [phone] Jose De Jesus SCHMIDT, Deep Attending Provider Unavailable Jose De Jesus SCHMIDT, Deep Referring Provider Unavailable Flynn SOLE TIER.HIMA Josefa Unavailable Dr. Guillaume Dominguez MD Primary Care Provider Jose De Jesus SCHMIDT, Deep Attending Provider Unavailable Dr. Guillaume Dominguez MD Primary Care Provider [phone] Jose De Jesus SCHMIDT, Deep Attending Provider Unavailable Patterson GM.NANNETTE, Comfort Unavailable [phone] ADINA LAY Attending Unavailable TALAMPAS, GUILLAUME D Primary Care Unavailable TALAMPAS, GUILLAUME D Referring Unavailable TALAMPAS, GUILLAUME D Primary Care Unavailable JOSEFA CAPUTO Referring Unavailable TALAMPAS, GUILLAUME D Primary Care Unavailable PATTERSONCOMFORT Attending Unavailable TALAMPAS, GUILLAUME D Primary Care Unavailable ORALIA GARCIA Attending Unavailable TALAMPAS, GUILLAUME D Primary Care Unavailable TALAMPAS, GUILLAUME D Attending Unavailable TALAMPAS, GUILLAUME D Primary Care Unavailable Talampas, Guillaume D Primary Care Unavailable Deperro OLS, Deep Attending Unavailable Talampas, Guillaume D Primary Care Unavailable Deperro OLS, Deep Attending Unavailable Talampas, Guillaume D Primary Care Unavailable Deperro OLS, Deep Attending Unavailable Deperro OLS, Deep Referring Unavailable Talampas, Guillaume D Primary Care Unavailable Deperro OLS, Deep Attending Unavailable Deperro OLS, Deep Attending Unavailable Talampas, Guillaume D Primary Care Unavailable Talampas, Guillaume D Primary Care Unavailable Deperro OLS, Deep Attending Unavailable Talampas, Guillaume D Primary Care Unavailable Deperro OLS, Deep Attending Unavailable Talampas, Guillaume D Primary Care Unavailable Deperro OLS, Deep Attending Unavailable Deperro OLS, Deep Referring Unavailable Deperro OLS, Deep Attending Unavailable Talampas, Guillaume D Primary Care Unavailable Talampas, Guillaume D Primary Care Unavailable Deperro OLS, Deep Attending Unavailable Talampas, Guillaume D Referring Unavailable Talampas, Guillaume D Primary Care Unavailable Wade Neely Attending Unavailable Talampas, Guillaume D Primary Care Unavailable Deperro OLS, Deep Attending Unavailable Talampas, Guillaume D Primary Care Unavailable Deperro OLS, Deep Attending Unavailable Talampas, Guillaume D Primary Care Unavailable Deperro OLS, Deep Attending Unavailable Talampas, Guillaume D Primary Care Unavailable Deperro OLS, Deep Referring Unavailable Deperro OLS, Deep Attending Unavailable Arden Leger Attending Unavailable Talampas, Guillaume Melody Primary Care Unavailable Elana Domingueza Melody Primary Care Unavailable Deep Borden Attending Unavailable Elana Domingueza Melody Primary Care Unavailable Deep Borden Referring Unavailable Deep Borden Attending Unavailable Elana Domingueza Melody Primary Care Unavailable Deep Borden Attending Unavailable Analia Guillaume Melody Primary Care Unavailable Deep Borden Attending Unavailable Allergies Allergy Classification Reported Allergen(s) Allergy Type Date of Onset Reaction(s) Facility Angiotensin 2 Receptor Blockers (ARB) (2 sources) irbesartan Drug Allergy 5 Swelling [facility] Aspirin (2 sources) Aspirin Drug Allergy 2 Anaphylaxis [facility] Cephalosporins (antibiotic) (2 sources) Cephalexin Drug Allergy 2 Rash, Diarrhea [facility] Work Phone: Cholesterol Absorption Inhibitors (2 sources) ezetimibe Drug Allergy 5 [facility] egg extract (2 sources) egg extract Drug Allergy 7 Diarrhea [facility] exenatide (2 sources) exenatide Drug Allergy 7 [facility] HMG-CoA Reductase Inhibitors (statins) (8 sources) rosuvastatin Drug Allergy 5 [facility] Macrolides (antibiotic) (2 sources) Erythromycin Drug Allergy 8 Myalgia [facility] metFORMIN (2 sources) metFORMIN Drug Allergy 8 GI Upset [facility] Niacin (4 sources) Niacin Drug Allergy 5 Unknown [facility] NSAIDs (2 sources) Etodolac Drug Allergy 1 Contraindicati on-Medical Surgical [facility] Work Phone: Opioid Agonists (2 sources) HYDROcodone Drug Allergy 3 Itching [facility] Penicillins (antibiotic) (2 sources) Penicillins Drug Allergy 5 Rash [facility] Sulfonamides (antibiotic) (2 sources) Sulfonamides (Antibiotic) Drug Allergy 5 Rash [facility] (20 sources) atorvastatin; Translations: [ATORVASTATIN] Drug Allergy 5 Unknown [facility] Repository (20 sources) egg extract; Translations: [EGG] Drug Allergy 7 Diarrhea [facility] Repository (20 sources) erythromycin; Translations: [ERYTHROMYCIN] Drug Allergy 8 Myalgia [facility] Repository (20 sources) etodolac; Translations: [ETODOLAC] Drug Allergy 1 Contraindicati on-Medical Surgical [facility] Repository (20 sources) exenatide; Translations: [EXENATIDE] Drug Allergy 7 Unknown [facility] Repository (20 sources) ezetimibe; Translations: [EZETIMIBE] Drug Allergy 5 Rash [facility] Repository (20 sources) irbesartan; Translations: [IRBESARTAN] Drug Allergy 5 Swelling [facility] Repository (20 sources) niacin; Translations: [NIACIN (ANTIHYPERLIPIDE VERN)] Drug Allergy 5 [facility] Repository (20 sources) NSAIDs; Translations: [NSAIDS (NON-STEROIDAL ANTI-INFLAMMATOR Y DRUG)] Propensity to adverse reactions (disorder) 1 Other: See Comments, Intolerance [facility] Repository (20 sources) Penicillins; Translations: [PENICILLINS] Propensity to adverse reactions (disorder) 5 [facility] Repository (20 sources) pravastatin; Translations: [PRAVASTATIN SODIUM] Drug Allergy 5 [facility] Repository (20 sources) rosuvastatin; Translations: [ROSUVASTATIN CALCIUM] Drug Allergy 5 [facility] Repository (20 sources) salicylic acid; Translations: [SALICYLATES] Drug Allergy 5 Anaphylaxis [facility] Repository (20 sources) simvastatin; Translations: [SIMVASTATIN] Drug Allergy 5 Rash [facility] Repository (20 sources) Sulfonamides (Antibiotic); Translations: [SULFA (SULFONAMIDE ANTIBIOTICS)] Propensity to adverse reactions (disorder) 5 [facility] Repository (3 sources) OTHER; Translations: [OTHER] Propensity to adverse reactions (disorder) 9 [facility] Repository (20 sources) metFORMIN; Translations: [METFORMIN] Drug Allergy 8 GI Upset [facility] Other [place] Repository (20 sources) Niacin; Translations: [NIACIN] Drug Allergy 5 Unknown [facility] Repository (20 sources) duoderm [Other] Propensity to adverse reactions 9 Rash [facility] Work Phone: (20 sources) ointments [Other] Propensity to adverse reactions 9 [facility] (20 sources) tape [Other] Propensity to adverse reactions 8 [facility] (20 sources) Adhesive agent; Translations: [ADHESIVE] Allergy to substance 2 Itching [facility] (20 sources) Aspirin; Translations: [ASPIRIN] Drug Allergy 2 Anaphylaxis [facility] (3 sources) Egg Propensity to adverse reactions 2 Diarrhea [facility] Work Phone: [phone] (10 sources) Erythromycin Drug Allergy 2 Other [facility] (10 sources) Nonsteroidal Anti-inflammator y Compounds Propensity to adverse reactions 2 Other [facility] (10 sources) Pravastatin Drug Allergy 2 Rash [facility] (10 sources) rosuvastatin Drug Allergy 2 Unknown [facility] (10 sources) Nkrrrfv-Ski-Mig Reductase Inhibitor Allergy to substance 2 [facility] (3 sources) duoderm Allergy to substance 2 [facility] Work Phone: [phone] (3 sources) ointments Allergy to substance 2 [facility] Work Phone: [phone] (20 sources) Cephalexin; Translations: [CEPHALEXIN] Drug Allergy 2 Rash, Diarrhea [facility] Work Phone: (20 sources) HYDROcodone; Translations: [HYDROCODONE] Drug Allergy 3 Itching [facility] Work Phone: (8 sources) Dressing: Non-Medicated; Translations: [Dressing: Non-Medicated] Allergy to substance 3 Rash [facility] Comment on above: duoderm (20 sources) Adhesive Tape-Silicones; Translations: [ADHESIVE TAPE-SILICONES] Drug Intolerance 4 Itching [facility] Work Phone: (20 sources) oxyCODONE; Translations: [OXYCODONE] Drug Allergy 4 Mental Status Change, Itching [facility] Comment on above: per family (1 source) Aspirin Drug Allergy 4 [facility] Repository (1 source) Erythromycin Drug Allergy 4 [facility] Repository (1 source) HYDROcodone Drug Allergy 4 [facility] Repository (1 source) NSAIDs Drug allergy (disorder) 4 [facility] Repository (1 source) oxyCODONE Drug Allergy 4 [facility] Repository (1 source) Pravastatin Drug Allergy 4 [facility] Repository (1 source) rosuvastatin Drug Allergy 4 [facility] Repository (1 source) Lzrdmaw-Nzc-Dqp Reductase Inhibitor Drug allergy (disorder) 4 [facility] Repository Medications Current Medications Medication Drug [...] 2019 11:00pm take 2 tablets by mo [facility] once daily in the morning Calcium-Cholecalciferol, D3, [...] itching docusate sodium 50 mg / sennosides, long-term 8.6 mg oral tablet (20 sources) Start: End: take 1 tablet by mouth twice daily [...] Discontinued Start: 10-27-2022 take 1 capsule by [facility] once daily DULoxetine (CYMBALTA) 20 mg capsule Indications: Anxiety disorder, unspecified type , Radiculopathy, lumbar region , Chronic SI joint pain Take 1 capsule by mouth once daily. 30 capsule 2 10/27/2022 Active Comment on above: Take 1 capsule by [facility] once daily. take 1 capsule by mo [facility] once daily Take 2 capsules by [facility] once daily. ferrous sulfate 325 mg oral [...] Comment on above: Take 1 tablet by [facility] once daily. fluconazole 200 mg oral tablet (20 sources) Azole Antifungal Start: 01-14-2022 End: 07-29-2023 Fluconazole (Diflucan) 200 mg tablet Active 200 mg PO MOWE January 10, 2024 12:00am Start: 06-12-2021 End: [...] 2 MONTHS Take 2 tablets by mo [facility] every 72 hours. Two (2) X 200 mg tablets = 400 mg 2-3 times a week TAKE 1 TABLET 3x per week hydrALAZINE hydrochloride 10 mg oral tablet (9 sources) Arteriolar Vasodilator Start: 02-01-20 End: 05-19-20 take 1 tablet by mouth three times daily Hydralazine 10 mg Tablet Active 10 mg PO THREE TIMES A DAY 0 February 01, 2024 12:00am lactobacillus acidophilus [id number] unt oral capsule (14 sources) lactobacillus acidophilus 100 mg (1 billion cell) cap(s) Take 1 capsule by mouth once daily. Biotinex (Quantifeed probiotic) Active lidocaine 0.05 mg/mg medicated patch [...] on above: Take 1 capsule by mo [facility] twice daily for 7 days. 24 hr oxybutynin chloride 10 mg extended release oral tablet (20 sources) Cholinergic Muscarinic Antagonist Start: 03-31-2019 End: 09-17-2023 take 1 tablet by mouth once daily oxybutynin ER (DITROPAN XL) 10 mg 24 hr tablet Take 1 tablet by mouth once daily. 90 tablet 1 09/17/2023 Active Start: 03-31-2019 take 1 tablet by [facility] every twenty-four hours at bedtime Oxybutynin Chloride 10 MG tablet extended release 24hr Active 10 mg PO AT BEDTIME March 31, 2019 12:00am Comment on above: Take 1 tablet by [facility] once daily as needed. OVERACTIVE BLADDER take 1 tablet by [facility] once daily if needed for OVERACTIVE BLADDER Take 1 tablet by [facility] once daily. perflutren lipid microspheres 1.3 mL [...] in NaCl (PF) 0.9% 10 mL injection ([employer]) polyethylene glycol [id number] mg powder for oral solution (13 sources) [...] for Pain Score 1-5 Or Pre Pt/Ot 12 February 01, 2024 12:00am Start: 12-24-2023 End: 12-31-2023 [...] once every month. To be administered at [facility] by nurse 1 mL 12 11/11/2023 Active [...] on above: Take 1 tablet by [facility] every 6 hours as needed for Pain [...] mouth two times a day. 60 tablet 10/29/2023 05/06/2024 Discontinued (Side Effects) Start: 08-27-2020 take 2 tablets by [facility] twice daily, then take 1 tablet by [...] on above: Take 2,500 mcg by mo [facility] once daily. Blood-Glucose Meter, Drum-type (ACCU-CHEK COMPACT [...] above: USE DIRECTED. Blood-Glucose Meter,Continuous (DEXCOM G7 BURN TABLE OPERATOR) misc (20 sources) Start: 01-08-2023 End: 08-11-2023 Blood-Glucose Meter,Continuous (DEXCOM G7 BURN TABLE OPERATOR) misc Indications: Type 2 diabetes mellitus with peripheral neuropathy (HCC) use to check sugars 1 Each 0 01/08/2023 08/11/2023 Discontinued Start: 01-08-2023 Blood-Glucose Meter,Continuous (DEXCOM G7 BURN TABLE OPERATOR) misc Indications: Type 2 diabetes mellitus with peripheral neuropathy (HCC) use to check sugars 1 Each 0 01/08/2023 Active Start: 12-30-2022 End: 01-05-2023 Blood-Glucose Meter,Continuo us (DEXCOM G7 BURN TABLE OPERATOR) misc use to check sugars 1 Each 0 12/30/2022 01/05/2023 Discontinued Start: 12-30-2022 Blood-Glucose Meter,Continuous (DEXCOM G7 BURN TABLE OPERATOR) misc use to check sugars 1 [...] (10 sources) Histamine-1 Receptor Antagonist Start: 03-31-20 End: 01-10-20 24 take 1 capsule by mouth once daily Cetirizine 10 MG capsule Discontinued 10 mg PO DAILY March 31, 2019 12:00am January 10, 2024 11:17pm chlorhexidine gluconate 40 mg/ml medicated liquid soap (20 sources) Start: 06-12-19 End: 05-07-20 chlorhexidine (HIBICLENS) 4 % external liquid Indications: 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 Wash genitale area once a day for infectious vulvitis 473 mL 11 08/11/2023 05/07/2024 Discontinued (Adjust Sig - Block E-Cancel) Comment on above: Wash genitale area o nce a day for infectious vulvitis cholecalciferol, vitamin D3, (VITAMIN D3 ORAL) (20 sources) End: 05-07-20 cholecalciferol, vitamin D3, (VITAMIN D3 ORAL) Take [...] (20 sources) Lincosamide Antibacterial Start: 023 End: 024 take 2 capsules by mouth every hour clindamycin (CLEOCIN) 300 mg capsule take 2 capsules by mouth 1 hour prior to appointment 08/28/2022 05/07/2024 Discontinued (Adjust Sig - Block E-Cancel) Comment on above: take 2 capsules by [facility] 1 hour prior to appointment diphenhydrAMINE hydrochloride [...] at bedtime. Take 1 tablet by [facility] as needed (At bedtime). gabapentin 300 mg oral capsule (20 sources) Anti-epileptic Agent Start: 03-04-20 End: 03-29-20 take 1 capsule by mouth at bedtime Gabapentin 300 MG capsule Discontinued 300 mg PO AT BEDTIME March 04, 2015 12:00am January 10, 2024 11:26pm Comment on above: one in morning, two at bedtime Take 1 capsule by [facility] three times daily for 180 days. As [...] Comment on above: Take 2 tablets by mo [facility] daily with breakfast. hydrocortisone 25 mg/ml topical [...] on above: Take 4 tablets by [facility] daily with breakfast. methocarbamol 500 mg oral tablet (10 sources) Muscle Relaxant Start: 09-15-19 End: 10-15-19 take 1 tablet by mouth every twelve hours as needed methocarbamol (ROBAXIN) 500 mg tablet Take 1 tablet by mouth twice daily as needed. 60 tablet 0 09/14/2022 10/14/2022 Comment on above: [facility] ondansetron 4 mg [...] Comment on above: [facility] 6 hours as needed for nausea/vomiting. [...] MG-1 MG-300 MG CAP) (20 sources) Start: 019 End: 024 take 1 capsule by mouth once daily pnv/iron,carb/om-3/f a/fat 1(PRE- MULTIVITAMINS WITH MINERALS 27 MG-1 MG-300 MG CAP) Take 1 capsule by mouth once daily. 0 0 03/17/2019 05/07/2024 Discontinued (Adjust Sig - Block E-Cancel) Start: 03-17-2019 take 1 capsule by mo [facility] once daily pnv/iron,carb/om-3/fa/fat 1(PRE-JIMY MULTIVITAMINS WITH MINERALS 27 MG-1 MG-300 MG CAP) Take 1 capsule by mouth once daily. 0 0 03/17/2019 Active Comment on above: Take 1 capsule by mo [facility] once daily. regadenoson 0.4 mg injection (LEXISCAN) (1 source) Start: 01-29-20 End: 01-29-20 23 regadenoson 0.4 mg injection (LEXISCAN) rivaroxaban 15 mg oral tablet (10 sources) Factor Xa Inhibitor Start: 03-31-20 19 End: 01-10-20 24 take 1 tablet by mouth twice daily Rivaroxaban 15 MG tablet Discontinued 15 mg PO TWICE A DAY 42 March 31, 2019 12:00am January 10, 2024 11:26pm semaglutide (OZEMPIC) 0.25 mg or 0.5 mg (2 mg/3 mL) pen (9 sources) Start: 09-29-19 24 End: 12-10-19 24 inject 0.5 mg by subcutaneous injection every [...] 1 tablet by [facility]alt th once daily. tamsulosin hydrochloride 0.4 mg oral [...] Active Problems Problem Classification Problem Date Documented Date Episodic/Chronic Acute cerebrovascular disease (20 sources) Intracranial hemorrhage; Translations: [Nontraumatic intracranial hemorrhage, unspecified] Onset: 4 05-06-2024 Chronic Anxiety disorders (20 sources) Anxiety state; Translations: [Generalized anxiety disorder] Onset: 8 05-29-2019 Chronic Calculus of urinary tract (20 sources) Renal colic; Translations: [Unspecified renal colic] Episodic Cardiac dysrhythmias (20 sources) Irregular heart beat; Translations: [Cardiac arrhythmia, unspecified] Onset: 3 Chronic Complications of surgical procedures or medical care (20 sources) Post-surgical malabsorption; Translations: [Postsurgical malabsorption, not elsewhere classified] Onset: 9 07-19-2008 Chronic Conditions associated with dizziness or vertigo (1 source) Lightheadedness; Translations: [Dizziness and giddiness] Episodic Crushing injury or internal injury (3 sources) Crush injury of right middle finger; Translations: [Crushing injury of right middle finger, initial encounter] Episodic Deficiency and other anemia (1 source) Iron deficiency anemia secondary to blood loss (chronic); Translations: [Iron deficiency anemia secondary to blood loss (chronic)] Onset: 5 Chronic Deficiency and other anemia (1 source) Anemia; Translations: [Anemia, unspecified] 04-28-2024 Episodic Deficiency and other anemia (4 sources) Iron deficiency anemia; Translations: [Iron deficiency anemia, unspecified] 01-12-2024 Episodic Delirium, dementia, and amnestic and other cognitive disorders (20 sources) Dementia; Translations: [Unspecified dementia without behavioral disturbance] Onset: 4 05-12-2024 Chronic Diabetes mellitus with complications (20 sources) Type 2 diabetes mellitus; 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] Onset: 5 Chronic Diabetes mellitus without complication (4 sources) Diabetes mellitus; Translations: [Type 2 diabetes mellitus without complications] 01-12-2024 Chronic Diabetes mellitus without complication (1 source) Glycosuria; Translations: [Glycosuria] Episodic Disorders of lipid metabolism (20 sources) Hyperlipidemia; Translations: [Hyperlipidemia, unspecified] Onset: 5 04-21-2015 Chronic Essential hypertension (6 sources) Essential hypertension; Translations: [Essential (primary) hypertension] Chronic Fracture of neck of femur (hip) (16 sources) Closed intertrochanteric fracture; Translations: [Displaced intertrochanteric fracture of left femur, initial encounter for closed fracture] 01-20-2024 Episodic Fracture of upper limb (1 source) Open fracture finger distal phalanx, tuft; Translations: [Displaced fracture of distal phalanx of unspecified finger, initial encounter for open fracture] Episodic Glaucoma (20 sources) Unspecified glaucoma; Translations: [Unspecified glaucoma] 04-02-2005 Chronic Heart valve disorders (2 sources) Aortic valve sclerosis; 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] Onset: 4 05-09-2024 Chronic Immunizations and screening for infectious disease (4 sources) Needs influenza immunization; Translations: [Encounter for immunization] Episodic Inflammatory diseases of female pelvic organs (2 sources) Vulvitis; Translations: [Subacute and chronic vulvitis] Episodic Intracranial injury (20 sources) Traumatic hematoma of subdural space of neuraxis; Translations: [Traumatic subdural hemorrhage with loss of consciousness of unspecified duration, initial encounter] Onset: 4 05-06-2024 Episodic Malaise and fatigue (1 source) Fatigue; Translations: [Chronic fatigue, unspecified] 02-02-2023 Chronic Malaise and fatigue (9 sources) Fatigue; Translations: [Other fatigue] Episodic Miscellaneous mental health disorders (20 sources) Psychological finding; Translations: [Psychological and behavioral factors associated with disorders or diseases classified elsewhere] Onset: 7 03-29-2007 Chronic Mood disorders (6 sources) Moderate major depression, single episode; Translations: [Major depressive disorder, single episode, moderate] Chronic Mycoses (5 sources) Candidiasis of vulva; Translations: [Candidal vulvitis] Episodic Nausea and vomiting (1 source) Nausea; Translations: [Nausea] Episodic Nutritional deficiencies (20 sources) Vitamin D deficiency; Translations: [Vitamin D deficiency, unspecified] Onset: 3 01-25-2013 Chronic Occlusion or stenosis of precerebral arteries (20 sources) Carotid artery occlusion; Translations: [Occlusion and stenosis of unspecified carotid artery] Onset: 6 03-02-2007 Chronic Open wounds of extremities (1 source) Tear of skin; Translations: [Laceration without foreign body of left forearm, initial encounter] Episodic Open wounds of head; neck; and trunk (9 sources) Scalp laceration; Translations: [Laceration without foreign body of scalp, initial encounter] 03-01-2022 Episodic Other acquired deformities (1 source) Spondylolisthesis, lumbar region; Translations: [Spondylolisthesis of lumbar region] Onset: Episodic Other aftercare (20 sources) Long-term current use of anticoagulant; Translations: [manager terminal (current) use of anticoagulants] 03-01-2022 Episodic Other and ill-defined heart disease (1 source) Diastolic dysfunction; Translations: [Other ill-defined heart diseases] Chronic Other circulatory disease (10 sources) H/O: hypertension; Translations: [Personal history of other diseases of the circulatory system] 02-16-2022 Episodic Other diseases of bladder and urethra (4 sources) Overactive bladder; Translations: [Overactive bladder] 01-12-2024 Chronic Other endocrine disorders (4 sources) Hyperparathyroidism; Translations: [Hyperparathyroidism, unspecified] 01-12-2024 Chronic Other fractures (1 source) Other fracture of unspecified lumbar vertebra, initial encounter for closed fracture; Translations: [Other fracture of unspecified lumbar vertebra, initial encounter for closed fracture (HCC)] Onset: 9 Episodic Other hematologic conditions (10 sources) History [...] Translations: [Other specified disorders of brain] Onset: 4 05-06-2024 Chronic Other nervous system disorders (16 sources) Midline shift of brain; Translations: [Midline shift of brain due to hematoma] Onset: 4 05-07-2024 Chronic Other nervous system disorders (1 source) Other specified disorders of brain; Translations: [Other specified disorders of brain] Onset: 5 Chronic Other nervous system disorders (1 source) [...] Obese class II; Translations: [Obesity, unspecified] Onset: 3 02-02-2023 Chronic Other nutritional; endocrine; and metabolic disorders (20 sources) Obesity caused by energy imbalance; Translations: [Other obesity due to excess calories] Onset: 4 07-09-2023 Chronic Other nutritional; endocrine; and metabolic disorders (10 sources) History of hypercholesterolemia; Translations: [Personal history of other endocrine, nutritional [...] Localized scleroderma; 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]] Onset: 8 08-18-2007 Chronic Other skin disorders (20 sources) Lichen sclerosus et atrophicus; Translations: [Circumscribed scleroderma] Onset: 0 05-26-2021 Chronic Other skin disorders (1 source) Seborrheic keratosis; Translations: [Other seborrheic keratosis] 07-29-2023 Episodic Other upper respiratory disease (20 sources) Chronic rhinitis; Translations: [Chronic rhinitis] Onset: 5 01-20-2005 Chronic Other upper respiratory disease (4 sources) Allergic rhinitis; Translations: [Allergic rhinitis, unspecified] 01-12-2024 Chronic Residual codes; unclassified (2 sources) Obstructive [...] disorder with myelopathy, unspecified cervical region] Onset: 9 04-11-2009 Chronic Spondylosis; intervertebral disc disorders; other back problems (1 source) Spinal stenosis, lumbar region without neurogenic claudication; Translations: [Spinal stenosis of lumbar region, unspecified whether neurogenic claudication present] Onset: 9 Superficial injury; contusion (11 sources) Contusion of back; Translations: [Contusion of unspecified back wall of thorax, initial encounter] 02-26-2023 Episodic Unclassified (1 source) Unknown / UNK(Unknown) Onset: 8 Unclassified (20 sources) Aortic valve sclerosis; 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] Onset: 6 07-09-2015 Unclassified (1 source) Acute cough; Translations: [Acute cough] Onset: 5 Unclassified (1 source) Low back pain, unspecified; Translations: [Low back pain, unspecified] Onset: 5 Past or Other Problems Problem Classification Problem Date Documented Da te Episodic/Chronic Abdominal hernia (20 sources) Incisional hernia; Translations: [Incisional hernia without obstruction or gangrene] Onset: 03-17-2019 03-17-2019 Episodic Acute posthemorrhagic anemia (16 sources) Acute posthemorrhagic anemia; Translations: [Acute posthemorrhagic anemia] Onset: 05-07-2024 05-07-2024 Episodic Allergic reactions (20 sources) Contact dermatitis; Translations: [Unspecified contact dermatitis, unspecified cause] Onset: 12-07-2007 12-07-2007 Episodic Biliary tract disease (20 sources) Gallstone; Translations: [Calculus of gallbladder without cholecystitis without obstruction] Onset: 04-09-2005 04-09-2005 Episodic Complications of surgical procedures or medical care (20 sources) Drug-induced hypotension; Translations: [Hypotension due to drugs] Onset: 03-08-2009 Resolved: 03-04-2016 02-02-2023 Episodic Deficiency and other anemia (20 sources) Pernicious anemia; Translations: [Vitamin B12 deficiency anemia due to intrinsic factor deficiency] Onset: 04-13-2007 05-29-2019 Episodic Deficiency and other anemia (1 source) Anemia, unspecified; Translations: [Anemia, unspecified type] Onset: 05-05-2024 Episodic E Codes: Fall (20 sources) Accidental fall ; Translations: [Unspecified fall, initial encounter] Onset: 05-07-2024 03-01-2022 Episodic Fluid and electrolyte disorders (16 sources) Hyperkalemia; Translations: [Hyperkalemia] Onset: 05-08-2024 05-08-2024 Episodic Genitourinary symptoms and ill-defined conditions (5 sources) Increased frequency of urination; Translations: [Frequency of micturition] Onset: 01-10-2024 Episodic Heart valve disorders (20 sources) Heart murmur; Translations: [Cardiac murmur, unspecified] Onset: 06-21-2014 06-21-2014 Episodic Nonspecific chest pain (20 sources) Chest pain, unspecified; Translations: [Atypical chest pain] Onset: 08-08-2014 08-08-2014 Episodic Nutritional deficiencies (15 sources) Iron deficiency; Translations: [Iron deficiency] Onset: 05-05-2024 Episodic Other acquired deformities (20 sources) Lumbar spondylolisthesis; Translations: [Spondylolisthesis, lumbar region] Onset: 10-20-2017 10-21-2017 Episodic Other aftercare (20 sources) Patient encounter status; Translations: [Encounter for therapeutic drug level monitoring] Onset: 08-12-2010 Resolved: 08-21-2021 02-02-2023 Episodic Other bone disease and musculoskeletal [...] of stomach; Translations: [Bariatric surgery status] Onset: 06-19-2014 Resolved: 08-21-2021 Episodic Other gastrointestinal disorders (20 sources) H/O: GIT by-pass; Translations: [Bariatric surgery status] Onset: 04-21-2015 04-21-2015 Episodic Other inflammatory condition of skin (20 sources) Pruritus of skin; Translations: [Pruritus, unspecified] Onset: 12-07-2007 Resolved: 10-27-2022 12-07-2007 Episodic Other inflammatory condition of skin (1 source) Pruritus, unspecified; Translations: [Pruritic condition] Onset: 04-28-2024 Episodic Other non-traumatic joint disorders (20 sources) Shoulder joint pain; Translations: [Pain in unspecified shoulder] Onset: 04-18-2013 Resolved: 08-18-2022 04-18-2013 Episodic Other non-traumatic joint disorders (20 sources) Hip pain; Translations: [Pain in left hip] Onset: 12-20-2020 12-20-2020 Episodic Other non-traumatic joint disorders (3 sources) Pain in right knee; Translations: [Pain in joint, lower leg] Onset: 12-27-2023 12-24-2023 Episodic Other nutritional; endocrine; and metabolic disorders (20 sources) Morbid obesity; Translations: [Morbid (severe) obesity due to excess calories] Onset: 08-18-2007 Resolved: 03-10-2019 03-10-2019 Chronic Other nutritional; endocrine; and metabolic disorders (20 sources) Body mass index 40+ - severely obese; Translations: [Morbid (severe) obesity due to excess calories] Onset: 01-05-2019 Resolved: 03-10-2019 03-10-2019 Chronic Pulmonary heart disease (20 sources) Pulmonary embolism; Translations: [Multiple subsegmental pulmonary emboli without acute cor pulmonale] Onset: 04-10-2019 04-10-2019 Episodic Residual codes; unclassified (16 sources) At risk of epileptic fits; Translations: [Other specified personal risk factors, not elsewhere classified] Onset: 05-06-2024 05-06-2024 Episodic Residual codes; unclassified (14 sources) Delirium; Translations: [Disorientation, unspecified] Onset: 05-12-2024 05-12-2024 Episodic Residual codes; unclassified (1 source) Localized edema; Translations: [Pedal edema] Onset: 04-28-2024 Episodic Spondylosis; intervertebral disc disorders; other back problems (20 sources) Thoracic radiculopathy; Translations: [Radiculopathy, thoracic region] Onset: 04-09-2015 Episodic Sprains and strains (20 sources) Lumbar sprain; Translations: [Sprain of ligaments of lumbar spine, initial encounter] Onset: 07-15-2012 07-15-2012 Episodic Unclassified (20 sources) Type 2 diabetes mellitus without complication; Translations: [Diabetes mellitus type 2, uncontrolled, without complications] Onset: 01-20-2005 Resolved: 08-21-2021 08-21-2021 Urinary tract infections (14 sources) Acute urinary tract infection; Translations: [Urinary tract infection, site not specified] Onset: 06-17-2024 Episodic Results Test Name Value Interpretation Reference Range Facility Hemoglobin A1con 01-26-2025 HbA1c (Bld) [Mass fraction] 6.3 % High <=5.6 [facility] Comment on above: Order Comment: 303-2 Result Comment: Norm al < 5.7 % Prediabetic 5.7 - 6.4 % Diabetic >or= 6.5 % Please note range changes. Performed By: #### L 503.0106, L501.9985 #### [facility] [address] [place], [address] Vitamin B12on 01-26-2025 Cobalamin (Vitamin B12) [Mass/Vol] 511 pg/mL Normal 180-914 [facility] Comment on above: Order Comment: 303-2 Performed By: #### L 503.0106, L501.9985 #### [facility] [address] [place] [place], [address] Hemoglobin A1con 12-19-2024 HbA1c (Bld) [Mass fraction] 6.4 % High <=5.6 [facility] Comment on above: Order Comment: 303.2 Result Comment: Norm al < 5.7 % Prediabetic 5.7 - 6.4 % Diabetic >or= 6.5 % Please note range changes. Performed By: #### L 500.2500, L100.0100 #### [facility] [address] [place], [place], [address] Hemoglobin A1con 11-03-2024 HbA1c (Bld) [Mass fraction] 6.7 % High <=5.6 [facility] Comment on above: Order Comment: 303.2 Result Comment: Norm al < 5.7 % Prediabetic 5.7 - 6.4 % Diabetic >or= 6.5 % Please note range changes. Performed By: #### L 501.9985 #### [facility] [address] [place], [place], [id number] Absolute lymphocyte countOrd ered By: Deep Dela Cruz on 10-31-2024 Lymphocytes Auto (Unsp spec) [#/Vol] 1.07 10*3/uL 0.83-4.51 [facility] Absolute neutrophil countOrd ered By: Deep Dela Cruz on 10-31-2024 Neutrophils (Bld) [#/Vol] 12.1 10*3/uL High 2.0-7.7 [facility] Anion gap in Serum or Plasma Ordered By: Deep Dela Cruz on 10-31-2024 Anion gap [Moles/Vol] 12 mmol/L 5-15 [facility] Automated lymphocyte count a s percentage of total leukocytesOrdered By: Deep Dela Cruz on 10-31-2024 Lymphocytes/100 WBC Auto (Unsp spec) 7.5 % Low 19-41 [facility] BUN/creatinine ratioOrdered By: Deep Dela Cruz on 10-31-2024 Urea nitrogen/Creatinine [Mass ratio] 60.5 mg/mg High 10-20 [facility] Basic Metabolic Profile (BMP )on 10-31-2024 BUN/CRE 60.5 RATIO High 10-20 [facility] Comment on above: Order Comment: 303.2 Performed By: #### L 300.4310, L300.3900 #### [facility] [address] [place], [address] Calcium [Mass/Vol] 9.9 mg/dL Normal 7.6-11.0 [facility] Comment on above: Order Comment: 303.2 Performed By: #### L 300.4310, L300.3900 #### [facility] [address] [place], [address] Chloride [Moles/Vol] 102 mmol/L Normal 98-108 [facility] Comment on above: Order Comment: 303.2 Performed By: #### L 300.4310, [id number] #### [facility] [address] [place], [address] CO2 [Moles/Vol] 21.8 mmol/L Normal 21.0-32.0 [facility] Comment on above: Order Comment: 303.2 Performed By: #### L 300.4310, [id number] #### [facility] [address] [place], [address] Creatinine [Mass/Vol] 0.56 mg/dL Low 0.70-1.20 [facility] Comment on above: Order Comment: 303.2 Performed By: #### L 300.4310, [id number] #### [facility] [address] [place], [address] GAP 12 Normal 5-15 [facility] Comment on above: Order Comment: 303.2 Performed By: #### L 300.4310, [id number] #### [facility] [address] [place], [address] GFR/1.73 sq M.predicted among non-blacks MDRD (S/P/Bld) [Vol rate/Area] 91 mL/min/{1.73_m2} Normal >60 [facility] Comment on above: Order Comment: 303.2 Result Comment: mL/m in/1.73m2 CKD-EPI Creatinine Equation (2020) Performed By: #### L 300.4310, L300.3900 #### [facility] [address] [place], [address] Glucose [Mass/Vol] 161 mg/dL High 70-99 [facility] Comment on above: Order Comment: 303.2 Performed By: #### L 300.4310, [id number] #### [facility] [address] [place], [address] Potassium [Moles/Vol] 3.8 mmol/L Normal 3.3-5.1 [facility] Comment on above: Order Comment: 303.2 Performed By: #### L 300.4310, [id number] #### [facility] [address] [place], [address] Sodium [Moles/Vol] 135 mmol/L Normal 133-145 [facility] Comment on above: Order Comment: 303.2 Performed By: #### L 300.4310, [id number] #### [facility] [address] [place], [address] Urea nitrogen [Mass/Vol] 34 mg/dL High 4-19 [facility] Comment on above: Order Comment: 303.2 Performed By: #### L 300.4310, [id number] #### [facility] [address] [place], [address] Basophil percentageOrdered B y: Deep Dela Cruz on 10-31-2024 Basophils/100 WBC (Bld) 0.4 % 0-1 [facility] CBC W/Diff, Automatedon 06-0 Absolute Lymph 1.07 X10 3/uL Normal 0.83-4.51 [facility] Comment on above: Order Comment: 303.2 Performed By: #### L 500.2500, L100.0100 #### [facility] [address] [place], [address] Absolute Neut 12.1 X10 3/uL High 2.0-7.7 [facility] Comment on above: Order Comment: 303.2 Performed By: #### L 500.2500, L100.0100 #### [facility] [address] [place], [address] Basophils/100 WBC (Bld) 0.4 % Normal 0-1 [facility] Comment on above: Order Comment: 303.2 Performed By: #### L 500.2500, L100.0100 #### [facility] [address] [place], [address] Eosinophils/100 WBC (Bld) 0.1 % Normal 0-5 [facility] Comment on above: Order Comment: 303.2 Performed By: #### L 500.2500, L100.0100 #### [facility] [address] [place], [address] Erythrocyte distribution width (RBC) [Ratio] 15.0 % High 11.6-14.6 [facility] Comment on above: Order Comment: 303.2 Performed By: #### L 500.2500, L100.0100 #### [facility] [address] [place], [address] Hematocrit (Bld) [Volume fraction] 34.0 % Low 37-47 [facility] Comment on above: Order Comment: 303.2 Performed By: #### L 500.2500, L100.0100 #### [facility] [address] [place], [address] Hemoglobin (Bld) [Mass/Vol] 11.1 g/dL Low 12.0-15.0 [facility] Comment on above: Order Comment: 303.2 Performed By: #### L 500.2500, L100.0100 #### [facility] [address] [place], [address] IG% 2.400 High 0.0-0.9 [facility] Comment on above: Order Comment: 303.2 Result Comment: IG% - Immature Granulocytes (promyelocytes, myelocytes and metamyelocytes) > 1% indicates that a LEFT SHIFT is Present. Performed By: #### L 500.2500, L100.0100 #### [facility] [address] [place], [address] Lymphocytes/100 WBC (Bld) 7.5 % Low 19-41 [facility] Comment on above: Order Comment: 303.2 Performed By: #### L 500.2500, L100.0100 #### [facility] [address] [place], [address] MCH (RBC) [Entitic mass] 30.0 pg Normal 27.0-32.0 [facility] Comment on above: Order Comment: 303.2 Performed By: #### L 500.2500, L100.0100 #### [facility] [address] [place], [address] MCHC (RBC) [Mass/Vol] 32.6 g/dL Normal 32-36 [facility] Comment on above: Order Comment: 303.2 Performed By: #### L 500.2500, L100.0100 #### [facility] [address] [place], [address] MCV (RBC) [Entitic vol] 91.9 fL Normal 81-99 [facility] Comment on above: Order Comment: 303.2 Performed By: #### L 500.2500, L100.0100 #### [facility] [address] [place], [address] Monocytes/100 WBC (Bld) 5.6 % Normal 0-10 [facility] Comment on above: Order Comment: 303.2 Performed By: #### L 500.2500, L100.0100 #### [facility] [address] [place], [address] Neutrophils/100 WBC (Bld) 84.0 % High 47-70 [facility] Comment on above: Order Comment: 303.2 Performed By: #### L 500.2500, L100.0100 #### [facility] [address] [place], [address] Nucleated RBC (Bld) [#/Vol] 0 10*3/uL Normal 0-5 [facility] Comment on above: Order Comment: 303.2 Performed By: #### L 500.2500, L100.0100 #### [facility] [address] [place], [address] Platelet mean volume (Bld) [Entitic vol] 10.0 fL Normal 6.2-12.0 [facility] Comment on above: Order Comment: 303.2 Performed By: #### L 500.2500, L100.0100 #### [facility] [address] [place], [address] Platelets (Bld) [#/Vol] 555 10*3/uL High 150-450 [facility] Comment on above: Order Comment: 303.2 Performed By: #### L 500.2500, L100.0100 #### [facility] [address] [place], [address] RBC (Bld) [#/Vol] 3.70 10*6/uL Low 4.2-5.4 [facility] Comment on above: Order Comment: 303.2 Performed By: #### L 500.2500, L100.0100 #### [facility] [address] [place], [address] RDW SD 50.1 fl High 35.1-43.9 [facility] Comment on above: Order Comment: 303.2 Performed By: #### L 500.2500, L100.0100 #### [facility] [address] [place], [address] WBC (Bld) [#/Vol] 14.4 10*3/uL High 4.4-11.0 [facility] Comment on above: Order Comment: 303.2 Performed By: #### L 500.2500, L100.0100 #### [facility] [address] [place], [address] Carbon dioxide, total [Moles /volume] in Central venous bloodOrdered By: Deep Dela Cruz on 10-31-2024 CO2 [Moles/Vol] 21.8 mmol/L 21.0-32.0 [facility] Chloride assayOrdered By: Fried on 10-31-2024 Chloride [Moles/Vol] 102 mmol/L 98-108 [facility] Eosinophil percentageOrdered By: Deep Dela Cruz on 10-31-2024 Eosinophils/100 WBC (Bld) 0.1 % 0-5 [facility] Erythrocyte distribution wid th ratioOrdered By: Deep Dela Cruz on 10-31-2024 Erythrocyte distribution width (RBC) [Ratio] 15.0 % High 11.6-14.6 [facility] Erythrocyte distribution wid th standard deviationOrdered By: Deep Dela Cruz on 10-31-2024 Erythrocyte distribution width (RBC) [Ratio] 50.1 fl High 35.1-43.9 [facility] Glomerular filtration rate ( GFR) estimation/1.73 sq m using serum, plasma, or whole bOrdered By: Deep Dela Cruz on 10-31-2024 GFR/1.73 sq M.predicted among non-blacks MDRD (S/P/Bld) [Vol rate/Area] 91 mL/min/{1.73_m2} >60 [facility] Comment on above: mL/min/1.73m2 CKD-EP I Creatinine Equation (2020) Hematocrit Auto (Bld) [Volum e fraction]Ordered By: Deep Dela Cruz on 10-31-2024 Hematocrit (Bld) [Volume fraction] 34.0 % Low 37-47 [facility] Hemoglobin measurementOrdere d By: Deep Dela Cruz on 10-31-2024 Hemoglobin (Bld) [Mass/Vol] 11.1 g/dL Low 12.0-15.0 [facility] Immature granulocytes/100 WB C Auto (Bld)Ordered By: Deep Dela Cruz on 10-31-2024 Immature granulocytes/100 WBC (Bld) 2.400 % High 0.0-0.9 [facility] Comment on above: IG% - Immature Granu locytes (promyelocytes, myelocytes and metamyelocytes) > 1% indicates that a LEFT SHIFT is Present. MCV (mean corpuscular volume ) determinationOrdered By: Deep Dela Cruz on 10-31-2024 MCV (RBC) [Entitic vol] 91.9 fL 81-99 [facility] Mean corpuscular hemoglobin (MCH) determinationOrdered By: Deep Dela Cruz on 10-31-2024 MCH (RBC) [Entitic mass] 30.0 pg 27.0-32.0 [facility] Mean corpuscular hemoglobin concentration (MCHC) determinationOrdered By: Deep Dela Cruz on 10-31-2024 MCHC (RBC) [Mass/Vol] 32.6 g/dL 32-36 [facility] Mean platelet volume determi nationOrdered By: Deep Dela Cruz on 10-31-2024 Platelet mean volume (Bld) [Entitic vol] 10.0 fL 6.2-12.0 [facility] Monocyte percentageOrdered B y: Deep Dela Cruz on 10-31-2024 Monocytes/100 WBC (Bld) 5.6 % 0-10 [facility] Neutrophil percentageOrdered By: Deep Dela Cruz on 10-31-2024 Neutrophils/100 WBC (Bld) 84.0 % High 47-70 [facility] Nucleated red blood cell per centageOrdered By: Deep Dela Cruz on 10-31-2024 Nucleated RBC/100 WBC (Bld) [Ratio] 0 % 0-5 [facility] Platelet countOrdered By: Fried on 10-31-2024 Platelets (Bld) [#/Vol] 555 10*3/uL High 150-450 [facility] Potassium measurement (mass/ volume)Ordered By: Deep Dela Cruz on 10-31-2024 Potassium (Unsp spec) [Mass/Vol] 3.8 mmol/L 3.3-5.1 [facility] RBC Auto (Bld) [#/Vol]Ordere d By: Deep Dela Cruz on 10-31-2024 RBC (Bld) [#/Vol] 3.70 10*6/uL Low 4.2-5.4 [facility] Serum creatinine measurement (mass/volume)Ordered By: Deep Dela Cruz on 10-31-2024 Creatinine [Mass/Vol] 0.56 mg/dL Low 0.70-1.20 [facility] Serum glucose measurement (m ass/volume)Ordered By: Deep Dela Cruz on 10-31-2024 Glucose [Mass/Vol] 161 mg/dL High 70-99 [facility] Serum or plasma calcium jessi urement (mass/volume)Ordered By: Deep Dela Cruz on 10-31-2024 Calcium [Mass/Vol] 9.9 mg/dL 7.6-11.0 [facility] Serum or plasma urea nitroge n measurement (mass/volume)Ordered By: Deep Dela Cruz on 10-31-2024 Urea nitrogen [Mass/Vol] 34 mg/dL High 4-19 [facility] Sodium levelOrdered By: Deep Dela Cruz on 10-31-2024 Sodium [Moles/Vol] 135 mmol/L 133-145 [facility] White blood cell (WBC) count Ordered By: Deep Dela Cruz on 10-31-2024 WBC (Bld) [#/Vol] 14.4 10*3/uL High 4.4-11.0 [facility] Anion gap in Serum or Plasma Ordered By: Deep Dela Cruz on 10-26-2024 Anion gap [Moles/Vol] 11 mmol/L 5-15 [facility] BUN/creatinine ratioOrdered By: Deep Dela Cruz on 10-26-2024 Urea nitrogen/Creatinine [Mass ratio] 51.9 mg/mg High 03-19 [facility] Basic Metabolic Profile (BMP )on 10-26-2024 BUN/CRE 51.9 RATIO High 03-19 [facility] Comment on above: Order Comment: 303.2 Performed By: #### L 300.3990, L300.3900 #### [facility] [place], [address] Calcium [Mass/Vol] 9.1 mg/dL Normal 7.6-11.0 [facility] Comment on above: Order Comment: 303.2 Performed By: #### L 300.4310, L300.3900 #### [facility] [address] [place], [address] Chloride [Moles/Vol] 102 mmol/L Normal 98-108 [facility] Comment on above: Order Comment: 303.2 Performed By: #### L 300.4310, L300.3900 #### [facility] [address] [place], [address] CO2 [Moles/Vol] 21.2 mmol/L Normal 21.0-32.0 [facility] Comment on above: Order Comment: 303.2 Performed By: #### L 300.4310, L300.3900 #### [facility] [address] [place], [address] Creatinine [Mass/Vol] 0.39 mg/dL Low 0.70-1.20 [facility] Comment on above: Order Comment: 303.2 Performed By: #### L 300.4310, L300.3900 #### [facility] [address] [place], [address] GAP 11 Normal 5-15 [facility] Comment on above: Order Comment: 303.2 Performed By: #### L 300.4310, L300.3900 #### [facility] [address] [place], [address] GFR/1.73 sq M.predicted among non-blacks MDRD (S/P/Bld) [Vol rate/Area] 99 mL/min/{1.73_m2} Normal >60 [facility] Comment on above: Order Comment: 303.2 Result Comment: mL/m in/1.73m2 CKD-EPI Creatinine Equation (2020) Performed By: #### L 300.4310, L300.3900 #### [facility] [address] [place], [address] Glucose [Mass/Vol] 114 mg/dL High 70-99 [facility] Comment on above: Order Comment: 303.2 Performed By: #### L 300.4310, L300.3900 #### [facility] [address] [place], [address] Potassium [Moles/Vol] 3.7 mmol/L Normal 3.3-5.1 [facility] Comment on above: Order Comment: 303.2 Performed By: #### L 300.4310, L300.3900 #### [facility] [address] [place], [address] Sodium [Moles/Vol] 135 mmol/L Normal 133-145 [facility] Comment on above: Order Comment: 303.2 Performed By: #### L 300.4310, L300.3900 #### [facility] [address] [place], [address] Urea nitrogen [Mass/Vol] 20 mg/dL High 4-19 [facility] Comment on above: Order Comment: 303.2 Performed By: #### L 300.4310, L300.3900 #### [facility] [address] [place], [address] CBC-Complete Blood Cnt No Di ffon 10-26-2024 Erythrocyte distribution width (RBC) [Ratio] 15.3 % High 11.6-14.6 [facility] Comment on above: Order Comment: 303.2 Performed By: #### L 300.4310, L300.3900 #### [facility] [address] [place], [address] Hematocrit (Bld) [Volume fraction] 33.1 % Low 37-47 [facility] Comment on above: Order Comment: 303.2 Performed By: #### L 300.4310, L300.3900 #### [facility] [address] [place], [address] Hemoglobin (Bld) [Mass/Vol] 10.5 g/dL Low 12.0-15.0 [facility] Comment on above: Order Comment: 303.2 Performed By: #### L 300.4310, L300.3900 #### [facility] [address] [place], [address] MCH (RBC) [Entitic mass] 30.1 pg Normal 27.0-32.0 [facility] Comment on above: Order Comment: 303.2 Performed By: #### L 300.4310, L300.3900 #### [facility] [address] [place], [address] MCHC (RBC) [Mass/Vol] 31.7 g/dL Low 32-36 [facility] Comment on above: Order Comment: 303.2 Performed By: #### L 300.4310, L300.3900 #### [facility] [address] [place], [address] MCV (RBC) [Entitic vol] 94.8 fL Normal 81-99 [facility] Comment on above: Order Comment: 303.2 Performed By: #### L 300.4310, L300.3900 #### [facility] [address] [place], [address] Platelet mean volume (Bld) [Entitic vol] 10.6 fL Normal 6.2-12.0 [facility] Comment on above: Order Comment: 303.2 Performed By: #### L 300.4310, L300.3900 #### [facility] [address] [place], [address] Platelets (Bld) [#/Vol] 328 10*3/uL Normal 150-450 [facility] Comment on above: Order Comment: 303.2 Performed By: #### L 300.4310, L300.3900 #### [facility] [address] [place], [address] RBC (Bld) [#/Vol] 3.49 10*6/uL Low 4.2-5.4 [facility] Comment on above: Order Comment: 303.2 Performed By: #### L 300.4310, L300.3900 #### [facility] [address] [place], [address] RDW SD 53.2 fl High 35.1-43.9 [facility] Comment on above: Order Comment: 303.2 Performed By: #### L 300.4310, L300.3900 #### [facility] [address] [place], [address] WBC (Bld) [#/Vol] 9.9 10*3/uL Normal 4.4-11.0 [facility] Comment on above: Order Comment: 303.2 Performed By: #### L 300.4310, L300.3900 #### [facility] [address] [place], [address] Carbon dioxide, total [Moles /volume] in Central venous bloodOrdered By: Deep Dela Cruz on 10-26-2024 CO2 [Moles/Vol] 21.2 mmol/L 21.0-32.0 [facility] Chloride assayOrdered By: Fried on 10-26-2024 Chloride [Moles/Vol] 102 mmol/L 98-108 [facility] Erythrocyte distribution wid th ratioOrdered By: Deep Dela Cruz on 10-26-2024 Erythrocyte distribution width (RBC) [Ratio] 15.3 % High 11.6-14.6 [facility] Erythrocyte distribution wid th standard deviationOrdered By: Deep Dela Cruz on 10-26-2024 Erythrocyte distribution width (RBC) [Ratio] 53.2 fl High 35.1-43.9 [facility] Glomerular filtration rate ( GFR) estimation/1.73 sq m using serum, plasma, or whole bOrdered By: Deep Dela Cruz on 10-26-2024 GFR/1.73 sq M.predicted among non-blacks MDRD (S/P/Bld) [Vol rate/Area] 99 mL/min/{1.73_m2} >60 [facility] Comment on above: mL/min/1.73m2 CKD-EP I Creatinine Equation (2020) Hematocrit Auto (Bld) [Volum e fraction]Ordered By: Deep Dela Cruz on 10-26-2024 Hematocrit (Bld) [Volume fraction] 33.1 % Low 37-47 [facility] Hemoglobin measurementOrdere d By: Deep Dela Cruz on 10-26-2024 Hemoglobin (Bld) [Mass/Vol] 10.5 g/dL Low 12.0-15.0 [facility] MCV (mean corpuscular volume ) determinationOrdered By: Deep Dela Cruz on 10-26-2024 MCV (RBC) [Entitic vol] 94.8 fL 81-99 [facility] Mean corpuscular hemoglobin (MCH) determinationOrdered By: Deep Dela Cruz on 10-26-2024 MCH (RBC) [Entitic mass] 30.1 pg 27.0-32.0 [facility] Mean corpuscular hemoglobin concentration (MCHC) determinationOrdered By: Deep Dela Cruz on 10-26-2024 MCHC (RBC) [Mass/Vol] 31.7 g/dL Low 32-36 [facility] Mean platelet volume determi nationOrdered By: Deep Dela Cruz on 10-26-2024 Platelet mean volume (Bld) [Entitic vol] 10.6 fL 6.2-12.0 [facility] Platelet countOrdered By: Fried on 10-26-2024 Platelets (Bld) [#/Vol] 328 10*3/uL 150-450 [facility] Potassium measurement (mass/ volume)Ordered By: Deep Dela Cruz on 10-26-2024 Potassium (Unsp spec) [Mass/Vol] 3.7 mmol/L 3.3-5.1 [facility] RBC Auto (Bld) [#/Vol]Ordere d By: Deep Dela Cruz on 10-26-2024 RBC (Bld) [#/Vol] 3.49 10*6/uL Low 4.2-5.4 [facility] Serum creatinine measurement (mass/volume)Ordered By: Deep Dela Cruz on 10-26-2024 Creatinine [Mass/Vol] 0.39 mg/dL Low 0.70-1.20 [facility] Serum glucose measurement (m ass/volume)Ordered By: Deep Dela Cruz on 10-26-2024 Glucose [Mass/Vol] 114 mg/dL High 70-99 [facility] Serum or plasma calcium jessi urement (mass/volume)Ordered By: Deep Dela Cruz on 10-26-2024 Calcium [Mass/Vol] 9.1 mg/dL 7.6-11.0 [facility] Serum or plasma urea nitroge n measurement (mass/volume)Ordered By: Deep Dela Cruz on 10-26-2024 Urea nitrogen [Mass/Vol] 20 mg/dL High 4-19 [facility] Sodium levelOrdered By: Deep Dela Cruz on 10-26-2024 Sodium [Moles/Vol] 135 mmol/L 133-145 [facility] White blood cell (WBC) count Ordered By: Deep Dela Cruz on 10-26-2024 WBC (Bld) [#/Vol] 9.9 10*3/uL 4.4-11.0 [facility] Hemoglobin A1con 09-26-2024 HbA1c (Bld) [Mass fraction] 5.8 % High <=5.6 [facility] Comment on above: Order Comment: 303-2 Result Comment: Norm al < 5.7 % Prediabetic 5.7 - 6.4 % Diabetic >or= 6.5 % Please note range changes. Performed By: #### L 503.0106, L501.9985 #### [facility] [address] [place] [address], [address] Hemoglobin A1c percentageOrd ered By: Deep Dela Cruz on 09-26-2024 HbA1c (Bld) [Mass fraction] 5.8 % High <5.7 [facility] Comment on above: Normal < 5.7 % Predi abetic 5.7 - 6.4 % Diabetic >or= 6.5 % Please note range changes. Anion gap in Serum or Plasma Ordered By: Deep Dela Cruz on 09-21-2024 Anion gap [Moles/Vol] 10 mmol/L 5-15 [facility] BUN/creatinine ratioOrdered By: Deep Dela Cruz on 09-21-2024 Urea nitrogen/Creatinine [Mass ratio] 20.3 mg/mg High 10-20 [facility] Bilirubin, totalOrdered By: Deep Dela Cruz on 09-21-2024 Bilirubin [Mass/Vol] 0.22 mg/dL 0.00-1.30 [facility] CBC-Complete Blood Cnt No Di ffon 09-21-2024 Erythrocyte distribution width (RBC) [Ratio] 18.6 % High 11.6-14.6 [facility] Comment on above: Order Comment: 303-2 Performed By: #### L 500.4050, L100.0500 #### [facility] [address] [place], [address] Hematocrit (Bld) [Volume fraction] 39.8 % Normal 37-47 [facility] Comment on above: Order Comment: 303-2 Performed By: #### L [id number], L100.0500 #### [facility] [address] [place], [address] Hemoglobin (Bld) [Mass/Vol] 12.4 g/dL Normal 12.0-15.0 [facility] Comment on above: Order Comment: 303-2 Performed By: #### L 500.4050, L100.0500 #### [facility] [address] [place], [address] MCH (RBC) [Entitic mass] 28.6 pg Normal 27.0-32.0 [facility] Comment on above: Order Comment: 303-2 Performed By: #### L 500.4050, L100.0500 #### [facility] [address] [place], [address] MCHC (RBC) [Mass/Vol] 31.2 g/dL Low 32-36 [facility] Comment on above: Order Comment: 303-2 Performed By: #### L [id number], L100.0500 #### [facility] [address] [place], [address] MCV (RBC) [Entitic vol] 91.9 fL Normal 81-99 [facility] Comment on above: Order Comment: 303-2 Performed By: #### L 500.4050, L100.0500 #### [facility] [address] [place], [address] Platelet mean volume (Bld) [Entitic vol] 10.4 fL Normal 6.2-12.0 [facility] Comment on above: Order Comment: 303-2 Performed By: #### L 500.4050, L100.0500 #### [facility] [address] [place], [address] Platelets (Bld) [#/Vol] 320 10*3/uL Normal 150-450 [facility] Comment on above: Order Comment: 303-2 Performed By: #### L 500.4050, L100.0500 #### [facility] [address] [place], [address] RBC (Bld) [#/Vol] 4.33 10*6/uL Normal 4.2-5.4 [facility] Comment on above: Order Comment: 303-2 Performed By: #### L 500.4050, L100.0500 #### [facility] [address] [place], [address] RDW SD 62.9 fl High 35.1-43.9 [facility] Comment on above: Order Comment: 303-2 Performed By: #### L 500.4050, L100.0500 #### [facility] [address] [place], [address] WBC (Bld) [#/Vol] 6.5 10*3/uL Normal 4.4-11.0 [facility] Comment on above: Order Comment: 303-2 Performed By: #### L 500.4050, L100.0500 #### [facility] [address] [place], [address] Carbon dioxide, total [Moles /volume] in Central venous bloodOrdered By: Deep Dela Cruz on 09-21-2024 CO2 [Moles/Vol] 22.1 mmol/L 21.0-32.0 [facility] Chloride assayOrdered By: Fried on 09-21-2024 Chloride [Moles/Vol] 105 mmol/L 98-108 [facility] Comprehensive Metabolic Prof ilon 09-21-2024 Albumin [Mass/Vol] 2.6 g/dL Low 3.4-4.8 [facility] Comment on above: Order Comment: 303-2 Performed By: #### L 500.4050, L100.0500 #### [facility] [address] [place], [address] Albumin/Globulin [Mass ratio] 0.8 {ratio} Low 0.9-2.4 [facility] Comment on above: Order Comment: 303-2 Performed By: #### L 500.4050, L100.0500 #### [facility] [address] [place], [address] ALK PHOS 124 U/L High 35-104 [facility] Comment on above: Order Comment: 303-2 Performed By: #### L 500.4050, L100.0500 #### [facility] [address] [place], [address] ALT [Catalytic activity/Vol] 11 U/L Normal <=34 [facility] Comment on above: Order Comment: 303-2 Performed By: #### L 500.4050, L100.0500 #### [facility] [address] [place], [address] AST [Catalytic activity/Vol] 26 U/L Normal <=31 [facility] Comment on above: Order Comment: 303-2 Performed By: #### L 500.4050, L100.0500 #### [facility] [address] [place], [address] Bilirubin [Mass/Vol] 0.22 mg/dL Normal 0.00-1.30 [facility] Comment on above: Order Comment: 303-2 Performed By: #### L 500.4050, L100.0500 #### [facility] [address] [place], [address] BUN/CRE 20.3 RATIO High 10-20 [facility] Comment on above: Order Comment: 303-2 Performed By: #### L 500.4050, L100.0500 #### [facility] [address] [place], [address] Calcium [Mass/Vol] 8.9 mg/dL Normal 7.6-11.0 [facility] Comment on above: Order Comment: 303-2 Performed By: #### L 500.4050, L100.0500 #### [facility] [address] [place], [address] Chloride [Moles/Vol] 105 mmol/L Normal 98-108 [facility] Comment on above: Order Comment: 303-2 Performed By: #### L 500.4050, L100.0500 #### [facility] [address] [place], [address] CO2 [Moles/Vol] 22.1 mmol/L Normal 21.0-32.0 [facility] Comment on above: Order Comment: 303-2 Performed By: #### L 500.4050, L100.0500 #### [facility] [address] [place], [address] Creatinine [Mass/Vol] 0.66 mg/dL Low 0.70-1.20 [facility] Comment on above: Order Comment: 303-2 Performed By: #### L 500.4050, L100.0500 #### [facility] [address] [place], [address] GAP 10 Normal 5-15 [facility] Comment on above: Order Comment: 303-2 Performed By: #### L 500.4050, L100.0500 #### [facility] [address] [place], [address] GFR/1.73 sq M.predicted among non-blacks MDRD (S/P/Bld) [Vol rate/Area] 88 mL/min/{1.73_m2} Normal >60 [facility] Comment on above: Order Comment: 303-2 Result Comment: mL/m in/1.73m2 CKD-EPI Creatinine Equation (2020) Performed By: #### L 500.4050, L100.0500 #### [facility] [address] [place], [address] Globulin (S) [Mass/Vol] 3.5 g/dL Normal 2.2-4.2 [facility] Comment on above: Order Comment: 303-2 Performed By: #### L 500.4050, L100.0500 #### [facility] [address] [place], [address] Glucose [Mass/Vol] 81 mg/dL Normal 70-99 [facility] Comment on above: Order Comment: 303-2 Performed By: #### L 500.4050, L100.0500 #### [facility] [address] [place], [address] Potassium [Moles/Vol] 4.0 mmol/L Normal 3.3-5.1 [facility] Comment on above: Order Comment: 303-2 Performed By: #### L 500.4050, L100.0500 #### [facility] [address] [place], [address] Sodium [Moles/Vol] 137 mmol/L Normal 133-145 [facility] Comment on above: Order Comment: 303-2 Performed By: #### L 500.4050, L100.0500 #### [facility] [address] [place], [address] T PROT 6.1 g/dL Normal 5.9-8.4 [facility] Comment on above: Order Comment: 303-2 Performed By: #### L 500.4050, L100.0500 #### [facility] [address] [place], [address] Urea nitrogen [Mass/Vol] 13 mg/dL Normal 4-19 [facility] Comment on above: Order Comment: 303-2 Performed By: #### L 500.4050, L100.0500 #### [facility] [address] [place], [address] Erythrocyte distribution wid th ratioOrdered By: Deep Dela Cruz on 09-21-2024 Erythrocyte distribution width (RBC) [Ratio] 18.6 % High 11.6-14.6 [facility] Erythrocyte distribution wid th standard deviationOrdered By: Deep Dela Cruz on 09-21-2024 Erythrocyte distribution width (RBC) [Ratio] 62.9 fl High 35.1-43.9 [facility] Glomerular filtration rate ( GFR) estimation/1.73 sq m using serum, plasma, or whole bOrdered By: Deep Dela Cruz on 09-21-2024 GFR/1.73 sq M.predicted among non-blacks MDRD (S/P/Bld) [Vol rate/Area] 88 mL/min/{1.73_m2} >60 [facility] Comment on above: mL/min/1.73m2 CKD-EP I Creatinine Equation (2020) Hematocrit Auto (Bld) [Volum e fraction]Ordered By: Deep Dela Cruz on 09-21-2024 Hematocrit (Bld) [Volume fraction] 39.8 % 37-47 [facility] Hemoglobin measurementOrdere d By: Deep Dela Cruz on 09-21-2024 Hemoglobin (Bld) [Mass/Vol] 12.4 g/dL 12.0-15.0 [facility] - Chemistry and C hemistry - challengeOrdered By: Deep Dela Cruz on 09-21-2024 AST [Catalytic activity/Vol] 26 U/L <32 [facility] MCV (mean corpuscular volume ) determinationOrdered By: Deep Dela Cruz on 09-21-2024 MCV (RBC) [Entitic vol] 91.9 fL 81-99 [facility] Mean corpuscular hemoglobin (MCH) determinationOrdered By: Deep Dela Cruz on 09-21-2024 MCH (RBC) [Entitic mass] 28.6 pg 27.0-32.0 [facility] Mean corpuscular hemoglobin concentration (MCHC) determinationOrdered By: Deep Dela Cruz on 09-21-2024 MCHC (RBC) [Mass/Vol] 31.2 g/dL Low 32-36 [facility] Mean platelet volume determi nationOrdered By: Deep Dela Cruz on 09-21-2024 Platelet mean volume (Bld) [Entitic vol] 10.4 fL 6.2-12.0 [facility] Platelet countOrdered By: Fried on 09-21-2024 Platelets (Bld) [#/Vol] 320 10*3/uL 150-450 [facility] Potassium measurement (mass/ volume)Ordered By: Deep Dela Cruz on 09-21-2024 Potassium (Unsp spec) [Mass/Vol] 4.0 mmol/L 3.3-5.1 [facility] RBC Auto (Bld) [#/Vol]Ordere d By: Deep Dela Cruz on 09-21-2024 RBC (Bld) [#/Vol] 4.33 10*6/uL 4.2-5.4 [facility] Serum creatinine measurement (mass/volume)Ordered By: Deep Dela Cruz on 09-21-2024 Creatinine [Mass/Vol] 0.66 mg/dL Low 0.70-1.20 [facility] Serum globulin measurementOr dered By: Deep Dela Cruz on 09-21-2024 Globulin (S) [Mass/Vol] 3.5 g/dL 2.2-4.2 [facility] Serum glucose measurement (m ass/volume)Ordered By: Deep Dela Cruz on 09-21-2024 Glucose [Mass/Vol] 81 mg/dL 70-99 [facility] Serum or plasma alanine wilson otransferase (ALT) measurementOrdered By: Deep Dela Cruz on 09-21-2024 ALT [Catalytic activity/Vol] 11 U/L <35 [facility] Serum or plasma albumin jessi urement (mass/volume)Ordered By: Deep Dela Cruz on 09-21-2024 Albumin [Mass/Vol] 2.6 g/dL Low 3.4-4.8 [facility] Serum or plasma albumin/glob ulin mass ratioOrdered By: Deep Dela Cruz on 09-21-2024 Albumin/Globulin [Mass ratio] 0.8 {ratio} Low 0.9-2.4 [facility] Serum or plasma alkaline jero sphatase measurementOrdered By: Deep Dela Cruz on 09-21-2024 ALP [Catalytic activity/Vol] 124 U/L High 35-104 [facility] Serum or plasma calcium jessi urement (mass/volume)Ordered By: Deep Dela Cruz on 09-21-2024 Calcium [Mass/Vol] 8.9 mg/dL 7.6-11.0 [facility] Serum or plasma urea nitroge n measurement (mass/volume)Ordered By: Deep Dela Cruz on 09-21-2024 Urea nitrogen [Mass/Vol] 13 mg/dL 4-19 [facility] Sodium levelOrdered By: Deep Dela Cruz on 09-21-2024 Sodium [Moles/Vol] 137 mmol/L 133-145 [facility] Total proteinOrdered By: Janet Dela Cruz on 09-21-2024 Protein [Mass/Vol] 6.1 g/dL 5.9-8.4 [facility] White blood cell (WBC) count Ordered By: Deep Dela Cruz on 09-21-2024 WBC (Bld) [#/Vol] 6.5 10*3/uL 4.4-11.0 [facility] Urine Cultureon 09-15-2024 [facility] STRAIGHT CATH Urine Culture Morganella morganii sp morgani [place] Count 80,000-100,000 Klebsiella pneumoniae sp pneum Klebsiella pneumoniae sp pneum Morganella morganii sp morgani: REACTION Ampicillin Islt VERN >=32 R Ampicillin+Sulbac Islt VERN >=32 Ciprofloxacin Islt VERN >=4 R Gentamicin Islt VERN <=1 S levoFLOXacin Islt VERN 4 R Meropenem Islt VERN <=0.25 S Nitrofurantoin Islt VERN 128 R Pip+Tazo Islt VERN <=4 S TMP SMX Islt VERN <=20 S Klebsiella pneumoniae sp pneum: REACTION Ampicillin Islt VERN >=32 R Ampicillin+Sulbac Islt VERN 8 Cefepime Islt VERN <=0.12 S cefTRIAXone Islt VERN <=0.25 S Ciprofloxacin Islt VERN <=0.06 S B-Lactamase Extended Susc Islt NEG Gentamicin Islt VERN <=1 S levoFLOXacin Islt VERN <=0.12 S Meropenem Islt VERN <=0.25 S Nitrofurantoin Islt VERN 128 R Pip+Tazo Islt VERN 8 S TMP SMX Islt VERN <=20 S Normal [facility] Comment on above: Performed By: #### L 503.0106, L501.9985 #### [facility] [address] [place], [place], [address] Urinalysis, Completeon 09-12 AMORPHOUS 1+ Normal [facility] Comment on above: Order Comment: 303-2 Performed By: #### L 503.0106, [id number] #### [facility] [address] [place], [address] RBC 0-5 SEEN Normal 0-5 [facility] Comment on above: Order Comment: 303-2 Performed By: #### L 503.0106, [id number] #### [facility] [address] [place], [place], [address] TRIPLE PHOS 1+ /hpf Normal [facility] Comment on above: Order Comment: 303-2 Performed By: #### L 503.0106, [id number] #### [facility] [address] [place], [address] BACTERIA 3+ /hpf Normal None Seen [facility] Comment on above: Order Comment: 303-2 Performed By: #### L 503.0106, [id number] #### [facility] [address] [place], [address] WBC 10-25 SEEN Normal 0-5 [facility] Comment on above: Order Comment: 303-2 Performed By: #### L 503.0106, [id number] #### [facility] [address] [place], [address] EPI,SQUAMOUS 0 SEEN Normal 5-10 [facility] Comment on above: Order Comment: 303-2 Performed By: #### L 503.0106, [id number] #### [facility] [address] [place], [address] Mucus Ql (Urine sed) 0 SEEN Normal [facility] Comment on above: Order Comment: 303-2 Performed By: #### L 503.0106, L501.9985 #### [facility] [address] [place], [address] Amorphous sediment detection in urine sediment by light microscopyOrdered By: Deep Dela Cruz on 09-11-2024 Amorphous sediment LM Ql (Urine sed) 1+ [facility] Bilirubin Test strip Ql (U)O rdered By: Deep Dela Cruz on 09-11-2024 Bilirubin Ql (U) Negative Negative [facility] Ketones Test strip Ql (U)Ord ered By: Deep Dela Cruz on 09-11-2024 Ketones Ql (U) Negative Negative [facility] Microscopic analysis of urin e for red blood cells (RBC)Ordered By: Deep Dela Cruz on 09-11-2024 Microscopic analysis of urine for red blood cells (RBC) 0-5 SEEN /hpf 0-5 [facility] Mucus LM Ql (Urine sed)Order ed By: Deep Dela Curz on 09-11-2024 Mucus Ql (Urine sed) 0 SEEN /hpf [facility] Nitrite Test strip Ql (U)Ord ered By: Deep Dela Cruz on 09-11-2024 Nitrite Ql (U) Positive High Negative [facility] Protein Test strip Ql (U)Ord ered By: Deep Dela Cruz on 09-11-2024 Protein Ql (U) 100 mg/dl High Negative [facility] Squamous epithelial cells de tection in urine sediment by light microscopyOrdered By: Deep Dela Cruz on 09-11-2024 Epithelial cells.squamous LM Ql (Urine sed) 0 SEEN /hpf 5-10 [facility] Triple phosphate crystals de tection in urine sediment by light microscopyOrdered By: Deep Dela Cruz on 09-11-2024 Triple phosphate crystals LM Ql (Urine sed) 1+ /hpf [facility] Urine clarityOrdered By: Janet Dela Cruz on 09-11-2024 Clarity (U) Turbid Clear [facility] Urine color determinationOrd ered By: Deep Dela Cruz on 09-11-2024 Color (U) Yellow Yellow [facility] Urine cultureOrdered By: Janet Dela Cruz on 09-11-2024 Bacteria identified Cx Nom (U) Morganella morganii sp morgani Abnormal [facility] Bacteria identified Cx Nom (U) Klebsiella pneumoniae sp pneum Abnormal [facility] Urine glucose detectionOrder ed By: Deep Dela Cruz on 09-11-2024 Glucose Ql (U) Normal mg/dl Normal [facility] Urine leukocyte esterase det ection by dipstickOrdered By: Deep Dela Cruz on 09-11-2024 Leukocyte esterase Test strip Ql (U) 500 /ul High Negative [facility] Urine pHOrdered By: Deep hayes on 09-11-2024 pH (U) 8.0 [pH] 5.0 - 8.0 [facility] Urine sediment bacteria coun t by microscopy (number/high power field)Ordered By: Deep Dela Cruz on 09-11-2024 Bacteria LM.HPF (Urine sed) [#/Area] 3 /[HPF] None Seen [facility] Urine specific gravity measu rementOrdered By: Deep Dela Cruz on 09-11-2024 Specific gravity (U) [Rel density] 1.010 1.002-1.030 [facility] Urine urobilinogen measureme ntOrdered By: Deep Dela Cruz on 09-11-2024 Urobilinogen Ql (U) Normal mg/dl Normal [facility] White blood cell countOrdere d By: Deep Dela Cruz on 09-11-2024 White blood cell count 10-25 SEEN /hpf 0-5 [facility] Anion gap in Serum or Plasma Ordered By: Deep Dela Cruz on 08-11-2024 Anion gap [Moles/Vol] 10 mmol/L 5-15 [facility] BUN/creatinine ratioOrdered By: Deep Dela Cruz on 08-11-2024 Urea nitrogen/Creatinine [Mass ratio] 29.2 mg/mg High 10-20 [facility] Basic Metabolic Profile (BMP )on 08-11-2024 BUN/CRE 29.2 RATIO High - [facility] Comment on above: Order Comment: 303.2 Performed By: #### L 300.4310, L300.3900 #### [facility] [address] [place], [address] Calcium [Mass/Vol] 8.6 mg/dL Normal 7.6-11.0 [facility] Comment on above: Order Comment: 303.2 Performed By: #### L 300.4310, L300.3900 #### [facility] [address] [place], [address] Chloride [Moles/Vol] 103 mmol/L Normal 98-108 [facility] Comment on above: Order Comment: 303.2 Performed By: #### L 300.4310, L300.3900 #### [facility] [address] [place], [address] CO2 [Moles/Vol] 24.2 mmol/L Normal 21.0-32.0 [facility] Comment on above: Order Comment: 303.2 Performed By: #### L 300.4310, L300.3900 #### [facility] [address] [place], [address] Creatinine [Mass/Vol] 0.47 mg/dL Low 0.70-1.20 [facility] Comment on above: Order Comment: 303.2 Performed By: #### L 300.4310, L300.3900 #### [facility] [address] [place], [address] GAP 10 Normal 5-15 [facility] Comment on above: Order Comment: 303.2 Performed By: #### L 300.4310, L300.3900 #### [facility] [address] [place], [address] GFR/1.73 sq M.predicted among non-blacks MDRD (S/P/Bld) [Vol rate/Area] 95 mL/min/{1.73_m2} Normal >60 [facility] Comment on above: Order Comment: 303.2 Result Comment: mL/m in/1.73m2 CKD-EPI Creatinine Equation (2020) Performed By: #### L 300.4310, L300.3900 #### [facility] [address] [place], [address] Glucose [Mass/Vol] 77 mg/dL Normal 70-99 [facility] Comment on above: Order Comment: 303.2 Performed By: #### L 300.4310, L300.3900 #### [facility] [address] [place], [address] Potassium [Moles/Vol] 3.7 mmol/L Normal 3.3-5.1 [facility] Comment on above: Order Comment: 303.2 Performed By: #### L 300.4310, L300.3900 #### [facility] [address] [place], [address] Sodium [Moles/Vol] 137 mmol/L Normal 133-145 [facility] Comment on above: Order Comment: 303.2 Performed By: #### L 300.4310, L300.3900 #### [facility] [address] [place], [address] Urea nitrogen [Mass/Vol] 14 mg/dL Normal 4-19 [facility] Comment on above: Order Comment: 303.2 Performed By: #### L 300.4310, L300.3900 #### [facility] [address] [place] [place], [address] Carbon dioxide, total [Moles /volume] in Central venous bloodOrdered By: Deep Dela Cruz on 08-11-2024 CO2 [Moles/Vol] 24.2 mmol/L 21.0-32.0 [facility] Chloride assayOrdered By: Fried on 08-11-2024 Chloride [Moles/Vol] 103 mmol/L 98-108 [facility] GFR/1.73 sq M.predicted radha g non-blacks MDRD (S/P/Bld) [Vol rate/Area]Ordered By: Deep Dela Cruz on 08-11-2024 Estimated GFR (MDRD) Non-Af Amer 95 >60 [facility] Comment on above: mL/min/1.73m2 CKD-EP I Creatinine Equation (2020) Glomerular filtration rate ( GFR) estimation/1.73 sq m using serum, plasma, or whole bOrdered By: Deep Dela Cruz on 08-11-2024 GFR/1.73 sq M.predicted among non-blacks MDRD (S/P/Bld) [Vol rate/Area] 95 mL/min/{1.73_m2} >60 [facility] Comment on above: mL/min/1.73m2 CKD-EP I Creatinine Equation (2020) Hemoglobin A1con 08-11-2024 HbA1c (Bld) [Mass fraction] 6.6 % Normal <=5.6 [facility] Comment on above: Order Comment: 303.2 Performed By: #### L 300.4310, L300.3900 #### [facility] [address] [place], [place], [address] Hemoglobin A1c percentageOrd ered By: Deep Dela Cruz on 08-11-2024 HbA1c (Bld) [Mass fraction] 6.6 % >5.7 [facility] Potassium (Unsp spec) [Mass/ Vol]Ordered By: Deep Dela Cruz on 08-11-2024 Potassium [Moles/Vol] 3.7 mmol/L 3.3-5.1 [facility] Potassium measurement (mass/ volume)Ordered By: Deep Dela Cruz on 08-11-2024 Potassium (Unsp spec) [Mass/Vol] 3.7 mmol/L 3.3-5.1 [facility] Serum creatinine measurement (mass/volume)Ordered By: Deep Dela Cruz on 08-11-2024 Creatinine [Mass/Vol] 0.47 mg/dL Low 0.70-1.20 [facility] Serum glucose measurement (m ass/volume)Ordered By: Deep Dela Cruz on 08-11-2024 Glucose [Mass/Vol] 77 mg/dL 70-99 [facility] Serum or plasma calcium jessi urement (mass/volume)Ordered By: Deep Dela Cruz on 08-11-2024 Calcium [Mass/Vol] 8.6 mg/dL 7.6-11.0 [facility] Serum or plasma urea nitroge n measurement (mass/volume)Ordered By: Deep Dela Cruz on 08-11-2024 Urea nitrogen [Mass/Vol] 14 mg/dL 4-19 [facility] Sodium levelOrdered By: Deep Dela Cruz on 08-11-2024 Sodium [Moles/Vol] 137 mmol/L 133-145 [facility] L503.7505on 08-08-2024 Natriuretic peptide B (Bld) [Mass/Vol] 1235 pg/mL Normal <=1800 [facility] Comment on above: Order Comment: 303.2 Result Comment: Hear t Failure Unlikely: < 300 pg/mL Heart Failure Likely < 50 Years: > 450 pg/mL 50-75 Years: > 900 pg/mL >75 Years: > 1800 pg/mL Performed By: #### L 300.5790, L300.3900 #### [facility] [address] [place] [place], [address] Laboratory - Chemistry and C hemistry - challengeOrdered By: Deep Dela Cruz on 03-11-2025 Natriuretic peptide B (Bld) [Mass/Vol] 1235 pg/mL <1800 [facility] Comment on above: Heart Failure Unlike ly: < 300 pg/mLHeart Failure Likely< 50 Years: > 450 pg/mL50-75 Years: > 900 pg/mL>75 Years: > 1800 pg/mL CNOVon 08-03-2024 CNOV Normal [facility] CT HEAD WO IV CONTRASTon CT HEAD WO IV CONTRAST Patient Name: MIRIAM DE LA GARZA : 1940 [facility]#: [id number] Exam Date/Time: 08/02/2024 12:03 Procedure: CT HEAD [...] nontraumatic intracranial hemorrhage. Pt poor historian Normal [facility] CT Head WO contraston 2024 1. 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 2. No definite evidence of acute infarction, mass lesion, nor hemorrhage with moderate intracranial vascular calcification. Report Dictated on Electronically Signed By: Abhinav Loyola MD Electronically Signed Date/Time: 08/02/2024 6:14 PM EST [facility] Patient Name: MIRIAM SAEED : 1940 [...] unremarkable with cerumen right external auditory canal. [facility] Abhinav Loyola MD - 08/02/2024 Patient [...] Electronically Signed Date/Time: 08/02/2024 6:14 PM EST [facility] Radiology Study observation (narrative[facility] Head WO contrastOrdered B y: Abhinav Loyola on 08-02-2024 [facility] [employer] Work Phone: CNPNon 08-01-2024 CNPN Normal [facility] Comprehensive Metabolic Prof ilon 07-27-2024 Chloride [Moles/Vol] 102 mmol/L Normal 98-107 [facility] Comment on above: Performed By: #### L 500.2500, L100.0100 #### [facility] [address] [place], [address] CO2 [Moles/Vol] 20.6 mmol/L Low 21.0-32.0 [facility] Comment on above: Performed By: #### L 500.2500, L100.0100 #### [facility] [address] [place], [address] GAP 13 Normal 5-15 [facility] Comment on above: Performed By: #### L 500.2500, L100.0100 #### [facility] [address] [place], [address] Potassium [Moles/Vol] 4.5 mmol/L Normal 3.5-5.1 [facility] Comment on above: Performed By: #### L 500.2500, L100.0100 #### [facility] [address] [place], [address] Calcium [Mass/Vol] 8.5 mg/dL Normal 7.6-11.0 [facility] Comment on above: Performed By: #### L 500.2500, L100.0100 #### [facility] [address] [place], [address] EST GFR - AA TNP Normal >60 [facility] Comment on above: Performed By: #### L 500.2500, L100.0100 #### [facility] [address] [place], [address] Sodium [Moles/Vol] 136 mmol/L Normal 136-145 [facility] Comment on above: Performed By: #### L 500.2500, L100.0100 #### [facility] [address] [place], [address] BUN/creatinine ratioOrdered By: Deep Dela Cruz on 07-26-2024 Urea nitrogen/Creatinine [Mass ratio] 33.7 mg/mg High 10-20 [facility] Comment on above: Previous reported re sult: 32.5 RATIOEdited by: ERWIN on 07/27/24:1224 AMENDED REPORT 07/27/24 1224 BUN/CRE previously reported as: 32.5 H RATIO Bilirubin, totalOrdered By: Deep Dela Cruz on 07-26-2024 Bilirubin [Mass/Vol] mg/dL 0.00-1.30 [facility] Comment on above: Previous reported re sult: 0.18 mg/dLEdited by: ERWIN on 07/27/24:1224 AMENDED REPORT 07/27/24 1224 T BILI previously reported as: 0.18 mg/dL CBC-Complete Blood Cnt No Di ffon 07-26-2024 Erythrocyte distribution width (RBC) [Ratio] 16.2 % High 11.6-14.6 [facility] Comment on above: Performed By: #### L 500.2500, L100.0100 #### [facility] [address] [place], [address] Hematocrit (Bld) [Volume fraction] 36.6 % Low 37-47 [facility] Comment on above: Performed By: #### L 500.2500, L100.0100 #### [facility] [address] [place], [address] Hemoglobin (Bld) [Mass/Vol] 11.2 g/dL Low 12.0-15.0 [facility] Comment on above: Performed By: #### L 500.2500, L100.0100 #### [facility] [address] [place], [address] MCH (RBC) [Entitic mass] 27.7 pg Normal 27.0-32.0 [facility] Comment on above: Performed By: #### L 500.2500, L100.0100 #### [facility] [address] [place], [address] MCHC (RBC) [Mass/Vol] 30.6 g/dL Low 32-36 [facility] Comment on above: Performed By: #### L 500.2500, L100.0100 #### [facility] [address] [place], [address] MCV (RBC) [Entitic vol] 90.4 fL Normal 81-99 [facility] Comment on above: Performed By: #### L 500.2500, L100.0100 #### [facility] [address] [place], [address] Platelet mean volume (Bld) [Entitic vol] 11.1 fL Normal 6.2-12.0 [facility] Comment on above: Performed By: #### L 500.2500, L100.0100 #### [facility] [address] [place], [address] Platelets (Bld) [#/Vol] 205 10*3/uL Normal 150-450 [facility] Comment on above: Performed By: #### L 500.2500, L100.0100 #### [facility] [address] [place], [address] RBC (Bld) [#/Vol] 4.05 10*6/uL Low 4.2-5.4 [facility] Comment on above: Performed By: #### L 500.2500, L100.0100 #### [facility] [address] [place], [address] RDW SD 54.1 fl High 35.1-43.9 [facility] Comment on above: Performed By: #### L 500.2500, L100.0100 #### [facility] [address] [place], [address] WBC (Bld) [#/Vol] 5.4 10*3/uL Normal 4.4-11.0 [facility] Comment on above: Performed By: #### L 500.2500, L100.0100 #### [facility] [address] [place], [address] Creatinine [Moles/Vol]Ordere d By: Deep Dela Cruz on 07-26-2024 Creatinine [Mass/Vol] 0.5 mg/dL Low 0.6-1.0 [facility] Estimated glomerular filtrat ion rate (GFR) AmericanOrdered By: Deep Dela Cruz on 07-26-2024 Estimated GFR (MDRD) Amer TNP [facility] Comment on above: Test not performed GFR/1.73 sq M.predicted radha g non-blacks MDRD (S/P/Bld) [Vol rate/Area]Ordered By: Deep Dela Cruz on 07-26-2024 Estimated GFR (MDRD) Non-Af Amer 95 >60 [facility] Comment on above: mL/min/1.73m2 CKD-EP I Creatinine Equation (2020) Glomerular filtration rate ( GFR) estimation/1.73 sq m using serum, plasma, or whole bOrdered By: Deep Dela Cruz on 07-26-2024 GFR/1.73 sq M.predicted among non-blacks MDRD (S/P/Bld) [Vol rate/Area] 95 mL/min/{1.73_m2} >60 [facility] Comment on above: mL/min/1.73m2 CKD-EP I Creatinine Equation (2020) Hemoglobin A1con 07-26-2024 HbA1c (Bld) [Mass fraction] 6.4 % Normal <=5.6 [facility] Comment on above: Order Comment: 303.2 Performed By: #### L 500.2500, L100.0100 #### [facility] [address] [place], [place], [address] Laboratory - Chemistry and C hemistry - challengeOrdered By: Deep Dela Cruz on 07-26-2024 AST [Catalytic activity/Vol] 29 U/L <32 [facility] Potassium measurementOrdered By: Deep Dela Cruz on 07-26-2024 Potassium [Moles/Vol] 4.5 mmol/L 3.5-5.1 [facility] Serum anion gap measurementO rdered By: Deep Dela Cruz on 07-26-2024 Anion gap [Moles/Vol] 13 mmol/L 5-15 [facility] Serum globulin measurementOr dered By: Deep Dela Cruz on 07-26-2024 Globulin (S) [Mass/Vol] 3.5 g/dL 2.2-4.2 [facility] Comment on above: Previous reported re sult: 3.2 g/dLEdited by: ERWIN on 07/27/24:1224 AMENDED REPORT 07/27/24 1224 GLOB previously reported as: 3.2 g/dL Serum glucose measurement (m ass/volume)Ordered By: Deep Dela Cruz on 07-26-2024 Glucose [Mass/Vol] 68 mg/dL Low 70-99 [facility] Comment on above: Previous reported re sult: 74 mg/dLEdited by: ERWIN on 07/27/24:1224 AMENDED REPORT 07/27/24 1224 GLU previously reported as: 74 mg/dL Serum or plasma alanine wilson otransferase (ALT) measurementOrdered By: Deep Dela Cruz on 07-26-2024 ALT [Catalytic activity/Vol] 9 U/L <35 [facility] Comment on above: Previous reported re sult: 10 U/LEdited by: AUTOINS on 07/27/24:1224 AMENDED REPORT 07/27/24 1224 ALT previously reported as: 10 U/L Serum or plasma albumin jessi urement (mass/volume)Ordered By: Deep Dela Cruz on 07-26-2024 Albumin [Mass/Vol] 2.3 g/dL Low 3.4-4.8 [facility] Serum or plasma albumin/glob ulin mass ratioOrdered By: Deep Dela Cruz on 07-26-2024 Albumin/Globulin [Mass ratio] 0.7 {ratio} Low 0.9-2.4 [facility] Serum or plasma alkaline jero sphatase measurementOrdered By: Deep Dela Cruz on 07-26-2024 ALP [Catalytic activity/Vol] 156 U/L High 35-104 [facility] Comment on above: Previous reported re sult: 153 U/LEdited by: AUTOINS on 07/27/24:1224 AMENDED REPORT 07/27/24 1224 ALK P previously reported as: 153 H U/L Serum or plasma calcium jessi urement (mass/volume)Ordered By: Deep Dela Cruz on 07-26-2024 Calcium [Mass/Vol] 8.5 mg/dL 7.6-11.0 [facility] Serum or plasma carbon dioxi de measurement (moles/volume)Ordered By: Deep Dela Cruz on 07-26-2024 CO2 [Moles/Vol] 20.6 mmol/L Low 21.0-32.0 [facility] Serum or plasma chloride michelle surement (moles/volume)Ordered By: Deep Dela Cruz on 07-26-2024 Chloride [Moles/Vol] 102 mmol/L 98-107 [facility] Serum or plasma creatinine m easurement (moles/volume)Ordered By: Deep Dlea Cruz on 07-26-2024 Creatinine [Moles/Vol] 0.5 mg/dL Low 0.6-1.0 [facility] Serum or plasma urea nitroge n measurement (mass/volume)Ordered By: Deep Dela Cruz on 07-26-2024 Urea nitrogen [Mass/Vol] 17 mg/dL 4-19 [facility] Comment on above: Previous reported re sult: 16 mg/dLEdited by: AUTOINS on 07/27/24:1224 AMENDED REPORT 07/27/24 1224 BUN previously reported as: 16 mg/dL Sodium levelOrdered By: Deep Dela Cruz on 07-26-2024 Sodium [Moles/Vol] 136 mmol/L 136-145 [facility] Total proteinOrdered By: Janet Dela Cruz on 07-26-2024 Protein [Mass/Vol] 5.8 g/dL Low 5.9-8.4 [facility] Comment on above: Previous reported re sult: 5.5 g/dLEdited by: AUTOINS on 07/27/24:1224 AMENDED REPORT 07/27/24 1224 T PROT previously reported as: 5.5 L g/dL Erythrocyte distribution wid th (RBC) [Ratio]Ordered By: Deep Dela Cruz on 07-25-2024 Erythrocyte distribution width (RBC) [Entitic vol] 54.1 fL High 35.1-43.9 [facility] Erythrocyte distribution wid th ratioOrdered By: Deep Dela Cruz on 07-25-2024 Erythrocyte distribution width (RBC) [Ratio] 16.2 % High 11.6-14.6 [facility] Erythrocyte distribution wid th standard deviationOrdered By: Deep Dela Cruz on 07-25-2024 Erythrocyte distribution width (RBC) [Ratio] 54.1 fl High 35.1-43.9 [facility] Hematocrit Auto (Bld) [Volum e fraction]Ordered By: Deep Dela Cruz on 07-25-2024 Hematocrit (Bld) [Volume fraction] 36.6 % Low 37-47 [facility] Hemoglobin A1c percentageOrd ered By: Deep Dela Cruz on 07-25-2024 HbA1c (Bld) [Mass fraction] 6.4 % >5.7 [facility] Hemoglobin measurementOrdere d By: Deep Dela Cruz on 07-25-2024 Hemoglobin (Bld) [Mass/Vol] 11.2 g/dL Low 12.0-15.0 [facility] MCV (mean corpuscular volume ) determinationOrdered By: Deep Dela Cruz on 02-25-2025 MCV (RBC) [Entitic vol] 90.4 fL 81-99 [facility] Mean corpuscular hemoglobin (MCH) determinationOrdered By: Deep Dela Cruz on 07-25-2024 MCH (RBC) [Entitic mass] 27.7 pg 27.0-32.0 [facility] Mean corpuscular hemoglobin concentration (MCHC) determinationOrdered By: Deep Dela Cruz on 07-25-2024 MCHC (RBC) [Mass/Vol] 30.6 g/dL Low 32-36 [facility] Mean platelet volume determi nationOrdered By: Deep Dela Cruz on 07-25-2024 Platelet mean volume (Bld) [Entitic vol] 11.1 fL 6.2-12.0 [facility] Platelet countOrdered By: Fried on 07-25-2024 Platelets (Bld) [#/Vol] 205 10*3/uL 150-450 [facility] RBC Auto (Bld) [#/Vol]Ordere d By: Deep Dela Cruz on 07-25-2024 RBC (Bld) [#/Vol] 4.05 10*6/uL Low 4.2-5.4 [facility] White blood cell (WBC) count Ordered By: Deep Dela Cruz on 07-25-2024 WBC (Bld) [#/Vol] 5.4 10*3/uL 4.4-11.0 [facility] Basic Metabolic Profile (BMP )on 07-10-2024 BUN/CRE 43.1 RATIO High 10-20 [facility] Comment on above: Order Comment: 303.2 Performed By: #### L 500.2500, L100.0100 #### [facility] [address] [place], [address] CA,Total 8.6 mg/dL Normal 8.5-10.1 [facility] Comment on above: Order Comment: 303.2 Performed By: #### L 500.2500, L100.0100 #### [facility] [address] [place], [address] Chloride [Moles/Vol] 103 mmol/L Normal 98-107 [facility] Comment on above: Order Comment: 303.2 Performed By: #### L 500.2500, L100.0100 #### [facility] [address] [place], [address] CO2 [Moles/Vol] 28.0 mmol/L Normal 21.0-32.0 [facility] Comment on above: Order Comment: 303.2 Performed By: #### L 500.2500, L100.0100 #### [facility] [address] [place], [address] Creatinine [Mass/Vol] 0.44 mg/dL Low 0.55-1.02 [facility] Comment on above: Order Comment: 303.2 Result Comment: The validity of the calculated GFR GFRAA in patients over 70 years has not been determined. Clinical correlation is essential. Performed By: #### L 500.2500, L100.0100 #### [facility] [address] [place], [address] EST GFR - AA 175 mL/min Normal >60 [facility] Comment on above: Order Comment: 303.2 Result Comment: Afri can [place] GFR Calc Performed By: #### L 500.2500, L100.0100 #### [facility] [address] [place], [address] GAP 6 Normal 5-15 [facility] Comment on above: Order Comment: 303.2 Performed By: #### L 500.2500, L100.0100 #### [facility] [address] [place], [address] GFR/1.73 sq M.predicted among non-blacks MDRD (S/P/Bld) [Vol rate/Area] 145 mL/min/{1.73_m2} Normal >60 [facility] Comment on above: Order Comment: 303.2 Result Comment: Non- GFR Calc Performed By: #### L 500.2500, L100.0100 #### [facility] [address] [place], [address] Glucose [Mass/Vol] 103 mg/dL Normal 74-106 [facility] Comment on above: Order Comment: 303.2 Result Comment: Fast ing Glucose result from 100 to 125 mg/dL suggests IMPAIRED HOMEOSTASIS per A.D.A. criteria. Performed By: #### L 500.2500, L100.0100 #### [facility] [address] [place], [address] Potassium [Moles/Vol] 3.7 mmol/L Normal 3.5-5.1 [facility] Comment on above: Order Comment: 303.2 Performed By: #### L 500.2500, L100.0100 #### [facility] [address] [place], [address] Sodium [Moles/Vol] 137 mmol/L Normal 136-145 [facility] Comment on above: Order Comment: 303.2 Performed By: #### L 500.2500, L100.0100 #### [facility] [address] [place], [address] Urea nitrogen [Mass/Vol] 19 mg/dL High 7-18 [facility] Comment on above: Order Comment: 303.2 Performed By: #### L 500.2500, L100.0100 #### [facility] [address] [place], [address] Blood urea nitrogen (BUN)/cr eatinine ratioOrdered By: Deep Dela Cruz on 07-10-2024 Urea nitrogen/Creatinine [Mass ratio] 43.1 mg/mg High 10-20 [facility] CBC-Complete Blood Cnt No Di ffon 07-10-2024 Erythrocyte distribution width (RBC) [Ratio] 14.9 % High 11.6-14.6 [facility] Comment on above: Order Comment: 303.2 Performed By: #### L 500.2500, L100.0100 #### [facility] [address] [place], [address] Hematocrit (Bld) [Volume fraction] 31.3 % Low 37-47 [facility] Comment on above: Order Comment: 303.2 Performed By: #### L 500.2500, L100.0100 #### [facility] [address] [place], [address] Hemoglobin (Bld) [Mass/Vol] 10.0 g/dL Low 12.0-15.0 [facility] Comment on above: Order Comment: 303.2 Performed By: #### L 500.2500, L100.0100 #### [facility] [address] [place], [address] MCH (RBC) [Entitic mass] 28.7 pg Normal 27.0-32.0 [facility] Comment on above: Order Comment: 303.2 Performed By: #### L 500.2500, L100.0100 #### [facility] [address] [place], [address] MCHC (RBC) [Mass/Vol] 31.9 g/dL Low 32-36 [facility] Comment on above: Order Comment: 303.2 Performed By: #### L 500.2500, L100.0100 #### [facility] [address] [place], [address] MCV (RBC) [Entitic vol] 89.9 fL Normal 81-99 [facility] Comment on above: Order Comment: 303.2 Performed By: #### L 500.2500, L100.0100 #### [facility] [address] [place], [address] Platelet mean volume (Bld) [Entitic vol] 10.7 fL Normal 6.2-12.0 [facility] Comment on above: Order Comment: 303.2 Performed By: #### L 500.2500, L100.0100 #### [facility] [address] [place], [address] Platelets (Bld) [#/Vol] 397 10*3/uL Normal 150-450 [facility] Comment on above: Order Comment: 303.2 Performed By: #### L 500.2500, L100.0100 #### [facility] [address] [place], [address] RBC (Bld) [#/Vol] 3.48 10*6/uL Low 4.2-5.4 [facility] Comment on above: Order Comment: 303.2 Performed By: #### L 500.2500, L100.0100 #### [facility] [address] [place], [address] RDW SD 49.5 fl High 35.1-43.9 [facility] Comment on above: Order Comment: 303.2 Performed By: #### L 500.2500, L100.0100 #### [facility] [address] [place], [address] WBC (Bld) [#/Vol] 18.3 10*3/uL High 4.4-11.0 [facility] Comment on above: Order Comment: 303.2 Performed By: #### L 500.2500, L100.0100 #### [facility] [address] [place], [address] Carbon dioxide measurementOr dered By: Deep Dela Cruz on 07-10-2024 CO2 [Moles/Vol] 28.0 mmol/L 21.0-32.0 [facility] Chloride measurementOrdered By: Deep Dela Cruz on 07-10-2024 Chloride [Moles/Vol] 103 mmol/L 98-107 [facility] Erythrocyte distribution wid th (RBC) [Ratio]Ordered By: Deep Dela Cruz on 07-10-2024 Erythrocyte distribution width (RBC) [Entitic vol] 49.5 fL High 35.1-43.9 [facility] Erythrocyte distribution wid th ratioOrdered By: Deep Dela Cruz on 07-10-2024 Erythrocyte distribution width (RBC) [Ratio] 14.9 % High 11.6-14.6 [facility] Erythrocyte distribution wid th standard deviationOrdered By: Deep Dela Cruz on 07-10-2024 Erythrocyte distribution width (RBC) [Ratio] 49.5 fl High 35.1-43.9 [facility] Estimated glomerular filtrat ion rate (GFR) AmericanOrdered By: Deep Dela Cruz on 07-10-2024 Estimated GFR (MDRD) Amer 175 mL/min >60 [facility] Comment on above: GFR Calc Glomerular filtration rate ( GFR) estimationOrdered By: Deep Dela Cruz on 07-10-2024 Estimated GFR (MDRD) Non-Af Amer 145 mL/min >60 [facility] Comment on above: Non- GFR Calc GFR/1.73 sq M.predicted among non-blacks MDRD (S/P/Bld) [Vol rate/Area] 145 mL/min/{1.73_m2} >60 [facility] Comment on above: Non- GFR Calc Glucose measurementOrdered B y: Deep Dela Cruz on 07-10-2024 Glucose [Mass/Vol] 103 mg/dL 74-106 [facility] Comment on above: Fasting Glucose resu lt from 100 to 125 mg/dL suggests IMPAIRED HOMEOSTASIS per A.D.A. criteria. Hematocrit Auto (Bld) [Volum e fraction]Ordered By: Deep Dela Cruz on 07-10-2024 Hematocrit (Bld) [Volume fraction] 31.3 % Low 37-47 [facility] Hemoglobin measurementOrdere d By: Deep Dela Cruz on 07-10-2024 Hemoglobin (Bld) [Mass/Vol] 10.0 g/dL Low 12.0-15.0 [facility] MCV (mean corpuscular volume ) determinationOrdered By: Deep Dela Cruz on 07-10-2024 MCV (RBC) [Entitic vol] 89.9 fL 81-99 [facility] Mean corpuscular hemoglobin (MCH) determinationOrdered By: Deep Dela Cruz on 07-10-2024 MCH (RBC) [Entitic mass] 28.7 pg 27.0-32.0 [facility] Mean corpuscular hemoglobin concentration (MCHC) determinationOrdered By: Deep Dela Cruz on 07-10-2024 MCHC (RBC) [Mass/Vol] 31.9 g/dL Low 32-36 [facility] Mean platelet volume determi nationOrdered By: Deep Dela Cruz on 07-10-2024 Platelet mean volume (Bld) [Entitic vol] 10.7 fL 6.2-12.0 [facility] Platelet countOrdered By: Fried on 07-10-2024 Platelets (Bld) [#/Vol] 397 10*3/uL 150-450 [facility] Potassium measurementOrdered By: Deep Dela Cruz on 07-10-2024 Potassium [Moles/Vol] 3.7 mmol/L 3.5-5.1 [facility] RBC Auto (Bld) [#/Vol]Ordere d By: Deep Dela Cruz on 07-10-2024 RBC (Bld) [#/Vol] 3.48 10*6/uL Low 4.2-5.4 [facility] Serum anion gap measurementO rdered By: Deep Dela Cruz on 07-10-2024 Anion gap [Moles/Vol] 6 mmol/L 5-15 [facility] Serum or plasma calcium jessi urement (mass/volume)Ordered By: Deep Dela Cruz on 07-10-2024 Calcium [Mass/Vol] 8.6 mg/dL 8.5-10.1 [facility] Serum or plasma creatinine m easurement (mass/volume)Ordered By: Deep Dela Cruz on 07-10-2024 Creatinine [Mass/Vol] 0.44 mg/dL Low 0.55-1.02 [facility] Comment on above: The validity of the calculated GFR & GFRAA in patients over 70 years has not been determined. Clinical correlation is essential. Serum or plasma urea nitroge n measurement (mass/volume)Ordered By: Deep Dela Cruz on 07-10-2024 Urea nitrogen [Mass/Vol] 19 mg/dL High 7-18 [facility] Sodium levelOrdered By: Deep Dela Cruz on 07-10-2024 Sodium [Moles/Vol] 137 mmol/L 136-145 [facility] White blood cell (WBC) count Ordered By: Deep Dela Cruz on 07-10-2024 WBC (Bld) [#/Vol] 18.3 10*3/uL High 4.4-11.0 [facility] Absolute lymphocyte countOrd ered By: Deep Dela Cruz on 06-20-2024 Lymphocytes Auto (Unsp spec) [#/Vol] 1.17 10*3/uL 0.83-4.51 [facility] Absolute neutrophil countOrd ered By: Deep Dela Cruz on 06-20-2024 Neutrophils (Bld) [#/Vol] 5.5 10*3/uL 2.0-7.7 [facility] Albumin to globulin ratioOrd ered By: Deep Dela Cruz on 06-20-2024 Albumin/Globulin [Mass ratio] 0.5 {ratio} Low 0.9-2.4 [facility] Automated lymphocyte count a s percentage of total leukocytesOrdered By: Deep Dela Cruz on 06-20-2024 Lymphocytes/100 WBC Auto (Unsp spec) 14.7 % Low 19-41 [facility] Basophil percentageOrdered B y: Deep Dela Cruz on 06-20-2024 Basophils/100 WBC (Bld) 1.1 % High 0-1 [facility] Bilirubin, totalOrdered By: Deep Dela Cruz on 06-20-2024 Bilirubin [Mass/Vol] 0.40 mg/dL 0.20-1.00 [facility] Comment on above: For patients on eltr ombopag therapy, use of Dimension [place]ison TBIL is not recommended. Blood urea nitrogen (BUN)/cr eatinine ratioOrdered By: Deep Dela Cruz on 06-20-2024 Urea nitrogen/Creatinine [Mass ratio] 30.9 mg/mg High 10-20 [facility] CBC W/Diff, Automatedon 06-01 Absolute Lymph 1.17 X10 3/uL Normal 0.83-4.51 [facility] Comment on above: Order Comment: 303.2 Performed By: #### L 500.2500, L100.0100 #### [facility] [address] [place], [address] Absolute Neut 5.5 X10 3/uL Normal 2.0-7.7 [facility] Comment on above: Order Comment: 303.2 Performed By: #### L 500.2500, L100.0100 #### [facility] [address] [place], [address] Basophils/100 WBC (Bld) 1.1 % High 0-1 [facility] Comment on above: Order Comment: 303.2 Performed By: #### L 500.2500, L100.0100 #### [facility] [address] [place], [address] Eosinophils/100 WBC (Bld) 3.0 % Normal 0-5 [facility] Comment on above: Order Comment: 303.2 Performed By: #### L 500.2500, L100.0100 #### [facility] [address] [place], [address] Erythrocyte distribution width (RBC) [Ratio] 15.1 % High 11.6-14.6 [facility] Comment on above: Order Comment: 303.2 Performed By: #### L 500.2500, L100.0100 #### [facility] [address] [place], [address] Hematocrit (Bld) [Volume fraction] 33.9 % Low 37-47 [facility] Comment on above: Order Comment: 303.2 Performed By: #### L 500.2500, L100.0100 #### [facility] [address] [place], [address] Hemoglobin (Bld) [Mass/Vol] 10.5 g/dL Low 12.0-15.0 [facility] Comment on above: Order Comment: 303.2 Performed By: #### L 500.2500, L100.0100 #### [facility] [address] [place], [address] IG% 0.500 Normal 0.0-0.9 [facility] Comment on above: Order Comment: 303.2 Result Comment: IG% - Immature Granulocytes (promyelocytes, myelocytes and metamyelocytes) > 1% indicates that a LEFT SHIFT is Present. Performed By: #### L 500.2500, L100.0100 #### [facility] [address] [place], [address] Lymphocytes/100 WBC (Bld) 14.7 % Low 19-41 [facility] Comment on above: Order Comment: 303.2 Performed By: #### L 500.2500, L100.0100 #### [facility] [address] [place], [address] MCH (RBC) [Entitic mass] 28.8 pg Normal 27.0-32.0 [facility] Comment on above: Order Comment: 303.2 Performed By: #### L 500.2500, L100.0100 #### [facility] [address] [place], [address] MCHC (RBC) [Mass/Vol] 31.0 g/dL Low 32-36 [facility] Comment on above: Order Comment: 303.2 Performed By: #### L 500.2500, L100.0100 #### [facility] [address] [place], [address] MCV (RBC) [Entitic vol] 93.1 fL Normal 81-99 [facility] Comment on above: Order Comment: 303.2 Performed By: #### L 500.2500, L100.0100 #### [facility] [address] [place], [address] Monocytes/100 WBC (Bld) 11.2 % High 0-10 [facility] Comment on above: Order Comment: 303.2 Performed By: #### L 500.2500, L100.0100 #### [facility] [address] [place], [address] Neutrophils/100 WBC (Bld) 69.5 % Normal 47-70 [facility] Comment on above: Order Comment: 303.2 Performed By: #### L 500.2500, L100.0100 #### [facility] [address] [place], [address] Nucleated RBC (Bld) [#/Vol] 0 10*3/uL Normal 0-5 [facility] Comment on above: Order Comment: 303.2 Performed By: #### L 500.2500, L100.0100 #### [facility] [address] [place], [address] Platelet mean volume (Bld) [Entitic vol] 10.3 fL Normal 6.2-12.0 [facility] Comment on above: Order Comment: 303.2 Performed By: #### L 500.2500, L100.0100 #### [facility] [address] [place], [address] Platelets (Bld) [#/Vol] 299 10*3/uL Normal 150-450 [facility] Comment on above: Order Comment: 303.2 Performed By: #### L 500.2500, L100.0100 #### [facility] [address] [place], [address] RBC (Bld) [#/Vol] 3.64 10*6/uL Low 4.2-5.4 [facility] Comment on above: Order Comment: 303.2 Performed By: #### L 500.2500, L100.0100 #### [facility] [address] [place], [address] RDW SD 51.5 fl High 35.1-43.9 [facility] Comment on above: Order Comment: 303.2 Performed By: #### L 500.2500, L100.0100 #### [facility] [address] [place], [address] WBC (Bld) [#/Vol] 8.0 10*3/uL Normal 4.4-11.0 [facility] Comment on above: Order Comment: 303.2 Performed By: #### L 500.2500, L100.0100 #### [facility] [address] [place], [address] CDIFF (PCR)on 06-20-2024 CDIFF Pending [id number] Presumptive Negative *for epidemiolologic???use C. Diff PCR Negative- No toxigenic C. Diff Detected Normal [facility] Comment on above: Performed By: #### L 500.2500, L100.0100 #### [facility] [address] [place], [address] Carbon dioxide measurementOr dered By: Deep Dela Cruz on 06-20-2024 CO2 [Moles/Vol] 24.0 mmol/L 21.0-32.0 [facility] Chloride measurementOrdered By: Deep Dela Cruz on 06-20-2024 Chloride [Moles/Vol] 108 mmol/L High 98-107 [facility] Comprehensive Metabolic Prof ilon 06-20-2024 Albumin [Mass/Vol] 1.9 g/dL Low 3.2-5.0 [facility] Comment on above: Order Comment: 303.2 Performed By: #### L 500.2500, L100.0100 #### [facility] [address] [place], [address] Albumin/Globulin [Mass ratio] 0.5 {ratio} Low 0.9-2.4 [facility] Comment on above: Order Comment: 303.2 Performed By: #### L 500.2500, L100.0100 #### [facility] [address] [place], [address] ALK P 148 U/L High 45-117 [facility] Comment on above: Order Comment: 303.2 Performed By: #### L 500.2500, L100.0100 #### [facility] [address] [place], [address] ALT [Catalytic activity/Vol] 10 U/L Low 13-56 [facility] Comment on above: Order Comment: 303.2 Performed By: #### L 500.2500, L100.0100 #### [facility] [address] [place], [address] AST [Catalytic activity/Vol] 17 U/L Normal 15-37 [facility] Comment on above: Order Comment: 303.2 Performed By: #### L 500.2500, L100.0100 #### [facility] [address] [place], [address] Bilirubin [Mass/Vol] 0.40 mg/dL Normal 0.20-1.00 [facility] Comment on above: Order Comment: 303.2 Result Comment: For patients on eltrombopag therapy, use of Dimension [place]ison TBIL is not recommended. Performed By: #### L 500.2500, L100.0100 #### [facility] [address] [place], [address] BUN/CRE 30.9 RATIO High 10-20 [facility] Comment on above: Order Comment: 303.2 Performed By: #### L 500.2500, L100.0100 #### [facility] [address] [place], [address] CA,Total 8.7 mg/dL Normal 8.5-10.1 [facility] Comment on above: Order Comment: 303.2 Performed By: #### L 500.2500, L100.0100 #### [facility] [address] [place], [address] Chloride [Moles/Vol] 108 mmol/L High 98-107 [facility] Comment on above: Order Comment: 303.2 Performed By: #### L 500.2500, L100.0100 #### [facility] [address] [place], [address] CO2 [Moles/Vol] 24.0 mmol/L Normal 21.0-32.0 [facility] Comment on above: Order Comment: 303.2 Performed By: #### L 500.2500, L100.0100 #### [facility] [address] [place], [address] Creatinine [Mass/Vol] 0.42 mg/dL Low 0.55-1.02 [facility] Comment on above: Order Comment: 303.2 Result Comment: The validity of the calculated GFR GFRAA in patients over 70 years has not been determined. Clinical correlation is essential. Performed By: #### L 500.2500, L100.0100 #### [facility] [address] [place], [address] EST GFR - AA 185 mL/min Normal >60 [facility] Comment on above: Order Comment: 303.2 Result Comment: Afri can [place] GFR Calc Performed By: #### L 500.2500, L100.0100 #### [facility] [address] [place], [address] GAP 8 Normal 5-15 [facility] Comment on above: Order Comment: 303.2 Performed By: #### L 500.2500, L100.0100 #### [facility] [address] [place], [address] GFR/1.73 sq M.predicted among non-blacks MDRD (S/P/Bld) [Vol rate/Area] 153 mL/min/{1.73_m2} Normal >60 [facility] Comment on above: Order Comment: 303.2 Result Comment: Non- GFR Calc Performed By: #### L 500.2500, L100.0100 #### [facility] [address] [place], [address] Globulin (S) [Mass/Vol] 4.1 g/dL Normal 2.2-4.2 [facility] Comment on above: Order Comment: 303.2 Performed By: #### L 500.2500, L100.0100 #### [facility] [address] [place], [address] Glucose [Mass/Vol] 104 mg/dL Normal 74-106 [facility] Comment on above: Order Comment: 303.2 Result Comment: Fast ing Glucose result from 100 to 125 mg/dL suggests IMPAIRED HOMEOSTASIS per A.D.A. criteria. Performed By: #### L 500.2500, L100.0100 #### [facility] [address] [place], [address] Potassium [Moles/Vol] 3.8 mmol/L Normal 3.5-5.1 [facility] Comment on above: Order Comment: 303.2 Performed By: #### L 500.2500, L100.0100 #### [facility] [address] [place], [address] Sodium [Moles/Vol] 139 mmol/L Normal 136-145 [facility] Comment on above: Order Comment: 303.2 Performed By: #### L 500.2500, L100.0100 #### [facility] [address] [place], [address] T PROT 6.0 g/dL Low 6.4-8.2 [facility] Comment on above: Order Comment: 303.2 Performed By: #### L 500.2500, L100.0100 #### [facility] [address] [place], [address] Urea nitrogen [Mass/Vol] 13 mg/dL Normal 7-18 [facility] Comment on above: Order Comment: 303.2 Performed By: #### L 500.2500, L100.0100 #### [facility] [address] [place], [address] Eosinophil percentageOrdered By: Deep Dela Cruz on 06-20-2024 Eosinophils/100 WBC (Bld) 3.0 % 0-5 [facility] Erythrocyte distribution wid th (RBC) [Ratio]Ordered By: Deep Dela Cruz on 06-20-2024 Erythrocyte distribution width (RBC) [Entitic vol] 51.5 fL High 35.1-43.9 [facility] Erythrocyte distribution wid th ratioOrdered By: Deep Dela Cruz on 06-20-2024 Erythrocyte distribution width (RBC) [Ratio] 15.1 % High 11.6-14.6 [facility] Erythrocyte distribution wid th standard deviationOrdered By: Deep Dela Cruz on 06-20-2024 Erythrocyte distribution width (RBC) [Ratio] 51.5 fl High 35.1-43.9 [facility] Estimated glomerular filtrat ion rate (GFR) AmericanOrdered By: Deep Dela Cruz on 06-20-2024 Estimated GFR (MDRD) Amer 185 mL/min >60 [facility] Comment on above: GFR Calc Glomerular filtration rate ( GFR) estimationOrdered By: Deep Dela Cruz on 06-20-2024 Estimated GFR (MDRD) Non-Af Amer 153 mL/min >60 [facility] Comment on above: Non- GFR Calc GFR/1.73 sq M.predicted among non-blacks MDRD (S/P/Bld) [Vol rate/Area] 153 mL/min/{1.73_m2} >60 [facility] Comment on above: Non- GFR Calc Glucose measurementOrdered B y: Deep Dela Cruz on 06-20-2024 Glucose [Mass/Vol] 104 mg/dL 74-106 [facility] Comment on above: Fasting Glucose resu lt from 100 to 125 mg/dL suggests IMPAIRED HOMEOSTASIS per A.D.A. criteria. Hematocrit Auto (Bld) [Volum e fraction]Ordered By: Deep Dela Cruz on 06-20-2024 Hematocrit (Bld) [Volume fraction] 33.9 % Low 37-47 [facility] Hemoglobin measurementOrdere d By: Deep Dela Cruz on 06-20-2024 Hemoglobin (Bld) [Mass/Vol] 10.5 g/dL Low 12.0-15.0 [facility] Immature granulocytes/100 WB C Auto (Bld)Ordered By: Deep Dela Cruz on 06-20-2024 Immature granulocytes/100 WBC (Bld) 0.500 % 0.0-0.9 [facility] Comment on above: IG% - Immature Granu locytes (promyelocytes, myelocytes and metamyelocytes) > 1% indicates that a LEFT SHIFT is Present. Laboratory - Chemistry and C hemistry - challengeOrdered By: Deep Dela Cruz on 06-20-2024 AST [Catalytic activity/Vol] 17 U/L 15-37 [facility] Lymphocytes Auto (Unsp spec) [#/Vol]Ordered By: Deep Dela Cruz on 06-20-2024 Lymphocytes (Bld) [#/Vol] 1.17 10*3/uL 0.83-4.51 [facility] Lymphocytes/100 WBC Auto (Un sp spec)Ordered By: Deep Dela Cruz on 06-20-2024 Lymphocytes/100 WBC (Bld) 14.7 % Low 19-41 [facility] MCV (mean corpuscular volume ) determinationOrdered By: Deep Dela Cruz on 06-20-2024 MCV (RBC) [Entitic vol] 93.1 fL 81-99 [facility] Mean corpuscular hemoglobin (MCH) determinationOrdered By: Deep Dela Cruz on 06-20-2024 MCH (RBC) [Entitic mass] 28.8 pg 27.0-32.0 [facility] Mean corpuscular hemoglobin concentration (MCHC) determinationOrdered By: Deep Dela Cruz on 06-20-2024 MCHC (RBC) [Mass/Vol] 31.0 g/dL Low 32-36 [facility] Mean platelet volume determi nationOrdered By: Deep Dela Cruz on 06-20-2024 Platelet mean volume (Bld) [Entitic vol] 10.3 fL 6.2-12.0 [facility] Monocyte percentageOrdered B y: Deep Dela Cruz on 06-20-2024 Monocytes/100 WBC (Bld) 11.2 % High 0-10 [facility] Neutrophil percentageOrdered By: Deep Dela Cruz on 06-20-2024 Neutrophils/100 WBC (Bld) 69.5 % 47-70 [facility] Nucleated red blood cell per centageOrdered By: Deep Dela Cruz on 06-20-2024 Nucleated RBC/100 WBC (Bld) [Ratio] 0 % 0-5 [facility] Platelet countOrdered By: Fried on 06-20-2024 Platelets (Bld) [#/Vol] 299 10*3/uL 150-450 [facility] Potassium measurementOrdered By: Deep Dela Cruz on 06-20-2024 Potassium [Moles/Vol] 3.8 mmol/L 3.5-5.1 [facility] RBC Auto (Bld) [#/Vol]Ordere d By: Deep Dela Cruz on 06-20-2024 RBC (Bld) [#/Vol] 3.64 10*6/uL Low 4.2-5.4 [facility] Serum anion gap measurementO rdered By: Deep Dela Cruz on 06-20-2024 Anion gap [Moles/Vol] 8 mmol/L 5-15 [facility] Serum globulin measurementOr dered By: Deep Dela Cruz on 06-20-2024 Globulin (S) [Mass/Vol] 4.1 g/dL 2.2-4.2 [facility] Serum or plasma alanine wilson otransferase (ALT) measurementOrdered By: Deep Dela Cruz on 06-20-2024 ALT [Catalytic activity/Vol] 10 U/L Low 13-56 [facility] Serum or plasma albumin jessi urement (mass/volume)Ordered By: Deep Dela Cruz on 06-20-2024 Albumin [Mass/Vol] 1.9 g/dL Low 3.2-5.0 [facility] Serum or plasma alkaline jero sphatase measurementOrdered By: Deep Dela Cruz on 06-20-2024 ALP [Catalytic activity/Vol] 148 U/L High 45-117 [facility] Serum or plasma calcium jessi urement (mass/volume)Ordered By: Deep Dela Cruz on 06-20-2024 Calcium [Mass/Vol] 8.7 mg/dL 8.5-10.1 [facility] Serum or plasma creatinine m easurement (mass/volume)Ordered By: Deep Dela Cruz on 06-20-2024 Creatinine [Mass/Vol] 0.42 mg/dL Low 0.55-1.02 [facility] Comment on above: The validity of the calculated GFR & GFRAA in patients over 70 years has not been determined. Clinical correlation is essential. Serum or plasma urea nitroge n measurement (mass/volume)Ordered By: Deep Dela Cruz on 06-20-2024 Urea nitrogen [Mass/Vol] 13 mg/dL 7-18 [facility] Sodium levelOrdered By: Deep Dela Cruz on 06-20-2024 Sodium [Moles/Vol] 139 mmol/L 136-145 [facility] Total proteinOrdered By: Janet Dela Cruz on 06-20-2024 Protein [Mass/Vol] 6.0 g/dL Low 6.4-8.2 [facility] White blood cell (WBC) count Ordered By: Deep Dela Cruz on 06-20-2024 WBC (Bld) [#/Vol] 8.0 10*3/uL 4.4-11.0 [facility] C. difficile DNA ANKIT+probe Q l (Unsp spec)Ordered By: Deep Dela Cruz on 06-19-2024 Clostridioides difficile (PCR) [facility] Clostridium difficile detect ion by polymerase chain reactionOrdered By: Deep Dela Cruz on 06-19-2024 C. difficile DNA ANKIT+probe Ql (Unsp spec) [facility] Urine Cultureon 06-16-2024 [facility] Pending Klebsiella pneumoniae [place] Count >100,000 Proteus mirabilis Proteus mirabilis * This is an amended result. * A prior result that was reported as final has been changed. 06/16/2419 by MARGIE Klebsiella pneumoniae: REACTION Ampicillin Islt VERN >=32 R Ampicillin+Sulbac Islt VERN 4 Cefepime Islt VERN <=0.12 S cefTRIAXone Islt VERN <=0.25 S Ciprofloxacin Islt VERN <=0.06 S B-Lactamase Extended Susc Islt NEG Gentamicin Islt VERN <=1 S levoFLOXacin Islt VERN <=0.12 S Meropenem Islt VERN <=0.25 S Nitrofurantoin Islt VERN 64 I Pip+Tazo Islt VERN <=4 S TMP SMX Islt VERN <=20 S Klebsiella pneumoniae: REACTION Amikacin Islt VERN <=1 S Doxycycline Islt VERN 1 Eravacycline Islt VERN <=0.12 S Imipenem Islt VERN <=0.25 S Tobramycin Islt VERN <=1 S Minocycline Islt VERN 2 S Proteus mirabilis: REACTION Ampicillin Islt VERN >=32 R Ampicillin+Sulbac Islt VERN 4 Cefepime Islt VERN <=0.12 S cefTRIAXone Islt VERN <=0.25 S Ciprofloxacin Islt VERN >=4 R Gentamicin Islt VERN <=1 S levoFLOXacin Islt VERN >=8 R Meropenem Islt VERN 1 S Nitrofurantoin Islt VERN 128 R Pip+Tazo Islt VERN <=4 S TMP SMX Islt VERN >=320 R Proteus mirabilis: REACTION Amikacin Islt VERN 4 S Doxycycline Islt VERN >=16 Tobramycin Islt VERN <=1 S Minocycline Islt VERN >=32 R Normal [facility] Comment on above: Performed By: #### L 500.2500, L100.0100 #### [facility] [place], [address] Bilirubin Test strip Ql (U)O rdered By: Deep Dela Cruz on 06-09-2024 Bilirubin Ql (U) Negative Negative [facility] Epithelial cells.squamous LM Ql (Urine sed)Ordered By: Deep Dela Cruz on 06-09-2024 Epithelial cells.squamous LM.HPF (Urine sed) [#/Area] 0 /[HPF] 5-10 [facility] Glucose Ql (U)Ordered By: Fried on 06-09-2024 Urine Glucose (UA) Normal mg/dl Normal [facility] Ketones Test strip Ql (U)Ord ered By: Deep Dela Cruz on 06-09-2024 Ketones Ql (U) Negative Negative [facility] Microscopic analysis of urin e for red blood cells (RBC)Ordered By: Deep Dela Cruz on 06-09-2024 Urine RBC 0 SEEN /hpf 0-5 [facility] Mucus LM Ql (Urine sed)Order ed By: Deep Dela Cruz on 06-09-2024 Mucus Ql (Urine sed) 0 SEEN /hpf [facility] Nitrite Test strip Ql (U)Ord ered By: Deep Dela Cruz on 06-09-2024 Nitrite Ql (U) Positive High Negative [facility] Protein Test strip Ql (U)Ord ered By: Deep Dela Cruz on 06-09-2024 Protein Ql (U) 100 mg/dl High Negative [facility] Urinalysis, Completeon 06-09 BACTERIA 2+ /hpf Normal None Seen [facility] Comment on above: Order Comment: VANITA TER SPECIMEN Performed By: #### L 500.2500, L100.0100 #### [facility] [address] [place], [address] WBC 10-25 SEEN Normal 0-5 [facility] Comment on above: Order Comment: VANITA TER SPECIMEN Performed By: #### L 500.2500, L100.0100 #### [facility] [address] [place], [address] EPI,SQUAMOUS 0 SEEN Normal 5-10 [facility] Comment on above: Order Comment: VANITA TER SPECIMEN Performed By: #### L 500.2500, L100.0100 #### [facility] [address] [place], [address] Mucus Ql (Urine sed) 0 SEEN Normal [facility] Comment on above: Order Comment: VANITA TER SPECIMEN Performed By: #### L 500.2500, L100.0100 #### [facility] [address] [place], [address] RBC 0 SEEN Normal 0-5 [facility] Comment on above: Order Comment: VANITA TER SPECIMEN Performed By: #### L 500.2500, L100.0100 #### [facility] [address] [place], [address] Urine blood detectionOrdered By: Deep Dela Cruz on 06-09-2024 Urine Occult Blood 150 /ul High Negative [facility] Urine clarityOrdered By: Janet Dela Cruz on 06-09-2024 Clarity (U) Turbid Clear [facility] Urine color determinationOrd ered By: Deep Dela Cruz on 06-09-2024 Color (U) Yellow Yellow [facility] Urine cultureOrdered By: Janet Dela Cruz on 06-09-2024 Bacteria identified Cx Nom (U) Klebsiella pneumoniae Abnormal [facility] Bacteria identified Cx Nom (U) Proteus mirabilis Abnormal [facility] Urine leukocyte esterase det ection by dipstickOrdered By: Deep Dela Cruz on 06-09-2024 Leukocyte esterase Test strip Ql (U) 500 /ul High Negative [facility] Urine pHOrdered By: Deep hayes on 06-09-2024 pH (U) 8.0 [pH] 5.0 - 8.0 [facility] Urine sediment bacteria coun t by microscopy (number/high power field)Ordered By: Deep Dela Cruz on 06-09-2024 Bacteria LM.HPF (Urine sed) [#/Area] 2 /[HPF] None Seen [facility] Urine specific gravity measu rementOrdered By: Deep Dela Cruz on 06-09-2024 Specific gravity (U) [Rel density] 1.010 1.002-1.030 [facility] Urobilinogen Ql (U)Ordered B y: Deep Dela Cruz on 06-09-2024 Urine Urobilinogen Normal mg/dl Normal [facility] White blood cell countOrdere d By: Deep Dela Cruz on 06-09-2024 Urine WBC 10-25 SEEN /hpf 0-5 [facility] Albumin to globulin ratioOrd ered By: Deep Dela Cruz on 06-05-2024 Albumin/Globulin [Mass ratio] 0.5 {ratio} Low 0.9-2.4 [facility] Bilirubin, totalOrdered By: Deep Dela Cruz on 06-05-2024 Bilirubin [Mass/Vol] 0.60 mg/dL 0.20-1.00 [facility] Comment on above: For patients on eltr ombopag therapy, use of Dimension Addison TBIL is not recommended. Blood urea nitrogen (BUN)/cr eatinine ratioOrdered By: Deep Dela Cruz on 06-05-2024 Urea nitrogen/Creatinine [Mass ratio] 26.1 mg/mg High 10-20 [facility] CBC-Complete Blood Cnt No Di ffon 06-05-2024 Erythrocyte distribution width (RBC) [Ratio] 15.0 % High 11.6-14.6 [facility] Comment on above: Order Comment: 303-2 Performed By: #### L 500.2500, L100.0100 #### [facility] [address] [place], [address] Hematocrit (Bld) [Volume fraction] 38.0 % Normal 37-47 [facility] Comment on above: Order Comment: 303-2 Performed By: #### L 500.2500, L100.0100 #### [facility] [address] [place], [address] Hemoglobin (Bld) [Mass/Vol] 11.3 g/dL Low 12.0-15.0 [facility] Comment on above: Order Comment: 303-2 Performed By: #### L 500.2500, L100.0100 #### [facility] [address] [place], [address] MCH (RBC) [Entitic mass] 29.3 pg Normal 27.0-32.0 [facility] Comment on above: Order Comment: 303-2 Performed By: #### L 500.2500, L100.0100 #### [facility] [address] [place], [address] MCHC (RBC) [Mass/Vol] 29.7 g/dL Low 32-36 [facility] Comment on above: Order Comment: 303-2 Performed By: #### L 500.2500, L100.0100 #### [facility] [address] [place], [address] MCV (RBC) [Entitic vol] 98.4 fL Normal 81-99 [facility] Comment on above: Order Comment: 303-2 Performed By: #### L 500.2500, L100.0100 #### [facility] [address] [place], [address] Platelet mean volume (Bld) [Entitic vol] 10.7 fL Normal 6.2-12.0 [facility] Comment on above: Order Comment: 303-2 Performed By: #### L 500.2500, L100.0100 #### [facility] [address] [place], [address] Platelets (Bld) [#/Vol] 401 10*3/uL Normal 150-450 [facility] Comment on above: Order Comment: 303-2 Performed By: #### L 500.2500, L100.0100 #### [facility] [address] [place], [address] RBC (Bld) [#/Vol] 3.86 10*6/uL Low 4.2-5.4 [facility] Comment on above: Order Comment: 303-2 Performed By: #### L 500.2500, L100.0100 #### [facility] [address] [place], [address] RDW SD 54.3 fl High 35.1-43.9 [facility] Comment on above: Order Comment: 303-2 Performed By: #### L 500.2500, L100.0100 #### [facility] [address] [place], [address] WBC (Bld) [#/Vol] 4.8 10*3/uL Normal 4.4-11.0 [facility] Comment on above: Order Comment: 303-2 Performed By: #### L 500.2500, L100.0100 #### [facility] [address] [place], [address] Carbon dioxide measurementOr dered By: Deep Dela Cruz on 06-05-2024 CO2 [Moles/Vol] 25.0 mmol/L 21.0-32.0 [facility] Chloride measurementOrdered By: Deep Dela Cruz on 06-05-2024 Chloride [Moles/Vol] 105 mmol/L 98-107 [facility] Comprehensive Metabolic Prof ilon 06-05-2024 Albumin [Mass/Vol] 2.1 g/dL Low 3.2-5.0 [facility] Comment on above: Order Comment: 303-2 Performed By: #### L 500.2500, L100.0100 #### [facility] [address] [place], [address] Albumin/Globulin [Mass ratio] 0.5 {ratio} Low 0.9-2.4 [facility] Comment on above: Order Comment: 303-2 Performed By: #### L 500.2500, L100.0100 #### [facility] [address] [place], [address] ALK P 155 U/L High 45-117 [facility] Comment on above: Order Comment: 303-2 Performed By: #### L 500.2500, L100.0100 #### [facility] [address] [place], [address] ALT [Catalytic activity/Vol] 7 U/L Low 13-56 [facility] Comment on above: Order Comment: 303-2 Performed By: #### L 500.2500, L100.0100 #### [facility] [address] [place], [address] AST [Catalytic activity/Vol] 13 U/L Low 15-37 [facility] Comment on above: Order Comment: 303-2 Performed By: #### L 500.2500, L100.0100 #### [facility] [address] [place], [address] Bilirubin [Mass/Vol] 0.60 mg/dL Normal 0.20-1.00 [facility] Comment on above: Order Comment: 303-2 Result Comment: For patients on eltrombopag therapy, use of Dimension [place]ison TBIL is not recommended. Performed By: #### L 500.2500, L100.0100 #### [facility] [address] [place], [address] BUN/CRE 26.1 RATIO High 10-20 [facility] Comment on above: Order Comment: 303-2 Performed By: #### L 500.2500, L100.0100 #### [facility] [address] [place], [address] CA,Total 8.9 mg/dL Normal 8.5-10.1 [facility] Comment on above: Order Comment: 303-2 Performed By: #### L 500.2500, L100.0100 #### [facility] [address] [place], [address] Chloride [Moles/Vol] 105 mmol/L Normal 98-107 [facility] Comment on above: Order Comment: 303-2 Performed By: #### L 500.2500, L100.0100 #### [facility] [address] [place], [address] CO2 [Moles/Vol] 25.0 mmol/L Normal 21.0-32.0 [facility] Comment on above: Order Comment: 303-2 Performed By: #### L 500.2500, L100.0100 #### [facility] [address] [place], [address] Creatinine [Mass/Vol] 0.54 mg/dL Low 0.55-1.02 [facility] Comment on above: Order Comment: 303-2 Result Comment: The validity of the calculated GFR GFRAA in patients over 70 years has not been determined. Clinical correlation is essential. Performed By: #### L 500.2500, L100.0100 #### [facility] [address] [place], [address] EST GFR - AA 140 mL/min Normal >60 [facility] Comment on above: Order Comment: 303-2 Result Comment: Afri can [place]ian GFR Calc Performed By: #### L 500.2500, L100.0100 #### [facility] [address] [place], [address] GAP 7 Normal 5-15 [facility] Comment on above: Order Comment: 303-2 Performed By: #### L 500.2500, L100.0100 #### [facility] [address] [place], [address] GFR/1.73 sq M.predicted among non-blacks MDRD (S/P/Bld) [Vol rate/Area] 116 mL/min/{1.73_m2} Normal >60 [facility] Comment on above: Order Comment: 303-2 Result Comment: Non- GFR Calc Performed By: #### L 500.2500, L100.0100 #### [facility] [address] [place], [address] Globulin (S) [Mass/Vol] 4.4 g/dL High 2.2-4.2 [facility] Comment on above: Order Comment: 303-2 Performed By: #### L 500.2500, L100.0100 #### [facility] [address] [place], [address] Glucose [Mass/Vol] 98 mg/dL Normal 74-106 [facility] Comment on above: Order Comment: 303-2 Performed By: #### L 500.2500, L100.0100 #### [facility] [address] [place], [address] Potassium [Moles/Vol] 3.8 mmol/L Normal 3.5-5.1 [facility] Comment on above: Order Comment: 303-2 Performed By: #### L 500.2500, L100.0100 #### [facility] [address] [place], [address] Sodium [Moles/Vol] 137 mmol/L Normal 136-145 [facility] Comment on above: Order Comment: 303-2 Performed By: #### L 500.2500, L100.0100 #### [facility] [address] [place], [address] T PROT 6.5 g/dL Normal 6.4-8.2 [facility] Comment on above: Order Comment: 303-2 Performed By: #### L 500.2500, L100.0100 #### [facility] [address] [place], [address] Urea nitrogen [Mass/Vol] 14 mg/dL Normal 7-18 [facility] Comment on above: Order Comment: 303-2 Performed By: #### L 500.2500, L100.0100 #### [facility] [address] [place], [address] Erythrocyte distribution wid th (RBC) [Ratio]Ordered By: Deep Dela Cruz on 06-05-2024 Erythrocyte distribution width (RBC) [Entitic vol] 54.3 fL High 35.1-43.9 [facility] Erythrocyte distribution wid th ratioOrdered By: Deep Dela Cruz on 06-05-2024 Erythrocyte distribution width (RBC) [Ratio] 15.0 % High 11.6-14.6 [facility] Estimated glomerular filtrat ion rate (GFR) AmericanOrdered By: Deep Dela Cruz on 06-05-2024 Estimated GFR (MDRD) Amer 140 mL/min >60 [facility] Comment on above: GFR Calc Glomerular filtration rate ( GFR) estimationOrdered By: Deep Dela Cruz on 06-05-2024 Estimated GFR (MDRD) Non-Af Amer 116 mL/min >60 [facility] Comment on above: Non- GFR Calc Glucose measurementOrdered B y: Deep Dela Cruz on 06-05-2024 Glucose [Mass/Vol] 98 mg/dL 74-106 [facility] Hematocrit Auto (Bld) [Volum e fraction]Ordered By: Deep Dela Cruz on 06-05-2024 Hematocrit (Bld) [Volume fraction] 38.0 % 37-47 [facility] Hemoglobin measurementOrdere d By: Deep Dela Cruz on 06-05-2024 Hemoglobin (Bld) [Mass/Vol] 11.3 g/dL Low 12.0-15.0 [facility] - Chemistry and C hemistry - challengeOrdered By: Deep Dela Cruz on 06-05-2024 AST [Catalytic activity/Vol] 13 U/L Low 15-37 [facility] MCV (mean corpuscular volume ) determinationOrdered By: Deep Dela Cruz on 06-05-2024 MCV (RBC) [Entitic vol] 98.4 fL 81-99 [facility] Mean corpuscular hemoglobin (MCH) determinationOrdered By: Deep Dela Cruz on 06-05-2024 MCH (RBC) [Entitic mass] 29.3 pg 27.0-32.0 [facility] Mean corpuscular hemoglobin concentration (MCHC) determinationOrdered By: Deep Dela Cruz on 06-05-2024 MCHC (RBC) [Mass/Vol] 29.7 g/dL Low 32-36 [facility] Mean platelet volume determi nationOrdered By: Deep Dela Cruz on 06-05-2024 Platelet mean volume (Bld) [Entitic vol] 10.7 fL 6.2-12.0 [facility] Platelet countOrdered By: Fried on 06-05-2024 Platelets (Bld) [#/Vol] 401 10*3/uL 150-450 [facility] Potassium measurementOrdered By: Deep Dela Cruz on 06-05-2024 Potassium [Moles/Vol] 3.8 mmol/L 3.5-5.1 [facility] RBC Auto (Bld) [#/Vol]Ordere d By: Deep Dela Cruz on 06-05-2024 RBC (Bld) [#/Vol] 3.86 10*6/uL Low 4.2-5.4 [facility] Serum anion gap measurementO rdered By: Deep Dela Cruz on 06-05-2024 Anion gap [Moles/Vol] 7 mmol/L 5-15 [facility] Serum globulin measurementOr dered By: Deep Dela Cruz on 06-05-2024 Globulin (S) [Mass/Vol] 4.4 g/dL High 2.2-4.2 [facility] Serum or plasma alanine wilson otransferase (ALT) measurementOrdered By: Deep Dela Cruz on 06-05-2024 ALT [Catalytic activity/Vol] 7 U/L Low 13-56 [facility] Serum or plasma albumin jessi urement (mass/volume)Ordered By: Deep Dela Cruz on 06-05-2024 Albumin [Mass/Vol] 2.1 g/dL Low 3.2-5.0 [facility] Serum or plasma alkaline jero sphatase measurementOrdered By: Deep Dela Cruz on 06-05-2024 ALP [Catalytic activity/Vol] 155 U/L High 45-117 [facility] Serum or plasma calcium jessi urement (mass/volume)Ordered By: Deep Dela Cruz on 06-05-2024 Calcium [Mass/Vol] 8.9 mg/dL 8.5-10.1 [facility] Serum or plasma creatinine m easurement (mass/volume)Ordered By: Deep Dela Cruz on 06-05-2024 Creatinine [Mass/Vol] 0.54 mg/dL Low 0.55-1.02 [facility] Comment on above: The validity of the calculated GFR & GFRAA in patients over 70 years has not been determined. Clinical correlation is essential. Serum or plasma urea nitroge n measurement (mass/volume)Ordered By: Deep Dela Cruz on 06-05-2024 Urea nitrogen [Mass/Vol] 14 mg/dL 7-18 [facility] Sodium levelOrdered By: Deep Dela Cruz on 06-05-2024 Sodium [Moles/Vol] 137 mmol/L 136-145 [facility] Total proteinOrdered By: Janet Dela Cruz on 06-05-2024 Protein [Mass/Vol] 6.5 g/dL 6.4-8.2 [facility] White blood cell (WBC) count Ordered By: Deep Dela Cruz on 06-05-2024 WBC (Bld) [#/Vol] 4.8 10*3/uL 4.4-11.0 [facility] Basic Metabolic Profile (BMP )on 05-29-2024 BUN/CRE 30.3 RATIO High 10-20 [facility] Comment on above: Order Comment: 303.2 Performed By: #### L 300.4310, L300.3900 #### [facility] [address] [place], [address] CA,Total 8.6 mg/dL Normal 8.5-10.1 [facility] Comment on above: Order Comment: 303.2 Performed By: #### L 300.4310, L300.3900 #### [facility] [address] [place], [address] Chloride [Moles/Vol] 104 mmol/L Normal 98-107 [facility] Comment on above: Order Comment: 303.2 Performed By: #### L 300.4310, L300.3900 #### [facility] [address] [place], [address] CO2 [Moles/Vol] 26.0 mmol/L Normal 21.0-32.0 [facility] Comment on above: Order Comment: 303.2 Performed By: #### L 300.4310, L300.3900 #### [facility] [address] [place], [address] Creatinine [Mass/Vol] 0.46 mg/dL Low 0.55-1.02 [facility] Comment on above: Order Comment: 303.2 Result Comment: The validity of the calculated GFR GFRAA in patients over 70 years has not been determined. Clinical correlation is essential. Performed By: #### L 300.4310, L300.3900 #### [facility] [address] [place], [address] EST GFR - AA 166 mL/min Normal >60 [facility] Comment on above: Order Comment: 303.2 Result Comment: Afri can [place] GFR Calc Performed By: #### L 300.4310, L300.3900 #### [facility] [address] [place], [address] GAP 7 Normal 5-15 [facility] Comment on above: Order Comment: 303.2 Performed By: #### L 300.4310, L300.3900 #### [facility] [address] [place], [address] GFR/1.73 sq M.predicted among non-blacks MDRD (S/P/Bld) [Vol rate/Area] 137 mL/min/{1.73_m2} Normal >60 [facility] Comment on above: Order Comment: 303.2 Result Comment: Non- GFR Calc Performed By: #### L 300.4310, L300.3900 #### [facility] [address] [place], [address] Glucose [Mass/Vol] 99 mg/dL Normal 74-106 [facility] Comment on above: Order Comment: 303.2 Performed By: #### L 300.4310, L300.3900 #### [facility] [address] [place], [address] Potassium [Moles/Vol] 4.0 mmol/L Normal 3.5-5.1 [facility] Comment on above: Order Comment: 303.2 Performed By: #### L 300.4310, L300.3900 #### [facility] [address] [place], [address] Sodium [Moles/Vol] 137 mmol/L Normal 136-145 [facility] Comment on above: Order Comment: 303.2 Performed By: #### L 300.4310, L300.3900 #### [facility] [address] [place], [address] Urea nitrogen [Mass/Vol] 14 mg/dL Normal 7-18 [facility] Comment on above: Order Comment: 303.2 Performed By: #### L 300.4310, L300.3900 #### [facility] [address] [place], [address] Blood urea nitrogen (BUN)/cr eatinine ratioOrdered By: Deep Dela Cruz on 05-29-2024 Urea nitrogen/Creatinine [Mass ratio] 30.3 mg/mg High 10-20 [facility] CBC-Complete Blood Cnt No Di ffon 05-29-2024 Erythrocyte distribution width (RBC) [Ratio] 15.8 % High 11.6-14.6 [facility] Comment on above: Order Comment: 303.2 Performed By: #### L 300.4310, L300.3900 #### [facility] [address] [place], [address] Hematocrit (Bld) [Volume fraction] 29.1 % Low 37-47 [facility] Comment on above: Order Comment: 303.2 Performed By: #### L 300.4310, L300.3900 #### [facility] [address] [place], [address] Hemoglobin (Bld) [Mass/Vol] 8.8 g/dL Low 12.0-15.0 [facility] Comment on above: Order Comment: 303.2 Performed By: #### L 300.4310, L300.3900 #### [facility] [address] [place], [address] MCH (RBC) [Entitic mass] 28.8 pg Normal 27.0-32.0 [facility] Comment on above: Order Comment: 303.2 Performed By: #### L 300.4310, L300.3900 #### [facility] [address] [place], [address] MCHC (RBC) [Mass/Vol] 30.2 g/dL Low 32-36 [facility] Comment on above: Order Comment: 303.2 Performed By: #### L 300.4310, L300.3900 #### [facility] [address] [place], [address] MCV (RBC) [Entitic vol] 95.1 fL Normal 81-99 [facility] Comment on above: Order Comment: 303.2 Performed By: #### L 300.4310, L300.3900 #### [facility] [address] [place], [address] Platelet mean volume (Bld) [Entitic vol] 10.2 fL Normal 6.2-12.0 [facility] Comment on above: Order Comment: 303.2 Performed By: #### L 300.4310, L300.3900 #### [facility] [address] [place], [address] Platelets (Bld) [#/Vol] 350 10*3/uL Normal 150-450 [facility] Comment on above: Order Comment: 303.2 Performed By: #### L 300.4310, L300.3900 #### [facility] [address] [place], [address] RBC (Bld) [#/Vol] 3.06 10*6/uL Low 4.2-5.4 [facility] Comment on above: Order Comment: 303.2 Performed By: #### L 300.4310, L300.3900 #### [facility] [address] [place], [address] RDW SD 54.8 fl High 35.1-43.9 [facility] Comment on above: Order Comment: 303.2 Performed By: #### L 300.4310, L300.3900 #### [facility] [address] [place], [address] WBC (Bld) [#/Vol] 6.1 10*3/uL Normal 4.4-11.0 [facility] Comment on above: Order Comment: 303.2 Performed By: #### L 300.4310, L300.3900 #### [facility] [address] [place], [address] Carbon dioxide measurementOr dered By: Deep Dela Cruz on 05-29-2024 CO2 [Moles/Vol] 26.0 mmol/L 21.0-32.0 [facility] Chloride measurementOrdered By: Deep Dela Cruz on 05-29-2024 Chloride [Moles/Vol] 104 mmol/L 98-107 [facility] Erythrocyte distribution wid th (RBC) [Ratio]Ordered By: Deep Dela Cruz on 05-29-2024 Erythrocyte distribution width (RBC) [Entitic vol] 54.8 fL High 35.1-43.9 [facility] Erythrocyte distribution wid th ratioOrdered By: Deep Dela Cruz on 05-29-2024 Erythrocyte distribution width (RBC) [Ratio] 15.8 % High 11.6-14.6 [facility] Estimated glomerular filtrat ion rate (GFR) AmericanOrdered By: Deep Dela Cruz on 05-29-2024 Estimated GFR (MDRD) Amer 166 mL/min >60 [facility] Comment on above: GFR Calc Glomerular filtration rate ( GFR) estimationOrdered By: Deep Dela Cruz on 05-29-2024 Estimated GFR (MDRD) Non-Af Amer 137 mL/min >60 [facility] Comment on above: Non- GFR Calc Glucose measurementOrdered B y: Deep Dela Cruz on 05-29-2024 Glucose [Mass/Vol] 99 mg/dL 74-106 [facility] Hematocrit Auto (Bld) [Volum e fraction]Ordered By: Deep eDla Cruz on 05-29-2024 Hematocrit (Bld) [Volume fraction] 29.1 % Low 37-47 [facility] Hemoglobin measurementOrdere d By: Deep Dela Cruz on 05-29-2024 Hemoglobin (Bld) [Mass/Vol] 8.8 g/dL Low 12.0-15.0 [facility] MCV (mean corpuscular volume ) determinationOrdered By: Deep Dela Cruz on 05-29-2024 MCV (RBC) [Entitic vol] 95.1 fL 81-99 [facility] Mean corpuscular hemoglobin (MCH) determinationOrdered By: Deep Dela Cruz on 05-29-2024 MCH (RBC) [Entitic mass] 28.8 pg 27.0-32.0 [facility] Mean corpuscular hemoglobin concentration (MCHC) determinationOrdered By: Deep Dela Cruz on 05-29-2024 MCHC (RBC) [Mass/Vol] 30.2 g/dL Low 32-36 [facility] Mean platelet volume determi nationOrdered By: Deep Dela Cruz on 05-29-2024 Platelet mean volume (Bld) [Entitic vol] 10.2 fL 6.2-12.0 [facility] Platelet countOrdered By: Fried on 05-29-2024 Platelets (Bld) [#/Vol] 350 10*3/uL 150-450 [facility] Potassium measurementOrdered By: Deep Dela Cruz on 05-29-2024 Potassium [Moles/Vol] 4.0 mmol/L 3.5-5.1 [facility] RBC Auto (Bld) [#/Vol]Ordere d By: Deep Dela Cruz on 05-29-2024 RBC (Bld) [#/Vol] 3.06 10*6/uL Low 4.2-5.4 [facility] Serum anion gap measurementO rdered By: Deep Dela Cruz on 05-29-2024 Anion gap [Moles/Vol] 7 mmol/L 5-15 [facility] Serum or plasma calcium jessi urement (mass/volume)Ordered By: Deep Dela Cruz on 05-29-2024 Calcium [Mass/Vol] 8.6 mg/dL 8.5-10.1 [facility] Serum or plasma creatinine m easurement (mass/volume)Ordered By: Deep Dela Cruz on 05-29-2024 Creatinine [Mass/Vol] 0.46 mg/dL Low 0.55-1.02 [facility] Comment on above: The validity of the calculated GFR & GFRAA in patients over 70 years has not been determined. Clinical correlation is essential. Serum or plasma urea nitroge n measurement (mass/volume)Ordered By: Deep Dela Cruz on 05-29-2024 Urea nitrogen [Mass/Vol] 14 mg/dL 7-18 [facility] Sodium levelOrdered By: Deep Dela Cruz on 05-29-2024 Sodium [Moles/Vol] 137 mmol/L 136-145 [facility] White blood cell (WBC) count Ordered By: Deep Dela Cruz on 05-29-2024 WBC (Bld) [#/Vol] 6.1 10*3/uL 4.4-11.0 [facility] Urine Cultureon 05-26-2024 URC Results called on 05/26/24-1211 by MARGIE to JOSE . Copy of report sent to Infection Control Printer [id number] 05/26/24 1204 MARGIE. Urine Culture ESBL Escherichia coli [place] Count <1000 MARKER ESBL producing OrganismA MARKER ESBL producing OrganismA [place] Count 25,000-50,000 Presumptive Lactobacillus sp. Ampicillin Islt VERN >=32 Ampicillin+Sulbac Islt VERN 4 S Cefepime Islt VERN 16 cefTRIAXone Islt VERN >=64 R Ciprofloxacin Islt VERN >=4 R B-Lactamase Extended Susc Islt POS Gentamicin Islt VERN <=1 S levoFLOXacin Islt VERN >=8 R Meropenem Islt VERN <=0.25 S Nitrofurantoin Islt VERN <=16 S Pip+Tazo Islt VERN <=4 S TMP SMX Islt VERN <=20 S ESBL Escherichia coli: REACTION Amikacin Islt VERN 2 S Doxycycline Islt VERN 2 S Eravacycline Islt VERN <=0.12 Imipenem Islt VERN <=0.25 S Tobramycin Islt VERN <=1 S Minocycline Islt VERN 1 S Normal [facility] Comment on above: Performed By: #### L 500.2500, L100.0100 #### [facility] [address] [place], [place], [id number] Bacteria LM.HPF (Urine sed) [#/Area]Ordered By: Deep Dela Cruz on 05-23-2024 Urine Bacteria RARE /hpf None Seen [facility] Bilirubin Test strip Ql (U)O rdered By: Deep Dela Cruz on 05-23-2024 Bilirubin Ql (U) Negative Negative [facility] Epithelial cells.squamous LM Ql (Urine sed)Ordered By: Deep Dela Cruz on 05-23-2024 Epithelial cells.squamous LM.HPF (Urine sed) [#/Area] 0 /[HPF] 5-10 [facility] Glucose Ql (U)Ordered By: Fried on 05-23-2024 Urine Glucose (UA) Normal mg/dl Normal [facility] Ketones Test strip Ql (U)Ord ered By: Deep Dela Cruz on 05-23-2024 Ketones Ql (U) Negative Negative [facility] Microscopic analysis of urin e for red blood cells (RBC)Ordered By: Deep Dela Cruz on 05-23-2024 Urine RBC 0 SEEN /hpf 0-5 [facility] Mucus LM Ql (Urine sed)Order ed By: Deep Dela Cruz on 05-23-2024 Mucus Ql (Urine sed) 0 SEEN /hpf [facility] Nitrite Test strip Ql (U)Ord ered By: Deep Dela Cruz on 05-23-2024 Nitrite Ql (U) Negative Negative [facility] Protein Test strip Ql (U)Ord ered By: Deep Dela Cruz on 05-23-2024 Protein Ql (U) 15 mg/dl High Negative [facility] Urinalysis, Completeon 05-23 BACTERIA RARE Normal None Seen [facility] Comment on above: Order Comment: SCCAT HETER SPECIMEN Performed By: #### L 500.2500, L100.0100 #### [facility] [address] [place], [address] EPI,SQUAMOUS 0-5 SEEN Normal 5-10 [facility] Comment on above: Order Comment: SCCAT HETER SPECIMEN Performed By: #### L 500.2500, L100.0100 #### [facility] [address] [place], [address] WBC 10-25 SEEN Normal 0-5 [facility] Comment on above: Order Comment: SCCAT HETER SPECIMEN Performed By: #### L 500.2500, L100.0100 #### [facility] [address] [place], [address] Mucus Ql (Urine sed) 0 SEEN Normal [facility] Comment on above: Order Comment: SCCAT HETER SPECIMEN Performed By: #### L 500.2500, L100.0100 #### [facility] [address] [place], [address] RBC 0 SEEN Normal 0-5 [facility] Comment on above: Order Comment: SCCAT HETER SPECIMEN Performed By: #### L 500.2500, L100.0100 #### [facility] [address] [place], [address] Urine blood detectionOrdered By: Deep Dela Cruz on 05-23-2024 Urine Occult Blood Negative Negative [facility] Urine clarityOrdered By: Janet Dela Cruz on 05-23-2024 Clarity (U) Sl. Cloudy Clear [facility] Urine color determinationOrd ered By: Deep Dela Cruz on 05-23-2024 Color (U) Yellow Yellow [facility] Urine leukocyte esterase det ection by dipstickOrdered By: Deep Dela Cruz on 05-23-2024 Leukocyte esterase Test strip Ql (U) 500 /ul High Negative [facility] Urine pHOrdered By: Deep hayes on 05-23-2024 pH (U) 7.0 [pH] 5.0 - 8.0 [facility] Urine specific gravity measu rementOrdered By: Deep Dela Cruz on 05-23-2024 Specific gravity (U) [Rel density] 1.010 1.002-1.030 [facility] Urobilinogen Ql (U)Ordered B y: Deep Dela Cruz on 05-23-2024 Urine Urobilinogen Normal mg/dl Normal [facility] White blood cell countOrdere d By: Deep Dela Cruz on 05-23-2024 Urine WBC 10-25 SEEN /hpf 0-5 [facility] Albumin to globulin ratioOrd ered By: Deep Dela Cruz on 05-22-2024 Albumin/Globulin [Mass ratio] 0.5 {ratio} Low 0.9-2.4 [facility] Bilirubin, totalOrdered By: Deep Dela Cruz on 05-22-2024 Bilirubin [Mass/Vol] 0.40 mg/dL 0.20-1.00 [facility] Comment on above: For patients on eltr ombopag therapy, use of Dimension Addison TBIL is not recommended. Blood urea nitrogen (BUN)/cr eatinine ratioOrdered By: Deep Dela Cruz on 05-22-2024 Urea nitrogen/Creatinine [Mass ratio] 21.7 mg/mg High 10-20 [facility] CBC-Complete Blood Cnt No Di ffon 05-22-2024 Erythrocyte distribution width (RBC) [Ratio] 15.4 % High 11.6-14.6 [facility] Comment on above: Order Comment: 303.2 Performed By: #### L 500.2500, L100.0100 #### [facility] [address] [place], [address] Hematocrit (Bld) [Volume fraction] 26.4 % Low 37-47 [facility] Comment on above: Order Comment: 303.2 Performed By: #### L 500.2500, L100.0100 #### [facility] [address] [place], [address] Hemoglobin (Bld) [Mass/Vol] 8.0 g/dL Low 12.0-15.0 [facility] Comment on above: Order Comment: 303.2 Performed By: #### L 500.2500, L100.0100 #### [facility] [address] [place], [address] MCH (RBC) [Entitic mass] 28.9 pg Normal 27.0-32.0 [facility] Comment on above: Order Comment: 303.2 Performed By: #### L 500.2500, L100.0100 #### [facility] [address] [place], [address] MCHC (RBC) [Mass/Vol] 30.3 g/dL Low 32-36 [facility] Comment on above: Order Comment: 303.2 Performed By: #### L 500.2500, L100.0100 #### [facility] [address] [place], [address] MCV (RBC) [Entitic vol] 95.3 fL Normal 81-99 [facility] Comment on above: Order Comment: 303.2 Performed By: #### L 500.2500, L100.0100 #### [facility] [address] [place], [address] Platelet mean volume (Bld) [Entitic vol] 10.0 fL Normal 6.2-12.0 [facility] Comment on above: Order Comment: 303.2 Performed By: #### L 500.2500, L100.0100 #### [facility] [address] [place], [address] Platelets (Bld) [#/Vol] 484 10*3/uL High 150-450 [facility] Comment on above: Order Comment: 303.2 Performed By: #### L 500.2500, L100.0100 #### [facility] [address] [place], [address] RBC (Bld) [#/Vol] 2.77 10*6/uL Low 4.2-5.4 [facility] Comment on above: Order Comment: 303.2 Performed By: #### L 500.2500, L100.0100 #### [facility] [address] [place], [address] RDW SD 53.6 fl High 35.1-43.9 [facility] Comment on above: Order Comment: 303.2 Performed By: #### L 500.2500, L100.0100 #### [facility] [address] [place], [address] WBC (Bld) [#/Vol] 8.0 10*3/uL Normal 4.4-11.0 [facility] Comment on above: Order Comment: 303.2 Performed By: #### L 500.2500, L100.0100 #### [facility] [address] [place], [address] CNPNon 05-22-2024 CNPN Normal [facility] Carbon dioxide measurementOr dered By: Deep Dela Cruz on 05-22-2024 CO2 [Moles/Vol] 29.0 mmol/L 21.0-32.0 [facility] Chloride measurementOrdered By: Deep Dela Cruz on 05-22-2024 Chloride [Moles/Vol] 103 mmol/L 98-107 [facility] Comprehensive Metabolic Prof ilon 05-22-2024 Albumin [Mass/Vol] 1.8 g/dL Low 3.2-5.0 [facility] Comment on above: Order Comment: 303.2 Performed By: #### L 500.2500, L100.0100 #### [facility] [address] [place], [address] Albumin/Globulin [Mass ratio] 0.5 {ratio} Low 0.9-2.4 [facility] Comment on above: Order Comment: 303.2 Performed By: #### L 500.2500, L100.0100 #### [facility] [address] [place], [address] ALK P 141 U/L High 45-117 [facility] Comment on above: Order Comment: 303.2 Performed By: #### L 500.2500, L100.0100 #### [facility] [address] [place], [address] ALT [Catalytic activity/Vol] 10 U/L Low 13-56 [facility] Comment on above: Order Comment: 303.2 Performed By: #### L 500.2500, L100.0100 #### [facility] [address] [place], [address] AST [Catalytic activity/Vol] 19 U/L Normal 15-37 [facility] Comment on above: Order Comment: 303.2 Result Comment: Slig ht Hemolysis, Result may be falsely increased. Performed By: #### L 500.2500, L100.0100 #### [facility] [address] [place], [address] Bilirubin [Mass/Vol] 0.40 mg/dL Normal 0.20-1.00 [facility] Comment on above: Order Comment: 303.2 Result Comment: For patients on eltrombopag therapy, use of Dimension [place] TBIL is not recommended. Performed By: #### L 500.2500, L100.0100 #### [facility] [address] [place], [address] BUN/CRE 21.7 RATIO High 10-20 [facility] Comment on above: Order Comment: 303.2 Performed By: #### L 500.2500, L100.0100 #### [facility] [address] [place], [address] CA,Total 8.2 mg/dL Low 8.5-10.1 [facility] Comment on above: Order Comment: 303.2 Performed By: #### L 500.2500, L100.0100 #### [facility] [address] [place], [address] Chloride [Moles/Vol] 103 mmol/L Normal 98-107 [facility] Comment on above: Order Comment: 303.2 Performed By: #### L 500.2500, L100.0100 #### [facility] [address] [place], [address] CO2 [Moles/Vol] 29.0 mmol/L Normal 21.0-32.0 [facility] Comment on above: Order Comment: 303.2 Performed By: #### L 500.2500, L100.0100 #### [facility] [address] [place], [address] Creatinine [Mass/Vol] 0.51 mg/dL Low 0.55-1.02 [facility] Comment on above: Order Comment: 303.2 Result Comment: The validity of the calculated GFR GFRAA in patients over 70 years has not been determined. Clinical correlation is essential. Performed By: #### L 500.2500, L100.0100 #### [facility] [address] [place], [address] EST GFR - AA 149 mL/min Normal >60 [facility] Comment on above: Order Comment: 303.2 Result Comment: Afri can [place] GFR Calc Performed By: #### L 500.2500, L100.0100 #### [facility] [address] [place], [address] GAP 5 Normal 5-15 [facility] Comment on above: Order Comment: 303.2 Performed By: #### L 500.2500, L100.0100 #### [facility] [address] [place], [address] GFR/1.73 sq M.predicted among non-blacks MDRD (S/P/Bld) [Vol rate/Area] 124 mL/min/{1.73_m2} Normal >60 [facility] Comment on above: Order Comment: 303.2 Result Comment: Non- GFR Calc Performed By: #### L 500.2500, L100.0100 #### [facility] [address] [place], [address] Globulin (S) [Mass/Vol] 3.8 g/dL Normal 2.2-4.2 [facility] Comment on above: Order Comment: 303.2 Performed By: #### L 500.2500, L100.0100 #### [facility] [address] [place], [address] Glucose [Mass/Vol] 102 mg/dL Normal 74-106 [facility] Comment on above: Order Comment: 303.2 Result Comment: Fast ing Glucose result from 100 to 125 mg/dL suggests IMPAIRED HOMEOSTASIS per A.D.A. criteria. Performed By: #### L 500.2500, L100.0100 #### [facility] [address] [place], [address] Potassium [Moles/Vol] 4.0 mmol/L Normal 3.5-5.1 [facility] Comment on above: Order Comment: 303.2 Result Comment: Slig ht Hemolysis, Result may be falsely increased. Performed By: #### L 500.2500, L100.0100 #### [facility] [address] [place], [address] Sodium [Moles/Vol] 137 mmol/L Normal 136-145 [facility] Comment on above: Order Comment: 303.2 Performed By: #### L 500.2500, L100.0100 #### [facility] [address] [place], [address] T PROT 5.6 g/dL Low 6.4-8.2 [facility] Comment on above: Order Comment: 303.2 Performed By: #### L 500.2500, L100.0100 #### [facility] [address] [place], [address] Urea nitrogen [Mass/Vol] 11 mg/dL Normal 7-18 [facility] Comment on above: Order Comment: 303.2 Performed By: #### L 500.2500, L100.0100 #### [facility] [address] [place], [address] Erythrocyte distribution wid th (RBC) [Ratio]Ordered By: Deep Dela Cruz on 05-22-2024 Erythrocyte distribution width (RBC) [Entitic vol] 53.6 fL High 35.1-43.9 [facility] Erythrocyte distribution wid th ratioOrdered By: Deep Dela Cruz on 05-22-2024 Erythrocyte distribution width (RBC) [Ratio] 15.4 % High 11.6-14.6 [facility] Estimated glomerular filtrat ion rate (GFR) AmericanOrdered By: Deep Dela Cruz on 05-22-2024 Estimated GFR (MDRD) Amer 149 mL/min >60 [facility] Comment on above: GFR Calc Glomerular filtration rate ( GFR) estimationOrdered By: Deep Dela Cruz on 05-22-2024 Estimated GFR (MDRD) Non-Af Amer 124 mL/min >60 [facility] Comment on above: Non- GFR Calc Glucose measurementOrdered B y: Deep Dela Cruz on 05-22-2024 Glucose [Mass/Vol] 102 mg/dL 74-106 [facility] Comment on above: Fasting Glucose resu lt from 100 to 125 mg/dL suggests IMPAIRED HOMEOSTASIS per A.D.A. criteria. Hematocrit Auto (Bld) [Volum e fraction]Ordered By: Deep Dela Cruz on 05-22-2024 Hematocrit (Bld) [Volume fraction] 26.4 % Low 37-47 [facility] Hemoglobin measurementOrdere d By: Deep Dela Cruz on 05-22-2024 Hemoglobin (Bld) [Mass/Vol] 8.0 g/dL Low 12.0-15.0 [facility] - Chemistry and C hemistry - challengeOrdered By: Deep Dela Cruz on 05-22-2024 AST [Catalytic activity/Vol] 19 U/L 15-37 [facility] Comment on above: Slight Hemolysis, Re sult may be falsely increased. MCV (mean corpuscular volume ) determinationOrdered By: Deep Dela Cruz on 05-22-2024 MCV (RBC) [Entitic vol] 95.3 fL 81-99 [facility] Mean corpuscular hemoglobin (MCH) determinationOrdered By: Deep Dela Cruz on 05-22-2024 MCH (RBC) [Entitic mass] 28.9 pg 27.0-32.0 [facility] Mean corpuscular hemoglobin concentration (MCHC) determinationOrdered By: Deep Dela Cruz on 05-22-2024 MCHC (RBC) [Mass/Vol] 30.3 g/dL Low 32-36 [facility] Mean platelet volume determi nationOrdered By: Deep Dela Cruz on 05-22-2024 Platelet mean volume (Bld) [Entitic vol] 10.0 fL 6.2-12.0 [facility] Platelet countOrdered By: Fried on 05-22-2024 Platelets (Bld) [#/Vol] 484 10*3/uL High 150-450 [facility] Potassium measurementOrdered By: Deep Dela Cruz on 05-22-2024 Potassium [Moles/Vol] 4.0 mmol/L 3.5-5.1 [facility] Comment on above: Slight Hemolysis, Re sult may be falsely increased. RBC Auto (Bld) [#/Vol]Ordere d By: Deep Dela Cruz on 05-22-2024 RBC (Bld) [#/Vol] 2.77 10*6/uL Low 4.2-5.4 [facility] Serum anion gap measurementO rdered By: Deep Dela Cruz on 05-22-2024 Anion gap [Moles/Vol] 5 mmol/L 5-15 [facility] Serum globulin measurementOr dered By: Deep Dela Cruz on 05-22-2024 Globulin (S) [Mass/Vol] 3.8 g/dL 2.2-4.2 [facility] Serum or plasma alanine wilson otransferase (ALT) measurementOrdered By: Deep Dela Cruz on 05-22-2024 ALT [Catalytic activity/Vol] 10 U/L Low 13-56 [facility] Serum or plasma albumin jessi urement (mass/volume)Ordered By: Deep Dela Cruz on 05-22-2024 Albumin [Mass/Vol] 1.8 g/dL Low 3.2-5.0 [facility] Serum or plasma alkaline jero sphatase measurementOrdered By: Deep Dela Cruz on 05-22-2024 ALP [Catalytic activity/Vol] 141 U/L High 45-117 [facility] Serum or plasma calcium jessi urement (mass/volume)Ordered By: Deep Dela Cruz on 05-22-2024 Calcium [Mass/Vol] 8.2 mg/dL Low 8.5-10.1 [facility] Serum or plasma creatinine m easurement (mass/volume)Ordered By: Deep Dela Cruz on 05-22-2024 Creatinine [Mass/Vol] 0.51 mg/dL Low 0.55-1.02 [facility] Comment on above: The validity of the calculated GFR & GFRAA in patients over 70 years has not been determined. Clinical correlation is essential. Serum or plasma urea nitroge n measurement (mass/volume)Ordered By: Deep Dela Cruz on 05-22-2024 Urea nitrogen [Mass/Vol] 11 mg/dL 7-18 [facility] Sodium levelOrdered By: Deep Dela Cruz on 05-22-2024 Sodium [Moles/Vol] 137 mmol/L 136-145 [facility] Total proteinOrdered By: Janet Dela Cruz on 05-22-2024 Protein [Mass/Vol] 5.6 g/dL Low 6.4-8.2 [facility] Urine cultureOrdered By: Janet Dela Cruz on 05-22-2024 Bacteria identified Cx Nom (U) ESBL Escherichia coli Abnormal [facility] Bacteria identified Cx Nom (U) Presumptive Lactobacillus sp. Abnormal [facility] White blood cell (WBC) count Ordered By: Deep Dela Cruz on 05-22-2024 WBC (Bld) [#/Vol] 8.0 10*3/uL 4.4-11.0 [facility] Basic metabolic 2000 panelon 05-19-2024 Anion gap [Moles/Vol] 9 mmol/L Normal 8-15 [facility] Comment on above: Order Comment: Speci men Type: BLOOD SPECIMENOrdering Facility: [facility] Address: [address] [place] [address] Performed By: #### 2 4321-2 ####[facility] LABORATORYCLIA [id number] [place] [address] [place] Calcium [Mass/Vol] 8.1 mg/dL Low 8.5-10.2 [facility] Comment on above: Order Comment: Speci men Type: BLOOD SPECIMENOrdering Facility: [facility] Address: [address] [place] [address] Performed By: #### 2 4321-2 ####[facility] LABORATORYCLIA [id number] [place] [address] [place] Chloride [Moles/Vol] 99 mmol/L Normal 98-107 [facility] Comment on above: Order Comment: Speci men Type: BLOOD SPECIMENOrdering Facility: [facility] Address: [address] [place] [address] Performed By: #### 2 4321-2 ####[facility] LABORATORYCLIA [id number] [address] [place] CO2 [Moles/Vol] 27 mmol/L Normal 22-30 [facility] Comment on above: Order Comment: Speci men Type: BLOOD SPECIMENOrdering Facility: [facility] Address: [address] [place] [address] Performed By: #### 2 4321-2 ####[facility]LECLIA [id number] [address] Creatinine [Mass/Vol] 0.50 mg/dL Low 0.58-0.96 [facility] Comment on above: Order Comment: Speci men Type: BLOOD SPECIMENOrdering Facility: [facility] Address: [address] [place] [address] Performed By: #### 2 4321-2 ####[facility] [id number] [address] Creatinine and Glomerular filtration rate.predicted panel (S/P/Bld) 94 mL/min/1.73m??? Normal >=60 [facility] Comment on above: Order Comment: Speci men Type: BLOOD SPECIMENOrdering Facility: [facility] Address: [address] [place] [address] Result Comment: Kaylene mated Glomerular Filtration Rate [...] actual GFR. Performed By: #### 2 4321-2 ####[facility] LABORATORYCLIA [id number] [address] Glucose [Mass/Vol] 106 mg/dL High 74-99 [facility] Comment on above: Order Comment: Speci men Type: BLOOD SPECIMENOrdering Facility: [facility] Address: [address] [place] [address] Result Comment: The [place] Diabetes Association (ADA) provides guidance for cutoff [...] Standards of Medical Care in Diabetes 2016, [place] [employer] Association. Diabetes Care. 2016.39(Suppl 1). Performed By: #### 2 4321-2 ####[facility] LABORATORYCLIA [id number] [address] STATES [place] [facility] Potassium [Moles/Vol] 3.8 mmol/L Normal 3.7-5.1 [facility] Comment on above: Order Comment: Speci men Type: BLOOD SPECIMENOrdering Facility: [facility] Address: [address] [place] [address] Performed By: #### 2 4321-2 ####[facility] LABORATORYCLIA [id number] [address] Sodium [Moles/Vol] 135 mmol/L Low 136-144 [facility] Comment on above: Order Comment: Speci men Type: BLOOD SPECIMENOrdering Facility: [facility] Address: [address] [place] [address] Performed By: #### 2 4321-2 ####[facility] LABORATORYCLIA [id number] [place] [id number] [place] [facility] Urea nitrogen [Mass/Vol] 13 mg/dL Normal 7-21 [facility] Comment on above: Order Comment: Speci men Type: BLOOD SPECIMENOrdering Facility: [facility] Address: [address] [place] [address] Performed By: #### 2 4321-2 ####[facility] LABORATORYCLIA [id number] [place] [id number] [facility] CASE MANAGEMon 05-19-2024 CASE MANAGEM Normal [facility] CBC panel Auto (Bld)on 05-19 Erythrocyte distribution width (RBC) [Ratio] 15.6 % High 11.5-15.0 [facility] Comment on above: Order Comment: Speci men Type: BLOOD SPECIMENOrdering Facility: [facility] Address: [address] [place] [address] Performed By: #### 5 8410-2 ####[facility] LABORATORYCLIA [id number] [address] OF [facility] Hematocrit (Bld) [Volume fraction] 25.5 % Low 36.0-46.0 [facility] Comment on above: Order Comment: Speci men Type: BLOOD SPECIMENOrdering Facility: [facility] Address: [address] [place] [address] Performed By: #### 5 8410-2 ####[facility] LABORATORYCLIA [id number] [address] [place] [facility] Hemoglobin (Bld) [Mass/Vol] 8.0 g/dL Low 11.5-15.5 [facility] Comment on above: Order Comment: Speci men Type: BLOOD SPECIMENOrdering Facility: [facility] Address: [address] [place] [address] Performed By: #### 5 8410-2 ####[facility] LABORATORYCLIA [id number] [address] [place] MCH (RBC) [Entitic mass] 30.3 pg Normal 26.0-34.0 [facility] Comment on above: Order Comment: Speci men Type: BLOOD SPECIMENOrdering Facility: [facility] Address: [address] [place] [address] Performed By: #### 5 8410-2 ####[facility] LABORATORYCLIA [id number] [address] [place] MCHC (RBC) [Mass/Vol] 31.4 g/dL Normal 30.5-36.0 [facility] Comment on above: Order Comment: Speci men Type: BLOOD SPECIMENOrdering Facility: [facility] Address: [address] [place] [address] Performed By: #### 5 8410-2 ####[facility] LABORATORYCLIA [id number] [address] MCV (RBC) [Entitic vol] 96.6 fL Normal 80.0-100.0 [facility] Comment on above: Order Comment: Speci men Type: BLOOD SPECIMENOrdering Facility: [facility] Address: [address] [place] [address] Performed By: #### 5 8410-2 ####[facility] LABORATORYCLIA [id number] [address] OF [place] Nucleated RBC (Bld) [#/Vol] 10*3/uL Normal <0.01 [facility] Comment on above: Order Comment: Speci men Type: BLOOD SPECIMENOrdering Facility: [facility] Address: [address] [place] [address] Performed By: #### 5 8410-2 ####[facility] LABORATORYCLIA [id number] [address] [place] Platelet mean volume (Bld) [Entitic vol] 10.0 fL Normal 9.0-12.7 [facility] Comment on above: Order Comment: Speci men Type: BLOOD SPECIMENOrdering Facility: [facility] Address: [address] [place] [address] Performed By: #### 5 8410-2 ####[facility] LABORATORYCLIA [id number] [address] OF [place] Platelets (Bld) [#/Vol] 525 10*3/uL High 150-400 [facility] Comment on above: Order Comment: Speci men Type: BLOOD SPECIMENOrdering Facility: [facility] Address: [address] [place] [address] Performed By: #### 5 8410-2 ####[facility] LABORATORYCLIA [id number] [address] [place] RBC (Bld) [#/Vol] 2.64 10*6/uL Low 3.90-5.20 [facility] Comment on above: Order Comment: Speci men Type: BLOOD SPECIMENOrdering Facility: [facility] Address: [address] [place] [address] Performed By: #### 5 8410-2 ####[facility] LABORATORYCLIA [id number] [place] [address] [place] WBC (Bld) [#/Vol] 9.85 10*3/uL Normal 3.70-11.00 [facility] Comment on above: Order Comment: Speci men Type: BLOOD SPECIMENOrdering Facility: [facility] Address: [address] [place] [address] Performed By: #### 5 8410-2 ####[facility] LABORATORYCLIA [id number] [address] [place] CNDSon 05-19-2024 CNDS Normal [facility] THERAPY NTon 05-19-2024 THERAPY NT Normal [facility] THERAPY NT Normal [facility] Basic metabolic 2000 panelon 05-18-2024 Anion gap [Moles/Vol] 11 mmol/L Normal 8-15 [facility] Comment on above: Order Comment: Speci men Type: BLOOD SPECIMENOrdering Facility: [facility] Address: [address] [place] [address] Performed By: #### 2 4321-2 ####[facility] LABORATORYCLIA [id number] [place] [address] [place] Calcium [Mass/Vol] 8.0 mg/dL Low 8.5-10.2 [facility] Comment on above: Order Comment: Speci men Type: BLOOD SPECIMENOrdering Facility: [facility] Address: [address] [place] [address] Performed By: #### 2 4321-2 ####[facility] LABORATORYCLIA [id number] [place] [address] [place] Chloride [Moles/Vol] 98 mmol/L Normal 98-107 [facility] Comment on above: Order Comment: Speci men Type: BLOOD SPECIMENOrdering Facility: [facility] Address: [address] [place] [address] Performed By: #### 2 4321-2 ####[facility] LABORATORYCLIA [id number] [place] [id number] [place] CO2 [Moles/Vol] 25 mmol/L Normal 22-30 [facility] Comment on above: Order Comment: Speci men Type: BLOOD SPECIMENOrdering Facility: [facility] Address: [address] [place] [address] Performed By: #### 2 4321-2 ####[facility] LABORATORYCLIA [id number] [address] [place] Creatinine [Mass/Vol] 0.52 mg/dL Low 0.58-0.96 [facility] Comment on above: Order Comment: Speci men Type: BLOOD SPECIMENOrdering Facility: [facility] Address: [address] [place] [address] Performed By: #### 2 4321-2 ####[facility] LABORATORYCLIA [id number] [address] Creatinine and Glomerular filtration rate.predicted panel (S/P/Bld) 93 mL/min/1.73m??? Normal >=60 [facility] Comment on above: Order Comment: Speci men Type: BLOOD SPECIMENOrdering Facility: [facility] Address: [address] [place] [address] Result Comment: Kaylene mated Glomerular Filtration Rate [...] actual GFR. Performed By: #### 2 4321-2 ####[facility] LABORATORYCLIA [id number] [address] [place] Glucose [Mass/Vol] 116 mg/dL High 74-99 [facility] Comment on above: Order Comment: Speci men Type: BLOOD SPECIMENOrdering Facility: [facility] Address: [address] [place] [address] Result Comment: The [place] [employer] (ADA) provides guidance for cutoff [...] Standards of Medical Care in Diabetes 2016, [place] [employer]. Diabetes Care. 2016.39(Suppl 1). Performed By: #### 2 4321-2 ####[facility] LABORATORYCLIA [id number] [place] [address] [place] Potassium [Moles/Vol] 3.8 mmol/L Normal 3.7-5.1 [facility] Comment on above: Order Comment: Helen men Type: BLOOD SPECIMENOrdering Facility: [facility] Address: [address] [place] [address] Performed By: #### 2 4321-2 ####[facility] LABORATORYCLIA [id number] [place] [address] [place] Sodium [Moles/Vol] 134 mmol/L Low 136-144 [facility] Comment on above: Order Comment: Speci men Type: BLOOD SPECIMENOrdering Facility: [facility] Address: [address] [place] [address] Performed By: #### 2 4321-2 ####[facility] LABORATORYCLIA [id number] [place] [address] [place] Urea nitrogen [Mass/Vol] 13 mg/dL Normal 7-21 [facility] Comment on above: Order Comment: Bernardoi men Type: BLOOD SPECIMENOrdering Facility: [facility] Address: [address] [place] [address] Performed By: #### 2 4321-2 ####[facility] LABORATORYCLIA [id number] [address] STATES OF [facility] CASE MANAGEMon 05-18-2024 CASE MANAGEM Normal [facility] CASE MANAGEM Normal [facility] CBC panel Auto (Bld)on 05-18 Erythrocyte distribution width (RBC) [Ratio] 15.0 % Normal 11.5-15.0 [facility] Comment on above: Order Comment: Speci men Type: BLOOD SPECIMENOrdering Facility: [facility] Address: [address] [place] [address] Performed By: #### 5 8410-2 ####[facility] LABORATORYCLIA [id number] [address] STATES [facility] Hematocrit (Bld) [Volume fraction] 27.1 % Low 36.0-46.0 [facility] Comment on above: Order Comment: Speci men Type: BLOOD SPECIMENOrdering Facility: [facility] Address: [address] [place] [address] Performed By: #### 5 8410-2 ####[facility] LABORATORYCLIA [id number] [address] [place] Hemoglobin (Bld) [Mass/Vol] 8.3 g/dL Low 11.5-15.5 [facility] Comment on above: Order Comment: Speci men Type: BLOOD SPECIMENOrdering Facility: [facility] Address: [address] [place] [address] Performed By: #### 5 8410-2 ####[facility] LABORATORYCLIA [id number] [address] [place] MCH (RBC) [Entitic mass] 28.9 pg Normal 26.0-34.0 [facility] Comment on above: Order Comment: Speci men Type: BLOOD SPECIMENOrdering Facility: [facility] Address: [address] [place] [address] Performed By: #### 5 8410-2 ####[facility] LABORATORYCLIA [id number] [address] [place] MCHC (RBC) [Mass/Vol] 30.6 g/dL Normal 30.5-36.0 [facility] Comment on above: Order Comment: Speci men Type: BLOOD SPECIMENOrdering Facility: [facility] Address: [address] [place] [address] Performed By: #### 5 8410-2 ####[facility] LABORATORYCLIA [id number] [address] [place] MCV (RBC) [Entitic vol] 94.4 fL Normal 80.0-100.0 [facility] Comment on above: Order Comment: Speci men Type: BLOOD SPECIMENOrdering Facility: [facility] Address: [address] [place] [address] Performed By: #### 5 8410-2 ####[facility] LABORATORYCLIA [id number] [address] STATES [facility] Nucleated RBC (Bld) [#/Vol] 0.03 10*3/uL High <0.01 [facility] Comment on above: Order Comment: Speci men Type: BLOOD SPECIMENOrdering Facility: [facility] Address: [address] [place] [address] Performed By: #### 5 8410-2 ####[facility] LABORATORYCLIA [id number] [address] [place] Platelet mean volume (Bld) [Entitic vol] 9.9 fL Normal 9.0-12.7 [facility] Comment on above: Order Comment: Speci men Type: BLOOD SPECIMENOrdering Facility: [facility] Address: [address] [place] [address] Performed By: #### 5 8410-2 ####[facility] LABORATORYCLIA [id number] [address] [place] Platelets (Bld) [#/Vol] 567 10*3/uL High 150-400 [facility] Comment on above: Order Comment: Speci men Type: BLOOD SPECIMENOrdering Facility: [facility] Address: [address] [place] [address] Performed By: #### 5 8410-2 ####[facility] LABORATORYCLIA [id number] [address] [place] RBC (Bld) [#/Vol] 2.87 10*6/uL Low 3.90-5.20 [facility] Comment on above: Order Comment: Speci men Type: BLOOD SPECIMENOrdering Facility: [facility] Address: [address] [place] [address] Performed By: #### 5 8410-2 ####[facility] LABORATORYCLIA [id number] [address] STATES OF [facility] WBC (Bld) [#/Vol] 11.98 10*3/uL High 3.70-11.00 [facility] Comment on above: Order Comment: Speci men Type: BLOOD SPECIMENOrdering Facility: [facility] Address: [address] [place] [address] Performed By: #### 5 8410-2 ####[facility] LABORATORYCLIA [id number] [address] THERAPY NTon 05-18-2024 THERAPY NT Normal [facility] URINALYSIS, REFLEX MICROSCOP ICon 05-18-2024 Bacteria LM.HPF (Urine sed) [#/Area] Rare Abnormal None Seen [facility] Comment on above: Order Comment: Speci men Type: URINE SPECIMENOrdering Facility: [facility] Address: [address] [place] [address] Performed By: #### L [id number] ####[facility] LABORATORYCLIA [id number] [address] OF [facility] Bilirubin Ql (U) Negative Normal Negative [facility] Comment on above: Order Comment: Speci men Type: URINE SPECIMENOrdering Facility: [facility] Address: [address] [place] [address] Performed By: #### L [id number] ####[facility] LABORATORYCLIA [id number] [place] [address] [place] Clarity (Unsp spec) Dense Turbid Abnormal Clear [facility] Comment on above: Order Comment: Speci men Type: URINE SPECIMENOrdering Facility: [facility] Address: [address] [place] [address] Performed By: #### L [id number] ####[facility] LABORATORYCLIA [id number] [address] [place] Color (U) [place] Abnormal yellow [facility] Comment on above: Order Comment: Speci men Type: URINE SPECIMENOrdering Facility: [facility] Address: [address] [place] [address] Performed By: #### L [id number] ####[facility] LABORATORYCLIA [id number] [address] Glucose Test strip (U) [Mass/Vol] Negative Normal Trace, Negative [facility] Comment on above: Order Comment: Speci men Type: URINE SPECIMENOrdering Facility: [facility] Address: [address] [place] [address] Performed By: #### L [id number] ####[facility] LABORATORYCLIA [id number] [place] [address] [place] Hemoglobin Ql (U) 3+ Abnormal Negative, Trace [facility] Comment on above: Order Comment: Speci men Type: URINE SPECIMENOrdering Facility: [facility] Address: [address] [place] [address] Performed By: #### L [id number] ####[facility] LABORATORYCLIA [id number] [address] [place] Ketones Ql (U) Negative Normal Negative, Trace [facility] Comment on above: Order Comment: Speci men Type: URINE SPECIMENOrdering Facility: [facility] Address: [address] [place] [address] Performed By: #### L [id number] ####[facility] LABORATORYCLIA [id number] [address] [place] Leukocyte esterase Test strip Ql (U) 500 Jarrett/uL Abnormal Negative, 25 Jarrett/uL [facility] Comment on above: Order Comment: Speci men Type: URINE SPECIMENOrdering Facility: [facility] Address: [address] [place] [address] Performed By: #### L [id number] ####[facility] LABORATORYCLIA [id number] [address] STATES [facility] Nitrite Ql (U) 2+ Abnormal Negative [facility] Comment on above: Order Comment: Speci men Type: URINE SPECIMENOrdering Facility: [facility] Address: [address] [place] [address] Performed By: #### L [id number] ####[facility] LABORATORYCLIA [id number] [address] pH (U) 6.5 [pH] Normal 5.0-8.0 [facility] Comment on above: Order Comment: Speci men Type: URINE SPECIMENOrdering Facility: [facility] Address: [address] [place] [address] Performed By: #### L [id number] ####[facility] LABORATORYCLIA [id number] [address] [place] Protein (U) [Mass/Vol] 2+ Abnormal Trace , Negative [facility] Comment on above: Order Comment: Speci men Type: URINE SPECIMENOrdering Facility: [facility] Address: [address] [place] [address] Performed By: #### L [id number] ####[facility] LABORATORYCLIA [id number] [place] [address] [place] RBC LM.HPF (Urine sed) [#/Area] /[HPF] Abnormal 0-3 /HPF [facility] Comment on above: Order Comment: Speci men Type: URINE SPECIMENOrdering Facility: [facility] Address: [address] [place] [address] Performed By: #### L [id number] ####[facility] LABORATORYCLIA [id number] [address] [place] Specific gravity (U) [Rel density] 1.014 Normal 1.005-1.030 [facility] Comment on above: Order Comment: Speci men Type: URINE SPECIMENOrdering Facility: [facility] Address: [address] [place] [address] Performed By: #### L [id number] ####[facility] LABORATORYCLIA [id number] [address] STATES OF [facility] Urobilinogen Ql (U) Normal Normal Normal [facility] Comment on above: Order Comment: Speci men Type: URINE SPECIMENOrdering Facility: [facility] Address: [address] [place] [address] Performed By: #### L [id number] ####[facility] LABORATORYCLIA [id number] [address] STATES OF [facility] WBC LM.HPF (Urine sed) [#/Area] /[HPF] Abnormal 0-5 /HPF [facility] Comment on above: Order Comment: Speci men Type: URINE SPECIMENOrdering Facility: [facility] Address: [address] [place] [address] Performed By: #### L [id number] ####[facility] LABORATORYCLIA [id number] [place] [address] [place] US DVT LOWER BILon US DVT LOWER POLO Normal [facility] Urinalysis complete panel (U )on 05-18-2024 Bilirubin Ql (U) Normal [facility] Comment on above: Order Comment: Speci men Type: URINE SPECIMENOrdering Facility: [facility] Address: [address] [place] [address] Result Comment: Unab le to quantitate due to possible contamination. Performed By: #### 2 4356-8 ####[facility] LABORATORYCLIA [id number] [address] [place] Clarity (Unsp spec) Turbid Abnormal Clear [facility] Comment on above: Order Comment: Speci men Type: URINE SPECIMENOrdering Facility: [facility] Address: [address] [place] [address] Performed By: #### 2 4356-8 ####[facility] LABORATORYCLIA [id number] [place] [address] [place] Color (U) Yellow Normal Yellow [facility] Comment on above: Order Comment: Speci men Type: URINE SPECIMENOrdering Facility: [facility] Address: [address] [place] [address] Performed By: #### 2 4356-8 ####[facility] LABORATORYCLIA [id number] [address] [place] Glucose Test strip (U) [Mass/Vol] Normal [facility] Comment on above: Order Comment: Speci men Type: URINE SPECIMENOrdering Facility: [facility] Address: [address] [place] [address] Result Comment: Unab le to quantitate due to possible contamination. Performed By: #### 2 4356-8 ####[facility] LABORATORYCLIA [id number] [address] [place] Hemoglobin Ql (U) Normal [facility] Comment on above: Order Comment: Speci men Type: URINE SPECIMENOrdering Facility: [facility] Address: [address] [place] [address] Result Comment: Unab le to quantitate due to possible contamination. Performed By: #### 2 4356-8 ####[facility] LABORATORYCLIA [id number] [address] [place] Ketones Ql (U) Normal [facility] Comment on above: Order Comment: Speci men Type: URINE SPECIMENOrdering Facility: [facility] Address: [address] [place] [address] Result Comment: Unab le to quantitate due to possible contamination. Performed By: #### 2 4356-8 ####[facility] LABORATORYCLIA [id number] [address] OF [place] Leukocyte esterase Test strip Ql (U) Normal [facility] Comment on above: Order Comment: Speci men Type: URINE SPECIMENOrdering Facility: [facility] Address: [address] [place] [address] Result Comment: Unab le to quantitate due to possible contamination. Performed By: #### 2 4356-8 ####[facility] LABORATORYCLIA [id number] [address] [place] Nitrite Ql (U) Normal [facility] Comment on above: Order Comment: Speci men Type: URINE SPECIMENOrdering Facility: [facility] Address: [address] [place] [address] Result Comment: Unab le to quantitate due to possible contamination. Performed By: #### 2 4356-8 ####[facility] LABORATORYCLIA [id number] [address] [place] pH (U) Normal [facility] Comment on above: Order Comment: Speci men Type: URINE SPECIMENOrdering Facility: [facility] Address: [address] [place] [address] Result Comment: Unab le to quantitate due to possible contamination. Performed By: #### 2 4356-8 ####[facility] LABORATORYCLIA [id number] [address] Protein (U) [Mass/Vol] Normal [facility] Comment on above: Order Comment: Speci men Type: URINE SPECIMENOrdering Facility: [facility] Address: [address] [place] [address] Result Comment: Unab le to quantitate due to possible contamination. Performed By: #### 2 4356-8 ####[facility] LABORATORYCLIA [id number] [address] [place] RBC LM.HPF (Urine sed) [#/Area] /[HPF] Abnormal 0-3 /HPF [facility] Comment on above: Order Comment: Speci men Type: URINE SPECIMENOrdering Facility: [facility] Address: [address] [place] [address] Performed By: #### 2 4356-8 ####[facility] LABORATORYCLIA [id number] [address] [place] Specific gravity (U) [Rel density] Normal [facility] Comment on above: Order Comment: Speci men Type: URINE SPECIMENOrdering Facility: [facility] Address: [address] [place] [address] Result Comment: Unab le to quantitate due to possible contamination. Performed By: #### 2 4356-8 ####[facility] LABORATORYCLIA [id number] [address] STATES [facility] Urobilinogen Ql (U) Normal [facility] Comment on above: Order Comment: Speci men Type: URINE SPECIMENOrdering Facility: [facility] Address: [address] [place] [address] Result Comment: Unab le to quantitate due to possible contamination. Performed By: #### 2 4356-8 ####[facility] LABORATORYCLIA [id number] [address] [place] WBC LM.HPF (Urine sed) [#/Area] /[HPF] Abnormal 0-5 /HPF [facility] Comment on above: Order Comment: Speci men Type: URINE SPECIMENOrdering Facility: [facility] Address: [address] [place] [address] Performed By: #### 2 4356-8 ####[facility] LABORATORYCLIA [id number] [place] [address] [place] Basic metabolic 2000 panelon 05-17-2024 Anion gap [Moles/Vol] 9 mmol/L Normal 8-15 [facility] Comment on above: Order Comment: Speci men Type: BLOOD SPECIMENOrdering Facility: [facility] Address: [address] [place] [address] Performed By: #### 2 4321-2 ####[facility] LABORATORYCLIA [id number] [address] [place] Calcium [Mass/Vol] 7.7 mg/dL Low 8.5-10.2 [facility] Comment on above: Order Comment: Speci men Type: BLOOD SPECIMENOrdering Facility: [facility] Address: [address] [place] [address] Performed By: #### 2 4321-2 ####[facility] LABORATORYCLIA [id number] [address] OF [facility] Chloride [Moles/Vol] 100 mmol/L Normal 98-107 [facility] Comment on above: Order Comment: Speci men Type: BLOOD SPECIMENOrdering Facility: [facility] Address: [address] [place] [address] Performed By: #### 2 4321-2 ####[facility] LABORATORYCLIA [id number] [address] OF [place] CO2 [Moles/Vol] 27 mmol/L Normal 22-30 [facility] Comment on above: Order Comment: Speci men Type: BLOOD SPECIMENOrdering Facility: [facility] Address: [address] [place] [address] Performed By: #### 2 4321-2 ####[facility]LECLIA [id number] [address] OF [facility] Creatinine [Mass/Vol] 0.38 mg/dL Low 0.58-0.96 [facility] Center Comment on above: Order Comment: Speci men Type: BLOOD SPECIMENOrdering Facility: [facility] Address: [address] [place] [address] Performed By: #### 2 4321-2 ####[facility] LABORATORYCLIA [id number] [address] Creatinine and Glomerular filtration rate.predicted panel (S/P/Bld) 100 mL/min/1.73m??? Normal >=60 [facility] Comment on above: Order Comment: Speci men Type: BLOOD SPECIMENOrdering Facility: [facility] Address: [address] [place] [address] Result Comment: Kaylene mated Glomerular Filtration Rate [...] actual GFR. Performed By: #### 2 4321-2 ####[facility] LABORATORYCLIA [id number] [place] [address] [place] Glucose [Mass/Vol] 105 mg/dL High 74-99 [facility] Comment on above: Order Comment: Speci men Type: BLOOD SPECIMENOrdering Facility: [facility] Address: [address] [place] [address] Result Comment: The [place] [employer] (ADA) provides guidance for cutoff [...] Standards of Medical Care in Diabetes 2016, [place] [employer]. Diabetes Care. 2016.39(Suppl 1). Performed By: #### 2 4321-2 ####[facility] LABORATORYCLIA [id number] [place] [address] [place] Potassium [Moles/Vol] 4.5 mmol/L Normal 3.7-5.1 [facility] Comment on above: Order Comment: Helen rg Type: BLOOD SPECIMENOrdering Facility: [facility] Address: [address] [place] [address] Performed By: #### 2 4321-2 ####[facility] LABORATORYCLIA [id number] [place] [address] [place] Sodium [Moles/Vol] 136 mmol/L Normal 136-144 [facility] Comment on above: Order Comment: Speci men Type: BLOOD SPECIMENOrdering Facility: [facility] Address: [address] [place] [address] Performed By: #### 2 4321-2 ####[facility] LABORATORYCLIA [id number] [place] [address] [place] Urea nitrogen [Mass/Vol] 16 mg/dL Normal 7-21 [facility] Comment on above: Order Comment: Speci men Type: BLOOD SPECIMENOrdering Facility: [facility] Address: [address] [place] [address] Performed By: #### 2 4321-2 ####[facility] LABORATORYCLIA [id number] [address] [place] CASE MANAGEMon 05-17-2024 CASE MANAGEM Normal [facility] CBC panel Auto (Bld)on 05-17 Erythrocyte distribution width (RBC) [Ratio] 15.3 % High 11.5-15.0 [facility] Comment on above: Order Comment: Speci men Type: BLOOD SPECIMENOrdering Facility: [facility] Address: [address] [place] [address] Performed By: #### 5 8410-2 ####[facility] LABORATORYCLIA [id number] [address] [place] Hematocrit (Bld) [Volume fraction] 26.3 % Low 36.0-46.0 [facility] Comment on above: Order Comment: Speci men Type: BLOOD SPECIMENOrdering Facility: [facility] Address: [address] [place] [address] Performed By: #### 5 8410-2 ####[facility] LABORATORYCLIA [id number] [address] [place] Hemoglobin (Bld) [Mass/Vol] 8.0 g/dL Low 11.5-15.5 [facility] Comment on above: Order Comment: Speci men Type: BLOOD SPECIMENOrdering Facility: [facility] Address: [address] [place] [address] Performed By: #### 5 8410-2 ####[facility] LABORATORYCLIA [id number] [address] [place] MCH (RBC) [Entitic mass] 29.1 pg Normal 26.0-34.0 [facility] Comment on above: Order Comment: Speci men Type: BLOOD SPECIMENOrdering Facility: [facility] Address: [address] [place] [address] Performed By: #### 5 8410-2 ####[facility] LABORATORYCLIA [id number] [address] MCHC (RBC) [Mass/Vol] 30.4 g/dL Low 30.5-36.0 [facility] Comment on above: Order Comment: Speci men Type: BLOOD SPECIMENOrdering Facility: [facility] Address: [address] [place] [address] Performed By: #### 5 8410-2 ####[facility] LABORATORYCLIA [id number] [address] OF [facility] MCV (RBC) [Entitic vol] 95.6 fL Normal 80.0-100.0 [facility] Comment on above: Order Comment: Speci men Type: BLOOD SPECIMENOrdering Facility: [facility] Address: [address] [place] [address] Performed By: #### 5 8410-2 ####[facility] LABORATORYCLIA [id number] [address] OF [facility] Nucleated RBC (Bld) [#/Vol] 0.06 10*3/uL High <0.01 [facility] Comment on above: Order Comment: Speci men Type: BLOOD SPECIMENOrdering Facility: [facility] Address: [address] [place] [address] Performed By: #### 5 8410-2 ####[facility] LABORATORYCLIA [id number] [address] STATES [facility] Platelet mean volume (Bld) [Entitic vol] 10.2 fL Normal 9.0-12.7 [facility] Comment on above: Order Comment: Speci men Type: BLOOD SPECIMENOrdering Facility: [facility] Address: [address] [place] [address] Performed By: #### 5 8410-2 ####[facility] LABORATORYCLIA [id number] [address] [place] Platelets (Bld) [#/Vol] 386 10*3/uL Normal 150-400 [facility] Comment on above: Order Comment: Speci men Type: BLOOD SPECIMENOrdering Facility: [facility] Address: [address] [place] [address] Performed By: #### 5 8410-2 ####[facility] LABORATORYCLIA [id number] [place] [address] [place] RBC (Bld) [#/Vol] 2.75 10*6/uL Low 3.90-5.20 [facility] Comment on above: Order Comment: Speci men Type: BLOOD SPECIMENOrdering Facility: [facility] Address: [address] [place] [address] Performed By: #### 5 8410-2 ####[facility] LABORATORYCLIA [id number] [address] [place] WBC (Bld) [#/Vol] 9.63 10*3/uL Normal 3.70-11.00 [facility] Comment on above: Order Comment: Speci men Type: BLOOD SPECIMENOrdering Facility: [facility] Address: [address] [place] [address] Performed By: #### 5 8410-2 ####[facility] LABORATORYCLIA [id number] [place] [address] [place] Basic metabolic 2000 panelon 05-16-2024 Anion gap [Moles/Vol] 9 mmol/L Normal 8-15 [facility] Comment on above: Order Comment: Speci men Type: BLOOD SPECIMENOrdering Facility: [facility] Address: [address] [place] [address] Performed By: #### 2 4321-2, 21879-4, 2777-1, 61599-0 ####[facility] LABORATORYCLIA [id number] [address] [place] Calcium [Mass/Vol] 8.1 mg/dL Low 8.5-10.2 [facility] Comment on above: Order Comment: Speci men Type: BLOOD SPECIMENOrdering Facility: [facility] Address: [address] [place] [address] Performed By: #### 2 4321-2, 46508-4, 2777-1, 24300-5 ####[facility] LABORATORYCLIA [id number] [place] [address] [place] Chloride [Moles/Vol] 102 mmol/L Normal 98-107 [facility] Comment on above: Order Comment: Speci men Type: BLOOD SPECIMENOrdering Facility: [facility] Address: [address] [place] [address] Performed By: #### 2 4321-2, 73776-1, 2776-1, 21497-5 ####[facility] LABORATORYCLIA [id number] [place] [id number] [place] [facility] CO2 [Moles/Vol] 27 mmol/L Normal 22-30 [facility] Comment on above: Order Comment: Speci men Type: BLOOD SPECIMENOrdering Facility: [facility] Address: [address] [place] [address] Performed By: #### 2 4321-2, , 277-1, 12439-7 ####[facility]RAWFORDSVILLECLIA [id number] [address] STATES OF [facility] Creatinine [Mass/Vol] 0.40 mg/dL Low 0.58-0.96 [facility] Comment on above: Order Comment: Speci men Type: BLOOD SPECIMENOrdering Facility: [facility] Address: [address] [place] [address] Performed By: #### 2 4321-2, 78659-5, 277-1, 67956-9 ####[facility] LABORATORYCLIA [id number] [place] [address] [facility] Creatinine and Glomerular filtration rate.predicted panel (S/P/Bld) 99 mL/min/1.73m??? Normal >=60 [facility] Comment on above: Order Comment: Speci men Type: BLOOD SPECIMENOrdering Facility: [facility] Address: [address] [place] [address] Result Comment: Kaylene mated Glomerular Filtration Rate (eGFR) is calculated using the 2021 CKD-EPI creatinine equation. This equation utilizes serum creatinine, sex, and age as parameters. The creatinine assay has traceable calibration to isotope dilution-mass spectrometry. Refer to KDIGO guidelines for clinical interpretation. In patients with unstable renal function, e.g. those with acute kidney injury, the eGFR may not accurately reflect actual GFR. Performed By: #### 2 4321-2, 92742-3, 2777-1, 53743-3 ####[facility] LABORATORYCLIA [id number] [place] [address] [place] Glucose [Mass/Vol] 93 mg/dL Normal 74-99 [facility] Comment on above: Order Comment: Speci ifrah Type: BLOOD SPECIMENOrdering Facility: [facility] Address: [address] [place] [address] Result Comment: The [place] Diabetes [employer] (ADA) provides guidance for cutoff [...] Standards of Medical Care in Diabetes 2016, [place] [employer]. Diabetes Care. 2016.39(Suppl 1). Performed By: #### 2 4321-2, 38810-5, 2776-, 44085-4 ####[facility] LABORATORYCLIA [id number] [place] [address] [place] Potassium [Moles/Vol] 3.8 mmol/L Normal 3.7-5.1 [facility] Comment on above: Order Comment: Helen rg Type: BLOOD SPECIMENOrdering Facility: [facility] Address: [address] [place] [address] Performed By: #### 2 4321-2, 59151-0, 2777-1, 04545-8 ####[facility] LABORATORYCLIA [id number] [address] [place] Sodium [Moles/Vol] 138 mmol/L Normal 136-144 [facility] Comment on above: Order Comment: Speci men Type: BLOOD SPECIMENOrdering Facility: [facility] Address: [address] [place] [address] Performed By: #### 2 4321-2, 85300-4, 2777-1, 59952-3 ####[facility] LABORATORYCLIA [id number] [address] [place] Urea nitrogen [Mass/Vol] 18 mg/dL Normal 7-21 [facility] Comment on above: Order Comment: Speci men Type: BLOOD SPECIMENOrdering Facility: [facility] Address: [address] [place] [address] Performed By: #### 2 4321-2, 45285-5, 2777-1, 82269-1 ####[facility] LABORATORYCLIA [id number] [address] [place] OF [facility] CBC panel Auto (Bld)on 05-16 Erythrocyte distribution width (RBC) [Ratio] 15.1 % High 11.5-15.0 [facility] Comment on above: Order Comment: Speci men Type: BLOOD SPECIMENOrdering Facility: [facility] Address: [address] [place] [address] Performed By: #### 5 8410-2 ####[facility] LABORATORYCLIA [id number] [address] [place] Hematocrit (Bld) [Volume fraction] 28.4 % Low 36.0-46.0 [facility] Comment on above: Order Comment: Speci men Type: BLOOD SPECIMENOrdering Facility: [facility] Address: [address] [place] [address] Performed By: #### 5 8410-2 ####[facility] LABORATORYCLIA [id number] [address] [place] Hemoglobin (Bld) [Mass/Vol] 8.9 g/dL Low 11.5-15.5 [facility] Comment on above: Order Comment: Speci men Type: BLOOD SPECIMENOrdering Facility: [facility] Address: [address] [place] [address] Performed By: #### 5 8410-2 ####[facility] LABORATORYCLIA [id number] [address] MCH (RBC) [Entitic mass] 29.7 pg Normal 26.0-34.0 [facility] Comment on above: Order Comment: Speci men Type: BLOOD SPECIMENOrdering Facility: [facility] Address: [address] [place] [address] Performed By: #### 5 8410-2 ####[facility] LABORATORYCLIA [id number] [address] MCHC (RBC) [Mass/Vol] 31.3 g/dL Normal 30.5-36.0 [facility] Comment on above: Order Comment: Speci men Type: BLOOD SPECIMENOrdering Facility: [facility] Address: [address] [place] [address] Performed By: #### 5 8410-2 ####[facility] LABORATORYCLIA [id number] [address] MCV (RBC) [Entitic vol] 94.7 fL Normal 80.0-100.0 [facility] Comment on above: Order Comment: Speci men Type: BLOOD SPECIMENOrdering Facility: [facility] Address: [address] [place] [address] Performed By: #### 5 8410-2 ####[facility] LABORATORYCLIA [id number] [address] Nucleated RBC (Bld) [#/Vol] 0.08 10*3/uL High <0.01 [facility] Comment on above: Order Comment: Speci men Type: BLOOD SPECIMENOrdering Facility: [facility] Address: [address] [place] [address] Performed By: #### 5 8410-2 ####[facility] LABORATORYCLIA [id number] [place] [address] Platelet mean volume (Bld) [Entitic vol] 10.1 fL Normal 9.0-12.7 [facility] Comment on above: Order Comment: Speci men Type: BLOOD SPECIMENOrdering Facility: [facility] Address: [address] [place] [address] Performed By: #### 5 8410-2 ####[facility] LABORATORYCLIA [id number] [place] [address] [place] Platelets (Bld) [#/Vol] 509 10*3/uL High 150-400 [facility] Comment on above: Order Comment: Speci men Type: BLOOD SPECIMENOrdering Facility: [facility] Address: [address] [place] [address] Performed By: #### 5 8410-2 ####[facility] LABORATORYCLIA [id number] [address] [place] RBC (Bld) [#/Vol] 3.00 10*6/uL Low 3.90-5.20 [facility] Comment on above: Order Comment: Speci men Type: BLOOD SPECIMENOrdering Facility: [facility] Address: [address] [place] [address] Performed By: #### 5 8410-2 ####[facility] LABORATORYCLIA [id number] [address] [place] WBC (Bld) [#/Vol] 11.08 10*3/uL High 3.70-11.00 [facility] Comment on above: Order Comment: Speci men Type: BLOOD SPECIMENOrdering Facility: [facility] Address: [address] [place] [address] Performed By: #### 5 8410-2 ####[facility] LABORATORYCLIA [id number] [address] Hepatic function 2000 panelo n 05-16-2024 Albumin [Mass/Vol] 2.4 g/dL Low 3.9-4.9 [facility] Comment on above: Order Comment: Speci men Type: BLOOD SPECIMENOrdering Facility: [facility] Address: [address] [place] [address] Performed By: #### 2 4321-2, 02717-2, 2777-1, 30518-1 ####[facility] LABORATORYCLIA [id number] [address] ALP [Catalytic activity/Vol] 119 U/L Normal 34-123 [facility] Comment on above: Order Comment: Speci men Type: BLOOD SPECIMENOrdering Facility: [facility] Address: [address] [place] [address] Performed By: #### 2 4321-2, 75046-8, 2776-1, 53656-1 ####[facility] LABORATORYCLIA [id number] [address] ALT With P-5'-P [Catalytic activity/Vol] 15 U/L Normal 7-38 [facility] Comment on above: Order Comment: Speci men Type: BLOOD SPECIMENOrdering Facility: [facility] Address: [address] [place] [address] Performed By: #### 2 4321-2, 41849-5, 277-1, 75879-5 ####[facility] LABORATORYCLIA [id number] [address] AST With P-5'-P [Catalytic activity/Vol] 15 U/L Normal 13-35 [facility] Comment on above: Order Comment: Speci men Type: BLOOD SPECIMENOrdering Facility: [facility] Address: [address] [place] [address] Performed By: #### 2 4321-2, 43271-5, 277-1, 69707-8 ####[facility] LABORATORYCLIA [id number] [address] Bilirubin [Mass/Vol] 0.4 mg/dL Normal 0.2-1.3 [facility] Comment on above: Order Comment: Speci men Type: BLOOD SPECIMENOrdering Facility: [facility] Address: [address] [place] [address] Performed By: #### 2 4321-2, 72855-1, 2777-1, 08884-1 ####[facility] LABORATORYCLIA [id number] [place] [address] [place] Bilirubin.conjugated [Mass/Vol] mg/dL Normal <0.2 [facility] Comment on above: Order Comment: Speci men Type: BLOOD SPECIMENOrdering Facility: [facility] Address: [address] [place] [address] Performed By: #### 2 4321-2, 46218-1, 2777-1, 14311-8 ####[facility] LABORATORYCLIA [id number] [place] [id number] [place] Protein [Mass/Vol] 5.4 g/dL Low 6.3-8.0 [facility] Comment on above: Order Comment: Speci men Type: BLOOD SPECIMENOrdering Facility: [facility] Address: [address] [place] [address] Performed By: #### 2 4321-2, 04734-7, 2777-1, 25731-1 ####[facility] LABORATORYCLIA [id number] [place] [address] [place] Magnesium SerPl-mCncon 05-16 Magnesium [Mass/Vol] 1.9 mg/dL Normal 1.7-2.3 [facility] Comment on above: Order Comment: Speci men Type: BLOOD SPECIMENOrdering Facility: [facility] Address: [address] [place] [address] Performed By: #### 2 4321-2, 09043-0, 2777-1, 86061-5 ####[facility] LABORATORYCLIA [id number] [place] [id number] [place] Phosphate SerPl-mCncon 05-16 Phosphate [Mass/Vol] 3.5 mg/dL Normal 2.7-4.8 [facility] Comment on above: Order Comment: Speci men Type: BLOOD SPECIMENOrdering Facility: [facility] Address: [address] [place] [address] Performed By: #### 2 4321-2, 37244-0, 2777-1, 87632-7 ####[facility] LABORATORYCLIA [id number] [place] [address] [place] THERAPY NTon 05-16-2024 THERAPY NT Normal [facility] Basic metabolic 2000 panelon 05-15-2024 Anion gap [Moles/Vol] 7 mmol/L Low 8-15 [facility] Comment on above: Order Comment: Speci men Type: BLOOD SPECIMENOrdering Facility: [facility] Address: [address] [place], [place] [address] Performed By: #### 2 777-1, 93130-8, ####[facility] LABORATORYCLIA [id number] [place] [address] [place] Calcium [Mass/Vol] 8.2 mg/dL Low 8.5-10.2 [facility] Comment on above: Order Comment: Speci men Type: BLOOD SPECIMENOrdering Facility: [facility] Address: [address] [place], [place] [address] Performed By: #### 2 777-1, 99372-0, ####[facility] LABORATORYCLIA [id number] [place] [address] [place] Chloride [Moles/Vol] 107 mmol/L Normal 98-107 [facility] Comment on above: Order Comment: Speci men Type: BLOOD SPECIMENOrdering Facility: [facility] Address: [address] [place] [id number] Performed By: #### 2 777-1, 14228-5, ####[facility] LABORATORYCLIA [id number] [place] [address] [place] CO2 [Moles/Vol] 27 mmol/L Normal 22-30 [facility] Comment on above: Order Comment: Speci men Type: BLOOD SPECIMENOrdering Facility: [facility] Address: [address] [place] [id number] Performed By: #### 2 777-1, 12977-3, ####[facility]PITALIA [id number] [place] [address] [place] [facility] Creatinine [Mass/Vol] 0.37 mg/dL Low 0.58-0.96 [facility] Comment on above: Order Comment: Specmigel rg Type: BLOOD SPECIMENOrdering Facility: [facility] Address: [address] [place] [address] Performed By: #### 2 777-1, , ####[facility] HOSPITALIA [id number] [place] [address] [facility] Creatinine and Glomerular filtration rate.predicted panel (S/P/Bld) 101 mL/min/1.73m??? Normal >=60 [facility] Comment on above: Order Comment: Helen [facility] Type: BLOOD SPECIMENOrdering Facility: [facility] Address: [address] [place] [address] Result Comment: Kaylene mated Glomerular Filtration Rate [...] actual GFR. Performed By: #### 2 777-1, , ####[facility] HOSPITALIA [id number] [place] [id number] [place] [facility] Glucose [Mass/Vol] 164 mg/dL High 74-99 [facility] Comment on above: Order Comment: Specmigel [facility] Type: BLOOD SPECIMENOrdering Facility: [facility] Address: [address] [place] [address] Result Comment: The [place] [employer] (ADA) provides guidance for cutoff [...] Standards of Medical Care in Diabetes 2016, [place] [employer]. Diabetes Care. 2016.39(Suppl 1). Performed By: #### 2 777-1, 62052-6, ####[facility] LABORATORYCLIA [id number] [place] [address] [place] Potassium [Moles/Vol] 4.2 mmol/L Normal 3.7-5.1 [facility] Comment on above: Order Comment: Helen rg Type: BLOOD SPECIMENOrdering Facility: [facility] Address: [address] [place] [address] Performed By: #### 2 777-1, 63393-9, ####[facility] LABORATORYCLIA [id number] [place] [address] [place] Sodium [Moles/Vol] 141 mmol/L Normal 136-144 [facility] Comment on above: Order Comment: Helen rg Type: BLOOD SPECIMENOrdering Facility: [facility] Address: [address] [place] [address] Performed By: #### 2 777-1, 65563-3, ####[facility] LABORATORYCLIA [id number] [place] [address] [place] Urea nitrogen [Mass/Vol] 21 mg/dL Normal 7-21 [facility] Comment on above: Order Comment: Bernardoi men Type: BLOOD SPECIMENOrdering Facility: [facility] Address: [address] [place] [address] Performed By: #### 2 777-1, , ####[facility] LABORATORYCLIA [id number] [place] [id number] [place] CASE MANAGEMon 05-15-2024 CASE MANAGEM Normal [facility] CASE MANAGEM Normal [facility] CASE MANAGEM Normal [facility] CBC panel Auto (Bld)on 05-15 Erythrocyte distribution width (RBC) [Ratio] 15.2 % High 11.5-15.0 [facility] Comment on above: Order Comment: Speci men Type: BLOOD SPECIMENOrdering Facility: [facility] Address: [address] [place] [address] Performed By: #### 5 8410-2 ####[facility] LABORATORYCLIA [id number] [address] STATES OF [facility] Hematocrit (Bld) [Volume fraction] 28.5 % Low 36.0-46.0 [facility] Comment on above: Order Comment: Speci men Type: BLOOD SPECIMENOrdering Facility: [facility] Address: [address] [place] [address] Performed By: #### 5 8410-2 ####[facility] LABORATORYCLIA [id number] [address] [place] [facility] Hemoglobin (Bld) [Mass/Vol] 8.7 g/dL Low 11.5-15.5 [facility] Comment on above: Order Comment: Speci men Type: BLOOD SPECIMENOrdering Facility: [facility] Address: [address] [place] [address] Performed By: #### 5 8410-2 ####[facility] LABORATORYCLIA [id number] [address] [place] MCH (RBC) [Entitic mass] 29.7 pg Normal 26.0-34.0 [facility] Comment on above: Order Comment: Speci men Type: BLOOD SPECIMENOrdering Facility: [facility] Address: [address] [place] [address] Performed By: #### 5 8410-2 ####[facility] LABORATORYCLIA [id number] [address] [place] MCHC (RBC) [Mass/Vol] 30.5 g/dL Normal 30.5-36.0 [facility] Comment on above: Order Comment: Speci men Type: BLOOD SPECIMENOrdering Facility: [facility] Address: [address] [place] [address] Performed By: #### 5 8410-2 ####[facility] LABORATORYCLIA [id number] [address] MCV (RBC) [Entitic vol] 97.3 fL Normal 80.0-100.0 [facility] Comment on above: Order Comment: Speci men Type: BLOOD SPECIMENOrdering Facility: [facility] Address: [address] [place] [address] Performed By: #### 5 8410-2 ####[facility] LABORATORYCLIA [id number] [address] OF [place] Nucleated RBC (Bld) [#/Vol] 0.07 10*3/uL High <0.01 [facility] Comment on above: Order Comment: Speci men Type: BLOOD SPECIMENOrdering Facility: [facility] Address: [address] [place] [address] Performed By: #### 5 8410-2 ####[facility] LABORATORYCLIA [id number] [address] Platelet mean volume (Bld) [Entitic vol] 10.2 fL Normal 9.0-12.7 [facility] Comment on above: Order Comment: Speci men Type: BLOOD SPECIMENOrdering Facility: [facility] Address: [address] [place] [address] Performed By: #### 5 8410-2 ####[facility] LABORATORYCLIA [id number] [address] Platelets (Bld) [#/Vol] 485 10*3/uL High 150-400 [facility] Comment on above: Order Comment: Speci men Type: BLOOD SPECIMENOrdering Facility: [facility] Address: [address] [place] [address] Performed By: #### 5 8410-2 ####[facility] LABORATORYCLIA [id number] [address] OF [place] RBC (Bld) [#/Vol] 2.93 10*6/uL Low 3.90-5.20 [facility] Comment on above: Order Comment: Speci men Type: BLOOD SPECIMENOrdering Facility: [facility] Address: [address] [place] [address] Performed By: #### 5 8410-2 ####[facility] LABORATORYCLIA [id number] [address] [place] WBC (Bld) [#/Vol] 11.61 10*3/uL High 3.70-11.00 [facility] Comment on above: Order Comment: Speci men Type: BLOOD SPECIMENOrdering Facility: [facility] Address: [address] [place] [address] Performed By: #### 5 8410-2 ####[facility] LABORATORYCLIA [id number] [address] OF [facility] CONSULT PROGon 05-15-2024 CONSULT PROG Normal [facility] Magnesium [Mass/Vol] 2.0 mg/dL Normal 1.7-2.3 [facility] Comment on above: Order Comment: Speci men Type: BLOOD SPECIMENOrdering Facility: [facility] Address: [address] [place] [address] Performed By: #### 2 777-1, 70685-5, ####[facility] LABORATORYCLIA [id number] [address] [place] NM HEPATOBILIARY WO RXon NM HEPATOBILIARY WO RX Normal [facility] NUTRITIONon 05-15-2024 NUTRITION Normal [facility] Phosphate SerPl-mCncon 05-15 Phosphate [Mass/Vol] 2.0 mg/dL Low 2.7-4.8 [facility] Comment on above: Order Comment: Speci men Type: BLOOD SPECIMENOrdering Facility: [facility] Address: [address] [place] [address] Performed By: #### 2 777-1, 17696-8, ####[facility]ORATORYCLIA [id number] [place] [address] [place] Basic metabolic 2000 panelon 05-14-2024 Anion gap [Moles/Vol] 7 mmol/L Low 8-15 [facility] Comment on above: Order Comment: Speci men Type: BLOOD SPECIMENOrdering Facility: [facility] Address: [address] [place] [address] Performed By: #### 2 4321-2, 2776-05, ####[facility] LABORATORYCLIA [id number] [place] [address] [place] Calcium [Mass/Vol] 8.0 mg/dL Low 8.5-10.2 [facility] Comment on above: Order Comment: Speci men Type: BLOOD SPECIMENOrdering Facility: [facility] Address: [address] [place] [address] Performed By: #### 2 4321-2, 2776-05, ####[facility] LABORATORYCLIA [id number] [place] [address] [place] Chloride [Moles/Vol] 110 mmol/L High 98-107 [facility] Comment on above: Order Comment: Speci men Type: BLOOD SPECIMENOrdering Facility: [facility] Address: [address] [place] [address] Performed By: #### 2 4321-2, 2776-05, ####[facility] LABORATORYCLIA [id number] [place] [address] [place] CO2 [Moles/Vol] 26 mmol/L Normal 22-30 [facility] Comment on above: Order Comment: Speci men Type: BLOOD SPECIMENOrdering Facility: [facility] Address: [address] [place] [address] Performed By: #### 2 4321-2, 2776-05, ####[facility] LABORATORYCLIA [id number] [place] [address] [place] Creatinine [Mass/Vol] 0.47 mg/dL Low 0.58-0.96 [facility] Comment on above: Order Comment: Helen rg Type: BLOOD SPECIMENOrdering Facility: [facility] Address: [address] [place] [id number] Performed By: #### 2 4321-2, 2777-1, ####[facility] LABORATORYCLIA [id number] [place] [address] [place] Creatinine and Glomerular filtration rate.predicted panel (S/P/Bld) 95 mL/min/1.73m??? Normal >=60 [facility] Comment on above: Order Comment: Helen rg Type: BLOOD SPECIMENOrdering Facility: [facility] Address: [address] [place] [address] Result Comment: Kaylene mated Glomerular Filtration Rate [...] GFR. Performed By: #### 2 4321-2, 2777-, ####[facility] LABORATORYCLIA [id number] [place] [id number] [place] Glucose [Mass/Vol] 224 mg/dL High 74-99 [facility] Comment on above: Order Comment: Helen rg Type: BLOOD SPECIMENOrdering Facility: [facility] Address: [address] [place] [address] Result Comment: The [place] [employer] (ADA) provides guidance for cutoff [...] Standards of Medical Care in Diabetes 2016, [place] [employer]. Diabetes Care. 2016.39(Suppl 1). Performed By: #### 2 4321-2, 277-, ####[facility] LABORATORYCLIA [id number] [place] [address] [place] Potassium [Moles/Vol] 4.2 mmol/L Normal 3.7-5.1 [facility] Comment on above: Order Comment: Speci men Type: BLOOD SPECIMENOrdering Facility: [facility] Address: [address] [place] [address] Performed By: #### 2 4321-2, 2776-05, ####[facility] LABORATORYCLIA [id number] [address] STATES OF [facility] Sodium [Moles/Vol] 143 mmol/L Normal 136-144 [facility] Comment on above: Order Comment: Speci men Type: BLOOD SPECIMENOrdering Facility: [facility] Address: [address] [place] [address] Performed By: #### 2 4321-2, 2776-05, ####[facility] LABORATORYCLIA [id number] [address] [place] Urea nitrogen [Mass/Vol] 21 mg/dL Normal 7-21 [facility] Comment on above: Order Comment: Speci men Type: BLOOD SPECIMENOrdering Facility: [facility] Address: [address] [place] [address] Performed By: #### 2 4321-2, 2776-05, ####[facility] LABORATORYCLIA [id number] [place] [id number] [place] CBC panel Auto (Bld)on 05-14 Erythrocyte distribution width (RBC) [Ratio] 15.3 % High 11.5-15.0 [facility] Comment on above: Order Comment: Speci men Type: BLOOD SPECIMENOrdering Facility: [facility] Address: [address] [place] [address] Performed By: #### 5 8410-2 ####[facility] LABORATORYCLIA [id number] [address] Hematocrit (Bld) [Volume fraction] 24.1 % Low 36.0-46.0 [facility] Comment on above: Order Comment: Speci men Type: BLOOD SPECIMENOrdering Facility: [facility] Address: [address] [place] [address] Performed By: #### 5 8410-2 ####[facility] LABORATORYCLIA [id number] [address] Hemoglobin (Bld) [Mass/Vol] 7.5 g/dL Low 11.5-15.5 [facility] Comment on above: Order Comment: Speci men Type: BLOOD SPECIMENOrdering Facility: [facility] Address: [address] [place] [address] Performed By: #### 5 8410-2 ####[facility] LABORATORYCLIA [id number] [address] MCH (RBC) [Entitic mass] 29.6 pg Normal 26.0-34.0 [facility] Comment on above: Order Comment: Speci men Type: BLOOD SPECIMENOrdering Facility: [facility] Address: [address] [place] [address] Performed By: #### 5 8410-2 ####[facility] LABORATORYCLIA [id number] [address] [place] MCHC (RBC) [Mass/Vol] 31.1 g/dL Normal 30.5-36.0 [facility] Comment on above: Order Comment: Speci men Type: BLOOD SPECIMENOrdering Facility: [facility] Address: [address] [place] [address] Performed By: #### 5 8410-2 ####[facility] LABORATORYCLIA [id number] [address] MCV (RBC) [Entitic vol] 95.3 fL Normal 80.0-100.0 [facility] Comment on above: Order Comment: Speci men Type: BLOOD SPECIMENOrdering Facility: [facility] Address: [address] [place] [address] Performed By: #### 5 8410-2 ####[facility] LABORATORYCLIA [id number] [address] [place] Nucleated RBC (Bld) [#/Vol] 0.02 10*3/uL High <0.01 [facility] Comment on above: Order Comment: Speci men Type: BLOOD SPECIMENOrdering Facility: [facility] Address: [address] [place] [address] Performed By: #### 5 8410-2 ####[facility] LABORATORYCLIA [id number] [address] [place] Platelet mean volume (Bld) [Entitic vol] 10.1 fL Normal 9.0-12.7 [facility] Comment on above: Order Comment: Speci men Type: BLOOD SPECIMENOrdering Facility: [facility] Address: [address] [place] [address] Performed By: #### 5 8410-2 ####[facility] LABORATORYCLIA [id number] [address] [place] Platelets (Bld) [#/Vol] 409 10*3/uL High 150-400 [facility] Comment on above: Order Comment: Speci men Type: BLOOD SPECIMENOrdering Facility: [facility] Address: [address] [place] [address] Performed By: #### 5 8410-2 ####[facility] LABORATORYCLIA [id number] [place] [address] [place] RBC (Bld) [#/Vol] 2.53 10*6/uL Low 3.90-5.20 [facility] Comment on above: Order Comment: Speci men Type: BLOOD SPECIMENOrdering Facility: [facility] Address: [address] [place] [address] Performed By: #### 5 8410-2 ####[facility] LABORATORYCLIA [id number] [address] [place] WBC (Bld) [#/Vol] 7.33 10*3/uL Normal 3.70-11.00 [facility] Comment on above: Order Comment: Speci men Type: BLOOD SPECIMENOrdering Facility: [facility] Address: [address] [place] [address] Performed By: #### 5 8410-2 ####[facility] LABORATORYCLIA [id number] [address] Magnesium SerPl-nc 05-14 Magnesium [Mass/Vol] 2.0 mg/dL Normal 1.7-2.3 [facility] Comment on above: Order Comment: Speci men Type: BLOOD SPECIMENOrdering Facility: [facility] Address: [address] [place] [address] Performed By: #### 2 4321-2, 2777-1, 34573-4 ####[facility] LABORATORYCLIA [id number] [address] Phosphate SerPl-mCncon 05-14 Phosphate [Mass/Vol] 2.9 mg/dL Normal 2.7-4.8 [facility] Comment on above: Order Comment: Speci men Type: BLOOD SPECIMENOrdering Facility: [facility] Address: [address] [place] [address] Performed By: #### 2 4321-2, 2777-1, 63877-8 ####[facility] LABORATORYCLIA [id number] [address] [place] THERAPY NTon 05-14-2024 THERAPY NT Normal [facility] Basic metabolic 2000 panelon 05-13-2024 Anion gap [Moles/Vol] 12 mmol/L Normal 8-15 [facility] Comment on above: Order Comment: Speci men Type: BLOOD SPECIMENOrdering Facility: [facility] Address: [address] [place] [address] Performed By: #### 2 4321-2, 23393-6, 2776-1 ####[facility] LABORATORYCLIA [id number] [address] [place] Calcium [Mass/Vol] 8.3 mg/dL Low 8.5-10.2 [facility] Comment on above: Order Comment: Speci men Type: BLOOD SPECIMENOrdering Facility: [facility] Address: [address] [place] [address] Performed By: #### 2 4321-2, , 2776-05 ####[facility] LABORATORYCLIA [id number] [place] [address] [place] Chloride [Moles/Vol] 107 mmol/L Normal 98-107 [facility] Comment on above: Order Comment: Speci men Type: BLOOD SPECIMENOrdering Facility: [facility] Address: [address] [place] [address] Performed By: #### 2 4321-2, , 2776-05 ####[facility] LABORATORYCLIA [id number] [address] [place] CO2 [Moles/Vol] 19 mmol/L Low 22-30 [facility] Comment on above: Order Comment: Speci men Type: BLOOD SPECIMENOrdering Facility: [facility] Address: [address] [place] [address] Performed By: #### 2 4321-2, , 2776-05 ####[facility] LABORATORYCLIA [id number] [address] [place] Creatinine [Mass/Vol] 0.56 mg/dL Low 0.58-0.96 [facility] Comment on above: Order Comment: Speci men Type: BLOOD SPECIMENOrdering Facility: [facility] Address: [address] [place] [address] Performed By: #### 2 4321-2, , 2776-05 ####[facility] LABORATORYCLIA [id number] [address] [place] Creatinine and Glomerular filtration rate.predicted panel (S/P/Bld) 91 mL/min/1.73m??? Normal >=60 [facility] Comment on above: Order Comment: Speci men Type: BLOOD SPECIMENOrdering Facility: [facility] Address: [address] [place] [address] Result Comment: Kaylene mated Glomerular Filtration Rate [...] 2 4321-2, , 2776-05 ####[facility] LABORATORYCLIA [id number] [place] [address] [place] Glucose [Mass/Vol] 213 mg/dL High 74-99 [facility] Comment on above: Order Comment: Helen rg Type: BLOOD SPECIMENOrdering Facility: [facility] Address: [address] [place] [address] Result Comment: The [place] [employer] (ADA) provides guidance for cutoff [...] Standards of Medical Care in Diabetes 2016, [place] [employer]. Diabetes Care. 2016.39(Suppl 1). Performed By: #### 2 4321-2, , 2776-05 ####[facility] LABORATORYCLIA [id number] [place] [id number] [place] Potassium [Moles/Vol] 3.4 mmol/L Low 3.7-5.1 [facility] Comment on above: Order Comment: Helen rg Type: BLOOD SPECIMENOrdering Facility: [facility] Address: [address] [place] [address] Performed By: #### 2 4321-2, , 2776-05 ####[facility] LABORATORYCLIA [id number] [place] [id number] [place] Sodium [Moles/Vol] 138 mmol/L Normal 136-144 [facility] Comment on above: Order Comment: Speci men Type: BLOOD SPECIMENOrdering Facility: [facility] Address: [address] [place] [address] Performed By: #### 2 4321-2, , 2776-05 ####[facility] LABORATORYCLIA [id number] [place] [id number] [place] Urea nitrogen [Mass/Vol] 17 mg/dL Normal 7-21 [facility] Comment on above: Order Comment: Speci men Type: BLOOD SPECIMENOrdering Facility: [facility] Address: [address] [place] [address] Performed By: #### 2 4321-2, , 2776-05 ####[facility] LABORATORYCLIA [id number] [address] [place] CBC panel Auto (Bld)on 05-13 Erythrocyte distribution width (RBC) [Ratio] 15.2 % High 11.5-15.0 [facility] Comment on above: Order Comment: Speci men Type: BLOOD SPECIMENOrdering Facility: [facility] Address: [address] [place] [address] Performed By: #### 5 8410-2 ####[facility] LABORATORYCLIA [id number] [address] STATES OF [facility] Hematocrit (Bld) [Volume fraction] 24.2 % Low 36.0-46.0 [facility] Comment on above: Order Comment: Speci men Type: BLOOD SPECIMENOrdering Facility: [facility] Address: [address] [place] [address] Performed By: #### 5 8410-2 ####[facility] LABORATORYCLIA [id number] [place] [address] [place] Hemoglobin (Bld) [Mass/Vol] 7.6 g/dL Low 11.5-15.5 [facility] Comment on above: Order Comment: Speci men Type: BLOOD SPECIMENOrdering Facility: [facility] Address: [address] [place] [address] Performed By: #### 5 8410-2 ####[facility] LABORATORYCLIA [id number] [address] [place] MCH (RBC) [Entitic mass] 30.2 pg Normal 26.0-34.0 [facility] Comment on above: Order Comment: Speci men Type: BLOOD SPECIMENOrdering Facility: [facility] Address: [address] [place] [address] Performed By: #### 5 8410-2 ####[facility] LABORATORYCLIA [id number] [address] [place] MCHC (RBC) [Mass/Vol] 31.4 g/dL Normal 30.5-36.0 [facility] Comment on above: Order Comment: Speci men Type: BLOOD SPECIMENOrdering Facility: [facility] Address: [address] [place] [address] Performed By: #### 5 8410-2 ####[facility] LABORATORYCLIA [id number] [address] OF [place] MCV (RBC) [Entitic vol] 96.0 fL Normal 80.0-100.0 [facility] Comment on above: Order Comment: Speci men Type: BLOOD SPECIMENOrdering Facility: [facility] Address: [address] [place] [address] Performed By: #### 5 8410-2 ####[facility] LABORATORYCLIA [id number] [address] [place] Nucleated RBC (Bld) [#/Vol] 0.03 10*3/uL High <0.01 [facility] Comment on above: Order Comment: Speci men Type: BLOOD SPECIMENOrdering Facility: [facility] Address: [address] [place] [address] Performed By: #### 5 8410-2 ####[facility] LABORATORYCLIA [id number] [place] [address] [place] Platelet mean volume (Bld) [Entitic vol] 10.3 fL Normal 9.0-12.7 [facility] Comment on above: Order Comment: Speci men Type: BLOOD SPECIMENOrdering Facility: [facility] Address: [address] [place] [address] Performed By: #### 5 8410-2 ####[facility] LABORATORYCLIA [id number] [place] [address] [place] Platelets (Bld) [#/Vol] 392 10*3/uL Normal 150-400 [facility] Comment on above: Order Comment: Speci men Type: BLOOD SPECIMENOrdering Facility: [facility] Address: [address] [place] [address] Performed By: #### 5 8410-2 ####[facility] LABORATORYCLIA [id number] [address] [place] RBC (Bld) [#/Vol] 2.52 10*6/uL Low 3.90-5.20 [facility] Comment on above: Order Comment: Speci men Type: BLOOD SPECIMENOrdering Facility: [facility] Address: [address] [place] [address] Performed By: #### 5 8410-2 ####[facility] LABORATORYCLIA [id number] [address] [place] WBC (Bld) [#/Vol] 8.49 10*3/uL Normal 3.70-11.00 [facility] Comment on above: Order Comment: Speci men Type: BLOOD SPECIMENOrdering Facility: [facility] Address: [address] [place] [address] Performed By: #### 5 8410-2 ####[facility] LABORATORYCLIA [id number] [address] OF [place] Magnesium [facility] 05-13 Magnesium [Mass/Vol] 1.9 mg/dL Normal 1.7-2.3 [facility] Comment on above: Order Comment: Speci men Type: BLOOD SPECIMENOrdering Facility: [facility] Address: [address] [place] [address] Performed By: #### 2 4321-2, , 2776-05 ####[facility] LABORATORYCLIA [id number] [place] [address] [place] Phosphate SerPl-mCncon 05-13 Phosphate [Mass/Vol] 2.2 mg/dL Low 2.7-4.8 [facility] Comment on above: Order Comment: Speci men Type: BLOOD SPECIMENOrdering Facility: [facility] Address: [address] [place] [address] Performed By: #### 2 4321-2, , 2776-05 ####[facility] LABORATORYCLIA [id number] [place] [address] [place] XR ABDOMEN 1V SUPINEon 05-13 XR ABDOMEN 1V SUPINE Normal [facility] Basic metabolic 2000 panelon 05-12-2024 Anion gap [Moles/Vol] 14 mmol/L Normal 8-15 [facility] Comment on above: Order Comment: Speci men Type: BLOOD SPECIMENOrdering Facility: [facility] Address: [address] [place] [address] Performed By: #### 2 4321-2 ####[facility] LABORATORYCLIA [id number] [place] [address] [place] Calcium [Mass/Vol] 8.2 mg/dL Low 8.5-10.2 [facility] Comment on above: Order Comment: Speci men Type: BLOOD SPECIMENOrdering Facility: [facility] Address: [address] [place] [address] Performed By: #### 2 4321-2 ####[facility] LABORATORYCLIA [id number] [place] [address] [place] Chloride [Moles/Vol] 105 mmol/L Normal 98-107 [facility] Comment on above: Order Comment: Speci men Type: BLOOD SPECIMENOrdering Facility: [facility] Address: [address] [place] [address] Performed By: #### 2 4321-2 ####[facility] LABORATORYCLIA [id number] [place] [id number] [place] CO2 [Moles/Vol] 17 mmol/L Low 22-30 [facility] Comment on above: Order Comment: Speci men Type: BLOOD SPECIMENOrdering Facility: [facility] Address: [address] [place] [address] Performed By: #### 2 4321-2 ####[facility] LABORATORYCLIA [id number] [address] [place] Creatinine [Mass/Vol] 0.54 mg/dL Low 0.58-0.96 [facility] Comment on above: Order Comment: Speci men Type: BLOOD SPECIMENOrdering Facility: [facility] Address: [address] [place] [address] Performed By: #### 2 4321-2 ####[facility] LABORATORYCLIA [id number] [address] Creatinine and Glomerular filtration rate.predicted panel (S/P/Bld) 92 mL/min/1.73m??? Normal >=60 [facility] Comment on above: Order Comment: Speci men Type: BLOOD SPECIMENOrdering Facility: [facility] Address: [address] [place] [address] Result Comment: Kaylene mated Glomerular Filtration Rate [...] actual GFR. Performed By: #### 2 4321-2 ####[facility] LABORATORYCLIA [id number] [address] [place] Glucose [Mass/Vol] 227 mg/dL High 74-99 [facility] Comment on above: Order Comment: Speci men Type: BLOOD SPECIMENOrdering Facility: [facility] Address: [address] [place] [address] Result Comment: The [place] [employer] (ADA) provides guidance for cutoff [...] Standards of Medical Care in Diabetes 2016, [place] [employer]. Diabetes Care. 2016.39(Suppl 1). Performed By: #### 2 4321-2 ####[facility] LABORATORYCLIA [id number] [place] [address] [place] Potassium [Moles/Vol] 3.7 mmol/L Normal 3.7-5.1 [facility] Comment on above: Order Comment: Bernardoi men Type: BLOOD SPECIMENOrdering Facility: [facility] Address: [address] [place] [address] Performed By: #### 2 4321-2 ####[facility] LABORATORYCLIA [id number] [place] [address] [place] Sodium [Moles/Vol] 136 mmol/L Normal 136-144 [facility] Comment on above: Order Comment: Speci men Type: BLOOD SPECIMENOrdering Facility: [facility] Address: [address] [place] [address] Performed By: #### 2 4321-2 ####[facility] LABORATORYCLIA [id number] [place] [address] [place] Urea nitrogen [Mass/Vol] 16 mg/dL Normal 7-21 [facility] Comment on above: Order Comment: Speci men Type: BLOOD SPECIMENOrdering Facility: [facility] Address: [address] [place] [address] Performed By: #### 2 1-2 ####[facility] LABORATORYCLIA [id number] [place] [address] [place] Anion gap [Moles/Vol] 15 mmol/L Normal 8-15 [facility] Comment on above: Order Comment: Speci men Type: BLOOD SPECIMENOrdering Facility: [facility] Address: [address] [place] [address] Performed By: #### 2 4321-2, , 2776-05 ####[facility] LABORATORYCLIA [id number] [place] [address] [place] Calcium [Mass/Vol] 7.7 mg/dL Low 8.5-10.2 [facility] Comment on above: Order Comment: Speci men Type: BLOOD SPECIMENOrdering Facility: [facility] Address: [address] [place] [address] Performed By: #### 2 4320-2, , 2776-05 ####[facility] LABORATORYCLIA [id number] [place] [address] [place] Chloride [Moles/Vol] 108 mmol/L High 98-107 [facility] Comment on above: Order Comment: Speci men Type: BLOOD SPECIMENOrdering Facility: [facility] Address: [address] [place] [address] Performed By: #### 2 4321-2, , 2776-05 ####[facility] LABORATORYCLIA [id number] [place] [id number] [place] CO2 [Moles/Vol] 17 mmol/L Low 22-30 [facility] Comment on above: Order Comment: Speci men Type: BLOOD SPECIMENOrdering Facility: [facility] Address: [address] [place] [address] Performed By: #### 2 4321-2, , 2776-05 ####[facility] LABORATORYCLIA [id number] [place] [address] [place] Creatinine [Mass/Vol] 0.62 mg/dL Normal 0.58-0.96 [facility] Comment on above: Order Comment: Helen rg Type: BLOOD SPECIMENOrdering Facility: [facility] Address: [address] [place] [address] Performed By: #### 2 4321-2, , 2776-05 ####[facility] LABORATORYCLIA [id number] [address] OF [facility] Creatinine and Glomerular filtration rate.predicted panel (S/P/Bld) 89 mL/min/1.73m??? Normal >=60 [facility] Comment on above: Order Comment: Helen rg Type: BLOOD SPECIMENOrdering Facility: [facility] Address: [address] [place] [address] Result Comment: Kaylene mated Glomerular Filtration Rate [...] 2 4321-2, , 2776-05 ####[facility] LABORATORYCLIA [id number] [place] [address] [place] Glucose [Mass/Vol] 140 mg/dL High 74-99 [facility] Comment on above: Order Comment: Helen rg Type: BLOOD SPECIMENOrdering Facility: [facility] Address: [address] [place] [address] Result Comment: The [place] Diabetes [employer] (ADA) provides guidance for cutoff [...] Standards of Medical Care in Diabetes 2016, [place] [employer]. Diabetes Care. 2016.39(Suppl 1). Performed By: #### 2 4321-2, , 2776-05 ####[facility] LABORATORYCLIA [id number] [place] [address] [place] Potassium [Moles/Vol] 3.4 mmol/L Low 3.7-5.1 [facility] Comment on above: Order Comment: Speci men Type: BLOOD SPECIMENOrdering Facility: [facility] Address: [address] [place] [address] Performed By: #### 2 4321-2, , 2776-05 ####[facility] LABORATORYCLIA [id number] [address] STATES OF [facility] Sodium [Moles/Vol] 140 mmol/L Normal 136-144 [facility] Comment on above: Order Comment: Speci men Type: BLOOD SPECIMENOrdering Facility: [facility] Address: [address] [place] [address] Performed By: #### 2 4321-2, , 2776-05 ####[facility] LABORATORYCLIA [id number] [address] [place] Urea nitrogen [Mass/Vol] 16 mg/dL Normal 7-21 [facility] Comment on above: Order Comment: Speci men Type: BLOOD SPECIMENOrdering Facility: [facility] Address: [address] [place] [address] Performed By: #### 2 4321-2, , 2776-05 ####[facility] LABORATORYCLIA [id number] [place] [id number] [place] CASE MANAGEMon 05-12-2024 CASE MANAGEM Normal [facility] CBC panel Auto (Bld)on 05-12 Erythrocyte distribution width (RBC) [Ratio] 15.4 % High 11.5-15.0 [facility] Comment on above: Order Comment: Speci men Type: BLOOD SPECIMENOrdering Facility: [facility] Address: [address] [place] [address] Performed By: #### 5 8410-2 ####[facility] LABORATORYCLIA [id number] [address] Hematocrit (Bld) [Volume fraction] 25.1 % Low 36.0-46.0 [facility] Comment on above: Order Comment: Speci men Type: BLOOD SPECIMENOrdering Facility: [facility] Address: [address] [place] [address] Performed By: #### 5 8410-2 ####[facility] LABORATORYCLIA [id number] [address] OF [facility] Hemoglobin (Bld) [Mass/Vol] 8.0 g/dL Low 11.5-15.5 [facility] Comment on above: Order Comment: Speci men Type: BLOOD SPECIMENOrdering Facility: [facility] Address: [address] [place] [address] Performed By: #### 5 8410-2 ####[facility] LABORATORYCLIA [id number] [address] MCH (RBC) [Entitic mass] 30.4 pg Normal 26.0-34.0 [facility] Comment on above: Order Comment: Speci men Type: BLOOD SPECIMENOrdering Facility: [facility] Address: [address] [place] [address] Performed By: #### 5 8410-2 ####[facility] LABORATORYCLIA [id number] [address] OF [facility] MCHC (RBC) [Mass/Vol] 31.9 g/dL Normal 30.5-36.0 [facility] Comment on above: Order Comment: Speci men Type: BLOOD SPECIMENOrdering Facility: [facility] Address: [address] [place] [address] Performed By: #### 5 8410-2 ####[facility] LABORATORYCLIA [id number] [address] MCV (RBC) [Entitic vol] 95.4 fL Normal 80.0-100.0 [facility] Comment on above: Order Comment: Speci men Type: BLOOD SPECIMENOrdering Facility: [facility] Address: [address] [place] [address] Performed By: #### 5 8410-2 ####[facility] LABORATORYCLIA [id number] [place] [address] [place] Platelet mean volume (Bld) [Entitic vol] 10.3 fL Normal 9.0-12.7 [facility] Comment on above: Order Comment: Speci men Type: BLOOD SPECIMENOrdering Facility: [facility] Address: [address] [place] [address] Performed By: #### 5 8410-2 ####[facility] LABORATORYCLIA [id number] [place] [address] [place] Platelets (Bld) [#/Vol] 373 10*3/uL Normal 150-400 [facility] Comment on above: Order Comment: Speci men Type: BLOOD SPECIMENOrdering Facility: [facility] Address: [address] [place] [address] Performed By: #### 5 8410-2 ####[facility] LABORATORYCLIA [id number] [place] [address] [place] RBC (Bld) [#/Vol] 2.63 10*6/uL Low 3.90-5.20 [facility] Comment on above: Order Comment: Speci men Type: BLOOD SPECIMENOrdering Facility: [facility] Address: [address] [place] [address] Performed By: #### 5 8410-2 ####[facility] LABORATORYCLIA [id number] [place] [address] [place] WBC (Bld) [#/Vol] 8.48 10*3/uL Normal 3.70-11.00 [facility] Comment on above: Order Comment: Speci men Type: BLOOD SPECIMENOrdering Facility: [facility] Address: [address] [place] [address] Performed By: #### 5 8410-2 ####[facility] LABORATORYCLIA [id number] [address] [place] Erythrocyte distribution width (RBC) [Ratio] 15.4 % High 11.5-15.0 [facility] Comment on above: Order Comment: Speci men Type: BLOOD SPECIMENOrdering Facility: [facility] Address: [address] [place] [address] Performed By: #### 5 8410-2 ####[facility] LABORATORYCLIA [id number] [address] STATES OF [facility] Hematocrit (Bld) [Volume fraction] 22.9 % Low 36.0-46.0 [facility] Comment on above: Order Comment: Speci men Type: BLOOD SPECIMENOrdering Facility: [facility] Address: [address] [place] [address] Performed By: #### 5 8410-2 ####[facility] LABORATORYCLIA [id number] [address] OF [facility] Hemoglobin (Bld) [Mass/Vol] 7.2 g/dL Low 11.5-15.5 [facility] Comment on above: Order Comment: Speci men Type: BLOOD SPECIMENOrdering Facility: [facility] Address: [address] [place] [address] Performed By: #### 5 8410-2 ####[facility] LABORATORYCLIA [id number] [address] [place] MCH (RBC) [Entitic mass] 30.4 pg Normal 26.0-34.0 [facility] Comment on above: Order Comment: Speci men Type: BLOOD SPECIMENOrdering Facility: [facility] Address: [address] [place] [address] Performed By: #### 5 8410-2 ####[facility] LABORATORYCLIA [id number] [address] [place] MCHC (RBC) [Mass/Vol] 31.4 g/dL Normal 30.5-36.0 [facility] Comment on above: Order Comment: Speci men Type: BLOOD SPECIMENOrdering Facility: [facility] Address: [address] [place] [address] Performed By: #### 5 8410-2 ####[facility] LABORATORYCLIA [id number] [address] MCV (RBC) [Entitic vol] 96.6 fL Normal 80.0-100.0 [facility] Comment on above: Order Comment: Speci men Type: BLOOD SPECIMENOrdering Facility: [facility] Address: [address] [place] [address] Performed By: #### 5 8410-2 ####[facility] LABORATORYCLIA [id number] [address] Nucleated RBC (Bld) [#/Vol] 10*3/uL Normal <0.01 [facility] Comment on above: Order Comment: Speci men Type: BLOOD SPECIMENOrdering Facility: [facility] Address: [address] [place] [address] Performed By: #### 5 8410-2 ####[facility] LABORATORYCLIA [id number] [address] Platelet mean volume (Bld) [Entitic vol] 10.6 fL Normal 9.0-12.7 [facility] Comment on above: Order Comment: Speci men Type: BLOOD SPECIMENOrdering Facility: [facility] Address: [address] [place] [address] Performed By: #### 5 8410-2 ####[facility] LABORATORYCLIA [id number] [address] Platelets (Bld) [#/Vol] 286 10*3/uL Normal 150-400 [facility] Comment on above: Order Comment: Speci men Type: BLOOD SPECIMENOrdering Facility: [facility] Address: [address] [place] [address] Performed By: #### 5 8410-2 ####[facility] LABORATORYCLIA [id number] [address] [place] RBC (Bld) [#/Vol] 2.37 10*6/uL Low 3.90-5.20 [facility] Comment on above: Order Comment: Speci men Type: BLOOD SPECIMENOrdering Facility: [facility] Address: [address] [place] [address] Performed By: #### 5 8410-2 ####[facility] LABORATORYCLIA [id number] [place] [address] [place] [facility] WBC (Bld) [#/Vol] 9.72 10*3/uL Normal 3.70-11.00 [facility] Comment on above: Order Comment: Speci men Type: BLOOD SPECIMENOrdering Facility: [facility] Address: [address] [place] [address] Performed By: #### 5 8410-2 ####[facility] LABORATORYCLIA [id number] [address] [place] CONSULTon 05-12-2024 CONSULT Normal [facility] Calcium.ionized [Moles/Vol]o n 05-12-2024 Calcium.ionized (BldV) [Mass/Vol] 1.15 mmol/L Normal 1.08-1.30 [facility] Comment on above: Order Comment: Speci men Type: BLOOD SPECIMENOrdering Facility: [facility] Address: [address] [place] [address] Performed By: #### 1 995-0 ####[facility] LABORATORYCLIA [id number] [address] Calcium.ionized adjusted to pH 7.4 (Bld) [Moles/Vol] 1.14 mmol/L Normal 1.08-1.30 [facility] Comment on above: Order Comment: Speci men Type: BLOOD SPECIMENOrdering Facility: [facility] Address: [address] [place] [address] Performed By: #### 1 995-0 ####[facility] LABORATORYCLIA [id number] [address] [place] ECG COMPLETEon 05-12-2024 ECG COMPLETE Normal [facility] Magnesium SerPl-mCncon 05-12 Magnesium [Mass/Vol] 1.7 mg/dL Normal 1.7-2.3 [facility] Comment on above: Order Comment: Speci men Type: BLOOD SPECIMENOrdering Facility: [facility] Address: [address] [place] [address] Performed By: #### 2 4321-2, 92619-4, 2777-1 ####[facility] LABORATORYCLIA [id number] [address] [place] NURSING PROGon 05-12-2024 NURSING PROG Normal [facility] NUTRITIONon 05-12-2024 NUTRITION Normal [facility] Phosphate [Mass/Vol] 2.9 mg/dL Normal 2.7-4.8 [facility] Comment on above: Order Comment: Speci men Type: BLOOD SPECIMENOrdering Facility: [facility] Address: [address] [place] [address] Performed By: #### 2 4321-2, 42335-6, 2777-1 ####[facility] LABORATORYCLIA [id number] [address] [place] THERAPY NTon 05-12-2024 THERAPY NT Normal [facility] ARTERIAL BLOOD GASESon 05-11 Base deficit (BldA) [Moles/Vol] -5 mmol/L Low -2-0 [facility] Comment on above: Order Comment: Speci men Type: ARTERIAL BLOOD SPECIMENOrdering Facility: [facility] Address: [address] [place] [address] Performed By: #### A LLBG ####[facility] LABORATORYCLIA [id number] [address] [place] Body temperature 98.6 [degF] Normal [facility] Comment on above: Order Comment: Speci men Type: ARTERIAL BLOOD SPECIMENOrdering Facility: [facility] Address: [address] [place] [address] Performed By: #### A LLBG ####[facility] LABORATORYCLIA [id number] [address] STATES OF [facility] Calcium.ionized (BldV) [Mass/Vol] 1.16 mmol/L Normal 1.08-1.30 [facility] Comment on above: Order Comment: Speci men Type: ARTERIAL BLOOD SPECIMENOrdering Facility: [facility] Address: [address] [place] [address] Performed By: #### A LLBG ####[facility] LABORATORYCLIA [id number] [address] Calcium.ionized adjusted to pH 7.4 (BldA) [Moles/Vol] 1.19 mmol/L Normal 1.08-1.30 [facility] Comment on above: Order Comment: Speci men Type: ARTERIAL BLOOD SPECIMENOrdering Facility: [facility] Address: [address] [place] [address] Performed By: #### A LLBG ####[facility] LABORATORYCLIA [id number] [address] OF [facility] Carboxyhemoglobin (BldA) [Mass fraction] 1.5 % Normal 0.0-2.0 [facility] Comment on above: Order Comment: Speci men Type: ARTERIAL BLOOD SPECIMENOrdering Facility: [facility] Address: [address] [place] [address] Result Comment: Carb oxyhemoglobin Reference Range for Smokers: 2.0-8.0% Performed By: #### A LLBG ####[facility] LABORATORYCLIA [id number] [address] [place] Chloride [Moles/Vol] 107 mmol/L High 97-105 [facility] Comment on above: Order Comment: Speci men Type: ARTERIAL BLOOD SPECIMENOrdering Facility: [facility] Address: [address] [place] [address] Performed By: #### A LLBG ####[facility] LABORATORYCLIA [id number] [address] [place] CO2 (Bld) [Partial pressure] 26 mm Hg Low 36-46 [facility] Comment on above: Order Comment: Speci men Type: ARTERIAL BLOOD SPECIMENOrdering Facility: [facility] Address: [address] [place] [address] Performed By: #### A LLBG ####[facility] LABORATORYCLIA [id number] [address] [place] Glucose [Mass/Vol] 178 mg/dL High 60-105 [facility] Comment on above: Order Comment: Speci men Type: ARTERIAL BLOOD SPECIMENOrdering Facility: [facility] Address: [address] [place] [address] Performed By: #### A LLBG ####[facility] LABORATORYCLIA [id number] [place] [address] [place] HCO3 (Bld) [Moles/Vol] 18 mmol/L Low 22-26 [facility] Comment on above: Order Comment: Speci men Type: ARTERIAL BLOOD SPECIMENOrdering Facility: [facility] Address: [address] [place] [address] Performed By: #### A LLBG ####[facility] LABORATORYCLIA [id number] [address] [place] Hematocrit (Bld) [Volume fraction] 25.7 % Low 36.0-46.0 [facility] Comment on above: Order Comment: Speci men Type: ARTERIAL BLOOD SPECIMENOrdering Facility: [facility] Address: [address] [place] [address] Performed By: #### A LLBG ####[facility] LABORATORYCLIA [id number] [place] [address] [place] Hemoglobin (Bld) [Mass/Vol] 8.3 g/dL Low 11.5-15.5 [facility] Comment on above: Order Comment: Speci men Type: ARTERIAL BLOOD SPECIMENOrdering Facility: [facility] Address: [address] [place] [address] Performed By: #### A LLBG ####[facility] LABORATORYCLIA [id number] [place] [address] [place] Lactate [Moles/Vol] 1.0 mmol/L Normal 0.5-2.2 [facility] Comment on above: Order Comment: Speci men Type: ARTERIAL BLOOD SPECIMENOrdering Facility: [facility] Address: [address] [place] [address] Performed By: #### A LLBG ####[facility] LABORATORYCLIA [id number] [address] [place] Methemoglobin (Bld) [Mass fraction] 1.1 % Normal 0.0-1.5 [facility] Comment on above: Order Comment: Speci men Type: ARTERIAL BLOOD SPECIMENOrdering Facility: [facility] Address: [address] [place] [address] Performed By: #### A LLBG ####[facility] LABORATORYCLIA [id number] [address] O2 THERAPY RA=Room Air Normal [facility] Comment on above: Order Comment: Speci men Type: ARTERIAL BLOOD SPECIMENOrdering Facility: [facility] Address: [address] [place] [address] Performed By: #### A LLBG ####[facility] LABORATORYCLIA [id number] [address] [place] Oxygen (Bld) [Partial pressure] 100 mm Hg High 85-95 [facility] Comment on above: Order Comment: Speci men Type: ARTERIAL BLOOD SPECIMENOrdering Facility: [facility] Address: [address] [place] [address] Performed By: #### A LLBG ####[facility] LABORATORYCLIA [id number] [address] [place] Oxyhemoglobin (BldA) [Mass fraction] 95 % Normal 95-98 [facility] Comment on above: Order Comment: Speci men Type: ARTERIAL BLOOD SPECIMENOrdering Facility: [facility] Address: [address] [place] [address] Performed By: #### A LLBG ####[facility] LABORATORYCLIA [id number] [place] [address] [place] pH (Bld) 7.46 [pH] High 7.35-7.45 [facility] Comment on above: Order Comment: Speci men Type: ARTERIAL BLOOD SPECIMENOrdering Facility: [facility] Address: [address] [place] [address] Performed By: #### A LLBG ####[facility] LABORATORYCLIA [id number] [address] PO2 / FIO2 RATIO 476 mmHg Normal >300 [facility] Comment on above: Order Comment: Speci men Type: ARTERIAL BLOOD SPECIMENOrdering Facility: [facility] Address: [address] [place] [address] Performed By: #### A LLBG ####[facility] LABORATORYCLIA [id number] [address] [place] Potassium [Moles/Vol] 3.9 mmol/L Normal 3.5-5.0 [facility] Comment on above: Order Comment: Speci men Type: ARTERIAL BLOOD SPECIMENOrdering Facility: [facility] Address: [address] [place] [address] Performed By: #### A LLBG ####[facility] LABORATORYCLIA [id number] [address] [place] Sodium [Moles/Vol] 136 mmol/L Normal 136-144 [facility] Comment on above: Order Comment: Speci men Type: ARTERIAL BLOOD SPECIMENOrdering Facility: [facility] Address: [address] [place] [address] Performed By: #### A LLBG ####[facility] LABORATORYCLIA [id number] [place] [address] [place] Basic metabolic 2000 panelon 05-11-2024 Anion gap [Moles/Vol] 13 mmol/L Normal 8-15 [facility] Comment on above: Order Comment: Speci men Type: BLOOD SPECIMENOrdering Facility: [facility] Address: [address] [place] [address] Performed By: #### 2 4321-2, 65064-1, 2777-1 ####[facility] LABORATORYCLIA [id number] [place] [address] [place] Calcium [Mass/Vol] 8.3 mg/dL Low 8.5-10.2 [facility] Comment on above: Order Comment: Speci men Type: BLOOD SPECIMENOrdering Facility: [facility] Address: [address] [place] [address] Performed By: #### 2 4321-2, , 2776-05 ####[facility] LABORATORYCLIA [id number] [place] [address] [place] Chloride [Moles/Vol] 104 mmol/L Normal 98-107 [facility] Comment on above: Order Comment: Speci men Type: BLOOD SPECIMENOrdering Facility: [facility] Address: [address] [place] [address] Performed By: #### 2 4321-2, , 2776-05 ####[facility] LABORATORYCLIA [id number] [place] [address] [place] CO2 [Moles/Vol] 21 mmol/L Low 22-30 [facility] Comment on above: Order Comment: Speci men Type: BLOOD SPECIMENOrdering Facility: [facility] Address: [address] [place] [address] Performed By: #### 2 4321-2, , 2776-05 ####[facility] LABORATORYCLIA [id number] [place] [address] [place] Creatinine [Mass/Vol] 0.54 mg/dL Low 0.58-0.96 [facility] Comment on above: Order Comment: Speci men Type: BLOOD SPECIMENOrdering Facility: [facility] Address: [address] [place] [address] Performed By: #### 2 4321-2, , 2776-05 ####[facility] LABORATORYCLIA [id number] [address] [place] Creatinine and Glomerular filtration rate.predicted panel (S/P/Bld) 92 mL/min/1.73m??? Normal >=60 [facility] Comment on above: Order Comment: Helen rg Type: BLOOD SPECIMENOrdering Facility: [facility] Address: [address] [id number] Result Comment: Kaylene mated Glomerular Filtration Rate [...] actual GFR. Performed By: #### 2 4321-2, 04638-4, 2776-05 ####[facility] LABORATORYCLIA [id number] [place] [id number] [place] Glucose [Mass/Vol] 134 mg/dL High 74-99 [facility] Comment on above: Order Comment: Helen rg Type: BLOOD SPECIMENOrdering Facility: [facility] Address: [address] [place] [address] Result Comment: The [place] [employer] (ADA) provides guidance for cutoff [...] Standards of Medical Care in Diabetes 2016, [place] [employer]. Diabetes Care. 2016.39(Suppl 1). Performed By: #### 2 4321-2, , 2776-05 ####[facility] LABORATORYCLIA [id number] [place] [id number] [place] Potassium [Moles/Vol] 3.8 mmol/L Normal 3.7-5.1 [facility] Comment on above: Order Comment: Helen rg Type: BLOOD SPECIMENOrdering Facility: [facility] Address: [address] [place] [address] Performed By: #### 2 4321-2, 66667-3, 27771 ####[facility] LABORATORYCLIA [id number] [place] [address] [place] [facility] Sodium [Moles/Vol] 138 mmol/L Normal 136-144 [facility] Comment on above: Order Comment: Speci men Type: BLOOD SPECIMENOrdering Facility: [facility] Address: [address] [place] [address] Performed By: #### 2 4321-2, , 2776-05 ####[facility] LABORATORYCLIA [id number] [place] [id number] [place] Urea nitrogen [Mass/Vol] 9 mg/dL Normal 7-21 [facility] Comment on above: Order Comment: Speci men Type: BLOOD SPECIMENOrdering Facility: [facility] Address: [address] [place] [address] Performed By: #### 2 4321-2, , 27711-28 ####[facility] LABORATORYCLIA [id number] [address] [place] CASE MANAGEMon 05-11-2024 CASE MANAGEM Normal [facility] CBC panel Auto (Bld)on 05-11 Erythrocyte distribution width (RBC) [Ratio] 15.2 % High 11.5-15.0 [facility] Comment on above: Order Comment: Speci men Type: BLOOD SPECIMENOrdering Facility: [facility] Address: [address] [place] [address] Performed By: #### 5 8410-2 ####[facility] LABORATORYCLIA [id number] [address] STATES OF [facility] Hematocrit (Bld) [Volume fraction] 26.1 % Low 36.0-46.0 [facility] Comment on above: Order Comment: Speci men Type: BLOOD SPECIMENOrdering Facility: [facility] Address: [address] [place] [address] Performed By: #### 5 8410-2 ####[facility] LABORATORYCLIA [id number] [address] OF [facility] Hemoglobin (Bld) [Mass/Vol] 8.5 g/dL Low 11.5-15.5 [facility] Comment on above: Order Comment: Speci men Type: BLOOD SPECIMENOrdering Facility: [facility] Address: [address] [place] [address] Performed By: #### 5 8410-2 ####[facility] LABORATORYCLIA [id number] [address] MCH (RBC) [Entitic mass] 30.1 pg Normal 26.0-34.0 [facility] Comment on above: Order Comment: Speci men Type: BLOOD SPECIMENOrdering Facility: [facility] Address: [address] [place] [address] Performed By: #### 5 8410-2 ####[facility] LABORATORYCLIA [id number] [address] MCHC (RBC) [Mass/Vol] 32.6 g/dL Normal 30.5-36.0 [facility] Comment on above: Order Comment: Speci men Type: BLOOD SPECIMENOrdering Facility: [facility] Address: [address] [place] [address] Performed By: #### 5 8410-2 ####[facility] LABORATORYCLIA [id number] [address] MCV (RBC) [Entitic vol] 92.6 fL Normal 80.0-100.0 [facility] Comment on above: Order Comment: Speci men Type: BLOOD SPECIMENOrdering Facility: [facility] Address: [address] [place] [address] Performed By: #### 5 8410-2 ####[facility] LABORATORYCLIA [id number] [address] Nucleated RBC (Bld) [#/Vol] 0.03 10*3/uL High <0.01 [facility] Comment on above: Order Comment: Speci men Type: BLOOD SPECIMENOrdering Facility: [facility] Address: [address] [place] [address] Performed By: #### 5 8410-2 ####[facility] LABORATORYCLIA [id number] [place] [address] [place] Platelet mean volume (Bld) [Entitic vol] 10.8 fL Normal 9.0-12.7 [facility] Comment on above: Order Comment: Speci men Type: BLOOD SPECIMENOrdering Facility: [facility] Address: [address] [place] [address] Performed By: #### 5 8410-2 ####[facility] LABORATORYCLIA [id number] [address] [place] Platelets (Bld) [#/Vol] 316 10*3/uL Normal 150-400 [facility] Comment on above: Order Comment: Speci men Type: BLOOD SPECIMENOrdering Facility: [facility] Address: [address] [place] [address] Performed By: #### 5 8410-2 ####[facility] LABORATORYCLIA [id number] [place] [address] [place] RBC (Bld) [#/Vol] 2.82 10*6/uL Low 3.90-5.20 [facility] Comment on above: Order Comment: Speci men Type: BLOOD SPECIMENOrdering Facility: [facility] Address: [address] [place] [address] Performed By: #### 5 8410-2 ####[facility] LABORATORYCLIA [id number] [address] [place] WBC (Bld) [#/Vol] 12.73 10*3/uL High 3.70-11.00 [facility] Comment on above: Order Comment: Speci men Type: BLOOD SPECIMENOrdering Facility: [facility] Address: [address] [place] [address] Performed By: #### 5 8410-2 ####[facility] LABORATORYCLIA [id number] [address] [place] Calcium.ionized [Moles/Vol]o n 05-11-2024 Calcium.ionized (BldV) [Mass/Vol] 1.11 mmol/L Normal 1.08-1.30 [facility] Comment on above: Order Comment: Speci men Type: BLOOD SPECIMENOrdering Facility: [facility] Address: [address] [place] [address] Performed By: #### 1 995-0 ####[facility] LABORATORYCLIA [id number] [place] [id number] [place] [facility] Calcium.ionized adjusted to pH 7.4 (Bld) [Moles/Vol] 1.13 mmol/L Normal 1.08-1.30 [facility] Comment on above: Order Comment: Speci men Type: BLOOD SPECIMENOrdering Facility: [facility] Address: [address] [place] [address] Performed By: #### 1 995-0 ####[facility] LABORATORYCLIA [id number] [address] [place] Gas and Carbon monoxide pane l (BldV)on 05-11-2024 BASE DEFICIT, VENOUS >-1 Normal -2-0 [facility] Comment on above: Order Comment: Speci men Type: VENOUS BLOOD SPECIMENOrdering Facility: [facility] Address: [address] [place] [address] Performed By: #### 2 4344-4 ####[facility] LABORATORYCLIA [id number] [place] [id number] [place] Body temperature 97.7 [degF] Normal [facility] Comment on above: Order Comment: Speci men Type: VENOUS BLOOD SPECIMENOrdering Facility: [facility] Address: [address] [place] [address] Performed By: #### 2 4344-4 ####[facility] LABORATORYCLIA [id number] [address] [place] Calcium.ionized (BldV) [Mass/Vol] 1.13 mmol/L Normal 1.08-1.30 [facility] Comment on above: Order Comment: Speci men Type: VENOUS BLOOD SPECIMENOrdering Facility: [facility] Address: [address] [place] [address] Performed By: #### 2 4344-4 ####[facility] LABORATORYCLIA [id number] [place] [address] [place] [facility] Calcium.ionized adjusted to pH 7.4 (BldA) [Moles/Vol] 1.16 mmol/L Normal 1.08-1.30 [facility] Comment on above: Order Comment: Speci men Type: VENOUS BLOOD SPECIMENOrdering Facility: [facility] Address: [address] [place] [address] Performed By: #### 2 4344-4 ####[facility] LABORATORYCLIA [id number] [address] [place] Carboxyhemoglobin (BldV) [Mass fraction] 1.2 % Normal 0.0-2.0 [facility] Comment on above: Order Comment: Speci men Type: VENOUS BLOOD SPECIMENOrdering Facility: [facility] Address: [address] [place] [address] Result Comment: Carb oxyhemoglobin Reference Range for Smokers: 2.0-8.0% Performed By: #### 2 4344-4 ####[facility] LABORATORYCLIA [id number] [address] [place] Chloride [Moles/Vol] 106 mmol/L High 97-105 [facility] Comment on above: Order Comment: Speci men Type: VENOUS BLOOD SPECIMENOrdering Facility: [facility] Address: [address] [place] [address] Performed By: #### 2 4344-4 ####[facility] LABORATORYCLIA [id number] [place] [address] [place] CO2 (BldV) [Partial pressure] 34 mm[Hg] Low 42-55 [facility] Comment on above: Order Comment: Speci men Type: VENOUS BLOOD SPECIMENOrdering Facility: [facility] Address: [address] [place] [address] Performed By: #### 2 4344-4 ####[facility] LABORATORYCLIA [id number] [address] STATES OF [facility] CO2 adjusted to patient's actual temperature (BldV) [Partial pressure] 33 mmHg Low 42-55 [facility] Comment on above: Order Comment: Speci men Type: VENOUS BLOOD SPECIMENOrdering Facility: [facility] Address: [address] [place] [address] Performed By: #### 2 4344-4 ####[facility] LABORATORYCLIA [id number] [address] [place] Glucose [Mass/Vol] 158 mg/dL High 60-105 [facility] Comment on above: Order Comment: Speci men Type: VENOUS BLOOD SPECIMENOrdering Facility: [facility] Address: [address] [place] [address] Performed By: #### 2 4344-4 ####[facility] LABORATORYCLIA [id number] [address] [place] HCO3 (Bld) [Moles/Vol] 23 mmol/L Low 24-28 [facility] Comment on above: Order Comment: Speci men Type: VENOUS BLOOD SPECIMENOrdering Facility: [facility] Address: [address] [place] [address] Performed By: #### 2 4344-4 ####[facility] LABORATORYCLIA [id number] [address] [place] Hematocrit (Bld) [Volume fraction] 26.6 % Low 36.0-46.0 [facility] Comment on above: Order Comment: Speci men Type: VENOUS BLOOD SPECIMENOrdering Facility: [facility] Address: [address] [place] [address] Performed By: #### 2 4344-4 ####[facility] LABORATORYCLIA [id number] [address] [place] Hemoglobin (Bld) [Mass/Vol] 8.6 g/dL Low 11.5-15.5 [facility] Comment on above: Order Comment: Speci men Type: VENOUS BLOOD SPECIMENOrdering Facility: [facility] Address: [address] [place] [address] Performed By: #### 2 4344-4 ####[facility] LABORATORYCLIA [id number] [place] [id number] [place] Lactate [Moles/Vol] 1.0 mmol/L Normal 0.5-2.2 [facility] Comment on above: Order Comment: Speci men Type: VENOUS BLOOD SPECIMENOrdering Facility: [facility] Address: [address] [place] [address] Performed By: #### 2 4344-4 ####[facility] LABORATORYCLIA [id number] [address] [place] Methemoglobin (Bld) [Mass fraction] 0.4 % Normal 0.0-1.5 [facility] Comment on above: Order Comment: Speci men Type: VENOUS BLOOD SPECIMENOrdering Facility: [facility] Address: [address] [place] [address] Performed By: #### 2 4344-4 ####[facility] LABORATORYCLIA [id number] [address] O2 THERAPY RA=Room Air Normal [facility] Comment on above: Order Comment: Speci men Type: VENOUS BLOOD SPECIMENOrdering Facility: [facility] Address: [address] [place] [address] Performed By: #### 2 4344-4 ####[facility] LABORATORYCLIA [id number] [address] [place] Oxygen (BldV) [Partial pressure] 76 mm[Hg] High 35-45 [facility] Comment on above: Order Comment: Speci men Type: VENOUS BLOOD SPECIMENOrdering Facility: [facility] Address: [address] [place] [address] Performed By: #### 2 4344-4 ####[facility]ORATORYCLIA [id number] [address] [place] Oxygen adjusted to patient's actual temperature (BldV) [Partial pressure] 74 mmHg High 35-45 [facility] Comment on above: Order Comment: Speci men Type: VENOUS BLOOD SPECIMENOrdering Facility: [facility] Address: [address] [place] [address] Performed By: #### 2 4344-4 ####[facility] LABORATORYCLIA [id number] [address] [place] Oxygen saturation in Venous blood 93 % High 60-85 [facility] Comment on above: Order Comment: Speci men Type: VENOUS BLOOD SPECIMENOrdering Facility: [facility] Address: [address] [place] [address] Performed By: #### 2 4344-4 ####[facility] LABORATORYCLIA [id number] [address] Oxyhemoglobin (BldV) [Mass fraction] 92 % High 60-85 [facility] Comment on above: Order Comment: Speci men Type: VENOUS BLOOD SPECIMENOrdering Facility: [facility] Address: [address] [place] [address] Performed By: #### 2 4344-4 ####[facility] LABORATORYCLIA [id number] [place] [address] [place] pH (BldV) 7.45 [pH] High 7.32-7.42 [facility] Comment on above: Order Comment: Speci men Type: VENOUS BLOOD SPECIMENOrdering Facility: [facility] Address: [address] [place] [address] Performed By: #### 2 4344-4 ####[facility] LABORATORYCLIA [id number] [address] [place] pH adjusted to patient's actual temperature (BldV) 7.46 High 7.32-7.42 [facility] Comment on above: Order Comment: Speci men Type: VENOUS BLOOD SPECIMENOrdering Facility: [facility] Address: [address] [place] [address] Performed By: #### 2 4344-4 ####[facility] LABORATORYCLIA [id number] [place] [address] [place] Potassium [Moles/Vol] 3.8 mmol/L Normal 3.5-5.0 [facility] Comment on above: Order Comment: Speci men Type: VENOUS BLOOD SPECIMENOrdering Facility: [facility] Address: [address] [place], [place] [address] Performed By: #### 2 4344-4 ####[facility] LABORATORYCLIA [id number] [place] [address] [place] Sodium [Moles/Vol] 136 mmol/L Normal 136-144 [facility] Comment on above: Order Comment: Speci men Type: VENOUS BLOOD SPECIMENOrdering Facility: [facility] Address: [address] [place] [address] Performed By: #### 2 4344-4 ####[facility] LABORATORYCLIA [id number] [address] [place] Magnesium SerPl[facility] 05-11 Magnesium [Mass/Vol] 1.8 mg/dL Normal 1.7-2.3 [facility] Comment on above: Order Comment: Speci men Type: BLOOD SPECIMENOrdering Facility: [facility] Address: [address] [place] [address] Performed By: #### 2 4321-2, , 2777-1 ####[facility] LABORATORYCLIA [id number] [address] [place] NURSING PROGon 05-11-2024 NURSING PROG Normal [facility] Phosphate SerPl-ncon 05-11 Phosphate [Mass/Vol] 2.6 mg/dL Low 2.7-4.8 [facility] Comment on above: Order Comment: Speci men Type: BLOOD SPECIMENOrdering Facility: [facility] Address: [address] [place] [address] Performed By: #### 2 4321-2, 91082-7, 2777-1 ####[facility] LABORATORYCLIA [id number] [address] [place] THERAPY NTon 05-11-2024 THERAPY NT Normal [facility] XR ABDOMEN 1V SUPINEon 05-11 XR ABDOMEN 1V SUPINE Normal [facility] XR CHEST 1V FRONTALon 2023 XR CHEST 1V FRONTAL Normal [facility] Basic metabolic 2000 panelon 05-10-2024 Anion gap [Moles/Vol] 9 mmol/L Normal 8-15 [facility] Comment on above: Order Comment: Speci men Type: BLOOD SPECIMENOrdering Facility: [facility] Address: [address] [place] [address] Performed By: #### 2 4321-2, , 2776-05 ####[facility] LABORATORYCLIA [id number] [place] [address] [place] Calcium [Mass/Vol] 8.2 mg/dL Low 8.5-10.2 [facility] Comment on above: Order Comment: Speci men Type: BLOOD SPECIMENOrdering Facility: [facility] Address: [address] [place] [address] Performed By: #### 2 4321-2, , 2776-05 ####[facility] LABORATORYCLIA [id number] [place] [address] [place] Chloride [Moles/Vol] 103 mmol/L Normal 98-107 [facility] Comment on above: Order Comment: Speci men Type: BLOOD SPECIMENOrdering Facility: [facility] Address: [address] [place] [address] Performed By: #### 2 4321-2, , 2776-05 ####[facility] LABORATORYCLIA [id number] [place] [address] [place] CO2 [Moles/Vol] 22 mmol/L Normal 22-30 [facility] Comment on above: Order Comment: Speci men Type: BLOOD SPECIMENOrdering Facility: [facility] Address: [address] [place] [address] Performed By: #### 2 4321-2, , 2776-05 ####[facility] LABORATORYCLIA [id number] [place] [address] [place] Creatinine [Mass/Vol] 0.49 mg/dL Low 0.58-0.96 [facility] Comment on above: Order Comment: Helen rg Type: BLOOD SPECIMENOrdering Facility: [facility] Address: [address] [place] [address] Performed By: #### 2 4321-2, , 2776-05 ####[facility] LABORATORYCLIA [id number] [address] STATES OF [facility] Creatinine and Glomerular filtration rate.predicted panel (S/P/Bld) 94 mL/min/1.73m??? Normal >=60 [facility] Comment on above: Order Comment: Helen rg Type: BLOOD SPECIMENOrdering Facility: [facility] Address: [address] [place] [address] Result Comment: Kaylene mated Glomerular Filtration Rate [...] 2 4321-2, , 2776-05 ####[facility] LABORATORYCLIA [id number] [address] [place] Glucose [Mass/Vol] 143 mg/dL High 74-99 [facility] Comment on above: Order Comment: Helen rg Type: BLOOD SPECIMENOrdering Facility: [facility] Address: [address] [place] [address] Result Comment: The [place] [employer] (ADA) provides guidance for cutoff [...] Standards of Medical Care in Diabetes 2016, [place] [employer]. Diabetes Care. 2016.39(Suppl 1). Performed By: #### 2 4321-2, , 2776-05 ####[facility] LABORATORYCLIA [id number] [place], [place] [address] [place] [address] [place] Potassium [Moles/Vol] 4.2 mmol/L Normal 3.7-5.1 [facility] Comment on above: Order Comment: Helen rg Type: BLOOD SPECIMENOrdering Facility: [facility] Address: [address] [place] [address] Performed By: #### 2 4321-2, , 2776-05 ####[facility] LABORATORYCLIA [id number] [address] STATES OF [facility] Sodium [Moles/Vol] 134 mmol/L Low 136-144 [facility] Comment on above: Order Comment: Helen rg Type: BLOOD SPECIMENOrdering Facility: [facility] Address: [address] [place] [address] Performed By: #### 2 4321-2, , 2776-05 ####[facility] LABORATORYCLIA [id number] [address] STATES [facility] Urea nitrogen [Mass/Vol] 12 mg/dL Normal 7-21 [facility] Comment on above: Order Comment: Helen rg Type: BLOOD SPECIMENOrdering Facility: [facility] Address: [address] [place] [address] Performed By: #### 2 4321-2, , 2776-05 ####[facility] LABORATORYCLIA [id number] [place] [id number] [place] CASE MANAGEMon 05-10-2024 CASE MANAGEM Normal [facility] CBC panel Auto (Bld)on 05-10 Erythrocyte distribution width (RBC) [Ratio] 15.6 % High 11.5-15.0 [facility] Comment on above: Order Comment: Helen rg Type: BLOOD SPECIMENOrdering Facility: [facility] Address: [address] [place] [address] Performed By: #### 5 8410-2 ####[facility] LABORATORYCLIA [id number] [address] Hematocrit (Bld) [Volume fraction] 24.7 % Low 36.0-46.0 [facility] Comment on above: Order Comment: Speci men Type: BLOOD SPECIMENOrdering Facility: [facility] Address: [address] [place] [address] Performed By: #### 5 8410-2 ####[facility] LABORATORYCLIA [id number] [address] OF [facility] Hemoglobin (Bld) [Mass/Vol] 7.8 g/dL Low 11.5-15.5 [facility] Comment on above: Order Comment: Speci men Type: BLOOD SPECIMENOrdering Facility: [facility] Address: [address] [place] [address] Performed By: #### 5 8410-2 ####[facility] LABORATORYCLIA [id number] [address] STATES OF [facility] MCH (RBC) [Entitic mass] 30.0 pg Normal 26.0-34.0 [facility] Comment on above: Order Comment: Speci men Type: BLOOD SPECIMENOrdering Facility: [facility] Address: [address] [place] [address] Performed By: #### 5 8410-2 ####[facility] LABORATORYCLIA [id number] [address] [place] MCHC (RBC) [Mass/Vol] 31.6 g/dL Normal 30.5-36.0 [facility] Comment on above: Order Comment: Speci men Type: BLOOD SPECIMENOrdering Facility: [facility] Address: [address] [place] [address] Performed By: #### 5 8410-2 ####[facility] LABORATORYCLIA [id number] [address] MCV (RBC) [Entitic vol] 95.0 fL Normal 80.0-100.0 [facility] Comment on above: Order Comment: Speci men Type: BLOOD SPECIMENOrdering Facility: [facility] Address: [address] [place] [address] Performed By: #### 5 8410-2 ####[facility] LABORATORYCLIA [id number] [address] STATES OF [facility] Nucleated RBC (Bld) [#/Vol] 0.02 10*3/uL High <0.01 [facility] Comment on above: Order Comment: Speci men Type: BLOOD SPECIMENOrdering Facility: [facility] Address: [address] [place] [address] Performed By: #### 5 8410-2 ####[facility] LABORATORYCLIA [id number] [address] [place] Platelet mean volume (Bld) [Entitic vol] 10.8 fL Normal 9.0-12.7 [facility] Comment on above: Order Comment: Speci men Type: BLOOD SPECIMENOrdering Facility: [facility] Address: [address] [place] [address] Performed By: #### 5 8410-2 ####[facility] LABORATORYCLIA [id number] [address] [place] Platelets (Bld) [#/Vol] 245 10*3/uL Normal 150-400 [facility] Comment on above: Order Comment: Speci men Type: BLOOD SPECIMENOrdering Facility: [facility] Address: [address] [place] [address] Performed By: #### 5 8410-2 ####[facility] LABORATORYCLIA [id number] [address] [place] RBC (Bld) [#/Vol] 2.60 10*6/uL Low 3.90-5.20 [facility] Comment on above: Order Comment: Speci men Type: BLOOD SPECIMENOrdering Facility: [facility] Address: [address] [place] [address] Performed By: #### 5 8410-2 ####[facility] LABORATORYCLIA [id number] [place], [place] [address] [place] [address] [place] WBC (Bld) [#/Vol] 10.48 10*3/uL Normal 3.70-11.00 [facility] Comment on above: Order Comment: Speci men Type: BLOOD SPECIMENOrdering Facility: [facility] Address: [address] [place] [address] Performed By: #### 5 8410-2 ####[facility] LABORATORYCLIA [id number] [place] [id number] [place] CT BRAIN WO IVCONon 05-10-[address] BRAIN WO IVCON Normal [facility] Calcium.ionized [Moles/Vol]o n 05-10-2024 Calcium.ionized (BldV) [Mass/Vol] 1.13 mmol/L Normal 1.08-1.30 [facility] Comment on above: Order Comment: Speci men Type: BLOOD SPECIMENOrdering Facility: [facility] Address: [address] [place] [address] Performed By: #### 1 995-0 ####[facility] LABORATORYCLIA [id number] [address] Calcium.ionized adjusted to pH 7.4 (Bld) [Moles/Vol] 1.14 mmol/L Normal 1.08-1.30 [facility] Comment on above: Order Comment: Speci men Type: BLOOD SPECIMENOrdering Facility: [facility] Address: [address] [place] [address] Performed By: #### 1 995-0 ####[facility] LABORATORYCLIA [id number] [place] [address] [place] Magnesium SerPl-mCncon 05-10 Magnesium [Mass/Vol] 1.9 mg/dL Normal 1.7-2.3 [facility] Comment on above: Order Comment: Speci men Type: BLOOD SPECIMENOrdering Facility: [facility] Address: [address] [place] [address] Performed By: #### 2 4321-2, , 2776-05 ####[facility] LABORATORYCLIA [id number] [address] OF [facility] NURSING PROGon 05-10-2024 NURSING PROG Normal [facility] Phosphate SerPl-mCncon 05-10 Phosphate [Mass/Vol] 2.8 mg/dL Normal 2.7-4.8 [facility] Comment on above: Order Comment: Speci men Type: BLOOD SPECIMENOrdering Facility: [facility] Address: [address] [place] [address] Performed By: #### 2 4321-2, , 2776-05 ####[facility] LABORATORYCLIA [id number] [address] THERAPY NTon 05-10-2024 THERAPY NT Normal [facility] THERAPY NT Normal [facility] THERAPY NT Normal [facility] Basic metabolic 2000 panelon 05-09-2024 Anion gap [Moles/Vol] 12 mmol/L Normal 8-15 [facility] Comment on above: Order Comment: Speci men Type: BLOOD SPECIMENOrdering Facility: [facility] Address: [address] [place] [address] Performed By: #### 2 4321-2, , 2776-05 ####[facility] LABORATORYCLIA [id number] [address] STATES OF [facility] Calcium [Mass/Vol] 7.9 mg/dL Low 8.5-10.2 [facility] Comment on above: Order Comment: Speci men Type: BLOOD SPECIMENOrdering Facility: [facility] Address: [address] [place] [address] Performed By: #### 2 4321-2, , 2776-05 ####[facility] LABORATORYCLIA [id number] [address] [place] Chloride [Moles/Vol] 103 mmol/L Normal 98-107 [facility] Comment on above: Order Comment: Speci men Type: BLOOD SPECIMENOrdering Facility: [facility] Address: [address] [place], [place] [address] Performed By: #### 2 4321-2, , 2776-05 ####[facility]RAWFORDSVILLECLIA [id number] [place] [id number] [place] CO2 [Moles/Vol] 21 mmol/L Low 22-30 [facility] Comment on above: Order Comment: Speci men Type: BLOOD SPECIMENOrdering Facility: [facility] Address: [address] [place] [address] Performed By: #### 2 4321-2, , 2776-05 ####[facility]PITALIA [id number] [address] STATES OF [facility] Creatinine [Mass/Vol] 0.56 mg/dL Low 0.58-0.96 [facility] Comment on above: Order Comment: Speci men Type: BLOOD SPECIMENOrdering Facility: [facility] Address: [address] [place] [address] Performed By: #### 2 4321-2, , 2776-05 ####[facility] HOSPITALIA [id number] [address] Creatinine and Glomerular filtration rate.predicted panel (S/P/Bld) 91 mL/min/1.73m??? Normal >=60 [facility] Comment on above: Order Comment: Speci men Type: BLOOD SPECIMENOrdering Facility: [facility] Address: [address] [place] [address] Result Comment: Kaylene mated Glomerular Filtration Rate [...] 2 4321-2, , 2776-05 ####[facility] LABORATORYCLIA [id number] [place] [address] [place] Glucose [Mass/Vol] 150 mg/dL High 74-99 [facility] Comment on above: Order Comment: Speci men Type: BLOOD SPECIMENOrdering Facility: [facility] Address: [address] [place] [address] Result Comment: The [place] [employer] (ADA) provides guidance for cutoff [...] Standards of Medical Care in Diabetes 2016, [place] [employer]. Diabetes Care. 2016.39(Suppl 1). Performed By: #### 2 4321-2, , 2776-05 ####[facility] LABORATORYCLIA [id number] [place] [address] [place] Potassium [Moles/Vol] 4.3 mmol/L Normal 3.7-5.1 [facility] Comment on above: Order Comment: Speci men Type: BLOOD SPECIMENOrdering Facility: [facility] Address: [address] [place] [address] Performed By: #### 2 4321-2, , 2776-05 ####[facility] LABORATORYCLIA [id number] [place] [id number] [place] Sodium [Moles/Vol] 136 mmol/L Normal 136-144 [facility] Comment on above: Order Comment: Speci men Type: BLOOD SPECIMENOrdering Facility: [facility] Address: [address] [place] [address] Performed By: #### 2 4321-2, , 2776-05 ####[facility] LABORATORYCLIA [id number] [place] [id number] [place] Urea nitrogen [Mass/Vol] 16 mg/dL Normal 7-21 [facility] Comment on above: Order Comment: Speci men Type: BLOOD SPECIMENOrdering Facility: [facility] Address: [address] [place] [address] Performed By: #### 2 4321-2, 34143-7, 2777-1 ####[facility] LABORATORYCLIA [id number] [address] [place] CBC panel Auto (Bld)on 05-09 Erythrocyte distribution width (RBC) [Ratio] 16.1 % High 11.5-15.0 [facility] Comment on above: Order Comment: Speci men Type: BLOOD SPECIMENOrdering Facility: [facility] Address: [address] [place] [address] Performed By: #### 5 8410-2 ####[facility] LABORATORYCLIA [id number] [address] [place] Hematocrit (Bld) [Volume fraction] 20.4 % Low 36.0-46.0 [facility] Comment on above: Order Comment: Speci men Type: BLOOD SPECIMENOrdering Facility: [facility] Address: [address] [place] [address] Performed By: #### 5 8410-2 ####[facility] LABORATORYCLIA [id number] [address] [place] Hemoglobin (Bld) [Mass/Vol] 6.4 g/dL Low 11.5-15.5 [facility] Comment on above: Order Comment: Speci men Type: BLOOD SPECIMENOrdering Facility: [facility] Address: [address] [place] [address] Performed By: #### 5 8410-2 ####[facility] LABORATORYCLIA [id number] [address] STATES [facility] MCH (RBC) [Entitic mass] 29.9 pg Normal 26.0-34.0 [facility] Comment on above: Order Comment: Speci men Type: BLOOD SPECIMENOrdering Facility: [facility] Address: [address] [place] [address] Performed By: #### 5 8410-2 ####[facility] LABORATORYCLIA [id number] [address] MCHC (RBC) [Mass/Vol] 31.4 g/dL Normal 30.5-36.0 [facility] Comment on above: Order Comment: Speci men Type: BLOOD SPECIMENOrdering Facility: [facility] Address: [address] [place] [address] Performed By: #### 5 8410-2 ####[facility] LABORATORYCLIA [id number] [address] MCV (RBC) [Entitic vol] 95.3 fL Normal 80.0-100.0 [facility] Comment on above: Order Comment: Speci men Type: BLOOD SPECIMENOrdering Facility: [facility] Address: [address] [place] [address] Performed By: #### 5 8410-2 ####[facility] LABORATORYCLIA [id number] [address] Nucleated RBC (Bld) [#/Vol] 0.02 10*3/uL High <0.01 [facility] Comment on above: Order Comment: Speci men Type: BLOOD SPECIMENOrdering Facility: [facility] Address: [address] [place] [address] Performed By: #### 5 8410-2 ####[facility] LABORATORYCLIA [id number] [address] Platelet mean volume (Bld) [Entitic vol] 11.0 fL Normal 9.0-12.7 [facility] Comment on above: Order Comment: Speci men Type: BLOOD SPECIMENOrdering Facility: [facility] Address: [address] [place] [address] Performed By: #### 5 8410-2 ####[facility] LABORATORYCLIA [id number] [address] OF [place] Platelets (Bld) [#/Vol] 219 10*3/uL Normal 150-400 [facility] Comment on above: Order Comment: Speci men Type: BLOOD SPECIMENOrdering Facility: [facility] Address: [address] [place] [address] Performed By: #### 5 8410-2 ####[facility] LABORATORYCLIA [id number] [place] [address] [place] RBC (Bld) [#/Vol] 2.14 10*6/uL Low 3.90-5.20 [facility] Comment on above: Order Comment: Speci men Type: BLOOD SPECIMENOrdering Facility: [facility] Address: [address] [place] [address] Performed By: #### 5 8410-2 ####[facility] LABORATORYCLIA [id number] [address] STATES OF [facility] WBC (Bld) [#/Vol] 10.06 10*3/uL Normal 3.70-11.00 [facility] Comment on above: Order Comment: Speci men Type: BLOOD SPECIMENOrdering Facility: [facility] Address: [address] [place] [address] Performed By: #### 5 8410-2 ####[facility] LABORATORYCLIA [id number] [address] Calcium.ionized [Moles/Vol]o n 05-09-2024 Calcium.ionized (BldV) [Mass/Vol] 1.20 mmol/L Normal 1.08-1.30 [facility] Comment on above: Order Comment: Speci men Type: BLOOD SPECIMENOrdering Facility: [facility] Address: [address] [place] [address] Performed By: #### 1 995-0 ####[facility] LABORATORYCLIA [id number] [address] Calcium.ionized adjusted to pH 7.4 (Bld) [Moles/Vol] 1.17 mmol/L Normal 1.08-1.30 [facility] Comment on above: Order Comment: Speci men Type: BLOOD SPECIMENOrdering Facility: [facility] Address: [address] [place] [address] Performed By: #### 1 995-0 ####[facility] LABORATORYCLIA [id number] [address] Hematocrit Auto (Bld) [Volum e fraction]on 05-09-2024 Hematocrit (Bld) [Volume fraction] 20.4 % Low 36.0-46.0 [facility] Comment on above: Order Comment: Speci men Type: BLOOD SPECIMENOrdering Facility: [facility] Address: [address] [place] [address] Performed By: #### 4 544-3, 718-7 ####[facility] LABORATORYCLIA [id number] [address] STATES OF [facility] Hgb Bld-mCncon 05-09-2024 Hemoglobin (Bld) [Mass/Vol] 7.4 g/dL Low 11.5-15.5 [facility] Comment on above: Order Comment: Speci men Type: BLOOD SPECIMENOrdering Facility: [facility] Address: [address] [place] [address] Performed By: #### 7 18-7 ####[facility]VILLECLIA [id number] [address] STATES OF [facility] Hemoglobin (Bld) [Mass/Vol] 6.5 g/dL Low 11.5-15.5 [facility] Comment on above: Order Comment: Speci men Type: BLOOD SPECIMENOrdering Facility: [facility] Address: [address] [place] [address] Performed By: #### 4 544-3 718-7 ####[facility] LABORATORYCLIA [id number] [address] [place] Magnesium SerPl-mCncon 05-09 Magnesium [Mass/Vol] 2.0 mg/dL Normal 1.7-2.3 [facility] Comment on above: Order Comment: Speci men Type: BLOOD SPECIMENOrdering Facility: [facility] Address: [address] [place] [address] Performed By: #### 2 4321-2, 96234-1, 2777-1 ####[facility] LABORATORYCLIA [id number] [place] [address] [place] PT EDon 05-09-2024 PT ED Normal [facility] Phosphate SerPl-mCncon 05-09 Phosphate [Mass/Vol] 2.9 mg/dL Normal 2.7-4.8 [facility] Comment on above: Order Comment: Speci men Type: BLOOD SPECIMENOrdering Facility: [facility] Address: [address] [place] [address] Performed By: #### 2 4321-2, , 2777 ####[facility] LABORATORYCLIA [id number] [address] [place] THERAPY NTon 05-09-2024 THERAPY NT Normal [facility] THERAPY NT Normal [facility] Basic metabolic 2000 panelon 05-08-2024 Anion gap [Moles/Vol] 9 mmol/L Normal 8-15 [facility] Comment on above: Order Comment: Speci men Type: BLOOD SPECIMENOrdering Facility: [facility] Address: [address] [place] [address] Performed By: #### 2 4321-2 ####[facility] LABORATORYCLIA [id number] [place] [address] [place] Calcium [Mass/Vol] 8.1 mg/dL Low 8.5-10.2 [facility] Comment on above: Order Comment: Speci men Type: BLOOD SPECIMENOrdering Facility: [facility] Address: [address] [place] [address] Performed By: #### 2 4321-2 ####[facility] LABORATORYCLIA [id number] [place] [address] [place] Chloride [Moles/Vol] 110 mmol/L High 98-107 [facility] Comment on above: Order Comment: Speci men Type: BLOOD SPECIMENOrdering Facility: [facility] Address: [address] [place] [address] Performed By: #### 2 4321-2 ####[facility] LABORATORYCLIA [id number] [address] STATES OF [facility] CO2 [Moles/Vol] 21 mmol/L Low 22-30 [facility] Comment on above: Order Comment: Speci men Type: BLOOD SPECIMENOrdering Facility: [facility] Address: [address] [place] [address] Performed By: #### 2 4321-2 ####[facility] LABORATORYCLIA [id number] [address] STATES OF [facility] Creatinine [Mass/Vol] 0.65 mg/dL Normal 0.58-0.96 [facility] Comment on above: Order Comment: Speci men Type: BLOOD SPECIMENOrdering Facility: [facility] Address: [address] [place] [address] Performed By: #### 2 4321-2 ####[facility]LECLIA [id number] [address] Creatinine and Glomerular filtration rate.predicted panel (S/P/Bld) 88 mL/min/1.73m??? Normal >=60 [facility] Comment on above: Order Comment: Speci men Type: BLOOD SPECIMENOrdering Facility: [facility] Address: [address] [place] [address] Result Comment: Kaylene mated Glomerular Filtration Rate [...] actual GFR. Performed By: #### 2 4321-2 ####[facility]ORATORYCLIA [id number] [address] Glucose [Mass/Vol] 168 mg/dL High 74-99 [facility] Comment on above: Order Comment: Speci men Type: BLOOD SPECIMENOrdering Facility: [facility] Address: [address] [place] [address] Result Comment: The [place] [employer] (ADA) provides guidance for cutoff [...] Standards of Medical Care in Diabetes 2016, [place] [employer]. Diabetes Care. 2016.39(Suppl 1). Performed By: #### 2 4321-2 ####[facility] LABORATORYCLIA [id number] [place] [address] [place] Potassium [Moles/Vol] 5.1 mmol/L Normal 3.7-5.1 [facility] Comment on above: Order Comment: Speci men Type: BLOOD SPECIMENOrdering Facility: [facility] Address: [address] [place] [address] Performed By: #### 2 4321-2 ####[facility] LABORATORYCLIA [id number] [place] [address] [place] Sodium [Moles/Vol] 140 mmol/L Normal 136-144 [facility] Comment on above: Order Comment: Speci men Type: BLOOD SPECIMENOrdering Facility: [facility] Address: [address] [place] [address] Performed By: #### 2 4321-2 ####[facility] LABORATORYCLIA [id number] [place] [address] [place] Urea nitrogen [Mass/Vol] 18 mg/dL Normal 7-21 [facility] Comment on above: Order Comment: Speci men Type: BLOOD SPECIMENOrdering Facility: [facility] Address: [address] [place] [id number] Performed By: #### 2 4321-2 ####[facility] LABORATORYCLIA [id number] [place] [address] [place] Anion gap [Moles/Vol] 8 mmol/L Normal 8-15 [facility] Comment on above: Order Comment: Speci men Type: BLOOD SPECIMENOrdering Facility: [facility] Address: [address] [place] [address] Performed By: #### 2 4321-2 ####[facility]ORATORYCLIA [id number] [place] [address] [place] Calcium [Mass/Vol] 8.4 mg/dL Low 8.5-10.2 [facility] Comment on above: Order Comment: Speci men Type: BLOOD SPECIMENOrdering Facility: [facility] Address: [address] [place] [address] Performed By: #### 2 4321-2 ####[facility] LABORATORYCLIA [id number] [place] [address] [place] Chloride [Moles/Vol] 109 mmol/L High 98-107 [facility] Comment on above: Order Comment: Speci men Type: BLOOD SPECIMENOrdering Facility: [facility] Address: [address] [place] [address] Performed By: #### 2 4321-2 ####[facility]ORATORYCLIA [id number] [place] [address] [place] CO2 [Moles/Vol] 20 mmol/L Low 22-30 [facility] Comment on above: Order Comment: Speci men Type: BLOOD SPECIMENOrdering Facility: [facility] Address: [address] [place] [address] Performed By: #### 2 4321-2 ####[facility]ORATORYCLIA [id number] [place] [address] [place] Creatinine [Mass/Vol] 0.74 mg/dL Normal 0.58-0.96 [facility] Comment on above: Order Comment: Speci men Type: BLOOD SPECIMENOrdering Facility: [facility] Address: [address] [place] [address] Performed By: #### 2 4321-2 ####[facility]LECLIA [id number] [place] [address] [place] Creatinine and Glomerular filtration rate.predicted panel (S/P/Bld) 81 mL/min/1.73m??? Normal >=60 [facility] Comment on above: Order Comment: Helen rg Type: BLOOD SPECIMENOrdering Facility: [facility] Address: [address] [place] [address] Result Comment: Kaylene mated Glomerular Filtration Rate [...] actual GFR. Performed By: #### 2 4321-2 ####[facility] HOSPITALIA [id number] [place] [address] [place] Glucose [Mass/Vol] 168 mg/dL High 74-99 [facility] Comment on above: Order Comment: Helen rg Type: BLOOD SPECIMENOrdering Facility: [facility] Address: [address] [place] [address] Result Comment: The [place] Diabetes [employer] (ADA) provides guidance for cutoff [...] Standards of Medical Care in Diabetes 2016, [place] [employer]. Diabetes Care. 2016.39(Suppl 1). Performed By: #### 2 4321-2 ####[facility] LABORATORYCLIA [id number] [place] [id number] [place] Potassium [Moles/Vol] 5.2 mmol/L High 3.7-5.1 [facility] Comment on above: Order Comment: Speci men Type: BLOOD SPECIMENOrdering Facility: [facility] Address: [address] [place] [address] Performed By: #### 2 4321-2 ####[facility] LABORATORYCLIA [id number] [place] [address] [place] Sodium [Moles/Vol] 137 mmol/L Normal 136-144 [facility] Comment on above: Order Comment: Speci men Type: BLOOD SPECIMENOrdering Facility: [facility] Address: [address] [place] [address] Performed By: #### 2 4321-2 ####[facility] LABORATORYCLIA [id number] [address] [place] Urea nitrogen [Mass/Vol] 17 mg/dL Normal 7-21 [facility] Comment on above: Order Comment: Speci men Type: BLOOD SPECIMENOrdering Facility: [facility] Address: [address] [place] [address] Performed By: #### 2 4321-2 ####[facility] LABORATORYCLIA [id number] [address] [place] Anion gap [Moles/Vol] 8 mmol/L Normal 8-15 [facility] Comment on above: Order Comment: Speci men Type: BLOOD SPECIMENOrdering Facility: [facility] Address: [address] [place] [address] Performed By: #### 2 4321-2, 54805-1 ####[facility]ORATORYCLIA [id number] [place] [address] [place] Calcium [Mass/Vol] 8.6 mg/dL Normal 8.5-10.2 [facility] Comment on above: Order Comment: Speci men Type: BLOOD SPECIMENOrdering Facility: [facility] Address: [address] [place] [address] Performed By: #### 2 4321-2, 21852-7 ####[facility]ORATORYCLIA [id number] [place] [address] Chloride [Moles/Vol] 109 mmol/L High 98-107 [facility] Comment on above: Order Comment: Speci men Type: BLOOD SPECIMENOrdering Facility: [facility] Address: [address] [place] [address] Performed By: #### 2 4321-2, 56150-2 ####[facility] LABORATORYCLIA [id number] [address] OF [facility] CO2 [Moles/Vol] 20 mmol/L Low 22-30 [facility] Comment on above: Order Comment: Speci men Type: BLOOD SPECIMENOrdering Facility: [facility] Address: [address] [place] [address] Performed By: #### 2 4321-2, 07150-9 ####[facility]ORATORYCLIA [id number] [address] Creatinine [Mass/Vol] 0.72 mg/dL Normal 0.58-0.96 [facility] Comment on above: Order Comment: Speci men Type: BLOOD SPECIMENOrdering Facility: [facility] Address: [address] [place] [address] Performed By: #### 2 4321-2, 54034-0 ####[place] [facility] LABORATORYCLIA [id number] [address] Creatinine and Glomerular filtration rate.predicted panel (S/P/Bld) 84 mL/min/1.73m??? Normal >=60 [facility] Comment on above: Order Comment: Speci men Type: BLOOD SPECIMENOrdering Facility: [facility] Address: [address] [place] [address] Result Comment: Kaylene mated Glomerular Filtration Rate [...] actual GFR. Performed By: #### 2 4321-2, 95283-5 ####[facility] LABORATORYCLIA [id number] [place] [address] [place] Glucose [Mass/Vol] 152 mg/dL High 74-99 [facility] Comment on above: Order Comment: Speci men Type: BLOOD SPECIMENOrdering Facility: [facility] Address: [address] [place] [address] Result Comment: The [place] Diabetes Association (ADA) provides guidance for cutoff [...] Standards of Medical Care in Diabetes 2016, [place] [employer]. Diabetes Care. 2016.39(Suppl 1). Performed By: #### 2 4321-2, 99035-7 ####[facility] LABORATORYCLIA [id number] [place] [address] [place] Potassium [Moles/Vol] 5.2 mmol/L High 3.7-5.1 [facility] Comment on above: Order Comment: Speci men Type: BLOOD SPECIMENOrdering Facility: [facility] Address: [address] [place] [address] Performed By: #### 2 4321-2, 94382-8 ####[facility] LABORATORYCLIA [id number] [place] [address] [place] Sodium [Moles/Vol] 137 mmol/L Normal 136-144 [facility] Comment on above: Order Comment: Speci men Type: BLOOD SPECIMENOrdering Facility: [facility] Address: [address] [place] [address] Performed By: #### 2 4321-2, 03038-5 ####[facility] LABORATORYCLIA [id number] [place] [address] [place] Urea nitrogen [Mass/Vol] 18 mg/dL Normal 7-21 [facility] Comment on above: Order Comment: Speci men Type: BLOOD SPECIMENOrdering Facility: [facility] Address: [address] [place] [address] Performed By: #### 2 4321-2, 14858-6 ####[facility] LABORATORYCLIA [id number] [place] [address] [place] Anion gap [Moles/Vol] 9 mmol/L Normal 8-15 [facility] Comment on above: Order Comment: Speci men Type: BLOOD SPECIMENOrdering Facility: [facility] Address: [address] [place] [address] Performed By: #### 2 4321-2 ####[facility] LABORATORYCLIA [id number] [place] [address] [place] Calcium [Mass/Vol] 8.5 mg/dL Normal 8.5-10.2 [facility] Comment on above: Order Comment: Speci men Type: BLOOD SPECIMENOrdering Facility: [facility] Address: [address] [place] [address] Performed By: #### 2 4321-2 ####[facility] LABORATORYCLIA [id number] [place] [address] [place] Chloride [Moles/Vol] 104 mmol/L Normal 98-107 [facility] Comment on above: Order Comment: Speci men Type: BLOOD SPECIMENOrdering Facility: [facility] Address: [address] [place] [address] Performed By: #### 2 4321-2 ####[facility] LABORATORYCLIA [id number] [place] [address] [place] CO2 [Moles/Vol] 19 mmol/L Low 22-30 [facility] Comment on above: Order Comment: Speci men Type: BLOOD SPECIMENOrdering Facility: [facility] Address: [address] [place] [address] Performed By: #### 2 4321-2 ####[facility]ORATORYCLIA [id number] [address] STATES OF [facility] Creatinine [Mass/Vol] 0.64 mg/dL Normal 0.58-0.96 [facility] Comment on above: Order Comment: Helen rg Type: BLOOD SPECIMENOrdering Facility: [facility] Address: [address] [place] [address] Performed By: #### 2 4321-2 ####[facility]PITALIA [id number] [address] Creatinine and Glomerular filtration rate.predicted panel (S/P/Bld) 88 mL/min/1.73m??? Normal >=60 [facility] Comment on above: Order Comment: Helen rg Type: BLOOD SPECIMENOrdering Facility: [facility] Address: [address] [place] [address] Result Comment: Kaylene mated Glomerular Filtration Rate [...] actual GFR. Performed By: #### 2 4321-2 ####[facility] LABORATORYIA [id number] [address] OF [facility] Glucose [Mass/Vol] 251 mg/dL High 74-99 [facility] Comment on above: Order Comment: Helen rg Type: BLOOD SPECIMENOrdering Facility: [facility] Address: [address] [place] [address] Result Comment: The [place] Diabetes Association (ADA) provides guidance for cutoff [...] Standards of Medical Care in Diabetes 2016, [place] [employer]. Diabetes Care. 2016.39(Suppl 1). Performed By: #### 2 4321-2 ####[facility] LABORATORYCLIA [id number] [address] STATES OF [facility] Potassium [Moles/Vol] 5.7 mmol/L High 3.7-5.1 [facility] Comment on above: Order Comment: Speci men Type: BLOOD SPECIMENOrdering Facility: [facility] Address: [address] [place] [address] Performed By: #### 2 4321-2 ####[facility] LABORATORYCLIA [id number] [address] STATES [facility] Sodium [Moles/Vol] 132 mmol/L Low 136-144 [facility] Comment on above: Order Comment: Speci men Type: BLOOD SPECIMENOrdering Facility: [facility] Address: [address] [place] [address] Performed By: #### 2 1-2 ####[facility] LABORATORYCLIA [id number] [address] STATES [facility] Urea nitrogen [Mass/Vol] 19 mg/dL Normal 7-21 [facility] Comment on above: Order Comment: Speci men Type: BLOOD SPECIMENOrdering Facility: [facility] Address: [address] [place] [address] Performed By: #### 2 4321-2 ####[facility] LABORATORYCLIA [id number] [address] [place] Anion gap [Moles/Vol] 12 mmol/L Normal 8-15 [facility] Comment on above: Order Comment: Speci men Type: BLOOD SPECIMENOrdering Facility: [facility] Address: [address] [place] [address] Performed By: #### 2 4321-2, 2777-1, 24022-6 ####[facility] LABORATORYCLIA [id number] [place] [address] [place] Calcium [Mass/Vol] 8.4 mg/dL Low 8.5-10.2 [facility] Comment on above: Order Comment: Speci men Type: BLOOD SPECIMENOrdering Facility: [facility] Address: [address] [place] [address] Performed By: #### 2 4321-2, 2776-05, ####[facility] LABORATORYCLIA [id number] [place] [address] [place] Chloride [Moles/Vol] 105 mmol/L Normal 98-107 [facility] Comment on above: Order Comment: Speci men Type: BLOOD SPECIMENOrdering Facility: [facility] Address: [address] [place] [address] Performed By: #### 2 4321-2, 2776-05, ####[facility] LABORATORYCLIA [id number] [address] STATES [place] CO2 [Moles/Vol] 16 mmol/L Low 22-30 [facility] Comment on above: Order Comment: Speci men Type: BLOOD SPECIMENOrdering Facility: [facility] Address: [address] [place] [address] Performed By: #### 2 4321-2, 2776-05, ####[facility] LABORATORYCLIA [id number] [address] [place] Creatinine [Mass/Vol] 0.70 mg/dL Normal 0.58-0.96 [facility] Comment on above: Order Comment: Speci men Type: BLOOD SPECIMENOrdering Facility: [facility] Address: [address] [place] [address] Performed By: #### 2 4321-2, 2776-05, ####[facility] LABORATORYCLIA [id number] [address] Creatinine and Glomerular filtration rate.predicted panel (S/P/Bld) 86 mL/min/1.73m??? Normal >=60 [facility] Comment on above: Order Comment: Speci men Type: BLOOD SPECIMENOrdering Facility: [facility] Address: [address] [place] [address] Result Comment: Kaylene mated Glomerular Filtration Rate [...] actual GFR. Performed By: #### 2 4321-2, 2777-1, ####[facility] LABORATORYCLIA [id number] [place] [address] [place] Glucose [Mass/Vol] 247 mg/dL High 74-99 [facility] Comment on above: Order Comment: Helen rg Type: BLOOD SPECIMENOrdering Facility: [facility] Address: [address] [place] [address] Result Comment: The [place] Diabetes Association (ADA) provides guidance for cutoff [...] Standards of Medical Care in Diabetes 2016, [place] [employer]. Diabetes Care. 2016.39(Suppl 1). Performed By: #### 2 4321-2, 2777-1, ####[facility] LABORATORYCLIA [id number] [place] [id number] [place] Potassium [Moles/Vol] 6.2 mmol/L Critically high 3.7-5.1 [facility] Comment on above: Order Comment: Helen rg Type: BLOOD SPECIMENOrdering Facility: [facility] Address: [address] [place] [address] Performed By: #### 2 4321-2, 27711-28, ####[facility] LABORATORYCLIA [id number] [place] [address] [place] Sodium [Moles/Vol] 133 mmol/L Low 136-144 [facility] Comment on above: Order Comment: Speci men Type: BLOOD SPECIMENOrdering Facility: [facility] Address: [address] [place] [address] Performed By: #### 2 4321-2, 2776-05, ####[facility] LABORATORYCLIA [id number] [place] [address] [place] Urea nitrogen [Mass/Vol] 19 mg/dL Normal 7-21 [facility] Comment on above: Order Comment: Speci men Type: BLOOD SPECIMENOrdering Facility: [facility] Address: [address] [place] [address] Performed By: #### 2 4321-2, 2776-05, ####[facility] LABORATORYCLIA [id number] [address] [place] CASE MGT INIT ASSESon 2023 CASE MGT INIT ASSES Normal [facility] CBC panel Auto (Bld)on 05-08 Erythrocyte distribution width (RBC) [Ratio] 16.1 % High 11.5-15.0 [facility] Comment on above: Order Comment: Speci men Type: BLOOD SPECIMENOrdering Facility: [facility] Address: [address] [place] [address] Performed By: #### 5 8410-2 ####[facility] LABORATORYCLIA [id number] [place] [id number] [place] Hematocrit (Bld) [Volume fraction] 25.6 % Low 36.0-46.0 [facility] Comment on above: Order Comment: Speci men Type: BLOOD SPECIMENOrdering Facility: [facility] Address: [address] [place] [address] Performed By: #### 5 8410-2 ####[facility] LABORATORYCLIA [id number] [address] STATES OF [facility] Hemoglobin (Bld) [Mass/Vol] 8.1 g/dL Low 11.5-15.5 [facility] Comment on above: Order Comment: Speci men Type: BLOOD SPECIMENOrdering Facility: [facility] Address: [address] [place] [address] Performed By: #### 5 8410-2 ####[facility] LABORATORYCLIA [id number] [address] MCH (RBC) [Entitic mass] 29.9 pg Normal 26.0-34.0 [facility] Comment on above: Order Comment: Speci men Type: BLOOD SPECIMENOrdering Facility: [facility] Address: [address] [place] [address] Performed By: #### 5 8410-2 ####[facility] LABORATORYCLIA [id number] [address] MCHC (RBC) [Mass/Vol] 31.6 g/dL Normal 30.5-36.0 [facility] Comment on above: Order Comment: Speci men Type: BLOOD SPECIMENOrdering Facility: [facility] Address: [address] [place] [address] Performed By: #### 5 8410-2 ####[facility] LABORATORYCLIA [id number] [address] OF [facility] MCV (RBC) [Entitic vol] 94.5 fL Normal 80.0-100.0 [facility] Comment on above: Order Comment: Speci men Type: BLOOD SPECIMENOrdering Facility: [facility] Address: [address] [place] [address] Performed By: #### 5 8410-2 ####[facility]ORATORYCLIA [id number] [address] Nucleated RBC (Bld) [#/Vol] 0.02 10*3/uL High <0.01 [facility] Comment on above: Order Comment: Speci men Type: BLOOD SPECIMENOrdering Facility: [facility] Address: [address] [place] [address] Performed By: #### 5 8410-2 ####[facility] LABORATORYCLIA [id number] [address] STATES [facility] Platelet mean volume (Bld) [Entitic vol] 10.7 fL Normal 9.0-12.7 [facility] Comment on above: Order Comment: Speci men Type: BLOOD SPECIMENOrdering Facility: [facility] Address: [address] [place] [address] Performed By: #### 5 8410-2 ####[facility] LABORATORYCLIA [id number] [address] OF [place] Platelets (Bld) [#/Vol] 266 10*3/uL Normal 150-400 [facility] Comment on above: Order Comment: Speci men Type: BLOOD SPECIMENOrdering Facility: [facility] Address: [address] [place] [address] Performed By: #### 5 8410-2 ####[facility] LABORATORYCLIA [id number] [address] [place] RBC (Bld) [#/Vol] 2.71 10*6/uL Low 3.90-5.20 [facility] Comment on above: Order Comment: Speci men Type: BLOOD SPECIMENOrdering Facility: [facility] Address: [address] [place] [address] Performed By: #### 5 8410-2 ####[facility] LABORATORYCLIA [id number] [address] [place] WBC (Bld) [#/Vol] 14.54 10*3/uL High 3.70-11.00 [facility] Comment on above: Order Comment: Speci men Type: BLOOD SPECIMENOrdering Facility: [facility] Address: [address] [place] [address] Performed By: #### 5 8410-2 ####[facility]ORATORYCLIA [id number] [address] CONSULT PROGon 12-09-2024 CONSULT PROG Normal [facility] Calcium.ionized [Moles/Vol]o n 05-08-2024 Calcium.ionized (BldV) [Mass/Vol] 1.23 mmol/L Normal 1.08-1.30 [facility] Comment on above: Order Comment: Speci men Type: BLOOD SPECIMENOrdering Facility: [facility] Address: [address] [place] [address] Performed By: #### 1 995-0 ####[facility] LABORATORYCLIA [id number] [address] Calcium.ionized adjusted to pH 7.4 (Bld) [Moles/Vol] 1.17 mmol/L Normal 1.08-1.30 [facility] Comment on above: Order Comment: Speci men Type: BLOOD SPECIMENOrdering Facility: [facility] Address: [address] [place] [address] Performed By: #### 1 995-0 ####[facility]ORATORYCLIA [id number] [address] [place] ECG COMPLETEon 05-08-2024 ECG COMPLETE Normal [facility] Magnesium [Mass/Vol] 2.2 mg/dL Normal 1.7-2.3 [facility] Comment on above: Order Comment: Speci men Type: BLOOD SPECIMENOrdering Facility: [facility] Address: [address] [place] [address] Performed By: #### 2 4321-2, 2777-1, 33491-9 ####[facility] LABORATORYCLIA [id number] [address] [place] NURSING PROGon 05-08-2024 NURSING PROG Normal [facility] Phosphate SerPl-mCncon 05-08 Phosphate [Mass/Vol] 3.7 mg/dL Normal 2.7-4.8 [facility] Comment on above: Order Comment: Speci men Type: BLOOD SPECIMENOrdering Facility: [facility] Address: [address] [place], [place] [address] Performed By: #### 2 4321-2, 2777-1, 83012-0 ####[facility] LABORATORYCLIA [id number] [address] [place] Procalcitonin SerPl-mCncon 1 07-09-2023 Procalcitonin [Mass/Vol] 0.22 ng/mL High <0.09 [facility] Comment on above: Order Comment: Speci men Type: BLOOD SPECIMENOrdering Facility: [facility] Address: [address] [place] [address] Result Comment: For a guided interpretation of test results, please visit the Change in Procalcitonin Calculator, [email or web address]. Performed By: #### 2 4321-2, 17362-9 ####[facility] LABORATORYCLIA [id number] [address] [place] THERAPY NTon 05-08-2024 THERAPY NT Normal [facility] THERAPY NT Normal [facility] XR CHEST 1V FRONTALon 2023 XR CHEST 1V FRONTAL Normal [facility] ANES POSTPROC EVALon 024 ANES POSTPROC EVAL Normal [facility] ANES PRE-OPon 05-07-2024 ANES PRE-OP Normal [facility] BRIEF OP NOTon 05-07-2024 BRIEF OP NOT Normal [facility] Basic metabolic 2000 panelon 05-07-2024 Anion gap [Moles/Vol] 8 mmol/L Normal 8-15 [facility] Comment on above: Order Comment: Speci men Type: BLOOD SPECIMENOrdering Facility: [facility] Address: [address] [place] [id number] Performed By: #### 2 4321-2 ####[facility] LABORATORYCLIA [id number] [address] [place] Calcium [Mass/Vol] 8.2 mg/dL Low 8.5-10.2 [facility] Comment on above: Order Comment: Speci men Type: BLOOD SPECIMENOrdering Facility: [facility] Address: [address] [place] [address] Performed By: #### 2 4321-2 ####[facility] LABORATORYCLIA [id number] [place] [address] [place] Chloride [Moles/Vol] 111 mmol/L High 98-107 [facility] Comment on above: Order Comment: Speci men Type: BLOOD SPECIMENOrdering Facility: [facility] Address: [address] [place] [address] Performed By: #### 2 4321-2 ####[facility]ORATORYCLIA [id number] [address] [place] CO2 [Moles/Vol] 18 mmol/L Low 22-30 [facility] Comment on above: Order Comment: Speci men Type: BLOOD SPECIMENOrdering Facility: [facility] Address: [address] [place] [address] Performed By: #### 2 4321-2 ####[facility] LABORATORYCLIA [id number] [address] OF [facility] Creatinine [Mass/Vol] 0.57 mg/dL Low 0.58-0.96 [facility] Comment on above: Order Comment: Speci men Type: BLOOD SPECIMENOrdering Facility: [facility] Address: [address] [place] [address] Performed By: #### 2 4321-2 ####[facility] LABORATORYCLIA [id number] [address] Creatinine and Glomerular filtration rate.predicted panel (S/P/Bld) 91 mL/min/1.73m??? Normal >=60 [facility] Comment on above: Order Comment: Speci men Type: BLOOD SPECIMENOrdering Facility: [facility] Address: [address] [place] [address] Result Comment: Kaylene mated Glomerular Filtration Rate [...] actual GFR. Performed By: #### 2 4321-2 ####[facility] LABORATORYCLIA [id number] [place] [address] [place] Glucose [Mass/Vol] 179 mg/dL High 74-99 [facility] Comment on above: Order Comment: Helen rg Type: BLOOD SPECIMENOrdering Facility: [facility] Address: [address] [place] [address] Result Comment: The [place] [employer] (ADA) provides guidance for cutoff [...] Standards of Medical Care in Diabetes 2016, [place] [employer]. Diabetes Care. 2016.39(Suppl 1). Performed By: #### 2 4321-2 ####[facility]ORATORYCLIA [id number] [place] [address] [place] Potassium [Moles/Vol] 7.3 mmol/L Critically high 3.7-5.1 [facility] Comment on above: Order Comment: Helen rg Type: BLOOD SPECIMENOrdering Facility: [facility] Address: [address] [place] [id number] Performed By: #### 2 4321-2 ####[facility] LABORATORYCLIA [id number] [place] [id number] [place] Sodium [Moles/Vol] 137 mmol/L Normal 136-144 [facility] Comment on above: Order Comment: Helen rg Type: BLOOD SPECIMENOrdering Facility: [facility] Address: [address] [place] [address] Performed By: #### 2 4321-2 ####[facility] LABORATORYCLIA [id number] [place] [address] [place] Urea nitrogen [Mass/Vol] 16 mg/dL Normal 7-21 [facility] Comment on above: Order Comment: Speci men Type: BLOOD SPECIMENOrdering Facility: [facility] Address: [address] [place] [address] Performed By: #### 2 4321-2 ####[facility] LABORATORYCLIA [id number] [place] [address] [place] Anion gap [Moles/Vol] 9 mmol/L Normal 8-15 [facility] Comment on above: Order Comment: Speci men Type: BLOOD SPECIMENOrdering Facility: [facility] Address: [address] [place] [address] Performed By: #### 2 777-1, 98554-4, ####[facility] LABORATORYCLIA [id number] [place] [address] [place] Calcium [Mass/Vol] 4.8 mg/dL Low 8.5-10.2 [facility] Comment on above: Order Comment: Speci men Type: BLOOD SPECIMENOrdering Facility: [facility] Address: [address] [place] [address] Performed By: #### 2 777-1, 44782-3, ####[facility] LABORATORYCLIA [id number] [place] [address] [place] Chloride [Moles/Vol] 123 mmol/L High 98-107 [facility] Comment on above: Order Comment: Speci men Type: BLOOD SPECIMENOrdering Facility: [facility] Address: [address] [place] [address] Performed By: #### 2 777-1, 85195-3, ####[facility]ORATORYCLIA [id number] [place] [address] [place] CO2 [Moles/Vol] 12 mmol/L Low 22-30 [facility] Comment on above: Order Comment: Speci men Type: BLOOD SPECIMENOrdering Facility: [facility] Address: [address] [place] [address] Performed By: #### 2 777-1, 47887-0, ####[facility]ITALIA [id number] [place] [id number] [place] Creatinine [Mass/Vol] 0.45 mg/dL Low 0.58-0.96 [facility] Comment on above: Order Comment: Speci men Type: BLOOD SPECIMENOrdering Facility: [facility] Address: [address] [place] [address] Performed By: #### 2 777-1, 15542-4, ####[facility]ITALIA [id number] [address] Creatinine and Glomerular filtration rate.predicted panel (S/P/Bld) 96 mL/min/1.73m??? Normal >=60 [facility] Comment on above: Order Comment: Specmigel rg Type: BLOOD SPECIMENOrdering Facility: [facility] Address: [address] [place] [address] Result Comment: Kaylene mated Glomerular Filtration Rate [...] actual GFR. Performed By: #### 2 777-1, 70765-4, ####[facility]ITALIA [id number] [place] [id number] [place] Glucose [Mass/Vol] 125 mg/dL High 74-99 [facility] Comment on above: Order Comment: Speci men Type: BLOOD SPECIMENOrdering Facility: [facility] Address: [address] [place] [address] Result Comment: The [place] [employer] (ADA) provides guidance for cutoff [...] Standards of Medical Care in Diabetes 2016, [place] [employer]. Diabetes Care. 2016.39(Suppl 1). Performed By: #### 2 777-1, , ####[facility] LABORATORYCLIA [id number] [place] [address] [place] Potassium [Moles/Vol] 2.5 mmol/L Low 3.7-5.1 [facility] Comment on above: Order Comment: Helen rg Type: BLOOD SPECIMENOrdering Facility: [facility] Address: [address] [place] [address] Performed By: #### 2 777-1, , ####[facility] LABORATORYCLIA [id number] [place] [address] [place] Sodium [Moles/Vol] 144 mmol/L Normal 136-144 [facility] Comment on above: Order Comment: Helen rg Type: BLOOD SPECIMENOrdering Facility: [facility] Address: [address] [place] [address] Performed By: #### 2 777-1, , ####[facility] LABORATORYCLIA [id number] [place] [id number] [place] Urea nitrogen [Mass/Vol] 14 mg/dL Normal 7-21 [facility] Comment on above: Order Comment: Helen rg Type: BLOOD SPECIMENOrdering Facility: [facility] Address: [address] [place] [address] Performed By: #### 2 777-1, , ####[facility] LABORATORYCLIA [id number] [place] [address] [place] Anion gap [Moles/Vol] 10 mmol/L Normal 8-15 [facility] Comment on above: Order Comment: Speci men Type: BLOOD SPECIMENOrdering Facility: [facility] Address: [address] [place] [address] Performed By: #### 2 777-1, , ####[facility] LABORATORYCLIA [id number] [place] [address] [place] Calcium [Mass/Vol] 6.2 mg/dL Low 8.5-10.2 [facility] Comment on above: Order Comment: Speci men Type: BLOOD SPECIMENOrdering Facility: [facility] Address: [address] [place] [address] Performed By: #### 2 777-1, , ####[facility] LABORATORYCLIA [id number] [place] [address] [place] Chloride [Moles/Vol] 117 mmol/L High 98-107 [facility] Comment on above: Order Comment: Speci men Type: BLOOD SPECIMENOrdering Facility: [facility] Address: [address] [place] [address] Performed By: #### 2 777-1, , ####[facility] LABORATORYCLIA [id number] [place] [address] [place] CO2 [Moles/Vol] 15 mmol/L Low 22-30 [facility] Comment on above: Order Comment: Speci men Type: BLOOD SPECIMENOrdering Facility: [facility] Address: [address] [place] [address] Performed By: #### 2 777-1, , ####[facility] LABORATORYCLIA [id number] [place] [address] [place] Creatinine [Mass/Vol] 0.51 mg/dL Low 0.58-0.96 [facility] Comment on above: Order Comment: Speci men Type: BLOOD SPECIMENOrdering Facility: [facility] Address: [address] [place] [address] Performed By: #### 2 777-1, 54568-0, 31666-7 ####[facility]IA [id number] [address] [place] Creatinine and Glomerular filtration rate.predicted panel (S/P/Bld) 93 mL/min/1.73m??? Normal >=60 [facility] Comment on above: Order Comment: Helen rg Type: BLOOD SPECIMENOrdering Facility: [facility] Address: [address] [place] [address] Result Comment: Kaylene mated Glomerular Filtration Rate [...] actual GFR. Performed By: #### 2 777-1, 63297-5, ####[facility] LABORATORYIA [id number] [place] [id number] [place] Glucose [Mass/Vol] 148 mg/dL High 74-99 [facility] Comment on above: Order Comment: Helen rg Type: BLOOD SPECIMENOrdering Facility: [facility] Address: [address] [place] [address] Result Comment: The [place] [employer] (ADA) provides guidance for cutoff [...] Standards of Medical Care in Diabetes 2016, [place] [employer]. Diabetes Care. 2016.39(Suppl 1). Performed By: #### 2 777-1, 53109-0, ####[facility] LABORATORYCLIA [id number] [place] [address] [place] Potassium [Moles/Vol] 3.1 mmol/L Low 3.7-5.1 [facility] Comment on above: Order Comment: Speci men Type: BLOOD SPECIMENOrdering Facility: [facility] Address: [address] [place] [address] Performed By: #### 2 777-1, 94295-7, ####[facility] LABORATORYCLIA [id number] [place] [id number] [place] Sodium [Moles/Vol] 142 mmol/L Normal 136-144 [facility] Comment on above: Order Comment: Speci men Type: BLOOD SPECIMENOrdering Facility: [facility] Address: [address] [place] [address] Performed By: #### 2 777-1, , ####[facility] LABORATORYCLIA [id number] [address] STATES [facility] Urea nitrogen [Mass/Vol] 17 mg/dL Normal 7-21 [facility] Comment on above: Order Comment: Speci men Type: BLOOD SPECIMENOrdering Facility: [facility] Address: [address] [place] [address] Performed By: #### 2 777-1, 64149-0, ####[facility] LABORATORYCLIA [id number] [address] STATES OF [facility] CBC panel Auto (Bld)on 05-07 Erythrocyte distribution width (RBC) [Ratio] 15.8 % High 11.5-15.0 [facility] Comment on above: Order Comment: Speci men Type: BLOOD SPECIMENOrdering Facility: [facility] Address: [address] [place] [address] Performed By: #### 5 8410-2 ####[facility] LABORATORYCLIA [id number] [address] Hematocrit (Bld) [Volume fraction] 27.4 % Low 36.0-46.0 [facility] Comment on above: Order Comment: Speci men Type: BLOOD SPECIMENOrdering Facility: [facility] Address: [address] [place] [address] Performed By: #### 5 8410-2 ####[facility] LABORATORYCLIA [id number] [address] OF [facility] Hemoglobin (Bld) [Mass/Vol] 8.8 g/dL Low 11.5-15.5 [facility] Comment on above: Order Comment: Speci men Type: BLOOD SPECIMENOrdering Facility: [facility] Address: [address] [place] [address] Performed By: #### 5 8410-2 ####[facility] LABORATORYCLIA [id number] [address] [place] MCH (RBC) [Entitic mass] 29.8 pg Normal 26.0-34.0 [facility] Comment on above: Order Comment: Speci men Type: BLOOD SPECIMENOrdering Facility: [facility] Address: [address] [place] [address] Performed By: #### 5 8410-2 ####[facility] LABORATORYCLIA [id number] [address] OF [place] MCHC (RBC) [Mass/Vol] 32.1 g/dL Normal 30.5-36.0 [facility] Comment on above: Order Comment: Speci men Type: BLOOD SPECIMENOrdering Facility: [facility] Address: [address] [place] [address] Performed By: #### 5 8410-2 ####[facility] LABORATORYCLIA [id number] [address] [place] MCV (RBC) [Entitic vol] 92.9 fL Normal 80.0-100.0 [facility] Comment on above: Order Comment: Speci men Type: BLOOD SPECIMENOrdering Facility: [facility] Address: [address] [place] [address] Performed By: #### 5 8410-2 ####[facility] LABORATORYCLIA [id number] [address] [place] Nucleated RBC (Bld) [#/Vol] 10*3/uL Normal <0.01 [facility] Comment on above: Order Comment: Speci men Type: BLOOD SPECIMENOrdering Facility: [facility] Address: [address] [place] [address] Performed By: #### 5 8410-2 ####[facility] LABORATORYCLIA [id number] [address] [place] Platelet mean volume (Bld) [Entitic vol] 10.8 fL Normal 9.0-12.7 [facility] Comment on above: Order Comment: Speci men Type: BLOOD SPECIMENOrdering Facility: [facility] Address: [address] [place] [address] Performed By: #### 5 8410-2 ####[facility] LABORATORYCLIA [id number] [address] Platelets (Bld) [#/Vol] 250 10*3/uL Normal 150-400 [facility] Comment on above: Order Comment: Speci men Type: BLOOD SPECIMENOrdering Facility: [facility] Address: [address] [place] [address] Performed By: #### 5 8410-2 ####[facility] LABORATORYCLIA [id number] [address] [place] RBC (Bld) [#/Vol] 2.95 10*6/uL Low 3.90-5.20 [facility] Comment on above: Order Comment: Speci men Type: BLOOD SPECIMENOrdering Facility: [facility] Address: [address] [place] [address] Performed By: #### 5 8410-2 ####[facility] LABORATORYCLIA [id number] [address] [place] WBC (Bld) [#/Vol] 12.58 10*3/uL High 3.70-11.00 [facility] Comment on above: Order Comment: Speci men Type: BLOOD SPECIMENOrdering Facility: [facility] Address: [address] [place] [address] Performed By: #### 5 8410-2 ####[facility] LABORATORYCLIA [id number] [address] Erythrocyte distribution width (RBC) [Ratio] 16.0 % High 11.5-15.0 [facility] Comment on above: Order Comment: Speci men Type: BLOOD SPECIMENOrdering Facility: [facility] Address: [address] [place] [address] Performed By: #### 5 8410-2 ####[facility] LABORATORYCLIA [id number] [address] OF [facility] Hematocrit (Bld) [Volume fraction] 21.8 % Low 36.0-46.0 [facility] Comment on above: Order Comment: Speci men Type: BLOOD SPECIMENOrdering Facility: [facility] Address: [address] [place] [address] Performed By: #### 5 8410-2 ####[facility] LABORATORYCLIA [id number] [address] Hemoglobin (Bld) [Mass/Vol] 7.0 g/dL Low 11.5-15.5 [facility] Comment on above: Order Comment: Speci men Type: BLOOD SPECIMENOrdering Facility: [facility] Address: [address] [place] [address] Performed By: #### 5 8410-2 ####[facility]ORATORYCLIA [id number] [address] MCH (RBC) [Entitic mass] 29.9 pg Normal 26.0-34.0 [facility] Comment on above: Order Comment: Speci men Type: BLOOD SPECIMENOrdering Facility: [facility] Address: [address] [place] [address] Performed By: #### 5 8410-2 ####[facility] LABORATORYCLIA [id number] [address] MCHC (RBC) [Mass/Vol] 32.1 g/dL Normal 30.5-36.0 [facility] Comment on above: Order Comment: Speci men Type: BLOOD SPECIMENOrdering Facility: [facility] Address: [address] [place] [address] Performed By: #### 5 8410-2 ####[facility] LABORATORYCLIA [id number] [address] OF [place] MCV (RBC) [Entitic vol] 93.2 fL Normal 80.0-100.0 [facility] Comment on above: Order Comment: Speci men Type: BLOOD SPECIMENOrdering Facility: [facility] Address: [address] [place] [address] Performed By: #### 5 8410-2 ####[facility] LABORATORYCLIA [id number] [address] Nucleated RBC (Bld) [#/Vol] 10*3/uL Normal <0.01 [facility] Comment on above: Order Comment: Speci men Type: BLOOD SPECIMENOrdering Facility: [facility] Address: [address] [place] [address] Performed By: #### 5 8410-2 ####[facility] LABORATORYCLIA [id number] [address] OF [place] Platelet mean volume (Bld) [Entitic vol] 10.7 fL Normal 9.0-12.7 [facility] Comment on above: Order Comment: Speci men Type: BLOOD SPECIMENOrdering Facility: [facility] Address: [address] [place] [address] Performed By: #### 5 8410-2 ####[facility] LABORATORYCLIA [id number] [address] OF [place] Platelets (Bld) [#/Vol] 284 10*3/uL Normal 150-400 [facility] Comment on above: Order Comment: Speci men Type: BLOOD SPECIMENOrdering Facility: [facility] Address: [address] [place] [address] Performed By: #### 5 8410-2 ####[facility] LABORATORYCLIA [id number] [address] STATES OF [facility] RBC (Bld) [#/Vol] 2.34 10*6/uL Low 3.90-5.20 [facility] Comment on above: Order Comment: Speci men Type: BLOOD SPECIMENOrdering Facility: [facility] Address: [address] [place] [address] Performed By: #### 5 8410-2 ####[facility] LABORATORYCLIA [id number] [address] OF [place] WBC (Bld) [#/Vol] 10.97 10*3/uL Normal 3.70-11.00 [facility] Comment on above: Order Comment: Speci men Type: BLOOD SPECIMENOrdering Facility: [facility] Address: [address] [place] [address] Performed By: #### 5 8410-2 ####[facility] LABORATORYCLIA [id number] [address] OF [facility] Erythrocyte distribution width (RBC) [Ratio] 16.2 % High 11.5-15.0 [facility] Comment on above: Order Comment: Speci men Type: BLOOD SPECIMENOrdering Facility: [facility] Address: [address] [place] [address] Performed By: #### 5 8410-2 ####[facility] LABORATORYCLIA [id number] [address] OF [facility] Hematocrit (Bld) [Volume fraction] 15.9 % Low 36.0-46.0 [facility] Comment on above: Order Comment: Speci men Type: BLOOD SPECIMENOrdering Facility: [facility] Address: [address] [place] [address] Performed By: #### 5 8410-2 ####[facility] LABORATORYCLIA [id number] [address] OF [place] Hemoglobin (Bld) [Mass/Vol] 5.0 g/dL Critically low 11.5-15.5 [facility] Comment on above: Order Comment: Speci men Type: BLOOD SPECIMENOrdering Facility: [facility] Address: [address] [place] [address] Performed By: #### 5 8410-2 ####[facility] LABORATORYCLIA [id number] [address] MCH (RBC) [Entitic mass] 29.8 pg Normal 26.0-34.0 [facility] Comment on above: Order Comment: Speci men Type: BLOOD SPECIMENOrdering Facility: [facility] Address: [address] [place] [address] Performed By: #### 5 8410-2 ####[facility] LABORATORYCLIA [id number] [address] MCHC (RBC) [Mass/Vol] 31.4 g/dL Normal 30.5-36.0 [facility] Comment on above: Order Comment: Speci men Type: BLOOD SPECIMENOrdering Facility: [facility] Address: [address] [place] [address] Performed By: #### 5 8410-2 ####[facility] LABORATORYCLIA [id number] [address] MCV (RBC) [Entitic vol] 94.6 fL Normal 80.0-100.0 [facility] Comment on above: Order Comment: Speci men Type: BLOOD SPECIMENOrdering Facility: [facility] Address: [address] [place] [address] Performed By: #### 5 8410-2 ####[facility] LABORATORYCLIA [id number] [address] Nucleated RBC (Bld) [#/Vol] 10*3/uL Normal <0.01 [facility] Comment on above: Order Comment: Speci men Type: BLOOD SPECIMENOrdering Facility: [facility] Address: [address] [place] [address] Performed By: #### 5 8410-2 ####[facility] LABORATORYCLIA [id number] [address] [place] Platelet mean volume (Bld) [Entitic vol] 10.6 fL Normal 9.0-12.7 [facility] Comment on above: Order Comment: Speci men Type: BLOOD SPECIMENOrdering Facility: [facility] Address: [address] [place] [address] Performed By: #### 5 8410-2 ####[facility] LABORATORYCLIA [id number] [place] [address] [place] Platelets (Bld) [#/Vol] 191 10*3/uL Normal 150-400 [facility] Comment on above: Order Comment: Speci men Type: BLOOD SPECIMENOrdering Facility: [facility] Address: [address] [place] [address] Result Comment: No c lot detected. Performed By: #### 5 8410-2 ####[facility] LABORATORYCLIA [id number] [place] [address] [place] RBC (Bld) [#/Vol] 1.68 10*6/uL Low 3.90-5.20 [facility] Comment on above: Order Comment: Speci men Type: BLOOD SPECIMENOrdering Facility: [facility] Address: [address] [place] [address] Performed By: #### 5 8410-2 ####[facility] LABORATORYCLIA [id number] [place] [address] [place] WBC (Bld) [#/Vol] 8.31 10*3/uL Normal 3.70-11.00 [facility] Comment on above: Order Comment: Speci men Type: BLOOD SPECIMENOrdering Facility: [facility] Address: [address] [place] [address] Performed By: #### 5 8410-2 ####[facility] LABORATORYCLIA [id number] [address] OF [place] CONSULT PROGon 05-07-2024 CONSULT PROG Normal [facility] CT BRAIN WO IVCONon 05-07-[address] BRAIN WO IVCON Normal [facility] CT BRAIN WO IVCON Normal [facility] Calcium.ionized [Moles/Vol]o n 05-07-2024 Calcium.ionized (BldV) [Mass/Vol] 1.06 mmol/L Low 1.08-1.30 [facility] Comment on above: Order Comment: Speci men Type: BLOOD SPECIMENOrdering Facility: [facility] Address: [address] [place] [address] Performed By: #### 1 995-0 ####[facility] LABORATORYCLIA [id number] [address] [place] Calcium.ionized adjusted to pH 7.4 (Bld) [Moles/Vol] 1.07 mmol/L Low 1.08-1.30 [facility] Comment on above: Order Comment: Speci men Type: BLOOD SPECIMENOrdering Facility: [facility] Address: [address] [place] [address] Performed By: #### 1 995-0 ####[facility] LABORATORYCLIA [id number] [address] [place] Calcium.ionized (BldV) [Mass/Vol] 1.07 mmol/L Low 1.08-1.30 [facility] Comment on above: Order Comment: Speci men Type: BLOOD SPECIMENOrdering Facility: [facility] Address: [address] [place] [address] Performed By: #### 1 995-0 ####[facility] LABORATORYCLIA [id number] [address] [place] Calcium.ionized adjusted to pH 7.4 (Bld) [Moles/Vol] 1.09 mmol/L Normal 1.08-1.30 [facility] Comment on above: Order Comment: Speci men Type: BLOOD SPECIMENOrdering Facility: [facility] Address: [address] [place] [address] Performed By: #### 1 995-0 ####[facility] LABORATORYCLIA [id number] [place] [address] [place] Magnesium SerPl-mCncon 05-07 Magnesium [Mass/Vol] 1.1 mg/dL Low 1.7-2.3 [facility] Comment on above: Order Comment: Speci men Type: BLOOD SPECIMENOrdering Facility: [facility] Address: [address] [place] [address] Performed By: #### 2 777-1, 00559-1, ####[facility]ORATORYCLIA [id number] [place] [address] [place] Magnesium [Mass/Vol] 1.5 mg/dL Low 1.7-2.3 [facility] Comment on above: Order Comment: Speci men Type: BLOOD SPECIMENOrdering Facility: [facility] Address: [address] [place] [address] Performed By: #### 2 777-1, , ####[facility] LABORATORYCLIA [id number] [address] [place] OF [place] NURSING PROGon 05-07-2024 NURSING PROG Normal [facility] NURSING PROG Normal [facility] OPERATIVE NOon 05-07-2024 OPERATIVE NO Normal [facility] Phosphate SerPl-mCncon 05-07 Phosphate [Mass/Vol] 2.1 mg/dL Low 2.7-4.8 [facility] Comment on above: Order Comment: Speci men Type: BLOOD SPECIMENOrdering Facility: [facility] Address: [address] [place] [address] Performed By: #### 2 777-1, , ####[facility]ORATORYCLIA [id number] [place] [id number] [place] Phosphate [Mass/Vol] 2.6 mg/dL Low 2.7-4.8 [facility] Comment on above: Order Comment: Speci men Type: BLOOD SPECIMENOrdering Facility: [facility] Address: [address] [place] [address] Performed By: #### 2 777-1, 18760-7, ####[facility]ORATORYCLIA [id number] [place] [address] [place] THERAPY NTon 05-07-2024 THERAPY NT Normal [facility] XR ABDOMEN 1V SUPINEon 05-07 XR ABDOMEN 1V SUPINE Normal [facility] XR CHEST 1V FRONTALon 2023 XR CHEST 1V FRONTAL Normal [facility] XR FEMUR 2V AP/LAT LTon XR FEMUR 2V AP/LAT LT Normal [facility] ALLIED HEALTHon 05-06-2024 ALLIED HEALTH Normal [facility] ANES POSTPROC EVALon 024 ANES POSTPROC EVAL Normal [facility] ANES PRE-OPon 05-06-2024 ANES PRE-OP Normal [facility] Basic Metabolic Profile (BMP )on 05-06-2024 BUN/CRE 29.7 RATIO High 10-20 [facility] Comment on above: Performed By: #### L 500.2500, L100.0100 #### [facility] [address] [place], [address] CA,Total 8.6 mg/dL Normal 8.5-10.1 [facility] Comment on above: Performed By: #### L 500.2500, L100.0100 #### [facility] [address] [place], [address] Chloride [Moles/Vol] 109 mmol/L High 98-107 [facility] Comment on above: Performed By: #### L 500.2500, L100.0100 #### [facility] [address] [place], [address] CO2 [Moles/Vol] 24.0 mmol/L Normal 21.0-32.0 [facility] Comment on above: Performed By: #### L 500.2500, L100.0100 #### [facility] [address] [place], [address] Creatinine [Mass/Vol] 0.57 mg/dL Normal 0.55-1.02 [facility] Comment on above: Result Comment: The validity of the calculated GFR GFRAA in patients over 70 years has not been determined. Clinical correlation is essential. Performed By: #### L 500.2500, L100.0100 #### [facility] [address] [place], [address] ECRCL 60.00 ml/min Normal [facility] Comment on above: Performed By: #### L 500.2500, L100.0100 #### [facility] [address] [place], [address] EST GFR - AA 130 mL/min Normal >60 [facility] Comment on above: Result Comment: Afri can [place] GFR Calc Performed By: #### L 500.2500, L100.0100 #### [facility] [address] [place], [address] GAP 7 Normal 5-15 [facility] Comment on above: Performed By: #### L 500.2500, L100.0100 #### [facility] [address] [place], [address] GFR/1.73 sq M.predicted among non-blacks MDRD (S/P/Bld) [Vol rate/Area] 107 mL/min/{1.73_m2} Normal >60 [facility] Comment on above: Result Comment: Non- GFR Calc Performed By: #### L 500.2500, L100.0100 #### [facility] [address] [place], [address] Glucose [Mass/Vol] 134 mg/dL High 74-106 [facility] Comment on above: Result Comment: Fast ing Glucose result greater than or equal to 126 mg/dL suggests DIABETES MELLITUS per A.D.A. criteria. Performed By: #### L 500.2500, L100.0100 #### [facility] [address] [place], [address] Potassium [Moles/Vol] 3.6 mmol/L Normal 3.5-5.1 [facility] Comment on above: Result Comment: Slig ht Hemolysis, Result may be falsely increased. Performed By: #### L 500.2500, L100.0100 #### [facility] [address] [place], [address] Sodium [Moles/Vol] 140 mmol/L Normal 136-145 [facility] Comment on above: Performed By: #### L 500.2500, L100.0100 #### [facility] [address] [place], [address] Urea nitrogen [Mass/Vol] 17 mg/dL Normal 7-18 [facility] Comment on above: Performed By: #### L 500.2500, L100.0100 #### [facility] [address] [place], [address] Basic metabolic 2000 panelon 05-06-2024 Anion gap [Moles/Vol] 11 mmol/L Normal 8-15 [facility] Comment on above: Order Comment: Speci men Type: BLOOD SPECIMENOrdering Facility: [facility] Address: [address] [place] [address] Performed By: #### 2 432-2, ####[facility] LABORATORYCLIA [id number] [place] [address] [place] Calcium [Mass/Vol] 8.5 mg/dL Normal 8.5-10.2 [facility] Comment on above: Order Comment: Speci men Type: BLOOD SPECIMENOrdering Facility: [facility] Address: [address] [place] [address] Performed By: #### 2 432-2, ####[facility] LABORATORYCLIA [id number] [place] [address] [place] Chloride [Moles/Vol] 103 mmol/L Normal 98-107 [facility] Comment on above: Order Comment: Speci men Type: BLOOD SPECIMENOrdering Facility: [facility] Address: [address] [place] [address] Performed By: #### 2 43206-01, ####[facility] LABORATORYCLIA [id number] [place] [id number] [place] [facility] CO2 [Moles/Vol] 24 mmol/L Normal 22-30 [facility] Comment on above: Order Comment: Speci men Type: BLOOD SPECIMENOrdering Facility: [facility] Address: [address] [place] [address] Performed By: #### 2 4320-07, ####[facility] LABORATORYCLIA [id number] [address] OF [facility] Creatinine [Mass/Vol] 0.56 mg/dL Low 0.58-0.96 [facility] Comment on above: Order Comment: Speci men Type: BLOOD SPECIMENOrdering Facility: [facility] Address: [address] [place] [address] Performed By: #### 2 4320-07, ####[facility] LABORATORYCLIA [id number] [address] Creatinine and Glomerular filtration rate.predicted panel (S/P/Bld) 91 mL/min/1.73m??? Normal >=60 [facility] Comment on above: Order Comment: Speci men Type: BLOOD SPECIMENOrdering Facility: [facility] Address: [address] [place] [address] Result Comment: Kaylene mated Glomerular Filtration Rate [...] reflect actual GFR. Performed By: #### 2 43206-01, ####[facility] LABORATORYCLIA [id number] [place] [id number] [place] Glucose [Mass/Vol] 161 mg/dL High 74-99 [facility] Comment on above: Order Comment: Speci men Type: BLOOD SPECIMENOrdering Facility: [facility] Address: [address] [place] [address] Result Comment: The [place] [employer] (ADA) provides guidance for cutoff [...] Standards of Medical Care in Diabetes 2016, [place] [employer]. Diabetes Care. 2016.39(Suppl 1). Performed By: #### 2 432-, ####[facility] LABORATORYCLIA [id number] [place] [address] [place] Potassium [Moles/Vol] 3.8 mmol/L Normal 3.7-5.1 [facility] Comment on above: Order Comment: Helen rg Type: BLOOD SPECIMENOrdering Facility: [facility] Address: [address] [place] [address] Performed By: #### 2 432-, ####[facility] LABORATORYCLIA [id number] [place] [address] [place] Sodium [Moles/Vol] 138 mmol/L Normal 136-144 [facility] Comment on above: Order Comment: Bernardoi men Type: BLOOD SPECIMENOrdering Facility: [facility] Address: [address] [place], [place] [address] Performed By: #### 2 4320-07, ####[facility] LABORATORYCLIA [id number] [place] [address] [place] Urea nitrogen [Mass/Vol] 15 mg/dL Normal 7-21 [facility] Comment on above: Order Comment: Speci men Type: BLOOD SPECIMENOrdering Facility: [facility] Address: [address] [place] [address] Performed By: #### 2 4321-2, 34699-9 ####[facility] LABORATORYCLIA [id number] [place] [address] [place] Anion gap [Moles/Vol] 7 mmol/L Low 8-15 [facility] Comment on above: Order Comment: Speci men Type: BLOOD SPECIMENOrdering Facility: [facility] Address: [address] [place] [address] Performed By: #### 1 9123-9, 27711-28, 22126-3 ####[facility] LABORATORYCLIA [id number] [place] [address] [place] Calcium [Mass/Vol] 3.9 mg/dL Low 8.5-10.2 [facility] Comment on above: Order Comment: Speci men Type: BLOOD SPECIMENOrdering Facility: [facility] Address: [address] [place] [address] Performed By: #### 1 9123-9, 27711-28, 33548-8 ####[facility] LABORATORYCLIA [id number] [place] [address] [place] Chloride [Moles/Vol] 124 mmol/L High 98-107 [facility] Comment on above: Order Comment: Speci men Type: BLOOD SPECIMENOrdering Facility: [facility] Address: [address] [place] [address] Performed By: #### 1 9123-9, 2776-05, 74336-6 ####[facility] LABORATORYCLIA [id number] [place] [address] [place] CO2 [Moles/Vol] 12 mmol/L Low 22-30 [facility] Comment on above: Order Comment: Speci men Type: BLOOD SPECIMENOrdering Facility: [facility] Address: [address] [place] [address] Performed By: #### 1 9123-9, 2771, 30121-1 ####[facility] LABORATORYCLIA [id number] [place], [place] [address] [place] [address] [place] [facility] Creatinine [Mass/Vol] 0.25 mg/dL Low 0.58-0.96 [facility] Comment on above: Order Comment: Helen rg Type: BLOOD SPECIMENOrdering Facility: [facility] Address: [address] [place] [address] Performed By: #### 1 9123-9, 2777-1, 29446-0 ####[facility] LABORATORYCLIA [id number] [address] Creatinine and Glomerular filtration rate.predicted panel (S/P/Bld) 111 mL/min/1.73m??? Normal >=60 [facility] Comment on above: Order Comment: Helen rg Type: BLOOD SPECIMENOrdering Facility: [facility] Address: [address] [place] [address] Result Comment: Kaylene mated Glomerular Filtration Rate [...] GFR. Performed By: #### 1 9123-9, 2777-1, 00525-1 ####[facility] LABORATORYCLIA [id number] [address] Glucose [Mass/Vol] 94 mg/dL Normal 74-99 [facility] Comment on above: Order Comment: Helen rg Type: BLOOD SPECIMENOrdering Facility: [facility] Address: [address] [place] [address] Result Comment: The [place] Diabetes Association (ADA) provides guidance for cutoff [...] Standards of Medical Care in Diabetes 2016, [place] [employer]. Diabetes Care. 2016.39(Suppl 1). Performed By: #### 1 9123-9, 2777-1, 32746-7 ####[facility] LABORATORYCLIA [id number] [place] [address] [place] Potassium [Moles/Vol] 1.8 mmol/L Critically low 3.7-5.1 [facility] Comment on above: Order Comment: Speci men Type: BLOOD SPECIMENOrdering Facility: [facility] Address: [address] [place] [address] Performed By: #### 1 9123-9, 27711-28, 89292-4 ####[facility] LABORATORYCLIA [id number] [place] [address] [place] Sodium [Moles/Vol] 143 mmol/L Normal 136-144 [facility] Comment on above: Order Comment: Speci men Type: BLOOD SPECIMENOrdering Facility: [facility] Address: [address] [place] [address] Performed By: #### 1 9123-9, 2776-05, 93863-9 ####[facility] LABORATORYCLIA [id number] [place] [address] [place] Urea nitrogen [Mass/Vol] 8 mg/dL Normal 7-21 [facility] Comment on above: Order Comment: Speci men Type: BLOOD SPECIMENOrdering Facility: [facility] Address: [address] [place] [address] Performed By: #### 1 9123-9, 27711-28, 86958-1 ####[facility] LABORATORYCLIA [id number] [place] [address] [place] Anion gap [Moles/Vol] 8 mmol/L Normal 8-15 [facility] Comment on above: Order Comment: Speci men Type: BLOOD SPECIMENOrdering Facility: [facility] Address: [address] [place] [id number] Performed By: #### 2 4321-2 ####[facility] LABORATORYCLIA [id number] [address] [place] Calcium [Mass/Vol] 3.4 mg/dL Low 8.5-10.2 [facility] Comment on above: Order Comment: Speci men Type: BLOOD SPECIMENOrdering Facility: [facility] Address: [address] [place] [address] Performed By: #### 2 4321-2 ####[facility] LABORATORYCLIA [id number] [address] [place] Chloride [Moles/Vol] 102 mmol/L Normal 98-107 [facility] Comment on above: Order Comment: Speci men Type: BLOOD SPECIMENOrdering Facility: [facility] Address: [address] [place] [address] Performed By: #### 2 4321-2 ####[facility] LABORATORYCLIA [id number] [address] OF [facility] CO2 [Moles/Vol] 10 mmol/L Low 22-30 [facility] Comment on above: Order Comment: Speci men Type: BLOOD SPECIMENOrdering Facility: [facility] Address: [address] [place] [address] Performed By: #### 2 4321-2 ####[facility] LABORATORYCLIA [id number] [address] [place] Creatinine [Mass/Vol] 0.25 mg/dL Low 0.58-0.96 [facility] Comment on above: Order Comment: Speci men Type: BLOOD SPECIMENOrdering Facility: [facility] Address: [address] [place] [address] Performed By: #### 2 4321-2 ####[facility] LABORATORYCLIA [id number] [address] Creatinine and Glomerular filtration rate.predicted panel (S/P/Bld) 111 mL/min/1.73m??? Normal >=60 [facility] Comment on above: Order Comment: Speci men Type: BLOOD SPECIMENOrdering Facility: [facility] Address: [address] [place] [address] Result Comment: Kaylene mated Glomerular Filtration Rate [...] actual GFR. Performed By: #### 2 4321-2 ####[facility] LABORATORYCLIA [id number] [place] [address] [place] Glucose [Mass/Vol] 85 mg/dL Normal 74-99 [facility] Comment on above: Order Comment: Helen rg Type: BLOOD SPECIMENOrdering Facility: [facility] Address: [address] [place] [address] Result Comment: The [place] Diabetes [employer] (ADA) provides guidance for cutoff [...] Standards of Medical Care in Diabetes 2016, [place] [employer]. Diabetes Care. 2016.39(Suppl 1). Performed By: #### 2 4321-2 ####[facility] LABORATORYCLIA [id number] [place] [address] [place] Potassium [Moles/Vol] 1.7 mmol/L Critically low 3.7-5.1 [facility] Comment on above: Order Comment: Helen rg Type: BLOOD SPECIMENOrdering Facility: [facility] Address: [address] [place] [id number] Performed By: #### 2 4321-2 ####[facility] LABORATORYCLIA [id number] [place] [address] [place] [facility] Sodium [Moles/Vol] 120 mmol/L Low 136-144 [facility] Comment on above: Order Comment: Speci men Type: BLOOD SPECIMENOrdering Facility: [facility] Address: [address] [place] [address] Performed By: #### 2 4321-2 ####[facility] LABORATORYCLIA [id number] [place] [id number] [place] Urea nitrogen [Mass/Vol] 8 mg/dL Normal 7-21 [facility] Comment on above: Order Comment: Speci men Type: BLOOD SPECIMENOrdering Facility: [facility] Address: [address] [place] [address] Performed By: #### 2 4321-2 ####[facility] LABORATORYCLIA [id number] [place] [id number] [place] CBC W/Diff, Automatedon 12-0 Absolute Lymph 1.89 X10 3/uL Normal 0.83-4.51 [facility] Comment on above: Performed By: #### L 500.2500, L100.0100 #### [facility] [address] [place], [address] Absolute Neut 4.9 X10 3/uL Normal 2.0-7.7 [facility] Comment on above: Performed By: #### L 500.2500, L100.0100 #### [facility] [address] [place], [address] Basophils/100 WBC (Bld) 0.6 % Normal 0-1 [facility] Comment on above: Performed By: #### L 500.2500, L100.0100 #### [facility] [address] [place], [address] Eosinophils/100 WBC (Bld) 2.6 % Normal 0-5 [facility] Comment on above: Performed By: #### L 500.2500, L100.0100 #### [facility] [address] [place], [address] Erythrocyte distribution width (RBC) [Ratio] 15.9 % High 11.6-14.6 [facility] Comment on above: Performed By: #### L 500.2500, L100.0100 #### [facility] [address] [place], [address] Hematocrit (Bld) [Volume fraction] 36.9 % Low 37-47 [facility] Comment on above: Performed By: #### L 500.2500, L100.0100 #### [facility] [address] [place], [address] Hemoglobin (Bld) [Mass/Vol] 11.4 g/dL Low 12.0-15.0 [facility] Comment on above: Performed By: #### L 500.2500, L100.0100 #### [facility] [address] [place], [address] IG% 1.500 High 0.0-0.9 [facility] Comment on above: Result Comment: IG% - Immature Granulocytes (promyelocytes, myelocytes and metamyelocytes) > 1% indicates that a LEFT SHIFT is Present. Performed By: #### L 500.2500, L100.0100 #### [facility] [address] [place], [address] Lymphocytes/100 WBC (Bld) 23.6 % Normal 19-41 [facility] Comment on above: Performed By: #### L 500.2500, L100.0100 #### [facility] [address] [place], [address] MCH (RBC) [Entitic mass] 28.6 pg Normal 27.0-32.0 [facility] Comment on above: Performed By: #### L 500.2500, L100.0100 #### [facility] [address] [place], [address] MCHC (RBC) [Mass/Vol] 30.9 g/dL Low 32-36 [facility] Comment on above: Performed By: #### L 500.2500, L100.0100 #### [facility] [address] [place], [address] MCV (RBC) [Entitic vol] 92.5 fL Normal 81-99 [facility] Comment on above: Performed By: #### L 500.2500, L100.0100 #### [facility] [address] [place], [address] Monocytes/100 WBC (Bld) 10.4 % High 0-10 [facility] Comment on above: Performed By: #### L 500.2500, L100.0100 #### [facility] [address] [place], [address] Neutrophils/100 WBC (Bld) 61.3 % Normal 47-70 [facility] Comment on above: Performed By: #### L 500.2500, L100.0100 #### [facility] [address] [place], [address] Nucleated RBC (Bld) [#/Vol] 0 10*3/uL Normal 0-5 [facility] Comment on above: Performed By: #### L 500.2500, L100.0100 #### [facility] [address] [place], [address] Platelet mean volume (Bld) [Entitic vol] 10.7 fL Normal 6.2-12.0 [facility] Comment on above: Performed By: #### L 500.2500, L100.0100 #### [facility] [address] [place], [address] Platelets (Bld) [#/Vol] 373 10*3/uL Normal 150-450 [facility] Comment on above: Performed By: #### L 500.2500, L100.0100 #### [facility] [address] [place], [address] RBC (Bld) [#/Vol] 3.99 10*6/uL Low 4.2-5.4 [facility] Comment on above: Performed By: #### L 500.2500, L100.0100 #### [facility] [address] [place], [address] RDW SD 54.1 fl High 35.1-43.9 [facility] Comment on above: Performed By: #### L 500.2500, L100.0100 #### [facility] [address] [place], [address] WBC (Bld) [#/Vol] 8.0 10*3/uL Normal 4.4-11.0 [facility] Comment on above: Performed By: #### L 500.2500, L100.0100 #### [facility] [address] [place], [address] CBC panel Auto (Bld)on 05-06 Erythrocyte distribution width (RBC) [Ratio] 15.7 % High 11.5-15.0 [facility] Comment on above: Order Comment: Speci men Type: BLOOD SPECIMENOrdering Facility: [facility] Address: [address] [place] [address] Performed By: #### 5 8410-2 ####[facility] LABORATORYCLIA [id number] [address] STATES OF [facility] Hematocrit (Bld) [Volume fraction] 29.8 % Low 36.0-46.0 [facility] Comment on above: Order Comment: Speci men Type: BLOOD SPECIMENOrdering Facility: [facility] Address: [address] [place] [address] Performed By: #### 5 8410-2 ####[facility] LABORATORYCLIA [id number] [address] [place] Hemoglobin (Bld) [Mass/Vol] 9.4 g/dL Low 11.5-15.5 [facility] Comment on above: Order Comment: Speci men Type: BLOOD SPECIMENOrdering Facility: [facility] Address: [address] [place] [address] Performed By: #### 5 8410-2 ####[facility] LABORATORYCLIA [id number] [address] MCH (RBC) [Entitic mass] 29.7 pg Normal 26.0-34.0 [facility] Comment on above: Order Comment: Speci men Type: BLOOD SPECIMENOrdering Facility: [facility] Address: [address] [place] [address] Performed By: #### 5 8410-2 ####[facility] LABORATORYCLIA [id number] [address] MCHC (RBC) [Mass/Vol] 31.5 g/dL Normal 30.5-36.0 [facility] Comment on above: Order Comment: Speci men Type: BLOOD SPECIMENOrdering Facility: [facility] Address: [address] [place] [address] Performed By: #### 5 8410-2 ####[facility] LABORATORYCLIA [id number] [address] MCV (RBC) [Entitic vol] 94.0 fL Normal 80.0-100.0 [facility] Comment on above: Order Comment: Speci men Type: BLOOD SPECIMENOrdering Facility: [facility] Address: [address] [place] [address] Performed By: #### 5 8410-2 ####[facility] LABORATORYCLIA [id number] [address] Nucleated RBC (Bld) [#/Vol] 10*3/uL Normal <0.01 [facility] Comment on above: Order Comment: Speci men Type: BLOOD SPECIMENOrdering Facility: [facility] Address: [address] [place] [address] Performed By: #### 5 8410-2 ####[facility] LABORATORYCLIA [id number] [address] [place] Platelet mean volume (Bld) [Entitic vol] 10.6 fL Normal 9.0-12.7 [facility] Comment on above: Order Comment: Speci men Type: BLOOD SPECIMENOrdering Facility: [facility] Address: [address] [place] [address] Performed By: #### 5 8410-2 ####[facility] LABORATORYCLIA [id number] [place] [address] [place] Platelets (Bld) [#/Vol] 283 10*3/uL Normal 150-400 [facility] Comment on above: Order Comment: Speci men Type: BLOOD SPECIMENOrdering Facility: [facility] Address: [address] [place] [address] Performed By: #### 5 8410-2 ####[facility] LABORATORYCLIA [id number] [address] [place] RBC (Bld) [#/Vol] 3.17 10*6/uL Low 3.90-5.20 [facility] Comment on above: Order Comment: Speci men Type: BLOOD SPECIMENOrdering Facility: [facility] Address: [address] [place] [address] Performed By: #### 5 8410-2 ####[facility] LABORATORYCLIA [id number] [address] [place] WBC (Bld) [#/Vol] 10.85 10*3/uL Normal 3.70-11.00 [facility] Comment on above: Order Comment: Speci men Type: BLOOD SPECIMENOrdering Facility: [facility] Address: [address] [place] [address] Performed By: #### 5 8410-2 ####[facility] LABORATORYCLIA [id number] [address] [place] Erythrocyte distribution width (RBC) [Ratio] 15.9 % High 11.5-15.0 [facility] Comment on above: Order Comment: Speci men Type: BLOOD SPECIMENOrdering Facility: [facility] Address: [address] [place] [address] Performed By: #### 5 8410-2 ####[facility] LABORATORYCLIA [id number] [address] STATES OF [facility] Hematocrit (Bld) [Volume fraction] 34.0 % Low 36.0-46.0 [facility] Comment on above: Order Comment: Speci men Type: BLOOD SPECIMENOrdering Facility: [facility] Address: [address] [place] [address] Performed By: #### 5 8410-2 ####[facility] LABORATORYCLIA [id number] [address] STATES OF [facility] Hemoglobin (Bld) [Mass/Vol] 10.7 g/dL Low 11.5-15.5 [facility] Comment on above: Order Comment: Speci men Type: BLOOD SPECIMENOrdering Facility: [facility] Address: [address] [place] [address] Performed By: #### 5 8410-2 ####[facility] LABORATORYCLIA [id number] [address] [place] MCH (RBC) [Entitic mass] 29.5 pg Normal 26.0-34.0 [facility] Comment on above: Order Comment: Speci men Type: BLOOD SPECIMENOrdering Facility: [facility] Address: [address] [place] [address] Performed By: #### 5 8410-2 ####[facility] LABORATORYCLIA [id number] [address] [place] MCHC (RBC) [Mass/Vol] 31.5 g/dL Normal 30.5-36.0 [facility] Comment on above: Order Comment: Speci men Type: BLOOD SPECIMENOrdering Facility: [facility] Address: [address] [place] [address] Performed By: #### 5 8410-2 ####[facility] LABORATORYCLIA [id number] [address] MCV (RBC) [Entitic vol] 93.7 fL Normal 80.0-100.0 [facility] Comment on above: Order Comment: Speci men Type: BLOOD SPECIMENOrdering Facility: [facility] Address: [address] [place] [address] Performed By: #### 5 8410-2 ####[facility] LABORATORYCLIA [id number] [address] [place] Nucleated RBC (Bld) [#/Vol] 10*3/uL Normal <0.01 [facility] Comment on above: Order Comment: Speci men Type: BLOOD SPECIMENOrdering Facility: [facility] Address: [address] [place] [address] Performed By: #### 5 8410-2 ####[facility] LABORATORYCLIA [id number] [address] Platelet mean volume (Bld) [Entitic vol] 11.2 fL Normal 9.0-12.7 [facility] Comment on above: Order Comment: Speci men Type: BLOOD SPECIMENOrdering Facility: [facility] Address: [address] [place] [address] Performed By: #### 5 8410-2 ####[facility] LABORATORYCLIA [id number] [address] Platelets (Bld) [#/Vol] 355 10*3/uL Normal 150-400 [facility] Comment on above: Order Comment: Speci men Type: BLOOD SPECIMENOrdering Facility: [facility] Address: [address] [place] [address] Performed By: #### 5 8410-2 ####[facility] LABORATORYCLIA [id number] [address] [place] RBC (Bld) [#/Vol] 3.63 10*6/uL Low 3.90-5.20 [facility] Comment on above: Order Comment: Speci men Type: BLOOD SPECIMENOrdering Facility: [facility] Address: [address] [place] [address] Performed By: #### 5 8410-2 ####[facility]ORATORYCLIA [id number] [address] [place] WBC (Bld) [#/Vol] 12.97 10*3/uL High 3.70-11.00 [facility] Comment on above: Order Comment: Speci men Type: BLOOD SPECIMENOrdering Facility: [facility] Address: [address] [place] [address] Performed By: #### 5 8410-2 ####[facility] LABORATORYCLIA [id number] [address] OF [place] CONSULTon 05-06-2024 CONSULT Normal [facility] CONSULT Normal [facility] CONSULT Normal [facility] CT ABD/PEL W IVCONon 024 CT ABD/PEL W IVCON Normal [facility] CT BRAIN WO IVCONon 05-06-[address] BRAIN WO IVCON Normal [facility] CT BRAIN WO IVCON Invalid Interpretation Code [facility] Calcium.ionized [Moles/Vol]o n 05-06-2024 Calcium.ionized (BldV) [Mass/Vol] 0.96 mmol/L Low 1.08-1.30 [facility] Comment on above: Order Comment: Speci men Type: BLOOD SPECIMENOrdering Facility: [facility] Address: [address] [place] [address] Performed By: #### 1 995-0 ####[facility] LABORATORYCLIA [id number] [address] Calcium.ionized adjusted to pH 7.4 (Bld) [Moles/Vol] 0.91 mmol/L Low 1.08-1.30 [facility] Comment on above: Order Comment: Speci men Type: BLOOD SPECIMENOrdering Facility: [facility] Address: [address] [place] [id number] Performed By: #### 1 995-0 ####[facility] LABORATORYCLIA [id number] [address] OF [place] ED NOTEon 05-06-2024 ED NOTE HNO ID: [id number] Author: RADHAMES YU RN Service: ? Author Type: Registered Nurse Type: ED Notes Filed: 05/06/2024 07:05 Note Text: Report given to Earline GUEVARA [facility] ED NOTE HNO ID: [id number] Author: WILBERT YOUNG RN Service: ? Author Type: Registered Nurse Type: ED Notes Filed: 05/06/2024 06:52 Note Text: Lab called this RN and needed a redraw for global hemostasis with lysis r/t time it took to arrive in lab. [facility] ED NOTE HNO ID: [id number] Author: RADHAMES YU RN Service: ? Author Type: Registered Nurse Type: ED Notes Filed: 05/06/2024 04:47 Note Text: Surgery resident and ortho resident at bedside. Knee immobilizer placed on pt by ortho resident [facility] ED NOTE HNO ID: [id number] Author: RADHAMES YU RN Service: ? Author Type: Registered Nurse Type: ED Notes Filed: 05/06/2024 04:17 Note Text: CT after Feiba [facility] ED NOTE HNO ID: [id number] Author: RADHAMES YU RN Service: ? Author Type: Registered Nurse Type: ED Notes Filed: 05/06/2024 03:49 Note Text: Pt returned from CT. CHEMICAL RADIATION TECHNICIAN with pt at this time [facility] ED NOTE HNO ID: [id number] Author: HEIDY TAVERAS RN Service: ? Author Type: Registered Nurse Type: ED Notes Filed: 05/06/2024 03:38 Note Text: Pharmacy notified, preparing FEIBA at this time. [facility] ED NOTE HNO ID: [id number] Author: RADHAMES YU RN Service: ? Author Type: Registered Nurse Type: ED Notes Filed: 05/06/2024 03:31 Note Text: CT notified [facility] ED NOTE HNO ID: [id number] Author: HEIDY TAVERAS RN Service: ? Author Type: Registered Nurse Type: ED Notes Filed: 05/06/2024 03:20 Note Text: Neurosurgery provider at bedside speaking w daughter / POA. Pt in XR at this time. Normal [facility] ED NOTE HNO ID: [id number] Author: CAROL MOTA RN Service: Nursing Author Type: Registered Nurse Type: ED Notes Filed: 05/06/2024 03:15 Note Text: Report given to ISMAEL Jacobo. Normal [facility] ED NOTE HNO ID: [id number] Author: CAROL MOTA RN Service: Nursing Author Type: Registered Nurse Type: ED Notes Filed: 05/06/2024 02:44 Note Text: XR notified pt is ready for scan. Normal [facility] ED PROV NOTEon 05-06-2024 ED PROV NOTE Normal [facility] ED PROV NOTE Normal [facility] GLOBAL HEMOSTASIS WITH LYSIS on 05-06-2024 Clot Lysis 30 Min post maximum clot amplitude TEG (Bld) [Length fraction] 0.0 % Normal 0.0-2.6 [facility] Comment on above: Order Comment: Speci men Type: BLOOD SPECIMENOrdering Facility: [facility] Address: [address] [place] [address] Performed By: #### T EGLYS ####[facility] LABORATORYCLIA [id number] [address] [place] Clotting time.extrinsic coagulation system activated Rotational TEG (Bld) 4.5 minutes Low 4.6-9.1 [facility] Comment on above: Order Comment: Speci men Type: BLOOD SPECIMENOrdering Facility: [facility] Address: [address] [place] [address] Performed By: #### T EGLYS ####[facility] LABORATORYCLIA [id number] [address] Maximum clot firmness.extrinsic coagulation system activated.platelets inhibited Rotational TEG (Bld) [Length] 67.3 mm Normal 52.0-70.0 [facility] Comment on above: Order Comment: Speci men Type: BLOOD SPECIMENOrdering Facility: [facility] Address: [address] [place] [address] Result Comment: 29.3 Performed By: #### T EGLYS ####[facility] LABORATORYCLIA [id number] [address] [place] THROMBOGRAPH INTERP Normal [facility] Comment on above: Order Comment: Helen rg Type: BLOOD SPECIMENOrdering Facility: [facility] Address: [address] [place] [address] Result Comment: A th romboelastograph (TEG) study [...] timely manner. Performed By: #### T EGLYS ####[facility] LABORATORYCLIA [id number] [address] [place] HISTORY PHYSICALon HISTORY PHYSICAL Normal [facility] HISTORY PHYSICAL Normal [facility] Magnesium SerPl-mCncon 05-06 Magnesium [Mass/Vol] 1.8 mg/dL Normal 1.7-2.3 [facility] Comment on above: Order Comment: Helen rg Type: BLOOD SPECIMENOrdering Facility: [facility] Address: [address] [place] [address] Performed By: #### 2 4321-2, 67932-8 ####[facility] LABORATORYCLIA [id number] [address] Magnesium [Mass/Vol] 0.8 mg/dL Low 1.7-2.3 [facility] Comment on above: Order Comment: Helen rg Type: BLOOD SPECIMENOrdering Facility: [facility] Address: [address] [place] [address] Performed By: #### 1 9123-9, 2777-1, 35048-0 ####[facility] LABORATORYCLIA [id number] [address] OF [facility] OPERATIVE NOon 05-06-2024 OPERATIVE NO Normal [facility] PT panel Coag (PPP)on 2023 INR Coag (PPP) [Relative time] {INR} Low 0.9-1.3 [facility] Comment on above: Order Comment: Speci men Type: BLOOD SPECIMENOrdering Facility: [facility] Address: [address] [place] [address] Result Comment: Ofelia min K Antagonist (VKA) Therapeutic Range: INR 2 to 3 (Target INR of 2.5)Note: For patients treated with VKA drugs, such as warfarin, the [place] [employer] 2012 Guideline recommends [...] of 3).Terry GH, et al. Chest 2012, 141:7S-47SNishimura RA, et al. [facility] 2017, 70: 252-289 Performed By: #### 3 4528-0 ####[facility] LABORATORYCLIA [id number] [address] [place] PT Coag (PPP) [Time] 9.5 s Low 9.7-13.0 [facility] Comment on above: Order Comment: Speci men Type: BLOOD SPECIMENOrdering Facility: [facility] Address: [address] [place] [address] Performed By: #### 3 4528-0 ####[facility] LABORATORYCLIA [id number] [place] [address] [place] Partial Thromboplast Timeon 05-06-2024 aPTT Coag (Bld) [Time] 26.8 s Normal 24.1-36.2 [facility] Comment on above: Performed By: #### L 300.4310, L300.3900 #### [facility] [address] [place], [address] Phosphate SerPl-mCncon 05-06 Phosphate [Mass/Vol] 1.7 mg/dL Low 2.7-4.8 [facility] Comment on above: Order Comment: Speci men Type: BLOOD SPECIMENOrdering Facility: [facility] Address: [address] [place] [address] Performed By: #### 1 9123-9, 2777-1, 00690-3 ####[facility]FORDSVILLECLIA [id number] [address] [place] Prothrombin Time w/INRon INR Coag (PPP) [Relative time] 1.1 {INR} Normal [facility] Comment on above: Performed By: #### L 300.4310, L300.3900 #### [facility] [address] [place], [address] PT Coag (PPP) [Time] 14.1 s Normal 11.7-14.9 [facility] Comment on above: Performed By: #### L 300.4310, L300.3900 #### [facility] [address] [place], [address] STAPHYLOCOCCUS AUREUS AND MR SA SCREEN, PCR, NASALon 05-06-2024 S. aureus and MRSA panel ANIKT+probe (Nose) Not detected Normal Not Detected [facility] Comment on above: Order Comment: Speci men Type: SWABOrdering Facility: [facility] Address: [address] [place] [address] Performed By: #### S APCR ####[facility] LABORATORYCLIA [id number] [place] [address] [place] TYPE + SCREENon 05-06-2024 ABO O Normal [facility] Comment on above: Order Comment: Speci men Type: BLOOD SPECIMENOrdering Facility: [facility] Address: [address] [place] [address] Performed By: #### T SCR ####[facility] BLOOD BANKCLIA [id number] [place] [id number] [place] Rh Nom (Bld) Positive Normal [facility] Comment on above: Order Comment: Speci men Type: BLOOD SPECIMENOrdering Facility: [facility] Address: [address] [place] [address] Performed By: #### T SCR ####[facility] BLOOD BANKCLIA [id number] [address] [place] TYPE AND SCREEN EXPIRATION 05/09/2024 23:59 Normal [facility] Comment on above: Order Comment: Speci men Type: BLOOD SPECIMENOrdering Facility: [facility] Address: [address] [place] [address] Performed By: #### T SCR ####[facility] BLOOD BANKCLIA [id number] [address] OF [place] XR ANKLE 3V AP/LAT/OBL LTon 05-06-2024 XR ANKLE 3V AP/LAT/OBL LT Normal [facility] XR CHEST 1V FRONTALon 2023 XR CHEST 1V FRONTAL Normal [facility] XR FEMUR 2V AP/LAT LTon XR FEMUR 2V AP/LAT LT Normal [facility] XR HIP 3V PELV+ AP/LAT LTon 05-06-2024 XR HIP 3V PELV+ AP/LAT LT Normal [facility] XR HIP 3V PELV+ AP/LAT RTon 05-06-2024 XR HIP 3V PELV+ AP/LAT RT Normal [facility] aPTT PPPon 05-06-2024 aPTT Coag (PPP) [Time] 27.0 s Normal 23.0-32.4 [facility] Comment on above: Order Comment: Speci men Type: BLOOD SPECIMENOrdering Facility: [facility] Address: [address] [place] [address] Performed By: #### 1 4979-9 ####[facility] LABORATORYCLIA [id number] [place] [address] [place] 25-hydroxyvitamin D3 [Mass/V ol]on 05-05-2024 Interpretation and review of laboratory results Normal [facility] The reference range interval was based on an analysis of samples from healthy adults and may not pertain to children from 0-18 years old. [facility] Absolute neutrophil countOrd ered By: Arden Leger on 05-05-2024 Neutrophils (Bld) [#/Vol] 4.9 10*3/uL 2.0-7.7 [facility] Basophil percentageOrdered B y: Arden Leger on 05-05-2024 Basophils/100 WBC (Bld) 0.6 % 0-1 [facility] Blood urea nitrogen (BUN)/cr eatinine ratioOrdered By: Arden Leger on 05-05-2024 Urea nitrogen/Creatinine [Mass ratio] 29.7 mg/mg High 10-20 [facility] Brain/Head without Contrasto n 05-05-2024 Brain/Head without Contrast [facility] Imaging Services [address] [place], [place] [address] Brain/Head without Contrast MR#: [id number] Acct: [id number] Name: MIRIAM DAVENPORT Rep #: [id number] : 1940 F 84 From: Raj Moody MD PCP: Dr. Guillaume Dominguez MD Status: REG ER Study: Brain/Head without Contrast Date of Exam: 11/21 Exam# [id number] Ordering Dr: Arden Leger MD ADDENDUM by Dr. Raj Moody MD on 05/06/24 at 0002 [id number] EXAM: CT HEAD WITHOUT INTRAVENOUS CONTRAST CLINICAL INDICATION: trauma TECHNIQUE: Multiple axial images were obtained of the head without intravenous contrast. This CT exam was performed using one or more of the following dose reduction techniques: automated exposure control, adjustment of the mA and/or kV according to patient size, and/or use of iterative reconstruction technique. RADIATION DOSE: CTDIvol = 44.99 mGy, DLP = 914.22 mGy-cm COMPARISON: Head CT 06/12/2023 FINDINGS: BRAIN AND EXTRA-AXIAL SPACES: Large, mixed density subdural hematoma overlying the right cerebral hemisphere measuring up to 2.1 cm in thickness. Mass effect on the underlying right cerebral hemisphere with associated midline shift to the left measuring up to 7 mm. Small foci of traumatic subarachnoid hemorrhage within sulci of the right frontal lobe anteriorly as well. No evidence of acute infarct. There is preservation of the mcfadden/white matter interface. Posterior fossa structures are unremarkable. Basal cisterns are patent. BONES/JOINTS: Unremarkable. No discrete lytic or blastic abnormalities. SINUSES: Unremarkable as visualized. Clear. MASTOID AIR CELLS: Unremarkable. Clear. ORBITS: Visualized globes, extraocular muscles, optic nerves and retrobulbar fat appear unremarkable. 05/06/24 0002 Date cc: Dr. Arden Leger MD; Dr. Guillaume Dominguez MD * Signed ADDENDUM by Dr. Raj Moody MD on 05/06/[address] 0002 [address]/Brain/Head without Contrast IMPRESSION: 1. Large, mixed density subdural hematoma overlying the right cerebral hemisphere measuring up to 2.1 cm in thickness. 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 2. Mass effect on the underlying right cerebral hemisphere with associated midline shift to the left measuring up to 7 mm. 3. Small foci of traumatic subarachnoid hemorrhage within sulci of the right frontal lobe anteriorly as well. N.B. : The above Results were Read Back by Raj Moody MD to Arden Leger MD, and understanding confirmed on 05/06/2024 00:12:26 (ET). Electronically Signed: Raj Moody MD at 0:02 EST , 05/06/24 0019 Date cc: Dr. Arden Leger MD; Dr. Guillaume Dominguez MD * Signed We are attempting to reach an attending provider to discuss findings. An addendum with communication details will be sent when the communication is complete. [id number] EXAM: CT HEAD WITHOUT INTRAVENOUS CONTRAST CLINICAL INDICATION: trauma TECHNIQUE: Multiple axial images were obtained of the head without intravenous contrast. This CT exam was performed using one or more of the following dose reduction techniques: automated exposure control, adjustment of the mA and/or kV according to patient size, and/or use of iterative reconstruction technique. RADIATION DOSE: CTDIvol = 44.99 mGy, DLP = 914.22 mGy-cm COMPARISON: Head CT 06/12/2023 FINDINGS: BRAIN AND EXTRA-AXIAL SPACES: Large, mixed density subdural hematoma overlying the right cerebral hemisphere measuring up to 2.1 cm in thickness. Mass effect on the underlying right cerebral hemisphere with associated midline shift to the left measuring up to 7 mm. Small foci of traumatic subarachnoid hemorrhage within sulci of the right frontal lobe anteriorly as well. No evidence of acute infarct. There is preservation of the mcfadden/white matter interface. Posterior fossa structures are unremarkable. Basal cisterns are patent. BONES/JOINTS: Unremarkable. No discrete lytic or blastic abnormalities. SINUSES: Unremarkable as visualized. Clear. MASTOID AIR CELLS: Unremarkable. Clear. ORBITS: Visualized globes, extraocular muscles, optic nerves and retrobulbar fat appear unremarkable. CT/Brain/Head without Contrast IMPRESSION: 1. Large, mixed density subdural hematoma overlying the right cerebral hemisphere measuring up to 2.1 cm in thickness. 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 2. Mass effect on the underlying right cerebral hemisphere with associated midline shift to the left measuring up to 7 mm. 3. Small foci of traumatic subarachnoid hemorrhage within sulci of the rig (more content not included)... Normal [facility] CBC panel Auto (Bld)on 05-05 Erythrocyte distribution width (RBC) [Ratio] 16.0 % High 11.5 - 15.0 % [facility] Hematocrit (Bld) [Volume fraction] 38.2 % 36.0 - 46.0 % [facility] Hemoglobin (Bld) [Mass/Vol] 12.1 g/dL 11.5 - 15.5 g/dL [facility] Interpretation and review of laboratory results Abnormal [facility] MCH (RBC) [Entitic mass] 28.8 pg 26.0 - 34.0 pg [facility] MCHC (RBC) [Mass/Vol] 31.7 g/dL 30.5 - 36.0 g/dL [facility] MCV (RBC) [Entitic vol] 91.0 fL 80.0 - 100.0 fL [facility] Nucleated RBC (Bld) [#/Vol] NINF [facility] Platelet mean volume (Bld) [Entitic vol] 10.0 fL 9.0 - 12.7 fL [facility] Platelets (Bld) [#/Vol] 362 10*3/uL [facility] RBC (Bld) [#/Vol] 4.20 10*6/uL 3.90 - 5.2 0 m/uL [facility] WBC (Bld) [#/Vol] 6.62 10*3/uL [facility] Carbon dioxide measurementOr dered By: Arden Leger on 05-05-2024 CO2 [Moles/Vol] 24.0 mmol/L 21.0-32.0 [facility] Chloride measurementOrdered By: Arden Leger on 05-05-2024 Chloride [Moles/Vol] 109 mmol/L High 98-107 [facility] Cobalamin (Vitamin B12) [Mas s/Vol]on 05-05-2024 Interpretation and review of laboratory results Normal [facility] Comprehensive metabolic 2000 panelOrdered By: Hayley Mark on 05-05-2024 Albumin [Mass/Vol] 3.6 g/dL Low 3.9 - 4.9 g/dL [facility] ALP [Catalytic activity/Vol] 147 U/L High 34 - 123 U/L [facility] ALT [Catalytic activity/Vol] 9 U/L 7 - 38 U/L [facility] Anion gap [Moles/Vol] 14 mmol/L 8 - 15 mmol/L [facility] AST [Catalytic activity/Vol] 15 U/L 13 - 35 U/L [facility] Bilirubin [Mass/Vol] 0.2 mg/dL 0.2 - 1 .3 mg/dL [facility] Calcium [Mass/Vol] 9.7 mg/dL 8.5 - 10. 2 mg/dL [facility] Chloride [Moles/Vol] 102 mmol/L 98 - 10 7 mmol/L [facility] CO2 [Moles/Vol] 22 mmol/L 22 - 30 mmol/L [facility] Creatinine [Mass/Vol] 0.59 mg/dL 0.58 - 0.96 mg/dL [facility] GFR/1.73 sq M.predicted among non-blacks MDRD (S/P/Bld) [Vol rate/Area] 90 mL/min/{1.73_m2} - PINF [facility] Comment on above: Estimated Glomerular Filtration [...] 164 mg/dL High 74 - 99 mg/dL [facility] Comment on above: The [place] Di[employer] Association (ADA) provides guidance for [...] Standards of Medical Care in Diabetes 2016, [place] [employer]. Diabetes Care. 2016.39(Suppl 1). Interpretation and review of laboratory results Abnormal [facility] Potassium [Moles/Vol] 3.8 mmol/L 3.7 - 5.1 mmol/L [facility] Protein [Mass/Vol] 6.8 g/dL 6.3 - 8.0 g/dL [facility] Sodium [Moles/Vol] 138 mmol/L 136 - 144 mmol/L [facility] Urea nitrogen [Mass/Vol] 18 mg/dL 7 - 21 mg/dL [facility] Emergency Department Summary on 05-05-2024 Emergency Department Summary [facility] Medical Records Department [address] [place] [address] Emergency Department Summary 05/05/24 MR#: [id number] Acct: [id number] Name: MIRIAM DAVENPORT Rep #: [id number] : 1940 84 From: Arden Leger MD PCP: Dr. Guillaume Dominguez MD Status:DEP ER Location: ED HPI HPI - Fall History of Present Illness Chief Complaint: Fall Narrative Narrative: History and physical limited secondary to dementia, according to her daughter who is visiting, patient had a fall back in December of this year, 4 months ago. She had surgery by Dr. Neely. She spent time in the [facility], then went to [facility]. She recently went back to assisted living with her approximately 3 weeks ago. Additionally, she was recently diagnosed with dementia 2 weeks ago. Her daughter states that they were trying on close today, and she was also taking her mother to various doctor appointments. She received a call that her mother was found after a fall and was lying in the closet. Patient does not remember what had happened or how she had fallen. Reportedly she went to bed earlier than her , but does not remember the fall. Patient has chronic low back pain and was recently getting injections. She complains of low back pain, but her daughter is concerned about her left ankle and her left knee because there is a red jessica on her left knee that was not there before, and her left ankle appears swollen. Patient denies any right leg pain. Her daughter states that she is the patient's power of estate planning attorney and makes all her decisions because of the dementia. She states that her mother has multiple allergies, but morphine would be the most effective in treating her pain given her multiple allergies. [facility] Medical History History of pernicious anemia History of pulmonary embolus (PE) History of hypercholesterolemia History of hypertension History of type 2 diabetes mellitus History of chest pain Diabetes mellitus, type 2 Obesity (BMI 30.0-34.9) Back fracture Diabetes HTN (hypertension) Pulmonary emboli Home Medications ???Medication ???Instructions ???Recorded ???Last Taken ???Type calcitriol 0.5 mcg capsule 0.5 mcg PO DAILY Supplement 03/04/15 Unknown History ascorbic acid (vitamin C) 500 mg 500 mg PO DAILY Supplement 03/31/19 Unknown History tablet calcium 600 mg (as 2 tab PO DAILY Supplement 03/31/19 Unknown History carbonate)-vitamin D3 5 mcg (200 unit) tablet cyanocobalamin (vitamin B-12) 1,000 mcg IM Q30D Supplement 03/31/19 Unknown History 1,000 mcg/mL injection solution multivitamin with minerals 1 ea PO DAILY Supplement 03/31/19 Unknown History oxybutynin chloride 10 mg 10 mg PO QHS overactive bladder 03/31/19 Unknown History tablet,extended release 24 hr apixaban 5 mg tablet 5 mg PO BID Anticoagulant #74 tabs 08/27/20 Unknown Rx cholecalciferol (vitamin D3) 50 100 mcg PO DAILY Supplement 01/10/24 Unknown History mcg (2,000 unit) capsule duloxetine 20 mg capsule,delayed 40 mg PO DAILY Depression 01/10/24 Unknown History release (Cymbalta) ferrous sulfate 325 mg (65 mg 325 mg PO DAILY Supplement 01/10/24 Unknown History iron) tablet (Iron (ferrous sulfate)) fluconazole 200 mg tablet 200 mg PO MOWEFR Antifungal 01/10/24 Unknown History (Diflucan) loratadine 10 mg tablet (Claritin) 10 mg PO DAILY Allergies 01/10/24 Unknown History tirzepatide 5 mg/0.5 mL 5 mg subcut QWEEK Diabetes 01/10/24 01/08/24 History subcutaneous pen injector (Mounjaro) acetaminophen 500 mg tablet 1,000 mg (2 x 500 mg) PO Q8 PRN 02/01/24 Unknown Rx Pain 1-10 Or Fever #0 tabs buspirone 15 mg tablet 7.5 mg (1/2 x 15 mg) PO BID #0 tabs 02/01/24 Unknown Rx calcium carbonate 500 mg (2.5 x 200 mg calcium (500 02/01/24 Unknown Rx mg)) PO Q4H PRN PRN Indigestion #0 tabs clobetasol 0.05 % topical cream 1 applic topical BID #0 grams 02/01/24 Unknown Rx hydralazine 10 mg tablet 10 mg PO TID #0 tabs 02/01/24 Unknown Rx lidocaine 5 % topical patch 2 patch topical DAILY #0 ea 02/01/24 Unknown Rx magnesium citrate 300 ml PO DAILY PRN Constipation 02/01/24 Unknown Rx #0 mL melatonin 10 mg sublingual tablet 10 mg PO QHS #0 tabs 02/01/24 Unknown Rx menthol 0.44 %-zinc oxide 20.6 % 1 applic topical BID #0 grams 02/01/24 Unknown Rx topical ointment (Calmoseptine) morphine concentrate 10 mg/0.5 mL 10 mg (0.5 mL) sublingual Q2H PRN 02/01/24 Unknown Rx oral syringe (FOR ORAL USE ONLY) PRN Pain Score 6-10 3 days #18 mL sennosides 8.6 mg-docusate sodium 1 tab PO BID #0 tabs 02/01/24 Unknown Rx 50 mg tablet (Stimulant Laxative Plus) tramadol 50 mg tablet 50 mg PO Q6H PRN PRN Pain Score 02/01/24 Unknown Rx 1-5 Or Pre Pt/Ot 3 days #12 tabs Allergy/AdvReac Type Severity Reaction Status D (more content not included)... Normal [facility] Eosinophil percentageOrdered By: Arden Leger on 05-05-2024 Eosinophils/100 WBC (Bld) 2.6 % 0-5 [facility] Erythrocyte distribution wid th (RBC) [Ratio]Ordered By: Arden Leger on 05-05-2024 Erythrocyte distribution width (RBC) [Entitic vol] 54.1 fL High 35.1-43.9 [facility] Erythrocyte distribution wid th ratioOrdered By: Arden Leger on 05-05-2024 Erythrocyte distribution width (RBC) [Ratio] 15.9 % High 11.6-14.6 [facility] Estimated glomerular filtrat ion rate (GFR) AmericanOrdered By: Arden Leger on 05-05-2024 Estimated GFR (MDRD) Amer 130 mL/min >60 [facility] Comment on above: GFR Calc Estimation of creatinine gin aranceOrdered By: Arden Leger on 05-05-2024 Estimated Creatinine Clearance Calc 60.00 ml/min [facility] Glomerular filtration rate ( GFR) estimationOrdered By: Arden Leger on 05-05-2024 Estimated GFR (MDRD) Non-Af Amer 107 mL/min >60 [facility] Comment on above: Non- GFR Calc Glucose measurementOrdered B y: Arden Leger on 05-05-2024 Glucose [Mass/Vol] 134 mg/dL High 74-106 [facility] Comment on above: Fasting Glucose resu lt greater than or equal to 126 mg/dL suggests DIABETES MELLITUS per A.D.A. criteria. Hematocrit Auto (Bld) [Volum e fraction]Ordered By: Arden Leger on 05-05-2024 Hematocrit (Bld) [Volume fraction] 36.9 % Low 37-47 [facility] Hemoglobin measurementOrdere d By: Arden Leger on 05-05-2024 Hemoglobin (Bld) [Mass/Vol] 11.4 g/dL Low 12.0-15.0 [facility] Immature granulocytes/100 WB C Auto (Bld)Ordered By: Arden Leger on 05-05-2024 Immature granulocytes/100 WBC (Bld) 1.500 % High 0.0-0.9 [facility] Comment on above: IG% - Immature Granu locytes (promyelocytes, myelocytes and metamyelocytes) > 1% indicates that a LEFT SHIFT is Present. International normalized rat io (INR) calculationOrdered By: Arden Leger on 05-05-2024 INR Coag (Bld) [Relative time] 1.1 {INR} [facility] Lymphocytes Auto (Unsp spec) [#/Vol]Ordered By: Arden Leger on 05-05-2024 Lymphocytes (Bld) [#/Vol] 1.89 10*3/uL 0.83-4.51 [facility] Lymphocytes/100 WBC Auto (Un sp spec)Ordered By: Arden Leger on 05-05-2024 Lymphocytes/100 WBC (Bld) 23.6 % 19-41 [facility] MCV (mean corpuscular volume ) determinationOrdered By: Arden Leger on 05-05-2024 MCV (RBC) [Entitic vol] 92.5 fL 81-99 [facility] Mean corpuscular hemoglobin (MCH) determinationOrdered By: Arden Leger on 05-05-2024 MCH (RBC) [Entitic mass] 28.6 pg 27.0-32.0 [facility] Mean corpuscular hemoglobin concentration (MCHC) determinationOrdered By: Arden Leger on 05-05-2024 MCHC (RBC) [Mass/Vol] 30.9 g/dL Low 32-36 [facility] Mean platelet volume determi nationOrdered By: Arden Leger on 05-05-2024 Platelet mean volume (Bld) [Entitic vol] 10.7 fL 6.2-12.0 [facility] Monocyte percentageOrdered B y: Arden Leger on 05-05-2024 Monocytes/100 WBC (Bld) 10.4 % High 0-10 [facility] Neutrophil percentageOrdered By: Arden Leger on 05-05-2024 Neutrophils/100 WBC (Bld) 61.3 % 47-70 [facility] Nucleated red blood cell per centageOrdered By: Arden Leger on 05-05-2024 Nucleated RBC/100 WBC (Bld) [Ratio] 0 % 0-5 [facility] Platelet countOrdered By: Hilton Leger on 05-05-2024 Platelets (Bld) [#/Vol] 373 10*3/uL 150-450 [facility] Potassium measurementOrdered By: Arden Leger on 05-05-2024 Potassium [Moles/Vol] 3.6 mmol/L 3.5-5.1 [facility] Comment on above: Slight Hemolysis, Re sult may be falsely increased. Prothrombin timeOrdered By: Arden Leger on 05-05-2024 PT Coag (PPP) [Time] 14.1 s 11.7-14.9 [facility] RBC Auto (Bld) [#/Vol]Ordere d By: Arden Leger on 05-05-2024 RBC (Bld) [#/Vol] 3.99 10*6/uL Low 4.2-5.4 [facility] Serum anion gap measurementO rdered By: Arden Leger on 05-05-2024 Anion gap [Moles/Vol] 7 mmol/L 5-15 [facility] Serum or plasma calcium jessi urement (mass/volume)Ordered By: Arden Leger on 05-05-2024 Calcium [Mass/Vol] 8.6 mg/dL 8.5-10.1 [facility] Serum or plasma creatinine m easurement (mass/volume)Ordered By: Arden Leger on 05-05-2024 Creatinine [Mass/Vol] 0.57 mg/dL 0.55-1.02 [facility] Comment on above: The validity of the calculated GFR & GFRAA in patients over 70 years has not been determined. Clinical correlation is essential. Serum or plasma urea nitroge n measurement (mass/volume)Ordered By: Arden Leger on 05-05-2024 Urea nitrogen [Mass/Vol] 17 mg/dL 7-18 [facility] Sodium levelOrdered By: Arden Leger on 05-05-2024 Sodium [Moles/Vol] 140 mmol/L 136-145 [facility] Spine Cervical without Contr ason 05-05-2024 Spine Cervical without Contras [facility] Imaging Services [address] [place] [address] Spine Cervical without Contras MR#: [id number] Acct: [id number] Name: MIRIAM DAVENPORT Rep #: [id number] : 1940 F 84 From: Raj Moody MD PCP: Dr. Guillaume Dominguez MD Status: PRE ER Study: Spine Cervical without Contras Date of Exam: 07/06/23 Exam# [id number] Ordering Dr: [place] [id number] EXAM: CT CERVICAL SPINE WITHOUT INTRAVENOUS CONTRAST CLINICAL INDICATION: trauma TECHNIQUE: Helically acquired images were obtained of the cervical spine without intravenous contrast. 2D reformatted images were reviewed. This CT exam was performed using one or more of the following dose reduction techniques: automated exposure control, adjustment of the mA and/or kV according to patient size, and/or use of iterative reconstruction technique. RADIATION DOSE: CTDIvol = 21.91 mGy, DLP = 510.20 mGy-cm COMPARISON: No relevant prior studies available. FINDINGS: VERTEBRAE: Unremarkable. No fracture. No traumatic subluxation. No discrete lytic or blastic abnormality. Normal alignment. Normal craniocervical junction and cervicothoracic junction. DISCS/SPINAL CANAL/NEURAL FORAMINA: Degenerative changes of the intervertebral discs. No critical stenosis. SOFT TISSUES: Unremarkable. No prevertebral soft tissue swelling. VASCULATURE: Carotid artery calcifications. LYMPH NODES: Unremarkable. No cervical adenopathy. LUNG APICES: Unremarkable as visualized. Clear. CT/Spine Cervical without Contras IMPRESSION: 1. No acute injuries identified involving the cervical spine. 2. Degenerative changes. Electronically Signed: Raj Moody MD at 0:04 EST , CC: Dr. Arden Leger MD; Dr. Guillaume Dominguez MD Industrial Education Instructor: Signed Normal [facility] Spine Lumbar without Contras ton 05-05-2024 Spine Lumbar without Contrast [facility] Imaging Services [address] [place] [address] [id number] Spine Lumbar without Contrast MR#: [id number] Acct: [id number] Name: MIRIAM DAVENPORT Rep #: [id number] : 1940 F 84 From: Raj Moody MD PCP: Dr. Guillaume Dominguez MD Status: PRE ER Study: Spine Lumbar without Contrast Date of Exam: Exam# [id number] Ordering Dr: [place] [id number] EXAM: CT LUMBAR SPINE WITHOUT INTRAVENOUS CONTRAST CLINICAL INDICATION: Trauma TECHNIQUE: Helically acquired images were obtained of the lumbar spine without intravenous contrast. 2D reformats were reviewed. This CT exam was performed using one or more of the following dose reduction techniques: automated exposure control, adjustment of the mA and/or kV according to patient size, and/or use of iterative reconstruction technique. RADIATION DOSE: CTDIvol = 39.07 mGy, DLP = 1467.45 mGy-cm COMPARISON: CT lumbar spine from 06/13/2017. FINDINGS: VERTEBRAE: No acute fractures. Spondylolisthesis of L5 on S1 measuring 1.2 cm. Chronic L1 Compression deformity. No discrete lytic or blastic abnormality. DISCS/SPINAL CANAL/NEURAL FORAMINA: Degenerative changes of the intervertebral discs. No critical stenosis. VASCULATURE: Visualized abdominal aorta is not dilated. LYMPH NODES: Unremarkable. No retroperitoneal adenopathy. CT/Spine Lumbar without Contrast IMPRESSION: 1. No acute injuries identified involving the lumbar spine. 2. Degenerative changes. 3. Spondylolisthesis of L5 on S1 measuring 1.2 cm. 4. Chronic L1 compression deformity. Electronically Signed: Raj Moody MD at 0:07 EST , CC: Dr. Arden Leger MD; Dr. Guillaume Dominguez MD Industrial Education Instructor: Signed Normal [facility] Spine Thoracic without Contr ason 05-05-2024 Spine Thoracic without Contras [facility] Imaging Services [address] [place] [address] [id number] Spine Thoracic without Contras MR#: [id number] Acct: [id number] Name: MIRIAM DAVENPORT Rep #: [id number] : 1940 F 84 From: Raj Moody MD PCP: Dr. Guillaume Dominguez MD Status: PRE ER Study: Spine Thoracic without Contras Date of Exam: 07/06/23 Exam# [id number] Ordering Dr: [place] [id number] EXAM: CT THORACIC SPINE WITHOUT INTRAVENOUS CONTRAST CLINICAL INDICATION: Trauma TECHNIQUE: Helically acquired images were obtained of the thoracic spine without intravenous contrast. 2D reformats were reviewed. This CT exam was performed using one or more of the following dose reduction techniques: automated exposure control, adjustment of the mA and/or kV according to patient size, and/or use of iterative reconstruction technique. RADIATION DOSE: CTDIvol = 27.37 mGy, DLP = 945.77 mGy-cm COMPARISON: No relevant prior studies available. FINDINGS: VERTEBRAE: Unremarkable. No fracture. No traumatic subluxation. No discrete lytic or blastic abnormality. Normal alignment. DISCS/SPINAL CANAL/NEURAL FORAMINA: Degenerative changes of the intervertebral discs. VASCULATURE: Visualized thoracic aorta is not dilated. LYMPH NODES: Unremarkable. No retroperitoneal adenopathy. LUNGS AND PLEURAL SPACES: Unremarkable as visualized. No mass. No consolidation or edema. No pleural effusion or thickening. No pneumothorax. CT/Spine Thoracic without Contras IMPRESSION: 1. No acute injuries identified involving the thoracic spine. 2. Degenerative changes. Electronically Signed: Raj Moody MD at 0:05 EST , CC: Dr. Arden Leger MD; Dr. Guillaume Dominguez MD Industrial Education Instructor: Signed Normal [facility] Urinalysis, Completeon 05-05 BACTERIA Normal None Seen [facility] Comment on above: Order Comment: 303-2 Result Comment: PT D ISCHARGED Performed By: #### L 503.0106, L501.9985 #### [facility] [address] [place], [address] BILIRUBIN URINE Normal Negative [facility] Comment on above: Order Comment: 303- Result Comment: PT D ISCHARGED Performed By: #### L 503.0106, L501.9985 #### [facility] [address] [place], [address] Clarity (U) Normal Clear [facility] Comment on above: Order Comment: 303-2 Result Comment: PT D ISCHARGED Performed By: #### L 503.0106, L501.9985 #### [facility] [address] [place], [address] Color (U) Normal Yellow [facility] Comment on above: Order Comment: 303-2 Result Comment: PT D ISCHARGED Performed By: #### L 503.0106, L501.9985 #### [facility] [address] [place], [address] EPI,SQUAMOUS Normal 5-10 [facility] Comment on above: Order Comment: 303-2 Result Comment: PT D ISCHARGED Performed By: #### L 503.0106, L501.85 #### [facility] [address] [place], [address] GLUCOSE, UR Normal Normal [facility] Comment on above: Order Comment: 303-2 Result Comment: PT D ISCHARGED Performed By: #### L 503.0106, L501.85 #### [facility] [address] [place], [address] KETONE UR Normal Negative [facility] Comment on above: Order Comment: 303-2 Result Comment: PT D ISCHARGED Performed By: #### L 503.0106, L501.85 #### [facility] [address] [place], [address] LEUK ESTERASE Normal Negative [facility] Comment on above: Order Comment: 303-2 Result Comment: PT D ISCHARGED Performed By: #### L 503.0106, L501.85 #### [facility] [address] [place], [address] Mucus Ql (Urine sed) Normal [facility] Comment on above: Order Comment: 303-2 Result Comment: PT D ISCHARGED Performed By: #### L 503.0106, L501.85 #### [facility] [address] [place], [address] Nitrite Ql (U) Normal Negative [facility] Comment on above: Order Comment: 303-2 Result Comment: PT D ISCHARGED Performed By: #### L 503.0106, L501.85 #### [facility] [address] [place], [address] OCCULT BLOOD-UR Normal Negative [facility] Comment on above: Order Comment: 303-2 Result Comment: PT D ISCHARGED Performed By: #### L 503.0106, L5.85 #### [facility] [address] [place], [address] pH UR Normal 5.0 - 8.0 [facility] Comment on above: Order Comment: Result Comment: PT D ISCHARGED Performed By: #### L 503.0106, L501.9985 #### [facility] [address] [place], [address] PROT DIPSTX Normal Negative [facility] Comment on above: Order Comment: Result Comment: PT D ISCHARGED Performed By: #### L 503.0106, L501.9985 #### [facility] [address] [place], [address] RBC Normal 0-5 [facility] Comment on above: Order Comment: Result Comment: PT D ISCHARGED Performed By: #### L 503.0106, L501.9985 #### [facility] [address] [place], [address] SP.GR. DIPSTX Normal 1.002-1.030 [facility] Comment on above: Order Comment: Result Comment: PT D ISCHARGED Performed By: #### L 503.0106, L501.9985 #### [facility] [address] [place], [address] UR Preservative Normal [facility] Comment on above: Order Comment: Result Comment: PT D ISCHARGED Performed By: #### L 503.0106, L501.9985 #### [facility] [address] [place], [address] UROBILI Normal Normal [facility] Comment on above: Order Comment: Result Comment: PT D ISCHARGED Performed By: #### L 503.0106, L501.9985 #### [facility] [address] [place], [address] WBC Normal 0-5 [facility] [facility] Comment on above: Order Comment: 303-2 Result Comment: PT D ISCHARGED Performed By: #### L 503.0106, L501.9985 #### [facility] [address] [place], [address] VITAMIN B12on 05-05-2024 Cobalamin (Vitamin B12) [Mass/Vol] 473 pg/mL 232 - 1245 pg/mL [facility] VITAMIN D 25 HYDROXYon 05-05 25-hydroxyvitamin D3 [Mass/Vol] 58.3 ng/mL 31.0 - 80.0 ng/mL [facility] Comment on above: Classification of 25 [place] Vitamin D status: Deficiency/Insufficiency: < or = 30 ng/ml. Sufficiency/Optimal Levels: 31-80 ng/mL Toxicity: > 100 ng/mL. Test performed by chemiluminescent immunoassay. 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 MORBID OBESITY 08/18/2007 Obstructive sleep apnea Sleep study 2003 Occlusion and stenosis of carotid artery without mention of cerebral infarction 03/09/2006 mild stenosis shown on u/s at [facility] u/s repeated 02/02/07 with no [...] DATE: March 30, 2024 TIME: 7:05 AM [facility] OPERATIVE NOon 03-30-2024 OPERATIVE NO HNO ID: [id number] Author: MORAIMA MONTELONGO MD Service: Pain Management Author Type: Physician Type: Operative Report Filed: 03/30/2024 08:12 Note Text: PATIENT NAME: Miriam Davenport SERVICE DATE: 03/30/2024 PROCEDURE NOTE PREOPERATIVE DIAGNOSIS(ES) Lumbar radiculopathy Lumbar disc displacement Lumbar canal stenosis without neurogenic claudication Lumbar DDD POSTOPERATIVE DIAGNOSIS(ES): Same PROCEDURE: Left L4-5 lumbar transforaminal epidural steroid injection under fluoroscopy. Street Worker(s): None, I performed the entire procedure. ANESTHESIA: [...] March 30, 2024 TIME: 8:12 AM Normal [facility] ABSCESS AND WOUND CULTURE WI TH GRAM STAINon 08-02-2023 Bacteria identified Cx Nom (Wound) Few Pseudomonas aeruginosa Abnormal [facility] Bacteria identified Cx Nom (Wound) Few Escherichia coli Abnormal [facility] Bacteria identified Cx Nom (Wound) Few skin kj [facility] Bacteria identified Cx Nom ( Wound)on 08-02-2023 Microscopic observation Smear Nom (Unsp spec) Negative Abnormal [facility] Microscopic observation Smear Nom (Unsp spec) Positive Abnormal [facility] Microscopic observation Smear Nom (Unsp spec) No Polymorphonuclear Leukocytes Abnormal [facility] FUNGAL SCREENon 08-01-2023 Fungus identified Cx Nom (Unsp spec) Rare Damian glabrata Abnormal [facility] ABSCESS AND WOUND CULTURE WI TH GRAM STAINon 07-29-2023 Bacteria identified Cx Nom (Wound) Invalid Interpretation Code [facility] DBT Breast - right diagnosti c for implanton 07-21-2023 [facility] Absolute lymphocyte countOrd ered By: Kerwin Kumar on 06-12-2023 Lymphocytes Auto (Unsp spec) [#/Vol] 0.80 10*3/uL 0.83-4.51 [facility] Basophil percentageOrdered B y: Kerwin Kumar on 06-12-2023 Basophil percentage 0-5 SEEN /hpf 0-5 [facility] Basophils/100 WBC (Bld) 0.4 % 0-1 [facility] Chloride [Moles/Vol] 99 mmol/L 98-107 [facility] Eosinophils/100 WBC (Bld) 0.0 % 0-5 [facility] Glucose [Mass/Vol] 268 mg/dL 74-106 [facility] Comment on above: Glucose result great er than or equal to 200 mg/dLsuggests DIABETES MELLITUS per A.D.A. criteria. Neutrophils (Bld) [#/Vol] 13.7 10*3/uL 2.0-7.7 [facility] Neutrophils/100 WBC (Bld) 86.2 % 47-70 [facility] Potassium [Moles/Vol] 3.8 mmol/L 3.5-5.1 [facility] Sodium [Moles/Vol] 132 mmol/L 136-145 [facility] WBC (Bld) [#/Vol] 15.9 10*3/uL 4.4-11.0 [facility] Bilirubin Test strip Ql (U)O rdered By: Kerwin Kumar on 06-12-2023 Bilirubin Ql (U) Negative Negative [facility] Blood erythrocytes count (nu mber/volume)Ordered By: Kerwin Kumar on 06-12-2023 RBC (Bld) [#/Vol] 4.54 10*6/uL 4.2-5.4 [facility] Blood hemoglobin measurement (mass/volume)Ordered By: Kerwin Kumar on 06-12-2023 Hemoglobin (Bld) [Mass/Vol] 12.8 g/dL 12.0-15.0 [facility] Blood lymphocytes/100 leukoc ytesOrdered By: Kerwin Kumar on 06-12-2023 Lymphocytes/100 WBC (Bld) 5.0 % 19-41 [facility] Blood monocytes/100 leukocyt esOrdered By: Kerwin Kumar on 06-12-2023 Monocytes/100 WBC (Bld) 7.8 % 0-10 [facility] Blood platelet mean volumeOr dered By: Kerwin Kumar on 06-12-2023 Platelet mean volume (Bld) [Entitic vol] 10.7 fL 6.2-12.0 [facility] Determination of erythrocyte mean corpuscular volume (MCV)Ordered By: Kerwin Kumar on 06-12-2023 MCV (RBC) [Entitic vol] 90.3 fL 81-99 [facility] Hematocrit Auto (Bld) [Volum e fraction]Ordered By: Kerwin Kumar on 06-12-2023 Hematocrit (Bld) [Volume fraction] 41.0 % 37-47 [facility] Ketones Test strip Ql (U)Ord ered By: Kerwin Kumar on 06-12-2023 Ketones Ql (U) 50 mg/dl Negative [facility] - Chemistry and C hemistry - challengeOrdered By: Kerwin Kumar on 06-12-2023 CO2 [Moles/Vol] 25.0 mmol/L 21.0-32.0 [facility] Urea nitrogen/Creatinine [Mass ratio] 17.5 mg/mg 10-20 [facility] - Hematology and Cell countsOrdered By: Kerwin Kumar on 06-12-2023 Erythrocyte distribution width (RBC) [Entitic vol] 48.2 fL 35.1-43.9 [facility] Erythrocyte distribution width (RBC) [Ratio] 14.6 % 11.6-14.6 [facility] Immature granulocytes/100 WBC (Bld) 0.600 % 0.0-0.9 [facility] Comment on above: IG% - Immature Granu locytes (promyelocytes, myelocytes and metamyelocytes) > 1% indicates that a LEFT SHIFT is Present. MCH (RBC) [Entitic mass] 28.2 pg 27.0-32.0 [facility] Nucleated RBC/100 WBC (Bld) [Ratio] 0 % 0-5 [facility] MCHC Auto (RBC) [Mass/Vol]Or dered By: Kerwin Kumar on 06-12-2023 MCHC (RBC) [Mass/Vol] 31.2 g/dL 32-36 [facility] Mucus LM Ql (Urine sed)Order ed By: Kerwin Kumar on 06-12-2023 Mucus Ql (Urine sed) 0 SEEN /hpf [facility] Nitrite Test strip Ql (U)Ord ered By: Kerwin Kumar on 06-12-2023 Nitrite Ql (U) Positive Negative [facility] No Panel InformationOrdered By: Kerwin Kumar on 06-12-2023 Estimated Creatinine Clearance Calc 65.91 ml/min [facility] Estimated GFR (MDRD) Amer 88 mL/min >60 [facility] Comment on above: GFR Calc Estimated GFR (MDRD) Non-Af Amer 73 mL/min >60 [facility] Comment on above: Non- GFR Calc Platelets bldOrdered By: Ami Kumar on 06-12-2023 Platelets (Bld) [#/Vol] 309 10*3/uL 150-450 [facility] Protein Test strip Ql (U)Ord ered By: Kerwin Kumar on 06-12-2023 Protein Ql (U) 30 mg/dl Negative [facility] Serum or plasma calcium jessi urement (mass/volume)Ordered By: Kerwin Kumar on 06-12-2023 Calcium [Mass/Vol] 9.1 mg/dL 8.5-10.1 [facility] Serum or plasma creatinine m easurement (mass/volume)Ordered By: Kerwin Kumar on 06-12-2023 Creatinine [Mass/Vol] 0.80 mg/dL 0.55-1.02 [facility] Comment on above: The validity of the calculated GFR & GFRAA in patients over 70 years has not been determined. Clinical correlation is essential. Serum or plasma urea nitroge n measurement (mass/volume)Ordered By: Kerwin Kumar on 06-12-2023 Urea nitrogen [Mass/Vol] 14 mg/dL 7-18 [facility] Squamous epithelial cells de tection in urine sediment by light microscopyOrdered By: Kerwin Kumar on 06-12-2023 Epithelial cells.squamous LM Ql (Urine sed) 0-5 SEEN /hpf 5-10 [facility] Thin prep Papanicolaou smear with manual screeningOrdered By: Kerwin Kumar on 06-12-2023 Thin prep Papanicolaou smear with manual screening 8 5-15 [facility] Urine blood detectionOrdered By: Kerwin Kumar on 06-12-2023 RBC Ql (U) 150 /ul Negative [facility] RBC Ql (U) 0-5 SEEN /hpf 0-5 [facility] Urine clarityOrdered By: Ami Kumar on 06-12-2023 Clarity (U) Clear Clear [facility] Urine color determinationOrd ered By: Kerwin Kumar on 06-12-2023 Color (U) Yellow Yellow [facility] Urine glucose detectionOrder ed By: Kerwin Kumar on 06-12-2023 Glucose Ql (U) 50 mg/dl Normal [facility] Urine leukocyte esterase det ection by dipstickOrdered By: Kerwin Kumar on 06-12-2023 Leukocyte esterase Test strip Ql (U) 100 /ul Negative [facility] Urine pHOrdered By: Kerwin espinoza on 06-12-2023 pH (U) 6.0 [pH] 5.0 - 8.0 [facility] Urine sediment bacteria coun t by microscopy (number/high power field)Ordered By: Kerwin Kumar on 06-12-2023 Bacteria LM.HPF (Urine sed) [#/Area] 2 /[HPF] None Seen [facility] Urine specific gravity measu rementOrdered By: Kerwin Kumar on 06-12-2023 Specific gravity (U) [Rel density] 1.015 1.002-1.030 [facility] Urobilinogen Auto test strip Ql (U)Ordered By: Kerwin Kumar on 06-12-2023 Urobilinogen Ql (U) Normal mg/dl Normal [facility] NM CARDIAC PERF STRESS/PHARM on 01-28-2023 [facility] HEMOGLOBIN A1C (POC)on 12-30 HbA1c (Bld) [Mass fraction] 7.0 % Abnormal 4.2 - 5.6 % [facility] XR ABDOMEN 1V SUPINEon 09-23 [facility] ECG COMPLETEon 08-18-2022 Atrial Rate 96 BPM [facility] Calculated P Jarratt 28 degrees [facility] Calculated R Jarratt -16 degrees [facility] Calculated T Jarratt 5 degrees [facility] P-R Interval 180 ms [facility] QRS Duration 78 ms [facility] QT Interval 354 ms [facility] QTC Calculation (Bazett) 447 ms [facility] Ventricular Rate [address] [facility] UA DIP, URINE (POC)on 2022 BILIRUBIN UA (POCT) Negative Negative [facility] CLARITY UA (POCT) Slightly Cloudy Cl [facility] COLOR UA (POCT) Dark yellow [facility] GLUCOSE UA (POCT) Negative Negative mg/dL [facility] HEMOGLOBIN/BLOOD UA (POCT) Large Abnormal Negative [facility] KETONE UA (POCT) Negative Negative mg/dL [facility] LEUKOCYTES UA (POCT) Trace Abnormal Negative [facility] NITRITE UA (POCT) Negative Negative [facility] PH UA (POCT) 5.5 4.5 - 8.0 [facility] Protein Ql (U) 100 mg/dL Abnormal Negative mg/dL [facility] SPECIFIC GRAVITY UA (POCT) >=1.030 1.005 - 1.030 [facility] UROBILINOGEN UA (POCT) 0.2 E.U./dL Kasia l E.U./dL [facility] XR DIGIT GENERAL 3V FRONTAL/ LAT/OBL RIGHTon 05-06-2022 [facility] XR Finger - right AP and Lat eral and obliqueon 05-06-2022 IMPRESSION: Acute, comminuted fracture of the third distal phalanx subungual tuft. Industrial Education Instructor: PSCB Transcribe Date/Time: May 06 2022 4:13P Dictated by : ORIN BEAL MD This examination was interpreted and the report reviewed and electronically signed by: ORIN BEAL MD on May 06 2022 4:15PM [facility] DIVISION OF RADIOLOGY * * *Final Report* [...] soft tissue swelling. DIVISION OF RADIOLOGY Provider, Patsy Watson [facility] - 05/06/2022 * * *Final Report* [...] of the third distal phalanx subungual tuft. Industrial Education Instructor: PSCB Transcribe Date/Time: May 06 2022 4:13P Dictated by : ORIN BEAL MD This examination was interpreted and the report reviewed and electronically signed by: ORIN BEAL MD on May 06 2022 4:15PM EST [facility] Radiology Study observation (narrative) [facility] XR Finger - right AP and Lat eral and obliqueOrdered By: Ccf Provider on 05-06-2022 [facility] CBC panel Auto (Bld)on 04-27 Erythrocyte distribution width (RBC) [Ratio] 14.6 % 11.5 - 15.0 % [facility] Hematocrit (Bld) [Volume fraction] 40.6 % 36.0 - 46.0 % [facility] Hemoglobin (Bld) [Mass/Vol] 12.8 g/dL 11.5 - 15.5 g/dL [facility] MCH (RBC) [Entitic mass] 30.0 pg 26.0 - 34.0 pg [facility] MCHC (RBC) [Mass/Vol] 31.5 g/dL 30.5 - 36.0 g/dL [facility] MCV (RBC) [Entitic vol] 95.1 fL 80.0 - 100.0 fL [facility] Nucleated RBC (Bld) [#/Vol] <0.01 k/uL [facility] Platelet mean volume (Bld) [Entitic vol] 10.7 fL 9.0 - 12.7 fL [facility] Platelets (Bld) [#/Vol] 341 10*3/uL 150 - 400 k/uL [facility] RBC (Bld) [#/Vol] 4.27 10*6/uL 3.90 - 5.2 0 m/uL [facility] WBC (Bld) [#/Vol] 9.20 10*3/uL 3.70 - 11.00 k/uL [facility] XR Abdomen Supine and Uprigh ton 04-08-2022 IMPRESSION: 0.9 x 1.8 cm oblong calculus projects over the expected location of the left renal pelvis. Industrial Education Instructor: KOLE Transcribe Date/Time: Apr 08 2022 4:40P Dictated by : ORIN BEAL MD This examination was interpreted and the report reviewed and electronically signed by: ORIN BEAL MD on Apr 08 2022 4:41PM [facility] DIVISION OF RADIOLOGY * * *Final Report* [...] the pubic symphysis. DIVISION OF RADIOLOGY [facility] * * *Final Report* * [...] expected location of the left renal pelvis. Industrial Education Instructor: PSCB Transcribe Date/Time: Apr 08 2022 4:40P Dictated by : ORIN BEAL MD This examination was interpreted and the report reviewed and electronically signed by: ORIN BEAL MD on Apr 08 2022 4:41PM EST [facility] Radiology Study observation (narrative) [facility] XR Abdomen Supine and Uprigh tOrdered By: Ccf Provider on 04-08-2022 [facility] Bacteria identified Cx Nom ( Wound)on 03-07-2022 Microscopic observation Smear Nom (Unsp spec) Negative Abnormal [facility] Microscopic observation Smear Nom (Unsp spec) Rare Polymorphonuclear leukocytes Abnormal [facility] WOUND CULTURE AND GRAM STAIN on 03-07-2022 Bacteria identified Cx Nom (Wound) Moderate Klebsiella pneumoniae Abnormal [facility] Bacteria identified Cx Nom (Wound) Few Normal urogenital kj Abnormal [facility] EXTRA SWAB CONTAINER PERFORM ABLEon 03-04-2022 [facility] WOUND CULTURE AND GRAM STAIN on 03-04-2022 Bacteria identified Cx Nom (Wound) Invalid Interpretation Code [facility] Absolute lymphocyte counton 02-28-2022 Lymphocytes Auto (Unsp spec) [#/Vol] 1.71 10*3/uL 0.83-4.51 [facility] Work Phone: Basophil percentageon 2021 Basophils/100 WBC (Bld) 0.6 % 0-1 [facility] Work Phone: Bilirubin [Mass/Vol] 0.40 mg/dL 0.20-1.00 [facility] Work Phone: Comment on above: For patients on eltr ombopag therapy, use of Dimension Addison TBIL is not recommended. Chloride [Moles/Vol] 103 mmol/L 98-107 [facility] Work Phone: Eosinophils/100 WBC (Bld) 0.9 % 0-5 [facility] Work Phone: Glucose [Mass/Vol] 151 mg/dL 74-106 [facility] Work Phone: Comment on above: Fasting Glucose resu lt greater than or equal to 126 mg/dL suggests DIABETES MELLITUS per A.D.A. criteria. Neutrophils (Bld) [#/Vol] 9.1 10*3/uL 2.0-7.7 [facility] Work Phone: Neutrophils/100 WBC (Bld) 74.8 % 47-70 [facility] Work Phone: Potassium [Moles/Vol] 3.9 mmol/L 3.5-5.1 [facility] Work Phone: Protein [Mass/Vol] 7.7 g/dL 6.4-8.2 [facility] Work Phone: Sodium [Moles/Vol] 139 mmol/L 136-145 [facility] Work Phone: WBC (Bld) [#/Vol] 12.2 10*3/uL 4.4-11.0 [facility] Work Phone: Blood erythrocytes count (nu mber/volume)on 02-28-2022 RBC (Bld) [#/Vol] 4.82 10*6/uL 4.2-5.4 [facility] Work Phone: Blood hemoglobin measurement (mass/volume)on 02-28-2022 Hemoglobin (Bld) [Mass/Vol] 14.7 g/dL 12.0-15.0 [facility] Work Phone: Blood lymphocytes/100 leukoc yteson 02-28-2022 Lymphocytes/100 WBC (Bld) 14.1 % 19-41 [facility] Work Phone: Blood monocytes/100 leukocyt eson 02-28-2022 Monocytes/100 WBC (Bld) 9.1 % 0-10 [facility] Work Phone: [phone] Blood platelet mean volumeon 02-28-2022 Platelet mean volume (Bld) [Entitic vol] 11.0 fL 6.2-12.0 [facility] Work Phone: [phone] Determination of erythrocyte mean corpuscular volume (MCV)on 02-28-2022 MCV (RBC) [Entitic vol] 95.6 fL 81-99 [facility] Work Phone: [phone] Direct bilirubinon Bilirubin.direct [Mass/Vol] 0.09 mg/dL 0.00-0.30 [facility] Work Phone: [phone] Glucose Glucometer (BldC) [M ass/Vol]on 02-28-2022 Glucose [Mass/Vol] 146 mg/dL 74-106 [facility] Work Phone: [phone] Comment on above: MANAGEMENT OF PATIEN T CARE PER NURSING PROTOCOL Hematocrit Auto (Bld) [Volum e fraction]on 02-28-2022 Hematocrit (Bld) [Volume fraction] 46.1 % 37-47 [facility] Work Phone: [phone] Laboratory - Chemistry and C hemistry - challengeon 02-28-2022 ALP [Catalytic activity/Vol] 115 U/L 45-117 [facility] Work Phone: [phone] ALT [Catalytic activity/Vol] 15 U/L 13-56 [facility] Work Phone: [phone] CO2 [Moles/Vol] 29.0 mmol/L 21.0-32.0 [facility] Work Phone: [phone] Globulin (S) [Mass/Vol] 4.8 g/dL 2.2-4.2 [facility] Work Phone: [phone] Lipase [Catalytic activity/Vol] 74 U/L 73-393 [facility] Work Phone: [phone] Urea nitrogen/Creatinine [Mass ratio] 21.1 mg/mg 10-20 [facility] Work Phone: [phone] Laboratory - Hematology and Cell countson 02-28-2022 Erythrocyte distribution width (RBC) [Entitic vol] 49.0 fL 35.1-43.9 [facility] Work Phone: [phone] Erythrocyte distribution width (RBC) [Ratio] 13.9 % 11.6-14.6 [facility] Work Phone: [phone] Immature granulocytes/100 WBC (Bld) 0.500 % 0.0-0.9 [facility] Work Phone: [phone] Comment on above: IG% - Immature Granu locytes (promyelocytes, myelocytes and metamyelocytes) > 1% indicates that a LEFT SHIFT is Present. MCH (RBC) [Entitic mass] 30.5 pg 27.0-32.0 [facility] Work Phone: [phone] Nucleated RBC/100 WBC (Bld) [Ratio] 0 % 0-5 [facility] Work Phone: [phone] MCHC Auto (RBC) [Mass/Vol]on 02-28-2022 MCHC (RBC) [Mass/Vol] 31.9 g/dL 32-36 [facility] Work Phone: [phone] Panel Informationon 02-28 Estimated Creatinine Clearance Calc 42.00 ml/min [facility] Work Phone: [phone] Estimated GFR (MDRD) Amer 94 mL/min >60 [facility] Work Phone: [phone] Comment on above: GFR Calc Estimated GFR (MDRD) Non-Af Amer 78 mL/min >60 [facility] Work Phone: [phone] Comment on above: Non- GFR Calc Platelets bldon 02-28-2022 Platelets (Bld) [#/Vol] 311 10*3/uL 150-450 [facility] Work Phone: [phone] Serum or plasma albumin jessi urement (mass/volume)on 02-28-2022 Albumin [Mass/Vol] 2.9 g/dL 3.2-5.0 [facility] Work Phone: Serum or plasma calcium jessi urement (mass/volume)on 02-28-2022 Calcium [Mass/Vol] 9.2 mg/dL 8.5-10.1 [facility] Work Phone: Serum or plasma creatinine m easurement (mass/volume)on 02-28-2022 Creatinine [Mass/Vol] 0.76 mg/dL 0.55-1.02 [facility] Work Phone: [phone] Comment on above: The validity of the calculated GFR & GFRAA in patients over 70 years has not been determined. Clinical correlation is essential. Serum or plasma urea nitroge n measurement (mass/volume)on 02-28-2022 Urea nitrogen [Mass/Vol] 16 mg/dL 7-18 [facility] Work Phone: Thin prep Papanicolaou smear with manual screeningon 02-28-2022 Thin prep Papanicolaou smear with manual screening 9 U/L 15-37 [facility] Work Phone: [phone] Thin prep Papanicolaou smear with manual screening 7 5-15 [facility] Work Phone: Absolute lymphocyte counton 02-16-2022 Lymphocytes Auto (Unsp spec) [#/Vol] 1.81 10*3/uL 0.83-4.51 [facility] Work Phone: Basophil percentageon 2021 Basophils/100 WBC (Bld) 0.7 % 0-1 [facility] Work Phone: Chloride [Moles/Vol] 109 mmol/L 98-107 [facility] Work Phone: Eosinophils/100 WBC (Bld) 1.4 % 0-5 [facility] Work Phone: Glucose [Mass/Vol] 85 mg/dL 74-106 [facility] Work Phone: Neutrophils (Bld) [#/Vol] 6.2 10*3/uL 2.0-7.7 [facility] Work Phone: Neutrophils/100 WBC (Bld) 68.0 % 47-70 [facility] Work Phone: Potassium [Moles/Vol] 4.0 mmol/L 3.5-5.1 [facility]: Sodium [Moles/Vol] 141 mmol/L 136-145 [facility] Work Phone: [phone] WBC (Bld) [#/Vol] 9.1 10*3/uL 4.4-11.0 [facility] Work Phone: Blood erythrocytes count (nu mber/volume)on 02-16-2022 RBC (Bld) [#/Vol] 4.18 10*6/uL 4.2-5.4 [facility] Work Phone: Blood hemoglobin measurement (mass/volume)on 02-16-2022 Hemoglobin (Bld) [Mass/Vol] 12.3 g/dL 12.0-15.0 [facility] Work Phone: Blood lymphocytes/100 leukoc yteson 02-16-2022 Lymphocytes/100 WBC (Bld) 19.8 % 19-41 [facility] Work Phone: Blood monocytes/100 leukocyt eson 02-16-2022 Monocytes/100 WBC (Bld) 9.4 % 0-10 [facility] Work Phone: Blood platelet mean volumeon 02-16-2022 Platelet mean volume (Bld) [Entitic vol] 11.0 fL 6.2-12.0 [facility] Work Phone: Determination of erythrocyte mean corpuscular volume (MCV)on 02-16-2022 MCV (RBC) [Entitic vol] 94.5 fL 81-99 [facility] Work Phone: Glucose Glucometer (BldC) [M ass/Vol]on 02-16-2022 Glucose [Mass/Vol] 64 mg/dL 74-106 [facility] Work Phone: Comment on above: MANAGEMENT OF PATIEN T CARE PER NURSING PROTOCOL Hematocrit Auto (Bld) [Volum e fraction]on 02-16-2022 Hematocrit (Bld) [Volume fraction] 39.5 % 37-47 [facility] Work Phone: [phone] Laboratory - Chemistry and C hemistry - challengeon 02-16-2022 CO2 [Moles/Vol] 26.0 mmol/L 21.0-32.0 [facility] Work Phone: [phone] Urea nitrogen/Creatinine [Mass ratio] 21.1 mg/mg 10-20 [facility] Work Phone: [phone] Laboratory - Hematology and Cell countson 02-16-2022 Erythrocyte distribution width (RBC) [Entitic vol] 48.5 fL 35.1-43.9 [facility] Work Phone: [phone] Erythrocyte distribution width (RBC) [Ratio] 14.0 % 11.6-14.6 [facility] Work Phone: [phone] Immature granulocytes/100 WBC (Bld) 0.700 % 0.0-0.9 [facility] Work Phone: [phone] Comment on above: IG% - Immature Granu locytes (promyelocytes, myelocytes and metamyelocytes) > 1% indicates that a LEFT SHIFT is Present. MCH (RBC) [Entitic mass] 29.4 pg 27.0-32.0 [facility] Work Phone: [phone] Nucleated RBC/100 WBC (Bld) [Ratio] 0 % 0-5 [facility] Work Phone: [phone] MCHC Auto (RBC) [Mass/Vol]on 02-16-2022 MCHC (RBC) [Mass/Vol] 31.1 g/dL 32-36 [facility] Work Phone: No Panel Informationon 02-16 Estimated Creatinine Clearance Calc 42.00 ml/min [facility] Work Phone: [phone] Estimated GFR (MDRD) Amer 110 mL/min >60 [facility] Work Phone: [phone] Comment on above: GFR Calc Estimated GFR (MDRD) Non-Af Amer 91 mL/min >60 [facility] Work Phone: [phone] Comment on above: Non- GFR Calc Troponin I High Sensitivity 8 pg/mL 3.0-54.0 [facility] Work Phone: Comment on above: Please Note: New Ashley t Units and Gender Specific Reference Ranges. For more information see Policy Stat Procedure Addison High Sensitivity Troponin (TNIH) and attachments. Platelets bldon 02-16-2022 Platelets (Bld) [#/Vol] 317 10*3/uL 150-450 [facility] Work Phone: [phone] Serum or plasma calcium jessi urement (mass/volume)on 02-16-2022 Calcium [Mass/Vol] 8.9 mg/dL 8.5-10.1 [facility] Work Phone: Serum or plasma creatinine m easurement (mass/volume)on 02-16-2022 Creatinine [Mass/Vol] 0.66 mg/dL 0.55-1.02 [facility] Work Phone: Comment on above: The validity of the calculated GFR & GFRAA in patients over 70 years has not been determined. Clinical correlation is essential. Serum or plasma urea nitroge n measurement (mass/volume)on 02-16-2022 Urea nitrogen [Mass/Vol] 14 mg/dL 7-18 [facility] Work Phone: Thin prep Papanicolaou smear with manual screeningon 02-16-2022 Thin prep Papanicolaou smear with manual screening 6 5-15 [facility] Work Phone: GLUCOSE, BLOOD (POC)on 12-17 Glucose [Mass/Vol] 248 mg/dL Abnormal 74 - 99 mg/dL [facility] UA DIP, URINE (POC)on 2021 BILIRUBIN UA (POCT) Negative Negative [facility] CLARITY UA (POCT) Cloudy [facility] COLOR UA (POCT) Dark yellow [facility] GLUCOSE UA (POCT) >=1000 Abnormal Negative mg/dL [facility] HEMOGLOBIN/BLOOD UA (POCT) Large Abnormal Negative [facility] KETONE UA (POCT) Trace Negative mg/dL [facility] LEUKOCYTES UA (POCT) Small Abnormal Negative [facility] NITRITE UA (POCT) Positive Abnormal Negative [facility] PH UA (POCT) 5.0 4.5 - 8.0 [facility] Protein Ql (U) 100 mg/dL Abnormal Negative mg/dL [facility] SPECIFIC GRAVITY UA (POCT) 1.025 1.005 - 1.030 [facility] UROBILINOGEN UA (POCT) 0.2 E.U./dL Kasia l E.U./dL [facility] TSH BLDon 10-04-2021 TSH Qn 1.840 m[IU]/L 0.270 - 4.200 mIU/L [facility] XR Chest PA and Lateralon IMPRESSION: No acute radiographic abnormality. Industrial Education Instructor: PSCB Transcribe Date/Time: Oct 04 2021 7:28A Dictated by : MALIKA JACOBSON MD This examination was interpreted and the report reviewed and electronically signed by: MALIKA JACOBSON MD on Oct 04 2021 7:28AM EST [id number] _DIVISION OF RADIOLOGY * * *Final Report* [...] thoracic spine. [id number][id number] _DIVISION OF RADIOLOGY Provider, [facility] - 10/04/2021 * * *Final Report* [...] spine. IMPRESSION IMPRESSION: No acute radiographic abnormality. Industrial Education Instructor: PSCB Transcribe Date/Time: Oct 04 2021 7:28A Dictated by : MALIKA JACOBSON MD This examination was interpreted and the report reviewed and electronically signed by: MALIKA JACOBSON MD on Oct 04 2021 7:28AM EST [facility] XR Chest PA and LateralOrder ed By: Ccf Provider on 10-04-2021 [facility] CBC W Auto Differential pane l (Bld)on 10-03-2021 Abs Immature Gran 0.05 k/uL <0.10 k/uL [facility] Basophils (Bld) [#/Vol] 0.07 10*3/uL <0.11 k/uL [facility] Basophils/100 WBC (Bld) 0.7 % [facility] Differential cell count method Nom (Bld) Auto [facility] Eosinophils (Bld) [#/Vol] 0.12 10*3/uL <0.46 k/uL [facility] Eosinophils/100 WBC (Bld) 1.2 % [facility] Erythrocyte distribution width (RBC) [Ratio] 14.2 % 11.5 - 15.0 % [facility] Hematocrit (Bld) [Volume fraction] 43.9 % 36.0 - 46.0 % [facility] Hemoglobin (Bld) [Mass/Vol] 14.2 g/dL 11.5 - 15.5 g/dL [facility] Immature Gran % 0.5 % [facility] Lymphocytes (Bld) [#/Vol] 2.06 10*3/uL 1.00 - 4.00 k/uL [facility] Lymphocytes/100 WBC (Bld) 20.9 % [facility] MCH (RBC) [Entitic mass] 30.5 pg 26.0 - 34.0 pg [facility] MCHC (RBC) [Mass/Vol] 32.3 g/dL 30.5 - 36.0 g/dL [facility] MCV (RBC) [Entitic vol] 94.2 fL 80.0 - 100.0 fL [facility] Monocytes (Bld) [#/Vol] 0.81 10*3/uL <0.87 k/uL [facility] Monocytes/100 WBC (Bld) 8.2 % [facility] Neutrophils ([facility]ld) [#/Vol] 6.76 10*3/uL 1.45 - 7.50 k/uL [facility] Neutrophils/100 WBC (Bld) 68.5 % [facility] Nucleated RBC (Bld) [#/Vol] 10*3/uL <0.01 k/uL [facility] Nucleated RBC/100 WBC (Bld) [Ratio] 0.0 /100 WBC [facility] Platelet mean volume (Bld) [Entitic vol] 11.1 fL 9.0 - 12.7 fL [facility] Platelets (Bld) [#/Vol] 293 10*3/uL 150 - 400 k/uL [facility] RBC (Bld) [#/Vol] 4.66 10*6/uL 3.90 - 5.2 0 m/uL [facility] WBC (Bld) [#/Vol] 9.87 10*3/uL 3.70 - 11.00 k/uL [facility] Comprehensive metabolic 2000 panelon 10-03-2021 Albumin [Mass/Vol] 3.9 g/dL 3.9 - 4.9 g/dL [facility] ALP [Catalytic activity/Vol] 100 U/L 34 - 123 U/L [facility] ALT [Catalytic activity/Vol] 9 U/L 7 - 38 U/L [facility] Anion gap [Moles/Vol] 10 mmol/L 9 - 18 mmol/L [facility] AST [Catalytic activity/Vol] 14 U/L 13 - 35 U/L [facility] Bilirubin [Mass/Vol] 0.2 mg/dL 0.2 - 1 .3 mg/dL [facility] Calcium [Mass/Vol] 9.1 mg/dL 8.5 - 10. 2 mg/dL [facility] Chloride [Moles/Vol] 104 mmol/L 97 - 10 5 mmol/L [facility] CO2 [Moles/Vol] 23 mmol/L 22 - 30 mmol/L [facility] Creatinine [Mass/Vol] 0.70 mg/dL 0.58 - 0.96 mg/dL [facility] Estimated Glomerular Filtration Rate 88 mL/min/1.73m >=60 mL/min/1.73 m [facility] Glucose [Mass/Vol] 128 mg/dL High 74 - 99 mg/dL [facility] Potassium [Moles/Vol] 4.3 mmol/L 3.7 - 5.1 mmol/L [facility] Protein [Mass/Vol] 7.2 g/dL 6.3 - 8.0 g/dL [facility] Sodium [Moles/Vol] 137 mmol/L 136 - 144 mmol/L [facility] Urea nitrogen [Mass/Vol] 21 mg/dL 7 - 21 mg/dL [facility] XR CHEST 2V FRONTAL/LATon [facility] XR Chest PA and Lateralon Radiology Study observation (narrative) Daniela oliver [facility] ANES [place] 06-12-2019 ANES POST HNO ID: [id number] Author: Mayra Moore Service: Anesthesiology Author Type: [...] 12, 2019 TIME: 8:36 AM PAGER/CONTACT #: [facility] ANENaveed PREOPon 06-12-2019 ANES PREOP HNO ID: [id number] Author: Mayra Moore Service: Anesthesiology Author Type: 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 - MORBID OBESITY 08/18/2007 - Obstructive sleep apnea Sleep study 2002 - Occlusion and stenosis of carotid artery without mention of cerebral infarction 03/09/06 mild stenosis shown on u/s at [facility] u/s repeated 02/02/07 with no change - Pure hypercholesterolemia - Type II or unspecified type diabetes mellitus with renal manifestations, uncontrolled(250.42) - Unspecified glaucoma(365.9) - Unspecified pruritic disorder PAST SURGICAL HISTORY Procedure Laterality Date - EGD W/O [facility] SPECIMEN W/BX 05-14-15 - GASTRIC BYPASS 09/14/2007 - I AND [...] 12, 2019 TIME: 7:07 AM PAGER/CONTACT #: [facility] NURSING PROGon 06-12-2019 NURSING PROG HNO ID: [id number] Author: Natalya (Rn) ISMAEL Cox Service: Nursing Author Type: Registered Nurse Type: Nursing Progress Note Filed: 06/13/2019 2:57 PM Note Text: Nursing Progress Note Topic of Note: Post op phone call Miriam Davenport [phone] Pt has concern about stitches poking her and location of the areas where biopsies were taken. Encouraged pt to reach out to Dr. Prado for clarification. Phone number provided. This note was completed by: Natalya Cox RN [facility] SURGICAL PATHOLOGYon 020 SURGICAL PATHOLOGY ADDENDUM PRESENT Specimen originated from [facility] Specimen #: [id number] Submitting Physician: ETSHER PRADO FINAL DIAGNOSIS 1. Right labia majus, [...] and Gram stains were performed at the [facility] and compared to appropriate controls. The PAS/F stain highlights fungal hyphae within the stratum corneum. The Gram stain fails to highlight bacterial colonies. Overall, the above histologic findings and special stain results are those of a fungal infections process. Clinical correlation is recommended. WFB/SAMUEL/salinas 06/27/2019 Addendum Pathologist: Radha Walters M.D. Electronic [...] in one cassette. Gross examination performed at [facility], [address] [place] [address] 06/12/2019 9:33:07 PM Date of Report: 06/13/2019 Date of Procedure: 06/12/2019 Date of Receipt: 06/12/2019 Submitted by: ESTHER PRADO Additional Physician(s): GUILLAUME DOMINGUEZ Location: [facility] Diagnostic interpretation performed at [facility], [address] [place] [address]. CLIA Number: [id number] [facility] NURSING PROGon 06-01-2019 NURSING PROG HNO ID: [id number] Author: Karin (Rn) Gopal RN Service: General Surgery Author Type: Registered Nurse Type: Nursing Progress Note Filed: 06/01/2019 8:16 PM Note Text: PACC Nurse Progress Note History AND Physical: PACC Visit Date: 05-19-19 Original HANDP Date: N/A ED visit Date: N/A Outside HANDP Scanned Date: N/A Labs Within Last 6 Months: CBC: Date 03-31-19 BMP/CMP: Date 03-31-19 Results scanned in [facility] 05-01-19 Imaging Within Last 12 Months: N/A Cardiac Testing: EKG in last 12 Months: Yes: Date: 03-17-19, Comment: Confirmed in [facility] Last Menstrual Period: LMP Date: Not [...] lumbar region Assessment: following pain management at [facility], receiving facet injections ? 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 Cartagena-Bariatric/[facility] [place] 2) Dr. Luong - Lead Mechanic (non [facility]) 3) Dr. Reina - Vendor Relationship Manager (non [facility]) 4) Dr Prado - Gynecology/[facility] Comfort Patterson APRN.CUSTOMER INSIGHT ANALYST 06/06/2019 8:07 AM Signed Can you clarify why she is seeing docking pilot and piece dyeing machine tender - diagnoses for referrals? Lola Wong LPN 06/06/2019 8:[address] Dominguez, did patient indicate to you why she is seeing these specialists? Guillaume Dominguez MD 06/07/2019 7:26 PM Signed Filed order Do not use Non[facility] consult orders (there is a place with consult orders to check if they are a [facility] provider/have Epic privileges. Progress Notes ([facility] MAIN): Ning Trung VILLASENOR 06/05/2019 3:51 PM Signed DATE OF SERVICE: [...] patient have an advanced directive: No Does [facility] have a copy of the patient's [...] prescribed by anesthesia, internal medicine, surgeon, or CHEMICAL RADIATION TECHNICIAN Stop NSAIDs, Aspirin (ASA), vitamins, herbal supplements, [...] jewelry, body piercing, makeup, contacts, lotions, nail romansh on fingers, or anything in hair on [...] if after hours patient instructed to call cinder crane operator and ask for construction trades contractor nurse obgyn onc resident. [place] program offered to patient: [...] None Educator: Ning Nino LPN [facility] MRI LUMBAR SPINE WO IVCONon 10-03-2018 MRI LUMBAR SPINE WO IVCON * * *Final Report* * * DATE OF EXAM: Oct 03 2018 9:18AM [facility] 0303 - MRI LUMBAR SPINE WO [...] on Oct 03 2018 10:38AM EST [id number] [facility] Vital Signs Date Time Vital Sign Value Performing Clinician Facility 08-03-2024 13:35-0500 Body height 165.1 cm Tika Jones MD Work Phone: [facility] 08-03-2024 13:35-0500 Diastolic blood pressure 56 mm[Hg] Tika tamayo MD Work Phone: [facility] 08-03-2024 13:35-0500 Heart rate 71 /min Tika Jones MD Work Phone: [facility] 08-03-2024 13:35-0500 Respiratory rate 18 /min Tika Jones MD Work Phone: [facility] 08-03-2024 13:35-0500 SaO2% (BldA) [Mass fraction] 97 % Tika Jones MD Work Phone: [facility] 08-03-2024 13:35-0500 Systolic blood pressure 103 mm[Hg] Tika Jones MD Work Phone: [facility] 05-11-2024 16:43-0500 SaO2% (BldA) [Mass fraction] 97 % GUILLAUME DOMINGUEZ [facility] Comment on above: Order Comment: Specimen Type: ARTERIAL B LOOD SPECIMENOrdering Facility: [facility] Address: [address] [place] [address] Performed By: #### A LLBG ####[facility] LABORATORYCLIA [id number] [place] [address] [place] 05-06-2024 01:12-0500 Body temperature 98.2 [degF] Dr. Guillaume Dominguez MD Work Phone: [facility] 05-06-2024 01:12-0500 Diastolic blood pressure 57 mm[Hg] Dr. Guillaume hinds MD Work Phone: 5(272)979-816184 [place] [address] 05-06-2024 01:12-0500 Heart rate 76 /min Dr. Guillaume Dominguez MD Work Phone: 3(077)464-750892 [place] [address] 05-06-2024 01:12-0500 Respiratory rate 17 /min Dr. Guillaume Dominguez MD Work Phone: 0(238)617-465392 [place] [address] 05-06-2024 01:12-0500 SaO2% (BldA) [Mass fraction] 95 % Dr. Guillaume Dominguez MD Work Phone: 1(725)160-787692 [place] [address] 05-06-2024 01:12-0500 Systolic blood pressure 102 mm[Hg] Dr. Guillaume abarca MD Work Phone: 3(398)596-069992 [place] [address] 05-06-2024 00:24-0500 Inhaled oxygen flow rate 2 L/min Dr. Guillaume hinds MD Work Phone: 7(036)872-381692 [place] [address] 05-05-2024 22:59-0500 Body height 167.[address] Guillaume Dominguez MD Work Phone: 4(545)517-406692 [place] [address] 05-05-2024 22:59-0500 Body mass index (BMI) [Ratio] 30.7 kg/m2 Dr. Guillaume Dominguez MD Work Phone: 1(251)473-662392 [place] [address] 05-05-2024 22:59-0500 Body weight 86.[address] Guillaume Dominguez MD Work Phone: 4(255)[phone] [place] [address] 04-28-2024 16:40-0500 Body mass index (BMI) [Ratio] 30.67 kg/m2 Guillaume Dominguez MD Work Phone: [facility] 04-28-2024 16:40-0500 Body temperature 98.01 [degF] Guillaume Dominguez MD Work Phone: [facility] 04-28-2024 16:40-0500 Body weight 83.6 kg Guillaume Dominguez MD Work Phone: [facility] 04-28-2024 16:40-0500 Diastolic blood pressure 68 mm[Hg] Guillaume Oliver Work Phone: [facility] 04-28-2024 16:40-0500 Heart rate 93 /min Guillaume Dominguez MD Work Phone: [facility] 04-28-2024 16:40-0500 Respiratory rate 16 /min Guillaume Dominguez MD Work Phone: [facility] 04-28-2024 16:40-0500 SaO2% (BldA) [Mass fraction] 98 % Guillaume Dominguez MD Work Phone: [facility] 04-28-2024 16:40-0500 Systolic blood pressure 117 mm[Hg] Guillaume Dominguez MD Work Phone: [facility] 01-10-2024 11:38-0400 Body mass index (BMI) [Ratio] 32.94 kg/m2 Comfort Patterson SOLE TIER.CUSTOMER INSIGHT ANALYST Work Phone: [facility] 01-10-2024 11:38-0400 Body weight 89.8 kg Comfort Patterson SOLE TIER.CUSTOMER INSIGHT ANALYST Work Phone: [facility] 01-10-2024 11:38-0400 Diastolic blood pressure 76 mm[Hg] Comfort Patterson SOLE TIER.CUSTOMER INSIGHT ANALYST Work Phone: [facility] 01-10-2024 11:38-0400 Heart rate 90 /min Comfort Patterson SOLE TIER.CUSTOMER INSIGHT ANALYST Work Phone: [facility] 01-10-2024 11:38-0400 Respiratory rate 16 /min Comfort Patterson SOLE TIER.CUSTOMER INSIGHT ANALYST Work Phone: [facility] 01-10-2024 11:38-0400 Systolic blood pressure 113 mm[Hg] Comfort Patterson SOLE TIER.CUSTOMER INSIGHT ANALYST Work Phone: [facility] 12-24-2023 11:24-0400 Body mass index (BMI) [Ratio] 33.28 kg/m2 Josefa Caputo SOLE TIER.WOOD BOAT BUILDER SUPERVISOR Work Phone: [facility] 12-24-2023 11:24-0400 Body weight 90.72 kg Josefa Flynn SOLE TIER.WOOD BOAT BUILDER SUPERVISOR Work Phone: [facility] 12-24-2023 11:24-0400 Diastolic blood pressure 70 mm[Hg] Josefa Flynn SOLE TIER.WOOD BOAT BUILDER SUPERVISOR Work Phone: [facility] 12-24-2023 11:24-0400 Heart rate 80 /min Josefa Flynn SOLE TIER.WOOD BOAT BUILDER SUPERVISOR Work Phone: [facility] 12-24-2023 11:24-0400 Respiratory rate 20 /min Josefa Flynn SOLE TIER.WOOD BOAT BUILDER SUPERVISOR Work Phone: [facility] 12-24-2023 11:24-0400 Systolic blood pressure 124 mm[Hg] Josefa Flynn SOLE TIER.WOOD BOAT BUILDER SUPERVISOR Work Phone: [facility] 12-10-2023 16:16-0400 Body mass index (BMI) [Ratio] 33.25 kg/m2 Guillaume Dominguez MD Work Phone: [facility] 12-10-2023 16:16-0400 Body temperature 98.1 [degF] Guillaume Dominguez MD Work Phone: [facility] 12-10-2023 16:16-0400 Body weight 90.63 kg Guillaume Dominguez MD Work Phone: [facility] 12-10-2023 16:16-0400 Diastolic blood pressure 68 mm[Hg] Guillaume Oliver Work Phone: [facility] 12-10-2023 16:16-0400 Heart rate 94 /min Guillaume Dominguez MD Work Phone: [facility] 12-10-2023 16:16-0400 Respiratory rate 18 /min Guillaume Dominguez MD Work Phone: [facility] 12-10-2023 16:16-0400 SaO2% (BldA) [Mass fraction] 97 % Guillaume Dominguez MD Work Phone: [facility] 12-10-2023 16:16-0400 Systolic blood pressure 118 mm[Hg] Guillaume Dominguez MD Work Phone: [facility] 10-29-2023 15:53-0400 Diastolic blood pressure 80 mm[Hg] Curtis Oliver Work Phone: [facility] 10-29-2023 15:53-0400 Heart rate 89 /min Curtis Nassar MD Work Phone: [facility] 10-29-2023 15:53-0400 Systolic blood pressure 142 mm[Hg] Curtis Nassar MD Work Phone: [facility] 10-11-2023 11:23-0400 Body height 165.1 cm Comfort Patterson SOLE TIER.CUSTOMER INSIGHT ANALYST Work Phone: [facility] 10-11-2023 11:23-0400 Body mass index (BMI) [Ratio] 33.78 kg/m2 Comfort Patterson SOLE TIER.CUSTOMER INSIGHT ANALYST Work Phone: [facility] 10-11-2023 11:23-0400 Body weight 92.08 kg Comfort Patterson SOLE TIER.CUSTOMER INSIGHT ANALYST Work Phone: [facility] 10-11-2023 11:23-0400 Diastolic blood pressure 81 mm[Hg] Comfort Patterson SOLE TIER.CUSTOMER INSIGHT ANALYST Work Phone: [facility] 10-11-2023 11:23-0400 Heart rate 88 /min Cofmort Patterson SOLE TIER.CUSTOMER INSIGHT ANALYST Work Phone: [facility] 10-11-2023 11:23-0400 Respiratory rate 16 /min Comfort Patterson SOLE TIER.CUSTOMER INSIGHT ANALYST Work Phone: [facility] 10-11-2023 11:23-0400 Systolic blood pressure 119 mm[Hg] Comfort Patterson SOLE TIER.CUSTOMER INSIGHT ANALYST Work Phone: [facility] 08-13-2023 11:10-0400 Body weight 94.35 kg Josefa Flynn SOLE TIER.WOOD BOAT BUILDER SUPERVISOR Work Phone: [facility] 08-13-2023 11:10-0400 Diastolic blood pressure 70 mm[Hg] Josefa Flynn SOLE TIER.WOOD BOAT BUILDER SUPERVISOR Work Phone: [facility] 08-13-2023 11:10-0400 Heart rate 98 /min Josefa Flynn SOLE TIER.WOOD BOAT BUILDER SUPERVISOR Work Phone: [facility] 08-13-2023 11:10-0400 Respiratory rate 16 /min Josefa Flynn SOLE TIER.WOOD BOAT BUILDER SUPERVISOR Work Phone: [facility] 08-13-2023 11:10-0400 SaO2% (BldA) [Mass fraction] 95 % Josefa Flynn SOLE TIER.WOOD BOAT BUILDER SUPERVISOR Work Phone: [facility] 08-13-2023 11:10-0400 Systolic blood pressure 116 mm[Hg] Josefa Flynn SOLE TIER.WOOD BOAT BUILDER SUPERVISOR Work Phone: [facility] 08-11-2023 08:59-0400 Body weight 94.26 kg Martha Trenton DO Work Phone: [facility] 08-11-2023 08:59-0400 Diastolic blood pressure 79 mm[Hg] Martha Trenton DO Work Phone: [facility] 08-11-2023 08:59-0400 Heart rate 89 /min Martha Trenton DO Work Phone: [facility] 08-11-2023 08:59-0400 Systolic blood pressure 127 mm[Hg] Martha Trenton D O Work Phone: [facility] 07-29-2023 09:57-0500 Body height 165.1 cm Radha Walters MD Work Phone: [facility] 07-29-2023 09:57-0500 Body weight 94.21 kg Radha Walters MD Work Phone: [facility] 07-08-2023 15:43-0500 Body weight 94.8 kg Rajiv Walker MD Work Phone: [facility] 07-08-2023 15:43-0500 Diastolic blood pressure 82 mm[Hg] Rajiv Walker MD Work Phone: [facility] 07-08-2023 15:43-0500 Heart rate 101 /min Rajiv Walker MD Work Phone: [facility] 07-08-2023 15:43-0500 Systolic blood pressure 145 mm[Hg] Rajiv Oliver Work Phone: [facility] 06-25-2023 14:32-0500 Body height 165.1 cm Nhi De La Torre SOLE TIER.WOOD BOAT BUILDER SUPERVISOR Work Phone: [facility] 06-25-2023 14:32-0500 Body weight 95.5 kg Nhi De La Torre SOLE TIER.WOOD BOAT BUILDER SUPERVISOR Work Phone: [facility] 06-25-2023 14:32-0500 Diastolic blood pressure 68 mm[Hg] Nhi De La Torre SOLE TIER.WOOD BOAT BUILDER SUPERVISOR Work Phone: [facility] 06-25-2023 14:32-0500 Heart rate 72 /min Nhi De La Torre SOLE TIER.WOOD BOAT BUILDER SUPERVISOR Work Phone: [facility] 06-25-2023 14:32-0500 SaO2% (BldA) [Mass fraction] 98 % Nhi De La Torre SOLE TIER.WOOD BOAT BUILDER SUPERVISOR Work Phone: [facility] 06-25-2023 14:32-0500 Systolic blood pressure 118 mm[Hg] Nhi De La Torre SOLE TIER.WOOD BOAT BUILDER SUPERVISOR Work Phone: [facility] 06-12-2023 23:05-0500 Diastolic blood pressure 74 mm[Hg] [facility] 06-12-2023 23:05-0500 Heart rate 78 /min [facility] 06-12-2023 23:05-0500 Respiratory rate 16 /min [facility] 06-12-2023 23:05-0500 SaO2% (BldA) [Mass fraction] 97 % [facility] 06-12-2023 23:05-0500 Systolic blood pressure 157 mm[Hg] [facility] 06-12-2023 19:17-0500 Body height 167.64 cm [facility] 06-12-2023 19:17-0500 Body mass index (BMI) [Ratio] 35.6 kg/m2 [facility] 06-12-2023 19:17-0500 Body temperature 97.1 [degF] [facility] 06-12-2023 19:17-0500 Body weight 100.3 kg [facility] 05-14-2023 10:54-0500 Body temperature 98.71 [degF] Guillaume Dominguez MD Work Phone: [facility] 05-14-2023 10:54-0500 Body weight 96.62 kg Guillaume Dominguez MD Work Phone: [facility] 05-14-2023 10:54-0500 Diastolic blood pressure 68 mm[Hg] Guillaume Oliver Work Phone: [facility] 05-14-2023 10:54-0500 Heart rate 74 /min Guillaume Dominguez MD Work Phone: [facility] 05-14-2023 10:54-0500 Respiratory rate 18 /min Guillaume Dominguez MD Work Phone: [facility] 05-14-2023 10:54-0500 SaO2% (BldA) [Mass fraction] 97 % Guillaume Dominguez MD Work Phone: [facility] 05-14-2023 10:54-0500 Systolic blood pressure 110 mm[Hg] Guillaume Dominguez MD Work Phone: [facility] 02-26-2023 19:30-0400 Diastolic blood pressure 98 mm[Hg] [facility] 02-26-2023 19:30-0400 Heart rate 71 /min [facility] 02-26-2023 19:30-0400 Respiratory rate 16 /min [facility] 02-26-2023 19:30-0400 SaO2% (BldA) [Mass fraction] 95 % [facility] 02-26-2023 19:30-0400 Systolic blood pressure 116 mm[Hg] [facility] 02-26-2023 17:33-0400 Body height 167.64 cm [facility] 02-26-2023 17:33-0400 Body mass index (BMI) [Ratio] 33 kg/m2 [facility] 02-26-2023 17:33-0400 Body temperature 96.9 [degF] [facility] 02-26-2023 17:33-0400 Body weight 93 kg [facility] 02-04-2023 13:43-0400 Diastolic blood pressure 80 mm[Hg] Mi Nurse Work Phone: [facility] 02-04-2023 13:43-0400 Heart rate 74 /min Mi Nurse Work Phone: [facility] 02-04-2023 13:43-0400 Systolic blood pressure 131 mm[Hg] Mi Nurse Work Phone: [facility] 02-02-2023 10:57-0400 Diastolic blood pressure 60 mm[Hg] Josefa Flynn SOLE TIER.WOOD BOAT BUILDER SUPERVISOR Work Phone: [facility] 02-02-2023 10:57-0400 Heart rate 102 /min Josefa Flynn SOLE TIER.WOOD BOAT BUILDER SUPERVISOR Work Phone: [facility] 02-02-2023 10:57-0400 SaO2% (BldA) [Mass fraction] 98 % Josefa Flynn SOLE TIER.WOOD BOAT BUILDER SUPERVISOR Work Phone: [facility] 02-02-2023 10:57-0400 Systolic blood pressure 80 mm[Hg] Josefa Flynn SOLE TIER.WOOD BOAT BUILDER SUPERVISOR Work Phone: [facility] 01-11-2023 08:43-0400 Body height 162.6 cm Maykel Whitfield DO Work Phone: [facility] 01-11-2023 08:43-0400 Body weight 95.84 kg Maykel Whitfield DO Work Phone: [facility] 01-11-2023 08:43-0400 Diastolic blood pressure 58 mm[Hg] Maykel hunt DO Work Phone: [facility] 01-11-2023 08:43-0400 Heart rate 77 /min Maykel Whitfield DO Work Phone: [facility] 01-11-2023 08:43-0400 SaO2% (BldA) [Mass fraction] 98 % Maykel Whitfield DO Work Phone: [facility] 01-11-2023 08:43-0400 Systolic blood pressure 96 mm[Hg] Maykel martins DO Work Phone: [facility] 12-30-2022 09:45-0400 Body weight 97.61 kg Curtis Nassar MD Work Phone: [facility] 12-30-2022 09:45-0400 Diastolic blood pressure 85 mm[Hg] Curtis Oliver Work Phone: [facility] 12-30-2022 09:45-0400 Heart rate 80 /min Curtis Nassar MD Work Phone: [facility] 12-30-2022 09:45-0400 Systolic blood pressure 147 mm[Hg] Curtis Nassar MD Work Phone: [facility] 10-27-2022 13:34-0400 Diastolic blood pressure 78 mm[Hg] Josefa Flynn SOLE TIER.WOOD BOAT BUILDER SUPERVISOR Work Phone: [facility] 10-27-2022 13:34-0400 Systolic blood pressure 116 mm[Hg] Josefa Flynn SOLE TIER.WOOD BOAT BUILDER SUPERVISOR Work Phone: [facility] 10-27-2022 13:08-0400 Heart rate 86 /min Josefa Flynn SOLE TIER.WOOD BOAT BUILDER SUPERVISOR Work Phone: [facility] 10-27-2022 13:08-0400 SaO2% (BldA) [Mass fraction] 96 % Josefa Flynn SOLE TIER.WOOD BOAT BUILDER SUPERVISOR Work Phone: [facility] 09-14-2022 10:33-0400 Heart rate 77 /min Moraima Montelongo MD Work Phone: [facility] 09-14-2022 10:33-0400 SaO2% (BldA) [Mass fraction] 97 % Moraima Montelongo MD Work Phone: [facility] 08-15-2022 11:28-0400 Body weight 108.86 kg Guillaume Dominguez MD Work Phone: [facility] 08-15-2022 11:28-0400 Diastolic blood pressure 72 mm[Hg] Guillaume Oliver Work Phone: [facility] 08-15-2022 11:28-0400 Heart rate 101 /min Guillaume Dominguez MD Work Phone: [facility] 08-15-2022 11:28-0400 Respiratory rate 20 /min Guillaume Dominguez MD Work Phone: [facility] 08-15-2022 11:28-0400 SaO2% (BldA) [Mass fraction] 99 % Guillaume Dominguez MD Work Phone: [facility] 08-15-2022 11:28-0400 Systolic blood pressure 126 mm[Hg] Guillaume Dominguez MD Work Phone: [facility] 07-07-2022 10:52-0500 Body temperature 96.4 [degF] Guillaume Dominguez MD Work Phone: [facility] 07-07-2022 10:52-0500 Body weight 106.59 kg Guillaume Dominguez MD Work Phone: [facility] 07-07-2022 10:52-0500 Diastolic blood pressure 78 mm[Hg] Guillaume Oliver Work Phone: [facility] 07-07-2022 10:52-0500 Heart rate 61 /min Guillaume Dominguez MD Work Phone: [facility] 07-07-2022 10:52-0500 Respiratory rate 18 /min Guillaume Dominguez MD Work Phone: [facility] 07-07-2022 10:52-0500 SaO2% (BldA) [Mass fraction] 95 % Guillaume Dominguez MD Work Phone: [facility] 07-07-2022 10:52-0500 Systolic blood pressure 118 mm[Hg] Guillaume Dominguez MD Work Phone: [facility] 06-11-2022 11:21-0500 Body height 167.6 cm Maykel Patel Jr., MD Work Phone: [facility] 06-11-2022 11:21-0500 Body weight 108.86 kg Maykel Patel Jr., MD Work Phone: [facility] 06-11-2022 11:21-0500 Diastolic blood pressure 69 mm[Hg] Maykel Patel Jr., MD Work Phone: [facility] 06-11-2022 11:21-0500 Systolic blood pressure 122 mm[Hg] Maykel Patel Jr., MD Work Phone: [facility] 05-12-2022 17:18-0500 Body weight 109.32 kg Guillaume Dominguez MD Work Phone: [facility] 05-12-2022 17:18-0500 Diastolic blood pressure 72 mm[Hg] Guillaume Oliver Work Phone: [facility] 05-12-2022 17:18-0500 Heart rate 78 /min Guillaume Dominguez MD Work Phone: [facility] 05-12-2022 17:18-0500 SaO2% (BldA) [Mass fraction] 100 % Guillaume Dominguez MD Work Phone: [facility] 05-12-2022 17:18-0500 Systolic blood pressure 118 mm[Hg] Guillaume Dominguez MD Work Phone: [facility] 05-06-2022 15:42-0500 Body temperature 98.29 [degF] Janae Praisler-Wood SOLE TIER.WOOD BOAT BUILDER SUPERVISOR Work Phone: [facility] 05-06-2022 15:42-0500 Body weight 111.77 kg Janae Praisler-Wood SOLE TIER.WOOD BOAT BUILDER SUPERVISOR Work Phone: [facility] 05-06-2022 15:42-0500 Diastolic blood pressure 78 mm[Hg] Janae Praisler-Wood SOLE TIER.WOOD BOAT BUILDER SUPERVISOR Work Phone: [facility] 05-06-2022 15:42-0500 Heart rate 105 /min Janae Praisler-Wood SOLE TIER.WOOD BOAT BUILDER SUPERVISOR Work Phone: [facility] 05-06-2022 15:42-0500 Respiratory rate 30 /min Janae Praisler-Wood SOLE TIER.WOOD BOAT BUILDER SUPERVISOR Work Phone: [facility] 05-06-2022 15:42-0500 SaO2% (BldA) [Mass fraction] 98 % Janae Aurora-Rowdy SOLE TIER.WOOD BOAT BUILDER SUPERVISOR Work Phone: [facility] 05-06-2022 15:42-0500 Systolic blood pressure 110 mm[Hg] Janaeradha Simon-Rowdy SOLE TIER.WOOD BOAT BUILDER SUPERVISOR Work Phone: [facility] 04-28-2022 09:40-0500 Body height 165.1 cm Respiratory Wstr Work Phone: [facility] 04-28-2022 09:40-0500 Body weight 112.04 kg Respiratory Wstr Work Phone: [facility] 04-28-2022 09:40-0500 Heart rate 62 /min Respiratory Wstr Work Phone: [facility] 04-28-2022 09:40-0500 Respiratory rate 16 /min Respiratory Wstr Work Phone: [facility] 04-28-2022 09:40-0500 SaO2% (BldA) [Mass fraction] 97 % Respiratory Wstr Work Phone: [facility] 04-27-2022 13:37-0500 Body weight 112.04 kg Guillaume Dominguez MD Work Phone: [facility] 04-27-2022 13:37-0500 Diastolic blood pressure 82 mm[Hg] Guillaume Oliver Work Phone: [facility] 04-27-2022 13:37-0500 Heart rate 88 /min Guillaume Dominguez MD Work Phone: [facility] 04-27-2022 13:37-0500 SaO2% (BldA) [Mass fraction] 97 % Guillaume Dominguez MD Work Phone: [facility] 04-27-2022 13:37-0500 Systolic blood pressure 138 mm[Hg] Guillaume Dominguez MD Work Phone: [facility] 03-11-2022 09:17-0400 Body height 167.6 cm Oralia Garcia SOLE TIER.WOOD BOAT BUILDER SUPERVISOR Work Phone: [facility] 03-11-2022 09:17-0400 Body weight 112.63 kg Oralia Garcia SOLE TIER.WOOD BOAT BUILDER SUPERVISOR Work Phone: [facility] 03-11-2022 09:17-0400 Heart rate 92 /min Oralia Garcia SOLE TIER.WOOD BOAT BUILDER SUPERVISOR Work Phone: [facility] 03-11-2022 09:17-0400 SaO2% (BldA) [Mass fraction] 96 % Oralia Garcia SOLE TIER.WOOD BOAT BUILDER SUPERVISOR Work Phone: [facility] 03-04-2022 15:19-0400 Diastolic blood pressure 77 mm[Hg] Radha Walters MD Work Phone: [facility] 03-04-2022 15:19-0400 Heart rate 103 /min Radha Walters MD Work Phone: [facility] 03-04-2022 15:19-0400 Respiratory rate 18 /min Radha Walters MD Work Phone: [facility] 03-04-2022 15:19-0400 SaO2% (BldA) [Mass fraction] 96 % Radha Walters MD Work Phone: [facility] 03-04-2022 15:19-0400 Systolic blood pressure 107 mm[Hg] Radha Oliver Work Phone: [facility] 02-28-2022 08:37-0400 Diastolic blood pressure 83 mm[Hg] [facility] Work Phone: 02-28-2022 08:37-0400 Heart rate 75 /min [facility] Work Phone: 02-28-2022 08:37-0400 Respiratory rate 18 /min [facility] Work Phone: 02-28-2022 08:37-0400 SaO2% (BldA) [Mass fraction] 95 % [facility] Work Phone: 02-28-2022 08:37-0400 Systolic blood pressure 143 mm[Hg] [facility] Work Phone: 02-28-2022 05:36-0400 Body height 167.64 cm [facility] Work Phone: 02-28-2022 05:36-0400 Body mass index (BMI) [Ratio] 39.8 kg/m2 [facility] Work Phone: 02-28-2022 05:36-0400 Body temperature 98.6 [degF] [facility] Work Phone: 02-28-2022 05:36-0400 Body weight 111.9 kg [facility] Work Phone: 02-21-2022 02:46-0400 Diastolic blood pressure 73 mm[Hg] [facility] Work Phone: 02-21-2022 02:46-0400 Heart rate 75 /min [facility] Work Phone: 02-21-2022 02:46-0400 SaO2% (BldA) [Mass fraction] 97 % [facility] Work Phone: 02-21-2022 02:46-0400 Systolic blood pressure 94 mm[Hg] [facility] Work Phone: 02-21-2022 01:15-0400 Respiratory rate 22 /min [facility] Work Phone: 02-21-2022 01:08-0400 Body height 167.64 cm [facility] Work Phone: 02-21-2022 01:08-0400 Body mass index (BMI) [Ratio] 40 kg/m2 [facility] Work Phone: 02-21-2022 01:08-0400 Body temperature 96.7 [degF] [facility] Work Phone: 02-21-2022 01:08-0400 Body weight 112.6 kg [facility] Work Phone: 02-16-2022 20:55-0400 Respiratory rate 16 /min [facility] Work Phone: 02-16-2022 16:44-0400 Body height 167.64 cm [facility] Work Phone: 02-16-2022 16:44-0400 Body mass index (BMI) [Ratio] 39.6 kg/m2 [facility] Work Phone: 02-16-2022 16:44-0400 Body temperature 96.9 [degF] [facility] Work Phone: 02-16-2022 16:44-0400 Body weight 111.58 kg [facility] Work Phone: 02-16-2022 16:44-0400 Diastolic blood pressure 116 mm[Hg] [facility] Work Phone: 02-16-2022 16:44-0400 Heart rate 78 /min [facility] Work Phone: 02-16-2022 16:44-0400 SaO2% (BldA) [Mass fraction] 98 % [facility] Work Phone: 02-16-2022 16:44-0400 Systolic blood pressure 167 mm[Hg] [facility] Work Phone: 02-10-2022 14:58-0400 Body height 165.1 cm Guillaume Dominguez MD Work Phone: [facility] 02-10-2022 14:58-0400 Body weight 111.58 kg Guillaume Dominguez MD Work Phone: [facility] 02-10-2022 14:58-0400 Diastolic blood pressure 68 mm[Hg] Guillaume Oliver Work Phone: [facility] 02-10-2022 14:58-0400 Heart rate 82 /min Guillaume Dominguez MD Work Phone: [facility] 02-10-2022 14:58-0400 Systolic blood pressure 112 mm[Hg] Guillaume Dominguez MD Work Phone: [facility] 01-19-2022 14:43-0400 Body temperature 98.71 [degF] Comfort Patterson SOLE TIER.CUSTOMER INSIGHT ANALYST Work Phone: [facility] 01-19-2022 14:43-0400 Body weight 112.49 kg Comfort Patterson SOLE TIER.CUSTOMER INSIGHT ANALYST Work Phone: [facility] 01-19-2022 14:43-0400 Diastolic blood pressure 64 mm[Hg] Comfort Patterson SOLE TIER.CUSTOMER INSIGHT ANALYST Work Phone: [facility] 01-19-2022 14:43-0400 Heart rate 72 /min Comfort Patterson SOLE TIER.CUSTOMER INSIGHT ANALYST Work Phone: [facility] 01-19-2022 14:43-0400 Respiratory rate 24 /min Comfort Patterson SOLE TIER.CUSTOMER INSIGHT ANALYST Work Phone: [facility] 01-19-2022 14:43-0400 SaO2% (BldA) [Mass fraction] 97 % Comfort Patterson SOLE TIER.CUSTOMER INSIGHT ANALYST Work Phone: [facility] 01-19-2022 14:43-0400 Systolic blood pressure 112 mm[Hg] Comfort Patterson SOLE TIER.CUSTOMER INSIGHT ANALYST Work Phone: [facility] 12-17-2021 14:14-0400 Body temperature 96.69 [degF] Sasha Xavi SOLE TIER.WOOD BOAT BUILDER SUPERVISOR Work Phone: [facility] 12-17-2021 14:14-0400 Body weight 114.49 kg Sasha Xavi SOLE TIER.WOOD BOAT BUILDER SUPERVISOR Work Phone: [facility] 12-17-2021 14:14-0400 Diastolic blood pressure 82 mm[Hg] Sasha Xavi SOLE TIER.WOOD BOAT BUILDER SUPERVISOR Work Phone: [facility] 12-17-2021 14:14-0400 Heart rate 90 /min Sasha Xavi SOLE TIER.WOOD BOAT BUILDER SUPERVISOR Work Phone: [facility] 12-17-2021 14:14-0400 Respiratory rate 20 /min Sasha Xavi SOLE TIER.WOOD BOAT BUILDER SUPERVISOR Work Phone: [facility] 12-17-2021 14:14-0400 SaO2% (BldA) [Mass fraction] 97 % Sasha Gallok SOLE TIER.WOOD BOAT BUILDER SUPERVISOR Work Phone: [facility] 12-17-2021 14:14-0400 Systolic blood pressure 130 mm[Hg] Sasha Hurley APRN.WOOD BOAT BUILDER SUPERVISOR Work Phone: [facility] 11-03-2021 10:33-0400 Body height 167.6 cm Gamaliel Alegre MD Work Phone: [facility] 11-03-2021 10:33-0400 Body weight 113.63 kg Gamaliel Alegre MD Work Phone: [facility] 11-03-2021 10:33-0400 Diastolic blood pressure 86 mm[Hg] Gamaliel Leonard i, MD Work Phone: [facility] 11-03-2021 10:33-0400 Heart rate 81 /min Gamaliel Alegre MD Work Phone: [facility] 11-03-2021 10:33-0400 SaO2% (BldA) [Mass fraction] 98 % Gamaliel Alegre MD Work Phone: [facility] 11-03-2021 10:33-0400 Systolic blood pressure 124 mm[Hg] Gamaliel Alegre MD Work Phone: [facility] 10-03-2021 14:32-0400 Body weight 112.95 kg Iban Soto MD Work Phone: [facility] 10-03-2021 14:32-0400 Diastolic blood pressure 68 mm[Hg] Iban Soto MD Work Phone: [facility] 10-03-2021 14:32-0400 Heart rate 60 /min Iban Soto MD Work Phone: [facility] 10-03-2021 14:32-0400 Respiratory rate 20 /min Iban Soto MD Work Phone: [facility] 10-03-2021 14:32-0400 SaO2% (BldA) [Mass fraction] 96 % Iban Soto MD Work Phone: [facility] 10-03-2021 14:32-0400 Systolic blood pressure 126 mm[Hg] Iban Soto MD Work Phone: [facility] 08-22-2021 14:29-0400 Body weight 114.76 kg Curtis Nassar MD Work Phone: [facility] 08-22-2021 14:29-0400 Diastolic blood pressure 74 mm[Hg] Curtis Oliver Work Phone: [facility] 08-22-2021 14:29-0400 Heart rate 55 /min Curtis Nassar MD Work Phone: [facility] 08-22-2021 14:29-0400 Systolic blood pressure 112 mm[Hg] Curtis Nassar MD Work Phone: [facility] Encounters Encounter Date Encounter Type Care Provider Facility Start: 01-26-2025 End: 01-26-2025 ambulatory Guillaume D Talampas Facility:[facility] Start: 12-25-2024 End: 12-25-2024 Telephone encounter Radha Walters MD Work Phone: Dermatology Comment on above: Patient Update Start: 12-19-2024 ambulatory Guillaume Melody Talampas Facilit y:[facility] Start: 11-03-2024 ambulatory Guillaume D Talampas Facilit y:[facility] Start: 10-31-2024 Registered Referred Deep Dela Cruz MD -[facility] Start: 10-31-2024 End: 10-31-2024 ambulatory Guillaume D Talampas Facility:[facility] Start: 10-26-2024 Registered Referred Deep Dela Cruz MD -[facility] Start: 10-26-2024 End: 10-26-2024 ambulatory Guillaume D Talampas Facility:[facility] Start: 09-26-2024 End: 09-26-[address] Guillaume Dominguez MD Work Phone: [facility] Work Phone: Start: 09-26-2024 End: 09-26-2024 Departed Referred Deep Dela Cruz MD -[facility] Start: 09-26-2024 Registered Referred Deep Dela Cruz MD -[facility] Start: 09-26-2024 End: 09-26-2024 ambulatory Guillaume Dominguez Facility:[facility] Start: 09-21-2024 End: 09-21-[address] Guillaume Dominguez MD Work Phone: [facility] Work Phone: Start: 09-21-2024 End: 09-21-2024 Departed Referred Deep Dela Cruz MD -[facility] Start: 09-21-2024 End: 09-21-2024 ambulatory Deep BABCOCK Facility:[facility] Start: 09-18-2024 End: 09-18-2024 ambulatory Guillaume Dominguez MD Work Phone: [facility] Start: 09-18-2024 End: 09-18-2024 Patient encounter procedure Guillaume Dominguez MD Work Phone: [facility] Comment on above: Population Health Na vigation Outreach ([facility] ) Start: 09-11-2024 End: 09-11-2024 Departed Referred Deep Dela Cruz MD -[facility] Start: 09-11-2024 Registered Referred Deep Dela Cruz MD -[facility] Start: 09-11-2024 End: 09-11-2024 ambulatory Deep BABCOCK Facility:[facility] Start: 08-17-2024 End: 08-17-2024 ambulatory Guillaume Dominguez MD Work Phone: [facility] Start: 08-17-2024 End: 08-17-2024 Patient encounter procedure Guillaume Dominguez MD Work Phone: [facility] Comment on above: Population Health Na vigation Outreach ([facility] ) Start: 08-11-2024 End: 08-11-[address] Guillaume Dominguez MD Work Phone: [facility] Work Phone: Start: 08-11-2024 End: 08-11-2024 Departed Referred Deep Del[facility] -[facility] Start: 08-11-2024 Registered Referred Deep Dela Cruz MD -[facility] Start: 08-11-2024 End: 08-11-2024 ambulatory Guillaume Santiagoampjulianne Facility:[facility] Start: 08-09-2024 End: 08-16-2024 Telephone encounter Adina Lay APRN.CNP Work Phone: [facility] Comment on above: Medication Dosage Ad justment Start: 08-08-2024 End: 08-08-[address] Guillaume Dominguez MD Work Phone: [facility] Work Phone: Start: 08-08-2024 End: 08-08-2024 Departed Referred Deep Dela Cruz MD -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, subsequent encounter (Primary Dx) Start: 08-03-2024 End: 08-03-2024 ambulatory TIKA JONES Facility:[facility] Start: 08-02-2024 End: 08-02-2024 ambulatory TIKA JONES [facility] Start: 08-02-2024 End: 08-02-2024 Subsequent hospital visit by physician Tika Jones MD Work Phone: [facility] Comment on above: Nontraumatic intracr anial hemorrhage, unspecified (HCC) Start: 08-01-2024 End: 10-31-2024 Telephone encounter Tika Jones MD Work Phone: [facility] Comment on above: 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 Start: 07-10-2024 ambulatory Guillaume D Talampas Facilit y:[facility] Start: 07-10-2024 Registered Referred Deep Dela Cruz MD -[facility] Start: 06-22-2024 End: 06-22-2024 Refill Rajiv Walker MD Work Phone: [facility] Comment on above: Refill Request Start: 06-20-2024 End: 06-20-2024 Departed Referred Deep Dela Cruz MD -[facility] Start: 06-20-2024 End: 06-20-2024 ambulatory Guillaume D Talampas Facility:[facility] Start: 06-13-2024 End: 06-20-2024 Refill Rajiv Walker MD Work Phone: [facility] Comment on above: Refill Request Start: 06-09-2024 ambulatory Guillaume D Talampas Facilit y:[facility] Start: 06-09-2024 Registered Referred Deep Dela Cruz MD -[facility] Start: 06-05-2024 ambulatory Guillaume D Talampas Facilit y:[facility] Start: 06-05-2024 Registered Referred Deep Dela Cruz MD -[facility] Start: 05-29-2024 End: 05-29-2024 Telephone encounter Guillaume Dominguez MD Work Phone: Internal Medicine [place] Comment on above: [facility] requesting records Start: 05-29-2024 ambulatory Guillaume D Talampas Facilit y:[facility] Start: 05-29-2024 Registered Referred Deep Dela Cruz MD -[facility] Start: 05-22-2024 End: 07-04-2024 Telephone encounter Guillaume Dominguez MD Work Phone: Internal Medicine [place] Comment on above: Faxed to [facility] Start: 05-22-2024 ambulatory Guillaume Dominguez Facilit y:[place] [facility] Start: 05-22-2024 Registered Referred Deep Dela Cruz MD -[facility] Start: 05-09-2024 End: 05-11-2024 Telephone encounter Adina Lay APRN.WOOD BOAT BUILDER SUPERVISOR Work Phone: [facility] Start: 05-06-2024 End: 05-06-2024 ambulatory Amanda Patterson SOLE TIER.WOOD BOAT BUILDER SUPERVISOR Work Phone: Critical Care Start: 05-06-2024 Emergency department patient visit GUILLAUME DOMINGUEZ Facility:[facility] Start: 05-05-2024 End: 05-06-2024 Emergency department patient visit Dr. Arden Leger MD -Emergency Department Work Phone: Start: 05-05-2024 End: 05-05-2024 Telemedicine consultation with patient Adina Lay GM.WOOD BOAT BUILDER SUPERVISOR Work Phone: [facility] Start: 05-05-2024 End: 05-05-2024 ambulatory Adina Tavo SOLE TIER.WOOD BOAT BUILDER SUPERVISOR Work Phone: [facility] Comment on above: Type 2 diabetes [...] Guillaume Dominguez MD Work Phone: Internal Medicine [place] Comment on above: Pruritic condition ( Primary Dx); Anemia, unspecified type; Type 2 diabetes mellitus with peripheral neuropathy (HCC); Vitamin D deficiency; Vitamin B12 deficiency; Pedal edema; Dementia, unspecified dementia severity, unspecified dementia type, unspecified whether behavioral, psychotic, or mood disturbance or anxiety (HCC) Start: 04-28-2024 End: 04-28-2024 ambulatory GUILLAUME DOMINGUEZ Facility:[facility] Start: 04-25-2024 ambulatory Guillaume Dominguez Facilit y:[facility] Start: 04-14-2024 End: 04-14-2024 Telephone encounter Oralia Garcia APRN.WOOD BOAT BUILDER SUPERVISOR Work Phone: Pain Management Comment on above: Appointment Start: 03-30-2024 End: 03-30-2024 ambulatory MORAIMA MONTELONGO Facility:[facility] Start: 03-10-2024 End: 03-10-2024 Telephone encounter Moraima Montelongo MD Work Phone: Pain Management Comment on above: Cardiac Clearance (A nticoagulation ) Lumbar spondylosis ( Primary Dx); Spondylolisthesis of lumbar region; Radiculopathy, lumbar region Start: 03-10-2024 End: 03-10-2024 ambulatory ORALIA GARCIA Facility:[facility] Start: 03-10-2024 End: 03-10-2024 Patient encounter procedure Oralia Garcia APRN.WOOD BOAT BUILDER SUPERVISOR Work Phone: Pain Management Comment on above: Lumbar spondylosis ( Primary Dx); Radiculopathy, lumbar region Start: 01-13-2024 Telephone encounter Guillaume ventura MD Work Phone: [facility] [place] Comment on above: requesting allergy l ist to be faxed to [facility] Start: 01-10-2024 End: 01-10-2024 Office outpatient visit 15 minutes Comfort Patterson APRN.CUSTOMER INSIGHT ANALYST Work Phone: [facility] [place] Comment on above: UTI symptoms (Primar y Dx) Start: 01-10-2024 End: 01-10-2024 ambulatory COMFORT PATTERSON Facility:[facility] Start: 12-31-2023 Telephone encounter Josefa ramirez APRN.WOOD BOAT BUILDER SUPERVISOR Work Phone: [facility] [place] Comment on above: Results Start: 12-27-2023 End: 12-27-2023 ambulatory JOSEFA CAPUTO Facility:[facility] Start: 12-27-2023 End: 12-27-2023 Subsequent hospital visit by physician [facility] [place]ace Work Phone: Radiology Comment on above: Acute pain of right knee [M25.561] Start: 12-24-2023 End: 12-24-2023 Patient encounter procedure Josefa Caputo SOLE TIER.WOOD BOAT BUILDER SUPERVISOR Work Phone: [facility] [place] Comment on above: Acute pain of right knee (Primary Dx) Start: 12-21-2023 Refill Guillaume abarca MD Work Phone: [facility] [place] Comment on above: Refill Request Start: 12-10-2023 End: 12-10-2023 Office outpatient visit 25 minutes Guillaume Dominguez MD Work Phone: [facility] [place] Comment on above: Cognitive impairment (Primary Dx); [...] Guillaume ventura MD Work Phone: [facility] [place] Comment on above: Patient Update; Medi cation Problem Start: 11-05-2023 ambulatory Radha Walters MD Work Phone: Dermatology Comment on above: Medical necessity Start: 10-29-2023 End: 10-29-2023 Patient encounter procedure Curtis Nassar MD Work Phone: Endocrinology [place] Comment on above: Type 2 diabetes leonie itus with peripheral neuropathy (HCC) (Primary Dx) Start: 10-28-2023 Refill Guillaume abarca MD Work Phone: [facility] [place] Comment on above: Refill Request Start: 10-11-2023 End: 10-11-2023 Office outpatient visit 25 minutes Comfort Patterson APRN.CUSTOMER INSIGHT ANALYST Work Phone: [facility] [place] Comment on above: 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, without long-term current use of insulin ([facility]) (Primary Dx); Mixed hyperlipidemia; Class 3 severe obesity due to excess calories with serious comorbidity and body mass index (BMI) of 40.0 to 44.9 in adult (HCC); Other specified glaucoma, unspecified laterality; Pernicious anemia; Lumbar spondylosis; Lumbar degenerative disc disease; Carotid artery stenosis without cerebral infarction, bilateral Start: 10-07-2023 Telephone encounter Rajiv domingo MD Work Phone: [facility] Comment on above: Medication Problem Start: 10-04-2023 End: 10-04-2023 Nursing evaluation of patient and report Mi Nurse Work Phone: [facility] [place] Comment on above: Pernicious anemia (P rimary Dx) Start: 09-28-2023 Telephone encounter Rajiv domingo MD Work Phone: [facility] Comment on above: Medication Problem Start: 09-17-2023 Refill Guillaume abarca MD Work Phone: [facility] [place] Comment on above: Refill Request Start: 09-06-2023 End: 09-06-2023 Nursing evaluation of patient and report Mi Nurse Work Phone: [facility] [place] Comment on above: Pernicious anemia (P rimary Dx) Start: 08-16-2023 Telephone encounter Josefa ramirez SOLE TIER.WOOD BOAT BUILDER SUPERVISOR Work Phone: [facility] [place] Comment on above: Orders Medication Problem Start: 08-13-2023 Telephone encounter Guillaume ventura MD Work Phone: [facility] Medicine [place] Comment on above: Insurance Authorizat ion PA required Start: 08-13-2023 End: 08-13-2023 Patient encounter procedure Josefa Caputo SOLE TIER.WOOD BOAT BUILDER SUPERVISOR Work Phone: [facility] [place] Comment on above: Current moderate epi sode of major depressive disorder, unspecified whether recurrent ([facility]) (Primary Dx); Carotid stenosis, right; Memory deficit; [...] Subsequent hospital visit by physician Diagnostic Mammo [facility] Mamm[facility] Start: 07-08-2023 End: 07-08-2023 Patient encounter procedure Rajiv Walker MD Work Phone: Endocrinology [place] Comment on above: 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, without long-term current use of insulin (HCC) (Primary Dx); Class 1 obesity due to excess calories with serious comorbidity and body mass index (BMI) of 34.0 to 34.9 in adult Start: 07-07-2023 Telephone encounter Guillaume ventura MD Work Phone: [facility] [place] Comment on above: Abnormal mammogram l nikki [...] 06-12-2023 End: 06-12-2023 [facility] Start: 05-14-2023 End: 05-14-2023 Office outpatient visit 25 minutes Guillaume Dominguez MD Work Phone: Internal Medicine [place] Comment on above: Memory difficulties (Primary Dx); Vitamin D deficiency; Chronic cough; Type 2 diabetes mellitus with peripheral neuropathy (HCC); Breast cancer screening by mammogram; Encounter for immunization Start: 05-04-2023 End: 05-04-2023 Nursing evaluation of patient and report Mi Nurse Work Phone: [facility] Comment on above: Pernicious anemia (P rimary Dx) Start: 03-30-2023 End: 03-30-2023 ambulatory Curtis Nassar MD Work Phone: [facility] Comment on above: Type 2 diabetes leonie itus with peripheral neuropathy (HCC) (Primary Dx) Start: 03-30-2023 End: 03-30-2023 Telemedicine consultation with patient Curtis Nassar MD Work Phone: [facility] Start: 03-18-2023 Refill Josefa Caputo APRN.CNP Work Phone: Internal Medicine [place] Comment on above: Refill Request Start: 03-04-2023 End: 03-04-2023 Nursing evaluation of patient and report Mi Nurse Work Phone: [facility] [place] Comment on above: Pernicious anemia (P rimary Dx) Start: 02-26-2023 End: 02-26-2023 [facility] Start: 02-19-2023 Refill Guillaume abarca MD Work Phone: [facility] Medicine [place] Comment on above: Refill Request Start: 02-04-2023 End: 02-04-2023 Nursing evaluation of patient and report Mi Nurse Work Phone: [facility] Comment on above: Pernicious anemia (P rimary Dx) Start: 02-02-2023 Telephone encounter Josefa Cleav er SOLE TIER.WOOD BOAT BUILDER SUPERVISOR Work Phone: [facility] Comment on above: Orders Start: 02-02-2023 End: 02-02-2023 Patient encounter procedure Josefa Flynn GM.WOOD BOAT BUILDER SUPERVISOR Work Phone: [facility] [place] Comment on above: Hypotension due to d rugs (Primary Dx); Chronic fatigue; Memory deficit; Obesity, Class II, BMI 35-39.9; Need for influenza vaccination; Encounter for therapeutic drug monitoring; Type 2 diabetes mellitus with peripheral neuropathy (HCC); Mixed hyperlipidemia Start: 01-28-2023 End: 01-28-2023 Subsequent hospital visit by physician [facility] Work Phone: Cardiology Lab Comment on above: Irregular heart rhyt hm [I49.9] Start: 01-27-2023 Telephone encounter Jo-Ann abarca laborer carpentry dock Lab Comment on above: Reminder Call Start: 01-13-2023 Telephone encounter Guillaume ventura MD Work Phone: [facility] [place] Comment on above: Forms Start: 01-11-2023 End: [...] Telephone encounter Curtis landin MD Work Phone: [facility] Comment on above: Medication Problem Start: 01-04-2023 End: 01-04-2023 Nursing evaluation of patient and report Mi Nurse Work Phone: [facility] Comment on above: Pernicious anemia (P rimary Dx) Start: 12-30-2022 End: 12-30-2022 Patient encounter procedure Curtis Nassar MD Work Phone: [facility] Comment on above: DM (diabetes mellitu s), type 2 with neurological complications (HCC) (Primary Dx); Type 2 diabetes mellitus with peripheral neuropathy (HCC) Start: 12-25-2022 Telephone encounter Moraima allen MD Work Phone: Pain Management Comment on above: Patient Question Start: 12-04-2022 Refill Guillaume abarca MD Work Phone: [facility] [place] Start: 11-06-2022 End: 11-06-2022 ambulatory Nhi O'Kwame PT [facility] Comment on above: Spinal stenosis of l umbar region, unspecified whether neurogenic claudication present (Primary Dx); Lumbar spondylosis; Spondylolisthesis of lumbar region; Radiculopathy, lumbar region Start: 11-03-2022 End: 11-03-2022 Nursing evaluation of patient and report Mi Nurse Work Phone: [facility] Comment on above: Pernicious anemia (P rimary Dx) Start: 10-27-2022 Telephone encounter Josefa ramirez APRN.WOOD BOAT BUILDER SUPERVISOR Work Phone: [facility] Comment on above: Senior Game Designer - O ther Start: 10-27-2022 End: 10-27-2022 Patient encounter procedure Josefa Caputo APRN.WOOD BOAT BUILDER SUPERVISOR Work Phone: [facility] Comment on above: Current moderate epi sode of major depressive disorder, unspecified whether recurrent (HCC) (Primary Dx); Anxiety disorder, unspecified type; Radiculopathy, lumbar region; Chronic SI joint pain; Single subsegmental pulmonary embolism without acute cor pulmonale (HCC); Type 2 diabetes mellitus with peripheral neuropathy (HCC) Start: 10-12-2022 End: 10-12-2022 ambulatory Nhi O'Kwame PT [facility] Comment on above: Spinal stenosis of l umbar region, unspecified whether neurogenic claudication present (Primary Dx); Lumbar spondylosis; Spondylolisthesis of lumbar region; Radiculopathy, lumbar region Refill Request Start: 10-02-2022 Telephone encounter Moraima allen MD Work Phone: Pain Management Comment on above: Anticoagulation Start: 09-29-2022 End: 09-29-2022 Nursing evaluation of patient and report Mi Nurse Work Phone: Family Medicine [place] Comment on above: Pernicious anemia (P rimary Dx) Start: 09-25-2022 Refill Curtis allen MD Work Phone: Endocrinology [place] Comment on above: Refill Request Start: 09-23-2022 End: 09-23-2022 Refill Guillaume Dominguez MD Work Phone: Internal [facility] [place] Comment on above: Refill Request Kidney stone [...] Start: 09-10-2022 End: 09-10-2022 ambulatory Lucia Rojas QUOTER Work Phone: [facility] Comment on above: Spinal stenosis of l umbar region, unspecified whether neurogenic claudication present (Primary Dx); Lumbar spondylosis; Spondylolisthesis of lumbar region; Radiculopathy, lumbar region Start: 09-03-2022 End: 09-03-2022 ambulatory Veda Vital PT Work Phone: [facility] Comment on above: Spinal stenosis of l umbar region, unspecified whether neurogenic claudication present (Primary Dx); Lumbar spondylosis; Spondylolisthesis of lumbar region; Radiculopathy, lumbar region Start: 09-01-2022 End: 09-01-2022 Nursing evaluation of patient and report Mi Nurse Work Phone: [facility] Comment on above: Pernicious anemia (P rimary Dx) Start: 09-01-2022 End: 09-01-2022 ambulatory Veda Vital PT Work Phone: [facility] Comment on above: Spinal stenosis of l umbar region, unspecified whether neurogenic claudication present (Primary Dx); Lumbar spondylosis; Spondylolisthesis of lumbar region; Radiculopathy, lumbar region Start: 08-24-2022 Telephone encounter Guillaume ventura MD Work Phone: [facility] [place] Comment on above: Patient Question Patient Update; Appo intment Start: 08-18-2022 End: 08-18-2022 ambulatory Veda Vital PT Work Phone: [facility] Comment on above: Spinal [...] Guillaume ventura MD Work Phone: [facility] [place] Comment on above: referral request; Op ened In Error Referral Request; Donny granados Update Start: 08-07-2022 Refill Curtis allen MD Work Phone: Endocrinology [place] Comment on above: Refill Request Start: 08-04-2022 End: 08-04-2022 Nursing evaluation of patient and report Mi Nurse Work Phone: Family Medicine [place] Comment on above: Pernicious anemia (P rimary Dx) Start: 08-03-2022 Telephone encounter Guillaume ventura MD Work Phone: [facility] [place] Comment on above: handicap prescriptio n Start: 07-31-2022 Telephone encounter Moraima allen MD Work Phone: Pain Management Comment on above: Patient Question Start: 07-07-2022 End: 07-07-2022 Nursing evaluation of patient and report Mi Nurse Work Phone: [facility] [place] Comment on above: Pernicious anemia (P rimary Dx) Start: 07-07-2022 End: 07-07-2022 Office outpatient visit 15 minutes Guillaume Dominguez MD Work Phone: [facility] [place] Comment on above: Spondylolisthesis of lumbar region; Open compression fracture of L1 lumbar vertebra with routine healing, subsequent encounter; Anxiety disorder, unspecified type Start: 06-30-2022 Telephone encounter Guillaume vetnura MD Work Phone: [facility] [place] Comment on above: back pain persisting (Recommendations/) Start: 06-23-2022 Telephone encounter Moraima allen MD Work Phone: Pain Management Comment on above: Patient Question Start: 06-18-2022 Telephone encounter Guillaume ventura MD Work Phone: [facility] [place] Comment on above: Patient Update Start: 06-17-2022 Telephone encounter Curtis landin MD Work Phone: [facility] Comment on above: Medication Question Start: 06-11-2022 End: 06-11-2022 Orders Only Moraima Montelongo MD Work Phone: Pain Management Comment on above: Spinal stenosis of l umbar region, unspecified whether neurogenic claudication present (Primary Dx); Lumbar spondylosis; Radiculopathy, lumbar region; Spondylolisthesis of lumbar region Kidney stone (Primar y Dx) Start: 06-04-2022 E-mail encounter bernard m caregiver Maykel Patel Jr., MD Work [...] Guillaume Dominguez MD Work Phone: Internal [facility] [place] Comment on above: Crushing injury of r ight middle finger, sequela (Primary Dx); Renal calculus, left Start: 05-07-2022 Telephone encounter Maykel Patel MD Work Phone: Urology Comment on above: Eliquis question Start: 05-06-2022 End: 05-06-2022 Subsequent hospital visit by physician La[facility] [place] Work Phone: Radiology Comment on above: Crushing injury of r ight middle finger, initial encounter [S67.192A] Start: 05-06-2022 End: 05-06-2022 Patient encounter procedure Janae Sandoval APRN.CNP Work Phone: [facility] Comment on above: Crushing injury of r ight middle finger, initial encounter (Primary Dx); Open fracture of tuft of distal phalanx of finger; Nausea Start: 05-06-2022 ambulatory Guillaume abarca MD Work Phone: [facility] [place] Comment on above: Finger Injury Start: 05-04-2022 End: 05-04-2022 Nursing evaluation of patient and report Mi Nurse Work Phone: [facility] [place] Comment on above: Pernicious anemia (P rimary Dx) Start: 04-29-2022 End: 04-29-2022 Patient encounter procedure Moraima Montelongo MD Work Phone: Pain Management Comment on above: Lumbosacral facet tawanna int syndrome (Primary Dx); Spondylolisthesis of lumbar region; Spinal stenosis of lumbar region, unspecified whether neurogenic claudication present Start: 04-28-2022 End: 04-28-2022 ambulatory Respiratory Therapist [facility] [employer] Work Phone: Pulmonary Medicine Comment on above: Spirometry Start: 04-28-2022 End: 04-28-2022 Patient encounter procedure Respiratory Therapist [facility] Work Phone: [facility] Start: 04-27-2022 End: 04-27-2022 Office outpatient visit 40 minutes Guillaume Dominguez MD Work Phone: [facility] [place] Comment on above: FIELD (dyspnea on exer tion) (Primary Dx); Dietary iron deficiency without anemia; Grade I diastolic dysfunction; Chronic cough; Renal calculus, left; Primary hypertension; Hypoalbuminemia; DM (diabetes mellitus), type 2 with neurological complications ([facility]); B12 deficiency; Vitamin D deficiency; Irregular heart rhythm; Memory difficulty; Class 2 severe obesity due to excess calories with serious comorbidity and body mass index (BMI) of 39.0 to 39.9 in adult ([facility]); History of Jordin-en-Y gastric bypass Start: 04-09-2022 Telephone encounter Moraima allen MD Work Phone: Pain Management Comment on above: Patient Update; Appo intment Start: 04-08-2022 End: 04-08-2022 Subsequent hospital visit by physician Xr [facility] [place] Work Phone: Radiology Comment on above: Renal calculus, left [N20.0] Start: 04-06-2022 End: 04-06-2022 Nursing evaluation of patient and report Mi Nurse Work Phone: [facility] Comment on above: Pernicious anemia (P rimary Dx) Start: 03-23-2022 Refill Curtis allen MD Work Phone: Endocrinology [place] Comment on above: Refill Request Start: 03-19-2022 Telephone encounter Radha sutherland MD Work Phone: Dermatology Comment on above: Patient Question Start: 03-12-2022 Orders Only Moraima Montelongo MD Work Phone: Pain Management Comment on above: Chronic left SI join t pain (Primary Dx); Sacroiliac joint pain Start: 03-11-2022 End: 03-11-2022 Patient encounter procedure Oralia Garcia SOLE TIER.WOOD BOAT BUILDER SUPERVISOR Work Phone: Pain Management Comment on above: [...] report Mi Nurse Work Phone: [facility] [place] Comment on above: Pernicious anemia (P rimary Dx); Need for vaccination Start: 02-28-2022 End: 02-28-2022 Emergency department patient visit [facility] Start: 02-27-2022 Telephone encounter Moraima allen MD Work Phone: Pain Management Comment on above: Patient Update Start: 02-21-2022 End: 02-21-2022 Emergency department patient visit [facility] Start: 02-16-2022 End: 02-16-2022 Emergency department patient visit [facility] Start: 02-16-2022 Telephone encounter Moraima allen [...] adult, unspecified whether serious comorbidity present (HCC) Start: 02-10-2022 End: 02-10-2022 Orders Only Moraima [...] End: 01-19-2022 Patient encounter procedure Comfort Patterson SOLE TIER.CUSTOMER INSIGHT ANALYST Work Phone: Internal [facility] [place] Comment on above: Fatigue, unspecified type (Primary Dx); Iron deficiency Start: 01-12-2022 Orders Only Moraima Montelongo MD Work Phone: Pain Management Comment on above: Chronic left SI join t pain (Primary Dx); Sacroiliac joint pain; SI joint arthritis; Chronic SI joint pain Start: 01-05-2022 End: 01-05-2022 Orders Only Guillaume Dominguez MD Work Phone: [facility] [place] Comment on above: Elevated ferritin (P rimary Dx) Pernicious anemia (P rimary Dx) Start: 12-17-2021 End: 12-17-2021 Patient encounter procedure Sasha Hurley SOLE TIER.WOOD BOAT BUILDER SUPERVISOR Work Phone: [facility] Comment on above: Acute UTI (Primary D x); Urinary frequency; Glucosuria Start: 12-15-2021 Telephone encounter Guillaume ventura MD Work Phone: [facility] [place] Comment on above: urine symptoms Start: 12-05-2021 Orders Only Gamaliel madrid MD Work Phone: Cardiology Start: 12-04-2021 Telephone encounter Gamaliel marcial MD Work Phone: Cardiology Comment on above: Patient Update Start: 11-03-2021 End: 11-03-2021 Nursing evaluation of patient and report Mi Nurse Work Phone: [facility] Comment on above: Pernicious anemia (P rimary [...] Guillaume abarca MD Work Phone: Internal [facility] [place] Comment on above: Refill Request Start: 10-07-2021 Telephone encounter Moraima allen MD Work Phone: Pain Management Comment on above: Appointment Start: 10-06-2021 Telephone encounter Tomer Soto MD Work Phone: Family [facility] Comment on above: Results Start: 10-03-2021 End: 10-03-2021 Subsequent hospital visit by physician La[facility] [place] Work Phone: Radiology Comment on above: Shortness of breath on exertion [R06.02] Start: 10-03-2021 End: 10-03-2021 Patient encounter procedure Iban Soto MD Work Phone: [facility] [place] Comment on above: Irregular heart beat (Primary Dx); Shortness of breath on exertion; Fatigue, unspecified type; Skin tear of left forearm without complication, initial encounter; Lightheadedness Start: 09-29-2021 Telephone encounter Guillaume ventura MD Work Phone: [facility] [place] Comment on above: Results Start: 09-22-2021 Refill Curtis allen MD Work Phone: [facility] Comment on above: Refill Request Start: 09-01-2021 End: 09-01-2021 Nursing evaluation of patient and report Mi Nurse Work Phone: [facility] Comment on above: Pernicious anemia (P rimary Dx) Start: 08-22-2021 End: 08-22-2021 Patient encounter procedure Curtis Nassar MD Work Phone: [facility] Comment on above: H/O gastric bypass ( Primary Dx); DM (diabetes mellitus), type 2 with neurological complications (HCC); Radiculopathy of thoracic region Start: 10-03-2018 End: 10-03-2018 Patient encounter procedure [facility] Start: 09-08-2017 End: 09-08-2017 [facility] Facility:[facility] [...] Comment: Speci men Type: BLOOD SPECIMENOrdering Facility: [facility] Address: [address] [place] [address] Performed By: #### T SCR ####[facility] BLOOD BANKCLIA [id number] [address] OF [place] Start: 05-05-2024 Computed tomography of [...] 07-21-2023 Digital breast tomosynthesis unilateral Josefa Flynn SOLE TIER.WOOD BOAT BUILDER SUPERVISOR Work Phone: Start: 06-12-2023 Plain X-ray of femur Start: 06-12-2023 CT of head without contrast Start: 06-12-2023 Pelvis X-ray Start: 05-14-2023 mimoOn COVI D-19 VACCINE (2022- SEASON) AGE 12+ YR Guillaume Dominguez MD Work Phone: Start: 02-26-2023 Plain x-ray of pelvi s and lower extremity Start: 02-26-2023 CT of head without contrast Start: 02-02-2023 INFLUENZA VACCINE, P RSV FREE, AGE 65+ YR, HIGH DOSE, QUADRIVALENT (FLUZONE HIGH-DOSE) Josefa Caputo SOLE TIER.WOOD BOAT BUILDER SUPERVISOR Work Phone: Start: 01-28-2023 Myocardial spect mul tiple studies Myakel Kayleigh Whitfield DO Work Phone: Start: 01-11-2023 Ecg [...] Radex fingr minimum 2 views Janae Sandoval SOLE TIER.[facility] Work Phone: Start: 04-28-2022 Brncdilat rspse spmt [...] BOOSTER VACCINE, AGE 12+ YR Comfort Patterson APRN.CUSTOMER INSIGHT ANALYST Work Phone: Start: 02-28-2022 Computed tomography of [...] Estimated Glomerular Filtration Rate [facility] Start: 05-09-2025 End: 05-09-2025 Patient encounter procedure 05/09/2025 2:00 PM EST Office Visit Internal [facility] [place] [address] [place] [address] Guillaume Dominguez MD [address] [place] [address] 6 month follow up [facility] [place] Comment on above: 6 month follow up Start: 01-29-2025 Influenza [facility] Start: 12-02-2024 Glaucoma screening Dilated Retinal Exam [facility] Start: 11-08-2024 End: 11-08-2024 Patient encounter procedure 11/08/2024 10:40 AM EDT Office Visit [facility] [place] [address] [facility] [place], [place] [address] Guillaume Dominguez MD [address] [place] [address] 6 month follow up [facility] [place] Comment on above: 6 month follow up Start: 09-27-2024 Glaucoma screening Dilated Retinal Exam [facility] Start: 08-26-2024 Hepatitis B surface antibody level LDL Cholesterol [facility] Start: 08-03-2024 End: 08-03-2024 Patient encounter procedure 08/03/2024 1:45 PM EST Appointment RADIO CT SCAN [place] CUSTOMER INSIGHT ANALYST [address] [facility] [address] CT BRAIN WO RADIO CT SCAN [place] CUSTOMER INSIGHT ANALYST Comment on above: CT BRAIN WO Start: 08-03-2024 End: 08-03-2024 Patient encounter procedure Geriatrics Comment on above: Mild cognitive impairment [G31.84] [address] today Start: 08-01-2024 End: 08-01-2025 CT Head WO contrast CT head wo IV contrast Imaging Routine Nontraumatic intracranial hemorrhage, unspecified (HCC) Expected: 08/01/2024, Expires: 08/01/2025 [facility] Work Phone: Comment on above: Expected: 08/01/2024, Expires: Start: 07-13-2024 End: 07-13-2024 Patient encounter procedure RADIO CT SCAN [place] CUSTOMER INSIGHT ANALYST Comment on above: brain wo [address] today CT BRAIN WO Start: 06-20-2024 End: 06-20-2024 Patient encounter procedure 06/20/2024 9:00 AM EST Office Visit Urology [address] [address] Maykel Patel Jr., MD [address] [place] [address] 1 year follow up Urology Comment on above: 1 year follow up Start: 05-31-2024 Advance Directive Discussion Advance Directive Discussion [facility] Start: 05-31-2024 Medicare Advantage Annual Wellness Visit Medicare Advantage Annual Wellness Visit [facility] Start: 05-18-2024 Diabetes: Urine Albumin-Creatinine Ratio for Kidney Health Diabetes: Urine Albumin-Creatinine Ratio for Kidney Health [facility] Start: 05-18-2024 Hepatitis B screening Urine Albumin:Creatinine Ratio [facility] Start: 05-18-2024 Hepatitis B surface antibody level LDL Cholesterol [facility] Start: 05-06-2024 End: 05-06-2024 Optx fem shft fx w/plate/screws w/wo cerclage ORIF FEMUR WITH PLATING Periprosthetic fracture of shaft of femur 05/06/2024 3:50 PM EST [place] Start: 05-06-2024 End: 05-06-2024 Craniectomy hmtma supratentorial extra/subdural CRANIOTOMY FOR EVACUATION OF SUPRATENTORIAL SUBDURAL HEMATOMA Subdural hematoma (HCC) 05/06/2024 8:00 AM EST [place] Start: 05-06-2024 [facility] Start: 05-06-2024 Aspiration precautions [facility] Start: 05-05-2024 End: 05-05-2024 Follow-up encounter 05/05/2024 10:00 AM EST [facility] [place] [address] [place] [phone] Adina Lay APRN.WOOD BOAT BUILDER SUPERVISOR [address] [place] [address] 6 month follow up [facility] [place] Comment on above: 6 month follow up Start: 05-05-2024 End: 05-05-2024 Patient encounter procedure 05/05/2024 10:00 AM EST Office Visit [facility] [place] [address] [place] [phone] Adina Lay APRN.WOOD BOAT BUILDER SUPERVISOR [address] [place] [address] 6 month follow up [facility] [place] Comment on above: 6 month follow up Start: 04-28-2024 End: 04-28-2024 Patient encounter procedure 04/28/2024 4:00 PM EST Office Visit Internal Medicine [place] [address] [place] [address] Guillaume Dominguez MD [address] [place] [address] 6 month follow up [facility] [place] Comment on above: 6 month follow up Start: 03-30-2024 End: 03-30-2024 Admission to same day surgery center 03/30/2024 1:30 PM EDT - 03/30/2024 1:55 PM EDT Surgery [facility] [address] [place] [address] Moraima Montelongo MD [address] [facility] [place] [address] INJECTION(S) ANESTHETIC AGENT AND STEROID TRANSFORAMINAL EPIDURAL LUMBAR W/IMAGE GUIDANCE FLUORO OR CT [facility] Comment on above: INJECTION(S) ANESTHETIC [...] physician 03/30/2024 1:30 PM EDT Hospital Encounter [facility] [address] [place] [address] Moraima Montelongo MD [address] [facility] [place] [address] Lumbar spondylosis [M47.816], Spondylolisthesis of lumbar region [M43.16], Radiculopathy, lumbar region [M54.16] [facility] Comment on above: Lumbar spondylosis [M47.816], Spondyloli sthesis of lumbar region [M43.16], Radiculopathy, lumbar region [M54.16] Start: 03-30-2024 End: 03-30-2024 Admission to same day surgery center 03/30/2024 7:53 AM EDT - 03/30/2024 8:18 AM EDT Surgery [facility] [address] [place] [address] Moraima Montelongo MD [address] [facility] [place] [address] INJECTION(S) ANESTHETIC AGENT AND STEROID TRANSFORAMINAL EPIDURAL LUMBAR W/IMAGE GUIDANCE FLUORO OR CT [facility] Comment on above: INJECTION(S) ANESTHETIC [...] physician 03/30/2024 7:53 AM EDT Hospital Encounter [facility] [address] [place] [address] Moraima Montelongo MD [address] [facility] [place] [address] Lumbar spondylosis [M47.816], Spondylolisthesis of lumbar region [M43.16], Radiculopathy, lumbar region [M54.16] [facility] Comment on above: Lumbar spondylosis [M47.816], Spondyloli sthesis of lumbar region [M43.16], Radiculopathy, lumbar region [M54.16] Start: 03-09-2024 End: 03-09-2024 Patient encounter procedure 03/09/2024 10:00 AM EDT Office Visit Dermatology [address] [address] Radha Walters MD [address] [place] [address] follow up Dermatology Comment on above: follow up Start: 02-27-2024 Hemoglobin A1c measurement HbA1C [facility] Start: 02-15-2024 End: 02-15-2024 Patient encounter procedure 02/15/2024 9:15 AM EDT Office Visit Urology [address] [place] [address] Maykel Patel Jr., MD [address] [place], [place] [id number] 1 year follow up Urology Comment on above: 1 year follow up Start: 02-11-2024 End: 02-11-2024 Patient encounter procedure 02/11/2024 11:00 AM EDT Office Visit [facility] [place] [address] [place] [phone] Josefa Caputo APRN.WOOD BOAT BUILDER SUPERVISOR [address] [place] [phone] 3 month follow up [facility] [place] Comment on above: 3 month follow up Start: 02-08-2024 End: 02-08-2024 Patient encounter procedure 02/08/2024 1:40 PM EDT Office Visit [facility] [place] [address] [place], [place] [phone] Damaris Knott MD [address] [place], [place] [phone] srinivas consult with Dr. Knott per pcp [facility] [place] Comment on above: srinivas consult with Dr. Knott per pcp Start: 02-03-2024 ANNUAL PCP TEAM CHRONIC DISEASE VISIT ANNUAL PCP TEAM CHRONIC DISEASE VISIT [facility] Start: 02-03-2024 BP CONTROLLED (<130/80) BP CONTROLLED (<130/80) [facility] Start: 01-30-2024 COVID-19 Vaccine () COVID-19 Vaccine () [facility] Start: 01-30-2024 Covid-19 Vaccine ( season) Covid-19 Vaccine () [facility] Start: 01-30-2024 Influenza vaccination Influenza Vaccine (#1) [facility] Start: 01-26-2024 End: 01-26-2024 Patient encounter procedure [facility] [place] Comment on above: Nurse Visit srinivas consult with Dr Dara Knott per pcp Start: 01-12-2024 BP CONTROLLED (<130/80) BP CONTROLLED (<130/80) [facility] Start: 01-10-2024 End: 04-10-2024 Urinalysis complete panel - Urine URINALYSIS WITH MICROSCOPIC, REFLEX CULTURE Lab Routine UTI symptoms Expected: 01/10/2024, Expires: 04/10/2024 [facility] Comment on above: Expected: 01/10/2024, Expires: 4 Start: 12-11-2023 End: 03-11-2024 25-hydroxyvitamin D3 [Mass/volume] in Serum or Plasma VITAMIN D 25 HYDROXY Lab Routine Vitamin D deficiency History of Jordin-en-Y gastric bypass Encounter for long-term current use of medication Expected: 12/11/2023, Expires: 03/11/2024 [facility] Comment on above: Expected: 12/11/2023, Expires: 4 Start: 12-11-2023 End: 03-11-2024 CBC panel - Blood by Automated count COMPLETE BLOOD COUNT Lab Routine History of Jordin-en-Y gastric bypass Iron deficiency Encounter for long-term current use of medication Expected: 12/11/2023, Expires: 03/11/2024 [facility] Comment on above: Expected: 12/11/2023, Expires: 4 Start: 12-11-2023 End: 03-11-2024 Cobalamin (Vitamin B12) [Mass/volume] in Serum or Plasma VITAMIN B12 Lab Routine Vitamin B12 deficiency History of Jordin-en-Y gastric bypass Encounter for long-term current use of medication Expected: 12/11/2023, Expires: 03/11/2024 [facility] Comment on above: Expected: 12/11/2023, Expires: Start: 12-11-2023 End: 03-11-2024 Comprehensive metabolic 2000 panel - Serum or Plasma COMPREHENSIVE METABOLIC PANEL Lab Routine 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 Encounter for long-term current use of medication Expected: 12/11/2023, Expires: 03/11/2024 [facility] Comment on above: Expected: 12/11/2023, Expires: Start: 12-11-2023 End: 03-11-2024 Ferritin [Mass/volume] in Serum or Plasma FERRITIN Lab Routine History of Jordin-en-Y gastric bypass Iron deficiency Encounter for long-term current use of medication Expected: 12/11/2023, Expires: 03/11/2024 [facility] Comment on above: Expected: 12/11/2023, Expires: Start: 12-11-2023 End: 03-11-2024 Folate [Mass/volume] in Serum or Plasma FOLATE, SERUM Lab Routine History of Jordin-en-Y gastric bypass Encounter for long-term current use of medication Expected: 12/11/2023, Expires: 03/11/2024 [facility] Comment on above: Expected: 12/11/2023, Expires: Start: 12-11-2023 End: 03-11-2024 Hemoglobin A1c in Blood HEMOGLOBIN A1C Lab Routine 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 Encounter for long-term current use of medication Expected: 12/11/2023, Expires: 03/11/2024 [facility] Work Phone: Comment on above: Expected: 12/11/2023, Expires: Start: 12-11-2023 End: 03-11-2024 Iron and Iron binding capacity panel - Serum or Plasma IRON AND TIBC Lab Routine History of Jordin-en-Y gastric bypass Iron deficiency Encounter for long-term current use of medication Expected: 12/11/2023, Expires: 03/11/2024 [facility] Comment on above: Expected: 12/11/2023, Expires: Start: 12-11-2023 End: 03-11-2024 Lipid 1996 panel - Serum or Plasma LIPID PANEL BASIC Lab Routine Mixed hyperlipidemia History of Jordin-en-Y gastric bypass Encounter for long-term current use of medication Expected: 12/11/2023, Expires: 03/11/2024 [facility] Comment on above: Expected: 12/11/2023, Expires: Start: 12-11-2023 End: 03-11-2024 LIPID PANEL, NONFASTING LIPID PANEL, NONFASTING Lab Routine Mixed hyperlipidemia History of Jordin-en-Y gastric bypass Encounter for long-term current use of medication Expected: 12/11/2023, Expires: 03/11/2024 [facility] Comment on above: Expected: 12/11/2023, Expires: Start: 12-11-2023 End: 03-11-2024 Retinol [Mass/volume] in Serum or Plasma VITAMIN A/RETINOL Lab Routine History of Jordin-en-Y gastric bypass Encounter for long-term current use of medication Expected: 12/11/2023, Expires: 03/11/2024 [facility] Comment on above: Expected: 12/11/2023, Expires: Start: 12-11-2023 End: 03-11-2024 Zinc [Mass/volume] in Serum or Plasma ZINC BLD Lab Routine History of Jordin-en-Y gastric bypass Encounter for long-term current use of medication Expected: 12/11/2023, Expires: 03/11/2024 [facility] Comment on above: Expected: 12/11/2023, Expires: Start: 12-10-2023 End: 12-10-2023 Patient encounter procedure 12/10/2023 3:40 PM EDT Office Visit [facility] [address] [place] [address] Guillaume Dominguez MD [address] [place] [address] 6 month follow up [facility] Comment on above: 6 month follow up Start: 11-28-2023 ANNUAL PCP TEAM CHRONIC DISEASE VISIT ANNUAL PCP TEAM CHRONIC DISEASE VISIT [facility] Start: 11-28-2023 SHINGRIX VACCINE (2 of 3) SHINGRIX VACCINE (2 of 3) [facility] Comment on above: Postponed from 11/25/2012 (Declined at t his time) Start: 11-28-2023 Urine microalbumin profile [facility] Comment on above: Postponed from 10/10/2016 (Declined at t his time) Start: 11-25-2023 End: 11-25-2023 Follow-up encounter 11/25/2023 9:00 AM EDT [facility] [address] [address] Radha Walters MD [address] [place] [address] 4 MONTH FOLLOW UP Dermatology Comment on above: 4 MONTH FOLLOW UP Start: 11-11-2023 End: 11-11-2023 Patient encounter procedure 11/11/2023 10:00 AM EDT Office Visit Dermatology [address] [address] Radha Walters MD [address] [place] [address] 4 MONTH FOLLOW UP Dermatology Comment on above: 4 MONTH FOLLOW UP Start: 11-04-2023 End: 11-04-2023 Nursing evaluation of patient and report 11/04/2023 1:30 PM EDT Nurse Visit Family Medicine [facility] [address] [address] Nurse, Mo [address] [place] [address] B-12 injection [facility] Comment on above: B-12 injection Start: 10-29-2023 End: 10-29-2023 Patient encounter procedure 10/29/2023 3:00 PM EDT Office Visit Endocrinology [place] [address] [place] [address] [place] [address] [facility] [address] [place] [address] 6 month follow up [facility] [place] Comment on above: 6 month follow up Start: 10-28-2023 ANNUAL PCP TEAM CHRONIC DISEASE VISIT ANNUAL PCP TEAM CHRONIC DISEASE VISIT [facility] Start: 10-28-2023 BP CONTROLLED (<130/80) BP CONTROLLED (<130/80) [facility] Start: 10-11-2023 End: 10-11-2023 Patient encounter procedure 10/11/2023 11:20 AM EDT Office Visit Internal [facility] [address] [place], [place] [id number] Comfort Patterson APRN.CUSTOMER INSIGHT ANALYST [address] [place] [address] physical eval- for assisted living [facility] [place] Comment on above: physical eval- for assisted living Start: 10-04-2023 End: 10-04-2023 Nursing evaluation of patient and report 10/04/2023 1:30 PM EDT Nurse Visit Family Medicine [place] [address] [place], [place] [id number] Nurse, Mo [address] [place] [address] B-12 injection [facility] Comment on above: B-12 injection Start: 09-13-2023 Covid-19 Vaccine () Covid-19 Vaccine () [facility] Start: 08-17-2023 End: 11-16-2023 Hemoglobin A1c in Blood HGB A1C Lab Routine Expected: 08/17/2023 (Approximate), Expires: 11/16/2023 [facility] Work Phone: Comment on above: Expected: 08/17/2023 (Approximate), Expi res: 11/16/2023 Start: 08-17-2023 Hemoglobin A1c measurement HbA1C [facility] Start: 08-16-2023 End: 11-15-2023 25-hydroxyvitamin D3 [Mass/volume] in Serum or Plasma VITAMIN D 25 HYDROXY Lab Routine Vitamin D deficiency Expected: 08/16/2023, Expires: 11/15/2023 [facility] Work Phone: Comment on above: Expected: 08/16/2023, Expires: Start: 08-16-2023 ANNUAL PCP TEAM CHRONIC DISEASE VISIT ANNUAL PCP TEAM CHRONIC DISEASE VISIT [facility] Start: 08-16-2023 BP CONTROLLED (<130/80) BP CONTROLLED (<130/80) [facility] Start: 08-16-2023 End: 11-15-2023 CBC W Auto Differential panel - Blood CBC + DIFF Lab Routine Encounter for therapeutic drug monitoring Iron deficiency Expected: 08/16/2023, Expires: 11/15/2023 [facility] Work Phone: Comment on above: Expected: 08/16/2023, Expires: Start: 08-16-2023 End: 11-15-2023 Cobalamin (Vitamin B12) [Mass/volume] in Serum or Plasma VITAMIN B12 BLOOD Lab Routine Vitamin B12 deficiency Iron deficiency Expected: 08/16/2023, Expires: 11/15/2023 [facility] Work Phone: Comment on above: Expected: 08/16/2023, Expires: 4 Start: 08-16-2023 End: 11-15-2023 Comprehensive metabolic 2000 panel - Serum or Plasma COMP METABOLIC PANEL Lab Routine Encounter for therapeutic drug monitoring Expected: 08/16/2023, Expires: 11/15/2023 [facility] Work Phone: Comment on above: Expected: 08/16/2023, Expires: 4 Start: 08-16-2023 End: 11-15-2023 Ferritin [Mass/volume] in Serum or Plasma FERRITIN BLD Lab Routine Iron deficiency Expected: 08/16/2023, Expires: 11/15/2023 [facility] Work Phone: Comment on above: Expected: 08/16/2023, Expires: Start: 08-16-2023 End: 11-15-2023 Iron and Iron binding capacity panel - Serum or Plasma IRON + TIBC Lab Routine Iron deficiency Expected: 08/16/2023, Expires: 11/15/2023 [facility] Work Phone: Comment on above: Expected: 08/16/2023, Expires: 4 Start: 08-16-2023 End: 11-15-2023 LIPID PANEL, NONFASTING LIPID PANEL, NONFASTING Lab Routine Screening, lipid Expected: 08/16/2023, Expires: 11/15/2023 [facility] Work Phone: Comment on above: Expected: 08/16/2023, Expires: Start: 08-16-2023 End: 11-15-2023 Thyrotropin [Units/volume] in Serum or Plasma TSH BLD Lab Routine Screening for thyroid disorder Expected: 08/16/2023, Expires: 11/15/2023 [facility] Work Phone: Comment on above: Expected: 08/16/2023, Expires: Start: 07-07-2023 ANNUAL PCP TEAM CHRONIC DISEASE VISIT ANNUAL PCP TEAM CHRONIC DISEASE VISIT [facility] Start: 07-07-2023 BP CONTROLLED (<130/80) BP CONTROLLED (<130/80) [facility] Start: 07-02-2023 Hemoglobin A1c measurement HbA1C [facility] Start: 07-02-2023 Hemoglobin A1c/Hemoglobin.total in Blood HBA1C [facility] Start: 06-12-2023 [facility] Start: 06-11-2023 BP CONTROLLED (<130/80) BP CONTROLLED (<130/80) [facility] Start: 05-31-2023 Advance Directive Discussion Advance Directive Discussion [facility] Start: 05-31-2023 Behavioral Health Screening Behavioral Health Screening [facility] Start: 05-31-2023 Depression Assessment Depression Assessment [facility] Start: 05-14-2023 End: 08-13-2023 25-hydroxyvitamin D3 [Mass/volume] in Serum or Plasma VITAMIN D 25 HYDROXY Lab Routine Vitamin D deficiency Expected: 05/14/2023, Expires: 08/13/2023 [facility] Work Phone: Comment on above: Expected: 05/14/2023, Expires: 4 Start: 05-12-2023 ANNUAL PCP TEAM CHRONIC DISEASE VISIT ANNUAL PCP TEAM CHRONIC DISEASE VISIT [facility] Start: 05-12-2023 BP CONTROLLED (<130/80) BP CONTROLLED (<130/80) [facility] in Start: 05-06-2023 BP CONTROLLED (<130/80) BP CONTROLLED (<130/80) [facility] Start: 04-30-2023 End: 06-30-2023 ALBUMIN/CREAT RATIO RND UR ALBUMIN/CREAT RATIO RND UR Lab Routine Type 2 diabetes mellitus with peripheral neuropathy (HCC) Expected: 04/30/2023, Expires: 06/30/2023 [facility] Work Phone: Comment on above: Expected: 04/30/2023, Expires: 4 Start: 04-30-2023 End: 06-30-2023 CBC W Auto Differential panel - Blood CBC + DIFF Lab Routine Chronic fatigue Encounter for therapeutic drug monitoring Expected: 04/30/2023, Expires: 06/30/2023 [facility] Work Phone: Comment on above: Expected: 04/30/2023, Expires: 4 Start: 04-30-2023 End: 06-30-2023 Comprehensive metabolic 2000 panel - Serum or Plasma COMP METABOLIC PANEL Lab Routine Chronic fatigue Encounter for therapeutic drug monitoring Expected: 04/30/2023, Expires: 06/30/2023 [facility] Work Phone: Comment on above: Expected: 04/30/2023, Expires: 4 Start: 04-30-2023 End: 06-30-2023 Ferritin [Mass/volume] in Serum or Plasma FERRITIN BLD Lab Routine Chronic fatigue Encounter for therapeutic drug monitoring Expected: 04/30/2023, Expires: 06/30/2023 [facility] Work Phone: Comment on above: Expected: 04/30/2023, Expires: 4 Start: 04-30-2023 End: 06-30-2023 Hemoglobin A1c in Blood HGB A1C Lab Routine Chronic fatigue Encounter for therapeutic drug monitoring Type 2 diabetes mellitus with peripheral neuropathy (HCC) Expected: 04/30/2023, Expires: 06/30/2023 [facility] Work Phone: Comment on above: Expected: 04/30/2023, Expires: 4 Start: 04-30-2023 End: 06-30-2023 Iron and Iron binding capacity panel - Serum or Plasma IRON + TIBC Lab Routine Chronic fatigue Encounter for therapeutic drug monitoring Expected: 04/30/2023, Expires: 06/30/2023 [facility] Work Phone: Comment on above: Expected: 04/30/2023, Expires: 4 Start: 04-30-2023 End: 06-30-2023 Lipid 1996 panel - Serum or Plasma LIPID PANEL BASIC Lab Routine Mixed hyperlipidemia Expected: 04/30/2023, Expires: 06/30/2023 [facility] Work Phone: Comment on above: Expected: 04/30/2023, Expires: 4 Start: 04-27-2023 ANNUAL PCP TEAM CHRONIC DISEASE VISIT ANNUAL PCP TEAM CHRONIC DISEASE VISIT [facility] Start: 02-10-2023 ANNUAL PCP TEAM CHRONIC DISEASE VISIT ANNUAL PCP TEAM CHRONIC DISEASE VISIT [facility] Start: 01-29-2023 Covid-19 Vaccine ( season) Covid-19 Vaccine ( season) [facility] Start: 01-29-2023 Influenza vaccination INFLUENZA (#1) [facility] Start: 01-16-2023 Hepatitis B screening URINE ALBUMIN:CREATININE RATIO [facility] Start: 12-08-2022 Hemoglobin A1c/Hemoglobin.total in Blood HBA1C [facility] Start: 10-25-2022 Hemoglobin A1c/Hemoglobin.total in Blood HBA1C [facility] Start: 10-03-2022 ANNUAL PCP TEAM CHRONIC DISEASE VISIT ANNUAL PCP TEAM CHRONIC DISEASE VISIT [facility] Start: 09-09-2022 End: 07-11-2023 XR ABDOMEN 1V SUPINE XR ABDOMEN 1V SUPINE Radiology Routine Kidney stone Expected: 09/09/2022, Expires: 07/11/2023 [facility] Work Phone: Comment on above: Expected: 09/09/2022, Expires: 4 Start: 08-25-2022 ANNUAL PCP TEAM CHRONIC DISEASE VISIT ANNUAL PCP TEAM CHRONIC DISEASE VISIT [facility] Start: 08-21-2022 Hepatitis B screening URINE ALBUMIN:CREATININE RATIO [facility] Start: 08-15-2022 End: 10-15-2022 25-hydroxyvitamin D3 [Mass/volume] in Serum or Plasma VITAMIN D 25 HYDROXY Lab Routine Vitamin D deficiency Expected: 08/15/2022, Expires: 10/15/2022 [facility] Work Phone: Comment on above: Expected: 08/15/2022, Expires: 3 Start: 08-15-2022 End: 10-15-2022 CBC panel - Blood by Automated count CBC Lab Routine Irregular heart rhythm Dietary iron deficiency without anemia Expected: 08/15/2022, Expires: 10/15/2022 [facility] Work Phone: Comment on above: Expected: 08/15/2022, Expires: 3 Start: 08-15-2022 End: 10-15-2022 Cobalamin (Vitamin B12) [Mass/volume] in Serum or Plasma VITAMIN B12 BLOOD Lab Routine B12 deficiency Other fatigue Expected: 08/15/2022, Expires: 10/15/2022 [facility] Work Phone: Comment on above: Expected: 08/15/2022, Expires: 3 Start: 08-15-2022 End: 10-15-2022 Comprehensive metabolic 2000 panel - Serum or Plasma COMP METABOLIC PANEL Lab Routine Irregular heart rhythm Expected: 08/15/2022, Expires: 10/15/2022 [facility] Work Phone: Comment on above: Expected: 08/15/2022, Expires: 3 Start: 08-15-2022 End: 10-15-2022 Ferritin [Mass/volume] in Serum or Plasma FERRITIN BLD Lab Routine Elevated ferritin Other fatigue Expected: 08/15/2022, Expires: 10/15/2022 [facility] Work Phone: Comment on above: Expected: 08/15/2022, Expires: 3 Start: 08-15-2022 End: 10-15-2022 Folate [Mass/volume] in Serum or Plasma FOLATE SERUM Lab Routine Other fatigue Expected: 08/15/2022, Expires: 10/15/2022 [facility] Work Phone: Comment on above: Expected: 08/15/2022, Expires: 3 Start: 08-15-2022 End: 10-15-2022 Hemoglobin A1c in Blood HGB A1C Lab Routine Irregular heart rhythm Expected: 08/15/2022, Expires: 10/15/2022 [facility] Work Phone: Comment on above: Expected: 08/15/2022, Expires: Start: 08-15-2022 End: 10-15-2022 Iron and Iron binding capacity panel - Serum or Plasma IRON + TIBC Lab Routine Other fatigue Expected: 08/15/2022, Expires: 10/15/2022 [facility] Work Phone: Comment on above: Expected: 08/15/2022, Expires: Start: 08-15-2022 End: 10-15-2022 Magnesium [Mass/volume] in Serum or Plasma MAGNESIUM BLD Lab Routine Irregular heart rhythm Expected: 08/15/2022, Expires: 10/15/2022 [facility] Work Phone: Comment on above: Expected: 08/15/2022, Expires: 3 Start: 08-15-2022 End: 10-15-2022 Methylmalonate [Moles/volume] in Serum or Plasma METHYLMALONIC ACID Lab Routine B12 deficiency Expected: 08/15/2022, Expires: 10/15/2022 [facility] Work Phone: Comment on above: Expected: 08/15/2022, Expires: 3 Start: 08-15-2022 End: 10-15-2022 Thyrotropin [Units/volume] in Serum or Plasma TSH BLD Lab Routine Irregular heart rhythm Expected: 08/15/2022, Expires: 10/15/2022 [facility] Work Phone: Comment on above: Expected: 08/15/2022, Expires: 3 Start: 08-15-2022 End: 10-15-2022 Thyroxine (T4) free [Mass/volume] in Serum or Plasma T4 FREE/FREE THYROX Lab Routine Irregular heart rhythm Expected: 08/15/2022, Expires: 10/15/2022 [facility] Work Phone: Comment on above: Expected: 08/15/2022, Expires: 3 Start: 08-15-2022 End: 10-15-2022 Triiodothyronine (T3) Free [Mass/volume] in Serum or Plasma T3 FREE BLD Lab Routine Irregular heart rhythm Expected: 08/15/2022, Expires: 10/15/2022 [facility] Work Phone: Comment on above: Expected: 08/15/2022, Expires: 3 Start: 07-19-2022 Hemoglobin A1c/Hemoglobin.total in Blood HBA1C [facility] Start: 07-03-2022 COVID-19 VACCINE (5 - Pfizer series) COVID-19 VACCINE (5 - Pfizer series) [facility] Start: 06-18-2022 End: 08-18-2022 Bacteria identified in Urine by Culture [facility] Work Phone: Comment on above: Expected: 06/18/2022, Expires: 3 Start: 05-31-2022 ADVANCE DIRECTIVE DISCUSSION ADVANCE DIRECTIVE DISCUSSION [facility] Start: 05-31-2022 DEPRESSION ASSESSMENT DEPRESSION ASSESSMENT [facility] Start: 04-27-2022 End: 06-27-2022 Cobalamin (Vitamin B12) [Mass/volume] in Serum or Plasma [facility] Work Phone: Comment on above: Expected: 04/27/2022, Expires: 3 Start: 04-27-2022 End: 06-27-2022 Comprehensive metabolic 2000 panel - Serum or Plasma [facility] Work Phone: Comment on above: Expected: 04/27/2022, Expires: 3 Start: 04-27-2022 End: 06-27-2022 Ferritin [Mass/volume] in Serum or Plasma [facility] Work Phone: Comment on above: Expected: 04/27/2022, Expires: 3 Start: 04-27-2022 End: 06-27-2022 Folate [Mass/volume] in Serum or Plasma [facility] Work Phone: Comment on above: Expected: 04/27/2022, Expires: 3 Start: 04-27-2022 End: 06-27-2022 Hemoglobin A1c in Blood [facility] Work Phone: Comment on above: Expected: 04/27/2022, Expires: 3 Start: 04-27-2022 End: 06-27-2022 Iron and Iron binding capacity panel - Serum or Plasma [facility] Work Phone: Comment on above: Expected: 04/27/2022, Expires: 3 Start: 03-30-2022 End: 05-30-2022 CBC W Auto Differential panel - Blood CBC + DIFF Lab Routine Iron deficiency Expected: 03/30/2022 (Approximate), Expires: 05/30/2022 [facility] Work Phone: Comment on above: Expected: 03/30/2022 (Approximate), Expi res: 05/30/2022 Start: 03-30-2022 End: 05-30-2022 Ferritin [Mass/volume] in Serum or Plasma FERRITIN BLD Lab Routine Iron deficiency Expected: 03/30/2022 (Approximate), Expires: 05/30/2022 [facility] Work Phone: Comment on above: Expected: 03/30/2022 (Approximate), Expi res: 05/30/2022 Start: 03-30-2022 End: 05-30-2022 Iron and Iron binding capacity panel - Serum or Plasma IRON + TIBC Lab Routine Iron deficiency Expected: 03/30/2022 (Approximate), Expires: 05/30/2022 [facility] Work Phone: Comment on above: Expected: 03/30/2022 (Approximate), Expi res: 05/30/2022 Start: 02-21-2022 Hemoglobin A1c/Hemoglobin.total in Blood HBA1C [facility] Start: 02-21-2022 Simple repair scalp/neck/ax/genit/trunk 2.5cm/< RPR S/N/AX/GEN/TRNK 2.5CM/< [facility] Work Phone: Start: 02-10-2022 Adult depression screening assessment DEPRESSION SCREENING [facility] Start: 02-10-2022 ANNUAL PCP TEAM CHRONIC DISEASE VISIT ANNUAL PCP TEAM CHRONIC DISEASE VISIT [facility] Start: 01-29-2022 Influenza vaccination INFLUENZA (#1) [facility] Start: 01-19-2022 End: 03-21-2022 Thyrotropin [Units/volume] in Serum or Plasma TSH BLD Lab Routine Fatigue, unspecified type Expected: 01/19/2022, Expires: 03/21/2022 [facility] Work Phone: Comment on above: Expected: 01/19/2022, Expires: 2 Start: 01-05-2022 End: 03-07-2022 Ferritin [Mass/volume] in Serum or Plasma FERRITIN BLD Lab Routine Elevated ferritin Expected: 01/05/2022, Expires: 03/07/2022 [facility] Work Phone: Comment on above: Expected: 01/05/2022, Expires: 2 Start: 01-05-2022 End: 03-07-2022 Iron and Iron binding capacity panel - Serum or Plasma IRON + TIBC Lab Routine Elevated ferritin Expected: 01/05/2022, Expires: 03/07/2022 [facility] Work Phone: Comment on above: Expected: 01/05/2022, Expires: 2 Start: 10-28-2021 End: 10-06-2022 CBC W Auto Differential panel - Blood CBC + DIFF Lab Routine Fatigue, unspecified type Elevated ferritin Expected: 10/28/2021 (Approximate), Expires: 10/06/2022 [facility] Work Phone: Comment on above: Expected: 10/28/2021 (Approximate), Expi res: 10/06/2022 Start: 10-28-2021 End: 10-06-2022 Comprehensive metabolic 2000 panel - Serum or Plasma COMP METABOLIC PANEL Lab Routine Fatigue, unspecified type Elevated ferritin Expected: 10/28/2021 (Approximate), Expires: 10/06/2022 [facility] Work Phone: Comment on above: Expected: 10/28/2021 (Approximate), Expi res: 10/06/2022 Start: 10-28-2021 End: 10-06-2022 Echocardiography ECHO Cardiology Routine Shortness of breath on exertion Irregular heart beat Fatigue, unspecified type Expected: 10/28/2021 (Approximate), Expires: 10/06/2022 [facility] Work Phone: Comment on above: Expected: 10/28/2021 (Approximate), Expi res: 10/06/2022 Start: 10-28-2021 End: 10-06-2022 FERRITIN BLD FERRITIN BLD Lab Routine Fatigue, unspecified type Elevated ferritin Expected: 10/28/2021 (Approximate), Expires: 10/06/2022 [facility] Work Phone: Comment on above: Expected: 10/28/2021 (Approximate), Expi res: 10/06/2022 Start: 10-10-2021 Hepatitis B surface antibody level LDL CHOLESTEROL [facility] Start: 08-12-2021 COVID-19 VACCINE (4 - Booster for Pfizer series) COVID-19 VACCINE (4 - Booster for Pfizer series) [facility] Start: 07-29-2021 Glaucoma screening Dilated Retinal Exam [facility] Start: 07-29-2021 Hepatitis C antibody, confirmatory test DILATED RETINAL EXAM [facility] Start: 06-09-2021 COVID-19 VACCINE (4 - Booster for Pfizer series) COVID-19 VACCINE (4 - Booster for Pfizer series) [facility] Start: 05-31-2021 ADVANCE DIRECTIVE DISCUSSION ADVANCE DIRECTIVE DISCUSSION [facility] Start: 05-31-2021 DEPRESSION ASSESSMENT DEPRESSION ASSESSMENT [facility] Start: 2017 RSV Immunization for Adults (1 - 1-dose 75+ series) RSV Immunization for Adults (1 - 1-dose 75+ series) [facility] Start: 2017 RSV Vaccine (1 - 1-dose 75+ series) RSV Vaccine (1 - 1-dose 75+ series) [facility] Start: 10-10-2016 DTaP/Tdap/Td Vaccines (1 - Tdap) DTaP/Tdap/Td Vaccines (1 - Tdap) [facility] Start: 10-10-2016 Urine microalbumin profile [facility] Start: 09-23-2016 3 comp foot exam completed DIABETIC FOOT EXAM [facility] Start: 09-23-2016 Diabetic foot examination Diabetic Foot Exam [facility] Start: 11-25-2012 SHINGRIX VACCINE (2 of 3) SHINGRIX VACCINE (2 of 3) [facility] Start: 11-25-2012 Zoster Vaccines (2 of 3) Zoster Vaccines (2 of 3) [facility] Start: 2002 Hepatitis B Vaccine (1 of 3 - Risk 3-dose series) Hepatitis B Vaccine (1 of 3 - Risk 3-dose series) [facility] Start: 2002 RSV Vaccine (1 - 1-dose 60+ series) RSV Vaccine (1 - 1-dose 60+ series) [facility] Start: 02-08-1960 BP CONTROLLED (<130/80) BP CONTROLLED (<130/80) [facility] Start: 02-08-1960 Depression Screening Depression Screening [facility] Start: 1954 Depression Screening Depression Screening [facility] Start: 02-08-1946 PNEUMOCOCCAL: 65+ (1 - PCV) PNEUMOCOCCAL: 65+ (1 - PCV) [facility] Bacteria identified in Urine by Culture URINE CULTURE Microbiology Routine Urinary frequency Ordered: 12/17/2021 [facility] Work Phone: Comment on above: Ordered: 12/17/2021 Bacteria identified in Urine by Culture URINE CULTURE Microbiology Routine UTI symptoms Ordered: 01/10/2024 [facility] Comment on above: Ordered: 01/10/2024 Bilirubin measuremen t, urine [facility] Work Phone: End: 08-31-2025 CT Head WO contrast CT BRAIN WO IVCON Radiology STAT Intracranial hemorrhage (HCC) 1 Occurrences starting 08/01/2024 until 08/31/2025 [facility] Work Phone: Comment on above: 1 Occurrences starting 08/01/2024 until 08/31/2025 Dstrj neurolytic age nt other peripheral nerve NRV DESTR RFA, CHEM OTHER Procedures Routine Chronic left SI joint pain Ordered: 03/11/2022 [facility] Work Phone: Comment on above: Ordered: 03/11/2022 End: 10-03-2022 ECG COMPLETE ECG COMPLETE ECG Routine Irregular heart beat 1 Occurrences starting 10/03/2021 until 10/03/2022 [facility] Work Phone: Comment on above: 1 Occurrences starting 10/03/2021 until 10/03/2022 End: 11-02-2022 ECG COMPLETE ECG COMPLETE ECG Routine Dyspnea on exertion 1 Occurrences starting 11/02/2021 until 11/02/2022 [facility] Work Phone: Comment on above: 1 Occurrences starting 11/02/2021 until 11/02/2022 End: 04-27-2023 ECG COMPLETE ECG COMPLETE ECG Routine Irregular heart rhythm 1 Occurrences starting 04/27/2022 until 04/27/2023 [facility] Work Phone: Comment on above: 1 Occurrences starting 04/27/2022 until 04/27/2023 End: 08-16-2023 ECG COMPLETE ECG COMPLETE ECG Routine Irregular heart rhythm FIELD (dyspnea on exertion) 1 Occurrences starting 08/15/2022 until 08/16/2023 [facility] Work Phone: Comment on above: 1 Occurrences starting 08/15/2022 until 08/16/2023 ECG COMPLETE ECG COMPLETE ECG 01/11/2023 8:40 AM EDT [facility] End: 01-12-2024 Echocardiography ECHO Cardiology Routine Irregular heart rhythm FIELD (dyspnea on exertion) Premature atrial complexes PAC (premature atrial contraction) Mixed hyperlipidemia Carotid artery stenosis without cerebral infarction, bilateral Type 2 diabetes mellitus with peripheral neuropathy (HCC) Atypical chest pain 1 Occurrences starting 01/11/2023 until 01/12/2024 [facility] Work Phone: Comment on above: 1 Occurrences starting 01/11/2023 until 01/12/2024 Glucose [Mass/volume ] in Serum or Plasma GLUCOSE, BLOOD (POC) Lab Routine Glucosuria Ordered: 12/17/2021 [facility] [facility] Work Phone: Comment on above: Ordered: 12/17/2021 Hemoglobin [Presence ] in Urine [facility] Work Phone: End: 05-27-2023 LUNG VOLUMES LUNG VOLUMES PFT Routine FIELD (dyspnea on exertion) Chronic cough 1 Occurrences starting 04/27/2022 until 05/27/2023 [facility] Work Phone: Comment on above: 1 Occurrences starting 04/27/2022 until 05/27/2023 LUNG VOLUMES LUNG VOLUMES PFT Routine FIELD (dyspnea on exertion) Chronic cough 04/28/2022 9:46 AM EST [facility] Work Phone: End: 08-05-2024 ARTIS DIAGNOSTIC RIGHT ARTIS DIAGNOSTIC RIGHT Radiology Routine Abnormal mammogram 1 Occurrences starting 07/07/2023 until 08/05/2024 [facility] Work Phone: Comment on above: 1 Occurrences starting 07/07/2023 until 08/05/2024 End: 06-12-2024 ARTIS SCREENING ARTIS SCREENING Radiology Routine Breast cancer screening by mammogram 1 Occurrences starting 05/14/2023 until 06/12/2024 [facility] Work Phone: Comment on above: 1 Occurrences starting 05/14/2023 until 06/12/2024 Measurement of keton es in urine using dipstick [facility] Work Phone: Microorganism identi fied in Unspecified specimen by Culture FUNGAL CULT + SMEAR Microbiology Routine Lichen sclerosus et atrophicus Pruritus 03/04/2022 3:36 PM EDT [facility] Work Phone: Microscopic urinalysis [facility] Work Phone: Njx anes&/strd w/img tfrml edrl lmbr/sac 1 lvl INJ TRANSFORAMINAL EPID ANES/STER LS SINGL Procedures Routine Spinal stenosis of lumbar region, unspecified whether neurogenic claudication present Radiculopathy, lumbar region 1 Occurrences starting 09/14/2022 [facility] Work Phone: Comment on above: 1 Occurrences starting 09/14/2022 Njx anes&/strd w/img tfrml edrl lmbr/sac 1 lvl INJ TRANSFORAMINAL EPID ANES/STER LS SINGL Procedures Routine Lumbar spondylosis Radiculopathy, lumbar region Ordered: 03/10/2024 [facility] Work Phone: Comment on above: Ordered: 03/10/2024 End: 02-10-2024 NM CARDIAC PERF STRESS/PHARM NM CARDIAC PERF STRESS/PHARM Radiology Routine Irregular heart rhythm FIELD (dyspnea on exertion) Premature atrial complexes PAC (premature atrial contraction) Mixed hyperlipidemia Carotid artery stenosis without cerebral infarction, bilateral Type 2 diabetes mellitus with peripheral neuropathy (HCC) Atypical chest pain 1 Occurrences starting 01/11/2023 until 02/10/2024 [facility] Work Phone: Comment on above: 1 Occurrences starting 01/11/2023 until 02/10/2024 OUTSIDE VENDOR CARDI AC OUTPATIENT EXTENDED RHYTHM RECORDING (WITHOUT TELEMETRY) OUTSIDE VENDOR CARDIAC OUTPATIENT EXTENDED RHYTHM RECORDING (WITHOUT TELEMETRY) Holter Routine Dyspnea on exertion Ordered: 11/03/2021 [facility] Work Phone: Comment on above: Ordered: 11/03/2021 Patient Education [facility] Work Phone: Patient referral [facility] Work Phone: pH of Urine [facility] Work Phone: PT PLAN OF CARE CERTIFICATION PT PLAN OF CARE CERTIFICATION Procedures Routine Spinal stenosis of lumbar region, unspecified whether neurogenic claudication present Lumbar spondylosis Radiculopathy, lumbar region Spondylolisthesis of lumbar region Ordered: 08/19/2022 [facility] Work Phone: Comment on above: Ordered: 08/19/2022 PT PLAN OF CARE CERTIFICATION PT PLAN OF CARE CERTIFICATION Procedures Routine Spinal stenosis of lumbar region, unspecified whether neurogenic claudication present Lumbar spondylosis Spondylolisthesis of lumbar region Radiculopathy, lumbar region Ordered: 11/06/2022 [facility] Comment on above: Ordered: 11/06/2022 Specific gravity of Urine [facility] Work Phone: End: 05-27-2023 SPIROMETRY WITH DILATOR IF OBSTRUCTED SPIROMETRY WITH DILATOR IF OBSTRUCTED PFT Routine FIELD (dyspnea on exertion) Chronic cough 1 Occurrences starting 04/27/2022 until 05/27/2023 [facility] Work Phone: Comment on above: 1 Occurrences starting 04/27/2022 until 05/27/2023 SPIROMETRY WITH DILA TOR IF OBSTRUCTED SPIROMETRY WITH DILATOR IF OBSTRUCTED PFT Routine FIELD (dyspnea on exertion) Chronic cough 04/28/2022 9:46 AM EST [facility] Work Phone: UA DIP B/O UA DIP B/O Lab R outine UTI symptoms Ordered: 01/10/2024 [facility] Work Phone: Comment on above: Ordered: 01/10/2024 Urinalysis, blood, qualitative [facility] Work Phone: Urine dipstick for glucose [facility] Work Phone: Urine dipstick for leukocyte esterase [facility] Work Phone: Urine dipstick for nitrite [facility] Work Phone: Urine dipstick for protein [facility] Work Phone: Urine examination [facility] Work Phone: Urine microscopy: epithelial cells [facility] Work Phone: Urine Microscopy: wh ite cells [facility] Work Phone: Urobilinogen [Presen ce] in Urine [facility] Work Phone: End: 08-05-2024 US BREAST LTD RIGHT US BREAST LTD RIGHT Radiology Routine Abnormal mammogram 1 Occurrences starting 07/07/2023 until 08/05/2024 [facility] Work Phone: Comment on above: 1 Occurrences starting 07/07/2023 until 08/05/2024 End: 03-15-2025 US Carotid arteries - bilateral US CAROTID ARTERIES [facility] Vascular Lab Routine Carotid stenosis, right 1 Occurrences starting 08/13/2023 until 08/12/2024 [facility] Work Phone: Comment on above: 1 Occurrences starting 08/13/2023 until 08/12/2024 End: 08-16-2023 US CAROTID ARTERIES [facility] US CAROTID ARTERIES [facility] Vascular Lab Routine Bilateral carotid artery stenosis 1 Occurrences starting 08/15/2022 until 08/16/2023 [facility] Work Phone: Comment on above: 1 Occurrences starting 08/15/2022 until 08/16/2023 End: 06-20-2023 XR DIGIT GENERAL 3V FRONTAL/LAT/OBL RIGHT XR DIGIT GENERAL 3V FRONTAL/LAT/OBL RIGHT Radiology Routine Finger injury, right, initial encounter 1 Occurrences starting 05/21/2022 until 06/20/2023 [facility] Work Phone: Comment on above: 1 Occurrences starting 05/21/2022 until 06/20/2023 End: 01-22-2025 XR Knee - right AP and Lateral XR KNEE LIMITED 2V AP/LAT RIGHT Radiology Routine Acute pain of right knee 1 Occurrences starting 12/24/2023 until 01/22/2025 [facility] Work Phone: Comment on above: 1 Occurrences starting 12/24/2023 until 01/22/2025 XR Knee - right AP a nd Lateral XR KNEE LIMITED 2V AP/LAT RIGHT Radiology Routine Acute pain of right knee 12/27/2023 1:54 PM EDT [facility] Work Phone: [facility] Immunizations Immunization Date Immunization Notes Care Provider [facility] 03-29-2024 influenza, seasonal, injectable Moraima Montelongo MD Work Phone: [facility] 03-29-2024 influenza virus vacc ine, unspecified formulation Radha Walters MD Work Phone: [facility] 05-14-2023 COVID-19 vaccine, ag e 12+ yr, season (PFIZER-BIONTECH) Guillaume Dominguez MD Work Phone: [facility] 02-02-2023 influenza (HD-IIV4) vaccine, age 65+ yr, high dose, quadrivalent, PF (FLUZONE HIGH-DOSE) Josefa Caputo APRN.[employer] SUPERVISOR Work Phone: [facility] Work Phone: 02-02-2023 influenza virus vacc ine, unspecified formulation Guillaume Dominguez MD Work Phone: [facility] 03-02-2022 COVID-19 booster vaccine, age 12+ yr, bivalent (PFIZER-BIONTECH) Mi Nurse Work Phone: [facility] Work Phone: 02-10-2022 influenza, high-dose , quadrivalent vaccine (FLUZONE HIGH DOSE QUADRIVALENT) Mo Nurse Work Phone: [facility] Work Phone: 04-14-2021 COVID-19 vaccine, ag e 12+ yr (PFIZER-BIONTECH - PURPLE TOP) Curtis Nassar MD Work Phone: [facility] Work Phone: 03-03-2021 influenza, high-dose , quadrivalent vaccine (FLUZONE HIGH DOSE QUADRIVALENT) Curtis Nassar MD Work Phone: [facility] Work Phone: 08-01-2020 COVID-19 vaccine, ag e 12+ yr (PFIZER-BIONTECH - PURPLE TOP) Curtis Nassar MD Work Phone: [facility] Work Phone: 07-11-2020 COVID-19 vaccine, ag e 12+ yr (PFIZER-BIONTECH - PURPLE TOP) Curtis Nassar MD Work Phone: [facility] Work Phone: 03-07-2020 influenza, high-dose , quadrivalent vaccine (FLUZONE HIGH DOSE QUADRIVALENT) Curtis Nassar MD Work Phone: [facility] Work Phone: 02-25-2019 influenza, high dose seasonal, preservative-free Curtis Nassar MD Work Phone: [facility] 03-01-2018 influenza, high dose seasonal, preservative-free Curtis Nassar MD Work Phone: [facility] Work Phone: 03-03-2017 influenza, high dose seasonal, preservative-free Curtis Nassar MD Work Phone: [facility] 10-09-2016 tetanus and diphther ia toxoids, adsorbed, preservative free, for adult use (5 Lf of tetanus toxoid and 2 Lf of diphtheria toxoid) Curtis Nassar MD Work Phone: [facility] Work Phone: 09-01-2016 pneumococcal conjuga te vaccine, 13 valent Curtis Nassar MD Work Phone: [facility] 04-08-2016 influenza, high dose seasonal, preservative-free Curtis Nassar MD Work Phone: [facility] Work Phone: 04-09-2015 influenza, high dose seasonal, preservative-free Curtis Nassar MD Work Phone: [facility] 03-16-2013 Influenza virus vaccine [facility] 01-25-2013 pneumococcal polysaccharide vaccine, 23 valent Curtis Nassar MD Work Phone: [facility] 09-30-2012 zoster vaccine, live Curtis chapman MD Work Phone: [facility] Work Phone: 06-04-2005 influenza virus vacc ine, unspecified formulation Curtis Nassar MD Work Phone: [facility] Work Phone: Payers Date Payer Category Payer Self-pay [id number] 2022 Medicare [facility] [id number] 2017 Medicare [id number] 2017 Medicare HUMANA MEDICARE HUMANA GOLD PLUS [id number] 2017-Present [phone] [address] [address] [place] [address] HMO [id number] 2017 Medicare (Managed Care) HUMANA G OLD PLUS [id number] 2017 Private Health Insurance [id number] Unknown [id number] Unknown [id number] .[id number] Unknown [id number] .2.462 Unknown [id number] .2.462 Unknown [id number] .2.462 Unknown [id number] .2.462 Unknown [id number] .2.462 Unknown [id number] .2.462 Unknown [id number] .2.462 Unknown [id number] .2.462 Unknown [id number] .2.462 Unknown [id number] .2.462 Unknown [id number] .2.462 Unknown [id number] .2.462 Unknown [id number] .2.462 Unknown [id number] .2.462 Social History Date Type Detail Facility Start: 11-25-2010 End: 05-05-2024 Tobacco smoking status NHIS Never smoked tobacco [facility] Start: 08-22-2021 End: 08-03-2024 Alcohol intake Current non-drinker of alcohol (finding) [facility] Start: 1940 Sex Assigned At Not on file [facility] Start: 08-11-2021 End: 04-07-2022 Exposure to SARS-CoV-2 (event) Not sure [facility] Work Phone: Start: 09-28-2021 End: 10-08-2021 Exposure to SARS-CoV-2 (event) Unable to assess [facility] Work Phone: Start: 11-25-2010 Tobacco use and exposure Smokeless tobacco non-user [facility] Work Phone: Start: 02-16-2022 End: 06-12-2023 Tobacco smoking status NJIS Unknown if ever smoked [facility] Start: 08-27-2020 None [facility] Start: 08-27-2020 Spouse/ Signif icant Other [facility] Start: 02-16-2022 Non-smoker [facility] Start: 1940 Sex Assigned At Female [facility] Start: 10-05-2022 End: 11-10-2022 History of Social function [facility] Work Phone: Start: 10-05-2022 End: 11-10-2022 Tobacco use panel [facility] Work Phone: Adult Depression Screening Assessment 6 [facility] Work Phone: (I/We) worried wheth er (my/our) food would run out before (I/we) got money to buy more. Never true [facility] In the past 12 month s, was there a time when you were not able to pay the mortgage or rent on time? No [facility] Start: 07-31-2024 End: 09-01-2024 Sex Female (finding) [facility] Medical Equipment Procedure Code Equipment Code Equipment Origin al Text Equipment Identifier Dates ORIF, hip, using Gamma nail ([id number]) Orthopaedic bone screw, non-bioabsorbable, sterile [id number] FDA Start: 01-11-2024 ORIF, hip, using Gamma nail ([id number]) Orthopaedic bone screw, non-bioabsorbable, sterile ()[id number] FDA Start: 01-11-2024 ORIF, hip, using Gamma nail ([id number]) Femur nail, sterile ()[id number] FDA Start: 01-11-2024 [id number] Start: 11-09-2016 Comment on above: ONE TOUCH ULTRA [address] STRIPS TESTING 2 TIMES DAILY INSULIN NO DX E11.65 [id number], [id number], [id number], [id number], [id number], [id number] Start: 10-22-2020 End: 05-07-2024 Comment on above: Check sugars 3 times daily use to check sugars twice a day 1 Strip three times daily. Use as instructed DX: E11.42 Test blood sugar(s) 3 times daily. Dx: Other DM Code E11.42 Insulin: No ONE TOUCH ULTRA 2 TEST STRIPS TESTING 2 TIMES DAILY INSULIN NO DX E11.65 [id number] Start: 11-09-2016 End: 05-07-[address] us Bovine Collagen Matrix 3x3in Soft Tissue Patch - [id number] Start: 05-06-[address] us Bovine Collagen Matrix 3x3in Soft Tissue Patch - [id number] Start: 05-06-2024 Pangea Distal Fe mur Plate Left 280mm [id number] Start: 05-07-2024 Level One Neuro Screw Onedrive Drill Free 1.5 X 4 Mm Ti-6al-4v [id number] Ea - [id number] Start: 05-06-2024 Comment on above: Description: Entered from worksheet. Screws are needed to attach the plates to the skull. L1 Neuro [place] Hl Cov Ultraone Contour W/Tab Scrw 6 Hl 18mm D T0.35mm Ti - [id number] Start: 05-06-2024 Lvl 1 Neuro Plt Ultraone Str W/Tab Scrw 4 Hole 22mm T0.35mm Ti-6al-4v 1ea - [id number] Start: 05-06-2024 Lvl 1 Neuro Plt Ultraone Str W/Tab Scrw 2 Hole 17mm T0.35mm Ti-6al-4v 1ea - [id number] Start: 05-06-2024 Screw Bone 3.5mm 36mm Axsos 3 Titanium Cortex Self Tap Lock Nonsterile - [id number] Start: 05-07-2024 Pangea Locking S crew 5mm X 65mm [id number] Start: 05-07-2024 Locking Screw, 5 .0mm / T20 / L75mm [id number] Start: 05-07-2024 Locking Screw, 5 .0mm / T20 / L70mm [id number] Start: 05-07-2024 Screw Bone 4.5mm 42mm Axsos 3 Titanium Cortex Self Tap Lock Nonsterile - [id number] Start: 05-07-2024 Locking Screw, 5 .0mm / T20 / L60mm [id number] Start: 05-07-2024 Locking Screw, 5 .0mm / T20 / L38mm [id number] Start: 05-07-2024 Screw Bone 3.5mm 32mm Titanium Cortical Lock Nonsterile Axsos 3 - [id number] Start: 05-07-2024 Screw Bone 3.5mm 34mm Titanium Cortical Nonsterile Axsos 3 - [id number] Start: 05-07-2024 Agent Avitene Collagen Hemostatic Microfibrillar Flour Sterile Latex Free 1 - [id number] Start: 05-06-2024 Functional Status Date Assessment Result Facility 03-25-2019 Are you deaf, or do you have serious difficulty hearing No 03/25/2019 11:46 AM Lety Galloway RN [facility] 03-25-2019 Are you blind, or do you have serious difficulty seeing, even when wearing glasses No 03/25/2019 11:46 AM Lety Galloway RN [facility] 03-25-2019 Do you have serious difficulty walking or climbing stairs No 03/25/2019 11:46 AM Lety Galloway, ISMAEL [facility] 03-25-2019 Do you have difficul ty dressing or bathing No 03/25/2019 11:46 AM Lety Galloway, ISMAEL [facility] 03-25-2019 Because of a physica l, mental, or emotional condition, do you have difficulty doing errands alone such as visiting a physician's office or shopping No 03/25/2019 11:46 AM Lety Galloway RN [facility] Mental Status Date Assessment Result Facility 06-12-2023 Cognitive function Level Of Cons ciousness Awake;Alert;Appropriate;Fol lows Commands [facility] Work Phone: 02-16-2022 Cognitive function Voice/Name [facility] Work Phone: 03-25-2019 Because of a physica l, mental, or emotional condition, do you have serious difficulty concentrating, remembering, or making decisions No 03/25/2019 11:46 AM Lety Galloway RN No [facility] Clinical Notes 01-05-2019 to 12-25-2024 Telephone Encounter - Hayley Nunn 12/25/2024 3:49 PM EDTTelephone Encounter - Hayley Nunn 12/25/2024 3:49 PM EDTTelephone Encounter - Hayley Nunn 12/25/2024 10:43 AM EDT Note Date & Type Note Facility 12-25-2024 Telephone encounter Note Diflucan not worth it, patient already taking. Aquafor--was told to never to use an ointment, so did not use it. Using cornstarch to keep dry as best as possible, Patient is bedridden and cannot come in for an appointment. She has open lesions. Bad situation., Daughter needs an alternative [phone] [facility] 12-25-2024 Miscellaneous Notes Diflucan not worth it, patient already taking. Aquafor--was told to never to use an ointment, so did not use it. Using cornstarch to keep dry as best as possible, Patient is bedridden and cannot come in for an appointment. She has open lesions. Bad situation., Daughter needs an alternative [phone] Message left for patient's daughter, Hardy, asking how patient is doing. documented in this encounter [facility] 12-25-2024 Telephone encounter Note Message left for patient's daughter, Hardy, asking how patient is doing. [facility] 09-18-2024 History of Present illness Narrative [...] 2024 1:13 PM documented in this encounter [facility] 08-17-2024 History of Present illness Narrative POPULATION HEALTH NAVIGATION OUTREACH Action/FYI Patient to schedule A1C, AWV, KED, DIABETIC EYE EXAM Reason for Outreach Care Gap/HCC or Scheduling Wellness Visits Care Gaps due: Medicare Annual Wellness Visit Diabetic Eye Exam HBA1C KED Patient Contacted: Unable or unnecessary to reach patient: Trendyta message sent HCC related Navigation Signature: Natalya Byrd August 17, 2024 1:28 PM documented in this encounter [facility] 08-16-2024 Telephone encounter Note Spoke with patient's daughter Lashaun and notified her of the Mounjaro dose change. Attempted to fax updated RX to long-term at [phone] but it did not go through. Will try again later. Geno Moise RN [facility] 08-16-2024 Miscellaneous Notes Spoke with patient's daughter Lashaun and notified her of the Mounjaro dose change. Attempted to fax updated RX to long-term at [phone] but it did not go through. Will try again later. Geno Moise RN Please call to let the Lashaun know that it is reasonable to reduce Mounjaro for now. I will send a prescription to her pharmacy for 2.5mg weekly. Once the appetite improves, she will likely need to resume 5mg dose. Thank you- Sasha Caldwell APRN.CNP Images from the original note were not included. This nurse reached out to Lashaun- She reports patient had a fall and hit her head- had a craniotomy- broke her femur- not walking at this time. Patient is now in prison for [facility]. She reports the nurse has reported to her that patients blood sugars have been low- typically in 70-90 range, highest one in the past month and 1/2 was 140. Patient is not eating as much as she was before- food is more regulated than it was in assisted living. Patient is also losing more weight than they had wanted. Nurse at prison is requesting review- possibly lower dose of mounjaro. Lashaun reports she picks up this medication and takes it to the long-term. She uses [facility]- phone number [phone]. This nurse requested a log of recent blood sugars to be faxed to us from long-term. prison requests a new order be faxed to [place]- fax number to be provided via [employer] message. Patients daughter Lashaun calling in asking for a call back to discuss lowering the dosage of patients medication. Her food has decreased and her sugar reading are lower and asking to lower tirzepatide (MOUNJARO) 5 mg/0.5 mL pen injector Please call Lashaun back [phone] Thank you Velvet SHORT August 09, 2024 11:59 AM documented in this encounter [facility] 08-16-2024 Telephone encounter Note Please call to let the Lashaun know that it is reasonable to reduce Mounjaro for now. I will send a prescription to her pharmacy for 2.5mg weekly. Once the appetite improves, she will likely need to resume 5mg dose. Thank you- Sasha Caldwell APRN.[employer] BUILDER SUPERVISOR [facility] 08-15-2024 Telephone encounter Note Images from the original note were not included. T [facility] 08-10-2024 Telephone encounter Note This nurse reached out to Lashaun- She reports patient had a fall and hit her head- had a craniotomy- broke her femur- not walking at this time. 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 She reports the nurse has reported to her that patients blood sugars have been low- typically in 70-90 range, highest one in the past month and 1/2 was 140. Patient is not eating as much as she was before- food is more regulated than it was in assisted living. Patient is also losing more weight than they had wanted. Nurse at prison is requesting review- possibly lower dose of mounjaro. Lashaun reports she picks up this medication and takes it to the long-term. She uses [facility]- phone number [phone]. This nurse requested a log of recent blood sugars to be faxed to us from long-term. prison requests a new order be faxed to [place]- fax number to be provided via [employer] message. [facility] 08-09-2024 Telephone encounter Note Patients daughter Lashaun calling in asking for a call back to discuss lowering the dosage of patients medication. Her food has decreased and her sugar reading are lower and asking to lower tirzepatide (MOUNJARO) 5 mg/0.5 mL pen injector Please call Lashaun back [phone] Thank you Velvet SHORT August 09, 2024 11:59 AM [facility] 08-03-2024 History of Present illness Narrative NEUROSURGERY POST-OP NOTE Tika Jones MD Date of visit: August 03, 2024 Patient Name: Ms.Jacqueline Kayleigh Davenport Date of : 1940 Current Age: [age] year old Sex: female MRN/E# [id number] Last Office Visit: 08/01/2024 CLINICAL SUMMARY: KPS: [...] II, previous PE, on Eliquis presented [facility]/24 as a trauma from [facility] with a right acute subdural hematoma with mass effect following a fall at an assisted living facility. CT scan of the brain completed at [facility] showed worsening SDH with 7mm right [...] her own. She is currently residing at [facility]. She presents today with her daughter( Hardy [...] once every month. To be administered at [facility] by nurse 1 mL 12 oxybutynin ER [...] some time. She was ultimately [facility]. Of note the patient has baseline mild dementia. The daughter states that when she got to the [facility] facility in early May she was back to close to her baseline mentation however over the last few weeks she is taken a significant decline from a mentation cognitive perspective. Of note, she has had recurrent UTIs which I think may be playing a factor. Her CT scan that was done yesterday shows complete resolution of her right subdural hematoma. I did clinical counselor her that the recovery of traumatic [...] plan. Tika Jones MD Department of Neurosurgery [facility] This note was partially generated using [employer] voice recognition system, and there may be some incorrect words, spellings, and punctuation that were not noted in checking the note before saving. documented in this encounter [facility] 08-03-2024 Note [facility] 08-01-2024 Telephone encounter Note Vidhi from [facility] called [phone] called to inform that the needed the prior authorization number for patients CT scan. Provided referral # and authorization # as well. Notified Dr. Jones and primary nurse Sarika. Monika Fried RN [facility] 08-01-2024 Miscellaneous Notes Vidhi from [facility] called [phone] called to inform that the needed the prior authorization number for patients CT scan. Provided referral # and authorization # as well. Notified Dr. Jones and primary nurse Sarika. Monika Fried RN documented in this encounter [facility] 07-04-2024 Telephone encounter Note I called Vidhi and let her know that per MTM patient is now WBAT. Glendy Fry [facility] 07-04-2024 Miscellaneous Notes I called Vidhi and let her know that per MTM patient is now WBAT. Glendy Fry Vidhi-called to see if we rec'd the films yet. I let her know we did not but I will call [facility] Stapleton and have them emailed in. Glendy Fry Ivelisse nurse, called and the patient's daughter is [...] Fry I spoke with Vidhi @ the [facility] and x-rays were completed. I called Sher Stapleton and they emailed them. I forwarded to doctor to review. They also want to remove rebekah and they will email a pic for review. Glendy Fry 2 view L femur x-rays to be done on 05-29 with films to view Glendy Fry documented in this encounter [facility] 07-04-2024 Telephone encounter Note Vidhi-called to see if we rec'd the films yet. I let her know we did not but I will call Sher Stapleton and have them emailed in. Glendy Fry [facility] 06-20-2024 Telephone encounter Note This Rx was cancelled upon discharge from [facility]the trauma surgery team on 05/19. Patient should discuss with surgeon re resuming . [facility] Work Phone: 06-20-2024 Miscellaneous Notes This Rx was cancelled upon discharge from [facility]the trauma surgery team on 05/19. Patient should discuss with surgeon re resuming . Images from the original note were not included. documented in this encounter [facility] 06-20-2024 Telephone encounter Note Images from the original note were not included. [facility] 06-09-2024 Telephone encounter Note Ivelisse, , called and the patient's daughter is requesting the x-ray to be done sooner more like the beginning of July to see if there have been any changes. I will check with the doctor and call them back. Glendy Fry [facility] 06-01-2024 Telephone encounter Note X-rays were good, rebekah were able to be removed and Vidhi will call with any further questions. Next x-ray to be done in 8 weeks. Glendy Fry [facility] 05-30-2024 Telephone encounter Note I spoke with Vidhi @ the [facility] and x-rays were completed. I called Sher Stapleton and they emailed them. I forwarded to doctor to review. They also want to remove rebekah and they will email a pic for review. Glendy Fry [facility] 05-29-2024 Telephone encounter Note Kathrine from [facility] calling asking for a copy of patient immunizations to be faxed to [phone]. Printed and faxed as requested. [facility] 05-29-2024 Miscellaneous Notes Kathrine from [facility] calling asking for a copy of patient immunizations to be faxed to [phone]. Printed and faxed as requested. documented in this encounter [facility] 05-22-2024 Telephone encounter Note 2 view L femur x-rays to be done on 05-29 with films to view Glendy Fry [facility] 05-22-2024 Telephone encounter Note Faxed November [address] [facility], per Natalya request. Natalya needed ov notes that included medication list and problem list. Reports patient was d/c'd from [facility] to their [facility]. Reports patient Dx: subdural hemorrage from a fall, and left knee fracture also from fall. [facility] 05-22-2024 Miscellaneous Notes Faxed November [address] [facility], per Natalya request. Natalya needed ov notes that included medication list and problem list. Reports patient was d/c'd from [facility] to their [facility]. Reports patient Dx: subdural hemorrage from a fall, and left knee fracture also from fall. documented in this encounter [facility] 05-22-2024 Telephone encounter Note I spoke with the patient and scheduled an appointment. Glendy Fry [facility] 05-22-2024 Miscellaneous Notes I spoke with [...] call to if other than patient: Pamela Ortiz Best contact number: [phone] Thank you, Natasha Nelson May 22, 2024 10:28 AM documented in this encounter [facility] 05-22-2024 Telephone encounter Note ----- Message [...] Date of : 1940 Previous Provider Seen: Roor Body Part(s) Identified: L femur Diagnosis/Reason For [...] call to if other than patient: Pamela Ortiz Best contact number: [phone] Thank you, Natasha Nelson May 22, 2024 10:28 AM [facility] 05-19-2024 Note [facility] 05-18-2024 Note [facility] 05-18-2024 Note [facility] 05-18-2024 Note [facility] 05-17-2024 Note [facility] 05[facility]17-2024 Note [facility] 05-16-2024 Note [facility] 05[facility]16-2024 Note [facility] 05-16-2024 Note [facility] 05-15-2024 Note [facility] 05[facility]15-2024 Note [facility] 05[facility]15-2024 Note [facility] 05-14-2024 Note [facility] 05[facility]14-2024 Note [facility] 05-14-2024 Note [facility] 05[facility]13-2024 Note [facility] 05-13-2024 Note [facility] 05-13-2024 Note HNO ID: [id number] Author: NOTE, INTERFACE, ? Service: ? Author Type: ? Type: Progress Notes Filed: 05/18/2024 16:04 Note Text: Epic Scheduled Downtime: 05/13/2024 1:00:00 AM to 05/13/2024 2:52:17 AM [facility] 05-12-2024 Note [facility] 05-12-2024 Note [facility] 05-12-2024 Note [facility] 05-11-2024 Note [facility] 05-11-2024 Note [facility] 05-11-2024 Note [facility] 05-11-2024 Note [facility] 05-11-2024 Note [facility] 05-11-2024 Note [facility] 05-11-2024 Note [facility] 05-10-2024 Note [facility] 05-10-2024 Telephone encounter Note Last read by Shelley Davenport at 1:22 PM on 05/09/2024. Tana Tirado [facility] 05-10-2024 Miscellaneous Notes Last read by Shelley Davenport at 1:22 PM on 05/09/2024. Tana Tirado Images from the original note were not included. Adina Lay APRN.HIMA P [facility] 6 month follow up with Dr. Walker 1st attempt Sent mc to call office. Jonathon Morse PAC documented in this encounter [facility] 05-10-2024 Note [facility] 05-10-2024 Note [facility] 05-10-2024 Note [facility] 05-09-2024 Note [facility] 05-09-2024 Note [facility] 05-09-2024 Telephone encounter Note Images from the original note were not included. Adina Lay APRN.CNP [facility] 6 month follow up with Dr. Walker 1st attempt Sent mc to call office. Jonathon Lito PAC [facility] 05-09-2024 Note [facility] 05-09-2024 Instructions Adina Lay APRN.CNP - 05/09/2024 10:36 AM EST Plan: 1) stay on the same dose of Mounjaro 2) return to Dr. Rajiv Walker in 6 months documented in this encounter [facility] 05-09-2024 Note [facility] 05-09-2024 Note [facility] 05-08-2024 Note [facility] 05-08-2024 Note [facility] 05-08-2024 Note [facility] 05[facility]08-2024 Note [facility] 05-07-2024 Note [facility] 05[facility]07-2024 Note [facility] 05[facility]07-2024 Note [facility] 05[facility]07-2024 Note [facility] 05[facility]07-2024 Note [facility] 05[facility]07-2024 Note [facility] 05[facility]07-2024 Note [facility] 05-07-2024 Note [facility] 05-06-2024 Note [facility] 05[facility]06-2024 Note [facility] 05[facility]06-2024 Note [facility] 05-06-2024 Note [facility] 05-06-2024 History of Present illness Narrative Images from the original note were not included. CRITICAL CARE TRANSPORT MEDICAL CONTROL CONSULT NOTE Patient Name: Miriam Davenport Service Date: May 06, 2024 Referring Facility: [facility] Accepting Facility: [facility] REASON FOR TRANSPORT: higher level of [...] consult, significant for dementia who presented to [facility] for evaluation of SAH s/p fall. [...] read back via telephone with CCT Transport juice bar team member, Santos Douglas RN SIGNATURE: Amanda Patterson APRN.CNP Acute Care Nurse Practitioner Critical Care Transport documented in this encounter [facility] 05-05-2024 History of Present illness Narrative DISTANCE HEALTH VISIT This Team Access Model visit is a virtual encounter. It required patient-provider interaction for the medical decision making as documented below. I have communicated my name and active licensure. The patient's identity and physical location were verified at the time of this visit. Either the patient or their legal food service sales representatives has been informed of the risks and [...] Making Level: 4 - Moderate Adina Lay APRN.HIMA (Signed electronically to expedite mailing) Data Review daughter Hardy has iPhone=Von ([phone]) History Diabetes type 2, dx 1990 last eye exam November, had cataract surgery, no DM eye disease December 2022, though has early macular degen no hx [place], stroke, claudication, intolerant of statins, niacin and [...] x 3. 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 Tape [Other] documented in this encounter [facility] 05-03-2024 Telephone encounter Note Appointment needs to be rescheduled with Dr. Raymundo Jensen [facility] 05-03-2024 Miscellaneous Notes Appointment needs to be rescheduled with Dr. Raymundo Jensen documented in this encounter [facility] 04-28-2024 Instructions Guillaume Dominguez MD - [...] Montelongo in May. - Next appointment with commissioned sales associate Adina Lay on May 05. - Schedule an appointment with Dr. Knott for dementia evaluation. documented in this encounter [facility] 04-28-2024 History of Present illness Narrative This note was created using appirisriter. Subjective Miriam Davenport is a 84 year [...] which she discontinued 2 years ago with hull and deck remover approval. She is not currently following with a hull and deck remover. 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 To be administered at [facility] by nurse apixaban (ELIQUIS) 5 mg tab(s) [...] was 6.3% in January. - Follow-up with commissioned sales associate Adina Lay on May 05. # Vitamin [...] which included preparing to see the patient, [id number] patient care, completing clinical documentation, obtaining and/or reviewing separately obtained history, performing a medically appropriate examination, and counseling and educating the patient/family/caregiver. Guillaume Dominguez MD documented in this encounter [facility] 04-14-2024 Telephone encounter Note Received voicemail 04-14-24 at 12:04 PM. Hi my name is Hardy. I'm calling in regard to Miriam Lavon, 1940. She had an injection [address] Montelongo and she needs to get another back injection. I don't know what else you need. I am her daughter. Please call me back and hopefully get something scheduled soon. My phone number is [phone]. I am her medical proxy. Thank you." Left L4-5 lumbar transforaminal epidural steroid injection 03-30-[address] Montelongo Last office visit with Nic Garcia APRN.WOOD BOAT BUILDER SUPERVISOR 03-10-24 Call to patient's daughter. Started at 9/10 pain level prior to injection, the injection has taken the pain down to a 5/10, but now within the past week it has gone back up to 7/10. She is able to walk, but pain is increasingly going up. Spoke to HAZEL Hough who recommended patient seeing Dr. Montelongo versus Oralia Garcia APRN.HIMA. Will have PSS reach out to daughter Hardy to schedule. Informed daughter of OTC remedies patient can use as long as there are no other contraindications including tylenol/ibuprofen, lidocaine/voltaren gel, ice/heat, rest. She verbalized understanding. [facility] 04-14-2024 Miscellaneous Notes Received voicemail 04-14-24 at 12:04 PM. Hi my name is Hardy. I'm calling in regard to Miriam Lavon, 1940. She had an injection [address] Montelongo and she needs to get another back injection. I don't know what else you need. I am her daughter. Please call me back and hopefully get something scheduled soon. My phone number is [phone]. I am her medical proxy. Thank you." Left L4-5 lumbar transforaminal epidural steroid injection 03-30-[address] Montelongo Last office visit with Nic Garcia APRN.WOOD BOAT BUILDER SUPERVISOR 03-10-24 Call to patient's daughter. Started at 9/10 pain level prior to injection, the injection has taken the pain down to a 5/10, but now within the past week it has gone back up to 7/10. She is able to walk, but pain is increasingly going up. Spoke to HAZEL Hough who recommended patient seeing Dr. Montelongo versus Oralia Garcia APRN.WOOD BOAT BUILDER SUPERVISOR. Will have PSS reach out to daughter Hardy to schedule. Informed daughter of OTC remedies patient can use as long as there are no other contraindications including tylenol/ibuprofen, lidocaine/voltaren gel, ice/heat, rest. She verbalized understanding. documented in this encounter [facility] 03-10-2024 Telephone encounter Note Procedure: Left L4-5 TFESI Procedure Date: 03/30/2024 Cardiac Clearance: Eliquis Cardiac Clearance letter generated and faxed to patient's PCP, Dr. Guillaume Dominguez, for approval to hold Eliquis for two days prior to injection procedure. Fax confirmation received. Awaiting determination. [facility] 03-10-2024 Miscellaneous Notes Procedure: Left L4-5 TFESI Procedure Date: 03/30/2024 Cardiac Clearance: Eliquis Cardiac Clearance letter generated and faxed to patient's PCP, Dr. Guillaume Dominguez, for approval to hold Eliquis for two days prior to injection procedure. Fax confirmation received. Awaiting determination. documented in this encounter [facility] 03-10-2024 History of Present illness Narrative Subjective [facility] [...] which included preparing to see the patient, [id number] patient care, completing clinical documentation, performing a [...] March 10, 2024 documented in this encounter [facility] 01-13-2024 Miscellaneous Notes Daughter Hardy called to get a list of pt's allergies to [facility]. Pt broke her hip on Wednesday01-10-24 and had surgery on 01-11-24. Pt now in TCU at [facility]. Pt was given Hydrocodone and daughter reports pt is allergic to this. Pt is itching and daughter is upset because they never contacted her. I called TCU and got their fax and faxed over the allergy list. Faxed the snapshot over to [phone], attn: Martine. Marquita Mclaughlin LPN documented in this encounter [facility] 08-15-2024 Telephone encounter Note Daughter Hardy called to get a list of pt's allergies to [facility]. Pt broke her hip on Wednesday01-10-24 and had surgery on 01-11-24. Pt now in TCU at [facility]. Pt was given Hydrocodone and daughter reports pt is allergic to this. Pt is itching and daughter is upset because they never contacted her. I called TCU and got their fax and faxed over the allergy list. Faxed the snapshot over to [phone], attn: Martine. Marquita Mclaughlin LPN [facility] 01-10-2024 History of Present illness Narrative [...] URINALYSIS WITH MICROSCOPIC, REFLEX CULTURE Comfort Patterson APRN.CUSTOMER INSIGHT ANALYST Medical Decision Making: Problems: Low: Acute, uncomplicated illness or injury Data: Unique test(s) ordered: 2 Risk: Moderate: Drug management Medical Decision Making Level: 3 - Low documented in this encounter [facility] 01-10-2024 Instructions Comfort Patterson APRN.CNS - 01/10/2024 11:56 AM EDT Images from [...] treated. A physician, nurse practitioner or physician kindergarten instructional assistant may treat with a short course [...] if symptoms resolve. documented in this encounter [facility] 12-27-2023 History of Present illness Narrative [...] PATIENT PRESENTS WITH AN IMPLANTABLE OR ATTACHED REGISTERED NURSE BEHAVIORAL HEALTH: No RADIOLOGY DEPARTMENT: General X-ray: Exam(s) Completed: Lower Extremity X-Ray(s): Knee, AP / LAT Right PERIPHERAL IV DATA: Not applicable SIGNED BY: RT Luis(R) December 27, 2023 1:34 PM documented in this encounter [facility] 12-24-2023 History of Present illness Narrative [...] once every month. 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 12/24/2023 by Josefa Caputo APRN.CNP Although Ultram/tramadol is not a narcotic it [...] Josefa Caputo APRN-HIMA documented in this encounter [facility] 12-21-2023 Telephone encounter Note DaughterLashaun, reports [...] Chisholm RN December 21, 2023 1:12 PM [facility] 12-21-2023 Miscellaneous Notes DaughterLashaun, reports patient is out of test [...] 2023 1:12 PM documented in this encounter [facility] 12-10-2023 History of Present illness Narrative This note was created using appirisriter. Subjective Miriam Davenport is a 83 year old female. Patient presents with: F/U 6 months SUBJECTIVE: Miriam Davenport is a 83 year old year old lady here today for 6 month follow up appointment for review of medical conditions. Doing well at [facility]. Likes their rooms (there with her ). [...] Would like to pursue geriatric consultation in [place]. 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 MORBID OBESITY 08/18/2007 Obstructive sleep apnea Sleep study 2003 Occlusion and stenosis of carotid artery without mention of cerebral infarction 03/09/2006 mild stenosis shown on u/s at [facility] u/s repeated 02/02/07 with no change Open fracture of tuft of distal phalanx of finger 05/06/2022 PAC (premature atrial contraction) Pulmonary embolism (HCC) Pure hypercholesterolemia Type II or unspecified type diabetes mellitus with renal manifestations, uncontrolled(250.42) Unspecified glaucoma(365.9) Unspecified pruritic disorder Current Outpatient Medications Medication Sig cyanocobalamin 1,000 mcg/mL Inject 1 mL intramuscularly once every month. To be administered at [facility] by nurse apixaban (ELIQUIS) 5 mg tab(s) [...] Abs Lymph 1.00 - 4.00 k/uL 1.35 Boone% % 8.4 Abs Boone <0.87 k/uL 0.70 Eosin% % 1.7 Abs [...] keep trying to eat healthy diet at [facility] assisted living. Will verify when will need refills for [...] Guillaume Dominguez MD documented in this encounter [facility] 11-12-2023 Telephone encounter Note Daughter calls asking about status of request. Daughter notified that order was faxed over to [facility] this am. Tabitha Madrid RN [facility] 11-12-2023 Miscellaneous Notes Daughter calls asking about status of request. Daughter notified that order was faxed over to [facility] this am. Tabitha Madrid RN Spoke with nurse shelley [facility] and she states prescription can be faxed to them at [phone]. Prescription faxed See if faxed of order that was printed is what they need. Otherwise, call in the order if that is what they need Patient's request for medication is as follows: Requested Prescriptions Signed Prescriptions Disp Refills cyanocobalamin 1,000 mcg/mL 1 mL 12 Sig: Inject 1 mL intramuscularly once every month. To be administered at [facility] by nurse Authorizing Provider: GUILLAUME DOMINGUEZ Prescription(s) printed as above. Please process accordingly. Daughter (Hardy) calls to report that patient is now residing at [facility] and they are able to give patient her monthly B-12 injections. Daughter requests that an order for [facility] be given so that they are able to administer medication. Per daughter: [facility] Nurse Line: [phone] Patient cancelled last weeks appointment so is due anytime for injection. Please review and advise. Anne Jennings RN documented in this encounter [facility] 11-12-2023 Telephone encounter Note Spoke with nurse shelley [place] Trish and she states prescription can be faxed to them at [phone]. Prescription faxed [facility] 11-11-2023 Telephone encounter Note See if faxed of order that was printed is what they need. Otherwise, call in the order if that is what they need Patient's request for medication is as follows: Requested Prescriptions Signed Prescriptions Disp Refills cyanocobalamin 1,000 mcg/mL 1 mL 12 Sig: Inject 1 mL intramuscularly once every month. To be administered at [facility] by nurse Authorizing Provider: GUILLAUME DOMINGUEZ Prescription(s) printed as above. Please process accordingly. [facility] 11-11-2023 Telephone encounter Note Spoke to patient's daughter and confirmed that [facility] address was correct and she provided the room number, which is 186. Letter has been put in the mail. [facility] 11-11-2023 Miscellaneous Notes Spoke to patient's daughter and confirmed that [facility] address was correct and she provided the room number, which is 186. Letter has been put in the mail. documented in this encounter [facility] 11-08-2023 Telephone encounter Note Daughter (Hardy) calls to report that patient is now residing at [facility] and they are able to give patient her monthly B-12 injections. Daughter requests that an order for [facility] be given so that they are able to administer medication. Per daughter: [facility] Nurse Line: [phone] Patient cancelled last weeks appointment so is due anytime for injection. Please review and advise. Anne Jennings RN [facility] 10-29-2023 Instructions Curtis Nassar MD - [...] Curtis Nassar MD documented in this encounter [facility] 10-29-2023 History of Present illness Narrative [...] MD Data Review daughter Hardy has iPhone=FaceTime ([phone]) History Diabetes type 2, dx 1990 last eye exam November, had cataract surgery, no DM eye disease December 2022, though has early macular degen no hx [place], stroke, claudication, intolerant of statins, niacin and [...] x 3. 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 Tape [Other] documented in this encounter [facility] 10-29-2023 Telephone encounter Note The following approved medication requests have been transmitted electronically. Requested Prescriptions Pending Prescriptions Disp Refills apixaban (ELIQUIS) 5 mg tab(s) 60 tablet 11 Sig: Take 1 tablet by mouth two times a day. Guillaume Dominguez MD [facility] 10-29-2023 Miscellaneous Notes The following approved [...] you. Natalya Byrd. documented in this encounter [facility] 10-29-2023 Telephone encounter Note Daughter calls to let provider know she only has enough Eliquis to last through tomorrow 10/30/2023. Anne Jennings RN [facility] 10-28-2023 Telephone encounter Note Patient has [...] 12/10/2023 Please advise. Thank you. Natalya Byrd. [facility] Work Phone: 10-11-2023 History of Present illness Narrative SUBJECTIVE: RSV Vaccine(1 - 1-dose 60+ series) Never done Diabetic Foot Exam due on 09/23/2016 Behavioral Health Screening Never done Covid-19 Vaccine(2022- season) due on 09/13/2023 JUDIT Davenport is [...] plans to go to assisted living at [facility].She notes currently getting assistance with medications from [...] Has seen Dr Alegre and Dr. Schmitt [facility] cardiologists. 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 MORBID OBESITY 08/18/2007 Obstructive sleep apnea Sleep study 2003 Occlusion and stenosis of carotid artery without mention of cerebral infarction 03/09/2006 mild stenosis shown on u/s at [facility] u/s repeated 02/02/07 with no [...] Lymph 1.00 - 4.00 k/uL 1.90 1.35 Boone% % 8.5 8.4 Abs Boone <0.87 k/uL 0.78 0.70 Eosin% % 2.0 [...] without long-term current use of insulin (HCC) - ICD9: 250.02, ICD10: E11.65 (primary diagnosis) [...] appointment 12/09 at 3:25pm MD Comfort Acosta APRN.CUSTOMER INSIGHT ANALYST Medical Decision Making: Problems: Moderate: 2+ stable chronic illnesses Data: Unique test result(s) reviewed: 3+ Risk: Low: Low risk from testing/treatment Medical Decision Making Level: 4 - Moderate documented in this encounter [facility] 10-08-2023 Telephone encounter Note Yes she can go back on Mounjaro 5 mg once a week. She can take Mounjaro 1 week after taking ozempic. If there is a shortage of Mounjaro, she will need 1 mg of ozempic (not 0.5 mg). Rx Mounjaro was sent to [facility] Walker MD [facility] 10-08-2023 Miscellaneous Notes Yes she can go back on Mounjaro 5 mg once a week. She can take Mounjaro 1 week after taking ozempic. If there is a shortage of Mounjaro, she will need 1 mg of ozempic (not 0.5 mg). Rx Mounjaro was sent to [facility] in [place] Rajiv Walker MD Pts daughter states pt took Ozempic starting 10/02/23, since Mounjaro was on back order, and her blood sugars have been high ever since. She states [facility] in [place] contacted pt to let her know medication was back in stock. She would like to know if it would be okay for pt to switch back to Mounjaro for her next dose, this Wednesday. [facility] [phone] documented in this encounter [facility] 10-07-2023 Telephone encounter Note Pts daughter states pt took Ozempic starting 10/02/23, since Mounjaro was on back order, and her blood sugars have been high ever since. She states [facility] in [place] contacted pt to let her know medication was back in stock. She would like to know if it would be okay for pt to switch back to Mounjaro for her next dose, this Wednesday. [facility] [phone] [facility] 10-04-2023 History of Present illness Narrative Patient presents for B-12 injection. Denies any problems at this time. Patient instructed on any SE of medication, verbalized understanding and agreed to proceed with treatment. Tolerated injection well. Ning Mckeon LPN documented in this encounter [facility] 09-29-2023 Note Addended by: RAJIV WALKER on: 09/29/2023 08:01 PM Modules accepted: Orders [facility] 09-29-2023 Miscellaneous Notes Addended by: RAJIV [...] does not have any Mounjaro. Hardy, daughter: [phone] documented in this encounter [facility] 09-29-2023 Telephone encounter Note She can [...] mg once a week. Rajiv Walker MD [facility] 09-29-2023 Telephone encounter Note RN returned phone call. Let patient's daughter Hardy know that once the provider reviews chart, we'll get back to her with alternative prescription. 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 PSS: it is ok to transfer Hardy's call. [facility] 09-28-2023 Telephone encounter Note September 28, 2023 3:13 PM Patient's daughter called about the Mounjaro medication for patient. She is concerned as there is a national backorder on the Mounjaro medication. She wants to know if there is an alternative or what can be done in the meantime. Patient currently does not have any Mounjaro. Hardy, daughter: [phone] [facility] 09-17-2023 Miscellaneous Notes The following approved [...] you. Jeanne Davalos. documented in this encounter [facility] 09-06-2023 History of Present illness Narrative Patient presents for B-12 injection. Denies any problems at this time. Patient instructed on any SE of medication, verbalized understanding and agreed to proceed with treatment. Tolerated injection well. Ning Mckeon LPN documented in this encounter [facility] 08-16-2023 Miscellaneous Notes Pts daughter called and is notified of providers message and instructions. She voices understanding. Bessie Watson, ISMAEL No problem, I sent in the RX [...] provider sends a new script in to [facility] for 20 mg take 2 tablets daily, [employer] will cover that. Called and confirmed with [facility] pharmacist that they had run the 40 [...] leave a voicemail. documented in this encounter [facility] 08-16-2023 Miscellaneous Notes DNR comfort care orders faxed to [facility] Medical Records at [phone]. Copy also sent to scanning as well as copy mailed to patients home address as requested. MICHAEL Vazquez documented in this encounter [facility] 08-13-2023 Miscellaneous Notes This was already done. Pharmacy notified. Pharmacy reports Cymbalta 40 mg needs a PA. PRIOR AUTHORIZATION Medication for Prior Authorization: Duloxetine Cymbalta 40 mg Other formulary meds available : NO Insurance Company: [employer] Medicare part D Insurance Company phone number: [phone] Patient insurance ID number: [id number] Marquita Mcluaghlin LPN documented in this encounter [facility] 08-13-2023 Miscellaneous Notes Images from the original note were not included. Prior authorization approved Payer: [employer] [phone] PA Case: [id number], Status: Approved, Coverage Starts on: 05/31/2023 12:00:00 [...] to its destination. To be filled at: [id number] [place] [address] - [address] [facility] [phone] [id number] Electronic PA completed for duloxetine (cymbalta) documented in this encounter [facility] 08-13-2023 Instructions Josefa Caputo APRN.CNP - 08/13/2023 11:20 AM EDT Plan to see Dr. Knott with geriatrics here in [place] sometime in November or after. documented in this encounter [facility] 08-13-2023 History of Present illness Narrative [...] brain health/wellness. has had x2 strokes, in [place]. 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 Knott once seeing patient here in [place]. 4. Anxiety disorder, unspecified type - ICD9: [...] Josefa Caputo APRN-HIMA documented in this encounter [facility] 08-11-2023 Instructions Martha Germain DO - 08/11/2023 9:59 AM EDT Appointments: - Brain Health and Wellness [facility]: [phone] (option 1). This is a series of 6 group visits where you will learn how to improve your memory with a healthy lifestyle. It is available as a virtual visit or in [place] on Wednesdays 10-noon, 6 visits every other week. Next group starts January 04. - [facility] Successful Aging Program (geriatrics): [phone] Follow these guidelines to improve your memory and brain function: - Follow the MIND Diet as closely as possible. See the dietary guidelines below. - Do some form of physical activity every day, even for 5-10 minutes. The goal is to move more and sit less. See the physical activity guidelines below. Find an exercise class at the senior center and go once a week. - Engage in social activities as much as possible. Talking to other people is good for the brain! - Consider volunteering. It provides social interaction, purpose, structure, and a way to give back to the community. Opportunities can be found at www.CleanSlatest. [facility].org - Play games at least 3x/week that will stimulate and challenge your brain. Brain games are available on the following websites: StepOut and Medical Simulation. - Practice meditation or deep breathing for [...] fish and fish high in mercury (swordfish, Vietnamese sea raya, orange roughy, ahi tuna, albacore [...] Search for videos about Alzheimer's Disease at www.nutritionfacts.org - Read about modifiable risk factors in the following article online: Dementia prevention, intervention, and care: 2020 report of the Lancet Commission - Great resource in [place] for patients and families: Mediastay https://Global Analytics.org/ - Memory Cafes (A Dementia Friendly LIFE) in [facility]. [email or web address].org/memory-cafes - We Care program for caregivers through [facility] [place]: [phone] or [email or web address] Memory research at [facility]: The [facility] at [facility] and [place], [place] is conducting clinical trials to advance new treatments and diagnostic approaches for patients with memory loss, as well as cognitively normal patients. To learn more about current trials at [facility] please call the [facility] for Brain [facility] Research Line at [phone], leave a message and one of our staff will contact you. documented in this encounter [facility] 08-11-2023 History of Present illness Narrative [facility] SUBJECTIVE: Miriam Davenport is a 83 year old female with a pertinent PMH as listed below who presents for a cognitive screening and assessment of modifiable risk factors of cognitive decline. Consultation requested by Comfort Patterson APRN.CUSTOMER INSIGHT ANALYST for an opinion regarding Miriam Davenport. My final recommendations will be communicated back to the referring provider by way of shared medical record. Accompanied by: Hardy, dtr HPI: Shelley is concerned about her memory [...] be coming home soon. Hardy lives in [place] and comes 2x/month to help out. She [...] activity None Social history: Home: lives in [place] ( is in SNF) Work: retired at age 80 from [employer] Education: 15 years Alcohol: none Supplements: iron, 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 MORBID OBESITY 08/18/2007 Obstructive sleep apnea Sleep study 2003 Occlusion and stenosis of carotid artery without mention of cerebral infarction 03/09/2006 mild stenosis shown on u/s at [facility] u/s repeated 02/02/07 with no [...] for infectious vulvitis Blood-Glucose Meter,Continuous (DEXCOM G7 BURN TABLE OPERATOR) [facility] [place] to check sugars Blood-Glucose Sensor (DEXCOM [...] Speech: normal speech Ambulating with a walker. [place] Cognitive Assessment (MoCA) Visuospatial/Executive: 4 Namin Attention: 4 Language: 2 Abstraction: 2 Delayed Memory: 2 Orientation: 5 Education < or equal to 12 years (1 is true, 0 is false): 0 [place] Cognitive Assessment (MoCA): 22 Score of 26 [...] benefit from the Brain Health and Wellness [facility] to learn the tools to protect against cognitive decline and improve working memory. The [facility] will provide education on the evidence-based aspects of a healthy lifestyle that can positively impact cognitive function (nutrition, physical activity, restorative sleep, stress management). Assessments completed in clinic today will be scanned into the medical record. (G31.84) Mild cognitive impairment (primary encounter diagnosis) Comment: MOCA Plan: CONSULT TO GERIATRICS, CONSULT TO BRAIN HEALTH & WELLNESS [facility] Today we reviewed: Modifiable risk factors of cognitive decline Referrals: Brain Health and Wellness [facility] Geriatrics Successful Aging Program Lifestyle recommendations [...] games are available on the following websites: iCracked, StepOut, and Medical Simulation. - Practice meditation or deep breathing for a few minutes each day. You can sit quietly and focus on your breath or listen to a guided meditation on an madhavi such as Lucidworks. - Resources provided including information on memory research at the . (G47.33) ASIM (obstructive sleep apnea) Comment: untreated Plan: She declines referral to sleep medicine and does not want to address this now. Discuss at a future visit. Return after [facility] I spent 65 minutes in jbbj-vh-eltr time with the patient of which greater than 50% of the time was spent in counseling and coordination of care. Martha Germain DO, MPH Wellness and Preventive Medicine [facility] CC: Comfortmigel Patterson [id number] [facility] [id number] documented in this encounter [facility] 08-02-2023 History of Present illness Narrative Patient presents for B-12 injection. Denies any problems at this time. Patient instructed on any SE of medication, verbalized understanding and agreed to proceed with treatment. Tolerated injection well. 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 documented in this encounter [facility] 07-29-2023 Instructions Milla Lara RN - [...] Radha Walters MD documented in this encounter [facility] 07-29-2023 History of Present illness Narrative 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 MORBID OBESITY 08/18/2007 Obstructive sleep apnea Sleep study 2003 Occlusion and stenosis of carotid artery without mention of cerebral infarction 03/09/2006 mild stenosis shown on u/s at [facility] u/s repeated 02/02/07 with no [...] a day for infectious vulvitis Blood-Glucose Meter,Continuous (DEXFetch It G7 BURN TABLE OPERATOR) [facility] [place] to check sugars Blood-Glucose Sensor (DEXCOM [...] Past Histories independently gathered by the clinical desktop support technician and the remaining scribed note accurately describes my personal service to the patient. I spent a total of 30 minutes on the date of the service which included preparing to see the patient, [id number] patient care, completing clinical documentation, obtaining and/or [...] Walters MD' 08/11/23 documented in this encounter [facility] 07-21-2023 History of Present illness Narrative [...] PATIENT PRESENTS WITH AN IMPLANTABLE OR ATTACHED REGISTERED NURSE BEHAVIORAL HEALTH: No RADIOLOGY DEPARTMENT: Mammography PERIPHERAL IV DATA: Not applicable SIGNED BY: RT Chioma(R) July 21, 2023 3:33 PM documented in this encounter [facility] 07-08-2023 History of Present illness Narrative 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 MORBID OBESITY 08/18/2007 Obstructive sleep apnea Sleep study 2003 Occlusion and stenosis of carotid artery without mention of cerebral infarction 03/09/2006 mild stenosis shown on u/s at [facility] u/s repeated 02/02/07 with no [...] 473 mL 11 Blood-Glucose Meter,Continuous (DEXCOM G7 BURN TABLE OPERATOR) [facility] (Patient not [...] mcg INTRAMUSCULAR q 1 MONTH Josefa Caputo APRN.WOOD BOAT BUILDER SUPERVISOR 1,000 mcg at 07/05/23 1336 perflutren lipid [...] Abs Lymph 1.00 - 4.00 k/uL 1.90 Boone% % 8.5 Abs Boone <0.87 k/uL 0.78 Eosin% % 2.0 Abs [...] Rajiv Walker MD documented in this encounter [facility] 07-07-2023 Miscellaneous Notes Called pt and [...] orders are signed. documented in this encounter [facility] 06-25-2023 Instructions Nhi De La Torre [...] in 1 year. documented in this encounter [facility] 06-25-2023 History of Present illness Narrative Images from the original note were not included. [facility] [place] [facility] Department of Cardiovascular Medicine SECTION [...] II - Controlled S/p PE, multiple - [facility] 2020 with recurrence after stopping AC per patient - continue On apixaban 5 mg BID ASIM - No tx declines CPAP - likely contributing to her SOB I spent a total of 30 minutes on the date of the service which included preparing to see the patient, [id number] patient care, completing clinical documentation, performing a [...] to the follow up. 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 Blood-Glucose Meter,Continuous (DEXCOM G7 BURN TABLE OPERATOR) [facility] use to check sugars (Patient not taking: [...] INTRAVENOUS DIRECTED PRN documented in this encounter [facility] 05-14-2023 History of Present illness Narrative This note was created using Grid[employer]ain Systems. 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 Blood-Glucose Meter,Continuous (DEXCOM G7 BURN TABLE OPERATOR) misc use to check sugars (Patient [...] know if decide wants referral for Brain [facility] evaluation 2. Vitamin D deficiency E55.9 [...] ARTIS SCREENING 6. Encounter for immunization Z23 mimoOn COVID-19 VACCINE (2022- SEASON) AGE 12+ YR [...] noted above, will pursue consult to [facility] [employer] [facility] for cognitive testing, etc. Guillaume Dominguez MD documented in this encounter [facility] 05-04-2023 History of Present illness Narrative Patient presents for B-12 injection. Denies any problems at this time. Patient instructed on any SE of medication, verbalized understanding and agreed to proceed with treatment. Tolerated injection well. Ning Mckeon LPN documented in this encounter [facility] 03-30-2023 Instructions Curtis Nassar MD - [...] Curtis Nassar MD documented in this encounter [facility] 03-30-2023 History of Present illness Narrative Virtual Visit utilizing both audio and video components FaceTtod I have communicated my name and active licensure. The patient's identity and physical location were verified at the time of this visit. Either the patient or their legal food service sales representatives has been informed of the risks and [...] Nassar MD Data Review daughter Hardy has iPhone=FaceTEx[employer] inTouch ([phone]) History Diabetes type 2, dx 1990 last eye exam November, had cataract surgery, no DM eye disease December 2022, though has early macular degen no hx [place], stroke, claudication, intolerant of statins, niacin and [...] x 3. 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 Tape [Other] documented in this encounter [facility] 03-18-2023 Miscellaneous Notes Okayed Patient last visit with PCP 02/02/23 Follow up appointment scheduled 05/14/23 Rayne Winter Ma documented in this encounter [facility] 03-04-2023 History of Present illness Narrative Patient presents for B-12 injection. Denies any problems at this time. Patient instructed on any SE of medication, verbalized understanding and agreed to proceed with treatment. Tolerated injection well. Ning Mckeon LPN documented in this encounter [facility] 02-19-2023 Miscellaneous Notes Patient reports she [...] Shea Chisholm RN documented in this encounter [facility] 02-04-2023 History of Present illness Narrative Patient presents for B-12 injection. Denies any problems at this time. Patient instructed on any SE of medication, verbalized understanding and agreed to proceed with treatment. Tolerated injection well. Rechecked BP today d/t very low reading at office visit 02/02/23. Patient states that she feels better. Ning Mckeon LPN documented in this encounter [facility] 02-02-2023 History of Present illness Narrative [...] capsule by mouth once daily. 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 MINOR Perez documented in this encounter [facility] 02-02-2023 Miscellaneous Notes Patient scheduled for nurse visit 02/04/23 to receive B-[address]. [address] new administration order at this time. Ning Mckeon LPN documented in this encounter [facility] 01-28-2023 History of Present illness Narrative [...] Discontinued PROCEDURE TYPE: NM Stress: 16.0 mCi [id number] was administered IV for Rest Imaging at 08:10 by . 46.4 mCi [id number] was administered IV for Stress Imaging at 09:17 by . PATIENT DISCHARGED TO: Ambulatory patient, left [place] department area. A Diagnostic radioactive procedure has taken place, with no further precautions necessary other than routine body substance precautions. More information regarding radiation safety can be found using this link: [email or web address] SIGNATURE: HELENA Julien PATIENT NAME: Miriam Davenport DATE: January 28, 2023 TIME: 9:31 AM PAGER/CONTACT #: documented in this encounter [facility] 01-27-2023 Miscellaneous Notes Spoke with patient regarding reminder for stress test tomorrow and given instructions. documented in this encounter [facility] 01-13-2023 Miscellaneous Notes Form rec'd from [facility] asking directions for pt's anticoagulant. Pcp noted pt can hold anticoagulant 2 days prior to extraction then resume day after extraction. This was faxed back to the number on the form. documented in this encounter [facility] 01-11-2023 History of Present illness Narrative Images from the original note were not included. 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 CARDIAC: [place] palpable in the 5th intercostal space mid [...] patient event(s). Isolated SVEs were frequent (17.7%, [id number]), SVE Couplets were occasional (4.2%, 56920), and SVE Triplets were occasional (1.8%, 71870). Isolated VEs were rare (<1.0%), VE Couplets [...] BB DM II Controlled S/p PE, multiple [facility] 2020 with recurrence after stopping AC per [...] DO, FACC, FCCP, FACOI Maykel Whitfield DO, FACC, FCCP, FACOI CC: Guillaume Dominguez [address] [place] [address] documented in this encounter [facility] 01-08-2023 Miscellaneous Notes Patient's daughter notified. Geno Franco RN Rx e-scripted to preferred pharmacy Please notify daughter Hardy at [phone] Message has been routed to provider and [...] her mother, then set it up Hardy [phone] Thank you Veda Cardoza The DME company said that the CGM order should go to [facility]. Order pended below Maia Llanos RN Patients daughter Hardy calling in stating that Dexcom needs to be sent to [facility]. Hardy is asking for a return call to discuss Dexcom Please call Hardy back at [phone] Thank you documented in this encounter [facility] 01-04-2023 History of Present illness Narrative Patient presents for B-12 injection. Denies any problems at this time. Patient instructed on any SE of medication, verbalized understanding and agreed to proceed with treatment. Tolerated injection well. 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 Tape [Other] documented in this encounter [facility] 12-25-2022 Miscellaneous Notes Received voicemail 12-25-22 at 9:49 AM Hi this is Shelley Davenport calling [phone]. I have a procedure scheduled for December [...] I'd really appreciate it. Thank you. Miguel A." Call back to patient to advise that she should hold Eliquis 48 hours prior to procedure. Reviewed pre procedure instructions. Patient is diabetic but does not take insulin. Advised that patient should check sugar and call surgery scheduling if sugar is above 200. If above 250, procedure would not be performed. Patient verbalizes understanding. Offered to send pre procedure instructions via Trendyta but she states she has had trouble logging in. documented in this encounter [facility] 12-04-2022 Miscellaneous Notes [facility] called and states needs a script [...] Earline Morales LPN documented in this encounter [facility] 11-06-2022 History of Present illness Narrative [...] to 11/06/2022 and treatment included: Therapeutic exercise, Self-detention management, and Gait training. Goals for Episode of Care: created on 08/18/22 through 09/29/22 updated 09/17/22 Goals updated on 09/29/2022 through 11/03/22 Goals updated on 11/06/2022. [place] in home exercise program. -- PARTIALLY MET [...] Nhi Iverson PT documented in this encounter [facility] 11-03-2022 Miscellaneous Notes Patient scheduled with Oralia Garcia CNP in office on 11/06/2022 [place] patient was in to the office today. [...] pain is persistent? documented in this encounter [facility] 11-03-2022 History of Present illness Narrative Patient presents for B-12 injection. Denies any problems at this time. Patient instructed on any SE of medication, verbalized understanding and agreed to proceed with treatment. Tolerated injection well. 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 Osteopenia - 04/20/2008 Comment: 2012 t score -1.7 at [facility] Contact Dermatitis and Other Eczema, Due to Unspecified Cause - 12/07/2007 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 Anxiety State - 07/28/2007 Pernicious Anemia - 04/13/2007 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 Please review and advise. Lety Lam documented in this encounter [facility] 10-12-2022 History of Present illness Narrative [...] seated lumbar flexion repeated rolling [facility] (low back pain reduces to 8/10 [...] Nhi Iverson PT documented in this encounter [facility] 10-02-2022 Miscellaneous Notes Letter generated and sent via fax at this time to patient's PCP for approval to hold Eliquis 2 days PRIOR to procedure documented in this encounter [facility] 09-29-2022 History of Present illness Narrative Patient presents for B-12 injection. Denies any problems at this time. Patient instructed on any SE of medication, verbalized understanding and agreed to proceed with treatment. Tolerated injection well. Ning Mckeon LPN documented in this encounter [facility] 09-26-2022 Miscellaneous Notes Patient scheduled in December in [place] with Dr Whitfield. 1st attempt to reach patient. Left message for patient to call office to schedule sooner appointment in Cardiology per PCP. Patient can be seen in [place] by Dr Horowitz or [facility] [phone] Should be seen sooner since she has been symptomatic :Patient scheduled with Dr. Whitfield's first available consult on 01/11. Please advise if that is too far out. documented in this encounter [facility] 09-25-2022 Miscellaneous Notes Patient has been [...] Hope Delio Pss documented in this encounter [facility] 09-23-2022 Miscellaneous Notes Patient has been [...] you. Chely Erickson LPN Pharmacy verified in [facility] Patient has been identified by name and [...] Atkinson Pss \\ documented in this encounter [facility] 09-23-2022 History of Present illness Narrative [...] 2022 12:04 PM documented in this encounter [facility] 09-17-2022 History of Present illness Narrative [...] created on 08/18/22 through 09/29/22 updated 09/17/22 [place] in home exercise program./ partially achieved Patient [...] Patient to be seen for Therapeutic exercise (64250), Neuromuscular re-education (81762), Manual therapy (54959), Self-detention management (84314), Patient/Family/Caregiver Education, Gait Training (35135) PLAN FOR NEXT VISIT: Continue to work [...] house throughout the day. 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 Pain: Pain Pain Level: 4 Pain Location: [...] Veda Vital PT documented in this encounter [facility] 09-14-2022 History of Present illness Narrative [facility] Date: September 14, 2022 - 10:26 AM Chief Complaint: left lower back __ SUBJECTIVE: Ms. Davenport presents to the [facility] for a follow up appointment [...] is not currently receiving medications through the [facility]. 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 1. [...] your PCP/referring physician. documented in this encounter [facility] 09-11-2022 Miscellaneous Notes Patient returned call [...] team to assist documented in this encounter [facility] 09-10-2022 History of Present illness Narrative [...] PTA/Veda Vital PT documented in this encounter [facility] 09-03-2022 History of Present illness Narrative [...] Veda Vital PT documented in this encounter [facility] 09-01-2022 History of Present illness Narrative [...] Veda Vital PT documented in this encounter [facility] 09-01-2022 History of Present illness Narrative Patient presents for B-12 injection. Denies any problems at this time. Patient instructed on any SE of medication, verbalized understanding and agreed to proceed with treatment. Tolerated injection well. Ning Mckeon LPN documented in this encounter [facility] 08-26-2022 Miscellaneous Notes Spoke with patient on phone. Aware the office visit from 08/15/22 is closed and she can access via Trendyta. Patient requesting copy be printed and sent to her, address checked and correct. Patient inquiring as to whether Cardiology Consult could be scheduled sooner than December, her daughter worried about her waiting that long. Patient may agree to go to [place] if can schedule sooner. Patient aware staffing [...] after visit summary. Unable to access her [employer]. Asking office to please take her after visit summary to the front office developer and call her for berry picker. documented in this encounter [facility] 08-19-2022 History of Present illness Narrative [...] of Care: created on 08/18/22 through 09/29/22 [place] in home exercise program. Patient will decrease [...] Planned: 8 Planned Treatment Interventions: Therapeutic exercise (97757), Neuromuscular re-education (86724), Manual therapy (87402), Self-detention management (57361), Gait Training (25528), Patient/Family/Caregiver Education PLAN FOR NEXT VISIT: Will [...] Veda Vital PT documented in this encounter [facility] 08-15-2022 Instructions Guillaume Dominguez MD - [...] going to lab) documented in this encounter [facility] 08-15-2022 History of Present illness Narrative This note was created using [employer]. Subjective Miriam Davenport is a 82 year [...] Sinus issues with allergies acting up. Noemy [place] at night helps. Does have occasion wheezing--new. 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 FIEDL (dyspnea on exertion) R06.09 ECG COMPLETE CONSULT [...] the date of the service which included [id number] patient care, completing clinical documentation, obtaining and/or reviewing separately obtained history, performing a medically appropriate examination, counseling and educating the patient/family/caregiver, ordering medications, tests, or procedures, communicating with other HCPs (not separately reported), and independently interpreting results (not separately reported). Guillaume Dominguez MD documented in this encounter [facility] 08-12-2022 Miscellaneous Notes Spoke to pt and scheduled There is already a PT order in from Dr. Montelongo, please call patient to schedule Arelis Monahan APRN.CNP Patient calls and state that she was given physical therapy referral to [facility] by pain management. Patient states that she went to [facility] and did not like physical therapy. Patient states that she would like to go to [facility] for Physical Therapy. Patient asking if provider can write a referral to physical therapy so that she can go to [facility]? Patient also reports that she has been [...] Tabitha Madrid RN documented in this encounter [facility] 08-12-2022 Miscellaneous Notes Opened in Error documented in this encounter [facility] 08-07-2022 Miscellaneous Notes Pharmacy request refi Last OV 06/10/22 Next 10/23/22 Requested Prescriptions Pending Prescriptions Disp Refills blood sugar diagnostic (ACCU-CHEK POLY PLUS TEST STRP) test strip 100 Each 11 Sig: Check sugars 3 times daily Please review and advise. Renu Ference, RN documented in this encounter [facility] 08-04-2022 Miscellaneous Notes PT location contacted at this time Fax number to send order: [phone] PT order sent via fax at this [...] to be sent to [facility] in [place] Instructed patient to wait until tomorrow to [...] patient to discuss documented in this encounter [facility] 08-04-2022 History of Present illness Narrative Patient presents for B-12 injection. Denies any problems at this time. Patient instructed on any SE of medication, verbalized understanding and agreed to proceed with treatment. Tolerated injection well. Ning Mckeon LPN documented in this encounter [facility] 08-03-2022 Miscellaneous Notes Printed and mailed to patient's home address. Can we please print and resend this one too? Thanks! Pt called in and lost the letter/prescription for the handicap sticker that was given to her on 03-21-22. Requesting a new one be mailed to her. Marquita Mclaughlin LPN documented in this encounter [facility] 07-07-2022 History of Present illness Narrative Patient presents for B-12 injection. Denies any problems at this time. Patient instructed on any SE of medication, verbalized understanding and agreed to proceed with treatment. Tolerated injection well. Ning Mckeon LPN documented in this encounter [facility] 07-07-2022 History of Present illness Narrative This note was created using appirisriter. 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 MORBID OBESITY 08/18/2007 Obstructive sleep apnea Sleep study 2003 Occlusion and stenosis of carotid artery without mention of cerebral infarction 03/09/2006 mild stenosis shown on u/s at [facility] u/s repeated 02/02/07 with no [...] Guillaume Dominguez MD documented in this encounter [facility] 07-02-2022 Miscellaneous Notes Wednesday07/04/22 is not [...] Marquita Mclaughlin LPN documented in this encounter [facility] 06-23-2022 Miscellaneous Notes Patient contacted office [...] time Closing encounter documented in this encounter [facility] 06-18-2022 Miscellaneous Notes Called and spoke [...] possible side effects. Please advise. Contact Information [phone] Thank you Veda Cardoza documented in this encounter [facility] 06-18-2022 Miscellaneous Notes Called patient and [...] Tabitha Madrid RN documented in this encounter [facility] 06-11-2022 Instructions Maykel Patel Jr., MD - 06/11/2022 11:52 AM EST Counseled patient on increasing fluids, avoiding salt, avoiding caffeine, avoiding large portions of animal fat/meats at one time and increasing citrates in diet. documented in this encounter [facility] 06-11-2022 Procedure note CYSTOSCOPY PROCEDURE NOTE: Miriam Davenport is a 82 year old female who presents with left side ureteral stent for a cystoscopy, left side ureteral stent removal Pt ID verified with patient: Yes Fire risk assessment done Procedure verified with patient: Yes Procedure confirmed with physician and desktop support technician: Yes UNIVERSAL PROTOCOL / SAFETY CHECKLIST Procedure [...] Patel Jr, MD documented in this encounter [facility] 06-03-2022 Miscellaneous Notes Received voicemail 06-03-22 at 3:24 PM. Ne this is Shelley Davenport calling, [phone]. My birthday is 44. I'm calling about my back. It's very very painful and I really need to have help with it. Thank you very much. Bye." Forwarded to Dr. Montelongo's clinical staff. JESSICA Nunes, RN June 03, 2022 4:27 PM documented in this encounter [facility] 05-29-2022 Miscellaneous Notes Pt added to schedule for stent removal. Will call when home from hospital to confirm. Natalya MCINTYRE [facility] or 05/29/22 Cysto stent removal in office 1-2 weeks documented in this encounter [facility] 05-28-2022 Miscellaneous Notes OK, wonderful. Patient aware. Closing. Show up to surgery Patient calling and she was wanted to see what Urine Culture result from 05-26-2022 showed. Aware of this result: Culture No growth (<1,000 CFU/ml) Resulting Agency: [facility] I advised that Surgery still on for tomorrow and she just was checking to make sure. If she needs to do anything else please advise. documented in this encounter [facility] 05-12-2022 History of Present illness Narrative This note was created using [employer]. Subjective Miriam Davenport is a 82 year old female. 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 documented in this encounter [facility] 05-06-2022 Miscellaneous Notes Seen in today. [...] any other symptoms?" NO Protocols used: Finger [id number] documented in this encounter [facility] 05-06-2022 Instructions Janae Sandoval APRN.WOOD BOAT BUILDER SUPERVISOR - 05/06/2022 4:12 PM EST ASSESSMENT/PLAN: 1. Crushing injury of right middle finger, initial encounter - ICD9: 927.3, ICD10: S67.192A (primary diagnosis) - XR DIGIT GENERAL 3V FRONTAL/LAT/OBL RIGHT Radiologist IMPRESSION: Acute, comminuted fracture of the third distal phalanx subungual tuft. Industrial Education Instructor: KOLE Transcribe Date/Time: May 06 2022 4:13P [...] Discussed expected course of illness Janae Sandoval APRN.WOOD BOAT BUILDER SUPERVISOR FRACTURES GENERAL INFORMATION: A fracture is a [...] wet, it can be dried with a unhairing inspector. 4. Do not put pressure on any [...] under the cast. 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 Industrial Education Instructor: KOLE Transcribe Date/Time: May 06 2022 4:13P [...] Discussed expected course of illness Janae Sandoval APRN.WOOD BOAT BUILDER SUPERVISOR documented in this encounter [facility] 05-04-2022 History of Present illness Narrative Patient presents for B-12 injection. Denies any problems at this time. Patient instructed on any SE of medication, verbalized understanding and agreed to proceed with treatment. Tolerated injection well. Ning Mckeon LPN documented in this encounter [facility] 04-29-2022 History of Present illness Narrative [facility] Date: April 29, 2022 - 8:24 AM Chief Complaint: left sided back pain __ SUBJECTIVE: Ms. Davenport presents to the [facility] for a follow up appointment [...] is currently receiving medications (tizanidine) through the [facility]. 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 documented in this encounter [facility] 04-28-2022 History of Present illness Narrative PULM FUNCTION SMARTBLOCK: Provider: Guillaume Dominguez MD Assisting Tech: KELSI Carias Spirometry: 1 LV - Box: 1 documented in this encounter [facility] 04-27-2022 History of Present illness Narrative This note was created using [employer]. 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 [...] (BMI) of 39.0 to 39.9 in adult ([facility]) E66.01 Z68.39 Weight has trended down though up after .Keep up efforts at healthier diet and try to increase activity--planning to go to [facility] for exercise 14. History of Jordin-en-Y gastric [...] Guillaume Dominguez MD documented in this encounter [facility] 04-10-2022 Miscellaneous Notes Called patient and scheduled. Patient left voicemail 04/09/2022 at 1257 Patient states she is S/P RFA 14 days and is still having significant pain This RN recommends patient to schedule follow up with Dr. Montelongo to discuss care Will forward to clerical team to assist with scheduling follow up with Dr. Montelongo documented in this encounter [facility] 04-08-2022 History of Present illness Narrative [...] 2022 12:24 PM documented in this encounter [facility] 04-06-2022 History of Present illness Narrative Patient presents for B-12 injection. Denies any problems at this time. Patient instructed on any SE of medication, verbalized understanding and agreed to proceed with treatment. Tolerated injection well. Ning Mckeon LPN documented in this encounter [facility] 03-27-2022 Miscellaneous Notes Handicap Placard mailed [...] Anne Jennings RN documented in this encounter [facility] 03-24-2022 Miscellaneous Notes Requester: Patient Patients [...] No need to notify patient. [id number] Isabel Brothers Pss documented in this encounter [facility] 03-19-2022 Miscellaneous Notes Called patient in regards to message below. Message was sent to patient via [employer] on 03/10/2022, but was not read. I [...] it use for documented in this encounter [facility] 03-11-2022 History of Present illness Narrative SUBJECTIVE: Mir[facility] [...] activity was identified. 03/11/2022 by Oralia Garcia APRN.WOOD BOAT BUILDER SUPERVISOR Narcotic Agreement reviewed and signed?: N/A on [...] which included preparing to see the patient, [id number] patient care, completing clinical documentation, performing a medically appropriate examination, and ordering medications, tests, or procedures. The above plan and management options were discussed at length with patient. Patient is in agreement with the above and verbalized understanding. 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 I spent a total of 25 minutes on the date of the service which included preparing to see the patient, [id number] patient care, completing clinical documentation, obtaining and/or [...] Radha Walters MD documented in this encounter [facility] 03-02-2022 History of Present illness Narrative Patient presents for B-12 injection. Denies any problems at this time. Patient instructed on any SE of medication, verbalized understanding and agreed to proceed with treatment. Tolerated injection well. Pt to also receive COVID booster. Ning Mckeon LPN documented in this encounter [facility] 02-27-2022 Miscellaneous Notes Patient left voicemail 02/26/2022 Patient states that she had sacroiliac block with Dr. Montelongo on 02/17/2022 Patient states by the the evening of 02/20/2022, her pain was back Will need to obtain percentage of improvement during the time it was working as the local anesthetic wore of by the evening of 02/20/2022 documented in this encounter [facility] 02-16-2022 Miscellaneous Notes Patient contacted at this time Patient states she is having chest pain for the last 10 minutes or so. Similar to when she found out she had a blood clot last time Patient instructed to proceed to the ER Patient agrees and will be going to [place] [facility] Patient to contact office if she needs to cancel procedure for tomorrow 02/17/2022 Patient called to report that she stopped taking Eliquis in preparation for her procedure tomorrow, but is now experiencing subtle chest pain. Transferred patient to triage nurse line. Also copying Dr. Montelongo and clinical staff to this encounter. Please advise, Awilda Tate documented in this encounter [facility] 02-10-2022 Instructions Guillaume Dominguez MD - [...] some veggies in. documented in this encounter [facility] 02-10-2022 History of Present illness Narrative This note was created using [employer]. 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 Patient tolerated both injections. documented in this encounter [facility] 02-05-2022 Miscellaneous Notes Patient contacted via [...] as possible. Patient can be reached at [phone]. Thank you. Miriam Byrd documented in this encounter [facility] 02-04-2022 Miscellaneous Notes Patient notified Typically [...] Tabitha Madrid RN documented in this encounter [facility] 02-04-2022 Miscellaneous Notes Pt called back [...] please let me know. Thank you. Miguel A." Call back to patient. Advised that she [...] 2022 9:45 AM documented in this encounter [facility] 01-29-2022 Miscellaneous Notes Patient scheduled for nurse visit 02/06/22 to receive B-[address]. [address] new administration order at this time. Ning Mckeon LPN documented in this encounter [facility] 01-19-2022 Instructions Comfort Patterson APRN.CUSTOMER INSIGHT ANALYST - 01/19/2022 3:15 PM EDT Take one iron pill daily, take with food. 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 MORBID OBESITY 08/18/2007 Obstructive sleep apnea Sleep study 2003 Occlusion and stenosis of carotid artery without mention of cerebral infarction 03/09/06 mild stenosis shown on u/s at [facility] u/s repeated 02/02/07 with no [...] in dosing 5mg BID indefinitely Comfort Patterson APRN.CUSTOMER INSIGHT ANALYST Medical Decision Making: Problems: Moderate: 1+ chronic illnesses with change Data: Unique test(s) ordered: 1 Risk: Moderate: Drug management Medical Decision Making Level: 4 - Moderate documented in this encounter [facility] 01-05-2022 History of Present illness Narrative Patient presents for B-12 injection. Denies any problems at this time. Patient instructed on any SE of medication, verbalized understanding and agreed to proceed with treatment. Tolerated injection well. Ning Mckeon LPN documented in this encounter [facility] 12-17-2021 Instructions Sasha Hurley APRN.WOOD BOAT BUILDER SUPERVISOR - 12/17/2021 2:27 PM EDT keflex for 7 days Tylenol/ibuprofen as needed for discomfort AZO otc Increase hydration -Follow up with PCP or return to clinic if symptoms not improving in 3 days or if you develop any new (or worsening) symptoms such as fever, chills or back pain go to ER. documented in this encounter [facility] 12-17-2021 History of Present illness Narrative Subjective The history is provided by the patient. No diplomatic interpreter/translator was used. 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 MORBID OBESITY 08/18/2007 Obstructive sleep apnea Sleep study 2003 Occlusion and stenosis of carotid artery without mention of cerebral infarction 03/09/06 mild stenosis shown on u/s at [facility] u/s repeated 02/02/07 with no change Pure hypercholesterolemia Type II or unspecified type diabetes mellitus with renal manifestations, uncontrolled(250.42) Unspecified glaucoma(365.9) Unspecified pruritic disorder I have confirmed and edited as necessary, the [facility] Review of Systems Constitutional: Negative for chills [...] 4 - Moderate documented in this encounter [facility] 12-15-2021 Miscellaneous Notes Patient notified of [...] Marquita Mclaughlin LPN documented in this encounter [facility] 12-04-2021 Miscellaneous Notes Patient returning call from [facility], is requesting a call back at [phone]. Patient states she will not be home [...] Isabel Orlando RN documented in this encounter [facility] 11-03-2021 History of Present illness Narrative Patient presents for B-12 injection. Denies any problems at this time. Patient instructed on any SE of medication, verbalized understanding and agreed to proceed with treatment. Tolerated injection well. Ning Mckeon LPN documented in this encounter [facility] 11-03-2021 Nurse Note EVENT MONITOR DISPOSABLE PATCH INSTRUCTIONS Patient Name: Miriam Davenport [facility] Number: [id number] Skin prepped and cleansed with alcohol Patch secured to prepped area Monitor Activated Serial #: [id number] Patient Instructed: 1.) Prescribed order timeframe 2.) Bathing guidelines 3.) Usage of event button and diary documentation 4.) Return of monitor at the end of prescribed order 5.) Call with problems [phone] or [phone] ext. [phone] Patient expresses a good understanding of instructions Gifty Singh documented in this encounter [facility] 11-03-2021 History of Present illness Narrative [...] going to sit on the toilet. Landed detention on the toilet and scraped her left [...] y/o referred to the EP clinic at [place] for frequent PACs. Patient presents with no complaints. There is a report of significant FIELD - however the patient attributes this to her weight and lack of conditioning. She is unaware of the SVE. Review of her EKGs available in [facility] suggests frequent SVE developed around 2019 - [...] may have occurred. Gamaliel Alegre MD Pager: [phone] Office: [phone] I personally examined the patient and repeated [...] medical regimen Referring Physician: Guillaume Dominguez [address] [place] [address] Comfort Patterson [address] [facility] [id number] documented in this encounter [facility] 10-22-2021 Miscellaneous Notes Okayed MALGORZATA: 10/03/2021 [...] patient. Marline Milton documented in this encounter [facility] 10-22-2021 Miscellaneous Notes Okayed MALGORZATA: 10/03/2021 [...] Liz Frank Pss documented in this encounter [facility] 10-08-2021 Miscellaneous Notes Echo scheduled for 10/13/21. Cardio appt 11/03/21. Kandy Brady Ma Patient returned call and went over notes from Dr Soto and Comfort Patterson CHEMICAL RADIATION TECHNICIAN with understanding. Patient wrote down instructions, she had already stopped the iron some time ago. Assisted with transfer to retail area manager to get Cardiology consult and ECHO set [...] labs still pending. documented in this encounter [facility] 10-07-2021 Miscellaneous Notes Called and spoke with patient. Scheduled with Dr Montelongo on 10/24/21. Patient left voicemail stating she is experiencing severe pain with her back and hip. Patient states it is hard for her to function. Patient has not been seen in office since 09/16/2020 Recommend follow up with provider documented in this encounter [facility] 10-06-2021 Miscellaneous Notes seen by Dr [...] Ellie Downing LPN documented in this encounter [facility] 10-03-2021 History of Present illness Narrative [...] IV DATA: Not applicable SIGNED BY: RT oBla(R) October 03, 2021 4:15 PM documented in this encounter [facility] 10-03-2021 History of Present illness Narrative [...] going to sit on the toilet. 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 MORBID OBESITY 08/18/2007 Obstructive sleep apnea Sleep study 2002 Occlusion and stenosis of carotid artery without mention of cerebral infarction 03/09/06 mild stenosis shown on u/s at [facility] u/s repeated 02/02/07 with no [...] BP Position BP Site BP Cuff Size 10/03/218 107/75 95 -- -- Standing -- -- 10/03/217 110/69 52 -- -- Sitting -- -- 10/03/216 119/75 75 -- -- Supine -- -- 10/03/211431 -- -- 126/68 60 -- -- -- [...] Iban Soto MD documented in this encounter [facility] 09-22-2021 Miscellaneous Notes Addended by: JOSE GORDON on: 09/22/2021 11:10 AM Modules accepted: Orders Patient has been identified by name and date of : Yes Pending Prescriptions Disp Refills GABAPENTIN 300 MG CAPSULE 90 capsule 11 Sig: one in morning, two at bedtime LISSA: No RX INSTRUCTIONS: Patient aware RX will be sent to pharmacy. No need to notify patient. [facility] [phone] Jose Gordon documented in this encounter [facility] 09-22-2021 Miscellaneous Notes Patient has been [...] (253 lb) Please advise. Thank you. Tabitha Wurst, RN documented in this encounter [facility] 09-01-2021 History of Present illness Narrative Patient presents for B-12 injection. Denies any problems at this time. Patient instructed on any SE of medication, verbalized understanding and agreed to proceed with treatment. Tolerated injection well. Ning Mckeon LPN documented in this encounter [facility] 08-22-2021 Instructions Curtis Nassar MD - 08/22/2021 2:55 PM EDT Assessment / Plan Assessment: 1) Diabetes type 2, sugars going low before lunch after taking 8mg glimepiride in AM. I'll ask her to drop to 4, 2, 1mg then stop all based on if sugars <100. 2) Peripheral neuropathy, hasn't been bothering her as much, is on [id number], 1 in AM, 2 in PM. I [...] Curtis Nassar MD documented in this encounter [facility] 08-22-2021 Nurse Note Images from the original note were not included. documented in this encounter [facility] 08-22-2021 History of Present illness Narrative Assessment / Plan Assessment: 1) Diabetes type 2, sugars going low before lunch after taking 8mg glimepiride in AM. I'll ask her to drop to 4, 2, 1mg then stop all based on if sugars <100. 2) Peripheral neuropathy, hasn't been bothering her as much, is on [id number], 1 in AM, 2 in PM. 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 Tape [Other] documented in this encounter [facility] 01-05-2019 History of Past i llness [...] of this encounter (statuses as of 08/22/2021) [facility] History of Past illness Narrative* Problem [...] of this encounter (statuses as of 09/01/2021) [facility] of Past [facility] Narrative* Problem [...] of this encounter (statuses as of 09/22/2021) [facility] of [facility] Narrative* Problem [...] of this encounter (statuses as of 10/06/2021) [facility] of [facility] Narrative* Problem [...] of this encounter (statuses as of 10/07/2021) [facility] of [facility] Narrative* Problem [...] of this encounter (statuses as of 10/08/2021) [facility] Narrative* Problem [...] of this encounter (statuses as of 10/09/2021) [facility] Narrative* Problem [...] of this encounter (statuses as of 10/22/2021) [facility] Narrative* Problem [...] of this encounter (statuses as of 10/22/2021) [facility] Narrative* Problem [...] of this encounter (statuses as of 10/30/2021) [facility] Narrative* Problem [...] of this encounter (statuses as of 11/03/2021) [facility] Narrative* Problem [...] of this encounter (statuses as of 11/03/2021) [facility] Narrative* Problem [...] of this encounter (statuses as of 12/04/2021) [facility] Narrative* Problem [...] of this encounter (statuses as of 12/05/2021) [facility] Narrative* Problem [...] of this encounter (statuses as of 12/15/2021) [facility] Narrative* Problem [...] of this encounter (statuses as of 12/17/2021) [facility] Narrative* Problem [...] of this encounter (statuses as of 01/05/2022) [facility] Narrative* Problem [...] of this encounter (statuses as of 01/05/2022) [facility] Narrative* Problem [...] of this encounter (statuses as of 01/12/2022) [facility] Narrative* Problem [...] of this encounter (statuses as of 01/19/2022) [facility] Narrative* Problem [...] of this encounter (statuses as of 01/29/2022) [facility] Narrative* Problem [...] of this encounter (statuses as of 02/04/2022) [facility] Narrative* Problem [...] of this encounter (statuses as of 02/04/2022) [facility] N[facility]* Problem [...] of this encounter (statuses as of 02/05/2022) [facility] N[facility]* Problem [...] of this encounter (statuses as of 02/10/2022) [facility]* Problem [...] of this encounter (statuses as of 02/10/2022) [facility] N[facility]* Problem [...] of this encounter (statuses as of 02/16/2022) [facility]* Problem [...] of this encounter (statuses as of 02/27/2022) [facility] [facility] Narrative* Problem [...] of this encounter (statuses as of 03/02/2022) [facility] History of Past illness Narrative* Problem [...] of this encounter (statuses as of 03/10/2022) [facility] Past illness Narrative* Problem [...] of this encounter (statuses as of 03/11/2022) [facility] Past [facility] Narrative* Problem [...] of this encounter (statuses as of 03/12/2022) [facility]ative* Problem [...] of this encounter (statuses as of 03/19/2022) [facility]* Problem [...] of this encounter (statuses as of 03/23/2022) [facility]* Problem [...] of this encounter (statuses as of 03/25/2022) [facility]* Problem [...] of this encounter (statuses as of 03/26/2022) [facility]* Problem [...] of this encounter (statuses as of 03/27/2022) [facility]* Problem [...] of this encounter (statuses as of 04/06/2022) [facility]* Problem [...] of this encounter (statuses as of 04/10/2022) [facility]* Problem [...] of this encounter (statuses as of 04/27/2022) [facility]* Problem [...] of this encounter (statuses as of 04/28/2022) [facility]* Problem [...] of this encounter (statuses as of 04/29/2022) [facility]* Problem [...] of this encounter (statuses as of 05/04/2022) [facility]* Problem [...] of this encounter (statuses as of 05/06/2022) [facility]* Problem [...] of this encounter (statuses as of 05/06/2022) [facility]* Problem [...] of this encounter (statuses as of 05/07/2022) [facility]* Problem [...] of this encounter (statuses as of 05/22/2022) [facility]* Problem [...] of this encounter (statuses as of 06/03/2022) [facility]* Problem [...] of this encounter (statuses as of 06/03/2022) [facility]* Problem [...] of this encounter (statuses as of 06/05/2022) [facility]* Problem [...] of this encounter (statuses as of 06/05/2022) [facility]* Problem [...] of this encounter (statuses as of 06/11/2022) [facility]* Problem [...] of this encounter (statuses as of 06/11/2022) [facility]* Problem [...] of this encounter (statuses as of 06/15/2022) [facility]* Problem [...] of this encounter (statuses as of 06/18/2022) [facility]* Problem [...] of this encounter (statuses as of 06/18/2022) [facility]* Problem [...] of this encounter (statuses as of 06/23/2022) [facility]* Problem [...] of this encounter (statuses as of 07/02/2022) [facility]* Problem [...] of this encounter (statuses as of 07/07/2022) [facility]* Problem [...] of this encounter (statuses as of 08/03/2022) [facility]* Problem [...] of this encounter (statuses as of 08/04/2022) [facility]* Problem [...] of this encounter (statuses as of 08/04/2022) [facility]* Problem [...] of this encounter (statuses as of 08/04/2022) [facility]* Problem [...] of this encounter (statuses as of 08/08/2022) [facility]* Problem [...] of this encounter (statuses as of 08/12/2022) [facility]* Problem [...] of this encounter (statuses as of 08/19/2022) [facility]* Problem [...] of this encounter (statuses as of 08/26/2022) [facility]* Problem [...] of this encounter (statuses as of 08/26/2022) [facility]* Problem [...] of this encounter (statuses as of 09/01/2022) [facility]* Problem [...] of this encounter (statuses as of 09/01/2022) [facility]* Problem [...] of this encounter (statuses as of 09/03/2022) [facility]* Problem [...] of this encounter (statuses as of 09/11/2022) [facility]* Problem [...] of this encounter (statuses as of 09/12/2022) [facility]* Problem [...] of this encounter (statuses as of 09/14/2022) [facility]* Problem [...] of this encounter (statuses as of 09/18/2022) [facility]* Problem [...] of this encounter (statuses as of 09/18/2022) [facility]* Problem [...] of this encounter (statuses as of 09/23/2022) [facility]* Problem [...] of this encounter (statuses as of 09/26/2022) [facility]* Problem [...] of this encounter (statuses as of 09/26/2022) [facility]* Problem [...] of this encounter (statuses as of 09/29/2022) [facility]* Problem [...] of this encounter (statuses as of 10/02/2022) [facility]* Problem [...] of this encounter (statuses as of 10/12/2022) [facility]* Problem [...] of this encounter (statuses as of 10/12/2022) [facility]* Problem [...] of this encounter (statuses as of 10/28/2022) [facility]* Problem [...] of this encounter (statuses as of 11/06/2022) [facility]* Problem [...] of this encounter (statuses as of 11/03/2022) [facility]arrative* Problem Noted Date Resolved Date Obesity, Class III, BMI >= 40 01/05/2019 History of gastric bypass 06/19/20142021 Pain in joint, shoulder region 04/18/2013 0 08/18/2022 Other physical therapy 08/12/2010 Other postoperative infection 03/08/2009 Unspecified pruritic disorder 12/07/2007 Morbid obesity 08/18/2007 03/10/2019 Diabetes mellitus type 2, 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, without complications 01/20/2005 08/21/2021 Last Assessment & Plan: SSI AC scale 1 Carb controlled diet Hold home metformin documented as of this encounter (statuses as of 11/04/2022) [facility] History of Past illness Narrative* Problem [...] of this encounter (statuses as of 12/05/2022) [facility] Past [facility] Narrative* Problem [...] of this encounter (statuses as of 12/25/2022) [facility] Past [facility] Narrative* Problem [...] of this encounter (statuses as of 12/30/2022) [facility]arrative* Problem [...] of this encounter (statuses as of 01/04/2023) [facility]ative* Problem [...] of this encounter (statuses as of 01/09/2023) [facility]arrative* Problem [...] of this encounter (statuses as of 01/11/2023) [facility]arrative* Problem [...] of this encounter (statuses as of 01/14/2023) [facility]arrative* Problem [...] of this encounter (statuses as of 01/27/2023) [facility]arrative* Problem [...] of this encounter (statuses as of 01/29/2023) [facility]* Problem [...] of this encounter (statuses as of 01/29/2023) [facility]* Problem [...] of this encounter (statuses as of 02/02/2023) [facility]arrative* Problem [...] of this encounter (statuses as of 02/03/2023) [place] [id number] History of Past illness Narrative* Problem Noted [...] of this encounter (statuses as of 02/04/2023) [facility] Past [facility]arrative* Problem [...] of this encounter (statuses as of 02/20/2023) [facility]arrative* Problem [...] of this encounter (statuses as of 03/06/2023) [facility]arrative* Problem [...] of this encounter (statuses as of 03/18/2023) [facility]arrative* Problem [...] of this encounter (statuses as of 03/30/2023) [facility]arrative* Problem [...] of this encounter (statuses as of 04/03/2023) [facility]arrative* Problem [...] of this encounter (statuses as of 05/04/2023) [facility]arrative* Problem [...] of this encounter (statuses as of 05/14/2023) [facility]* Problem [...] of this encounter (statuses as of 06/27/2023) [facility]* Problem [...] of this encounter (statuses as of 07/07/2023) [facility]ative* Problem [...] of this encounter (statuses as of 07/07/2023) [facility]arrative* Problem [...] of this encounter (statuses as of 07/09/2023) [facility]arrative* Problem [...] of this encounter (statuses as of 07/22/2023) [facility] Past [facility]arrative* Problem [...] of this encounter (statuses as of 07/22/2023) [facility]arrative* Problem [...] of this encounter (statuses as of 08/02/2023) [facility]arrative* Problem [...] of this encounter (statuses as of 08/11/2023) [facility]arrative* Problem [...] of this encounter (statuses as of 08/12/2023) [facility] Past [facility]arrative* Problem [...] of this encounter (statuses as of 08/13/2023) [facility]arrative* Problem [...] of this encounter (statuses as of 08/13/2023) [facility]* Problem [...] of this encounter (statuses as of 08/16/2023) [facility]arrative* Problem [...] of this encounter (statuses as of 08/16/2023) [facility]arrative* Problem [...] of this encounter (statuses as of 09/06/2023) [facility]arrative* Problem [...] of this encounter (statuses as of 09/17/2023) [facility] 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), 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, not stated as uncontrolled Radiculopathy of thoracic region Thoracic or lumbosacral neuritis or radiculitis, unspecified [facility] Diagnosis Pernicious anemia- Primary [facility] [place] [facility] Diagnosis Radiculopathy of thoracic region Thoracic or lumbosacral neuritis or radiculitis, unspecified [facility] [place] [facility] Diagnosis Shortness of breath on exertion- Primary Shortness of breath Irregular heart beat Cardiac dysrhythmia, unspecified Fatigue, unspecified type Elevated ferritin Other abnormal blood chemistry [facility] this [facility] [place] [facility]* Diagnosis Irregular heart beat- Primary Cardiac dysrhythmia, unspecified Shortness of breath on exertion Shortness of breath Fatigue, unspecified type Skin tear of left forearm without complication, initial encounter Lightheadedness Dizziness and giddiness [facility] [place] [facility]* Diagnosis 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 [facility] [place] [facility]* Diagnosis Chronic left SI joint pain- Primary Disorders of sacrum Sacroiliac joint pain Disorders of sacrum SI joint arthritis Sacroiliitis, not elsewhere classified Chronic left SI joint pain Disorders of sacrum Sacroiliac joint pain Disorders of sacrum SI joint arthritis Sacroiliitis, not elsewhere classified [facility] [place] [facility]* Diagnosis Dyspnea on exertion- Primary Other dyspnea and respiratory abnormality Chronic left SI joint pain Disorders of sacrum Sacroiliac joint pain Disorders of sacrum SI joint arthritis Sacroiliitis, not elsewhere classified [facility] this [facility] [place] [facility]* Diagnosis Pernicious anemia- Primary Chronic left SI joint pain Disorders of sacrum Sacroiliac joint pain Disorders of sacrum SI joint arthritis Sacroiliitis, not elsewhere classified [facility] [place] [facility]* Diagnosis Acute UTI- Primary Urinary tract infection, site not specified Urinary frequency Glucosuria Glycosuria [facility] [place] [facility]* Diagnosis Elevated ferritin- Primary Other abnormal blood chemistry [facility] [place] [facility]* Diagnosis Pernicious anemia- Primary [facility] [place] [facility]* Diagnosis Chronic left SI joint pain- Primary Disorders of sacrum Sacroiliac joint pain Disorders of sacrum SI joint arthritis Sacroiliitis, not elsewhere classified Chronic SI joint pain Disorders of sacrum [facility] [place] [facility]* Diagnosis Fatigue, unspecified type- Primary Iron deficiency Iron deficiency anemia, unspecified Chronic left SI joint pain Disorders of sacrum Sacroiliac joint pain Disorders of sacrum SI joint arthritis Sacroiliitis, not elsewhere classified [facility] this [facility] [place] [facility]* Diagnosis B12 deficiency- Primary Other B-complex deficiencies Chronic left SI joint pain Disorders of sacrum Sacroiliac joint pain Disorders of sacrum SI joint arthritis Sacroiliitis, not elsewhere classified [facility] this [facility] [place] [facility]* Diagnosis Iron deficiency- Primary Iron deficiency anemia, unspecified [facility] this [facility] [place] [facility]* Diagnosis Chronic left SI joint pain- Primary Disorders of sacrum Sacroiliac joint pain Disorders of sacrum SI joint arthritis Sacroiliitis, not elsewhere classified Chronic left SI joint pain Disorders of sacrum Sacroiliac joint pain Disorders of sacrum SI joint arthritis Sacroiliitis, not elsewhere classified [facility] this [facility] [place] [facility]* Diagnosis Need for influenza vaccination- Primary Need for prophylactic vaccination and inoculation against influenza Pernicious anemia Chronic left SI joint pain Disorders of sacrum Sacroiliac joint pain Disorders of sacrum SI joint arthritis Sacroiliitis, not elsewhere classified documented [facility] this [facility] [place] noteNo assessment information availableWFulton [facility] Work Phone: Evaluation note* Diagnosis Pernicious anemia- Primary Need for vaccination Need for prophylactic vaccination and inoculation against unspecified single disease [facility] [place] [facility]* Diagnosis Chronic left SI joint pain- Primary Disorders of sacrum [facility] [place] [facility]* Diagnosis Chronic left SI joint pain- Primary Disorders of sacrum Sacroiliac joint pain Disorders of sacrum Chronic left SI joint pain Disorders of sacrum Sacroiliac joint pain Disorders of sacrum [facility] this 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 [place] [facility]* Diagnosis Radiculopathy of thoracic region Thoracic or lumbosacral neuritis or radiculitis, unspecified Chronic left SI joint pain Disorders of sacrum Sacroiliac joint pain Disorders of sacrum [facility] this [facility] [place] [facility]* Diagnosis Fatigue, unspecified type- Primary Primary hypertension Unspecified essential hypertension Hypoalbuminemia Other disorders of plasma protein metabolism Dietary iron deficiency without anemia Other nutritional deficiency Elevated ferritin Other abnormal blood chemistry Class 3 severe obesity due to excess calories with body mass index (BMI) of 40.0 to 44.9 in adult, unspecified whether serious comorbidity present (HCC) documented in this encounter [facility] note* Diagnosis Iron deficiency Iron deficiency anemia, unspecified [facility] this [facility] [place] [facility]* Diagnosis Pernicious anemia- Primary [facility] this [facility] [place] [facility]* Diagnosis FIELD (dyspnea on exertion)- Primary Other dyspnea and respiratory abnormality Dietary iron deficiency without anemia Other nutritional deficiency Grade I diastolic dysfunction Chronic cough Cough Renal calculus, left Calculus of kidney Primary hypertension Unspecified essential hypertension Hypoalbuminemia Other disorders of plasma protein metabolism DM (diabetes mellitus), type 2 with neurological complications ([facility]) Type II or unspecified type diabetes mellitus [...] Calculus of kidney [facility] this [facility] [place] [facility]* Diagnosis FIELD (dyspnea on exertion) Other dyspnea and respiratory abnormality Chronic cough Cough Renal calculus, left Calculus of kidney [facility] this [facility] [place] [facility]* Diagnosis FIELD (dyspnea on exertion) Other dyspnea and respiratory abnormality Chronic cough Cough Renal calculus, left Calculus of kidney [facility] this [facility] [place] [facility]* Diagnosis Lumbosacral facet joint syndrome- Primary Other symptoms referable to back Spondylolisthesis of lumbar region Acquired spondylolisthesis Spinal stenosis of lumbar region, unspecified whether neurogenic claudication present Renal calculus, left Calculus of kidney [facility] this [facility] [place] [facility]* Diagnosis Pernicious anemia- Primary Renal calculus, left Calculus of kidney [facility] this [facility] [place] [facility]* Diagnosis Crushing injury of right middle finger, initial encounter- Primary Open fracture of tuft of distal phalanx of finger Open fracture of distal phalanx or phalanges of hand Nausea Nausea alone Renal calculus, left Calculus of kidney [facility] [place] [facility]* Diagnosis Finger injury, right, initial encounter- Primary Renal calculus, left Calculus of kidney [facility] [place] [facility]* Diagnosis Spinal stenosis of lumbar region, [...] region Acquired spondylolisthesis [facility] [place] [facility]* Diagnosis Kidney stone- Primary Calculus of kidney Spinal stenosis of lumbar region, unspecified whether neurogenic claudication present Lumbar spondylosis Lumbosacral spondylosis without myelopathy Radiculopathy, lumbar region Thoracic or lumbosacral neuritis or radiculitis, unspecified Spondylolisthesis of lumbar region Acquired spondylolisthesis [facility] [place] [facility]* Diagnosis Crushing injury of right middle finger, sequela- Primary Renal calculus, left Calculus of kidney Spinal stenosis of lumbar region, unspecified whether neurogenic claudication present Lumbar spondylosis Lumbosacral spondylosis without myelopathy Radiculopathy, lumbar region Thoracic or lumbosacral neuritis or radiculitis, unspecified Spondylolisthesis of lumbar region Acquired spondylolisthesis [facility] [place] [facility]* Diagnosis Dysuria- Primary Spinal stenosis of lumbar region, unspecified whether neurogenic claudication present Lumbar spondylosis Lumbosacral spondylosis without myelopathy Radiculopathy, lumbar region Thoracic or lumbosacral neuritis or radiculitis, unspecified Spondylolisthesis of lumbar region Acquired spondylolisthesis documented [facility] [place] [facility]* Diagnosis Pernicious anemia- Primary Spinal stenosis of lumbar region, unspecified whether neurogenic claudication present Lumbar spondylosis Lumbosacral spondylosis without myelopathy Radiculopathy, lumbar region Thoracic or lumbosacral neuritis or radiculitis, unspecified Spondylolisthesis of lumbar region Acquired spondylolisthesis [facility] [place] [facility]* Diagnosis Spondylolisthesis of lumbar region Acquired spondylolisthesis Open compression fracture of L1 lumbar vertebra with routine healing, subsequent encounter Anxiety disorder, unspecified type documented in this encounter [facility] [place] [facility]* Diagnosis Spinal stenosis of lumbar region, unspecified whether neurogenic claudication present- Primary Lumbar spondylosis Lumbosacral spondylosis without myelopathy Radiculopathy, lumbar region Thoracic or lumbosacral neuritis or radiculitis, unspecified Spondylolisthesis of lumbar region Acquired spondylolisthesis [facility] [place] [facility]* Diagnosis Pernicious anemia- Primary [facility] [place] [facility]* Diagnosis DM (diabetes mellitus), 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, not stated as uncontrolled [facility] [place] [facility]* Diagnosis Spinal stenosis of lumbar region, unspecified whether neurogenic claudication present Lumbar spondylosis Lumbosacral spondylosis without myelopathy Radiculopathy, lumbar region Thoracic or lumbosacral neuritis or radiculitis, unspecified Spondylolisthesis of lumbar region Acquired spondylolisthesis [facility] Diagnosis Irregular heart rhythm- Primary Cardiac [...] deficiencies Other fatigue [facility] [place] [facility]* Diagnosis Pernicious anemia- Primary [facility] [place] [facility]* Diagnosis Spinal stenosis of lumbar region, unspecified whether neurogenic claudication present- Primary Lumbar spondylosis Lumbosacral spondylosis without myelopathy Spondylolisthesis of lumbar region Acquired spondylolisthesis Radiculopathy, lumbar region Thoracic or lumbosacral neuritis or radiculitis, unspecified documented in this encounter [facility] [place] [facility]* Diagnosis Spinal stenosis of lumbar region, unspecified whether neurogenic claudication present- Primary Lumbar spondylosis Lumbosacral spondylosis without myelopathy Spondylolisthesis of lumbar region Acquired spondylolisthesis Radiculopathy, lumbar region Thoracic or lumbosacral neuritis or radiculitis, unspecified documented in this encounter [facility] [place] [facility]* Diagnosis Spinal stenosis of lumbar region, unspecified whether neurogenic claudication present- Primary Lumbar spondylosis Lumbosacral spondylosis without myelopathy Spondylolisthesis of lumbar region Acquired spondylolisthesis Radiculopathy, lumbar region Thoracic or lumbosacral neuritis or radiculitis, unspecified documented in this encounter [facility] [place] [facility]* Diagnosis Spondylolisthesis of lumbar region- Primary Acquired spondylolisthesis Chronic SI joint pain Disorders of sacrum Spinal stenosis of lumbar region, unspecified whether neurogenic claudication present Pain in left hip Pain in joint, pelvic region and thigh Radiculopathy, lumbar region Thoracic or lumbosacral neuritis or radiculitis, unspecified documented in this encounter [facility] note* Diagnosis Spondylolisthesis of lumbar region- Primary Acquired spondylolisthesis Spinal stenosis of lumbar region, unspecified whether neurogenic claudication present Radiculopathy, lumbar region Thoracic or lumbosacral neuritis or radiculitis, unspecified Spondylolisthesis of lumbar region Acquired spondylolisthesis Spinal stenosis of lumbar region, unspecified whether neurogenic claudication present Radiculopathy, lumbar region Thoracic or lumbosacral neuritis or radiculitis, unspecified documented in this encounter [facility] note* Diagnosis Spinal stenosis of [...] or radiculitis, unspecified documented in this encounter [facility] note* Diagnosis Radiculopathy of thoracic region Thoracic or lumbosacral neuritis or radiculitis, unspecified Spondylolisthesis of lumbar region Acquired spondylolisthesis Spinal stenosis of lumbar region, unspecified whether neurogenic claudication present Radiculopathy, lumbar region Thoracic or lumbosacral neuritis or radiculitis, unspecified documented in this encounter [facility] [place] [facility]* Diagnosis Pernicious anemia- Primary Spondylolisthesis of lumbar region Acquired spondylolisthesis Spinal stenosis of lumbar region, unspecified whether neurogenic claudication present Radiculopathy, lumbar region Thoracic or lumbosacral neuritis or radiculitis, unspecified documented in this encounter [facility] note* Diagnosis Spinal stenosis of lumbar region, unspecified whether neurogenic claudication present- Primary Lumbar spondylosis Lumbosacral spondylosis without myelopathy Spondylolisthesis of lumbar region Acquired spondylolisthesis Radiculopathy, lumbar region Thoracic or lumbosacral neuritis or radiculitis, unspecified documented in this encounter [facility] note* Diagnosis Current moderate episode of major depressive disorder, unspecified whether recurrent (HCC)- Primary Anxiety disorder, unspecified type Radiculopathy, lumbar region Thoracic or lumbosacral neuritis or radiculitis, unspecified Chronic SI joint pain Disorders of sacrum Single subsegmental pulmonary embolism without acute cor pulmonale (HCC) Type 2 diabetes mellitus with peripheral neuropathy (HCC) documented in this encounter [facility] note* Diagnosis Spinal stenosis of lumbar region, unspecified whether neurogenic claudication present- Primary Lumbar spondylosis Lumbosacral spondylosis without myelopathy Spondylolisthesis of lumbar region Acquired spondylolisthesis Radiculopathy, lumbar region Thoracic or lumbosacral neuritis or radiculitis, unspecified documented in this encounter [facility] note* Diagnosis Pernicious anemia- Primary documented in this encounter [facility] note* Diagnosis 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 documented in this encounter [facility] note* Diagnosis DM (diabetes mellitus), 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 Type II or unspecified type diabetes mellitus with neurological manifestations, not stated as uncontrolled Type 2 diabetes mellitus with peripheral neuropathy (HCC) documented in this encounter [facility] note* Diagnosis Pernicious anemia- Primary documented in this encounter [facility] note* Diagnosis 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 [facility] Diagnosis FIELD (dyspnea on exertion)- Primary Other dyspnea and respiratory abnormality Irregular heart rhythm Cardiac dysrhythmia, unspecified Premature atrial complexes Supraventricular premature beats PAC (premature atrial contraction) Supraventricular premature beats Mixed hyperlipidemia Carotid artery stenosis without cerebral infarction, bilateral Type 2 diabetes mellitus with peripheral neuropathy (HCC) Atypical chest pain Other chest pain [facility] Diagnosis Irregular heart rhythm Cardiac dysrhythmia, unspecified FIELD (dyspnea on exertion) Other dyspnea and respiratory abnormality Premature atrial complexes Supraventricular premature beats PAC (premature atrial contraction) Supraventricular premature beats Mixed hyperlipidemia Carotid artery stenosis without cerebral infarction, bilateral Type 2 diabetes mellitus with peripheral neuropathy (HCC) Atypical chest pain Other chest pain [facility] Diagnosis Pernicious anemia- Primary [facility] Diagnosis Hypotension due to drugs- Primary Other iatrogenic hypotension Chronic fatigue Other malaise and fatigue Memory deficit Memory loss Obesity, Class II, BMI 35-39.9 Obesity, unspecified Need for influenza vaccination Need for prophylactic vaccination and inoculation against influenza Encounter for therapeutic drug monitoring Type 2 diabetes mellitus with peripheral neuropathy (HCC) Mixed hyperlipidemia [facility] Diagnosis Pernicious anemia- Primary [facility] Diagnosis 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[facility] Diagnosis Pernicious anemia- Primary [facility]* Diagnosis 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 [facility] Diagnosis Kidney stone Calculus of kidney [facility] Diagnosis Memory difficulties- Primary Memory loss Vitamin D deficiency Unspecified vitamin D deficiency Chronic cough Cough Type 2 diabetes mellitus with peripheral neuropathy (HCC) Breast cancer screening by mammogram Encounter for immunization Need for other specified prophylactic vaccination against single bacterial disease [facility] [place] [facility]* Diagnosis Dyspnea on exertion- Primary Other dyspnea and respiratory abnormality Premature atrial complexes Supraventricular premature beats Type 2 diabetes mellitus with peripheral neuropathy (HCC) Multiple subsegmental pulmonary emboli without acute cor pulmonale (HCC) ASIM (obstructive sleep apnea) Obstructive sleep apnea (adult) (pediatric) documented [facility] [place] [facility]* Diagnosis Abnormal mammogram- Primary Abnormal mammogram, unspecified [facility] [place] [facility]* Diagnosis 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, without long-term current use of insulin (HCC)- Primary Class 1 obesity due to excess calories with serious comorbidity and body mass index (BMI) of 34.0 to 34.9 in adult documented in this encounter [facility] [place] [facility]* Diagnosis Abnormal mammogram Abnormal mammogram, unspecified [facility] [place] [facility]* Diagnosis Abnormal mammogram Abnormal mammogram, unspecified documented in this encounter 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 [place] [facility]* Diagnosis Pernicious anemia- Primary [facility] [place] [facility]* Diagnosis 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, without long-term current use of insulin (HCC)- Primary [facility] [place] [facility]* Diagnosis Pernicious anemia- Primary [facility] [place] [facility]* Diagnosis 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, without long-term current use of insulin (HCC)- Primary Class 1 obesity due to excess calories with serious comorbidity and body mass index (BMI) of 34.0 to 34.9 in adult [facility] [place] [facility]* Diagnosis Uncontrolled type 2 diabetes mellitus [...] cerebral infarction, bilateral documented in this encounter [facility] [place] [facility]* Diagnosis Cognitive impairment- Primary Unspecified persistent mental disorders due to conditions classified elsewhere Type 2 diabetes mellitus with peripheral neuropathy ([facility]) Class 1 obesity due to excess calories with body mass index (BMI) of 33.0 to 33.9 in adult, unspecified whether serious comorbidity present Mixed hyperlipidemia Vitamin D deficiency Unspecified vitamin D deficiency Vitamin B12 deficiency Other B-complex deficiencies History of Jordin-en-Y gastric bypass Bariatric surgery status Iron deficiency Iron deficiency anemia, unspecified Encounter for long-term current use of medication [facility] [place] [facility]* Diagnosis Type 2 diabetes mellitus with peripheral neuropathy (HCC) documented in this encounter [facility] [place] [facility]* Diagnosis Acute pain of right knee- Primary [facility] [place] [facility]* Diagnosis Acute pain of right knee [facility] [place] [facility]* Diagnosis UTI symptoms- Primary Other symptoms involving urinary system documented in this encounter [facility] [place] [facility]* Diagnosis Vulvovaginal pain- Primary Unspecified symptom [...] (diabetes mellitus), type 2 with neurological complications ([facility]) Type II or unspecified type diabetes mellitus [...] (BMI) of 38.0 to 38.9 in adult ([facility]) Renal calculus, left Calculus of kidney documented in this encounter [facility] note* Diagnosis Vulvovaginal pain- Primary [...] (BMI) of 38.0 to 38.9 in adult ([facility]) Crushing injury of right middle finger, initial encounter documented in this encounter [facility] note* Diagnosis Vulvovaginal pain- Primary [...] (BMI) of 38.0 to 38.9 in adult ([facility]) Shortness of breath on exertion Shortness of breath documented in this encounter [facility] note* Diagnosis Vulvovaginal pain- Primary [...] subsegmental pulmonary emboli without acute cor pulmonale ([facility]) Atypical chest pain Other chest pain Hyperlipidemia, unspecified hyperlipidemia type DM (diabetes mellitus), type 2 with neurological complications ([facility]) Type II or unspecified type diabetes mellitus [...] (BMI) of 38.0 to 38.9 in adult ([facility]) Lumbar spondylosis- Primary Lumbosacral spondylosis without myelopathy Spondylolisthesis of lumbar region Acquired spondylolisthesis Radiculopathy, lumbar region Thoracic or lumbosacral neuritis or radiculitis, unspecified Lumbar spondylosis Lumbosacral spondylosis without myelopathy Spondylolisthesis of lumbar region Acquired spondylolisthesis Radiculopathy, lumbar region Thoracic or lumbosacral neuritis or radiculitis, unspecified documented in this encounter [facility] note* Diagnosis Vulvovaginal pain- Primary [...] subsegmental pulmonary emboli without acute cor pulmonale ([facility]) Atypical chest pain Other chest pain Hyperlipidemia, [...] or radiculitis, unspecified documented in this encounter [facility] [place] [facility]* Diagnosis Vulvovaginal pain- Primary Unspecified symptom [...] hyperglycemia, without long-term current use of insulin ([facility]) Hyperkalemia Hyperpotassemia [facility] Diagnosis Vulvovaginal pain- Primary Unspecified [...] subsegmental pulmonary emboli without acute cor pulmonale ([facility]) Atypical chest pain Other chest pain Hyperlipidemia, unspecified hyperlipidemia type DM (diabetes mellitus), type 2 with neurological complications ([facility]) Type II or unspecified type diabetes mellitus [...] (BMI) of 38.0 to 38.9 in adult ([facility]) Pruritic condition- Primary Unspecified pruritic disorder Anemia, unspecified type Type 2 diabetes mellitus with peripheral neuropathy ([facility]) Vitamin D deficiency Unspecified vitamin D deficiency [...] Other specified counseling Longstanding persistent atrial fibrillation ([facility]) [facility] Diagnosis Vulvovaginal pain- Primary Unspecified [...] of insulin (HCC) [facility] Diagnosis Vulvovaginal pain- Primary Unspecified [...] stated as uncontrolled Pernicious anemia History of Jrodin-en-Y gastric bypass Bariatric surgery status Spinal stenosis [...] of insulin (HCC) [facility] [place] [facility]* Diagnosis Vulvovaginal pain- Primary Unspecified symptom [...] Unspecified intracranial hemorrhage [facility] Diagnosis Nontraumatic intracranial hemorrhage, unspecified (HCC) [facility] [place] [facility] Diagnosis Vulvovaginal pain- Primary Unspecified symptom [...] subsequent encounter- Primary documented in this encounter [facility] [place] [facility]* Diagnosis Nontraumatic intracranial hemorrhage, unspecified (HCC)- Primary Nontraumatic intracranial hemorrhage, unspecified (HCC) documented in this encounter [facility] note* Diagnosis Nontraumatic intracranial hemorrhage, unspecified (HCC)- Primary [facility] Additional Instructions The Dermabond/skin adhesive will fall off on its own in approximately 10 days. You can continue to shower and wash your hair as normal. Please return to the ER should you have any further concernsWFult[facility] Work Phone: Hospital Discharge instructions Additional Instructions Please follow-up with urology for repeat evaluation and return to the ER if your pain is not controlled with outpatient therapy or you develop a fever over 100.4[facility] Work Phone: Reason for referral (narrative)* Outpatient Procedure (Routine) - Waiting for Online Response Specialty Diagnoses / Procedures Referred By Liliana silva Referred To [facility] Diagnoses Shortness of breath on exertion Irregular heart beat Fatigue, unspecified type Procedures ECHO ECHO TTHRC R-T 2D W/WOM-MODE COMPL SPEC&COLR D Comfort Patterson APRN.CNS [address] [place] [address] [facility] [place] [address] [place] [address] Referral ID Status Reason Start Date Expiration Date Visits Requested Visits Authorized [id number] Waiting for Online Response Auto-Generat ed Referral 10/28/2021 10/07/2022 1 1 * Consult, Test, Treat (Routine) - Pending Review Specialty Diagnoses / Procedures Referred By Liliana silva Referred To Contact Cardiology Diagnoses Shortness of breath on exertion Irregular heart beat Fatigue, unspecified type Procedures CONSULT TO CARDIOLOGY OFFICE/OUTPATIENT [facility] 60-74 MINUTES Comfort Patterosn APRN.CNS [address] [place] [address] Referral ID Status Reason Start Date Expiration Date Visits Requested Visits Authorized [id number] Pending Review PCP Requested Referral 10/28/2021 10/07/2022 1 1 [facility] for referral (narrative)* Outpatient Procedure (Routine) - Pending Review Specialty Diagnoses / Procedures Referred By Contac t Referred To Contact [facility] [place] Diagnoses Irregular heart beat Procedures ECG COMPLETE ECG ROUTINE ECG W/LEAST 12 LDS W/I&R Iban Soto MD [address] [place] [address] [facility] [place] [id number] Referral ID Status Reason Start Date Expiration Date Visits Requested Visits Authorized [id number] Pending Review Auto-Generat ed Referral 10/03/2021 10/03/2022 1 1 [facility] for referral (narrative)* Outpatient Procedure (Routine) - Closed Specialty Diagnoses / Procedures Referred By Contac t Referred To Contact [facility] [place] Diagnoses Dyspnea on exertion Procedures ECG COMPLETE ECG ROUTINE ECG W/LEAST 12 LDS W/I&[place] [address] [place], [place] [id number] [facility] [place] [id number] Referral ID Status Reason Start Date Expiration Date V isits Requested Visits Authorized [id number] Closed Auto-Generate d Referral 11/02/2021 11/02/2022 1 1 [facility] for referral (narrative)* Outpatient Procedure (Routine) - Pending Review Specialty Diagnoses / Procedures Referred By Contac t Referred To Contact [facility] Diagnoses FIELD (dyspnea on exertion) Chronic cough Procedures LUNG VOLUMES Guillaume Dominguez MD [address] [place] [address] [facility] [place] [address] [place] [id number] Referral ID Status Reason Start Date Expiration Date Visits Requested Visits Authorized [id number] Pending Review Auto-Generat ed Referral 2 05/27/2023 1 1 * Outpatient Procedure (Routine) - Authorized Specialty Diagnoses / Procedures Referred By Contac t Referred To Contact [facility] Diagnoses FIELD (dyspnea on exertion) Chronic cough Procedures SPIROMETRY WITH DILATOR IF OBSTRUCTED BRNCDILAT RSPSE SPMTRY PRE&POST-BRNCDILAT ADMN Guillaume Dominguez MD [address] [place] [address] [address] Referral ID Status Reason Start Date Expiration Date Visits Requested Visits Authorized [id number] Authorized Auto-Generat ed Referral 2 05/27/2023 1 1 * Outpatient Procedure (Routine) - Pending Review Specialty Diagnoses / Procedures Referred By Liliana t Referred To Contact [facility] Diagnoses Irregular heart rhythm Procedures ECG COMPLETE ECG ROUTINE ECG W/LEAST 12 LDS W/I&R Guillaume Dominguez MD [address] [place] [address] [facility] [address] [address] Referral ID Status Reason Start Date Expiration Date Visits Requested Visits Authorized [id number] Pending Review Auto-Generat ed Referral 2 04/27/2023 1 1 [facility] Diagnostic Procedure Only (Routine) - Pending Review Specialty Diagnoses / Procedures Referred By Contac t Referred To Contact XR IMAGING Diagnoses Finger injury, right, initial encounter Procedures XR DIGIT GENERAL 3V FRONTAL/LAT/OBL RIGHT RADEX FINGR MINIMUM 2 VIEWS Eren Robbins MD [address] [facility] [place] [place] [address] Xr Imaging Referral ID Status Reason Start Date Expiration Date Visits Requested Visits Authorized [id number] Pending Review Auto-Generat ed Referral 2 06/20/2023 1 1 [facility] for referral (narrative)* Diagnostic Procedure Only (Routine) - Pending Review Specialty Diagnoses / Procedures Referred By Contac t Referred To Contact XR IMAGING Diagnoses Kidney stone Procedures XR ABDOMEN 1V SUPINE RADIOLOGIC EXAM ABDOMEN 1 VIEW Maykel Patel Jr., MD [address] [place] [address] Xr Imaging Referral ID Status Reason Start Date Expiration Date Visits Requested Visits Authorized [id number] Pending Review Auto-Generat ed Referral 09/09/2022 07/11/2023 1 1 [facility] for referral (narrative)* Outpatient Procedure (Routine) - Pending Review Specialty Diagnoses / Procedures Referred By Evyac [...] SPEC&COLR D Maykel Whitfield DO [address] [address] [facility] [place] [address] [place] [address] Referral ID Status Reason Start Date Expiration Date Visits Requested Visits Authorized [id number] Pending Review Auto-Generat ed Referral 01/11/2023 01/11/2024 [...] PERF STRESS/PHARM MYOCARDIAL SPECT MULTIPLE STUDIES Maykel Whitfield, DO [address] [address] [facility] [address] [place] [address] Referral ID Status Reason Start Date Expiration Date Visits Requested Visits Authorized [id number] Pending Review Auto-Generat ed Referral 01/11/2023 02/10/2024 1 1 [facility] for referral (narrative)* Diagnostic Procedure Only (Routine) [...] PERF STRESS/PHARM MYOCARDIAL SPECT MULTIPLE STUDIES Maykel Whitfield, DO [address] [address] Molecular & Functional Imaging [address] [place] [address] Referral ID Status Reason Start Date Expiration Date V isits Requested Visits Authorized [id number] Closed Auto-Generate d Referral 01/12/2023 04/12/2023 1 1 [facility] for referral (narrative)* Diagnostic Procedure Only (Routine) - Closed Specialty Diagnoses / Procedures Referred By Contac t Referred To Contact XR IMAGING Diagnoses Kidney stone Procedures XR ABDOMEN 1V SUPINE RADIOLOGIC EXAM ABDOMEN 1 VIEW Maykel Patel Jr., MD [address] [place] [address] Xr Imaging [place] [address] Referral ID Status Reason Start Date Expiration Date V isits Requested Visits Authorized [id number] Closed Auto-Generate d Referral 09/23/2022 10/22/2023 1 1 [facility] for referral (narrative)* Diagnostic Procedure Only (Routine) - Authorized Specialty Diagnoses / Procedures Referred By Liliana t Referred To Contact BR IMAGING Diagnoses Abnormal mammogram Procedures US BREAST LTD RIGHT US BREAST UNI REAL TIME WITH IMAGE LIMITED Josefa Caputo APRN.WOOD BOAT BUILDER SUPERVISOR [address] [place], [place] [id number] [facility] [address] [place] [phone] Referral ID Status Reason Start Date Expiration Date Visits Requested Visits Authorized [id number] Authorized Auto-Generat ed Referral 07/07/2023 08/05/2024 1 1 * Diagnostic Procedure Only (Routine) - Authorized Specialty Diagnoses / Procedures Referred By Liliana t Referred To Contact BR IMAGING Diagnoses Abnormal mammogram Procedures ARTIS DIAGNOSTIC RIGHT DIAGNOSTIC MAMMOGRAPHY COMPUTER-AIDED DETCJ UNI Josefa Caputo APRN.WOOD BOAT BUILDER SUPERVISOR [address] [place], [place] [id number] [facility] [address] [place] [address] Referral ID Status Reason Start Date Expiration Date Visits Requested Visits Authorized [id number] Authorized Auto-Generat ed Referral 07/07/2023 08/05/2024 1 1 [facility] for referral (narrative)* Outpatient Procedure (Routine) - Authorized Specialty Diagnoses / Procedures Referred By Liliana t Referred To Contact [facility] Diagnoses Carotid stenosis, right Procedures US CAROTID ARTERIES POLO VAS LAB DUPLEX SCAN EXTRACRANIAL ART COMPL BI STUDY Josefa Caputo APRN.WOOD BO[employer] BUILDER SUPERVISOR [address] [place] [address] [facility] [place] [address] [place] [address] Referral ID Status Reason Start Date Expiration Date Visits Requested Visits Authorized [id number] Authorized Auto-Generat ed Referral 08/13/2023 08/12/2024 1 1 * Medication Prior Authorization - Authorized Specialty Diagnoses / Procedures Referred By Contac t Referred To Contact Diagnoses Anxiety disorder, unspecified type Radiculopathy, lumbar region Chronic SI joint pain Josefa Caputo APRN.CNP [address] [place] [address] Referral ID Status Reason Start Date Expiration Date V isits Requested Visits Authorized [id number] Authorized 05/31/2023 05/30/2024 1 1 [facility] for referral (narrative)* Diagnostic Procedure Only (Routine) - New Request Specialty Diagnoses / Procedures Referred By Contac t Referred To Contact XR IMAGING Diagnoses Acute pain of right knee Procedures XR KNEE LIMITED 2V AP/LAT RIGHT RADIOLOGIC EXAMINATION KNEE 1/2 VIEWS Josefa Caputo APRN.WOOD BOAT BUILDER SUPERVISOR [address] [place] [address] [place] [address] Referral ID Status Reason Start Date Expiration Date Visits Requested Visits Authorized [id number] New Request Auto-Generat ed Referral 12/24/2023 01/22/2025 1 1 [facility] for referral (narrative)* Diagnostic Procedure Only (Routine) - Closed Specialty Diagnoses / Procedures Referred By Contac t Referred To Contact XR IMAGING Diagnoses Renal calculus, left Procedures XR ABDOMEN 1V SUPINE RADIOLOGIC EXAM ABDOMEN 1 VIEW Maykel Patel Jr., MD [facility] [place] [address] [place] [address] Referral ID Status Reason Start Date Expiration Date V isits Requested Visits Authorized [id number] Closed Auto-Generate d Referral 04/07/2022 05/07/2023 1 1 [facility] for referral (narrative)* Diagnostic Procedure Only (Urgent) - Closed Specialty Diagnoses / Procedures Referred By Contac t Referred To Contact XR IMAGING Diagnoses Crushing injury of right middle finger, initial encounter Procedures XR DIGIT GENERAL 3V FRONTAL/LAT/OBL RIGHT RADEX FINGR MINIMUM 2 VIEWS Janae Sandoval APRN.WOOD BOAT BUILDER SUPERVISOR [address] [place] [address] [place] [address] Referral ID Status Reason Start Date Expiration Date V isits Requested Visits Authorized [id number] Closed Auto-Generate d Referral 05/06/2022 06/05/2023 1 1 [facility] for referral (narrative)No reason for referral information availableWFult[facility] Work Phone: [facility] Narrative* Diagnostic Procedure Only (Routine) [...] MULTIPLE STUDIES Maykel Whitfield DO [address] [address] [facility] [address] [place] [address] Referral ID Status Reason Start Date Expiration Date V isits Requested Visits Authorized [id number] Closed Auto-Generate d Referral 01/12/2023 04/12/2023 1 1 [facility] for visit Narrative* Diagnostic Procedure Only (Routine) - Closed Specialty Diagnoses / Procedures Referred By Contac t Referred To Contact XR IMAGING Diagnoses Kidney stone Procedures XR ABDOMEN 1V SUPINE RADIOLOGIC EXAM ABDOMEN 1 VIEW Maykel Patel Jr., MD [address] [place] [address] [place] [address] Referral ID Status Reason Start Date Expiration Date V isits Requested Visits Authorized [id number] Closed Auto-Generate d Referral 09/23/2022 10/22/2023 1 1 [facility] for visit Narrative* Diagnostic Procedure Only (Routine) - Closed Specialty Diagnoses / Procedures Referred By Contac t Referred To Contact BR IMAGING Diagnoses Abnormal mammogram Procedures ARTIS DIAGNOSTIC RIGHT DIAGNOSTIC MAMMOGRAPHY COMPUTER-AIDED DETCJ UNI Josefa Caputo SOLE TIER.WOOD BOAT BUILDER SUPERVISOR [address] [place] [address] [facility] [address] [place] [address] Referral ID Status Reason Start Date Expiration Date V isits Requested Visits Authorized [id number] Closed Auto-Generate d Referral 07/07/2023 08/05/2024 1 1 [facility] for visit Narrative* Diagnostic Procedure Only (Routine) - Authorized Specialty Diagnoses / Procedures Referred By Liliana t Referred To Contact BR IMAGING Diagnoses Abnormal mammogram Procedures US BREAST LTD RIGHT US BREAST UNI REAL TIME WITH IMAGE LIMITED Josefa Caputo SOLE TIER.WOOD BOAT BUILDER SUPERVISOR [address] [place] [address] [facility] [address] [place] [address] Referral ID Status Reason Start Date Expiration Date Visits Requested Visits Authorized [id number] Authorized Auto-Generat ed Referral 07/07/2023 08/05/2024 1 1 [facility] for visit Narrative* Diagnostic Procedure Only (Routine) - Closed Specialty Diagnoses / Procedures Referred By Contac t Referred To Contact XR IMAGING Diagnoses Acute pain of right knee Procedures XR KNEE LIMITED 2V AP/LAT RIGHT RADIOLOGIC EXAMINATION KNEE 1/2 VIEWS Josefa Caputo SOLE TIER.WOOD BOAT BUILDER SUPERVISOR [address] [place] [address] [place] [address] Referral ID Status Reason Start Date Expiration Date V isits Requested Visits Authorized [id number] Closed Auto-Generate d Referral 12/24/2023 01/22/2025 1 1 [facility] for visit Narrative* Diagnostic Procedure Only (Routine) - Closed Specialty Diagnoses / Procedures Referred By Contac t Referred To Contact XR IMAGING Diagnoses Renal calculus, left Procedures XR ABDOMEN 1V SUPINE RADIOLOGIC EXAM ABDOMEN 1 VIEW Maykel Patel Jr., MD [address] [place] [address] [place] [address] Referral ID Status Reason Start Date Expiration Date V isits Requested Visits Authorized [id number] Closed Auto-Generate d Referral 04/07/2022 05/07/2023 1 1 [facility] for visit Narrative* Diagnostic Procedure Only (Urgent) - Closed Specialty Diagnoses / Procedures Referred By Contac t Referred To Contact XR IMAGING Diagnoses Crushing injury of right middle finger, initial encounter Procedures XR DIGIT GENERAL 3V FRONTAL/LAT/OBL RIGHT RADEX FINGR MINIMUM 2 VIEWS Janae Sandoval, MG.WOOD BOAT BUILDER SUPERVISOR [address] [place] [address] [place] [address] Referral ID Status Reason Start Date Expiration Date V isits Requested Visits Authorized [id number] Closed Auto-Generate d Referral 05/06/2022 06/05/2023 1 1 [facility] for visit Narrative* Imaging (Routine) - Closed Specialty Diagnoses / Procedures Referred By Contac t Referred To Contact Radiology Diagnoses Nontraumatic intracranial hemorrhage, unspecified (HCC) Procedures CT head wo IV contrast Tika Jones MD [address] [place] [address] Phone: tel: fax: Referral ID Status Reason Start Date Expiration Date Visits Re quested Visits Authorized [id number] Closed 08/01/2024 09/30/2024 1 1 [facility] Summary Purpose Family History No Family History Records FoundNo Family History Records FoundNo Family History Records FoundNo Family History Records FoundNo Family History Records FoundNo Family History Records FoundNo Family History Records FoundNo Family History Records Found Advance Directives No Advanced Directives Records FoundDocuments on File Type Date Recorded Patient Equities Trader Expl anation Advance Directive(s) 08/16/2020 1:32 PM Advance Directive(s) 08/06/2020 9:17 AM Advance Directive(s) 05/05/2019 11:23 AM Advance Directive(s) 05/05/2019 11:27 AM Advance Directive(s) 03/17/2019 2:21 PM Advance Directive(s) 12/15/2018 11:36 AM Advance Directive(s) 11/23/2018 2:18 PM Advance Directive(s) 10/04/2018 7:45 AM Advance Directive(s) 11/09/2017 7:52 AM Documents on File Type Date Recorded Patient Equities Trader Expl anation Advance Directive(s) 08/16/2020 1:32 PM Advance Directive(s) 08/06/2020 9:17 AM Advance Directive(s) 05/05/2019 11:23 AM Advance Directive(s) 05/05/2019 11:27 AM Advance Directive(s) 03/17/2019 2:21 PM Advance Directive(s) 12/15/2018 11:36 AM Advance Directive(s) 11/23/2018 2:18 PM Advance Directive(s) 10/04/2018 7:45 AM Advance Directive(s) 11/09/2017 7:52 AM Documents on File Type Date Recorded Patient Equities Trader Expl anation Advance Directive(s) 11/21/2021 12:55 PM [...] No February 16, 2022 6:26pm Power of Stock Handler No January 6:26pm Advance Directive Response Recorded Date/ Time Advance Directives Yes June 20, 2017 8:56pm Living Will No February 21, 2022 1:16am Power of Stock Handler No January 1:16am Advance Directive Response Recorded Date/ Time Advance Directives Yes June 20, 2017 8:56pm Living Will No February 28 5:40am Power of Stock Handler No February 28 5:40am Documents on File Type Date Recorded Patient Equities Trader Expl anation Advance Directive(s) 08/28/2022 2:42 PM Documents on File Type Date Recorded Patient Equities Trader Expl anation Advance Directive(s) 08/28/2022 2:42 PM Advance Directive Response Recorded Date/ Time Advance Directives Yes June 20, 2017 8:56pm Living Will Yes February 26, 2023 5:38pm Power of Stock Handler Yes January 5:38pm Name of Medical Power of Stock Handler Reynaldo Davenport February 26, 2023 5:38pm Advance Directive Response Recorded Date/ Time Name of Medical Power of Stock Handler Reynaldo Davenport February 26, 2023 4:38pm Name of Medical Power of Stock Handler hardy black--[phone] June 12, 2023 7:20pm Advance Directives Yes June 20, 2017 7:56pm Living Will Yes June 12 7:20pm Power of Stock Handler Yes June 12, 2023 7:20pm Documents on File Type Date Recorded Patient Equities Trader Expl anation Advance Directive(s) 08/28/2022 2:42 PM Hardy Black Documents on File Type Date Recorded Patient Equities Trader Expl anation Advance Directive(s) 08/28/2022 2:42 PM Hardy Black Date Activated Date Inactivated Comments 05/06/2024 5:25 AM Question Answer Comments Full Code Order Discussed With: Patient Date Activated Date Inactivated Comments 05/08/2024 11:35 AM Question Answer Comments DNR Order Discussed With: Surrogate Decision Cesario er Surrogate Decision Maker Name: hardy cardoso Surrogate Decision Maker Relationship: Health Ca re Power of Stock Handler Agent Date Activated Date Inactivated Comments 05/08/2024 11:15 AM 05/08/2024 11:35 AM Question Answer Comments DNR Order Discussed With: Surrogate Decision Cesario er Surrogate Decision Maker Name: Hardy Black Surrogate Decision Maker Phone: [phone] Date Activated Date Inactivated Comments 05/06/2024 5:25 [...] Maker Relationship: Health Ca re Power of Stock Handler Agent Date Activated Date Inactivated Comments 05/08/2024 11:15 AM 05/08/2024 11:35 AM Question Answer Comments DNR Order Discussed With: Surrogate Decision Cesario er Surrogate Decision Maker Name: Hardy Black Surrogate Decision Maker Phone: [phone] Date Activated Date Inactivated Comments 05/06/2024 5:25 AM 05/08/2024 11:15 AM Question Answer Comments Full Code Order Discussed With: Patient Advance Directive Response Recorded Date/ Time Living Will Yes May 05 11:59pm Do you have a Healthcare Power of Stock Handler? Yes May 05, 2024 11:59pm Name of Medical Power of Stock Handler HARDY May 05, 2024 11:59pm Advance Directives Yes June 20, 2017 8:56pm Advance Directive Response Recorded Date/ Time Advance Directives Yes June 20, 2017 8:56pm Procedure Findings Note HNO ID: [id number] Author: Candie Prado Service: Urogynecology Author Type: Physician Type: Operative Report Filed: 06/12/2019 9:29 AM Note Text: OPERATIVE / PROCEDURE NOTE LOG ID: [id number] Surgery/Procedure Date: 06/12/2019 Incision/Procedure Start Time: 7:46 AM Incision Close/Procedure End Time: 8:06 AM Surgeon(s)/Proceduralist(s) and Street Worker(s): Surgeon(s) and Role: * Esther Prado - Primary * Chaparrita Waite MD (Fel) - Fellow No Additional Staff Procedure(s): Exam under anesthesia, Vulvar biopsies Anesthesia: MAC Findings: 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 Extensive erythema with beefy red and inflammed appearing labia majora and perianal skin in a axabdh-vz-ckibq pattern. Skin is shiny and taut. Mildly thickened, white, stellate lesions noted at 9:00 and 3:00 on the labia majora (each approximately 8 mm in size) and 7:00 at the region of the labia minora about 1.5 cm distal to the introitus (approx 10 mm in size), and las (more content not included)... 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 Extensive erythema with beefy red and inflammed appearing labia majora and perianal skin in a jilgnf-my-edfcr pattern. Mildly thickened, white, stellate lesions noted [...] Complaint fall weakness Chief Complaint Admit Date FALL May 05, 2024 1 0:59pm LAB WORK May 22, 2024 5:00am LAB WORK May 23, 2024 12:15am LAB WORK May 29, 2024 5:00am LABWORK June 05, 2024 5: 00am SNF LAB WORK June 09, 2024 5:45am SNF LAB WORK June 20, 2024 5:00am LAB WORK July 10, 2024 4:00am LAB WORK July 25, 2024 4:00am SNF LAB WORK August 08, 2024 5 :00am Chief Complaint Admit Date fallMay 05, 2024 1 0:59pm LAB WORK May 22, 2024 5:00am LAB WORK May 23, 2024 12:15am LAB WORK May 29, 2024 5:00am LABWORK June 05, 2024 5: 00am SNF LAB WORK June 09, 2024 5:45am SNF LAB WORK June 20, 2024 5:00am LAB WORK July 10, 2024 4:00am LAB WORK July 25, 2024 4:00am SNF LAB WORK August 08, 2024 5 :00am SNF LAB WORK August 11, 2024 5 :00am Chief Complaint Admit Date SNF LAB WORK June 20, 2024 5:00am LAB WORK July 10, 2024 4:00am LAB WORK July 25, 2024 4:00am SNF LAB WORK August 08, 2024 5 :00am SNF LAB WORK August 11, 2024 5 :00am LABWORK September 21, 2024 5:0 0am Chief Complaint Admit Date LAB WORK July 10, 2024 4:00am LAB WORK July 25, 2024 4:00am SNF LAB WORK August 08, 2024 5 :00am SNF LAB WORK August 11, 2024 5 :00am SNF LAB WORK September 11, 2024 9 :45pm LABWORK September 21, 2024 5:0 0am SNF LAB WORK September 26, 2024 4 :00am Reason for Referral Specialty Diagnoses / Procedures Referred By Contac t Referred To Contact Orthopedics Diagnoses Open fracture of tuft of distal phalanx of finger Procedures CONSULT PANEL TO ORTHOPAEDICS OFFICE/OUTPATIENT [facility] MDM 60-74 MINUTES Janae Sandoval, GM.WOOD BOAT BUILDER SUPERVISOR [address] [place] [address] Referral ID Status Reason Start Date Expiration Date Visits Requested Visits Authorized [id number] Pending Review PCP Requested Referral 05/06/2022 05/06/2023 1 1 Specialty Diagnoses / Procedures Referred By Contac t Referred To Contact XR IMAGING Diagnoses Crushing injury of right middle finger, initial encounter Procedures XR DIGIT GENERAL 3V FRONTAL/LAT/OBL RIGHT RADEX FINGR MINIMUM 2 VIEWS Janae Sandoval, GM.WOOD BOAT BUILDER SUPERVISOR [address] [place] [address] Xr Imaging Referral ID Status Reason Start Date Expiration Date V isits Requested Visits Authorized [id number] Closed Auto-Generate d Referral 05/06/2022 06/05/2023 1 1 Specialty Diagnoses / Procedures Referred By Contac t Referred To Contact [facility] Diagnoses Spinal stenosis of lumbar region, unspecified whether neurogenic claudication present Lumbar spondylosis Radiculopathy, lumbar region Spondylolisthesis of lumbar region Procedures CONSULT TO PHYSICAL THERAPY PHYSICAL THERAPY EVALUATION HIGH COMPLEX 45 MINS Oralia Garcia, SOLE TIER.WOOD BOAT BUILDER SUPERVISOR [address] [place] [address] [facility] [place] [address] [place] [address] Referral ID Status Reason Start Date Expiration Date Visits Requested Visits Authorized [id number] Pending Review Auto-Generat ed Referral 08/04/2022 08/04/2023 1 1 Specialty Diagnoses / Procedures Referred By Contac t Referred To Contact [facility] Diagnoses Spinal stenosis of lumbar region, unspecified whether neurogenic claudication present Lumbar spondylosis Radiculopathy, lumbar region Spondylolisthesis of lumbar region Procedures PT REHAB FOLLOW UP ORDER THERAPEUTIC EXERCISES RE, EA 15 MIN. Pt [facility] [address] [place] [address] [facility] [place] [address] [place], [place] [id number] Referral ID Status Reason Start Date Expiration Date Visits Requested Visits Authorized [id number] Pending Review PCP Requested Referral Auto-Generate d Referral 08/18/2022 11/16/2022 1 1 Specialty Diagnoses / Procedures Referred By Contac t Referred To Contact Cardiology Diagnoses Irregular heart rhythm FIELD (dyspnea on exertion) Premature atrial complexes Procedures CONSULT TO CARDIOLOGY OFFICE/OUTPATIENT [facility] 60-[place] [address] [place] [address] Maykel Whitfield, DO [address] [address] Referral ID Status Reason Start Date Expiration Date Visits Requested Visits Authorized [id number] Pending Review PCP Requested Referral 08/15/2022 08/15/2023 1 1 Specialty Diagnoses / Procedures Referred By Contac t Referred To Contact [facility] [place] Diagnoses Bilateral carotid artery stenosis Procedures US CAROTID ARTERIES POLO VAS LAB DUPLEX SCAN EXTRACRANIAL ART COMPL BI STUDY Guillaume Dominguez MD [address] [place] [address] [facility] [place] [address] [place] [address] Referral ID Status Reason Start Date Expiration Date Visits Requested Visits Authorized [id number] Pending Review Auto-Generat ed Referral 08/15/2022 08/15/2023 1 1 Specialty Diagnoses / Procedures Referred By Contac t Referred To Contact [facility] [place] Diagnoses Irregular heart rhythm FIELD (dyspnea on exertion) Procedures ECG COMPLETE ECG ROUTINE ECG W/LEAST 12 LDS W/I&R Guillaume Dominguez MD [address] [place] [address] [facility] [place] [address] [place] [address] Referral ID Status Reason Start Date Expiration Date V isits Requested Visits Authorized [id number] Closed Auto-Generate d Referral 08/15/2022 08/15/2023 1 1 Specialty Diagnoses / Procedures Referred By Contac t Referred To Contact [facility] Diagnoses Spinal stenosis of lumbar region, unspecified whether neurogenic claudication present Lumbar spondylosis Spondylolisthesis of lumbar region Radiculopathy, lumbar region Procedures PT REHAB FOLLOW UP ORDER THERAPEUTIC EXERCISES RE, EA 15 MIN. Self [facility] [address] [address] Referral ID Status Reason Start Date Expiration Date V isits Requested Visits Authorized [id number] Closed PCP Requested Referral Auto-Generated Referral 09/17/2022 12/16/2022 1 1 Specialty Diagnoses / Procedures Referred By Contac t Referred To Contact BR IMAGING Diagnoses Breast cancer screening by mammogram Procedures ARTIS SCREENING SCREENING MAMMOGRAPHY BI 2-VIEW BREAST INC CAD Guillaume Dominguez MD [address] [place] [address] [facility] Imaging [address] [place] [phone] Referral ID Status Reason Start Date Expiration Date Visits Requested Visits Authorized [id number] Pending Review Auto-Generat ed Referral 3 08/12/2023 3 1 Specialty Diagnoses / Procedures Referred By Contac t Referred To Contact Diagnoses Mild cognitive impairment Procedures CONSULT TO [facility] OFFICE/OUTPATIENT [facility] 60 MINUTES Martha Germain DO [address] [place] [address] Referral ID Status Reason Start Date Expiration Date Visits Requested Visits Authorized [id number] Authorized PCP Requested Referral 08/11/2023 08/10/2024 1 1 Specialty Diagnoses / Procedures Referred By Contac t Referred To Contact Gerontology Diagnoses Mild cognitive impairment Procedures CONSULT TO GERIATRICS OFFICE/OUTPATIENT [facility] 60 MINUTES Martha Germain DO [address] [place] [address] Referral ID Status Reason Start Date Expiration Date Visits Requested Visits Authorized [id number] Authorized PCP Requested Referral 08/11/2023 08/10/2024 1 1 Specialty Diagnoses / Procedures Referred By Contac t Referred To Contact Radha Walters MD [address] [place] [address] Referral ID Status Reason Start Date Expiration Date V isits Requested Visits Authorized [id number] Authorized 05/31/2023 05/30/2024 1 1 Specialty Diagnoses / Procedures Referred By Contac t Referred To Contact Gerontology Diagnoses Cognitive impairment Procedures CONSULT TO GERIATRICS OFFICE/OUTPATIENT [facility] 60 MINUTES Guillaume Dominguez MD [address] [place] [address] Damaris Knott MD [address] [place] [address] Referral ID Status Reason Start Date Expiration Date Visits Requested Visits Authorized [id number] Authorized PCP Requested Referral 12/10/2023 12/09/2024 1 1 Additional Source Comments INFORMATION SOURCE (unrecogn ized section and content) DATE CREATED AUTHOR 11/18/2017 [facility] DATE CREATED AUTHOR AUTHOR'S ORGANIZ ATION 10/17/2018 [facility] DATE CREATED AUTHOR AUTHOR'S ORGANIZ ATION 06/27/2019 [place] [facility] DATE CREATED AUTHOR AUTHOR'S ORGANIZ ATION 03/31/2024 [facility] DATE CREATED AUTHOR AUTHOR'S ORGANIZ ATION 08/04/2024 [facility] DATE CREATED AUTHOR AUTHOR'S ORGANIZ ATION 08/05/2024 [facility] DATE CREATED AUTHOR AUTHOR'S ORGANIZ ATION 12/26/2024 [facility] DATE CREATED AUTHOR AUTHOR'S ORGANIZ ATION 03/30/2025 [facility] Comments (unrecognize d section and content) In the event this informatio n is protected by the Federal Confidentiality of Alcohol and Drug Abuse Patient Records regulations: The Federal rules restrict any use of the information to criminally investigate or prosecute any alcohol or drug abuse patient.[facility] the event this information is protected by the Federal Confidentiality of Alcohol and Drug Abuse Patient Records regulations: The Federal rules restrict any use of the information to criminally investigate or prosecute any alcohol or drug abuse patient.[facility]In the event this information is protected by the Federal Confidentiality of Alcohol and Drug Abuse Patient Records regulations: The Federal rules restrict any use of the information to criminally investigate or prosecute any alcohol or drug abuse patient.[facility]In the event this information is protected by the Federal Confidentiality of Alcohol and Drug Abuse Patient Records regulations: The Federal rules restrict any use of the information to criminally investigate or prosecute any alcohol or drug abuse patient.[facility] HospitalIn the event this information is protected by the Federal Confidentiality of Alcohol and Drug Abuse Patient Records regulations: The Federal rules restrict any use of the information to criminally investigate or prosecute any alcohol or drug abuse patient.[facility] HospitalIn the event this information is protected by the Federal Confidentiality of Alcohol and Drug Abuse Patient Records regulations: The Federal rules restrict any use of the information to criminally investigate or prosecute any alcohol or drug abuse patient.[facility] HospitalIn the event this information is protected by the Federal Confidentiality of Alcohol and Drug Abuse Patient Records regulations: The Federal rules restrict any use of the information to criminally investigate or prosecute any alcohol or drug abuse patient.[facility] HospitalIn the event this information is protected by the Federal Confidentiality of Alcohol and Drug Abuse Patient Records regulations: The Federal rules restrict any use of the information to criminally investigate or prosecute any alcohol or drug abuse patient.[facility]In the event this information is protected by the Federal Confidentiality of Alcohol and Drug Abuse Patient Records regulations: The Federal rules restrict any use of the information to criminally investigate or prosecute any alcohol or drug abuse patient.[facility] HospitalIn the event this information is protected by the Federal Confidentiality of Alcohol and Drug Abuse Patient Records regulations: The Federal rules restrict any use of the information to criminally investigate or prosecute any alcohol or drug abuse patient.[facility] HospitalIn the event this information is protected by the Federal Confidentiality of Alcohol and Drug Abuse Patient Records regulations: The Federal rules restrict any use of the information to criminally investigate or prosecute any alcohol or drug abuse patient.[facility] HospitalIn the event this information is protected by the Federal Confidentiality of Alcohol and Drug Abuse Patient Records regulations: The Federal rules restrict any use of the information to criminally investigate or prosecute any alcohol or drug abuse patient.[facility] HospitalIn the event this information is protected by the Federal Confidentiality of Alcohol and Drug Abuse Patient Records regulations: The Federal rules restrict any use of the information to criminally investigate or prosecute any alcohol or drug abuse patient.[facility] HospitalIn the event this information is protected by the Federal Confidentiality of Alcohol and Drug Abuse Patient Records regulations: The Federal rules restrict any use of the information to criminally investigate or prosecute any alcohol or drug abuse patient.[facility] HospitalIn the event this information is protected by the Federal Confidentiality of Alcohol and Drug Abuse Patient Records regulations: The Federal rules restrict any use of the information to criminally investigate or prosecute any alcohol or drug abuse patient.[facility] HospitalIn the event this information is protected by the Federal Confidentiality of Alcohol and Drug Abuse Patient Records regulations: The Federal rules restrict any use of the information to criminally investigate or prosecute any alcohol or drug abuse patient.[facility] HospitalIn the event this information is protected by the Federal Confidentiality of Alcohol and Drug Abuse Patient Records regulations: The Federal rules restrict any use of the information to criminally investigate or prosecute any alcohol or drug abuse patient.[facility] HospitalIn the event this information is protected by the Federal Confidentiality of Alcohol and Drug Abuse Patient Records regulations: The Federal rules restrict any use of the information to criminally investigate or prosecute any alcohol or drug abuse patient.[facility] HospitalIn the event this information is protected by the Federal Confidentiality of Alcohol and Drug Abuse Patient Records regulations: The Federal rules restrict any use of the information to criminally investigate or prosecute any alcohol or drug abuse patient.[facility] HospitalIn the event this information is protected by the Federal Confidentiality of Alcohol and Drug Abuse Patient Records regulations: The Federal rules restrict any use of the information to criminally investigate or prosecute any alcohol or drug abuse patient.[facility] HospitalIn the event this information is protected by the Federal Confidentiality of Alcohol and Drug Abuse Patient Records regulations: The Federal rules restrict any use of the information to criminally investigate or prosecute any alcohol or drug abuse patient.[facility] HospitalIn the event this information is protected by the Federal Confidentiality of Alcohol and Drug Abuse Patient Records regulations: The Federal rules restrict any use of the information to criminally investigate or prosecute any alcohol or drug abuse patient.[facility] HospitalIn the event this information is protected by the Federal Confidentiality of Alcohol and Drug Abuse Patient Records regulations: The Federal rules restrict any use of the information to criminally investigate or prosecute any alcohol or drug abuse patient.[facility] HospitalIn the event this information is protected by the Federal Confidentiality of Alcohol and Drug Abuse Patient Records regulations: The Federal rules restrict any use of the information to criminally investigate or prosecute any alcohol or drug abuse patient.[facility] HospitalIn the event this information is protected by the Federal Confidentiality of Alcohol and Drug Abuse Patient Records regulations: The Federal rules restrict any use of the information to criminally investigate or prosecute any alcohol or drug abuse patient.[facility] HospitalIn the event this information is protected by the Federal Confidentiality of Alcohol and Drug Abuse Patient Records regulations: The Federal rules restrict any use of the information to criminally investigate or prosecute any alcohol or drug abuse patient.[facility] HospitalIn the event this information is protected by the Federal Confidentiality of Alcohol and Drug Abuse Patient Records regulations: The Federal rules restrict any use of the information to criminally investigate or prosecute any alcohol or drug abuse patient.[facility] HospitalIn the event this information is protected by the Federal Confidentiality of Alcohol and Drug Abuse Patient Records regulations: The Federal rules restrict any use of the information to criminally investigate or prosecute any alcohol or drug abuse patient.[facility] HospitalIn the event this information is protected by the Federal Confidentiality of Alcohol and Drug Abuse Patient Records regulations: The Federal rules restrict any use of the information to criminally investigate or prosecute any alcohol or drug abuse patient.[facility] HospitalIn the event this information is protected by the Federal Confidentiality of Alcohol and Drug Abuse Patient Records regulations: The Federal rules restrict any use of the information to criminally investigate or prosecute any alcohol or drug abuse patient.[facility] HospitalIn the event this information is protected by the Federal Confidentiality of Alcohol and Drug Abuse Patient Records regulations: The Federal rules restrict any use of the information to criminally investigate or prosecute any alcohol or drug abuse patient.[facility] HospitalIn the event this information is protected by the Federal Confidentiality of Alcohol and Drug Abuse Patient Records regulations: The Federal rules restrict any use of the information to criminally investigate or prosecute any alcohol or drug abuse patient.[facility] HospitalIn the event this information is protected by the Federal Confidentiality of Alcohol and Drug Abuse Patient Records regulations: The Federal rules restrict any use of the information to criminally investigate or prosecute any alcohol or drug abuse patient.[facility] HospitalIn the event this information is protected by the Federal Confidentiality of Alcohol and Drug Abuse Patient Records regulations: The Federal rules restrict any use of the information to criminally investigate or prosecute any alcohol or drug abuse patient.[facility] HospitalIn the event this information is protected by the Federal Confidentiality of Alcohol and Drug Abuse Patient Records regulations: The Federal rules restrict any use of the information to criminally investigate or prosecute any alcohol or drug abuse patient.[facility] HospitalIn the event this information is protected by the Federal Confidentiality of Alcohol and Drug Abuse Patient Records regulations: The Federal rules restrict any use of the information to criminally investigate or prosecute any alcohol or drug abuse patient.[facility] HospitalIn the event this information is protected by the Federal Confidentiality of Alcohol and Drug Abuse Patient Records regulations: The Federal rules restrict any use of the information to criminally investigate or prosecute any alcohol or drug abuse patient.[facility] HospitalIn the event this information is protected by the Federal Confidentiality of Alcohol and Drug Abuse Patient Records regulations: The Federal rules restrict any use of the information to criminally investigate or prosecute any alcohol or drug abuse patient.[facility] HospitalIn the event this information is protected by the Federal Confidentiality of Alcohol and Drug Abuse Patient Records regulations: The Federal rules restrict any use of the information to criminally investigate or prosecute any alcohol or drug abuse patient.[facility] HospitalIn the event this information is protected by the Federal Confidentiality of Alcohol and Drug Abuse Patient Records regulations: The Federal rules restrict any use of the information to criminally investigate or prosecute any alcohol or drug abuse patient.[facility] HospitalIn the event this information is protected by the Federal Confidentiality of Alcohol and Drug Abuse Patient Records regulations: The Federal rules restrict any use of the information to criminally investigate or prosecute any alcohol or drug abuse patient.[facility] HospitalIn the event this information is protected by the Federal Confidentiality of Alcohol and Drug Abuse Patient Records regulations: The Federal rules restrict any use of the information to criminally investigate or prosecute any alcohol or drug abuse patient.[facility] HospitalIn the event this information is protected by the Federal Confidentiality of Alcohol and Drug Abuse Patient Records regulations: The Federal rules restrict any use of the information to criminally investigate or prosecute any alcohol or drug abuse patient.[facility] HospitalIn the event this information is protected by the Federal Confidentiality of Alcohol and Drug Abuse Patient Records regulations: The Federal rules restrict any use of the information to criminally investigate or prosecute any alcohol or drug abuse patient.[facility] HospitalIn the event this information is protected by the Federal Confidentiality of Alcohol and Drug Abuse Patient Records regulations: The Federal rules restrict any use of the information to criminally investigate or prosecute any alcohol or drug abuse patient.[facility] HospitalIn the event this information is protected by the Federal Confidentiality of Alcohol and Drug Abuse Patient Records regulations: The Federal rules restrict any use of the information to criminally investigate or prosecute any alcohol or drug abuse patient.[facility] HospitalIn the event this information is protected by the Federal Confidentiality of Alcohol and Drug Abuse Patient Records regulations: The Federal rules restrict any use of the information to criminally investigate or prosecute any alcohol or drug abuse patient.[facility] HospitalIn the event this information is protected by the Federal Confidentiality of Alcohol and Drug Abuse Patient Records regulations: The Federal rules restrict any use of the information to criminally investigate or prosecute any alcohol or drug abuse patient.[facility] HospitalIn the event this information is protected by the Federal Confidentiality of Alcohol and Drug Abuse Patient Records regulations: The Federal rules restrict any use of the information to criminally investigate or prosecute any alcohol or drug abuse patient.[facility] HospitalIn the event this information is protected by the Federal Confidentiality of Alcohol and Drug Abuse Patient Records regulations: The Federal rules restrict any use of the information to criminally investigate or prosecute any alcohol or drug abuse patient.[facility] HospitalIn the event this information is protected by the Federal Confidentiality of Alcohol and Drug Abuse Patient Records regulations: The Federal rules restrict any use of the information to criminally investigate or prosecute any alcohol or drug abuse patient.[facility] HospitalIn the event this information is protected by the Federal Confidentiality of Alcohol and Drug Abuse Patient Records regulations: The Federal rules restrict any use of the information to criminally investigate or prosecute any alcohol or drug abuse patient.[facility] HospitalIn the event this information is protected by the Federal Confidentiality of Alcohol and Drug Abuse Patient Records regulations: The Federal rules restrict any use of the information to criminally investigate or prosecute any alcohol or drug abuse patient.[facility] HospitalIn the event this information is protected by the Federal Confidentiality of Alcohol and Drug Abuse Patient Records regulations: The Federal rules restrict any use of the information to criminally investigate or prosecute any alcohol or drug abuse patient.[facility] HospitalIn the event this information is protected by the Federal Confidentiality of Alcohol and Drug Abuse Patient Records regulations: The Federal rules restrict any use of the information to criminally investigate or prosecute any alcohol or drug abuse patient.[facility] HospitalIn the event this information is protected by the Federal Confidentiality of Alcohol and Drug Abuse Patient Records regulations: The Federal rules restrict any use of the information to criminally investigate or prosecute any alcohol or drug abuse patient.[facility] HospitalIn the event this information is protected by the Federal Confidentiality of Alcohol and Drug Abuse Patient Records regulations: The Federal rules restrict any use of the information to criminally investigate or prosecute any alcohol or drug abuse patient.[facility] HospitalIn the event this information is protected by the Federal Confidentiality of Alcohol and Drug Abuse Patient Records regulations: The Federal rules restrict any use of the information to criminally investigate or prosecute any alcohol or drug abuse patient.[facility] HospitalIn the event this information is protected by the Federal Confidentiality of Alcohol and Drug Abuse Patient Records regulations: The Federal rules restrict any use of the information to criminally investigate or prosecute any alcohol or drug abuse patient.[facility] HospitalIn the event this information is protected by the Federal Confidentiality of Alcohol and Drug Abuse Patient Records regulations: The Federal rules restrict any use of the information to criminally investigate or prosecute any alcohol or drug abuse patient.[facility] HospitalIn the event this information is protected by the Federal Confidentiality of Alcohol and Drug Abuse Patient Records regulations: The Federal rules restrict any use of the information to criminally investigate or prosecute any alcohol or drug abuse patient.[facility] HospitalIn the event this information is protected by the Federal Confidentiality of Alcohol and Drug Abuse Patient Records regulations: The Federal rules restrict any use of the information to criminally investigate or prosecute any alcohol or drug abuse patient.[facility] HospitalIn the event this information is protected by the Federal Confidentiality of Alcohol and Drug Abuse Patient Records regulations: The Federal rules restrict any use of the information to criminally investigate or prosecute any alcohol or drug abuse patient.[facility] HospitalIn the event this information is protected by the Federal Confidentiality of Alcohol and Drug Abuse Patient Records regulations: The Federal rules restrict any use of the information to criminally investigate or prosecute any alcohol or drug abuse patient.[facility] HospitalIn the event this information is protected by the Federal Confidentiality of Alcohol and Drug Abuse Patient Records regulations: The Federal rules restrict any use of the information to criminally investigate or prosecute any alcohol or drug abuse patient.[facility] HospitalIn the event this information is protected by the Federal Confidentiality of Alcohol and Drug Abuse Patient Records regulations: The Federal rules restrict any use of the information to criminally investigate or prosecute any alcohol or drug abuse patient.[facility] HospitalIn the event this information is protected by the Federal Confidentiality of Alcohol and Drug Abuse Patient Records regulations: The Federal rules restrict any use of the information to criminally investigate or prosecute any alcohol or drug abuse patient.[facility] HospitalIn the event this information is protected by the Federal Confidentiality of Alcohol and Drug Abuse Patient Records regulations: The Federal rules restrict any use of the information to criminally investigate or prosecute any alcohol or drug abuse patient.[facility] HospitalIn the event this information is protected by the Federal Confidentiality of Alcohol and Drug Abuse Patient Records regulations: The Federal rules restrict any use of the information to criminally investigate or prosecute any alcohol or drug abuse patient.[facility] HospitalIn the event this information is protected by the Federal Confidentiality of Alcohol and Drug Abuse Patient Records regulations: The Federal rules restrict any use of the information to criminally investigate or prosecute any alcohol or drug abuse patient.[facility] HospitalIn the event this information is protected by the Federal Confidentiality of Alcohol and Drug Abuse Patient Records regulations: The Federal rules restrict any use of the information to criminally investigate or prosecute any alcohol or drug abuse patient.[facility] HospitalIn the event this information is protected by the Federal Confidentiality of Alcohol and Drug Abuse Patient Records regulations: The Federal rules restrict any use of the information to criminally investigate or prosecute any alcohol or drug abuse patient.[facility] HospitalIn the event this information is protected by the Federal Confidentiality of Alcohol and Drug Abuse Patient Records regulations: The Federal rules restrict any use of the information to criminally investigate or prosecute any alcohol or drug abuse patient.[facility] HospitalIn the event this information is protected by the Federal Confidentiality of Alcohol and Drug Abuse Patient Records regulations: The Federal rules restrict any use of the information to criminally investigate or prosecute any alcohol or drug abuse patient.[facility] HospitalIn the event this information is protected by the Federal Confidentiality of Alcohol and Drug Abuse Patient Records regulations: The Federal rules restrict any use of the information to criminally investigate or prosecute any alcohol or drug abuse patient.[facility] HospitalIn the event this information is protected by the Federal Confidentiality of Alcohol and Drug Abuse Patient Records regulations: The Federal rules restrict any use of the information to criminally investigate or prosecute any alcohol or drug abuse patient.[facility] HospitalIn the event this information is protected by the Federal Confidentiality of Alcohol and Drug Abuse Patient Records regulations: The Federal rules restrict any use of the information to criminally investigate or prosecute any alcohol or drug abuse patient.[facility] HospitalIn the event this information is protected by the Federal Confidentiality of Alcohol and Drug Abuse Patient Records regulations: The Federal rules restrict any use of the information to criminally investigate or prosecute any alcohol or drug abuse patient.[facility] HospitalIn the event this information is protected by the Federal Confidentiality of Alcohol and Drug Abuse Patient Records regulations: The Federal rules restrict any use of the information to criminally investigate or prosecute any alcohol or drug abuse patient.[facility] HospitalIn the event this information is protected by the Federal Confidentiality of Alcohol and Drug Abuse Patient Records regulations: The Federal rules restrict any use of the information to criminally investigate or prosecute any alcohol or drug abuse patient.[facility] HospitalIn the event this information is protected by the Federal Confidentiality of Alcohol and Drug Abuse Patient Records regulations: The Federal rules restrict any use of the information to criminally investigate or prosecute any alcohol or drug abuse patient.[facility] HospitalIn the event this information is protected by the Federal Confidentiality of Alcohol and Drug Abuse Patient Records regulations: The Federal rules restrict any use of the information to criminally investigate or prosecute any alcohol or drug abuse patient.[facility] HospitalIn the event this information is protected by the Federal Confidentiality of Alcohol and Drug Abuse Patient Records regulations: The Federal rules restrict any use of the information to criminally investigate or prosecute any alcohol or drug abuse patient.[facility] HospitalIn the event this information is protected by the Federal Confidentiality of Alcohol and Drug Abuse Patient Records regulations: The Federal rules restrict any use of the information to criminally investigate or prosecute any alcohol or drug abuse patient.[facility] HospitalIn the event this information is protected by the Federal Confidentiality of Alcohol and Drug Abuse Patient Records regulations: The Federal rules restrict any use of the information to criminally investigate or prosecute any alcohol or drug abuse patient.[facility] HospitalIn the event this information is protected by the Federal Confidentiality of Alcohol and Drug Abuse Patient Records regulations: The Federal rules restrict any use of the information to criminally investigate or prosecute any alcohol or drug abuse patient.[facility] HospitalIn the event this information is protected by the Federal Confidentiality of Alcohol and Drug Abuse Patient Records regulations: The Federal rules restrict any use of the information to criminally investigate or prosecute any alcohol or drug abuse patient.[facility] HospitalIn the event this information is protected by the Federal Confidentiality of Alcohol and Drug Abuse Patient Records regulations: The Federal rules restrict any use of the information to criminally investigate or prosecute any alcohol or drug abuse patient.[facility] HospitalIn the event this information is protected by the Federal Confidentiality of Alcohol and Drug Abuse Patient Records regulations: The Federal rules restrict any use of the information to criminally investigate or prosecute any alcohol or drug abuse patient.[facility] HospitalIn the event this information is protected by the Federal Confidentiality of Alcohol and Drug Abuse Patient Records regulations: The Federal rules restrict any use of the information to criminally investigate or prosecute any alcohol or drug abuse patient.[facility] HospitalIn the event this information is protected by the Federal Confidentiality of Alcohol and Drug Abuse Patient Records regulations: The Federal rules restrict any use of the information to criminally investigate or prosecute any alcohol or drug abuse patient.[facility] HospitalIn the event this information is protected by the Federal Confidentiality of Alcohol and Drug Abuse Patient Records regulations: The Federal rules restrict any use of the information to criminally investigate or prosecute any alcohol or drug abuse patient.[facility] HospitalIn the event this information is protected by the Federal Confidentiality of Alcohol and Drug Abuse Patient Records regulations: The Federal rules restrict any use of the information to criminally investigate or prosecute any alcohol or drug abuse patient.[facility] HospitalIn the event this information is protected by the Federal Confidentiality of Alcohol and Drug Abuse Patient Records regulations: The Federal rules restrict any use of the information to criminally investigate or prosecute any alcohol or drug abuse patient.[facility] HospitalIn the event this information is protected by the Federal Confidentiality of Alcohol and Drug Abuse Patient Records regulations: The Federal rules restrict any use of the information to criminally investigate or prosecute any alcohol or drug abuse patient.[facility] HospitalIn the event this information is protected by the Federal Confidentiality of Alcohol and Drug Abuse Patient Records regulations: The Federal rules restrict any use of the information to criminally investigate or prosecute any alcohol or drug abuse patient.[facility] HospitalIn the event this information is protected by the Federal Confidentiality of Alcohol and Drug Abuse Patient Records regulations: The Federal rules restrict any use of the information to criminally investigate or prosecute any alcohol or drug abuse patient.[facility] HospitalIn the event this information is protected by the Federal Confidentiality of Alcohol and Drug Abuse Patient Records regulations: The Federal rules restrict any use of the information to criminally investigate or prosecute any alcohol or drug abuse patient.[facility] HospitalIn the event this information is protected by the Federal Confidentiality of Alcohol and Drug Abuse Patient Records regulations: The Federal rules restrict any use of the information to criminally investigate or prosecute any alcohol or drug abuse patient.[facility] HospitalIn the event this information is protected by the Federal Confidentiality of Alcohol and Drug Abuse Patient Records regulations: The Federal rules restrict any use of the information to criminally investigate or prosecute any alcohol or drug abuse patient.[facility] HospitalIn the event this information is protected by the Federal Confidentiality of Alcohol and Drug Abuse Patient Records regulations: The Federal rules restrict any use of the information to criminally investigate or prosecute any alcohol or drug abuse patient.[facility] HospitalIn the event this information is protected by the Federal Confidentiality of Alcohol and Drug Abuse Patient Records regulations: The Federal rules restrict any use of the information to criminally investigate or prosecute any alcohol or drug abuse patient.[facility] HospitalIn the event this information is protected by the Federal Confidentiality of Alcohol and Drug Abuse Patient Records regulations: The Federal rules restrict any use of the information to criminally investigate or prosecute any alcohol or drug abuse patient.[facility] HospitalIn the event this information is protected by the Federal Confidentiality of Alcohol and Drug Abuse Patient Records regulations: The Federal rules restrict any use of the information to criminally investigate or prosecute any alcohol or drug abuse patient.[facility] HospitalIn the event this information is protected by the Federal Confidentiality of Alcohol and Drug Abuse Patient Records regulations: The Federal rules restrict any use of the information to criminally investigate or prosecute any alcohol or drug abuse patient.[facility] HospitalIn the event this information is protected by the Federal Confidentiality of Alcohol and Drug Abuse Patient Records regulations: The Federal rules restrict any use of the information to criminally investigate or prosecute any alcohol or drug abuse patient.[facility] HospitalIn the event this information is protected by the Federal Confidentiality of Alcohol and Drug Abuse Patient Records regulations: The Federal rules restrict any use of the information to criminally investigate or prosecute any alcohol or drug abuse patient.[facility] HospitalIn the event this information is protected by the Federal Confidentiality of Alcohol and Drug Abuse Patient Records regulations: The Federal rules restrict any use of the information to criminally investigate or prosecute any alcohol or drug abuse patient.[facility] HospitalIn the event this information is protected by the Federal Confidentiality of Alcohol and Drug Abuse Patient Records regulations: The Federal rules restrict any use of the information to criminally investigate or prosecute any alcohol or drug abuse patient.[facility] HospitalIn the event this information is protected by the Federal Confidentiality of Alcohol and Drug Abuse Patient Records regulations: The Federal rules restrict any use of the information to criminally investigate or prosecute any alcohol or drug abuse patient.[facility] HospitalIn the event this information is protected by the Federal Confidentiality of Alcohol and Drug Abuse Patient Records regulations: The Federal rules restrict any use of the information to criminally investigate or prosecute any alcohol or drug abuse patient.[facility] HospitalIn the event this information is protected by the Federal Confidentiality of Alcohol and Drug Abuse Patient Records regulations: The Federal rules restrict any use of the information to criminally investigate or prosecute any alcohol or drug abuse patient.[facility] HospitalIn the event this information is protected by the Federal Confidentiality of Alcohol and Drug Abuse Patient Records regulations: The Federal rules restrict any use of the information to criminally investigate or prosecute any alcohol or drug abuse patient.[facility] HospitalIn the event this information is protected by the Federal Confidentiality of Alcohol and Drug Abuse Patient Records regulations: The Federal rules restrict any use of the information to criminally investigate or prosecute any alcohol or drug abuse patient.[facility] HospitalIn the event this information is protected by the Federal Confidentiality of Alcohol and Drug Abuse Patient Records regulations: The Federal rules restrict any use of the information to criminally investigate or prosecute any alcohol or drug abuse patient.[facility] HospitalIn the event this information is protected by the Federal Confidentiality of Alcohol and Drug Abuse Patient Records regulations: The Federal rules restrict any use of the information to criminally investigate or prosecute any alcohol or drug abuse patient.[facility] HospitalIn the event this information is protected by the Federal Confidentiality of Alcohol and Drug Abuse Patient Records regulations: The Federal rules restrict any use of the information to criminally investigate or prosecute any alcohol or drug abuse patient.[facility] HospitalIn the event this information is protected by the Federal Confidentiality of Alcohol and Drug Abuse Patient Records regulations: The Federal rules restrict any use of the information to criminally investigate or prosecute any alcohol or drug abuse patient.[facility] HospitalIn the event this information is protected by the Federal Confidentiality of Alcohol and Drug Abuse Patient Records regulations: The Federal rules restrict any use of the information to criminally investigate or prosecute any alcohol or drug abuse patient.[facility] HospitalIn the event this information is protected by the Federal Confidentiality of Alcohol and Drug Abuse Patient Records regulations: The Federal rules restrict any use of the information to criminally investigate or prosecute any alcohol or drug abuse patient.[facility] HospitalIn the event this information is protected by the Federal Confidentiality of Alcohol and Drug Abuse Patient Records regulations: The Federal rules restrict any use of the information to criminally investigate or prosecute any alcohol or drug abuse patient.[facility] HospitalIn the event this information is protected by the Federal Confidentiality of Alcohol and Drug Abuse Patient Records regulations: The Federal rules restrict any use of the information to criminally investigate or prosecute any alcohol or drug abuse patient.[facility] HospitalIn the event this information is protected by the Federal Confidentiality of Alcohol and Drug Abuse Patient Records regulations: The Federal rules restrict any use of the information to criminally investigate or prosecute any alcohol or drug abuse patient.[facility] HospitalIn the event this information is protected by the Federal Confidentiality of Alcohol and Drug Abuse Patient Records regulations: The Federal rules restrict any use of the information to criminally investigate or prosecute any alcohol or drug abuse patient.[facility] HospitalIn the event this information is protected by the Federal Confidentiality of Alcohol and Drug Abuse Patient Records regulations: The Federal rules restrict any use of the information to criminally investigate or prosecute any alcohol or drug abuse patient.[facility] HospitalIn the event this information is protected by the Federal Confidentiality of Alcohol and Drug Abuse Patient Records regulations: The Federal rules restrict any use of the information to criminally investigate or prosecute any alcohol or drug abuse patient.[facility] HospitalIn the event this information is protected by the Federal Confidentiality of Alcohol and Drug Abuse Patient Records regulations: The Federal rules restrict any use of the information to criminally investigate or prosecute any alcohol or drug abuse patient.[facility] HospitalIn the event this information is protected by the Federal Confidentiality of Alcohol and Drug Abuse Patient Records regulations: The Federal rules restrict any use of the information to criminally investigate or prosecute any alcohol or drug abuse patient.[facility] HospitalIn the event this information is protected by the Federal Confidentiality of Alcohol and Drug Abuse Patient Records regulations: The Federal rules restrict any use of the information to criminally investigate or prosecute any alcohol or drug abuse patient.[facility] HospitalIn the event this information is protected by the Federal Confidentiality of Alcohol and Drug Abuse Patient Records regulations: The Federal rules restrict any use of the information to criminally investigate or prosecute any alcohol or drug abuse patient.[facility] HospitalIn the event this information is protected by the Federal Confidentiality of Alcohol and Drug Abuse Patient Records regulations: The Federal rules restrict any use of the information to criminally investigate or prosecute any alcohol or drug abuse patient.[facility] HospitalIn the event this information is protected by the Federal Confidentiality of Alcohol and Drug Abuse Patient Records regulations: The Federal rules restrict any use of the information to criminally investigate or prosecute any alcohol or drug abuse patient.[facility] HospitalIn the event this information is protected by the Federal Confidentiality of Alcohol and Drug Abuse Patient Records regulations: The Federal rules restrict any use of the information to criminally investigate or prosecute any alcohol or drug abuse patient.[facility] HospitalIn the event this information is protected by the Federal Confidentiality of Alcohol and Drug Abuse Patient Records regulations: The Federal rules restrict any use of the information to criminally investigate or prosecute any alcohol or drug abuse patient.[facility] HospitalIn the event this information is protected by the Federal Confidentiality of Alcohol and Drug Abuse Patient Records regulations: The Federal rules restrict any use of the information to criminally investigate or prosecute any alcohol or drug abuse patient.[facility] HospitalIn the event this information is protected by the Federal Confidentiality of Alcohol and Drug Abuse Patient Records regulations: The Federal rules restrict any use of the information to criminally investigate or prosecute any alcohol or drug abuse patient.[facility] HospitalIn the event this information is protected by the Federal Confidentiality of Alcohol and Drug Abuse Patient Records regulations: The Federal rules restrict any use of the information to criminally investigate or prosecute any alcohol or drug abuse patient.[facility] HospitalIn the event this information is protected by the Federal Confidentiality of Alcohol and Drug Abuse Patient Records regulations: The Federal rules restrict any use of the information to criminally investigate or prosecute any alcohol or drug abuse patient.[facility] HospitalIn the event this information is protected by the Federal Confidentiality of Alcohol and Drug Abuse Patient Records regulations: The Federal rules restrict any use of the information to criminally investigate or prosecute any alcohol or drug abuse patient.[facility] HospitalIn the event this information is protected by the Federal Confidentiality of Alcohol and Drug Abuse Patient Records regulations: The Federal rules restrict any use of the information to criminally investigate or prosecute any alcohol or drug abuse patient.[facility] HospitalIn the event this information is protected by the Federal Confidentiality of Alcohol and Drug Abuse Patient Records regulations: The Federal rules restrict any use of the information to criminally investigate or prosecute any alcohol or drug abuse patient.[facility] HospitalIn the event this information is protected by the Federal Confidentiality of Alcohol and Drug Abuse Patient Records regulations: The Federal rules restrict any use of the information to criminally investigate or prosecute any alcohol or drug abuse patient.[facility] HospitalIn the event this information is protected by the Federal Confidentiality of Alcohol and Drug Abuse Patient Records regulations: The Federal rules restrict any use of the information to criminally investigate or prosecute any alcohol or drug abuse patient.[facility] HospitalIn the event this information is protected by the Federal Confidentiality of Alcohol and Drug Abuse Patient Records regulations: The Federal rules restrict any use of the information to criminally investigate or prosecute any alcohol or drug abuse patient.[facility] HospitalIn the event this information is protected by the Federal Confidentiality of Alcohol and Drug Abuse Patient Records regulations: The Federal rules restrict any use of the information to criminally investigate or prosecute any alcohol or drug abuse patient.[facility] HospitalIn the event this information is protected by the Federal Confidentiality of Alcohol and Drug Abuse Patient Records regulations: The Federal rules restrict any use of the information to criminally investigate or prosecute any alcohol or drug abuse patient.[facility] HospitalIn the event this information is protected by the Federal Confidentiality of Alcohol and Drug Abuse Patient Records regulations: The Federal rules restrict any use of the information to criminally investigate or prosecute any alcohol or drug abuse patient.[facility] HospitalIn the event this information is protected by the Federal Confidentiality of Alcohol and Drug Abuse Patient Records regulations: The Federal rules restrict any use of the information to criminally investigate or prosecute any alcohol or drug abuse patient.[facility] HospitalIn the event this information is protected by the Federal Confidentiality of Alcohol and Drug Abuse Patient Records regulations: The Federal rules restrict any use of the information to criminally investigate or prosecute any alcohol or drug abuse patient.[facility] HospitalIn the event this information is protected by the Federal Confidentiality of Alcohol and Drug Abuse Patient Records regulations: The Federal rules restrict any use of the information to criminally investigate or prosecute any alcohol or drug abuse patient.[facility] HospitalIn the event this information is protected by the Federal Confidentiality of Alcohol and Drug Abuse Patient Records regulations: The Federal rules restrict any use of the information to criminally investigate or prosecute any alcohol or drug abuse patient.[facility] HospitalIn the event this information is protected by the Federal Confidentiality of Alcohol and Drug Abuse Patient Records regulations: The Federal rules restrict any use of the information to criminally investigate or prosecute any alcohol or drug abuse patient.[facility] HospitalIn the event this information is protected by the Federal Confidentiality of Alcohol and Drug Abuse Patient Records regulations: The Federal rules restrict any use of the information to criminally investigate or prosecute any alcohol or drug abuse patient.[facility] HospitalIn the event this information is protected by the Federal Confidentiality of Alcohol and Drug Abuse Patient Records regulations: The Federal rules restrict any use of the information to criminally investigate or prosecute any alcohol or drug abuse patient.[facility] HospitalIn the event this information is protected by the Federal Confidentiality of Alcohol and Drug Abuse Patient Records regulations: The Federal rules restrict any use of the information to criminally investigate or prosecute any alcohol or drug abuse patient.[facility] HospitalIn the event this information is protected by the Federal Confidentiality of Alcohol and Drug Abuse Patient Records regulations: The Federal rules restrict any use of the information to criminally investigate or prosecute any alcohol or drug abuse patient.[facility] HospitalIn the event this information is protected by the Federal Confidentiality of Alcohol and Drug Abuse Patient Records regulations: The Federal rules restrict any use of the information to criminally investigate or prosecute any alcohol or drug abuse patient.[facility] HospitalIn the event this information is protected by the Federal Confidentiality of Alcohol and Drug Abuse Patient Records regulations: The Federal rules restrict any use of the information to criminally investigate or prosecute any alcohol or drug abuse patient.[facility] HospitalIn the event this information is protected by the Federal Confidentiality of Alcohol and Drug Abuse Patient Records regulations: The Federal rules restrict any use of the information to criminally investigate or prosecute any alcohol or drug abuse patient.[facility] HospitalIn the event this information is protected by the Federal Confidentiality of Alcohol and Drug Abuse Patient Records regulations: The Federal rules restrict any use of the information to criminally investigate or prosecute any alcohol or drug abuse patient.[facility] HospitalIn the event this information is protected by the Federal Confidentiality of Alcohol and Drug Abuse Patient Records regulations: The Federal rules restrict any use of the information to criminally investigate or prosecute any alcohol or drug abuse patient.[facility] HospitalIn the event this information is protected by the Federal Confidentiality of Alcohol and Drug Abuse Patient Records regulations: The Federal rules restrict any use of the information to criminally investigate or prosecute any alcohol or drug abuse patient.[facility] HospitalIn the event this information is protected by the Federal Confidentiality of Alcohol and Drug Abuse Patient Records regulations: The Federal rules restrict any use of the information to criminally investigate or prosecute any alcohol or drug abuse patient.[facility] HospitalIn the event this information is protected by the Federal Confidentiality of Alcohol and Drug Abuse Patient Records regulations: The Federal rules restrict any use of the information to criminally investigate or prosecute any alcohol or drug abuse patient.[facility] HospitalIn the event this information is protected by the Federal Confidentiality of Alcohol and Drug Abuse Patient Records regulations: The Federal rules restrict any use of the information to criminally investigate or prosecute any alcohol or drug abuse patient.[facility] HospitalIn the event this information is protected by the Federal Confidentiality of Alcohol and Drug Abuse Patient Records regulations: The Federal rules restrict any use of the information to criminally investigate or prosecute any alcohol or drug abuse patient.[facility] Reason for Visit (unrecogniz ed section [...] NEW HIGH MDM 60-74 MINUTES Comfort Patterson, GM.CUSTOMER INSIGHT ANALYST [address] [place] [address] Referral ID Status Reason Start Date Expiration Date Visits Requested Visits Authorized [id number] Pending Review PCP Requested Referral 10/28/2021 10/07/2022 [...] BRNCDILAT RSPSE SPMTRY PRE&POST-BRNCDILAT ADMGuillaume Lopes MD [address] [place] [address] [facility] [address] [place] [address] Referral ID Status Reason Start Date Expiration Date V isits Requested Visits Authorized [id number] Closed Auto-Generate d Referral 04/27/2022 05/27/2023 1 1 Specialty Diagnoses / Procedures Referred By Contac t Referred To Contact [facility] Diagnoses FIELD (dyspnea on exertion) Chronic cough Procedures LUNG VOLUMES Guillaume Dominguez MD [address] [place] [address] [facility] [address] [place] [id number] Referral ID Status Reason Start Date Expiration Date V isits Requested Visits Authorized [id number] Closed Auto-Generate d Referral 04/28/2022 05/30/2022 1 [...] EVALUATION HIGH COMPLEX 45 MINS Oralia Garcia, SOLE TIER.[employer]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 Juanita Wharton PT, DPT [address] [facility] [place] [phone] [facility] [place] [id number] Reason Onset Date Comments Refill Request 09/23/2022 Reason Onset Date Comments Refill Request 09/25/2022 Reason Comments Anticoagulation Referral ID Status Reason Start Date Expiration Date V isits Requested Visits Authorized [id number] Closed PCP Requested Referral Auto-Generated Referral 08/19/2022 [...] EST RS PT ORTH Veda Rocha [address]; [facility] [address] [place] [address] Nhi Iverson, PT Referral ID Status Reason Start Date Expiration Date V isits Requested Visits Authorized [id number] Authorized 10/12/2022 01/28/2023 10 10 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 Comments Follow Up Non-insulin [...] atrial complexes Procedures CONSULT TO CARDIOLOGY OFFICE/OUTPATIENT [facility] 60-74 MINUTES Guillaume Dominguez MD [address] [place] [address] Maykel Whitfield DO [address] [address] Referral ID Status Reason Start Date Expiration Date Visits Requested Visits Authorized [id number] Pending Review PCP Requested Referral 08/15/2022 08/15/2023 1 1 Reason Comments Forms Reason Comments Reminder Call Reason Onset Date Comments Recheck Immunizations 02/02/2023 Flu vaccination Reason Onset Date Comments Refill Request 02/19/2023 Reason Comments Refill Request Reason Comments Non-insulin Dependent Diabetes Mellitus Reason Onset Date Comments Established Patient Memory issue s. Breast Problem 05/14/2023 Mammogram at [facility] Special[facility] Reason Comments Follow Up Room 12"We don't kno w why we are here."ECHO, ECG, Stress results Reason Comments Abnormal mammogram letter Reason Comments Mammogram Result Call Back Reason Comments Brain Wellness Specialty Diagnoses / Procedures Referred By Contac t Referred To Contact Diagnoses Memory difficulties Procedures CONSULT TO B[facility]IN HEALTH & WELL[facility] OFFICE/OUTPATIENT [facility] 60 MINUTES Comfort Patterson APRN.CNS [address] [place] [address] Referral ID Status Reason Start Date Expiration Date V isits Requested Visits Authorized [id number] Closed PCP Requested Referral 06/15/2023 06/14/2024 1 [...] requesting allergy list to be faxed to [facility] Reason Comments Cardiac Clearance Anticoagulation Reason Comments Follow Up Back Pain Reason Comments Faxed to [facility] Reason Comments F/U 6 months Reason Comments [facility] Reason Comments Established Patient Reason Comments Medication Dosage Adjustment Reason Onset Date Comments Population Health Navigation Outreach 08/17/2024 Playrolloster Reason Onset Date Comments Population Health Navigation Outreach 09/18/2024 [facility] [place] Care Teams (unrecognized sec tion and content) Delivery Professional Relationship Specialty Start Date End Date Guillaume Dominguez MD [address] [place] [address] PCP - General 07/30/04 Delivery Professional Relationship Specialty Start Date End Date Guillaume Dominguez MD [facility] [place] [address] PCP - General 07/30/04 Delivery Professional Relationship Specialty Start Date End Date Guillaume Dominguez MD [address] [place] [address] PCP - General 07/30/04 Delivery Professional Relationship Specialty Start Date End Date Guillaume Dominguez MD [address] [place] [address] [place] [address] PCP - General 07/30/04 Delivery Professional Relationship Specialty Start Date End Date Guillaume Dominguez MD [address] [place] [address] PCP - General 07/30/04 Delivery Professional Relationship Specialty Start Date End Date Guillaume Dominguez MD [address] [facility] [address] PCP - General 07/30/04 Delivery Professional Relationship Specialty Start Date End Date Guillaume Dominguez MD [address] [facility] [address] PCP - General 07/30/04 Delivery Professional Relationship Specialty Start Date End Date Guillaume Dominguez MD [facility] [address] PCP - General 07/30/04 Delivery Professional Relationship Specialty Start Date End Date Guillaume Dominguez MD [address] [place] [address], [place] [address] PCP - General 07/30/04 Delivery Professional Relationship Specialty Start Date End Date Guillaume Dominguez MD [address] [place] [address], [place] [address] PCP - General 07/30/04 Delivery Professional Relationship Specialty Start Date End Date Guillaume Dominguez MD [facility] [address] PCP - General 07/30/04 Delivery Professional Relationship Specialty Start Date End Date Guillaume Dominguez MD [address] [place] [address], [place] [address] PCP - General 07/30/04 Delivery Professional Relationship Specialty Start Date End Date Guillaume Dominguez MD [address] [place] [address], [place] [address] PCP - General 07/30/04 Delivery Professional Relationship Specialty Start Date End Date Guillaume Dominguez MD [address] [place] [address], [place] [address] PCP - General 07/30/04 Delivery Professional Relationship Specialty Start Date End Date Guillaume Dominguez MD [address] [facility] [address] PCP - General 07/30/04 Delivery Professional Relationship Specialty Start Date End Date Guillaume Dominguez MD [address] [facility] [address] PCP - General 07/30/04 Delivery Professional Relationship Specialty Start Date End Date Guillaume Dominguez MD [address] [place] [address], [place] [address] PCP - General 07/30/04 Delivery Professional Relationship Specialty Start Date End Date Guillaume Dominguez MD [address] [place] [address], [place] [address] PCP - General 07/30/04 Delivery Professional Relationship Specialty Start Date End Date Guillaume Dominguez MD [address] [place] [address], [place] [address] PCP - General 07/30/04 Delivery Professional Relationship Specialty Start Date End Date Guillaume Dominguez MD [address] [place] [address], [place] [address] PCP - General 07/30/04 Delivery Professional Relationship Specialty Start Date End Date Guillaume Dominguez MD [address] [place] [address], [place] [address] PCP - General 07/30/04 Delivery Professional Relationship Specialty Start Date End Date Guillaume Dominguez MD [address] [place] [address], [place] [address] PCP - General 07/30/04 Delivery Professional Relationship Specialty Start Date End Date Guillaume Dominguez MD [address] [place] [address], [place] [address] PCP - General 07/30/04 Delivery Professional Relationship Specialty Start Date End Date Guillaume Dominguez MD [address] [facility] [address] PCP - General 07/30/04 Delivery Professional Relationship Specialty Start Date End Date Guillaume Dominguez MD [address] [facility] [address] PCP - General 07/30/04 Delivery Professional Relationship Specialty Start Date End Date Guillaume Dominguez MD [address] [place] [address], [place] [address] PCP - General 07/30/04 Delivery Professional Relationship Specialty Start Date End Date Guillaume Dominguez MD [address] [place] [address], [place] [address] PCP - General 07/30/04 Delivery Professional Relationship Specialty Start Date End Date Guillaume Dominguez MD [address] [place] [address], [place] [address] PCP - General 07/30/04 Delivery Professional Relationship Specialty Start Date End Date Guillaume Dominguez MD [facility] [address] PCP - General 07/30/04 Delivery Professional Relationship Specialty Start Date End Date Guillaume Dominguez MD [address] [place] [address], [place] [address] PCP - General 07/30/04 Delivery Professional Relationship Specialty Start Date End Date Guillaume Dominguez MD [facility] [address] PCP - General 07/30/04 Delivery Professional Relationship Specialty Start Date End Date Guillaume Dominguez MD [address] [place] [address], [place] [address] PCP - General 07/30/04 Delivery Professional Relationship Specialty Start Date End Date Guillaume Dominguez MD [address] [facility] [address] PCP - General 07/30/04 Delivery Professional Relationship Specialty Start Date End Date Guillaume Dominguez MD [address] [facility] [address] PCP - General 07/30/04 Delivery Professional Relationship Specialty Start Date End Date Guillaume Dominguez MD [address] [facility] [address] PCP - General 07/30/04 Delivery Professional Relationship Specialty Start Date End Date Guillaume Dominguez MD [address] [facility] [address] PCP - General 07/30/04 Delivery Professional Relationship Specialty Start Date End Date Guillaume Dominguez MD [address] [facility] [address] PCP - General 07/30/04 Delivery Professional Relationship Specialty Start Date End Date Guillaume Dominguez MD [address] [facility] [address] PCP - General 07/30/04 Delivery Professional Relationship Specialty Start Date End Date Guillaume Dominguez MD [address] [place] [address] PCP - General 07/30/04 Delivery Professional Relationship Specialty Start Date End Date Guillaume Dominguez MD [address] [facility] [address] PCP - General 07/30/04 Delivery Professional Relationship Specialty Start Date End Date Guillaume Dominguez MD [address] [place] [address] PCP - General 07/30/04 Delivery Professional Relationship Specialty Start Date End Date Guillaume Dominguez MD [address] [facility] [address] PCP - General 07/30/04 Delivery Professional Relationship Specialty Start Date End Date Guillaume Dominguez MD [address] [place] [address] PCP - General 07/30/04 Delivery Professional Relationship Specialty Start Date End Date Guillaume Dominguez MD [address] [place] [address] PCP - General 07/30/04 Team Status: Active Member Role Status Dates Dr. Guillaume Dominguez MD Family Provider Active Dr. Guillaume Dominguez MD Primary Care Provider Active Team Status: Inactive Member Role Status Dates Dr. Guillaume Dominguez MD Primary Care Provider Active Dr. Natalya Medina MD Emergency Provider Active Delivery Professional Relationship Specialty Start Date End Date Guillaume Dominguez MD [address] [place] [address] PCP - General 07/30/04 Delivery Professional Relationship Specialty Start Date End Date Guillaume Dominguez MD [address] [place] [address] PCP - General 07/30/04 Delivery Professional Relationship Specialty Start Date End Date Guillaume Dominguez MD [address] [place] [address] PCP - General 07/30/04 Team Status: Inactive Member Role Status Dates Dr. Guillaume oDminguez MD Primary Care Provider Active Dr. Natalya Medina MD Attending Provider, Emergency Provider Active Team Status: Inactive Member Role Status Dates Dr. Guillaume Dominguez MD Primary Care Provider Active Dr. Kerwin Kumar DO Emergency Provider Active Delivery Professional Relationship Specialty Start Date End Date Guillaume Dominguez MD [address] [place] [address] PCP - General 07/30/04 Delivery Professional Relationship Specialty Start Date End Date Guillaume Dominguez MD [address] [place] [address] PCP - General 07/30/04 Delivery Professional Relationship Specialty Start Date End Date Guillaume Dominguez MD [address] [place] [address] PCP - General 07/30/04 Delivery Professional Relationship Specialty Start Date End Date Guillaume Dominguez MD [address] [place] [address] PCP - General 07/30/04 Delivery Professional Relationship Specialty Start Date End Date Guillaume Dominguez MD [address] [place] [address] PCP - General 07/30/04 Delivery Professional Relationship Specialty Start Date End Date Guillaume Dominguez MD [address] [place] [address] PCP - General 07/30/04 Delivery Professional Relationship Specialty Start Date End Date Guillaume Dominguez MD [address] [place] [address] PCP - General 07/30/04 Delivery Professional Relationship Specialty Start Date End Date Guillaume Dominguez MD [address] [place] [address] PCP - General 07/30/04 Delivery Professional Relationship Specialty Start Date End Date Guillaume Dominguez MD [address] [place] [address] PCP - General 07/30/04 Delivery Professional Relationship Specialty Start Date End Date Guillaume Dominguez MD [address] [place] [address] PCP - General 07/30/04 Delivery Professional Relationship Specialty Start Date End Date Guillaume Dominguez MD [address] [place] [address] PCP - General 07/30/04 Delivery Professional Relationship Specialty Start Date End Date Guillaume Dominguez MD [address] [place] [address] PCP - General 07/30/04 Delivery Professional Relationship Specialty Start Date End Date Guillaume Dominguez MD [address] [place] [address] PCP - General 07/30/04 Delivery Professional Relationship Specialty Start Date End Date Guillaume Dominguez MD [address] [place] [address] PCP - General 07/30/04 Delivery Professional Relationship Specialty Start Date End Date Guillaume Dominguez MD [address] [place] [address] PCP - General 07/30/04 Delivery Professional Relationship Specialty Start Date End Date Guillaume Dominguez MD [address] [place] [address] PCP - General 07/30/04 Delivery Professional Relationship Specialty Start Date End Date Guillaume Dominguez MD [address] [place] [address] PCP - General 07/30/04 Delivery Professional Relationship Specialty Start Date End Date Guillaume Dominguez MD [address] [place] [address] PCP - General 07/30/04 Delivery Professional Relationship Specialty Start Date End Date Guillaume Dominguez MD [address] [place] [address] PCP - General 07/30/04 Delivery Professional Relationship Specialty Start Date End Date Guillaume Dominguez MD [address] [place] [address] PCP - General 07/30/04 Delivery Professional Relationship Specialty Start Date End Date Guillaume Dominguez MD [address] [place] [address] PCP - General 07/30/04 Delivery Professional Relationship Specialty Start Date End Date Guillaume Dominguez MD [address] [place] [address] PCP - General 07/30/04 Delivery Professional Relationship Specialty Start Date End Date Guillaume Dominguez MD [address] [facility] [address] PCP - General 07/30/04 Delivery Professional Relationship Specialty Start Date End Date Guillaume Dominguez MD [address] [facility] [address] PCP - General 07/30/04 Delivery Professional Relationship Specialty Start Date End Date Guillaume Dominguez MD [address] [facility] [address] PCP - General 07/30/04 Delivery Professional Relationship Specialty Start Date End Date Guillaume Dominguez MD [address] [facility] [address] PCP - General 07/30/04 Comfort Patterson, SOLE TIER.CUSTOMER INSIGHT ANALYST [address] [facility] [address] Commercial Art Instructor Internal Medicine 05/08/24 Josefa Caputo SOLE TIER.WOOD BOAT BUILDER SUPERVISOR [address] [place] [address] Commercial Art Instructor Internal Medicine 05/08/24 Delivery Professional Relationship Specialty Start Date End Date Guillaume Dominguez MD [address] [facility] [address] PCP - General 07/30/04 Comfort Patterson APRN.CUSTOMER INSIGHT ANALYST [address] [place] [address] Commercial Art Instructor Internal Medicine 05/08/24 Josefa Caputo APRN.WOOD BOAT BUILDER SUPERVISOR [address] [place] [address] Commercial Art Instructor Internal Medicine 05/08/24 Delivery Professional Relationship Specialty Start Date End Date Guillaume Dominguez MD [address] [place] [address] PCP - General 07/30/04 Comfort Patterson, SOLE TIER.CUSTOMER INSIGHT ANALYST [address] [place] [address] Commercial Art Instructor Internal Medicine 05/08/24 Josefa Caputo SOLE TIER.WOOD BOAT BUILDER SUPERVISOR [address] [place] [address] Commercial Art Instructor Internal Medicine 05/08/24 Delivery Professional Relationship Specialty Start Date End Date Guillaume Dominguez MD [address] [place] [address] PCP - General 07/30/04 Delivery Professional Relationship Specialty Start Date End Date Guillaume Dominguez MD [address] [place] [address] PCP - General 07/30/04 Comfort Patterson, SOLE TIER.CUSTOMER INSIGHT ANALYST [address] [place] [address] Commercial Art Instructor Internal Medicine 05/08/24 Josefa Caputo SOLE TIER.WOOD BOAT BUILDER SUPERVISOR [address] [place] [address] Commercial Art Instructor Internal Medicine 05/08/24 Delivery Professional Relationship Specialty Start Date End Date Guillaume Dominguez MD [address] [place] [address] PCP - General 07/30/04 Comfort Patterson, SOLE TIER.CUSTOMER INSIGHT ANALYST [address] [place] [address] Commercial Art Instructor Internal Medicine 05/08/24 Josefa Caputo SOLE TIER.WOOD BOAT BUILDER SUPERVISOR [address] [place] [address] Commercial Art Instructor Internal Medicine 05/08/24 Delivery Professional Relationship Specialty Start Date End Date Guillaume Dominguez MD [address] [place] [address] PCP - General 07/30/04 Comfort Patterson, SOLE TIER.CUSTOMER INSIGHT ANALYST [address] [place] [address] Commercial Art Instructor Internal Medicine 05/08/24 Josefa Caputo SOLE TIER.WOOD BOAT BUILDER SUPERVISOR [address] [place] [address] [facility] Internal Medicine 05/08/24 Delivery Professional Relationship Specialty Start Date End Date Guillaume Dominguez [address] [place] [address] PCP - General Internal Medicine 08/02/24 Delivery Professional Relationship Specialty Start Date End Date Guillaume Dominguez MD [address] [place] [address] PCP - General 07/30/04 Comfort Patterson, SOLE TIER.CUSTOMER INSIGHT ANALYST [address] [place] [address] [facility] Internal Medicine 05/08/24 Josefa Caputo SOLE TIER.WOOD BOAT BUILDER SUPERVISOR [address] [facility] [address] Commercial Art Instructor Internal Medicine 05/08/24 Delivery Professional Relationship Specialty Start Date End Date Guillaume Dominguez MD [address] [facility] [address] PCP - General 07/30/04 Comfort Patterson, SOLE TIER.CUSTOMER INSIGHT ANALYST [address] [place] [address] Commercial Art Instructor Internal Medicine 05/08/24 Josefa Caputo SOLE TIER.WOOD BOAT BUILDER SUPERVISOR [address] [facility] [address] [facility] Internal Medicine 05/08/24 Delivery Professional Relationship Specialty Start Date End Date Guillaume Dominguez MD [address] [facility] [address] PCP - General 07/30/04 Comfort Patterson, SOLE TIER.CUSTOMER INSIGHT ANALYST [address] [facility] [address] [facility] Internal Medicine 05/08/24 Josefa Caputo SOLE TIER.WOOD BOAT BUILDER SUPERVISOR [address] [facility] [address] [facility] Internal Medicine 05/08/24 Team Status: Inactive [...] August 11, 2024 End: August 11, 2024 Delivery Professional Relationship Specialty Start Date End Date Guillaume Dominguez MD [address] [place], [place] [address] PCP - General 07/30/04 Comfort Patterson APRN.CUSTOMER INSIGHT ANALYST [address] [place], [place] [address] [facility] Internal Medicine 05/08/24 Josefa Caputo APRN.WOOD BOAT BUILDER SUPERVISOR [address] [place], [place] [address] [facility] Internal Medicine 08/22/24 Team Status: Active Member [...] Provider Active S tart: September 26, 2024 Delivery Professional Relationship Specialty Start Date End Date Guillaume Dominguez [address] [place] [address] PCP - General Internal Medicine 08/02/24 Team [...] Provider Active S tart: October 31, 2024 Delivery Professional Relationship Specialty Start Date End Date Guillaume Dominguez MD [address] [place] [address] PCP - General 07/30/04 Josefa Caputo SOLE TIER.WOOD BOAT BUILDER SUPERVISOR [address] [place], [place] [address] Commercial Art Instructor Internal Medicine 08/22/24 Comfort Patterson, SOLE TIER.CUSTOMER INSIGHT ANALYST [address] [place], [place] [id number] Commercial Art Instructor Internal Medicine 10/18/24 Goals (unrecognized section and [...] BE BASED ON THE PRIMARY CLINICAL RECORDS. [employer] [facility]. provides no warranty or guarantee of the accuracy or completeness of information in this document.
== END ==
LOC: OLS.ACH 05:00
PROVIDERS: PCP Internal Medicine; Visit Provider Internal Medicine
DX: E11.65 Type 2 diabetes mellitus with hyperglycemia (principal)
CPT/HCPCS: 36415; 83036

== ENCOUNTER → 2025-05-14 05:00 | Outpatient (REF) | payer MEDICARE, SELFPAY ==
--- OUTSIDE RECORDS SUMMARY | 2025-05-14 04:08 | XMS RPT_ITS | CCD ---
Author Organization [facility] CliniSyut Care Team Providers Care Width Stripper Name Role Phone ALLISON LEHMAN Unavailable Unavailable TALAMPAS, GUILLAUME Unavailable Unavailable TALAMPAS, GUILLAUME Unavailable Unavailable MORAIMA MONTELONGO Referring Unavailable Guillaume Dominguez MD Primary Care Provider Guillaume Dominguez MD Primary Care Provider Guillaume Dominguez MD Primary Care Provider Guillaume Dominguez MD Primary Care Provider MORAIMA MONTELONGO Attending Unavailable MORAIMA MONTELONGO Admitting Unavailable TALAMPJULIANNE, GUILLAUME Melody Primary Care Unavailable Patterson SWITCH OPERATORS SUPERVISOR.SURFACE BOSS, Comfort Unavailable Flynn SWITCH OPERATORS SUPERVISOR.TRAINING AND DEVELOPMENT REP, Josefa Unavailable Flynn SWITCH OPERATORS SUPERVISOR.TRAINING AND DEVELOPMENT REP, Josefa Unavailable Analia Guillaume Melody Primary Care Provider NWROSALINO, ENYINNA Attending Unavailable NWACHUKU, ENYINNA Referring Unavailable TALAMPAS, GUILLAUME, Primary Care Unavailable TALAMPAS, GUILLAUME D Primary Care Unavailable NWACH[place]U, ENYINNA Attending Unavailable NIVIA VERMA Referring Unavailable TALAMPJULIANNE, GUILLAUME D Primary Care Unavailable Dr. Guillaume Dominguez MD Primary Care Provider Arden Leger MD Attending Provider [phone] Arden Leger MD Emergency Provider [phone] Jose De Jesus SCHMIDT, Deep Attending Provider Unavailable Jose De Jesus SCHMIDT, Deep Referring Provider Unavailable Flynn SWITCH OPERATORS SUPERVISOR.HIMA Josefa Unavailable Dr. Guillaume Dominguez MD Primary Care Provider [phone] Jose De Jesus SCHMIDT, Deep Attending Provider Unavailable Dr. Guillaume Dominguez MD Primary Care Provider Jose De Jesus SCHMIDT, Deep Attending Provider Unavailable Patterson GM.NANNETTE, Comfort Unavailable ADINA LAY Attending Unavailable TALAMPAS, GUILLAUEM D Primary Care Unavailable TALAMPAS, GUILLAUME D [...] (2 sources) irbesartan Drug Allergy 5 Swelling [facility] Aspirin (2 sources) Aspirin Drug Allergy 2 Anaphylaxis [facility] Cephalosporins (antibiotic) (2 sources) Cephalexin Drug Allergy 2 Rash, Diarrhea [facility] Work Phone: Cholesterol Absorption Inhibitors (2 sources) ezetimibe Drug Allergy 5 [facility] egg extract (2 sources) egg extract Drug Allergy 7 Diarrhea [facility] exenatide (2 sources) exenatide Drug Allergy 7 [facility] HMG-CoA Reductase Inhibitors (statins) (8 sources) rosuvastatin Drug Allergy 5 [facility] Macrolides (antibiotic) (2 sources) Erythromycin Drug Allergy 8 Myalgia [facility] metFORMIN (2 sources) metFORMIN Drug Allergy 8 GI Upset [facility] Niacin (4 sources) Niacin Drug Allergy 5 Unknown [facility] NSAIDs (2 sources) Etodolac Drug Allergy 1 Contraindicati on-Medical Surgical [facility] Work Phone: Opioid Agonists (2 sources) HYDROcodone Drug Allergy 3 Itching [facility] Penicillins (antibiotic) (2 sources) Penicillins Drug Allergy 5 Rash [facility] Sulfonamides (antibiotic) (2 sources) Sulfonamides (Antibiotic) Drug Allergy 5 Rash [facility] (20 sources) atorvastatin; Translations: [ATORVASTATIN] Drug Allergy 5 Unknown [facility] Repository (20 sources) egg extract; Translations: [EGG] Drug Allergy 7 Diarrhea [facility] Repository (20 sources) erythromycin; Translations: [ERYTHROMYCIN] Drug Allergy 8 Myalgia [facility] Repository (20 sources) etodolac; Translations: [ETODOLAC] Drug Allergy 1 Contraindicati on-Medical Surgical [facility] Repository (20 sources) exenatide; Translations: [EXENATIDE] Drug Allergy 7 Unknown [facility] Repository (20 sources) ezetimibe; Translations: [EZETIMIBE] Drug Allergy 5 Rash [facility] Repository (20 sources) irbesartan; Translations: [IRBESARTAN] Drug Allergy 5 Swelling [facility] Repository (20 sources) niacin; Translations: [NIACIN (ANTIHYPERLIPIDE VERN)] Drug Allergy 5 [facility] Repository (20 sources) NSAIDs; Translations: [NSAIDS (NON-STEROIDAL ANTI-INFLAMMATOR Y DRUG)] Propensity to adverse reactions (disorder) 1 Other: See Comments, Intolerance [facility] Repository (20 sources) Penicillins; Translations: [PENICILLINS] Propensity to adverse reactions (disorder) 5 [facility] [place] Repository (20 sources) pravastatin; Translations: [PRAVASTATIN SODIUM] Drug Allergy 5 [facility] Repository (20 sources) rosuvastatin; Translations: [ROSUVASTATIN CALCIUM] Drug Allergy 5 [facility] Repository (20 sources) salicylic acid; Translations: [SALICYLATES] Drug Allergy 5 Anaphylaxis [facility] Repository (20 sources) simvastatin; Translations: [SIMVASTATIN] Drug Allergy 5 Rash [facility] Repository (20 sources) Sulfonamides (Antibiotic); Translations: [SULFA (SULFONAMIDE ANTIBIOTICS)] Propensity to adverse reactions (disorder) 5 [facility] [place] Repository (3 sources) OTHER; Translations: [OTHER] Propensity to adverse reactions (disorder) 9 [facility] Repository (20 sources) metFORMIN; Translations: [METFORMIN] Drug Allergy 8 GI Upset [facility] Other [place] Repository (20 sources) Niacin; Translations: [NIACIN] Drug Allergy 5 Unknown [facility] Repository (20 sources) duoderm [Other] Propensity to adverse reactions 9 Rash [facility] Work Phone: (20 sources) ointments [Other] Propensity to adverse reactions 9 [facility] (20 sources) tape [Other] Propensity to adverse reactions 8 [facility] (20 sources) Adhesive agent; Translations: [ADHESIVE] Allergy to substance 2 Itching [facility] (20 sources) Aspirin; Translations: [ASPIRIN] Drug Allergy 2 Anaphylaxis [facility] (3 sources) Egg Propensity to adverse reactions 2 Diarrhea [facility] Work Phone: [phone] (10 sources) Erythromycin Drug Allergy 2 Other [facility] (10 sources) Nonsteroidal Anti-inflammator y Compounds Propensity to adverse reactions 2 Other [facility] (10 sources) Pravastatin Drug Allergy 2 Rash [facility] (10 sources) rosuvastatin Drug Allergy 2 Unknown [facility] (10 sources) Sxdwpob-Tjf-Gow Reductase Inhibitor Allergy to substance 2 [facility] (3 sources) duoderm Allergy to substance 2 [facility] Work Phone: [phone] (3 sources) ointments Allergy to substance 2 [facility] Work Phone: [phone] (20 sources) Cephalexin; Translations: [CEPHALEXIN] Drug Allergy 2 Rash, Diarrhea [facility] Work Phone: (20 sources) HYDROcodone; Translations: [HYDROCODONE] Drug Allergy 3 Itching [facility] Work Phone: (8 sources) Dressing: Non-Medicated; Translations: [Dressing: Non-Medicated] Allergy to substance 3 Rash [facility] Comment on above: duoderm (20 sources) Adhesive Tape-Silicones; Translations: [ADHESIVE TAPE-SILICONES] Drug Intolerance 4 Itching [facility] Work Phone: (20 sources) oxyCODONE; Translations: [OXYCODONE] Drug Allergy 4 Mental Status Change, Itching [facility] Comment on above: per family (1 source) Aspirin Drug Allergy 4 [facility] Repository (1 source) Erythromycin Drug Allergy 4 [facility] Repository (1 source) HYDROcodone Drug Allergy 4 [facility] Repository (1 source) NSAIDs Drug allergy (disorder) 4 [facility] Repository (1 source) oxyCODONE Drug Allergy 4 [facility] Repository (1 source) Pravastatin Drug Allergy 4 [facility] Repository (1 source) rosuvastatin Drug Allergy 4 [facility] Repository (1 source) Fmenlit-Rjg-Ilo Reductase Inhibitor Drug allergy (disorder) 4 [facility] Repository Medications Current Medications Medication Drug [...] itching docusate sodium 50 mg / sennosides, senior care 8.6 mg oral tablet (20 sources) Start: [...] Discontinued Start: 10-27-2022 take 1 capsule by [facility] once daily DULoxetine (CYMBALTA) 20 mg capsule Indications: Anxiety disorder, unspecified type , Radiculopathy, lumbar region , Chronic SI joint pain Take 1 capsule by mouth once daily. 30 capsule 2 10/27/2022 Active Comment on above: Take 1 capsule by mo [facility] once daily. take 1 capsule by mo [facility] once daily Take 2 capsules by [facility] once daily. ferrous sulfate 325 mg oral [...] Comment on above: Take 1 tablet by [facility] once daily. fluconazole 200 mg oral tablet [...] Comment on above: TAKE 1 TABLET BY [facility] EVERY 3 TO 4 DAYS FOR 2 MONTHS Take 2 tablets by mo [facility] every 72 hours. Two (2) X 200 mg tablets = 400 mg 2-3 times a week TAKE 1 TABLET 3x per week hydrALAZINE hydrochloride 10 mg oral tablet (9 sources) Arteriolar Vasodilator Start: 02-01-20 End: 05-19-20 take 1 tablet by mouth three times daily Hydralazine 10 mg Tablet Active 10 mg PO THREE TIMES A DAY 0 February 01, 2024 12:00am lactobacillus acidophilus [id number] unt oral capsule (14 sources) lactobacillus acidophilus 100 mg (1 billion cell) cap(s) Take 1 capsule by mouth once daily. Biotinex (Simplee probiotic) Active lidocaine 0.05 mg/mg medicated patch [...] on above: Take 1 capsule by mo [facility] twice daily for 7 days. 24 hr oxybutynin chloride 10 mg extended release oral tablet (20 sources) Cholinergic Muscarinic Antagonist Start: 03-31-2019 End: 09-17-2023 take 1 tablet by mouth once daily oxybutynin ER (DITROPAN XL) 10 mg 24 hr tablet Take 1 tablet by mouth once daily. 90 tablet 1 09/17/2023 Active Start: 03-31-2019 take 1 tablet by [facility] every twenty-four hours at bedtime Oxybutynin [...] in NaCl (PF) 0.9% 10 mL injection (DailyStrengthITY) polyethylene glycol 3350 [id number] mg powder for oral solution (13 sources) [...] once every month. To be administered at [facility] by nurse 1 mL 12 11/11/2023 [...] Start: 08-27-2020 take 2 tablets by mo [facility] twice daily, then take 1 tablet by [...] on above: Take 2,500 mcg by mo [facility] once daily. Blood-Glucose Meter, Drum-type (ACCU-CHEK [...] above: USE DIRECTED. Blood-Glucose Meter,Continuous (DEXCOM G7 [place] MAKER) misc (20 sources) Start: 01-08-2023 End: 08-11-2023 Blood-Glucose Meter,Continuous (DEXCOM G7 [place] [employer]KER) misc Indications: Type 2 diabetes mellitus with peripheral neuropathy (HCC) use to check sugars 1 Each 0 01/08/2023 08/11/2023 Discontinued Start: 01-08-2023 Blood-Glucose Meter,Continuous (DEXCOM G7 [place] [employer]KER) misc Indications: Type 2 diabetes mellitus with peripheral neuropathy (HCC) use to check sugars 1 Each 0 01/08/2023 Active Start: 12-30-2022 End: 01-05-2023 Blood-Glucose Meter,Continuo us (DEXCOM G7 [employer] MAKER) misc use to check sugars 1 Each 0 12/30/2022 01/05/2023 Discontinued Start: 12-30-2022 Blood-Glucose Meter,Continuous (DEXCOM G7 [place] [employer]KER) misc use to check sugars 1 Each [...] Comment on above: take 2 capsules by [facility] 1 hour prior to appointment diphenhydrAMINE hydrochloride [...] two at bedtime Take 1 capsule by [facility] three times daily for 180 days. [...] on above: Take 4 tablets by mo [facility] daily with breakfast. methocarbamol 500 mg oral tablet (10 sources) Muscle Relaxant Start: 09-15-19 End: 10-15-19 take 1 tablet by mouth every twelve hours as needed methocarbamol (ROBAXIN) 500 mg tablet Take 1 tablet by mouth twice daily as needed. 60 tablet 0 09/14/2022 10/14/2022 Comment on above: [facility] twice daily as needed. ondansetron 4 mg [...] Comment on above: [facility] tablet [facility] every 6 hours as needed for [...] sources) Long-term current use of anticoagulant; Translations: [oysterman (current) use of anticoagulants] 03-01-2022 Episodic Other [...] (Bld) [Mass fraction] 6.3 % High <=5.6 [facility] Comment on above: Order Comment: 303-2 Result Comment: Norm al < 5.7 % Prediabetic 5.7 - 6.4 % Diabetic >or= 6.5 % Please note range changes. Performed By: #### L 503.0106, L501.9985 #### [facility] [address] [place], [address] Vitamin B12on 01-26-2025 Cobalamin (Vitamin B12) [Mass/Vol] 511 pg/mL Normal 180-914 [facility] Comment on above: Order Comment: 303-2 Performed By: #### L 503.0106, L501.9985 #### [facility] [address] [place], [address] Hemoglobin A1con 12-19-2024 HbA1c (Bld) [Mass fraction] 6.4 % High <=5.6 [facility] Comment on above: Order Comment: 303.2 Result Comment: Norm al < 5.7 % Prediabetic 5.7 - 6.4 % Diabetic >or= 6.5 % Please note range changes. Performed By: #### L 500.2500, L100.0100 #### [facility] [address] [place], [place], [address] Hemoglobin A1con 11-03-2024 HbA1c (Bld) [Mass fraction] 6.7 % High <=5.6 [facility] Comment on above: Order Comment: 303.2 Result Comment: Norm al < 5.7 % Prediabetic 5.7 - 6.4 % Diabetic >or= 6.5 % Please note range changes. Performed By: #### L 501.9985 #### [facility] [address] [place], [place], [id number] Absolute lymphocyte countOrd ered By: Deep Dela Cruz on 10-31-2024 Lymphocytes Auto (Unsp spec) [#/Vol] 1.07 10*3/uL 0.83-4.51 [facility] Absolute neutrophil countOrd ered By: Deep Dela Cruz on 10-31-2024 Neutrophils (Bld) [#/Vol] 12.1 10*3/uL High 2.0-7.7 [facility] Anion gap in Serum or Plasma Ordered By: Deep Dela Cruz on 10-31-2024 Anion gap [Moles/Vol] 12 mmol/L 5-15 [facility] Automated lymphocyte count a s percentage of total leukocytesOrdered By: Deep Dela Cruz on 10-31-2024 Lymphocytes/100 WBC Auto (Unsp spec) 7.5 % Low 19-41 [facility] BUN/creatinine ratioOrdered By: Deep Dela Cruz on 10-31-2024 Urea nitrogen/Creatinine [Mass ratio] 60.5 mg/mg High 10-20 [facility] Basic Metabolic Profile (BMP )on 10-31-2024 BUN/CRE 60.5 RATIO High 10-20 [facility] Comment on above: Order Comment: 303.2 Performed By: #### L 300.4310, L300.3900 #### [facility] [address] [place], [address] Calcium [Mass/Vol] 9.9 mg/dL Normal 7.6-11.0 [facility] Comment on above: Order Comment: 303.2 Performed By: #### L 300.4310, L300.3900 #### [facility] [address] [place], [address] Chloride [Moles/Vol] 102 mmol/L Normal 98-[address] [facility] Comment on above: Order Comment: 303.2 Performed By: #### L 300.4310, L300.3900 #### [facility] [address] [place], [address] CO2 [Moles/Vol] 21.8 mmol/L Normal 21.0-32.0 [facility] Comment on above: Order Comment: 303.2 Performed By: #### L 300.4310, L300.3900 #### [facility] [address] [place], [address] Creatinine [Mass/Vol] 0.56 mg/dL Low 0.70-1.20 [facility] Comment on above: Order Comment: 303.2 Performed By: #### L 300.4310, L300.3900 #### [facility] [address] [place], [address] GAP 12 Normal 5-15 [facility] Comment on above: Order Comment: 303.2 Performed By: #### L 300.4310, L300.3900 #### [facility] [address] [place], [address] GFR/1.73 sq M.predicted among non-blacks MDRD (S/P/Bld) [Vol rate/Area] 91 mL/min/{1.73_m2} Normal >60 [facility] Comment on above: Order Comment: 303.2 Result Comment: mL/m in/1.73m2 CKD-EPI Creatinine Equation (2020) Performed By: #### L 300.4310, L300.3900 #### [facility] [address] [place], [address] Glucose [Mass/Vol] 161 mg/dL High 70-99 [facility] Comment on above: Order Comment: 303.2 Performed By: #### L 300.4310, L300.3900 #### [facility] [address] [place], [address] Potassium [Moles/Vol] 3.8 mmol/L Normal 3.3-5.1 [facility] Comment on above: Order Comment: 303.2 Performed By: #### L 300.4310, L300.3900 #### [facility] [address] [place], [address] Sodium [Moles/Vol] 135 mmol/L Normal 133-145 [facility] Comment on above: Order Comment: 303.2 Performed By: #### L 300.4310, L300.3900 #### [facility] [address] [place], [address] Urea nitrogen [Mass/Vol] 34 mg/dL High 4-19 [facility] Comment on above: Order Comment: 303.2 Performed By: #### L 300.4310, L300.3900 #### [facility] [address] [place], [address] Basophil percentageOrdered B y: Deep Dela Cruz on 10-31-2024 Basophils/100 WBC (Bld) 0.4 % 0-1 [facility] CBC W/Diff, Automatedon 06-0 Absolute Lymph 1.07 X10 3/uL Normal 0.83-4.51 [facility] Comment on above: Order Comment: 303.2 Performed By: #### L 500.2500, L100.0100 #### [facility] [address] [place], [address] Absolute Neut 12.1 X10 3/uL High 2.0-7.7 [facility] Comment on above: Order Comment: 303.2 Performed By: #### L 500.2500, L100.0100 #### [facility] [address] [place], [address] Basophils/100 WBC (Bld) 0.4 % Normal 0-1 [facility] Comment on above: Order Comment: 303.2 Performed By: #### L 500.2500, L100.0100 #### [facility] [address] [place], [address] Eosinophils/100 WBC (Bld) 0.1 % Normal 0-5 [facility] Comment on above: Order Comment: 303.2 Performed By: #### L 500.2500, L100.0100 #### [facility] [address] [place], [address] Erythrocyte distribution width (RBC) [Ratio] 15.0 % High 11.6-14.6 [facility] Comment on above: Order Comment: 303.2 Performed By: #### L 500.2500, L100.0100 #### [facility] [address] [place], [address] Hematocrit (Bld) [Volume fraction] 34.0 % Low 37-47 [facility] Comment on above: Order Comment: 303.2 Performed By: #### L 500.2500, L100.0100 #### [facility] [address] [place], [address] Hemoglobin (Bld) [Mass/Vol] 11.1 g/dL Low 12.0-15.0 [facility] Comment on above: Order Comment: 303.2 Performed By: #### L 500.2500, L100.0100 #### [facility] [address] [place], [address] IG% 2.400 High 0.0-0.9 [facility] Comment on above: Order Comment: 303.2 Result Comment: IG% - Immature Granulocytes (promyelocytes, myelocytes and metamyelocytes) > 1% indicates that a LEFT SHIFT is Present. Performed By: #### L 500.2500, L100.0100 #### [facility] [address] [place] [place], [address] Lymphocytes/100 WBC (Bld) 7.5 % Low 19-41 [facility] Comment on above: Order Comment: 303.2 Performed By: #### L 500.2500, L100.0100 #### [facility] [address] [place], [address] MCH (RBC) [Entitic mass] 30.0 pg Normal 27.0-32.0 [facility] Comment on above: Order Comment: 303.2 Performed By: #### L 500.2500, L100.0100 #### [facility] [address] [place], [address] MCHC (RBC) [Mass/Vol] 32.6 g/dL Normal 32-36 [facility] Comment on above: Order Comment: 303.2 Performed By: #### L 500.2500, L100.0100 #### [facility] [address] [place], [address] MCV (RBC) [Entitic vol] 91.9 fL Normal 81-99 [facility] Comment on above: Order Comment: 303.2 Performed By: #### L 500.2500, L100.0100 #### [facility] [address] [place], [address] Monocytes/100 WBC (Bld) 5.6 % Normal 0-10 [facility] Comment on above: Order Comment: 303.2 Performed By: #### L 500.2500, L100.0100 #### [facility] [address] [place], [address] Neutrophils/100 WBC (Bld) 84.0 % High 47-70 [facility] Comment on above: Order Comment: 303.2 Performed By: #### L 500.2500, L100.0100 #### [facility] [address] [place], [address] Nucleated RBC (Bld) [#/Vol] 0 10*3/uL Normal 0-5 [facility] Comment on above: Order Comment: 303.2 Performed By: #### L 500.2500, L100.0100 #### [facility] [address] [place], [address] Platelet mean volume (Bld) [Entitic vol] 10.0 fL Normal 6.2-12.0 [facility] Comment on above: Order Comment: 303.2 Performed By: #### L 500.2500, L100.0100 #### [facility] [address] [place], [address] Platelets (Bld) [#/Vol] 555 10*3/uL High 150-450 [facility] Comment on above: Order Comment: 303.2 Performed By: #### L 500.2500, L100.0100 #### [facility] [address] [place], [address] RBC (Bld) [#/Vol] 3.70 10*6/uL Low 4.2-5.4 [facility] Comment on above: Order Comment: 303.2 Performed By: #### L 500.2500, L100.0100 #### [facility] [address] [place], [address] RDW SD 50.1 fl High 35.1-43.9 [facility] Comment on above: Order Comment: 303.2 Performed By: #### L 500.2500, L100.0100 #### [facility] [address] [place], [address] WBC (Bld) [#/Vol] 14.4 10*3/uL High 4.4-11.0 [facility] Comment on above: Order Comment: 303.2 Performed By: #### L 500.2500, L100.0100 #### [facility] [address] [place], [address] Carbon dioxide, total [Moles /volume] in Central venous bloodOrdered By: Deep Dela Cruz on 10-31-2024 CO2 [Moles/Vol] 21.8 mmol/L 21.0-32.0 [facility] Chloride assayOrdered By: Fried on 10-31-2024 Chloride [Moles/Vol] 102 mmol/L 98-[address] [facility] Eosinophil percentageOrdered By: Deep Dela Cruz on 10-31-2024 Eosinophils/100 WBC (Bld) 0.1 % 0-5 [facility] Erythrocyte distribution wid th ratioOrdered By: Deep Dela Cruz on 10-31-2024 Erythrocyte distribution width (RBC) [Ratio] 15.0 % High 11.6-14.6 [facility] Erythrocyte distribution wid th standard deviationOrdered By: Deep Dela Cruz on 10-31-2024 Erythrocyte distribution width (RBC) [Ratio] 50.1 fl High 35.1-43.9 [facility] Glomerular filtration rate ( GFR) estimation/1.73 sq m using serum, plasma, or whole bOrdered By: Deep Dela Cruz on 10-31-2024 GFR/1.73 sq M.predicted among non-blacks MDRD (S/P/Bld) [Vol rate/Area] 91 mL/min/{1.73_m2} >60 [facility] Comment on above: mL/min/1.73m2 CKD-EP I Creatinine Equation (2020) Hematocrit Auto (Bld) [Volum e fraction]Ordered By: Deep Dela Cruz on 10-31-2024 Hematocrit (Bld) [Volume fraction] 34.0 % Low 37-47 [facility] Hemoglobin measurementOrdere d By: Deep Dela Cruz on 10-31-2024 Hemoglobin (Bld) [Mass/Vol] 11.1 g/dL Low 12.0-15.0 [facility] Immature granulocytes/100 WB C Auto (Bld)Ordered By: Deep Dela Cruz on 10-31-2024 Immature granulocytes/100 WBC (Bld) 2.400 % High 0.0-0.9 [facility] Comment on above: IG% - Immature Granu locytes (promyelocytes, myelocytes and metamyelocytes) > 1% indicates that a LEFT SHIFT is Present. MCV (mean corpuscular volume ) determinationOrdered By: Deep Dela Cruz on 10-31-2024 MCV (RBC) [Entitic vol] 91.9 fL 81-99 [facility] Mean corpuscular hemoglobin (MCH) determinationOrdered By: Deep Dela Cruz on 10-31-2024 MCH (RBC) [Entitic mass] 30.0 pg 27.0-32.0 [facility] Mean corpuscular hemoglobin concentration (MCHC) determinationOrdered By: Deep Dela Cruz on 10-31-2024 MCHC (RBC) [Mass/Vol] 32.6 g/dL 32-36 [facility] Mean platelet volume determi nationOrdered By: Deep Dela Cruz on 10-31-2024 Platelet mean volume (Bld) [Entitic vol] 10.0 fL 6.2-12.0 [facility] Monocyte percentageOrdered B y: Deep Dela Cruz on 10-31-2024 Monocytes/100 WBC (Bld) 5.6 % 0-10 [facility] Neutrophil percentageOrdered By: Deep Dela Cruz on 10-31-2024 Neutrophils/100 WBC (Bld) 84.0 % High 47-70 [facility] Nucleated red blood cell per centageOrdered By: Deep Dela Cruz on 10-31-2024 Nucleated RBC/100 WBC (Bld) [Ratio] 0 % 0-5 [facility] Platelet countOrdered By: Fried on 10-31-2024 Platelets (Bld) [#/Vol] 555 10*3/uL High 150-450 [facility] Potassium measurement (mass/ volume)Ordered By: Deep Dela Cruz on 10-31-2024 Potassium (Unsp spec) [Mass/Vol] 3.8 mmol/L 3.3-5.1 [facility] RBC Auto (Bld) [#/Vol]Ordere d By: Deep Dela Cruz on 10-31-2024 RBC (Bld) [#/Vol] 3.70 10*6/uL Low 4.2-5.4 [facility] Serum creatinine measurement (mass/volume)Ordered By: Deep Dela Cruz on 10-31-2024 Creatinine [Mass/Vol] 0.56 mg/dL Low 0.70-1.20 [facility] Serum glucose measurement (m ass/volume)Ordered By: Deep Dela Cruz on 10-31-2024 Glucose [Mass/Vol] 161 mg/dL High 70-99 [facility] Serum or plasma calcium jessi urement (mass/volume)Ordered By: Deep Dela Cruz on 10-31-2024 Calcium [Mass/Vol] 9.9 mg/dL 7.6-11.0 [facility] Serum or plasma urea nitroge n measurement (mass/volume)Ordered By: Deep Dela Cruz on 10-31-2024 Urea nitrogen [Mass/Vol] 34 mg/dL High 4-19 [facility] Sodium levelOrdered By: Deep Dela Cruz on 10-31-2024 Sodium [Moles/Vol] 135 mmol/L 133-145 [facility] White blood cell (WBC) count Ordered By: Deep Dela Cruz on 10-31-2024 WBC (Bld) [#/Vol] 14.4 10*3/uL High 4.4-11.0 [facility] Anion gap in Serum or Plasma Ordered By: Deep Dela Cruz on 10-26-2024 Anion gap [Moles/Vol] 11 mmol/L 5-15 [facility] BUN/creatinine ratioOrdered By: Deep Dela Cruz on 10-26-2024 Urea nitrogen/Creatinine [Mass ratio] 51.9 mg/mg High 03-19 [facility] Basic Metabolic Profile (BMP )on 10-26-2024 BUN/CRE 51.9 RATIO High 03-19 [facility] Comment on above: Order Comment: 303.2 Performed By: #### L 300.4720, L300.3900 #### [facility] [place], [address] Calcium [Mass/Vol] 9.1 mg/dL Normal 7.6-11.0 [facility] Comment on above: Order Comment: 303.2 Performed By: #### L 300.4310, L300.3900 #### [facility] [address] [place], [address] Chloride [Moles/Vol] 102 mmol/L Normal 98-[address] [facility] Comment on above: Order Comment: 303.2 Performed By: #### L 300.4310, L300.3900 #### [facility] [address] [place], [address] CO2 [Moles/Vol] 21.2 mmol/L Normal 21.0-32.0 [facility] Comment on above: Order Comment: 303.2 Performed By: #### L 300.4310, L300.3900 #### [facility] [address] [place], [address] Creatinine [Mass/Vol] 0.39 mg/dL Low 0.70-1.20 [facility] Comment on above: Order Comment: 303.2 Performed By: #### L 300.4310, L300.3900 #### [facility] [address] [place], [address] GAP 11 Normal 5-15 [facility] Comment on above: Order Comment: 303.2 Performed By: #### L 300.4310, L300.3900 #### [facility] [address] [place], [address] GFR/1.73 sq M.predicted among non-blacks MDRD (S/P/Bld) [Vol rate/Area] 99 mL/min/{1.73_m2} Normal >60 [facility] Comment on above: Order Comment: 303.2 Result Comment: mL/m in/1.73m2 CKD-EPI Creatinine Equation (2020) Performed By: #### L 300.4310, L300.3900 #### [facility] [address] [place], [address] Glucose [Mass/Vol] 114 mg/dL High 70-99 [facility] Comment on above: Order Comment: 303.2 Performed By: #### L 300.4310, L300.3900 #### [facility] [address] [place], [address] Potassium [Moles/Vol] 3.7 mmol/L Normal 3.3-5.1 [facility] Comment on above: Order Comment: 303.2 Performed By: #### L 300.4310, L300.3900 #### [facility] [address] [place], [address] Sodium [Moles/Vol] 135 mmol/L Normal 133-145 [facility] Comment on above: Order Comment: 303.2 Performed By: #### L 300.4310, L300.3900 #### [facility] [address] [place], [address] Urea nitrogen [Mass/Vol] 20 mg/dL High 4-19 [facility] Comment on above: Order Comment: 303.2 Performed By: #### L 300.4310, L300.3900 #### [facility] [address] [place], [address] CBC-Complete Blood Cnt No Di ffon 10-26-2024 Erythrocyte distribution width (RBC) [Ratio] 15.3 % High 11.6-14.6 [facility] Comment on above: Order Comment: 303.2 Performed By: #### L 300.4310, L300.3900 #### [facility] [address] [place], [address] Hematocrit (Bld) [Volume fraction] 33.1 % Low 37-47 [facility] Comment on above: Order Comment: 303.2 Performed By: #### L 300.4310, L300.3900 #### [facility] [address] [place], [address] Hemoglobin (Bld) [Mass/Vol] 10.5 g/dL Low 12.0-15.0 [facility] Comment on above: Order Comment: 303.2 Performed By: #### L 300.4310, L300.3900 #### [facility] [address] [place], [address] MCH (RBC) [Entitic mass] 30.1 pg Normal 27.0-32.0 [facility] Comment on above: Order Comment: 303.2 Performed By: #### L 300.4310, L300.3900 #### [facility] [address] [place], [address] MCHC (RBC) [Mass/Vol] 31.7 g/dL Low 32-36 [facility] Comment on above: Order Comment: 303.2 Performed By: #### L 300.4310, L300.3900 #### [facility] [address] [place], [address] MCV (RBC) [Entitic vol] 94.8 fL Normal 81-99 [facility] Comment on above: Order Comment: 303.2 Performed By: #### L 300.4310, L300.3900 #### [facility] [address] [place], [address] Platelet mean volume (Bld) [Entitic vol] 10.6 fL Normal 6.2-12.0 [facility] Comment on above: Order Comment: 303.2 Performed By: #### L 300.4310, L300.3900 #### [facility] [address] [place], [address] Platelets (Bld) [#/Vol] 328 10*3/uL Normal 150-450 [facility] Comment on above: Order Comment: 303.2 Performed By: #### L 300.4310, L300.3900 #### [facility] [address] [place], [address] RBC (Bld) [#/Vol] 3.49 10*6/uL Low 4.2-5.4 [facility] Comment on above: Order Comment: 303.2 Performed By: #### L 300.4310, L300.3900 #### [facility] [address] [place], [address] RDW SD 53.2 fl High 35.1-43.9 [facility] Comment on above: Order Comment: 303.2 Performed By: #### L 300.4310, L300.3900 #### [facility] [address] [place], [address] WBC (Bld) [#/Vol] 9.9 10*3/uL Normal 4.4-11.0 [facility] Comment on above: Order Comment: 303.2 Performed By: #### L 300.4310, L300.3900 #### [facility] [address] [place], [address] Carbon dioxide, total [Moles /volume] in Central venous bloodOrdered By: Deep Dela Cruz on 10-26-2024 CO2 [Moles/Vol] 21.2 mmol/L 21.0-32.0 [facility] Chloride assayOrdered By: Fried on 10-26-2024 Chloride [Moles/Vol] 102 mmol/L 98-[address] [facility] Erythrocyte distribution wid th ratioOrdered By: Deep Dela Cruz on 10-26-2024 Erythrocyte distribution width (RBC) [Ratio] 15.3 % High 11.6-14.6 [facility] Erythrocyte distribution wid th standard deviationOrdered By: Deep Dela Cruz on 10-26-2024 Erythrocyte distribution width (RBC) [Ratio] 53.2 fl High 35.1-43.9 [facility] Glomerular filtration rate ( GFR) estimation/1.73 sq m using serum, plasma, or whole bOrdered By: Deep Dela Cruz on 10-26-2024 GFR/1.73 sq M.predicted among non-blacks MDRD (S/P/Bld) [Vol rate/Area] 99 mL/min/{1.73_m2} >60 [facility] Comment on above: mL/min/1.73m2 CKD-EP I Creatinine Equation (2020) Hematocrit Auto (Bld) [Volum e fraction]Ordered By: Deep Dela Cruz on 10-26-2024 Hematocrit (Bld) [Volume fraction] 33.1 % Low 37-47 [facility] Hemoglobin measurementOrdere d By: Deep Dela Cruz on 10-26-2024 Hemoglobin (Bld) [Mass/Vol] 10.5 g/dL Low 12.0-15.0 [facility] MCV (mean corpuscular volume ) determinationOrdered By: Deep Dela Cruz on 10-26-2024 MCV (RBC) [Entitic vol] 94.8 fL 81-99 [facility] Mean corpuscular hemoglobin (MCH) determinationOrdered By: Deep Dela Cruz on 10-26-2024 MCH (RBC) [Entitic mass] 30.1 pg 27.0-32.0 [facility] Mean corpuscular hemoglobin concentration (MCHC) determinationOrdered By: Deep Dela Cruz on 10-26-2024 MCHC (RBC) [Mass/Vol] 31.7 g/dL Low 32-36 [facility] Mean platelet volume determi nationOrdered By: Deep Dela Cruz on 10-26-2024 Platelet mean volume (Bld) [Entitic vol] 10.6 fL 6.2-12.0 [facility] Platelet countOrdered By: Fried on 10-26-2024 Platelets (Bld) [#/Vol] 328 10*3/uL 150-450 [facility] Potassium measurement (mass/ volume)Ordered By: Deep Dela Cruz on 10-26-2024 Potassium (Unsp spec) [Mass/Vol] 3.7 mmol/L 3.3-5.1 [facility] RBC Auto (Bld) [#/Vol]Ordere d By: Deep Dela Cruz on 10-26-2024 RBC (Bld) [#/Vol] 3.49 10*6/uL Low 4.2-5.4 [facility] Serum creatinine measurement (mass/volume)Ordered By: Deep Dela Cruz on 10-26-2024 Creatinine [Mass/Vol] 0.39 mg/dL Low 0.70-1.20 [facility] Serum glucose measurement (m ass/volume)Ordered By: Deep Dela Cruz on 10-26-2024 Glucose [Mass/Vol] 114 mg/dL High 70-99 [facility] Serum or plasma calcium jessi urement (mass/volume)Ordered By: Deep Dela Cruz on 10-26-2024 Calcium [Mass/Vol] 9.1 mg/dL 7.6-11.0 [facility] Serum or plasma urea nitroge n measurement (mass/volume)Ordered By: Deep Dela Cruz on 10-26-2024 Urea nitrogen [Mass/Vol] 20 mg/dL High 4-19 [facility] Sodium levelOrdered By: Deep Dela Cruz on 10-26-2024 Sodium [Moles/Vol] 135 mmol/L 133-145 [facility] White blood cell (WBC) count Ordered By: Deep Dela Cruz on 10-26-2024 WBC (Bld) [#/Vol] 9.9 10*3/uL 4.4-11.0 [facility] Hemoglobin A1con 09-26-2024 HbA1c (Bld) [Mass fraction] 5.8 % High <=5.6 [facility] Comment on above: Order Comment: 303-2 Result Comment: Norm al < 5.7 % Prediabetic 5.7 - 6.4 % Diabetic >or= 6.5 % Please note range changes. Performed By: #### L 503.0106, L501.9985 #### [facility] [address] [place] [address], [address] Hemoglobin A1c percentageOrd ered By: Deep Dela Cruz on 09-26-2024 HbA1c (Bld) [Mass fraction] 5.8 % High <5.7 [facility] Comment on above: Normal < 5.7 % Predi abetic 5.7 - 6.4 % Diabetic >or= 6.5 % Please note range changes. Anion gap in Serum or Plasma Ordered By: Deep Dela Cruz on 09-21-2024 Anion gap [Moles/Vol] 10 mmol/L 5-15 [facility] BUN/creatinine ratioOrdered By: Deep Dela Cruz on 09-21-2024 Urea nitrogen/Creatinine [Mass ratio] 20.3 mg/mg High 10-20 [facility] Bilirubin, totalOrdered By: Deep Dela Cruz on 09-21-2024 Bilirubin [Mass/Vol] 0.22 mg/dL 0.00-1.[address] [facility] CBC-Complete Blood Cnt No Di ffon 09-21-2024 Erythrocyte distribution width (RBC) [Ratio] 18.6 % High 11.6-14.6 [facility] Comment on above: Order Comment: 303-2 Performed By: #### L 500.4050, L100.0500 #### [facility] [address] [place], [address] Hematocrit (Bld) [Volume fraction] 39.8 % Normal 37-47 [facility] Comment on above: Order Comment: 303-2 Performed By: #### L 500.4050, L100.0500 #### [facility] [address] [place], [address] Hemoglobin (Bld) [Mass/Vol] 12.4 g/dL Normal 12.0-15.0 [facility] Comment on above: Order Comment: 303-2 Performed By: #### L 500.4050, L100.0500 #### [facility] [address] [place], [address] MCH (RBC) [Entitic mass] 28.6 pg Normal 27.0-32.0 [facility] Comment on above: Order Comment: 303-2 Performed By: #### L 500.4050, L100.0500 #### [facility] [address] [place], [address] MCHC (RBC) [Mass/Vol] 31.2 g/dL Low 32-36 [facility] Comment on above: Order Comment: 303-2 Performed By: #### L 500.4050, L100.0500 #### [facility] [address] [place], [address] MCV (RBC) [Entitic vol] 91.9 fL Normal 81-99 [facility] Comment on above: Order Comment: 303-2 Performed By: #### L 500.4050, L100.0500 #### [facility] [address] [place], [address] Platelet mean volume (Bld) [Entitic vol] 10.4 fL Normal 6.2-12.0 [facility] Comment on above: Order Comment: 303-2 Performed By: #### L 500.4050, L100.0500 #### [facility] [address] [place], [address] Platelets (Bld) [#/Vol] 320 10*3/uL Normal 150-450 [facility] Comment on above: Order Comment: 303-2 Performed By: #### L 500.4050, L100.0500 #### [facility] [address] [place], [address] RBC (Bld) [#/Vol] 4.33 10*6/uL Normal 4.2-5.4 [facility] Comment on above: Order Comment: 303-2 Performed By: #### L 500.4050, L100.0500 #### [facility] [address] [place], [address] RDW SD 62.9 fl High 35.1-43.9 [facility] Comment on above: Order Comment: 303-2 Performed By: #### L 500.4050, L100.0500 #### [facility] [address] [place], [address] WBC (Bld) [#/Vol] 6.5 10*3/uL Normal 4.4-11.0 [facility] Comment on above: Order Comment: 303-2 Performed By: #### L 500.4050, L100.0500 #### [facility] [address] [place], [address] Carbon dioxide, total [Moles /volume] in Central venous bloodOrdered By: Deep Del aCruz on 09-21-2024 CO2 [Moles/Vol] 22.1 mmol/L 21.0-32.0 [facility] Chloride assayOrdered By: Fried on 09-21-2024 Chloride [Moles/Vol] 105 mmol/L 98-[address] [facility] Comprehensive Metabolic Prof ilon 09-21-2024 Albumin [Mass/Vol] 2.6 g/dL Low 3.4-4.8 [facility] Comment on above: Order Comment: 303-2 Performed By: #### L 500.4050, L100.0500 #### [facility] [address] [place], [address] Albumin/Globulin [Mass ratio] 0.8 {ratio} Low 0.9-2.4 [facility] Comment on above: Order Comment: 303-2 Performed By: #### L 500.4050, L100.0500 #### [facility] [address] [place], [address] ALK PHOS 124 U/L High 35-104 [facility] Comment on above: Order Comment: 303-2 Performed By: #### L 500.4050, L100.0500 #### [facility] [address] [place], [address] ALT [Catalytic activity/Vol] 11 U/L Normal <=34 [facility] Comment on above: Order Comment: 303-2 Performed By: #### L 500.4050, L100.0500 #### [facility] [address] [place], [address] AST [Catalytic activity/Vol] 26 U/L Normal <=31 [facility] Comment on above: Order Comment: 303-2 Performed By: #### L 500.4050, L100.0500 #### [facility] [address] [place], [address] Bilirubin [Mass/Vol] 0.22 mg/dL Normal 0.00-1.[address] [facility] Comment on above: Order Comment: 303-2 Performed By: #### L 500.4050, L100.0500 #### [facility] [address] [place], [address] BUN/CRE 20.3 RATIO High 10-20 [facility] Comment on above: Order Comment: 303-2 Performed By: #### L 500.4050, L100.0500 #### [facility] [address] [place], [address] Calcium [Mass/Vol] 8.9 mg/dL Normal 7.6-11.0 [facility] Comment on above: Order Comment: 303-2 Performed By: #### L 500.4050, L100.0500 #### [facility] [address] [place], [address] Chloride [Moles/Vol] 105 mmol/L Normal 98-[address] [facility] Comment on above: Order Comment: 303-2 Performed By: #### L 500.4050, L100.0500 #### [facility] [address] [place], [address] CO2 [Moles/Vol] 22.1 mmol/L Normal 21.0-32.0 [facility] Comment on above: Order Comment: 303-2 Performed By: #### L 500.4050, L100.0500 #### [facility] [address] [place], [address] Creatinine [Mass/Vol] 0.66 mg/dL Low 0.70-1.20 [facility] Comment on above: Order Comment: 303-2 Performed By: #### L 500.4050, L100.0500 #### [facility] [address] [place], [address] GAP 10 Normal 5-15 [facility] Comment on above: Order Comment: 303-2 Performed By: #### L 500.4050, L100.0500 #### [facility] [address] [place], [address] GFR/1.73 sq M.predicted among non-blacks MDRD (S/P/Bld) [Vol rate/Area] 88 mL/min/{1.73_m2} Normal >60 [facility] Comment on above: Order Comment: 303-2 Result Comment: mL/m in/1.73m2 CKD-EPI Creatinine Equation (2020) Performed By: #### L 500.4050, L100.0500 #### [facility] [address] [place], [address] Globulin (S) [Mass/Vol] 3.5 g/dL Normal 2.2-4.2 [facility] Comment on above: Order Comment: 303-2 Performed By: #### L 500.4050, L100.0500 #### [facility] [address] [place], [address] Glucose [Mass/Vol] 81 mg/dL Normal 70-99 [facility] Comment on above: Order Comment: 303-2 Performed By: #### L 500.4050, L100.0500 #### [facility] [address] [place], [address] Potassium [Moles/Vol] 4.0 mmol/L Normal 3.3-5.1 [facility] Comment on above: Order Comment: 303-2 Performed By: #### L 500.4050, L100.0500 #### [facility] [address] [place], [address] Sodium [Moles/Vol] 137 mmol/L Normal 133-145 [facility] Comment on above: Order Comment: 303-2 Performed By: #### L 500.4050, L100.0500 #### [facility] [address] [place], [address] T PROT 6.1 g/dL Normal 5.9-8.4 [facility] Comment on above: Order Comment: 303-2 Performed By: #### L 500.4050, L100.0500 #### [facility] [address] [place], [address] Urea nitrogen [Mass/Vol] 13 mg/dL Normal 4-19 [facility] Comment on above: Order Comment: 303-2 Performed By: #### L 500.4050, L100.0500 #### [facility] [address] [place], [address] Erythrocyte distribution wid th ratioOrdered By: Deep Dela Cruz on 09-21-2024 Erythrocyte distribution width (RBC) [Ratio] 18.6 % High 11.6-14.6 [facility] Erythrocyte distribution wid th standard deviationOrdered By: Deep Dela Cruz on 09-21-2024 Erythrocyte distribution width (RBC) [Ratio] 62.9 fl High 35.1-43.9 [facility] Glomerular filtration rate ( GFR) estimation/1.73 sq m using serum, plasma, or whole bOrdered By: Deep Dela Cruz on 09-21-2024 GFR/1.73 sq M.predicted among non-blacks MDRD (S/P/Bld) [Vol rate/Area] 88 mL/min/{1.73_m2} >60 [facility] Comment on above: mL/min/1.73m2 CKD-EP I Creatinine Equation (2020) Hematocrit Auto (Bld) [Volum e fraction]Ordered By: Deep Dela Cruz on 09-21-2024 Hematocrit (Bld) [Volume fraction] 39.8 % 37-47 [facility] Hemoglobin measurementOrdere d By: Deep Dela Cruz on 09-21-2024 Hemoglobin (Bld) [Mass/Vol] 12.4 g/dL 12.0-15.0 [facility] - Chemistry and C hemistry - challengeOrdered By: Deep Dela Cruz on 09-21-2024 AST [Catalytic activity/Vol] 26 U/L <32 [facility] MCV (mean corpuscular volume ) determinationOrdered By: Deep Dela Cruz on 09-21-2024 MCV (RBC) [Entitic vol] 91.9 fL 81-99 [facility] Mean corpuscular hemoglobin (MCH) determinationOrdered By: Deep Dela Cruz on 09-21-2024 MCH (RBC) [Entitic mass] 28.6 pg 27.0-32.0 [facility] Mean corpuscular hemoglobin concentration (MCHC) determinationOrdered By: Deep Dela Cruz on 09-21-2024 MCHC (RBC) [Mass/Vol] 31.2 g/dL Low 32-36 [facility] Mean platelet volume determi nationOrdered By: Deep Dela Cruz on 09-21-2024 Platelet mean volume (Bld) [Entitic vol] 10.4 fL 6.2-12.0 [facility] Platelet countOrdered By: Fried on 09-21-2024 Platelets (Bld) [#/Vol] 320 10*3/uL 150-450 [facility] Potassium measurement (mass/ volume)Ordered By: Deep Dela Cruz on 09-21-2024 Potassium (Unsp spec) [Mass/Vol] 4.0 mmol/L 3.3-5.1 [facility] RBC Auto (Bld) [#/Vol]Ordere d By: Deep Dela Cruz on 09-21-2024 RBC (Bld) [#/Vol] 4.33 10*6/uL 4.2-5.4 [facility] Serum creatinine measurement (mass/volume)Ordered By: Deep Dela Cruz on 09-21-2024 Creatinine [Mass/Vol] 0.66 mg/dL Low 0.70-1.20 [facility] Serum globulin measurementOr dered By: Deep Dela Cruz on 09-21-2024 Globulin (S) [Mass/Vol] 3.5 g/dL 2.2-4.2 [facility] Serum glucose measurement (m ass/volume)Ordered By: Deep Dela Cruz on 09-21-2024 Glucose [Mass/Vol] 81 mg/dL 70-99 [facility] Serum or plasma alanine wilson otransferase (ALT) measurementOrdered By: Deep Dela Cruz on 09-21-2024 ALT [Catalytic activity/Vol] 11 U/L <35 [facility] Serum or plasma albumin jessi urement (mass/volume)Ordered By: Deep Dela Cruz on 09-21-2024 Albumin [Mass/Vol] 2.6 g/dL Low 3.4-4.8 [facility] Serum or plasma albumin/glob ulin mass ratioOrdered By: Deep Dela Cruz on 09-21-2024 Albumin/Globulin [Mass ratio] 0.8 {ratio} Low 0.9-2.4 [facility] Serum or plasma alkaline jero sphatase measurementOrdered By: Deep Dela Cruz on 09-21-2024 ALP [Catalytic activity/Vol] 124 U/L High 35-104 [facility] Serum or plasma calcium jessi urement (mass/volume)Ordered By: Deep Dela Cruz on 09-21-2024 Calcium [Mass/Vol] 8.9 mg/dL 7.6-11.0 [facility] Serum or plasma urea nitroge n measurement (mass/volume)Ordered By: Deep Dela Cruz on 09-21-2024 Urea nitrogen [Mass/Vol] 13 mg/dL 4-19 [facility] Sodium levelOrdered By: Deep Dela Cruz on 09-21-2024 Sodium [Moles/Vol] 137 mmol/L 133-145 [facility] Total proteinOrdered By: Janet Dela Cruz on 09-21-2024 Protein [Mass/Vol] 6.1 g/dL 5.9-8.4 [facility] White blood cell (WBC) count Ordered By: Deep Dela Cruz on 09-21-2024 WBC (Bld) [#/Vol] 6.5 10*3/uL 4.4-11.0 [facility] Urine Cultureon 09-15-2024 [facility] STRAIGHT CATH Urine Culture Morganella morganii sp morgani [place] Count 80,000-100,000 Klebsiella pneumoniae sp pneum Klebsiella [...] TMP SMX Islt VERN <=20 S Normal [facility] Comment on above: Performed By: #### L 503.0106, L501.9985 #### [facility] [address] [place], [place], [id number] Urinalysis, Completeon 09-12 AMORPHOUS 1+ Normal [facility] Comment on above: Order Comment: 303-2 Performed By: #### L 503.0106, L501.9985 #### [facility] [address] [place], [address] RBC 0-5 SEEN Normal 0-5 [facility] Comment on above: Order Comment: 303-2 Performed By: #### L 503.0106, L501.9985 #### [facility] [address] [place], [place], [id number] TRIPLE PHOS 1+ /hpf Normal [facility] Comment on above: Order Comment: 303-2 Performed By: #### L 503.0106, L501.9985 #### [facility] [address] [place], [address] BACTERIA 3+ /hpf Normal None Seen [facility] Comment on above: Order Comment: 303-2 Performed By: #### L 503.0106, L501.9985 #### [facility] [address] [place], [address] WBC 10-25 SEEN Normal 0-5 [facility] Comment on above: Order Comment: 303-2 Performed By: #### L 503.0106, L501.9985 #### [facility] [address] [place], [address] EPI,SQUAMOUS 0 SEEN Normal 5-10 [facility] Comment on above: Order Comment: 303-2 Performed By: #### L 503.0106, L501.9985 #### [facility] [address] [place], [address] Mucus Ql (Urine sed) 0 SEEN Normal [facility] Comment on above: Order Comment: 303-2 Performed By: #### L 503.0106, L501.9985 #### [facility] [address] [place], [address] Amorphous sediment detection in urine sediment by light microscopyOrdered By: Deep Dela Cruz on 09-11-2024 Amorphous sediment LM Ql (Urine sed) 1+ [facility] Bilirubin Test strip Ql (U)O rdered By: Deep Dela Cruz on 09-11-2024 Bilirubin Ql (U) Negative Negative [facility] Ketones Test strip Ql (U)Ord ered By: Deep Dela Cruz on 09-11-2024 Ketones Ql (U) Negative Negative [facility] Microscopic analysis of urin e for red blood cells (RBC)Ordered By: Deep Dela Cruz on 09-11-2024 Microscopic analysis of urine for red blood cells (RBC) 0-5 SEEN /hpf 0-5 [facility] Mucus LM Ql (Urine sed)Order ed By: Deep Dela Cruz on 09-11-2024 Mucus Ql (Urine sed) 0 SEEN /hpf [facility] Nitrite Test strip Ql (U)Ord ered By: Deep Dela Cruz on 09-11-2024 Nitrite Ql (U) Positive High Negative [facility] Protein Test strip Ql (U)Ord ered By: Deep Dela Cruz on 09-11-2024 Protein Ql (U) 100 mg/dl High Negative [facility] Squamous epithelial cells de tection in urine sediment by light microscopyOrdered By: Deep Dela Cruz on 09-11-2024 Epithelial cells.squamous LM Ql (Urine sed) 0 SEEN /hpf 5-10 [facility] Triple phosphate crystals de tection in urine sediment by light microscopyOrdered By: Deep Dela Cruz on 09-11-2024 Triple phosphate crystals LM Ql (Urine sed) 1+ /hpf [facility] Urine clarityOrdered By: Janet Dela Cruz on 09-11-2024 Clarity (U) Turbid Clear [facility] Urine color determinationOrd ered By: Deep Dela Cruz on 09-11-2024 Color (U) Yellow Yellow [facility] Urine cultureOrdered By: Janet Dela Cruz on 09-11-2024 Bacteria identified Cx Nom (U) Morganella morganii sp morgani Abnormal [facility] Bacteria identified Cx Nom (U) Klebsiella pneumoniae sp pneum Abnormal [facility] Urine glucose detectionOrder ed By: Deep Dela Cruz on 09-11-2024 Glucose Ql (U) Normal mg/dl Normal [facility] Urine leukocyte esterase det ection by dipstickOrdered By: Deep Dela Cruz on 09-11-2024 Leukocyte esterase Test strip Ql (U) 500 /ul High Negative [facility] Urine pHOrdered By: Deep hayes on 09-11-2024 pH (U) 8.0 [pH] 5.0 - 8.0 [facility] Urine sediment bacteria coun t by microscopy (number/high power field)Ordered By: Deep Dela Cruz on 09-11-2024 Bacteria LM.HPF (Urine sed) [#/Area] 3 /[HPF] None Seen [facility] Urine specific gravity measu rementOrdered By: Deep Dela Cruz on 09-11-2024 Specific gravity (U) [Rel density] 1.010 1.002-1.030 [facility] Urine urobilinogen measureme ntOrdered By: Deep Dela Cruz on 09-11-2024 Urobilinogen Ql (U) Normal mg/dl Normal [facility] White blood cell countOrdere d By: Deep Dela Cruz on 09-11-2024 White blood cell count 10-25 SEEN /hpf 0-5 [facility] Anion gap in Serum or Plasma Ordered By: Deep Dela Cruz on 08-11-2024 Anion gap [Moles/Vol] 10 mmol/L 5-15 [facility] BUN/creatinine ratioOrdered By: Deep Dela Cruz on 08-11-2024 Urea nitrogen/Creatinine [Mass ratio] 29.2 mg/mg High 10-20 [facility] Basic Metabolic Profile (BMP )on 08-11-2024 BUN/CRE 29.2 RATIO High - [facility] Comment on above: Order Comment: 303.2 Performed By: #### L 300.4310, L300.3900 #### [facility] [address] [place], [address] Calcium [Mass/Vol] 8.6 mg/dL Normal 7.6-11.0 [facility] Comment on above: Order Comment: 303.2 Performed By: #### L 300.4310, L300.3900 #### [facility] [address] [place] [place], [address] Chloride [Moles/Vol] 103 mmol/L Normal 98-[address] [facility] Comment on above: Order Comment: 303.2 Performed By: #### L 300.4310, L300.3900 #### [facility] [address] [place], [address] CO2 [Moles/Vol] 24.2 mmol/L Normal 21.0-32.0 [facility] Comment on above: Order Comment: 303.2 Performed By: #### L 300.4310, L300.3900 #### [facility] [address] [place], [address] Creatinine [Mass/Vol] 0.47 mg/dL Low 0.70-1.20 [facility] Comment on above: Order Comment: 303.2 Performed By: #### L 300.4310, L300.3900 #### [facility] [address] [place], [address] GAP 10 Normal 5-15 [facility] Comment on above: Order Comment: 303.2 Performed By: #### L 300.4310, L300.3900 #### [facility] [address] [place], [address] GFR/1.73 sq M.predicted among non-blacks MDRD (S/P/Bld) [Vol rate/Area] 95 mL/min/{1.73_m2} Normal >60 [facility] Comment on above: Order Comment: 303.2 Result Comment: mL/m in/1.73m2 CKD-EPI Creatinine Equation (2020) Performed By: #### L 300.4310, L300.3900 #### [facility] [address] [place], [address] Glucose [Mass/Vol] 77 mg/dL Normal 70-99 [facility] Comment on above: Order Comment: 303.2 Performed By: #### L 300.4310, L300.3900 #### [facility] [address] [place], [address] Potassium [Moles/Vol] 3.7 mmol/L Normal 3.3-5.1 [facility] Comment on above: Order Comment: 303.2 Performed By: #### L 300.4310, L300.3900 #### [facility] [address] [place], [address] Sodium [Moles/Vol] 137 mmol/L Normal 133-145 [facility] Comment on above: Order Comment: 303.2 Performed By: #### L 300.4310, L300.3900 #### [facility] [address] [place], [address] Urea nitrogen [Mass/Vol] 14 mg/dL Normal 4-19 [facility] Comment on above: Order Comment: 303.2 Performed By: #### L 300.4310, L300.3900 #### [facility] [address] [place], [address] Carbon dioxide, total [Moles /volume] in Central venous bloodOrdered By: Deep Dela Cruz on 08-11-2024 CO2 [Moles/Vol] 24.2 mmol/L 21.0-32.0 [facility] Chloride assayOrdered By: Fried on 08-11-2024 Chloride [Moles/Vol] 103 mmol/L 98-[address] [facility] GFR/1.73 sq M.predicted radha g non-blacks MDRD (S/P/Bld) [Vol rate/Area]Ordered By: Deep Dela Cruz on 08-11-2024 Estimated GFR (MDRD) Non-Af Amer 95 >60 [facility] Comment on above: mL/min/1.73m2 CKD-EP I Creatinine Equation (2020) Glomerular filtration rate ( GFR) estimation/1.73 sq m using serum, plasma, or whole bOrdered By: Deep Dela Cruz on 08-11-2024 GFR/1.73 sq M.predicted among non-blacks MDRD (S/P/Bld) [Vol rate/Area] 95 mL/min/{1.73_m2} >60 [facility] Comment on above: mL/min/1.73m2 CKD-EP I Creatinine Equation (2020) Hemoglobin A1con 08-11-2024 HbA1c (Bld) [Mass fraction] 6.6 % Normal <=5.6 [facility] Comment on above: Order Comment: 303.2 Performed By: #### L 300.4310, L300.3900 #### [facility] [address] [place], [place], [address] Hemoglobin A1c percentageOrd ered By: Deep Dela Cruz on 08-11-2024 HbA1c (Bld) [Mass fraction] 6.6 % >5.7 [facility] Potassium (Unsp spec) [Mass/ Vol]Ordered By: Deep Dela Cruz on 08-11-2024 Potassium [Moles/Vol] 3.7 mmol/L 3.3-5.1 [facility] Potassium measurement (mass/ volume)Ordered By: Deep Dela Cruz on 08-11-2024 Potassium (Unsp spec) [Mass/Vol] 3.7 mmol/L 3.3-5.1 [facility] Serum creatinine measurement (mass/volume)Ordered By: Deep Dela Cruz on 08-11-2024 Creatinine [Mass/Vol] 0.47 mg/dL Low 0.70-1.20 [facility] Serum glucose measurement (m ass/volume)Ordered By: Deep Dela Cruz on 08-11-2024 Glucose [Mass/Vol] 77 mg/dL 70-99 [facility] Serum or plasma calcium jessi urement (mass/volume)Ordered By: Deep Dela Cruz on 08-11-2024 Calcium [Mass/Vol] 8.6 mg/dL 7.6-11.0 [facility] Serum or plasma urea nitroge n measurement (mass/volume)Ordered By: Deep Dela Cruz on 08-11-2024 Urea nitrogen [Mass/Vol] 14 mg/dL 4-19 [facility] Sodium levelOrdered By: Deep Dela Cruz on 08-11-2024 Sodium [Moles/Vol] 137 mmol/L 133-145 [facility] L503.7505on 08-08-2024 Natriuretic peptide B (Bld) [Mass/Vol] 1235 pg/mL Normal <=1800 [facility] Comment on above: Order Comment: 303.2 Result Comment: Hear t Failure Unlikely: < 300 pg/mL Heart Failure Likely < 50 Years: > 450 pg/mL 50-75 Years: > 900 pg/mL >75 Years: > 1800 pg/mL Performed By: #### L 300.4930, L300.3900 #### [facility] [address] [place], [address] Laboratory - Chemistry and C hemistry - challengeOrdered By: Deep Dela Cruz on 03-11-2025 Natriuretic peptide B (Bld) [Mass/Vol] 1235 pg/mL <1800 [facility] Comment on above: Heart Failure Unlike ly: < 300 pg/mLHeart Failure Likely< 50 Years: > 450 pg/mL50-75 Years: > 900 pg/mL>75 Years: > 1800 pg/mL CNOVon 08-03-2024 CNOV Normal [facility] CT HEAD WO IV CONTRASTon CT HEAD WO IV CONTRAST Patient Name: MIRIAM DE LA GARZA : 1940 [facility]#: [id number] Exam Date/Time: 08/02/2024 12:03 Procedure: CT HEAD [...] nontraumatic intracranial hemorrhage. Pt poor historian Normal [facility] CT Head WO contraston 2024 1. 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 2. No definite evidence of acute infarction, mass lesion, nor hemorrhage with moderate intracranial vascular calcification. Report Dictated on Electronically Signed By: Abhinav Loyola MD Electronically Signed Date/Time: 08/02/2024 6:14 PM EST [facility] Patient Name: MIRIAM SAEED : 1940 [...] unremarkable with cerumen right external auditory canal. [facility] Abhinav Loyola MD - 08/02/2024 Patient [...] Electronically Signed Date/Time: 08/02/2024 6:14 PM EST [facility] Head WO contrastOrdered B y: Abhinav Loyola on 08-02-2024 [facility] CiDR[facility] Work Phone: CNPNon 08-01-2024 CNPN Normal [facility] Comprehensive Metabolic Prof ilon 07-27-2024 Chloride [Moles/Vol] 102 mmol/L Normal 98-[address] [facility] Comment on above: Performed By: #### L 500.2500, L100.0100 #### [facility] [address] [place], [address] CO2 [Moles/Vol] 20.6 mmol/L Low 21.0-32.0 [facility] Comment on above: Performed By: #### L 500.2500, L100.0100 #### [facility] [address] [place], [address] GAP 13 Normal 5-15 [facility] Comment on above: Performed By: #### L 500.2500, L100.0100 #### [facility] [address] [place], [address] Potassium [Moles/Vol] 4.5 mmol/L Normal 3.5-5.1 [facility] Comment on above: Performed By: #### L 500.2500, L100.0100 #### [facility] [address] [place], [address] Calcium [Mass/Vol] 8.5 mg/dL Normal 7.6-11.0 [facility] Comment on above: Performed By: #### L 500.2500, L100.0100 #### [facility] [address] [place], [address] EST GFR - AA TNP Normal >60 [facility] Comment on above: Performed By: #### L 500.2500, L100.0100 #### [facility] [address] [place], [address] Sodium [Moles/Vol] 136 mmol/L Normal 136-145 [facility] Comment on above: Performed By: #### L 500.2500, L100.0100 #### [facility] [address] [place], [address] BUN/creatinine ratioOrdered By: Deep Dela Cruz on 07-26-2024 Urea nitrogen/Creatinine [Mass ratio] 33.7 mg/mg High 10-20 [facility] Comment on above: Previous reported re sult: 32.5 RATIOEdited by: ERWIN on 07/27/24:1224 AMENDED REPORT 07/27/24 1224 BUN/CRE previously reported as: 32.5 H RATIO Bilirubin, totalOrdered By: Deep Dela Cruz on 07-26-2024 Bilirubin [Mass/Vol] mg/dL 0.00-1.[address] [facility] Comment on above: Previous reported re sult: 0.18 mg/dLEdited by: ERWIN on 07/27/24:1224 AMENDED REPORT 07/27/24 1224 T BILI previously reported as: 0.18 mg/dL CBC-Complete Blood Cnt No Di ffon 07-26-2024 Erythrocyte distribution width (RBC) [Ratio] 16.2 % High 11.6-14.6 [facility] Comment on above: Performed By: #### L 500.2500, L100.0100 #### [facility] [address] [place], [address] Hematocrit (Bld) [Volume fraction] 36.6 % Low 37-47 [facility] Comment on above: Performed By: #### L 500.2500, L100.0100 #### [facility] [address] [place], [address] Hemoglobin (Bld) [Mass/Vol] 11.2 g/dL Low 12.0-15.0 [facility] Comment on above: Performed By: #### L 500.2500, L100.0100 #### [facility] [address] [place], [address] MCH (RBC) [Entitic mass] 27.7 pg Normal 27.0-32.0 [facility] Comment on above: Performed By: #### L 500.2500, L100.0100 #### [facility] [address] [place], [address] MCHC (RBC) [Mass/Vol] 30.6 g/dL Low 32-36 [facility] Comment on above: Performed By: #### L 500.2500, L100.0100 #### [facility] [address] [place], [address] MCV (RBC) [Entitic vol] 90.4 fL Normal 81-99 [facility] Comment on above: Performed By: #### L 500.2500, L100.0100 #### [facility] [address] [place], [address] Platelet mean volume (Bld) [Entitic vol] 11.1 fL Normal 6.2-12.0 [facility] Comment on above: Performed By: #### L 500.2500, L100.0100 #### [facility] [address] [place], [address] Platelets (Bld) [#/Vol] 205 10*3/uL Normal 150-450 [facility] Comment on above: Performed By: #### L 500.2500, L100.0100 #### [facility] [address] [place], [address] RBC (Bld) [#/Vol] 4.05 10*6/uL Low 4.2-5.4 [facility] Comment on above: Performed By: #### L 500.2500, L100.0100 #### [facility] [address] [place], [address] RDW SD 54.1 fl High 35.1-43.9 [facility] Comment on above: Performed By: #### L 500.2500, L100.0100 #### [facility] [address] [place], [address] WBC (Bld) [#/Vol] 5.4 10*3/uL Normal 4.4-11.0 [facility] Comment on above: Performed By: #### L 500.2500, L100.0100 #### [facility] [address] [place], [address] Creatinine [Moles/Vol]Ordere d By: Deep Dela Cruz on 07-26-2024 Creatinine [Mass/Vol] 0.5 mg/dL Low 0.6-1.0 [facility] Estimated glomerular filtrat ion rate (GFR) AmericanOrdered By: Deep Dela Cruz on 07-26-2024 Estimated GFR (MDRD) Amer TNP [facility] Comment on above: Test not performed GFR/1.73 sq M.predicted radha g non-blacks MDRD (S/P/Bld) [Vol rate/Area]Ordered By: Deep Dela Cruz on 07-26-2024 Estimated GFR (MDRD) Non-Af Amer 95 >60 [facility] Comment on above: mL/min/1.73m2 CKD-EP I Creatinine Equation (2020) Glomerular filtration rate ( GFR) estimation/1.73 sq m using serum, plasma, or whole bOrdered By: Deep Dela Cruz on 07-26-2024 GFR/1.73 sq M.predicted among non-blacks MDRD (S/P/Bld) [Vol rate/Area] 95 mL/min/{1.73_m2} >60 [facility] Comment on above: mL/min/1.73m2 CKD-EP I Creatinine Equation (2020) Hemoglobin A1con 07-26-2024 HbA1c (Bld) [Mass fraction] 6.4 % Normal <=5.6 [facility] Comment on above: Order Comment: 303.2 Performed By: #### L 500.2500, L100.0100 #### [facility] [address] [place], [place], [address] Laboratory - Chemistry and C hemistry - challengeOrdered By: Deep Dela Cruz on 07-26-2024 AST [Catalytic activity/Vol] 29 U/L <32 [facility] Potassium measurementOrdered By: Deep Dela Cruz on 07-26-2024 Potassium [Moles/Vol] 4.5 mmol/L 3.5-5.1 [facility] Serum anion gap measurementO rdered By: Deep Dela Cruz on 07-26-2024 Anion gap [Moles/Vol] 13 mmol/L 5-15 [facility] Serum globulin measurementOr dered By: Deep Dela Cruz on 07-26-2024 Globulin (S) [Mass/Vol] 3.5 g/dL 2.2-4.2 [facility] Comment on above: Previous reported re sult: 3.2 g/dLEdited by: ERWIN on 07/27/24:1224 AMENDED REPORT 07/27/24 1224 GLOB previously reported as: 3.2 g/dL Serum glucose measurement (m ass/volume)Ordered By: Deep Dela Cruz on 07-26-2024 Glucose [Mass/Vol] 68 mg/dL Low 70-99 [facility] Comment on above: Previous reported re sult: 74 mg/dLEdited by: ERWIN on 07/27/24:1224 AMENDED REPORT 07/27/24 1224 GLU previously reported as: 74 mg/dL Serum or plasma alanine wilson otransferase (ALT) measurementOrdered By: Deep Dela Cruz on 07-26-2024 ALT [Catalytic activity/Vol] 9 U/L <35 [facility] Comment on above: Previous reported re sult: 10 U/LEdited by: AUTOINS on 07/27/24:1224 AMENDED REPORT 07/27/24 1224 ALT previously reported as: 10 U/L Serum or plasma albumin jessi urement (mass/volume)Ordered By: Deep Dela Cruz on 07-26-2024 Albumin [Mass/Vol] 2.3 g/dL Low 3.4-4.8 [facility] Serum or plasma albumin/glob ulin mass ratioOrdered By: Deep Dela Cruz on 07-26-2024 Albumin/Globulin [Mass ratio] 0.7 {ratio} Low 0.9-2.4 [facility] Serum or plasma alkaline jero sphatase measurementOrdered By: Deep Dela Cruz on 07-26-2024 ALP [Catalytic activity/Vol] 156 U/L High 35-104 [facility] Comment on above: Previous reported re sult: 153 U/LEdited by: AUTOINS on 07/27/24:1224 AMENDED REPORT 07/27/24 1224 ALK P previously reported as: 153 H U/L Serum or plasma calcium jessi urement (mass/volume)Ordered By: Deep Dela Cruz on 07-26-2024 Calcium [Mass/Vol] 8.5 mg/dL 7.6-11.0 [facility] Serum or plasma carbon dioxi de measurement (moles/volume)Ordered By: Deep Dela Cruz on 07-26-2024 CO2 [Moles/Vol] 20.6 mmol/L Low 21.0-32.0 [facility] Serum or plasma chloride michelle surement (moles/volume)Ordered By: Deep Dela Cruz on 07-26-2024 Chloride [Moles/Vol] 102 mmol/L 98-[address] [facility] Serum or plasma creatinine m easurement (moles/volume)Ordered By: Deep Dela Cruz on 07-26-2024 Creatinine [Moles/Vol] 0.5 mg/dL Low 0.6-1.0 [facility] Serum or plasma urea nitroge n measurement (mass/volume)Ordered By: Deep Dela Cruz on 07-26-2024 Urea nitrogen [Mass/Vol] 17 mg/dL 4-19 [facility] Comment on above: Previous reported re sult: 16 mg/dLEdited by: AUTOINS on 07/27/24:1224 AMENDED REPORT 07/27/24 1224 BUN previously reported as: 16 mg/dL Sodium levelOrdered By: Deep Dela Cruz on 07-26-2024 Sodium [Moles/Vol] 136 mmol/L 136-145 [facility] Total proteinOrdered By: Janet Dela Cruz on 07-26-2024 Protein [Mass/Vol] 5.8 g/dL Low 5.9-8.4 [facility] Comment on above: Previous reported re sult: 5.5 g/dLEdited by: AUTOINS on 07/27/24:1224 AMENDED REPORT 07/27/24 1224 T PROT previously reported as: 5.5 L g/dL Erythrocyte distribution wid th (RBC) [Ratio]Ordered By: Deep Dela Cruz on 07-25-2024 Erythrocyte distribution width (RBC) [Entitic vol] 54.1 fL High 35.1-43.9 [facility] Erythrocyte distribution wid th ratioOrdered By: Deep Dela Cruz on 07-25-2024 Erythrocyte distribution width (RBC) [Ratio] 16.2 % High 11.6-14.6 [facility] Erythrocyte distribution wid th standard deviationOrdered By: Deep Dela Cruz on 07-25-2024 Erythrocyte distribution width (RBC) [Ratio] 54.1 fl High 35.1-43.9 [facility] Hematocrit Auto (Bld) [Volum e fraction]Ordered By: Deep Dela Cruz on 07-25-2024 Hematocrit (Bld) [Volume fraction] 36.6 % Low 37-47 [facility] Hemoglobin A1c percentageOrd ered By: Deep Dela Cruz on 07-25-2024 HbA1c (Bld) [Mass fraction] 6.4 % >5.7 [facility] Hemoglobin measurementOrdere d By: Deep Dela Cruz on 07-25-2024 Hemoglobin (Bld) [Mass/Vol] 11.2 g/dL Low 12.0-15.0 [facility] MCV (mean corpuscular volume ) determinationOrdered By: Deep Dela Cruz on 02-25-2025 MCV (RBC) [Entitic vol] 90.4 fL 81-99 [facility] Mean corpuscular hemoglobin (MCH) determinationOrdered By: Deep Dela Cruz on 07-25-2024 MCH (RBC) [Entitic mass] 27.7 pg 27.0-32.0 [facility] Mean corpuscular hemoglobin concentration (MCHC) determinationOrdered By: Deep Dela Cruz on 07-25-2024 MCHC (RBC) [Mass/Vol] 30.6 g/dL Low 32-36 [facility] Mean platelet volume determi nationOrdered By: Deep Dela Cruz on 07-25-2024 Platelet mean volume (Bld) [Entitic vol] 11.1 fL 6.2-12.0 [facility] Platelet countOrdered By: Fried on 07-25-2024 Platelets (Bld) [#/Vol] 205 10*3/uL 150-450 [facility] RBC Auto (Bld) [#/Vol]Ordere d By: Deep Dela Cruz on 07-25-2024 RBC (Bld) [#/Vol] 4.05 10*6/uL Low 4.2-5.4 [facility] White blood cell (WBC) count Ordered By: Deep Dela Cruz on 07-25-2024 WBC (Bld) [#/Vol] 5.4 10*3/uL 4.4-11.0 [facility] Basic Metabolic Profile (BMP )on 07-10-2024 BUN/CRE 43.1 RATIO High 10-20 [facility] Comment on above: Order Comment: 303.2 Performed By: #### L 500.2500, L100.0100 #### [facility] [address] [place], [address] CA,Total 8.6 mg/dL Normal 8.5-10.1 [facility] Comment on above: Order Comment: 303.2 Performed By: #### L 500.2500, L100.0100 #### [facility] [address] [place], [address] Chloride [Moles/Vol] 103 mmol/L Normal 98-[address] [facility] Comment on above: Order Comment: 303.2 Performed By: #### L 500.2500, L100.0100 #### [facility] [address] [place], [address] CO2 [Moles/Vol] 28.0 mmol/L Normal 21.0-32.0 [facility] Comment on above: Order Comment: 303.2 Performed By: #### L 500.2500, L100.0100 #### [facility] [address] [place], [address] Creatinine [Mass/Vol] 0.44 mg/dL Low 0.55-1.02 [facility] Comment on above: Order Comment: 303.2 Result Comment: The validity of the calculated GFR GFRAA in patients over 70 years has not been determined. Clinical correlation is essential. Performed By: #### L 500.2500, L100.0100 #### [facility] [address] [place], [address] EST GFR - AA 175 mL/min Normal >60 [facility] Comment on above: Order Comment: 303.2 Result Comment: Afri can Tristanian GFR Calc Performed By: #### L 500.2500, L100.0100 #### [facility] [address] [place], [address] GAP 6 Normal 5-15 [facility] Comment on above: Order Comment: 303.2 Performed By: #### L 500.2500, L100.0100 #### [facility] [address] [place], [address] GFR/1.73 sq M.predicted among non-blacks MDRD (S/P/Bld) [Vol rate/Area] 145 mL/min/{1.73_m2} Normal >60 [facility] Comment on above: Order Comment: 303.2 Result Comment: Non- GFR Calc Performed By: #### L 500.2500, L100.0100 #### [facility] [address] [place], [address] Glucose [Mass/Vol] 103 mg/dL Normal 74-106 [facility] Comment on above: Order Comment: 303.2 Result Comment: Fast ing Glucose result from 100 to 125 mg/dL suggests IMPAIRED HOMEOSTASIS per A.D.A. criteria. Performed By: #### L 500.2500, L100.0100 #### [facility] [address] [place], [address] Potassium [Moles/Vol] 3.7 mmol/L Normal 3.5-5.1 [facility] [facility] Comment on above: Order Comment: 303.2 Performed By: #### L 500.2500, L100.0100 #### [facility] [address] [place], [address] Sodium [Moles/Vol] 137 mmol/L Normal 136-145 [facility] Comment on above: Order Comment: 303.2 Performed By: #### L 500.2500, L100.0100 #### [facility] [address] [place], [address] Urea nitrogen [Mass/Vol] 19 mg/dL High 7-18 [facility] Comment on above: Order Comment: 303.2 Performed By: #### L 500.2500, L100.0100 #### [facility] [address] [place], [address] Blood urea nitrogen (BUN)/cr eatinine ratioOrdered By: Deep Dela Cruz on 07-10-2024 Urea nitrogen/Creatinine [Mass ratio] 43.1 mg/mg High 10-20 [facility] CBC-Complete Blood Cnt No Di ffon 07-10-2024 Erythrocyte distribution width (RBC) [Ratio] 14.9 % High 11.6-14.6 [facility] Comment on above: Order Comment: 303.2 Performed By: #### L 500.2500, L100.0100 #### [facility] [address] [place], [address] Hematocrit (Bld) [Volume fraction] 31.3 % Low 37-47 [facility] Comment on above: Order Comment: 303.2 Performed By: #### L 500.2500, L100.0100 #### [facility] [address] [place], [address] Hemoglobin (Bld) [Mass/Vol] 10.0 g/dL Low 12.0-15.0 [facility] Comment on above: Order Comment: 303.2 Performed By: #### L 500.2500, L100.0100 #### [facility] [address] [place], [address] MCH (RBC) [Entitic mass] 28.7 pg Normal 27.0-32.0 [facility] Comment on above: Order Comment: 303.2 Performed By: #### L 500.2500, L100.0100 #### [facility] [address] [place], [address] MCHC (RBC) [Mass/Vol] 31.9 g/dL Low 32-36 [facility] Comment on above: Order Comment: 303.2 Performed By: #### L 500.2500, L100.0100 #### [facility] [address] [place], [address] MCV (RBC) [Entitic vol] 89.9 fL Normal 81-99 [facility] Comment on above: Order Comment: 303.2 Performed By: #### L 500.2500, L100.0100 #### [facility] [address] [place], [address] Platelet mean volume (Bld) [Entitic vol] 10.7 fL Normal 6.2-12.0 [facility] Comment on above: Order Comment: 303.2 Performed By: #### L 500.2500, L100.0100 #### [facility] [address] [place], [address] Platelets (Bld) [#/Vol] 397 10*3/uL Normal 150-450 [facility] Comment on above: Order Comment: 303.2 Performed By: #### L 500.2500, L100.0100 #### [facility] [address] [place], [address] RBC (Bld) [#/Vol] 3.48 10*6/uL Low 4.2-5.4 [facility] Comment on above: Order Comment: 303.2 Performed By: #### L 500.2500, L100.0100 #### [facility] [address] [place], [address] RDW SD 49.5 fl High 35.1-43.9 [facility] Comment on above: Order Comment: 303.2 Performed By: #### L 500.2500, L100.0100 #### [facility] [address] [place], [address] WBC (Bld) [#/Vol] 18.3 10*3/uL High 4.4-11.0 [facility] Comment on above: Order Comment: 303.2 Performed By: #### L 500.2500, L100.0100 #### [facility] [address] [place], [address] Carbon dioxide measurementOr dered By: Deep Dela Cruz on 07-10-2024 CO2 [Moles/Vol] 28.0 mmol/L 21.0-32.0 [facility] Chloride measurementOrdered By: Deep Dela Cruz on 07-10-2024 Chloride [Moles/Vol] 103 mmol/L 98-[address] [facility] Erythrocyte distribution wid th (RBC) [Ratio]Ordered By: Deep Dela Cruz on 07-10-2024 Erythrocyte distribution width (RBC) [Entitic vol] 49.5 fL High 35.1-43.9 [facility] Erythrocyte distribution wid th ratioOrdered By: Deep Dela Cruz on 07-10-2024 Erythrocyte distribution width (RBC) [Ratio] 14.9 % High 11.6-14.6 [facility] Erythrocyte distribution wid th standard deviationOrdered By: Deep Dela Cruz on 07-10-2024 Erythrocyte distribution width (RBC) [Ratio] 49.5 fl High 35.1-43.9 [facility] Estimated glomerular filtrat ion rate (GFR) AmericanOrdered By: Deep Dela Cruz on 07-10-2024 Estimated GFR (MDRD) Amer 175 mL/min >60 [facility] Comment on above: GFR Calc Glomerular filtration rate ( GFR) estimationOrdered By: Deep Dela Cruz on 07-10-2024 Estimated GFR (MDRD) Non-Af Amer 145 mL/min >60 [facility] Comment on above: Non- GFR Calc GFR/1.73 sq M.predicted among non-blacks MDRD (S/P/Bld) [Vol rate/Area] 145 mL/min/{1.73_m2} >60 [facility] Comment on above: Non- GFR Calc Glucose measurementOrdered B y: Deep Dela Cruz on 07-10-2024 Glucose [Mass/Vol] 103 mg/dL 74-106 [facility] Comment on above: Fasting Glucose resu lt from 100 to 125 mg/dL suggests IMPAIRED HOMEOSTASIS per A.D.A. criteria. Hematocrit Auto (Bld) [Volum e fraction]Ordered By: Deep Dela Cruz on 07-10-2024 Hematocrit (Bld) [Volume fraction] 31.3 % Low 37-47 [facility] Hemoglobin measurementOrdere d By: Deep Dela Cruz on 07-10-2024 Hemoglobin (Bld) [Mass/Vol] 10.0 g/dL Low 12.0-15.0 [facility] MCV (mean corpuscular volume ) determinationOrdered By: Deep Dela Cruz on 07-10-2024 MCV (RBC) [Entitic vol] 89.9 fL 81-99 [facility] Mean corpuscular hemoglobin (MCH) determinationOrdered By: Deep Dela Cruz on 07-10-2024 MCH (RBC) [Entitic mass] 28.7 pg 27.0-32.0 [facility] Mean corpuscular hemoglobin concentration (MCHC) determinationOrdered By: Deep Dela Cruz on 07-10-2024 MCHC (RBC) [Mass/Vol] 31.9 g/dL Low 32-36 [facility] Mean platelet volume determi nationOrdered By: Deep Dela Cruz on 07-10-2024 Platelet mean volume (Bld) [Entitic vol] 10.7 fL 6.2-12.0 [facility] Platelet countOrdered By: Fried on 07-10-2024 Platelets (Bld) [#/Vol] 397 10*3/uL 150-450 [facility] Potassium measurementOrdered By: Deep Dela Cruz on 07-10-2024 Potassium [Moles/Vol] 3.7 mmol/L 3.5-5.1 [facility] RBC Auto (Bld) [#/Vol]Ordere d By: Deep Dela Cruz on 07-10-2024 RBC (Bld) [#/Vol] 3.48 10*6/uL Low 4.2-5.4 [facility] Serum anion gap measurementO rdered By: Deep Dela Cruz on 07-10-2024 Anion gap [Moles/Vol] 6 mmol/L 5-15 [facility] Serum or plasma calcium jessi urement (mass/volume)Ordered By: Deep Dela Cruz on 07-10-2024 Calcium [Mass/Vol] 8.6 mg/dL 8.5-10.1 [facility] Serum or plasma creatinine m easurement (mass/volume)Ordered By: Deep Dela Cruz on 07-10-2024 Creatinine [Mass/Vol] 0.44 mg/dL Low 0.55-1.02 [facility] Comment on above: The validity of the calculated GFR & GFRAA in patients over 70 years has not been determined. Clinical correlation is essential. Serum or plasma urea nitroge n measurement (mass/volume)Ordered By: Deep Dela Cruz on 07-10-2024 Urea nitrogen [Mass/Vol] 19 mg/dL High 7-18 [facility] Sodium levelOrdered By: Deep Dela Cruz on 07-10-2024 Sodium [Moles/Vol] 137 mmol/L 136-145 [facility] White blood cell (WBC) count Ordered By: Deep Dela Cruz on 07-10-2024 WBC (Bld) [#/Vol] 18.3 10*3/uL High 4.4-11.0 [facility] Absolute lymphocyte countOrd ered By: Deep Dela Cruz on 06-20-2024 Lymphocytes Auto (Unsp spec) [#/Vol] 1.17 10*3/uL 0.83-4.51 [facility] Absolute neutrophil countOrd ered By: Deep Dela Cruz on 06-20-2024 Neutrophils (Bld) [#/Vol] 5.5 10*3/uL 2.0-7.7 [facility] Albumin to globulin ratioOrd ered By: Deep Dela Cruz on 06-20-2024 Albumin/Globulin [Mass ratio] 0.5 {ratio} Low 0.9-2.4 [facility] Automated lymphocyte count a s percentage of total leukocytesOrdered By: Deep Dela Cruz on 06-20-2024 Lymphocytes/100 WBC Auto (Unsp spec) 14.7 % Low 19-41 [facility] Basophil percentageOrdered B y: Deep Dela Cruz on 06-20-2024 Basophils/100 WBC (Bld) 1.1 % High 0-1 [facility] Bilirubin, totalOrdered By: Deep Dela Cruz on 06-20-2024 Bilirubin [Mass/Vol] 0.40 mg/dL 0.20-1.[address] [facility] Comment on above: For patients on eltr ombopag therapy, use of Dimension [place] TBIL is not recommended. Blood urea nitrogen (BUN)/cr eatinine ratioOrdered By: Deep Dela Cruz on 06-20-2024 Urea nitrogen/Creatinine [Mass ratio] 30.9 mg/mg High 10-20 [facility] CBC W/Diff, Automatedon 06-01 Absolute Lymph 1.17 X10 3/uL Normal 0.83-4.51 [facility] Comment on above: Order Comment: 303.2 Performed By: #### L 500.2500, L100.0100 #### [facility] [address] [place], [address] Absolute Neut 5.5 X10 3/uL Normal 2.0-7.7 [facility] Comment on above: Order Comment: 303.2 Performed By: #### L 500.2500, L100.0100 #### [facility] [address] [place], [address] Basophils/100 WBC (Bld) 1.1 % High 0-1 [facility] Comment on above: Order Comment: 303.2 Performed By: #### L 500.2500, L100.0100 #### [facility] [address] [place], [address] Eosinophils/100 WBC (Bld) 3.0 % Normal 0-5 [facility] Comment on above: Order Comment: 303.2 Performed By: #### L 500.2500, L100.0100 #### [facility] [address] [place], [address] Erythrocyte distribution width (RBC) [Ratio] 15.1 % High 11.6-14.6 [facility] Comment on above: Order Comment: 303.2 Performed By: #### L 500.2500, L100.0100 #### [facility] [address] [place], [address] Hematocrit (Bld) [Volume fraction] 33.9 % Low 37-47 [facility] Comment on above: Order Comment: 303.2 Performed By: #### L 500.2500, L100.0100 #### [facility] [address] [place], [address] Hemoglobin (Bld) [Mass/Vol] 10.5 g/dL Low 12.0-15.0 [facility] Comment on above: Order Comment: 303.2 Performed By: #### L 500.2500, L100.0100 #### [facility] [address] [place], [address] IG% 0.500 Normal 0.0-0.9 [facility] Comment on above: Order Comment: 303.2 Result Comment: IG% - Immature Granulocytes (promyelocytes, myelocytes and metamyelocytes) > 1% indicates that a LEFT SHIFT is Present. Performed By: #### L 500.2500, L100.0100 #### [facility] [address] [place], [address] Lymphocytes/100 WBC (Bld) 14.7 % Low 19-41 [facility] Comment on above: Order Comment: 303.2 Performed By: #### L 500.2500, L100.0100 #### [facility] [address] [place] [place], [address] MCH (RBC) [Entitic mass] 28.8 pg Normal 27.0-32.0 [facility] Comment on above: Order Comment: 303.2 Performed By: #### L 500.2500, L100.0100 #### [facility] [address] [place], [address] MCHC (RBC) [Mass/Vol] 31.0 g/dL Low 32-36 [facility] Comment on above: Order Comment: 303.2 Performed By: #### L 500.2500, L100.0100 #### [facility] [address] [place], [address] MCV (RBC) [Entitic vol] 93.1 fL Normal 81-99 [facility] Comment on above: Order Comment: 303.2 Performed By: #### L 500.2500, L100.0100 #### [facility] [address] [place], [address] Monocytes/100 WBC (Bld) 11.2 % High 0-10 [facility] Comment on above: Order Comment: 303.2 Performed By: #### L 500.2500, L100.0100 #### [facility] [address] [place] [place], [address] Neutrophils/100 WBC (Bld) 69.5 % Normal 47-70 [facility] Comment on above: Order Comment: 303.2 Performed By: #### L 500.2500, L100.0100 #### [facility] [address] [place], [address] Nucleated RBC (Bld) [#/Vol] 0 10*3/uL Normal 0-5 [facility] Comment on above: Order Comment: 303.2 Performed By: #### L 500.2500, L100.0100 #### [facility] [address] [place], [address] Platelet mean volume (Bld) [Entitic vol] 10.3 fL Normal 6.2-12.0 [facility] Comment on above: Order Comment: 303.2 Performed By: #### L 500.2500, L100.0100 #### [facility] [address] [place], [address] Platelets (Bld) [#/Vol] 299 10*3/uL Normal 150-450 [facility] Comment on above: Order Comment: 303.2 Performed By: #### L 500.2500, L100.0100 #### [facility] [address] [place], [address] RBC (Bld) [#/Vol] 3.64 10*6/uL Low 4.2-5.4 [facility] Comment on above: Order Comment: 303.2 Performed By: #### L 500.2500, L100.0100 #### [facility] [address] [place], [address] RDW SD 51.5 fl High 35.1-43.9 [facility] Comment on above: Order Comment: 303.2 Performed By: #### L 500.2500, L100.0100 #### [facility] [address] [place], [address] WBC (Bld) [#/Vol] 8.0 10*3/uL Normal 4.4-11.0 [facility] Comment on above: Order Comment: 303.2 Performed By: #### L 500.2500, L100.0100 #### [facility] [address] [place], [address] CDIFF (PCR)on 06-20-2024 CDIFF Pending [phone] [id number] Presumptive Negative *for epidemiolologic???use C. Diff PCR Negative- No toxigenic C. Diff Detected Normal [facility] Comment on above: Performed By: #### L 500.2500, L100.0100 #### [facility] [address] [place], [address] Carbon dioxide measurementOr dered By: Deep Dela Cruz on 06-20-2024 CO2 [Moles/Vol] 24.0 mmol/L 21.0-32.0 [facility] Chloride measurementOrdered By: Deep Dela Cruz on 06-20-2024 Chloride [Moles/Vol] 108 mmol/L High 98-[address] [facility] Comprehensive Metabolic Prof ilon 06-20-2024 Albumin [Mass/Vol] 1.9 g/dL Low 3.2-5.0 [facility] Comment on above: Order Comment: 303.2 Performed By: #### L 500.2500, L100.0100 #### [facility] [address] [place], [address] Albumin/Globulin [Mass ratio] 0.5 {ratio} Low 0.9-2.4 [facility] Comment on above: Order Comment: 303.2 Performed By: #### L 500.2500, L100.0100 #### [facility] [address] [place], [address] ALK P 148 U/L High 45-117 [facility] Comment on above: Order Comment: 303.2 Performed By: #### L 500.2500, L100.0100 #### [facility] [address] [place], [address] ALT [Catalytic activity/Vol] 10 U/L Low 13-56 [facility] Comment on above: Order Comment: 303.2 Performed By: #### L 500.2500, L100.0100 #### [facility] [address] [place], [address] AST [Catalytic activity/Vol] 17 U/L Normal 15-37 [facility] Comment on above: Order Comment: 303.2 Performed By: #### L 500.2500, L100.0100 #### [facility] [address] [place], [address] Bilirubin [Mass/Vol] 0.40 mg/dL Normal 0.20-1.[address] [facility] Comment on above: Order Comment: 303.2 Result Comment: For patients on eltrombopag therapy, use of Dimension [place] TBIL is not recommended. Performed By: #### L 500.2500, L100.0100 #### [facility] [address] [place], [address] BUN/CRE 30.9 RATIO High 10-20 [facility] Comment on above: Order Comment: 303.2 Performed By: #### L 500.2500, L100.0100 #### [facility] [address] [place], [address] CA,Total 8.7 mg/dL Normal 8.5-10.1 [facility] Comment on above: Order Comment: 303.2 Performed By: #### L 500.2500, L100.0100 #### [facility] [address] [place], [address] Chloride [Moles/Vol] 108 mmol/L High 98-[address] [facility] Comment on above: Order Comment: 303.2 Performed By: #### L 500.2500, L100.0100 #### [facility] [address] [place], [address] CO2 [Moles/Vol] 24.0 mmol/L Normal 21.0-32.0 [facility] Comment on above: Order Comment: 303.2 Performed By: #### L 500.2500, L100.0100 #### [facility] [address] [place], [address] Creatinine [Mass/Vol] 0.42 mg/dL Low 0.55-1.02 [facility] Comment on above: Order Comment: 303.2 Result Comment: The validity of the calculated GFR GFRAA in patients over 70 years has not been determined. Clinical correlation is essential. Performed By: #### L 500.2500, L100.0100 #### [facility] [address] [place], [address] EST GFR - AA 185 mL/min Normal >60 [facility] Comment on above: Order Comment: 303.2 Result Comment: Afri can Tristanian GFR Calc Performed By: #### L 500.2500, L100.0100 #### [facility] [address] [place], [address] GAP 8 Normal 5-15 [facility] Comment on above: Order Comment: 303.2 Performed By: #### L 500.2500, L100.0100 #### [facility] [address] [place], [address] GFR/1.73 sq M.predicted among non-blacks MDRD (S/P/Bld) [Vol rate/Area] 153 mL/min/{1.73_m2} Normal >60 [facility] Comment on above: Order Comment: 303.2 Result Comment: Non- GFR Calc Performed By: #### L 500.2500, L100.0100 #### [facility] [address] [place], [address] Globulin (S) [Mass/Vol] 4.1 g/dL Normal 2.2-4.2 [facility] Comment on above: Order Comment: 303.2 Performed By: #### L 500.2500, L100.0100 #### [facility] [address] [place], [address] Glucose [Mass/Vol] 104 mg/dL Normal 74-106 [facility] Comment on above: Order Comment: 303.2 Result Comment: Fast ing Glucose result from 100 to 125 mg/dL suggests IMPAIRED HOMEOSTASIS per A.D.A. criteria. Performed By: #### L 500.2500, L100.0100 #### [facility] [address] [place], [address] Potassium [Moles/Vol] 3.8 mmol/L Normal 3.5-5.1 [facility] Comment on above: Order Comment: 303.2 Performed By: #### L 500.2500, L100.0100 #### [facility] [address] [place], [address] Sodium [Moles/Vol] 139 mmol/L Normal 136-145 [facility] Comment on above: Order Comment: 303.2 Performed By: #### L 500.2500, L100.0100 #### [facility] [address] [place], [address] T PROT 6.0 g/dL Low 6.4-8.2 [facility] Comment on above: Order Comment: 303.2 Performed By: #### L 500.2500, L100.0100 #### [facility] [address] [place], [address] Urea nitrogen [Mass/Vol] 13 mg/dL Normal 7-18 [facility] Comment on above: Order Comment: 303.2 Performed By: #### L 500.2500, L100.0100 #### [facility] [address] [place], [address] Eosinophil percentageOrdered By: Deep Dela Cruz on 06-20-2024 Eosinophils/100 WBC (Bld) 3.0 % 0-5 [facility] Erythrocyte distribution wid th (RBC) [Ratio]Ordered By: Deep Dela Cruz on 06-20-2024 Erythrocyte distribution width (RBC) [Entitic vol] 51.5 fL High 35.1-43.9 [facility] Erythrocyte distribution wid th ratioOrdered By: Deep Dela Cruz on 06-20-2024 Erythrocyte distribution width (RBC) [Ratio] 15.1 % High 11.6-14.6 [facility] Erythrocyte distribution wid th standard deviationOrdered By: Deep Dela Cruz on 06-20-2024 Erythrocyte distribution width (RBC) [Ratio] 51.5 fl High 35.1-43.9 [facility] Estimated glomerular filtrat ion rate (GFR) AmericanOrdered By: Deep Dela Cruz on 06-20-2024 Estimated GFR (MDRD) Amer 185 mL/min >60 [facility] Comment on above: GFR Calc Glomerular filtration rate ( GFR) estimationOrdered By: Deep Dela Cruz on 06-20-2024 Estimated GFR (MDRD) Non-Af Amer 153 mL/min >60 [facility] Comment on above: Non- GFR Calc GFR/1.73 sq M.predicted among non-blacks MDRD (S/P/Bld) [Vol rate/Area] 153 mL/min/{1.73_m2} >60 [facility] Comment on above: Non- GFR Calc Glucose measurementOrdered B y: Deep Dela Cruz on 06-20-2024 Glucose [Mass/Vol] 104 mg/dL 74-106 [facility] Comment on above: Fasting Glucose resu lt from 100 to 125 mg/dL suggests IMPAIRED HOMEOSTASIS per A.D.A. criteria. Hematocrit Auto (Bld) [Volum e fraction]Ordered By: Deep Dela Cruz on 06-20-2024 Hematocrit (Bld) [Volume fraction] 33.9 % Low 37-47 [facility] Hemoglobin measurementOrdere d By: Deep Dela Cruz on 06-20-2024 Hemoglobin (Bld) [Mass/Vol] 10.5 g/dL Low 12.0-15.0 [facility] Immature granulocytes/100 WB C Auto (Bld)Ordered By: Deep Dela Cruz on 06-20-2024 Immature granulocytes/100 WBC (Bld) 0.500 % 0.0-0.9 [facility] Comment on above: IG% - Immature Granu locytes (promyelocytes, myelocytes and metamyelocytes) > 1% indicates that a LEFT SHIFT is Present. Laboratory - Chemistry and C hemistry - challengeOrdered By: Deep Dela Cruz on 06-20-2024 AST [Catalytic activity/Vol] 17 U/L 15-37 [facility] Lymphocytes Auto (Unsp spec) [#/Vol]Ordered By: Deep Dela Cruz on 06-20-2024 Lymphocytes (Bld) [#/Vol] 1.17 10*3/uL 0.83-4.51 [facility] Lymphocytes/100 WBC Auto (Un sp spec)Ordered By: Deep Dela Cruz on 06-20-2024 Lymphocytes/100 WBC (Bld) 14.7 % Low 19-41 [facility] MCV (mean corpuscular volume ) determinationOrdered By: Deep Dela Cruz on 06-20-2024 MCV (RBC) [Entitic vol] 93.1 fL 81-99 [facility] Mean corpuscular hemoglobin (MCH) determinationOrdered By: Deep Dela Cruz on 06-20-2024 MCH (RBC) [Entitic mass] 28.8 pg 27.0-32.0 [facility] Mean corpuscular hemoglobin concentration (MCHC) determinationOrdered By: Deep Dela Cruz on 06-20-2024 MCHC (RBC) [Mass/Vol] 31.0 g/dL Low 32-36 [facility] Mean platelet volume determi nationOrdered By: Deep Dela Cruz on 06-20-2024 Platelet mean volume (Bld) [Entitic vol] 10.3 fL 6.2-12.0 [facility] Monocyte percentageOrdered B y: Deep Dela Cruz on 06-20-2024 Monocytes/100 WBC (Bld) 11.2 % High 0-10 [facility] Neutrophil percentageOrdered By: Deep Dela Cruz on 06-20-2024 Neutrophils/100 WBC (Bld) 69.5 % 47-70 [facility] Nucleated red blood cell per centageOrdered By: Deep Dela Cruz on 06-20-2024 Nucleated RBC/100 WBC (Bld) [Ratio] 0 % 0-5 [facility] Platelet countOrdered By: Fried on 06-20-2024 Platelets (Bld) [#/Vol] 299 10*3/uL 150-450 [facility] Potassium measurementOrdered By: Deep Dela Cruz on 06-20-2024 Potassium [Moles/Vol] 3.8 mmol/L 3.5-5.1 [facility] RBC Auto (Bld) [#/Vol]Ordere d By: Deep Dela Cruz on 06-20-2024 RBC (Bld) [#/Vol] 3.64 10*6/uL Low 4.2-5.4 [facility] Serum anion gap measurementO rdered By: Deep Dela Cruz on 06-20-2024 Anion gap [Moles/Vol] 8 mmol/L 5-15 [facility] Serum globulin measurementOr dered By: Deep Dela Cruz on 06-20-2024 Globulin (S) [Mass/Vol] 4.1 g/dL 2.2-4.2 [facility] Serum or plasma alanine wilson otransferase (ALT) measurementOrdered By: Deep Dela Cruz on 06-20-2024 ALT [Catalytic activity/Vol] 10 U/L Low 13-56 [facility] Serum or plasma albumin jessi urement (mass/volume)Ordered By: Deep Dela Cruz on 06-20-2024 Albumin [Mass/Vol] 1.9 g/dL Low 3.2-5.0 [facility] Serum or plasma alkaline jero sphatase measurementOrdered By: Deep Dela Cruz on 06-20-2024 ALP [Catalytic activity/Vol] 148 U/L High 45-117 [facility] Serum or plasma calcium jessi urement (mass/volume)Ordered By: Deep Dela Cruz on 06-20-2024 Calcium [Mass/Vol] 8.7 mg/dL 8.5-10.1 [facility] Serum or plasma creatinine m easurement (mass/volume)Ordered By: Deep Dela Cruz on 06-20-2024 Creatinine [Mass/Vol] 0.42 mg/dL Low 0.55-1.02 [facility] Comment on above: The validity of the calculated GFR & GFRAA in patients over 70 years has not been determined. Clinical correlation is essential. Serum or plasma urea nitroge n measurement (mass/volume)Ordered By: Deep Dela Cruz on 06-20-2024 Urea nitrogen [Mass/Vol] 13 mg/dL 7-18 [facility] Sodium levelOrdered By: Deep Dela Cruz on 06-20-2024 Sodium [Moles/Vol] 139 mmol/L 136-145 [facility] Total proteinOrdered By: Janet Dela Cruz on 06-20-2024 Protein [Mass/Vol] 6.0 g/dL Low 6.4-8.2 [facility] White blood cell (WBC) count Ordered By: Deep Dela Cruz on 06-20-2024 WBC (Bld) [#/Vol] 8.0 10*3/uL 4.4-11.0 [facility] C. difficile DNA ANKIT+probe Q l (Unsp spec)Ordered By: Deep Dela Cruz on 06-19-2024 Clostridioides difficile (PCR) [facility] Clostridium difficile detect ion by polymerase chain reactionOrdered By: Deep Dela Cruz on 06-19-2024 C. difficile DNA ANKIT+probe Ql (Unsp spec) [facility] Urine Cultureon 06-16-2024 URC Pending Klebsiella pneumoniae [place] Count >100,000 Proteus mirabilis Proteus mirabilis * [...] S Minocycline Islt VERN >=32 R Normal [facility] Comment on above: Performed By: #### L 500.2500, L100.0100 #### [facility] [place], [address] Bilirubin Test strip Ql (U)O rdered By: Deep Dela Cruz on 06-09-2024 Bilirubin Ql (U) Negative Negative [facility] Epithelial cells.squamous LM Ql (Urine sed)Ordered By: Deep Dela Cruz on 06-09-2024 Epithelial cells.squamous LM.HPF (Urine sed) [#/Area] 0 /[HPF] 5-10 [facility] Glucose Ql (U)Ordered By: Fried on 06-09-2024 Urine Glucose (UA) Normal mg/dl Normal [facility] Ketones Test strip Ql (U)Ord ered By: Deep Dela Cruz on 06-09-2024 Ketones Ql (U) Negative Negative [facility] Microscopic analysis of urin e for red blood cells (RBC)Ordered By: Deep Dela Cruz on 06-09-2024 Urine RBC 0 SEEN /hpf 0-5 [facility] Mucus LM Ql (Urine sed)Order ed By: Deep Dela Cruz on 06-09-2024 Mucus Ql (Urine sed) 0 SEEN /hpf [facility] Nitrite Test strip Ql (U)Ord ered By: Deep Dela Cruz on 06-09-2024 Nitrite Ql (U) Positive High Negative [facility] Protein Test strip Ql (U)Ord ered By: Deep Dela Cruz on 06-09-2024 Protein Ql (U) 100 mg/dl High Negative [facility] Urinalysis, Completeon 06-09 BACTERIA 2+ /hpf Normal None Seen [facility] Comment on above: Order Comment: VANITA TER SPECIMEN Performed By: #### L 500.2500, L100.0100 #### [facility] [address] [place], [address] WBC 10-25 SEEN Normal 0-5 [facility] Comment on above: Order Comment: VANITA TER SPECIMEN Performed By: #### L 500.2500, L100.0100 #### [facility] [address] [place], [address] EPI,SQUAMOUS 0 SEEN Normal 5-10 [facility] Comment on above: Order Comment: VANITA TER SPECIMEN Performed By: #### L 500.2500, L100.0100 #### [facility] [address] [place], [address] Mucus Ql (Urine sed) 0 SEEN Normal [facility] Comment on above: Order Comment: VANITA TER SPECIMEN Performed By: #### L 500.2500, L100.0100 #### [facility] [address] [place], [address] RBC 0 SEEN Normal 0-5 [facility] Comment on above: Order Comment: VANITA TER SPECIMEN Performed By: #### L 500.2500, L100.0100 #### [facility] [address] [place], [address] Urine blood detectionOrdered By: Deep Dela Crzu on 06-09-2024 Urine Occult Blood 150 /ul High Negative [facility] Urine clarityOrdered By: Janet Dela Cruz on 06-09-2024 Clarity (U) Turbid Clear [facility] Urine color determinationOrd ered By: Deep Dela Cruz on 06-09-2024 Color (U) Yellow Yellow [facility] Urine cultureOrdered By: Janet Dela Cruz on 06-09-2024 Bacteria identified Cx Nom (U) Klebsiella pneumoniae Abnormal [facility] Bacteria identified Cx Nom (U) Proteus mirabilis Abnormal [facility] Urine leukocyte esterase det ection by dipstickOrdered By: Deep Dela Cruz on 06-09-2024 Leukocyte esterase Test strip Ql (U) 500 /ul High Negative [facility] Urine pHOrdered By: Deep hayes on 06-09-2024 pH (U) 8.0 [pH] 5.0 - 8.0 [facility] Urine sediment bacteria coun t by microscopy (number/high power field)Ordered By: Deep Dela Cruz on 06-09-2024 Bacteria LM.HPF (Urine sed) [#/Area] 2 /[HPF] None Seen [facility] Urine specific gravity measu rementOrdered By: Deep Dela Cruz on 06-09-2024 Specific gravity (U) [Rel density] 1.010 1.002-1.030 [facility] Urobilinogen Ql (U)Ordered B y: Deep Dela Cruz on 06-09-2024 Urine Urobilinogen Normal mg/dl Normal [facility] White blood cell countOrdere d By: Deep Dela Cruz on 06-09-2024 Urine WBC 10-25 SEEN /hpf 0-5 [facility] Albumin to globulin ratioOrd ered By: Deep Dela Cruz on 06-05-2024 Albumin/Globulin [Mass ratio] 0.5 {ratio} Low 0.9-2.4 [facility] Bilirubin, totalOrdered By: Deep Dela Cruz on 06-05-2024 Bilirubin [Mass/Vol] 0.60 mg/dL 0.20-1.[address] [facility] Comment on above: For patients on eltr ombopag therapy, use of Dimension [place] TBIL is not recommended. Blood urea nitrogen (BUN)/cr eatinine ratioOrdered By: Deep Dela Cruz on 06-05-2024 Urea nitrogen/Creatinine [Mass ratio] 26.1 mg/mg High 10-20 [facility] CBC-Complete Blood Cnt No Di ffon 06-05-2024 Erythrocyte distribution width (RBC) [Ratio] 15.0 % High 11.6-14.6 [facility] Comment on above: Order Comment: 303-2 Performed By: #### L 500.2500, L100.0100 #### [facility] [address] [place] [place], [address] Hematocrit (Bld) [Volume fraction] 38.0 % Normal 37-47 [facility] Comment on above: Order Comment: 303-2 Performed By: #### L 500.2500, L100.0100 #### [facility] [address] [place], [address] Hemoglobin (Bld) [Mass/Vol] 11.3 g/dL Low 12.0-15.0 [facility] Comment on above: Order Comment: 303-2 Performed By: #### L 500.2500, L100.0100 #### [facility] [address] [place], [address] MCH (RBC) [Entitic mass] 29.3 pg Normal 27.0-32.0 [facility] Comment on above: Order Comment: 303-2 Performed By: #### L 500.2500, L100.0100 #### [facility] [address] [place], [address] MCHC (RBC) [Mass/Vol] 29.7 g/dL Low 32-36 [facility] Comment on above: Order Comment: 303-2 Performed By: #### L 500.2500, L100.0100 #### [facility] [address] [place], [address] MCV (RBC) [Entitic vol] 98.4 fL Normal 81-99 [facility] Comment on above: Order Comment: 303-2 Performed By: #### L 500.2500, L100.0100 #### [facility] [address] [place], [address] Platelet mean volume (Bld) [Entitic vol] 10.7 fL Normal 6.2-12.0 [facility] Comment on above: Order Comment: 303-2 Performed By: #### L 500.2500, L100.0100 #### [facility] [address] [place], [address] Platelets (Bld) [#/Vol] 401 10*3/uL Normal 150-450 [facility] Comment on above: Order Comment: 303-2 Performed By: #### L 500.2500, L100.0100 #### [facility] [address] [place], [address] RBC (Bld) [#/Vol] 3.86 10*6/uL Low 4.2-5.4 [facility] Comment on above: Order Comment: 303-2 Performed By: #### L 500.2500, L100.0100 #### [facility] [address] [place], [address] RDW SD 54.3 fl High 35.1-43.9 [facility] Comment on above: Order Comment: 303-2 Performed By: #### L 500.2500, L100.0100 #### [facility] [address] [place], [address] WBC (Bld) [#/Vol] 4.8 10*3/uL Normal 4.4-11.0 [facility] Comment on above: Order Comment: 303-2 Performed By: #### L 500.2500, L100.0100 #### [facility] [address] [place], [address] Carbon dioxide measurementOr dered By: Deep Dela Cruz on 06-05-2024 CO2 [Moles/Vol] 25.0 mmol/L 21.0-32.0 [facility] Chloride measurementOrdered By: Deep Dela Cruz on 06-05-2024 Chloride [Moles/Vol] 105 mmol/L 98-[address] [facility] Comprehensive Metabolic Prof ilon 06-05-2024 Albumin [Mass/Vol] 2.1 g/dL Low 3.2-5.0 [facility] Comment on above: Order Comment: 303-2 Performed By: #### L 500.2500, L100.0100 #### [facility] [address] [place], [address] Albumin/Globulin [Mass ratio] 0.5 {ratio} Low 0.9-2.4 [facility] Comment on above: Order Comment: 303-2 Performed By: #### L 500.2500, L100.0100 #### [facility] [address] [place], [address] ALK P 155 U/L High 45-117 [facility] Comment on above: Order Comment: 303-2 Performed By: #### L 500.2500, L100.0100 #### [facility] [address] [place], [address] ALT [Catalytic activity/Vol] 7 U/L Low 13-56 [facility] Comment on above: Order Comment: 303-2 Performed By: #### L 500.2500, L100.0100 #### [facility] [address] [place], [address] AST [Catalytic activity/Vol] 13 U/L Low 15-37 [facility] Comment on above: Order Comment: 303-2 Performed By: #### L 500.2500, L100.0100 #### [facility] [address] [place], [address] Bilirubin [Mass/Vol] 0.60 mg/dL Normal 0.20-1.[address] [facility] Comment on above: Order Comment: 303-2 Result Comment: For patients on eltrombopag therapy, use of Dimension [place] TBIL is not recommended. Performed By: #### L 500.2500, L100.0100 #### [facility] [address] [place], [address] BUN/CRE 26.1 RATIO High 10-20 [facility] Comment on above: Order Comment: 303-2 Performed By: #### L 500.2500, L100.0100 #### [facility] [address] [place], [address] CA,Total 8.9 mg/dL Normal 8.5-10.1 [facility] Comment on above: Order Comment: 303-2 Performed By: #### L 500.2500, L100.0100 #### [facility] [address] [place], [address] Chloride [Moles/Vol] 105 mmol/L Normal 98-[address] [facility] Comment on above: Order Comment: 303-2 Performed By: #### L 500.2500, L100.0100 #### [facility] [address] [place], [address] CO2 [Moles/Vol] 25.0 mmol/L Normal 21.0-32.0 [facility] Comment on above: Order Comment: 303-2 Performed By: #### L 500.2500, L100.0100 #### [facility] [address] [place], [address] Creatinine [Mass/Vol] 0.54 mg/dL Low 0.55-1.02 [facility] Comment on above: Order Comment: 303-2 Result Comment: The validity of the calculated GFR GFRAA in patients over 70 years has not been determined. Clinical correlation is essential. Performed By: #### L 500.2500, L100.0100 #### [facility] [address] [place], [address] EST GFR - AA 140 mL/min Normal >60 [facility] Comment on above: Order Comment: 303-2 Result Comment: Afri can Tristanian GFR Calc Performed By: #### L 500.2500, L100.0100 #### [facility] [address] [place], [address] GAP 7 Normal 5-15 [facility] Comment on above: Order Comment: 303-2 Performed By: #### L 500.2500, L100.0100 #### [facility] [address] [place], [address] GFR/1.73 sq M.predicted among non-blacks MDRD (S/P/Bld) [Vol rate/Area] 116 mL/min/{1.73_m2} Normal >60 [facility] Comment on above: Order Comment: 303-2 Result Comment: Non- GFR Calc Performed By: #### L 500.2500, L100.0100 #### [facility] [address] [place], [address] Globulin (S) [Mass/Vol] 4.4 g/dL High 2.2-4.2 [facility] Comment on above: Order Comment: 303-2 Performed By: #### L 500.2500, L100.0100 #### [facility] [address] [place], [address] Glucose [Mass/Vol] 98 mg/dL Normal 74-106 [facility] Comment on above: Order Comment: 303-2 Performed By: #### L 500.2500, L100.0100 #### [facility] [address] [place], [address] Potassium [Moles/Vol] 3.8 mmol/L Normal 3.5-5.1 [facility] Comment on above: Order Comment: 303-2 Performed By: #### L 500.2500, L100.0100 #### [facility] [address] [place], [address] Sodium [Moles/Vol] 137 mmol/L Normal 136-145 [facility] Comment on above: Order Comment: 303-2 Performed By: #### L 500.2500, L100.0100 #### [facility] [address] [place], [address] T PROT 6.5 g/dL Normal 6.4-8.2 [facility] Comment on above: Order Comment: 303-2 Performed By: #### L 500.2500, L100.0100 #### [facility] [address] [place], [address] Urea nitrogen [Mass/Vol] 14 mg/dL Normal 7-18 [facility] Comment on above: Order Comment: 303-2 Performed By: #### L 500.2500, L100.0100 #### [facility] [address] [place], [address] Erythrocyte distribution wid th (RBC) [Ratio]Ordered By: Deep Dela Cruz on 06-05-2024 Erythrocyte distribution width (RBC) [Entitic vol] 54.3 fL High 35.1-43.9 [facility] Erythrocyte distribution wid th ratioOrdered By: Deep Dela Cruz on 06-05-2024 Erythrocyte distribution width (RBC) [Ratio] 15.0 % High 11.6-14.6 [facility] Estimated glomerular filtrat ion rate (GFR) AmericanOrdered By: Deep Dela Cruz on 06-05-2024 Estimated GFR (MDRD) Amer 140 mL/min >60 [facility] Comment on above: GFR Calc Glomerular filtration rate ( GFR) estimationOrdered By: Deep Dela Cruz on 06-05-2024 Estimated GFR (MDRD) Non-Af Amer 116 mL/min >60 [facility] Comment on above: Non- GFR Calc Glucose measurementOrdered B y: Deep Dela Cruz on 06-05-2024 Glucose [Mass/Vol] 98 mg/dL 74-106 [facility] Hematocrit Auto (Bld) [Volum e fraction]Ordered By: Deep Dela Cruz on 06-05-2024 Hematocrit (Bld) [Volume fraction] 38.0 % 37-47 [facility] Hemoglobin measurementOrdere d By: Deep Dela Cruz on 06-05-2024 Hemoglobin (Bld) [Mass/Vol] 11.3 g/dL Low 12.0-15.0 [facility] - Chemistry and C hemistry - challengeOrdered By: Deep Dela Cruz on 06-05-2024 AST [Catalytic activity/Vol] 13 U/L Low 15-37 [facility] MCV (mean corpuscular volume ) determinationOrdered By: Deep Dela Cruz on 06-05-2024 MCV (RBC) [Entitic vol] 98.4 fL 81-99 [facility] Mean corpuscular hemoglobin (MCH) determinationOrdered By: Deep Dela Cruz on 06-05-2024 MCH (RBC) [Entitic mass] 29.3 pg 27.0-32.0 [facility] Mean corpuscular hemoglobin concentration (MCHC) determinationOrdered By: Deep Dela Cruz on 06-05-2024 MCHC (RBC) [Mass/Vol] 29.7 g/dL Low 32-36 [facility] Mean platelet volume determi nationOrdered By: Deep Dela Cruz on 06-05-2024 Platelet mean volume (Bld) [Entitic vol] 10.7 fL 6.2-12.0 [facility] Platelet countOrdered By: Fried on 06-05-2024 Platelets (Bld) [#/Vol] 401 10*3/uL 150-450 [facility] Potassium measurementOrdered By: Deep Dela Cruz on 06-05-2024 Potassium [Moles/Vol] 3.8 mmol/L 3.5-5.1 [facility] RBC Auto (Bld) [#/Vol]Ordere d By: Deep Dela Cruz on 06-05-2024 RBC (Bld) [#/Vol] 3.86 10*6/uL Low 4.2-5.4 [facility] Serum anion gap measurementO rdered By: Deep Dela Cruz on 06-05-2024 Anion gap [Moles/Vol] 7 mmol/L 5-15 [facility] Serum globulin measurementOr dered By: Deep Dela Cruz on 06-05-2024 Globulin (S) [Mass/Vol] 4.4 g/dL High 2.2-4.2 [facility] Serum or plasma alanine wilson otransferase (ALT) measurementOrdered By: Deep Dela Cruz on 06-05-2024 ALT [Catalytic activity/Vol] 7 U/L Low 13-56 [facility] Serum or plasma albumin jessi urement (mass/volume)Ordered By: Deep Dela Cruz on 06-05-2024 Albumin [Mass/Vol] 2.1 g/dL Low 3.2-5.0 [facility] Serum or plasma alkaline jero sphatase measurementOrdered By: Deep Dela Cruz on 06-05-2024 ALP [Catalytic activity/Vol] 155 U/L High 45-117 [facility] Serum or plasma calcium jessi urement (mass/volume)Ordered By: Deep Dela Cruz on 06-05-2024 Calcium [Mass/Vol] 8.9 mg/dL 8.5-10.1 [facility] Serum or plasma creatinine m easurement (mass/volume)Ordered By: Deep Dela Cruz on 06-05-2024 Creatinine [Mass/Vol] 0.54 mg/dL Low 0.55-1.02 [facility] Comment on above: The validity of the calculated GFR & GFRAA in patients over 70 years has not been determined. Clinical correlation is essential. Serum or plasma urea nitroge n measurement (mass/volume)Ordered By: Deep Dela Cruz on 06-05-2024 Urea nitrogen [Mass/Vol] 14 mg/dL 7-18 [facility] Sodium levelOrdered By: Deep Dela Cruz on 06-05-2024 Sodium [Moles/Vol] 137 mmol/L 136-145 [facility] Total proteinOrdered By: Janet Dela Cruz on 06-05-2024 Protein [Mass/Vol] 6.5 g/dL 6.4-8.2 [facility] White blood cell (WBC) count Ordered By: Deep Dela Cruz on 06-05-2024 WBC (Bld) [#/Vol] 4.8 10*3/uL 4.4-11.0 [facility] Basic Metabolic Profile (BMP )on 05-29-2024 BUN/CRE 30.3 RATIO High 10-20 [facility] Comment on above: Order Comment: 303.2 Performed By: #### L 300.4310, L300.3900 #### [facility] [address] [place], [address] CA,Total 8.6 mg/dL Normal 8.5-10.1 [facility] Comment on above: Order Comment: 303.2 Performed By: #### L 300.4310, L300.3900 #### [facility] [address] [place], [address] Chloride [Moles/Vol] 104 mmol/L Normal 98-[address] [facility] Comment on above: Order Comment: 303.2 Performed By: #### L 300.4310, L300.3900 #### [facility] [address] [place], [address] CO2 [Moles/Vol] 26.0 mmol/L Normal 21.0-32.0 [facility] Comment on above: Order Comment: 303.2 Performed By: #### L 300.4310, L300.3900 #### [facility] [address] [place], [address] Creatinine [Mass/Vol] 0.46 mg/dL Low 0.55-1.02 [facility] Comment on above: Order Comment: 303.2 Result Comment: The validity of the calculated GFR GFRAA in patients over 70 years has not been determined. Clinical correlation is essential. Performed By: #### L 300.4310, L300.3900 #### [facility] [address] [place], [address] EST GFR - AA 166 mL/min Normal >60 [facility] Comment on above: Order Comment: 303.2 Result Comment: Afri can Tristanian GFR Calc Performed By: #### L 300.4310, L300.3900 #### [facility] [address] [place], [address] GAP 7 Normal 5-15 [facility] Comment on above: Order Comment: 303.2 Performed By: #### L 300.4310, L300.3900 #### [facility] [address] [place], [address] GFR/1.73 sq M.predicted among non-blacks MDRD (S/P/Bld) [Vol rate/Area] 137 mL/min/{1.73_m2} Normal >60 [facility] Comment on above: Order Comment: 303.2 Result Comment: Non- GFR Calc Performed By: #### L 300.4310, L300.3900 #### [facility] [address] [place], [address] Glucose [Mass/Vol] 99 mg/dL Normal 74-106 [facility] Comment on above: Order Comment: 303.2 Performed By: #### L 300.4310, L300.3900 #### [facility] [address] [place], [address] Potassium [Moles/Vol] 4.0 mmol/L Normal 3.5-5.1 [facility] Comment on above: Order Comment: 303.2 Performed By: #### L 300.4310, L300.3900 #### [facility] [address] [place], [address] Sodium [Moles/Vol] 137 mmol/L Normal 136-145 [facility] Comment on above: Order Comment: 303.2 Performed By: #### L 300.4310, L300.3900 #### [facility] [address] [place], [address] Urea nitrogen [Mass/Vol] 14 mg/dL Normal 7-18 [facility] Comment on above: Order Comment: 303.2 Performed By: #### L 300.4310, L300.3900 #### [facility] [address] [place], [address] Blood urea nitrogen (BUN)/cr eatinine ratioOrdered By: Deep Dela Cruz on 05-29-2024 Urea nitrogen/Creatinine [Mass ratio] 30.3 mg/mg High 10-20 [facility] CBC-Complete Blood Cnt No Di ffon 05-29-2024 Erythrocyte distribution width (RBC) [Ratio] 15.8 % High 11.6-14.6 [facility] Comment on above: Order Comment: 303.2 Performed By: #### L 300.4310, L300.3900 #### [facility] [address] [place], [address] Hematocrit (Bld) [Volume fraction] 29.1 % Low 37-47 [facility] Comment on above: Order Comment: 303.2 Performed By: #### L 300.4310, L300.3900 #### [facility] [address] [place], [address] Hemoglobin (Bld) [Mass/Vol] 8.8 g/dL Low 12.0-15.0 [facility] Comment on above: Order Comment: 303.2 Performed By: #### L 300.4310, L300.3900 #### [facility] [address] [place], [address] MCH (RBC) [Entitic mass] 28.8 pg Normal 27.0-32.0 [facility] Comment on above: Order Comment: 303.2 Performed By: #### L 300.4310, L300.3900 #### [facility] [address] [place], [address] MCHC (RBC) [Mass/Vol] 30.2 g/dL Low 32-36 [facility] Comment on above: Order Comment: 303.2 Performed By: #### L 300.4310, L300.3900 #### [facility] [address] [place], [address] MCV (RBC) [Entitic vol] 95.1 fL Normal 81-99 [facility] Comment on above: Order Comment: 303.2 Performed By: #### L 300.4310, L300.3900 #### [facility] [address] [place], [address] Platelet mean volume (Bld) [Entitic vol] 10.2 fL Normal 6.2-12.0 [facility] Comment on above: Order Comment: 303.2 Performed By: #### L 300.4310, L300.3900 #### [facility] [address] [place], [address] Platelets (Bld) [#/Vol] 350 10*3/uL Normal 150-450 [facility] Comment on above: Order Comment: 303.2 Performed By: #### L 300.4310, L300.3900 #### [facility] [address] [place], [address] RBC (Bld) [#/Vol] 3.06 10*6/uL Low 4.2-5.4 [facility] Comment on above: Order Comment: 303.2 Performed By: #### L 300.4310, L300.3900 #### [facility] [address] [place], [address] RDW SD 54.8 fl High 35.1-43.9 [facility] Comment on above: Order Comment: 303.2 Performed By: #### L 300.4310, L300.3900 #### [facility] [address] [place], [address] WBC (Bld) [#/Vol] 6.1 10*3/uL Normal 4.4-11.0 [facility] Comment on above: Order Comment: 303.2 Performed By: #### L 300.4310, L300.3900 #### [facility] [address] [place], [address] Carbon dioxide measurementOr dered By: Deep Dela Cruz on 05-29-2024 CO2 [Moles/Vol] 26.0 mmol/L 21.0-32.0 [facility] Chloride measurementOrdered By: Deep Dela Cruz on 05-29-2024 Chloride [Moles/Vol] 104 mmol/L 98-[address] [facility] Erythrocyte distribution wid th (RBC) [Ratio]Ordered By: Deep Dela Cruz on 05-29-2024 Erythrocyte distribution width (RBC) [Entitic vol] 54.8 fL High 35.1-43.9 [facility] Erythrocyte distribution wid th ratioOrdered By: Deep Dela Cruz on 05-29-2024 Erythrocyte distribution width (RBC) [Ratio] 15.8 % High 11.6-14.6 [facility] Estimated glomerular filtrat ion rate (GFR) AmericanOrdered By: Deep Dela Cruz on 05-29-2024 Estimated GFR (MDRD) Amer 166 mL/min >60 [facility] Comment on above: GFR Calc Glomerular filtration rate ( GFR) estimationOrdered By: Deep Dela Cruz on 05-29-2024 Estimated GFR (MDRD) Non-Af Amer 137 mL/min >60 [facility] Comment on above: Non- GFR Calc Glucose measurementOrdered B y: Deep Dela Cruz on 05-29-2024 Glucose [Mass/Vol] 99 mg/dL 74-106 [facility] Hematocrit Auto (Bld) [Volum e fraction]Ordered By: Deep Dela Cruz on 05-29-2024 Hematocrit (Bld) [Volume fraction] 29.1 % Low 37-47 [facility] Hemoglobin measurementOrdere d By: Deep Dela Cruz on 05-29-2024 Hemoglobin (Bld) [Mass/Vol] 8.8 g/dL Low 12.0-15.0 [facility] MCV (mean corpuscular volume ) determinationOrdered By: Deep Dela Cruz on 05-29-2024 MCV (RBC) [Entitic vol] 95.1 fL 81-99 [facility] Mean corpuscular hemoglobin (MCH) determinationOrdered By: Deep Dela Cruz on 05-29-2024 MCH (RBC) [Entitic mass] 28.8 pg 27.0-32.0 [facility] Mean corpuscular hemoglobin concentration (MCHC) determinationOrdered By: Deep Dela Cruz on 05-29-2024 MCHC (RBC) [Mass/Vol] 30.2 g/dL Low 32-36 [facility] Mean platelet volume determi nationOrdered By: Deep Dela Cruz on 05-29-2024 Platelet mean volume (Bld) [Entitic vol] 10.2 fL 6.2-12.0 [facility] Platelet countOrdered By: Fried on 05-29-2024 Platelets (Bld) [#/Vol] 350 10*3/uL 150-450 [facility] Potassium measurementOrdered By: Deep Dela Cruz on 05-29-2024 Potassium [Moles/Vol] 4.0 mmol/L 3.5-5.1 [facility] RBC Auto (Bld) [#/Vol]Ordere d By: Deep Dela Cruz on 05-29-2024 RBC (Bld) [#/Vol] 3.06 10*6/uL Low 4.2-5.4 [facility] Serum anion gap measurementO rdered By: Deep Dela Cruz on 05-29-2024 Anion gap [Moles/Vol] 7 mmol/L 5-15 [facility] Serum or plasma calcium jessi urement (mass/volume)Ordered By: Deep Dela Cruz on 05-29-2024 Calcium [Mass/Vol] 8.6 mg/dL 8.5-10.1 [facility] Serum or plasma creatinine m easurement (mass/volume)Ordered By: Deep Dela Cruz on 05-29-2024 Creatinine [Mass/Vol] 0.46 mg/dL Low 0.55-1.02 [facility] Comment on above: The validity of the calculated GFR & GFRAA in patients over 70 years has not been determined. Clinical correlation is essential. Serum or plasma urea nitroge n measurement (mass/volume)Ordered By: Deep Dela Cruz on 05-29-2024 Urea nitrogen [Mass/Vol] 14 mg/dL 7-18 [facility] Sodium levelOrdered By: Deep Dela Cruz on 05-29-2024 Sodium [Moles/Vol] 137 mmol/L 136-145 [facility] White blood cell (WBC) count Ordered By: Deep Dela Cruz on 05-29-2024 WBC (Bld) [#/Vol] 6.1 10*3/uL 4.4-11.0 [facility] Urine Cultureon 05-26-2024 [facility] Results called on 05/26/24-1211 by MARGIE to JOSE . Copy of report sent to Infection Control Printer [id number] 05/26/24 1204 MARGIE. Urine Culture ESBL Escherichia coli Saco Count <1000 MARKER ESBL producing OrganismA MARKER ESBL producing OrganismA [place] Count 25,000-50,000 Presumptive Lactobacillus sp. Ampicillin Islt [...] S Minocycline Islt VERN 1 S Normal [facility] Comment on above: Performed By: #### L 500.2500, L100.0100 #### [facility] [address] [place], [place], [id number] Bacteria LM.HPF (Urine sed) [#/Area]Ordered By: Deep Dela Cruz on 05-23-2024 Urine Bacteria RARE /hpf None Seen [facility] Bilirubin Test strip Ql (U)O rdered By: Deep Dela Cruz on 05-23-2024 Bilirubin Ql (U) Negative Negative [facility] Epithelial cells.squamous LM Ql (Urine sed)Ordered By: Deep Dela Cruz on 05-23-2024 Epithelial cells.squamous LM.HPF (Urine sed) [#/Area] 0 /[HPF] 5-10 [facility] Glucose Ql (U)Ordered By: Fried on 05-23-2024 Urine Glucose (UA) Normal mg/dl Normal [facility] Ketones Test strip Ql (U)Ord ered By: Deep Dela Cruz on 05-23-2024 Ketones Ql (U) Negative Negative [facility] Microscopic analysis of urin e for red blood cells (RBC)Ordered By: Depe Dela Cruz on 05-23-2024 Urine RBC 0 SEEN /hpf 0-5 [facility] Mucus LM Ql (Urine sed)Order ed By: Deep Dela Cruz on 05-23-2024 Mucus Ql (Urine sed) 0 SEEN /hpf [facility] Nitrite Test strip Ql (U)Ord ered By: Deep Dela Cruz on 05-23-2024 Nitrite Ql (U) Negative Negative [facility] Protein Test strip Ql (U)Ord ered By: Deep Dela Cruz on 05-23-2024 Protein Ql (U) 15 mg/dl High Negative [facility] Urinalysis, Completeon 05-23 BACTERIA RARE Normal None Seen [facility] Comment on above: Order Comment: SCCAT HETER SPECIMEN Performed By: #### L 500.2500, L100.0100 #### [facility] [address] [place], [address] EPI,SQUAMOUS 0-5 SEEN Normal 5-10 [facility] Comment on above: Order Comment: SCCAT HETER SPECIMEN Performed By: #### L 500.2500, L100.0100 #### [facility] [address] [place], [address] WBC 10-25 SEEN Normal 0-5 [facility] Comment on above: Order Comment: SCCAT HETER SPECIMEN Performed By: #### L 500.2500, L100.0100 #### [facility] [address] [place], [address] Mucus Ql (Urine sed) 0 SEEN Normal [facility] Comment on above: Order Comment: SCCAT HETER SPECIMEN Performed By: #### L 500.2500, L100.0100 #### [facility] [address] [place], [address] RBC 0 SEEN Normal 0-5 [facility] Comment on above: Order Comment: SCCAT HETER SPECIMEN Performed By: #### L 500.2500, L100.0100 #### [facility] [address] [place], [address] Urine blood detectionOrdered By: Deep Dela Cruz on 05-23-2024 Urine Occult Blood Negative Negative [facility] Urine clarityOrdered By: Janet Dela Cruz on 05-23-2024 Clarity (U) Sl. Cloudy Clear [facility] Urine color determinationOrd ered By: Deep Dela Cruz on 05-23-2024 Color (U) Yellow Yellow [facility] Urine leukocyte esterase det ection by dipstickOrdered By: Deep Dela Cruz on 05-23-2024 Leukocyte esterase Test strip Ql (U) 500 /ul High Negative [facility] Urine pHOrdered By: Deep hayes on 05-23-2024 pH (U) 7.0 [pH] 5.0 - 8.0 [facility] Urine specific gravity measu rementOrdered By: Deep Dela Cruz on 05-23-2024 Specific gravity (U) [Rel density] 1.010 1.002-1.030 [facility] Urobilinogen Ql (U)Ordered B y: Deep Dela Cruz on 05-23-2024 Urine Urobilinogen Normal mg/dl Normal [facility] White blood cell countOrdere d By: Deep Dela Cruz on 05-23-2024 Urine WBC 10-25 SEEN /hpf 0-5 [facility] Albumin to globulin ratioOrd ered By: Deep Dela Cruz on 05-22-2024 Albumin/Globulin [Mass ratio] 0.5 {ratio} Low 0.9-2.4 [facility] Bilirubin, totalOrdered By: Deep Dela Cruz on 05-22-2024 Bilirubin [Mass/Vol] 0.40 mg/dL 0.20-1.[address] [facility] Comment on above: For patients on eltr ombopag therapy, use of Dimension [place] TBIL is not recommended. Blood urea nitrogen (BUN)/cr eatinine ratioOrdered By: Deep Dela Cruz on 05-22-2024 Urea nitrogen/Creatinine [Mass ratio] 21.7 mg/mg High 10-20 [facility] CBC-Complete Blood Cnt No Di ffon 05-22-2024 Erythrocyte distribution width (RBC) [Ratio] 15.4 % High 11.6-14.6 [facility] Comment on above: Order Comment: 303.2 Performed By: #### L 500.2500, L100.0100 #### [facility] [address] [place], [address] Hematocrit (Bld) [Volume fraction] 26.4 % Low 37-47 [facility] Comment on above: Order Comment: 303.2 Performed By: #### L 500.2500, L100.0100 #### [facility] [address] [place], [address] Hemoglobin (Bld) [Mass/Vol] 8.0 g/dL Low 12.0-15.0 [facility] Comment on above: Order Comment: 303.2 Performed By: #### L 500.2500, L100.0100 #### [facility] [address] [place], [address] MCH (RBC) [Entitic mass] 28.9 pg Normal 27.0-32.0 [facility] Comment on above: Order Comment: 303.2 Performed By: #### L 500.2500, L100.0100 #### [facility] [address] [place], [address] MCHC (RBC) [Mass/Vol] 30.3 g/dL Low 32-36 [facility] Comment on above: Order Comment: 303.2 Performed By: #### L 500.2500, L100.0100 #### [facility] [address] [place], [address] MCV (RBC) [Entitic vol] 95.3 fL Normal 81-99 [facility] Comment on above: Order Comment: 303.2 Performed By: #### L 500.2500, L100.0100 #### [facility] [address] [place], [address] Platelet mean volume (Bld) [Entitic vol] 10.0 fL Normal 6.2-12.0 [facility] Comment on above: Order Comment: 303.2 Performed By: #### L 500.2500, L100.0100 #### [facility] [address] [place], [address] Platelets (Bld) [#/Vol] 484 10*3/uL High 150-450 [facility] Comment on above: Order Comment: 303.2 Performed By: #### L 500.2500, L100.0100 #### [facility] [address] [place], [address] RBC (Bld) [#/Vol] 2.77 10*6/uL Low 4.2-5.4 [facility] Comment on above: Order Comment: 303.2 Performed By: #### L 500.2500, L100.0100 #### [facility] [address] [place], [address] RDW SD 53.6 fl High 35.1-43.9 [facility] Comment on above: Order Comment: 303.2 Performed By: #### L 500.2500, L100.0100 #### [facility] [address] [place], [address] WBC (Bld) [#/Vol] 8.0 10*3/uL Normal 4.4-11.0 [facility] Comment on above: Order Comment: 303.2 Performed By: #### L 500.2500, L100.0100 #### [facility] [address] [place], [address] CNPNon 05-22-2024 CNPN Normal [facility] Carbon dioxide measurementOr dered By: Deep Dela Cruz on 05-22-2024 CO2 [Moles/Vol] 29.0 mmol/L 21.0-32.0 [facility] Chloride measurementOrdered By: Deep Dela Cruz on 05-22-2024 Chloride [Moles/Vol] 103 mmol/L 98-[address] [facility] Comprehensive Metabolic Prof ilon 05-22-2024 Albumin [Mass/Vol] 1.8 g/dL Low 3.2-5.0 [facility] Comment on above: Order Comment: 303.2 Performed By: #### L 500.2500, L100.0100 #### [facility] [address] [place], [address] Albumin/Globulin [Mass ratio] 0.5 {ratio} Low 0.9-2.4 [facility] Comment on above: Order Comment: 303.2 Performed By: #### L 500.2500, L100.0100 #### [facility] [address] [place], [address] ALK P 141 U/L High 45-117 [facility] Comment on above: Order Comment: 303.2 Performed By: #### L 500.2500, L100.0100 #### [facility] [address] [place], [address] ALT [Catalytic activity/Vol] 10 U/L Low 13-56 [facility] Comment on above: Order Comment: 303.2 Performed By: #### L 500.2500, L100.0100 #### [facility] [address] [place], [address] AST [Catalytic activity/Vol] 19 U/L Normal 15-37 [facility] Comment on above: Order Comment: 303.2 Result Comment: Slig ht Hemolysis, Result may be falsely increased. Performed By: #### L 500.2500, L100.0100 #### [facility] [address] [place], [address] Bilirubin [Mass/Vol] 0.40 mg/dL Normal 0.20-1.[address] [facility] Comment on above: Order Comment: 303.2 Result Comment: For patients on eltrombopag therapy, use of Dimension [place] TBIL is not recommended. Performed By: #### L 500.2500, L100.0100 #### [facility] [address] [place], [address] BUN/CRE 21.7 RATIO High 10-20 [facility] Comment on above: Order Comment: 303.2 Performed By: #### L 500.2500, L100.0100 #### [facility] [address] [place], [address] CA,Total 8.2 mg/dL Low 8.5-10.1 [facility] Comment on above: Order Comment: 303.2 Performed By: #### L 500.2500, L100.0100 #### [facility] [address] [place], [address] Chloride [Moles/Vol] 103 mmol/L Normal 98-[address] [facility] Comment on above: Order Comment: 303.2 Performed By: #### L 500.2500, L100.0100 #### [facility] [address] [place], [address] CO2 [Moles/Vol] 29.0 mmol/L Normal 21.0-32.0 [facility] Comment on above: Order Comment: 303.2 Performed By: #### L 500.2500, L100.0100 #### [facility] [address] [place], [address] Creatinine [Mass/Vol] 0.51 mg/dL Low 0.55-1.02 [facility] Comment on above: Order Comment: 303.2 Result Comment: The validity of the calculated GFR GFRAA in patients over 70 years has not been determined. Clinical correlation is essential. Performed By: #### L 500.2500, L100.0100 #### [facility] [address] [place], [address] EST GFR - AA 149 mL/min Normal >60 [facility] Comment on above: Order Comment: 303.2 Result Comment: Afri can Tristanian GFR Calc Performed By: #### L 500.2500, L100.0100 #### [facility] [address] [place], [address] GAP 5 Normal 5-15 [facility] Comment on above: Order Comment: 303.2 Performed By: #### L 500.2500, L100.0100 #### [facility] [address] [place], [address] GFR/1.73 sq M.predicted among non-blacks MDRD (S/P/Bld) [Vol rate/Area] 124 mL/min/{1.73_m2} Normal >60 [facility] Comment on above: Order Comment: 303.2 Result Comment: Non- GFR Calc Performed By: #### L 500.2500, L100.0100 #### [facility] [address] [place], [address] Globulin (S) [Mass/Vol] 3.8 g/dL Normal 2.2-4.2 [facility] Comment on above: Order Comment: 303.2 Performed By: #### L 500.2500, L100.0100 #### [facility] [address] [place], [address] Glucose [Mass/Vol] 102 mg/dL Normal 74-106 [facility] Comment on above: Order Comment: 303.2 Result Comment: Fast ing Glucose result from 100 to 125 mg/dL suggests IMPAIRED HOMEOSTASIS per A.D.A. criteria. Performed By: #### L 500.2500, L100.0100 #### [facility] [address] [place], [address] Potassium [Moles/Vol] 4.0 mmol/L Normal 3.5-5.1 [facility] Comment on above: Order Comment: 303.2 Result Comment: Slig ht Hemolysis, Result may be falsely increased. Performed By: #### L 500.2500, L100.0100 #### [facility] [address] [place], [address] Sodium [Moles/Vol] 137 mmol/L Normal 136-145 [facility] Comment on above: Order Comment: 303.2 Performed By: #### L 500.2500, L100.0100 #### [facility] [address] [place], [address] T PROT 5.6 g/dL Low 6.4-8.2 [facility] Comment on above: Order Comment: 303.2 Performed By: #### L 500.2500, L100.0100 #### [facility] [address] [place], [address] Urea nitrogen [Mass/Vol] 11 mg/dL Normal 7-18 [facility] Comment on above: Order Comment: 303.2 Performed By: #### L 500.2500, L100.0100 #### [facility] [address] [place], [address] Erythrocyte distribution wid th (RBC) [Ratio]Ordered By: Deep Dela Cruz on 05-22-2024 Erythrocyte distribution width (RBC) [Entitic vol] 53.6 fL High 35.1-43.9 [facility] Erythrocyte distribution wid th ratioOrdered By: Deep Dela Cruz on 05-22-2024 Erythrocyte distribution width (RBC) [Ratio] 15.4 % High 11.6-14.6 [facility] Estimated glomerular filtrat ion rate (GFR) AmericanOrdered By: Deep Dela Cruz on 05-22-2024 Estimated GFR (MDRD) Amer 149 mL/min >60 [facility] Comment on above: GFR Calc Glomerular filtration rate ( GFR) estimationOrdered By: Deep Dela Cruz on 05-22-2024 Estimated GFR (MDRD) Non-Af Amer 124 mL/min >60 [facility] Comment on above: Non- GFR Calc Glucose measurementOrdered B y: Deep Dela Cruz on 05-22-2024 Glucose [Mass/Vol] 102 mg/dL 74-106 [facility] Comment on above: Fasting Glucose resu lt from 100 to 125 mg/dL suggests IMPAIRED HOMEOSTASIS per A.D.A. criteria. Hematocrit Auto (Bld) [Volum e fraction]Ordered By: Deep Dela Cruz on 05-22-2024 Hematocrit (Bld) [Volume fraction] 26.4 % Low 37-47 [facility] Hemoglobin measurementOrdere d By: Deep Dela Cruz on 05-22-2024 Hemoglobin (Bld) [Mass/Vol] 8.0 g/dL Low 12.0-15.0 [facility] - Chemistry and C hemistry - challengeOrdered By: Deep Dela Cruz on 05-22-2024 AST [Catalytic activity/Vol] 19 U/L 15-37 [facility] Comment on above: Slight Hemolysis, Re sult may be falsely increased. MCV (mean corpuscular volume ) determinationOrdered By: Deep Dela Cruz on 05-22-2024 MCV (RBC) [Entitic vol] 95.3 fL 81-99 [facility] Mean corpuscular hemoglobin (MCH) determinationOrdered By: Deep Dela Cruz on 05-22-2024 MCH (RBC) [Entitic mass] 28.9 pg 27.0-32.0 [facility] Mean corpuscular hemoglobin concentration (MCHC) determinationOrdered By: Deep Dela Cruz on 05-22-2024 MCHC (RBC) [Mass/Vol] 30.3 g/dL Low 32-36 [facility] Mean platelet volume determi nationOrdered By: Deep Dela Cruz on 05-22-2024 Platelet mean volume (Bld) [Entitic vol] 10.0 fL 6.2-12.0 [facility] Platelet countOrdered By: Fried on 05-22-2024 Platelets (Bld) [#/Vol] 484 10*3/uL High 150-450 [facility] Potassium measurementOrdered By: Deep Dela Cruz on 05-22-2024 Potassium [Moles/Vol] 4.0 mmol/L 3.5-5.1 [facility] Comment on above: Slight Hemolysis, Re sult may be falsely increased. RBC Auto (Bld) [#/Vol]Ordere d By: Deep Dela Cruz on 05-22-2024 RBC (Bld) [#/Vol] 2.77 10*6/uL Low 4.2-5.4 [facility] Serum anion gap measurementO rdered By: Deep Dela Cruz on 05-22-2024 Anion gap [Moles/Vol] 5 mmol/L 5-15 [facility] Serum globulin measurementOr dered By: Deep Dela Cruz on 05-22-2024 Globulin (S) [Mass/Vol] 3.8 g/dL 2.2-4.2 [facility] Serum or plasma alanine wilson otransferase (ALT) measurementOrdered By: Deep Dela Cruz on 05-22-2024 ALT [Catalytic activity/Vol] 10 U/L Low 13-56 [facility] Serum or plasma albumin jessi urement (mass/volume)Ordered By: Deep Dela Cruz on 05-22-2024 Albumin [Mass/Vol] 1.8 g/dL Low 3.2-5.0 [facility] Serum or plasma alkaline jero sphatase measurementOrdered By: Deep Dela Cruz on 05-22-2024 ALP [Catalytic activity/Vol] 141 U/L High 45-117 [facility] Serum or plasma calcium jessi urement (mass/volume)Ordered By: Deep Dela Cruz on 05-22-2024 Calcium [Mass/Vol] 8.2 mg/dL Low 8.5-10.1 [facility] Serum or plasma creatinine m easurement (mass/volume)Ordered By: Deep Dela Cruz on 05-22-2024 Creatinine [Mass/Vol] 0.51 mg/dL Low 0.55-1.02 [facility] Comment on above: The validity of the calculated GFR & GFRAA in patients over 70 years has not been determined. Clinical correlation is essential. Serum or plasma urea nitroge n measurement (mass/volume)Ordered By: Deep Dela Cruz on 05-22-2024 Urea nitrogen [Mass/Vol] 11 mg/dL 7-18 [facility] Sodium levelOrdered By: Deep Dela Cruz on 05-22-2024 Sodium [Moles/Vol] 137 mmol/L 136-145 [facility] Total proteinOrdered By: Janet Dela Cruz on 05-22-2024 Protein [Mass/Vol] 5.6 g/dL Low 6.4-8.2 [facility] Urine cultureOrdered By: Janet Dela Cruz on 05-22-2024 Bacteria identified Cx Nom (U) ESBL Escherichia coli Abnormal [facility] Bacteria identified Cx Nom (U) Presumptive Lactobacillus sp. Abnormal [facility] White blood cell (WBC) count Ordered By: Deep Dela Cruz on 05-22-2024 WBC (Bld) [#/Vol] 8.0 10*3/uL 4.4-11.0 [facility] Basic metabolic 2000 panelon 05-19-2024 Anion gap [Moles/Vol] 9 mmol/L Normal 8-15 [facility] Comment on above: Order Comment: Speci men Type: BLOOD SPECIMENOrdering Facility: [facility] Address: [address] [place] [address] Performed By: #### 2 4321-2 ####[facility]ORYCLIA [id number] [place] [address] [place] Calcium [Mass/Vol] 8.1 mg/dL Low 8.5-10.2 [facility] Comment on above: Order Comment: Speci men Type: BLOOD SPECIMENOrdering Facility: [facility] Address: [address] [place] [address] Performed By: #### 2 4321-2 ####[facility]ORYCLIA [id number] [place] [address] [place] Chloride [Moles/Vol] 99 mmol/L Normal 98-107 [facility] Comment on above: Order Comment: Speci men Type: BLOOD SPECIMENOrdering Facility: [facility] Address: [address] [place] [address] Performed By: #### 2 4321-2 ####[facility]ORYCLIA [id number] [address] [place] CO2 [Moles/Vol] 27 mmol/L Normal 22-30 [facility] Comment on above: Order Comment: Speci men Type: BLOOD SPECIMENOrdering Facility: [facility] Address: [address] [place] [address] Performed By: #### 2 4321-2 ####[facility] [id number] [address] Creatinine [Mass/Vol] 0.50 mg/dL Low 0.58-0.96 [facility] Comment on above: Order Comment: Speci men Type: BLOOD SPECIMENOrdering Facility: [facility] Address: [address] [place] [address] Performed By: #### 2 4321-2 ####[facility] [id number] [address] Creatinine and Glomerular filtration rate.predicted panel (S/P/Bld) 94 mL/min/1.73m??? Normal >=60 [facility] Comment on above: Order Comment: Speci men Type: BLOOD SPECIMENOrdering Facility: [facility] Address: [address] [place] [address] Result Comment: Kaylene mated Glomerular Filtration Rate [...] actual GFR. Performed By: #### 2 4321-2 ####[facility]ORYCLIA [id number] [address] Glucose [Mass/Vol] 106 mg/dL High 74-99 [facility] Comment on above: Order Comment: Speci men Type: BLOOD SPECIMENOrdering Facility: [facility] Address: [address] [place] [address] Result Comment: The [place] [employer] (ADA) [...] 2016.39(Suppl 1). Performed By: #### 2 4321-2 ####[facility] LABORATORYCLIA [id number] [address] STATES [place] [facility] Potassium [Moles/Vol] 3.8 mmol/L Normal 3.7-5.1 [facility] Comment on above: Order Comment: Speci men Type: BLOOD SPECIMENOrdering Facility: [facility] Address: [address] [place] [address] Performed By: #### 2 4321-2 ####[facility]ORYCLIA [id number] [address] Sodium [Moles/Vol] 135 mmol/L Low 136-144 [facility] Comment on above: Order Comment: Speci men Type: BLOOD SPECIMENOrdering Facility: [facility] Address: [address] [place] [address] Performed By: #### 2 4321-2 ####[facility] LABORATORYCLIA [id number] [place] [id number] [place] [facility] Urea nitrogen [Mass/Vol] 13 mg/dL Normal 7-21 [facility] Comment on above: Order Comment: Speci men Type: BLOOD SPECIMENOrdering Facility: [facility] Address: [address] [place] [address] Performed By: #### 2 4321-2 ####[facility] LABORATORYCLIA [id number] [place] [id number] [facility] [place] CASE MANAGEMon 05-19-2024 CASE MANAGEM Normal [facility] CBC panel Auto (Bld)on 05-19 Erythrocyte distribution width (RBC) [Ratio] 15.6 % High 11.5-15.0 [facility] Comment on above: Order Comment: Speci men Type: BLOOD SPECIMENOrdering Facility: [facility] Address: [address] [place] [address] Performed By: #### 5 8410-2 ####[facility] LABORATORYCLIA [id number] [address] OF [facility] Hematocrit (Bld) [Volume fraction] 25.5 % Low 36.0-46.0 [facility] Comment on above: Order Comment: Speci men Type: BLOOD SPECIMENOrdering Facility: [facility] Address: [address] [place] [address] Performed By: #### 5 8410-2 ####[facility] LABORATORYCLIA [id number] [address] STATES OF [facility] Hemoglobin (Bld) [Mass/Vol] 8.0 g/dL Low 11.5-15.5 [facility] Comment on above: Order Comment: Speci men Type: BLOOD SPECIMENOrdering Facility: [facility] Address: [address] [place] [address] Performed By: #### 5 8410-2 ####[facility] LABORATORYCLIA [id number] [address] [place] MCH (RBC) [Entitic mass] 30.3 pg Normal 26.0-34.0 [facility] Comment on above: Order Comment: Speci men Type: BLOOD SPECIMENOrdering Facility: [facility] Address: [address] [place] [address] Performed By: #### 5 8410-2 ####[facility] LABORATORYCLIA [id number] [address] [place] MCHC (RBC) [Mass/Vol] 31.4 g/dL Normal 30.5-36.0 [facility] Comment on above: Order Comment: Speci men Type: BLOOD SPECIMENOrdering Facility: [facility] Address: [address] [place] [address] Performed By: #### 5 8410-2 ####[facility] LABORATORYCLIA [id number] [address] MCV (RBC) [Entitic vol] 96.6 fL Normal 80.0-100.0 [facility] Comment on above: Order Comment: Speci men Type: BLOOD SPECIMENOrdering Facility: [facility] Address: [address] [place] [address] Performed By: #### 5 8410-2 ####[facility] LABORATORYCLIA [id number] [address] OF [place] Nucleated RBC (Bld) [#/Vol] 10*3/uL Normal <0.01 [facility] Comment on above: Order Comment: Speci men Type: BLOOD SPECIMENOrdering Facility: [facility] Address: [address] [place] [address] Performed By: #### 5 8410-2 ####[facility] LABORATORYCLIA [id number] [address] [place] Platelet mean volume (Bld) [Entitic vol] 10.0 fL Normal 9.0-12.7 [facility] Comment on above: Order Comment: Speci men Type: BLOOD SPECIMENOrdering Facility: [facility] Address: [address] [place] [address] Performed By: #### 5 8410-2 ####[facility] LABORATORYCLIA [id number] [address] OF [place] Platelets (Bld) [#/Vol] 525 10*3/uL High 150-400 [facility] Comment on above: Order Comment: Speci men Type: BLOOD SPECIMENOrdering Facility: [facility] Address: [address] [place] [address] Performed By: #### 5 8410-2 ####[facility] LABORATORYCLIA [id number] [address] [place] RBC (Bld) [#/Vol] 2.64 10*6/uL Low 3.90-5.20 [facility] Comment on above: Order Comment: Speci men Type: BLOOD SPECIMENOrdering Facility: [facility] Address: [address] [place] [address] Performed By: #### 5 8410-2 ####[facility] LABORATORYCLIA [id number] [place] [address] [place] WBC (Bld) [#/Vol] 9.85 10*3/uL Normal 3.70-11.00 [facility] Comment on above: Order Comment: Speci men Type: BLOOD SPECIMENOrdering Facility: [facility] Address: [address] [place] [address] Performed By: #### 5 8410-2 ####[facility] LABORATORYCLIA [id number] [address] [place] CNDSon 05-19-2024 CNDS Normal [facility] THERAPY NTon 05-19-2024 THERAPY NT Normal [facility] THERAPY NT Normal [facility] Basic metabolic 2000 panelon 05-18-2024 Anion gap [Moles/Vol] 11 mmol/L Normal 8-15 [facility] Comment on above: Order Comment: Speci men Type: BLOOD SPECIMENOrdering Facility: [facility] Address: [address] [place] [address] Performed By: #### 2 4321-2 ####[facility]ORATORYCLIA [id number] [place] [address] [place] Calcium [Mass/Vol] 8.0 mg/dL Low 8.5-10.2 [facility] Comment on above: Order Comment: Speci men Type: BLOOD SPECIMENOrdering Facility: [facility] Address: [address] [place] [address] Performed By: #### 2 4321-2 ####[facility] LABORATORYCLIA [id number] [place] [address] [place] Chloride [Moles/Vol] 98 mmol/L Normal 98-107 [facility] Comment on above: Order Comment: Speci men Type: BLOOD SPECIMENOrdering Facility: [facility] Address: [address] [place] [address] Performed By: #### 2 4321-2 ####[facility] LABORATORYCLIA [id number] [place] [id number] [place] CO2 [Moles/Vol] 25 mmol/L Normal 22-30 [facility] Comment on above: Order Comment: Speci men Type: BLOOD SPECIMENOrdering Facility: [facility] Address: [address] [place] [address] Performed By: #### 2 4321-2 ####[facility] LABORATORYCLIA [id number] [address] [place] Creatinine [Mass/Vol] 0.52 mg/dL Low 0.58-0.96 [facility] Comment on above: Order Comment: Speci men Type: BLOOD SPECIMENOrdering Facility: [facility] Address: [address] [place] [address] Performed By: #### 2 4321-2 ####[facility] LABORATORYCLIA [id number] [address] Creatinine and Glomerular filtration rate.predicted panel (S/P/Bld) 93 mL/min/1.73m??? Normal >=60 [facility] Comment on above: Order Comment: Speci men Type: BLOOD SPECIMENOrdering Facility: [facility] Address: [address] [place] [address] Result Comment: Kaylene mated Glomerular Filtration Rate [...] actual GFR. Performed By: #### 2 4321-2 ####[facility] LABORATORYCLIA [id number] [address] [place] Glucose [Mass/Vol] 116 mg/dL High 74-99 [facility] Comment on above: Order Comment: Speci men Type: BLOOD SPECIMENOrdering Facility: [facility] Address: [address] [place] [address] Result Comment: The [place] [employer] (ADA) [...] 2016.39(Suppl 1). Performed By: #### 2 4321-2 ####[facility] LABORATORYCLIA [id number] [place] [address] [place] Potassium [Moles/Vol] 3.8 mmol/L Normal 3.7-5.1 [facility] Comment on above: Order Comment: Helen men Type: BLOOD SPECIMENOrdering Facility: [facility] Address: [address] [place] [address] Performed By: #### 2 4321-2 ####[facility] LABORATORYCLIA [id number] [place] [address] [place] Sodium [Moles/Vol] 134 mmol/L Low 136-144 [facility] Comment on above: Order Comment: Speci men Type: BLOOD SPECIMENOrdering Facility: [facility] Address: [address] [place] [address] Performed By: #### 2 4321-2 ####[facility] LABORATORYCLIA [id number] [place] [address] [place] Urea nitrogen [Mass/Vol] 13 mg/dL Normal 7-21 [facility] Comment on above: Order Comment: Bernardoi men Type: BLOOD SPECIMENOrdering Facility: [facility] Address: [address] [place] [address] Performed By: #### 2 4321-2 ####[facility] LABORATORYCLIA [id number] [address] STATES OF [facility] CASE MANAGEMon 05-18-2024 CASE MANAGEM Normal [facility] CASE MANAGEM Normal [facility] CBC panel Auto (Bld)on 05-18 Erythrocyte distribution width (RBC) [Ratio] 15.0 % Normal 11.5-15.0 [facility] Comment on above: Order Comment: Speci men Type: BLOOD SPECIMENOrdering Facility: [facility] Address: [address] [place] [address] Performed By: #### 5 8410-2 ####[facility] LABORATORYCLIA [id number] [address] STATES [facility] Hematocrit (Bld) [Volume fraction] 27.1 % Low 36.0-46.0 [facility] Comment on above: Order Comment: Speci men Type: BLOOD SPECIMENOrdering Facility: [facility] Address: [address] [place] [address] Performed By: #### 5 8410-2 ####[facility] LABORATORYCLIA [id number] [address] [place] Hemoglobin (Bld) [Mass/Vol] 8.3 g/dL Low 11.5-15.5 [facility] Comment on above: Order Comment: Speci men Type: BLOOD SPECIMENOrdering Facility: [facility] Address: [address] [place] [address] Performed By: #### 5 8410-2 ####[facility] LABORATORYCLIA [id number] [address] [place] MCH (RBC) [Entitic mass] 28.9 pg Normal 26.0-34.0 [facility] Comment on above: Order Comment: Speci men Type: BLOOD SPECIMENOrdering Facility: [facility] Address: [address] [place] [address] Performed By: #### 5 8410-2 ####[facility]ORATORYCLIA [id number] [address] [place] MCHC (RBC) [Mass/Vol] 30.6 g/dL Normal 30.5-36.0 [facility] Comment on above: Order Comment: Speci men Type: BLOOD SPECIMENOrdering Facility: [facility] Address: [address] [place] [address] Performed By: #### 5 8410-2 ####[facility] LABORATORYCLIA [id number] [address] [place] MCV (RBC) [Entitic vol] 94.4 fL Normal 80.0-100.0 [facility] Comment on above: Order Comment: Speci men Type: BLOOD SPECIMENOrdering Facility: [facility] Address: [address] [place] [address] Performed By: #### 5 8410-2 ####[facility] LABORATORYCLIA [id number] [address] STATES [facility] Nucleated RBC (Bld) [#/Vol] 0.03 10*3/uL High <0.01 [facility] Comment on above: Order Comment: Speci men Type: BLOOD SPECIMENOrdering Facility: [facility] Address: [address] [place] [address] Performed By: #### 5 8410-2 ####[facility] LABORATORYCLIA [id number] [address] [place] Platelet mean volume (Bld) [Entitic vol] 9.9 fL Normal 9.0-12.7 [facility] Comment on above: Order Comment: Speci men Type: BLOOD SPECIMENOrdering Facility: [facility] Address: [address] [place] [address] Performed By: #### 5 8410-2 ####[facility] LABORATORYCLIA [id number] [address] [place] Platelets (Bld) [#/Vol] 567 10*3/uL High 150-400 [facility] Comment on above: Order Comment: Speci men Type: BLOOD SPECIMENOrdering Facility: [facility] Address: [address] [place] [address] Performed By: #### 5 8410-2 ####[facility] LABORATORYCLIA [id number] [address] [place] RBC (Bld) [#/Vol] 2.87 10*6/uL Low 3.90-5.20 [facility] Comment on above: Order Comment: Speci men Type: BLOOD SPECIMENOrdering Facility: [facility] Address: [address] [place] [address] Performed By: #### 5 8410-2 ####[facility] LABORATORYCLIA [id number] [address] STATES OF [facility] WBC (Bld) [#/Vol] 11.98 10*3/uL High 3.70-11.00 [facility] Comment on above: Order Comment: Speci men Type: BLOOD SPECIMENOrdering Facility: [facility] Address: [address] [place] [address] Performed By: #### 5 8410-2 ####[facility] LABORATORYCLIA [id number] [address] THERAPY NTon 05-18-2024 THERAPY NT Normal [facility] URINALYSIS, REFLEX MICROSCOP ICon 05-18-2024 Bacteria LM.HPF (Urine sed) [#/Area] Rare Abnormal None Seen [facility] Comment on above: Order Comment: Speci men Type: URINE SPECIMENOrdering Facility: [facility] Address: [address] [place] [address] Performed By: #### L [id number] ####[facility] LABORATORYCLIA [id number] [address] OF [facility] Bilirubin Ql (U) Negative Normal Negative [facility] Comment on above: Order Comment: Speci men Type: URINE SPECIMENOrdering Facility: [facility] Address: [address] [place] [address] Performed By: #### L [id number] ####[facility] LABORATORYCLIA [id number] [place] [address] [place] Clarity (Unsp spec) Dense Turbid Abnormal Clear Akr [facility] Comment on above: Order Comment: Speci men Type: URINE SPECIMENOrdering Facility: [facility] Address: [address] [place] [address] Performed By: #### L [id number] ####[facility] LABORATORYCLIA [id number] [address] [place] Color (U) [place] Abnormal yellow [facility] Comment on above: Order Comment: Speci men Type: URINE SPECIMENOrdering Facility: [facility] Address: [address] [place] [address] Performed By: #### L [id number] ####[facility] LABORATORYCLIA [id number] [address] Glucose Test strip (U) [Mass/Vol] Negative Normal Trace, Negative [facility] Comment on above: Order Comment: Speci men Type: URINE SPECIMENOrdering Facility: [facility] Address: [address] [place] [address] Performed By: #### L [id number] ####[facility] LABORATORYCLIA [id number] [place] [address] [place] Hemoglobin Ql (U) 3+ Abnormal Negative, Trace [facility] Comment on above: Order Comment: Speci men Type: URINE SPECIMENOrdering Facility: [facility] Address: [address] [place] [address] Performed By: #### L [id number] ####[facility]ORATORYCLIA [id number] [address] [place] Ketones Ql (U) Negative Normal Negative, Trace [facility] Comment on above: Order Comment: Speci men Type: URINE SPECIMENOrdering Facility: [facility] Address: [address] [place] [address] Performed By: #### L [id number] ####[facility] LABORATORYCLIA [id number] [address] [place] Leukocyte esterase Test strip Ql (U) 500 Jarrett/uL Abnormal Negative, 25 [place]rett/uL [facility] Comment on above: Order Comment: Speci men Type: URINE SPECIMENOrdering Facility: [facility] Address: [address] [place] [address] Performed By: #### L [id number] ####[facility] LABORATORYCLIA [id number] [address] STATES [facility] Nitrite Ql (U) 2+ Abnormal Negative [facility] Comment on above: Order Comment: Speci men Type: URINE SPECIMENOrdering Facility: [facility] Address: [address] [place] [address] Performed By: #### L [id number] ####[facility] LABORATORYCLIA [id number] [address] pH (U) 6.5 [pH] Normal 5.0-8.0 [facility] Comment on above: Order Comment: Speci men Type: URINE SPECIMENOrdering Facility: [facility] Address: [address] [place] [address] Performed By: #### L [id number] ####[facility] LABORATORYCLIA [id number] [address] [place] Protein (U) [Mass/Vol] 2+ Abnormal Trace , Negative [facility] Comment on above: Order Comment: Speci men Type: URINE SPECIMENOrdering Facility: [facility] Address: [address] [place] [address] Performed By: #### L [id number] ####[facility] LABORATORYCLIA [id number] [place] [address] [place] RBC LM.HPF (Urine sed) [#/Area] /[HPF] Abnormal 0-3 /HPF [facility] Comment on above: Order Comment: Speci men Type: URINE SPECIMENOrdering Facility: [facility] Address: [address] [place] [address] Performed By: #### L [id number] ####[facility] LABORATORYCLIA [id number] [address] [place] Specific gravity (U) [Rel density] 1.014 Normal 1.005-1.030 [facility] Comment on above: Order Comment: Speci men Type: URINE SPECIMENOrdering Facility: [facility] Address: [address] [place] [address] Performed By: #### L [id number] ####[facility] LABORATORYCLIA [id number] [address] STATES OF [facility] Urobilinogen Ql (U) Normal Normal Normal [facility] Comment on above: Order Comment: Speci men Type: URINE SPECIMENOrdering Facility: [facility] Address: [address] [place] [address] Performed By: #### L [id number] ####[facility]ORATORYCLIA [id number] [address] STATES OF [facility] WBC LM.HPF (Urine sed) [#/Area] /[HPF] Abnormal 0-5 /HPF [facility] Comment on above: Order Comment: Speci men Type: URINE SPECIMENOrdering Facility: [facility] Address: [address] [place] [address] Performed By: #### L [id number] ####[facility] LABORATORYCLIA [id number] [place] [address] [place] US DVT LOWER BILon US DVT LOWER POLO Normal [facility] Urinalysis complete panel (U )on 05-18-2024 Bilirubin Ql (U) Normal [facility] Comment on above: Order Comment: Speci men Type: URINE SPECIMENOrdering Facility: [facility] Address: [address] [place] [address] Result Comment: Unab le to quantitate due to possible contamination. Performed By: #### 2 4356-8 ####[facility]ORATORYCLIA [id number] [address] [place] Clarity (Unsp spec) Turbid Abnormal Clear [facility] Comment on above: Order Comment: Speci men Type: URINE SPECIMENOrdering Facility: [facility] Address: [address] [place] [address] Performed By: #### 2 4356-8 ####[facility]ORATORYCLIA [id number] [place] [address] [place] Color (U) Yellow Normal Yellow [facility] Comment on above: Order Comment: Speci men Type: URINE SPECIMENOrdering Facility: [facility] Address: [address] [place] [address] Performed By: #### 2 4356-8 ####[facility]ORATORYCLIA [id number] [address] [place] Glucose Test strip (U) [Mass/Vol] Normal [facility] Comment on above: Order Comment: Speci men Type: URINE SPECIMENOrdering Facility: [facility] Address: [address] [place] [address] Result Comment: Unab le to quantitate due to possible contamination. Performed By: #### 2 4356-8 ####[facility]ORATORYCLIA [id number] [address] [place] Hemoglobin Ql (U) Normal [facility] Comment on above: Order Comment: Speci men Type: URINE SPECIMENOrdering Facility: [facility] Address: [address] [place] [address] Result Comment: Unab le to quantitate due to possible contamination. Performed By: #### 2 4356-8 ####[facility]ORATORYCLIA [id number] [address] [place] Ketones Ql (U) Normal [facility] Comment on above: Order Comment: Speci men Type: URINE SPECIMENOrdering Facility: [facility] Address: [address] [place] [address] Result Comment: Unab le to quantitate due to possible contamination. Performed By: #### 2 4356-8 ####[facility]ORATORYCLIA [id number] [address] [place] Leukocyte esterase Test strip Ql (U) Normal [facility] Comment on above: Order Comment: Speci men Type: URINE SPECIMENOrdering Facility: [facility] Address: [address] [place] [address] Result Comment: Unab le to quantitate due to possible contamination. Performed By: #### 2 4356-8 ####[facility]ORATORYCLIA [id number] [address] [place] Nitrite Ql (U) Normal [facility] Comment on above: Order Comment: Speci men Type: URINE SPECIMENOrdering Facility: [facility] Address: [address] [place] [address] Result Comment: Unab le to quantitate due to possible contamination. Performed By: #### 2 4356-8 ####[facility]ORATORYCLIA [id number] [address] [place] pH (U) Normal [facility] Comment on above: Order Comment: Speci men Type: URINE SPECIMENOrdering Facility: [facility] Address: [address] [place] [address] Result Comment: Unab le to quantitate due to possible contamination. Performed By: #### 2 4356-8 ####[facility] LABORATORYCLIA [id number] [address] Protein (U) [Mass/Vol] Normal [facility] Comment on above: Order Comment: Speci men Type: URINE SPECIMENOrdering Facility: [facility] Address: [address] [place] [address] Result Comment: Unab le to quantitate due to possible contamination. Performed By: #### 2 4356-8 ####[facility]ORATORYCLIA [id number] [address] [place] RBC LM.HPF (Urine sed) [#/Area] /[HPF] Abnormal 0-3 /HPF [facility] Comment on above: Order Comment: Speci men Type: URINE SPECIMENOrdering Facility: [facility] Address: [address] [place] [address] Performed By: #### 2 4356-8 ####[facility]ORATORYCLIA [id number] [address] [place] Specific gravity (U) [Rel density] Normal [facility] Comment on above: Order Comment: Speci men Type: URINE SPECIMENOrdering Facility: [facility] Address: [address] [place] [address] Result Comment: Unab le to quantitate due to possible contamination. Performed By: #### 2 4356-8 ####[facility]ORATORYCLIA [id number] [address] STATES [facility] Urobilinogen Ql (U) Normal [facility] Comment on above: Order Comment: Speci men Type: URINE SPECIMENOrdering Facility: [facility] Address: [address] [place] [address] Result Comment: Unab le to quantitate due to possible contamination. Performed By: #### 2 4356-8 ####[facility] LABORATORYCLIA [id number] [address] [place] WBC LM.HPF (Urine sed) [#/Area] /[HPF] Abnormal 0-5 /HPF [facility] Comment on above: Order Comment: Speci men Type: URINE SPECIMENOrdering Facility: [facility] Address: [address] [place] [address] Performed By: #### 2 4356-8 ####[facility] LABORATORYCLIA [id number] [place] [address] [place] Basic metabolic 2000 panelon 05-17-2024 Anion gap [Moles/Vol] 9 mmol/L Normal 8-15 [facility] Comment on above: Order Comment: Speci men Type: BLOOD SPECIMENOrdering Facility: [facility] Address: [address] [place] [address] Performed By: #### 2 4321-2 ####[facility]ORATORYCLIA [id number] [address] [place] Calcium [Mass/Vol] 7.7 mg/dL Low 8.5-10.2 [facility] Comment on above: Order Comment: Speci men Type: BLOOD SPECIMENOrdering Facility: [facility] Address: [address] [place] [address] Performed By: #### 2 4321-2 ####[facility] LABORATORYCLIA [id number] [address] OF [facility] Chloride [Moles/Vol] 100 mmol/L Normal 98-107 [facility] Comment on above: Order Comment: Speci men Type: BLOOD SPECIMENOrdering Facility: [facility] Address: [address] [place] [address] Performed By: #### 2 4321-2 ####[facility] LABORATORYCLIA [id number] [address] [place] CO2 [Moles/Vol] 27 mmol/L Normal 22-30 [facility] Comment on above: Order Comment: Speci men Type: BLOOD SPECIMENOrdering Facility: [facility] Address: [address] [place] [address] Performed By: #### 2 4321-2 ####[facility]ITAL[facility] [id number] [address] OF [facility] Creatinine [Mass/Vol] 0.38 mg/dL Low 0.58-0.96 [facility] Comment on above: Order Comment: Speci men Type: BLOOD SPECIMENOrdering Facility: [facility] Address: [address] [place] [address] Performed By: #### 2 4321-2 ####[facility] LABORATORYCLIA [id number] [address] Creatinine and Glomerular filtration rate.predicted panel (S/P/Bld) 100 mL/min/1.73m??? Normal >=60 [facility] Comment on above: Order Comment: Speci men Type: BLOOD SPECIMENOrdering Facility: [facility] Address: [address] [place] [address] Result Comment: Kaylene mated Glomerular Filtration Rate [...] actual GFR. Performed By: #### 2 4321-2 ####[facility]ORATORYCLIA [id number] [place] [address] [place] Glucose [Mass/Vol] 105 mg/dL High 74-99 [facility] Comment on above: Order Comment: Speci men Type: BLOOD SPECIMENOrdering Facility: [facility] Address: [address] [place] [address] Result Comment: The [place] [employer] (ADA) [...] 2016.39(Suppl 1). Performed By: #### 2 4321-2 ####[facility]ORATORYCLIA [id number] [place] [address] [place] Potassium [Moles/Vol] 4.5 mmol/L Normal 3.7-5.1 [facility] Comment on above: Order Comment: Helen rg Type: BLOOD SPECIMENOrdering Facility: [facility] Address: [address] [place] [address] Performed By: #### 2 4321-2 ####[facility]ATORYCLIA [id number] [place] [address] [place] Sodium [Moles/Vol] 136 mmol/L Normal 136-144 [facility] Comment on above: Order Comment: Speci men Type: BLOOD SPECIMENOrdering Facility: [facility] Address: [address] [place] [address] Performed By: #### 2 4321-2 ####[facility]ORATORYCLIA [id number] [place] [address] [place] Urea nitrogen [Mass/Vol] 16 mg/dL Normal 7-21 [facility] Comment on above: Order Comment: Speci men Type: BLOOD SPECIMENOrdering Facility: [facility] Address: [address] [place] [address] Performed By: #### 2 4321-2 ####[facility]ORATORYCLIA [id number] [address] [place] CASE MANAGEMon 05-17-2024 CASE MANAGEM Normal [facility] CBC panel Auto (Bld)on 05-17 Erythrocyte distribution width (RBC) [Ratio] 15.3 % High 11.5-15.0 [facility] Comment on above: Order Comment: Speci men Type: BLOOD SPECIMENOrdering Facility: [facility] Address: [address] [place] [address] Performed By: #### 5 8410-2 ####[facility] LABORATORYCLIA [id number] [address] [place] Hematocrit (Bld) [Volume fraction] 26.3 % Low 36.0-46.0 [facility] Comment on above: Order Comment: Speci men Type: BLOOD SPECIMENOrdering Facility: [facility] Address: [address] [place] [address] Performed By: #### 5 8410-2 ####[facility]ORATORYCLIA [id number] [address] [place] Hemoglobin (Bld) [Mass/Vol] 8.0 g/dL Low 11.5-15.5 [facility] Comment on above: Order Comment: Speci men Type: BLOOD SPECIMENOrdering Facility: [facility] Address: [address] [place] [address] Performed By: #### 5 8410-2 ####[facility]ATORYCLIA [id number] [address] [place] MCH (RBC) [Entitic mass] 29.1 pg Normal 26.0-34.0 [facility] Comment on above: Order Comment: Speci men Type: BLOOD SPECIMENOrdering Facility: [facility] Address: [address] [place] [address] Performed By: #### 5 8410-2 ####[facility]ORATORYCLIA [id number] [address] MCHC (RBC) [Mass/Vol] 30.4 g/dL Low 30.5-36.0 [facility] Comment on above: Order Comment: Speci men Type: BLOOD SPECIMENOrdering Facility: [facility] Address: [address] [place] [address] Performed By: #### 5 8410-2 ####[facility] LABORATORYCLIA [id number] [address] OF [facility] MCV (RBC) [Entitic vol] 95.6 fL Normal 80.0-100.0 [facility] Comment on above: Order Comment: Speci men Type: BLOOD SPECIMENOrdering Facility: [facility] Address: [address] [place] [address] Performed By: #### 5 8410-2 ####[facility]ATORYCLIA [id number] [address] OF [facility] Nucleated RBC (Bld) [#/Vol] 0.06 10*3/uL High <0.01 [facility] Comment on above: Order Comment: Speci men Type: BLOOD SPECIMENOrdering Facility: [facility] Address: [address] [place] [address] Performed By: #### 5 8410-2 ####[facility]ORATORYCLIA [id number] [address] STATES [facility] Platelet mean volume (Bld) [Entitic vol] 10.2 fL Normal 9.0-12.7 [facility] Comment on above: Order Comment: Speci men Type: BLOOD SPECIMENOrdering Facility: [facility] Address: [address] [place] [address] Performed By: #### 5 8410-2 ####[facility]ORATORYCLIA [id number] [address] [place] Platelets (Bld) [#/Vol] 386 10*3/uL Normal 150-400 [facility] Comment on above: Order Comment: Speci men Type: BLOOD SPECIMENOrdering Facility: [facility] Address: [address] [place] [address] Performed By: #### 5 8410-2 ####[facility] LABORATORYCLIA [id number] [place] [address] [place] RBC (Bld) [#/Vol] 2.75 10*6/uL Low 3.90-5.20 [facility] Comment on above: Order Comment: Speci men Type: BLOOD SPECIMENOrdering Facility: [facility] Address: [address] [place] [address] Performed By: #### 5 8410-2 ####[facility]ATORYCLIA [id number] [address] [place] WBC (Bld) [#/Vol] 9.63 10*3/uL Normal 3.70-11.00 [facility] Comment on above: Order Comment: Speci men Type: BLOOD SPECIMENOrdering Facility: [facility] Address: [address] [place] [address] Performed By: #### 5 8410-2 ####[facility]ORATORYCLIA [id number] [place] [address] [place] Basic metabolic 2000 panelon 05-16-2024 Anion gap [Moles/Vol] 9 mmol/L Normal 8-15 [facility] Comment on above: Order Comment: Speci men Type: BLOOD SPECIMENOrdering Facility: [facility] Address: [address] [place] [address] Performed By: #### 2 4321-2, 02376-4, 2777-1, 20103-9 ####[facility]ATORYCLIA [id number] [address] [place] Calcium [Mass/Vol] 8.1 mg/dL Low 8.5-10.2 [facility] Comment on above: Order Comment: Speci men Type: BLOOD SPECIMENOrdering Facility: [facility] Address: [address] [place] [address] Performed By: #### 2 4321-2, 90695-9, 2777-1, 33496-0 ####[facility]ORATORYCLIA [id number] [place] [address] [place] Chloride [Moles/Vol] 102 mmol/L Normal 98-107 [facility] Comment on above: Order Comment: Speci men Type: BLOOD SPECIMENOrdering Facility: [facility] Address: [address] [place] [address] Performed By: #### 2 4321-2, 56992-0, 2776-1, 08081-5 ####[facility]ORATORYCLIA [id number] [place] [id number] [place] [facility] CO2 [Moles/Vol] 27 mmol/L Normal 22-30 [facility] Comment on above: Order Comment: Speci men Type: BLOOD SPECIMENOrdering Facility: [facility] Address: [address] [place] [address] Performed By: #### 2 4321-2, , 277-1, 80955-8 ####[facility]ITALCLIA [id number] [address] STATES OF [facility] Creatinine [Mass/Vol] 0.40 mg/dL Low 0.58-0.96 [facility] Comment on above: Order Comment: Speci men Type: BLOOD SPECIMENOrdering Facility: [facility] Address: [address] [place] [address] Performed By: #### 2 4321-2, 66588-0, 277-1, 02865-5 ####[facility]ORATORYCLIA [id number] [place] [address] [facility] Creatinine and Glomerular filtration rate.predicted panel (S/P/Bld) 99 mL/min/1.73m??? Normal >=60 [facility] Comment on above: Order Comment: Speci men Type: BLOOD SPECIMENOrdering Facility: [facility] Address: [address] [place] [address] Result Comment: Kaylene mated Glomerular Filtration Rate [...] actual GFR. Performed By: #### 2 4321-2, 58794-2, 2777-1, 98404-4 ####[facility]ORATORYCLIA [id number] [place] [address] [place] Glucose [Mass/Vol] 93 mg/dL Normal 74-99 [facility] Comment on above: Order Comment: Speci ifrah Type: BLOOD SPECIMENOrdering Facility: [facility] Address: [address] [place] [address] Result Comment: The [employer] [employer] (ADA) [...] 2016.39(Suppl 1). Performed By: #### 2 4321-2, 45083-5, 2776-, 34024-1 ####[facility]ORATORYCLIA [id number] [place] [address] [place] Potassium [Moles/Vol] 3.8 mmol/L Normal 3.7-5.1 [facility] Comment on above: Order Comment: Helen rg Type: BLOOD SPECIMENOrdering Facility: [facility] Address: [address] [place] [address] Performed By: #### 2 4321-2, 76119-1, 2777-1, 00578-7 ####[facility]ATORYCLIA [id number] [address] [place] Sodium [Moles/Vol] 138 mmol/L Normal 136-144 [facility] Comment on above: Order Comment: Speci men Type: BLOOD SPECIMENOrdering Facility: [facility] Address: [address] [place] [address] Performed By: #### 2 4321-2, 89660-1, 2777-1, 68793-2 ####[facility]ATORYCLIA [id number] [address] [place] Urea nitrogen [Mass/Vol] 18 mg/dL Normal 7-21 [facility] Comment on above: Order Comment: Speci men Type: BLOOD SPECIMENOrdering Facility: [facility] Address: [address] [place] [address] Performed By: #### 2 4321-2, 47013-8, 2777-1, 72481-8 ####[facility]ATORYCLIA [id number] [address] STATES OF [facility] CBC panel Auto (Bld)on 05-16 Erythrocyte distribution width (RBC) [Ratio] 15.1 % High 11.5-15.0 [facility] Comment on above: Order Comment: Speci men Type: BLOOD SPECIMENOrdering Facility: [facility] Address: [address] [place] [address] Performed By: #### 5 8410-2 ####[facility]ORATORYCLIA [id number] [address] [place] Hematocrit (Bld) [Volume fraction] 28.4 % Low 36.0-46.0 [facility] Comment on above: Order Comment: Speci men Type: BLOOD SPECIMENOrdering Facility: [facility] Address: [address] [place] [address] Performed By: #### 5 8410-2 ####[facility]ORATORYCLIA [id number] [address] [place] Hemoglobin (Bld) [Mass/Vol] 8.9 g/dL Low 11.5-15.5 [facility] Comment on above: Order Comment: Speci men Type: BLOOD SPECIMENOrdering Facility: [facility] Address: [address] [place] [address] Performed By: #### 5 8410-2 ####[facility]ATORYCLIA [id number] [address] MCH (RBC) [Entitic mass] 29.7 pg Normal 26.0-34.0 [facility] Comment on above: Order Comment: Speci men Type: BLOOD SPECIMENOrdering Facility: [facility] Address: [address] [place] [address] Performed By: #### 5 8410-2 ####[facility]ORATORYCLIA [id number] [address] MCHC (RBC) [Mass/Vol] 31.3 g/dL Normal 30.5-36.0 [facility] Comment on above: Order Comment: Speci men Type: BLOOD SPECIMENOrdering Facility: [facility] Address: [address] [place] [address] Performed By: #### 5 8410-2 ####[facility]ORATORYCLIA [id number] [address] MCV (RBC) [Entitic vol] 94.7 fL Normal 80.0-100.0 [facility] Comment on above: Order Comment: Speci men Type: BLOOD SPECIMENOrdering Facility: [facility] Address: [address] [place] [address] Performed By: #### 5 8410-2 ####[facility]ATORYCLIA [id number] [address] Nucleated RBC (Bld) [#/Vol] 0.08 10*3/uL High <0.01 [facility] Comment on above: Order Comment: Speci men Type: BLOOD SPECIMENOrdering Facility: [facility] Address: [address] [place] [address] Performed By: #### 5 8410-2 ####[facility]ORATORYCLIA [id number] [place] [address] Platelet mean volume (Bld) [Entitic vol] 10.1 fL Normal 9.0-12.7 [facility] Comment on above: Order Comment: Speci men Type: BLOOD SPECIMENOrdering Facility: [facility] Address: [address] [place] [address] Performed By: #### 5 8410-2 ####[facility]ORATORYCLIA [id number] [place] [address] [place] Platelets (Bld) [#/Vol] 509 10*3/uL High 150-400 [facility] Comment on above: Order Comment: Speci men Type: BLOOD SPECIMENOrdering Facility: [facility] Address: [address] [place] [address] Performed By: #### 5 8410-2 ####[facility]ATORYCLIA [id number] [address] [place] RBC (Bld) [#/Vol] 3.00 10*6/uL Low 3.90-5.20 [facility] Comment on above: Order Comment: Speci men Type: BLOOD SPECIMENOrdering Facility: [facility] Address: [address] [place] [address] Performed By: #### 5 8410-2 ####[facility]ATORYCLIA [id number] [address] [place] WBC (Bld) [#/Vol] 11.08 10*3/uL High 3.70-11.00 [facility] Comment on above: Order Comment: Speci men Type: BLOOD SPECIMENOrdering Facility: [facility] Address: [address] [place] [address] Performed By: #### 5 8410-2 ####[facility]ATORYCLIA [id number] [address] Hepatic function 2000 panelo n 05-16-2024 Albumin [Mass/Vol] 2.4 g/dL Low 3.9-4.9 [facility] Comment on above: Order Comment: Speci men Type: BLOOD SPECIMENOrdering Facility: [facility] Address: [address] [place] [address] Performed By: #### 2 4321-2, 90382-2, 2777-1, 34495-5 ####[facility]ATORYCLIA [id number] [address] ALP [Catalytic activity/Vol] 119 U/L Normal 34-123 [facility] Comment on above: Order Comment: Speci men Type: BLOOD SPECIMENOrdering Facility: [facility] Address: [address] [place] [address] Performed By: #### 2 4321-2, 00882-2, 2776-1, 51847-9 ####[facility]ORATORYCLIA [id number] [address] ALT With P-5'-P [Catalytic activity/Vol] 15 U/L Normal 7-38 [facility] Comment on above: Order Comment: Speci men Type: BLOOD SPECIMENOrdering Facility: [facility] Address: [address] [place] [address] Performed By: #### 2 4321-2, 25577-9, 277-1, 11512-4 ####[facility]ATORYCLIA [id number] [address] AST With P-5'-P [Catalytic activity/Vol] 15 U/L Normal 13-35 [facility] Comment on above: Order Comment: Speci men Type: BLOOD SPECIMENOrdering Facility: [facility] Address: [address] [place] [address] Performed By: #### 2 4321-2, 81366-0, 277-1, 38071-4 ####[facility]ATORYCLIA [id number] [address] Bilirubin [Mass/Vol] 0.4 mg/dL Normal 0.2-1.3 [facility] Comment on above: Order Comment: Speci men Type: BLOOD SPECIMENOrdering Facility: [facility] Address: [address] [place] [address] Performed By: #### 2 4321-2, 27641-7, 2777-1, 83352-5 ####[facility]ORATORYCLIA [id number] [place] [address] [place] Bilirubin.conjugated [Mass/Vol] mg/dL Normal <0.2 [facility] Comment on above: Order Comment: Speci men Type: BLOOD SPECIMENOrdering Facility: [facility] Address: [address] [place] [address] Performed By: #### 2 4321-2, 89409-8, 2777-1, 40146-6 ####[facility] LABORATORYCLIA [id number] [place] [id number] [place] Protein [Mass/Vol] 5.4 g/dL Low 6.3-8.0 [facility] Comment on above: Order Comment: Speci men Type: BLOOD SPECIMENOrdering Facility: [facility] Address: [address] [place] [address] Performed By: #### 2 4321-2, 63791-0, 2777-1, 82029-6 ####[facility]ORATORYCLIA [id number] [place] [address] [place] Magnesium SerPl-mCncon 05-16 Magnesium [Mass/Vol] 1.9 mg/dL Normal 1.7-2.3 [facility] Comment on above: Order Comment: Speci men Type: BLOOD SPECIMENOrdering Facility: [facility] Address: [address] [place] [address] Performed By: #### 2 4321-2, 35985-1, 2777-1, 77826-4 ####[facility]ORATORYCLIA [id number] [place] [id number] [place] Phosphate SerPl-mCncon 05-16 Phosphate [Mass/Vol] 3.5 mg/dL Normal 2.7-4.8 [facility] Comment on above: Order Comment: Speci men Type: BLOOD SPECIMENOrdering Facility: [facility] Address: [address] [place] [address] Performed By: #### 2 4321-2, 07612-1, 2777-1, 05653-4 ####[facility] LABORATORYCLIA [id number] [place] [address] [place] THERAPY NTon 05-16-2024 THERAPY NT Normal [facility] Basic metabolic 2000 panelon 05-15-2024 Anion gap [Moles/Vol] 7 mmol/L Low 8-15 [facility] Comment on above: Order Comment: Speci men Type: BLOOD SPECIMENOrdering Facility: [facility] Address: [address] [place], [place] [address] Performed By: #### 2 777-1, 25783-5, ####[facility] LABORATORYCLIA [id number] [place] [address] [place] Calcium [Mass/Vol] 8.2 mg/dL Low 8.5-10.2 [facility] Comment on above: Order Comment: Speci men Type: BLOOD SPECIMENOrdering Facility: [facility] Address: [address] [place], [place] [address] Performed By: #### 2 777-1, 81342-0, ####[facility]ORATORYCLIA [id number] [place] [address] [place] Chloride [Moles/Vol] 107 mmol/L Normal 98-107 [facility] Comment on above: Order Comment: Speci men Type: BLOOD SPECIMENOrdering Facility: [facility] Address: [address] [place] [id number] Performed By: #### 2 777-1, 30079-0, ####[facility]ORATORYCLIA [id number] [place] [address] [place] CO2 [Moles/Vol] 27 mmol/L Normal 22-30 [facility] Comment on above: Order Comment: Speci men Type: BLOOD SPECIMENOrdering Facility: [facility] Address: [address] [place] [id number] Performed By: #### 2 777-1, 46734-4, ####[facility] HOSPITALIA [id number] [place] [address] [place] [facility] Creatinine [Mass/Vol] 0.37 mg/dL Low 0.58-0.96 [facility] Comment on above: Order Comment: Specmigel rg Type: BLOOD SPECIMENOrdering Facility: [facility] Address: [address] [place] [address] Performed By: #### 2 777-1, , ####[facility] HOSPITALIA [id number] [place] [address] [facility] Creatinine and Glomerular filtration rate.predicted panel (S/P/Bld) 101 mL/min/1.73m??? Normal >=60 [facility] Comment on above: Order Comment: Helen [facility] Type: BLOOD SPECIMENOrdering Facility: [facility] Address: [address] [place] [address] Result Comment: Kaylene mated Glomerular Filtration Rate [...] GFR. Performed By: #### 2 777-1, , ####[facility]OSPITALIA [id number] [place] [id number] [place] [facility] Glucose [Mass/Vol] 164 mg/dL High 74-99 [facility] Comment on above: Order Comment: Specmigel [facility] Type: BLOOD SPECIMENOrdering Facility: [facility] Address: [address] [place] [address] Result Comment: The [employer] (ADA) [...] 2016.39(Suppl 1). Performed By: #### 2 777-1, 36389-6, ####[facility] LABORATORYCLIA [id number] [place] [address] [place] Potassium [Moles/Vol] 4.2 mmol/L Normal 3.7-5.1 [facility] Comment on above: Order Comment: Helen rg Type: BLOOD SPECIMENOrdering Facility: [facility] Address: [address] [place] [address] Performed By: #### 2 777-1, 17500-6, ####[facility] LABORATORYCLIA [id number] [place] [address] [place] Sodium [Moles/Vol] 141 mmol/L Normal 136-144 [facility] Comment on above: Order Comment: Helen rg Type: BLOOD SPECIMENOrdering Facility: [facility] Address: [address] [place] [address] Performed By: #### 2 777-1, 17832-6, ####[facility] LABORATORYCLIA [id number] [place] [address] [place] Urea nitrogen [Mass/Vol] 21 mg/dL Normal 7-21 [facility] Comment on above: Order Comment: Bernardoi men Type: BLOOD SPECIMENOrdering Facility: [facility] Address: [address] [place] [address] Performed By: #### 2 777-1, , ####[facility]ORATORYCLIA [id number] [place] [id number] [place] CASE MANAGEMon 05-15-2024 CASE MANAGEM Normal [facility] CASE MANAGEM Normal [facility] CASE MANAGEM Normal [facility] CBC panel Auto (Bld)on 05-15 Erythrocyte distribution width (RBC) [Ratio] 15.2 % High 11.5-15.0 [facility] Comment on above: Order Comment: Speci men Type: BLOOD SPECIMENOrdering Facility: [facility] Address: [address] [place] [address] Performed By: #### 5 8410-2 ####[facility] LABORATORYCLIA [id number] [address] STATES OF [facility] Hematocrit (Bld) [Volume fraction] 28.5 % Low 36.0-46.0 [facility] Comment on above: Order Comment: Speci men Type: BLOOD SPECIMENOrdering Facility: [facility] Address: [address] [place] [address] Performed By: #### 5 8410-2 ####[facility]ORATORYCLIA [id number] [address] STATES OF [facility] Hemoglobin (Bld) [Mass/Vol] 8.7 g/dL Low 11.5-15.5 [facility] Comment on above: Order Comment: Speci men Type: BLOOD SPECIMENOrdering Facility: [facility] Address: [address] [place] [address] Performed By: #### 5 8410-2 ####[facility]ORATORYCLIA [id number] [address] STATES [place] MCH (RBC) [Entitic mass] 29.7 pg Normal 26.0-34.0 [facility] Comment on above: Order Comment: Speci men Type: BLOOD SPECIMENOrdering Facility: [facility] Address: [address] [place] [address] Performed By: #### 5 8410-2 ####[facility]ORATORYCLIA [id number] [address] [place] MCHC (RBC) [Mass/Vol] 30.5 g/dL Normal 30.5-36.0 [facility] Comment on above: Order Comment: Speci men Type: BLOOD SPECIMENOrdering Facility: [facility] Address: [address] [place] [address] Performed By: #### 5 8410-2 ####[facility]ORATORYCLIA [id number] [address] MCV (RBC) [Entitic vol] 97.3 fL Normal 80.0-100.0 [facility] Comment on above: Order Comment: Speci men Type: BLOOD SPECIMENOrdering Facility: [facility] Address: [address] [place] [address] Performed By: #### 5 8410-2 ####[facility]ORATORYCLIA [id number] [address] OF [place] Nucleated RBC (Bld) [#/Vol] 0.07 10*3/uL High <0.01 [facility] Comment on above: Order Comment: Speci men Type: BLOOD SPECIMENOrdering Facility: [facility] Address: [address] [place] [address] Performed By: #### 5 8410-2 ####[facility]ORATORYCLIA [id number] [address] Platelet mean volume (Bld) [Entitic vol] 10.2 fL Normal 9.0-12.7 [facility] Comment on above: Order Comment: Speci men Type: BLOOD SPECIMENOrdering Facility: [facility] Address: [address] [place] [address] Performed By: #### 5 8410-2 ####[facility]ORATORYCLIA [id number] [address] Platelets (Bld) [#/Vol] 485 10*3/uL High 150-400 [facility] Comment on above: Order Comment: Speci men Type: BLOOD SPECIMENOrdering Facility: [facility] Address: [address] [place] [address] Performed By: #### 5 8410-2 ####[facility]ORATORYCLIA [id number] [address] [place] RBC (Bld) [#/Vol] 2.93 10*6/uL Low 3.90-5.20 [facility] Comment on above: Order Comment: Speci men Type: BLOOD SPECIMENOrdering Facility: [facility] Address: [address] [place] [address] Performed By: #### 5 8410-2 ####[facility]ORATORYCLIA [id number] [address] STATES [place] WBC (Bld) [#/Vol] 11.61 10*3/uL High 3.70-11.00 [facility] Comment on above: Order Comment: Speci men Type: BLOOD SPECIMENOrdering Facility: [facility] Address: [address] [place] [address] Performed By: #### 5 8410-2 ####[facility]ORATORYCLIA [id number] [address] OF [facility] CONSULT PROGon 05-15-2024 CONSULT PROG Normal [facility] Magnesium [facility]Pl[facility] Magnesium [Mass/Vol] 2.0 mg/dL Normal 1.7-2.3 [facility] Comment on above: Order Comment: Speci men Type: BLOOD SPECIMENOrdering Facility: [facility] Address: [address] [place] [address] Performed By: #### 2 777-1, 60735-2, ####[facility]ORATORYCLIA [id number] [address] [place] NM HEPATOBILIARY WO RXon NM HEPATOBILIARY WO RX Normal [facility] NUTRITIONon 05-15-2024 NUTRITION Normal [facility] Phosphate SerPl-mCncon 05-15 Phosphate [Mass/Vol] 2.0 mg/dL Low 2.7-4.8 [facility] Comment on above: Order Comment: Speci men Type: BLOOD SPECIMENOrdering Facility: [facility] Address: [address] [place] [address] Performed By: #### 2 777-1, 63345-3, ####[facility]ATORYCLIA [id number] [place] [address] [place] Basic metabolic 2000 panelon 05-14-2024 Anion gap [Moles/Vol] 7 mmol/L Low 8-15 [facility] Comment on above: Order Comment: Speci men Type: BLOOD SPECIMENOrdering Facility: [facility] Address: [address] [place] [address] Performed By: #### 2 4321-2, 2776-05, ####[facility]ATORYCLIA [id number] [place] [address] [place] Calcium [Mass/Vol] 8.0 mg/dL Low 8.5-10.2 [facility] Comment on above: Order Comment: Speci men Type: BLOOD SPECIMENOrdering Facility: [facility] Address: [address] [place] [address] Performed By: #### 2 4321-2, 2776-05, ####[facility]ORATORYCLIA [id number] [place] [address] [place] Chloride [Moles/Vol] 110 mmol/L High 98-107 [facility] Comment on above: Order Comment: Speci men Type: BLOOD SPECIMENOrdering Facility: [facility] Address: [address] [place] [address] Performed By: #### 2 4321-2, 2776-05, ####[facility]ATORYCLIA [id number] [place] [address] [place] CO2 [Moles/Vol] 26 mmol/L Normal 22-30 [facility] Comment on above: Order Comment: Speci men Type: BLOOD SPECIMENOrdering Facility: [facility] Address: [address] [place] [address] Performed By: #### 2 4321-2, 2776-05, ####[facility]ATORYCLIA [id number] [place] [address] [place] Creatinine [Mass/Vol] 0.47 mg/dL Low 0.58-0.96 [facility] Comment on above: Order Comment: Helen rg Type: BLOOD SPECIMENOrdering Facility: [facility] Address: [address] [place] [id number] Performed By: #### 2 4321-2, 2777-1, ####[facility]ORATORYCLIA [id number] [place] [address] [place] Creatinine and Glomerular filtration rate.predicted panel (S/P/Bld) 95 mL/min/1.73m??? Normal >=60 [facility] Comment on above: Order Comment: Helen rg Type: BLOOD SPECIMENOrdering Facility: [facility] Address: [address] [place] [address] Result Comment: Kaylene mated Glomerular Filtration Rate [...] GFR. Performed By: #### 2 4321-2, 2777-, ####[facility]ORATORYCLIA [id number] [place] [id number] [place] Glucose [Mass/Vol] 224 mg/dL High 74-99 [facility] Comment on above: Order Comment: Helen gr Type: BLOOD SPECIMENOrdering Facility: [facility] Address: [address] [place] [address] Result Comment: The [employer] [employer] (ADA) [...] 1). Performed By: #### 2 4321-2, 277-, ####[facility]ORATORYCLIA [id number] [place] [address] [place] Potassium [Moles/Vol] 4.2 mmol/L Normal 3.7-5.1 [facility] Comment on above: Order Comment: Speci men Type: BLOOD SPECIMENOrdering Facility: [facility] Address: [address] [place] [address] Performed By: #### 2 4321-2, 2776-05, ####[facility]ORATORYCLIA [id number] [address] STATES OF [facility] Sodium [Moles/Vol] 143 mmol/L Normal 136-144 [facility] Comment on above: Order Comment: Speci men Type: BLOOD SPECIMENOrdering Facility: [facility] Address: [address] [place] [address] Performed By: #### 2 4321-2, 2776-05, ####[facility]ATORYCLIA [id number] [address] STATES [place] Urea nitrogen [Mass/Vol] 21 mg/dL Normal 7-21 [facility] Comment on above: Order Comment: Speci men Type: BLOOD SPECIMENOrdering Facility: [facility] Address: [address] [place] [address] Performed By: #### 2 4321-2, 2776-05, ####[facility]ATORYCLIA [id number] [place] [id number] [place] CBC panel Auto (Bld)on 05-14 Erythrocyte distribution width (RBC) [Ratio] 15.3 % High 11.5-15.0 [facility] Comment on above: Order Comment: Speci men Type: BLOOD SPECIMENOrdering Facility: [facility] Address: [address] [place] [address] Performed By: #### 5 8410-2 ####[facility]ORATORYCLIA [id number] [address] Hematocrit (Bld) [Volume fraction] 24.1 % Low 36.0-46.0 [facility] Comment on above: Order Comment: Speci men Type: BLOOD SPECIMENOrdering Facility: [facility] Address: [address] [place] [address] Performed By: #### 5 8410-2 ####[facility]ATORYCLIA [id number] [address] Hemoglobin (Bld) [Mass/Vol] 7.5 g/dL Low 11.5-15.5 [facility] Comment on above: Order Comment: Speci men Type: BLOOD SPECIMENOrdering Facility: [facility] Address: [address] [place] [address] Performed By: #### 5 8410-2 ####[facility]ORATORYCLIA [id number] [address] MCH (RBC) [Entitic mass] 29.6 pg Normal 26.0-34.0 [facility] Comment on above: Order Comment: Speci men Type: BLOOD SPECIMENOrdering Facility: [facility] Address: [address] [place] [address] Performed By: #### 5 8410-2 ####[facility]ATORYCLIA [id number] [address] STATES [place] MCHC (RBC) [Mass/Vol] 31.1 g/dL Normal 30.5-36.0 [facility] Comment on above: Order Comment: Speci men Type: BLOOD SPECIMENOrdering Facility: [facility] Address: [address] [place] [address] Performed By: #### 5 8410-2 ####[facility]ATORYCLIA [id number] [address] MCV (RBC) [Entitic vol] 95.3 fL Normal 80.0-100.0 [facility] Comment on above: Order Comment: Speci men Type: BLOOD SPECIMENOrdering Facility: [facility] Address: [address] [place] [address] Performed By: #### 5 8410-2 ####[facility]ATORYCLIA [id number] [address] STATES [place] Nucleated RBC (Bld) [#/Vol] 0.02 10*3/uL High <0.01 [facility] Comment on above: Order Comment: Speci men Type: BLOOD SPECIMENOrdering Facility: [facility] Address: [address] [place] [address] Performed By: #### 5 8410-2 ####[facility]ORATORYCLIA [id number] [address] [place] Platelet mean volume (Bld) [Entitic vol] 10.1 fL Normal 9.0-12.7 [facility] Comment on above: Order Comment: Speci men Type: BLOOD SPECIMENOrdering Facility: [facility] Address: [address] [place] [address] Performed By: #### 5 8410-2 ####[facility]ORATORYCLIA [id number] [address] [place] Platelets (Bld) [#/Vol] 409 10*3/uL High 150-400 [facility] Comment on above: Order Comment: Speci men Type: BLOOD SPECIMENOrdering Facility: [facility] Address: [address] [place] [address] Performed By: #### 5 8410-2 ####[facility]ORATORYCLIA [id number] [place] [address] [place] RBC (Bld) [#/Vol] 2.53 10*6/uL Low 3.90-5.20 [facility] Comment on above: Order Comment: Speci men Type: BLOOD SPECIMENOrdering Facility: [facility] Address: [address] [place] [address] Performed By: #### 5 8410-2 ####[facility]ORATORYCLIA [id number] [address] [place] WBC (Bld) [#/Vol] 7.33 10*3/uL Normal 3.70-11.00 [facility] Comment on above: Order Comment: Speci men Type: BLOOD SPECIMENOrdering Facility: [facility] Address: [address] [place] [address] Performed By: #### 5 8410-2 ####[facility]ATORYCLIA [id number] [address] Magnesium SerPl-nc 05-14 Magnesium [Mass/Vol] 2.0 mg/dL Normal 1.7-2.3 [facility] Comment on above: Order Comment: Speci men Type: BLOOD SPECIMENOrdering Facility: [facility] Address: [address] [place] [address] Performed By: #### 2 4321-2, 2777-1, 52010-0 ####[facility]ATORYCLIA [id number] [address] Phosphate SerPl-mCncon 05-14 Phosphate [Mass/Vol] 2.9 mg/dL Normal 2.7-4.8 [facility] Comment on above: Order Comment: Speci men Type: BLOOD SPECIMENOrdering Facility: [facility] Address: [address] [place] [address] Performed By: #### 2 4321-2, 2777-1, 81675-2 ####[facility]ATORYCLIA [id number] [address] [place] THERAPY NTon 05-14-2024 THERAPY NT Normal [facility] Basic metabolic 2000 panelon 05-13-2024 Anion gap [Moles/Vol] 12 mmol/L Normal 8-15 [facility] Comment on above: Order Comment: Speci men Type: BLOOD SPECIMENOrdering Facility: [facility] Address: [address] [place] [address] Performed By: #### 2 4321-2, 98613-3, 2776-1 ####[facility]ORATORYCLIA [id number] [address] OF [place] Calcium [Mass/Vol] 8.3 mg/dL Low 8.5-10.2 [facility] Comment on above: Order Comment: Speci men Type: BLOOD SPECIMENOrdering Facility: [facility] Address: [address] [place] [address] Performed By: #### 2 4321-2, , 2776-05 ####[facility]ORATORYCLIA [id number] [place] [address] [place] Chloride [Moles/Vol] 107 mmol/L Normal 98-107 [facility] Comment on above: Order Comment: Speci men Type: BLOOD SPECIMENOrdering Facility: [facility] Address: [address] [place] [address] Performed By: #### 2 4321-2, , 2776-05 ####[facility]ORATORYCLIA [id number] [address] [place] CO2 [Moles/Vol] 19 mmol/L Low 22-30 [facility] Comment on above: Order Comment: Speci men Type: BLOOD SPECIMENOrdering Facility: [facility] Address: [address] [place] [address] Performed By: #### 2 4321-2, , 2776-05 ####[facility]ATORYCLIA [id number] [address] [place] Creatinine [Mass/Vol] 0.56 mg/dL Low 0.58-0.96 [facility] Comment on above: Order Comment: Speci men Type: BLOOD SPECIMENOrdering Facility: [facility] Address: [address] [place] [address] Performed By: #### 2 4321-2, , 2776-05 ####[facility]ATORYCLIA [id number] [address] [place] Creatinine and Glomerular filtration rate.predicted panel (S/P/Bld) 91 mL/min/1.73m??? Normal >=60 [facility] Comment on above: Order Comment: Speci men Type: BLOOD SPECIMENOrdering Facility: [facility] Address: [address] [place] [address] Result Comment: Kaylene mated Glomerular Filtration Rate [...] Performed By: #### 2 4321-2, , 2776-05 ####[facility]ORATORYCLIA [id number] [place] [address] [place] Glucose [Mass/Vol] 213 mg/dL High 74-99 [facility] Comment on above: Order Comment: Helen rg Type: BLOOD SPECIMENOrdering Facility: [facility] Address: [address] [place] [address] Result Comment: The [employer] (ADA) [...] Performed By: #### 2 4321-2, , 2776-05 ####[facility]ORATORYCLIA [id number] [place] [id number] [place] Potassium [Moles/Vol] 3.4 mmol/L Low 3.7-5.1 [facility] Comment on above: Order Comment: Helen rg Type: BLOOD SPECIMENOrdering Facility: [facility] Address: [address] [place] [address] Performed By: #### 2 4321-2, , 2776-05 ####[facility]ORATORYCLIA [id number] [place] [id number] [place] Sodium [Moles/Vol] 138 mmol/L Normal 136-144 [facility] Comment on above: Order Comment: Speci men Type: BLOOD SPECIMENOrdering Facility: [facility] Address: [address] [place] [address] Performed By: #### 2 4321-2, , 2776-05 ####[facility]ATORYCLIA [id number] [place] [id number] [place] Urea nitrogen [Mass/Vol] 17 mg/dL Normal 7-21 [facility] Comment on above: Order Comment: Speci men Type: BLOOD SPECIMENOrdering Facility: [facility] Address: [address] [place] [address] Performed By: #### 2 4321-2, , 2776-05 ####[facility]ATORYCLIA [id number] [address] [place] CBC panel Auto (Bld)on 05-13 Erythrocyte distribution width (RBC) [Ratio] 15.2 % High 11.5-15.0 [facility] Comment on above: Order Comment: Speci men Type: BLOOD SPECIMENOrdering Facility: [facility] Address: [address] [place] [address] Performed By: #### 5 8410-2 ####[facility]ATORYCLIA [id number] [address] STATES OF [facility] Hematocrit (Bld) [Volume fraction] 24.2 % Low 36.0-46.0 [facility] Comment on above: Order Comment: Speci men Type: BLOOD SPECIMENOrdering Facility: [facility] Address: [address] [place] [address] Performed By: #### 5 8410-2 ####[facility]ORATORYCLIA [id number] [place] [address] [place] Hemoglobin (Bld) [Mass/Vol] 7.6 g/dL Low 11.5-15.5 [facility] Comment on above: Order Comment: Speci men Type: BLOOD SPECIMENOrdering Facility: [facility] Address: [address] [place] [address] Performed By: #### 5 8410-2 ####[facility]ATORYCLIA [id number] [address] [place] MCH (RBC) [Entitic mass] 30.2 pg Normal 26.0-34.0 [facility] Comment on above: Order Comment: Speci men Type: BLOOD SPECIMENOrdering Facility: [facility] Address: [address] [place] [address] Performed By: #### 5 8410-2 ####[facility]ATORYCLIA [id number] [address] [place] MCHC (RBC) [Mass/Vol] 31.4 g/dL Normal 30.5-36.0 [facility] Comment on above: Order Comment: Speci men Type: BLOOD SPECIMENOrdering Facility: [facility] Address: [address] [place] [address] Performed By: #### 5 8410-2 ####[facility]ATORYCLIA [id number] [address] [place] MCV (RBC) [Entitic vol] 96.0 fL Normal 80.0-100.0 [facility] Comment on above: Order Comment: Speci men Type: BLOOD SPECIMENOrdering Facility: [facility] Address: [address] [place] [address] Performed By: #### 5 8410-2 ####[facility]ATORYCLIA [id number] [address] [place] Nucleated RBC (Bld) [#/Vol] 0.03 10*3/uL High <0.01 [facility] Comment on above: Order Comment: Speci men Type: BLOOD SPECIMENOrdering Facility: [facility] Address: [address] [place] [address] Performed By: #### 5 8410-2 ####[facility]ATORYCLIA [id number] [place] [address] [place] Platelet mean volume (Bld) [Entitic vol] 10.3 fL Normal 9.0-12.7 [facility] Comment on above: Order Comment: Speci men Type: BLOOD SPECIMENOrdering Facility: [facility] Address: [address] [place] [address] Performed By: #### 5 8410-2 ####[facility]ATORYCLIA [id number] [place] [address] [place] Platelets (Bld) [#/Vol] 392 10*3/uL Normal 150-400 [facility] Comment on above: Order Comment: Speci men Type: BLOOD SPECIMENOrdering Facility: [facility] Address: [address] [place] [address] Performed By: #### 5 8410-2 ####[facility]ATORYCLIA [id number] [address] [place] RBC (Bld) [#/Vol] 2.52 10*6/uL Low 3.90-5.20 [facility] Comment on above: Order Comment: Speci men Type: BLOOD SPECIMENOrdering Facility: [facility] Address: [address] [place] [address] Performed By: #### 5 8410-2 ####[facility] LABORATORYCLIA [id number] [address] [place] WBC (Bld) [#/Vol] 8.49 10*3/uL Normal 3.70-11.00 [facility] Comment on above: Order Comment: Speci men Type: BLOOD SPECIMENOrdering Facility: [facility] Address: [address] [place] [address] Performed By: #### 5 8410-2 ####[facility] LABORATORYCLIA [id number] [address] [place] Magnesium [facility] 05-13 Magnesium [Mass/Vol] 1.9 mg/dL Normal 1.7-2.3 [facility] Comment on above: Order Comment: Speci men Type: BLOOD SPECIMENOrdering Facility: [facility] Address: [address] [place] [address] Performed By: #### 2 4321-2, , 2776-05 ####[facility] LABORATORYCLIA [id number] [place] [address] [place] Phosphate SerPl-mCncon 05-13 Phosphate [Mass/Vol] 2.2 mg/dL Low 2.7-4.8 [facility] Comment on above: Order Comment: Speci men Type: BLOOD SPECIMENOrdering Facility: [facility] Address: [address] [place] [address] Performed By: #### 2 4321-2, , 2776-05 ####[facility] LABORATORYCLIA [id number] [place] [address] [place] XR ABDOMEN 1V SUPINEon 05-13 XR ABDOMEN 1V SUPINE Normal [facility] Basic metabolic 2000 panelon 05-12-2024 Anion gap [Moles/Vol] 14 mmol/L Normal 8-15 [facility] Comment on above: Order Comment: Speci men Type: BLOOD SPECIMENOrdering Facility: [facility] Address: [address] [place] [address] Performed By: #### 2 4321-2 ####[facility] LABORATORYCLIA [id number] [place] [address] [place] Calcium [Mass/Vol] 8.2 mg/dL Low 8.5-10.2 [facility] Comment on above: Order Comment: Speci men Type: BLOOD SPECIMENOrdering Facility: [facility] Address: [address] [place] [address] Performed By: #### 2 4321-2 ####[facility] LABORATORYCLIA [id number] [place] [address] [place] Chloride [Moles/Vol] 105 mmol/L Normal 98-107 [facility] Comment on above: Order Comment: Speci men Type: BLOOD SPECIMENOrdering Facility: [facility] Address: [address] [place] [address] Performed By: #### 2 4321-2 ####[facility] LABORATORYCLIA [id number] [place] [id number] [place] CO2 [Moles/Vol] 17 mmol/L Low 22-30 [facility] Comment on above: Order Comment: Speci men Type: BLOOD SPECIMENOrdering Facility: [facility] Address: [address] [place] [address] Performed By: #### 2 4321-2 ####[facility] LABORATORYCLIA [id number] [address] [place] Creatinine [Mass/Vol] 0.54 mg/dL Low 0.58-0.96 [facility] Comment on above: Order Comment: Speci men Type: BLOOD SPECIMENOrdering Facility: [facility] Address: [address] [place] [address] Performed By: #### 2 4321-2 ####[facility] LABORATORYCLIA [id number] [address] Creatinine and Glomerular filtration rate.predicted panel (S/P/Bld) 92 mL/min/1.73m??? Normal >=60 [facility] Comment on above: Order Comment: Speci men Type: BLOOD SPECIMENOrdering Facility: [facility] Address: [address] [place] [address] Result Comment: Kaylene mated Glomerular Filtration Rate [...] actual GFR. Performed By: #### 2 4321-2 ####[facility] LABORATORYCLIA [id number] [address] [place] Glucose [Mass/Vol] 227 mg/dL High 74-99 [facility] Comment on above: Order Comment: Speci men Type: BLOOD SPECIMENOrdering Facility: [facility] Address: [address] [place] [address] Result Comment: The [place] [employer] (ADA) [...] 2016.39(Suppl 1). Performed By: #### 2 4321-2 ####[facility] LABORATORYCLIA [id number] [place] [address] [place] Potassium [Moles/Vol] 3.7 mmol/L Normal 3.7-5.1 [facility] Comment on above: Order Comment: Bernardoi men Type: BLOOD SPECIMENOrdering Facility: [facility] Address: [address] [place] [address] Performed By: #### 2 4321-2 ####[facility] LABORATORYCLIA [id number] [place] [address] [place] Sodium [Moles/Vol] 136 mmol/L Normal 136-144 [facility] Comment on above: Order Comment: Speci men Type: BLOOD SPECIMENOrdering Facility: [facility] Address: [address] [place] [address] Performed By: #### 2 4321-2 ####[facility] LABORATORYCLIA [id number] [place] [address] [place] Urea nitrogen [Mass/Vol] 16 mg/dL Normal 7-21 [facility] Comment on above: Order Comment: Speci men Type: BLOOD SPECIMENOrdering Facility: [facility] Address: [address] [place] [address] Performed By: #### 2 1-2 ####[facility] LABORATORYCLIA [id number] [place] [address] [place] Anion gap [Moles/Vol] 15 mmol/L Normal 8-15 [facility] Comment on above: Order Comment: Speci men Type: BLOOD SPECIMENOrdering Facility: [facility] Address: [address] [place] [address] Performed By: #### 2 4321-2, , 2776-05 ####[facility] LABORATORYCLIA [id number] [place] [address] [place] Calcium [Mass/Vol] 7.7 mg/dL Low 8.5-10.2 [facility] Comment on above: Order Comment: Speci men Type: BLOOD SPECIMENOrdering Facility: [facility] Address: [address] [place] [address] Performed By: #### 2 4320-2, , 2776-05 ####[facility] LABORATORYCLIA [id number] [place] [address] [place] Chloride [Moles/Vol] 108 mmol/L High 98-107 [facility] Comment on above: Order Comment: Speci men Type: BLOOD SPECIMENOrdering Facility: [facility] Address: [address] [place] [address] Performed By: #### 2 4321-2, , 2776-05 ####[facility] LABORATORYCLIA [id number] [place] [id number] [place] CO2 [Moles/Vol] 17 mmol/L Low 22-30 [facility] Comment on above: Order Comment: Speci men Type: BLOOD SPECIMENOrdering Facility: [facility] Address: [address] [place] [address] Performed By: #### 2 4321-2, , 2776-05 ####[facility]ORATORYCLIA [id number] [place] [address] [place] Creatinine [Mass/Vol] 0.62 mg/dL Normal 0.58-0.96 [facility] Comment on above: Order Comment: Helen rg Type: BLOOD SPECIMENOrdering Facility: [facility] Address: [address] [place] [address] Performed By: #### 2 4321-2, , 2776-05 ####[facility] LABORATORYCLIA [id number] [address] OF [facility] Creatinine and Glomerular filtration rate.predicted panel (S/P/Bld) 89 mL/min/1.73m??? Normal >=60 [facility] Comment on above: Order Comment: Helen rg Type: BLOOD SPECIMENOrdering Facility: [facility] Address: [address] [place] [address] Result Comment: Kaylene mated Glomerular Filtration Rate [...] Performed By: #### 2 4321-2, , 2776-05 ####[facility]ORATORYCLIA [id number] [place] [address] [place] Glucose [Mass/Vol] 140 mg/dL High 74-99 [facility] Comment on above: Order Comment: Helen rg Type: BLOOD SPECIMENOrdering Facility: [facility] Address: [address] [place] [address] Result Comment: The [place] [employer] (ADA) [...] Performed By: #### 2 4321-2, , 2776-05 ####[facility] LABORATORYCLIA [id number] [place] [address] [place] Potassium [Moles/Vol] 3.4 mmol/L Low 3.7-5.1 [facility] Comment on above: Order Comment: Speci men Type: BLOOD SPECIMENOrdering Facility: [facility] Address: [address] [place] [address] Performed By: #### 2 4321-2, , 2776-05 ####[facility] LABORATORYCLIA [id number] [address] STATES OF [facility] Sodium [Moles/Vol] 140 mmol/L Normal 136-144 [facility] Comment on above: Order Comment: Speci men Type: BLOOD SPECIMENOrdering Facility: [facility] Address: [address] [place] [address] Performed By: #### 2 4321-2, , 2776-05 ####[facility] LABORATORYCLIA [id number] [address] [place] Urea nitrogen [Mass/Vol] 16 mg/dL Normal 7-21 [facility] Comment on above: Order Comment: Speci men Type: BLOOD SPECIMENOrdering Facility: [facility] Address: [address] [place] [address] Performed By: #### 2 4321-2, , 2776-05 ####[facility] LABORATORYCLIA [id number] [place] [id number] [place] CASE MANAGEMon 05-12-2024 CASE MANAGEM Normal [facility] CBC panel Auto (Bld)on 05-12 Erythrocyte distribution width (RBC) [Ratio] 15.4 % High 11.5-15.0 [facility] Comment on above: Order Comment: Speci men Type: BLOOD SPECIMENOrdering Facility: [facility] Address: [address] [place] [address] Performed By: #### 5 8410-2 ####[facility] LABORATORYCLIA [id number] [address] Hematocrit (Bld) [Volume fraction] 25.1 % Low 36.0-46.0 [facility] Comment on above: Order Comment: Speci men Type: BLOOD SPECIMENOrdering Facility: [facility] Address: [address] [place] [address] Performed By: #### 5 8410-2 ####[facility] LABORATORYCLIA [id number] [address] OF [facility] Hemoglobin (Bld) [Mass/Vol] 8.0 g/dL Low 11.5-15.5 [facility] Comment on above: Order Comment: Speci men Type: BLOOD SPECIMENOrdering Facility: [facility] Address: [address] [place] [address] Performed By: #### 5 8410-2 ####[facility]ORATORYCLIA [id number] [address] MCH (RBC) [Entitic mass] 30.4 pg Normal 26.0-34.0 [facility] Comment on above: Order Comment: Speci men Type: BLOOD SPECIMENOrdering Facility: [facility] Address: [address] [place] [address] Performed By: #### 5 8410-2 ####[facility]ORATORYCLIA [id number] [address] OF [facility] MCHC (RBC) [Mass/Vol] 31.9 g/dL Normal 30.5-36.0 [facility] Comment on above: Order Comment: Speci men Type: BLOOD SPECIMENOrdering Facility: [facility] Address: [address] [place] [address] Performed By: #### 5 8410-2 ####[facility] LABORATORYCLIA [id number] [address] MCV (RBC) [Entitic vol] 95.4 fL Normal 80.0-100.0 [facility] Comment on above: Order Comment: Speci men Type: BLOOD SPECIMENOrdering Facility: [facility] Address: [address] [place] [address] Performed By: #### 5 8410-2 ####[facility]ORATORYCLIA [id number] [place] [address] [place] Platelet mean volume (Bld) [Entitic vol] 10.3 fL Normal 9.0-12.7 [facility] Comment on above: Order Comment: Speci men Type: BLOOD SPECIMENOrdering Facility: [facility] Address: [address] [place] [address] Performed By: #### 5 8410-2 ####[facility]ATORYCLIA [id number] [place] [address] [place] Platelets (Bld) [#/Vol] 373 10*3/uL Normal 150-400 [facility] Comment on above: Order Comment: Speci men Type: BLOOD SPECIMENOrdering Facility: [facility] Address: [address] [place] [address] Performed By: #### 5 8410-2 ####[facility]ORATORYCLIA [id number] [place] [address] [place] RBC (Bld) [#/Vol] 2.63 10*6/uL Low 3.90-5.20 [facility] Comment on above: Order Comment: Speci men Type: BLOOD SPECIMENOrdering Facility: [facility] Address: [address] [place] [address] Performed By: #### 5 8410-2 ####[facility]ORATORYCLIA [id number] [place] [address] [place] WBC (Bld) [#/Vol] 8.48 10*3/uL Normal 3.70-11.00 [facility] Comment on above: Order Comment: Speci men Type: BLOOD SPECIMENOrdering Facility: [facility] Address: [address] [place] [address] Performed By: #### 5 8410-2 ####[facility] LABORATORYCLIA [id number] [address] [place] Erythrocyte distribution width (RBC) [Ratio] 15.4 % High 11.5-15.0 [facility] Comment on above: Order Comment: Speci men Type: BLOOD SPECIMENOrdering Facility: [facility] Address: [address] [place] [address] Performed By: #### 5 8410-2 ####[facility]ORATORYCLIA [id number] [address] STATES OF [facility] Hematocrit (Bld) [Volume fraction] 22.9 % Low 36.0-46.0 [facility] Comment on above: Order Comment: Speci men Type: BLOOD SPECIMENOrdering Facility: [facility] Address: [address] [place] [address] Performed By: #### 5 8410-2 ####[facility] LABORATORYCLIA [id number] [address] OF [facility] Hemoglobin (Bld) [Mass/Vol] 7.2 g/dL Low 11.5-15.5 [facility] Comment on above: Order Comment: Speci men Type: BLOOD SPECIMENOrdering Facility: [facility] Address: [address] [place] [address] Performed By: #### 5 8410-2 ####[facility] LABORATORYCLIA [id number] [address] [place] MCH (RBC) [Entitic mass] 30.4 pg Normal 26.0-34.0 [facility] Comment on above: Order Comment: Speci men Type: BLOOD SPECIMENOrdering Facility: [facility] Address: [address] [place] [address] Performed By: #### 5 8410-2 ####[facility] LABORATORYCLIA [id number] [address] [place] MCHC (RBC) [Mass/Vol] 31.4 g/dL Normal 30.5-36.0 [facility] Comment on above: Order Comment: Speci men Type: BLOOD SPECIMENOrdering Facility: [facility] Address: [address] [place] [address] Performed By: #### 5 8410-2 ####[facility]ORATORYCLIA [id number] [address] MCV (RBC) [Entitic vol] 96.6 fL Normal 80.0-100.0 [facility] Comment on above: Order Comment: Speci men Type: BLOOD SPECIMENOrdering Facility: [facility] Address: [address] [place] [address] Performed By: #### 5 8410-2 ####[facility]ORATORYCLIA [id number] [address] Nucleated RBC (Bld) [#/Vol] 10*3/uL Normal <0.01 [facility] Comment on above: Order Comment: Speci men Type: BLOOD SPECIMENOrdering Facility: [facility] Address: [address] [place] [address] Performed By: #### 5 8410-2 ####[facility]ORATORYCLIA [id number] [address] Platelet mean volume (Bld) [Entitic vol] 10.6 fL Normal 9.0-12.7 [facility] Comment on above: Order Comment: Speci men Type: BLOOD SPECIMENOrdering Facility: [facility] Address: [address] [place] [address] Performed By: #### 5 8410-2 ####[facility] LABORATORYCLIA [id number] [address] Platelets (Bld) [#/Vol] 286 10*3/uL Normal 150-400 [facility] Comment on above: Order Comment: Speci men Type: BLOOD SPECIMENOrdering Facility: [facility] Address: [address] [place] [address] Performed By: #### 5 8410-2 ####[facility] LABORATORYCLIA [id number] [address] [place] RBC (Bld) [#/Vol] 2.37 10*6/uL Low 3.90-5.20 [facility] Comment on above: Order Comment: Speci men Type: BLOOD SPECIMENOrdering Facility: [facility] Address: [address] [place] [address] Performed By: #### 5 8410-2 ####[facility]ORATORYCLIA [id number] [place] [address] [place] [facility] WBC (Bld) [#/Vol] 9.72 10*3/uL Normal 3.70-11.00 [facility] Comment on above: Order Comment: Speci men Type: BLOOD SPECIMENOrdering Facility: [facility] Address: [address] [place] [address] Performed By: #### 5 8410-2 ####[facility] LABORATORYCLIA [id number] [address] [place] CONSULTon 05-12-2024 CONSULT Normal [facility] Calcium.ionized [Moles/Vol]o n 05-12-2024 Calcium.ionized (BldV) [Mass/Vol] 1.15 mmol/L Normal 1.08-1.30 [facility] Comment on above: Order Comment: Speci men Type: BLOOD SPECIMENOrdering Facility: [facility] Address: [address] [place] [address] Performed By: #### 1 995-0 ####[facility]ORATORYCLIA [id number] [address] Calcium.ionized adjusted to pH 7.4 (Bld) [Moles/Vol] 1.14 mmol/L Normal 1.08-1.30 [facility] Comment on above: Order Comment: Speci men Type: BLOOD SPECIMENOrdering Facility: [facility] Address: [address] [place] [address] Performed By: #### 1 995-0 ####[facility]ORATORYCLIA [id number] [address] [place] ECG COMPLETEon 05-12-2024 ECG COMPLETE Normal [facility] Magnesium SerPl-mCncon 05-12 Magnesium [Mass/Vol] 1.7 mg/dL Normal 1.7-2.3 [facility] Comment on above: Order Comment: Speci men Type: BLOOD SPECIMENOrdering Facility: [facility] Address: [address] [place] [address] Performed By: #### 2 4321-2, 22569-7, 2777-1 ####[facility] LABORATORYCLIA [id number] [address] [place] NURSING PROGon 05-12-2024 NURSING PROG Normal [facility] NUTRITIONon 05-12-2024 NUTRITION Normal [facility] Phosphate [facility] Phosphate [Mass/Vol] 2.9 mg/dL Normal 2.7-4.8 [facility] Comment on above: Order Comment: Speci men Type: BLOOD SPECIMENOrdering Facility: [facility] Address: [address] [place] [address] Performed By: #### 2 4321-2, 32426-7, 2777-1 ####[facility]ORATORYCLIA [id number] [address] [place] THERAPY NTon 05-12-2024 THERAPY NT Normal [facility] ARTERIAL BLOOD GASESon 05-11 Base deficit (BldA) [Moles/Vol] -5 mmol/L Low -2-0 [facility] Comment on above: Order Comment: Speci men Type: ARTERIAL BLOOD SPECIMENOrdering Facility: [facility] Address: [address] [place] [address] Performed By: #### A LLBG ####[facility] LABORATORYCLIA [id number] [address] [place] Body temperature 98.6 [degF] Normal [facility] Comment on above: Order Comment: Speci men Type: ARTERIAL BLOOD SPECIMENOrdering Facility: [facility] Address: [address] [place] [address] Performed By: #### A LLBG ####[facility] LABORATORYCLIA [id number] [address] STATES OF [facility] Calcium.ionized (BldV) [Mass/Vol] 1.16 mmol/L Normal 1.08-1.30 [facility] Comment on above: Order Comment: Speci men Type: ARTERIAL BLOOD SPECIMENOrdering Facility: [facility] Address: [address] [place] [address] Performed By: #### A LLBG ####[facility] LABORATORYCLIA [id number] [address] Calcium.ionized adjusted to pH 7.4 (BldA) [Moles/Vol] 1.19 mmol/L Normal 1.08-1.30 [facility] Comment on above: Order Comment: Speci men Type: ARTERIAL BLOOD SPECIMENOrdering Facility: [facility] Address: [address] [place] [address] Performed By: #### A LLBG ####[facility] LABORATORYCLIA [id number] [address] OF [facility] Carboxyhemoglobin (BldA) [Mass fraction] 1.5 % Normal 0.0-2.0 [facility] Comment on above: Order Comment: Speci men Type: ARTERIAL BLOOD SPECIMENOrdering Facility: [facility] Address: [address] [place] [address] Result Comment: Carb oxyhemoglobin Reference Range for Smokers: 2.0-8.0% Performed By: #### A LLBG ####[facility] LABORATORYCLIA [id number] [address] [place] Chloride [Moles/Vol] 107 mmol/L High 97-105 [facility] Comment on above: Order Comment: Speci men Type: ARTERIAL BLOOD SPECIMENOrdering Facility: [facility] Address: [address] [place] [address] Performed By: #### A LLBG ####[facility] LABORATORYCLIA [id number] [address] [place] CO2 (Bld) [Partial pressure] 26 mm Hg Low 36-46 [facility] Comment on above: Order Comment: Speci men Type: ARTERIAL BLOOD SPECIMENOrdering Facility: [facility] Address: [address] [place] [address] Performed By: #### A LLBG ####[facility] LABORATORYCLIA [id number] [address] [place] Glucose [Mass/Vol] 178 mg/dL High 60-105 [facility] Comment on above: Order Comment: Speci men Type: ARTERIAL BLOOD SPECIMENOrdering Facility: [facility] Address: [address] [place] [address] Performed By: #### A LLBG ####[facility] LABORATORYCLIA [id number] [place] [address] [place] HCO3 (Bld) [Moles/Vol] 18 mmol/L Low 22-26 [facility] Comment on above: Order Comment: Speci men Type: ARTERIAL BLOOD SPECIMENOrdering Facility: [facility] Address: [address] [place] [address] Performed By: #### A LLBG ####[facility] LABORATORYCLIA [id number] [address] [place] Hematocrit (Bld) [Volume fraction] 25.7 % Low 36.0-46.0 [facility] Comment on above: Order Comment: Speci men Type: ARTERIAL BLOOD SPECIMENOrdering Facility: [facility] Address: [address] [place] [address] Performed By: #### A LLBG ####MEDICAL [facility]ATORYCLIA [id number] [place] [address] [place] Hemoglobin (Bld) [Mass/Vol] 8.3 g/dL Low 11.5-15.5 [facility] Comment on above: Order Comment: Speci men Type: ARTERIAL BLOOD SPECIMENOrdering Facility: [facility] Address: [address] [place] [address] Performed By: #### A LLBG ####[facility] LABORATORYCLIA [id number] [place] [address] [place] Lactate [Moles/Vol] 1.0 mmol/L Normal 0.5-2.2 [facility] Comment on above: Order Comment: Speci men Type: ARTERIAL BLOOD SPECIMENOrdering Facility: [facility] Address: [address] [place] [address] Performed By: #### A LLBG ####[facility] LABORATORYCLIA [id number] [address] [place] Methemoglobin (Bld) [Mass fraction] 1.1 % Normal 0.0-1.5 [facility] Comment on above: Order Comment: Speci men Type: ARTERIAL BLOOD SPECIMENOrdering Facility: [facility] Address: [address] [place] [address] Performed By: #### A LLBG ####[facility] LABORATORYCLIA [id number] [address] O2 THERAPY RA=Room Air Normal [facility] Comment on above: Order Comment: Speci men Type: ARTERIAL BLOOD SPECIMENOrdering Facility: [facility] Address: [address] [place] [address] Performed By: #### A LLBG ####[facility] LABORATORYCLIA [id number] [address] [place] Oxygen (Bld) [Partial pressure] 100 mm Hg High 85-95 [facility] Comment on above: Order Comment: Speci men Type: ARTERIAL BLOOD SPECIMENOrdering Facility: [facility] Address: [address] [place] [address] Performed By: #### A LLBG ####[facility] LABORATORYCLIA [id number] [address] [place] Oxyhemoglobin (BldA) [Mass fraction] 95 % Normal 95-98 [facility] Comment on above: Order Comment: Speci men Type: ARTERIAL BLOOD SPECIMENOrdering Facility: [facility] Address: [address] [place] [address] Performed By: #### A LLBG ####[facility] LABORATORYCLIA [id number] [place] [address] [place] pH (Bld) 7.46 [pH] High 7.35-7.45 [facility] Comment on above: Order Comment: Speci men Type: ARTERIAL BLOOD SPECIMENOrdering Facility: [facility] Address: [address] [place] [address] Performed By: #### A LLBG ####[facility] LABORATORYCLIA [id number] [address] PO2 / FIO2 RATIO 476 mmHg Normal >300 [facility] Comment on above: Order Comment: Speci men Type: ARTERIAL BLOOD SPECIMENOrdering Facility: [facility] Address: [address] [place] [address] Performed By: #### A LLBG ####[facility] LABORATORYCLIA [id number] [address] [place] Potassium [Moles/Vol] 3.9 mmol/L Normal 3.5-5.0 [facility] Comment on above: Order Comment: Speci men Type: ARTERIAL BLOOD SPECIMENOrdering Facility: [facility] Address: [address] [place] [address] Performed By: #### A LLBG ####[facility] LABORATORYCLIA [id number] [address] [place] Sodium [Moles/Vol] 136 mmol/L Normal 136-144 [facility] Comment on above: Order Comment: Speci men Type: ARTERIAL BLOOD SPECIMENOrdering Facility: [facility] Address: [address] [place] [address] Performed By: #### A LLBG ####[facility] LABORATORYCLIA [id number] [place] [address] [place] Basic metabolic 2000 panelon 05-11-2024 Anion gap [Moles/Vol] 13 mmol/L Normal 8-15 [facility] Comment on above: Order Comment: Speci men Type: BLOOD SPECIMENOrdering Facility: [facility] Address: [address] [place] [address] Performed By: #### 2 4321-2, 31320-0, 2777-1 ####[facility]ORATORYCLIA [id number] [place] [address] [place] Calcium [Mass/Vol] 8.3 mg/dL Low 8.5-10.2 [facility] Comment on above: Order Comment: Speci men Type: BLOOD SPECIMENOrdering Facility: [facility] Address: [address] [place] [address] Performed By: #### 2 4321-2, , 2776-05 ####[facility] LABORATORYCLIA [id number] [place] [address] [place] Chloride [Moles/Vol] 104 mmol/L Normal 98-107 [facility] Comment on above: Order Comment: Speci men Type: BLOOD SPECIMENOrdering Facility: [facility] Address: [address] [place] [address] Performed By: #### 2 4321-2, , 2776-05 ####[facility] LABORATORYCLIA [id number] [place] [address] [place] CO2 [Moles/Vol] 21 mmol/L Low 22-30 [facility] Comment on above: Order Comment: Speci men Type: BLOOD SPECIMENOrdering Facility: [facility] Address: [address] [place] [address] Performed By: #### 2 4321-2, , 2776-05 ####[facility] LABORATORYCLIA [id number] [place] [address] [place] Creatinine [Mass/Vol] 0.54 mg/dL Low 0.58-0.96 [facility] Comment on above: Order Comment: Speci men Type: BLOOD SPECIMENOrdering Facility: [facility] Address: [address] [place] [address] Performed By: #### 2 4321-2, , 2776-05 ####[facility] LABORATORYCLIA [id number] [address] [place] Creatinine and Glomerular filtration rate.predicted panel (S/P/Bld) 92 mL/min/1.73m??? Normal >=60 [facility] Comment on above: Order Comment: Helen rg Type: BLOOD SPECIMENOrdering Facility: [facility] Address: [address] [place] [id number] Result Comment: Kaylene mated Glomerular Filtration Rate [...] actual GFR. Performed By: #### 2 4321-2, 51812-3, 2776-05 ####[facility] LABORATORYCLIA [id number] [place] [id number] [place] Glucose [Mass/Vol] 134 mg/dL High 74-99 [facility] Comment on above: Order Comment: Helen rg Type: BLOOD SPECIMENOrdering Facility: [facility] Address: [address] [place] [address] Result Comment: The [place] [employer] (ADA) [...] Performed By: #### 2 4321-2, , 2776-05 ####[facility]ORATORYCLIA [id number] [place] [id number] [place] Potassium [Moles/Vol] 3.8 mmol/L Normal 3.7-5.1 [facility] Comment on above: Order Comment: Helen rg Type: BLOOD SPECIMENOrdering Facility: [facility] Address: [address] [place] [address] Performed By: #### 2 4321-2, 40198-7, 27771 ####[facility] LABORATORYCLIA [id number] [place] [address] [place] [facility] Sodium [Moles/Vol] 138 mmol/L Normal 136-144 [facility] Comment on above: Order Comment: Speci men Type: BLOOD SPECIMENOrdering Facility: [facility] Address: [address] [place] [address] Performed By: #### 2 4321-2, , 2776-05 ####[facility] LABORATORYCLIA [id number] [place] [id number] [place] Urea nitrogen [Mass/Vol] 9 mg/dL Normal 7-21 [facility] Comment on above: Order Comment: Speci men Type: BLOOD SPECIMENOrdering Facility: [facility] Address: [address] [place] [address] Performed By: #### 2 4321-2, , 27711-28 ####[facility] LABORATORYCLIA [id number] [address] [place] CASE MANAGEMon 05-11-2024 CASE MANAGEM Normal [facility] CBC panel Auto (Bld)on 05-11 Erythrocyte distribution width (RBC) [Ratio] 15.2 % High 11.5-15.0 [facility] Comment on above: Order Comment: Speci men Type: BLOOD SPECIMENOrdering Facility: [facility] Address: [address] [place] [address] Performed By: #### 5 8410-2 ####[facility] LABORATORYCLIA [id number] [address] STATES OF [facility] Hematocrit (Bld) [Volume fraction] 26.1 % Low 36.0-46.0 [facility] Comment on above: Order Comment: Speci men Type: BLOOD SPECIMENOrdering Facility: [facility] Address: [address] [place] [address] Performed By: #### 5 8410-2 ####[facility] LABORATORYCLIA [id number] [address] OF [facility] Hemoglobin (Bld) [Mass/Vol] 8.5 g/dL Low 11.5-15.5 [facility] Comment on above: Order Comment: Speci men Type: BLOOD SPECIMENOrdering Facility: [facility] Address: [address] [place] [address] Performed By: #### 5 8410-2 ####[facility] LABORATORYCLIA [id number] [address] MCH (RBC) [Entitic mass] 30.1 pg Normal 26.0-34.0 [facility] Comment on above: Order Comment: Speci men Type: BLOOD SPECIMENOrdering Facility: [facility] Address: [address] [place] [address] Performed By: #### 5 8410-2 ####[facility] LABORATORYCLIA [id number] [address] MCHC (RBC) [Mass/Vol] 32.6 g/dL Normal 30.5-36.0 [facility] Comment on above: Order Comment: Speci men Type: BLOOD SPECIMENOrdering Facility: [facility] Address: [address] [place] [address] Performed By: #### 5 8410-2 ####[facility]ATORYCLIA [id number] [address] MCV (RBC) [Entitic vol] 92.6 fL Normal 80.0-100.0 [facility] Comment on above: Order Comment: Speci men Type: BLOOD SPECIMENOrdering Facility: [facility] Address: [address] [place] [address] Performed By: #### 5 8410-2 ####[facility] LABORATORYCLIA [id number] [address] Nucleated RBC (Bld) [#/Vol] 0.03 10*3/uL High <0.01 [facility] Comment on above: Order Comment: Speci men Type: BLOOD SPECIMENOrdering Facility: [facility] Address: [address] [place] [address] Performed By: #### 5 8410-2 ####[facility]ORATORYCLIA [id number] [place] [address] [place] Platelet mean volume (Bld) [Entitic vol] 10.8 fL Normal 9.0-12.7 [facility] Comment on above: Order Comment: Speci men Type: BLOOD SPECIMENOrdering Facility: [facility] Address: [address] [place] [address] Performed By: #### 5 8410-2 ####[facility] LABORATORYCLIA [id number] [address] [place] Platelets (Bld) [#/Vol] 316 10*3/uL Normal 150-400 [facility] Comment on above: Order Comment: Speci men Type: BLOOD SPECIMENOrdering Facility: [facility] Address: [address] [place] [address] Performed By: #### 5 8410-2 ####[facility]ATORYCLIA [id number] [place] [address] [place] RBC (Bld) [#/Vol] 2.82 10*6/uL Low 3.90-5.20 [facility] Comment on above: Order Comment: Speci men Type: BLOOD SPECIMENOrdering Facility: [facility] Address: [address] [place] [address] Performed By: #### 5 8410-2 ####[facility]ORATORYCLIA [id number] [address] [place] WBC (Bld) [#/Vol] 12.73 10*3/uL High 3.70-11.00 [facility] Comment on above: Order Comment: Speci men Type: BLOOD SPECIMENOrdering Facility: [facility] Address: [address] [place] [address] Performed By: #### 5 8410-2 ####[facility]ORATORYCLIA [id number] [address] [place] Calcium.ionized [Moles/Vol]o n 05-11-2024 Calcium.ionized (BldV) [Mass/Vol] 1.11 mmol/L Normal 1.08-1.30 [facility] Comment on above: Order Comment: Speci men Type: BLOOD SPECIMENOrdering Facility: [facility] Address: [address] [place] [address] Performed By: #### 1 995-0 ####[facility]ORATORYCLIA [id number] [place] [id number] [place] [facility] Calcium.ionized adjusted to pH 7.4 (Bld) [Moles/Vol] 1.13 mmol/L Normal 1.08-1.30 [facility] Comment on above: Order Comment: Speci men Type: BLOOD SPECIMENOrdering Facility: [facility] Address: [address] [place] [address] Performed By: #### 1 995-0 ####[facility] LABORATORYCLIA [id number] [address] [place] Gas and Carbon monoxide pane l (BldV)on 05-11-2024 BASE DEFICIT, VENOUS >-1 Normal -2-0 [facility] Comment on above: Order Comment: Speci men Type: VENOUS BLOOD SPECIMENOrdering Facility: [facility] Address: [address] [place] [address] Performed By: #### 2 4344-4 ####[facility] LABORATORYCLIA [id number] [place] [id number] [place] Body temperature 97.7 [degF] Normal [facility] Comment on above: Order Comment: Speci men Type: VENOUS BLOOD SPECIMENOrdering Facility: [facility] Address: [address] [place] [address] Performed By: #### 2 4344-4 ####[facility] LABORATORYCLIA [id number] [address] [place] Calcium.ionized (BldV) [Mass/Vol] 1.13 mmol/L Normal 1.08-1.30 [facility] Comment on above: Order Comment: Speci men Type: VENOUS BLOOD SPECIMENOrdering Facility: [facility] Address: [address] [place] [address] Performed By: #### 2 4344-4 ####[facility]ORATORYCLIA [id number] [place] [address] [facility] Calcium.ionized adjusted to pH 7.4 (BldA) [Moles/Vol] 1.16 mmol/L Normal 1.08-1.30 [facility] Comment on above: Order Comment: Speci men Type: VENOUS BLOOD SPECIMENOrdering Facility: [facility] Address: [address] [place] [address] Performed By: #### 2 4344-4 ####[facility] LABORATORYCLIA [id number] [address] [place] Carboxyhemoglobin (BldV) [Mass fraction] 1.2 % Normal 0.0-2.0 [facility] Comment on above: Order Comment: Speci men Type: VENOUS BLOOD SPECIMENOrdering Facility: [facility] Address: [address] [place] [address] Result Comment: Carb oxyhemoglobin Reference Range for Smokers: 2.0-8.0% Performed By: #### 2 4344-4 ####[facility] LABORATORYCLIA [id number] [address] [place] Chloride [Moles/Vol] 106 mmol/L High 97-105 [facility] Comment on above: Order Comment: Speci men Type: VENOUS BLOOD SPECIMENOrdering Facility: [facility] Address: [address] [place] [address] Performed By: #### 2 4344-4 ####[facility]ORATORYCLIA [id number] [place] [address] [place] CO2 (BldV) [Partial pressure] 34 mm[Hg] Low 42-55 [facility] Comment on above: Order Comment: Speci men Type: VENOUS BLOOD SPECIMENOrdering Facility: [facility] Address: [address] [place] [address] Performed By: #### 2 4344-4 ####[facility] LABORATORYCLIA [id number] [address] STATES OF [facility] CO2 adjusted to patient's actual temperature (BldV) [Partial pressure] 33 mmHg Low 42-55 [facility] Comment on above: Order Comment: Speci men Type: VENOUS BLOOD SPECIMENOrdering Facility: [facility] Address: [address] [place] [address] Performed By: #### 2 4344-4 ####[facility] LABORATORYCLIA [id number] [address] [place] Glucose [Mass/Vol] 158 mg/dL High 60-105 [facility] Comment on above: Order Comment: Speci men Type: VENOUS BLOOD SPECIMENOrdering Facility: [facility] Address: [address] [place] [address] Performed By: #### 2 4344-4 ####[facility]ORATORYCLIA [id number] [address] [place] HCO3 (Bld) [Moles/Vol] 23 mmol/L Low 24-28 [facility] Comment on above: Order Comment: Speci men Type: VENOUS BLOOD SPECIMENOrdering Facility: [facility] Address: [address] [place] [address] Performed By: #### 2 4344-4 ####[facility] LABORATORYCLIA [id number] [address] [place] Hematocrit (Bld) [Volume fraction] 26.6 % Low 36.0-46.0 [facility] Comment on above: Order Comment: Speci men Type: VENOUS BLOOD SPECIMENOrdering Facility: [facility] Address: [address] [place] [address] Performed By: #### 2 4344-4 ####[facility] LABORATORYCLIA [id number] [address] [place] Hemoglobin (Bld) [Mass/Vol] 8.6 g/dL Low 11.5-15.5 [facility] Comment on above: Order Comment: Speci men Type: VENOUS BLOOD SPECIMENOrdering Facility: [facility] Address: [address] [place] [address] Performed By: #### 2 4344-4 ####[facility] LABORATORYCLIA [id number] [place] [id number] [place] Lactate [Moles/Vol] 1.0 mmol/L Normal 0.5-2.2 [facility] Comment on above: Order Comment: Speci men Type: VENOUS BLOOD SPECIMENOrdering Facility: [facility] Address: [address] [place] [address] Performed By: #### 2 4344-4 ####[facility]ORATORYCLIA [id number] [address] [place] Methemoglobin (Bld) [Mass fraction] 0.4 % Normal 0.0-1.5 [facility] Comment on above: Order Comment: Speci men Type: VENOUS BLOOD SPECIMENOrdering Facility: [facility] Address: [address] [place] [address] Performed By: #### 2 4344-4 ####[facility] LABORATORYCLIA [id number] [address] O2 THERAPY RA=Room Air Normal [facility] Comment on above: Order Comment: Speci men Type: VENOUS BLOOD SPECIMENOrdering Facility: [facility] Address: [address] [place] [address] Performed By: #### 2 4344-4 ####[facility] LABORATORYCLIA [id number] [address] [place] Oxygen (BldV) [Partial pressure] 76 mm[Hg] High 35-45 [facility] Comment on above: Order Comment: Speci men Type: VENOUS BLOOD SPECIMENOrdering Facility: [facility] Address: [address] [place] [address] Performed By: #### 2 4344-4 ####[facility]ORATORYCLIA [id number] [address] [place] Oxygen adjusted to patient's actual temperature (BldV) [Partial pressure] 74 mmHg High 35-45 [facility] Comment on above: Order Comment: Speci men Type: VENOUS BLOOD SPECIMENOrdering Facility: [facility] Address: [address] [place] [address] Performed By: #### 2 4344-4 ####[facility]ORATORYCLIA [id number] [address] [place] Oxygen saturation in Venous blood 93 % High 60-85 [facility] Comment on above: Order Comment: Speci men Type: VENOUS BLOOD SPECIMENOrdering Facility: [facility] Address: [address] [place] [address] Performed By: #### 2 4344-4 ####[facility] LABORATORYCLIA [id number] [address] Oxyhemoglobin (BldV) [Mass fraction] 92 % High 60-85 [facility] Comment on above: Order Comment: Speci men Type: VENOUS BLOOD SPECIMENOrdering Facility: [facility] Address: [address] [place] [address] Performed By: #### 2 4344-4 ####[facility]ORATORYCLIA [id number] [place] [address] [place] pH (BldV) 7.45 [pH] High 7.32-7.42 [facility] Comment on above: Order Comment: Speci men Type: VENOUS BLOOD SPECIMENOrdering Facility: [facility] Address: [address] [place] [address] Performed By: #### 2 4344-4 ####[facility]ORATORYCLIA [id number] [address] [place] pH adjusted to patient's actual temperature (BldV) 7.46 High 7.32-7.42 [facility] Comment on above: Order Comment: Speci men Type: VENOUS BLOOD SPECIMENOrdering Facility: [facility] Address: [address] [place] [address] Performed By: #### 2 4344-4 ####[facility]ORATORYCLIA [id number] [place] [address] [place] Potassium [Moles/Vol] 3.8 mmol/L Normal 3.5-5.0 [facility] Comment on above: Order Comment: Speci men Type: VENOUS BLOOD SPECIMENOrdering Facility: [facility] Address: [address] [place], [place] [address] Performed By: #### 2 4344-4 ####[facility] LABORATORYCLIA [id number] [place] [address] [place] Sodium [Moles/Vol] 136 mmol/L Normal 136-144 [facility] Comment on above: Order Comment: Speci men Type: VENOUS BLOOD SPECIMENOrdering Facility: [facility] Address: [address] [place] [address] Performed By: #### 2 4344-4 ####[facility] LABORATORYCLIA [id number] [address] [place] Magn[facility] Magnesium [Mass/Vol] 1.8 mg/dL Normal 1.7-2.3 [facility] Comment on above: Order Comment: Speci men Type: BLOOD SPECIMENOrdering Facility: [facility] Address: [address] [place] [address] Performed By: #### 2 4321-2, , 2777-1 ####[facility] LABORATORYCLIA [id number] [address] [place] NURSING PROGon 05-11-2024 NURSING PROG Normal [facility] Phosphate SerPl-ncon 05-11 Phosphate [Mass/Vol] 2.6 mg/dL Low 2.7-4.8 [facility] Comment on above: Order Comment: Speci men Type: BLOOD SPECIMENOrdering Facility: [facility] Address: [address] [place] [address] Performed By: #### 2 4321-2, 21198-3, 2777-1 ####[facility] LABORATORYCLIA [id number] [address] [place] THERAPY NTon 05-11-2024 THERAPY NT Normal [facility] XR ABDOMEN 1V SUPINEon 05-11 XR ABDOMEN 1V SUPINE Normal [facility] XR CHEST 1V FRONTALon 2023 XR CHEST 1V FRONTAL Normal [facility] Basic metabolic 2000 panelon 05-10-2024 Anion gap [Moles/Vol] 9 mmol/L Normal 8-15 [facility] Comment on above: Order Comment: Speci men Type: BLOOD SPECIMENOrdering Facility: [facility] Address: [address] [place] [address] Performed By: #### 2 4321-2, , 2776-05 ####[facility] LABORATORYCLIA [id number] [place] [address] [place] Calcium [Mass/Vol] 8.2 mg/dL Low 8.5-10.2 [facility] Comment on above: Order Comment: Speci men Type: BLOOD SPECIMENOrdering Facility: [facility] Address: [address] [place] [address] Performed By: #### 2 4321-2, , 2776-05 ####[facility] LABORATORYCLIA [id number] [place] [address] [place] Chloride [Moles/Vol] 103 mmol/L Normal 98-107 [facility] Comment on above: Order Comment: Speci men Type: BLOOD SPECIMENOrdering Facility: [facility] Address: [address] [place] [address] Performed By: #### 2 4321-2, , 2776-05 ####[facility] LABORATORYCLIA [id number] [place] [address] [place] CO2 [Moles/Vol] 22 mmol/L Normal 22-30 [facility] Comment on above: Order Comment: Speci men Type: BLOOD SPECIMENOrdering Facility: [facility] Address: [address] [place] [address] Performed By: #### 2 4321-2, , 2776-05 ####[facility] LABORATORYCLIA [id number] [place] [address] [place] Creatinine [Mass/Vol] 0.49 mg/dL Low 0.58-0.96 [facility] Comment on above: Order Comment: Helen rg Type: BLOOD SPECIMENOrdering Facility: [facility] Address: [address] [place] [address] Performed By: #### 2 4321-2, , 2776-05 ####[facility] LABORATORYCLIA [id number] [address] STATES OF [facility] Creatinine and Glomerular filtration rate.predicted panel (S/P/Bld) 94 mL/min/1.73m??? Normal >=60 [facility] Comment on above: Order Comment: Helen rg Type: BLOOD SPECIMENOrdering Facility: [facility] Address: [address] [place] [address] Result Comment: Kaylene mated Glomerular Filtration Rate [...] Performed By: #### 2 4321-2, , 2776-05 ####[facility] LABORATORYCLIA [id number] [address] [place] Glucose [Mass/Vol] 143 mg/dL High 74-99 [facility] Comment on above: Order Comment: Helen rg Type: BLOOD SPECIMENOrdering Facility: [facility] Address: [address] [place] [address] Result Comment: The [employer] [employer] (ADA) [...] Performed By: #### 2 4321-2, , 2776-05 ####[facility] LABORATORYCLIA [id number] [place], [place] [address] [place] [address] [place] Potassium [Moles/Vol] 4.2 mmol/L Normal 3.7-5.1 [facility] Comment on above: Order Comment: Helen rg Type: BLOOD SPECIMENOrdering Facility: [facility] Address: [address] [place] [address] Performed By: #### 2 4321-2, , 2776-05 ####[facility] LABORATORYCLIA [id number] [address] STATES OF [facility] Sodium [Moles/Vol] 134 mmol/L Low 136-144 [facility] Comment on above: Order Comment: Helen rg Type: BLOOD SPECIMENOrdering Facility: [facility] Address: [address] [place] [address] Performed By: #### 2 4321-2, , 2776-05 ####[facility] LABORATORYCLIA [id number] [address] STATES [facility] Urea nitrogen [Mass/Vol] 12 mg/dL Normal 7-21 [facility] Comment on above: Order Comment: Helen rg Type: BLOOD SPECIMENOrdering Facility: [facility] Address: [address] [place] [address] Performed By: #### 2 4321-2, , 2776-05 ####[facility] LABORATORYCLIA [id number] [place] [id number] [place] CASE MANAGEMon 05-10-2024 CASE MANAGEM Normal [facility] CBC panel Auto (Bld)on 05-10 Erythrocyte distribution width (RBC) [Ratio] 15.6 % High 11.5-15.0 [facility] Comment on above: Order Comment: Helen rg Type: BLOOD SPECIMENOrdering Facility: [facility] Address: [address] [place] [address] Performed By: #### 5 8410-2 ####[facility] LABORATORYCLIA [id number] [address] Hematocrit (Bld) [Volume fraction] 24.7 % Low 36.0-46.0 [facility] Comment on above: Order Comment: Speci men Type: BLOOD SPECIMENOrdering Facility: [facility] Address: [address] [place] [address] Performed By: #### 5 8410-2 ####[facility] LABORATORYCLIA [id number] [address] OF [facility] Hemoglobin (Bld) [Mass/Vol] 7.8 g/dL Low 11.5-15.5 [facility] Comment on above: Order Comment: Speci men Type: BLOOD SPECIMENOrdering Facility: [facility] Address: [address] [place] [address] Performed By: #### 5 8410-2 ####[facility] LABORATORYCLIA [id number] [address] STATES OF [facility] MCH (RBC) [Entitic mass] 30.0 pg Normal 26.0-34.0 [facility] Comment on above: Order Comment: Speci men Type: BLOOD SPECIMENOrdering Facility: [facility] Address: [address] [place] [address] Performed By: #### 5 8410-2 ####[facility] LABORATORYCLIA [id number] [address] [place] MCHC (RBC) [Mass/Vol] 31.6 g/dL Normal 30.5-36.0 [facility] Comment on above: Order Comment: Speci men Type: BLOOD SPECIMENOrdering Facility: [facility] Address: [address] [place] [address] Performed By: #### 5 8410-2 ####[facility] LABORATORYCLIA [id number] [address] MCV (RBC) [Entitic vol] 95.0 fL Normal 80.0-100.0 [facility] Comment on above: Order Comment: Speci men Type: BLOOD SPECIMENOrdering Facility: [facility] Address: [address] [place] [address] Performed By: #### 5 8410-2 ####[facility] LABORATORYCLIA [id number] [address] STATES OF [facility] Nucleated RBC (Bld) [#/Vol] 0.02 10*3/uL High <0.01 [facility] Comment on above: Order Comment: Speci men Type: BLOOD SPECIMENOrdering Facility: [facility] Address: [address] [place] [address] Performed By: #### 5 8410-2 ####[facility] LABORATORYCLIA [id number] [address] [place] Platelet mean volume (Bld) [Entitic vol] 10.8 fL Normal 9.0-12.7 [facility] Comment on above: Order Comment: Speci men Type: BLOOD SPECIMENOrdering Facility: [facility] Address: [address] [place] [address] Performed By: #### 5 8410-2 ####[facility] LABORATORYCLIA [id number] [address] [place] Platelets (Bld) [#/Vol] 245 10*3/uL Normal 150-400 [facility] Comment on above: Order Comment: Speci men Type: BLOOD SPECIMENOrdering Facility: [facility] Address: [address] [place] [address] Performed By: #### 5 8410-2 ####[facility] LABORATORYCLIA [id number] [address] [place] RBC (Bld) [#/Vol] 2.60 10*6/uL Low 3.90-5.20 [facility] Comment on above: Order Comment: Speci men Type: BLOOD SPECIMENOrdering Facility: [facility] Address: [address] [place] [address] Performed By: #### 5 8410-2 ####[facility] LABORATORYCLIA [id number] [place], [place] [address] [place] [address] [place] WBC (Bld) [#/Vol] 10.48 10*3/uL Normal 3.70-11.00 [facility] Comment on above: Order Comment: Speci men Type: BLOOD SPECIMENOrdering Facility: [facility] Address: [address] [place] [address] Performed By: #### 5 8410-2 ####[facility] LABORATORYCLIA [id number] [place] [id number] [place] CT BRAIN WO IVCONon 05-10-[address] BRAIN WO IVCON Normal [facility] Calcium.ionized [Moles/Vol]o n 05-10-2024 Calcium.ionized (BldV) [Mass/Vol] 1.13 mmol/L Normal 1.08-1.30 [facility] Comment on above: Order Comment: Speci men Type: BLOOD SPECIMENOrdering Facility: [facility] Address: [address] [place] [address] Performed By: #### 1 995-0 ####[facility] LABORATORYCLIA [id number] [address] Calcium.ionized adjusted to pH 7.4 (Bld) [Moles/Vol] 1.14 mmol/L Normal 1.08-1.30 [facility] Comment on above: Order Comment: Speci men Type: BLOOD SPECIMENOrdering Facility: [facility] Address: [address] [place] [address] Performed By: #### 1 995-0 ####[facility] LABORATORYCLIA [id number] [place] [address] [place] Magnesium SerPl-mCncon 05-10 Magnesium [Mass/Vol] 1.9 mg/dL Normal 1.7-2.3 [facility] Comment on above: Order Comment: Speci men Type: BLOOD SPECIMENOrdering Facility: [facility] Address: [address] [place] [address] Performed By: #### 2 4321-2, , 2776-05 ####[facility] LABORATORYCLIA [id number] [address] OF [facility] NURSING PROGon 05-10-2024 NURSING PROG Normal [facility] Phosphate SerPl-mCncon 05-10 Phosphate [Mass/Vol] 2.8 mg/dL Normal 2.7-4.8 [facility] Comment on above: Order Comment: Speci men Type: BLOOD SPECIMENOrdering Facility: [facility] Address: [address] [place] [address] Performed By: #### 2 4321-2, , 2776-05 ####[facility] LABORATORYCLIA [id number] [address] THERAPY NTon 05-10-2024 THERAPY NT Normal [facility] THERAPY NT Normal [facility] THERAPY NT Normal [facility] Basic metabolic 2000 panelon 05-09-2024 Anion gap [Moles/Vol] 12 mmol/L Normal 8-15 [facility] Comment on above: Order Comment: Speci men Type: BLOOD SPECIMENOrdering Facility: [facility] Address: [address] [place] [address] Performed By: #### 2 4321-2, , 2776-05 ####[facility] LABORATORYCLIA [id number] [address] STATES OF [facility] Calcium [Mass/Vol] 7.9 mg/dL Low 8.5-10.2 [facility] Comment on above: Order Comment: Speci men Type: BLOOD SPECIMENOrdering Facility: [facility] Address: [address] [place] [address] Performed By: #### 2 4321-2, , 2776-05 ####[facility] LABORATORYCLIA [id number] [address] [place] Chloride [Moles/Vol] 103 mmol/L Normal 98-107 [facility] Comment on above: Order Comment: Speci men Type: BLOOD SPECIMENOrdering Facility: [facility] Address: [address] [place], [place] [address] Performed By: #### 2 4321-2, , 2776-05 ####[facility]PITALCLIA [id number] [place] [id number] [place] CO2 [Moles/Vol] 21 mmol/L Low 22-30 [facility] Comment on above: Order Comment: Speci men Type: BLOOD SPECIMENOrdering Facility: [facility] Address: [address] [place] [address] Performed By: #### 2 4321-2, , 2776-05 ####[facility]PITALIA [id number] [address] STATES OF [facility] Creatinine [Mass/Vol] 0.56 mg/dL Low 0.58-0.96 [facility] Comment on above: Order Comment: Speci men Type: BLOOD SPECIMENOrdering Facility: [facility] Address: [address] [place] [address] Performed By: #### 2 4321-2, , 2776-05 ####[facility] HOSPITALIA [id number] [address] Creatinine and Glomerular filtration rate.predicted panel (S/P/Bld) 91 mL/min/1.73m??? Normal >=60 [facility] Comment on above: Order Comment: Speci men Type: BLOOD SPECIMENOrdering Facility: [facility] Address: [address] [place] [address] Result Comment: Kaylene mated Glomerular Filtration Rate [...] Performed By: #### 2 4321-2, , 2776-05 ####[facility] LABORATORYCLIA [id number] [place] [address] [place] Glucose [Mass/Vol] 150 mg/dL High 74-99 [facility] Comment on above: Order Comment: Speci men Type: BLOOD SPECIMENOrdering Facility: [facility] Address: [address] [place] [address] Result Comment: The [place] [employer] (ADA) [...] Performed By: #### 2 4321-2, , 2776-05 ####[facility] LABORATORYCLIA [id number] [place] [address] [place] Potassium [Moles/Vol] 4.3 mmol/L Normal 3.7-5.1 [facility] Comment on above: Order Comment: Speci men Type: BLOOD SPECIMENOrdering Facility: [facility] Address: [address] [place] [address] Performed By: #### 2 4321-2, , 2776-05 ####[facility] LABORATORYCLIA [id number] [place] [id number] [place] Sodium [Moles/Vol] 136 mmol/L Normal 136-144 [facility] Comment on above: Order Comment: Speci men Type: BLOOD SPECIMENOrdering Facility: [facility] Address: [address] [place] [address] Performed By: #### 2 4321-2, , 2776-05 ####[facility] LABORATORYCLIA [id number] [place] [id number] [place] Urea nitrogen [Mass/Vol] 16 mg/dL Normal 7-21 [facility] Comment on above: Order Comment: Speci men Type: BLOOD SPECIMENOrdering Facility: [facility] Address: [address] [place] [address] Performed By: #### 2 4321-2, 71079-3, 2777-1 ####[facility] LABORATORYCLIA [id number] [address] [place] CBC panel Auto (Bld)on 05-09 Erythrocyte distribution width (RBC) [Ratio] 16.1 % High 11.5-15.0 [facility] Comment on above: Order Comment: Speci men Type: BLOOD SPECIMENOrdering Facility: [facility] Address: [address] [place] [address] Performed By: #### 5 8410-2 ####[facility] LABORATORYCLIA [id number] [address] [place] Hematocrit (Bld) [Volume fraction] 20.4 % Low 36.0-46.0 [facility] Comment on above: Order Comment: Speci men Type: BLOOD SPECIMENOrdering Facility: [facility] Address: [address] [place] [address] Performed By: #### 5 8410-2 ####[facility] LABORATORYCLIA [id number] [address] [place] Hemoglobin (Bld) [Mass/Vol] 6.4 g/dL Low 11.5-15.5 [facility] Comment on above: Order Comment: Speci men Type: BLOOD SPECIMENOrdering Facility: [facility] Address: [address] [place] [address] Performed By: #### 5 8410-2 ####[facility] LABORATORYCLIA [id number] [address] STATES [facility] MCH (RBC) [Entitic mass] 29.9 pg Normal 26.0-34.0 [facility] Comment on above: Order Comment: Speci men Type: BLOOD SPECIMENOrdering Facility: [facility] Address: [address] [place] [address] Performed By: #### 5 8410-2 ####[facility] LABORATORYCLIA [id number] [address] MCHC (RBC) [Mass/Vol] 31.4 g/dL Normal 30.5-36.0 [facility] Comment on above: Order Comment: Speci men Type: BLOOD SPECIMENOrdering Facility: [facility] Address: [address] [place] [address] Performed By: #### 5 8410-2 ####[facility] LABORATORYCLIA [id number] [address] MCV (RBC) [Entitic vol] 95.3 fL Normal 80.0-100.0 [facility] Comment on above: Order Comment: Speci men Type: BLOOD SPECIMENOrdering Facility: [facility] Address: [address] [place] [address] Performed By: #### 5 8410-2 ####[facility] LABORATORYCLIA [id number] [address] Nucleated RBC (Bld) [#/Vol] 0.02 10*3/uL High <0.01 [facility] Comment on above: Order Comment: Speci men Type: BLOOD SPECIMENOrdering Facility: [facility] Address: [address] [place] [address] Performed By: #### 5 8410-2 ####[facility] LABORATORYCLIA [id number] [address] Platelet mean volume (Bld) [Entitic vol] 11.0 fL Normal 9.0-12.7 [facility] Comment on above: Order Comment: Speci men Type: BLOOD SPECIMENOrdering Facility: [facility] Address: [address] [place] [address] Performed By: #### 5 8410-2 ####[facility] LABORATORYCLIA [id number] [address] OF [place] Platelets (Bld) [#/Vol] 219 10*3/uL Normal 150-400 [facility] Comment on above: Order Comment: Speci men Type: BLOOD SPECIMENOrdering Facility: [facility] Address: [address] [place] [address] Performed By: #### 5 8410-2 ####[facility] LABORATORYCLIA [id number] [place] [address] [place] RBC (Bld) [#/Vol] 2.14 10*6/uL Low 3.90-5.20 [facility] Comment on above: Order Comment: Speci men Type: BLOOD SPECIMENOrdering Facility: [facility] Address: [address] [place] [address] Performed By: #### 5 8410-2 ####[facility] LABORATORYCLIA [id number] [address] STATES OF [facility] WBC (Bld) [#/Vol] 10.06 10*3/uL Normal 3.70-11.00 [facility] Comment on above: Order Comment: Speci men Type: BLOOD SPECIMENOrdering Facility: [facility] Address: [address] [place] [address] Performed By: #### 5 8410-2 ####[facility] LABORATORYCLIA [id number] [address] Calcium.ionized [Moles/Vol]o n 05-09-2024 Calcium.ionized (BldV) [Mass/Vol] 1.20 mmol/L Normal 1.08-1.30 [facility] Comment on above: Order Comment: Speci men Type: BLOOD SPECIMENOrdering Facility: [facility] Address: [address] [place] [address] Performed By: #### 1 995-0 ####[facility] LABORATORYCLIA [id number] [address] Calcium.ionized adjusted to pH 7.4 (Bld) [Moles/Vol] 1.17 mmol/L Normal 1.08-1.30 [facility] Comment on above: Order Comment: Speci men Type: BLOOD SPECIMENOrdering Facility: [facility] Address: [address] [place] [address] Performed By: #### 1 995-0 ####[facility] LABORATORYCLIA [id number] [address] Hematocrit Auto (Bld) [Volum e fraction]on 05-09-2024 Hematocrit (Bld) [Volume fraction] 20.4 % Low 36.0-46.0 [facility] Comment on above: Order Comment: Speci men Type: BLOOD SPECIMENOrdering Facility: [facility] Address: [address] [place] [address] Performed By: #### 4 544-3, 718-7 ####[facility] LABORATORYCLIA [id number] [address] STATES OF [facility] Hgb Bld-mCncon 05-09-2024 Hemoglobin (Bld) [Mass/Vol] 7.4 g/dL Low 11.5-15.5 [facility] Comment on above: Order Comment: Speci men Type: BLOOD SPECIMENOrdering Facility: [facility] Address: [address] [place] [address] Performed By: #### 7 18-7 ####[facility]ITALCL[facility] [id number] [address] STATES OF [facility] Hemoglobin (Bld) [Mass/Vol] 6.5 g/dL Low 11.5-15.5 [facility] Comment on above: Order Comment: Speci men Type: BLOOD SPECIMENOrdering Facility: [facility] Address: [address] [place] [address] Performed By: #### 4 544-3 718-7 ####[facility] LABORATORYCLIA [id number] [address] [place] Magnesium SerPl-mCncon 05-09 Magnesium [Mass/Vol] 2.0 mg/dL Normal 1.7-2.3 [facility] Comment on above: Order Comment: Speci men Type: BLOOD SPECIMENOrdering Facility: [facility] Address: [address] [place] [address] Performed By: #### 2 4321-2, 71996-7, 2777-1 ####[facility] LABORATORYCLIA [id number] [place] [address] [place] PT EDon 05-09-2024 PT ED Normal [facility] Phosphate SerPl-mCncon 05-09 Phosphate [Mass/Vol] 2.9 mg/dL Normal 2.7-4.8 [facility] Comment on above: Order Comment: Speci men Type: BLOOD SPECIMENOrdering Facility: [facility] Address: [address] [place] [address] Performed By: #### 2 4321-2, , 2777 ####[facility] LABORATORYCLIA [id number] [address] [place] THERAPY NTon 05-09-2024 THERAPY NT Normal [facility] THERAPY NT Normal [facility] Basic metabolic 2000 panelon 05-08-2024 Anion gap [Moles/Vol] 9 mmol/L Normal 8-15 [facility] Comment on above: Order Comment: Speci men Type: BLOOD SPECIMENOrdering Facility: [facility] Address: [address] [place] [address] Performed By: #### 2 4321-2 ####[facility] LABORATORYCLIA [id number] [place] [address] [place] Calcium [Mass/Vol] 8.1 mg/dL Low 8.5-10.2 [facility] Comment on above: Order Comment: Speci men Type: BLOOD SPECIMENOrdering Facility: [facility] Address: [address] [place] [address] Performed By: #### 2 4321-2 ####[facility] LABORATORYCLIA [id number] [place] [address] [place] Chloride [Moles/Vol] 110 mmol/L High 98-107 [facility] Comment on above: Order Comment: Speci men Type: BLOOD SPECIMENOrdering Facility: [facility] Address: [address] [place] [address] Performed By: #### 2 4321-2 ####[facility] LABORATORYCLIA [id number] [address] STATES OF [facility] CO2 [Moles/Vol] 21 mmol/L Low 22-30 [facility] Comment on above: Order Comment: Speci men Type: BLOOD SPECIMENOrdering Facility: [facility] Address: [address] [place] [address] Performed By: #### 2 4321-2 ####[facility] LABORATORYCLIA [id number] [address] STATES OF [facility] Creatinine [Mass/Vol] 0.65 mg/dL Normal 0.58-0.96 [facility] Comment on above: Order Comment: Speci men Type: BLOOD SPECIMENOrdering Facility: [facility] Address: [address] [place] [address] Performed By: #### 2 4321-2 ####[facility]ITALCL[facility] [id number] [address] Creatinine and Glomerular filtration rate.predicted panel (S/P/Bld) 88 mL/min/1.73m??? Normal >=60 [facility] Comment on above: Order Comment: Speci men Type: BLOOD SPECIMENOrdering Facility: [facility] Address: [address] [place] [address] Result Comment: Kaylene mated Glomerular Filtration Rate [...] actual GFR. Performed By: #### 2 4321-2 ####[facility] LABORATORYCLIA [id number] [address] Glucose [Mass/Vol] 168 mg/dL High 74-99 [facility] Comment on above: Order Comment: Speci men Type: BLOOD SPECIMENOrdering Facility: [facility] Address: [address] [place] [address] Result Comment: The [place] [employer] (ADA) [...] 2016.39(Suppl 1). Performed By: #### 2 4321-2 ####[facility] LABORATORYCLIA [id number] [place] [address] [place] Potassium [Moles/Vol] 5.1 mmol/L Normal 3.7-5.1 [facility] Comment on above: Order Comment: Speci men Type: BLOOD SPECIMENOrdering Facility: [facility] Address: [address] [place] [address] Performed By: #### 2 4321-2 ####[facility] LABORATORYCLIA [id number] [place] [address] [place] Sodium [Moles/Vol] 140 mmol/L Normal 136-144 [facility] Comment on above: Order Comment: Speci men Type: BLOOD SPECIMENOrdering Facility: [facility] Address: [address] [place] [address] Performed By: #### 2 4321-2 ####[facility] LABORATORYCLIA [id number] [place] [address] [place] Urea nitrogen [Mass/Vol] 18 mg/dL Normal 7-21 [facility] Comment on above: Order Comment: Speci men Type: BLOOD SPECIMENOrdering Facility: [facility] Address: [address] [place] [id number] Performed By: #### 2 4321-2 ####[facility] LABORATORYCLIA [id number] [place] [address] [place] Anion gap [Moles/Vol] 8 mmol/L Normal 8-15 [facility] Comment on above: Order Comment: Speci men Type: BLOOD SPECIMENOrdering Facility: [facility] Address: [address] [place] [address] Performed By: #### 2 4321-2 ####[facility]ATORYCLIA [id number] [place] [address] [place] Calcium [Mass/Vol] 8.4 mg/dL Low 8.5-10.2 [facility] Comment on above: Order Comment: Speci men Type: BLOOD SPECIMENOrdering Facility: [facility] Address: [address] [place] [address] Performed By: #### 2 4321-2 ####[facility] LABORATORYCLIA [id number] [place] [address] [place] Chloride [Moles/Vol] 109 mmol/L High 98-107 [facility] Comment on above: Order Comment: Speci men Type: BLOOD SPECIMENOrdering Facility: [facility] Address: [address] [place] [address] Performed By: #### 2 4321-2 ####[facility] LABORATORYCLIA [id number] [place] [address] [place] CO2 [Moles/Vol] 20 mmol/L Low 22-30 [facility] Comment on above: Order Comment: Speci men Type: BLOOD SPECIMENOrdering Facility: [facility] Address: [address] [place] [address] Performed By: #### 2 4321-2 ####[facility] LABORATORYCLIA [id number] [place] [address] [place] Creatinine [Mass/Vol] 0.74 mg/dL Normal 0.58-0.96 [facility] Comment on above: Order Comment: Speci men Type: BLOOD SPECIMENOrdering Facility: [facility] Address: [address] [place] [address] Performed By: #### 2 4321-2 ####[facility]ITALCLIA [id number] [place] [address] [place] Creatinine and Glomerular filtration rate.predicted panel (S/P/Bld) 81 mL/min/1.73m??? Normal >=60 [facility] Comment on above: Order Comment: Helen rg Type: BLOOD SPECIMENOrdering Facility: [facility] Address: [address] [place] [address] Result Comment: Kaylene mated Glomerular Filtration Rate [...] actual GFR. Performed By: #### 2 4321-2 ####[facility]OSPITALIA [id number] [place] [address] [place] Glucose [Mass/Vol] 168 mg/dL High 74-99 [facility] Comment on above: Order Comment: Helen rg Type: BLOOD SPECIMENOrdering Facility: [facility] Address: [address] [place] [address] Result Comment: The [employer] [employer] (ADA) [...] 2016.39(Suppl 1). Performed By: #### 2 4321-2 ####[facility] LABORATORYCLIA [id number] [place] [id number] [place] Potassium [Moles/Vol] 5.2 mmol/L High 3.7-5.1 [facility] Comment on above: Order Comment: Speci men Type: BLOOD SPECIMENOrdering Facility: [facility] Address: [address] [place] [address] Performed By: #### 2 4321-2 ####[facility] LABORATORYCLIA [id number] [place] [address] [place] Sodium [Moles/Vol] 137 mmol/L Normal 136-144 [facility] Comment on above: Order Comment: Speci men Type: BLOOD SPECIMENOrdering Facility: [facility] Address: [address] [place] [address] Performed By: #### 2 4321-2 ####[facility]ORATORYCLIA [id number] [address] [place] Urea nitrogen [Mass/Vol] 17 mg/dL Normal 7-21 [facility] Comment on above: Order Comment: Speci men Type: BLOOD SPECIMENOrdering Facility: [facility] Address: [address] [place] [address] Performed By: #### 2 4321-2 ####[facility]ATORYCLIA [id number] [address] [place] Anion gap [Moles/Vol] 8 mmol/L Normal 8-15 [facility] Comment on above: Order Comment: Speci men Type: BLOOD SPECIMENOrdering Facility: [facility] Address: [address] [place] [address] Performed By: #### 2 4321-2, 45800-8 ####[facility]ORATORYCLIA [id number] [place] [address] [place] Calcium [Mass/Vol] 8.6 mg/dL Normal 8.5-10.2 [facility] Comment on above: Order Comment: Speci men Type: BLOOD SPECIMENOrdering Facility: [facility] Address: [address] [place] [address] Performed By: #### 2 4321-2, 91864-7 ####[facility]ORATORYCLIA [id number] [place] [address] Chloride [Moles/Vol] 109 mmol/L High 98-107 [facility] Comment on above: Order Comment: Speci men Type: BLOOD SPECIMENOrdering Facility: [facility] Address: [address] [place] [address] Performed By: #### 2 4321-2, 49296-1 ####[facility]ORATORYCLIA [id number] [address] OF [facility] CO2 [Moles/Vol] 20 mmol/L Low 22-30 [facility] Comment on above: Order Comment: Speci men Type: BLOOD SPECIMENOrdering Facility: [facility] Address: [address] [place] [address] Performed By: #### 2 4321-2, 51141-2 ####[facility]ORATORYCLIA [id number] [address] Creatinine [Mass/Vol] 0.72 mg/dL Normal 0.58-0.96 [facility] Comment on above: Order Comment: Speci men Type: BLOOD SPECIMENOrdering Facility: [facility] Address: [address] [place] [address] Performed By: #### 2 4321-2, 04149-0 ####[facility]ATORYCLIA [id number] [address] Creatinine and Glomerular filtration rate.predicted panel (S/P/Bld) 84 mL/min/1.73m??? Normal >=60 [facility] Comment on above: Order Comment: Speci men Type: BLOOD SPECIMENOrdering Facility: [facility] Address: [address] [place] [address] Result Comment: Kaylene mated Glomerular Filtration Rate [...] actual GFR. Performed By: #### 2 4321-2, 34954-4 ####[facility]ATORYCLIA [id number] [place] [address] [place] Glucose [Mass/Vol] 152 mg/dL High 74-99 [facility] Comment on above: Order Comment: Speci men Type: BLOOD SPECIMENOrdering Facility: [facility] Address: [address] [place] [address] Result Comment: The [employer] Diabetes [employer] (ADA) [...] 2016.39(Suppl 1). Performed By: #### 2 4321-2, 63929-0 ####[facility]ORATORYCLIA [id number] [place] [address] [place] Potassium [Moles/Vol] 5.2 mmol/L High 3.7-5.1 [facility] Comment on above: Order Comment: Speci men Type: BLOOD SPECIMENOrdering Facility: [facility] Address: [address] [place] [address] Performed By: #### 2 4321-2, 05862-6 ####[facility]ORATORYCLIA [id number] [place] [address] [place] Sodium [Moles/Vol] 137 mmol/L Normal 136-144 [facility] Comment on above: Order Comment: Speci men Type: BLOOD SPECIMENOrdering Facility: [facility] Address: [address] [place] [address] Performed By: #### 2 4321-2, 65844-5 ####[facility]ATORYCLIA [id number] [place] [address] [place] Urea nitrogen [Mass/Vol] 18 mg/dL Normal 7-21 [facility] Comment on above: Order Comment: Speci men Type: BLOOD SPECIMENOrdering Facility: [facility] Address: [address] [place] [address] Performed By: #### 2 4321-2, 18702-6 ####[facility] LABORATORYCLIA [id number] [place] [address] [place] Anion gap [Moles/Vol] 9 mmol/L Normal 8-15 [facility] Comment on above: Order Comment: Speci men Type: BLOOD SPECIMENOrdering Facility: [facility] Address: [address] [place] [address] Performed By: #### 2 4321-2 ####[facility]ATORYCLIA [id number] [place] [address] [place] Calcium [Mass/Vol] 8.5 mg/dL Normal 8.5-10.2 [facility] Comment on above: Order Comment: Speci men Type: BLOOD SPECIMENOrdering Facility: [facility] Address: [address] [place] [address] Performed By: #### 2 4321-2 ####[facility]ORATORYCLIA [id number] [place] [address] [place] Chloride [Moles/Vol] 104 mmol/L Normal 98-107 [facility] Comment on above: Order Comment: Speci men Type: BLOOD SPECIMENOrdering Facility: [facility] Address: [address] [place] [address] Performed By: #### 2 4321-2 ####[facility] LABORATORYCLIA [id number] [place] [address] [place] CO2 [Moles/Vol] 19 mmol/L Low 22-30 [facility] Comment on above: Order Comment: Speci men Type: BLOOD SPECIMENOrdering Facility: [facility] Address: [address] [place] [address] Performed By: #### 2 4321-2 ####[facility]ORATORYCLIA [id number] [address] STATES OF [facility] Creatinine [Mass/Vol] 0.64 mg/dL Normal 0.58-0.96 [facility] Comment on above: Order Comment: Helen rg Type: BLOOD SPECIMENOrdering Facility: [facility] Address: [address] [place] [address] Performed By: #### 2 4321-2 ####[facility]PITALIA [id number] [address] Creatinine and Glomerular filtration rate.predicted panel (S/P/Bld) 88 mL/min/1.73m??? Normal >=60 [facility] Comment on above: Order Comment: Helen rg Type: BLOOD SPECIMENOrdering Facility: [facility] Address: [address] [place] [address] Result Comment: Kaylene mated Glomerular Filtration Rate [...] actual GFR. Performed By: #### 2 4321-2 ####[facility] LABORATORYIA [id number] [address] OF [facility] Glucose [Mass/Vol] 251 mg/dL High 74-99 [facility] Comment on above: Order Comment: Helen rg Type: BLOOD SPECIMENOrdering Facility: [facility] Address: [address] [place] [address] Result Comment: The [employer] [employer] (ADA) [...] 2016.39(Suppl 1). Performed By: #### 2 4321-2 ####[facility] LABORATORYCLIA [id number] [address] STATES OF [facility] Potassium [Moles/Vol] 5.7 mmol/L High 3.7-5.1 [facility] Comment on above: Order Comment: Speci men Type: BLOOD SPECIMENOrdering Facility: [facility] Address: [address] [place] [address] Performed By: #### 2 4321-2 ####[facility]ORATORYCLIA [id number] [address] STATES [facility] Sodium [Moles/Vol] 132 mmol/L Low 136-144 [facility] Comment on above: Order Comment: Speci men Type: BLOOD SPECIMENOrdering Facility: [facility] Address: [address] [place] [address] Performed By: #### 2 1-2 ####[facility]ATORYCLIA [id number] [address] STATES [facility] Urea nitrogen [Mass/Vol] 19 mg/dL Normal 7-21 [facility] Comment on above: Order Comment: Speci men Type: BLOOD SPECIMENOrdering Facility: [facility] Address: [address] [place] [address] Performed By: #### 2 4321-2 ####[facility]ORATORYCLIA [id number] [address] [place] Anion gap [Moles/Vol] 12 mmol/L Normal 8-15 [facility] Comment on above: Order Comment: Speci men Type: BLOOD SPECIMENOrdering Facility: [facility] Address: [address] [place] [address] Performed By: #### 2 4321-2, 2777-1, 94517-8 ####[facility]ATORYCLIA [id number] [place] [address] [place] Calcium [Mass/Vol] 8.4 mg/dL Low 8.5-10.2 [facility] Comment on above: Order Comment: Speci men Type: BLOOD SPECIMENOrdering Facility: [facility] Address: [address] [place] [address] Performed By: #### 2 4321-2, 2776-05, ####[facility]ATORYCLIA [id number] [place] [address] [place] Chloride [Moles/Vol] 105 mmol/L Normal 98-107 [facility] Comment on above: Order Comment: Speci men Type: BLOOD SPECIMENOrdering Facility: [facility] Address: [address] [place] [address] Performed By: #### 2 4321-2, 2776-05, ####[facility]ATORYCLIA [id number] [address] [place] CO2 [Moles/Vol] 16 mmol/L Low 22-30 [facility] Comment on above: Order Comment: Speci men Type: BLOOD SPECIMENOrdering Facility: [facility] Address: [address] [place] [address] Performed By: #### 2 4321-2, 2776-05, ####[facility]ATORYCLIA [id number] [address] [place] Creatinine [Mass/Vol] 0.70 mg/dL Normal 0.58-0.96 [facility] Comment on above: Order Comment: Speci men Type: BLOOD SPECIMENOrdering Facility: [facility] Address: [address] [place] [address] Performed By: #### 2 4321-2, 2776-05, ####[facility]ATORYCLIA [id number] [address] Creatinine and Glomerular filtration rate.predicted panel (S/P/Bld) 86 mL/min/1.73m??? Normal >=60 [facility] Comment on above: Order Comment: Speci men Type: BLOOD SPECIMENOrdering Facility: [facility] Address: [address] [place] [address] Result Comment: Kaylene mated Glomerular Filtration Rate [...] GFR. Performed By: #### 2 4321-2, 2777-1, ####[facility]ATORYCLIA [id number] [place] [address] [place] Glucose [Mass/Vol] 247 mg/dL High 74-99 [facility] Comment on above: Order Comment: Helen rg Type: BLOOD SPECIMENOrdering Facility: [facility] Address: [address] [place] [address] Result Comment: The [employer] [employer] (ADA) [...] 1). Performed By: #### 2 4321-2, 2777-1, ####[facility]ORATORYCLIA [id number] [place] [id number] [place] Potassium [Moles/Vol] 6.2 mmol/L Critically high 3.7-5.1 [facility] Comment on above: Order Comment: Helen rg Type: BLOOD SPECIMENOrdering Facility: [facility] Address: [address] [place] [address] Performed By: #### 2 4321-2, 27711-28, ####[facility]ORATORYCLIA [id number] [place] [address] [place] Sodium [Moles/Vol] 133 mmol/L Low 136-144 [facility] Comment on above: Order Comment: Speci men Type: BLOOD SPECIMENOrdering Facility: [facility] Address: [address] [place] [address] Performed By: #### 2 4321-2, 2776-05, ####[facility]ATORYCLIA [id number] [place] [address] [place] Urea nitrogen [Mass/Vol] 19 mg/dL Normal 7-21 [facility] Comment on above: Order Comment: Speci men Type: BLOOD SPECIMENOrdering Facility: [facility] Address: [address] [place] [address] Performed By: #### 2 4321-2, 2776-05, ####[facility]ATORYCLIA [id number] [address] [place] CASE MGT INIT ASSESon 2023 CASE MGT INIT ASSES Normal [facility] CBC panel Auto (Bld)on 05-08 Erythrocyte distribution width (RBC) [Ratio] 16.1 % High 11.5-15.0 [facility] Comment on above: Order Comment: Speci men Type: BLOOD SPECIMENOrdering Facility: [facility] Address: [address] [place] [address] Performed By: #### 5 8410-2 ####[facility]ATORYCLIA [id number] [place] [id number] [place] Hematocrit (Bld) [Volume fraction] 25.6 % Low 36.0-46.0 [facility] Comment on above: Order Comment: Speci men Type: BLOOD SPECIMENOrdering Facility: [facility] Address: [address] [place] [address] Performed By: #### 5 8410-2 ####[facility]ATORYCLIA [id number] [address] STATES OF [facility] Hemoglobin (Bld) [Mass/Vol] 8.1 g/dL Low 11.5-15.5 [facility] Comment on above: Order Comment: Speci men Type: BLOOD SPECIMENOrdering Facility: [facility] Address: [address] [place] [address] Performed By: #### 5 8410-2 ####[facility]ATORYCLIA [id number] [address] MCH (RBC) [Entitic mass] 29.9 pg Normal 26.0-34.0 [facility] Comment on above: Order Comment: Speci men Type: BLOOD SPECIMENOrdering Facility: [facility] Address: [address] [place] [address] Performed By: #### 5 8410-2 ####[facility]ATORYCLIA [id number] [address] MCHC (RBC) [Mass/Vol] 31.6 g/dL Normal 30.5-36.0 [facility] Comment on above: Order Comment: Speci men Type: BLOOD SPECIMENOrdering Facility: [facility] Address: [address] [place] [address] Performed By: #### 5 8410-2 ####[facility]ATORYCLIA [id number] [address] OF [facility] MCV (RBC) [Entitic vol] 94.5 fL Normal 80.0-100.0 [facility] Comment on above: Order Comment: Speci men Type: BLOOD SPECIMENOrdering Facility: [facility] Address: [address] [place] [address] Performed By: #### 5 8410-2 ####[facility]ATORYCLIA [id number] [address] Nucleated RBC (Bld) [#/Vol] 0.02 10*3/uL High <0.01 [facility] Comment on above: Order Comment: Speci men Type: BLOOD SPECIMENOrdering Facility: [facility] Address: [address] [place] [address] Performed By: #### 5 8410-2 ####[facility]ORATORYCLIA [id number] [address] STATES [facility] Platelet mean volume (Bld) [Entitic vol] 10.7 fL Normal 9.0-12.7 [facility] Comment on above: Order Comment: Speci men Type: BLOOD SPECIMENOrdering Facility: [facility] Address: [address] [place] [address] Performed By: #### 5 8410-2 ####[facility]ORATORYCLIA [id number] [address] OF [place] Platelets (Bld) [#/Vol] 266 10*3/uL Normal 150-400 [facility] Comment on above: Order Comment: Speci men Type: BLOOD SPECIMENOrdering Facility: [facility] Address: [address] [place] [address] Performed By: #### 5 8410-2 ####[facility]ATORYCLIA [id number] [address] [place] RBC (Bld) [#/Vol] 2.71 10*6/uL Low 3.90-5.20 [facility] Comment on above: Order Comment: Speci men Type: BLOOD SPECIMENOrdering Facility: [facility] Address: [address] [place] [address] Performed By: #### 5 8410-2 ####[facility]ORATORYCLIA [id number] [address] [place] WBC (Bld) [#/Vol] 14.54 10*3/uL High 3.70-11.00 [facility] Comment on above: Order Comment: Speci men Type: BLOOD SPECIMENOrdering Facility: [facility] Address: [address] [place] [address] Performed By: #### 5 8410-2 ####[facility]ATORYCLIA [id number] [address] CONSULT PROGon 12-09-2024 CONSULT PROG Normal [facility] Calcium.ionized [Moles/Vol]o n 05-08-2024 Calcium.ionized (BldV) [Mass/Vol] 1.23 mmol/L Normal 1.08-1.30 [facility] Comment on above: Order Comment: Speci men Type: BLOOD SPECIMENOrdering Facility: [facility] Address: [address] [place] [address] Performed By: #### 1 995-0 ####[facility]ATORYCLIA [id number] [address] Calcium.ionized adjusted to pH 7.4 (Bld) [Moles/Vol] 1.17 mmol/L Normal 1.08-1.30 [facility] Comment on above: Order Comment: Speci men Type: BLOOD SPECIMENOrdering Facility: [facility] Address: [address] [place] [address] Performed By: #### 1 995-0 ####[facility]ORATORYCLIA [id number] [address] [place] ECG COMPLETEon 05-08-2024 ECG COMPLETE Normal [facility] Magnesium [facility] Magnesium [Mass/Vol] 2.2 mg/dL Normal 1.7-2.3 [facility] Comment on above: Order Comment: Speci men Type: BLOOD SPECIMENOrdering Facility: [facility] Address: [address] [place] [address] Performed By: #### 2 4321-2, 2777-1, 11955-7 ####[facility]ATORYCLIA [id number] [address] [place] NURSING PROGon 05-08-2024 NURSING PROG Normal [facility] Phosphate SerPl-mCncon 05-08 Phosphate [Mass/Vol] 3.7 mg/dL Normal 2.7-4.8 [facility] Comment on above: Order Comment: Speci men Type: BLOOD SPECIMENOrdering Facility: [facility] Address: [address] [place], [place] [address] Performed By: #### 2 4321-2, 2777-1, 76497-7 ####[facility] [place] LABORATORYCLIA [id number] [address] [place] Procalcitonin SerPl-mCncon 1 07-09-2023 Procalcitonin [Mass/Vol] 0.22 ng/mL High <0.09 [facility] Comment on above: Order Comment: Speci men Type: BLOOD SPECIMENOrdering Facility: [facility] Address: [address] [place] [address] Result Comment: For a guided interpretation of test results, please visit the Change in Procalcitonin Calculator, [email or web address]. Performed By: #### 2 4321-2, 91230-0 ####[facility] [place] LABORATORYCLIA [id number] [address] [place] THERAPY NTon 05-08-2024 THERAPY NT Normal [facility] THERAPY NT Normal [facility] XR CHEST 1V FRONTALon 2023 XR CHEST 1V FRONTAL Normal [facility] ANES POSTPROC EVALon 024 ANES POSTPROC EVAL Normal [facility] ANES PRE-OPon 05-07-2024 ANES PRE-OP Normal [facility] BRIEF OP NOTon 05-07-2024 BRIEF OP NOT Normal [facility] Basic metabolic 2000 panelon 05-07-2024 Anion gap [Moles/Vol] 8 mmol/L Normal 8-15 [facility] Comment on above: Order Comment: Speci men Type: BLOOD SPECIMENOrdering Facility: [facility] Address: [address] [id number] Performed By: #### 2 4321-2 ####[facility] [place] LABORATORYCLIA [id number] [address] [place] Calcium [Mass/Vol] 8.2 mg/dL Low 8.5-10.2 [facility] Comment on above: Order Comment: Speci men Type: BLOOD SPECIMENOrdering Facility: [facility] Address: [address] [place] [address] Performed By: #### 2 4321-2 ####[facility] [place] LABORATORYCLIA [id number] [place] [address] [place] Chloride [Moles/Vol] 111 mmol/L High 98-107 [facility] Comment on above: Order Comment: Speci men Type: BLOOD SPECIMENOrdering Facility: [facility] Address: [address] [place] [address] Performed By: #### 2 4321-2 ####[facility] [place] LABORATORYCLIA [id number] [address] [place] CO2 [Moles/Vol] 18 mmol/L Low 22-30 [facility] Comment on above: Order Comment: Speci men Type: BLOOD SPECIMENOrdering Facility: [facility] Address: [address] [place] [address] Performed By: #### 2 4321-2 ####[facility] [place] LABORATORYCLIA [id number] [address] OF [facility] Creatinine [Mass/Vol] 0.57 mg/dL Low 0.58-0.96 [facility] Comment on above: Order Comment: Speci men Type: BLOOD SPECIMENOrdering Facility: [facility] Address: [address] [place] [address] Performed By: #### 2 4321-2 ####[facility] [place] LABORATORYCLIA [id number] [address] Creatinine and Glomerular filtration rate.predicted panel (S/P/Bld) 91 mL/min/1.73m??? Normal >=60 [facility] Comment on above: Order Comment: Speci men Type: BLOOD SPECIMENOrdering Facility: [facility] Address: [address] [place] [address] Result Comment: Kaylene mated Glomerular Filtration Rate [...] actual GFR. Performed By: #### 2 4321-2 ####[facility] [place] LABORATORYCLIA [id number] [place] [address] [place] Glucose [Mass/Vol] 179 mg/dL High 74-99 [facility] Comment on above: Order Comment: Helen rg Type: BLOOD SPECIMENOrdering Facility: [facility] Address: [address] [place] [address] Result Comment: The [place] [employer] (ADA) [...] 2016.39(Suppl 1). Performed By: #### 2 4321-2 ####[facility] [place] LABORATORYCLIA [id number] [place] [address] [place] Potassium [Moles/Vol] 7.3 mmol/L Critically high 3.7-5.1 [facility] Comment on above: Order Comment: Helen rg Type: BLOOD SPECIMENOrdering Facility: [facility] Address: [address] [id number] Performed By: #### 2 4321-2 ####[facility] [place] LABORATORYCLIA [id number] [place] [id number] [place] Sodium [Moles/Vol] 137 mmol/L Normal 136-144 [facility] Comment on above: Order Comment: Helen rg Type: BLOOD SPECIMENOrdering Facility: [facility] Address: [address] [place] [address] Performed By: #### 2 4321-2 ####[facility] [place] LABORATORYCLIA [id number] [place] [address] [place] Urea nitrogen [Mass/Vol] 16 mg/dL Normal 7-21 [facility] Comment on above: Order Comment: Speci men Type: BLOOD SPECIMENOrdering Facility: [facility] Address: [address] [place] [address] Performed By: #### 2 4321-2 ####[facility] [place] LABORATORYCLIA [id number] [place] [address] [place] Anion gap [Moles/Vol] 9 mmol/L Normal 8-15 [facility] Comment on above: Order Comment: Speci men Type: BLOOD SPECIMENOrdering Facility: [facility] Address: [address] [place] [address] Performed By: #### 2 777-1, 83877-5, ####[facility] [place] LABORATORYCLIA [id number] [place] [address] [place] Calcium [Mass/Vol] 4.8 mg/dL Low 8.5-10.2 [facility] Comment on above: Order Comment: Speci men Type: BLOOD SPECIMENOrdering Facility: [facility] Address: [address] [place] [address] Performed By: #### 2 777-1, 45415-3, ####[facility] [place] LABORATORYCLIA [id number] [place] [address] [place] Chloride [Moles/Vol] 123 mmol/L High 98-107 [facility] Comment on above: Order Comment: Speci men Type: BLOOD SPECIMENOrdering Facility: [facility] Address: [address] [place] [address] Performed By: #### 2 777-1, 21881-4, ####[facility] [place] LABORATORYCLIA [id number] [place] [address] [place] CO2 [Moles/Vol] 12 mmol/L Low 22-30 [facility] Comment on above: Order Comment: Speci men Type: BLOOD SPECIMENOrdering Facility: [facility] Address: [address] [place] [address] Performed By: #### 2 777-1, 39239-9, ####[facility] HOSPITALIA [id number] [place] [id number] [place] Creatinine [Mass/Vol] 0.45 mg/dL Low 0.58-0.96 [facility] Comment on above: Order Comment: Speci men Type: BLOOD SPECIMENOrdering Facility: [facility] Address: [address] [place] [address] Performed By: #### 2 777-1, 58383-3, ####[facility] HOSPITALIA [id number] [address] Creatinine and Glomerular filtration rate.predicted panel (S/P/Bld) 96 mL/min/1.73m??? Normal >=60 [facility] Comment on above: Order Comment: Specmigel rg Type: BLOOD SPECIMENOrdering Facility: [facility] Address: [address] [place] [address] Result Comment: Kaylene mated Glomerular Filtration Rate [...] actual GFR. Performed By: #### 2 777-1, 22644-8, ####[facility]OR HOSPITALIA [id number] [place] [id number] [place] Glucose [Mass/Vol] 125 mg/dL High 74-99 [facility] Comment on above: Order Comment: Speci men Type: BLOOD SPECIMENOrdering Facility: [facility] Address: [address] [place] [address] Result Comment: The [place] Diabetes [employer] (ADA) [...] 1). Performed By: #### 2 777-1, , ####[facility] [place] LABORATORYCLIA [id number] [place] [address] [place] Potassium [Moles/Vol] 2.5 mmol/L Low 3.7-5.1 [facility] Comment on above: Order Comment: Helen rg Type: BLOOD SPECIMENOrdering Facility: [facility] Address: [address] [place] [address] Performed By: #### 2 777-1, , ####[facility] [place] LABORATORYCLIA [id number] [place] [address] [place] Sodium [Moles/Vol] 144 mmol/L Normal 136-144 [facility] Comment on above: Order Comment: Helen rg Type: BLOOD SPECIMENOrdering Facility: [facility] Address: [address] [place] [address] Performed By: #### 2 777-1, , ####[facility] [place] LABORATORYCLIA [id number] [place] [id number] [place] Urea nitrogen [Mass/Vol] 14 mg/dL Normal 7-21 [facility] Comment on above: Order Comment: Helen rg Type: BLOOD SPECIMENOrdering Facility: [facility] Address: [address] [place] [address] Performed By: #### 2 777-1, , ####[facility] [place] LABORATORYCLIA [id number] [place] [address] [place] Anion gap [Moles/Vol] 10 mmol/L Normal 8-15 [facility] Comment on above: Order Comment: Speci men Type: BLOOD SPECIMENOrdering Facility: [facility] Address: [address] [place] [address] Performed By: #### 2 777-1, , ####[facility] [place] LABORATORYCLIA [id number] [place] [address] [place] Calcium [Mass/Vol] 6.2 mg/dL Low 8.5-10.2 [facility] Comment on above: Order Comment: Speci men Type: BLOOD SPECIMENOrdering Facility: [facility] Address: [address] [place] [address] Performed By: #### 2 777-1, , ####[facility] [place] LABORATORYCLIA [id number] [place] [address] [place] Chloride [Moles/Vol] 117 mmol/L High 98-107 [facility] Comment on above: Order Comment: Speci men Type: BLOOD SPECIMENOrdering Facility: [facility] Address: [address] [place] [address] Performed By: #### 2 777-1, , ####[facility] [place] LABORATORYCLIA [id number] [place] [address] [place] CO2 [Moles/Vol] 15 mmol/L Low 22-30 [facility] Comment on above: Order Comment: Speci men Type: BLOOD SPECIMENOrdering Facility: [facility] Address: [address] [place] [address] Performed By: #### 2 777-1, , ####[facility] [place] LABORATORYCLIA [id number] [place] [address] [place] Creatinine [Mass/Vol] 0.51 mg/dL Low 0.58-0.96 [facility] Comment on above: Order Comment: Speci men Type: BLOOD SPECIMENOrdering Facility: [facility] Address: [address] [place] [address] Performed By: #### 2 777-1, 88403-4, 81854-0 ####[facility] HOSPITALIA [id number] [address] [place] Creatinine and Glomerular filtration rate.predicted panel (S/P/Bld) 93 mL/min/1.73m??? Normal >=60 [facility] Comment on above: Order Comment: Helen rg Type: BLOOD SPECIMENOrdering Facility: [facility] Address: [address] [place] [address] Result Comment: Kaylene mated Glomerular Filtration Rate [...] actual GFR. Performed By: #### 2 777-1, 55442-9, ####[facility] [place] LABORATORYIA [id number] [place] [id number] [place] Glucose [Mass/Vol] 148 mg/dL High 74-99 [facility] Comment on above: Order Comment: Helen rg Type: BLOOD SPECIMENOrdering Facility: [facility] Address: [address] [place] [address] Result Comment: The [place] [employer] (ADA) [...] 2016.39(Suppl 1). Performed By: #### 2 777-1, 55716-1, ####[facility] [place] LABORATORYCLIA [id number] [place] [address] [place] Potassium [Moles/Vol] 3.1 mmol/L Low 3.7-5.1 [facility] Comment on above: Order Comment: Speci men Type: BLOOD SPECIMENOrdering Facility: [facility] Address: [address] [place] [address] Performed By: #### 2 777-1, 70864-5, ####[facility] [place] LABORATORYCLIA [id number] [place] [id number] [place] Sodium [Moles/Vol] 142 mmol/L Normal 136-144 [facility] Comment on above: Order Comment: Speci men Type: BLOOD SPECIMENOrdering Facility: [facility] Address: [address] [place] [address] Performed By: #### 2 777-1, , ####[facility] [place] LABORATORYCLIA [id number] [address] STATES [facility] Urea nitrogen [Mass/Vol] 17 mg/dL Normal 7-21 [facility] Comment on above: Order Comment: Speci men Type: BLOOD SPECIMENOrdering Facility: [facility] Address: [address] [place] [address] Performed By: #### 2 777-1, 31260-2, ####[facility] [place] LABORATORYCLIA [id number] [address] STATES OF [facility] CBC panel Auto (Bld)on 05-07 Erythrocyte distribution width (RBC) [Ratio] 15.8 % High 11.5-15.0 [facility] Comment on above: Order Comment: Speci men Type: BLOOD SPECIMENOrdering Facility: [facility] Address: [address] [place] [address] Performed By: #### 5 8410-2 ####[facility] [place] LABORATORYCLIA [id number] [address] Hematocrit (Bld) [Volume fraction] 27.4 % Low 36.0-46.0 [facility] Comment on above: Order Comment: Speci men Type: BLOOD SPECIMENOrdering Facility: [facility] Address: [address] [place] [address] Performed By: #### 5 8410-2 ####[facility] [place] LABORATORYCLIA [id number] [address] OF [facility] Hemoglobin (Bld) [Mass/Vol] 8.8 g/dL Low 11.5-15.5 [facility] Comment on above: Order Comment: Speci men Type: BLOOD SPECIMENOrdering Facility: [facility] Address: [address] [place] [address] Performed By: #### 5 8410-2 ####[facility] [place] LABORATORYCLIA [id number] [address] [place] MCH (RBC) [Entitic mass] 29.8 pg Normal 26.0-34.0 [facility] Comment on above: Order Comment: Speci men Type: BLOOD SPECIMENOrdering Facility: [facility] Address: [address] [place] [address] Performed By: #### 5 8410-2 ####[facility] [place] LABORATORYCLIA [id number] [address] [place] MCHC (RBC) [Mass/Vol] 32.1 g/dL Normal 30.5-36.0 [facility] Comment on above: Order Comment: Speci men Type: BLOOD SPECIMENOrdering Facility: [facility] Address: [address] [place] [address] Performed By: #### 5 8410-2 ####[facility] [place] LABORATORYCLIA [id number] [address] [place] MCV (RBC) [Entitic vol] 92.9 fL Normal 80.0-100.0 [facility] Comment on above: Order Comment: Speci men Type: BLOOD SPECIMENOrdering Facility: [facility] Address: [address] [place] [address] Performed By: #### 5 8410-2 ####[facility] [place] LABORATORYCLIA [id number] [address] [place] Nucleated RBC (Bld) [#/Vol] 10*3/uL Normal <0.01 [facility] Comment on above: Order Comment: Speci men Type: BLOOD SPECIMENOrdering Facility: [facility] Address: [address] [place] [address] Performed By: #### 5 8410-2 ####[facility] [place] LABORATORYCLIA [id number] [address] [place] Platelet mean volume (Bld) [Entitic vol] 10.8 fL Normal 9.0-12.7 [facility] Comment on above: Order Comment: Speci men Type: BLOOD SPECIMENOrdering Facility: [facility] Address: [address] [place] [address] Performed By: #### 5 8410-2 ####[facility] [place] LABORATORYCLIA [id number] [address] Platelets (Bld) [#/Vol] 250 10*3/uL Normal 150-400 [facility] Comment on above: Order Comment: Speci men Type: BLOOD SPECIMENOrdering Facility: [facility] Address: [address] [place] [address] Performed By: #### 5 8410-2 ####[facility] [place] LABORATORYCLIA [id number] [address] [place] RBC (Bld) [#/Vol] 2.95 10*6/uL Low 3.90-5.20 [facility] Comment on above: Order Comment: Speci men Type: BLOOD SPECIMENOrdering Facility: [facility] Address: [address] [place] [address] Performed By: #### 5 8410-2 ####[facility] [place] LABORATORYCLIA [id number] [address] [place] WBC (Bld) [#/Vol] 12.58 10*3/uL High 3.70-11.00 [facility] Comment on above: Order Comment: Speci men Type: BLOOD SPECIMENOrdering Facility: [facility] Address: [address] [place] [address] Performed By: #### 5 8410-2 ####[facility] [place] LABORATORYCLIA [id number] [address] Erythrocyte distribution width (RBC) [Ratio] 16.0 % High 11.5-15.0 [facility] Comment on above: Order Comment: Speci men Type: BLOOD SPECIMENOrdering Facility: [facility] Address: [address] [place] [address] Performed By: #### 5 8410-2 ####[facility] [place] LABORATORYCLIA [id number] [address] OF [facility] Hematocrit (Bld) [Volume fraction] 21.8 % Low 36.0-46.0 [facility] Comment on above: Order Comment: Speci men Type: BLOOD SPECIMENOrdering Facility: [facility] Address: [address] [place] [address] Performed By: #### 5 8410-2 ####[facility] [place] LABORATORYCLIA [id number] [address] Hemoglobin (Bld) [Mass/Vol] 7.0 g/dL Low 11.5-15.5 [facility] Comment on above: Order Comment: Speci men Type: BLOOD SPECIMENOrdering Facility: [facility] Address: [address] [place] [address] Performed By: #### 5 8410-2 ####[facility] [place] LABORATORYCLIA [id number] [address] MCH (RBC) [Entitic mass] 29.9 pg Normal 26.0-34.0 [facility] Comment on above: Order Comment: Speci men Type: BLOOD SPECIMENOrdering Facility: [facility] Address: [address] [place] [address] Performed By: #### 5 8410-2 ####[facility] [place] LABORATORYCLIA [id number] [address] MCHC (RBC) [Mass/Vol] 32.1 g/dL Normal 30.5-36.0 [facility] Comment on above: Order Comment: Speci men Type: BLOOD SPECIMENOrdering Facility: [facility] Address: [address] [place] [address] Performed By: #### 5 8410-2 ####[facility] [place] LABORATORYCLIA [id number] [address] [place] MCV (RBC) [Entitic vol] 93.2 fL Normal 80.0-100.0 [facility] Comment on above: Order Comment: Speci men Type: BLOOD SPECIMENOrdering Facility: [facility] Address: [address] [place] [address] Performed By: #### 5 8410-2 ####[facility] [place] LABORATORYCLIA [id number] [address] Nucleated RBC (Bld) [#/Vol] 10*3/uL Normal <0.01 [facility] Comment on above: Order Comment: Speci men Type: BLOOD SPECIMENOrdering Facility: [facility] Address: [address] [place] [address] Performed By: #### 5 8410-2 ####[facility] [place] LABORATORYCLIA [id number] [address] OF [place] Platelet mean volume (Bld) [Entitic vol] 10.7 fL Normal 9.0-12.7 [facility] Comment on above: Order Comment: Speci men Type: BLOOD SPECIMENOrdering Facility: [facility] Address: [address] [place] [address] Performed By: #### 5 8410-2 ####[facility] [place] LABORATORYCLIA [id number] [address] OF [place] Platelets (Bld) [#/Vol] 284 10*3/uL Normal 150-400 [facility] Comment on above: Order Comment: Speci men Type: BLOOD SPECIMENOrdering Facility: [facility] Address: [address] [place] [address] Performed By: #### 5 8410-2 ####[facility] [place] LABORATORYCLIA [id number] [address] STATES OF [facility] RBC (Bld) [#/Vol] 2.34 10*6/uL Low 3.90-5.20 [facility] Comment on above: Order Comment: Speci men Type: BLOOD SPECIMENOrdering Facility: [facility] Address: [address] [place] [address] Performed By: #### 5 8410-2 ####[facility] [place] LABORATORYCLIA [id number] [address] OF [place] WBC (Bld) [#/Vol] 10.97 10*3/uL Normal 3.70-11.00 [facility] Comment on above: Order Comment: Speci men Type: BLOOD SPECIMENOrdering Facility: [facility] Address: [address] [place] [address] Performed By: #### 5 8410-2 ####[facility] [place] LABORATORYCLIA [id number] [address] OF [facility] Erythrocyte distribution width (RBC) [Ratio] 16.2 % High 11.5-15.0 [facility] Comment on above: Order Comment: Speci men Type: BLOOD SPECIMENOrdering Facility: [facility] Address: [address] [place] [address] Performed By: #### 5 8410-2 ####[facility] [place] LABORATORYCLIA [id number] [address] OF [facility] Hematocrit (Bld) [Volume fraction] 15.9 % Low 36.0-46.0 [facility] Comment on above: Order Comment: Speci men Type: BLOOD SPECIMENOrdering Facility: [facility] Address: [address] [place] [address] Performed By: #### 5 8410-2 ####[facility] [place] LABORATORYCLIA [id number] [address] [place] Hemoglobin (Bld) [Mass/Vol] 5.0 g/dL Critically low 11.5-15.5 [facility] Comment on above: Order Comment: Speci men Type: BLOOD SPECIMENOrdering Facility: [facility] Address: [address] [place] [address] Performed By: #### 5 8410-2 ####[facility] [place] [facility]ORATORYCLIA [id number] [address] MCH (RBC) [Entitic mass] 29.8 pg Normal 26.0-34.0 [facility] Comment on above: Order Comment: Speci men Type: BLOOD SPECIMENOrdering Facility: [facility] Address: [address] [place] [address] Performed By: #### 5 8410-2 ####[facility] [place] [facility]ORATORYCLIA [id number] [address] MCHC (RBC) [Mass/Vol] 31.4 g/dL Normal 30.5-36.0 [facility] Comment on above: Order Comment: Speci men Type: BLOOD SPECIMENOrdering Facility: [facility] Address: [address] [place] [address] Performed By: #### 5 8410-2 ####[facility] [place] LABORATORYCLIA [id number] [address] MCV (RBC) [Entitic vol] 94.6 fL Normal 80.0-100.0 [facility] Comment on above: Order Comment: Speci men Type: BLOOD SPECIMENOrdering Facility: [facility] Address: [address] [place] [address] Performed By: #### 5 8410-2 ####[facility] [place] [facility]ORATORYCLIA [id number] [address] Nucleated RBC (Bld) [#/Vol] 10*3/uL Normal <0.01 [facility] Comment on above: Order Comment: Speci men Type: BLOOD SPECIMENOrdering Facility: [facility] Address: [address] [place] [address] Performed By: #### 5 8410-2 ####[facility] LABORATORYCLIA [id number] [address] [place] Platelet mean volume (Bld) [Entitic vol] 10.6 fL Normal 9.0-12.7 [facility] Comment on above: Order Comment: Speci men Type: BLOOD SPECIMENOrdering Facility: [facility] Address: [address] [place] [address] Performed By: #### 5 8410-2 ####[facility] LABORATORYCLIA [id number] [place] [address] [place] Platelets (Bld) [#/Vol] 191 10*3/uL Normal 150-400 [facility] Comment on above: Order Comment: Speci men Type: BLOOD SPECIMENOrdering Facility: [facility] Address: [address] [place] [address] Result Comment: No c lot detected. Performed By: #### 5 8410-2 ####[facility] LABORATORYCLIA [id number] [place] [address] [place] RBC (Bld) [#/Vol] 1.68 10*6/uL Low 3.90-5.20 [facility] Comment on above: Order Comment: Speci men Type: BLOOD SPECIMENOrdering Facility: [facility] Address: [address] [place] [address] Performed By: #### 5 8410-2 ####[facility] LABORATORYCLIA [id number] [place] [address] [place] WBC (Bld) [#/Vol] 8.31 10*3/uL Normal 3.70-11.00 [facility] Comment on above: Order Comment: Speci men Type: BLOOD SPECIMENOrdering Facility: [facility] Address: [address] [place] [address] Performed By: #### 5 8410-2 ####[facility] LABORATORYCLIA [id number] [address] [place] CONSULT PROGon 05-07-2024 CONSULT PROG Normal [facility] CT BRAIN WO IVCONon 05-07-[address] BRAIN WO IVCON Normal [facility] CT BRAIN WO IVCON Normal [facility] Calcium.ionized [Moles/Vol]o n 05-07-2024 Calcium.ionized (BldV) [Mass/Vol] 1.06 mmol/L Low 1.08-1.30 [facility] Comment on above: Order Comment: Speci men Type: BLOOD SPECIMENOrdering Facility: [facility] Address: [address] [place] [address] Performed By: #### 1 995-0 ####[facility] LABORATORYCLIA [id number] [address] [place] Calcium.ionized adjusted to pH 7.4 (Bld) [Moles/Vol] 1.07 mmol/L Low 1.08-1.30 [facility] Comment on above: Order Comment: Speci men Type: BLOOD SPECIMENOrdering Facility: [facility] Address: [address] [place] [address] Performed By: #### 1 995-0 ####[facility] LABORATORYCLIA [id number] [address] [place] Calcium.ionized (BldV) [Mass/Vol] 1.07 mmol/L Low 1.08-1.30 [facility] Comment on above: Order Comment: Speci men Type: BLOOD SPECIMENOrdering Facility: [facility] Address: [address] [place] [address] Performed By: #### 1 995-0 ####[facility]ORATORYCLIA [id number] [address] [place] Calcium.ionized adjusted to pH 7.4 (Bld) [Moles/Vol] 1.09 mmol/L Normal 1.08-1.30 [facility] Comment on above: Order Comment: Speci men Type: BLOOD SPECIMENOrdering Facility: [facility] Address: [address] [place] [address] Performed By: #### 1 995-0 ####[facility]ORATORYCLIA [id number] [place] [address] [place] Magnesium SerPl-mCncon 05-07 Magnesium [Mass/Vol] 1.1 mg/dL Low 1.7-2.3 [facility] Comment on above: Order Comment: Speci men Type: BLOOD SPECIMENOrdering Facility: [facility] Address: [address] [place] [address] Performed By: #### 2 777-1, 97961-6, ####[facility]ATORYCLIA [id number] [place] [address] [place] Magnesium [Mass/Vol] 1.5 mg/dL Low 1.7-2.3 [facility] Comment on above: Order Comment: Speci men Type: BLOOD SPECIMENOrdering Facility: [facility] Address: [address] [place] [address] Performed By: #### 2 777-1, , ####[facility] LABORATORYCLIA [id number] [address] [place] NURSING PROGon 05-07-2024 NURSING PROG Normal [facility] NURSING PROG Normal [facility] OPERATIVE NOon 05-07-2024 OPERATIVE NO Normal [facility] Phosphate SerPl-mCncon 05-07 Phosphate [Mass/Vol] 2.1 mg/dL Low 2.7-4.8 [facility] Comment on above: Order Comment: Speci men Type: BLOOD SPECIMENOrdering Facility: [facility] Address: [address] [place] [address] Performed By: #### 2 777-1, , ####[facility]ATORYCLIA [id number] [place] [id number] [place] Phosphate [Mass/Vol] 2.6 mg/dL Low 2.7-4.8 [facility] Comment on above: Order Comment: Speci men Type: BLOOD SPECIMENOrdering Facility: [facility] Address: [address] [place] [address] Performed By: #### 2 777-1, 95455-1, ####[facility]ATORYCLIA [id number] [place] [address] [place] THERAPY NTon 05-07-2024 THERAPY NT Normal [facility] XR ABDOMEN 1V SUPINEon 05-07 XR ABDOMEN 1V SUPINE Normal [facility] XR CHEST 1V FRONTALon 2023 XR CHEST 1V FRONTAL Normal [facility] XR FEMUR 2V AP/LAT LTon XR FEMUR 2V AP/LAT LT Normal [facility] ALLIED HEALTHon 05-06-2024 ALLIED HEALTH Normal [facility] ANES POSTPROC EVALon 024 ANES POSTPROC EVAL Normal [facility] ANES PRE-OPon 05-06-2024 ANES PRE-OP Normal [facility] Basic Metabolic Profile (BMP )on 05-06-2024 BUN/CRE 29.7 RATIO High 10-20 [facility] Comment on above: Performed By: #### L 500.2500, L100.0100 #### [facility] [address] [place], [address] CA,Total 8.6 mg/dL Normal 8.5-10.1 [facility] Comment on above: Performed By: #### L 500.2500, L100.0100 #### [facility] [address] [place], [address] Chloride [Moles/Vol] 109 mmol/L High 98-[address] [facility] Comment on above: Performed By: #### L 500.2500, L100.0100 #### [facility] [address] [place], [address] CO2 [Moles/Vol] 24.0 mmol/L Normal 21.0-32.0 [facility] Comment on above: Performed By: #### L 500.2500, L100.0100 #### [facility] [address] [place], [address] Creatinine [Mass/Vol] 0.57 mg/dL Normal 0.55-1.02 [facility] Comment on above: Result Comment: The validity of the calculated GFR GFRAA in patients over 70 years has not been determined. Clinical correlation is essential. Performed By: #### L 500.2500, L100.0100 #### [facility] [address] [place], [address] ECRCL 60.00 ml/min Normal [facility] Comment on above: Performed By: #### L 500.2500, L100.0100 #### [facility] [address] [place], [address] EST GFR - AA 130 mL/min Normal >60 [facility] Comment on above: Result Comment: Afri can Tristanian GFR Calc Performed By: #### L 500.2500, L100.0100 #### [facility] [address] [place], [address] GAP 7 Normal 5-15 [facility] Comment on above: Performed By: #### L 500.2500, L100.0100 #### [facility] [address] [place], [address] GFR/1.73 sq M.predicted among non-blacks MDRD (S/P/Bld) [Vol rate/Area] 107 mL/min/{1.73_m2} Normal >60 [facility] Comment on above: Result Comment: Non- GFR Calc Performed By: #### L 500.2500, L100.0100 #### [facility] [address] [place], [address] Glucose [Mass/Vol] 134 mg/dL High 74-106 [facility] Comment on above: Result Comment: Fast ing Glucose result greater than or equal to 126 mg/dL suggests DIABETES MELLITUS per A.D.A. criteria. Performed By: #### L 500.2500, L100.0100 #### [facility] [address] [place], [address] Potassium [Moles/Vol] 3.6 mmol/L Normal 3.5-5.1 [facility] Comment on above: Result Comment: Slig ht Hemolysis, Result may be falsely increased. Performed By: #### L 500.2500, L100.0100 #### [facility] [address] [place], [address] Sodium [Moles/Vol] 140 mmol/L Normal 136-145 [facility] Comment on above: Performed By: #### L 500.2500, L100.0100 #### [facility] [address] [place], [address] Urea nitrogen [Mass/Vol] 17 mg/dL Normal 7-18 [facility] Comment on above: Performed By: #### L 500.2500, L100.0100 #### [facility] [address] [place], [address] Basic metabolic 2000 panelon 05-06-2024 Anion gap [Moles/Vol] 11 mmol/L Normal 8-15 [facility] Comment on above: Order Comment: Speci men Type: BLOOD SPECIMENOrdering Facility: [facility] Address: [address] [place] [address] Performed By: #### 2 432-2, ####[facility]ORATORYCLIA [id number] [place] [address] [place] Calcium [Mass/Vol] 8.5 mg/dL Normal 8.5-10.2 [facility] Comment on above: Order Comment: Speci men Type: BLOOD SPECIMENOrdering Facility: [facility] Address: [address] [place] [address] Performed By: #### 2 432-2, ####[facility]ORATORYCLIA [id number] [place] [address] [place] Chloride [Moles/Vol] 103 mmol/L Normal 98-107 [facility] Comment on above: Order Comment: Speci men Type: BLOOD SPECIMENOrdering Facility: [facility] Address: [address] [place] [address] Performed By: #### 2 43206-01, ####[facility]ORATORYCLIA [id number] [place] [id number] [place] [facility] CO2 [Moles/Vol] 24 mmol/L Normal 22-30 [facility] Comment on above: Order Comment: Speci men Type: BLOOD SPECIMENOrdering Facility: [facility] Address: [address] [place] [address] Performed By: #### 2 4320-07, ####[facility]ORATORYCLIA [id number] [address] OF [facility] Creatinine [Mass/Vol] 0.56 mg/dL Low 0.58-0.96 [facility] Comment on above: Order Comment: Speci men Type: BLOOD SPECIMENOrdering Facility: [facility] Address: [address] [place] [address] Performed By: #### 2 4320-07, ####[facility]ORATORYCLIA [id number] [address] Creatinine and Glomerular filtration rate.predicted panel (S/P/Bld) 91 mL/min/1.73m??? Normal >=60 [facility] Comment on above: Order Comment: Speci men Type: BLOOD SPECIMENOrdering Facility: [facility] Address: [address] [place] [address] Result Comment: Kaylene mated Glomerular Filtration Rate [...] actual GFR. Performed By: #### 2 43206-01, ####[facility]ORATORYCLIA [id number] [place] [id number] [place] Glucose [Mass/Vol] 161 mg/dL High 74-99 [facility] Comment on above: Order Comment: Speci men Type: BLOOD SPECIMENOrdering Facility: [facility] Address: [address] [place] [address] Result Comment: The [place] Diabetes [employer] (ADA) [...] 2016.39(Suppl 1). Performed By: #### 2 432-, ####[facility]ORATORYCLIA [id number] [place] [address] [place] Potassium [Moles/Vol] 3.8 mmol/L Normal 3.7-5.1 [facility] Comment on above: Order Comment: Helen rg Type: BLOOD SPECIMENOrdering Facility: [facility] Address: [address] [place] [address] Performed By: #### 2 432-, ####[facility]ORATORYCLIA [id number] [place] [address] [place] Sodium [Moles/Vol] 138 mmol/L Normal 136-144 [facility] Comment on above: Order Comment: Bernardoi men Type: BLOOD SPECIMENOrdering Facility: [facility] Address: [address] [place], [place] [address] Performed By: #### 2 4320-07, ####[facility]ATORYCLIA [id number] [place] [address] [place] Urea nitrogen [Mass/Vol] 15 mg/dL Normal 7-21 [facility] Comment on above: Order Comment: Speci men Type: BLOOD SPECIMENOrdering Facility: [facility] Address: [address] [place] [address] Performed By: #### 2 4321-2, 01227-0 ####[facility]ATORYCLIA [id number] [place] [address] [place] Anion gap [Moles/Vol] 7 mmol/L Low 8-15 [facility] Comment on above: Order Comment: Speci men Type: BLOOD SPECIMENOrdering Facility: [facility] Address: [address] [place] [address] Performed By: #### 1 9123-9, 27711-28, 76085-7 ####[facility]ATORYCLIA [id number] [place] [address] [place] Calcium [Mass/Vol] 3.9 mg/dL Low 8.5-10.2 [facility] Comment on above: Order Comment: Speci men Type: BLOOD SPECIMENOrdering Facility: [facility] Address: [address] [place] [address] Performed By: #### 1 9123-9, 27711-28, 16535-2 ####[facility]ATORYCLIA [id number] [place] [address] [place] Chloride [Moles/Vol] 124 mmol/L High 98-107 [facility] Comment on above: Order Comment: Speci men Type: BLOOD SPECIMENOrdering Facility: [facility] Address: [address] [place] [address] Performed By: #### 1 9123-9, 2776-05, 21241-8 ####[facility]ATORYCLIA [id number] [place] [address] [place] CO2 [Moles/Vol] 12 mmol/L Low 22-30 [facility] Comment on above: Order Comment: Speci men Type: BLOOD SPECIMENOrdering Facility: [facility] Address: [address] [place] [address] Performed By: #### 1 9123-9, 2771, 39443-0 ####[facility]ORATORYCLIA [id number] [place], [place] [address] [place] [address] [place] [facility] Creatinine [Mass/Vol] 0.25 mg/dL Low 0.58-0.96 [facility] Comment on above: Order Comment: Helen rg Type: BLOOD SPECIMENOrdering Facility: [facility] Address: [address] [place] [address] Performed By: #### 1 9123-9, 2777-1, 90439-2 ####[facility]ORATORYCLIA [id number] [address] Creatinine and Glomerular filtration rate.predicted panel (S/P/Bld) 111 mL/min/1.73m??? Normal >=60 [facility] Comment on above: Order Comment: Helen rg Type: BLOOD SPECIMENOrdering Facility: [facility] Address: [address] [place] [address] Result Comment: Kaylene mated Glomerular Filtration Rate [...] GFR. Performed By: #### 1 9123-9, 2777-1, 71781-8 ####[facility]ATORYCLIA [id number] [address] Glucose [Mass/Vol] 94 mg/dL Normal 74-99 [facility] Comment on above: Order Comment: Helen rg Type: BLOOD SPECIMENOrdering Facility: [facility] Address: [address] [place] [address] Result Comment: The [place] Diabetes Association (ADA) [...] 1). Performed By: #### 1 9123-9, 2777-1, 67140-5 ####[facility]ATORYCLIA [id number] [place] [address] [place] Potassium [Moles/Vol] 1.8 mmol/L Critically low 3.7-5.1 [facility] Comment on above: Order Comment: Speci men Type: BLOOD SPECIMENOrdering Facility: [facility] Address: [address] [place] [address] Performed By: #### 1 9123-9, 27711-28, 67034-4 ####[facility]ATORYCLIA [id number] [place] [address] [place] Sodium [Moles/Vol] 143 mmol/L Normal 136-144 [facility] Comment on above: Order Comment: Speci men Type: BLOOD SPECIMENOrdering Facility: [facility] Address: [address] [place] [address] Performed By: #### 1 9123-9, 2776-05, 65090-9 ####[facility]ATORYCLIA [id number] [place] [address] [place] Urea nitrogen [Mass/Vol] 8 mg/dL Normal 7-21 [facility] Comment on above: Order Comment: Speci men Type: BLOOD SPECIMENOrdering Facility: [facility] Address: [address] [place] [address] Performed By: #### 1 9123-9, 27711-28, 21182-5 ####[facility]ATORYCLIA [id number] [place] [address] [place] Anion gap [Moles/Vol] 8 mmol/L Normal 8-15 [facility] Comment on above: Order Comment: Speci men Type: BLOOD SPECIMENOrdering Facility: [facility] Address: [address] [place] [id number] Performed By: #### 2 4321-2 ####[facility]ATORYCLIA [id number] [address] [place] Calcium [Mass/Vol] 3.4 mg/dL Low 8.5-10.2 [facility] Comment on above: Order Comment: Speci men Type: BLOOD SPECIMENOrdering Facility: [facility] Address: [address] [place] [address] Performed By: #### 2 4321-2 ####[facility]ATORYCLIA [id number] [address] [place] Chloride [Moles/Vol] 102 mmol/L Normal 98-107 [facility] Comment on above: Order Comment: Speci men Type: BLOOD SPECIMENOrdering Facility: [facility] Address: [address] [place] [address] Performed By: #### 2 4321-2 ####[facility]ATORYCLIA [id number] [address] OF [facility] CO2 [Moles/Vol] 10 mmol/L Low 22-30 [facility] Comment on above: Order Comment: Speci men Type: BLOOD SPECIMENOrdering Facility: [facility] Address: [address] [place] [address] Performed By: #### 2 4321-2 ####[facility]ORYCLIA [id number] [address] [place] Creatinine [Mass/Vol] 0.25 mg/dL Low 0.58-0.96 [facility] Comment on above: Order Comment: Speci men Type: BLOOD SPECIMENOrdering Facility: [facility] Address: [address] [place] [address] Performed By: #### 2 4321-2 ####[facility]ATORYCLIA [id number] [address] Creatinine and Glomerular filtration rate.predicted panel (S/P/Bld) 111 mL/min/1.73m??? Normal >=60 [facility] Comment on above: Order Comment: Speci men Type: BLOOD SPECIMENOrdering Facility: [facility] Address: [address] [place] [address] Result Comment: Kaylene mated Glomerular Filtration Rate [...] actual GFR. Performed By: #### 2 4321-2 ####[facility]ATORYCLIA [id number] [place] [address] [place] Glucose [Mass/Vol] 85 mg/dL Normal 74-99 [facility] Comment on above: Order Comment: Helen rg Type: BLOOD SPECIMENOrdering Facility: [facility] Address: [address] [place] [address] Result Comment: The [place] Diabetes Association (ADA) [...] 2016.39(Suppl 1). Performed By: #### 2 4321-2 ####[facility]ATORYCLIA [id number] [place] [address] [place] Potassium [Moles/Vol] 1.7 mmol/L Critically low 3.7-5.1 [facility] Comment on above: Order Comment: Helen rg Type: BLOOD SPECIMENOrdering Facility: [facility] Address: [address] [place] [id number] Performed By: #### 2 4321-2 ####[facility]ATORYCLIA [id number] [place] [address] [place] [facility] Sodium [Moles/Vol] 120 mmol/L Low 136-144 [facility] Comment on above: Order Comment: Speci men Type: BLOOD SPECIMENOrdering Facility: [facility] Address: [address] [place] [address] Performed By: #### 2 4321-2 ####[facility]ATORYCLIA [id number] [place] [id number] [place] Urea nitrogen [Mass/Vol] 8 mg/dL Normal 7-21 [facility] Comment on above: Order Comment: Speci men Type: BLOOD SPECIMENOrdering Facility: [facility] Address: [address] [place] [address] Performed By: #### 2 4321-2 ####[facility]ATORYCLIA [id number] [place] [id number] [place] CBC W/Diff, Automatedon 12-0 Absolute Lymph 1.89 X10 3/uL Normal 0.83-4.51 [facility] Comment on above: Performed By: #### L 500.2500, L100.0100 #### [facility] [address] [facility] [place], [address] Absolute Neut 4.9 X10 3/uL Normal 2.0-7.7 [facility] Comment on above: Performed By: #### L 500.2500, L100.0100 #### [facility] [address] [facility] [place], [address] Basophils/100 WBC (Bld) 0.6 % Normal 0-1 [facility] Comment on above: Performed By: #### L 500.2500, L100.0100 #### [facility] [address] [place], [address] Eosinophils/100 WBC (Bld) 2.6 % Normal 0-5 [facility] Comment on above: Performed By: #### L 500.2500, L100.0100 #### [facility] [address] [place], [address] Erythrocyte distribution width (RBC) [Ratio] 15.9 % High 11.6-14.6 [facility] Comment on above: Performed By: #### L 500.2500, L100.0100 #### [facility] [address] [place], [address] Hematocrit (Bld) [Volume fraction] 36.9 % Low 37-47 [facility] Comment on above: Performed By: #### L 500.2500, L100.0100 #### [facility] [address] [place], [address] Hemoglobin (Bld) [Mass/Vol] 11.4 g/dL Low 12.0-15.0 [facility] Comment on above: Performed By: #### L 500.2500, L100.0100 #### [facility] [address] [place], [address] IG% 1.500 High 0.0-0.9 [facility] Comment on above: Result Comment: IG% - Immature Granulocytes (promyelocytes, myelocytes and metamyelocytes) > 1% indicates that a LEFT SHIFT is Present. Performed By: #### L 500.2500, L100.0100 #### [facility] [address] [place], [address] Lymphocytes/100 WBC (Bld) 23.6 % Normal 19-41 [facility] Comment on above: Performed By: #### L 500.2500, L100.0100 #### [facility] [address] [place], [address] MCH (RBC) [Entitic mass] 28.6 pg Normal 27.0-32.0 [facility] Comment on above: Performed By: #### L 500.2500, L100.0100 #### [facility] [address] [place], [address] MCHC (RBC) [Mass/Vol] 30.9 g/dL Low 32-36 [facility] Comment on above: Performed By: #### L 500.2500, L100.0100 #### [facility] [address] [place], [address] MCV (RBC) [Entitic vol] 92.5 fL Normal 81-99 [facility] Company Comment on above: Performed By: #### L 500.2500, L100.0100 #### [facility] [address] [place], [address] Monocytes/100 WBC (Bld) 10.4 % High 0-10 [facility] Comment on above: Performed By: #### L 500.2500, L100.0100 #### [facility] [address] [place], [address] Neutrophils/100 WBC (Bld) 61.3 % Normal 47-70 [facility] Comment on above: Performed By: #### L 500.2500, L100.0100 #### [facility] [address] [place], [address] Nucleated RBC (Bld) [#/Vol] 0 10*3/uL Normal 0-5 [facility] Comment on above: Performed By: #### L 500.2500, L100.0100 #### [facility] [address] [place], [address] Platelet mean volume (Bld) [Entitic vol] 10.7 fL Normal 6.2-12.0 [facility] Comment on above: Performed By: #### L 500.2500, L100.0100 #### [facility] [address] [place], [address] Platelets (Bld) [#/Vol] 373 10*3/uL Normal 150-450 [facility] Comment on above: Performed By: #### L 500.2500, L100.0100 #### [facility] [address] [place], [address] RBC (Bld) [#/Vol] 3.99 10*6/uL Low 4.2-5.4 [facility] Comment on above: Performed By: #### L 500.2500, L100.0100 #### [facility] [address] [place], [address] RDW SD 54.1 fl High 35.1-43.9 [facility] Comment on above: Performed By: #### L 500.2500, L100.0100 #### [facility] [address] [place], [address] WBC (Bld) [#/Vol] 8.0 10*3/uL Normal 4.4-11.0 [facility] Comment on above: Performed By: #### L 500.2500, L100.0100 #### [facility] [address] [place], [address] CBC panel Auto (Bld)on 05-06 Erythrocyte distribution width (RBC) [Ratio] 15.7 % High 11.5-15.0 [facility] Comment on above: Order Comment: Speci men Type: BLOOD SPECIMENOrdering Facility: [facility] Address: [address] [place] [address] Performed By: #### 5 8410-2 ####[facility] LABORATORYCLIA [id number] [address] STATES OF [facility] Hematocrit (Bld) [Volume fraction] 29.8 % Low 36.0-46.0 [facility] Comment on above: Order Comment: Speci men Type: BLOOD SPECIMENOrdering Facility: [facility] Address: [address] [place] [address] Performed By: #### 5 8410-2 ####[facility] LABORATORYCLIA [id number] [address] [place] Hemoglobin (Bld) [Mass/Vol] 9.4 g/dL Low 11.5-15.5 [facility] Comment on above: Order Comment: Speci men Type: BLOOD SPECIMENOrdering Facility: [facility] Address: [address] [place] [address] Performed By: #### 5 8410-2 ####[facility] LABORATORYCLIA [id number] [address] MCH (RBC) [Entitic mass] 29.7 pg Normal 26.0-34.0 [facility] Comment on above: Order Comment: Speci men Type: BLOOD SPECIMENOrdering Facility: [facility] Address: [address] [place] [address] Performed By: #### 5 8410-2 ####[facility] LABORATORYCLIA [id number] [address] MCHC (RBC) [Mass/Vol] 31.5 g/dL Normal 30.5-36.0 [facility] Comment on above: Order Comment: Speci men Type: BLOOD SPECIMENOrdering Facility: [facility] Address: [address] [place] [address] Performed By: #### 5 8410-2 ####[facility] LABORATORYCLIA [id number] [address] MCV (RBC) [Entitic vol] 94.0 fL Normal 80.0-100.0 [facility] Comment on above: Order Comment: Speci men Type: BLOOD SPECIMENOrdering Facility: [facility] Address: [address] [place] [address] Performed By: #### 5 8410-2 ####[facility] LABORATORYCLIA [id number] [address] Nucleated RBC (Bld) [#/Vol] 10*3/uL Normal <0.01 [facility] Comment on above: Order Comment: Speci men Type: BLOOD SPECIMENOrdering Facility: [facility] Address: [address] [place] [address] Performed By: #### 5 8410-2 ####[facility] LABORATORYCLIA [id number] [address] [place] Platelet mean volume (Bld) [Entitic vol] 10.6 fL Normal 9.0-12.7 [facility] Comment on above: Order Comment: Speci men Type: BLOOD SPECIMENOrdering Facility: [facility] Address: [address] [place] [address] Performed By: #### 5 8410-2 ####[facility] LABORATORYCLIA [id number] [place] [address] [place] Platelets (Bld) [#/Vol] 283 10*3/uL Normal 150-400 [facility] Comment on above: Order Comment: Speci men Type: BLOOD SPECIMENOrdering Facility: [facility] Address: [address] [place] [address] Performed By: #### 5 8410-2 ####[facility] LABORATORYCLIA [id number] [address] [place] RBC (Bld) [#/Vol] 3.17 10*6/uL Low 3.90-5.20 [facility] Comment on above: Order Comment: Speci men Type: BLOOD SPECIMENOrdering Facility: [facility] Address: [address] [place] [address] Performed By: #### 5 8410-2 ####[facility] LABORATORYCLIA [id number] [address] [place] WBC (Bld) [#/Vol] 10.85 10*3/uL Normal 3.70-11.00 [facility] Comment on above: Order Comment: Speci men Type: BLOOD SPECIMENOrdering Facility: [facility] Address: [address] [place] [address] Performed By: #### 5 8410-2 ####[facility] LABORATORYCLIA [id number] [address] [place] Erythrocyte distribution width (RBC) [Ratio] 15.9 % High 11.5-15.0 [facility] Comment on above: Order Comment: Speci men Type: BLOOD SPECIMENOrdering Facility: [facility] Address: [address] [place] [address] Performed By: #### 5 8410-2 ####[facility] LABORATORYCLIA [id number] [address] STATES OF [facility] Hematocrit (Bld) [Volume fraction] 34.0 % Low 36.0-46.0 [facility] Comment on above: Order Comment: Speci men Type: BLOOD SPECIMENOrdering Facility: [facility] Address: [address] [place] [address] Performed By: #### 5 8410-2 ####[facility] LABORATORYCLIA [id number] [address] STATES OF [facility] Hemoglobin (Bld) [Mass/Vol] 10.7 g/dL Low 11.5-15.5 [facility] Comment on above: Order Comment: Speci men Type: BLOOD SPECIMENOrdering Facility: [facility] Address: [address] [place] [address] Performed By: #### 5 8410-2 ####[facility] LABORATORYCLIA [id number] [address] [place] MCH (RBC) [Entitic mass] 29.5 pg Normal 26.0-34.0 [facility] Comment on above: Order Comment: Speci men Type: BLOOD SPECIMENOrdering Facility: [facility] Address: [address] [place] [address] Performed By: #### 5 8410-2 ####[facility] LABORATORYCLIA [id number] [address] [place] MCHC (RBC) [Mass/Vol] 31.5 g/dL Normal 30.5-36.0 [facility] Comment on above: Order Comment: Speci men Type: BLOOD SPECIMENOrdering Facility: [facility] Address: [address] [place] [address] Performed By: #### 5 8410-2 ####[facility] LABORATORYCLIA [id number] [address] MCV (RBC) [Entitic vol] 93.7 fL Normal 80.0-100.0 [facility] Comment on above: Order Comment: Speci men Type: BLOOD SPECIMENOrdering Facility: [facility] Address: [address] [place] [address] Performed By: #### 5 8410-2 ####[facility] LABORATORYCLIA [id number] [address] [place] Nucleated RBC (Bld) [#/Vol] 10*3/uL Normal <0.01 [facility] Comment on above: Order Comment: Speci men Type: BLOOD SPECIMENOrdering Facility: [facility] Address: [address] [place] [address] Performed By: #### 5 8410-2 ####[facility] LABORATORYCLIA [id number] [address] Platelet mean volume (Bld) [Entitic vol] 11.2 fL Normal 9.0-12.7 [facility] Comment on above: Order Comment: Speci men Type: BLOOD SPECIMENOrdering Facility: [facility] Address: [address] [place] [address] Performed By: #### 5 8410-2 ####[facility] LABORATORYCLIA [id number] [address] Platelets (Bld) [#/Vol] 355 10*3/uL Normal 150-400 [facility] Comment on above: Order Comment: Speci men Type: BLOOD SPECIMENOrdering Facility: [facility] Address: [address] [place] [address] Performed By: #### 5 8410-2 ####[facility] LABORATORYCLIA [id number] [address] OF [place] RBC (Bld) [#/Vol] 3.63 10*6/uL Low 3.90-5.20 [facility] Comment on above: Order Comment: Speci men Type: BLOOD SPECIMENOrdering Facility: [facility] Address: [address] [place] [address] Performed By: #### 5 8410-2 ####[facility] LABORATORYCLIA [id number] [address] [place] WBC (Bld) [#/Vol] 12.97 10*3/uL High 3.70-11.00 [facility] Comment on above: Order Comment: Speci men Type: BLOOD SPECIMENOrdering Facility: [facility] Address: [address] [place] [address] Performed By: #### 5 8410-2 ####[facility] LABORATORYCLIA [id number] [address] OF [place] CONSULTon 05-06-2024 CONSULT Normal [facility] CONSULT Normal [facility] CONSULT Normal [facility] CT ABD/PEL W IVCONon 024 CT ABD/PEL W IVCON Normal [facility] CT BRAIN WO IVCONon 05-06-[address] BRAIN WO IVCON Normal [facility] CT BRAIN WO IVCON Invalid Interpretation Code [facility] Calcium.ionized [Moles/Vol]o n 05-06-2024 Calcium.ionized (BldV) [Mass/Vol] 0.96 mmol/L Low 1.08-1.30 [facility] Comment on above: Order Comment: Speci men Type: BLOOD SPECIMENOrdering Facility: [facility] Address: [address] [place] [address] Performed By: #### 1 995-0 ####[facility] LABORATORYCLIA [id number] [address] Calcium.ionized adjusted to pH 7.4 (Bld) [Moles/Vol] 0.91 mmol/L Low 1.08-1.30 [facility] Comment on above: Order Comment: Speci men Type: BLOOD SPECIMENOrdering Facility: [facility] Address: [address] [place] [id number] Performed By: #### 1 995-0 ####[facility] LABORATORYCLIA [id number] [address] [place] ED NOTEon 05-06-2024 ED NOTE HNO ID: [id number] Author: RADHAMES YU RN Service: ? Author Type: Registered Nurse Type: ED Notes Filed: 05/06/2024 07:05 Note Text: Report given to Earline GUEVARA [facility] ED NOTE HNO ID: [id number] Author: WILBERT YOUNG RN Service: ? Author Type: Registered Nurse Type: ED Notes Filed: 05/06/2024 06:52 Note Text: Lab called this RN and needed a redraw for global hemostasis with lysis r/t time it took to arrive in lab. [facility] ED NOTE HNO ID: [id number] Author: RADHAMES YU RN Service: ? Author Type: Registered Nurse Type: ED Notes Filed: 05/06/2024 04:47 Note Text: Surgery resident and ortho resident at bedside. Knee immobilizer placed on pt by ortho resident [facility] ED NOTE HNO ID: [id number] Author: RADHAMES YU RN Service: ? Author Type: Registered Nurse Type: ED Notes Filed: 05/06/2024 04:17 Note Text: CT after Feiba [facility] ED NOTE HNO ID: [id number] Author: RADHAMES YU RN Service: ? Author Type: Registered Nurse Type: ED Notes Filed: 05/06/2024 03:49 Note Text: Pt returned from CT. C[facility]ORTER with pt at this time [facility] ED NOTE HNO ID: [id number] Author: HEIDY TAVERAS RN Service: ? Author Type: Registered Nurse Type: ED Notes Filed: 05/06/2024 03:38 Note Text: Pharmacy notified, preparing FEIBA at this time. [facility] ED NOTE HNO ID: [id number] Author: RADHAMES YU RN Service: ? Author Type: Registered Nurse Type: ED Notes Filed: 05/06/2024 03:31 Note Text: CT notified [facility] ED NOTE HNO ID: [id number] Author: HEIDY TAVERAS RN Service: ? Author Type: Registered Nurse Type: ED Notes Filed: 05/06/2024 03:20 Note Text: Neurosurgery provider at bedside speaking w daughter / POA. Pt in XR at this time. Normal [facility] ED NOTE HNO ID: [id number] Author: CAROL MOTA RN Service: Nursing Author Type: Registered Nurse Type: ED Notes Filed: 05/06/2024 03:15 Note Text: Report given to ISMAEL Jacobo. Normal [facility] ED NOTE HNO ID: [id number] Author: CAROL MOTA RN Service: Nursing Author Type: Registered Nurse Type: ED Notes Filed: 05/06/2024 02:44 Note Text: XR notified pt is ready for scan. Normal [facility] ED PROV NOTEon 05-06-2024 ED PROV NOTE Normal [facility] ED PROV NOTE Normal [facility] GLOBAL HEMOSTASIS WITH LYSIS on 05-06-2024 Clot Lysis 30 Min post maximum clot amplitude TEG (Bld) [Length fraction] 0.0 % Normal 0.0-2.6 [facility] Comment on above: Order Comment: Speci men Type: BLOOD SPECIMENOrdering Facility: [facility] Address: [address] [place] [address] Performed By: #### T EGLYS ####[facility] LABORATORYCLIA [id number] [address] [place] Clotting time.extrinsic coagulation system activated Rotational TEG (Bld) 4.5 minutes Low 4.6-9.1 [facility] Comment on above: Order Comment: Speci men Type: BLOOD SPECIMENOrdering Facility: [facility] Address: [address] [place] [address] Performed By: #### T EGLYS ####[facility] LABORATORYCLIA [id number] [address] Maximum clot firmness.extrinsic coagulation system activated.platelets inhibited Rotational TEG (Bld) [Length] 67.3 mm Normal 52.0-70.0 [facility] Comment on above: Order Comment: Speci men Type: BLOOD SPECIMENOrdering Facility: [facility] Address: [address] [place] [address] Result Comment: 29.3 Performed By: #### T EGLYS ####[facility] LABORATORYCLIA [id number] [address] STATES [place] THROMBOGRAPH INTERP Normal [facility] Comment on above: Order Comment: Helen rg Type: BLOOD SPECIMENOrdering Facility: [facility] Address: [address] [place] [address] Result Comment: A th romboelastograph (TEG) study [...] timely manner. Performed By: #### T EGLYS ####[facility] LABORATORYCLIA [id number] [address] STATES [place] HISTORY PHYSICALon HISTORY PHYSICAL Normal [facility] HISTORY PHYSICAL Normal [facility] Magnesium SerPl-mCncon 05-06 Magnesium [Mass/Vol] 1.8 mg/dL Normal 1.7-2.3 [facility] Comment on above: Order Comment: Helen rg Type: BLOOD SPECIMENOrdering Facility: [facility] Address: [address] [place] [address] Performed By: #### 2 4321-2, 19006-6 ####[facility] LABORATORYCLIA [id number] [address] Magnesium [Mass/Vol] 0.8 mg/dL Low 1.7-2.3 [facility] Comment on above: Order Comment: Helen rg Type: BLOOD SPECIMENOrdering Facility: [facility] Address: [address] [place] [address] Performed By: #### 1 9123-9, 2777-1, 47351-4 ####[facility] LABORATORYCLIA [id number] [address] OF [facility] OPERATIVE NOon 05-06-2024 OPERATIVE NO Normal [facility] PT panel Coag (PPP)on 2023 INR Coag (PPP) [Relative time] {INR} Low 0.9-1.3 [facility] Comment on above: Order Comment: Speci men Type: BLOOD SPECIMENOrdering Facility: [facility] Address: [address] [place] [address] Result Comment: Ofelia min K Antagonist (VKA) [...] al. Chest 2012, 141:7S-47SNishimura RA, et al. [facility] 2017, 70: 252-289 Performed By: #### 3 4528-0 ####[facility] LABORATORYCLIA [id number] [address] [place] PT Coag (PPP) [Time] 9.5 s Low 9.7-13.0 [facility] Comment on above: Order Comment: Speci men Type: BLOOD SPECIMENOrdering Facility: [facility] Address: [address] [place] [address] Performed By: #### 3 4528-0 ####[facility] LABORATORYCLIA [id number] [place] [address] [place] Partial Thromboplast Timeon 05-06-2024 aPTT Coag (Bld) [Time] 26.8 s Normal 24.1-36.2 [facility] Comment on above: Performed By: #### L 300.4310, L300.3900 #### [facility] [address] [place], [address] Phosphate SerPl-mCncon 05-06 Phosphate [Mass/Vol] 1.7 mg/dL Low 2.7-4.8 [facility] Comment on above: Order Comment: Speci men Type: BLOOD SPECIMENOrdering Facility: [facility] Address: [address] [place] [address] Performed By: #### 1 9123-9, 2777-1, 27285-9 ####[facility] [id number] [address] [place] Prothrombin Time w/INRon INR Coag (PPP) [Relative time] 1.1 {INR} Normal [facility] Comment on above: Performed By: #### L 300.4310, L300.3900 #### [facility] [address] [place], [address] PT Coag (PPP) [Time] 14.1 s Normal 11.7-14.[address] [facility] Comment on above: Performed By: #### L 300.4310, L300.3900 #### [facility] [address] [place], [address] STAPHYLOCOCCUS AUREUS AND MR SA SCREEN, PCR, NASALon 05-06-2024 S. aureus and MRSA panel ANKIT+probe (Nose) Not detected Normal Not Detected [facility] Comment on above: Order Comment: Speci men Type: SWABOrdering Facility: [facility] Address: [address] [place] [address] Performed By: #### S APCR ####[facility] LABORATORYCLIA [id number] [place] [address] [place] TYPE + SCREENon 05-06-2024 ABO O Normal [facility] Comment on above: Order Comment: Speci men Type: BLOOD SPECIMENOrdering Facility: [facility] Address: [address] [place] [address] Performed By: #### T SCR ####[facility] BLOOD BANKCLIA [id number] [place] [id number] [place] Rh Nom (Bld) Positive Normal [facility] Comment on above: Order Comment: Speci men Type: BLOOD SPECIMENOrdering Facility: [facility] Address: [address] [place] [address] Performed By: #### T SCR ####[facility] BLOOD BANKCLIA [id number] [address] [place] TYPE AND SCREEN EXPIRATION 05/09/2024 23:59 Normal [facility] Comment on above: Order Comment: Speci men Type: BLOOD SPECIMENOrdering Facility: [facility] Address: [address] [place] [address] Performed By: #### T SCR ####[facility] BLOOD BANKCLIA [id number] [address] OF [place] XR ANKLE 3V AP/LAT/OBL LTon 05-06-2024 XR ANKLE 3V AP/LAT/OBL LT Normal [facility] XR CHEST 1V FRONTALon 2023 XR CHEST 1V FRONTAL Normal [facility] XR FEMUR 2V AP/LAT LTon XR FEMUR 2V AP/LAT LT Normal [facility] XR HIP 3V PELV+ AP/LAT LTon 05-06-2024 XR HIP 3V PELV+ AP/LAT LT Normal [facility] XR HIP 3V PELV+ AP/LAT RTon 05-06-2024 XR HIP 3V PELV+ AP/LAT RT Normal [facility] aPTT PPPon 05-06-2024 aPTT Coag (PPP) [Time] 27.0 s Normal 23.0-32.4 [facility] Comment on above: Order Comment: Speci men Type: BLOOD SPECIMENOrdering Facility: [facility] Address: [address] [place] [address] Performed By: #### 1 4979-9 ####[facility] LABORATORYCLIA [id number] [place] [address] [place] 25-hydroxyvitamin D3 [Mass/V ol]on 05-05-2024 Interpretation and review of laboratory results Normal [facility] The reference range interval was based on an analysis of samples from healthy adults and may not pertain to children from 0-18 years old. [facility] Absolute neutrophil countOrd ered By: Arden Leger on 05-05-2024 Neutrophils (Bld) [#/Vol] 4.9 10*3/uL 2.0-7.7 [facility] Basophil percentageOrdered B y: Arden Leger on 05-05-2024 Basophils/100 WBC (Bld) 0.6 % 0-1 [facility] Blood urea nitrogen (BUN)/cr eatinine ratioOrdered By: Arden Leger on 05-05-2024 Urea nitrogen/Creatinine [Mass ratio] 29.7 mg/mg High 10-20 [facility] Brain/Head without Contrasto n 05-05-2024 Brain/Head without Contrast [facility] Services [address] [place], [place] [address] Brain/Head without Contrast MR#: [id number] Acct: [id number] Name: MIRIAM DAVENPORT Rep #: [id number] : 1940 F 84 From: Raj Moody MD PCP: Dr. Guillaume Dominguez MD Status: REG ER Study: Brain/Head without Contrast Date of Exam: 11/21 Exam# [id number] Ordering Dr: Arden Leger MD ADDENDUM by Dr. Raj Moody MD on 05/06/24 at 0002 [id number] EXAM: CT HEAD WITHOUT INTRAVENOUS CONTRAST CLINICAL [...] be sent when the communication is complete. [id number] EXAM: CT HEAD WITHOUT INTRAVENOUS CONTRAST CLINICAL [...] the rig (more content not included)... Normal [facility] CBC panel Auto (Bld)on 05-05 Erythrocyte distribution width (RBC) [Ratio] 16.0 % High 11.5 - 15.0 % [facility] Hematocrit (Bld) [Volume fraction] 38.2 % 36.0 - 46.0 % [facility] Hemoglobin (Bld) [Mass/Vol] 12.1 g/dL 11.5 - 15.5 g/dL [facility] Interpretation and review of laboratory results Abnormal [facility] MCH (RBC) [Entitic mass] 28.8 pg 26.0 - 34.0 pg [facility] MCHC (RBC) [Mass/Vol] 31.7 g/dL 30.5 - 36.0 g/dL [facility] MCV (RBC) [Entitic vol] 91.0 fL 80.0 - 100.0 fL [facility] Nucleated RBC (Bld) [#/Vol] NINF [facility] Platelet mean volume (Bld) [Entitic vol] 10.0 fL 9.0 - 12.7 fL [facility] Platelets (Bld) [#/Vol] 362 10*3/uL [facility] RBC (Bld) [#/Vol] 4.20 10*6/uL 3.90 - 5.2 0 m/uL [facility] WBC (Bld) [#/Vol] 6.62 10*3/uL [facility] Carbon dioxide measurementOr dered By: Arden Leger on 05-05-2024 CO2 [Moles/Vol] 24.0 mmol/L 21.0-32.0 [facility] Chloride measurementOrdered By: Arden Leger on 05-05-2024 Chloride [Moles/Vol] 109 mmol/L High 98-[address] [facility] Cobalamin (Vitamin B12) [Mas s/Vol]on 05-05-2024 Interpretation and review of laboratory results Normal [facility] [facility] panelOrdered By: Hayley Mark on 05-05-2024 Albumin [Mass/Vol] 3.6 g/dL Low 3.9 - 4.9 g/dL [facility] ALP [Catalytic activity/Vol] 147 U/L High 34 - 123 U/L [facility] ALT [Catalytic activity/Vol] 9 U/L 7 - 38 U/L [facility] Anion gap [Moles/Vol] 14 mmol/L 8 - 15 mmol/L [facility] AST [Catalytic activity/Vol] 15 U/L 13 - 35 U/L [facility] Bilirubin [Mass/Vol] 0.2 mg/dL 0.2 - 1 .3 mg/dL [facility] Calcium [Mass/Vol] 9.7 mg/dL 8.5 - 10. 2 mg/dL [facility] Chloride [Moles/Vol] 102 mmol/L 98 - 10 7 mmol/L [facility] CO2 [Moles/Vol] 22 mmol/L 22 - 30 mmol/L [facility] Creatinine [Mass/Vol] 0.59 mg/dL 0.58 - 0.96 mg/dL [facility] GFR/1.73 sq M.predicted among non-blacks MDRD (S/P/Bld) [Vol rate/Area] 90 mL/min/{1.73_m2} - PINF [facility] Comment on above: Estimated Glomerular Filtration [...] 164 mg/dL High 74 - 99 mg/dL [facility] Comment on above: The [employer] [...] Interpretation and review of laboratory results Abnormal [facility] Potassium [Moles/Vol] 3.8 mmol/L 3.7 - 5.1 mmol/L [facility] Protein [Mass/Vol] 6.8 g/dL 6.3 - 8.0 g/dL [facility] Sodium [Moles/Vol] 138 mmol/L 136 - 144 mmol/L [facility] Urea nitrogen [Mass/Vol] 18 mg/dL 7 - 21 mg/dL [facility] Emergency Department Summary on 05-05-2024 Emergency Department Summary [facility] Medical Records Department [address] [place] [address] Emergency Department Summary 05/05/24 MR#: [id number] Acct: [id number] Name: MIRIAM DAVENPORT Rep #: [id number] : 1940 84 From: Arden Leger MD [...] time in the [facility], then went to [facility]. She recently went back to assisted living [...] that she is the patient's power of title attorney and makes all her decisions because of the dementia. She states that her mother has multiple allergies, but morphine would be the most effective in treating her pain given her multiple allergies. [facility] Medical History History of pernicious anemia History [...] Status D (more content not included)... Normal [facility] Eosinophil percentageOrdered By: Arden Leger on 05-05-2024 Eosinophils/100 WBC (Bld) 2.6 % 0-5 [facility] Erythrocyte distribution wid th (RBC) [Ratio]Ordered By: Arden Leger on 05-05-2024 Erythrocyte distribution width (RBC) [Entitic vol] 54.1 fL High 35.1-43.9 [facility] Erythrocyte distribution wid th ratioOrdered By: Arden Leger on 05-05-2024 Erythrocyte distribution width (RBC) [Ratio] 15.9 % High 11.6-14.6 [facility] Estimated glomerular filtrat ion rate (GFR) AmericanOrdered By: Arden Leger on 05-05-2024 Estimated GFR (MDRD) Amer 130 mL/min >60 [facility] Comment on above: GFR Calc Estimation of creatinine gin aranceOrdered By: Arden Leger on 05-05-2024 Estimated Creatinine Clearance Calc 60.00 ml/min [facility] Glomerular filtration rate ( GFR) estimationOrdered By: Arden Leger on 05-05-2024 Estimated GFR (MDRD) Non-Af Amer 107 mL/min >60 [facility] Comment on above: Non- GFR Calc Glucose measurementOrdered B y: Arden Leegr on 05-05-2024 Glucose [Mass/Vol] 134 mg/dL High 74-106 [facility] Comment on above: Fasting Glucose resu lt greater than or equal to 126 mg/dL suggests DIABETES MELLITUS per A.D.A. criteria. Hematocrit Auto (Bld) [Volum e fraction]Ordered By: Arden Leger on 05-05-2024 Hematocrit (Bld) [Volume fraction] 36.9 % Low 37-47 [facility] Hemoglobin measurementOrdere d By: Arden Leger on 05-05-2024 Hemoglobin (Bld) [Mass/Vol] 11.4 g/dL Low 12.0-15.0 [facility] Immature granulocytes/100 WB C Auto (Bld)Ordered By: Arden Leger on 05-05-2024 Immature granulocytes/100 WBC (Bld) 1.500 % High 0.0-0.9 [facility] Comment on above: IG% - Immature Granu locytes (promyelocytes, myelocytes and metamyelocytes) > 1% indicates that a LEFT SHIFT is Present. International normalized rat io (INR) calculationOrdered By: Arden Leger on 05-05-2024 INR Coag (Bld) [Relative time] 1.1 {INR} [facility] Lymphocytes Auto (Unsp spec) [#/Vol]Ordered By: Arden Leger on 05-05-2024 Lymphocytes (Bld) [#/Vol] 1.89 10*3/uL 0.83-4.51 [facility] Lymphocytes/100 WBC Auto (Un sp spec)Ordered By: Arden Leger on 05-05-2024 Lymphocytes/100 WBC (Bld) 23.6 % 19-41 [facility] MCV (mean corpuscular volume ) determinationOrdered By: Arden Leger on 05-05-2024 MCV (RBC) [Entitic vol] 92.5 fL 81-99 [facility] Mean corpuscular hemoglobin (MCH) determinationOrdered By: Arden Leger on 05-05-2024 MCH (RBC) [Entitic mass] 28.6 pg 27.0-32.0 [facility] Mean corpuscular hemoglobin concentration (MCHC) determinationOrdered By: Arden Leger on 05-05-2024 MCHC (RBC) [Mass/Vol] 30.9 g/dL Low 32-36 [facility] Mean platelet volume determi nationOrdered By: Arden Leger on 05-05-2024 Platelet mean volume (Bld) [Entitic vol] 10.7 fL 6.2-12.0 [facility] Monocyte percentageOrdered B y: Arden Leger on 05-05-2024 Monocytes/100 WBC (Bld) 10.4 % High 0-10 [facility] Neutrophil percentageOrdered By: Arden Leger on 05-05-2024 Neutrophils/100 WBC (Bld) 61.3 % 47-70 [facility] Nucleated red blood cell per centageOrdered By: Arden Leger on 05-05-2024 Nucleated RBC/100 WBC (Bld) [Ratio] 0 % 0-5 [facility] Platelet countOrdered By: Hilton Leger on 05-05-2024 Platelets (Bld) [#/Vol] 373 10*3/uL 150-450 [facility] Potassium measurementOrdered By: Arden Leger on 05-05-2024 Potassium [Moles/Vol] 3.6 mmol/L 3.5-5.1 [facility] Comment on above: Slight Hemolysis, Re sult may be falsely increased. Prothrombin timeOrdered By: Arden Leger on 05-05-2024 PT Coag (PPP) [Time] 14.1 s 11.7-14.[address] [facility] RBC Auto (Bld) [#/Vol]Ordere d By: Arden Leger on 05-05-2024 RBC (Bld) [#/Vol] 3.99 10*6/uL Low 4.2-5.4 [facility] Serum anion gap measurementO rdered By: Arden Leger on 05-05-2024 Anion gap [Moles/Vol] 7 mmol/L 5-15 [facility] Serum or plasma calcium jessi urement (mass/volume)Ordered By: Arden Leger on 05-05-2024 Calcium [Mass/Vol] 8.6 mg/dL 8.5-10.1 [facility] Serum or plasma creatinine m easurement (mass/volume)Ordered By: Arden Leger on 05-05-2024 Creatinine [Mass/Vol] 0.57 mg/dL 0.55-1.02 [facility] Comment on above: The validity of the calculated GFR & GFRAA in patients over 70 years has not been determined. Clinical correlation is essential. Serum or plasma urea nitroge n measurement (mass/volume)Ordered By: Arden Leger on 05-05-2024 Urea nitrogen [Mass/Vol] 17 mg/dL 7-18 [facility] Sodium levelOrdered By: Arden Leger on 05-05-2024 Sodium [Moles/Vol] 140 mmol/L 136-145 [facility] Spine Cervical without Contr ason 05-05-2024 Spine Cervical without Contras [facility] Imaging Services [address] [place] [address] Spine Cervical without Contras MR#: [id number] Acct: [id number] Name: MIRIAM DAVENPORT Rep #: [id number] : 1940 F 84 From: Raj Moody MD PCP: Dr. Guillaume Dominguez MD Status: PRE ER Study: Spine Cervical without Contras Date of Exam: 07/06/23 Exam# [id number] Ordering [place]: [place] [id number] EXAM: CT CERVICAL SPINE WITHOUT INTRAVENOUS CONTRAST [...] Arden Leger MD; Dr. Guillaume Dominguez MD [employer]: Signed Normal [facility] Spine Lumbar without Contras ton 05-05-2024 Spine Lumbar without Contrast [facility] Imaging Services [address] [place] [id number] Spine Lumbar without Contrast MR#: [id number] Acct: [id number] Name: MIRIAM DAVENPORT Rep #: [id number] : 1940 F 84 From: Raj Moody MD PCP: Dr. Guillaume Dominguez MD Status: PRE ER Study: Spine Lumbar without Contrast Date of Exam: Exam# [id number] Ordering [place]: [place] [id number] EXAM: CT LUMBAR SPINE WITHOUT INTRAVENOUS CONTRAST [...] Arden Leger MD; Dr. Guillaume Dominguez MD [employer]: Signed Normal [facility] Spine Thoracic without Contr ason 05-05-2024 Spine Thoracic without Contras [facility] Imaging Services [address] [place] [id number] Spine Thoracic without Contras MR#: [id number] Acct: [id number] Name: MIRIAM DAVENPORT Rep #: [id number] : 1940 F 84 From: Raj Moody MD PCP: Dr. Guillaume Dominguez MD Status: PRE ER Study: Spine Thoracic without Contras Date of Exam: 07/06/23 Exam# [id number] Ordering [place]: [place] [id number] EXAM: CT THORACIC SPINE WITHOUT INTRAVENOUS CONTRAST [...] thoracic spine. 2. Degenerative changes. Electronically Signed: Rja Moody MD at 0:05 EST , CC: Dr. Arden Leger MD; Dr. Guillaume Dominguez MD [employer]: Signed Normal [facility] Urinalysis, Completeon 05-05 BACTERIA Normal None Seen [facility] Comment on above: Order Comment: 303-2 Result Comment: PT D ISCHARGED Performed By: #### L 503.0106, L501.9985 #### [facility] [address] [place], [address] BILIRUBIN URINE Normal Negative [facility] Comment on above: Order Comment: 303- Result Comment: PT D ISCHARGED Performed By: #### L 503.0106, L501.9985 #### [facility] [address] [place], [address] Clarity (U) Normal Clear [facility] Comment on above: Order Comment: 303-2 Result Comment: PT D ISCHARGED Performed By: #### L 503.0106, L501.9985 #### [facility] [address] [place], [address] Color (U) Normal Yellow [facility] Comment on above: Order Comment: 303-2 Result Comment: PT D ISCHARGED Performed By: #### L 503.0106, L501.9985 #### [facility] [address] [place], [address] EPI,SQUAMOUS Normal 5-10 [facility] Comment on above: Order Comment: 303-2 Result Comment: PT D ISCHARGED Performed By: #### L 503.0106, L501.85 #### [facility] [address] [place], [address] GLUCOSE, UR Normal Normal [facility] Comment on above: Order Comment: 303-2 Result Comment: PT D ISCHARGED Performed By: #### L 503.0106, L501.85 #### [facility] [address] [place], [address] KETONE UR Normal Negative [facility] Comment on above: Order Comment: 303-2 Result Comment: PT D ISCHARGED Performed By: #### L 503.0106, L501.85 #### [facility] [address] [place], [address] LEUK ESTERASE Normal Negative [facility] Comment on above: Order Comment: 303-2 Result Comment: PT D ISCHARGED Performed By: #### L 503.0106, L501.85 #### [facility] [address] [place], [address] Mucus Ql (Urine sed) Normal [facility] Comment on above: Order Comment: 303-2 Result Comment: PT D ISCHARGED Performed By: #### L 503.0106, L501.85 #### [facility] [address] [place], [address] Nitrite Ql (U) Normal Negative [facility] Comment on above: Order Comment: 303-2 Result Comment: PT D ISCHARGED Performed By: #### L 503.0106, L501.85 #### [facility] [address] [place], [address] OCCULT BLOOD-UR Normal Negative [facility] Comment on above: Order Comment: 303-2 Result Comment: PT D ISCHARGED Performed By: #### L 503.0106, L5.85 #### [facility] [address] [place], [address] pH UR Normal 5.0 - 8.0 [facility] Comment on above: Order Comment: Result Comment: PT D ISCHARGED Performed By: #### L 503.0106, L501.9985 #### [facility] [address] [place], [address] PROT DIPSTX Normal Negative [facility] Comment on above: Order Comment: Result Comment: PT D ISCHARGED Performed By: #### L 503.0106, L501.9985 #### [facility] [address] [place], [address] RBC Normal 0-5 [facility] Comment on above: Order Comment: Result Comment: PT D ISCHARGED Performed By: #### L 503.0106, L501.9985 #### [facility] [address] [place], [address] SP.GR. DIPSTX Normal 1.002-1.030 [facility] Comment on above: Order Comment: Result Comment: PT D ISCHARGED Performed By: #### L 503.0106, L501.9985 #### [facility] [address] [place], [address] UR Preservative Normal [facility] Comment on above: Order Comment: Result Comment: PT D ISCHARGED Performed By: #### L 503.0106, L501.9985 #### [facility] [address] [place], [address] UROBILI Normal Normal [facility] Comment on above: Order Comment: Result Comment: PT D ISCHARGED Performed By: #### L 503.0106, L501.9985 #### [facility] [address] [place], [address] WBC Normal 0-5 [place] [facility] Comment on above: Order Comment: 303-2 Result Comment: PT D ISCHARGED Performed By: #### L 503.0106, L501.9985 #### [facility] [address] [place], [address] VITAMIN B12on 05-05-2024 Cobalamin (Vitamin B12) [Mass/Vol] 473 pg/mL 232 - 1245 pg/mL [facility] VITAMIN D 25 HYDROXYon 05-05 25-hydroxyvitamin D3 [Mass/Vol] 58.3 ng/mL 31.0 - 80.0 ng/mL [facility] Comment on above: Classification of 25 [place] Vitamin D status: Deficiency/Insufficiency: < or = 30 ng/ml. Sufficiency/Optimal Levels: 31-80 ng/mL Toxicity: > 100 ng/mL. Test performed by chemiluminescent immunoassay. 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 1997 MORBID OBESITY 08/18/2007 Obstructive sleep apnea Sleep study 2003 Occlusion and stenosis of carotid artery without mention of cerebral infarction 03/09/2006 mild stenosis shown on u/s at [facility] u/s repeated 02/02/07 with no change [...] DATE: March 30, 2024 TIME: 7:05 AM [facility] OPERATIVE NOon 03-30-2024 OPERATIVE NO HNO ID: [id number] Author: MORAIMA MONTELONGO MD Service: Pain Management Author Type: Physician Type: Operative Report Filed: 03/30/2024 08:12 Note Text: PATIENT NAME: Miriam Davenport SERVICE DATE: 03/30/2024 PROCEDURE NOTE PREOPERATIVE DIAGNOSIS(ES) Lumbar radiculopathy Lumbar disc displacement Lumbar canal stenosis without neurogenic claudication Lumbar DDD POSTOPERATIVE DIAGNOSIS(ES): Same PROCEDURE: Left L4-5 lumbar transforaminal epidural steroid injection under fluoroscopy. Marine Electronics Technician(s): None, I performed the entire procedure. ANESTHESIA: [...] March 30, 2024 TIME: 8:12 AM Normal [facility] ABSCESS AND WOUND CULTURE WI TH GRAM STAINon 08-02-2023 Bacteria identified Cx Nom (Wound) Few Pseudomonas aeruginosa Abnormal [facility] Bacteria identified Cx Nom (Wound) Few Escherichia coli Abnormal [facility] Bacteria identified Cx Nom (Wound) Few skin kj [facility] Bacteria identified Cx Nom ( Wound)on 08-02-2023 Microscopic observation Smear Nom (Unsp spec) Negative Abnormal [facility] Microscopic observation Smear Nom (Unsp spec) Positive Abnormal [facility] Microscopic observation Smear Nom (Unsp spec) No Polymorphonuclear Leukocytes Abnormal [facility] FUNGAL SCREENon 08-01-2023 Fungus identified Cx Nom (Unsp spec) Rare Damian glabrata Abnormal [facility] ABSCESS AND WOUND CULTURE WI TH GRAM STAINon 07-29-2023 Bacteria identified Cx Nom (Wound) Invalid Interpretation Code [facility] DBT Breast - right diagnosti c for implanton 07-21-2023 [facility] Absolute lymphocyte countOrd ered By: Kerwin Kumar on 06-12-2023 Lymphocytes Auto (Unsp spec) [#/Vol] 0.80 10*3/uL 0.83-4.51 [facility] Basophil percentageOrdered B y: Kerwin Kumar on 06-12-2023 Basophil percentage 0-5 SEEN /hpf 0-5 [facility] Basophils/100 WBC (Bld) 0.4 % 0-1 [facility] Chloride [Moles/Vol] 99 mmol/L 98-[address] [facility] Eosinophils/100 WBC (Bld) 0.0 % 0-5 [facility] Glucose [Mass/Vol] 268 mg/dL 74-106 [facility] Comment on above: Glucose result great er than or equal to 200 mg/dLsuggests DIABETES MELLITUS per A.D.A. criteria. Neutrophils (Bld) [#/Vol] 13.7 10*3/uL 2.0-7.7 [facility] Neutrophils/100 WBC (Bld) 86.2 % 47-70 [facility] Potassium [Moles/Vol] 3.8 mmol/L 3.5-5.1 [facility] Sodium [Moles/Vol] 132 mmol/L 136-145 [facility] WBC (Bld) [#/Vol] 15.9 10*3/uL 4.4-11.0 [facility] Bilirubin Test strip Ql (U)O rdered By: Kerwin Kumar on 06-12-2023 Bilirubin Ql (U) Negative Negative [facility] Blood erythrocytes count (nu mber/volume)Ordered By: Kerwin Kumar on 06-12-2023 RBC (Bld) [#/Vol] 4.54 10*6/uL 4.2-5.4 [facility] Blood hemoglobin measurement (mass/volume)Ordered By: Kerwin Kumar on 06-12-2023 Hemoglobin (Bld) [Mass/Vol] 12.8 g/dL 12.0-15.0 [facility] Blood lymphocytes/100 leukoc ytesOrdered By: Kerwin Kumar on 06-12-2023 Lymphocytes/100 WBC (Bld) 5.0 % 19-41 [facility] Blood monocytes/100 leukocyt esOrdered By: Kerwin Kumar on 06-12-2023 Monocytes/100 WBC (Bld) 7.8 % 0-10 [facility] Blood platelet mean volumeOr dered By: Kerwin Kumar on 06-12-2023 Platelet mean volume (Bld) [Entitic vol] 10.7 fL 6.2-12.0 [facility] Determination of erythrocyte mean corpuscular volume (MCV)Ordered By: Kerwin Kumar on 06-12-2023 MCV (RBC) [Entitic vol] 90.3 fL 81-99 [facility] Hematocrit Auto (Bld) [Volum e fraction]Ordered By: Kerwin Kumar on 06-12-2023 Hematocrit (Bld) [Volume fraction] 41.0 % 37-47 [facility] Ketones Test strip Ql (U)Ord ered By: Kerwin Kumar on 06-12-2023 Ketones Ql (U) 50 mg/dl Negative [facility] - Chemistry and C hemistry - challengeOrdered By: Kerwin Kumar on 06-12-2023 CO2 [Moles/Vol] 25.0 mmol/L 21.0-32.0 [facility] Urea nitrogen/Creatinine [Mass ratio] 17.5 mg/mg 10-20 [facility] - Hematology and Cell countsOrdered By: Kerwin Kumar on 06-12-2023 Erythrocyte distribution width (RBC) [Entitic vol] 48.2 fL 35.1-43.9 [facility] Erythrocyte distribution width (RBC) [Ratio] 14.6 % 11.6-14.6 [facility] Immature granulocytes/100 WBC (Bld) 0.600 % 0.0-0.9 [facility] Comment on above: IG% - Immature Granu locytes (promyelocytes, myelocytes and metamyelocytes) > 1% indicates that a LEFT SHIFT is Present. MCH (RBC) [Entitic mass] 28.2 pg 27.0-32.0 [facility] Nucleated RBC/100 WBC (Bld) [Ratio] 0 % 0-5 [facility] MCHC Auto (RBC) [Mass/Vol]Or dered By: Kerwin Kumar on 06-12-2023 MCHC (RBC) [Mass/Vol] 31.2 g/dL 32-36 [facility] Mucus LM Ql (Urine sed)Order ed By: Kerwin Kumar on 06-12-2023 Mucus Ql (Urine sed) 0 SEEN /hpf [facility] Nitrite Test strip Ql (U)Ord ered By: Kerwin Kumar on 06-12-2023 Nitrite Ql (U) Positive Negative [facility] No Panel InformationOrdered By: Kerwin Kumar on 06-12-2023 Estimated Creatinine Clearance Calc 65.91 ml/min [facility] Estimated GFR (MDRD) Amer 88 mL/min >60 [facility] Comment on above: GFR Calc Estimated GFR (MDRD) Non-Af Amer 73 mL/min >60 [facility] Comment on above: Non- GFR Calc Platelets bldOrdered By: Ami Kumar on 06-12-2023 Platelets (Bld) [#/Vol] 309 10*3/uL 150-450 [facility] Protein Test strip Ql (U)Ord ered By: Kerwin Kumar on 06-12-2023 Protein Ql (U) 30 mg/dl Negative [facility] Serum or plasma calcium jessi urement (mass/volume)Ordered By: Kerwin Kumar on 06-12-2023 Calcium [Mass/Vol] 9.1 mg/dL 8.5-10.1 [facility] Serum or plasma creatinine m easurement (mass/volume)Ordered By: Kerwin Kumar on 06-12-2023 Creatinine [Mass/Vol] 0.80 mg/dL 0.55-1.02 [facility] Comment on above: The validity of the calculated GFR & GFRAA in patients over 70 years has not been determined. Clinical correlation is essential. Serum or plasma urea nitroge n measurement (mass/volume)Ordered By: Kerwin Kumar on 06-12-2023 Urea nitrogen [Mass/Vol] 14 mg/dL 7-18 [facility] Squamous epithelial cells de tection in urine sediment by light microscopyOrdered By: Kerwin Kumar on 06-12-2023 Epithelial cells.squamous LM Ql (Urine sed) 0-5 SEEN /hpf 5-10 [facility] Thin prep Papanicolaou smear with manual screeningOrdered By: Kerwin Kumar on 06-12-2023 Thin prep Papanicolaou smear with manual screening 8 5-15 [facility] Urine blood detectionOrdered By: Kerwin Kumar on 06-12-2023 RBC Ql (U) 150 /ul Negative [facility] RBC Ql (U) 0-5 SEEN /hpf 0-5 [facility] Urine clarityOrdered By: Ami Kumar on 06-12-2023 Clarity (U) Clear Clear [facility] Urine color determinationOrd ered By: Kerwin Kumar on 06-12-2023 Color (U) Yellow Yellow [facility] Urine glucose detectionOrder ed By: Kerwin Kumar on 06-12-2023 Glucose Ql (U) 50 mg/dl Normal [facility] Urine leukocyte esterase det ection by dipstickOrdered By: Kerwin Kumar on 06-12-2023 Leukocyte esterase Test strip Ql (U) 100 /ul Negative [facility] Urine pHOrdered By: Kerwin espinoza on 06-12-2023 pH (U) 6.0 [pH] 5.0 - 8.0 [facility] Urine sediment bacteria coun t by microscopy (number/high power field)Ordered By: Kerwin Kumar on 06-12-2023 Bacteria LM.HPF (Urine sed) [#/Area] 2 /[HPF] None Seen [facility] Urine specific gravity measu rementOrdered By: Kerwin Kumar on 06-12-2023 Specific gravity (U) [Rel density] 1.015 1.002-1.030 [facility] Urobilinogen Auto test strip Ql (U)Ordered By: Kerwin Kumar on 06-12-2023 Urobilinogen Ql (U) Normal mg/dl Normal [facility] NM CARDIAC PERF STRESS/PHARM on 01-28-2023 [facility] HEMOGLOBIN A1C (POC)on 12-30 HbA1c (Bld) [Mass fraction] 7.0 % Abnormal 4.2 - 5.6 % [facility] XR ABDOMEN 1V SUPINEon 09-23 [facility] ECG COMPLETEon 08-18-2022 Atrial Rate 96 BPM [facility] Calculated P [place] 28 degrees [facility] Calculated R [place] -16 degrees [facility] Calculated T [place] 5 degrees [facility] P-R Interval 180 ms [facility] QRS Duration 78 ms [facility] QT Interval 354 ms [facility] QTC Calculation (Bazett) 447 ms [facility] Ventricular Rate 96 BPM [facility] UA DIP, URINE (POC)on 2022 BILIRUBIN UA (POCT) Negative Negative [facility] CLARITY UA (POCT) Slightly Cloudy Cl [facility] COLOR UA (POCT) Dark yellow [facility] GLUCOSE UA (POCT) Negative Negative mg/dL [facility] HEMOGLOBIN/BLOOD UA (POCT) Large Abnormal Negative [facility] KETONE UA (POCT) Negative Negative mg/dL [facility] LEUKOCYTES UA (POCT) Trace Abnormal Negative [facility] NITRITE UA (POCT) Negative Negative [facility] PH UA (POCT) 5.5 4.5 - 8.0 [facility] Protein Ql (U) 100 mg/dL Abnormal Negative mg/dL [facility] SPECIFIC GRAVITY UA (POCT) >=1.030 1.005 - 1.030 [facility] UROBILINOGEN UA (POCT) 0.2 E.U./dL Kasia l E.U./dL [facility] XR DIGIT GENERAL 3V FRONTAL/ LAT/OBL RIGHTon 05-06-2022 [facility] XR Finger - right AP and Lat eral and obliqueon 05-06-2022 IMPRESSION: Acute, comminuted fracture of the third distal phalanx subungual tuft. Skein Yard Drier: PSCB Transcribe Date/Time: May 06 2022 4:13P Dictated by : ORIN BEAL MD This examination was interpreted and the report reviewed and electronically signed by: ORIN BEAL MD on May 06 2022 4:15PM [facility] DIVISION OF RADIOLOGY * * *Final Report* [...] swelling. DIVISION OF RADIOLOGY Provider, Patsy Watson [facility] - 05/06/2022 * * *Final Report* * [...] of the third distal phalanx subungual tuft. Skein Yard Drier: PSCB Transcribe Date/Time: May 06 2022 4:13P Dictated by : ORIN BEAL MD This examination was interpreted and the report reviewed and electronically signed by: ORIN BEAL MD on May 06 2022 4:15PM EST [facility] Radiology Study observation (narrative) [facility] XR Finger - right AP and Lat eral and obliqueOrdered By: Ccf Provider on 05-06-2022 [facility] CBC panel Auto (Bld)on 04-27 Erythrocyte distribution width (RBC) [Ratio] 14.6 % 11.5 - 15.0 % [facility] Hematocrit (Bld) [Volume fraction] 40.6 % 36.0 - 46.0 % [facility] Hemoglobin (Bld) [Mass/Vol] 12.8 g/dL 11.5 - 15.5 g/dL [facility] MCH (RBC) [Entitic mass] 30.0 pg 26.0 - 34.0 pg [facility] MCHC (RBC) [Mass/Vol] 31.5 g/dL 30.5 - 36.0 g/dL [facility] MCV (RBC) [Entitic vol] 95.1 fL 80.0 - 100.0 fL [facility] Nucleated RBC (Bld) [#/Vol] <0.01 k/uL [facility] Platelet mean volume (Bld) [Entitic vol] 10.7 fL 9.0 - 12.7 fL [facility] Platelets (Bld) [#/Vol] 341 10*3/uL 150 - 400 k/uL [facility] RBC (Bld) [#/Vol] 4.27 10*6/uL 3.90 - 5.2 0 m/uL [facility] WBC (Bld) [#/Vol] 9.20 10*3/uL 3.70 - 11.00 k/uL [facility] XR Abdomen Supine and Uprigh ton 04-08-2022 IMPRESSION: 0.9 x 1.8 cm oblong calculus projects over the expected location of the left renal pelvis. Skein Yard Drier: KOLE Transcribe Date/Time: Apr 08 2022 4:40P Dictated by : ORIN BEAL MD This examination was interpreted and the report reviewed and electronically signed by: ORIN BEAL MD on Apr 08 2022 4:41PM [facility] DIVISION OF RADIOLOGY * * *Final Report* [...] the pubic symphysis. DIVISION OF RADIOLOGY [facility] * * *Final Report* [...] expected location of the left renal pelvis. Skein Yard Drier: PSCB Transcribe Date/Time: Apr 08 2022 4:40P Dictated by : ORIN BEAL MD This examination was interpreted and the report reviewed and electronically signed by: ORIN BEAL MD on Apr 08 2022 4:41PM EST [facility] Radiology Study observation (narrative) [facility] XR Abdomen Supine and Uprigh tOrdered By: Ccf Provider on 04-08-2022 [facility] Bacteria identified Cx Nom ( Wound)on 03-07-2022 Microscopic observation Smear Nom (Unsp spec) Negative Abnormal [facility] Microscopic observation Smear Nom (Unsp spec) Rare Polymorphonuclear leukocytes Abnormal [facility] WOUND CULTURE AND GRAM STAIN on 03-07-2022 Bacteria identified Cx Nom (Wound) Moderate Klebsiella pneumoniae Abnormal [facility] Bacteria identified Cx Nom (Wound) Few Normal urogenital kj Abnormal [facility] EXTRA SWAB CONTAINER PERFORM ABLEon 03-04-2022 [facility] WOUND CULTURE AND GRAM STAIN on 03-04-2022 Bacteria identified Cx Nom (Wound) Invalid Interpretation Code [facility] Absolute lymphocyte counton 02-28-2022 Lymphocytes Auto (Unsp spec) [#/Vol] 1.71 10*3/uL 0.83-4.51 [facility] Work Phone: Basophil percentageon 2021 Basophils/100 WBC (Bld) 0.6 % 0-1 [facility] Work Phone: Bilirubin [Mass/Vol] 0.40 mg/dL 0.20-1.[address] [facility] Work Phone: Comment on above: For patients on eltr ombopag therapy, use of Dimension [place] TBIL is not recommended. Chloride [Moles/Vol] 103 mmol/L 98-[address] [facility] Work Phone: Eosinophils/100 WBC (Bld) 0.9 % 0-5 [facility] Work Phone: Glucose [Mass/Vol] 151 mg/dL 74-106 [facility] Work Phone: Comment on above: Fasting Glucose resu lt greater than or equal to 126 mg/dL suggests DIABETES MELLITUS per A.D.A. criteria. Neutrophils (Bld) [#/Vol] 9.1 10*3/uL 2.0-7.7 [facility] Work Phone: Neutrophils/100 WBC (Bld) 74.8 % 47-70 [facility] Work Phone: Potassium [Moles/Vol] 3.9 mmol/L 3.5-5.1 [facility] Work Phone: Protein [Mass/Vol] 7.7 g/dL 6.4-8.2 [facility] Work Phone: Sodium [Moles/Vol] 139 mmol/L 136-145 [facility] Work Phone: WBC (Bld) [#/Vol] 12.2 10*3/uL 4.4-11.0 [facility] Work Phone: Blood erythrocytes count (nu mber/volume)on 02-28-2022 RBC (Bld) [#/Vol] 4.82 10*6/uL 4.2-5.4 [facility] Work Phone: Blood hemoglobin measurement (mass/volume)on 02-28-2022 Hemoglobin (Bld) [Mass/Vol] 14.7 g/dL 12.0-15.0 [facility] Work Phone: Blood lymphocytes/100 leukoc yteson 02-28-2022 Lymphocytes/100 WBC (Bld) 14.1 % 19-41 [facility] Work Phone: Blood monocytes/100 leukocyt eson 02-28-2022 Monocytes/100 WBC (Bld) 9.1 % 0-10 [facility] Work Phone: [phone] Blood platelet mean volumeon 02-28-2022 Platelet mean volume (Bld) [Entitic vol] 11.0 fL 6.2-12.0 [facility] Work Phone: [phone] Determination of erythrocyte mean corpuscular volume (MCV)on 02-28-2022 MCV (RBC) [Entitic vol] 95.6 fL 81-99 [facility] Work Phone: [phone] Direct bilirubinon Bilirubin.direct [Mass/Vol] 0.09 mg/dL 0.00-0.30 [facility] Work Phone: [phone] Glucose Glucometer (BldC) [M ass/Vol]on 02-28-2022 Glucose [Mass/Vol] 146 mg/dL 74-106 [facility] Work Phone: [phone] Comment on above: MANAGEMENT OF PATIEN T CARE PER NURSING PROTOCOL Hematocrit Auto (Bld) [Volum e fraction]on 02-28-2022 Hematocrit (Bld) [Volume fraction] 46.1 % 37-47 [facility] Work Phone: [phone] Laboratory - Chemistry and C hemistry - challengeon 02-28-2022 ALP [Catalytic activity/Vol] 115 U/L 45-117 [facility] Work Phone: [phone] ALT [Catalytic activity/Vol] 15 U/L 13-56 [facility] Work Phone: [phone] CO2 [Moles/Vol] 29.0 mmol/L 21.0-32.0 [facility] Work Phone: [phone] Globulin (S) [Mass/Vol] 4.8 g/dL 2.2-4.2 [facility] Work Phone: [phone] Lipase [Catalytic activity/Vol] 74 U/L 73-393 [facility] Work Phone: [phone] Urea nitrogen/Creatinine [Mass ratio] 21.1 mg/mg 10-20 [facility] Work Phone: [phone] Laboratory - Hematology and Cell countson 02-28-2022 Erythrocyte distribution width (RBC) [Entitic vol] 49.0 fL 35.1-43.9 [facility] Work Phone: [phone] Erythrocyte distribution width (RBC) [Ratio] 13.9 % 11.6-14.6 [facility] Work Phone: [phone] Immature granulocytes/100 WBC (Bld) 0.500 % 0.0-0.9 [facility] Work Phone: [phone] Comment on above: IG% - Immature Granu locytes (promyelocytes, myelocytes and metamyelocytes) > 1% indicates that a LEFT SHIFT is Present. MCH (RBC) [Entitic mass] 30.5 pg 27.0-32.0 [facility] Work Phone: [phone] Nucleated RBC/100 WBC (Bld) [Ratio] 0 % 0-5 [facility] Work Phone: [phone] MCHC Auto (RBC) [Mass/Vol]on 02-28-2022 MCHC (RBC) [Mass/Vol] 31.9 g/dL 32-36 [facility] Work Phone: [phone] Panel Informationon 02-28 Estimated Creatinine Clearance Calc 42.00 ml/min [facility] Work Phone: [phone] Estimated GFR (MDRD) Amer 94 mL/min >60 [facility] Work Phone: [phone] Comment on above: GFR Calc Estimated GFR (MDRD) Non-Af Amer 78 mL/min >60 [facility] Work Phone: [phone] Comment on above: Non- GFR Calc Platelets bldon 02-28-2022 Platelets (Bld) [#/Vol] 311 10*3/uL 150-450 [facility] Work Phone: [phone] Serum or plasma albumin jessi urement (mass/volume)on 02-28-2022 Albumin [Mass/Vol] 2.9 g/dL 3.2-5.0 [facility] Work Phone: Serum or plasma calcium jessi urement (mass/volume)on 02-28-2022 Calcium [Mass/Vol] 9.2 mg/dL 8.5-10.1 [facility] Work Phone: Serum or plasma creatinine m easurement (mass/volume)on 02-28-2022 Creatinine [Mass/Vol] 0.76 mg/dL 0.55-1.02 [facility] Work Phone: [phone] Comment on above: The validity of the calculated GFR & GFRAA in patients over 70 years has not been determined. Clinical correlation is essential. Serum or plasma urea nitroge n measurement (mass/volume)on 02-28-2022 Urea nitrogen [Mass/Vol] 16 mg/dL 7-18 [facility] Work Phone: Thin prep Papanicolaou smear with manual screeningon 02-28-2022 Thin prep Papanicolaou smear with manual screening 9 U/L 15-37 [facility] Work Phone: [phone] Thin prep Papanicolaou smear with manual screening 7 5-15 [facility] Work Phone: Absolute lymphocyte counton 02-16-2022 Lymphocytes Auto (Unsp spec) [#/Vol] 1.81 10*3/uL 0.83-4.51 [facility] Work Phone: Basophil percentageon 2021 Basophils/100 WBC (Bld) 0.7 % 0-1 [facility] Work Phone: Chloride [Moles/Vol] 109 mmol/L 98-[address] [facility] Work Phone: Eosinophils/100 WBC (Bld) 1.4 % 0-5 [facility] Work Phone: Glucose [Mass/Vol] 85 mg/dL 74-106 [facility] Work Phone: Neutrophils (Bld) [#/Vol] 6.2 10*3/uL 2.0-7.7 [facility] Work Phone: Neutrophils/100 WBC (Bld) 68.0 % 47-70 [facility] Work Phone: Potassium [Moles/Vol] 4.0 mmol/L 3.5-5.1 [facility] Work Phone: Sodium [Moles/Vol] 141 mmol/L 136-145 [facility] Work Phone: [phone] WBC (Bld) [#/Vol] 9.1 10*3/uL 4.4-11.0 [facility] Work Phone: Blood erythrocytes count (nu mber/volume)on 02-16-2022 RBC (Bld) [#/Vol] 4.18 10*6/uL 4.2-5.4 [facility] Work Phone: Blood hemoglobin measurement (mass/volume)on 02-16-2022 Hemoglobin (Bld) [Mass/Vol] 12.3 g/dL 12.0-15.0 [facility] Work Phone: Blood lymphocytes/100 leukoc yteson 02-16-2022 Lymphocytes/100 WBC (Bld) 19.8 % 19-41 [facility] Work Phone: Blood monocytes/100 leukocyt eson 02-16-2022 Monocytes/100 WBC (Bld) 9.4 % 0-10 [facility] Work Phone: Blood platelet mean volumeon 02-16-2022 Platelet mean volume (Bld) [Entitic vol] 11.0 fL 6.2-12.0 [facility] Work Phone: Determination of erythrocyte mean corpuscular volume (MCV)on 02-16-2022 MCV (RBC) [Entitic vol] 94.5 fL 81-99 [facility] Work Phone: Glucose Glucometer (BldC) [M ass/Vol]on 02-16-2022 Glucose [Mass/Vol] 64 mg/dL 74-106 [facility] Work Phone: Comment on above: MANAGEMENT OF PATIEN T CARE PER NURSING PROTOCOL Hematocrit Auto (Bld) [Volum e fraction]on 02-16-2022 Hematocrit (Bld) [Volume fraction] 39.5 % 37-47 [facility] Work Phone: [phone] Laboratory - Chemistry and C hemistry - challengeon 02-16-2022 CO2 [Moles/Vol] 26.0 mmol/L 21.0-32.0 [facility] Work Phone: [phone] Urea nitrogen/Creatinine [Mass ratio] 21.1 mg/mg 10-20 [facility] Work Phone: [phone] Laboratory - Hematology and Cell countson 02-16-2022 Erythrocyte distribution width (RBC) [Entitic vol] 48.5 fL 35.1-43.9 [facility] Work Phone: [phone] Erythrocyte distribution width (RBC) [Ratio] 14.0 % 11.6-14.6 [facility] Work Phone: [phone] Immature granulocytes/100 WBC (Bld) 0.700 % 0.0-0.9 [facility] Work Phone: [phone] Comment on above: IG% - Immature Granu locytes (promyelocytes, myelocytes and metamyelocytes) > 1% indicates that a LEFT SHIFT is Present. MCH (RBC) [Entitic mass] 29.4 pg 27.0-32.0 [facility] Work Phone: [phone] Nucleated RBC/100 WBC (Bld) [Ratio] 0 % 0-5 [facility] Work Phone: [phone] MCHC Auto (RBC) [Mass/Vol]on 02-16-2022 MCHC (RBC) [Mass/Vol] 31.1 g/dL 32-36 [facility] Work Phone: No Panel Informationon 02-16 Estimated Creatinine Clearance Calc 42.00 ml/min [facility] Work Phone: [phone] Estimated GFR (MDRD) Amer 110 mL/min >60 [facility] Work Phone: [phone] Comment on above: GFR Calc Estimated GFR (MDRD) Non-Af Amer 91 mL/min >60 [facility] Work Phone: [phone] Comment on above: Non- GFR Calc Troponin I High Sensitivity 8 pg/mL 3.0-54.0 [facility] Work Phone: Comment on above: Please Note: [place] t Units and Gender Specific Reference Ranges. For more information see Policy Stat Procedure [place] High Sensitivity Troponin (TNIH) and attachments. Platelets bldon 02-16-2022 Platelets (Bld) [#/Vol] 317 10*3/uL 150-450 [facility] Work Phone: [phone] Serum or plasma calcium jessi urement (mass/volume)on 02-16-2022 Calcium [Mass/Vol] 8.9 mg/dL 8.5-10.1 [facility] Work Phone: Serum or plasma creatinine m easurement (mass/volume)on 02-16-2022 Creatinine [Mass/Vol] 0.66 mg/dL 0.55-1.02 [facility] Work Phone: Comment on above: The validity of the calculated GFR & GFRAA in patients over 70 years has not been determined. Clinical correlation is essential. Serum or plasma urea nitroge n measurement (mass/volume)on 02-16-2022 Urea nitrogen [Mass/Vol] 14 mg/dL 7-18 [facility] Work Phone: Thin prep Papanicolaou smear with manual screeningon 02-16-2022 Thin prep Papanicolaou smear with manual screening 6 5-15 [facility] Work Phone: GLUCOSE, BLOOD (POC)on 12-17 Glucose [Mass/Vol] 248 mg/dL Abnormal 74 - 99 mg/dL [facility] UA DIP, URINE (POC)on 2021 BILIRUBIN UA (POCT) Negative Negative [facility] CLARITY UA (POCT) Cloudy [facility] COLOR UA (POCT) Dark yellow [facility] GLUCOSE UA (POCT) >=1000 Abnormal Negative mg/dL [facility] HEMOGLOBIN/BLOOD UA (POCT) Large Abnormal Negative [facility] KETONE UA (POCT) Trace Negative mg/[facility] LEUKOCYTES UA (POCT) Small Abnormal Negative [facility] NITRITE UA (POCT) Positive Abnormal Negative [facility] PH UA (POCT) 5.0 4.5 - 8.0 [facility] Protein Ql (U) 100 mg/dL Abnormal Negative mg/dL [facility] SPECIFIC GRAVITY UA (POCT) 1.025 1.005 - 1.030 [facility] UROBILINOGEN UA (POCT) 0.2 E.U./dL Kasia l E.U./dL [facility] TSH BLDon 10-04-2021 TSH Qn 1.840 m[IU]/L 0.270 - 4.200 mIU/L [facility] XR Chest PA and Lateralon IMPRESSION: No acute radiographic abnormality. Skein Yard Drier: PSCB Transcribe Date/Time: Oct 04 2021 7:28A [...] thoracic spine. [id number] _DIVISION OF RADIOLOGY Provider, [facility] - 10/04/2021 * * *Final Report* [...] spine. IMPRESSION IMPRESSION: No acute radiographic abnormality. Skein Yard Drier: PSCB Transcribe Date/Time: Oct 04 2021 7:28A Dictated by : MALIKA JACOBSON MD This examination was interpreted and the report reviewed and electronically signed by: MALIKA JACOBSON MD on Oct 04 2021 7:28AM EST [facility] XR Chest PA and LateralOrder ed By: Ccf Provider on 10-04-2021 [facility] CBC W Auto Differential pane l (Bld)on 10-03-2021 Abs Immature Gran 0.05 k/uL <0.10 k/uL [facility] Basophils (Bld) [#/Vol] 0.07 10*3/uL <0.11 k/uL [facility] Basophils/100 WBC (Bld) 0.7 % [facility] Differential cell count method Nom (Bld) Auto [facility] Eosinophils (Bld) [#/Vol] 0.12 10*3/uL <0.46 k/uL [facility] Eosinophils/100 WBC (Bld) 1.2 % [facility] Erythrocyte distribution width (RBC) [Ratio] 14.2 % 11.5 - 15.0 % [facility] Hematocrit (Bld) [Volume fraction] 43.9 % 36.0 - 46.0 % [facility] Hemoglobin (Bld) [Mass/Vol] 14.2 g/dL 11.5 - 15.5 g/dL [facility] Immature Gran % 0.5 % [facility] Lymphocytes (Bld) [#/Vol] 2.06 10*3/uL 1.00 - 4.00 k/uL [facility] Lymphocytes/100 WBC (Bld) 20.9 % [facility] MCH (RBC) [Entitic mass] 30.5 pg 26.0 - 34.0 pg [facility] MCHC (RBC) [Mass/Vol] 32.3 g/dL 30.5 - 36.0 g/dL [facility] MCV (RBC) [Entitic vol] 94.2 fL 80.0 - 100.0 fL [facility] Monocytes (Bld) [#/Vol] 0.81 10*3/uL <0.87 k/uL [facility] Monocytes/100 WBC (Bld) 8.2 % [facility] Neutrophils (Bld) [#/Vol] 6.76 10*3/uL 1.45 - 7.50 k/uL [facility] Neutrophils/100 WBC (Bld) 68.5 % [facility] Nucleated RBC (Bld) [#/Vol] 10*3/uL <0.01 k/uL [facility] Nucleated RBC/100 WBC (Bld) [Ratio] 0.0 /100 WBC [facility] Platelet mean volume (Bld) [Entitic vol] 11.1 fL 9.0 - 12.7 fL [facility] Platelets (Bld) [#/Vol] 293 10*3/uL 150 - 400 k/uL [facility] RBC (Bld) [#/Vol] 4.66 10*6/uL 3.90 - 5.2 0 m/uL [facility] WBC (Bld) [#/Vol] 9.87 10*3/uL 3.70 - 11.00 k/uL [facility] Comprehensive metabolic 2000 panelon 10-03-2021 Albumin [Mass/Vol] 3.9 g/dL 3.9 - 4.9 g/dL [facility] ALP [Catalytic activity/Vol] 100 U/L 34 - 123 U/L [facility] ALT [Catalytic activity/Vol] 9 U/L 7 - 38 U/L [facility] Anion gap [Moles/Vol] 10 mmol/L 9 - 18 mmol/L [facility] AST [Catalytic activity/Vol] 14 U/L 13 - 35 U/L [facility] Bilirubin [Mass/Vol] 0.2 mg/dL 0.2 - 1 .3 mg/dL [facility] Calcium [Mass/Vol] 9.1 mg/dL 8.5 - 10. 2 mg/dL [facility] Chloride [Moles/Vol] 104 mmol/L 97 - 10 5 mmol/L [facility] CO2 [Moles/Vol] 23 mmol/L 22 - 30 mmol/L [facility] Creatinine [Mass/Vol] 0.70 mg/dL 0.58 - 0.96 mg/dL [facility] Estimated Glomerular Filtration Rate 88 mL/min/1.73m >=60 mL/min/1.73 m [facility] Glucose [Mass/Vol] 128 mg/dL High 74 - 99 mg/dL [facility] Potassium [Moles/Vol] 4.3 mmol/L 3.7 - 5.1 mmol/L [facility] Protein [Mass/Vol] 7.2 g/dL 6.3 - 8.0 g/dL [facility] Sodium [Moles/Vol] 137 mmol/L 136 - 144 mmol/L [facility] Urea nitrogen [Mass/Vol] 21 mg/dL 7 - 21 mg/dL [facility] XR CHEST 2V FRONTAL/LATon [facility] XR Chest PA and Lateralon Radiology Study observation (narrative) Daniela oliver [facility] ANES [place] 06-12-2019 ANES POST HNO ID: [id number] Author: Mayra Moore Service: Anesthesiology Author Type: [...] 12, 2019 TIME: 8:36 AM PAGER/CONTACT #: [facility] ANENaveed PREOPon 06-12-2019 ANES PREOP HNO ID: [id number] Author: Mayra Moore Service: Anesthesiology Author Type: 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 1997 - MORBID OBESITY 08/18/2007 - Obstructive sleep apnea Sleep study 2002 - Occlusion and stenosis of carotid artery without mention of cerebral infarction 03/09/06 mild stenosis shown on u/s at [facility] u/s repeated 02/02/07 with no change - Pure hypercholesterolemia - Type II or unspecified type diabetes mellitus with renal manifestations, uncontrolled(250.42) - Unspecified glaucoma(365.9) - Unspecified pruritic disorder PAST SURGICAL HISTORY Procedure Laterality Date - EGD W/O [facility] SPECIMEN W/BX 05-14-15 - GASTRIC BYPASS 09/14/2007 [...] 12, 2019 TIME: 7:07 AM PAGER/CONTACT #: [facility] NURSING PROGon 06-12-2019 NURSING PROG HNO ID: [id number] Author: Natalya (Rn) ISMAEL Cox Service: Nursing Author Type: Registered Nurse Type: Nursing Progress Note Filed: 06/13/2019 2:57 PM Note Text: Nursing Progress Note Topic of Note: Post op phone call Miriam Davenport [phone] Pt has concern about stitches poking her and location of the areas where biopsies were taken. Encouraged pt to reach out to Dr. Prado for clarification. Phone number provided. This note was completed by: Natalya Cox RN [facility] SURGICAL PATHOLOGYon 020 SURGICAL PATHOLOGY ADDENDUM PRESENT Specimen originated from [facility] Specimen #: [id number] Submitting Physician: ESTHER PRADO FINAL DIAGNOSIS 1. [...] and Gram stains were performed at the [facility] and compared to appropriate controls. The [...] in one cassette. Gross examination performed at [facility], [address] [place] [address] 06/12/2019 9:33:07 PM Date of Report: 06/13/2019 Date of Procedure: 06/12/2019 Date of Receipt: 06/12/2019 Submitted by: ESTHER PRADO Additional Physician(s): GUILLAUME DOMINGUEZ Location: [facility] Diagnostic interpretation performed at [facility], [address] [place] [address]. CLIA Number: [id number] [facility] NURSING PROGon 06-01-2019 NURSING PROG HNO ID: [id number] Author: Karin (Rn) Gopal RN Service: General Surgery Author Type: Registered Nurse Type: Nursing Progress Note Filed: 06/01/2019 8:16 PM Note Text: PACC Nurse Progress Note History AND Physical: PACC Visit Date: 05-19-19 Original HANDP Date: N/A ED visit Date: N/A Outside HANDP Scanned Date: N/A Labs Within Last 6 Months: CBC: Date 03-31-19 BMP/CMP: Date 03-31-19 Results scanned in [facility] 05-01-19 Imaging Within Last 12 Months: N/A Cardiac Testing: EKG in last 12 Months: Yes: Date: 03-17-19, Comment: Confirmed in [facility] Last Menstrual Period: LMP Date: Not recorded [...] lumbar region Assessment: following pain management at [facility], receiving facet injections ? 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 Cartagena-Bariatric/[facility] 2) Dr. Luong - Hauling Contractor (non [facility]) 3) Dr. Reina - Collections Associate (non [facility]) 4) Dr Prado - Gynecology/[facility] Comfort Patterson, GM.SURFACE BOSS 06/06/2019 8:07 AM Signed Can you clarify why she is seeing bath mixer and rn nicu - diagnoses for referrals? Lola Wong LPN 06/06/2019 8:[address] Dominguez, did patient indicate to you why she is seeing these specialists? Guillaume Dominguez MD 06/07/2019 7:26 PM Signed Filed order Do not use Non[facility] consult orders (there is a place with consult orders to check if they are a [facility] provider/have Epic privileges. Progress Notes ([employer] SUPERVISOR MAIN): Ning Trung VILLASENOR 06/05/2019 3:51 PM [...] patient have an advanced directive: No Does [facility] have a copy of the patient's [...] prescribed by anesthesia, internal medicine, surgeon, or CATTLE SORTER Stop NSAIDs, Aspirin (ASA), vitamins, herbal supplements, [...] jewelry, body piercing, makeup, contacts, lotions, nail palestinian on fingers, or anything in hair on [...] if after hours patient instructed to call envelope sealer operator and ask for hardwood floor installation helper pmo manager onc resident. CROONA program offered to patient: No, Additional teaching as indicated by patient/family learning needs. PATIENT LEARNING EVALUATION AND FOLLOW UP PLAN: Patient and/or family express understanding of upcoming surgery, pre-operative preparation, the operative process, and post-operative instructions. Follow up plan: Complete - No need for follow-up Patient has a post-op appointment scheduled: Yes Referral (recommentation): None Educator: Ning Nino PARKING METER MECHANIC [facility] MRI LUMBAR SPINE WO IVCONon 10-03-2018 MRI LUMBAR SPINE WO IVCON * * *Final Report* * * DATE OF EXAM: Oct 03 2018 9:18AM [facility] 0303 - MRI LUMBAR SPINE WO [...] on Oct 03 2018 10:38AM EST [id number] [facility] Vital Signs Date Time Vital Sign Value Performing Clinician Facility 08-03-2024 13:35-0500 Body height 165.1 cm Tika Jones MD Work Phone: [facility] 08-03-2024 13:35-0500 Diastolic blood pressure 56 mm[Hg] Tika tamayo MD Work Phone: [facility] 08-03-2024 13:35-0500 Heart rate 71 /min Tika Jones MD Work Phone: [facility] 08-03-2024 13:35-0500 Respiratory rate 18 /min Tika Jones MD Work Phone: [facility] 08-03-2024 13:35-0500 SaO2% (BldA) [Mass fraction] 97 % Tika Jones MD Work Phone: [facility] 08-03-2024 13:35-0500 Systolic blood pressure 103 mm[Hg] Tika Jones MD Work Phone: [facility] 05-11-2024 16:43-0500 SaO2% (BldA) [Mass fraction] 97 % GUILLAUME DOMINGUEZ [facility] Comment on above: Order Comment: Specimen Type: ARTERIAL B LOOD SPECIMENOrdering Facility: [facility] Address: [address] [place] [address] Performed By: #### A LLBG ####[facility] LABORATORYCLIA [id number] [place] [address] [place] 05-06-2024 01:12-0500 Body temperature 98.2 [degF] Dr. Guillaume Dominguez MD Work Phone: [facility] 05-06-2024 01:12-0500 Diastolic blood pressure 57 mm[Hg] Dr. Guillaume hinds MD Work Phone: 2(317)085-098659 [place] [address] 05-06-2024 01:12-0500 Heart rate 76 /min Dr. Guillaume Dominguez MD Work Phone: 7(429)080-486158 [place] [address] 05-06-2024 01:12-0500 Respiratory rate 17 /min Dr. Guillaume Dominguez MD Work Phone: 5(982)739-297058 [place] [address] 05-06-2024 01:12-0500 SaO2% (BldA) [Mass fraction] 95 % Dr. Guillaume Dominguez MD Work Phone: 9(664)905-937958 [place] [address] 05-06-2024 01:12-0500 Systolic blood pressure 102 mm[Hg] Dr. Guillaume abarca MD Work Phone: 5(085)678-475658 [place] [address] 05-06-2024 00:24-0500 Inhaled oxygen flow rate 2 L/min Dr. Guillaume hinds MD Work Phone: 4(827)[phone] [place] [address] 05-05-2024 22:59-0500 Body height 167.[address] Guillaume Dominguez MD Work Phone: 3(451)154-705758 [place] [address] 05-05-2024 22:59-0500 Body mass index (BMI) [Ratio] 30.7 kg/m2 Dr. Guillaume Dominguez MD Work Phone: 0(431)376-821758 [place] [address] 05-05-2024 22:59-0500 Body weight 86.[address] Guillaume Dominguez MD Work Phone: 3(745)[phone] [place] [address] 04-28-2024 16:40-0500 Body mass index (BMI) [Ratio] 30.67 kg/m2 Guillaume Dominguez MD Work Phone: [facility] 04-28-2024 16:40-0500 Body temperature 98.01 [degF] Guillaume Dominguez MD Work Phone: [facility] 04-28-2024 16:40-0500 Body weight 83.6 kg Guillaume Dominguez MD Work Phone: [facility] 04-28-2024 16:40-0500 Diastolic blood pressure 68 mm[Hg] Guillaume Oliver Work Phone: [facility] 04-28-2024 16:40-0500 Heart rate 93 /min Guillaume Dominguez MD Work Phone: [facility] 04-28-2024 16:40-0500 Respiratory rate 16 /min Guillaume Dominguez MD Work Phone: [facility] 04-28-2024 16:40-0500 SaO2% (BldA) [Mass fraction] 98 % Guillaume Dominguez MD Work Phone: [facility] 04-28-2024 16:40-0500 Systolic blood pressure 117 mm[Hg] Guillaume Dominguez MD Work Phone: [facility] 01-10-2024 11:38-0400 Body mass index (BMI) [Ratio] 32.94 kg/m2 Comfort Patterson SWITCH OPERATORS SUPERVISOR.SURFACE BOSS Work Phone: [facility] 01-10-2024 11:38-0400 Body weight 89.8 kg Comfort Patterson SWITCH OPERATORS SUPERVISOR.SURFACE BOSS Work Phone: [facility] 01-10-2024 11:38-0400 Diastolic blood pressure 76 mm[Hg] Comfort Patterson SWITCH OPERATORS SUPERVISOR.SURFACE BOSS Work Phone: [facility] 01-10-2024 11:38-0400 Heart rate 90 /min Comfort Patterson SWITCH OPERATORS SUPERVISOR.SURFACE BOSS Work Phone: [facility] 01-10-2024 11:38-0400 Respiratory rate 16 /min Comfort Patterson SWITCH OPERATORS SUPERVISOR.SURFACE BOSS Work Phone: [facility] 01-10-2024 11:38-0400 Systolic blood pressure 113 mm[Hg] Comfort Patterson SWITCH OPERATORS SUPERVISOR.SURFACE BOSS Work Phone: [facility] 12-24-2023 11:24-0400 Body mass index (BMI) [Ratio] 33.28 kg/m2 Josefa Caputo SWITCH OPERATORS SUPERVISOR.TRAINING AND DEVELOPMENT REP Work Phone: [facility] 12-24-2023 11:24-0400 Body weight 90.72 kg Josefa Flynn SWITCH OPERATORS SUPERVISOR.TRAINING AND DEVELOPMENT REP Work Phone: [facility] 12-24-2023 11:24-0400 Diastolic blood pressure 70 mm[Hg] Josefa Flynn SWITCH OPERATORS SUPERVISOR.TRAINING AND DEVELOPMENT REP Work Phone: [facility] 12-24-2023 11:24-0400 Heart rate 80 /min Josefa Flynn SWITCH OPERATORS SUPERVISOR.TRAINING AND DEVELOPMENT REP Work Phone: [facility] 12-24-2023 11:24-0400 Respiratory rate 20 /min Josefa Flynn SWITCH OPERATORS SUPERVISOR.TRAINING AND DEVELOPMENT REP Work Phone: [facility] 12-24-2023 11:24-0400 Systolic blood pressure 124 mm[Hg] Josefa Flynn SWITCH OPERATORS SUPERVISOR.TRAINING AND DEVELOPMENT REP Work Phone: [facility] 12-10-2023 16:16-0400 Body mass index (BMI) [Ratio] 33.25 kg/m2 Guillaume Dominguez MD Work Phone: [facility] 12-10-2023 16:16-0400 Body temperature 98.1 [degF] Guillaume Dominguez MD Work Phone: [facility] 12-10-2023 16:16-0400 Body weight 90.63 kg Guillaume Dominguez MD Work Phone: [facility] 12-10-2023 16:16-0400 Diastolic blood pressure 68 mm[Hg] Guillaume Oliver Work Phone: [facility] 12-10-2023 16:16-0400 Heart rate 94 /min Guillaume Dominguez MD Work Phone: [facility] 12-10-2023 16:16-0400 Respiratory rate 18 /min Guillaume Dominguez MD Work Phone: [facility] 12-10-2023 16:16-0400 SaO2% (BldA) [Mass fraction] 97 % Guillaume Dominguez MD Work Phone: [facility] 12-10-2023 16:16-0400 Systolic blood pressure 118 mm[Hg] Guillaume Dominguez MD Work Phone: [facility] 10-29-2023 15:53-0400 Diastolic blood pressure 80 mm[Hg] Curtis Oliver Work Phone: [facility] 10-29-2023 15:53-0400 Heart rate 89 /min Curtis Nassar MD Work Phone: [facility] 10-29-2023 15:53-0400 Systolic blood pressure 142 mm[Hg] Curtis Nassar MD Work Phone: [facility] 10-11-2023 11:23-0400 Body height 165.1 cm Comfort Patterson SWITCH OPERATORS SUPERVISOR.SURFACE BOSS Work Phone: [facility] 10-11-2023 11:23-0400 Body mass index (BMI) [Ratio] 33.78 kg/m2 Comfort Patterson SWITCH OPERATORS SUPERVISOR.SURFACE BOSS Work Phone: [facility] 10-11-2023 11:23-0400 Body weight 92.08 kg Comfort Patterson SWITCH OPERATORS SUPERVISOR.SURFACE BOSS Work Phone: [facility] 10-11-2023 11:23-0400 Diastolic blood pressure 81 mm[Hg] Comfort Patterson SWITCH OPERATORS SUPERVISOR.SURFACE BOSS Work Phone: [facility] 10-11-2023 11:23-0400 Heart rate 88 /min Comfort Patterson SWITCH OPERATORS SUPERVISOR.SURFACE BOSS Work Phone: [facility] 10-11-2023 11:23-0400 Respiratory rate 16 /min Comfort Patterson SWITCH OPERATORS SUPERVISOR.SURFACE BOSS Work Phone: [facility] 10-11-2023 11:23-0400 Systolic blood pressure 119 mm[Hg] Comfort Patterson SWITCH OPERATORS SUPERVISOR.SURFACE BOSS Work Phone: [facility] 08-13-2023 11:10-0400 Body weight 94.35 kg Josefa Flynn SWITCH OPERATORS SUPERVISOR.TRAINING AND DEVELOPMENT REP Work Phone: [facility] 08-13-2023 11:10-0400 Diastolic blood pressure 70 mm[Hg] Josefa Flynn SWITCH OPERATORS SUPERVISOR.TRAINING AND DEVELOPMENT REP Work Phone: [facility] 08-13-2023 11:10-0400 Heart rate 98 /min Josefa Flynn SWITCH OPERATORS SUPERVISOR.TRAINING AND DEVELOPMENT REP Work Phone: [facility] 08-13-2023 11:10-0400 Respiratory rate 16 /min Josefa Flynn SWITCH OPERATORS SUPERVISOR.TRAINING AND DEVELOPMENT REP Work Phone: [facility] 08-13-2023 11:10-0400 SaO2% (BldA) [Mass fraction] 95 % Josefa Flynn SWITCH OPERATORS SUPERVISOR.TRAINING AND DEVELOPMENT REP Work Phone: [facility] 08-13-2023 11:10-0400 Systolic blood pressure 116 mm[Hg] Josefa Flynn SWITCH OPERATORS SUPERVISOR.TRAINING AND DEVELOPMENT REP Work Phone: [facility] 08-11-2023 08:59-0400 Body weight 94.26 kg Martha Zillah DO Work Phone: [facility] 08-11-2023 08:59-0400 Diastolic blood pressure 79 mm[Hg] Martha Zillah DO Work Phone: [facility] 08-11-2023 08:59-0400 Heart rate 89 /min Martha Zillah DO Work Phone: [facility] 08-11-2023 08:59-0400 Systolic blood pressure 127 mm[Hg] Martha Zillah D O Work Phone: [facility] 07-29-2023 09:57-0500 Body height 165.1 cm Radha Walters MD Work Phone: [facility] 07-29-2023 09:57-0500 Body weight 94.21 kg Radha Walters MD Work Phone: [facility] 07-08-2023 15:43-0500 Body weight 94.8 kg Rajiv Walker MD Work Phone: [facility] 07-08-2023 15:43-0500 Diastolic blood pressure 82 mm[Hg] Rajiv Walker MD Work Phone: [facility] 07-08-2023 15:43-0500 Heart rate 101 /min Rajiv Walker MD Work Phone: [facility] 07-08-2023 15:43-0500 Systolic blood pressure 145 mm[Hg] Rajiv Oliver Work Phone: [facility] 06-25-2023 14:32-0500 Body height 165.1 cm Nhi De La Torre SWITCH OPERATORS SUPERVISOR.TRAINING AND DEVELOPMENT REP Work Phone: [facility] 06-25-2023 14:32-0500 Body weight 95.5 kg Nhi De La Torre SWITCH OPERATORS SUPERVISOR.TRAINING AND DEVELOPMENT REP Work Phone: [facility] 06-25-2023 14:32-0500 Diastolic blood pressure 68 mm[Hg] Nhi De La Torre SWITCH OPERATORS SUPERVISOR.TRAINING AND DEVELOPMENT REP Work Phone: [facility] 06-25-2023 14:32-0500 Heart rate 72 /min Nhi De La Torre SWITCH OPERATORS SUPERVISOR.TRAINING AND DEVELOPMENT REP Work Phone: [facility] 06-25-2023 14:32-0500 SaO2% (BldA) [Mass fraction] 98 % Nhi De La Torre SWITCH OPERATORS SUPERVISOR.TRAINING AND DEVELOPMENT REP Work Phone: [facility] 06-25-2023 14:32-0500 Systolic blood pressure 118 mm[Hg] Nhi De La Torre SWITCH OPERATORS SUPERVISOR.TRAINING AND DEVELOPMENT REP Work Phone: [facility] 06-12-2023 23:05-0500 Diastolic blood pressure 74 mm[Hg] [facility] 06-12-2023 23:05-0500 Heart rate 78 /min [facility] 06-12-2023 23:05-0500 Respiratory rate 16 /min [facility] 06-12-2023 23:05-0500 SaO2% (BldA) [Mass fraction] 97 % [facility] 06-12-2023 23:05-0500 Systolic blood pressure 157 mm[Hg] [facility] 06-12-2023 19:17-0500 Body height 167.64 cm [facility] 06-12-2023 19:17-0500 Body mass index (BMI) [Ratio] 35.6 kg/m2 [facility] 06-12-2023 19:17-0500 Body temperature 97.1 [degF] [facility] 06-12-2023 19:17-0500 Body weight 100.3 kg [facility] 05-14-2023 10:54-0500 Body temperature 98.71 [degF] Guillaume Dominguez MD Work Phone: [facility] 05-14-2023 10:54-0500 Body weight 96.62 kg Guillaume Dominguez MD Work Phone: [facility] 05-14-2023 10:54-0500 Diastolic blood pressure 68 mm[Hg] Guillaume Oliver Work Phone: [facility] 05-14-2023 10:54-0500 Heart rate 74 /min uGillaume Dominguez MD Work Phone: [facility] 05-14-2023 10:54-0500 Respiratory rate 18 /min Guillaume Dominguez MD Work Phone: [facility] 05-14-2023 10:54-0500 SaO2% (BldA) [Mass fraction] 97 % Guillaume Dominguez MD Work Phone: [facility] 05-14-2023 10:54-0500 Systolic blood pressure 110 mm[Hg] Guillaume Domignuez MD Work Phone: [facility] 02-26-2023 19:30-0400 Diastolic blood pressure 98 mm[Hg] [facility] 02-26-2023 19:30-0400 Heart rate 71 /min [facility] 02-26-2023 19:30-0400 Respiratory rate 16 /min [facility] 02-26-2023 19:30-0400 SaO2% (BldA) [Mass fraction] 95 % [facility] 02-26-2023 19:30-0400 Systolic blood pressure 116 mm[Hg] [facility] 02-26-2023 17:33-0400 Body height 167.64 cm [facility] 02-26-2023 17:33-0400 Body mass index (BMI) [Ratio] 33 kg/m2 [facility] 02-26-2023 17:33-0400 Body temperature 96.9 [degF] [facility] 02-26-2023 17:33-0400 Body weight 93 kg [facility] 02-04-2023 13:43-0400 Diastolic blood pressure 80 mm[Hg] Mi Nurse Work Phone: [facility] 02-04-2023 13:43-0400 Heart rate 74 /min Mi Nurse Work Phone: [facility] 02-04-2023 13:43-0400 Systolic blood pressure 131 mm[Hg] Mi Nurse Work Phone: [facility] 02-02-2023 10:57-0400 Diastolic blood pressure 60 mm[Hg] Josefa Flynn SWITCH OPERATORS SUPERVISOR.TRAINING AND DEVELOPMENT REP Work Phone: [facility] 02-02-2023 10:57-0400 Heart rate 102 /min Josefa Flynn SWITCH OPERATORS SUPERVISOR.TRAINING AND DEVELOPMENT REP Work Phone: [facility] 02-02-2023 10:57-0400 SaO2% (BldA) [Mass fraction] 98 % Josefa Flynn SWITCH OPERATORS SUPERVISOR.TRAINING AND DEVELOPMENT REP Work Phone: [facility] 02-02-2023 10:57-0400 Systolic blood pressure 80 mm[Hg] Josefa Flynn SWITCH OPERATORS SUPERVISOR.TRAINING AND DEVELOPMENT REP Work Phone: [facility] 01-11-2023 08:43-0400 Body height 162.6 cm Maykel Whitifeld DO Work Phone: [facility] 01-11-2023 08:43-0400 Body weight 95.84 kg Maykel Whitfield DO Work Phone: [facility] 01-11-2023 08:43-0400 Diastolic blood pressure 58 mm[Hg] Maykel hunt DO Work Phone: [facility] 01-11-2023 08:43-0400 Heart rate 77 /min Maykel Whitfield DO Work Phone: [facility] 01-11-2023 08:43-0400 SaO2% (BldA) [Mass fraction] 98 % Maykel Whitfield DO Work Phone: [facility] 01-11-2023 08:43-0400 Systolic blood pressure 96 mm[Hg] Makyel martins DO Work Phone: [facility] 12-30-2022 09:45-0400 Body weight 97.61 kg Curtis Nassar MD Work Phone: [facility] 12-30-2022 09:45-0400 Diastolic blood pressure 85 mm[Hg] Curtis Oliver Work Phone: [facility] 12-30-2022 09:45-0400 Heart rate 80 /min Curtis Nassar MD Work Phone: [facility] 12-30-2022 09:45-0400 Systolic blood pressure 147 mm[Hg] Curtis Nassar MD Work Phone: [facility] 10-27-2022 13:34-0400 Diastolic blood pressure 78 mm[Hg] Josefa Flynn SWITCH OPERATORS SUPERVISOR.TRAINING AND DEVELOPMENT REP Work Phone: [facility] 10-27-2022 13:34-0400 Systolic blood pressure 116 mm[Hg] Josefa Flynn SWITCH OPERATORS SUPERVISOR.TRAINING AND DEVELOPMENT REP Work Phone: [facility] 10-27-2022 13:08-0400 Heart rate 86 /min Josefa Flynn SWITCH OPERATORS SUPERVISOR.TRAINING AND DEVELOPMENT REP Work Phone: [facility] 10-27-2022 13:08-0400 SaO2% (BldA) [Mass fraction] 96 % Josefa Flynn SWITCH OPERATORS SUPERVISOR.TRAINING AND DEVELOPMENT REP Work Phone: [facility] 09-14-2022 10:33-0400 Heart rate 77 /min Moraima Montelongo MD Work Phone: [facility] 09-14-2022 10:33-0400 SaO2% (BldA) [Mass fraction] 97 % Moraima Montelongo MD Work Phone: [facility] 08-15-2022 11:28-0400 Body weight 108.86 kg Guillaume Dominguez MD Work Phone: [facility] 08-15-2022 11:28-0400 Diastolic blood pressure 72 mm[Hg] Guillaume Oliver Work Phone: [facility] 08-15-2022 11:28-0400 Heart rate 101 /min Guillaume Dominguez MD Work Phone: [facility] 08-15-2022 11:28-0400 Respiratory rate 20 /min Guillaume Dominguez MD Work Phone: [facility] 08-15-2022 11:28-0400 SaO2% (BldA) [Mass fraction] 99 % Guillaume Dominguez MD Work Phone: [facility] 08-15-2022 11:28-0400 Systolic blood pressure 126 mm[Hg] Guillaume Dominguez MD Work Phone: [facility] 07-07-2022 10:52-0500 Body temperature 96.4 [degF] Guillaume Dominguez MD Work Phone: [facility] 07-07-2022 10:52-0500 Body weight 106.59 kg Guillaume Dominguez MD Work Phone: [facility] 07-07-2022 10:52-0500 Diastolic blood pressure 78 mm[Hg] Guillaume Oliver Work Phone: [facility] 07-07-2022 10:52-0500 Heart rate 61 /min Guillaume Dominguez MD Work Phone: [facility] 07-07-2022 10:52-0500 Respiratory rate 18 /min Guillaume Dominguez MD Work Phone: [facility] 07-07-2022 10:52-0500 SaO2% (BldA) [Mass fraction] 95 % Guillaume Dominguez MD Work Phone: [facility] 07-07-2022 10:52-0500 Systolic blood pressure 118 mm[Hg] Guillaume Dominguez MD Work Phone: [facility] 06-11-2022 11:21-0500 Body height 167.6 cm Maykel Patel Jr., MD Work Phone: [facility] 06-11-2022 11:21-0500 Body weight 108.86 kg Maykel Patel Jr., MD Work Phone: [facility] 06-11-2022 11:21-0500 Diastolic blood pressure 69 mm[Hg] Maykel Patel Jr., MD Work Phone: [facility] 06-11-2022 11:21-0500 Systolic blood pressure 122 mm[Hg] Maykel Patel Jr., MD Work Phone: [facility] 05-12-2022 17:18-0500 Body weight 109.32 kg Guillaume Dominguez MD Work Phone: [facility] 05-12-2022 17:18-0500 Diastolic blood pressure 72 mm[Hg] Guillaume Oliver Work Phone: [facility] 05-12-2022 17:18-0500 Heart rate 78 /min Guillaume Dominguez MD Work Phone: [facility] 05-12-2022 17:18-0500 SaO2% (BldA) [Mass fraction] 100 % Guillaume Dominguez MD Work Phone: [facility] 05-12-2022 17:18-0500 Systolic blood pressure 118 mm[Hg] Guillaume Dominguez MD Work Phone: [facility] 05-06-2022 15:42-0500 Body temperature 98.29 [degF] Janae Praisler-Wood SWITCH OPERATORS SUPERVISOR.TRAINING AND DEVELOPMENT REP Work Phone: [facility] 05-06-2022 15:42-0500 Body weight 111.77 kg Janae Praisler-Wood SWITCH OPERATORS SUPERVISOR.TRAINING AND DEVELOPMENT REP Work Phone: [facility] 05-06-2022 15:42-0500 Diastolic blood pressure 78 mm[Hg] Janae Praisler-Wood SWITCH OPERATORS SUPERVISOR.TRAINING AND DEVELOPMENT REP Work Phone: [facility] 05-06-2022 15:42-0500 Heart rate 105 /min Janae Praisler-Wood SWITCH OPERATORS SUPERVISOR.TRAINING AND DEVELOPMENT REP Work Phone: [facility] 05-06-2022 15:42-0500 Respiratory rate 30 /min Janae Praisler-Wood SWITCH OPERATORS SUPERVISOR.TRAINING AND DEVELOPMENT REP Work Phone: [facility] 05-06-2022 15:42-0500 SaO2% (BldA) [Mass fraction] 98 % Janaeradha Sandoval SWITCH OPERATORS SUPERVISOR.TRAINING AND DEVELOPMENT REP Work Phone: [facility] 05-06-2022 15:42-0500 Systolic blood pressure 110 mm[Hg] Janae Sandoval SWITCH OPERATORS SUPERVISOR.TRAINING AND DEVELOPMENT REP Work Phone: [facility] 04-28-2022 09:40-0500 Body height 165.1 cm Respiratory Wstr Work Phone: [facility] 04-28-2022 09:40-0500 Body weight 112.04 kg Respiratory Wstr Work Phone: [facility] 04-28-2022 09:40-0500 Heart rate 62 /min Respiratory Wstr Work Phone: [facility] 04-28-2022 09:40-0500 Respiratory rate 16 /min Respiratory Wstr Work Phone: [facility] 04-28-2022 09:40-0500 SaO2% (BldA) [Mass fraction] 97 % Respiratory Wstr Work Phone: [facility] 04-27-2022 13:37-0500 Body weight 112.04 kg Guillaume Dominguez MD Work Phone: [facility] 04-27-2022 13:37-0500 Diastolic blood pressure 82 mm[Hg] Guillaume Oliver Work Phone: [facility] 04-27-2022 13:37-0500 Heart rate 88 /min Guillaume Dominguez MD Work Phone: [facility] 04-27-2022 13:37-0500 SaO2% (BldA) [Mass fraction] 97 % Guillaume Dominguez MD Work Phone: [facility] 04-27-2022 13:37-0500 Systolic blood pressure 138 mm[Hg] Guillaume Dominguez MD Work Phone: [facility] 03-11-2022 09:17-0400 Body height 167.6 cm Oralia Garcia SWITCH OPERATORS SUPERVISOR.TRAINING AND DEVELOPMENT REP Work Phone: [facility] 03-11-2022 09:17-0400 Body weight 112.63 kg Oralia Garcia APRN.TRAINING AND DEVELOPMENT REP Work Phone: [facility] 03-11-2022 09:17-0400 Heart rate 92 /min Oralia Garcia SWITCH OPERATORS SUPERVISOR.TRAINING AND DEVELOPMENT REP Work Phone: [facility] 03-11-2022 09:17-0400 SaO2% (BldA) [Mass fraction] 96 % Oralia Garcia SWITCH OPERATORS SUPERVISOR.TRAINING AND DEVELOPMENT REP Work Phone: [facility] 03-04-2022 15:19-0400 Diastolic blood pressure 77 mm[Hg] Radha Walters MD Work Phone: [facility] 03-04-2022 15:19-0400 Heart rate 103 /min Radha Walters MD Work Phone: [facility] 03-04-2022 15:19-0400 Respiratory rate 18 /min Radha Walters MD Work Phone: [facility] 03-04-2022 15:19-0400 SaO2% (BldA) [Mass fraction] 96 % Radha Walters MD Work Phone: [facility] 03-04-2022 15:19-0400 Systolic blood pressure 107 mm[Hg] Radha Oliver Work Phone: [facility] 02-28-2022 08:37-0400 Diastolic blood pressure 83 mm[Hg] [facility] Work Phone: 02-28-2022 08:37-0400 Heart rate 75 /min [facility] Work Phone: 02-28-2022 08:37-0400 Respiratory rate 18 /min [facility] Work Phone: 02-28-2022 08:37-0400 SaO2% (BldA) [Mass fraction] 95 % [facility] Work Phone: 02-28-2022 08:37-0400 Systolic blood pressure 143 mm[Hg] [facility] Work Phone: 02-28-2022 05:36-0400 Body height 167.64 cm [facility] Work Phone: 02-28-2022 05:36-0400 Body mass index (BMI) [Ratio] 39.8 kg/m2 [facility] Work Phone: 02-28-2022 05:36-0400 Body temperature 98.6 [degF] [facility] Work Phone: 02-28-2022 05:36-0400 Body weight 111.9 kg [facility] Work Phone: 02-21-2022 02:46-0400 Diastolic blood pressure 73 mm[Hg] [facility] Work Phone: 02-21-2022 02:46-0400 Heart rate 75 /min [facility] Work Phone: 02-21-2022 02:46-0400 SaO2% (BldA) [Mass fraction] 97 % [facility] Work Phone: 02-21-2022 02:46-0400 Systolic blood pressure 94 mm[Hg] [facility] Work Phone: 02-21-2022 01:15-0400 Respiratory rate 22 /min [facility] Work Phone: 02-21-2022 01:08-0400 Body height 167.64 cm [facility] Work Phone: 02-21-2022 01:08-0400 Body mass index (BMI) [Ratio] 40 kg/m2 [facility] Work Phone: 02-21-2022 01:08-0400 Body temperature 96.7 [degF] [facility] Work Phone: 02-21-2022 01:08-0400 Body weight 112.6 kg [facility] Work Phone: 02-16-2022 20:55-0400 Respiratory rate 16 /min [facility] Work Phone: 02-16-2022 16:44-0400 Body height 167.64 cm [facility] Work Phone: 02-16-2022 16:44-0400 Body mass index (BMI) [Ratio] 39.6 kg/m2 [facility] Work Phone: 02-16-2022 16:44-0400 Body temperature 96.9 [degF] [facility] Work Phone: 02-16-2022 16:44-0400 Body weight 111.58 kg [facility] Work Phone: 02-16-2022 16:44-0400 Diastolic blood pressure 116 mm[Hg] [facility] Work Phone: 02-16-2022 16:44-0400 Heart rate 78 /min [facility] Work Phone: 02-16-2022 16:44-0400 SaO2% (BldA) [Mass fraction] 98 % [facility] Work Phone: 02-16-2022 16:44-0400 Systolic blood pressure 167 mm[Hg] [facility] Work Phone: 02-10-2022 14:58-0400 Body height 165.1 cm Guillaume Dominguez MD Work Phone: [facility] 02-10-2022 14:58-0400 Body weight 111.58 kg Guillaume Dominguez MD Work Phone: [facility] 02-10-2022 14:58-0400 Diastolic blood pressure 68 mm[Hg] Guillaume Oliver Work Phone: [facility] 02-10-2022 14:58-0400 Heart rate 82 /min Guillaume Dominguez MD Work Phone: [facility] 02-10-2022 14:58-0400 Systolic blood pressure 112 mm[Hg] Guillaume Dominguez MD Work Phone: [facility] 01-19-2022 14:43-0400 Body temperature 98.71 [degF] Comfort Patterson SWITCH OPERATORS SUPERVISOR.SURFACE BOSS Work Phone: [facility] 01-19-2022 14:43-0400 Body weight 112.49 kg Comfort Patterson SWITCH OPERATORS SUPERVISOR.SURFACE BOSS Work Phone: [facility] 01-19-2022 14:43-0400 Diastolic blood pressure 64 mm[Hg] Comfort Patterson SWITCH OPERATORS SUPERVISOR.SURFACE BOSS Work Phone: [facility] 01-19-2022 14:43-0400 Heart rate 72 /min Comfort Patterson SWITCH OPERATORS SUPERVISOR.SURFACE BOSS Work Phone: [facility] 01-19-2022 14:43-0400 Respiratory rate 24 /min Comfort Patterson SWITCH OPERATORS SUPERVISOR.SURFACE BOSS Work Phone: [facility] 01-19-2022 14:43-0400 SaO2% (BldA) [Mass fraction] 97 % Comfort Patterson SWITCH OPERATORS SUPERVISOR.SURFACE BOSS Work Phone: [facility] 01-19-2022 14:43-0400 Systolic blood pressure 112 mm[Hg] Comfort Patterson SWITCH OPERATORS SUPERVISOR.SURFACE BOSS Work Phone: [facility] 12-17-2021 14:14-0400 Body temperature 96.69 [degF] Sasha Xavi SWITCH OPERATORS SUPERVISOR.TRAINING AND DEVELOPMENT REP Work Phone: [facility] 12-17-2021 14:14-0400 Body weight 114.49 kg Sasha Xavi SWITCH OPERATORS SUPERVISOR.TRAINING AND DEVELOPMENT REP Work Phone: [facility] 12-17-2021 14:14-0400 Diastolic blood pressure 82 mm[Hg] Sasha Xavi SWITCH OPERATORS SUPERVISOR.TRAINING AND DEVELOPMENT REP Work Phone: [facility] 12-17-2021 14:14-0400 Heart rate 90 /min Sasha Xavi SWITCH OPERATORS SUPERVISOR.TRAINING AND DEVELOPMENT REP Work Phone: [facility] 12-17-2021 14:14-0400 Respiratory rate 20 /min Sasha Xavi SWITCH OPERATORS SUPERVISOR.TRAINING AND DEVELOPMENT REP Work Phone: [facility] 12-17-2021 14:14-0400 SaO2% (BldA) [Mass fraction] 97 % Sasha Hurley SWITCH OPERATORS SUPERVISOR.TRAINING AND DEVELOPMENT REP Work Phone: [facility] 12-17-2021 14:14-0400 Systolic blood pressure 130 mm[Hg] Sasha Hurley APRN.TRAINING AND DEVELOPMENT REP Work Phone: [facility] 11-03-2021 10:33-0400 Body height 167.6 cm Gamaliel Alegre MD Work Phone: [facility] 11-03-2021 10:33-0400 Body weight 113.63 kg Gamaliel Alegre MD Work Phone: [facility] 11-03-2021 10:33-0400 Diastolic blood pressure 86 mm[Hg] Gamaliel Leonard i, MD Work Phone: [facility] 11-03-2021 10:33-0400 Heart rate 81 /min Gamaliel Alegre MD Work Phone: [facility] 11-03-2021 10:33-0400 SaO2% (BldA) [Mass fraction] 98 % Gamaliel Alegre MD Work Phone: [facility] 11-03-2021 10:33-0400 Systolic blood pressure 124 mm[Hg] Gamaliel Alegre MD Work Phone: [facility] 10-03-2021 14:32-0400 Body weight 112.95 kg Iban Soto MD Work Phone: [facility] 10-03-2021 14:32-0400 Diastolic blood pressure 68 mm[Hg] Iban Soto MD Work Phone: [facility] 10-03-2021 14:32-0400 Heart rate 60 /min Iban Soto MD Work Phone: [facility] 10-03-2021 14:32-0400 Respiratory rate 20 /min Iban Soto MD Work Phone: [facility] 10-03-2021 14:32-0400 SaO2% (BldA) [Mass fraction] 96 % Iban Soto MD Work Phone: [facility] 10-03-2021 14:32-0400 Systolic blood pressure 126 mm[Hg] Iban Soto MD Work Phone: [facility] 08-22-2021 14:29-0400 Body weight 114.76 kg Curtis Nassar MD Work Phone: [facility] 08-22-2021 14:29-0400 Diastolic blood pressure 74 mm[Hg] Curtis Oliver Work Phone: [facility] 08-22-2021 14:29-0400 Heart rate 55 /min Curtis Nassar MD Work Phone: [facility] 08-22-2021 14:29-0400 Systolic blood pressure 112 mm[Hg] Curtis Nassar MD Work Phone: [facility] Encounters Encounter Date Encounter Type Care Provider Facility Start: 01-26-2025 End: 01-26-2025 ambulatory Guillaume D Talampas Facility:[facility] Start: 12-25-2024 End: 12-25-2024 Telephone encounter Radha Walters MD Work Phone: Dermatology Comment on above: Patient Update Start: 12-19-2024 ambulatory Guillaume Melody Santiagoampas Facilit y:[facility] Start: 11-03-2024 ambulatory Guillaume D Jackampas Facilit y:[facility] Start: 10-31-2024 Registered Referred Deep Dela Cruz MD -[facility] Start: 10-31-2024 End: 10-31-2024 ambulatory Guillaume D Talampas Facility:[facility] Start: 10-26-2024 Registered Referred Deep Dela Cruz MD -[facility] Start: 10-26-2024 End: 10-26-2024 ambulatory Guillaume D Talampas Facility:[facility] Start: 09-26-2024 End: 09-26-[address] Guillaume Dominguez MD Work Phone: [facility] Work Phone: Start: 09-26-2024 End: 09-26-2024 Departed Referred Deep Dela Cruz MD -[facility] Start: 09-26-2024 Registered Referred Deep Dela Cruz MD -[facility] Start: 09-26-2024 End: 09-26-2024 ambulatory Guillaume Dominguez Facility:[facility] Start: 09-21-2024 End: 09-21-[address] Guillaume Dominguez MD Work Phone: [facility] Work Phone: Start: 09-21-2024 End: 09-21-2024 Departed Referred Deep Dela Cruz MD -[facility] Start: 09-21-2024 End: 09-21-2024 ambulatory Deep BABCOCK Facility:[facility] Start: 09-18-2024 End: 09-18-2024 ambulatory Guillaume Dominguez MD Work Phone: [facility] Start: 09-18-2024 End: 09-18-2024 Patient encounter procedure Guillaume Dominguez MD Work Phone: [facility] Comment on above: Population Health Na vigation Outreach ([facility] ) Start: 09-11-2024 End: 09-11-2024 Departed Referred Deep Dela Cruz MD -[facility] Start: 09-11-2024 Registered Referred Deep Dela Cruz MD -[facility] Start: 09-11-2024 End: 09-11-2024 ambulatory Deep BABCOCK Facility:[facility] Start: 08-17-2024 End: 08-17-2024 ambulatory Guillaume Dominguez MD Work Phone: [facility] Start: 08-17-2024 End: 08-17-2024 Patient encounter procedure Guillaume Dominguez MD Work Phone: [facility] Comment on above: Population Health Na vigation Outreach ([facility] ) Start: 08-11-2024 End: 08-11-[address] Guillaume Dominguez MD Work Phone: [facility] Work Phone: Start: 08-11-2024 End: 08-11-2024 Departed [facility] Start: 08-11-2024 Registered Referred Deep Dela Cruz MD -[facility] Start: 08-11-2024 End: 08-11-2024 ambulatory Guillaume Melody Talampas Facility:[facility] Start: 08-09-2024 End: 08-16-2024 Telephone encounter Adina Lay APRN.[facility] Work Phone: [facility] Comment on above: Medication Dosage Ad justment Start: 08-08-2024 End: 08-08-[address] 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, subsequent encounter (Primary Dx) Start: 08-03-2024 End: 08-03-2024 ambulatory TIKA JONES Facility:[facility] Start: 08-02-2024 End: 08-02-2024 ambulatory TIKA JONES [facility] Start: 08-02-2024 End: 08-02-2024 Subsequent hospital visit by physician Tika Jones MD Work Phone: [facility] Comment on above: Nontraumatic intracr anial hemorrhage, unspecified (HCC) Start: 08-01-2024 End: 10-31-2024 Telephone encounter Tika Jones MD Work Phone: [facility] Comment on above: 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 Intracranial hemorrh age (HCC) (Primary Dx) Nontraumatic intracr anial hemorrhage, unspecified (HCC) (Primary Dx) Start: 07-25-2024 ambulatory Guillaume D Talampas Facilit y:[facility] Start: 07-25-2024 Registered Referred Deep Dela Cruz MD -[facility] Start: 07-10-2024 ambulatory Guillaume D Talampas Facilit y:[facility] Start: 07-10-2024 Registered Referred Deep Dela Cruz MD -[facility] Start: 06-22-2024 End: 06-22-2024 Refill Rajiv Walker MD Work Phone: [facility] Comment on above: Refill Request Start: 06-20-2024 End: 06-20-2024 Departed Referred Deep Dela Cruz MD -[facility] Start: 06-20-2024 End: 06-20-2024 ambulatory Guillaume D Talampas Facility:[facility] Start: 06-13-2024 End: 06-20-2024 Refill Rajiv Walker MD Work Phone: [facility] Comment on above: Refill Request Start: 06-09-2024 ambulatory Guillaume D Talampas Facilit y:[facility] Start: 06-09-2024 Registered Referred Deep Dela Cruz MD -[facility] Start: 06-05-2024 ambulatory Guillaume D Talampas Facilit y:[facility] Start: 06-05-2024 Registered Referred Deep Dela Cruz MD -[facility] Start: 05-29-2024 End: 05-29-2024 Telephone encounter Guillaume Dominguez MD Work Phone: Internal Medicine [place] Comment on above: [facility] requesting records Start: 05-29-2024 ambulatory Guillaume D Talampas Facilit y:[facility] Start: 05-29-2024 Registered Referred Deep Dela Cruz MD -[facility] Start: 05-22-2024 End: 07-04-2024 Telephone encounter Guillaume Dominguez MD Work Phone: Internal Medicine [place] Comment on above: Faxed to [facility] Start: 05-22-2024 ambulatory Guillaume Dominguez Facilit y:[place] [facility] Start: 05-22-2024 Registered Referred Deep Dela Cruz MD -[facility] Start: 05-09-2024 End: 05-11-2024 Telephone encounter Adina Lay APRN.TRAINING AND DEVELOPMENT REP Work Phone: [facility] Start: 05-06-2024 End: 05-06-2024 ambulatory Amanda Patterson SWITCH OPERATORS SUPERVISOR.TRAINING AND DEVELOPMENT REP Work Phone: Critical Care Start: 05-06-2024 Emergency department patient visit GUILLAUME DOMINGUEZ Facility:[facility] Start: 05-05-2024 End: 05-06-2024 Emergency department patient visit Dr. Arden Leger MD -Emergency Department Work Phone: Start: 05-05-2024 End: 05-05-2024 Telemedicine consultation with patient Adina Lay GM.TRAINING AND DEVELOPMENT REP Work Phone: [facility] Start: 05-05-2024 End: 05-05-2024 ambulatory Adina Lay APRN.TRAINING AND DEVELOPMENT REP Work Phone: [facility] Comment on above: Type 2 diabetes leonie [...] End: 04-28-2024 Office outpatient visit 25 minutes Guillauem Dominguez MD Work Phone: Internal Medicine [place] Comment on above: Pruritic condition ( Primary Dx); Anemia, unspecified type; Type 2 diabetes mellitus with peripheral neuropathy (HCC); Vitamin D deficiency; Vitamin B12 deficiency; Pedal edema; Dementia, unspecified dementia severity, unspecified dementia type, unspecified whether behavioral, psychotic, or mood disturbance or anxiety (HCC) Start: 04-28-2024 End: 04-28-2024 ambulatory GUILLAUME DOMINGUEZ Facility:[facility] Start: 04-25-2024 ambulatory Guillaume Toddjulianne Facilit y:[facility] Start: 04-14-2024 End: 04-14-2024 Telephone encounter Oralia Garcia APRN.TRAINING AND DEVELOPMENT REP Work Phone: Pain Management Comment on above: Appointment Start: 03-30-2024 End: 03-30-2024 ambulatory MORAIMA MONTELONGO Facility:[facility] Start: 03-10-2024 End: 03-10-2024 Telephone encounter Moraima Montelongo MD Work Phone: Pain Management Comment on above: Cardiac Clearance (A nticoagulation ) Lumbar spondylosis ( Primary Dx); Spondylolisthesis of lumbar region; Radiculopathy, lumbar region Start: 03-10-2024 End: 03-10-2024 ambulatory ORALIA GARCIA Facility:[facility] Start: 03-10-2024 End: 03-10-2024 Patient encounter procedure Oralia Garcia APRN.TRAINING AND DEVELOPMENT REP Work Phone: Pain Management Comment on above: Lumbar spondylosis ( Primary Dx); Radiculopathy, lumbar region Start: 01-13-2024 Telephone encounter Guillaume ventura MD Work Phone: [facility] [place] Comment on above: requesting allergy l ist to be faxed to [facility] Start: 01-10-2024 End: 01-10-2024 Office outpatient visit 15 minutes Comfort Patterson APRN.SURFACE BOSS Work Phone: Internal Medicine [place] Comment on above: UTI symptoms (Primar y Dx) Start: 01-10-2024 End: 01-10-2024 ambulatory COMFORT PATTERSON Facility:[facility] Start: 12-31-2023 Telephone encounter Josefa ramirez APRN.TRAINING AND DEVELOPMENT REP Work Phone: Internal Medicine [place] Comment on above: Results Start: 12-27-2023 End: 12-27-2023 ambulatory JOSEFA CAPUTO Facility:[facility] Start: 12-27-2023 End: 12-27-2023 Subsequent hospital visit by physician Laury [facility] [place] Work Phone: Radiology Comment on above: Acute pain of right knee [M25.561] Start: 12-24-2023 End: 12-24-2023 Patient encounter procedure Josefa Caputo SWITCH OPERATORS SUPERVISOR.TRAINING AND DEVELOPMENT REP Work Phone: [facility] [place] Comment on above: Acute pain of right knee (Primary Dx) Start: 12-21-2023 Refill Guillaume abarca MD Work Phone: [facility] [place] Comment on above: Refill Request Start: 12-10-2023 End: 12-10-2023 Office outpatient visit 25 minutes Guillaume Dominguez MD Work Phone: Internal Medicine [place] Comment on above: Cognitive impairment (Primary Dx); [...] Guillaume ventura MD Work Phone: Internal Medicine [place] Comment on above: Patient Update; Medi cation Problem Start: 11-05-2023 ambulatory Radha Walters MD Work Phone: Dermatology Comment on above: Medical necessity Start: 10-29-2023 End: 10-29-2023 Patient encounter procedure Curtis Nassar MD Work Phone: Endocrinology [place] Comment on above: Type 2 diabetes leonie itus with peripheral neuropathy (HCC) (Primary Dx) Start: 10-28-2023 Refill Guillaume abarca MD Work Phone: [facility] [place] Comment on above: Refill Request Start: 10-11-2023 End: 10-11-2023 Office outpatient visit 25 minutes Comfort Patterson APRN.SURFACE BOSS Work Phone: Internal Medicine [place] Comment on [...] Telephone encounter Rajiv domingo MD Work Phone: [facility] Comment on above: Medication Problem Start: 10-04-2023 End: 10-04-2023 Nursing evaluation of patient and report Mi Nurse Work Phone: [facility] [place] Comment on above: Pernicious anemia (P rimary Dx) Start: 09-28-2023 Telephone encounter Rajiv domingo MD Work Phone: [facility] Comment on above: Medication Problem Start: 09-17-2023 Refill Guillaume abarca MD Work Phone: Internal Medicine [place] Comment on above: Refill Request Start: 09-06-2023 End: 09-06-2023 Nursing evaluation of patient and report Mi Nurse Work Phone: [facility] [place] Comment on above: Pernicious anemia (P rimary Dx) Start: 08-16-2023 Telephone encounter Josefa ramirez APRN.TRAINING AND DEVELOPMENT REP Work Phone: Internal Medicine [place] Comment on above: Orders Medication Problem Start: 08-13-2023 Telephone encounter Guillaume ventura MD Work Phone: Internal Medicine [place] Comment on above: Insurance Authorizat ion PA required Start: 08-13-2023 End: 08-13-2023 Patient encounter procedure Josefa Caputo SWITCH OPERATORS SUPERVISOR.TRAINING AND DEVELOPMENT REP Work Phone: Internal Medicine [place] Comment on above: Current moderate epi sode [...] report Mi Nurse Work Phone: Family Medicine [place] Comment on above: Pernicious anemia (P rimary Dx) Start: 07-29-2023 End: 07-29-2023 Patient encounter procedure Radha Walters MD Work Phone: Dermatology Comment on above: Seborrheic keratosis (Primary Dx); Lichen sclerosus et atrophicus; 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 Start: 07-21-2023 End: 07-21-2023 Subsequent hospital visit by physician [facility] Start: 07-08-2023 End: 07-08-2023 Patient encounter procedure Rajiv Walker MD Work Phone: Endocrinology [place] Comment on above: 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, without long-term current use of insulin (HCC) (Primary Dx); Class 1 obesity due to excess calories with serious comorbidity and body mass index (BMI) of 34.0 to 34.9 in adult Start: 07-07-2023 Telephone encounter Guillaume ventura MD Work Phone: Internal Medicine [place] Comment on above: Abnormal mammogram l nikki [...] 06-12-2023 End: 06-12-2023 [facility] Start: 05-14-2023 End: 05-14-2023 Office outpatient visit 25 minutes Guillaume Dominguez MD Work Phone: Internal Medicine [place] Comment on above: Memory difficulties (Primary Dx); Vitamin D deficiency; Chronic cough; Type 2 diabetes mellitus with peripheral neuropathy (HCC); Breast cancer screening by mammogram; Encounter for immunization Start: 05-04-2023 End: 05-04-2023 Nursing evaluation of patient and report Mi Nurse Work Phone: [facility] Comment on above: Pernicious anemia (P rimary Dx) Start: 03-30-2023 End: 03-30-2023 ambulatory Curtis Nassar MD Work Phone: [facility] Comment on above: Type 2 diabetes leonie itus with peripheral neuropathy (HCC) (Primary Dx) Start: 03-30-2023 End: 03-30-2023 Telemedicine consultation with patient Curtis Nassar MD Work Phone: [facility] Start: 03-18-2023 Refill Josefa Caputo APRN.CNP Work Phone: Internal [facility] Comment on above: Refill Request Start: 03-04-2023 End: 03-04-2023 Nursing evaluation of patient and report Mi Nurse Work Phone: [facility] Comment on above: Pernicious anemia (P rimary Dx) Start: 02-26-2023 End: 02-26-2023 [facility] Start: 02-19-2023 Refill Guillaume abarca MD Work Phone: Internal Medicine [place] Comment on above: Refill Request Start: 02-04-2023 End: 02-04-2023 Nursing evaluation of patient and report Mi Nurse Work Phone: [facility] Comment on above: Pernicious anemia (P rimary Dx) Start: 02-02-2023 Telephone encounter Josefa Cleav er SWITCH OPERATORS SUPERVISOR.TRAINING AND DEVELOPMENT REP Work Phone: [facility] Comment on above: Orders Start: 02-02-2023 End: 02-02-2023 Patient encounter procedure Josefa Flynn GM.TRAINING AND DEVELOPMENT REP Work Phone: Internal Medicine [place] Comment on above: Hypotension due to d rugs (Primary Dx); Chronic fatigue; Memory deficit; Obesity, Class II, BMI 35-39.9; Need for influenza vaccination; Encounter for therapeutic drug monitoring; Type 2 diabetes mellitus with peripheral neuropathy (HCC); Mixed hyperlipidemia Start: 01-28-2023 End: 01-28-2023 Subsequent hospital visit by physician [facility] Work Phone: Cardiology Lab Comment on above: Irregular heart rhyt hm [I49.9] Start: 01-27-2023 Telephone encounter Jo-Ann abarca braille and talking books clerk Lab Comment on above: Reminder Call Start: 01-13-2023 Telephone encounter Guillaume ventura MD Work Phone: Internal Medicine [place] Comment on above: Forms Start: 01-11-2023 End: [...] Telephone encounter Curtis landin MD Work Phone: [facility] Comment on above: Medication Problem Start: 01-04-2023 End: 01-04-2023 Nursing evaluation of patient and report Mi Nurse Work Phone: Family Medicine [place] Comment on above: Pernicious anemia (P rimary Dx) Start: 12-30-2022 End: 12-30-2022 Patient encounter procedure Curtis Nassar MD Work Phone: [facility] Comment on above: DM (diabetes mellitu s), type 2 with neurological complications (HCC) (Primary Dx); Type 2 diabetes mellitus with peripheral neuropathy (HCC) Start: 12-25-2022 Telephone encounter Moraima allen MD Work Phone: Pain Management Comment on above: Patient Question Start: 12-04-2022 Refill Guillaume abarca MD Work Phone: Internal [facility] Start: 11-06-2022 End: 11-06-2022 ambulatory Nhi O'Kwame PT [facility] Physical Therapy Comment on above: Spinal stenosis of l umbar region, unspecified whether neurogenic claudication present (Primary Dx); Lumbar spondylosis; Spondylolisthesis of lumbar region; Radiculopathy, lumbar region Start: 11-03-2022 End: 11-03-2022 Nursing evaluation of patient and report Mi Nurse Work Phone: [facility] Comment on above: Pernicious anemia (P rimary Dx) Start: 10-27-2022 Telephone encounter Josefa ramirez APRN.TRAINING AND DEVELOPMENT REP Work Phone: [facility] Comment on above: 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 Start: 10-27-2022 End: 10-27-2022 Patient encounter procedure Josefa Caputo APRN.TRAINING AND DEVELOPMENT REP Work Phone: [facility] Comment on above: Current moderate epi sode of major depressive disorder, unspecified whether recurrent (HCC) (Primary Dx); Anxiety disorder, unspecified type; Radiculopathy, lumbar region; Chronic SI joint pain; Single subsegmental pulmonary embolism without acute cor pulmonale (HCC); Type 2 diabetes mellitus with peripheral neuropathy (HCC) Start: 10-12-2022 End: 10-12-2022 ambulatory Nhi O'Kwame PT [facility] Physical [facility] Comment on above: Spinal stenosis of l umbar region, unspecified whether neurogenic claudication present (Primary Dx); Lumbar spondylosis; Spondylolisthesis of lumbar region; Radiculopathy, lumbar region Refill Request Start: 10-02-2022 Telephone encounter Moraima allen MD Work Phone: Pain Management Comment on above: Anticoagulation Start: 09-29-2022 End: 09-29-2022 Nursing evaluation of patient and report Mi Nurse Work Phone: [facility] [place] Comment on above: Pernicious anemia (P rimary Dx) Start: 09-25-2022 Refill Curtis allen MD Work Phone: Endocrinology [place] Comment on above: Refill Request Start: 09-23-2022 End: 09-23-2022 Refill Guillaume Dominguez MD Work Phone: Internal Medicine [place] Comment on above: Refill Request Kidney stone [...] Start: 09-10-2022 End: 09-10-2022 ambulatory Lucia Rojas EXECUTIVE ACCOUNT MANAGER Work Phone: [facility] Comment on above: Spinal stenosis of l umbar region, unspecified whether neurogenic claudication present (Primary Dx); Lumbar spondylosis; Spondylolisthesis of lumbar region; Radiculopathy, lumbar region Start: 09-03-2022 End: 09-03-2022 ambulatory Veda Vital PT Work Phone: [facility] Comment on above: Spinal stenosis of l umbar region, unspecified whether neurogenic claudication present (Primary Dx); Lumbar spondylosis; Spondylolisthesis of lumbar region; Radiculopathy, lumbar region Start: 09-01-2022 End: 09-01-2022 Nursing evaluation of patient and report Mi Nurse Work Phone: [facility] Comment on above: Pernicious anemia (P rimary Dx) Start: 09-01-2022 End: 09-01-2022 ambulatory Veda Vital PT Work Phone: [facility] Comment on above: Spinal stenosis of l umbar region, unspecified whether neurogenic claudication present (Primary Dx); Lumbar spondylosis; Spondylolisthesis of lumbar region; Radiculopathy, lumbar region Start: 08-24-2022 Telephone encounter Guillaume ventura MD Work Phone: Internal Medicine [place] Comment on above: Patient Question Patient Update; Appo intment Start: 08-18-2022 End: 08-18-2022 ambulatory Veda Vital PT Work Phone: [facility] Comment on above: Spinal stenosis [...] Refill Curtis allen MD Work Phone: Endocrinology [place] Comment on above: Refill Request Start: 08-04-2022 End: 08-04-2022 Nursing evaluation of patient and report Mi Nurse Work Phone: Family Medicine [place] Comment on above: Pernicious anemia (P rimary Dx) Start: 08-03-2022 Telephone encounter Guillaume ventura MD Work Phone: Internal Medicine [place] Comment on above: handicap prescriptio n Start: 07-31-2022 Telephone encounter Moraima allen MD Work Phone: Pain Management Comment on above: Patient Question Start: 07-07-2022 End: 07-07-2022 Nursing evaluation of patient and report Mi Nurse Work Phone: Family Medicine [place] Comment on above: Pernicious anemia (P rimary Dx) Start: 07-07-2022 End: 07-07-2022 Office outpatient visit 15 minutes Guillaume Dominguez MD Work Phone: Internal Medicine [place] Comment on above: Spondylolisthesis of lumbar region; [...] Guillaume ventura MD Work Phone: Internal Medicine [place] Comment on above: Patient Update Start: 06-17-2022 Telephone encounter Curtis ladnin MD Work Phone: [facility] Comment on above: Medication Question Start: 06-11-2022 End: 06-11-2022 Orders Only Moraima Montelongo MD Work Phone: Pain Management Comment on above: Spinal stenosis of l umbar region, unspecified whether neurogenic claudication present (Primary Dx); Lumbar spondylosis; Radiculopathy, lumbar region; Spondylolisthesis of lumbar region Kidney stone (Primar y Dx) Start: 06-04-2022 E-mail encounter bernard pool caregiver Maykel Patel Jr., MD Work Phone: [...] Guillaume Dominguez MD Work Phone: Internal Medicine [place] Comment on above: Crushing injury of r ight middle finger, sequela (Primary Dx); Renal calculus, left Start: 05-07-2022 Telephone encounter Maykel Patel MD Work Phone: Urology Comment on above: Eliquis question Start: 05-06-2022 End: 05-06-2022 Subsequent hospital visit by physician [facility] [place] Work Phone: Radiology Comment on above: Crushing injury of r ight middle finger, initial encounter [S67.192A] Start: 05-06-2022 End: 05-06-2022 Patient encounter procedure Janae Sandoval APRN.TRAINING AND DEVELOPMENT REP Work Phone: [place] [facility] Comment on above: Crushing injury of r ight middle finger, initial encounter (Primary Dx); Open fracture of tuft of distal phalanx of finger; Nausea Start: 05-06-2022 ambulatory Guillaume abarca MD Work Phone: Internal Medicine [place] Comment on above: Finger Injury Start: 05-04-2022 End: 05-04-2022 Nursing evaluation of patient and report Mi Nurse Work Phone: [facility] [place] Comment on above: Pernicious anemia (P rimary Dx) Start: 04-29-2022 End: 04-29-2022 Patient encounter procedure Moraima Montelongo MD Work Phone: Pain Management Comment on above: Lumbosacral facet tawanna int syndrome (Primary Dx); Spondylolisthesis of lumbar region; Spinal stenosis of lumbar region, unspecified whether neurogenic claudication present Start: 04-28-2022 End: 04-28-2022 ambulatory Respiratory Therapist [facility] Work Phone: Pulmonary Medicine Comment on above: Spirometry Start: 04-28-2022 End: 04-28-2022 Patient encounter procedure Respiratory Therapist [facility] Work Phone: [facility] Start: 04-27-2022 End: 04-27-2022 Office outpatient visit 40 minutes Guillaume Dominguez MD Work Phone: Internal Medicine [place] Comment on above: FIELD (dyspnea on exer tion) (Primary Dx); Dietary iron deficiency without anemia; Grade I diastolic dysfunction; Chronic cough; Renal calculus, left; Primary hypertension; Hypoalbuminemia; DM (diabetes mellitus), type 2 with neurological complications ([facility]); B12 deficiency; Vitamin D deficiency; Irregular heart rhythm; Memory difficulty; Class 2 severe obesity due to excess calories with serious comorbidity and body mass index (BMI) of 39.0 to 39.9 in adult (HCC); History of Jordin-en-Y gastric bypass Start: 04-09-2022 Telephone encounter Moraima allen MD Work Phone: Pain Management Comment on above: Patient Update; Appo intment Start: 04-08-2022 End: 04-08-2022 Subsequent hospital visit by physician Xr [facility] [place] Work Phone: Radiology Comment on above: Renal calculus, left [N20.0] Start: 04-06-2022 End: 04-06-2022 Nursing evaluation of patient and report Mi Nurse Work Phone: [facility] Comment on above: Pernicious anemia (P rimary Dx) Start: 03-23-2022 Refill Curtis allen MD Work Phone: Endocrinology [place] Comment on above: Refill Request Start: 03-19-2022 Telephone encounter Radha sutherland MD Work Phone: Dermatology Comment on above: Patient Question Start: 03-12-2022 Orders Only Moraima Montelongo MD Work Phone: Pain Management Comment on above: Chronic left SI join t pain (Primary Dx); Sacroiliac joint pain Start: 03-11-2022 End: 03-11-2022 Patient encounter procedure Oralia Shea Pura SWITCH OPERATORS SUPERVISOR.TRAINING AND DEVELOPMENT REP Work Phone: Pain Management Comment on above: [...] report Mi Nurse Work Phone: [facility] [place] Comment on above: Pernicious anemia (P rimary Dx); Need for vaccination Start: 02-28-2022 End: 02-28-2022 Emergency department patient visit [facility] Start: 02-27-2022 Telephone encounter Moraima allen MD Work Phone: Pain Management Comment on above: Patient Update Start: 02-21-2022 End: 02-21-2022 Emergency department patient visit [facility] Start: 02-16-2022 End: 02-16-2022 Emergency department patient visit [facility] Start: 02-16-2022 Telephone encounter Moraima allen MD Work Phone: Pain Management Comment on above: Medication Problem ( Stopped Eliquis for procedure-now has chest pain ) Start: 02-10-2022 End: 02-10-2022 Office outpatient visit 25 minutes Guillaume Dominguez MD Work Phone: Internal Medicine [place] Comment on above: Fatigue, unspecified type (Primary [...] Guillaume ventura MD Work Phone: Internal Medicine [place] Comment on above: Orders Start: 01-19-2022 End: 01-19-2022 Patient encounter procedure Comfort Patterson SWITCH OPERATORS SUPERVISOR.SURFACE BOSS Work Phone: Internal Medicine [place] Comment on above: Fatigue, unspecified type (Primary Dx); Iron deficiency Start: 01-12-2022 Orders Only Moraima Montelongo MD Work Phone: Pain Management Comment on above: Chronic left SI join t pain (Primary Dx); Sacroiliac joint pain; SI joint arthritis; Chronic SI joint pain Start: 01-05-2022 End: 01-05-2022 Orders Only Guillaume Dominguez MD Work Phone: Internal Medicine [place] Comment on above: Elevated ferritin (P rimary Dx) Pernicious anemia (P rimary Dx) Start: 12-17-2021 End: 12-17-2021 Patient encounter procedure Sasha Hurley APRN.TRAINING AND DEVELOPMENT REP Work Phone: [facility] Comment on above: Acute UTI (Primary D x); Urinary frequency; Glucosuria Start: 12-15-2021 Telephone encounter Guillaume ventura MD Work Phone: Internal Medicine [place] Comment on above: urine symptoms Start: 12-05-2021 Orders Only Gamaliel madrid MD Work Phone: Cardiology Start: 12-04-2021 Telephone encounter Gamaliel marcial MD Work Phone: Cardiology Comment on above: Patient Update Start: 11-03-2021 End: 11-03-2021 Nursing evaluation of patient and report Mi Nurse Work Phone: [facility] Comment on above: Pernicious anemia (P rimary [...] Guillaume abarca MD Work Phone: Internal Medicine [place] Comment on above: Refill Request Start: 10-07-2021 Telephone encounter Moraima allen MD Work Phone: Pain Management Comment on above: Appointment Start: 10-06-2021 Telephone encounter Tomer Soto MD Work Phone: Family [facility] Comment on above: Results Start: 10-03-2021 End: 10-03-2021 Subsequent hospital visit by physician [facility] [place] Work Phone: Radiology Comment on above: Shortness of breath on exertion [R06.02] Start: 10-03-2021 End: 10-03-2021 Patient encounter procedure Ibna Soto MD Work Phone: [facility] [place] Comment on above: Irregular heart beat (Primary Dx); Shortness of breath on exertion; Fatigue, unspecified type; Skin tear of left forearm without complication, initial encounter; Lightheadedness Start: 09-29-2021 Telephone encounter Guillaume ventura MD Work Phone: [facility] [place] Comment on above: Results Start: 09-22-2021 Refill Curtis allen MD Work Phone: [facility] Comment on above: Refill Request Start: 09-01-2021 End: 09-01-2021 Nursing evaluation of patient and report Mi Nurse Work Phone: [facility] Comment on above: Pernicious anemia (P rimary Dx) Start: 08-22-2021 End: 08-22-2021 Patient encounter procedure Curtis Nassar MD Work Phone: [facility] Comment on above: H/O gastric bypass ( Primary Dx); DM (diabetes mellitus), type 2 with neurological complications (HCC); Radiculopathy of thoracic region Start: 10-03-2018 End: 10-03-2018 Patient encounter procedure [facility] Start: 09-08-2017 End: 09-08-2017 [employer] Facility:[facility] Procedures Date Procedure Procedure Detail Performing [...] Comment: Speci men Type: BLOOD SPECIMENOrdering Facility: [facility] Address: [address] [place] [address] Performed By: #### T SCR ####[facility] BLOOD BANKCLIA [id number] [address] OF [place] Start: 05-05-2024 Computed tomography [...] 07-21-2023 Digital breast tomosynthesis unilateral Josefa Flynn SWITCH OPERATORS SUPERVISOR.TRAINING AND DEVELOPMENT REP Work Phone: Start: 06-12-2023 Plain X-ray of femur Start: 06-12-2023 CT of head without contrast Start: 06-12-2023 Pelvis X-ray Start: 05-14-2023 [employer]ered COVI D-19 VACCINE (2023-24 SEASON) AGE 12+ YR Guillaume Dominguez MD Work Phone: Start: 02-26-2023 Plain x-ray of pelvi s and lower extremity Start: 02-26-2023 CT of head without contrast Start: 02-02-2023 INFLUENZA VACCINE, P RSV FREE, AGE 65+ YR, HIGH DOSE, QUADRIVALENT (FLUZONE HIGH-DOSE) Josefa Caputo SWITCH OPERATORS SUPERVISOR.TRAINING AND DEVELOPMENT REP Work Phone: Start: 01-28-2023 Myocardial spect mul tiple studies Maykel Kayleigh Whitfield DO Work Phone: Start: 01-11-2023 [...] Radex fingr minimum 2 views Janae Sandoval SWITCH OPERATORS SUPERVISOR.[facility] Work Phone: Start: 04-28-2022 Brncdilat rspse spmt [...] BOOSTER VACCINE, AGE 12+ YR Comfort Patterson APRN.SURFACE BOSS Work Phone: Start: 02-28-2022 Computed tomography of [...] Estimated Glomer[facility] Fil[facility] Start: 05-09-2025 End: 05-09-2025 Patient encounter procedure 05/09/2025 2:00 PM EST Office Visit [facility] [place] [address] [place] [address] Guillaume Dominguez MD [address] [place] [address] 6 month follow up [facility] Medicine [place] Comment on above: 6 month follow up Start: 01-29-2025 Influenza vaccination Influ[facility] Start: 12-02-2024 Glaucoma screening Dilated Retinal Exam [facility] Start: 11-08-2024 End: 11-08-2024 Patient encounter procedure 11/08/2024 10:40 AM EDT Office Visit [facility] [place] [address] [place] [address] Guillaume Dominguez MD [address] [place] [address] 6 month follow up Internal Medicine [place] Comment on above: 6 month follow up Start: 09-27-2024 Glaucoma screening Dilated Retinal Exam [facility] Start: 08-26-2024 Hepatitis B surface antibody level LDL Cholesterol [facility] Start: 08-03-2024 End: 08-03-2024 Patient encounter procedure 08/03/2024 1:45 PM EST Appointment RADIO CT [facility] [address] [facility] [place] [address] CT BRAIN WO RADIO [facility] Comment on above: CT BRAIN WO Start: 08-03-2024 End: 08-03-2024 Patient encounter procedure Geriatrics Comment on above: Mild cognitive impairment [G31.84] [address] today Start: 08-01-2024 End: 08-01-2025 CT Head WO contrast CT head wo IV contrast Imaging Routine Nontraumatic intracranial hemorrhage, unspecified (HCC) Expected: 08/01/2024, Expires: 08/01/2025 [facility] Work Phone: Comment on above: Expected: 08/01/2024, Expires: Start: 07-13-2024 End: 07-13-2024 Patient encounter procedure RADIO CT [facility] Comment on above: brain wo [address] today CT BRAIN WO Start: 06-20-2024 End: 06-20-2024 Patient encounter procedure 06/20/2024 9:00 AM EST Office Visit Urology [address] [address] Maykel Patel Jr., MD [address] [place] [address] 1 year follow up Urology Comment on above: 1 year follow up Start: 05-31-2024 Advance Directive Discussion Advance Directive Discussion [facility] Start: 05-31-2024 Medicare Advantage Annual Wellness Visit Medicare Advantage Annual Wellness Visit [facility] Start: 05-18-2024 Diabetes: Urine Albumin-Creatinine Ratio for Kidney Health Diabetes: Urine Albumin-Creatinine Ratio for Kidney [facility] Start: 05-18-2024 Hepatitis B screening Urine Albumin:Creatinine Ratio [facility] Start: 05-18-2024 Hepatitis B surface antibody level LDL Cholesterol [facility] Start: 05-06-2024 End: 05-06-2024 Optx fem shft fx w/plate/screws w/wo cerclage ORIF FEMUR WITH PLATING Periprosthetic fracture of shaft of femur 05/06/2024 3:50 PM EST [place] Start: 05-06-2024 End: 05-06-2024 Craniectomy hmtma supratentorial extra/subdural CRANIOTOMY FOR EVACUATION OF SUPRATENTORIAL SUBDURAL HEMATOMA Subdural hematoma (HCC) 05/06/2024 8:00 AM EST [place] Start: 05-06-2024 [facility] Start: 05-06-2024 Aspiration precautions [facility] Start: 05-05-2024 End: 05-05-2024 Follow-up encounter 05/05/2024 10:00 AM EST [facility] [place] [id number] [place] [phone] Adina Lay APRN.TRAINING AND DEVELOPMENT REP [address] [place] [address] 6 month follow up Endocrinology [place] Comment on above: 6 month follow up Start: 05-05-2024 End: 05-05-2024 Patient encounter procedure 05/05/2024 10:00 AM EST Office Visit Endocrinology [place] [id number] [place] [phone] Adina Lay APRN.TRAINING AND DEVELOPMENT REP [address] [place] [address] 6 month follow up Endocrinology [place] Comment on above: 6 month follow up Start: 04-28-2024 End: 04-28-2024 Patient encounter procedure 04/28/2024 4:00 PM EST Office Visit Internal Medicine [place] [address] [place] [address] Guillaume Dominguez MD [address] [place] [address] 6 month follow up Internal Medicine [place] Comment on above: 6 month follow up Start: 03-30-2024 End: 03-30-2024 Admission to same day surgery center 03/30/2024 1:30 PM EDT - 03/30/2024 1:55 PM EDT Surgery [facility] [address] [place] [id number] Moraima Montelongo MD [address] [facility] [place] [address] INJECTION(S) ANESTHETIC AGENT AND STEROID TRANSFORAMINAL EPIDURAL LUMBAR W/IMAGE GUIDANCE FLUORO OR CT [facility] Comment on above: INJECTION(S) ANESTHETIC AGENT [...] physician 03/30/2024 1:30 PM EDT Hospital Encounter [facility] [address] [place] [address] Moraima Montelongo MD [address] [facility] [place] [address] Lumbar spondylosis [M47.816], Spondylolisthesis of lumbar region [M43.16], Radiculopathy, lumbar region [M54.16] [facility] Comment on above: Lumbar spondylosis [M47.816], Spondyloli sthesis of lumbar region [M43.16], Radiculopathy, lumbar region [M54.16] Start: 03-30-2024 End: 03-30-2024 Admission to same day surgery center 03/30/2024 7:53 AM EDT - 03/30/2024 8:18 AM EDT Surgery [facility] [address] [place] [address] Moraima Montelongo MD [address] [facility] [place] [address] INJECTION(S) ANESTHETIC AGENT AND STEROID TRANSFORAMINAL EPIDURAL LUMBAR W/IMAGE GUIDANCE FLUORO OR CT [facility] Comment on above: INJECTION(S) ANESTHETIC AGENT [...] physician 03/30/2024 7:53 AM EDT Hospital Encounter [facility] [address] [place] [address] Moraima Montelongo MD [address] [facility] [place] [address] Lumbar spondylosis [M47.816], Spondylolisthesis of lumbar region [M43.16], Radiculopathy, lumbar region [M54.16] [facility] Comment on above: Lumbar spondylosis [M47.816], Spondyloli sthesis of lumbar region [M43.16], Radiculopathy, lumbar region [M54.16] Start: 03-09-2024 End: 03-09-2024 Patient encounter procedure 03/09/2024 10:00 AM EDT Office Visit Dermatology [address] [address] Radha Walters MD [address] [place] [address] follow up Dermatology Comment on above: follow up Start: 02-27-2024 Hemoglobin A1c measurement HbA1C [facility] Start: 02-15-2024 End: 02-15-2024 Patient encounter procedure 02/15/2024 9:15 AM EDT Office Visit Urology [address] [place] [id number] Maykel Patel Jr., MD [address] [place] [address] 1 year follow up Urology Comment on above: 1 year follow up Start: 02-11-2024 End: 02-11-2024 Patient encounter procedure 02/11/2024 11:00 AM EDT Office Visit Internal Medicine [place] [address] [place] [address] [phone] Josefa Caputo APRN.[facility] [address] [place] [address] [phone] 3 month follow up Internal Medicine [place] Comment on above: 3 month follow up Start: 02-08-2024 End: 02-08-2024 Patient encounter procedure 02/08/2024 1:40 PM EDT Office Visit Internal Medicine [place] [address] [place] [address] [phone] Damaris Knott MD [address] [place], [place] [phone] srinivas consult with Dr. Knott per pcp [facility] [place] Comment on above: srinivas consult with Dr. Knott per pcp Start: 02-03-2024 ANNUAL PCP TEAM CHRONIC DISEASE VISIT ANNUAL PCP TEAM CHRONIC DISEASE VISIT [facility] Start: 02-03-2024 BP CONTROLLED (<130/80) BP CONTROLLED (<130/80) [facility] Start: 01-30-2024 COVID-19 Vaccine ( season) COVID-19 Vaccine () [facility] Start: 01-30-2024 Covid-19 Vaccine ( season) Covid-19 Vaccine () [facility] Start: 01-30-2024 Influenza vaccination [facility] Start: 01-26-2024 End: 01-26-2024 Patient encounter procedure [facility] [place] Comment on above: Nurse Visit srinivas consult with Dr Dara Knott per pcp Start: 01-12-2024 BP CONTROLLED (<130/80) BP CONTROLLED (<130/80) [facility] Start: 01-10-2024 End: 04-10-2024 Urinalysis complete panel - Urine URINALYSIS WITH MICROSCOPIC, REFLEX CULTURE Lab Routine UTI symptoms Expected: 01/10/2024, Expires: 04/10/2024 [facility] Comment on above: Expected: 01/10/2024, Expires: 4 Start: 12-11-2023 End: 03-11-2024 25-hydroxyvitamin D3 [Mass/volume] in Serum or Plasma VITAMIN D 25 HYDROXY Lab Routine Vitamin D deficiency History of Jordin-en-Y gastric bypass Encounter for long-term current use of medication Expected: 12/11/2023, Expires: 03/11/2024 [facility] Comment on above: Expected: 12/11/2023, Expires: 4 Start: 12-11-2023 End: 03-11-2024 CBC panel - Blood by Automated count COMPLETE BLOOD COUNT Lab Routine History of Jordin-en-Y gastric bypass Iron deficiency Encounter for long-term current use of medication Expected: 12/11/2023, Expires: 03/11/2024 [facility] Comment on above: Expected: 12/11/2023, Expires: 4 Start: 12-11-2023 End: 03-11-2024 Cobalamin (Vitamin B12) [Mass/volume] in Serum or Plasma VITAMIN B12 Lab Routine Vitamin B12 deficiency History of Jordin-en-Y gastric bypass Encounter for long-term current use of medication Expected: 12/11/2023, Expires: 03/11/2024 [facility] Comment on above: Expected: 12/11/2023, Expires: Start: 12-11-2023 End: 03-11-2024 Comprehensive metabolic 2000 panel - Serum or Plasma COMPREHENSIVE METABOLIC PANEL Lab Routine 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 Encounter for long-term current use of medication Expected: 12/11/2023, Expires: 03/11/2024 [facility] Comment on above: Expected: 12/11/2023, Expires: Start: 12-11-2023 End: 03-11-2024 Ferritin [Mass/volume] in Serum or Plasma FERRITIN Lab Routine History of Jordin-en-Y gastric bypass Iron deficiency Encounter for long-term current use of medication Expected: 12/11/2023, Expires: 03/11/2024 [facility] Comment on above: Expected: 12/11/2023, Expires: Start: 12-11-2023 End: 03-11-2024 Folate [Mass/volume] in Serum or Plasma FOLATE, SERUM Lab Routine History of Jordin-en-Y gastric bypass Encounter for long-term current use of medication Expected: 12/11/2023, Expires: 03/11/2024 [facility] Comment on above: Expected: 12/11/2023, Expires: Start: 12-11-2023 End: 03-11-2024 Hemoglobin A1c in Blood HEMOGLOBIN A1C Lab Routine 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 Encounter for long-term current use of medication Expected: 12/11/2023, Expires: 03/11/2024 [facility] Work Phone: Comment on above: Expected: 12/11/2023, Expires: Start: 12-11-2023 End: 03-11-2024 Iron and Iron binding capacity panel - Serum or Plasma IRON AND TIBC Lab Routine History of Jordin-en-Y gastric bypass Iron deficiency Encounter for long-term current use of medication Expected: 12/11/2023, Expires: 03/11/2024 [facility] Comment on above: Expected: 12/11/2023, Expires: Start: 12-11-2023 End: 03-11-2024 Lipid 1996 panel - Serum or Plasma LIPID PANEL BASIC Lab Routine Mixed hyperlipidemia History of Jordin-en-Y gastric bypass Encounter for long-term current use of medication Expected: 12/11/2023, Expires: 03/11/2024 [facility] Comment on above: Expected: 12/11/2023, Expires: Start: 12-11-2023 End: 03-11-2024 LIPID PANEL, NONFASTING LIPID PANEL, NONFASTING Lab Routine Mixed hyperlipidemia History of Jordin-en-Y gastric bypass Encounter for long-term current use of medication Expected: 12/11/2023, Expires: 03/11/2024 [facility] Comment on above: Expected: 12/11/2023, Expires: Start: 12-11-2023 End: 03-11-2024 Retinol [Mass/volume] in Serum or Plasma VITAMIN A/RETINOL Lab Routine History of Jordin-en-Y gastric bypass Encounter for long-term current use of medication Expected: 12/11/2023, Expires: 03/11/2024 [facility] Comment on above: Expected: 12/11/2023, Expires: Start: 12-11-2023 End: 03-11-2024 Zinc [Mass/volume] in Serum or Plasma ZINC BLD Lab Routine History of Jordin-en-Y gastric bypass Encounter for long-term current use of medication Expected: 12/11/2023, Expires: 03/11/2024 [facility] Comment on above: Expected: 12/11/2023, Expires: Start: 12-10-2023 End: 12-10-2023 Patient encounter procedure 12/10/2023 3:40 PM EDT Office Visit Internal Medicine [place] [address] [place] [address] Guillaume Dominguez MD [address] [place] [address] 6 month follow up [facility] Comment on above: 6 month follow up Start: 11-28-2023 ANNUAL PCP TEAM CHRONIC DISEASE VISIT ANNUAL PCP TEAM CHRONIC DISEASE VISIT [facility] Start: 11-28-2023 SHINGRIX VACCINE (2 of 3) SHINGRIX VACCINE (2 of 3) [facility] Comment on above: Postponed from 11/25/2012 (Declined at t his time) Start: 11-28-2023 Urine microalbumin profile [facility] Comment on above: Postponed from 10/10/2016 (Declined at t his time) Start: 11-25-2023 End: 11-25-2023 Follow-up encounter 11/25/2023 9:00 AM EDT [facility] Dermatology [address] [address] Radha Walters MD [address] [place] [address] 4 MONTH FOLLOW UP Dermatology Comment on above: 4 MONTH FOLLOW UP Start: 11-11-2023 End: 11-11-2023 Patient encounter procedure 11/11/2023 10:00 AM EDT Office Visit Dermatology [address] [address] Radha Walters MD [address] [place] [address] 4 MONTH FOLLOW UP Dermatology Comment on above: 4 MONTH FOLLOW UP Start: 11-04-2023 End: 11-04-2023 Nursing evaluation of patient and report 11/04/2023 1:30 PM EDT Nurse Visit [facility] [place] [address] [place] [id number] Nurse, [place] [address] [place] [id number] B-12 injection [facility] Comment on above: B-12 injection Start: 10-29-2023 End: 10-29-2023 Patient encounter procedure 10/29/2023 3:00 PM EDT Office Visit Endocrinology [place] [address] [place] [address] [place] [address] [place] [address] 6 month follow up Endocrinology [place] Comment on above: 6 month follow up Start: 10-28-2023 ANNUAL PCP TEAM CHRONIC DISEASE VISIT ANNUAL PCP TEAM CHRONIC DISEASE VISIT [facility] Start: 10-28-2023 BP CONTROLLED (<130/80) BP CONTROLLED (<130/80) [facility] Start: 10-11-2023 End: 10-11-2023 Patient encounter procedure 10/11/2023 11:20 AM EDT Office Visit Internal Medicine [place] [address] [facility], [place] [phone] Comfort Patterson APRN.[employer]FACE [employer]OSS [address] [place] [address] physical eval- for assisted living [facility] [place] Comment on above: physical eval- for assisted living Start: 10-04-2023 End: 10-04-2023 Nursing evaluation of patient and report 10/04/2023 1:30 PM EDT Nurse Visit Family Medicine [place] [address] [facility], [place] [id number] Nurse, [place] [address] [place] [address] B-12 injection [facility] [place] Comment on above: B-12 injection Start: 09-13-2023 Covid-19 Vaccine () Covid-19 Vaccine () [facility] Start: 08-17-2023 End: 11-16-2023 Hemoglobin A1c in Blood HGB A1C Lab Routine Expected: 08/17/2023 (Approximate), Expires: 11/16/2023 [facility] Work Phone: Comment on above: Expected: 08/17/2023 (Approximate), Expi res: 11/16/2023 Start: 08-17-2023 Hemoglobin A1c measurement HbA1C [facility] Start: 08-16-2023 End: 11-15-2023 25-hydroxyvitamin D3 [Mass/volume] in Serum or Plasma VITAMIN D 25 HYDROXY Lab Routine Vitamin D deficiency Expected: 08/16/2023, Expires: 11/15/2023 [facility] Work Phone: Comment on above: Expected: 08/16/2023, Expires: Start: 08-16-2023 ANNUAL PCP TEAM CHRONIC DISEASE VISIT ANNUAL PCP TEAM CHRONIC DISEASE VISIT [facility] Start: 08-16-2023 BP CONTROLLED (<130/80) BP CONTROLLED (<130/80) [facility] Start: 08-16-2023 End: 11-15-2023 CBC W Auto Differential panel - Blood CBC + DIFF Lab Routine Encounter for therapeutic drug monitoring Iron deficiency Expected: 08/16/2023, Expires: 11/15/2023 [facility] Work Phone: Comment on above: Expected: 08/16/2023, Expires: Start: 08-16-2023 End: 11-15-2023 Cobalamin (Vitamin B12) [Mass/volume] in Serum or Plasma VITAMIN B12 BLOOD Lab Routine Vitamin B12 deficiency Iron deficiency Expected: 08/16/2023, Expires: 11/15/2023 [facility] Work Phone: Comment on above: Expected: 08/16/2023, Expires: Start: 08-16-2023 End: 11-15-2023 Comprehensive metabolic 2000 panel - Serum or Plasma COMP METABOLIC PANEL Lab Routine Encounter for therapeutic drug monitoring Expected: 08/16/2023, Expires: 11/15/2023 [facility] Work Phone: Comment on above: Expected: 08/16/2023, Expires: 4 Start: 08-16-2023 End: 11-15-2023 Ferritin [Mass/volume] in Serum or Plasma FERRITIN BLD Lab Routine Iron deficiency Expected: 08/16/2023, Expires: 11/15/2023 [facility] Work Phone: Comment on above: Expected: 08/16/2023, Expires: Start: 08-16-2023 End: 11-15-2023 Iron and Iron binding capacity panel - Serum or Plasma IRON + TIBC Lab Routine Iron deficiency Expected: 08/16/2023, Expires: 11/15/2023 [facility] Work Phone: Comment on above: Expected: 08/16/2023, Expires: 4 Start: 08-16-2023 End: 11-15-2023 LIPID PANEL, NONFASTING LIPID PANEL, NONFASTING Lab Routine Screening, lipid Expected: 08/16/2023, Expires: 11/15/2023 [facility] Work Phone: Comment on above: Expected: 08/16/2023, Expires: 4 Start: 08-16-2023 End: 11-15-2023 Thyrotropin [Units/volume] in Serum or Plasma TSH BLD Lab Routine Screening for thyroid disorder Expected: 08/16/2023, Expires: 11/15/2023 [facility] Work Phone: Comment on above: Expected: 08/16/2023, Expires: Start: 07-07-2023 ANNUAL PCP TEAM CHRONIC DISEASE VISIT ANNUAL PCP TEAM CHRONIC DISEASE VISIT [facility] Start: 07-07-2023 BP CONTROLLED (<130/80) BP CONTROLLED (<130/80) [facility] Start: 07-02-2023 Hemoglobin A1c measurement HbA1C [facility] Start: 07-02-2023 Hemoglobin A1c/Hemoglobin.total in Blood HBA1C [facility] Start: 06-12-2023 [facility] Start: 06-11-2023 BP CONTROLLED (<130/80) BP CONTROLLED (<130/80) [facility] Start: 05-31-2023 Advance Directive Discussion Advance Directive Discussion [facility] Start: 05-31-2023 Behavioral Health Screening Behavioral Health Screening [facility] Start: 05-31-2023 Depression Assessment Depression Assessment [facility] Start: 05-14-2023 End: 08-13-2023 25-hydroxyvitamin D3 [Mass/volume] in Serum or Plasma VITAMIN D 25 HYDROXY Lab Routine Vitamin D deficiency Expected: 05/14/2023, Expires: 08/13/2023 [facility] Work Phone: Comment on above: Expected: 05/14/2023, Expires: 4 Start: 05-12-2023 ANNUAL PCP TEAM CHRONIC DISEASE VISIT ANNUAL PCP TEAM CHRONIC DISEASE VISIT [facility] Start: 05-12-2023 BP CONTROLLED (<130/80) BP CONTROLLED (<130/80) [facility] Start: 05-06-2023 BP CONTROLLED (<130/80) BP CONTROLLED (<130/80) [facility] Start: 04-30-2023 End: 06-30-2023 ALBUMIN/CREAT RATIO RND UR ALBUMIN/CREAT RATIO RND UR Lab Routine Type 2 diabetes mellitus with peripheral neuropathy (HCC) Expected: 04/30/2023, Expires: 06/30/2023 [facility] Work Phone: Comment on above: Expected: 04/30/2023, Expires: 4 Start: 04-30-2023 End: 06-30-2023 CBC W Auto Differential panel - Blood CBC + DIFF Lab Routine Chronic fatigue Encounter for therapeutic drug monitoring Expected: 04/30/2023, Expires: 06/30/2023 [facility] Work Phone: Comment on above: Expected: 04/30/2023, Expires: 4 Start: 04-30-2023 End: 06-30-2023 Comprehensive metabolic 2000 panel - Serum or Plasma COMP METABOLIC PANEL Lab Routine Chronic fatigue Encounter for therapeutic drug monitoring Expected: 04/30/2023, Expires: 06/30/2023 [facility] Work Phone: Comment on above: Expected: 04/30/2023, Expires: 4 Start: 04-30-2023 End: 06-30-2023 Ferritin [Mass/volume] in Serum or Plasma FERRITIN BLD Lab Routine Chronic fatigue Encounter for therapeutic drug monitoring Expected: 04/30/2023, Expires: 06/30/2023 [facility] Work Phone: Comment on above: Expected: 04/30/2023, Expires: 4 Start: 04-30-2023 End: 06-30-2023 Hemoglobin A1c in Blood HGB A1C Lab Routine Chronic fatigue Encounter for therapeutic drug monitoring Type 2 diabetes mellitus with peripheral neuropathy (HCC) Expected: 04/30/2023, Expires: 06/30/2023 [facility] Work Phone: Comment on above: Expected: 04/30/2023, Expires: 4 Start: 04-30-2023 End: 06-30-2023 Iron and Iron binding capacity panel - Serum or Plasma IRON + TIBC Lab Routine Chronic fatigue Encounter for therapeutic drug monitoring Expected: 04/30/2023, Expires: 06/30/2023 [facility] Work Phone: Comment on above: Expected: 04/30/2023, Expires: 4 Start: 04-30-2023 End: 06-30-2023 Lipid 1996 panel - Serum or Plasma LIPID PANEL BASIC Lab Routine Mixed hyperlipidemia Expected: 04/30/2023, Expires: 06/30/2023 [facility] Work Phone: Comment on above: Expected: 04/30/2023, Expires: 4 Start: 04-27-2023 ANNUAL PCP TEAM CHRONIC DISEASE VISIT ANNUAL PCP TEAM CHRONIC DISEASE VISIT [facility] Start: 02-10-2023 ANNUAL PCP TEAM CHRONIC DISEASE VISIT ANNUAL PCP TEAM CHRONIC DISEASE VISIT [facility] Start: 01-29-2023 Covid-19 Vaccine ( season) Covid-19 Vaccine ( season) [facility] Start: 01-29-2023 Influenza vaccination INFLUENZA (#1) [facility] Start: 01-16-2023 Hepatitis B screening URINE ALBUMIN:CREATININE RATIO [facility] Start: 12-08-2022 Hemoglobin A1c/Hemoglobin.total in Blood HBA1C [facility] Start: 10-25-2022 Hemoglobin A1c/Hemoglobin.total in Blood HBA1C [facility] Start: 10-03-2022 ANNUAL PCP TEAM CHRONIC DISEASE VISIT ANNUAL PCP TEAM CHRONIC DISEASE VISIT [facility] Start: 09-09-2022 End: 07-11-2023 XR ABDOMEN 1V SUPINE XR ABDOMEN 1V SUPINE Radiology Routine Kidney stone Expected: 09/09/2022, Expires: 07/11/2023 [facility] Work Phone: Comment on above: Expected: 09/09/2022, Expires: 4 Start: 08-25-2022 ANNUAL PCP TEAM CHRONIC DISEASE VISIT ANNUAL PCP TEAM CHRONIC DISEASE VISIT [facility] Start: 08-21-2022 Hepatitis B screening URINE ALBUMIN:CREATININE RATIO [facility] Start: 08-15-2022 End: 10-15-2022 25-hydroxyvitamin D3 [Mass/volume] in Serum or Plasma VITAMIN D 25 HYDROXY Lab Routine Vitamin D deficiency Expected: 08/15/2022, Expires: 10/15/2022 [facility] Work Phone: Comment on above: Expected: 08/15/2022, Expires: 3 Start: 08-15-2022 End: 10-15-2022 CBC panel - Blood by Automated count CBC Lab Routine Irregular heart rhythm Dietary iron deficiency without anemia Expected: 08/15/2022, Expires: 10/15/2022 [facility] Work Phone: Comment on above: Expected: 08/15/2022, Expires: 3 Start: 08-15-2022 End: 10-15-2022 Cobalamin (Vitamin B12) [Mass/volume] in Serum or Plasma VITAMIN B12 BLOOD Lab Routine B12 deficiency Other fatigue Expected: 08/15/2022, Expires: 10/15/2022 [facility] Work Phone: Comment on above: Expected: 08/15/2022, Expires: 3 Start: 08-15-2022 End: 10-15-2022 Comprehensive metabolic 2000 panel - Serum or Plasma COMP METABOLIC PANEL Lab Routine Irregular heart rhythm Expected: 08/15/2022, Expires: 10/15/2022 [facility] Work Phone: Comment on above: Expected: 08/15/2022, Expires: 3 Start: 08-15-2022 End: 10-15-2022 Ferritin [Mass/volume] in Serum or Plasma FERRITIN BLD Lab Routine Elevated ferritin Other fatigue Expected: 08/15/2022, Expires: 10/15/2022 [facility] Work Phone: Comment on above: Expected: 08/15/2022, Expires: 3 Start: 08-15-2022 End: 10-15-2022 Folate [Mass/volume] in Serum or Plasma FOLATE SERUM Lab Routine Other fatigue Expected: 08/15/2022, Expires: 10/15/2022 [facility] Work Phone: Comment on above: Expected: 08/15/2022, Expires: Start: 08-15-2022 End: 10-15-2022 Hemoglobin A1c in Blood HGB A1C Lab Routine Irregular heart rhythm Expected: 08/15/2022, Expires: 10/15/2022 [facility] Work Phone: Comment on above: Expected: 08/15/2022, Expires: Start: 08-15-2022 End: 10-15-2022 Iron and Iron binding capacity panel - Serum or Plasma IRON + TIBC Lab Routine Other fatigue Expected: 08/15/2022, Expires: 10/15/2022 [facility] Work Phone: Comment on above: Expected: 08/15/2022, Expires: Start: 08-15-2022 End: 10-15-2022 Magnesium [Mass/volume] in Serum or Plasma MAGNESIUM BLD Lab Routine Irregular heart rhythm Expected: 08/15/2022, Expires: 10/15/2022 [facility] Work Phone: Comment on above: Expected: 08/15/2022, Expires: 3 Start: 08-15-2022 End: 10-15-2022 Methylmalonate [Moles/volume] in Serum or Plasma METHYLMALONIC ACID Lab Routine B12 deficiency Expected: 08/15/2022, Expires: 10/15/2022 [facility] Work Phone: Comment on above: Expected: 08/15/2022, Expires: 3 Start: 08-15-2022 End: 10-15-2022 Thyrotropin [Units/volume] in Serum or Plasma TSH BLD Lab Routine Irregular heart rhythm Expected: 08/15/2022, Expires: 10/15/2022 [facility] Work Phone: Comment on above: Expected: 08/15/2022, Expires: 3 Start: 08-15-2022 End: 10-15-2022 Thyroxine (T4) free [Mass/volume] in Serum or Plasma T4 FREE/FREE THYROX Lab Routine Irregular heart rhythm Expected: 08/15/2022, Expires: 10/15/2022 [facility] Work Phone: Comment on above: Expected: 08/15/2022, Expires: 3 Start: 08-15-2022 End: 10-15-2022 Triiodothyronine (T3) Free [Mass/volume] in Serum or Plasma T3 FREE BLD Lab Routine Irregular heart rhythm Expected: 08/15/2022, Expires: 10/15/2022 [facility] Work Phone: Comment on above: Expected: 08/15/2022, Expires: 3 Start: 07-19-2022 Hemoglobin A1c/Hemoglobin.total in Blood HBA1C [facility] Start: 07-03-2022 COVID-19 VACCINE (5 - Pfizer series) COVID-19 VACCINE (5 - Pfizer series) [facility] Start: 06-18-2022 End: 08-18-2022 Bacteria identified in Urine by Culture [facility] Work Phone: Comment on above: Expected: 06/18/2022, Expires: 3 Start: 05-31-2022 ADVANCE DIRECTIVE DISCUSSION ADVANCE DIRECTIVE DISCUSSION [facility] Start: 05-31-2022 DEPRESSION ASSESSMENT DEPRESSION ASSESSMENT [facility] Start: 04-27-2022 End: 06-27-2022 Cobalamin (Vitamin B12) [Mass/volume] in Serum or Plasma [facility] Work Phone: Comment on above: Expected: 04/27/2022, Expires: 3 Start: 04-27-2022 End: 06-27-2022 Comprehensive metabolic 2000 panel - Serum or Plasma [facility] Work Phone: Comment on above: Expected: 04/27/2022, Expires: 3 Start: 04-27-2022 End: 06-27-2022 Ferritin [Mass/volume] in Serum or Plasma [facility] Work Phone: Comment on above: Expected: 04/27/2022, Expires: 3 Start: 04-27-2022 End: 06-27-2022 Folate [Mass/volume] in Serum or Plasma [facility] Work Phone: Comment on above: Expected: 04/27/2022, Expires: 3 Start: 04-27-2022 End: 06-27-2022 Hemoglobin A1c in Blood [facility] Work Phone: Comment on above: Expected: 04/27/2022, Expires: 3 Start: 04-27-2022 End: 06-27-2022 Iron and Iron binding capacity panel - Serum or Plasma [facility] Work Phone: Comment on above: Expected: 04/27/2022, Expires: 3 Start: 03-30-2022 End: 05-30-2022 CBC W Auto Differential panel - Blood CBC + DIFF Lab Routine Iron deficiency Expected: 03/30/2022 (Approximate), Expires: 05/30/2022 [facility] Work Phone: Comment on above: Expected: 03/30/2022 (Approximate), Expi res: 05/30/2022 Start: 03-30-2022 End: 05-30-2022 Ferritin [Mass/volume] in Serum or Plasma FERRITIN BLD Lab Routine Iron deficiency Expected: 03/30/2022 (Approximate), Expires: 05/30/2022 [facility] Work Phone: Comment on above: Expected: 03/30/2022 (Approximate), Expi res: 05/30/2022 Start: 03-30-2022 End: 05-30-2022 Iron and Iron binding capacity panel - Serum or Plasma IRON + TIBC Lab Routine Iron deficiency Expected: 03/30/2022 (Approximate), Expires: 05/30/2022 [facility] Work Phone: Comment on above: Expected: 03/30/2022 (Approximate), Expi res: 05/30/2022 Start: 02-21-2022 Hemoglobin A1c/Hemoglobin.total in Blood HBA1C [facility] Start: 02-21-2022 Simple repair scalp/neck/ax/genit/trunk 2.5cm/< RPR S/N/AX/GEN/TRNK 2.5CM/< [facility] Work Phone: Start: 02-10-2022 Adult depression screening assessment DEPRESSION SCREENING [facility] Start: 02-10-2022 ANNUAL PCP TEAM CHRONIC DISEASE VISIT ANNUAL PCP TEAM CHRONIC DISEASE VISIT [facility] Start: 01-29-2022 Influenza vaccination INFLUENZA (#1) [facility] Start: 01-19-2022 End: 03-21-2022 Thyrotropin [Units/volume] in Serum or Plasma TSH BLD Lab Routine Fatigue, unspecified type Expected: 01/19/2022, Expires: 03/21/2022 [facility] Work Phone: Comment on above: Expected: 01/19/2022, Expires: 2 Start: 01-05-2022 End: 03-07-2022 Ferritin [Mass/volume] in Serum or Plasma FERRITIN BLD Lab Routine Elevated ferritin Expected: 01/05/2022, Expires: 03/07/2022 [facility] Work Phone: Comment on above: Expected: 01/05/2022, Expires: 2 Start: 01-05-2022 End: 03-07-2022 Iron and Iron binding capacity panel - Serum or Plasma IRON + TIBC Lab Routine Elevated ferritin Expected: 01/05/2022, Expires: 03/07/2022 [facility] Work Phone: Comment on above: Expected: 01/05/2022, Expires: 2 Start: 10-28-2021 End: 10-06-2022 CBC W Auto Differential panel - Blood CBC + DIFF Lab Routine Fatigue, unspecified type Elevated ferritin Expected: 10/28/2021 (Approximate), Expires: 10/06/2022 [facility] Work Phone: Comment on above: Expected: 10/28/2021 (Approximate), Expi res: 10/06/2022 Start: 10-28-2021 End: 10-06-2022 Comprehensive metabolic 2000 panel - Serum or Plasma COMP METABOLIC PANEL Lab Routine Fatigue, unspecified type Elevated ferritin Expected: 10/28/2021 (Approximate), Expires: 10/06/2022 [facility] Work Phone: Comment on above: Expected: 10/28/2021 (Approximate), Expi res: 10/06/2022 Start: 10-28-2021 End: 10-06-2022 Echocardiography ECHO Cardiology Routine Shortness of breath on exertion Irregular heart beat Fatigue, unspecified type Expected: 10/28/2021 (Approximate), Expires: 10/06/2022 [facility] Work Phone: Comment on above: Expected: 10/28/2021 (Approximate), Expi res: 10/06/2022 Start: 10-28-2021 End: 10-06-2022 FERRITIN BLD FERRITIN BLD Lab Routine Fatigue, unspecified type Elevated ferritin Expected: 10/28/2021 (Approximate), Expires: 10/06/2022 [facility] Work Phone: Comment on above: Expected: 10/28/2021 (Approximate), Expi res: 10/06/2022 Start: 10-10-2021 Hepatitis B surface antibody level LDL CHOLESTEROL [facility] Start: 08-12-2021 COVID-19 VACCINE (4 - Booster for Pfizer series) COVID-19 VACCINE (4 - Booster for Pfizer series) [facility] Start: 07-29-2021 Glaucoma screening Dilated Retinal Exam [facility] Start: 07-29-2021 Hepatitis C antibody, confirmatory test DILATED RETINAL EXAM [facility] Start: 06-09-2021 COVID-19 VACCINE (4 - Booster for Pfizer series) COVID-19 VACCINE (4 - Booster for Pfizer series) [facility] Start: 05-31-2021 ADVANCE DIRECTIVE DISCUSSION ADVANCE DIRECTIVE DISCUSSION [facility] Start: 05-31-2021 DEPRESSION ASSESSMENT DEPRESSION ASSESSMENT [facility] Start: 2017 RSV Immunization for Adults (1 - 1-dose 75+ series) RSV Immunization for Adults (1 - 1-dose 75+ series) [facility] Start: 2017 RSV Vaccine (1 - 1-dose 75+ series) RSV Vaccine (1 - 1-dose 75+ series) [facility] Start: 10-10-2016 DTaP/Tdap/Td Vaccines (1 - Tdap) DTaP/Tdap/Td Vaccines (1 - Tdap) [facility] Start: 10-10-2016 Urine microalbumin profile [facility] Start: 09-23-2016 3 comp foot exam completed DIABETIC FOOT EXAM [facility] Start: 09-23-2016 Diabetic foot examination Diabetic Foot Exam [facility] Start: 11-25-2012 SHINGRIX VACCINE (2 of 3) SHINGRIX VACCINE (2 of 3) [facility] Start: 11-25-2012 Zoster Vaccines (2 of 3) Zoster Vaccines (2 of 3) [facility] Start: 2002 Hepatitis B Vaccine (1 of 3 - Risk 3-dose series) Hepatitis B Vaccine (1 of 3 - Risk 3-dose series) [facility] Start: 2002 RSV Vaccine (1 - 1-dose 60+ series) RSV Vaccine (1 - 1-dose 60+ series) [facility] Start: [birth year]-1960 BP CONTROLLED (<130/80) BP CONTROLLED (<130/80) [facility] Start: 02-08-1960 Depression Screening Depression Screening [facility] Start: 1954 Depression Screening Depression Screening [facility] Start: 02-08-1946 PNEUMOCOCCAL: 65+ (1 - PCV) PNEUMOCOCCAL: 65+ (1 - PCV) [facility] Bacteria identified in Urine by Culture URINE CULTURE Microbiology Routine Urinary frequency Ordered: 12/17/2021 [facility] Work Phone: Comment on above: Ordered: 12/17/2021 Bacteria identified in Urine by Culture URINE CULTURE Microbiology Routine UTI symptoms Ordered: 01/10/2024 [facility] Comment on above: Ordered: 01/10/2024 Bilirubin measuremen t, urine [facility] Work Phone: End: 08-31-2025 CT Head WO contrast CT BRAIN WO IVCON Radiology STAT Intracranial hemorrhage (HCC) 1 Occurrences starting 08/01/2024 until 08/31/2025 [facility] Work Phone: Comment on above: 1 Occurrences starting 08/01/2024 until 08/31/2025 Dstrj neurolytic age nt other peripheral nerve NRV DESTR RFA, CHEM OTHER Procedures Routine Chronic left SI joint pain Ordered: 03/11/2022 [facility] Work Phone: Comment on above: Ordered: 03/11/2022 End: 10-03-2022 ECG COMPLETE ECG COMPLETE ECG Routine Irregular heart beat 1 Occurrences starting 10/03/2021 until 10/03/2022 [facility] Work Phone: Comment on above: 1 Occurrences starting 10/03/2021 until 10/03/2022 End: 11-02-2022 ECG COMPLETE ECG COMPLETE ECG Routine Dyspnea on exertion 1 Occurrences starting 11/02/2021 until 11/02/2022 [facility] Work Phone: Comment on above: 1 Occurrences starting 11/02/2021 until 11/02/2022 End: 04-27-2023 ECG COMPLETE ECG COMPLETE ECG Routine Irregular heart rhythm 1 Occurrences starting 04/27/2022 until 04/27/2023 [facility] Work Phone: Comment on above: 1 Occurrences starting 04/27/2022 until 04/27/2023 End: 08-16-2023 ECG COMPLETE ECG COMPLETE ECG Routine Irregular heart rhythm FIELD (dyspnea on exertion) 1 Occurrences starting 08/15/2022 until 08/16/2023 [facility] Work Phone: Comment on above: 1 Occurrences starting 08/15/2022 until 08/16/2023 ECG COMPLETE ECG COMPLETE ECG 01/11/2023 8:40 AM EDT [facility] End: 01-12-2024 Echocardiography ECHO Cardiology Routine Irregular heart rhythm FIELD (dyspnea on exertion) Premature atrial complexes PAC (premature atrial contraction) Mixed hyperlipidemia Carotid artery stenosis without cerebral infarction, bilateral Type 2 diabetes mellitus with peripheral neuropathy (HCC) Atypical chest pain 1 Occurrences starting 01/11/2023 until 01/12/2024 [facility] Work Phone: Comment on above: 1 Occurrences starting 01/11/2023 until 01/12/2024 Glucose [Mass/volume ] in Serum or Plasma GLUCOSE, BLOOD (POC) Lab Routine Glucosuria Ordered: 12/17/2021 [facility] Work Phone: Comment on above: Ordered: 12/17/2021 Hemoglobin [Presence ] in Urine [facility] Work Phone: End: 05-27-2023 LUNG VOLUMES LUNG VOLUMES PFT Routine FIELD (dyspnea on exertion) Chronic cough 1 Occurrences starting 04/27/2022 until 05/27/2023 [facility] Work Phone: Comment on above: 1 Occurrences starting 04/27/2022 until 05/27/2023 LUNG VOLUMES LUNG VOLUMES PFT Routine FIELD (dyspnea on exertion) Chronic cough 04/28/2022 9:46 AM EST [facility] Work Phone: End: 08-05-2024 ARTIS DIAGNOSTIC RIGHT ARTIS DIAGNOSTIC RIGHT Radiology Routine Abnormal mammogram 1 Occurrences starting 07/07/2023 until 08/05/2024 [facility] Work Phone: Comment on above: 1 Occurrences starting 07/07/2023 until 08/05/2024 End: 06-12-2024 ARTIS SCREENING ARTIS SCREENING Radiology Routine Breast cancer screening by mammogram 1 Occurrences starting 05/14/2023 until 06/12/2024 [facility] Work Phone: Comment on above: 1 Occurrences starting 05/14/2023 until 06/12/2024 Measurement of keton es in urine using dipstick [facility] Work Phone: Microorganism identi fied in Unspecified specimen by Culture FUNGAL CULT + SMEAR Microbiology Routine Lichen sclerosus et atrophicus Pruritus 03/04/2022 3:36 PM EDT [facility] Work Phone: Microscopic urinalysis [facility] Work Phone: Njx anes&/strd w/img tfrml edrl lmbr/sac 1 lvl INJ TRANSFORAMINAL EPID ANES/STER LS SINGL Procedures Routine Spinal stenosis of lumbar region, unspecified whether neurogenic claudication present Radiculopathy, lumbar region 1 Occurrences starting 09/14/2022 [facility] Work Phone: Comment on above: 1 Occurrences starting 09/14/2022 Njx anes&/strd w/img tfrml edrl lmbr/sac 1 lvl INJ TRANSFORAMINAL EPID ANES/STER LS SINGL Procedures Routine Lumbar spondylosis Radiculopathy, lumbar region Ordered: 03/10/2024 [facility] Work Phone: Comment on above: Ordered: 03/10/2024 End: 02-10-2024 NM CARDIAC PERF STRESS/PHARM NM CARDIAC PERF STRESS/PHARM Radiology Routine Irregular heart rhythm FIELD (dyspnea on exertion) Premature atrial complexes PAC (premature atrial contraction) Mixed hyperlipidemia Carotid artery stenosis without cerebral infarction, bilateral Type 2 diabetes mellitus with peripheral neuropathy (HCC) Atypical chest pain 1 Occurrences starting 01/11/2023 until 02/10/2024 [facility] Work Phone: Comment on above: 1 Occurrences starting 01/11/2023 until 02/10/2024 OUTSIDE VENDOR CARDI AC OUTPATIENT EXTENDED RHYTHM RECORDING (WITHOUT TELEMETRY) OUTSIDE VENDOR CARDIAC OUTPATIENT EXTENDED RHYTHM RECORDING (WITHOUT TELEMETRY) Holter Routine Dyspnea on exertion Ordered: 11/03/2021 [facility] Work Phone: Comment on above: Ordered: 11/03/2021 Patient Education [facility] Work Phone: Patient referral [facility] Work Phone: pH of Urine [facility] Work Phone: PT PLAN OF CARE CERTIFICATION PT PLAN OF CARE CERTIFICATION Procedures Routine Spinal stenosis of lumbar region, unspecified whether neurogenic claudication present Lumbar spondylosis Radiculopathy, lumbar region Spondylolisthesis of lumbar region Ordered: 08/19/2022 [facility] Work Phone: Comment on above: Ordered: 08/19/2022 PT PLAN OF CARE CERTIFICATION PT PLAN OF CARE CERTIFICATION Procedures Routine Spinal stenosis of lumbar region, unspecified whether neurogenic claudication present Lumbar spondylosis Spondylolisthesis of lumbar region Radiculopathy, lumbar region Ordered: 11/06/2022 [facility] Comment on above: Ordered: 11/06/2022 Specific gravity of Urine [facility] Work Phone: End: 05-27-2023 SPIROMETRY WITH DILATOR IF OBSTRUCTED SPIROMETRY WITH DILATOR IF OBSTRUCTED PFT Routine FIELD (dyspnea on exertion) Chronic cough 1 Occurrences starting 04/27/2022 until 05/27/2023 [facility] Work Phone: Comment on above: 1 Occurrences starting 04/27/2022 until 05/27/2023 SPIROMETRY WITH DILA TOR IF OBSTRUCTED SPIROMETRY WITH DILATOR IF OBSTRUCTED PFT Routine FIELD (dyspnea on exertion) Chronic cough 04/28/2022 9:46 AM EST [facility] Work Phone: UA DIP B/O UA DIP B/O Lab R outine UTI symptoms Ordered: 01/10/2024 [facility] Work Phone: Comment on above: Ordered: 01/10/2024 Urinalysis, blood, qualitative [facility] Work Phone: Urine dipstick for glucose [facility] Work Phone: Urine dipstick for leukocyte esterase [facility] Work Phone: Urine dipstick for nitrite [facility] Work Phone: Urine dipstick for protein [facility] Work Phone: Urine examination [facility] Work Phone: Urine microscopy: epithelial cells [facility] Work Phone: Urine Microscopy: wh ite cells [facility] Work Phone: Urobilinogen [Presen ce] in Urine [facility] Work Phone: End: 08-05-2024 US BREAST LTD RIGHT US BREAST LTD RIGHT Radiology Routine Abnormal mammogram 1 Occurrences starting 07/07/2023 until 08/05/2024 [facility] Work Phone: Comment on above: 1 Occurrences starting 07/07/2023 until 08/05/2024 End: 08-12-2024 US Carotid arteries - bilateral US CAROTID ARTERIES [facility] Vascular Lab Routine Carotid stenosis, right 1 Occurrences starting 08/13/2023 until 08/12/2024 [facility] Work Phone: Comment on above: 1 Occurrences starting 08/13/2023 until 08/12/2024 End: 08-16-2023 US CAROTID ARTERIES [facility] US CAROTID ARTERIES [facility] Vascular Lab Routine Bilateral carotid artery stenosis 1 Occurrences starting 08/15/2022 until 08/16/2023 [facility] Work Phone: Comment on above: 1 Occurrences starting 08/15/2022 until 08/16/2023 End: 06-20-2023 XR DIGIT GENERAL 3V FRONTAL/LAT/OBL RIGHT XR DIGIT GENERAL 3V FRONTAL/LAT/OBL RIGHT Radiology Routine Finger injury, right, initial encounter 1 Occurrences starting 05/21/2022 until 06/20/2023 [facility] Work Phone: Comment on above: 1 Occurrences starting 05/21/2022 until 06/20/2023 End: 01-22-2025 XR Knee - right AP and Lateral XR KNEE LIMITED 2V AP/LAT RIGHT Radiology Routine Acute pain of right knee 1 Occurrences starting 12/24/2023 until 01/22/2025 [facility] Work Phone: Comment on above: 1 Occurrences starting 12/24/2023 until 01/22/2025 XR Knee - right AP a nd Lateral XR KNEE LIMITED 2V AP/LAT RIGHT Radiology Routine Acute pain of right knee 12/27/2023 1:54 PM EDT [facility] Work Phone: [facility] Immunizations Immunization Date Immunization Notes Care Provider [facility] 03-29-2024 influenza, seasonal, injectable Moraima Montelongo MD Work Phone: [facility] 03-29-2024 influenza virus vacc ine, unspecified formulation Radha Walters MD Work Phone: [facility] 05-14-2023 COVID-19 vaccine, ag e 12+ yr, season (PFIZER-BIONTECH) Guillaume Dominguez MD Work Phone: [facility] 02-02-2023 influenza (HD-IIV4) vaccine, age 65+ yr, high dose, quadrivalent, PF (FLUZONE HIGH-DOSE) Josefa Caputo APRN.TRAINING AND DEVELOPMENT REP Work Phone: [facility] Work Phone: 02-02-2023 influenza virus vacc ine, unspecified formulation Guillaume Dominguez MD Work Phone: [facility] 03-02-2022 COVID-19 booster vaccine, age 12+ yr, bivalent (PFIZER-BIONTECH) Mi Nurse Work Phone: [facility] Work Phone: 02-10-2022 influenza, high-dose , quadrivalent vaccine (FLUZONE HIGH DOSE QUADRIVALENT) Nc Nurse Work Phone: [facility] Work Phone: 04-14-2021 COVID-19 vaccine, ag e 12+ yr (PFIZER-BIONTECH - PURPLE TOP) Curtis Nassar MD Work Phone: [facility] Work Phone: 03-03-2021 influenza, high-dose , quadrivalent vaccine (FLUZONE HIGH DOSE QUADRIVALENT) Curtis Nassar MD Work Phone: [facility] Work Phone: 08-01-2020 COVID-19 vaccine, ag e 12+ yr (PFIZER-BIONTECH - PURPLE TOP) Curtis Nassar MD Work Phone: [facility] Work Phone: 07-11-2020 COVID-19 vaccine, ag e 12+ yr (PFIZER-BIONTECH - PURPLE TOP) Curtis Nassar MD Work Phone: [facility] Work Phone: 03-07-2020 influenza, high-dose , quadrivalent vaccine (FLUZONE HIGH DOSE QUADRIVALENT) Curtis Nassar MD Work Phone: [facility] Work Phone: 02-25-2019 influenza, high dose seasonal, preservative-free Curtis Nassar MD Work Phone: [facility] 03-01-2018 influenza, high dose seasonal, preservative-free Curtis Nassar MD Work Phone: [facility] Work Phone: 03-03-2017 influenza, high dose seasonal, preservative-free Curtis Nassar MD Work Phone: [facility] 10-09-2016 tetanus and diphther ia toxoids, adsorbed, preservative free, for adult use (5 Lf of tetanus toxoid and 2 Lf of diphtheria toxoid) Curtis Nassar MD Work Phone: [facility] Work Phone: 09-01-2016 pneumococcal conjuga te vaccine, 13 valent Curtis Nassar MD Work Phone: [facility] 04-08-2016 influenza, high dose seasonal, preservative-free Curtis Nassar MD Work Phone: [facility] Work Phone: 04-09-2015 influenza, high dose seasonal, preservative-free Curtis Nassar MD Work Phone: [facility] 03-16-2013 Influenza virus vaccine [facility] 01-25-2013 pneumococcal polysaccharide vaccine, 23 valent Curtis Nassar MD Work Phone: [facility] 09-30-2012 zoster vaccine, live Curtis chapman MD Work Phone: [facility] Work Phone: 06-04-2005 influenza virus vacc ine, unspecified formulation Curtis Nassar MD Work Phone: [facility] Work Phone: Payers Date Payer Category Payer Self-pay [id number] 2022 Medicare O [facility]A MEDICARE [id number] 2017 Medicare [id number] 2017 Medicare HUMANA MEDICARE HUMANA GOLD PLUS [id number] 2017-Present [phone] [address] [address] [place] [address] HMO [id number] 2017 Medicare (Managed Care) HUMANA G OLD PLUS [id number] 2017 Private Health Insurance [id number] Unknown [id number] Unknown [id number] .[id number] Unknown [id number] .[id number] Unknown [id number] .[id number] Unknown [id number] .2.462 Unknown [id number] .2.462 Unknown [id number] .2.462 Unknown [id number] .2.462 Unknown [id number] .2.462 Unknown [id number] .2.462 Unknown [id number] [id number] .2.462 Unknown [id number] .2.462 Unknown [id number] .2.462 Unknown [id number] .2.462 Unknown [id number] .2.462 Unknown [id number] .2.462 Social History Date Type Detail Facility Start: 11-25-2010 End: 05-05-2024 Tobacco smoking status NHIS Never smoked tobacco [facility] Start: 08-22-2021 End: 08-03-2024 Alcohol intake Current non-drinker of alcohol (finding) [facility] Start: 1940 Sex Assigned At Not on file [facility] [place] Start: 08-11-2021 End: 04-07-2022 Exposure to SARS-CoV-2 (event) Not sure [facility] Work Phone: Start: 09-28-2021 End: 10-08-2021 Exposure to SARS-CoV-2 (event) Unable to assess [facility] Work Phone: Start: 11-25-2010 Tobacco use and exposure Smokeless tobacco non-user [facility] Work Phone: Start: 02-16-2022 End: 06-12-2023 Tobacco smoking status NHIS Unknown if ever smoked [facility] Start: 08-27-2020 None [facility] Start: 08-27-2020 Spouse/ Signif icant Other [facility] Start: 02-16-2022 Non-smoker [facility] Start: 1940 Sex Assigned At Female C [facility] Start: 10-05-2022 End: 11-10-2022 History of Social function [facility] Work Phone: Start: 10-05-2022 End: 11-10-2022 Tobacco use panel [facility] Work Phone: Adult Depression Screening Assessment 6 [facility] Work Phone: (I/We) worried wheth er (my/our) food would run out before (I/we) got money to buy more. Never true [facility] In the past 12 month s, was there a time when you were not able to pay the mortgage or rent on time? No [facility] Start: 07-31-2024 End: 09-01-2024 Sex Female (finding) [facility] Medical Equipment Procedure Code Equipment Code Equipment Origin al Text Equipment Identifier Dates ORIF, hip, using Gamma nail ([id number]) Orthopaedic bone screw, non-bioabsorbable, sterile [id number] FDA Start: 01-11-2024 ORIF, hip, using Gamma nail ([id number]) Orthopaedic bone screw, non-bioabsorbable, sterile [id number] FDA Start: 01-11-2024 ORIF, hip, using Gamma nail ([id number]) Femur nail, sterile [id number] FDA Start: 01-11-2024 [id number] Start: 11-09-2016 Comment on above: ONE TOUCH ULTRA [address] STRIPS TESTING 2 TIMES DAILY INSULIN NO DX E11.65 [id number], [id number], [id number], [id number], [id number], [id number] Start: 10-22-2020 End: 05-07-2024 Comment on above: Check sugars 3 times daily use to check sugars twice a day 1 Strip three times daily. Use as instructed DX: E11.42 Test blood sugar(s) 3 times daily. Dx: Other DM Code E11.42 Insulin: No ONE TOUCH ULTRA 2 TEST STRIPS TESTING 2 TIMES DAILY INSULIN NO DX E11.65 [id number] Start: 11-09-2016 End: 05-07-[address] us Bovine Collagen Matrix 3x3in Soft Tissue Patch - [id number] Start: 05-06-[address] us Bovine Collagen Matrix 3x3in Soft Tissue Patch - [id number] Start: 05-06-2024 Pangea Distal Fe mur Plate Left 280mm [id number] Start: 05-07-2024 Level One Neuro Screw Onedrive Drill Free 1.5 X 4 Mm Ti-6al-4v [id number] Ea - [id number] Start: 05-06-2024 Comment on above: Description: Entered from worksheet. Screws are needed to attach the plates to the skull. L1 Neuro [facility] Cov Ultraone Contour W/Tab Scrw 6 Hl 18mm D T0.35mm Ti - [id number] Start: 05-06-2024 Lvl 1 Neuro Plt Ultraone Str W/Tab Scrw 4 Hole 22mm T0.35mm Ti-6al-4v 1ea - [id number] Start: 05-06-2024 Lvl 1 Neuro Plt Ultraone Str W/Tab Scrw 2 Hole 17mm T0.35mm Ti-6al-4v 1ea - [id number] Start: 05-06-2024 Screw Bone 3.5mm 36mm Axsos 3 Titanium Cortex Self Tap Lock Nonsterile - [id number] Start: 05-07-2024 Pangea Locking S crew 5mm X 65mm [id number] Start: 05-07-2024 Locking Screw, 5 .0mm / T20 / L75mm [id number] Start: 05-07-2024 Locking Screw, 5 .0mm / T20 / L70mm [id number] Start: 05-07-2024 Screw Bone 4.5mm 42mm Axsos 3 Titanium Cortex Self Tap Lock Nonsterile - [id number] Start: 05-07-2024 Locking Screw, 5 .0mm / T20 / L60mm [id number] Start: 05-07-2024 Locking Screw, 5 .0mm / T20 / L38mm [id number] Start: 05-07-2024 Screw Bone 3.5mm 32mm Titanium Cortical Lock Nonsterile Axsos 3 - [id number] Start: 05-07-2024 Screw Bone 3.5mm 34mm Titanium Cortical Nonsterile Axsos 3 - [id number] Start: 05-07-2024 Agent Avitene Collagen Hemostatic Microfibrillar Flour Sterile Latex Free 1 - [id number] Start: 05-06-2024 Functional Status Date Assessment Result Facility 03-25-2019 Are you deaf, or do you have serious difficulty hearing No 03/25/2019 11:46 AM Lety Galloway RN [facility] 03-25-2019 Are you blind, or do you have serious difficulty seeing, even when wearing glasses No 03/25/2019 11:46 AM Lety Galloway, ISMAEL [facility] 03-25-2019 Do you have serious difficulty walking or climbing stairs No 03/25/2019 11:46 AM Lety Galloway RN [facility] 03-25-2019 Do you have difficul ty dressing or bathing No 03/25/2019 11:46 AM Lety Galloway, ISMAEL [facility] 03-25-2019 Because of a physica l, mental, or emotional condition, do you have difficulty doing errands alone such as visiting a physician's office or shopping No 03/25/2019 11:46 AM Lety Galloway RN [facility] Mental Status Date Assessment Result Facility 06-12-2023 Cognitive function Level Of Cons ciousness Awake;Alert;Appropriate;Fol lows Commands [facility] Work Phone: 02-16-2022 Cognitive function Voice/Name [facility] Work Phone: 03-25-2019 Because of a physica l, mental, or emotional condition, do you have serious difficulty concentrating, remembering, or making decisions No 03/25/2019 11:46 AM Lety Galloway RN No [facility] Clinical Notes 01-05-2019 to 12-25-2024 Telephone [...] lesions. Bad situation., Daughter needs an alternative [phone] [facility] 12-25-2024 Miscellaneous Notes Diflucan not worth it, patient already taking. Aquafor--was told to never to use an ointment, so did not use it. Using cornstarch to keep dry as best as possible, Patient is bedridden and cannot come in for an appointment. She has open lesions. Bad situation., Daughter needs an alternative [phone] Message left for patient's daughter, Hardy, asking how patient is doing. documented in this encounter [facility] 12-25-2024 Telephone encounter Note Message left for patient's daughter, Hardy, asking how patient is doing. [facility] 09-18-2024 History of Present illness Narrative [...] 2024 1:13 PM documented in this encounter [facility] 08-17-2024 History of Present illness Narrative POPULATION HEALTH NAVIGATION OUTREACH Action/FYI Patient to schedule A1C, AWV, KED, DIABETIC EYE EXAM Reason for Outreach Care Gap/HCC or Scheduling Wellness Visits Care Gaps due: Medicare Annual Wellness Visit Diabetic Eye Exam HBA1C KED Patient Contacted: Unable or unnecessary to reach patient: Elastra message sent HCC related Navigation Signature: Natalya Byrd August 17, 2024 1:28 PM documented in this encounter [facility] 08-16-2024 Telephone encounter Note Spoke with patient's daughter Lashaun and notified her of the Mounjaro dose change. Attempted to fax updated RX to assisted at [phone] but it did not go through. Will try again later. Geno Moise RN [facility] 08-16-2024 Miscellaneous Notes Spoke with patient's daughter Lashaun and notified her of the Mounjaro dose change. Attempted to fax updated RX to assisted at [phone] but it did not go through. Will [...] at this time. 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 She reports the nurse has reported to her that patients blood sugars have been low- typically in 70-90 range, highest one in the past month and 1/2 was 140. Patient is not eating as much as she was before- food is more regulated than it was in assisted living. Patient is also losing more weight than they had wanted. Nurse at halfway is requesting review- possibly lower dose of mounjaro. Lashaun reports she picks up this medication and takes it to the assisted. She uses [facility]- phone number [phone]. This nurse requested a log of recent blood sugars to be faxed to us from assisted. halfway requests a new order be faxed to [facility]- fax number to be provided via Identify message. Patients daughter Lashaun calling in asking for a call back to discuss lowering the dosage of patients medication. Her food has decreased and her sugar reading are lower and asking to lower tirzepatide (MOUNJARO) 5 mg/0.5 mL pen injector Please call Lashaun back [phone] Thank you Velvet SHORT August 09, 2024 11:59 AM documented in this encounter [facility] 08-16-2024 Telephone encounter Note Please call to let the Lashaun know that it is reasonable to reduce Mounjaro for now. I will send a prescription to her pharmacy for 2.5mg weekly. Once the appetite improves, she will likely need to resume 5mg dose. Thank you- Sasha Caldwell APRN.TRAINING AND DEVELOPMENT REP [facility] 08-15-2024 Telephone encounter Note Images from the original note were not included. [facility] 08-10-2024 Telephone encounter Note This nurse reached out to Lashaun- She reports patient had a fall and hit her head- had a craniotomy- broke her femur- not walking at this time. Patient is now in halfway for retirement. She reports the nurse has reported to her that patients blood sugars have been low- typically in 70-90 range, highest one in the past month and 1/2 was 140. Patient is not eating as much as she was before- food is more regulated than it was in assisted living. Patient is also losing more weight than they had wanted. Nurse at halfway is requesting review- possibly lower dose of mounjaro. Lashaun reports she picks up this medication and takes it to the assisted. She uses [facility] pharmacy- phone number [phone]. This nurse requested a log of recent blood sugars to be faxed to us from assisted. halfway requests a new order be faxed to [facility]- fax number to be provided via Identify message. T [facility] 08-09-2024 Telephone encounter Note Patients daughter Lashaun calling in asking for a call back to discuss lowering the dosage of patients medication. Her food has decreased and her sugar reading are lower and asking to lower tirzepatide (MOUNJARO) 5 mg/0.5 mL pen injector Please call Lashaun back [phone] Thank you Velvet SHORT August 09, 2024 11:59 AM [facility] 08-03-2024 History of Present illness Narrative NEUROSURGERY POST-OP NOTE Tika Jones MD Date of visit: August 03, 2024 Patient Name: Ms.Jacqueline Kayleigh Davenport Date of : 1940 Current Age: [age] year old Sex: female MRN/E# [id number] Last Office Visit: 08/01/2024 CLINICAL SUMMARY: KPS: [...] II, previous PE, on Eliquis presented to [facility] on 05/06/24 as a trauma from [facility] with a right acute subdural hematoma with mass effect following a fall at an assisted living facility. CT scan of the brain completed at [facility] showed worsening SDH with 7mm right [...] her own. She is currently residing at [facility]. She presents today with her daughter( [...] once every month. To be administered at [facility] by nurse 1 mL 12 oxybutynin [...] some time. She was ultimately discharged to residential facility. Of note the patient has baseline mild dementia. The daughter states that when she got to the residential facility in early May she was back to close to her baseline mentation however over the last few weeks she is taken a significant decline from a mentation cognitive perspective. Of note, she has had recurrent UTIs which I think may be playing a factor. Her CT scan that was done yesterday shows complete resolution of her right subdural hematoma. I did group therapy counselor her that the recovery of traumatic [...] plan. Tika Jones MD Department of Neurosurgery [facility] This note was partially generated using Taodyne voice recognition system, and there may be some incorrect words, spellings, and punctuation that were not noted in checking the note before saving. documented in this encounter [facility] 08-03-2024 Note [facility] 08-01-2024 Telephone encounter Note Vidhi from [facility] called [phone] called to inform that the needed the prior authorization number for patients CT scan. Provided referral # and authorization # as well. Notified Dr. Jones and primary nurse Sarika. Monika Fried RN [facility] 08-01-2024 Miscellaneous Notes Vidhi from [facility] called [phone] called to inform that the needed the prior authorization number for patients CT scan. Provided referral # and authorization # as well. Notified Dr. Jones and primary nurse Sarika. Monika Fried RN documented in this encounter [facility] 07-04-2024 Telephone encounter Note I called Vidhi and let her know that per MTM patient is now WBAT. Glendy Fry [facility] 07-04-2024 Miscellaneous Notes I called Vidhi [...] Fry I spoke with Vidhi @ the [facility] and x-rays were completed. I called [facility] and they emailed them. I forwarded to doctor to review. They also want to remove rebekah and they will email a pic for review. Glendy Fry 2 view L femur x-rays to be done on 05-29 with films to view Glendy Fry documented in this encounter [facility] 07-04-2024 Telephone encounter Note Vidhi-called to see if we rec'd the films yet. I let her know we did not but I will call [facility] and have them emailed in. Glendy Fry [facility] 06-20-2024 Telephone encounter Note This Rx was cancelled upon discharge from [facility]the trauma surgery team on 05/19. Patient should discuss with surgeon re resuming . [facility] Work Phone: 06-20-2024 Miscellaneous Notes This Rx was cancelled upon discharge from [facility]the trauma surgery team on 05/19. Patient should discuss with surgeon re resuming . Images from the original note were not included. documented in this encounter [facility] 06-20-2024 Telephone encounter Note Images from the original note were not included. [facility] 06-09-2024 Telephone encounter Note nurse Ivelisse, called and the patient's daughter is requesting the x-ray to be done sooner more like the beginning of July to see if there have been any changes. I will check with the doctor and call them back. Glendy Fry [facility] 06-01-2024 Telephone encounter Note X-rays were good, rebekah were able to be removed and Vidhi will call with any further questions. Next x-ray to be done in 8 weeks. Glendy Fry [facility] 05-30-2024 Telephone encounter Note I spoke with Vidhi @ the SNF and x-rays were completed. I called [facility] and they emailed them. I forwarded to doctor to review. They also want to remove rebekah and they will email a pic for review. Glendy Fry [facility] 05-29-2024 Telephone encounter Note Kathrine from [facility] calling asking for a copy of patient immunizations to be faxed to [phone]. Printed and faxed as requested. [facility] 05-29-2024 Miscellaneous Notes Kathrine from [facility] calling asking for a copy of patient immunizations to be faxed to [phone]. Printed and faxed as requested. documented in this encounter [facility] 05-22-2024 Telephone encounter Note 2 view L femur x-rays to be done on 05-29 with films to view Glendy Fry [facility] 05-22-2024 Telephone encounter Note Faxed November 2023 ov notes to [facility], per Natalya request. Natalya needed ov notes that included medication list and problem list. Reports patient was d/c'd from [facility] to their residential/rehab. Reports patient Dx: subdural hemorrage from a fall, and left knee fracture also from fall. [facility] 05-22-2024 Miscellaneous Notes Faxed November 2023 ov notes to [facility], per Natalya request. Natalya needed ov notes that included medication list and problem list. Reports patient was d/c'd from [facility] to their residential/rehab. Reports patient Dx: subdural hemorrage from a fall, and left knee fracture also from fall. documented in this encounter [facility] 05-22-2024 Telephone encounter Note I spoke with the patient and scheduled an appointment. Glendy Fry [facility] 05-22-2024 Miscellaneous Notes I spoke with [...] than patient: Pamela Ortiz Best contact number: [phone] Thank you, Natasha Nelson May 22, 2024 10:28 AM documented in this encounter [facility] 05-22-2024 Telephone encounter Note ----- Message from Natasha [employer] sent at 05/22/2024 10:28 AM EST ----- [...] than patient: Pamela Ortiz Best contact number: [phone] Thank you, Natasha Nelson May 22, 2024 10:28 AM [facility] 05-19-2024 Note [facility] 05-18-2024 Note [facility] 05-18-2024 Note [facility] 05-18-2024 Note [facility] 05-17-2024 Note [facility] 05-17-2024 Note [facility] 05-16-2024 Note [facility] 05-16-2024 Note [facility] 05-16-2024 Note [facility] 05-15-2024 Note [facility] 05-15-2024 Note [facility] 05-15-2024 Note [facility] 05-14-2024 Note [facility] 05-14-2024 Note [facility] 05-14-2024 Note [facility] 05-13-2024 Note [facility] 05-13-2024 Note [facility] 05-13-2024 Note HNO ID: [id number] Author: NOTE, INTERFACE, ? Service: ? Author Type: ? Type: Progress Notes Filed: 05/18/2024 16:04 Note Text: Epic Scheduled Downtime: 05/13/2024 1:00:00 AM to 05/13/2024 2:52:17 AM [facility] 05-12-2024 Note [facility] 05-12-2024 Note [facility] 05-12-2024 Note [facility] 05-11-2024 Note [facility] 05-11-2024 Note [facility] 05-11-2024 Note [facility] 05[facility]11-2024 Note [facility] 05-11-2024 Note [facility] 05-11-2024 Note [facility] 05-11-2024 Note [facility] 05-10-2024 Note [facility] 05-10-2024 Telephone encounter Note Last read by Shelley Davenport at 1:22 PM on 05/09/2024. Tana Tirado [facility] 05-10-2024 Miscellaneous Notes Last read by Shelley Davenport at 1:22 PM on 05/09/2024. Tana Tirado Images from the original note were not included. Adina Lay APRN.HIMA P [facility] 6 month follow up with Dr. Walker 1st attempt Sent mc to call office. Jonathon Morse PAC documented in this encounter [facility] 05-10-2024 Note [facility] 05-10-2024 Note [facility] 05-10-2024 Note [facility] 05-09-2024 Note [facility] 05-09-2024 Note [facility] 05-09-2024 Telephone encounter Note Images from the original note were not included. Adina Lay APRN.CNP [facility] 6 month follow up with Dr. Walker 1st attempt Sent mc to call office. Jonathon Lito PAC [facility] 05-09-2024 Note [facility] 05-09-2024 Instructions Adina Lay APRN.CNP - 05/09/2024 10:36 AM EST Plan: 1) stay on the same dose of Mounjaro 2) return to Dr. Rajiv Walker in 6 months documented in this encounter [facility] 05-09-2024 Note [facility] 05-09-2024 Note [facility] 05-08-2024 Note [facility] 05-08-2024 Note [facility] 05-08-2024 Note [facility] 05-08-2024 Note [facility] 05-07-2024 Note [facility] 05-07-2024 Note [facility] 05-07-2024 Note [facility] 05-07-2024 Note [facility] 05[facility]07-2024 Note [facility] 05-07-2024 Note [facility] 05-07-2024 Note [facility] 05-07-2024 Note [facility] 05-06-2024 Note [facility] 05-06-2024 Note [facility] 05-06-2024 Note [facility] 05-06-2024 Note [facility] 05-06-2024 History of Present illness Narrative Images from the original note were not included. CRITICAL CARE TRANSPORT MEDICAL CONTROL CONSULT NOTE Patient Name: Miriam Davenport Service Date: May 06, 2024 Referring Facility: [facility] Accepting Facility: [facility] REASON FOR TRANSPORT: higher [...] consult, significant for dementia who presented to [facility] for evaluation of SAH s/p fall. [...] read back via telephone with CCT Transport hospitality team member, Santos Douglas RN SIGNATURE: Amanda Patterson APRN.CNP Acute Care Nurse Practitioner Critical Care Transport documented in this encounter [facility] 05-05-2024 History of Present illness Narrative DISTANCE HEALTH VISIT This Team Access Model visit is a virtual encounter. It required patient-provider interaction for the medical decision making as documented below. I have communicated my name and active licensure. The patient's identity and physical location were verified at the time of this visit. Either the patient or their legal publications sales representative has been informed of the [...] mailing) Data Review daughter Hardy has iPhone=Von ([phone]) History Diabetes type 2, dx 1990 last eye exam November, had cataract surgery, no DM eye disease December 2022, though has early macular degen no hx [place], stroke, claudication, intolerant of statins, niacin and [...] x 3. 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 Tape [Other] documented in this encounter [facility] 05-03-2024 Telephone encounter Note Appointment needs to be rescheduled with Dr. Raymundo Jensen [facility] 05-03-2024 Miscellaneous Notes Appointment needs to be rescheduled with Dr. Raymundo Jensen documented in this encounter [facility] 04-28-2024 Instructions Guillaume Dominguez MD - [...] Montelongo in May. - Next appointment with radar repairer Adina Lay on May 05. - Schedule an appointment with Dr. Knott for dementia evaluation. documented in this encounter [facility] 04-28-2024 History of Present illness Narrative This note was created using HomeSphereriter. Subjective Miriam Davenport is a 84 year [...] which she discontinued 2 years ago with instructional technology specialist approval. She is not currently following with a instructional technology specialist. 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 To be administered at [facility] by nurse apixaban (ELIQUIS) 5 mg [...] was 6.3% in January. - Follow-up with radar repairer Adina Lay on May 05. # Vitamin [...] which included preparing to see the patient, jyrw-ma-cyve patient care, completing clinical documentation, obtaining and/or reviewing separately obtained history, performing a medically appropriate examination, and counseling and educating the patient/family/caregiver. Guillaume Dominguez MD documented in this encounter [facility] 04-14-2024 Telephone encounter Note Received voicemail [...] something scheduled soon. My phone number is [phone]. I am her medical proxy. Thank you. Left L4-5 lumbar transforaminal epidural steroid injection 03-30-[address] Montelongo Last office visit with Nic Garcia APRN.TRAINING AND DEVELOPMENT REP 03-10-24 Call to patient's daughter. Started at [...] lidocaine/voltaren gel, ice/heat, rest. She verbalized understanding. [facility] 04-14-2024 Miscellaneous Notes Received voicemail 04-14-24 [...] something scheduled soon. My phone number is [phone]. I am her medical proxy. Thank you. Left L4-5 lumbar transforaminal epidural steroid injection 03-30-[address] Montelongo Last office visit with Nic Garcia APRN.TRAINING AND DEVELOPMENT REP 03-10-24 Call to patient's daughter. Started at 9/10 pain level prior to injection, the injection has taken the pain down to a 5/10, but now within the past week it has gone back up to 7/10. She is able to walk, but pain is increasingly going up. Spoke to HAZEL Hough who recommended patient seeing Dr. Montelongo versus Oralia Garcia APRN.TRAINING AND DEVELOPMENT REP. Will have PSS reach out to daughter Hardy to schedule. Informed daughter of OTC remedies patient can use as long as there are no other contraindications including tylenol/ibuprofen, lidocaine/voltaren gel, ice/heat, rest. She verbalized understanding. documented in this encounter [facility] 03-10-2024 Telephone encounter Note Procedure: Left L4-5 TFESI Procedure Date: 03/30/2024 Cardiac Clearance: Eliquis Cardiac Clearance letter generated and faxed to patient's PCP, Dr. Guillaume Dominguez, for approval to hold Eliquis for two days prior to injection procedure. Fax confirmation received. Awaiting determination. [facility] 03-10-2024 Miscellaneous Notes Procedure: Left L4-5 TFESI Procedure Date: 03/30/2024 Cardiac Clearance: Eliquis Cardiac Clearance letter generated and faxed to patient's PCP, Dr. Guillaume Dominguez, for approval to hold Eliquis for two days prior to injection procedure. Fax confirmation received. Awaiting determination. documented in this encounter [facility] 03-10-2024 History of Present illness Narrative Subjective Miriam Davenport presents to [facility] for a follow [...] which included preparing to see the patient, oolk-ca-gopt patient care, completing clinical documentation, performing a [...] March 10, 2024 documented in this encounter [facility] 01-13-2024 Miscellaneous Notes Daughter Hardy called to get a list of pt's allergies to [facility]. Pt broke her hip on Wednesday01-10-24 and had surgery on 01-11-24. Pt now in TCU at [facility]. Pt was given Hydrocodone and daughter reports pt is allergic to this. Pt is itching and daughter is upset because they never contacted her. I called TCU and got their fax and faxed over the allergy list. Faxed the snapshot over to [phone], attn: Martine. Marquita Mclaughlin LPN documented in this encounter [facility] 01-13-2024 Telephone encounter Note Daughter Hardy called to get a list of pt's allergies to [facility]. Pt broke her hip on Wednesday01-10-24 and had surgery on 01-11-24. Pt now in TCU at [facility]. Pt was given Hydrocodone and daughter reports pt is allergic to this. Pt is itching and daughter is upset because they never contacted her. I called TCU and got their fax and faxed over the allergy list. Faxed the snapshot over to [phone], attn: Martine. Marquita Mclaughlin LPN [facility] 01-10-2024 History of Present illness Narrative [...] Hardy on audio on phone during visit. Miriampayton Davenport did symptoms for 2 weeks. Notes that she voided just previous to her appointment. She has to return for lab work tomorrow. Recommend completing lab work including urinalysis with reflex culture tomorrow. Start Macrobid. - UA DIP B/O - URINE CULTURE - URINALYSIS WITH MICROSCOPIC, REFLEX CULTURE Comfort Patterson APRN.SURFACE BOSS Medical Decision Making: Problems: Low: Acute, uncomplicated illness or injury Data: Unique test(s) ordered: 2 Risk: Moderate: Drug management Medical Decision Making Level: 3 - Low documented in this encounter [facility] 01-10-2024 Instructions Comfort Patterson APRN.CNS - [...] treated. A physician, nurse practitioner or physician culinary assistant may treat with a short course [...] if symptoms resolve. documented in this encounter [facility] 12-27-2023 History of Present illness Narrative [...] PATIENT PRESENTS WITH AN IMPLANTABLE OR ATTACHED NEW CLIENT BANKING SERVICES CLERK: No RADIOLOGY DEPARTMENT: General X-ray: Exam(s) Completed: Lower Extremity X-Ray(s): Knee, AP / LAT Right PERIPHERAL IV DATA: Not applicable SIGNED BY: RT Luis(R) December 27, 2023 1:34 PM documented in this encounter [facility] 12-24-2023 History of Present illness Narrative [...] once every month. 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 Anxiety State - 07/28/2007 Pernicious Anemia - 04/13/2007 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 - 03/29/2007 Eating Disorder, Unspecified - 03/29/2007 Occlusion and Stenosis of Carotid Artery Without Mention of Cerebral Infarction - 03/09/2006 Comment: mild stenosis shown on u/s at [facility] u/s repeated 02/02/07 with no change [...] Josefa Caputo APRN-HIMA documented in this encounter [facility] 12-21-2023 Telephone encounter Note DaughterLashaun, reports [...] Chisholm RN December 21, 2023 1:12 PM [facility] 12-21-2023 Miscellaneous Notes Lashaun Cho, reports [...] 2023 1:12 PM documented in this encounter [facility] 12-10-2023 History of Present illness Narrative This note was created using HomeSphereriter. Subjective Miriam Davenport is a 83 year old female. Patient presents with: F/U 6 months SUBJECTIVE: Miriam Davenport is a 83 year old year old lady here today for 6 month follow up appointment for review of medical conditions. Doing well at [facility]. Likes their rooms (there with her ). [...] Would like to pursue geriatric consultation in [place]. 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 1997 MORBID OBESITY 08/18/2007 Obstructive sleep apnea Sleep study 2003 Occlusion and stenosis of carotid artery without mention of cerebral infarction 03/09/2006 mild stenosis shown on u/s at [facility] u/s repeated 02/02/07 with no change Open fracture of tuft of distal phalanx of finger 05/06/2022 PAC (premature atrial contraction) Pulmonary embolism (HCC) Pure hypercholesterolemia Type II or unspecified type diabetes mellitus with renal manifestations, uncontrolled(250.42) Unspecified glaucoma(365.9) Unspecified pruritic disorder Current Outpatient Medications Medication Sig cyanocobalamin 1,000 mcg/mL Inject 1 mL intramuscularly once every month. To be administered at [facility] by nurse apixaban (ELIQUIS) 5 mg [...] Abs Lymph 1.00 - 4.00 k/uL 1.35 Pitkin% % 8.4 Abs Pitkin <0.87 k/uL 0.70 Eosin% % 1.7 Abs [...] keep trying to eat healthy diet at [facility]. Will verify when will need [...] Guillaume Dominguez MD documented in this encounter [facility] 11-12-2023 Telephone encounter Note Daughter calls asking about status of request. Daughter notified that order was faxed over to [facility] this am. Tabitha Madrid RN [facility] 11-12-2023 Miscellaneous Notes Daughter calls asking about status of request. Daughter notified that order was faxed over to [facility] this am. Tabitha Madrid RN Spoke with nurse shelley Chambers and she states prescription can be faxed to them at [phone]. Prescription faxed See if faxed of order that was printed is what they need. Otherwise, call in the order if that is what they need Patient's request for medication is as follows: Requested Prescriptions Signed Prescriptions Disp Refills cyanocobalamin 1,000 mcg/mL 1 mL 12 Sig: Inject 1 mL intramuscularly once every month. To be administered at [facility] by nurse Authorizing Provider: GUILLAUME DOMINGUEZ Prescription(s) printed as above. Please process accordingly. Daughter (Hardy) calls to report that patient is now residing at [facility] and they are able to give patient her monthly B-12 injections. Daughter requests that an order for [facility] be given so that they are able to administer medication. Per daughter: [facility] Nurse Line: [phone] Patient cancelled last weeks appointment so is due anytime for injection. Please review and advise. Anne Jennings RN documented in this encounter [facility] 11-12-2023 Telephone encounter Note Spoke with nurse shelely Chambers and she states prescription can be faxed to them at [phone]. Prescription faxed [facility] 11-11-2023 Telephone encounter Note See if faxed of order that was printed is what they need. Otherwise, call in the order if that is what they need Patient's request for medication is as follows: Requested Prescriptions Signed Prescriptions Disp Refills cyanocobalamin 1,000 mcg/mL 1 mL 12 Sig: Inject 1 mL intramuscularly once every month. To be administered at [facility] by nurse Authorizing Provider: GUILLAUME DOMINGUEZ Prescription(s) printed as above. Please process accordingly. [facility] 11-11-2023 Telephone encounter Note Spoke to patient's daughter and confirmed that [facility] address was correct and she provided the room number, which is 186. Letter has been put in the mail. [facility] 11-11-2023 Miscellaneous Notes Spoke to patient's daughter and confirmed that [facility] address was correct and she provided the room number, which is 186. Letter has been put in the mail. documented in this encounter [facility] 11-08-2023 Telephone encounter Note Daughter (Hardy) calls to report that patient is now residing at [facility] and they are able to give patient her monthly B-12 injections. Daughter requests that an order for [facility] be given so that they are able to administer medication. Per daughter: [facility] Nurse Line: [phone] Patient cancelled last weeks appointment so is due anytime for injection. Please review and advise. Anne Jennings RN [facility] 10-29-2023 Instructions Curtis Nassar MD - [...] Curtis Nassar MD documented in this encounter [facility] 10-29-2023 History of Present illness Narrative [...] MD Data Review daughter Hardy has iPhone=FaceTime ([phone]) History Diabetes type 2, dx 1990 last eye exam November, had cataract surgery, no DM eye disease December 2022, though has early macular degen no hx SC, stroke, claudication, intolerant of statins, niacin and [...] x 3. 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 Tape [Other] documented in this encounter [facility] 10-29-2023 Telephone encounter Note The following approved medication requests have been transmitted electronically. Requested Prescriptions Pending Prescriptions Disp Refills apixaban (ELIQUIS) 5 mg tab(s) 60 tablet 11 Sig: Take 1 tablet by mouth two times a day. Guillaume Dominguez MD [facility] 10-29-2023 Miscellaneous Notes The following approved [...] you. Natalya Byrd. documented in this encounter [facility] 10-29-2023 Telephone encounter Note Daughter calls to let provider know she only has enough Eliquis to last through tomorrow 10/30/2023. Anne Jennings RN [facility] 10-28-2023 Telephone encounter Note Patient has [...] care: 12/10/2023 Please advise. Thank you. Natalya Atkinson Pss. [facility] Work Phone: 10-11-2023 History of Present [...] plans to go to assisted living at [facility].She notes currently getting assistance with medications [...] Has seen Dr Alegre and Dr. Schmitt [facility] cardiologists. 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 1997 MORBID OBESITY 08/18/2007 Obstructive sleep apnea Sleep study 2003 Occlusion and stenosis of carotid artery without mention of cerebral infarction 03/09/2006 mild stenosis shown on u/s at [facility] u/s repeated 02/02/07 with no change [...] Lymph 1.00 - 4.00 k/uL 1.90 1.35 Pitkin% % 8.5 8.4 Abs Pitkin <0.87 k/uL 0.78 0.70 Eosin% % 2.0 [...] Next appointment 12/09 at 3:25pm MD Comfort Acotsa APRN.SURFACE BOSS Medical Decision Making: Problems: Moderate: 2+ stable chronic illnesses Data: Unique test result(s) reviewed: 3+ Risk: Low: Low risk from testing/treatment Medical Decision Making Level: 4 - Moderate documented in this encounter [facility] 10-08-2023 Telephone encounter Note Yes she can go back on Mounjaro 5 mg once a week. She can take Mounjaro 1 week after taking ozempic. If there is a shortage of Mounjaro, she will need 1 mg of ozempic (not 0.5 mg). Rx Mounjaro was sent to [facility] Walker MD [facility] 10-08-2023 Miscellaneous Notes Yes she can go back on Mounjaro 5 mg once a week. She can take Mounjaro 1 week after taking ozempic. If there is a shortage of Mounjaro, she will need 1 mg of ozempic (not 0.5 mg). Rx Mounjaro was sent to [facility] in [place] Rajiv Walker MD Pts daughter states pt took Ozempic starting 10/02/23, since Mounjaro was on back order, and her blood sugars have been high ever since. She states [facility] in [place] contacted pt to let her know medication was back in stock. She would like to know if it would be okay for pt to switch back to Mounjaro for her next dose, this Wednesday. [facility] phone [phone] documented in this encounter [facility] 10-07-2023 Telephone encounter Note Pts daughter states pt took Ozempic starting 10/02/23, since Mounjaro was on back order, and her blood sugars have been high ever since. She states [facility] in [place] contacted pt to let her know medication was back in stock. She would like to know if it would be okay for pt to switch back to Mounjaro for her next dose, this Wednesday. [facility] phone [phone] [facility] 10-04-2023 History of Present illness Narrative Patient presents for B-12 injection. Denies any problems at this time. Patient instructed on any SE of medication, verbalized understanding and agreed to proceed with treatment. Tolerated injection well. Ning Mckeon LPN documented in this encounter [facility] 09-29-2023 Note Addended by: RAJIV WALKER on: 09/29/2023 08:01 PM Modules accepted: Orders [facility] 09-29-2023 Miscellaneous Notes Addended by: RAJIV [...] does not have any Mounjaro. Hardy, daughter: [phone] documented in this encounter [facility] 09-29-2023 Telephone encounter Note She can [...] mg once a week. Rajiv Walker MD [facility] 09-29-2023 Telephone encounter Note RN returned phone call. Let patient's daughter Hardy know that once the provider reviews chart, we'll get back to her with alternative prescription. 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 PSS: it is ok to transfer Hardy's call. [facility] 09-28-2023 Telephone encounter Note September 28, 2023 3:13 PM Patient's daughter called about the Mounjaro medication for patient. She is concerned as there is a national backorder on the Mounjaro medication. She wants to know if there is an alternative or what can be done in the meantime. Patient currently does not have any Mounjaro. Hardy, daughter: [phone] [facility] 09-17-2023 Miscellaneous Notes The following approved [...] you. Jeanne Davalos. documented in this encounter [facility] 09-06-2023 History of Present illness Narrative Patient presents for B-12 injection. Denies any problems at this time. Patient instructed on any SE of medication, verbalized understanding and agreed to proceed with treatment. Tolerated injection well. Ning Mckeon LPN documented in this encounter [facility] 08-16-2023 Miscellaneous Notes Pts daughter called and is notified of providers message and instructions. She voices understanding. Bessie Watson, RN No problem, I sent in the [...] provider sends a new script in to [facility] for 20 mg take 2 tablets daily, [employer] will cover that. Called and confirmed with [facility] pharmacist that they had run the 40 [...] leave a voicemail. documented in this encounter [facility] 08-16-2023 Miscellaneous Notes DNR comfort care orders faxed to [facility] Medical Records at [phone]. Copy also sent to scanning as well as copy mailed to patients home address as requested. MICHAEL Vazquez documented in this encounter [facility] 08-13-2023 Miscellaneous Notes This was already done. Pharmacy notified. Pharmacy reports Cymbalta 40 mg needs a PA. PRIOR AUTHORIZATION Medication for Prior Authorization: Duloxetine Cymbalta 40 mg Other formulary meds available : NO Insurance Company: [employer] Medicare part D Insurance Company phone number: [phone] Patient insurance ID number: [id number] Marquita Mclaughlin LPN documented in this encounter [facility] 08-13-2023 Miscellaneous Notes Images from the original note were not included. Prior authorization approved Payer: [employer] [id number] PA Case: [id number], Status: Approved, Coverage Starts on: 05/31/2023 12:00:00 [...] to its destination. To be filled at: [id number] [place] [address] - [address] [phone] [id number] Electronic PA completed for duloxetine (cymbalta) documented in this encounter [facility] 08-13-2023 Instructions Josefa Caputo APRN.CNP - 08/13/2023 11:20 AM EDT Plan to see Dr. Knott with geriatrics here in [place] sometime in November or after. documented in this encounter [facility] 08-13-2023 History of Present illness Narrative [...] brain health/wellness. has had x2 strokes, in residential. 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 Knott once seeing patient here in [place]. 4. Anxiety disorder, unspecified type - ICD9: [...] Josefa Caputo APRN-HIMA documented in this encounter [facility] 08-11-2023 Instructions Martha Germain DO - 08/11/2023 9:59 AM EDT Appointments: - Brain Health and Wellness [facility]: [phone] (option 1). This is a series of 6 group visits where you will learn how to improve your memory with a healthy lifestyle. It is available as a virtual visit or in [place] on Wednesdays 10-noon, 6 visits every other week. Next group starts January 04. - [facility] Successful Aging Program (geriatrics): [phone] Follow these guidelines to improve your memory and brain function: - Follow the MIND Diet as closely as possible. See the dietary guidelines below. - Do some form of physical activity every day, even for 5-10 minutes. The goal is to move more and sit less. See the physical activity guidelines below. Find an exercise class at the [facility] and go once a week. - Engage in social activities as much as possible. Talking to other people is good for the brain! - Consider volunteering. It provides social interaction, purpose, structure, and a way to give back to the community. Opportunities can be found at www.[email or web address] - Play games at least 3x/week that will stimulate and challenge your brain. Brain games are available on the following websites: MobilityBee.com and Acsis. - Practice meditation or deep breathing for [...] fish and fish high in mercury (swordfish, Brazilian sea raya, orange roughy, ahi tuna, albacore [...] the Lancet Commission - Great resource in Bee for patients and families: Fashion Playtes https://RealBio Technology.org/ - Memory Cafes (A Dementia Friendly LIFE) in [facility]. [email or web address].org/memory-cafes - We Care program for caregivers through [facility] [place]: [phone] or [email or web address] Memory research at [facility]: The [facility] for Brain Health at [facility] and [place], [place] is conducting clinical trials to advance new treatments and diagnostic approaches for patients with memory loss, as well as cognitively normal patients. To learn more about current trials at [facility] please call the Center for Brain [facility] Research Line at [phone], leave a message and one of our staff will contact you. documented in this encounter [facility] 08-11-2023 History of Present illness Narrative [facility] SUBJECTIVE: Miriam Davenport is a 83 year old female with a pertinent PMH as listed below who presents for a cognitive screening and assessment of modifiable risk factors of cognitive decline. Consultation requested by Comfort Patterson APRN.SURFACE BOSS for an opinion regarding Miriam Davenport. My [...] activity None Social history: Home: lives in [place] ( is in SNF) Work: retired at age 80 from [employer] Education: 15 years Alcohol: none Supplements: iron, 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 1997 MORBID OBESITY 08/18/2007 Obstructive sleep apnea Sleep study 2003 Occlusion and stenosis of carotid artery without mention of cerebral infarction 03/09/2006 mild stenosis shown on u/s at [facility] u/s repeated 02/02/07 with no change [...] for infectious vulvitis Blood-Glucose Meter,Continuous (DEXCOM G7 CHAMPAGNE MAKER) [facility] use to check sugars Blood-Glucose Sensor (DEXCOM [...] (1 is true, 0 is false): 0 Hope Cognitive Assessment (MoCA): 22 Score of 26 [...] benefit from the [facility] to learn the tools to protect against cognitive decline and improve working memory. The [facility] will provide education on the evidence-based aspects of a healthy lifestyle that can positively impact cognitive function (nutrition, physical activity, restorative sleep, stress management). Assessments completed in clinic today will be scanned into the medical record. (G31.84) Mild cognitive impairment (primary encounter diagnosis) Comment: MOCA Plan: CONSULT TO GERIATRICS, CONSULT TO BRAIN HEALTH & WELLNESS [facility] Today we reviewed: Modifiable risk factors of cognitive decline Referrals: [facility] Wellness [facility] Geriatrics Successful Aging Program Lifestyle recommendations to [...] games are available on the following websites: [employer]irt, MobilityBee.com, and Acsis. - Practice meditation or deep breathing for a few minutes each day. You can sit quietly and focus on your breath or listen to a guided meditation on an madhvai such as [place]. - Resources provided including information on memory research at the . (G47.33) ASIM (obstructive sleep apnea) Comment: untreated Plan: She declines referral to sleep medicine and does not want to address this now. Discuss at a future visit. Return after [facility] I spent 65 minutes in ihde-ao-ihjt time with the patient of which greater than 50% of the time was spent in counseling and coordination of care. Martha Germain DO, MPH Wellness and Preventive Medicine [facility] for [facility] Health CC: Comfort Harpers [id number] [facility] [place] [id number] documented in this encounter [facility] 08-02-2023 History of Present illness Narrative Patient presents for B-12 injection. Denies any problems at this time. Patient instructed on any SE of medication, verbalized understanding and agreed to proceed with treatment. Tolerated injection well. Ning Mckeon LPN documented in this encounter [facility] 07-29-2023 Instructions Milla Lara RN - [...] Radha Walters MD documented in this encounter [facility] 07-29-2023 History of Present illness Narrative 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 1997 MORBID OBESITY 08/18/2007 Obstructive sleep apnea Sleep study 2003 Occlusion and stenosis of carotid artery without mention of cerebral infarction 03/09/2006 mild stenosis shown on u/s at [facility] u/s repeated 02/02/07 with no change [...] for infectious vulvitis Blood-Glucose Meter,Continuous (DEXCOM G7 [place] MAKER) [facility] use to check sugars Blood-Glucose Sensor (DEXCOM [...] which included preparing to see the patient, [id number] patient care, completing clinical documentation, obtaining and/or [...] Walters MD' 08/11/23 documented in this encounter [facility] 07-21-2023 History of Present illness Narrative [...] PATIENT PRESENTS WITH AN IMPLANTABLE OR ATTACHED NEW CLIENT BANKING SERVICES CLERK: No RADIOLOGY DEPARTMENT: Mammography PERIPHERAL IV DATA: Not applicable SIGNED BY: RT Chioma(R) July 21, 2023 3:33 PM documented in this encounter [facility] 07-08-2023 History of Present illness Narrative 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 1997 MORBID OBESITY 08/18/2007 Obstructive sleep apnea Sleep study 2003 Occlusion and stenosis of carotid artery without mention of cerebral infarction 03/09/2006 mild stenosis shown on u/s at [facility] u/s repeated 02/02/07 with no change [...] 473 mL 11 Blood-Glucose Meter,Continuous (DEXCOM G7 [place]AMPAGNE MAKER) misc use to check sugars (Patient not [...] mcg INTRAMUSCULAR q 1 MONTH Josefa Caputo APRN.TRAINING AND DEVELOPMENT REP 1,000 mcg at 07/05/23 1336 perflutren lipid microspheres 1.3 mL in NaCl (PF) 0.9% 10 mL injection (DEFINITY) INTRAVENOUS DIRECTED PRN Maykel Whitfield, sodium chloride 0.9 % (flush) 10 mL [...] Abs Lymph 1.00 - 4.00 k/uL 1.90 Pitkin% % 8.5 Abs Pitkin <0.87 k/uL 0.78 Eosin% % 2.0 Abs [...] Rajiv Walker MD documented in this encounter [facility] 07-07-2023 Miscellaneous Notes Called pt and [...] orders are signed. documented in this encounter [facility] 06-25-2023 Instructions Nhi De La Torre APRN.HIMA - 06/25/2023 2:59 PM EST Continue the same medications for now. Stress test and echo were both normal - you have a strong heart and no evidence of decreased blood flow to the heart muscle. I will send a new Rx for the Metoprolol to [facility]. Follow up in 1 year. documented in this encounter [facility] 06-25-2023 History of Present illness Narrative Images from the original note were not included. [facility] [place] Lonnie Brandon Department of Cardiovascular Medicine SECTION [...] II - Controlled S/p PE, multiple - [facility] 2020 with recurrence after stopping AC per patient - continue On apixaban 5 mg BID ASIM - No tx declines CPAP - likely contributing to her SOB I spent a total of 30 minutes on the date of the service which included preparing to see the patient, [id number] patient care, completing clinical documentation, performing a [...] the follow up. Nhi De La Torre, GM.[facility] Cardiology Nurse Practitioner Section of [facility] Cardiology [facility] Dept of Cardiovascular Medicine [facility] [place] [id number] Office Office June 25, 2023 2:41 PM This note was partially generated using Taodyne voice recognition system and may contain errors [...] NORMAL VARIANT Confirmed by MD KIMBERLY, QARAB ([id number]) on 01/13/2023 3:53:16 PM LABS: Sodium (mmol/L) 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 1997 MORBID OBESITY 08/18/2007 Obstructive sleep apnea Sleep study 2003 Occlusion and stenosis of carotid artery without mention of cerebral infarction 03/09/2006 mild stenosis shown on u/s at [facility] u/s repeated 02/02/07 with no change [...] obtained by others. Nhi De La Torre, SWITCH OPERATORS SUPERVISOR.TRAINING AND DEVELOPMENT REP CURRENT MEDICATIONS: Current Outpatient Medications Medication Sig [...] mouth once daily. Blood-Glucose Meter,Continuous (DEXCOM G7 [place] MAKER) [facility] use to check sugars (Patient not taking: [...] INTRAVENOUS DIRECTED PRN documented in this encounter [facility] 05-14-2023 History of Present illness Narrative This note was created using NoteWriter. 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 Blood-Glucose Meter,Continuous (DEXCOM G7 [place]AMP[place] MAKER) [facility] use to [facility] sugars (Patient not [...] know if decide wants referral for [facility] evaluation 2. Vitamin D deficiency [...] ARTIS SCREENING 6. Encounter for immunization Z23 MoPowered COVID-19 VACCINE (2022- SEASON) AGE 12+ YR [...] noted above, will pursue consult to [facility] for cognitive testing, etc. Guillaume Dominguez MD documented in this encounter [facility] 05-04-2023 History of Present illness Narrative Patient presents for B-12 injection. Denies any problems at this time. Patient instructed on any SE of medication, verbalized understanding and agreed to proceed with treatment. Tolerated injection well. Ning Mckeon LPN documented in this encounter [facility] 03-30-2023 Instructions Curtis Nassar MD - [...] Curtis Nassar MD documented in this encounter [facility] 03-30-2023 History of Present illness Narrative Virtual Visit utilizing both audio and video components Von I have communicated my name and active licensure. The patient's identity and physical location were verified at the time of this visit. Either the patient or their legal publications sales representative has been informed of the [...] MD Data Review daughter Hardy has iPhone=FaceTime ([phone]) History Diabetes type 2, dx 1990 last eye exam November, had cataract surgery, no DM eye disease December 2022, though has early macular degen no hx SC, stroke, claudication, intolerant of statins, niacin and 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 1997 MORBID OBESITY 08/18/2007 Obstructive sleep apnea Sleep study 2003 Occlusion and stenosis of carotid artery without mention of cerebral infarction 03/09/2006 mild stenosis shown on u/s at [facility] u/s repeated 02/02/07 with no change [...] rash. Tape [Other] documented in this encounter [facility] 03-18-2023 Miscellaneous Notes Okayed Patient last visit with PCP 02/02/23 Follow up appointment scheduled 05/14/23 aRyne Winter Ma documented in this encounter [facility] 03-04-2023 History of Present illness Narrative Patient presents for B-12 injection. Denies any problems at this time. Patient instructed on any SE of medication, verbalized understanding and agreed to proceed with treatment. Tolerated injection well. Ning Mckeon LPN documented in this encounter [facility] 02-19-2023 Miscellaneous Notes Patient reports she [...] Shea Chisholm RN documented in this encounter [facility] 02-04-2023 History of Present illness Narrative Patient presents for B-12 injection. Denies any problems at this time. Patient instructed on any SE of medication, verbalized understanding and agreed to proceed with treatment. Tolerated injection well. Rechecked BP today d/t very low reading at office visit 02/02/23. Patient states that she feels better. Ning Mckeon LPN documented in this encounter [facility] 02-02-2023 History of Present illness Narrative [...] mouth once daily. 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 Osteopenia - 04/20/2008 Comment: 2012 t score -1.7 at [facility] Contact Dermatitis and Other Eczema, Due to Unspecified Cause - 12/07/2007 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 Anxiety State - 07/28/2007 Pernicious Anemia - 04/13/2007 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 - 03/29/2007 Eating Disorder, Unspecified - 03/29/2007 Occlusion and Stenosis of Carotid Artery Without Mention of Cerebral Infarction - 03/09/2006 Comment: mild stenosis shown on u/s at [facility] u/s repeated 02/02/07 with no change Calculus of Gallbladder Without Mention of Cholecystitis Or Obstruction - 04/09/2005 Comment: No evidence obstruction on HIDA scan 03/04 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 [address] new administration order at this time. Ning Mckeon LPN documented in this encounter [facility] 01-28-2023 History of Present illness Narrative [...] Discontinued PROCEDURE TYPE: NM Stress: 16.0 mCi [id number] was administered IV for Rest Imaging at 08:10 by . 46.4 mCi [id number] was administered IV for Stress Imaging at 09:17 by . PATIENT DISCHARGED TO: Ambulatory patient, left [place] department area. A Diagnostic radioactive procedure has taken place, with no further precautions necessary other than routine body substance precautions. More information regarding radiation safety can be found using this link: [email or web address] SIGNATURE: HELENA Julien PATIENT NAME: Miriam Davenport DATE: January 28, 2023 TIME: 9:31 AM PAGER/CONTACT #: documented in this encounter [facility] 01-27-2023 Miscellaneous Notes Spoke with patient regarding reminder for stress test tomorrow and given instructions. documented in this encounter [facility] 01-13-2023 Miscellaneous Notes Form rec'd from [facility] asking directions for pt's anticoagulant. Pcp noted pt can hold anticoagulant 2 days prior to extraction then resume day after extraction. This was faxed back to the number on the form. documented in this encounter [facility] 01-11-2023 History of Present illness Narrative Images from the original note were not included. [facility] V[facility] [place] Lonnie Brandon Department of Cardiovascular Medicine SECTION 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 1997 MORBID OBESITY 08/18/2007 Obstructive sleep apnea Sleep study 2003 Occlusion and stenosis of carotid artery without mention of cerebral infarction 03/09/2006 mild stenosis shown on u/s at [facility] u/s repeated 02/02/07 with no change [...] Medications Medication Sig Blood-Glucose Meter,Continuous (DEXCOM G7 [employer] MAKER) misc use to check sugars Blood-Glucose Sensor [...] JVD, carotids well felt, no bruits. CARDIAC: [place] palpable in the 5th intercostal space mid [...] patient event(s). Isolated SVEs were frequent (17.7%, 611972), SVE Couplets were occasional (4.2%, 05718), and SVE Triplets were occasional (1.8%, 36994). Isolated VEs were rare (<1.0%), VE Couplets [...] Continue BB DM II Controlled S/p PE, [facility] 2020 with recurrence after stopping AC [...] DO, FACC, FCCP, FACOI CC: Guillaume Dominguez [address] [place] [address] documented in this encounter [facility] 01-08-2023 Miscellaneous Notes Patient's daughter notified. Geno Franco RN Rx e-scripted to preferred pharmacy Please notify daughter Hardy at [phone] Message has been routed to provider and [...] her mother, then set it up Hardy [phone] Thank you Veda Cardoza The DME company said that the CGM order should go to [facility]. Order pended below Maia Llanos RN Patients daughter Hardy calling in stating that Dexcom needs to be sent to [facility]. Hardy is asking for a return call to discuss Dexcom Please call Hardy back at [phone] Thank you documented in this encounter [facility] 01-04-2023 History of Present illness Narrative Patient presents for B-12 injection. Denies any problems at this time. Patient instructed on any SE of medication, verbalized understanding and agreed to proceed with treatment. Tolerated injection well. Ning Mckeon LPN documented in this encounter [facility] 12-30-2022 Instructions Curtis Nassar MD - [...] use daughter for the virtual visits via [facility] Curtis Nassar MD documented in this encounter [facility] 12-30-2022 History of Present illness Narrative [...] use daughter for the virtual visits via [employer] Nassar MD Data Review daughter has iPhone=S[employer] ([phone]) Component Latest Ref Rng & Units 10/10/2020 [...] mg/dL 100 117 126 (02/14/13): no hx SC, stroke, claudication, intolerant of statins, niacin and [...] x 2/d Physicians (06/19/14): primary doc is [place] ROS Res: positive for recent dx pulmonary 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 1997 MORBID OBESITY 08/18/2007 Obstructive sleep apnea Sleep study 2003 Occlusion and stenosis of carotid artery without mention of cerebral infarction 03/09/2006 mild stenosis shown on u/s at [facility] u/s repeated 02/02/07 with no change [...] rash. Tape [Other] documented in this encounter [facility] 12-25-2022 Miscellaneous Notes Received voicemail 12-25-22 at 9:49 AM Hi this is Shelley Davenport calling [phone]. I have a procedure scheduled for December [...] Offered to send pre procedure instructions via Elast[employer] but she states she has had trouble logging in. documented in this encounter [facility] 12-04-2022 Miscellaneous Notes [facility] called and states needs a script [...] Earline Morales LPN documented in this encounter [facility] 11-06-2022 History of Present illness Narrative Episode Visit Count: 13 Therapist That Will Accept/Oversee The Plan Of Care: Nhi Iverson Start of Care Date: 08/18/22 Onset Date: 05/31/22 Plan of Care Certification Date: 11/06/22 Next Certification Due Date: 11/06/22 [facility] PHYSICAL THERAPY DISCONTINUANCE OF CARE PLAN OF CARE UPDATE: Assessment: Miriam Bellekarli is discontinued from Physical Therapy services due to Patient/Client declining further intervention.. Patient was seen for 13 visits from Start of Care Date: 08/18/22 to 11/06/2022 and treatment included: Therapeutic exercise, Self-fpc management, and Gait training. Goals for Episode of Care: created on 08/18/22 through 09/29/22 updated 09/17/22 Goals updated on 09/29/2022 through 11/03/22 Goals updated on 11/06/2022. Pleasants in home exercise program. -- PARTIALLY MET [...] deviations identified in the objective section above. Self-Custodial Management: 1: *discussed how lumbar flexion increases [...] Nhi Iverson PT documented in this encounter [facility] 11-03-2022 Miscellaneous Notes Patient scheduled with Oralia Garcia CNP in office on 11/06/2022 [place] patient was in to the office today. [...] pain is persistent? documented in this encounter [facility] 11-03-2022 History of Present illness Narrative Patient presents for B-12 injection. Denies any problems at this time. Patient instructed on any SE of medication, verbalized understanding and agreed to proceed with treatment. Tolerated injection well. 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 Osteopenia - 04/20/2008 Comment: 2012 t score -1.7 at [facility] Contact Dermatitis and Other Eczema, Due to Unspecified Cause - 12/07/2007 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 Anxiety State - 07/28/2007 Pernicious Anemia - 04/13/2007 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 - 03/29/2007 Eating Disorder, Unspecified - 03/29/2007 Occlusion and Stenosis of Carotid Artery Without Mention of Cerebral Infarction - 03/09/2006 Comment: mild stenosis shown on u/s at [facility] u/s repeated 02/02/07 with no change [...] Josefa Caputo APRN-HIMA documented in this encounter [facility] 10-12-2022 Miscellaneous Notes Okayed MALGORZATA 08/15/22 NOV 10/27/22 Patient phones requesting refills as follows: Requested Prescriptions Pending Prescriptions Disp Refills apixaban (ELIQUIS) 5 mg tab(s) 60 tablet 11 Sig: Take 1 tablet by mouth twice daily. Please review and advise. Lety Lam documented in this encounter [facility] 10-12-2022 History of Present illness Narrative [...] facilitated with verbal, visual, and tactile cueing. Self-Custodial Management: 1: *strongly encouraged pt. to bring [...] Nhi Iverson PT documented in this encounter [facility] 10-02-2022 Miscellaneous Notes Letter generated and sent via fax at this time to patient's PCP for approval to hold Eliquis 2 days PRIOR to procedure documented in this encounter [facility] 09-29-2022 History of Present illness Narrative Patient presents for B-12 injection. Denies any problems at this time. Patient instructed on any SE of medication, verbalized understanding and agreed to proceed with treatment. Tolerated injection well. Ning Mckeon LPN documented in this encounter [facility] 09-26-2022 Miscellaneous Notes Patient scheduled in December in [place] with Dr Whitfield. 1st attempt to reach patient. Left message for patient to call office to schedule sooner appointment in Cardiology per PCP. Patient can be seen in [place] by Dr Horowitz or [facility] [phone] Should be seen sooner since she has been symptomatic :Patient scheduled with Dr. Whitfield's first available consult on 01/11. Please advise if that is too far out. documented in this encounter [facility] 09-25-2022 Miscellaneous Notes Patient has been [...] today [id number] Thank you Velvet Kebede Pss documented in this encounter [facility] 09-23-2022 Miscellaneous Notes Patient has been [...] you. Chely Erickson LPN Pharmacy verified in [facility] Patient has been identified by name and [...] Atkinson Pss \ documented in this encounter [facility] 09-23-2022 History of Present illness Narrative [...] 2022 12:04 PM documented in this encounter [facility] 09-17-2022 History of Present illness Narrative [...] created on 08/18/22 through 09/29/22 updated 09/17/22 Pleasants in home exercise program./ partially achieved Patient [...] Patient to be seen for Therapeutic exercise (36430), Neuromuscular re-education (30503), Manual therapy (75615), Self-fpc management (78580), Patient/Family/Caregiver Education, Gait Training (85204) PLAN FOR NEXT VISIT: Continue to work [...] house throughout the day. 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 Pain: Pain Pain Level: 4 Pain Location: [...] Veda Vital PT documented in this encounter [facility] 09-14-2022 History of Present illness Narrative [facility] Date: September 14, 2022 - 10:26 AM Chief Complaint: left lower back __ SUBJECTIVE: Ms. Davenport presents to the [place] [facility] for a follow up appointment regarding chronic [...] is not currently receiving medications through the [facility] [place] [facility]. 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 1. [...] your PCP/referring physician. documented in this encounter [facility] 09-11-2022 Miscellaneous Notes Patient returned call [...] team to assist documented in this encounter [facility] 09-10-2022 History of Present illness Narrative [...] PTA/Veda Vital PT documented in this encounter [facility] 09-03-2022 History of Present illness Narrative [...] Veda Vital PT documented in this encounter [facility] 09-01-2022 History of Present illness Narrative [...] Veda Vital PT documented in this encounter [facility] 09-01-2022 History of Present illness Narrative Patient presents for B-12 injection. Denies any problems at this time. Patient instructed on any SE of medication, verbalized understanding and agreed to proceed with treatment. Tolerated injection well. Ning Mckeon LPN documented in this encounter [facility] 08-26-2022 Miscellaneous Notes Spoke with patient on phone. Aware the office visit from 08/15/22 is closed and she can access via MyChart. Patient requesting copy be printed and sent to her, address checked and correct. Patient inquiring as to whether Cardiology Consult could be scheduled sooner than December, her daughter worried about her waiting that long. Patient may agree to go to [place] if can schedule sooner. Patient aware staffing [...] after visit summary to the front desk assistant and call her for seed cone picker. documented in this encounter [facility] 08-19-2022 History of Present illness Narrative [...] of Care: created on 08/18/22 through 09/29/22 Pleasants in home exercise program. Patient will decrease [...] Planned: 8 Planned Treatment Interventions: Therapeutic exercise (77643), Neuromuscular re-education (28247), Manual therapy (70276), Self-fpc management (08781), Gait Training (67799), Patient/Family/Caregiver Education PLAN FOR NEXT VISIT: Will [...] Demonstration TREATMENT: PT Treatment Interventions: Therapeutic Exercise, Self-Custodial Management Evaluation Therapeutic Exercise: 1: seated pink [...] and visual cuing. Patient education as noted. Self-Custodial Management: 1: instruction in use of ice [...] Veda Vital PT documented in this encounter [facility] 08-15-2022 Instructions Guillaume Dominguez MD - [...] going to lab) documented in this encounter [facility] 08-15-2022 History of Present illness Narrative This note was created using [employer]). Subjective Miriam Davenport is a 82 year [...] Sinus issues with allergies acting up. Noemy [place] at night helps. Does have occasion wheezing--new. 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 1997 MORBID OBESITY 08/18/2007 Obstructive sleep apnea Sleep study 2003 Occlusion and stenosis of carotid artery without mention of cerebral infarction 03/09/2006 mild stenosis shown on u/s at [facility] u/s repeated 02/02/07 with no change [...] the date of the service which included [id number] patient care, completing clinical documentation, obtaining and/or reviewing separately obtained history, performing a medically appropriate examination, counseling and educating the patient/family/caregiver, ordering medications, tests, or procedures, communicating with other HCPs (not separately reported), and independently interpreting results (not separately reported). Guillaume Dominguez MD documented in this encounter [facility] 08-12-2022 Miscellaneous Notes Spoke to pt and scheduled There is already a PT order in from Dr. Montelongo, please call patient to schedule Arelis Monahan APRN.HIMA Patient calls and state that she was given physical therapy referral to [facility] by pain management. Patient states that she went to [facility] and did not like physical therapy. Patient states that she would like to go to [place] for Physical Therapy. Patient asking if provider can write a referral to physical therapy so that she can go to [place]? Patient also reports that she has been [...] Tabitha Madrid RN documented in this encounter [facility] 08-12-2022 Miscellaneous Notes Opened in Error documented in this encounter [facility] 08-07-2022 Miscellaneous Notes Pharmacy request refi Last OV 06/10/22 Next 10/23/22 Requested Prescriptions Pending Prescriptions Disp Refills blood sugar diagnostic (ACCU-CHEK POLY PLUS TEST STRP) test strip 100 Each 11 Sig: Check sugars 3 times daily Please review and advise. Katy Fowler RN documented in this encounter [facility] 08-04-2022 Miscellaneous Notes PT location contacted at this time Fax number to send order: [phone] PT order sent via fax at this [...] to be sent to [facility] [place] Instructed patient to wait until tomorrow to [...] patient to discuss documented in this encounter [facility] 08-04-2022 History of Present illness Narrative Patient presents for B-12 injection. Denies any problems at this time. Patient instructed on any SE of medication, verbalized understanding and agreed to proceed with treatment. Tolerated injection well. Ning Mckeon LPN documented in this encounter [facility] 08-03-2022 Miscellaneous Notes Printed and mailed to patient's home address. Can we please print and resend this one too? Thanks! Pt called in and lost the letter/prescription for the handicap sticker that was given to her on 03-21-22. Requesting a new one be mailed to her. Marquita Mclaughlin LPN documented in this encounter [facility] 07-07-2022 History of Present illness Narrative Patient presents for B-12 injection. Denies any problems at this time. Patient instructed on any SE of medication, verbalized understanding and agreed to proceed with treatment. Tolerated injection well. Ning Mckeon LPN documented in this encounter [facility] 07-07-2022 History of Present illness Narrative This note was created using [employer]. 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 1997 MORBID OBESITY 08/18/2007 Obstructive sleep apnea Sleep study 2003 Occlusion and stenosis of carotid artery without mention of cerebral infarction 03/09/2006 mild stenosis shown on u/s at [facility] u/s repeated 02/02/07 with no change [...] Guillaume Dominguez MD documented in this encounter [facility] 07-02-2022 Miscellaneous Notes Wednesday07/04/22 is not [...] Marquita Mclaughlin LPN documented in this encounter [facility] 06-23-2022 Miscellaneous Notes Patient contacted office [...] time Closing encounter documented in this encounter [facility] 06-18-2022 Miscellaneous Notes Called and spoke [...] possible side effects. Please advise. Contact Information [phone] Thank you Veda Cardoza documented in this encounter [facility] 06-18-2022 Miscellaneous Notes Called patient and [...] Tabitha Madrid RN documented in this encounter [facility] 06-11-2022 Instructions Maykel Patel Jr., MD - 06/11/2022 11:52 AM EST Counseled patient on increasing fluids, avoiding salt, avoiding caffeine, avoiding large portions of animal fat/meats at one time and increasing citrates in diet. documented in this encounter [facility] 06-11-2022 Procedure note CYSTOSCOPY PROCEDURE NOTE: [...] Patel Jr, MD documented in this encounter [facility] 06-03-2022 Miscellaneous Notes Received voicemail 06-03-22 at 3:24 PM. Hi this is Shelley Davenport calling, [phone]. My birthday is [birth year]. I'm calling about my back. It's very very painful and I really need to have help with it. Thank you very much. Miguel A. Forwarded to Dr. Montelongo's clinical staff. JESSICA Nunes, RN June 03, 2022 4:27 PM documented in this encounter [facility] 05-29-2022 Miscellaneous Notes Pt added to schedule for stent removal. Will call when home from hospital to confirm. [facility] or 05/29/22 Cysto stent removal in office 1-2 weeks documented in this encounter [facility] 05-28-2022 Miscellaneous Notes OK, wonderful. Patient aware. Closing. Show up to surgery Patient calling and she was wanted to see what Urine Culture result from 05-26-2022 showed. Aware of this result: Culture No growth (<1,000 CFU/ml) Resulting Agency: [facility] I advised that Surgery still on for tomorrow and she just was checking to make sure. If she needs to do anything else please advise. documented in this encounter [facility] 05-12-2022 History of Present illness Narrative This note was created using [employer]. Subjective Miriam Davenport is a 82 year old female. Patient presents with: ER F/U SUBJECTIVE: Miriam Davenport is a 82 year old year old lady here today for [facility] follow up appointment for review of medical conditions for middle ring finger fracture. Finger needle loom tender. 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 documented in this encounter [facility] 05-06-2022 Miscellaneous Notes Seen in today. [...] any other symptoms? NO Protocols used: Finger [id number] documented in this encounter [facility] 05-06-2022 Instructions Janae Sandoval APRN.TRAINING AND DEVELOPMENT REP - 05/06/2022 4:12 PM EST ASSESSMENT/PLAN: 1. Crushing injury of right middle finger, initial encounter - ICD9: 927.3, ICD10: S67.192A (primary diagnosis) - XR DIGIT GENERAL 3V FRONTAL/LAT/OBL RIGHT Radiologist IMPRESSION: Acute, comminuted fracture of the third distal phalanx subungual tuft. Skein Yard Drier: KOLE Transcribe Date/Time: May 06 2022 4:13P [...] Discussed expected course of illness Janae Sandoval APRN.TRAINING AND DEVELOPMENT REP FRACTURES GENERAL INFORMATION: A fracture is a [...] wet, it can be dried with a mathematics academic chair. 4. Do not put pressure on [...] under the cast. 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 Skein Yard Drier: KOLE Transcribe Date/Time: May 06 2022 4:13P [...] Discussed expected course of illness Janae Sandoval APRN.TRAINING AND DEVELOPMENT REP documented in this encounter [facility] 05-04-2022 History of Present illness Narrative Patient presents for B-12 injection. Denies any problems at this time. Patient instructed on any SE of medication, verbalized understanding and agreed to proceed with treatment. Tolerated injection well. Ning Mckeon LPN documented in this encounter [facility] 04-29-2022 History of Present illness Narrative [facility] Date: April 29, 2022 - 8:24 AM Chief Complaint: left sided back pain __ SUBJECTIVE: Ms. Davenport presents to the [facility] for a follow up appointment [...] is currently receiving medications (tizanidine) through the [facility]. 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 1997 MORBID OBESITY 08/18/2007 Obstructive sleep apnea Sleep study 2002 Occlusion and stenosis of carotid artery without mention of cerebral infarction 03/09/06 mild stenosis shown on u/s at [facility] u/s repeated 02/02/07 with no change [...] polyps LIG/TRNSXJ FLP TUBE ABDL/VAG APPR UNI/BI 1969' Tubal ligation NSL/SINUS NDSC SPHENDT RMVL TISS [...] Panel: No results found for: UQCANN, UQBNZL, PJQ5AJO, UQAMPH, UQMAMP, UQBUPRE, UQNORBUP, UQMTHD, UQEDDP, UQTRAM, [...] record for those providers who practice within [facility] or with access to [employer] via MD Connect, or via letter. documented in this encounter [facility] 04-28-2022 History of Present illness Narrative PULM FUNCTION SMARTBLOCK: Provider: Guillaume Dominguez MD Assisting Tech: KELSI Carias Spirometry: 1 LV - Box: 1 documented in this encounter [facility] 04-27-2022 History of Present illness Narrative This note was created using HomeSphereriter. 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 1997 MORBID OBESITY 08/18/2007 Obstructive sleep apnea Sleep study 2003 Occlusion and stenosis of carotid artery without mention of cerebral infarction 03/09/06 mild stenosis shown on u/s at [facility] u/s repeated 02/02/07 with no change [...] Lymph 1.00 - 4.00 k/uL 2.06 1.82 Pitkin% % 8.2 7.7 Abs Pitkin <0.87 k/uL 0.81 0.81 Eosin% % 1.2 [...] to 39.9 in adult ([facility]) E66.01 Z68.39 Weight has trended down though up after gi.Keep up efforts at healthier diet and try to increase activity--planning to go to [place] for exercise 14. History of Jordin-en-Y gastric [...] Guillaume Dominguez MD documented in this encounter [facility] 04-10-2022 Miscellaneous Notes Called patient and scheduled. Patient left voicemail 04/09/2022 at 1257 Patient states she is S/P RFA 14 days and is still having significant pain This RN recommends patient to schedule follow up with Dr. Montelongo to discuss care Will forward to clerical team to assist with scheduling follow up with Dr. Montelongo documented in this encounter [facility] 04-08-2022 History of Present illness Narrative [...] 2022 12:24 PM documented in this encounter [facility] 04-06-2022 History of Present illness Narrative Patient presents for B-12 injection. Denies any problems at this time. Patient instructed on any SE of medication, verbalized understanding and agreed to proceed with treatment. Tolerated injection well. Ning Mckeon LPN documented in this encounter [facility] 03-27-2022 Miscellaneous Notes Handicap Placard mailed to pt. Marquita Mclaughlni LPN Rx sent, letter printed Patient has [...] Anne Jennings RN documented in this encounter [facility] 03-24-2022 Miscellaneous Notes Requester: Patient Patients [...] No need to notify patient. [id number] Isabel Brothers Pss documented in this encounter [facility] 03-19-2022 Miscellaneous Notes Called patient in regards to message below. Message was sent to patient via Elastra on 03/10/2022, but was not read. I [...] it use for documented in this encounter [facility] 03-11-2022 History of Present illness Narrative SUBJECTIVE: Miriam Davenport presents to [facility] for a follow [...] activity was identified. 03/11/2022 by Oralia Garcia APRN.TRAINING AND DEVELOPMENT REP Narcotic Agreement reviewed and signed?: N/A on [...] which included preparing to see the patient, [id number] patient care, completing clinical documentation, performing a medically appropriate examination, and ordering medications, tests, or procedures. The above plan and management options were discussed at length with patient. Patient is in agreement with the above and verbalized understanding. 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 1997 MORBID OBESITY 08/18/2007 Obstructive sleep apnea Sleep study 2003 Occlusion and stenosis of carotid artery without mention of cerebral infarction 03/09/06 mild stenosis shown on u/s at [facility] u/s repeated 02/02/07 with no change [...] which included preparing to see the patient, [id number] patient care, completing clinical documentation, obtaining and/or [...] Radha Walters MD documented in this encounter [facility] 03-02-2022 History of Present illness Narrative Patient presents for B-12 injection. Denies any problems at this time. Patient instructed on any SE of medication, verbalized understanding and agreed to proceed with treatment. Tolerated injection well. Pt to also receive COVID booster. Ning Mckeon LPN documented in this encounter [facility] 02-27-2022 Miscellaneous Notes Patient left voicemail 02/26/2022 Patient states that she had sacroiliac block with Dr. Montelongo on 02/17/2022 Patient states by the the evening of 02/20/2022, her pain was back Will need to obtain percentage of improvement during the time it was working as the local anesthetic wore of by the evening of 02/20/2022 documented in this encounter [facility] 02-16-2022 Miscellaneous Notes Patient contacted at this time Patient states she is having chest pain for the last 10 minutes or so. Similar to when she found out she had a blood clot last time Patient instructed to proceed to the ER Patient agrees and will be going to [facility] Patient to contact office if she needs to cancel procedure for tomorrow 02/17/2022 Patient called to report that she stopped taking Eliquis in preparation for her procedure tomorrow, but is now experiencing subtle chest pain. Transferred patient to triage nurse line. Also copying Dr. Montelongo and clinical staff to this encounter. Please advise, Awilda Tate documented in this encounter [facility] 02-10-2022 Instructions Guillaume Dominguez MD - [...] some veggies in. documented in this encounter [facility] 02-10-2022 History of Present illness Narrative This note was created using HomeSphereriter. 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 1997 MORBID OBESITY 08/18/2007 Obstructive sleep apnea Sleep study 2003 Occlusion and stenosis of carotid artery without mention of cerebral infarction 03/09/06 mild stenosis shown on u/s at [facility] u/s repeated 02/02/07 with no change [...] Lymph 1.00 - 4.00 k/uL 2.06 1.82 Pitkin% % 8.2 7.7 Abs Pitkin <0.87 k/uL 0.81 0.81 Eosin% % 1.2 [...] Guillaume Dominguez MD documented in this encounter [facility] 02-10-2022 History of Present illness Narrative Patient here for B12 injection and requested flu vaccine as well. Patient tolerated both injections. documented in this encounter [facility] 02-05-2022 Miscellaneous Notes Patient contacted via [...] as possible. Patient can be reached at [phone]. Thank you. Miriam Byrd documented in this encounter [facility] 02-04-2022 Miscellaneous Notes Patient notified Typically [...] Tabitha Madrid RN documented in this encounter [facility] 02-04-2022 Miscellaneous Notes Pt called back [...] 2022 9:45 AM documented in this encounter [facility] 01-29-2022 Miscellaneous Notes Patient scheduled for nurse visit 02/06/22 to receive B-[address]. [address] new administration order at this time. Ning Mckeon LPN documented in this encounter [facility] 01-19-2022 Instructions Comfort Patterson APRN.SURFACE BOSS - 01/19/2022 3:15 PM EDT Take one iron pill daily, take with food. 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 1997 MORBID OBESITY 08/18/2007 Obstructive sleep apnea Sleep study 2003 Occlusion and stenosis of carotid artery without mention of cerebral infarction 03/09/06 mild stenosis shown on u/s at [facility] u/s repeated 02/02/07 with no change [...] in dosing 5mg BID indefinitely Comfort Patterson APRN.SURFACE BOSS Medical Decision Making: Problems: Moderate: 1+ chronic illnesses with change Data: Unique test(s) ordered: 1 Risk: Moderate: Drug management Medical Decision Making Level: 4 - Moderate documented in this encounter [facility] 01-05-2022 History of Present illness Narrative Patient presents for B-12 injection. Denies any problems at this time. Patient instructed on any SE of medication, verbalized understanding and agreed to proceed with treatment. Tolerated injection well. Ning Mckeon LPN documented in this encounter [facility] 12-17-2021 Instructions Sasha Hurley APRN.TRAINING AND DEVELOPMENT REP - 12/17/2021 2:27 PM EDT keflex for 7 days Tylenol/ibuprofen as needed for discomfort AZO otc Increase hydration -Follow up with PCP or return to clinic if symptoms not improving in 3 days or if you develop any new (or worsening) symptoms such as fever, chills or back pain go to ER. documented in this encounter [facility] 12-17-2021 History of Present illness Narrative Subjective The history is provided by the patient. No educational sign language interpreter was used. 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 1997 MORBID OBESITY 08/18/2007 Obstructive sleep apnea Sleep study 2003 Occlusion and stenosis of carotid artery without mention of cerebral infarction 03/09/06 mild stenosis shown on u/s at [facility] u/s repeated 02/02/07 with no change Pure hypercholesterolemia Type II or unspecified type diabetes mellitus with renal manifestations, uncontrolled(250.42) Unspecified glaucoma(365.9) Unspecified pruritic disorder I have confirmed and edited as necessary, the PSYCHIATRIC Review of Systems Constitutional: Negative for chills [...] 4 - Moderate documented in this encounter [facility] 12-15-2021 Miscellaneous Notes Patient notified of [...] Marquita Mclaughlin LPN documented in this encounter [facility] 12-04-2021 Miscellaneous Notes Patient returning call from [facility], is requesting a call back at [phone]. Patient states she will not be home [...] Isabel Orlando RN documented in this encounter [facility] 11-03-2021 History of Present illness Narrative Patient presents for B-12 injection. Denies any problems at this time. Patient instructed on any SE of medication, verbalized understanding and agreed to proceed with treatment. Tolerated injection well. Ning Mckeon LPN documented in this encounter [facility] 11-03-2021 Nurse Note EVENT MONITOR DISPOSABLE PATCH INSTRUCTIONS Patient Name: Miriam Davenport [facility] Number: [id number] Skin prepped and cleansed with alcohol Patch secured to prepped area Monitor Activated Serial #: [id number] Patient Instructed: 1.) Prescribed order timeframe 2.) Bathing guidelines 3.) Usage of event button and diary documentation 4.) Return of monitor at the end of prescribed order 5.) Call with problems [phone] or [phone] ext. [phone] Patient expresses a good understanding of instructions Gifty Singh documented in this encounter [facility] 11-03-2021 History of Present illness Narrative [...] going to sit on the toilet. Landed nursing home on the toilet and scraped her left [...] y/o referred to the EP clinic at [place] for frequent PACs. Patient presents with no complaints. There is a report of significant FIELD - however the patient attributes this to her weight and lack of conditioning. She is unaware of the SVE. Review of her EKGs available in [facility] suggests frequent SVE developed around 2019 - [...] may have occurred. Gamaliel Alegre MD Pager: [phone] Office: [phone] I personally examined the patient and repeated [...] medical regimen Referring Physician: Guillaume Dominguez [address] [place] [address] Comfort Patterson [address] [facility] [place] [address] documented in this encounter [facility] 10-22-2021 Miscellaneous Notes Okayed MALGORZATA: 10/03/2021 [...] patient. Marline Milton documented in this encounter [facility] 10-22-2021 Miscellaneous Notes Okayed MALGORZATA: 10/03/2021 [...] Liz Frank Pss documented in this encounter [facility] 10-08-2021 Miscellaneous Notes Echo scheduled for 10/13/21. Cardio appt 11/03/21. Kandy Brady Ma Patient returned call and went over notes from Dr Soto and Comfort Patterson CATTLE SORTER with understanding. Patient wrote down instructions, she had already stopped the iron some time ago. Assisted with transfer to appointment scheduler to get Cardiology consult and ECHO set [...] labs still pending. documented in this encounter [facility] 10-07-2021 Miscellaneous Notes Called and spoke with patient. Scheduled with Dr Montelongo on 10/24/21. Patient left voicemail stating she is experiencing severe pain with her back and hip. Patient states it is hard for her to function. Patient has not been seen in office since 09/16/2020 Recommend follow up with provider documented in this encounter [facility] 10-06-2021 Miscellaneous Notes seen by Dr [...] Ellie Downing LPN documented in this encounter [facility] 10-03-2021 History of Present illness Narrative [...] 2021 4:15 PM documented in this encounter [facility] 10-03-2021 History of Present illness Narrative [...] going to sit on the toilet. 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 1997 MORBID OBESITY 08/18/2007 Obstructive sleep apnea Sleep study 2002 Occlusion and stenosis of carotid artery without mention of cerebral infarction 03/09/06 mild stenosis shown on u/s at [facility] u/s repeated 02/02/07 with no change [...] 119/75 75 -- -- Supine -- -- 10/03/212 -- -- 126/68 60 -- -- -- [...] Iban Soto MD documented in this encounter [facility] 09-22-2021 Miscellaneous Notes Addended by: JOSE GORDON on: 09/22/2021 11:10 AM Modules accepted: Orders Patient has been identified by name and date of : Yes Pending Prescriptions Disp Refills GABAPENTIN 300 MG CAPSULE 90 capsule 11 Sig: one in morning, two at bedtime LISSA: No RX INSTRUCTIONS: Patient aware RX will be sent to pharmacy. No need to notify patient. [facility] [phone] Jose Gordon documented in this encounter [facility] 09-22-2021 Miscellaneous Notes Patient has been [...] Tabitha Monet RN documented in this encounter [facility] 09-01-2021 History of Present illness Narrative Patient presents for B-12 injection. Denies any problems at this time. Patient instructed on any SE of medication, verbalized understanding and agreed to proceed with treatment. Tolerated injection well. Ning Mckeon LPN documented in this encounter [facility] 08-22-2021 Instructions Curtis Nassar MD - 08/22/2021 2:55 PM EDT Assessment / Plan Assessment: 1) Diabetes type 2, sugars going low before lunch after taking 8mg glimepiride in AM. I'll ask her to drop to 4, 2, 1mg then stop all based on if sugars <100. 2) Peripheral neuropathy, hasn't been bothering her as much, is on [id number], 1 in AM, 2 in PM. I [...] Curtis Nassar MD documented in this encounter [facility] 08-22-2021 Nurse Note Images from the original note were not included. documented in this encounter [facility] 08-22-2021 History of Present illness Narrative Assessment / Plan Assessment: 1) Diabetes type 2, sugars going low before lunch after taking 8mg glimepiride in AM. I'll ask her to drop to 4, 2, 1mg then stop all based on if sugars <100. 2) Peripheral neuropathy, hasn't been bothering her as much, is on [id number], 1 in AM, 2 in PM. 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 Tape [Other] documented in this encounter [facility] 01-05-2019 History of Past i llness [...] of this encounter (statuses as of 08/22/2021) [facility] History of Past illness Narrative* Problem [...] of this encounter (statuses as of 09/01/2021) [facility] History of Past illness Narrative* Problem [...] of this encounter (statuses as of 09/22/2021) [facility] of Past [facility] Narrative* Problem [...] of this encounter (statuses as of 10/06/2021) [facility] History of Past [facility] Narrative* Problem [...] of this encounter (statuses as of 10/07/2021) [facility] of Past illness Narrative* Problem [...] of this encounter (statuses as of 10/08/2021) [facility] of Past [facility] Narrative* Problem [...] of this encounter (statuses as of 10/09/2021) [facility] of Past [facility] Narrative* Problem [...] of this encounter (statuses as of 10/22/2021) [facility] History of Past illness Narrative* Problem [...] of this encounter (statuses as of 10/22/2021) [facility] of Past [facility] Narrative* Problem [...] of this encounter (statuses as of 10/30/2021) [facility] of [facility] Narrative* Problem [...] of this encounter (statuses as of 11/03/2021) [facility] of Past [facility] Narrative* Problem [...] of this encounter (statuses as of 11/03/2021) [facility] of Past [facility] Narrative* Problem [...] of this encounter (statuses as of 12/04/2021) [facility] of Past [facility] Narrative* Problem [...] of this encounter (statuses as of 12/05/2021) [facility] of [facility] Narrative* Problem [...] of this encounter (statuses as of 12/15/2021) [facility] of [facility] Narrative* Problem [...] of this encounter (statuses as of 12/17/2021) [facility] of [facility] Narrative* Problem [...] of this encounter (statuses as of 01/05/2022) [facility] of [facility] Narrative* Problem [...] of this encounter (statuses as of 01/05/2022) [facility] of [facility] Narrative* Problem [...] of this encounter (statuses as of 01/12/2022) [facility] of [facility] Narrative* Problem [...] of this encounter (statuses as of 01/19/2022) [facility] of [facility] Narrative* Problem [...] of this encounter (statuses as of 01/29/2022) [facility] of [facility] Narrative* Problem [...] of this encounter (statuses as of 02/04/2022) [facility] of Past [facility] Narrative* Problem [...] of this encounter (statuses as of 02/04/2022) [facility] of Past [facility] Narrative* Problem [...] of this encounter (statuses as of 02/05/2022) [facility] of Past [facility] Narrative* Problem [...] of this encounter (statuses as of 02/10/2022) [facility] Narrative* Problem [...] of this encounter (statuses as of 02/10/2022) [facility] Narrative* Problem [...] of this encounter (statuses as of 02/16/2022) [facility] Narrative* Problem [...] of this encounter (statuses as of 02/27/2022) [facility] Narrative* Problem [...] of this encounter (statuses as of 03/02/2022) [facility] Narrative* Problem [...] of this encounter (statuses as of 03/10/2022) [facility] Narrative* Problem [...] of this encounter (statuses as of 03/11/2022) [facility] of Past [facility] Narrative* Problem [...] of this encounter (statuses as of 03/12/2022) [facility] Narrative* Problem [...] of this encounter (statuses as of 03/19/2022) [facility] [facility] Problem [...] of this encounter (statuses as of 03/23/2022) [facility] History of Past illness Narrative* Problem [...] of this encounter (statuses as of 03/25/2022) [facility] History of Past illness Narrative* Problem [...] of this encounter (statuses as of 03/26/2022) [facility] History [facility] Past illness Narrative* Problem [...] of this encounter (statuses as of 03/27/2022) [facility] Past [facility] Narrative* Problem [...] of this encounter (statuses as of 04/06/2022) [facility]* Problem [...] of this encounter (statuses as of 04/10/2022) [facility] Past [facility] Narrative* Problem [...] of this encounter (statuses as of 04/27/2022) [facility] Past [facility] Narrative* Problem [...] of this encounter (statuses as of 04/28/2022) [facility] Past [facility] Narrative* Problem [...] of this encounter (statuses as of 04/29/2022) [facility] Past [facility] Narrative* Problem [...] of this encounter (statuses as of 05/04/2022) [facility] Past [facility] Narrative* Problem [...] of this encounter (statuses as of 05/06/2022) [facility] Past [facility] Narrative* Problem [...] of this encounter (statuses as of 05/06/2022) [facility] Past [facility] Narrative* Problem [...] of this encounter (statuses as of 05/07/2022) [facility] Past [facility] Narrative* Problem [...] of this encounter (statuses as of 05/22/2022) [facility] Past [facility] Narrative* Problem [...] of this encounter (statuses as of 06/03/2022) [facility] Past [facility] Narrative* Problem [...] of this encounter (statuses as of 06/03/2022) [facility]* Problem [...] of this encounter (statuses as of 06/05/2022) [facility] Past [facility] Narrative* Problem [...] of this encounter (statuses as of 06/05/2022) [facility] Past [facility] Narrative* Problem [...] of this encounter (statuses as of 06/11/2022) [facility] Past [facility] Narrative* Problem [...] of this encounter (statuses as of 06/11/2022) [facility] Past [facility] Narrative* Problem [...] of this encounter (statuses as of 06/15/2022) [facility]* Problem [...] of this encounter (statuses as of 06/18/2022) [facility] Past [facility] Narrative* Problem [...] of this encounter (statuses as of 06/18/2022) [facility] Past [facility] Narrative* Problem [...] of this encounter (statuses as of 06/23/2022) [facility] Past [facility] Narrative* Problem [...] of this encounter (statuses as of 07/02/2022) [facility]* Problem [...] of this encounter (statuses as of 07/07/2022) [facility]* Problem [...] of this encounter (statuses as of 08/03/2022) [facility]arrative* Problem [...] of this encounter (statuses as of 08/04/2022) [facility]* Problem [...] of this encounter (statuses as of 08/04/2022) [facility]ative* Problem [...] of this encounter (statuses as of 08/04/2022) [facility]arrative* Problem [...] of this encounter (statuses as of 08/08/2022) [facility] Past [facility] Narrative* Problem [...] of this encounter (statuses as of 08/12/2022) [facility]* Problem [...] of this encounter (statuses as of 08/19/2022) [facility]* Problem [...] of this encounter (statuses as of 08/26/2022) [facility] Past [facility]arrative* Problem [...] of this encounter (statuses as of 08/26/2022) [facility] Past [facility]arrative* Problem [...] of this encounter (statuses as of 09/01/2022) [facility] Past [facility]arrative* Problem [...] of this encounter (statuses as of 09/01/2022) [facility] Past [facility] Narrative* Problem [...] of this encounter (statuses as of 09/03/2022) [facility] Past [facility] Narrative* Problem [...] of this encounter (statuses as of 09/11/2022) [facility] Past [facility]arrative* Problem [...] of this encounter (statuses as of 09/12/2022) [facility] Past [facility] Narrative* Problem [...] of this encounter (statuses as of 09/14/2022) [facility] Past [facility] Narrative* Problem [...] of this encounter (statuses as of 09/18/2022) [facility] Past [facility] Narrative* Problem [...] of this encounter (statuses as of 09/18/2022) [facility]arrative* Problem [...] of this encounter (statuses as of 09/23/2022) [facility] Past [facility]arrative* Problem [...] of this encounter (statuses as of 09/26/2022) [facility] Past [facility] Narrative* Problem [...] of this encounter (statuses as of 09/26/2022) [facility] Past [facility] Narrative* Problem [...] of this encounter (statuses as of 09/29/2022) [facility] Past [facility]arrative* Problem [...] of this encounter (statuses as of 10/02/2022) [facility] Past [facility]arrative* Problem [...] of this encounter (statuses as of 10/12/2022) [facility] Past [facility]arrative* Problem [...] of this encounter (statuses as of 10/12/2022) [facility] Past [facility]ative* Problem [...] of this encounter (statuses as of 10/28/2022) [facility] Past [facility]arrative* Problem [...] of this encounter (statuses as of 11/06/2022) [facility] Past [facility] Narrative* Problem [...] of this encounter (statuses as of 11/03/2022) [facility] Past [facility] Narrative* Problem [...] of this encounter (statuses as of 11/04/2022) [facility] Past [facility] Narrative* Problem [...] of this encounter (statuses as of 12/05/2022) [facility] Past [facility] Narrative* Problem [...] of this encounter (statuses as of 12/25/2022) [facility] Past [facility] Narrative* Problem [...] of this encounter (statuses as of 12/30/2022) [facility] Past [facility] Narrative* Problem [...] of this encounter (statuses as of 01/04/2023) [facility] Past [facility] Narrative* Problem [...] of this encounter (statuses as of 01/09/2023) [facility] Past [facility]arrative* Problem [...] of this encounter (statuses as of 01/11/2023) [facility] Past [facility] Narrative* Problem [...] of this encounter (statuses as of 01/14/2023) [facility] Past [facility]arrative* Problem [...] of this encounter (statuses as of 01/27/2023) [facility] Past [facility]arrative* Problem [...] of this encounter (statuses as of 01/29/2023) [facility] Past [facility]arrative* Problem [...] of this encounter (statuses as of 01/29/2023) [facility]arrative* Problem [...] of this encounter (statuses as of 02/02/2023) [facility] Past [facility]arrative* Problem [...] of this encounter (statuses as of 02/03/2023) [facility]* Problem [...] of this encounter (statuses as of 02/04/2023) [facility] Past [facility]arrative* Problem [...] of this encounter (statuses as of 02/20/2023) [facility] Past [facility] Narrative* Problem [...] of this encounter (statuses as of 03/06/2023) [facility] Past [facility]arrative* Problem [...] of this encounter (statuses as of 03/18/2023) [facility] Past [facility]arrative* Problem [...] of this encounter (statuses as of 03/30/2023) [facility] Past [facility]arrative* Problem [...] of this encounter (statuses as of 04/03/2023) [facility] Past [facility]arrative* Problem [...] of this encounter (statuses as of 05/04/2023) [facility] Past [facility] Narrative* Problem [...] of this encounter (statuses as of 05/14/2023) [facility] Past [facility]arrative* Problem [...] of this encounter (statuses as of 06/27/2023) [facility] Past [facility] Narrative* Problem [...] of this encounter (statuses as of 07/07/2023) [facility] Past [facility]arrative* Problem [...] of this encounter (statuses as of 07/07/2023) [facility] Past [facility]arr[facility]* Problem [...] of this encounter (statuses as of 07/09/2023) [facility] Past [facility] Narrative* Problem [...] of this encounter (statuses as of 07/22/2023) [facility] Past [facility] Narrative* Problem [...] of this encounter (statuses as of 07/22/2023) [facility] Past [facility] Narrative* Problem [...] of this encounter (statuses as of 08/02/2023) [facility] Past [facility] Narrative* Problem [...] of this encounter (statuses as of 08/11/2023) [facility] Past [facility]arrative* Problem [...] of this encounter (statuses as of 08/12/2023) [facility] Past [facility] Narrative* Problem [...] of this encounter (statuses as of 08/13/2023) [facility] Past [facility] Narrative* Problem [...] of this encounter (statuses as of 08/13/2023) [facility] Past [facility] Narrative* Problem [...] of this encounter (statuses as of 08/16/2023) [facility] Past [facility] Narrative* Problem [...] of this encounter (statuses as of 08/16/2023) [facility] Past [facility] Narrative* Problem [...] of this encounter (statuses as of 09/06/2023) [facility] Past [facility] Narrative* Problem [...] of this encounter (statuses as of 09/17/2023) [facility] Diagnosis 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), 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, not stated as uncontrolled Radiculopathy of thoracic region Thoracic or lumbosacral neuritis or radiculitis, unspecified [facility] Diagnosis Pernicious anemia- Primary [facility] Diagnosis Radiculopathy of thoracic region Thoracic or lumbosacral neuritis or radiculitis, unspecified [facility] Shortness of breath on exertion- Primary Shortness of breath Irregular heart beat Cardiac dysrhythmia, unspecified Fatigue, unspecified type Elevated ferritin Other abnormal blood chemistry [facility] Diagnosis Irregular heart beat- Primary Cardiac dysrhythmia, unspecified Shortness of breath on exertion Shortness of breath Fatigue, unspecified type Skin tear of left forearm without complication, initial encounter Lightheadedness Dizziness and giddiness [facility] Diagnosis 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 [facility] Diagnosis Chronic left SI joint pain- Primary Disorders of sacrum Sacroiliac joint pain Disorders of sacrum SI joint arthritis Sacroiliitis, not elsewhere classified Chronic left SI joint pain Disorders of sacrum Sacroiliac joint pain Disorders of sacrum SI joint arthritis Sacroiliitis, not elsewhere classified [facility] Diagnosis Dyspnea on exertion- Primary Other dyspnea and respiratory abnormality Chronic left SI joint pain Disorders of sacrum Sacroiliac joint pain Disorders of sacrum SI joint arthritis Sacroiliitis, not elsewhere classified [facility] Diagnosis Pernicious anemia- Primary Chronic left SI joint pain Disorders of sacrum Sacroiliac joint pain Disorders of sacrum SI joint arthritis Sacroiliitis, not elsewhere classified [facility] Diagnosis Acute UTI- Primary Urinary tract infection, site not specified Urinary frequency Glucosuria Glycosuria [facility] Diagnosis Elevated ferritin- Primary Other abnormal blood chemistry [facility] Diagnosis Pernicious anemia- Primary [facility] Diagnosis Chronic left SI joint pain- Primary Disorders of sacrum Sacroiliac joint pain Disorders of sacrum SI joint arthritis Sacroiliitis, not elsewhere classified Chronic SI joint pain Disorders of sacrum [facility] Diagnosis Fatigue, unspecified type- Primary Iron deficiency Iron deficiency anemia, unspecified Chronic left SI joint pain Disorders of sacrum Sacroiliac joint pain Disorders of sacrum SI joint arthritis Sacroiliitis, not elsewhere classified [facility] Diagnosis B12 deficiency- Primary Other B-complex deficiencies Chronic left SI joint pain Disorders of sacrum Sacroiliac joint pain Disorders of sacrum SI joint arthritis Sacroiliitis, not elsewhere classified [facility] Diagnosis Iron deficiency- Primary Iron deficiency anemia, unspecified [facility] Diagnosis Chronic left SI joint pain- Primary Disorders of sacrum Sacroiliac joint pain Disorders of sacrum SI joint arthritis Sacroiliitis, not elsewhere classified Chronic left SI joint pain Disorders of sacrum Sacroiliac joint pain Disorders of sacrum SI joint arthritis Sacroiliitis, not elsewhere classified [facility] Diagnosis Need for influenza vaccination- Primary Need for prophylactic vaccination and inoculation against influenza Pernicious anemia Chronic left SI joint pain Disorders of sacrum Sacroiliac joint pain Disorders of sacrum SI joint arthritis Sacroiliitis, not elsewhere classified [facility] this encounter [facility] noteNo assessment information availableWRegency Hospital Company Work Phone: Evaluation note* Diagnosis Pernicious anemia- Primary Need for vaccination Need for prophylactic vaccination and inoculation against unspecified single disease [facility] Diagnosis Chronic left SI joint pain- Primary Disorders of sacrum [facility] Diagnosis Chronic left SI joint pain- Primary Disorders of sacrum Sacroiliac joint pain Disorders of sacrum Chronic left SI joint pain Disorders of sacrum Sacroiliac joint pain Disorders of sacrum 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 Disorders of sacrum Sacroiliac joint pain Disorders of sacrum [facility] Diagnosis Radiculopathy of thoracic region Thoracic or lumbosacral neuritis or radiculitis, unspecified Chronic left SI joint pain Disorders of sacrum Sacroiliac joint pain Disorders of sacrum [facility] Fatigue, unspecified type- Primary Primary hypertension Unspecified essential hypertension Hypoalbuminemia Other disorders of plasma protein metabolism Dietary iron deficiency without anemia Other nutritional deficiency Elevated ferritin Other abnormal blood chemistry Class 3 severe obesity due to excess calories with body mass index (BMI) of 40.0 to 44.9 in adult, unspecified whether serious comorbidity present (HCC) documented [facility] Diagnosis Iron deficiency Iron deficiency anemia, unspecified [facility] Diagnosis Pernicious anemia- Primary [facility] Diagnosis FIELD (dyspnea on exertion)- Primary Other dyspnea and respiratory abnormality Dietary iron deficiency without anemia Other nutritional deficiency Grade I diastolic dysfunction Chronic cough Cough Renal calculus, left Calculus of kidney Primary hypertension Unspecified essential hypertension Hypoalbuminemia Other disorders of plasma protein metabolism DM (diabetes mellitus), type 2 with neurological complications ([facility]) Type II or unspecified type diabetes [...] Calculus of kidney [facility] Diagnosis FIELD (dyspnea on exertion) Other dyspnea and respiratory abnormality Chronic cough Cough Renal calculus, left Calculus of kidney [facility] Diagnosis FIELD (dyspnea on exertion) Other dyspnea and respiratory abnormality Chronic cough Cough Renal calculus, left Calculus of kidney [facility] Diagnosis Lumbosacral facet joint syndrome- Primary Other symptoms referable to back Spondylolisthesis of lumbar region Acquired spondylolisthesis Spinal stenosis of lumbar region, unspecified whether neurogenic claudication present Renal calculus, left Calculus of kidney [facility] Diagnosis Pernicious anemia- Primary Renal calculus, left Calculus of kidney [facility] Diagnosis Crushing injury of right middle finger, initial encounter- Primary Open fracture of tuft of distal phalanx of finger Open fracture of distal phalanx or phalanges of hand Nausea Nausea alone Renal calculus, left Calculus of kidney [facility] Diagnosis Finger injury, right, initial encounter- Primary Renal calculus, left Calculus of kidney [facility] Diagnosis Spinal stenosis of lumbar region, [...] [facility] Diagnosis Kidney stone- Primary Calculus of kidney Spinal stenosis of lumbar region, unspecified whether neurogenic claudication present Lumbar spondylosis Lumbosacral spondylosis without myelopathy Radiculopathy, lumbar region Thoracic or lumbosacral neuritis or radiculitis, unspecified Spondylolisthesis of lumbar region Acquired spondylolisthesis documented [facility] Diagnosis Crushing injury of right middle finger, sequela- Primary Renal calculus, left Calculus of kidney Spinal stenosis of lumbar region, unspecified whether neurogenic claudication present Lumbar spondylosis Lumbosacral spondylosis without myelopathy Radiculopathy, lumbar region Thoracic or lumbosacral neuritis or radiculitis, unspecified Spondylolisthesis of lumbar region Acquired spondylolisthesis documented [facility] this [facility] Diagnosis Dysuria- Primary Spinal stenosis of lumbar region, unspecified whether neurogenic claudication present Lumbar spondylosis Lumbosacral spondylosis without myelopathy Radiculopathy, lumbar region Thoracic or lumbosacral neuritis or radiculitis, unspecified Spondylolisthesis of lumbar region Acquired spondylolisthesis documented in this [facility] Diagnosis Pernicious anemia- Primary Spinal stenosis of lumbar region, unspecified whether neurogenic claudication present Lumbar spondylosis Lumbosacral spondylosis without myelopathy Radiculopathy, lumbar region Thoracic or lumbosacral neuritis or radiculitis, unspecified Spondylolisthesis of lumbar region Acquired spondylolisthesis documented in this encounter [facility]* Diagnosis Spondylolisthesis of lumbar region Acquired spondylolisthesis Open compression fracture of L1 lumbar vertebra with routine healing, subsequent encounter Anxiety disorder, unspecified type documented [facility] this encounter [facility] Diagnosis Spinal stenosis of lumbar region, unspecified whether neurogenic claudication present- Primary Lumbar spondylosis Lumbosacral spondylosis without myelopathy Radiculopathy, lumbar region Thoracic or lumbosacral neuritis or radiculitis, unspecified Spondylolisthesis of lumbar region Acquired spondylolisthesis documented [facility] this encounter [facility] Diagnosis Pernicious anemia- Primary [facility] Diagnosis DM (diabetes mellitus), 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, not stated as uncontrolled [facility] Diagnosis Spinal stenosis of lumbar region, unspecified whether neurogenic claudication present Lumbar spondylosis Lumbosacral spondylosis without myelopathy Radiculopathy, lumbar region Thoracic or lumbosacral neuritis or radiculitis, unspecified Spondylolisthesis of lumbar region Acquired spondylolisthesis [facility] Diagnosis Irregular heart rhythm- Primary Cardiac [...] deficiencies Other fatigue [facility] Diagnosis Pernicious anemia- Primary [facility] Diagnosis Spinal stenosis of lumbar region, unspecified whether neurogenic claudication present- Primary Lumbar spondylosis Lumbosacral spondylosis without myelopathy Spondylolisthesis of lumbar region Acquired spondylolisthesis Radiculopathy, lumbar region Thoracic or lumbosacral neuritis or radiculitis, unspecified [facility] Diagnosis Spinal stenosis of lumbar region, unspecified whether neurogenic claudication present- Primary Lumbar spondylosis Lumbosacral spondylosis without myelopathy Spondylolisthesis of lumbar region Acquired spondylolisthesis Radiculopathy, lumbar region Thoracic or lumbosacral neuritis or radiculitis, unspecified [facility] Diagnosis Spinal stenosis of lumbar region, unspecified whether neurogenic claudication present- Primary Lumbar spondylosis Lumbosacral spondylosis without myelopathy Spondylolisthesis of lumbar region Acquired spondylolisthesis Radiculopathy, lumbar region Thoracic or lumbosacral neuritis or radiculitis, unspecified documented in this encounter [facility] note* Diagnosis Spondylolisthesis of lumbar region- Primary Acquired spondylolisthesis Chronic SI joint pain Disorders of sacrum Spinal stenosis of lumbar region, unspecified whether neurogenic claudication present Pain in left hip Pain in joint, pelvic region and thigh Radiculopathy, lumbar region Thoracic or lumbosacral neuritis or radiculitis, unspecified documented in this encounter [facility] note* Diagnosis Spondylolisthesis of lumbar region- Primary Acquired spondylolisthesis Spinal stenosis of lumbar region, unspecified whether neurogenic claudication present Radiculopathy, lumbar region Thoracic or lumbosacral neuritis or radiculitis, unspecified Spondylolisthesis of lumbar region Acquired spondylolisthesis Spinal stenosis of lumbar region, unspecified whether neurogenic claudication present Radiculopathy, lumbar region Thoracic or lumbosacral neuritis or radiculitis, unspecified documented in this encounter [facility] note* Diagnosis Spinal stenosis of lumbar region, [...] or radiculitis, unspecified documented in this encounter [facility] note* Diagnosis Radiculopathy of thoracic region Thoracic or lumbosacral neuritis or radiculitis, unspecified Spondylolisthesis of lumbar region Acquired spondylolisthesis Spinal stenosis of lumbar region, unspecified whether neurogenic claudication present Radiculopathy, lumbar region Thoracic or lumbosacral neuritis or radiculitis, unspecified documented in this encounter [facility] note* Diagnosis Pernicious anemia- Primary Spondylolisthesis of lumbar region Acquired spondylolisthesis Spinal stenosis of lumbar region, unspecified whether neurogenic claudication present Radiculopathy, lumbar region Thoracic or lumbosacral neuritis or radiculitis, unspecified documented in this encounter [facility] note* Diagnosis Spinal stenosis of lumbar region, unspecified whether neurogenic claudication present- Primary Lumbar spondylosis Lumbosacral spondylosis without myelopathy Spondylolisthesis of lumbar region Acquired spondylolisthesis Radiculopathy, lumbar region Thoracic or lumbosacral neuritis or radiculitis, unspecified [facility] Diagnosis Current moderate episode of major depressive disorder, unspecified whether recurrent (HCC)- Primary Anxiety disorder, unspecified type Radiculopathy, lumbar region Thoracic or lumbosacral neuritis or radiculitis, unspecified Chronic SI joint pain Disorders of sacrum Single subsegmental pulmonary embolism without acute cor pulmonale (HCC) Type 2 diabetes mellitus with peripheral neuropathy (HCC) documented in this encounter [facility] note* Diagnosis Spinal stenosis of lumbar region, unspecified whether neurogenic claudication present- Primary Lumbar spondylosis Lumbosacral spondylosis without myelopathy Spondylolisthesis of lumbar region Acquired spondylolisthesis Radiculopathy, lumbar region Thoracic or lumbosacral neuritis or radiculitis, unspecified documented in this encounter [facility] note* Diagnosis Pernicious anemia- Primary documented in this encounter [facility] note* Diagnosis 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 documented in this encounter [facility] note* Diagnosis DM (diabetes mellitus), 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 Type II or unspecified type diabetes mellitus with neurological manifestations, not stated as uncontrolled Type 2 diabetes mellitus with peripheral neuropathy (HCC) documented in this encounter [facility] note* Diagnosis Pernicious anemia- Primary documented in this encounter [facility] note* Diagnosis 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 documented in this encounter [facility] note* Diagnosis FIELD (dyspnea on exertion)- Primary Other dyspnea and respiratory abnormality Irregular heart rhythm Cardiac dysrhythmia, unspecified Premature atrial complexes Supraventricular premature beats PAC (premature atrial contraction) Supraventricular premature beats Mixed hyperlipidemia Carotid artery stenosis without cerebral infarction, bilateral Type 2 diabetes mellitus with peripheral neuropathy (HCC) Atypical chest pain Other chest pain [facility] Diagnosis Irregular heart rhythm Cardiac dysrhythmia, unspecified FIELD (dyspnea on exertion) Other dyspnea and respiratory abnormality Premature atrial complexes Supraventricular premature beats PAC (premature atrial contraction) Supraventricular premature beats Mixed hyperlipidemia Carotid artery stenosis without cerebral infarction, bilateral Type 2 diabetes mellitus with peripheral neuropathy (HCC) Atypical chest pain Other chest pain [facility] Diagnosis Pernicious anemia- Primary [facility] Diagnosis Hypotension due to drugs- Primary Other iatrogenic hypotension Chronic fatigue Other malaise and fatigue Memory deficit Memory loss Obesity, Class II, BMI 35-39.9 Obesity, unspecified Need for influenza vaccination Need for prophylactic vaccination and inoculation against influenza Encounter for therapeutic drug monitoring Type 2 diabetes mellitus with peripheral neuropathy (HCC) Mixed hyperlipidemia [facility] Diagnosis Pernicious anemia- Primary [facility]* Diagnosis 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[facility] Diagnosis Pernicious anemia- Primary [facility]* Diagnosis 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 [facility] Diagnosis Kidney stone Calculus of kidney [facility]* Diagnosis Memory difficulties- Primary Memory loss Vitamin D deficiency Unspecified vitamin D deficiency Chronic cough Cough Type 2 diabetes mellitus with peripheral neuropathy (HCC) Breast cancer screening by mammogram Encounter for immunization Need for other specified prophylactic vaccination against single bacterial disease [facility] Diagnosis Dyspnea on exertion- Primary Other dyspnea and respiratory abnormality Premature atrial complexes Supraventricular premature beats Type 2 diabetes mellitus with peripheral neuropathy (HCC) Multiple subsegmental pulmonary emboli without acute cor pulmonale (HCC) ASIM (obstructive sleep apnea) Obstructive sleep apnea (adult) (pediatric) documented [facility]* Diagnosis Abnormal mammogram- Primary Abnormal mammogram, unspecified [facility]* Diagnosis 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, without long-term current use of insulin (HCC)- Primary Class 1 obesity due to excess calories with serious comorbidity and body mass index (BMI) of 34.0 to 34.9 in adult documented [facility]* Diagnosis Abnormal mammogram Abnormal mammogram, unspecified documented [facility] this [facility] Diagnosis Abnormal mammogram Abnormal mammogram, unspecified documented in this encounter [facility] note* Diagnosis Pernicious anemia- Primary documented 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* Diagnosis Current moderate episode of major [...] therapeutic drug monitoring documented in this encounter [facility] note* Diagnosis Pernicious anemia- Primary documented [facility] this [facility]* Diagnosis 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, without long-term current use of insulin (HCC)- Primary documented in this [facility]* Diagnosis Pernicious anemia- Primary [facility]* Diagnosis 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, without long-term current use of insulin (HCC)- Primary Class 1 obesity due to excess calories with serious comorbidity and body mass index (BMI) of 34.0 to 34.9 in adult [facility]* Diagnosis Uncontrolled type 2 diabetes mellitus [...] bilateral documented in this [facility]* Diagnosis Cognitive impairment- Primary Unspecified persistent [...] use of medication [facility] Diagnosis Type 2 diabetes mellitus with peripheral neuropathy (HCC) documented in this [facility]* Diagnosis Acute pain of right knee- Primary documented in this [facility]* Diagnosis Acute pain of right knee [facility] Diagnosis UTI symptoms- Primary Other symptoms involving urinary system [facility] Diagnosis Vulvovaginal pain- Primary Unspecified [...] Calculus of kidney documented in this encounter [facility] note* Diagnosis Vulvovaginal pain- Primary Unspecified symptom [...] (BMI) of 38.0 to 38.9 in adult ([facility]) Crushing injury of right middle finger, initial encounter documented in this encounter [facility] note* Diagnosis Vulvovaginal pain- Primary Unspecified symptom [...] (BMI) of 38.0 to 38.9 in adult ([facility]) Shortness of breath on exertion Shortness of breath documented in this encounter [facility] note* Diagnosis Vulvovaginal pain- Primary Unspecified symptom [...] or radiculitis, unspecified documented in this encounter [facility] note* Diagnosis Vulvovaginal pain- Primary Unspecified symptom [...] (BMI) of 38.0 to 38.9 in adult ([facility]) Lumbar spondylosis- Primary Lumbosacral spondylosis without myelopathy Radiculopathy, lumbar region Thoracic or lumbosacral neuritis or radiculitis, unspecified Lumbar spondylosis Lumbosacral spondylosis without myelopathy Spondylolisthesis of lumbar region Acquired spondylolisthesis Radiculopathy, lumbar region Thoracic or lumbosacral neuritis or radiculitis, unspecified [facility] Diagnosis Vulvovaginal pain- Primary Unspecified [...] subsegmental pulmonary emboli without acute cor pulmonale ([facility]) Atypical chest pain Other chest pain Hyperlipidemia, unspecified hyperlipidemia type DM (diabetes mellitus), type 2 with neurological complications ([facility]) Type II or unspecified type diabetes [...] (BMI) of 38.0 to 38.9 in adult ([facility]) Type 2 diabetes mellitus with peripheral neuropathy ([facility])- Primary DM (diabetes mellitus), type 2 with neurological complications ([facility]) Type II or unspecified type diabetes mellitus with neurological manifestations, not stated as uncontrolled Aortic valve sclerosis Aortic valve disorders Subdural hemorrhage ([facility])- Primary Subdural hemorrhage SAH (subarachnoid hemorrhage) ([facility]) Subarachnoid hemorrhage Closed fracture of left femur, unspecified fracture morphology, unspecified portion of femur, initial encounter ([facility]) Acute blood loss anemia Acute posthemorrhagic anemia Midline shift of brain due to hematoma ([facility]) At risk for seizures Other specified conditions [...] hyperglycemia, without long-term current use of insulin ([facility]) Hyperkalemia Hyperpotassemia [facility] Diagnosis Vulvovaginal pain- Primary Unspecified [...] subsegmental pulmonary emboli without acute cor pulmonale ([facility]) Atypical chest pain Other chest pain Hyperlipidemia, unspecified hyperlipidemia type DM (diabetes mellitus), type 2 with neurological complications ([facility]) Type II or unspecified type diabetes [...] (BMI) of 38.0 to 38.9 in adult ([facility]) Pruritic condition- Primary Unspecified pruritic disorder Anemia, unspecified type Type 2 diabetes mellitus with peripheral neuropathy ([facility]) Vitamin D deficiency Unspecified vitamin D deficiency Vitamin B12 deficiency Other B-complex deficiencies Pedal edema Edema Dementia, unspecified dementia severity, unspecified dementia type, unspecified whether behavioral, psychotic, or mood disturbance or anxiety ([facility]) Subdural hemorrhage ([facility])- Primary Subdural hemorrhage Subdural hemorrhage (HCC) Subdural hemorrhage SAH (subarachnoid hemorrhage) ([facility]) Subarachnoid hemorrhage Closed fracture of left femur, [...] Other specified counseling Longstanding persistent atrial fibrillation ([facility]) [facility] Diagnosis Vulvovaginal pain- Primary Unspecified [...] 2 with neurological complications ([facility]) Type II or unspecified type diabetes [...] Other specified counseling Longstanding persistent atrial fibrillation ([facility]) Class 1 obesity due to excess calories with serious comorbidity and body mass index (BMI) of 34.0 to 34.9 in adult 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, without long-term current use of insulin ([facility]) [facility] Diagnosis Vulvovaginal pain- Primary Unspecified [...] of insulin (HCC) [facility] Diagnosis Vulvovaginal pain- Primary Unspecified [...] hemorrhage [facility] Diagnosis Nontraumatic intracranial hemorrhage, unspecified (HCC) documented in this encounter [facility] note* Diagnosis Vulvovaginal pain- Primary Unspecified [...] (BMI) of 38.0 to 38.9 in adult ([facility]) Subdural hemorrhage (HCC)- Primary Subdural hemorrhage Subdural hemorrhage (HCC) Subdural hemorrhage SAH (subarachnoid hemorrhage) (HCC) Subarachnoid hemorrhage Closed fracture of left femur, unspecified fracture morphology, unspecified portion of femur, initial encounter ([facility]) Acute blood loss anemia Acute posthemorrhagic anemia [...] documented in [facility]* Diagnosis Nontraumatic intracranial hemorrhage, unspecified (HCC)- Primary Nontraumatic intracranial hemorrhage, unspecified (HCC) documented in this encounter [facility] note* Diagnosis Nontraumatic intracranial hemorrhage, unspecified (HCC)- Primary [facility] Additional Instructions The Dermabond/skin adhesive will fall off on its own in approximately 10 days. You can continue to shower and wash your hair as normal. Please return to the ER should you have any further concernsWRegency Hospital Company Work Phone: Hospital Discharge instructions Additional Instructions Please follow-up with urology for repeat evaluation and return to the ER if your pain is not controlled with outpatient therapy or you develop a fever over 100.4W[facility] Work Phone: Reason for referral (narrative)* Outpatient Procedure (Routine) - Waiting for Online Response Specialty Diagnoses / Procedures Referred By Liliana silva Referred To [facility] Diagnoses Shortness of breath on exertion Irregular heart beat Fatigue, unspecified type Procedures ECHO ECHO TTHRC R-T 2D W/WOM-MODE COMPL SPEC&COLR D Comfort Patterson APRN.SURFACE BOSS [address] [place] [address] [facility] [place] [address] [place] [address] Referral ID Status Reason Start Date Expiration Date Visits Requested Visits Authorized [id number] Waiting for Online Response Auto-Generat ed Referral 10/28/2021 10/07/2022 1 1 * Consult, Test, Treat (Routine) - Pending Review Specialty Diagnoses / Procedures Referred By Liliana silva Referred To Contact Cardiology Diagnoses Shortness of breath on exertion Irregular heart beat Fatigue, unspecified type Procedures CONSULT TO CARDIOLOGY OFFICE/OUTPATIENT NEW HIGH MDM 60-74 MINUTES Comfort Patterson APRN.[employer]OSS [address] [place] [address] Referral ID Status Reason Start Date Expiration Date Visits Requested Visits Authorized [id number] Pending Review PCP Requested Referral 10/28/2021 10/07/2022 1 1 [facility] for referral (narrative)* Outpatient Procedure (Routine) - Pending Review Specialty Diagnoses / Procedures Referred By Contac t Referred To [facility] Diagnoses Irregular heart beat Procedures ECG COMPLETE ECG ROUTINE ECG W/LEAST 12 LDS W/I&R Iban Soto MD [address] [place] [address] [facility] [address] [address] Referral ID Status Reason Start Date Expiration Date Visits Requested Visits Authorized [id number] Pending Review Auto-Generat ed Referral 10/03/2021 10/03/2022 1 1 [facility] for referral (narrative)* Outpatient Procedure (Routine) - Closed Specialty Diagnoses / Procedures Referred By Contac t Referred To Contact [facility] [place] Diagnoses Dyspnea on exertion Procedures ECG COMPLETE ECG ROUTINE ECG W/LEAST 12 LDS W/I&R Gamaliel Alegre MD [address] [place] [address] [place] [id number] Referral ID Status Reason Start Date Expiration Date V isits Requested Visits Authorized [id number] Closed Auto-Generate d Referral 11/02/2021 11/02/2022 1 1 [facility] for referral (narrative)* Outpatient Procedure (Routine) - Pending Review Specialty Diagnoses / Procedures Referred By Contac t Referred To Contact [facility] Diagnoses FIELD (dyspnea on exertion) Chronic cough Procedures LUNG VOLUMES Guillaume Dominguez MD [address] [place] [address] [facility] [place] [facility] [place] [address] Referral ID Status Reason Start Date Expiration Date Visits Requested Visits Authorized [id number] Pending Review Auto-Generat ed Referral 2 05/27/2023 1 1 * Outpatient Procedure (Routine) - Authorized Specialty Diagnoses / Procedures Referred By Contac t Referred To Contact [facility] Diagnoses FIELD (dyspnea on exertion) Chronic cough Procedures SPIROMETRY WITH DILATOR IF OBSTRUCTED BRNCDILAT RSPSE SPMTRY PRE&POST-BRNCDILAT ADMN Guillaume Dominguez MD [address] [place] [address] [facility] [place] [address] [place] [id number] Referral ID Status Reason Start Date Expiration Date Visits Requested Visits Authorized [id number] Authorized Auto-Generat ed Referral 2 05/27/2023 1 1 * Outpatient Procedure (Routine) - Pending Review Specialty Diagnoses / Procedures Referred By Contac t Referred To Contact [facility] Diagnoses Irregular heart rhythm Procedures ECG COMPLETE ECG ROUTINE ECG W/LEAST 12 LDS W/I&R Guillaume Dominguez MD [address] [place] [address] [facility] [address] [address] Referral ID Status Reason Start Date Expiration Date Visits Requested Visits Authorized [id number] Pending Review Auto-Generat ed Referral 2 04/27/2023 1 1 [facility] Diagnostic Procedure Only (Routine) - Pending Review Specialty Diagnoses / Procedures Referred By Contac t Referred To Contact XR IMAGING Diagnoses Finger injury, right, initial encounter Procedures XR DIGIT GENERAL 3V FRONTAL/LAT/OBL RIGHT RADEX FINGR MINIMUM 2 VIEWS Eren Robbins MD [address] [place] [address] Xr Imaging Referral ID Status Reason Start Date Expiration Date Visits Requested Visits Authorized [id number] Pending Review Auto-Generat ed Referral 2 06/20/2023 1 1 [facility] for referral (narrative)* Diagnostic Procedure Only (Routine) - Pending Review Specialty Diagnoses / Procedures Referred By Contac t Referred To Contact XR IMAGING Diagnoses Kidney stone Procedures XR ABDOMEN 1V SUPINE RADIOLOGIC EXAM ABDOMEN 1 VIEW Maykel Patel Jr., MD [facility] [place] [address] Xr Imaging Referral ID Status Reason Start Date Expiration Date Visits Requested Visits Authorized [id number] Pending Review Auto-Generat ed Referral 09/09/2022 07/11/2023 1 1 [facility] [facility] for referral (narrative)* Outpatient Procedure (Routine) - [...] COMPL SPEC&COLR D Maykel Whitfield DO [address] [address] [facility] [place] [address] [place] [address] Referral ID Status Reason Start Date Expiration Date Visits Requested Visits Authorized [id number] Pending Review Auto-Generat ed Referral 01/11/2023 01/11/2024 [...] MULTIPLE STUDIES Maykel Whitfield, DO [address] [address] Molecular [facility] Functional Imaging [address] [place] [address] Referral ID Status Reason Start Date Expiration Date Visits Requested Visits Authorized [id number] Pending Review Auto-Generat ed Referral 01/11/2023 02/10/2024 1 1 [facility] for referral (narrative)* Diagnostic Procedure [...] MULTIPLE STUDIES Maykel Whitfield, DO [address] [address] Molecular [facility] Functional Imaging [address] [place] [address] Referral ID Status Reason Start Date Expiration Date V isits Requested Visits Authorized [id number] Closed Auto-Generate d Referral 01/12/2023 04/12/2023 1 1 [facility] for referral (narrative)* Diagnostic Procedure Only (Routine) - Closed Specialty Diagnoses / Procedures Referred By Contac t Referred To Contact XR IMAGING Diagnoses Kidney stone Procedures XR ABDOMEN 1V SUPINE RADIOLOGIC EXAM ABDOMEN 1 VIEW Maykel Patel Jr., MD [address] [place] [address] Xr Imaging [place] [address] Referral ID Status Reason Start Date Expiration Date V isits Requested Visits Authorized [id number] Closed Auto-Generate d Referral 09/23/2022 10/22/2023 1 1 [facility] for referral (narrative)* Diagnostic Procedure Only (Routine) - Authorized Specialty Diagnoses / Procedures [facility] To Contact [facility] Diagnoses Abnormal mammogram Procedures US BREAST LTD RIGHT US BREAST UNI REAL TIME WITH IMAGE LIMITED Josefa Caputo APRN.CNP [address] [place] [address] [facility] [address] [place] [address] Referral ID Status Reason Start Date Expiration Date Visits Requested Visits Authorized [id number] Authorized Auto-Generat ed Referral 07/07/2023 08/05/2024 1 1 * Diagnostic Procedure Only (Routine) - Authorized Specialty Diagnoses / Procedures [facility] Referred To Contact BR [facility]ING Diagnoses Abnormal mammogram Procedures ARTIS DIAGNOSTIC RIGHT DIAGNOSTIC MAMMOGRAPHY COMPUTER-AIDED DETCJ UNI Josefa Caputo APRN.CNP [address] [place] [address] [facility] [address] [place] [address] Referral ID Status Reason Start Date Expiration Date Visits Requested Visits Authorized [id number] Authorized Auto-Generat ed Referral 07/07/2023 08/05/2024 1 1 [facility] for referral (narrative)* Outpatient Procedure (Routine) - Authorized Specialty Diagnoses / Procedures [facility] Diagnoses Carotid stenosis, right Procedures US CAROTID ARTERIES POLO VAS LAB DUPLEX SCAN EXTRACRANIAL ART COMPL BI STUDY Josefa Caputo APRN.TRAINING AND DEVELOPMENT REP [address] [place] [address] [facility] [place] [address] [place] [address] Referral ID Status Reason Start Date Expiration Date Visits Requested Visits Authorized [id number] Authorized Auto-Generat ed Referral 08/13/2023 08/12/2024 1 1 * Medication Prior Authorization - Authorized Specialty Diagnoses / Procedures Referred By Contac t Referred To Contact Diagnoses Anxiety disorder, unspecified type Radiculopathy, lumbar region Chronic SI joint pain Josefa Caputo APRN.CNP [address] [place] [address] Referral ID Status Reason Start Date Expiration Date V isits Requested Visits Authorized [id number] Authorized 05/31/2023 05/30/2024 1 1 [facility] for referral (narrative)* Diagnostic Procedure Only (Routine) - New Request Specialty Diagnoses / Procedures Referred By Contac t Referred To Contact XR IMAGING Diagnoses Acute pain of right knee Procedures XR KNEE LIMITED 2V AP/LAT RIGHT RADIOLOGIC EXAMINATION KNEE 1/2 VIEWS Josefa Caputo APRN.TRAINING AND DEVELOPMENT REP [address] [place] [phone] [place] [address] Referral ID Status Reason Start Date Expiration Date Visits Requested Visits Authorized [id number] New Request Auto-Generat ed Referral 12/24/2023 01/22/2025 1 1 [facility] for referral (narrative)* Diagnostic Procedure Only (Routine) - Closed Specialty Diagnoses / Procedures Referred By Contac t Referred To Contact XR IMAGING Diagnoses Renal calculus, left Procedures XR ABDOMEN 1V SUPINE RADIOLOGIC EXAM ABDOMEN 1 VIEW Maykel Patel Jr., MD [address] [place] [address] [place] [address] Referral ID Status Reason Start Date Expiration Date V isits Requested Visits Authorized [id number] Closed Auto-Generate d Referral 04/07/2022 05/07/2023 1 1 [facility] for referral (narrative)* Diagnostic Procedure Only (Urgent) - Closed Specialty Diagnoses / Procedures Referred By Contac t Referred To Contact XR IMAGING Diagnoses Crushing injury of right middle finger, initial encounter Procedures XR DIGIT GENERAL 3V FRONTAL/LAT/OBL RIGHT RADEX FINGR MINIMUM 2 VIEWS Janae Sandoval APRN.TRAINING AND DEVELOPMENT REP [address] [place] [address] [place] [address] Referral ID Status Reason Start Date Expiration Date V isits Requested Visits Authorized [id number] Closed Auto-Generate d Referral 05/06/2022 06/05/2023 1 1 [facility] for referral (narrative)No reason for referral information [facility] Work Phone: Reason for visit Narrative* Diagnostic [...] MULTIPLE STUDIES Maykel Whitfield DO [address] [address] Molecular [facility] Imaging [address] [place] [address] Referral ID Status Reason Start Date Expiration Date V isits Requested Visits Authorized [id number] Closed Auto-Generate d Referral 01/12/2023 04/12/2023 1 1 [facility] for visit Narrative* Diagnostic Procedure Only (Routine) - Closed Specialty Diagnoses / Procedures Referred By Contac t Referred To Contact XR IMAGING Diagnoses Kidney stone Procedures XR ABDOMEN 1V SUPINE RADIOLOGIC EXAM ABDOMEN 1 VIEW Maykel Patel Jr., MD [address] [place] [address] [place] [address] Referral ID Status Reason Start Date Expiration Date V isits Requested Visits Authorized [id number] Closed Auto-Generate d Referral 09/23/2022 10/22/2023 1 1 [facility] for visit Narrative* Diagnostic Procedure Only (Routine) - Closed Specialty Diagnoses / Procedures Referred By Contac t Referred To Contact BR IMAGING Diagnoses Abnormal mammogram Procedures ARTIS DIAGNOSTIC RIGHT DIAGNOSTIC MAMMOGRAPHY COMPUTER-AIDED DETCJ UNI Josefa Caputo APRN.TRAINING AND DEVELOPMENT REP [address] [place] [address] [facility] Imaging [address] [place] [address] Referral ID Status Reason Start Date Expiration Date V isits Requested Visits Authorized [id number] Closed Auto-Generate d Referral 07/07/2023 08/05/2024 1 1 [facility] for visit Narrative* Diagnostic Procedure Only (Routine) - Authorized Specialty Diagnoses / Procedures Referred By Liliana t Referred To Contact BR IMAGING Diagnoses Abnormal mammogram Procedures US BREAST LTD RIGHT US BREAST UNI REAL TIME WITH IMAGE LIMITED Josefa Caputo APRN.TRAINING AND DEVELOPMENT REP [address] [place] [address] [facility] Imaging [address] [place] [address] Referral ID Status Reason Start Date Expiration Date Visits Requested Visits Authorized [id number] Authorized Auto-Generat ed Referral 07/07/2023 08/05/2024 1 1 [facility] for visit Narrative* Diagnostic Procedure Only (Routine) - Closed Specialty Diagnoses / Procedures Referred By Liliana t Referred To Contact XR IMAGING Diagnoses Acute pain of right knee Procedures XR KNEE LIMITED 2V AP/LAT RIGHT RADIOLOGIC EXAMINATION KNEE 1/2 VIEWS Josefa Caputo APRN.TRAINING AND DEVELOPMENT REP [address] [place] [address] [place] [address] Referral ID Status Reason Start Date Expiration Date V isits Requested Visits Authorized [id number] Closed Auto-Generate d Referral 12/24/2023 01/22/2025 1 1 [facility] for visit Narrative* Diagnostic Procedure Only (Routine) - Closed Specialty Diagnoses / Procedures Referred By Liliana t Referred To Contact XR IMAGING Diagnoses Renal calculus, left Procedures XR ABDOMEN 1V SUPINE RADIOLOGIC EXAM ABDOMEN 1 VIEW Maykel Patel Jr., MD [address] [place] [address] [place] [address] Referral ID Status Reason Start Date Expiration Date V isits Requested Visits Authorized [id number] Closed Auto-Generate d Referral 04/07/2022 05/07/2023 1 1 [facility] for visit Narrative* Diagnostic Procedure Only (Urgent) - Closed Specialty Diagnoses / Procedures Referred By Contac t Referred To Contact XR IMAGING Diagnoses Crushing injury of right middle finger, initial encounter Procedures XR DIGIT GENERAL 3V FRONTAL/LAT/OBL RIGHT RADEX FINGR MINIMUM 2 VIEWS Janae Sandoval, [employer] SUPERVISOR.TRAINING AND DEVELOPMENT REP [address] [place] [address] [place] [address] Referral ID Status Reason Start Date Expiration Date V isits Requested Visits Authorized [id number] Closed Auto-Generate d Referral 05/06/2022 06/05/2023 1 1 [facility] for visit Narrative* Imaging (Routine) - Closed Specialty Diagnoses / Procedures Referred By Contac t Referred To Contact Radiology Diagnoses Nontraumatic intracranial hemorrhage, unspecified (HCC) Procedures CT head wo IV contrast Tika Jones MD [address] [place] [address] Phone: tel: fax: Referral ID Status Reason Start Date Expiration Date Visits Re quested Visits Authorized [id number] Closed 08/01/2024 09/30/2024 1 1 [facility] Summary Purpose Family History No Family History Records FoundNo Family History Records FoundNo Family History Records FoundNo Family History Records FoundNo Family History Records FoundNo Family History Records FoundNo Family History Records FoundNo Family History Records Found Advance Directives No Advanced Directives Records FoundDocuments on File Type Date Recorded Patient Cardiac Sonographer Expl anation Advance Directive(s) 08/16/2020 1:32 PM Advance Directive(s) 08/06/2020 9:17 AM Advance Directive(s) 05/05/2019 11:23 AM Advance Directive(s) 05/05/2019 11:27 AM Advance Directive(s) 03/17/2019 2:21 PM Advance Directive(s) 12/15/2018 11:36 AM Advance Directive(s) 11/23/2018 2:18 PM Advance Directive(s) 10/04/2018 7:45 AM Advance Directive(s) 11/09/2017 7:52 AM Documents on File Type Date Recorded Patient Cardiac Sonographer Expl anation Advance Directive(s) 08/16/2020 1:32 PM Advance Directive(s) 08/06/2020 9:17 AM Advance Directive(s) 05/05/2019 11:23 AM Advance Directive(s) 05/05/2019 11:27 AM Advance Directive(s) 03/17/2019 2:21 PM Advance Directive(s) 12/15/2018 11:36 AM Advance Directive(s) 11/23/2018 2:18 PM Advance Directive(s) 10/04/2018 7:45 AM Advance Directive(s) 11/09/2017 7:52 AM Documents on File Type Date Recorded Patient Cardiac Sonographer Expl anation Advance Directive(s) 11/21/2021 12:55 PM [...] No February 16, 2022 6:26pm Power of Palliative Care Physician No January 6:26pm Advance Directive Response Recorded Date/ Time Advance Directives Yes June 20, 2017 8:56pm Living Will No February 21, 2022 1:16am Power of Palliative Care Physician No January 1:16am Advance Directive Response Recorded Date/ Time Advance Directives Yes June 20, 2017 8:56pm Living Will No February 28 5:40am Power of Palliative Care Physician No February 28 5:40am Documents on File Type Date Recorded Patient Cardiac Sonographer Expl anation Advance Directive(s) 08/28/2022 2:42 PM Documents on File Type Date Recorded Patient Cardiac Sonographer Expl anation Advance Directive(s) 08/28/2022 2:42 PM Advance Directive Response Recorded Date/ Time Advance Directives Yes June 20, 2017 8:56pm Living Will Yes February 26, 2023 5:38pm Power of Palliative Care Physician Yes January 5:38pm Name of Medical Power of Palliative Care Physician Reynaldo Davenport February 26, 2023 5:38pm Advance Directive Response Recorded Date/ Time Name of Medical Power of Palliative Care Physician Reynaldo Davenport February 26, 2023 4:38pm Name of Medical Power of Palliative Care Physician hardy black--[phone] June 12, 2023 7:20pm Advance Directives Yes June 20, 2017 7:56pm Living Will Yes June 12 7:20pm Power of Palliative Care Physician Yes June 12, 2023 7:20pm Documents on File Type Date Recorded Patient Cardiac Sonographer Expl anation Advance Directive(s) 08/28/2022 2:42 PM Hardy Black Documents on File Type Date Recorded Patient Cardiac Sonographer Expl anation Advance Directive(s) 08/28/2022 2:42 PM Hardy Black Date Activated Date Inactivated Comments 05/06/2024 5:25 AM Question Answer Comments Full Code Order Discussed With: Patient Date Activated Date Inactivated Comments 05/08/2024 11:35 AM Question Answer Comments DNR Order Discussed With: Surrogate Decision Cesario er Surrogate Decision Maker Name: hardy cardoso Surrogate Decision Maker Relationship: Health Ca re Power of Palliative Care Physician Agent Date Activated Date Inactivated Comments 05/08/2024 11:15 AM 05/08/2024 11:35 AM Question Answer Comments DNR Order Discussed With: Surrogate Decision Cesario er Surrogate Decision Maker Name: aHrdy Black Surrogate Decision Maker Phone: [phone] Date Activated Date Inactivated Comments 05/06/2024 5:25 [...] Maker Relationship: Health Ca re Power of Palliative Care Physician Agent Date Activated Date Inactivated Comments 05/08/2024 11:15 AM 05/08/2024 11:35 AM Question Answer Comments DNR Order Discussed With: Surrogate Decision Cesario er Surrogate Decision Maker Name: Hardy Black Surrogate Decision Maker Phone: [phone] Date Activated Date Inactivated Comments 05/06/2024 5:25 AM 05/08/2024 11:15 AM Question Answer Comments Full Code Order Discussed With: Patient Advance Directive Response Recorded Date/ Time Living Will Yes May 05 11:59pm Do you have a Healthcare Power of Palliative Care Physician? Yes May 05, 2024 11:59pm Name of Medical Power of Palliative Care Physician HARDY May 05, 2024 11:59pm Advance Directives Yes June 20, 2017 8:56pm Advance Directive Response Recorded Date/ Time Advance Directives Yes June 20, 2017 8:56pm Procedure Findings Note HNO ID: [id number] Author: Candie Prado Service: Urogynecology Author Type: Physician Type: Operative Report Filed: 06/12/2019 9:29 AM Note Text: OPERATIVE / PROCEDURE NOTE LOG ID: [id number] Surgery/Procedure Date: 06/12/2019 Incision/Procedure Start Time: 7:46 AM Incision Close/Procedure End Time: 8:06 AM Surgeon(s)/Proceduralist(s) and Marine Electronics Technician(s): Surgeon(s) and Role: * Esther Prado - Primary * Chaparrita Waite MD (Fel) - Fellow No Additional Staff Procedure(s): Exam under anesthesia, Vulvar biopsies Anesthesia: MAC Findings: 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 Extensive erythema with beefy red and inflammed appearing labia majora and perianal skin in a uucocy-br-wkuyl pattern. Skin is shiny and taut. Mildly thickened, white, stellate lesions noted at 9:00 and 3:00 on the labia majora (each approximately 8 mm in size) and 7:00 at the region of the labia minora about 1.5 cm distal to the introitus (approx 10 mm in size), and las (more content not included)... Note HNO ID: [id number] Author: Shelley Waite MD (Fel) Service: Urogynecology Author Type: Fellow Type: Brief Op Note Filed: 06/12/2019 8:26 AM Note Text: BRIEF OPERATIVE / PROCEDURE NOTE LOG ID: [id number] Surgery/Procedure Date: 06/12/2019 Incision/Procedure Start Time: 7:46 AM Incision Close/Procedure End Time: 8:06 AM Surgeon(s)/Proceduralist(s) and Marine Electronics Technician(s): Surgeon(s) and Role: * Esther Rosa Eve - Primary * Chaparrita Waite MD (Fel) - Fellow No Additional Staff Procedure(s): Exam under anesthesia, Vulvar biopsies Anesthesia: MAC Findings: 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 Extensive erythema with beefy red and inflammed appearing labia majora and perianal skin in a khgevt-ke-zypjw pattern. Mildly thickened, white, stellate lesions noted [...] 5:00am LABWORK June 05, 2024 5: 00am CORRECTION LAB WORK June 09, 2024 5:45am CORRECTION LAB WORK June 20, 2024 5:00am LAB WORK July 10, 2024 4:00am LAB WORK July 25, 2024 4:00am CORRECTION LAB WORK August 08, 2024 5 :00am Chief Complaint Admit Date fallMay 05, 2024 1 0:59pm LAB WORK May 22, 2024 5:00am LAB WORK May 23, 2024 12:15am LAB WORK May 29, 2024 5:00am LABWORK June 05, 2024 5: 00am CORRECTION LAB WORK June 09, 2024 5:45am CORRECTION LAB WORK June 20, 2024 5:00am LAB WORK July 10, 2024 4:00am LAB WORK July 25, 2024 4:00am CORRECTION LAB WORK August 08, 2024 5 :00am CORRECTION LAB WORK August 11, 2024 5 :00am Chief Complaint Admit Date CORRECTION LAB WORK June 20, 2024 5:00am LAB WORK July 10, 2024 4:00am LAB WORK July 25, 2024 4:00am CORRECTION LAB WORK August 08, 2024 5 :00am CORRECTION LAB WORK August 11, 2024 5 :00am LABWORK September 21, 2024 5:0 0am Chief Complaint Admit Date LAB WORK July 10, 2024 4:00am LAB WORK July 25, 2024 4:00am CORRECTION LAB WORK March 11th, 2025 5 :00am CORRECTION LAB WORK August 11, 2024 5 :00am CORRECTION LAB WORK September 11, 2024 9 :45pm LABWORK September 21, 2024 5:0 0am CORRECTION LAB WORK September 26, 2024 4 :00am Reason for Referral Specialty Diagnoses / Procedures Referred By Contac t Referred To Contact Orthopedics Diagnoses Open fracture of tuft of distal phalanx of finger Procedures CONSULT PANEL TO ORTHOPAEDICS OFFICE/OUTPATIENT [facility] 60-74 MINUTES Janae Sandoval, [employer] SUPERVISOR.TRAINING AND DEVELOPMENT REP [address] [place] [address] Referral ID Status Reason Start Date Expiration Date Visits Requested Visits Authorized [id number] Pending Review PCP Requested Referral 05/06/2022 05/06/2023 1 1 Specialty Diagnoses / Procedures Referred By Contac t Referred To Contact XR IMAGING Diagnoses Crushing injury of right middle finger, initial encounter Procedures XR DIGIT GENERAL 3V FRONTAL/LAT/OBL RIGHT RADEX FINGR MINIMUM 2 VIEWS Janae Sandoval, [employer] SUPERVISOR.TRAINING AND DEVELOPMENT REP [address] [place] [address] Xr Imaging Referral ID Status Reason Start Date Expiration Date V isits Requested Visits Authorized [id number] Closed Auto-Generate d Referral 05/06/2022 06/05/2023 1 1 Specialty Diagnoses / Procedures Referred By Contac t Referred To Contact [facility] Diagnoses Spinal stenosis of lumbar region, unspecified whether neurogenic claudication present Lumbar spondylosis Radiculopathy, lumbar region Spondylolisthesis of lumbar region Procedures CONSULT TO PHYSICAL THERAPY PHYSICAL THERAPY EVALUATION HIGH COMPLEX 45 MINS Oralia Garcia, [employer] SUPERVISOR.TRAINING AND DEVELOPMENT REP [address] [place] [address] [facility] [place] [address] [place] [address] Referral ID Status Reason Start Date Expiration Date Visits Requested Visits Authorized [id number] Pending Review Auto-Generat ed Referral 08/04/2022 08/04/2023 1 1 Specialty Diagnoses / Procedures Referred By Contac t Referred To Contact [facility] Diagnoses Spinal stenosis of lumbar region, unspecified whether neurogenic claudication present Lumbar spondylosis Radiculopathy, lumbar region Spondylolisthesis of lumbar region Procedures PT REHAB FOLLOW UP ORDER THERAPEUTIC EXERCISES RE, EA 15 MIN. Pt [facility] [address] [place] [address] [facility] [place] [address] [place] [address] Referral ID Status Reason Start Date Expiration Date Visits Requested Visits Authorized [id number] Pending Review PCP Requested Referral Auto-Generate d Referral 08/18/2022 11/16/2022 1 1 Specialty Diagnoses / Procedures Referred By Contac t Referred To Contact Cardiology Diagnoses Irregular heart rhythm FIELD (dyspnea on exertion) Premature atrial complexes Procedures CONSULT TO CARDIOLOGY OFFICE/OUTPATIENT [facility] 60-74 MINUTES Guillaume Dominguez MD [address] [place] [address] Maykel Whitfield, [address] [address] Referral ID Status Reason Start Date Expiration Date Visits Requested Visits Authorized [id number] Pending Review PCP Requested Referral 08/15/2022 08/15/2023 1 1 Specialty Diagnoses / Procedures Referred By Contac t Referred To Contact [facility] Diagnoses Bilateral carotid artery stenosis Procedures US CAROTID ARTERIES POLO VAS LAB DUPLEX SCAN EXTRACRANIAL ART COMPL BI STUDY Guillaume Dominguez MD [address] [place] [address] [facility] [place] [address] [place] [address] Referral ID Status Reason Start Date Expiration Date Visits Requested Visits Authorized [id number] Pending Review Auto-Generat ed Referral 08/15/2022 08/15/2023 1 1 Specialty Diagnoses / Procedures Referred By Contac t Referred To Contact [facility] Diagnoses Irregular heart rhythm FIELD (dyspnea on exertion) Procedures ECG COMPLETE ECG ROUTINE ECG W/LEAST 12 LDS W/I&R Guillaume Dominguez MD [address] [place] [address] [facility] [place] [address] [place] [address] Referral ID Status Reason Start Date Expiration Date V isits Requested Visits Authorized [id number] Closed Auto-Generate d Referral 08/15/2022 08/15/2023 1 1 Specialty Diagnoses / Procedures Referred By Contac t Referred To Contact [facility] Diagnoses Spinal stenosis of lumbar region, unspecified whether neurogenic claudication present Lumbar spondylosis Spondylolisthesis of lumbar region Radiculopathy, lumbar region Procedures PT REHAB FOLLOW UP ORDER THERAPEUTIC EXERCISES RE, EA 15 MIN. Self [facility] [place] [address] [place] [address] Referral ID Status Reason Start Date Expiration Date V isits Requested Visits Authorized [id number] Closed PCP Requested Referral Auto-Generated Referral 09/17/2022 12/16/2022 1 1 Specialty Diagnoses / Procedures Referred By Contac t Referred To Contact BR IMAGING Diagnoses Breast cancer screening by mammogram Procedures ARTIS SCREENING SCREENING MAMMOGRAPHY BI 2-VIEW BREAST INC CAD Guillaume Dominguez MD [address] [place] [address] [facility] [address] [place] [address] Referral ID Status Reason Start Date Expiration Date Visits Requested Visits Authorized [id number] Pending Review Auto-Generat ed Referral 3 08/12/2023 3 1 Specialty Diagnoses / Procedures Referred By Contac t Referred To Contact Diagnoses Mild cognitive impairment Procedures CONSULT TO [facility] OFFICE/OUTPATIENT [facility] 60 MINUTES Martha Germain DO [address] [place] [address] Referral ID Status Reason Start Date Expiration Date Visits Requested Visits Authorized [id number] Authorized PCP Requested Referral 08/11/2023 08/10/2024 1 1 Specialty Diagnoses / Procedures Referred By Contac t Referred To Contact Gerontology Diagnoses Mild cognitive impairment Procedures CONSULT TO GERIATRICS OFFICE/OUTPATIENT [facility] 60 MINUTES Martha Germain, [address] [place] [address] Referral ID Status Reason Start Date Expiration Date Visits Requested Visits Authorized [id number] Authorized PCP Requested Referral 08/11/2023 08/10/2024 1 1 Specialty Diagnoses / Procedures Referred By Contac t Referred To Contact Radha Walters MD [address] [place] [address] Referral ID Status Reason Start Date Expiration Date V isits Requested Visits Authorized [id number] Authorized 05/31/2023 05/30/2024 1 1 Specialty Diagnoses / Procedures Referred By Contac t Referred To Contact Gerontology Diagnoses Cognitive impairment Procedures CONSULT TO GERIATRICS OFFICE/OUTPATIENT [facility] 60 MINUTES Guillaume Dominguez MD [address] [place] [address] Damaris Knott MD [address] [place] [address] Referral ID Status Reason Start Date Expiration Date Visits Requested Visits Authorized [id number] Authorized PCP Requested Referral 12/10/2023 12/09/2024 1 1 Additional Source Comments INFORMATION SOURCE (unrecogn ized section and content) DATE CREATED AUTHOR 11/18/2017 [facility] DATE CREATED AUTHOR AUTHOR'S ORGANIZ ATION 10/17/2018 [facility] DATE CREATED AUTHOR AUTHOR'S ORGANIZ ATION [facility]/27/2019 [facility] DATE CREATED AUTHOR AUTHOR'S ORGANIZ ATION 03/31/2024 [facility] DATE CREATED AUTHOR AUTHOR'S ORGANIZ ATION 08/04/[address] [facility] DATE CREATED AUTHOR AUTHOR'S ORGANIZ ATION 08/05/2024 [facility] DATE CREATED AUTHOR AUTHOR'S ORGANIZ ATION 12/26/2024 [facility] DATE CREATED AUTHOR AUTHOR'S ORGANIZ ATION 03/30/2025 [facility] Source Comments (unrecognize d section and content) In the event this informatio n is protected by the Federal Confidentiality of Alcohol and Drug Abuse Patient Records regulations: The Federal rules restrict any use of the information to criminally investigate or prosecute any alcohol or drug abuse patient.[facility] the event this information is protected by the Federal Confidentiality of Alcohol and Drug Abuse Patient Records regulations: The Federal rules restrict any use of the information to criminally investigate or prosecute any alcohol or drug abuse patient.[facility]In the event this information is protected by the Federal Confidentiality of Alcohol and Drug Abuse Patient Records regulations: The Federal rules restrict any use of the information to criminally investigate or prosecute any alcohol or drug abuse patient.[facility]In the event this information is protected by the Federal Confidentiality of Alcohol and Drug Abuse Patient Records regulations: The Federal rules restrict any use of the information to criminally investigate or prosecute any alcohol or drug abuse patient.[facility]In the event this information is protected by the Federal Confidentiality of Alcohol and Drug Abuse Patient Records regulations: The Federal rules restrict any use of the information to criminally investigate or prosecute any alcohol or drug abuse patient.[facility]In the event this information is protected by the Federal Confidentiality of Alcohol and Drug Abuse Patient Records regulations: The Federal rules restrict any use of the information to criminally investigate or prosecute any alcohol or drug abuse patient.[facility]In the event this information is protected by the Federal Confidentiality of Alcohol and Drug Abuse Patient Records regulations: The Federal rules restrict any use of the information to criminally investigate or prosecute any alcohol or drug abuse patient.[facility]In the event this information is protected by the Federal Confidentiality of Alcohol and Drug Abuse Patient Records regulations: The Federal rules restrict any use of the information to criminally investigate or prosecute any alcohol or drug abuse patient.[facility]In the event this information is protected by the Federal Confidentiality of Alcohol and Drug Abuse Patient Records regulations: The Federal rules restrict any use of the information to criminally investigate or prosecute any alcohol or drug abuse patient.[facility]In the event this information is protected by the Federal Confidentiality of Alcohol and Drug Abuse Patient Records regulations: The Federal rules restrict any use of the information to criminally investigate or prosecute any alcohol or drug abuse patient.[facility]In the event this information is protected by the Federal Confidentiality of Alcohol and Drug Abuse Patient Records regulations: The Federal rules restrict any use of the information to criminally investigate or prosecute any alcohol or drug abuse patient.[facility]In the event this information is protected by the Federal Confidentiality of Alcohol and Drug Abuse Patient Records regulations: The Federal rules restrict any use of the information to criminally investigate or prosecute any alcohol or drug abuse patient.[facility] HospitalIn the event this information is protected by the Federal Confidentiality of Alcohol and Drug Abuse Patient Records regulations: The Federal rules restrict any use of the information to criminally investigate or prosecute any alcohol or drug abuse patient.[facility] HospitalIn the event this information is protected by the Federal Confidentiality of Alcohol and Drug Abuse Patient Records regulations: The Federal rules restrict any use of the information to criminally investigate or prosecute any alcohol or drug abuse patient.[facility] HospitalIn the event this information is protected by the Federal Confidentiality of Alcohol and Drug Abuse Patient Records regulations: The Federal rules restrict any use of the information to criminally investigate or prosecute any alcohol or drug abuse patient.[facility] HospitalIn the event this information is protected by the Federal Confidentiality of Alcohol and Drug Abuse Patient Records regulations: The Federal rules restrict any use of the information to criminally investigate or prosecute any alcohol or drug abuse patient.[facility] HospitalIn the event this information is protected by the Federal Confidentiality of Alcohol and Drug Abuse Patient Records regulations: The Federal rules restrict any use of the information to criminally investigate or prosecute any alcohol or drug abuse patient.[facility]In the event this information is protected by the Federal Confidentiality of Alcohol and Drug Abuse Patient Records regulations: The Federal rules restrict any use of the information to criminally investigate or prosecute any alcohol or drug abuse patient.[facility]In the event this information is protected by the Federal Confidentiality of Alcohol and Drug Abuse Patient Records regulations: The Federal rules restrict any use of the information to criminally investigate or prosecute any alcohol or drug abuse patient.[facility] HospitalIn the event this information is protected by the Federal Confidentiality of Alcohol and Drug Abuse Patient Records regulations: The Federal rules restrict any use of the information to criminally investigate or prosecute any alcohol or drug abuse patient.[facility] HospitalIn the event this information is protected by the Federal Confidentiality of Alcohol and Drug Abuse Patient Records regulations: The Federal rules restrict any use of the information to criminally investigate or prosecute any alcohol or drug abuse patient.[facility] HospitalIn the event this information is protected by the Federal Confidentiality of Alcohol and Drug Abuse Patient Records regulations: The Federal rules restrict any use of the information to criminally investigate or prosecute any alcohol or drug abuse patient.[facility] HospitalIn the event this information is protected by the Federal Confidentiality of Alcohol and Drug Abuse Patient Records regulations: The Federal rules restrict any use of the information to criminally investigate or prosecute any alcohol or drug abuse patient.[facility] HospitalIn the event this information is protected by the Federal Confidentiality of Alcohol and Drug Abuse Patient Records regulations: The Federal rules restrict any use of the information to criminally investigate or prosecute any alcohol or drug abuse patient.[facility] HospitalIn the event this information is protected by the Federal Confidentiality of Alcohol and Drug Abuse Patient Records regulations: The Federal rules restrict any use of the information to criminally investigate or prosecute any alcohol or drug abuse patient.[facility] HospitalIn the event this information is protected by the Federal Confidentiality of Alcohol and Drug Abuse Patient Records regulations: The Federal rules restrict any use of the information to criminally investigate or prosecute any alcohol or drug abuse patient.[facility] HospitalIn the event this information is protected by the Federal Confidentiality of Alcohol and Drug Abuse Patient Records regulations: The Federal rules restrict any use of the information to criminally investigate or prosecute any alcohol or drug abuse patient.[facility] HospitalIn the event this information is protected by the Federal Confidentiality of Alcohol and Drug Abuse Patient Records regulations: The Federal rules restrict any use of the information to criminally investigate or prosecute any alcohol or drug abuse patient.[facility] HospitalIn the event this information is protected by the Federal Confidentiality of Alcohol and Drug Abuse Patient Records regulations: The Federal rules restrict any use of the information to criminally investigate or prosecute any alcohol or drug abuse patient.[facility] HospitalIn the event this information is protected by the Federal Confidentiality of Alcohol and Drug Abuse Patient Records regulations: The Federal rules restrict any use of the information to criminally investigate or prosecute any alcohol or drug abuse patient.[facility] HospitalIn the event this information is protected by the Federal Confidentiality of Alcohol and Drug Abuse Patient Records regulations: The Federal rules restrict any use of the information to criminally investigate or prosecute any alcohol or drug abuse patient.[facility] HospitalIn the event this information is protected by the Federal Confidentiality of Alcohol and Drug Abuse Patient Records regulations: The Federal rules restrict any use of the information to criminally investigate or prosecute any alcohol or drug abuse patient.[facility] HospitalIn the event this information is protected by the Federal Confidentiality of Alcohol and Drug Abuse Patient Records regulations: The Federal rules restrict any use of the information to criminally investigate or prosecute any alcohol or drug abuse patient.[facility] HospitalIn the event this information is protected by the Federal Confidentiality of Alcohol and Drug Abuse Patient Records regulations: The Federal rules restrict any use of the information to criminally investigate or prosecute any alcohol or drug abuse patient.[facility] HospitalIn the event this information is protected by the Federal Confidentiality of Alcohol and Drug Abuse Patient Records regulations: The Federal rules restrict any use of the information to criminally investigate or prosecute any alcohol or drug abuse patient.[facility] HospitalIn the event this information is protected by the Federal Confidentiality of Alcohol and Drug Abuse Patient Records regulations: The Federal rules restrict any use of the information to criminally investigate or prosecute any alcohol or drug abuse patient.[facility] HospitalIn the event this information is protected by the Federal Confidentiality of Alcohol and Drug Abuse Patient Records regulations: The Federal rules restrict any use of the information to criminally investigate or prosecute any alcohol or drug abuse patient.[facility] HospitalIn the event this information is protected by the Federal Confidentiality of Alcohol and Drug Abuse Patient Records regulations: The Federal rules restrict any use of the information to criminally investigate or prosecute any alcohol or drug abuse patient.[facility] HospitalIn the event this information is protected by the Federal Confidentiality of Alcohol and Drug Abuse Patient Records regulations: The Federal rules restrict any use of the information to criminally investigate or prosecute any alcohol or drug abuse patient.[facility] HospitalIn the event this information is protected by the Federal Confidentiality of Alcohol and Drug Abuse Patient Records regulations: The Federal rules restrict any use of the information to criminally investigate or prosecute any alcohol or drug abuse patient.[facility] HospitalIn the event this information is protected by the Federal Confidentiality of Alcohol and Drug Abuse Patient Records regulations: The Federal rules restrict any use of the information to criminally investigate or prosecute any alcohol or drug abuse patient.[facility] HospitalIn the event this information is protected by the Federal Confidentiality of Alcohol and Drug Abuse Patient Records regulations: The Federal rules restrict any use of the information to criminally investigate or prosecute any alcohol or drug abuse patient.[facility] HospitalIn the event this information is protected by the Federal Confidentiality of Alcohol and Drug Abuse Patient Records regulations: The Federal rules restrict any use of the information to criminally investigate or prosecute any alcohol or drug abuse patient.[facility] HospitalIn the event this information is protected by the Federal Confidentiality of Alcohol and Drug Abuse Patient Records regulations: The Federal rules restrict any use of the information to criminally investigate or prosecute any alcohol or drug abuse patient.[facility] HospitalIn the event this information is protected by the Federal Confidentiality of Alcohol and Drug Abuse Patient Records regulations: The Federal rules restrict any use of the information to criminally investigate or prosecute any alcohol or drug abuse patient.[facility] HospitalIn the event this information is protected by the Federal Confidentiality of Alcohol and Drug Abuse Patient Records regulations: The Federal rules restrict any use of the information to criminally investigate or prosecute any alcohol or drug abuse patient.[facility] HospitalIn the event this information is protected by the Federal Confidentiality of Alcohol and Drug Abuse Patient Records regulations: The Federal rules restrict any use of the information to criminally investigate or prosecute any alcohol or drug abuse patient.[facility] HospitalIn the event this information is protected by the Federal Confidentiality of Alcohol and Drug Abuse Patient Records regulations: The Federal rules restrict any use of the information to criminally investigate or prosecute any alcohol or drug abuse patient.[facility] HospitalIn the event this information is protected by the Federal Confidentiality of Alcohol and Drug Abuse Patient Records regulations: The Federal rules restrict any use of the information to criminally investigate or prosecute any alcohol or drug abuse patient.[facility] HospitalIn the event this information is protected by the Federal Confidentiality of Alcohol and Drug Abuse Patient Records regulations: The Federal rules restrict any use of the information to criminally investigate or prosecute any alcohol or drug abuse patient.[facility] HospitalIn the event this information is protected by the Federal Confidentiality of Alcohol and Drug Abuse Patient Records regulations: The Federal rules restrict any use of the information to criminally investigate or prosecute any alcohol or drug abuse patient.[facility] HospitalIn the event this information is protected by the Federal Confidentiality of Alcohol and Drug Abuse Patient Records regulations: The Federal rules restrict any use of the information to criminally investigate or prosecute any alcohol or drug abuse patient.[facility] HospitalIn the event this information is protected by the Federal Confidentiality of Alcohol and Drug Abuse Patient Records regulations: The Federal rules restrict any use of the information to criminally investigate or prosecute any alcohol or drug abuse patient.[facility] HospitalIn the event this information is protected by the Federal Confidentiality of Alcohol and Drug Abuse Patient Records regulations: The Federal rules restrict any use of the information to criminally investigate or prosecute any alcohol or drug abuse patient.[facility] HospitalIn the event this information is protected by the Federal Confidentiality of Alcohol and Drug Abuse Patient Records regulations: The Federal rules restrict any use of the information to criminally investigate or prosecute any alcohol or drug abuse patient.[facility] HospitalIn the event this information is protected by the Federal Confidentiality of Alcohol and Drug Abuse Patient Records regulations: The Federal rules restrict any use of the information to criminally investigate or prosecute any alcohol or drug abuse patient.[facility] HospitalIn the event this information is protected by the Federal Confidentiality of Alcohol and Drug Abuse Patient Records regulations: The Federal rules restrict any use of the information to criminally investigate or prosecute any alcohol or drug abuse patient.[facility] HospitalIn the event this information is protected by the Federal Confidentiality of Alcohol and Drug Abuse Patient Records regulations: The Federal rules restrict any use of the information to criminally investigate or prosecute any alcohol or drug abuse patient.[facility] HospitalIn the event this information is protected by the Federal Confidentiality of Alcohol and Drug Abuse Patient Records regulations: The Federal rules restrict any use of the information to criminally investigate or prosecute any alcohol or drug abuse patient.[facility] HospitalIn the event this information is protected by the Federal Confidentiality of Alcohol and Drug Abuse Patient Records regulations: The Federal rules restrict any use of the information to criminally investigate or prosecute any alcohol or drug abuse patient.[facility] HospitalIn the event this information is protected by the Federal Confidentiality of Alcohol and Drug Abuse Patient Records regulations: The Federal rules restrict any use of the information to criminally investigate or prosecute any alcohol or drug abuse patient.[facility] HospitalIn the event this information is protected by the Federal Confidentiality of Alcohol and Drug Abuse Patient Records regulations: The Federal rules restrict any use of the information to criminally investigate or prosecute any alcohol or drug abuse patient.[facility] HospitalIn the event this information is protected by the Federal Confidentiality of Alcohol and Drug Abuse Patient Records regulations: The Federal rules restrict any use of the information to criminally investigate or prosecute any alcohol or drug abuse patient.[facility] HospitalIn the event this information is protected by the Federal Confidentiality of Alcohol and Drug Abuse Patient Records regulations: The Federal rules restrict any use of the information to criminally investigate or prosecute any alcohol or drug abuse patient.[facility] HospitalIn the event this information is protected by the Federal Confidentiality of Alcohol and Drug Abuse Patient Records regulations: The Federal rules restrict any use of the information to criminally investigate or prosecute any alcohol or drug abuse patient.[facility] HospitalIn the event this information is protected by the Federal Confidentiality of Alcohol and Drug Abuse Patient Records regulations: The Federal rules restrict any use of the information to criminally investigate or prosecute any alcohol or drug abuse patient.[facility] HospitalIn the event this information is protected by the Federal Confidentiality of Alcohol and Drug Abuse Patient Records regulations: The Federal rules restrict any use of the information to criminally investigate or prosecute any alcohol or drug abuse patient.[facility] HospitalIn the event this information is protected by the Federal Confidentiality of Alcohol and Drug Abuse Patient Records regulations: The Federal rules restrict any use of the information to criminally investigate or prosecute any alcohol or drug abuse patient.[facility] HospitalIn the event this information is protected by the Federal Confidentiality of Alcohol and Drug Abuse Patient Records regulations: The Federal rules restrict any use of the information to criminally investigate or prosecute any alcohol or drug abuse patient.[facility] HospitalIn the event this information is protected by the Federal Confidentiality of Alcohol and Drug Abuse Patient Records regulations: The Federal rules restrict any use of the information to criminally investigate or prosecute any alcohol or drug abuse patient.[facility] HospitalIn the event this information is protected by the Federal Confidentiality of Alcohol and Drug Abuse Patient Records regulations: The Federal rules restrict any use of the information to criminally investigate or prosecute any alcohol or drug abuse patient.[facility] HospitalIn the event this information is protected by the Federal Confidentiality of Alcohol and Drug Abuse Patient Records regulations: The Federal rules restrict any use of the information to criminally investigate or prosecute any alcohol or drug abuse patient.[facility] HospitalIn the event this information is protected by the Federal Confidentiality of Alcohol and Drug Abuse Patient Records regulations: The Federal rules restrict any use of the information to criminally investigate or prosecute any alcohol or drug abuse patient.[facility] HospitalIn the event this information is protected by the Federal Confidentiality of Alcohol and Drug Abuse Patient Records regulations: The Federal rules restrict any use of the information to criminally investigate or prosecute any alcohol or drug abuse patient.[facility] HospitalIn the event this information is protected by the Federal Confidentiality of Alcohol and Drug Abuse Patient Records regulations: The Federal rules restrict any use of the information to criminally investigate or prosecute any alcohol or drug abuse patient.[facility] HospitalIn the event this information is protected by the Federal Confidentiality of Alcohol and Drug Abuse Patient Records regulations: The Federal rules restrict any use of the information to criminally investigate or prosecute any alcohol or drug abuse patient.[facility] HospitalIn the event this information is protected by the Federal Confidentiality of Alcohol and Drug Abuse Patient Records regulations: The Federal rules restrict any use of the information to criminally investigate or prosecute any alcohol or drug abuse patient.[facility] HospitalIn the event this information is protected by the Federal Confidentiality of Alcohol and Drug Abuse Patient Records regulations: The Federal rules restrict any use of the information to criminally investigate or prosecute any alcohol or drug abuse patient.[facility] HospitalIn the event this information is protected by the Federal Confidentiality of Alcohol and Drug Abuse Patient Records regulations: The Federal rules restrict any use of the information to criminally investigate or prosecute any alcohol or drug abuse patient.[facility] HospitalIn the event this information is protected by the Federal Confidentiality of Alcohol and Drug Abuse Patient Records regulations: The Federal rules restrict any use of the information to criminally investigate or prosecute any alcohol or drug abuse patient.[facility] HospitalIn the event this information is protected by the Federal Confidentiality of Alcohol and Drug Abuse Patient Records regulations: The Federal rules restrict any use of the information to criminally investigate or prosecute any alcohol or drug abuse patient.[facility] HospitalIn the event this information is protected by the Federal Confidentiality of Alcohol and Drug Abuse Patient Records regulations: The Federal rules restrict any use of the information to criminally investigate or prosecute any alcohol or drug abuse patient.[facility] HospitalIn the event this information is protected by the Federal Confidentiality of Alcohol and Drug Abuse Patient Records regulations: The Federal rules restrict any use of the information to criminally investigate or prosecute any alcohol or drug abuse patient.[facility]In the event this information is protected by the Federal Confidentiality of Alcohol and Drug Abuse Patient Records regulations: The Federal rules restrict any use of the information to criminally investigate or prosecute any alcohol or drug abuse patient.[facility] HospitalIn the event this information is protected by the Federal Confidentiality of Alcohol and Drug Abuse Patient Records regulations: The Federal rules restrict any use of the information to criminally investigate or prosecute any alcohol or drug abuse patient.[facility] HospitalIn the event this information is protected by the Federal Confidentiality of Alcohol and Drug Abuse Patient Records regulations: The Federal rules restrict any use of the information to criminally investigate or prosecute any alcohol or drug abuse patient.[facility] HospitalIn the event this information is protected by the Federal Confidentiality of Alcohol and Drug Abuse Patient Records regulations: The Federal rules restrict any use of the information to criminally investigate or prosecute any alcohol or drug abuse patient.[facility] HospitalIn the event this information is protected by the Federal Confidentiality of Alcohol and Drug Abuse Patient Records regulations: The Federal rules restrict any use of the information to criminally investigate or prosecute any alcohol or drug abuse patient.[facility] HospitalIn the event this information is protected by the Federal Confidentiality of Alcohol and Drug Abuse Patient Records regulations: The Federal rules restrict any use of the information to criminally investigate or prosecute any alcohol or drug abuse patient.[facility] HospitalIn the event this information is protected by the Federal Confidentiality of Alcohol and Drug Abuse Patient Records regulations: The Federal rules restrict any use of the information to criminally investigate or prosecute any alcohol or drug abuse patient.[facility] HospitalIn the event this information is protected by the Federal Confidentiality of Alcohol and Drug Abuse Patient Records regulations: The Federal rules restrict any use of the information to criminally investigate or prosecute any alcohol or drug abuse patient.[facility] HospitalIn the event this information is protected by the Federal Confidentiality of Alcohol and Drug Abuse Patient Records regulations: The Federal rules restrict any use of the information to criminally investigate or prosecute any alcohol or drug abuse patient.[facility] HospitalIn the event this information is protected by the Federal Confidentiality of Alcohol and Drug Abuse Patient Records regulations: The Federal rules restrict any use of the information to criminally investigate or prosecute any alcohol or drug abuse patient.[facility] HospitalIn the event this information is protected by the Federal Confidentiality of Alcohol and Drug Abuse Patient Records regulations: The Federal rules restrict any use of the information to criminally investigate or prosecute any alcohol or drug abuse patient.[facility] HospitalIn the event this information is protected by the Federal Confidentiality of Alcohol and Drug Abuse Patient Records regulations: The Federal rules restrict any use of the information to criminally investigate or prosecute any alcohol or drug abuse patient.[facility] HospitalIn the event this information is protected by the Federal Confidentiality of Alcohol and Drug Abuse Patient Records regulations: The Federal rules restrict any use of the information to criminally investigate or prosecute any alcohol or drug abuse patient.[facility] HospitalIn the event this information is protected by the Federal Confidentiality of Alcohol and Drug Abuse Patient Records regulations: The Federal rules restrict any use of the information to criminally investigate or prosecute any alcohol or drug abuse patient.[facility] HospitalIn the event this information is protected by the Federal Confidentiality of Alcohol and Drug Abuse Patient Records regulations: The Federal rules restrict any use of the information to criminally investigate or prosecute any alcohol or drug abuse patient.[facility] HospitalIn the event this information is protected by the Federal Confidentiality of Alcohol and Drug Abuse Patient Records regulations: The Federal rules restrict any use of the information to criminally investigate or prosecute any alcohol or drug abuse patient.[facility] HospitalIn the event this information is protected by the Federal Confidentiality of Alcohol and Drug Abuse Patient Records regulations: The Federal rules restrict any use of the information to criminally investigate or prosecute any alcohol or drug abuse patient.[facility] HospitalIn the event this information is protected by the Federal Confidentiality of Alcohol and Drug Abuse Patient Records regulations: The Federal rules restrict any use of the information to criminally investigate or prosecute any alcohol or drug abuse patient.[facility] HospitalIn the event this information is protected by the Federal Confidentiality of Alcohol and Drug Abuse Patient Records regulations: The Federal rules restrict any use of the information to criminally investigate or prosecute any alcohol or drug abuse patient.[facility] HospitalIn the event this information is protected by the Federal Confidentiality of Alcohol and Drug Abuse Patient Records regulations: The Federal rules restrict any use of the information to criminally investigate or prosecute any alcohol or drug abuse patient.[facility] HospitalIn the event this information is protected by the Federal Confidentiality of Alcohol and Drug Abuse Patient Records regulations: The Federal rules restrict any use of the information to criminally investigate or prosecute any alcohol or drug abuse patient.[facility] HospitalIn the event this information is protected by the Federal Confidentiality of Alcohol and Drug Abuse Patient Records regulations: The Federal rules restrict any use of the information to criminally investigate or prosecute any alcohol or drug abuse patient.[facility] HospitalIn the event this information is protected by the Federal Confidentiality of Alcohol and Drug Abuse Patient Records regulations: The Federal rules restrict any use of the information to criminally investigate or prosecute any alcohol or drug abuse patient.[facility] HospitalIn the event this information is protected by the Federal Confidentiality of Alcohol and Drug Abuse Patient Records regulations: The Federal rules restrict any use of the information to criminally investigate or prosecute any alcohol or drug abuse patient.[facility] HospitalIn the event this information is protected by the Federal Confidentiality of Alcohol and Drug Abuse Patient Records regulations: The Federal rules restrict any use of the information to criminally investigate or prosecute any alcohol or drug abuse patient.[facility] HospitalIn the event this information is protected by the Federal Confidentiality of Alcohol and Drug Abuse Patient Records regulations: The Federal rules restrict any use of the information to criminally investigate or prosecute any alcohol or drug abuse patient.[facility] HospitalIn the event this information is protected by the Federal Confidentiality of Alcohol and Drug Abuse Patient Records regulations: The Federal rules restrict any use of the information to criminally investigate or prosecute any alcohol or drug abuse patient.[facility] HospitalIn the event this information is protected by the Federal Confidentiality of Alcohol and Drug Abuse Patient Records regulations: The Federal rules restrict any use of the information to criminally investigate or prosecute any alcohol or drug abuse patient.[facility] HospitalIn the event this information is protected by the Federal Confidentiality of Alcohol and Drug Abuse Patient Records regulations: The Federal rules restrict any use of the information to criminally investigate or prosecute any alcohol or drug abuse patient.[facility] HospitalIn the event this information is protected by the Federal Confidentiality of Alcohol and Drug Abuse Patient Records regulations: The Federal rules restrict any use of the information to criminally investigate or prosecute any alcohol or drug abuse patient.[facility] HospitalIn the event this information is protected by the Federal Confidentiality of Alcohol and Drug Abuse Patient Records regulations: The Federal rules restrict any use of the information to criminally investigate or prosecute any alcohol or drug abuse patient.[facility] HospitalIn the event this information is protected by the Federal Confidentiality of Alcohol and Drug Abuse Patient Records regulations: The Federal rules restrict any use of the information to criminally investigate or prosecute any alcohol or drug abuse patient.[facility] HospitalIn the event this information is protected by the Federal Confidentiality of Alcohol and Drug Abuse Patient Records regulations: The Federal rules restrict any use of the information to criminally investigate or prosecute any alcohol or drug abuse patient.[facility] HospitalIn the event this information is protected by the Federal Confidentiality of Alcohol and Drug Abuse Patient Records regulations: The Federal rules restrict any use of the information to criminally investigate or prosecute any alcohol or drug abuse patient.[facility] HospitalIn the event this information is protected by the Federal Confidentiality of Alcohol and Drug Abuse Patient Records regulations: The Federal rules restrict any use of the information to criminally investigate or prosecute any alcohol or drug abuse patient.[facility] HospitalIn the event this information is protected by the Federal Confidentiality of Alcohol and Drug Abuse Patient Records regulations: The Federal rules restrict any use of the information to criminally investigate or prosecute any alcohol or drug abuse patient.[facility] HospitalIn the event this information is protected by the Federal Confidentiality of Alcohol and Drug Abuse Patient Records regulations: The Federal rules restrict any use of the information to criminally investigate or prosecute any alcohol or drug abuse patient.[facility] HospitalIn the event this information is protected by the Federal Confidentiality of Alcohol and Drug Abuse Patient Records regulations: The Federal rules restrict any use of the information to criminally investigate or prosecute any alcohol or drug abuse patient.[facility] HospitalIn the event this information is protected by the Federal Confidentiality of Alcohol and Drug Abuse Patient Records regulations: The Federal rules restrict any use of the information to criminally investigate or prosecute any alcohol or drug abuse patient.[facility] HospitalIn the event this information is protected by the Federal Confidentiality of Alcohol and Drug Abuse Patient Records regulations: The Federal rules restrict any use of the information to criminally investigate or prosecute any alcohol or drug abuse patient.[facility] HospitalIn the event this information is protected by the Federal Confidentiality of Alcohol and Drug Abuse Patient Records regulations: The Federal rules restrict any use of the information to criminally investigate or prosecute any alcohol or drug abuse patient.[facility] HospitalIn the event this information is protected by the Federal Confidentiality of Alcohol and Drug Abuse Patient Records regulations: The Federal rules restrict any use of the information to criminally investigate or prosecute any alcohol or drug abuse patient.[facility] HospitalIn the event this information is protected by the Federal Confidentiality of Alcohol and Drug Abuse Patient Records regulations: The Federal rules restrict any use of the information to criminally investigate or prosecute any alcohol or drug abuse patient.[facility] HospitalIn the event this information is protected by the Federal Confidentiality of Alcohol and Drug Abuse Patient Records regulations: The Federal rules restrict any use of the information to criminally investigate or prosecute any alcohol or drug abuse patient.[facility] HospitalIn the event this information is protected by the Federal Confidentiality of Alcohol and Drug Abuse Patient Records regulations: The Federal rules restrict any use of the information to criminally investigate or prosecute any alcohol or drug abuse patient.[facility] HospitalIn the event this information is protected by the Federal Confidentiality of Alcohol and Drug Abuse Patient Records regulations: The Federal rules restrict any use of the information to criminally investigate or prosecute any alcohol or drug abuse patient.[facility] HospitalIn the event this information is protected by the Federal Confidentiality of Alcohol and Drug Abuse Patient Records regulations: The Federal rules restrict any use of the information to criminally investigate or prosecute any alcohol or drug abuse patient.[facility] HospitalIn the event this information is protected by the Federal Confidentiality of Alcohol and Drug Abuse Patient Records regulations: The Federal rules restrict any use of the information to criminally investigate or prosecute any alcohol or drug abuse patient.[facility] HospitalIn the event this information is protected by the Federal Confidentiality of Alcohol and Drug Abuse Patient Records regulations: The Federal rules restrict any use of the information to criminally investigate or prosecute any alcohol or drug abuse patient.[facility] HospitalIn the event this information is protected by the Federal Confidentiality of Alcohol and Drug Abuse Patient Records regulations: The Federal rules restrict any use of the information to criminally investigate or prosecute any alcohol or drug abuse patient.[facility] HospitalIn the event this information is protected by the Federal Confidentiality of Alcohol and Drug Abuse Patient Records regulations: The Federal rules restrict any use of the information to criminally investigate or prosecute any alcohol or drug abuse patient.[facility] HospitalIn the event this information is protected by the Federal Confidentiality of Alcohol and Drug Abuse Patient Records regulations: The Federal rules restrict any use of the information to criminally investigate or prosecute any alcohol or drug abuse patient.[facility] HospitalIn the event this information is protected by the Federal Confidentiality of Alcohol and Drug Abuse Patient Records regulations: The Federal rules restrict any use of the information to criminally investigate or prosecute any alcohol or drug abuse patient.[facility] HospitalIn the event this information is protected by the Federal Confidentiality of Alcohol and Drug Abuse Patient Records regulations: The Federal rules restrict any use of the information to criminally investigate or prosecute any alcohol or drug abuse patient.[facility] HospitalIn the event this information is protected by the Federal Confidentiality of Alcohol and Drug Abuse Patient Records regulations: The Federal rules restrict any use of the information to criminally investigate or prosecute any alcohol or drug abuse patient.[facility] HospitalIn the event this information is protected by the Federal Confidentiality of Alcohol and Drug Abuse Patient Records regulations: The Federal rules restrict any use of the information to criminally investigate or prosecute any alcohol or drug abuse patient.[facility]In the event this information is protected by the Federal Confidentiality of Alcohol and Drug Abuse Patient Records regulations: The Federal rules restrict any use of the information to criminally investigate or prosecute any alcohol or drug abuse patient.[facility] HospitalIn the event this information is protected by the Federal Confidentiality of Alcohol and Drug Abuse Patient Records regulations: The Federal rules restrict any use of the information to criminally investigate or prosecute any alcohol or drug abuse patient.[facility] HospitalIn the event this information is protected by the Federal Confidentiality of Alcohol and Drug Abuse Patient Records regulations: The Federal rules restrict any use of the information to criminally investigate or prosecute any alcohol or drug abuse patient.[facility]In the event this information is protected by the Federal Confidentiality of Alcohol and Drug Abuse Patient Records regulations: The Federal rules restrict any use of the information to criminally investigate or prosecute any alcohol or drug abuse patient.[facility] HospitalIn the event this information is protected by the Federal Confidentiality of Alcohol and Drug Abuse Patient Records regulations: The Federal rules restrict any use of the information to criminally investigate or prosecute any alcohol or drug abuse patient.[facility] HospitalIn the event this information is protected by the Federal Confidentiality of Alcohol and Drug Abuse Patient Records regulations: The Federal rules restrict any use of the information to criminally investigate or prosecute any alcohol or drug abuse patient.[facility] HospitalIn the event this information is protected by the Federal Confidentiality of Alcohol and Drug Abuse Patient Records regulations: The Federal rules restrict any use of the information to criminally investigate or prosecute any alcohol or drug abuse patient.[facility] HospitalIn the event this information is protected by the Federal Confidentiality of Alcohol and Drug Abuse Patient Records regulations: The Federal rules restrict any use of the information to criminally investigate or prosecute any alcohol or drug abuse patient.[facility] HospitalIn the event this information is protected by the Federal Confidentiality of Alcohol and Drug Abuse Patient Records regulations: The Federal rules restrict any use of the information to criminally investigate or prosecute any alcohol or drug abuse patient.[facility]In the event this information is protected by the Federal Confidentiality of Alcohol and Drug Abuse Patient Records regulations: The Federal rules restrict any use of the information to criminally investigate or prosecute any alcohol or drug abuse patient.[facility] HospitalIn the event this information is protected by the Federal Confidentiality of Alcohol and Drug Abuse Patient Records regulations: The Federal rules restrict any use of the information to criminally investigate or prosecute any alcohol or drug abuse patient.[facility] HospitalIn the event this information is protected by the Federal Confidentiality of Alcohol and Drug Abuse Patient Records regulations: The Federal rules restrict any use of the information to criminally investigate or prosecute any alcohol or drug abuse patient.[facility] HospitalIn the event this information is protected by the Federal Confidentiality of Alcohol and Drug Abuse Patient Records regulations: The Federal rules restrict any use of the information to criminally investigate or prosecute any alcohol or drug abuse patient.[facility]In the event this information is protected by the Federal Confidentiality of Alcohol and Drug Abuse Patient Records regulations: The Federal rules restrict any use of the information to criminally investigate or prosecute any alcohol or drug abuse patient.[facility]In the event this information is protected by the Federal Confidentiality of Alcohol and Drug Abuse Patient Records regulations: The Federal rules restrict any use of the information to criminally investigate or prosecute any alcohol or drug abuse patient.[facility]In the event this information is protected by the Federal Confidentiality of Alcohol and Drug Abuse Patient Records regulations: The Federal rules restrict any use of the information to criminally investigate or prosecute any alcohol or drug abuse patient.[facility]In the event this information is protected by the Federal Confidentiality of Alcohol and Drug Abuse Patient Records regulations: The Federal rules restrict any use of the information to criminally investigate or prosecute any alcohol or drug abuse patient.[facility]In the event this information is protected by the Federal Confidentiality of Alcohol and Drug Abuse Patient Records regulations: The Federal rules restrict any use of the information to criminally investigate or prosecute any alcohol or drug abuse patient.[facility]In the event this information is protected by the Federal Confidentiality of Alcohol and Drug Abuse Patient Records regulations: The Federal rules restrict any use of the information to criminally investigate or prosecute any alcohol or drug abuse patient.[facility]In the event this information is protected by the Federal Confidentiality of Alcohol and Drug Abuse Patient Records regulations: The Federal rules restrict any use of the information to criminally investigate or prosecute any alcohol or drug abuse patient.[facility]In the event this information is protected by the Federal Confidentiality of Alcohol and Drug Abuse Patient Records regulations: The Federal rules restrict any use of the information to criminally investigate or prosecute any alcohol or drug abuse patient.[facility]In the event this information is protected by the Federal Confidentiality of Alcohol and Drug Abuse Patient Records regulations: The Federal rules restrict any use of the information to criminally investigate or prosecute any alcohol or drug abuse patient.[facility]In the event this information is protected by the Federal Confidentiality of Alcohol and Drug Abuse Patient Records regulations: The Federal rules restrict any use of the information to criminally investigate or prosecute any alcohol or drug abuse patient.[facility]In the event this information is protected by the Federal Confidentiality of Alcohol and Drug Abuse Patient Records regulations: The Federal rules restrict any use of the information to criminally investigate or prosecute any alcohol or drug abuse patient.[facility]In the event this information is protected by the Federal Confidentiality of Alcohol and Drug Abuse Patient Records regulations: The Federal rules restrict any use of the information to criminally investigate or prosecute any alcohol or drug abuse patient.[facility]In the event this information is protected by the Federal Confidentiality of Alcohol and Drug Abuse Patient Records regulations: The Federal rules restrict any use of the information to criminally investigate or prosecute any alcohol or drug abuse patient.[facility] HospitalIn the event this information is protected by the Federal Confidentiality of Alcohol and Drug Abuse Patient Records regulations: The Federal rules restrict any use of the information to criminally investigate or prosecute any alcohol or drug abuse patient.[facility] Reason for Visit (unrecogniz ed section [...] NEW HIGH MDM [id number] MINUTES Comfort Patterson, GM.[employer] [id number] [place] [address] Referral ID Status Reason Start Date Expiration Date Visits Requested Visits Authorized [id number] Pending Review PCP Requested Referral 10/28/2021 10/07/2022 [...] RSPSE SPMTRY PRE&POST-BRNCDILAT ADMN Guillaume Dominguez MD [address] [place] [address] [facility] [address] [place] [address] Referral ID Status Reason Start Date Expiration Date V isits Requested Visits Authorized [id number] Closed Auto-Generate d Referral 04/27/2022 05/27/2023 1 1 Specialty Diagnoses / Procedures Referred By Contac t Referred To Contact [facility] Diagnoses FIELD (dyspnea on exertion) Chronic cough Procedures LUNG VOLUMES Guillaume Dominguez MD [address] [place] [address] [facility] [address] [place] [id number] Referral ID Status Reason Start Date Expiration Date V isits Requested Visits Authorized [id number] Closed Auto-Generate d Referral 04/28/2022 05/30/2022 1 [...] EVALUATION HIGH COMPLEX 45 MINS Oralia Garcia, SWITCH OPERATORS SUPERVISOR.TRAINING AND DEVELOPMENT REP [address] [place] [address] [facility] [address] [address] Referral ID Status Reason Start Date Expiration Date V isits Requested Visits Authorized [id number] Closed Auto-Generate d Referral 05/31/2022 05/30/2023 1 [...] MIN. Juanita Wharton, PT, DPT [address] [place] [address] [facility] [address] [address] Referral ID Status Reason Start Date Expiration Date Visits Requested Visits Authorized [id number] Authorized PCP Requested Referral Auto-Generate d Referral [...] Wharton, PT, DPT [address] [place] [address] [facility] [address] [address] Reason Onset Date Comments Refill Request 09/23/2022 Reason Onset Date Comments Refill Request 09/25/2022 Reason Comments Anticoagulation Referral ID Status Reason Start Date Expiration Date V isits Requested Visits Authorized [id number] Closed PCP Requested Referral Auto-Generated Referral 08/19/2022 [...] EA 15 MIN. 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 Follow Up Non-insulin Dependent Diabetes Mellitus Reason Comments Medication Problem Reason Comments Cardiology Follow Up N/P Saw Dr Aniya madrid 11/03/[address] Kayleigh Dominguez 08/15/2022 FIELD Irregular heart rhythmECG 08/15/2022ZIO 11/21/2021ECHO 10/17/2021ECG TODAY SOB, on going Needs to est Specialty Diagnoses / Procedures Referred By Liliana t Referred To Contact Cardiology Diagnoses Irregular heart rhythm FIELD (dyspnea on exertion) Premature atrial complexes Procedures CONSULT TO CARDIOLOGY OFFICE/OUTPATIENT [facility] 60-74 MINUTES Guillaume Dominguez MD [address] [place] [address] Maykel Whitfield, DO [address] [address] Referral ID Status Reason Start Date Expiration Date Visits Requested Visits Authorized [id number] Pending Review PCP Requested Referral 08/15/2022 08/15/2023 1 1 Reason Comments Forms Reason Comments Reminder Call Reason Onset Date Comments Recheck Immunizations 02/02/2023 Flu vaccination Reason Onset Date Comments Refill Request 02/19/2023 Reason Comments Refill Request Reason Comments Non-insulin Dependent Diabetes Mellitus Reason Onset Date Comments Established Patient Memory issue s. Breast Problem 05/14/2023 Mammogram at [facility] Reason Comments Follow Up Room 12We don't kno w why we are here.ECHO, ECG, Stress results Reason Comments Abnormal mammogram letter Reason Comments Mammogram Result Call Back Reason Comments Brain Wellness Specialty Diagnoses / Procedures Referred By Liliana silva Referred To Contact Diagnoses Memory difficulties Procedures CONSULT TO [facility] OFFICE/OUTPATIENT [facility] 60 MINUTES Comfort Patterson APRN.CNS [address] [place] [address] Referral ID Status Reason Start Date Expiration Date V isits Requested Visits Authorized [id number] Closed PCP Requested Referral 06/15/2023 06/14/2024 1 [...] requesting allergy list to be faxed to [facility] Reason Comments Cardiac Clearance Anticoagulation Reason Comments Follow Up Back Pain Reason Comments Faxed to [facility] Reason Comments F/U 6 months Reason Comments Apostolic halfway requesting record s Reason Comments Established Patient Reason Comments Medication Dosage Adjustment Reason Onset Date Comments Population Health Navigation Outreach 08/17/2024 [facility] Reason Onset Date Comments Population Health Navigation Outreach 09/18/2024 [facility] Care Teams (unrecognized sec tion and content) Width Stripper Relationship Specialty Start Date End Date Guillaume Dominguez MD [address] [place] [address] PCP - General 07/30/04 Width Stripper Relationship Specialty Start Date End Date Guillaume Dominguez MD [address] [place] [address] PCP - General 07/30/04 Width Stripper Relationship Specialty Start Date End Date Guillaume Dominguez MD [address] [place] [address] PCP - General 07/30/04 Width Stripper Relationship Specialty Start Date End Date Guillaume Dominguez MD [facility] [place] [address] PCP - General 07/30/04 Width Stripper Relationship Specialty Start Date End Date Guillaume Dominguez MD [facility] [place] [address] PCP - General 07/30/04 Width Stripper Relationship Specialty Start Date End Date Guillaume Dominguez MD [address] [place] [address] [place] [address] PCP - General 07/30/04 Width Stripper Relationship Specialty Start Date End Date Guillaume Dominguez MD [address] [facility] [place] [address] PCP - General 07/30/04 Width Stripper Relationship Specialty Start Date End Date Guillaume Dominguez MD [address] [facility] [place] [address] PCP - General 07/30/04 Width Stripper Relationship Specialty Start Date End Date Guillaume Dominguez MD [address] [place] [address], [place] [address] PCP - General 07/30/04 Width Stripper Relationship Specialty Start Date End Date Guillaume Dominguez MD [address] [place] [address], [place] [address] PCP - General 07/30/04 Width Stripper Relationship Specialty Start Date End Date Guillaume Dominguez MD [address] [place] [address], [place] [address] PCP - General 07/30/04 Width Stripper Relationship Specialty Start Date End Date Guillaume Dominguez MD [address] [place] [address], [place] [address] PCP - General 07/30/04 Width Stripper Relationship Specialty Start Date End Date Guillaume Dominguez MD [address] [place] [address], [place] [address] PCP - General 07/30/04 Width Stripper Relationship Specialty Start Date End Date Guillaume Dominguez MD [address] [place] [address], [place] [address] PCP - General 07/30/04 Width Stripper Relationship Specialty Start Date End Date Guillaume Dominguez MD [address] [place] [address], [place] [address] PCP - General 07/30/04 Width Stripper Relationship Specialty Start Date End Date Guillaume Dominguez MD [address] [facility] [place] [address] PCP - General 07/30/04 Width Stripper Relationship Specialty Start Date End Date Guillaume Dominguez MD [address] [facility] [place] [address] PCP - General 07/30/04 Width Stripper Relationship Specialty Start Date End Date Guillaume Dominguez MD [address] [place] [address], [place] [address] PCP - General 07/30/04 Width Stripper Relationship Specialty Start Date End Date Guillaume Dominguez MD [address] [place] [address], [place] [address] PCP - General 07/30/04 Width Stripper Relationship Specialty Start Date End Date Guillaume Dominguez MD [address] [place] [address], [place] [address] PCP - General 07/30/04 Width Stripper Relationship Specialty Start Date End Date Guillaume Dominguez MD [facility] [place] [address] PCP - General 07/30/04 Width Stripper Relationship Specialty Start Date End Date Guillaume Dominguez MD [address] [place] [address], [place] [address] PCP - General 07/30/04 Width Stripper Relationship Specialty Start Date End Date Guillaume Dominguez MD [facility] [place] [address] PCP - General 07/30/04 Width Stripper Relationship Specialty Start Date End Date Guillaume Dominguez MD [address] [place] [address], [place] [address] PCP - General 07/30/04 Width Stripper Relationship Specialty Start Date End Date Guillaume Dominguez MD [address] [facility] [place] [address] PCP - General 07/30/04 Width Stripper Relationship Specialty Start Date End Date Guillaume Dominguez MD [address] [facility] [place] [address] PCP - General 07/30/04 Width Stripper Relationship Specialty Start Date End Date Guillaume Dominguez MD [address] [place] [address], [place] [address] PCP - General 07/30/04 Width Stripper Relationship Specialty Start Date End Date Guillaume Dominguez MD [address] [place] [address], [place] [address] PCP - General 07/30/04 Width Stripper Relationship Specialty Start Date End Date Guillaume Dominguez MD [facility] [place] [address] PCP - General 07/30/04 Width Stripper Relationship Specialty Start Date End Date Guillaume Dominguez MD [facility] [place] [address] PCP - General 07/30/04 Width Stripper Relationship Specialty Start Date End Date Guillaume Dominguez MD [facility] [place] [address] PCP - General 07/30/04 Width Stripper Relationship Specialty Start Date End Date Guillaume Dominguez MD [facility] [place] [address] PCP - General 07/30/04 Width Stripper Relationship Specialty Start Date End Date Guillaume Dominguez MD [address] [place] [address], [place] [address] PCP - General 07/30/04 Width Stripper Relationship Specialty Start Date End Date Guillaume Dominguez MD [address] [place] [address] PCP - General 07/30/04 Width Stripper Relationship Specialty Start Date End Date Guillaume Dominguez MD [address] [place] [address] PCP - General 07/30/04 Width Stripper Relationship Specialty Start Date End Date Guillaume Dominguez MD [address] [place] [address] PCP - General 07/30/04 Width Stripper Relationship Specialty Start Date End Date Guillaume Dominguez MD [address] [place] [address] PCP - General 07/30/04 Width Stripper Relationship Specialty Start Date End Date Guillaume Dominguez MD [address] [place] [address] PCP - General 07/30/04 Width Stripper Relationship Specialty Start Date End Date Guillaume Dominguez MD [address] [place] [address] PCP - General 07/30/04 Width Stripper Relationship Specialty Start Date End Date Guillaume Dominguez MD [address] [place] [address] PCP - General 07/30/04 Width Stripper Relationship Specialty Start Date End Date Guillaume Dominguez MD [address] [place] [address] PCP - General 07/30/04 Width Stripper Relationship Specialty Start Date End Date Giullaume Dominguez MD [address] [place] [address] PCP - General 07/30/04 Width Stripper Relationship Specialty Start Date End Date Guillaume Dominguez MD [address] [place] [address] PCP - General 07/30/04 Width Stripper Relationship Specialty Start Date End Date Guillaume Dominguez MD [address] [place] [address] PCP - General 07/30/04 Team Status: Active Member Role Status Dates Dr. Guilluame Dominguez MD Family Provider Active Dr. Guillaume Dominguez MD Primary Care Provider Active Team Status: Inactive Member Role Status Dates Dr. Guillaume Dominguez MD Primary Care Provider Active Dr. Natalya Medina MD Emergency Provider Active Width Stripper Relationship Specialty Start Date End Date Guillaume Dominguez MD [address] [place] [address] PCP - General 07/30/04 Width Stripper Relationship Specialty Start Date End Date Guillaume Doimnguez MD [address] [place] [address] PCP - General 07/30/04 Width Stripper Relationship Specialty Start Date End Date Guillaume Dominguez MD [address] [place] [address] PCP - General 07/30/04 Team Status: Inactive Member Role Status Dates Dr. Guillaume Dominguez MD Primary Care Provider Active Dr. Natalya Medina MD Attending Provider, Emergency Provider Active Team Status: Inactive Member Role Status Dates Dr. Guillaume Dominguez MD Primary Care Provider Active Dr. Kerwin Kumar DO Emergency Provider Active Width Stripper Relationship Specialty Start Date End Date Guillaume Dominguez MD [address] [place] [address] PCP - General 07/30/04 Width Stripper Relationship Specialty Start Date End Date Guillaume Dominguez MD [address] [place] [address] PCP - General 07/30/04 Width Stripper Relationship Specialty Start Date End Date Guillaume Dominguez MD [address] [place] [address] PCP - General 07/30/04 Width Stripper Relationship Specialty Start Date End Date Guillaume Dominguez MD [address] [place] [address] PCP - General 07/30/04 Width Stripper Relationship Specialty Start Date End Date Guillaume Dominguez MD [address] [place] [address] PCP - General 07/30/04 Width Stripper Relationship Specialty Start Date End Date Guillaume Dominguez MD [address] [place] [address] PCP - General 07/30/04 Width Stripper Relationship Specialty Start Date End Date Guillaume Dominguez MD [address] [place] [address] PCP - General 07/30/04 Width Stripper Relationship Specialty Start Date End Date Guillaume Dominguez MD [address] [place] [address] PCP - General 07/30/04 Width Stripper Relationship Specialty Start Date End Date Guillaume Dominguez MD [address] [place] [address] PCP - General 07/30/04 Width Stripper Relationship Specialty Start Date End Date Guillaume Dominguez MD [address] [place] [address] PCP - General 07/30/04 Width Stripper Relationship Specialty Start Date End Date Guillaume Dominguez MD [address] [place] [address] PCP - General 07/30/04 Width Stripper Relationship Specialty Start Date End Date Guillaume Dominguez MD [address] [place] [address] PCP - General 07/30/04 Width Stripper Relationship Specialty Start Date End Date Guillaume Dominguez MD [address] [place] [address] PCP - General 07/30/04 Width Stripper Relationship Specialty Start Date End Date Guillaume Dominguez MD [address] [place] [address] PCP - General 07/30/04 Width Stripper Relationship Specialty Start Date End Date Guillaume Dominguez MD [address] [place] [address] PCP - General 07/30/04 Width Stripper Relationship Specialty Start Date End Date Guillaume Dominguez MD [address] [facility] [place] [address] PCP - General 07/30/04 Width Stripper Relationship Specialty Start Date End Date Guillaume Dominguez MD [address] [facility] [place] [address] PCP - General 07/30/04 Width Stripper Relationship Specialty Start Date End Date Guillaume Dominguez MD [address] [place] [address] PCP - General 07/30/04 Width Stripper Relationship Specialty Start Date End Date Guillaume Dominguez MD [address] [place] [address] PCP - General 07/30/04 Width Stripper Relationship Specialty Start Date End Date Guillaume Dominguez MD [address] [place] [address] PCP - General 07/30/04 Width Stripper Relationship Specialty Start Date End Date Guillaume Dominguez MD [address] [place] [address] PCP - General 07/30/04 Width Stripper Relationship Specialty Start Date End Date Guillaume Dominguez MD [address] [facility] [place] [address] PCP - General 07/30/04 Width Stripper Relationship Specialty Start Date End Date Guillaume Dominguez MD [address] [place] [address] PCP - General 07/30/04 Width Stripper Relationship Specialty Start Date End Date Guillaume Dominguez MD [address] [place] [address] PCP - General 07/30/04 Width Stripper Relationship Specialty Start Date End Date Guillaume Dominguez MD [address] [place] [address] PCP - General 07/30/04 Width Stripper Relationship Specialty Start Date End Date Guillaume Dominguez MD [address] [place] [address] PCP - General 07/30/04 Comfort Patterson, SWITCH OPERATORS SUPERVISOR.SURFACE BOSS [address] [place] [address] Centrifugal Extractor Operator Internal Medicine 05/08/24 Josefa Caputo SWITCH OPERATORS SUPERVISOR.TRAINING AND DEVELOPMENT REP [address] [place] [address] Centrifugal Extractor Operator Internal Medicine 05/08/24 Width Stripper Relationship Specialty Start Date End Date Guillaume Dominguez MD [address] [place] [address] PCP - General 07/30/04 Comfort Patterson, SWITCH OPERATORS SUPERVISOR.SURFACE BOSS [address] [place] [address] Centrifugal Extractor Operator Internal Medicine 05/08/24 Josefa Caputo SWITCH OPERATORS SUPERVISOR.TRAINING AND DEVELOPMENT REP [address] [place] [address] Centrifugal Extractor Operator Internal Medicine 05/08/24 Width Stripper Relationship Specialty Start Date End Date Guillaume Dominguez MD [address] [place] [address] PCP - General 07/30/04 Comfort Patterson APRN.SURFACE BOSS [address] [place] [address] Centrifugal Extractor Operator Internal Medicine 05/08/24 Josefa Caputo SWITCH OPERATORS SUPERVISOR.TRAINING AND DEVELOPMENT REP [address] [place] [address] Centrifugal Extractor Operator Internal Medicine 05/08/24 Width Stripper Relationship Specialty Start Date End Date Guillaume Dominguez MD [address] [place] [address] PCP - General 07/30/04 Width Stripper Relationship Specialty Start Date End Date Guillaume Dominguez MD [address] [place] [address] PCP - General 07/30/04 Comfort Patterson SWITCH OPERATORS SUPERVISOR.SURFACE BOSS [address] [place] [address] Centrifugal Extractor Operator Internal Medicine 05/08/24 Josefa Caputo SWITCH OPERATORS SUPERVISOR.TRAINING AND DEVELOPMENT REP [address] [place] [address] Centrifugal Extractor Operator Internal Medicine 05/08/24 Width Stripper Relationship Specialty Start Date End Date Guillaume Dominguez MD [address] [place] [address] PCP - General 07/30/04 Comfort Patterson, SWITCH OPERATORS SUPERVISOR.SURFACE BOSS [address] [place] [address] Centrifugal Extractor Operator Internal Medicine 05/08/24 Josefa Caputo APRN.TRAINING AND DEVELOPMENT REP [address] [place] [address] Centrifugal Extractor Operator Internal Medicine 05/08/24 Width Stripper Relationship Specialty Start Date End Date Guillaume Dominguez MD [address] [place] [address] PCP - General 07/30/04 Comfort Patterson, SWITCH OPERATORS SUPERVISOR.SURFACE BOSS [address] [place] [address] Centrifugal Extractor Operator Internal Medicine 05/08/24 Josefa Caputo SWITCH OPERATORS SUPERVISOR.TRAINING AND DEVELOPMENT REP [address] [place] [address] Centrifugal Extractor Operator Internal Medicine 05/08/24 Width Stripper Relationship Specialty Start Date End Date Guillaume Dominguez [address] [place] [address] PCP - General Internal Medicine 08/02/24 Width Stripper Relationship Specialty Start Date End Date Guillaume Dominguez MD [address] [place] [address] PCP - General 07/30/04 Comfort Patterson, SWITCH OPERATORS SUPERVISOR.SURFACE BOSS [address] [place] [address] Centrifugal Extractor Operator Internal Medicine 05/08/24 Josefa Caputo APRN.TRAINING AND DEVELOPMENT REP [address] [place] [address] Centrifugal Extractor Operator Internal Medicine 05/08/24 Width Stripper Relationship Specialty Start Date End Date Guillaume Dominguez MD [address] [facility] [place] [address] PCP - General 07/30/04 Comfort Patterson, SWITCH OPERATORS SUPERVISOR.SURFACE BOSS [address] [facility] [place] [address] [facility] Internal Medicine 05/08/24 Josefa Caputo SWITCH OPERATORS SUPERVISOR.TRAINING AND DEVELOPMENT REP [address] [facility] [place] [address] [facility] Internal Medicine 05/08/24 Width Stripper Relationship Specialty Start Date End Date Guillaume Dominguez MD [address] [facility] [place] [address] PCP - General 07/30/04 Comfort Patterson, SWITCH OPERATORS SUPERVISOR.SURFACE BOSS [address] [facility] [place] [address] [facility] Internal Medicine 05/08/24 Josefa Caputo, SWITCH OPERATORS SUPERVISOR.TRAINING AND DEVELOPMENT REP [address] [facility] [place] [address] [facility] Internal Medicine 05/08/24 Team Status: Inactive [...] Provider Active Start: May 22, 2024 Deep Jose De Jesus BABCOCK MD Attending Provider Active S tart: [...] August 11, 2024 End: August 11, 2024 Width Stripper Relationship Specialty Start Date End Date Guillaume Dominguez MD [address] [place], [place] [address] PCP - General 07/30/04 Comfort Patterson APRN.SURFACE BOSS [address] [place], [place] [id number] Centrifugal Extractor Operator Internal Medicine 05/08/24 Josefa Caputo APRN.TRAINING AND DEVELOPMENT REP [address] [place], [place] [id number] Centrifugal Extractor Operator Internal Medicine 08/22/24 Team Status: Active Member [...] Provider Active S tart: September 26, 2024 Width Stripper Relationship Specialty Start Date End Date Guillaume Dominguez [address] [place], [place] [address] PCP - General Internal Medicine 08/02/24 Team [...] Provider Active S tart: October 31, 2024 Width Stripper Relationship Specialty Start Date End Date Guillaume Dominguez MD [address] [place], [place] [address] PCP - General 07/30/04 Josefa Caputo SWITCH OPERATORS SUPERVISOR.TRAINING AND DEVELOPMENT REP [address] [place], [place] [address] Centrifugal Extractor Operator Internal Medicine 08/22/24 Comfort Patterson APRN.SURFACE BOSS [address] [place], [place] [address] Centrifugal Extractor Operator Internal Medicine 10/18/24 Goals (unrecognized section and [...] BE BASED ON THE PRIMARY CLINICAL RECORDS. [facility]. provides no warranty or guarantee of the accuracy or completeness of information in this document.
[2025-05-14 07:40] LABS: Hematocrit 35.8 % (37-47); Hemoglobin 11.4 g/dL (12.0-15.0); Mean Corp Hgb Conc 31.8 g/dL (32-36); Mean Corpuscular Volume 92.5 fL (81-99); Mean Platelet Vol. 10.3 fl (6.2-12.0); Platelet Count 268 K/mm3 (150-450); RBC Distribution Width CV 14.6 % (11.6-14.6); RBC Distribution Width SD 49.8 fl (35.1-43.9); Red Blood Count 3.87 M/mm3 (4.2-5.4); White Blood Count 6.1 K/mm3 (4.4-11.0)
[2025-05-14 07:57] LABS: Anion Gap 10 (5-15); BUN 24 mg/dL (4-19); BUN/Creat Ratio 50.4 RATIO (10-20); Calcium,Total 9.5 mg/dL (7.6-11.0); Carbon Dioxide 25.7 mmol/L (21.0-32.0); Chloride 100 mmol/L (98-108); Glucose 171 mg/dL (70-99); Potassium 3.8 mmol/L (3.3-5.1)
== END ==
LOC: OLS.ACH 05:00
PROVIDERS: PCP Internal Medicine; Visit Provider Internal Medicine
DX: R93.2 Abnormal findings on diagnostic imaging of liver and biliary tract (principal); N31.9 Neuromuscular dysfunction of bladder, unspecified
CPT/HCPCS: 36415; 80048; 85027

== ENCOUNTER → 2025-05-28 05:00 | Outpatient (REF) | payer MEDICARE, SELFPAY ==
--- OUTSIDE RECORDS SUMMARY | 2025-05-28 03:54 | XMS RPT_ITS | CCD ---
Author Organization [facility] CliniSypr Care Team Providers Care Lithoduplicator Operator Name Role Phone ALLISON LEHMAN Unavailable Unavailable TALAMPAS, GUILLAUME Unavailable Unavailable TALAMPAS, GUILLAUME Unavailable Unavailable MORAIMA MONTELONGO Referring Unavailable Guillaume Dominguez MD Primary Care Provider Guillaume Dominguez MD Primary Care Provider Guillaume Dominguez MD Primary Care Provider Guillaume Dominguez MD Primary Care Provider MORAIMA MONTELONGO Attending Unavailable MORAIMA MONTELONGO Admitting Unavailable TALAMPJULIANNE, GUILLAUME Melody Primary Care Unavailable Patterson MANAGING EDITOR.CHEMICAL ENGINEERING TECHNICIAN, Comfort Unavailable Flynn MANAGING EDITOR.YARDING SUPERVISOR, Josefa Unavailable Flynn MANAGING EDITOR.YARDING SUPERVISOR, Josefa Unavailable Analia Guillaume Melody Primary Care Provider NWROSALINO, ENYINNA Attending Unavailable [place], ENYINNA Referring Unavailable TALAMPAS, GUILLAUME, Primary Care Unavailable TALAMPAS, GUILLAUME D Primary Care Unavailable [place], ENYINNA Attending Unavailable NIVIA VERMA Referring Unavailable TALAMPJULIANNE, GUILLAUME D Primary Care Unavailable Dr. Guillaume Dominguez MD Primary Care Provider Arden Leger MD Attending Provider [phone] Arden Leger MD Emergency Provider [phone] Jose De Jesus SCHMIDT, Deep Attending Provider Unavailable Jose De Jesus SCHMIDT, Deep Referring Provider Unavailable Flynn MANAGING EDITOR.HIMA Josefa Unavailable Dr. Guillaume Dominguez MD Primary [...] sources) irbesartan Drug Allergy 5 Swelling [facility] Aspirin (2 sources) Aspirin Drug Allergy 2 Anaphylaxis [facility] Cephalosporins (antibiotic) (2 sources) Cephalexin Drug Allergy 2 Rash, Diarrhea [facility] Work Phone: Cholesterol Absorption Inhibitors (2 sources) ezetimibe Drug Allergy 5 [facility] egg extract (2 sources) egg extract Drug Allergy 7 Diarrhea [facility] exenatide (2 sources) exenatide Drug Allergy 7 [facility] HMG-CoA Reductase Inhibitors (statins) (8 sources) rosuvastatin Drug Allergy 5 [facility] Macrolides (antibiotic) (2 sources) Erythromycin Drug Allergy 8 Myalgia [facility] metFORMIN (2 sources) metFORMIN Drug Allergy 8 GI Upset [facility] Niacin (4 sources) Niacin Drug Allergy 5 Unknown [facility] NSAIDs (2 sources) Etodolac Drug Allergy 1 Contraindicati on-Medical Surgical [facility] Work Phone: Opioid Agonists (2 sources) HYDROcodone Drug Allergy 3 Itching [facility] Penicillins (antibiotic) (2 sources) Penicillins Drug Allergy 5 Rash [facility] Sulfonamides (antibiotic) (2 sources) Sulfonamides (Antibiotic) Drug Allergy 5 Rash [facility] (20 sources) atorvastatin; Translations: [ATORVASTATIN] Drug Allergy 5 Unknown [facility] Repository (20 sources) egg extract; Translations: [EGG] Drug Allergy 7 Diarrhea [facility] Rep[facility] (20 sources) erythromycin; Translations: [ERYTHROMYCIN] Drug Allergy 8 Myalgia [facility] Repository (20 sources) etodolac; Translations: [ETODOLAC] Drug Allergy 1 Contraindicati on-Medical Surgical [facility] Repository (20 sources) exenatide; Translations: [EXENATIDE] Drug Allergy 7 Unknown [facility] Repository (20 sources) ezetimibe; Translations: [EZETIMIBE] Drug Allergy 5 Rash [facility] Repository (20 sources) irbesartan; Translations: [IRBESARTAN] Drug Allergy 5 Swelling [facility] Repository (20 sources) niacin; Translations: [NIACIN (ANTIHYPERLIPIDE VERN)] Drug Allergy 5 [facility] Repository (20 sources) NSAIDs; Translations: [NSAIDS (NON-STEROIDAL ANTI-INFLAMMATOR Y DRUG)] Propensity to adverse reactions (disorder) 1 Other: See Comments, Intolerance [facility] Repository (20 sources) Penicillins; Translations: [PENICILLINS] Propensity to adverse reactions (disorder) 5 [facility] Repository (20 sources) pravastatin; Translations: [PRAVASTATIN SODIUM] Drug Allergy 5 [facility] Repository (20 sources) rosuvastatin; Translations: [ROSUVASTATIN CALCIUM] Drug Allergy 5 [facility] Repository (20 sources) salicylic acid; Translations: [SALICYLATES] Drug Allergy 5 Anaphylaxis [facility] Repository (20 sources) simvastatin; Translations: [SIMVASTATIN] Drug Allergy 5 Rash [facility] Repository (20 sources) Sulfonamides (Antibiotic); Translations: [SULFA (SULFONAMIDE ANTIBIOTICS)] Propensity to adverse reactions (disorder) 5 [facility] Repository (3 sources) OTHER; Translations: [OTHER] Propensity to adverse reactions (disorder) 9 [facility] Repository (20 sources) metFORMIN; Translations: [METFORMIN] Drug Allergy 8 GI Upset [facility] Other [facility] Repository (20 sources) Niacin; Translations: [NIACIN] Drug Allergy 5 Unknown [facility] Repository (20 sources) duoderm [Other] Propensity to adverse reactions 9 Rash [facility] Work Phone: (20 sources) ointments [Other] Propensity to adverse reactions 9 [facility] (20 sources) tape [Other] Propensity to adverse reactions 8 [facility] (20 sources) Adhesive agent; Translations: [ADHESIVE] Allergy to substance 2 Itching [facility] (20 sources) Aspirin; Translations: [ASPIRIN] Drug Allergy 2 Anaphylaxis [facility] (3 sources) Egg Propensity to adverse reactions 2 Diarrhea [facility] Work Phone: [phone] (10 sources) Erythromycin Drug Allergy 2 Other [facility] (10 sources) Nonsteroidal Anti-inflammator y Compounds Propensity to adverse reactions 2 Other [facility] (10 sources) Pravastatin Drug Allergy 2 Rash [facility] (10 sources) rosuvastatin Drug Allergy 2 Unknown [facility] (10 sources) Shcwguz-Fda-Eif Reductase Inhibitor Allergy to substance 2 [facility] (3 sources) duoderm Allergy to substance 2 [facility] Work Phone: [phone] (3 sources) ointments Allergy to substance 2 [facility] Work Phone: [phone] (20 sources) Cephalexin; Translations: [CEPHALEXIN] Drug Allergy 2 Rash, Diarrhea [facility] Work Phone: (20 sources) HYDROcodone; Translations: [HYDROCODONE] Drug Allergy 3 Itching [facility] Work Phone: (8 sources) Dressing: Non-Medicated; Translations: [Dressing: Non-Medicated] Allergy to substance 3 Rash [facility] Comment on above: duoderm (20 sources) Adhesive Tape-Silicones; Translations: [ADHESIVE TAPE-SILICONES] Drug Intolerance 4 Itching [facility] Work Phone: (20 sources) oxyCODONE; Translations: [OXYCODONE] Drug Allergy 4 Mental Status Change, Itching [facility] Comment on above: per family (1 source) Aspirin Drug Allergy 4 [facility] Repository (1 source) Erythromycin Drug Allergy 4 [facility] Repository (1 source) HYDROcodone Drug Allergy 4 [facility] Repository (1 source) NSAIDs Drug allergy (disorder) 4 [facility] Repository (1 source) oxyCODONE Drug Allergy 4 [facility] Repository (1 source) Pravastatin Drug Allergy 4 [facility] Repository (1 source) rosuvastatin Drug Allergy 4 [facility] Repository (1 source) Gyazymr-Ewe-Gmo Reductase Inhibitor Drug allergy (disorder) 4 [facility] Repository Medications Current Medications Medication [...] itching docusate sodium 50 mg / sennosides, shelter 8.6 mg oral tablet (20 sources) Start: [...] Discontinued Start: 10-27-[address] [facility] once daily DULoxetine (CYMBALTA) 20 mg capsule Indications: Anxiety disorder, unspecified type , Radiculopathy, lumbar region , Chronic SI joint pain Take 1 capsule by mouth once daily. 30 capsule 2 10/27/2022 Active Comment on above: Take 1 capsule by mo [facility] once daily. take 1 capsule by mo [facility] once daily Take [address] [facility] once daily. ferrous sulfate 325 mg [...] above: Take 1 tablet by [facility] once daily. fluconazole 200 mg oral [...] 2 MONTHS Take 2 tablets by mo [facility] every 72 hours. Two (2) X [...] 0 February 01, 2024 12:00am lactobacillus acidophilus [id number] unt oral capsule (14 sources) lactobacillus acidophilus 100 mg (1 billion cell) cap(s) Take 1 capsule by mouth once daily. Biotinex (24/7 Card probiotic) Active lidocaine 0.05 mg/mg medicated patch [...] on above: Take 1 capsule by mo [facility] twice daily for 7 days. 24 hr oxybutynin chloride 10 mg extended release oral tablet (20 sources) Cholinergic Muscarinic Antagonist Start: 03-31-2019 End: 09-17-2023 take 1 tablet by mouth once daily oxybutynin ER (DITROPAN XL) 10 mg 24 hr tablet Take 1 tablet by mouth once daily. 90 tablet 1 09/17/2023 Active Start: 03-31-2019 take 1 tablet by [facility] every twenty-four hours at bedtime Oxybutynin [...] in NaCl (PF) 0.9% 10 mL injection (Team-MatchITY) polyethylene glycol 3350 [id number] mg powder for oral solution (13 sources) [...] once every month. To be administered at [facility] by nurse 1 mL 12 11/11/2023 [...] Start: 08-27-2020 take 2 tablets by mo [facility] twice daily, then take 1 tablet [...] on above: Take 2,500 mcg by mo [facility] once daily. Blood-Glucose Meter, Drum-type (ACCU-CHEK [...] above: USE DIRECTED. Blood-Glucose Meter,Continuous (DEXCOM G7 ASSEMBLER FINGER BUFFS) misc (20 sources) Start: 01-08-2023 End: 08-11-2023 Blood-Glucose Meter,Continuous (DEXCOM G7 ASSEMBLER FINGER BUFFS) misc Indications: Type 2 diabetes mellitus with peripheral neuropathy (HCC) use to check sugars 1 Each 0 01/08/2023 08/11/2023 Discontinued Start: 01-08-2023 Blood-Glucose Meter,Continuous (DEXCOM G7 ASSEMBLER FINGER BUFFS) misc Indications: Type 2 diabetes mellitus with peripheral neuropathy (HCC) use to check sugars 1 Each 0 01/08/2023 Active Start: 12-30-2022 End: 01-05-2023 Blood-Glucose Meter,Continuo us (DEXCOM G7 ASSEMBLER FINGER BUFFS) misc use to check sugars 1 Each 0 12/30/2022 01/05/2023 Discontinued Start: 12-30-2022 Blood-Glucose Meter,Continuous (DEXCOM G7 ASSEMBLER FINGER BUFFS) misc use to check sugars 1 Each [...] Comment on above: take 2 capsules by [facility] 1 hour prior to appointment diphenhydrAMINE hydrochloride [...] two at bedtime Take [address] [facility] three times daily for 180 days. As [...] on above: Take 4 tablets by mo [facility] daily with breakfast. methocarbamol 500 mg oral tablet (10 sources) Muscle Relaxant Start: 09-15-19 End: 10-15-19 take 1 tablet by mouth every twelve hours as needed methocarbamol (ROBAXIN) 500 mg tablet Take 1 tablet by mouth twice daily as needed. 60 tablet 0 09/14/2022 10/14/2022 Comment on above: Take 1 tablet by [facility] twice daily as needed. ondansetron 4 mg [...] Comment on above: Take 1 tablet by [facility] every 6 hours as needed for [...] sources) Long-term current use of anticoagulant; Translations: [buttermaker helper (current) use of anticoagulants] 03-01-2022 Episodic Other [...] (Bld) [Mass fraction] 6.3 % High <=5.6 [facility] Comment on above: Order Comment: 303-2 Result Comment: Norm al < 5.7 % Prediabetic 5.7 - 6.4 % Diabetic >or= 6.5 % Please note range changes. Performed By: #### L 503.0106, L501.9985 #### [facility] [address] [place], [address] Vitamin B12on 01-26-2025 Cobalamin (Vitamin B12) [Mass/Vol] 511 pg/mL Normal 180-914 [facility] Comment on above: Order Comment: 303-2 Performed By: #### L 503.0106, L501.9985 #### [facility] [address] [place], [address] Hemoglobin A1con 12-19-2024 HbA1c (Bld) [Mass fraction] 6.4 % High <=5.6 [facility] Comment on above: Order Comment: 303.2 Result Comment: Norm al < 5.7 % Prediabetic 5.7 - 6.4 % Diabetic >or= 6.5 % Please note range changes. Performed By: #### L 500.2500, L100.0100 #### [facility] [address] [place], [place], [address] Hemoglobin A1con 11-03-2024 HbA1c (Bld) [Mass fraction] 6.7 % High <=5.6 [facility] Comment on above: Order Comment: 303.2 Result Comment: Norm al < 5.7 % Prediabetic 5.7 - 6.4 % Diabetic >or= 6.5 % Please note range changes. Performed By: #### L 501.9985 #### [facility] [address] [place], [place], [id number] Absolute lymphocyte countOrd ered By: Deep Dela Cruz on 10-31-2024 Lymphocytes Auto (Unsp spec) [#/Vol] 1.07 10*3/uL 0.83-4.51 [facility] Absolute neutrophil countOrd ered By: Deep Dela Cruz on 10-31-2024 Neutrophils (Bld) [#/Vol] 12.1 10*3/uL High 2.0-7.7 [facility] Anion gap in Serum or Plasma Ordered By: Deep Dela Cruz on 10-31-2024 Anion gap [Moles/Vol] 12 mmol/L 5-15 [facility] Automated lymphocyte count a s percentage of total leukocytesOrdered By: Deep Dela Cruz on 10-31-2024 Lymphocytes/100 WBC Auto (Unsp spec) 7.5 % Low 19-41 [facility] BUN/creatinine ratioOrdered By: Deep Dela Cruz on 10-31-2024 Urea nitrogen/Creatinine [Mass ratio] 60.5 mg/mg High 10-20 [facility] Basic Metabolic Profile (BMP )on 10-31-2024 BUN/CRE 60.5 RATIO High 10-20 [facility] Comment on above: Order Comment: 303.2 Performed By: #### L 300.4310, L300.3900 #### [facility] [address] [place], [address] Calcium [Mass/Vol] 9.9 mg/dL Normal 7.6-11.0 [facility] Comment on above: Order Comment: 303.2 Performed By: #### L 300.4310, L300.3900 #### [facility] [address] [place], [address] Chloride [Moles/Vol] 102 mmol/L Normal 98-108 [facility] Comment on above: Order Comment: 303.2 Performed By: #### L 300.4310, L300.3900 #### [facility] [address] [place], [address] CO2 [Moles/Vol] 21.8 mmol/L Normal 21.0-32.0 [facility] Comment on above: Order Comment: 303.2 Performed By: #### L 300.4310, L300.3900 #### [facility] [address] [place], [address] Creatinine [Mass/Vol] 0.56 mg/dL Low 0.70-1.20 [facility] Comment on above: Order Comment: 303.2 Performed By: #### L 300.4310, L300.3900 #### [facility] [address] [place], [address] GAP 12 Normal 5-15 [facility] Comment on above: Order Comment: 303.2 Performed By: #### L 300.4310, L300.3900 #### [facility] [address] [place], [address] GFR/1.73 sq M.predicted among non-blacks MDRD (S/P/Bld) [Vol rate/Area] 91 mL/min/{1.73_m2} Normal >60 [facility] Comment on above: Order Comment: 303.2 Result Comment: mL/m in/1.73m2 CKD-EPI Creatinine Equation (2020) Performed By: #### L 300.4310, L300.3900 #### [facility] [address] [place], [address] Glucose [Mass/Vol] 161 mg/dL High 70-99 [facility] Comment on above: Order Comment: 303.2 Performed By: #### L 300.4310, L300.3900 #### [facility] [address] [place], [address] Potassium [Moles/Vol] 3.8 mmol/L Normal 3.3-5.1 [facility] Comment on above: Order Comment: 303.2 Performed By: #### L 300.4310, L300.3900 #### [facility] [address] [place], [address] Sodium [Moles/Vol] 135 mmol/L Normal 133-145 [facility] Comment on above: Order Comment: 303.2 Performed By: #### L 300.4310, L300.3900 #### [facility] [address] [place], [address] Urea nitrogen [Mass/Vol] 34 mg/dL High 4-19 [facility] Comment on above: Order Comment: 303.2 Performed By: #### L 300.4310, L300.3900 #### [facility] [address] [place], [address] Basophil percentageOrdered B y: Deep Dela rCuz on 10-31-2024 Basophils/100 WBC (Bld) 0.4 % 0-1 [facility] CBC W/Diff, Automatedon 06-0 Absolute Lymph 1.07 X10 3/uL Normal 0.83-4.51 [facility] Comment on above: Order Comment: 303.2 Performed By: #### L 500.2500, L100.0100 #### [facility] [address] [place], [address] Absolute Neut 12.1 X10 3/uL High 2.0-7.7 [facility] Comment on above: Order Comment: 303.2 Performed By: #### L 500.2500, L100.0100 #### [facility] [address] [place], [address] Basophils/100 WBC (Bld) 0.4 % Normal 0-1 [facility] Comment on above: Order Comment: 303.2 Performed By: #### L 500.2500, L100.0100 #### [facility] [address] [place], [address] Eosinophils/100 WBC (Bld) 0.1 % Normal 0-5 [facility] Comment on above: Order Comment: 303.2 Performed By: #### L 500.2500, L100.0100 #### [facility] [address] [place], [address] Erythrocyte distribution width (RBC) [Ratio] 15.0 % High 11.6-14.6 [facility] Comment on above: Order Comment: 303.2 Performed By: #### L 500.2500, L100.0100 #### [facility] [address] [place], [address] Hematocrit (Bld) [Volume fraction] 34.0 % Low 37-47 [facility] Comment on above: Order Comment: 303.2 Performed By: #### L 500.2500, L100.0100 #### [facility] [address] [place], [address] Hemoglobin (Bld) [Mass/Vol] 11.1 g/dL Low 12.0-15.0 [facility] Comment on above: Order Comment: 303.2 Performed By: #### L 500.2500, L100.0100 #### [facility] [address] [place], [address] IG% 2.400 High 0.0-0.9 [facility] Comment on above: Order Comment: 303.2 Result Comment: IG% - Immature Granulocytes (promyelocytes, myelocytes and metamyelocytes) > 1% indicates that a LEFT SHIFT is Present. Performed By: #### L 500.2500, L100.0100 #### [facility] [address] [place], [address] Lymphocytes/100 WBC (Bld) 7.5 % Low 19-41 [facility] Comment on above: Order Comment: 303.2 Performed By: #### L 500.2500, L100.0100 #### [facility] [address] [place], [address] MCH (RBC) [Entitic mass] 30.0 pg Normal 27.0-32.0 [facility] Comment on above: Order Comment: 303.2 Performed By: #### L 500.2500, L100.0100 #### [facility] [address] [place], [address] MCHC (RBC) [Mass/Vol] 32.6 g/dL Normal 32-36 [facility] Comment on above: Order Comment: 303.2 Performed By: #### L 500.2500, L100.0100 #### [facility] [address] [place], [address] MCV (RBC) [Entitic vol] 91.9 fL Normal 81-99 [facility] Comment on above: Order Comment: 303.2 Performed By: #### L 500.2500, L100.0100 #### [facility] [address] [place], [address] Monocytes/100 WBC (Bld) 5.6 % Normal 0-10 [facility] Comment on above: Order Comment: 303.2 Performed By: #### L 500.2500, L100.0100 #### [facility] [address] [place], [address] Neutrophils/100 WBC (Bld) 84.0 % High 47-70 [facility] Comment on above: Order Comment: 303.2 Performed By: #### L 500.2500, L100.0100 #### [facility] [address] [place], [address] Nucleated RBC (Bld) [#/Vol] 0 10*3/uL Normal 0-5 [facility] Comment on above: Order Comment: 303.2 Performed By: #### L 500.2500, L100.0100 #### [facility] [address] [place], [address] Platelet mean volume (Bld) [Entitic vol] 10.0 fL Normal 6.2-12.0 [facility] Comment on above: Order Comment: 303.2 Performed By: #### L 500.2500, L100.0100 #### [facility] [address] [place], [address] Platelets (Bld) [#/Vol] 555 10*3/uL High 150-450 [facility] Comment on above: Order Comment: 303.2 Performed By: #### L 500.2500, L100.0100 #### [facility] [address] [place], [address] RBC (Bld) [#/Vol] 3.70 10*6/uL Low 4.2-5.4 [facility] Comment on above: Order Comment: 303.2 Performed By: #### L 500.2500, L100.0100 #### [facility] [address] [place], [address] RDW SD 50.1 fl High 35.1-43.9 [facility] Comment on above: Order Comment: 303.2 Performed By: #### L 500.2500, L100.0100 #### [facility] [address] [place], [address] WBC (Bld) [#/Vol] 14.4 10*3/uL High 4.4-11.0 [facility] Comment on above: Order Comment: 303.2 Performed By: #### L 500.2500, L100.0100 #### [facility] [address] [place], [address] Carbon dioxide, total [Moles /volume] in Central venous bloodOrdered By: Deep Dela Cruz on 10-31-2024 CO2 [Moles/Vol] 21.8 mmol/L 21.0-32.0 [facility] Chloride assayOrdered By: Fried on 10-31-2024 Chloride [Moles/Vol] 102 mmol/L 98-108 [facility] Eosinophil percentageOrdered By: Deep Dela Cruz on 10-31-2024 Eosinophils/100 WBC (Bld) 0.1 % 0-5 [facility] Erythrocyte distribution wid th ratioOrdered By: Deep Dela Cruz on 10-31-2024 Erythrocyte distribution width (RBC) [Ratio] 15.0 % High 11.6-14.6 [facility] Erythrocyte distribution wid th standard deviationOrdered By: Deep Dela Cruz on 10-31-2024 Erythrocyte distribution width (RBC) [Ratio] 50.1 fl High 35.1-43.9 [facility] Glomerular filtration rate ( GFR) estimation/1.73 sq m using serum, plasma, or whole bOrdered By: Deep Dela Cruz on 10-31-2024 GFR/1.73 sq M.predicted among non-blacks MDRD (S/P/Bld) [Vol rate/Area] 91 mL/min/{1.73_m2} >60 [facility] Comment on above: mL/min/1.73m2 CKD-EP I Creatinine Equation (2020) Hematocrit Auto (Bld) [Volum e fraction]Ordered By: Deep Dela Cruz on 10-31-2024 Hematocrit (Bld) [Volume fraction] 34.0 % Low 37-47 [facility] Hemoglobin measurementOrdere d By: Deep Dela Cruz on 10-31-2024 Hemoglobin (Bld) [Mass/Vol] 11.1 g/dL Low 12.0-15.0 [facility] Immature granulocytes/100 WB C Auto (Bld)Ordered By: Deep Dela Cruz on 10-31-2024 Immature granulocytes/100 WBC (Bld) 2.400 % High 0.0-0.9 [facility] Comment on above: IG% - Immature Granu locytes (promyelocytes, myelocytes and metamyelocytes) > 1% indicates that a LEFT SHIFT is Present. MCV (mean corpuscular volume ) determinationOrdered By: Deep Dela Cruz on 10-31-2024 MCV (RBC) [Entitic vol] 91.9 fL 81-99 [facility] Mean corpuscular hemoglobin (MCH) determinationOrdered By: Deep Dela Cruz on 10-31-2024 MCH (RBC) [Entitic mass] 30.0 pg 27.0-32.0 [facility] Mean corpuscular hemoglobin concentration (MCHC) determinationOrdered By: Deep Dela Cruz on 10-31-2024 MCHC (RBC) [Mass/Vol] 32.6 g/dL 32-36 [facility] Mean platelet volume determi nationOrdered By: Deep Dela Cruz on 10-31-2024 Platelet mean volume (Bld) [Entitic vol] 10.0 fL 6.2-12.0 [facility] Monocyte percentageOrdered B y: Deep Dela Cruz on 10-31-2024 Monocytes/100 WBC (Bld) 5.6 % 0-10 [facility] Neutrophil percentageOrdered By: Deep Dela Cruz on 10-31-2024 Neutrophils/100 WBC (Bld) 84.0 % High 47-70 [facility] Nucleated red blood cell per centageOrdered By: Deep Dela Cruz on 10-31-2024 Nucleated RBC/100 WBC (Bld) [Ratio] 0 % 0-5 [facility] Platelet countOrdered By: Fired on 10-31-2024 Platelets (Bld) [#/Vol] 555 10*3/uL High 150-450 [facility] Potassium measurement (mass/ volume)Ordered By: Deep Dela Cruz on 10-31-2024 Potassium (Unsp spec) [Mass/Vol] 3.8 mmol/L 3.3-5.1 [facility] RBC Auto (Bld) [#/Vol]Ordere d By: Deep Dela Cruz on 10-31-2024 RBC (Bld) [#/Vol] 3.70 10*6/uL Low 4.2-5.4 [facility] Serum creatinine measurement (mass/volume)Ordered By: Deep Dela Cruz on 10-31-2024 Creatinine [Mass/Vol] 0.56 mg/dL Low 0.70-1.20 [facility] Serum glucose measurement (m ass/volume)Ordered By: Deep Dela Cruz on 10-31-2024 Glucose [Mass/Vol] 161 mg/dL High 70-99 [facility] Serum or plasma calcium jessi urement (mass/volume)Ordered By: Deep Dela Cruz on 10-31-2024 Calcium [Mass/Vol] 9.9 mg/dL 7.6-11.0 [facility] Serum or plasma urea nitroge n measurement (mass/volume)Ordered By: Deep Dela Cruz on 10-31-2024 Urea nitrogen [Mass/Vol] 34 mg/dL High 4-19 [facility] Sodium levelOrdered By: Deep Dela Cruz on 10-31-2024 Sodium [Moles/Vol] 135 mmol/L 133-145 [facility] White blood cell (WBC) count Ordered By: Deep Dela Cruz on 10-31-2024 WBC (Bld) [#/Vol] 14.4 10*3/uL High 4.4-11.0 [facility] Anion gap in Serum or Plasma Ordered By: Deep Dela Cruz on 10-26-2024 Anion gap [Moles/Vol] 11 mmol/L 5-15 [facility] BUN/creatinine ratioOrdered By: Deep Dela Cruz on 10-26-2024 Urea nitrogen/Creatinine [Mass ratio] 51.9 mg/mg High 03-19 [facility] Basic Metabolic Profile (BMP )on 10-26-2024 BUN/CRE 51.9 RATIO High 03-19 [facility] Comment on above: Order Comment: 303.2 Performed By: #### L 300.1260, L300.3900 #### [facility] Laboratory [facility] [place], [address] Calcium [Mass/Vol] 9.1 mg/dL Normal 7.6-11.0 [facility] Comment on above: Order Comment: 303.2 Performed By: #### L 300.4310, L300.3900 #### [facility] Laboratory [address] [place], [address] Chloride [Moles/Vol] 102 mmol/L Normal 98-108 [facility] Comment on above: Order Comment: 303.2 Performed By: #### L 300.4310, L300.3900 #### [facility] [address] [place], [address] CO2 [Moles/Vol] 21.2 mmol/L Normal 21.0-32.0 [facility] Comment on above: Order Comment: 303.2 Performed By: #### L 300.4310, L300.3900 #### [facility] Laboratory [address] [place], [address] Creatinine [Mass/Vol] 0.39 mg/dL Low 0.70-1.20 [facility] Comment on above: Order Comment: 303.2 Performed By: #### L 300.4310, L300.3900 #### [facility] [address] [place], [address] GAP 11 Normal 5-15 [facility] Comment on above: Order Comment: 303.2 Performed By: #### L 300.4310, L300.3900 #### [facility] [address] [place], [address] GFR/1.73 sq M.predicted among non-blacks MDRD (S/P/Bld) [Vol rate/Area] 99 mL/min/{1.73_m2} Normal >60 [facility] Comment on above: Order Comment: 303.2 Result Comment: mL/m in/1.73m2 CKD-EPI Creatinine Equation (2020) Performed By: #### L 300.4310, L300.3900 #### [facility] [address] [place], [address] Glucose [Mass/Vol] 114 mg/dL High 70-99 [facility] Comment on above: Order Comment: 303.2 Performed By: #### L 300.4310, L300.3900 #### [facility] [address] [place], [address] Potassium [Moles/Vol] 3.7 mmol/L Normal 3.3-5.1 [facility] Comment on above: Order Comment: 303.2 Performed By: #### L 300.4310, L300.3900 #### [facility] [address] [place], [address] Sodium [Moles/Vol] 135 mmol/L Normal 133-145 [facility] Comment on above: Order Comment: 303.2 Performed By: #### L 300.4310, L300.3900 #### [facility] [address] [place], [address] Urea nitrogen [Mass/Vol] 20 mg/dL High 4-19 [facility] Comment on above: Order Comment: 303.2 Performed By: #### L 300.4310, L300.3900 #### [facility] [address] [place], [address] CBC-Complete Blood Cnt No Di ffon 10-26-2024 Erythrocyte distribution width (RBC) [Ratio] 15.3 % High 11.6-14.6 [facility] Comment on above: Order Comment: 303.2 Performed By: #### L 300.4310, L300.3900 #### [facility] [address] [place], [address] Hematocrit (Bld) [Volume fraction] 33.1 % Low 37-47 [facility] Comment on above: Order Comment: 303.2 Performed By: #### L 300.4310, L300.3900 #### [facility] [address] [place], [address] Hemoglobin (Bld) [Mass/Vol] 10.5 g/dL Low 12.0-15.0 [facility] Comment on above: Order Comment: 303.2 Performed By: #### L 300.4310, L300.3900 #### [facility] [address] [place], [address] MCH (RBC) [Entitic mass] 30.1 pg Normal 27.0-32.0 [facility] Comment on above: Order Comment: 303.2 Performed By: #### L 300.4310, L300.3900 #### [facility] Laboratory [address] [place], [address] MCHC (RBC) [Mass/Vol] 31.7 g/dL Low 32-36 [facility] Comment on above: Order Comment: 303.2 Performed By: #### L 300.4310, L300.3900 #### [facility] [address] [place], [address] MCV (RBC) [Entitic vol] 94.8 fL Normal 81-99 [facility] Comment on above: Order Comment: 303.2 Performed By: #### L 300.4310, L300.3900 #### [facility] Laboratory [address] [place], [address] Platelet mean volume (Bld) [Entitic vol] 10.6 fL Normal 6.2-12.0 [facility] Comment on above: Order Comment: 303.2 Performed By: #### L 300.4310, L300.3900 #### [facility] Laboratory [address] [place], [address] Platelets (Bld) [#/Vol] 328 10*3/uL Normal 150-450 [facility] Comment on above: Order Comment: 303.2 Performed By: #### L 300.4310, L300.3900 #### [facility] [address] [place], [address] RBC (Bld) [#/Vol] 3.49 10*6/uL Low 4.2-5.4 [facility] Comment on above: Order Comment: 303.2 Performed By: #### L 300.4310, L300.3900 #### [facility] Laboratory [address] [place], [address] RDW SD 53.2 fl High 35.1-43.9 [facility] Comment on above: Order Comment: 303.2 Performed By: #### L 300.4310, L300.3900 #### [facility] Laboratory [address] [place], [address] WBC (Bld) [#/Vol] 9.9 10*3/uL Normal 4.4-11.0 [facility] Comment on above: Order Comment: 303.2 Performed By: #### L 300.4310, L300.3900 #### [facility] [address] [place], [address] Carbon dioxide, total [Moles /volume] in Central venous bloodOrdered By: Deep Dela Cruz on 10-26-2024 CO2 [Moles/Vol] 21.2 mmol/L 21.0-32.0 [facility] Chloride assayOrdered By: Fried on 10-26-2024 Chloride [Moles/Vol] 102 mmol/L 98-108 [facility] Erythrocyte distribution wid th ratioOrdered By: Deep Dela Cruz on 10-26-2024 Erythrocyte distribution width (RBC) [Ratio] 15.3 % High 11.6-14.6 [facility] Erythrocyte distribution wid th standard deviationOrdered By: Deep Dela Cruz on 10-26-2024 Erythrocyte distribution width (RBC) [Ratio] 53.2 fl High 35.1-43.9 [facility] Glomerular filtration rate ( GFR) estimation/1.73 sq m using serum, plasma, or whole bOrdered By: Deep Dela Cruz on 10-26-2024 GFR/1.73 sq M.predicted among non-blacks MDRD (S/P/Bld) [Vol rate/Area] 99 mL/min/{1.73_m2} >60 [facility] Comment on above: mL/min/1.73m2 CKD-EP I Creatinine Equation (2020) Hematocrit Auto (Bld) [Volum e fraction]Ordered By: Deep Dela Cruz on 10-26-2024 Hematocrit (Bld) [Volume fraction] 33.1 % Low 37-47 [facility] Hemoglobin measurementOrdere d By: Deep Dela Cruz on 10-26-2024 Hemoglobin (Bld) [Mass/Vol] 10.5 g/dL Low 12.0-15.0 [facility] MCV (mean corpuscular volume ) determinationOrdered By: Deep Dela Cruz on 10-26-2024 MCV (RBC) [Entitic vol] 94.8 fL 81-99 [facility] Mean corpuscular hemoglobin (MCH) determinationOrdered By: Deep Dela Cruz on 10-26-2024 MCH (RBC) [Entitic mass] 30.1 pg 27.0-32.0 [facility] Mean corpuscular hemoglobin concentration (MCHC) determinationOrdered By: Deep Dela Cruz on 10-26-2024 MCHC (RBC) [Mass/Vol] 31.7 g/dL Low 32-36 [facility] Mean platelet volume determi nationOrdered By: Deep Dela Cruz on 10-26-2024 Platelet mean volume (Bld) [Entitic vol] 10.6 fL 6.2-12.0 [facility] Platelet countOrdered By: Fried on 10-26-2024 Platelets (Bld) [#/Vol] 328 10*3/uL 150-450 [facility] Potassium measurement (mass/ volume)Ordered By: Deep Dela Cruz on 10-26-2024 Potassium (Unsp spec) [Mass/Vol] 3.7 mmol/L 3.3-5.1 [facility] RBC Auto (Bld) [#/Vol]Ordere d By: Deep Dela Cruz on 10-26-2024 RBC (Bld) [#/Vol] 3.49 10*6/uL Low 4.2-5.4 [facility] Serum creatinine measurement (mass/volume)Ordered By: Deep Dela Cruz on 10-26-2024 Creatinine [Mass/Vol] 0.39 mg/dL Low 0.70-1.20 [facility] Serum glucose measurement (m ass/volume)Ordered By: Deep Dela Cruz on 10-26-2024 Glucose [Mass/Vol] 114 mg/dL High 70-99 [facility] Serum or plasma calcium jessi urement (mass/volume)Ordered By: Deep Dela Cruz on 10-26-2024 Calcium [Mass/Vol] 9.1 mg/dL 7.6-11.0 [facility] Serum or plasma urea nitroge n measurement (mass/volume)Ordered By: Deep Dela Cruz on 10-26-2024 Urea nitrogen [Mass/Vol] 20 mg/dL High 4-19 [facility] Sodium levelOrdered By: Deep Dela Cruz on 10-26-2024 Sodium [Moles/Vol] 135 mmol/L 133-145 [facility] White blood cell (WBC) count Ordered By: Deep Dela Cruz on 10-26-2024 WBC (Bld) [#/Vol] 9.9 10*3/uL 4.4-11.0 [facility] Hemoglobin A1con 09-26-2024 HbA1c (Bld) [Mass fraction] 5.8 % High <=5.6 [facility] Comment on above: Order Comment: 303-2 Result Comment: Norm al < 5.7 % Prediabetic 5.7 - 6.4 % Diabetic >or= 6.5 % Please note range changes. Performed By: #### L 503.0106, L501.9985 #### [facility] Laboratory [address] [place] [address], [address] Hemoglobin A1c percentageOrd ered By: Deep Dela Cruz on 09-26-2024 HbA1c (Bld) [Mass fraction] 5.8 % High <5.7 [facility] Comment on above: Normal < 5.7 % Predi abetic 5.7 - 6.4 % Diabetic >or= 6.5 % Please note range changes. Anion gap in Serum or Plasma Ordered By: Deep Dela Cruz on 09-21-2024 Anion gap [Moles/Vol] 10 mmol/L 5-15 [facility] BUN/creatinine ratioOrdered By: Deep Dela Cruz on 09-21-2024 Urea nitrogen/Creatinine [Mass ratio] 20.3 mg/mg High 10-20 [facility] Bilirubin, totalOrdered By: Deep Dela Cruz on 09-21-2024 Bilirubin [Mass/Vol] 0.22 mg/dL 0.00-1.30 [facility] CBC-Complete Blood Cnt No Di ffon 09-21-2024 Erythrocyte distribution width (RBC) [Ratio] 18.6 % High 11.6-14.6 [facility] Comment on above: Order Comment: 303-2 Performed By: #### L 500.4050, L100.0500 #### [facility] Laboratory [address] [place], [address] Hematocrit (Bld) [Volume fraction] 39.8 % Normal 37-47 [facility] Comment on above: Order Comment: 303-2 Performed By: #### L 500.4050, L100.0500 #### [facility] [address] [place], [address] Hemoglobin (Bld) [Mass/Vol] 12.4 g/dL Normal 12.0-15.0 [facility] Comment on above: Order Comment: 303-2 Performed By: #### L 500.4050, L100.0500 #### [facility] [address] [place], [address] MCH (RBC) [Entitic mass] 28.6 pg Normal 27.0-32.0 [facility] Comment on above: Order Comment: 303-2 Performed By: #### L 500.4050, L100.0500 #### [facility] [address] [place], [address] MCHC (RBC) [Mass/Vol] 31.2 g/dL Low 32-36 [facility] Comment on above: Order Comment: 303-2 Performed By: #### L 500.4050, L100.0500 #### [facility] [address] [place], [address] MCV (RBC) [Entitic vol] 91.9 fL Normal 81-99 [facility] Comment on above: Order Comment: 303-2 Performed By: #### L 500.4050, L100.0500 #### [facility] [address] [place], [address] Platelet mean volume (Bld) [Entitic vol] 10.4 fL Normal 6.2-12.0 [facility] Comment on above: Order Comment: 303-2 Performed By: #### L 500.4050, L100.0500 #### [facility] [address] [place], [address] Platelets (Bld) [#/Vol] 320 10*3/uL Normal 150-450 [facility] Comment on above: Order Comment: 303-2 Performed By: #### L 500.4050, L100.0500 #### [facility] [address] [place], [address] RBC (Bld) [#/Vol] 4.33 10*6/uL Normal 4.2-5.4 [facility] Comment on above: Order Comment: 303-2 Performed By: #### L 500.4050, L100.0500 #### [facility] [address] [place], [address] RDW SD 62.9 fl High 35.1-43.9 [facility] Comment on above: Order Comment: 303-2 Performed By: #### L 500.4050, L100.0500 #### [facility] [address] [place], [address] WBC (Bld) [#/Vol] 6.5 10*3/uL Normal 4.4-11.0 [facility] Comment on above: Order Comment: 303-2 Performed By: #### L 500.4050, L100.0500 #### [facility] [address] [place], [address] Carbon dioxide, total [Moles /volume] in Central venous bloodOrdered By: Deep Dela Cruz on 09-21-2024 CO2 [Moles/Vol] 22.1 mmol/L 21.0-32.0 [facility] Chloride assayOrdered By: Fried on 09-21-2024 Chloride [Moles/Vol] 105 mmol/L 98-108 [facility] Comprehensive Metabolic Prof ilon 09-21-2024 Albumin [Mass/Vol] 2.6 g/dL Low 3.4-4.8 [facility] Comment on above: Order Comment: 303-2 Performed By: #### L 500.4050, L100.0500 #### [facility] [address] [place], [address] Albumin/Globulin [Mass ratio] 0.8 {ratio} Low 0.9-2.4 [facility] Comment on above: Order Comment: 303-2 Performed By: #### L 500.4050, L100.0500 #### [facility] [address] [place], [address] ALK PHOS 124 U/L High 35-104 [facility] Comment on above: Order Comment: 303-2 Performed By: #### L 500.4050, L100.0500 #### [facility] [address] [place], [address] ALT [Catalytic activity/Vol] 11 U/L Normal <=34 [facility] Comment on above: Order Comment: 303-2 Performed By: #### L 500.4050, L100.0500 #### [facility] [address] [place], [address] AST [Catalytic activity/Vol] 26 U/L Normal <=31 [facility] Comment on above: Order Comment: 303-2 Performed By: #### L 500.4050, L100.0500 #### [facility] [address] [place], [address] Bilirubin [Mass/Vol] 0.22 mg/dL Normal 0.00-1.30 [facility] Comment on above: Order Comment: 303-2 Performed By: #### L 500.4050, L100.0500 #### [facility] [address] [place], [address] BUN/CRE 20.3 RATIO High 10-20 [facility] Comment on above: Order Comment: 303-2 Performed By: #### L 500.4050, L100.0500 #### [facility] [address] [place], [address] Calcium [Mass/Vol] 8.9 mg/dL Normal 7.6-11.0 [facility] Comment on above: Order Comment: 303-2 Performed By: #### L 500.4050, L100.0500 #### [facility] [address] [place], [address] Chloride [Moles/Vol] 105 mmol/L Normal 98-108 [facility] Comment on above: Order Comment: 303-2 Performed By: #### L 500.4050, L100.0500 #### [facility] [address] [place], [address] CO2 [Moles/Vol] 22.1 mmol/L Normal 21.0-32.0 [facility] Comment on above: Order Comment: 303-2 Performed By: #### L 500.4050, L100.0500 #### [facility] [address] [place], [address] Creatinine [Mass/Vol] 0.66 mg/dL Low 0.70-1.20 [facility] Comment on above: Order Comment: 303-2 Performed By: #### L 500.4050, L100.0500 #### [facility] [address] [place], [address] GAP 10 Normal 5-15 [facility] Comment on above: Order Comment: 303-2 Performed By: #### L 500.4050, L100.0500 #### [facility] [address] [place], [address] GFR/1.73 sq M.predicted among non-blacks MDRD (S/P/Bld) [Vol rate/Area] 88 mL/min/{1.73_m2} Normal >60 [facility] Comment on above: Order Comment: 303-2 Result Comment: mL/m in/1.73m2 CKD-EPI Creatinine Equation (2020) Performed By: #### L 500.4050, L100.0500 #### [facility] [address] [place], [address] Globulin (S) [Mass/Vol] 3.5 g/dL Normal 2.2-4.2 [facility] Comment on above: Order Comment: 303-2 Performed By: #### L 500.4050, L100.0500 #### [facility] [address] [place], [address] Glucose [Mass/Vol] 81 mg/dL Normal 70-99 [facility] Comment on above: Order Comment: 303-2 Performed By: #### L 500.4050, L100.0500 #### [facility] [address] [place], [address] Potassium [Moles/Vol] 4.0 mmol/L Normal 3.3-5.1 [facility] Comment on above: Order Comment: 303-2 Performed By: #### L 500.4050, L100.0500 #### [facility] [address] [place], [address] Sodium [Moles/Vol] 137 mmol/L Normal 133-145 [facility] Comment on above: Order Comment: 303-2 Performed By: #### L 500.4050, L100.0500 #### [facility] [address] [place], [address] T PROT 6.1 g/dL Normal 5.9-8.4 [facility] Comment on above: Order Comment: 303-2 Performed By: #### L 500.4050, L100.0500 #### [facility] [address] [place], [address] Urea nitrogen [Mass/Vol] 13 mg/dL Normal 4-19 [facility] Comment on above: Order Comment: 303-2 Performed By: #### L 500.4050, L100.0500 #### [facility] [address] [place], [address] Erythrocyte distribution wid th ratioOrdered By: Deep Dela Cruz on 09-21-2024 Erythrocyte distribution width (RBC) [Ratio] 18.6 % High 11.6-14.6 [facility] Erythrocyte distribution wid th standard deviationOrdered By: Deep Dela Cruz on 09-21-2024 Erythrocyte distribution width (RBC) [Ratio] 62.9 fl High 35.1-43.9 [facility] Glomerular filtration rate ( GFR) estimation/1.73 sq m using serum, plasma, or whole bOrdered By: Deep Dela Cruz on 09-21-2024 GFR/1.73 sq M.predicted among non-blacks MDRD (S/P/Bld) [Vol rate/Area] 88 mL/min/{1.73_m2} >60 [facility] Comment on above: mL/min/1.73m2 CKD-EP I Creatinine Equation (2020) Hematocrit Auto (Bld) [Volum e fraction]Ordered By: Deep Dela Cruz on 09-21-2024 Hematocrit (Bld) [Volume fraction] 39.8 % 37-47 [facility] Hemoglobin measurementOrdere d By: Deep Dela Cruz on 09-21-2024 Hemoglobin (Bld) [Mass/Vol] 12.4 g/dL 12.0-15.0 [facility] Laboratory - Chemistry and C hemistry - challengeOrdered By: Deep Dela Cruz on 09-21-2024 AST [Catalytic activity/Vol] 26 U/L <32 [facility] MCV (mean corpuscular volume ) determinationOrdered By: Deep Dela Cruz on 09-21-2024 MCV (RBC) [Entitic vol] 91.9 fL 81-99 [facility] Mean corpuscular hemoglobin (MCH) determinationOrdered By: Deep Dela Cruz on 09-21-2024 MCH (RBC) [Entitic mass] 28.6 pg 27.0-32.0 [facility] Mean corpuscular hemoglobin concentration (MCHC) determinationOrdered By: Deep Dela Cruz on 09-21-2024 MCHC (RBC) [Mass/Vol] 31.2 g/dL Low 32-36 [facility] Mean platelet volume determi nationOrdered By: Deep Dela Cruz on 09-21-2024 Platelet mean volume (Bld) [Entitic vol] 10.4 fL 6.2-12.0 [facility] Platelet countOrdered By: Fried on 09-21-2024 Platelets (Bld) [#/Vol] 320 10*3/uL 150-450 [facility] Potassium measurement (mass/ volume)Ordered By: Deep Dela Cruz on 09-21-2024 Potassium (Unsp spec) [Mass/Vol] 4.0 mmol/L 3.3-5.1 [facility] RBC Auto (Bld) [#/Vol]Ordere d By: Deep Dela Cruz on 09-21-2024 RBC (Bld) [#/Vol] 4.33 10*6/uL 4.2-5.4 [facility] Serum creatinine measurement (mass/volume)Ordered By: Deep Dela Cruz on 09-21-2024 Creatinine [Mass/Vol] 0.66 mg/dL Low 0.70-1.20 [facility] Serum globulin measurementOr dered By: Deep Dela Cruz on 09-21-2024 Globulin (S) [Mass/Vol] 3.5 g/dL 2.2-4.2 [facility] Serum glucose measurement (m ass/volume)Ordered By: Deep Dela Cruz on 09-21-2024 Glucose [Mass/Vol] 81 mg/dL 70-99 [facility] Serum or plasma alanine wilson otransferase (ALT) measurementOrdered By: Deep Dela Cruz on 09-21-2024 ALT [Catalytic activity/Vol] 11 U/L <35 [facility] Serum or plasma albumin jessi urement (mass/volume)Ordered By: Deep Dela Cruz on 09-21-2024 Albumin [Mass/Vol] 2.6 g/dL Low 3.4-4.8 [facility] Serum or plasma albumin/glob ulin mass ratioOrdered By: Deep Dela Cruz on 09-21-2024 Albumin/Globulin [Mass ratio] 0.8 {ratio} Low 0.9-2.4 [facility] Serum or plasma alkaline jero sphatase measurementOrdered By: Deep Dela Cruz on 09-21-2024 ALP [Catalytic activity/Vol] 124 U/L High 35-104 [facility] Serum or plasma calcium jessi urement (mass/volume)Ordered By: Deep Dela Cruz on 09-21-2024 Calcium [Mass/Vol] 8.9 mg/dL 7.6-11.0 [facility] Serum or plasma urea nitroge n measurement (mass/volume)Ordered By: Deep Dela Cruz on 09-21-2024 Urea nitrogen [Mass/Vol] 13 mg/dL 4-19 [facility] Sodium levelOrdered By: Deep Dela Cruz on 09-21-2024 Sodium [Moles/Vol] 137 mmol/L 133-145 [facility] Total proteinOrdered By: Janet Dela Cruz on 09-21-2024 Protein [Mass/Vol] 6.1 g/dL 5.9-8.4 [facility] White blood cell (WBC) count Ordered By: Deep Dela Cruz on 09-21-2024 WBC (Bld) [#/Vol] 6.5 10*3/uL 4.4-11.0 [facility] Urine Cultureon 09-15-2024 [facility] STRAIGHT CATH Urine Culture Morganella morganii sp morgani [place] Count 80,000-100,000 Klebsiella pneumoniae sp pneum Klebsiella [...] TMP SMX Islt VERN <=20 S Normal [facility] Comment on above: Performed By: #### L 503.0106, L501.9985 #### [facility] [address] [place], [place], [id number] Urinalysis, Completeon 09-12 AMORPHOUS 1+ Normal [facility] Comment on above: Order Comment: 303-2 Performed By: #### L 503.0106, L501.9985 #### [facility] [address] [place], [address] RBC 0-5 SEEN Normal 0-5 [facility] Comment on above: Order Comment: 303-2 Performed By: #### L 503.0106, [id number] #### [facility] [address] [place], [place], [id number] TRIPLE PHOS 1+ /hpf Normal [facility] Comment on above: Order Comment: 303-2 Performed By: #### L 503.0106, [id number] #### [facility] [address] [place], [address] BACTERIA 3+ /hpf Normal None Seen [facility] Comment on above: Order Comment: 303-2 Performed By: #### L 503.0106, [id number] #### [facility] [address] [place], [address] WBC 10-25 SEEN Normal 0-5 [facility] Comment on above: Order Comment: 303-2 Performed By: #### L 503.0106, [id number] #### [facility] [address] [place], [address] EPI,SQUAMOUS 0 SEEN Normal 5-10 [facility] Comment on above: Order Comment: 303-2 Performed By: #### L 503.0106, [id number] #### [facility] [address] [place], [address] Mucus Ql (Urine sed) 0 SEEN Normal [facility] Comment on above: Order Comment: 303-2 Performed By: #### L 503.0106, [id number] #### [facility] [address] [place], [address] Amorphous sediment detection in urine sediment by light microscopyOrdered By: Deep Dela Cruz on 09-11-2024 Amorphous sediment LM Ql (Urine sed) 1+ [facility] Bilirubin Test strip Ql (U)O rdered By: Deep Dela Cruz on 09-11-2024 Bilirubin Ql (U) Negative Negative [facility] Ketones Test strip Ql (U)Ord ered By: Deep Dela Cruz on 09-11-2024 Ketones Ql (U) Negative Negative [facility] Microscopic analysis of urin e for red blood cells (RBC)Ordered By: Deep Dela Cruz on 09-11-2024 Microscopic analysis of urine for red blood cells (RBC) 0-5 SEEN /hpf 0-5 [facility] Mucus LM Ql (Urine sed)Order ed By: Deep Dela Cruz on 09-11-2024 Mucus Ql (Urine sed) 0 SEEN /hpf [facility] Nitrite Test strip Ql (U)Ord ered By: Deep Dela Cruz on 09-11-2024 Nitrite Ql (U) Positive High Negative [facility] Protein Test strip Ql (U)Ord ered By: Deep Dela Cruz on 09-11-2024 Protein Ql (U) 100 mg/dl High Negative [facility] Squamous epithelial cells de tection in urine sediment by light microscopyOrdered By: Deep Dela Cruz on 09-11-2024 Epithelial cells.squamous LM Ql (Urine sed) 0 SEEN /hpf 5-10 [facility] Triple phosphate crystals de tection in urine sediment by light microscopyOrdered By: Deep Dela Cruz on 09-11-2024 Triple phosphate crystals LM Ql (Urine sed) 1+ /hpf [facility] Urine clarityOrdered By: Janet Dela Cruz on 09-11-2024 Clarity (U) Turbid Clear [facility] Urine color determinationOrd ered By: Deep Dela Cruz on 09-11-2024 Color (U) Yellow Yellow [facility] Urine cultureOrdered By: Janet Dela Cruz on 09-11-2024 Bacteria identified Cx Nom (U) Morganella morganii sp morgani Abnormal [facility] Bacteria identified Cx Nom (U) Klebsiella pneumoniae sp pneum Abnormal [facility] Urine glucose detectionOrder ed By: Deep Dela Cruz on 09-11-2024 Glucose Ql (U) Normal mg/dl Normal [facility] Urine leukocyte esterase det ection by dipstickOrdered By: Deep Dela Cruz on 09-11-2024 Leukocyte esterase Test strip Ql (U) 500 /ul High Negative [facility] Urine pHOrdered By: Deep hayes on 09-11-2024 pH (U) 8.0 [pH] 5.0 - 8.0 [facility] Urine sediment bacteria coun t by microscopy (number/high power field)Ordered By: Deep Dela Cruz on 09-11-2024 Bacteria LM.HPF (Urine sed) [#/Area] 3 /[HPF] None Seen [facility] Urine specific gravity measu rementOrdered By: Deep Dela Cruz on 09-11-2024 Specific gravity (U) [Rel density] 1.010 1.002-1.030 [facility] Urine urobilinogen measureme ntOrdered By: Deep Dela Cruz on 09-11-2024 Urobilinogen Ql (U) Normal mg/dl Normal [facility] White blood cell countOrdere d By: Deep Dela Cruz on 09-11-2024 White blood cell count 10-25 SEEN /hpf 0-5 [facility] Anion gap in Serum or Plasma Ordered By: Deep Dela Cruz on 08-11-2024 Anion gap [Moles/Vol] 10 mmol/L 5-15 [facility] BUN/creatinine ratioOrdered By: Deep Dela Cruz on 08-11-2024 Urea nitrogen/Creatinine [Mass ratio] 29.2 mg/mg High 10-20 [facility] Basic Metabolic Profile (BMP )on 08-11-2024 BUN/CRE 29.2 RATIO High - [facility] Comment on above: Order Comment: 303.2 Performed By: #### L 300.4310, L300.3900 #### [facility] [address] [place], [address] Calcium [Mass/Vol] 8.6 mg/dL Normal 7.6-11.0 [facility] Comment on above: Order Comment: 303.2 Performed By: #### L 300.4310, L300.3900 #### [facility] [address] [place], [address] Chloride [Moles/Vol] 103 mmol/L Normal 98-108 [facility] Comment on above: Order Comment: 303.2 Performed By: #### L 300.4310, L300.3900 #### [facility] [address] [place], [address] CO2 [Moles/Vol] 24.2 mmol/L Normal 21.0-32.0 [facility] Comment on above: Order Comment: 303.2 Performed By: #### L 300.4310, L300.3900 #### [facility] [address] [place], [address] Creatinine [Mass/Vol] 0.47 mg/dL Low 0.70-1.20 [facility] Comment on above: Order Comment: 303.2 Performed By: #### L 300.4310, L300.3900 #### [facility] [address] [place], [address] GAP 10 Normal 5-15 [facility] Comment on above: Order Comment: 303.2 Performed By: #### L 300.4310, L300.3900 #### [facility] [address] [place], [address] GFR/1.73 sq M.predicted among non-blacks MDRD (S/P/Bld) [Vol rate/Area] 95 mL/min/{1.73_m2} Normal >60 [facility] Comment on above: Order Comment: 303.2 Result Comment: mL/m in/1.73m2 CKD-EPI Creatinine Equation (2020) Performed By: #### L 300.4310, L300.3900 #### [facility] [address] [place], [address] Glucose [Mass/Vol] 77 mg/dL Normal 70-99 [facility] Comment on above: Order Comment: 303.2 Performed By: #### L 300.4310, L300.3900 #### [facility] [address] [place], [address] Potassium [Moles/Vol] 3.7 mmol/L Normal 3.3-5.1 [facility] Comment on above: Order Comment: 303.2 Performed By: #### L 300.4310, L300.3900 #### [facility] [address] [place], [address] Sodium [Moles/Vol] 137 mmol/L Normal 133-145 [facility] Comment on above: Order Comment: 303.2 Performed By: #### L 300.4310, L300.3900 #### [facility] [address] [place], [address] Urea nitrogen [Mass/Vol] 14 mg/dL Normal 4-19 [facility] Comment on above: Order Comment: 303.2 Performed By: #### L 300.4310, L300.3900 #### [facility] [address] [place], [address] Carbon dioxide, total [Moles /volume] in Central venous bloodOrdered By: Deep Dela Cruz on 08-11-2024 CO2 [Moles/Vol] 24.2 mmol/L 21.0-32.0 [facility] Chloride assayOrdered By: Fried on 08-11-2024 Chloride [Moles/Vol] 103 mmol/L 98-108 [facility] GFR/1.73 sq M.predicted radha g non-blacks MDRD (S/P/Bld) [Vol rate/Area]Ordered By: Deep Dela Cruz on 08-11-2024 Estimated GFR (MDRD) Non-Af Amer 95 >60 [facility] Comment on above: mL/min/1.73m2 CKD-EP I Creatinine Equation (2020) Glomerular filtration rate ( GFR) estimation/1.73 sq m using serum, plasma, or whole bOrdered By: Deep Dela Cruz on 08-11-2024 GFR/1.73 sq M.predicted among non-blacks MDRD (S/P/Bld) [Vol rate/Area] 95 mL/min/{1.73_m2} >60 [facility] Comment on above: mL/min/1.73m2 CKD-EP I Creatinine Equation (2020) Hemoglobin A1con 08-11-2024 HbA1c (Bld) [Mass fraction] 6.6 % Normal <=5.6 [facility] Comment on above: Order Comment: 303.2 Performed By: #### L 300.4310, L300.3900 #### [facility] [address] [place], [place], [id number] Hemoglobin A1c percentageOrd ered By: Deep Dela Cruz on 08-11-2024 HbA1c (Bld) [Mass fraction] 6.6 % >5.7 [facility] Potassium (Unsp spec) [Mass/ Vol]Ordered By: Deep Dela Cruz on 08-11-2024 Potassium [Moles/Vol] 3.7 mmol/L 3.3-5.1 [facility] Potassium measurement (mass/ volume)Ordered By: Deep Dela Cruz on 08-11-2024 Potassium (Unsp spec) [Mass/Vol] 3.7 mmol/L 3.3-5.1 [facility] Serum creatinine measurement (mass/volume)Ordered By: Deep Dela Cruz on 08-11-2024 Creatinine [Mass/Vol] 0.47 mg/dL Low 0.70-1.20 [facility] Serum glucose measurement (m ass/volume)Ordered By: Deep Dela Cruz on 08-11-2024 Glucose [Mass/Vol] 77 mg/dL 70-99 [facility] Serum or plasma calcium jessi urement (mass/volume)Ordered By: Deep Dela Cruz on 08-11-2024 Calcium [Mass/Vol] 8.6 mg/dL 7.6-11.0 [facility] Serum or plasma urea nitroge n measurement (mass/volume)Ordered By: Deep Dela Cruz on 08-11-2024 Urea nitrogen [Mass/Vol] 14 mg/dL 4-19 [facility] Sodium levelOrdered By: Deep Dela Cruz on 08-11-2024 Sodium [Moles/Vol] 137 mmol/L 133-145 [facility] L503.7505on 08-08-2024 Natriuretic peptide B (Bld) [Mass/Vol] 1235 pg/mL Normal <=1800 [facility] Comment on above: Order Comment: 303.2 Result Comment: Hear t Failure Unlikely: < 300 pg/mL Heart Failure Likely < 50 Years: > 450 pg/mL 50-75 Years: > 900 pg/mL >75 Years: > 1800 pg/mL Performed By: #### L 300.8430, L300.3900 #### [facility] [address] [place], [address] Laboratory - Chemistry and C hemistry - challengeOrdered By: Deep Dela Cruz on 03-11-2025 Natriuretic peptide B (Bld) [Mass/Vol] 1235 pg/mL <1800 [facility] Comment on above: Heart Failure Unlike ly: < 300 pg/mLHeart Failure Likely< 50 Years: > 450 pg/mL50-75 Years: > 900 pg/mL>75 Years: > 1800 pg/mL CNOVon 08-03-2024 CNOV Normal [facility] CT HEAD WO IV CONTRASTon CT HEAD WO IV CONTRAST Patient Name: MIRIAM DE LA GARZA : 1940 [facility]#: [id number] Exam Date/Time: 08/02/2024 12:03 Procedure: CT HEAD [...] intracranial hemorrhage. Pt poor historian Normal [facility] CT Head WO contraston 2024 1. 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 2. No definite evidence of acute infarction, mass lesion, nor hemorrhage with moderate intracranial vascular calcification. Report Dictated on Electronically Signed By: Abhinav Loyola MD Electronically Signed Date/Time: 08/02/2024 6:14 PM EST [facility] Patient Name: MIRIAM SAEED : 1940 [...] unremarkable with cerumen right external auditory canal. [facility] Abhinav Loyola MD - 08/02/2024 Patient [...] Electronically Signed Date/Time: 08/02/2024 6:14 PM EST [facility] Radiology Study observation (narrative) [facility] CT Head WO contrastOrdered B y: Abhinav Loyola on 08-02-2024 [facility] Work Phone: CNPNon 08-01-2024 CNPN Normal [facility] Comprehensive Metabolic Prof ilon 07-27-2024 Chloride [Moles/Vol] 102 mmol/L Normal 98-107 [facility] Comment on above: Performed By: #### L 500.2500, L100.0100 #### [facility] [address] [place], [address] CO2 [Moles/Vol] 20.6 mmol/L Low 21.0-32.0 [facility] Comment on above: Performed By: #### L 500.2500, L100.0100 #### [facility] [address] [place], [address] GAP 13 Normal 5-15 [facility] Comment on above: Performed By: #### L 500.2500, L100.0100 #### [facility] [address] [place], [address] Potassium [Moles/Vol] 4.5 mmol/L Normal 3.5-5.1 [facility] Comment on above: Performed By: #### L 500.2500, L100.0100 #### [facility] [address] [place], [address] Calcium [Mass/Vol] 8.5 mg/dL Normal 7.6-11.0 [facility] Comment on above: Performed By: #### L 500.2500, L100.0100 #### [facility] [address] [place], [address] EST GFR - AA TNP Normal >60 [facility] Comment on above: Performed By: #### L 500.2500, L100.0100 #### [facility] [address] [place], [address] Sodium [Moles/Vol] 136 mmol/L Normal 136-145 [facility] Comment on above: Performed By: #### L 500.2500, L100.0100 #### [facility] [address] [place], [address] BUN/creatinine ratioOrdered By: Deep Dela Cruz on 07-26-2024 Urea nitrogen/Creatinine [Mass ratio] 33.7 mg/mg High 10-20 [facility] Comment on above: Previous reported re sult: 32.5 RATIOEdited by: ERWIN on 07/27/24:1224 AMENDED REPORT 07/27/24 1224 BUN/CRE previously reported as: 32.5 H RATIO Bilirubin, totalOrdered By: Deep Dela Cruz on 07-26-2024 Bilirubin [Mass/Vol] mg/dL 0.00-1.30 [facility] Comment on above: Previous reported re sult: 0.18 mg/dLEdited by: ERWIN on 07/27/24:1224 AMENDED REPORT 07/27/24 1224 T BILI previously reported as: 0.18 mg/dL CBC-Complete Blood Cnt No Di ffon 07-26-2024 Erythrocyte distribution width (RBC) [Ratio] 16.2 % High 11.6-14.6 [facility] Comment on above: Performed By: #### L 500.2500, L100.0100 #### [facility] [address] [place], [address] Hematocrit (Bld) [Volume fraction] 36.6 % Low 37-47 [facility] Comment on above: Performed By: #### L 500.2500, L100.0100 #### [facility] [address] [place], [address] Hemoglobin (Bld) [Mass/Vol] 11.2 g/dL Low 12.0-15.0 [facility] Comment on above: Performed By: #### L 500.2500, L100.0100 #### [facility] [address] [place], [address] MCH (RBC) [Entitic mass] 27.7 pg Normal 27.0-32.0 [facility] Comment on above: Performed By: #### L 500.2500, L100.0100 #### [facility] [address] [place], [address] MCHC (RBC) [Mass/Vol] 30.6 g/dL Low 32-36 [facility] Comment on above: Performed By: #### L 500.2500, L100.0100 #### [facility] [address] [place], [address] MCV (RBC) [Entitic vol] 90.4 fL Normal 81-99 [facility] Comment on above: Performed By: #### L 500.2500, L100.0100 #### [facility] [address] [place], [address] Platelet mean volume (Bld) [Entitic vol] 11.1 fL Normal 6.2-12.0 [facility] Comment on above: Performed By: #### L 500.2500, L100.0100 #### [facility] [address] [place], [address] Platelets (Bld) [#/Vol] 205 10*3/uL Normal 150-450 [facility] Comment on above: Performed By: #### L 500.2500, L100.0100 #### [facility] [address] [place], [address] RBC (Bld) [#/Vol] 4.05 10*6/uL Low 4.2-5.4 [facility] Comment on above: Performed By: #### L 500.2500, L100.0100 #### [facility] [address] [place], [address] RDW SD 54.1 fl High 35.1-43.9 [facility] Comment on above: Performed By: #### L 500.2500, L100.0100 #### [facility] [address] [place], [address] WBC (Bld) [#/Vol] 5.4 10*3/uL Normal 4.4-11.0 [facility] Comment on above: Performed By: #### L 500.2500, L100.0100 #### [facility] [address] [place], [address] Creatinine [Moles/Vol]Ordere d By: Deep Dela Cruz on 07-26-2024 Creatinine [Mass/Vol] 0.5 mg/dL Low 0.6-1.0 [facility] Estimated glomerular filtrat ion rate (GFR) AmericanOrdered By: Deep Dela Cruz on 07-26-2024 Estimated GFR (MDRD) Amer TNP [facility] Comment on above: Test not performed GFR/1.73 sq M.predicted radha g non-blacks MDRD (S/P/Bld) [Vol rate/Area]Ordered By: Deep Dela Cruz on 07-26-2024 Estimated GFR (MDRD) Non-Af Amer 95 >60 [facility] Comment on above: mL/min/1.73m2 CKD-EP I Creatinine Equation (2020) Glomerular filtration rate ( GFR) estimation/1.73 sq m using serum, plasma, or whole bOrdered By: Deep Dela Cruz on 07-26-2024 GFR/1.73 sq M.predicted among non-blacks MDRD (S/P/Bld) [Vol rate/Area] 95 mL/min/{1.73_m2} >60 [facility] Comment on above: mL/min/1.73m2 CKD-EP I Creatinine Equation (2020) Hemoglobin A1con 07-26-2024 HbA1c (Bld) [Mass fraction] 6.4 % Normal <=5.6 [facility] Comment on above: Order Comment: 303.2 Performed By: #### L 500.2500, L100.0100 #### [facility] [address] [place], [place], [address] Laboratory - Chemistry and C hemistry - challengeOrdered By: Deep Dela Cruz on 07-26-2024 AST [Catalytic activity/Vol] 29 U/L <32 [facility] Potassium measurementOrdered By: Deep Dela Cruz on 07-26-2024 Potassium [Moles/Vol] 4.5 mmol/L 3.5-5.1 [facility] Serum anion gap measurementO rdered By: Deep Dela Cruz on 07-26-2024 Anion gap [Moles/Vol] 13 mmol/L 5-15 [facility] Serum globulin measurementOr dered By: Deep Dela Cruz on 07-26-2024 Globulin (S) [Mass/Vol] 3.5 g/dL 2.2-4.2 [facility] Comment on above: Previous reported re sult: 3.2 g/dLEdited by: ERWIN on 07/27/24:1224 AMENDED REPORT 07/27/24 1224 GLOB previously reported as: 3.2 g/dL Serum glucose measurement (m ass/volume)Ordered By: Deep Dela Cruz on 07-26-2024 Glucose [Mass/Vol] 68 mg/dL Low 70-99 [facility] Comment on above: Previous reported re sult: 74 mg/dLEdited by: ERWIN on 07/27/24:1224 AMENDED REPORT 07/27/24 1224 GLU previously reported as: 74 mg/dL Serum or plasma alanine wilson otransferase (ALT) measurementOrdered By: Deep Dela Cruz on 07-26-2024 ALT [Catalytic activity/Vol] 9 U/L <35 [facility] Comment on above: Previous reported re sult: 10 U/LEdited by: AUTOINS on 07/27/24:1224 AMENDED REPORT 07/27/24 1224 ALT previously reported as: 10 U/L Serum or plasma albumin jessi urement (mass/volume)Ordered By: Deep Dela Cruz on 07-26-2024 Albumin [Mass/Vol] 2.3 g/dL Low 3.4-4.8 [facility] Serum or plasma albumin/glob ulin mass ratioOrdered By: Deep Dela Cruz on 07-26-2024 Albumin/Globulin [Mass ratio] 0.7 {ratio} Low 0.9-2.4 [facility] Serum or plasma alkaline jero sphatase measurementOrdered By: Deep Dela Cruz on 07-26-2024 ALP [Catalytic activity/Vol] 156 U/L High 35-104 [facility] Comment on above: Previous reported re sult: 153 U/LEdited by: AUTOINS on 07/27/24:1224 AMENDED REPORT 07/27/24 1224 ALK P previously reported as: 153 H U/L Serum or plasma calcium jessi urement (mass/volume)Ordered By: Deep Dela Cruz on 07-26-2024 Calcium [Mass/Vol] 8.5 mg/dL 7.6-11.0 [facility] Serum or plasma carbon dioxi de measurement (moles/volume)Ordered By: Deep Dela Cruz on 07-26-2024 CO2 [Moles/Vol] 20.6 mmol/L Low 21.0-32.0 [facility] Serum or plasma chloride michelle surement (moles/volume)Ordered By: Deep Dela Cruz on 07-26-2024 Chloride [Moles/Vol] 102 mmol/L 98-107 [facility] Serum or plasma creatinine m easurement (moles/volume)Ordered By: Deep Dela Cruz on 07-26-2024 Creatinine [Moles/Vol] 0.5 mg/dL Low 0.6-1.0 [facility] Serum or plasma urea nitroge n measurement (mass/volume)Ordered By: Deep Dela Cruz on 07-26-2024 Urea nitrogen [Mass/Vol] 17 mg/dL 4-19 [facility] Comment on above: Previous reported re sult: 16 mg/dLEdited by: AUTOINS on 07/27/24:1224 AMENDED REPORT 07/27/24 1224 BUN previously reported as: 16 mg/dL Sodium levelOrdered By: Deep Dela Cruz on 07-26-2024 Sodium [Moles/Vol] 136 mmol/L 136-145 [facility] Total proteinOrdered By: Janet Dela Cruz on 07-26-2024 Protein [Mass/Vol] 5.8 g/dL Low 5.9-8.4 [facility] Comment on above: Previous reported re sult: 5.5 g/dLEdited by: AUTOINS on 07/27/24:1224 AMENDED REPORT 07/27/24 1224 T PROT previously reported as: 5.5 L g/dL Erythrocyte distribution wid th (RBC) [Ratio]Ordered By: Deep Dela Cruz on 07-25-2024 Erythrocyte distribution width (RBC) [Entitic vol] 54.1 fL High 35.1-43.9 [facility] Erythrocyte distribution wid th ratioOrdered By: Deep Dela Cruz on 07-25-2024 Erythrocyte distribution width (RBC) [Ratio] 16.2 % High 11.6-14.6 [facility] Erythrocyte distribution wid th standard deviationOrdered By: Deep Dela Cruz on 07-25-2024 Erythrocyte distribution width (RBC) [Ratio] 54.1 fl High 35.1-43.9 [facility] Hematocrit Auto (Bld) [Volum e fraction]Ordered By: Deep Dela Cruz on 07-25-2024 Hematocrit (Bld) [Volume fraction] 36.6 % Low 37-47 [facility] Hemoglobin A1c percentageOrd ered By: Deep Dela Cruz on 07-25-2024 HbA1c (Bld) [Mass fraction] 6.4 % >5.7 [facility] Hemoglobin measurementOrdere d By: Deep Dela Cruz on 07-25-2024 Hemoglobin (Bld) [Mass/Vol] 11.2 g/dL Low 12.0-15.0 [facility] MCV (mean corpuscular volume ) determinationOrdered By: Deep Dela Cruz on 02-25-2025 MCV (RBC) [Entitic vol] 90.4 fL 81-99 [facility] Mean corpuscular hemoglobin (MCH) determinationOrdered By: Deep Dela Cruz on 07-25-2024 MCH (RBC) [Entitic mass] 27.7 pg 27.0-32.0 [facility] Mean corpuscular hemoglobin concentration (MCHC) determinationOrdered By: Deep Dela Cruz on 07-25-2024 MCHC (RBC) [Mass/Vol] 30.6 g/dL Low 32-36 [facility] Mean platelet volume determi nationOrdered By: Deep Dela Cruz on 07-25-2024 Platelet mean volume (Bld) [Entitic vol] 11.1 fL 6.2-12.0 [facility] Platelet countOrdered By: Fried on 07-25-2024 Platelets (Bld) [#/Vol] 205 10*3/uL 150-450 [facility] RBC Auto (Bld) [#/Vol]Ordere d By: Deep Dela Cruz on 07-25-2024 RBC (Bld) [#/Vol] 4.05 10*6/uL Low 4.2-5.4 [facility] White blood cell (WBC) count Ordered By: Deep Dela Cruz on 07-25-2024 WBC (Bld) [#/Vol] 5.4 10*3/uL 4.4-11.0 [facility] Basic Metabolic Profile (BMP )on 07-10-2024 BUN/CRE 43.1 RATIO High 10-20 [facility] Comment on above: Order Comment: 303.2 Performed By: #### L 500.2500, L100.0100 #### [facility] [address] [place], [address] CA,Total 8.6 mg/dL Normal 8.5-10.1 [facility] Comment on above: Order Comment: 303.2 Performed By: #### L 500.2500, L100.0100 #### [facility] [address] [place], [address] Chloride [Moles/Vol] 103 mmol/L Normal 98-107 [facility] Comment on above: Order Comment: 303.2 Performed By: #### L 500.2500, L100.0100 #### [facility] [address] [place], [address] CO2 [Moles/Vol] 28.0 mmol/L Normal 21.0-32.0 [facility] Comment on above: Order Comment: 303.2 Performed By: #### L 500.2500, L100.0100 #### [facility] [address] [place], [address] Creatinine [Mass/Vol] 0.44 mg/dL Low 0.55-1.02 [facility] Comment on above: Order Comment: 303.2 Result Comment: The validity of the calculated GFR GFRAA in patients over 70 years has not been determined. Clinical correlation is essential. Performed By: #### L 500.2500, L100.0100 #### [facility] [address] [place], [address] EST GFR - AA 175 mL/min Normal >60 [facility] Comment on above: Order Comment: 303.2 Result Comment: Afri can [place] GFR Calc Performed By: #### L 500.2500, L100.0100 #### [facility] [address] [place], [address] GAP 6 Normal 5-15 [facility] Comment on above: Order Comment: 303.2 Performed By: #### L 500.2500, L100.0100 #### [facility] [address] [place], [address] GFR/1.73 sq M.predicted among non-blacks MDRD (S/P/Bld) [Vol rate/Area] 145 mL/min/{1.73_m2} Normal >60 [facility] Comment on above: Order Comment: 303.2 Result Comment: Non- GFR Calc Performed By: #### L 500.2500, L100.0100 #### [facility] [address] [place], [address] Glucose [Mass/Vol] 103 mg/dL Normal 74-106 [facility] Comment on above: Order Comment: 303.2 Result Comment: Fast ing Glucose result from 100 to 125 mg/dL suggests IMPAIRED HOMEOSTASIS per A.D.A. criteria. Performed By: #### L 500.2500, L100.0100 #### [facility] [address] [place], [address] Potassium [Moles/Vol] 3.7 mmol/L Normal 3.5-5.1 [facility] Comment on above: Order Comment: 303.2 Performed By: #### L 500.2500, L100.0100 #### [facility] [address] [place], [address] Sodium [Moles/Vol] 137 mmol/L Normal 136-145 [facility] Comment on above: Order Comment: 303.2 Performed By: #### L 500.2500, L100.0100 #### [facility] [address] [place], [address] Urea nitrogen [Mass/Vol] 19 mg/dL High 7-18 [facility] Comment on above: Order Comment: 303.2 Performed By: #### L 500.2500, L100.0100 #### [facility] [address] [place], [address] Blood urea nitrogen (BUN)/cr eatinine ratioOrdered By: Deep Dela Cruz on 07-10-2024 Urea nitrogen/Creatinine [Mass ratio] 43.1 mg/mg High 10-20 [facility] CBC-Complete Blood Cnt No Di ffon 07-10-2024 Erythrocyte distribution width (RBC) [Ratio] 14.9 % High 11.6-14.6 [facility] Comment on above: Order Comment: 303.2 Performed By: #### L 500.2500, L100.0100 #### [facility] [address] [place], [address] Hematocrit (Bld) [Volume fraction] 31.3 % Low 37-47 [facility] Comment on above: Order Comment: 303.2 Performed By: #### L 500.2500, L100.0100 #### [facility] [address] [place], [address] Hemoglobin (Bld) [Mass/Vol] 10.0 g/dL Low 12.0-15.0 [facility] Comment on above: Order Comment: 303.2 Performed By: #### L 500.2500, L100.0100 #### [facility] [address] [place], [address] MCH (RBC) [Entitic mass] 28.7 pg Normal 27.0-32.0 [facility] Comment on above: Order Comment: 303.2 Performed By: #### L 500.2500, L100.0100 #### [facility] [address] [place], [address] MCHC (RBC) [Mass/Vol] 31.9 g/dL Low 32-36 [facility] Comment on above: Order Comment: 303.2 Performed By: #### L 500.2500, L100.0100 #### [facility] [address] [place], [address] MCV (RBC) [Entitic vol] 89.9 fL Normal 81-99 [facility] Comment on above: Order Comment: 303.2 Performed By: #### L 500.2500, L100.0100 #### [facility] [address] [place], [address] Platelet mean volume (Bld) [Entitic vol] 10.7 fL Normal 6.2-12.0 [facility] Comment on above: Order Comment: 303.2 Performed By: #### L 500.2500, L100.0100 #### [facility] [address] [place], [address] Platelets (Bld) [#/Vol] 397 10*3/uL Normal 150-450 [facility] Comment on above: Order Comment: 303.2 Performed By: #### L 500.2500, L100.0100 #### [facility] [address] [place], [address] RBC (Bld) [#/Vol] 3.48 10*6/uL Low 4.2-5.4 [facility] Comment on above: Order Comment: 303.2 Performed By: #### L 500.2500, L100.0100 #### [facility] [address] [place], [address] RDW SD 49.5 fl High 35.1-43.9 [facility] Comment on above: Order Comment: 303.2 Performed By: #### L 500.2500, L100.0100 #### [facility] [address] [place], [address] WBC (Bld) [#/Vol] 18.3 10*3/uL High 4.4-11.0 [facility] Comment on above: Order Comment: 303.2 Performed By: #### L 500.2500, L100.0100 #### [facility] [address] [place], [address] Carbon dioxide measurementOr dered By: Deep Dela Cruz on 07-10-2024 CO2 [Moles/Vol] 28.0 mmol/L 21.0-32.0 [facility] Chloride measurementOrdered By: Deep Dela Cruz on 07-10-2024 Chloride [Moles/Vol] 103 mmol/L 98-107 [facility] Erythrocyte distribution wid th (RBC) [Ratio]Ordered By: Deep Dela Cruz on 07-10-2024 Erythrocyte distribution width (RBC) [Entitic vol] 49.5 fL High 35.1-43.9 [facility] Erythrocyte distribution wid th ratioOrdered By: Deep Dela Cruz on 07-10-2024 Erythrocyte distribution width (RBC) [Ratio] 14.9 % High 11.6-14.6 [facility] Erythrocyte distribution wid th standard deviationOrdered By: Deep Dela Cruz on 07-10-2024 Erythrocyte distribution width (RBC) [Ratio] 49.5 fl High 35.1-43.9 [facility] Estimated glomerular filtrat ion rate (GFR) AmericanOrdered By: Deep Dela Cruz on 07-10-2024 Estimated GFR (MDRD) Amer 175 mL/min >60 [facility] Comment on above: GFR Calc Glomerular filtration rate ( GFR) estimationOrdered By: Deep Dela Cruz on 07-10-2024 Estimated GFR (MDRD) Non-Af Amer 145 mL/min >60 [facility] Comment on above: Non- GFR Calc GFR/1.73 sq M.predicted among non-blacks MDRD (S/P/Bld) [Vol rate/Area] 145 mL/min/{1.73_m2} >60 [facility] Comment on above: Non- GFR Calc Glucose measurementOrdered B y: Deep Dela Cruz on 07-10-2024 Glucose [Mass/Vol] 103 mg/dL 74-106 [facility] Comment on above: Fasting Glucose resu lt from 100 to 125 mg/dL suggests IMPAIRED HOMEOSTASIS per A.D.A. criteria. Hematocrit Auto (Bld) [Volum e fraction]Ordered By: Deep Dela Cruz on 07-10-2024 Hematocrit (Bld) [Volume fraction] 31.3 % Low 37-47 [facility] Hemoglobin measurementOrdere d By: Deep Dela Cruz on 07-10-2024 Hemoglobin (Bld) [Mass/Vol] 10.0 g/dL Low 12.0-15.0 [facility] MCV (mean corpuscular volume ) determinationOrdered By: Deep Dela Cruz on 07-10-2024 MCV (RBC) [Entitic vol] 89.9 fL 81-99 [facility] Mean corpuscular hemoglobin (MCH) determinationOrdered By: Deep Dela Cruz on 07-10-2024 MCH (RBC) [Entitic mass] 28.7 pg 27.0-32.0 [facility] Mean corpuscular hemoglobin concentration (MCHC) determinationOrdered By: Deep Dela Cruz on 07-10-2024 MCHC (RBC) [Mass/Vol] 31.9 g/dL Low 32-36 [facility] Mean platelet volume determi nationOrdered By: Deep Dela Cruz on 07-10-2024 Platelet mean volume (Bld) [Entitic vol] 10.7 fL 6.2-12.0 [facility] Platelet countOrdered By: Fried on 07-10-2024 Platelets (Bld) [#/Vol] 397 10*3/uL 150-450 [facility] Potassium measurementOrdered By: Deep Dela Cruz on 07-10-2024 Potassium [Moles/Vol] 3.7 mmol/L 3.5-5.1 [facility] RBC Auto (Bld) [#/Vol]Ordere d By: Deep Dela Cruz on 07-10-2024 RBC (Bld) [#/Vol] 3.48 10*6/uL Low 4.2-5.4 [facility] Serum anion gap measurementO rdered By: Deep Dela Cruz on 07-10-2024 Anion gap [Moles/Vol] 6 mmol/L 5-15 [facility] Serum or plasma calcium jessi urement (mass/volume)Ordered By: Deep Dela Cruz on 07-10-2024 Calcium [Mass/Vol] 8.6 mg/dL 8.5-10.1 [facility] Serum or plasma creatinine m easurement (mass/volume)Ordered By: Deep Dela Cruz on 07-10-2024 Creatinine [Mass/Vol] 0.44 mg/dL Low 0.55-1.02 [facility] Comment on above: The validity of the calculated GFR & GFRAA in patients over 70 years has not been determined. Clinical correlation is essential. Serum or plasma urea nitroge n measurement (mass/volume)Ordered By: Deep Dela Cruz on 07-10-2024 Urea nitrogen [Mass/Vol] 19 mg/dL High 7-18 [facility] Sodium levelOrdered By: Deep Dela Cruz on 07-10-2024 Sodium [Moles/Vol] 137 mmol/L 136-145 [facility] White blood cell (WBC) count Ordered By: Deep Dela Cruz on 07-10-2024 WBC (Bld) [#/Vol] 18.3 10*3/uL High 4.4-11.0 [facility] Absolute lymphocyte countOrd ered By: Deep Dela Cruz on 06-20-2024 Lymphocytes Auto (Unsp spec) [#/Vol] 1.17 10*3/uL 0.83-4.51 [facility] Absolute neutrophil countOrd ered By: Deep Dela Cruz on 06-20-2024 Neutrophils (Bld) [#/Vol] 5.5 10*3/uL 2.0-7.7 [facility] Albumin to globulin ratioOrd ered By: Deep Dela Cruz on 06-20-2024 Albumin/Globulin [Mass ratio] 0.5 {ratio} Low 0.9-2.4 [facility] Automated lymphocyte count a s percentage of total leukocytesOrdered By: Deep Dela Cruz on 06-20-2024 Lymphocytes/100 WBC Auto (Unsp spec) 14.7 % Low 19-41 [facility] Basophil percentageOrdered B y: Deep Dela Cruz on 06-20-2024 Basophils/100 WBC (Bld) 1.1 % High 0-1 [facility] Bilirubin, totalOrdered By: Deep Dela Cruz on 06-20-2024 Bilirubin [Mass/Vol] 0.40 mg/dL 0.20-1.00 [facility] Comment on above: For patients on eltr ombopag therapy, use of Dimension Devol TBIL is not recommended. Blood urea nitrogen (BUN)/cr eatinine ratioOrdered By: Deep Dela Cruz on 06-20-2024 Urea nitrogen/Creatinine [Mass ratio] 30.9 mg/mg High 10-20 [facility] CBC W/Diff, Automatedon 06-01 Absolute Lymph 1.17 X10 3/uL Normal 0.83-4.51 [facility] Comment on above: Order Comment: 303.2 Performed By: #### L 500.2500, L100.0100 #### [facility] [address] [place], [address] Absolute Neut 5.5 X10 3/uL Normal 2.0-7.7 [facility] Comment on above: Order Comment: 303.2 Performed By: #### L 500.2500, L100.0100 #### [facility] [address] [place], [address] Basophils/100 WBC (Bld) 1.1 % High 0-1 [facility] Comment on above: Order Comment: 303.2 Performed By: #### L 500.2500, L100.0100 #### [facility] [address] [place], [address] Eosinophils/100 WBC (Bld) 3.0 % Normal 0-5 [facility] Comment on above: Order Comment: 303.2 Performed By: #### L 500.2500, L100.0100 #### [facility] [address] [place], [address] Erythrocyte distribution width (RBC) [Ratio] 15.1 % High 11.6-14.6 [facility] Comment on above: Order Comment: 303.2 Performed By: #### L 500.2500, L100.0100 #### [facility] [address] [place], [address] Hematocrit (Bld) [Volume fraction] 33.9 % Low 37-47 [facility] Comment on above: Order Comment: 303.2 Performed By: #### L 500.2500, L100.0100 #### [facility] [address] [place], [address] Hemoglobin (Bld) [Mass/Vol] 10.5 g/dL Low 12.0-15.0 [facility] Comment on above: Order Comment: 303.2 Performed By: #### L 500.2500, L100.0100 #### [facility] [address] [place], [address] IG% 0.500 Normal 0.0-0.9 [facility] Comment on above: Order Comment: 303.2 Result Comment: IG% - Immature Granulocytes (promyelocytes, myelocytes and metamyelocytes) > 1% indicates that a LEFT SHIFT is Present. Performed By: #### L 500.2500, L100.0100 #### [facility] [address] [place], [address] Lymphocytes/100 WBC (Bld) 14.7 % Low 19-41 [facility] Comment on above: Order Comment: 303.2 Performed By: #### L 500.2500, L100.0100 #### [facility] [address] [place], [address] MCH (RBC) [Entitic mass] 28.8 pg Normal 27.0-32.0 [facility] Comment on above: Order Comment: 303.2 Performed By: #### L 500.2500, L100.0100 #### [facility] [address] [place], [address] MCHC (RBC) [Mass/Vol] 31.0 g/dL Low 32-36 [facility] Comment on above: Order Comment: 303.2 Performed By: #### L 500.2500, L100.0100 #### [facility] [address] [place], [address] MCV (RBC) [Entitic vol] 93.1 fL Normal 81-99 [facility] Comment on above: Order Comment: 303.2 Performed By: #### L 500.2500, L100.0100 #### [facility] [address] [place], [address] Monocytes/100 WBC (Bld) 11.2 % High 0-10 [facility] Comment on above: Order Comment: 303.2 Performed By: #### L 500.2500, L100.0100 #### [facility] [address] [place], [address] Neutrophils/100 WBC (Bld) 69.5 % Normal 47-70 [facility] Comment on above: Order Comment: 303.2 Performed By: #### L 500.2500, L100.0100 #### [facility] [address] [place], [address] Nucleated RBC (Bld) [#/Vol] 0 10*3/uL Normal 0-5 [facility] Comment on above: Order Comment: 303.2 Performed By: #### L 500.2500, L100.0100 #### [facility] [address] [place], [address] Platelet mean volume (Bld) [Entitic vol] 10.3 fL Normal 6.2-12.0 [facility] Comment on above: Order Comment: 303.2 Performed By: #### L 500.2500, L100.0100 #### [facility] [address] [place], [address] Platelets (Bld) [#/Vol] 299 10*3/uL Normal 150-450 [facility] Comment on above: Order Comment: 303.2 Performed By: #### L 500.2500, L100.0100 #### [facility] [address] [place], [address] RBC (Bld) [#/Vol] 3.64 10*6/uL Low 4.2-5.4 [facility] Comment on above: Order Comment: 303.2 Performed By: #### L 500.2500, L100.0100 #### [facility] [address] [place], [address] RDW SD 51.5 fl High 35.1-43.9 [facility] Comment on above: Order Comment: 303.2 Performed By: #### L 500.2500, L100.0100 #### [facility] [address] [place], [address] WBC (Bld) [#/Vol] 8.0 10*3/uL Normal 4.4-11.0 [facility] Comment on above: Order Comment: 303.2 Performed By: #### L 500.2500, L100.0100 #### [facility] [address] [place], [address] CDIFF (PCR)on 06-20-2024 CDIFF Pending [id number] Presumptive Negative *for epidemiolologic???use C. Diff PCR Negative- No toxigenic C. Diff Detected Normal [facility] Comment on above: Performed By: #### L 500.2500, L100.0100 #### [facility] [address] [place], [address] Carbon dioxide measurementOr dered By: Deep Dela Cruz on 06-20-2024 CO2 [Moles/Vol] 24.0 mmol/L 21.0-32.0 [facility] Chloride measurementOrdered By: Deep Dela Cruz on 06-20-2024 Chloride [Moles/Vol] 108 mmol/L High 98-107 [facility] Comprehensive Metabolic Prof ilon 06-20-2024 Albumin [Mass/Vol] 1.9 g/dL Low 3.2-5.0 [facility] Comment on above: Order Comment: 303.2 Performed By: #### L 500.2500, L100.0100 #### [facility] [address] [place], [address] Albumin/Globulin [Mass ratio] 0.5 {ratio} Low 0.9-2.4 [facility] Comment on above: Order Comment: 303.2 Performed By: #### L 500.2500, L100.0100 #### [facility] [address] [place], [address] ALK P 148 U/L High 45-117 [facility] Comment on above: Order Comment: 303.2 Performed By: #### L 500.2500, L100.0100 #### [facility] [address] [place], [address] ALT [Catalytic activity/Vol] 10 U/L Low 13-56 [facility] Comment on above: Order Comment: 303.2 Performed By: #### L 500.2500, L100.0100 #### [facility] [address] [place], [address] AST [Catalytic activity/Vol] 17 U/L Normal 15-37 [facility] Comment on above: Order Comment: 303.2 Performed By: #### L 500.2500, L100.0100 #### [facility] [address] [place], [address] Bilirubin [Mass/Vol] 0.40 mg/dL Normal 0.20-1.00 [facility] Comment on above: Order Comment: 303.2 Result Comment: For patients on eltrombopag therapy, use of Dimension Devol TBIL is not recommended. Performed By: #### L 500.2500, L100.0100 #### [facility] [address] [place], [address] BUN/CRE 30.9 RATIO High 10-20 [facility] Comment on above: Order Comment: 303.2 Performed By: #### L 500.2500, L100.0100 #### [facility] [address] [place], [address] CA,Total 8.7 mg/dL Normal 8.5-10.1 [facility] Comment on above: Order Comment: 303.2 Performed By: #### L 500.2500, L100.0100 #### [facility] [address] [place], [address] Chloride [Moles/Vol] 108 mmol/L High 98-107 [facility] Comment on above: Order Comment: 303.2 Performed By: #### L 500.2500, L100.0100 #### [facility] [address] [place], [address] CO2 [Moles/Vol] 24.0 mmol/L Normal 21.0-32.0 [facility] Comment on above: Order Comment: 303.2 Performed By: #### L 500.2500, L100.0100 #### [facility] [address] [place], [address] Creatinine [Mass/Vol] 0.42 mg/dL Low 0.55-1.02 [facility] Comment on above: Order Comment: 303.2 Result Comment: The validity of the calculated GFR GFRAA in patients over 70 years has not been determined. Clinical correlation is essential. Performed By: #### L 500.2500, L100.0100 #### [facility] [address] [place], [address] EST GFR - AA 185 mL/min Normal >60 [facility] Comment on above: Order Comment: 303.2 Result Comment: Afri can [place] GFR Calc Performed By: #### L 500.2500, L100.0100 #### [facility] [address] [place], [address] GAP 8 Normal 5-15 [facility] Comment on above: Order Comment: 303.2 Performed By: #### L 500.2500, L100.0100 #### [facility] [address] [place], [address] GFR/1.73 sq M.predicted among non-blacks MDRD (S/P/Bld) [Vol rate/Area] 153 mL/min/{1.73_m2} Normal >60 [facility] Comment on above: Order Comment: 303.2 Result Comment: Non- GFR Calc Performed By: #### L 500.2500, L100.0100 #### [facility] [address] [place], [address] Globulin (S) [Mass/Vol] 4.1 g/dL Normal 2.2-4.2 [facility] Comment on above: Order Comment: 303.2 Performed By: #### L 500.2500, L100.0100 #### [facility] [address] [place], [address] Glucose [Mass/Vol] 104 mg/dL Normal 74-106 [facility] Comment on above: Order Comment: 303.2 Result Comment: Fast ing Glucose result from 100 to 125 mg/dL suggests IMPAIRED HOMEOSTASIS per A.D.A. criteria. Performed By: #### L 500.2500, L100.0100 #### [facility] [address] [place], [address] Potassium [Moles/Vol] 3.8 mmol/L Normal 3.5-5.1 [facility] Comment on above: Order Comment: 303.2 Performed By: #### L 500.2500, L100.0100 #### [facility] [address] [place], [address] Sodium [Moles/Vol] 139 mmol/L Normal 136-145 [facility] Comment on above: Order Comment: 303.2 Performed By: #### L 500.2500, L100.0100 #### [facility] [address] [place], [address] T PROT 6.0 g/dL Low 6.4-8.2 [facility] Comment on above: Order Comment: 303.2 Performed By: #### L 500.2500, L100.0100 #### [facility] [address] [place], [address] Urea nitrogen [Mass/Vol] 13 mg/dL Normal 7-18 [facility] Comment on above: Order Comment: 303.2 Performed By: #### L 500.2500, L100.0100 #### [facility] [address] [place], [address] Eosinophil percentageOrdered By: Deep Dela Cruz on 06-20-2024 Eosinophils/100 WBC (Bld) 3.0 % 0-5 [facility] Erythrocyte distribution wid th (RBC) [Ratio]Ordered By: Deep Dela Cruz on 06-20-2024 Erythrocyte distribution width (RBC) [Entitic vol] 51.5 fL High 35.1-43.9 [facility] Erythrocyte distribution wid th ratioOrdered By: Deep Dela Cruz on 06-20-2024 Erythrocyte distribution width (RBC) [Ratio] 15.1 % High 11.6-14.6 [facility] Erythrocyte distribution wid th standard deviationOrdered By: Deep Dela Cruz on 06-20-2024 Erythrocyte distribution width (RBC) [Ratio] 51.5 fl High 35.1-43.9 [facility] Estimated glomerular filtrat ion rate (GFR) AmericanOrdered By: Deep Dela Cruz on 06-20-2024 Estimated GFR (MDRD) Amer 185 mL/min >60 [facility] Comment on above: GFR Calc Glomerular filtration rate ( GFR) estimationOrdered By: Deep Dela Cruz on 06-20-2024 Estimated GFR (MDRD) Non-Af Amer 153 mL/min >60 [facility] Comment on above: Non- GFR Calc GFR/1.73 sq M.predicted among non-blacks MDRD (S/P/Bld) [Vol rate/Area] 153 mL/min/{1.73_m2} >60 [facility] Comment on above: Non- GFR Calc Glucose measurementOrdered B y: Deep Dela Cruz on 06-20-2024 Glucose [Mass/Vol] 104 mg/dL 74-106 [facility] Comment on above: Fasting Glucose resu lt from 100 to 125 mg/dL suggests IMPAIRED HOMEOSTASIS per A.D.A. criteria. Hematocrit Auto (Bld) [Volum e fraction]Ordered By: Deep Dela Cruz on 06-20-2024 Hematocrit (Bld) [Volume fraction] 33.9 % Low 37-47 [facility] Hemoglobin measurementOrdere d By: Deep Dela Cruz on 06-20-2024 Hemoglobin (Bld) [Mass/Vol] 10.5 g/dL Low 12.0-15.0 [facility] Immature granulocytes/100 WB C Auto (Bld)Ordered By: Deep Dela Cruz on 06-20-2024 Immature granulocytes/100 WBC (Bld) 0.500 % 0.0-0.9 [facility] Comment on above: IG% - Immature Granu locytes (promyelocytes, myelocytes and metamyelocytes) > 1% indicates that a LEFT SHIFT is Present. Laboratory - Chemistry and C hemistry - challengeOrdered By: Deep Dela Cruz on 06-20-2024 AST [Catalytic activity/Vol] 17 U/L 15-37 [facility] Lymphocytes Auto (Unsp spec) [#/Vol]Ordered By: Deep Dela Cruz on 06-20-2024 Lymphocytes (Bld) [#/Vol] 1.17 10*3/uL 0.83-4.51 [facility] Lymphocytes/100 WBC Auto (Un sp spec)Ordered By: Deep Dela Cruz on 06-20-2024 Lymphocytes/100 WBC (Bld) 14.7 % Low 19-41 [facility] MCV (mean corpuscular volume ) determinationOrdered By: Deep Dela Cruz on 06-20-2024 MCV (RBC) [Entitic vol] 93.1 fL 81-99 [facility] Mean corpuscular hemoglobin (MCH) determinationOrdered By: Deep Dela Cruz on 06-20-2024 MCH (RBC) [Entitic mass] 28.8 pg 27.0-32.0 [facility] Mean corpuscular hemoglobin concentration (MCHC) determinationOrdered By: Deep Dela Cruz on 06-20-2024 MCHC (RBC) [Mass/Vol] 31.0 g/dL Low 32-36 [facility] Mean platelet volume determi nationOrdered By: Deep Dela Cruz on 06-20-2024 Platelet mean volume (Bld) [Entitic vol] 10.3 fL 6.2-12.0 [facility] Monocyte percentageOrdered B y: Deep Dela Cruz on 06-20-2024 Monocytes/100 WBC (Bld) 11.2 % High 0-10 [facility] Neutrophil percentageOrdered By: Deep Dela Cruz on 06-20-2024 Neutrophils/100 WBC (Bld) 69.5 % 47-70 [facility] Nucleated red blood cell per centageOrdered By: Deep Dela Cruz on 06-20-2024 Nucleated RBC/100 WBC (Bld) [Ratio] 0 % 0-5 [facility] Platelet countOrdered By: Fried on 06-20-2024 Platelets (Bld) [#/Vol] 299 10*3/uL 150-450 [facility] Potassium measurementOrdered By: Deep Dela Cruz on 06-20-2024 Potassium [Moles/Vol] 3.8 mmol/L 3.5-5.1 [facility] RBC Auto (Bld) [#/Vol]Ordere d By: Deep Dela Cruz on 06-20-2024 RBC (Bld) [#/Vol] 3.64 10*6/uL Low 4.2-5.4 [facility] Serum anion gap measurementO rdered By: Deep Dela Cruz on 06-20-2024 Anion gap [Moles/Vol] 8 mmol/L 5-15 [facility] Serum globulin measurementOr dered By: Deep Dela Cruz on 06-20-2024 Globulin (S) [Mass/Vol] 4.1 g/dL 2.2-4.2 [facility] Serum or plasma alanine wilson otransferase (ALT) measurementOrdered By: Deep Dela Cruz on 06-20-2024 ALT [Catalytic activity/Vol] 10 U/L Low 13-56 [facility] Serum or plasma albumin jessi urement (mass/volume)Ordered By: Deep Dela Cruz on 06-20-2024 Albumin [Mass/Vol] 1.9 g/dL Low 3.2-5.0 [facility] Serum or plasma alkaline jero sphatase measurementOrdered By: Deep Dela Cruz on 06-20-2024 ALP [Catalytic activity/Vol] 148 U/L High 45-117 [facility] Serum or plasma calcium jessi urement (mass/volume)Ordered By: Deep Dela Cruz on 06-20-2024 Calcium [Mass/Vol] 8.7 mg/dL 8.5-10.1 [facility] Serum or plasma creatinine m easurement (mass/volume)Ordered By: Deep Dela Cruz on 06-20-2024 Creatinine [Mass/Vol] 0.42 mg/dL Low 0.55-1.02 [facility] Comment on above: The validity of the calculated GFR & GFRAA in patients over 70 years has not been determined. Clinical correlation is essential. Serum or plasma urea nitroge n measurement (mass/volume)Ordered By: Deep Dela Cruz on 06-20-2024 Urea nitrogen [Mass/Vol] 13 mg/dL 7-18 [facility] Sodium levelOrdered By: Deep Dela Cruz on 06-20-2024 Sodium [Moles/Vol] 139 mmol/L 136-145 [facility] Total proteinOrdered By: Janet Dela Cruz on 06-20-2024 Protein [Mass/Vol] 6.0 g/dL Low 6.4-8.2 [facility] White blood cell (WBC) count Ordered By: Deep Dela Cruz on 06-20-2024 WBC (Bld) [#/Vol] 8.0 10*3/uL 4.4-11.0 [facility] C. difficile DNA ANKIT+probe Q l (Unsp spec)Ordered By: Deep Dela Cruz on 06-19-2024 Clostridioides difficile (PCR) [facility] Clostridium difficile detect ion by polymerase chain reactionOrdered By: Deep Dela Cruz on 06-19-2024 C. difficile DNA ANKIT+probe Ql (Unsp spec) [facility] Urine Cultureon 06-16-2024 [facility] Pending Klebsiella pneumoniae [place] Count >100,000 Proteus mirabilis Proteus mirabilis * [...] S Minocycline Islt VERN >=32 R Normal [facility] Comment on above: Performed By: #### L 500.2500, L100.0100 #### [facility] [place], [address] Bilirubin Test strip Ql (U)O rdered By: Deep Dela Cruz on 06-09-2024 Bilirubin Ql (U) Negative Negative [facility] Epithelial cells.squamous LM Ql (Urine sed)Ordered By: Deep Dela Cruz on 06-09-2024 Epithelial cells.squamous LM.HPF (Urine sed) [#/Area] 0 /[HPF] 5-10 [facility] Glucose Ql (U)Ordered By: Fried on 06-09-2024 Urine Glucose (UA) Normal mg/dl Normal [facility] Ketones Test strip Ql (U)Ord ered By: Deep Dela Cruz on 06-09-2024 Ketones Ql (U) Negative Negative [facility] Microscopic analysis of urin e for red blood cells (RBC)Ordered By: Deep Dela Cruz on 06-09-2024 Urine RBC 0 SEEN /hpf 0-5 [facility] Mucus LM Ql (Urine sed)Order ed By: Deep Dela Cruz on 06-09-2024 Mucus Ql (Urine sed) 0 SEEN /hpf [facility] Nitrite Test strip Ql (U)Ord ered By: Deep Dela Cruz on 06-09-2024 Nitrite Ql (U) Positive High Negative [facility] Protein Test strip Ql (U)Ord ered By: Deep Dela Cruz on 06-09-2024 Protein Ql (U) 100 mg/dl High Negative [facility] Urinalysis, Completeon 06-09 BACTERIA 2+ /hpf Normal None Seen [facility] Comment on above: Order Comment: VANITA TER SPECIMEN Performed By: #### L 500.2500, L100.0100 #### [facility] [address] [place], [address] WBC 10-25 SEEN Normal 0-5 [facility] Comment on above: Order Comment: VANITA TER SPECIMEN Performed By: #### L 500.2500, L100.0100 #### [facility] [address] [place], [address] EPI,SQUAMOUS 0 SEEN Normal 5-10 [facility] Comment on above: Order Comment: VANITA TER SPECIMEN Performed By: #### L 500.2500, L100.0100 #### [facility] [address] [place], [address] Mucus Ql (Urine sed) 0 SEEN Normal [facility] Comment on above: Order Comment: VANITA TER SPECIMEN Performed By: #### L 500.2500, L100.0100 #### [facility] [address] [place], [address] RBC 0 SEEN Normal 0-5 [facility] Comment on above: Order Comment: VANITA TER SPECIMEN Performed By: #### L 500.2500, L100.0100 #### [facility] [address] [place], [address] Urine blood detectionOrdered By: Deep Dela Cruz on 06-09-2024 Urine Occult Blood 150 /ul High Negative [facility] Urine clarityOrdered By: Janet Dela Cruz on 06-09-2024 Clarity (U) Turbid Clear [facility] Urine color determinationOrd ered By: Deep Dela Cruz on 06-09-2024 Color (U) Yellow Yellow [facility] Urine cultureOrdered By: Janet Dela Cruz on 06-09-2024 Bacteria identified Cx Nom (U) Klebsiella pneumoniae Abnormal [facility] Bacteria identified Cx Nom (U) Proteus mirabilis Abnormal [facility] Urine leukocyte esterase det ection by dipstickOrdered By: Deep Dela Cruz on 06-09-2024 Leukocyte esterase Test strip Ql (U) 500 /ul High Negative [facility] Urine pHOrdered By: Deep hayes on 06-09-2024 pH (U) 8.0 [pH] 5.0 - 8.0 [facility] Urine sediment bacteria coun t by microscopy (number/high power field)Ordered By: Deep Dela Cruz on 06-09-2024 Bacteria LM.HPF (Urine sed) [#/Area] 2 /[HPF] None Seen [facility] Urine specific gravity measu rementOrdered By: Deep Dela Cruz on 06-09-2024 Specific gravity (U) [Rel density] 1.010 1.002-1.030 [facility] Urobilinogen Ql (U)Ordered B y: Deep Dela Cruz on 06-09-2024 Urine Urobilinogen Normal mg/dl Normal [facility] White blood cell countOrdere d By: Deep Dela Cruz on 06-09-2024 Urine WBC 10-25 SEEN /hpf 0-5 [facility] Albumin to globulin ratioOrd ered By: Deep Dela Cruz on 06-05-2024 Albumin/Globulin [Mass ratio] 0.5 {ratio} Low 0.9-2.4 [facility] Bilirubin, totalOrdered By: Deep Dela Cruz on 06-05-2024 Bilirubin [Mass/Vol] 0.60 mg/dL 0.20-1.00 [facility] Comment on above: For patients on eltr ombopag therapy, use of Dimension Devol TBIL is not recommended. Blood urea nitrogen (BUN)/cr eatinine ratioOrdered By: Deep Dela Cruz on 06-05-2024 Urea nitrogen/Creatinine [Mass ratio] 26.1 mg/mg High 10-20 [facility] CBC-Complete Blood Cnt No Di ffon 06-05-2024 Erythrocyte distribution width (RBC) [Ratio] 15.0 % High 11.6-14.6 [facility] Comment on above: Order Comment: 303-2 Performed By: #### L 500.2500, L100.0100 #### [facility] [address] [place], [address] Hematocrit (Bld) [Volume fraction] 38.0 % Normal 37-47 [facility] Comment on above: Order Comment: 303-2 Performed By: #### L 500.2500, L100.0100 #### [facility] [address] [place], [address] Hemoglobin (Bld) [Mass/Vol] 11.3 g/dL Low 12.0-15.0 [facility] Comment on above: Order Comment: 303-2 Performed By: #### L 500.2500, L100.0100 #### [facility] [address] [place], [address] MCH (RBC) [Entitic mass] 29.3 pg Normal 27.0-32.0 [facility] Comment on above: Order Comment: 303-2 Performed By: #### L 500.2500, L100.0100 #### [facility] [address] [place], [address] MCHC (RBC) [Mass/Vol] 29.7 g/dL Low 32-36 [facility] Comment on above: Order Comment: 303-2 Performed By: #### L 500.2500, L100.0100 #### [facility] [address] [place], [address] MCV (RBC) [Entitic vol] 98.4 fL Normal 81-99 [facility] Comment on above: Order Comment: 303-2 Performed By: #### L 500.2500, L100.0100 #### [facility] [address] [place], [address] Platelet mean volume (Bld) [Entitic vol] 10.7 fL Normal 6.2-12.0 [facility] Comment on above: Order Comment: 303-2 Performed By: #### L 500.2500, L100.0100 #### [facility] [address] [place], [address] Platelets (Bld) [#/Vol] 401 10*3/uL Normal 150-450 [facility] Comment on above: Order Comment: 303-2 Performed By: #### L 500.2500, L100.0100 #### [facility] [address] [place], [address] RBC (Bld) [#/Vol] 3.86 10*6/uL Low 4.2-5.4 [facility] Comment on above: Order Comment: 303-2 Performed By: #### L 500.2500, L100.0100 #### [facility] [address] [place], [address] RDW SD 54.3 fl High 35.1-43.9 [facility] Comment on above: Order Comment: 303-2 Performed By: #### L 500.2500, L100.0100 #### [facility] [address] [place], [address] WBC (Bld) [#/Vol] 4.8 10*3/uL Normal 4.4-11.0 [facility] Comment on above: Order Comment: 303-2 Performed By: #### L 500.2500, L100.0100 #### [facility] [address] [place], [address] Carbon dioxide measurementOr dered By: Deep Dela Cruz on 06-05-2024 CO2 [Moles/Vol] 25.0 mmol/L 21.0-32.0 [facility] Chloride measurementOrdered By: Deep Dela Cruz on 06-05-2024 Chloride [Moles/Vol] 105 mmol/L 98-107 [facility] Comprehensive Metabolic Prof ilon 06-05-2024 Albumin [Mass/Vol] 2.1 g/dL Low 3.2-5.0 [facility] Comment on above: Order Comment: 303-2 Performed By: #### L 500.2500, L100.0100 #### [facility] [address] [place], [address] Albumin/Globulin [Mass ratio] 0.5 {ratio} Low 0.9-2.4 [facility] Comment on above: Order Comment: 303-2 Performed By: #### L 500.2500, L100.0100 #### [facility] [address] [place], [address] ALK P 155 U/L High 45-117 [facility] Comment on above: Order Comment: 303-2 Performed By: #### L 500.2500, L100.0100 #### [facility] [address] [place], [address] ALT [Catalytic activity/Vol] 7 U/L Low 13-56 [facility] Comment on above: Order Comment: 303-2 Performed By: #### L 500.2500, L100.0100 #### [facility] [address] [place], [address] AST [Catalytic activity/Vol] 13 U/L Low 15-37 [facility] Comment on above: Order Comment: 303-2 Performed By: #### L 500.2500, L100.0100 #### [facility] [address] [place], [address] Bilirubin [Mass/Vol] 0.60 mg/dL Normal 0.20-1.00 [facility] Comment on above: Order Comment: 303-2 Result Comment: For patients on eltrombopag therapy, use of Dimension Devol TBIL is not recommended. Performed By: #### L 500.2500, L100.0100 #### [facility] [address] [place], [address] BUN/CRE 26.1 RATIO High 10-20 [facility] Comment on above: Order Comment: 303-2 Performed By: #### L 500.2500, L100.0100 #### [facility] [address] [place], [address] CA,Total 8.9 mg/dL Normal 8.5-10.1 [facility] Comment on above: Order Comment: 303-2 Performed By: #### L 500.2500, L100.0100 #### [facility] [address] [place], [address] Chloride [Moles/Vol] 105 mmol/L Normal 98-107 [facility] Comment on above: Order Comment: 303-2 Performed By: #### L 500.2500, L100.0100 #### [facility] [address] [place], [address] CO2 [Moles/Vol] 25.0 mmol/L Normal 21.0-32.0 [facility] Comment on above: Order Comment: 303-2 Performed By: #### L 500.2500, L100.0100 #### [facility] [address] [place], [address] Creatinine [Mass/Vol] 0.54 mg/dL Low 0.55-1.02 [facility] Comment on above: Order Comment: 303-2 Result Comment: The validity of the calculated GFR GFRAA in patients over 70 years has not been determined. Clinical correlation is essential. Performed By: #### L 500.2500, L100.0100 #### [facility] [address] [place], [address] EST GFR - AA 140 mL/min Normal >60 [facility] Comment on above: Order Comment: 303-2 Result Comment: Afri can [place] GFR Calc Performed By: #### L 500.2500, L100.0100 #### [facility] [address] [place], [address] GAP 7 Normal 5-15 [facility] Comment on above: Order Comment: 303-2 Performed By: #### L 500.2500, L100.0100 #### [facility] [address] [place], [address] GFR/1.73 sq M.predicted among non-blacks MDRD (S/P/Bld) [Vol rate/Area] 116 mL/min/{1.73_m2} Normal >60 [facility] Comment on above: Order Comment: 303-2 Result Comment: Non- GFR Calc Performed By: #### L 500.2500, L100.0100 #### [facility] [address] [place], [address] Globulin (S) [Mass/Vol] 4.4 g/dL High 2.2-4.2 [facility] Comment on above: Order Comment: 303-2 Performed By: #### L 500.2500, L100.0100 #### [facility] [address] [place], [address] Glucose [Mass/Vol] 98 mg/dL Normal 74-106 [facility] Comment on above: Order Comment: 303-2 Performed By: #### L 500.2500, L100.0100 #### [facility] [address] [place], [address] Potassium [Moles/Vol] 3.8 mmol/L Normal 3.5-5.1 [facility] Comment on above: Order Comment: 303-2 Performed By: #### L 500.2500, L100.0100 #### [facility] [address] [place], [address] Sodium [Moles/Vol] 137 mmol/L Normal 136-145 [facility] Comment on above: Order Comment: 303-2 Performed By: #### L 500.2500, L100.0100 #### [facility] [address] [place], [address] T PROT 6.5 g/dL Normal 6.4-8.2 [facility] Comment on above: Order Comment: 303-2 Performed By: #### L 500.2500, L100.0100 #### [facility] [address] [place], [address] Urea nitrogen [Mass/Vol] 14 mg/dL Normal 7-18 [facility] Comment on above: Order Comment: 303-2 Performed By: #### L 500.2500, L100.0100 #### [facility] [address] [place], [address] Erythrocyte distribution wid th (RBC) [Ratio]Ordered By: Deep Dela Cruz on 06-05-2024 Erythrocyte distribution width (RBC) [Entitic vol] 54.3 fL High 35.1-43.9 [facility] Erythrocyte distribution wid th ratioOrdered By: Deep Dela Cruz on 06-05-2024 Erythrocyte distribution width (RBC) [Ratio] 15.0 % High 11.6-14.6 [facility] Estimated glomerular filtrat ion rate (GFR) AmericanOrdered By: Deep Dela Cruz on 06-05-2024 Estimated GFR (MDRD) Amer 140 mL/min >60 [facility] Comment on above: GFR Calc Glomerular filtration rate ( GFR) estimationOrdered By: Deep Dela Cruz on 06-05-2024 Estimated GFR (MDRD) Non-Af Amer 116 mL/min >60 [facility] Comment on above: Non- GFR Calc Glucose measurementOrdered B y: Deep Dela Cruz on 06-05-2024 Glucose [Mass/Vol] 98 mg/dL 74-106 [facility] Hematocrit Auto (Bld) [Volum e fraction]Ordered By: Deep Dela Cruz on 06-05-2024 Hematocrit (Bld) [Volume fraction] 38.0 % 37-47 [facility] Hemoglobin measurementOrdere d By: Deep Dela Cruz on 06-05-2024 Hemoglobin (Bld) [Mass/Vol] 11.3 g/dL Low 12.0-15.0 [facility] - Chemistry and C hemistry - challengeOrdered By: Deep Dela Cruz on 06-05-2024 AST [Catalytic activity/Vol] 13 U/L Low 15-37 [facility] MCV (mean corpuscular volume ) determinationOrdered By: Deep Dela Cruz on 06-05-2024 MCV (RBC) [Entitic vol] 98.4 fL 81-99 [facility] Mean corpuscular hemoglobin (MCH) determinationOrdered By: Deep Dela Cruz on 06-05-2024 MCH (RBC) [Entitic mass] 29.3 pg 27.0-32.0 [facility] Mean corpuscular hemoglobin concentration (MCHC) determinationOrdered By: Deep Dela Cruz on 06-05-2024 MCHC (RBC) [Mass/Vol] 29.7 g/dL Low 32-36 [facility] Mean platelet volume determi nationOrdered By: Deep Dela Cruz on 06-05-2024 Platelet mean volume (Bld) [Entitic vol] 10.7 fL 6.2-12.0 [facility] Platelet countOrdered By: Fried on 06-05-2024 Platelets (Bld) [#/Vol] 401 10*3/uL 150-450 [facility] Potassium measurementOrdered By: Deep Dela Cruz on 06-05-2024 Potassium [Moles/Vol] 3.8 mmol/L 3.5-5.1 [facility] RBC Auto (Bld) [#/Vol]Ordere d By: Deep Dela Cruz on 06-05-2024 RBC (Bld) [#/Vol] 3.86 10*6/uL Low 4.2-5.4 [facility] Serum anion gap measurementO rdered By: Deep Dela Cruz on 06-05-2024 Anion gap [Moles/Vol] 7 mmol/L 5-15 [facility] Serum globulin measurementOr dered By: Deep Dela Cruz on 06-05-2024 Globulin (S) [Mass/Vol] 4.4 g/dL High 2.2-4.2 [facility] Serum or plasma alanine wilson otransferase (ALT) measurementOrdered By: Deep Dela Cruz on 06-05-2024 ALT [Catalytic activity/Vol] 7 U/L Low 13-56 [facility] Serum or plasma albumin jessi urement (mass/volume)Ordered By: Deep Dela Cruz on 06-05-2024 Albumin [Mass/Vol] 2.1 g/dL Low 3.2-5.0 [facility] Serum or plasma alkaline jero sphatase measurementOrdered By: Deep Dela Cruz on 06-05-2024 ALP [Catalytic activity/Vol] 155 U/L High 45-117 [facility] Serum or plasma calcium jessi urement (mass/volume)Ordered By: Deep Dela Cruz on 06-05-2024 Calcium [Mass/Vol] 8.9 mg/dL 8.5-10.1 [facility] Serum or plasma creatinine m easurement (mass/volume)Ordered By: Deep Dela Cruz on 06-05-2024 Creatinine [Mass/Vol] 0.54 mg/dL Low 0.55-1.02 [facility] Comment on above: The validity of the calculated GFR & GFRAA in patients over 70 years has not been determined. Clinical correlation is essential. Serum or plasma urea nitroge n measurement (mass/volume)Ordered By: Deep Dela Cruz on 06-05-2024 Urea nitrogen [Mass/Vol] 14 mg/dL 7-18 [facility] Sodium levelOrdered By: Deep Dela Cruz on 06-05-2024 Sodium [Moles/Vol] 137 mmol/L 136-145 [facility] Total proteinOrdered By: Janet Dela Cruz on 06-05-2024 Protein [Mass/Vol] 6.5 g/dL 6.4-8.2 [facility] White blood cell (WBC) count Ordered By: Deep Dela Cruz on 06-05-2024 WBC (Bld) [#/Vol] 4.8 10*3/uL 4.4-11.0 [facility] Basic Metabolic Profile (BMP )on 05-29-2024 BUN/CRE 30.3 RATIO High 10-20 [facility] Comment on above: Order Comment: 303.2 Performed By: #### L 300.4310, L300.3900 #### [facility] [address] [place], [address] CA,Total 8.6 mg/dL Normal 8.5-10.1 [facility] Comment on above: Order Comment: 303.2 Performed By: #### L 300.4310, L300.3900 #### [facility] [address] [place], [address] Chloride [Moles/Vol] 104 mmol/L Normal 98-107 [facility] Comment on above: Order Comment: 303.2 Performed By: #### L 300.4310, L300.3900 #### [facility] [address] [place], [address] CO2 [Moles/Vol] 26.0 mmol/L Normal 21.0-32.0 [facility] Comment on above: Order Comment: 303.2 Performed By: #### L 300.4310, L300.3900 #### [facility] [address] [place], [address] Creatinine [Mass/Vol] 0.46 mg/dL Low 0.55-1.02 [facility] Comment on above: Order Comment: 303.2 Result Comment: The validity of the calculated GFR GFRAA in patients over 70 years has not been determined. Clinical correlation is essential. Performed By: #### L 300.4310, L300.3900 #### [facility] [address] [place], [address] EST GFR - AA 166 mL/min Normal >60 [facility] Comment on above: Order Comment: 303.2 Result Comment: Afri can [place] GFR Calc Performed By: #### L 300.4310, L300.3900 #### [facility] [address] [place], [address] GAP 7 Normal 5-15 [facility] Comment on above: Order Comment: 303.2 Performed By: #### L 300.4310, L300.3900 #### [facility] [address] [place], [address] GFR/1.73 sq M.predicted among non-blacks MDRD (S/P/Bld) [Vol rate/Area] 137 mL/min/{1.73_m2} Normal >60 [facility] Comment on above: Order Comment: 303.2 Result Comment: Non- GFR Calc Performed By: #### L 300.4310, L300.3900 #### [facility] [address] [place], [address] Glucose [Mass/Vol] 99 mg/dL Normal 74-106 [facility] Comment on above: Order Comment: 303.2 Performed By: #### L 300.4310, L300.3900 #### [facility] [address] [place], [address] Potassium [Moles/Vol] 4.0 mmol/L Normal 3.5-5.1 [facility] Comment on above: Order Comment: 303.2 Performed By: #### L 300.4310, L300.3900 #### [facility] [address] [place], [address] Sodium [Moles/Vol] 137 mmol/L Normal 136-145 [facility] Comment on above: Order Comment: 303.2 Performed By: #### L 300.4310, L300.3900 #### [facility] [address] [place], [address] Urea nitrogen [Mass/Vol] 14 mg/dL Normal 7-18 [facility] Comment on above: Order Comment: 303.2 Performed By: #### L 300.4310, L300.3900 #### [facility] [address] [place], [address] Blood urea nitrogen (BUN)/cr eatinine ratioOrdered By: Deep Dela Cruz on 05-29-2024 Urea nitrogen/Creatinine [Mass ratio] 30.3 mg/mg High 10-20 [facility] CBC-Complete Blood Cnt No Di ffon 05-29-2024 Erythrocyte distribution width (RBC) [Ratio] 15.8 % High 11.6-14.6 [facility] Comment on above: Order Comment: 303.2 Performed By: #### L 300.4310, L300.3900 #### [facility] [address] [place], [address] Hematocrit (Bld) [Volume fraction] 29.1 % Low 37-47 [facility] Comment on above: Order Comment: 303.2 Performed By: #### L 300.4310, L300.3900 #### [facility] [address] [place], [address] Hemoglobin (Bld) [Mass/Vol] 8.8 g/dL Low 12.0-15.0 [facility] Comment on above: Order Comment: 303.2 Performed By: #### L 300.4310, L300.3900 #### [facility] [address] [place], [address] MCH (RBC) [Entitic mass] 28.8 pg Normal 27.0-32.0 [facility] Comment on above: Order Comment: 303.2 Performed By: #### L 300.4310, L300.3900 #### [facility] [address] [place], [address] MCHC (RBC) [Mass/Vol] 30.2 g/dL Low 32-36 [facility] Comment on above: Order Comment: 303.2 Performed By: #### L 300.4310, L300.3900 #### [facility] [address] [place], [address] MCV (RBC) [Entitic vol] 95.1 fL Normal 81-99 [facility] Comment on above: Order Comment: 303.2 Performed By: #### L 300.4310, L300.3900 #### [facility] [address] [place], [address] Platelet mean volume (Bld) [Entitic vol] 10.2 fL Normal 6.2-12.0 [facility] Comment on above: Order Comment: 303.2 Performed By: #### L 300.4310, L300.3900 #### [facility] [address] [place], [address] Platelets (Bld) [#/Vol] 350 10*3/uL Normal 150-450 [facility] Comment on above: Order Comment: 303.2 Performed By: #### L 300.4310, L300.3900 #### [facility] [address] [place], [address] RBC (Bld) [#/Vol] 3.06 10*6/uL Low 4.2-5.4 [facility] Comment on above: Order Comment: 303.2 Performed By: #### L 300.4310, L300.3900 #### [facility] [address] [place], [address] RDW SD 54.8 fl High 35.1-43.9 [facility] Comment on above: Order Comment: 303.2 Performed By: #### L 300.4310, L300.3900 #### [facility] [address] [place], [address] WBC (Bld) [#/Vol] 6.1 10*3/uL Normal 4.4-11.0 [facility] Comment on above: Order Comment: 303.2 Performed By: #### L 300.4310, L300.3900 #### [facility] [address] [place], [address] Carbon dioxide measurementOr dered By: Deep Dela Cruz on 05-29-2024 CO2 [Moles/Vol] 26.0 mmol/L 21.0-32.0 [facility] Chloride measurementOrdered By: Deep Dela Cruz on 05-29-2024 Chloride [Moles/Vol] 104 mmol/L 98-107 [facility] Erythrocyte distribution wid th (RBC) [Ratio]Ordered By: Deep Dela Cruz on 05-29-2024 Erythrocyte distribution width (RBC) [Entitic vol] 54.8 fL High 35.1-43.9 [facility] Erythrocyte distribution wid th ratioOrdered By: Deep Dela Cruz on 05-29-2024 Erythrocyte distribution width (RBC) [Ratio] 15.8 % High 11.6-14.6 [facility] Estimated glomerular filtrat ion rate (GFR) AmericanOrdered By: Deep Dela Cruz on 05-29-2024 Estimated GFR (MDRD) Amer 166 mL/min >60 [facility] Comment on above: GFR Calc Glomerular filtration rate ( GFR) estimationOrdered By: Deep Dela Cruz on 05-29-2024 Estimated GFR (MDRD) Non-Af Amer 137 mL/min >60 [facility] Comment on above: Non- GFR Calc Glucose measurementOrdered B y: Deep Dela Cruz on 05-29-2024 Glucose [Mass/Vol] 99 mg/dL 74-106 [facility] Hematocrit Auto (Bld) [Volum e fraction]Ordered By: Deep Dela Cruz on 05-29-2024 Hematocrit (Bld) [Volume fraction] 29.1 % Low 37-47 [facility] Hemoglobin measurementOrdere d By: Deep Dela Cruz on 05-29-2024 Hemoglobin (Bld) [Mass/Vol] 8.8 g/dL Low 12.0-15.0 [facility] MCV (mean corpuscular volume ) determinationOrdered By: Deep Dela Cruz on 05-29-2024 MCV (RBC) [Entitic vol] 95.1 fL 81-99 [facility] Mean corpuscular hemoglobin (MCH) determinationOrdered By: Deep Dela Cruz on 05-29-2024 MCH (RBC) [Entitic mass] 28.8 pg 27.0-32.0 [facility] Mean corpuscular hemoglobin concentration (MCHC) determinationOrdered By: Deep Dela Cruz on 05-29-2024 MCHC (RBC) [Mass/Vol] 30.2 g/dL Low 32-36 [facility] Mean platelet volume determi nationOrdered By: Deep Dela Cruz on 05-29-2024 Platelet mean volume (Bld) [Entitic vol] 10.2 fL 6.2-12.0 [facility] Platelet countOrdered By: Fried on 05-29-2024 Platelets (Bld) [#/Vol] 350 10*3/uL 150-450 [facility] Potassium measurementOrdered By: Deep Dela Cruz on 05-29-2024 Potassium [Moles/Vol] 4.0 mmol/L 3.5-5.1 [facility] RBC Auto (Bld) [#/Vol]Ordere d By: Deep Dela Cruz on 05-29-2024 RBC (Bld) [#/Vol] 3.06 10*6/uL Low 4.2-5.4 [facility] Serum anion gap measurementO rdered By: Deep Dela Cruz on 05-29-2024 Anion gap [Moles/Vol] 7 mmol/L 5-15 [facility] Serum or plasma calcium jessi urement (mass/volume)Ordered By: Deep Dela Cruz on 05-29-2024 Calcium [Mass/Vol] 8.6 mg/dL 8.5-10.1 [facility] Serum or plasma creatinine m easurement (mass/volume)Ordered By: Deep Dela Cruz on 05-29-2024 Creatinine [Mass/Vol] 0.46 mg/dL Low 0.55-1.02 [facility] Comment on above: The validity of the calculated GFR & GFRAA in patients over 70 years has not been determined. Clinical correlation is essential. Serum or plasma urea nitroge n measurement (mass/volume)Ordered By: Deep Dela Cruz on 05-29-2024 Urea nitrogen [Mass/Vol] 14 mg/dL 7-18 [facility] Sodium levelOrdered By: Deep Dela Cruz on 05-29-2024 Sodium [Moles/Vol] 137 mmol/L 136-145 [facility] White blood cell (WBC) count Ordered By: Deep Dela Cruz on 05-29-2024 WBC (Bld) [#/Vol] 6.1 10*3/uL 4.4-11.0 [facility] Urine Cultureon 05-26-2024 [facility] Results called on 05/26/24-1211 by MARGIE to JOSE . Copy of report sent to Infection Control [facility]inter [id number] 05/26/24 1204 MARGIE. Urine Culture ESBL Escherichia coli [place] Count <1000 MARKER ESBL producing OrganismA MARKER ESBL producing OrganismA [place] Count 25,000-50,000 Presumptive Lactobacillus sp. Ampicillin Islt [...] S Minocycline Islt VERN 1 S Normal [facility] Comment on above: Performed By: #### L 500.2500, L100.0100 #### [facility] [address] [place], [place], [id number] Bacteria LM.HPF (Urine sed) [#/Area]Ordered By: Deep Dela Cruz on 05-23-2024 Urine Bacteria RARE /hpf None Seen [facility] Bilirubin Test strip Ql (U)O rdered By: Deep Dela Cruz on 05-23-2024 Bilirubin Ql (U) Negative Negative [facility] Epithelial cells.squamous LM Ql (Urine sed)Ordered By: Deep Dela Cruz on 05-23-2024 Epithelial cells.squamous LM.HPF (Urine sed) [#/Area] 0 /[HPF] 5-10 [facility] Glucose Ql (U)Ordered By: Fried on 05-23-2024 Urine Glucose (UA) Normal mg/dl Normal [facility] Ketones Test strip Ql (U)Ord ered By: Deep Dela Cruz on 05-23-2024 Ketones Ql (U) Negative Negative [facility] Microscopic analysis of urin e for red blood cells (RBC)Ordered By: Deep Dela Cruz on 05-23-2024 Urine RBC 0 SEEN /hpf 0-5 [facility] Mucus LM Ql (Urine sed)Order ed By: Deep Dela Cruz on 05-23-2024 Mucus Ql (Urine sed) 0 SEEN /hpf [facility] Nitrite Test strip Ql (U)Ord ered By: Deep Dela Cruz on 05-23-2024 Nitrite Ql (U) Negative Negative [facility] Protein Test strip Ql (U)Ord ered By: Deep Dela Cruz on 05-23-2024 Protein Ql (U) 15 mg/dl High Negative [facility] Urinalysis, Completeon 05-23 BACTERIA RARE Normal None Seen [facility] Comment on above: Order Comment: SCCAT HETER SPECIMEN Performed By: #### L 500.2500, L100.0100 #### [facility] [address] [place], [address] EPI,SQUAMOUS 0-5 SEEN Normal 5-10 [facility] Comment on above: Order Comment: SCCAT HETER SPECIMEN Performed By: #### L 500.2500, L100.0100 #### [facility] [address] [place], [address] WBC 10-25 SEEN Normal 0-5 [facility] Comment on above: Order Comment: SCCAT HETER SPECIMEN Performed By: #### L 500.2500, L100.0100 #### [facility] [address] [place], [address] Mucus Ql (Urine sed) 0 SEEN Normal [facility] Comment on above: Order Comment: SCCAT HETER SPECIMEN Performed By: #### L 500.2500, L100.0100 #### [facility] [address] [place], [address] RBC 0 SEEN Normal 0-5 [facility] Comment on above: Order Comment: SCCAT HETER SPECIMEN Performed By: #### L 500.2500, L100.0100 #### [facility] [address] [place], [address] Urine blood detectionOrdered By: Deep Dela Cruz on 05-23-2024 Urine Occult Blood Negative Negative [facility] Urine clarityOrdered By: Janet Dela Cruz on 05-23-2024 Clarity (U) Sl. Cloudy Clear [facility] Urine color determinationOrd ered By: Deep Dela Cruz on 05-23-2024 Color (U) Yellow Yellow [facility] Urine leukocyte esterase det ection by dipstickOrdered By: Deep Dela Cruz on 05-23-2024 Leukocyte esterase Test strip Ql (U) 500 /ul High Negative [facility] Urine pHOrdered By: Deep hayes on 05-23-2024 pH (U) 7.0 [pH] 5.0 - 8.0 [facility] Urine specific gravity measu rementOrdered By: Deep Dela Cruz on 05-23-2024 Specific gravity (U) [Rel density] 1.010 1.002-1.030 [facility] Urobilinogen Ql (U)Ordered B y: Deep Dela Cruz on 05-23-2024 Urine Urobilinogen Normal mg/dl Normal [facility] White blood cell countOrdere d By: Deep Dela Cruz on 05-23-2024 Urine WBC 10-25 SEEN /hpf 0-5 [facility] Albumin to globulin ratioOrd ered By: Deep Dela Cruz on 05-22-2024 Albumin/Globulin [Mass ratio] 0.5 {ratio} Low 0.9-2.4 [facility] Bilirubin, totalOrdered By: Deep Dela Cruz on 05-22-2024 Bilirubin [Mass/Vol] 0.40 mg/dL 0.20-1.00 [facility] Comment on above: For patients on eltr ombopag therapy, use of Dimension Devol TBIL is not recommended. Blood urea nitrogen (BUN)/cr eatinine ratioOrdered By: Deep Dela Cruz on 05-22-2024 Urea nitrogen/Creatinine [Mass ratio] 21.7 mg/mg High 10-20 [facility] CBC-Complete Blood Cnt No Di ffon 05-22-2024 Erythrocyte distribution width (RBC) [Ratio] 15.4 % High 11.6-14.6 [facility] Comment on above: Order Comment: 303.2 Performed By: #### L 500.2500, L100.0100 #### [facility] [address] [place], [address] Hematocrit (Bld) [Volume fraction] 26.4 % Low 37-47 [facility] Comment on above: Order Comment: 303.2 Performed By: #### L 500.2500, L100.0100 #### [facility] [address] [place], [address] Hemoglobin (Bld) [Mass/Vol] 8.0 g/dL Low 12.0-15.0 [facility] Comment on above: Order Comment: 303.2 Performed By: #### L 500.2500, L100.0100 #### [facility] [address] [place], [address] MCH (RBC) [Entitic mass] 28.9 pg Normal 27.0-32.0 [facility] Comment on above: Order Comment: 303.2 Performed By: #### L 500.2500, L100.0100 #### [facility] [address] [place], [address] MCHC (RBC) [Mass/Vol] 30.3 g/dL Low 32-36 [facility] Comment on above: Order Comment: 303.2 Performed By: #### L 500.2500, L100.0100 #### [facility] [address] [place], [address] MCV (RBC) [Entitic vol] 95.3 fL Normal 81-99 [facility] Comment on above: Order Comment: 303.2 Performed By: #### L 500.2500, L100.0100 #### [facility] [address] [place], [address] Platelet mean volume (Bld) [Entitic vol] 10.0 fL Normal 6.2-12.0 [facility] Comment on above: Order Comment: 303.2 Performed By: #### L 500.2500, L100.0100 #### [facility] [address] [place], [address] Platelets (Bld) [#/Vol] 484 10*3/uL High 150-450 [facility] Comment on above: Order Comment: 303.2 Performed By: #### L 500.2500, L100.0100 #### [facility] [address] [place], [address] RBC (Bld) [#/Vol] 2.77 10*6/uL Low 4.2-5.4 [facility] Comment on above: Order Comment: 303.2 Performed By: #### L 500.2500, L100.0100 #### [facility] [address] [place], [address] RDW SD 53.6 fl High 35.1-43.9 [facility] Comment on above: Order Comment: 303.2 Performed By: #### L 500.2500, L100.0100 #### [facility] [address] [place], [address] WBC (Bld) [#/Vol] 8.0 10*3/uL Normal 4.4-11.0 [facility] Comment on above: Order Comment: 303.2 Performed By: #### L 500.2500, L100.0100 #### [facility] [address] [place], [address] CNPNon 05-22-2024 CNPN Normal [facility] Carbon dioxide measurementOr dered By: Deep Dela Cruz on 05-22-2024 CO2 [Moles/Vol] 29.0 mmol/L 21.0-32.0 [facility] Chloride measurementOrdered By: Deep Dela Cruz on 05-22-2024 Chloride [Moles/Vol] 103 mmol/L 98-107 [facility] Comprehensive Metabolic Prof ilon 05-22-2024 Albumin [Mass/Vol] 1.8 g/dL Low 3.2-5.0 [facility] Comment on above: Order Comment: 303.2 Performed By: #### L 500.2500, L100.0100 #### [facility] [address] [place], [address] Albumin/Globulin [Mass ratio] 0.5 {ratio} Low 0.9-2.4 [facility] Comment on above: Order Comment: 303.2 Performed By: #### L 500.2500, L100.0100 #### [facility] [address] [place], [address] ALK P 141 U/L High 45-117 [facility] Comment on above: Order Comment: 303.2 Performed By: #### L 500.2500, L100.0100 #### [facility] [address] [place], [address] ALT [Catalytic activity/Vol] 10 U/L Low 13-56 [facility] Comment on above: Order Comment: 303.2 Performed By: #### L 500.2500, L100.0100 #### [facility] [address] [place], [address] AST [Catalytic activity/Vol] 19 U/L Normal 15-37 [facility] Comment on above: Order Comment: 303.2 Result Comment: Slig ht Hemolysis, Result may be falsely increased. Performed By: #### L 500.2500, L100.0100 #### [facility] [address] [place], [address] Bilirubin [Mass/Vol] 0.40 mg/dL Normal 0.20-1.00 [facility] Comment on above: Order Comment: 303.2 Result Comment: For patients on eltrombopag therapy, use of Dimension Devol TBIL is not recommended. Performed By: #### L 500.2500, L100.0100 #### [facility] [address] [place], [address] BUN/CRE 21.7 RATIO High 10-20 [facility] Comment on above: Order Comment: 303.2 Performed By: #### L 500.2500, L100.0100 #### [facility] [address] [place], [address] CA,Total 8.2 mg/dL Low 8.5-10.1 [facility] Comment on above: Order Comment: 303.2 Performed By: #### L 500.2500, L100.0100 #### [facility] [address] [place], [address] Chloride [Moles/Vol] 103 mmol/L Normal 98-107 [facility] Comment on above: Order Comment: 303.2 Performed By: #### L 500.2500, L100.0100 #### [facility] [address] [place], [address] CO2 [Moles/Vol] 29.0 mmol/L Normal 21.0-32.0 [facility] Comment on above: Order Comment: 303.2 Performed By: #### L 500.2500, L100.0100 #### [facility] [address] [place], [address] Creatinine [Mass/Vol] 0.51 mg/dL Low 0.55-1.02 [facility] Comment on above: Order Comment: 303.2 Result Comment: The validity of the calculated GFR GFRAA in patients over 70 years has not been determined. Clinical correlation is essential. Performed By: #### L 500.2500, L100.0100 #### [facility] [address] [place], [address] EST GFR - AA 149 mL/min Normal >60 [facility] Comment on above: Order Comment: 303.2 Result Comment: Afri can [place] GFR Calc Performed By: #### L 500.2500, L100.0100 #### [facility] [address] [place], [address] GAP 5 Normal 5-15 [facility] Comment on above: Order Comment: 303.2 Performed By: #### L 500.2500, L100.0100 #### [facility] [address] [place], [address] GFR/1.73 sq M.predicted among non-blacks MDRD (S/P/Bld) [Vol rate/Area] 124 mL/min/{1.73_m2} Normal >60 [facility] Comment on above: Order Comment: 303.2 Result Comment: Non- GFR Calc Performed By: #### L 500.2500, L100.0100 #### [facility] [address] [place], [address] Globulin (S) [Mass/Vol] 3.8 g/dL Normal 2.2-4.2 [facility] Comment on above: Order Comment: 303.2 Performed By: #### L 500.2500, L100.0100 #### [facility] [address] [place], [address] Glucose [Mass/Vol] 102 mg/dL Normal 74-106 [facility] Comment on above: Order Comment: 303.2 Result Comment: Fast ing Glucose result from 100 to 125 mg/dL suggests IMPAIRED HOMEOSTASIS per A.D.A. criteria. Performed By: #### L 500.2500, L100.0100 #### [facility] [address] [place], [address] Potassium [Moles/Vol] 4.0 mmol/L Normal 3.5-5.1 [facility] Comment on above: Order Comment: 303.2 Result Comment: Slig ht Hemolysis, Result may be falsely increased. Performed By: #### L 500.2500, L100.0100 #### [facility] [address] [place], [address] Sodium [Moles/Vol] 137 mmol/L Normal 136-145 [facility] Comment on above: Order Comment: 303.2 Performed By: #### L 500.2500, L100.0100 #### [facility] [address] [place], [address] T PROT 5.6 g/dL Low 6.4-8.2 [facility] Comment on above: Order Comment: 303.2 Performed By: #### L 500.2500, L100.0100 #### [facility] [address] [place], [address] Urea nitrogen [Mass/Vol] 11 mg/dL Normal 7-18 [facility] Comment on above: Order Comment: 303.2 Performed By: #### L 500.2500, L100.0100 #### [facility] [address] [place], [address] Erythrocyte distribution wid th (RBC) [Ratio]Ordered By: Deep Dela Cruz on 05-22-2024 Erythrocyte distribution width (RBC) [Entitic vol] 53.6 fL High 35.1-43.9 [facility] Erythrocyte distribution wid th ratioOrdered By: Deep Dela Cruz on 05-22-2024 Erythrocyte distribution width (RBC) [Ratio] 15.4 % High 11.6-14.6 [facility] Estimated glomerular filtrat ion rate (GFR) AmericanOrdered By: Deep Dela Cruz on 05-22-2024 Estimated GFR (MDRD) Amer 149 mL/min >60 [facility] Comment on above: GFR Calc Glomerular filtration rate ( GFR) estimationOrdered By: Deep Dela Cruz on 05-22-2024 Estimated GFR (MDRD) Non-Af Amer 124 mL/min >60 [facility] Comment on above: Non- GFR Calc Glucose measurementOrdered B y: Deep Dela Cruz on 05-22-2024 Glucose [Mass/Vol] 102 mg/dL 74-106 [facility] Comment on above: Fasting Glucose resu lt from 100 to 125 mg/dL suggests IMPAIRED HOMEOSTASIS per A.D.A. criteria. Hematocrit Auto (Bld) [Volum e fraction]Ordered By: Deep Dela Cruz on 05-22-2024 Hematocrit (Bld) [Volume fraction] 26.4 % Low 37-47 [facility] Hemoglobin measurementOrdere d By: Deep Dela Cruz on 05-22-2024 Hemoglobin (Bld) [Mass/Vol] 8.0 g/dL Low 12.0-15.0 [facility] - Chemistry and C hemistry - challengeOrdered By: Deep Dela Cruz on 05-22-2024 AST [Catalytic activity/Vol] 19 U/L 15-37 [facility] Comment on above: Slight Hemolysis, Re sult may be falsely increased. MCV (mean corpuscular volume ) determinationOrdered By: Deep Dela Cruz on 05-22-2024 MCV (RBC) [Entitic vol] 95.3 fL 81-99 [facility] Mean corpuscular hemoglobin (MCH) determinationOrdered By: Deep Dela Cruz on 05-22-2024 MCH (RBC) [Entitic mass] 28.9 pg 27.0-32.0 [facility] Mean corpuscular hemoglobin concentration (MCHC) determinationOrdered By: Deep Dela Cruz on 05-22-2024 MCHC (RBC) [Mass/Vol] 30.3 g/dL Low 32-36 [facility] Mean platelet volume determi nationOrdered By: Deep Dela Cruz on 05-22-2024 Platelet mean volume (Bld) [Entitic vol] 10.0 fL 6.2-12.0 [facility] Platelet countOrdered By: Fried on 05-22-2024 Platelets (Bld) [#/Vol] 484 10*3/uL High 150-450 [facility] Potassium measurementOrdered By: Deep Dela Cruz on 05-22-2024 Potassium [Moles/Vol] 4.0 mmol/L 3.5-5.1 [facility] Comment on above: Slight Hemolysis, Re sult may be falsely increased. RBC Auto (Bld) [#/Vol]Ordere d By: Deep Dela Cruz on 05-22-2024 RBC (Bld) [#/Vol] 2.77 10*6/uL Low 4.2-5.4 [facility] Serum anion gap measurementO rdered By: Deep Dela Cruz on 05-22-2024 Anion gap [Moles/Vol] 5 mmol/L 5-15 [facility] Serum globulin measurementOr dered By: Deep Dela Cruz on 05-22-2024 Globulin (S) [Mass/Vol] 3.8 g/dL 2.2-4.2 [facility] Serum or plasma alanine wilson otransferase (ALT) measurementOrdered By: Deep Dela Cruz on 05-22-2024 ALT [Catalytic activity/Vol] 10 U/L Low 13-56 [facility] Serum or plasma albumin jessi urement (mass/volume)Ordered By: Deep Dela Cruz on 05-22-2024 Albumin [Mass/Vol] 1.8 g/dL Low 3.2-5.0 [facility] Serum or plasma alkaline jero sphatase measurementOrdered By: Deep Dela Cruz on 05-22-2024 ALP [Catalytic activity/Vol] 141 U/L High 45-117 [facility] Serum or plasma calcium jessi urement (mass/volume)Ordered By: Deep Dela Cruz on 05-22-2024 Calcium [Mass/Vol] 8.2 mg/dL Low 8.5-10.1 [facility] Serum or plasma creatinine m easurement (mass/volume)Ordered By: Deep Dela Cruz on 05-22-2024 Creatinine [Mass/Vol] 0.51 mg/dL Low 0.55-1.02 [facility] Comment on above: The validity of the calculated GFR & GFRAA in patients over 70 years has not been determined. Clinical correlation is essential. Serum or plasma urea nitroge n measurement (mass/volume)Ordered By: Deep Dela Cruz on 05-22-2024 Urea nitrogen [Mass/Vol] 11 mg/dL 7-18 [facility] Sodium levelOrdered By: Deep Dela Cruz on 05-22-2024 Sodium [Moles/Vol] 137 mmol/L 136-145 [facility] Total proteinOrdered By: Janet Dela Cruz on 05-22-2024 Protein [Mass/Vol] 5.6 g/dL Low 6.4-8.2 [facility] Urine cultureOrdered By: Janet Dela Cruz on 05-22-2024 Bacteria identified Cx Nom (U) ESBL Escherichia coli Abnormal [facility] Bacteria identified Cx Nom (U) Presumptive Lactobacillus sp. Abnormal [facility] White blood cell (WBC) count Ordered By: Deep Dela Cruz on 05-22-2024 WBC (Bld) [#/Vol] 8.0 10*3/uL 4.4-11.0 [facility] Basic metabolic 2000 panelon 05-19-2024 Anion gap [Moles/Vol] 9 mmol/L Normal 8-15 [facility] Comment on above: Order Comment: Speci men Type: BLOOD SPECIMENOrdering Facility: [facility] Address: [address] [place] [address] Performed By: #### 2 4321-2 ####[facility] LAB[facility]ATORYCLIA [id number] [place] [address] [place] Calcium [Mass/Vol] 8.1 mg/dL Low 8.5-10.2 [facility] Comment on above: Order Comment: Speci men Type: BLOOD SPECIMENOrdering Facility: [facility] Address: [address] [place] [address] Performed By: #### 2 4321-2 ####[facility]ORATORYCLIA [id number] [place] [address] [place] Chloride [Moles/Vol] 99 mmol/L Normal 98-107 [facility] Comment on above: Order Comment: Speci men Type: BLOOD SPECIMENOrdering Facility: [facility] Address: [address] [place] [address] Performed By: #### 2 4321-2 ####[facility]ATORYCLIA [id number] [address] [place] CO2 [Moles/Vol] 27 mmol/L Normal 22-30 [facility] Comment on above: Order Comment: Speci men Type: BLOOD SPECIMENOrdering Facility: [facility] Address: [address] [place] [address] Performed By: #### 2 4321-2 ####[facility] SERVICESCLIA [id number] [address] Creatinine [Mass/Vol] 0.50 mg/dL Low 0.58-0.96 [facility] Comment on above: Order Comment: Speci men Type: BLOOD SPECIMENOrdering Facility: [facility] Address: [address] [place] [address] Performed By: #### 2 4321-2 ####[facility] [id number] [address] Creatinine and Glomerular filtration rate.predicted panel (S/P/Bld) 94 mL/min/1.73m??? Normal >=60 [facility] Comment on above: Order Comment: Speci men Type: BLOOD SPECIMENOrdering Facility: [facility] Address: [address] [place] [address] Result Comment: Kaylene mated Glomerular Filtration Rate [...] GFR. Performed By: #### 2 4321-2 ####[facility]ORYCLIA [id number] [address] Glucose [Mass/Vol] 106 mg/dL High 74-99 [facility] Comment on above: Order Comment: Speci men Type: BLOOD SPECIMENOrdering Facility: [facility] Address: [address] [place] [address] Result Comment: The [place] Diabetes [employer] (ADA) provides guidance for cutoff [...] Standards of Medical Care in Diabetes 2016, [place] [employer]. Diabetes Care. 2016.39(Suppl 1). Performed By: #### 2 4321-2 ####[facility]ATORYCLIA [id number] [address] STATES OF [facility] Potassium [Moles/Vol] 3.8 mmol/L Normal 3.7-5.1 [facility] Comment on above: Order Comment: Speci men Type: BLOOD SPECIMENOrdering Facility: [facility] Address: [address] [place] [address] Performed By: #### 2 4321-2 ####[facility]ORYCLIA [id number] [address] Sodium [Moles/Vol] 135 mmol/L Low 136-144 [facility] Comment on above: Order Comment: Speci men Type: BLOOD SPECIMENOrdering Facility: [facility] Address: [address] [place] [address] Performed By: #### 2 4321-2 ####[facility]ORATORYCLIA [id number] [place] [id number] [place] [facility] Urea nitrogen [Mass/Vol] 13 mg/dL Normal 7-21 [facility] Comment on above: Order Comment: Speci men Type: BLOOD SPECIMENOrdering Facility: [facility] Address: [address] [place] [address] Performed By: #### 2 4321-2 ####[facility]ORATORYCLIA [id number] [place] [id number] [facility] [place] CASE MANAGEMon 05-19-2024 CASE MANAGEM Normal [facility] CBC panel Auto (Bld)on 05-19 Erythrocyte distribution width (RBC) [Ratio] 15.6 % High 11.5-15.0 [facility] Comment on above: Order Comment: Speci men Type: BLOOD SPECIMENOrdering Facility: [facility] Address: [address] [place] [address] Performed By: #### 5 8410-2 ####[facility]ATORYCLIA [id number] [address] OF [facility] Hematocrit (Bld) [Volume fraction] 25.5 % Low 36.0-46.0 [facility] Comment on above: Order Comment: Speci men Type: BLOOD SPECIMENOrdering Facility: [facility] Address: [address] [place] [address] Performed By: #### 5 8410-2 ####[facility]ATORYCLIA [id number] [address] STATES [place] [facility] Hemoglobin (Bld) [Mass/Vol] 8.0 g/dL Low 11.5-15.5 [facility] Comment on above: Order Comment: Speci men Type: BLOOD SPECIMENOrdering Facility: [facility] Address: [address] [place] [address] Performed By: #### 5 8410-2 ####[facility]ATORYCLIA [id number] [address] [place] MCH (RBC) [Entitic mass] 30.3 pg Normal 26.0-34.0 [facility] Comment on above: Order Comment: Speci men Type: BLOOD SPECIMENOrdering Facility: [facility] Address: [address] [place] [address] Performed By: #### 5 8410-2 ####[facility]ORYCLIA [id number] [address] [place] MCHC (RBC) [Mass/Vol] 31.4 g/dL Normal 30.5-36.0 [facility] Comment on above: Order Comment: Speci men Type: BLOOD SPECIMENOrdering Facility: [facility] Address: [address] [place] [address] Performed By: #### 5 8410-2 ####[facility]ATORYCLIA [id number] [address] MCV (RBC) [Entitic vol] 96.6 fL Normal 80.0-100.0 [facility] Comment on above: Order Comment: Speci men Type: BLOOD SPECIMENOrdering Facility: [facility] Address: [address] [place] [address] Performed By: #### 5 8410-2 ####[facility]ORYCLIA [id number] [address] OF [place] Nucleated RBC (Bld) [#/Vol] 10*3/uL Normal <0.01 [facility] Comment on above: Order Comment: Speci men Type: BLOOD SPECIMENOrdering Facility: [facility] Address: [address] [place] [address] Performed By: #### 5 8410-2 ####[facility]ORYCLIA [id number] [address] [place] Platelet mean volume (Bld) [Entitic vol] 10.0 fL Normal 9.0-12.7 [facility] Comment on above: Order Comment: Speci men Type: BLOOD SPECIMENOrdering Facility: [facility] Address: [address] [place] [address] Performed By: #### 5 8410-2 ####[facility]ORYCLIA [id number] [address] OF [place] Platelets (Bld) [#/Vol] 525 10*3/uL High 150-400 [facility] Comment on above: Order Comment: Speci men Type: BLOOD SPECIMENOrdering Facility: [facility] Address: [address] [place] [address] Performed By: #### 5 8410-2 ####[facility]ORYCLIA [id number] [address] [place] RBC (Bld) [#/Vol] 2.64 10*6/uL Low 3.90-5.20 [facility] Comment on above: Order Comment: Speci men Type: BLOOD SPECIMENOrdering Facility: [facility] Address: [address] [place] [address] Performed By: #### 5 8410-2 ####[facility]ATORYCLIA [id number] [place] [address] [place] WBC (Bld) [#/Vol] 9.85 10*3/uL Normal 3.70-11.00 [facility] Comment on above: Order Comment: Speci men Type: BLOOD SPECIMENOrdering Facility: [facility] Address: [address] [place] [address] Performed By: #### 5 8410-2 ####[facility]ATORYCLIA [id number] [address] [place] CNDSon 05-19-2024 CNDS Normal [facility] THERAPY NTon 05-19-2024 THERAPY NT Normal [facility] THERAPY NT Normal [facility] Basic metabolic 2000 panelon 05-18-2024 Anion gap [Moles/Vol] 11 mmol/L Normal 8-15 [facility] Comment on above: Order Comment: Speci men Type: BLOOD SPECIMENOrdering Facility: [facility] Address: [address] [place] [address] Performed By: #### 2 4321-2 ####[facility]ATORYCLIA [id number] [place] [address] [place] Calcium [Mass/Vol] 8.0 mg/dL Low 8.5-10.2 [facility] Comment on above: Order Comment: Speci men Type: BLOOD SPECIMENOrdering Facility: [facility] Address: [address] [place] [address] Performed By: #### 2 4321-2 ####[facility]ATORYCLIA [id number] [place] [address] [place] Chloride [Moles/Vol] 98 mmol/L Normal 98-107 [facility] Comment on above: Order Comment: Speci men Type: BLOOD SPECIMENOrdering Facility: [facility] Address: [address] [place] [address] Performed By: #### 2 4321-2 ####[facility]ATORYCLIA [id number] [place] [id number] [place] CO2 [Moles/Vol] 25 mmol/L Normal 22-30 [facility] Comment on above: Order Comment: Speci men Type: BLOOD SPECIMENOrdering Facility: [facility] Address: [address] [place] [address] Performed By: #### 2 4321-2 ####[facility]ATORYCLIA [id number] [address] [place] Creatinine [Mass/Vol] 0.52 mg/dL Low 0.58-0.96 [facility] Comment on above: Order Comment: Speci men Type: BLOOD SPECIMENOrdering Facility: [facility] Address: [address] [place] [address] Performed By: #### 2 4321-2 ####[facility]ORYCLIA [id number] [address] Creatinine and Glomerular filtration rate.predicted panel (S/P/Bld) 93 mL/min/1.73m??? Normal >=60 [facility] Comment on above: Order Comment: Speci men Type: BLOOD SPECIMENOrdering Facility: [facility] Address: [address] [place] [address] Result Comment: Kaylene mated Glomerular Filtration Rate [...] GFR. Performed By: #### 2 4321-2 ####[facility]ORYCLIA [id number] [address] [place] Glucose [Mass/Vol] 116 mg/dL High 74-99 [facility] Comment on above: Order Comment: Speci men Type: BLOOD SPECIMENOrdering Facility: [facility] Address: [address] [place] [address] Result Comment: The [place] Diabetes [employer] (ADA) provides guidance for cutoff [...] Standards of Medical Care in Diabetes 2016, [place] [employer]. Diabetes Care. 2016.39(Suppl 1). Performed By: #### 2 4321-2 ####[facility]ATORYCLIA [id number] [place] [address] [place] Potassium [Moles/Vol] 3.8 mmol/L Normal 3.7-5.1 [facility] Comment on above: Order Comment: Helen men Type: BLOOD SPECIMENOrdering Facility: [facility] Address: [address] [place] [address] Performed By: #### 2 4321-2 ####[facility]ATORYCLIA [id number] [place] [address] [place] Sodium [Moles/Vol] 134 mmol/L Low 136-144 [facility] Comment on above: Order Comment: Speci men Type: BLOOD SPECIMENOrdering Facility: [facility] Address: [address] [place] [address] Performed By: #### 2 4321-2 ####[facility]ATORYCLIA [id number] [place] [address] [place] Urea nitrogen [Mass/Vol] 13 mg/dL Normal 7-21 [facility] Comment on above: Order Comment: Bernardoi men Type: BLOOD SPECIMENOrdering Facility: [facility] Address: [address] [place] [address] Performed By: #### 2 4321-2 ####[facility]ATORYCLIA [id number] [address] STATES OF [facility] CASE MANAGEMon 05-18-2024 CASE MANAGEM Normal [facility] CASE MANAGEM Normal [facility] CBC panel Auto (Bld)on 05-18 Erythrocyte distribution width (RBC) [Ratio] 15.0 % Normal 11.5-15.0 [facility] Comment on above: Order Comment: Speci men Type: BLOOD SPECIMENOrdering Facility: [facility] Address: [address] [place] [address] Performed By: #### 5 8410-2 ####[facility]ATORYCLIA [id number] [address] STATES [facility] Hematocrit (Bld) [Volume fraction] 27.1 % Low 36.0-46.0 [facility] Comment on above: Order Comment: Speci men Type: BLOOD SPECIMENOrdering Facility: [facility] Address: [address] [place] [address] Performed By: #### 5 8410-2 ####[facility]ORYCLIA [id number] [address] [place] Hemoglobin (Bld) [Mass/Vol] 8.3 g/dL Low 11.5-15.5 [facility] Comment on above: Order Comment: Speci men Type: BLOOD SPECIMENOrdering Facility: [facility] Address: [address] [place] [address] Performed By: #### 5 8410-2 ####[facility]ORYCLIA [id number] [address] [place] MCH (RBC) [Entitic mass] 28.9 pg Normal 26.0-34.0 [facility] Comment on above: Order Comment: Speci men Type: BLOOD SPECIMENOrdering Facility: [facility] Address: [address] [place] [address] Performed By: #### 5 8410-2 ####[facility]ORYCLIA [id number] [address] [place] MCHC (RBC) [Mass/Vol] 30.6 g/dL Normal 30.5-36.0 [facility] Comment on above: Order Comment: Speci men Type: BLOOD SPECIMENOrdering Facility: [facility] Address: [address] [place] [address] Performed By: #### 5 8410-2 ####[facility]ATORYCLIA [id number] [address] [place] MCV (RBC) [Entitic vol] 94.4 fL Normal 80.0-100.0 [facility] Comment on above: Order Comment: Speci men Type: BLOOD SPECIMENOrdering Facility: [facility] Address: [address] [place] [address] Performed By: #### 5 8410-2 ####[facility]ORYCLIA [id number] [address] STATES [facility] Nucleated RBC (Bld) [#/Vol] 0.03 10*3/uL High <0.01 [facility] Comment on above: Order Comment: Speci men Type: BLOOD SPECIMENOrdering Facility: [facility] Address: [address] [place] [address] Performed By: #### 5 8410-2 ####[facility]ATORYCLIA [id number] [address] [place] Platelet mean volume (Bld) [Entitic vol] 9.9 fL Normal 9.0-12.7 [facility] Comment on above: Order Comment: Speci men Type: BLOOD SPECIMENOrdering Facility: [facility] Address: [address] [place] [address] Performed By: #### 5 8410-2 ####[facility]ORYCLIA [id number] [address] [place] Platelets (Bld) [#/Vol] 567 10*3/uL High 150-400 [facility] Comment on above: Order Comment: Speci men Type: BLOOD SPECIMENOrdering Facility: [facility] Address: [address] [place] [address] Performed By: #### 5 8410-2 ####[facility]ORYCLIA [id number] [address] [place] RBC (Bld) [#/Vol] 2.87 10*6/uL Low 3.90-5.20 [facility] Comment on above: Order Comment: Speci men Type: BLOOD SPECIMENOrdering Facility: [facility] Address: [address] [place] [address] Performed By: #### 5 8410-2 ####[facility]ORYCLIA [id number] [address] STATES [place] [facility] WBC (Bld) [#/Vol] 11.98 10*3/uL High 3.70-11.00 [facility] Comment on above: Order Comment: Speci men Type: BLOOD SPECIMENOrdering Facility: [facility] Address: [address] [place] [address] Performed By: #### 5 8410-2 ####[facility]ORYCLIA [id number] [address] THERAPY NTon 05-18-2024 THERAPY NT Normal [facility] URINALYSIS, REFLEX MICROSCOP ICon 05-18-2024 Bacteria LM.HPF (Urine sed) [#/Area] Rare Abnormal None Seen [facility] Comment on above: Order Comment: Speci men Type: URINE SPECIMENOrdering Facility: [facility] Address: [address] [place] [address] Performed By: #### L [id number] ####[facility]ATORYCLIA [id number] [address] OF [facility] Bilirubin Ql (U) Negative Normal Negative [facility] Comment on above: Order Comment: Speci men Type: URINE SPECIMENOrdering Facility: [facility] Address: [address] [place] [address] Performed By: #### L [id number] ####[facility]ATORYCLIA [id number] [place] [address] [place] Clarity (Unsp spec) Dense Turbid Abnormal Clear Akr [facility] Comment on above: Order Comment: Speci men Type: URINE SPECIMENOrdering Facility: [facility] Address: [address] [place] [address] Performed By: #### L [id number] ####[facility]ATORYCLIA [id number] [address] [place] Color (U) [place] Abnormal yellow [facility] Comment on above: Order Comment: Speci men Type: URINE SPECIMENOrdering Facility: [facility] Address: [address] [place] [address] Performed By: #### L [id number] ####[facility]ATORYCLIA [id number] [address] Glucose Test strip (U) [Mass/Vol] Negative Normal Trace, Negative [facility] Comment on above: Order Comment: Speci men Type: URINE SPECIMENOrdering Facility: [facility] Address: [address] [place] [address] Performed By: #### L [id number] ####[facility]ATORYCLIA [id number] [place] [address] [place] Hemoglobin Ql (U) 3+ Abnormal Negative, Trace [facility] Comment on above: Order Comment: Speci men Type: URINE SPECIMENOrdering Facility: [facility] Address: [address] [place] [address] Performed By: #### L [id number] ####[facility]ATORYCLIA [id number] [address] OF [place] Ketones Ql (U) Negative Normal Negative, Trace [facility] Comment on above: Order Comment: Speci men Type: URINE SPECIMENOrdering Facility: [facility] Address: [address] [place] [address] Performed By: #### L [id number] ####[facility]ORYCLIA [id number] [address] OF [place] Leukocyte esterase Test strip Ql (U) 500 Jarrett/uL Abnormal Negative, 25 Jarrett/uL [facility] Comment on above: Order Comment: Speci men Type: URINE SPECIMENOrdering Facility: [facility] Address: [address] [place] [address] Performed By: #### L [id number] ####[facility]ORYCLIA [id number] [address] STATES [facility] Nitrite Ql (U) 2+ Abnormal Negative [facility] Comment on above: Order Comment: Speci men Type: URINE SPECIMENOrdering Facility: [facility] Address: [address] [place] [address] Performed By: #### L [id number] ####[facility]ORYCLIA [id number] [address] pH (U) 6.5 [pH] Normal 5.0-8.0 [facility] Comment on above: Order Comment: Speci men Type: URINE SPECIMENOrdering Facility: [facility] Address: [address] [place] [address] Performed By: #### L [id number] ####[facility]ORYCLIA [id number] [address] [place] Protein (U) [Mass/Vol] 2+ Abnormal Trace , Negative [facility] Comment on above: Order Comment: Speci men Type: URINE SPECIMENOrdering Facility: [facility] Address: [address] [place] [address] Performed By: #### L [id number] ####[facility]ATORYCLIA [id number] [place] [address] [place] RBC LM.HPF (Urine sed) [#/Area] /[HPF] Abnormal 0-3 /HPF [facility] Comment on above: Order Comment: Speci men Type: URINE SPECIMENOrdering Facility: [facility] Address: [address] [place] [address] Performed By: #### L [id number] ####[facility]ORYCLIA [id number] [address] [place] Specific gravity (U) [Rel density] 1.014 Normal 1.005-1.030 [facility] Comment on above: Order Comment: Speci men Type: URINE SPECIMENOrdering Facility: [facility] Address: [address] [place] [address] Performed By: #### L [id number] ####[facility]ORYCLIA [id number] [address] STATES OF [facility] Urobilinogen Ql (U) Normal Normal Normal [facility] Comment on above: Order Comment: Speci men Type: URINE SPECIMENOrdering Facility: [facility] Address: [address] [place] [address] Performed By: #### L [id number] ####[facility]ORYCLIA [id number] [address] STATES OF [facility] WBC LM.HPF (Urine sed) [#/Area] /[HPF] Abnormal 0-5 /HPF [facility] Comment on above: Order Comment: Speci men Type: URINE SPECIMENOrdering Facility: [facility] Address: [address] [place] [address] Performed By: #### L [id number] ####[facility]ATORYCLIA [id number] [place] [address] [place] US DVT LOWER BILon US DVT LOWER POLO Normal [facility] Urinalysis complete panel (U )on 05-18-2024 Bilirubin Ql (U) Normal [facility] Comment on above: Order Comment: Speci men Type: URINE SPECIMENOrdering Facility: [facility] Address: [address] [place] [address] Result Comment: Unab le to quantitate due to possible contamination. Performed By: #### 2 4356-8 ####[facility]ORYCLIA [id number] [address] [place] Clarity (Unsp spec) Turbid Abnormal Clear [facility] Comment on above: Order Comment: Speci men Type: URINE SPECIMENOrdering Facility: [facility] Address: [address] [place] [address] Performed By: #### 2 4356-8 ####[facility]ORYCLIA [id number] [place] [address] [place] Color (U) Yellow Normal Yellow [facility] Comment on above: Order Comment: Speci men Type: URINE SPECIMENOrdering Facility: [facility] Address: [address] [place] [address] Performed By: #### 2 4356-8 ####[facility]ORYCLIA [id number] [address] [place] Glucose Test strip (U) [Mass/Vol] Normal [facility] Comment on above: Order Comment: Speci men Type: URINE SPECIMENOrdering Facility: [facility] Address: [address] [place] [address] Result Comment: Unab le to quantitate due to possible contamination. Performed By: #### 2 4356-8 ####[facility]ATORYCLIA [id number] [address] [place] Hemoglobin Ql (U) Normal [facility] Comment on above: Order Comment: Speci men Type: URINE SPECIMENOrdering Facility: [facility] Address: [address] [place] [address] Result Comment: Unab le to quantitate due to possible contamination. Performed By: #### 2 4356-8 ####[facility]ORYCLIA [id number] [address] [place] Ketones Ql (U) Normal [facility] Comment on above: Order Comment: Speci men Type: URINE SPECIMENOrdering Facility: [facility] Address: [address] [place] [address] Result Comment: Unab le to quantitate due to possible contamination. Performed By: #### 2 4356-8 ####[facility]ATORYCLIA [id number] [address] OF [place] Leukocyte esterase Test strip Ql (U) Normal [facility] Comment on above: Order Comment: Speci men Type: URINE SPECIMENOrdering Facility: [facility] Address: [address] [place] [address] Result Comment: Unab le to quantitate due to possible contamination. Performed By: #### 2 4356-8 ####[facility]ORYCLIA [id number] [address] [place] Nitrite Ql (U) Normal [facility] Comment on above: Order Comment: Speci men Type: URINE SPECIMENOrdering Facility: [facility] Address: [address] [place] [address] Result Comment: Unab le to quantitate due to possible contamination. Performed By: #### 2 4356-8 ####[facility]ORYCLIA [id number] [address] [place] pH (U) Normal [facility] Comment on above: Order Comment: Speci men Type: URINE SPECIMENOrdering Facility: [facility] Address: [address] [place] [address] Result Comment: Unab le to quantitate due to possible contamination. Performed By: #### 2 4356-8 ####[facility]ATORYCLIA [id number] [address] Protein (U) [Mass/Vol] Normal [facility] Comment on above: Order Comment: Speci men Type: URINE SPECIMENOrdering Facility: [facility] Address: [address] [place] [address] Result Comment: Unab le to quantitate due to possible contamination. Performed By: #### 2 4356-8 ####[facility]ATORYCLIA [id number] [address] [place] RBC LM.HPF (Urine sed) [#/Area] /[HPF] Abnormal 0-3 /HPF [facility] Comment on above: Order Comment: Speci men Type: URINE SPECIMENOrdering Facility: [facility] Address: [address] [place] [address] Performed By: #### 2 4356-8 ####[facility]ORYCLIA [id number] [address] [place] Specific gravity (U) [Rel density] Normal [facility] Comment on above: Order Comment: Speci men Type: URINE SPECIMENOrdering Facility: [facility] Address: [address] [place] [address] Result Comment: Unab le to quantitate due to possible contamination. Performed By: #### 2 4356-8 ####[facility]ATORYCLIA [id number] [address] STATES [facility] Urobilinogen Ql (U) Normal [facility] Comment on above: Order Comment: Speci men Type: URINE SPECIMENOrdering Facility: [facility] Address: [address] [place] [address] Result Comment: Unab le to quantitate due to possible contamination. Performed By: #### 2 4356-8 ####[facility]ORYCLIA [id number] [address] [place] WBC LM.HPF (Urine sed) [#/Area] /[HPF] Abnormal 0-5 /HPF [facility] Comment on above: Order Comment: Speci men Type: URINE SPECIMENOrdering Facility: [facility] Address: [address] [place] [address] Performed By: #### 2 4356-8 ####[facility]ATORYCLIA [id number] [place] [address] [place] Basic metabolic 2000 panelon 05-17-2024 Anion gap [Moles/Vol] 9 mmol/L Normal 8-15 [facility] Comment on above: Order Comment: Speci men Type: BLOOD SPECIMENOrdering Facility: [facility] Address: [address] [place] [address] Performed By: #### 2 4321-2 ####[facility]ATORYCLIA [id number] [address] [place] Calcium [Mass/Vol] 7.7 mg/dL Low 8.5-10.2 [facility] Comment on above: Order Comment: Speci men Type: BLOOD SPECIMENOrdering Facility: [facility] Address: [address] [place] [address] Performed By: #### 2 4321-2 ####[facility]ATORYCLIA [id number] [address] OF [facility] Chloride [Moles/Vol] 100 mmol/L Normal 98-107 [facility] Comment on above: Order Comment: Speci men Type: BLOOD SPECIMENOrdering Facility: [facility] Address: [address] [place] [address] Performed By: #### 2 4321-2 ####[facility]ATORYCLIA [id number] [address] OF [place] CO2 [Moles/Vol] 27 mmol/L Normal 22-30 [facility] Comment on above: Order Comment: Speci men Type: BLOOD SPECIMENOrdering Facility: [facility] Address: [address] [place] [address] Performed By: #### 2 4321-2 ####[facility] SERVICESCLIA [id number] [address] OF [facility] Creatinine [Mass/Vol] 0.38 mg/dL Low 0.58-0.96 [facility] Comment on above: Order Comment: Speci men Type: BLOOD SPECIMENOrdering Facility: [facility] Address: [address] [place] [address] Performed By: #### 2 4321-2 ####[facility]ATORYCLIA [id number] [address] Creatinine and Glomerular filtration rate.predicted panel (S/P/Bld) 100 mL/min/1.73m??? Normal >=60 [facility] Comment on above: Order Comment: Speci men Type: BLOOD SPECIMENOrdering Facility: [facility] Address: [address] [place] [address] Result Comment: Kaylene mated Glomerular Filtration Rate [...] GFR. Performed By: #### 2 4321-2 ####[facility]ATORYCLIA [id number] [place] [address] [place] Glucose [Mass/Vol] 105 mg/dL High 74-99 [facility] Comment on above: Order Comment: Speci men Type: BLOOD SPECIMENOrdering Facility: [facility] Address: [address] [place] [address] Result Comment: The [place] Diabetes [employer] (ADA) provides guidance for cutoff [...] Standards of Medical Care in Diabetes 2016, [place] [employer]. Diabetes Care. 2016.39(Suppl 1). Performed By: #### 2 4321-2 ####[facility]ATORYCLIA [id number] [place] [address] [place] Potassium [Moles/Vol] 4.5 mmol/L Normal 3.7-5.1 [facility] Comment on above: Order Comment: Helen rg Type: BLOOD SPECIMENOrdering Facility: [facility] Address: [address] [place] [address] Performed By: #### 2 4321-2 ####[facility]ATORYCLIA [id number] [place] [address] [place] Sodium [Moles/Vol] 136 mmol/L Normal 136-144 [facility] Comment on above: Order Comment: Speci men Type: BLOOD SPECIMENOrdering Facility: [facility] Address: [address] [place] [address] Performed By: #### 2 4321-2 ####[facility]ATORYCLIA [id number] [place] [address] [place] Urea nitrogen [Mass/Vol] 16 mg/dL Normal 7-21 [facility] Comment on above: Order Comment: Speci men Type: BLOOD SPECIMENOrdering Facility: [facility] Address: [address] [place] [address] Performed By: #### 2 4321-2 ####[facility]ATORYCLIA [id number] [address] [place] CASE MANAGEMon 05-17-2024 CASE MANAGEM Normal [facility] CBC panel Auto (Bld)on 05-17 Erythrocyte distribution width (RBC) [Ratio] 15.3 % High 11.5-15.0 [facility] Comment on above: Order Comment: Speci men Type: BLOOD SPECIMENOrdering Facility: [facility] Address: [address] [place] [address] Performed By: #### 5 8410-2 ####[facility]ATORYCLIA [id number] [address] [place] Hematocrit (Bld) [Volume fraction] 26.3 % Low 36.0-46.0 [facility] Comment on above: Order Comment: Speci men Type: BLOOD SPECIMENOrdering Facility: [facility] Address: [address] [place] [address] Performed By: #### 5 8410-2 ####[facility]ATORYCLIA [id number] [address] [place] Hemoglobin (Bld) [Mass/Vol] 8.0 g/dL Low 11.5-15.5 [facility] Comment on above: Order Comment: Speci men Type: BLOOD SPECIMENOrdering Facility: [facility] Address: [address] [place] [address] Performed By: #### 5 8410-2 ####[facility]ATORYCLIA [id number] [address] [place] MCH (RBC) [Entitic mass] 29.1 pg Normal 26.0-34.0 [facility] Comment on above: Order Comment: Speci men Type: BLOOD SPECIMENOrdering Facility: [facility] Address: [address] [place] [address] Performed By: #### 5 8410-2 ####[facility]ATORYCLIA [id number] [address] MCHC (RBC) [Mass/Vol] 30.4 g/dL Low 30.5-36.0 [facility] Comment on above: Order Comment: Speci men Type: BLOOD SPECIMENOrdering Facility: [facility] Address: [address] [place] [address] Performed By: #### 5 8410-2 ####[facility]ATORYCLIA [id number] [address] OF [facility] MCV (RBC) [Entitic vol] 95.6 fL Normal 80.0-100.0 [facility] Comment on above: Order Comment: Speci men Type: BLOOD SPECIMENOrdering Facility: [facility] Address: [address] [place] [address] Performed By: #### 5 8410-2 ####[facility]ORYCLIA [id number] [address] OF [facility] Nucleated RBC (Bld) [#/Vol] 0.06 10*3/uL High <0.01 [facility] Comment on above: Order Comment: Speci men Type: BLOOD SPECIMENOrdering Facility: [facility] Address: [address] [place] [address] Performed By: #### 5 8410-2 ####[facility]ATORYCLIA [id number] [address] STATES [facility] Platelet mean volume (Bld) [Entitic vol] 10.2 fL Normal 9.0-12.7 [facility] Comment on above: Order Comment: Speci men Type: BLOOD SPECIMENOrdering Facility: [facility] Address: [address] [place] [address] Performed By: #### 5 8410-2 ####[facility]ATORYCLIA [id number] [address] [place] Platelets (Bld) [#/Vol] 386 10*3/uL Normal 150-400 [facility] Comment on above: Order Comment: Speci men Type: BLOOD SPECIMENOrdering Facility: [facility] Address: [address] [place] [address] Performed By: #### 5 8410-2 ####[facility]ATORYCLIA [id number] [place] [address] [place] RBC (Bld) [#/Vol] 2.75 10*6/uL Low 3.90-5.20 [facility] Comment on above: Order Comment: Speci men Type: BLOOD SPECIMENOrdering Facility: [facility] Address: [address] [place] [address] Performed By: #### 5 8410-2 ####[facility]ATORYCLIA [id number] [address] [place] WBC (Bld) [#/Vol] 9.63 10*3/uL Normal 3.70-11.00 [facility] Comment on above: Order Comment: Speci men Type: BLOOD SPECIMENOrdering Facility: [facility] Address: [address] [place] [address] Performed By: #### 5 8410-2 ####[facility]ATORYCLIA [id number] [place] [address] [place] Basic metabolic 2000 panelon 05-16-2024 Anion gap [Moles/Vol] 9 mmol/L Normal 8-15 [facility] Comment on above: Order Comment: Speci men Type: BLOOD SPECIMENOrdering Facility: [facility] Address: [address] [place] [address] Performed By: #### 2 4321-2, 19475-2, 2777-1, 33190-9 ####[facility]ATORYCLIA [id number] [address] [place] Calcium [Mass/Vol] 8.1 mg/dL Low 8.5-10.2 [facility] Comment on above: Order Comment: Speci men Type: BLOOD SPECIMENOrdering Facility: [facility] Address: [address] [place] [address] Performed By: #### 2 4321-2, 55982-4, 2777-1, 90040-6 ####[facility]ATORYCLIA [id number] [place] [address] [place] Chloride [Moles/Vol] 102 mmol/L Normal 98-107 [facility] Comment on above: Order Comment: Speci men Type: BLOOD SPECIMENOrdering Facility: [facility] Address: [address] [place] [address] Performed By: #### 2 4321-2, 24211-6, 2776-1, 23185-4 ####[facility]ATORYCLIA [id number] [place] [id number] [place] OF [facility] CO2 [Moles/Vol] 27 mmol/L Normal 22-30 [facility] Comment on above: Order Comment: Speci men Type: BLOOD SPECIMENOrdering Facility: [facility] Address: [address] [place] [address] Performed By: #### 2 4321-2, , 277-1, 16417-8 ####[facility] SERVICESCLIA [id number] [address] STATES OF [facility] Creatinine [Mass/Vol] 0.40 mg/dL Low 0.58-0.96 [facility] Comment on above: Order Comment: Speci men Type: BLOOD SPECIMENOrdering Facility: [facility] Address: [address] [place] [address] Performed By: #### 2 4321-2, 54093-7, 277-1, 72738-5 ####[facility]ATORYCLIA [id number] [place] [address] [facility] Creatinine and Glomerular filtration rate.predicted panel (S/P/Bld) 99 mL/min/1.73m??? Normal >=60 [facility] Comment on above: Order Comment: Speci men Type: BLOOD SPECIMENOrdering Facility: [facility] Address: [address] [place] [address] Result Comment: Kaylene mated Glomerular Filtration Rate [...] actual GFR. Performed By: #### 2 4321-2, 05153-9, 2777-1, 20033-7 ####[facility]ATORYCLIA [id number] [place] [address] [place] Glucose [Mass/Vol] 93 mg/dL Normal 74-99 [facility] Comment on above: Order Comment: Speci ifrah Type: BLOOD SPECIMENOrdering Facility: [facility] Address: [address] [place] [address] Result Comment: The [place] Diabetes [employer] (ADA) provides guidance for cutoff [...] Standards of Medical Care in Diabetes 2016, [place] [employer]. Diabetes Care. 2016.39(Suppl 1). Performed By: #### 2 4321-2, 73979-2, 2776-, 20779-3 ####[facility]ATORYCLIA [id number] [place] [address] [place] Potassium [Moles/Vol] 3.8 mmol/L Normal 3.7-5.1 [facility] Comment on above: Order Comment: Helen rg Type: BLOOD SPECIMENOrdering Facility: [facility] Address: [address] [place] [address] Performed By: #### 2 4321-2, 89695-5, 2777-1, 06488-0 ####[facility]ORYCLIA [id number] [address] [place] Sodium [Moles/Vol] 138 mmol/L Normal 136-144 [facility] Comment on above: Order Comment: Speci men Type: BLOOD SPECIMENOrdering Facility: [facility] Address: [address] [place] [address] Performed By: #### 2 4321-2, 88777-6, 2777-1, 68950-2 ####[facility]ORYCLIA [id number] [address] [place] Urea nitrogen [Mass/Vol] 18 mg/dL Normal 7-21 [facility] Comment on above: Order Comment: Speci men Type: BLOOD SPECIMENOrdering Facility: [facility] Address: [address] [place] [address] Performed By: #### 2 4321-2, 68750-3, 2777-1, 75868-1 ####[facility]ORYCLIA [id number] [address] [place] OF [facility] CBC panel Auto (Bld)on 05-16 Erythrocyte distribution width (RBC) [Ratio] 15.1 % High 11.5-15.0 [facility] Comment on above: Order Comment: Speci men Type: BLOOD SPECIMENOrdering Facility: [facility] Address: [address] [place] [address] Performed By: #### 5 8410-2 ####[facility] LABORATORYCLIA [id number] [address] [place] (Bld) [Volume fraction] 28.4 % Low 36.0-46.0 [facility] Comment on above: Order Comment: Speci men Type: BLOOD SPECIMENOrdering Facility: [facility] Address: [address] [place] [address] Performed By: #### 5 8410-2 ####[facility]ATORYCLIA [id number] [address] [place] Hemoglobin (Bld) [Mass/Vol] 8.9 g/dL Low 11.5-15.5 [facility] Comment on above: Order Comment: Speci men Type: BLOOD SPECIMENOrdering Facility: [facility] Address: [address] [place] [address] Performed By: #### 5 8410-2 ####[facility]ATORYCLIA [id number] [address] MCH (RBC) [Entitic mass] 29.7 pg Normal 26.0-34.0 [facility] Comment on above: Order Comment: Speci men Type: BLOOD SPECIMENOrdering Facility: [facility] Address: [address] [place] [address] Performed By: #### 5 8410-2 ####[facility]ATORYCLIA [id number] [address] MCHC (RBC) [Mass/Vol] 31.3 g/dL Normal 30.5-36.0 [facility] Comment on above: Order Comment: Speci men Type: BLOOD SPECIMENOrdering Facility: [facility] Address: [address] [place] [address] Performed By: #### 5 8410-2 ####[facility]ATORYCLIA [id number] [address] MCV (RBC) [Entitic vol] 94.7 fL Normal 80.0-100.0 [facility] Comment on above: Order Comment: Speci men Type: BLOOD SPECIMENOrdering Facility: [facility] Address: [address] [place] [address] Performed By: #### 5 8410-2 ####[facility]ATORYCLIA [id number] [address] Nucleated RBC (Bld) [#/Vol] 0.08 10*3/uL High <0.01 [facility] Comment on above: Order Comment: Speci men Type: BLOOD SPECIMENOrdering Facility: [facility] Address: [address] [place] [address] Performed By: #### 5 8410-2 ####[facility]ATORYCLIA [id number] [place] [address] Platelet mean volume (Bld) [Entitic vol] 10.1 fL Normal 9.0-12.7 [facility] Comment on above: Order Comment: Speci men Type: BLOOD SPECIMENOrdering Facility: [facility] Address: [address] [place] [address] Performed By: #### 5 8410-2 ####[facility]ATORYCLIA [id number] [place] [address] [place] Platelets (Bld) [#/Vol] 509 10*3/uL High 150-400 [facility] Comment on above: Order Comment: Speci men Type: BLOOD SPECIMENOrdering Facility: [facility] Address: [address] [place] [address] Performed By: #### 5 8410-2 ####[facility]ATORYCLIA [id number] [address] [place] RBC (Bld) [#/Vol] 3.00 10*6/uL Low 3.90-5.20 [facility] Comment on above: Order Comment: Speci men Type: BLOOD SPECIMENOrdering Facility: [facility] Address: [address] [place] [address] Performed By: #### 5 8410-2 ####[facility]ATORYCLIA [id number] [address] [place] WBC (Bld) [#/Vol] 11.08 10*3/uL High 3.70-11.00 [facility] Comment on above: Order Comment: Speci men Type: BLOOD SPECIMENOrdering Facility: [facility] Address: [address] [place] [address] Performed By: #### 5 8410-2 ####[facility]ATORYCLIA [id number] [address] Hepatic function 2000 panelo n 05-16-2024 Albumin [Mass/Vol] 2.4 g/dL Low 3.9-4.9 [facility] Comment on above: Order Comment: Speci men Type: BLOOD SPECIMENOrdering Facility: [facility] Address: [address] [place] [address] Performed By: #### 2 4321-2, 86742-7, 2777-1, 79409-6 ####[facility]ATORYCLIA [id number] [address] ALP [Catalytic activity/Vol] 119 U/L Normal 34-123 [facility] Comment on above: Order Comment: Speci men Type: BLOOD SPECIMENOrdering Facility: [facility] Address: [address] [place] [address] Performed By: #### 2 4321-2, 86013-8, 2776-1, 86863-3 ####[facility]ATORYCLIA [id number] [address] ALT With P-5'-P [Catalytic activity/Vol] 15 U/L Normal 7-38 [facility] Comment on above: Order Comment: Speci men Type: BLOOD SPECIMENOrdering Facility: [facility] Address: [address] [place] [address] Performed By: #### 2 4321-2, 07362-5, 277-1, 28743-2 ####[facility]ATORYCLIA [id number] [address] AST With P-5'-P [Catalytic activity/Vol] 15 U/L Normal 13-35 [facility] Comment on above: Order Comment: Speci men Type: BLOOD SPECIMENOrdering Facility: [facility] Address: [address] [place] [address] Performed By: #### 2 4321-2, 69450-6, 277-1, 00514-9 ####[facility]ATORYCLIA [id number] [address] Bilirubin [Mass/Vol] 0.4 mg/dL Normal 0.2-1.3 [facility] Comment on above: Order Comment: Speci men Type: BLOOD SPECIMENOrdering Facility: [facility] Address: [address] [place] [address] Performed By: #### 2 4321-2, 70269-3, 2777-1, 36890-9 ####[facility]ATORYCLIA [id number] [place] [address] [place] Bilirubin.conjugated [Mass/Vol] mg/dL Normal <0.2 [facility] Comment on above: Order Comment: Speci men Type: BLOOD SPECIMENOrdering Facility: [facility] Address: [address] [place] [address] Performed By: #### 2 4321-2, 17925-8, 2777-1, 62001-3 ####[facility]ATORYCLIA [id number] [place] [id number] [place] Protein [Mass/Vol] 5.4 g/dL Low 6.3-8.0 [facility] Comment on above: Order Comment: Speci men Type: BLOOD SPECIMENOrdering Facility: [facility] Address: [address] [place] [address] Performed By: #### 2 4321-2, 16345-8, 2777-1, 42559-8 ####[facility]ATORYCLIA [id number] [place] [address] [place] Magnesium SerPl-mCncon 05-16 Magnesium [Mass/Vol] 1.9 mg/dL Normal 1.7-2.3 [facility] Comment on above: Order Comment: Speci men Type: BLOOD SPECIMENOrdering Facility: [facility] Address: [address] [place] [address] Performed By: #### 2 4321-2, 04838-6, 2777-1, 00390-0 ####[facility]ATORYCLIA [id number] [place] [id number] [place] Phosphate SerPl-mCncon 05-16 Phosphate [Mass/Vol] 3.5 mg/dL Normal 2.7-4.8 [facility] Comment on above: Order Comment: Speci men Type: BLOOD SPECIMENOrdering Facility: [facility] Address: [address] [place] [address] Performed By: #### 2 4321-2, 05820-9, 2777-1, 15470-9 ####[facility]ATORYCLIA [id number] [place] [address] [place] THERAPY NTon 05-16-2024 THERAPY NT Normal [facility] Basic metabolic 2000 panelon 05-15-2024 Anion gap [Moles/Vol] 7 mmol/L Low 8-15 [facility] Comment on above: Order Comment: Speci men Type: BLOOD SPECIMENOrdering Facility: [facility] Address: [address] [place], [place] [address] Performed By: #### 2 777-1, 75650-9, ####[facility]ATORYCLIA [id number] [place] [address] [place] Calcium [Mass/Vol] 8.2 mg/dL Low 8.5-10.2 [facility] Comment on above: Order Comment: Speci men Type: BLOOD SPECIMENOrdering Facility: [facility] Address: [address] [place], [place] [address] Performed By: #### 2 777-1, 91771-5, ####[facility]ATORYCLIA [id number] [place] [address] [place] Chloride [Moles/Vol] 107 mmol/L Normal 98-107 [facility] Comment on above: Order Comment: Speci men Type: BLOOD SPECIMENOrdering Facility: [facility] Address: [address] [place] [id number] Performed By: #### 2 777-1, 84034-3, ####[facility]ATORYCLIA [id number] [place] [address] [place] CO2 [Moles/Vol] 27 mmol/L Normal 22-30 [facility] Comment on above: Order Comment: Speci men Type: BLOOD SPECIMENOrdering Facility: [facility] Address: [address] [place] [id number] Performed By: #### 2 777-1, 52448-6, ####[facility]PITALIA [id number] [place] [address] [place] [facility] Creatinine [Mass/Vol] 0.37 mg/dL Low 0.58-0.96 [facility] Comment on above: Order Comment: Specmigel rg Type: BLOOD SPECIMENOrdering Facility: [facility] Address: [address] [place] [address] Performed By: #### 2 777-1, , ####[facility] HOSPITALIA [id number] [place] [address] [facility] Creatinine and Glomerular filtration rate.predicted panel (S/P/Bld) 101 mL/min/1.73m??? Normal >=60 [facility] Comment on above: Order Comment: Helen [facility] Type: BLOOD SPECIMENOrdering Facility: [facility] Address: [address] [place] [address] Result Comment: Kaylene mated Glomerular Filtration Rate [...] GFR. Performed By: #### 2 777-1, , ####[facility] HOSPITALIA [id number] [place] [id number] [place] [facility] Glucose [Mass/Vol] 164 mg/dL High 74-99 [facility] Comment on above: Order Comment: Specmigel [facility] Type: BLOOD SPECIMENOrdering Facility: [facility] Address: [address] [place] [address] Result Comment: The [place] [employer] (ADA) provides guidance for cutoff [...] Standards of Medical Care in Diabetes 2016, [place] [employer]. Diabetes Care. 2016.39(Suppl 1). Performed By: #### 2 777-1, 32668-4, ####[facility]ATORYCLIA [id number] [place] [address] [place] Potassium [Moles/Vol] 4.2 mmol/L Normal 3.7-5.1 [facility] Comment on above: Order Comment: Helen rg Type: BLOOD SPECIMENOrdering Facility: [facility] Address: [address] [place] [address] Performed By: #### 2 777-1, 20739-0, ####[facility]ATORYCLIA [id number] [place] [address] [place] Sodium [Moles/Vol] 141 mmol/L Normal 136-144 [facility] Comment on above: Order Comment: Helen rg Type: BLOOD SPECIMENOrdering Facility: [facility] Address: [address] [place] [address] Performed By: #### 2 777-1, 88308-7, ####[facility]ATORYCLIA [id number] [place] [address] [place] Urea nitrogen [Mass/Vol] 21 mg/dL Normal 7-21 [facility] Comment on above: Order Comment: Bernardoi men Type: BLOOD SPECIMENOrdering Facility: [facility] Address: [address] [place] [address] Performed By: #### 2 777-1, , ####[facility]ATORYCLIA [id number] [place] [id number] [place] CASE MANAGEMon 05-15-2024 CASE MANAGEM Normal [facility] CASE MANAGEM Normal [facility] CASE MANAGEM Normal [facility] CBC panel Auto (Bld)on 05-15 Erythrocyte distribution width (RBC) [Ratio] 15.2 % High 11.5-15.0 [facility] Comment on above: Order Comment: Speci men Type: BLOOD SPECIMENOrdering Facility: [facility] Address: [address] [place] [address] Performed By: #### 5 8410-2 ####[facility]ATORYCLIA [id number] [address] STATES OF [facility] Hematocrit (Bld) [Volume fraction] 28.5 % Low 36.0-46.0 [facility] Comment on above: Order Comment: Speci men Type: BLOOD SPECIMENOrdering Facility: [facility] Address: [address] [place] [address] Performed By: #### 5 8410-2 ####[facility]ATORYCLIA [id number] [address] [place] [facility] Hemoglobin (Bld) [Mass/Vol] 8.7 g/dL Low 11.5-15.5 [facility] Comment on above: Order Comment: Speci men Type: BLOOD SPECIMENOrdering Facility: [facility] Address: [address] [place] [address] Performed By: #### 5 8410-2 ####[facility]ATORYCLIA [id number] [address] [place] MCH (RBC) [Entitic mass] 29.7 pg Normal 26.0-34.0 [facility] Comment on above: Order Comment: Speci men Type: BLOOD SPECIMENOrdering Facility: [facility] Address: [address] [place] [address] Performed By: #### 5 8410-2 ####[facility]ATORYCLIA [id number] [address] [place] MCHC (RBC) [Mass/Vol] 30.5 g/dL Normal 30.5-36.0 [facility] Comment on above: Order Comment: Speci men Type: BLOOD SPECIMENOrdering Facility: [facility] Address: [address] [place] [address] Performed By: #### 5 8410-2 ####[facility]ATORYCLIA [id number] [address] MCV (RBC) [Entitic vol] 97.3 fL Normal 80.0-100.0 [facility] Comment on above: Order Comment: Speci men Type: BLOOD SPECIMENOrdering Facility: [facility] Address: [address] [place] [address] Performed By: #### 5 8410-2 ####[facility]ATORYCLIA [id number] [address] OF [place] Nucleated RBC (Bld) [#/Vol] 0.07 10*3/uL High <0.01 [facility] Comment on above: Order Comment: Speci men Type: BLOOD SPECIMENOrdering Facility: [facility] Address: [address] [place] [address] Performed By: #### 5 8410-2 ####[facility]ATORYCLIA [id number] [address] Platelet mean volume (Bld) [Entitic vol] 10.2 fL Normal 9.0-12.7 [facility] Comment on above: Order Comment: Speci men Type: BLOOD SPECIMENOrdering Facility: [facility] Address: [address] [place] [address] Performed By: #### 5 8410-2 ####[facility]ATORYCLIA [id number] [address] Platelets (Bld) [#/Vol] 485 10*3/uL High 150-400 [facility] Comment on above: Order Comment: Speci men Type: BLOOD SPECIMENOrdering Facility: [facility] Address: [address] [place] [address] Performed By: #### 5 8410-2 ####[facility]ATORYCLIA [id number] [address] [place] RBC (Bld) [#/Vol] 2.93 10*6/uL Low 3.90-5.20 [facility] Comment on above: Order Comment: Speci men Type: BLOOD SPECIMENOrdering Facility: [facility] Address: [address] [place] [address] Performed By: #### 5 8410-2 ####[facility]ATORYCLIA [id number] [address] [place] WBC (Bld) [#/Vol] 11.61 10*3/uL High 3.70-11.00 [facility] Comment on above: Order Comment: Speci men Type: BLOOD SPECIMENOrdering Facility: [facility] Address: [address] [place] [address] Performed By: #### 5 8410-2 ####[facility]ATORYCLIA [id number] [address] OF [facility] CONSULT PROGon 05-15-2024 CONSULT PROG Normal [facility] Magn[facility]Pl[facility] Magnesium [Mass/Vol] 2.0 mg/dL Normal 1.7-2.3 [facility] Comment on above: Order Comment: Speci men Type: BLOOD SPECIMENOrdering Facility: [facility] Address: [address] [place] [address] Performed By: #### 2 777-1, 73173-9, ####[facility]ATORYCLIA [id number] [address] [place] NM HEPATOBILIARY WO RXon NM HEPATOBILIARY WO RX Normal [facility] NUTRITIONon 05-15-2024 NUTRITION Normal [facility] Phosphate SerPl-mCncon 05-15 Phosphate [Mass/Vol] 2.0 mg/dL Low 2.7-4.8 [facility] Comment on above: Order Comment: Speci men Type: BLOOD SPECIMENOrdering Facility: [facility] Address: [address] [place] [address] Performed By: #### 2 777-1, 46812-3, ####[facility]ATORYCLIA [id number] [place] [address] [place] Basic metabolic 2000 panelon 05-14-2024 Anion gap [Moles/Vol] 7 mmol/L Low 8-15 [facility] Comment on above: Order Comment: Speci men Type: BLOOD SPECIMENOrdering Facility: [facility] Address: [address] [place] [address] Performed By: #### 2 4321-2, 2776-05, ####[facility]ATORYCLIA [id number] [place] [address] [place] Calcium [Mass/Vol] 8.0 mg/dL Low 8.5-10.2 [facility] Comment on above: Order Comment: Speci men Type: BLOOD SPECIMENOrdering Facility: [facility] Address: [address] [place] [address] Performed By: #### 2 4321-2, 2776-05, ####[facility]ATORYCLIA [id number] [place] [address] [place] Chloride [Moles/Vol] 110 mmol/L High 98-107 [facility] Comment on above: Order Comment: Speci men Type: BLOOD SPECIMENOrdering Facility: [facility] Address: [address] [place] [address] Performed By: #### 2 4321-2, 2776-05, ####[facility]ATORYCLIA [id number] [place] [address] [place] CO2 [Moles/Vol] 26 mmol/L Normal 22-30 [facility] Comment on above: Order Comment: Speci men Type: BLOOD SPECIMENOrdering Facility: [facility] Address: [address] [place] [address] Performed By: #### 2 4321-2, 2776-05, ####[facility]ATORYCLIA [id number] [place] [address] [place] Creatinine [Mass/Vol] 0.47 mg/dL Low 0.58-0.96 [facility] Comment on above: Order Comment: Helen rg Type: BLOOD SPECIMENOrdering Facility: [facility] Address: [address] [place] [address] Performed By: #### 2 4321-2, 2777-1, ####[facility]ATORYCLIA [id number] [place] [address] [place] Creatinine and Glomerular filtration rate.predicted panel (S/P/Bld) 95 mL/min/1.73m??? Normal >=60 [facility] Comment on above: Order Comment: Helen rg Type: BLOOD SPECIMENOrdering Facility: [facility] Address: [address] [place] [address] Result Comment: Kaylene mated Glomerular Filtration Rate [...] Performed By: #### 2 4321-2, 2777-, ####[facility]ATORYCLIA [id number] [place] [id number] [place] Glucose [Mass/Vol] 224 mg/dL High 74-99 [facility] Comment on above: Order Comment: Helen rg Type: BLOOD SPECIMENOrdering Facility: [facility] Address: [address] [place] [address] Result Comment: The [place] [employer] (ADA) provides guidance for cutoff [...] Standards of Medical Care in Diabetes 2016, [place] [employer]. Diabetes Care. 2016.39(Suppl 1). Performed By: #### 2 4321-2, 277-, ####[facility]ATORYCLIA [id number] [place] [address] [place] Potassium [Moles/Vol] 4.2 mmol/L Normal 3.7-5.1 [facility] Comment on above: Order Comment: Speci men Type: BLOOD SPECIMENOrdering Facility: [facility] Address: [address] [place] [address] Performed By: #### 2 4321-2, 2776-05, ####[facility]ATORYCLIA [id number] [address] STATES OF [facility] Sodium [Moles/Vol] 143 mmol/L Normal 136-144 [facility] Comment on above: Order Comment: Speci men Type: BLOOD SPECIMENOrdering Facility: [facility] Address: [address] [place] [address] Performed By: #### 2 4321-2, 2776-05, ####[facility]ORYCLIA [id number] [address] [place] Urea nitrogen [Mass/Vol] 21 mg/dL Normal 7-21 [facility] Comment on above: Order Comment: Speci men Type: BLOOD SPECIMENOrdering Facility: [facility] Address: [address] [place] [address] Performed By: #### 2 4321-2, 2776-05, ####[facility]ATORYCLIA [id number] [place] [id number] [place] CBC panel Auto (Bld)on 05-14 Erythrocyte distribution width (RBC) [Ratio] 15.3 % High 11.5-15.0 [facility] Comment on above: Order Comment: Speci men Type: BLOOD SPECIMENOrdering Facility: [facility] Address: [address] [place] [address] Performed By: #### 5 8410-2 ####[facility]ATORYCLIA [id number] [address] Hematocrit (Bld) [Volume fraction] 24.1 % Low 36.0-46.0 [facility] Comment on above: Order Comment: Speci men Type: BLOOD SPECIMENOrdering Facility: [facility] Address: [address] [place] [address] Performed By: #### 5 8410-2 ####[facility]ATORYCLIA [id number] [address] Hemoglobin (Bld) [Mass/Vol] 7.5 g/dL Low 11.5-15.5 [facility] Comment on above: Order Comment: Speci men Type: BLOOD SPECIMENOrdering Facility: [facility] Address: [address] [place] [address] Performed By: #### 5 8410-2 ####[facility]ATORYCLIA [id number] [address] MCH (RBC) [Entitic mass] 29.6 pg Normal 26.0-34.0 [facility] Comment on above: Order Comment: Speci men Type: BLOOD SPECIMENOrdering Facility: [facility] Address: [address] [place] [address] Performed By: #### 5 8410-2 ####[facility]ATORYCLIA [id number] [address] [place] MCHC (RBC) [Mass/Vol] 31.1 g/dL Normal 30.5-36.0 [facility] Comment on above: Order Comment: Speci men Type: BLOOD SPECIMENOrdering Facility: [facility] Address: [address] [place] [address] Performed By: #### 5 8410-2 ####[facility]ORYCLIA [id number] [address] MCV (RBC) [Entitic vol] 95.3 fL Normal 80.0-100.0 [facility] Comment on above: Order Comment: Speci men Type: BLOOD SPECIMENOrdering Facility: [facility] Address: [address] [place] [address] Performed By: #### 5 8410-2 ####[facility] LABORATORYCLIA [id number] [address] [place] Nucleated RBC (Bld) [#/Vol] 0.02 10*3/uL High <0.01 [facility] Comment on above: Order Comment: Speci men Type: BLOOD SPECIMENOrdering Facility: [facility] Address: [address] [place] [address] Performed By: #### 5 8410-2 ####[facility] LABORATORYCLIA [id number] [address] [place] Platelet mean volume (Bld) [Entitic vol] 10.1 fL Normal 9.0-12.7 [facility] Comment on above: Order Comment: Speci men Type: BLOOD SPECIMENOrdering Facility: [facility] Address: [address] [place] [address] Performed By: #### 5 8410-2 ####[facility]ATORYCLIA [id number] [address] [place] Platelets (Bld) [#/Vol] 409 10*3/uL High 150-400 [facility] Comment on above: Order Comment: Speci men Type: BLOOD SPECIMENOrdering Facility: [facility] Address: [address] [place] [address] Performed By: #### 5 8410-2 ####[facility] LABORATORYCLIA [id number] [place] [address] [place] [place] RBC (Bld) [#/Vol] 2.53 10*6/uL Low 3.90-5.20 [facility] Comment on above: Order Comment: Speci men Type: BLOOD SPECIMENOrdering Facility: [facility] Address: [address] [place] [address] Performed By: #### 5 8410-2 ####[facility]ATORYCLIA [id number] [address] [place] WBC (Bld) [#/Vol] 7.33 10*3/uL Normal 3.70-11.00 [facility] Comment on above: Order Comment: Speci men Type: BLOOD SPECIMENOrdering Facility: [facility] Address: [address] [place] [address] Performed By: #### 5 8410-2 ####[facility]ATORYCLIA [id number] [address] Magnesium SerPl-nc 05-14 Magnesium [Mass/Vol] 2.0 mg/dL Normal 1.7-2.3 [facility] Comment on above: Order Comment: Speci men Type: BLOOD SPECIMENOrdering Facility: [facility] Address: [address] [place] [address] Performed By: #### 2 4321-2, 2777-1, 73972-6 ####[facility]ORYCLIA [id number] [address] Phosphate SerPl-mCncon 05-14 Phosphate [Mass/Vol] 2.9 mg/dL Normal 2.7-4.8 [facility] Comment on above: Order Comment: Speci men Type: BLOOD SPECIMENOrdering Facility: [facility] Address: [address] [place] [address] Performed By: #### 2 4321-2, 2777-1, 58211-9 ####[facility]ORYCLIA [id number] [address] [place] THERAPY NTon 05-14-2024 THERAPY NT Normal [facility] Basic metabolic 2000 panelon 05-13-2024 Anion gap [Moles/Vol] 12 mmol/L Normal 8-15 [facility] Comment on above: Order Comment: Speci men Type: BLOOD SPECIMENOrdering Facility: [facility] Address: [address] [place] [address] Performed By: #### 2 4321-2, 76497-5, 2776-1 ####[facility]ORYCLIA [id number] [address] [place] Calcium [Mass/Vol] 8.3 mg/dL Low 8.5-10.2 [facility] Comment on above: Order Comment: Speci men Type: BLOOD SPECIMENOrdering Facility: [facility] Address: [address] [place] [address] Performed By: #### 2 4321-2, , 2776-05 ####[facility]ATORYCLIA [id number] [place] [address] [place] Chloride [Moles/Vol] 107 mmol/L Normal 98-107 [facility] Comment on above: Order Comment: Speci men Type: BLOOD SPECIMENOrdering Facility: [facility] Address: [address] [place] [address] Performed By: #### 2 4321-2, , 2776-05 ####[facility]ORYCLIA [id number] [address] [place] CO2 [Moles/Vol] 19 mmol/L Low 22-30 [facility] Comment on above: Order Comment: Speci men Type: BLOOD SPECIMENOrdering Facility: [facility] Address: [address] [place] [address] Performed By: #### 2 4321-2, , 2776-05 ####[facility]ORYCLIA [id number] [address] [place] Creatinine [Mass/Vol] 0.56 mg/dL Low 0.58-0.96 [facility] Comment on above: Order Comment: Speci men Type: BLOOD SPECIMENOrdering Facility: [facility] Address: [address] [place] [address] Performed By: #### 2 4321-2, , 2776-05 ####[facility]ATORYCLIA [id number] [address] [place] Creatinine and Glomerular filtration rate.predicted panel (S/P/Bld) 91 mL/min/1.73m??? Normal >=60 [facility] Comment on above: Order Comment: Speci men Type: BLOOD SPECIMENOrdering Facility: [facility] Address: [address] [place] [address] Result Comment: Kaylene mated Glomerular Filtration Rate [...] By: #### 2 4321-2, , 2776-05 ####[facility]ATORYCLIA [id number] [place] [address] [place] Glucose [Mass/Vol] 213 mg/dL High 74-99 [facility] Comment on above: Order Comment: Helen rg Type: BLOOD SPECIMENOrdering Facility: [facility] Address: [address] [place] [address] Result Comment: The [place] Diabetes [employer] (ADA) provides guidance for cutoff [...] Standards of Medical Care in Diabetes 2016, [place] [employer]. Diabetes Care. 2016.39(Suppl 1). Performed By: #### 2 4321-2, , 2776-05 ####[facility]ORYCLIA [id number] [place] [id number] [place] Potassium [Moles/Vol] 3.4 mmol/L Low 3.7-5.1 [facility] Comment on above: Order Comment: Helen rg Type: BLOOD SPECIMENOrdering Facility: [facility] Address: [address] [place] [address] Performed By: #### 2 4321-2, , 2776-05 ####[facility]ATORYCLIA [id number] [place] [id number] [place] Sodium [Moles/Vol] 138 mmol/L Normal 136-144 [facility] Comment on above: Order Comment: Speci men Type: BLOOD SPECIMENOrdering Facility: [facility] Address: [address] [place] [address] Performed By: #### 2 4321-2, , 2776-05 ####[facility]ATORYCLIA [id number] [place] [id number] [place] Urea nitrogen [Mass/Vol] 17 mg/dL Normal 7-21 [facility] Comment on above: Order Comment: Speci men Type: BLOOD SPECIMENOrdering Facility: [facility] Address: [address] [place] [address] Performed By: #### 2 4321-2, , 2776-05 ####[facility]ORYCLIA [id number] [address] [place] CBC panel Auto (Bld)on 05-13 Erythrocyte distribution width (RBC) [Ratio] 15.2 % High 11.5-15.0 [facility] Comment on above: Order Comment: Speci men Type: BLOOD SPECIMENOrdering Facility: [facility] Address: [address] [place] [address] Performed By: #### 5 8410-2 ####[facility]ATORYCLIA [id number] [address] STATES OF [facility] Hematocrit (Bld) [Volume fraction] 24.2 % Low 36.0-46.0 [facility] Comment on above: Order Comment: Speci men Type: BLOOD SPECIMENOrdering Facility: [facility] Address: [address] [place] [address] Performed By: #### 5 8410-2 ####[facility]ATORYCLIA [id number] [place] [address] [place] Hemoglobin (Bld) [Mass/Vol] 7.6 g/dL Low 11.5-15.5 [facility] Comment on above: Order Comment: Speci men Type: BLOOD SPECIMENOrdering Facility: [facility] Address: [address] [place] [address] Performed By: #### 5 8410-2 ####[facility]ATORYCLIA [id number] [address] [place] MCH (RBC) [Entitic mass] 30.2 pg Normal 26.0-34.0 [facility] Comment on above: Order Comment: Speci men Type: BLOOD SPECIMENOrdering Facility: [facility] Address: [address] [place] [address] Performed By: #### 5 8410-2 ####[facility]ATORYCLIA [id number] [address] [place] MCHC (RBC) [Mass/Vol] 31.4 g/dL Normal 30.5-36.0 [facility] Comment on above: Order Comment: Speci men Type: BLOOD SPECIMENOrdering Facility: [facility] Address: [address] [place] [address] Performed By: #### 5 8410-2 ####[facility]ATORYCLIA [id number] [address] [place] MCV (RBC) [Entitic vol] 96.0 fL Normal 80.0-100.0 [facility] Comment on above: Order Comment: Speci men Type: BLOOD SPECIMENOrdering Facility: [facility] Address: [address] [place] [address] Performed By: #### 5 8410-2 ####[facility]ORYCLIA [id number] [address] [place] Nucleated RBC (Bld) [#/Vol] 0.03 10*3/uL High <0.01 [facility] Comment on above: Order Comment: Speci men Type: BLOOD SPECIMENOrdering Facility: [facility] Address: [address] [place] [address] Performed By: #### 5 8410-2 ####[facility]ATORYCLIA [id number] [place] [address] [place] Platelet mean volume (Bld) [Entitic vol] 10.3 fL Normal 9.0-12.7 [facility] Comment on above: Order Comment: Speci men Type: BLOOD SPECIMENOrdering Facility: [facility] Address: [address] [place] [address] Performed By: #### 5 8410-2 ####[facility]ATORYCLIA [id number] [place] [address] [place] Platelets (Bld) [#/Vol] 392 10*3/uL Normal 150-400 [facility] Comment on above: Order Comment: Speci men Type: BLOOD SPECIMENOrdering Facility: [facility] Address: [address] [place] [address] Performed By: #### 5 8410-2 ####[facility]ORYCLIA [id number] [address] [place] RBC (Bld) [#/Vol] 2.52 10*6/uL Low 3.90-5.20 [facility] Comment on above: Order Comment: Speci men Type: BLOOD SPECIMENOrdering Facility: [facility] Address: [address] [place] [address] Performed By: #### 5 8410-2 ####[facility]ORYCLIA [id number] [address] [place] WBC (Bld) [#/Vol] 8.49 10*3/uL Normal 3.70-11.00 [facility] Comment on above: Order Comment: Speci men Type: BLOOD SPECIMENOrdering Facility: [facility] Address: [address] [place] [address] Performed By: #### 5 8410-2 ####[facility]ATORYCLIA [id number] [address] [place] Magnesium [facility] 05-13 Magnesium [Mass/Vol] 1.9 mg/dL Normal 1.7-2.3 [facility] Comment on above: Order Comment: Speci men Type: BLOOD SPECIMENOrdering Facility: [facility] Address: [address] [place] [address] Performed By: #### 2 4321-2, , 2776-05 ####[facility]ATORYCLIA [id number] [place] [address] [place] Phosphate SerPl-mCncon 05-13 Phosphate [Mass/Vol] 2.2 mg/dL Low 2.7-4.8 [facility] Comment on above: Order Comment: Speci men Type: BLOOD SPECIMENOrdering Facility: [facility] Address: [address] [place] [address] Performed By: #### 2 4321-2, , 2776-05 ####[facility]ATORYCLIA [id number] [place] [address] [place] XR ABDOMEN 1V SUPINEon 05-13 XR ABDOMEN 1V SUPINE Normal [facility] Basic metabolic 2000 panelon 05-12-2024 Anion gap [Moles/Vol] 14 mmol/L Normal 8-15 [facility] Comment on above: Order Comment: Speci men Type: BLOOD SPECIMENOrdering Facility: [facility] Address: [address] [place] [address] Performed By: #### 2 4321-2 ####[facility]ATORYCLIA [id number] [place] [address] [place] Calcium [Mass/Vol] 8.2 mg/dL Low 8.5-10.2 [facility] Comment on above: Order Comment: Speci men Type: BLOOD SPECIMENOrdering Facility: [facility] Address: [address] [place] [address] Performed By: #### 2 4321-2 ####[facility]ATORYCLIA [id number] [place] [address] [place] Chloride [Moles/Vol] 105 mmol/L Normal 98-107 [facility] Comment on above: Order Comment: Speci men Type: BLOOD SPECIMENOrdering Facility: [facility] Address: [address] [place] [address] Performed By: #### 2 4321-2 ####[facility]ATORYCLIA [id number] [place] [id number] [place] CO2 [Moles/Vol] 17 mmol/L Low 22-30 [facility] Comment on above: Order Comment: Speci men Type: BLOOD SPECIMENOrdering Facility: [facility] Address: [address] [place] [address] Performed By: #### 2 4321-2 ####[facility]ORYCLIA [id number] [address] [place] Creatinine [Mass/Vol] 0.54 mg/dL Low 0.58-0.96 [facility] Comment on above: Order Comment: Speci men Type: BLOOD SPECIMENOrdering Facility: [facility] Address: [address] [place] [address] Performed By: #### 2 4321-2 ####[facility]ATORYCLIA [id number] [address] Creatinine and Glomerular filtration rate.predicted panel (S/P/Bld) 92 mL/min/1.73m??? Normal >=60 [facility] Comment on above: Order Comment: Speci men Type: BLOOD SPECIMENOrdering Facility: [facility] Address: [address] [place] [address] Result Comment: Kaylene mated Glomerular Filtration Rate [...] GFR. Performed By: #### 2 4321-2 ####[facility]ATORYCLIA [id number] [address] [place] Glucose [Mass/Vol] 227 mg/dL High 74-99 [facility] Comment on above: Order Comment: Speci men Type: BLOOD SPECIMENOrdering Facility: [facility] Address: [address] [place] [address] Result Comment: The [place] Diabetes [employer] (ADA) provides guidance for cutoff [...] Standards of Medical Care in Diabetes 2016, [place] [employer]. Diabetes Care. 2016.39(Suppl 1). Performed By: #### 2 4321-2 ####[facility]ATORYCLIA [id number] [place] [address] [place] Potassium [Moles/Vol] 3.7 mmol/L Normal 3.7-5.1 [facility] Comment on above: Order Comment: Bernardoi men Type: BLOOD SPECIMENOrdering Facility: [facility] Address: [address] [place] [address] Performed By: #### 2 4321-2 ####[facility]ATORYCLIA [id number] [place] [address] [place] Sodium [Moles/Vol] 136 mmol/L Normal 136-144 [facility] Comment on above: Order Comment: Speci men Type: BLOOD SPECIMENOrdering Facility: [facility] Address: [address] [place] [address] Performed By: #### 2 4321-2 ####[facility]ATORYCLIA [id number] [place] [address] [place] Urea nitrogen [Mass/Vol] 16 mg/dL Normal 7-21 [facility] Comment on above: Order Comment: Speci men Type: BLOOD SPECIMENOrdering Facility: [facility] Address: [address] [place] [address] Performed By: #### 2 1-2 ####[facility]ATORYCLIA [id number] [place] [address] [place] Anion gap [Moles/Vol] 15 mmol/L Normal 8-15 [facility] Comment on above: Order Comment: Speci men Type: BLOOD SPECIMENOrdering Facility: [facility] Address: [address] [place] [address] Performed By: #### 2 4321-2, , 2776-05 ####[facility]ATORYCLIA [id number] [place] [address] [place] Calcium [Mass/Vol] 7.7 mg/dL Low 8.5-10.2 [facility] Comment on above: Order Comment: Speci men Type: BLOOD SPECIMENOrdering Facility: [facility] Address: [address] [place] [address] Performed By: #### 2 4320-2, , 2776-05 ####[facility]ATORYCLIA [id number] [place] [address] [place] Chloride [Moles/Vol] 108 mmol/L High 98-107 [facility] Comment on above: Order Comment: Speci men Type: BLOOD SPECIMENOrdering Facility: [facility] Address: [address] [place] [address] Performed By: #### 2 4321-2, , 2776-05 ####[facility]ORYCLIA [id number] [place] [id number] [place] CO2 [Moles/Vol] 17 mmol/L Low 22-30 [facility] Comment on above: Order Comment: Speci men Type: BLOOD SPECIMENOrdering Facility: [facility] Address: [address] [place] [address] Performed By: #### 2 4321-2, , 2776-05 ####[facility]ORYCLIA [id number] [place] [address] [place] Creatinine [Mass/Vol] 0.62 mg/dL Normal 0.58-0.96 [facility] Comment on above: Order Comment: Helen rg Type: BLOOD SPECIMENOrdering Facility: [facility] Address: [address] [place] [address] Performed By: #### 2 4321-2, , 2776-05 ####[facility]ATORYCLIA [id number] [address] OF [facility] Creatinine and Glomerular filtration rate.predicted panel (S/P/Bld) 89 mL/min/1.73m??? Normal >=60 [facility] Comment on above: Order Comment: Helen rg Type: BLOOD SPECIMENOrdering Facility: [facility] Address: [address] [place] [address] Result Comment: Kaylene mated Glomerular Filtration Rate [...] By: #### 2 4321-2, , 2776-05 ####[facility]ATORYCLIA [id number] [place] [address] [place] Glucose [Mass/Vol] 140 mg/dL High 74-99 [facility] Comment on above: Order Comment: Helen rg Type: BLOOD SPECIMENOrdering Facility: [facility] Address: [address] [place] [address] Result Comment: The [place] Diabetes [employer] (ADA) provides guidance for cutoff [...] Standards of Medical Care in Diabetes 2016, [place] [employer]. Diabetes Care. 2016.39(Suppl 1). Performed By: #### 2 4321-2, , 2776-05 ####[facility]ATORYCLIA [id number] [place] [address] [place] Potassium [Moles/Vol] 3.4 mmol/L Low 3.7-5.1 [facility] Comment on above: Order Comment: Speci men Type: BLOOD SPECIMENOrdering Facility: [facility] Address: [address] [place] [address] Performed By: #### 2 4321-2, , 2776-05 ####[facility]ATORYCLIA [id number] [address] STATES OF [facility] Sodium [Moles/Vol] 140 mmol/L Normal 136-144 [facility] Comment on above: Order Comment: Speci men Type: BLOOD SPECIMENOrdering Facility: [facility] Address: [address] [place] [address] Performed By: #### 2 4321-2, , 2776-05 ####[facility]ATORYCLIA [id number] [address] [place] Urea nitrogen [Mass/Vol] 16 mg/dL Normal 7-21 [facility] Comment on above: Order Comment: Speci men Type: BLOOD SPECIMENOrdering Facility: [facility] Address: [address] [place] [address] Performed By: #### 2 4321-2, , 2776-05 ####[facility]ATORYCLIA [id number] [place] [id number] [place] CASE MANAGEMon 05-12-2024 CASE MANAGEM Normal [facility] CBC panel Auto (Bld)on 05-12 Erythrocyte distribution width (RBC) [Ratio] 15.4 % High 11.5-15.0 [facility] Comment on above: Order Comment: Speci men Type: BLOOD SPECIMENOrdering Facility: [facility] Address: [address] [place] [address] Performed By: #### 5 8410-2 ####[facility]ATORYCLIA [id number] [address] Hematocrit (Bld) [Volume fraction] 25.1 % Low 36.0-46.0 [facility] Comment on above: Order Comment: Speci men Type: BLOOD SPECIMENOrdering Facility: [facility] Address: [address] [place] [address] Performed By: #### 5 8410-2 ####[facility]ATORYCLIA [id number] [address] OF [facility] Hemoglobin (Bld) [Mass/Vol] 8.0 g/dL Low 11.5-15.5 [facility] Comment on above: Order Comment: Speci men Type: BLOOD SPECIMENOrdering Facility: [facility] Address: [address] [place] [address] Performed By: #### 5 8410-2 ####[facility]ATORYCLIA [id number] [address] MCH (RBC) [Entitic mass] 30.4 pg Normal 26.0-34.0 [facility] Comment on above: Order Comment: Speci men Type: BLOOD SPECIMENOrdering Facility: [facility] Address: [address] [place] [address] Performed By: #### 5 8410-2 ####[facility]ORYCLIA [id number] [address] OF [facility] MCHC (RBC) [Mass/Vol] 31.9 g/dL Normal 30.5-36.0 [facility] Comment on above: Order Comment: Speci men Type: BLOOD SPECIMENOrdering Facility: [facility] Address: [address] [place] [address] Performed By: #### 5 8410-2 ####[facility]ORYCLIA [id number] [address] MCV (RBC) [Entitic vol] 95.4 fL Normal 80.0-100.0 [facility] Comment on above: Order Comment: Speci men Type: BLOOD SPECIMENOrdering Facility: [facility] Address: [address] [place] [address] Performed By: #### 5 8410-2 ####[facility]ATORYCLIA [id number] [place] [address] [place] Platelet mean volume (Bld) [Entitic vol] 10.3 fL Normal 9.0-12.7 [facility] Comment on above: Order Comment: Speci men Type: BLOOD SPECIMENOrdering Facility: [facility] Address: [address] [place] [address] Performed By: #### 5 8410-2 ####[facility]ORYCLIA [id number] [place] [address] [place] Platelets (Bld) [#/Vol] 373 10*3/uL Normal 150-400 [facility] Comment on above: Order Comment: Speci men Type: BLOOD SPECIMENOrdering Facility: [facility] Address: [address] [place] [address] Performed By: #### 5 8410-2 ####[facility]ORYCLIA [id number] [place] [address] [place] RBC (Bld) [#/Vol] 2.63 10*6/uL Low 3.90-5.20 [facility] Comment on above: Order Comment: Speci men Type: BLOOD SPECIMENOrdering Facility: [facility] Address: [address] [place] [address] Performed By: #### 5 8410-2 ####[facility]ATORYCLIA [id number] [place] [address] [place] WBC (Bld) [#/Vol] 8.48 10*3/uL Normal 3.70-11.00 [facility] Comment on above: Order Comment: Speci men Type: BLOOD SPECIMENOrdering Facility: [facility] Address: [address] [place] [address] Performed By: #### 5 8410-2 ####[facility]ORYCLIA [id number] [address] [place] Erythrocyte distribution width (RBC) [Ratio] 15.4 % High 11.5-15.0 [facility] Comment on above: Order Comment: Speci men Type: BLOOD SPECIMENOrdering Facility: [facility] Address: [address] [place] [address] Performed By: #### 5 8410-2 ####[facility] LABORATORYCLIA [id number] [address] [place] OF [facility] Hematocrit (Bld) [Volume fraction] 22.9 % Low 36.0-46.0 [facility] Comment on above: Order Comment: Speci men Type: BLOOD SPECIMENOrdering Facility: [facility] Address: [address] [place] [address] Performed By: #### 5 8410-2 ####[facility] LABORATORYCLIA [id number] [address] OF [facility] Hemoglobin (Bld) [Mass/Vol] 7.2 g/dL Low 11.5-15.5 [facility] Comment on above: Order Comment: Speci men Type: BLOOD SPECIMENOrdering Facility: [facility] Address: [address] [place] [address] Performed By: #### 5 8410-2 ####[facility] LAB[facility]ATORYCLIA [id number] [address] [place] MCH (RBC) [Entitic mass] 30.4 pg Normal 26.0-34.0 [facility] Comment on above: Order Comment: Speci men Type: BLOOD SPECIMENOrdering Facility: [facility] Address: [address] [place] [address] Performed By: #### 5 8410-2 ####[facility]ATORYCLIA [id number] [address] [place] MCHC (RBC) [Mass/Vol] 31.4 g/dL Normal 30.5-36.0 [facility] Comment on above: Order Comment: Speci men Type: BLOOD SPECIMENOrdering Facility: [facility] Address: [address] [place] [address] Performed By: #### 5 8410-2 ####[facility]ORATORYCLIA [id number] [address] MCV (RBC) [Entitic vol] 96.6 fL Normal 80.0-100.0 [facility] Comment on above: Order Comment: Speci men Type: BLOOD SPECIMENOrdering Facility: [facility] Address: [address] [place] [address] Performed By: #### 5 8410-2 ####[facility]ATORYCLIA [id number] [address] Nucleated RBC (Bld) [#/Vol] 10*3/uL Normal <0.01 [facility] Comment on above: Order Comment: Speci men Type: BLOOD SPECIMENOrdering Facility: [facility] Address: [address] [place] [address] Performed By: #### 5 8410-2 ####[facility]ATORYCLIA [id number] [address] Platelet mean volume (Bld) [Entitic vol] 10.6 fL Normal 9.0-12.7 [facility] Comment on above: Order Comment: Speci men Type: BLOOD SPECIMENOrdering Facility: [facility] Address: [address] [place] [address] Performed By: #### 5 8410-2 ####[facility]ATORYCLIA [id number] [address] Platelets (Bld) [#/Vol] 286 10*3/uL Normal 150-400 [facility] Comment on above: Order Comment: Speci men Type: BLOOD SPECIMENOrdering Facility: [facility] Address: [address] [place] [address] Performed By: #### 5 8410-2 ####[facility]ATORYCLIA [id number] [address] [place] RBC (Bld) [#/Vol] 2.37 10*6/uL Low 3.90-5.20 [facility] Comment on above: Order Comment: Speci men Type: BLOOD SPECIMENOrdering Facility: [facility] Address: [address] [place] [address] Performed By: #### 5 8410-2 ####[facility]ATORYCLIA [id number] [place] [address] [place] [facility] WBC (Bld) [#/Vol] 9.72 10*3/uL Normal 3.70-11.00 [facility] Comment on above: Order Comment: Speci men Type: BLOOD SPECIMENOrdering Facility: [facility] Address: [address] [place] [address] Performed By: #### 5 8410-2 ####[facility]ATORYCLIA [id number] [address] [place] CONSULTon 05-12-2024 CONSULT Normal [facility] Calcium.ionized [Moles/Vol]o n 05-12-2024 Calcium.ionized (BldV) [Mass/Vol] 1.15 mmol/L Normal 1.08-1.30 [facility] Comment on above: Order Comment: Speci men Type: BLOOD SPECIMENOrdering Facility: [facility] Address: [address] [place] [address] Performed By: #### 1 995-0 ####[facility]ATORYCLIA [id number] [address] Calcium.ionized adjusted to pH 7.4 (Bld) [Moles/Vol] 1.14 mmol/L Normal 1.08-1.30 [facility] Comment on above: Order Comment: Speci men Type: BLOOD SPECIMENOrdering Facility: [facility] Address: [address] [place] [address] Performed By: #### 1 995-0 ####[facility]ATORYCLIA [id number] [address] [place] ECG COMPLETEon 05-12-2024 ECG COMPLETE Normal [facility] Magnesium SerPl-mCncon 05-12 Magnesium [Mass/Vol] 1.7 mg/dL Normal 1.7-2.3 [facility] Comment on above: Order Comment: Speci men Type: BLOOD SPECIMENOrdering Facility: [facility] Address: [address] [place] [address] Performed By: #### 2 4321-2, 99053-8, 2777-1 ####[facility]ATORYCLIA [id number] [address] [place] NURSING PROGon 05-12-2024 NURSING PROG Normal [facility] NUTRITIONon 05-12-2024 NUTRITION Normal [facility] Phosphate [Mass/Vol] 2.9 mg/dL Normal 2.7-4.8 [facility] Comment on above: Order Comment: Speci men Type: BLOOD SPECIMENOrdering Facility: [facility] Address: [address] [place] [address] Performed By: #### 2 4321-2, 00096-8, 2777-1 ####[facility]ATORYCLIA [id number] [address] [place] THERAPY NTon 05-12-2024 THERAPY NT Normal [facility] ARTERIAL BLOOD GASESon 05-11 Base deficit (BldA) [Moles/Vol] -5 mmol/L Low -2-0 [facility] Comment on above: Order Comment: Speci men Type: ARTERIAL BLOOD SPECIMENOrdering Facility: [facility] Address: [address] [place] [address] Performed By: #### A LLBG ####[facility]ATORYCLIA [id number] [address] [place] Body temperature 98.6 [degF] Normal [facility] Comment on above: Order Comment: Speci men Type: ARTERIAL BLOOD SPECIMENOrdering Facility: [facility] Address: [address] [place] [address] Performed By: #### A LLBG ####[facility]ATORYCLIA [id number] [address] STATES OF [facility] Calcium.ionized (BldV) [Mass/Vol] 1.16 mmol/L Normal 1.08-1.30 [facility] Comment on above: Order Comment: Speci men Type: ARTERIAL BLOOD SPECIMENOrdering Facility: [facility] Address: [address] [place] [address] Performed By: #### A LLBG ####[facility]ATORYCLIA [id number] [address] Calcium.ionized adjusted to pH 7.4 (BldA) [Moles/Vol] 1.19 mmol/L Normal 1.08-1.30 [facility] Comment on above: Order Comment: Speci men Type: ARTERIAL BLOOD SPECIMENOrdering Facility: [facility] Address: [address] [place] [address] Performed By: #### A LLBG ####[facility]ATORYCLIA [id number] [address] OF [facility] Carboxyhemoglobin (BldA) [Mass fraction] 1.5 % Normal 0.0-2.0 [facility] Comment on above: Order Comment: Speci men Type: ARTERIAL BLOOD SPECIMENOrdering Facility: [facility] Address: [address] [place] [address] Result Comment: Carb oxyhemoglobin Reference Range for Smokers: 2.0-8.0% Performed By: #### A LLBG ####[facility]ATORYCLIA [id number] [address] [place] Chloride [Moles/Vol] 107 mmol/L High 97-105 [facility] Comment on above: Order Comment: Speci men Type: ARTERIAL BLOOD SPECIMENOrdering Facility: [facility] Address: [address] [place] [address] Performed By: #### A LLBG ####[facility]ATORYCLIA [id number] [address] [place] CO2 (Bld) [Partial pressure] 26 mm Hg Low 36-46 [facility] Comment on above: Order Comment: Speci men Type: ARTERIAL BLOOD SPECIMENOrdering Facility: [facility] Address: [address] [place] [address] Performed By: #### A LLBG ####[facility]ATORYCLIA [id number] [address] [place] Glucose [Mass/Vol] 178 mg/dL High 60-105 [facility] Comment on above: Order Comment: Speci men Type: ARTERIAL BLOOD SPECIMENOrdering Facility: [facility] Address: [address] [place] [address] Performed By: #### A LLBG ####[facility]ATORYCLIA [id number] [place] [address] [place] HCO3 (Bld) [Moles/Vol] 18 mmol/L Low 22-26 [facility] Comment on above: Order Comment: Speci men Type: ARTERIAL BLOOD SPECIMENOrdering Facility: [facility] Address: [address] [place] [address] Performed By: #### A LLBG ####[facility]ATORYCLIA [id number] [address] [place] Hematocrit (Bld) [Volume fraction] 25.7 % Low 36.0-46.0 [facility] Comment on above: Order Comment: Speci men Type: ARTERIAL BLOOD SPECIMENOrdering Facility: [facility] Address: [address] [place] [address] Performed By: #### A LLBG ####[facility]ATORYCLIA [id number] [place] [address] [place] Hemoglobin (Bld) [Mass/Vol] 8.3 g/dL Low 11.5-15.5 [facility] Comment on above: Order Comment: Speci men Type: ARTERIAL BLOOD SPECIMENOrdering Facility: [facility] Address: [address] [place] [address] Performed By: #### A LLBG ####[facility]ATORYCLIA [id number] [place] [address] [place] Lactate [Moles/Vol] 1.0 mmol/L Normal 0.5-2.2 [facility] Comment on above: Order Comment: Speci men Type: ARTERIAL BLOOD SPECIMENOrdering Facility: [facility] Address: [address] [place] [address] Performed By: #### A LLBG ####[facility]ORATORYCLIA [id number] [address] [place] Methemoglobin (Bld) [Mass fraction] 1.1 % Normal 0.0-1.5 [facility] Comment on above: Order Comment: Speci men Type: ARTERIAL BLOOD SPECIMENOrdering Facility: [facility] Address: [address] [place] [address] Performed By: #### A LLBG ####[facility]ATORYCLIA [id number] [address] O2 THERAPY RA=Room Air Normal [facility] Comment on above: Order Comment: Speci men Type: ARTERIAL BLOOD SPECIMENOrdering Facility: [facility] Address: [address] [place] [address] Performed By: #### A LLBG ####[facility]ATORYCLIA [id number] [address] [place] Oxygen (Bld) [Partial pressure] 100 mm Hg High 85-95 [facility] Comment on above: Order Comment: Speci men Type: ARTERIAL BLOOD SPECIMENOrdering Facility: [facility] Address: [address] [place] [address] Performed By: #### A LLBG ####[facility]ATORYCLIA [id number] [address] [place] Oxyhemoglobin (BldA) [Mass fraction] 95 % Normal 95-98 [facility] Comment on above: Order Comment: Speci men Type: ARTERIAL BLOOD SPECIMENOrdering Facility: [facility] Address: [address] [place] [address] Performed By: #### A LLBG ####[facility]ATORYCLIA [id number] [place] [address] [place] pH (Bld) 7.46 [pH] High 7.35-7.45 [facility] Comment on above: Order Comment: Speci men Type: ARTERIAL BLOOD SPECIMENOrdering Facility: [facility] Address: [address] [place] [address] Performed By: #### A LLBG ####[facility]ORATORYCLIA [id number] [address] PO2 / FIO2 RATIO 476 mmHg Normal >300 [facility] Comment on above: Order Comment: Speci men Type: ARTERIAL BLOOD SPECIMENOrdering Facility: [facility] Address: [address] [place] [address] Performed By: #### A LLBG ####[facility]ATORYCLIA [id number] [address] [place] Potassium [Moles/Vol] 3.9 mmol/L Normal 3.5-5.0 [facility] Comment on above: Order Comment: Speci men Type: ARTERIAL BLOOD SPECIMENOrdering Facility: [facility] Address: [address] [place] [address] Performed By: #### A LLBG ####[facility]ATORYCLIA [id number] [address] [place] Sodium [Moles/Vol] 136 mmol/L Normal 136-144 [facility] Comment on above: Order Comment: Speci men Type: ARTERIAL BLOOD SPECIMENOrdering Facility: [facility] Address: [address] [place] [address] Performed By: #### A LLBG ####[facility]ATORYCLIA [id number] [place] [address] [place] Basic metabolic 2000 panelon 05-11-2024 Anion gap [Moles/Vol] 13 mmol/L Normal 8-15 [facility] Comment on above: Order Comment: Speci men Type: BLOOD SPECIMENOrdering Facility: [facility] Address: [address] [place] [address] Performed By: #### 2 4321-2, 75897-1, 2777-1 ####[facility]ORATORYCLIA [id number] [place] [address] [place] Calcium [Mass/Vol] 8.3 mg/dL Low 8.5-10.2 [facility] Comment on above: Order Comment: Speci men Type: BLOOD SPECIMENOrdering Facility: [facility] Address: [address] [place] [address] Performed By: #### 2 4321-2, , 2776-05 ####[facility]ATORYCLIA [id number] [place] [address] [place] Chloride [Moles/Vol] 104 mmol/L Normal 98-107 [facility] Comment on above: Order Comment: Speci men Type: BLOOD SPECIMENOrdering Facility: [facility] Address: [address] [place] [address] Performed By: #### 2 4321-2, , 2776-05 ####[facility]ATORYCLIA [id number] [place] [address] [place] CO2 [Moles/Vol] 21 mmol/L Low 22-30 [facility] Comment on above: Order Comment: Speci men Type: BLOOD SPECIMENOrdering Facility: [facility] Address: [address] [place] [address] Performed By: #### 2 4321-2, , 2776-05 ####[facility]ATORYCLIA [id number] [place] [address] [place] Creatinine [Mass/Vol] 0.54 mg/dL Low 0.58-0.96 [facility] Comment on above: Order Comment: Speci men Type: BLOOD SPECIMENOrdering Facility: [facility] Address: [address] [place] [address] Performed By: #### 2 4321-2, , 2776-05 ####[facility]ATORYCLIA [id number] [address] [place] Creatinine and Glomerular filtration rate.predicted panel (S/P/Bld) 92 mL/min/1.73m??? Normal >=60 [facility] Comment on above: Order Comment: Helen rg Type: BLOOD SPECIMENOrdering Facility: [facility] Address: [address] [place] [id number] Result Comment: Kaylene mated Glomerular Filtration Rate [...] actual GFR. Performed By: #### 2 4321-2, 92791-2, 2776-05 ####[facility]ATORYCLIA [id number] [place] [id number] [place] Glucose [Mass/Vol] 134 mg/dL High 74-99 [facility] Comment on above: Order Comment: Helen rg Type: BLOOD SPECIMENOrdering Facility: [facility] Address: [address] [place] [address] Result Comment: The [place] [employer] (ADA) provides guidance for cutoff [...] Standards of Medical Care in Diabetes 2016, [place] [employer]. Diabetes Care. 2016.39(Suppl 1). Performed By: #### 2 4321-2, , 2776-05 ####[facility]ATORYCLIA [id number] [place] [id number] [place] Potassium [Moles/Vol] 3.8 mmol/L Normal 3.7-5.1 [facility] Comment on above: Order Comment: Helen rg Type: BLOOD SPECIMENOrdering Facility: [facility] Address: [address] [place] [address] Performed By: #### 2 4321-2, 94642-0, 27771 ####[facility]ATORYCLIA [id number] [place] [address] [place] [facility] Sodium [Moles/Vol] 138 mmol/L Normal 136-144 [facility] Comment on above: Order Comment: Speci men Type: BLOOD SPECIMENOrdering Facility: [facility] Address: [address] [place] [address] Performed By: #### 2 4321-2, , 2776-05 ####[facility]ATORYCLIA [id number] [place] [id number] [place] Urea nitrogen [Mass/Vol] 9 mg/dL Normal 7-21 [facility] Comment on above: Order Comment: Speci men Type: BLOOD SPECIMENOrdering Facility: [facility] Address: [address] [place] [address] Performed By: #### 2 4321-2, , 27711-28 ####[facility]ATORYCLIA [id number] [address] [place] CASE MANAGEMon 05-11-2024 CASE MANAGEM Normal [facility] CBC panel Auto (Bld)on 05-11 Erythrocyte distribution width (RBC) [Ratio] 15.2 % High 11.5-15.0 [facility] Comment on above: Order Comment: Speci men Type: BLOOD SPECIMENOrdering Facility: [facility] Address: [address] [place] [address] Performed By: #### 5 8410-2 ####[facility]ATORYCLIA [id number] [address] STATES OF [facility] Hematocrit (Bld) [Volume fraction] 26.1 % Low 36.0-46.0 [facility] Comment on above: Order Comment: Speci men Type: BLOOD SPECIMENOrdering Facility: [facility] Address: [address] [place] [address] Performed By: #### 5 8410-2 ####[facility]ATORYCLIA [id number] [address] OF [facility] Hemoglobin (Bld) [Mass/Vol] 8.5 g/dL Low 11.5-15.5 [facility] Comment on above: Order Comment: Speci men Type: BLOOD SPECIMENOrdering Facility: [facility] Address: [address] [place] [address] Performed By: #### 5 8410-2 ####[facility]ATORYCLIA [id number] [address] MCH (RBC) [Entitic mass] 30.1 pg Normal 26.0-34.0 [facility] Comment on above: Order Comment: Speci men Type: BLOOD SPECIMENOrdering Facility: [facility] Address: [address] [place] [address] Performed By: #### 5 8410-2 ####[facility]ATORYCLIA [id number] [address] MCHC (RBC) [Mass/Vol] 32.6 g/dL Normal 30.5-36.0 [facility] Comment on above: Order Comment: Speci men Type: BLOOD SPECIMENOrdering Facility: [facility] Address: [address] [place] [address] Performed By: #### 5 8410-2 ####[facility]ATORYCLIA [id number] [address] MCV (RBC) [Entitic vol] 92.6 fL Normal 80.0-100.0 [facility] Comment on above: Order Comment: Speci men Type: BLOOD SPECIMENOrdering Facility: [facility] Address: [address] [place] [address] Performed By: #### 5 8410-2 ####[facility]ATORYCLIA [id number] [address] Nucleated RBC (Bld) [#/Vol] 0.03 10*3/uL High <0.01 [facility] Comment on above: Order Comment: Speci men Type: BLOOD SPECIMENOrdering Facility: [facility] Address: [address] [place] [address] Performed By: #### 5 8410-2 ####[facility]ATORYCLIA [id number] [place] [address] [place] Platelet mean volume (Bld) [Entitic vol] 10.8 fL Normal 9.0-12.7 [facility] Comment on above: Order Comment: Speci men Type: BLOOD SPECIMENOrdering Facility: [facility] Address: [address] [place] [address] Performed By: #### 5 8410-2 ####[facility]ATORYCLIA [id number] [address] OF [place] Platelets (Bld) [#/Vol] 316 10*3/uL Normal 150-400 [facility] Comment on above: Order Comment: Speci men Type: BLOOD SPECIMENOrdering Facility: [facility] Address: [address] [place] [address] Performed By: #### 5 8410-2 ####[facility]ATORYCLIA [id number] [place] [address] [place] RBC (Bld) [#/Vol] 2.82 10*6/uL Low 3.90-5.20 [facility] Comment on above: Order Comment: Speci men Type: BLOOD SPECIMENOrdering Facility: [facility] Address: [address] [place] [address] Performed By: #### 5 8410-2 ####[facility]ATORYCLIA [id number] [address] [place] WBC (Bld) [#/Vol] 12.73 10*3/uL High 3.70-11.00 [facility] Comment on above: Order Comment: Speci men Type: BLOOD SPECIMENOrdering Facility: [facility] Address: [address] [place] [address] Performed By: #### 5 8410-2 ####[facility]ATORYCLIA [id number] [address] [place] Calcium.ionized [Moles/Vol]o n 05-11-2024 Calcium.ionized (BldV) [Mass/Vol] 1.11 mmol/L Normal 1.08-1.30 [facility] Comment on above: Order Comment: Speci men Type: BLOOD SPECIMENOrdering Facility: [facility] Address: [address] [place] [address] Performed By: #### 1 995-0 ####[facility]ATORYCLIA [id number] [place] [id number] [place] [facility] Calcium.ionized adjusted to pH 7.4 (Bld) [Moles/Vol] 1.13 mmol/L Normal 1.08-1.30 [facility] Comment on above: Order Comment: Speci men Type: BLOOD SPECIMENOrdering Facility: [facility] Address: [address] [place] [address] Performed By: #### 1 995-0 ####[facility]ATORYCLIA [id number] [address] [place] Gas and Carbon monoxide pane l (BldV)on 05-11-2024 BASE DEFICIT, VENOUS >-1 Normal -2-0 [facility] Comment on above: Order Comment: Speci men Type: VENOUS BLOOD SPECIMENOrdering Facility: [facility] Address: [address] [place] [address] Performed By: #### 2 4344-4 ####[facility]ATORYCLIA [id number] [place] [id number] [place] Body temperature 97.7 [degF] Normal [facility] Comment on above: Order Comment: Speci men Type: VENOUS BLOOD SPECIMENOrdering Facility: [facility] Address: [address] [place] [address] Performed By: #### 2 4344-4 ####[facility]ATORYCLIA [id number] [address] [place] Calcium.ionized (BldV) [Mass/Vol] 1.13 mmol/L Normal 1.08-1.30 [facility] Comment on above: Order Comment: Speci men Type: VENOUS BLOOD SPECIMENOrdering Facility: [facility] Address: [address] [place] [address] Performed By: #### 2 4344-4 ####[facility]ATORYCLIA [id number] [place] [address] [facility] Calcium.ionized adjusted to pH 7.4 (BldA) [Moles/Vol] 1.16 mmol/L Normal 1.08-1.30 [facility] Comment on above: Order Comment: Speci men Type: VENOUS BLOOD SPECIMENOrdering Facility: [facility] Address: [address] [place] [address] Performed By: #### 2 4344-4 ####[facility]ORYCLIA [id number] [address] [place] Carboxyhemoglobin (BldV) [Mass fraction] 1.2 % Normal 0.0-2.0 [facility] Comment on above: Order Comment: Speci men Type: VENOUS BLOOD SPECIMENOrdering Facility: [facility] Address: [address] [place] [address] Result Comment: Carb oxyhemoglobin Reference Range for Smokers: 2.0-8.0% Performed By: #### 2 4344-4 ####[facility]ATORYCLIA [id number] [address] [place] Chloride [Moles/Vol] 106 mmol/L High 97-105 [facility] Comment on above: Order Comment: Speci men Type: VENOUS BLOOD SPECIMENOrdering Facility: [facility] Address: [address] [place] [address] Performed By: #### 2 4344-4 ####[facility] LABORATORYCLIA [id number] [place] [address] [place] CO2 (BldV) [Partial pressure] 34 mm[Hg] Low 42-55 [facility] Comment on above: Order Comment: Speci men Type: VENOUS BLOOD SPECIMENOrdering Facility: [facility] Address: [address] [place] [address] Performed By: #### 2 4344-4 ####[facility]ATORYCLIA [id number] [address] STATES OF [facility] CO2 adjusted to patient's actual temperature (BldV) [Partial pressure] 33 mmHg Low 42-55 [facility] Comment on above: Order Comment: Speci men Type: VENOUS BLOOD SPECIMENOrdering Facility: [facility] Address: [address] [place] [address] Performed By: #### 2 4344-4 ####[facility]ATORYCLIA [id number] [address] [place] Glucose [Mass/Vol] 158 mg/dL High 60-105 [facility] Comment on above: Order Comment: Speci men Type: VENOUS BLOOD SPECIMENOrdering Facility: [facility] Address: [address] [place] [address] Performed By: #### 2 4344-4 ####[facility]ATORYCLIA [id number] [address] [place] HCO3 (Bld) [Moles/Vol] 23 mmol/L Low 24-28 [facility] Comment on above: Order Comment: Speci men Type: VENOUS BLOOD SPECIMENOrdering Facility: [facility] Address: [address] [place] [address] Performed By: #### 2 4344-4 ####[facility]ATORYCLIA [id number] [address] [place] Hematocrit (Bld) [Volume fraction] 26.6 % Low 36.0-46.0 [facility] Comment on above: Order Comment: Speci men Type: VENOUS BLOOD SPECIMENOrdering Facility: [facility] Address: [address] [place] [address] Performed By: #### 2 4344-4 ####[facility]ATORYCLIA [id number] [address] [place] Hemoglobin (Bld) [Mass/Vol] 8.6 g/dL Low 11.5-15.5 [facility] Comment on above: Order Comment: Speci men Type: VENOUS BLOOD SPECIMENOrdering Facility: [facility] Address: [address] [place] [address] Performed By: #### 2 4344-4 ####[facility]ORYCLIA [id number] [place] [id number] [place] Lactate [Moles/Vol] 1.0 mmol/L Normal 0.5-2.2 [facility] Comment on above: Order Comment: Speci men Type: VENOUS BLOOD SPECIMENOrdering Facility: [facility] Address: [address] [place] [address] Performed By: #### 2 4344-4 ####[facility]ATORYCLIA [id number] [address] [place] Methemoglobin (Bld) [Mass fraction] 0.4 % Normal 0.0-1.5 [facility] Comment on above: Order Comment: Speci men Type: VENOUS BLOOD SPECIMENOrdering Facility: [facility] Address: [address] [place] [address] Performed By: #### 2 4344-4 ####[facility]ATORYCLIA [id number] [address] O2 THERAPY RA=Room Air Normal [facility] Comment on above: Order Comment: Speci men Type: VENOUS BLOOD SPECIMENOrdering Facility: [facility] Address: [address] [place] [address] Performed By: #### 2 4344-4 ####[facility]ATORYCLIA [id number] [address] OF [place] Oxygen (BldV) [Partial pressure] 76 mm[Hg] High 35-45 [facility] Comment on above: Order Comment: Speci men Type: VENOUS BLOOD SPECIMENOrdering Facility: [facility] Address: [address] [place] [address] Performed By: #### 2 4344-4 ####[facility]ATORYCLIA [id number] [address] OF [place] Oxygen adjusted to patient's actual temperature (BldV) [Partial pressure] 74 mmHg High 35-45 [facility] Comment on above: Order Comment: Speci men Type: VENOUS BLOOD SPECIMENOrdering Facility: [facility] Address: [address] [place] [address] Performed By: #### 2 4344-4 ####[facility]ATORYCLIA [id number] [address] [place] Oxygen saturation in Venous blood 93 % High 60-85 [facility] Comment on above: Order Comment: Speci men Type: VENOUS BLOOD SPECIMENOrdering Facility: [facility] Address: [address] [place] [address] Performed By: #### 2 4344-4 ####[facility]ORATORYCLIA [id number] [address] Oxyhemoglobin (BldV) [Mass fraction] 92 % High 60-85 [facility] Comment on above: Order Comment: Speci men Type: VENOUS BLOOD SPECIMENOrdering Facility: [facility] Address: [address] [place] [address] Performed By: #### 2 4344-4 ####[facility]ATORYCLIA [id number] [place] [address] [place] pH (BldV) 7.45 [pH] High 7.32-7.42 [facility] Comment on above: Order Comment: Speci men Type: VENOUS BLOOD SPECIMENOrdering Facility: [facility] Address: [address] [place] [address] Performed By: #### 2 4344-4 ####[facility]ATORYCLIA [id number] [address] [place] pH adjusted to patient's actual temperature (BldV) 7.46 High 7.32-7.42 [facility] Comment on above: Order Comment: Speci men Type: VENOUS BLOOD SPECIMENOrdering Facility: [facility] Address: [address] [place] [address] Performed By: #### 2 4344-4 ####[facility]ATORYCLIA [id number] [place] [address] [place] Potassium [Moles/Vol] 3.8 mmol/L Normal 3.5-5.0 [facility] Comment on above: Order Comment: Speci men Type: VENOUS BLOOD SPECIMENOrdering Facility: [facility] Address: [address] [place], [place] [address] Performed By: #### 2 4344-4 ####[facility]ATORYCLIA [id number] [place] [address] [place] Sodium [Moles/Vol] 136 mmol/L Normal 136-144 [facility] Comment on above: Order Comment: Speci men Type: VENOUS BLOOD SPECIMENOrdering Facility: [facility] Address: [address] [place] [address] Performed By: #### 2 4344-4 ####[facility]ATORYCLIA [id number] [address] [place] Magnesium SerPl-[facility] 05-11 Magnesium [Mass/Vol] 1.8 mg/dL Normal 1.7-2.3 [facility] Comment on above: Order Comment: Speci men Type: BLOOD SPECIMENOrdering Facility: [facility] Address: [address] [place] [address] Performed By: #### 2 4321-2, , 2777-1 ####[facility]ATORYCLIA [id number] [address] [place] NURSING PROGon 05-11-2024 NURSING PROG Normal [facility] Phosphate SerPl-ncon 05-11 Phosphate [Mass/Vol] 2.6 mg/dL Low 2.7-4.8 [facility] Comment on above: Order Comment: Speci men Type: BLOOD SPECIMENOrdering Facility: [facility] Address: [address] [place] [address] Performed By: #### 2 4321-2, 59932-9, 2777-1 ####[facility]ATORYCLIA [id number] [address] [place] THERAPY NTon 05-11-2024 THERAPY NT Normal [facility] XR ABDOMEN 1V SUPINEon 05-11 XR ABDOMEN 1V SUPINE Normal [facility] XR CHEST 1V FRONTALon 2023 XR CHEST 1V FRONTAL Normal [facility] Basic metabolic 2000 panelon 05-10-2024 Anion gap [Moles/Vol] 9 mmol/L Normal 8-15 [facility] Comment on above: Order Comment: Speci men Type: BLOOD SPECIMENOrdering Facility: [facility] Address: [address] [place] [address] Performed By: #### 2 4321-2, , 2776-05 ####[facility]ATORYCLIA [id number] [place] [address] [place] Calcium [Mass/Vol] 8.2 mg/dL Low 8.5-10.2 [facility] Comment on above: Order Comment: Speci men Type: BLOOD SPECIMENOrdering Facility: [facility] Address: [address] [place] [address] Performed By: #### 2 4321-2, , 2776-05 ####[facility]ATORYCLIA [id number] [place] [address] [place] Chloride [Moles/Vol] 103 mmol/L Normal 98-107 [facility] Comment on above: Order Comment: Speci men Type: BLOOD SPECIMENOrdering Facility: [facility] Address: [address] [place] [address] Performed By: #### 2 4321-2, , 2776-05 ####[facility]ATORYCLIA [id number] [place] [address] [place] CO2 [Moles/Vol] 22 mmol/L Normal 22-30 [facility] Comment on above: Order Comment: Speci men Type: BLOOD SPECIMENOrdering Facility: [facility] Address: [address] [place] [address] Performed By: #### 2 4321-2, , 2776-05 ####[facility]ATORYCLIA [id number] [place] [address] [place] Creatinine [Mass/Vol] 0.49 mg/dL Low 0.58-0.96 [facility] Comment on above: Order Comment: Helen rg Type: BLOOD SPECIMENOrdering Facility: [facility] Address: [address] [place] [address] Performed By: #### 2 4321-2, , 2776-05 ####[facility]ATORYCLIA [id number] [address] STATES OF [facility] Creatinine and Glomerular filtration rate.predicted panel (S/P/Bld) 94 mL/min/1.73m??? Normal >=60 [facility] Comment on above: Order Comment: Helen rg Type: BLOOD SPECIMENOrdering Facility: [facility] Address: [address] [place] [address] Result Comment: Kaylene mated Glomerular Filtration Rate [...] By: #### 2 4321-2, , 2776-05 ####[facility]ATORYCLIA [id number] [address] [place] Glucose [Mass/Vol] 143 mg/dL High 74-99 [facility] Comment on above: Order Comment: Helen rg Type: BLOOD SPECIMENOrdering Facility: [facility] Address: [address] [place] [address] Result Comment: The [place] Diabetes [employer] (ADA) provides guidance for cutoff [...] Standards of Medical Care in Diabetes 2016, [place] [employer]. Diabetes Care. 2016.39(Suppl 1). Performed By: #### 2 4321-2, , 2776-05 ####[facility]ATORYCLIA [id number] [place], [place] [address] [place] [address] [place] Potassium [Moles/Vol] 4.2 mmol/L Normal 3.7-5.1 [facility] Comment on above: Order Comment: Helen rg Type: BLOOD SPECIMENOrdering Facility: [facility] Address: [address] [place] [address] Performed By: #### 2 4321-2, , 2776-05 ####[facility]ATORYCLIA [id number] [address] STATES OF [facility] Sodium [Moles/Vol] 134 mmol/L Low 136-144 [facility] Comment on above: Order Comment: Helen rg Type: BLOOD SPECIMENOrdering Facility: [facility] Address: [address] [place] [address] Performed By: #### 2 4321-2, , 2776-05 ####[facility]ATORYCLIA [id number] [address] STATES [facility] Urea nitrogen [Mass/Vol] 12 mg/dL Normal 7-21 [facility] Comment on above: Order Comment: Helen rg Type: BLOOD SPECIMENOrdering Facility: [facility] Address: [address] [place] [address] Performed By: #### 2 4321-2, , 2776-05 ####[facility]ATORYCLIA [id number] [place] [id number] [place] CASE MANAGEMon 05-10-2024 CASE MANAGEM Normal [facility] CBC panel Auto (Bld)on 05-10 Erythrocyte distribution width (RBC) [Ratio] 15.6 % High 11.5-15.0 [facility] Comment on above: Order Comment: Helen rg Type: BLOOD SPECIMENOrdering Facility: [facility] Address: [address] [place] [address] Performed By: #### 5 8410-2 ####[facility]ATORYCLIA [id number] [address] Hematocrit (Bld) [Volume fraction] 24.7 % Low 36.0-46.0 [facility] Comment on above: Order Comment: Speci men Type: BLOOD SPECIMENOrdering Facility: [facility] Address: [address] [place] [address] Performed By: #### 5 8410-2 ####[facility]ATORYCLIA [id number] [address] OF [facility] Hemoglobin (Bld) [Mass/Vol] 7.8 g/dL Low 11.5-15.5 [facility] Comment on above: Order Comment: Speci men Type: BLOOD SPECIMENOrdering Facility: [facility] Address: [address] [place] [address] Performed By: #### 5 8410-2 ####[facility]ATORYCLIA [id number] [address] STATES OF [facility] MCH (RBC) [Entitic mass] 30.0 pg Normal 26.0-34.0 [facility] Comment on above: Order Comment: Speci men Type: BLOOD SPECIMENOrdering Facility: [facility] Address: [address] [place] [address] Performed By: #### 5 8410-2 ####[facility]ATORYCLIA [id number] [address] [place] MCHC (RBC) [Mass/Vol] 31.6 g/dL Normal 30.5-36.0 [facility] Comment on above: Order Comment: Speci men Type: BLOOD SPECIMENOrdering Facility: [facility] Address: [address] [place] [address] Performed By: #### 5 8410-2 ####[facility]ATORYCLIA [id number] [address] MCV (RBC) [Entitic vol] 95.0 fL Normal 80.0-100.0 [facility] Comment on above: Order Comment: Speci men Type: BLOOD SPECIMENOrdering Facility: [facility] Address: [address] [place] [address] Performed By: #### 5 8410-2 ####[facility]ATORYCLIA [id number] [address] STATES OF [facility] Nucleated RBC (Bld) [#/Vol] 0.02 10*3/uL High <0.01 [facility] Comment on above: Order Comment: Speci men Type: BLOOD SPECIMENOrdering Facility: [facility] Address: [address] [place] [address] Performed By: #### 5 8410-2 ####[facility]ATORYCLIA [id number] [address] [place] Platelet mean volume (Bld) [Entitic vol] 10.8 fL Normal 9.0-12.7 [facility] Comment on above: Order Comment: Speci men Type: BLOOD SPECIMENOrdering Facility: [facility] Address: [address] [place] [address] Performed By: #### 5 8410-2 ####[facility]ATORYCLIA [id number] [address] [place] Platelets (Bld) [#/Vol] 245 10*3/uL Normal 150-400 [facility] Comment on above: Order Comment: Speci men Type: BLOOD SPECIMENOrdering Facility: [facility] Address: [address] [place] [address] Performed By: #### 5 8410-2 ####[facility]ATORYCLIA [id number] [address] [place] RBC (Bld) [#/Vol] 2.60 10*6/uL Low 3.90-5.20 [facility] Comment on above: Order Comment: Speci men Type: BLOOD SPECIMENOrdering Facility: [facility] Address: [address] [place] [address] Performed By: #### 5 8410-2 ####[facility]ATORYCLIA [id number] [place], [place] [address] [place] [address] [place] WBC (Bld) [#/Vol] 10.48 10*3/uL Normal 3.70-11.00 [facility] Comment on above: Order Comment: Speci men Type: BLOOD SPECIMENOrdering Facility: [facility] Address: [address] [place] [address] Performed By: #### 5 8410-2 ####[facility]ATORYCLIA [id number] [place] [id number] [place] CT BRAIN WO IVCONon 05-10-[address] BRAIN WO IVCON Normal [facility] Calcium.ionized [Moles/Vol]o n 05-10-2024 Calcium.ionized (BldV) [Mass/Vol] 1.13 mmol/L Normal 1.08-1.30 [facility] Comment on above: Order Comment: Speci men Type: BLOOD SPECIMENOrdering Facility: [facility] Address: [address] [place] [address] Performed By: #### 1 995-0 ####[facility]ATORYCLIA [id number] [address] Calcium.ionized adjusted to pH 7.4 (Bld) [Moles/Vol] 1.14 mmol/L Normal 1.08-1.30 [facility] Comment on above: Order Comment: Speci men Type: BLOOD SPECIMENOrdering Facility: [facility] Address: [address] [place] [address] Performed By: #### 1 995-0 ####[facility]ORYCLIA [id number] [place] [address] [place] Magnesium SerPl-mCncon 05-10 Magnesium [Mass/Vol] 1.9 mg/dL Normal 1.7-2.3 [facility] Comment on above: Order Comment: Speci men Type: BLOOD SPECIMENOrdering Facility: [facility] Address: [address] [place] [address] Performed By: #### 2 4321-2, , 2776-05 ####[facility]ORYCLIA [id number] [address] OF [facility] NURSING PROGon 05-10-2024 NURSING PROG Normal [facility] Phosphate SerPl-mCncon 05-10 Phosphate [Mass/Vol] 2.8 mg/dL Normal 2.7-4.8 [facility] Comment on above: Order Comment: Speci men Type: BLOOD SPECIMENOrdering Facility: [facility] Address: [address] [place] [address] Performed By: #### 2 4321-2, , 2776-05 ####[facility]ORYCLIA [id number] [address] THERAPY NTon 05-10-2024 THERAPY NT Normal [facility] THERAPY NT Normal [facility] THERAPY NT Normal [facility] Basic metabolic 2000 panelon 05-09-2024 Anion gap [Moles/Vol] 12 mmol/L Normal 8-15 [facility] Comment on above: Order Comment: Speci men Type: BLOOD SPECIMENOrdering Facility: [facility] Address: [address] [place] [address] Performed By: #### 2 4321-2, , 2776-05 ####[facility]ORYCLIA [id number] [address] STATES OF [facility] Calcium [Mass/Vol] 7.9 mg/dL Low 8.5-10.2 [facility] Comment on above: Order Comment: Speci men Type: BLOOD SPECIMENOrdering Facility: [facility] Address: [address] [place] [address] Performed By: #### 2 4321-2, , 2776-05 ####[facility]ORYCLIA [id number] [address] [place] Chloride [Moles/Vol] 103 mmol/L Normal 98-107 [facility] Comment on above: Order Comment: Speci men Type: BLOOD SPECIMENOrdering Facility: [facility] Address: [address] [place], [place] [address] Performed By: #### 2 4321-2, , 2776-05 ####[facility] SERVICESCLIA [id number] [place] [id number] [place] CO2 [Moles/Vol] 21 mmol/L Low 22-30 [facility] Comment on above: Order Comment: Speci men Type: BLOOD SPECIMENOrdering Facility: [facility] Address: [address] [place] [address] Performed By: #### 2 4321-2, , 2776-05 ####[facility] [id number] [address] STATES OF [facility] Creatinine [Mass/Vol] 0.56 mg/dL Low 0.58-0.96 [facility] Comment on above: Order Comment: Speci men Type: BLOOD SPECIMENOrdering Facility: [facility] Address: [address] [place] [address] Performed By: #### 2 4321-2, , 2776-05 ####[facility]ITALIA [id number] [address] Creatinine and Glomerular filtration rate.predicted panel (S/P/Bld) 91 mL/min/1.73m??? Normal >=60 [facility] Comment on above: Order Comment: Speci men Type: BLOOD SPECIMENOrdering Facility: [facility] Address: [address] [place] [address] Result Comment: Kaylene mated Glomerular Filtration Rate [...] By: #### 2 4321-2, , 2776-05 ####[facility]ATORYCLIA [id number] [place] [address] [place] Glucose [Mass/Vol] 150 mg/dL High 74-99 [facility] Comment on above: Order Comment: Speci men Type: BLOOD SPECIMENOrdering Facility: [facility] Address: [address] [place] [address] Result Comment: The [place] Diabetes [employer] (ADA) provides guidance for cutoff [...] Standards of Medical Care in Diabetes 2016, [place] [employer]. Diabetes Care. 2016.39(Suppl 1). Performed By: #### 2 4321-2, , 2776-05 ####[facility]ATORYCLIA [id number] [place] [address] [place] Potassium [Moles/Vol] 4.3 mmol/L Normal 3.7-5.1 [facility] Comment on above: Order Comment: Speci men Type: BLOOD SPECIMENOrdering Facility: [facility] Address: [address] [place] [address] Performed By: #### 2 4321-2, , 2776-05 ####[facility]ATORYCLIA [id number] [place] [id number] [place] Sodium [Moles/Vol] 136 mmol/L Normal 136-144 [facility] Comment on above: Order Comment: Speci men Type: BLOOD SPECIMENOrdering Facility: [facility] Address: [address] [place] [address] Performed By: #### 2 4321-2, , 2776-05 ####[facility]ORYCLIA [id number] [place] [id number] [place] Urea nitrogen [Mass/Vol] 16 mg/dL Normal 7-21 [facility] Comment on above: Order Comment: Speci men Type: BLOOD SPECIMENOrdering Facility: [facility] Address: [address] [place] [address] Performed By: #### 2 4321-2, 61097-8, 2777-1 ####[facility]ORYCLIA [id number] [address] [place] CBC panel Auto (Bld)on 05-09 Erythrocyte distribution width (RBC) [Ratio] 16.1 % High 11.5-15.0 [facility] Comment on above: Order Comment: Speci men Type: BLOOD SPECIMENOrdering Facility: [facility] Address: [address] [place] [address] Performed By: #### 5 8410-2 ####[facility]ATORYCLIA [id number] [address] [place] Hematocrit (Bld) [Volume fraction] 20.4 % Low 36.0-46.0 [facility] Comment on above: Order Comment: Speci men Type: BLOOD SPECIMENOrdering Facility: [facility] Address: [address] [place] [address] Performed By: #### 5 8410-2 ####[facility]ORYCLIA [id number] [address] [place] Hemoglobin (Bld) [Mass/Vol] 6.4 g/dL Low 11.5-15.5 [facility] Comment on above: Order Comment: Speci men Type: BLOOD SPECIMENOrdering Facility: [facility] Address: [address] [place] [address] Performed By: #### 5 8410-2 ####[facility]ATORYCLIA [id number] [address] STATES [facility] MCH (RBC) [Entitic mass] 29.9 pg Normal 26.0-34.0 [facility] Comment on above: Order Comment: Speci men Type: BLOOD SPECIMENOrdering Facility: [facility] Address: [address] [place] [address] Performed By: #### 5 8410-2 ####[facility] LABORATORYCLIA [id number] [address] MCHC (RBC) [Mass/Vol] 31.4 g/dL Normal 30.5-36.0 [facility] Comment on above: Order Comment: Speci men Type: BLOOD SPECIMENOrdering Facility: [facility] Address: [address] [place] [address] Performed By: #### 5 8410-2 ####[facility] LABORATORYCLIA [id number] [address] MCV (RBC) [Entitic vol] 95.3 fL Normal 80.0-100.0 [facility] Comment on above: Order Comment: Speci men Type: BLOOD SPECIMENOrdering Facility: [facility] Address: [address] [place] [address] Performed By: #### 5 8410-2 ####[facility] LABORATORYCLIA [id number] [address] Nucleated RBC (Bld) [#/Vol] 0.02 10*3/uL High <0.01 [facility] Comment on above: Order Comment: Speci men Type: BLOOD SPECIMENOrdering Facility: [facility] Address: [address] [place] [address] Performed By: #### 5 8410-2 ####[facility]ATORYCLIA [id number] [address] Platelet mean volume (Bld) [Entitic vol] 11.0 fL Normal 9.0-12.7 [facility] Comment on above: Order Comment: Speci men Type: BLOOD SPECIMENOrdering Facility: [facility] Address: [address] [place] [address] Performed By: #### 5 8410-2 ####[facility]ATORYCLIA [id number] [address] [place] Platelets (Bld) [#/Vol] 219 10*3/uL Normal 150-400 [facility] Comment on above: Order Comment: Speci men Type: BLOOD SPECIMENOrdering Facility: [facility] Address: [address] [place] [address] Performed By: #### 5 8410-2 ####[facility]ATORYCLIA [id number] [place] [address] [place] RBC (Bld) [#/Vol] 2.14 10*6/uL Low 3.90-5.20 [facility] Comment on above: Order Comment: Speci men Type: BLOOD SPECIMENOrdering Facility: [facility] Address: [address] [place] [address] Performed By: #### 5 8410-2 ####[facility]ATORYCLIA [id number] [address] STATES OF [facility] WBC (Bld) [#/Vol] 10.06 10*3/uL Normal 3.70-11.00 [facility] Comment on above: Order Comment: Speci men Type: BLOOD SPECIMENOrdering Facility: [facility] Address: [address] [place] [address] Performed By: #### 5 8410-2 ####[facility]ATORYCLIA [id number] [address] Calcium.ionized [Moles/Vol]o n 05-09-2024 Calcium.ionized (BldV) [Mass/Vol] 1.20 mmol/L Normal 1.08-1.30 [facility] Comment on above: Order Comment: Speci men Type: BLOOD SPECIMENOrdering Facility: [facility] Address: [address] [place] [address] Performed By: #### 1 995-0 ####[facility]ATORYCLIA [id number] [address] Calcium.ionized adjusted to pH 7.4 (Bld) [Moles/Vol] 1.17 mmol/L Normal 1.08-1.30 [facility] Comment on above: Order Comment: Speci men Type: BLOOD SPECIMENOrdering Facility: [facility] Address: [address] [place] [address] Performed By: #### 1 995-0 ####[facility]ATORYCLIA [id number] [address] Hematocrit Auto (Bld) [Volum e fraction]on 05-09-2024 Hematocrit (Bld) [Volume fraction] 20.4 % Low 36.0-46.0 [facility] Comment on above: Order Comment: Speci men Type: BLOOD SPECIMENOrdering Facility: [facility] Address: [address] [place] [address] Performed By: #### 4 544-3, 718-7 ####[facility]ATORYCLIA [id number] [address] STATES OF [facility] Hgb Bld-mCncon 05-09-2024 Hemoglobin (Bld) [Mass/Vol] 7.4 g/dL Low 11.5-15.5 [facility] Comment on above: Order Comment: Speci men Type: BLOOD SPECIMENOrdering Facility: [facility] Address: [address] [place] [address] Performed By: #### 7 18-7 ####[facility] SERVICESCLIA [id number] [address] STATES OF [facility] Hemoglobin (Bld) [Mass/Vol] 6.5 g/dL Low 11.5-15.5 [facility] Comment on above: Order Comment: Speci men Type: BLOOD SPECIMENOrdering Facility: [facility] Address: [address] [place] [address] Performed By: #### 4 544-3 718-7 ####[facility]ATORYCLIA [id number] [address] [place] Magnesium SerPl-mCncon 05-09 Magnesium [Mass/Vol] 2.0 mg/dL Normal 1.7-2.3 [facility] Comment on above: Order Comment: Speci men Type: BLOOD SPECIMENOrdering Facility: [facility] Address: [address] [place] [address] Performed By: #### 2 4321-2, 77942-7, 2777-1 ####[facility]ATORYCLIA [id number] [place] [address] [place] PT EDon 05-09-2024 PT ED Normal [facility] Phosphate SerPl-mCncon 05-09 Phosphate [Mass/Vol] 2.9 mg/dL Normal 2.7-4.8 [facility] Comment on above: Order Comment: Speci men Type: BLOOD SPECIMENOrdering Facility: [facility] Address: [address] [place] [address] Performed By: #### 2 4321-2, , 2777 ####[facility]ATORYCLIA [id number] [address] [place] THERAPY NTon 05-09-2024 THERAPY NT Normal [facility] THERAPY NT Normal [facility] Basic metabolic 2000 panelon 05-08-2024 Anion gap [Moles/Vol] 9 mmol/L Normal 8-15 [facility] Comment on above: Order Comment: Speci men Type: BLOOD SPECIMENOrdering Facility: [facility] Address: [address] [place] [address] Performed By: #### 2 4321-2 ####[facility]ATORYCLIA [id number] [place] [address] [place] Calcium [Mass/Vol] 8.1 mg/dL Low 8.5-10.2 [facility] Comment on above: Order Comment: Speci men Type: BLOOD SPECIMENOrdering Facility: [facility] Address: [address] [place] [address] Performed By: #### 2 4321-2 ####[facility]ATORYCLIA [id number] [place] [address] [place] Chloride [Moles/Vol] 110 mmol/L High 98-107 [facility] Comment on above: Order Comment: Speci men Type: BLOOD SPECIMENOrdering Facility: [facility] Address: [address] [place] [address] Performed By: #### 2 4321-2 ####[facility]ATORYCLIA [id number] [address] STATES OF [facility] CO2 [Moles/Vol] 21 mmol/L Low 22-30 [facility] Comment on above: Order Comment: Speci men Type: BLOOD SPECIMENOrdering Facility: [facility] Address: [address] [place] [address] Performed By: #### 2 4321-2 ####[facility]ATORYCLIA [id number] [address] STATES OF [facility] Creatinine [Mass/Vol] 0.65 mg/dL Normal 0.58-0.96 [facility] Comment on above: Order Comment: Speci men Type: BLOOD SPECIMENOrdering Facility: [facility] Address: [address] [place] [address] Performed By: #### 2 4321-2 ####[facility] SERVICESCLIA [id number] [address] Creatinine and Glomerular filtration rate.predicted panel (S/P/Bld) 88 mL/min/1.73m??? Normal >=60 [facility] Comment on above: Order Comment: Speci men Type: BLOOD SPECIMENOrdering Facility: [facility] Address: [address] [place] [address] Result Comment: Kaylene mated Glomerular Filtration Rate [...] GFR. Performed By: #### 2 4321-2 ####[facility]ATORYCLIA [id number] [address] Glucose [Mass/Vol] 168 mg/dL High 74-99 [facility] Comment on above: Order Comment: Speci men Type: BLOOD SPECIMENOrdering Facility: [facility] Address: [address] [place] [address] Result Comment: The [place] Diabetes [employer] (ADA) provides guidance for cutoff [...] Standards of Medical Care in Diabetes 2016, [place] [employer]. Diabetes Care. 2016.39(Suppl 1). Performed By: #### 2 4321-2 ####[facility]ATORYCLIA [id number] [place] [address] [place] Potassium [Moles/Vol] 5.1 mmol/L Normal 3.7-5.1 [facility] Comment on above: Order Comment: Speci men Type: BLOOD SPECIMENOrdering Facility: [facility] Address: [address] [place] [address] Performed By: #### 2 4321-2 ####[facility]ATORYCLIA [id number] [place] [address] [place] Sodium [Moles/Vol] 140 mmol/L Normal 136-144 [facility] Comment on above: Order Comment: Speci men Type: BLOOD SPECIMENOrdering Facility: [facility] Address: [address] [place] [address] Performed By: #### 2 4321-2 ####[facility]ATORYCLIA [id number] [place] [address] [place] Urea nitrogen [Mass/Vol] 18 mg/dL Normal 7-21 [facility] Comment on above: Order Comment: Speci men Type: BLOOD SPECIMENOrdering Facility: [facility] Address: [address] [place] [id number] Performed By: #### 2 4321-2 ####[facility]ATORYCLIA [id number] [place] [address] [place] Anion gap [Moles/Vol] 8 mmol/L Normal 8-15 [facility] Comment on above: Order Comment: Speci men Type: BLOOD SPECIMENOrdering Facility: [facility] Address: [address] [place] [address] Performed By: #### 2 4321-2 ####[facility]ORATORYCLIA [id number] [place] [address] [place] Calcium [Mass/Vol] 8.4 mg/dL Low 8.5-10.2 [facility] Comment on above: Order Comment: Speci men Type: BLOOD SPECIMENOrdering Facility: [facility] Address: [address] [place] [address] Performed By: #### 2 4321-2 ####[facility]ATORYCLIA [id number] [place] [address] [place] Chloride [Moles/Vol] 109 mmol/L High 98-107 [facility] Comment on above: Order Comment: Speci men Type: BLOOD SPECIMENOrdering Facility: [facility] Address: [address] [place] [address] Performed By: #### 2 4321-2 ####[facility] LABORATORYCLIA [id number] [place] [address] [place] CO2 [Moles/Vol] 20 mmol/L Low 22-30 [facility] Comment on above: Order Comment: Speci men Type: BLOOD SPECIMENOrdering Facility: [facility] Address: [address] [place] [address] Performed By: #### 2 4321-2 ####[facility] LABORATORYCLIA [id number] [place] [address] [place] Creatinine [Mass/Vol] 0.74 mg/dL Normal 0.58-0.96 [facility] Comment on above: Order Comment: Speci men Type: BLOOD SPECIMENOrdering Facility: [facility] Address: [address] [place] [address] Performed By: #### 2 4321-2 ####[facility] SERVICESCLIA [id number] [place] [address] [place] Creatinine and Glomerular filtration rate.predicted panel (S/P/Bld) 81 mL/min/1.73m??? Normal >=60 [facility] Comment on above: Order Comment: Helen rg Type: BLOOD SPECIMENOrdering Facility: [facility] Address: [address] [place] [address] Result Comment: Kaylene mated Glomerular Filtration Rate [...] actual GFR. Performed By: #### 2 4321-2 ####[facility]OSPITALIA [id number] [place] [address] [place] Glucose [Mass/Vol] 168 mg/dL High 74-99 [facility] Comment on above: Order Comment: Helen rg Type: BLOOD SPECIMENOrdering Facility: [facility] Address: [address] [place] [address] Result Comment: The [place] Diabetes [employer] (ADA) provides guidance for cutoff [...] Standards of Medical Care in Diabetes 2016, [place] [employer]. Diabetes Care. 2016.39(Suppl 1). Performed By: #### 2 4321-2 ####[facility]ATORYCLIA [id number] [place] [id number] [place] Potassium [Moles/Vol] 5.2 mmol/L High 3.7-5.1 [facility] Comment on above: Order Comment: Speci men Type: BLOOD SPECIMENOrdering Facility: [facility] Address: [address] [place] [address] Performed By: #### 2 4321-2 ####[facility] LABORATORYCLIA [id number] [place] [address] [place] Sodium [Moles/Vol] 137 mmol/L Normal 136-144 [facility] Comment on above: Order Comment: Speci men Type: BLOOD SPECIMENOrdering Facility: [facility] Address: [address] [place] [address] Performed By: #### 2 4321-2 ####[facility]ORYCLIA [id number] [address] [place] Urea nitrogen [Mass/Vol] 17 mg/dL Normal 7-21 [facility] Comment on above: Order Comment: Speci men Type: BLOOD SPECIMENOrdering Facility: [facility] Address: [address] [place] [address] Performed By: #### 2 4321-2 ####[facility]ORYCLIA [id number] [address] [place] Anion gap [Moles/Vol] 8 mmol/L Normal 8-15 [facility] Comment on above: Order Comment: Speci men Type: BLOOD SPECIMENOrdering Facility: [facility] Address: [address] [place] [address] Performed By: #### 2 4321-2, 16997-5 ####[facility]ORATORYCLIA [id number] [place] [address] [place] Calcium [Mass/Vol] 8.6 mg/dL Normal 8.5-10.2 [facility] Comment on above: Order Comment: Speci men Type: BLOOD SPECIMENOrdering Facility: [facility] Address: [address] [place] [address] Performed By: #### 2 4321-2, 29852-5 ####[facility]ORATORYCLIA [id number] [place] [address] Chloride [Moles/Vol] 109 mmol/L High 98-107 [facility] Comment on above: Order Comment: Speci men Type: BLOOD SPECIMENOrdering Facility: [facility] Address: [address] [place] [address] Performed By: #### 2 4321-2, 87626-5 ####[facility]ORYCLIA [id number] [address] OF [facility] CO2 [Moles/Vol] 20 mmol/L Low 22-30 [facility] Comment on above: Order Comment: Speci men Type: BLOOD SPECIMENOrdering Facility: [facility] Address: [address] [place] [address] Performed By: #### 2 4321-2, 31038-0 ####[facility]ATORYCLIA [id number] [address] Creatinine [Mass/Vol] 0.72 mg/dL Normal 0.58-0.96 [facility] Comment on above: Order Comment: Speci men Type: BLOOD SPECIMENOrdering Facility: [facility] Address: [address] [place] [address] Performed By: #### 2 4321-2, 30067-4 ####[facility]ORYCLIA [id number] [address] Creatinine and Glomerular filtration rate.predicted panel (S/P/Bld) 84 mL/min/1.73m??? Normal >=60 [facility] Comment on above: Order Comment: Speci men Type: BLOOD SPECIMENOrdering Facility: [facility] Address: [address] [place] [address] Result Comment: Kaylene mated Glomerular Filtration Rate [...] actual GFR. Performed By: #### 2 4321-2, 86030-5 ####[facility]ATORYCLIA [id number] [place] [address] [place] Glucose [Mass/Vol] 152 mg/dL High 74-99 [facility] Comment on above: Order Comment: Speci men Type: BLOOD SPECIMENOrdering Facility: [facility] Address: [address] [place] [address] Result Comment: The [place] Diabetes Association (ADA) provides guidance for cutoff [...] Standards of Medical Care in Diabetes 2016, [place] [employer]. Diabetes Care. 2016.39(Suppl 1). Performed By: #### 2 4321-2, 16147-3 ####[facility]ATORYCLIA [id number] [place] [address] [place] Potassium [Moles/Vol] 5.2 mmol/L High 3.7-5.1 [facility] Comment on above: Order Comment: Speci men Type: BLOOD SPECIMENOrdering Facility: [facility] Address: [address] [place] [address] Performed By: #### 2 4321-2, 27726-4 ####[facility]ATORYCLIA [id number] [place] [address] [place] Sodium [Moles/Vol] 137 mmol/L Normal 136-144 [facility] Comment on above: Order Comment: Speci men Type: BLOOD SPECIMENOrdering Facility: [facility] Address: [address] [place] [address] Performed By: #### 2 4321-2, 15680-6 ####[facility]ATORYCLIA [id number] [place] [address] [place] Urea nitrogen [Mass/Vol] 18 mg/dL Normal 7-21 [facility] Comment on above: Order Comment: Speci men Type: BLOOD SPECIMENOrdering Facility: [facility] Address: [address] [place] [address] Performed By: #### 2 4321-2, 73740-9 ####[facility] LABORATORYCLIA [id number] [place] [address] [place] Anion gap [Moles/Vol] 9 mmol/L Normal 8-15 [facility] Comment on above: Order Comment: Speci men Type: BLOOD SPECIMENOrdering Facility: [facility] Address: [address] [place] [address] Performed By: #### 2 4321-2 ####[facility]ORYCLIA [id number] [place] [address] [place] Calcium [Mass/Vol] 8.5 mg/dL Normal 8.5-10.2 [facility] Comment on above: Order Comment: Speci men Type: BLOOD SPECIMENOrdering Facility: [facility] Address: [address] [place] [address] Performed By: #### 2 4321-2 ####[facility]ORYCLIA [id number] [place] [address] [place] Chloride [Moles/Vol] 104 mmol/L Normal 98-107 [facility] Comment on above: Order Comment: Speci men Type: BLOOD SPECIMENOrdering Facility: [facility] Address: [address] [place] [address] Performed By: #### 2 4321-2 ####[facility] LABORATORYCLIA [id number] [place] [address] [place] CO2 [Moles/Vol] 19 mmol/L Low 22-30 [facility] Comment on above: Order Comment: Speci men Type: BLOOD SPECIMENOrdering Facility: [facility] Address: [address] [place] [address] Performed By: #### 2 4321-2 ####[facility]ORATORYCLIA [id number] [address] STATES OF [facility] Creatinine [Mass/Vol] 0.64 mg/dL Normal 0.58-0.96 [facility] Comment on above: Order Comment: Helen rg Type: BLOOD SPECIMENOrdering Facility: [facility] Address: [address] [place] [address] Performed By: #### 2 4321-2 ####[facility]PITALIA [id number] [address] Creatinine and Glomerular filtration rate.predicted panel (S/P/Bld) 88 mL/min/1.73m??? Normal >=60 [facility] Comment on above: Order Comment: Helen rg Type: BLOOD SPECIMENOrdering Facility: [facility] Address: [address] [place] [address] Result Comment: Kaylene mated Glomerular Filtration Rate [...] GFR. Performed By: #### 2 4321-2 ####[facility]ORATORYIA [id number] [address] OF [facility] Glucose [Mass/Vol] 251 mg/dL High 74-99 [facility] Comment on above: Order Comment: Helen rg Type: BLOOD SPECIMENOrdering Facility: [facility] Address: [address] [place] [address] Result Comment: The [place] Diabetes Association (ADA) provides guidance for cutoff [...] Standards of Medical Care in Diabetes 2016, [place] [employer]. Diabetes Care. 2016.39(Suppl 1). Performed By: #### 2 4321-2 ####[facility] LABORATORYCLIA [id number] [address] STATES OF [facility] Potassium [Moles/Vol] 5.7 mmol/L High 3.7-5.1 [facility] Comment on above: Order Comment: Speci men Type: BLOOD SPECIMENOrdering Facility: [facility] Address: [address] [place] [address] Performed By: #### 2 4321-2 ####[facility]ATORYCLIA [id number] [address] STATES [facility] Sodium [Moles/Vol] 132 mmol/L Low 136-144 [facility] Comment on above: Order Comment: Speci men Type: BLOOD SPECIMENOrdering Facility: [facility] Address: [address] [place] [address] Performed By: #### 2 1-2 ####[facility]ORYCLIA [id number] [address] STATES [facility] Urea nitrogen [Mass/Vol] 19 mg/dL Normal 7-21 [facility] Comment on above: Order Comment: Speci men Type: BLOOD SPECIMENOrdering Facility: [facility] Address: [address] [place] [address] Performed By: #### 2 4321-2 ####[facility]ORYCLIA [id number] [address] [place] Anion gap [Moles/Vol] 12 mmol/L Normal 8-15 [facility] Comment on above: Order Comment: Speci men Type: BLOOD SPECIMENOrdering Facility: [facility] Address: [address] [place] [address] Performed By: #### 2 4321-2, 2777-1, 27320-0 ####[facility]ORYCLIA [id number] [place] [address] [place] Calcium [Mass/Vol] 8.4 mg/dL Low 8.5-10.2 [facility] Comment on above: Order Comment: Speci men Type: BLOOD SPECIMENOrdering Facility: [facility] Address: [address] [place] [address] Performed By: #### 2 4321-2, 2776-05, ####[facility]ORYCLIA [id number] [place] [address] [place] Chloride [Moles/Vol] 105 mmol/L Normal 98-107 [facility] Comment on above: Order Comment: Speci men Type: BLOOD SPECIMENOrdering Facility: [facility] Address: [address] [place] [address] Performed By: #### 2 4321-2, 2776-05, ####[facility]ORYCLIA [id number] [address] [place] CO2 [Moles/Vol] 16 mmol/L Low 22-30 [facility] Comment on above: Order Comment: Speci men Type: BLOOD SPECIMENOrdering Facility: [facility] Address: [address] [place] [address] Performed By: #### 2 4321-2, 2776-05, ####[facility]ORYCLIA [id number] [address] [place] Creatinine [Mass/Vol] 0.70 mg/dL Normal 0.58-0.96 [facility] Comment on above: Order Comment: Speci men Type: BLOOD SPECIMENOrdering Facility: [facility] Address: [address] [place] [address] Performed By: #### 2 4321-2, 2776-05, ####[facility]ORYCLIA [id number] [address] Creatinine and Glomerular filtration rate.predicted panel (S/P/Bld) 86 mL/min/1.73m??? Normal >=60 [facility] Comment on above: Order Comment: Speci men Type: BLOOD SPECIMENOrdering Facility: [facility] Address: [address] [place] [address] Result Comment: Kaylene mated Glomerular Filtration Rate [...] GFR. Performed By: #### 2 4321-2, 2777-1, ####[facility]ORYCLIA [id number] [place] [address] [place] Glucose [Mass/Vol] 247 mg/dL High 74-99 [facility] Comment on above: Order Comment: Helen rg Type: BLOOD SPECIMENOrdering Facility: [facility] Address: [address] [place] [address] Result Comment: The [place] Diabetes [employer] (ADA) provides guidance for cutoff [...] Standards of Medical Care in Diabetes 2016, [place] [employer]. Diabetes Care. 2016.39(Suppl 1). Performed By: #### 2 4321-2, 2777-1, ####[facility]ORYCLIA [id number] [place] [id number] [place] Potassium [Moles/Vol] 6.2 mmol/L Critically high 3.7-5.1 [facility] Comment on above: Order Comment: Helen rg Type: BLOOD SPECIMENOrdering Facility: [facility] Address: [address] [place] [address] Performed By: #### 2 4321-2, 27711-28, ####[facility]ATORYCLIA [id number] [place] [address] [place] Sodium [Moles/Vol] 133 mmol/L Low 136-144 [facility] Comment on above: Order Comment: Speci men Type: BLOOD SPECIMENOrdering Facility: [facility] Address: [address] [place] [address] Performed By: #### 2 4321-2, 2776-05, ####[facility]ORYCLIA [id number] [place], [place] [address] [place] Urea nitrogen [Mass/Vol] 19 mg/dL Normal 7-21 [facility] Comment on above: Order Comment: Speci men Type: BLOOD SPECIMENOrdering Facility: [facility] Address: [address] [place] [address] Performed By: #### 2 4321-2, 2776-05, ####[facility]ATORYCLIA [id number] [address] [place] CASE MGT INIT ASSESon 2023 CASE MGT INIT ASSES Normal [facility] CBC panel Auto (Bld)on 05-08 Erythrocyte distribution width (RBC) [Ratio] 16.1 % High 11.5-15.0 [facility] Comment on above: Order Comment: Speci men Type: BLOOD SPECIMENOrdering Facility: [facility] Address: [address] [place] [address] Performed By: #### 5 8410-2 ####[facility]ATORYCLIA [id number] [place] [id number] [place] Hematocrit (Bld) [Volume fraction] 25.6 % Low 36.0-46.0 [facility] Comment on above: Order Comment: Speci men Type: BLOOD SPECIMENOrdering Facility: [facility] Address: [address] [place] [address] Performed By: #### 5 8410-2 ####[facility]ATORYCLIA [id number] [address] STATES OF [facility] Hemoglobin (Bld) [Mass/Vol] 8.1 g/dL Low 11.5-15.5 [facility] Comment on above: Order Comment: Speci men Type: BLOOD SPECIMENOrdering Facility: [facility] Address: [address] [place] [address] Performed By: #### 5 8410-2 ####[facility]ATORYCLIA [id number] [address] MCH (RBC) [Entitic mass] 29.9 pg Normal 26.0-34.0 [facility] Comment on above: Order Comment: Speci men Type: BLOOD SPECIMENOrdering Facility: [facility] Address: [address] [place] [address] Performed By: #### 5 8410-2 ####[facility]ATORYCLIA [id number] [address] MCHC (RBC) [Mass/Vol] 31.6 g/dL Normal 30.5-36.0 [facility] Comment on above: Order Comment: Speci men Type: BLOOD SPECIMENOrdering Facility: [facility] Address: [address] [place] [address] Performed By: #### 5 8410-2 ####[facility]ATORYCLIA [id number] [address] OF [facility] MCV (RBC) [Entitic vol] 94.5 fL Normal 80.0-100.0 [facility] Comment on above: Order Comment: Speci men Type: BLOOD SPECIMENOrdering Facility: [facility] Address: [address] [place] [address] Performed By: #### 5 8410-2 ####[facility]ATORYCLIA [id number] [address] Nucleated RBC (Bld) [#/Vol] 0.02 10*3/uL High <0.01 [facility] Comment on above: Order Comment: Speci men Type: BLOOD SPECIMENOrdering Facility: [facility] Address: [address] [place] [address] Performed By: #### 5 8410-2 ####[facility]ATORYCLIA [id number] [address] STATES [facility] Platelet mean volume (Bld) [Entitic vol] 10.7 fL Normal 9.0-12.7 [facility] Comment on above: Order Comment: Speci men Type: BLOOD SPECIMENOrdering Facility: [facility] Address: [address] [place] [address] Performed By: #### 5 8410-2 ####[facility]ORYCLIA [id number] [address] OF [place] Platelets (Bld) [#/Vol] 266 10*3/uL Normal 150-400 [facility] Comment on above: Order Comment: Speci men Type: BLOOD SPECIMENOrdering Facility: [facility] Address: [address] [place] [address] Performed By: #### 5 8410-2 ####[facility]ORYCLIA [id number] [address] [place] RBC (Bld) [#/Vol] 2.71 10*6/uL Low 3.90-5.20 [facility] Comment on above: Order Comment: Speci men Type: BLOOD SPECIMENOrdering Facility: [facility] Address: [address] [place] [address] Performed By: #### 5 8410-2 ####[facility]ATORYCLIA [id number] [address] [place] WBC (Bld) [#/Vol] 14.54 10*3/uL High 3.70-11.00 [facility] Comment on above: Order Comment: Speci men Type: BLOOD SPECIMENOrdering Facility: [facility] Address: [address] [place] [address] Performed By: #### 5 8410-2 ####[facility]ATORYCLIA [id number] [address] CONSULT PROGon 12-09-2024 CONSULT PROG Normal [facility] Calcium.ionized [Moles/Vol]o n 05-08-2024 Calcium.ionized (BldV) [Mass/Vol] 1.23 mmol/L Normal 1.08-1.30 [facility] Comment on above: Order Comment: Speci men Type: BLOOD SPECIMENOrdering Facility: [facility] Address: [address] [place] [address] Performed By: #### 1 995-0 ####[facility]ATORYCLIA [id number] [address] Calcium.ionized adjusted to pH 7.4 (Bld) [Moles/Vol] 1.17 mmol/L Normal 1.08-1.30 [facility] Comment on above: Order Comment: Speci men Type: BLOOD SPECIMENOrdering Facility: [facility] Address: [address] [place] [address] Performed By: #### 1 995-0 ####[facility]ATORYCLIA [id number] [address] [place] ECG COMPLETEon 05-08-2024 ECG COMPLETE Normal [facility] Magnesium [Mass/Vol] 2.2 mg/dL Normal 1.7-2.3 [facility] Comment on above: Order Comment: Speci men Type: BLOOD SPECIMENOrdering Facility: [facility] Address: [address] [place] [address] Performed By: #### 2 4321-2, 2777-1, 31139-6 ####[facility]ORYCLIA [id number] [address] [place] NURSING PROGon 05-08-2024 NURSING PROG Normal [facility] Phosphate SerPl-mCncon 05-08 Phosphate [Mass/Vol] 3.7 mg/dL Normal 2.7-4.8 [facility] Comment on above: Order Comment: Speci men Type: BLOOD SPECIMENOrdering Facility: [facility] Address: [address] [place], [place] [id number] Performed By: #### 2 4321-2, 2777-1, 14144-7 ####[facility]ATORYCLIA [id number] [address] [place] Procalcitonin SerPl-mCncon 1 07-09-2023 Procalcitonin [Mass/Vol] 0.22 ng/mL High <0.09 [facility] Comment on above: Order Comment: Speci men Type: BLOOD SPECIMENOrdering Facility: [facility] Address: [address] [place] [address] Result Comment: For a guided interpretation of test results, please visit the Change in Procalcitonin Calculator, [email or web address]. Performed By: #### 2 4321-2, 03176-5 ####[facility]ATORYCLIA [id number] [address] [place] THERAPY NTon 05-08-2024 THERAPY NT Normal [facility] THERAPY NT Normal [facility] XR CHEST 1V FRONTALon 2023 XR CHEST 1V FRONTAL Normal [facility] ANES POSTPROC EVALon 024 ANES POSTPROC EVAL Normal [facility] ANES PRE-OPon 05-07-2024 ANES PRE-OP Normal [facility] BRIEF OP NOTon 05-07-2024 BRIEF OP NOT Normal [facility] Basic metabolic 2000 panelon 05-07-2024 Anion gap [Moles/Vol] 8 mmol/L Normal 8-15 [facility] Comment on above: Order Comment: Speci men Type: BLOOD SPECIMENOrdering Facility: [facility] Address: [address] [place] [id number] Performed By: #### 2 4321-2 ####[facility]ATORYCLIA [id number] [address] [place] Calcium [Mass/Vol] 8.2 mg/dL Low 8.5-10.2 [facility] Comment on above: Order Comment: Speci men Type: BLOOD SPECIMENOrdering Facility: [facility] Address: [address] [place] [address] Performed By: #### 2 4321-2 ####[facility]ATORYCLIA [id number] [place] [address] [place] Chloride [Moles/Vol] 111 mmol/L High 98-107 [facility] Comment on above: Order Comment: Speci men Type: BLOOD SPECIMENOrdering Facility: [facility] Address: [address] [place] [address] Performed By: #### 2 4321-2 ####[facility]ATORYCLIA [id number] [address] [place] CO2 [Moles/Vol] 18 mmol/L Low 22-30 [facility] Comment on above: Order Comment: Speci men Type: BLOOD SPECIMENOrdering Facility: [facility] Address: [address] [place] [address] Performed By: #### 2 4321-2 ####[facility]ATORYCLIA [id number] [address] OF [facility] Creatinine [Mass/Vol] 0.57 mg/dL Low 0.58-0.96 [facility] Comment on above: Order Comment: Speci men Type: BLOOD SPECIMENOrdering Facility: [facility] Address: [address] [place] [address] Performed By: #### 2 4321-2 ####[facility]ATORYCLIA [id number] [address] Creatinine and Glomerular filtration rate.predicted panel (S/P/Bld) 91 mL/min/1.73m??? Normal >=60 [facility] Comment on above: Order Comment: Speci men Type: BLOOD SPECIMENOrdering Facility: [facility] Address: [address] [place] [address] Result Comment: Kaylene mated Glomerular Filtration Rate [...] GFR. Performed By: #### 2 4321-2 ####[facility]ATORYCLIA [id number] [place] [address] [place] Glucose [Mass/Vol] 179 mg/dL High 74-99 [facility] Comment on above: Order Comment: Helen rg Type: BLOOD SPECIMENOrdering Facility: [facility] Address: [address] [place] [address] Result Comment: The [place] Diabetes [employer] (ADA) provides guidance for cutoff [...] Standards of Medical Care in Diabetes 2016, [place] [employer]. Diabetes Care. 2016.39(Suppl 1). Performed By: #### 2 4321-2 ####[facility]ATORYCLIA [id number] [place] [address] [place] Potassium [Moles/Vol] 7.3 mmol/L Critically high 3.7-5.1 [facility] Comment on above: Order Comment: Helen rg Type: BLOOD SPECIMENOrdering Facility: [facility] Address: [address] [place] [id number] Performed By: #### 2 4321-2 ####[facility]ATORYCLIA [id number] [place] [id number] [place] Sodium [Moles/Vol] 137 mmol/L Normal 136-144 [facility] Comment on above: Order Comment: Helen rg Type: BLOOD SPECIMENOrdering Facility: [facility] Address: [address] [place] [address] Performed By: #### 2 4321-2 ####[facility]ATORYCLIA [id number] [place] [address] [place] Urea nitrogen [Mass/Vol] 16 mg/dL Normal 7-21 [facility] Comment on above: Order Comment: Speci men Type: BLOOD SPECIMENOrdering Facility: [facility] Address: [address] [place] [address] Performed By: #### 2 4321-2 ####[facility]ATORYCLIA [id number] [place] [address] [place] Anion gap [Moles/Vol] 9 mmol/L Normal 8-15 [facility] Comment on above: Order Comment: Speci men Type: BLOOD SPECIMENOrdering Facility: [facility] Address: [address] [place] [address] Performed By: #### 2 777-1, 71073-6, ####[facility]ATORYCLIA [id number] [place] [address] [place] Calcium [Mass/Vol] 4.8 mg/dL Low 8.5-10.2 [facility] Comment on above: Order Comment: Speci men Type: BLOOD SPECIMENOrdering Facility: [facility] Address: [address] [place] [address] Performed By: #### 2 777-1, 52652-1, ####[facility]ATORYCLIA [id number] [place] [address] [place] Chloride [Moles/Vol] 123 mmol/L High 98-107 [facility] Comment on above: Order Comment: Speci men Type: BLOOD SPECIMENOrdering Facility: [facility] Address: [address] [place] [address] Performed By: #### 2 777-1, 73646-8, ####[facility]ATORYCLIA [id number] [place] [address] [place] CO2 [Moles/Vol] 12 mmol/L Low 22-30 [facility] Comment on above: Order Comment: Speci men Type: BLOOD SPECIMENOrdering Facility: [facility] Address: [address] [place] [address] Performed By: #### 2 777-1, 47729-5, ####[facility]PITALIA [id number] [place] [id number] [place] Creatinine [Mass/Vol] 0.45 mg/dL Low 0.58-0.96 [facility] Comment on above: Order Comment: Speci men Type: BLOOD SPECIMENOrdering Facility: [facility] Address: [address] [place] [address] Performed By: #### 2 777-1, 57671-6, ####[facility]PITALIA [id number] [address] Creatinine and Glomerular filtration rate.predicted panel (S/P/Bld) 96 mL/min/1.73m??? Normal >=60 [facility] Comment on above: Order Comment: Specmigel rg Type: BLOOD SPECIMENOrdering Facility: [facility] Address: [address] [place] [address] Result Comment: Kaylene mated Glomerular Filtration Rate [...] actual GFR. Performed By: #### 2 777-1, 23755-1, ####[facility]ITALIA [id number] [place] [id number] [place] Glucose [Mass/Vol] 125 mg/dL High 74-99 [facility] Comment on above: Order Comment: Speci men Type: BLOOD SPECIMENOrdering Facility: [facility] Address: [address] [place] [address] Result Comment: The [place] Diabetes [employer] (ADA) provides guidance for cutoff [...] Standards of Medical Care in Diabetes 2016, [place] [employer]. Diabetes Care. 2016.39(Suppl 1). Performed By: #### 2 777-1, , ####[facility]ATORYCLIA [id number] [place] [address] [place] Potassium [Moles/Vol] 2.5 mmol/L Low 3.7-5.1 [facility] Comment on above: Order Comment: Helen rg Type: BLOOD SPECIMENOrdering Facility: [facility] Address: [address] [place] [address] Performed By: #### 2 777-1, , ####[facility]ATORYCLIA [id number] [place] [address] [place] Sodium [Moles/Vol] 144 mmol/L Normal 136-144 [facility] Comment on above: Order Comment: Helen rg Type: BLOOD SPECIMENOrdering Facility: [facility] Address: [address] [place] [address] Performed By: #### 2 777-1, , ####[facility]ORYCLIA [id number] [place] [id number] [place] Urea nitrogen [Mass/Vol] 14 mg/dL Normal 7-21 [facility] Comment on above: Order Comment: Helen rg Type: BLOOD SPECIMENOrdering Facility: [facility] Address: [address] [place] [address] Performed By: #### 2 777-1, , ####[facility]ATORYCLIA [id number] [place] [address] [place] Anion gap [Moles/Vol] 10 mmol/L Normal 8-15 [facility] Comment on above: Order Comment: Speci men Type: BLOOD SPECIMENOrdering Facility: [facility] Address: [address] [place] [address] Performed By: #### 2 777-1, , ####[facility]ATORYCLIA [id number] [place] [address] [place] Calcium [Mass/Vol] 6.2 mg/dL Low 8.5-10.2 [facility] Comment on above: Order Comment: Speci men Type: BLOOD SPECIMENOrdering Facility: [facility] Address: [address] [place] [address] Performed By: #### 2 777-1, , ####[facility]ORYCLIA [id number] [place] [address] [place] Chloride [Moles/Vol] 117 mmol/L High 98-107 [facility] Comment on above: Order Comment: Speci men Type: BLOOD SPECIMENOrdering Facility: [facility] Address: [address] [place] [address] Performed By: #### 2 777-1, , ####[facility]ORYCLIA [id number] [place] [address] [place] CO2 [Moles/Vol] 15 mmol/L Low 22-30 [facility] Comment on above: Order Comment: Speci men Type: BLOOD SPECIMENOrdering Facility: [facility] Address: [address] [place] [address] Performed By: #### 2 777-1, , ####[facility]ORYCLIA [id number] [place] [address] [place] Creatinine [Mass/Vol] 0.51 mg/dL Low 0.58-0.96 [facility] Comment on above: Order Comment: Speci men Type: BLOOD SPECIMENOrdering Facility: [facility] Address: [address] [place] [address] Performed By: #### 2 777-1, 83451-5, 05903-7 ####[facility]ITALIA [id number] [address] [place] Creatinine and Glomerular filtration rate.predicted panel (S/P/Bld) 93 mL/min/1.73m??? Normal >=60 [facility] Comment on above: Order Comment: Helen rg Type: BLOOD SPECIMENOrdering Facility: [facility] Address: [address] [place] [address] Result Comment: Kaylene mated Glomerular Filtration Rate [...] actual GFR. Performed By: #### 2 777-1, 66542-6, ####[facility]ATORYIA [id number] [place] [id number] [place] Glucose [Mass/Vol] 148 mg/dL High 74-99 [facility] Comment on above: Order Comment: Helen rg Type: BLOOD SPECIMENOrdering Facility: [facility] Address: [address] [place] [address] Result Comment: The [place] Diabetes [employer] (ADA) provides guidance for cutoff [...] Standards of Medical Care in Diabetes 2016, [place] [employer]. Diabetes Care. 2016.39(Suppl 1). Performed By: #### 2 777-1, 72162-7, ####[facility]ATORYCLIA [id number] [place] [address] [place] Potassium [Moles/Vol] 3.1 mmol/L Low 3.7-5.1 [facility] Comment on above: Order Comment: Speci men Type: BLOOD SPECIMENOrdering Facility: [facility] Address: [address] [place] [address] Performed By: #### 2 777-1, 45254-2, ####[facility]ATORYCLIA [id number] [place] [id number] [place] Sodium [Moles/Vol] 142 mmol/L Normal 136-144 [facility] Comment on above: Order Comment: Speci men Type: BLOOD SPECIMENOrdering Facility: [facility] Address: [address] [place] [address] Performed By: #### 2 777-1, , ####[facility]ATORYCLIA [id number] [address] STATES [facility] Urea nitrogen [Mass/Vol] 17 mg/dL Normal 7-21 [facility] Comment on above: Order Comment: Speci men Type: BLOOD SPECIMENOrdering Facility: [facility] Address: [address] [place] [address] Performed By: #### 2 777-1, 08389-1, ####[facility]ORYCLIA [id number] [address] STATES OF [facility] CBC panel Auto (Bld)on 05-07 Erythrocyte distribution width (RBC) [Ratio] 15.8 % High 11.5-15.0 [facility] Comment on above: Order Comment: Speci men Type: BLOOD SPECIMENOrdering Facility: [facility] Address: [address] [place] [address] Performed By: #### 5 8410-2 ####[facility]ATORYCLIA [id number] [address] Hematocrit (Bld) [Volume fraction] 27.4 % Low 36.0-46.0 [facility] Comment on above: Order Comment: Speci men Type: BLOOD SPECIMENOrdering Facility: [facility] Address: [address] [place] [address] Performed By: #### 5 8410-2 ####[facility]ATORYCLIA [id number] [address] OF [facility] Hemoglobin (Bld) [Mass/Vol] 8.8 g/dL Low 11.5-15.5 [facility] Comment on above: Order Comment: Speci men Type: BLOOD SPECIMENOrdering Facility: [facility] Address: [address] [place] [address] Performed By: #### 5 8410-2 ####[facility]ATORYCLIA [id number] [address] [place] MCH (RBC) [Entitic mass] 29.8 pg Normal 26.0-34.0 [facility] Comment on above: Order Comment: Speci men Type: BLOOD SPECIMENOrdering Facility: [facility] Address: [address] [place] [address] Performed By: #### 5 8410-2 ####[facility]ORYCLIA [id number] [address] OF [place] MCHC (RBC) [Mass/Vol] 32.1 g/dL Normal 30.5-36.0 [facility] Comment on above: Order Comment: Speci men Type: BLOOD SPECIMENOrdering Facility: [facility] Address: [address] [place] [address] Performed By: #### 5 8410-2 ####[facility]ORYCLIA [id number] [address] [place] MCV (RBC) [Entitic vol] 92.9 fL Normal 80.0-100.0 [facility] Comment on above: Order Comment: Speci men Type: BLOOD SPECIMENOrdering Facility: [facility] Address: [address] [place] [address] Performed By: #### 5 8410-2 ####[facility]ORYCLIA [id number] [address] [place] Nucleated RBC (Bld) [#/Vol] 10*3/uL Normal <0.01 [facility] Comment on above: Order Comment: Speci men Type: BLOOD SPECIMENOrdering Facility: [facility] Address: [address] [place] [address] Performed By: #### 5 8410-2 ####[facility]ORYCLIA [id number] [address] [place] Platelet mean volume (Bld) [Entitic vol] 10.8 fL Normal 9.0-12.7 [facility] Comment on above: Order Comment: Speci men Type: BLOOD SPECIMENOrdering Facility: [facility] Address: [address] [place] [address] Performed By: #### 5 8410-2 ####[facility]ORYCLIA [id number] [address] Platelets (Bld) [#/Vol] 250 10*3/uL Normal 150-400 [facility] Comment on above: Order Comment: Speci men Type: BLOOD SPECIMENOrdering Facility: [facility] Address: [address] [place] [address] Performed By: #### 5 8410-2 ####[facility]ORYCLIA [id number] [address] [place] RBC (Bld) [#/Vol] 2.95 10*6/uL Low 3.90-5.20 [facility] Comment on above: Order Comment: Speci men Type: BLOOD SPECIMENOrdering Facility: [facility] Address: [address] [place] [address] Performed By: #### 5 8410-2 ####[facility]ORYCLIA [id number] [address] [place] WBC (Bld) [#/Vol] 12.58 10*3/uL High 3.70-11.00 [facility] Comment on above: Order Comment: Speci men Type: BLOOD SPECIMENOrdering Facility: [facility] Address: [address] [place] [address] Performed By: #### 5 8410-2 ####[facility]ATORYCLIA [id number] [address] Erythrocyte distribution width (RBC) [Ratio] 16.0 % High 11.5-15.0 [facility] Comment on above: Order Comment: Speci men Type: BLOOD SPECIMENOrdering Facility: [facility] Address: [address] [place] [address] Performed By: #### 5 8410-2 ####[facility]ORATORYCLIA [id number] [address] OF [facility] Hematocrit (Bld) [Volume fraction] 21.8 % Low 36.0-46.0 [facility] Comment on above: Order Comment: Speci men Type: BLOOD SPECIMENOrdering Facility: [facility] Address: [address] [place] [address] Performed By: #### 5 8410-2 ####[facility]ATORYCLIA [id number] [address] Hemoglobin (Bld) [Mass/Vol] 7.0 g/dL Low 11.5-15.5 [facility] Comment on above: Order Comment: Speci men Type: BLOOD SPECIMENOrdering Facility: [facility] Address: [address] [place] [address] Performed By: #### 5 8410-2 ####[facility]ORATORYCLIA [id number] [address] MCH (RBC) [Entitic mass] 29.9 pg Normal 26.0-34.0 [facility] Comment on above: Order Comment: Speci men Type: BLOOD SPECIMENOrdering Facility: [facility] Address: [address] [place] [address] Performed By: #### 5 8410-2 ####[facility]ATORYCLIA [id number] [address] MCHC (RBC) [Mass/Vol] 32.1 g/dL Normal 30.5-36.0 [facility] Comment on above: Order Comment: Speci men Type: BLOOD SPECIMENOrdering Facility: [facility] Address: [address] [place] [address] Performed By: #### 5 8410-2 ####[facility]ATORYCLIA [id number] [address] OF [place] MCV (RBC) [Entitic vol] 93.2 fL Normal 80.0-100.0 [facility] Comment on above: Order Comment: Speci men Type: BLOOD SPECIMENOrdering Facility: [facility] Address: [address] [place] [address] Performed By: #### 5 8410-2 ####[facility]ATORYCLIA [id number] [address] Nucleated RBC (Bld) [#/Vol] 10*3/uL Normal <0.01 [facility] Comment on above: Order Comment: Speci men Type: BLOOD SPECIMENOrdering Facility: [facility] Address: [address] [place] [address] Performed By: #### 5 8410-2 ####[facility]ATORYCLIA [id number] [address] OF [place] Platelet mean volume (Bld) [Entitic vol] 10.7 fL Normal 9.0-12.7 [facility] Comment on above: Order Comment: Speci men Type: BLOOD SPECIMENOrdering Facility: [facility] Address: [address] [place] [address] Performed By: #### 5 8410-2 ####[facility]ATORYCLIA [id number] [address] OF [place] Platelets (Bld) [#/Vol] 284 10*3/uL Normal 150-400 [facility] Comment on above: Order Comment: Speci men Type: BLOOD SPECIMENOrdering Facility: [facility] Address: [address] [place] [address] Performed By: #### 5 8410-2 ####[facility]ATORYCLIA [id number] [address] STATES OF [facility] RBC (Bld) [#/Vol] 2.34 10*6/uL Low 3.90-5.20 [facility] Comment on above: Order Comment: Speci men Type: BLOOD SPECIMENOrdering Facility: [facility] Address: [address] [place] [address] Performed By: #### 5 8410-2 ####[facility]ATORYCLIA [id number] [address] [place] WBC (Bld) [#/Vol] 10.97 10*3/uL Normal 3.70-11.00 [facility] Comment on above: Order Comment: Speci men Type: BLOOD SPECIMENOrdering Facility: [facility] Address: [address] [place] [address] Performed By: #### 5 8410-2 ####[facility]ATORYCLIA [id number] [address] OF [facility] Erythrocyte distribution width (RBC) [Ratio] 16.2 % High 11.5-15.0 [facility] Comment on above: Order Comment: Speci men Type: BLOOD SPECIMENOrdering Facility: [facility] Address: [address] [place] [address] Performed By: #### 5 8410-2 ####[facility]ATORYCLIA [id number] [address] OF [facility] Hematocrit (Bld) [Volume fraction] 15.9 % Low 36.0-46.0 [facility] Comment on above: Order Comment: Speci men Type: BLOOD SPECIMENOrdering Facility: [facility] Address: [address] [place] [address] Performed By: #### 5 8410-2 ####[facility]ATORYCLIA [id number] [address] [place] Hemoglobin (Bld) [Mass/Vol] 5.0 g/dL Critically low 11.5-15.5 [facility] Comment on above: Order Comment: Speci men Type: BLOOD SPECIMENOrdering Facility: [facility] Address: [address] [place] [address] Performed By: #### 5 8410-2 ####[facility]ATORYCLIA [id number] [address] MCH (RBC) [Entitic mass] 29.8 pg Normal 26.0-34.0 [facility] Comment on above: Order Comment: Speci men Type: BLOOD SPECIMENOrdering Facility: [facility] Address: [address] [place] [address] Performed By: #### 5 8410-2 ####[facility]ATORYCLIA [id number] [address] MCHC (RBC) [Mass/Vol] 31.4 g/dL Normal 30.5-36.0 [facility] Comment on above: Order Comment: Speci men Type: BLOOD SPECIMENOrdering Facility: [facility] Address: [address] [place] [address] Performed By: #### 5 8410-2 ####[facility]ATORYCLIA [id number] [address] MCV (RBC) [Entitic vol] 94.6 fL Normal 80.0-100.0 [facility] Comment on above: Order Comment: Speci men Type: BLOOD SPECIMENOrdering Facility: [facility] Address: [address] [place] [address] Performed By: #### 5 8410-2 ####[facility]ATORYCLIA [id number] [address] Nucleated RBC (Bld) [#/Vol] 10*3/uL Normal <0.01 [facility] Comment on above: Order Comment: Speci men Type: BLOOD SPECIMENOrdering Facility: [facility] Address: [address] [place] [address] Performed By: #### 5 8410-2 ####[facility]ATORYCLIA [id number] [address] [place] Platelet mean volume (Bld) [Entitic vol] 10.6 fL Normal 9.0-12.7 [facility] Comment on above: Order Comment: Speci men Type: BLOOD SPECIMENOrdering Facility: [facility] Address: [address] [place] [address] Performed By: #### 5 8410-2 ####[facility]ATORYCLIA [id number] [place] [address] [place] Platelets (Bld) [#/Vol] 191 10*3/uL Normal 150-400 [facility] Comment on above: Order Comment: Speci men Type: BLOOD SPECIMENOrdering Facility: [facility] Address: [address] [place] [address] Result Comment: No c lot detected. Performed By: #### 5 8410-2 ####[facility]ATORYCLIA [id number] [place] [address] [place] RBC (Bld) [#/Vol] 1.68 10*6/uL Low 3.90-5.20 [facility] Comment on above: Order Comment: Speci men Type: BLOOD SPECIMENOrdering Facility: [facility] Address: [address] [place] [address] Performed By: #### 5 8410-2 ####[facility]ATORYCLIA [id number] [place] [address] [place] WBC (Bld) [#/Vol] 8.31 10*3/uL Normal 3.70-11.00 [facility] Comment on above: Order Comment: Speci men Type: BLOOD SPECIMENOrdering Facility: [facility] Address: [address] [place] [address] Performed By: #### 5 8410-2 ####[facility]ATORYCLIA [id number] [address] [place] CONSULT PROGon 05-07-2024 CONSULT PROG Normal [facility] CT BRAIN WO IVCONon 05-07-[address] BRAIN WO IVCON Normal [facility] CT BRAIN WO IVCON Normal [facility] Calcium.ionized [Moles/Vol]o n 05-07-2024 Calcium.ionized (BldV) [Mass/Vol] 1.06 mmol/L Low 1.08-1.30 [facility] Comment on above: Order Comment: Speci men Type: BLOOD SPECIMENOrdering Facility: [facility] Address: [address] [place] [address] Performed By: #### 1 995-0 ####[facility]ATORYCLIA [id number] [address] [place] Calcium.ionized adjusted to pH 7.4 (Bld) [Moles/Vol] 1.07 mmol/L Low 1.08-1.30 [facility] Comment on above: Order Comment: Speci men Type: BLOOD SPECIMENOrdering Facility: [facility] Address: [address] [place] [address] Performed By: #### 1 995-0 ####[facility]ATORYCLIA [id number] [address] [place] Calcium.ionized (BldV) [Mass/Vol] 1.07 mmol/L Low 1.08-1.30 [facility] Comment on above: Order Comment: Speci men Type: BLOOD SPECIMENOrdering Facility: [facility] Address: [address] [place] [address] Performed By: #### 1 995-0 ####[facility]ATORYCLIA [id number] [address] [place] Calcium.ionized adjusted to pH 7.4 (Bld) [Moles/Vol] 1.09 mmol/L Normal 1.08-1.30 [facility] Comment on above: Order Comment: Speci men Type: BLOOD SPECIMENOrdering Facility: [facility] Address: [address] [place] [address] Performed By: #### 1 995-0 ####[facility]ATORYCLIA [id number] [place] [address] [place] Magnesium SerPl-mCncon 05-07 Magnesium [Mass/Vol] 1.1 mg/dL Low 1.7-2.3 [facility] Comment on above: Order Comment: Speci men Type: BLOOD SPECIMENOrdering Facility: [facility] Address: [address] [place] [address] Performed By: #### 2 777-1, 82050-2, ####[facility]ATORYCLIA [id number] [place] [address] [place] Magnesium [Mass/Vol] 1.5 mg/dL Low 1.7-2.3 [facility] Comment on above: Order Comment: Speci men Type: BLOOD SPECIMENOrdering Facility: [facility] Address: [address] [place] [address] Performed By: #### 2 777-1, , ####[facility]ATORYCLIA [id number] [address] [place] NURSING PROGon 05-07-2024 NURSING PROG Normal [facility] NURSING PROG Normal [facility] OPERATIVE NOon 05-07-2024 OPERATIVE NO Normal [facility] Phosphate SerPl-mCncon 05-07 Phosphate [Mass/Vol] 2.1 mg/dL Low 2.7-4.8 [facility] Comment on above: Order Comment: Speci men Type: BLOOD SPECIMENOrdering Facility: [facility] Address: [address] [place] [address] Performed By: #### 2 777-1, , ####[facility]ORATORYCLIA [id number] [place] [id number] [place] Phosphate [Mass/Vol] 2.6 mg/dL Low 2.7-4.8 [facility] Comment on above: Order Comment: Speci men Type: BLOOD SPECIMENOrdering Facility: [facility] Address: [address] [place] [address] Performed By: #### 2 777-1, 27481-7, ####[facility]ORATORYCLIA [id number] [place] [address] [place] THERAPY NTon 05-07-2024 THERAPY NT Normal [facility] XR ABDOMEN 1V SUPINEon 05-07 XR ABDOMEN 1V SUPINE Normal [facility] XR CHEST 1V FRONTALon 2023 XR CHEST 1V FRONTAL Normal [facility] XR FEMUR 2V AP/LAT LTon XR FEMUR 2V AP/LAT LT Normal [facility] ALLIED HEALTHon 05-06-2024 ALLIED HEALTH Normal [facility] ANES POSTPROC EVALon 024 ANES POSTPROC EVAL Normal [facility] ANES PRE-OPon 05-06-2024 ANES PRE-OP Normal [facility] Basic Metabolic Profile (BMP )on 05-06-2024 BUN/CRE 29.7 RATIO High 10-20 [facility] Comment on above: Performed By: #### L 500.2500, L100.0100 #### [facility] [address] [place], [address] CA,Total 8.6 mg/dL Normal 8.5-10.1 [facility] Comment on above: Performed By: #### L 500.2500, L100.0100 #### [facility] [address] [place], [address] Chloride [Moles/Vol] 109 mmol/L High 98-107 [facility] Comment on above: Performed By: #### L 500.2500, L100.0100 #### [facility] [address] [place], [address] CO2 [Moles/Vol] 24.0 mmol/L Normal 21.0-32.0 [facility] Comment on above: Performed By: #### L 500.2500, L100.0100 #### [facility] [address] [place], [address] Creatinine [Mass/Vol] 0.57 mg/dL Normal 0.55-1.02 [facility] Comment on above: Result Comment: The validity of the calculated GFR GFRAA in patients over 70 years has not been determined. Clinical correlation is essential. Performed By: #### L 500.2500, L100.0100 #### [facility] [address] [place], [address] ECRCL 60.00 ml/min Normal [facility] Comment on above: Performed By: #### L 500.2500, L100.0100 #### [facility] [address] [place], [address] EST GFR - AA 130 mL/min Normal >60 [facility] Comment on above: Result Comment: Afri can [place] GFR Calc Performed By: #### L 500.2500, L100.0100 #### [facility] [address] [place], [address] GAP 7 Normal 5-15 [facility] Comment on above: Performed By: #### L 500.2500, L100.0100 #### [facility] [address] [place], [address] GFR/1.73 sq M.predicted among non-blacks MDRD (S/P/Bld) [Vol rate/Area] 107 mL/min/{1.73_m2} Normal >60 [facility] Comment on above: Result Comment: Non- GFR Calc Performed By: #### L 500.2500, L100.0100 #### [facility] [address] [place], [address] Glucose [Mass/Vol] 134 mg/dL High 74-106 [facility] Comment on above: Result Comment: Fast ing Glucose result greater than or equal to 126 mg/dL suggests DIABETES MELLITUS per A.D.A. criteria. Performed By: #### L 500.2500, L100.0100 #### [facility] [address] [place], [address] Potassium [Moles/Vol] 3.6 mmol/L Normal 3.5-5.1 [facility] Comment on above: Result Comment: Slig ht Hemolysis, Result may be falsely increased. Performed By: #### L 500.2500, L100.0100 #### [facility] [address] [place], [address] Sodium [Moles/Vol] 140 mmol/L Normal 136-145 [facility] Comment on above: Performed By: #### L 500.2500, L100.0100 #### [facility] [address] [place], [address] Urea nitrogen [Mass/Vol] 17 mg/dL Normal 7-18 [facility] Comment on above: Performed By: #### L 500.2500, L100.0100 #### [facility] [address] [place], [address] Basic metabolic 2000 panelon 05-06-2024 Anion gap [Moles/Vol] 11 mmol/L Normal 8-15 [facility] Comment on above: Order Comment: Speci men Type: BLOOD SPECIMENOrdering Facility: [facility] Address: [address] [place] [address] Performed By: #### 2 432-2, ####[facility]ATORYCLIA [id number] [place] [address] [place] Calcium [Mass/Vol] 8.5 mg/dL Normal 8.5-10.2 [facility] Comment on above: Order Comment: Speci men Type: BLOOD SPECIMENOrdering Facility: [facility] Address: [address] [place] [address] Performed By: #### 2 432-2, ####[facility]ATORYCLIA [id number] [place] [address] [place] Chloride [Moles/Vol] 103 mmol/L Normal 98-107 [facility] Comment on above: Order Comment: Speci men Type: BLOOD SPECIMENOrdering Facility: [facility] Address: [address] [place] [address] Performed By: #### 2 43206-01, ####[facility]ATORYCLIA [id number] [place] [id number] [place] [facility] CO2 [Moles/Vol] 24 mmol/L Normal 22-30 [facility] Comment on above: Order Comment: Speci men Type: BLOOD SPECIMENOrdering Facility: [facility] Address: [address] [place] [address] Performed By: #### 2 4320-07, ####[facility]ATORYCLIA [id number] [address] OF [facility] Creatinine [Mass/Vol] 0.56 mg/dL Low 0.58-0.96 [facility] Comment on above: Order Comment: Speci men Type: BLOOD SPECIMENOrdering Facility: [facility] Address: [address] [place] [address] Performed By: #### 2 4320-07, ####[facility]ATORYCLIA [id number] [address] Creatinine and Glomerular filtration rate.predicted panel (S/P/Bld) 91 mL/min/1.73m??? Normal >=60 [facility] Comment on above: Order Comment: Speci men Type: BLOOD SPECIMENOrdering Facility: [facility] Address: [address] [place] [address] Result Comment: Kaylene mated Glomerular Filtration Rate [...] actual GFR. Performed By: #### 2 43206-01, ####[facility]ATORYCLIA [id number] [place] [id number] [place] Glucose [Mass/Vol] 161 mg/dL High 74-99 [facility] Comment on above: Order Comment: Speci men Type: BLOOD SPECIMENOrdering Facility: [facility] Address: [address] [place] [address] Result Comment: The [place] Diabetes Association (ADA) provides guidance for cutoff [...] Standards of Medical Care in Diabetes 2016, [place] [employer] Association. Diabetes Care. 2016.39(Suppl 1). Performed By: #### 2 432-, ####[facility]ATORYCLIA [id number] [place] [address] [place] Potassium [Moles/Vol] 3.8 mmol/L Normal 3.7-5.1 [facility] Comment on above: Order Comment: Helen rg Type: BLOOD SPECIMENOrdering Facility: [facility] Address: [address] [place] [address] Performed By: #### 2 432-, ####[facility]ATORYCLIA [id number] [place] [address] [place] Sodium [Moles/Vol] 138 mmol/L Normal 136-144 [facility] Comment on above: Order Comment: Bernardoi men Type: BLOOD SPECIMENOrdering Facility: [facility] Address: [address] [place], [place] [address] Performed By: #### 2 4320-07, ####[facility]ATORYCLIA [id number] [place] [address] [place] Urea nitrogen [Mass/Vol] 15 mg/dL Normal 7-21 [facility] Comment on above: Order Comment: Speci men Type: BLOOD SPECIMENOrdering Facility: [facility] Address: [address] [place] [address] Performed By: #### 2 4321-2, 58178-3 ####[facility]ATORYCLIA [id number] [place] [address] [place] Anion gap [Moles/Vol] 7 mmol/L Low 8-15 [facility] Comment on above: Order Comment: Speci men Type: BLOOD SPECIMENOrdering Facility: [facility] Address: [address] [place] [address] Performed By: #### 1 9123-9, 27711-28, 88581-5 ####[facility]ATORYCLIA [id number] [place] [address] [place] Calcium [Mass/Vol] 3.9 mg/dL Low 8.5-10.2 [facility] Comment on above: Order Comment: Speci men Type: BLOOD SPECIMENOrdering Facility: [facility] Address: [address] [place] [address] Performed By: #### 1 9123-9, 27711-28, 02825-3 ####[facility]ORYCLIA [id number] [place] [address] [place] Chloride [Moles/Vol] 124 mmol/L High 98-107 [facility] Comment on above: Order Comment: Speci men Type: BLOOD SPECIMENOrdering Facility: [facility] Address: [address] [place] [address] Performed By: #### 1 9123-9, 2776-05, 09319-0 ####[facility]ATORYCLIA [id number] [place] [address] [place] CO2 [Moles/Vol] 12 mmol/L Low 22-30 [facility] Comment on above: Order Comment: Speci men Type: BLOOD SPECIMENOrdering Facility: [facility] Address: [address] [place] [address] Performed By: #### 1 9123-9, 2771, 63782-9 ####[facility]ATORYCLIA [id number] [place], [place] [id number] [place] [address] STATES [place] [facility] Creatinine [Mass/Vol] 0.25 mg/dL Low 0.58-0.96 [facility] Comment on above: Order Comment: Helen rg Type: BLOOD SPECIMENOrdering Facility: [facility] Address: [address] [place] [address] Performed By: #### 1 9123-9, 2777-1, 38207-5 ####[facility]ATORYCLIA [id number] [address] Creatinine and Glomerular filtration rate.predicted panel (S/P/Bld) 111 mL/min/1.73m??? Normal >=60 [facility] Comment on above: Order Comment: Helen rg Type: BLOOD SPECIMENOrdering Facility: [facility] Address: [address] [place] [address] Result Comment: Kaylene mated Glomerular Filtration Rate [...] GFR. Performed By: #### 1 9123-9, 2777-1, 17914-3 ####[facility]ORYCLIA [id number] [address] Glucose [Mass/Vol] 94 mg/dL Normal 74-99 [facility] Comment on above: Order Comment: Helen rg Type: BLOOD SPECIMENOrdering Facility: [facility] Address: [address] [place] [address] Result Comment: The [place] Diabetes Association (ADA) provides guidance for cutoff [...] Standards of Medical Care in Diabetes 2016, [place] Diabetes [employer]. Diabetes Care. 2016.39(Suppl 1). Performed By: #### 1 9123-9, 2777-1, 41695-3 ####[facility]ORYCLIA [id number] [place] [address] [place] Potassium [Moles/Vol] 1.8 mmol/L Critically low 3.7-5.1 [facility] Comment on above: Order Comment: Speci men Type: BLOOD SPECIMENOrdering Facility: [facility] Address: [address] [place] [address] Performed By: #### 1 9123-9, 27711-28, 74955-3 ####[facility]ORYCLIA [id number] [place] [address] [place] Sodium [Moles/Vol] 143 mmol/L Normal 136-144 [facility] Comment on above: Order Comment: Speci men Type: BLOOD SPECIMENOrdering Facility: [facility] Address: [address] [place] [address] Performed By: #### 1 9123-9, 2776-05, 22961-7 ####[facility]ORYCLIA [id number] [place] [address] [place] Urea nitrogen [Mass/Vol] 8 mg/dL Normal 7-21 [facility] Comment on above: Order Comment: Speci men Type: BLOOD SPECIMENOrdering Facility: [facility] Address: [address] [place] [address] Performed By: #### 1 9123-9, 27711-28, 81684-2 ####[facility]ORYCLIA [id number] [place] [address] [place] Anion gap [Moles/Vol] 8 mmol/L Normal 8-15 [facility] Comment on above: Order Comment: Speci men Type: BLOOD SPECIMENOrdering Facility: [facility] Address: [address] [place] [address] [id number] Performed By: #### 2 4321-2 ####[facility] LABORATORYCLIA [id number] [address] [place] Calcium [Mass/Vol] 3.4 mg/dL Low 8.5-10.2 [facility] Comment on above: Order Comment: Speci men Type: BLOOD SPECIMENOrdering Facility: [facility] Address: [address] [place] [address] Performed By: #### 2 4321-2 ####[facility] LABORATORYCLIA [id number] [address] [place] Chloride [Moles/Vol] 102 mmol/L Normal 98-107 [place] [facility] Comment on above: Order Comment: Speci men Type: BLOOD SPECIMENOrdering Facility: [facility] Address: [address] [place] [address] Performed By: #### 2 4321-2 ####[facility]ATORYCLIA [id number] [address] OF [facility] CO2 [Moles/Vol] 10 mmol/L Low 22-30 [facility] Comment on above: Order Comment: Speci men Type: BLOOD SPECIMENOrdering Facility: [facility] Address: [address] [place] [address] Performed By: #### 2 4321-2 ####[facility]ORATORYCLIA [id number] [address] [place] Creatinine [Mass/Vol] 0.25 mg/dL Low 0.58-0.96 [facility] Comment on above: Order Comment: Speci men Type: BLOOD SPECIMENOrdering Facility: [facility] Address: [address] [place] [address] Performed By: #### 2 4321-2 ####[facility]ORATORYCLIA [id number] [address] Creatinine and Glomerular filtration rate.predicted panel (S/P/Bld) 111 mL/min/1.73m??? Normal >=60 [facility] Comment on above: Order Comment: Speci men Type: BLOOD SPECIMENOrdering Facility: [facility] Address: [address] [place] [address] Result Comment: Kaylene mated Glomerular Filtration Rate [...] GFR. Performed By: #### 2 4321-2 ####[facility]ATORYCLIA [id number] [place] [address] [place] Glucose [Mass/Vol] 85 mg/dL Normal 74-99 [facility] Comment on above: Order Comment: Helen rg Type: BLOOD SPECIMENOrdering Facility: [facility] Address: [address] [place] [address] Result Comment: The [place] Diabetes [employer] (ADA) provides guidance for cutoff [...] Standards of Medical Care in Diabetes 2016, [place] [employer]. Diabetes Care. 2016.39(Suppl 1). Performed By: #### 2 4321-2 ####[facility]ATORYCLIA [id number] [place] [address] [place] Potassium [Moles/Vol] 1.7 mmol/L Critically low 3.7-5.1 [facility] Comment on above: Order Comment: Helen rg Type: BLOOD SPECIMENOrdering Facility: [facility] Address: [address] [id number] Performed By: #### 2 4321-2 ####[facility]ATORYCLIA [id number] [place] [address] [place] [facility] Sodium [Moles/Vol] 120 mmol/L Low 136-144 [facility] Comment on above: Order Comment: Speci men Type: BLOOD SPECIMENOrdering Facility: [facility] Address: [address] [place] [address] Performed By: #### 2 4321-2 ####[facility]ATORYCLIA [id number] [place] [id number] [place] Urea nitrogen [Mass/Vol] 8 mg/dL Normal 7-21 [facility] Comment on above: Order Comment: Speci men Type: BLOOD SPECIMENOrdering Facility: [facility] Address: [address] [place] [address] Performed By: #### 2 4321-2 ####[facility]ATORYCLIA [id number] [place] [id number] [place] CBC W/Diff, Automatedon 12-0 Absolute Lymph 1.89 X10 3/uL Normal 0.83-4.51 [facility] Comment on above: Performed By: #### L 500.2500, L100.0100 #### [facility] Laboratory [address] [place], [address] Absolute Neut 4.9 X10 3/uL Normal 2.0-7.7 [facility] Comment on above: Performed By: #### L 500.2500, L100.0100 #### [facility] [address] [place], [address] Basophils/100 WBC (Bld) 0.6 % Normal 0-1 [facility] Comment on above: Performed By: #### L 500.2500, L100.0100 #### [facility] [address] [place], [address] Eosinophils/100 WBC (Bld) 2.6 % Normal 0-5 [facility] Comment on above: Performed By: #### L 500.2500, L100.0100 #### [facility] [address] [place], [address] Erythrocyte distribution width (RBC) [Ratio] 15.9 % High 11.6-14.6 [facility] Comment on above: Performed By: #### L 500.2500, L100.0100 #### [facility] [address] [place], [address] Hematocrit (Bld) [Volume fraction] 36.9 % Low 37-47 [facility] Comment on above: Performed By: #### L 500.2500, L100.0100 #### [facility] [address] [place], [address] Hemoglobin (Bld) [Mass/Vol] 11.4 g/dL Low 12.0-15.0 [facility] Comment on above: Performed By: #### L 500.2500, L100.0100 #### [facility] [address] [place], [address] IG% 1.500 High 0.0-0.9 [facility] Comment on above: Result Comment: IG% - Immature Granulocytes (promyelocytes, myelocytes and metamyelocytes) > 1% indicates that a LEFT SHIFT is Present. Performed By: #### L 500.2500, L100.0100 #### [facility] [address] [place], [address] Lymphocytes/100 WBC (Bld) 23.6 % Normal 19-41 [facility] Comment on above: Performed By: #### L 500.2500, L100.0100 #### [facility] [address] [place], [address] MCH (RBC) [Entitic mass] 28.6 pg Normal 27.0-32.0 [facility] Comment on above: Performed By: #### L 500.2500, L100.0100 #### [facility] [address] [place], [address] MCHC (RBC) [Mass/Vol] 30.9 g/dL Low 32-36 [facility] Comment on above: Performed By: #### L 500.2500, L100.0100 #### [facility] [address] [place], [address] MCV (RBC) [Entitic vol] 92.5 fL Normal 81-99 [facility] Comment on above: Performed By: #### L 500.2500, L100.0100 #### [facility] [address] [place], [address] Monocytes/100 WBC (Bld) 10.4 % High 0-10 [facility] Comment on above: Performed By: #### L 500.2500, L100.0100 #### [facility] [address] [place], [address] Neutrophils/100 WBC (Bld) 61.3 % Normal 47-70 [facility] Comment on above: Performed By: #### L 500.2500, L100.0100 #### [facility] [address] [place], [address] Nucleated RBC (Bld) [#/Vol] 0 10*3/uL Normal 0-5 [facility] Comment on above: Performed By: #### L 500.2500, L100.0100 #### [facility] [address] [place], [address] Platelet mean volume (Bld) [Entitic vol] 10.7 fL Normal 6.2-12.0 [facility] Comment on above: Performed By: #### L 500.2500, L100.0100 #### [facility] [address] [place], [address] Platelets (Bld) [#/Vol] 373 10*3/uL Normal 150-450 [facility] Comment on above: Performed By: #### L 500.2500, L100.0100 #### [facility] [address] [place], [address] RBC (Bld) [#/Vol] 3.99 10*6/uL Low 4.2-5.4 [facility] Comment on above: Performed By: #### L 500.2500, L100.0100 #### [facility] [address] [place], [address] RDW SD 54.1 fl High 35.1-43.9 [facility] Comment on above: Performed By: #### L 500.2500, L100.0100 #### [facility] [address] [place], [address] WBC (Bld) [#/Vol] 8.0 10*3/uL Normal 4.4-11.0 [facility] Comment on above: Performed By: #### L 500.2500, L100.0100 #### [facility] [address] [place], [address] CBC panel Auto (Bld)on 05-06 Erythrocyte distribution width (RBC) [Ratio] 15.7 % High 11.5-15.0 [facility] Comment on above: Order Comment: Speci men Type: BLOOD SPECIMENOrdering Facility: [facility] Address: [address] [place] [address] Performed By: #### 5 8410-2 ####[facility]ATORYCLIA [id number] [address] STATES OF [facility] Hematocrit (Bld) [Volume fraction] 29.8 % Low 36.0-46.0 [facility] Comment on above: Order Comment: Speci men Type: BLOOD SPECIMENOrdering Facility: [facility] Address: [address] [place] [address] Performed By: #### 5 8410-2 ####[facility]ATORYCLIA [id number] [address] [place] Hemoglobin (Bld) [Mass/Vol] 9.4 g/dL Low 11.5-15.5 [facility] Comment on above: Order Comment: Speci men Type: BLOOD SPECIMENOrdering Facility: [facility] Address: [address] [place] [address] Performed By: #### 5 8410-2 ####[facility]ATORYCLIA [id number] [address] MCH (RBC) [Entitic mass] 29.7 pg Normal 26.0-34.0 [facility] Comment on above: Order Comment: Speci men Type: BLOOD SPECIMENOrdering Facility: [facility] Address: [address] [place] [address] Performed By: #### 5 8410-2 ####[facility]ORYCLIA [id number] [address] MCHC (RBC) [Mass/Vol] 31.5 g/dL Normal 30.5-36.0 [facility] Comment on above: Order Comment: Speci men Type: BLOOD SPECIMENOrdering Facility: [facility] Address: [address] [place] [address] Performed By: #### 5 8410-2 ####[facility]ATORYCLIA [id number] [address] MCV (RBC) [Entitic vol] 94.0 fL Normal 80.0-100.0 [facility] Comment on above: Order Comment: Speci men Type: BLOOD SPECIMENOrdering Facility: [facility] Address: [address] [place] [address] Performed By: #### 5 8410-2 ####[facility]ORYCLIA [id number] [address] Nucleated RBC (Bld) [#/Vol] 10*3/uL Normal <0.01 [facility] Comment on above: Order Comment: Speci men Type: BLOOD SPECIMENOrdering Facility: [facility] Address: [address] [place] [address] Performed By: #### 5 8410-2 ####[facility]ATORYCLIA [id number] [address] [place] Platelet mean volume (Bld) [Entitic vol] 10.6 fL Normal 9.0-12.7 [facility] Comment on above: Order Comment: Speci men Type: BLOOD SPECIMENOrdering Facility: [facility] Address: [address] [place] [address] Performed By: #### 5 8410-2 ####[facility]ATORYCLIA [id number] [place] [address] [place] Platelets (Bld) [#/Vol] 283 10*3/uL Normal 150-400 [facility] Comment on above: Order Comment: Speci men Type: BLOOD SPECIMENOrdering Facility: [facility] Address: [address] [place] [address] Performed By: #### 5 8410-2 ####[facility]ATORYCLIA [id number] [address] [place] RBC (Bld) [#/Vol] 3.17 10*6/uL Low 3.90-5.20 [facility] Comment on above: Order Comment: Speci men Type: BLOOD SPECIMENOrdering Facility: [facility] Address: [address] [place] [address] Performed By: #### 5 8410-2 ####[facility]ATORYCLIA [id number] [address] [place] WBC (Bld) [#/Vol] 10.85 10*3/uL Normal 3.70-11.00 [facility] Comment on above: Order Comment: Speci men Type: BLOOD SPECIMENOrdering Facility: [facility] Address: [address] [place] [address] Performed By: #### 5 8410-2 ####[facility]ATORYCLIA [id number] [address] [place] Erythrocyte distribution width (RBC) [Ratio] 15.9 % High 11.5-15.0 [facility] Comment on above: Order Comment: Speci men Type: BLOOD SPECIMENOrdering Facility: [facility] Address: [address] [place] [address] Performed By: #### 5 8410-2 ####[facility]ATORYCLIA [id number] [address] STATES OF [facility] Hematocrit (Bld) [Volume fraction] 34.0 % Low 36.0-46.0 [facility] Comment on above: Order Comment: Speci men Type: BLOOD SPECIMENOrdering Facility: [facility] Address: [address] [place] [address] Performed By: #### 5 8410-2 ####[facility]ORYCLIA [id number] [address] [place] OF [facility] Hemoglobin (Bld) [Mass/Vol] 10.7 g/dL Low 11.5-15.5 [facility] Comment on above: Order Comment: Speci men Type: BLOOD SPECIMENOrdering Facility: [facility] Address: [address] [place] [address] Performed By: #### 5 8410-2 ####[facility]ATORYCLIA [id number] [address] [place] MCH (RBC) [Entitic mass] 29.5 pg Normal 26.0-34.0 [facility] Comment on above: Order Comment: Speci men Type: BLOOD SPECIMENOrdering Facility: [facility] Address: [address] [place] [address] Performed By: #### 5 8410-2 ####[facility]ATORYCLIA [id number] [address] [place] MCHC (RBC) [Mass/Vol] 31.5 g/dL Normal 30.5-36.0 [facility] Comment on above: Order Comment: Speci men Type: BLOOD SPECIMENOrdering Facility: [facility] Address: [address] [place] [address] Performed By: #### 5 8410-2 ####[facility]ATORYCLIA [id number] [address] MCV (RBC) [Entitic vol] 93.7 fL Normal 80.0-100.0 [facility] Comment on above: Order Comment: Speci men Type: BLOOD SPECIMENOrdering Facility: [facility] Address: [address] [place] [address] Performed By: #### 5 8410-2 ####[facility]ATORYCLIA [id number] [address] [place] Nucleated RBC (Bld) [#/Vol] 10*3/uL Normal <0.01 [facility] Comment on above: Order Comment: Speci men Type: BLOOD SPECIMENOrdering Facility: [facility] Address: [address] [place] [address] Performed By: #### 5 8410-2 ####[facility]ATORYCLIA [id number] [address] Platelet mean volume (Bld) [Entitic vol] 11.2 fL Normal 9.0-12.7 [facility] Comment on above: Order Comment: Speci men Type: BLOOD SPECIMENOrdering Facility: [facility] Address: [address] [place] [address] Performed By: #### 5 8410-2 ####[facility]ATORYCLIA [id number] [address] Platelets (Bld) [#/Vol] 355 10*3/uL Normal 150-400 [facility] Comment on above: Order Comment: Speci men Type: BLOOD SPECIMENOrdering Facility: [facility] Address: [address] [place] [address] Performed By: #### 5 8410-2 ####[facility]ATORYCLIA [id number] [address] OF [place] RBC (Bld) [#/Vol] 3.63 10*6/uL Low 3.90-5.20 [facility] Comment on above: Order Comment: Speci men Type: BLOOD SPECIMENOrdering Facility: [facility] Address: [address] [place] [address] Performed By: #### 5 8410-2 ####[facility]ATORYCLIA [id number] [address] [place] WBC (Bld) [#/Vol] 12.97 10*3/uL High 3.70-11.00 [facility] Comment on above: Order Comment: Speci men Type: BLOOD SPECIMENOrdering Facility: [facility] Address: [address] [place] [address] Performed By: #### 5 8410-2 ####[facility]ATORYCLIA [id number] [address] OF [place] CONSULTon 05-06-2024 CONSULT Normal [facility] CONSULT Normal [facility] CONSULT Normal [facility] CT ABD/PEL W IVCONon 024 CT ABD/PEL W IVCON Normal [facility] CT BRAIN WO IVCONon 05-06-[address] BRAIN WO IVCON Normal [facility] CT BRAIN WO IVCON Invalid Interpretation Code [facility] Calcium.ionized [Moles/Vol]o n 05-06-2024 Calcium.ionized (BldV) [Mass/Vol] 0.96 mmol/L Low 1.08-1.30 [facility] Comment on above: Order Comment: Speci men Type: BLOOD SPECIMENOrdering Facility: [facility] Address: [address] [place] [address] Performed By: #### 1 995-0 ####[facility]ATORYCLIA [id number] [address] Calcium.ionized adjusted to pH 7.4 (Bld) [Moles/Vol] 0.91 mmol/L Low 1.08-1.30 [facility] Comment on above: Order Comment: Speci men Type: BLOOD SPECIMENOrdering Facility: [facility] Address: [address] [id number] Performed By: #### 1 995-0 ####[facility]ATORYCLIA [id number] [address] OF [place] ED NOTEon 05-06-2024 ED NOTE HNO ID: [id number] Author: RADHAMES YU RN Service: ? Author Type: Registered Nurse Type: ED Notes Filed: 05/06/2024 07:05 Note Text: Report given to Earline GUEVARA [facility] ED NOTE HNO ID: [id number] Author: WILBERT YOUNG RN Service: ? Author Type: Registered Nurse Type: ED Notes Filed: 05/06/2024 06:52 Note Text: Lab called this RN and needed a redraw for global hemostasis with lysis r/t time it took to arrive in lab. [facility] ED NOTE HNO ID: [id number] Author: RADHAMES YU RN Service: ? Author Type: Registered Nurse Type: ED Notes Filed: 05/06/2024 04:47 Note Text: Surgery resident and ortho resident at bedside. Knee immobilizer placed on pt by ortho resident [facility] ED NOTE HNO ID: [id number] Author: RADHAMES YU RN Service: ? Author Type: Registered Nurse Type: ED Notes Filed: 05/06/2024 04:17 Note Text: CT after Feiba [facility] ED NOTE HNO ID: [id number] Author: RADHAMES YU RN Service: ? Author Type: Registered Nurse Type: ED Notes Filed: 05/06/2024 03:49 Note Text: Pt returned from CT. FUEL CELL REPAIRER with pt at this time [facility] ED NOTE HNO ID: [id number] Author: HEIDY TAVERAS RN Service: ? Author Type: Registered Nurse Type: ED Notes Filed: 05/06/2024 03:38 Note Text: Pharmacy notified, preparing FEIBA at this time. [facility] ED NOTE HNO ID: [id number] Author: RADHAMES YU RN Service: ? Author Type: Registered Nurse Type: ED Notes Filed: 05/06/2024 03:31 Note Text: CT notified [facility] ED NOTE HNO ID: [id number] Author: HEIDY TAVERAS RN Service: ? Author Type: Registered Nurse Type: ED Notes Filed: 05/06/2024 03:20 Note Text: Neurosurgery provider at bedside speaking w daughter / POA. Pt in XR at this time. Normal [facility] ED NOTE HNO ID: [id number] Author: CAROL MOTA RN Service: Nursing Author Type: Registered Nurse Type: ED Notes Filed: 05/06/2024 03:15 Note Text: Report given to ISMAEL Jacobo. Normal [facility] ED NOTE HNO ID: [id number] Author: CAROL MOTA RN Service: Nursing Author Type: Registered Nurse Type: ED Notes Filed: 05/06/2024 02:44 Note Text: XR notified pt is ready for scan. Normal [facility] ED PROV NOTEon 05-06-2024 ED PROV NOTE Normal [facility] ED PROV NOTE Normal [facility] GLOBAL HEMOSTASIS WITH LYSIS on 05-06-2024 Clot Lysis 30 Min post maximum clot amplitude TEG (Bld) [Length fraction] 0.0 % Normal 0.0-2.6 [facility] Comment on above: Order Comment: Speci men Type: BLOOD SPECIMENOrdering Facility: [facility] Address: [address] [place] [address] Performed By: #### T EGLYS ####[facility]ATORYCLIA [id number] [address] [place] Clotting time.extrinsic coagulation system activated Rotational TEG (Bld) 4.5 minutes Low 4.6-9.1 [facility] Comment on above: Order Comment: Speci men Type: BLOOD SPECIMENOrdering Facility: [facility] Address: [address] [place] [address] Performed By: #### T EGLYS ####[facility]ATORYCLIA [id number] [address] Maximum clot firmness.extrinsic coagulation system activated.platelets inhibited Rotational TEG (Bld) [Length] 67.3 mm Normal 52.0-70.0 [facility] Comment on above: Order Comment: Speci men Type: BLOOD SPECIMENOrdering Facility: [facility] Address: [address] [place] [address] Result Comment: 29.3 Performed By: #### T EGLYS ####[facility]ATORYCLIA [id number] [address] [place] THROMBOGRAPH INTERP Normal [facility] Comment on above: Order Comment: Helen rg Type: BLOOD SPECIMENOrdering Facility: [facility] Address: [address] [place] [address] Result Comment: A th romboelastograph (TEG) study [...] manner. Performed By: #### T EGLYS ####[facility]ATORYCLIA [id number] [address] [place] HISTORY PHYSICALon HISTORY PHYSICAL Normal [facility] HISTORY PHYSICAL Normal [facility] Magnesium SerPl-mCncon 05-06 Magnesium [Mass/Vol] 1.8 mg/dL Normal 1.7-2.3 [facility] Comment on above: Order Comment: Helen rg Type: BLOOD SPECIMENOrdering Facility: [facility] Address: [address] [place] [address] Performed By: #### 2 4321-2, 85982-4 ####[facility]ATORYCLIA [id number] [address] Magnesium [Mass/Vol] 0.8 mg/dL Low 1.7-2.3 [facility] Comment on above: Order Comment: Helen rg Type: BLOOD SPECIMENOrdering Facility: [facility] Address: [address] [place] [address] Performed By: #### 1 9123-9, 2777-1, 81995-6 ####[facility]ATORYCLIA [id number] [address] OF [facility] OPERATIVE NOon 05-06-2024 OPERATIVE NO Normal [facility] PT panel Coag (PPP)on 2023 INR Coag (PPP) [Relative time] {INR} Low 0.9-1.3 [facility] Comment on above: Order Comment: Speci men Type: BLOOD SPECIMENOrdering Facility: [facility] Address: [address] [place] [address] Result Comment: Ofelia min K Antagonist (VKA) Therapeutic Range: INR 2 to 3 (Target INR of 2.5)Note: For patients treated with VKA drugs, such as warfarin, the [employer] [place] [employer] 2012 Guideline recommends [...] al. Chest 2012, 141:7S-47SNishimura RA, et al. [facility] 2017, 70: 252-289 Performed By: #### 3 4528-0 ####[facility]ATORYCLIA [id number] [address] [place] PT Coag (PPP) [Time] 9.5 s Low 9.7-13.0 [facility] Comment on above: Order Comment: Speci men Type: BLOOD SPECIMENOrdering Facility: [facility] Address: [address] [place] [address] Performed By: #### 3 4528-0 ####[facility]ATORYCLIA [id number] [place] [address] [place] Partial Thromboplast Timeon 05-06-2024 aPTT Coag (Bld) [Time] 26.8 s Normal 24.1-36.2 [facility] Comment on above: Performed By: #### L 300.4310, L300.3900 #### [facility] [address] [place], [address] Phosphate SerPl-mCncon 05-06 Phosphate [Mass/Vol] 1.7 mg/dL Low 2.7-4.8 [facility] Comment on above: Order Comment: Speci men Type: BLOOD SPECIMENOrdering Facility: [facility] Address: [address] [place] [address] Performed By: #### 1 9123-9, 2777-1, 41641-0 ####[facility] SERVICESCLIA [id number] [address] [place] Prothrombin Time w/INRon INR Coag (PPP) [Relative time] 1.1 {INR} Normal [facility] Comment on above: Performed By: #### L 300.4310, L300.3900 #### [facility] Laboratory [address] [place], [address] PT Coag (PPP) [Time] 14.1 s Normal 11.7-14.9 [facility] Comment on above: Performed By: #### L 300.4310, L300.3900 #### [facility] Laboratory [address] [place], [address] STAPHYLOCOCCUS AUREUS AND MR SA SCREEN, PCR, NASALon 05-06-2024 S. aureus and MRSA panel ANKIT+probe (Nose) Not detected Normal Not Detected [facility] Comment on above: Order Comment: Speci men Type: SWABOrdering Facility: [facility] Address: [address] [place] [address] Performed By: #### S APCR ####[facility] LABORATORYCLIA [id number] [place] [address] [place] TYPE + SCREENon 05-06-2024 ABO O Normal [facility] Comment on above: Order Comment: Speci men Type: BLOOD SPECIMENOrdering Facility: [facility] Address: [address] [place] [address] Performed By: #### T SCR ####[facility] BLOOD BANKCLIA [id number] [place] [id number] [place] Rh Nom (Bld) Positive Normal [facility] Comment on above: Order Comment: Speci men Type: BLOOD SPECIMENOrdering Facility: [facility] Address: [address] [place] [address] Performed By: #### T SCR ####[facility] BLOOD BANKCLIA [id number] [address] [place] TYPE AND SCREEN EXPIRATION 05/09/2024 23:59 Normal [facility] Comment on above: Order Comment: Speci men Type: BLOOD SPECIMENOrdering Facility: [facility] Address: [address] [place] [address] Performed By: #### T SCR ####[facility] BLOOD BANKCLIA [id number] [address] OF [place] XR ANKLE 3V AP/LAT/OBL LTon 05-06-2024 XR ANKLE 3V AP/LAT/OBL LT Normal [facility] XR CHEST 1V FRONTALon 2023 XR CHEST 1V FRONTAL Normal [facility] XR FEMUR 2V AP/LAT LTon XR FEMUR 2V AP/LAT LT Normal [facility] XR HIP 3V PELV+ AP/LAT LTon 05-06-2024 XR HIP 3V PELV+ AP/LAT LT Normal [facility] XR HIP 3V PELV+ AP/LAT RTon 05-06-2024 XR HIP 3V PELV+ AP/LAT RT Normal [facility] aPTT PPPon 05-06-2024 aPTT Coag (PPP) [Time] 27.0 s Normal 23.0-32.4 [facility] Comment on above: Order Comment: Speci men Type: BLOOD SPECIMENOrdering Facility: [facility] Address: [address] [place] [address] Performed By: #### 1 4979-9 ####[facility] LABORATORYCLIA [id number] [place] [address] [place] 25-hydroxyvitamin D3 [Mass/V ol]on 05-05-2024 Interpretation and review of laboratory results Normal [facility] The reference range interval was based on an analysis of samples from healthy adults and may not pertain to children from 0-18 years old. [facility] Absolute neutrophil countOrd ered By: Arden Leger on 05-05-2024 Neutrophils (Bld) [#/Vol] 4.9 10*3/uL 2.0-7.7 [facility] Basophil percentageOrdered B y: Arden Leger on 05-05-2024 Basophils/100 WBC (Bld) 0.6 % 0-1 [facility] Blood urea nitrogen (BUN)/cr eatinine ratioOrdered By: Arden Leger on 05-05-2024 Urea nitrogen/Creatinine [Mass ratio] 29.7 mg/mg High 10-20 [facility] Brain/Head without Contrasto n 05-05-2024 Brain/Head without Contrast [facility] Imaging Services [address] [place], [place] [address] Brain/Head without Contrast MR#: [id number] Acct: [id number] Name: MIRIAM DAVENPORT Rep #: [id number] : 1940 F 84 From: Raj Moody MD PCP: Dr. Guillaume Dominguez MD Status: REG ER Study: Brain/Head without Contrast Date of Exam: 11/21 Exam# [id number] Ordering Dr: Arden Leger MD ADDENDUM by Dr. Raj Moody MD on 05/06/24 at 0002 [id number] EXAM: CT HEAD WITHOUT INTRAVENOUS CONTRAST CLINICAL [...] Dominguez MD * Signed ADDENDUM by Dr. Rja Moody MD on 05/06/[address]/Brain/Head [...] be sent when the communication is complete. [id number] EXAM: CT HEAD WITHOUT INTRAVENOUS CONTRAST CLINICAL [...] the rig (more content not included)... Normal [facility] CBC panel Auto (Bld)on 05-05 Erythrocyte distribution width (RBC) [Ratio] 16.0 % High 11.5 - 15.0 % [facility] Hematocrit (Bld) [Volume fraction] 38.2 % 36.0 - 46.0 % [facility] Hemoglobin (Bld) [Mass/Vol] 12.1 g/dL 11.5 - 15.5 g/dL [facility] Interpretation and review of laboratory results Abnormal [facility] MCH (RBC) [Entitic mass] 28.8 pg 26.0 - 34.0 pg [facility] MCHC (RBC) [Mass/Vol] 31.7 g/dL 30.5 - 36.0 g/dL [facility] MCV (RBC) [Entitic vol] 91.0 fL 80.0 - 100.0 fL [facility] Nucleated RBC (Bld) [#/Vol] NINF [facility] Platelet mean volume (Bld) [Entitic vol] 10.0 fL 9.0 - 12.7 fL [facility] Platelets (Bld) [#/Vol] 362 10*3/uL [facility] RBC (Bld) [#/Vol] 4.20 10*6/uL 3.90 - 5.2 0 m/uL [facility] WBC (Bld) [#/Vol] 6.62 10*3/uL [facility] Carbon dioxide measurementOr dered By: Arden Leger on 05-05-2024 CO2 [Moles/Vol] 24.0 mmol/L 21.0-32.0 [facility] Chloride measurementOrdered By: Arden Leger on 05-05-2024 Chloride [Moles/Vol] 109 mmol/L High 98-107 [facility] Cobalamin (Vitamin B12) [Mas s/Vol]on 05-05-2024 Interpretation and review of laboratory results Normal [facility] Comprehensive metabolic 2000 panelOrdered By: Hayley Mark on 05-05-2024 Albumin [Mass/Vol] 3.6 g/dL Low 3.9 - 4.9 g/dL [facility] ALP [Catalytic activity/Vol] 147 U/L High 34 - 123 U/L [facility] ALT [Catalytic activity/Vol] 9 U/L 7 - 38 U/L [facility] Anion gap [Moles/Vol] 14 mmol/L 8 - 15 mmol/L [facility] AST [Catalytic activity/Vol] 15 U/L 13 - 35 U/L [facility] Bilirubin [Mass/Vol] 0.2 mg/dL 0.2 - 1 .3 mg/dL [facility] Calcium [Mass/Vol] 9.7 mg/dL 8.5 - 10. 2 mg/dL [facility] Chloride [Moles/Vol] 102 mmol/L 98 - 10 7 mmol/L [facility] CO2 [Moles/Vol] 22 mmol/L 22 - 30 mmol/L [facility] Creatinine [Mass/Vol] 0.59 mg/dL 0.58 - 0.96 mg/dL [facility] GFR/1.73 sq M.predicted among non-blacks MDRD (S/P/Bld) [Vol rate/Area] 90 mL/min/{1.73_m2} - PINF [facility] Comment on above: Estimated Glomerular Filtration [...] mg/dL High 74 - 99 mg/dL [facility] Comment on above: The [place] Diabete s Association (ADA) provides guidance for [...] Standards of Medical Care in Diabetes 2016, [place] [employer]. Diabetes Care. 2016.39(Suppl 1). Interpretation and review of laboratory results Abnormal [facility] Potassium [Moles/Vol] 3.8 mmol/L 3.7 - 5.1 mmol/L [facility] Protein [Mass/Vol] 6.8 g/dL 6.3 - 8.0 g/dL [facility] Sodium [Moles/Vol] 138 mmol/L 136 - 144 mmol/L [facility] Urea nitrogen [Mass/Vol] 18 mg/dL 7 - 21 mg/dL [facility] Emergency Department Summary on 05-05-2024 Emergency Department Summary [facility] Medical Records Department [address] [place] [address] Emergency Department Summary 05/05/24 MR#: [id number] Acct: [id number] Name: MIRIAM DAVENPORT Rep #: [id number] : 1940 84 From: Arden Leger MD [...] time in the [facility], then went to [facility]. She recently went back to assisted living [...] that she is the patient's power of contract attorney and makes all her decisions because of the dementia. She states that her mother has multiple allergies, but morphine would be the most effective in treating her pain given her multiple allergies. [facility] Medical History History of pernicious anemia History [...] Status D (more content not included)... Normal [facility] Eosinophil percentageOrdered By: Arden Leger on 05-05-2024 Eosinophils/100 WBC (Bld) 2.6 % 0-5 [facility] Erythrocyte distribution wid th (RBC) [Ratio]Ordered By: Arden Leger on 05-05-2024 Erythrocyte distribution width (RBC) [Entitic vol] 54.1 fL High 35.1-43.9 [facility] Erythrocyte distribution wid th ratioOrdered By: Arden Leger on 05-05-2024 Erythrocyte distribution width (RBC) [Ratio] 15.9 % High 11.6-14.6 [facility] Estimated glomerular filtrat ion rate (GFR) AmericanOrdered By: Arden Leger on 05-05-2024 Estimated GFR (MDRD) Amer 130 mL/min >60 [facility] Comment on above: GFR Calc Estimation of creatinine gin aranceOrdered By: Arden Leger on 05-05-2024 Estimated Creatinine Clearance Calc 60.00 ml/min [facility] Glomerular filtration rate ( GFR) estimationOrdered By: Arden Leger on 05-05-2024 Estimated GFR (MDRD) Non-Af Amer 107 mL/min >60 [facility] Comment on above: Non- GFR Calc Glucose measurementOrdered B y: Arden Leger on 05-05-2024 Glucose [Mass/Vol] 134 mg/dL High 74-106 [facility] Comment on above: Fasting Glucose resu lt greater than or equal to 126 mg/dL suggests DIABETES MELLITUS per A.D.A. criteria. Hematocrit Auto (Bld) [Volum e fraction]Ordered By: Arden Leger on 05-05-2024 Hematocrit (Bld) [Volume fraction] 36.9 % Low 37-47 [facility] Hemoglobin measurementOrdere d By: Arden Leger on 05-05-2024 Hemoglobin (Bld) [Mass/Vol] 11.4 g/dL Low 12.0-15.0 [facility] Immature granulocytes/100 WB C Auto (Bld)Ordered By: Arden Leger on 05-05-2024 Immature granulocytes/100 WBC (Bld) 1.500 % High 0.0-0.9 [facility] Comment on above: IG% - Immature Granu locytes (promyelocytes, myelocytes and metamyelocytes) > 1% indicates that a LEFT SHIFT is Present. International normalized rat io (INR) calculationOrdered By: Arden Leger on 05-05-2024 INR Coag (Bld) [Relative time] 1.1 {INR} [facility] Lymphocytes Auto (Unsp spec) [#/Vol]Ordered By: Arden Leger on 05-05-2024 Lymphocytes (Bld) [#/Vol] 1.89 10*3/uL 0.83-4.51 [facility] Lymphocytes/100 WBC Auto (Un sp spec)Ordered By: Arden Leger on 05-05-2024 Lymphocytes/100 WBC (Bld) 23.6 % 19-41 [facility] MCV (mean corpuscular volume ) determinationOrdered By: Arden Leger on 05-05-2024 MCV (RBC) [Entitic vol] 92.5 fL 81-99 [facility] Mean corpuscular hemoglobin (MCH) determinationOrdered By: Arden Leger on 05-05-2024 MCH (RBC) [Entitic mass] 28.6 pg 27.0-32.0 [facility] Mean corpuscular hemoglobin concentration (MCHC) determinationOrdered By: Arden Leger on 05-05-2024 MCHC (RBC) [Mass/Vol] 30.9 g/dL Low 32-36 [facility] Mean platelet volume determi nationOrdered By: Arden Leger on 05-05-2024 Platelet mean volume (Bld) [Entitic vol] 10.7 fL 6.2-12.0 [facility] Monocyte percentageOrdered B y: Arden Leger on 05-05-2024 Monocytes/100 WBC (Bld) 10.4 % High 0-10 [facility] Neutrophil percentageOrdered By: Arden Leger on 05-05-2024 Neutrophils/100 WBC (Bld) 61.3 % 47-70 [facility] Nucleated red blood cell per centageOrdered By: Arden Leger on 05-05-2024 Nucleated RBC/100 WBC (Bld) [Ratio] 0 % 0-5 [facility] Platelet countOrdered By: Hilton Leger on 05-05-2024 Platelets (Bld) [#/Vol] 373 10*3/uL 150-450 [facility] Potassium measurementOrdered By: Arden Leger on 05-05-2024 Potassium [Moles/Vol] 3.6 mmol/L 3.5-5.1 [facility] Comment on above: Slight Hemolysis, Re sult may be falsely increased. Prothrombin timeOrdered By: Arden Leger on 05-05-2024 PT Coag (PPP) [Time] 14.1 s 11.7-14.9 [facility] RBC Auto (Bld) [#/Vol]Ordere d By: Arden Leger on 05-05-2024 RBC (Bld) [#/Vol] 3.99 10*6/uL Low 4.2-5.4 [facility] Serum anion gap measurementO rdered By: Arden Leger on 05-05-2024 Anion gap [Moles/Vol] 7 mmol/L 5-15 [facility] Serum or plasma calcium jessi urement (mass/volume)Ordered By: Arden Leger on 05-05-2024 Calcium [Mass/Vol] 8.6 mg/dL 8.5-10.1 [facility] Serum or plasma creatinine m easurement (mass/volume)Ordered By: Arden Leger on 05-05-2024 Creatinine [Mass/Vol] 0.57 mg/dL 0.55-1.02 [facility] Comment on above: The validity of the calculated GFR & GFRAA in patients over 70 years has not been determined. Clinical correlation is essential. Serum or plasma urea nitroge n measurement (mass/volume)Ordered By: Arden Leger on 05-05-2024 Urea nitrogen [Mass/Vol] 17 mg/dL 7-18 [facility] Sodium levelOrdered By: Arden Leger on 05-05-2024 Sodium [Moles/Vol] 140 mmol/L 136-145 [facility] Spine Cervical without Contr ason 05-05-[address] [facility] Imaging Services [address] [place] [address] Spine Cervical without Contras MR#: [id number] Acct: [id number] Name: MIRIAM DAVENPORT Rep #: [id number] : 1940 F 84 From: Raj Moody MD PCP: Dr. Guillaume Dominguez MD Status: PRE ER Study: Spine Cervical without Contras Date of Exam: 07/06/23 Exam# [id number] Ordering Dr: [place] [id number] EXAM: CT CERVICAL SPINE WITHOUT INTRAVENOUS CONTRAST [...] Arden Leger MD; Dr. 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 Imaging Services [address] [place] [address] [id number] Spine Lumbar without Contrast MR#: [id number] Acct: [id number] Name: MIRIAM DAVENPORT Rep #: [id number] : 1940 F 84 From: Raj Moody MD PCP: Dr. Guillaume Dominguez MD Status: PRE ER Study: Spine Lumbar without Contrast Date of Exam: Exam# [id number] Ordering Dr: [place] [id number] EXAM: CT LUMBAR SPINE WITHOUT INTRAVENOUS CONTRAST [...] Arden Leger MD; Dr. Guillaume Dominguez MD Homic[employer] Lieutenant: Signed Normal [facility] Spine Thoracic without Contr ason 05-05-[address] [facility] Imaging Services [address] [place] [address]761 Spine Thoracic without Contras MR#: [id number] Acct: [id number] Name: MIRIAM DAVENPORT Rep #: [id number] : 1940 F 84 From: Raj Moody MD PCP: Dr. Guillaume Dominguez MD Status: PRE ER Study: Spine Thoracic without Contras Date of Exam: 07/06/23 Exam# [id number] Ordering [place]: [place] [id number] EXAM: CT THORACIC SPINE WITHOUT INTRAVENOUS CONTRAST [...] Arden Leger MD; Dr. Guillaume Dominguez MD Homic[employer] Lieutenant: Signed Normal [facility] Urinalysis, Completeon 05-05 BACTERIA Normal None Seen [facility] Comment on above: Order Comment: 303-2 Result Comment: PT D ISCHARGED Performed By: #### L 503.0106, L501.9985 #### [facility] Laboratory [address] [place], [address] BILIRUBIN URINE Normal Negative [facility] Comment on above: Order Comment: 303- Result Comment: PT D ISCHARGED Performed By: #### L 503.0106, L501.9985 #### [facility] Laboratory [address] [place], [address] Clarity (U) Normal Clear [facility] Comment on above: Order Comment: 303-2 Result Comment: PT D ISCHARGED Performed By: #### L 503.0106, L501.9985 #### [facility] Laboratory [address] [place], [address] Color (U) Normal Yellow [facility] Comment on above: Order Comment: 303-2 Result Comment: PT D ISCHARGED Performed By: #### L 503.0106, L501.9985 #### [facility] [address] [place], [address] EPI,SQUAMOUS Normal 5-10 [facility] Comment on above: Order Comment: 303-2 Result Comment: PT D ISCHARGED Performed By: #### L 503.0106, L501.85 #### [facility] [address] [place], [address] GLUCOSE, UR Normal Normal [facility] Comment on above: Order Comment: 303-2 Result Comment: PT D ISCHARGED Performed By: #### L 503.0106, L501.85 #### [facility] [address] [place], [address] KETONE UR Normal Negative [facility] Comment on above: Order Comment: 303-2 Result Comment: PT D ISCHARGED Performed By: #### L 503.0106, L501.85 #### [facility] [address] [place], [address] LEUK ESTERASE Normal Negative [facility] Comment on above: Order Comment: 303-2 Result Comment: PT D ISCHARGED Performed By: #### L 503.0106, L501.85 #### [facility] [address] [place], [address] Mucus Ql (Urine sed) Normal [facility] Comment on above: Order Comment: 303-2 Result Comment: PT D ISCHARGED Performed By: #### L 503.0106, L501.85 #### [facility] [address] [place], [address] Nitrite Ql (U) Normal Negative [facility] Comment on above: Order Comment: 303-2 Result Comment: PT D ISCHARGED Performed By: #### L 503.0106, L501.85 #### [facility] [address] [place], [address] OCCULT BLOOD-UR Normal Negative [facility] Comment on above: Order Comment: 303-2 Result Comment: PT D ISCHARGED Performed By: #### L 503.0106, L5.85 #### [facility] [address] [place], [address] pH UR Normal 5.0 - 8.0 [facility] Comment on above: Order Comment: Result Comment: PT D ISCHARGED Performed By: #### L 503.0106, L501.9985 #### [facility] [address] [place], [address] PROT DIPSTX Normal Negative [facility] Comment on above: Order Comment: Result Comment: PT D ISCHARGED Performed By: #### L 503.0106, L501.9985 #### [facility] [address] [place], [address] RBC Normal 0-5 [facility] Comment on above: Order Comment: Result Comment: PT D ISCHARGED Performed By: #### L 503.0106, L501.9985 #### [facility] [address] [place], [address] SP.GR. DIPSTX Normal 1.002-1.030 [facility] Comment on above: Order Comment: Result Comment: PT D ISCHARGED Performed By: #### L 503.0106, L501.9985 #### [facility] [address] [place], [address] UR Preservative Normal [facility] Comment on above: Order Comment: Result Comment: PT D ISCHARGED Performed By: #### L 503.0106, L501.9985 #### [facility] [address] [place], [address] UROBILI Normal Normal [facility] Comment on above: Order Comment: Result Comment: PT D ISCHARGED Performed By: #### L 503.0106, L501.9985 #### [facility] [address] [place], [address] WBC Normal 0-5 [facility] Comment on above: Order Comment: 303-2 Result Comment: PT D ISCHARGED Performed By: #### L 503.0106, L501.9985 #### [facility] [address] [place], [address] VITAMIN B12on 05-05-2024 Cobalamin (Vitamin B12) [Mass/Vol] 473 pg/mL 232 - 1245 pg/mL [facility] VITAMIN D 25 HYDROXYon 05-05 25-hydroxyvitamin D3 [Mass/Vol] 58.3 ng/mL 31.0 - 80.0 ng/mL [facility] Comment on above: Classification of 25 [place] Vitamin D status: Deficiency/Insufficiency: < or = 30 ng/ml. Sufficiency/Optimal Levels: 31-80 ng/mL Toxicity: > 100 ng/mL. Test performed by chemiluminescent immunoassay. 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 per TELECOMMUNICATIONS OFFICER outside facility Apr 1997 MORBID OBESITY 08/18/2007 Obstructive sleep apnea Sleep study 2003 Occlusion and stenosis of carotid artery without mention of cerebral infarction 03/09/2006 mild stenosis shown on u/s at [facility] u/s repeated 02/02/07 with no change [...] DATE: March 30, 2024 TIME: 7:05 AM [facility] OPERATIVE NOon 03-30-2024 OPERATIVE NO HNO ID: [id number] Author: MORAIMA MONTELONGO MD Service: Pain Management Author Type: Physician Type: Operative Report Filed: 03/30/2024 08:12 Note Text: PATIENT NAME: Miriam Davenport SERVICE DATE: 03/30/2024 PROCEDURE NOTE PREOPERATIVE DIAGNOSIS(ES) Lumbar radiculopathy Lumbar disc displacement Lumbar canal stenosis without neurogenic claudication Lumbar DDD POSTOPERATIVE DIAGNOSIS(ES): Same PROCEDURE: Left L4-5 lumbar transforaminal epidural steroid injection under fluoroscopy. Hydroelectric Machinery Mechanic Helper(s): None, I performed the entire procedure. ANESTHESIA: [...] March 30, 2024 TIME: 8:12 AM Normal [facility] ABSCESS AND WOUND CULTURE WI TH GRAM STAINon 08-02-2023 Bacteria identified Cx Nom (Wound) Few Pseudomonas aeruginosa Abnormal [facility] Bacteria identified Cx Nom (Wound) Few Escherichia coli Abnormal [facility] Bacteria identified Cx Nom (Wound) Few skin kj [facility] Bacteria identified Cx Nom ( Wound)on 08-02-2023 Microscopic observation Smear Nom (Unsp spec) Negative Abnormal [facility] Microscopic observation Smear Nom (Unsp spec) Positive Abnormal [facility] Microscopic observation Smear Nom (Unsp spec) No Polymorphonuclear Leukocytes Abnormal [facility] FUNGAL SCREENon 08-01-2023 Fungus identified Cx Nom (Unsp spec) Rare Damian glabrata Abnormal [facility] ABSCESS AND WOUND CULTURE WI TH GRAM STAINon 07-29-2023 Bacteria identified Cx Nom (Wound) Invalid Interpretation Code [facility] DBT Breast - right diagnosti c for implanton 07-21-2023 [facility] Absolute lymphocyte countOrd ered By: Kerwin Kumar on 06-12-2023 Lymphocytes Auto (Unsp spec) [#/Vol] 0.80 10*3/uL 0.83-4.51 [facility] Basophil percentageOrdered B y: Kerwin Kumar on 06-12-2023 Basophil percentage 0-5 SEEN /hpf 0-5 [facility] Basophils/100 WBC (Bld) 0.4 % 0-1 [facility] Chloride [Moles/Vol] 99 mmol/L 98-107 [facility] Eosinophils/100 WBC (Bld) 0.0 % 0-5 [facility] Glucose [Mass/Vol] 268 mg/dL 74-106 [facility] Comment on above: Glucose result great er than or equal to 200 mg/dLsuggests DIABETES MELLITUS per A.D.A. criteria. Neutrophils (Bld) [#/Vol] 13.7 10*3/uL 2.0-7.7 [facility] Neutrophils/100 WBC (Bld) 86.2 % 47-70 [facility] Potassium [Moles/Vol] 3.8 mmol/L 3.5-5.1 [facility] [facility] Sodium [Moles/Vol] 132 mmol/L 136-145 [facility] WBC (Bld) [#/Vol] 15.9 10*3/uL 4.4-11.0 [facility] Bilirubin Test strip Ql (U)O rdered By: Kerwin Kumar on 06-12-2023 Bilirubin Ql (U) Negative Negative [facility] Blood erythrocytes count (nu mber/volume)Ordered By: Kerwin Kumar on 06-12-2023 RBC (Bld) [#/Vol] 4.54 10*6/uL 4.2-5.4 [facility] Blood hemoglobin measurement (mass/volume)Ordered By: Kerwin Kumar on 06-12-2023 Hemoglobin (Bld) [Mass/Vol] 12.8 g/dL 12.0-15.0 [facility] Blood lymphocytes/100 leukoc ytesOrdered By: Kerwin Kumar on 06-12-2023 Lymphocytes/100 WBC (Bld) 5.0 % 19-41 [facility] Blood monocytes/100 leukocyt esOrdered By: Kerwin Kumar on 06-12-2023 Monocytes/100 WBC (Bld) 7.8 % 0-10 [facility] Blood platelet mean volumeOr dered By: Kerwin Kumar on 06-12-2023 Platelet mean volume (Bld) [Entitic vol] 10.7 fL 6.2-12.0 [facility] Determination of erythrocyte mean corpuscular volume (MCV)Ordered By: Kerwin Kumar on 06-12-2023 MCV (RBC) [Entitic vol] 90.3 fL 81-99 [facility] Hematocrit Auto (Bld) [Volum e fraction]Ordered By: Kerwin Kumar on 06-12-2023 Hematocrit (Bld) [Volume fraction] 41.0 % 37-47 [facility] Ketones Test strip Ql (U)Ord ered By: Kerwin Kumar on 06-12-2023 Ketones Ql (U) 50 mg/dl Negative [facility] Laboratory - Chemistry and C hemistry - challengeOrdered By: Kerwin Kumar on 06-12-2023 CO2 [Moles/Vol] 25.0 mmol/L 21.0-32.0 [facility] Urea nitrogen/Creatinine [Mass ratio] 17.5 mg/mg 10-20 [facility] Laboratory - Hematology and Cell countsOrdered By: Kerwin Kumar on 06-12-2023 Erythrocyte distribution width (RBC) [Entitic vol] 48.2 fL 35.1-43.9 [facility] Erythrocyte distribution width (RBC) [Ratio] 14.6 % 11.6-14.6 [facility] Immature granulocytes/100 WBC (Bld) 0.600 % 0.0-0.9 [facility] Comment on above: IG% - Immature Granu locytes (promyelocytes, myelocytes and metamyelocytes) > 1% indicates that a LEFT SHIFT is Present. MCH (RBC) [Entitic mass] 28.2 pg 27.0-32.0 [facility] Nucleated RBC/100 WBC (Bld) [Ratio] 0 % 0-5 [facility] MCHC Auto (RBC) [Mass/Vol]Or dered By: Kerwin Kumar on 06-12-2023 MCHC (RBC) [Mass/Vol] 31.2 g/dL 32-36 [facility] Mucus LM Ql (Urine sed)Order ed By: Kerwin Kumar on 06-12-2023 Mucus Ql (Urine sed) 0 SEEN /hpf [facility] Nitrite Test strip Ql (U)Ord ered By: Kerwin Kumar on 06-12-2023 Nitrite Ql (U) Positive Negative [facility] No Panel InformationOrdered By: Kerwin Kumar on 06-12-2023 Estimated Creatinine Clearance Calc 65.91 ml/min [facility] Estimated GFR (MDRD) Amer 88 mL/min >60 [facility] Comment on above: GFR Calc Estimated GFR (MDRD) Non-Af Amer 73 mL/min >60 [facility] Comment on above: Non- GFR Calc Platelets bldOrdered By: Ami Kumar on 06-12-2023 Platelets (Bld) [#/Vol] 309 10*3/uL 150-450 [facility] Protein Test strip Ql (U)Ord ered By: Kerwin Kumar on 06-12-2023 Protein Ql (U) 30 mg/dl Negative [facility] Serum or plasma calcium jessi urement (mass/volume)Ordered By: Kerwin Kumar on 06-12-2023 Calcium [Mass/Vol] 9.1 mg/dL 8.5-10.1 [facility] Serum or plasma creatinine m easurement (mass/volume)Ordered By: Kerwin Kumar on 06-12-2023 Creatinine [Mass/Vol] 0.80 mg/dL 0.55-1.02 [facility] Comment on above: The validity of the calculated GFR & GFRAA in patients over 70 years has not been determined. Clinical correlation is essential. Serum or plasma urea nitroge n measurement (mass/volume)Ordered By: Kerwin Kumar on 06-12-2023 Urea nitrogen [Mass/Vol] 14 mg/dL 7-18 [facility] Squamous epithelial cells de tection in urine sediment by light microscopyOrdered By: Kerwin Kumar on 06-12-2023 Epithelial cells.squamous LM Ql (Urine sed) 0-5 SEEN /hpf 5-10 [facility] Thin prep Papanicolaou smear with manual screeningOrdered By: Kerwin Kumar on 06-12-2023 Thin prep Papanicolaou smear with manual screening 8 5-15 [facility] Urine blood detectionOrdered By: Kerwin Kumar on 06-12-2023 RBC Ql (U) 150 /ul Negative [facility] RBC Ql (U) 0-5 SEEN /hpf 0-5 [facility] Urine clarityOrdered By: Ami Kumar on 06-12-2023 Clarity (U) Clear Clear [facility] Urine color determinationOrd ered By: Kerwin Kumar on 06-12-2023 Color (U) Yellow Yellow [facility] Urine glucose detectionOrder ed By: Kerwin Kumar on 06-12-2023 Glucose Ql (U) 50 mg/dl Normal [facility] Urine leukocyte esterase det ection by dipstickOrdered By: Kerwin Kumar on 06-12-2023 Leukocyte esterase Test strip Ql (U) 100 /ul Negative [facility] Urine pHOrdered By: Kerwin espinoza on 06-12-2023 pH (U) 6.0 [pH] 5.0 - 8.0 [facility] Urine sediment bacteria coun t by microscopy (number/high power field)Ordered By: Kerwin Kumar on 06-12-2023 Bacteria LM.HPF (Urine sed) [#/Area] 2 /[HPF] None Seen [facility] Urine specific gravity measu rementOrdered By: Kerwin Kumar on 06-12-2023 Specific gravity (U) [Rel density] 1.015 1.002-1.030 [facility] Urobilinogen Auto test strip Ql (U)Ordered By: Kerwin Kumar on 06-12-2023 Urobilinogen Ql (U) Normal mg/dl Normal [facility] NM CARDIAC PERF STRESS/PHARM on 01-28-2023 [facility] HEMOGLOBIN A1C (POC)on 12-30 HbA1c (Bld) [Mass fraction] 7.0 % Abnormal 4.2 - 5.6 % [facility] XR ABDOMEN 1V SUPINEon 09-23 [facility] ECG COMPLETEon 08-18-2022 Atrial Rate 96 BPM [facility] Calculated P Bartlett 28 degrees [facility] Calculated R Bartlett -16 degrees [facility] Calculated T Bartlett 5 degrees [facility] P-R Interval 180 ms [facility] QRS Duration 78 ms [facility] QT Interval 354 ms [facility] QTC Calculation (Bazett) 447 ms [facility] Ventricular Rate 96 BPM [facility] UA DIP, URINE (POC)on 2022 BILIRUBIN UA (POCT) Negative Negative [facility] CLARITY UA (POCT) Slightly Cloudy Cl [facility] COLOR UA (POCT) Dark yellow [facility] GLUCOSE UA (POCT) Negative Negative mg/dL [facility] HEMOGLOBIN/BLOOD UA (POCT) Large Abnormal Negative [facility] KETONE UA (POCT) Negative Negative mg/dL [facility] LEUKOCYTES UA (POCT) Trace Abnormal Negative [facility] NITRITE UA (POCT) Negative Negative [facility] PH UA (POCT) 5.5 4.5 - 8.0 [facility] Protein Ql (U) 100 mg/dL Abnormal Negative mg/dL [facility] SPECIFIC GRAVITY UA (POCT) >=1.030 1.005 - 1.030 [facility] UROBILINOGEN UA (POCT) 0.2 E.U./dL Kasia l E.U./dL [facility] XR DIGIT GENERAL 3V FRONTAL/ LAT/OBL RIGHTon 05-06-2022 [facility] XR Finger - right AP and Lat eral and obliqueon 05-06-2022 IMPRESSION: Acute, comminuted fracture of the third distal phalanx subungual tuft. 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 DIVISION OF RADIOLOGY Provider, Patsy Watson [facility] - 05/06/2022 * * *Final Report* [...] of the third distal phalanx subungual tuft. 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 Transcribe Date/Time: May 06 2022 4:13P Dictated by : ORIN BEAL MD This examination was interpreted and the report reviewed and electronically signed by: ORIN BEAL MD on May 06 2022 4:15PM EST [facility] Radiology Study observation (narrative) [facility] XR Finger - right AP and Lat eral and obliqueOrdered By: Ccf Provider on 05-06-2022 [facility] CBC panel Auto (Bld)on 04-27 Erythrocyte distribution width (RBC) [Ratio] 14.6 % 11.5 - 15.0 % [facility] Hematocrit (Bld) [Volume fraction] 40.6 % 36.0 - 46.0 % [facility] Hemoglobin (Bld) [Mass/Vol] 12.8 g/dL 11.5 - 15.5 g/dL [facility] MCH (RBC) [Entitic mass] 30.0 pg 26.0 - 34.0 pg [facility] MCHC (RBC) [Mass/Vol] 31.5 g/dL 30.5 - 36.0 g/dL [facility] MCV (RBC) [Entitic vol] 95.1 fL 80.0 - 100.0 fL [facility] Nucleated RBC (Bld) [#/Vol] <0.01 k/uL [facility] Platelet mean volume (Bld) [Entitic vol] 10.7 fL 9.0 - 12.7 fL [facility] Platelets (Bld) [#/Vol] 341 10*3/uL 150 - 400 k/uL [facility] RBC (Bld) [#/Vol] 4.27 10*6/uL 3.90 - 5.2 0 m/uL [facility] WBC (Bld) [#/Vol] 9.20 10*3/uL 3.70 - 11.00 k/uL [facility] XR Abdomen Supine and Uprigh ton 04-08-2022 IMPRESSION: 0.9 x 1.8 cm oblong calculus projects over the expected location of the left renal pelvis. 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 DIVISION OF RADIOLOGY Provider[facility] 04/08/[facility]22 * * *Final Report* [...] expected location of the left renal pelvis. 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 Transcribe Date/Time: Apr 08 2022 4:40P Dictated by : ORIN BEAL MD This examination was interpreted and the report reviewed and electronically signed by: ORIN BEAL MD on Apr 08 2022 4:41PM EST [facility] Radiology Study observation (narrative) [facility] XR Abdomen Supine and Uprigh tOrdered By: Ccf Provider on 04-08-2022 [facility] Bacteria identified Cx Nom ( Wound)on 03-07-2022 Microscopic observation Smear Nom (Unsp spec) Negative Abnormal [facility] Microscopic observation Smear Nom (Unsp spec) Rare Polymorphonuclear leukocytes Abnormal [facility] WOUND CULTURE AND GRAM STAIN on 03-07-2022 Bacteria identified Cx Nom (Wound) Moderate Klebsiella pneumoniae Abnormal [facility] Bacteria identified Cx Nom (Wound) Few Normal urogenital kj Abnormal [facility] EXTRA SWAB CONTAINER PERFORM ABLEon 03-04-2022 [facility] WOUND CULTURE AND GRAM STAIN on 03-04-2022 Bacteria identified Cx Nom (Wound) Invalid Interpretation Code [facility] Absolute lymphocyte counton 02-28-2022 Lymphocytes Auto (Unsp spec) [#/Vol] 1.71 10*3/uL 0.83-4.51 [facility] Work Phone: Basophil percentageon 2021 Basophils/100 WBC (Bld) 0.6 % 0-1 [facility] Work Phone: Bilirubin [Mass/Vol] 0.40 mg/dL 0.20-1.00 [facility] Work Phone: Comment on above: For patients on eltr ombopag therapy, use of Dimension Devol TBIL is not recommended. Chloride [Moles/Vol] 103 mmol/L 98-107 [facility] Work Phone: Eosinophils/100 WBC (Bld) 0.9 % 0-5 [facility] Work Phone: Glucose [Mass/Vol] 151 mg/dL 74-106 [facility] Work Phone: Comment on above: Fasting Glucose resu lt greater than or equal to 126 mg/dL suggests DIABETES MELLITUS per A.D.A. criteria. Neutrophils (Bld) [#/Vol] 9.1 10*3/uL 2.0-7.7 [facility] Work Phone: Neutrophils/100 WBC (Bld) 74.8 % 47-70 [facility] Work Phone: Potassium [Moles/Vol] 3.9 mmol/L 3.5-5.1 [facility] Work Phone: Protein [Mass/Vol] 7.7 g/dL 6.4-8.2 [facility] Work Phone: Sodium [Moles/Vol] 139 mmol/L 136-145 [facility] Work Phone: WBC (Bld) [#/Vol] 12.2 10*3/uL 4.4-11.0 [facility] Work Phone: Blood erythrocytes count (nu mber/volume)on 02-28-2022 RBC (Bld) [#/Vol] 4.82 10*6/uL 4.2-5.4 [facility] Work Phone: Blood hemoglobin measurement (mass/volume)on 02-28-2022 Hemoglobin (Bld) [Mass/Vol] 14.7 g/dL 12.0-15.0 [facility] Work Phone: Blood lymphocytes/100 leukoc yteson 02-28-2022 Lymphocytes/100 WBC (Bld) 14.1 % 19-41 [facility] Work Phone: Blood monocytes/100 leukocyt eson 02-28-2022 Monocytes/100 WBC (Bld) 9.1 % 0-10 [facility] Work Phone: [phone] Blood platelet mean volumeon 02-28-2022 Platelet mean volume (Bld) [Entitic vol] 11.0 fL 6.2-12.0 [facility] Work Phone: [phone] Determination of erythrocyte mean corpuscular volume (MCV)on 02-28-2022 MCV (RBC) [Entitic vol] 95.6 fL 81-99 [facility] Work Phone: [phone] Direct bilirubinon Bilirubin.direct [Mass/Vol] 0.09 mg/dL 0.00-0.30 [facility] Work Phone: [phone] Glucose Glucometer (BldC) [M ass/Vol]on 02-28-2022 Glucose [Mass/Vol] 146 mg/dL 74-106 [facility] Work Phone: [phone] Comment on above: MANAGEMENT OF PATIEN T CARE PER NURSING PROTOCOL Hematocrit Auto (Bld) [Volum e fraction]on 02-28-2022 Hematocrit (Bld) [Volume fraction] 46.1 % 37-47 [facility] Work Phone: [phone] Laboratory - Chemistry and C hemistry - challengeon 02-28-2022 ALP [Catalytic activity/Vol] 115 U/L 45-117 [facility] Work Phone: [phone] ALT [Catalytic activity/Vol] 15 U/L 13-56 [facility] Work Phone: [phone] CO2 [Moles/Vol] 29.0 mmol/L 21.0-32.0 [facility] Work Phone: [phone] Globulin (S) [Mass/Vol] 4.8 g/dL 2.2-4.2 [facility] Work Phone: [phone] Lipase [Catalytic activity/Vol] 74 U/L 73-393 [facility] Work Phone: [phone] Urea nitrogen/Creatinine [Mass ratio] 21.1 mg/mg 10-20 [facility] Work Phone: [phone] Laboratory - Hematology and Cell countson 02-28-2022 Erythrocyte distribution width (RBC) [Entitic vol] 49.0 fL 35.1-43.9 [facility] Work Phone: [phone] Erythrocyte distribution width (RBC) [Ratio] 13.9 % 11.6-14.6 [facility] Work Phone: [phone] Immature granulocytes/100 WBC (Bld) 0.500 % 0.0-0.9 [facility] Work Phone: [phone] Comment on above: IG% - Immature Granu locytes (promyelocytes, myelocytes and metamyelocytes) > 1% indicates that a LEFT SHIFT is Present. MCH (RBC) [Entitic mass] 30.5 pg 27.0-32.0 [facility] Work Phone: [phone] Nucleated RBC/100 WBC (Bld) [Ratio] 0 % 0-5 [facility] Work Phone: [phone] MCHC Auto (RBC) [Mass/Vol]on 02-28-2022 MCHC (RBC) [Mass/Vol] 31.9 g/dL 32-36 [facility] Work Phone: [phone] Panel Informationon 02-28 Estimated Creatinine Clearance Calc 42.00 ml/min [facility] Work Phone: [phone] Estimated GFR (MDRD) Amer 94 mL/min >60 [facility] Work Phone: [phone] Comment on above: GFR Calc Estimated GFR (MDRD) Non-Af Amer 78 mL/min >60 [facility] Work Phone: [phone] Comment on above: Non- GFR Calc Platelets bldon 02-28-2022 Platelets (Bld) [#/Vol] 311 10*3/uL 150-450 [facility] Work Phone: [phone] Serum or plasma albumin jessi urement (mass/volume)on 02-28-2022 Albumin [Mass/Vol] 2.9 g/dL 3.2-5.0 [facility] Work Phone: Serum or plasma calcium jessi urement (mass/volume)on 02-28-2022 Calcium [Mass/Vol] 9.2 mg/dL 8.5-10.1 [facility] Work Phone: Serum or plasma creatinine m easurement (mass/volume)on 02-28-2022 Creatinine [Mass/Vol] 0.76 mg/dL 0.55-1.02 [facility] Work Phone: [phone] Comment on above: The validity of the calculated GFR & GFRAA in patients over 70 years has not been determined. Clinical correlation is essential. Serum or plasma urea nitroge n measurement (mass/volume)on 02-28-2022 Urea nitrogen [Mass/Vol] 16 mg/dL 7-18 [facility] Work Phone: Thin prep Papanicolaou smear with manual screeningon 02-28-2022 Thin prep Papanicolaou smear with manual screening 9 U/L 15-37 [facility] Work Phone: [phone] Thin prep Papanicolaou smear with manual screening 7 5-15 [facility] Work Phone: Absolute lymphocyte counton 02-16-2022 Lymphocytes Auto (Unsp spec) [#/Vol] 1.81 10*3/uL 0.83-4.51 [facility] Work Phone: Basophil percentageon 2021 Basophils/100 WBC (Bld) 0.7 % 0-1 [facility] Work Phone: Chloride [Moles/Vol] 109 mmol/L 98-107 [facility] Work Phone: Eosinophils/100 WBC (Bld) 1.4 % 0-5 [facility] Work Phone: Glucose [Mass/Vol] 85 mg/dL 74-106 [facility] Work Phone: Neutrophils (Bld) [#/Vol] 6.2 10*3/uL 2.0-7.7 [facility] Work Phone: Neutrophils/100 WBC (Bld) 68.0 % 47-70 [facility] Work Phone: Potassium [Moles/Vol] 4.0 mmol/L 3.5-5.1 [facility]: Sodium [Moles/Vol] 141 mmol/L 136-145 [facility] Work Phone: [phone] WBC (Bld) [#/Vol] 9.1 10*3/uL 4.4-11.0 [facility] Work Phone: Blood erythrocytes count (nu mber/volume)on 02-16-2022 RBC (Bld) [#/Vol] 4.18 10*6/uL 4.2-5.4 [facility] Work Phone: Blood hemoglobin measurement (mass/volume)on 02-16-2022 Hemoglobin (Bld) [Mass/Vol] 12.3 g/dL 12.0-15.0 [facility] Work Phone: Blood lymphocytes/100 leukoc yteson 02-16-2022 Lymphocytes/100 WBC (Bld) 19.8 % 19-41 [facility] Work Phone: Blood monocytes/100 leukocyt eson 02-16-2022 Monocytes/100 WBC (Bld) 9.4 % 0-10 [facility] Work Phone: Blood platelet mean volumeon 02-16-2022 Platelet mean volume (Bld) [Entitic vol] 11.0 fL 6.2-12.0 [facility] Work Phone: Determination of erythrocyte mean corpuscular volume (MCV)on 02-16-2022 MCV (RBC) [Entitic vol] 94.5 fL 81-99 [facility] Work Phone: Glucose Glucometer (BldC) [M ass/Vol]on 02-16-2022 Glucose [Mass/Vol] 64 mg/dL 74-106 [facility] Work Phone: Comment on above: MANAGEMENT OF PATIEN T CARE PER NURSING PROTOCOL Hematocrit Auto (Bld) [Volum e fraction]on 02-16-2022 Hematocrit (Bld) [Volume fraction] 39.5 % 37-47 [facility] Work Phone: [phone] Laboratory - Chemistry and C hemistry - challengeon 02-16-2022 CO2 [Moles/Vol] 26.0 mmol/L 21.0-32.0 [facility] Work Phone: [phone] Urea nitrogen/Creatinine [Mass ratio] 21.1 mg/mg 10-20 [facility] Work Phone: [phone] Laboratory - Hematology and Cell countson 02-16-2022 Erythrocyte distribution width (RBC) [Entitic vol] 48.5 fL 35.1-43.9 [facility] Work Phone: [phone] Erythrocyte distribution width (RBC) [Ratio] 14.0 % 11.6-14.6 [facility] Work Phone: [phone] Immature granulocytes/100 WBC (Bld) 0.700 % 0.0-0.9 [facility] Work Phone: [phone] Comment on above: IG% - Immature Granu locytes (promyelocytes, myelocytes and metamyelocytes) > 1% indicates that a LEFT SHIFT is Present. MCH (RBC) [Entitic mass] 29.4 pg 27.0-32.0 [facility] Work Phone: [phone] Nucleated RBC/100 WBC (Bld) [Ratio] 0 % 0-5 [facility] Work Phone: [phone] MCHC Auto (RBC) [Mass/Vol]on 02-16-2022 MCHC (RBC) [Mass/Vol] 31.1 g/dL 32-36 [facility] Work Phone: No Panel Informationon 02-16 Estimated Creatinine Clearance Calc 42.00 ml/min [facility] Work Phone: [phone] Estimated GFR (MDRD) Amer 110 mL/min >60 [facility] Work Phone: [phone] Comment on above: GFR Calc Estimated GFR (MDRD) Non-Af Amer 91 mL/min >60 [facility] Work Phone: [phone] Comment on above: Non- GFR Calc Troponin I High Sensitivity 8 pg/mL 3.0-54.0 [facility] Work Phone: Comment on above: Please Note: New [place] t Units and Gender Specific Reference Ranges. For more information see Policy Stat Procedure Devol High Sensitivity Troponin (TNIH) and attachments. Platelets bldon 02-16-2022 Platelets (Bld) [#/Vol] 317 10*3/uL 150-450 [facility] Work Phone: [phone] Serum or plasma calcium jessi urement (mass/volume)on 02-16-2022 Calcium [Mass/Vol] 8.9 mg/dL 8.5-10.1 [facility] Work Phone: Serum or plasma creatinine m easurement (mass/volume)on 02-16-2022 Creatinine [Mass/Vol] 0.66 mg/dL 0.55-1.02 [facility] Work Phone: Comment on above: The validity of the calculated GFR & GFRAA in patients over 70 years has not been determined. Clinical correlation is essential. Serum or plasma urea nitroge n measurement (mass/volume)on 02-16-2022 Urea nitrogen [Mass/Vol] 14 mg/dL 7-18 [facility] Work Phone: Thin prep Papanicolaou smear with manual screeningon 02-16-2022 Thin prep Papanicolaou smear with manual screening 6 5-15 [facility] Work Phone: GLUCOSE, BLOOD (POC)on 12-17 Glucose [Mass/Vol] 248 mg/dL Abnormal 74 - 99 mg/dL [facility] UA DIP, URINE (POC)on 2021 BILIRUBIN UA (POCT) Negative Negative [facility] CLARITY UA (POCT) Cloudy [facility] COLOR UA (POCT) Dark yellow [facility] GLUCOSE UA (POCT) >=1000 Abnormal Negative mg/dL [facility] HEMOGLOBIN/BLOOD UA (POCT) Large Abnormal Negative [facility] KETONE UA (POCT) Trace Negative mg/dL [facility] LEUKOCYTES UA (POCT) Small Abnormal Negative [facility] NITRITE UA (POCT) Positive Abnormal Negative [facility] PH UA (POCT) 5.0 4.5 - 8.0 [facility] Protein Ql (U) 100 mg/dL Abnormal Negative mg/dL [facility] SPECIFIC GRAVITY UA (POCT) 1.025 1.005 - 1.030 [facility] UROBILINOGEN UA (POCT) 0.2 E.U./dL Kasia l E.U./dL [facility] TSH BLDon 10-04-2021 TSH Qn 1.840 m[IU]/L 0.270 - 4.200 mIU/L [facility] XR Chest PA and Lateralon IMPRESSION: No acute radiographic abnormality. 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 [id number] _DIVISION OF RADIOLOGY Provider, Psychiatric [facility] - 10/04/2021 * * *Final Report* [...] spine. IMPRESSION IMPRESSION: No acute radiographic abnormality. 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 Transcribe Date/Time: Oct 04 2021 7:28A Dictated by : MALIKA JACOBSON MD This examination was interpreted and the report reviewed and electronically signed by: MALIKA JACOBSON MD on Oct 04 2021 7:28AM EST [facility] [facility] XR Chest PA and LateralOrder ed By: [facility] Provider on 10-04-2021 [facility] CBC W Auto Differential pane l (Bld)on 10-03-2021 Abs Immature Gran 0.05 k/uL <0.10 k/uL [facility] Basophils (Bld) [#/Vol] 0.07 10*3/uL <0.11 k/uL [facility] Basophils/100 WBC (Bld) 0.7 % [facility] Differential cell count method Nom (Bld) Auto [facility] Eosinophils (Bld) [#/Vol] 0.12 10*3/uL <0.46 k/uL [facility] Eosinophils/100 WBC (Bld) 1.2 % [facility] Erythrocyte distribution width (RBC) [Ratio] 14.2 % 11.5 - 15.0 % [facility] Hematocrit (Bld) [Volume fraction] 43.9 % 36.0 - 46.0 % [facility] Hemoglobin (Bld) [Mass/Vol] 14.2 g/dL 11.5 - 15.5 g/dL [facility] Immature Gran % 0.5 % [facility] Lymphocytes (Bld) [#/Vol] 2.06 10*3/uL 1.00 - 4.00 k/uL [facility] Lymphocytes/100 WBC (Bld) 20.9 % [facility] MCH (RBC) [Entitic mass] 30.5 pg 26.0 - 34.0 pg [facility] MCHC (RBC) [Mass/Vol] 32.3 g/dL 30.5 - 36.0 g/dL [facility] MCV (RBC) [Entitic vol] 94.2 fL 80.0 - 100.0 fL [facility] Monocytes (Bld) [#/Vol] 0.81 10*3/uL <0.87 k/uL [facility] Monocytes/100 WBC (Bld) 8.2 % [facility] Neutrophils (Bld) [#/Vol] 6.76 10*3/uL 1.45 - 7.50 k/uL [facility] Neutrophils/100 WBC (Bld) 68.5 % [facility] Nucleated RBC (Bld) [#/Vol] 10*3/uL <0.01 k/uL [facility] Nucleated RBC/100 WBC (Bld) [Ratio] 0.0 /100 WBC [facility] Platelet mean volume (Bld) [Entitic vol] 11.1 fL 9.0 - 12.7 fL [facility] Platelets (Bld) [#/Vol] 293 10*3/uL 150 - 400 k/uL [facility] RBC (Bld) [#/Vol] 4.66 10*6/uL 3.90 - 5.2 0 m/uL [facility] WBC (Bld) [#/Vol] 9.87 10*3/uL 3.70 - 11.00 k/uL [facility] Comprehensive metabolic 2000 panelon 10-03-2021 Albumin [Mass/Vol] 3.9 g/dL 3.9 - 4.9 g/dL [facility] ALP [Catalytic activity/Vol] 100 U/L 34 - 123 U/L [facility] ALT [Catalytic activity/Vol] 9 U/L 7 - 38 U/L [facility] Anion gap [Moles/Vol] 10 mmol/L 9 - 18 mmol/L [facility] AST [Catalytic activity/Vol] 14 U/L 13 - 35 U/L [facility] Bilirubin [Mass/Vol] 0.2 mg/dL 0.2 - 1 .3 mg/dL [facility] Calcium [Mass/Vol] 9.1 mg/dL 8.5 - 10. 2 mg/dL [facility] Chloride [Moles/Vol] 104 mmol/L 97 - 10 5 mmol/L [facility] CO2 [Moles/Vol] 23 mmol/L 22 - 30 mmol/L [facility] Creatinine [Mass/Vol] 0.70 mg/dL 0.58 - 0.96 mg/dL [facility] Estimated Glomerular Filtration Rate 88 mL/min/1.73m >=60 mL/min/1.73 m [facility] Glucose [Mass/Vol] 128 mg/dL High 74 - 99 mg/dL [facility] Potassium [Moles/Vol] 4.3 mmol/L 3.7 - 5.1 mmol/L [facility] Protein [Mass/Vol] 7.2 g/dL 6.3 - 8.0 g/dL [facility] Sodium [Moles/Vol] 137 mmol/L 136 - 144 mmol/L [facility] Urea nitrogen [Mass/Vol] 21 mg/dL 7 - 21 mg/dL [facility] XR CHEST 2V FRONTAL/LATon [facility] XR Chest PA and Lateralon Radiology Study observation (narrative) Daniela oliver [facility] ANES [place] 06-12-2019 ANES POST HNO ID: [id number] Author: Mayra Moore Service: Anesthesiology Author Type: [...] 12, 2019 TIME: 8:36 AM PAGER/CONTACT #: [facility] ANENaveed PREOPon 06-12-2019 ANES PREOP HNO ID: [id number] Author: Mayra Moore Service: Anesthesiology Author Type: 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 per TELECOMMUNICATIONS OFFICER outside facility Apr 1997 - MORBID OBESITY 08/18/2007 - Obstructive sleep apnea Sleep study 2002 - Occlusion and stenosis of carotid artery without mention of cerebral infarction 03/09/06 mild stenosis shown on u/s at [facility] u/s repeated 02/02/07 with no change [...] 12, 2019 TIME: 7:07 AM PAGER/CONTACT #: [facility] NURSING PROGon 06-12-2019 NURSING PROG HNO ID: [id number] Author: Natalya (Rn) ISMAEL Cox Service: Nursing Author Type: Registered Nurse Type: Nursing Progress Note Filed: 06/13/2019 2:57 PM Note Text: Nursing Progress Note Topic of Note: Post op phone call Miriam Davenport [phone] Pt has concern about stitches poking her and location of the areas where biopsies were taken. Encouraged pt to reach out to Dr. Prado for clarification. Phone number provided. This note was completed by: Natalya Cox RN [facility] SURGICAL PATHOLOGYon 020 SURGICAL PATHOLOGY ADDENDUM PRESENT Specimen originated from [facility] Specimen #: [id number] Submitting Physician: ESTHER PRADO FINAL DIAGNOSIS 1. [...] Gram stains were performed at the [facility] and compared to appropriate controls. The [...] one cassette. Gross examination performed at [facility], [address] [place] [address] 06/12/2019 9:33:07 PM Date of Report: 06/13/2019 Date of Procedure: 06/12/2019 Date of Receipt: 06/12/2019 Submitted by: ESTHER PRADO Additional Physician(s): GUILLAUME DOMINGUEZ Location: [facility] Diagnostic interpretation performed at [facility], [address] [place] [address]. CLIA Number: [id number] [facility] NURSING PROGon 06-01-2019 NURSING PROG HNO ID: [id number] Author: Karin (Rn) Gopal RN Service: General Surgery Author Type: Registered Nurse Type: Nursing Progress Note Filed: 06/01/2019 8:16 PM Note Text: PACC Nurse Progress Note History AND Physical: PACC Visit Date: 05-19-19 Original HANDP Date: N/A ED visit Date: N/A Outside HANDP Scanned Date: N/A Labs Within Last 6 Months: CBC: Date 03-31-19 BMP/CMP: Date 03-31-19 Results scanned in [facility] 05-01-19 Imaging Within Last 12 Months: N/A Cardiac Testing: EKG in last 12 Months: Yes: Date: 03-17-19, Comment: Confirmed in [facility] Last Menstrual Period: LMP Date: Not recorded [...] lumbar region Assessment: following pain management at [facility], receiving facet injections ? 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 Cartagena-Bariatric/[facility] 2) Dr. Luong - Entry Level Accounting Clerk (non [facility]) 3) Dr. Reina - Marine Extension Agent (non [facility]) 4) Dr Prado - Gynecology/[facility] Comfort Patterson, GM.CHEMICAL ENGINEERING TECHNICIAN 06/06/2019 8:07 AM Signed Can you clarify why she is seeing bar finish operator and filling machine tender - diagnoses for referrals? Lola Wong LPN 06/06/2019 8:[address] Dominguez, did patient indicate to you why she is seeing these specialists? Guillaume Dominguez MD 06/07/2019 7:26 PM Signed Filed order Do not use Non[facility] consult orders (there is a place with consult orders to check if they are a [facility] provider/have Epic privileges. Progress Notes (TELECOMMUNICATIONS OFFICER MAIN): Ning Trung VILLASENOR 06/05/2019 3:51 PM [...] have an advanced directive: No Does [facility] have a copy of the patient's [...] prescribed by anesthesia, internal medicine, surgeon, or FUEL CELL REPAIRER Stop NSAIDs, Aspirin (ASA), vitamins, herbal supplements, [...] jewelry, body piercing, makeup, contacts, lotions, nail venezuelan on fingers, or anything in hair on [...] if after hours patient instructed to call lighting equipment operator and ask for geothermal production manager clamp operator onc resident. [place] program offered to patient: No, Additional teaching as indicated by patient/family learning needs. PATIENT LEARNING EVALUATION AND FOLLOW UP PLAN: Patient and/or family express understanding of upcoming surgery, pre-operative preparation, the operative process, and post-operative instructions. Follow up plan: Complete - No need for follow-up Patient has a post-op appointment scheduled: Yes Referral (recommentation): None Educator: Ning Nino COMMUNICATIONS MEDIA PROFESSOR [facility] MRI LUMBAR SPINE WO IVCONon 10-03-2018 MRI LUMBAR SPINE WO IVCON * * *Final Report* * * DATE OF EXAM: Oct 03 2018 9:18AM [facility] 0303 - MRI LUMBAR SPINE WO IVCON [...] on Oct 03 2018 10:38AM EST [id number] [facility] Vital Signs Date Time Vital Sign Value Performing Clinician Facility 08-03-2024 13:35-0500 Body height 165.1 cm Tika Jones MD Work Phone: [facility] 08-03-2024 13:35-0500 Diastolic blood pressure 56 mm[Hg] Tika tamayo MD Work Phone: [facility] 08-03-2024 13:35-0500 Heart rate 71 /min Tika Jones MD Work Phone: [facility] 08-03-2024 13:35-0500 Respiratory rate 18 /min Tika Jones MD Work Phone: [facility] 08-03-2024 13:35-0500 SaO2% (BldA) [Mass fraction] 97 % Tika Jones MD Work Phone: [facility] 08-03-2024 13:35-0500 Systolic blood pressure 103 mm[Hg] Tika Jones MD Work Phone: [facility] 05-11-2024 16:43-0500 SaO2% (BldA) [Mass fraction] 97 % GUILLAUME DOMINGUEZ [facility] Comment on above: Order Comment: Specimen Type: ARTERIAL B LOOD SPECIMENOrdering Facility: [facility] Address: [address] [place] [address] Performed By: #### A LLBG ####[facility] LABORATORYCLIA [id number] [place] [address] [place] 05-06-2024 01:12-0500 Body temperature 98.2 [degF] Dr. Guillaume Dominguez MD Work Phone: [facility] 05-06-2024 01:12-0500 Diastolic blood pressure 57 mm[Hg] Dr. Guillaume hinds MD Work Phone: [phone] [place] [address] 05-06-2024 01:12-0500 Heart rate 76 /min Dr. Guillaume Dominguez MD Work Phone: 1(397)[phone] [place] [address] 05-06-2024 01:12-0500 Respiratory rate 17 /min Dr. Guillaume Dominguez MD Work Phone: 0(585)[phone] [place] [address] 05-06-2024 01:12-0500 SaO2% (BldA) [Mass fraction] 95 % Dr. Guillaume Dominguez MD Work Phone: 2(885)[phone] [place] [address] 05-06-2024 01:12-0500 Systolic blood pressure 102 mm[Hg] Dr. Guillaume abarca MD Work Phone: 2(725)[phone] [place] [address] 05-06-2024 00:24-0500 Inhaled oxygen flow rate 2 L/min Dr. Guillaume hinds MD Work Phone: 6(580)[phone] [place] [address] 05-05-2024 22:59-0500 Body height 167.[address] Guillaume Dominguez MD Work Phone: 6([phone] [place] [address] 05-05-2024 22:59-0500 Body mass index (BMI) [Ratio] 30.7 kg/m2 Dr. Guillaume Dominguez MD Work Phone: 3([phone])[phone] [place] [address] 05-05-2024 22:59-0500 Body weight 86.[address] Guillaume Dominguez MD Work Phone: 8(276)[phone] [place] [address] 04-28-2024 16:40-0500 Body mass index (BMI) [Ratio] 30.67 kg/m2 Guillaume Dominguez MD Work Phone: [facility] 04-28-2024 16:40-0500 Body temperature 98.01 [degF] Guillaume Dominguez MD Work Phone: [facility] 04-28-2024 16:40-0500 Body weight 83.6 kg Guillaume Dominguez MD Work Phone: [facility] 04-28-2024 16:40-0500 Diastolic blood pressure 68 mm[Hg] Guillaume Oliver Work Phone: [facility] 04-28-2024 16:40-0500 Heart rate 93 /min Guillaume Dominguez MD Work Phone: [facility] 04-28-2024 16:40-0500 Respiratory rate 16 /min Guillaume Dominguez MD Work Phone: [facility] 04-28-2024 16:40-0500 SaO2% (BldA) [Mass fraction] 98 % Guillaume Dominguez MD Work Phone: [facility] 04-28-2024 16:40-0500 Systolic blood pressure 117 mm[Hg] Guillaume Dominguez MD Work Phone: [facility] 01-10-2024 11:38-0400 Body mass index (BMI) [Ratio] 32.94 kg/m2 Comfort Patterson MANAGING EDITOR.CHEMICAL ENGINEERING TECHNICIAN Work Phone: [facility] 01-10-2024 11:38-0400 Body weight 89.8 kg Comfort Patterson MANAGING EDITOR.CHEMICAL ENGINEERING TECHNICIAN Work Phone: [facility] 01-10-2024 11:38-0400 Diastolic blood pressure 76 mm[Hg] Comfort Patterson MANAGING EDITOR.CHEMICAL ENGINEERING TECHNICIAN Work Phone: [facility] 01-10-2024 11:38-0400 Heart rate 90 /min Comfort Patterson MANAGING EDITOR.CHEMICAL ENGINEERING TECHNICIAN Work Phone: [facility] 01-10-2024 11:38-0400 Respiratory rate 16 /min Comfort Patterson MANAGING EDITOR.CHEMICAL ENGINEERING TECHNICIAN Work Phone: [facility] 01-10-2024 11:38-0400 Systolic blood pressure 113 mm[Hg] Comfort Patterson MANAGING EDITOR.CHEMICAL ENGINEERING TECHNICIAN Work Phone: [facility] 12-24-2023 11:24-0400 Body mass index (BMI) [Ratio] 33.28 kg/m2 Josefa Caputo MANAGING EDITOR.YARDING SUPERVISOR Work Phone: [facility] 12-24-2023 11:24-0400 Body weight 90.72 kg Josefa Flynn MANAGING EDITOR.YARDING SUPERVISOR Work Phone: [facility] 12-24-2023 11:24-0400 Diastolic blood pressure 70 mm[Hg] Josfea Flynn MANAGING EDITOR.YARDING SUPERVISOR Work Phone: [facility] 12-24-2023 11:24-0400 Heart rate 80 /min Josefa Flynn MANAGING EDITOR.YARDING SUPERVISOR Work Phone: [facility] 12-24-2023 11:24-0400 Respiratory rate 20 /min Josefa Flynn MANAGING EDITOR.YARDING SUPERVISOR Work Phone: [facility] 12-24-2023 11:24-0400 Systolic blood pressure 124 mm[Hg] Josefa Flynn MANAGING EDITOR.YARDING SUPERVISOR Work Phone: [facility] 12-10-2023 16:16-0400 Body mass index (BMI) [Ratio] 33.25 kg/m2 Guillaume Dominguez MD Work Phone: [facility] 12-10-2023 16:16-0400 Body temperature 98.1 [degF] Guillaume Dominguez MD Work Phone: [facility] 12-10-2023 16:16-0400 Body weight 90.63 kg Guillaume Dominguez MD Work Phone: [facility] 12-10-2023 16:16-0400 Diastolic blood pressure 68 mm[Hg] Guillaume Oliver Work Phone: [facility] 12-10-2023 16:16-0400 Heart rate 94 /min Guillaume Dominguez MD Work Phone: [facility] 12-10-2023 16:16-0400 Respiratory rate 18 /min Guillaume Dominguez MD Work Phone: [facility] 12-10-2023 16:16-0400 SaO2% (BldA) [Mass fraction] 97 % Guillaume Dominguez MD Work Phone: [facility] 12-10-2023 16:16-0400 Systolic blood pressure 118 mm[Hg] Guillaume Dominguez MD Work Phone: [facility] 10-29-2023 15:53-0400 Diastolic blood pressure 80 mm[Hg] Curtis Oliver Work Phone: [facility] 10-29-2023 15:53-0400 Heart rate 89 /min Curtis Nassar MD Work Phone: [facility] 10-29-2023 15:53-0400 Systolic blood pressure 142 mm[Hg] Curtis Nassar MD Work Phone: [facility] 10-11-2023 11:23-0400 Body height 165.1 cm Comfort Patterson MANAGING EDITOR.CHEMICAL ENGINEERING TECHNICIAN Work Phone: [facility] 10-11-2023 11:23-0400 Body mass index (BMI) [Ratio] 33.78 kg/m2 Comfort Patterson MANAGING EDITOR.CHEMICAL ENGINEERING TECHNICIAN Work Phone: [facility] 10-11-2023 11:23-0400 Body weight 92.08 kg Comfort Patterson MANAGING EDITOR.CHEMICAL ENGINEERING TECHNICIAN Work Phone: [facility] 10-11-2023 11:23-0400 Diastolic blood pressure 81 mm[Hg] Comfort Patterson MANAGING EDITOR.CHEMICAL ENGINEERING TECHNICIAN Work Phone: [facility] 10-11-2023 11:23-0400 Heart rate 88 /min Comfort Patterson MANAGING EDITOR.CHEMICAL ENGINEERING TECHNICIAN Work Phone: [facility] 10-11-2023 11:23-0400 Respiratory rate 16 /min Comfort Patterson MANAGING EDITOR.CHEMICAL ENGINEERING TECHNICIAN Work Phone: [facility] 10-11-2023 11:23-0400 Systolic blood pressure 119 mm[Hg] Comfort Patterson MANAGING EDITOR.CHEMICAL ENGINEERING TECHNICIAN Work Phone: [facility] 08-13-2023 11:10-0400 Body weight 94.35 kg Josefa Flynn MANAGING EDITOR.YARDING SUPERVISOR Work Phone: [facility] 08-13-2023 11:10-0400 Diastolic blood pressure 70 mm[Hg] Josefa Flynn MANAGING EDITOR.YARDING SUPERVISOR Work Phone: [facility] 08-13-2023 11:10-0400 Heart rate 98 /min Josefa Flynn MANAGING EDITOR.YARDING SUPERVISOR Work Phone: [facility] 08-13-2023 11:10-0400 Respiratory rate 16 /min Josefa Flynn MANAGING EDITOR.YARDING SUPERVISOR Work Phone: [facility] 08-13-2023 11:10-0400 SaO2% (BldA) [Mass fraction] 95 % Josefa Flynn MANAGING EDITOR.YARDING SUPERVISOR Work Phone: [facility] 08-13-2023 11:10-0400 Systolic blood pressure 116 mm[Hg] Josefa Flynn MANAGING EDITOR.YARDING SUPERVISOR Work Phone: [facility] 08-11-2023 08:59-0400 Body weight 94.26 kg Martha Pendleton DO Work Phone: [facility] 08-11-2023 08:59-0400 Diastolic blood pressure 79 mm[Hg] Martha Pendleton DO Work Phone: [facility] 08-11-2023 08:59-0400 Heart rate 89 /min Martha Pendleton DO Work Phone: [facility] 08-11-2023 08:59-0400 Systolic blood pressure 127 mm[Hg] Martha Pendleton D O Work Phone: [facility] 07-29-2023 09:57-0500 Body height 165.1 cm Radha Walters MD Work Phone: [facility] 07-29-2023 09:57-0500 Body weight 94.21 kg Radha Walters MD Work Phone: [facility] 07-08-2023 15:43-0500 Body weight 94.8 kg Rajiv Walker MD Work Phone: [facility] 07-08-2023 15:43-0500 Diastolic blood pressure 82 mm[Hg] Rajiv Walker MD Work Phone: [facility] 07-08-2023 15:43-0500 Heart rate 101 /min Rajiv Walker MD Work Phone: [facility] 07-08-2023 15:43-0500 Systolic blood pressure 145 mm[Hg] Rajiv Oliver Work Phone: [facility] 06-25-2023 14:32-0500 Body height 165.1 cm Nhi De La Torre MANAGING EDITOR.YARDING SUPERVISOR Work Phone: [facility] 06-25-2023 14:32-0500 Body weight 95.5 kg Nhi De La Torre MANAGING EDITOR.YARDING SUPERVISOR Work Phone: [facility] 06-25-2023 14:32-0500 Diastolic blood pressure 68 mm[Hg] Nhi De La Torre MANAGING EDITOR.YARDING SUPERVISOR Work Phone: [facility] 06-25-2023 14:32-0500 Heart rate 72 /min Nhi De La Torre MANAGING EDITOR.YARDING SUPERVISOR Work Phone: [facility] 06-25-2023 14:32-0500 SaO2% (BldA) [Mass fraction] 98 % Nhi De La Torre MANAGING EDITOR.YARDING SUPERVISOR Work Phone: [facility] 06-25-2023 14:32-0500 Systolic blood pressure 118 mm[Hg] Nhi De La Torre MANAGING EDITOR.YARDING SUPERVISOR Work Phone: [facility] 06-12-2023 23:05-0500 Diastolic blood pressure 74 mm[Hg] [facility] 06-12-2023 23:05-0500 Heart rate 78 /min [facility] 06-12-2023 23:05-0500 Respiratory rate 16 /min [facility] 06-12-2023 23:05-0500 SaO2% (BldA) [Mass fraction] 97 % [facility] 06-12-2023 23:05-0500 Systolic blood pressure 157 mm[Hg] [facility] 06-12-2023 19:17-0500 Body height 167.64 cm [facility] 06-12-2023 19:17-0500 Body mass index (BMI) [Ratio] 35.6 kg/m2 [facility] 06-12-2023 19:17-0500 Body temperature 97.1 [degF] [facility] 06-12-2023 19:17-0500 Body weight 100.3 kg [facility] 05-14-2023 10:54-0500 Body temperature 98.71 [degF] Guillaume Dominguez MD Work Phone: [facility] 05-14-2023 10:54-0500 Body weight 96.62 kg Guillaume Dominguez MD Work Phone: [facility] 05-14-2023 10:54-0500 Diastolic blood pressure 68 mm[Hg] Guillaume lOiver Work Phone: [facility] 05-14-2023 10:54-0500 Heart rate 74 /min Guillaume Dominguez MD Work Phone: [facility] 05-14-2023 10:54-0500 Respiratory rate 18 /min Guillaume Dominguez MD Work Phone: [facility] 05-14-2023 10:54-0500 SaO2% (BldA) [Mass fraction] 97 % Guillaume Dominguez MD Work Phone: [facility] 05-14-2023 10:54-0500 Systolic blood pressure 110 mm[Hg] Guillaume Dominguez MD Work Phone: [facility] 02-26-2023 19:30-0400 Diastolic blood pressure 98 mm[Hg] [facility] 02-26-2023 19:30-0400 Heart rate 71 /min [facility] 02-26-2023 19:30-0400 Respiratory rate 16 /min [facility] 02-26-2023 19:30-0400 SaO2% (BldA) [Mass fraction] 95 % [facility] 02-26-2023 19:30-0400 Systolic blood pressure 116 mm[Hg] [facility] 02-26-2023 17:33-0400 Body height 167.64 cm [facility] 02-26-2023 17:33-0400 Body mass index (BMI) [Ratio] 33 kg/m2 [facility] 02-26-2023 17:33-0400 Body temperature 96.9 [degF] [facility] 02-26-2023 17:33-0400 Body weight 93 kg [facility] 02-04-2023 13:43-0400 Diastolic blood pressure 80 mm[Hg] Mi Nurse Work Phone: [facility] 02-04-2023 13:43-0400 Heart rate 74 /min Mi Nurse Work Phone: [facility] 02-04-2023 13:43-0400 Systolic blood pressure 131 mm[Hg] Mi Nurse Work Phone: [facility] 02-02-2023 10:57-0400 Diastolic blood pressure 60 mm[Hg] Josefa Flynn MANAGING EDITOR.YARDING SUPERVISOR Work Phone: [facility] 02-02-2023 10:57-0400 Heart rate 102 /min Josefa Flynn MANAGING EDITOR.YARDING SUPERVISOR Work Phone: [facility] 02-02-2023 10:57-0400 SaO2% (BldA) [Mass fraction] 98 % Josefa Flynn MANAGING EDITOR.YARDING SUPERVISOR Work Phone: [facility] 02-02-2023 10:57-0400 Systolic blood pressure 80 mm[Hg] Josefa Flynn MANAGING EDITOR.YARDING SUPERVISOR Work Phone: [facility] 01-11-2023 08:43-0400 Body height 162.6 cm Maykel Whitfield DO Work Phone: [facility] 01-11-2023 08:43-0400 Body weight 95.84 kg Maykel Whitfield DO Work Phone: [facility] 01-11-2023 08:43-0400 Diastolic blood pressure 58 mm[Hg] Maykel hunt DO Work Phone: [facility] 01-11-2023 08:43-0400 Heart rate 77 /min Maykel Whitfield DO Work Phone: [facility] 01-11-2023 08:43-0400 SaO2% (BldA) [Mass fraction] 98 % Maykel Whitfield DO Work Phone: [facility] 01-11-2023 08:43-0400 Systolic blood pressure 96 mm[Hg] Maykel martins DO Work Phone: [facility] 12-30-2022 09:45-0400 Body weight 97.61 kg Curtis Nassar MD Work Phone: [facility] 12-30-2022 09:45-0400 Diastolic blood pressure 85 mm[Hg] Curtis Oliver Work Phone: [facility] 12-30-2022 09:45-0400 Heart rate 80 /min Curtis Nassar MD Work Phone: [facility] 12-30-2022 09:45-0400 Systolic blood pressure 147 mm[Hg] Curtis Nassar MD Work Phone: [facility] 10-27-2022 13:34-0400 Diastolic blood pressure 78 mm[Hg] Josefa Flynn MANAGING EDITOR.YARDING SUPERVISOR Work Phone: [facility] 10-27-2022 13:34-0400 Systolic blood pressure 116 mm[Hg] Josefa Flynn MANAGING EDITOR.YARDING SUPERVISOR Work Phone: [facility] 10-27-2022 13:08-0400 Heart rate 86 /min Josefa Flynn MANAGING EDITOR.YARDING SUPERVISOR Work Phone: [facility] 10-27-2022 13:08-0400 SaO2% (BldA) [Mass fraction] 96 % Josefa Flynn MANAGING EDITOR.YARDING SUPERVISOR Work Phone: [facility] 09-14-2022 10:33-0400 Heart rate 77 /min Moraima Montelongo MD Work Phone: [facility] 09-14-2022 10:33-0400 SaO2% (BldA) [Mass fraction] 97 % Moraima Montelongo MD Work Phone: [facility] 08-15-2022 11:28-0400 Body weight 108.86 kg Guillaume Dominguez MD Work Phone: [facility] 08-15-2022 11:28-0400 Diastolic blood pressure 72 mm[Hg] Guillaume Oliver Work Phone: [facility] 08-15-2022 11:28-0400 Heart rate 101 /min Guillaume Dominguez MD Work Phone: [facility] 08-15-2022 11:28-0400 Respiratory rate 20 /min Guillaume Dominguez MD Work Phone: [facility] 08-15-2022 11:28-0400 SaO2% (BldA) [Mass fraction] 99 % Guillaume Dominguez MD Work Phone: [facility] 08-15-2022 11:28-0400 Systolic blood pressure 126 mm[Hg] Guillaume Dominguez MD Work Phone: [facility] 07-07-2022 10:52-0500 Body temperature 96.4 [degF] Guillaume Dominguez MD Work Phone: [facility] 07-07-2022 10:52-0500 Body weight 106.59 kg Guillaume Dominguez MD Work Phone: [facility] 07-07-2022 10:52-0500 Diastolic blood pressure 78 mm[Hg] Guillaume Oliver Work Phone: [facility] 07-07-2022 10:52-0500 Heart rate 61 /min Guillaume Dominguez MD Work Phone: [facility] 07-07-2022 10:52-0500 Respiratory rate 18 /min Guillaume Dominguez MD Work Phone: [facility] 07-07-2022 10:52-0500 SaO2% (BldA) [Mass fraction] 95 % Guillaume Dominguez MD Work Phone: [facility] 07-07-2022 10:52-0500 Systolic blood pressure 118 mm[Hg] Guillaume Dominguez MD Work Phone: [facility] 06-11-2022 11:21-0500 Body height 167.6 cm Maykel Patel Jr., MD Work Phone: [facility] 06-11-2022 11:21-0500 Body weight 108.86 kg Maykel Patel Jr., MD Work Phone: [facility] 06-11-2022 11:21-0500 Diastolic blood pressure 69 mm[Hg] Maykel Patel Jr., MD Work Phone: [facility] 06-11-2022 11:21-0500 Systolic blood pressure 122 mm[Hg] Maykel Patel Jr., MD Work Phone: [facility] 05-12-2022 17:18-0500 Body weight 109.32 kg Guillaume Dominguez MD Work Phone: [facility] 05-12-2022 17:18-0500 Diastolic blood pressure 72 mm[Hg] Guillaume Oliver Work Phone: [facility] 05-12-2022 17:18-0500 Heart rate 78 /min Guillaume Dominguez MD Work Phone: [facility] 05-12-2022 17:18-0500 SaO2% (BldA) [Mass fraction] 100 % Guillaume Dominguez MD Work Phone: [facility] 05-12-2022 17:18-0500 Systolic blood pressure 118 mm[Hg] Guillaume Dominguez MD Work Phone: [facility] 05-06-2022 15:42-0500 Body temperature 98.29 [degF] Janae Praisler-Wood MANAGING EDITOR.YARDING SUPERVISOR Work Phone: [facility] 05-06-2022 15:42-0500 Body weight 111.77 kg Janae Praisler-Wood MANAGING EDITOR.YARDING SUPERVISOR Work Phone: [facility] 05-06-2022 15:42-0500 Diastolic blood pressure 78 mm[Hg] Janae Praisler-Wood MANAGING EDITOR.YARDING SUPERVISOR Work Phone: [facility] 05-06-2022 15:42-0500 Heart rate 105 /min Janae Praisler-Wood MANAGING EDITOR.YARDING SUPERVISOR Work Phone: [facility] 05-06-2022 15:42-0500 Respiratory rate 30 /min Janae Praisler-Wood MANAGING EDITOR.YARDING SUPERVISOR Work Phone: [facility] 05-06-2022 15:42-0500 SaO2% (BldA) [Mass fraction] 98 % Janaeradha Sandoval MANAGING EDITOR.YARDING SUPERVISOR Work Phone: [facility] 05-06-2022 15:42-0500 Systolic blood pressure 110 mm[Hg] Janae Sandoval MANAGING EDITOR.YARDING SUPERVISOR Work Phone: [facility] 04-28-2022 09:40-0500 Body height 165.1 cm Respiratory Wstr Work Phone: [facility] 04-28-2022 09:40-0500 Body weight 112.04 kg Respiratory Wstr Work Phone: [facility] 04-28-2022 09:40-0500 Heart rate 62 /min Respiratory Wstr Work Phone: [facility] 04-28-2022 09:40-0500 Respiratory rate 16 /min Respiratory Wstr Work Phone: [facility] 04-28-2022 09:40-0500 SaO2% (BldA) [Mass fraction] 97 % Respiratory Wstr Work Phone: [facility] 04-27-2022 13:37-0500 Body weight 112.04 kg Guillaume Dominguez MD Work Phone: [facility] 04-27-2022 13:37-0500 Diastolic blood pressure 82 mm[Hg] Guillaume Oliver Work Phone: [facility] 04-27-2022 13:37-0500 Heart rate 88 /min Guillaume Dominguez MD Work Phone: [facility] 04-27-2022 13:37-0500 SaO2% (BldA) [Mass fraction] 97 % Guillaume Dominguez MD Work Phone: [facility] 04-27-2022 13:37-0500 Systolic blood pressure 138 mm[Hg] Guillaume Dominguez MD Work Phone: [facility] 03-11-2022 09:17-0400 Body height 167.6 cm Oralia Garcia MANAGING EDITOR.YARDING SUPERVISOR Work Phone: [facility] 03-11-2022 09:17-0400 Body weight 112.63 kg Oralia Garcia APRN.YARDING SUPERVISOR Work Phone: [facility] 03-11-2022 09:17-0400 Heart rate 92 /min Oralia Garcia MANAGING EDITOR.YARDING SUPERVISOR Work Phone: [facility] 03-11-2022 09:17-0400 SaO2% (BldA) [Mass fraction] 96 % Oralia Garcia MANAGING EDITOR.YARDING SUPERVISOR Work Phone: [facility] 03-04-2022 15:19-0400 Diastolic blood pressure 77 mm[Hg] Radha Walters MD Work Phone: [facility] 03-04-2022 15:19-0400 Heart rate 103 /min Radha Walters MD Work Phone: [facility] 03-04-2022 15:19-0400 Respiratory rate 18 /min Radha Walters MD Work Phone: [facility] 03-04-2022 15:19-0400 SaO2% (BldA) [Mass fraction] 96 % Radha Walters MD Work Phone: [facility] 03-04-2022 15:19-0400 Systolic blood pressure 107 mm[Hg] Radha Oliver Work Phone: [facility] 02-28-2022 08:37-0400 Diastolic blood pressure 83 mm[Hg] [facility] Work Phone: 02-28-2022 08:37-0400 Heart rate 75 /min [facility] Work Phone: 02-28-2022 08:37-0400 Respiratory rate 18 /min [facility] Work Phone: 02-28-2022 08:37-0400 SaO2% (BldA) [Mass fraction] 95 % [facility] Work Phone: 02-28-2022 08:37-0400 Systolic blood pressure 143 mm[Hg] [facility] Work Phone: 02-28-2022 05:36-0400 Body height 167.64 cm [facility] Work Phone: 02-28-2022 05:36-0400 Body mass index (BMI) [Ratio] 39.8 kg/m2 [facility] Work Phone: 02-28-2022 05:36-0400 Body temperature 98.6 [degF] [facility] Work Phone: 02-28-2022 05:36-0400 Body weight 111.9 kg [facility] Work Phone: 02-21-2022 02:46-0400 Diastolic blood pressure 73 mm[Hg] [facility] Work Phone: 02-21-2022 02:46-0400 Heart rate 75 /min [facility] Work Phone: 02-21-2022 02:46-0400 SaO2% (BldA) [Mass fraction] 97 % [facility] Work Phone: 02-21-2022 02:46-0400 Systolic blood pressure 94 mm[Hg] [facility] Work Phone: 02-21-2022 01:15-0400 Respiratory rate 22 /min [facility] Work Phone: 02-21-2022 01:08-0400 Body height 167.64 cm [facility] Work Phone: 02-21-2022 01:08-0400 Body mass index (BMI) [Ratio] 40 kg/m2 [facility] Work Phone: 02-21-2022 01:08-0400 Body temperature 96.7 [degF] [facility] Work Phone: 02-21-2022 01:08-0400 Body weight 112.6 kg [facility] Work Phone: 02-16-2022 20:55-0400 Respiratory rate 16 /min [facility] Work Phone: 02-16-2022 16:44-0400 Body height 167.64 cm [facility] Work Phone: 02-16-2022 16:44-0400 Body mass index (BMI) [Ratio] 39.6 kg/m2 [facility] Work Phone: 02-16-2022 16:44-0400 Body temperature 96.9 [degF] [facility] Work Phone: 02-16-2022 16:44-0400 Body weight 111.58 kg [facility] Work Phone: 02-16-2022 16:44-0400 Diastolic blood pressure 116 mm[Hg] [facility] Work Phone: 02-16-2022 16:44-0400 Heart rate 78 /min [facility] Work Phone: 02-16-2022 16:44-0400 SaO2% (BldA) [Mass fraction] 98 % [facility] Work Phone: 02-16-2022 16:44-0400 Systolic blood pressure 167 mm[Hg] [facility] Work Phone: 02-10-2022 14:58-0400 Body height 165.1 cm Guillaume Dominguez MD Work Phone: [facility] 02-10-2022 14:58-0400 Body weight 111.58 kg Guillaume Dominguez MD Work Phone: [facility] 02-10-2022 14:58-0400 Diastolic blood pressure 68 mm[Hg] Guillaume Oliver Work Phone: [facility] 02-10-2022 14:58-0400 Heart rate 82 /min Guillaume Dominguez MD Work Phone: [facility] 02-10-2022 14:58-0400 Systolic blood pressure 112 mm[Hg] Guillaume Dominguez MD Work Phone: [facility] 01-19-2022 14:43-0400 Body temperature 98.71 [degF] Comfort Patterson MANAGING EDITOR.CHEMICAL ENGINEERING TECHNICIAN Work Phone: [facility] 01-19-2022 14:43-0400 Body weight 112.49 kg Comfort Patterson MANAGING EDITOR.CHEMICAL ENGINEERING TECHNICIAN Work Phone: [facility] 01-19-2022 14:43-0400 Diastolic blood pressure 64 mm[Hg] Comfort Patterson MANAGING EDITOR.CHEMICAL ENGINEERING TECHNICIAN Work Phone: [facility] 01-19-2022 14:43-0400 Heart rate 72 /min Comfort Patterson MANAGING EDITOR.CHEMICAL ENGINEERING TECHNICIAN Work Phone: [facility] 01-19-2022 14:43-0400 Respiratory rate 24 /min Comfort Patterson MANAGING EDITOR.CHEMICAL ENGINEERING TECHNICIAN Work Phone: [facility] 01-19-2022 14:43-0400 SaO2% (BldA) [Mass fraction] 97 % Comfort Patterson MANAGING EDITOR.CHEMICAL ENGINEERING TECHNICIAN Work Phone: [facility] 01-19-2022 14:43-0400 Systolic blood pressure 112 mm[Hg] Comfort Patterson MANAGING EDITOR.CHEMICAL ENGINEERING TECHNICIAN Work Phone: [facility] 12-17-2021 14:14-0400 Body temperature 96.69 [degF] Sasha Xavi MANAGING EDITOR.YARDING SUPERVISOR Work Phone: [facility] 12-17-2021 14:14-0400 Body weight 114.49 kg Sasha Xavi MANAGING EDITOR.YARDING SUPERVISOR Work Phone: [facility] 12-17-2021 14:14-0400 Diastolic blood pressure 82 mm[Hg] Sasha Xavi MANAGING EDITOR.YARDING SUPERVISOR Work Phone: [facility] 12-17-2021 14:14-0400 Heart rate 90 /min Sasha Xavi MANAGING EDITOR.YARDING SUPERVISOR Work Phone: [facility] 12-17-2021 14:14-0400 Respiratory rate 20 /min Sasha Xavi MANAGING EDITOR.YARDING SUPERVISOR Work Phone: [facility] 12-17-2021 14:14-0400 SaO2% (BldA) [Mass fraction] 97 % Sasha Hurley MANAGING EDITOR.YARDING SUPERVISOR Work Phone: [facility] 12-17-2021 14:14-0400 Systolic blood pressure 130 mm[Hg] Sasha Hurley APRN.YARDING SUPERVISOR Work Phone: [facility] 11-03-2021 10:33-0400 Body height 167.6 cm Gamaliel Alegre MD Work Phone: [facility] 11-03-2021 10:33-0400 Body weight 113.63 kg Gamaliel Alegre MD Work Phone: [facility] 11-03-2021 10:33-0400 Diastolic blood pressure 86 mm[Hg] Gamaliel Leonard i, MD Work Phone: [facility] 11-03-2021 10:33-0400 Heart rate 81 /min Gamaliel Alegre MD Work Phone: [facility] 11-03-2021 10:33-0400 SaO2% (BldA) [Mass fraction] 98 % Gamaliel Alegre MD Work Phone: [facility] 11-03-2021 10:33-0400 Systolic blood pressure 124 mm[Hg] Gamaliel Alegre MD Work Phone: [facility] 10-03-2021 14:32-0400 Body weight 112.95 kg Iban Soto MD Work Phone: [facility] 10-03-2021 14:32-0400 Diastolic blood pressure 68 mm[Hg] Iban Soto MD Work Phone: [facility] 10-03-2021 14:32-0400 Heart rate 60 /min Iban Soto MD Work Phone: [facility] 10-03-2021 14:32-0400 Respiratory rate 20 /min Iban Soto MD Work Phone: [facility] 10-03-2021 14:32-0400 SaO2% (BldA) [Mass fraction] 96 % Iban Soto MD Work Phone: [facility] 10-03-2021 14:32-0400 Systolic blood pressure 126 mm[Hg] Iban Soto MD Work Phone: [facility] 08-22-2021 14:29-0400 Body weight 114.76 kg Curtis Nassar MD Work Phone: [facility] 08-22-2021 14:29-0400 Diastolic blood pressure 74 mm[Hg] Curtis Oliver Work Phone: [facility] 08-22-2021 14:29-0400 Heart rate 55 /min Curtis Nassar MD Work Phone: [facility] 08-22-2021 14:29-0400 Systolic blood pressure 112 mm[Hg] Curtis Nassar MD Work Phone: [facility] Encounters Encounter Date Encounter Type Care Provider Facility Start: 01-26-2025 End: 01-26-2025 ambulatory Guillaume D Talampas Facility:[facility] Start: 12-25-2024 End: 12-25-2024 Telephone encounter Radha Walters MD Work Phone: Dermatology Comment on above: Patient Update Start: 12-19-2024 ambulatory Guillaume Melody Santiagoampas Facilit y:[facility] Start: 11-03-2024 ambulatory Guillaume D Jackampas Facilit y:[facility] Start: 10-31-2024 Registered Referred Deep Dela Cruz MD -[facility] Start: 10-31-2024 End: 10-31-2024 ambulatory Guillaume D Talampas Facility:[facility] Start: 10-26-2024 Registered Referred Deep Dela Cruz MD -[facility] Start: 10-26-2024 End: 10-26-2024 ambulatory Guillaume D Talampas Facility:[facility] Start: 09-26-2024 End: 09-26-[address] Guillaume Dominguez MD Work Phone: [facility] Work Phone: Start: 09-26-2024 End: 09-26-2024 Departed Referred Deep Dela Cruz MD -[facility] Start: 09-26-2024 Registered Referred Deep Dela Cruz MD -[facility] Start: 09-26-2024 End: 09-26-2024 ambulatory Guillaume Dominguez Facility:[facility] Start: 09-21-2024 End: 09-21-[address] Guillaume Dominguez MD Work Phone: [facility] Work Phone: Start: 09-21-2024 End: 09-21-2024 Departed Referred Deep Dela Cruz MD -[facility] Start: 09-21-2024 End: 09-21-2024 ambulatory Deep BABCOCK Facility:[facility] Start: 09-18-2024 End: 09-18-2024 ambulatory Guillaume Dominguez MD Work Phone: [facility] Start: 09-18-2024 End: 09-18-2024 Patient encounter procedure Guillaume Dominguez MD Work Phone: [facility] Comment on above: Population Health Na vigation Outreach ([facility] ) Start: 09-11-2024 End: 09-11-2024 Departed Referred Deep Dela Cruz MD -[facility] Start: 09-11-2024 Registered Referred Deep Dela Cruz MD -[facility] Start: 09-11-2024 End: 09-11-2024 ambulatory Deep BABCOCK Facility:[facility] Start: 08-17-2024 End: 08-17-2024 ambulatory Guillaume Dominguez MD Work Phone: [facility] Start: 08-17-2024 End: 08-17-2024 Patient encounter procedure Guillaume Dominguez MD Work Phone: [facility] Comment on above: Population Health Na vigation Outreach ([facility] ) Start: 08-11-2024 End: 08-11-[address] Guillaume Dominguez MD Work Phone: [facility] Work Phone: Start: 08-11-2024 End: 08-11-2024 Departed Referred Deep Del[facility] Cruz MD -[facility] Start: 08-11-2024 Registered Referred Deep Dela Cruz MD -[facility] Start: 08-11-2024 End: 08-11-2024 ambulatory Guillaume Melody Talampas Facility:[facility] Start: 08-09-2024 End: 08-16-2024 Telephone encounter Adina Lay APRN.[facility] Work Phone: [facility] Comment on above: Medication Dosage Ad justment Start: 08-08-2024 End: 08-08-[address] Guillaume Dominguez MD Work Phone: [facility] Work Phone: Start: 08-08-2024 End: 08-08-2024 Departed Referred Deep Dela Cruz MD -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, subsequent encounter (Primary Dx) Start: 08-03-2024 End: 08-03-2024 ambulatory TIKA JONES Facility:[facility] Start: 08-02-2024 End: 08-02-2024 ambulatory TIKA JONES [facility] Start: 08-02-2024 End: 08-02-2024 Subsequent hospital visit by physician Tika Jones MD Work Phone: [facility] Comment on above: Nontraumatic intracr anial hemorrhage, unspecified (HCC) Start: 08-01-2024 End: 10-31-2024 Telephone encounter Tika Jones MD Work Phone: [facility] Comment on above: [employer] - O ther Intracranial hemorrh age (HCC) (Primary Dx) Nontraumatic intracr anial hemorrhage, unspecified (HCC) (Primary Dx) Start: 07-25-2024 ambulatory Guillaume D Talampas Facilit y:[facility] Start: 07-25-2024 Registered Referred Deep Dela Cruz MD -[facility] Start: 07-10-2024 ambulatory Guillaume D Talampas Facilit y:[facility] Start: 07-10-2024 Registered Referred Deep Dela Cruz MD -[facility] Start: 06-22-2024 End: 06-22-2024 Refill Rajiv Walker MD Work Phone: [facility] Comment on above: Refill Request Start: 06-20-2024 End: 06-20-2024 Departed Referred Deep Dela Cruz MD -[facility] Start: 06-20-2024 End: 06-20-2024 ambulatory Guillaume D Talampas Facility:[facility] Start: 06-13-2024 End: 06-20-2024 Refill Rajiv Walker MD Work Phone: [facility] Comment on above: Refill Request Start: 06-09-2024 ambulatory Guillaume D Talampas Facilit y:[facility] Start: 06-09-2024 Registered Referred Deep Dela Cruz MD -[facility] Start: 06-05-2024 ambulatory Guillaume D Talampas Facilit y:[facility] Start: 06-05-2024 Registered Referred Deep Dela Cruz MD -[facility] Start: 05-29-2024 End: 05-29-2024 Telephone encounter Guillaume Dominguez MD Work Phone: [facility] [place] Comment on above: [facility] requesting records Start: 05-29-2024 ambulatory Guillaume D Talampas Facilit y:[facility] Start: 05-29-2024 Registered Referred Deep Dela Cruz MD -[facility] Start: 05-22-2024 End: 07-04-2024 Telephone encounter Guillaume Dominguez MD Work Phone: [facility] [place] Comment on above: Faxed to [facility] Start: 05-22-2024 ambulatory Guillaume Dominguez Facilit y:[place] [facility] [place] [place] Start: 05-22-2024 Registered Referred Deep Dela Cruz MD -[facility] Start: 05-09-2024 End: 05-11-2024 Telephone encounter Adina Lay APRN.YARDING SUPERVISOR Work Phone: [facility] Start: 05-06-2024 End: 05-06-2024 ambulatory Amanda Patterson MANAGING EDITOR.YARDING SUPERVISOR Work Phone: Critical Care Start: 05-06-2024 Emergency department patient visit GUILLAUME DOMINGUEZ Facility:[facility] Start: 05-05-2024 End: 05-06-2024 Emergency department patient visit Dr. Arden Leger MD -Emergency Department Work Phone: Start: 05-05-2024 End: 05-05-2024 Telemedicine consultation with patient Adina Lay GM.YARDING SUPERVISOR Work Phone: [facility] Start: 05-05-2024 End: 05-05-2024 ambulatory Adina Lay APRN.YARDING SUPERVISOR Work Phone: [facility] Comment on above: Type 2 diabetes [...] Guillaume Dominguez MD Work Phone: Internal Medicine [place] Comment on above: Pruritic condition ( Primary Dx); Anemia, unspecified type; Type 2 diabetes mellitus with peripheral neuropathy (HCC); Vitamin D deficiency; Vitamin B12 deficiency; Pedal edema; Dementia, unspecified dementia severity, unspecified dementia type, unspecified whether behavioral, psychotic, or mood disturbance or anxiety (HCC) Start: 04-28-2024 End: 04-28-2024 ambulatory GUILLAUME DOMINGUEZ Facility:[facility] Start: 04-25-2024 ambulatory Guillaume Toddjulianne Facilit y:[facility] Start: 04-14-2024 End: 04-14-2024 Telephone encounter Oralia Garcia APRN.YARDING SUPERVISOR Work Phone: Pain Management Comment on above: Appointment Start: 03-30-2024 End: 03-30-2024 ambulatory MORAIMA MONTELONGO Facility:[facility] Start: 03-10-2024 End: 03-10-2024 Telephone encounter Moraima Montelongo MD Work Phone: Pain Management Comment on above: Cardiac Clearance (A nticoagulation ) Lumbar spondylosis ( Primary Dx); Spondylolisthesis of lumbar region; Radiculopathy, lumbar region Start: 03-10-2024 End: 03-10-2024 ambulatory ORALIA GARCIA Facility:[facility] Start: 03-10-2024 End: 03-10-2024 Patient encounter procedure Oralia Garcia APRN.YARDING SUPERVISOR Work Phone: Pain Management Comment on above: Lumbar spondylosis ( Primary Dx); Radiculopathy, lumbar region Start: 01-13-2024 Telephone encounter Guillaume ventura MD Work Phone: [facility] [place] Comment on above: requesting allergy l ist to be faxed to [facility] Start: 01-10-2024 End: 01-10-2024 Office outpatient visit 15 minutes Comfort Patterson APRN.CHEMICAL ENGINEERING TECHNICIAN Work Phone: [facility] [place] Comment on above: UTI symptoms (Primar y Dx) Start: 01-10-2024 End: 01-10-2024 ambulatory COMFORT PATTERSON Facility:[facility] Start: 12-31-2023 Telephone encounter Josefa ramirez APRN.YARDING SUPERVISOR Work Phone: [facility] [place] Comment on above: Results Start: 12-27-2023 End: 12-27-2023 ambulatory JOSEFA CAPUTO Facility:[facility] Start: 12-27-2023 End: 12-27-2023 Subsequent hospital visit by physician Laury Hugh [facility] [place] Pace Work Phone: Radiology Comment on above: Acute pain of right knee [M25.561] Start: 12-24-2023 End: 12-24-2023 Patient encounter procedure Josefa Caputo MANAGING EDITOR.YARDING SUPERVISOR Work Phone: [facility] [place] Comment on above: Acute pain of right knee (Primary Dx) Start: 12-21-2023 Refill Guillaume abarca MD Work Phone: [facility] [place] Comment on above: Refill Request Start: 12-10-2023 End: 12-10-2023 Office outpatient visit 25 minutes Guillaume Dominguez MD Work Phone: [facility] Medicine [place] Comment on above: Cognitive impairment (Primary Dx); [...] Guillaume ventura MD Work Phone: [facility] [place] Comment on above: Patient Update; Medi cation Problem Start: 11-05-2023 ambulatory Radha Walters MD Work Phone: Dermatology Comment on above: Medical necessity Start: 10-29-2023 End: 10-29-2023 Patient encounter procedure Curtis Nassar MD Work Phone: Endocrinology [place] Comment on above: Type 2 diabetes leonie itus with peripheral neuropathy (HCC) (Primary Dx) Start: 10-28-2023 Refill Guillaume abarca MD Work Phone: [facility] [place] Comment on above: Refill Request Start: 10-11-2023 End: 10-11-2023 Office outpatient visit 25 minutes Comfort Patterson APRN.CHEMICAL ENGINEERING TECHNICIAN Work Phone: [facility] [place] Comment on [...] Telephone encounter Rajiv domingo MD Work Phone: [facility] Comment on above: Medication Problem Start: 10-04-2023 End: 10-04-2023 Nursing evaluation of patient and report Mi Nurse Work Phone: [facility] [place] Comment on above: Pernicious anemia (P rimary Dx) Start: 09-28-2023 Telephone encounter Rajiv domingo MD Work Phone: [facility] Comment on above: Medication Problem Start: 09-17-2023 Refill Guillaume abarca MD Work Phone: Internal Medicine [place] Comment on above: Refill Request Start: 09-06-2023 End: 09-06-2023 Nursing evaluation of patient and report Mi Nurse Work Phone: [facility] [place] Comment on above: Pernicious anemia (P rimary Dx) Start: 08-16-2023 Telephone encounter Josefa ramirez APRN.YARDING SUPERVISOR Work Phone: Internal Medicine [place] Comment on above: Orders Medication Problem Start: 08-13-2023 Telephone encounter Guillaume ventura MD Work Phone: [facility] [place] Comment on above: Insurance Authorizat ion PA required Start: 08-13-2023 End: 08-13-2023 Patient encounter procedure Josefa Caputo MANAGING EDITOR.YARDING SUPERVISOR Work Phone: Internal Medicine [place] Comment on above: Current moderate epi sode [...] report Mi Nurse Work Phone: Family Medicine [place] Comment on above: Pernicious anemia (P rimary Dx) Start: 07-29-2023 End: 07-29-2023 Patient encounter procedure Radha Walters MD Work Phone: Dermatology Comment on above: Seborrheic keratosis (Primary Dx); Lichen sclerosus et atrophicus; 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 Start: 07-21-2023 End: 07-21-2023 Subsequent hospital visit by physician Diagnostic Mammo [facility] Mammogram Start: 07-08-2023 End: 07-08-2023 Patient encounter procedure Rajiv Walker MD Work Phone: Endocrinology [place] Comment on above: 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, without long-term current use of insulin (HCC) (Primary Dx); Class 1 obesity due to excess calories with serious comorbidity and body mass index (BMI) of 34.0 to 34.9 in adult Start: 07-07-2023 Telephone encounter Guillaume ventura MD Work Phone: Internal Medicine [place] Comment on above: Abnormal mammogram l nikki [...] 06-12-2023 [facility] Start: 05-14-2023 End: 05-14-2023 Office outpatient visit 25 minutes Guillaume Dominguez MD Work Phone: Internal Medicine [place] Comment on above: Memory difficulties (Primary Dx); Vitamin D deficiency; Chronic cough; Type 2 diabetes mellitus with peripheral neuropathy (HCC); Breast cancer screening by mammogram; Encounter for immunization Start: 05-04-2023 End: 05-04-2023 Nursing evaluation of patient and report Mi Nurse Work Phone: [facility] Comment on above: Pernicious anemia (P rimary Dx) Start: 03-30-2023 End: 03-30-2023 ambulatory Curtis Nassar MD Work Phone: [facility] Comment on above: Type 2 diabetes leonie itus with peripheral neuropathy (HCC) (Primary Dx) Start: 03-30-2023 End: 03-30-2023 Telemedicine consultation with patient Curtis Nassar MD Work Phone: [facility] Start: 03-18-2023 Refill Josefa Caputo APRN.CNP Work Phone: Internal [facility] Comment on above: Refill Request Start: 03-04-2023 End: 03-04-2023 Nursing evaluation of patient and report Mi Nurse Work Phone: [facility] Comment on above: Pernicious anemia (P rimary Dx) Start: 02-26-2023 End: 02-26-2023 [facility] Work [facility]: Start: 02-19-2023 Refill Guillaume abarca MD Work Phone: Internal Medicine [place] Comment on above: Refill Request Start: 02-04-2023 End: 02-04-2023 Nursing evaluation of patient and report Mi Nurse Work Phone: [facility] Comment on above: Pernicious anemia (P rimary Dx) Start: 02-02-2023 Telephone encounter Josefa Cleav er MANAGING EDITOR.YARDING SUPERVISOR Work Phone: [facility] Comment on above: Orders Start: 02-02-2023 End: 02-02-2023 Patient encounter procedure Josefa Flynn GM.YARDING SUPERVISOR Work Phone: Internal [facility] [place] Comment [...] [I49.9] Start: 01-27-2023 Telephone encounter Jo-Ann abarca medical records supervisor Lab Comment on above: Reminder Call Start: 01-13-2023 Telephone encounter Guillaume ventura MD Work Phone: Internal Medicine [place] Comment on above: Forms Start: 01-11-2023 End: [...] Telephone encounter Curtis landin MD Work Phone: [facility] Comment on above: Medication Problem Start: 01-04-2023 End: 01-04-2023 Nursing evaluation of patient and report Mi Nurse Work Phone: [facility] [place] Comment on above: Pernicious anemia (P rimary Dx) Start: 12-30-2022 End: 12-30-2022 Patient encounter procedure Curtis Nassar MD Work Phone: [facility] Comment on above: DM (diabetes mellitu s), type 2 with neurological complications (HCC) (Primary Dx); Type 2 diabetes mellitus with peripheral neuropathy (HCC) Start: 12-25-2022 Telephone encounter Moraima allen MD Work Phone: Pain Management Comment on above: Patient Question Start: 12-04-2022 Refill Guillaume abarca MD Work Phone: Internal [facility] Start: 11-06-2022 End: 11-06-2022 ambulatory Nhi O'Kwame PT [facility] Comment on above: Spinal stenosis of l umbar region, unspecified whether neurogenic claudication present (Primary Dx); Lumbar spondylosis; Spondylolisthesis of lumbar region; Radiculopathy, lumbar region Start: 11-03-2022 End: 11-03-2022 Nursing evaluation of patient and report Mi Nurse Work Phone: [facility] Comment on above: Pernicious anemia (P rimary Dx) Start: 10-27-2022 Telephone encounter Josefa ramirez APRN.YARDING SUPERVISOR Work Phone: [facility] Comment on above: [employer] Base [employer]er - O ther Start: 10-27-2022 End: 10-27-2022 Patient encounter procedure Josefa Caputo APRN.YARDING SUPERVISOR Work Phone: [facility] Comment on above: Current moderate epi sode of major depressive disorder, unspecified whether recurrent (HCC) (Primary Dx); Anxiety disorder, unspecified type; Radiculopathy, lumbar region; Chronic SI joint pain; Single subsegmental pulmonary embolism without acute cor pulmonale (HCC); Type 2 diabetes mellitus with peripheral neuropathy (HCC) Start: 10-12-2022 End: 10-12-2022 ambulatory Nhi O'Kwame PT [facility] Comment on above: Spinal stenosis of l umbar region, unspecified whether neurogenic claudication present (Primary Dx); Lumbar spondylosis; Spondylolisthesis of lumbar region; Radiculopathy, lumbar region Refill Request Start: 10-02-2022 Telephone encounter Moraima allen MD Work Phone: Pain Management Comment on above: Anticoagulation Start: 09-29-2022 End: 09-29-2022 Nursing evaluation of patient and report Mi Nurse Work Phone: [facility] [place] Comment on above: Pernicious anemia (P rimary Dx) Start: 09-25-2022 Refill Curtis allen MD Work Phone: Endocrinology [place] Comment on above: Refill Request Start: 09-23-2022 End: 09-23-2022 Refill Guillaume Dominguez MD Work Phone: [facility] [place] Comment on above: Refill Request Kidney stone [...] Start: 09-10-2022 End: 09-10-2022 ambulatory Lucia Rojas GI PHYSICIAN Work Phone: [facility] Comment on above: Spinal stenosis of l umbar region, unspecified whether neurogenic claudication present (Primary Dx); Lumbar spondylosis; Spondylolisthesis of lumbar region; Radiculopathy, lumbar region Start: 09-03-2022 End: 09-03-2022 ambulatory Veda Vtial PT Work Phone: [facility] Comment on above: Spinal stenosis of l umbar region, unspecified whether neurogenic claudication present (Primary Dx); Lumbar spondylosis; Spondylolisthesis of lumbar region; Radiculopathy, lumbar region Start: 09-01-2022 End: 09-01-2022 Nursing evaluation of patient and report Mi Nurse Work Phone: [facility] Comment on above: Pernicious anemia (P rimary Dx) Start: 09-01-2022 End: 09-01-2022 ambulatory Veda Vital PT Work Phone: [facility] Comment on above: Spinal stenosis of l umbar region, unspecified whether neurogenic claudication present (Primary Dx); Lumbar spondylosis; Spondylolisthesis of lumbar region; Radiculopathy, lumbar region Start: 08-24-2022 Telephone encounter Guillaume ventura MD Work Phone: [facility] [place] Comment on above: Patient Question Patient Update; Appo intment Start: 08-18-2022 End: 08-18-2022 ambulatory Veda Vital PT Work Phone: [facility] Comment [...] Refill Curtis allen MD Work Phone: Endocrinology [place] Comment on above: Refill Request Start: 08-04-2022 End: 08-04-2022 Nursing evaluation of patient and report Mi Nurse Work Phone: [facility] [place] Comment on above: Pernicious anemia (P rimary Dx) Start: 08-03-2022 Telephone encounter Guillaume ventura MD Work Phone: [facility] [place] Comment on above: handicap prescriptio n Start: 07-31-2022 Telephone encounter Moraima allen MD Work Phone: Pain Management Comment on above: Patient Question Start: 07-07-2022 End: 07-07-2022 Nursing evaluation of patient and report Mi Nurse Work Phone: [facility] [place] Comment on above: Pernicious anemia (P rimary Dx) Start: 07-07-2022 End: 07-07-2022 Office outpatient visit 15 minutes Guillaume Dominguez MD Work Phone: [facility] [place] Comment on above: Spondylolisthesis of lumbar region; [...] Guillaume ventura MD Work Phone: Internal [facility] [place] Comment on above: Patient Update Start: 06-17-2022 Telephone encounter Curtis landin MD Work Phone: [facility] Comment on above: Medication Question Start: [...] Guillaume Dominguez MD Work Phone: [facility] [place] Comment on above: Crushing injury of r ight middle finger, sequela (Primary Dx); Renal calculus, left Start: 05-07-2022 Telephone encounter Maykel Patel MD Work Phone: Urology Comment on above: Eliquis question Start: 05-06-2022 End: 05-06-2022 Subsequent hospital visit by physician La[facility] [place] Work Phone: Radiology Comment on above: Crushing injury of r ight middle finger, initial encounter [S67.192A] Start: 05-06-2022 End: 05-06-2022 Patient encounter procedure Janae Sandoval APRN.YARDING SUPERVISOR Work Phone: [place] [facility] Comment on above: Crushing injury of r ight middle finger, initial encounter (Primary Dx); Open fracture of tuft of distal phalanx of finger; Nausea Start: 05-06-2022 ambulatory Guillaume abarca MD Work Phone: Internal [facility] [place] Comment on above: Finger Injury Start: 05-04-2022 End: 05-04-2022 Nursing evaluation of patient and report Mi Nurse Work Phone: [facility] [place] Comment on above: Pernicious anemia (P rimary Dx) Start: 04-29-2022 End: 04-29-2022 Patient encounter procedure Moraima Montelongo MD Work Phone: Pain Management Comment on above: Lumbosacral facet tawanna int syndrome (Primary Dx); Spondylolisthesis of lumbar region; Spinal stenosis of lumbar region, unspecified whether neurogenic claudication present Start: 04-28-2022 End: 04-28-2022 ambulatory Respiratory Therapist [facility] Work Phone: Pulmonary Medicine Comment on above: Spirometry Start: 04-28-2022 End: 04-28-2022 Patient encounter procedure Respiratory Therapist [facility] Work Phone[facility] Start: 04-27-2022 End: 04-27-2022 Office outpatient visit 40 minutes Guillaume Dominguez MD Work Phone: Internal Medicine [place] Comment on above: FIELD (dyspnea on exer tion) (Primary Dx); Dietary iron deficiency without anemia; Grade I diastolic dysfunction; Chronic cough; Renal calculus, left; Primary hypertension; Hypoalbuminemia; DM (diabetes mellitus), type 2 with neurological complications ([facility]); B12 deficiency; Vitamin D deficiency; Irregular [...] 04-08-2022 Subsequent hospital visit by physician Xr [facility] [place] Work Phone: Radiology Comment on above: Renal calculus, left [N20.0] Start: 04-06-2022 End: 04-06-2022 Nursing evaluation of patient and report Mi Nurse Work Phone: [facility] Comment on above: Pernicious anemia (P rimary Dx) Start: 03-23-2022 Refill Curtis allen MD Work Phone: Endocrinology [place] Comment on above: Refill Request Start: 03-19-2022 Telephone encounter Radha sutherland MD Work Phone: Dermatology Comment on above: Patient Question Start: 03-12-2022 Orders Only Moraima Montelongo MD Work Phone: Pain Management Comment on above: Chronic left SI join t pain (Primary Dx); Sacroiliac joint pain Start: 03-11-2022 End: 03-11-2022 Patient encounter procedure Oralia Shea Pura MANAGING EDITOR.YARDING SUPERVISOR Work Phone: Pain Management Comment on [...] report Mi Nurse Work Phone: Family Medicine [place] Comment on above: Pernicious anemia (P rimary Dx); Need for vaccination Start: 02-28-2022 End: 02-28-2022 Emergency department patient visit [facility] Start: 02-27-2022 Telephone encounter Moraima allen MD Work Phone: Pain Management Comment on above: Patient Update Start: 02-21-2022 End: 02-21-2022 Emergency department patient visit [facility] Start: 02-16-2022 End: 02-16-2022 Emergency department patient visit [facility] Start: 02-16-2022 Telephone encounter Moraima allen MD Work Phone: Pain Management Comment on above: Medication Problem ( Stopped Eliquis for procedure-now has chest pain ) Start: 02-10-2022 End: 02-10-2022 Office outpatient visit 25 minutes Guillaume Dominguez MD Work Phone: Internal Medicine [place] Comment on above: Fatigue, unspecified type (Primary [...] Guillaume ventura MD Work Phone: Internal Medicine [place] Comment on above: Orders Start: 01-19-2022 End: 01-19-2022 Patient encounter procedure Comfort Patterson MANAGING EDITOR.CHEMICAL ENGINEERING TECHNICIAN Work Phone: Internal [facility] [place] Comment on above: Fatigue, unspecified type (Primary Dx); Iron deficiency Start: 01-12-2022 Orders Only Moraima Montelongo MD Work Phone: Pain Management Comment on above: Chronic left SI join t pain (Primary Dx); Sacroiliac joint pain; SI joint arthritis; Chronic SI joint pain Start: 01-05-2022 End: 01-05-2022 Orders Only Guillaume Dominguez MD Work Phone: Internal Medicine [place] Comment on above: Elevated ferritin (P rimary Dx) Pernicious anemia (P rimary Dx) Start: 12-17-2021 End: 12-17-2021 Patient encounter procedure Sasha Hurley APRN.YARDING SUPERVISOR Work Phone: [place] [facility] Comment on above: Acute UTI (Primary D x); Urinary frequency; Glucosuria Start: 12-15-2021 Telephone encounter Guillaume ventura MD Work Phone: Internal Medicine [place] Comment on above: urine symptoms Start: 12-05-2021 Orders Only Gamaliel madrid MD Work Phone: Cardiology Start: 12-04-2021 Telephone encounter Gamaliel marcial MD Work Phone: Cardiology Comment on above: Patient Update Start: 11-03-2021 End: 11-03-2021 Nursing evaluation of patient and report Mi Nurse Work Phone: [facility] Comment on above: Pernicious anemia (P rimary [...] Guillaume abarca MD Work Phone: Internal Medicine [place] Comment on above: Refill Request Start: 10-07-2021 Telephone encounter Moraima allen MD Work Phone: Pain Management Comment on above: Appointment Start: 10-06-2021 Telephone encounter Tomer Soto MD Work Phone: Family [facility] Comment on above: Results Start: 10-03-2021 End: 10-03-2021 Subsequent hospital visit by physician La[facility] [place] Work Phone: Radiology Comment on above: Shortness of breath on exertion [R06.02] Start: 10-03-2021 End: 10-03-2021 Patient encounter procedure Iban Soto MD Work Phone: [facility] [place] Comment on above: Irregular heart beat (Primary Dx); Shortness of breath on exertion; Fatigue, unspecified type; Skin tear of left forearm without complication, initial encounter; Lightheadedness Start: 09-29-2021 Telephone encounter Guillaume ventura MD Work Phone: [facility] [place] Comment on above: Results Start: 09-22-2021 Refill Curtis allen MD Work Phone: [facility] Comment on above: Refill Request Start: 09-01-2021 End: 09-01-2021 Nursing evaluation of patient and report Mi Nurse Work Phone: [facility] Comment on above: Pernicious anemia (P rimary Dx) Start: 08-22-2021 End: 08-22-2021 Patient encounter procedure Curtis Nassar MD Work Phone: [facility] Comment on above: H/O gastric bypass ( Primary Dx); DM (diabetes mellitus), type 2 with neurological complications (HCC); Radiculopathy of thoracic region Start: 10-03-2018 End: 10-03-2018 Patient encounter procedure [facility] Start: 09-08-2017 End: 09-08-2017 [facility] Facility:[facility] Procedures Date Procedure Procedure Detail Performing Clinician [...] Comment: Speci men Type: BLOOD SPECIMENOrdering Facility: [facility] Address: [address] [place] [address] Performed By: #### T SCR ####[facility] BLOOD BANKCLIA [id number] [address] OF [place] Start: 05-05-2024 Computed tomography [...] 07-21-2023 Digital breast tomosynthesis unilateral Josefa Flynn MANAGING EDITOR.YARDING SUPERVISOR Work Phone: Start: 06-12-2023 Plain X-ray of femur Start: 06-12-2023 CT of head without contrast Start: 06-12-2023 Pelvis X-ray Start: 05-14-2023 MoSo COVI D-19 VACCINE (2023-24 SEASON) AGE 12+ YR Guillaume Dominguez MD Work Phone: Start: 02-26-2023 Plain x-ray of pelvi s and lower extremity Start: 02-26-2023 CT of head without contrast Start: 02-02-2023 INFLUENZA VACCINE, P RSV FREE, AGE 65+ YR, HIGH DOSE, QUADRIVALENT (FLUZONE HIGH-DOSE) Josefa Caputo MANAGING EDITOR.YARDING SUPERVISOR Work Phone: Start: 01-28-2023 Myocardial spect [...] Radex fingr minimum 2 views Janae Sandoval MANAGING EDITOR.[facility] Work Phone: Start: 04-28-2022 Brncdilat rspse [...] BOOSTER VACCINE, AGE 12+ YR Comfort Patterson APRN.CHEMICAL ENGINEERING TECHNICIAN Work Phone: Start: 02-28-2022 Computed tomography of [...] Estimated Glomerular Filtration Rate for Kidney Health [facility] Start: 05-09-2025 End: 05-09-2025 Patient encounter procedure 05/09/2025 2:00 PM EST Office Visit [facility] [place] [address] [place] [address] Guillaume Dominguez MD [address] [place] [address] 6 month follow up Internal Medicine [place] Comment on above: 6 month follow up Start: 01-29-2025 Influenza [facility] Start: 12-02-2024 Glaucoma screening Dilated Retinal Exam [facility] Start: 11-08-2024 End: 11-08-2024 Patient encounter procedure 11/08/2024 10:40 AM EDT Office Visit Internal Medicine [place] [address] [place] [address] Guillaume Dominguez MD [address] [place] [address] 6 month follow up Internal [facility] [place] Comment on above: 6 month follow up Start: 09-27-2024 Glaucoma screening Dilated Retinal Exam [facility] Start: 08-26-2024 Hepatitis B surface antibody level LDL Cholesterol [facility] Start: 08-03-2024 End: 08-03-2024 Patient encounter procedure 08/03/2024 1:45 PM EST Appointment RADIO CT SCAN [place] CHEMICAL ENGINEERING TECHNICIAN [address] [facility] [place] [address] CT BRAIN WO RADIO [address] SCAN [place] CHEMICAL ENGINEERING TECHNICIAN Comment on above: CT BRAIN WO Start: 08-03-2024 End: 08-03-2024 Patient encounter procedure Geriatrics Comment on above: Mild cognitive impairment [G31.84] [address] today Start: 08-01-2024 End: 08-01-2025 CT Head WO contrast CT head wo IV contrast Imaging Routine Nontraumatic intracranial hemorrhage, unspecified (HCC) Expected: 08/01/2024, Expires: 08/01/2025 [facility] Work Phone: Comment on above: Expected: 08/01/2024, Expires: Start: 07-13-2024 End: 07-13-2024 Patient encounter procedure RADIO CT SCAN [place] CHEMICAL ENGINEERING TECHNICIAN Comment on above: brain wo [address] CT BRAIN WO Start: 06-20-2024 End: 06-20-2024 Patient encounter procedure 06/20/2024 9:00 AM EST Office Visit Urology [address] [address] Maykle Patel Jr., MD [address] [place] [address] 1 year follow up Urology Comment on above: 1 year follow up Start: 05-31-2024 Advance Directive Discussion Advance Directive Discussion [facility] Start: 05-31-2024 Medicare Advantage Annual Wellness Visit Medicare Advantage Annual Wellness Visit [facility] Start: 05-18-2024 Diabetes: Urine Albumin-Creatinine Ratio for Kidney Health Diabetes: Urine Albumin-Creatinine Ratio for Kidney Health [facility] Start: 05-18-2024 Hepatitis B screening Urine Albumin:Creatinine Ratio [facility] Start: 05-18-2024 Hepatitis B surface antibody level LDL Cholesterol [facility] Start: 05-06-2024 End: 05-06-2024 Optx fem shft fx w/plate/screws w/wo cerclage ORIF FEMUR WITH PLATING Periprosthetic fracture of shaft of femur 05/06/2024 3:50 PM EST [place] Start: 05-06-2024 End: 05-06-2024 Craniectomy hmtma supratentorial extra/subdural CRANIOTOMY FOR EVACUATION OF SUPRATENTORIAL SUBDURAL HEMATOMA Subdural hematoma (HCC) 05/06/2024 8:00 AM EST [place] Start: 05-06-2024 [facility] Start: 05-06-2024 Aspiration precautions [facility] Start: 05-05-2024 End: 05-05-2024 Follow-up encounter 05/05/2024 10:00 AM EST [facility] [place] [id number] [place] [phone] Adina Lay APRN.YARDING SUPERVISOR [address] [place] [address] 6 month follow up [facility] [place] Comment on above: 6 month follow up Start: 05-05-2024 End: 05-05-2024 Patient encounter procedure 05/05/2024 10:00 AM EST Office Visit End[facility] [place] [id number] [place] [phone] Adina Lay APRN.YARDING SUPERVISOR [address] [place] [address] 6 month follow up [facility] [place] Comment on above: 6 month follow up Start: 04-28-2024 End: 04-28-2024 Patient encounter procedure 04/28/2024 4:00 PM EST Office Visit Internal Medicine [place] [address] [place] [address] Guillaume Dominguez MD [address] [place] [address] 6 month follow up Internal Medicine [place] Comment on above: 6 month follow up Start: 03-30-2024 End: 03-30-2024 Admission to same day surgery center 03/30/2024 1:30 PM EDT - 03/30/2024 1:55 PM EDT Surgery [facility] [address] [place] [address] Moraima Montelongo MD [address] [facility] [place] [address] INJECTION(S) ANESTHETIC AGENT AND STEROID TRANSFORAMINAL EPIDURAL LUMBAR W/IMAGE GUIDANCE FLUORO OR CT [facility] Comment on above: INJECTION(S) ANESTHETIC [...] physician 03/30/2024 1:30 PM EDT Hospital Encounter [facility] [address] [place] [address] Moraima Montelongo MD [address] [facility] [place] [address] Lumbar spondylosis [M47.816], Spondylolisthesis of lumbar region [M43.16], Radiculopathy, lumbar region [M54.16] [facility] Comment on above: Lumbar spondylosis [M47.816], Spondyloli sthesis of lumbar region [M43.16], Radiculopathy, lumbar region [M54.16] Start: 03-30-2024 End: 03-30-2024 Admission to same day surgery center 03/30/2024 7:53 AM EDT - 03/30/2024 8:18 AM EDT Surgery [facility] [address] [place] [address] Moraima Montelongo MD [address] [facility] [place] [address] INJECTION(S) ANESTHETIC AGENT AND STEROID TRANSFORAMINAL EPIDURAL LUMBAR W/IMAGE GUIDANCE FLUORO OR CT [facility] Comment on above: INJECTION(S) ANESTHETIC [...] physician 03/30/2024 7:53 AM EDT Hospital Encounter [facility] [address] [place] [address] Moraima Montelongo MD [address] [facility] [place] [address] Lumbar spondylosis [M47.816], Spondylolisthesis of lumbar region [M43.16], Radiculopathy, lumbar region [M54.16] [facility] Comment on above: Lumbar spondylosis [M47.816], Spondyloli sthesis of lumbar region [M43.16], Radiculopathy, lumbar region [M54.16] Start: 03-09-2024 End: 03-09-2024 Patient encounter procedure 03/09/2024 10:00 AM EDT Office Visit Dermatology [address] [address] Radha Walters MD [address] [place] [address] follow up Dermatology Comment on above: follow up Start: 02-27-2024 Hemoglobin A1c measurement HbA1C [facility] Start: 02-15-2024 End: 02-15-2024 Patient encounter procedure 02/15/2024 9:15 AM EDT Office Visit Urology [address] [place] [id number] Maykel Patel Jr., MD [address] [place] [address] 1 year follow up Urology Comment on above: 1 year follow up Start: 02-11-2024 End: 02-11-2024 Patient encounter procedure 02/11/2024 11:00 AM EDT Office Visit Internal [place] [address] [place] [address] [phone] Josefa Caputo APRN.[facility] [address] [place] [address] [phone] 3 month follow up [facility] [place] Comment on above: 3 month follow up Start: 02-08-2024 End: 02-08-2024 Patient encounter procedure 02/08/2024 1:40 PM EDT Office Visit Internal [facility] [place] [address] [place] [address] [phone] Damaris Knott MD [address] [place], [place] [phone] srinivas consult with Dr. Knott per pcp [facility] [place] Comment on above: srinivas consult with Dr. Knott per pcp Start: 02-03-2024 ANNUAL PCP TEAM CHRONIC DISEASE VISIT ANNUAL PCP TEAM CHRONIC DISEASE VISIT [facility] Start: 02-03-2024 BP CONTROLLED (<130/80) BP CONTROLLED (<130/80) [facility] Start: 01-30-2024 COVID-19 Vaccine ( season) COVID-19 Vaccine () [facility] Start: 01-30-2024 Covid-19 Vaccine ( season) Covid-19 Vaccine () [facility] Start: 01-30-2024 Influenza vaccination [facility] Start: 01-26-2024 End: 01-26-2024 Patient encounter procedure [facility] Comment on above: Nurse Visit srinivas consult with Dr Dara Knott per pcp Start: 01-12-2024 BP CONTROLLED (<130/80) BP CONTROLLED (<130/80) [facility] Start: 01-10-2024 End: 04-10-2024 Urinalysis complete panel - Urine URINALYSIS WITH MICROSCOPIC, REFLEX CULTURE Lab Routine UTI symptoms Expected: 01/10/2024, Expires: 04/10/2024 [facility] Comment on above: Expected: 01/10/2024, Expires: 4 Start: 12-11-2023 End: 03-11-2024 25-hydroxyvitamin D3 [Mass/volume] in Serum or Plasma VITAMIN D 25 HYDROXY Lab Routine Vitamin D deficiency History of Jordin-en-Y gastric bypass Encounter for long-term current use of medication Expected: 12/11/2023, Expires: 03/11/2024 [facility] Comment on above: Expected: 12/11/2023, Expires: 4 Start: 12-11-2023 End: 03-11-2024 CBC panel - Blood by Automated count COMPLETE BLOOD COUNT Lab Routine History of Jordin-en-Y gastric bypass Iron deficiency Encounter for long-term current use of medication Expected: 12/11/2023, Expires: 03/11/2024 [facility] Comment on above: Expected: 12/11/2023, Expires: 4 Start: 12-11-2023 End: 03-11-2024 Cobalamin (Vitamin B12) [Mass/volume] in Serum or Plasma VITAMIN B12 Lab Routine Vitamin B12 deficiency History of Jordin-en-Y gastric bypass Encounter for long-term current use of medication Expected: 12/11/2023, Expires: 03/11/2024 [facility] Comment on above: Expected: 12/11/2023, Expires: Start: 12-11-2023 End: 03-11-2024 Comprehensive metabolic 2000 panel - Serum or Plasma COMPREHENSIVE METABOLIC PANEL Lab Routine 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 Encounter for long-term current use of medication Expected: 12/11/2023, Expires: 03/11/2024 [facility] Comment on above: Expected: 12/11/2023, Expires: Start: 12-11-2023 End: 03-11-2024 Ferritin [Mass/volume] in Serum or Plasma FERRITIN Lab Routine History of Jordin-en-Y gastric bypass Iron deficiency Encounter for long-term current use of medication Expected: 12/11/2023, Expires: 03/11/2024 [facility] Comment on above: Expected: 12/11/2023, Expires: Start: 12-11-2023 End: 03-11-2024 Folate [Mass/volume] in Serum or Plasma FOLATE, SERUM Lab Routine History of Jordin-en-Y gastric bypass Encounter for long-term current use of medication Expected: 12/11/2023, Expires: 03/11/2024 [facility] Comment on above: Expected: 12/11/2023, Expires: Start: 12-11-2023 End: 03-11-2024 Hemoglobin A1c in Blood HEMOGLOBIN A1C Lab Routine 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 Encounter for long-term current use of medication Expected: 12/11/2023, Expires: 03/11/2024 [facility] Work Phone: Comment on above: Expected: 12/11/2023, Expires: Start: 12-11-2023 End: 03-11-2024 Iron and Iron binding capacity panel - Serum or Plasma IRON AND TIBC Lab Routine History of Jordin-en-Y gastric bypass Iron deficiency Encounter for long-term current use of medication Expected: 12/11/2023, Expires: 03/11/2024 [facility] Comment on above: Expected: 12/11/2023, Expires: Start: 12-11-2023 End: 03-11-2024 Lipid 1996 panel - Serum or Plasma LIPID PANEL BASIC Lab Routine Mixed hyperlipidemia History of Jordin-en-Y gastric bypass Encounter for long-term current use of medication Expected: 12/11/2023, Expires: 03/11/2024 [facility] Comment on above: Expected: 12/11/2023, Expires: Start: 12-11-2023 End: 03-11-2024 LIPID PANEL, NONFASTING LIPID PANEL, NONFASTING Lab Routine Mixed hyperlipidemia History of Jordin-en-Y gastric bypass Encounter for long-term current use of medication Expected: 12/11/2023, Expires: 03/11/2024 [facility] Comment on above: Expected: 12/11/2023, Expires: Start: 12-11-2023 End: 03-11-2024 Retinol [Mass/volume] in Serum or Plasma VITAMIN A/RETINOL Lab Routine History of Jordin-en-Y gastric bypass Encounter for long-term current use of medication Expected: 12/11/2023, Expires: 03/11/2024 [facility] Comment on above: Expected: 12/11/2023, Expires: Start: 12-11-2023 End: 03-11-2024 Zinc [Mass/volume] in Serum or Plasma ZINC BLD Lab Routine History of Jordin-en-Y gastric bypass Encounter for long-term current use of medication Expected: 12/11/2023, Expires: 03/11/2024 [facility] Comment on above: Expected: 12/11/2023, Expires: Start: 12-10-2023 End: 12-10-2023 Patient encounter procedure 12/10/2023 3:40 PM EDT Office Visit Internal Medicine [place] [address] [place] [address] Guillaume Dominguez MD [address] [place] [address] 6 month follow up [facility] [place] Comment on above: 6 month follow up Start: 11-28-2023 ANNUAL PCP TEAM CHRONIC DISEASE VISIT ANNUAL PCP TEAM CHRONIC DISEASE VISIT [facility] Start: 11-28-2023 SHINGRIX VACCINE (2 of 3) SHINGRIX VACCINE (2 of 3) [facility] Comment on above: Postponed from 11/25/2012 (Declined at t his time) Start: 11-28-2023 Urine microalbumin profile [facility] Comment on above: Postponed from 10/10/2016 (Declined at t his time) Start: 11-25-2023 End: 11-25-2023 Follow-up encounter 11/25/2023 9:00 AM EDT [facility] Dermatology [address] [address] Radha Walters MD [address] [place] [address] 4 MONTH FOLLOW UP Dermatology Comment on above: 4 MONTH FOLLOW UP Start: 11-11-2023 End: 11-11-2023 Patient encounter procedure 11/11/2023 10:00 AM EDT Office Visit Dermatology [address] [address] Radha Walters MD [address] [place] [address] 4 MONTH FOLLOW UP Dermatology Comment on above: 4 MONTH FOLLOW UP Start: 11-04-2023 End: 11-04-2023 Nursing evaluation of patient and report 11/04/2023 1:30 PM EDT Nurse Visit [facility] [place] [address] [place] [place] [id number] Nurse, Ct [address] [place] [phone] B-12 injection [facility] Comment on above: B-12 injection Start: 10-29-2023 End: 10-29-2023 Patient encounter procedure 10/29/2023 3:00 PM EDT Office Visit Endocrinology [place] [address] [place] [address] [place] [address] [address] [place] [address] 6 month follow up Endocrinology [place] Comment on above: 6 month follow up Start: 10-28-2023 ANNUAL PCP TEAM CHRONIC DISEASE VISIT ANNUAL PCP TEAM CHRONIC DISEASE VISIT [facility] Start: 10-28-2023 BP CONTROLLED (<130/80) BP CONTROLLED (<130/80) [facility] Start: 10-11-2023 End: 10-11-2023 Patient encounter procedure 10/11/2023 11:20 AM EDT Office Visit Internal [facility] [place] [address] [facility] [place], [place] [phone] Comfort Patterson APRN.CHEMICAL ENGINEERING TECHNICIAN [address] [place] [address] physical eval- for assisted living [facility] [place] Comment on above: physical eval- for assisted living Start: 10-04-2023 End: 10-04-2023 Nursing evaluation of patient and report 10/04/2023 1:30 PM EDT Nurse Visit [facility] Medicine [place] [address] [facility] [place], [place] [phone] Nurse, Ct [address] [place] [address] B-12 injection [facility] [place] Comment on above: B-12 injection Start: 09-13-2023 Covid-19 Vaccine () Covid-19 Vaccine () [facility] Start: 08-17-2023 End: 11-16-2023 Hemoglobin A1c in Blood HGB A1C Lab Routine Expected: 08/17/2023 (Approximate), Expires: 11/16/2023 [facility] Work Phone: Comment on above: Expected: 08/17/2023 (Approximate), Expi res: 11/16/2023 Start: 08-17-2023 Hemoglobin A1c measurement HbA1C [facility] Start: 08-16-2023 End: 11-15-2023 25-hydroxyvitamin D3 [Mass/volume] in Serum or Plasma VITAMIN D 25 HYDROXY Lab Routine Vitamin D deficiency Expected: 08/16/2023, Expires: 11/15/2023 [facility] Work Phone: Comment on above: Expected: 08/16/2023, Expires: Start: 08-16-2023 ANNUAL PCP TEAM CHRONIC DISEASE VISIT ANNUAL PCP TEAM CHRONIC DISEASE VISIT [facility] Start: 08-16-2023 BP CONTROLLED (<130/80) BP CONTROLLED (<130/80) [facility] Start: 08-16-2023 End: 11-15-2023 CBC W Auto Differential panel - Blood CBC + DIFF Lab Routine Encounter for therapeutic drug monitoring Iron deficiency Expected: 08/16/2023, Expires: 11/15/2023 [facility] Work Phone: Comment on above: Expected: 08/16/2023, Expires: Start: 08-16-2023 End: 11-15-2023 Cobalamin (Vitamin B12) [Mass/volume] in Serum or Plasma VITAMIN B12 BLOOD Lab Routine Vitamin B12 deficiency Iron deficiency Expected: 08/16/2023, Expires: 11/15/2023 [facility] Work Phone: Comment on above: Expected: 08/16/2023, Expires: Start: 08-16-2023 End: 11-15-2023 Comprehensive metabolic 2000 panel - Serum or Plasma COMP METABOLIC PANEL Lab Routine Encounter for therapeutic drug monitoring Expected: 08/16/2023, Expires: 11/15/2023 [facility] Work Phone: Comment on above: Expected: 08/16/2023, Expires: 4 Start: 08-16-2023 End: 11-15-2023 Ferritin [Mass/volume] in Serum or Plasma FERRITIN BLD Lab Routine Iron deficiency Expected: 08/16/2023, Expires: 11/15/2023 [facility] Work Phone: Comment on above: Expected: 08/16/2023, Expires: Start: 08-16-2023 End: 11-15-2023 Iron and Iron binding capacity panel - Serum or Plasma IRON + TIBC Lab Routine Iron deficiency Expected: 08/16/2023, Expires: 11/15/2023 [facility] Work Phone: Comment on above: Expected: 08/16/2023, Expires: 4 Start: 08-16-2023 End: 11-15-2023 LIPID PANEL, NONFASTING LIPID PANEL, NONFASTING Lab Routine Screening, lipid Expected: 08/16/2023, Expires: 11/15/2023 [facility] Work Phone: Comment on above: Expected: 08/16/2023, Expires: 4 Start: 08-16-2023 End: 11-15-2023 Thyrotropin [Units/volume] in Serum or Plasma TSH BLD Lab Routine Screening for thyroid disorder Expected: 08/16/2023, Expires: 11/15/2023 [facility] Work Phone: Comment on above: Expected: 08/16/2023, Expires: Start: 07-07-2023 ANNUAL PCP TEAM CHRONIC DISEASE VISIT ANNUAL PCP TEAM CHRONIC DISEASE VISIT [facility] Start: 07-07-2023 BP CONTROLLED (<130/80) BP CONTROLLED (<130/80) [facility] Start: 07-02-2023 Hemoglobin A1c measurement HbA1C [facility] Start: 07-02-2023 Hemoglobin A1c/Hemoglobin.total in Blood HBA1C [facility] Start: 06-12-2023 [facility] Start: 06-11-2023 BP CONTROLLED (<130/80) BP CONTROLLED (<130/80) [facility] Start: 05-31-2023 Advance Directive Discussion Advance Directive Discussion [facility] Start: 05-31-2023 Behavioral Health Screening Behavioral Health Screening [facility] Start: 05-31-2023 Depression Assessment Depression Assessment [facility] Start: 05-14-2023 End: 08-13-2023 25-hydroxyvitamin D3 [Mass/volume] in Serum or Plasma VITAMIN D 25 HYDROXY Lab Routine Vitamin D deficiency Expected: 05/14/2023, Expires: 08/13/2023 [facility] Work Phone: Comment on above: Expected: 05/14/2023, Expires: 4 Start: 05-12-2023 ANNUAL PCP TEAM CHRONIC DISEASE VISIT ANNUAL PCP TEAM CHRONIC DISEASE VISIT [facility] Start: 05-12-2023 BP CONTROLLED (<130/80) BP CONTROLLED (<130/80) [facility] Start: 05-06-2023 BP CONTROLLED (<130/80) BP CONTROLLED (<130/80) [facility] Start: 04-30-2023 End: 06-30-2023 ALBUMIN/CREAT RATIO RND UR ALBUMIN/CREAT RATIO RND UR Lab Routine Type 2 diabetes mellitus with peripheral neuropathy (HCC) Expected: 04/30/2023, Expires: 06/30/2023 [facility] Work Phone: Comment on above: Expected: 04/30/2023, Expires: 4 Start: 04-30-2023 End: 06-30-2023 CBC W Auto Differential panel - Blood CBC + DIFF Lab Routine Chronic fatigue Encounter for therapeutic drug monitoring Expected: 04/30/2023, Expires: 06/30/2023 [facility] Work Phone: Comment on above: Expected: 04/30/2023, Expires: 4 Start: 04-30-2023 End: 06-30-2023 Comprehensive metabolic 2000 panel - Serum or Plasma COMP METABOLIC PANEL Lab Routine Chronic fatigue Encounter for therapeutic drug monitoring Expected: 04/30/2023, Expires: 06/30/2023 [facility] Work Phone: Comment on above: Expected: 04/30/2023, Expires: 4 Start: 04-30-2023 End: 06-30-2023 Ferritin [Mass/volume] in Serum or Plasma FERRITIN BLD Lab Routine Chronic fatigue Encounter for therapeutic drug monitoring Expected: 04/30/2023, Expires: 06/30/2023 [facility] Work Phone: Comment on above: Expected: 04/30/2023, Expires: 4 Start: 04-30-2023 End: 06-30-2023 Hemoglobin A1c in Blood HGB A1C Lab Routine Chronic fatigue Encounter for therapeutic drug monitoring Type 2 diabetes mellitus with peripheral neuropathy (HCC) Expected: 04/30/2023, Expires: 06/30/2023 [facility] Work Phone: Comment on above: Expected: 04/30/2023, Expires: 4 Start: 04-30-2023 End: 06-30-2023 Iron and Iron binding capacity panel - Serum or Plasma IRON + TIBC Lab Routine Chronic fatigue Encounter for therapeutic drug monitoring Expected: 04/30/2023, Expires: 06/30/2023 [facility] Work Phone: Comment on above: Expected: 04/30/2023, Expires: 4 Start: 04-30-2023 End: 06-30-2023 Lipid 1996 panel - Serum or Plasma LIPID PANEL BASIC Lab Routine Mixed hyperlipidemia Expected: 04/30/2023, Expires: 06/30/2023 [facility] Work Phone: Comment on above: Expected: 04/30/2023, Expires: 4 Start: 04-27-2023 ANNUAL PCP TEAM CHRONIC DISEASE VISIT ANNUAL PCP TEAM CHRONIC DISEASE VISIT [facility] Start: 02-10-2023 ANNUAL PCP TEAM CHRONIC DISEASE VISIT ANNUAL PCP TEAM CHRONIC DISEASE VISIT [facility] Start: 01-29-2023 Covid-19 Vaccine ( season) Covid-19 Vaccine ( season) [facility] Start: 01-29-2023 Influenza vaccination INFLUENZA (#1) [facility] Start: 01-16-2023 Hepatitis B screening URINE ALBUMIN:CREATININE RATIO [facility] Start: 12-08-2022 Hemoglobin A1c/Hemoglobin.total in Blood HBA1C [facility] Start: 10-25-2022 Hemoglobin A1c/Hemoglobin.total in Blood HBA1C [facility] Start: 10-03-2022 ANNUAL PCP TEAM CHRONIC DISEASE VISIT ANNUAL PCP TEAM CHRONIC DISEASE VISIT [facility] Start: 09-09-2022 End: 07-11-2023 XR ABDOMEN 1V SUPINE XR ABDOMEN 1V SUPINE Radiology Routine Kidney stone Expected: 09/09/2022, Expires: 07/11/2023 [facility] Work Phone: Comment on above: Expected: 09/09/2022, Expires: 4 Start: 08-25-2022 ANNUAL PCP TEAM CHRONIC DISEASE VISIT ANNUAL PCP TEAM CHRONIC DISEASE VISIT [facility] Start: 08-21-2022 Hepatitis B screening URINE ALBUMIN:CREATININE RATIO [facility] Start: 08-15-2022 End: 10-15-2022 25-hydroxyvitamin D3 [Mass/volume] in Serum or Plasma VITAMIN D 25 HYDROXY Lab Routine Vitamin D deficiency Expected: 08/15/2022, Expires: 10/15/2022 [facility] Work Phone: Comment on above: Expected: 08/15/2022, Expires: 3 Start: 08-15-2022 End: 10-15-2022 CBC panel - Blood by Automated count CBC Lab Routine Irregular heart rhythm Dietary iron deficiency without anemia Expected: 08/15/2022, Expires: 10/15/2022 [facility] Work Phone: Comment on above: Expected: 08/15/2022, Expires: 3 Start: 08-15-2022 End: 10-15-2022 Cobalamin (Vitamin B12) [Mass/volume] in Serum or Plasma VITAMIN B12 BLOOD Lab Routine B12 deficiency Other fatigue Expected: 08/15/2022, Expires: 10/15/2022 [facility] Work Phone: Comment on above: Expected: 08/15/2022, Expires: 3 Start: 08-15-2022 End: 10-15-2022 Comprehensive metabolic 2000 panel - Serum or Plasma COMP METABOLIC PANEL Lab Routine Irregular heart rhythm Expected: 08/15/2022, Expires: 10/15/2022 [facility] Work Phone: Comment on above: Expected: 08/15/2022, Expires: 3 Start: 08-15-2022 End: 10-15-2022 Ferritin [Mass/volume] in Serum or Plasma FERRITIN BLD Lab Routine Elevated ferritin Other fatigue Expected: 08/15/2022, Expires: 10/15/2022 [facility] Work Phone: Comment on above: Expected: 08/15/2022, Expires: 3 Start: 08-15-2022 End: 10-15-2022 Folate [Mass/volume] in Serum or Plasma FOLATE SERUM Lab Routine Other fatigue Expected: 08/15/2022, Expires: 10/15/2022 [facility] Work Phone: Comment on above: Expected: 08/15/2022, Expires: Start: 08-15-2022 End: 10-15-2022 Hemoglobin A1c in Blood HGB A1C Lab Routine Irregular heart rhythm Expected: 08/15/2022, Expires: 10/15/2022 [facility] Work Phone: Comment on above: Expected: 08/15/2022, Expires: Start: 08-15-2022 End: 10-15-2022 Iron and Iron binding capacity panel - Serum or Plasma IRON + TIBC Lab Routine Other fatigue Expected: 08/15/2022, Expires: 10/15/2022 [facility] Work Phone: Comment on above: Expected: 08/15/2022, Expires: Start: 08-15-2022 End: 10-15-2022 Magnesium [Mass/volume] in Serum or Plasma MAGNESIUM BLD Lab Routine Irregular heart rhythm Expected: 08/15/2022, Expires: 10/15/2022 [facility] Work Phone: Comment on above: Expected: 08/15/2022, Expires: 3 Start: 08-15-2022 End: 10-15-2022 Methylmalonate [Moles/volume] in Serum or Plasma METHYLMALONIC ACID Lab Routine B12 deficiency Expected: 08/15/2022, Expires: 10/15/2022 [facility] Work Phone: Comment on above: Expected: 08/15/2022, Expires: 3 Start: 08-15-2022 End: 10-15-2022 Thyrotropin [Units/volume] in Serum or Plasma TSH BLD Lab Routine Irregular heart rhythm Expected: 08/15/2022, Expires: 10/15/2022 [facility] Work Phone: Comment on above: Expected: 08/15/2022, Expires: 3 Start: 08-15-2022 End: 10-15-2022 Thyroxine (T4) free [Mass/volume] in Serum or Plasma T4 FREE/FREE THYROX Lab Routine Irregular heart rhythm Expected: 08/15/2022, Expires: 10/15/2022 [facility] Work Phone: Comment on above: Expected: 08/15/2022, Expires: 3 Start: 08-15-2022 End: 10-15-2022 Triiodothyronine (T3) Free [Mass/volume] in Serum or Plasma T3 FREE BLD Lab Routine Irregular heart rhythm Expected: 08/15/2022, Expires: 10/15/2022 [facility] Work Phone: Comment on above: Expected: 08/15/2022, Expires: 3 Start: 07-19-2022 Hemoglobin A1c/Hemoglobin.total in Blood HBA1C [facility] Start: 07-03-2022 COVID-19 VACCINE (5 - Pfizer series) COVID-19 VACCINE (5 - Pfizer series) [facility] Start: 06-18-2022 End: 08-18-2022 Bacteria identified in Urine by Culture [facility] Work Phone: Comment on above: Expected: 06/18/2022, Expires: 3 Start: 05-31-2022 ADVANCE DIRECTIVE DISCUSSION ADVANCE DIRECTIVE DISCUSSION [facility] Start: 05-31-2022 DEPRESSION ASSESSMENT DEPRESSION ASSESSMENT [facility] Start: 04-27-2022 End: 06-27-2022 Cobalamin (Vitamin B12) [Mass/volume] in Serum or Plasma [facility] Work Phone: Comment on above: Expected: 04/27/2022, Expires: 3 Start: 04-27-2022 End: 06-27-2022 Comprehensive metabolic 2000 panel - Serum or Plasma [facility] Work Phone: Comment on above: Expected: 04/27/2022, Expires: 3 Start: 04-27-2022 End: 06-27-2022 Ferritin [Mass/volume] in Serum or Plasma [facility] Work Phone: Comment on above: Expected: 04/27/2022, Expires: 3 Start: 04-27-2022 End: 06-27-2022 Folate [Mass/volume] in Serum or Plasma [facility] Work Phone: Comment on above: Expected: 04/27/2022, Expires: 3 Start: 04-27-2022 End: 06-27-2022 Hemoglobin A1c in Blood [facility] Work Phone: Comment on above: Expected: 04/27/2022, Expires: 3 Start: 04-27-2022 End: 06-27-2022 Iron and Iron binding capacity panel - Serum or Plasma [facility] Work Phone: Comment on above: Expected: 04/27/2022, Expires: 3 Start: 03-30-2022 End: 05-30-2022 CBC W Auto Differential panel - Blood CBC + DIFF Lab Routine Iron deficiency Expected: 03/30/2022 (Approximate), Expires: 05/30/2022 [facility] Work Phone: Comment on above: Expected: 03/30/2022 (Approximate), Expi res: 05/30/2022 Start: 03-30-2022 End: 05-30-2022 Ferritin [Mass/volume] in Serum or Plasma FERRITIN BLD Lab Routine Iron deficiency Expected: 03/30/2022 (Approximate), Expires: 05/30/2022 [facility] Work Phone: Comment on above: Expected: 03/30/2022 (Approximate), Expi res: 05/30/2022 Start: 03-30-2022 End: 05-30-2022 Iron and Iron binding capacity panel - Serum or Plasma IRON + TIBC Lab Routine Iron deficiency Expected: 03/30/2022 (Approximate), Expires: 05/30/2022 [facility] Work Phone: Comment on above: Expected: 03/30/2022 (Approximate), Expi res: 05/30/2022 Start: 02-21-2022 Hemoglobin A1c/Hemoglobin.total in Blood HBA1C [facility] Start: 02-21-2022 Simple repair scalp/neck/ax/genit/trunk 2.5cm/< RPR S/N/AX/GEN/TRNK 2.5CM/< [facility] [place] [place] Work Phone: Start: 02-10-2022 Adult depression screening assessment DEPRESSION SCREENING [facility] Start: 02-10-2022 ANNUAL PCP TEAM CHRONIC DISEASE VISIT ANNUAL PCP TEAM CHRONIC DISEASE VISIT [facility] Start: 01-29-2022 Influenza vaccination INFLUENZA (#1) [facility] Start: 01-19-2022 End: 03-21-2022 Thyrotropin [Units/volume] in Serum or Plasma TSH BLD Lab Routine Fatigue, unspecified type Expected: 01/19/2022, Expires: 03/21/2022 [facility] Work Phone: Comment on above: Expected: 01/19/2022, Expires: 2 Start: 01-05-2022 End: 03-07-2022 Ferritin [Mass/volume] in Serum or Plasma FERRITIN BLD Lab Routine Elevated ferritin Expected: 01/05/2022, Expires: 03/07/2022 [facility] Work Phone: Comment on above: Expected: 01/05/2022, Expires: 2 Start: 01-05-2022 End: 03-07-2022 Iron and Iron binding capacity panel - Serum or Plasma IRON + TIBC Lab Routine Elevated ferritin Expected: 01/05/2022, Expires: 03/07/2022 [facility] Work Phone: Comment on above: Expected: 01/05/2022, Expires: 2 Start: 10-28-2021 End: 10-06-2022 CBC W Auto Differential panel - Blood CBC + DIFF Lab Routine Fatigue, unspecified type Elevated ferritin Expected: 10/28/2021 (Approximate), Expires: 10/06/2022 [facility] Work Phone: Comment on above: Expected: 10/28/2021 (Approximate), Expi res: 10/06/2022 Start: 10-28-2021 End: 10-06-2022 Comprehensive metabolic 2000 panel - Serum or Plasma COMP METABOLIC PANEL Lab Routine Fatigue, unspecified type Elevated ferritin Expected: 10/28/2021 (Approximate), Expires: 10/06/2022 [facility] Work Phone: Comment on above: Expected: 10/28/2021 (Approximate), Expi res: 10/06/2022 Start: 10-28-2021 End: 10-06-2022 Echocardiography ECHO Cardiology Routine Shortness of breath on exertion Irregular heart beat Fatigue, unspecified type Expected: 10/28/2021 (Approximate), Expires: 10/06/2022 [facility] Work Phone: Comment on above: Expected: 10/28/2021 (Approximate), Expi res: 10/06/2022 Start: 10-28-2021 End: 10-06-2022 FERRITIN BLD FERRITIN BLD Lab Routine Fatigue, unspecified type Elevated ferritin Expected: 10/28/2021 (Approximate), Expires: 10/06/2022 [facility] Work Phone: Comment on above: Expected: 10/28/2021 (Approximate), Expi res: 10/06/2022 Start: 10-10-2021 Hepatitis B surface antibody level LDL CHOLESTEROL [facility] Start: 08-12-2021 COVID-19 VACCINE (4 - Booster for Pfizer series) COVID-19 VACCINE (4 - Booster for Pfizer series) [facility] Start: 07-29-2021 Glaucoma screening Dilated Retinal Exam [facility] Start: 07-29-2021 Hepatitis C antibody, confirmatory test DILATED RETINAL EXAM [facility] Start: 06-09-2021 COVID-19 VACCINE (4 - Booster for Pfizer series) COVID-19 VACCINE (4 - Booster for Pfizer series) [facility] Start: 05-31-2021 ADVANCE DIRECTIVE DISCUSSION ADVANCE DIRECTIVE DISCUSSION [facility] Start: 05-31-2021 DEPRESSION ASSESSMENT DEPRESSION ASSESSMENT [facility] Start: 2017 RSV Immunization for Adults (1 - 1-dose 75+ series) RSV Immunization for Adults (1 - 1-dose 75+ series) [facility] Start: 2017 RSV Vaccine (1 - 1-dose 75+ series) RSV Vaccine (1 - 1-dose 75+ series) [facility] Start: 10-10-2016 DTaP/Tdap/Td Vaccines (1 - Tdap) DTaP/Tdap/Td Vaccines (1 - Tdap) [facility] Start: 10-10-2016 Urine microalbumin profile [facility] Start: 09-23-2016 3 comp foot exam completed DIABETIC FOOT EXAM [facility] Start: 09-23-2016 Diabetic foot examination Diabetic Foot Exam [facility] Start: 11-25-2012 SHINGRIX VACCINE (2 of 3) SHINGRIX VACCINE (2 of 3) [facility] Start: 11-25-2012 Zoster Vaccines (2 of 3) Zoster Vaccines (2 of 3) [facility] Start: 2002 Hepatitis B Vaccine (1 of 3 - Risk 3-dose series) Hepatitis B Vaccine (1 of 3 - Risk 3-dose series) [facility] Start: 2002 RSV Vaccine (1 - 1-dose 60+ series) RSV Vaccine (1 - 1-dose 60+ series) [facility] Start: 02-08-1960 BP CONTROLLED (<130/80) BP CONTROLLED (<130/80) [facility] in Start: 02-08-1960 Depression Screening Depression Screening [facility] Start: 1954 Depression Screening Depression Screening [facility] Start: 02-08-1946 PNEUMOCOCCAL: 65+ (1 - PCV) PNEUMOCOCCAL: 65+ (1 - PCV) [facility] Bacteria identified in Urine by Culture URINE CULTURE Microbiology Routine Urinary frequency Ordered: 12/17/2021 [facility] Work Phone: Comment on above: Ordered: 12/17/2021 Bacteria identified in Urine by Culture URINE CULTURE Microbiology Routine UTI symptoms Ordered: 01/10/2024 [facility] Comment on above: Ordered: 01/10/2024 Bilirubin measuremen t, urine [facility] Work Phone: End: 08-31-2025 CT Head WO contrast CT BRAIN WO IVCON Radiology STAT Intracranial hemorrhage (HCC) 1 Occurrences starting 08/01/2024 until 08/31/2025 [facility] Work Phone: Comment on above: 1 Occurrences starting 08/01/2024 until 08/31/2025 Dstrj neurolytic age nt other peripheral nerve NRV DESTR RFA, CHEM OTHER Procedures Routine Chronic left SI joint pain Ordered: 03/11/2022 [facility] Work Phone: Comment on above: Ordered: 03/11/2022 End: 10-03-2022 ECG COMPLETE ECG COMPLETE ECG Routine Irregular heart beat 1 Occurrences starting 10/03/2021 until 10/03/2022 [facility] Work Phone: Comment on above: 1 Occurrences starting 10/03/2021 until 10/03/2022 End: 11-02-2022 ECG COMPLETE ECG COMPLETE ECG Routine Dyspnea on exertion 1 Occurrences starting 11/02/2021 until 11/02/2022 [facility] Work Phone: Comment on above: 1 Occurrences starting 11/02/2021 until 11/02/2022 End: 04-27-2023 ECG COMPLETE ECG COMPLETE ECG Routine Irregular heart rhythm 1 Occurrences starting 04/27/2022 until 04/27/2023 [facility] Work Phone: Comment on above: 1 Occurrences starting 04/27/2022 until 04/27/2023 End: 08-16-2023 ECG COMPLETE ECG COMPLETE ECG Routine Irregular heart rhythm FIELD (dyspnea on exertion) 1 Occurrences starting 08/15/2022 until 08/16/2023 [facility] Work Phone: Comment on above: 1 Occurrences starting 08/15/2022 until 08/16/2023 ECG COMPLETE ECG COMPLETE ECG 01/11/2023 8:40 AM EDT [facility] End: 01-12-2024 Echocardiography ECHO Cardiology Routine Irregular heart rhythm FIELD (dyspnea on exertion) Premature atrial complexes PAC (premature atrial contraction) Mixed hyperlipidemia Carotid artery stenosis without cerebral infarction, bilateral Type 2 diabetes mellitus with peripheral neuropathy (HCC) Atypical chest pain 1 Occurrences starting 01/11/2023 until 01/12/2024 [facility] Work Phone: Comment on above: 1 Occurrences starting 01/11/2023 until 01/12/2024 Glucose [Mass/volume ] in Serum or Plasma GLUCOSE, BLOOD (POC) Lab Routine Glucosuria Ordered: 12/17/2021 [facility] Work Phone: Comment on above: Ordered: 12/17/2021 Hemoglobin [Presence ] in Urine [facility] Work Phone: End: 05-27-2023 LUNG VOLUMES LUNG VOLUMES PFT Routine FIELD (dyspnea on exertion) Chronic cough 1 Occurrences starting 04/27/2022 until 05/27/2023 [facility] Work Phone: Comment on above: 1 Occurrences starting 04/27/2022 until 05/27/2023 LUNG VOLUMES LUNG VOLUMES PFT Routine FIELD (dyspnea on exertion) Chronic cough 04/28/2022 9:46 AM EST [facility] Work Phone: End: 08-05-2024 ARTIS DIAGNOSTIC RIGHT ARTIS DIAGNOSTIC RIGHT Radiology Routine Abnormal mammogram 1 Occurrences starting 07/07/2023 until 08/05/2024 [facility] Work Phone: Comment on above: 1 Occurrences starting 07/07/2023 until 08/05/2024 End: 06-12-2024 ARTIS SCREENING ARTIS SCREENING Radiology Routine Breast cancer screening by mammogram 1 Occurrences starting 05/14/2023 until 06/12/2024 [facility] Work Phone: Comment on above: 1 Occurrences starting 05/14/2023 until 06/12/2024 Measurement of keton es in urine using dipstick [facility] Work Phone: Microorganism identi fied in Unspecified specimen by Culture FUNGAL CULT + SMEAR Microbiology Routine Lichen sclerosus et atrophicus Pruritus 03/04/2022 3:36 PM EDT [facility] Work Phone: Microscopic urinalysis [facility] Work Phone: Njx anes&/strd w/img tfrml edrl lmbr/sac 1 lvl INJ TRANSFORAMINAL EPID ANES/STER LS SINGL Procedures Routine Spinal stenosis of lumbar region, unspecified whether neurogenic claudication present Radiculopathy, lumbar region 1 Occurrences starting 09/14/2022 [facility] Work Phone: Comment on above: 1 Occurrences starting 09/14/2022 Njx anes&/strd w/img tfrml edrl lmbr/sac 1 lvl INJ TRANSFORAMINAL EPID ANES/STER LS SINGL Procedures Routine Lumbar spondylosis Radiculopathy, lumbar region Ordered: 03/10/2024 [facility] Work Phone: Comment on above: Ordered: 03/10/2024 End: 02-10-2024 NM CARDIAC PERF STRESS/PHARM NM CARDIAC PERF STRESS/PHARM Radiology Routine Irregular heart rhythm FIELD (dyspnea on exertion) Premature atrial complexes PAC (premature atrial contraction) Mixed hyperlipidemia Carotid artery stenosis without cerebral infarction, bilateral Type 2 diabetes mellitus with peripheral neuropathy (HCC) Atypical chest pain 1 Occurrences starting 01/11/2023 until 02/10/2024 [facility] Work Phone: Comment on above: 1 Occurrences starting 01/11/2023 until 02/10/2024 OUTSIDE VENDOR CARDI AC OUTPATIENT EXTENDED RHYTHM RECORDING (WITHOUT TELEMETRY) OUTSIDE VENDOR CARDIAC OUTPATIENT EXTENDED RHYTHM RECORDING (WITHOUT TELEMETRY) Holter Routine Dyspnea on exertion Ordered: 11/03/2021 [facility] Work Phone: Comment on above: Ordered: 11/03/2021 Patient Education [facility] Work Phone: Patient referral [facility] Work Phone: pH of Urine [facility] Work Phone: PT PLAN OF CARE CERTIFICATION PT PLAN OF CARE CERTIFICATION Procedures Routine Spinal stenosis of lumbar region, unspecified whether neurogenic claudication present Lumbar spondylosis Radiculopathy, lumbar region Spondylolisthesis of lumbar region Ordered: 08/19/2022 [facility] Work Phone: Comment on above: Ordered: 08/19/2022 PT PLAN OF CARE CERTIFICATION PT PLAN OF CARE CERTIFICATION Procedures Routine Spinal stenosis of lumbar region, unspecified whether neurogenic claudication present Lumbar spondylosis Spondylolisthesis of lumbar region Radiculopathy, lumbar region Ordered: 11/06/2022 [facility] Comment on above: Ordered: 11/06/2022 Specific gravity of Urine [facility] Work Phone: End: 05-27-2023 SPIROMETRY WITH DILATOR IF OBSTRUCTED SPIROMETRY WITH DILATOR IF OBSTRUCTED PFT Routine FIELD (dyspnea on exertion) Chronic cough 1 Occurrences starting 04/27/2022 until 05/27/2023 [facility] Work Phone: Comment on above: 1 Occurrences starting 04/27/2022 until 05/27/2023 SPIROMETRY WITH DILA TOR IF OBSTRUCTED SPIROMETRY WITH DILATOR IF OBSTRUCTED PFT Routine FIELD (dyspnea on exertion) Chronic cough 04/28/2022 9:46 AM EST [facility] Work Phone: UA DIP B/O UA DIP B/O Lab R outine UTI symptoms Ordered: 01/10/2024 [facility] Work Phone: Comment on above: Ordered: 01/10/2024 Urinalysis, blood, qualitative [facility] Work Phone: Urine dipstick for glucose [facility] Work Phone: Urine dipstick for leukocyte esterase [facility] Work Phone: Urine dipstick for nitrite [facility] Work Phone: Urine dipstick for protein [facility] Work Phone: Urine examination [facility] Work Phone: Urine microscopy: epithelial cells [facility] Work Phone: Urine Microscopy: wh ite cells [facility] Work Phone: Urobilinogen [Presen ce] in Urine [facility] Work Phone: End: 08-05-2024 US BREAST LTD RIGHT US BREAST LTD RIGHT Radiology Routine Abnormal mammogram 1 Occurrences starting 07/07/2023 until 08/05/2024 [facility] Work Phone: Comment on above: 1 Occurrences starting 07/07/2023 until 08/05/2024 End: 08-12-2024 US Carotid arteries - bilateral US CAROTID ARTERIES [facility] Vascular Lab Routine Carotid stenosis, right 1 Occurrences starting 08/13/2023 until 08/12/2024 [facility] Work Phone: Comment on above: 1 Occurrences starting 08/13/2023 until 08/12/2024 End: 08-16-2023 US CAROTID ARTERIES [facility] US CAROTID ARTERIES [facility] Vascular Lab Routine Bilateral carotid artery stenosis 1 Occurrences starting 08/15/2022 until 08/16/2023 [facility] Work Phone: Comment on above: 1 Occurrences starting 08/15/2022 until 08/16/2023 End: 06-20-2023 XR DIGIT GENERAL 3V FRONTAL/LAT/OBL RIGHT XR DIGIT GENERAL 3V FRONTAL/LAT/OBL RIGHT Radiology Routine Finger injury, right, initial encounter 1 Occurrences starting 05/21/2022 until 06/20/2023 [facility] Work Phone: Comment on above: 1 Occurrences starting 05/21/2022 until 06/20/2023 End: 01-22-2025 XR Knee - right AP and Lateral XR KNEE LIMITED 2V AP/LAT RIGHT Radiology Routine Acute pain of right knee 1 Occurrences starting 12/24/2023 until 01/22/2025 [facility] Work Phone: Comment on above: 1 Occurrences starting 12/24/2023 until 01/22/2025 XR Knee - right AP a nd Lateral XR KNEE LIMITED 2V AP/LAT RIGHT Radiology Routine Acute pain of right knee 12/27/2023 1:54 PM EDT [facility] Work Phone: [facility] Immunization Date Immunization Notes Care Provider [facility] 03-29-2024 influenza, seasonal, injectable Moraima Montelongo MD Work Phone: [facility] 03-29-2024 influenza virus vacc ine, unspecified formulation Radha Walters MD Work Phone: [facility] 05-14-2023 COVID-19 vaccine, ag e 12+ yr, season (PFIZER-BIONTECH) Guillaume Dominguez MD Work Phone: [facility] 02-02-2023 influenza (HD-IIV4) vaccine, age 65+ yr, high dose, quadrivalent, PF (FLUZONE HIGH-DOSE) Josefa Caputo APRN.YARDING SUPERVISOR Work Phone: [facility] Work Phone: 02-02-2023 influenza virus vacc ine, unspecified formulation Guillaume Dominguez MD Work Phone: [facility] 03-02-2022 COVID-19 booster vaccine, age 12+ yr, bivalent (PFIZER-BIONTECH) Mi Nurse Work Phone: [facility] Work Phone: 02-10-2022 influenza, high-dose , quadrivalent vaccine (FLUZONE HIGH DOSE QUADRIVALENT) Ct Nurse Work Phone: [facility] Work Phone: 04-14-2021 COVID-19 vaccine, ag e 12+ yr (PFIZER-BIONTECH - PURPLE TOP) Curtis Nassar MD Work Phone: [facility] Work Phone: 03-03-2021 influenza, high-dose , quadrivalent vaccine (FLUZONE HIGH DOSE QUADRIVALENT) Curtis Nassar MD Work Phone: [facility] Work Phone: 08-01-2020 COVID-19 vaccine, ag e 12+ yr (PFIZER-BIONTECH - PURPLE TOP) Curtis Nassar MD Work Phone: [facility] Work Phone: 07-11-2020 COVID-19 vaccine, ag e 12+ yr (PFIZER-BIONTECH - PURPLE TOP) Curtis Nassar MD Work Phone: [facility] Work Phone: 03-07-2020 influenza, high-dose , quadrivalent vaccine (FLUZONE HIGH DOSE QUADRIVALENT) Curtis Nassar MD Work Phone: [facility] Work Phone: 02-25-2019 influenza, high dose seasonal, preservative-free Curtis Nassar MD Work Phone: [facility] 03-01-2018 influenza, high dose seasonal, preservative-free Curtis Nassar MD Work Phone: [facility] Work Phone: 03-03-2017 influenza, high dose seasonal, preservative-free Curtis Nassar MD Work Phone: [facility] 10-09-2016 tetanus and diphther ia toxoids, adsorbed, preservative free, for adult use (5 Lf of tetanus toxoid and 2 Lf of diphtheria toxoid) Curtis Nassar MD Work Phone: [facility] Work Phone: 09-01-2016 pneumococcal conjuga te vaccine, 13 valent Curtis Nassar MD Work Phone: [facility] 04-08-2016 influenza, high dose seasonal, preservative-free Curtis Nassar MD Work Phone: [facility] Work Phone: 04-09-2015 influenza, high dose seasonal, preservative-free Curtis Nassar MD Work Phone: [facility] 03-16-2013 Influenza virus vaccine [facility] 01-25-2013 pneumococcal polysaccharide vaccine, 23 valent Curtis Nassar MD Work Phone: [facility] 09-30-2012 zoster vaccine, live Curtis chapman MD Work Phone: [facility] Work Phone: 06-04-2005 influenza virus vacc ine, unspecified formulation Curtis Nassar MD Work Phone: [facility] Work Phone: Payers Date Payer Category Payer Self-pay [id number] 2022 [facility] [id number] 2017 Medicare [id number] 2017 Medicare HUMANA MEDICARE HUMANA GOLD PLUS [id number] 2017-Present [phone] [address] [address] [place] [address] HMO [id number] 2017 Medicare (Managed Care) HUMANA G OLD PLUS [id number] 2017 Private Health Insurance [id number] Unknown [id number] Unknown [id number] Unknown [id number] Unknown [id number] Unknown [id number] Unknown [id number] Unknown [id number] Unknown [id number] Unknown [id number] Unknown [id number] Unknown [id number] .[id number] Unknown [id number] .[id number] Unknown [id number] .[id number] Unknown [id number] .[id number] Unknown [id number] Unknown [id number] Social History Date Type Detail Facility Start: 11-25-2010 End: 05-05-2024 Tobacco smoking status NHIS Never smoked tobacco [facility] Start: 08-22-2021 End: 08-03-2024 Alcohol intake Current non-drinker of alcohol (finding) [facility] Start: 1940 Sex Assigned At Not on file [facility] Start: 08-11-2021 End: 04-07-2022 Exposure to SARS-CoV-2 (event) Not sure [facility] Work Phone: Start: 09-28-2021 End: 10-08-2021 Exposure to SARS-CoV-2 (event) Unable to assess [facility] Work Phone: Start: 11-25-2010 Tobacco use and exposure Smokeless tobacco non-user [facility] Work Phone: Start: 02-16-2022 End: 06-12-2023 Tobacco smoking status NHIS Unknown if ever smoked [facility] Start: 08-27-2020 None [facility] Start: 08-27-2020 Spouse/ Signif icant Other [facility] Start: 02-16-2022 Non-smoker [facility] Start: 1940 Sex Assigned At Female C [facility] Start: 10-05-2022 End: 11-10-2022 History of Social function [facility] Work Phone: Start: 10-05-2022 End: 11-10-2022 Tobacco use panel [facility] Work Phone: Adult Depression Screening Assessment 6 [facility] Work Phone: (I/We) worried wheth er (my/our) food would run out before (I/we) got money to buy more. Never true [facility] In the past 12 month s, was there a time when you were not able to pay the mortgage or rent on time? No [facility] Start: 07-31-2024 End: 09-01-2024 Sex Female (finding) [facility] Medical Equipment Procedure Code Equipment Code Equipment Origin al Text Equipment Identifier Dates ORIF, hip, using Gamma nail ([id number]) Orthopaedic bone screw, non-bioabsorbable, sterile [id number] FDA Start: 01-11-2024 ORIF, hip, using Gamma nail ([id number]) Orthopaedic bone screw, non-bioabsorbable, sterile [id number] FDA Start: 01-11-2024 ORIF, hip, using Gamma nail ([id number]) Femur nail, sterile [id number] FDA Start: 01-11-2024 [id number] Start: 11-09-2016 Comment on above: ONE TOUCH ULTRA [address] STRIPS TESTING 2 TIMES DAILY INSULIN NO DX E11.65 [id number], [id number], [id number], [id number], [id number], [id number] Start: 10-22-2020 End: 05-07-2024 Comment on above: Check sugars 3 times daily use to check sugars twice a day 1 Strip three times daily. Use as instructed DX: E11.42 Test blood sugar(s) 3 times daily. Dx: Other DM Code E11.42 Insulin: No ONE TOUCH ULTRA 2 TEST STRIPS TESTING 2 TIMES DAILY INSULIN NO DX E11.65 [id number] Start: 11-09-2016 End: 05-07-[address] us Bovine Collagen Matrix 3x3in Soft Tissue Patch - [id number] Start: 05-06-[address] us Bovine Collagen Matrix 3x3in Soft Tissue Patch - [id number] Start: 05-06-2024 Pangea Distal Fe mur Plate Left 280mm [id number] Start: 05-07-2024 Level One Neuro Screw Onedrive Drill Free 1.5 X 4 Mm Ti-6al-4v [id number] Ea - [id number] Start: 05-06-2024 Comment on above: Description: Entered from worksheet. Screws are needed to attach the plates to the skull. L1 Neuro Shelby Hl Cov Ultraone Contour W/Tab Scrw 6 Hl 18mm D T0.35mm Ti - [id number] Start: 05-06-2024 Lvl 1 Neuro Plt Ultraone Str W/Tab Scrw 4 Hole 22mm T0.35mm Ti-6al-4v 1ea - [id number] Start: 05-06-2024 Lvl 1 Neuro Plt Ultraone Str W/Tab Scrw 2 Hole 17mm T0.35mm Ti-6al-4v 1ea - [id number] Start: 05-06-2024 Screw Bone 3.5mm 36mm Axsos 3 Titanium Cortex Self Tap Lock Nonsterile - [id number] Start: 05-07-2024 Pangea Locking S crew 5mm X 65mm [id number] Start: 05-07-2024 Locking Screw, 5 .0mm / T20 / L75mm [id number] Start: 05-07-2024 Locking Screw, 5 .0mm / T20 / L70mm [id number] Start: 05-07-2024 Screw Bone 4.5mm 42mm Axsos 3 Titanium Cortex Self Tap Lock Nonsterile - [id number] Start: 05-07-2024 Locking Screw, 5 .0mm / T20 / L60mm [id number] Start: 05-07-2024 Locking Screw, 5 .0mm / T20 / L38mm [id number] Start: 05-07-2024 Screw Bone 3.5mm 32mm Titanium Cortical Lock Nonsterile Axsos 3 - [id number] Start: 05-07-2024 Screw Bone 3.5mm 34mm Titanium Cortical Nonsterile Axsos 3 - [id number] Start: 05-07-2024 Agent Avitene Collagen Hemostatic Microfibrillar Flour Sterile Latex Free 1 - [id number] Start: 05-06-2024 Functional Status Date Assessment Result Facility 03-25-2019 Are you deaf, or do you have serious difficulty hearing No 03/25/2019 11:46 AM Lety Galloway RN [facility] 03-25-2019 Are you blind, or do you have serious difficulty seeing, even when wearing glasses No 03/25/2019 11:46 AM Lety Galloway, ISMAEL [facility] 03-25-2019 Do you have serious difficulty walking or climbing stairs No 03/25/2019 11:46 AM Lety Galloway RN [facility] 03-25-2019 Do you have difficul ty dressing or bathing No 03/25/2019 11:46 AM Lety Galloway, ISMAEL [facility] 03-25-2019 Because of a physica l, mental, or emotional condition, do you have difficulty doing errands alone such as visiting a physician's office or shopping No 03/25/2019 11:46 AM Lety Galloway RN [facility] Mental Status Date Assessment Result Facility 06-12-2023 Cognitive function Level Of Cons ciousness Awake;Alert;Appropriate;Fol lows Commands [facility] Work Phone: 02-16-2022 Cognitive function Voice/Name [facility] Work Phone: 03-25-2019 Because of a physica l, mental, or emotional condition, do you have serious difficulty concentrating, remembering, or making decisions No 03/25/2019 11:46 AM Lety Galloway RN No [facility] Clinical Notes 01-05-2019 to 12-25-2024 Telephone [...] lesions. Bad situation., Daughter needs an alternative [phone] [facility] 12-25-2024 Miscellaneous Notes Diflucan not worth it, patient already taking. Aquafor--was told to never to use an ointment, so did not use it. Using cornstarch to keep dry as best as possible, Patient is bedridden and cannot come in for an appointment. She has open lesions. Bad situation., Daughter needs an alternative [phone] Message left for patient's daughter, Hardy, asking how patient is doing. documented in this encounter [facility] 12-25-2024 Telephone encounter Note Message left for patient's daughter, Hardy, asking how patient is doing. [facility] 09-18-2024 History of Present illness Narrative [...] 1:13 PM documented in this encounter [facility] 08-17-2024 History of Present illness Narrative POPULATION HEALTH NAVIGATION OUTREACH Action/FYI Patient to schedule A1C, AWV, KED, DIABETIC EYE EXAM Reason for Outreach Care Gap/HCC or Scheduling Wellness Visits Care Gaps due: Medicare Annual Wellness Visit Diabetic Eye Exam HBA1C KED Patient Contacted: Unable or unnecessary to reach patient: AppHarbor message sent HCC related Navigation Signature: Natalya Byrd August 17, 2024 1:28 PM documented in this encounter [facility] 08-16-2024 Telephone encounter Note Spoke with patient's daughter Lashaun and notified her of the Mounjaro dose change. Attempted to fax updated RX to prison at [phone] but it did not go through. Will try again later. Geno Moise RN [facility] 08-16-2024 Miscellaneous Notes Spoke with patient's daughter Lashaun and notified her of the Mounjaro dose change. Attempted to fax updated RX to prison at [phone] but it did not go through. Will [...] at this time. 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 She reports the nurse has reported to her that patients blood sugars have been low- typically in 70-90 range, highest one in the past month and 1/2 was 140. Patient is not eating as much as she was before- food is more regulated than it was in assisted living. Patient is also losing more weight than they had wanted. Nurse at [facility] is requesting review- possibly lower dose of mounjaro. Lashaun reports she picks up this medication and takes it to the prison. She uses [email or web address]- phone number [phone]. This nurse requested a log of recent blood sugars to be faxed to us from prison. [facility] requests a new order be faxed to [facility]- fax number to be provided via Listia message. Patients daughter Lashaun calling in asking for a call back to discuss lowering the dosage of patients medication. Her food has decreased and her sugar reading are lower and asking to lower tirzepatide (MOUNJARO) 5 mg/0.5 mL pen injector Please call Lashaun back [phone] Thank you Velvet SHORT August 09, 2024 11:59 AM documented in this encounter [facility] 08-16-2024 Telephone encounter Note Please call to let the Lashaun know that it is reasonable to reduce Mounjaro for now. I will send a prescription to her pharmacy for 2.5mg weekly. Once the appetite improves, she will likely need to resume 5mg dose. Thank you- Sasha Caldwell APRN.YARDING SUPERVISOR [facility] 08-15-2024 Telephone encounter Note Images from the original note were not included. [facility] 08-10-2024 Telephone encounter Note This nurse reached out to Lashaun- She reports patient had a fall and hit her head- had a craniotomy- broke her femur- not walking at this time. Patient is now in [facility] for detention. She reports the nurse has reported to her that patients blood sugars have been low- typically in 70-90 range, highest one in the past month and 1/2 was 140. Patient is not eating as much as she was before- food is more regulated than it was in assisted living. Patient is also losing more weight than they had wanted. Nurse at [facility] is requesting review- possibly lower dose of mounjaro. Lashaun reports she picks up this medication and takes it to the prison. She uses [email or web address] pharmacy- phone number [phone]. This nurse requested a log of recent blood sugars to be faxed to us from prison. [facility] requests a new order be faxed to [facility]- fax number to be provided via Listia message. T [facility] 08-09-2024 Telephone encounter Note Patients daughter Lashaun calling in asking for a call back to discuss lowering the dosage of patients medication. Her food has decreased and her sugar reading are lower and asking to lower tirzepatide (MOUNJARO) 5 mg/0.5 mL pen injector Please call Lashaun back [phone] Thank you Velvet SHORT August 09, 2024 11:59 AM [facility] 08-03-2024 History of Present illness Narrative NEUROSURGERY POST-OP NOTE Tika Jones MD Date of visit: August 03, 2024 Patient Name: Ms.Jacqueline Kayleigh Davenport Date of : 1940 Current Age: [age] year old Sex: female MRN/E# [id number] Last Office Visit: 08/01/2024 CLINICAL SUMMARY: KPS: [...] II, previous PE, on Eliquis presented to [facility] on 05/06/24 as a trauma from [facility] with a right acute subdural hematoma with mass effect following a fall at an assisted living facility. CT scan of the brain completed at [facility] showed worsening SDH with 7mm right to [...] her own. She is currently residing at [facility]. She presents today with her daughter( [...] once every month. To be administered at [facility] by nurse 1 mL 12 oxybutynin [...] some time. She was ultimately discharged to retirement facility. Of note the patient has baseline mild dementia. The daughter states that when she got to the retirement facility in early May she was back to close to her baseline mentation however over the last few weeks she is taken a significant decline from a mentation cognitive perspective. Of note, she has had recurrent UTIs which I think may be playing a factor. Her CT scan that was done yesterday shows complete resolution of her right subdural hematoma. I did counselor education professor her that the recovery of traumatic brain [...] plan. Tika Jones MD Department of Neurosurgery [facility] This note was partially generated using Teliportme voice recognition system, and there may be some incorrect words, spellings, and punctuation that were not noted in checking the note before saving. documented in this encounter [facility] 08-03-2024 Note [facility] 08-01-2024 Telephone encounter Note Vidhi from [facility] called [phone] called to inform that the needed the prior authorization number for patients CT scan. Provided referral # and authorization # as well. Notified Dr. Jones and primary nurse Sarika. Monika Fried RN [facility] 08-01-2024 Miscellaneous Notes Vidhi from [facility] called [phone] called to inform that the needed the prior authorization number for patients CT scan. Provided referral # and authorization # as well. Notified Dr. Jones and primary nurse Sarika. Monika Fried RN documented in this encounter [facility] 07-04-2024 Telephone encounter Note I called [facility] and let her know that per [facility] patient is now WBAT. Glendy Fry [facility] 07-04-2024 Miscellaneous Notes I called [facility] [...] them back. Glendy Fry X-rays were good, rbeekah were able to be removed and [facility] will call with any further questions. Next x-ray to be done in 8 weeks. Glendy Fry I spoke with Vidhi @ the [facility] and x-rays were completed. I called [facility] and they emailed them. I forwarded to doctor to review. They also want to remove rebekah and they will email a pic for review. Glendy Fry 2 view L femur x-rays to be done on 05-29 with films to view Glendy Fry documented in this encounter [facility] 07-04-2024 Telephone encounter Note [facility]-called to see if we rec'd the films yet. I let her know we did not but I will call [facility] and have them emailed in. Glendy Fry [facility] 06-20-2024 Telephone encounter Note This Rx was cancelled upon discharge from [facility]~the trauma surgery team on 05/19. Patient should discuss with surgeon re resuming . [facility] Work Phone: 06-20-2024 Miscellaneous Notes This Rx was cancelled upon discharge from [facility]~the trauma surgery team on 05/19. Patient should discuss with surgeon re resuming . Images from the original note were not included. documented in this encounter [facility] 06-20-2024 Telephone encounter Note Images from the original note were not included. [facility] 06-09-2024 Telephone encounter Note nurse Ivelisse, called and the patient's daughter is requesting the x-ray to be done sooner more like the beginning of July to see if there have been any changes. I will check with the doctor and call them back. Glendy Fry [facility] 06-01-2024 Telephone encounter Note X-rays were good, rebekah were able to be removed and [facility] will call with any further questions. Next x-ray to be done in 8 weeks. Glendy Fyr [facility] 05-30-2024 Telephone encounter Note I spoke with [facility] @ the SNF and x-rays were completed. I called [facility] and they emailed them. I forwarded to doctor to review. They also want to remove rebekah and they will email a pic for review. Glendy Fry [facility] 05-29-2024 Telephone encounter Note Kathrine from [facility] calling asking for a copy of patient immunizations to be faxed to [phone]. Printed and faxed as requested. [facility] 05-29-2024 Miscellaneous Notes Kathrine from [facility] calling asking for a copy of patient immunizations to be faxed to [phone]. Printed and faxed as requested. documented in this encounter [facility] 05-22-2024 Telephone encounter Note 2 view L femur x-rays to be done on 05-29 with films to view Glendy Fry [facility] 05-22-2024 Telephone encounter Note Faxed November 2023 ov notes to [facility], per Natalya request. Natalya needed ov notes that included medication list and problem list. Reports patient was d/c'd from [facility] to their retirement/rehab. Reports patient Dx: subdural hemorrage from a fall, and left knee fracture also from fall. [facility] 05-22-2024 Miscellaneous Notes Faxed November 2023 ov notes to [facility], per Natalya request. Natalya needed ov notes that included medication list and problem list. Reports patient was d/c'd from [facility] to their retirement/rehab. Reports patient Dx: subdural hemorrage from a fall, and left knee fracture also from fall. documented in this encounter [facility] 05-22-2024 Telephone encounter Note I spoke with the patient and scheduled an appointment. Glendy Fry [facility] 05-22-2024 Miscellaneous Notes I spoke with [...] name and Date of (Y/N): y Patient: Mriiam Davenport Date of : 1940 Previous Provider [...] than patient: Pamela Ortiz Best contact number: [phone] Thank you, Natasha Nelson May 22, 2024 10:28 AM documented in this encounter [facility] 05-22-2024 Telephone encounter Note ----- Message from Natasha [employer] sent at 05/22/2024 10:28 AM EST ----- [...] than patient: Pamela Ortiz Best contact number: [phone] Thank you, Natasha Nelson May 22, 2024 10:28 AM [facility] 05-19-2024 Note [facility] 05-18-2024 Note [facility] 05-18-2024 Note [facility] 05-18-2024 Note [facility] 05-17-2024 Note [facility] 05-17-2024 Note [facility] 05-16-2024 Note [facility] 05-16-2024 Note [facility] 05[facility]16-2024 Note [facility] 05-15-2024 Note [facility] 05-15-2024 Note [facility] 05-15-2024 Note [facility] 05-14-2024 Note [facility] 05-14-2024 Note [facility] 05-14-2024 Note [facility] 05-13-2024 Note [facility] 05-13-2024 Note [facility] 05-13-2024 Note HNO ID: [id number] Author: NOTE, INTERFACE, ? Service: ? Author Type: ? Type: Progress Notes Filed: 05/18/2024 16:04 Note Text: Epic Scheduled Downtime: 05/13/2024 1:00:00 AM to 05/13/2024 2:52:17 AM [facility] 05-12-2024 Note [facility] 05-12-2024 Note [facility] 05-12-2024 Note [facility] 05-11-2024 Note [facility] 05-11-2024 Note [facility] 05-11-2024 Note [facility] 05-11-2024 Note [facility] 05-11-2024 Note [facility] 05-11-2024 Note [facility] 05-11-2024 Note [facility] 05-10-2024 Note [facility] 05-10-2024 Telephone encounter Note Last read by Shelley Davenport at 1:22 PM on 05/09/2024. Tana Tirado [facility] 05-10-2024 Miscellaneous Notes Last read by Shelley Davenport at 1:22 PM on 05/09/2024. Tana Tirado Images from the original note were not included. Adina Lay APRN.HIMA P [facility] 6 month follow up with Dr. Walker 1st attempt Sent mc to call office. Jonathon Morse PAC documented in this encounter [facility] 05-10-2024 Note [facility] 05-10-2024 Note [facility] 05-10-2024 Note [facility] 05-09-2024 Note [facility] 05-09-2024 Note [facility] 05-09-2024 Telephone encounter Note Images from the original note were not included. Adina Lay APRN.CNP [facility] 6 month follow up with Dr. Walker 1st attempt Sent mc to call office. Jonathon Lito PAC [facility] 05-09-2024 Note [facility] 05-09-2024 Instructions Adina Lay APRN.CNP - 05/09/2024 10:36 AM EST Plan: 1) stay on the same dose of Mounjaro 2) return to Dr. Rajiv Walker in 6 months documented in this encounter [facility] 05-09-2024 Note [facility] 05-09-2024 Note [facility] 05-08-2024 Note [facility] 05-08-2024 Note [facility] 05-08-2024 Note [facility] 05-08-2024 Note [facility] 05-07-2024 Note [facility] 05-07-2024 Note [facility] 05-07-2024 Note [facility] 05-07-2024 Note [facility] 05-07-2024 Note [facility] 05-07-2024 Note [facility] 05-07-2024 Note [facility] 05-07-2024 Note [facility] 05-06-2024 Note [facility] 05-06-2024 Note [facility] 05-06-2024 Note [facility] 05-06-2024 Note [facility] 05-06-2024 History of Present illness Narrative Images from the original note were not included. CRITICAL CARE TRANSPORT MEDICAL CONTROL CONSULT NOTE Patient Name: Miriam Davenport Service Date: May 06, 2024 Referring Facility: [facility] Accepting Facility: [facility] REASON FOR TRANSPORT: higher level of [...] consult, significant for dementia who presented to [facility] for evaluation of SAH s/p fall. [...] read back via telephone with CCT Transport bridge crew member, Santos Douglas RN SIGNATURE: Amanda Patterson APRN.CNP Acute Care Nurse Practitioner Critical Care Transport documented in this encounter [facility] 05-05-2024 History of Present illness Narrative DISTANCE HEALTH VISIT This Team Access Model visit is a virtual encounter. It required patient-provider interaction for the medical decision making as documented below. I have communicated my name and active licensure. The patient's identity and physical location were verified at the time of this visit. Either the patient or their legal training representative has been informed of the risks [...] mailing) Data Review daughter Hardy has iPhone=Von ([phone]) History Diabetes type 2, dx 1990 last eye exam November, had cataract surgery, no DM eye disease December 2022, though has early macular degen no hx [facility], stroke, claudication, intolerant of statins, niacin and [...] x 3. 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 pnv/iron,carb/om-3/fa/fat 1(PRE-JIYM MULTIVITAMINS WITH MINERALS 27 MG-1 MG-300 MG [...] Tape [Other] documented in this encounter [facility] 05-03-2024 Telephone encounter Note Appointment needs to be rescheduled with Dr. Raymundo Jensen [facility] 05-03-2024 Miscellaneous Notes Appointment needs to be rescheduled with Dr. Raymundo Jensen documented in this encounter [facility] 04-28-2024 Instructions Guillaume Dominguez MD - [...] Montelongo in May. - Next appointment with body finisher Adina Lay on May 05. - Schedule an appointment with Dr. Knott for dementia evaluation. documented in this encounter [facility] 04-28-2024 History of Present illness Narrative This note was created using Jewel Tonedriter. Subjective Miriam Davenport is a 84 year [...] which she discontinued 2 years ago with bi analyst approval. She is not currently following with a bi analyst. 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 To be administered at [facility] by nurse apixaban (ELIQUIS) 5 mg [...] was 6.3% in January. - Follow-up with body finisher Adina Lay on May 05. # Vitamin [...] which included preparing to see the patient, [id number] patient care, completing clinical documentation, obtaining and/or reviewing separately obtained history, performing a medically appropriate examination, and counseling and educating the patient/family/caregiver. Guillaume Dominguez MD documented in this encounter [facility] 04-14-2024 Telephone encounter Note Received voicemail [...] something scheduled soon. My phone number is [phone]. I am her medical proxy. Thank you. Left L4-5 lumbar transforaminal epidural steroid injection 03-30-[address] Montelongo Last office visit with Nic Garcia APRN.YARDING SUPERVISOR 03-10-24 Call to patient's daughter. Started [...] gel, ice/heat, rest. She verbalized understanding. [facility] 04-14-2024 Miscellaneous Notes Received voicemail 04-14-24 [...] something scheduled soon. My phone number is [phone]. I am her medical proxy. Thank you. Left L4-5 lumbar transforaminal epidural steroid injection 03-30-[address] Montelongo Last office visit with Nic Garcia APRN.YARDING SUPERVISOR 03-10-24 Call to patient's daughter. Started at 9/10 pain level prior to injection, the injection has taken the pain down to a 5/10, but now within the past week it has gone back up to 7/10. She is able to walk, but pain is increasingly going up. Spoke to HAZEL Hough who recommended patient seeing Dr. Montelongo versus Oralia Garcia APRN.YARDING SUPERVISOR. Will have PSS reach out to daughter Hardy to schedule. Informed daughter of OTC remedies patient can use as long as there are no other contraindications including tylenol/ibuprofen, lidocaine/voltaren gel, ice/heat, rest. She verbalized understanding. documented in this encounter [facility] 03-10-2024 Telephone encounter Note Procedure: Left L4-5 TFESI Procedure Date: 03/30/2024 Cardiac Clearance: Eliquis Cardiac Clearance letter generated and faxed to patient's PCP, Dr. Guillaume Dominguez, for approval to hold Eliquis for two days prior to injection procedure. Fax confirmation received. Awaiting determination. [facility] 03-10-2024 Miscellaneous Notes Procedure: Left L4-5 TFESI Procedure Date: 03/30/2024 Cardiac Clearance: Eliquis Cardiac Clearance letter generated and faxed to patient's PCP, Dr. Guillaume Dominguez, for approval to hold Eliquis for two days prior to injection procedure. Fax confirmation received. Awaiting determination. documented in this encounter [facility] 03-10-2024 History of Present illness Narrative Subjective Miriam Davenport presents to [facility] for a follow up [...] which included preparing to see the patient, [id number] patient care, completing clinical documentation, performing a [...] 10, 2024 documented in this encounter [facility] 01-13-2024 Miscellaneous Notes Daughter Hardy called to get a list of pt's allergies to [facility]. Pt broke her hip on Wednesday01-10-24 and had surgery on 01-11-24. Pt now in TCU at [facility]. Pt was given Hydrocodone and daughter reports pt is allergic to this. Pt is itching and daughter is upset because they never contacted her. I called TCU and got their fax and faxed over the allergy list. Faxed the snapshot over to [phone], attn: Martine. Marquita Mclaughlin LPN documented in this encounter [facility] 01-13-2024 Telephone encounter Note Daughter Hardy called to get a list of pt's allergies to [facility]. Pt broke her hip on Wednesday01-10-24 and had surgery on 01-11-24. Pt now in TCU at [facility]. Pt was given Hydrocodone and daughter reports pt is allergic to this. Pt is itching and daughter is upset because they never contacted her. I called TCU and got their fax and faxed over the allergy list. Faxed the snapshot over to [phone], attn: Martine. Marquita Mclaughlin LPN [facility] 01-10-2024 History of Present illness Narrative [...] URINALYSIS WITH MICROSCOPIC, REFLEX CULTURE Comfort Patterson APRN.CHEMICAL ENGINEERING TECHNICIAN Medical Decision Making: Problems: Low: Acute, uncomplicated illness or injury Data: Unique test(s) ordered: 2 Risk: Moderate: Drug management Medical Decision Making Level: 3 - Low documented in this encounter [facility] 01-10-2024 Instructions Comfort Patterson APRN.CNS - [...] A physician, nurse practitioner or physician assistant prosecuting attorney may treat with a short course of [...] symptoms resolve. documented in this encounter [facility] 12-27-2023 History of Present illness Narrative [...] PATIENT PRESENTS WITH AN IMPLANTABLE OR ATTACHED TWIST TESTER: No RADIOLOGY DEPARTMENT: General X-ray: Exam(s) Completed: Lower Extremity X-Ray(s): Knee, AP / LAT Right PERIPHERAL IV DATA: Not applicable SIGNED BY: RT Luis(R) December 27, 2023 1:34 PM documented in this encounter [facility] 12-24-2023 History of Present illness Narrative [...] once every month. 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 Anxiety State - 07/28/2007 Pernicious Anemia - 04/13/2007 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 - 03/29/2007 Eating Disorder, Unspecified - 03/29/2007 Occlusion and Stenosis of Carotid Artery Without Mention of Cerebral Infarction - 03/09/2006 Comment: mild stenosis shown on u/s at [facility] u/s repeated 02/02/07 with no change [...] Caputo APRN-HIMA documented in this encounter [facility] 12-21-2023 Telephone encounter Note DaughterLashaun, reports [...] RN December 21, 2023 1:12 PM [facility] 12-21-2023 Miscellaneous Notes Lashaun Cho, reports [...] 1:12 PM documented in this encounter [facility] 12-10-2023 History of Present illness Narrative This note was created using Jewel Tonedriter. Subjective Miriam Davenport is a 83 year old female. Patient presents with: F/U 6 months SUBJECTIVE: Miriam Davenport is a 83 year old year old lady here today for 6 month follow up appointment for review of medical conditions. Doing well at [facility]. Likes their rooms (there with her [...] Would like to pursue geriatric consultation in [place]. 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 TELECOMMUNICATIONS OFFICER outside facility Apr 1997 MORBID OBESITY 08/18/2007 Obstructive sleep apnea Sleep study 2003 Occlusion and stenosis of carotid artery without mention of cerebral infarction 03/09/2006 mild stenosis shown on u/s at [facility] u/s repeated 02/02/07 with no change Open fracture of tuft of distal phalanx of finger 05/06/2022 PAC (premature atrial contraction) Pulmonary embolism (HCC) Pure hypercholesterolemia Type II or unspecified type diabetes mellitus with renal manifestations, uncontrolled(250.42) Unspecified glaucoma(365.9) Unspecified pruritic disorder Current Outpatient Medications Medication Sig cyanocobalamin 1,000 mcg/mL Inject 1 mL intramuscularly once every month. To be administered at [facility] by nurse apixaban (ELIQUIS) 5 mg [...] Abs Lymph 1.00 - 4.00 k/uL 1.35 Mineral% % 8.4 Abs Mineral <0.87 k/uL 0.70 Eosin% % 1.7 Abs [...] trying to eat healthy diet at [facility]. Will verify when will need [...] Dominguez MD documented in this encounter [facility] 11-12-2023 Telephone encounter Note Daughter calls asking about status of request. Daughter notified that order was faxed over to [facility] this am. Tabitha Madrid RN [facility] 11-12-2023 Miscellaneous Notes Daughter calls asking about status of request. Daughter notified that order was faxed over to [facility] this am. Tabitha Madrid RN Spoke with nurse shelley Chambers and she states prescription can be faxed to them at [phone]. Prescription faxed See if faxed of order that was printed is what they need. Otherwise, call in the order if that is what they need Patient's request for medication is as follows: Requested Prescriptions Signed Prescriptions Disp Refills cyanocobalamin 1,000 mcg/mL 1 mL 12 Sig: Inject 1 mL intramuscularly once every month. To be administered at [facility] by nurse Authorizing Provider: GUILLAUME DOMINGUEZ Prescription(s) printed as above. Please process accordingly. Daughter (Hardy) calls to report that patient is now residing at [facility] and they are able to give patient her monthly B-12 injections. Daughter requests that an order for [facility] be given so that they are able to administer medication. Per daughter: [facility] Nurse Line: [phone] Patient cancelled last weeks appointment so is due anytime for injection. Please review and advise. Anne Jennings RN documented in this encounter [facility] 11-12-2023 Telephone encounter Note Spoke with nurse shelley Chambers and she states prescription can be faxed to them at [phone]. Prescription faxed [facility] 11-11-2023 Telephone encounter Note See if faxed of order that was printed is what they need. Otherwise, call in the order if that is what they need Patient's request for medication is as follows: Requested Prescriptions Signed Prescriptions Disp Refills cyanocobalamin 1,000 mcg/mL 1 mL 12 Sig: Inject 1 mL intramuscularly once every month. To be administered at [facility] by nurse Authorizing Provider: GUILLAUME DOMINGUEZ Prescription(s) printed as above. Please process accordingly. [facility] 11-11-2023 Telephone encounter Note Spoke to patient's daughter and confirmed that [facility] address was correct and she provided the room number, which is 186. Letter has been put in the mail. [facility] 11-11-2023 Miscellaneous Notes Spoke to patient's daughter and confirmed that [facility] address was correct and she provided the room number, which is 186. Letter has been put in the mail. documented in this encounter [facility] 11-08-2023 Telephone encounter Note Daughter (Hardy) calls to report that patient is now residing at [facility] and they are able to give patient her monthly B-12 injections. Daughter requests that an order for [facility] be given so that they are able to administer medication. Per daughter: [facility] Nurse Line: [phone] Patient cancelled last weeks appointment so is due anytime for injection. Please review and advise. Anne Jennings RN [facility] 10-29-2023 Instructions Curtis Nassar MD - [...] Nassar MD documented in this encounter [facility] 10-29-2023 History of Present illness Narrative [...] MD Data Review daughter Hardy has iPhone=FaceTime ([phone]) History Diabetes type 2, dx 1990 last eye exam November, had cataract surgery, no DM eye disease December 2022, though has early macular degen no hx [facility], stroke, claudication, intolerant of statins, niacin and [...] x 3. 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 Requested Prescriptions Pending Prescriptions Disp Refills apixaban (ELIQUIS) 5 mg tab(s) 60 tablet 11 Sig: Take 1 tablet by mouth two times a day. Guillaume Dominguez MD [facility] 10-29-2023 Miscellaneous Notes The following approved [...] Natalya Byrd. documented in this encounter [facility] 10-29-2023 Telephone encounter Note Daughter calls to let provider know she only has enough Eliquis to last through tomorrow 10/30/2023. Anne Jennings RN [facility] 10-28-2023 Telephone encounter Note Patient has [...] Please advise. Thank you. Natalya Atkinson Pss. [facility] Work Phone: 10-11-2023 History of Present [...] to go to assisted living at [facility].She notes currently getting assistance with medications [...] seen Dr Alegre and Dr. Schmitt [facility] cardiologists. 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 per TELECOMMUNICATIONS OFFICER outside facility Apr 1997 MORBID OBESITY 08/18/2007 Obstructive sleep apnea Sleep study 2003 Occlusion and stenosis of carotid artery without mention of cerebral infarction 03/09/2006 mild stenosis shown on u/s at [facility] u/s repeated 02/02/07 with no change [...] Lymph 1.00 - 4.00 k/uL 1.90 1.35 Mineral% % 8.5 8.4 Abs Mineral <0.87 k/uL 0.78 0.70 Eosin% % 2.0 [...] appointment 12/09 at 3:25pm MD Comfort Acosta APRN.CHEMICAL ENGINEERING TECHNICIAN Medical Decision Making: Problems: Moderate: 2+ stable chronic illnesses Data: Unique test result(s) reviewed: 3+ Risk: Low: Low risk from testing/treatment Medical Decision Making Level: 4 - Moderate documented in this encounter [facility] 10-08-2023 Telephone encounter Note Yes she can go back on Mounjaro 5 mg once a week. She can take Mounjaro 1 week after taking ozempic. If there is a shortage of Mounjaro, she will need 1 mg of ozempic (not 0.5 mg). Rx Mounjaro was sent to [facility] Walker MD [facility] 10-08-2023 Miscellaneous Notes Yes she can go back on Mounjaro 5 mg once a week. She can take Mounjaro 1 week after taking ozempic. If there is a shortage of Mounjaro, she will need 1 mg of ozempic (not 0.5 mg). Rx Mounjaro was sent to [facility] in [place] Rajiv Walker MD Pts daughter states pt took Ozempic starting 10/02/23, since Mounjaro was on back order, and her blood sugars have been high ever since. She states [facility] in [place] contacted pt to let her know medication was back in stock. She would like to know if it would be okay for pt to switch back to Mounjaro for her next dose, this Wednesday. [facility] [phone] documented in this encounter [facility] 10-07-2023 Telephone encounter Note Pts daughter states pt took Ozempic starting 10/02/23, since Mounjaro was on back order, and her blood sugars have been high ever since. She states [facility] in [place] contacted pt to let her know medication was back in stock. She would like to know if it would be okay for pt to switch back to Mounjaro for her next dose, this Wednesday. [facility] [phone] [facility] 10-04-2023 History of Present illness Narrative Patient presents for B-12 injection. Denies any problems at this time. Patient instructed on any SE of medication, verbalized understanding and agreed to proceed with treatment. Tolerated injection well. Ning Mckeon LPN documented in this encounter [facility] 09-29-2023 Note Addended by: RAJIV WALKER on: 09/29/2023 08:01 PM Modules accepted: Orders [facility] 09-29-2023 Miscellaneous Notes Addended by: RAJIV [...] does not have any Mounjaro. Hardy, daughter: [phone] documented in this encounter [facility] 09-29-2023 Telephone encounter Note She can [...] once a week. Rajiv Walker MD [facility] 09-29-2023 Telephone encounter Note RN returned phone call. Let patient's daughter Hardy know that once the provider reviews chart, we'll get back to her with alternative prescription. 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 PSS: it is ok to transfer Hardy's call. [facility] 09-28-2023 Telephone encounter Note September 28, 2023 3:13 PM Patient's daughter called about the Mounjaro medication for patient. She is concerned as there is a national backorder on the Mounjaro medication. She wants to know if there is an alternative or what can be done in the meantime. Patient currently does not have any Mounjaro. Hardy, daughter: [phone] [facility] 09-17-2023 Miscellaneous Notes The following approved [...] Jeanne Davalos. documented in this encounter [facility] 09-06-2023 History of Present illness Narrative Patient presents for B-12 injection. Denies any problems at this time. Patient instructed on any SE of medication, verbalized understanding and agreed to proceed with treatment. Tolerated injection well. Ning Mckeon LPN documented in this encounter [facility] 08-16-2023 Miscellaneous Notes Pts daughter called [...] provider sends a new script in to [facility] for 20 mg take 2 tablets daily, [employer] will cover that. Called and confirmed with [facility] pharmacist that they had run the 40 [...] a voicemail. documented in this encounter [facility] 08-16-2023 Miscellaneous Notes DNR comfort care orders faxed to [facility] Medical Records at [phone]. Copy also sent to scanning as well as copy mailed to patients home address as requested. MICHAEL Vazquez documented in this encounter [facility] 08-13-2023 Miscellaneous Notes This was already done. Pharmacy notified. Pharmacy reports Cymbalta 40 mg needs a PA. PRIOR AUTHORIZATION Medication for Prior Authorization: Duloxetine Cymbalta 40 mg Other formulary meds available : NO Insurance Company: [employer] Medicare part D Insurance Company phone number: [phone] Patient insurance ID number: [id number] Marquita Mclaughlin LPN documented in this encounter [facility] 08-13-2023 Miscellaneous Notes Images from the original note were not included. Prior authorization approved Payer: [employer] [id number] PA Case: [id number], Status: Approved, Coverage Starts on: 05/31/2023 12:00:00 [...] to its destination. To be filled at: [id number] [place] [address] - [address] [facility] [phone] [id number] Electronic PA completed for duloxetine (cymbalta) documented in this encounter [facility] 08-13-2023 Instructions Josefa Caputo APRN.CNP - 08/13/2023 11:20 AM EDT Plan to see Dr. Knott with geriatrics here in [place] sometime in November or after. documented in this encounter [facility] 08-13-2023 History of Present illness Narrative [...] brain health/wellness. has had x2 strokes, in retirement. 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 Knott once seeing patient here in [place]. 4. Anxiety disorder, unspecified type - ICD9: [...] Caputo APRN-HIMA documented in this encounter [facility] 08-11-2023 Instructions Martha Germain DO - 08/11/2023 9:59 AM EDT Appointments: - Brain Health and Wellness [facility]: [phone] (option 1). This is a series of 6 group visits where you will learn how to improve your memory with a healthy lifestyle. It is available as a virtual visit or in [place] on Wednesdays 10-noon, 6 visits every other week. Next group starts January 04. - [facility] Successful Aging Program (geriatrics): [phone] Follow these guidelines to improve your memory and brain function: - Follow the MIND Diet as closely as possible. See the dietary guidelines below. - Do some form of physical activity every day, even for 5-10 minutes. The goal is to move more and sit less. See the physical activity guidelines below. Find an exercise class at the [facility] and go once a week. - Engage in social activities as much as possible. Talking to other people is good for the brain! - Consider volunteering. It provides social interaction, purpose, structure, and a way to give back to the community. Opportunities can be found at www.[email or web address]. [email or web address] - Play games at least 3x/week that will stimulate and challenge your brain. Brain games are available on the following websites: Markafoni and Digium. - Practice meditation or deep breathing for [...] the Lancet Commission - Great resource in [place] for patients and families: [employer] https://Kazeon.org/ - Memory Cafes (A Dementia Friendly LIFE) in [facility]. [email or web address].[email or web address]/memory-cafes - We Care program for caregivers through [facility] Sorensen [place]: [phone] or [email or web address] Memory research at [facility]: The [facility] at [facility] and [place], [place] is conducting clinical trials to advance new treatments and diagnostic approaches for patients with memory loss, as well as cognitively normal patients. To learn more about current trials at [facility] please call the [facility] Research Line at [phone], leave a message and one of our staff will contact you. documented in this encounter [facility] 08-11-2023 History of Present illness Narrative [facility] SUBJECTIVE: Miriam Davenport is a 83 year old female with a pertinent PMH as listed below who presents for a cognitive screening and assessment of modifiable risk factors of cognitive decline. Consultation requested by Comfort Patterson APRN.CHEMICAL ENGINEERING TECHNICIAN for an opinion regarding Mirima Davenport. My final recommendations will be communicated back to the referring provider by way of shared medical record. Accompanied by: rehan Riuz HPI: Shelley is concerned about her memory [...] be coming home soon. Hardy lives in [place] and comes 2x/month to help out. 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 per TELECOMMUNICATIONS OFFICER outside facility Apr 1997 MORBID OBESITY 08/18/2007 Obstructive sleep apnea Sleep study 2003 Occlusion and stenosis of carotid artery without mention of cerebral infarction 03/09/2006 mild stenosis shown on u/s at [facility] u/s repeated 02/02/07 with no change [...] for infectious vulvitis Blood-Glucose Meter,Continuous (DEXCOM G7 ASSEMBLER FINGER BUFFS) american hospital association use to check sugars Blood-Glucose Sensor (DEXCOM [...] (1 is true, 0 is false): 0 [place] Cognitive Assessment (MoCA): 22 Score of 26 [...] benefit from the [facility] Wellness [facility] to learn the tools to protect against cognitive decline and improve working memory. The [facility] will provide education on the evidence-based aspects of a healthy lifestyle that can positively impact cognitive function (nutrition, physical activity, restorative sleep, stress management). Assessments completed in clinic today will be scanned into the medical record. (G31.84) Mild cognitive impairment (primary encounter diagnosis) Comment: MOCA Plan: CONSULT TO GERIATRICS, CONSULT TO BRAIN HEALTH & WELLNESS [facility] Today we reviewed: Modifiable risk factors of cognitive decline Referrals: [facility] Geriatrics Successful Aging Program Lifestyle recommendations [...] games are available on the following websites: VocalZoom, Markafoni, and Digium. - Practice meditation or deep breathing for a few minutes each day. You can sit quietly and focus on your breath or listen to a guided meditation on an madhavi such as [employer]. - Resources provided including information on memory research at the . (G47.33) ASIM (obstructive sleep apnea) Comment: untreated Plan: She declines referral to sleep medicine and does not want to address this now. Discuss at a future visit. Return after [facility] I spent 65 minutes in [id number] time with the patient of which greater than 50% of the time was spent in counseling and coordination of care. Martha Germain DO, MPH Wellness and Preventive Medicine [facility] CC: Comfort Harpers [address] [facility] [id number] documented in this encounter [facility] 08-02-2023 History of Present illness Narrative Patient presents for B-12 injection. Denies any problems at this time. Patient instructed on any SE of medication, verbalized understanding and agreed to proceed with treatment. Tolerated injection well. 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 per TELECOMMUNICATIONS OFFICER outside facility Apr 1997 MORBID OBESITY 08/18/2007 Obstructive sleep apnea Sleep study 2003 Occlusion and stenosis of carotid artery without mention of cerebral infarction 03/09/2006 mild stenosis shown on u/s at [facility] u/s repeated 02/02/07 with no change [...] for infectious vulvitis Blood-Glucose Meter,Continuous (DEXCOM G7 ASSEMBLER FINGER BUFFS) american hospital association use to check sugars Blood-Glucose Sensor (DEXCOM [...] Past Histories independently gathered by the clinical instructional support services director and the remaining scribed note accurately describes my personal service to the patient. 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 per TELECOMMUNICATIONS OFFICER outside facility Apr 1997 MORBID OBESITY 08/18/2007 Obstructive sleep apnea Sleep study 2003 Occlusion and stenosis of carotid artery without mention of cerebral infarction 03/09/2006 mild stenosis shown on u/s at [facility] u/s repeated 02/02/07 with no change [...] 473 mL 11 Blood-Glucose Meter,Continuous (DEXCOM G7 ASSEMBLER FINGER BUFFS) misc use to check sugars (Patient not [...] mcg INTRAMUSCULAR q 1 MONTH Josefa Caputo APRN.YARDING SUPERVISOR 1,000 mcg at 07/05/23 1336 perflutren [...] Abs Lymph 1.00 - 4.00 k/uL 1.90 Mineral% % 8.5 Abs Mineral <0.87 k/uL 0.78 Eosin% % 2.0 Abs [...] Walker MD documented in this encounter [facility] 07-07-2023 Miscellaneous Notes Called pt and [...] are signed. documented in this encounter [facility] 06-25-2023 Instructions Nhi De La Torre [...] 1 year. documented in this encounter [facility] 06-25-2023 History of Present illness Narrative Images from the original note were not included. [facility] [place] Lonnie Brandon Department of Cardiovascular Medicine SECTION [...] which included preparing to see the patient, [id number] patient care, completing clinical documentation, performing a [...] the follow up. Nhi De La Torre, GM.[facility] Cardiology Nurse Practitioner Section of [facility] Cardiology 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 Nhi De La Torre, MANAGING EDITOR.YARDING SUPERVISOR CURRENT MEDICATIONS: Current Outpatient Medications Medication [...] mouth once daily. 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 Blood-Glucose Meter,Continuous (DEXCOM G7 ASSEMBLER FINGER BUFFS) [facility] use to check sugars (Patient not taking: [...] know if decide wants referral for [facility] Center evaluation 2. Vitamin D deficiency E55.9 [...] ARTIS SCREENING 6. Encounter for immunization Z23 MoSo COVID-19 VACCINE (2022- [place]) AGE 12+ YR [...] noted above, will pursue consult to [facility] for cognitive testing, etc. Guillaume Dominguez MD documented in this encounter [facility] 05-04-2023 History of Present illness Narrative Patient presents for B-12 injection. Denies any problems at this time. Patient instructed on any SE of medication, verbalized understanding and agreed to proceed with treatment. Tolerated injection well. Ning Mckeon LPN documented in this encounter [facility] 03-30-2023 Instructions Curtis Nassar MD - [...] Nassar MD documented in this encounter [facility] 03-30-2023 History of Present illness Narrative Virtual Visit utilizing both audio and video components Von I have communicated my name and active licensure. The patient's identity and physical location were verified at the time of this visit. 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 per TELECOMMUNICATIONS OFFICER outside facility Apr 1997 MORBID OBESITY 08/18/2007 Obstructive sleep apnea Sleep study 2003 Occlusion and stenosis of carotid artery without mention of cerebral infarction 03/09/2006 mild stenosis shown on u/s at [facility] u/s repeated 02/02/07 with no change [...] Tape [Other] documented in this encounter [facility] 03-18-2023 Miscellaneous Notes Okayed Patient last visit with PCP 02/02/23 Follow up appointment scheduled 05/14/23 Rayne Winter Ma documented in this encounter [facility] 03-04-2023 History of Present illness Narrative Patient presents for B-12 injection. Denies any problems at this time. Patient instructed on any SE of medication, verbalized understanding and agreed to proceed with treatment. Tolerated injection well. Ning Mckeon LPN documented in this encounter [facility] 02-19-2023 Miscellaneous Notes Patient reports she [...] Chisholm RN documented in this encounter [facility] 02-04-2023 History of Present illness Narrative Patient presents for B-12 injection. Denies any problems at this time. Patient instructed on any SE of medication, verbalized understanding and agreed to proceed with treatment. Tolerated injection well. Rechecked BP today d/t very low reading at office visit 02/02/23. Patient states that she feels better. Ning Mckeon LPN documented in this encounter [facility] 02-02-2023 History of Present illness Narrative [...] mouth once daily. 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 Osteopenia - 04/20/2008 Comment: 2012 t score -1.7 at [facility] Contact Dermatitis and Other Eczema, Due to Unspecified Cause - 12/07/2007 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 Anxiety State - 07/28/2007 Pernicious Anemia - 04/13/2007 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 - 03/29/2007 Eating Disorder, Unspecified - 03/29/2007 Occlusion and Stenosis of Carotid Artery Without Mention of Cerebral Infarction - 03/09/2006 Comment: mild stenosis shown on u/s at [facility] u/s repeated 02/02/07 with no change Calculus of Gallbladder Without Mention of Cholecystitis Or Obstruction - 04/09/2005 Comment: No evidence obstruction on HIDA scan 03/04 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 [address] new administration order at this time. Ning Mckeon LPN documented in this encounter [facility] 01-28-2023 History of Present illness Narrative [...] Discontinued PROCEDURE TYPE: NM Stress: 16.0 mCi [id number] was administered IV for Rest Imaging at 08:10 by . 46.4 mCi [id number] was administered IV for Stress Imaging at 09:17 by . PATIENT DISCHARGED TO: Ambulatory patient, left [place] department area. A Diagnostic radioactive procedure has taken place, with no further precautions necessary other than routine body substance precautions. More information regarding radiation safety can be found using this link: [email or web address] SIGNATURE: HELENA Julien PATIENT NAME: Miriam Davenport DATE: January 28, 2023 TIME: 9:31 AM PAGER/CONTACT #: documented in this encounter [facility] 01-27-2023 Miscellaneous Notes Spoke with patient regarding reminder for stress test tomorrow and given instructions. documented in this encounter [facility] 01-13-2023 Miscellaneous Notes Form rec'd from [facility] asking directions for pt's anticoagulant. Pcp noted pt can hold anticoagulant 2 days prior to extraction then resume day after extraction. This was faxed back to the number on the form. documented in this encounter [facility] 01-11-2023 History of Present illness Narrative Images from the original note were not included. 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 CARDIAC: [place] palpable in the 5th intercostal space mid [...] patient event(s). Isolated SVEs were frequent (17.7%, [id number]), SVE Couplets were occasional (4.2%, 13463), and SVE Triplets were occasional (1.8%, 95785). Isolated VEs were rare (<1.0%), VE Couplets [...] Continue BB DM II Controlled S/p PE, [facility] 2020 with recurrence after stopping AC per [...] DO, FACC, FCCP, FACOI CC: Guillaume Dominguez [address] [place] [address] documented in this encounter [facility] 01-08-2023 Miscellaneous Notes Patient's daughter notified. Geno Franco RN Rx e-scripted to preferred pharmacy Please notify daughter Hardy at [phone] Message has been routed to provider and [...] her mother, then set it up Hardy [phone] Thank you Veda Cardoza The DME company said that the CGM order should go to [facility]. Order pended below Maia Llanos RN Patients daughter Hardy calling in stating that Dexcom needs to be sent to [facility]. Hardy is asking for a return call to discuss Dexcom Please call Hardy back at [phone] Thank you documented in this encounter [facility] 01-04-2023 History of Present illness Narrative Patient presents for B-12 injection. Denies any problems at this time. Patient instructed on any SE of medication, verbalized understanding and agreed to proceed with treatment. Tolerated injection well. 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 I have a procedure scheduled for December [...] Offered to send pre procedure instructions via [employer] but she states she has had trouble logging in. documented in this encounter [facility] 12-04-2022 Miscellaneous Notes [facility] pharmacy called and states needs a script [...] Morales LPN documented in this encounter [facility] 11-06-2022 History of Present illness Narrative [...] to 11/06/2022 and treatment included: Therapeutic exercise, Self-residential management, and Gait training. Goals for Episode of Care: created on 08/18/22 through 09/29/22 updated 09/17/22 Goals updated on 09/29/2022 through 11/03/22 Goals updated on 11/06/2022. [place] in home exercise program. -- PARTIALLY MET [...] deviations identified in the objective section above. Self-Prison Management: 1: *discussed how lumbar flexion increases [...] Iverson PT documented in this encounter [facility] 11-03-2022 Miscellaneous Notes Patient scheduled with Oralia Garcia CNP in office on 11/06/2022 [place] patient was in to the office today. [...] is persistent? documented in this encounter [facility] 11-03-2022 History of Present illness Narrative Patient presents for B-12 injection. Denies any problems at this time. Patient instructed on any SE of medication, verbalized understanding and agreed to proceed with treatment. Tolerated injection well. 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 Osteopenia - 04/20/2008 Comment: 2012 t score -1.7 at [facility] Contact Dermatitis and Other Eczema, Due to Unspecified Cause - 12/07/2007 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 Anxiety State - 07/28/2007 Pernicious Anemia - 04/13/2007 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 - 03/29/2007 Eating Disorder, Unspecified - 03/29/2007 Occlusion and Stenosis of Carotid Artery Without Mention of Cerebral Infarction - 03/09/2006 Comment: mild stenosis shown on u/s at [facility] u/s repeated 02/02/07 with no change [...] Caputo APRN-HIMA documented in this encounter [facility] 10-12-2022 Miscellaneous Notes Okayed MALGORZATA 08/15/22 NOV 10/27/22 Patient phones requesting refills as follows: Requested Prescriptions Pending Prescriptions Disp Refills apixaban (ELIQUIS) 5 mg tab(s) 60 tablet 11 Sig: Take 1 tablet by mouth twice daily. Please review and advise. Lety Lma documented in this encounter [facility] 10-12-2022 History of Present illness Narrative [...] facilitated with verbal, visual, and tactile cueing. Self-Prison Management: 1: *strongly encouraged pt. to bring [...] Iverson PT documented in this encounter [facility] 10-02-2022 Miscellaneous Notes Letter generated and sent via fax at this time to patient's PCP for approval to hold Eliquis 2 days PRIOR to procedure documented in this encounter [facility] 09-29-2022 History of Present illness Narrative Patient presents for B-12 injection. Denies any problems at this time. Patient instructed on any SE of medication, verbalized understanding and agreed to proceed with treatment. Tolerated injection well. Ning Mckeon LPN documented in this encounter [facility] 09-26-2022 Miscellaneous Notes Patient scheduled in December in [place] with Dr Whitfield. 1st attempt to reach patient. Left message for patient to call office to schedule sooner appointment in Cardiology per PCP. Patient can be seen in [place] by Dr Horowitz or [facility] [phone] Should be seen sooner since she has been symptomatic :Patient scheduled with Dr. Whitfield's first available consult on 01/11. Please advise if that is too far out. documented in this encounter [facility] 09-25-2022 Miscellaneous Notes Patient has been [...] Velvet Kebede Pss documented in this encounter [facility] 09-23-2022 Miscellaneous Notes Patient has been [...] you. Chely Erickson LPN Pharmacy verified in [facility] Patient has been identified by name [...] Atkinson Pss \ documented in this encounter [facility] 09-23-2022 History of Present illness Narrative [...] 12:04 PM documented in this encounter [facility] 09-17-2022 History of Present illness Narrative [...] created on 08/18/22 through 09/29/22 updated 09/17/22 [place] in home exercise program./ partially achieved Patient [...] Patient to be seen for Therapeutic exercise (53434), Neuromuscular re-education (26947), Manual therapy (68129), Self-residential management (66154), Patient/Family/Caregiver Education, Gait Training (53939) PLAN FOR NEXT VISIT: Continue to work [...] house throughout the day. 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 Pain: Pain Pain Level: 4 [...] Vital PT documented in this encounter [facility] 09-14-2022 History of Present illness Narrative [facility] Date: September 14, 2022 - 10:26 AM Chief Complaint: left lower back __ SUBJECTIVE: Ms. Davenport presents to the [place] [facility] [place] for a follow up appointment regarding chronic 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 per TELECOMMUNICATIONS OFFICER outside facility Apr 1997 MORBID OBESITY 08/18/2007 Obstructive sleep apnea Sleep study 2002 Occlusion and stenosis of carotid artery without mention of cerebral infarction 03/09/2006 mild stenosis shown on u/s at [facility] u/s repeated 02/02/07 with no change [...] daily. As directed blood sugar diagnostic (ACCU-CHEK OPLY PLUS TEST STRP) test strip Check sugars [...] Panel: No results found for: UQCANN, UQBNZL, MVQ5DPT, UQAMPH, UQMAMP, UQBUPRE, UQNORBUP, UQMTHD, UQEDDP, UQTRAM, [...] record for those providers who practice within [facility] or with access to [employer] via MD Connect, or via letter. 1. [...] PCP/referring physician. documented in this encounter [facility] 09-11-2022 Miscellaneous Notes Patient returned call [...] to assist documented in this encounter [facility] 09-10-2022 History of Present illness Narrative [...] Vital PT documented in this encounter [facility] 09-03-2022 History of Present illness Narrative [...] Vital PT documented in this encounter [facility] 09-01-2022 History of Present illness Narrative [...] Vital PT documented in this encounter [facility] 09-01-2022 History of Present illness Narrative Patient presents for B-12 injection. Denies any problems at this time. Patient instructed on any SE of medication, verbalized understanding and agreed to proceed with treatment. Tolerated injection well. Ning Mckeon LPN documented in this encounter [facility] 08-26-2022 Miscellaneous Notes Spoke with patient on phone. Aware the office visit from 08/15/22 is closed and she can access via MyChart. Patient requesting copy be printed and sent to her, address checked and correct. Patient inquiring as to whether Cardiology Consult could be scheduled sooner than December, her daughter worried about her waiting that long. Patient may agree to go to [place] if can schedule sooner. Patient aware staffing [...] her after visit summary to the front end ui developer and call her for picking crew supervisor. documented in this encounter [facility] 08-19-2022 History of Present illness Narrative [...] of Care: created on 08/18/22 through 09/29/22 [place] in home exercise program. Patient will decrease [...] Planned: 8 Planned Treatment Interventions: Therapeutic exercise (02414), Neuromuscular re-education (24653), Manual therapy (52610), Self-residential management (50599), Gait Training (46494), Patient/Family/Caregiver Education PLAN FOR NEXT VISIT: Will [...] Demonstration TREATMENT: PT Treatment Interventions: Therapeutic Exercise, Self-Prison Management Evaluation Therapeutic Exercise: 1: seated pink [...] and visual cuing. Patient education as noted. Self-Prison Management: 1: instruction in use of ice [...] Vital PT documented in this encounter [facility] 08-15-2022 Instructions Guillaume Dominguez MD - [...] to lab) documented in this encounter [facility] 08-15-2022 History of Present illness Narrative This note was created using Looking [employer]. Subjective Miriam Davenport is a 82 year [...] Sinus issues with allergies acting up. Noemy [place] at night helps. Does have occasion wheezing--new. 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 per TELECOMMUNICATIONS OFFICER outside facility Apr 1997 MORBID OBESITY 08/18/2007 Obstructive sleep apnea Sleep study 2003 Occlusion and stenosis of carotid artery without mention of cerebral infarction 03/09/2006 mild stenosis shown on u/s at [facility] u/s repeated 02/02/07 with no change [...] the date of the service which included [id number] patient care, completing clinical documentation, obtaining and/or reviewing separately obtained history, performing a medically appropriate examination, counseling and educating the patient/family/caregiver, ordering medications, tests, or procedures, communicating with other HCPs (not separately reported), and independently interpreting results (not separately reported). Guillaume Dominguez MD documented in this encounter [facility] 08-12-2022 Miscellaneous Notes Spoke to pt and scheduled There is already a PT order in from Dr. Montelongo, please call patient to schedule Arelis Monahan APRN.HIMA Patient calls and state that she was given physical therapy referral to [facility] by pain management. Patient states that she went to [facility] and did not like physical therapy. Patient states that [facility] Patient asking if provider can write a referral to physical therapy so that she can go to [facility]? Patient also reports that she has been [...] [place] RN documented in this encounter [facility] 08-12-2022 Miscellaneous Notes Opened in Error documented in this encounter [facility] 08-07-2022 Miscellaneous Notes Pharmacy request refi Last OV 06/10/22 Next 10/23/22 Requested Prescriptions Pending Prescriptions Disp Refills blood sugar diagnostic (ACCU-CHEK POLY PLUS TEST STRP) test strip 100 Each 11 Sig: Check sugars 3 times daily Please review and advise. Katy Fowler RN documented in this encounter [facility] 08-04-2022 Miscellaneous Notes PT location contacted at this time Fax number to send order: [phone] PT order sent via fax at this [...] to be sent to [facility] [place] Instructed patient to wait until tomorrow to [...] to discuss documented in this encounter [facility] 08-04-2022 History of Present illness Narrative Patient presents for B-12 injection. Denies any problems at this time. Patient instructed on any SE of medication, verbalized understanding and agreed to proceed with treatment. Tolerated injection well. Ning Mckeon LPN documented in this encounter [facility] 08-03-2022 Miscellaneous Notes Printed and mailed to patient's home address. Can we please print and resend this one too? Thanks! Pt called in and lost the letter/prescription for the handicap sticker that was given to her on 03-21-22. Requesting a new one be mailed to her. Marquita Mclaughlin LPN documented in this encounter [facility] 07-07-2022 History of Present illness Narrative Patient presents for B-12 injection. Denies any problems at this time. Patient instructed on any SE of medication, verbalized understanding and agreed to proceed with treatment. Tolerated injection well. Ning Mckeon LPN documented in this encounter [facility] 07-07-2022 History of Present illness Narrative This note was created using [employer]. 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 TELECOMMUNICATIONS OFFICER outside facility Apr 1997 MORBID OBESITY 08/18/2007 Obstructive sleep apnea Sleep study 2003 Occlusion and stenosis of carotid artery without mention of cerebral infarction 03/09/2006 mild stenosis shown on u/s at [facility] u/s repeated 02/02/07 with no change [...] Dominguez MD documented in this encounter [facility] 07-02-2022 Miscellaneous Notes Wednesday07/04/22 is not [...] Mclaughlin LPN documented in this encounter [facility] 06-23-2022 Miscellaneous Notes Patient contacted office [...] Closing encounter documented in this encounter [facility] 06-18-2022 Miscellaneous Notes Called and spoke [...] possible side effects. Please advise. Contact Information [phone] Thank you Veda Cardoza documented in this encounter [facility] 06-18-2022 Miscellaneous Notes Called patient and [...] Madrid RN documented in this encounter [facility] 06-11-2022 Instructions Maykel Patel Jr., MD - 06/11/2022 11:52 AM EST Counseled patient on increasing fluids, avoiding salt, avoiding caffeine, avoiding large portions of animal fat/meats at one time and increasing citrates in diet. documented in this encounter [facility] 06-11-2022 Procedure note CYSTOSCOPY PROCEDURE NOTE: Miriam Davenport is a 82 year old female who presents with left side ureteral stent for a cystoscopy, left side ureteral stent removal Pt ID verified with patient: Yes Fire risk assessment done Procedure verified with patient: Yes Procedure confirmed with physician and instructional support services director: Yes UNIVERSAL PROTOCOL / SAFETY CHECKLIST Procedure [...] Jr, MD documented in this encounter [facility] 06-03-2022 Miscellaneous Notes Received voicemail 06-03-22 at 3:24 PM. Hi this is Shelley Davenport calling, [phone]. My birthday is [birth year]. I'm calling about my back. It's very very painful and I really need to have help with it. Thank you very much. Miguel A. Forwarded to Dr. Montelongo's clinical staff. JESSICA Nunes, RN June 03, 2022 4:27 PM documented in this encounter [facility] 05-29-2022 Miscellaneous Notes Pt added to schedule for stent removal. Will call when home from hospital to confirm. Natalya MCINTYRE [facility] or 05/29/22 Cysto stent removal in office 1-2 weeks documented in this encounter [facility] 05-28-2022 Miscellaneous Notes OK, wonderful. Patient aware. Closing. Show up to surgery Patient calling and she was wanted to see what Urine Culture result from 05-26-2022 showed. Aware of this result: Culture No growth (<1,000 CFU/ml) Resulting Agency: [facility] I advised that Surgery still on for tomorrow and she just was checking to make sure. If she needs to do anything else please advise. documented in this encounter [facility] 05-12-2022 History of Present illness Narrative This note was created using SMS GupShupter. Subjective Miriam Davenport is a 82 year old female. Patient presents with: ER F/U SUBJECTIVE: Miriam Davenport is a 82 year old year old lady here today for [facility] follow up appointment for review of medical conditions for middle ring finger fracture. 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 documented in this encounter [facility] 05-06-2022 Miscellaneous Notes Seen in today. [...] any other symptoms? NO Protocols used: Finger [id number] documented in this encounter [facility] 05-06-2022 Instructions Janae Sandoval APRN.YARDING SUPERVISOR - 05/06/2022 4:12 PM EST ASSESSMENT/PLAN: 1. Crushing injury of right middle finger, initial encounter - ICD9: 927.3, ICD10: S67.192A (primary diagnosis) - XR DIGIT GENERAL 3V FRONTAL/LAT/OBL RIGHT Radiologist IMPRESSION: Acute, comminuted fracture of the third distal phalanx subungual tuft. Homicide Squad Lieutenant: KOLE Transcribe Date/Time: May 06 2022 4:13P [...] Discussed expected course of illness Janae Sandoval APRN.YARDING SUPERVISOR FRACTURES GENERAL INFORMATION: A fracture is [...] wet, it can be dried with a hairspring assembler. 4. Do not put pressure on any [...] the cast. 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 Homicide Squad Lieutenant: KOLE Transcribe Date/Time: May 06 2022 4:13P [...] Discussed expected course of illness Janae Sandoval APRN.YARDING SUPERVISOR documented in this encounter [facility] 05-04-2022 History of Present illness Narrative Patient presents for B-12 injection. Denies any problems at this time. Patient instructed on any SE of medication, verbalized understanding and agreed to proceed with treatment. Tolerated injection well. 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 documented in this encounter [facility] 04-28-2022 History of Present illness Narrative PULM FUNCTION SMARTBLOCK: Provider: Guillaume Dominguez MD Assisting Tech: KELSI Carias Spirometry: 1 LV - Box: 1 documented in this encounter [facility] 04-27-2022 History of Present illness Narrative This note was created using Jewel Tonedriter. 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 TELECOMMUNICATIONS OFFICER outside facility Apr 1997 MORBID OBESITY 08/18/2007 Obstructive sleep apnea Sleep study 2003 Occlusion and stenosis of carotid artery without mention of cerebral infarction 03/09/06 mild stenosis shown on u/s at [facility] u/s repeated 02/02/07 with no change [...] Lymph 1.00 - 4.00 k/uL 2.06 1.82 Mineral% % 8.2 7.7 Abs Mineral <0.87 k/uL 0.81 0.81 Eosin% % 1.2 [...] 39.0 to 39.9 in adult ([facility]) E66.01 Z68.39 Weight has trended down though up after gi.Keep up efforts at healthier diet and try to increase activity--planning to go to [employer] for exercise 14. History of Jordin-en-Y gastric [...] Dominguez MD documented in this encounter [facility] 04-10-2022 Miscellaneous Notes Called patient and scheduled. Patient left voicemail 04/09/2022 at 1257 Patient states she is S/P RFA 14 days and is still having significant pain This RN recommends patient to schedule follow up with Dr. Montelongo to discuss care Will forward to clerical team to assist with scheduling follow up with Dr. Montelongo documented in this encounter [facility] 04-08-2022 History of Present illness Narrative [...] 12:24 PM documented in this encounter [facility] 04-06-2022 History of Present illness Narrative Patient presents for B-12 injection. Denies any problems at this time. Patient instructed on any SE of medication, verbalized understanding and agreed to proceed with treatment. Tolerated injection well. Ning Mckeon LPN documented in this encounter [facility] 03-27-2022 Miscellaneous Notes Handicap Placard mailed [...] Jennings RN documented in this encounter [facility] 03-24-2022 Miscellaneous Notes Requester: Patient Patients [...] No need to notify patient. [id number] Isabel Brothers Pss documented in this encounter [facility] 03-19-2022 Miscellaneous Notes Called patient in regards to message below. Message was sent to patient via AppHarbor on 03/10/2022, but was not read. I [...] use for documented in this encounter [facility] 03-11-2022 History of Present illness Narrative SUBJECTIVE: Miriam Davenport presents to [facility] for a follow up [...] activity was identified. 03/11/2022 by Oralia Garcia APRN.YARDING SUPERVISOR Narcotic Agreement reviewed and signed?: N/A [...] which included preparing to see the patient, corl-xh-alit patient care, completing clinical documentation, performing a medically appropriate examination, and ordering medications, tests, or procedures. The above plan and management options were discussed at length with patient. Patient is in agreement with the above and verbalized understanding. 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 I spent a total of 25 minutes on the date of the service which included preparing to see the patient, zwjr-ib-[id number] patient care, completing clinical documentation, obtaining and/or [...] Walters MD documented in this encounter [facility] 03-02-2022 History of Present illness Narrative Patient presents for B-12 injection. Denies any problems at this time. Patient instructed on any SE of medication, verbalized understanding and agreed to proceed with treatment. Tolerated injection well. Pt to also receive COVID booster. Ning Mckeon LPN documented in this encounter [facility] 02-27-2022 Miscellaneous Notes Patient left voicemail 02/26/2022 Patient states that she had sacroiliac block with Dr. Montelongo on 02/17/2022 Patient states by the the evening of 02/20/2022, her pain was back Will need to obtain percentage of improvement during the time it was working as the local anesthetic wore of by the evening of 02/20/2022 documented in this encounter [facility] 02-16-2022 Miscellaneous Notes Patient contacted at [...] Awilda Tate documented in this encounter [facility] 02-10-2022 Instructions Guillaume Dominguez MD - [...] veggies in. documented in this encounter [facility] 02-10-2022 History of Present illness Narrative This note was created using Jewel Tonedriter. 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 Patient tolerated both injections. documented in this encounter [facility] 02-05-2022 Miscellaneous Notes Patient contacted via [...] as possible. Patient can be reached at [phone]. Thank you. Miriam Byrd documented in this encounter [facility] 02-04-2022 Miscellaneous Notes Patient notified Typically [...] Madrid RN documented in this encounter [facility] 02-04-2022 Miscellaneous Notes Pt called back [...] 9:45 AM documented in this encounter [facility] 01-29-2022 Miscellaneous Notes Patient scheduled for nurse visit 02/06/22 to receive B-[address]. [address] new administration order at this time. Ning Mckeon LPN documented in this encounter [facility] 01-19-2022 Instructions Comfort Patterson APRN.CHEMICAL ENGINEERING TECHNICIAN - 01/19/2022 3:15 PM EDT Take one iron pill daily, take with food. 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 per TELECOMMUNICATIONS OFFICER outside facility Apr 1997 MORBID OBESITY 08/18/2007 Obstructive sleep apnea Sleep study 2003 Occlusion and stenosis of carotid artery without mention of cerebral infarction 03/09/06 mild stenosis shown on u/s at [facility] u/s repeated 02/02/07 with no change [...] in dosing 5mg BID indefinitely Comfort Patterson APRN.CHEMICAL ENGINEERING TECHNICIAN Medical Decision Making: Problems: Moderate: 1+ chronic illnesses with change Data: Unique test(s) ordered: 1 Risk: Moderate: Drug management Medical Decision Making Level: 4 - Moderate documented in this encounter [facility] 01-05-2022 History of Present illness Narrative Patient presents for B-12 injection. Denies any problems at this time. Patient instructed on any SE of medication, verbalized understanding and agreed to proceed with treatment. Tolerated injection well. Ning Mckeon LPN documented in this encounter [facility] 12-17-2021 Instructions Sasha Hurley APRN.YARDING SUPERVISOR - 12/17/2021 2:27 PM EDT keflex for 7 days Tylenol/ibuprofen as needed for discomfort AZO otc Increase hydration -Follow up with PCP or return to clinic if symptoms not improving in 3 days or if you develop any new (or worsening) symptoms such as fever, chills or back pain go to ER. documented in this encounter [facility] 12-17-2021 History of Present illness Narrative Subjective The history is provided by the patient. No sparmaker was used. 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 per TELECOMMUNICATIONS OFFICER outside facility Apr 1997 MORBID OBESITY 08/18/2007 Obstructive sleep apnea Sleep study 2003 Occlusion and stenosis of carotid artery without mention of cerebral infarction 03/09/06 mild stenosis shown on u/s at [facility] u/s repeated 02/02/07 with no change Pure hypercholesterolemia Type II or unspecified type diabetes mellitus with renal manifestations, uncontrolled(250.42) Unspecified glaucoma(365.9) Unspecified pruritic disorder I have confirmed and edited as necessary, the [facility] Review of Systems Constitutional: Negative for [...] - Moderate documented in this encounter [facility] 12-15-2021 Miscellaneous Notes Patient notified of [...] Mclaughlin LPN documented in this encounter [facility] 12-04-2021 Miscellaneous Notes Patient returning call from [facility], is requesting a call back at [phone]. Patient states she will not be home [...] Orlando RN documented in this encounter [facility] 11-03-2021 History of Present illness Narrative Patient presents for B-12 injection. Denies any problems at this time. Patient instructed on any SE of medication, verbalized understanding and agreed to proceed with treatment. Tolerated injection well. Ning Mckeon LPN documented in this encounter [facility] 11-03-2021 Nurse Note EVENT MONITOR DISPOSABLE PATCH INSTRUCTIONS Patient Name: Miriam Davenport [facility] Number: [id number] Skin prepped and cleansed with alcohol Patch secured to prepped area Monitor Activated Serial #: [id number] Patient Instructed: 1.) Prescribed order timeframe 2.) Bathing guidelines 3.) Usage of event button and diary documentation 4.) Return of monitor at the end of prescribed order 5.) Call with problems [phone] or [phone]. [phone] Patient expresses a good understanding of instructions Gifty Singh documented in this encounter [facility] 11-03-2021 History of Present illness Narrative [...] going to sit on the toilet. Landed fdc on the toilet and scraped her left [...] SVE. Review of her EKGs available in [facility] suggests frequent SVE developed around 2019 [...] may have occurred. Gamaliel Alegre MD Pager: [phone] Office: [phone] I personally examined the patient and repeated [...] medical regimen Referring Physician: Guillaume Dominguez [address] [place] [address] Com[address] [facility] [address] documented in this encounter [facility] 10-22-2021 Miscellaneous Notes Okayed MALGORZATA: 10/03/2021 [...] Marline Milton documented in this encounter [facility] 10-22-2021 Miscellaneous Notes Okayed MALGORZATA: 10/03/2021 [...] Liz Frank Pss documented in this encounter [facility] 10-08-2021 Miscellaneous Notes Echo scheduled for 10/13/21. Cardio appt 11/03/21. Kandy Brady Ma Patient returned call and went over notes from Dr Soto and Comfort Patterson FUEL CELL REPAIRER with understanding. Patient wrote down instructions, she had already stopped the iron some time ago. Assisted with transfer to receptionist scheduler to get Cardiology consult and ECHO [...] still pending. documented in this encounter [facility] 10-07-2021 Miscellaneous Notes Called and spoke with patient. Scheduled with Dr Montelongo on 10/24/21. Patient left voicemail stating she is experiencing severe pain with her back and hip. Patient states it is hard for her to function. Patient has not been seen in office since 09/16/2020 Recommend follow up with provider documented in this encounter [facility] 10-06-2021 Miscellaneous Notes seen by Dr [...] Downing LPN documented in this encounter [facility] 10-03-2021 History of Present illness Narrative [...] 4:15 PM documented in this encounter [facility] 10-03-2021 History of Present illness Narrative [...] going to sit on the toilet. 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 per TELECOMMUNICATIONS OFFICER outside facility Apr 1997 MORBID OBESITY 08/18/2007 Obstructive sleep apnea Sleep study 2002 Occlusion and stenosis of carotid artery without mention of cerebral infarction 03/09/06 mild stenosis shown on u/s at [facility] u/s repeated 02/02/07 with no change [...] Soto MD documented in this encounter [facility] 09-22-2021 Miscellaneous Notes Addended by: JOSE GORDON on: 09/22/2021 11:10 AM Modules accepted: Orders Patient has been identified by name and date of : Yes Pending Prescriptions Disp Refills GABAPENTIN 300 MG CAPSULE 90 capsule 11 Sig: one in morning, two at bedtime LISSA: No RX INSTRUCTIONS: Patient aware RX will be sent to pharmacy. No need to notify patient. [facility] [phone] Jose Gordon documented in this encounter [facility] 09-22-2021 Miscellaneous Notes Patient has been [...] Monet RN documented in this encounter [facility] 09-01-2021 History of Present illness Narrative Patient presents for B-12 injection. Denies any problems at this time. Patient instructed on any SE of medication, verbalized understanding and agreed to proceed with treatment. Tolerated injection well. Ning Mckeon LPN documented in this encounter [facility] 08-22-2021 Instructions Curtis Nassar MD - 08/22/2021 2:55 PM EDT Assessment / Plan Assessment: 1) Diabetes type 2, sugars going low before lunch after taking 8mg glimepiride in AM. I'll ask her to drop to 4, 2, 1mg then stop all based on if sugars <100. 2) Peripheral neuropathy, hasn't been bothering her as much, is on [id number], 1 in AM, 2 in PM. I [...] Nassar MD documented in this encounter [facility] 08-22-2021 Nurse Note Images from the original note were not included. documented in this encounter [facility] 08-22-2021 History of Present illness Narrative Assessment / Plan Assessment: 1) Diabetes type 2, sugars going low before lunch after taking 8mg glimepiride in AM. I'll ask her to drop to 4, 2, 1mg then stop all based on if sugars <100. 2) Peripheral neuropathy, hasn't been bothering her as much, is on [id number], 1 in AM, 2 in PM. 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 per TELECOMMUNICATIONS OFFICER outside facility Apr 1997 MORBID OBESITY 08/18/2007 Obstructive sleep apnea Sleep study 2003 Occlusion and stenosis of carotid artery without mention of cerebral infarction 03/09/06 mild stenosis shown on u/s at [facility] u/s repeated 02/02/07 with no change [...] Tape [Other] documented in this encounter [facility] 01-05-2019 History of Past i llness [...] this encounter (statuses as of 08/22/2021) [facility] of Past [facility] Narrative* Problem [...] this encounter (statuses as of 09/01/2021) [facility] of [facility] Narrative* Problem [...] this encounter (statuses as of 09/22/2021) [facility] Narrative* Problem [...] of this encounter (statuses as of 10/06/2021) [facility] Narrative* Problem [...] this encounter (statuses as of 10/07/2021) [facility] Narrative* Problem [...] this encounter (statuses as of 10/08/2021) [facility] Narrative* Problem [...] this encounter (statuses as of 10/09/2021) [facility] Narrative* Problem [...] this encounter (statuses as of 10/22/2021) [facility] Narrative* Problem [...] this encounter (statuses as of 10/22/2021) [facility] Narrative* Problem [...] this encounter (statuses as of 10/30/2021) [facility] Narrative* Problem [...] this encounter (statuses as of 11/03/2021) [facility] Narrative* Problem [...] this encounter (statuses as of 11/03/2021) [facility] Narrative* Problem [...] this encounter (statuses as of 12/04/2021) [facility] Narrative* Problem [...] this encounter (statuses as of 12/05/2021) [facility] Narrative* Problem [...] this encounter (statuses as of 12/15/2021) [facility] Narrative* Problem [...] this encounter (statuses as of 12/17/2021) [facility] Narrative* Problem [...] this encounter (statuses as of 01/05/2022) [facility] Narrative* Problem [...] this encounter (statuses as of 01/05/2022) [facility] History [facility] Past illness Narrative* Problem [...] this encounter (statuses as of 01/12/2022) [facility] History of Past illness Narrative* Problem [...] this encounter (statuses as of 01/19/2022) [facility] History of Past illness Narrative* Problem [...] this encounter (statuses as of 01/29/2022) [facility] Past illness Narrative* Problem [...] this encounter (statuses as of 02/04/2022) [facility] Past illness Narrative* Problem [...] this encounter (statuses as of 02/04/2022) [facility] Narrative* Problem [...] this encounter (statuses as of 02/05/2022) [facility] Narrative* Problem [...] this encounter (statuses as of 02/10/2022) [facility] Narrative* Problem [...] this encounter (statuses as of 02/10/2022) [facility] Narrative* Problem [...] this encounter (statuses as of 02/16/2022) [facility]arrative* Problem [...] this encounter (statuses as of 02/27/2022) [facility] Narrative* Problem [...] this encounter (statuses as of 03/02/2022) [facility] Narrative* Problem [...] this encounter (statuses as of 03/10/2022) [facility] Narrative* Problem [...] this encounter (statuses as of 03/11/2022) [facility] Narrative* Problem [...] this encounter (statuses as of 03/12/2022) [facility] Narrative* Problem [...] this encounter (statuses as of 03/19/2022) [facility] Narrative* Problem [...] this encounter (statuses as of 03/23/2022) [facility] Narrative* Problem [...] this encounter (statuses as of 03/25/2022) [facility] Narrative* Problem [...] this encounter (statuses as of 03/26/2022) [facility] Narrative* Problem [...] this encounter (statuses as of 03/27/2022) [facility] Narrative* Problem [...] this encounter (statuses as of 04/06/2022) [facility] Narrative* Problem [...] this encounter (statuses as of 04/10/2022) [facility] Narrative* Problem [...] this encounter (statuses as of 04/27/2022) [facility] Narrative* Problem [...] this encounter (statuses as of 04/28/2022) [facility] Narrative* Problem [...] this encounter (statuses as of 04/29/2022) [facility]arrative* Problem [...] this encounter (statuses as of 05/04/2022) [facility] Narrative* Problem [...] this encounter (statuses as of 05/06/2022) [facility] Narrative* Problem [...] this encounter (statuses as of 05/06/2022) [facility]arrative* Problem [...] this encounter (statuses as of 05/07/2022) [facility]arrative* Problem [...] this encounter (statuses as of 05/22/2022) [facility]arrative* Problem [...] this encounter (statuses as of 06/03/2022) [facility]arrative* Problem [...] this encounter (statuses as of 06/03/2022) [facility]arrative* Problem [...] this encounter (statuses as of 06/05/2022) [facility]ative* Problem [...] this encounter (statuses as of 06/05/2022) [facility]arrative* Problem [...] this encounter (statuses as of 06/11/2022) [facility]arrative* Problem [...] this encounter (statuses as of 06/11/2022) [facility] Narrative* Problem [...] this encounter (statuses as of 06/15/2022) [facility] Narrative* Problem [...] this encounter (statuses as of 06/18/2022) [facility]arrative* Problem [...] this encounter (statuses as of 06/18/2022) [facility] Narrative* Problem [...] this encounter (statuses as of 06/23/2022) [facility] Narrative* Problem [...] this encounter (statuses as of 07/02/2022) [facility]arrative* Problem [...] this encounter (statuses as of 07/07/2022) [facility]arrative* Problem [...] this encounter (statuses as of 08/03/2022) [facility]ative* Problem [...] this encounter (statuses as of 08/04/2022) [facility]ative* Problem [...] this encounter (statuses as of 08/04/2022) [facility]ative* Problem [...] this encounter (statuses as of 08/04/2022) [facility]ative* Problem [...] this encounter (statuses as of 08/08/2022) [facility]arrative* Problem [...] this encounter (statuses as of 08/12/2022) [facility]ative* Problem [...] this encounter (statuses as of 08/19/2022) [facility]* Problem [...] this encounter (statuses as of 08/26/2022) [facility]arrative* Problem [...] this encounter (statuses as of 08/26/2022) [facility]ative* Problem [...] this encounter (statuses as of 09/01/2022) [facility]arrative* Problem [...] this encounter (statuses as of 09/01/2022) [facility]arrative* Problem [...] this encounter (statuses as of 09/03/2022) [facility]arrative* Problem [...] this encounter (statuses as of 09/11/2022) [facility]arrative* Problem [...] this encounter (statuses as of 09/12/2022) [facility]arrative* Problem [...] this encounter (statuses as of 09/14/2022) [facility]arrative* Problem [...] this encounter (statuses as of 09/18/2022) [facility]arrative* Problem [...] this encounter (statuses as of 09/18/2022) [facility]arrative* Problem [...] this encounter (statuses as of 09/23/2022) [facility]arrative* Problem [...] this encounter (statuses as of 09/26/2022) [facility]arrative* Problem [...] this encounter (statuses as of 09/26/2022) [facility]ative* Problem [...] this encounter (statuses as of 09/29/2022) [facility]arrative* Problem [...] this encounter (statuses as of 10/02/2022) [facility]arrative* Problem [...] this encounter (statuses as of 10/12/2022) [facility]arrative* Problem [...] this encounter (statuses as of 10/12/2022) [facility]ative* Problem [...] this encounter (statuses as of 10/28/2022) [facility]* Problem [...] this encounter (statuses as of 11/06/2022) [facility]* Problem [...] this encounter (statuses as of 11/03/2022) [facility]ative* Problem [...] this encounter (statuses as of 11/04/2022) [facility]ative* Problem [...] this encounter (statuses as of 12/05/2022) [facility]ative* Problem [...] this encounter (statuses as of 12/25/2022) [facility]ative* Problem [...] this encounter (statuses as of 12/30/2022) [facility]arrative* Problem [...] this encounter (statuses as of 01/04/2023) [facility]ative* Problem [...] this encounter (statuses as of 01/09/2023) [facility]arrative* Problem [...] this encounter (statuses as of 01/11/2023) [facility]ative* Problem [...] this encounter (statuses as of 01/14/2023) [facility]ative* Problem [...] this encounter (statuses as of 01/27/2023) [facility]* Problem [...] this encounter (statuses as of 01/29/2023) [facility]* Problem [...] this encounter (statuses as of 01/29/2023) [facility]ative* Problem [...] this encounter (statuses as of 02/02/2023) [facility]arrative* Problem [...] this encounter (statuses as of 02/03/2023) [facility]ative* Problem [...] this encounter (statuses as of 02/04/2023) [facility]ative* Problem [...] this encounter (statuses as of 02/20/2023) [facility]ative* Problem [...] this encounter (statuses as of 03/06/2023) [facility]* Problem [...] this encounter (statuses as of 03/18/2023) [facility]* Problem [...] this encounter (statuses as of 03/30/2023) [facility]* Problem [...] this encounter (statuses as of 04/03/2023) [facility]* Problem [...] this encounter (statuses as of 05/04/2023) [facility]ative* Problem [...] this encounter (statuses as of 05/14/2023) [facility]* Problem [...] this encounter (statuses as of 06/27/2023) [facility]* Problem [...] this encounter (statuses as of 07/07/2023) [facility]* Problem [...] this encounter (statuses as of 07/07/2023) [facility]* Problem [...] this encounter (statuses as of 07/09/2023) [facility]* Problem [...] this encounter (statuses as of 07/22/2023) [facility]* Problem [...] this encounter (statuses as of 07/22/2023) [facility]* Problem [...] this encounter (statuses as of 08/02/2023) [facility]* Problem [...] this encounter (statuses as of 08/11/2023) [facility]* Problem [...] this encounter (statuses as of 08/12/2023) [facility]* Problem [...] this encounter (statuses as of 08/13/2023) [facility]* Problem [...] this encounter (statuses as of 08/13/2023) [facility]* Problem [...] this encounter (statuses as of 08/16/2023) [facility]* Problem [...] this encounter (statuses as of 08/16/2023) [facility]* Problem [...] this encounter (statuses as of 09/06/2023) [facility]arrative* Problem [...] this encounter (statuses as of 09/17/2023) [facility] Diagnosis 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), 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, not stated as uncontrolled Radiculopathy of thoracic region Thoracic or lumbosacral neuritis or radiculitis, unspecified [facility] Diagnosis Pernicious anemia- Primary [facility] Diagnosis Radiculopathy of thoracic region Thoracic or lumbosacral neuritis or radiculitis, unspecified [facility] Shortness of breath on exertion- Primary Shortness of breath Irregular heart beat Cardiac dysrhythmia, unspecified Fatigue, unspecified type Elevated ferritin Other abnormal blood chemistry [facility] Diagnosis Irregular heart beat- Primary Cardiac dysrhythmia, unspecified Shortness of breath on exertion Shortness of breath Fatigue, unspecified type Skin tear of left forearm without complication, initial encounter Lightheadedness Dizziness and giddiness [facility] Diagnosis 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 [facility] Diagnosis Chronic left SI joint pain- Primary Disorders of sacrum Sacroiliac joint pain Disorders of sacrum SI joint arthritis Sacroiliitis, not elsewhere classified Chronic left SI joint pain Disorders of sacrum Sacroiliac joint pain Disorders of sacrum SI joint arthritis Sacroiliitis, not elsewhere classified [facility] Diagnosis Dyspnea on exertion- Primary Other dyspnea and respiratory abnormality Chronic left SI joint pain Disorders of sacrum Sacroiliac joint pain Disorders of sacrum SI joint arthritis Sacroiliitis, not elsewhere classified [facility] Diagnosis Pernicious anemia- Primary Chronic left SI joint pain Disorders of sacrum Sacroiliac joint pain Disorders of sacrum SI joint arthritis Sacroiliitis, not elsewhere classified [facility] Diagnosis Acute UTI- Primary Urinary tract infection, site not specified Urinary frequency Glucosuria Glycosuria [facility] Diagnosis Elevated ferritin- Primary Other abnormal blood chemistry [facility] Diagnosis Pernicious anemia- Primary [facility] Diagnosis Chronic left SI joint pain- Primary Disorders of sacrum Sacroiliac joint pain Disorders of sacrum SI joint arthritis Sacroiliitis, not elsewhere classified Chronic SI joint pain Disorders of sacrum [facility] Diagnosis Fatigue, unspecified type- Primary Iron deficiency Iron deficiency anemia, unspecified Chronic left SI joint pain Disorders of sacrum Sacroiliac joint pain Disorders of sacrum SI joint arthritis Sacroiliitis, not elsewhere classified [facility] Diagnosis B12 deficiency- Primary Other B-complex deficiencies Chronic left SI joint pain Disorders of sacrum Sacroiliac joint pain Disorders of sacrum SI joint arthritis Sacroiliitis, not elsewhere classified [facility] Diagnosis Iron deficiency- Primary Iron deficiency anemia, unspecified [facility] Diagnosis Chronic left SI joint pain- Primary Disorders of sacrum Sacroiliac joint pain Disorders of sacrum SI joint arthritis Sacroiliitis, not elsewhere classified Chronic left SI joint pain Disorders of sacrum Sacroiliac joint pain Disorders of sacrum SI joint arthritis Sacroiliitis, not elsewhere classified [facility] Diagnosis Need for influenza vaccination- Primary Need for prophylactic vaccination and inoculation against influenza Pernicious anemia Chronic left SI joint pain Disorders of sacrum Sacroiliac joint pain Disorders of sacrum SI joint arthritis Sacroiliitis, not elsewhere classified [facility] noteNo assessment information availableWFort Hamilton [facility] Work Phone: Evaluation note* Diagnosis Pernicious anemia- Primary Need for vaccination Need for prophylactic vaccination and inoculation against unspecified single disease [facility] Diagnosis Chronic left SI joint pain- Primary Disorders of sacrum [facility] Diagnosis Chronic left SI joint pain- Primary Disorders of sacrum Sacroiliac joint pain Disorders of sacrum Chronic left SI joint pain Disorders of sacrum Sacroiliac joint pain Disorders of sacrum [facility] Diagnosis 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Pruritus Unspecified pruritic disorder Candidal vulvitis Candidiasis of vulva and vagina Lichen sclerosus 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 Disorders of sacrum Sacroiliac joint pain Disorders of sacrum [facility] Diagnosis Radiculopathy of thoracic region Thoracic or lumbosacral neuritis or radiculitis, unspecified Chronic left SI joint pain Disorders of sacrum Sacroiliac joint pain Disorders of sacrum [facility] Diagnosis Fatigue, unspecified type- Primary Primary hypertension Unspecified essential hypertension Hypoalbuminemia Other disorders of plasma protein metabolism Dietary iron deficiency without anemia Other nutritional deficiency Elevated ferritin Other abnormal blood chemistry Class 3 severe obesity due to excess calories with body mass index (BMI) of 40.0 to 44.9 in adult, unspecified whether serious comorbidity present (HCC) [facility] Diagnosis Iron deficiency Iron deficiency anemia, unspecified [facility] Diagnosis Pernicious anemia- Primary [facility] Diagnosis FIELD (dyspnea on exertion)- Primary Other dyspnea and respiratory abnormality Dietary iron deficiency without anemia Other nutritional deficiency Grade I diastolic dysfunction Chronic cough Cough Renal calculus, left Calculus of kidney Primary hypertension Unspecified essential hypertension Hypoalbuminemia Other disorders of plasma protein metabolism DM (diabetes mellitus), type 2 with neurological complications ([facility]) Type II or unspecified type diabetes [...] of kidney [facility] Diagnosis FIELD (dyspnea on exertion) Other dyspnea and respiratory abnormality Chronic cough Cough Renal calculus, left Calculus of kidney [facility] Diagnosis FIELD (dyspnea on exertion) Other dyspnea and respiratory abnormality Chronic cough Cough Renal calculus, left Calculus of kidney [facility] Diagnosis Lumbosacral facet joint syndrome- Primary Other symptoms referable to back Spondylolisthesis of lumbar region Acquired spondylolisthesis Spinal stenosis of lumbar region, unspecified whether neurogenic claudication present Renal calculus, left Calculus of kidney [facility] Diagnosis Pernicious anemia- Primary Renal calculus, left Calculus of kidney [facility] Diagnosis Crushing injury of right middle finger, initial encounter- Primary Open fracture of tuft of distal phalanx of finger Open fracture of distal phalanx or phalanges of hand Nausea Nausea alone Renal calculus, left Calculus of kidney [facility] Diagnosis Finger injury, right, initial encounter- Primary Renal calculus, left Calculus of kidney [facility] Diagnosis Spinal stenosis of lumbar [...] region Acquired spondylolisthesis [facility]* Diagnosis Kidney stone- Primary Calculus of kidney Spinal stenosis of lumbar region, unspecified whether neurogenic claudication present Lumbar spondylosis Lumbosacral spondylosis without myelopathy Radiculopathy, lumbar region Thoracic or lumbosacral neuritis or radiculitis, unspecified Spondylolisthesis of lumbar region Acquired spondylolisthesis [facility] Diagnosis Crushing injury of right middle finger, sequela- Primary Renal calculus, left Calculus of kidney Spinal stenosis of lumbar region, unspecified whether neurogenic claudication present Lumbar spondylosis Lumbosacral spondylosis without myelopathy Radiculopathy, lumbar region Thoracic or lumbosacral neuritis or radiculitis, unspecified Spondylolisthesis of lumbar region Acquired spondylolisthesis [facility]* Diagnosis Dysuria- Primary Spinal stenosis of lumbar region, unspecified whether neurogenic claudication present Lumbar spondylosis Lumbosacral spondylosis without myelopathy Radiculopathy, lumbar region Thoracic or lumbosacral neuritis or radiculitis, unspecified Spondylolisthesis of lumbar region Acquired spondylolisthesis [facility]* Diagnosis Pernicious anemia- Primary Spinal stenosis of lumbar region, unspecified whether neurogenic claudication present Lumbar spondylosis Lumbosacral spondylosis without myelopathy Radiculopathy, lumbar region Thoracic or lumbosacral neuritis or radiculitis, unspecified Spondylolisthesis of lumbar region Acquired spondylolisthesis documented in this encounter [facility]* Diagnosis Spondylolisthesis of lumbar region Acquired spondylolisthesis Open compression fracture of L1 lumbar vertebra with routine healing, subsequent encounter Anxiety disorder, unspecified type [facility] Diagnosis Spinal stenosis of lumbar region, unspecified whether neurogenic claudication present- Primary Lumbar spondylosis Lumbosacral spondylosis without myelopathy Radiculopathy, lumbar region Thoracic or lumbosacral neuritis or radiculitis, unspecified Spondylolisthesis of lumbar region Acquired spondylolisthesis [facility] Diagnosis Pernicious anemia- Primary [facility] Diagnosis DM (diabetes mellitus), 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, not stated as uncontrolled [facility] Diagnosis Spinal stenosis of lumbar region, unspecified whether neurogenic claudication present Lumbar spondylosis Lumbosacral spondylosis without myelopathy Radiculopathy, lumbar region Thoracic or lumbosacral neuritis or radiculitis, unspecified Spondylolisthesis of lumbar region Acquired spondylolisthesis [facility] Diagnosis Irregular heart rhythm- Primary [...] Other fatigue [facility] Diagnosis Pernicious anemia- Primary [facility] Diagnosis Spinal stenosis of lumbar region, unspecified whether neurogenic claudication present- Primary Lumbar spondylosis Lumbosacral spondylosis without myelopathy Spondylolisthesis of lumbar region Acquired spondylolisthesis Radiculopathy, lumbar region Thoracic or lumbosacral neuritis or radiculitis, unspecified [facility] Diagnosis Spinal stenosis of lumbar region, unspecified whether neurogenic claudication present- Primary Lumbar spondylosis Lumbosacral spondylosis without myelopathy Spondylolisthesis of lumbar region Acquired spondylolisthesis Radiculopathy, lumbar region Thoracic or lumbosacral neuritis or radiculitis, unspecified [facility] Diagnosis Spinal stenosis of lumbar region, unspecified whether neurogenic claudication present- Primary Lumbar spondylosis Lumbosacral spondylosis without myelopathy Spondylolisthesis of lumbar region Acquired spondylolisthesis Radiculopathy, lumbar region Thoracic or lumbosacral neuritis or radiculitis, unspecified documented in this encounter [facility]* Diagnosis Spondylolisthesis of lumbar region- Primary Acquired spondylolisthesis Chronic SI joint pain Disorders of sacrum Spinal stenosis of lumbar region, unspecified whether neurogenic claudication present Pain in left hip Pain in joint, pelvic region and thigh Radiculopathy, lumbar region Thoracic or lumbosacral neuritis or radiculitis, unspecified documented in this encounter [facility]* Diagnosis Spondylolisthesis of lumbar region- Primary Acquired spondylolisthesis Spinal stenosis of lumbar region, unspecified whether neurogenic claudication present Radiculopathy, lumbar region Thoracic or lumbosacral neuritis or radiculitis, unspecified Spondylolisthesis of lumbar region Acquired spondylolisthesis Spinal stenosis of lumbar region, unspecified whether neurogenic claudication present Radiculopathy, lumbar region Thoracic or lumbosacral neuritis or radiculitis, unspecified documented in this encounter [facility]* Diagnosis Spinal stenosis of [...] or radiculitis, unspecified documented in this encounter [facility]* Diagnosis Radiculopathy of thoracic region Thoracic or lumbosacral neuritis or radiculitis, unspecified Spondylolisthesis of lumbar region Acquired spondylolisthesis Spinal stenosis of lumbar region, unspecified whether neurogenic claudication present Radiculopathy, lumbar region Thoracic or lumbosacral neuritis or radiculitis, unspecified documented in this encounter [facility]* Diagnosis Pernicious anemia- Primary Spondylolisthesis of lumbar region Acquired spondylolisthesis Spinal stenosis of lumbar region, unspecified whether neurogenic claudication present Radiculopathy, lumbar region Thoracic or lumbosacral neuritis or radiculitis, unspecified documented in this encounter [facility]* Diagnosis Spinal stenosis of lumbar region, unspecified whether neurogenic claudication present- Primary Lumbar spondylosis Lumbosacral spondylosis without myelopathy Spondylolisthesis of lumbar region Acquired spondylolisthesis Radiculopathy, lumbar region Thoracic or lumbosacral neuritis or radiculitis, unspecified [facility] Diagnosis Current moderate episode of major depressive disorder, unspecified whether recurrent (HCC)- Primary Anxiety disorder, unspecified type Radiculopathy, lumbar region Thoracic or lumbosacral neuritis or radiculitis, unspecified Chronic SI joint pain Disorders of sacrum Single subsegmental pulmonary embolism without acute cor pulmonale (HCC) Type 2 diabetes mellitus with peripheral neuropathy (HCC) documented in this encounter [facility]* Diagnosis Spinal stenosis of lumbar region, unspecified whether neurogenic claudication present- Primary Lumbar spondylosis Lumbosacral spondylosis without myelopathy Spondylolisthesis of lumbar region Acquired spondylolisthesis Radiculopathy, lumbar region Thoracic or lumbosacral neuritis or radiculitis, unspecified documented in this encounter [facility]* Diagnosis Pernicious anemia- Primary documented in this encounter [facility]* Diagnosis 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 documented in this encounter [facility]* Diagnosis DM (diabetes mellitus), 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 Type II or unspecified type diabetes mellitus with neurological manifestations, not stated as uncontrolled Type 2 diabetes mellitus with peripheral neuropathy (HCC) documented in this encounter [facility]* Diagnosis Pernicious anemia- Primary documented in this encounter [facility]* Diagnosis 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 documented in this encounter [facility]* Diagnosis FIELD (dyspnea on exertion)- Primary Other dyspnea and respiratory abnormality Irregular heart rhythm Cardiac dysrhythmia, unspecified Premature atrial complexes Supraventricular premature beats PAC (premature atrial contraction) Supraventricular premature beats Mixed hyperlipidemia Carotid artery stenosis without cerebral infarction, bilateral Type 2 diabetes mellitus with peripheral neuropathy (HCC) Atypical chest pain Other chest pain [facility] Diagnosis Irregular heart rhythm Cardiac dysrhythmia, unspecified FIELD (dyspnea on exertion) Other dyspnea and respiratory abnormality Premature atrial complexes Supraventricular premature beats PAC (premature atrial contraction) Supraventricular premature beats Mixed hyperlipidemia Carotid artery stenosis without cerebral infarction, bilateral Type 2 diabetes mellitus with peripheral neuropathy (HCC) Atypical chest pain Other chest pain [facility] Diagnosis Pernicious anemia- Primary [facility] Diagnosis Hypotension due to drugs- Primary Other iatrogenic hypotension Chronic fatigue Other malaise and fatigue Memory deficit Memory loss Obesity, Class II, BMI 35-39.9 Obesity, unspecified Need for influenza vaccination Need for prophylactic vaccination and inoculation against influenza Encounter for therapeutic drug monitoring Type 2 diabetes mellitus with peripheral neuropathy (HCC) Mixed hyperlipidemia [facility]* Diagnosis Pernicious anemia- Primary [facility]* Diagnosis 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[facility] Diagnosis Pernicious anemia- Primary [facility]* Diagnosis 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 [facility]* Diagnosis Kidney stone Calculus of kidney [facility] Diagnosis Memory difficulties- Primary Memory loss Vitamin D deficiency Unspecified vitamin D deficiency Chronic cough Cough Type 2 diabetes mellitus with peripheral neuropathy (HCC) Breast cancer screening by mammogram Encounter for immunization Need for other specified prophylactic vaccination against single bacterial disease [facility]* Diagnosis Dyspnea on exertion- Primary Other dyspnea and respiratory abnormality Premature atrial complexes Supraventricular premature beats Type 2 diabetes mellitus with peripheral neuropathy (HCC) Multiple subsegmental pulmonary emboli without acute cor pulmonale (HCC) ASIM (obstructive sleep apnea) Obstructive sleep apnea (adult) (pediatric) documented [facility]* Diagnosis Abnormal mammogram- Primary Abnormal mammogram, unspecified [facility]* Diagnosis 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, without long-term current use of insulin (HCC)- Primary Class 1 obesity due to excess calories with serious comorbidity and body mass index (BMI) of 34.0 to 34.9 in adult [facility]* Diagnosis Abnormal mammogram Abnormal mammogram, unspecified [facility] Diagnosis Abnormal mammogram Abnormal mammogram, unspecified documented in this encounter [facility]* Diagnosis Pernicious anemia- Primary [facility]* Diagnosis Mild cognitive impairment- Primary Mild cognitive impairment, so stated ASIM (obstructive sleep apnea) Obstructive sleep apnea (adult) (pediatric) documented in this encounter [facility]* Diagnosis Seborrheic keratosis- Primary Other seborrheic keratosis 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 [facility]* Diagnosis Current moderate episode of [...] therapeutic drug monitoring documented in this encounter [facility]* Diagnosis Pernicious anemia- Primary [facility]* Diagnosis 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, without long-term current use of insulin (HCC)- Primary [facility]* Diagnosis Pernicious anemia- Primary [facility]* Diagnosis 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, without long-term current use of insulin (HCC)- Primary Class 1 obesity due to excess calories with serious comorbidity and body mass index (BMI) of 34.0 to 34.9 in adult [facility]* Diagnosis Uncontrolled type 2 [...] cerebral infarction, bilateral [facility]* Diagnosis Cognitive impairment- Primary Unspecified [...] use of medication [facility]* Diagnosis Type 2 diabetes mellitus with peripheral neuropathy (HCC) [facility]* Diagnosis Acute pain of right knee- Primary [facility]* Diagnosis Acute pain of right knee [facility] Diagnosis UTI symptoms- Primary Other symptoms involving urinary system [facility] Diagnosis Vulvovaginal pain- Primary [...] Calculus of kidney documented in this encounter [facility]* Diagnosis Vulvovaginal pain- Primary [...] 38.0 to 38.9 in adult ([facility]) Crushing injury of right middle finger, initial encounter documented in this encounter [facility]* Diagnosis Vulvovaginal pain- Primary [...] 38.0 to 38.9 in adult ([facility]) Shortness of breath on exertion Shortness of breath documented in this encounter [facility]* Diagnosis Vulvovaginal pain- Primary [...] or radiculitis, unspecified documented in this encounter [facility]* Diagnosis Vulvovaginal pain- Primary [...] 38.0 to 38.9 in adult ([facility]) Lumbar spondylosis- Primary Lumbosacral spondylosis without myelopathy Radiculopathy, lumbar region Thoracic or lumbosacral neuritis or radiculitis, unspecified Lumbar spondylosis Lumbosacral spondylosis without myelopathy Spondylolisthesis of lumbar region Acquired spondylolisthesis Radiculopathy, lumbar region Thoracic or lumbosacral neuritis or radiculitis, unspecified [facility] Diagnosis Vulvovaginal pain- Primary [...] emboli without acute cor pulmonale ([facility]) Atypical chest pain Other chest pain Hyperlipidemia, unspecified hyperlipidemia type DM (diabetes mellitus), type 2 with neurological complications ([facility]) Type II or unspecified type diabetes [...] 38.0 to 38.9 in adult ([facility]) Type 2 diabetes mellitus with peripheral neuropathy ([facility])- Primary DM (diabetes mellitus), type 2 with neurological complications ([facility]) Type II or unspecified type diabetes mellitus with neurological manifestations, not stated as uncontrolled Aortic valve sclerosis Aortic valve disorders Subdural hemorrhage ([facility])- Primary Subdural hemorrhage SAH (subarachnoid hemorrhage) ([facility]) Subarachnoid hemorrhage Closed fracture of left femur, unspecified fracture morphology, unspecified portion of femur, initial encounter ([facility]) Acute blood loss anemia Acute posthemorrhagic anemia Midline shift of brain due to hematoma ([facility]) At risk for seizures Other specified [...] long-term current use of insulin ([facility]) Hyperkalemia Hyperpotassemia [facility] Diagnosis Vulvovaginal pain- Primary Unspecified [...] emboli without acute cor pulmonale ([facility]) Atypical chest pain Other chest pain Hyperlipidemia, unspecified hyperlipidemia type DM (diabetes mellitus), type 2 with neurological complications ([facility]) Type II or unspecified type diabetes [...] 38.0 to 38.9 in adult ([facility]) Pruritic condition- Primary Unspecified pruritic disorder Anemia, unspecified type Type 2 diabetes mellitus with peripheral neuropathy ([facility]) Vitamin D deficiency Unspecified vitamin D deficiency Vitamin B12 deficiency Other B-complex deficiencies Pedal edema Edema Dementia, unspecified dementia severity, unspecified dementia type, unspecified whether behavioral, psychotic, or mood disturbance or anxiety ([facility]) Subdural hemorrhage ([facility])- Primary Subdural hemorrhage Subdural hemorrhage (HCC) Subdural hemorrhage SAH (subarachnoid hemorrhage) ([facility]) Subarachnoid hemorrhage Closed fracture of left [...] counseling Longstanding persistent atrial fibrillation ([facility]) [facility] Diagnosis Vulvovaginal pain- Primary Unspecified [...] type 2 with neurological complications ([facility]) Type II or unspecified type diabetes [...] counseling Longstanding persistent atrial fibrillation ([facility]) Class 1 obesity due to excess calories with serious comorbidity and body mass index (BMI) of 34.0 to 34.9 in adult 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, without long-term current use of insulin ([facility]) [facility] Diagnosis Vulvovaginal pain- Primary Unspecified [...] insulin (HCC) [facility] Diagnosis Vulvovaginal pain- Primary Unspecified [...] Unspecified intracranial hemorrhage [facility] Diagnosis Nontraumatic intracranial hemorrhage, unspecified (HCC) documented in this encounter [facility] note* Diagnosis Vulvovaginal pain- Primary Unspecified [...] 38.0 to 38.9 in adult ([facility]) Subdural hemorrhage (HCC)- Primary Subdural hemorrhage Subdural hemorrhage (HCC) Subdural hemorrhage SAH (subarachnoid hemorrhage) (HCC) Subarachnoid hemorrhage Closed fracture of left femur, unspecified fracture morphology, unspecified portion of femur, initial encounter ([facility]) Acute blood loss anemia Acute posthemorrhagic [...] subsequent encounter- Primary [facility]* Diagnosis Nontraumatic intracranial hemorrhage, unspecified (HCC)- Primary Nontraumatic intracranial hemorrhage, unspecified (HCC) documented in this encounter [facility] note* Diagnosis Nontraumatic intracranial hemorrhage, unspecified (HCC)- Primary [facility] Additional Instructions The Dermabond/skin adhesive will fall off on its own in approximately 10 days. You can continue to shower and wash your hair as normal. Please return to the ER should you have any further [facility] Phone: Hospital Discharge instructions Additional Instructions Please follow-up with urology for repeat evaluation and return to the ER if your pain is not controlled with outpatient therapy or you develop a fever over 100.4[facility] Work Phone: Reason for referral (narrative)* Outpatient Procedure (Routine) - Waiting for Online Response Specialty Diagnoses / Procedures Referred By Liliana silva Referred To [facility] Diagnoses Shortness of breath on exertion Irregular heart beat Fatigue, unspecified type Procedures ECHO ECHO TTHRC R-T 2D W/WOM-MODE COMPL SPEC&COLR D Comfort Patterson APRN.CHEMICAL ENGINEERING TECHNICIAN [address] [place] [address] [facility] [place] [address] [place] [address] Referral ID Status Reason Start Date Expiration Date Visits Requested Visits Authorized [id number] Waiting for Online Response Auto-Generat ed Referral 10/28/2021 10/07/2022 1 1 * Consult, Test, Treat (Routine) - Pending Review Specialty Diagnoses / Procedures Referred By Liliana silva Referred To Contact Cardiology Diagnoses Shortness of breath on exertion Irregular heart beat Fatigue, unspecified type Procedures CONSULT TO CARDIOLOGY OFFICE/OUTPATIENT NEW HIGH MDM 60-74 MINUTES Comfort Patterson APRN.CHEMICAL ENGINEERING TECHNICIAN [address] [place] [address] Referral ID Status Reason Start Date Expiration Date Visits Requested Visits Authorized [id number] Pending Review PCP Requested Referral 10/28/2021 10/07/2022 1 1 [facility] for referral (narrative)* Outpatient Procedure (Routine) - Pending Review Specialty Diagnoses / Procedures Referred By Contac t Referred To [facility] Diagnoses Irregular heart beat Procedures ECG COMPLETE ECG ROUTINE ECG W/LEAST 12 LDS W/I&R Iban Soto MD [address] [place] [address] [facility] [address] [address] Referral ID Status Reason Start Date Expiration Date Visits Requested Visits Authorized [id number] Pending Review Auto-Generat ed Referral 10/03/2021 10/03/2022 1 1 [facility] for referral (narrative)* Outpatient Procedure (Routine) - Closed Specialty Diagnoses / Procedures Referred By Contac t Referred To Contact [facility] [place] Diagnoses Dyspnea on exertion Procedures ECG COMPLETE ECG ROUTINE ECG W/LEAST 12 LDS W/I&R Gamaliel Alegre MD [address] [place] [address] [place] [id number] Referral ID Status Reason Start Date Expiration Date V isits Requested Visits Authorized [id number] Closed Auto-Generate d Referral 11/02/2021 11/02/2022 1 1 [facility] for referral (narrative)* Outpatient Procedure (Routine) - Pending Review Specialty Diagnoses / Procedures Referred By Contac t Referred To Contact [facility] Diagnoses FIELD (dyspnea on exertion) Chronic cough Procedures LUNG VOLUMES Guillaume Dominguez MD [address] [place] [address] [facility] [place] [facility] [place] [address] Referral ID Status Reason Start Date Expiration Date Visits Requested Visits Authorized [id number] Pending Review Auto-Generat ed Referral 2 05/27/2023 1 1 * Outpatient Procedure (Routine) - Authorized Specialty Diagnoses / Procedures Referred By Contac t Referred To Contact [facility] Diagnoses FIELD (dyspnea on exertion) Chronic cough Procedures SPIROMETRY WITH DILATOR IF OBSTRUCTED BRNCDILAT RSPSE SPMTRY PRE&POST-BRNCDILAT ADMN Guillaume Dominguez MD [address] [place] [address] [facility] [place] [address] [id number] Referral ID Status Reason Start Date Expiration Date Visits Requested Visits Authorized [id number] Authorized Auto-Generat ed Referral 2 05/27/2023 1 1 * Outpatient Procedure (Routine) - Pending Review Specialty Diagnoses / Procedures Referred By Contac t Referred To Contact [facility] Diagnoses Irregular heart rhythm Procedures ECG COMPLETE ECG ROUTINE ECG W/LEAST 12 LDS W/I&R Guillaume Dominguez MD [address] [place] [address] [facility] [address] [address] Referral ID Status Reason Start Date Expiration Date Visits Requested Visits Authorized [id number] Pending Review Auto-Generat ed Referral 2 04/27/2023 1 1 [facility] Diagnostic Procedure Only (Routine) - Pending Review Specialty Diagnoses / Procedures Referred By Contac t Referred To Contact XR IMAGING Diagnoses Finger injury, right, initial encounter Procedures XR DIGIT GENERAL 3V FRONTAL/LAT/OBL RIGHT RADEX FINGR MINIMUM 2 VIEWS Eren Robbins MD [address] [place] [address] Xr Imaging Referral ID Status Reason Start Date Expiration Date Visits Requested Visits Authorized [id number] Pending Review Auto-Generat ed Referral 2 06/20/2023 1 1 [facility] for referral (narrative)* Diagnostic Procedure Only (Routine) - Pending Review Specialty Diagnoses / Procedures Referred By Contac t Referred To Contact XR IMAGING Diagnoses Kidney stone Procedures XR ABDOMEN 1V SUPINE RADIOLOGIC EXAM ABDOMEN 1 VIEW Maykel Patel Jr., MD [facility] [place] [address] Xr Imaging Referral ID Status Reason Start Date Expiration Date Visits Requested Visits Authorized [id number] Pending Review Auto-Generat ed Referral 09/09/2022 07/11/2023 1 1 [facility] for referral (narrative)* Outpatient Procedure (Routine) [...] COMPL SPEC&COLR D Maykel Whitfield DO [address] [address] [facility] [place] [address] [place] [address] Referral ID Status Reason Start Date Expiration Date Visits Requested Visits Authorized [id number] Pending Review Auto-Generat ed Referral 01/11/2023 01/11/2024 [...] MULTIPLE STUDIES Maykel Whitfield, DO [address] [address] [facility] [address] [place] [address] Referral ID Status Reason Start Date Expiration Date Visits Requested Visits Authorized [id number] Pending Review Auto-Generat ed Referral 01/11/2023 02/10/2024 1 1 [facility] for referral (narrative)* Diagnostic Procedure Only [...] MULTIPLE STUDIES Maykel Whitfield, DO [address] [address] [facility] [address] [place] [address] Referral ID Status Reason Start Date Expiration Date V isits Requested Visits Authorized [id number] Closed Auto-Generate d Referral 01/12/2023 04/12/2023 1 1 [facility] for referral (narrative)* Diagnostic Procedure Only (Routine) - Closed Specialty Diagnoses / Procedures Referred By Contac t Referred To Contact XR IMAGING Diagnoses Kidney stone Procedures XR ABDOMEN 1V SUPINE RADIOLOGIC EXAM ABDOMEN 1 VIEW Maykel Patel Jr., MD [address] [place] [address] Xr Imaging [place] [address] Referral ID Status Reason Start Date Expiration Date V isits Requested Visits Authorized [id number] Closed Auto-Generate d Referral 09/23/2022 10/22/2023 1 1 [facility] for referral (narrative)* Diagnostic Procedure Only (Routine) - Authorized Specialty Diagnoses / Procedures [facility] Diagnoses Abnormal mammogram Procedures US BREAST LTD RIGHT US BREAST UNI REAL TIME WITH IMAGE LIMITED Josefa Caputo APRN.CNP [address] [place] [address] [facility] [address] [place] [address] Referral ID Status Reason Start Date Expiration Date Visits Requested Visits Authorized [id number] Authorized Auto-Generat ed Referral 07/07/2023 08/05/2024 1 1 * Diagnostic Procedure Only (Routine) - Authorized Specialty Diagnoses / Procedures [facility] Referred To Contact BR [facility] Diagnoses Abnormal mammogram Procedures ARTIS DIAGNOSTIC RIGHT DIAGNOSTIC MAMMOGRAPHY COMPUTER-AIDED DETCJ UNI Josefa Caputo APRN.CNP [address] [place] [address] [facility] [address] [place] [address] Referral ID Status Reason Start Date Expiration Date Visits Requested Visits Authorized [id number] Authorized Auto-Generat ed Referral 07/07/2023 08/05/2024 1 1 [facility] for referral (narrative)* Outpatient Procedure (Routine) - Authorized Specialty Diagnoses / Procedures [facility] Diagnoses Carotid stenosis, right Procedures US CAROTID ARTERIES POLO VAS LAB DUPLEX SCAN EXTRACRANIAL ART COMPL BI STUDY Josefa Caputo APRN.YARDING SUPERVISOR [address] [place] [address] [facility] [place] [address] [place] [address] Referral ID Status Reason Start Date Expiration Date Visits Requested Visits Authorized [id number] Authorized Auto-Generat ed Referral 08/13/2023 08/12/2024 1 1 * Medication Prior Authorization - Authorized Specialty Diagnoses / Procedures Referred By Contac t Referred To Contact Diagnoses Anxiety disorder, unspecified type Radiculopathy, lumbar region Chronic SI joint pain Josefa Caputo APRN.CNP [address] [place] [address] Referral ID Status Reason Start Date Expiration Date V isits Requested Visits Authorized [id number] Authorized 05/31/2023 05/30/2024 1 1 [facility] for referral (narrative)* Diagnostic Procedure Only (Routine) - New Request Specialty Diagnoses / Procedures Referred By Contac t Referred To Contact XR IMAGING Diagnoses Acute pain of right knee Procedures XR KNEE LIMITED 2V AP/LAT RIGHT RADIOLOGIC EXAMINATION KNEE 1/2 VIEWS Josefa Caputo APRN.YARDING SUPERVISOR [address] [place] [id number] [place] [address] Referral ID Status Reason Start Date Expiration Date Visits Requested Visits Authorized [id number] New Request Auto-Generat ed Referral 12/24/2023 01/22/2025 1 1 [facility] for referral (narrative)* Diagnostic Procedure Only (Routine) - Closed Specialty Diagnoses / Procedures Referred By Contac t Referred To Contact XR IMAGING Diagnoses Renal calculus, left Procedures XR ABDOMEN 1V SUPINE RADIOLOGIC EXAM ABDOMEN 1 VIEW Maykel Patel Jr., MD [address] [place] [address] [place] [address] Referral ID Status Reason Start Date Expiration Date V isits Requested Visits Authorized [id number] Closed Auto-Generate d Referral 04/07/2022 05/07/2023 1 1 [facility] for referral (narrative)* Diagnostic Procedure Only (Urgent) - Closed Specialty Diagnoses / Procedures Referred By Contac t Referred To Contact XR IMAGING Diagnoses Crushing injury of right middle finger, initial encounter Procedures XR DIGIT GENERAL 3V FRONTAL/LAT/OBL RIGHT RADEX FINGR MINIMUM 2 VIEWS Janae Sandoval APRN.YARDING SUPERVISOR [address] [place] [address] [place] [address] Referral ID Status Reason Start Date Expiration Date V isits Requested Visits Authorized [id number] Closed Auto-Generate d Referral 05/06/2022 06/05/2023 1 1 [facility] for referral (narrative)No reason for referral [facility]: Reason for visit Narrative* [...] MULTIPLE STUDIES Maykel Whitfield DO [address] [address] Molecular [facility] [address] [place] [address] Referral ID Status Reason Start Date Expiration Date V isits Requested Visits Authorized [id number] Closed Auto-Generate d Referral 01/12/2023 04/12/2023 1 1 [facility] for visit Narrative* Diagnostic Procedure Only (Routine) - Closed Specialty Diagnoses / Procedures Referred By Contac t Referred To Contact XR IMAGING Diagnoses Kidney stone Procedures XR ABDOMEN 1V SUPINE RADIOLOGIC EXAM ABDOMEN 1 VIEW Maykel Patel Jr., MD [address] [place] [address] [place] [address] Referral ID Status Reason Start Date Expiration Date V isits Requested Visits Authorized [id number] Closed Auto-Generate d Referral 09/23/2022 10/22/2023 1 1 [facility] for visit Narrative* Diagnostic Procedure Only (Routine) - Closed Specialty Diagnoses / Procedures Referred By Contac t Referred To Contact BR IMAGING Diagnoses Abnormal mammogram Procedures ARTIS DIAGNOSTIC RIGHT DIAGNOSTIC MAMMOGRAPHY COMPUTER-AIDED DETCJ UNI Josefa Caputo APRN.YARDING SUPERVISOR [address] [place] [address] [facility] [address] [place] [address] Referral ID Status Reason Start Date Expiration Date V isits Requested Visits Authorized [id number] Closed Auto-Generate d Referral 07/07/2023 08/05/2024 1 1 [facility] for visit Narrative* Diagnostic Procedure Only (Routine) - Authorized Specialty Diagnoses / Procedures Referred By Liliana t Referred To Contact BR IMAGING Diagnoses Abnormal mammogram Procedures US BREAST LTD RIGHT US BREAST UNI REAL TIME WITH IMAGE LIMITED Josefa Caputo APRN.YARDING SUPERVISOR [address] [place] [address] [facility] [address] [place] [address] Referral ID Status Reason Start Date Expiration Date Visits Requested Visits Authorized [id number] Authorized Auto-Generat ed Referral 07/07/2023 08/05/2024 1 1 [facility] for visit Narrative* Diagnostic Procedure Only (Routine) - Closed Specialty Diagnoses / Procedures Referred By Liliana t Referred To Contact XR IMAGING Diagnoses Acute pain of right knee Procedures XR KNEE LIMITED 2V AP/LAT RIGHT RADIOLOGIC EXAMINATION KNEE 1/2 VIEWS Josefa Caputo APRN.YARDING SUPERVISOR [address] [place] [address] [place] [address] Referral ID Status Reason Start Date Expiration Date V isits Requested Visits Authorized [id number] Closed Auto-Generate d Referral 12/24/2023 01/22/2025 1 1 [facility] for visit Narrative* Diagnostic Procedure Only (Routine) - Closed Specialty Diagnoses / Procedures Referred By Liliana t Referred To Contact XR IMAGING Diagnoses Renal calculus, left Procedures XR ABDOMEN 1V SUPINE RADIOLOGIC EXAM ABDOMEN 1 VIEW Maykel Patel Jr., MD [address] [place] [address] [place] [address] Referral ID Status Reason Start Date Expiration Date V isits Requested Visits Authorized [id number] Closed Auto-Generate d Referral 04/07/2022 05/07/2023 1 1 [facility] for visit Narrative* Diagnostic Procedure Only (Urgent) - Closed Specialty Diagnoses / Procedures Referred By Contac t Referred To Contact XR IMAGING Diagnoses Crushing injury of right middle finger, initial encounter Procedures XR DIGIT GENERAL 3V FRONTAL/LAT/OBL RIGHT RADEX FINGR MINIMUM 2 VIEWS Janae Sandoval, MANAGING EDITOR.YARDING SUPERVISOR [address] [place] [address] [place] [address] Referral ID Status Reason Start Date Expiration Date V isits Requested Visits Authorized [id number] Closed Auto-Generate d Referral 05/06/2022 06/05/2023 1 1 [facility] for visit Narrative* Imaging (Routine) - Closed Specialty Diagnoses / Procedures Referred By Contac t Referred To Contact Radiology Diagnoses Nontraumatic intracranial hemorrhage, unspecified (HCC) Procedures CT head wo IV contrast Tika Jones MD [address] [place] [address] Phone: tel: fax: Referral ID Status Reason Start Date Expiration Date Visits Re quested Visits Authorized [id number] Closed 08/01/2024 09/30/2024 1 1 [facility] Summary Purpose Family History No Family History Records FoundNo Family History Records FoundNo Family History Records FoundNo Family History Records FoundNo Family History Records FoundNo Family History Records FoundNo Family History Records FoundNo Family History Records Found Advance Directives No Advanced Directives Records FoundDocuments on File Type Date Recorded 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 Advance Directive(s) 08/16/2020 1:32 PM Advance Directive(s) 08/06/2020 9:17 AM Advance Directive(s) 05/05/2019 11:23 AM Advance Directive(s) 05/05/2019 11:27 AM Advance Directive(s) 03/17/2019 2:21 PM Advance Directive(s) 12/15/2018 11:36 AM Advance Directive(s) 11/23/2018 2:18 PM Advance Directive(s) 10/04/2018 7:45 AM Advance Directive(s) 11/09/2017 7:52 AM Documents on File Type Date Recorded 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 Advance Directive(s) 08/16/2020 1:32 PM Advance Directive(s) 08/06/2020 9:17 AM Advance Directive(s) 05/05/2019 11:23 AM Advance Directive(s) 05/05/2019 11:27 AM Advance Directive(s) 03/17/2019 2:21 PM Advance Directive(s) 12/15/2018 11:36 AM Advance Directive(s) 11/23/2018 2:18 PM Advance Directive(s) 10/04/2018 7:45 AM Advance Directive(s) 11/09/2017 7:52 AM Documents on File Type Date Recorded 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 Advance Directive(s) 11/21/2021 12:55 PM [...] No February 16, 2022 6:26pm Power of Booth Manager No January 6:26pm Advance Directive Response Recorded Date/ Time Advance Directives Yes June 20, 2017 8:56pm Living Will No February 21, 2022 1:16am Power of Booth Manager No January 1:16am Advance Directive Response Recorded Date/ Time Advance Directives Yes June 20, 2017 8:56pm Living Will No February 28 5:40am Power of Booth Manager No February 28 5:40am Documents on File Type Date Recorded 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 Advance Directive(s) 08/28/2022 2:42 PM Documents on File Type Date Recorded 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 Advance Directive(s) 08/28/2022 2:42 PM Advance Directive Response Recorded Date/ Time Advance Directives Yes June 20, 2017 8:56pm Living Will Yes February 26, 2023 5:38pm Power of Booth Manager Yes January 5:38pm Name of Medical Power of Booth Manager Reynaldo Davenport February 26, 2023 5:38pm Advance Directive Response Recorded Date/ Time Name of Medical Power of Booth Manager Reynaldo Davenport February 26, 2023 4:38pm Name of Medical Power of Booth Manager hardy black--[phone] June 12, 2023 7:20pm Advance Directives Yes June 20, 2017 7:56pm Living Will Yes June 12 7:20pm Power of Booth Manager Yes June 12, 2023 7:20pm Documents on File Type Date Recorded 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 Advance Directive(s) 08/28/2022 2:42 PM Hardy Black Documents on File Type Date Recorded 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 Advance Directive(s) 08/28/2022 2:42 PM Hardy Black Date Activated Date Inactivated Comments 05/06/2024 5:25 AM Question Answer Comments Full Code Order Discussed With: Patient Date Activated Date Inactivated Comments 05/08/2024 11:35 AM Question Answer Comments DNR Order Discussed With: Surrogate Decision Cesario er Surrogate Decision Maker Name: hardy cardoso Surrogate Decision Maker Relationship: Health Ca re Power of Booth Manager Agent Date Activated Date Inactivated Comments 05/08/2024 11:15 AM 05/08/2024 11:35 AM Question Answer Comments DNR Order Discussed With: Surrogate Decision Cesario er Surrogate Decision Maker Name: Hardy Black Surrogate Decision Maker Phone: [phone] Date Activated Date Inactivated Comments 05/06/2024 5:25 [...] Maker Relationship: Health Ca re Power of Booth Manager Agent Date Activated Date Inactivated Comments 05/08/2024 11:15 AM 05/08/2024 11:35 AM Question Answer Comments DNR Order Discussed With: Surrogate Decision Cesario er Surrogate Decision Maker Name: Hardy Black Surrogate Decision Maker Phone: [phone] Date Activated Date Inactivated Comments 05/06/2024 5:25 AM 05/08/2024 11:15 AM Question Answer Comments Full Code Order Discussed With: Patient Advance Directive Response Recorded Date/ Time Living Will Yes May 05 11:59pm Do you have a Healthcare Power of Booth Manager? Yes May 05, 2024 11:59pm Name of Medical Power of Booth Manager HARDY May 05, 2024 11:59pm Advance Directives Yes June 20, 2017 8:56pm Advance Directive Response Recorded Date/ Time Advance Directives Yes June 20, 2017 8:56pm Procedure Findings Note HNO ID: [id number] Author: Candie Prado Service: Urogynecology Author Type: Physician Type: Operative Report Filed: 06/12/2019 9:29 AM Note Text: OPERATIVE / PROCEDURE NOTE LOG ID: [id number] Surgery/Procedure Date: 06/12/2019 Incision/Procedure Start Time: 7:46 AM Incision Close/Procedure End Time: 8:06 AM Surgeon(s)/Proceduralist(s) and Hydroelectric Machinery Mechanic Helper(s): Surgeon(s) and Role: * Esther Prado - Primary * Chaparrita Waite MD (Fel) - Fellow No Additional Staff Procedure(s): Exam under anesthesia, Vulvar biopsies Anesthesia: MAC Findings: 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 Extensive erythema with beefy red and inflammed appearing labia majora and perianal skin in a egscoy-ng-evwdx pattern. Skin is shiny and taut. Mildly thickened, white, stellate lesions noted at 9:00 and 3:00 on the labia majora (each approximately 8 mm in size) and 7:00 at the region of the labia minora about 1.5 cm distal to the introitus (approx 10 mm in size), and las (more content not included)... 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 Extensive erythema with beefy red and inflammed appearing labia majora and perianal skin in a xnpqvb-pf-kkllz pattern. Mildly thickened, white, stellate lesions noted [...] 5:00am LABWORK June 05, 2024 5: 00am JAIL LAB WORK June 09, 2024 5:45am JAIL LAB WORK June 20, 2024 5:00am LAB WORK July 10, 2024 4:00am LAB WORK July 25, 2024 4:00am JAIL LAB WORK August 08, 2024 5 :00am Chief Complaint Admit Date fallMay 05, 2024 1 0:59pm LAB WORK May 22, 2024 5:00am LAB WORK May 23, 2024 12:15am LAB WORK May 29, 2024 5:00am LABWORK June 05, 2024 5: 00am JAIL LAB WORK June 09, 2024 5:45am JAIL LAB WORK June 20, 2024 5:00am LAB WORK July 10, 2024 4:00am LAB WORK July 25, 2024 4:00am JAIL LAB WORK August 08, 2024 5 :00am JAIL LAB WORK August 11, 2024 5 :00am Chief Complaint Admit Date JAIL LAB WORK June 20, 2024 5:00am LAB WORK July 10, 2024 4:00am LAB WORK July 25, 2024 4:00am JAIL LAB WORK August 08, 2024 5 :00am JAIL LAB WORK August 11, 2024 5 :00am LABWORK September 21, 2024 5:0 0am Chief Complaint Admit Date LAB WORK July 10, 2024 4:00am LAB WORK July 25, 2024 4:00am JAIL LAB WORK March 11th, 2025 5 :00am JAIL LAB WORK August 11, 2024 5 :00am JAIL LAB WORK September 11, 2024 9 :45pm LABWORK September 21, 2024 5:0 0am JAIL LAB WORK September 26, 2024 4 :00am Reason for Referral Specialty Diagnoses / Procedures Referred By Contac t Referred To Contact Orthopedics Diagnoses Open fracture of tuft of distal phalanx of finger Procedures CONSULT PANEL TO ORTHOPAEDICS OFFICE/OUTPATIENT [facility] 60-74 MINUTES Janae Sandoval, MANAGING EDITOR.YARDING SUPERVISOR [address] [place] [address] Referral ID Status Reason Start Date Expiration Date Visits Requested Visits Authorized [id number] Pending Review PCP Requested Referral 05/06/2022 05/06/2023 1 1 Specialty Diagnoses / Procedures Referred By Contac t Referred To Contact XR IMAGING Diagnoses Crushing injury of right middle finger, initial encounter Procedures XR DIGIT GENERAL 3V FRONTAL/LAT/OBL RIGHT RADEX FINGR MINIMUM 2 VIEWS Janae Sandoval, MANAGING EDITOR.YARDING SUPERVISOR [address] [place] [address] Xr Imaging Referral ID Status Reason Start Date Expiration Date V isits Requested Visits Authorized [id number] Closed Auto-Generate d Referral 05/06/2022 06/05/2023 1 1 Specialty Diagnoses / Procedures Referred By Contac t Referred To Contact [facility] Diagnoses Spinal stenosis of lumbar region, unspecified whether neurogenic claudication present Lumbar spondylosis Radiculopathy, lumbar region Spondylolisthesis of lumbar region Procedures CONSULT TO PHYSICAL THERAPY PHYSICAL THERAPY EVALUATION HIGH COMPLEX 45 MINS Oralia Garcia, MANAGING EDITOR.YARDING SUPERVISOR [address] [place] [address] [facility] [place] [address] [place] [address] Referral ID Status Reason Start Date Expiration Date Visits Requested Visits Authorized [id number] Pending Review Auto-Generat ed Referral 08/04/2022 08/04/2023 1 1 Specialty Diagnoses / Procedures Referred By Contac t Referred To Contact [facility] Diagnoses Spinal stenosis of lumbar region, unspecified whether neurogenic claudication present Lumbar spondylosis Radiculopathy, lumbar region Spondylolisthesis of lumbar region Procedures PT REHAB FOLLOW UP ORDER THERAPEUTIC EXERCISES RE, EA 15 MIN. Pt [facility] [address] [place] [address] [facility] [place] [address] [place] [address] Referral ID Status Reason Start Date Expiration Date Visits Requested Visits Authorized [id number] Pending Review PCP Requested Referral Auto-Generate d Referral 08/18/2022 11/16/2022 1 1 Specialty Diagnoses / Procedures Referred By Contac t Referred To Contact Cardiology Diagnoses Irregular heart rhythm FIELD (dyspnea on exertion) Premature atrial complexes Procedures CONSULT TO CARDIOLOGY OFFICE/OUTPATIENT [facility] 60-74 MINUTES Guillaume Dominguez MD [address] [place] [address] Maykel Whitfield, [address] [address] Referral ID Status Reason Start Date Expiration Date Visits Requested Visits Authorized [id number] Pending Review PCP Requested Referral 08/15/2022 08/15/2023 1 1 Specialty Diagnoses / Procedures Referred By Contac t Referred To Contact [facility] Diagnoses Bilateral carotid artery stenosis Procedures US CAROTID ARTERIES POLO VAS LAB DUPLEX SCAN EXTRACRANIAL ART COMPL BI STUDY Guillaume Dominguez MD [address] [place] [address] [facility] [place] [address] [address] Referral ID Status Reason Start Date Expiration Date Visits Requested Visits Authorized [id number] Pending Review Auto-Generat ed Referral 08/15/2022 08/15/2023 1 1 Specialty Diagnoses / Procedures Referred By Contac t Referred To Contact [facility] Diagnoses Irregular heart rhythm FIELD (dyspnea on exertion) Procedures ECG COMPLETE ECG ROUTINE ECG W/LEAST 12 LDS W/I&R Guillaume Dominguez MD [address] [place] [address] [facility] [place] [address] [place] [address] Referral ID Status Reason Start Date Expiration Date V isits Requested Visits Authorized [id number] Closed Auto-Generate d Referral 08/15/2022 08/15/2023 1 1 Specialty Diagnoses / Procedures Referred By Contac t Referred To Contact [facility] Diagnoses Spinal stenosis of lumbar region, unspecified whether neurogenic claudication present Lumbar spondylosis Spondylolisthesis of lumbar region Radiculopathy, lumbar region Procedures PT REHAB FOLLOW UP ORDER THERAPEUTIC EXERCISES RE, EA 15 MIN. Self [facility] [place] [address] [place] [address] Referral ID Status Reason Start Date Expiration Date V isits Requested Visits Authorized [id number] Closed PCP Requested Referral Auto-Generated Referral 09/17/2022 12/16/2022 1 1 Specialty Diagnoses / Procedures Referred By Contac t Referred To Contact BR IMAGING Diagnoses Breast cancer screening by mammogram Procedures ARTIS SCREENING SCREENING MAMMOGRAPHY BI 2-VIEW BREAST INC CAD Guillaume Dominguez MD [address] [place] [address] [facility] [address] [place] [address] Referral ID Status Reason Start Date Expiration Date Visits Requested Visits Authorized [id number] Pending Review Auto-Generat ed Referral 3 08/12/2023 3 1 Specialty Diagnoses / Procedures Referred By Contac t Referred To Contact Diagnoses Mild cognitive impairment Procedures CONSULT TO [facility] OFFICE/OUTPATIENT [facility] 60 MINUTES Martha Germain DO [address] [place] [address] Referral ID Status Reason Start Date Expiration Date Visits Requested Visits Authorized [id number] Authorized PCP Requested Referral 08/11/2023 08/10/2024 1 1 Specialty Diagnoses / Procedures Referred By Contac t Referred To Contact Gerontology Diagnoses Mild cognitive impairment Procedures CONSULT TO GERIATRICS OFFICE/OUTPATIENT [facility] 60 MINUTES Martha Germain, [address] [place] [address] Referral ID Status Reason Start Date Expiration Date Visits Requested Visits Authorized [id number] Authorized PCP Requested Referral 08/11/2023 08/10/2024 1 1 Specialty Diagnoses / Procedures Referred By Contac t Referred To Contact Radha Walters MD [address] [place] [address] Referral ID Status Reason Start Date Expiration Date V isits Requested Visits Authorized [id number] Authorized 05/31/2023 05/30/2024 1 1 Specialty Diagnoses / Procedures Referred By Contac t Referred To Contact Gerontology Diagnoses Cognitive impairment Procedures CONSULT TO GERIATRICS OFFICE/OUTPATIENT [facility] 60 MINUTES Guillaume Dominguez MD [address] [place] [address] Damaris Knott MD [address] [place] [address] Referral ID Status Reason Start Date Expiration Date Visits Requested Visits Authorized [id number] Authorized PCP Requested Referral 12/10/2023 12/09/2024 1 1 Additional Source Comments INFORMATION SOURCE (unrecogn ized section and content) DATE CREATED AUTHOR 11/18/2017 [facility] DATE CREATED AUTHOR AUTHOR'S ORGANIZ ATION 10/17/2018 [facility] DATE CREATED AUTHOR AUTHOR'S ORGANIZ ATION 06/27/2019 [facility] hospital DATE CREATED AUTHOR AUTHOR'S ORGANIZ ATION 03/31/2024 [facility] DATE CREATED AUTHOR AUTHOR'S ORGANIZ ATION 08/04/2024 [facility] DATE CREATED AUTHOR AUTHOR'S ORGANIZ ATION 08/05/2024 [facility] DATE CREATED AUTHOR AUTHOR'S ORGANIZ ATION 12/26/2024 [facility] DATE CREATED AUTHOR AUTHOR'S ORGANIZ ATION 03/30/2025 [facility] Source Comments (unrecognize d section and content) In the event this informatio n is protected by the Federal Confidentiality of Alcohol and Drug Abuse Patient Records regulations: The Federal rules restrict any use of the information to criminally investigate or prosecute any alcohol or drug abuse patient.[facility]In the event this information is protected by the Federal Confidentiality of Alcohol and Drug Abuse Patient Records regulations: The Federal rules restrict any use of the information to criminally investigate or prosecute any alcohol or drug abuse patient.[facility] HospitalIn the event this information is protected by the Federal Confidentiality of Alcohol and Drug Abuse Patient Records regulations: The Federal rules restrict any use of the information to criminally investigate or prosecute any alcohol or drug abuse patient.[facility] HospitalIn the event this information is protected by the Federal Confidentiality of Alcohol and Drug Abuse Patient Records regulations: The Federal rules restrict any use of the information to criminally investigate or prosecute any alcohol or drug abuse patient.[facility] HospitalIn the event this information is protected by the Federal Confidentiality of Alcohol and Drug Abuse Patient Records regulations: The Federal rules restrict any use of the information to criminally investigate or prosecute any alcohol or drug abuse patient.[facility] HospitalIn the event this information is protected by the Federal Confidentiality of Alcohol and Drug Abuse Patient Records regulations: The Federal rules restrict any use of the information to criminally investigate or prosecute any alcohol or drug abuse patient.[facility] HospitalIn the event this information is protected by the Federal Confidentiality of Alcohol and Drug Abuse Patient Records regulations: The Federal rules restrict any use of the information to criminally investigate or prosecute any alcohol or drug abuse patient.[facility] HospitalIn the event this information is protected by the Federal Confidentiality of Alcohol and Drug Abuse Patient Records regulations: The Federal rules restrict any use of the information to criminally investigate or prosecute any alcohol or drug abuse patient.[facility] HospitalIn the event this information is protected by the Federal Confidentiality of Alcohol and Drug Abuse Patient Records regulations: The Federal rules restrict any use of the information to criminally investigate or prosecute any alcohol or drug abuse patient.[facility] HospitalIn the event this information is protected by the Federal Confidentiality of Alcohol and Drug Abuse Patient Records regulations: The Federal rules restrict any use of the information to criminally investigate or prosecute any alcohol or drug abuse patient.[facility] HospitalIn the event this information is protected by the Federal Confidentiality of Alcohol and Drug Abuse Patient Records regulations: The Federal rules restrict any use of the information to criminally investigate or prosecute any alcohol or drug abuse patient.[facility] HospitalIn the event this information is protected by the Federal Confidentiality of Alcohol and Drug Abuse Patient Records regulations: The Federal rules restrict any use of the information to criminally investigate or prosecute any alcohol or drug abuse patient.[facility] HospitalIn the event this information is protected by the Federal Confidentiality of Alcohol and Drug Abuse Patient Records regulations: The Federal rules restrict any use of the information to criminally investigate or prosecute any alcohol or drug abuse patient.[facility] HospitalIn the event this information is protected by the Federal Confidentiality of Alcohol and Drug Abuse Patient Records regulations: The Federal rules restrict any use of the information to criminally investigate or prosecute any alcohol or drug abuse patient.[facility] HospitalIn the event this information is protected by the Federal Confidentiality of Alcohol and Drug Abuse Patient Records regulations: The Federal rules restrict any use of the information to criminally investigate or prosecute any alcohol or drug abuse patient.[facility] HospitalIn the event this information is protected by the Federal Confidentiality of Alcohol and Drug Abuse Patient Records regulations: The Federal rules restrict any use of the information to criminally investigate or prosecute any alcohol or drug abuse patient.[facility] HospitalIn the event this information is protected by the Federal Confidentiality of Alcohol and Drug Abuse Patient Records regulations: The Federal rules restrict any use of the information to criminally investigate or prosecute any alcohol or drug abuse patient.[facility] HospitalIn the event this information is protected by the Federal Confidentiality of Alcohol and Drug Abuse Patient Records regulations: The Federal rules restrict any use of the information to criminally investigate or prosecute any alcohol or drug abuse patient.[facility] HospitalIn the event this information is protected by the Federal Confidentiality of Alcohol and Drug Abuse Patient Records regulations: The Federal rules restrict any use of the information to criminally investigate or prosecute any alcohol or drug abuse patient.[facility] HospitalIn the event this information is protected by the Federal Confidentiality of Alcohol and Drug Abuse Patient Records regulations: The Federal rules restrict any use of the information to criminally investigate or prosecute any alcohol or drug abuse patient.[facility] HospitalIn the event this information is protected by the Federal Confidentiality of Alcohol and Drug Abuse Patient Records regulations: The Federal rules restrict any use of the information to criminally investigate or prosecute any alcohol or drug abuse patient.[facility] HospitalIn the event this information is protected by the Federal Confidentiality of Alcohol and Drug Abuse Patient Records regulations: The Federal rules restrict any use of the information to criminally investigate or prosecute any alcohol or drug abuse patient.[facility] HospitalIn the event this information is protected by the Federal Confidentiality of Alcohol and Drug Abuse Patient Records regulations: The Federal rules restrict any use of the information to criminally investigate or prosecute any alcohol or drug abuse patient.[facility] HospitalIn the event this information is protected by the Federal Confidentiality of Alcohol and Drug Abuse Patient Records regulations: The Federal rules restrict any use of the information to criminally investigate or prosecute any alcohol or drug abuse patient.[facility] HospitalIn the event this information is protected by the Federal Confidentiality of Alcohol and Drug Abuse Patient Records regulations: The Federal rules restrict any use of the information to criminally investigate or prosecute any alcohol or drug abuse patient.[facility] HospitalIn the event this information is protected by the Federal Confidentiality of Alcohol and Drug Abuse Patient Records regulations: The Federal rules restrict any use of the information to criminally investigate or prosecute any alcohol or drug abuse patient.[facility] HospitalIn the event this information is protected by the Federal Confidentiality of Alcohol and Drug Abuse Patient Records regulations: The Federal rules restrict any use of the information to criminally investigate or prosecute any alcohol or drug abuse patient.[facility] HospitalIn the event this information is protected by the Federal Confidentiality of Alcohol and Drug Abuse Patient Records regulations: The Federal rules restrict any use of the information to criminally investigate or prosecute any alcohol or drug abuse patient.[facility] HospitalIn the event this information is protected by the Federal Confidentiality of Alcohol and Drug Abuse Patient Records regulations: The Federal rules restrict any use of the information to criminally investigate or prosecute any alcohol or drug abuse patient.[facility] HospitalIn the event this information is protected by the Federal Confidentiality of Alcohol and Drug Abuse Patient Records regulations: The Federal rules restrict any use of the information to criminally investigate or prosecute any alcohol or drug abuse patient.[facility] HospitalIn the event this information is protected by the Federal Confidentiality of Alcohol and Drug Abuse Patient Records regulations: The Federal rules restrict any use of the information to criminally investigate or prosecute any alcohol or drug abuse patient.[facility] HospitalIn the event this information is protected by the Federal Confidentiality of Alcohol and Drug Abuse Patient Records regulations: The Federal rules restrict any use of the information to criminally investigate or prosecute any alcohol or drug abuse patient.[facility] HospitalIn the event this information is protected by the Federal Confidentiality of Alcohol and Drug Abuse Patient Records regulations: The Federal rules restrict any use of the information to criminally investigate or prosecute any alcohol or drug abuse patient.[facility] HospitalIn the event this information is protected by the Federal Confidentiality of Alcohol and Drug Abuse Patient Records regulations: The Federal rules restrict any use of the information to criminally investigate or prosecute any alcohol or drug abuse patient.[facility] HospitalIn the event this information is protected by the Federal Confidentiality of Alcohol and Drug Abuse Patient Records regulations: The Federal rules restrict any use of the information to criminally investigate or prosecute any alcohol or drug abuse patient.[facility] HospitalIn the event this information is protected by the Federal Confidentiality of Alcohol and Drug Abuse Patient Records regulations: The Federal rules restrict any use of the information to criminally investigate or prosecute any alcohol or drug abuse patient.[facility] HospitalIn the event this information is protected by the Federal Confidentiality of Alcohol and Drug Abuse Patient Records regulations: The Federal rules restrict any use of the information to criminally investigate or prosecute any alcohol or drug abuse patient.[facility] HospitalIn the event this information is protected by the Federal Confidentiality of Alcohol and Drug Abuse Patient Records regulations: The Federal rules restrict any use of the information to criminally investigate or prosecute any alcohol or drug abuse patient.[facility] HospitalIn the event this information is protected by the Federal Confidentiality of Alcohol and Drug Abuse Patient Records regulations: The Federal rules restrict any use of the information to criminally investigate or prosecute any alcohol or drug abuse patient.[facility] HospitalIn the event this information is protected by the Federal Confidentiality of Alcohol and Drug Abuse Patient Records regulations: The Federal rules restrict any use of the information to criminally investigate or prosecute any alcohol or drug abuse patient.[facility] HospitalIn the event this information is protected by the Federal Confidentiality of Alcohol and Drug Abuse Patient Records regulations: The Federal rules restrict any use of the information to criminally investigate or prosecute any alcohol or drug abuse patient.[facility] HospitalIn the event this information is protected by the Federal Confidentiality of Alcohol and Drug Abuse Patient Records regulations: The Federal rules restrict any use of the information to criminally investigate or prosecute any alcohol or drug abuse patient.[facility] HospitalIn the event this information is protected by the Federal Confidentiality of Alcohol and Drug Abuse Patient Records regulations: The Federal rules restrict any use of the information to criminally investigate or prosecute any alcohol or drug abuse patient.[facility] HospitalIn the event this information is protected by the Federal Confidentiality of Alcohol and Drug Abuse Patient Records regulations: The Federal rules restrict any use of the information to criminally investigate or prosecute any alcohol or drug abuse patient.[facility] HospitalIn the event this information is protected by the Federal Confidentiality of Alcohol and Drug Abuse Patient Records regulations: The Federal rules restrict any use of the information to criminally investigate or prosecute any alcohol or drug abuse patient.[facility] HospitalIn the event this information is protected by the Federal Confidentiality of Alcohol and Drug Abuse Patient Records regulations: The Federal rules restrict any use of the information to criminally investigate or prosecute any alcohol or drug abuse patient.[facility] HospitalIn the event this information is protected by the Federal Confidentiality of Alcohol and Drug Abuse Patient Records regulations: The Federal rules restrict any use of the information to criminally investigate or prosecute any alcohol or drug abuse patient.[facility] HospitalIn the event this information is protected by the Federal Confidentiality of Alcohol and Drug Abuse Patient Records regulations: The Federal rules restrict any use of the information to criminally investigate or prosecute any alcohol or drug abuse patient.[facility] HospitalIn the event this information is protected by the Federal Confidentiality of Alcohol and Drug Abuse Patient Records regulations: The Federal rules restrict any use of the information to criminally investigate or prosecute any alcohol or drug abuse patient.[facility] HospitalIn the event this information is protected by the Federal Confidentiality of Alcohol and Drug Abuse Patient Records regulations: The Federal rules restrict any use of the information to criminally investigate or prosecute any alcohol or drug abuse patient.[facility] HospitalIn the event this information is protected by the Federal Confidentiality of Alcohol and Drug Abuse Patient Records regulations: The Federal rules restrict any use of the information to criminally investigate or prosecute any alcohol or drug abuse patient.[facility] HospitalIn the event this information is protected by the Federal Confidentiality of Alcohol and Drug Abuse Patient Records regulations: The Federal rules restrict any use of the information to criminally investigate or prosecute any alcohol or drug abuse patient.[facility] HospitalIn the event this information is protected by the Federal Confidentiality of Alcohol and Drug Abuse Patient Records regulations: The Federal rules restrict any use of the information to criminally investigate or prosecute any alcohol or drug abuse patient.[facility] HospitalIn the event this information is protected by the Federal Confidentiality of Alcohol and Drug Abuse Patient Records regulations: The Federal rules restrict any use of the information to criminally investigate or prosecute any alcohol or drug abuse patient.[facility] HospitalIn the event this information is protected by the Federal Confidentiality of Alcohol and Drug Abuse Patient Records regulations: The Federal rules restrict any use of the information to criminally investigate or prosecute any alcohol or drug abuse patient.[facility] HospitalIn the event this information is protected by the Federal Confidentiality of Alcohol and Drug Abuse Patient Records regulations: The Federal rules restrict any use of the information to criminally investigate or prosecute any alcohol or drug abuse patient.[facility] HospitalIn the event this information is protected by the Federal Confidentiality of Alcohol and Drug Abuse Patient Records regulations: The Federal rules restrict any use of the information to criminally investigate or prosecute any alcohol or drug abuse patient.[facility] HospitalIn the event this information is protected by the Federal Confidentiality of Alcohol and Drug Abuse Patient Records regulations: The Federal rules restrict any use of the information to criminally investigate or prosecute any alcohol or drug abuse patient.[facility] HospitalIn the event this information is protected by the Federal Confidentiality of Alcohol and Drug Abuse Patient Records regulations: The Federal rules restrict any use of the information to criminally investigate or prosecute any alcohol or drug abuse patient.[facility] HospitalIn the event this information is protected by the Federal Confidentiality of Alcohol and Drug Abuse Patient Records regulations: The Federal rules restrict any use of the information to criminally investigate or prosecute any alcohol or drug abuse patient.[facility] HospitalIn the event this information is protected by the Federal Confidentiality of Alcohol and Drug Abuse Patient Records regulations: The Federal rules restrict any use of the information to criminally investigate or prosecute any alcohol or drug abuse patient.[facility] HospitalIn the event this information is protected by the Federal Confidentiality of Alcohol and Drug Abuse Patient Records regulations: The Federal rules restrict any use of the information to criminally investigate or prosecute any alcohol or drug abuse patient.[facility] HospitalIn the event this information is protected by the Federal Confidentiality of Alcohol and Drug Abuse Patient Records regulations: The Federal rules restrict any use of the information to criminally investigate or prosecute any alcohol or drug abuse patient.[facility] HospitalIn the event this information is protected by the Federal Confidentiality of Alcohol and Drug Abuse Patient Records regulations: The Federal rules restrict any use of the information to criminally investigate or prosecute any alcohol or drug abuse patient.[facility] HospitalIn the event this information is protected by the Federal Confidentiality of Alcohol and Drug Abuse Patient Records regulations: The Federal rules restrict any use of the information to criminally investigate or prosecute any alcohol or drug abuse patient.[facility] HospitalIn the event this information is protected by the Federal Confidentiality of Alcohol and Drug Abuse Patient Records regulations: The Federal rules restrict any use of the information to criminally investigate or prosecute any alcohol or drug abuse patient.[facility] HospitalIn the event this information is protected by the Federal Confidentiality of Alcohol and Drug Abuse Patient Records regulations: The Federal rules restrict any use of the information to criminally investigate or prosecute any alcohol or drug abuse patient.[facility] HospitalIn the event this information is protected by the Federal Confidentiality of Alcohol and Drug Abuse Patient Records regulations: The Federal rules restrict any use of the information to criminally investigate or prosecute any alcohol or drug abuse patient.[facility] HospitalIn the event this information is protected by the Federal Confidentiality of Alcohol and Drug Abuse Patient Records regulations: The Federal rules restrict any use of the information to criminally investigate or prosecute any alcohol or drug abuse patient.[facility] HospitalIn the event this information is protected by the Federal Confidentiality of Alcohol and Drug Abuse Patient Records regulations: The Federal rules restrict any use of the information to criminally investigate or prosecute any alcohol or drug abuse patient.[facility] HospitalIn the event this information is protected by the Federal Confidentiality of Alcohol and Drug Abuse Patient Records regulations: The Federal rules restrict any use of the information to criminally investigate or prosecute any alcohol or drug abuse patient.[facility] HospitalIn the event this information is protected by the Federal Confidentiality of Alcohol and Drug Abuse Patient Records regulations: The Federal rules restrict any use of the information to criminally investigate or prosecute any alcohol or drug abuse patient.[facility] HospitalIn the event this information is protected by the Federal Confidentiality of Alcohol and Drug Abuse Patient Records regulations: The Federal rules restrict any use of the information to criminally investigate or prosecute any alcohol or drug abuse patient.[facility] HospitalIn the event this information is protected by the Federal Confidentiality of Alcohol and Drug Abuse Patient Records regulations: The Federal rules restrict any use of the information to criminally investigate or prosecute any alcohol or drug abuse patient.[facility] HospitalIn the event this information is protected by the Federal Confidentiality of Alcohol and Drug Abuse Patient Records regulations: The Federal rules restrict any use of the information to criminally investigate or prosecute any alcohol or drug abuse patient.[facility] HospitalIn the event this information is protected by the Federal Confidentiality of Alcohol and Drug Abuse Patient Records regulations: The Federal rules restrict any use of the information to criminally investigate or prosecute any alcohol or drug abuse patient.[facility] HospitalIn the event this information is protected by the Federal Confidentiality of Alcohol and Drug Abuse Patient Records regulations: The Federal rules restrict any use of the information to criminally investigate or prosecute any alcohol or drug abuse patient.[facility] HospitalIn the event this information is protected by the Federal Confidentiality of Alcohol and Drug Abuse Patient Records regulations: The Federal rules restrict any use of the information to criminally investigate or prosecute any alcohol or drug abuse patient.[facility] HospitalIn the event this information is protected by the Federal Confidentiality of Alcohol and Drug Abuse Patient Records regulations: The Federal rules restrict any use of the information to criminally investigate or prosecute any alcohol or drug abuse patient.[facility] HospitalIn the event this information is protected by the Federal Confidentiality of Alcohol and Drug Abuse Patient Records regulations: The Federal rules restrict any use of the information to criminally investigate or prosecute any alcohol or drug abuse patient.[facility] HospitalIn the event this information is protected by the Federal Confidentiality of Alcohol and Drug Abuse Patient Records regulations: The Federal rules restrict any use of the information to criminally investigate or prosecute any alcohol or drug abuse patient.[facility] HospitalIn the event this information is protected by the Federal Confidentiality of Alcohol and Drug Abuse Patient Records regulations: The Federal rules restrict any use of the information to criminally investigate or prosecute any alcohol or drug abuse patient.[facility] HospitalIn the event this information is protected by the Federal Confidentiality of Alcohol and Drug Abuse Patient Records regulations: The Federal rules restrict any use of the information to criminally investigate or prosecute any alcohol or drug abuse patient.[facility] HospitalIn the event this information is protected by the Federal Confidentiality of Alcohol and Drug Abuse Patient Records regulations: The Federal rules restrict any use of the information to criminally investigate or prosecute any alcohol or drug abuse patient.[facility] HospitalIn the event this information is protected by the Federal Confidentiality of Alcohol and Drug Abuse Patient Records regulations: The Federal rules restrict any use of the information to criminally investigate or prosecute any alcohol or drug abuse patient.[facility] HospitalIn the event this information is protected by the Federal Confidentiality of Alcohol and Drug Abuse Patient Records regulations: The Federal rules restrict any use of the information to criminally investigate or prosecute any alcohol or drug abuse patient.[facility] HospitalIn the event this information is protected by the Federal Confidentiality of Alcohol and Drug Abuse Patient Records regulations: The Federal rules restrict any use of the information to criminally investigate or prosecute any alcohol or drug abuse patient.[facility] HospitalIn the event this information is protected by the Federal Confidentiality of Alcohol and Drug Abuse Patient Records regulations: The Federal rules restrict any use of the information to criminally investigate or prosecute any alcohol or drug abuse patient.[facility] HospitalIn the event this information is protected by the Federal Confidentiality of Alcohol and Drug Abuse Patient Records regulations: The Federal rules restrict any use of the information to criminally investigate or prosecute any alcohol or drug abuse patient.[facility] HospitalIn the event this information is protected by the Federal Confidentiality of Alcohol and Drug Abuse Patient Records regulations: The Federal rules restrict any use of the information to criminally investigate or prosecute any alcohol or drug abuse patient.[facility] HospitalIn the event this information is protected by the Federal Confidentiality of Alcohol and Drug Abuse Patient Records regulations: The Federal rules restrict any use of the information to criminally investigate or prosecute any alcohol or drug abuse patient.[facility] HospitalIn the event this information is protected by the Federal Confidentiality of Alcohol and Drug Abuse Patient Records regulations: The Federal rules restrict any use of the information to criminally investigate or prosecute any alcohol or drug abuse patient.[facility] HospitalIn the event this information is protected by the Federal Confidentiality of Alcohol and Drug Abuse Patient Records regulations: The Federal rules restrict any use of the information to criminally investigate or prosecute any alcohol or drug abuse patient.[facility] HospitalIn the event this information is protected by the Federal Confidentiality of Alcohol and Drug Abuse Patient Records regulations: The Federal rules restrict any use of the information to criminally investigate or prosecute any alcohol or drug abuse patient.[facility] HospitalIn the event this information is protected by the Federal Confidentiality of Alcohol and Drug Abuse Patient Records regulations: The Federal rules restrict any use of the information to criminally investigate or prosecute any alcohol or drug abuse patient.[facility] HospitalIn the event this information is protected by the Federal Confidentiality of Alcohol and Drug Abuse Patient Records regulations: The Federal rules restrict any use of the information to criminally investigate or prosecute any alcohol or drug abuse patient.[facility] HospitalIn the event this information is protected by the Federal Confidentiality of Alcohol and Drug Abuse Patient Records regulations: The Federal rules restrict any use of the information to criminally investigate or prosecute any alcohol or drug abuse patient.[facility] HospitalIn the event this information is protected by the Federal Confidentiality of Alcohol and Drug Abuse Patient Records regulations: The Federal rules restrict any use of the information to criminally investigate or prosecute any alcohol or drug abuse patient.[facility] HospitalIn the event this information is protected by the Federal Confidentiality of Alcohol and Drug Abuse Patient Records regulations: The Federal rules restrict any use of the information to criminally investigate or prosecute any alcohol or drug abuse patient.[facility] HospitalIn the event this information is protected by the Federal Confidentiality of Alcohol and Drug Abuse Patient Records regulations: The Federal rules restrict any use of the information to criminally investigate or prosecute any alcohol or drug abuse patient.[facility] HospitalIn the event this information is protected by the Federal Confidentiality of Alcohol and Drug Abuse Patient Records regulations: The Federal rules restrict any use of the information to criminally investigate or prosecute any alcohol or drug abuse patient.[facility] HospitalIn the event this information is protected by the Federal Confidentiality of Alcohol and Drug Abuse Patient Records regulations: The Federal rules restrict any use of the information to criminally investigate or prosecute any alcohol or drug abuse patient.[facility] HospitalIn the event this information is protected by the Federal Confidentiality of Alcohol and Drug Abuse Patient Records regulations: The Federal rules restrict any use of the information to criminally investigate or prosecute any alcohol or drug abuse patient.[facility] HospitalIn the event this information is protected by the Federal Confidentiality of Alcohol and Drug Abuse Patient Records regulations: The Federal rules restrict any use of the information to criminally investigate or prosecute any alcohol or drug abuse patient.[facility] HospitalIn the event this information is protected by the Federal Confidentiality of Alcohol and Drug Abuse Patient Records regulations: The Federal rules restrict any use of the information to criminally investigate or prosecute any alcohol or drug abuse patient.[facility] HospitalIn the event this information is protected by the Federal Confidentiality of Alcohol and Drug Abuse Patient Records regulations: The Federal rules restrict any use of the information to criminally investigate or prosecute any alcohol or drug abuse patient.[facility] HospitalIn the event this information is protected by the Federal Confidentiality of Alcohol and Drug Abuse Patient Records regulations: The Federal rules restrict any use of the information to criminally investigate or prosecute any alcohol or drug abuse patient.[facility] HospitalIn the event this information is protected by the Federal Confidentiality of Alcohol and Drug Abuse Patient Records regulations: The Federal rules restrict any use of the information to criminally investigate or prosecute any alcohol or drug abuse patient.[facility] HospitalIn the event this information is protected by the Federal Confidentiality of Alcohol and Drug Abuse Patient Records regulations: The Federal rules restrict any use of the information to criminally investigate or prosecute any alcohol or drug abuse patient.[facility] HospitalIn the event this information is protected by the Federal Confidentiality of Alcohol and Drug Abuse Patient Records regulations: The Federal rules restrict any use of the information to criminally investigate or prosecute any alcohol or drug abuse patient.[facility] HospitalIn the event this information is protected by the Federal Confidentiality of Alcohol and Drug Abuse Patient Records regulations: The Federal rules restrict any use of the information to criminally investigate or prosecute any alcohol or drug abuse patient.[facility] HospitalIn the event this information is protected by the Federal Confidentiality of Alcohol and Drug Abuse Patient Records regulations: The Federal rules restrict any use of the information to criminally investigate or prosecute any alcohol or drug abuse patient.[facility] HospitalIn the event this information is protected by the Federal Confidentiality of Alcohol and Drug Abuse Patient Records regulations: The Federal rules restrict any use of the information to criminally investigate or prosecute any alcohol or drug abuse patient.[facility] HospitalIn the event this information is protected by the Federal Confidentiality of Alcohol and Drug Abuse Patient Records regulations: The Federal rules restrict any use of the information to criminally investigate or prosecute any alcohol or drug abuse patient.[facility] HospitalIn the event this information is protected by the Federal Confidentiality of Alcohol and Drug Abuse Patient Records regulations: The Federal rules restrict any use of the information to criminally investigate or prosecute any alcohol or drug abuse patient.[facility] HospitalIn the event this information is protected by the Federal Confidentiality of Alcohol and Drug Abuse Patient Records regulations: The Federal rules restrict any use of the information to criminally investigate or prosecute any alcohol or drug abuse patient.[facility] HospitalIn the event this information is protected by the Federal Confidentiality of Alcohol and Drug Abuse Patient Records regulations: The Federal rules restrict any use of the information to criminally investigate or prosecute any alcohol or drug abuse patient.[facility] HospitalIn the event this information is protected by the Federal Confidentiality of Alcohol and Drug Abuse Patient Records regulations: The Federal rules restrict any use of the information to criminally investigate or prosecute any alcohol or drug abuse patient.[facility] HospitalIn the event this information is protected by the Federal Confidentiality of Alcohol and Drug Abuse Patient Records regulations: The Federal rules restrict any use of the information to criminally investigate or prosecute any alcohol or drug abuse patient.[facility] HospitalIn the event this information is protected by the Federal Confidentiality of Alcohol and Drug Abuse Patient Records regulations: The Federal rules restrict any use of the information to criminally investigate or prosecute any alcohol or drug abuse patient.[facility] HospitalIn the event this information is protected by the Federal Confidentiality of Alcohol and Drug Abuse Patient Records regulations: The Federal rules restrict any use of the information to criminally investigate or prosecute any alcohol or drug abuse patient.[facility] HospitalIn the event this information is protected by the Federal Confidentiality of Alcohol and Drug Abuse Patient Records regulations: The Federal rules restrict any use of the information to criminally investigate or prosecute any alcohol or drug abuse patient.[facility] HospitalIn the event this information is protected by the Federal Confidentiality of Alcohol and Drug Abuse Patient Records regulations: The Federal rules restrict any use of the information to criminally investigate or prosecute any alcohol or drug abuse patient.[facility] HospitalIn the event this information is protected by the Federal Confidentiality of Alcohol and Drug Abuse Patient Records regulations: The Federal rules restrict any use of the information to criminally investigate or prosecute any alcohol or drug abuse patient.[facility] HospitalIn the event this information is protected by the Federal Confidentiality of Alcohol and Drug Abuse Patient Records regulations: The Federal rules restrict any use of the information to criminally investigate or prosecute any alcohol or drug abuse patient.[facility] HospitalIn the event this information is protected by the Federal Confidentiality of Alcohol and Drug Abuse Patient Records regulations: The Federal rules restrict any use of the information to criminally investigate or prosecute any alcohol or drug abuse patient.[facility] HospitalIn the event this information is protected by the Federal Confidentiality of Alcohol and Drug Abuse Patient Records regulations: The Federal rules restrict any use of the information to criminally investigate or prosecute any alcohol or drug abuse patient.[facility] HospitalIn the event this information is protected by the Federal Confidentiality of Alcohol and Drug Abuse Patient Records regulations: The Federal rules restrict any use of the information to criminally investigate or prosecute any alcohol or drug abuse patient.[facility] HospitalIn the event this information is protected by the Federal Confidentiality of Alcohol and Drug Abuse Patient Records regulations: The Federal rules restrict any use of the information to criminally investigate or prosecute any alcohol or drug abuse patient.[facility] HospitalIn the event this information is protected by the Federal Confidentiality of Alcohol and Drug Abuse Patient Records regulations: The Federal rules restrict any use of the information to criminally investigate or prosecute any alcohol or drug abuse patient.[facility] HospitalIn the event this information is protected by the Federal Confidentiality of Alcohol and Drug Abuse Patient Records regulations: The Federal rules restrict any use of the information to criminally investigate or prosecute any alcohol or drug abuse patient.[facility] HospitalIn the event this information is protected by the Federal Confidentiality of Alcohol and Drug Abuse Patient Records regulations: The Federal rules restrict any use of the information to criminally investigate or prosecute any alcohol or drug abuse patient.[facility] HospitalIn the event this information is protected by the Federal Confidentiality of Alcohol and Drug Abuse Patient Records regulations: The Federal rules restrict any use of the information to criminally investigate or prosecute any alcohol or drug abuse patient.[facility] HospitalIn the event this information is protected by the Federal Confidentiality of Alcohol and Drug Abuse Patient Records regulations: The Federal rules restrict any use of the information to criminally investigate or prosecute any alcohol or drug abuse patient.[facility] HospitalIn the event this information is protected by the Federal Confidentiality of Alcohol and Drug Abuse Patient Records regulations: The Federal rules restrict any use of the information to criminally investigate or prosecute any alcohol or drug abuse patient.[facility] HospitalIn the event this information is protected by the Federal Confidentiality of Alcohol and Drug Abuse Patient Records regulations: The Federal rules restrict any use of the information to criminally investigate or prosecute any alcohol or drug abuse patient.[facility] HospitalIn the event this information is protected by the Federal Confidentiality of Alcohol and Drug Abuse Patient Records regulations: The Federal rules restrict any use of the information to criminally investigate or prosecute any alcohol or drug abuse patient.[facility] HospitalIn the event this information is protected by the Federal Confidentiality of Alcohol and Drug Abuse Patient Records regulations: The Federal rules restrict any use of the information to criminally investigate or prosecute any alcohol or drug abuse patient.[facility] HospitalIn the event this information is protected by the Federal Confidentiality of Alcohol and Drug Abuse Patient Records regulations: The Federal rules restrict any use of the information to criminally investigate or prosecute any alcohol or drug abuse patient.[facility] HospitalIn the event this information is protected by the Federal Confidentiality of Alcohol and Drug Abuse Patient Records regulations: The Federal rules restrict any use of the information to criminally investigate or prosecute any alcohol or drug abuse patient.[facility] HospitalIn the event this information is protected by the Federal Confidentiality of Alcohol and Drug Abuse Patient Records regulations: The Federal rules restrict any use of the information to criminally investigate or prosecute any alcohol or drug abuse patient.[facility] HospitalIn the event this information is protected by the Federal Confidentiality of Alcohol and Drug Abuse Patient Records regulations: The Federal rules restrict any use of the information to criminally investigate or prosecute any alcohol or drug abuse patient.[facility] HospitalIn the event this information is protected by the Federal Confidentiality of Alcohol and Drug Abuse Patient Records regulations: The Federal rules restrict any use of the information to criminally investigate or prosecute any alcohol or drug abuse patient.[facility] HospitalIn the event this information is protected by the Federal Confidentiality of Alcohol and Drug Abuse Patient Records regulations: The Federal rules restrict any use of the information to criminally investigate or prosecute any alcohol or drug abuse patient.[facility] HospitalIn the event this information is protected by the Federal Confidentiality of Alcohol and Drug Abuse Patient Records regulations: The Federal rules restrict any use of the information to criminally investigate or prosecute any alcohol or drug abuse patient.[facility] HospitalIn the event this information is protected by the Federal Confidentiality of Alcohol and Drug Abuse Patient Records regulations: The Federal rules restrict any use of the information to criminally investigate or prosecute any alcohol or drug abuse patient.[facility] HospitalIn the event this information is protected by the Federal Confidentiality of Alcohol and Drug Abuse Patient Records regulations: The Federal rules restrict any use of the information to criminally investigate or prosecute any alcohol or drug abuse patient.[facility] HospitalIn the event this information is protected by the Federal Confidentiality of Alcohol and Drug Abuse Patient Records regulations: The Federal rules restrict any use of the information to criminally investigate or prosecute any alcohol or drug abuse patient.[facility] HospitalIn the event this information is protected by the Federal Confidentiality of Alcohol and Drug Abuse Patient Records regulations: The Federal rules restrict any use of the information to criminally investigate or prosecute any alcohol or drug abuse patient.[facility] HospitalIn the event this information is protected by the Federal Confidentiality of Alcohol and Drug Abuse Patient Records regulations: The Federal rules restrict any use of the information to criminally investigate or prosecute any alcohol or drug abuse patient.[facility] HospitalIn the event this information is protected by the Federal Confidentiality of Alcohol and Drug Abuse Patient Records regulations: The Federal rules restrict any use of the information to criminally investigate or prosecute any alcohol or drug abuse patient.[facility] HospitalIn the event this information is protected by the Federal Confidentiality of Alcohol and Drug Abuse Patient Records regulations: The Federal rules restrict any use of the information to criminally investigate or prosecute any alcohol or drug abuse patient.[facility] HospitalIn the event this information is protected by the Federal Confidentiality of Alcohol and Drug Abuse Patient Records regulations: The Federal rules restrict any use of the information to criminally investigate or prosecute any alcohol or drug abuse patient.[facility] HospitalIn the event this information is protected by the Federal Confidentiality of Alcohol and Drug Abuse Patient Records regulations: The Federal rules restrict any use of the information to criminally investigate or prosecute any alcohol or drug abuse patient.[facility] HospitalIn the event this information is protected by the Federal Confidentiality of Alcohol and Drug Abuse Patient Records regulations: The Federal rules restrict any use of the information to criminally investigate or prosecute any alcohol or drug abuse patient.[facility] HospitalIn the event this information is protected by the Federal Confidentiality of Alcohol and Drug Abuse Patient Records regulations: The Federal rules restrict any use of the information to criminally investigate or prosecute any alcohol or drug abuse patient.[facility] HospitalIn the event this information is protected by the Federal Confidentiality of Alcohol and Drug Abuse Patient Records regulations: The Federal rules restrict any use of the information to criminally investigate or prosecute any alcohol or drug abuse patient.[facility] HospitalIn the event this information is protected by the Federal Confidentiality of Alcohol and Drug Abuse Patient Records regulations: The Federal rules restrict any use of the information to criminally investigate or prosecute any alcohol or drug abuse patient.[facility] HospitalIn the event this information is protected by the Federal Confidentiality of Alcohol and Drug Abuse Patient Records regulations: The Federal rules restrict any use of the information to criminally investigate or prosecute any alcohol or drug abuse patient.[facility] HospitalIn the event this information is protected by the Federal Confidentiality of Alcohol and Drug Abuse Patient Records regulations: The Federal rules restrict any use of the information to criminally investigate or prosecute any alcohol or drug abuse patient.[facility] HospitalIn the event this information is protected by the Federal Confidentiality of Alcohol and Drug Abuse Patient Records regulations: The Federal rules restrict any use of the information to criminally investigate or prosecute any alcohol or drug abuse patient.[facility] HospitalIn the event this information is protected by the Federal Confidentiality of Alcohol and Drug Abuse Patient Records regulations: The Federal rules restrict any use of the information to criminally investigate or prosecute any alcohol or drug abuse patient.[facility] HospitalIn the event this information is protected by the Federal Confidentiality of Alcohol and Drug Abuse Patient Records regulations: The Federal rules restrict any use of the information to criminally investigate or prosecute any alcohol or drug abuse patient.[facility] HospitalIn the event this information is protected by the Federal Confidentiality of Alcohol and Drug Abuse Patient Records regulations: The Federal rules restrict any use of the information to criminally investigate or prosecute any alcohol or drug abuse patient.[facility] HospitalIn the event this information is protected by the Federal Confidentiality of Alcohol and Drug Abuse Patient Records regulations: The Federal rules restrict any use of the information to criminally investigate or prosecute any alcohol or drug abuse patient.[facility] HospitalIn the event this information is protected by the Federal Confidentiality of Alcohol and Drug Abuse Patient Records regulations: The Federal rules restrict any use of the information to criminally investigate or prosecute any alcohol or drug abuse patient.[facility] Reason for Visit (unrecogniz ed section [...] NEW HIGH MDM 60-74 MINUTES Comfort Patterson, GM.CHEMICAL ENGINEERING TECHNICIAN [address] [place] [address] Referral ID Status Reason Start Date Expiration Date Visits Requested Visits Authorized [id number] Pending Review PCP Requested Referral 10/28/2021 10/07/2022 [...] RSPSE SPMTRY PRE&POST-BRNCDILAT ADMN Guillaume Dominguez MD [address] [place] [address] [facility] [place] [address] [place] [address] Referral ID Status Reason Start Date Expiration Date V isits Requested Visits Authorized [id number] Closed Auto-Generate d Referral 04/27/2022 05/27/2023 1 1 Specialty Diagnoses / Procedures Referred By Contac t Referred To [facility] Diagnoses FIELD (dyspnea on exertion) Chronic cough Procedures LUNG VOLUMES Guillaume Dominguez MD [address] [place] [address] [facility] [place] [address] [id number] Referral ID Status Reason Start Date Expiration Date V isits Requested Visits Authorized [id number] Closed Auto-Generate d Referral 04/28/2022 05/30/2022 1 [...] EVALUATION HIGH COMPLEX 45 MINS Oralia Garcia, MANAGING EDITOR.YARDING SUPERVISOR [id number] [place] [address] [facility] [address] [address] Referral ID Status Reason Start Date Expiration Date V isits Requested Visits Authorized [id number] Closed Auto-Generate d Referral 05/31/2022 05/30/2023 1 [...] Juanita Wharton, PT, DPT [address] [place] [address] [facility] [address] [address] Referral ID Status Reason Start Date Expiration Date Visits Requested Visits Authorized [id number] Authorized PCP Requested Referral Auto-Generate d Referral [...] Wharton, PT, DPT [address] [place] [address] [facility] [address] [address] Reason Onset Date Comments Refill Request 09/23/2022 Reason Onset Date Comments Refill Request 09/25/2022 Reason Comments Anticoagulation Referral ID Status Reason Start Date Expiration Date V isits Requested Visits Authorized [id number] Closed PCP Requested Referral Auto-Generated Referral 08/19/2022 [...] EST RS PT ORTH MSVeda White [address]; [address] [address] Nhi Iverson PT Referral ID Status Reason Start Date Expiration Date V isits Requested Visits Authorized [id number] Authorized 10/12/2022 01/28/2023 10 10 Reason Comments [employer]er - Other Reason Comments Follow Up Non-insulin [...] atrial complexes Procedures CONSULT TO CARDIOLOGY OFFICE/OUTPATIENT [facility] 60-74 MINUTES Guillaume Dominguez MD [address] [place] [address] Maykel Whitfield, DO [address] [address] Referral ID Status Reason Start Date Expiration Date Visits Requested Visits Authorized [id number] Pending Review PCP Requested Referral 08/15/2022 08/15/2023 1 1 Reason Comments Forms Reason Comments Reminder Call Reason Onset Date Comments Recheck Immunizations 02/02/2023 Flu vaccination Reason Onset Date Comments Refill Request 02/19/2023 Reason Comments Refill Request Reason Comments Non-insulin Dependent Diabetes Mellitus Reason Onset Date Comments Established Patient Memory issue s. Breast Problem 05/14/2023 Mammogram at [facility] Reason Comments Follow Up Room 12We don't kno w why we are here.ECHO, ECG, Stress results Reason Comments Abnormal mammogram letter Reason Comments Mammogram Result Call Back Reason Comments Brain Wellness Specialty Diagnoses / Procedures Referred By Liliana silva Referred To Contact Diagnoses Memory difficulties Procedures CONSULT TO BRAIN HEALTH & WE[facility] OFFICE/OUTPATIENT [facility] 60 MINUTES Comfort Patterson APRN.CNS [address] [place] [address] Referral ID Status Reason Start Date Expiration Date V isits Requested Visits Authorized [id number] Closed PCP Requested Referral 06/15/2023 06/14/2024 1 [...] requesting allergy list to be faxed to [facility] Reason Comments Cardiac Clearance Anticoagulation Reason Comments Follow Up Back Pain Reason Comments Faxed to [facility] Reason Comments F/U 6 months Reason Comments [facility] requesting record s Reason Comments Established Patient Reason Comments Medication Dosage Adjustment Reason Onset Date Comments Population Health Navigation Outreach 08/17/2024 [facility] Reason Onset Date Comments Population Health Navigation Outreach 09/18/2024 [facility] Care Teams (unrecognized sec tion and content) Lithoduplicator Operator Relationship Specialty Start Date End Date Guillaume Dominguez MD [address] [place] [address] PCP - General 07/30/04 Lithoduplicator Operator Relationship Specialty Start Date End Date Guillaume Dominguez MD [address] [place] [address] PCP - General 07/30/04 Lithoduplicator Operator Relationship Specialty Start Date End Date Guillaume Dominguez MD [address] [place] [address] PCP - General 07/30/04 Lithoduplicator Operator Relationship Specialty Start Date End Date Guillaume Dominguez MD [facility] [place] [address] PCP - General 07/30/04 Lithoduplicator Operator Relationship Specialty Start Date End Date Guillaume Dominguez MD [facility] [place] [address] PCP - General 07/30/04 Lithoduplicator Operator Relationship Specialty Start Date End Date Guillaume Dominguez MD [address] [place] [address] [place] [address] PCP - General 07/30/04 Lithoduplicator Operator Relationship Specialty Start Date End Date Guillaume Dominguez MD [address] [place] [address] PCP - General 07/30/04 Lithoduplicator Operator Relationship Specialty Start Date End Date Guilalume Dominguez MD [address] [place] [address] PCP - General 07/30/04 Lithoduplicator Operator Relationship Specialty Start Date End Date Guillaume Dominguez MD [address] [place] [address], [place] [address] PCP - General 07/30/04 Lithoduplicator Operator Relationship Specialty Start Date End Date Guillaume Dominguez MD [address] [place] [address], [place] [address] PCP - General 07/30/04 Lithoduplicator Operator Relationship Specialty Start Date End Date Guillaume Dominguez MD [address] [place] [address], [place] [address] PCP - General 07/30/04 Lithoduplicator Operator Relationship Specialty Start Date End Date Guillaume Dominguez MD [address] [place] [address], [place] [address] PCP - General 07/30/04 Lithoduplicator Operator Relationship Specialty Start Date End Date Guillaume Dominguez MD [address] [place] [address], [place] [address] PCP - General 07/30/04 Lithoduplicator Operator Relationship Specialty Start Date End Date Guillaume Dominguez MD [address] [place] [address], [place] [address] PCP - General 07/30/04 Lithoduplicator Operator Relationship Specialty Start Date End Date Guillaume Dominguez MD [address] [place] [address], [place] [address] PCP - General 07/30/04 Lithoduplicator Operator Relationship Specialty Start Date End Date Guillaume Dominguez MD [address] [place] [address] PCP - General 07/30/04 Lithoduplicator Operator Relationship Specialty Start Date End Date Guillaume Dominguez MD [address] [place] [address] PCP - General 07/30/04 Lithoduplicator Operator Relationship Specialty Start Date End Date Guillaume Dominguez MD [address] [place] [address], [place] [address] PCP - General 07/30/04 Lithoduplicator Operator Relationship Specialty Start Date End Date Guillaume Dominguez MD [address] [place] [address], [place] [address] PCP - General 07/30/04 Lithoduplicator Operator Relationship Specialty Start Date End Date Guillaume Dominguez MD [address] [place] [address], [place] [address] PCP - General 07/30/04 Lithoduplicator Operator Relationship Specialty Start Date End Date Guillaume Dominguez MD [facility] [place] [address] PCP - General 07/30/04 Lithoduplicator Operator Relationship Specialty Start Date End Date Guillaume Dominguez MD [address] [place] [address], [place] [address] PCP - General 07/30/04 Lithoduplicator Operator Relationship Specialty Start Date End Date Guillaume Dominguez MD [facility] [place] [address] PCP - General 07/30/04 Lithoduplicator Operator Relationship Specialty Start Date End Date Guillaume Dominguez MD [address] [place] [address], [place] [address] PCP - General 07/30/04 Lithoduplicator Operator Relationship Specialty Start Date End Date Guillaume Dominguez MD [address] [place] [address] PCP - General 07/30/04 Lithoduplicator Operator Relationship Specialty Start Date End Date Guillaume Dominguez MD [address] [place] [address] PCP - General 07/30/04 Lithoduplicator Operator Relationship Specialty Start Date End Date Guillaume Dominguez MD [address] [place] [address], [place] [address] PCP - General 07/30/04 Lithoduplicator Operator Relationship Specialty Start Date End Date Guillaume Dominguez MD [address] [place] [address], [place] [address] PCP - General 07/30/04 Lithoduplicator Operator Relationship Specialty Start Date End Date Guillaume Dominguez MD [facility] [place] [address] PCP - General 07/30/04 Lithoduplicator Operator Relationship Specialty Start Date End Date Guillaume Dominguez MD [facility] [place] [address] PCP - General 07/30/04 Lithoduplicator Operator Relationship Specialty Start Date End Date Guillaume Dominguez MD [facility] [place] [address] PCP - General 07/30/04 Lithoduplicator Operator Relationship Specialty Start Date End Date Guillaume Dominguez MD [facility] [place] [address] PCP - General 07/30/04 Lithoduplicator Operator Relationship Specialty Start Date End Date Guillaume Dominguez MD [address] [place] [address], [place] [address] PCP - General 07/30/04 Lithoduplicator Operator Relationship Specialty Start Date End Date Guillaume Dominguez MD [address] [place] [address] PCP - General 07/30/04 Lithoduplicator Operator Relationship Specialty Start Date End Date Guillaume Dominguez MD [address] [place] [address] PCP - General 07/30/04 Lithoduplicator Operator Relationship Specialty Start Date End Date Guillaume Dominguez MD [address] [place] [address] PCP - General 07/30/04 Lithoduplicator Operator Relationship Specialty Start Date End Date Guillaume Dominguez MD [address] [place] [address] PCP - General 07/30/04 Lithoduplicator Operator Relationship Specialty Start Date End Date Guillaume Dominguez MD [address] [place] [address] PCP - General 07/30/04 Lithoduplicator Operator Relationship Specialty Start Date End Date Guillaume Dominguez MD [address] [place] [address] PCP - General 07/30/04 Lithoduplicator Operator Relationship Specialty Start Date End Date Guillaume Dominguez MD [address] [place] [address] PCP - General 07/30/04 Lithoduplicator Operator Relationship Specialty Start Date End Date Guillaume Dominguez MD [address] [place] [address] PCP - General 07/30/04 Lithoduplicator Operator Relationship Specialty Start Date End Date Guillaume Dominguez MD [address] [place] [address] PCP - General 07/30/04 Lithoduplicator Operator Relationship Specialty Start Date End Date Guillaume Dominguez MD [address] [place] [address] PCP - General 07/30/04 Lithoduplicator Operator Relationship Specialty Start Date End Date Guillaume Dominguez MD [address] [place] [address] PCP - General 07/30/04 Team Status: Active Member Role Status Dates Dr. Guillaume Dominguez MD Family Provider Active Dr. Guillaume Dominguez MD Primary Care Provider Active Team Status: Inactive Member Role Status Dates Dr. Guillaume Dominguez MD Primary Care Provider Active Dr. Natalya Medina MD Emergency Provider Active Lithoduplicator Operator Relationship Specialty Start Date End Date Guillaume Dominguez MD [address] [place] [address] PCP - General 07/30/04 Lithoduplicator Operator Relationship Specialty Start Date End Date Guillaume Dominguez MD [address] [place] [address] PCP - General 07/30/04 Lithoduplicator Operator Relationship Specialty Start Date End Date Guillaume Dominguez MD [address] [place] [address] PCP - General 07/30/04 Team Status: Inactive Member Role Status Dates Dr. Guillaume Dominguez MD Primary Care Provider Active Dr. Natalya Medina MD Attending Provider, Emergency Provider Active Team Status: Inactive Member Role Status Dates Dr. Guillaume Dominguez MD Primary Care Provider Active Dr. Kerwin Kumar DO Emergency Provider Active Lithoduplicator Operator Relationship Specialty Start Date End Date Guillaume Dominguez MD [address] [place] [address] PCP - General 07/30/04 Lithoduplicator Operator Relationship Specialty Start Date End Date Guillaume Dominguez MD [address] [place] [address] PCP - General 07/30/04 Lithoduplicator Operator Relationship Specialty Start Date End Date Guillaume Dominguez MD [address] [place] [address] PCP - General 07/30/04 Lithoduplicator Operator Relationship Specialty Start Date End Date Guillaume Dominguez MD [address] [place] [address] PCP - General 07/30/04 Lithoduplicator Operator Relationship Specialty Start Date End Date Guillaume Dominguez MD [address] [place] [address] PCP - General 07/30/04 Lithoduplicator Operator Relationship Specialty Start Date End Date Guillaume Dominguez MD [address] [place] [address] PCP - General 07/30/04 Lithoduplicator Operator Relationship Specialty Start Date End Date Guillaume Dominguez MD [address] [place] [address] PCP - General 07/30/04 Lithoduplicator Operator Relationship Specialty Start Date End Date Guillaume Dominguez MD [address] [place] [address] PCP - General 07/30/04 Lithoduplicator Operator Relationship Specialty Start Date End Date Guillaume Dominguez MD [address] [place] [address] PCP - General 07/30/04 Lithoduplicator Operator Relationship Specialty Start Date End Date Guillaume Dominguez MD [address] [place] [address] PCP - General 07/30/04 Lithoduplicator Operator Relationship Specialty Start Date End Date Guillaume Dominguez MD [address] [place] [address] PCP - General 07/30/04 Lithoduplicator Operator Relationship Specialty Start Date End Date Guillaume Dominguez MD [address] [place] [address] PCP - General 07/30/04 Lithoduplicator Operator Relationship Specialty Start Date End Date Guillaume Dominguez MD [address] [place] [address] PCP - General 07/30/04 Lithoduplicator Operator Relationship Specialty Start Date End Date Guillaume Dominguez MD [address] [place] [address] PCP - General 07/30/04 Lithoduplicator Operator Relationship Specialty Start Date End Date Guillaume Dominguez MD [address] [place] [address] PCP - General 07/30/04 Lithoduplicator Operator Relationship Specialty Start Date End Date Guillaume Dominguez MD [address] [place] [address] PCP - General 07/30/04 Lithoduplicator Operator Relationship Specialty Start Date End Date Guillaume Dominguez MD [address] [place] [address] PCP - General 07/30/04 Lithoduplicator Operator Relationship Specialty Start Date End Date Guillaume Dominguez MD [address] [place] [address] PCP - General 07/30/04 Lithoduplicator Operator Relationship Specialty Start Date End Date Guillaume Dominguez MD [address] [place] [address] PCP - General 07/30/04 Lithoduplicator Operator Relationship Specialty Start Date End Date Guillaume Dominguez MD [address] [place] [address] PCP - General 07/30/04 Lithoduplicator Operator Relationship Specialty Start Date End Date Guillaume Dominguez MD [address] [place] [address] PCP - General 07/30/04 Lithoduplicator Operator Relationship Specialty Start Date End Date Guillaume Dominguez MD [address] [place] [address] PCP - General 07/30/04 Lithoduplicator Operator Relationship Specialty Start Date End Date Guillaume Dominguez MD [address] [place] [address] PCP - General 07/30/04 Lithoduplicator Operator Relationship Specialty Start Date End Date Guillaume Dominguez MD [address] [place] [address] PCP - General 07/30/04 Lithoduplicator Operator Relationship Specialty Start Date End Date Guillaume Dominguez MD [address] [place] [address] PCP - General 07/30/04 Lithoduplicator Operator Relationship Specialty Start Date End Date Guillaume Dominguez MD [address] [place] [address] PCP - General 07/30/04 Comfort Patterson, MANAGING EDITOR.CHEMICAL ENGINEERING TECHNICIAN [address] [place] [address] Strategy Manager Internal Medicine 05/08/24 Josefa Caputo MANAGING EDITOR.YARDING SUPERVISOR [address] [place] [address] Strategy Manager Internal Medicine 05/08/24 Lithoduplicator Operator Relationship Specialty Start Date End Date Guillaume Dominguez MD [address] [place] [address] PCP - General 07/30/04 Comfort Patterson, MANAGING EDITOR.CHEMICAL ENGINEERING TECHNICIAN [address] [place] [address] Strategy Manager Internal Medicine 05/08/24 Josefa Caputo MANAGING EDITOR.YARDING SUPERVISOR [address] [place] [address] Strategy Manager Internal Medicine 05/08/24 Lithoduplicator Operator Relationship Specialty Start Date End Date Guillaume Dominguez MD [address] [place] [address] PCP - General 07/30/04 Comfort Patterson APRN.CHEMICAL ENGINEERING TECHNICIAN [address] [place] [address] Strategy Manager Internal Medicine 05/08/24 Josefa Caputo MANAGING EDITOR.YARDING SUPERVISOR [address] [place] [address] Strategy Manager Internal Medicine 05/08/24 Lithoduplicator Operator Relationship Specialty Start Date End Date Guillaume Dominguez MD [address] [place] [address] PCP - General 07/30/04 Lithoduplicator Operator Relationship Specialty Start Date End Date Guillaume Dominguez MD [address] [place] [address] PCP - General 07/30/04 Comfort Patterson MANAGING EDITOR.CHEMICAL ENGINEERING TECHNICIAN [address] [place] [address] Strategy Manager Internal Medicine 05/08/24 Josefa Caputo MANAGING EDITOR.YARDING SUPERVISOR [address] [place] [address] Strategy Manager Internal Medicine 05/08/24 Lithoduplicator Operator Relationship Specialty Start Date End Date Guillaume Dominguez MD [address] [place] [address] PCP - General 07/30/04 Comfort Patterson, MANAGING EDITOR.CHEMICAL ENGINEERING TECHNICIAN [address] [place] [address] Strategy Manager Internal Medicine 05/08/24 Josefa Caputo APRN.YARDING SUPERVISOR [address] [place] [address] Strategy Manager Internal Medicine 05/08/24 Lithoduplicator Operator Relationship Specialty Start Date End Date Guillaume Dominguez MD [address] [place] [address] PCP - General 07/30/04 Comfort Patterson, MANAGING EDITOR.CHEMICAL ENGINEERING TECHNICIAN [address] [place] [address] Strategy Manager Internal Medicine 05/08/24 Josefa Caputo MANAGING EDITOR.YARDING SUPERVISOR [address] [place] [address] Strategy Manager Internal Medicine 05/08/24 Lithoduplicator Operator Relationship Specialty Start Date End Date Guillaume Dominguez [address] [place] [address] PCP - General Internal Medicine 08/02/24 Lithoduplicator Operator Relationship Specialty Start Date End Date Guillaume Dominguez MD [address] [place] [address] PCP - General 07/30/04 Comfort Patterson, MANAGING EDITOR.CHEMICAL ENGINEERING TECHNICIAN [address] [place] [address] Strategy Manager Internal Medicine 05/08/24 Josefa Caputo APRN.YARDING SUPERVISOR [address] [place] [address] Strategy Manager Internal Medicine 05/08/24 Lithoduplicator Operator Relationship Specialty Start Date End Date Guillaume Dominguez MD [address] [place] [address] PCP - General 07/30/04 Comfort Patterson, MANAGING EDITOR.CHEMICAL ENGINEERING TECHNICIAN [address] [place] [address] [facility] Internal Medicine 05/08/24 Josefa Caputo MANAGING EDITOR.YARDING SUPERVISOR [address] [place] [address] [facility] Internal Medicine 05/08/24 Lithoduplicator Operator Relationship Specialty Start Date End Date Guillaume Dominguez MD [address] [place] [address] PCP - General 07/30/04 Comfort Patterson, MANAGING EDITOR.CHEMICAL ENGINEERING TECHNICIAN [address] [place] [address] [facility] Internal Medicine 05/08/24 Josefa Caputo, MANAGING EDITOR.YARDING SUPERVISOR [address] [place] [address] [facility] Internal Medicine 05/08/24 Team Status: Inactive [...] August 11, 2024 End: August 11, 2024 Lithoduplicator Operator Relationship Specialty Start Date End Date Guillaume Dominguez MD [address] [place], [place] [address] PCP - General 07/30/04 Comfort Patterson APRN.CHEMICAL ENGINEERING TECHNICIAN [address] [place], [place] [id number] Strategy Manager Internal Medicine 05/08/24 Josefa Caputo APRN.YARDING SUPERVISOR [address] [place], [place] [id number] Strategy Manager Internal Medicine 08/22/24 Team Status: Active Member [...] Provider Active S tart: September 26, 2024 Lithoduplicator Operator Relationship Specialty Start Date End Date Guillaume Dominguez [address] [place], [place] [address] PCP - General Internal Medicine 08/02/24 Team [...] Provider Active S tart: October 31, 2024 Lithoduplicator Operator Relationship Specialty Start Date End Date Guillaume Dominguez MD [address] [place], [place] [address] PCP - General 07/30/04 Josefa Caputo MANAGING EDITOR.YARDING SUPERVISOR [address] [place], [place] [address] Strategy Manager Internal Medicine 08/22/24 Comfort Patterson APRN.CHEMICAL ENGINEERING TECHNICIAN [address] [place], [place] [address] Strategy Manager Internal Medicine 10/18/24 Goals (unrecognized section and [...] BE BASED ON THE PRIMARY CLINICAL RECORDS. [employer] [facility]. provides no warranty or guarantee of the accuracy or completeness of information in this document.
[2025-05-28 08:04] LABS: AST(SGOT) 218 U/L (<=31); Alanine Aminotransfer ALT/SGPT 282 U/L (<=34); Albumin, Serum 3.3 g/dL (3.4-4.8); Alkaline Phosphatase 813 U/L (35-104); Anion Gap 10 (7-18); BUN 22 mg/dL (4-19); BUN/Creat Ratio 46.4 RATIO (10-20); Calcium,Total 9.4 mg/dL (7.6-11.0); Carbon Dioxide 24.9 mmol/L (20.0-29.0); Chloride 103 mmol/L (96-106); Globulin 3.4 g/dL (2.2-4.2); Glucose 150 mg/dL (70-99); Potassium 4.0 mmol/L (3.5-5.1)
== END ==
LOC: OLS.ACH 05:00
PROVIDERS: PCP Internal Medicine; Visit Provider Internal Medicine
DX: E11.65 Type 2 diabetes mellitus with hyperglycemia (principal)
CPT/HCPCS: 36415; 80053